=== PATIENT | female | born 1955 | race Caucasian/White ===

== ENCOUNTER 2017-05-21 13:19 | Emergency (ER) | payer MEDICARE, MEDICAID, SELFPAY ==
[2016-07-13 11:45] VITALS: BMI 31.4
[2017-05-21 13:20] VITALS: BP 102/60; PULSE 85; RESP 16; TEMP 36.7; O2SAT 98; BMI 26.9
[2017-05-21 13:26] LABS: Bedside Glucose 309 mg/dL (70-110)
[2017-05-21 13:58] LABS: Absolute Lymphocyte Count 1.42 X10^3/ul (0.83-4.51); Absolute Neutrophil Count 8.1 X10^3/uL (2.0-7.7); Basophil# 0.06 X10^3/uL; Basophil% 0.6 % (0-1); Eosinophil# 0.13 X10^3/uL; Eosinophils% 1.2 % (0-5); Hematocrit 39.8 % (37-47); Hemoglobin 13.2 g/dl (12.0-15.0); Lymphocyte # 1.42 X10^3/ul (4.0); Lymphocyte % 13.4 % (19-41); Mean Corp Hgb Conc 33.2 g/gl (32-36); Mean Corpuscular Hgb 29.7 pg (27.0-32.0); Mean Corpuscular Volume 89.4 fL (81-99); Mean Platelet Vol. 10.6 fl (6.2-12.0); Monocyte# 0.83 X10^3/uL; Monocyte% 7.8 % (0-10); Neutrophil # 8.12 X10^3/uL (2.7-7.7); Neutrophil % 76.6 % (47-70); POSITIVE COUNT NO; POSITIVE DIFFERENTIAL NO; POSITIVE MORPHOLOGY NO; Platelet Count 273 K/mm3 (150-450); RBC Distribution Width SD 41.9 fl (35.1-43.9); Red Blood Count 4.45 M/mm3 (4.2-5.4); White Blood Count 10.6 K/mm3 (4.4-11.0)
[2017-05-21 14:03] LABS: Anion Gap 9 (5-15); BUN 15 mg/dL (7-18); BUN/Creat Ratio 16.5 RATIO (10-20); Calcium,Total 9.6 mg/dL (8.5-10.1); Chloride 101 mmol/L (98-107); Creatinine, Serum 0.91 mg/dL (0.55-1.02); EST Glomerular Filtration Rate 67 mL/min (>60); Est Glom Filt Rate - Afr Amer 80 mL/min (>60); Estimated Creatinine Clearance 57.68 ml/min; Glucose 301 mg/dL (70-110); Potassium 3.4 mmol/L (3.5-5.1); Sodium Level 135 mmol/L (136-145)
[2017-05-21] MEDS: Ondansetron 4 MG/2 ML Vial IV (14:25)
[2017-05-21] MEDS: 0.9% Normal Saline 1,000 ML 1000 ML IV (14:25)
[2017-05-21] MEDS: Acetaminophen 325 MG Tablet 650 MG PO (15:38)
[2017-05-21 16:15] LABS: Bacteria 0 SEEN /hpf (None Seen); Mucous, Urine 0 SEEN /hpf (<or=2+); Red Blood Cells-Urine 0 SEEN /hpf (0-5); White Blood Cells 0 SEEN /hpf (0-5)
[2017-05-21 16:26] VITALS: BP 103/64; PULSE 60; RESP 16; O2SAT 99
[2017-05-21 16:34] LABS: Color, Urine Yellow (Yellow); Glucose, Dipstick Normal (Normal); Ketone-Dipstick 5 mg/dl (Negative); Leukocyte Esterase-Dipstick Negative /ul (Negative); Nitrite-Dipstick Negative (Negative); Occult Blood-Urine Negative /ul (Negative); Protein-Dipstick Negative (Negative); Urine Bilirubin Dipstick Negative (Negative); Urine Clarity Clear (Clear); Urine Urobilinogen Normal (Normal)
[2017-05-21 16:53] LABS: Squamous Epithelial Cells - UA 0-5 SEEN /hpf (5-10)
[2017-05-21 16:54] LABS: Amorphous Sediment 1+
--- NOTE | 2017-05-21 17:04 | ED.VISSUMM ---
- ER Visit Summary Date of Service: 05/21/17 Chief Complaint: [Abdominal pain] History of Present Illness: The patient is a 61 F [resents to the emergency department with complaint of abdominal pain, nausea and vomiting, and diarrhea. Patient states she was discharged from the hospital yesterday after being admitted for urinary tract infection. Patient try to take her medications today and she threw them up so she presented back to the emergency department for evaluation. Patient denies any fever at home. Patient denies any blood in her stool or black tarry stools. Past medical history significant for diabetes, MS, hypertension, CAD, CVA.] Physical Examination: [HEENT-PERRLA, EOMI. Cranial nerves II through XII grossly intact. TMs clear. Mucous membranes moist. No adenopathy. Cardiovascular-regular rate and rhythm without murmur or ectopy Lungs-clear to auscultation, chest wall stable without crepitus or subcu emphysema Abdomen-normoactive bowel sounds. Abdomen soft with some suprapubic tenderness on palpation. There is no rebound, rigidity, or peritoneal signs. Extremities-intact ?4, normal range of motion, normal pulses, atraumatic] Test Results: [CBC with differential obtained showed a white blood cell count 10.6, hemoglobin 13, hematocrit 40, platelets 273. Chemistries unremarkable other than a potassium of 3.4. Urinalysis was normal.] Emergency Department Course and Treatment: [Patient was medicated in the department with morphine and Zofran. Patient did feel improved. Patient had her imaging studies from her last visit evaluated as patient had a CT scan of the abdomen and pelvis was performed 3 days ago that was unremarkable. She also had an ultrasound of the kidneys and bladder that was also unremarkable. At this point I do not feel patient needs any further imaging or studies.] Treatment Plan: [Patient will be given a prescription for 12 Percocet for home. Patient has antiemetics at home. Patient to continue with her antibiotics at home.] Disposition: [Discharged home in stable condition. Patient advised to return if worsening pain, fever, persistent vomiting and diarrhea and dehydration. Patient to return if condition should worsen in any way.] Impression: [Abdominal pain Gastroenteritis] This note was generated with [employer] dictation software. It may contain incorrect words, spelling, and punctuation that were not noted in review of the chart prior to signing ED Disposition - Plan for ED Patient: Chief Complaint: Abd Pain Referrals: Matthew Noble Chi, MD [Primary Care Provider] -
--- NOTE | 2017-05-21 17:09 | ED.DCSUM_ITS ---
- ER Visit Summary Date of Service: 05/21/17 Chief Complaint: [Abdominal pain] History of Present Illness: The patient is a 61 F [resents to the emergency department with complaint of abdominal pain, nausea and vomiting, and diarrhea. Patient states she was discharged from the hospital yesterday after being admitted for urinary tract infection. Patient try to take her medications today and she threw them up so she presented back to the emergency department for evaluation. Patient denies any fever at home. Patient denies any blood in her stool or black tarry stools. Past medical history significant for diabetes , MS, hypertension, CAD, CVA.] Physical Examination: [HEENT-PERRLA, EOMI. Cranial nerves II through XII grossly intact. TMs clear. Mucous membranes moist. No adenopathy. Cardiovascular-regular rate and rhythm without murmur or ectopy Lungs-clear to auscultation, chest wall stable without crepitus or subcu emphysema Abdomen-normoactive bowel sounds. Abdomen soft with some suprapubic tenderness on palpation. There is no rebound, rigidity, or peritoneal signs. Extremities-intact ?4, normal range of motion, normal pulses, atraumatic] Test Results: [CBC with differential obtained showed a white blood cell count 10.6, hemoglobin 13, hematocrit 40, platelets 273. Chemistries unremarkable other than a potassium of 3.4. Urinalysis was normal.] Emergency Department Course and Treatment: [Patient was medicated in the department with morphine and Zofran. Patient did feel improved. Patient had her imaging studies from her last visit evaluated as patient had a CT scan of the abdomen and pelvis was performed 3 days ago that was unremarkable. She also had an ultrasound of the kidneys and bladder that was also unremarkable. At this point I do not feel patient needs any further imaging or studies.] Treatment Plan: [Patient will be given a prescription for 12 Percocet for home. Patient has antiemetics at home. Patient to continue with her antibiotics at home.] Disposition: [Discharged home in stable condition. Patient advised to return if worsening pain, fever, persistent vomiting and diarrhea and dehydration. Patient to return if condition should worsen in any way.] Impression: [Abdominal pain Gastroenteritis] This note was generated with [employer] dictation software. It may contain incorrect words, spelling, and punctuation that were not noted in review of the chart prior to signing ED Disposition - Plan for ED Patient: Chief Complaint: Abd Pain Referrals: Matthew Noble Chi, MD [Primary Care Provider] -
--- NOTE | 2017-05-21 17:09 | ED.DEP ---
ED Disposition - Plan for ED Patient: Chief Complaint: Abd Pain Instructions: ED Abdominal Pain Unkn Cause, ED Gastroenteritis Viral Prescriptions: Oxycodone HCl/Acetaminophen [Percocet 5/325] 1 tab PO Q6H PRN PRN #12 tab PRN Reason: Pain Referrals: Matthew Noble Chi, MD [Primary Care Provider] - 3-5 Days
== END 2017-05-21 17:30 | disposition home or self-care (01) ==
PROVIDERS: Emergency Provider Emergency Medicine; Family Provider Family Medicine Geriatric Medicine; PCP Family Medicine Geriatric Medicine
DX: K52.9 Noninfective gastroenteritis and colitis, unspecified (principal); I25.10 Atherosclerotic heart disease of native coronary artery without angina pectoris; G35 Multiple sclerosis; E11.9 Type 2 diabetes mellitus without complications; I10 Essential (primary) hypertension; I25.2 Old myocardial infarction; Z79.02 Long term (current) use of 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/antiplatelets; Z79.82 Long term (current) use of aspirin; Z79.4 Long term (current) use of insulin; Z79.899 Other long term (current) drug therapy; Z87.440 Personal history of urinary (tract) infections; Z86.73 Personal history of transient ischemic attack (TIA), and cerebral infarction without residual deficits; Z95.5 Presence of coronary angioplasty implant and graft
CPT/HCPCS: 80048; 81001; 82962; 85025; 96361; 96374; 99285; P9612; A4216; J2405

== ENCOUNTER 2017-05-26 16:58 | Emergency (ER) | payer MEDICARE, MEDICAID, SELFPAY ==
[2016-07-13 11:45] VITALS: BMI 31.4
[2017-05-26 17:04] VITALS: BP 90/54; PULSE 50; RESP 16; TEMP 36.4; O2SAT 98; BMI 29.5
[2017-05-26 17:08] VITALS: BP 85/47; PULSE 49; RESP 16; O2SAT 100
--- NOTE | 2017-05-26 17:13 | EKG12_ITS ---
Test Reason : Blood Pressure : / mmHG Vent. Rate : 052 BPM Atrial Rate : 052 BPM P-R Int : 170 ms QRS Dur : 116 ms QT Int : 498 ms P-R-T Axes : 057 -32 057 degrees QTc Int : 463 ms Sinus bradycardia Left axis deviation Low voltage QRS Inferior infarct , age undetermined Abnormal ECG Confirmed by ALLAN WITT, DORYS ([id number]), web content editor ANA MEDRANO ([id number]) on 06/02/2017 8:32:04 AM Referred By: TYREE Confirmed By:DORYS LEMUS MD
[2017-05-26] MEDS: 0.9% Normal Saline 1,000 ML 1000 ML IV (17:29)
--- NOTE | 2017-05-26 17:36 | ED.RN ---
DARELL KATZ RN, OBTAINED URINE VIA STRAIGHT CATH.
[2017-05-26 17:51] LABS: Bacteria 0 SEEN /hpf (None Seen)
[2017-05-26 18:04] LABS: Absolute Lymphocyte Count 1.21 X10^3/ul (0.83-4.51); Absolute Neutrophil Count 5.6 X10^3/uL (2.0-7.7); Basophil# 0.05 X10^3/uL; Basophil% 0.6 % (0-1); Eosinophil# 0.11 X10^3/uL; Eosinophils% 1.4 % (0-5); Hematocrit 31.4 % (37-47); Hemoglobin 10.2 g/dl (12.0-15.0); Lymphocyte # 1.21 X10^3/ul (4.0); Lymphocyte % 15.7 % (19-41); Mean Corp Hgb Conc 32.5 g/gl (32-36); Mean Corpuscular Hgb 29.8 pg (27.0-32.0); Mean Corpuscular Volume 91.8 fL (81-99); Monocyte# 0.68 X10^3/uL; Monocyte% 8.8 % (0-10); Neutrophil # 5.64 X10^3/uL (2.7-7.7); Neutrophil % 73.4 % (47-70); POSITIVE COUNT NO; POSITIVE DIFFERENTIAL NO; POSITIVE MORPHOLOGY NO; Platelet Count 220 K/mm3 (150-450); RBC Distribution Width CV 12.7 % (11.6-14.6); RBC Distribution Width SD 41.6 fl (35.1-43.9); Red Blood Count 3.42 M/mm3 (4.2-5.4); White Blood Count 7.7 K/mm3 (4.4-11.0)
[2017-05-26] MEDS: fentaNYL 100 MCG/2 ML Ampul 12.5 MCG IV (18:13)
[2017-05-26] MEDS: 0.9% Normal Saline 1,000 ML 150 ML IV (18:13)
[2017-05-26] MEDS: Ondansetron 4 MG/2 ML Vial IV (18:16)
[2017-05-26 18:17] VITALS: BP 102/74; PULSE 61; RESP 16; O2SAT 100
[2017-05-26 18:17] LABS: Color, Urine Yellow (Yellow); Glucose, Dipstick 250 mg/dl (Normal); Ketone-Dipstick Negative (Negative); Leukocyte Esterase-Dipstick 25 /ul (Negative); Nitrite-Dipstick Negative (Negative); Occult Blood-Urine Negative /ul (Negative); Protein-Dipstick 15 mg/dl (Negative); Urine Bilirubin Dipstick Negative (Negative); Urine Clarity Cloudy (Clear); Urine Urobilinogen 1 mg/dl (Normal)
[2017-05-26 18:23] LABS: Anion Gap 8 (5-15); BUN 28 mg/dL (7-18); BUN/Creat Ratio 35.4 RATIO (10-20); Calcium,Total 8.4 mg/dL (8.5-10.1); Chloride 104 mmol/L (98-107); Creatinine, Serum 0.79 mg/dL (0.55-1.02); EST Glomerular Filtration Rate 78 mL/min (>60); Est Glom Filt Rate - Afr Amer 94 mL/min (>60); Estimated Creatinine Clearance 66.44 ml/min; Glucose 312 mg/dL (70-110); Sodium Level 136 mmol/L (136-145)
[2017-05-26 18:33] LABS: Mucous, Urine 2+ /hpf (<or=2+)
[2017-05-26 18:35] LABS: White Blood Cells 0-5 SEEN /hpf (0-5)
[2017-05-26 18:39] LABS: Red Blood Cells-Urine 0-5 SEEN /hpf (0-5)
[2017-05-26 18:53] LABS: Renal Epithelial Cells 0 SEEN /hpf (0-5); Transitional Epithelial - Ur 5-10 SEEN /hpf (0-5)
--- NOTE | 2017-05-26 18:53 | ED.VISSUMM ---
- ER Visit Summary Date of Service: 05/26/17 Chief Complaint: Headache History of Present Illness: The patient is a 61 F who had a chronic ongoing headache for some time. Patient states she was seen at pain management today. She was given a prescription for Maxalt. She took her first dose around 330 this afternoon and then felt cold inside and lightheaded. EMS was called and transported her to the emergency room. She states the only other medication change recently has been dose of Aricept changed last week. She does state she was recently in physical therapy for some right-sided weakness. Patient reports a history of prior MS. She follows with Dr. Sher in [place]. Physical Examination: Blood pressure is 90/54, temperature 97.6, heart rate 50, respiratory rate 16, pulse ox 98% on room air. Patient is lying in bed with a wash rag over her eyes. She is in no acute distress. Heart is bradycardic and regular. Lung sounds are clear. Abdomen is soft nontender. Neuro exam reveals mild right upper extremity weakness. Normal strength is noted in the lower extremities. Sensation is normal throughout. Test Results: CBC was normal white count hemoglobin 10.2. On review of prior records her hemoglobin has ranged between 10 and 13 recently. Chemistry studies reveal BUN 28 glucose of 312. Troponin is less than 0.02. Lactic acid is normal at 1.0. EKG is sinus bradycardia at 52 bpm. No acute ischemia is noted. Emergency Department Course and Treatment: Patient is given IV fluids. Repeat systolic pressures are over 100. She is given a small dose of fentanyl and Zofran for her headache. On repeat evaluation she is resting comfortably. Blood pressure has maintained over 100 systolic. She is her headache is improved. This time she will be discharged to home. She is to call her pain management doctor tomorrow about the Maxalt that she started today. Treatment Plan: [] Disposition: Discharge Impression: 1. Cephalgia, improved 2. Hypotension, improved This note was generated with [employer] dictation software. It may contain incorrect words, spelling, and punctuation that were not noted in review of the chart prior to signing ED Disposition - Plan for ED Patient: Chief Complaint: Headache Referrals: Matthew Noble Chi, MD [Primary Care Provider] -
[2017-05-26 18:54] LABS: Squamous Epithelial Cells - UA 5-10 SEEN /hpf (5-10)
[2017-05-26 20:23] VITALS: BP 110/56; PULSE 56; RESP 16; O2SAT 98
--- NOTE | 2017-05-26 20:50 | ED.DEP ---
ED Disposition - Plan for ED Patient: Chief Complaint: Headache Instructions: ED Cephalgia Unspecified, ED Hypotension All Causes Referrals: Matthew Noble Chi, MD [Primary Care Provider] - 1-2 Days if not improving
[2017-05-26 21:18] VITALS: BP 124/69; PULSE 55; RESP 16; O2SAT 98
== END 2017-05-26 21:20 | disposition home or self-care (01) ==
PROVIDERS: Emergency Provider Emergency Medicine; Family Provider Family Medicine Geriatric Medicine; PCP Family Medicine Geriatric Medicine
DX: R51 Headache (principal); G89.29 Other chronic pain; I95.9 Hypotension, unspecified; G35 Multiple sclerosis; I51.81 Takotsubo syndrome; I10 Essential (primary) hypertension; R00.1 Bradycardia, unspecified; R53.1 Weakness; Z72.0 Tobacco use; I25.2 Old myocardial infarction; Z79.02 Long term (current) use of 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/antiplatelets; Z79.82 Long term (current) use of aspirin; Z79.4 Long term (current) use of insulin; Z79.899 Other long term (current) drug therapy
CPT/HCPCS: 80048; 81001; 83605; 84484; 85025; 93005; 96361; 96374; 96375; 99285; J7030; A4216; J2405

== ENCOUNTER 2017-05-27 12:00 | Outpatient (RCR) | payer MEDICARE, MEDICAID, SELFPAY ==
[2016-07-13 11:45] VITALS: BMI 31.4
--- NOTE | 2017-04-15 13:39 | HP.PTEVAL_ITS ---
Patient's Visit Information ELO HERNANDEZ is a 61 year old F referred to Physical Therapy by Matthew Noble with a diagnosis of MS AND FALLS. Date of Evaluation: 04/15/17 Physical Therapist: Irene Bear - Visit Plan Frequency: 2-3x /Week Duration: 4-6 Weeks Plan: GAIT AND BALANCE TRAINING. CORE AND INDIA LE ROM, STRETCHING AND STRENGTHEING TOLERATED TO HELP MEET SET GOALS. - Subjective Subjective: Disability: YES SINCE 2001 FOR MS. Present symptoms: INDIA CALF PAIN AND INDIA LEG WEAKNESS. RECENT FALL 02/16/17. Present since: JAN 2017. Pain Scale: WORST 9/10, LEAST 0/10. Currently: /10. Commenced as a result of: FALLS. Symptoms at onset: BOTH CALVES. Worse: GETTING UP AND DOWN, STANDING TOO LONG, PROLONGED WALKING. Better: SITTING DOWN AND PROPPING LEGS UP. Disturbed sleep: NO. Previous history/Previous treatment: HISTORY OF CALF PAIN SINCE 1982 WHEN SHE HAD 3 BACK SURGERIES. INCREASINGLY DEBILITATING. WORSE WITH RECENT FALLS. FELL 01/17/17 THEN MULTIPLE FALLS AFTER THAT. ADMITTED TO [facility] FOLLOWED BY ABOUT 7 WEEKS FOR REHAB AT A SKILLED NURSING WITH D/ C HOME 03/10/17. Coughing/sneezing/straining: NEGATIVE. Gait: CAME HOME FROM SKILLED NURSING IN A WHEEL CHAIR BUT TRANSITIONED TO A ROLLATOR. Difficulty initiating urinatin: NO. Accidents: MULTIPLE FALLS. FALL AT SKILLED NURSING RECENTLY WITH SPRAINING RIGHT ANKLE AND IN WALKING BOOT FOR 6 WEEKS. OUT OF ANKLE BRACE Thursday04/10/17 AND IT SEEMS FINE NOW. Unexplained weight loss: NO. Imaging: LEFT FOOT 5TH TOE FX ABOUT 2 WEEKS AGO ON X-RAY - PATIENT RAN OVER IT WITH THE W/C. PMH: SEE BELOW. MS. KIDNEY FAILURE. - Objective THIS PATIENT AMBULATES INDEP'LY INTO PT WITH A ROLLATOR X APPROX 300 FEET LEANING HEAVILY ON WALKER, WITH DECREASED CADANCE AND MILD SOB. SHE IS WEARING INDIA KNEE BRACES THAT SHE REPORTS SHE JUST Kixer YESTERDAY. SHE STATES THEY ARE HELPING. SHE IS UNABLE TO TRANSITION INDEP'LY FROM SIT TO STAND WITHOUT UE ASSIST. HER POSTURE IS POOR. FORWARD HEAD, ROUNDED SHOULDERS, INCREASED KYPHOSIS AND INCREASED TRUNK FLEXION. ACTIVE CORRECTION OF SITTING POSTURE INCREASES HER NECK PAIN. LUMBAR MVMT LOSS: FLEX - MOD, EXT - DIMITRI, INDIA SG - DIMITRI. CERVICAL MVMT LOSS: FLEX - NIL, PRO - NIL, EXT - DIMITRI, INDIA ROT - MOD TO DIMITRI, INDIA SB - DIMITRI. UNABLE TO SLS ON EITHER LEG WITHOUT UE ASSIST. INDIA LE STRENGHT: HIPS 4-/5, KNEE EXT 3-/5, KNEE FLEX 4-/5, ANKLE DORSIFLEXION 5/5. RIGHT ANKLE FEELS STRONG NOW AND PATIENT DOES NOT COMPLAIN OF INCREASED PAIN WITH TESTING. LEFT TOES NT. POOR CORE STRENGTH. - Goals Goal 1:: DECREASE C/O INDIA CALF PAIN Goal Time Frame: 4-6 Weeks Goal 2:: IMPROVE ADL, STANDING, RISING FROM SITTING AND WALKING FUNCTION Goal Time Frame: 4-6 Weeks Goal 3:: INDEP AND SAFE GAIT ON ALL SURFACES WITH LEAST AD Goal Time Frame: 4-6 Weeks Goal 4:: INDEP HEP Goal Time Frame: 4-6 Weeks - Rehabilitation Potential Rehabilitation Potential: Fair - Anticipated Interventions Patient/Client Instruction: Educate patient on: Condition, Plan of Care, Risk Factors, Benefits of Fitness Program For the Purpose of:: To improve self management Thank you for the opportunity to evaluate your patient. For Medicare and Medicare HMO plans, please review the plan of care and approve it. It will need to be FAXED BACK to us at [phone] for Medicare purposes. Please let me know if there are questions or concerns regarding this plan of care. Physician Signature: Date:
--- NOTE | 2017-05-18 15:57 | HP.PTREVAL_ITS ---
Matthew Joshi, It has been my pleasure to treat ELO HERNANDEZ over the last 8 visits for MS AND FALLS. Please see the progress note below for an update on the physical therapy plan of care! Subjective: PATIENT REPORTS HER WALKING AND COORDINATION IS GETTING BETTER WITH THERAPY AND SHE WOULD LIKE TO CONTINUE IF POSSIBLE. HAVING SOME LEFT LOW BACK PAIN NOW THAT STARTED THURSDAY FOR NO APPARENT REASON AND SHE THINKS IT MIGHT BE HER KIDNEY AND SHE WILL GO TO DR. JOSHI IF IT DOESN'T GET BETTER. SHE REPORTS HER LAST PT VISIT WENT GOOD AND SHE LIKED WORKING ON Interneer TO GET OUT OF THE CHAIR. Objective/Function: PATIENT IS MAKING SLOW PROGRESS TOWARD THE SET PT GOALS AND WOULD BE A GOOD CANDIDATE TO CONTINUE FORMAL PT AT THIS TIME. SHE IS TOLERATING A SLOW PROGRESSION OF STRENGTHEING. UPON EXAM: THIS PATIENT AMBULATES INDEP'LY INTO PT WITH A ROLLATOR X APPROX 300 FEET WITH LESS DEPENDENCE ON WALKER, BUT WITH DECREASED CADANCE AND MILD SOB. SHE IS UNABLE TO TRANSITION INDEP'LY FROM SIT TO STAND WITHOUT UE ASSIST. HER POSTURE IS POOR. FORWARD HEAD, ROUNDED SHOULDERS, INCREASED KYPHOSIS AND INCREASED TRUNK FLEXION. ACTIVE CORRECTION OF SITTING POSTURE INCREASES HER NECK PAIN. LUMBAR MVMT LOSS: FLEX - MOD, EXT - DIMITRI, INDIA SG - DIMITRI. CERVICAL MVMT LOSS: FLEX - NIL, PRO - NIL, EXT - DIMITRI, INDIA ROT - MOD TO DIMITRI, INDIA SB - DIMITRI. UNABLE TO SLS ON EITHER LEG WITHOUT UE ASSIST. INDIA LE STRENGHT: HIPS 4-/5, KNEE EXT 3-/5, KNEE FLEX 4-/5, ANKLE DORSIFLEXION 5/5. POOR CORE STRENGTH. Plan Plan: CONT PT 2-3 TIMES A WEEK X 10 VISITS FOR GAIT, BALANCE AND LE STRETNGTHEING TOLERATED. PATIENT IS AGREEABLE. Goals Goal 1:: DECREASE C/O INDIA CALF PAIN Goal Time Frame: 4-6 Weeks Goal Progress: Goal Met Goal 2:: IMPROVE ADL, STANDING, RISING FROM SITTING AND WALKING FUNCTION Goal Time Frame: 4-6 Weeks Goal Progress: Progressing Goal 3:: INDEP AND SAFE GAIT ON ALL SURFACES WITH LEAST AD Goal Time Frame: 4-6 Weeks Goal Progress: Progressing Goal 4:: INDEP HEP Goal Time Frame: 4-6 Weeks Goal Progress: Progressing Anticipated Interventions Patient/Client Instruction: Educate patient on: Condition, Plan of Care, Risk Factors, Benefits of Fitness Program For the Purpose of:: To improve self management Please do not hesitate to contact me at [phone] by phone or Fax: if you have questions or concerns regarding this new plan of care! Sincerely, Irene Bear
--- NOTE | 2017-05-27 14:07 | HP.OTEVAL_ITS ---
Patient's Visit Information ELO HERNANDEZ is a 61 year old F, referred to Occupational Therapy by Matthew Noble,, with a diagnosis of Bilateral UE weakness. Date of Evaluation: 05/27/17 Occupational Therapist: Fatuma Bello, OTR/L, CHT - Subjective Subjective: Pt reports she had had neck sx fussion of C3-C5Nov. 2015 and has had weakness of UB following sx-pt was on TCU for three weeks and returned around [employer]-but returned back to the hospital with kidney faliure and heart attack-. pt states she has had 3 back sx- and was told recently that she has a hurniated disc C6- pt reports UB weakness that is limiting her ind. with BADLS and IADLS- pt lives in mobile home with rails and 8 strairs 1-3-4- - ROM ROM Comments: PT demo all UB ROM WNL - Strength Shoulder: right 3+/5 left 3+/5 Elbow: right 3+/5 left 3+/5 Vice President Client Services: Right 37# left 22# Lateral Pinch: right unable left unable Tripod Pinch: right unable left unable - Sensation Thumb: right 3.84 left 3.61 Index: right 3.84 left 3.61 Middle: right 3.84 left 3.61 Ring: right 3.84 left 3.61 Little: right 3.84 left 3.61 - DASH-Disabilities of Arm, Shoulder& Hand DASH Sum: 88 - Goals Goal:: pt will demo a increase in lateral and tripod pinch to 3# or greater for pt to become ind. with opening containers ind. by D/c. pt will demo a increase in BUE strength to 1/2 MMT to increase pts ind. with BADls and IADLS Goal:: pt will demo understanding of ad. eq. 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 pt on ad. eq. for pt to perform BADLS and IADLS at a ERICA level. Rehabilitation Potential: Good - Anticipated Interventions Anticipated Interventions: Strengthening, Joint Protection/Energy Conservation - Visit Plan Frequency: 1-2x /Week Duration: 4 Weeks General Plan: initiate vegetable i farmworker and pinch strengthening and ed. pt on ad. eq for pt to cont to be MOD ind. with BADLS and IADLS TEXT: Thank you for the opportunity to evaluate your patient. For Medicare and Medicare HMO plans, please review the plan of care and approve it. It will need to be FAXED BACK to us at [phone] for Medicare purposes. Please let me know if there are questions or concerns regarding this plan of care. Physician Signature: Date:
--- NOTE | 2017-06-24 16:57 | HP.OT.NRP ---
HP - Discharge Summary - Patient Information ELO HERNANDEZ was seen in my office for initial evaluation on 05/27/17. The following Plan of Care was established for this patient: Initial Frequency: 1-2x /Week Initial Duration: 4 Weeks - Anticipated Interventions Anticipated Interventions: Strengthening, Joint Protection/Energy Conservation This patient was last seen in our office 05/27/17. Pertinent comments regarding their Occupational therapy will appear below: pt was scheduled 2 visits and cancelled due to illness- pt has not reschedule visits at this time and is D/C due to non attendance At this point I will be discontinuing this patient from occupational therapy. I would be happy to see this patient again in the future if found appropriate by the physician. Thank you! Fatuma Bello, OTR/L, CHT
== END 2017-05-27 12:30 | disposition home or self-care (01) ==
LOC: PT 12:00
PROVIDERS: Family Provider Family Medicine Geriatric Medicine; PCP Family Medicine Geriatric Medicine; Visit Provider Family Medicine Geriatric Medicine
DX: R29.6 Repeated falls (principal)
CPT/HCPCS: 97110; 97162; 97166; 97530

== ENCOUNTER 2017-06-02 10:57 | Observation (INO) | payer MEDICARE, MEDICAID, SELFPAY ==
[2016-07-13 11:45] VITALS: BMI 31.4
[2017-06-02] VITALS (9 sets, daily range): BP systolic 87–133; BP diastolic 44–66; PULSE 48–68; RESP 15–18; TEMP 36.3–36.7; O2SAT 97–100; BMI 28.6; BMI 27.1
--- NOTE | 2017-06-02 11:13 | RAD_ITS ---
STUDY: X-RAY CHEST REASON FOR EXAM: Female, 61 years old. Syncope. TECHNIQUE: Single AP portable view of the chest. COMPARISON: Comparison is made with prior study dated January 25, 2017. FINDINGS: EKG electrodes are seen. The lungs are clear and expanded. There is no demonstrated pleural abnormality. Normal size heart. Normal mediastinum and sara. Normal visualized pulmonary arteries. There is atherosclerotic tortuosity of the aortic arch and descending thoracic aorta. There are diffuse degenerative changes of the visualized thoracic spine. Levoscoliosis. Prior fusion in the lower cervical spine. There is no demonstrated abnormality of the visualized soft tissue structures of the upper abdomen. RAD/Chest 1 View (Portable) IMPRESSION: No acute abnormality is seen. Electronically Signed: Daljit Jordan MD at 12:21 EST Tel [phone], Service support ,
--- NOTE | 2017-06-02 11:13 | CT_ITS ---
STUDY: CT BRAIN WITHOUT CONTRAST REASON FOR EXAM: Female, 61 years old. Dizziness and syncope. RADIATION DOSAGE (If Supplied By Facility): CTDIvol = ( 44.99 ) mGy, DLP = ( 863.60 ) mGycm TECHNIQUE: Transaxial CT imaging of the brain was performed without administration of intravenous contrast material. Individualized dose optimization techniques were used for this CT. COMPARISON: Comparison is made with prior study dated March 29, 2017. FINDINGS: Normal soft tissue structures. Normal calvarium. There is mild cerebral atrophy with widening of the extra-axial spaces and ventricular dilatation. There are areas of decreased attenuation within the white matter tracts of the supratentorial brain, consistent with microvascular disease changes. Normal basal ganglia and thalami. Normal brainstem. Normal cerebellum. There is no intracranial hemorrhage. There are no findings of an acute ischemic infarction. Normal visualized paranasal sinuses. CT/Brain/Head without Contrast IMPRESSION: Chronic involutional changes of the brain. Electronically Signed: Daljit Jordan MD at 12:38 EST Tel [phone], Service support ,
--- NOTE | 2017-06-02 11:14 | EKG12_ITS ---
Test Reason : CP Blood Pressure : / mmHG Vent. Rate : 063 BPM Atrial Rate : 063 BPM P-R Int : 152 ms QRS Dur : 094 ms QT Int : 406 ms P-R-T Axes : 067 -71 078 degrees QTc Int : 415 ms Normal sinus rhythm Left axis deviation Low voltage QRS Anterolateral infarct, age undetermined, cannot be excluded Inferior infarct , age undetermined Abnormal ECG Confirmed by CATHERINE WITT, GRIS ([id number]), managing editor ANA MEDRANO ([id number]) on 06/05/2017 2:20:18 PM Referred By: Confirmed By:GRIS ALEXANDER MD
[2017-06-02 11:23] LABS: Absolute Lymphocyte Count 1.54 X10^3/ul (0.83-4.51); Absolute Neutrophil Count 6.1 X10^3/uL (2.0-7.7); Basophil# 0.05 X10^3/uL; Basophil% 0.6 % (0-1); Eosinophil# 0.11 X10^3/uL; Eosinophils% 1.3 % (0-5); Hematocrit 33.5 % (37-47); Hemoglobin 10.9 g/dl (12.0-15.0); Lymphocyte # 1.54 X10^3/ul (4.0); Lymphocyte % 18.2 % (19-41); Mean Corp Hgb Conc 32.5 g/gl (32-36); Mean Corpuscular Hgb 29.6 pg (27.0-32.0); Mean Platelet Vol. 10.3 fl (6.2-12.0); Monocyte# 0.57 X10^3/uL; Monocyte% 6.8 % (0-10); Neutrophil # 6.14 X10^3/uL (2.7-7.7); Neutrophil % 72.7 % (47-70); POSITIVE COUNT NO; POSITIVE DIFFERENTIAL NO; POSITIVE MORPHOLOGY NO; Platelet Count 256 K/mm3 (150-450); RBC Distribution Width SD 43.7 fl (35.1-43.9); Red Blood Count 3.68 M/mm3 (4.2-5.4); White Blood Count 8.4 K/mm3 (4.4-11.0)
[2017-06-02 11:38] LABS: Anion Gap 8 (5-15); BUN 30 mg/dL (7-18); BUN/Creat Ratio 31.2 RATIO (10-20); Calcium,Total 8.5 mg/dL (8.5-10.1); Chloride 102 mmol/L (98-107); Creatinine, Serum 0.96 mg/dL (0.55-1.02); EST Glomerular Filtration Rate 62 mL/min (>60); Est Glom Filt Rate - Afr Amer 75 mL/min (>60); Estimated Creatinine Clearance 54.67 ml/min; Glucose 258 mg/dL (74-106); Potassium 4.1 mmol/L (3.5-5.1); Sodium Level 132 mmol/L (136-145)
[2017-06-02 11:39] LABS: Bacteria 0 SEEN /hpf (None Seen); Mucous, Urine 0 SEEN /hpf (<or=2+); Red Blood Cells-Urine 0 SEEN /hpf (0-5)
[2017-06-02 11:41] LABS: Color, Urine Yellow (Yellow); Glucose, Dipstick Normal (Normal); Ketone-Dipstick Negative (Negative); Leukocyte Esterase-Dipstick 25 /ul (Negative); Nitrite-Dipstick Negative (Negative); Occult Blood-Urine Negative /ul (Negative); Protein-Dipstick Negative (Negative); Urine Bilirubin Dipstick Negative (Negative); Urine Clarity Sl. Cloudy (Clear); Urine Urobilinogen Normal (Normal)
[2017-06-02 11:46] LABS: White Blood Cells 0-5 SEEN /hpf (0-5)
[2017-06-02 11:47] LABS: Squamous Epithelial Cells - UA 0-5 SEEN /hpf (5-10)
[2017-06-02] MEDS: 0.9% Normal Saline 1,000 ML 150 ML IV (12:54)
[2017-06-02] MEDS: Ondansetron 4 MG/2 ML Vial IV (12:55)
--- NOTE | 2017-06-02 13:10 | ED.VISSUMM ---
- ER Visit Summary Date of Service: 06/02/17 Chief Complaint: [Syncope] History of Present Illness: The patient is a 61 F [presents to the emergency department with syncopal episodes ?3 this morning. Patient states that she woke up not feeling well and very lightheaded with standing. Patient states that she went to the restroom and thinks she may have passed out that she remembers waking up next to the toilet. Patient does not think she hit her head. Patient states that she had a couple more episodes where she passed I will try to get up from a seated position. Patient states that she feels wobbly and lightheaded with standing. Patient states that she was up urinating frequently last night about 7 or 8 times. Patient denies any fevers. She does describe headache and pain in her back which is chronic. Patient has a history of coronary artery disease, diabetes, hypertension, COPD, depression, anxiety, paroxysmal A. fib, MS.] Physical Examination: [HEENT-PERRLA, EOMI. Cranial nerves II through XII grossly intact. TMs clear. Mucous membranes dry. No adenopathy. Cardiovascular-regular rate and rhythm without murmur or ectopy Lungs-clear to auscultation, chest wall stable without crepitus or subcu emphysema Abdomen-normoactive bowel sounds, soft, nontender, no rebound or rigidity, no peritoneal signs. Back exam-patient has some mild diffuse tenderness throughout her lower back. Negative straight leg raises. Deep tendon reflexes are plus 2 out of 4 bilaterally at the patella and Achilles. Extremities-intact ?4, normal range of motion, normal pulses, atraumatic] Test Results: [EKG obtained on arrival shows sinus bradycardia with rate of [address] changes noted. When compared with prior EKG from May 26 no new changes are noted. CBC with differential showed a white blood cell count of 8.4, hemoglobin 10.9, hematocrit 33, platelets 256. Chemistries unremarkable. Troponin was less than 0.02. CT scan of the brain showed chronic changes otherwise nothing acute. Chest x-ray showed nothing acute.] Emergency Department Course and Treatment: [Patient was given 500 cc fluid bolus and also formal grams of morphine 4 mg Zofran for her pain.] Treatment Plan: [Patient will be admitted for further workup and treatment of her syncope.] Disposition: [Admit] Impression: [Syncope Hypotension Chronic back pain] This note was generated with [employer] dictation software. It may contain incorrect words, spelling, and punctuation that were not noted in review of the chart prior to signing ED Disposition - Plan for ED Patient: Chief Complaint: Syncope Referrals: Matthew Noble Chi, MD [Primary Care Provider] -
--- NOTE | 2017-06-02 15:02 | PCM.HP.STD ---
Problem List (1) History of cervical discectomy Status: Resolved (2) Lower limb amputation, great toe Status: Resolved (3) History of tubal ligation Status: Resolved (4) History of back surgery Status: Resolved (5) History of adenoidectomy Status: Resolved (6) History of carpal tunnel release of both wrists Status: Resolved (7) History of tonsillectomy Status: Resolved (8) History of coronary artery stent placement Status: Chronic (9) BRYAN (obstructive sleep apnea) Status: Chronic (10) Ischemic cardiomyopathy Status: Chronic (11) Frequent falls Status: Chronic (12) Diabetes mellitus type 2 in nonobese Status: Chronic (13) Apical mural thrombus with acute MO Status: Chronic (14) Multiple sclerosis, relapsing-remitting Status: Chronic (15) COPD (chronic obstructive pulmonary disease) Status: Chronic Qualifiers: (16) HTN (hypertension) Status: Chronic Qualifiers: (17) Hyperlipemia Status: Chronic Qualifiers: (18) Cervical spinal stenosis Status: Chronic (19) Depression Status: Chronic Qualifiers: (20) Irritable bowel syndrome with diarrhea Status: Chronic (21) Vitamin B12 deficiency Status: Chronic (22) Menopausal disorder Status: Chronic (23) Hypomagnesemia Status: Chronic (24) Restless leg syndrome Status: Chronic (25) CAD (coronary artery disease) Status: Chronic Qualifiers: (26) Anxiety Status: Chronic (27) Tobacco abuse Status: Chronic (28) Hypotension Status: Resolved (29) Iron deficiency Status: Chronic (30) PAF (paroxysmal atrial fibrillation) Status: Chronic (31) Dehydration Status: Resolved (32) Acute renal failure Status: Resolved (33) Hyponatremia Status: Resolved (34) Radiculitis, thoracic Status: Chronic Comment: improved with increase in the Gabapentin (35) Metabolic encephalopathy Status: Resolved Comment: due to acute renal failure and overmedication History of Present Illness Date of Admission: 06/02/17 Chief Complaint: Syncope, weakness. The patient is a 61 year old F who presents to the emergency due to syncopal episode while using the restroom this morning. Patient states she woke up not feeling well. She states she was dizzy and had a few episodes of loose stool. She states she went to use the restroom and states she woke up on the side of the bathtub, next to the toilet. She is not aware that she hit her head. Not aware of any other injuries from the episode. Patient states her legs felt weak and she had difficulty standing. She denies recent illness. Denies fever. Complains of chills. Patient was recently admitted 05/18/2017 due to UTI. Patient states she had frequent urination last night and this morning. She denies other associated urinary symptoms. Patient states she was recently set up with palliative care, however they have not yet come to the house. She states she recently had a falling out with her pain management doctor who she saw for chronic back pain. Patient states her primary care physician, Dr. Noble is prescribing her Percocet until she establishes with palliative care. Patient lives alone and has friends who check in on her. Patient has a past medical history of obstructive sleep apnea, type 2 diabetes mellitus, COPD, tobacco abuse, hypertension, hyperlipidemia, depression, chronic back pain, CAD status post PCI, cardiomyopathy, paroxysmal atrial fibrillation, iron deficiency anemia, and cognitive impairment/dementia, MS. Past Medical History Past Medical History (Chronic Problems): Chronic Problems (Last Reviewed 04/23/17 @ 11:15 by Sima Rocha) History of coronary artery stent placement (Chronic) BRYAN (obstructive sleep apnea) (Chronic) Ischemic cardiomyopathy (Chronic) Frequent falls (Chronic) Diabetes mellitus type 2 in nonobese (Chronic) Apical mural thrombus with acute MO (Chronic) Multiple sclerosis, relapsing-remitting (Chronic) COPD (chronic obstructive pulmonary disease) (Chronic) HTN (hypertension) (Chronic) Hyperlipemia (Chronic) Cervical spinal stenosis (Chronic) Depression (Chronic) Irritable bowel syndrome with diarrhea (Chronic) Vitamin B12 deficiency (Chronic) Menopausal disorder (Chronic) Hypomagnesemia (Chronic) Restless leg syndrome (Chronic) CAD (coronary artery disease) (Chronic) Anxiety (Chronic) Tobacco abuse (Chronic) Iron deficiency (Chronic) PAF (paroxysmal atrial fibrillation) (Chronic) Radiculitis, thoracic (Chronic) improved with increase in the Gabapentin Allergies indomethacin [From Indocin] Allergy (Verified 06/02/17 10:58) Hives indomethacin sodium [From Indocin] Allergy (Verified 06/02/17 10:58) Hives iodine Allergy (Verified 06/02/17 10:58) Hives propoxyphene napsylate [From Darvocet-N] Allergy (Verified 06/02/17 10:58) Out of control aspirin Adverse Reaction (Verified 06/02/17 10:58) Upset Stomach when taken in high doses clindamycin Adverse Reaction (Verified 06/02/17 10:58) Nausea sumatriptan [From Imitrex] Adverse Reaction (Verified 06/02/17 10:58) Vomiting Home Medications: Ambulatory Orders Medication Instructions Recorded Aspirin E.C. [Ecotrin] 81 mg PO DAILY@0800 10/21/16 Bupropion HCl [Wellbutrin Sr] 200 mg PO BID 10/21/16 Citalopram [Celexa] 30 mg PO DAILY 10/21/16 Eluxadoline [Viberzi] 75 mg PO BID 10/21/16 Estradiol [Estrace (G)] 1 mg PO DAILY 10/21/16 Glimepiride [Amaryl] 4 mg PO BID 10/21/16 Insulin Detemir [Levemir FlexPen] 10 units SC DAILY PRN PRN 10/21/16 Medroxyprogesterone Acetate 2.5 mg PO DAILY 10/21/16 [Provera] Potassium Chloride [K-Dur] 20 meq PO BID 10/21/16 Ropinirole HCl [Requip] 1 mg PO QHS PRN 11/16/16 Suvorexant [Belsomra] 20 mg PO QHS PRN 11/16/16 Donepezil HCl [Aricept] 20 mg PO DAILY 01/25/17 Albuterol Aerosols [Ventolin 2.5 mg INHALATION Q2H PRN PRN 01/28/17 Aerosols] modafinil 200 mg tablet 200 mg PO DAILY 15 Days #30 04/01/17 rosuvastatin 40 mg tablet 40 mg PO QHS 28 Days #28 04/01/17 Carvedilol [Coreg (Beta Marielle)] 3.125 mg PO BID 05/18/17 Clopidogrel Bisulfate [Plavix] 75 mg PO DAILY 05/18/17 Furosemide [Lasix] 40 mg PO QAM 05/18/17 lisinopril 2.5 mg tablet 2.5 mg PO DAILY #28 tab 05/26/17 Ibuprofen [Motrin] 800 mg PO TID PRN PRN 06/02/17 Isosorbide Mononitrate [Imdur] 30 mg PO DAILY 06/02/17 Teriflunomide [Aubagio] 7 mg PO DAILY 06/02/17 Tizanidine HCl [Zanaflex] 4 mg PO TID 06/02/17 Surgical History: adenoidectomy, tonsillectomy, - - L foot great toe ampuation, Back surgery x 3, L carpal tunnel surgery x 2, R carpal tunnel surgery x 1, R thumb reconstructive surgery. cervical spinal surgery february 27 at [facility]. Psychiatric History: Anxiety, Depression, - - Mild cognitive impairment [employer] History: - - Menopausal syndrome. Lives: Alone Smoking Status: Former smoker Tobacco Use: Cigarettes Alcohol: None Drugs: None - *Family History Maternal History Items: Cancer - mother pancreatic ca Paternal History Items: Cancer - father lung ca., - - Lung cancer Review of Systems Constitutional: Reports: Chills, Weakness, Fatigue. Denies: Anorexia, Fever HEENT: Denies: Head Aches, Sinus Congestion, Sinus Drainage Cardiovascular: Reports: Syncope. Denies: Chest Pain, Palpitations Respiratory: Denies: Cough, Shortness of breath at rest, Sputum production Gastrointestinal: Reports: Nausea, - - Loose stool.. Denies: Abdominal Pain, Constipation, Diarrhea, Vomiting Genitourinary: Reports: Frequency. Denies: Dysuria, Hematuria, Incontinence Musculoskeletal: Reports: Back Pain - Chronic, Neck Pain - Chronic Skin: Denies: Rash, Wounds Neurological: Denies: Numbness, Tingling, Focal weakness Psychiatric: Denies: Anxiety, Depression, Homicidal Ideations, Suicidal Ideations Hematologic/ Lymphatic: Denies: Easy Bruising, Easy Bleeding VTE Information - Inpt Only VTE Present on Admission: No VTE Mechan Device Prophylaxis: None VTE Pharm Prophylaxis ordered?: Yes - Physical Exam General: Alert, Oriented x3, Cooperative, No apparent distress HEENT: Atraumatic, PERRLA, EOMI, Normocephalic Neck: Supple, No JVD, Negative Carotid Bruits Lungs: Clear to auscultation, Normal air movement Cardiovascular: Regular Rhythm, Normal S1, Normal S2, No murmurs, Bradycardic Abdomen: Bowel Sounds Present, Soft, Non Tender, Non-Distended Extremities: No clubbing, No cyanosis, No edema, Capillary Refill Less than 3 Seconds Skin: No rashes, No breakdown Musculoskeletal: No Tenderness to Palpation of Joints or Extremities Neurological: Cranial nerves II-XII grossly intact, Neuro grossly intact Psych/Mental Status: Normal Affect, Appropriate Vital Signs Temp Pulse Resp BP Pulse Ox 97.4 F L 48 L 15 104/53 L 97 06/02/17 10:59 06/02/17 13:54 06/02/17 13:54 06/02/17 13:54 06/02/17 13:54 Assessment/Plan 1. Syncope suspected secondary to hypotension/bradycardia-patient with bradycardia and hypotension on admission. Received IV fluids. EKG showed sinus bradycardia with nonspecific ST changes. No changes noted from previous EKG in April 2017. Urinalysis unremarkable. Chest x-ray unremarkable. CT of brain normal. Blood pressure improved with IV fluids. Cycle enzymes. Monitor telemetry overnight. PT/OT. Echocardiogram 07/22/2016 showed an estimated ejection fraction of 40%, moderate segmental systolic dysfunction. Patient follows with Dr. Butler. Patient has a loop recorder which was interrogated in the ED. No repeat echo is necessary at this time. Hold home Lasix regimen. Check orthostatic vitals. 2. Weakness/frequent falls at home/general physical debility-underlying MS. [facility] PT/OT eval. Fall precautions. Consult case management for discharge planning. 3. Type 2 diabetes mellitus-hold home oral regimen. Accu-Cheks before meals at bedtime with sliding scale insulin. Hemoglobin A1c October 2016 8.7%. 4. COPD-no acute exacerbation. Albuterol and DuoNeb aerosols. 5. Obstructive sleep apnea 6. Hypertension-patient's blood pressure hypotensive on admission. Improved with IV fluids. Continue home metoprolol, Imdur, lisinopril regimen. Lasix on hold. 7. Hyperlipidemia- continue statin. 8. CAD status post PCI/cardiomyopathy-follows with Dr. Butler. Denies chest pain. Continue aspirin, Plavix, statin. 9. Paroxysmal atrial fibrillation-currently sinus bradycardia. Continue aspirin, beta-marielle. Not on anticoagulation. 10. Iron deficiency anemia-not on iron supplementation. Hemoglobin stable. 11. Chronic back pain-previously followed with pain management and had a falling out. Patient states she is to be set up with palliative care. 12. Cognitive impairment/dementia-continue home regimen. 13. Tobacco abuse-encourage smoking cessation. He continues to smoke a pack per day. Nicotine replacement patch if needed. DVT prophylaxis-heparin subcu. This patient was seen by JAYRO Mckeon under the supervision of Dr. Fisher.
--- NOTE | 2017-06-02 15:15 | PCM.PACRNU ---
Pacer Nurse Hospital Visit Notes: Implantable Loop Recorder Evaluation: Interrogation completed at bedside ER #6 per MD order. Interrogation shows 133 pauses, 24 rj episodes and no AT/AF episodes since 07/17/14. No episodes noted since 05/28/17 and stored e-grams show undersensing and no true pauses noted. Same with rj episodes no true bradycardia 30 bpm or lower noted. Presenting rhythm shows Sinus Bradycardia @ 48 bpm. Sensitivity 0.45mV. Battery Good. No parameter changes made. Counters cleared. Dr. Butler notified of above. Next remote f/u appt scheduled for in 3 mos. Jodi Castro RN - Pacer Check Procedure Procedures: 00418 PM Eval Single
[2017-06-02] MEDS: 0.9% Normal Saline 1,000 ML 100 ML IV (16:12)
[2017-06-02] MEDS: oxyCODONE 5 MG Tablet PO ×2 (16:21→20:34)
[2017-06-02 16:46] LABS: Bedside Glucose 167 mg/dL (70-110)
[2017-06-02] MEDS: Glimepiride 4 MG Tablet PO (17:08)
[2017-06-02] MEDS: Heparin Injection 5,000 UNITS/ML Syringe 5000 UNITS SC (22:03)
[2017-06-02] MEDS: Carvedilol 3.125 MG TABLET PO (22:03)
[2017-06-02] MEDS: Pramipexole Di-HCl 0.5 MG Tablet PO (22:13)
[2017-06-02 22:21] LABS: Bedside Glucose 210 mg/dL (70-110)
[2017-06-03] MEDS: oxyCODONE 5 MG Tablet PO ×3 (00:49→09:24)
[2017-06-03] MEDS: 0.9% Normal Saline 1,000 ML 100 ML IV (02:36)
[2017-06-03 03:07] VITALS: PULSE 56
[2017-06-03 03:56] VITALS: BP 111/59; PULSE 60; RESP 18; TEMP 36.6; O2SAT 96
[2017-06-03 03:57] VITALS: BP 111/59; BP 120/63; BP 128/68; PULSE 56; PULSE 60; PULSE 71
[2017-06-03] MEDS: Heparin Injection 5,000 UNITS/ML Syringe 5000 UNITS SC (05:16)
[2017-06-03 06:09] LABS: Anion Gap 6 (5-15); BUN 18 mg/dL (7-18); BUN/Creat Ratio 25.6 RATIO (10-20); Calcium,Total 8.3 mg/dL (8.5-10.1); Chloride 109 mmol/L (98-107); EST Glomerular Filtration Rate 90 mL/min (>60); Est Glom Filt Rate - Afr Amer 109 mL/min (>60); Estimated Creatinine Clearance 71.96 ml/min; Glucose 221 mg/dL (74-106); Sodium Level 138 mmol/L (136-145)
[2017-06-03 06:51] LABS: Bedside Glucose 216 mg/dL (70-110)
[2017-06-03 07:48] VITALS: PULSE 58
[2017-06-03] MEDS: Aspirin E.C. 81 MG Tablet PO (08:04)
[2017-06-03] MEDS: Glimepiride 4 MG Tablet PO (08:04)
[2017-06-03] MEDS: Estradiol 1 MG Tablet PO (08:04)
--- NOTE | 2017-06-03 09:01 | CASEMGMT ---
SW received referral regarding Palliative Care. PRAVIN called Palliative Care and spoke with Opal. She said they received the referral, but have not been out to see her yet. SW let her know patient is in the hospital observation for syncope. She said they probably won't get out to see her until next week. Rajwinder SANCHEZ MSW
--- NOTE | 2017-06-03 09:09 | CASEMGMT ---
PRAVIN called [facility] as patient is on Passport. PRAVIN let the coverage line know patient is here observation status for syncope. Patient's case management director is Dung Wolf ([phone]). She goes to [facility], , she has a medical alert button, she gets 7 [employer]'s Meals a week, and she has personal care through [facility] [employer] [facility] for 2 hours each time. Rajwinder SANCHEZ LUSTERER
[2017-06-03 09:25] VITALS: BP 113/63; PULSE 58; RESP 16; TEMP 36.9; O2SAT 99
[2017-06-03] MEDS: Citalopram 20 MG Tablet 30 MG PO (09:25)
[2017-06-03] MEDS: Clopidogrel Bisulfate 75 MG Tablet PO (09:25)
[2017-06-03] MEDS: Donepezil HCl 10 MG Tablet PO (09:25)
[2017-06-03] MEDS: Isosorbide Mononitrate 30 MG Tablet PO (09:25)
[2017-06-03] MEDS: Lisinopril 2.5 MG Tablet PO (09:25)
[2017-06-03] MEDS: Carvedilol 3.125 MG TABLET PO (09:27)
[2017-06-03] MEDS: Modafinil 200 MG Tablet PO (09:32)
--- NOTE | 2017-06-03 09:49 | DCINST_ITS ---
You will use the following diet at home:: Calorie/Carbohydrate Controlled ( specify 1200, 1400, etc) Discharge Activity: Return to Normal Activity Call your doctor if you observe: Fever of 101 or Higher, Shortness of breath, Dizziness, Fainting spells, Chest pain, Increased palpitations (irregular heartbeat) Allergies/Adverse Reactions: Allergies indomethacin [From Indocin] Allergy (Verified 06/02/17 10:58) Hives indomethacin sodium [From Indocin] Allergy (Verified 06/02/17 10:58) Hives iodine Allergy (Verified 06/02/17 10:58) Hives propoxyphene napsylate [From Darvocet-N] Allergy (Verified 06/02/17 10:58) Out of control aspirin Adverse Reaction (Verified 06/02/17 10:58) Upset Stomach when taken in high doses clindamycin Adverse Reaction (Verified 06/02/17 10:58) Nausea sumatriptan [From Imitrex] Adverse Reaction (Verified 06/02/17 10:58) Vomiting Medications to take at Discharge Aspirin E.C. [Ecotrin] 81 mg PO DAILY@0800 10/21/16 Bupropion HCl [Wellbutrin Sr] 200 mg PO BID 10/21/16 Citalopram [Celexa] 30 mg PO DAILY 10/21/16 Eluxadoline [Viberzi] 75 mg PO BID 10/21/16 Estradiol [Estrace (G)] 1 mg PO DAILY 10/21/16 Glimepiride [Amaryl] 4 mg PO BID 10/21/16 Insulin Detemir [Levemir FlexPen] 10 units SC DAILY PRN PRN 10/21/16 Medroxyprogesterone Acetate [Provera] 2.5 mg PO DAILY 10/21/16 Ropinirole HCl [Requip] 1 mg PO QHS PRN 11/16/16 Suvorexant [Belsomra] 20 mg PO QHS PRN 11/16/16 Donepezil HCl [Aricept] 20 mg PO DAILY 01/25/17 Albuterol Aerosols [Ventolin Aerosols] 2.5 mg INHALATION Q2H PRN PRN 01/28/17 modafinil 200 mg tablet 200 mg PO DAILY 15 Days #30 04/01/17 rosuvastatin 40 mg tablet 40 mg PO QHS 28 Days #28 04/01/17 Carvedilol [Coreg (Beta Marielle)] 3.125 mg PO BID 05/18/17 Clopidogrel Bisulfate [Plavix] 75 mg PO DAILY 05/18/17 lisinopril 2.5 mg tablet 2.5 mg PO DAILY #28 tab 05/26/17 Ibuprofen [Motrin] 800 mg PO TID PRN PRN 06/02/17 Isosorbide Mononitrate [Imdur] 30 mg PO DAILY 06/02/17 Teriflunomide [Aubagio] 7 mg PO DAILY 06/02/17 Tizanidine HCl [Zanaflex] 4 mg PO TID 06/02/17 Primary Care Physician: Matthew Noble Chi, MD [Primary Care Provider] - Please follow up with your Primary Care Physician in: 1 Week Please Follow Up With: Elias Butler MD When: As scheduled Proposed Discharge Date: 06/03/17
--- NOTE | 2017-06-03 09:52 | PCM.DC.SUM ---
Discharge Date and Diagnosis Date of Admission: 06/02/17 Date of Discharge: 06/03/17 - Primary Discharge Diagnosis 1. Syncope-etiology unclear. Suspect secondary to dehydration. - Secondary Discharge Diagnosis Chronic Problems (Last Reviewed 04/23/17 @ 11:15 by Sima Rocha) History of coronary artery stent placement (Chronic) BRYAN (obstructive sleep apnea) (Chronic) Ischemic cardiomyopathy (Chronic) Frequent falls (Chronic) Diabetes mellitus type 2 in nonobese (Chronic) Apical mural thrombus with acute HI (Chronic) Multiple sclerosis, relapsing-remitting (Chronic) COPD (chronic obstructive pulmonary disease) (Chronic) HTN (hypertension) (Chronic) Hyperlipemia (Chronic) Cervical spinal stenosis (Chronic) Depression (Chronic) Irritable bowel syndrome with diarrhea (Chronic) Vitamin B12 deficiency (Chronic) Menopausal disorder (Chronic) Hypomagnesemia (Chronic) Restless leg syndrome (Chronic) CAD (coronary artery disease) (Chronic) Anxiety (Chronic) Tobacco abuse (Chronic) Iron deficiency (Chronic) PAF (paroxysmal atrial fibrillation) (Chronic) Radiculitis, thoracic (Chronic) improved with increase in the Gabapentin Hospital Course and Treatment Imaging Results: Diagnostic Data Brain CT 06/02/17 11:13 IMPRESSION: Chronic involutional changes of the brain. Electronically Signed: Daljit Jordan MD at 12:38 EST Tel [phone], Service support , Chest X-Ray 06/02/17 11:13 IMPRESSION: No acute abnormality is seen. Electronically Signed: Daljit Jordan MD at 12:21 EST Tel [phone], Service support , Operations: None Procedures: None Summary of Care Provided: The patient is a 61 year old F admitted 06/02/17 due to syncope, weakness. Patient has a past medical history of obstructive sleep apnea, type 2 diabetes mellitus, COPD, tobacco abuse, hypertension, hyperlipidemia, depression, chronic back pain, CAD status post PCI, cardiomyopathy, paroxysmal atrial fibrillation, iron deficiency anemia, and cognitive impairment/dementia, MS. Patient states she was recently set up with palliative care, however they have not yet come to the house. She states she recently had a falling out with her pain management doctor who she saw for chronic back pain. Patient states her primary care physician, Dr. Noble is prescribing her Percocet until she establishes with palliative care. Patient has a rehabilitation case coordinator and has many resources including [employer], [employer], medical alert button, meal delivery, and home health care. Patient requesting further pain medication during admission. Patient had oxycodone prescription filled 05/29/[address] Noble for 20 tablets. Patient instructed that she will not receive any further pain medication at discharge. Syncope suspected secondary to hypotension and bradycardia as a result of dehydration. She received IV fluids and blood pressure improved. She will discontinue Lasix going forward. Patient follows with Dr. Butler she will continue outpatient follow-up with. EKG showed sinus bradycardia with nonspecific ST changes. No changes noted from previous EKG in April 2017. Urinalysis unremarkable. Chest x-ray unremarkable. CT of brain normal. Troponin negative. Echocardiogram 07/22/2016 showed an estimated ejection fraction of 40%, moderate segmental systolic dysfunction. Patient has a loop recorder which was interrogated in the ED. orthostatic vitals negative. Other chronic medical conditions as noted above are stable at this time. Patient is stable for discharge home with recommendations as noted above. General: Alert, Oriented x3, Cooperative, No apparent distress HEENT: Atraumatic, PERRLA, EOMI, Normocephalic Neck: Supple, No JVD, Negative Carotid Bruits Lungs: Clear to auscultation, Normal air movement Cardiovascular: Regular Rhythm, Normal S1, Normal S2, No murmurs, Bradycardic Abdomen: Bowel Sounds Present, Soft, Non Tender, Non-Distended Extremities: No clubbing, No cyanosis, No edema, Capillary Refill Less than 3 Seconds Skin: No rashes, No breakdown Musculoskeletal: No Tenderness to Palpation of Joints or Extremities Neurological: Cranial nerves II-XII grossly intact, Neuro grossly intact Psych/Mental Status: Normal Affect, Appropriate Patient seen and examined prior to discharge. Physical assessment as noted above This patient was seen by JAYRO Mckeon under the supervision of Dr. Mccrary. Discharge Diet: Low fat/ Low Cholesterol, Carb Control Diet Discharge Activity: Return to Normal Activity Call your doctor if you observe: Fever of 101 or Higher, Shortness of breath, Dizziness, Fainting spells, Chest pain, Increased palpitations (irregular heartbeat) Home Medications: Medications to take at Discharge Aspirin E.C. [Ecotrin] 81 mg PO DAILY@0800 10/21/16 Bupropion HCl [Wellbutrin Sr] 200 mg PO BID 10/21/16 Citalopram [Celexa] 30 mg PO DAILY 10/21/16 Eluxadoline [Viberzi] 75 mg PO BID 10/21/16 Estradiol [Estrace (G)] 1 mg PO DAILY 10/21/16 Glimepiride [Amaryl] 4 mg PO BID 10/21/16 Insulin Detemir [Levemir FlexPen] 10 units SC DAILY PRN PRN 10/21/16 Medroxyprogesterone Acetate [Provera] 2.5 mg PO DAILY 10/21/16 Ropinirole HCl [Requip] 1 mg PO QHS PRN 11/16/16 Suvorexant [Belsomra] 20 mg PO QHS PRN 11/16/16 Donepezil HCl [Aricept] 20 mg PO DAILY 01/25/17 Albuterol Aerosols [Ventolin Aerosols] 2.5 mg INHALATION Q2H PRN PRN 01/28/17 modafinil 200 mg tablet 200 mg PO DAILY 15 Days #30 04/01/17 rosuvastatin 40 mg tablet 40 mg PO QHS 28 Days #28 04/01/17 Carvedilol [Coreg (Beta Marielle)] 3.125 mg PO BID 05/18/17 Clopidogrel Bisulfate [Plavix] 75 mg PO DAILY 05/18/17 lisinopril 2.5 mg tablet 2.5 mg PO DAILY #28 tab 05/26/17 Ibuprofen [Motrin] 800 mg PO TID PRN PRN 06/02/17 Isosorbide Mononitrate [Imdur] 30 mg PO DAILY 06/02/17 Teriflunomide [Aubagio] 7 mg PO DAILY 06/02/17 Tizanidine HCl [Zanaflex] 4 mg PO TID 06/02/17 Primary Care Physician: Matthew Noble Chi, MD [Primary Care Provider] - Please follow up with your Primary Care Physician in: 1 Week Please Follow Up With: Elias Butler MD When: As scheduled Disposition: Home with Home Health Minutes spent on discharge:: 35 Patient Condition:: Stable Meaningful Use Info Meaningful Use Diagnoses (Choose all that apply): None applicable
--- NOTE | 2017-06-03 10:07 | DS.PCM_ITS ---
Discharge Date and Diagnosis Date of Admission: 06/02/17 Date of Discharge: 06/03/17 - Primary Discharge Diagnosis 1. Syncope-etiology unclear. Suspect secondary to dehydration. - Secondary Discharge Diagnosis Chronic Problems (Last Reviewed 04/23/17 @ 11:15 by Sima Rocha) History of coronary artery stent placement (Chronic) BRYAN (obstructive sleep apnea) (Chronic) Ischemic cardiomyopathy (Chronic) Frequent falls (Chronic) Diabetes mellitus type 2 in nonobese (Chronic) Apical mural thrombus with acute DE (Chronic) Multiple sclerosis, relapsing-remitting (Chronic) COPD (chronic obstructive pulmonary disease) (Chronic) HTN (hypertension) (Chronic) Hyperlipemia (Chronic) Cervical spinal stenosis (Chronic) Depression (Chronic) Irritable bowel syndrome with diarrhea (Chronic) Vitamin B12 deficiency (Chronic) Menopausal disorder (Chronic) Hypomagnesemia (Chronic) Restless leg syndrome (Chronic) CAD (coronary artery disease) (Chronic) Anxiety (Chronic) Tobacco abuse (Chronic) Iron deficiency (Chronic) PAF (paroxysmal atrial fibrillation) (Chronic) Radiculitis, thoracic (Chronic) improved with increase in the Gabapentin Hospital Course and Treatment Imaging Results: Diagnostic Data Brain CT 06/02/17 11:13 IMPRESSION: Chronic involutional changes of the brain. Electronically Signed: Daljit Jordan MD at 12:38 EST Tel [phone], Service support , Chest X-Ray 06/02/17 11:13 IMPRESSION: No acute abnormality is seen. Electronically Signed: Daljit Jordan MD at 12:21 EST Tel [phone], Service support , Operations: None Procedures: None Summary of Care Provided: The patient is a 61 year old F admitted 06/02/17 due to syncope, weakness. Patient has a past medical history of obstructive sleep apnea, type 2 diabetes mellitus, COPD, tobacco abuse, hypertension, hyperlipidemia, depression, chronic back pain, CAD status post PCI, cardiomyopathy, paroxysmal atrial fibrillation, iron deficiency anemia, and cognitive impairment/dementia, MS. Patient states she was recently set up with palliative care, however they have not yet come to the house. She states she recently had a falling out with her pain management doctor who she saw for chronic back pain. Patient states her primary care physician, Dr. Noble is prescribing her Percocet until she establishes with palliative care. 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 Patient requesting further pain medication during admission. Patient had oxycodone prescription filled 05/29/[address] Noble for 20 tablets. Patient instructed that she will not receive any further pain medication at discharge. Syncope suspected secondary to hypotension and bradycardia as a result of dehydration. She received IV fluids and blood pressure improved. She will discontinue Lasix going forward. Patient follows with Dr. Butler she will continue outpatient follow-up with. EKG showed sinus bradycardia with nonspecific ST changes. No changes noted from previous EKG in April 2017. Urinalysis unremarkable. Chest x-ray unremarkable. CT of brain normal. Troponin negative. Echocardiogram 07/22/2016 showed an estimated ejection fraction of 40%, moderate segmental systolic dysfunction. Patient has a loop recorder which was interrogated in the ED. orthostatic vitals negative. Other chronic medical conditions as noted above are stable at this time. Patient is stable for discharge home with recommendations as noted above. General: Alert, Oriented x3, Cooperative, No apparent distress HEENT: Atraumatic, PERRLA, EOMI, Normocephalic Neck: Supple, No JVD, Negative Carotid Bruits Lungs: Clear to auscultation, Normal air movement Cardiovascular: Regular Rhythm, Normal S1, Normal S2, No murmurs, Bradycardic Abdomen: Bowel Sounds Present, Soft, Non Tender, Non-Distended Extremities: No clubbing, No cyanosis, No edema, Capillary Refill Less than 3 Seconds Skin: No rashes, No breakdown Musculoskeletal: No Tenderness to Palpation of Joints or Extremities Neurological: Cranial nerves II-XII grossly intact, Neuro grossly intact Psych/Mental Status: Normal Affect, Appropriate Patient seen and examined prior to discharge. Physical assessment as noted above This patient was seen by JAYRO Mckeon under the supervision of Dr. Mccrary. Discharge Diet: Low fat/ Low Cholesterol, Carb Control Diet Discharge Activity: Return to Normal Activity Call your doctor if you observe: Fever of 101 or Higher, Shortness of breath, Dizziness, Fainting spells, Chest pain, Increased palpitations (irregular heartbeat) Home Medications: Medications to take at Discharge Aspirin E.C. [Ecotrin] 81 mg PO DAILY@0800 10/21/16 Bupropion HCl [Wellbutrin Sr] 200 mg PO BID 10/21/16 Citalopram [Celexa] 30 mg PO DAILY 10/21/16 Eluxadoline [Viberzi] 75 mg PO BID 10/21/16 Estradiol [Estrace (G)] 1 mg PO DAILY 10/21/16 Glimepiride [Amaryl] 4 mg PO BID 10/21/16 Insulin Detemir [Levemir FlexPen] 10 units SC DAILY PRN PRN 10/21/16 Medroxyprogesterone Acetate [Provera] 2.5 mg PO DAILY 10/21/16 Ropinirole HCl [Requip] 1 mg PO QHS PRN 11/16/16 Suvorexant [Belsomra] 20 mg PO QHS PRN 11/16/16 Donepezil HCl [Aricept] 20 mg PO DAILY 01/25/17 Albuterol Aerosols [Ventolin Aerosols] 2.5 mg INHALATION Q2H PRN PRN 01/28/17 modafinil 200 mg tablet 200 mg PO DAILY 15 Days #30 04/01/17 rosuvastatin 40 mg tablet 40 mg PO QHS 28 Days #28 04/01/17 Carvedilol [Coreg (Beta Marielle)] 3.125 mg PO BID 05/18/17 Clopidogrel Bisulfate [Plavix] 75 mg PO DAILY 05/18/17 lisinopril 2.5 mg tablet 2.5 mg PO DAILY #28 tab 05/26/17 Ibuprofen [Motrin] 800 mg PO TID PRN PRN 06/02/17 Isosorbide Mononitrate [Imdur] 30 mg PO DAILY 06/02/17 Teriflunomide [Aubagio] 7 mg PO DAILY 06/02/17 Tizanidine HCl [Zanaflex] 4 mg PO TID 06/02/17 Primary Care Physician: Matthew Noble Chi, MD [Primary Care Provider] - Please follow up with your Primary Care Physician in: 1 Week Please Follow Up With: Elias Butler MD When: As scheduled Disposition: Home with Home Health Minutes spent on discharge:: 35 Patient Condition:: Stable Meaningful Use Info Meaningful Use Diagnoses (Choose all that apply): None applicable
[2017-06-03 10:12] LABS: Hemoglobin A1c 9.7 % (4.2-6.3)
--- NOTE | 2017-06-03 10:35 | CASEMGMT ---
PRAVIN called [facility] and left a message for Renate on the coverage line letting her know patient is being d/c today. PRAVIN called Opal at [facility] and let her know patient is being d/c. PRAVIN also faxed over H&P as well as d/c instructions to [facility]. Rajwinder SANCHEZ MSW
[2017-06-03 11:07] VITALS: PULSE 59
--- NOTE | 2017-06-03 11:25 | CASEMGMT ---
Addendum entered by Rajwinder Benavidez 06/03/17 12:39: Fatuma from home health came to see patient. They are able to take patient. Plan: d/c home with resumption of Pass[employer] services, CCN, and now [facility], PT, and OT. Rajwinder LECHUGA Original Note: SW spoke with patient about home health and she said she would like this. She said she has had [facility] in the past and would like them again if possible. She would like penitentiary, PT, and OT. PRAVIN called Fatuma with [facility] and made the referral. She will call PRAVIN back. PRAVIN had physician sign Medicare Face to Face. Patient will be leaving at 1p today, Fatuma is aware. Rajwinder LECHUGA
[2017-06-03 11:47] LABS: Bedside Glucose 259 mg/dL (70-110)
== END 2017-06-03 13:06 | disposition home or self-care (01) ==
LOC: ED 11:27 → PCU 14:53
PROVIDERS: Admitting Provider Internal Medicine; Emergency Provider Emergency Medicine; Family Provider Family Medicine Geriatric Medicine; PCP Family Medicine Geriatric Medicine; Visit Provider Internal Medicine
DX: R55 Syncope and collapse (principal); I25.10 Atherosclerotic heart disease of native coronary artery without angina pectoris; E11.9 Type 2 diabetes mellitus without complications; I10 Essential (primary) hypertension; J44.9 Chronic obstructive pulmonary disease, unspecified; F41.9 Anxiety disorder, unspecified; F32.9 Major depressive disorder, single episode, unspecified; I48.0 Paroxysmal atrial fibrillation; G47.33 Obstructive sleep apnea (adult) (pediatric); G31.84 Mild cognitive impairment of uncertain or unknown etiology; I25.2 Old myocardial infarction; K58.0 Irritable bowel syndrome with diarrhea; G35 Multiple sclerosis; G89.29 Other chronic pain; D50.9 Iron deficiency anemia, unspecified; F17.210 Nicotine dependence, cigarettes, uncomplicated; I25.5 Ischemic cardiomyopathy; R07.89 Other chest pain; Z79.4 Long term (current) use of insulin; Z79.899 Other long term (current) drug therapy; Z79.82 Long term (current) use of aspirin; Z79.02 Long term (current) use of 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/antiplatelets; Z89.412 Acquired absence of left great toe; Z91.81 History of falling; E78.5 Hyperlipidemia, unspecified; G25.81 Restless legs syndrome; M48.02 Spinal stenosis, cervical region
CPT/HCPCS: 36415; 70450; 71045; 78452; 80048; 80061; 81001; 82962; 83036; 84484; 85025; 93005; 93017; 96361; 96372; 96374; 96375; 96376; 97116; 97162; 97165; 97166; 97530; 99218; 99285; 99406; A9500; J7030; J7040; A4216; G0378; J2405; J2785

== ENCOUNTER 2017-06-03 21:07 | Observation (INO) | payer MEDICARE, MEDICAID, SELFPAY ==
[2016-07-13 11:45] VITALS: BMI 31.4
--- NOTE | 2017-06-02 11:19 | EKG12_ITS ---
Test Reason : Blood Pressure : / mmHG Vent. Rate : 048 BPM Atrial Rate : 048 BPM P-R Int : 162 ms QRS Dur : 102 ms QT Int : 450 ms P-R-T Axes : 032 -38 047 degrees QTc Int : 402 ms Sinus bradycardia Left axis deviation Low voltage QRS Inferior infarct , age undetermined Abnormal ECG Confirmed by ALLAN WITT, DORYS ([id number]), photo editor ANA MEDRANO ([id number]) on 06/05/2017 2:03:25 PM Referred By: PRITI Confirmed By:DORYS LEMUS MD
[2017-06-02 15:18] VITALS: BMI 27.1
[2017-06-03] VITALS (11 sets, daily range): BP systolic 111–167; BP diastolic 59–91; PULSE 61–86; RESP 17–20; TEMP 36.7; O2SAT 95–99; BMI 28.4
--- NOTE | 2017-06-03 21:43 | EKG12_ITS ---
Test Reason : CP Blood Pressure : / mmHG Vent. Rate : 064 BPM Atrial Rate : 064 BPM P-R Int : 150 ms QRS Dur : 094 ms QT Int : 398 ms P-R-T Axes : 028 -54 055 degrees QTc Int : 410 ms Normal sinus rhythm Left axis deviation Low voltage QRS Inferior infarct , age undetermined Anterolateral infarct , age undetermined Abnormal ECG Confirmed by CATHERINE WITT, GRIS ([id number]), editorial specialist ANA MEDRANO ([id number]) on 06/05/2017 2:20:29 PM Referred By: Confirmed By:GRIS ALEXANDER MD
--- NOTE | 2017-06-03 21:50 | RAD_ITS ---
STUDY: X-RAY CHEST REASON FOR EXAM: Female, 61 years old. Chest pain TECHNIQUE: Frontal view of the chest COMPARISON: 06/02/2017 FINDINGS: The lungs are clear. There are no pleural effusions. There is no pneumothorax. The heart is normal in size. Again noted is fusion hardware in the cervical spine. RAD/Chest 1 View (Portable) IMPRESSION: No acute thoracic pathology. Electronically Signed: Juan Hamm, at 22:06 EST Tel , Service support ,
[2017-06-03 21:56] LABS: Absolute Lymphocyte Count 1.44 X10^3/ul (0.83-4.51); Absolute Neutrophil Count 4.8 X10^3/uL (2.0-7.7); Basophil# 0.07 X10^3/uL; Eosinophil# 0.13 X10^3/uL; Eosinophils% 1.9 % (0-5); Hematocrit 36.6 % (37-47); Hemoglobin 11.7 g/dl (12.0-15.0); Lymphocyte # 1.44 X10^3/ul (4.0); Lymphocyte % 20.6 % (19-41); Mean Corpuscular Volume 90.8 fL (81-99); Mean Platelet Vol. 10.8 fl (6.2-12.0); Monocyte# 0.52 X10^3/uL; Monocyte% 7.4 % (0-10); Neutrophil # 4.83 X10^3/uL (2.7-7.7); Platelet Count 265 K/mm3 (150-450); RBC Distribution Width SD 42.8 fl (35.1-43.9); Red Blood Count 4.03 M/mm3 (4.2-5.4)
[2017-06-03 21:59] LABS: POSITIVE COUNT NO; POSITIVE DIFFERENTIAL NO; POSITIVE MORPHOLOGY NO
[2017-06-03 22:17] LABS: Anion Gap 11 (5-15); BUN 15 mg/dL (7-18); BUN/Creat Ratio 20.1 RATIO (10-20); Calcium,Total 9.3 mg/dL (8.5-10.1); Chloride 107 mmol/L (98-107); Creatinine, Serum 0.75 mg/dL (0.55-1.02); EST Glomerular Filtration Rate 83 mL/min (>60); Est Glom Filt Rate - Afr Amer 101 mL/min (>60); Estimated Creatinine Clearance 69.98 ml/min; Glucose 225 mg/dL (74-106); Potassium 3.8 mmol/L (3.5-5.1); Sodium Level 139 mmol/L (136-145)
[2017-06-03] MEDS: Nitroglycerin Oint 1 INCH PACKET TRANSDERM. (23:05)
--- NOTE | 2017-06-03 23:17 | ED.VISSUMM ---
- ER Visit Summary Date of Service: 06/03/17 Chief Complaint: Chest pain History of Present Illness: The patient is a 61 F who woke up 2-1/2 hours prior to arrival/evaluation with central chest pressure radiating down her left upper extremity which is similar to when she had a prior [facility] and PCI/stent. She has been on baby aspirin and Plavix since then. She was just discharged from the hospital today because of orthostatic symptoms and feeling weak. She did not have the symptoms then. The discomfort is not pleuritic and she has had no pain or swelling in either one of her legs or calves lately. No history of DVT/PE. Pain improved with nitroglycerin in route by EMS. Has a history of multiple sclerosis, obstructive sleep apnea, paroxysmal atrial fibrillation, type 2 diabetes, hypertension, hyperlipidemia, coronary artery disease status post PCI, COPD, and had a remote atrial mural thrombus. Physical Examination: Tearful. Otherwise no distress. Other than mild hypertension her vital signs are normal. Chest nontender, heart regular without murmur. No tachycardia. Equal bilateral 2+/4 radial pulses. Lungs clear to auscultation throughout. No splinting on deep inspiration. Abdomen soft nontender nondistended. No calf tenderness or pedal edema. Diffuse scattered ecchymoses of various ages on all 4 extremities. Test Results: Labs reviewed, including negative troponin. EKG shows Q waves inferiorly and throughout the precordium, no acute changes compared to prior. EKG was repeated later, shows no significant changes. No acute injury patterns. Chest x-ray unremarkable. Emergency Department Course and Treatment: Improved with nitroglycerin, and given a dose of morphine. Given nitroglycerin paste. Blood pressure remained stable in the emergency department. Discussed with hospitalist for PCU admission for further evaluation and testing. Treatment Plan: Admit PCU/telemetry Disposition: Admit Impression: Chest pain, unspecified Coronary artery disease history This note was generated with [employer] dictation software. It may contain incorrect words, spelling, and punctuation that were not noted in review of the chart prior to signing ED Disposition - Plan for ED Patient: Disposition: Acute Care Hospital [facility] Chief Complaint: Chest Pain Referrals: Matthew Noble Chi, MD [Primary Care Provider] -
--- NOTE | 2017-06-03 23:21 | ED.DCSUM_ITS ---
- ER Visit Summary Date of Service: 06/03/17 Chief Complaint: Chest pain History of Present Illness: The patient is a 61 F who woke up 2-1/2 hours prior to arrival/evaluation with central chest pressure radiating down her left upper extremity which is similar to when she had a prior [place] and PCI/stent. She has been on baby aspirin and Plavix since then. She was just discharged from the hospital today because of orthostatic symptoms and feeling weak. She did not have the symptoms then. The discomfort is not pleuritic and she has had no pain or swelling in either one of her legs or calves lately. No history of DVT/ PE. Pain improved with nitroglycerin in route by EMS. Has a history of multiple sclerosis, obstructive sleep apnea, paroxysmal atrial fibrillation, type 2 diabetes, hypertension, hyperlipidemia, coronary artery disease status post PCI, COPD, and had a remote atrial mural thrombus. Physical Examination: Tearful. Otherwise no distress. Other than mild hypertension her vital signs are normal. Chest nontender, heart regular without murmur. No tachycardia. Equal bilateral 2+/4 radial pulses. Lungs clear to auscultation throughout. No splinting on deep inspiration. Abdomen soft nontender nondistended. No calf tenderness or pedal edema. Diffuse scattered ecchymoses of various ages on all 4 extremities. Test Results: Labs reviewed, including negative troponin. EKG shows Q waves inferiorly and throughout the precordium, no acute changes compared to prior. EKG was repeated later, shows no significant changes. No acute injury patterns. Chest x-ray unremarkable. Emergency Department Course and Treatment: Improved with nitroglycerin, and given a dose of morphine. Given nitroglycerin paste. Blood pressure remained stable in the emergency department. Discussed with hospitalist for PCU admission for further evaluation and testing. Treatment Plan: Admit PCU/telemetry Disposition: Admit Impression: Chest pain, unspecified Coronary artery disease history This note was generated with [employer] dictation software. It may contain incorrect words, spelling, and punctuation that were not noted in review of the chart prior to signing ED Disposition - Plan for ED Patient: Disposition: Acute Care Hospital [facility] Chief Complaint: Chest Pain Referrals: Matthew Noble Chi, MD [Primary Care Provider] -
[2017-06-04] VITALS (17 sets, daily range): BP systolic 112–166; BP diastolic 64–81; PULSE 55–67; RESP 16–18; TEMP 35.5–36.8; O2SAT 95–100; BMI 26.7
--- NOTE | 2017-06-04 00:05 | PCM.HP.STD ---
Problem List (1) Chest pain Status: Acute (2) BRYAN (obstructive sleep apnea) Status: Chronic (3) Ischemic cardiomyopathy Status: Chronic (4) Diabetes mellitus type 2 in nonobese Status: Chronic (5) Multiple sclerosis, relapsing-remitting Status: Chronic (6) COPD (chronic obstructive pulmonary disease) Status: Chronic Qualifiers: (7) HTN (hypertension) Status: Chronic Qualifiers: (8) Hyperlipemia Status: Chronic Qualifiers: (9) Cervical spinal stenosis Status: Chronic (10) Depression Status: Chronic Qualifiers: (11) Irritable bowel syndrome with diarrhea Status: Chronic (12) Vitamin B12 deficiency Status: Chronic (13) Restless leg syndrome Status: Chronic (14) CAD (coronary artery disease) Status: Chronic Qualifiers: (15) Anxiety Status: Chronic (16) Tobacco abuse Status: Chronic (17) PAF (paroxysmal atrial fibrillation) Status: Chronic (18) Radiculitis, thoracic Status: Chronic Comment: improved with increase in the Gabapentin History of Present Illness Date of Admission: 06/03/17 Chief Complaint: chest pain The patient is a 61 year old F was just discharged on the seventh with syncope. Syncope was felt to be related with hypotension and bradycardia and possibly dehydration. Patient was discharged to home and while at home patient awoke with left-sided chest pain radiating down her left arm. Similar to when she has had heart attacks before. Workup in the emergency room was unremarkable. In the emergency room, patient received morphine and, nitroglycerin sublingual and patch. Patient feels better but still is having chest pain. [] Past Medical History Past Medical History (Chronic Problems): Chronic Problems (Last Reviewed 04/23/17 @ 11:15 by Sima Rocha) History of coronary artery stent placement (Chronic) BRYAN (obstructive sleep apnea) (Chronic) Ischemic cardiomyopathy (Chronic) Frequent falls (Chronic) Diabetes mellitus type 2 in nonobese (Chronic) Apical mural thrombus with acute SD (Chronic) Multiple sclerosis, relapsing-remitting (Chronic) COPD (chronic obstructive pulmonary disease) (Chronic) HTN (hypertension) (Chronic) Hyperlipemia (Chronic) Cervical spinal stenosis (Chronic) Depression (Chronic) Irritable bowel syndrome with diarrhea (Chronic) Vitamin B12 deficiency (Chronic) Menopausal disorder (Chronic) Hypomagnesemia (Chronic) Restless leg syndrome (Chronic) CAD (coronary artery disease) (Chronic) Anxiety (Chronic) Tobacco abuse (Chronic) Iron deficiency (Chronic) PAF (paroxysmal atrial fibrillation) (Chronic) Radiculitis, thoracic (Chronic) improved with increase in the Gabapentin Allergies indomethacin [From Indocin] Allergy (Verified 06/03/17 21:13) Hives indomethacin sodium [From Indocin] Allergy (Verified 06/03/17 21:13) Hives iodine Allergy (Verified 06/03/17 21:13) Hives propoxyphene napsylate [From Darvocet-N] Allergy (Verified 06/03/17 21:13) Out of control aspirin Adverse Reaction (Verified 06/03/17 21:13) Upset Stomach when taken in high doses clindamycin Adverse Reaction (Verified 06/03/17 21:13) Nausea sumatriptan [From Imitrex] Adverse Reaction (Verified 06/03/17 21:13) Vomiting Home Medications: Ambulatory Orders Medication Instructions Recorded Aspirin E.C. [Ecotrin] 81 mg PO DAILY@0800 10/21/16 Bupropion HCl [Wellbutrin Sr] 200 mg PO BID 10/21/16 Citalopram [Celexa] 30 mg PO DAILY 10/21/16 Eluxadoline [Viberzi] 75 mg PO BID 10/21/16 Estradiol [Estrace (G)] 1 mg PO DAILY 10/21/16 Glimepiride [Amaryl] 4 mg PO BID 10/21/16 Insulin Detemir [Levemir FlexPen] 10 units SC DAILY PRN PRN 10/21/16 Medroxyprogesterone Acetate 2.5 mg PO DAILY 10/21/16 [Provera] Ropinirole HCl [Requip] 1 mg PO QHS PRN 11/16/16 Suvorexant [Belsomra] 20 mg PO QHS PRN 11/16/16 Donepezil HCl [Aricept] 20 mg PO DAILY 01/25/17 Albuterol Aerosols [Ventolin 2.5 mg INHALATION Q2H PRN PRN 01/28/17 Aerosols] modafinil 200 mg tablet 200 mg PO DAILY 15 Days #30 04/01/17 rosuvastatin 40 mg tablet 40 mg PO QHS 28 Days #28 04/01/17 Carvedilol [Coreg (Beta Marielle)] 3.125 mg PO BID 05/18/17 Clopidogrel Bisulfate [Plavix] 75 mg PO DAILY 05/18/17 lisinopril 2.5 mg tablet 2.5 mg PO DAILY #28 tab 05/26/17 Ibuprofen [Motrin] 800 mg PO TID PRN PRN 06/02/17 Isosorbide Mononitrate [Imdur] 30 mg PO DAILY 06/02/17 Teriflunomide [Aubagio] 7 mg PO DAILY 06/02/17 Tizanidine HCl [Zanaflex] 4 mg PO TID 06/02/17 Surgical History: adenoidectomy, tonsillectomy, - - L foot great toe ampuation, Back surgery x 3, L carpal tunnel surgery x 2, R carpal tunnel surgery x 1, R thumb reconstructive surgery. cervical spinal surgery february 27 at [facility]. Psychiatric History: Anxiety, Depression, - - Mild cognitive impairment [employer] History: - - Menopausal syndrome. Smoking Status: Former smoker - *Family History Maternal History Items: Cancer - mother pancreatic ca Paternal History Items: Cancer - father lung ca., - - Lung cancer Review of Systems Constitutional: Denies: Chills, Fever, Weight Change Eyes: Denies: Blurred vision, Double vision HEENT: Denies: Head Aches, Sinus Congestion, Sinus Drainage Cardiovascular: Reports: Chest Pain. Denies: Edema Respiratory: Denies: Cough, Shortness of breath at rest, Sputum production Gastrointestinal: Reports: Diarrhea - Chronic related with irritable bowel syndrome. Denies: Abdominal Pain, Nausea, Vomiting Genitourinary: Denies: Dysuria Musculoskeletal: Denies: Joint Pain, Joint Tenderness Skin: Reports: - - Bruising from falls Neurological: Reports: Balance problems. Denies: Blurred vision, Double vision Psychiatric: Denies: Anxiety, Depression Hematologic/ Lymphatic: Reports: Easy Bruising, Hx of blood clot - History of apical thrombus VTE Information - Inpt Only VTE Present on Admission: No VTE Pharm Prophylaxis ordered?: Yes Patient Problems: Active and Suspected Problems (Last Reviewed 04/23/17 @ 11:15 by Sima Rocha) Chest pain (Acute) - Physical Exam General: Alert, Cooperative, No apparent distress HEENT: Atraumatic, Normocephalic Neck: No Nodes, Thyroid Normal Size and Texture Lungs: Clear to auscultation, Normal air movement, No rhonchi, No wheeze Cardiovascular: Regular rate, Regular Rhythm, Normal S1, Normal S2, No murmurs Abdomen: Bowel Sounds Present, Soft, Non Tender, Non-Distended, No Hepato-splenomegaly, Passing Flatus Extremities: No edema, No Calf Tenderness Skin: No rashes, No breakdown Musculoskeletal: Cachexia, Muscle Wasting Psych/Mental Status: Normal Affect, Appropriate Vital Signs Temp Pulse Resp BP Pulse Ox 36.7 C 77 18 145/78 H 95 06/03/17 21:08 06/03/17 23:06 06/03/17 23:06 06/03/17 23:06 06/03/17 23:06 Oxygen Delivery Method Room Air Weight: 77.6 kg Body Mass Index (BMI) 28.4 Finger Stick Blood Glucose 309 Laboratory Tests Past 24 Hrs 06/03/17 06/03/17 21:10 21:10 WBC 7.0 RBC 4.03 L Hgb 11.7 L Hct 36.6 L MCV 90.8 MCH 29.0 MCHC 32.0 RDW 13.0 RDW Differential 42.8 Plt Count 265 MPV 10.8 Immature Gran % (Auto) 0.100 Neut % (Auto) 69.0 Lymph % (Auto) 20.6 [place] % (Auto) 7.4 Eos % (Auto) 1.9 Baso % (Auto) 1.0 Absolute Neuts (auto) 4.8 Absolute Lymphs (auto) 1.44 Total Counted Not Reportable Sodium 139 Potassium 3.8 Chloride 107 Carbon Dioxide 21.0 Anion Gap 11 BUN 15 Creatinine 0.75 Estim Creat Clear Calc 69.98 Est GFR (MDRD) Af Amer 101 Est GFR (MDRD) Non-Af 83 BUN/Creatinine Ratio 20.1 H Glucose 225 H Calcium 9.3 Troponin I < 0.02 EKG reviewed and showed normal sinus rhythm without any acute changes. Clinical Impression(s) from Imaging Studies Chest X-Ray 06/03/17 21:50 IMPRESSION: No acute thoracic pathology. Electronically Signed: Juan Hamm, at 22:06 EST Tel , Service support , Assessment/Plan Active and Suspected Problems (Last Reviewed 04/23/17 @ 11:15 by Sima Rocha) Chest pain (Acute) 1. Chest pain Patient with known coronary artery disease with stents dating back to March 2016. Continue with her home medications, which include aspirin and Plavix. Cycle troponins And check a chemical stress test. Patient's most recent stress test was from October of this year. I will discontinue the patient's hormone treatment as well. Though do not feel it is causing her chest pain certainly would be contraindicated anyways and coronary artery disease. 2. Syncope No new events from her discharge on the . Per the documentation of salt related with hypotension, bradycardia and dehydration. I would also be concerned about the polypharmacy as well and I discussed this with the patient and have recommended changes. Dropping her modafinil. 3. DVT prophylaxis with Lovenox 4. Multiple sclerosis, hypertension, generalized debility: All complicating the patient's overall care. This note was dictated on June 04 but the patient was seen and examined on June 03 and the billing will reflect the time of her evaluation. Code Visit OBSV E&M: 57469 Initial observation care L2
--- NOTE | 2017-06-04 00:15 | HP.PCM_ITS ---
Problem List (1) Chest pain Status: Acute (2) BRYAN (obstructive sleep apnea) Status: Chronic (3) Ischemic cardiomyopathy Status: Chronic (4) Diabetes mellitus type 2 in nonobese Status: Chronic (5) Multiple sclerosis, relapsing-remitting Status: Chronic (6) COPD (chronic obstructive pulmonary disease) Status: Chronic Qualifiers: (7) HTN (hypertension) Status: Chronic Qualifiers: (8) Hyperlipemia Status: Chronic Qualifiers: (9) Cervical spinal stenosis Status: Chronic (10) Depression Status: Chronic Qualifiers: (11) Irritable bowel syndrome with diarrhea Status: Chronic (12) Vitamin B12 deficiency Status: Chronic (13) Restless leg syndrome Status: Chronic (14) CAD (coronary artery disease) Status: Chronic Qualifiers: (15) Anxiety Status: Chronic (16) Tobacco abuse Status: Chronic (17) PAF (paroxysmal atrial fibrillation) Status: Chronic (18) Radiculitis, thoracic Status: Chronic Comment: improved with increase in the Gabapentin History of Present Illness Date of Admission: 06/03/17 Chief Complaint: chest pain The patient is a 61 year old F was just discharged on the seventh with syncope. Syncope was felt to be related with hypotension and bradycardia and possibly dehydration. Patient was discharged to home and while at home patient awoke with left-sided chest pain radiating down her left arm. Similar to when she has had heart attacks before. Workup in the emergency room was unremarkable. In the emergency room, patient received morphine and, nitroglycerin sublingual and patch. Patient feels better but still is having chest pain. [] Past Medical History Past Medical History (Chronic Problems): Chronic Problems (Last Reviewed 04/23/17 @ 11:15 by Sima Rocha) History of coronary artery stent placement (Chronic) BRYAN (obstructive sleep apnea) (Chronic) Ischemic cardiomyopathy (Chronic) Frequent falls (Chronic) Diabetes mellitus type 2 in nonobese (Chronic) Apical mural thrombus with acute [place] (Chronic) Multiple sclerosis, relapsing-remitting (Chronic) COPD (chronic obstructive pulmonary disease) (Chronic) HTN (hypertension) (Chronic) Hyperlipemia (Chronic) Cervical spinal stenosis (Chronic) Depression (Chronic) Irritable bowel syndrome with diarrhea (Chronic) Vitamin B12 deficiency (Chronic) Menopausal disorder (Chronic) Hypomagnesemia (Chronic) Restless leg syndrome (Chronic) CAD (coronary artery disease) (Chronic) Anxiety (Chronic) Tobacco abuse (Chronic) Iron deficiency (Chronic) PAF (paroxysmal atrial fibrillation) (Chronic) Radiculitis, thoracic (Chronic) improved with increase in the Gabapentin Allergies indomethacin [From Indocin] Allergy (Verified 06/03/17 21:13) Hives indomethacin sodium [From Indocin] Allergy (Verified 06/03/17 21:13) Hives iodine Allergy (Verified 06/03/17 21:13) Hives propoxyphene napsylate [From Darvocet-N] Allergy (Verified 06/03/17 21:13) Out of control aspirin Adverse Reaction (Verified 06/03/17 21:13) Upset Stomach when taken in high doses clindamycin Adverse Reaction (Verified 06/03/17 21:13) Nausea sumatriptan [From Imitrex] Adverse Reaction (Verified 06/03/17 21:13) Vomiting Home Medications: Ambulatory Orders Medication Instructions Recorded Aspirin E.C. [Ecotrin] 81 mg PO DAILY@0800 10/21/16 Bupropion HCl [Wellbutrin Sr] 200 mg PO BID 10/21/16 Citalopram [Celexa] 30 mg PO DAILY 10/21/16 Eluxadoline [Viberzi] 75 mg PO BID 10/21/16 Estradiol [Estrace (G)] 1 mg PO DAILY 10/21/16 Glimepiride [Amaryl] 4 mg PO BID 10/21/16 Insulin Detemir [Levemir FlexPen] 10 units SC DAILY PRN PRN 10/21/16 Medroxyprogesterone Acetate 2.5 mg PO DAILY 10/21/16 [Provera] Ropinirole HCl [Requip] 1 mg PO QHS PRN 11/16/16 Suvorexant [Belsomra] 20 mg PO QHS PRN 11/16/16 Donepezil HCl [Aricept] 20 mg PO DAILY 01/25/17 Albuterol Aerosols [Ventolin 2.5 mg INHALATION Q2H PRN PRN 01/28/17 Aerosols] modafinil 200 mg tablet 200 mg PO DAILY 15 Days #30 04/01/17 rosuvastatin 40 mg tablet 40 mg PO QHS 28 Days #28 04/01/17 Carvedilol [Coreg (Beta Marielle)] 3.125 mg PO BID 05/18/17 Clopidogrel Bisulfate [Plavix] 75 mg PO DAILY 05/18/17 lisinopril 2.5 mg tablet 2.5 mg PO DAILY #28 tab 05/26/17 Ibuprofen [Motrin] 800 mg PO TID PRN PRN 06/02/17 Isosorbide Mononitrate [Imdur] 30 mg PO DAILY 06/02/17 Teriflunomide [Aubagio] 7 mg PO DAILY 06/02/17 Tizanidine HCl [Zanaflex] 4 mg PO TID 06/02/17 Surgical History: adenoidectomy, tonsillectomy, - - L foot great toe ampuation, Back surgery x 3, L carpal tunnel surgery x 2, R carpal tunnel surgery x 1, R thumb reconstructive surgery. cervical spinal surgery february 27 at [facility]. 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 Smoking Status: Former smoker - *Family History Maternal History Items: Cancer - mother pancreatic ca Paternal History Items: Cancer - father lung ca., - - Lung cancer Review of Systems Constitutional: Denies: Chills, Fever, Weight Change Eyes: Denies: Blurred vision, Double vision HEENT: Denies: Head Aches, Sinus Congestion, Sinus Drainage Cardiovascular: Reports: Chest Pain. Denies: Edema Respiratory: Denies: Cough, Shortness of breath at rest, Sputum production Gastrointestinal: Reports: Diarrhea - Chronic related with irritable bowel syndrome. Denies: Abdominal Pain, Nausea, Vomiting Genitourinary: Denies: Dysuria Musculoskeletal: Denies: Joint Pain, Joint Tenderness Skin: Reports: - - Bruising from falls Neurological: Reports: Balance problems. Denies: Blurred vision, Double vision Psychiatric: Denies: Anxiety, Depression Hematologic/ Lymphatic: Reports: Easy Bruising, Hx of blood clot - History of apical thrombus VTE Information - Inpt Only VTE Present on Admission: No VTE Pharm Prophylaxis ordered?: Yes Patient Problems: Active and Suspected Problems (Last Reviewed 04/23/17 @ 11:15 by Sima Rocha ) Chest pain (Acute) - Physical Exam General: Alert, Cooperative, No apparent distress HEENT: Atraumatic, Normocephalic Neck: No Nodes, Thyroid Normal Size and Texture Lungs: Clear to auscultation, Normal air movement, No rhonchi, No wheeze Cardiovascular: Regular rate, Regular Rhythm, Normal S1, Normal S2, No murmurs Abdomen: Bowel Sounds Present, Soft, Non Tender, Non-Distended, No Hepato- splenomegaly, Passing Flatus Extremities: No edema, No Calf Tenderness Skin: No rashes, No breakdown Musculoskeletal: Cachexia, Muscle Wasting Psych/Mental Status: Normal Affect, Appropriate Vital Signs Temp Pulse Resp BP Pulse Ox 36.7 C 77 18 145/78 H 95 06/03/17 21:08 06/03/17 23:06 06/03/17 23:06 06/03/17 23:06 06/03/17 23:06 Oxygen Delivery Method Room Air Weight: 77.6 kg Body Mass Index (BMI) 28.4 Finger Stick Blood Glucose 309 Laboratory Tests Past 24 Hrs 06/03/17 06/03/17 21:10 21:10 WBC 7.0 RBC 4.03 L Hgb 11.7 L Hct 36.6 L MCV 90.8 MCH 29.0 MCHC 32.0 RDW 13.0 RDW Differential 42.8 Plt Count 265 MPV 10.8 Immature Gran % (Auto) 0.100 Neut % (Auto) 69.0 Lymph % (Auto) 20.6 [place] % (Auto) 7.4 Eos % (Auto) 1.9 Baso % (Auto) 1.0 Absolute Neuts (auto) 4.8 Absolute Lymphs (auto) 1.44 Total Counted Not Reportable Sodium 139 Potassium 3.8 Chloride 107 Carbon Dioxide 21.0 Anion Gap 11 BUN 15 Creatinine 0.75 Estim Creat Clear Calc 69.98 Est GFR (MDRD) Af Amer 101 Est GFR (MDRD) Non-Af 83 BUN/Creatinine Ratio 20.1 H Glucose 225 H Calcium 9.3 Troponin I < 0.02 EKG reviewed and showed normal sinus rhythm without any acute changes. Clinical Impression(s) from Imaging Studies Chest X-Ray 06/03/17 21:50 IMPRESSION: No acute thoracic pathology. Electronically Signed: Juan Hamm, at 22:06 EST Tel , Service support , Assessment/Plan Active and Suspected Problems (Last Reviewed 04/23/17 @ 11:15 by Sima Rocha ) Chest pain (Acute) 1. Chest pain * Patient with known coronary artery disease with stents dating back to March 2016. * Continue with her home medications, which include aspirin and Plavix. * Cycle troponins * And check a chemical stress test. Patient's most recent stress test was from October of this year. * I will discontinue the patient's hormone treatment as well. Though do not feel it is causing her chest pain certainly would be contraindicated anyways and coronary artery disease. 2. Syncope * No new events from her discharge on the . * Per the documentation of salt related with hypotension, bradycardia and dehydration. * I would also be concerned about the polypharmacy as well and I discussed this with the patient and have recommended changes. Dropping her modafinil. 3. DVT prophylaxis with Lovenox 4. Multiple sclerosis, hypertension, generalized debility: All complicating the patient's overall care. This note was dictated on June 04 but the patient was seen and examined on June 03 and the billing will reflect the time of her evaluation. Code Visit OBSV E&M: 31127 Initial observation care L2
--- NOTE | 2017-06-04 04:23 | EKG12_ITS ---
Test Reason : CP Blood Pressure : / mmHG Vent. Rate : 057 BPM Atrial Rate : 057 BPM P-R Int : 150 ms QRS Dur : 098 ms QT Int : 434 ms P-R-T Axes : 041 -57 076 degrees QTc Int : 422 ms Sinus bradycardia Low voltage QRS Left anterior fascicular block Inferior infarct , age undetermined Abnormal ECG When compared with ECG of 03-JUN-2017 21:47, MANUAL COMPARISON REQUIRED, DATA IS UNCONFIRMED Confirmed by ALLAN WITT, DORYS ([id number]), book or script editor ANA MEDRANO ([id number]) on 06/11/2017 1:10:18 PM Referred By: DR RUDOLPH Confirmed By:DORYS LEMUS MD
[2017-06-04 04:45] LABS: Cholesterol 116 mg/dL (200); High Density Lipoprotein 65 mg/dL; Triglycerides 109 mg/dL; Very Low Density Lipoprotein 22 mg/dL (5-40)
[2017-06-04] MEDS: Acetaminophen 325 MG Tablet 650 MG PO ×3 (05:10→17:24)
--- NOTE | 2017-06-04 05:23 | NURSING ---
Patient c/o of chest pain this shift. pain 8/10. 2 nitro given without releif, EKG done w/o changes, normal sinus rhythm. x3 Troponin negative. Dr. Moreland paged and updated on patient status, no new orders. Patient still painful and crying. This nurse sat at [facility]'s bedside and asked if there is anything going on that is upsetting patient, asked if things at home are okay? Patient c/o of chronic neck pain from a recent surgery and painful headaches that she has dealt with for a long time. Patient said she is unable to get pain medication from her pain management because of noncompliance at this time. This is very frustrating to patient. Patient stated the only time she can get pain medicine is when admitted to the hospital. Patient c/o of not being able to get around very well at home by herself and that she does not have any kind of support system at home. This nurse told patient that PT/OT would be consulted and that if she wanted Casemanagement would as well. Patient c/o of headache towards the end of the conversation and this nurse told patient she could only have tylenol. Patient became frustrated and started crying again. Patient accepted tylenol for pain and this nurse left the room.
[2017-06-04 07:22] LABS: Bedside Glucose 191 mg/dL (70-110)
[2017-06-04] MEDS: Lisinopril 2.5 MG Tablet PO ×2 (08:03→14:17)
[2017-06-04] MEDS: oxyCODONE 5 MG Tablet PO ×3 (08:40→20:33)
--- NOTE | 2017-06-04 11:21 | NURSING ---
off unit 0900 for stress test, returned to unit 1100
[2017-06-04] MEDS: tiZANidine HCl 2 MG Tablet 4 MG PO (11:39)
[2017-06-04] MEDS: Carvedilol 3.125 MG TABLET PO (11:40)
[2017-06-04] MEDS: Donepezil HCl 10 MG Tablet 20 MG PO (11:40)
[2017-06-04] MEDS: Isosorbide Mononitrate 30 MG Tablet PO (11:40)
[2017-06-04] MEDS: Citalopram 10 MG Tablet 30 MG PO (11:40)
[2017-06-04] MEDS: Glimepiride 4 MG Tablet PO ×2 (11:40→16:12)
[2017-06-04 11:56] LABS: Bedside Glucose 210 mg/dL (70-110)
--- NOTE | 2017-06-04 12:47 | STRESSREP ---
Stress Test Report Date: 06/04/2017 Procedure: Pharmacologic stress nuclear imaging study Indications: Chest pain status post PCI Consent: Per the patient The patient underwent pharmacologic (Regadenoson) evaluation with a peak heart rate of 133 bpm (84% predicted maximal heart rate) with a peak blood pressure 160/80 mmHg. The baseline ECG demonstrated underlying sinus bradycardia with poor R-wave progression with anterolateral IL pattern of indeterminate age cannot be excluded with nonspecific ST and T-wave abnormality. The peak pharmacologic ECG demonstrated no obvious ECG changes. There were no cardiac dysrhythmias pretest, during pharmacologic infusion, or recovery. There was no report of chest discomfort during pharmacologic infusion or recovery. The examination was discontinued secondary to completion of protocol. Impression: 1. Pharmacologic (Regadenoson) evaluation 2. Peak pharmacologic ECG with no obvious ECG changes compared to baseline 3. Nuclear images pending Myocardial perfusion imaging study: Technique: The patient was injected with 12.0 mCi of technetium 99m Cardiolite and subsequently rest SPECT cardio light nuclear imaging was obtained in the horizontal long, vertical long, and short axis views. The patient underwent pharmacologic (Regadenoson) evaluation with a peak heart rate of 133 bpm (84% predicted maximal heart rate) with a peak blood pressure 160/80 mmHg patient was injected with 31.4 mCi of technetium 99m Cardiolite and subsequently stress SPECT Cardiolite nuclear imaging was obtained in the horizontal long, vertical long, and short axis views. A gated Cardiolite study at peak stress was obtained. Interpretation: Rest and stress SPECT Cardiolite nuclear imaging status post realignment, normalization, and attenuation correction, demonstrates the appearance of diminished absence of myocardial perfusion/tracer uptake in portions of the distal anterior, distal lateral, distal inferior, distal septal segments, as well as the apical segments. There are similar type findings on the resting and stress polar map images. There is diminished end systolic thickening and brightening in the aforementioned areas and the gated Cardiolite study demonstrates diminished myocardial thickening and inward wall motion in the aforementioned areas. The reported LVEF is 54%. Impression: 1. Rest and stress SPECT Cardiolite nuclear imaging demonstrate myocardial perfusion changes appearing compatible with an area of previous myocardial injury/infarction involving portions of the distal anterior, distal lateral, distal inferior, and distal septal segments as well as the apical segments. 2. There are no myocardial perfusion changes consider diagnostic for associated stress-induced myocardial ischemia. 3. The gated Cardiolite study reports an LVEF of 54%. This note was generated with [employer] software. It may contain incorrect words, spelling, and punctuation that were not noted in checking the note before signing.
--- NOTE | 2017-06-04 12:57 | STRESSREP_ITS ---
Stress Test Report Date: 06/04/2017 Procedure: Pharmacologic stress nuclear imaging study Indications: Chest pain status post PCI Consent: Per the patient The patient underwent pharmacologic (Regadenoson) evaluation with a peak heart rate of 133 bpm (84% predicted maximal heart rate) with a peak blood pressure 160/80 mmHg. The baseline ECG demonstrated underlying sinus bradycardia with poor R-wave progression with anterolateral AL pattern of indeterminate age cannot be excluded with nonspecific ST and T-wave abnormality. The peak pharmacologic ECG demonstrated no obvious ECG changes. There were no cardiac dysrhythmias pretest, during pharmacologic infusion, or recovery. There was no report of chest discomfort during pharmacologic infusion or recovery. The examination was discontinued secondary to completion of protocol. Impression: 1. Pharmacologic (Regadenoson) evaluation 2. Peak pharmacologic ECG with no obvious ECG changes compared to baseline 3. Nuclear images pending Myocardial perfusion imaging study: Technique: The patient was injected with 12.0 mCi of technetium 99m Cardiolite and subsequently rest SPECT cardio light nuclear imaging was obtained in the horizontal long, vertical long, and short axis views. The patient underwent pharmacologic (Regadenoson) evaluation with a peak heart rate of 133 bpm (84% predicted maximal heart rate) with a peak blood pressure 160/80 mmHg patient was injected with 31.4 mCi of technetium 99m Cardiolite and subsequently stress SPECT Cardiolite nuclear imaging was obtained in the horizontal long, vertical long, and short axis views. A gated Cardiolite study at peak stress was obtained. Interpretation: Rest and stress SPECT Cardiolite nuclear imaging status post realignment, normalization, and attenuation correction, demonstrates the appearance of diminished absence of myocardial perfusion/tracer uptake in portions of the distal anterior, distal lateral, distal inferior, distal septal segments, as well as the apical segments. There are similar type findings on the resting and stress polar map images. There is diminished end systolic thickening and brightening in the aforementioned areas and the gated Cardiolite study demonstrates diminished myocardial thickening and inward wall motion in the aforementioned areas. The reported LVEF is 54%. Impression: 1. Rest and stress SPECT Cardiolite nuclear imaging demonstrate myocardial perfusion changes appearing compatible with an area of previous myocardial injury/infarction involving portions of the distal anterior, distal lateral, distal inferior, and distal septal segments as well as the apical segments. 2. There are no myocardial perfusion changes consider diagnostic for associated stress-induced myocardial ischemia. 3. The gated Cardiolite study reports an LVEF of 54%. This note was generated with [employer] software. It may contain incorrect words, spelling, and punctuation that were not noted in checking the note before signing.
--- NOTE | 2017-06-04 13:23 | PN_ITS ---
<Edenilson Fields - Last Filed: 06/04/17 13:14> Patient Problems: Active and Suspected Problems (Last Reviewed 04/23/17 @ 11:15 by Sima Rocha ) Chest pain (Acute) Syncope (Acute) Debility (Acute) Subjective: No further CP this AM, . Had some nausea this AM during the stress test however feeling better now. Only complaint currently is left sided behind the eye headache. - Physical Exam General: Alert, Oriented x3, Cooperative HEENT: Atraumatic, PERRLA, EOMI, Normocephalic Neck: Supple, No JVD, Negative Carotid Bruits Lungs: Clear to auscultation, Normal air movement Cardiovascular: Regular rate, No murmurs Abdomen: Bowel Sounds Present, Soft, Non Tender Extremities: No edema, Capillary Refill Less than 3 Seconds Skin: No rashes, No breakdown Musculoskeletal: No Tenderness to Palpation of Joints or Extremities Neurological: Cranial nerves II-XII grossly intact Psych/Mental Status: Normal Affect, Appropriate, Alert and oriented to time, place, person, mood and affect Vital Signs Temp Pulse Resp BP Pulse Ox 97.9 F 63 16 166/78 H 100 06/04/17 08:22 06/04/17 08:22 06/04/17 08:22 06/04/17 08:22 06/04/17 08:22 Oxygen Delivery Method Room Air Weight: 72.9 kg Body Mass Index (BMI) 26.7 Laboratory Tests Past 24 Hrs 06/04/17 06/04/17 01:40 04:10 Troponin I 0.02 < 0.02 Triglycerides 109 Cholesterol 116 LDL Cholesterol 29 VLDL Cholesterol 22 HDL Cholesterol 65 POC Glucose 06/04/17 06/04/17 11:31 07:14 POC Glucose 210 H 191 H Assessment/Plan Active and Suspected Problems (Last Reviewed 04/23/17 @ 11:15 by Sima Rocha ) Chest pain (Acute) Syncope (Acute) Debility (Acute) 1. Chest pain - negative stress. Negative troponin x 3. No further CP. She does have a history of CAD, stents, continue aspirin, Lipitor, Coreg, Plavix, lisinopril, and/or 2. Recent syncope - was attributed to hypotension, bradycardia, dehydration. Modafanil was discontinued. 3. HTN - recent medication changes, at this time I will slightly increase her lisinopril and trend. 4. Generalized debility - complicated by MS. pt is doing poorly at home and interested in placement, which we are arranging. PTOT. 5. Hx MS 6. Type 2 diabetes-continue current regimen 7. COPD-no pulmonary complaints. 8. Anxiety/depression on citalopram, bupropion - at home also on viberzi, belsomra DVT ppx: lovenox DC planning: Placement. This patient was seen by Edenilson Fields PA-C under the supervision of Doctor Mccrary. <Michelle Mccrary - Last Filed: 06/04/17 14:06> - Physical Exam Vital Signs Temp Pulse Resp BP Pulse Ox 97.6 F L 67 16 140/72 H 97 06/04/17 12:00 06/04/17 12:00 06/04/17 12:00 06/04/17 12:00 06/04/17 12:00 Oxygen Delivery Method Room Air Weight: 72.9 kg Body Mass Index (BMI) 26.7 Laboratory Tests Past 24 Hrs 06/04/17 06/04/17 01:40 04:10 Troponin I 0.02 < 0.02 Triglycerides 109 Cholesterol 116 LDL Cholesterol 29 VLDL Cholesterol 22 HDL Cholesterol 65 POC Glucose 06/04/17 06/04/17 11:31 07:14 POC Glucose 210 H 191 H Assessment/Plan This patient was seen in conjunction with JOHN Donald. I have independently interviewed and examined the patient and reviewed pertinent historical, laboratory, and other data. Please refer to his note for details of this patient's presentation, findings, and recommendations. I have reviewed his note and concur with documentation as above. This patient was admitted and discharged yesterday with syncope and bradycardia which seemed to have resolved. Orthostatic vitals before discharge with negative, patient was walked by the nursing staff and physical therapy. Patient was no longer bradycardic- heart rate remained in the 60s. Medication changes were made by the admitting doctor. Patient's is been very insistent on pain medication, suspect readmission is related to pain medication as she is yet to establish with pain medications. Given this patient's recurrent admissions at least once every month, it sounds to me that patient is unable to take care of herself at home, the syncope episodes are not witnessed by reported by the patient, suspect patient's readmissions may be related to pain medications, will discuss with care managers and social workers on getting patient to go into short-term rehab and may be finally into assisted living facility where she could get help when she needs. The chest pain that she had complained of this morning had no change in the EKG , troponins ?3 have been negative, stress tests has also been negative. Code Visit Inpatient E&M: 46580 Subs Hosp L2
--- NOTE | 2017-06-04 13:23 | PCM.TXEXTCAR ---
- Diet 06/04/17 00:02 Diet: Cardiac/Low Cholesterol Food consistency:: Regular Liquid Consistency:: Regular/Thin - Routine Orders/Code Status Suppository Type: Dulcolax 10mg Suppository Frequency: Daily PRN Routine Lab Work: CBC - 3 days, BMP - 3 days Code Status: Full Code - Wound(s) left lower leg Wound Type: Scabbed area - Therapies Physical Therapy: Eval and Treat Occupational Therapy: Eval and Treat - Problem/Diagnosis (1) Chest pain Status: Acute Current Visit: Yes (2) Syncope Status: Acute Current Visit: Yes (3) BRYAN (obstructive sleep apnea) Status: Chronic Current Visit: No (4) Diabetes mellitus type 2 in nonobese Status: Chronic Current Visit: No (5) Multiple sclerosis, relapsing-remitting Status: Chronic Current Visit: No (6) COPD (chronic obstructive pulmonary disease) Status: Chronic Current Visit: No (7) HTN (hypertension) Status: Chronic Current Visit: No (8) Hyperlipemia Status: Chronic Current Visit: No (9) Depression Status: Chronic Current Visit: No (10) Restless leg syndrome Status: Chronic Current Visit: No (11) CAD (coronary artery disease) Status: Chronic Current Visit: No (12) Anxiety Status: Chronic Current Visit: No (13) Debility Status: Acute Current Visit: Yes - Allergies/Procedures Done in Hospital Allergies/Adverse Reactions: Allergies indomethacin [From Indocin] Allergy (Verified 06/03/17 21:13) Hives indomethacin sodium [From Indocin] Allergy (Verified 06/03/17 21:13) Hives iodine Allergy (Verified 06/03/17 21:13) Hives propoxyphene napsylate [From Darvocet-N] Allergy (Verified 06/03/17 21:13) Out of control aspirin Adverse Reaction (Verified 06/03/17 21:13) Upset Stomach when taken in high doses clindamycin Adverse Reaction (Verified 06/03/17 21:13) Nausea sumatriptan [From Imitrex] Adverse Reaction (Verified 06/03/17 21:13) Vomiting Procedures: Stress Test - Type of Care/Length of Stay Estimated LOS: Convalescent Care Less Than 30 days Type of Care Needed: Skilled Rehab Potential: Fair Prognosis: Fair - Additional Orders/Day of Discharge Day of Discharge: 06/05/17 - Follow Up Care Primary Care Physician: Matthew Noble Chi, MD [Primary Care Provider] - Please follow up with your Primary Care Physician in: 2 weeks Please Follow Up With: Elias Butler MD When: 2 weeks
--- NOTE | 2017-06-04 13:33 | CASEMGMT ---
Addendum entered by Beverly Chaparro 06/04/17 14:09: W called, they cannot take pt. SW spoke w/Renate at [facility], they are reviewing the referral now and will let this SW know if they can take pt. LUPILLO Osorio, PARCEL POST OFFICER Original Note: SW received referral from physician for group home placement for pt. Pt was just here yesterday and discharged home. SW met w/pt in room, confirmed pt's current services at home of 2 hours/day on M,W,F from [facility], and goes to [facility] 2 days per week. Pt has 7 Mom's Meals per week and has a rollator and walker at home. Pt lives in mobile home w/8 steps in. Pt's Passport prospect manager is Dayne Wolf([phone]). SW spoke w/pt about discharge plan. Pt states that she is more wobbly and would like to go to rehab, but would have a tough time getting there. SW asked pt about going somewhere for rehab to stay. Pt states she is interested in going to a SNF, states she has been to [facility] in the past and was interested in [facility] on a prior admission but did not end up going for some reason. Pt has been to [place], but did not like it there. Pt states would go to [facility] or [facility]. SW explained will make referrals and see who may be able to take her. Pt states understanding. SW called [facility], message left. SW called [facility], message left and referral faxed. SW will continue to follow, waiting for call back from [facility]. SW did also call Dayne at [facility] and left a message, called the covering case finishing machine adjuster, Lui at [facility] know as well that pt is back in the hospital. LUPILLO Osorio, PARCEL POST OFFICER
[2017-06-04] MEDS: Clopidogrel Bisulfate 75 MG Tablet PO (14:17)
[2017-06-04] MEDS: Aspirin E.C. 81 MG Tablet PO (14:17)
[2017-06-04] MEDS: Enoxaparin 40 MG/0.4 ML Syringe SC (14:17)
--- NOTE | 2017-06-04 15:05 | CASEMGMT ---
Pt was accepted at [facility], will be in a shared room. SW spoke w/pt, let her know that [facility] can take her, she will be in a shared room. SW also let her know that [facility] does not have any beds. Pt states understanding, is agreeable. SW completed PAS/RR, faxed it along with all needed information to [facility] to attain a level of care. Once level of care is received, SW will let physician know and if medically ready pt will be able to be discharged to [facility]. LUPILLO Osorio, HOMICIDE SQUAD SERGEANT
--- NOTE | 2017-06-04 15:28 | CHAPLAIN ---
Type of Pastoral Visit _x__ Initial Visit ___ Follow-up Visit ___ On-call Visit ___ General Patient Visit ___ Spiritual Assessment ___ Family Conference ___ Bereavement ___ Rapid Response ___ Code Blue ___ Other (describe below) Pastoral Care Referral From _x__ Patient ___ Family ___ Nurse ___ Physician ___ Log Driver ___ Acquisitions Assistant ___ Other (describe below) Sacrament/Intervention _x__ Active listening ___ Anointing ___ Pentecostalism ___ Bereavement ___ Communion ___ Connie exploration ___ ___ Life review _x__ Prayer ___ Reconciliation ___ Sacrament of Sick ___ Supportive presence ___ Wedding ___ Other (describe below) Pastoral Comments
[2017-06-04] MEDS: 0.9% NaCl Peripheral Flush Adult/Peds IV (16:15)
[2017-06-04] MEDS: Pramipexole Di-HCl 0.5 MG Tablet PO (22:11)
[2017-06-04] MEDS: Atorvastatin Calcium 80 MG Tablet PO (22:11)
[2017-06-04] MEDS: SUVOREXANT 20 MG TABLET PO (22:11)
[2017-06-05 02:01] VITALS: PULSE 61
[2017-06-05] MEDS: Acetaminophen 325 MG Tablet 650 MG PO ×2 (02:51→12:57)
[2017-06-05 02:52] VITALS: BP 143/70; PULSE 55; RESP 18; TEMP 36.2; O2SAT 99
[2017-06-05 02:58] VITALS: PULSE 55
[2017-06-05] MEDS: oxyCODONE 5 MG Tablet PO ×2 (06:58→12:58)
[2017-06-05 07:25] VITALS: PULSE 57
[2017-06-05 07:25] LABS: Bedside Glucose 167 mg/dL (70-110)
[2017-06-05 08:00] VITALS: BP 118/74; PULSE 56; RESP 16; TEMP 36.7; O2SAT 99
[2017-06-05] MEDS: Enoxaparin 40 MG/0.4 ML Syringe SC (08:29)
[2017-06-05] MEDS: Glimepiride 4 MG Tablet PO (08:30)
[2017-06-05] MEDS: tiZANidine HCl 2 MG Tablet 4 MG PO (08:30)
[2017-06-05] MEDS: Donepezil HCl 10 MG Tablet 20 MG PO (08:30)
[2017-06-05] MEDS: Aspirin E.C. 81 MG Tablet PO (08:30)
[2017-06-05] MEDS: Clopidogrel Bisulfate 75 MG Tablet PO (08:31)
[2017-06-05] MEDS: Carvedilol 3.125 MG TABLET PO (08:31)
[2017-06-05] MEDS: Citalopram 10 MG Tablet 30 MG PO (08:31)
[2017-06-05] MEDS: Isosorbide Mononitrate 30 MG Tablet PO (08:31)
[2017-06-05] MEDS: Lisinopril 5 MG Tablet PO (08:36)
--- NOTE | 2017-06-05 13:12 | CASEMGMT ---
SW redid PAS/RR as MS needed to be on the PAS/RR as per [facility]. SW received the level of care. PRAVIN faxed all needed discharge information to [facility], schedule II script to [facility]. PRAVIN set up a 2:30pm ambulette w/[facility]. SW let pt, RN here, and Renate at [facility] know the time. Pt also asked SW to call [facility] to let them know pt is going to SNF, SW called [facility] and let Opal know. No further needs are anticipated. LUPILLO Osorio, LINE REPAIRER TOWER
--- NOTE | 2017-06-05 13:38 | PCM.DC.SUM ---
Discharge Date and Diagnosis - Problem List Patient Problems: Active and Suspected Problems (Last Reviewed 04/23/17 @ 11:15 by Sima Rocha) Chest pain (Acute) Syncope (Acute) Debility (Acute) Date of Admission: 06/03/17 Date of Discharge: 06/05/17 - Primary Discharge Diagnosis Active and Suspected Problems (Last Reviewed 04/23/17 @ 11:15 by Sima Rocha) Chest pain (Acute) - musculoskeletal Syncope (Acute) Debility (Acute) HTN Dementia Hx MS T2DM COPD Anxiety/depression IBS RLS Tobacco abuse - Secondary Discharge Diagnosis Chronic Problems (Last Reviewed 04/23/17 @ 11:15 by Sima Rocha) History of coronary artery stent placement (Chronic) BRYAN (obstructive sleep apnea) (Chronic) Ischemic cardiomyopathy (Chronic) Frequent falls (Chronic) Diabetes mellitus type 2 in nonobese (Chronic) Apical mural thrombus with acute DE (Chronic) Multiple sclerosis, relapsing-remitting (Chronic) COPD (chronic obstructive pulmonary disease) (Chronic) HTN (hypertension) (Chronic) Hyperlipemia (Chronic) Cervical spinal stenosis (Chronic) Depression (Chronic) Irritable bowel syndrome with diarrhea (Chronic) Vitamin B12 deficiency (Chronic) Menopausal disorder (Chronic) Hypomagnesemia (Chronic) Restless leg syndrome (Chronic) CAD (coronary artery disease) (Chronic) Anxiety (Chronic) Tobacco abuse (Chronic) Iron deficiency (Chronic) PAF (paroxysmal atrial fibrillation) (Chronic) Radiculitis, thoracic (Chronic) improved with increase in the Gabapentin Hospital Course and Treatment Imaging Results: RAD/Chest 1 View (Portable) IMPRESSION: No acute thoracic pathology. Operations: None Procedures: Stress test Summary of Care Provided: Physical exam on day of discharge: General: Resting comfortably NAD Psych: A/Ox3 normal affect HEENT: PEARRLA AT NC Neck: Supple NT CV: RRR no m/t/r/g/h Resp: CTA Abd: [id number] Soft NT no guarding or rigidity Ext: DP2+= no edema Skin: W/D normal turgor Lymph/Heme: No active bleeding or adenopathy Neuro: CN2-12 intact Hospital Course: The patient is a 61 year old F who was recently admitted to the hospital with syncope and was treated for hypotension, bradycardia, and dehydration. She came back to the ER the next day complaining of chest pain described as a midsternal heaviness. Troponin and EKG negative. The patient was admitted Modafinil was discontinued. Troponin was cycled. Pt underwent a stress test the following morning which was negative. The patient was experiencing great difficulty functioning at home and PTOT was ordered and patient desired placement. This was arranged for her and she was discharged to longterm in stable condition. She will need follow up with her medical historian and PCP in 2 weeks. This patient was seen by Edenilson Fields PA-C under the supervision of Doctor Demetra. [] Discharge Diet: Low fat/ Low Cholesterol, 1800 Calorie Control Diet, 4000 mg Sodium Diet Discharge Activity: Return to Normal Activity Home Medications: Medications to take at Discharge Aspirin E.C. [Ecotrin] 81 mg PO DAILY@0800 10/21/16 Bupropion HCl [Wellbutrin Sr] 200 mg PO BID 10/21/16 Citalopram [Celexa] 30 mg PO DAILY 10/21/16 Eluxadoline [Viberzi] 75 mg PO BID 10/21/16 Estradiol [Estrace (G)] 1 mg PO DAILY 10/21/16 Glimepiride [Amaryl] 4 mg PO BID 10/21/16 Insulin Detemir [Levemir FlexPen] 10 units SC DAILY PRN PRN 10/21/16 Medroxyprogesterone Acetate [Provera] 2.5 mg PO DAILY 10/21/16 Ropinirole HCl [Requip] 1 mg PO QHS PRN 11/16/16 Suvorexant [Belsomra] 20 mg PO QHS PRN 11/16/16 Donepezil HCl [Aricept] 20 mg PO DAILY 01/25/17 Albuterol Aerosols [Ventolin Aerosols] 2.5 mg INHALATION Q2H PRN PRN 01/28/17 rosuvastatin 40 mg tablet 40 mg PO QHS 28 Days #28 04/01/17 Carvedilol [Coreg (Beta Marielle)] 3.125 mg PO BID 05/18/17 Clopidogrel Bisulfate [Plavix] 75 mg PO DAILY 05/18/17 lisinopril 2.5 mg tablet 2.5 mg PO DAILY #28 tab 05/26/17 Isosorbide Mononitrate [Imdur] 30 mg PO DAILY 06/02/17 Teriflunomide [Aubagio] 7 mg PO DAILY 06/02/17 Tizanidine HCl [Zanaflex] 4 mg PO TID 06/02/17 Acetaminophen [Tylenol Tablet] 650 mg PO Q6H PRN PRN tablet 06/05/17 Nicotine [Nicoderm Cq (PBKC)] 21 mg TRANSDERM. DAILY PRN #30 patch 06/05/17 Oxycodone [Oxyir] 5 mg PO Q4H PRN PRN #12 tab 06/05/17 Following Prescrptions Were Given to Patient: Nicotine [Nicoderm Cq (PBKC)] 21 mg TRANSDERM. DAILY PRN #30 patch PRN Reason: Nicotine Craving Oxycodone [Oxyir] 5 mg PO Q4H PRN PRN #12 tab PRN Reason: Severe Pain (-02/03) Primary Care Physician: Matthew Noble Chi, MD [Primary Care Provider] - Please follow up with your Primary Care Physician in: 2 weeks Please Follow Up With: Elias Butler MD When: 2 weeks Disposition: Snf facility Minutes spent on discharge:: 35 Patient Condition:: Stable Meaningful Use Info Meaningful Use Diagnoses (Choose all that apply): None applicable
--- NOTE | 2017-06-05 13:48 | DS.PCM_ITS ---
Discharge Date and Diagnosis - Problem List Patient Problems: Active and Suspected Problems (Last Reviewed 04/23/17 @ 11:15 by Sima Rocha ) Chest pain (Acute) Syncope (Acute) Debility (Acute) Date of Admission: 06/03/17 Date of Discharge: 06/05/17 - Primary Discharge Diagnosis Active and Suspected Problems (Last Reviewed 04/23/17 @ 11:15 by Sima Rocha ) Chest pain (Acute) - musculoskeletal Syncope (Acute) Debility (Acute) HTN Dementia Hx MS T2DM COPD Anxiety/depression IBS RLS Tobacco abuse - Secondary Discharge Diagnosis Chronic Problems (Last Reviewed 04/23/17 @ 11:15 by Sima Rocha) History of coronary artery stent placement (Chronic) BRYAN (obstructive sleep apnea) (Chronic) Ischemic cardiomyopathy (Chronic) Frequent falls (Chronic) Diabetes mellitus type 2 in nonobese (Chronic) Apical mural thrombus with acute MD (Chronic) Multiple sclerosis, relapsing-remitting (Chronic) COPD (chronic obstructive pulmonary disease) (Chronic) HTN (hypertension) (Chronic) Hyperlipemia (Chronic) Cervical spinal stenosis (Chronic) Depression (Chronic) Irritable bowel syndrome with diarrhea (Chronic) Vitamin B12 deficiency (Chronic) Menopausal disorder (Chronic) Hypomagnesemia (Chronic) Restless leg syndrome (Chronic) CAD (coronary artery disease) (Chronic) Anxiety (Chronic) Tobacco abuse (Chronic) Iron deficiency (Chronic) PAF (paroxysmal atrial fibrillation) (Chronic) Radiculitis, thoracic (Chronic) improved with increase in the Gabapentin Hospital Course and Treatment Imaging Results: RAD/Chest 1 View (Portable) IMPRESSION: No acute thoracic pathology. Operations: None Procedures: Stress test Summary of Care Provided: Physical exam on day of discharge: General: Resting comfortably NAD Psych: A/Ox3 normal affect HEENT: PEARRLA AT NC Neck: Supple NT CV: RRR no m/t/r/g/h Resp: CTA Abd: [id number] Soft NT no guarding or rigidity Ext: DP2+= no edema Skin: W/D normal turgor Lymph/Heme: No active bleeding or adenopathy Neuro: CN2-12 intact Hospital Course: The patient is a 61 year old F who was recently admitted to the hospital with syncope and was treated for hypotension, bradycardia, and dehydration. She came back to the ER the next day complaining of chest pain described as a midsternal heaviness. Troponin and EKG negative. The patient was admitted Modafinil was discontinued. Troponin was cycled. Pt underwent a stress test the following morning which was negative. The patient was experiencing great difficulty functioning at home and PTOT was ordered and patient desired placement. This was arranged for her and [facility]. She will need follow up with her agent telegrapher and PCP in 2 weeks. This patient was seen by Edenilson Fields PA-C under the supervision of Doctor Demetra. [] Discharge Diet: Low fat/ Low Cholesterol, 1800 Calorie Control Diet, 4000 mg Sodium Diet Discharge Activity: Return to Normal Activity Home Medications: Medications to take at Discharge Aspirin E.C. [Ecotrin] 81 mg PO DAILY@0800 10/21/16 Bupropion HCl [Wellbutrin Sr] 200 mg PO BID 10/21/16 Citalopram [Celexa] 30 mg PO DAILY 10/21/16 Eluxadoline [Viberzi] 75 mg PO BID 10/21/16 Estradiol [Estrace (G)] 1 mg PO DAILY 10/21/16 Glimepiride [Amaryl] 4 mg PO BID 10/21/16 Insulin Detemir [Levemir FlexPen] 10 units SC DAILY PRN PRN 10/21/16 Medroxyprogesterone Acetate [Provera] 2.5 mg PO DAILY 10/21/16 Ropinirole HCl [Requip] 1 mg PO QHS PRN 11/16/16 Suvorexant [Belsomra] 20 mg PO QHS PRN 11/16/16 Donepezil HCl [Aricept] 20 mg PO DAILY 01/25/17 Albuterol Aerosols [Ventolin Aerosols] 2.5 mg INHALATION Q2H PRN PRN 01/28/17 rosuvastatin 40 mg tablet 40 mg PO QHS 28 Days #28 04/01/17 Carvedilol [Coreg (Beta Marielle)] 3.125 mg PO BID 05/18/17 Clopidogrel Bisulfate [Plavix] 75 mg PO DAILY 05/18/17 lisinopril 2.5 mg tablet 2.5 mg PO DAILY #28 tab 05/26/17 Isosorbide Mononitrate [Imdur] 30 mg PO DAILY 06/02/17 Teriflunomide [Aubagio] 7 mg PO DAILY 06/02/17 Tizanidine HCl [Zanaflex] 4 mg PO TID 06/02/17 Acetaminophen [Tylenol Tablet] 650 mg PO Q6H PRN PRN tablet 06/05/17 Nicotine [Nicoderm Cq (PBKC)] 21 mg TRANSDERM. DAILY PRN #30 patch 06/05/17 Oxycodone [Oxyir] 5 mg PO Q4H PRN PRN #12 tab 06/05/17 Following Prescrptions Were Given to Patient: Nicotine [Nicoderm Cq (PBKC)] 21 mg TRANSDERM. DAILY PRN #30 patch PRN Reason: Nicotine Craving Oxycodone [Oxyir] 5 mg PO Q4H PRN PRN #12 tab PRN Reason: Severe Pain (-02/03) Primary Care Physician: Matthew Noble Chi, MD [Primary Care Provider] - Please follow up with your Primary Care Physician in: 2 weeks Please Follow Up With: Elias Butler MD When: 2 weeks Disposition: Prison facility Minutes spent on discharge:: 35 Patient Condition:: Stable Meaningful Use Info Meaningful Use Diagnoses (Choose all that apply): None applicable
[2017-06-05 14:10] VITALS: O2SAT 99
== END 2017-06-05 14:08 | disposition skilled nursing facility (03) ==
LOC: ED 23:18 → PCU 06-04 00:06 → MS2 06-04 00:12
PROVIDERS: Emergency Provider Emergency Medicine; Family Provider Family Medicine Geriatric Medicine; PCP Family Medicine Geriatric Medicine; Visit Provider Internal Medicine
DX: R07.89 Other chest pain (principal); R55 Syncope and collapse; I25.2 Old myocardial infarction; G35 Multiple sclerosis; I48.0 Paroxysmal atrial fibrillation; E78.5 Hyperlipidemia, unspecified; I25.10 Atherosclerotic heart disease of native coronary artery without angina pectoris; J44.9 Chronic obstructive pulmonary disease, unspecified; G47.33 Obstructive sleep apnea (adult) (pediatric); I10 Essential (primary) hypertension; I25.5 Ischemic cardiomyopathy; E11.9 Type 2 diabetes mellitus without complications; K58.0 Irritable bowel syndrome with diarrhea; G25.81 Restless legs syndrome; M48.02 Spinal stenosis, cervical region; F32.9 Major depressive disorder, single episode, unspecified; Z95.5 Presence of coronary angioplasty implant and graft; Z79.899 Other long term (current) drug therapy; Z79.4 Long term (current) use of insulin; Z79.02 Long term (current) use of 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/antiplatelets; Z79.82 Long term (current) use of aspirin; G31.84 Mild cognitive impairment of uncertain or unknown etiology; Z87.891 Personal history of nicotine dependence
CPT/HCPCS: 36415; 71045; 80048; 84484; 85025; 93005; A4216

== ENCOUNTER 2017-06-28 19:17 | Emergency (ER) | payer MEDICARE, MEDICAID, SELFPAY ==
[2016-07-13 11:45] VITALS: BMI 31.4
[2017-06-28 19:18] VITALS: BP 130/90; PULSE 73; RESP 13; O2SAT 99
[2017-06-28 19:20] VITALS: BP 148/89; PULSE 79; RESP 12; TEMP 37.4; O2SAT 99; BMI 26.9
--- NOTE | 2017-06-28 19:24 | EKG12_ITS ---
Test Reason : CHEST PAIN Blood Pressure : / mmHG Vent. Rate : 071 BPM Atrial Rate : 071 BPM P-R Int : 158 ms QRS Dur : 090 ms QT Int : 410 ms P-R-T Axes : 045 -55 049 degrees QTc Int : 445 ms Normal sinus rhythm Left axis deviation Inferior infarct , age undetermined Anteroseptal infarct , age undetermined Abnormal ECG Confirmed by ALLAN WITT, DORYS ([id number]), city editor ANA MEDRANO ([id number]) on 06/30/2017 4:06:52 PM Referred By: ELIAS Confirmed By:DORYS LEMUS MD
[2017-06-28 19:31] LABS: Bedside Glucose 212 mg/dL (70-110)
[2017-06-28 19:38] LABS: Absolute Lymphocyte Count 1.28 X10^3/ul (0.83-4.51); Absolute Neutrophil Count 4.3 X10^3/uL (2.0-7.7); Basophil# 0.05 X10^3/uL; Basophil% 0.8 % (0-1); Eosinophil# 0.11 X10^3/uL; Eosinophils% 1.7 % (0-5); Hemoglobin 12.8 g/dl (12.0-15.0); Lymphocyte # 1.28 X10^3/ul (4.0); Lymphocyte % 20.1 % (19-41); Mean Corpuscular Hgb 28.5 pg (27.0-32.0); Mean Corpuscular Volume 89.1 fL (81-99); Mean Platelet Vol. 10.4 fl (6.2-12.0); Monocyte# 0.63 X10^3/uL; Monocyte% 9.9 % (0-10); Neutrophil # 4.28 X10^3/uL (2.7-7.7); Neutrophil % 67.3 % (47-70); Platelet Count 230 K/mm3 (150-450); RBC Distribution Width CV 12.9 % (11.6-14.6); RBC Distribution Width SD 41.8 fl (35.1-43.9); Red Blood Count 4.49 M/mm3 (4.2-5.4); White Blood Count 6.4 K/mm3 (4.4-11.0)
[2017-06-28 19:40] LABS: POSITIVE COUNT NO; POSITIVE DIFFERENTIAL NO; POSITIVE MORPHOLOGY NO
[2017-06-28 19:49] LABS: AST(SGOT) 23 U/L (15-37); Alanine Aminotransfer ALT/SGPT 25 U/L (13-56); Albumin, Serum 3.1 g/dL (3.2-5.0); Alcohol, Blood (Medical)-Serum < 3.0 mg/dL; Alkaline Phosphatase 105 U/L (45-117); Anion Gap 9 (5-15); BUN 9 mg/dL (7-18); BUN/Creat Ratio 10.9 RATIO (10-20); Chloride 109 mmol/L (98-107); Creatinine, Serum 0.82 mg/dL (0.55-1.02); EST Glomerular Filtration Rate 75 mL/min (>60); Est Glom Filt Rate - Afr Amer 90 mL/min (>60); Estimated Creatinine Clearance 66.59 ml/min; Globulin 3.2 g/dL (2.2-4.2); Glucose 187 mg/dL (74-106); Lipase 183 U/L (73-393); Potassium 3.6 mmol/L (3.5-5.1); Protein, Total 6.3 g/dL (6.4-8.2); Sodium Level 141 mmol/L (136-145)
[2017-06-28 19:56] LABS: Bacteria 0 SEEN /hpf (None Seen); Mucous, Urine 0 SEEN /hpf (<or=2+); Red Blood Cells-Urine 0 SEEN /hpf (0-5); White Blood Cells 0 SEEN /hpf (0-5)
[2017-06-28 19:57] LABS: Color, Urine Yellow (Yellow); Glucose, Dipstick Normal (Normal); Ketone-Dipstick Negative (Negative); Leukocyte Esterase-Dipstick Negative /ul (Negative); Nitrite-Dipstick Negative (Negative); Occult Blood-Urine Negative /ul (Negative); Protein-Dipstick Negative (Negative); Urine Bilirubin Dipstick Negative (Negative); Urine Clarity Clear (Clear); Urine Urobilinogen Normal (Normal)
[2017-06-28 20:08] LABS: Lactic Acid 0.9 mmol/L (0.4-2.0)
[2017-06-28 20:30] LABS: Amphetamine Urine VISTA NEGATIVE (<1000 ng/mL); Barbiturate Urine VISTA NEGATIVE (< 200 ng/mL); Benzodiazepine Urine VISTA NEGATIVE (< 200 ng/mL); Cocaine Urine VISTA NEGATIVE (< 300 ng/mL); Ecstacy Urine VISTA POSITIVE (< 500 ng/mL); Methadone Urine VISTA NEGATIVE (< 300 ng/mL); PCP Urine VISTA NEGATIVE (< 25 ng/mL); THC Urine VISTA NEGATIVE (< 50 ng/mL); Vista UDS pH Range 7
[2017-06-28 20:32] LABS: Squamous Epithelial Cells - UA 0-5 SEEN /hpf (5-10)
[2017-06-28 20:40] VITALS: BP 140/65; PULSE 60; RESP 16; O2SAT 97
[2017-06-28 21:01] VITALS: BP 135/69; PULSE 59; RESP 15; O2SAT 99
[2017-06-28 22:01] VITALS: BP 129/79; PULSE 62; RESP 18; O2SAT 99
--- NOTE | 2017-06-28 22:15 | ED.VISSUMM ---
- ER Visit Summary Date of Service: 06/28/17 Chief Complaint: Unresponsive History of Present Illness: The patient is a 61 F who was found unresponsive at her house. She was breathing on her own. Patient was recently discharged from a half-way back to her place of residence. There are 2 packs of a sleeping medication found next to her. They were all empty. She states that she was trying to sleep she took the medications. She is now responsive and answering questions properly. She denies being suicidal or homicidal at this time. Physical Examination: Vital signs reviewed. HEENT exam unremarkable. Heart is regular rate and rhythm without murmurs. Lungs are clear to auscultation. Abdomen is soft and nontender. Extremities reveal no edema. Skin exam normal. Neurologic exam normal. The patient is arousable and answers questions Test Results: EKG is normal sinus rhythm with rate of 71. Nonspecific ST-T wave changes. Labs are normal except for glucose 187. She does have positive methamphetamines and her tox screen Emergency Department Course and Treatment: Patient was observed in the ER. Her mental status was normal. Somebody is going to come and pick her up. I feel this is an accidental medication overdose of Belsomra. Patient will not be given this to go home with. She will need to follow-up with her primary care physician. Treatment Plan: [] Disposition: Discharge Impression: Accidental medication overdose This note was generated with [employer] dictation software. It may contain incorrect words, spelling, and punctuation that were not noted in review of the chart prior to signing ED Disposition - Plan for ED Patient: Chief Complaint: Overdose Referrals: Matthew Noble Chi, MD [Primary Care Provider] -
--- NOTE | 2017-06-28 22:18 | ED.DCSUM_ITS ---
- ER Visit Summary Date of Service: 06/28/17 Chief Complaint: Unresponsive History of Present Illness: The patient is a 61 F who was found unresponsive at her house. She was breathing on her own. Patient was recently discharged from a [facility] back to her place of residence. There are 2 packs of a sleeping medication found next to her. They were all empty. She states that she was trying to sleep she took the medications. She is now responsive and answering questions properly. She denies being suicidal or homicidal at this time. Physical Examination: Vital signs reviewed. HEENT exam unremarkable. Heart is regular rate and rhythm without murmurs. Lungs are clear to auscultation. Abdomen is soft and nontender. Extremities reveal no edema. Skin exam normal. Neurologic exam normal. The patient is arousable and answers questions Test Results: EKG is normal sinus rhythm with rate of 71. Nonspecific ST-T wave changes. Labs are normal except for glucose 187. She does have positive methamphetamines and her tox screen Emergency Department Course and Treatment: Patient was observed in the ER. Her mental status was normal. Somebody is going to come and pick her up. I feel this is an accidental medication overdose of Belsomra. Patient will not be given this to go home with. She will need to follow-up with her primary care physician. Treatment Plan: [] Disposition: Discharge Impression: Accidental medication overdose This note was generated with [employer] dictation software. It may contain incorrect words, spelling, and punctuation that were not noted in review of the chart prior to signing ED Disposition - Plan for ED Patient: Chief Complaint: Overdose Referrals: Matthew Noble Chi, MD [Primary Care Provider] -
--- NOTE | 2017-06-28 22:18 | ED.DEP ---
ED Disposition - Plan for ED Patient: Disposition: Home or Assisted Living Chief Complaint: Overdose Instructions: ED Overdose Accidental Referrals: Matthew Noble Chi, MD [Primary Care Provider] -
[2017-06-28 22:34] VITALS: BP 129/79; RESP 62; TEMP -7.7; TEMP 18; O2SAT 99
== END 2017-06-28 22:35 | disposition home or self-care (01) ==
PROVIDERS: Emergency Provider Emergency Medicine; Family Provider Family Medicine Geriatric Medicine; PCP Family Medicine Geriatric Medicine
DX: T42.6X1A Poisoning by other antiepileptic and sedative-hypnotic drugs, accidental (unintentional), initial encounter (principal); Y92.9 Unspecified place or not applicable; J44.9 Chronic obstructive pulmonary disease, unspecified; I25.10 Atherosclerotic heart disease of native coronary artery without angina pectoris; I48.91 Unspecified atrial fibrillation; E11.9 Type 2 diabetes mellitus without complications; I10 Essential (primary) hypertension; K58.9 Irritable bowel syndrome, unspecified; F32.9 Major depressive disorder, single episode, unspecified; Z79.899 Other long term (current) drug therapy
CPT/HCPCS: 80053; 80307; 80320; 81001; 82962; 83605; 83690; 85025; 93005; 99285; J7030; A4216; G0480

== ENCOUNTER → 2017-06-29 11:15 | Outpatient (CLI) | payer MEDICARE, MEDICAID, SELFPAY ==
[2016-07-13 11:45] VITALS: BMI 31.4
[2017-06-29 13:05] LABS: Absolute Lymphocyte Count 1.35 X10^3/ul (0.83-4.51); Basophil# 0.07 X10^3/uL; Basophil% 0.7 % (0-1); Eosinophil# 0.14 X10^3/uL; Eosinophils% 1.5 % (0-5); Hematocrit 41.7 % (37-47); Hemoglobin 13.5 g/dl (12.0-15.0); Lymphocyte # 1.35 X10^3/ul (4.0); Lymphocyte % 14.2 % (19-41); Mean Corp Hgb Conc 32.4 g/gl (32-36); Mean Corpuscular Hgb 29.3 pg (27.0-32.0); Mean Corpuscular Volume 90.5 fL (81-99); Mean Platelet Vol. 11.2 fl (6.2-12.0); Monocyte# 0.96 X10^3/uL; Monocyte% 10.1 % (0-10); Neutrophil # 6.99 X10^3/uL (2.7-7.7); Neutrophil % 73.3 % (47-70); Platelet Count 254 K/mm3 (150-450); RBC Distribution Width CV 12.9 % (11.6-14.6); RBC Distribution Width SD 42.1 fl (35.1-43.9); Red Blood Count 4.61 M/mm3 (4.2-5.4); White Blood Count 9.5 K/mm3 (4.4-11.0)
[2017-06-29 13:07] LABS: POSITIVE COUNT NO; POSITIVE DIFFERENTIAL NO; POSITIVE MORPHOLOGY NO
[2017-06-29 13:33] LABS: Vitamin D,25 Hydroxy 26.2 ng/mL (29.95-100.01)
[2017-06-29 13:39] LABS: ALB/GLOB Ratio 0.9 RATIO (0.9-2.4); AST(SGOT) 23 U/L (15-37); Alanine Aminotransfer ALT/SGPT 29 U/L (13-56); Albumin, Serum 3.3 g/dL (3.2-5.0); Alkaline Phosphatase 109 U/L (45-117); Anion Gap 7 (5-15); BUN 10 mg/dL (7-18); BUN/Creat Ratio 11.1 RATIO (10-20); Calcium,Total 9.1 mg/dL (8.5-10.1); Chloride 107 mmol/L (98-107); EST Glomerular Filtration Rate 67 mL/min (>60); Est Glom Filt Rate - Afr Amer 81 mL/min (>60); Globulin 3.5 g/dL (2.2-4.2); Glucose 192 mg/dL (74-106); Protein, Total 6.8 g/dL (6.4-8.2); Sodium Level 136 mmol/L (136-145); Thyroid Stim Hormone (TSH) 0.73 uIU/mL (0.358-3.74)
== END ==
PROVIDERS: Family Provider Family Medicine Geriatric Medicine; PCP Family Medicine Geriatric Medicine; Visit Provider Family Medicine Geriatric Medicine
DX: E11.9 Type 2 diabetes mellitus without complications (principal); I10 Essential (primary) hypertension; E55.9 Vitamin D deficiency, unspecified
CPT/HCPCS: 36415; 80053; 82306; 84443; 85025

== ENCOUNTER 2017-07-02 15:20 | Emergency (ER) | payer MEDICARE, MEDICAID, SELFPAY ==
[2016-07-13 11:45] VITALS: BMI 31.4
[2017-07-02] VITALS (11 sets, daily range): BP systolic 118–141; BP diastolic 58–78; PULSE 70–86; RESP 14–16; TEMP 36.2–36.4; O2SAT 98–100; BMI 27.0
--- NOTE | 2017-07-02 15:39 | EKG12_ITS ---
Test Reason : Blood Pressure : / mmHG Vent. Rate : 077 BPM Atrial Rate : 077 BPM P-R Int : 158 ms QRS Dur : 090 ms QT Int : 384 ms P-R-T Axes : 031 -58 047 degrees QTc Int : 434 ms Normal sinus rhythm Left axis deviation Inferior infarct , age undetermined Anterolateral infarct , age undetermined Abnormal ECG Confirmed by JURGEN AARON ([id number]), social media editor ANA MEDRANO ([id number]) on 07/06/2017 1:42:23 PM Referred By: VANCE Confirmed By:JURGEN AARON
--- NOTE | 2017-07-02 15:49 | ED.DCSUM_ITS ---
- ER Visit Summary Date of Service: 07/02/17 Chief Complaint: Suicidal History of Present Illness: The patient is a 61 F with suicidal ideation. This was triggered by thinking about her who several years ago. She was seen here earlier this week after an overdose. She was at crisis today and was sent here for an evaluation for suicidality. She has no current plan or attempt. Physical Examination: Vital signs unremarkable. Afebrile. Alert and oriented. No focal or lateralizing neurologic abnormalities. Heart regular. Lungs clear. Abdomen soft. Skin appears normal. Test Results: EKG, labs, urinalysis, tox screen, and alcohol testing pending. Emergency Department Course and Treatment: She was placed under suicide precautions. Workup was fairly unremarkable. She had evidence of UTI. Her tox screen was positive for amphetamines. She will be treated with Keflex for her UTI. Counselor is speaking with the patient at the time of this dictation. She will need transferred for inpatient care. Treatment Plan: As above Disposition: Transfer Impression: 1. Suicidal ideation 2. UTI--cystitis This note was generated with [employer] dictation software. It may contain incorrect words, spelling, and punctuation that were not noted in review of the chart prior to signing ED Disposition - Plan for ED Patient: Chief Complaint: Suicidal Referrals: Matthew Noble Chi, MD [Primary Care Provider] -
[2017-07-02 16:14] LABS: Absolute Lymphocyte Count 1.57 X10^3/ul (0.83-4.51); Absolute Neutrophil Count 6.1 X10^3/uL (2.0-7.7); Basophil# 0.04 X10^3/uL; Basophil% 0.5 % (0-1); Eosinophil# 0.15 X10^3/uL; Eosinophils% 1.7 % (0-5); Hematocrit 38.2 % (37-47); Hemoglobin 12.4 g/dl (12.0-15.0); Lymphocyte # 1.57 X10^3/ul (4.0); Mean Corp Hgb Conc 32.5 g/gl (32-36); Mean Corpuscular Hgb 28.9 pg (27.0-32.0); Mean Platelet Vol. 10.3 fl (6.2-12.0); Monocyte# 0.85 X10^3/uL; Monocyte% 9.7 % (0-10); Neutrophil # 6.09 X10^3/uL (2.7-7.7); Neutrophil % 69.9 % (47-70); Platelet Count 234 K/mm3 (150-450); RBC Distribution Width CV 13.1 % (11.6-14.6); RBC Distribution Width SD 42.2 fl (35.1-43.9); Red Blood Count 4.29 M/mm3 (4.2-5.4); White Blood Count 8.7 K/mm3 (4.4-11.0)
[2017-07-02 16:15] LABS: Anion Gap 7 (5-15); BUN 18 mg/dL (7-18); BUN/Creat Ratio 21.3 RATIO (10-20); Calcium,Total 9.4 mg/dL (8.5-10.1); Chloride 110 mmol/L (98-107); Creatinine, Serum 0.84 mg/dL (0.55-1.02); EST Glomerular Filtration Rate 73 mL/min (>60); Est Glom Filt Rate - Afr Amer 88 mL/min (>60); Estimated Creatinine Clearance 62.49 ml/min; Glucose 161 mg/dL (74-106); POSITIVE COUNT NO; POSITIVE DIFFERENTIAL NO; POSITIVE MORPHOLOGY NO; Potassium 3.5 mmol/L (3.5-5.1); Sodium Level 137 mmol/L (136-145)
--- NOTE | 2017-07-02 16:34 | ED.RN ---
[facility] WILL BE HERE IN A HALF HOUR TO SEE THE PT
[2017-07-02 16:38] LABS: Mucous, Urine 0 SEEN /hpf (<or=2+); Red Blood Cells-Urine 0 SEEN /hpf (0-5)
[2017-07-02 16:44] LABS: Alcohol, Blood (Medical)-Serum < 3.0 mg/dL
[2017-07-02 17:15] LABS: Amphetamine Urine VISTA POSITIVE (<1000 ng/mL); Barbiturate Urine VISTA NEGATIVE (< 200 ng/mL); Benzodiazepine Urine VISTA NEGATIVE (< 200 ng/mL); Cocaine Urine VISTA NEGATIVE (< 300 ng/mL); Ecstacy Urine VISTA POSITIVE (< 500 ng/mL); Methadone Urine VISTA NEGATIVE (< 300 ng/mL); PCP Urine VISTA NEGATIVE (< 25 ng/mL); THC Urine VISTA NEGATIVE (< 50 ng/mL); Vista UDS pH Range 5
[2017-07-02 17:18] LABS: Color, Urine Yellow (Yellow); Glucose, Dipstick Normal (Normal); Ketone-Dipstick 5 mg/dl (Negative); Leukocyte Esterase-Dipstick 500 /ul (Negative); Nitrite-Dipstick Positive (Negative); Occult Blood-Urine 10 /ul (Negative); Protein-Dipstick 100 mg/dl (Negative); Specific Gravity, Urine 1.025 (1.002-1.030); Urine Bilirubin Dipstick Negative (Negative); Urine Clarity Cloudy (Clear); Urine Urobilinogen 1 mg/dl (Normal)
[2017-07-02 17:33] LABS: Bacteria 3+ /hpf (None Seen); Squamous Epithelial Cells - UA 25-50 SEEN /hpf (5-10); White Blood Cells 25-50 SEEN /hpf (0-5)
--- NOTE | 2017-07-02 17:57 | ED.RN ---
ANNA WITH [facility] IS HERE.
--- NOTE | 2017-07-02 17:58 | ED.DEP ---
ED Disposition - Plan for ED Patient: Chief Complaint: Suicidal Prescriptions: Cephalexin [Keflex] 500 mg PO Q6 7 Days #28 cap Referrals: Matthew Noble Chi, MD [Primary Care Provider] -
[2017-07-02] MEDS: Cephalexin 250 MG Capsule 500 MG PO (19:31)
[2017-07-02] MEDS: Acetaminophen 325 MG Tablet 650 MG PO (19:44)
--- NOTE | 2017-07-02 19:54 | ED.RN ---
Ice pack for itching and pain. New bandage for right wrist as requested.
[2017-07-02] MEDS: Pramipexole Di-HCl 0.5 MG Tablet PO (22:51)
--- NOTE | 2017-07-02 23:59 | ED.RN ---
REPORT TO [facility]. ALL PT BELONGINGS GIVEN TO [facility] FOR TRANSPORT. PT SKIN P/W/D, RESP EVEN AND UNLABORED, PT A&O X 3, NO DISTRESS NOTED. PT OUT OF ED WITH [facility] FOR TRANSPORT TO [facility].
== END 2017-07-03 00:01 ==
PROVIDERS: Emergency Provider Emergency Medicine; Family Provider Family Medicine Geriatric Medicine; PCP Family Medicine Geriatric Medicine
DX: R45.851 Suicidal ideations (principal); N30.90 Cystitis, unspecified without hematuria; G35 Multiple sclerosis; I48.91 Unspecified atrial fibrillation; E11.9 Type 2 diabetes mellitus without complications; I10 Essential (primary) hypertension; I25.2 Old myocardial infarction; Z72.0 Tobacco use; Z79.02 Long term (current) use of 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/antiplatelets; Z79.82 Long term (current) use of aspirin; Z79.4 Long term (current) use of insulin; Z79.899 Other long term (current) drug therapy
CPT/HCPCS: 80048; 80307; 80320; 81001; 85025; 93005; 99284; G0480

== ENCOUNTER → 2017-08-26 16:56 | Outpatient (CLI) | payer MEDICARE, MEDICAID, SELFPAY ==
[2016-07-13 11:45] VITALS: BMI 31.4
[2017-08-26 17:24] LABS: Absolute Lymphocyte Count 1.65 X10^3/ul (0.83-4.51); Absolute Neutrophil Count 5.6 X10^3/uL (2.0-7.7); Basophil# 0.06 X10^3/uL; Basophil% 0.7 % (0-1); Eosinophils% 1.2 % (0-5); Hematocrit 37.7 % (37-47); Hemoglobin 12.2 g/dl (12.0-15.0); Lymphocyte # 1.65 X10^3/ul (4.0); Lymphocyte % 20.6 % (19-41); Mean Corp Hgb Conc 32.4 g/gl (32-36); Mean Corpuscular Hgb 28.8 pg (27.0-32.0); Mean Corpuscular Volume 88.9 fL (81-99); Mean Platelet Vol. 10.5 fl (6.2-12.0); Monocyte# 0.57 X10^3/uL; Monocyte% 7.1 % (0-10); Neutrophil # 5.62 X10^3/uL (2.7-7.7); Neutrophil % 70.3 % (47-70); POSITIVE COUNT NO; POSITIVE DIFFERENTIAL NO; POSITIVE MORPHOLOGY NO; Platelet Count 287 K/mm3 (150-450); RBC Distribution Width CV 14.1 % (11.6-14.6); RBC Distribution Width SD 45.7 fl (35.1-43.9); Red Blood Count 4.24 M/mm3 (4.2-5.4)
[2017-08-26 18:14] LABS: AST(SGOT) 28 U/L (15-37); Alanine Aminotransfer ALT/SGPT 27 U/L (13-56); Albumin, Serum 3.4 g/dL (3.2-5.0); Alkaline Phosphatase 152 U/L (45-117); Anion Gap 7 (5-15); BUN 16 mg/dL (7-18); BUN/Creat Ratio 20.7 RATIO (10-20); Calcium,Total 9.4 mg/dL (8.5-10.1); Chloride 104 mmol/L (98-107); Creatinine, Serum 0.77 mg/dL (0.55-1.02); EST Glomerular Filtration Rate 80 mL/min (>60); Est Glom Filt Rate - Afr Amer 97 mL/min (>60); Globulin 3.4 g/dL (2.2-4.2); Glucose 54 mg/dL (74-106); Potassium 3.1 mmol/L (3.5-5.1); Protein, Total 6.8 g/dL (6.4-8.2); Sodium Level 137 mmol/L (136-145); Thyroid Stim Hormone (TSH) 0.34 uIU/mL (0.358-3.74); Vitamin D,25 Hydroxy 40.1 ng/mL (29.95-100.01)
== END ==
PROVIDERS: Family Provider Family Medicine Geriatric Medicine; PCP Family Medicine Geriatric Medicine; Visit Provider Family Medicine Geriatric Medicine
DX: E11.9 Type 2 diabetes mellitus without complications (principal); I50.9 Heart failure, unspecified; E55.9 Vitamin D deficiency, unspecified
CPT/HCPCS: 36415; 80053; 82306; 84443; 85025

== ENCOUNTER → 2017-09-03 14:01 | Outpatient (CLI) | payer MEDICARE, MEDICAID, SELFPAY ==
[2016-07-13 11:45] VITALS: BMI 31.4
[2017-09-03 17:39] LABS: Anion Gap 7 (5-15); BUN 18 mg/dL (7-18); BUN/Creat Ratio 21.9 RATIO (10-20); Calcium,Total 9.1 mg/dL (8.5-10.1); Chloride 109 mmol/L (98-107); Creatinine, Serum 0.82 mg/dL (0.55-1.02); EST Glomerular Filtration Rate 75 mL/min (>60); Est Glom Filt Rate - Afr Amer 90 mL/min (>60); Glucose 168 mg/dL (74-106); Potassium 3.6 mmol/L (3.5-5.1); Sodium Level 137 mmol/L (136-145)
== END ==
PROVIDERS: Family Provider Family Medicine Geriatric Medicine; PCP Family Medicine Geriatric Medicine; Visit Provider Family Medicine Geriatric Medicine
DX: E87.6 Hypokalemia (principal)
CPT/HCPCS: 36415; 80048

== ENCOUNTER 2017-10-02 15:35 | Emergency (ER) | payer MEDICARE, MEDICAID, SELFPAY ==
[2016-07-13 11:45] VITALS: BMI 31.4
--- NOTE | 2017-10-02 15:35 | DT_ITS ---
This patient was seen during an EMR downtime September 28, 2017 - October 05, 2017. This patient may have a combination of paper and electronic documentation or all paper documentation. All documentation is viewable within the e-chart portion of [facility] for each patient visit.
--- NOTE | 2017-10-02 16:20 | CT_ITS ---
STUDY: CT ABDOMEN AND PELVIS WITHOUT CONTRAST REASON FOR EXAM: Female, 61 years old. Right flank pain RADIATION DOSAGE (If Supplied By Facility): CTDIvol = ( 16.99 ) mGy, DLP = ( 759.68 ) mGycm TECHNIQUE: Transaxial images were obtained from the dome of the diaphragm to the symphysis pubis without oral contrast, and without intravenous contrast. Sagittal and coronal images were reconstructed. Individualized dose optimization techniques were used for this CT. COMPARISON: None. FINDINGS: The visualized lung bases are unremarkable. The visualized portions of the heart are within normal limits. There is hepatomegaly with diffuse hepatic enlargement. Normal gallbladder and extrahepatic biliary system. Normal spleen. Normal pancreas. Normal bilateral adrenal glands. Normal right kidney. Normal left kidney. Normal visualized stomach. Normal small intestine. Significant fecal retention within the ascending and transverse colon compatible with constipation. The appendix is visualized and appears normal. Normal abdominal aorta. Normal inferior vena cava. Normal retroperitoneum. Normal urinary bladder. There is atrophy of the uterus. Normal abdominal wall. There are diffuse degenerative changes of the visualized lumbar spine. CT/Abdomen/Pelvis without Cont IMPRESSION: No evidence of lithiasis or renal obstruction. Moderate fecal retention compatible with constipation. Electronically Signed: Juan Montenegro DO at 17:12 EDT Tel , Service support ,
[2017-10-05 10:44] LABS: Hemoglobin 11.3 g/dl (12.0-15.0); Red Blood Count 3.97 M/mm3 (4.2-5.4); White Blood Count 17.2 K/mm3 (4.4-11.0)
[2017-10-05 10:45] LABS: Absolute Lymphocyte Count 0.87 X10^3/ul (0.83-4.51); Absolute Neutrophil Count 15.2 X10^3/uL (2.0-7.7); Basophil# 0.01 X10^3/uL; Basophil% 0.1 % (0-1); Hematocrit 33.9 % (37-47); Lymphocyte # 0.87 X10^3/ul (4.0); Mean Corp Hgb Conc 33.3 g/gl (32-36); Mean Corpuscular Hgb 28.5 pg (27.0-32.0); Mean Corpuscular Volume 85.4 fL (81-99); Mean Platelet Vol. 11.4 fl (6.2-12.0); Monocyte# 1.11 X10^3/uL; Monocyte% 6.4 % (0-10); Neutrophil # 15.15 X10^3/uL (2.7-7.7); POSITIVE COUNT NO; POSITIVE DIFFERENTIAL NO; POSITIVE MORPHOLOGY NO; Platelet Count 279 K/mm3 (150-450); RBC Distribution Width CV 13.8 % (11.6-14.6); RBC Distribution Width SD 42.4 fl (35.1-43.9)
[2017-10-05 10:46] LABS: Partial Thromboplast Time 23.4 Seconds (24.1-36.2); Prothrombin Time (Protime)PT. 13.6 SECONDS (11.7-14.9)
[2017-10-05 21:50] LABS: Anion Gap 8 (5-15); BUN 30 mg/dL (7-18); BUN/Creat Ratio 33.7 RATIO (10-20); Calcium,Total 8.9 mg/dL (8.5-10.1); Chloride 104 mmol/L (98-107); Creatinine, Serum 0.89 mg/dL (0.55-1.02); EST Glomerular Filtration Rate 68 mL/min (>60); Est Glom Filt Rate - Afr Amer 82 mL/min (>60); Glucose 291 mg/dL (74-106); Potassium 4.1 mmol/L (3.5-5.1); Sodium Level 134 mmol/L (136-145)
== END 2017-10-02 18:25 | disposition home or self-care (01) ==
LOC: ED 10-03 10:52
PROVIDERS: Emergency Provider Emergency Medicine; Family Provider Family Medicine Geriatric Medicine; PCP Family Medicine Geriatric Medicine
DX: R10.9 Unspecified abdominal pain (principal)
CPT/HCPCS: 74176; 80048; 85025; 85610; 85730; J2405

== ENCOUNTER 2017-10-04 11:15 | Inpatient (IN) | payer MEDICARE, MEDICAID, SELFPAY ==
[2016-07-13 11:45] VITALS: BMI 31.4
--- NOTE | 2017-10-04 14:37 | RAD_ITS ---
STUDY: X-RAY CHEST REASON FOR EXAM: Female, 61 years old. Shortness of breath TECHNIQUE: A single frontal view of the chest was obtained. COMPARISON: None. FINDINGS: The lungs are underaerated. There are no focal airspace opacities. There is no demonstrated pleural abnormality. The cardiac silhouette is normal in size. The mediastinum and hilar regions are unremarkable. Normal visualized pulmonary arteries. There is atherosclerotic calcification of the thoracic aorta. There are diffuse degenerative changes of the visualized spine. There are surgical changes in the cervical spine. The visualized ribs, clavicles, and shoulders are unremarkable. There is no demonstrated abnormality of the visualized upper abdomen. RAD/Chest 1 View (Portable) IMPRESSION: No acute cardiopulmonary abnormalities. Electronically Signed: Amy Martinez MD at 15:17 EDT Tel Direct: [phone], Service support ,
--- NOTE | 2017-10-04 17:40 | DT_ITS ---
This patient was seen during an EMR downtime September 28, 2017 - October 05, 2017. This patient may have a combination of paper and electronic documentation or all paper documentation. All documentation is viewable within the e-chart portion of [facility] for each patient visit.
[2017-10-05] MEDS: Morphine 2 MG/ML Syringe IV ×4 (04:28→20:17)
[2017-10-05] MEDS: Ibuprofen 200 MG Tablet 400 MG PO (06:15)
[2017-10-05 07:00] LABS: Hematocrit 25.4 % (37-47); Hemoglobin 8.4 g/dl (12.0-15.0); Mean Corp Hgb Conc 33.1 g/gl (32-36); Mean Corpuscular Hgb 28.7 pg (27.0-32.0); Mean Corpuscular Volume 86.7 fL (81-99); Mean Platelet Vol. 10.6 fl (6.2-12.0); Platelet Count 191 K/mm3 (150-450); RBC Distribution Width SD 42.8 fl (35.1-43.9); Red Blood Count 2.93 M/mm3 (4.2-5.4); White Blood Count 7.8 K/mm3 (4.4-11.0)
[2017-10-05 07:08] LABS: Scan Indicated on CBC? Y/N NO
[2017-10-05 07:25] LABS: Anion Gap 7 (5-15); BUN 19 mg/dL (7-18); BUN/Creat Ratio 43.1 RATIO (10-20); Calcium,Total 6.8 mg/dL (8.5-10.1); Chloride 114 mmol/L (98-107); Creatinine, Serum 0.44 mg/dL (0.55-1.02); EST Glomerular Filtration Rate 153 mL/min (>60); Est Glom Filt Rate - Afr Amer 185 mL/min (>60); Glucose 231 mg/dL (74-106); Magnesium 2.1 mg/dL (1.6-2.6); Potassium 3.1 mmol/L (3.5-5.1); Sodium Level 142 mmol/L (136-145)
[2017-10-05] MEDS: Insulin Lispro 100 UNIT/ML INSULN.PEN SC ×3 (08:00→21:46)
[2017-10-05 09:08] LABS: Bacteria 0 SEEN /hpf (None Seen); Mucous, Urine 0 SEEN /hpf (<or=2+)
[2017-10-05] MEDS: Carvedilol 3.125 MG TABLET PO ×2 (09:10→21:48)
--- NOTE | 2017-10-05 09:13 | RAD_ITS ---
STUDY: X-RAY - ABDOMEN/PELVIS REASON FOR EXAM: Female, 61 years old. Diffuse abdominal pain x2 days TECHNIQUE: AP supine and upright views of the abdomen and pelvis. 4 total views obtained COMPARISON: None. FINDINGS: Normal visualized lung bases. Bowel gas pattern shows multiple nondistended air-fluid levels within small bowel loops consistent with ileus. This is likely due to retained stool throughout the colon. There is no demonstrated free abdominal air. The visualized liver, spleen and kidneys are grossly normal in size and morphology. Normal soft tissue structures. There are diffuse degenerative changes of the visualized lumbar spine. RAD/Abd Inc Decub and/or Erect IMPRESSION: Small bowel ileus, likely due to retained stool in the colon Electronically Signed: Cliff Moreau MD at 14:11 EDT , Service support ,
[2017-10-05 09:17] LABS: Color, Urine Yellow (Yellow); Glucose, Dipstick NEGATIVE (Normal); Ketone-Dipstick Negative (Negative); Leukocyte Esterase-Dipstick 100 /ul (Negative); Nitrite-Dipstick Negative (Negative); Occult Blood-Urine 10 /ul (Negative); Protein-Dipstick 30 mg/dl (Negative); Red Blood Cells-Urine 0-5 SEEN /hpf (0-5); Squamous Epithelial Cells - UA 0-5 SEEN /hpf (5-10); Urine Bilirubin Dipstick Negative (Negative); Urine Clarity Sl Cldy (Clear); Urine Urobilinogen Normal (Normal); White Blood Cells 5-10 SEEN /hpf (0-5)
[2017-10-05] MEDS: Estradiol 0.5 MG Tablet PO (10:39)
[2017-10-05] MEDS: DULoxetine Hcl 60 MG Capsule PO (10:39)
[2017-10-05] MEDS: Isosorbide Mononitrate 30 MG Tablet PO (10:39)
[2017-10-05] MEDS: Lisinopril 2.5 MG Tablet PO (10:40)
[2017-10-05] MEDS: Clopidogrel Bisulfate 75 MG Tablet PO (10:40)
[2017-10-05] MEDS: Aspirin 81 MG TAB.CHEW PO (10:42)
[2017-10-05] MEDS: NON-FORMULARY PO (10:43)
[2017-10-05] MEDS: Famotidine 20 MG Tablet PO ×2 (10:48→21:52)
[2017-10-05] MEDS: oxyCODONE 5 MG Tablet 7.5 MG PO ×2 (11:31→18:28)
[2017-10-05] MEDS: Modafinil 200 MG Tablet 100 MG PO (11:43)
[2017-10-05 12:01] LABS: Bedside Glucose 340 mg/dL (70-110)
[2017-10-05 12:30] LABS: Hematocrit 33.5 % (37-47); Hemoglobin 10.9 g/dl (12.0-15.0)
--- NOTE | 2017-10-05 12:55 | CASEMGMT ---
Addendum entered by Valerie Nichols 10/05/17 15:37: Pt had asked this worker earlier if she could have a copy of Living Will/POA paperwork that she completed with Rajwinder on Thursday. This worker looked in pt's chart and no Living Will/POA paperwork is in chart. SW placed a call to Rajwinder SANCHEZ and per Rajwinder she didn't complete Living Will/POA paperwork with pt. SW back to update pt but pt soundly sleeping. SW will check back with pt as time allows. Plan: Pt to return home at discharge and continue resumption of Home Health Care through [facility], [facility] services, [facility] and counseling services through [facility]. Valerie Nichols BUSINESS ASSOCIATE, TAPEMAN Original Note: Addendum entered by Valerie Nichols 10/05/17 14:50: SW placed a call to pt's Passport CM Dung Wolf to update her that pt should be discharged today. Original Note: Social Work Assessment Referral Date: 10/05/2017 Date of Assessment: 10/05/2017 Reason for consult: Psych History Informant: Dr. Mccrary Personal Status: SW met with pt to complete assessment. SW introduced self and role at [facility]. Pt is alert and orientated x4. Pt states that she lives with a roommate named Jeff who is also pt's POA. Pt states that Jeff works a lot so she is often left at home alone. Pt states that before coming into the hospital she was previously independent with ADLs. DME include grab bars, wheelchair, and walker. Pt states that her nephew is good support for her and also lives with her and her roommate. Pt states that she has [facility] through [employer]. Pt states that she gets retirement services. Pt states that she placed a call to [facility] to inform them that she should be discharging home today. Pt states that she also receives [facility] and her Biology Teacher is Dung Wolf. Pt states that she also receives services through [facility]. Pt states that she was recently discharged from [facility] on August 14. Pt states that she would like to return home at discharge and resume Home Health Care. Substance Abuse Hx: Pt states that she currently smokes cigarettes and smokes about 6 cigarettes a day. Pt denied additional substance abuse hx. Mental Health Hx: Pt states that she has a history of depression and bipolar. Pt states that in May she attempted suicide. Pt states that her attempt ended her in the Hospital and then she was admitted into [facility]. Pt states that going to [facility] was the best thing that could've happened to her. Pt states that she was able to decrease the amount of medication she takes and she feels better than she has in months. Pt currently denied any suicidal/homicidal thoughts/plans/ideations and denied any current depressive and/or bipolar symptoms. Pt states that she currently receives counseling services through [facility] twice a month and see's a psychiatrist once every three months. Pt denied additional counseling resources. Pt denied additional needs or concerns at this time. Pt states that she will need transportation once she is discharged. PRAVIN updated leather grader Angelica of this. Scale Tester Angelica states understanding. This PRAVIN updated JEAN MARIE Cormier that pt has home health care through [facility] [place]. JEAN MARIE Cormier states understanding. Plan: Pt to return home at discharge and continue resumption of Home Health Care through [facility], [facility] services, [facility] and counseling services through [facility]. Valerie Nichols BUSINESS ASSOCIATE, TAPEMAN
[2017-10-05 16:00] VITALS: BP 113/62; PULSE 60; RESP 16; TEMP 36.9; O2SAT 100
--- NOTE | 2017-10-05 16:06 | CASEMGMT ---
Addendum entered by Valerie Nichols 10/05/17 16:41: Social work in to update pt that this worker was unable to find Living Will/POA paperwork in pt's chart. Pt states that it should be available as she completed it years ago. This SW explained that this worker can look online in pt's chart again to see if this worker is able to locate document. Pt denied stating that her sister has a copy of it and she will get it from her. Original Note: Social Work Note SW back to check with pt. Pt still soundly sleeping. SW provided pt with Living Will/POA form with pt in the event that she wishes to look it over and/or complete it if she discharges this evening. Plan: Discharge home with resumption of Home Health Care through [facility], [facility] services, [facility], and counseling services through [facility]. Valerie Nichols BUDGET RECORD CLERK, ALUMINUM BOATS ASSEMBLER
[2017-10-05 18:26] LABS: Bedside Glucose 282 mg/dL (70-110)
[2017-10-05 18:44] VITALS: PULSE 115
[2017-10-05 20:26] VITALS: BP 122/76; PULSE 62; RESP 16; TEMP 36.8; O2SAT 100
[2017-10-05] MEDS: Methadone 10 MG Tablet PO (21:45)
[2017-10-05] MEDS: Pramipexole Di-HCl 0.5 MG Tablet PO (21:47)
[2017-10-05] MEDS: Atorvastatin Calcium 80 MG Tablet PO (21:47)
[2017-10-05] MEDS: Donepezil HCl 10 MG Tablet 20 MG PO (21:48)
[2017-10-05] MEDS: Mirtazapine 15 MG Tablet PO (21:49)
[2017-10-05 22:16] LABS: Bedside Glucose 235 mg/dL (70-110)
[2017-10-06] MEDS: Morphine 2 MG/ML Syringe IV ×3 (00:22→11:35)
[2017-10-06 02:17] VITALS: BP 140/76; PULSE 53; RESP 18; TEMP 36.6; O2SAT 100
[2017-10-06] MEDS: oxyCODONE 5 MG Tablet 7.5 MG PO ×2 (04:16→09:31)
[2017-10-06 06:12] LABS: Anion Gap 7 (5-15); BUN 16 mg/dL (7-18); BUN/Creat Ratio 24.4 RATIO (10-20); Calcium,Total 8.4 mg/dL (8.5-10.1); Chloride 104 mmol/L (98-107); Creatinine, Serum 0.66 mg/dL (0.55-1.02); EST Glomerular Filtration Rate 97 mL/min (>60); Est Glom Filt Rate - Afr Amer 117 mL/min (>60); Glucose 341 mg/dL (74-106); Potassium 4.2 mmol/L (3.5-5.1); Sodium Level 137 mmol/L (136-145)
--- NOTE | 2017-10-06 06:56 | PCM.PN.HOSP ---
Subjective: Patient was seen and examined. She feels much better. Has had multiple bowel movements. 2 times today. Stools small and firm. Eyes any nausea or vomiting. He is able to complete her breakfast this morning. Abdominal x-ray yesterday showed ileus with stool retention. He says he admits symmetric is no right, she is on prednisone and some permethrin creams as well as diclofenac from her primary care doctor's office prior to discharge. Medication reconciliation will be done. Vitals/I&O's: Vital Signs Temp Pulse Resp BP Pulse Ox 97.8 F 53 L 18 140/76 H 100 10/06/17 02:17 10/06/17 02:17 10/06/17 02:17 10/06/17 02:17 10/06/17 02:17 Oxygen Delivery Method Room Air Intake and Output for Last 24 Hours 10/04/17 10/05/17 10/06/17 23:59 23:59 23:59 Intake Total 500 / 500 Balance 500 / 500 General: Alert, Oriented x3, Cooperative, No apparent distress HEENT: Atraumatic, PERRLA, EOMI, Normocephalic Oral: Moist Mucosa Neck: Supple Lungs: Clear to auscultation, Normal air movement Cardiovascular: Regular rate, Regular Rhythm, Normal S1, Normal S2, No murmurs Abdomen: Bowel Sounds Present, Soft, Non Tender, Non-Distended, No Hepato-splenomegaly, Obese Extremities: No edema Skin: No rashes, No breakdown Musculoskeletal: No Tenderness to Palpation of Joints or Extremities Neurological: Cranial nerves II-XII grossly intact, Neuro grossly intact Psych/Mental Status: Normal Affect, Appropriate Laboratory Results 10/05/17 06:10: WBC 7.8, RBC 2.93 L, Hgb 8.4 L, Hct 25.4 L, MCV 86.7, MCH 28.7, MCHC 33.1, RDW 14.0, RDW Differential 42.8, Plt Count 191, MPV 10.6 10/05/17 06:10: Sodium 142, Potassium 3.1 L, Chloride 114 H, Carbon Dioxide 21.0, Anion Gap 7, BUN 19 H, Creatinine 0.44 L, Est GFR (MDRD) Af Amer 185, Est GFR (MDRD) Non-Af 153, BUN/Creatinine Ratio 43.1 H, Glucose 231 H, Calcium 6.8 L, Magnesium 2.1 10/05/17 11:56: POC Glucose 340 H 10/05/17 12:05: Hgb 10.9 L, Hct 33.5 L 10/05/17 18:18: POC Glucose 282 H 10/05/17 21:45: POC Glucose 235 H 10/06/17 05:05: Sodium 137, Potassium 4.2, Chloride 104, Carbon Dioxide 26.0, Anion Gap 7, BUN 16, Creatinine 0.66, Est GFR (MDRD) Af Amer 117, Est GFR (MDRD) Non-Af 97, BUN/Creatinine Ratio 24.4 H, Glucose 341 H, Calcium 8.4 L Current Medications Acetaminophen (Tylenol) 650 mg PO Q4H PRN PRN PRN Reason: PAIN/FEVER Al Hydroxide/Mg Hydroxide (Mylanta Ii) 30 ml PO Q6H PRN PRN PRN Reason: Dyspepsia Albuterol Sulfate (Ventolin Aerosols) 2.5 mg INHALATION Q2H PRN PRN PRN Reason: DYSPNEA/WHEEZING Aspirin (Aspirin, Baby) 81 mg PO DAILY@0800 [facility] Last Admin: 10/05/17 10:42 Dose: 81 mg Atorvastatin Calcium (Lipitor) 80 mg PO QHS [facility] Last Admin: 10/05/17 21:47 Dose: 80 mg Carvedilol (Coreg) 3.125 mg PO BID [facility] Last Admin: 10/05/17 21:48 Dose: 3.125 mg Clopidogrel Bisulfate (Plavix) 75 mg PO DAILY [facility] Last Admin: 10/05/17 10:40 Dose: 75 mg Dextrose (D50w Syringe) 0 gm IV X1 PRN; Protocol PRN Reason: Hypoglycemia Donepezil HCl (Aricept) 20 mg PO QHS [facility] Last Admin: 10/05/17 21:48 Dose: 20 mg Duloxetine HCl (Cymbalta) 60 mg PO DAILY [facility] Last Admin: 10/05/17 10:39 Dose: 60 mg Estradiol (Estradiol) 0.5 mg PO DAILY [facility] Last Admin: 10/05/17 10:39 Dose: 0.5 mg Famotidine (Pepcid) 20 mg PO BID [facility] Last Admin: 10/05/17 21:52 Dose: 20 mg Glucagon () 1 mg IM .X1 PRN PRN Reason: Hypoglycemia Ibuprofen (Motrin) 400 mg PO Q6H PRN PRN Reason: PAIN Last Admin: 10/05/17 06:15 Dose: 400 mg Insulin Glargine (Lantus (Bk)) 18 units SC QAM [facility] Last Admin: 10/05/17 11:58 Dose: Not Given Insulin Human Lispro (Humalog Kwikpen ([facility])) 0 unit SC ACHS [facility] PRN Reason: Protocol Last Admin: 10/05/17 21:46 Dose: 3 units Isosorbide Mononitrate (Imdur) 30 mg PO DAILY [facility] Last Admin: 10/05/17 10:39 Dose: 30 mg Lisinopril (Zestril) 2.5 mg PO DAILY [facility] Last Admin: 10/05/17 10:40 Dose: 2.5 mg Methadone HCl () 10 mg PO QHS [facility] Last Admin: 10/05/17 21:45 Dose: 10 mg Mirtazapine (Remeron) 15 mg PO QHS [facility] Last Admin: 10/05/17 21:49 Dose: 15 mg Modafinil (Provigil) 100 mg PO DAILY [facility] Last Admin: 10/05/17 11:43 Dose: 100 mg Morphine Sulfate () 1 - 2 mg IV Q4H PRN PRN PRN Reason: SEVERE PAIN (6-10/10) Last Admin: 10/06/17 05:29 Dose: 2 mg Nitroglycerin (Nitrostat) 0.4 mg SUBLINGUAL Q5M PRN PRN Reason: CARDIAC/CHEST PAIN Non-Formulary Medication (Non-Formulary) 0 PO DAILY [facility] Last Admin: 10/05/17 10:43 Dose: 1 Ondansetron HCl (Zofran) 4 mg IV Q6H PRN PRN PRN Reason: NAUSEA/VOMITING Oxycodone HCl (Oxyir) 7.5 mg PO Q4H PRN PRN Reason: PAIN Last Admin: 10/06/17 04:16 Dose: 7.5 mg Potassium Chloride (K-Dur) 20 meq PO DAILY [facility] Last Admin: 10/05/17 10:53 Dose: 20 meq Pramipexole Dihydrochloride (Mirapex) 0.5 mg PO QHS [facility] Last Admin: 10/05/17 21:47 Dose: 0.5 mg Pramipexole Dihydrochloride (Mirapex) 0.5 mg PO 1400 PRN Medical Necessity - Tobacco Use Smoking Status: Current every day smoker Assessment/Plan All Active Problems (Last Updated 08/05/17 @ 16:13 by Delia Kim) Shortness of breath (Acute) Chest pain (Acute) Syncope (Acute) Debility (Acute) History of cervical discectomy (Resolved) Lower limb amputation, great toe (Resolved) History of tubal ligation (Resolved) History of back surgery (Resolved) History of adenoidectomy (Resolved) History of carpal tunnel release of both wrists (Resolved) History of tonsillectomy (Resolved) Hypotension (Resolved) Dehydration (Resolved) Acute renal failure (Resolved) Hyponatremia (Resolved) Metabolic encephalopathy (Resolved) Chest pain (Resolved) STEMI (ST elevation myocardial infarction) (Resolved) Takotsubo cardiomyopathy (Resolved) Takotsubo cardiomyopathy (Resolved) 61-year-old female with multiple past medical history admitted with abdominal pain. Admitting CT scan of the abdomen showed fecal retention. History of irritable bowel syndrome on Viberzi. 1. Abdominal pain secondary to obstipation, resolving, will continue on stool softeners. 2. Hypokalemia, replace, resolved 3. Hyponatremia, resolved 4. Hypertension, controlled 5. Multiple sclerosis, continue on home medication 6. Type II DM, blood sugars are controlled, on insulin and Amaryl 7. Paroxysmal atrial fibrillation, in normal sinus rhythm 8. Tobacco use disorder, advised to quit 9. DVT prophylaxis with early ambulation/SCDs 10. Disposition: DC home today after medication reconciliation are done. Code Visit Inpatient E&M: 07230 Subs Hosp L2
[2017-10-06 08:19] VITALS: BP 130/61; PULSE 62; RESP 18; TEMP 36.7; O2SAT 95
[2017-10-06] MEDS: Insulin Lispro 100 UNIT/ML INSULN.PEN SC ×2 (08:24→11:42)
[2017-10-06] MEDS: Carvedilol 3.125 MG TABLET PO (08:25)
[2017-10-06] MEDS: DULoxetine Hcl 60 MG Capsule PO (08:26)
[2017-10-06] MEDS: NON-FORMULARY PO (08:26)
[2017-10-06] MEDS: Estradiol 0.5 MG Tablet PO (08:26)
[2017-10-06] MEDS: Isosorbide Mononitrate 30 MG Tablet PO (08:28)
[2017-10-06 08:45] LABS: ALB/GLOB Ratio 0.9 RATIO (0.9-2.4); AST(SGOT) 21 U/L (15-37); Alanine Aminotransfer ALT/SGPT 29 U/L (13-56); Albumin, Serum 2.6 g/dL (3.2-5.0); Alkaline Phosphatase 157 U/L (45-117); BUN 30 mg/dL (7-18); BUN/Creat Ratio 35.7 RATIO (10-20); Calcium,Total 8.5 mg/dL (8.5-10.1); Creatinine, Serum 0.84 mg/dL (0.55-1.02); EST Glomerular Filtration Rate 73 mL/min (>60); Est Glom Filt Rate - Afr Amer 88 mL/min (>60); Glucose 314 mg/dL (74-106); Lipase 288 U/L (73-393); Protein, Total 5.6 g/dL (6.4-8.2)
[2017-10-06 08:48] LABS: Chloride 101 mmol/L (98-107); Potassium 3.8 mmol/L (3.5-5.1); Sodium Level 130 mmol/L (136-145)
[2017-10-06 08:49] LABS: Anion Gap 7 (5-15)
--- NOTE | 2017-10-06 09:30 | PCM.DC ---
- Discharge Diagnoses Reason(s) for Visit for Discharge Instructions: Obstipation You will use the following diet at home:: Calorie/Carbohydrate Controlled (specify 1200, 1400, etc), Cardiac Your food should be the consistency of: Regular Your liquids should be the consistency of: Regular/Thin Discharge Activity: Return to Normal Activity Additional Instructions: Continue to take your medications as prescribed. You will being discharged on a short term prednisone use. Discuss with your primary care doctor about the use of Viberzi. Take a stool softner everyday until you have regular bowel movements daily and then take it as needed. Please do not take the diclofenac and baclofen you have at home. Ok to use the permetrin cream at home for itching. You need to follow-up with all your previous doctors as already scheduled. Allergies/Adverse Reactions: Allergies indomethacin [From Indocin] Allergy (Verified 07/02/17 15:21) Hives indomethacin sodium [From Indocin] Allergy (Verified 07/02/17 15:21) Hives iodine Allergy (Verified 07/02/17 15:21) Hives propoxyphene napsylate [From Darvocet-N] Allergy (Verified 07/02/17 15:21) Out of control aspirin Adverse Reaction (Verified 07/02/17 15:21) Upset Stomach when taken in high doses clindamycin Adverse Reaction (Verified 07/02/17 15:21) Nausea sumatriptan [From Imitrex] Adverse Reaction (Verified 07/02/17 15:21) Vomiting Medications to take at Discharge Aspirin E.C. [Ecotrin] 81 mg PO DAILY@0800 10/21/16 Estradiol [Estrace (G)] 0.5 mg PO DAILY 10/21/16 Glimepiride [Amaryl] 4 mg PO BID 10/21/16 Donepezil HCl [Aricept] 20 mg PO QHS 01/25/17 rosuvastatin 40 mg tablet 40 mg PO QHS 28 Days #28 04/01/17 Carvedilol [Coreg (Beta Marielle)] 3.125 mg PO BID 05/18/17 Clopidogrel Bisulfate [Plavix] 75 mg PO DAILY 05/18/17 lisinopril 2.5 mg tablet 2.5 mg PO DAILY #28 tab 05/26/17 Teriflunomide [Aubagio] 7 mg PO DAILY 06/02/17 ropinirole 0.5 mg tablet 1 mg PO QHS tab 06/22/17 Docusate Sodium [Colace] 100 mg PO DAILY PRN #30 cap 10/06/17 Duloxetine Hcl [Cymbalta] 60 mg PO DAILY #0 10/06/17 Ergocalciferol [Vitamin D] 50,000 unit PO WE 10/06/17 Ibuprofen 400 mg PO Q6H PRN PRN 10/06/17 Insulin Glargine,Hum.rec.anlog [Lantus Solostar] 18 unit SQ DAILY PRN PRN 10/06/17 Isosorbide Mononitrate [Isosorbide Mononitrate ER] 30 mg PO DAILY 10/06/17 Loperamide [Imodium] 2 mg PO Q6H PRN PRN 10/06/17 Mirtazapine [Remeron] 15 mg PO QHS 10/06/17 Oxycodone HCl/Acetaminophen [Percocet 7.5-325 mg Tablet] 1 - 2 tab PO Q4H PRN PRN 10/06/17 Potassium Chloride [K-Dur] 20 meq PO DAILY 10/06/17 Prednisone 40 mg PO DAILY 5 Days #10 tab 10/06/17 Senna [Senokot] 1 tab PO BID #60 tab 10/06/17 The following prescriptions were given: Docusate Sodium [Colace] 100 mg PO DAILY PRN #30 cap PRN Reason: Constipation Prednisone 40 mg PO DAILY 5 Days #10 tab Senna [Senokot] 1 tab PO BID #60 tab Primary Care Physician: Matthew Noble Chi, MD [Primary Care Provider] - Please follow up with your Primary Care Physician in: in 1-2 weeks Proposed Discharge Date: 10/06/17
[2017-10-06] MEDS: Clopidogrel Bisulfate 75 MG Tablet PO (09:32)
[2017-10-06] MEDS: Famotidine 20 MG Tablet PO (09:32)
[2017-10-06] MEDS: Aspirin 81 MG TAB.CHEW PO (09:32)
[2017-10-06 11:23] LABS: Absolute Neutrophil Count 20.5 X10^3/uL (2.0-7.7); Hematocrit 38.1 % (37-47); Hemoglobin 12.8 g/dl (12.0-15.0); Lymphocyte # 0.65 X10^3/ul (4.0); Mean Corp Hgb Conc 33.6 g/gl (32-36); Mean Corpuscular Hgb 28.2 pg (27.0-32.0); Mean Corpuscular Volume 83.9 fL (81-99); Mean Platelet Vol. 10.5 fl (6.2-12.0); Monocyte% 1.4 % (0-10); Neutrophil # 20.52 X10^3/uL (2.7-7.7); Neutrophil % 95.5 % (47-70); POSITIVE COUNT NO; POSITIVE MORPHOLOGY NO; Platelet Count 308 K/mm3 (150-450); RBC Distribution Width CV 14.1 % (11.6-14.6); RBC Distribution Width SD 43.1 fl (35.1-43.9); Red Blood Count 4.54 M/mm3 (4.2-5.4); White Blood Count 21.5 K/mm3 (4.4-11.0)
[2017-10-06 11:24] LABS: Absolute Lymphocyte Count 0.65 X10^3/ul (0.83-4.51); Differential Comment SCANNED; Differential Indicated SCAN CRITERIA MET; Monocyte# 0.31 X10^3/uL; POSITIVE DIFFERENTIAL YES
[2017-10-06] MEDS: Lisinopril 2.5 MG Tablet PO (11:35)
--- NOTE | 2017-10-06 11:46 | PCM.DC.SUM ---
Discharge Date and Diagnosis Date of Admission: 10/04/17 Date of Discharge: 10/06/17 - Primary Discharge Diagnosis Abdominal pain Obstipation Hypokalemia - Secondary Discharge Diagnosis Chronic Problems (Last Updated 08/05/17 @ 16:13 by Delia Kim) Takotsubo syndrome (Chronic) Non-rheumatic tricuspid valve insufficiency (Chronic) Dilated cardiomyopathy (Chronic) Atherosclerotic heart disease of [place] coronary artery without angina pectoris (Chronic) Typical atrial flutter (Chronic) Status post placement of implantable loop recorder (Chronic) Implant 07/09 Paroxysmal atrial fibrillation (Chronic) Left ventricular hypertrophy (Chronic) Nicotine abuse (Chronic) Chronic systolic (congestive) heart failure (Chronic) History of coronary artery stent placement (Chronic) LHC w/PCI, aspiration thrombectomy and FEROZ to mid LAD 04/08/16 BRYAN (obstructive sleep apnea) (Chronic) Ischemic cardiomyopathy (Chronic) Frequent falls (Chronic) Diabetes mellitus type 2 in nonobese (Chronic) Apical mural thrombus with acute AK (Chronic) Multiple sclerosis, relapsing-remitting (Chronic) COPD (chronic obstructive pulmonary disease) (Chronic) HTN (hypertension) (Chronic) Hyperlipemia (Chronic) Cervical spinal stenosis (Chronic) Depression (Chronic) Irritable bowel syndrome with diarrhea (Chronic) Vitamin B12 deficiency (Chronic) Menopausal disorder (Chronic) Hypomagnesemia (Chronic) Restless leg syndrome (Chronic) CAD (coronary artery disease) (Chronic) Anxiety (Chronic) Tobacco abuse (Chronic) Iron deficiency (Chronic) PAF (paroxysmal atrial fibrillation) (Chronic) Radiculitis, thoracic (Chronic) improved with increase in the [place] Hospital Course and Treatment Imaging Results: Clinical Impression(s) from Imaging Studies Chest X-Ray 10/04/17 14:37 IMPRESSION: No acute cardiopulmonary abnormalities. Electronically Signed: Amy Martinez MD at 15:17 EDT Tel Direct: [phone], Service support , Abdomen X-Ray 10/05/17 09:13 IMPRESSION: Small bowel ileus, likely due to retained stool in the colon Electronically Signed: Cliff Moreau MD at 14:11 EDT , Service support , None Operations: None Procedures: None Summary of Care Provided: The patient is a 61 year old F with multiple medical comorbidities, recently discharged from [facility], history of irritable bowel syndrome on Viberzi complains of abdominal pain. Admitting CT scan of the abdomen and pelvis showed fecal impaction. Patient was admitted to the floor had an a bowel regiment with sepsis. Repeat abdominal KUB still showed retained stools. Patient continued to improve, was discharged home on stool softeners. Every visit was put on hold. She was found to be hypokalemic and that was replaced in the hospital stay. Vitals remained stable. Patient will follow up with her primary care doctor in 2 weeks. She was previously on permethrin cream as well as prednisone for itching secondary to wood mites. She was discharged on a short course of steroids. Discharge Diet: Low fat/ Low Cholesterol, 2000 Calorie Control Diet, 2000 mg Sodium Diet Discharge Activity: Return to Normal Activity Home Medications: Medications to take at Discharge Aspirin E.C. [Ecotrin] 81 mg PO DAILY@0800 10/21/16 Estradiol [Estrace (G)] 0.5 mg PO DAILY 10/21/16 Glimepiride [Amaryl] 4 mg PO BID 10/21/16 Donepezil HCl [Aricept] 20 mg PO QHS 01/25/17 rosuvastatin 40 mg tablet 40 mg PO QHS 28 Days #28 04/01/17 Carvedilol [Coreg (Beta Marielle)] 3.125 mg PO BID 05/18/17 Clopidogrel Bisulfate [Plavix] 75 mg PO DAILY 05/18/17 lisinopril 2.5 mg tablet 2.5 mg PO DAILY #28 tab 05/26/17 Teriflunomide [Aubagio] 7 mg PO DAILY 06/02/17 ropinirole 0.5 mg tablet 1 mg PO QHS tab 06/22/17 Docusate Sodium [Colace] 100 mg PO DAILY PRN #30 cap 10/06/17 Duloxetine Hcl [Cymbalta] 60 mg PO DAILY #0 10/06/17 Ergocalciferol [Vitamin D] 50,000 unit PO WE 10/06/17 Ibuprofen 400 mg PO Q6H PRN PRN 10/06/17 Insulin Glargine,Hum.rec.anlog [Lantus Solostar] 18 unit SQ DAILY PRN PRN 10/06/17 Isosorbide Mononitrate [Isosorbide Mononitrate ER] 30 mg PO DAILY 10/06/17 Loperamide [Imodium] 2 mg PO Q6H PRN PRN 10/06/17 Mirtazapine [Remeron] 15 mg PO QHS 10/06/17 Oxycodone HCl/Acetaminophen [Percocet 7.5-325 mg Tablet] 1 - 2 tab PO Q4H PRN PRN 10/06/17 Potassium Chloride [K-Dur] 20 meq PO DAILY 10/06/17 Prednisone 40 mg PO DAILY 5 Days #10 tab 10/06/17 Senna [Senokot] 1 tab PO BID #60 tab 10/06/17 Following Prescrptions Were Given to Patient: Docusate Sodium [Colace] 100 mg PO DAILY PRN #30 cap PRN Reason: Constipation Prednisone 40 mg PO DAILY 5 Days #10 tab Senna [Senokot] 1 tab PO BID #60 tab Primary Care Physician: Matthew Noble Chi, MD [Primary Care Provider] - Please follow up with your Primary Care Physician in: in 1-2 weeks Disposition: Home with Home Health Minutes spent on discharge:: 40 Patient Condition:: Stable Medical Necessity - Tobacco Use Smoking Status: Current every day smoker Meaningful Use Info Meaningful Use Diagnoses (Choose all that apply): None applicable Code Visit Inpatient E&M: 24345 Disch Hosp
[2017-10-06 12:05] LABS: Mucous, Urine 0 SEEN /hpf (<or=2+); Red Blood Cells-Urine 0 SEEN /hpf (0-5)
[2017-10-06] MEDS: Modafinil 200 MG Tablet 100 MG PO (12:13)
[2017-10-06 13:00] VITALS: BP 121/67; PULSE 58; RESP 18; TEMP 36.4; O2SAT 100
[2017-10-06 13:15] LABS: Bacteria RARE /hpf (None Seen); Color, Urine Yellow (Yellow); Glucose, Dipstick 50 mg/dl (Normal); Ketone-Dipstick 5 mg/dl (Negative); Leukocyte Esterase-Dipstick 25 /ul (Negative); Nitrite-Dipstick Negative (Negative); Occult Blood-Urine 10 /ul (Negative); Protein-Dipstick 15 mg/dl (Negative); Squamous Epithelial Cells - UA 0-5 SEEN /hpf (5-10); Urine Bilirubin Dipstick Negative (Negative); Urine Clarity Clear (Clear); Urine Urobilinogen Normal (Normal); Urine pH 6.5 (5.0 - 8.0); White Blood Cells 0-5 SEEN /hpf (0-5)
[2017-10-06 13:25] VITALS: BP 121/67; PULSE 58; RESP 18; TEMP 36.4; O2SAT 100
--- NOTE | 2017-10-06 13:25 | CASEMGMT ---
Social Work Note Pt is being discharged today. This worker placed a call to pt's [employer] Executive Meeting Manager Dung Wolf and left her a message updating her that pt will be discharging today. SW and JEAN MARIE RANDHAWA was informed that pt wanted to speak with case management. This worker and JEAN MARIE Cormier in to speak with pt. Pt denied additional needs or concerns. RN SYDNEE Cormier updated pt's Home Health Care, [facility] that pt will be discharged tonight. As noted above, this worker placed a call to [employer] CM Dung Wolf and left a message for her updating her that pt will be discharged today. PRAVIN updated pt of this. Plan: Discharge home with resumption of Home Health Care through [facility], [employer] and continued counseling services through [facility]. Valerie Nichols LUMBER CHECKER, DIRECTOR TRAFFIC AND PLANNING
[2017-10-07 17:41] LABS: Bedside Glucose 250 mg/dL (70-110)
[2017-10-08 14:50] LABS: Bedside Glucose 286 mg/dL (70-110)
[2017-10-08 14:52] LABS: Bedside Glucose 248 mg/dL (70-110)
[2017-10-08 15:31] LABS: Bedside Glucose 316 mg/dL (70-110)
== END 2017-10-06 13:30 | disposition home or self-care (01) | DRG 389 ==
LOC: ED 18:14 → MS3 10-05 08:28
PROVIDERS: Admitting Provider Internal Medicine; Emergency Provider Emergency Medicine; Family Provider Family Medicine Geriatric Medicine; PCP Family Medicine Geriatric Medicine; Visit Provider Internal Medicine
DX: K56.41 Fecal impaction (principal); E87.1 Hypo-osmolality and hyponatremia; R10.9 Unspecified abdominal pain; G35 Multiple sclerosis; E87.6 Hypokalemia; I95.9 Hypotension, unspecified; K58.1 Irritable bowel syndrome with constipation; I48.0 Paroxysmal atrial fibrillation; D64.9 Anemia, unspecified; E11.9 Type 2 diabetes mellitus without complications; F17.200 Nicotine dependence, unspecified, uncomplicated
CPT/HCPCS: 36415; 71045; 74019; 74176; 80048; 80053; 81001; 82962; 83690; 83735; 85014; 85018; 85025; 85027; 85610; 85730; 96361; 96365; 96375; 97161; 97165; 99284; J7030; A4216; J2405

== ENCOUNTER 2017-10-08 12:21 | Emergency (ER) | payer MEDICARE, MEDICAID, SELFPAY ==
[2016-07-13 11:45] VITALS: BMI 31.4
[2017-10-08 12:22] VITALS: BP 171/71; PULSE 78; RESP 17; TEMP 36.7; O2SAT 100; BMI 26.9
--- NOTE | 2017-10-08 12:38 | RAD_ITS ---
STUDY: X-RAY - ACUTE ABDOMINAL SERIES REASON FOR EXAM: Female, 61 years old. Abdominal pain and constipation. TECHNIQUE: Single view of the chest. Supine and upright, 2 view(s) of the abdomen were obtained. COMPARISON: Prior chest radiograph of June 03, 2017 and abdominal radiographs of October 05, 2017. FINDINGS: Implantable loop recorder projects over the medial left upper quadrant. The lungs are clear and expanded. Normal size heart. Normal mediastinum and sara. Normal visualized pulmonary arteries. There is atherosclerotic calcification of the aortic arch with tortuosity. Cervical spine fusion hardware partly included in the [id number]. The stomach is nondistended. Mild nonspecific increased small bowel gas without small bowel distention. Few scattered air-fluid levels. There is scattered gas present throughout the colon without moderate visualized stool. Negative for free air. Status post lower lumbar laminectomy. Dextroscoliosis and degenerative changes of the lumbar spine. RAD/Acute Abdomen Inc Chest IMPRESSION: No acute cardiopulmonary findings or changes. Moderate stool present throughout the colon. Mild nonspecific increase in small bowel gas without small bowel distention. Implantable loop recorder present. Electronically Signed: Gabriela Howard MD at 17:01 EDT , Service support ,
--- NOTE | 2017-10-08 12:39 | ED.VISSUMM ---
- ER Visit Summary Date of Service: 10/08/17 Chief Complaint: Abdominal pain History of Present Illness: The patient is a 61 F who presents with abdominal pain and cramping that became worse again today. Patient was recently admitted to the hospital here and discharged 2 days ago. Patient was being treated for constipation. Patient describes her pain as cramping. Patient denies any nausea or vomiting. Patient denies any melena or hematochezia. Patient denies any urinary complaints. Patient denies any fevers or chills. Patient denies any chest pain or shortness of breath. Physical Examination: Vital signs are stable. Patient is afebrile. Patient is in no acute distress. Heart was regular rate and rhythm. Lungs are clear and equal bilaterally. Abdomen is soft. There is mild diffuse tenderness. There is no rebound or guarding noted. Cranial nerves II through XII are intact. There are no focal motor or sensory deficits noted. The remaining physical exam is within normal limits. Test Results: CBC showed leukocytosis of 19.3. This was also elevated on her last admission. Comprehensive metabolic profile showed a slightly low sodium of 132, elevated glucose of 384, slightly elevated BUN of 25, slightly elevated alk phos of 145, and slightly elevated lipase of 420. Acute abdominal x-rays were obtained. There is no evidence of bowel obstruction or perforation. Emergency Department Course and Treatment: Patient was given Bentyl initially. Patient had minimal relief with this. Patient was given a dose of [place] here. Patient was instructed to continue with her laxatives at home. Patient was instructed to follow-up with her primary care physician in 3-5 days. Patient understood and was agreeable with the plan. All questions were answered. Disposition: Discharged home Impression: Abdominal pain, constipation This note was generated with Near[employer]k dictation software. It may contain incorrect words, spelling, and punctuation that were not noted in review of the chart prior to signing ED Disposition - Plan for ED Patient: Disposition: Home or Assisted Living Chief Complaint: Abd Pain Diagnosis: Abdominal pain in female patient, Constipation Instructions: ED Constipation Referrals: Matthew Noble Chi, MD [Primary Care Provider] -
[2017-10-08 13:02] LABS: Absolute Lymphocyte Count 0.54 X10^3/ul (0.83-4.51); Absolute Neutrophil Count 18.5 X10^3/uL (2.0-7.7); Eosinophil# 0.01 X10^3/uL; Eosinophils% 0.1 % (0-5); Hematocrit 36.8 % (37-47); Lymphocyte # 0.54 X10^3/ul (4.0); Lymphocyte % 2.8 % (19-41); Mean Corp Hgb Conc 32.6 g/gl (32-36); Mean Platelet Vol. 9.8 fl (6.2-12.0); Monocyte# 0.22 X10^3/uL; Monocyte% 1.1 % (0-10); Neutrophil # 18.49 X10^3/uL (2.7-7.7); Neutrophil % 95.8 % (47-70); Platelet Count 288 K/mm3 (150-450); RBC Distribution Width CV 14.4 % (11.6-14.6); RBC Distribution Width SD 45.2 fl (35.1-43.9); Red Blood Count 4.28 M/mm3 (4.2-5.4); White Blood Count 19.3 K/mm3 (4.4-11.0)
[2017-10-08 13:04] LABS: Differential Indicated SCAN CRITERIA MET; POSITIVE COUNT NO; POSITIVE DIFFERENTIAL YES; POSITIVE MORPHOLOGY NO
[2017-10-08 13:18] LABS: AST(SGOT) 19 U/L (15-37); Alanine Aminotransfer ALT/SGPT 31 U/L (13-56); Albumin, Serum 2.9 g/dL (3.2-5.0); Alkaline Phosphatase 145 U/L (45-117); Anion Gap 9 (5-15); BUN 25 mg/dL (7-18); BUN/Creat Ratio 28.3 RATIO (10-20); Calcium,Total 8.6 mg/dL (8.5-10.1); Chloride 98 mmol/L (98-107); Creatinine, Serum 0.88 mg/dL (0.55-1.02); EST Glomerular Filtration Rate 69 mL/min (>60); Est Glom Filt Rate - Afr Amer 83 mL/min (>60); Estimated Creatinine Clearance 66.87 ml/min; Glucose 384 mg/dL (74-106); Lipase 420 U/L (73-393); Potassium 4.1 mmol/L (3.5-5.1); Protein, Total 5.9 g/dL (6.4-8.2); Sodium Level 132 mmol/L (136-145)
[2017-10-08 13:26] LABS: Differential Comment SCANNED
[2017-10-08] MEDS: Dicyclomine 20 MG/2 ML Vial IM (13:56)
--- NOTE | 2017-10-08 14:46 | CASEMGMT ---
Social Work Note Referral from shake backboard notcher, Eusebia. Pt was just discharged from the hospital and has had several ED visits this year. Review chart and pt has had 10 ED visits in 2018, 5 of which did not result in admissions. Face to face with the pt and she is tearful and curled up in her bed. Introduced self and role at [facility]. The pt reports that she is in severe pain and states she is not here for pain meds. She confirms she is linked with palliative care services for pain management, and claims that she called [facility], to tell her about the pain she was having and they could not fill the script any sooner than tomorrow, 10/09. Claims that she took the last of her prescription last evening at midnight. Her aides through [facility] and her CM - Dung - were out to her home yesterday to assess. She claims that she has all of her necessary DME in the home to manage once she returns. [facility] also came out yesterday and managed her med box. States that all resources needed at discharge have followed up with her and her only issue is the pain. Educate to the importance of taking pain medications as prescribed. Pt states that the pain she is having is new and not what she is prescribed pain meds for. Claims that palliative care prescribes them for her headaches, and she is now having abdominal pain she has not had in the past. Refer to her chart and indicate the dates she has presented with abdominal pain. Pt acknowledges, but states it has not been this bad. Emotional support provided. Pt denies needs at this time. Encourage to follow up with counseling services and to touch base with Kathy at [facility] tomorrow to check in with her pain. Understanding expressed. Will notify palliative care and case management rn of ED visit. Malini Mccarthy, RIBBING MACHINE OPERATOR, TAKER OFF [employer]IL[employer]
[2017-10-08] MEDS: HYDROcodone Bitartrate/Apap 5/325 Tablet PO (15:43)
[2017-10-08 16:12] VITALS: BP 104/63; PULSE 79; RESP 16; O2SAT 99
--- NOTE | 2017-10-08 16:14 | ED.RN ---
PT REQUESTING PRESCRIPTION FOR PAIN MEDICATION. DR. YANES AWARE AND STATES SHE MUST FOLLOW UP WITH PALLIATIVE CARE FOR THAT. PT MADE AWARE. REVIEWED D/C INSTRUCTIONS, FOLLOW UP CARE, AND S/S THAT WOULD WARRANT A RETURN TO THE ED WITH PT. PT VERBALIZED AN UNDERSTANDING AND DENIES FURTHER QUESTIONS FOR THIS RN. PT SKIN P/W/D, RESP EVEN AND UNLABORED, PT A7o X 3, NO DISTRESS NOTED. PT AMBULATED OUT OF ED, GAIT STEADY.
== END 2017-10-08 16:16 | disposition home or self-care (01) ==
PROVIDERS: Emergency Provider Emergency Medicine; Family Provider Family Medicine Geriatric Medicine; PCP Family Medicine Geriatric Medicine
DX: R10.9 Unspecified abdominal pain (principal); K59.00 Constipation, unspecified; E87.1 Hypo-osmolality and hyponatremia; R74.8 Abnormal levels of other serum enzymes; E11.9 Type 2 diabetes mellitus without complications; I10 Essential (primary) hypertension; I48.91 Unspecified atrial fibrillation; Z72.0 Tobacco use; Z79.82 Long term (current) use of aspirin; Z79.84 Long term (current) use of oral hypoglycemic drugs; Z79.02 Long term (current) use of 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/antiplatelets; Z79.899 Other long term (current) drug therapy; Z89.412 Acquired absence of left great toe
CPT/HCPCS: 74022; 80053; 83690; 85025; 96372; 99285; A4216

== ENCOUNTER → 2017-10-12 14:27 | Outpatient (CLI) | payer MEDICARE, MEDICAID, SELFPAY ==
[2016-07-13 11:45] VITALS: BMI 31.4
--- NOTE | 2017-10-12 14:30 | RAD_ITS ---
STUDY: X-RAY - ABDOMEN/PELVIS REASON FOR EXAM: Female, 61 years old. Constipation. One-week history of abdominal pain. TECHNIQUE: AP supine and upright views of the abdomen and pelvis. COMPARISON: None. FINDINGS: Normal visualized lung bases. There is an abundance of fecal material throughout the colon. There is no demonstrated free abdominal air. The visualized liver, spleen and kidneys are grossly normal in size and morphology. Normal soft tissue structures. There are diffuse degenerative changes of the visualized lumbar spine. Dextroscoliosis. Prior laminectomy in the lower lumbar spine. RAD/Abd Inc Decub and/or Erect IMPRESSION: Large amount of fecal material is seen in the colon. Electronically Signed: Daljit Jordan MD at 15:16 EDT Tel [phone], Service support ,
[2017-10-12 17:28] LABS: Absolute Neutrophil Count 7.6 X10^3/uL (2.0-7.7); Basophil# 0.02 X10^3/uL; Basophil% 0.2 % (0-1); Eosinophil# 0.09 X10^3/uL; Hematocrit 31.8 % (37-47); Hemoglobin 10.5 g/dl (12.0-15.0); Lymphocyte % 10.6 % (19-41); Mean Corpuscular Hgb 28.6 pg (27.0-32.0); Mean Corpuscular Volume 86.6 fL (81-99); Mean Platelet Vol. 10.4 fl (6.2-12.0); Monocyte# 0.73 X10^3/uL; Monocyte% 7.7 % (0-10); Neutrophil # 7.56 X10^3/uL (2.7-7.7); Neutrophil % 80.1 % (47-70); Platelet Count 279 K/mm3 (150-450); RBC Distribution Width CV 14.1 % (11.6-14.6); RBC Distribution Width SD 43.2 fl (35.1-43.9); Red Blood Count 3.67 M/mm3 (4.2-5.4); White Blood Count 9.4 K/mm3 (4.4-11.0)
[2017-10-12 17:31] LABS: POSITIVE COUNT NO; POSITIVE DIFFERENTIAL NO; POSITIVE MORPHOLOGY NO
[2017-10-12 17:40] LABS: ALB/GLOB Ratio 0.8 RATIO (0.9-2.4); AST(SGOT) 29 U/L (15-37); Alanine Aminotransfer ALT/SGPT 33 U/L (13-56); Albumin, Serum 2.6 g/dL (3.2-5.0); Alkaline Phosphatase 118 U/L (45-117); Amylase 36 U/L (25-115); Anion Gap 7 (5-15); BUN 22 mg/dL (7-18); BUN/Creat Ratio 22.4 RATIO (10-20); Calcium,Total 8.8 mg/dL (8.5-10.1); Chloride 101 mmol/L (98-107); Creatinine, Serum 0.98 mg/dL (0.55-1.02); EST Glomerular Filtration Rate 61 mL/min (>60); Est Glom Filt Rate - Afr Amer 73 mL/min (>60); Globulin 3.3 g/dL (2.2-4.2); Glucose 298 mg/dL (74-106); Lipase 217 U/L (73-393); Potassium 3.6 mmol/L (3.5-5.1); Protein, Total 5.9 g/dL (6.4-8.2); Sodium Level 131 mmol/L (136-145)
== END ==
PROVIDERS: Family Provider Family Medicine Geriatric Medicine; PCP Family Medicine Geriatric Medicine; Visit Provider Family Medicine Geriatric Medicine
DX: K59.00 Constipation, unspecified (principal); N39.0 Urinary tract infection, site not specified; R10.9 Unspecified abdominal pain; R53.1 Weakness
CPT/HCPCS: 36415; 74019; 80053; 82150; 83690; 85025; 87086; 87088

== ENCOUNTER 2017-10-13 01:24 | Emergency (ER) | payer MEDICARE, MEDICAID, SELFPAY ==
[2016-07-13 11:45] VITALS: BMI 31.4
[2017-10-13 01:25] VITALS: BP 110/79; PULSE 76; RESP 18; TEMP 36.9; O2SAT 99; BMI 26.9
--- NOTE | 2017-10-13 02:12 | ED.DCSUM_ITS ---
- ER Visit Summary Date of Service: 10/13/17 Chief Complaint: GI bleeding History of Present Illness: The patient is a 61 F with suspected GI bleeding. The patient has been dealing with constipation. She was started on GoLYTELY and this evening she passed a black thick stool. She was concerned for bleeding. She did not see bright red blood. She has no history of this. She also reports diffuse abdominal cramping since taking the GoLYTELY. Physical Examination: Afebrile and vital signs unremarkable. The patient is alert and oriented. No acute distress. Heart regular. Lungs clear. Abdomen soft and nontender. Skin appears normal without pallor or jaundice. Test Results: We will check labs, urinalysis, coags, and fecal occult blood test. Emergency Department Course and Treatment: Patient received fluids, morphine, and Zofran while awaiting results. Patient had a bowel movement here. It was not black or tarry. No blood was noted. She did test Hemoccult positive however. Hemoccult stable at 10.9. CMP, lipase, coags largely unremarkable except for glucose of 396. She did have fluids here. Urinalysis shows contamination. Patient has no urinary symptoms. Repeat exam shows that the patient has no new or worsening issues. Abdomen is soft and nontender. No change in her bowel movements. I spoke with her PCP who will follow up with her in the morning. Treatment Plan: Pepcid twice daily Disposition: Discharged Impression: 1. Hemoccult-positive stool This note was generated with Polyplus-transfection dictation software. It may contain incorrect words, spelling, and punctuation that were not noted in review of the chart prior to signing ED Disposition - Plan for ED Patient: Chief Complaint: GI Bleed Referrals: Matthew Noble Chi, MD [Primary Care Provider] -
[2017-10-13 02:31] LABS: Absolute Lymphocyte Count 0.35 X10^3/ul (0.83-4.51); Absolute Neutrophil Count 9.1 X10^3/uL (2.0-7.7); Basophil# 0.01 X10^3/uL; Basophil% 0.1 % (0-1); Hematocrit 32.8 % (37-47); Hemoglobin 10.9 g/dl (12.0-15.0); Lymphocyte # 0.35 X10^3/ul (4.0); Lymphocyte % 3.6 % (19-41); Mean Corp Hgb Conc 33.2 g/gl (32-36); Mean Corpuscular Volume 87.2 fL (81-99); Mean Platelet Vol. 10.2 fl (6.2-12.0); Monocyte# 0.15 X10^3/uL; Monocyte% 1.6 % (0-10); Neutrophil # 9.11 X10^3/uL (2.7-7.7); Neutrophil % 94.4 % (47-70); Platelet Count 265 K/mm3 (150-450); RBC Distribution Width CV 14.5 % (11.6-14.6); RBC Distribution Width SD 44.3 fl (35.1-43.9); Red Blood Count 3.76 M/mm3 (4.2-5.4); White Blood Count 9.7 K/mm3 (4.4-11.0)
[2017-10-13 02:32] LABS: Differential Indicated SCAN CRITERIA MET; POSITIVE COUNT NO; POSITIVE DIFFERENTIAL YES; POSITIVE MORPHOLOGY NO
[2017-10-13 02:40] LABS: ALB/GLOB Ratio 0.7 RATIO (0.9-2.4); AST(SGOT) 41 U/L (15-37); Alanine Aminotransfer ALT/SGPT 35 U/L (13-56); Albumin, Serum 2.5 g/dL (3.2-5.0); Alkaline Phosphatase 126 U/L (45-117); Anion Gap 6 (5-15); BUN 20 mg/dL (7-18); BUN/Creat Ratio 21.8 RATIO (10-20); Calcium,Total 8.4 mg/dL (8.5-10.1); Chloride 102 mmol/L (98-107); Creatinine, Serum 0.92 mg/dL (0.55-1.02); EST Glomerular Filtration Rate 66 mL/min (>60); Est Glom Filt Rate - Afr Amer 80 mL/min (>60); Estimated Creatinine Clearance 57.05 ml/min; Globulin 3.6 g/dL (2.2-4.2); Glucose 396 mg/dL (74-106); Lipase 212 U/L (73-393); Potassium 4.4 mmol/L (3.5-5.1); Protein, Total 6.1 g/dL (6.4-8.2); Sodium Level 131 mmol/L (136-145)
[2017-10-13 02:40] LABS: Bacteria 0 SEEN /hpf (None Seen); Mucous, Urine 0 SEEN /hpf (<or=2+)
[2017-10-13] MEDS: 0.9% Normal Saline 1,000 ML 1000 ML IV (02:40)
[2017-10-13 02:41] LABS: Color, Urine Yellow (Yellow); Glucose, Dipstick 1000 mg/dl (Normal); Ketone-Dipstick 15 mg/dl (Negative); Leukocyte Esterase-Dipstick 500 /ul (Negative); Nitrite-Dipstick Negative (Negative); Occult Blood-Urine 10 /ul (Negative); Protein-Dipstick 15 mg/dl (Negative); Specific Gravity, Urine 1.015 (1.002-1.030); Urine Bilirubin Dipstick Negative (Negative); Urine Clarity Sl. Cloudy (Clear); Urine Urobilinogen Normal (Normal); Urine pH 6.5 (5.0 - 8.0)
[2017-10-13] MEDS: Ondansetron 4 MG/2 ML Vial IV (02:41)
[2017-10-13] MEDS: Morphine 4 MG/ML Syringe IV (02:41)
[2017-10-13 02:48] LABS: Red Blood Cells-Urine 0-5 SEEN /hpf (0-5); Squamous Epithelial Cells - UA 10-25 SEEN /hpf (5-10)
[2017-10-13 02:49] LABS: White Blood Cells 10-25 SEEN /hpf (0-5)
[2017-10-13 02:57] LABS: Prothrombin Time (Protime)PT. 12.8 SECONDS (11.7-14.9)
[2017-10-13 02:58] LABS: Partial Thromboplast Time 24.2 Seconds (24.1-36.2)
--- NOTE | 2017-10-13 04:43 | ED.DEP ---
ED Disposition - Plan for ED Patient: Chief Complaint: GI Bleed Instructions: When You Have Gastrointestinal (GI) Bleeding Prescriptions: Famotidine [Pepcid] 20 mg PO BID #28 tab Referrals: Matthew Noble Chi, MD [Primary Care Provider] -
[2017-10-13 05:29] VITALS: BP 187/84; PULSE 71; RESP 16; O2SAT 99
== END 2017-10-13 05:37 | disposition home or self-care (01) ==
LOC: ED 02:32
PROVIDERS: Emergency Provider Emergency Medicine; Family Provider Family Medicine Geriatric Medicine; PCP Family Medicine Geriatric Medicine
DX: R19.5 Other fecal abnormalities (principal); K59.00 Constipation, unspecified; E11.9 Type 2 diabetes mellitus without complications; I10 Essential (primary) hypertension; I48.91 Unspecified atrial fibrillation; F32.9 Major depressive disorder, single episode, unspecified; F41.9 Anxiety disorder, unspecified; Z72.0 Tobacco use; Z79.02 Long term (current) use of 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/antiplatelets; Z79.82 Long term (current) use of aspirin; Z79.4 Long term (current) use of insulin; Z79.899 Other long term (current) drug therapy; Z86.73 Personal history of transient ischemic attack (TIA), and cerebral infarction without residual deficits
CPT/HCPCS: 80053; 81001; 82274; 83690; 85025; 85610; 85730; 96361; 96374; 96375; 99285; J7030; A4216; J2405

== ENCOUNTER 2017-10-16 17:19 | Emergency (ER) | payer MEDICARE, MEDICAID, SELFPAY ==
[2016-07-13 11:45] VITALS: BMI 31.4
[2017-10-16 17:20] VITALS: BP 150/74; PULSE 77; RESP 13; TEMP 36.8; O2SAT 99; BMI 29.2
--- NOTE | 2017-10-16 18:28 | EKG12_ITS ---
Test Reason : SYNCOPE Blood Pressure : / mmHG Vent. Rate : 083 BPM Atrial Rate : 083 BPM P-R Int : 152 ms QRS Dur : 098 ms QT Int : 404 ms P-R-T Axes : 098 -45 062 degrees QTc Int : 474 ms Normal sinus rhythm Left axis deviation Inferior infarct (cited on or before 21-OCT-2016) Anterior infarct (cited on or before 21-OCT-2016) Abnormal ECG Confirmed by ALLAN WITT, DORYS ([id number]), content editor JB DOVE ([id number]) on 10/20/2017 10:47:49 AM Referred By: Matthew Noble Confirmed By:DORYS LEMUS MD
--- NOTE | 2017-10-16 18:28 | CT_ITS ---
STUDY: CT ABDOMEN AND PELVIS WITHOUT CONTRAST REASON FOR EXAM: Female, 61 years old. Abdominal pain RADIATION DOSAGE (If Supplied By Facility): CTDIvol = ( ) mGy, DLP = ( ) mGycm TECHNIQUE: Transaxial images were obtained from the dome of the diaphragm to the symphysis pubis without oral contrast, and without intravenous contrast. Sagittal and coronal images were reconstructed. Individualized dose optimization techniques were used for this CT. COMPARISON: CT scan abdomen and pelvis October 02, 2017 FINDINGS: The visualized lung bases are unremarkable. Are coronary calcifications Normal liver. Normal gallbladder and extrahepatic biliary system. Normal spleen. Normal pancreas. Normal bilateral adrenal glands. Normal right kidney. Normal left kidney. Normal visualized stomach. There mildly distended loops of small bowel. There is a thickened appearance of the wall of the duodenum measuring up to 9.4 mm. There is mildly distended appearance of the second and first part of the duodenum. There is a high riding appearance of the ascending colon. There is a equal or slightly greater caliber stool filled colon. Normal colon. There is non-visualization of the appendix. The aorta is partially calcified. There is calcification of the takeoff of the bilateral renal arteries Normal inferior vena cava. Normal retroperitoneum. Normal urinary bladder. There is atrophy of the uterus. Normal abdominal wall. There is multilevel degenerative change of the thoracolumbar spine. Significant at the level of L1-L2 where there is severe disc space narrowing severe neural foramina narrowing severe central stenosis. At the level of L3-L4 there is vacuum phenomena and severe neural foraminal narrowing severe central stenosis facet arthropathy. At L4-L5 there is been prior laminectomy and fusion. There is moderate to severe left neural foramina narrowing minimal central stenosis. At L5-S1 there is facet arthropathy and minimal neural foraminal narrowing and no significant central stenosis. CT/Abdomen/Pel W ORAL Cont Only IMPRESSION: Findings are suspicious for ileus. There are multiple distended loops of small bowel present without a clear-cut transition point. There is moderate stool in the colon. There is a thick walled appearance of the duodenum which is similar to the prior study see image #63 axial view. Findings are suspicious for duodenitis. Consider follow-up endoscopy. Advanced degenerative change of the thoracolumbar spine. Electronically Signed: Kelley Feliciano MD at 20:45 EDT Tel , Service support ,
[2017-10-16] MEDS: LORazepam 2 MG/ML Syringe 1 MG IV (19:02)
[2017-10-16 19:12] LABS: Absolute Neutrophil Count 9.2 X10^3/uL (2.0-7.7); Basophil# 0.03 X10^3/uL; Basophil% 0.3 % (0-1); Eosinophil# 0.13 X10^3/uL; Eosinophils% 1.1 % (0-5); Hematocrit 36.7 % (37-47); Hemoglobin 12.3 g/dl (12.0-15.0); Mean Corp Hgb Conc 33.5 g/gl (32-36); Mean Corpuscular Hgb 29.1 pg (27.0-32.0); Mean Corpuscular Volume 86.8 fL (81-99); Mean Platelet Vol. 9.3 fl (6.2-12.0); Monocyte# 0.92 X10^3/uL; Monocyte% 7.9 % (0-10); Neutrophil # 9.18 X10^3/uL (2.7-7.7); Neutrophil % 78.5 % (47-70); POSITIVE COUNT NO; POSITIVE DIFFERENTIAL NO; POSITIVE MORPHOLOGY NO; Platelet Count 326 K/mm3 (150-450); RBC Distribution Width CV 14.3 % (11.6-14.6); RBC Distribution Width SD 44.4 fl (35.1-43.9); Red Blood Count 4.23 M/mm3 (4.2-5.4); White Blood Count 11.7 K/mm3 (4.4-11.0)
[2017-10-16 19:27] LABS: ALB/GLOB Ratio 0.7 RATIO (0.9-2.4); AST(SGOT) 20 U/L (15-37); Alanine Aminotransfer ALT/SGPT 37 U/L (13-56); Albumin, Serum 2.8 g/dL (3.2-5.0); Alkaline Phosphatase 132 U/L (45-117); Anion Gap 7 (5-15); BUN 11 mg/dL (7-18); BUN/Creat Ratio 13.6 RATIO (10-20); Calcium,Total 9.1 mg/dL (8.5-10.1); Chloride 97 mmol/L (98-107); Creatinine, Serum 0.81 mg/dL (0.55-1.02); EST Glomerular Filtration Rate 76 mL/min (>60); Est Glom Filt Rate - Afr Amer 92 mL/min (>60); Globulin 3.8 g/dL (2.2-4.2); Glucose 172 mg/dL (74-106); Lipase 305 U/L (73-393); Magnesium 2.1 mg/dL (1.6-2.6); Protein, Total 6.6 g/dL (6.4-8.2); Sodium Level 135 mmol/L (136-145)
[2017-10-16 20:14] LABS: Bacteria 0 SEEN /hpf (None Seen); Mucous, Urine 0 SEEN /hpf (<or=2+); Red Blood Cells-Urine 0 SEEN /hpf (0-5); White Blood Cells 0 SEEN /hpf (0-5)
[2017-10-16 20:21] LABS: Color, Urine Straw (Yellow); Glucose, Dipstick Normal (Normal); Ketone-Dipstick Negative (Negative); Leukocyte Esterase-Dipstick Negative /ul (Negative); Nitrite-Dipstick Negative (Negative); Occult Blood-Urine Negative /ul (Negative); Protein-Dipstick Negative (Negative); Urine Bilirubin Dipstick Negative (Negative); Urine Clarity Clear (Clear); Urine Urobilinogen Normal (Normal)
[2017-10-16 20:33] LABS: Squamous Epithelial Cells - UA 5-10 SEEN /hpf (5-10)
[2017-10-16 20:45] VITALS: BP 112/64; PULSE 80; RESP 23; O2SAT 97
--- NOTE | 2017-10-16 21:16 | ED.VISSUMM ---
- ER Visit Summary Date of Service: 10/16/17 Chief Complaint: Abdominal pain History of Present Illness: The patient is a 61 F who states that for the past several weeks she has had worsening burning in her epigastrium and periumbilical area. She states that she has been in the hospital been to the ER numerous times her primary care doctor to the [facility] and has an appointment on Thursday with gastroenterology (Dr. Jiménez). She states she has a history of GERD and takes Pepcid. She states that she has been feeling constipated and she did GoLYTELY on Thursday. She states that she had not had a bowel movement until arrival here in the department. She has not been able to urinate since around 10:00 this morning but right before the bowel movement she was able to urinate and then she had a bowel movement. The patient states she has been in the emergency room and has had some stable lower GI bleeding. The patient states that she has had some vomiting but not of the past several days. Patient is a poor historian and gives circular stories Physical Examination: Afebrile vital signs are stable Gen: Well-nourished well-developed Head: Normocephalic atraumatic Eyes: Perrl EOMI ENT: TMs clear no rhinorrhea moist mucous membranes Neck: Supple no lymphadenopathy no JVD nontender CVS: Regular rate rhythm no murmurs normal S1-S2 Respiratory: No distress clear to auscultation bilaterally chest nontender Abdomen: Soft tender palpation of the epigastrium nondistended normal bowel sounds no masses Back: Nontender Extremity: Nontender no edema Skin: Normal color no rash Neuro: alert orientated ?3 CN II-XII intact normal strength sensation reflexes gait cerebellar Psych: Very dramatic affect Test Results: Bedside ultrasound reveals about 400 cc on bladder scan. Patient urinated about 300 cc and had bowel movement. White count 11.7 stable hemoglobin. Troponin 0 0.017. EKG sinus at a rate of 83. Magnesium 2.1 (patient has a history of hypomagnesemia). Lipase 305 liver enzymes showed alk phos of 132. CT the abdomen pelvis demonstrates some evidence of duodenitis. Possibility of an ileus however the patient is not having any vomiting and she is moving her bowels. Emergency Department Course and Treatment: Patient will be given Carafate to take in addition with her twice daily Pepcid. She has an appointment on Thursday with gastroenterology and I recommend that she speak to them about her symptoms. I think the patient could not urinate due to the large amount of stool she had in the lower: Based upon the amount that she excreted here in the department. Impression: 1. Duodenitis 2. Acute urinary retention (resolved) secondary to fecal impaction This note was generated with Animating Touch dictation software. It may contain incorrect words, spelling, and punctuation that were not noted in review of the chart prior to signing ED Disposition - Plan for ED Patient: Disposition: Home or Assisted Living Chief Complaint: Abd Pain Instructions: Duodenitis Prescriptions: Sucralfate [Carafate] 1 gm PO 4X/DAY #28 tab Referrals: Matthew Noble Chi, MD [Primary Care Provider] - As soon as possible Aureliano Jiménez MD [STAFF PHYSICIAN] - Keep Antonio appointment
--- NOTE | 2017-10-16 21:19 | ED.DCSUM_ITS ---
- ER Visit Summary Date of Service: 10/16/17 Chief Complaint: Abdominal pain History of Present Illness: The patient is a 61 F who states that for the past several weeks she has had worsening burning in her epigastrium and periumbilical area. She states that she has been in the hospital been to the ER numerous times her primary care doctor to the [facility] and has an appointment on Thursday with gastroenterology (Dr. Jiménez). She states she has a history of GERD and takes Pepcid. She states that she has been feeling constipated and she did GoLYTELY on Thursday. She states that she had not had a bowel movement until arrival here in the department. She has not been able to urinate since around 10:00 this morning but right before the bowel movement she was able to urinate and then she had a bowel movement. The patient states she has been in the emergency room and has had some stable lower GI bleeding. The patient states that she has had some vomiting but not of the past several days. Patient is a poor historian and gives circular stories Physical Examination: Afebrile vital signs are stable Gen: Well-nourished well-developed Head: Normocephalic atraumatic Eyes: Perrl EOMI ENT: TMs clear no rhinorrhea moist mucous membranes Neck: Supple no lymphadenopathy no JVD nontender CVS: Regular rate rhythm no murmurs normal S1-S2 Respiratory: No distress clear to auscultation bilaterally chest nontender Abdomen: Soft tender palpation of the epigastrium nondistended normal bowel sounds no masses Back: Nontender Extremity: Nontender no edema Skin: Normal color no rash Neuro: alert orientated ?3 CN II-XII intact normal strength sensation reflexes gait cerebellar Psych: Very dramatic affect Test Results: Bedside ultrasound reveals about 400 cc on bladder scan. Patient urinated about 300 cc and had bowel movement. White count 11.7 stable hemoglobin. Troponin 0 0.017. EKG sinus at a rate of 83. Magnesium 2.1 ( patient has a history of hypomagnesemia). Lipase 305 liver enzymes showed alk phos of 132. CT the abdomen pelvis demonstrates some evidence of duodenitis. Possibility of an ileus however the patient is not having any vomiting and she is moving her bowels. Emergency Department Course and Treatment: Patient will be given Carafate to take in addition with her twice daily Pepcid. She has an appointment on Thursday with gastroenterology and I recommend that she speak to them about her symptoms. I think the patient could not urinate due to the large amount of stool she had in the lower: Based upon the amount that she excreted here in the department. Impression: 1. Duodenitis 2. Acute urinary retention (resolved) secondary to fecal impaction This note was generated with OluKai dictation software. It may contain incorrect words, spelling, and punctuation that were not noted in review of the chart prior to signing ED Disposition - Plan for ED Patient: Disposition: Home or Assisted Living Chief Complaint: Abd Pain Instructions: Duodenitis Prescriptions: Sucralfate [Carafate] 1 gm PO 4X/DAY #28 tab Referrals: Matthew Noble Chi, MD [Primary Care Provider] - As soon as possible Aureliano Jiménez MD [STAFF PHYSICIAN] - Keep Antonio appointment
[2017-10-16] MEDS: Sucralfate 1 GM Tablet PO (21:42)
[2017-10-16 21:43] VITALS: BP 112/64; PULSE 73; RESP 18; O2SAT 97
== END 2017-10-16 21:43 | disposition home or self-care (01) ==
PROVIDERS: Emergency Provider Emergency Medicine; Family Provider Family Medicine Geriatric Medicine; PCP Family Medicine Geriatric Medicine
DX: K29.80 Duodenitis without bleeding (principal); R33.9 Retention of urine, unspecified; K56.41 Fecal impaction; K21.9 Gastro-esophageal reflux disease without esophagitis; Z79.899 Other long term (current) drug therapy; Z79.02 Long term (current) use of 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/antiplatelets; Z79.82 Long term (current) use of aspirin; Z79.4 Long term (current) use of insulin
CPT/HCPCS: 74176; 80053; 81001; 83690; 83735; 84484; 85025; 93005; 96374; 99285; A4216

== ENCOUNTER 2017-10-17 21:21 | Emergency (ER) | payer MEDICARE, MEDICAID, SELFPAY ==
[2016-07-13 11:45] VITALS: BMI 31.4
[2017-10-17 21:22] VITALS: BP 122/69; PULSE 82; RESP 16; TEMP 36.9; O2SAT 97; BMI 27.9
[2017-10-17] MEDS: 0.9% Normal Saline 1,000 ML 250 ML IV (22:05)
[2017-10-17] MEDS: Ondansetron 4 MG/2 ML Vial IV (22:05)
[2017-10-17 22:15] LABS: Absolute Lymphocyte Count 1.04 X10^3/ul (0.83-4.51); Absolute Neutrophil Count 7.7 X10^3/uL (2.0-7.7); Basophil# 0.02 X10^3/uL; Basophil% 0.2 % (0-1); Eosinophil# 0.12 X10^3/uL; Eosinophils% 1.3 % (0-5); Hematocrit 36.3 % (37-47); Hemoglobin 12.5 g/dl (12.0-15.0); Lymphocyte # 1.04 X10^3/ul (4.0); Lymphocyte % 10.9 % (19-41); Mean Corp Hgb Conc 34.4 g/gl (32-36); Mean Corpuscular Hgb 29.3 pg (27.0-32.0); Mean Platelet Vol. 9.1 fl (6.2-12.0); Monocyte# 0.71 X10^3/uL; Monocyte% 7.4 % (0-10); Neutrophil # 7.65 X10^3/uL (2.7-7.7); POSITIVE COUNT NO; POSITIVE DIFFERENTIAL NO; POSITIVE MORPHOLOGY NO; Platelet Count 327 K/mm3 (150-450); RBC Distribution Width SD 42.8 fl (35.1-43.9); Red Blood Count 4.27 M/mm3 (4.2-5.4); White Blood Count 9.6 K/mm3 (4.4-11.0)
[2017-10-17 22:30] LABS: Anion Gap 10 (5-15); BUN 12 mg/dL (7-18); BUN/Creat Ratio 13.6 RATIO (10-20); Calcium,Total 8.8 mg/dL (8.5-10.1); Chloride 96 mmol/L (98-107); Creatinine, Serum 0.88 mg/dL (0.55-1.02); EST Glomerular Filtration Rate 69 mL/min (>60); Est Glom Filt Rate - Afr Amer 83 mL/min (>60); Estimated Creatinine Clearance 59.64 ml/min; Glucose 312 mg/dL (74-106); Potassium 2.8 mmol/L (3.5-5.1); Sodium Level 133 mmol/L (136-145)
--- NOTE | 2017-10-17 22:54 | ED.VISSUMM ---
- ER Visit Summary Date of Service: 10/17/17 Chief Complaint: Right upper quadrant abdominal pain since October 01 History of Present Illness: The patient is a 61 F who presents for the 7 times since October 01. She has had x-rays, CAT scan blood work etc. with no determine etiology of her pain. She complains of abdominal pain with nausea vomiting when questioned every time she is vomited last 24 hours she responded once. She has had one loose stool. It was not watery. There is no blood or mucus. She denies decreased urine output, dysuria, frequency, urgency or hematuria. She denies cough, shortness of breath or difficulty breathing. She denies chest pain. She denies flank pain. There is no history of trauma. Denies any skin lesions. She denies any food intolerance. Patient does have significant past medical history which includes coronary disease status post ST elevation [place], CHF, dilated cardia myopathy, COPD, type 2 diabetes, hypertension and hypercholesterolemia. There is also history of paroxysmal atrial fibrillation. Review of medicine does not indicate any anticoagulant. Physical Examination: As I entered the room patient is bent over her legs. When I introduced myself she looked up and she was weeping. She has a depressed affect. She is not well groomed. Head is atraumatic normocephalic. Pupils are equal round reactive. Extraocular muscles are intact. TMs are pearly white with landmarks noted. Nares patent with no drainage. Posterior pharynx without erythema or exudate. Uvula is midline. There is no dysphonia or dysphasia. Trachea is midline. There is no stridor with auscultation of the neck. Heart is regular without murmur, gallop or rub. S1 and S2 are normal. Lungs are clear to auscultation with good movement of air bilaterally. Patient has pain out of proportion to tactile stimuli right upper quadrant. Bowel sounds are present normal. There is no guarding or rebound tenderness. There is no CVA tenderness noted. There is no skin lesions or evidence of trauma to the abdomen or back. Neuro exam is nonfocal. Test Results: CBC and BMP are unremarkable. Emergency Department Course and Treatment: IV was established. She was treated with IV Zofran. Blood work was obtained. Since her blood work is unremarkable and her blood sugar was elevated at 313. She received 20 mg of Bentyl p.o. and 8 mg of regular insulin subcu. Treatment Plan: Patient states she is still having pain. She demands pain medicine. She informed me that Percocet does not work. She does not understand why no one can find anything wrong with her. I warned her that 50% of patients who have chronic pain and no causes found is related to her affective disorder and or depression. She states she sees a psychiatrist. She was admitted to a psychiatric facility for 10 days recently because of suicide attempt. As she was telling me that she was pounding her fist against the cot. Today I informed her that she would not receive any opiate analgesia. She informed me if I will not give her any opiate analgesia she will go home. I informed her she should speak with her physician Dr. Noble and her therapist and her psychiatrist to help manage her pain better. Disposition: Discharged to home Impression: 1. Right upper quadrant abdominal pain unknown etiology 2. Depression 3. History of diabetes 4. History hypertension 5. History of dyslipidemia 6. History of coronary disease This note was generated with [employer] dictation software. It may contain incorrect words, spelling, and punctuation that were not noted in review of the chart prior to signing ED Disposition - Plan for ED Patient: Disposition: Home or Assisted Living Chief Complaint: Abd Pain Instructions: ED Abdominal Pain Unkn Cause, Depression Affects Your Mind and Body Referrals: Matthew Noble Chi, MD [Primary Care Provider] - Keep Antonio appointment
[2017-10-18 00:10] VITALS: BP 155/81; PULSE 88; RESP 16; O2SAT 97
[2017-10-18] MEDS: Insulin Lispro 100 UNIT/ML INSULN.PEN 8 UNIT SC (00:11)
== END 2017-10-18 00:13 | disposition home or self-care (01) ==
PROVIDERS: Emergency Provider Emergency Medicine; Family Provider Family Medicine Geriatric Medicine; PCP Family Medicine Geriatric Medicine
DX: R10.11 Right upper quadrant pain (principal); G89.29 Other chronic pain; R11.2 Nausea with vomiting, unspecified; R19.7 Diarrhea, unspecified; R35.0 Frequency of micturition; I25.10 Atherosclerotic heart disease of native coronary artery without angina pectoris; I48.0 Paroxysmal atrial fibrillation; J44.9 Chronic obstructive pulmonary disease, unspecified; I11.0 Hypertensive heart disease with heart failure; I50.9 Heart failure, unspecified; I42.0 Dilated cardiomyopathy; E11.65 Type 2 diabetes mellitus with hyperglycemia; E78.00 Pure hypercholesterolemia, unspecified; F32.9 Major depressive disorder, single episode, unspecified; I25.2 Old myocardial infarction; Z72.0 Tobacco use; Z79.02 Long term (current) use of 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/antiplatelets; Z79.82 Long term (current) use of aspirin; Z79.4 Long term (current) use of insulin; Z79.899 Other long term (current) drug therapy
CPT/HCPCS: 80048; 85025; 96361; 96374; 99285; J7030; J2405

== ENCOUNTER → 2017-10-19 12:45 | Outpatient (CLI) | payer MEDICARE, MEDICAID, SELFPAY ==
[2016-07-13 11:45] VITALS: BMI 31.4
[2017-10-19] MEDS: 0.9% Normal Saline 1,000 ML 999 ML IV ×2 (12:50→14:01)
[2017-10-19 13:03] VITALS: BP 178/110; PULSE 76; RESP 16; TEMP 37.1; O2SAT 100; BMI 26.4
[2017-10-19 14:25] VITALS: BP 137/58; PULSE 77; BMI 26.4
== END ==
PROVIDERS: Family Provider Family Medicine Geriatric Medicine; PCP Family Medicine Geriatric Medicine; Visit Provider Family Medicine Geriatric Medicine
DX: E86.0 Dehydration (principal)
CPT/HCPCS: 96360; J7030; A4216

== ENCOUNTER 2017-10-19 17:58 | Emergency (ER) | payer MEDICARE, MEDICAID, SELFPAY ==
[2016-07-13 11:45] VITALS: BMI 31.4
[2017-10-19 17:59] VITALS: BP 110/48; PULSE 81; RESP 16; TEMP 37.3; O2SAT 98; BMI 28.3
--- NOTE | 2017-10-19 18:23 | ED.VISSUMM ---
- ER Visit Summary Date of Service: 10/19/17 Chief Complaint: abdominal pain History of Present Illness: The patient is a 61 F who presents with diffuse abdominal pain. This is chronic and recurrent she has had multiple times. She is well-known to this emergency department. No new changes. No fever or chills. No nausea, she does have chronic diarrhea. This has not changed. Physical Examination: [] Not appear in acute distress. Moist mucous membranes, no obvious facial deformity No C-spine tenderness supple neck. Regular rate and rhythm without any obvious murmurs Clear lungs bilaterally speaking in full sentences without any obvious respiratory distress Abdomen soft with diffuse tenderness without any guarding or rebound Moves all extremities without any difficulty or pain. Skin does not show any obvious rashes or lesions, no trauma. Alert oriented ?3 with no gross focal deficit Emergency Department Course and Treatment: Patient appears well she is not in distress her vitals are unremarkable. She had hypokalemia on blood work, this was treated and will be treated at home, She will be discharged after Bentyl. Her pain did improve significantly even prior to arriving to the emergency department. She is currently asymptomatic. Disposition: Discharged in stable condition Impression: Recurrent abdominal pain hypokalemia This note was generated with [employer] dictation software. It may contain incorrect words, spelling, and punctuation that were not noted in review of the chart prior to signing ED Disposition - Plan for ED Patient: Disposition: [facility] - [facility] Chief Complaint: Abd Pain Diagnosis: Hypokalemia Instructions: Discharge Instructions for Hypokalemia Prescriptions: Potassium Chloride [K-Dur] 20 meq PO DAILY 10 Days #10 tablet Potassium Chloride [K-Dur] 20 meq PO DAILY #10 tab Referrals: Matthew Noble Chi, MD [Primary Care Provider] - 2 Days
[2017-10-19] MEDS: Dicyclomine 20 MG/2 ML Vial IM (18:34)
[2017-10-19 18:45] LABS: Color, Urine Yellow (Yellow); Glucose, Dipstick Normal (Normal); Ketone-Dipstick Negative (Negative); Leukocyte Esterase-Dipstick Negative /ul (Negative); Nitrite-Dipstick Negative (Negative); Occult Blood-Urine Negative /ul (Negative); Protein-Dipstick Negative (Negative); Specific Gravity, Urine 1.005 (1.002-1.030); Urine Bilirubin Dipstick Negative (Negative); Urine Clarity Clear (Clear); Urine Urobilinogen Normal (Normal)
[2017-10-19 19:00] VITALS: TEMP 37.3
[2017-10-19 19:28] LABS: Absolute Lymphocyte Count 0.98 X10^3/ul (0.83-4.51); Absolute Neutrophil Count 5.2 X10^3/uL (2.0-7.7); Basophil# 0.02 X10^3/uL; Basophil% 0.3 % (0-1); Eosinophil# 0.06 X10^3/uL; Eosinophils% 0.9 % (0-5); Hemoglobin 10.8 g/dl (12.0-15.0); Lymphocyte # 0.98 X10^3/ul (4.0); Lymphocyte % 14.1 % (19-41); Mean Corp Hgb Conc 32.7 g/gl (32-36); Mean Corpuscular Hgb 28.1 pg (27.0-32.0); Mean Corpuscular Volume 85.7 fL (81-99); Mean Platelet Vol. 8.9 fl (6.2-12.0); Monocyte# 0.69 X10^3/uL; Monocyte% 9.9 % (0-10); Neutrophil % 74.7 % (47-70); Platelet Count 249 K/mm3 (150-450); RBC Distribution Width SD 43.8 fl (35.1-43.9); Red Blood Count 3.85 M/mm3 (4.2-5.4)
[2017-10-19 19:30] LABS: POSITIVE COUNT NO; POSITIVE DIFFERENTIAL NO; POSITIVE MORPHOLOGY NO
[2017-10-19 20:15] LABS: ALB/GLOB Ratio 0.8 RATIO (0.9-2.4); AST(SGOT) 13 U/L (15-37); Alanine Aminotransfer ALT/SGPT 25 U/L (13-56); Albumin, Serum 2.6 g/dL (3.2-5.0); Alkaline Phosphatase 117 U/L (45-117); Anion Gap 7 (5-15); BUN 8 mg/dL (7-18); BUN/Creat Ratio 10.9 RATIO (10-20); Calcium,Total 9.1 mg/dL (8.5-10.1); Chloride 101 mmol/L (98-107); Creatinine, Serum 0.73 mg/dL (0.55-1.02); EST Glomerular Filtration Rate 85 mL/min (>60); Est Glom Filt Rate - Afr Amer 103 mL/min (>60); Globulin 3.2 g/dL (2.2-4.2); Glucose 173 mg/dL (74-106); Potassium 2.6 mmol/L (3.5-5.1); Protein, Total 5.8 g/dL (6.4-8.2); Sodium Level 135 mmol/L (136-145)
[2017-10-19 21:01] VITALS: PULSE 65; RESP 16; O2SAT 98
== END 2017-10-19 21:02 | disposition home or self-care (01) ==
PROVIDERS: Emergency Provider Emergency Medicine; Family Provider Family Medicine Geriatric Medicine; PCP Family Medicine Geriatric Medicine
DX: R10.84 Generalized abdominal pain (principal); G89.29 Other chronic pain; E87.6 Hypokalemia; E86.0 Dehydration; K52.9 Noninfective gastroenteritis and colitis, unspecified; Z79.02 Long term (current) use of 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/antiplatelets; Z79.82 Long term (current) use of aspirin; Z79.4 Long term (current) use of insulin; Z79.899 Other long term (current) drug therapy
CPT/HCPCS: 96360; 36415; 80053; 81002; 85025; 96372; 99284; J7030; A4216

== ENCOUNTER 2017-10-23 20:31 | Emergency (ER) | payer MEDICARE, MEDICAID, SELFPAY ==
[2016-07-13 11:45] VITALS: BMI 31.4
[2017-10-23 20:35] VITALS: BP 129/59; PULSE 74; RESP 18; TEMP 37.3; O2SAT 98; BMI 26.6
[2017-10-23 20:51] LABS: Bedside Glucose 313 mg/dL (70-110)
--- NOTE | 2017-10-23 20:57 | CT_ITS ---
STUDY: CT BRAIN WITHOUT CONTRAST REASON FOR EXAM: Female, 61 years old. Extremity weakness RADIATION DOSAGE (If Supplied By Facility): CTDIvol = ( 44.99 ) mGy, DLP = ( 846.73 ) mGycm TECHNIQUE: Transaxial CT imaging of the brain was performed without administration of intravenous contrast material. Individualized dose optimization techniques were used for this CT. COMPARISON: None. FINDINGS: Normal soft tissue structures. Normal calvarium. Calcification of cavernous carotids Moderate atrophy and periventricular white matter ischemic changes.. Normal basal ganglia and thalami. Normal brainstem. Normal cerebellum. Partial empty sella deformity likely of no significance. There is no intracranial hemorrhage. There are no findings of an acute ischemic infarction. Normal visualized paranasal sinuses. CT/Brain/Head without Contrast IMPRESSION: Moderate atrophy and periventricular white matter ischemic changes without evidence for acute bleed. If concern for acute infarct MRI recommended Electronically Signed: Brant Albarran MD at 21:53 EDT , Service support ,
--- NOTE | 2017-10-23 20:57 | EKG12_ITS ---
Test Reason : [facility] Blood Pressure : / mmHG Vent. Rate : 069 BPM Atrial Rate : 069 BPM P-R Int : 160 ms QRS Dur : 102 ms QT Int : 420 ms P-R-T Axes : 052 -41 058 degrees QTc Int : 450 ms Normal sinus rhythm Left axis deviation Anterior infarct , age undetermined Abnormal ECG Confirmed by ALLAN WITT, DORYS ([id number]), online content editor ANA MEDRANO ([id number]) on 10/29/2017 3:34:15 PM Referred By: Matthew Nolbe Confirmed By:DORYS LEMUS MD
[2017-10-23] MEDS: 0.9% Normal Saline 1,000 ML 150 ML IV (21:00)
[2017-10-23 21:19] LABS: Bacteria 0 SEEN /hpf (None Seen); Mucous, Urine 0 SEEN /hpf (<or=2+); Red Blood Cells-Urine 0 SEEN /hpf (0-5)
[2017-10-23 21:39] LABS: Absolute Lymphocyte Count 1.07 X10^3/ul (0.83-4.51); Absolute Neutrophil Count 5.5 X10^3/uL (2.0-7.7); Basophil# 0.03 X10^3/uL; Basophil% 0.4 % (0-1); Eosinophil# 0.04 X10^3/uL; Eosinophils% 0.6 % (0-5); Hematocrit 32.7 % (37-47); Hemoglobin 10.6 g/dl (12.0-15.0); Lymphocyte # 1.07 X10^3/ul (4.0); Lymphocyte % 14.8 % (19-41); Mean Corp Hgb Conc 32.4 g/gl (32-36); Mean Corpuscular Hgb 27.9 pg (27.0-32.0); Mean Corpuscular Volume 86.1 fL (81-99); Monocyte# 0.62 X10^3/uL; Monocyte% 8.6 % (0-10); Neutrophil # 5.46 X10^3/uL (2.7-7.7); Neutrophil % 75.3 % (47-70); POSITIVE COUNT NO; POSITIVE DIFFERENTIAL NO; POSITIVE MORPHOLOGY NO; Platelet Count 305 K/mm3 (150-450); RBC Distribution Width SD 43.8 fl (35.1-43.9); White Blood Count 7.2 K/mm3 (4.4-11.0)
[2017-10-23 21:44] VITALS: BP 136/73; PULSE 69; RESP 15; O2SAT 98
[2017-10-23 21:45] LABS: Color, Urine Yellow (Yellow); Glucose, Dipstick 250 mg/dl (Normal); Ketone-Dipstick Negative (Negative); Leukocyte Esterase-Dipstick 25 /ul (Negative); Nitrite-Dipstick Negative (Negative); Occult Blood-Urine Negative /ul (Negative); Protein-Dipstick Negative (Negative); Urine Bilirubin Dipstick Negative (Negative); Urine Clarity Clear (Clear); Urine Urobilinogen Normal (Normal)
[2017-10-23 21:53] LABS: Anion Gap 10 (5-15); BUN 13 mg/dL (7-18); BUN/Creat Ratio 16.7 RATIO (10-20); Calcium,Total 9.1 mg/dL (8.5-10.1); Chloride 103 mmol/L (98-107); Creatinine, Serum 0.78 mg/dL (0.55-1.02); EST Glomerular Filtration Rate 79 mL/min (>60); Est Glom Filt Rate - Afr Amer 96 mL/min (>60); Estimated Creatinine Clearance 67.29 ml/min; Glucose 238 mg/dL (74-106); Potassium 2.6 mmol/L (3.5-5.1); Sodium Level 136 mmol/L (136-145)
[2017-10-23 21:55] LABS: Squamous Epithelial Cells - UA 0-5 SEEN /hpf (5-10); White Blood Cells 0-5 SEEN /hpf (0-5)
--- NOTE | 2017-10-23 21:58 | ED.RN ---
DR FALCON NOTIFIED OF K+ RESULTS
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
[2017-10-23 22:19] LABS: Alcohol, Blood (Medical)-Serum < 3.0 mg/dL
--- NOTE | 2017-10-23 22:21 | ED.DEP ---
ED Disposition - Plan for ED Patient: Chief Complaint: General Illness Instructions: ED Cephalgia Unspecified, ED Weakness UKO, ED Potassium Deficiency Referrals: Matthew Noble Chi, MD [Primary Care Provider] - 3-5 Days
[2017-10-23] MEDS: Ondansetron 4 MG/2 ML Vial IV (22:22)
[2017-10-23] MEDS: Morphine 4 MG/ML Syringe IV (22:23)
[2017-10-23 22:25] VITALS: BP 142/75; PULSE 68; RESP 15; O2SAT 99
[2017-10-23 22:56] VITALS: BP 133/70; PULSE 78; RESP 15; O2SAT 100
--- NOTE | 2017-10-23 23:09 | ED.RN ---
CALLED [facility] PER PT'S REQUEST. PT ESCORTED OUTSIDE. PT DENIES FURTHER NEEDS.
== END 2017-10-23 23:15 | disposition home or self-care (01) ==
LOC: ED 21:24
PROVIDERS: Emergency Provider Emergency Medicine; Family Provider Family Medicine Geriatric Medicine; PCP Family Medicine Geriatric Medicine
DX: R51 Headache (principal); G89.29 Other chronic pain; E87.6 Hypokalemia; G35 Multiple sclerosis; I25.10 Atherosclerotic heart disease of native coronary artery without angina pectoris; I11.0 Hypertensive heart disease with heart failure; I50.9 Heart failure, unspecified; I48.92 Unspecified atrial flutter; J44.9 Chronic obstructive pulmonary disease, unspecified; E11.9 Type 2 diabetes mellitus without complications; Z72.0 Tobacco use; I25.2 Old myocardial infarction; Z79.02 Long term (current) use of 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/antiplatelets; Z79.82 Long term (current) use of aspirin; Z79.4 Long term (current) use of insulin; Z79.899 Other long term (current) drug therapy
CPT/HCPCS: 70450; 80048; 80320; 81001; 82962; 83735; 84484; 85025; 93005; 96361; 96374; 96375; 99285; J7030; A4216; G0480; J2405

== ENCOUNTER 2017-10-26 14:11 | Emergency (ER) | payer MEDICARE, SELFPAY ==
[2016-07-13 11:45] VITALS: BMI 31.4
[2017-10-26 14:12] VITALS: BP 129/77; PULSE 115; RESP 16; TEMP 35.6; O2SAT 99; BMI 26.4
--- NOTE | 2017-10-26 15:34 | ED.VISSUMM ---
- ER Visit Summary Date of Service: 10/26/17 Chief Complaint: Abdominal pain, nausea and vomiting History of Present Illness: The patient is a 61 F is been seen here many times for abdominal pain, nausea vomiting who presents again today for abdominal pain nausea and vomiting. She states that she has been vomiting she cannot keep her Percocet down. She has burning pain in her epigastric area. She has had nausea with vomiting. She also admits to diarrhea. 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 She is also been taking Carafate at home. She has a history of A. fib on Plavix. Physical Examination: Vital signs reviewed. HEENT exam unremarkable. Heart is regular rate and rhythm without murmurs. Lungs are clear to auscultation. Abdomen is soft with tenderness in the epigastric area. Extremities reveal no edema. Skin exam normal. Neurologic exam normal. Test Results: Hemoglobin is 10.2 which is baseline. Potassium 3.4. Glucose 327 Emergency Department Course and Treatment: Patient was given Bentyl and Phenergan. She feels much better and would like to go home. She will follow-up on for her endoscopy Treatment Plan: [] Disposition: Discharge Impression: Chronic abdominal pain and vomiting This note was generated with [employer] dictation software. It may contain incorrect words, spelling, and punctuation that were not noted in review of the chart prior to signing ED Disposition - Plan for ED Patient: Chief Complaint: GI Bleed Referrals: Matthew Noble Chi, MD [Primary Care Provider] -
[2017-10-26] MEDS: proMETHazine 25 MG/ML Syringe 12.5 MG IV (16:00)
[2017-10-26] MEDS: Dicyclomine 20 MG/2 ML Vial IM (16:01)
[2017-10-26 16:07] LABS: Absolute Lymphocyte Count 0.67 X10^3/ul (0.83-4.51); Basophil# 0.03 X10^3/uL; Basophil% 0.7 % (0-1); Eosinophil# 0.03 X10^3/uL; Eosinophils% 0.7 % (0-5); Hematocrit 32.1 % (37-47); Hemoglobin 10.2 g/dl (12.0-15.0); Lymphocyte # 0.67 X10^3/ul (4.0); Lymphocyte % 15.3 % (19-41); Mean Corp Hgb Conc 31.8 g/gl (32-36); Mean Corpuscular Hgb 27.5 pg (27.0-32.0); Mean Corpuscular Volume 86.5 fL (81-99); Monocyte% 13.7 % (0-10); Neutrophil # 3.04 X10^3/uL (2.7-7.7); Neutrophil % 69.4 % (47-70); Platelet Count 326 K/mm3 (150-450); RBC Distribution Width CV 14.3 % (11.6-14.6); Red Blood Count 3.71 M/mm3 (4.2-5.4); White Blood Count 4.4 K/mm3 (4.4-11.0)
[2017-10-26 16:13] LABS: POSITIVE COUNT NO; POSITIVE DIFFERENTIAL NO; POSITIVE MORPHOLOGY NO
[2017-10-26 16:30] LABS: Anion Gap 6 (5-15); BUN 17 mg/dL (7-18); BUN/Creat Ratio 21.7 RATIO (10-20); Calcium,Total 8.9 mg/dL (8.5-10.1); Chloride 102 mmol/L (98-107); Creatinine, Serum 0.78 mg/dL (0.55-1.02); EST Glomerular Filtration Rate 79 mL/min (>60); Est Glom Filt Rate - Afr Amer 96 mL/min (>60); Estimated Creatinine Clearance 67.29 ml/min; Glucose 327 mg/dL (74-106); Potassium 3.4 mmol/L (3.5-5.1); Sodium Level 134 mmol/L (136-145)
--- NOTE | 2017-10-26 16:43 | ED.DEP ---
ED Disposition - Plan for ED Patient: Disposition: Home or Assisted Living Chief Complaint: GI Bleed Instructions: ED Epigastric Pain UKO Referrals: Matthew Noble Chi, MD [Primary Care Provider] -
[2017-10-26 16:47] VITALS: BP 128/76; PULSE 98; RESP 16; O2SAT 97
== END 2017-10-26 16:54 | disposition home or self-care (01) ==
PROVIDERS: Emergency Provider Emergency Medicine; Family Provider Family Medicine Geriatric Medicine; PCP Family Medicine Geriatric Medicine
DX: R10.13 Epigastric pain (principal); G89.29 Other chronic pain; R11.2 Nausea with vomiting, unspecified; R19.7 Diarrhea, unspecified; G35 Multiple sclerosis; I48.91 Unspecified atrial fibrillation; E11.9 Type 2 diabetes mellitus without complications; I10 Essential (primary) hypertension; Z79.84 Long term (current) use of oral hypoglycemic drugs; Z79.02 Long term (current) use of 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/antiplatelets; Z79.82 Long term (current) use of aspirin; Z79.4 Long term (current) use of insulin; Z79.899 Other long term (current) drug therapy; Z72.0 Tobacco use
CPT/HCPCS: 80048; 85025; 96372; 96374; 99284; A4216

== ENCOUNTER 2017-10-28 12:27 | Emergency (ER) | payer MEDICARE, SELFPAY ==
[2016-07-13 11:45] VITALS: BMI 31.4
[2017-10-28 12:29] VITALS: BP 122/88; PULSE 118; RESP 17; TEMP 35.9; O2SAT 99; BMI 26.5
[2017-10-28] MEDS: 0.9% Normal Saline 1,000 ML 1000 ML IV ×2 (13:09→13:58)
[2017-10-28] MEDS: oxyCODONE 5 MG Tablet 10 MG PO (13:09)
[2017-10-28 13:17] LABS: Absolute Lymphocyte Count 1.21 X10^3/ul (0.83-4.51); Absolute Neutrophil Count 5.4 X10^3/uL (2.0-7.7); Basophil# 0.03 X10^3/uL; Basophil% 0.4 % (0-1); Eosinophil# 0.05 X10^3/uL; Eosinophils% 0.7 % (0-5); Hemoglobin 10.7 g/dl (12.0-15.0); Lymphocyte # 1.21 X10^3/ul (4.0); Lymphocyte % 16.8 % (19-41); Mean Corp Hgb Conc 33.4 g/gl (32-36); Mean Corpuscular Hgb 29.2 pg (27.0-32.0); Mean Corpuscular Volume 87.4 fL (81-99); Monocyte% 6.9 % (0-10); Neutrophil % 75.1 % (47-70); Platelet Count 352 K/mm3 (150-450); RBC Distribution Width CV 13.9 % (11.6-14.6); RBC Distribution Width SD 43.2 fl (35.1-43.9); Red Blood Count 3.66 M/mm3 (4.2-5.4); White Blood Count 7.2 K/mm3 (4.4-11.0)
[2017-10-28 13:18] LABS: POSITIVE COUNT NO; POSITIVE DIFFERENTIAL NO; POSITIVE MORPHOLOGY NO
[2017-10-28 13:36] LABS: Anion Gap 6 (5-15); BUN 15 mg/dL (7-18); BUN/Creat Ratio 14.9 RATIO (10-20); Calcium,Total 8.4 mg/dL (8.5-10.1); Chloride 102 mmol/L (98-107); Creatinine, Serum 1.01 mg/dL (0.55-1.02); EST Glomerular Filtration Rate 59 mL/min (>60); Est Glom Filt Rate - Afr Amer 71 mL/min (>60); Estimated Creatinine Clearance 51.97 ml/min; Glucose 198 mg/dL (74-106); Potassium 2.7 mmol/L (3.5-5.1); Sodium Level 135 mmol/L (136-145)
[2017-10-28 13:39] LABS: Mucous, Urine 0 SEEN /hpf (<or=2+); Red Blood Cells-Urine 0 SEEN /hpf (0-5)
[2017-10-28 13:42] LABS: Color, Urine Yellow (Yellow); Glucose, Dipstick Normal (Normal); Ketone-Dipstick Negative (Negative); Leukocyte Esterase-Dipstick 500 /ul (Negative); Nitrite-Dipstick Negative (Negative); Occult Blood-Urine Negative /ul (Negative); Protein-Dipstick Negative (Negative); Specific Gravity, Urine 1.005 (1.002-1.030); Urine Bilirubin Dipstick Negative (Negative); Urine Clarity Clear (Clear); Urine Urobilinogen Normal (Normal); Urine pH 6.5 (5.0 - 8.0)
[2017-10-28 13:56] LABS: Bacteria 1+ /hpf (None Seen); Hyaline Cast 0-5 SEEN /lpf (0-5); Squamous Epithelial Cells - UA 0-5 SEEN /hpf (5-10); White Blood Cells 5-10 SEEN /hpf (0-5)
--- NOTE | 2017-10-28 14:42 | ED.DCSUM_ITS ---
- ER Visit Summary Date of Service: 10/28/17 Chief Complaint: Nausea vomiting diarrhea History of Present Illness: The patient is a 61 F presenting for evaluation secondary to nausea vomiting diarrhea. Patient has an underlying history of chronic pain, sees palliative care. Patient reports that since yesterday at about midnight she had a sudden onset of significant nausea vomiting diarrhea. Patient reports that she has had multiple episodes of nonbloody nonbilious emesis as well as multiple episodes of loose watery nonbloody non-mucousy diarrhea. Patient reports that she cannot really keep her pain medications down. She was able to keep a rectal Phenergan in, had a minimal amount of improvement of her vomiting but feels that she is dehydrated. She also states that she is feeling like she has decreased urination. She endorses that she is having some subjective fevers associated with this. She denies any new pain outside of her typical abdominal pain. Physical Examination: Vital signs notable for heart rate of 118. Well- nourished female no acute distress. Moist mucous members. No JVD. Heart was tachycardic and regular. Lung sounds clear. Abdomen was soft and nontender. Extremities were nontender. Skin was normal color no rash. Remainder physical otherwise unremarkable. Test Results: CBC chemistry urinalysis were remarkable only for potassium of 2.7 for which the patient has chronic hypokalemia and takes potassium at home Emergency Department Course and Treatment: Patient presented for evaluation secondary nausea vomiting. She has a benign abdominal exam. She was treated with oral pain medication as well as a liter normal saline. Patient's laboratory workup shows hypokalemia which was treated with p.o. potassium and will continue to be treated at home with her p.o. potassium. Patient had some dramatic improvement on repeat evaluation. At this point I believe she safely can be discharged. She will follow-up with primary care. Disposition: Discharge Impression: 1. Gastroenteritis 2. Chronic hypokalemia This note was generated with [employer] dictation software. It may contain incorrect words, spelling, and punctuation that were not noted in review of the chart prior to signing ED Disposition - Plan for ED Patient: Disposition: Home or Assisted Living Chief Complaint: Nausea/Vomiting/Diarrhea Diagnosis: Gastroenteritis Instructions: ED Gastroenteritis Viral Referrals: Matthew Noble Chi, MD [Primary Care Provider] - As Needed
[2017-10-28 15:08] VITALS: PULSE 104; RESP 15; O2SAT 98
== END 2017-10-28 15:09 | disposition home or self-care (01) ==
PROVIDERS: Emergency Provider Emergency Medicine; Family Provider Family Medicine Geriatric Medicine; PCP Family Medicine Geriatric Medicine
DX: K52.9 Noninfective gastroenteritis and colitis, unspecified (principal); E87.6 Hypokalemia; R10.9 Unspecified abdominal pain; G89.29 Other chronic pain; R00.0 Tachycardia, unspecified; Z79.02 Long term (current) use of 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/antiplatelets; Z79.82 Long term (current) use of aspirin; Z79.4 Long term (current) use of insulin; Z79.899 Other long term (current) drug therapy
CPT/HCPCS: 80048; 81001; 85025; 96360; 96361; 99284; J7030

== ENCOUNTER 2017-11-20 17:02 | Emergency (ER) | payer MEDICARE, SELFPAY ==
[2016-07-13 11:45] VITALS: BMI 31.4
[2017-11-20 17:03] VITALS: BP 125/65; PULSE 86; RESP 16; TEMP 36.9; O2SAT 100; BMI 26.8
--- NOTE | 2017-11-20 17:45 | CT_ITS ---
STUDY: CT ABDOMEN AND PELVIS WITHOUT CONTRAST REASON FOR EXAM: Female, 61 years old. Abdominal pain, bladder spams, dx UTI 2 days ago and started antibiotics. Hx hypertension, diabetes. RADIATION DOSAGE (If Supplied By Facility): CTDIvol = ( 7.75 ) mGy, DLP = ( 379.44 ) mGycm TECHNIQUE: Transaxial images were obtained from the dome of the diaphragm to the symphysis pubis without oral contrast, and without intravenous contrast. Sagittal and coronal images were reconstructed. Individualized dose optimization techniques were used for this CT. COMPARISON: None. FINDINGS: The visualized lung bases are unremarkable. The visualized portions of the heart are within normal limits. Normal liver. Normal gallbladder and extrahepatic biliary system. Normal spleen. Normal pancreas. Normal bilateral adrenal glands. Normal right kidney. Normal left kidney. Normal visualized stomach. Normal small intestine. Normal colon. The appendix is visualized and appears normal. Normal abdominal aorta. Normal inferior vena cava. Normal retroperitoneum. Normal urinary bladder. There is atrophy of the uterus and ovaries. Normal abdominal wall. There are diffuse degenerative changes of the visualized lumbar spine. CT/Abdomen/Pelvis without Cont IMPRESSION: No evidence of hydronephrosis. No kidney stones. Electronically Signed: Ramin Fatima MD at 19:14 EDT Tel , Service support ,
--- NOTE | 2017-11-20 17:46 | ED.VISSUMM ---
- ER Visit Summary Date of Service: 11/20/17 Chief Complaint: UTI/fall History of Present Illness: The patient is a 61 F who developed UTI symptoms 5 days ago. She was seen by Dr. Jessica 2 days ago and started on Keflex for UTI. Patient states she called her doctor yesterday due to increased pain and spasms. They called in Pyridium but was not covered on her insurance that she was given cranberry tabs instead. Patient complains of worsened pain. She had blood in her urine today. When she called the doctor she was encouraged to come the emergency room. Patient does describe falling and hitting her head while rushing to the bathroom today. She denies loss of consciousness. She does not have headache. Medication list is reviewed and includes Plavix and aspirin. Physical Examination: Vital signs are unremarkable. Patient's lying in bed no acute distress. She is nontoxic appearing. Head neck examination unremarkable. Heart is regular rate and rhythm. Lung sounds are clear. Abdomen is soft with suprapubic tenderness. There is no guarding or rebound. She does have right CVA tenderness. Test Results: Urinalysis shows greater than 100 white cells and 2+ bacteria. CT flank shows no evidence of hydronephrosis or kidney stones. Emergency Department Course and Treatment: Patient was given a dose of Pyridium here. Upon completion of her test results I did speak with the patient's urologist. We will send a new urine culture and switch her to Bactrim. Treatment Plan: [] Disposition: Discharge Impression: Cystitis This note was generated with [employer] dictation software. It may contain incorrect words, spelling, and punctuation that were not noted in review of the chart prior to signing ED Disposition - Plan for ED Patient: Chief Complaint: Complaint Referrals: Matthew Noble Chi, MD [Primary Care Provider] -
[2017-11-20] MEDS: Phenazopyridine 95 MG Tablet 190 MG PO (18:01)
[2017-11-20 18:43] LABS: Mucous, Urine 0 SEEN /hpf (<or=2+)
[2017-11-20 18:48] LABS: Color, Urine Yellow (Yellow); Glucose, Dipstick Normal (Normal); Ketone-Dipstick Negative (Negative); Leukocyte Esterase-Dipstick 500 /ul (Negative); Nitrite-Dipstick Negative (Negative); Occult Blood-Urine 10 /ul (Negative); Protein-Dipstick 15 mg/dl (Negative); Urine Bilirubin Dipstick Negative (Negative); Urine Clarity Sl. Cloudy (Clear); Urine Urobilinogen Normal (Normal)
[2017-11-20 18:56] LABS: Bacteria 2+ /hpf (None Seen); Red Blood Cells-Urine 5-10 SEEN /hpf (0-5); Squamous Epithelial Cells - UA 0-5 SEEN /hpf (5-10); White Blood Cells >100 SEEN /hpf (0-5)
[2017-11-20 19:26] VITALS: BP 118/52; PULSE 75; RESP 16; O2SAT 98
--- NOTE | 2017-11-20 19:35 | ED.DEP ---
ED Disposition - Plan for ED Patient: Disposition: Home or Assisted Living Chief Complaint: Complaint Instructions: ED UTI Cystitis Female Prescriptions: Smz/Tmp Ds [Bactrim Ds] 1 tablet PO BID #6 tablet Referrals: Matthew Noble Chi, MD [Primary Care Provider] - Madiha Jessica MD [STAFF PHYSICIAN] - 1 Week
[2017-11-20] MEDS: Smz/Tmp Ds Tablet 1 TABLET PO (19:44)
[2017-11-20 19:46] VITALS: BP 139/71; PULSE 83; RESP 22; O2SAT 97
== END 2017-11-20 19:47 | disposition home or self-care (01) ==
PROVIDERS: Emergency Provider Emergency Medicine; Family Provider Family Medicine Geriatric Medicine; PCP Family Medicine Geriatric Medicine
DX: N30.91 Cystitis, unspecified with hematuria (principal); J44.9 Chronic obstructive pulmonary disease, unspecified; G35 Multiple sclerosis; I48.91 Unspecified atrial fibrillation; E11.9 Type 2 diabetes mellitus without complications; I10 Essential (primary) hypertension; Z72.0 Tobacco use; Z79.84 Long term (current) use of oral hypoglycemic drugs; Z79.02 Long term (current) use of 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/antiplatelets; Z79.82 Long term (current) use of aspirin; Z79.4 Long term (current) use of insulin; Z79.899 Other long term (current) drug therapy; Z91.81 History of falling; I25.2 Old myocardial infarction; Z95.5 Presence of coronary angioplasty implant and graft
CPT/HCPCS: 74176; 81001; 87077; 87086; 87088; 87186; 99285

== ENCOUNTER 2017-11-22 16:53 | Emergency (ER) | payer MEDICARE, SELFPAY ==
[2016-07-13 11:45] VITALS: BMI 31.4
[2017-11-22 16:54] VITALS: BP 123/63; PULSE 89; RESP 16; TEMP 36.3; O2SAT 99; BMI 26.8
--- NOTE | 2017-11-22 17:22 | EKG12_ITS ---
Test Reason : [facility] Blood Pressure : / mmHG Vent. Rate : 080 BPM Atrial Rate : 080 BPM P-R Int : 158 ms QRS Dur : 100 ms QT Int : 392 ms P-R-T Axes : 061 -44 079 degrees QTc Int : 452 ms Normal sinus rhythm Left axis deviation Low voltage QRS Septal infarct , age undetermined Inferior infarct , age undetermined Abnormal ECG Confirmed by CATHERINE WITT, GRIS ([id number]), editor city ANA MEDRANO ([id number]) on 11/26/2017 9:57:50 AM Referred By: RADHA Confirmed By:GRIS ALEXANDER MD
[2017-11-22 17:37] LABS: Absolute Lymphocyte Count 0.99 X10^3/ul (0.83-4.51); Absolute Neutrophil Count 8.5 X10^3/uL (2.0-7.7); Basophil# 0.06 X10^3/uL; Basophil% 0.6 % (0-1); Eosinophil# 0.13 X10^3/uL; Eosinophils% 1.2 % (0-5); Hematocrit 37.9 % (37-47); Hemoglobin 12.5 g/dl (12.0-15.0); Lymphocyte # 0.99 X10^3/ul (4.0); Lymphocyte % 9.5 % (19-41); Mean Corpuscular Hgb 27.2 pg (27.0-32.0); Mean Corpuscular Volume 82.4 fL (81-99); Mean Platelet Vol. 9.6 fl (6.2-12.0); Monocyte# 0.76 X10^3/uL; Monocyte% 7.3 % (0-10); Neutrophil # 8.47 X10^3/uL (2.7-7.7); Platelet Count 302 K/mm3 (150-450); RBC Distribution Width CV 13.7 % (11.6-14.6); RBC Distribution Width SD 41.8 fl (35.1-43.9); White Blood Count 10.5 K/mm3 (4.4-11.0)
[2017-11-22 17:38] LABS: POSITIVE COUNT NO; POSITIVE DIFFERENTIAL NO; POSITIVE MORPHOLOGY NO
--- NOTE | 2017-11-22 17:48 | ED.DCSUM_ITS ---
- ER Visit Summary Date of Service: 11/22/17 Chief Complaint: Suicidal ideation History of Present Illness: The patient is a 61 F presenting with suicidal ideation. She states that she has been feeling out of control over the past couple of weeks. She states that her highs are very high and her lows are very low. She states that she has been sleeping a lot over the last 3 days. She currently lives with a roommate but the roommate is going out of town soon. She is concerned that she may overdose on pills while her roommate is gone. She is currently on Bactrim for UTI. She is a smoker. She denies other complaints. Physical Examination: Vitals are stable. Patient is afebrile. Alert no acute distress. HEENT exam is unremarkable. Neck is supple. Lungs are clear and equal bilaterally. Heart is regular rate and rhythm. Abdomen is soft nontender nondistended. Extremities are unremarkable. Skin is warm and dry. No focal neurologic deficit. Depressed affect Remainder of exam is unremarkable. Emergency Department Course and Treatment: CBC is unremarkable. Chemistries show sodium 129, potassium 2.8, glucose 333, BUN 26, creatinine 1.39. Urinalysis shows 25-50 white blood cells contaminated with 10-25 epithelial cells. Tox positive for methadone. Alcohol negative. She is given potassium oral replacement as well as IV fluids. She is given insulin subcutaneously. Discussed with the counseling center for evaluation. Disposition: Per counseling center Impression: Suicidal ideation, hypokalemia This note was generated with [employer] dictation software. It may contain incorrect words, spelling, and punctuation that were not noted in review of the chart prior to signing ED Disposition - Plan for ED Patient: Chief Complaint: Suicidal Referrals: Matthew Noble Chi, MD [Primary Care Provider] -
[2017-11-22 18:05] LABS: ALB/GLOB Ratio 0.9 RATIO (0.9-2.4); AST(SGOT) 18 U/L (15-37); Alanine Aminotransfer ALT/SGPT 25 U/L (13-56); Albumin, Serum 3.5 g/dL (3.2-5.0); Alkaline Phosphatase 139 U/L (45-117); Anion Gap 9 (5-15); BUN 26 mg/dL (7-18); BUN/Creat Ratio 18.7 RATIO (10-20); Calcium,Total 9.9 mg/dL (8.5-10.1); Chloride 97 mmol/L (98-107); Creatinine, Serum 1.39 mg/dL (0.55-1.02); EST Glomerular Filtration Rate 41 mL/min (>60); Est Glom Filt Rate - Afr Amer 49 mL/min (>60); Estimated Creatinine Clearance 37.76 ml/min; Globulin 3.7 g/dL (2.2-4.2); Glucose 333 mg/dL (74-106); Potassium 2.8 mmol/L (3.5-5.1); Protein, Total 7.2 g/dL (6.4-8.2); Sodium Level 129 mmol/L (136-145)
[2017-11-22 18:06] VITALS: RESP 16
[2017-11-22 18:08] LABS: Mucous, Urine 0 SEEN /hpf (<or=2+); Red Blood Cells-Urine 0 SEEN /hpf (0-5)
[2017-11-22 18:10] LABS: Color, Urine Yellow (Yellow); Glucose, Dipstick Normal (Normal); Ketone-Dipstick Negative (Negative); Leukocyte Esterase-Dipstick 500 /ul (Negative); Nitrite-Dipstick Negative (Negative); Occult Blood-Urine 10 /ul (Negative); Protein-Dipstick 30 mg/dl (Negative); Specific Gravity, Urine 1.015 (1.002-1.030); Urine Bilirubin Dipstick Negative (Negative); Urine Clarity Sl. Cloudy (Clear); Urine Urobilinogen Normal (Normal)
[2017-11-22 18:12] LABS: Alcohol, Blood (Medical)-Serum < 3.0 mg/dL
[2017-11-22 18:20] LABS: Squamous Epithelial Cells - UA 10-25 SEEN /hpf (5-10); White Blood Cells 25-50 SEEN /hpf (0-5)
[2017-11-22 18:21] LABS: Bacteria RARE /hpf (None Seen); Hyaline Cast 0-5 SEEN /lpf (0-5); Transitional Epithelial - Ur 0-5 SEEN /hpf (0-5)
[2017-11-22 18:29] LABS: Amphetamine Urine VISTA NEGATIVE (<1000 ng/mL); Barbiturate Urine VISTA NEGATIVE (< 200 ng/mL); Benzodiazepine Urine VISTA NEGATIVE (< 200 ng/mL); Cocaine Urine VISTA NEGATIVE (< 300 ng/mL); Ecstacy Urine VISTA NEGATIVE (< 500 ng/mL); Methadone Urine VISTA POSITIVE (< 300 ng/mL); PCP Urine VISTA NEGATIVE (< 25 ng/mL); THC Urine VISTA NEGATIVE (< 50 ng/mL); Vista UDS pH Range 6
[2017-11-22 19:41] VITALS: BP 169/80; PULSE 87; RESP 15; O2SAT 100
[2017-11-22 23:39] VITALS: RESP 12
[2017-11-23] VITALS (7 sets, daily range): BP systolic 97–115; BP diastolic 61–67; PULSE 60–79; RESP 15–18; O2SAT 97–98
[2017-11-23 01:45] LABS: Bedside Glucose 76 mg/dL (70-110)
[2017-11-23] MEDS: Ibuprofen 600 MG Tablet PO (03:06)
[2017-11-23] MEDS: Sucralfate 1 GM Tablet PO ×2 (07:45→16:04)
[2017-11-23] MEDS: Acetaminophen 325 MG Tablet 650 MG PO (09:03)
--- NOTE | 2017-11-23 09:03 | NURSING ---
CALLED [facility] ABOUT PATIENT. ALL [facility] [place] ARE FULL. ANNA Paredes IS WORKING ON BED PLACEMENT.
--- NOTE | 2017-11-23 09:08 | ED.RN ---
THIS RN IN TO GIVE PT TYLENOL FOR COMPLAINTS OF A HEADACHE. PT STATES I TAKE PERCOCET EVERYDAY AT HOME. THIS RN LOOKED AT PT PRESCRIPTION HX. PT LAST HAD FILLED IN MAY. DR AWARE. NO FURTHER ORDERS
--- NOTE | 2017-11-23 09:10 | ED.RN ---
[facility] REFUSED PT. IMERES AWARE. ATTEMPTING OTHER FACILITIES
[2017-11-23] MEDS: oxyCODONE 5 MG Tablet PO ×2 (10:52→16:03)
[2017-11-23 11:11] LABS: Bedside Glucose 394 mg/dL (70-110)
--- NOTE | 2017-11-23 12:00 | NURSING ---
AUBREE, MARY, CALLED. TALKING TO RN ABOUT LABS NEEDED FOR ACCEPTANCE
[2017-11-23] MEDS: Modafinil 200 MG Tablet PO (12:54)
[2017-11-23] MEDS: Clopidogrel Bisulfate 75 MG Tablet PO (13:18)
[2017-11-23] MEDS: Pantoprazole Sodium 40 MG Tablet PO (13:18)
[2017-11-23] MEDS: Glimepiride 4 MG Tablet PO (13:18)
[2017-11-23] MEDS: DULoxetine Hcl 60 MG Capsule PO (13:19)
[2017-11-23] MEDS: Carvedilol 3.125 MG TABLET PO (13:19)
[2017-11-23] MEDS: Furosemide 40 MG Tablet PO (13:19)
--- NOTE | 2017-11-23 13:32 | ED.RN ---
PT IS RESTING COMFORTABLY IN HER BED. PT WAS GIVEN HER LUNCH TRAY AND MEDICATIONS. PT TOOK MEDICATIONS WITHOUT ANY COMPLICATIONS. PT COMPLIANT AND COOPERATIVE AT THIS TIME. PT UPDATED ON WAIT STATUS FOR PLACEMENT AT A PSYCH FACILITY. PT IS AWARE AND OKAY WITH PLAN.
[2017-11-23] MEDS: Isosorbide Mononitrate 30 MG Tablet PO (14:16)
[2017-11-23 14:34] LABS: Potassium 3.4 mmol/L (3.5-5.1); Sodium Level 132 mmol/L (136-145)
[2017-11-23] MEDS: proMETHazine 25 MG Tablet 12.5 MG PO (16:03)
--- NOTE | 2017-11-23 17:10 | NURSING ---
CALLED MARIANNA TONG AT [facility]. HE WILL CHECK ON PROGRESS AND CALL BACK
--- NOTE | 2017-11-23 17:41 | ED.RN ---
PT IS RESTING COMFORTABLY IN BED. PT IS AWARE OF ACCEPTANCE TO [facility], AWAITING FINAL ACCEPTANCE. PT IS A/O TIMES 4. PT MEAL TRAY ORDERED FOR DINNER. PT ATE DINNER. PT IS CALM AND COOPERATIVE AT THIS TIME.
--- NOTE | 2017-11-23 17:42 | ED.RN ---
TALKED WITH MARIANNA FROM [facility]. FOLLOWING UP WITH [facility] INTAKE NURSE ON FAXED LAB RESULTS. MARIANNA TO CALL BACK WITH UPDATE ON PT.
[2017-11-23] MEDS: Pramipexole Di-HCl 0.25 MG Tablet PO (19:53)
--- NOTE | 2017-11-23 21:45 | NURSING ---
pt transported via [facility]
== END 2017-11-23 21:46 ==
LOC: ED 18:15
PROVIDERS: Emergency Medicine; Emergency Provider Emergency Medicine; Family Provider Family Medicine Geriatric Medicine; PCP Family Medicine Geriatric Medicine
DX: R45.851 Suicidal ideations (principal); N39.0 Urinary tract infection, site not specified; E87.6 Hypokalemia; G35 Multiple sclerosis; E11.9 Type 2 diabetes mellitus without complications; I10 Essential (primary) hypertension; F32.9 Major depressive disorder, single episode, unspecified; F41.9 Anxiety disorder, unspecified; F17.200 Nicotine dependence, unspecified, uncomplicated; Z79.02 Long term (current) use of 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/antiplatelets; Z79.82 Long term (current) use of aspirin; Z79.4 Long term (current) use of insulin; Z79.899 Other long term (current) drug therapy
CPT/HCPCS: 80053; 80307; 80320; 81001; 82962; 84132; 84295; 85025; 93005; 96360; 99285; J7030; J7040; A4216; G0480

== ENCOUNTER 2017-11-29 09:02 | Emergency (ER) | payer MEDICARE, SELFPAY ==
[2016-07-13 11:45] VITALS: BMI 31.4
[2017-11-29] VITALS (7 sets, daily range): BP systolic 88–121; BP diastolic 42–68; PULSE 63–74; RESP 13–20; TEMP 36.9–37.2; O2SAT 98–100; BMI 25.7
--- NOTE | 2017-11-29 09:05 | EKG12_ITS ---
Test Reason : CP Blood Pressure : / mmHG Vent. Rate : 070 BPM Atrial Rate : 070 BPM P-R Int : 168 ms QRS Dur : 086 ms QT Int : 396 ms P-R-T Axes : 037 -37 059 degrees QTc Int : 427 ms Normal sinus rhythm Left axis deviation Low voltage QRS Inferior infarct , age undetermined Anterior PA, age undetermined, cannot be excluded Abnormal ECG Confirmed by CATHERINE WITT, GRIS ([id number]), editor in chief ANA MEDRANO ([id number]) on 12/02/2017 10:42:47 AM Referred By: Confirmed By:GRIS ALEXANDER MD
[2017-11-29 09:25] LABS: Absolute Lymphocyte Count 0.91 X10^3/ul (0.83-4.51); Absolute Neutrophil Count 5.9 X10^3/uL (2.0-7.7); Basophil# 0.06 X10^3/uL; Basophil% 0.8 % (0-1); Eosinophil# 0.28 X10^3/uL; Eosinophils% 3.6 % (0-5); Hematocrit 34.5 % (37-47); Hemoglobin 10.8 g/dl (12.0-15.0); Lymphocyte # 0.91 X10^3/ul (4.0); Lymphocyte % 11.7 % (19-41); Mean Corp Hgb Conc 31.3 g/gl (32-36); Mean Corpuscular Hgb 26.9 pg (27.0-32.0); Mean Platelet Vol. 9.5 fl (6.2-12.0); Monocyte# 0.63 X10^3/uL; Monocyte% 8.1 % (0-10); Neutrophil # 5.88 X10^3/uL (2.7-7.7); Neutrophil % 75.8 % (47-70); Platelet Count 260 K/mm3 (150-450); RBC Distribution Width CV 14.8 % (11.6-14.6); RBC Distribution Width SD 46.8 fl (35.1-43.9); Red Blood Count 4.01 M/mm3 (4.2-5.4); White Blood Count 7.8 K/mm3 (4.4-11.0)
[2017-11-29 09:26] LABS: POSITIVE COUNT NO; POSITIVE DIFFERENTIAL NO; POSITIVE MORPHOLOGY NO
--- NOTE | 2017-11-29 09:26 | ED.DCSUM_ITS ---
- ER Visit Summary Date of Service: 11/29/17 Chief Complaint: [] Chest pain suicidal ideation and history of anxiety depression just discharged from psychiatric facility History of Present Illness: The patient is a 61 F [] the patient has history of cardiac stent chest pain reported RI in 2016 her cardiovascular status has been stable, she indicates [facility] and depression while she was there she feels her medication remission manage she was discharged from there yesterday she is back on her home medications, she reports at 7:00 today she began having chest pressure typical of her angina. She also reports that when she was discharged in the hospital she had persistent suicidal ideation and the staff there would not address and she indicates she is actively suicidal, she is indicating she would prefer to be admitted to the [facility] for mental health disorder not the facility where she was Physical Examination: [] Vital signs are within normal range initially she was in a fib now she is in sinus rhythm on the monitor her vital signs otherwise unremarkable head neck chest unremarkable lungs sound clear the heart tones sound regular the abdomen soft nontender is moving all 4 extremities she had scattered chronic skin changes she is awake and alert there is no psychomotor agitation no delirium no confusion Test Results: [] Emergency Department Course and Treatment: [] I had a long conversation with the patient she has 2 chief complaints one is that she is having chest pain that began at 7 AM, the other complaint is that she is remains actively suicidal and she feels she was not appropriately managed at this facility, at this time we will proceed with cardiovascular medicine evaluation of asked the mental health services Treatment Plan: [] His EKG shows nothing acute, see those reports, all of her labs are generally unremarkable as well see those reports. I will back to reassess her she indicates the chest pain is improved but not gone she has been seen by mental health services they discussed all of her options related to her depression and ongoing anxiety and ongoing chronic intermittent suicidal ideation, they have discussed with her that basically if she is medically clear that they feel it is more appropriate that she be seen at the outpatient acute care center as she does not appear to would benefit from admission for being suicidal she has agreed to that however given her ongoing chest pain history of cardiac stents RI in 2016, I have asked the hospital see her for further management and admission Hospitalist service saw the patient had a long conversation with her the patient has had recurrent chest pain long-standing per their reports and there are evaluation of her history and records she has had multiple prior negative cardiac stress tests. Hospitalist service discussed management with the patient the patient decided she would prefer to go home if second troponin was negative, she further agreed to follow-up with the outpatient psychiatric center as above, The patient's remained asymptomatic her second troponin was negative and she will be discharged home with follow-up as discussed with the hospitalist and mental health services Disposition: [] Home for outpatient management Impression: [] Chest pain history of cardiac stents, history of chronic anxiety depression suicidal ideation recently discharged from psychiatric facility This note was generated with [employer] dictation software. It may contain incorrect words, spelling, and punctuation that were not noted in review of the chart prior to signing ED Disposition - Plan for ED Patient: Chief Complaint: Chest Pain Referrals: Matthew Noble Chi, MD [Primary Care Provider] -
--- NOTE | 2017-11-29 09:33 | ED.RN ---
[facility] TO SEE [facility]IENT
[2017-11-29 09:39] LABS: Anion Gap 8 (5-15); BUN 27 mg/dL (7-18); BUN/Creat Ratio 27.5 RATIO (10-20); Calcium,Total 8.9 mg/dL (8.5-10.1); Chloride 102 mmol/L (98-107); Creatinine, Serum 0.98 mg/dL (0.55-1.02); EST Glomerular Filtration Rate 61 mL/min (>60); Est Glom Filt Rate - Afr Amer 74 mL/min (>60); Estimated Creatinine Clearance 53.56 ml/min; Glucose 359 mg/dL (74-106); Potassium 4.2 mmol/L (3.5-5.1); Sodium Level 137 mmol/L (136-145)
--- NOTE | 2017-11-29 09:39 | RAD_ITS ---
STUDY: X-RAY CHEST REASON FOR EXAM: Female, 61 years old. Chest pain TECHNIQUE: Single AP portable view of the chest. COMPARISON: June 03, 2017. FINDINGS: There are monitoring devices. The lungs are clear and expanded. There is no demonstrated pleural abnormality. Normal size heart. Normal mediastinum and sara. Normal visualized pulmonary arteries. Normal visualized aortic arch and descending thoracic aorta. There is a levoscoliosis of the thoracic spine. Postoperative changes of the cervical spine. Normal visualized ribs, clavicles, and shoulders. There is no demonstrated abnormality of the visualized soft tissue structures of the upper abdomen. RAD/Chest 1 View (Portable) IMPRESSION: Degenerative changes, as described above. No demonstrated acute cardiopulmonary process. Electronically Signed: Yuval Joy MD at 9:47 EDT , Service support ,
[2017-11-29 10:22] LABS: Amphetamine Urine VISTA NEGATIVE (<1000 ng/mL); Barbiturate Urine VISTA NEGATIVE (< 200 ng/mL); Benzodiazepine Urine VISTA NEGATIVE (< 200 ng/mL); Cocaine Urine VISTA NEGATIVE (< 300 ng/mL); Ecstacy Urine VISTA NEGATIVE (< 500 ng/mL); Methadone Urine VISTA NEGATIVE (< 300 ng/mL); PCP Urine VISTA NEGATIVE (< 25 ng/mL); THC Urine VISTA NEGATIVE (< 50 ng/mL); Vista UDS pH Range 5
[2017-11-29] MEDS: 0.9% Normal Saline 1,000 ML 1000 ML IV (10:51)
[2017-11-29] MEDS: Ondansetron 4 MG/2 ML Vial IV (10:51)
[2017-11-29] MEDS: morphine 8 MG/ML Syringe IV (10:51)
[2017-11-29] MEDS: Acetaminophen 500 MG Tablet PO (11:42)
--- NOTE | 2017-11-29 12:54 | PCM.CONS.GEN ---
Problem List (1) Chest pain Status: Acute (2) Suicidal ideation Status: Acute Reason for Consult Date of Consultation: 11/29/17 Reason for Consultation: chest pain. History of Present Illness: The patient is a 61 year old F awoke with chest pain roughly 7:30 AM. Presented to the emergency room and underwent a workup that was thus far unremarkable. In the midst of that workup, patient stated that she had suicidal thoughts. Crisis saw the patient and did not feel the patient required an inpatient stay for her suicidal thoughts as this is some the patient, encounters. Of note, patient was just released from inpatient psychiatric unit yesterday. Patient states that she feels dizzy when she stands up as well. [] Past Medical History Past Medical History (Chronic Problems): Chronic Problems (Last Updated 10/12/17 @ 12:33 by Fatuma Quintana) Takotsubo syndrome (Chronic) Non-rheumatic tricuspid valve insufficiency (Chronic) Dilated cardiomyopathy (Chronic) Atherosclerotic heart disease of [place] coronary artery without angina pectoris (Chronic) Typical atrial flutter (Chronic) Status post placement of implantable loop recorder (Chronic) Implant 07/09 Paroxysmal atrial fibrillation (Chronic) Left ventricular hypertrophy (Chronic) Nicotine abuse (Chronic) Chronic systolic (congestive) heart failure (Chronic) History of coronary artery stent placement (Chronic) [facility] w/PCI, aspiration thrombectomy and FEROZ to mid LAD 04/08/16 Ischemic cardiomyopathy (Chronic) Diabetes mellitus type 2 in nonobese (Chronic) Apical mural thrombus with acute IN (Chronic) COPD (chronic obstructive pulmonary disease) (Chronic) HTN (hypertension) (Chronic) Hyperlipemia (Chronic) Medical History: Medical History (Last Reviewed 11/29/17 @ 12:56 by Yg Moreland DO) Ischemic cardiomyopathy (Chronic) I25.5 Apical mural thrombus with acute IN (Chronic) I21.29 COPD (chronic obstructive pulmonary disease) (Chronic) J44.9 Anxiety F41.9 Depression F32.9 Frequent falls R29.6 IBS (irritable bowel syndrome) K58.9 RLS (restless legs syndrome) G25.81 Cervical spinal stenosis M48.02 Multiple sclerosis G35 BRYAN (obstructive sleep apnea) G47.33 Radiculitis, thoracic M54.14 Lower limb amputation, great toe Z89.419 Acute renal failure (Inactive) Dehydration (Inactive) E86.0 Hypomagnesemia (Inactive) E83.42 Hyponatremia (Inactive) E87.1 Iron deficiency (Inactive) E61.1 Irritable bowel syndrome with diarrhea (Inactive) K58.0 Menopausal disorder (Inactive) N95.9 Metabolic encephalopathy (Inactive) G93.41 due to acute renal failure and overmedication Vitamin B12 deficiency (Inactive) E53.8 Allergies indomethacin [From Indocin] Allergy (Verified 11/29/17 09:05) Hives indomethacin sodium [From Indocin] Allergy (Verified 11/29/17 09:05) Hives iodine Allergy (Verified 11/29/17 09:05) Hives propoxyphene napsylate [From Darvocet-N] Allergy (Verified 11/29/17 09:05) Out of control aspirin Adverse Reaction (Verified 11/29/17 09:05) Upset Stomach when taken in high doses clindamycin Adverse Reaction (Verified 11/29/17 09:05) Nausea sumatriptan [From Imitrex] Adverse Reaction (Verified 11/29/17 09:05) Vomiting Home Medications: Ambulatory Orders Medication Instructions Recorded Aspirin E.C. [Ecotrin] 81 mg PO DAILY@0800 10/21/16 Glimepiride [Amaryl] 4 mg PO BID 10/21/16 Clopidogrel Bisulfate [Plavix] 75 mg PO DAILY 05/18/17 lisinopril 2.5 mg tablet 2.5 mg PO DAILY #28 tab 05/26/17 Teriflunomide [Aubagio] 14 mg PO DAILY 06/02/17 ropinirole 0.5 mg tablet 2 mg PO QHS tab 06/22/17 Docusate Sodium [Colace] 100 mg PO DAILY PRN #30 cap 10/06/17 Insulin Glargine,Hum.rec.anlog 18 unit SQ DAILY 10/06/17 [Lantus Solostar] Isosorbide Mononitrate [Isosorbide 30 mg PO DAILY 10/06/17 Mononitrate ER] Mirtazapine [Remeron] 30 mg PO QHS 10/06/17 Potassium Chloride [K-Dur] 20 meq PO DAILY 10/06/17 Furosemide [Lasix] 40 mg PO DAILY 10/19/17 Methadone HCl 5 mg PO QHS 10/19/17 Promethazine HCl 25 mg PO 4X/DAY PRN 10/19/17 Sucralfate [Carafate] 1 gm PO 4X/DAY 10/19/17 Albuterol Inhaler [Ventolin Hfa 2 puff INHALATION Q6H PRN PRN 10/23/17 (SP)] Carvedilol [Coreg] 3.125 mg PO BID 10/23/17 Cholecalciferol (Vitamin D3) 2,000 unit PO DAILY 10/23/17 [Vitamin D3] Duloxetine Hcl [Cymbalta] 60 mg PO DAILY 10/23/17 Rosuvastatin Calcium 40 mg PO QHS 10/23/17 Senna [Senokot] 1 tablet PO DAILY 10/23/17 Hydroxyzine HCl [Hydroxyzine HCl] 50 mg PO TID PRN PRN 10/26/17 Modafinil [Provigil] 200 mg PO DAILY 10/26/17 Oxycodone HCl/Acetaminophen 1 - 2 tab PO Q4H PRN PRN 10/26/17 [Oxycodone-Acetaminophen 10-325] Permethrin 5% [Permethrin] 1 applic TOPICAL X1 10/26/17 proMETHazine suppository 1 supp RECTALLY Q8H PRN PRN 10/26/17 [Phenergan Suppository] Smz/Tmp Ds [Bactrim Ds] 1 tablet PO BID #6 tablet 11/20/17 Pantoprazole Sodium [Protonix] 40 mg PO DAILY 11/23/17 Surgical History: Surgical History (Last Reviewed 11/29/17 @ 12:56 by Yg Moreland DO) History of back surgery Z98.890 History of carpal tunnel release of both wrists Z98.890 History of cervical discectomy Z98.890 History of tonsillectomy and adenoidectomy Z98.890 History of tubal ligation Z98.51 Surgical History: adenoidectomy, tonsillectomy, - - L foot great toe ampuation, Back surgery x 3, L carpal tunnel surgery x 2, R carpal tunnel surgery x 1, R thumb reconstructive surgery. cervical spinal surgery february 27 at [facility]. 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 Smoking Status: Current every day smoker Tobacco Use: Cigarettes - *Family History Maternal Family History: Family History (Last Reviewed 11/29/17 @ 12:56 by Yg Moreland DO) Father Cancer Mother Cancer History Items: Cancer - mother pancreatic ca Paternal Family History: Family History (Last Reviewed 11/29/17 @ 12:56 by Yg Moreland DO) Father Cancer Mother Cancer History Items: Cancer - father lung ca., - - Lung cancer Review of Systems Constitutional: Denies: Anorexia, Chills, Fever Eyes: Denies: Blurred vision, Double vision HEENT: Denies: Head Aches, Sinus Congestion, Sinus Drainage Cardiovascular: Reports: Chest Pain, Edema Respiratory: Denies: Cough, Shortness of breath at rest, Sputum production Gastrointestinal: Denies: Abdominal Pain, Nausea, Vomiting Genitourinary: Denies: Dysuria Musculoskeletal: Denies: Joint Pain, Joint Tenderness Skin: Denies: Rash, Wounds Neurological: Denies: Numbness, Tingling, Focal weakness Psychiatric: Reports: Anxiety, Depression Hematologic/ Lymphatic: Denies: Easy Bruising, Easy Bleeding, Hx of blood clot Comment: All review of systems are negative except as mentioned in the history of present illness and the other review of systems. Patient Problems: Active and Suspected Problems (Last Updated 10/12/17 @ 12:33 by Fatuma Quintana) Chest pain (Acute) Suicidal ideation (Acute) - Physical Exam General: Alert, Cooperative, No apparent distress HEENT: Atraumatic, Normocephalic Oral: Moist Mucosa, - - Edentulous Neck: No Nodes, Thyroid Normal Size and Texture Lungs: Clear to auscultation, Normal air movement Cardiovascular: Regular rate, No murmurs Abdomen: Bowel Sounds Present, Soft, Non Tender, Non-Distended Extremities: No Calf Tenderness, Edema - +1 in lower extremities Skin: No rashes, No breakdown Musculoskeletal: No Tenderness to Palpation of Joints or Extremities, No Muscle Wasting, - - Reproducible right sided anterior chest wall tenderness to very mild palpation. Psych/Mental Status: Appropriate, Flat Affect Vital Signs Temp Pulse Resp BP Pulse Ox 37.2 C 67 16 121/68 H 99 11/29/17 11:16 11/29/17 12:52 11/29/17 12:52 11/29/17 12:52 11/29/17 12:52 Oxygen Flow Rate (L/min) 2 Oxygen Delivery Method Room Air Weight: 70.307 kg Body Mass Index (BMI) 25.7 Finger Stick Blood Glucose 394 Laboratory Tests Past 24 Hrs 11/29/17 11/29/17 11/29/17 09:08 09:08 09:08 WBC 7.8 RBC 4.01 L Hgb 10.8 L Hct 34.5 L MCV 86.0 MCH 26.9 L MCHC 31.3 L RDW 14.8 H RDW Differential 46.8 H Plt Count 260 MPV 9.5 Immature Gran % (Auto) 0.000 Neut % (Auto) 75.8 H Lymph % (Auto) 11.7 L Morrill % (Auto) 8.1 Eos % (Auto) 3.6 Baso % (Auto) 0.8 Absolute Neuts (auto) 5.9 Absolute Lymphs (auto) 0.91 Total Counted Not Reportable Sodium 137 Potassium 4.2 Chloride 102 Carbon Dioxide 27.0 Anion Gap 8 BUN 27 H Creatinine 0.98 Estim Creat Clear Calc 53.56 Est GFR (MDRD) Af Amer 74 Est GFR (MDRD) Non-Af 61 BUN/Creatinine Ratio 27.5 H Glucose 359 H Calcium 8.9 Troponin I < 0.015 Urine Opiates Screen Urine Methadone Screen Ur Barbiturates Screen Ur Phencyclidine Scrn Ur Amphetamines Screen U Methamphetamin-MDMA U Benzodiazepines Scrn Urine Cocaine Screen U Cannabinoids Screen Ur Drug Screen Comment Ethyl Alcohol 4.0 11/29/17 11/29/17 09:50 12:23 WBC RBC Hgb Hct MCV MCH MCHC RDW RDW Differential Plt Count MPV Immature Gran % (Auto) Neut % (Auto) Lymph % (Auto) Morrill % (Auto) Eos % (Auto) Baso % (Auto) Absolute Neuts (auto) Absolute Lymphs (auto) Total Counted Sodium Potassium Chloride Carbon Dioxide Anion Gap BUN Creatinine Estim Creat Clear Calc Est GFR (MDRD) Af Amer Est GFR (MDRD) Non-Af BUN/Creatinine Ratio Glucose Calcium Troponin I < 0.015 Urine Opiates Screen NEGATIVE Urine Methadone Screen NEGATIVE Ur Barbiturates Screen NEGATIVE Ur Phencyclidine Scrn NEGATIVE Ur Amphetamines Screen NEGATIVE U Methamphetamin-MDMA NEGATIVE U Benzodiazepines Scrn NEGATIVE Urine Cocaine Screen NEGATIVE U Cannabinoids Screen NEGATIVE Ur Drug Screen Comment Ethyl Alcohol Clinical Impression(s) from Imaging Studies Chest X-Ray 11/29/17 09:39 IMPRESSION: Degenerative changes, as described above. No demonstrated acute cardiopulmonary process. Electronically Signed: Yuval Joy MD at 9:47 EDT , Service support , EKG reviewed and showed normal sinus rhythm with no acute changes. Assessment/Plan All Active Problems (Last Updated 10/12/17 @ 12:33 by Fatuma Quintana) Chest pain (Acute) Suicidal ideation (Acute) Acute ST segment elevation IN (Acute) Shortness of breath (Acute) Syncope (Acute) Chest pain (Resolved) STEMI (ST elevation myocardial infarction) (Resolved) Takotsubo cardiomyopathy (Resolved) Takotsubo cardiomyopathy (Resolved) 1. Chest pain Right sided, reproducible. Troponins ?2 were negative Patient had stress test back in October 2016 as well as May 2017 which were both negative. Given the atypical features of her chest pain and previous negative workup and currently I do not feel the patient requires hospitalization for chest pain evaluation. Reassurance was provided to the patient 2. Suicidal ideation No formal plan Seen by crisis who does not feel the patient mandates going to an inpatient facility at this time. Crisis has provided the patient information to do an outpatient program to which patient can do as early as this week. Code Visit Office Visits / Consults: [id number] OP Consult L4
--- NOTE | 2017-11-29 13:00 | CON.PCM_ITS ---
Problem List (1) Chest pain Status: Acute (2) Suicidal ideation Status: Acute Reason for Consult Date of Consultation: 11/29/17 Reason for Consultation: chest pain. History of Present Illness: The patient is a 61 year old F awoke with chest pain roughly 7:30 AM. Presented to the emergency room and underwent a workup that was thus far unremarkable. In the midst of that workup, patient stated that she had suicidal thoughts. Crisis saw the patient and did not feel the patient required an inpatient stay for her suicidal thoughts as this is some the patient , encounters. Of note, patient was just released from inpatient psychiatric unit yesterday. Patient states that she feels dizzy when she stands up as well. [] Past Medical History Past Medical History (Chronic Problems): Chronic Problems (Last Updated 10/12/17 @ 12:33 by Fatuma Quintana) Takotsubo syndrome (Chronic) Non-rheumatic tricuspid valve insufficiency (Chronic) Dilated cardiomyopathy (Chronic) Atherosclerotic heart disease of [place] coronary artery without angina pectoris (Chronic) Typical atrial flutter (Chronic) Status post placement of implantable loop recorder (Chronic) Implant 07/09 Paroxysmal atrial fibrillation (Chronic) Left ventricular hypertrophy (Chronic) Nicotine abuse (Chronic) Chronic systolic (congestive) heart failure (Chronic) History of coronary artery stent placement (Chronic) [facility] w/PCI, aspiration thrombectomy and FEROZ to mid LAD 04/08/16 Ischemic cardiomyopathy (Chronic) Diabetes mellitus type 2 in nonobese (Chronic) Apical mural thrombus with acute CO (Chronic) COPD (chronic obstructive pulmonary disease) (Chronic) HTN (hypertension) (Chronic) Hyperlipemia (Chronic) Medical History: Medical History (Last Reviewed 11/29/17 @ 12:56 by Yg Moreland DO) Ischemic cardiomyopathy (Chronic) I25.5 Apical mural thrombus with acute CO (Chronic) I21.29 COPD (chronic obstructive pulmonary disease) (Chronic) J44.9 Anxiety F41.9 Depression F32.9 Frequent falls R29.6 IBS (irritable bowel syndrome) K58.9 RLS (restless legs syndrome) G25.81 Cervical spinal stenosis M48.02 Multiple sclerosis G35 BRYAN (obstructive sleep apnea) G47.33 Radiculitis, thoracic M54.14 Lower limb amputation, great toe Z89.419 Acute renal failure (Inactive) Dehydration (Inactive) E86.0 Hypomagnesemia (Inactive) E83.42 Hyponatremia (Inactive) E87.1 Iron deficiency (Inactive) E61.1 Irritable bowel syndrome with diarrhea (Inactive) K58.0 Menopausal disorder (Inactive) N95.9 Metabolic encephalopathy (Inactive) G93.41 due to acute renal failure and overmedication Vitamin B12 deficiency (Inactive) E53.8 Allergies indomethacin [From Indocin] Allergy (Verified 11/29/17 09:05) Hives indomethacin sodium [From Indocin] Allergy (Verified 11/29/17 09:05) Hives iodine Allergy (Verified 11/29/17 09:05) Hives propoxyphene napsylate [From Darvocet-N] Allergy (Verified 11/29/17 09:05) Out of control aspirin Adverse Reaction (Verified 11/29/17 09:05) Upset Stomach when taken in high doses clindamycin Adverse Reaction (Verified 11/29/17 09:05) Nausea sumatriptan [From Imitrex] Adverse Reaction (Verified 11/29/17 09:05) Vomiting Home Medications: Ambulatory Orders Medication Instructions Recorded Aspirin E.C. [Ecotrin] 81 mg PO DAILY@0800 10/21/16 Glimepiride [Amaryl] 4 mg PO BID 10/21/16 Clopidogrel Bisulfate [Plavix] 75 mg PO DAILY 05/18/17 lisinopril 2.5 mg tablet 2.5 mg PO DAILY #28 tab 05/26/17 Teriflunomide [Aubagio] 14 mg PO DAILY 06/02/17 ropinirole 0.5 mg tablet 2 mg PO QHS tab 06/22/17 Docusate Sodium [Colace] 100 mg PO DAILY PRN #30 cap 10/06/17 Insulin Glargine,Hum.rec.anlog 18 unit SQ DAILY 10/06/17 [Lantus Solostar] Isosorbide Mononitrate [Isosorbide 30 mg PO DAILY 10/06/17 Mononitrate ER] Mirtazapine [Remeron] 30 mg PO QHS 10/06/17 Potassium Chloride [K-Dur] 20 meq PO DAILY 10/06/17 Furosemide [Lasix] 40 mg PO DAILY 10/19/17 Methadone HCl 5 mg PO QHS 10/19/17 Promethazine HCl 25 mg PO 4X/DAY PRN 10/19/17 Sucralfate [Carafate] 1 gm PO 4X/DAY 10/19/17 Albuterol Inhaler [Ventolin Hfa 2 puff INHALATION Q6H PRN PRN 10/23/17 (SP)] Carvedilol [Coreg] 3.125 mg PO BID 10/23/17 Cholecalciferol (Vitamin D3) 2,000 unit PO DAILY 10/23/17 [Vitamin D3] Duloxetine Hcl [Cymbalta] 60 mg PO DAILY 10/23/17 Rosuvastatin Calcium 40 mg PO QHS 10/23/17 Senna [Senokot] 1 tablet PO DAILY 10/23/17 Hydroxyzine HCl [Hydroxyzine HCl] 50 mg PO TID PRN PRN 10/26/17 Modafinil [Provigil] 200 mg PO DAILY 10/26/17 Oxycodone HCl/Acetaminophen 1 - 2 tab PO Q4H PRN PRN 10/26/17 [Oxycodone-Acetaminophen 10-325] Permethrin 5% [Permethrin] 1 applic TOPICAL X1 10/26/17 proMETHazine suppository 1 supp RECTALLY Q8H PRN PRN 10/26/17 [Phenergan Suppository] Smz/Tmp Ds [Bactrim Ds] 1 tablet PO BID #6 tablet 11/20/17 Pantoprazole Sodium [Protonix] 40 mg PO DAILY 11/23/17 Surgical History: Surgical History (Last Reviewed 11/29/17 @ 12:56 by Yg Moreland DO) History of back surgery Z98.890 History of carpal tunnel release of both wrists Z98.890 History of cervical discectomy Z98.890 History of tonsillectomy and adenoidectomy Z98.890 History of tubal ligation Z98.51 Surgical History: adenoidectomy, tonsillectomy, - - L foot great toe ampuation, Back surgery x 3, L carpal tunnel surgery x 2, R carpal tunnel surgery x 1, R thumb reconstructive surgery. cervical spinal surgery february 27 at [facility]. 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 Smoking Status: Current every day smoker Tobacco Use: Cigarettes - *Family History Maternal Family History: Family History (Last Reviewed 11/29/17 @ 12:56 by Yg Moreland DO) Father Cancer Mother Cancer History Items: Cancer - mother pancreatic ca Paternal Family History: Family History (Last Reviewed 11/29/17 @ 12:56 by Yg Moreland DO) Father Cancer Mother Cancer History Items: Cancer - father lung ca., - - Lung cancer Review of Systems Constitutional: Denies: Anorexia, Chills, Fever Eyes: Denies: Blurred vision, Double vision HEENT: Denies: Head Aches, Sinus Congestion, Sinus Drainage Cardiovascular: Reports: Chest Pain, Edema Respiratory: Denies: Cough, Shortness of breath at rest, Sputum production Gastrointestinal: Denies: Abdominal Pain, Nausea, Vomiting Genitourinary: Denies: Dysuria Musculoskeletal: Denies: Joint Pain, Joint Tenderness Skin: Denies: Rash, Wounds Neurological: Denies: Numbness, Tingling, Focal weakness Psychiatric: Reports: Anxiety, Depression Hematologic/ Lymphatic: Denies: Easy Bruising, Easy Bleeding, Hx of blood clot Comment: All review of systems are negative except as mentioned in the history of present illness and the other review of systems. Patient Problems: Active and Suspected Problems (Last Updated 10/12/17 @ 12:33 by Fatuma Quintana ) Chest pain (Acute) Suicidal ideation (Acute) - Physical Exam General: Alert, Cooperative, No apparent distress HEENT: Atraumatic, Normocephalic Oral: Moist Mucosa, - - Edentulous Neck: No Nodes, Thyroid Normal Size and Texture Lungs: Clear to auscultation, Normal air movement Cardiovascular: Regular rate, No murmurs Abdomen: Bowel Sounds Present, Soft, Non Tender, Non-Distended Extremities: No Calf Tenderness, Edema - +1 in lower extremities Skin: No rashes, No breakdown Musculoskeletal: No Tenderness to Palpation of Joints or Extremities, No Muscle Wasting, - - Reproducible right sided anterior chest wall tenderness to very mild palpation. Psych/Mental Status: Appropriate, Flat Affect Vital Signs Temp Pulse Resp BP Pulse Ox 37.2 C 67 16 121/68 H 99 11/29/17 11:16 11/29/17 12:52 11/29/17 12:52 11/29/17 12:52 11/29/17 12:52 Oxygen Flow Rate (L/min) 2 Oxygen Delivery Method Room Air Weight: 70.307 kg Body Mass Index (BMI) 25.7 Finger Stick Blood Glucose 394 Laboratory Tests Past 24 Hrs 11/29/17 11/29/17 11/29/17 09:08 09:08 09:08 WBC 7.8 RBC 4.01 L Hgb 10.8 L Hct 34.5 L MCV 86.0 MCH 26.9 L MCHC 31.3 L RDW 14.8 H RDW Differential 46.8 H Plt Count 260 MPV 9.5 Immature Gran % (Auto) 0.000 Neut % (Auto) 75.8 H Lymph % (Auto) 11.7 L Ramsey % (Auto) 8.1 Eos % (Auto) 3.6 Baso % (Auto) 0.8 Absolute Neuts (auto) 5.9 Absolute Lymphs (auto) 0.91 Total Counted Not Reportable Sodium 137 Potassium 4.2 Chloride 102 Carbon Dioxide 27.0 Anion Gap 8 BUN 27 H Creatinine 0.98 Estim Creat Clear Calc 53.56 Est GFR (MDRD) Af Amer 74 Est GFR (MDRD) Non-Af 61 BUN/Creatinine Ratio 27.5 H Glucose 359 H Calcium 8.9 Troponin I < 0.015 Urine Opiates Screen Urine Methadone Screen Ur Barbiturates Screen Ur Phencyclidine Scrn Ur Amphetamines Screen U Methamphetamin-MDMA U Benzodiazepines Scrn Urine Cocaine Screen U Cannabinoids Screen Ur Drug Screen Comment Ethyl Alcohol 4.0 11/29/17 11/29/17 09:50 12:23 WBC RBC Hgb Hct MCV MCH MCHC RDW RDW Differential Plt Count MPV Immature Gran % (Auto) Neut % (Auto) Lymph % (Auto) Ramsey % (Auto) Eos % (Auto) Baso % (Auto) Absolute Neuts (auto) Absolute Lymphs (auto) Total Counted Sodium Potassium Chloride Carbon Dioxide Anion Gap BUN Creatinine Estim Creat Clear Calc Est GFR (MDRD) Af Amer Est GFR (MDRD) Non-Af BUN/Creatinine Ratio Glucose Calcium Troponin I < 0.015 Urine Opiates Screen NEGATIVE Urine Methadone Screen NEGATIVE Ur Barbiturates Screen NEGATIVE Ur Phencyclidine Scrn NEGATIVE Ur Amphetamines Screen NEGATIVE U Methamphetamin-MDMA NEGATIVE U Benzodiazepines Scrn NEGATIVE Urine Cocaine Screen NEGATIVE U Cannabinoids Screen NEGATIVE Ur Drug Screen Comment Ethyl Alcohol Clinical Impression(s) from Imaging Studies Chest X-Ray 11/29/17 09:39 IMPRESSION: Degenerative changes, as described above. No demonstrated acute cardiopulmonary process. Electronically Signed: Yuval Joy MD at 9:47 EDT , Service support , EKG reviewed and showed normal sinus rhythm with no acute changes. Assessment/Plan All Active Problems (Last Updated 10/12/17 @ 12:33 by Fatuma Quintana) Chest pain (Acute) Suicidal ideation (Acute) Acute ST segment elevation CO (Acute) Shortness of breath (Acute) Syncope (Acute) Chest pain (Resolved) STEMI (ST elevation myocardial infarction) (Resolved) Takotsubo cardiomyopathy (Resolved) Takotsubo cardiomyopathy (Resolved) 1. Chest pain * Right sided, reproducible. * Troponins ?2 were negative * Patient had stress test back in October 2016 as well as May 2017 which were both negative. * Given the atypical features of her chest pain and previous negative workup and currently I do not feel the patient requires hospitalization for chest pain evaluation. * Reassurance was provided to the patient 2. Suicidal ideation * No formal plan * Seen by crisis who does not feel the patient mandates going to an inpatient facility at this time. * Crisis has provided the patient information to do an outpatient program to which patient can do as early as this week. Code Visit Office Visits / Consults: [id number] OP Consult L4
--- NOTE | 2017-11-29 14:35 | ED.DEP ---
ED Disposition - Plan for ED Patient: Chief Complaint: Chest Pain Instructions: ED Chest Pain Atypical Unkn Cause, ED Depression, ED Contract, No Harm Referrals: Matthew Noble Chi, MD [Primary Care Provider] -
== END 2017-11-29 15:06 | disposition home or self-care (01) ==
PROVIDERS: Emergency Provider Emergency Medicine; Family Provider Family Medicine Geriatric Medicine; PCP Family Medicine Geriatric Medicine
DX: R07.9 Chest pain, unspecified (principal); R45.851 Suicidal ideations; F32.9 Major depressive disorder, single episode, unspecified; F41.9 Anxiety disorder, unspecified; I11.0 Hypertensive heart disease with heart failure; I50.22 Chronic systolic (congestive) heart failure; I42.0 Dilated cardiomyopathy; I48.0 Paroxysmal atrial fibrillation; I48.3 Typical atrial flutter; I25.10 Atherosclerotic heart disease of native coronary artery without angina pectoris; I25.5 Ischemic cardiomyopathy; E11.9 Type 2 diabetes mellitus without complications; G35 Multiple sclerosis; J44.9 Chronic obstructive pulmonary disease, unspecified; E78.5 Hyperlipidemia, unspecified; K58.9 Irritable bowel syndrome, unspecified; G25.81 Restless legs syndrome; M48.02 Spinal stenosis, cervical region; G47.33 Obstructive sleep apnea (adult) (pediatric); M54.14 Radiculopathy, thoracic region; I25.2 Old myocardial infarction; Z72.0 Tobacco use; Z79.02 Long term (current) use of 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/antiplatelets; Z79.82 Long term (current) use of aspirin; Z79.4 Long term (current) use of insulin; Z79.891 Long term (current) use of opiate analgesic; Z79.899 Other long term (current) drug therapy; Z95.5 Presence of coronary angioplasty implant and graft; Z89.419 Acquired absence of unspecified great toe
CPT/HCPCS: 71045; 80048; 80307; 80320; 84484; 85025; 93005; 96374; 96375; 99285; J7030; J7040; A4216; G0480; J2405

== ENCOUNTER 2017-12-01 12:36 | Emergency (ER) | payer MEDICARE, SELFPAY ==
[2016-07-13 11:45] VITALS: BMI 31.4
[2017-12-01] VITALS (8 sets, daily range): BP systolic 94–136; BP diastolic 54–86; PULSE 67–83; RESP 12–18; TEMP 36.4; O2SAT 97–100; BMI 28.0
--- NOTE | 2017-12-01 13:30 | RAD_ITS ---
STUDY: X-RAY CHEST REASON FOR EXAM: Female, 61 years old. Chest pain TECHNIQUE: PA and lateral chest COMPARISON: 11/29/2017 FINDINGS: Multilevel cervical mahendra and screw fixation. Implantable athletic monitor. Clear lungs. Normal cardiomediastinal silhouette, sara and pleural margins. Kyphosis. RAD/Chest PA and Lateral IMPRESSION: No acute cardiopulmonary process. Electronically Signed: Armando Varela, at 15:44 EDT Tel , Service support ,
[2017-12-01 13:46] LABS: Absolute Lymphocyte Count 1.34 X10^3/ul (0.83-4.51); Absolute Neutrophil Count 5.7 X10^3/uL (2.0-7.7); Basophil# 0.08 X10^3/uL; Eosinophil# 0.22 X10^3/uL; Eosinophils% 2.7 % (0-5); Hematocrit 35.4 % (37-47); Hemoglobin 11.1 g/dl (12.0-15.0); Lymphocyte # 1.34 X10^3/ul (4.0); Lymphocyte % 16.5 % (19-41); Mean Corp Hgb Conc 31.4 g/gl (32-36); Mean Corpuscular Hgb 26.8 pg (27.0-32.0); Mean Corpuscular Volume 85.5 fL (81-99); Mean Platelet Vol. 9.8 fl (6.2-12.0); Monocyte# 0.75 X10^3/uL; Monocyte% 9.2 % (0-10); Neutrophil # 5.73 X10^3/uL (2.7-7.7); Neutrophil % 70.4 % (47-70); Platelet Count 272 K/mm3 (150-450); RBC Distribution Width CV 15.1 % (11.6-14.6); RBC Distribution Width SD 47.5 fl (35.1-43.9); Red Blood Count 4.14 M/mm3 (4.2-5.4); White Blood Count 8.1 K/mm3 (4.4-11.0)
[2017-12-01 13:48] LABS: POSITIVE COUNT NO; POSITIVE DIFFERENTIAL NO; POSITIVE MORPHOLOGY NO
--- NOTE | 2017-12-01 13:52 | NURSING ---
ANNA, CRISIS, IN ROOM WITH PATIENT
[2017-12-01 13:57] LABS: Anion Gap 4 (5-15); BUN 16 mg/dL (7-18); BUN/Creat Ratio 17.1 RATIO (10-20); Calcium,Total 9.8 mg/dL (8.5-10.1); Chloride 99 mmol/L (98-107); Creatinine, Serum 0.93 mg/dL (0.55-1.02); EST Glomerular Filtration Rate 65 mL/min (>60); Est Glom Filt Rate - Afr Amer 78 mL/min (>60); Estimated Creatinine Clearance 56.44 ml/min; Glucose 211 mg/dL (74-106); Potassium 3.9 mmol/L (3.5-5.1); Sodium Level 133 mmol/L (136-145)
[2017-12-01] MEDS: Aspirin 81 MG TAB.CHEW 324 MG PO (14:06)
[2017-12-01 14:21] LABS: Bacteria 0 SEEN /hpf (None Seen); Mucous, Urine 0 SEEN /hpf (<or=2+); Red Blood Cells-Urine 0 SEEN /hpf (0-5); White Blood Cells 0 SEEN /hpf (0-5)
[2017-12-01 14:35] LABS: Amphetamine Urine VISTA NEGATIVE (<1000 ng/mL); Barbiturate Urine VISTA NEGATIVE (< 200 ng/mL); Benzodiazepine Urine VISTA NEGATIVE (< 200 ng/mL); Cocaine Urine VISTA NEGATIVE (< 300 ng/mL); Ecstacy Urine VISTA NEGATIVE (< 500 ng/mL); Methadone Urine VISTA NEGATIVE (< 300 ng/mL); PCP Urine VISTA NEGATIVE (< 25 ng/mL); THC Urine VISTA NEGATIVE (< 50 ng/mL); Vista UDS pH Range 7
[2017-12-01 14:47] LABS: Color, Urine Yellow (Yellow); Glucose, Dipstick Normal (Normal); Ketone-Dipstick Negative (Negative); Leukocyte Esterase-Dipstick Negative /ul (Negative); Nitrite-Dipstick Negative (Negative); Occult Blood-Urine Negative /ul (Negative); Protein-Dipstick Negative (Negative); Urine Bilirubin Dipstick Negative (Negative); Urine Clarity Sl. Cloudy (Clear); Urine Urobilinogen Normal (Normal)
[2017-12-01 14:51] LABS: Squamous Epithelial Cells - UA 0-5 SEEN /hpf (5-10)
--- NOTE | 2017-12-01 14:54 | ED.VISSUMM ---
- ER Visit Summary Date of Service: 12/01/17 Chief Complaint: Chest pain and suicidal ideation History of Present Illness: The patient is a 61 F who presents with suicidal ideation that has been off and on for the past 3 weeks. Patient states she is feeling depressed and worthless. Patient states she has thought of overdosing on her medications. Patient states she went to see the counselor today who referred her to the emergency department for medical clearance. Patient states she was having chest pain earlier this week and was seen here for that. Patient states her workup at that time was normal and she was discharged. Patient states she is still having pain in her chest. Patient denies any shortness of breath. Patient denies any nausea or vomiting. Physical Examination: Vital signs are stable. Patient is afebrile. Patient is in no acute distress. Oral mucosa is pink and moist. Neck is supple. Trachea is midline. Is no JVD noted. Heart was regular rate and rhythm. Lungs are clear and equal bilateral. Abdomen is soft. Bowel sounds are normal. Cranial nerves II through XII are intact. There are no focal motor or sensory deficits noted. Patient does have a flat affect and depressed mood. Patient has suicidal thoughts with thoughts of overdosing on medications. The remaining physical exam is within normal limits. Test Results: Chest x-ray does not show any acute cardiopulmonary process. EKG showed normal sinus rhythm with a rate of 82. There are no acute ST or T-wave changes noted. CBC shows a mild anemia with a hemoglobin of 11.1 and hematocrit 35.4. Glucose was slightly elevated to 11. Troponin was normal. Urinalysis was normal. Urine tox screen was negative. Emergency Department Course and Treatment: Case was discussed with the counseling center. He was in to evaluate the patient and agrees that the patient needs to be admitted. He will arrange for admission. Patient understands and is agreeable with the plan. All questions were answered. Disposition: Transfer Impression: Depression with suicidal ideation This note was generated with [employer] dictation software. It may contain incorrect words, spelling, and punctuation that were not noted in review of the chart prior to signing ED Disposition - Plan for ED Patient: Chief Complaint: Suicidal Diagnosis: Depression with suicidal ideation, Chest pain Referrals: Matthew Noble Chi, MD [Primary Care Provider] -
--- NOTE | 2017-12-01 15:46 | ED.RN ---
pt likely will be transferred to [facility].. [facility]. kevin monahan states pt most likely will be accepted there but waiting on an official acceptance thru [facility]
[2017-12-01] MEDS: oxyCODONE 5 MG Tablet 10 MG PO (18:54)
[2017-12-01 20:06] LABS: Bedside Glucose 254 mg/dL (70-110)
--- NOTE | 2017-12-01 20:58 | ED.RN ---
MATA INFORMED OF PT DEPARTURE VIA [facility] TO [place].
== END 2017-12-01 20:06 ==
PROVIDERS: Emergency Provider Emergency Medicine; Family Provider Family Medicine Geriatric Medicine; PCP Family Medicine Geriatric Medicine
DX: F32.9 Major depressive disorder, single episode, unspecified (principal); R45.851 Suicidal ideations; G35 Multiple sclerosis; E11.9 Type 2 diabetes mellitus without complications; I48.91 Unspecified atrial fibrillation; I10 Essential (primary) hypertension; D64.9 Anemia, unspecified; R73.02 Impaired glucose tolerance (oral); F41.9 Anxiety disorder, unspecified; Z72.0 Tobacco use; Z79.02 Long term (current) use of 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/antiplatelets; Z79.82 Long term (current) use of aspirin; Z79.4 Long term (current) use of insulin; Z79.899 Other long term (current) drug therapy; Z87.11 Personal history of peptic ulcer disease
CPT/HCPCS: 71046; 80048; 80307; 80320; 81001; 82962; 84484; 85025; 93005; 99285; A4216; G0480

== ENCOUNTER → 2017-12-14 15:09 | Outpatient (CLI) | payer MEDICARE, SELFPAY ==
[2016-07-13 11:45] VITALS: BMI 31.4
[2017-12-14 17:47] LABS: Absolute Lymphocyte Count 1.64 X10^3/ul (0.83-4.51); Absolute Neutrophil Count 4.9 X10^3/uL (2.0-7.7); Basophil# 0.11 X10^3/uL; Basophil% 1.4 % (0-1); Eosinophil# 0.37 X10^3/uL; Eosinophils% 4.7 % (0-5); Hematocrit 35.7 % (37-47); Lymphocyte # 1.64 X10^3/ul (4.0); Lymphocyte % 20.8 % (19-41); Mean Corp Hgb Conc 30.8 g/gl (32-36); Mean Corpuscular Volume 87.5 fL (81-99); Mean Platelet Vol. 9.9 fl (6.2-12.0); Monocyte# 0.83 X10^3/uL; Monocyte% 10.5 % (0-10); Neutrophil # 4.92 X10^3/uL (2.7-7.7); Neutrophil % 62.5 % (47-70); POSITIVE COUNT NO; POSITIVE DIFFERENTIAL NO; POSITIVE MORPHOLOGY NO; Platelet Count 303 K/mm3 (150-450); RBC Distribution Width CV 15.7 % (11.6-14.6); RBC Distribution Width SD 50.7 fl (35.1-43.9); Red Blood Count 4.08 M/mm3 (4.2-5.4); White Blood Count 7.9 K/mm3 (4.4-11.0)
[2017-12-14 18:00] LABS: Vitamin D,25 Hydroxy 48.6 ng/mL (29.95-100.01)
[2017-12-14 18:50] LABS: ALB/GLOB Ratio 0.9 RATIO (0.9-2.4); AST(SGOT) 15 U/L (15-37); Alanine Aminotransfer ALT/SGPT 27 U/L (13-56); Albumin, Serum 3.2 g/dL (3.2-5.0); Alkaline Phosphatase 140 U/L (45-117); Anion Gap 13 (5-15); BUN 20 mg/dL (7-18); BUN/Creat Ratio 21.9 RATIO (10-20); Calcium,Total 9.4 mg/dL (8.5-10.1); Chloride 105 mmol/L (98-107); Creatinine, Serum 0.92 mg/dL (0.55-1.02); EST Glomerular Filtration Rate 66 mL/min (>60); Est Glom Filt Rate - Afr Amer 80 mL/min (>60); Globulin 3.5 g/dL (2.2-4.2); Glucose 184 mg/dL (74-106); Potassium 4.5 mmol/L (3.5-5.1); Protein, Total 6.7 g/dL (6.4-8.2); Sodium Level 138 mmol/L (136-145); Thyroid Stim Hormone (TSH) 0.57 uIU/mL (0.358-3.74)
== END ==
PROVIDERS: Family Provider Family Medicine Geriatric Medicine; PCP Family Medicine Geriatric Medicine; Visit Provider Family Medicine Geriatric Medicine
DX: E11.9 Type 2 diabetes mellitus without complications (principal); I10 Essential (primary) hypertension; E55.9 Vitamin D deficiency, unspecified
CPT/HCPCS: 36415; 80053; 82306; 84443; 85025

== ENCOUNTER 2017-12-18 16:44 | Emergency (ER) | payer MEDICARE, SELFPAY ==
[2016-07-13 11:45] VITALS: BMI 31.4
[2017-12-18] VITALS (8 sets, daily range): BP systolic 91–177; BP diastolic 58–80; PULSE 67–92; RESP 10–18; TEMP 36.7; O2SAT 94–99; BMI 26.2
[2017-12-18 17:16] LABS: Absolute Lymphocyte Count 1.65 X10^3/ul (0.83-4.51); Absolute Neutrophil Count 4.9 X10^3/uL (2.0-7.7); Basophil# 0.09 X10^3/uL; Basophil% 1.1 % (0-1); Eosinophil# 0.37 X10^3/uL; Eosinophils% 4.7 % (0-5); Hematocrit 39.5 % (37-47); Hemoglobin 12.3 g/dl (12.0-15.0); Lymphocyte # 1.65 X10^3/ul (4.0); Lymphocyte % 21.1 % (19-41); Mean Corp Hgb Conc 31.1 g/gl (32-36); Mean Corpuscular Hgb 26.5 pg (27.0-32.0); Mean Corpuscular Volume 85.1 fL (81-99); Mean Platelet Vol. 9.3 fl (6.2-12.0); Monocyte# 0.82 X10^3/uL; Monocyte% 10.5 % (0-10); Neutrophil # 4.88 X10^3/uL (2.7-7.7); Neutrophil % 62.3 % (47-70); Platelet Count 288 K/mm3 (150-450); RBC Distribution Width CV 15.7 % (11.6-14.6); RBC Distribution Width SD 48.4 fl (35.1-43.9); Red Blood Count 4.64 M/mm3 (4.2-5.4); White Blood Count 7.8 K/mm3 (4.4-11.0)
[2017-12-18 17:17] LABS: POSITIVE COUNT NO; POSITIVE DIFFERENTIAL NO; POSITIVE MORPHOLOGY NO
[2017-12-18] MEDS: Acetaminophen 500 MG Tablet 1000 MG PO (17:27)
[2017-12-18] MEDS: 0.9% Normal Saline 1,000 ML 150 ML IV (17:27)
[2017-12-18 17:39] LABS: AST(SGOT) 19 U/L (15-37); Alanine Aminotransfer ALT/SGPT 28 U/L (13-56); Albumin, Serum 3.8 g/dL (3.2-5.0); Alkaline Phosphatase 151 U/L (45-117); Anion Gap 12 (5-15); BUN 19 mg/dL (7-18); BUN/Creat Ratio 18.3 RATIO (10-20); Calcium,Total 9.6 mg/dL (8.5-10.1); Chloride 104 mmol/L (98-107); Creatinine, Serum 1.04 mg/dL (0.55-1.02); EST Glomerular Filtration Rate 57 mL/min (>60); Est Glom Filt Rate - Afr Amer 69 mL/min (>60); Estimated Creatinine Clearance 49.82 ml/min; Globulin 3.7 g/dL (2.2-4.2); Glucose 146 mg/dL (74-106); Potassium 3.7 mmol/L (3.5-5.1); Protein, Total 7.5 g/dL (6.4-8.2); Sodium Level 138 mmol/L (136-145)
[2017-12-18 17:46] LABS: Acetaminophen (Tylenol) Level < 2.0 ug/mL (10.0-30.0); Salicylate 5.7 mg/dL (2.8-20.0)
[2017-12-18 17:47] LABS: Amphetamine Urine VISTA NEGATIVE (<1000 ng/mL); Barbiturate Urine VISTA NEGATIVE (< 200 ng/mL); Benzodiazepine Urine VISTA NEGATIVE (< 200 ng/mL); Cocaine Urine VISTA NEGATIVE (< 300 ng/mL); Ecstacy Urine VISTA NEGATIVE (< 500 ng/mL); Methadone Urine VISTA NEGATIVE (< 300 ng/mL); PCP Urine VISTA NEGATIVE (< 25 ng/mL); THC Urine VISTA NEGATIVE (< 50 ng/mL); Vista UDS pH Range 5
--- NOTE | 2017-12-18 17:57 | ED.DCSUM_ITS ---
- ER Visit Summary Date of Service: 12/18/17 Chief Complaint: Overdose History of Present Illness: The patient is a [address] Noble in the counseling center. She reports that she was at [facility] 2 -3 weeks ago and was doing okay. However, she reports that today the bank called and she became very upset. She tried to call the counseling center and was not able to speak with someone. Because of this she took 6 mirtazapine, for hydroxyzine, a handful of ibuprofen, and her usual dose of Aricept in an attempt to kill herself. Physical Examination: Vitals: Stable. Afebrile. General: Well-nourished and well-developed. Head: Normocephalic atraumatic. Neck: Supple, no lymphadenopathy. No JVD. Nontender. Cardiovascular: Regular rate and rhythm. No murmurs. Respiratory: No respiratory distress. Clear to auscultation bilaterally. Abdominal: Soft, nontender, nondistended, normal bowel sounds. No guarding, rebound, or peritoneal signs. Back: Nontender. Extremities: Nontender, no edema. Skin: Normal color, no rash. Neurologic: Alert and oriented ?3. Cranial nerves II through XII are intact. Normal strength and sensation. Mental status exam: Patient appears their stated age. Good posture and grooming. Good eye contact. Normal rate, volume, and latency of speech. No homicidal ideation. No auditory or visual hallucinations. Flow of thought is logical. Insight and judgment is fair. Test Results: EKG is sinus at 73 with no acute changes. Is unchanged from earlier this month. CBC is more for monocytes of 11. Chem-7 is more for BUN of 19, creatinine 1.04, glucose 146. LFTs marked for an alk phos 151. Salicylate level is 5.7. Tylenol level is less than 2. Tox screen and alcohol are negative. Emergency Department Course and Treatment: Patient was treated with Tylenol and is resting comfortably. Treatment Plan: Patient was seen by the counseling center in the emergency department. She is medically cleared and they are in the process of getting her placed in a psychiatric facility. Disposition: Pending. Impression: 1. Suicide attempt. This note was generated with [employer] dictation software. It may contain incorrect words, spelling, and punctuation that were not noted in review of the chart prior to signing ED Disposition - Plan for ED Patient: Chief Complaint: Overdose Referrals: Matthew Noble Chi, MD [Primary Care Provider] -
--- NOTE | 2017-12-18 17:57 | NURSING ---
CALLED [facility]. ASHA IS BUSY , SHE WILL BE HERE NEXT
[2017-12-19] VITALS (8 sets, daily range): BP systolic 121; BP diastolic 63; PULSE 64; RESP 14–18; O2SAT 98
--- NOTE | 2017-12-19 01:07 | ED.RN ---
patient pending placement to [facility]
[2017-12-19] MEDS: Acetaminophen 500 MG Tablet 1000 MG PO (07:28)
== END 2017-12-19 07:36 ==
PROVIDERS: Emergency Provider Emergency Medicine; Family Provider Family Medicine Geriatric Medicine; PCP Family Medicine Geriatric Medicine
DX: T43.022A Poisoning by tetracyclic antidepressants, intentional self-harm, initial encounter (principal); T43.592A Poisoning by other antipsychotics and neuroleptics, intentional self-harm, initial encounter; T39.312A Poisoning by propionic acid derivatives, intentional self-harm, initial encounter; T44.1X2A Poisoning by other parasympathomimetics [cholinergics], intentional self-harm, initial encounter; R51 Headache; Y92.9 Unspecified place or not applicable; G35 Multiple sclerosis; I48.91 Unspecified atrial fibrillation; E11.9 Type 2 diabetes mellitus without complications; I10 Essential (primary) hypertension; I11.0 Hypertensive heart disease with heart failure; I50.9 Heart failure, unspecified; F32.9 Major depressive disorder, single episode, unspecified; F41.9 Anxiety disorder, unspecified; Z72.0 Tobacco use; Z79.84 Long term (current) use of oral hypoglycemic drugs; Z79.02 Long term (current) use of 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/antiplatelets; Z79.82 Long term (current) use of aspirin; Z79.891 Long term (current) use of opiate analgesic; Z79.899 Other long term (current) drug therapy
CPT/HCPCS: 80053; 80307; 80320; 80329; 85025; 93005; 99285; G0480

== ENCOUNTER 2018-01-04 14:16 | Emergency (ER) | payer MEDICARE, SELFPAY ==
[2016-07-13 11:45] VITALS: BMI 31.4
[2018-01-04 14:25] VITALS: BP 111/67; PULSE 77; RESP 17; TEMP 36.9; O2SAT 95; BMI 26.8
--- NOTE | 2018-01-04 14:30 | CT_ITS ---
STUDY: CT BRAIN WITHOUT CONTRAST REASON FOR EXAM: Female, 62 years old. Head injury due to a fall. No loss of consciousness. RADIATION DOSAGE (If Supplied By Facility): CTDIvol = ( 44.99 ) mGy, DLP = ( 812.98 ) mGycm TECHNIQUE: Transaxial CT imaging of the brain was performed without administration of intravenous contrast material. Individualized dose optimization techniques were used for this CT. COMPARISON: Comparison is made with prior study dated October 23, 2017. FINDINGS: Normal soft tissue structures. Normal calvarium. There is mild cerebral atrophy with widening of the extra-axial spaces and ventricular dilatation. There are areas of decreased attenuation within the white matter tracts of the supratentorial brain, consistent with microvascular disease changes. Normal basal ganglia and thalami. Normal brainstem. Normal cerebellum. There is no intracranial hemorrhage. There are no findings of an acute ischemic infarction. Atherosclerotic calcification of the cavernous portions of the internal carotid arteries bilaterally. Normal visualized paranasal sinuses. CT/Brain/Head without Contrast IMPRESSION: Normal unenhanced CT scan of the brain. Electronically Signed: Daljit Jordan MD at 15:12 EDT Tel [phone], Service support ,
--- NOTE | 2018-01-04 14:45 | RAD_ITS ---
STUDY: X-RAY - RIGHT HAND REASON FOR EXAM: Female, 62 years old. Pain in the region of the thumb. TECHNIQUE: 3 view(s) of the hand. COMPARISON: None. FINDINGS: Normal radiocarpal articulation. Normal distal radioulnar joint. There is a chondrocalcinosis of the triangular fibrocartilage. Normal visualized carpal bones. Normal carpal articulations There is degenerative arthrosis of the carpometacarpal articulation of the thumb with lateral subluxation of the first metacarpus. Cystic changes at the base of the first metacarpal. Normal second through fifth carpometacarpal joints. Normal metacarpi. Normal metacarpophalangeal joint of the thumb. Normal interphalangeal joint of the thumb. Normal proximal and distal phalanges of the thumb. Normal metacarpophalangeal joints of the second through fifth fingers. Normal proximal and distal interphalangeal joints of the second through fifth fingers. Normal phalanges of the second through fifth fingers. The soft tissue structures are unremarkable. RAD/Hand Min 3 Views IMPRESSION: Degenerative joint disease of the hand, as described above. Electronically Signed: Daljit Jordan MD at 15:15 EDT Tel [phone], Service support ,
[2018-01-04] MEDS: Acetaminophen 325 MG Tablet 650 MG PO (15:04)
--- NOTE | 2018-01-04 15:29 | ED.VISSUMM ---
- ER Visit Summary Date of Service: 01/04/18 Chief Complaint: [Fall] History of Present Illness: The patient is a 62 F [that presents with injury to the back of her head and the right thumb after a mechanical fall when she tripped on a chair walking into her home. No loss of consciousness. She does not take any anticoagulants other than Plavix. She denies any other recent falls or injury. She describes a dull aching pain to her right thumb and a mild headache. She overall appears well and nontoxic. Normal neurological examination. No other complaints.] Physical Examination: [General: The patient appears well and in no apparent distress. Patient is resting comfortably on cart. Skin: Warm, dry, no pallor noted. No rash. Head: Normocephalic, contusion posterior occipital scalp, no laceration Neck: Supple, nontender. FROM. Eye: PERRLA, EOMI ENT: Moist mucus membranes, pharynx within normal limits. Cardiovascular: Regular Rate and Rhythm, no gallups or rubs Respiratory: Patient is in no distress, no accessory muscle use, lungs are clear to auscultation, no wheezing, rales or rhonchi Musculoskeletal: normal ROM, no deformity, mild dorsal R 1st digit tenderness, no swelling. 2+ radial and DP pulses symmetric. FROM all digit. All soft compartments. No snuff box tenderness. GI: No tenderness to palpation, no masses appreciated. No rebound, guarding, or rigidity noted. Neurological: A&O, normal strength and sensation. GCS 15. Psychiatric: Cooperative] Test Results: [CT of the head shows no acute process. X-ray of the right hand shows no acute process.] Emergency Department Course and Treatment: [Given Tylenol for pain. CT imaging of the head and x-ray of the right hand show no acute process. Patient will be advised of signs and symptoms of head injury to return with and she was instructed to ice and elevate her right hand. Follow-up with her primary provider and return with any new or worsening symptoms. Patient understands and is agreeable with this plan of care. Patient was discharged home in stable condition. ] Treatment Plan: [see above] Disposition: [discharge home, stable condition] Impression: [Head injury without concussion, right first digit contusion] This note was generated with [employer] software. It may contain incorrect words, spelling, and punctuation that were not noted in review of the chart prior to signing ED Disposition - Plan for ED Patient: Disposition: Home or Assisted Living Chief Complaint: Fall Instructions: ED Mechanical Fall, ED Head Injury Closed Referrals: Matthew Noble Chi, MD [Primary Care Provider] -
[2018-01-04 15:53] VITALS: PULSE 76; RESP 17; O2SAT 96
== END 2018-01-04 15:54 | disposition home or self-care (01) ==
PROVIDERS: Emergency Provider Emergency Medicine; Family Provider Family Medicine Geriatric Medicine; PCP Family Medicine Geriatric Medicine
DX: S09.90XA Unspecified injury of head, initial encounter (principal); S60.011A Contusion of right thumb without damage to nail, initial encounter; W18.09XA Striking against other object with subsequent fall, initial encounter; Y93.01 Activity, walking, marching and hiking; Y92.009 Unspecified place in unspecified non-institutional (private) residence as the place of occurrence of the external cause; Y99.9 Unspecified external cause status; I48.91 Unspecified atrial fibrillation; I11.0 Hypertensive heart disease with heart failure; I50.9 Heart failure, unspecified; E11.9 Type 2 diabetes mellitus without complications; Z79.02 Long term (current) use of 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/antiplatelets; Z79.82 Long term (current) use of aspirin; Z79.4 Long term (current) use of insulin; Z79.891 Long term (current) use of opiate analgesic; Z79.899 Other long term (current) drug therapy
CPT/HCPCS: 70450; 73130; 99284

== ENCOUNTER 2018-01-06 13:19 | Emergency (ER) | payer MEDICARE, SELFPAY ==
[2016-07-13 11:45] VITALS: BMI 31.4
[2018-01-06 13:20] VITALS: BP 146/85; PULSE 103; RESP 18; TEMP 36.4; O2SAT 95; BMI 25.7
--- NOTE | 2018-01-06 13:35 | EKG12_ITS ---
Test Reason : SUICIDAL Blood Pressure : / mmHG Vent. Rate : 087 BPM Atrial Rate : 087 BPM P-R Int : 150 ms QRS Dur : 086 ms QT Int : 380 ms P-R-T Axes : 056 -59 083 degrees QTc Int : 457 ms Normal sinus rhythm Left axis deviation Inferior infarct , age undetermined Anteroseptal infarct , age undetermined Abnormal ECG Confirmed by DORYS LEMUS MD ([id number]), make up editor ANA MEDRANO ([id number]) on 01/08/2018 1:24:46 PM Referred By: LORETTA Confirmed By:DORYS LEMUS MD
--- NOTE | 2018-01-06 13:37 | ED.DCSUM_ITS ---
- ER Visit Summary Date of Service: 01/06/18 Chief Complaint: Suicidal ideation History of Present Illness: The patient is a [address] Noble and Dr. Rosenbaum. She reports that she has suicidal ideation and began approximately 2 hours ago. She reports that I do not feel like my meds are helping. States that she has a plan to overdose. Physical Examination: Vitals: Stable. Afebrile. General: Well-nourished and well-developed. Head: Normocephalic atraumatic. Neck: Supple, no lymphadenopathy. No JVD. Nontender. Cardiovascular: Regular rate and rhythm. No murmurs. Respiratory: No respiratory distress. Clear to auscultation bilaterally. Abdominal: Soft, nontender, nondistended, normal bowel sounds. No guarding, rebound, or peritoneal signs. Back: Nontender. Extremities: Nontender, no edema. Skin: Normal color, no rash. Neurologic: Alert and oriented ?3. Cranial nerves II through XII are intact. Normal strength and sensation. Mental status exam: Patient appears their stated age. Good posture and grooming. Good eye contact. Normal rate, volume, and latency of speech. No homicidal ideation. No auditory or visual hallucinations. Flow of thought is logical. Insight and judgment is fair. Test Results: EKG is sinus at 87 with Q waves in leads V2 to V4 and inferiorly. However, this is unchanged from last month. CBC is more for white count 11.1 with 77 segmented neutrophils and 14 lymphocytes. Chem-7 is more for potassium 3.4, BUN 19, glucose 138, and calcium of 10.2. Tox screen is negative. Alcohol is negative. Emergency Department Course and Treatment: Patient is resting comfortably without complaint. Patient has had 2 recent admissions to psychiatric facilities. Treatment Plan: Patient was seen by the counseling center in the emergency department. At this point she denies any suicidal ideation is able to contract for safety. She will be discharged instructed to follow the counseling center soon as possible. Return to the emergency department for any thoughts of harming herself.. Disposition: To home in improved and stable condition. Impression: 1. Depression. This note was generated with [employer] dictation software. It may contain incorrect words, spelling, and punctuation that were not noted in review of the chart prior to signing ED Disposition - Plan for ED Patient: Chief Complaint: Suicidal Instructions: ED Depression Referrals: Counseling,Center [GROUP OF PHYSICIANS] - As soon as possible
[2018-01-06 14:04] LABS: Absolute Lymphocyte Count 1.51 X10^3/ul (0.83-4.51); Absolute Neutrophil Count 8.5 X10^3/uL (2.0-7.7); Basophil# 0.07 X10^3/uL; Basophil% 0.6 % (0-1); Eosinophil# 0.17 X10^3/uL; Eosinophils% 1.5 % (0-5); Hematocrit 38.3 % (37-47); Lymphocyte # 1.51 X10^3/ul (4.0); Lymphocyte % 13.6 % (19-41); Mean Corp Hgb Conc 31.3 g/gl (32-36); Mean Corpuscular Hgb 27.1 pg (27.0-32.0); Mean Corpuscular Volume 86.5 fL (81-99); Mean Platelet Vol. 8.9 fl (6.2-12.0); Monocyte# 0.77 X10^3/uL; Neutrophil # 8.53 X10^3/uL (2.7-7.7); Neutrophil % 77.1 % (47-70); POSITIVE COUNT NO; POSITIVE DIFFERENTIAL NO; POSITIVE MORPHOLOGY NO; Platelet Count 294 K/mm3 (150-450); RBC Distribution Width CV 15.3 % (11.6-14.6); RBC Distribution Width SD 48.1 fl (35.1-43.9); Red Blood Count 4.43 M/mm3 (4.2-5.4); White Blood Count 11.1 K/mm3 (4.4-11.0)
[2018-01-06 14:16] LABS: Anion Gap 11 (5-15); BUN 19 mg/dL (7-18); BUN/Creat Ratio 21.3 RATIO (10-20); Calcium,Total 10.2 mg/dL (8.5-10.1); Chloride 103 mmol/L (98-107); Creatinine, Serum 0.89 mg/dL (0.55-1.02); EST Glomerular Filtration Rate 68 mL/min (>60); Est Glom Filt Rate - Afr Amer 82 mL/min (>60); Estimated Creatinine Clearance 58.22 ml/min; Glucose 138 mg/dL (74-106); Potassium 3.4 mmol/L (3.5-5.1); Sodium Level 137 mmol/L (136-145)
[2018-01-06 15:00] VITALS: BP 131/78; PULSE 81; RESP 18; O2SAT 96
[2018-01-06 16:28] LABS: Amphetamine Urine VISTA NEGATIVE (<1000 ng/mL); Barbiturate Urine VISTA NEGATIVE (< 200 ng/mL); Benzodiazepine Urine VISTA NEGATIVE (< 200 ng/mL); Cocaine Urine VISTA NEGATIVE (< 300 ng/mL); Ecstacy Urine VISTA NEGATIVE (< 500 ng/mL); Methadone Urine VISTA NEGATIVE (< 300 ng/mL); PCP Urine VISTA NEGATIVE (< 25 ng/mL); THC Urine VISTA NEGATIVE (< 50 ng/mL); Vista UDS pH Range 5
[2018-01-06 17:00] VITALS: BP 127/72; PULSE 78; RESP 16; O2SAT 97
[2018-01-06 17:34] VITALS: BP 119/77; PULSE 61; RESP 17; O2SAT 98
== END 2018-01-06 17:35 | disposition home or self-care (01) ==
PROVIDERS: Emergency Provider Emergency Medicine; Family Provider Family Medicine Geriatric Medicine; PCP Family Medicine Geriatric Medicine
DX: F32.9 Major depressive disorder, single episode, unspecified (principal); R19.7 Diarrhea, unspecified; I11.0 Hypertensive heart disease with heart failure; I50.9 Heart failure, unspecified; I48.0 Paroxysmal atrial fibrillation; E11.9 Type 2 diabetes mellitus without complications; G35 Multiple sclerosis; F03.90 Unspecified dementia, unspecified severity, without behavioral disturbance, psychotic disturbance, mood disturbance, and anxiety; Z72.0 Tobacco use; Z79.84 Long term (current) use of oral hypoglycemic drugs; Z79.02 Long term (current) use of 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/antiplatelets; Z79.82 Long term (current) use of aspirin; Z79.891 Long term (current) use of opiate analgesic; Z79.899 Other long term (current) drug therapy
CPT/HCPCS: 36415; 80048; 80307; 80320; 85025; 93005; 99283; G0480

== ENCOUNTER 2018-01-07 14:15 | Emergency (ER) | payer MEDICARE, SELFPAY ==
[2016-07-13 11:45] VITALS: BMI 31.4
[2018-01-07 14:20] VITALS: BP 127/77; PULSE 114; RESP 16; TEMP 36.8; O2SAT 98; BMI 26.1
--- NOTE | 2018-01-07 15:15 | NURSING ---
UTILITY ASSEMBLER AT BEDSIDE DRAWING BLOOD. CLOTH TRIMMER HAND AT BEDSIDE SITTER. PT IS CURRENTLY BEING COOPERATIVE.
[2018-01-07 15:26] LABS: Absolute Neutrophil Count 14.9 X10^3/uL (2.0-7.7); Basophil# 0.07 X10^3/uL; Basophil% 0.4 % (0-1); Eosinophil# 0.19 X10^3/uL; Eosinophils% 1.1 % (0-5); Hematocrit 40.8 % (37-47); Lymphocyte % 7.9 % (19-41); Mean Corp Hgb Conc 31.9 g/gl (32-36); Mean Corpuscular Volume 84.8 fL (81-99); Mean Platelet Vol. 8.7 fl (6.2-12.0); Monocyte# 1.07 X10^3/uL; Monocyte% 6.1 % (0-10); Neutrophil # 14.92 X10^3/uL (2.7-7.7); Neutrophil % 84.3 % (47-70); Platelet Count 291 K/mm3 (150-450); RBC Distribution Width CV 15.4 % (11.6-14.6); RBC Distribution Width SD 47.5 fl (35.1-43.9); Red Blood Count 4.81 M/mm3 (4.2-5.4); White Blood Count 17.7 K/mm3 (4.4-11.0)
[2018-01-07 15:36] LABS: Anion Gap 10 (5-15); BUN 24 mg/dL (7-18); BUN/Creat Ratio 25.9 RATIO (10-20); Calcium,Total 10.2 mg/dL (8.5-10.1); Chloride 106 mmol/L (98-107); Creatinine, Serum 0.93 mg/dL (0.55-1.02); EST Glomerular Filtration Rate 65 mL/min (>60); Est Glom Filt Rate - Afr Amer 79 mL/min (>60); Estimated Creatinine Clearance 55.71 ml/min; Glucose 193 mg/dL (74-106); Potassium 3.5 mmol/L (3.5-5.1); Sodium Level 139 mmol/L (136-145)
[2018-01-07 15:42] LABS: POSITIVE COUNT NO; POSITIVE DIFFERENTIAL NO; POSITIVE MORPHOLOGY NO
--- NOTE | 2018-01-07 16:11 | ED.DCSUM_ITS ---
- ER Visit Summary Date of Service: 01/07/18 Chief Complaint: Suicidal ideation History of Present Illness: The patient is a 62 F with history of depression. Patient reports increasing suicidal ideation for the past 6 days. She was seen in the ER last night. She had signed a safety agreement but states after getting home she took 4 tabs of Remeron. She states that she feels worthless and she did not care whether she woke up or not. She did go to her appointment at the counseling center today and was brought to the emergency room. Physical Examination: Vital signs significant for heart rate of 114, otherwise unremarkable. Head neck examination unremarkable. Heart is regular rate and rhythm. Lung sounds are clear. Abdomen is soft and nontender. Skin examination reveals no rash or lesions Psychiatric evaluation reveals depressed affect with continued suicidal thoughts. Test Results: CBC was a white count 17.7 with 84% neutrophils. Chemistry studies significant for glucose of 193. Tox screen is unremarkable. EtOH is negative. Urinalysis shows 10-25 white cells with 5-10 epithelials. Rare bacteria is noted. Emergency Department Course and Treatment: Patient is uncooperative throughout her ED stay. Her white count is elevated compared to yesterday's with a left shift. We will treat her with Keflex and send a urine culture. She will require transfer to a psychiatric facility for treatment. Treatment Plan: [] Disposition: Transfer Impression: 1. Suicidal ideation 2. Intentional drug ingestion 3. Cystitis This note was generated with [employer] (acquired by [employer] in 2014) dictation software. It may contain incorrect words, spelling, and punctuation that were not noted in review of the chart prior to signing ED Disposition - Plan for ED Patient: Chief Complaint: Suicidal Referrals: Matthew Noble Chi, MD [Primary Care Provider] -
[2018-01-07 16:16] LABS: Mucous, Urine 0 SEEN /hpf (<or=2+); Red Blood Cells-Urine 0 SEEN /hpf (0-5)
[2018-01-07] MEDS: LORazepam 0.5 MG Tablet PO (16:23)
[2018-01-07 16:25] LABS: Color, Urine Yellow (Yellow); Glucose, Dipstick Normal (Normal); Ketone-Dipstick Negative (Negative); Leukocyte Esterase-Dipstick 500 /ul (Negative); Nitrite-Dipstick Negative (Negative); Occult Blood-Urine Negative /ul (Negative); Protein-Dipstick Negative (Negative); Urine Bilirubin Dipstick Negative (Negative); Urine Clarity Sl. Cloudy (Clear); Urine Urobilinogen Normal (Normal)
[2018-01-07 16:28] LABS: Amphetamine Urine VISTA NEGATIVE (<1000 ng/mL); Barbiturate Urine VISTA NEGATIVE (< 200 ng/mL); Benzodiazepine Urine VISTA NEGATIVE (< 200 ng/mL); Cocaine Urine VISTA NEGATIVE (< 300 ng/mL); Ecstacy Urine VISTA NEGATIVE (< 500 ng/mL); Methadone Urine VISTA NEGATIVE (< 300 ng/mL); PCP Urine VISTA NEGATIVE (< 25 ng/mL); THC Urine VISTA NEGATIVE (< 50 ng/mL); Vista UDS pH Range 6
[2018-01-07 16:34] LABS: Amorphous Sediment 1+ URATE; Bacteria RARE /hpf (None Seen); Squamous Epithelial Cells - UA 5-10 SEEN /hpf (5-10); White Blood Cells 10-25 SEEN /hpf (0-5)
[2018-01-07] MEDS: Cephalexin 250 MG Capsule 500 MG PO (16:55)
[2018-01-07 17:47] VITALS: BP 132/80; PULSE 72; RESP 17; O2SAT 100
[2018-01-07 20:44] VITALS: BP 110/49; PULSE 89; RESP 18; O2SAT 96
[2018-01-07 21:09] VITALS: RESP 16
[2018-01-07 22:17] VITALS: RESP 16
--- NOTE | 2018-01-07 23:01 | ED.RN ---
[facility] called and has accepted patient at this time
--- NOTE | 2018-01-07 23:13 | ED.RN ---
CALLED [facility] TO TRANSPORT PATIENT TO [facility]. DISPATCHER STATED THAT THEY CANNOT DO THE TRANSFER UNTIL FIRST THING IN THE MORNING. [facility] AND DISPATCHER STATED THEY CANNOT DO THE TRANSFER UNTIL THE MORNING.
[2018-01-07 23:54] VITALS: RESP 16
[2018-01-08] VITALS (8 sets, daily range): BP systolic 120–137; BP diastolic 66–85; PULSE 76–91; RESP 14–18; O2SAT 98–99
[2018-01-08] MEDS: Pramipexole Di-HCl 1 MG Tablet PO (01:02)
[2018-01-08] MEDS: Donepezil HCl 10 MG Tablet 20 MG PO (01:02)
[2018-01-08] MEDS: Atorvastatin Calcium 80 MG Tablet PO (01:02)
--- NOTE | 2018-01-08 03:00 | ED.RN ---
bedside sitter present for one on one observation of patient
[2018-01-08] MEDS: Acetaminophen 500 MG Tablet 1000 MG PO (03:49)
--- NOTE | 2018-01-08 07:06 | NURSING ---
CALLED [facility], ETA IS 45 MIN
[2018-01-08] MEDS: Furosemide 40 MG Tablet PO (07:26)
[2018-01-08] MEDS: Aspirin 81 MG TAB.CHEW PO (07:26)
[2018-01-08] MEDS: Clopidogrel Bisulfate 75 MG Tablet PO (07:26)
[2018-01-08] MEDS: Modafinil 200 MG Tablet PO (07:26)
[2018-01-08] MEDS: Glimepiride 4 MG Tablet PO (07:27)
[2018-01-08] MEDS: Carvedilol 3.125 MG TABLET PO (07:27)
[2018-01-08] MEDS: Ferrous Sulfate 325 MG Tablet PO (07:27)
[2018-01-08] MEDS: DULoxetine Hcl 60 MG Capsule PO (07:27)
[2018-01-08] MEDS: ARIPiprazole 5 MG Tablet PO (07:27)
[2018-01-08] MEDS: Isosorbide Mononitrate 30 MG Tablet PO (07:27)
[2018-01-08] MEDS: Lisinopril 2.5 MG Tablet PO (07:28)
[2018-01-08] MEDS: Sucralfate 1 GM Tablet PO (07:28)
[2018-01-08 07:42] LABS: Bedside Glucose 173 mg/dL (70-110)
== END 2018-01-08 07:59 ==
LOC: ED 15:12
PROVIDERS: Emergency Provider Emergency Medicine; Family Provider Family Medicine Geriatric Medicine; PCP Family Medicine Geriatric Medicine
DX: T43.022A Poisoning by tetracyclic antidepressants, intentional self-harm, initial encounter (principal); Y92.9 Unspecified place or not applicable; N30.90 Cystitis, unspecified without hematuria; I11.0 Hypertensive heart disease with heart failure; I50.9 Heart failure, unspecified; I48.0 Paroxysmal atrial fibrillation; G35 Multiple sclerosis; E11.9 Type 2 diabetes mellitus without complications; I48.92 Unspecified atrial flutter; I42.0 Dilated cardiomyopathy; Z79.899 Other long term (current) drug therapy; Z72.0 Tobacco use; I25.2 Old myocardial infarction; Z86.73 Personal history of transient ischemic attack (TIA), and cerebral infarction without residual deficits
CPT/HCPCS: 36415; 80048; 80307; 80320; 81001; 82962; 85025; 87086; 87088; 99285; G0480

== ENCOUNTER 2018-02-23 19:31 | Emergency (ER) | payer MEDICARE, SELFPAY ==
[2016-07-13 11:45] VITALS: BMI 31.4
[2018-02-23 19:32] VITALS: BP 117/87; PULSE 56; RESP 14; TEMP 36.9; O2SAT 98; BMI 27.2
--- NOTE | 2018-02-23 19:38 | ED.RN ---
RN CALLED FOR EKG, PULLED OLD EKGS FOR
[2018-02-23 19:39] VITALS: PULSE 56; RESP 17; O2SAT 98
--- NOTE | 2018-02-23 19:45 | ED.RN ---
SUICIDAL PRECAUTIONS INITIATED PER PT RESPONSES TO SUICIDE SCREENING. THIS RN IN ROOM WITH PT UNTIL 1:1 SITTER ASSIGNED.
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
--- NOTE | 2018-02-23 20:02 | ED.RN ---
[facility] AWARE THIS PT IS HERE AND WILL NEED TO BE SEEN
--- NOTE | 2018-02-23 20:09 | EKG12_ITS ---
Test Reason : CHEST PAIN Blood Pressure : / mmHG Vent. Rate : 054 BPM Atrial Rate : 054 BPM P-R Int : 126 ms QRS Dur : 100 ms QT Int : 480 ms P-R-T Axes : 014 -39 036 degrees QTc Int : 455 ms Sinus bradycardia Left axis deviation Cannot rule out Inferior infarct , age undetermined Cannot rule out Anterior infarct , age undetermined Abnormal ECG Confirmed by ALLAN WITT, DORYS ([id number]), editor magazine ANA MEDRANO ([id number]) on 03/03/2018 1:44:25 PM Referred By: VANCE Confirmed By:DORYS LEMUS MD
--- NOTE | 2018-02-23 20:09 | RAD_ITS ---
STUDY: X-RAY - CERVICAL SPINE REASON FOR EXAM: Female, 62 years old. Fall TECHNIQUE: 4 view(s) of the cervical spine were obtained. COMPARISON: None FINDINGS: Normal anterior atlantoaxial articulation. Normal odontoid process. Normal cervical lordosis. Surgical fusion of C4-C6 with laminectomies. Normal vertebral bodies. Mild spurring at C5-6 endplates. Slightly narrowed C5-6 disc space. The soft tissue structures are unremarkable. RAD/Cerv Spine 2 or 3 Views IMPRESSION: Postsurgical and mild degenerative changes of the visualized cervical spine. Electronically Signed: Vijay Jain DO at 21:04 EDT Tel [phone], Service support ,
--- NOTE | 2018-02-23 20:09 | RAD_ITS ---
STUDY: X-RAY - LUMBAR SPINE REASON FOR EXAM: Female, 62 years old. Posttraumatic pain TECHNIQUE: 3 view(s) of the lumbar spine were obtained. COMPARISON: May 09, 2013 FINDINGS: Exaggerated lumbar lordosis. There is mild dextroscoliosis of the upper lumbar spine and compensatory levoscoliosis of the lumbar spine. There are postsurgical changes status post laminectomy at L5-S1 and L4-5 No evidence for acute fracture or subluxation Multilevel disc space narrowing and osteophytic spurring.. There also appears to be spinal stenosis at L3-4, L4-5 and L5-S1 secondary to combination of facet arthropathy and mild shortening of the pedicles Vascular calcification of the aorta without evidence for aneurysm RAD/Lumbar Spine 2 or 3 Views IMPRESSION: Scoliosis and degenerative changes as well as postsurgical changes but no evidence for acute fracture. Electronically Signed: Brant Albarran MD at 21:02 EDT , Service support ,
[2018-02-23] MEDS: Aspirin 81 MG TAB.CHEW 324 MG PO (20:21)
[2018-02-23] MEDS: Morphine 4 MG/ML Syringe IV (20:22)
[2018-02-23 20:24] LABS: Absolute Lymphocyte Count 1.53 X10^3/ul (0.83-4.51); Absolute Neutrophil Count 2.7 X10^3/uL (2.0-7.7); Basophil# 0.09 X10^3/uL; Basophil% 1.7 % (0-1); Eosinophil# 0.35 X10^3/uL; Eosinophils% 6.4 % (0-5); Hematocrit 38.8 % (37-47); Hemoglobin 12.9 g/dl (12.0-15.0); Lymphocyte # 1.53 X10^3/ul (4.0); Lymphocyte % 28.2 % (19-41); Mean Corp Hgb Conc 33.2 g/gl (32-36); Mean Corpuscular Hgb 28.4 pg (27.0-32.0); Mean Corpuscular Volume 85.5 fL (81-99); Monocyte# 0.76 X10^3/uL; Neutrophil # 2.69 X10^3/uL (2.7-7.7); Neutrophil % 49.5 % (47-70); Platelet Count 244 K/mm3 (150-450); RBC Distribution Width CV 14.2 % (11.6-14.6); RBC Distribution Width SD 43.4 fl (35.1-43.9); Red Blood Count 4.54 M/mm3 (4.2-5.4); White Blood Count 5.4 K/mm3 (4.4-11.0)
[2018-02-23 20:26] LABS: POSITIVE COUNT NO; POSITIVE DIFFERENTIAL NO; POSITIVE MORPHOLOGY NO
--- NOTE | 2018-02-23 20:27 | ED.RN ---
PT DENIES SUICIDAL IDEATION TO MD. PER MD SUICIDAL PRECAUTIONS DISCONTINUED. 1:1 SITTER HAD BEEN INITIATED AND IN ROOM SINCE ARRIVAL.
[2018-02-23 20:31] VITALS: BP 168/65; PULSE 77; RESP 16; O2SAT 98
--- NOTE | 2018-02-23 20:35 | RAD_ITS ---
STUDY: X-RAY CHEST REASON FOR EXAM: Female, 62 years old. Fall TECHNIQUE: Single frontal view COMPARISON: December 01, 2017 FINDINGS: The lungs are clear and expanded. There is no demonstrated pleural abnormality. Normal size heart. Normal mediastinum and sara. Normal visualized pulmonary arteries. Normal visualized aortic arch and descending thoracic aorta. Degenerative changes of the thoracic spine. Status post surgical fusion of the cervical column. Normal visualized ribs, clavicles, and shoulders. There is no demonstrated abnormality of the visualized soft tissue structures of the upper abdomen. RAD/Chest 1 View (Portable) IMPRESSION: Normal x-ray examination of the chest. Electronically Signed: Vijay Jain DO at 21:02 EDT Tel [phone], Service support ,
[2018-02-23 20:42] LABS: Anion Gap 9 (5-15); BUN 20 mg/dL (7-18); BUN/Creat Ratio 24.9 RATIO (10-20); Calcium,Total 9.4 mg/dL (8.5-10.1); Chloride 101 mmol/L (98-107); EST Glomerular Filtration Rate 77 mL/min (>60); Est Glom Filt Rate - Afr Amer 93 mL/min (>60); Estimated Creatinine Clearance 64.77 ml/min; Glucose 87 mg/dL (74-106); Sodium Level 137 mmol/L (136-145)
[2018-02-23 21:00] VITALS: BP 115/65; PULSE 50; RESP 12; O2SAT 97
[2018-02-23 22:00] VITALS: BP 116/58; PULSE 50; RESP 14; O2SAT 97
--- NOTE | 2018-02-23 22:36 | ED.VISSUMM ---
- ER Visit Summary Date of Service: 02/23/18 Chief Complaint: Chest pain History of Present Illness: The patient is a 62 F with substernal chest pain. It radiates down her left arm. It has been going on for about 2 hours. The patient reports earlier today that she fell. She hurt her neck and back, but did not lose consciousness. Denies head pain. Denies weakness or numbness. Denies vision changes or facial droop. Denies speech changes. Denies shortness of breath or respiratory symptoms. Denies any lightheadedness or dizziness. Denies any nausea or vomiting. No abdominal pain, GI symptoms, or symptoms. Patient did tell nursing that she is suicidal and is planning to overdose. Physical Examination: Patient is afebrile and vital signs are unremarkable. Head and neck are atraumatic, but cervical spine is diffusely tender to palpation with light touch. Heart regular rhythm, bradycardic. Lungs clear. Abdomen soft and nontender. Back is diffusely tender to palpation in the lumbar region. Straight leg raise is negative. Good strength and sensation. Extremities are atraumatic. No edema. Test Results: EKG showed sinus rhythm at a rate of 54. No sign of acute ischemia or infarction pattern. CBC normal. Potassium 3.0. BUN 20. Troponin normal. Chest x-ray shows chronic changes only. X-rays of the lumbar and cervical spine show chronic changes only. Emergency Department Course and Treatment: Patient was seen on arrival. She had an EKG and was placed on the monitor I had a lengthy discussion with the patient. She has many visits for chest pain and suicidal ideation. She does have a history of coronary disease. She has had multiple evaluations for this. Most recently her stress test was done in May that showed no signs of ischemic change. I asked the patient what has been going on to cause all these visits. She tells me that she is tired of having pain. She told me that she thinks if she tells nursing that she is suicidal, she will get admitted. She thinks that this will help her get admitted so they can find out what is causing her chronic pain. I advised her that I did not feel a psychiatric admission would help explain why she has chronic pain. She became tearful and said that she did not want to be admitted to a psychiatric facility. She says that she is not suicidal and does not have an active plan. She only said that to try to get admitted. She is looking forward to an upcoming vacation is not suicidal. I did check labs and a troponin. She was hypokalemic and treated with potassium. Patient has no other new or acute findings. I have low suspicion for ACS, PE, dissection. Nothing to suggest infection or lung disease. Her cervical spine and lumbar spine x-rays are unremarkable. There is no objective visible evidence of trauma. Patient treated for pain. She was advised that she will follow-up with her outpatient doctor. Treatment Plan: As above Disposition: Discharge Impression: 1. Chest pain unclear etiology 2. Back pain 3. Hypokalemia This note was generated with [employer] dictation software. It may contain incorrect words, spelling, and punctuation that were not noted in review of the chart prior to signing ED Disposition - Plan for ED Patient: Chief Complaint: Chest Pain Referrals: Matthew Noble Chi, MD [Primary Care Provider] -
--- NOTE | 2018-02-23 22:41 | ED.DCSUM_ITS ---
- ER Visit Summary Date of Service: 02/23/18 Chief Complaint: Chest pain History of Present Illness: The patient is a 62 F with substernal chest pain. It radiates down her left arm. It has been going on for about 2 hours. The patient reports earlier today that she fell. She hurt her neck and back, but d id not lose consciousness. Denies head pain. Denies weakness or numbness. Denies vision changes or facial droop. Denies speech changes. Denies shortness of breath or respiratory symptoms. Denies any lightheadedness or dizziness. Denies any nausea or vomiting. No abdominal pain, GI symptoms, or symptoms. Patient did tell nursing that she is suicidal and is planning to overdose. Physical Examination: Patient is afebrile and vital signs are unremarkable. Head and neck are atraumatic, but cervical spine is diffusely tender to palpation with light touch. Heart regular rhythm, bradycardic. Lungs clear. Abdomen soft and nontender. Back is diffusely tender to palpation in the lumbar region. Straight leg raise is negative. Good strength and sensation. Extre mities are atraumatic. No edema. Test Results: EKG showed sinus rhythm at a rate of 54. No sign of acute ischemia or infarction pattern. CBC normal. Potassium 3.0. BUN 20. Troponin normal. Chest x-ray shows chronic changes only. X-rays of the lumbar and cervical spine show chronic changes only. Emergency Department Course and Treatment: Patient was seen on arrival. She had an EKG and was placed on the monitor I had a lengthy discussion with the patient. She has many visits for chest pain and suicidal ideation. She does have a history of coronary disease. She has had multiple evaluations for this. Most recently her stress test was done in May that showed no signs of ischemic change. I asked the patient what has been going on to cause all these visits. She tells me that she is tired of having pain. She told me that she thinks if she tells nursing that she is suicidal, she will get admitted. She thinks that this will help her get admitted so they can find out what is causing her chronic pain. I advised her that I did not feel a psychiatric admission would help explain why she has chronic pain. She became tearful and said that she did not want to be admitted to a psychiatric facility. She says that she is not suicidal and does not have an active plan. She only said that to try to get admitted. She is looking forward to an upcoming vacation is not suicidal. I did check labs and a troponin. She was hypokalemic and treated with potassium. Patient has no other new or acute findings. I have low suspicion for ACS, PE, dissection. Nothing to suggest infection or lung disease. Her cervical spine and lumbar spine x-rays are unremarkable. There is no objective visible evidence of trauma. Patient treated for pain. She was advised that she will follow-up with her outpatient doctor. Treatment Plan: As above Disposition: Discharge Impression: 1. Chest pain unclear etiology 2. Back pain 3. Hypokalemia This note was generated with [employer] dictation software. It may contain incorrect words, spelling, and punctuation that were not noted in review of the chart prior to signing ED Disposition - Plan for ED Patient: Chief Complaint: Chest Pain Referrals: Matthew Noble Chi, MD [Primary Care Provider] -
--- NOTE | 2018-02-23 22:43 | ED.DEP ---
ED Disposition - Plan for ED Patient: Chief Complaint: Chest Pain Instructions: ED Chest Pain Atypical Unkn Cause Referrals: Matthew Noble Chi, MD [Primary Care Provider] -
[2018-02-23 22:47] VITALS: BP 130/73; PULSE 67; RESP 20; O2SAT 97
== END 2018-02-23 23:07 | disposition home or self-care (01) ==
PROVIDERS: Emergency Provider Emergency Medicine; Family Provider Family Medicine Geriatric Medicine; PCP Family Medicine Geriatric Medicine
DX: R07.9 Chest pain, unspecified (principal); M54.9 Dorsalgia, unspecified; G89.29 Other chronic pain; E87.6 Hypokalemia; I25.10 Atherosclerotic heart disease of native coronary artery without angina pectoris; I11.0 Hypertensive heart disease with heart failure; I50.9 Heart failure, unspecified; E11.9 Type 2 diabetes mellitus without complications; I48.91 Unspecified atrial fibrillation; J44.9 Chronic obstructive pulmonary disease, unspecified; Z72.0 Tobacco use; I25.2 Old myocardial infarction; Z79.02 Long term (current) use of 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/antiplatelets; Z79.82 Long term (current) use of aspirin; Z79.4 Long term (current) use of insulin; Z79.899 Other long term (current) drug therapy
CPT/HCPCS: 71045; 72040; 72100; 80048; 84484; 85025; 93005; 96374; 99285; A4216

== ENCOUNTER 2018-03-03 13:41 | Emergency (ER) | payer MEDICARE, SELFPAY ==
[2016-07-13 11:45] VITALS: BMI 31.4
[2018-03-03 13:42] VITALS: BP 112/84; PULSE 81; RESP 20; TEMP 36.8; O2SAT 97; BMI 26.8
--- NOTE | 2018-03-03 13:47 | EKG12_ITS ---
Test Reason : SUICIDAL Blood Pressure : / mmHG Vent. Rate : 075 BPM Atrial Rate : 075 BPM P-R Int : 168 ms QRS Dur : 092 ms QT Int : 420 ms P-R-T Axes : 033 -71 056 degrees QTc Int : 469 ms Normal sinus rhythm Possible Left atrial enlargement Left axis deviation Low voltage QRS Inferior infarct , age undetermined Cannot rule out Anteroseptal infarct , age undetermined Abnormal ECG Confirmed by JURGEN AARON ([id number]), magazine editor ANA MEDRANO ([id number]) on 03/08/2018 2:32:52 PM Referred By: RADHA Confirmed By:JURGEN AARON
--- NOTE | 2018-03-03 14:20 | RAD_ITS ---
STUDY: X-RAY CHEST REASON FOR EXAM: Female, 62 years old. Tachycardia. Shortness of breath and dyspnea. TECHNIQUE: Single AP portable view of the chest. COMPARISON: Comparison is made with prior study dated February 23, 2018. FINDINGS: The lungs are clear and expanded. There is no demonstrated pleural abnormality. Normal size heart. Normal mediastinum and sara. Normal visualized pulmonary arteries. Normal visualized aortic arch and descending thoracic aorta. Normal visualized thoracic spine. Prior laminectomy and fusion in the lower cervical spine. There is no demonstrated abnormality of the visualized soft tissue structures of the upper abdomen. RAD/Chest 1 View (Portable) IMPRESSION: No acute abnormality is seen. Electronically Signed: Daljit Jordan MD at 15:03 EST Tel [phone], Service support ,
[2018-03-03 14:34] LABS: Absolute Lymphocyte Count 1.27 X10^3/ul (0.83-4.51); Absolute Neutrophil Count 6.2 X10^3/uL (2.0-7.7); Basophil# 0.05 X10^3/uL; Basophil% 0.6 % (0-1); Eosinophils% 1.2 % (0-5); Hematocrit 39.9 % (37-47); Hemoglobin 13.2 g/dl (12.0-15.0); Lymphocyte # 1.27 X10^3/ul (4.0); Lymphocyte % 15.1 % (19-41); Mean Corp Hgb Conc 33.1 g/gl (32-36); Mean Corpuscular Hgb 27.7 pg (27.0-32.0); Mean Corpuscular Volume 83.6 fL (81-99); Mean Platelet Vol. 9.9 fl (6.2-12.0); Monocyte# 0.78 X10^3/uL; Monocyte% 9.3 % (0-10); Neutrophil # 6.18 X10^3/uL (2.7-7.7); Neutrophil % 73.7 % (47-70); Platelet Count 244 K/mm3 (150-450); RBC Distribution Width CV 13.4 % (11.6-14.6); RBC Distribution Width SD 40.9 fl (35.1-43.9); Red Blood Count 4.77 M/mm3 (4.2-5.4); White Blood Count 8.4 K/mm3 (4.4-11.0)
[2018-03-03 14:35] LABS: POSITIVE COUNT NO; POSITIVE DIFFERENTIAL NO; POSITIVE MORPHOLOGY NO
[2018-03-03 14:42] VITALS: BP 122/83; PULSE 89; RESP 21; O2SAT 98
[2018-03-03 14:42] LABS: ALB/GLOB Ratio 0.9 RATIO (0.9-2.4); AST(SGOT) 22 U/L (15-37); Alanine Aminotransfer ALT/SGPT 26 U/L (13-56); Albumin, Serum 3.2 g/dL (3.2-5.0); Alkaline Phosphatase 118 U/L (45-117); Anion Gap 10 (5-15); BUN 18 mg/dL (7-18); BUN/Creat Ratio 20.4 RATIO (10-20); Calcium,Total 8.9 mg/dL (8.5-10.1); Chloride 95 mmol/L (98-107); Creatinine, Serum 0.88 mg/dL (0.55-1.02); EST Glomerular Filtration Rate 69 mL/min (>60); Est Glom Filt Rate - Afr Amer 83 mL/min (>60); Estimated Creatinine Clearance 58.88 ml/min; Globulin 3.6 g/dL (2.2-4.2); Glucose 280 mg/dL (74-106); Potassium 2.8 mmol/L (3.5-5.1); Protein, Total 6.8 g/dL (6.4-8.2); Sodium Level 130 mmol/L (136-145)
[2018-03-03 14:48] LABS: Alcohol, Blood (Medical)-Serum < 3.0 mg/dL
[2018-03-03 14:59] LABS: Amphetamine Urine VISTA NEGATIVE (<1000 ng/mL); Barbiturate Urine VISTA NEGATIVE (< 200 ng/mL); Benzodiazepine Urine VISTA NEGATIVE (< 200 ng/mL); Cocaine Urine VISTA NEGATIVE (< 300 ng/mL); Ecstacy Urine VISTA NEGATIVE (< 500 ng/mL); Methadone Urine VISTA NEGATIVE (< 300 ng/mL); PCP Urine VISTA NEGATIVE (< 25 ng/mL); THC Urine VISTA NEGATIVE (< 50 ng/mL); Vista UDS pH Range 7
[2018-03-03 15:08] VITALS: PULSE 90; RESP 20; O2SAT 98
--- NOTE | 2018-03-03 15:46 | ED.DCSUM_ITS ---
- ER Visit Summary Date of Service: 03/03/18 Chief Complaint: Suicidal thoughts History of Present Illness: The patient is a 62 F who has a long history of depression. Patient called squad today after developing shortness of breath. She states she was having a panic attack. She has appoint with her psychiatrist and just over an hour. The patient states that she feels like she just does not want to be here. By this she means that she wishes to . She states that she has a lot of stress about finances and with her social situations. No specific plan for suicide. Physical Examination: Afebrile vital signs are stable Gen: Well-nourished well-developed Head: Normocephalic atraumatic Eyes: Perrl EOMI ENT: TMs clear no rhinorrhea moist mucous membranes Neck: Supple no lymphadenopathy no JVD nontender CVS: Regular rate rhythm no murmurs normal S1-S2 Respiratory: No distress clear to auscultation bilaterally chest nontender Abdomen: Soft nontender nondistended normal bowel sounds no masses Back: Nontender Extremity: Nontender no edema Skin: Normal color no rash Neuro: alert orientated ?3 CN II-XII intact normal strength sensation reflexes gait cerebellar Psych: Anxious and depressed. Patient admits to suicidality Test Results: She was medically cleared for crisis evaluation. Emergency Department Course and Treatment: Crisis has been consulted and appropriate disposition will be made after there evaluation. Impression: 1. Suicidal ideation 2. Panic attack This note was generated with [employer] dictation software. It may contain incorrect words, spelling, and punctuation that were not noted in review of the chart prior to signing ED Disposition - Plan for ED Patient: Disposition: Psychiatric Hospital or Unit Chief Complaint: Mental Health Referrals: Matthew Noble Chi, MD [Primary Care Provider] -
--- NOTE | 2018-03-03 15:53 | NURSING ---
CALLED [facility], TALKED TO NOA. SHE WILL PASS ON TO [facility]
[2018-03-03 16:06] VITALS: PULSE 85; RESP 16; O2SAT 95
--- NOTE | 2018-03-03 16:57 | NURSING ---
[facility], [facility], HERE
[2018-03-03] MEDS: Acetaminophen 325 MG Tablet 650 MG PO (19:51)
[2018-03-03 21:36] LABS: AST(SGOT) 22 U/L (15-37); Alanine Aminotransfer ALT/SGPT 28 U/L (13-56); Albumin, Serum 3.3 g/dL (3.2-5.0); Alkaline Phosphatase 116 U/L (45-117); Bilirubin, Direct 0.12 mg/dL (0.00-0.30); Globulin 3.4 g/dL (2.2-4.2); Protein, Total 6.7 g/dL (6.4-8.2)
[2018-03-03 22:15] LABS: Bacteria 0 SEEN /hpf (None Seen); Internal QC Validated? YES +Cl - CLEAR BKGD; Mucous, Urine 0 SEEN /hpf (<or=2+); Pregnancy, Urine Negative Negative; Red Blood Cells-Urine 0 SEEN /hpf (0-5); White Blood Cells 0 SEEN /hpf (0-5)
[2018-03-03 22:19] LABS: Glucose, Dipstick 50 mg/dl (Normal); Ketone-Dipstick Negative (Negative); Leukocyte Esterase-Dipstick Negative /ul (Negative); Nitrite-Dipstick Negative (Negative); Occult Blood-Urine Negative /ul (Negative); Protein-Dipstick Negative (Negative); Urine Bilirubin Dipstick Negative (Negative); Urine Urobilinogen Normal (Normal)
[2018-03-03 22:47] LABS: Color, Urine Yellow (Yellow); Squamous Epithelial Cells - UA 0-5 SEEN /hpf (5-10); Urine Clarity Sl Cldy (Clear)
--- NOTE | 2018-03-03 22:58 | ED.RN ---
PER DR ECHEVERRIA PT IS MEDICALLY CLEARED FOR PSYCHIATRIC PLACEMENT
[2018-03-04] MEDS: Modafinil 200 MG Tablet PO (06:23)
[2018-03-04] MEDS: Ferrous Sulfate 325 MG Tablet PO (06:24)
[2018-03-04] MEDS: Carvedilol 3.125 MG TABLET PO (06:24)
[2018-03-04] MEDS: Isosorbide Mononitrate 30 MG Tablet PO (06:24)
[2018-03-04] MEDS: Lisinopril 2.5 MG Tablet PO (06:25)
[2018-03-04] MEDS: Furosemide 40 MG Tablet PO (06:26)
[2018-03-04] MEDS: Aspirin 81 MG TAB.CHEW PO (06:26)
[2018-03-04] MEDS: Clopidogrel Bisulfate 75 MG Tablet PO (06:26)
[2018-03-04 06:31] VITALS: BP 127/68; PULSE 57; RESP 16; O2SAT 98
[2018-03-04] MEDS: oxyCODONE 5 MG Tablet PO (07:01)
[2018-03-04] MEDS: Glimepiride 4 MG Tablet PO (07:02)
[2018-03-04 07:16] LABS: Bedside Glucose 151 mg/dL (70-110)
[2018-03-04 07:52] VITALS: BP 113/64; PULSE 66; RESP 16; TEMP 36.8; O2SAT 94
[2018-03-04 08:36] VITALS: BP 113/64; PULSE 66; RESP 16; O2SAT 93
== END 2018-03-04 08:37 ==
LOC: ED 14:20
PROVIDERS: Emergency Medicine; Emergency Provider Emergency Medicine; Family Provider Family Medicine Geriatric Medicine; PCP Family Medicine Geriatric Medicine
DX: R45.851 Suicidal ideations (principal); F41.0 Panic disorder [episodic paroxysmal anxiety]; E87.6 Hypokalemia; J44.9 Chronic obstructive pulmonary disease, unspecified; E11.9 Type 2 diabetes mellitus without complications; I10 Essential (primary) hypertension; F32.9 Major depressive disorder, single episode, unspecified; Z72.0 Tobacco use; Z79.02 Long term (current) use of 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/antiplatelets; Z79.82 Long term (current) use of aspirin; Z79.4 Long term (current) use of insulin; Z79.899 Other long term (current) drug therapy
CPT/HCPCS: 71045; 80053; 80076; 80307; 80320; 81001; 81025; 82962; 84484; 85025; 93005; 99285; G0480

== ENCOUNTER → 2018-03-30 10:58 | Outpatient (CLI) | payer MEDICARE, SELFPAY ==
[2016-07-13 11:45] VITALS: BMI 31.4
[2018-03-30 10:58] VITALS: BMI 28.4
[2018-03-30 12:29] LABS: Absolute Lymphocyte Count 1.02 X10^3/ul (0.83-4.51); Absolute Neutrophil Count 9.1 X10^3/uL (2.0-7.7); Basophil# 0.05 X10^3/uL; Basophil% 0.5 % (0-1); Eosinophil# 0.12 X10^3/uL; Eosinophils% 1.1 % (0-5); Hematocrit 42.8 % (37-47); Lymphocyte # 1.02 X10^3/ul (4.0); Lymphocyte % 9.3 % (19-41); Mean Corp Hgb Conc 32.7 g/gl (32-36); Mean Corpuscular Hgb 28.3 pg (27.0-32.0); Mean Corpuscular Volume 86.6 fL (81-99); Monocyte# 0.64 X10^3/uL; Monocyte% 5.8 % (0-10); Neutrophil # 9.11 X10^3/uL (2.7-7.7); Neutrophil % 83.2 % (47-70); Platelet Count 313 K/mm3 (150-450); RBC Distribution Width CV 14.4 % (11.6-14.6); RBC Distribution Width SD 44.8 fl (35.1-43.9); Red Blood Count 4.94 M/mm3 (4.2-5.4)
[2018-03-30 12:32] LABS: POSITIVE COUNT NO; POSITIVE DIFFERENTIAL NO; POSITIVE MORPHOLOGY NO
[2018-03-30 12:52] LABS: Vitamin D,25 Hydroxy 45.7 ng/mL (29.95-100.01)
[2018-03-30 12:58] LABS: ALB/GLOB Ratio 0.8 RATIO (0.9-2.4); AST(SGOT) 26 U/L (15-37); Alanine Aminotransfer ALT/SGPT 24 U/L (13-56); Albumin, Serum 3.1 g/dL (3.2-5.0); Alkaline Phosphatase 115 U/L (45-117); Anion Gap 13 (5-15); BUN 12 mg/dL (7-18); BUN/Creat Ratio 12.3 RATIO (10-20); Calcium,Total 9.4 mg/dL (8.5-10.1); Chloride 97 mmol/L (98-107); Creatinine, Serum 0.98 mg/dL (0.55-1.02); EST Glomerular Filtration Rate 61 mL/min (>60); Est Glom Filt Rate - Afr Amer 74 mL/min (>60); Globulin 3.8 g/dL (2.2-4.2); Glucose 318 mg/dL (74-106); Potassium 3.3 mmol/L (3.5-5.1); Protein, Total 6.9 g/dL (6.4-8.2); Sodium Level 133 mmol/L (136-145); Thyroid Stim Hormone (TSH) 0.33 uIU/mL (0.358-3.74)
== END ==
PROVIDERS: Family Provider Family Medicine Geriatric Medicine; PCP Family Medicine Geriatric Medicine; Visit Provider Family Medicine Geriatric Medicine
DX: E11.9 Type 2 diabetes mellitus without complications (principal); I10 Essential (primary) hypertension; E55.9 Vitamin D deficiency, unspecified
CPT/HCPCS: 36415; 80053; 82306; 84443; 85025

== ENCOUNTER 2018-04-14 14:20 | Emergency (ER) | payer MEDICARE, SELFPAY ==
[2016-07-13 11:45] VITALS: BMI 31.4
[2018-03-30 10:58] VITALS: BMI 28.4
[2018-04-14] VITALS (8 sets, daily range): BP systolic 132–141; BP diastolic 70–89; PULSE 99–133; RESP 16–18; TEMP 36.3; O2SAT 98; BMI 25.0
--- NOTE | 2018-04-14 14:39 | ED.VISSUMM ---
- ER Visit Summary Date of Service: 04/14/18 Chief Complaint: Depressed and suicidal History of Present Illness: The patient is a 62 F history of depression, CAD, [place], cardiac stent, insulin-dependent diabetes. Patient has multiple ER visits and evaluations for depression suicidal ideation. She states that she is been pretty depressed left past 2 weeks and is contemplating overdosing on her medications. She was admitted to a psychiatric facility about 2 months ago. She denies any attempt at this time. Patient was brought in by police department and pink slipped by them. Physical Examination: Older female no acute distress. Vital signs are stable and afebrile. HEENT exam unremarkable. Neck nontender no lymphadenopathy. Lungs clear to auscultation bilaterally. Heart regular rhythm no murmur. Chest wall nontender. Abdomen soft nontender. Patient is moving all 4 extremities. They are neurovascularly intact. She has normal egg separator strength. Dorsi and plantar flexion. 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 Neurologically she is awake and alert. She answers questions and follows commands. No signs of a toxidrome. Test Results: ED mental health screening labs. CBC normal white count of 9. Hemoglobin 15. Her electrolytes came back with sodium of 128 typically she runs between 130 and 135. Potassium is low at 2.4. Normal BUN and creatinine. Normal gap. Patient was given p.o. K-Dur. Also IV KCl and a liter of normal saline. Emergency Department Course and Treatment: Patient is medically cleared for psychiatric evaluation. Treatment Plan: Crisis evaluation and discussion with them prior to disposition. Patient be checked out to the afternoon physician to discuss with crisis prior to any final disposition Disposition: [] Impression: Acute on chronic depression Acute suicidal ideation Acute on chronic hyponatremia and hypokalemia History of insulin-dependent diabetes, CAD, prior [place]. This note was generated with [employer] software. It may contain incorrect words, spelling, and punctuation that were not noted in review of the chart prior to signing ED Disposition - Plan for ED Patient: Chief Complaint: Suicidal Referrals: Matthew Noble Chi, MD [Primary Care Provider] -
--- NOTE | 2018-04-14 14:42 | ED.DCSUM_ITS ---
- ER Visit Summary Date of Service: 04/14/18 Chief Complaint: Depressed and suicidal History of Present Illness: The patient is a 62 F history of depression, CAD, [place], cardiac stent, insulin-dependent diabetes. Patient has multiple ER visits and evaluations for depression suicidal ideation. She states that she is been pretty depressed left past 2 weeks and is contemplating overdosing on her medications. She was admitted to a psychiatric facility about 2 months ago. She denies any attempt at this time. Patient was brought in by police department and pink slipped by them. Physical Examination: Older female no acute distress. Vital signs are stable and afebrile. HEENT exam unremarkable. Neck nontender no lymphadenopathy. Lungs clear to auscultation bilaterally. Heart regular rhythm no murmur. Chest wall nontender. Abdomen soft nontender. Patient is moving all 4 extremities. They are neurovascularly intact. She has normal material cutter strength. Dorsi and plantar flexion. 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 Neurologically she is awake and alert. She answers questions and follows commands. No signs of a toxidrome. Test Results: ED mental health screening labs. CBC normal white count of 9. Hemoglobin 15. Her electrolytes came back with sodium of 128 typically she runs between 130 and 135. Potassium is low at 2.4. Normal BUN and creatinine. Normal gap. Patient was given p.o. K-Dur. Also IV KCl and a liter of normal saline. Emergency Department Course and Treatment: Patient is medically cleared for psychiatric evaluation. Treatment Plan: Crisis evaluation and discussion with them prior to disposition. Patient be checked out to the afternoon physician to discuss with crisis prior to any final disposition Disposition: [] Impression: Acute on chronic depression Acute suicidal ideation Acute on chronic hyponatremia and hypokalemia History of insulin-dependent diabetes, CAD, prior [place]. This note was generated with [employer] software. It may contain incorrect words, spelling, and punctuation that were not noted in review of the chart prior to signing ED Disposition - Plan for ED Patient: Chief Complaint: Suicidal Referrals: Matthew Noble Chi, MD [Primary Care Provider] -
[2018-04-14 15:07] LABS: Absolute Lymphocyte Count 1.67 X10^3/ul (0.83-4.51); Absolute Neutrophil Count 6.6 X10^3/uL (2.0-7.7); Basophil# 0.04 X10^3/uL; Basophil% 0.4 % (0-1); Eosinophil# 0.09 X10^3/uL; Hematocrit 42.5 % (37-47); Hemoglobin 15.2 g/dl (12.0-15.0); Lymphocyte # 1.67 X10^3/ul (4.0); Lymphocyte % 17.7 % (19-41); Mean Corp Hgb Conc 35.8 g/gl (32-36); Mean Corpuscular Hgb 29.2 pg (27.0-32.0); Mean Corpuscular Volume 81.6 fL (81-99); Mean Platelet Vol. 10.1 fl (6.2-12.0); Monocyte% 10.6 % (0-10); Neutrophil # 6.61 X10^3/uL (2.7-7.7); Neutrophil % 70.1 % (47-70); POSITIVE COUNT NO; POSITIVE DIFFERENTIAL NO; POSITIVE MORPHOLOGY NO; Platelet Count 252 K/mm3 (150-450); RBC Distribution Width CV 13.2 % (11.6-14.6); RBC Distribution Width SD 39.7 fl (35.1-43.9); Red Blood Count 5.21 M/mm3 (4.2-5.4); White Blood Count 9.4 K/mm3 (4.4-11.0)
[2018-04-14 15:15] LABS: Anion Gap 13 (5-15); BUN 7 mg/dL (7-18); BUN/Creat Ratio 8.1 RATIO (10-20); Calcium,Total 9.4 mg/dL (8.5-10.1); Chloride 92 mmol/L (98-107); Creatinine, Serum 0.87 mg/dL (0.55-1.02); EST Glomerular Filtration Rate 70 mL/min (>60); Est Glom Filt Rate - Afr Amer 85 mL/min (>60); Estimated Creatinine Clearance 59.56 ml/min; Glucose 203 mg/dL (74-106); Potassium 2.4 mmol/L (3.5-5.1); Sodium Level 128 mmol/L (136-145)
[2018-04-14 16:58] LABS: Amphetamine Urine VISTA NEGATIVE (<1000 ng/mL); Barbiturate Urine VISTA NEGATIVE (< 200 ng/mL); Benzodiazepine Urine VISTA NEGATIVE (< 200 ng/mL); Cocaine Urine VISTA NEGATIVE (< 300 ng/mL); Ecstacy Urine VISTA NEGATIVE (< 500 ng/mL); Methadone Urine VISTA NEGATIVE (< 300 ng/mL); PCP Urine VISTA NEGATIVE (< 25 ng/mL); THC Urine VISTA NEGATIVE (< 50 ng/mL); Vista UDS pH Range 7
[2018-04-14] MEDS: 0.9% Normal Saline 1,000 ML 500 ML IV ×2 (17:34→19:20)
--- NOTE | 2018-04-14 22:00 | ED.RN ---
SPOKE WITH [facility]. THEY NEED A POTASSIUM, MAGNESIUM,SODIUM, AND PHOSPHORUS LEVEL BEFORE ACCEPTANCE.
[2018-04-14 22:52] LABS: Anion Gap 10 (5-15); BUN 10 mg/dL (7-18); BUN/Creat Ratio 9.9 RATIO (10-20); Calcium,Total 9.2 mg/dL (8.5-10.1); Chloride 99 mmol/L (98-107); Creatinine, Serum 1.01 mg/dL (0.55-1.02); EST Glomerular Filtration Rate 59 mL/min (>60); Est Glom Filt Rate - Afr Amer 71 mL/min (>60); Glucose 241 mg/dL (74-106); Magnesium 2.7 mg/dL (1.6-2.6); Potassium 3.3 mmol/L (3.5-5.1); Sodium Level 134 mmol/L (136-145)
[2018-04-14 23:09] LABS: Phosphorus 2.2 mg/dL (2.5-4.9)
[2018-04-15] VITALS (10 sets, daily range): BP systolic 105–112; BP diastolic 50–66; PULSE 71–83; RESP 14–18; O2SAT 96–100
--- NOTE | 2018-04-15 00:17 | ED.RN ---
PATIENTS IV NO LONGER WORKING. IV REMOVED. NOTIFIED DR. S[facility]. PARKER WITH NO IV.
[2018-04-15 04:14] LABS: Potassium 3.5 mmol/L (3.5-5.1)
== END 2018-04-15 07:29 ==
PROVIDERS: Emergency Medicine; Emergency Provider Emergency Medicine; Family Provider Family Medicine Geriatric Medicine; PCP Family Medicine Geriatric Medicine
DX: F32.9 Major depressive disorder, single episode, unspecified (principal); R45.851 Suicidal ideations; E11.9 Type 2 diabetes mellitus without complications; E87.6 Hypokalemia; E87.1 Hypo-osmolality and hyponatremia; I25.10 Atherosclerotic heart disease of native coronary artery without angina pectoris; I25.2 Old myocardial infarction; Z79.4 Long term (current) use of insulin; Z79.02 Long term (current) use of 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/antiplatelets; Z79.82 Long term (current) use of aspirin; Z79.899 Other long term (current) drug therapy; Z95.5 Presence of coronary angioplasty implant and graft; Z89.412 Acquired absence of left great toe
CPT/HCPCS: 36415; 80048; 80307; 80320; 83735; 84100; 84132; 85025; 96361; 96365; 96366; 96367; 99285; J7030; A4216; G0480

== ENCOUNTER 2018-05-29 10:08 | Inpatient (IN) | payer MEDICARE, SELFPAY ==
[2016-07-13 11:45] VITALS: BMI 31.4
[2018-04-14 14:21] VITALS: BMI 25.0
[2018-05-29] VITALS (39 sets, daily range): BP systolic 68–132; BP diastolic 41–89; PULSE 55–68; RESP 12–23; TEMP 34.7–37.3; O2SAT 98–100; BMI 23.4; BMI 23.2; BMI 23.5
--- NOTE | 2018-05-29 10:42 | EKG12_ITS ---
Test Reason : SUICIDAL Blood Pressure : / mmHG Vent. Rate : 056 BPM Atrial Rate : 056 BPM P-R Int : 162 ms QRS Dur : 090 ms QT Int : 492 ms P-R-T Axes : 045 -11 054 degrees QTc Int : 474 ms Sinus bradycardia Low voltage QRS Abnormal ECG Confirmed by ALLAN WITT, DORYS ([id number]), manager editorial ANA MEDRANO ([id number]) on 06/02/2018 1:31:00 PM Referred By: CHARLIE Confirmed By:DORYS LEMUS MD
--- NOTE | 2018-05-29 10:47 | ED.VISSUMM ---
- ER Visit Summary Date of Service: 05/29/18 Chief Complaint: Vomiting, diarrhea History of Present Illness: The patient is a 62 F presenting with suicidal ideation. When EMS arrived she was sitting covered in stool and vomit. She states she has had vomiting and diarrhea for the past couple of weeks. She was covered in stool and emesis. She had pill fragments in her hair from her morning medications. She states she has had thoughts of overdosing but has not overdosed. She denies chest pain or shortness of breath. Denies abdominal pain. Physical Examination: Blood pressure 69/41. Temperature 94.5. Alert no acute distress. HEENT exam dry mucous membranes Neck is supple. Lungs are clear and equal bilaterally. Heart is regular rate and rhythm. Abdomen is soft nontender nondistended. : erythema and diffuse excoriated skin Extremities are unremarkable. Skin is warm and dry. No focal neurologic deficit. Alert and oriented x2 Remainder of exam is unremarkable. Emergency Department Course and Treatment: She was given IV fluids. EKG is sinus bradycardia rate of 56. Chest x-ray shows no acute process. CBC shows white count 11.3. Chemistries show sodium 130, potassium 3.0, glucose 173, BUN 35, creatinine 3.48. This is elevated from previous of 1.01. INR 1.0. Lactic acid is normal. Troponin is negative. Influenza negative. Blood cultures were sent. Tylenol and salicylate levels were negative. Urine drugs of abuse and alcohol are negative. Stool studies were sent. After 2.5 L, BP 86/40, MAP 69. She is now alert and oriented x3. She is feeling improved. Patient refused central line placement. She states she has had central lines in the past and refuses placement today. Her temperature is up to 97.1. She was hypothermic but otherwise did not meet Sirs criteria. Discussed with the hospitalist for admission. Disposition: Admission Impression: ELBA, vomiting and diarrhea, suicidal ideation This note was generated with [employer] dictation software. It may contain incorrect words, spelling, and punctuation that were not noted in review of the chart prior to signing ED Disposition - Plan for ED Patient: Referrals: Matthew Noble Chi, MD [Primary Care Provider] -
[2018-05-29] MEDS: 0.9% Normal Saline 1,000 ML 999 ML IV ×4 (10:54→20:27)
--- NOTE | 2018-05-29 11:00 | RAD_ITS ---
STUDY: X-RAY CHEST REASON FOR EXAM: Female, 62 years old. Cough TECHNIQUE: AP COMPARISON: 03/03/2018 FINDINGS: EKG leads project over the chest. The lungs are clear and expanded. There is no demonstrated pleural abnormality. Normal size heart. Normal mediastinum and sara. Normal visualized pulmonary arteries. There is atherosclerotic tortuosity of the aortic arch and descending thoracic aorta. Fusion hardware of the lower cervical spine. There is no demonstrated abnormality of the visualized soft tissue structures of the upper abdomen. RAD/Chest 1 View (Portable) IMPRESSION: 1. No airspace consolidation or pleural effusion Electronically Signed: Conrad Schwartz MD at 11:16 EST , Service support ,
[2018-05-29 11:14] LABS: Absolute Lymphocyte Count 0.66 X10^3/ul (0.83-4.51); Absolute Neutrophil Count 9.6 X10^3/uL (2.0-7.7); Basophil# 0.01 X10^3/uL; Basophil% 0.1 % (0-1); Eosinophil# 0.04 X10^3/uL; Eosinophils% 0.4 % (0-5); Hematocrit 39.4 % (37-47); Hemoglobin 13.7 g/dl (12.0-15.0); Lymphocyte # 0.66 X10^3/ul (4.0); Lymphocyte % 5.8 % (19-41); Mean Corp Hgb Conc 34.8 g/gl (32-36); Mean Corpuscular Hgb 29.7 pg (27.0-32.0); Mean Corpuscular Volume 85.5 fL (81-99); Mean Platelet Vol. 9.4 fl (6.2-12.0); Monocyte# 0.97 X10^3/uL; Monocyte% 8.6 % (0-10); Neutrophil # 9.62 X10^3/uL (2.7-7.7); Neutrophil % 84.8 % (47-70); Platelet Count 221 K/mm3 (150-450); RBC Distribution Width CV 15.9 % (11.6-14.6); RBC Distribution Width SD 49.2 fl (35.1-43.9); Red Blood Count 4.61 M/mm3 (4.2-5.4); White Blood Count 11.3 K/mm3 (4.4-11.0)
[2018-05-29 11:18] LABS: POSITIVE COUNT NO; POSITIVE DIFFERENTIAL NO; POSITIVE MORPHOLOGY NO
[2018-05-29 11:23] LABS: Prothrombin Time (Protime)PT. 13.3 SECONDS (11.7-14.9)
[2018-05-29 11:24] LABS: Partial Thromboplast Time 23.7 Seconds (24.1-36.2)
[2018-05-29 11:34] LABS: ALB/GLOB Ratio 0.7 RATIO (0.9-2.4); AST(SGOT) 47 U/L (15-37); Alanine Aminotransfer ALT/SGPT 26 U/L (13-56); Albumin, Serum 2.6 g/dL (3.2-5.0); Alkaline Phosphatase 105 U/L (45-117); Anion Gap 14 (5-15); BUN 35 mg/dL (7-18); BUN/Creat Ratio 10.1 RATIO (10-20); Calcium,Total 9.3 mg/dL (8.5-10.1); Chloride 94 mmol/L (98-107); Creatinine, Serum 3.48 mg/dL (0.55-1.02); EST Glomerular Filtration Rate 14 mL/min (>60); Est Glom Filt Rate - Afr Amer 17 mL/min (>60); Estimated Creatinine Clearance 14.89 ml/min; Globulin 3.7 g/dL (2.2-4.2); Glucose 173 mg/dL (74-106); Protein, Total 6.3 g/dL (6.4-8.2); Sodium Level 130 mmol/L (136-145)
[2018-05-29 11:38] LABS: Lactic Acid 1.4 mmol/L (0.4-2.0)
--- NOTE | 2018-05-29 11:47 | ED.RN ---
PER DR CHARLIE REA DC'Ayb
[2018-05-29 11:52] LABS: Acetaminophen (Tylenol) Level < 2.0 ug/mL (10.0-30.0); Salicylate 14.6 mg/dL (2.8-20.0)
[2018-05-29 12:05] LABS: Amphetamine Urine VISTA NEGATIVE (<1000 ng/mL); Barbiturate Urine VISTA NEGATIVE (< 200 ng/mL); Benzodiazepine Urine VISTA NEGATIVE (< 200 ng/mL); Cocaine Urine VISTA NEGATIVE (< 300 ng/mL); Ecstacy Urine VISTA NEGATIVE (< 500 ng/mL); Methadone Urine VISTA NEGATIVE (< 300 ng/mL); PCP Urine VISTA NEGATIVE (< 25 ng/mL); THC Urine VISTA NEGATIVE (< 50 ng/mL); Vista UDS pH Range 5
--- NOTE | 2018-05-29 14:32 | HP.PCM_ITS ---
Problem List (1) Hypovolemic shock Status: Acute (2) Hypokalemia Status: Acute (3) Hypothermia Status: Acute (4) Suicidal ideation Status: Acute (5) Takotsubo syndrome Status: Chronic (6) Non-rheumatic tricuspid valve insufficiency Status: Chronic (7) Dilated cardiomyopathy Status: Chronic (8) Atherosclerotic heart disease of [place] coronary artery without angina pectoris Status: Chronic Qualifiers: [place] vs. transplanted heart: [place] heart Qualified Code(s): I25.10 - Atherosclerotic heart disease of [place] coronary artery without angina pectoris (9) Typical atrial flutter Status: Chronic (10) Status post placement of implantable loop recorder Status: Chronic Comment: Implant 07/09 (11) Paroxysmal atrial fibrillation Status: Chronic (12) Left ventricular hypertrophy Status: Chronic (13) Nicotine abuse Status: Chronic (14) Chronic systolic (congestive) heart failure Status: Chronic (15) History of coronary artery stent placement Status: Chronic Comment: LHC w/PCI, aspiration thrombectomy and FEROZ to mid LAD 04/08/16 (16) Ischemic cardiomyopathy Status: Chronic (17) Diabetes mellitus type 2 in nonobese Status: Chronic (18) Apical mural thrombus with acute AL Status: Chronic (19) COPD (chronic obstructive pulmonary disease) Status: Chronic Qualifiers: (20) HTN (hypertension) Status: Chronic Qualifiers: Hypertension type: essential hypertension Qualified Code(s): I10 - Essential (primary) hypertension (21) Hyperlipemia Status: Chronic Qualifiers: Hyperlipidemia type: pure hypercholesterolemia Qualified Code(s): E78.00 - Pure hypercholesterolemia, unspecified; E78.0 - Pure hypercholesterolemia History of Present Illness Date of Admission: 05/29/18 Chief Complaint: Suicidal ideation The patient is a 62 year old F 62-year-old lady with multiple comorbidities including CAD with previous AL, hypertension, multiple sclerosis, diabetes mellitus type 2, who called the squad complaining of suicidal ideation. The squad upon arrival found patient covered in feces and urine. Patient apparently did tell the squad about having had diarrhea for 3 continuous days. She was subsequently transferred to the emergency department where patient was found to be hypothermic with temperature of 94. Patient was hypotensive with blood pressure in the 60s. She was also found to be hypokalemic with acute kidney injury IV fluid resuscitation patient admitted to the intensive care unit for subsequent evaluation. Past Medical History Past Medical History (Chronic Problems): Chronic Problems (Last Reviewed 05/29/18 @ 14:51 by Lui Paul MD) Takotsubo syndrome (Chronic) Non-rheumatic tricuspid valve insufficiency (Chronic) Dilated cardiomyopathy (Chronic) Atherosclerotic heart disease of [place] coronary artery without angina pectoris (Chronic) Typical atrial flutter (Chronic) Status post placement of implantable loop recorder (Chronic) Implant 07/09 Paroxysmal atrial fibrillation (Chronic) Left ventricular hypertrophy (Chronic) Nicotine abuse (Chronic) Chronic systolic (congestive) heart failure (Chronic) History of coronary artery stent placement (Chronic) [facility] w/PCI, aspiration thrombectomy and FEROZ to mid LAD 04/08/16 Ischemic cardiomyopathy (Chronic) Diabetes mellitus type 2 in nonobese (Chronic) Apical mural thrombus with acute AL (Chronic) COPD (chronic obstructive pulmonary disease) (Chronic) HTN (hypertension) (Chronic) Hyperlipemia (Chronic) Medical History: Medical History (Last Reviewed 05/29/18 @ 14:51 by Lui Paul MD) Ischemic cardiomyopathy (Chronic) I25.5 Apical mural thrombus with acute AL (Chronic) I21.29 COPD (chronic obstructive pulmonary disease) (Chronic) J44.9 Anxiety F41.9 Depression F32.9 Frequent falls R29.6 IBS (irritable bowel syndrome) K58.9 RLS (restless legs syndrome) G25.81 Cervical spinal stenosis M48.02 Multiple sclerosis G35 BRYAN (obstructive sleep apnea) G47.33 Radiculitis, thoracic M54.14 Lower limb amputation, great toe Z89.419 Acute renal failure (Inactive) Dehydration (Inactive) E86.0 Hypomagnesemia (Inactive) E83.42 Hyponatremia (Inactive) E87.1 Iron deficiency (Inactive) E61.1 Irritable bowel syndrome with diarrhea (Inactive) K58.0 Menopausal disorder (Inactive) N95.9 Metabolic encephalopathy (Inactive) G93.41 due to acute renal failure and overmedication Vitamin B12 deficiency (Inactive) E53.8 Allergies indomethacin [From Indocin] Allergy (Verified 05/29/18 11:47) Hives indomethacin sodium [From Indocin] Allergy (Verified 05/29/18 11:47) Hives iodine Allergy (Verified 05/29/18 11:47) Hives propoxyphene napsylate [From Darvocet-N] Allergy (Verified 05/29/18 11:47) Out of control aripiprazole [From Abilify] Adverse Reaction (Verified 05/29/18 11:47) Other aspirin Adverse Reaction (Verified 05/29/18 11:47) Upset Stomach when taken in high doses clindamycin Adverse Reaction (Verified 05/29/18 11:47) Nausea metformin Adverse Reaction (Verified 05/29/18 11:47) Other IT CAUSES MY KIDNEYS TO DO WEIRD THINGS sumatriptan [From Imitrex] Adverse Reaction (Verified 05/29/18 11:47) Vomiting Home Medications: Ambulatory Orders Medication Instructions Recorded Aspirin E.C. [Ecotrin] 81 mg PO DAILY@0800 10/21/16 Glimepiride [Amaryl] 4 mg PO BID 10/21/16 Clopidogrel Bisulfate [Plavix] 75 mg PO DAILY 05/18/17 lisinopril 2.5 mg tablet 2.5 mg PO DAILY #28 tab 05/26/17 Teriflunomide [Aubagio] 14 mg PO DAILY 06/02/17 ropinirole 0.5 mg tablet 2 mg PO QHS tab 06/22/17 Isosorbide Mononitrate [Isosorbide 30 mg PO DAILY 10/06/17 Mononitrate ER] Potassium Chloride [K-Dur] 20 meq PO DAILY 10/06/17 Furosemide [Lasix] 40 mg PO DAILY 10/19/17 Methadone HCl 5 mg PO QHS 10/19/17 Promethazine HCl 25 mg PO 4X/DAY PRN 10/19/17 Sucralfate [Carafate] 1 gm PO 4X/DAY 10/19/17 Albuterol Inhaler [Ventolin Hfa 2 puff INHALATION Q6H PRN PRN 10/23/17 (SP)] Carvedilol [Coreg] 3.125 mg PO BID 10/23/17 Cholecalciferol (Vitamin D3) 2,000 unit PO DAILY 10/23/17 [Vitamin D3] Hydroxyzine HCl 50 mg PO TID PRN PRN 10/26/17 Modafinil [Provigil] 200 mg PO DAILY 10/26/17 Oxycodone HCl/Acetaminophen 1 - 2 tab PO Q4H PRN PRN 10/26/17 [Oxycodone-Acetaminophen 10-325] Pantoprazole Sodium [Protonix] 40 mg PO QHS 11/23/17 Donepezil HCl [Aricept] 20 mg PO QHS 12/18/17 ferrous sulfate 325 mg (65 mg 325 mg PO DAILY tab 12/18/17 iron) tablet insulin glargine (U-100) 100 18 unit SC DAILY ml 12/18/17 unit/mL (3 mL) subcutaneous pen Rosuvastatin Calcium [Crestor] 40 mg PO QHS 01/06/18 Risperidone 1 mg PO QHS 02/23/18 Surgical History: Surgical History (Last Reviewed 05/29/18 @ 14:51 by Lui Paul MD) History of amputation of left great toe Z89.412 staph infection History of back surgery Z98.890 History of carpal tunnel release of both wrists Z98.890 History of cervical discectomy Z98.890 History of left knee surgery Z98.890 torn meniscus repair x 2 History of tonsillectomy and adenoidectomy Z98.890 History of tubal ligation Z98.51 Surgical History: adenoidectomy, tonsillectomy, - - L foot great toe ampuation, Back surgery x 3, L carpal tunnel surgery x 2, R carpal tunnel surgery x 1, R thumb reconstructive surgery. cervical spinal surgery february [address] [facility]. Psychiatric History: Anxiety, Depression, - - Mild cognitive impairment [employer] History: - - Menopausal syndrome. Smoking Status: Current every day smoker - *Family History Maternal Family History: Family History (Last Reviewed 05/29/18 @ 14:51 by Lui Paul MD) Father Cancer Mother Cancer History Items: Cancer - mother pancreatic ca Paternal Family History: Family History (Last Reviewed 05/29/18 @ 14:51 by Lui Palu MD) Father Cancer Mother Cancer History Items: Cancer - father lung ca., - - Lung cancer Review of Systems Constitutional: Reports: Chills, Weakness, Fatigue HEENT: Denies: Head Aches, Sinus Congestion, Sinus Drainage Cardiovascular: Denies: Chest Pain, Orthopnea, Palpitations, Paroxysmal Noc. Dyspnea Respiratory: Denies: Cough, Shortness of breath at rest, Shortness of breath upon exertion, Sputum production Gastrointestinal: Reports: Diarrhea Genitourinary: Denies: Dysuria, Frequency, Hematuria, Urgency Musculoskeletal: Denies: Joint Pain, Joint Tenderness Skin: Reports: Dryness Psychiatric: Reports: Suicidal Ideations Hematologic/ Lymphatic: Denies: Easy Bruising, Easy Bleeding VTE Information - Inpt Only VTE Present on Admission: No VTE Mechan Device Prophylaxis: Knee High BRIT Hose VTE Pharm Prophylaxis ordered?: Yes Patient Problems: Active and Suspected Problems (Last Reviewed 05/29/18 @ 14:51 by Lui Paul MD) Hypothermia (Acute) Hypokalemia (Acute) Hypovolemic shock (Acute) Objective: GENERAL: Frail looking HEENT: Atraumatic; dry oral mucosa EYES; Anicteric, Normal Conjunctiva NECK; supple, normal thyroid, RESPIRATORY: Diminished to auscultation bilaterally, CARDIOVASCULAR: Regular S1 S2, no audible murmurs GI: soft, non-tender, normoactive bowel sounds, : Excoriations in the perineum EXTREMITIES: Contractures involving both lower extremities MUSCULOSKELETAL: muscle waisting NEURO: Awake; no lateralizing signs. SKIN: No Rash PSYCH; flat affect - Physical Exam Vital Signs Temp Pulse Resp BP Pulse Ox 97.1 F L 59 L 16 84/59 L 98 05/29/18 14:00 05/29/18 14:00 05/29/18 14:00 05/29/18 14:00 05/29/18 14:00 Oxygen Delivery Method Room Air Weight: 63.957 kg Body Mass Index (BMI) 23.4 Finger Stick Blood Glucose 151 Microbiology Past 72 Hours 05/29/18 11:25 Influenza Types A,B Direct FA (ANTONIA) - Final Mucosa - Nasopharyngeal Laboratory Tests Past 24 Hrs 05/29/18 05/29/18 05/29/18 10:45 10:45 10:45 WBC 11.3 H RBC 4.61 Hgb 13.7 Hct 39.4 MCV 85.5 MCH 29.7 MCHC 34.8 RDW 15.9 H RDW Differential 49.2 H Plt Count 221 MPV 9.4 Immature Gran % (Auto) 0.300 Neut % (Auto) 84.8 H Lymph % (Auto) 5.8 L Moody % (Auto) 8.6 Eos % (Auto) 0.4 Baso % (Auto) 0.1 Absolute Neuts (auto) 9.6 H Absolute Lymphs (auto) 0.66 L Total Counted Not Reportable PT 13.3 INR 1.0 APTT 23.7 L Sodium Potassium Chloride Carbon Dioxide Anion Gap BUN Creatinine Estim Creat Clear Calc Est GFR (MDRD) Af Amer Est GFR (MDRD) Non-Af BUN/Creatinine Ratio Glucose Lactic Acid Calcium Total Bilirubin AST ALT Alkaline Phosphatase Troponin I Total Protein Albumin Globulin Albumin/Globulin Ratio Salicylates Urine Opiates Screen Urine Methadone Screen Acetaminophen Ur Barbiturates Screen Ur Phencyclidine Scrn Ur Amphetamines Screen U Methamphetamin-MDMA U Benzodiazepines Scrn Urine Cocaine Screen U Cannabinoids Screen Ur Drug Screen Comment Ethyl Alcohol 8.0 05/29/18 05/29/18 05/29/18 10:45 10:45 10:45 WBC RBC Hgb Hct MCV MCH MCHC RDW RDW Differential Plt Count MPV Immature Gran % (Auto) Neut % (Auto) Lymph % (Auto) Moody % (Auto) Eos % (Auto) Baso % (Auto) Absolute Neuts (auto) Absolute Lymphs (auto) Total Counted PT INR APTT Sodium 130 L Potassium 3.0 L Chloride 94 L Carbon Dioxide 22.0 Anion Gap 14 BUN 35 H Creatinine 3.48 H Estim Creat Clear Calc 14.89 Est GFR (MDRD) Af Amer 17 L Est GFR (MDRD) Non-Af 14 L BUN/Creatinine Ratio 10.1 Glucose 173 H Lactic Acid 1.4 Calcium 9.3 Total Bilirubin 0.50 AST 47 H ALT 26 Alkaline Phosphatase 105 Troponin I < 0.015 Total Protein 6.3 L Albumin 2.6 L Globulin 3.7 Albumin/Globulin Ratio 0.7 L Salicylates 14.6 Urine Opiates Screen Urine Methadone Screen Acetaminophen < 2.0 L Ur Barbiturates Screen Ur Phencyclidine Scrn Ur Amphetamines Screen U Methamphetamin-MDMA U Benzodiazepines Scrn Urine Cocaine Screen U Cannabinoids Screen Ur Drug Screen Comment Ethyl Alcohol 05/29/18 11:26 WBC RBC Hgb Hct MCV MCH MCHC RDW RDW Differential Plt Count MPV Immature Gran % (Auto) Neut % (Auto) Lymph % (Auto) Moody % (Auto) Eos % (Auto) Baso % (Auto) Absolute Neuts (auto) Absolute Lymphs (auto) Total Counted PT INR APTT Sodium Potassium Chloride Carbon Dioxide Anion Gap BUN Creatinine Estim Creat Clear Calc Est GFR (MDRD) Af Amer Est GFR (MDRD) Non-Af BUN/Creatinine Ratio Glucose Lactic Acid Calcium Total Bilirubin AST ALT Alkaline Phosphatase Troponin I Total Protein Albumin Globulin Albumin/Globulin Ratio Salicylates Urine Opiates Screen NEGATIVE Urine Methadone Screen NEGATIVE Acetaminophen Ur Barbiturates Screen NEGATIVE Ur Phencyclidine Scrn NEGATIVE Ur Amphetamines Screen NEGATIVE U Methamphetamin-MDMA NEGATIVE U Benzodiazepines Scrn NEGATIVE Urine Cocaine Screen NEGATIVE U Cannabinoids Screen NEGATIVE Ur Drug Screen Comment Ethyl Alcohol Assessment/Plan All Active Problems (Last Reviewed 05/29/18 @ 14:51 by Lui Paul MD) Hypothermia (Acute) Hypokalemia (Acute) Hypovolemic shock (Acute) Chest pain (Acute) Suicidal ideation (Acute) Acute ST segment elevation AL (Resolved) Shortness of breath (Resolved) Syncope (Resolved) Chest pain (Resolved) STEMI (ST elevation myocardial infarction) (Resolved) Takotsubo cardiomyopathy (Resolved) Tak[place]ubo cardiomyopathy (Resolved) Patient is a 62-year-old lady with multiple comorbidities who called the squad complaining of suicidal ideation patient was found to be unkempt. Transferred to the emergency department where patient was found to be hypotensive and hypothermic with electrolyte abnormalities including acute kidney injury and hypokalemia 1. Hypovolemic shock secondary to severe dehydration from patient's diarrhea. Patient has been admitted to the intensive care unit currently being resuscitated with IV fluids with plans to initiate vasopressors if patient does not respond to the initial IV fluid resuscitation 2. Hypothermia patient did receive warm saline in the ED with core temperature increasing from 94 on admission to 97 at the time of admission 3. Acute kidney injury secondary to severe dehydration from diarrhea being resuscitated with IV fluid 4. Hypokalemia corrected per protocol 5. Hyponatremia secondary to hypovolemic hyponatremia patient is currently being resuscitated with IV fluids with monitoring of electrolyte 6. Severe depression with suicidal ideation. Plan is to obtain consultation from the crisis center once patient condition has stabilized 7. History of coronary artery disease with history of LHC w/PCI, aspiration thrombectomy and FEROZ to mid LAD 04/08/16 8. Multiple sclerosis without acute exacerbation. Continue with home meds 9. Hypertension: Patient blood pressure medications held in view of patient presented with low blood pressure 10. History of A. fib/flutter was previously a systemic anticoagulation currently on none 11. Diabetes mellitus type II ; Home regimen continued also added long acting insulin as well as Accu-Cheks before meals and at bedtime and covered with sliding scale insulin 12. Dyslipidemia-patient is on statin therapy, continued at home dose 13. History of Takotsubo syndrome 14. COPD currently not in exacerbation 15. DVT prophylaxis?Lovenox Code Visit Inpatient E&M: 64766 Init Hosp L3
--- NOTE | 2018-05-29 15:33 | RAD_ITS ---
STUDY: X-RAY CHEST REASON FOR EXAM: Female, 62 years old. Central line placement TECHNIQUE: Single AP portable view of the chest. COMPARISON: Prior study of earlier this date 10:53 AM FINDINGS: A left-sided central venous line is seen with the tip overlying the distal SVC. The lungs are clear and expanded. There is no demonstrated pleural abnormality. Normal size heart. Normal mediastinum and sara. Normal visualized pulmonary arteries. There are calcified plaques of the aortic arch. Normal visualized thoracic spine. Normal visualized ribs, clavicles, and shoulders. There are posterior spinal fusion changes with rods and interpeduncular screws in the visualized lower cervical region. There is no demonstrated abnormality of the visualized soft tissue structures of the upper abdomen. RAD/CXR for Line Placement IMPRESSION: Left-sided central venous line present with tip superimposed on the distal SVC. There is no pneumothorax. No acute cardiopulmonary disease process is seen. Electronically Signed: Jesús Copeland MD at 16:35 EST , Service support ,
[2018-05-29 16:26] LABS: CPK Total, Creatine Kinase 649 U/L (26-192)
[2018-05-29 16:31] LABS: Magnesium 2.3 mg/dL (1.6-2.6); Thyroid Stim Hormone (TSH) 0.49 uIU/mL (0.358-3.74)
[2018-05-29 17:27] LABS: Mucous, Urine 0 SEEN /hpf (<or=2+); Red Blood Cells-Urine 0 SEEN /hpf (0-5)
[2018-05-29 17:33] LABS: Color, Urine Yellow (Yellow); Glucose, Dipstick Normal (Normal); Ketone-Dipstick 5 mg/dl (Negative); Leukocyte Esterase-Dipstick 500 /ul (Negative); Nitrite-Dipstick Negative (Negative); Occult Blood-Urine 50 /ul (Negative); Protein-Dipstick 30 mg/dl (Negative); Specific Gravity, Urine 1.015 (1.002-1.030); Urine Bilirubin Dipstick 3 mg/dL (Negative); Urine Clarity Cloudy (Clear); Urine Urobilinogen 4 mg/dl (Normal)
[2018-05-29 17:46] LABS: Bacteria 3+ /hpf (None Seen); Squamous Epithelial Cells - UA 5-10 SEEN /hpf (5-10); White Blood Cells 5-10 SEEN /hpf (0-5)
[2018-05-29] MEDS: Insulin Lispro 100 UNIT/ML INSULN.PEN SQ ×2 (18:03→21:26)
[2018-05-29] MEDS: Sucralfate 1 GM Tablet PO (18:06)
--- NOTE | 2018-05-29 18:16 | NURSING ---
Per Dr. Costello in ED pt did not require sitter while in ED . Did clarify with Dr. Paul who also stated pt did not require suicide sitter at this time in ICU .
--- NOTE | 2018-05-29 18:59 | ED.RN ---
JEAN MARIE BARRON ATTEMPTED TO CALL RAVEN STODDARD AT [phone] NO ANSWER.
--- NOTE | 2018-05-29 20:30 | NURSING ---
Called and left a message for wagner Willis's roommate to call back.
--- NOTE | 2018-05-29 21:16 | NURSING ---
Talked with roommate Lazaro and notified him that pt. is here in the hospital. Asked him to bring in Teriflunomide in original pill bottle tomorrow as we do not carry this medication. Lazaro said that he would. Made aware that visiting hours are 9a-9p.
[2018-05-29 21:31] LABS: Bedside Glucose 179 mg/dL (70-110)
[2018-05-29] MEDS: Menthol/Lanolin/Calamine/Znox 113 GM Tube 1 APPLIC TOPICAL (22:49)
[2018-05-30] VITALS (48 sets, daily range): BP systolic 90–136; BP diastolic 43–69; PULSE 53–77; RESP 12–23; TEMP 37.1–38.5; O2SAT 96–100
[2018-05-30 05:30] LABS: Hematocrit 33.6 % (37-47); Hemoglobin 11.5 g/dl (12.0-15.0); Mean Corp Hgb Conc 34.2 g/gl (32-36); Mean Corpuscular Hgb 29.5 pg (27.0-32.0); Mean Corpuscular Volume 86.2 fL (81-99); Mean Platelet Vol. 8.7 fl (6.2-12.0); Platelet Count 190 K/mm3 (150-450); RBC Distribution Width CV 15.8 % (11.6-14.6); RBC Distribution Width SD 49.9 fl (35.1-43.9)
[2018-05-30 05:32] LABS: Scan Indicated on CBC? Y/N NO
[2018-05-30] MEDS: Menthol/Lanolin/Calamine/Znox 113 GM Tube 1 APPLIC TOPICAL ×3 (05:43→20:53)
[2018-05-30] MEDS: CHLORHEXIDINE GLUC 2% CLOTH 1 EACH TOWELETTE TOPICAL (05:56)
[2018-05-30] MEDS: Sucralfate 1 GM Tablet PO ×4 (06:09→20:38)
[2018-05-30 06:10] LABS: Anion Gap 10 (5-15); BUN 24 mg/dL (7-18); BUN/Creat Ratio 16.2 RATIO (10-20); Calcium,Total 7.9 mg/dL (8.5-10.1); Chloride 112 mmol/L (98-107); Creatinine, Serum 1.48 mg/dL (0.55-1.02); EST Glomerular Filtration Rate 38 mL/min (>60); Est Glom Filt Rate - Afr Amer 46 mL/min (>60); Estimated Creatinine Clearance 35.01 ml/min; Glucose 99 mg/dL (74-106); Potassium 3.1 mmol/L (3.5-5.1); Sodium Level 138 mmol/L (136-145)
--- NOTE | 2018-05-30 07:02 | PCM.CON.CC ---
Reason for Consult Date of Consultation: 05/30/18 Reason for Consultation: Septic shock History of Present Illness: The patient is a 62-year-old female, with a history as outlined below, who presented to the emergency department on May 29 after reportedly contacting EMS with suicidal ideations. The patient also reportedly had a history of 2 weeks of diarrhea and was documented to be found by EMS covered in stool and vomit. The patient is rather indifferent this morning and provides very little detail of the weeks leading up to her hospitalization. She currently denies any abdominal pain. The patient did have one loose bowel movement noted on arrival to the ICU, without further episodes noted overnight. It does appear that the patient was pink slipped by the [employer] department. On presentation to the emergency department, the patient was noted to be hypothermic with a temperature of 34.7 ?C. She was hypotensive with a blood pressure of 69/41 mmHg. She was, nevertheless, maintaining appropriate oxygen saturations on room air. There was one documented respiratory rate of 23 breaths/min. Laboratory evaluation revealed elevated white blood cell count 11,000. Chemistry profile revealed a sodium of 130, potassium of 3.0, chloride of 94 and acute kidney injury with creatinine of 3.48. CK was elevated to 649. Lactate was within normal limits at 1.4. Troponin x3 were negative. Urinalysis completed on May 29 was clearly suggestive of infection. The patient received supplemental IV fluid hydration. According to documentation from the emergency department provider, because the patient did not technically meet SIRS criteria, antibiotics were never initiated. The patient was subsequently transferred to the medical intensive care unit. On arrival to the ICU, the patient received additional supplemental IV fluid hydration. However, she did eventually require the initiation of levophed to maintain hemodynamic stability. The patient is currently documented to be overall net +3.3 L for the admission. I was notified by the nursing staff this morning that the overnight hospitalist was contacted to obtain an order for vasopressor support, it which time, she was again notified of the patient's urinalysis results. Despite this, antibiotics were again never started. Past Medical History Past Medical History (Chronic Problems): Chronic Problems (Last Reviewed 05/29/18 @ 14:51 by Lui Paul MD) Takotsubo syndrome (Chronic) Non-rheumatic tricuspid valve insufficiency (Chronic) Dilated cardiomyopathy (Chronic) Atherosclerotic heart disease of [place] coronary artery without angina pectoris (Chronic) Typical atrial flutter (Chronic) Status post placement of implantable loop recorder (Chronic) Implant 07/09 Paroxysmal atrial fibrillation (Chronic) Left ventricular hypertrophy (Chronic) Nicotine abuse (Chronic) Chronic systolic (congestive) heart failure (Chronic) History of coronary artery stent placement (Chronic) C w/PCI, aspiration thrombectomy and FEROZ to mid LAD 04/08/16 Ischemic cardiomyopathy (Chronic) Diabetes mellitus type 2 in nonobese (Chronic) Apical mural thrombus with acute [place] (Chronic) COPD (chronic obstructive pulmonary disease) (Chronic) HTN (hypertension) (Chronic) Hyperlipemia (Chronic) Medical History: Medical History (Last Reviewed 05/29/18 @ 14:51 by Lui Paul MD) Ischemic cardiomyopathy (Chronic) I25.5 Apical mural thrombus with acute [place] (Chronic) I21.29 COPD (chronic obstructive pulmonary disease) (Chronic) J44.9 Anxiety F41.9 Depression F32.9 Frequent falls R29.6 IBS (irritable bowel syndrome) K58.9 RLS (restless legs syndrome) G25.81 Cervical spinal stenosis M48.02 Multiple sclerosis G35 BRYAN (obstructive sleep apnea) G47.33 Radiculitis, thoracic M54.14 Lower limb amputation, great toe Z89.419 Acute renal failure (Inactive) Dehydration (Inactive) E86.0 Hypomagnesemia (Inactive) E83.42 Hyponatremia (Inactive) E87.1 Iron deficiency (Inactive) E61.1 Irritable bowel syndrome with diarrhea (Inactive) K58.0 Menopausal disorder (Inactive) N95.9 Metabolic encephalopathy (Inactive) G93.41 due to acute renal failure and overmedication Vitamin B12 deficiency (Inactive) E53.8 Allergies indomethacin [From Indocin] Allergy (Verified 05/29/18 11:47) Hives indomethacin sodium [From Indocin] Allergy (Verified 05/29/18 11:47) Hives iodine Allergy (Verified 05/29/18 11:47) Hives propoxyphene napsylate [From Darvocet-N] Allergy (Verified 05/29/18 11:47) Out of control aripiprazole [From Abilify] Adverse Reaction (Verified 05/29/18 11:47) Other aspirin Adverse Reaction (Verified 05/29/18 11:47) Upset Stomach when taken in high doses clindamycin Adverse Reaction (Verified 05/29/18 11:47) Nausea metformin Adverse Reaction (Verified 05/29/18 11:47) Other IT CAUSES MY KIDNEYS TO DO WEIRD THINGS sumatriptan [From Imitrex] Adverse Reaction (Verified 05/29/18 11:47) Vomiting Home Medications: Ambulatory Orders Medication Instructions Recorded Aspirin E.C. [Ecotrin] 81 mg PO DAILY@0800 10/21/16 Glimepiride [Amaryl] 4 mg PO BID 10/21/16 Clopidogrel Bisulfate [Plavix] 75 mg PO DAILY 05/18/17 lisinopril 2.5 mg tablet 2.5 mg PO DAILY #28 tab 05/26/17 Teriflunomide [Aubagio] 14 mg PO DAILY 06/02/17 ropinirole 0.5 mg tablet 2 mg PO QHS tab 06/22/17 Isosorbide Mononitrate [Isosorbide 30 mg PO DAILY 10/06/17 Mononitrate ER] Potassium Chloride [K-Dur] 20 meq PO DAILY 10/06/17 Furosemide [Lasix] 40 mg PO DAILY 10/19/17 Methadone HCl 5 mg PO QHS 10/19/17 Promethazine HCl 25 mg PO 4X/DAY PRN 10/19/17 Sucralfate [Carafate] 1 gm PO 4X/DAY 10/19/17 Albuterol Inhaler [Ventolin Hfa 2 puff INHALATION Q6H PRN PRN 10/23/17 (SP)] Carvedilol [Coreg] 3.125 mg PO BID 10/23/17 Cholecalciferol (Vitamin D3) 2,000 unit PO DAILY 10/23/17 [Vitamin D3] Hydroxyzine HCl 50 mg PO TID PRN PRN 10/26/17 Modafinil [Provigil] 200 mg PO DAILY 10/26/17 Oxycodone HCl/Acetaminophen 1 - 2 tab PO Q4H PRN PRN 10/26/17 [Oxycodone-Acetaminophen 10-325] Pantoprazole Sodium [Protonix] 40 mg PO QHS 11/23/17 Donepezil HCl [Aricept] 20 mg PO QHS 12/18/17 ferrous sulfate 325 mg (65 mg 325 mg PO DAILY tab 12/18/17 iron) tablet insulin glargine (U-100) 100 18 unit SC DAILY ml 12/18/17 unit/mL (3 mL) subcutaneous pen Rosuvastatin Calcium [Crestor] 40 mg PO QHS 01/06/18 Risperidone 1 mg PO QHS 02/23/18 Surgical History: Surgical History (Last Reviewed 05/29/18 @ 14:51 by Lui Paul MD) History of amputation of left great toe Z89.412 staph infection History of back surgery Z98.890 History of carpal tunnel release of both wrists Z98.890 History of cervical discectomy Z98.890 History of left knee surgery Z98.890 torn meniscus repair x 2 History of tonsillectomy and adenoidectomy Z98.890 History of tubal ligation Z98.51 Surgical History: adenoidectomy, tonsillectomy, - - L foot great toe ampuation, Back surgery x 3, L carpal tunnel surgery x 2, R carpal tunnel surgery x 1, R thumb reconstructive surgery. cervical spinal surgery february 27 at [facility]. Psychiatric History: Anxiety, Depression, - - Mild cognitive impairment [employer] History: - - Menopausal syndrome. Smoking Status: Current every day smoker - *Family History Maternal Family History: Family History (Last Reviewed 05/29/18 @ 14:51 by Lui Paul MD) Father Cancer Mother Cancer History Items: Cancer - mother pancreatic ca Paternal Family History: Family History (Last Reviewed 05/29/18 @ 14:51 by Lui Paul MD) Father Cancer Mother Cancer History Items: Cancer - father lung ca., - - Lung cancer Review of Systems Constitutional: Reports: Malaise, Fatigue Eyes: Denies: Blurred vision, Double vision HEENT: Denies: Head Aches, Sinus Congestion, Sinus Drainage Cardiovascular: Denies: Chest Pain, Palpitations Respiratory: Denies: Shortness of Breath, Sputum production Gastrointestinal: Reports: Diarrhea, Nausea. Denies: Abdominal Pain Genitourinary: Denies: Dysuria Musculoskeletal: Denies: Joint Pain, Joint Tenderness Skin: Denies: Rash, Wounds Neurological: Reports: Confusion Psychiatric: Denies: Anxiety, Depression, Homicidal Ideations, Suicidal Ideations Hematologic/ Lymphatic: Denies: Easy Bruising, Easy Bleeding Patient Problems: Active and Suspected Problems (Last Reviewed 05/29/18 @ 14:51 by Lui Paul MD) Hypothermia (Acute) Hypokalemia (Acute) Hypovolemic shock (Acute) Objective: The patient's most recent lab work, culture data and imaging studies have all been personally reviewed. C. difficile is negative. Blood and urine cultures are pending. Enteric bacteriology is pending. - Physical Exam General: Alert, No apparent distress, - - A bit unkempt in appearance HEENT: Atraumatic, PERRLA, Normocephalic Oral: Dry Mucosa, - - Edentulous Neck: Supple, No Nodes, Trachea Midline, - - Left subclavian triple lumen catheter in place Lungs: No rhonchi, No wheeze, No rales, Diminished Cardiovascular: Regular rate, Normal S1, Normal S2, No murmurs Abdomen: Soft, Non Tender, Hyperactive Bowel Sounds Extremities: No clubbing, No cyanosis, No edema, - - Great toe amputation noted Skin: No breakdown Musculoskeletal: Muscle Wasting Lymphatic: No Cervical, Supraclavicular, or Inguinal Adenopathy Neurological: Neuro grossly intact Psych/Mental Status: Flat Affect, Depressed Vital Signs Temp Pulse Resp BP Pulse Ox 37.2 C 53 L 12 104/48 L 100 05/30/18 06:00 05/30/18 06:00 05/30/18 06:00 05/30/18 06:30 05/30/18 06:00 Oxygen Delivery Method Room Air Weight: 149 lb 11.102 oz Body Mass Index (BMI) 23.2 Finger Stick Blood Glucose 151 Intake and Output for Last 24 Hours 05/28/18 05/29/18 05/30/18 23:59 23:59 23:59 Intake Total 2697.3 / 2697.3 1747.5 / 1747.5 Output Total 800 / 800 300 / 300 Balance 1897.3 / 1897.3 1447.5 / 1447.5 Microbiology Past 72 Hours 05/29/18 10:45 C. difficile DNA Amplification - Final Stool 05/29/18 11:25 Influenza Types A,B Direct FA (ANTONIA) - Final Mucosa - Nasopharyngeal Laboratory Tests Past 24 Hrs 05/29/18 05/29/18 05/29/18 10:45 10:45 10:45 WBC 11.3 H RBC 4.61 Hgb 13.7 Hct 39.4 MCV 85.5 MCH 29.7 MCHC 34.8 RDW 15.9 H RDW Differential 49.2 H Plt Count 221 MPV 9.4 Immature Gran % (Auto) 0.300 Neut % (Auto) 84.8 H Lymph % (Auto) 5.8 L Morris % (Auto) 8.6 Eos % (Auto) 0.4 Baso % (Auto) 0.1 Absolute Neuts (auto) 9.6 H Absolute Lymphs (auto) 0.66 L Total Counted Not Reportable PT 13.3 INR 1.0 APTT 23.7 L Sodium Potassium Chloride Carbon Dioxide Anion Gap BUN Creatinine Estim Creat Clear Calc Est GFR (MDRD) Af Amer Est GFR (MDRD) Non-Af BUN/Creatinine Ratio Glucose Lactic Acid Calcium Magnesium Total Bilirubin AST ALT Alkaline Phosphatase Total Creatine Kinase Troponin I Total Protein Albumin Globulin Albumin/Globulin Ratio TSH Urine Color Urine Clarity Urine pH Ur Specific [place] Urine Protein Urine Glucose (UA) Urine Ketones Urine Occult Blood Urine Nitrite Urine Bilirubin Urine Urobilinogen Ur Leukocyte Esterase Urine RBC Urine WBC Ur Squamous Epith Cells Urine Bacteria Urine Mucus Salicylates Urine Opiates Screen Urine Methadone Screen Acetaminophen Ur Barbiturates Screen Ur Phencyclidine Scrn Ur Amphetamines Screen U Methamphetamin-MDMA U Benzodiazepines Scrn Urine Cocaine Screen U Cannabinoids Screen Ur Drug Screen Comment Ethyl Alcohol 8.0 05/29/18 05/29/18 05/29/18 10:45 10:45 10:45 WBC RBC Hgb Hct MCV MCH MCHC RDW RDW Differential Plt Count MPV Immature Gran % (Auto) Neut % (Auto) Lymph % (Auto) Morris % (Auto) Eos % (Auto) Baso % (Auto) Absolute Neuts (auto) Absolute Lymphs (auto) Total Counted PT INR APTT Sodium 130 L Potassium 3.0 L Chloride 94 L Carbon Dioxide 22.0 Anion Gap 14 BUN 35 H Creatinine 3.48 H Estim Creat Clear Calc 14.89 Est GFR (MDRD) Af Amer 17 L Est GFR (MDRD) Non-Af 14 L BUN/Creatinine Ratio 10.1 Glucose 173 H Lactic Acid 1.4 Calcium 9.3 Magnesium Total Bilirubin 0.50 AST 47 H ALT 26 Alkaline Phosphatase 105 Total Creatine Kinase Troponin I < 0.015 Total Protein 6.3 L Albumin 2.6 L Globulin 3.7 Albumin/Globulin Ratio 0.7 L TSH Urine Color Urine Clarity Urine pH Ur Specific [place] Urine Protein Urine Glucose (UA) Urine Ketones Urine Occult Blood Urine Nitrite Urine Bilirubin Urine Urobilinogen Ur Leukocyte Esterase Urine RBC Urine WBC Ur Squamous Epith Cells Urine Bacteria Urine Mucus Salicylates 14.6 Urine Opiates Screen Urine Methadone Screen Acetaminophen < 2.0 L Ur Barbiturates Screen Ur Phencyclidine Scrn Ur Amphetamines Screen U Methamphetamin-MDMA U Benzodiazepines Scrn Urine Cocaine Screen U Cannabinoids Screen Ur Drug Screen Comment Ethyl Alcohol 05/29/18 05/29/18 05/29/18 10:50 10:50 11:26 WBC RBC Hgb Hct MCV MCH MCHC RDW RDW Differential Plt Count MPV Immature Gran % (Auto) Neut % (Auto) Lymph % (Auto) Morris % (Auto) Eos % (Auto) Baso % (Auto) Absolute Neuts (auto) Absolute Lymphs (auto) Total Counted PT INR APTT Sodium Potassium Chloride Carbon Dioxide Anion Gap BUN Creatinine Estim Creat Clear Calc Est GFR (MDRD) Af Amer Est GFR (MDRD) Non-Af BUN/Creatinine Ratio Glucose Lactic Acid Calcium Magnesium 2.3 Total Bilirubin AST ALT Alkaline Phosphatase Total Creatine Kinase 649 H Troponin I Total Protein Albumin Globulin Albumin/Globulin Ratio TSH 0.49 Urine Color Urine Clarity Urine pH Ur Specific [place] Urine Protein Urine Glucose (UA) Urine Ketones Urine Occult Blood Urine Nitrite Urine Bilirubin Urine Urobilinogen Ur Leukocyte Esterase Urine RBC Urine WBC Ur Squamous Epith Cells Urine Bacteria Urine Mucus Salicylates Urine Opiates Screen NEGATIVE Urine Methadone Screen NEGATIVE Acetaminophen Ur Barbiturates Screen NEGATIVE Ur Phencyclidine Scrn NEGATIVE Ur Amphetamines Screen NEGATIVE U Methamphetamin-MDMA NEGATIVE U Benzodiazepines Scrn NEGATIVE Urine Cocaine Screen NEGATIVE U Cannabinoids Screen NEGATIVE Ur Drug Screen Comment Ethyl Alcohol 05/29/18 05/29/18 05/29/18 11:26 19:55 22:40 WBC RBC Hgb Hct MCV MCH MCHC RDW RDW Differential Plt Count MPV Immature Gran % (Auto) Neut % (Auto) Lymph % (Auto) [place] % (Auto) Eos % (Auto) Baso % (Auto) Absolute Neuts (auto) Absolute Lymphs (auto) Total Counted PT INR APTT Sodium Potassium Chloride Carbon Dioxide Anion Gap BUN Creatinine Estim Creat Clear Calc Est GFR (MDRD) Af Amer Est GFR (MDRD) Non-Af BUN/Creatinine Ratio Glucose Lactic Acid Calcium Magnesium Total Bilirubin AST ALT Alkaline Phosphatase Total Creatine Kinase Troponin I 0.027 0.024 Total Protein Albumin Globulin Albumin/Globulin Ratio TSH Urine Color Yellow Urine Clarity Cloudy Urine pH 5.0 Ur Specific [place] 1.015 Urine Protein 30 H Urine Glucose (UA) Normal Urine Ketones 5 H Urine Occult Blood 50 H Urine Nitrite Negative Urine Bilirubin 3 H Urine Urobilinogen 4 H Ur Leukocyte Esterase 500 H Urine RBC 0 SEEN Urine WBC 5-10 SEEN Ur Squamous Epith Cells 5-10 SEEN Urine Bacteria 3+ Urine Mucus 0 SEEN Salicylates Urine Opiates Screen Urine Methadone Screen Acetaminophen Ur Barbiturates Screen Ur Phencyclidine Scrn Ur Amphetamines Screen U Methamphetamin-MDMA U Benzodiazepines Scrn Urine Cocaine Screen U Cannabinoids Screen Ur Drug Screen Comment Ethyl Alcohol 05/30/18 05/30/18 05/30/18 01:35 05:20 05:20 WBC 8.0 RBC 3.90 L Hgb 11.5 L Hct 33.6 L MCV 86.2 MCH 29.5 MCHC 34.2 RDW 15.8 H RDW Differential 49.9 H Plt Count 190 MPV 8.7 Immature Gran % (Auto) Neut % (Auto) Lymph % (Auto) [place] % (Auto) Eos % (Auto) Baso % (Auto) Absolute Neuts (auto) Absolute Lymphs (auto) Total Counted PT INR APTT Sodium 138 Potassium 3.1 L Chloride 112 H Carbon Dioxide 16.0 L Anion Gap 10 BUN 24 H Creatinine 1.48 H Estim Creat Clear Calc 35.01 Est GFR (MDRD) Af Amer 46 L Est GFR (MDRD) Non-Af 38 L BUN/Creatinine Ratio 16.2 Glucose 99 Lactic Acid Calcium 7.9 L Magnesium 2.0 Total Bilirubin AST ALT Alkaline Phosphatase Total Creatine Kinase Troponin I 0.025 Total Protein Albumin Globulin Albumin/Globulin Ratio TSH Urine Color Urine Clarity Urine pH Ur Specific [place] Urine Protein Urine Glucose (UA) Urine Ketones Urine Occult Blood Urine Nitrite Urine Bilirubin Urine Urobilinogen Ur Leukocyte Esterase Urine RBC Urine WBC Ur Squamous Epith Cells Urine Bacteria Urine Mucus Salicylates Urine Opiates Screen Urine Methadone Screen Acetaminophen Ur Barbiturates Screen Ur Phencyclidine Scrn Ur Amphetamines Screen U Methamphetamin-MDMA U Benzodiazepines Scrn Urine Cocaine Screen U Cannabinoids Screen Ur Drug Screen Comment Ethyl Alcohol POC Glucose 05/29/18 21:23 POC Glucose 179 H Clinical Impression(s) from Imaging Studies Chest X-Ray 05/29/18 11:00 IMPRESSION: 1. No airspace consolidation or pleural effusion Electronically Signed: Conrad Schwartz MD at 11:16 EST , Service support , Chest X-Ray 05/29/18 15:33 IMPRESSION: Left-sided central venous line present with tip superimposed on the distal SVC. There is no pneumothorax. No acute cardiopulmonary disease process is seen. Electronically Signed: Jesús Copeland MD at 16:35 EST , Service support , Assessment/Plan Active and Suspected Problems (Last Reviewed 05/29/18 @ 14:51 by Lui Paul MD) Hypothermia (Acute) Hypokalemia (Acute) Hypovolemic shock (Acute) RECOMMENDATIONS: 1. Discontinue normal saline, given rising chloride and transition to LR replacement fluids with potassium supplementation. 2. Start antibiotics, Zosyn, as ordered. 3. Provide additional potassium supplementation. 4. Continue Lovenox for DVT prophylaxis 5. Crisis evaluation once medically stabilized IMPRESSIONS: 1. Septic shock While the patient was initially admitted to the hospital under the pretenses that she had hypovolemic shock, the patient did not responded avidly from a hemodynamic perspective to volume expansion. She did have to be placed on vasopressor support to maintain hemodynamic stability. It does appear to me that she clearly had a urinalysis, which was concerning for infection on May 29. However, antibiotics were never initiated. While the ED physician noted that the patient did not meet SIRS criteria, there is a documented respiratory rate of 23 in the ED documentation, along with a systolic blood pressure less than 100 mmHg, which would technically give the patient a qSOFA of 2, indicating that the patient would be at high risk to go on to develop sepsis. Regardless of whether the patient technically met criteria for sepsis, she was noted to be incontinent of stool and had laboratory findings concerning for a urinary tract infection. At this time, the patient has been adequately volume resuscitated and will be maintained on levophed to maintain a mean arterial pressure at or above 65 mmHg. In addition, the patient was started on Zosyn this morning, pending culture results. 2. Acute kidney injury/NAGMA Likely prerenal in etiology and related to a combination of hypovolemic and septic shock. Creatinine has improved with volume expansion. Continue vasopressor support to maintain hemodynamic stability. Urine output is appropriate at this time. There is no indication for renal replacement therapy. The patient supplemental IV fluid hydration has been transition from normal saline to lactated Ringer's. 3. Hypokalemia Aggressive electrolyte repletion is currently underway. Recheck levels in the morning. 4. Suicidal ideations/history of severe depression The patient reportedly had suicidal ideations upon contact with EMS. She is currently pink slipped. Recommend crisis evaluation, once medically stabilized. 5. Obstructive sleep apnea The patient completed a sleep study in 2017, for which it was recommended that she be placed on CPAP with a pressure support of 14 cm of water. Recommend that this be continued empirically while inpatient. 6. Chronic systolic dysfunction/history of coronary artery disease/history of atrial fibrillation/flutter Continue current medical management, with the exception of antihypertensive medications. Recommend judicious use of supplemental IV fluids. 7. Personal history of MS/hypertension/diabetes/hyperlipidemia/chronic pain syndrome Complicates care, management, recovery and prognosis. Continue to hold home antihypertensives. TIME: 40 minutes of critical care time, independent of procedures, was spent addressing the patient's septic shock, acute kidney injury, electrolyte disturbances, suicidal ideations, review of all data and collaboration with the care team. ([id number]) Code Visit 9xxxx: [id number] Critical care first hour
[2018-05-30 07:06] LABS: Bedside Glucose 105 mg/dL (70-110)
[2018-05-30] MEDS: Piperacil/Tazobactam 3.375 GM/50 ML ML IV ×3 (07:25→21:32)
[2018-05-30] MEDS: Aspirin E.C. 81 MG Tablet PO (08:28)
[2018-05-30] MEDS: Enoxaparin 30 MG/0.3 ML Syringe SC (08:30)
[2018-05-30] MEDS: Clopidogrel Bisulfate 75 MG Tablet PO (08:32)
[2018-05-30] MEDS: Modafinil 200 MG Tablet PO (08:37)
--- NOTE | 2018-05-30 08:41 | PCM.PN.HOSP ---
Patient Problems: Active and Suspected Problems (Last Reviewed 05/29/18 @ 14:51 by Lui Paul MD) Hypothermia (Acute) Hypokalemia (Acute) Hypovolemic shock (Acute) Subjective: Patient is a 62-year-old lady with multiple comorbidities who called the squad complaining of suicidal ideation patient was found to be unkempt. Transferred to the emergency department where patient was found to be hypotensive and hypothermic with electrolyte abnormalities including acute kidney injury and hypokalemia. Patient was started on aggressive IV fluid resuscitation and admitted to the intensive care unit. Patient was found to have turbid urine following insertion of Rodney catheter urinalysis was subsequently ordered an assessment of septic shock was made following receipt of patient urinalysis since it became evident that patient had a source of infection. Patient had to be started on Levophed since she still remained hypotensive following fluid resuscitation Objective: GENERAL: Frail looking HEENT: Atraumatic; dry oral mucosa EYES; Anicteric, Normal Conjunctiva NECK; supple, normal thyroid, RESPIRATORY: Diminished to auscultation bilaterally, CARDIOVASCULAR: Regular S1 S2, no audible murmurs GI: soft, non-tender, normoactive bowel sounds, : Excoriations in the perineum EXTREMITIES: Contractures involving both lower extremities MUSCULOSKELETAL: muscle waisting NEURO: Awake; no lateralizing signs. SKIN: No Rash PSYCH; flat affect Vitals/I&O's: Vital Signs Temp Pulse Resp BP Pulse Ox 99 F 55 L 19 H 136/59 H 100 05/30/18 07:53 05/30/18 07:53 05/30/18 07:53 05/30/18 07:53 05/30/18 07:53 Oxygen Delivery Method Room Air Weight: 67.9 kg Body Mass Index (BMI) 23.2 Finger Stick Blood Glucose 151 Intake and Output for Last 24 Hours 05/28/18 05/29/18 05/30/18 23:59 23:59 23:59 Intake Total 2697.3 / 2697.3 1747.5 / 1747.5 Output Total 800 / 800 300 / 300 Balance 1897.3 / 1897.3 1447.5 / 1447.5 Microbiology Past 72 Hours 05/29/18 10:45 Stool C. difficile DNA Amplification - Final 05/29/18 11:25 Mucosa - Nasopharyngeal Influenza Types A,B Direct FA (ANTONIA) - Final Laboratory Results 05/29/18 10:45: WBC 11.3 H, RBC 4.61, Hgb 13.7, Hct 39.4, MCV 85.5, MCH 29.7, MCHC 34.8, RDW 15.9 H, RDW Differential 49.2 H, Plt Count 221, MPV 9.4, Immature Gran % (Auto) 0.300, Neut % (Auto) 84.8 H, Lymph % (Auto) 5.8 L, [place] % (Auto) 8.6, Eos % (Auto) 0.4, Baso % (Auto) 0.1, Absolute Neuts (auto) 9.6 H, Absolute Lymphs (auto) 0.66 L, Total Counted Not Reportable 05/29/18 10:45: Ethyl Alcohol 8.0 05/29/18 10:45: PT 13.3, INR 1.0, APTT 23.7 L 05/29/18 10:45: Sodium 130 L, Potassium 3.0 L, Chloride 94 L, Carbon Dioxide 22.0, Anion Gap 14, BUN 35 H, Creatinine 3.48 H, Estim Creat Clear Calc 14.89, Est GFR (MDRD) Af Amer 17 L, Est GFR (MDRD) Non-Af 14 L, BUN/Creatinine Ratio 10.1, Glucose 173 H, Calcium 9.3, Total Bilirubin 0.50, AST 47 H, ALT 26, Alkaline Phosphatase 105, Troponin I < 0.015, Total Protein 6.3 L, Albumin 2.6 L, Globulin 3.7, Albumin/Globulin Ratio 0.7 L 05/29/18 10:45: Lactic Acid 1.4 05/29/18 10:45: Salicylates 14.6, Acetaminophen < 2.0 L 05/29/18 10:50: Magnesium 2.3, TSH 0.49 05/29/18 10:50: Total Creatine Kinase 649 H 05/29/18 11:26: Urine Opiates Screen NEGATIVE, Urine Methadone Screen NEGATIVE, Ur Barbiturates Screen NEGATIVE, Ur Phencyclidine Scrn NEGATIVE, Ur Amphetamines Screen NEGATIVE, U Methamphetamin-MDMA NEGATIVE, U Benzodiazepines Scrn NEGATIVE, Urine Cocaine Screen NEGATIVE, U Cannabinoids Screen NEGATIVE, Ur Drug Screen Comment 05/29/18 11:26: Urine Color Yellow, Urine Clarity Cloudy, Urine pH 5.0, Ur Specific [place] 1.015, Urine Protein 30 H, Urine Glucose (UA) Normal, Urine Ketones 5 H, Urine Occult Blood 50 H, Urine Nitrite Negative, Urine Bilirubin 3 H, Urine Urobilinogen 4 H, Ur Leukocyte Esterase 500 H, Urine RBC 0 SEEN, Urine WBC 5-10 SEEN, Ur Squamous Epith Cells 5-10 SEEN, Urine Bacteria 3+, Urine Mucus 0 SEEN 05/29/18 19:55: Troponin I 0.027 05/29/18 21:23: POC Glucose 179 H 05/29/18 22:40: Troponin I 0.024 05/30/18 01:35: Troponin I 0.025 05/30/18 05:20: Sodium 138, Potassium 3.1 L, Chloride 112 H, Carbon Dioxide 16.0 L, Anion Gap 10, BUN 24 H, Creatinine 1.48 H, Estim Creat Clear Calc 35.01, Est GFR (MDRD) Af Amer 46 L, Est GFR (MDRD) Non-Af 38 L, BUN/Creatinine Ratio 16.2, Glucose 99, Calcium 7.9 L, Magnesium 2.0 05/30/18 05:20: WBC 8.0, RBC 3.90 L, Hgb 11.5 L, Hct 33.6 L, MCV 86.2, MCH 29.5, MCHC 34.2, RDW 15.8 H, RDW Differential 49.9 H, Plt Count 190, MPV 8.7 05/30/18 06:49: POC Glucose 105 05/30/18 08:20: MRSA (PCR) Pending Current Medications Acetaminophen (Tylenol) 650 mg PO Q6H PRN PRN PRN Reason: Mild Pain (1-3)/Temp > 100.7 F Al Hydroxide/Mg Hydroxide (Mylanta Ii) 30 ml PO Q6H PRN PRN PRN Reason: Gastric burning Albuterol Sulfate (Ventolin Aerosols) 2.5 mg INHALATION Q4H PRN PRN Reason: SOB &/OR WHEEZING Aspirin (Ecotrin) 81 mg PO DAILY@0800 [facility]I Last Admin: 05/30/18 08:28 Dose: 81 mg Bisacodyl (Dulcolax) 5 mg PO DAILY PRN PRN PRN Reason: Constipation Calamine/Phenol (Calmoseptine Ointment) 1 applic TOPICAL TID [facility]; Protocol Last Admin: 05/30/18 05:43 Dose: 1 applicatio Chlorhexidine Gluconate () 1 each TOPICAL DAILY [facility] Last Admin: 05/30/18 05:56 Dose: 1 each Cholecalciferol (Vitamin D) 2,000 unit PO DAILYCM [facility] Last Admin: 05/30/18 08:28 Dose: 2,000 unit Clopidogrel Bisulfate (Plavix) 75 mg PO DAILY [facility] Last Admin: 05/30/18 08:32 Dose: 75 mg Dextrose (D50w Syringe) 0 gm IV X1 PRN; Protocol PRN Reason: Hypoglycemia Donepezil HCl (Aricept) 20 mg PO QHS [facility] Last Admin: 05/29/18 21:48 Dose: Not Given Enoxaparin Sodium (Lovenox) 30 mg SC DAILY@1000 [facility] Last Admin: 05/30/18 08:30 Dose: 30 mg Glucagon () 1 mg IM .X1 PRN PRN Reason: Hypoglycemia Hydroxyzine Pamoate (Vistaril Pamoate Capsule) 50 mg PO TID PRN PRN PRN Reason: ITCHING Piperacillin Sod/Tazobactam Sod (Zosyn) 3.375 gm in 50 mls @ 12.5 mls/hr IV Q8 [facility] Last Admin: 05/30/18 07:25 Dose: 12.5 mls/hr Potassium Chloride 20 meq/ (Lactated Ringer's) 1,010 mls @ 100 mls/hr IV .Q10H6M [facility] Last Admin: 05/30/18 07:25 Dose: 100 mls/hr Norepinephrine Bitartrate 8 mg (/ Dextrose) 258 mls @ 9.68 mls/hr IV .[id number] [facility]; Protocol Last Admin: 05/30/18 07:28 Dose: Not Given Insulin Glargine (Lantus (Bkc)) 18 units SC DAILY [facility] Last Admin: 05/30/18 08:29 Dose: 18 u Insulin Human Lispro (Humalog Kwikpen (Bkc)) 0 unit SQ ACHS [facility]; Protocol Last Admin: 05/30/18 07:28 Dose: Not Given Magnesium Hydroxide (Milk Of Magnesia) 30 ml PO DAILY PRN PRN Reason: Constipation Methadone HCl () 5 mg PO QHS [facility] Last Admin: 05/29/18 21:48 Dose: Not Given Modafinil (Provigil) 200 mg PO DAILY [facility] Last Admin: 05/30/18 08:37 Dose: 200 mg Nicotine (Nicoderm Cq (Pbkc)) 21 mg TRANSDERM. DAILY [facility] Last Admin: 05/30/18 08:31 Dose: 21 mg Non-Formulary Medication (Teriflunomide) 14 mg PO DAILY [facility] Oxycodone HCl (Oxyir) 5 - 10 mg PO Q4H PRN PRN PRN Reason: MOD-SEVERE PAIN (4-10/10) Pantoprazole Sodium (Protonix) 40 mg PO QHS [facility] Last Admin: 05/29/18 21:48 Dose: Not Given Potassium Chlor[facility] (K-Dur) [facility]q [facility] Last Admin: 05/30/18 08:28 Dose: 20 meq Pramipexole Dihydrochloride (Mirapex) 0.5 mg PO DAILY@2100 [facility] Last Admin: 05/29/18 21:48 Dose: Not Given Promethazine HCl (Phenergan Tablet) 25 mg PO 4X/DAY PRN PRN Reason: NAUSEA/VOMITING Risperidone (Risperdal) 1 mg PO QHS [facility] Last Admin: 05/29/18 21:48 Dose: Not Given Sodium Chloride () 5 - 15 ml IV UD PRN PRN Reason: SALINE FLUSH Sodium Chloride () 10 - 40 ml IV UD PRN PRN Reason: MULTILUMEN/HICMAN CATH FLUSH Last Admin: 05/30/18 05:43 Dose: 10 ml Sucralfate (Carafate) 1 gm PO 1HR_ACHS [facility] Last Admin: 05/30/18 06:09 Dose: 1 gm Medical Necessity - Tobacco Use Smoking Status: Current every day smoker Assessment/Plan All Active Problems (Last Reviewed 05/29/18 @ 14:51 by Lui Paul MD) Hypothermia (Acute) Hypokalemia (Acute) Hypovolemic shock (Acute) Chest pain (Acute) Suicidal ideation (Acute) Acute ST segment elevation [place] (Resolved) Shortness of breath (Resolved) Syncope (Resolved) Chest pain (Resolved) STEMI (ST elevation myocardial infarction) (Resolved) Takotsubo cardiomyopathy (Resolved) Takotsubo cardiomyopathy (Resolved) Patient is a 62-year-old lady with multiple comorbidities who called the squad complaining of suicidal ideation patient was found to be unkempt. Transferred to the emergency department where patient was found to be hypotensive and hypothermic with electrolyte abnormalities including acute kidney injury and hypokalemia 1. Shock to combination of hypovolemic shock from severe dehydration as well as septic shock from acute cystitis vision managing ICU with aggressive IV fluid resuscitation as well as pressors with consultation placed to the operator engineer. Patient has been seen by Dr. Lopez he is noted recommendations reviewed Case discussed with him as well 2. Hypovolemic shock secondary to severe dehydration from patient's diarrhea. Patient admitted to the intensive care unit currently being resuscitated with IV fluids and later vasopressors this patient did not respond appropriately to IV fluid resuscitation 3. Septic shock from acute cystitis patient is on Zosyn in addition to IV fluids cultures sent plan is to adjust antibiotic therapy based on results of cultures) blood and urine) 4. Hypothermia patient did receive warm saline in the ED with core temperature increasing from 94 on admission to 97 at the time of admission 5. Acute kidney injury secondary to severe dehydration from diarrhea being resuscitated with IV fluid function improving 6. Hypokalemia corrected per protocol 7. Hyponatremia secondary to hypovolemic hyponatremia patient is currently being resuscitated with IV fluids with monitoring of electrolyte 8. Severe depression with suicidal ideation. Plan is to obtain consultation from the crisis center once patient condition has stabilized 9. History of coronary artery disease with history of LHC w/PCI, aspiration thrombectomy and FEROZ to mid LAD 04/08/16 10. Multiple sclerosis without acute exacerbation. Continue with home meds 11. Hypertension: Patient blood pressure medications held in view of patient presented with low blood pressure 12. History of A. fib/flutter was previously a systemic anticoagulation currently on none 13. Diabetes mellitus type II ; Home regimen continued also added long acting insulin as well as Accu-Cheks before meals and at bedtime and covered with sliding scale insulin 14. Dyslipidemia-patient is on statin therapy, continued at home dose 15. History of Takotsubo syndrome 16. COPD currently not in exacerbation 17. DVT prophylaxis?Lovenox Microbiology 05/29/18 10:45 Stool C. difficile DNA Amplification - Final 05/29/18 11:25 Mucosa - Nasopharyngeal Influenza Types A,B Direct FA (ANTONIA) - Final Clinical Impression(s) from Imaging Studies Chest X-Ray 05/29/18 11:00 IMPRESSION: 1. No airspace consolidation or pleural effusion Electronically Signed: Conrad Schwartz MD at 11:16 EST , Service support , Chest X-Ray 05/29/18 15:33 IMPRESSION: Left-sided central venous line present with tip superimposed on the distal SVC. There is no pneumothorax. No acute cardiopulmonary disease process is seen. Electronically Signed: Jesús Copeland MD at 16:35 EST , Service support , Code Visit Inpatient E&M: 88155 Subs Hosp L3
--- NOTE | 2018-05-30 08:46 | PN_ITS ---
Patient Problems: Active and Suspected Problems (Last Reviewed 05/29/18 @ 14:51 by Liu Paul MD) Hypothermia (Acute) Hypokalemia (Acute) Hypovolemic shock (Acute) Subjective: Patient is a 62-year-old lady with multiple comorbidities who called the squad complaining of suicidal ideation patient was found to be unkempt. Transferred to the emergency department where patient was found to be hypotensive and hypothermic with electrolyte abnormalities including acute kidney injury and hypokalemia. Patient was started on aggressive IV fluid resuscitation and admitted to the intensive care unit. Patient was found to have turbid urine following insertion of Rodney catheter urinalysis was subsequently ordered an assessment of septic shock was made following receipt of patient urinalysis since it became evident that patient had a source of infection. Patient had to be started on Levophed since she still remained hypotensive following fluid resuscitation Objective: GENERAL: Frail looking HEENT: Atraumatic; dry oral mucosa EYES; Anicteric, Normal Conjunctiva NECK; supple, normal thyroid, RESPIRATORY: Diminished to auscultation bilaterally, CARDIOVASCULAR: Regular S1 S2, no audible murmurs GI: soft, non-tender, normoactive bowel sounds, : Excoriations in the perineum EXTREMITIES: Contractures involving both lower extremities MUSCULOSKELETAL: muscle waisting NEURO: Awake; no lateralizing signs. SKIN: No Rash PSYCH; flat affect Vitals/I&O's: Vital Signs Temp Pulse Resp BP Pulse Ox 99 F 55 L 19 H 136/59 H 100 05/30/18 07:53 05/30/18 07:53 05/30/18 07:53 05/30/18 07:53 05/30/18 07:53 Oxygen Delivery Method Room Air Weight: 67.9 kg Body Mass Index (BMI) 23.2 Finger Stick Blood Glucose 151 Intake and Output for Last 24 Hours 05/28/18 05/29/18 05/30/18 23:59 23:59 23:59 Intake Total 2697.3 / 2697.3 1747.5 / 1747.5 Output Total 800 / 800 300 / 300 Balance 1897.3 / 1897.3 1447.5 / 1447.5 Microbiology Past 72 Hours 05/29/18 10:45 Stool C. difficile DNA Amplification - Final 05/29/18 11:25 Mucosa - Nasopharyngeal Influenza Types A,B Direct FA (ANTONIA) - Final Laboratory Results 05/29/18 10:45: WBC 11.3 H, RBC 4.61, Hgb 13.7, Hct 39.4, MCV 85.5, MCH 29.7, MCHC 34.8, RDW 15.9 H, RDW Differential 49.2 H, Plt Count 221, MPV 9.4, Immature Gran % (Auto) 0.300, Neut % (Auto) 84.8 H, Lymph % (Auto) 5.8 L, [place] % (Auto) 8.6, Eos % (Auto) 0.4, Baso % (Auto) 0.1, Absolute Neuts (auto) 9.6 H, Absolute Lymphs (auto) 0.66 L, Total Counted Not Reportable 05/29/18 10:45: Ethyl Alcohol 8.0 05/29/18 10:45: PT 13.3, INR 1.0, APTT 23.7 L 05/29/18 10:45: Sodium 130 L, Potassium 3.0 L, Chloride 94 L, Carbon Dioxide 22.0, Anion Gap 14, BUN 35 H, Creatinine 3.48 H, Estim Creat Clear Calc 14.89, Est GFR (MDRD) Af Amer 17 L, Est GFR (MDRD) Non-Af 14 L, BUN/Creatinine Ratio 10.1, Glucose 173 H, Calcium 9.3, Total Bilirubin 0.50, AST 47 H, ALT 26, Alkaline Phosphatase 105, Troponin I < 0.015, Total Protein 6.3 L, Albumin 2.6 L , Globulin 3.7, Albumin/Globulin Ratio 0.7 L 05/29/18 10:45: Lactic Acid 1.4 05/29/18 10:45: Salicylates 14.6, Acetaminophen < 2.0 L 05/29/18 10:50: Magnesium 2.3, TSH 0.49 05/29/18 10:50: Total Creatine Kinase 649 H 05/29/18 11:26: Urine Opiates Screen NEGATIVE, Urine Methadone Screen NEGATIVE, Ur Barbiturates Screen NEGATIVE, Ur Phencyclidine Scrn NEGATIVE, Ur Amphetamines Screen NEGATIVE, U Methamphetamin-MDMA NEGATIVE, U Benzodiazepines Scrn NEGATIVE, Urine Cocaine Screen NEGATIVE, U Cannabinoids Screen NEGATIVE, Ur Drug Screen Comment 05/29/18 11:26: Urine Color Yellow, Urine Clarity Cloudy, Urine pH 5.0, Ur Specific [place] 1.015, Urine Protein 30 H, Urine Glucose (UA) Normal, Urine Ketones 5 H, Urine Occult Blood 50 H, Urine Nitrite Negative, Urine Bilirubin 3 H, Urine Urobilinogen 4 H, Ur Leukocyte Esterase 500 H, Urine RBC 0 SEEN, Urine WBC 5-10 SEEN, Ur Squamous Epith Cells 5-10 SEEN, Urine Bacteria 3+, Urine Mucus 0 SEEN 05/29/18 19:55: Troponin I 0.027 05/29/18 21:23: POC Glucose 179 H 05/29/18 22:40: Troponin I 0.024 05/30/18 01:35: Troponin I 0.025 05/30/18 05:20: Sodium 138, Potassium 3.1 L, Chloride 112 H, Carbon Dioxide 16.0 L, Anion Gap 10, BUN 24 H, Creatinine 1.48 H, Estim Creat Clear Calc 35.01, Est GFR (MDRD) Af Amer 46 L, Est GFR (MDRD) Non-Af 38 L, BUN/Creatinine Ratio 16.2, Glucose 99, Calcium 7.9 L, Magnesium 2.0 05/30/18 05:20: WBC 8.0, RBC 3.90 L, Hgb 11.5 L, Hct 33.6 L, MCV 86.2, MCH 29.5, MCHC 34.2, RDW 15.8 H, RDW Differential 49.9 H, Plt Count 190, MPV 8.7 05/30/18 06:49: POC Glucose 105 05/30/18 08:20: MRSA (PCR) Pending Current Medications Acetaminophen (Tylenol) 650 mg PO Q6H PRN PRN PRN Reason: Mild Pain (1-3)/Temp > 100.7 F Al Hydroxide/Mg Hydroxide (Mylanta Ii) 30 ml PO Q6H PRN PRN PRN Reason: Gastric burning Albuterol Sulfate (Ventolin Aerosols) 2.5 mg INHALATION Q4H PRN PRN Reason: SOB &/OR WHEEZING Aspirin (Ecotrin) 81 mg PO DAILY@0800 [facility] Last Admin: 05/30/18 08:28 Dose: 81 mg Bisacodyl (Dulcolax) 5 mg PO DAILY PRN PRN PRN Reason: Constipation Calamine/Phenol (Calmoseptine Ointment) 1 applic TOPICAL TID [facility]; Protocol Last Admin: 05/30/18 05:43 Dose: 1 applicatio Chlorhexidine Gluconate () 1 each TOPICAL DAILY [facility] Last Admin: 05/30/18 05:56 Dose: 1 each Cholecalciferol (Vitamin D) 2,000 unit PO DAILYCM [facility] Last Admin: 05/30/18 08:28 Dose: 2,000 unit Clopidogrel Bisulfate (Plavix) 75 mg PO DAILY [facility] Last Admin: 05/30/18 08:32 Dose: 75 mg Dextrose (D50w Syringe) 0 gm IV X1 PRN; Protocol PRN Reason: Hypoglycemia Donepezil HCl (Aricept) 20 mg PO QHS [facility] Last Admin: 05/29/18 21:48 Dose: Not Given Enoxaparin Sodium (Lovenox) 30 mg SC DAILY@1000 [facility] Last Admin: 05/30/18 08:30 Dose: 30 mg Glucagon () 1 mg IM .X1 PRN PRN Reason: Hypoglycemia Hydroxyzine Pamoate (Vistaril Pamoate Capsule) 50 mg PO TID PRN PRN PRN Reason: ITCHING Piperacillin Sod/Tazobactam Sod (Zosyn) 3.375 gm in 50 mls @ 12.5 mls/hr IV Q8 [facility] Last Admin: 05/30/18 07:25 Dose: 12.5 mls/hr Potassium Chloride 20 meq/ (Lactated Ringer's) 1,010 mls @ 100 mls/hr IV .Q10H6M [facility] Last Admin: 05/30/18 07:25 Dose: 100 mls/hr Norepinephrine Bitartrate 8 mg (/ Dextrose) 258 mls @ 9.68 mls/hr IV .[id number] [facility]; Protocol Last Admin: 05/30/18 07:28 Dose: Not Given Insulin Glargine (Lantus (Bkc)) 18 units SC DAILY [facility] Last Admin: 05/30/18 08:29 Dose: 18 u Insulin Human Lispro (Humalog Kwikpen (Bkc)) 0 unit SQ ACHS [facility]; Protocol Last Admin: 05/30/18 07:28 Dose: Not Given Magnesium Hydroxide (Milk Of Magnesia) 30 ml PO DAILY PRN PRN Reason: Constipation Methadone HCl () 5 mg PO QHS [facility] Last Admin: 05/29/18 21:48 Dose: Not Given Modafinil (Provigil) 200 mg PO DAILY [facility] Last Admin: 05/30/18 08:37 Dose: 200 mg Nicotine (Nicoderm Cq (Pbkc)) 21 mg TRANSDERM. DAILY [facility] Last Admin: 05/30/18 08:31 Dose: 21 mg Non-Formulary Medication (Teriflunomide) 14 mg PO DAILY [facility] Oxycodone HCl (Oxyir) 5 - 10 mg PO Q4H PRN PRN PRN Reason: MOD-SEVERE PAIN (4-10/10) Pantoprazole Sodium (Protonix) 40 mg PO QHS [facility] Last Admin: 05/29/18 21:48 Dose: Not Given Potassium Ch[facility] ([facility]) [facility] Last Admin: 05/30/18 08:28 Dose: 20 meq Pramipexole Dihydrochloride (Mirapex) 0.5 mg PO DAILY@2100 [facility] Last Admin: 05/29/18 21:48 Dose: Not Given Promethazine HCl (Phenergan Tablet) 25 mg PO 4X/DAY PRN PRN Reason: NAUSEA/VOMITING Risperidone (Risperdal) 1 mg PO QHS [facility] Last Admin: 05/29/18 21:48 Dose: Not Given Sodium Chloride () 5 - 15 ml IV UD PRN PRN Reason: SALINE FLUSH Sodium Chloride () 10 - 40 ml IV UD PRN PRN Reason: MULTILUMEN/HICMAN CATH FLUSH Last Admin: 05/30/18 05:43 Dose: 10 ml Sucralfate (Carafate) 1 gm PO 1HR_ACHS [facility] Last Admin: 05/30/18 06:09 Dose: 1 gm Medical Necessity - Tobacco Use Smoking Status: Current every day smoker Assessment/Plan All Active Problems (Last Reviewed 05/29/18 @ 14:51 by Lui Paul MD) Hypothermia (Acute) Hypokalemia (Acute) Hypovolemic shock (Acute) Chest pain (Acute) Suicidal ideation (Acute) Acute ST segment elevation [place] (Resolved) Shortness of breath (Resolved) Syncope (Resolved) Chest pain (Resolved) STEMI (ST elevation myocardial infarction) (Resolved) Takotsubo cardiomyopathy (Resolved) Takotsubo cardiomyopathy (Resolved) Patient is a 62-year-old lady with multiple comorbidities who called the squad complaining of suicidal ideation patient was found to be unkempt. Transferred to the emergency department where patient was found to be hypotensive and hypothermic with electrolyte abnormalities including acute kidney injury and hypokalemia 1. Shock to combination of hypovolemic shock from severe dehydration as well as septic shock from acute cystitis vision managing ICU with aggressive IV fluid resuscitation as well as pressors with consultation placed to the ad operations specialist. Patient has been seen by Dr. Lopez he is noted recommendations reviewed Case discussed with him as well 2. Hypovolemic shock secondary to severe dehydration from patient's diarrhea. Patient admitted to the intensive care unit currently being resuscitated with IV fluids and later vasopressors this patient did not respond appropriately to IV fluid resuscitation 3. Septic shock from acute cystitis patient is on Zosyn in addition to IV fluids cultures sent plan is to adjust antibiotic therapy based on results of cultures) blood and urine) 4. Hypothermia patient did receive warm saline in the ED with core temperature increasing from 94 on admission to 97 at the time of admission 5. Acute kidney injury secondary to severe dehydration from diarrhea being resuscitated with IV fluid function improving 6. Hypokalemia corrected per protocol 7. Hyponatremia secondary to hypovolemic hyponatremia patient is currently being resuscitated with IV fluids with monitoring of electrolyte 8. Severe depression with suicidal ideation. Plan is to obtain consultation from the crisis center once patient condition has stabilized 9. History of coronary artery disease with history of LHC w/PCI, aspiration thrombectomy and FEROZ to mid LAD 04/08/16 10. Multiple sclerosis without acute exacerbation. Continue with home meds 11. Hypertension: Patient blood pressure medications held in view of patient presented with low blood pressure 12. History of A. fib/flutter was previously a systemic anticoagulation currently on none 13. Diabetes mellitus type II ; Home regimen continued also added long acting insulin as well as Accu-Cheks before meals and at bedtime and covered with sliding scale insulin 14. Dyslipidemia-patient is on statin therapy, continued at home dose 15. History of Takotsubo syndrome 16. COPD currently not in exacerbation 17. DVT prophylaxis?Lovenox Microbiology 05/29/18 10:45 Stool C. difficile DNA Amplification - Final 05/29/18 11:25 Mucosa - Nasopharyngeal Influenza Types A,B Direct FA ([facility]) - Final Clinical Impression(s) from Imaging Studies Chest X-Ray 05/29/18 11:00 IMPRESSION: 1. No airspace consolidation or pleural effusion Electronically Signed: Conrad Schwartz MD at 11:16 EST , Service support , Chest X-Ray 05/29/18 15:33 IMPRESSION: Left-sided central venous line present with tip superimposed on the distal SVC. There is no pneumothorax. No acute cardiopulmonary disease process is seen. Electronically Signed: Jesús Copeland MD at 16:35 EST , Service support , Code Visit Inpatient E&M: 18051 Subs Hosp L3
[2018-05-30 09:25] LABS: M R Staph aureus DNA By PCR POSITIVE (Negative); Probe Check PASS
[2018-05-30 11:31] LABS: Bedside Glucose 184 mg/dL (70-110)
[2018-05-30] MEDS: Insulin Lispro 100 UNIT/ML INSULN.PEN SQ ×2 (12:33→17:08)
[2018-05-30] MEDS: TERIFLUNOMIDE 14 MG PO (14:16)
[2018-05-30 16:46] LABS: Bedside Glucose 198 mg/dL (70-110)
[2018-05-30] MEDS: Acetaminophen 325 MG Tablet 650 MG PO (17:07)
[2018-05-30] MEDS: Donepezil HCl 10 MG Tablet 20 MG PO (20:38)
[2018-05-30] MEDS: Pantoprazole Sodium 40 MG Tablet PO (20:38)
[2018-05-30] MEDS: Pramipexole Di-HCl 0.5 MG Tablet PO (20:38)
[2018-05-30] MEDS: RisperiDONE 1 MG Tablet PO (20:38)
[2018-05-30 21:11] LABS: Bedside Glucose 88 mg/dL (70-110)
[2018-05-31] VITALS (54 sets, daily range): BP systolic 91–158; BP diastolic 46–78; PULSE 50–104; RESP 15–24; TEMP 36.6–37.6; O2SAT 94–100
[2018-05-31] MEDS: CHLORHEXIDINE GLUC 2% CLOTH 1 EACH TOWELETTE TOPICAL (04:57)
[2018-05-31] MEDS: Menthol/Lanolin/Calamine/Znox 113 GM Tube 1 APPLIC TOPICAL ×3 (04:58→21:07)
[2018-05-31 05:14] LABS: Hemoglobin 11.1 g/dl (12.0-15.0); Mean Corp Hgb Conc 33.6 g/gl (32-36); Mean Corpuscular Hgb 29.2 pg (27.0-32.0); Mean Corpuscular Volume 86.8 fL (81-99); Mean Platelet Vol. 8.9 fl (6.2-12.0); Platelet Count 183 K/mm3 (150-450); RBC Distribution Width CV 16.2 % (11.6-14.6); RBC Distribution Width SD 51.6 fl (35.1-43.9); White Blood Count 7.4 K/mm3 (4.4-11.0)
[2018-05-31 05:17] LABS: Scan Indicated on CBC? Y/N NO
[2018-05-31 05:22] LABS: Anion Gap 10 (5-15); BUN 16 mg/dL (7-18); BUN/Creat Ratio 16.6 RATIO (10-20); Calcium,Total 8.5 mg/dL (8.5-10.1); Chloride 113 mmol/L (98-107); Creatinine, Serum 0.96 mg/dL (0.55-1.02); EST Glomerular Filtration Rate 62 mL/min (>60); Est Glom Filt Rate - Afr Amer 75 mL/min (>60); Estimated Creatinine Clearance 53.97 ml/min; Glucose 103 mg/dL (74-106); Potassium 3.1 mmol/L (3.5-5.1); Sodium Level 139 mmol/L (136-145)
[2018-05-31] MEDS: Piperacil/Tazobactam 3.375 GM/50 ML ML IV (05:22)
[2018-05-31] MEDS: Sucralfate 1 GM Tablet PO ×4 (06:08→21:07)
--- NOTE | 2018-05-31 07:02 | PCM.PN.INT ---
Subjective: Patient did okay overnight. Patient reports subjective improvement in overall condition. Patient has remained on room air and fever curve appears to be improving. Nursing is reporting improved urine output with decreased clouding. Patient has remained on Levophed to maintain adequate blood pressures. No significant ectopy was noted overnight. General: Alert, Cooperative, No apparent distress, - - Appears older than stated age. Speaking in full sentences. HEENT: Atraumatic, PERRLA, EOMI, Normocephalic, - - Slight scleral injection without icterus Oral: Moist Mucosa, No Gingival or Mucosal Lesions/ Ulcerations Neck: Supple, No Nodes, Trachea Midline, - - Left IJ is clean, dry and intact. Lungs: No rhonchi, No wheeze, No rales, Diminished, - - Fair effort. Symmetric expansion. Cardiovascular: Normal S1, Normal S2, No murmurs, Bradycardic, No rub noted, No Gallop Abdomen: Bowel Sounds Present, Soft, Non Tender, Non-Distended Extremities: No clubbing, No cyanosis, No edema, - - Great toe amputation noted Skin: No rashes, No breakdown Musculoskeletal: No Tenderness to Palpation of Joints or Extremities Lymphatic: No Cervical, Supraclavicular, or Inguinal Adenopathy Neurological: Cranial nerves II-XII grossly intact, Neuro grossly intact Psych/Mental Status: Flat Affect, Depressed Vital Signs Temp Pulse Resp BP Pulse Ox 36.7 C 52 L 17 110/61 98 05/31/18 06:00 05/31/18 06:00 05/31/18 06:00 05/31/18 06:00 05/31/18 06:00 Oxygen Delivery Method Room Air Weight: 70.9 kg Body Mass Index (BMI) 23.2 Finger Stick Blood Glucose 151 Intake and Output for Last 24 Hours 05/29/18 05/30/18 05/31/18 23:59 23:59 23:59 Intake Total 2697.3 / 2697.3 5038.8 / 5038.8 1064.4 / 1064.4 Output Total 800 / 800 1500 / 1500 550 / 550 Balance 1897.3 / 1897.3 3538.8 / 3538.8 514.4 / 514.4 Labs (Last 48 Hours) 05/29/18 05/29/18 05/29/18 10:45 10:45 10:45 WBC 11.3 H RBC 4.61 Hgb 13.7 Hct 39.4 MCV 85.5 MCH 29.7 MCHC 34.8 RDW 15.9 H RDW Differential 49.2 H Plt Count 221 MPV 9.4 Immature Gran % (Auto) 0.300 Neut % (Auto) 84.8 H Lymph % (Auto) 5.8 L Dodge % (Auto) 8.6 Eos % (Auto) 0.4 Baso % (Auto) 0.1 Absolute Neuts (auto) 9.6 H Absolute Lymphs (auto) 0.66 L Total Counted Not Reportable PT 13.3 INR 1.0 APTT 23.7 L Sodium Potassium Chloride Carbon Dioxide Anion Gap BUN Creatinine Estim Creat Clear Calc Est GFR (MDRD) Af Amer Est GFR (MDRD) Non-Af BUN/Creatinine Ratio Glucose Lactic Acid Calcium Magnesium Total Bilirubin AST ALT Alkaline Phosphatase Total Creatine Kinase Troponin I Total Protein Albumin Globulin Albumin/Globulin Ratio TSH Urine Color Urine Clarity Urine pH Ur Specific [place] Urine Protein Urine Glucose (UA) Urine Ketones Urine Occult Blood Urine Nitrite Urine Bilirubin Urine Urobilinogen Ur Leukocyte Esterase Urine RBC Urine WBC Ur Squamous Epith Cells Urine Bacteria Urine Mucus Salicylates Urine Opiates Screen Urine Methadone Screen Acetaminophen Ur Barbiturates Screen Ur Phencyclidine Scrn Ur Amphetamines Screen U Methamphetamin-MDMA U Benzodiazepines Scrn Urine Cocaine Screen U Cannabinoids Screen Ur Drug Screen Comment Ethyl Alcohol 8.0 MRSA (PCR) POC Glucose 05/29/18 05/29/18 05/29/18 10:45 10:45 10:45 WBC RBC Hgb Hct MCV MCH MCHC RDW RDW Differential Plt Count MPV Immature Gran % (Auto) Neut % (Auto) Lymph % (Auto) Dodge % (Auto) Eos % (Auto) Baso % (Auto) Absolute Neuts (auto) Absolute Lymphs (auto) Total Counted PT INR APTT Sodium 130 L Potassium 3.0 L Chloride 94 L Carbon Dioxide 22.0 Anion Gap 14 BUN 35 H Creatinine 3.48 H Estim Creat Clear Calc 14.89 Est GFR (MDRD) Af Amer 17 L Est GFR (MDRD) Non-Af 14 L BUN/Creatinine Ratio 10.1 Glucose 173 H Lactic Acid 1.4 Calcium 9.3 Magnesium Total Bilirubin 0.50 AST 47 H ALT 26 Alkaline Phosphatase 105 Total Creatine Kinase Troponin I < 0.015 Total Protein 6.3 L Albumin 2.6 L Globulin 3.7 Albumin/Globulin Ratio 0.7 L TSH Urine Color Urine Clarity Urine pH Ur Specific [place] Urine Protein Urine Glucose (UA) Urine Ketones Urine Occult Blood Urine Nitrite Urine Bilirubin Urine Urobilinogen Ur Leukocyte Esterase Urine RBC Urine WBC Ur Squamous Epith Cells Urine Bacteria Urine Mucus Salicylates 14.6 Urine Opiates Screen Urine Methadone Screen Acetaminophen < 2.0 L Ur Barbiturates Screen Ur Phencyclidine Scrn Ur Amphetamines Screen U Methamphetamin-MDMA U Benzodiazepines Scrn Urine Cocaine Screen U Cannabinoids Screen Ur Drug Screen Comment Ethyl Alcohol MRSA (PCR) POC Glucose 05/29/18 05/29/18 05/29/18 10:50 10:50 11:26 WBC RBC Hgb Hct MCV MCH MCHC RDW RDW Differential Plt Count MPV Immature Gran % (Auto) Neut % (Auto) Lymph % (Auto) Dodge % (Auto) Eos % (Auto) Baso % (Auto) Absolute Neuts (auto) Absolute Lymphs (auto) Total Counted PT INR APTT Sodium Potassium Chloride Carbon Dioxide Anion Gap BUN Creatinine Estim Creat Clear Calc Est GFR (MDRD) Af Amer Est GFR (MDRD) Non-Af BUN/Creatinine Ratio Glucose Lactic Acid Calcium Magnesium 2.3 Total Bilirubin AST ALT Alkaline Phosphatase Total Creatine Kinase 649 H Troponin I Total Protein Albumin Globulin Albumin/Globulin Ratio TSH 0.49 Urine Color Urine Clarity Urine pH Ur Specific [place] Urine Protein Urine Glucose (UA) Urine Ketones Urine Occult Blood Urine Nitrite Urine Bilirubin Urine Urobilinogen Ur Leukocyte Esterase Urine RBC Urine WBC Ur Squamous Epith Cells Urine Bacteria Urine Mucus Salicylates Urine Opiates Screen NEGATIVE Urine Methadone Screen NEGATIVE Acetaminophen Ur Barbiturates Screen NEGATIVE Ur Phencyclidine Scrn NEGATIVE Ur Amphetamines Screen NEGATIVE U Methamphetamin-MDMA NEGATIVE U Benzodiazepines Scrn NEGATIVE Urine Cocaine Screen NEGATIVE U Cannabinoids Screen NEGATIVE Ur Drug Screen Comment Ethyl Alcohol MRSA (PCR) POC Glucose 05/29/18 05/29/18 05/29/18 11:26 19:55 21:23 WBC RBC Hgb Hct MCV MCH MCHC RDW RDW Differential Plt Count MPV Immature Gran % (Auto) Neut % (Auto) Lymph % (Auto) Dodge % (Auto) Eos % (Auto) Baso % (Auto) Absolute Neuts (auto) Absolute Lymphs (auto) Total Counted PT INR APTT Sodium Potassium Chloride Carbon Dioxide Anion Gap BUN Creatinine Estim Creat Clear Calc Est GFR (MDRD) Af Amer Est GFR (MDRD) Non-Af BUN/Creatinine Ratio Glucose Lactic Acid Calcium Magnesium Total Bilirubin AST ALT Alkaline Phosphatase Total Creatine Kinase Troponin I 0.027 Total Protein Albumin Globulin Albumin/Globulin Ratio TSH Urine Color Yellow Urine Clarity Cloudy Urine pH 5.0 Ur Specific [place] 1.015 Urine Protein 30 H Urine Glucose (UA) Normal Urine Ketones 5 H Urine Occult Blood 50 H Urine Nitrite Negative Urine Bilirubin 3 H Urine Urobilinogen 4 H Ur Leukocyte Esterase 500 H Urine RBC 0 SEEN Urine WBC 5-10 SEEN Ur Squamous Epith Cells 5-10 SEEN Urine Bacteria 3+ Urine Mucus 0 SEEN Salicylates Urine Opiates Screen Urine Methadone Screen Acetaminophen Ur Barbiturates Screen Ur Phencyclidine Scrn Ur Amphetamines Screen U Methamphetamin-MDMA U Benzodiazepines Scrn Urine Cocaine Screen U Cannabinoids Screen Ur Drug Screen Comment Ethyl Alcohol MRSA (PCR) POC Glucose 179 H 05/29/18 05/30/18 05/30/18 22:40 01:35 05:20 WBC RBC Hgb Hct MCV MCH MCHC RDW RDW Differential Plt Count MPV Immature Gran % (Auto) Neut % (Auto) Lymph % (Auto) Dodge % (Auto) Eos % (Auto) Baso % (Auto) Absolute Neuts (auto) Absolute Lymphs (auto) Total Counted PT INR APTT Sodium 138 Potassium 3.1 L Chloride 112 H Carbon Dioxide 16.0 L Anion Gap 10 BUN 24 H Creatinine 1.48 H Estim Creat Clear Calc 35.01 Est GFR (MDRD) Af Amer 46 L Est GFR (MDRD) Non-Af 38 L BUN/Creatinine Ratio 16.2 Glucose 99 Lactic Acid Calcium 7.9 L Magnesium 2.0 Total Bilirubin AST ALT Alkaline Phosphatase Total Creatine Kinase Troponin I 0.024 0.025 Total Protein Albumin Globulin Albumin/Globulin Ratio TSH Urine Color Urine Clarity Urine pH Ur Specific [place] Urine Protein Urine Glucose (UA) Urine Ketones Urine Occult Blood Urine Nitrite Urine Bilirubin Urine Urobilinogen Ur Leukocyte Esterase Urine RBC Urine WBC Ur Squamous Epith Cells Urine Bacteria Urine Mucus Salicylates Urine Opiates Screen Urine Methadone Screen Acetaminophen Ur Barbiturates Screen Ur Phencyclidine Scrn Ur Amphetamines Screen U Methamphetamin-MDMA U Benzodiazepines Scrn Urine Cocaine Screen U Cannabinoids Screen Ur Drug Screen Comment Ethyl Alcohol MRSA (PCR) POC Glucose 02/03/19 02/03/19 02/03/19 05:20 06:49 08:20 WBC 8.0 RBC 3.90 L Hgb 11.5 L Hct 33.6 L MCV 86.2 MCH 29.5 MCHC 34.2 RDW 15.8 H RDW Differential 49.9 H Plt Count 190 MPV 8.7 Immature Gran % (Auto) Neut % (Auto) Lymph % (Auto) Dodge % (Auto) Eos % (Auto) Baso % (Auto) Absolute Neuts (auto) Absolute Lymphs (auto) Total Counted PT INR APTT Sodium Potassium Chloride Carbon Dioxide Anion Gap BUN Creatinine Estim Creat Clear Calc Est GFR (MDRD) Af Amer Est GFR (MDRD) Non-Af BUN/Creatinine Ratio Glucose Lactic Acid Calcium Magnesium Total Bilirubin AST ALT Alkaline Phosphatase Total Creatine Kinase Troponin I Total Protein Albumin Globulin Albumin/Globulin Ratio TSH Urine Color Urine Clarity Urine pH Ur Specific [place] Urine Protein Urine Glucose (UA) Urine Ketones Urine Occult Blood Urine Nitrite Urine Bilirubin Urine Urobilinogen Ur Leukocyte Esterase Urine RBC Urine WBC Ur Squamous Epith Cells Urine Bacteria Urine Mucus Salicylates Urine Opiates Screen Urine Methadone Screen Acetaminophen Ur Barbiturates Screen Ur Phencyclidine Scrn Ur Amphetamines Screen U Methamphetamin-MDMA U Benzodiazepines Scrn Urine Cocaine Screen U Cannabinoids Screen Ur Drug Screen Comment Ethyl Alcohol MRSA (PCR) POSITIVE H POC Glucose 105 05/30/18 05/30/18 05/30/18 11:16 16:38 21:01 WBC RBC Hgb Hct MCV MCH MCHC RDW RDW Differential Plt Count MPV Immature Gran % (Auto) Neut % (Auto) Lymph % (Auto) Dodge % (Auto) Eos % (Auto) Baso % (Auto) Absolute Neuts (auto) Absolute Lymphs (auto) Total Counted PT INR APTT Sodium Potassium Chloride Carbon Dioxide Anion Gap BUN Creatinine Estim Creat Clear Calc Est GFR (MDRD) Af Amer Est GFR (MDRD) Non-Af BUN/Creatinine Ratio Glucose Lactic Acid Calcium Magnesium Total Bilirubin AST ALT Alkaline Phosphatase Total Creatine Kinase Troponin I Total Protein Albumin Globulin Albumin/Globulin Ratio TSH Urine Color Urine Clarity Urine pH Ur Specific [place] Urine Protein Urine Glucose (UA) Urine Ketones Urine Occult Blood Urine Nitrite Urine Bilirubin Urine Urobilinogen Ur Leukocyte Esterase Urine RBC Urine WBC Ur Squamous Epith Cells Urine Bacteria Urine Mucus Salicylates Urine Opiates Screen Urine Methadone Screen Acetaminophen Ur Barbiturates Screen Ur Phencyclidine Scrn Ur Amphetamines Screen U Methamphetamin-MDMA U Benzodiazepines Scrn Urine Cocaine Screen U Cannabinoids Screen Ur Drug Screen Comment Ethyl Alcohol MRSA (PCR) POC Glucose 184 H 198 H 88 05/31/18 05/31/18 04:55 04:55 WBC 7.4 RBC 3.80 L Hgb 11.1 L Hct 33.0 L MCV 86.8 MCH 29.2 MCHC 33.6 RDW 16.2 H RDW Differential 51.6 H Plt Count 183 MPV 8.9 Immature Gran % (Auto) Neut % (Auto) Lymph % (Auto) Dodge % (Auto) Eos % (Auto) Baso % (Auto) Absolute Neuts (auto) Absolute Lymphs (auto) Total Counted PT INR APTT Sodium 139 Potassium 3.1 L Chloride 113 H Carbon Dioxide 16.0 L Anion Gap 10 BUN 16 Creatinine 0.96 Estim Creat Clear Calc 53.97 Est GFR (MDRD) Af Amer 75 Est GFR (MDRD) Non-Af 62 BUN/Creatinine Ratio 16.6 Glucose 103 Lactic Acid Calcium 8.5 Magnesium Total Bilirubin AST ALT Alkaline Phosphatase Total Creatine Kinase Troponin I Total Protein Albumin Globulin Albumin/Globulin Ratio TSH Urine Color Urine Clarity Urine pH Ur Specific [place] Urine Protein Urine Glucose (UA) Urine Ketones Urine Occult Blood Urine Nitrite Urine Bilirubin Urine Urobilinogen Ur Leukocyte Esterase Urine RBC Urine WBC Ur Squamous Epith Cells Urine Bacteria Urine Mucus Salicylates Urine Opiates Screen Urine Methadone Screen Acetaminophen Ur Barbiturates Screen Ur Phencyclidine Scrn Ur Amphetamines Screen U Methamphetamin-MDMA U Benzodiazepines Scrn Urine Cocaine Screen U Cannabinoids Screen Ur Drug Screen Comment Ethyl Alcohol MRSA (PCR) POC Glucose Microbiology 05/29/18 11:26 Urine Catheter - Rodney Urine Culture - Preliminary Presumptive E. coli 05/29/18 10:54 Stool Enteric Bacteriology - Final 05/29/18 10:45 Stool C. difficile DNA Amplification - Final 05/29/18 11:25 Mucosa - Nasopharyngeal Influenza Types A,B Direct FA (ANTONIA) - Final Medical Necessity - Tobacco Use Smoking Status: Current every day smoker Assessment/Plan All Active Problems (Last Reviewed 05/29/18 @ 14:51 by Lui Paul MD) Hypothermia (Acute) Hypokalemia (Acute) Hypovolemic shock (Acute) Chest pain (Acute) Suicidal ideation (Acute) Acute ST segment elevation NC (Resolved) Shortness of breath (Resolved) Syncope (Resolved) Chest pain (Resolved) STEMI (ST elevation myocardial infarction) (Resolved) Takotsubo cardiomyopathy (Resolved) Takotsubo cardiomyopathy (Resolved) RECOMMENDATIONS: 1. Continue LR replacement fluids with potassium supplementation. 2. Continue current antibiotics until sensitivities are known 3. Provide additional potassium supplementation. 4. Continue Lovenox for DVT prophylaxis 5. Crisis evaluation once medically stabilized IMPRESSIONS: 1. Septic shock secondary to E. coli UTI Patient is currently growing E. coli in the urine. This clinical picture. Patient was initiated on Zosyn therapy yesterday. Await sensitivities, but may be able to narrow spectrum later today. Continue to wean Levophed as tolerated. Patient does have a central line in place. Patient has had significant stooling, but C. difficile was negative. 2. Acute kidney injury/NAGMA RESOLVED > likely secondary to septic shock and hypovolemia. Patient has responded well to fluid resuscitation. 3. Hypokalemia Aggressive electrolyte repletion is currently underway. Recheck levels in the morning. 4. Suicidal ideations/history of severe depression The patient reportedly had suicidal ideations upon contact with EMS. She is currently pink slipped. Recommend crisis evaluation, once medically stabilized. 5. Obstructive sleep apnea Patient has not tolerated noninvasive therapy during this hospitalization. The patient completed a sleep study in 2017, for which it was recommended that she be placed on CPAP with a pressure support of 14 cm of water. 6. Chronic systolic dysfunction/history of coronary artery disease/history of atrial fibrillation/flutter Continue current medical management, with the exception of antihypertensive medications. Recommend judicious use of supplemental IV fluids. 7. Personal history of MS/hypertension/diabetes/hyperlipidemia/chronic pain syndrome Complicates care, management, recovery and prognosis. Continue to hold home antihypertensives. TIME: 35 minutes of critical care time, independent of procedures, was spent addressing the patient's septic shock, electrolyte disturbances, suicidal ideations, review of all data and collaboration with the care team. (5:55 AM to 7 AM) Code Visit [id number]: [id number] Critical care first hour
[2018-05-31] MEDS: Aspirin E.C. 81 MG Tablet PO (08:33)
[2018-05-31 08:36] LABS: Bedside Glucose 78 mg/dL (70-110)
--- NOTE | 2018-05-31 09:52 | PCM.PN.HOSP ---
Patient Problems: Active and Suspected Problems (Last Reviewed 05/29/18 @ 14:51 by Lui Paul MD) Hypothermia (Acute) Hypokalemia (Acute) Hypovolemic shock (Acute) Subjective: Doing well today feels better, still on levo fed, asked if she had thoughts of hurting herself and she said yes. Vitals/I&O's: Vital Signs Temp Pulse Resp BP Pulse Ox 98.7 F 76 24 H 126/61 H 98 05/31/18 08:00 05/31/18 08:00 05/31/18 08:00 05/31/18 08:00 05/31/18 09:23 Oxygen Delivery Method Room Air Weight: 156 lb 4.924 oz Body Mass Index (BMI) 23.2 Finger Stick Blood Glucose 151 Intake and Output for Last 24 Hours 05/29/18 05/30/18 05/31/18 23:59 23:59 23:59 Intake Total 2697.3 / 2697.3 5038.8 / 5038.8 1064.4 / 1064.4 Output Total 800 / 800 1500 / 1500 550 / 550 Balance 1897.3 / 1897.3 3538.8 / 3538.8 514.4 / 514.4 General: Alert, Oriented x3, Cooperative, No apparent distress HEENT: Atraumatic, EOMI, Normocephalic Neck: Supple, No JVD, Trachea Midline Lungs: Clear to auscultation, Normal air movement, No rhonchi, No wheeze, No rales, Diminished Cardiovascular: Regular rate, Regular Rhythm, Normal S1, Normal S2, No murmurs Abdomen: Soft, Non Tender, Non-Distended, No Hepato-splenomegaly Extremities: No edema, Capillary Refill Less than 3 Seconds Skin: No rashes, No breakdown Neurological: Neuro grossly intact, Sensory exam intact to light touch and pain Psych/Mental Status: Flat Affect, Suicidal Microbiology Past 72 Hours 05/29/18 11:26 Urine Catheter - Rodney Urine Culture - Final Presumptive E. coli 05/29/18 10:54 Stool Enteric Bacteriology - Final 05/29/18 10:45 Stool C. difficile DNA Amplification - Final 05/29/18 11:25 Mucosa - Nasopharyngeal Influenza Types A,B Direct FA (ANTONIA) - Final Laboratory Results 05/30/18 11:16: POC Glucose 184 H 05/30/18 16:38: POC Glucose 198 H 05/30/18 21:01: POC Glucose 88 05/31/18 04:55: Sodium 139, Potassium 3.1 L, Chloride 113 H, Carbon Dioxide 16.0 L, Anion Gap 10, BUN 16, Creatinine 0.96, Estim Creat Clear Calc 53.97, Est GFR (MDRD) Af Amer 75, Est GFR (MDRD) Non-Af 62, BUN/Creatinine Ratio 16.6, Glucose 103, Calcium 8.5 05/31/18 04:55: WBC 7.4, RBC 3.80 L, Hgb 11.1 L, Hct 33.0 L, MCV 86.8, MCH 29.2, MCHC 33.6, RDW 16.2 H, RDW Differential 51.6 H, Plt Count 183, MPV 8.9 05/31/18 08:27: POC Glucose 78 Current Medications Acetaminophen (Tylenol) 650 mg PO Q6H PRN PRN PRN Reason: Mild Pain (1-3)/Temp > 100.7 F Last Admin: 05/30/18 17:07 Dose: 650 mg Al Hydroxide/Mg Hydroxide (Mylanta Ii) 30 ml PO Q6H PRN PRN PRN Reason: Gastric burning Albuterol Sulfate (Ventolin Aerosols) 2.5 mg INHALATION Q4H PRN PRN Reason: SOB &/OR WHEEZING Aspirin (Ecotrin) 81 mg PO DAILY@0800 [facility] Last Admin: 05/31/18 08:33 Dose: 81 mg Bisacodyl (Dulcolax) 5 mg PO DAILY PRN PRN PRN Reason: Constipation Calamine/Phenol (Calmoseptine Ointment) 1 applic TOPICAL TID [facility]; Protocol Last Admin: 05/31/18 04:58 Dose: 1 applicatio Chlorhexidine Gluconate () 1 each TOPICAL DAILY [facility] Last Admin: 05/31/18 04:57 Dose: 1 each Cholecalciferol (Vitamin D) 2,000 unit PO DAILYCM [facility] Last Admin: 05/31/18 08:37 Dose: 2,000 unit Clopidogrel Bisulfate (Plavix) 75 mg PO DAILY [facility] Last Admin: 05/30/18 08:32 Dose: 75 mg Dextrose (D50w Syringe) 0 gm IV X1 PRN; Protocol PRN Reason: Hypoglycemia Donepezil HCl (Aricept) 20 mg PO QHS [facility] Last Admin: 05/30/18 20:38 Dose: 20 mg Enoxaparin Sodium (Lovenox) 30 mg SC DAILY@1000 [facility] Last Admin: 05/30/18 08:30 Dose: 30 mg Glucagon () 1 mg IM .X1 PRN PRN Reason: Hypoglycemia Hydroxyzine Pamoate (Vistaril Pamoate Capsule) 50 mg PO TID PRN PRN PRN Reason: ITCHING Potassium Chloride 20 meq/ (Lactated Ringer's) 1,010 mls @ 100 mls/hr IV .Q10H6M [facility] Last Admin: 05/31/18 04:57 Dose: 100 mls/hr Norepinephrine Bitartrate 8 mg (/ Dextrose) 258 mls @ 9.68 mls/hr IV .[id number] [facility]; Protocol Last Admin: 05/30/18 20:40 Dose: 9.68 mls/hr Ceftriaxone Sodium (Rocephin) 1 gm in 50 mls @ 100 mls/hr IV Q24 [facility] Insulin Glargine (Lantus (Bkc)) 18 units SC DAILY [facility] Last Admin: 05/30/18 08:29 Dose: 18 u Insulin Human Lispro (Humalog Kwikpen (Bkc)) 0 unit SQ ACHS [facility]; Protocol Last Admin: 05/31/18 08:32 Dose: Not Given Magnesium Hydroxide (Milk Of Magnesia) 30 ml PO DAILY PRN PRN Reason: Constipation Methadone HCl () 5 mg PO QHS [facility] Last Admin: 05/30/18 20:40 Dose: 5 mg Modafinil (Provigil) 200 mg PO DAILY [facility] Last Admin: 05/30/18 08:37 Dose: 200 mg Nicotine (Nicoderm Cq (Pbkc)) 21 mg TRANSDERM. DAILY [facility] Last Admin: 05/30/18 08:31 Dose: 21 mg Oxycodone HCl (Oxyir) 5 - 10 mg PO Q4H PRN PRN PRN Reason: MOD-SEVERE PAIN (4-10/10) Pantoprazole Sodium (Protonix) 40 mg PO QHS [facility] Last Admin: 05/30/18 20:38 Dose: 40 mg Potassium [facility] Last Admin: 05/31/18 08:33 Dose: 20 meq Potassium Chloride (K-Dur) 40 meq PO X1 ONE Stop: 05/31/18 12:01 Pramipexole Dihydrochloride (Mirapex) 0.5 mg PO DAILY@2100 [facility] Last Admin: 05/30/18 20:38 Dose: 0.5 mg Promethazine HCl (Phenergan Tablet) 25 mg PO 4X/DAY PRN PRN Reason: NAUSEA/VOMITING Risperidone (Risperdal) 1 mg PO QHS [facility] Last Admin: 05/30/18 20:38 Dose: 1 mg Sodium Chloride () 5 - 15 ml IV UD PRN PRN Reason: SALINE FLUSH Sodium Chloride () 10 - 40 ml IV UD PRN PRN Reason: MULTILUMEN/HICMAN CATH FLUSH Last Admin: 05/31/18 05:09 Dose: 20 ml Sucralfate (Carafate) 1 gm PO 1HR_ACHS [facility] Last Admin: 05/31/18 06:08 Dose: 1 gm Medical Necessity - Tobacco Use Smoking Status: Current every day smoker Assessment/Plan All Active Problems (Last Reviewed 05/29/18 @ 14:51 by Lui Paul MD) Hypothermia (Acute) Hypokalemia (Acute) Hypovolemic shock (Acute) Chest pain (Acute) Suicidal ideation (Acute) Acute ST segment elevation ID (Resolved) Shortness of breath (Resolved) Syncope (Resolved) Chest pain (Resolved) STEMI (ST elevation myocardial infarction) (Resolved) Takotsubo cardiomyopathy (Resolved) Takotsubo cardiomyopathy (Resolved) 1. Septic shock secondary to UTI from E. coli/AK I -She does appear to be improving, still on levo fed though that is being weaned -She was started on Zosyn our sensitivities have come back and was switched to Rocephin -Continue with IV fluids -Her acute kidney injury has resolved with improvement in her sepsis and IV fluids 2. Depression with suicidal ideation -She is on risperidone at home -Once she is medically stable and out of the ICU will consult crisis 3. Coronary artery disease status post stent/A. fib/hypertension/chronic systolic CHF/HLD -We will continue to hold her blood pressure medication given the fact that she is still necessitating levo fed -She had been on systemic anticoagulation though she is not currently on any for her A. fib -Continue with aspirin/Plavix -Hold her Lasix given her necessity for IV fluid resuscitation and Levophed 4. MS without acute exacerbation/RLS/chronic pain -Continue with Aubagio and Aricept -Continue with Mirapex -Continue with methadone 5. DM 2 -Tinea with her home insulin regimen of Lantus 18 units daily as well as a sliding scale insulin -Hold glimepiride 6. BRYAN/COPD -She does not have a CPAP though she had a sleep study in 2017 that supported its use -With Provigil DVT: Lovenox Code Visit Inpatient E&M: [id number] Subs Hosp L2
[2018-05-31] MEDS: TERIFLUNOMIDE 14 MG PO (10:12)
[2018-05-31] MEDS: Enoxaparin 30 MG/0.3 ML Syringe SC (10:13)
[2018-05-31] MEDS: Clopidogrel Bisulfate 75 MG Tablet PO (10:14)
--- NOTE | 2018-05-31 10:15 | PN_ITS ---
Patient Problems: Active and Suspected Problems (Last Reviewed 05/29/18 @ 14:51 by Lui Paul MD) Hypothermia (Acute) Hypokalemia (Acute) Hypovolemic shock (Acute) Subjective: Doing well today feels better, still on levo fed, asked if she had thoughts of hurting herself and she said yes. Vitals/I&O's: Vital Signs Temp Pulse Resp BP Pulse Ox 98.7 F 76 24 H 126/61 H 98 05/31/18 08:00 05/31/18 08:00 05/31/18 08:00 05/31/18 08:00 05/31/18 09:23 Oxygen Delivery Method Room Air Weight: 156 lb 4.924 oz Body Mass Index (BMI) 23.2 Finger Stick Blood Glucose 151 Intake and Output for Last 24 Hours 05/29/18 05/30/18 05/31/18 23:59 23:59 23:59 Intake Total 2697.3 / 2697.3 5038.8 / 5038.8 1064.4 / 1064.4 Output Total 800 / 800 1500 / 1500 550 / 550 Balance 1897.3 / 1897.3 3538.8 / 3538.8 514.4 / 514.4 General: Alert, Oriented x3, Cooperative, No apparent distress HEENT: Atraumatic, EOMI, Normocephalic Neck: Supple, No JVD, Trachea Midline Lungs: Clear to auscultation, Normal air movement, No rhonchi, No wheeze, No rales, Diminished Cardiovascular: Regular rate, Regular Rhythm, Normal S1, Normal S2, No murmurs Abdomen: Soft, Non Tender, Non-Distended, No Hepato-splenomegaly Extremities: No edema, Capillary Refill Less than 3 Seconds Skin: No rashes, No breakdown Neurological: Neuro grossly intact, Sensory exam intact to light touch and pain Psych/Mental Status: Flat Affect, Suicidal Microbiology Past 72 Hours 05/29/18 11:26 Urine Catheter - Rodney Urine Culture - Final Presumptive E. coli 05/29/18 10:54 Stool Enteric Bacteriology - Final 05/29/18 10:45 Stool C. difficile DNA Amplification - Final 05/29/18 11:25 Mucosa - Nasopharyngeal Influenza Types A,B Direct FA (ANTONIA) - Final Laboratory Results 05/30/18 11:16: POC Glucose 184 H 05/30/18 16:38: POC Glucose 198 H 05/30/18 21:01: POC Glucose 88 05/31/18 04:55: Sodium 139, Potassium 3.1 L, Chloride 113 H, Carbon Dioxide 16.0 L, Anion Gap 10, BUN 16, Creatinine 0.96, Estim Creat Clear Calc 53.97, Est GFR (MDRD) Af Amer 75, Est GFR (MDRD) Non-Af 62, BUN/Creatinine Ratio 16.6, Glucose 103, Calcium 8.5 05/31/18 04:55: WBC 7.4, RBC 3.80 L, Hgb 11.1 L, Hct 33.0 L, MCV 86.8, MCH 29.2, MCHC 33.6, RDW 16.2 H, RDW Differential 51.6 H, Plt Count 183, MPV 8.9 05/31/18 08:27: POC Glucose 78 Current Medications Acetaminophen (Tylenol) 650 mg PO Q6H PRN PRN PRN Reason: Mild Pain (1-3)/Temp > 100.7 F Last Admin: 05/30/18 17:07 Dose: 650 mg Al Hydroxide/Mg Hydroxide (Mylanta Ii) 30 ml PO Q6H PRN PRN PRN Reason: Gastric burning Albuterol Sulfate (Ventolin Aerosols) 2.5 mg INHALATION Q4H PRN PRN Reason: SOB &/OR WHEEZING Aspirin (Ecotrin) 81 mg PO DAILY@0800 [facility] Last Admin: 05/31/18 08:33 Dose: 81 mg Bisacodyl (Dulcolax) 5 mg PO DAILY PRN PRN PRN Reason: Constipation Calamine/Phenol (Calmoseptine Ointment) 1 applic TOPICAL TID [facility]; Protocol Last Admin: 05/31/18 04:58 Dose: 1 applicatio Chlorhexidine Gluconate () 1 each TOPICAL DAILY [facility] Last Admin: 05/31/18 04:57 Dose: 1 each Cholecalciferol (Vitamin D) 2,000 unit PO DAILYCM [facility] Last Admin: 05/31/18 08:37 Dose: 2,000 unit Clopidogrel Bisulfate (Plavix) 75 mg PO DAILY [facility] Last Admin: 05/30/18 08:32 Dose: 75 mg Dextrose (D50w Syringe) 0 gm IV X1 PRN; Protocol PRN Reason: Hypoglycemia Donepezil HCl (Aricept) 20 mg PO QHS [facility] Last Admin: 05/30/18 20:38 Dose: 20 mg Enoxaparin Sodium (Lovenox) 30 mg SC DAILY@1000 [facility] Last Admin: 05/30/18 08:30 Dose: 30 mg Glucagon () 1 mg IM .X1 PRN PRN Reason: Hypoglycemia Hydroxyzine Pamoate (Vistaril Pamoate Capsule) 50 mg PO TID PRN PRN PRN Reason: ITCHING Potassium Chloride 20 meq/ (Lactated Ringer's) 1,010 mls @ 100 mls/hr IV .Q10H6M [facility] Last Admin: 05/31/18 04:57 Dose: 100 mls/hr Norepinephrine Bitartrate 8 mg (/ Dextrose) 258 mls @ 9.68 mls/hr IV .[id number] [facility]; Protocol Last Admin: 05/30/18 20:40 Dose: 9.68 mls/hr Ceftriaxone Sodium (Rocephin) 1 gm in 50 mls @ 100 mls/hr IV Q24 [facility] Insulin Glargine (Lantus (Bkc)) 18 units SC DAILY [facility] Last Admin: 05/30/18 08:29 Dose: 18 u Insulin Human Lispro (Humalog Kwikpen (Bkc)) 0 unit SQ ACHS [facility]; Protocol Last Admin: 05/31/18 08:32 Dose: Not Given Magnesium Hydroxide (Milk Of Magnesia) 30 ml PO DAILY PRN PRN Reason: Constipation Methadone HCl () 5 mg PO QHS [facility] Last Admin: 05/30/18 20:40 Dose: 5 mg Modafinil (Provigil) 200 mg PO DAILY [facility] Last Admin: 05/30/18 08:37 Dose: 200 mg Nicotine (Nicoderm Cq (Pbkc)) 21 mg TRANSDERM. DAILY [facility] Last Admin: 05/30/18 08:31 Dose: 21 mg Oxycodone HCl (Oxyir) 5 - 10 mg PO Q4H PRN PRN PRN Reason: MOD-SEVERE PAIN (4-10/10) Pantoprazole Sodium (Protonix) 40 mg PO QHS [facility] Last Admin: 05/30/18 20:38 Dose: 40 mg Potassium [facility]) [facility] Last Admin: 05/31/18 08:33 Dose: 20 meq Potassium Chloride (K-Dur) 40 meq PO X1 ONE Stop: 05/31/18 12:01 Pramipexole Dihydrochloride (Mirapex) 0.5 mg PO DAILY@2100 [facility] Last Admin: 05/30/18 20:38 Dose: 0.5 mg Promethazine HCl (Phenergan Tablet) 25 mg PO 4X/DAY PRN PRN Reason: NAUSEA/VOMITING Risperidone (Risperdal) 1 mg PO QHS [facility] Last Admin: 05/30/18 20:38 Dose: 1 mg Sodium Chloride () 5 - 15 ml IV UD PRN PRN Reason: SALINE FLUSH Sodium Chloride () 10 - 40 ml IV UD PRN PRN Reason: MULTILUMEN/HICMAN CATH FLUSH Last Admin: 05/31/18 05:09 Dose: 20 ml Sucralfate (Carafate) 1 gm PO 1HR_ACHS [facility] Last Admin: 05/31/18 06:08 Dose: 1 gm Medical Necessity - Tobacco Use Smoking Status: Current every day smoker Assessment/Plan All Active Problems (Last Reviewed 05/29/18 @ 14:51 by Lui Paul MD) Hypothermia (Acute) Hypokalemia (Acute) Hypovolemic shock (Acute) Chest pain (Acute) Suicidal ideation (Acute) Acute ST segment elevation [place] (Resolved) Shortness of breath (Resolved) Syncope (Resolved) Chest pain (Resolved) STEMI (ST elevation myocardial infarction) (Resolved) Takotsubo cardiomyopathy (Resolved) Takotsubo cardiomyopathy (Resolved) 1. Septic shock secondary to UTI from E. coli/AK I -She does appear to be improving, still on levo fed though that is being weaned -She was started on Zosyn our sensitivities have come back and was switched to Rocephin -Continue with IV fluids -Her acute kidney injury has resolved with improvement in her sepsis and IV fluids 2. Depression with suicidal ideation -She is on risperidone at home -Once she is medically stable and out of the ICU will consult crisis 3. Coronary artery disease status post stent/A. fib/hypertension/chronic systolic CHF/HLD -We will continue to hold her blood pressure medication given the fact that she is still necessitating levo fed -She had been on systemic anticoagulation though she is not currently on any for her A. fib -Continue with aspirin/Plavix -Hold her Lasix given her necessity for IV fluid resuscitation and Levophed 4. MS without acute exacerbation/RLS/chronic pain -Continue with Aubagio and Aricept -Continue with Mirapex -Continue with methadone 5. DM 2 -Tinea with her home insulin regimen of Lantus 18 units daily as well as a sliding scale insulin -Hold glimepiride 6. BRYAN/COPD -She does not have a CPAP though she had a sleep study in 2017 that supported its use -With Provigil DVT: Lovenox Code Visit Inpatient E&M: 83963 Subs Hosp L2
[2018-05-31] MEDS: Ceftriaxone 1 GM/50 ML BAG IV (10:20)
[2018-05-31] MEDS: Modafinil 200 MG Tablet PO (10:20)
[2018-05-31] MEDS: Insulin Lispro 100 UNIT/ML INSULN.PEN SQ ×2 (11:58→17:20)
[2018-05-31 12:16] LABS: Bedside Glucose 182 mg/dL (70-110)
--- NOTE | 2018-05-31 13:12 | CASEMGMT ---
JEAN MARIE RANDHAWA Note/Chart Review. Presentation: pt called EMS complaining of suicidal ideation, reportedly covered in stool and emesis. pink slip on chart. Hypothermic, hypotensive. IV Fluid Resuscitation, admitted to ICU. On Norepi. PCP: Dr. Noble [facility]: [facility] Pres[facility] Coverage: yes SW Consult: yes. Elo COSTELLO notified of pt's presentation, possible Waiver or [employer] services and pink slip. Physician documentation for Depression with suicidal ideation and Limited support for dc planning. DC Plan: JEAN MARIE feng continue to follow/ SW for dc planning. Yancy BARAJAS RN [facility]
--- NOTE | 2018-05-31 14:35 | CASEMGMT ---
Patient has a Healthcare POA and Healthcare LW. Both are on file at [facility]. Her Healthcare POA is her sister, Robina Burns. Rajwinder SANCHEZ MSW
--- NOTE | 2018-05-31 14:53 | CASEMGMT ---
PRAVIN met with patient, introduced self and role at [facility]. Patient had a sitter due to being suicidal. Sesarter stepped out while PRAVIN spoke with patient. Patient was open to talking with PRAVIN. She is still active with [employer] and her outpatient case manager is Gabriella Miller. Patient said she has home health aides from [facility] 3 times a week and [employer]. She is no longer active with [facility]. She goes to [facility]. She sees Charlene Medina for counseling. She sees her weekly. She also sees Dr Renteria for Psychiatry. She just saw her a couple of weeks ago. SW talked with patient about how she feels things have been going at home. She said they have been fine. SW attempted to engage patient in conversation regarding her mental health, mainly her numerous ED visits. She would answer yes or no. She said she doesn't think her meds are working. She said she let Dr Renteria know this information. Crisis to see patient when medically cleared. RN let indy know SW is done and indy went back into room. Rajwinder SANCHEZ MSW
[2018-05-31 19:16] LABS: Bedside Glucose 154 mg/dL (70-110)
[2018-05-31] MEDS: Pramipexole Di-HCl 0.5 MG Tablet PO (21:07)
[2018-05-31] MEDS: RisperiDONE 1 MG Tablet PO (21:07)
[2018-05-31] MEDS: Pantoprazole Sodium 40 MG Tablet PO (21:07)
[2018-05-31] MEDS: Donepezil HCl 10 MG Tablet 20 MG PO (21:07)
[2018-05-31 21:16] LABS: Bedside Glucose 97 mg/dL (70-110)
[2018-06-01] VITALS (19 sets, daily range): BP systolic 91–134; BP diastolic 49–71; PULSE 64–84; RESP 12–23; TEMP 36.2–37.4; O2SAT 96–100
--- NOTE | 2018-06-01 01:50 | NURSING ---
sitter called this RN into room for dried blood noted on right arm. This RN observed site, cleansed with NS and patted dry, skin tear with scab noted to right forearm measuring 1.7cm x 0.3cm, dressing applied to site. Patient is complaining of suicidal thoughts and has been observed picking at skin. Education provided to patient in regards to not scratch/pick at skin, will continue to monitor, sitter remains at bedside.
[2018-06-01 04:33] LABS: Anion Gap 8 (5-15); BUN 10 mg/dL (7-18); BUN/Creat Ratio 17.4 RATIO (10-20); Calcium,Total 8.4 mg/dL (8.5-10.1); Chloride 112 mmol/L (98-107); Creatinine, Serum 0.57 mg/dL (0.55-1.02); EST Glomerular Filtration Rate 113 mL/min (>60); Est Glom Filt Rate - Afr Amer 137 mL/min (>60); Glucose 42 mg/dL (74-106); Potassium 4.1 mmol/L (3.5-5.1); Sodium Level 139 mmol/L (136-145)
--- NOTE | 2018-06-01 04:35 | NURSING ---
notified from lab patient's blood glucose 42 on BMP, finger stick checked with result of blood glucose 38, 4 oz of orange juice given and peanut butter and mya crackers, will recheck in 15 minutes.
[2018-06-01 04:47] LABS: Bedside Glucose 38 mg/dL (70-110)
[2018-06-01] MEDS: Menthol/Lanolin/Calamine/Znox 113 GM Tube 1 APPLIC TOPICAL ×3 (05:01→21:53)
[2018-06-01] MEDS: CHLORHEXIDINE GLUC 2% CLOTH 1 EACH TOWELETTE TOPICAL (05:02)
[2018-06-01] MEDS: 0.9% NaCl Peripheral Flush Adult/Peds IV (05:02)
[2018-06-01 05:16] LABS: Bedside Glucose 83 mg/dL (70-110)
[2018-06-01 06:06] LABS: Bedside Glucose 88 mg/dL (70-110)
[2018-06-01 07:11] LABS: Bedside Glucose 105 mg/dL (70-110)
--- NOTE | 2018-06-01 07:41 | PCM.PN.INT ---
Subjective: Patient did well overnight. Patient is off of Levophed therapy. Patient with no complaints this morning. Nursing did report hypoglycemia on BMP. Patient was able to be corrected using p.o. measures. Patient denies any symptoms at that time. General: Alert, Cooperative, No apparent distress, - - Flat affect. Hirsutism noted. HEENT: Atraumatic, PERRLA, EOMI, Normocephalic, - - No scleral icterus or injection noted. Oral: Moist Mucosa, No Gingival or Mucosal Lesions/ Ulcerations Neck: Supple, No JVD, No Nodes, Trachea Midline Lungs: Clear to auscultation, Normal air movement, No rhonchi, No wheeze, No rales Cardiovascular: Regular rate, Regular Rhythm, Normal S1, Normal S2, No murmurs, No rub noted, No Gallop Abdomen: Bowel Sounds Present, Soft, Non Tender, Non-Distended Extremities: No clubbing, No cyanosis, No edema Skin: - - No significant change compared to previous Musculoskeletal: No Tenderness to Palpation of Joints or Extremities Lymphatic: No Cervical, Supraclavicular, or Inguinal Adenopathy Neurological: Cranial nerves II-XII grossly intact, Neuro grossly intact, Motor Exam 5/5 strength throughout Psych/Mental Status: Flat Affect Vital Signs Temp Pulse Resp BP Pulse Ox 36.8 C 66 18 94/53 L 99 06/01/18 07:00 06/01/18 07:15 06/01/18 07:00 06/01/18 07:00 06/01/18 07:00 Oxygen Delivery Method Room Air Weight: 71.4 kg Body Mass Index (BMI) 23.2 Finger Stick Blood Glucose 151 Intake and Output for Last 24 Hours 05/30/18 05/31/18 06/01/18 23:59 23:59 23:59 Intake Total 5038.8 / 5038.8 3829.4 / 3829.4 881 / 881 Output Total 1500 / 1500 2024 / 2024 425 / 425 Balance 3538.8 / 3538.8 1804.4 / 1804.4 456 / 456 Labs (Last 48 Hours) 05/30/18 05/30/18 05/30/18 08:20 11:16 16:38 WBC RBC Hgb Hct MCV MCH MCHC RDW RDW Differential Plt Count MPV Sodium Potassium Chloride Carbon Dioxide Anion Gap BUN Creatinine Estim Creat Clear Calc Est GFR (MDRD) Af Amer Est GFR (MDRD) Non-Af BUN/Creatinine Ratio Glucose Calcium MRSA (PCR) POSITIVE H POC Glucose 184 H 198 H 05/30/18 05/31/18 05/31/18 21:01 04:55 04:55 WBC 7.4 RBC 3.80 L Hgb 11.1 L Hct 33.0 L MCV 86.8 MCH 29.2 MCHC 33.6 RDW 16.2 H RDW Differential 51.6 H Plt Count 183 MPV 8.9 Sodium 139 Potassium 3.1 L Chloride 113 H Carbon Dioxide 16.0 L Anion Gap 10 BUN 16 Creatinine 0.96 Estim Creat Clear Calc 53.97 Est GFR (MDRD) Af Amer 75 Est GFR (MDRD) Non-Af 62 BUN/Creatinine Ratio 16.6 Glucose 103 Calcium 8.5 MRSA (PCR) POC Glucose 88 05/31/18 05/31/18 05/31/18 08:27 11:56 17:06 WBC RBC Hgb Hct MCV MCH MCHC RDW RDW Differential Plt Count MPV Sodium Potassium Chloride Carbon Dioxide Anion Gap BUN Creatinine Estim Creat Clear Calc Est GFR (MDRD) Af Amer Est GFR (MDRD) Non-Af BUN/Creatinine Ratio Glucose Calcium MRSA (PCR) POC Glucose 78 182 H 154 H 05/31/18 06/01/18 06/01/18 21:05 04:10 04:35 WBC RBC Hgb Hct MCV MCH MCHC RDW RDW Differential Plt Count MPV Sodium 139 Potassium 4.1 Chloride 112 H Carbon Dioxide 19.0 L Anion Gap 8 BUN 10 Creatinine 0.57 Estim Creat Clear Calc 90.90 Est GFR (MDRD) Af Amer 137 Est GFR (MDRD) Non-Af 113 BUN/Creatinine Ratio 17.4 Glucose 42 L* Calcium 8.4 L MRSA (PCR) POC Glucose 97 38 L* 06/01/18 06/01/18 06/01/18 04:56 06:03 07:05 WBC RBC Hgb Hct MCV MCH MCHC RDW RDW Differential Plt Count MPV Sodium Potassium Chloride Carbon Dioxide Anion Gap BUN Creatinine Estim Creat Clear Calc Est GFR (MDRD) Af Amer Est GFR (MDRD) Non-Af BUN/Creatinine Ratio Glucose Calcium MRSA (PCR) POC Glucose 83 88 105 Microbiology 05/29/18 10:50 Blood Culture (Wb) - Right Hand Blood Culture - Preliminary No growth in 48 hours. 05/29/18 10:45 Blood Culture (Wb) - Right Forearm Blood Culture - Preliminary No growth in 48 hours. 05/29/18 11:26 Urine Catheter - Rodney Urine Culture - Final Presumptive E. coli 05/29/18 10:54 Stool Enteric Bacteriology - Final Medical Necessity - Tobacco Use Smoking Status: Current every day smoker Assessment/Plan All Active Problems (Last Reviewed 05/29/18 @ 14:51 by Lui Paul MD) Hypothermia (Acute) Hypokalemia (Acute) Hypovolemic shock (Acute) Chest pain (Acute) Suicidal ideation (Acute) Acute ST segment elevation [place] (Resolved) Shortness of breath (Resolved) Syncope (Resolved) Chest pain (Resolved) STEMI (ST elevation myocardial infarction) (Resolved) Takotsubo cardiomyopathy (Resolved) Takotsubo cardiomyopathy (Resolved) RECOMMENDATIONS: 1. Discontinue IV fluids 2. Possibly transition to p.o. Levaquin 3. Monitor blood sugars through the day 4. Hemodynamically stable on room air. 5. Okay to leave the intensive care unit from my perspective IMPRESSIONS: 1. Septic shock secondary to E. coli UTI Patient is currently growing E. coli in the urine. Patient transitioned to ceftriaxone yesterday. Patient appears to be tolerating this well. Patient possibly can be transition to p.o. medications to complete antibiotic course. 2. Acute kidney injury/NAGMA RESOLVED > likely secondary to septic shock and hypovolemia. Patient has responded well to fluid resuscitation. 3. Hypokalemia Aggressive electrolyte repletion is currently underway. Recheck levels in the morning. 4. Suicidal ideations/history of severe depression The patient reportedly had suicidal ideations upon contact with EMS. She is currently pink slipped. Recommend crisis evaluation, once medically stabilized. 5. Obstructive sleep apnea Patient has not tolerated noninvasive therapy during this hospitalization. The patient completed a sleep study in 2017, for which it was recommended that she be placed on CPAP with a pressure support of 14 cm of water. 6. Chronic systolic dysfunction/history of coronary artery disease/history of atrial fibrillation/flutter Continue current medical management, with the exception of antihypertensive medications. Recommend judicious use of supplemental IV fluids. 7. Personal history of MS/hypertension/diabetes/hyperlipidemia/chronic pain syndrome Complicates care, management, recovery and prognosis. Continue to hold home antihypertensives. Code Visit Inpatient E&M: 15004 Subs Hosp L3
[2018-06-01] MEDS: Sucralfate 1 GM Tablet PO ×4 (08:38→21:53)
[2018-06-01] MEDS: Aspirin E.C. 81 MG Tablet PO (08:39)
--- NOTE | 2018-06-01 08:49 | PCM.PN.HOSP ---
Patient Problems: Active and Suspected Problems (Last Reviewed 05/29/18 @ 14:51 by Lui Paul MD) Hypothermia (Acute) Hypokalemia (Acute) Hypovolemic shock (Acute) Subjective: Did well overnight. She has been off of her levo fed since 3 PM yesterday. Vitals/I&O's: Vital Signs Temp Pulse Resp BP Pulse Ox 98.3 F 72 18 103/58 L 99 06/01/18 08:00 06/01/18 08:00 06/01/18 08:00 06/01/18 08:00 06/01/18 08:00 Oxygen Delivery Method Room Air Weight: 157 lb 6.561 oz Body Mass Index (BMI) 23.2 Finger Stick Blood Glucose 151 Intake and Output for Last 24 Hours 05/30/18 05/31/18 06/01/18 23:59 23:59 23:59 Intake Total 5038.8 / 5038.8 3829.4 / 3829.4 881 / 881 Output Total 1500 / 1500 2024 / 2024 425 / 425 Balance 3538.8 / 3538.8 1804.4 / 1804.4 456 / 456 General: Alert, Oriented x3, Cooperative, No apparent distress HEENT: Atraumatic, EOMI, Normocephalic Neck: Supple, No JVD, Trachea Midline Lungs: Clear to auscultation, Normal air movement, No rhonchi, No wheeze, No rales, Diminished Cardiovascular: Regular rate, Regular Rhythm, Normal S1, Normal S2, No murmurs Abdomen: Soft, Non Tender, Non-Distended, No Hepato-splenomegaly Extremities: No edema, Capillary Refill Less than 3 Seconds Skin: No rashes, No breakdown Neurological: Neuro grossly intact, Sensory exam intact to light touch and pain Psych/Mental Status: Flat Affect, Suicidal Microbiology Past 72 Hours 05/29/18 10:50 Blood Culture (Wb) - Right Hand Blood Culture - Preliminary No growth in 48 hours. 05/29/18 10:45 Blood Culture (Wb) - Right Forearm Blood Culture - Preliminary No growth in 48 hours. 05/29/18 11:26 Urine Catheter - Rodney Urine Culture - Final Presumptive E. coli 05/29/18 10:54 Stool Enteric Bacteriology - Final 05/29/18 10:45 Stool C. difficile DNA Amplification - Final 05/29/18 11:25 Mucosa - Nasopharyngeal Influenza Types A,B Direct FA (ANTONIA) - Final Laboratory Results 05/31/18 11:56: POC Glucose 182 H 05/31/18 17:06: POC Glucose 154 H 05/31/18 21:05: POC Glucose 97 06/01/18 04:10: Sodium 139, Potassium 4.1, Chloride 112 H, Carbon Dioxide 19.0 L, Anion Gap 8, BUN 10, Creatinine 0.57, Estim Creat Clear Calc 90.90, Est GFR (MDRD) Af Amer 137, Est GFR (MDRD) Non-Af 113, BUN/Creatinine Ratio 17.4, Glucose 42 L*, Calcium 8.4 L 06/01/18 04:35: POC Glucose 38 L* 06/01/18 04:56: POC Glucose 83 06/01/18 06:03: POC Glucose 88 06/01/18 07:05: POC Glucose 105 Current Medications Acetaminophen (Tylenol) 650 mg PO Q6H PRN PRN PRN Reason: Mild Pain (1-3)/Temp > 100.7 F Last Admin: 05/30/18 17:07 Dose: 650 mg Al Hydroxide/Mg Hydroxide (Mylanta Ii) 30 ml PO Q6H PRN PRN PRN Reason: Gastric burning Albuterol Sulfate (Ventolin Aerosols) 2.5 mg INHALATION Q4H PRN PRN Reason: SOB &/OR WHEEZING Aspirin (Ecotrin) 81 mg PO DAILY@0800 [facility] Last Admin: 06/01/18 08:39 Dose: 81 mg Bisacodyl (Dulcolax) 5 mg PO DAILY PRN PRN PRN Reason: Constipation Calamine/Phenol (Calmoseptine Ointment) 1 applic TOPICAL TID [facility]; Protocol Last Admin: 06/01/18 05:01 Dose: 1 applicatio Chlorhexidine Gluconate () 1 each TOPICAL DAILY [facility] Last Admin: 06/01/18 05:02 Dose: 1 each Cholecalciferol (Vitamin D) 2,000 unit PO DAILYCM [facility] Last Admin: 06/01/18 08:38 Dose: 2,000 unit Clopidogrel Bisulfate (Plavix) 75 mg PO DAILY [facility] Last Admin: 05/31/18 10:14 Dose: 75 mg Dextrose (D50w Syringe) 0 gm IV X1 PRN; Protocol PRN Reason: Hypoglycemia Donepezil HCl (Aricept) 20 mg PO QHS [facility] Last Admin: 05/31/18 21:07 Dose: 20 mg Enoxaparin Sodium (Lovenox) 30 mg SC DAILY@1000 [facility] Last Admin: 05/31/18 10:13 Dose: 30 mg Glucagon () 1 mg IM .X1 PRN PRN Reason: Hypoglycemia Hydroxyzine Pamoate (Vistaril Pamoate Capsule) 50 mg PO TID PRN PRN PRN Reason: ITCHING Ceftriaxone Sodium (Rocephin) 1 gm in 50 mls @ 100 mls/hr IV Q24 [facility] Last Admin: 05/31/18 10:20 Dose: 100 mls/hr Insulin Glargine (Lantus (Bk)) 18 units SC DAILY [facility] Last Admin: 05/31/18 10:13 Dose: Not Given Insulin Human Lispro (Humalog Kwikpen (Bk)) 0 unit SQ ACHS [facility]; Protocol Last Admin: 06/01/18 07:35 Dose: Not Given Magnesium Hydroxide (Milk Of Magnesia) 30 ml PO DAILY PRN PRN Reason: Constipation Methadone HCl () 5 mg PO QHS [facility] Last Admin: 05/31/18 21:07 Dose: 5 mg Modafinil (Provigil) 200 mg PO DAILY [facility] Last Admin: 05/31/18 10:20 Dose: 200 mg Nicotine (Nicoderm Cq (Pbkc)) 21 mg TRANSDERM. DAILY [facility] Last Admin: 05/31/18 10:13 Dose: 21 mg Oxycodone HCl (Oxyir) 5 - 10 mg PO Q4H PRN PRN PRN Reason: MOD-SEVERE PAIN (4-10/10) Pantoprazole Sodium (Protonix) 40 mg PO QHS [facility] Last Admin: 05/31/18 21:07 Dose: 40 mg Potassium Chlor[facility] ([facility]-Dur) [facility] Last Admin: 06/01/18 08:39 Dose: 20 meq Pramipexole Dihydrochloride (Mirapex) 0.5 mg PO DAILY@2100 [facility] Last Admin: 05/31/18 21:07 Dose: 0.5 mg Promethazine HCl (Phenergan Tablet) 25 mg PO 4X/DAY PRN PRN Reason: NAUSEA/VOMITING Risperidone (Risperdal) 1 mg PO QHS [facility] Last Admin: 05/31/18 21:07 Dose: 1 mg Sodium Chloride () 5 - 15 ml IV UD PRN PRN Reason: SALINE FLUSH Last Admin: 06/01/18 05:02 Dose: 15 ml Sodium Chloride () 10 - 40 ml IV UD PRN PRN Reason: MULTILUMEN/HICMAN CATH FLUSH Last Admin: 05/31/18 05:09 Dose: 20 ml Sucralfate (Carafate) 1 gm PO 1HR_ACHS [facility] Last Admin: 06/01/18 08:38 Dose: 1 gm Medical Necessity - Tobacco Use Smoking Status: Current every day smoker Assessment/Plan All Active Problems (Last Reviewed 05/29/18 @ 14:51 by Lui Paul MD) Hypothermia (Acute) Hypokalemia (Acute) Hypovolemic shock (Acute) Chest pain (Acute) Suicidal ideation (Acute) Acute ST segment elevation [place] (Resolved) Shortness of breath (Resolved) Syncope (Resolved) Chest pain (Resolved) STEMI (ST elevation myocardial infarction) (Resolved) Takotsubo cardiomyopathy (Resolved) Takotsubo cardiomyopathy (Resolved) 1. Septic shock secondary to UTI from E. coli/AK I -She does appear to be improving, and has done well off levo fed -Currently on Duricef thousand milligrams twice daily -Her acute kidney injury has resolved with improvement in her sepsis and IV fluids 2. Depression with suicidal ideation -She is on risperidone at home -Is currently stable to be evaluated by crisis 3. Coronary artery disease status post stent/A. fib/hypertension/chronic systolic CHF/HLD -We will restart on discharge -She had been on systemic anticoagulation though she is not currently on any for her A. fib -Continue with aspirin/Plavix -Hold her Lasix given her necessity for IV fluid resuscitation 4. MS without acute exacerbation/RLS/chronic pain -Continue with Aubagio and Aricept -Continue with Mirapex -Continue with methadone 5. DM 2 -Continue with her home insulin regimen of Lantus 18 units daily as well as a sliding scale insulin -Hold glimepiride 6. BRYAN/COPD -She does not have a CPAP though she had a sleep study in 2017 that supported its use -Continue with Provigil DVT: Lovenox Code Visit Inpatient E&M: 58580 Subs Hosp L2
[2018-06-01] MEDS: TERIFLUNOMIDE 14 MG PO (10:58)
[2018-06-01] MEDS: Cefadroxil 500 MG CAPSULE 1000 MG PO ×2 (10:58→21:51)
[2018-06-01] MEDS: Enoxaparin 30 MG/0.3 ML Syringe SC (10:59)
[2018-06-01] MEDS: Clopidogrel Bisulfate 75 MG Tablet PO (11:01)
[2018-06-01] MEDS: Modafinil 200 MG Tablet PO (11:05)
[2018-06-01 11:16] LABS: Bedside Glucose 136 mg/dL (70-110)
--- NOTE | 2018-06-01 13:06 | NURSING ---
Crisis counselor present with patient in room
[2018-06-01] MEDS: Insulin Lispro 100 UNIT/ML INSULN.PEN SQ ×2 (15:44→21:53)
[2018-06-01 15:56] LABS: Bedside Glucose 150 mg/dL (70-110)
[2018-06-01] MEDS: Pantoprazole Sodium 40 MG Tablet PO (21:52)
[2018-06-01] MEDS: Pramipexole Di-HCl 0.5 MG Tablet PO (21:52)
[2018-06-01] MEDS: Donepezil HCl 10 MG Tablet 20 MG PO (21:52)
[2018-06-01] MEDS: RisperiDONE 1 MG Tablet PO (21:54)
--- NOTE | 2018-06-01 23:47 | DCINST_ITS ---
- Discharge Diagnoses Current Active Problems: Current Active and Chronic Problems (Last Reviewed 05/29/18 @ 14:51 by Lui Paul MD) Hypothermia (Acute) Hypokalemia (Acute) Hypovolemic shock (Acute) Reason(s) for Visit for Discharge Instructions: suicidal ideation Discharge Activity: Return to Normal Activity Allergies/Adverse Reactions: Allergies indomethacin [From Indocin] Allergy (Verified 05/29/18 11:47) Hives indomethacin sodium [From Indocin] Allergy (Verified 05/29/18 11:47) Hives iodine Allergy (Verified 05/29/18 11:47) Hives propoxyphene napsylate [From Darvocet-N] Allergy (Verified 05/29/18 11:47) Out of control aripiprazole [From Abilify] Adverse Reaction (Verified 05/29/18 11:47) Other aspirin Adverse Reaction (Verified 05/29/18 11:47) Upset Stomach when taken in high doses clindamycin Adverse Reaction (Verified 05/29/18 11:47) Nausea metformin Adverse Reaction (Verified 05/29/18 11:47) Other IT CAUSES MY KIDNEYS TO DO WEIRD THINGS sumatriptan [From Imitrex] Adverse Reaction (Verified 05/29/18 11:47) Vomiting Medications to take at Discharge Aspirin E.C. [Ecotrin] 81 mg PO DAILY@0800 10/21/16 Glimepiride [Amaryl] 4 mg PO BID 10/21/16 Clopidogrel Bisulfate [Plavix] 75 mg PO DAILY 05/18/17 lisinopril 2.5 mg tablet 2.5 mg PO DAILY #28 tab 05/26/17 Teriflunomide [Aubagio] 14 mg PO DAILY 06/02/17 ropinirole 0.5 mg tablet 2 mg PO QHS tab 06/22/17 Isosorbide Mononitrate [Isosorbide Mononitrate ER] 30 mg PO DAILY 10/06/17 Potassium Chloride [K-Dur] 20 meq PO DAILY 10/06/17 Furosemide [Lasix] 40 mg PO DAILY 10/19/17 Methadone HCl 5 mg PO QHS 10/19/17 Promethazine HCl 25 mg PO 4X/DAY PRN 10/19/17 Sucralfate [Carafate] 1 gm PO 4X/DAY 10/19/17 Albuterol Inhaler [Ventolin Hfa (SP)] 2 puff INHALATION Q6H PRN PRN 10/23/17 Carvedilol [Coreg] 3.125 mg PO BID 10/23/17 Cholecalciferol (Vitamin D3) [Vitamin D3] 2,000 unit PO DAILY 10/23/17 Hydroxyzine HCl 50 mg PO TID PRN PRN 10/26/17 Modafinil [Provigil] 200 mg PO DAILY 10/26/17 Oxycodone HCl/Acetaminophen [Oxycodone-Acetaminophen 10-325] 1 - 2 tab PO Q4H PRN PRN 10/26/17 Pantoprazole Sodium [Protonix] 40 mg PO QHS 11/23/17 Donepezil HCl [Aricept] 20 mg PO QHS 12/18/17 ferrous sulfate 325 mg (65 mg iron) tablet 325 mg PO DAILY tab 12/18/17 insulin glargine (U-100) 100 unit/mL (3 mL) subcutaneous pen 18 unit SC DAILY ml 12/18/17 Rosuvastatin Calcium [Crestor] 40 mg PO QHS 01/06/18 Risperidone 1 mg PO QHS 02/23/18 Primary Care Physician: Matthew Noble Chi, MD [Primary Care Provider] - Test Results: Test results from this visit will be discussed in further detail at your follow- up appointment, if applicable. Proposed Discharge Date: 06/01/18
[2018-06-02 02:51] LABS: Bedside Glucose 211 mg/dL (70-110)
--- NOTE | 2018-06-02 12:51 | DS.PCM_ITS ---
Discharge Date and Diagnosis Date of Admission: 05/29/18 Date of Discharge: 06/02/18 - Secondary Discharge Diagnosis Chronic Problems (Last Reviewed 05/29/18 @ 14:51 by Lui Paul MD) Takotsubo syndrome (Chronic) Non-rheumatic tricuspid valve insufficiency (Chronic) Dilated cardiomyopathy (Chronic) Atherosclerotic heart disease of [place] coronary artery without angina pectoris (Chronic) Typical atrial flutter (Chronic) Status post placement of implantable loop recorder (Chronic) Implant 07/09 Paroxysmal atrial fibrillation (Chronic) Left ventricular hypertrophy (Chronic) Nicotine abuse (Chronic) Chronic systolic (congestive) heart failure (Chronic) History of coronary artery stent placement (Chronic) LHC w/PCI, aspiration thrombectomy and FEROZ to mid LAD 04/08/16 Ischemic cardiomyopathy (Chronic) Diabetes mellitus type 2 in nonobese (Chronic) Apical mural thrombus with acute [place] (Chronic) COPD (chronic obstructive pulmonary disease) (Chronic) HTN (hypertension) (Chronic) Hyperlipemia (Chronic) Multiple sclerosis Hospital Course and Treatment Imaging Results: CXR: IMPRESSION: 1. No airspace consolidation or pleural effusion Consultations 06/01/18 11:39 Consult: Mental Health/Crisis Routine Reason for consult?: Suicidal ideation Date Notified:: 06/01/18 Time notified:: 11:45 ICU Operations: None Procedures: Central line placement Summary of Care Provided: Per HPI: The patient is a 62 year old F 62-year-old lady with multiple comorbidities including CAD with previous MN, hypertension, multiple sclerosis, diabetes mellitus type 2, who called the squad complaining of suicidal ideation. The squad upon arrival found patient covered in feces and urine. Fabian garcia apparently did tell the squad about having had diarrhea for 3 continuous days. She was subsequently transferred to the emergency department where patient was found to be hypothermic with temperature of 94. Patient was hypotensive with blood pressure in the 60s. She was also found to be hypokalemic with acute kidney injury IV fluid resuscitation patient admitted to the intensive care unit for subsequent evaluation. Hospital Course: 1. Septic shock secondary to UTI from E. coli/AK I-on admission she had to have a central line placed as well as be started on levofed to maintain her mean arterial pressure above 65 which was discontinued after 2 days. She was also started on antibiotics and was transitioned to Duricef 1000 mg p.o. twice daily when her urine culture came back with sensitivities. She would need 5 more days of oral antibiotics. Also on admission her creatinine was elevated to 3.4 and on the day of discharge it had decreased back to her baseline of 0.57. 2. Depression with suicidal ideation-she acknowledges the fact that she was suicidal and had plan to take an overdose of her medications, therefore crisis was consulted to evaluate when she was medically stable and she was discharged to an inpatient mental health facility. 3. Her other medical diagnoses were evaluated and her home medications were continued where appropriate - Physical Exam Vital Signs Temp Pulse Resp BP Pulse Ox 97.9 F 84 20 H 134/71 H 97 06/01/18 23:49 06/01/18 23:49 06/01/18 23:49 06/01/18 23:49 06/01/18 23:49 Oxygen Delivery Method Room Air Weight: 157 lb 6.561 oz Body Mass Index (BMI) 23.2 Finger Stick Blood Glucose 151 Intake and Output for Last 24 Hours 05/31/18 06/01/18 06/02/18 23:59 23:59 23:59 Intake Total 3829.4 / 3829.4 1141 / 1141 Output Total 2024 / 2024 875 / 875 Balance 1804.4 / 1804.4 266 / 266 Microbiology Past 72 Hours 05/29/18 10:50 Blood Culture - Preliminary Blood Culture (Wb) - Right Hand No growth in 48 hours. 05/29/18 10:45 Blood Culture - Preliminary Blood Culture (Wb) - Right Forearm No growth in 48 hours. 05/29/18 11:26 Urine Culture - Final Urine Catheter - Rodney Presumptive E. coli 05/29/18 10:54 Enteric Bacteriology - Final Stool POC Glucose 06/01/18 06/01/18 21:46 15:34 POC Glucose 211 H 150 H Discharge Activity: Return to Normal Activity Home Medications: Medications to take at Discharge Aspirin E.C. [Ecotrin] 81 mg PO DAILY@0800 10/21/16 Glimepiride [Amaryl] 4 mg PO BID 10/21/16 Clopidogrel Bisulfate [Plavix] 75 mg PO DAILY 05/18/17 lisinopril 2.5 mg tablet 2.5 mg PO DAILY #28 tab 05/26/17 Teriflunomide [Aubagio] 14 mg PO DAILY 06/02/17 ropinirole 0.5 mg tablet 2 mg PO QHS tab 06/22/17 Isosorbide Mononitrate [Isosorbide Mononitrate ER] 30 mg PO DAILY 10/06/17 Potassium Chloride [K-Dur] 20 meq PO DAILY 10/06/17 Furosemide [Lasix] 40 mg PO DAILY 10/19/17 Methadone HCl 5 mg PO QHS 10/19/17 Promethazine HCl 25 mg PO 4X/DAY PRN 10/19/17 Sucralfate [Carafate] 1 gm PO 4X/DAY 10/19/17 Albuterol Inhaler [Ventolin Hfa (SP)] 2 puff INHALATION Q6H PRN PRN 10/23/17 Carvedilol [Coreg] 3.125 mg PO BID 10/23/17 Cholecalciferol (Vitamin D3) [Vitamin D3] 2,000 unit PO DAILY 10/23/17 Hydroxyzine HCl 50 mg PO TID PRN PRN 10/26/17 Modafinil [Provigil] 200 mg PO DAILY 10/26/17 Oxycodone HCl/Acetaminophen [Oxycodone-Acetaminophen 10-325] 1 - 2 tab PO Q4H PRN PRN 10/26/17 Pantoprazole Sodium [Protonix] 40 mg PO QHS 11/23/17 Donepezil HCl [Aricept] 20 mg PO QHS 12/18/17 ferrous sulfate 325 mg (65 mg iron) tablet 325 mg PO DAILY tab 12/18/17 insulin glargine (U-100) 100 unit/mL (3 mL) subcutaneous pen 18 unit SC DAILY ml 12/18/17 Rosuvastatin Calcium [Crestor] 40 mg PO QHS 01/06/18 Risperidone 1 mg PO QHS 02/23/18 Primary Care Physician: Matthew Noble Chi, MD [Primary Care Provider] - Please follow up with your Primary Care Physician in: 3-5 days Disposition: Psych Hospital or Unit Minutes spent on discharge:: 35 Patient Condition:: Stable Medical Necessity - Tobacco Use Smoking Status: Current every day smoker Meaningful Use Info Meaningful Use Diagnoses (Choose all that apply): None applicable Code Visit Inpatient E&M: 81449 Disch Hosp
== END 2018-06-01 23:50 | DRG 871 ==
LOC: ED 12:15 → PCU 14:38 → ICU 18:24
PROVIDERS: Internal Medicine Critical Care Medicine; Admitting Provider Internal Medicine; Emergency Provider Emergency Medicine; Family Provider Family Medicine Geriatric Medicine; PCP Family Medicine Geriatric Medicine; Visit Provider Family Medicine
DX: A41.9 Sepsis, unspecified organism (principal); R65.21 Severe sepsis with septic shock; R57.1 Hypovolemic shock; N17.9 Acute kidney failure, unspecified; R45.851 Suicidal ideations; E87.1 Hypo-osmolality and hyponatremia; N30.00 Acute cystitis without hematuria; I50.22 Chronic systolic (congestive) heart failure; G35 Multiple sclerosis; E11.9 Type 2 diabetes mellitus without complications; I25.10 Atherosclerotic heart disease of native coronary artery without angina pectoris; E87.6 Hypokalemia; E86.0 Dehydration; E78.5 Hyperlipidemia, unspecified; J44.9 Chronic obstructive pulmonary disease, unspecified; B96.20 Unspecified Escherichia coli [E. coli] as the cause of diseases classified elsewhere; F32.9 Major depressive disorder, single episode, unspecified; G47.33 Obstructive sleep apnea (adult) (pediatric); I25.2 Old myocardial infarction; Z79.4 Long term (current) use of insulin; Z95.5 Presence of coronary angioplasty implant and graft; I36.1 Nonrheumatic tricuspid (valve) insufficiency; F17.200 Nicotine dependence, unspecified, uncomplicated; I11.0 Hypertensive heart disease with heart failure; R68.0 Hypothermia, not associated with low environmental temperature
CPT/HCPCS: 51702; 71045; 80048; 80053; 80307; 80320; 80329; 81001; 82550; 82962; 83605; 83735; 84443; 84484; 85025; 85027; 85610; 85730; 87040; 87086; 87088; 87186; 87493; 87506; 87641; 87804; 93005; 97162; 97166; 97530; 97535; 97802; 99251; 99285; 99406; J7030; J7120; A4216; C1751; G0463; G0480

== ENCOUNTER → 2018-06-30 13:01 | Outpatient (CLI) | payer MEDICARE, SELFPAY ==
[2016-07-13 11:45] VITALS: BMI 31.4
[2018-06-30 13:01] VITALS: BMI 23.4
[2018-06-30 15:08] LABS: Absolute Lymphocyte Count 1.25 X10^3/ul (0.83-4.51); Absolute Neutrophil Count 7.4 X10^3/uL (2.0-7.7); Basophil# 0.08 X10^3/uL; Basophil% 0.8 % (0-1); Eosinophil# 0.17 X10^3/uL; Eosinophils% 1.7 % (0-5); Hematocrit 43.9 % (37-47); Hemoglobin 14.4 g/dl (12.0-15.0); Lymphocyte # 1.25 X10^3/ul (4.0); Lymphocyte % 12.5 % (19-41); Mean Corp Hgb Conc 32.8 g/gl (32-36); Mean Corpuscular Hgb 30.4 pg (27.0-32.0); Mean Corpuscular Volume 92.8 fL (81-99); Mean Platelet Vol. 9.8 fl (6.2-12.0); Monocyte# 1.07 X10^3/uL; Monocyte% 10.7 % (0-10); Neutrophil # 7.39 X10^3/uL (2.7-7.7); Platelet Count 340 K/mm3 (150-450); RBC Distribution Width SD 54.8 fl (35.1-43.9); Red Blood Count 4.73 M/mm3 (4.2-5.4)
[2018-06-30 15:14] LABS: POSITIVE COUNT NO; POSITIVE DIFFERENTIAL NO; POSITIVE MORPHOLOGY NO
[2018-06-30 15:18] LABS: Vitamin D,25 Hydroxy 34.3 ng/mL (29.95-100.01)
[2018-06-30 15:25] LABS: ALB/GLOB Ratio 0.9 RATIO (0.9-2.4); AST(SGOT) 12 U/L (15-37); Alanine Aminotransfer ALT/SGPT 17 U/L (13-56); Albumin, Serum 3.2 g/dL (3.2-5.0); Alkaline Phosphatase 129 U/L (45-117); Anion Gap 12 (5-15); BUN 9 mg/dL (7-18); BUN/Creat Ratio 11.2 RATIO (10-20); Calcium,Total 9.3 mg/dL (8.5-10.1); Chloride 97 mmol/L (98-107); EST Glomerular Filtration Rate 77 mL/min (>60); Est Glom Filt Rate - Afr Amer 93 mL/min (>60); Globulin 3.6 g/dL (2.2-4.2); Glucose 231 mg/dL (74-106); Potassium 2.8 mmol/L (3.5-5.1); Protein, Total 6.8 g/dL (6.4-8.2); Sodium Level 134 mmol/L (136-145); Thyroid Stim Hormone (TSH) 0.39 uIU/mL (0.358-3.74)
== END ==
PROVIDERS: Family Provider Family Medicine Geriatric Medicine; PCP Family Medicine Geriatric Medicine; Visit Provider Family Medicine Geriatric Medicine
DX: E11.9 Type 2 diabetes mellitus without complications (principal); I10 Essential (primary) hypertension; E55.9 Vitamin D deficiency, unspecified
CPT/HCPCS: 36415; 80053; 82306; 84443; 85025

== ENCOUNTER 2018-07-18 15:22 | Emergency (ER) | payer MEDICARE, SELFPAY ==
[2016-07-13 11:45] VITALS: BMI 31.4
[2018-06-30 13:01] VITALS: BMI 23.4
[2018-07-18] VITALS (8 sets, daily range): BP systolic 103–111; BP diastolic 55–67; PULSE 75–88; RESP 16–18; TEMP 36.9; O2SAT 97–98; BMI 24.1
--- NOTE | 2018-07-18 16:15 | CM.ED ---
Social Work Assessment Reason for Consult: SI Informant: Cuauhtemoc Boateng RN Information obtained from: Medical record and patient. Pt is alert and oriented x3 and able to participate in assessment. Pt presents with flat affect as evidenced by no change in expression or tone of voice throughout conversation. Pt does respond appropriately to inquiries and engages in appropriate social etiquette. Reports that she contacted [facility] today and was brought in for SI. Acetaldehyde Converter Operator pink slipped the pt to [facility] ED for evaluation. Living Arrangements: Pt reports to live with a roommate, Lazaro, who she identifies as a good support. Claims that they recently had their electricity turned off as they are struggling to pay that utility. Supports: Pt identifies Lazaro as a support. Stressors: Electricity turned off. Mental Health Hx: Hx of depression. Pt is a client of [facility] and sees Dr. Renteria (last seen in May) as well as Charlene Rm for counseling. She saw Charlene Thursday and her next appointment is on 07/30/18. Pt was hospitalized 8 times for psychiatric symptoms in 2017 and once in May of this year at [facility] on 06/01. She was released from [facility] on 06/10/18 and has been at home since. Today she reports suicidal ideation with a plan to take her medications on her table. Estimates that she has between 50-75 pills. Reports that she has had attempts int he past, but cannot provide dates. Claims that Lazaro has interrupted her attempts in the past. Pt denies having anything to live for and states I don't want to be here anymore. Pt does not feel that she can confirm her safety. Discuss with pt that crisis will evaluate for placement in psychiatric hospital. Substance Abuse Hx: No substance abuse hx reported. ASSESSMENT: Pt is able to participate in assessment and remains calm and cooperative throughout assessment. Pt presents with flat affect and is depressed. Confirms SI and plan to take large amount of pills to overdose. Pt has a hx of this attempt and has been psychiatrically hospitalized in the past for it. At this time do feel that pt would benefit from psychiatric hospitalization for stabilization and additional care. Crisis to be consulted for psychiatric hospitalization. Updated nursing. Pt placed in suicidal precautions. Intervention(s): Face to face evaluations and pt's suicide risk is too great to return home at this time. Crisis to evaluate for psychiatric hospitalization. ED staff updated. Pt placed in suicide precautions per policy. PLAN: Crisis to evaluate for psychiatric hospitalization. Malini Mccarthy MSW, SQL SERVER CONSULTANT
[2018-07-18 16:26] LABS: Absolute Lymphocyte Count 1.71 X10^3/ul (0.83-4.51); Absolute Neutrophil Count 7.7 X10^3/uL (2.0-7.7); Basophil# 0.06 X10^3/uL; Basophil% 0.6 % (0-1); Eosinophil# 0.24 X10^3/uL; Eosinophils% 2.2 % (0-5); Hemoglobin 14.1 g/dl (12.0-15.0); Lymphocyte # 1.71 X10^3/ul (4.0); Mean Corp Hgb Conc 35.3 g/gl (32-36); Mean Corpuscular Hgb 31.1 pg (27.0-32.0); Mean Corpuscular Volume 88.3 fL (81-99); Mean Platelet Vol. 9.3 fl (6.2-12.0); Monocyte# 1.02 X10^3/uL; Monocyte% 9.5 % (0-10); Neutrophil # 7.66 X10^3/uL (2.7-7.7); Neutrophil % 71.5 % (47-70); Platelet Count 277 K/mm3 (150-450); RBC Distribution Width CV 13.9 % (11.6-14.6); Red Blood Count 4.53 M/mm3 (4.2-5.4); White Blood Count 10.7 K/mm3 (4.4-11.0)
[2018-07-18 16:29] LABS: Red Blood Cells-Urine 0 SEEN /hpf (0-5)
[2018-07-18 16:30] LABS: Mucous, Urine 0 SEEN /hpf (<or=2+)
[2018-07-18 16:32] LABS: POSITIVE COUNT NO; POSITIVE DIFFERENTIAL NO; POSITIVE MORPHOLOGY NO
[2018-07-18 16:54] LABS: Color, Urine Straw (Yellow); Glucose, Dipstick Normal (Normal); Ketone-Dipstick Negative (Negative); Leukocyte Esterase-Dipstick 100 /ul (Negative); Nitrite-Dipstick Negative (Negative); Occult Blood-Urine Negative /ul (Negative); Protein-Dipstick Negative (Negative); Specific Gravity, Urine 1.005 (1.002-1.030); Urine Bilirubin Dipstick Negative (Negative); Urine Clarity Clear (Clear); Urine Urobilinogen Normal (Normal)
[2018-07-18 16:56] LABS: Alcohol, Blood (Medical)-Serum < 3.0 mg/dL
[2018-07-18 16:58] LABS: Anion Gap 8 (5-15); BUN 12 mg/dL (7-18); BUN/Creat Ratio 15.8 RATIO (10-20); Calcium,Total 9.4 mg/dL (8.5-10.1); Chloride 98 mmol/L (98-107); Creatinine, Serum 0.76 mg/dL (0.55-1.02); EST Glomerular Filtration Rate 82 mL/min (>60); Est Glom Filt Rate - Afr Amer 99 mL/min (>60); Estimated Creatinine Clearance 68.18 ml/min; Glucose 204 mg/dL (74-106); Potassium 3.3 mmol/L (3.5-5.1); Sodium Level 133 mmol/L (136-145); Thyroid Stim Hormone (TSH) 0.75 uIU/mL (0.358-3.74)
[2018-07-18 17:00] LABS: Amphetamine Urine VISTA NEGATIVE (<1000 ng/mL); Barbiturate Urine VISTA NEGATIVE (< 200 ng/mL); Benzodiazepine Urine VISTA NEGATIVE (< 200 ng/mL); Cocaine Urine VISTA NEGATIVE (< 300 ng/mL); Ecstacy Urine VISTA NEGATIVE (< 500 ng/mL); Methadone Urine VISTA NEGATIVE (< 300 ng/mL); PCP Urine VISTA NEGATIVE (< 25 ng/mL); THC Urine VISTA NEGATIVE (< 50 ng/mL); Vista UDS pH Range 7
[2018-07-18 17:06] LABS: Bacteria RARE /hpf (None Seen); Squamous Epithelial Cells - UA 0-5 SEEN /hpf (5-10); White Blood Cells 5-10 SEEN /hpf (0-5)
--- NOTE | 2018-07-18 19:06 | ED.RN ---
TALKED TO ASHA FROM CRISIS AND NOTIFIED HER THAT THIS PT IS HERE AND NEEDS TO BE EVALUATED BY CRISIS. SHE STATED SHE WILL BE HERE SOON SHE CAN TO SEE THIS PT.
[2018-07-18] MEDS: Nitrofurantoin Macrocrystals 100 MG Capsule PO (19:49)
--- NOTE | 2018-07-18 21:43 | ED.RN ---
ASHA FROM CRISIS IS HERE TO SEE THIS PT NOW.
--- NOTE | 2018-07-18 21:54 | ED.DCSUM_ITS ---
History of Present Illness Chief Complaint: Suicidal Informant: Patient Onset: Yesterday Context: Gradual Onset Timing: Continuous Current Severity: Severe Maximum Severity: Severe Associated Symptoms: Recent nonproductive cough and congestion. No shortness of breath. Narrative: Patient has a long-standing history of depression and suicidality, seen at this facility many times in the past for similar complaints. She states she is suicidal since yesterday with a plan to take every medication in my house. She states there is no specific cause for her to feel worse recently. She denies any self-inflicted wounds or taking any of these medications. Feels like she has had a cold lately. No shortness of breath or fevers. - Past Medical History (1) Major depression Status: Chronic (2) Apical mural thrombus with acute [place] Status: Chronic (3) Atherosclerotic heart disease of [place] coronary artery without angina pectoris Status: Chronic (4) COPD (chronic obstructive pulmonary disease) Status: Chronic (5) Chronic systolic (congestive) heart failure Status: Chronic (6) Diabetes mellitus type 2 in nonobese Status: Chronic (7) HTN (hypertension) Status: Chronic (8) Hyperlipemia Status: Chronic (9) Ischemic cardiomyopathy Status: Chronic (10) Non-rheumatic tricuspid valve insufficiency Status: Chronic Past Medical History - Allergies and Home Meds Allergies/Adverse Reactions: Allergies indomethacin [From Indocin] Allergy (Verified 07/18/18 15:26) Hives indomethacin sodium [From Indocin] Allergy (Verified 07/18/18 15:26) Hives iodine Allergy (Verified 07/18/18 15:26) Hives propoxyphene napsylate [From Darvocet-N] Allergy (Verified 07/18/18 15:26) Out of control aripiprazole [From Abilify] Adverse Reaction (Verified 07/18/18 15:26) Other aspirin Adverse Reaction (Verified 07/18/18 15:26) Upset Stomach when taken in high doses clindamycin Adverse Reaction (Verified 07/18/18 15:26) Nausea metformin Adverse Reaction (Verified 07/18/18 15:26) Other IT CAUSES MY KIDNEYS TO DO WEIRD THINGS sumatriptan [From Imitrex] Adverse Reaction (Verified 07/18/18 15:26) Vomiting Primary Care Physician: Matthew Noble Chi, MD [Primary Care Provider] - Surgical History: adenoidectomy, angioplasty - Cardiac stent, tonsillectomy, - - L foot great toe ampuation, Back surgery x 3, L carpal tunnel surgery x 2, R carpal tunnel surgery x 1, R thumb reconstructive surgery. cervical spinal surgery february [address] [facility]. Smoking Status: Current every day smoker Drugs: None - Family History Maternal Family History: Family History (Last Reviewed 05/29/18 @ 14:51 by Lui Paul MD) Father Cancer Mother Cancer Family History: Reports: Cancer - mother pancreatic ca Paternal Family History: Family History (Last Reviewed 05/29/18 @ 14:51 by Lui Paul MD) Father Cancer Mother Cancer Family History: Reports: Cancer - father lung ca., - - Lung cancer Review of Systems General: Denies: Chills, Fever, Sweats Eyes: Denies: Visual changes - bilaterally, Diplopia ENT: Reports: Rhinorrhea. Denies: Bilateral ear pain, Sore throat Cardiovascular: Denies: Chest pain, Palpitations Respiratory: Reports: Cough. Denies: Dyspnea, Sputum Gastrointestinal: Denies: Abdominal pain, Nausea, Vomiting, Diarrhea, Melena, Hematochezia Genitourinary: Denies: Dysuria, Hematuria, Frequency Musculoskeletal: Denies: Back pain, Extremity Pain Skin: Denies: Rash, Wounds Neurological: Denies: Headache, Weakness, Numbness Psych: Reports: Depression, Suicidal thoughts, Suicidal ideations. Denies: Anxiety Physical Exam Vital Signs/Narrative: Vital Signs Pulse Resp BP Pulse Ox 07/18/18 20:26 16 07/18/18 19:52 82 16 103/55 L 97 07/18/18 18:00 16 Inital Vital Signs reviewed: Yes General: Well nourished, Well developed, No Acute Distress Head: Normocephalic, Atraumatic Eyes: Perrl, EOMI ENT: Moist mucous membranes, No rhinorrhea, - - Edentulous. Posterior oropharynx clear. Neck: Supple, Nontender, No lymphadenopathy, No JVD Cardiovascular: Regular rate, Regular rhythm, No murmurs Respiratory: No distress, CTA bilaterally, Chest nontender Abdomen: Soft, Nontender, Nondistended, Normal bowel sounds Back: Nontender, Normal Inspection Extremities: Nontender, No edema Skin: Normal color, No rash Neurological: Alert, Oriented x3, Cranial nerves II-XII grossly intact, Normal Strength, Normal Sensation Psychological: Depressed - Paucity of speech. Poor eye contact. Admits to being suicidal at this time. No active hallucinations or delusions or homicidality. Diagnostic/Tx/Re-eval Laboratory Results 07/18/18 07/18/18 07/18/18 16:17 16:17 16:17 WBC 10.7 RBC 4.53 Hgb 14.1 Hct 40.0 MCV 88.3 MCH 31.1 MCHC 35.3 RDW 13.9 RDW Differential 45.0 H Plt Count 277 MPV 9.3 Immature Gran % (Auto) 0.200 Neut % (Auto) 71.5 H Lymph % (Auto) 16.0 L [place] % (Auto) 9.5 Eos % (Auto) 2.2 Baso % (Auto) 0.6 Absolute Neuts (auto) 7.7 Absolute Lymphs (auto) 1.71 Total Counted Not Reportable Sodium 133 L Potassium 3.3 L Chloride 98 Carbon Dioxide 27.0 Anion Gap 8 BUN 12 Creatinine 0.76 Estim Creat Clear Calc 68.18 Est GFR (MDRD) Af Amer 99 Est GFR (MDRD) Non-Af 82 BUN/Creatinine Ratio 15.8 Glucose 204 H Calcium 9.4 TSH 0.75 Urine Color Urine Clarity Urine pH Ur Specific [place] Urine Protein Urine Glucose (UA) Urine Ketones Urine Occult Blood Urine Nitrite Urine Bilirubin Urine Urobilinogen Ur Leukocyte Esterase Urine RBC Urine WBC Ur Squamous Epith Cells Urine Bacteria Urine Mucus Urine Opiates Screen Urine Methadone Screen Ur Barbiturates Screen Ur Phencyclidine Scrn Ur Amphetamines Screen U Methamphetamin-MDMA U Benzodiazepines Scrn Urine Cocaine Screen U Cannabinoids Screen Ur Drug Screen Comment Ethyl Alcohol < 3.0 07/18/18 07/18/18 16:25 16:25 WBC RBC Hgb Hct MCV MCH MCHC RDW RDW Differential Plt Count MPV Immature Gran % (Auto) Neut % (Auto) Lymph % (Auto) [place] % (Auto) Eos % (Auto) Baso % (Auto) Absolute Neuts (auto) Absolute Lymphs (auto) Total Counted Sodium Potassium Chloride Carbon Dioxide Anion Gap BUN Creatinine Estim Creat Clear Calc Est GFR (MDRD) Af Amer Est GFR (MDRD) Non-Af BUN/Creatinine Ratio Glucose Calcium TSH Urine Color Straw Urine Clarity Clear Urine pH 7.0 Ur Specific [place] 1.005 Urine Protein Negative Urine Glucose (UA) Normal Urine Ketones Negative Urine Occult Blood Negative Urine Nitrite Negative Urine Bilirubin Negative Urine Urobilinogen Normal Ur Leukocyte Esterase 100 H Urine RBC 0 SEEN Urine WBC 5-10 SEEN Ur Squamous Epith Cells 0-5 SEEN Urine Bacteria RARE Urine Mucus 0 SEEN Urine Opiates Screen NEGATIVE Urine Methadone Screen NEGATIVE Ur Barbiturates Screen NEGATIVE Ur Phencyclidine Scrn NEGATIVE Ur Amphetamines Screen NEGATIVE U Methamphetamin-MDMA NEGATIVE U Benzodiazepines Scrn NEGATIVE Urine Cocaine Screen NEGATIVE U Cannabinoids Screen NEGATIVE Ur Drug Screen Comment Ethyl Alcohol - Medical Decision Making Labs show 100 leukocyte esterase in her urine with 5-10 white blood cells, possibly indicating urine infection. I do not think this is causing her psychiatric complaints; it is cultured and treated with an initial Macrobid, I would treat with 100 mg twice daily times 5 days if culture returns positive. Her potassium is slightly low, this may be due to shift from acute respiratory alkalosis if she was hyperventilating prior to arrival, however she does not appear tachypneic at this time, we gave her a dose of potassium. Other than this, her workup was unremarkable including drug screen and alcohol. She is medically cleared, awaiting crisis/psychiatric evaluation. Anticipate transfer to psychiatric facility. Will be checked out to oncoming emergency physician for final disposition. ED Disposition - Plan for ED Patient: Disposition: Psychiatric Hospital or Unit Diagnosis: Suicidal ideation Referrals: Matthew Noble Chi, MD [Primary Care Provider] -
[2018-07-18] MEDS: Albuterol 2.5 MG/3 ML VIAL.NEB. INHALATION (22:20)
[2018-07-18] MEDS: Donepezil HCl 10 MG Tablet 20 MG PO (22:54)
[2018-07-18] MEDS: Carvedilol 3.125 MG TABLET PO (22:55)
[2018-07-18] MEDS: Sucralfate 1 GM Tablet PO (22:55)
[2018-07-18] MEDS: Glimepiride 4 MG Tablet PO (22:55)
[2018-07-18] MEDS: RisperiDONE 1 MG Tablet PO (22:56)
[2018-07-18] MEDS: Pramipexole Di-HCl 1 MG Tablet PO (22:56)
[2018-07-19] VITALS (9 sets, daily range): BP systolic 92–134; BP diastolic 56–69; PULSE 62–72; RESP 15–16; O2SAT 96
== END 2018-07-19 08:34 ==
PROVIDERS: Emergency Provider Emergency Medicine; Family Provider Family Medicine Geriatric Medicine; PCP Family Medicine Geriatric Medicine
DX: F32.9 Major depressive disorder, single episode, unspecified (principal); R45.851 Suicidal ideations; E87.6 Hypokalemia; I11.0 Hypertensive heart disease with heart failure; I50.22 Chronic systolic (congestive) heart failure; I25.10 Atherosclerotic heart disease of native coronary artery without angina pectoris; I25.5 Ischemic cardiomyopathy; I36.1 Nonrheumatic tricuspid (valve) insufficiency; J44.9 Chronic obstructive pulmonary disease, unspecified; E11.9 Type 2 diabetes mellitus without complications; E78.5 Hyperlipidemia, unspecified; F17.200 Nicotine dependence, unspecified, uncomplicated; Z79.84 Long term (current) use of oral hypoglycemic drugs; Z79.02 Long term (current) use of 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/antiplatelets; Z79.82 Long term (current) use of aspirin; Z79.899 Other long term (current) drug therapy
CPT/HCPCS: 36415; 80048; 80307; 80320; 81001; 84443; 85025; 87086; 87088; 94640; 99285; G0480

== ENCOUNTER 2018-08-03 13:24 | Emergency (ER) | payer MEDICARE, SELFPAY ==
[2016-07-13 11:45] VITALS: BMI 31.4
[2018-07-18 15:23] VITALS: BMI 24.1
[2018-08-03 13:25] VITALS: BP 150/70; PULSE 73; RESP 18; TEMP 36.1; O2SAT 97; BMI 23.3
--- NOTE | 2018-08-03 13:46 | EKG12_ITS ---
Test Reason : MEDICAL CLEARANCE Blood Pressure : / mmHG Vent. Rate : 065 BPM Atrial Rate : 065 BPM P-R Int : 156 ms QRS Dur : 104 ms QT Int : 464 ms P-R-T Axes : 036 -49 053 degrees QTc Int : 482 ms Normal sinus rhythm Left axis deviation Inferior infarct , age undetermined Anterior infarct , age undetermined Abnormal ECG Confirmed by ALLAN WITT, DORYS ([id number]), rewrite editor ANA MEDRANO ([id number] on 08/09/2018 4:21:33 PM Referred By: SEMAJ Confirmed By:DORYS LEMUS MD
--- NOTE | 2018-08-03 13:48 | ED.VISSUMM ---
- ER Visit Summary Date of Service: 08/03/18 Chief Complaint: Depression History of Present Illness: The patient is a 62 F who is quite depressed. She has had this multiple times in the past she feels the same way, she has not done anything but wants to take her pills to . She denies any systemic complaints. Physical Examination: Not appear in acute distress. She is comfortable. She is quite unkept and has a strong body odor. Moist mucous membranes, no obvious facial deformity Conjunctiva are not pale. No C-spine tenderness supple neck. Regular rate and rhythm without any obvious murmurs Clear lungs bilaterally speaking in full sentences without any obvious respiratory distress Abdomen soft and nontender no guarding or rebound Moves all extremities without any difficulty or pain. Skin does not show any obvious rashes or lesions, no trauma. She has a flat indifferent affect Alert oriented ?3 with no gross focal deficit Emergency Department Course and Treatment: Patient is found to have a urinary tract infection otherwise she is medically cleared. She will be seeing crisis, Bactrim was given in the emergency department and will be continued. Disposition will be pending crisis evaluation, this patient will be overturned to the next emergency physician Impression depression with suicidal ideation Urinary tract infection This note was generated with [employer] dictation software. It may contain incorrect words, spelling, and punctuation that were not noted in review of the chart prior to signing ED Disposition - Plan for ED Patient: Disposition: Home or Assisted Living Prescriptions: Smz/Tmp Ds [Bactrim Ds] 1 tab PO BID #19 tab Referrals: Matthew Noble Chi, MD [Primary Care Provider] -
--- NOTE | 2018-08-03 13:51 | ED.DCSUM_ITS ---
- ER Visit Summary Date of Service: 08/03/18 Chief Complaint: Depression History of Present Illness: The patient is a 62 F who is quite depressed. She has had this multiple times in the past she feels the same way, she has not done anything but wants to take her pills to . She denies any systemic comp laints. Physical Examination: Not appear in acute distress. She is comfortable. She is quite unkept and has a strong body odor. Moist mucous membranes, no obvious facial deformity Conjunctiva are not pale. No C-spine tenderness supple neck. Regular rate and rhythm without any obvious murmurs Clear lungs bilaterally speaking in full sentences without any obvious respiratory distress Abdomen soft and nontender no guarding or rebound Moves all extremities without any difficulty or pain. Skin does not show any obvious rashes or lesions, no trauma. She has a flat indifferent affect Alert oriented ?3 with no gross focal deficit Emergency Department Course and Treatment: Patient is found to have a urinary tract infection otherwise she is medically cleared. She will be seeing crisis, Bactrim was given in the emergency department and will be continued. Disposition will be pending crisis evaluation, this patient will be overturned to the next emergency physician Impression depression with suicidal ideation Urinary tract infection This note was generated with [employer] dictation software. It may contain incorrect words, spelling, and punctuation that were not noted in review of the chart prior to signing ED Disposition - Plan for ED Patient: Disposition: Home or Assisted Living Prescriptions: Smz/Tmp Ds [Bactrim Ds] 1 tab PO BID #19 tab Referrals: Matthew Noble Chi, MD [Primary Care Provider] -
[2018-08-03 14:18] LABS: Color, Urine Yellow (Yellow); Glucose, Dipstick Normal (Normal); Ketone-Dipstick Negative (Negative); Leukocyte Esterase-Dipstick 500 /ul (Negative); Mucous, Urine 0 SEEN /hpf (<or=2+); Nitrite-Dipstick Positive (Negative); Occult Blood-Urine 25 /ul (Negative); Protein-Dipstick 15 mg/dl (Negative); Red Blood Cells-Urine 0 SEEN /hpf (0-5); Urine Bilirubin Dipstick Negative (Negative); Urine Clarity Cloudy (Clear); Urine Urobilinogen Normal (Normal); Urine pH 6.5 (5.0 - 8.0)
[2018-08-03 14:27] LABS: White Blood Cells >100 SEEN /hpf (0-5)
[2018-08-03 14:28] LABS: Bacteria 4+ /hpf (None Seen); Squamous Epithelial Cells - UA 0-5 SEEN /hpf (5-10)
[2018-08-03 14:31] LABS: Absolute Lymphocyte Count 1.61 X10^3/ul (0.83-4.51); Absolute Neutrophil Count 7.6 X10^3/uL (2.0-7.7); Basophil# 0.07 X10^3/uL; Basophil% 0.7 % (0-1); Eosinophil# 0.25 X10^3/uL; Eosinophils% 2.4 % (0-5); Hematocrit 38.6 % (37-47); Hemoglobin 13.3 g/dl (12.0-15.0); Lymphocyte # 1.61 X10^3/ul (4.0); Lymphocyte % 15.5 % (19-41); Mean Corp Hgb Conc 34.5 g/gl (32-36); Mean Corpuscular Hgb 30.6 pg (27.0-32.0); Mean Corpuscular Volume 88.9 fL (81-99); Mean Platelet Vol. 9.6 fl (6.2-12.0); Monocyte# 0.81 X10^3/uL; Monocyte% 7.8 % (0-10); Neutrophil # 7.62 X10^3/uL (2.7-7.7); Neutrophil % 73.4 % (47-70); Platelet Count 263 K/mm3 (150-450); RBC Distribution Width CV 13.8 % (11.6-14.6); RBC Distribution Width SD 44.2 fl (35.1-43.9); Red Blood Count 4.34 M/mm3 (4.2-5.4); White Blood Count 10.4 K/mm3 (4.4-11.0)
[2018-08-03 14:32] LABS: Differential Indicated SCAN CRITERIA MET; POSITIVE COUNT NO; POSITIVE DIFFERENTIAL NO; POSITIVE MORPHOLOGY YES
[2018-08-03 14:37] LABS: ALB/GLOB Ratio 0.9 RATIO (0.9-2.4); AST(SGOT) 13 U/L (15-37); Alanine Aminotransfer ALT/SGPT 15 U/L (13-56); Albumin, Serum 2.7 g/dL (3.2-5.0); Alkaline Phosphatase 123 U/L (45-117); Anion Gap 9 (5-15); BUN 10 mg/dL (7-18); BUN/Creat Ratio 14.9 RATIO (10-20); Calcium,Total 8.9 mg/dL (8.5-10.1); Chloride 108 mmol/L (98-107); Creatinine, Serum 0.67 mg/dL (0.55-1.02); EST Glomerular Filtration Rate 94 mL/min (>60); Est Glom Filt Rate - Afr Amer 114 mL/min (>60); Estimated Creatinine Clearance 77.34 ml/min; Globulin 3.1 g/dL (2.2-4.2); Glucose 183 mg/dL (74-106); Potassium 3.2 mmol/L (3.5-5.1); Protein, Total 5.8 g/dL (6.4-8.2); Sodium Level 138 mmol/L (136-145)
[2018-08-03 14:40] LABS: Amphetamine Urine VISTA NEGATIVE (<1000 ng/mL); Barbiturate Urine VISTA NEGATIVE (< 200 ng/mL); Benzodiazepine Urine VISTA NEGATIVE (< 200 ng/mL); Cocaine Urine VISTA NEGATIVE (< 300 ng/mL); Ecstacy Urine VISTA NEGATIVE (< 500 ng/mL); Methadone Urine VISTA NEGATIVE (< 300 ng/mL); PCP Urine VISTA NEGATIVE (< 25 ng/mL); THC Urine VISTA NEGATIVE (< 50 ng/mL); Vista UDS pH Range 6
[2018-08-03] MEDS: Smz/Tmp Ds Tablet 1 TABLET PO (15:14)
[2018-08-03 16:11] VITALS: RESP 18
[2018-08-03 17:02] VITALS: RESP 18
--- NOTE | 2018-08-03 19:51 | NURSING ---
ACCEPTED TO [facility] BY DR. GR [phone] REPORT
[2018-08-03 20:43] VITALS: BP 104/64; PULSE 70; RESP 16; O2SAT 96
[2018-08-03 21:23] VITALS: RESP 16
== END 2018-08-03 21:33 ==
PROVIDERS: Emergency Provider Emergency Medicine; Family Provider Family Medicine Geriatric Medicine; PCP Family Medicine Geriatric Medicine
DX: F32.9 Major depressive disorder, single episode, unspecified (principal); R45.851 Suicidal ideations; N39.0 Urinary tract infection, site not specified; Z79.02 Long term (current) use of 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/antiplatelets; Z79.82 Long term (current) use of aspirin; Z79.4 Long term (current) use of insulin; Z79.899 Other long term (current) drug therapy
CPT/HCPCS: 80053; 80307; 81001; 84484; 85025; 93005; 99285; A4216

== ENCOUNTER → 2018-11-15 14:21 | Outpatient (CLI) | payer MEDICARE, SELFPAY ==
[2016-07-13 11:45] VITALS: BMI 31.4
[2018-11-15 17:41] LABS: Absolute Lymphocyte Count 2.05 X10^3/uL (0.83-4.51); Absolute Neutrophil Count 3.5 X10^3/uL (2.0-7.7); Basophil# 0.14 X10^3/uL; Basophil% 2.1 % (0-1); Eosinophil# 0.24 X10^3/uL; Eosinophils% 3.6 % (0-5); Hematocrit 45.3 % (37-47); Hemoglobin 14.8 g/dL (12.0-15.0); Lymphocyte # 2.05 X10^3/ul (4.0); Mean Corp Hgb Conc 32.7 g/dL (32-36); Mean Corpuscular Hgb 28.1 pg (27.0-32.0); Mean Platelet Vol. 10.2 fl (6.2-12.0); Monocyte# 0.62 X10^3/uL; Monocyte% 9.4 % (0-10); NRBC Flagged by Analyzer 0 % (0-5); Neutrophil # 3.54 X10^3/uL (2.7-7.7); Neutrophil % 53.6 % (47-70); Platelet Count 236 K/mm3 (150-450); RBC Distribution Width CV 12.9 % (11.6-14.6); RBC Distribution Width SD 40.2 fl (35.1-43.9); Red Blood Count 5.27 M/mm3 (4.2-5.4); White Blood Count 6.6 K/mm3 (4.4-11.0)
[2018-11-15 18:07] LABS: Vitamin D,25 Hydroxy 41.9 ng/mL (29.95-100.01)
[2018-11-15 18:13] LABS: AST(SGOT) 36 U/L (15-37); Alanine Aminotransfer ALT/SGPT 85 U/L (13-56); Albumin, Serum 3.3 g/dL (3.2-5.0); Alkaline Phosphatase 149 U/L (45-117); Anion Gap 11 (5-15); BUN 16 mg/dL (7-18); BUN/Creat Ratio 20.9 RATIO (10-20); Calcium,Total 9.3 mg/dL (8.5-10.1); Chloride 106 mmol/L (98-107); Creatinine, Serum 0.77 mg/dL (0.55-1.02); EST Glomerular Filtration Rate 81 mL/min (>60); Est Glom Filt Rate - Afr Amer 98 mL/min (>60); Globulin 3.3 g/dL (2.2-4.2); Glucose 96 mg/dL (74-106); Potassium 3.7 mmol/L (3.5-5.1); Protein, Total 6.6 g/dL (6.4-8.2); Sodium Level 140 mmol/L (136-145); Thyroid Stim Hormone (TSH) 1.33 uIU/mL (0.358-3.74)
== END ==
PROVIDERS: Family Provider Family Medicine Geriatric Medicine; PCP Family Medicine Geriatric Medicine; Visit Provider Family Medicine Geriatric Medicine
DX: E11.9 Type 2 diabetes mellitus without complications (principal); I10 Essential (primary) hypertension; E55.9 Vitamin D deficiency, unspecified
CPT/HCPCS: 36415; 80053; 82306; 84443; 85025

== ENCOUNTER → 2019-04-05 13:24 | Outpatient (CLI) | payer MEDICARE, SELFPAY ==
[2016-07-13 11:45] VITALS: BMI 31.4
[2019-04-05 17:19] LABS: Absolute Lymphocyte Count 1.44 X10^3/uL (0.83-4.51); Absolute Neutrophil Count 3.6 X10^3/uL (2.0-7.7); Basophil# 0.11 X10^3/uL; Basophil% 1.9 % (0-1); Eosinophils% 3.4 % (0-5); Hematocrit 42.1 % (37-47); Hemoglobin 13.4 g/dL (12.0-15.0); Lymphocyte # 1.44 X10^3/ul (4.0); Lymphocyte % 24.6 % (19-41); Mean Corp Hgb Conc 31.8 g/dL (32-36); Mean Corpuscular Volume 87.9 fL (81-99); Mean Platelet Vol. 10.6 fl (6.2-12.0); Monocyte# 0.51 X10^3/uL; Monocyte% 8.7 % (0-10); NRBC Flagged by Analyzer 0 % (0-5); Neutrophil # 3.57 X10^3/uL (2.7-7.7); Neutrophil % 61.1 % (47-70); Platelet Count 246 K/mm3 (150-450); RBC Distribution Width CV 14.4 % (11.6-14.6); RBC Distribution Width SD 46.2 fl (35.1-43.9); Red Blood Count 4.79 M/mm3 (4.2-5.4); White Blood Count 5.9 K/mm3 (4.4-11.0)
[2019-04-05 17:31] LABS: Vitamin D,25 Hydroxy 33.1 ng/mL (29.95-100.01)
[2019-04-05 17:41] LABS: AST(SGOT) 36 U/L (15-37); Alanine Aminotransfer ALT/SGPT 49 U/L (13-56); Albumin, Serum 3.3 g/dL (3.2-5.0); Alkaline Phosphatase 134 U/L (45-117); Anion Gap 7 (5-15); BUN 15 mg/dL (7-18); BUN/Creat Ratio 19.5 RATIO (10-20); Calcium,Total 8.8 mg/dL (8.5-10.1); Chloride 108 mmol/L (98-107); Creatinine, Serum 0.77 mg/dL (0.55-1.02); EST Glomerular Filtration Rate 80 mL/min (>60); Est Glom Filt Rate - Afr Amer 97 mL/min (>60); Globulin 3.2 g/dL (2.2-4.2); Glucose 158 mg/dL (74-106); Potassium 3.7 mmol/L (3.5-5.1); Protein, Total 6.5 g/dL (6.4-8.2); Sodium Level 138 mmol/L (136-145)
== END ==
PROVIDERS: Family Provider Family Medicine Geriatric Medicine; PCP Family Medicine Geriatric Medicine; Visit Provider Family Medicine Geriatric Medicine
DX: E11.9 Type 2 diabetes mellitus without complications (principal); E55.9 Vitamin D deficiency, unspecified; I10 Essential (primary) hypertension
CPT/HCPCS: 36415; 80053; 82306; 84443; 85025

== ENCOUNTER 2019-09-20 11:05 | Observation (INO) | payer MEDICARE, MEDICAID, SELFPAY ==
[2016-07-13 11:45] VITALS: BMI 31.4
[2019-08-23 09:14] VITALS: BMI 22.4
[2019-09-20] VITALS (9 sets, daily range): BP systolic 85–112; BP diastolic 51–67; PULSE 72–98; RESP 14–19; TEMP 36.4–36.7; O2SAT 95–98; BMI 22.6
--- NOTE | 2019-09-20 11:21 | RAD_ITS ---
STUDY: X-RAY CHEST REASON FOR EXAM: Female, 63 years old. CHEST PAIN TECHNIQUE: Single AP portable view of the chest. COMPARISON: Comparison is made with prior examination dated March 03, 2018. FINDINGS: EKG electrodes are seen. The lungs are clear and expanded. There is no demonstrated pleural abnormality. Normal size heart. Normal mediastinum and sara. Normal visualized pulmonary arteries. Normal visualized aortic arch and descending thoracic aorta. There are diffuse degenerative changes of the visualized thoracic spine. Levoscoliosis. Presents of prior laminectomy and fusion of the lower cervical spine. There is no demonstrated abnormality of the visualized soft tissue structures of the upper abdomen. RAD/Chest 1 View (Portable) IMPRESSION: No acute abnormality is seen. Electronically Signed: Daljit Jordan, at 12:37 EDT , Service support ,
--- NOTE | 2019-09-20 11:21 | EKG12_ITS ---
Test Reason : CP Blood Pressure : / mmHG Vent. Rate : 100 BPM Atrial Rate : 100 BPM P-R Int : 164 ms QRS Dur : 090 ms QT Int : 334 ms P-R-T Axes : 040 -75 069 degrees QTc Int : 430 ms Normal sinus rhythm Left axis deviation Inferior infarct , age undetermined Anterolateral infarct , age undetermined Abnormal ECG Confirmed by JURGEN AARON ([id number]), map editor ANA MEDRANO ([id number]) on 09/22/2019 2:33:14 PM Referred By: Confirmed By:JURGEN AARON
[2019-09-20 11:39] LABS: Absolute Lymphocyte Count 2.31 X10^3/uL (0.83-4.51); Absolute Neutrophil Count 6.3 X10^3/uL (2.0-7.7); Basophil# 0.17 X10^3/uL; Basophil% 1.7 % (0-1); Eosinophil# 0.48 X10^3/uL; Eosinophils% 4.7 % (0-5); Hematocrit 48.4 % (37-47); Hemoglobin 15.5 g/dL (12.0-15.0); Lymphocyte # 2.31 X10^3/ul (4.0); Lymphocyte % 22.8 % (19-41); Mean Corpuscular Hgb 27.9 pg (27.0-32.0); Mean Corpuscular Volume 87.1 fL (81-99); Mean Platelet Vol. 9.4 fl (6.2-12.0); Monocyte# 0.84 X10^3/uL; Monocyte% 8.3 % (0-10); NRBC Flagged by Analyzer 0 % (0-5); Neutrophil # 6.28 X10^3/uL (2.7-7.7); Neutrophil % 62.2 % (47-70); Platelet Count 275 K/mm3 (150-450); RBC Distribution Width CV 13.8 % (11.6-14.6); RBC Distribution Width SD 44.1 fl (35.1-43.9); Red Blood Count 5.56 M/mm3 (4.2-5.4); White Blood Count 10.1 K/mm3 (4.4-11.0)
[2019-09-20 11:56] LABS: Anion Gap 7 (5-15); BUN 15 mg/dL (7-18); Calcium,Total 9.8 mg/dL (8.5-10.1); Chloride 99 mmol/L (98-107); Creatinine, Serum 0.83 mg/dL (0.55-1.02); EST Glomerular Filtration Rate 73 mL/min (>60); Est Glom Filt Rate - Afr Amer 89 mL/min (>60); Estimated Creatinine Clearance 61.62 ml/min; Glucose 315 mg/dL (74-106); Potassium 4.2 mmol/L (3.5-5.1); Sodium Level 131 mmol/L (136-145)
[2019-09-20] MEDS: fentaNYL 100 MCG/2 ML Ampul 50 MCG IV (12:14)
--- NOTE | 2019-09-20 12:39 | ED.VISSUMM ---
- ER Visit Summary Date of Service: 09/20/19 Chief Complaint: Chest pain History of Present Illness: The patient is a 63 F with chest pain for 1.5 hours. It is retrosternal. Associated with cold sweats. Patient has a history of coronary disease. She has a stent to her LAD laced in 2015. She had an unremarkable stress test that showed old changes and ejection fraction of 54% in early 2018. She takes aspirin and Plavix among her other medications. She is not on other blood thinners. She had A. fib on her EMS EKG at a rate of 150 approximately. Physical Examination: Afebrile and vital signs unremarkable. Heart rate 98. Heart regular. Lungs clear. Abdomen soft. Extremities nontender. Skin unremarkable. Test Results: EKG shows sinus rhythm at a rate of 100 with nonspecific changes. Hemoglobin 15.5, sodium 131, glucose 315, troponin normal, chest x-ray normal. Emergency Department Course and Treatment: Patient had aspirin and nitroglycerin per EMS. Her rate is now controlled without any intervention. She received fentanyl for pain. She was discussed with Dr. salinas. Patient will need stress testing. She may undergo stress testing if her work-up remains unremarkable. If there are any abnormalities or changes, or abnormal findings on her stress test, she may need cardiac catheterization. Hospitalist was contacted. Treatment Plan: As above Disposition: PCU observation Impression: Chest pain, atrial fib on EMS EKG This note was generated with [employer] dictation software. It may contain incorrect words, spelling, and punctuation that were not noted in review of the chart prior to signing ED Disposition - Plan for ED Patient: Referrals: Matthew Noble Chi, MD [Primary Care Provider] -
--- NOTE | 2019-09-20 13:25 | EKG12_ITS ---
Test Reason : CP ADMISSION Blood Pressure : / mmHG Vent. Rate : 079 BPM Atrial Rate : 079 BPM P-R Int : 156 ms QRS Dur : 090 ms QT Int : 376 ms P-R-T Axes : 062 -77 076 degrees QTc Int : 431 ms Normal sinus rhythm Left axis deviation Inferior infarct ,age undetermined Anteroseptal infarct (cited on or before 03-AUG-2018), age undetermined Abnormal ECG Confirmed by CATHERINE WITT, GRIS ([id number]), order editor ANA MEDRANO ([id number] on 09/22/2019 2:59:25 PM Referred By: JUAN PABLO Confirmed By:GRIS ALEXANDER MD
--- NOTE | 2019-09-20 15:55 | PCM.HP.STD ---
<Malini Bhat - Last Filed: 09/20/19 16:30> Problem List (1) Major depression Status: Chronic (2) Atherosclerotic heart disease of the [place] coronary artery without angina pectoris Status: Chronic Qualifiers: [place] vs. transplanted heart: [place] heart Qualified Code(s): I25.10 - Atherosclerotic heart disease of [place] coronary artery without angina pectoris (3) History of ST elevation myocardial infarction (STEMI) Status: Resolved (4) Old anterior wall myocardial infarction Status: Chronic (5) History of coronary artery stent placement Status: Chronic Comment: PCI-aspiration qxhebhoqvyww-WLC-mig LAD 3.0 mm x 18 mm Resolute Stent and POBA-Mid D2 04/08/16 (6) Ischemic cardiomyopathy Status: Chronic (7) Chronic systolic (congestive) heart failure Status: Chronic (8) Essential (primary) hypertension Status: Chronic (9) Typical atrial flutter Status: Chronic (10) Paroxysmal atrial fibrillation Status: Chronic (11) Nicotine abuse Status: Chronic (12) Hyperlipemia Status: Chronic Qualifiers: Hyperlipidemia type: pure hypercholesterolemia Qualified Code(s): E78.00 - Pure hypercholesterolemia, unspecified; E78.0 - Pure hypercholesterolemia History of Present Illness Date of Admission: 09/20/19 Chief Complaint: Chest pain. The patient is a 63 year old F who presents emergency room due to chest pain. Patient reports chest pain began around 930 this morning and woke her up from her sleep. She describes a crushing/pressure type of pain with associated cold sweats. She took a baby aspirin and 1 nitro without improvement in symptoms and called the squad. She reports the squad gave her additional aspirin and nitro and her pain was still not relieved. She reports she was given fentanyl in the emergency room and her pain is now resolved. She denies associated shortness of breath, palpitations. She has a past medical history of CAD with history of PCI, cardiomyopathy, history of ventricular thrombus, paroxysmal atrial fibrillation with implantable loop recorder placement, BRYAN, type 2 diabetes mellitus, chronic COPD, hypertension, hyperlipidemia, iron deficiency anemia, history of severe depression with history of suicidal ideations, tobacco dependence. Past Medical History Past Medical History (Chronic Problems): Chronic Problems (Last Reviewed 08/23/19 @ 11:[address] Elias Butler MD) Major depression (Chronic) Atherosclerotic heart disease of [place] coronary artery without angina pectoris (Chronic) Old anterior wall myocardial infarction (Chronic 04/08/16) History of coronary artery stent placement (Chronic 04/08/16) PCI-aspiration yuhmwpcefhvn-MMO-qng LAD 3.0 mm x 18 mm Resolute Stent and POBA-Mid D2 04/08/16 Ischemic cardiomyopathy (Chronic) Chronic systolic (congestive) heart failure (Chronic) Essential (primary) hypertension (Chronic) Typical atrial flutter (Chronic) Paroxysmal atrial fibrillation (Chronic) Nicotine abuse (Chronic) Hyperlipemia (Chronic) Medical History: Medical History (Last Reviewed 08/23/19 @ 11:[address] Elias Butler MD) Major depression (Chronic) F32.9 Atherosclerotic heart disease of [place] coronary artery without angina pectoris (Chronic) I25.[address] elevation myocardial infarction (STEMI) (Resolved) I25.2 Old anterior wall myocardial infarction (Chronic) Onset Date: 04/08/16 I25.2 Ischemic cardiomyopathy (Chronic) I25.5 Chronic systolic (congestive) heart failure (Chronic) I50.22 Essential (primary) hypertension (Chronic) I10 Typical atrial flutter (Chronic) I48.3 Paroxysmal atrial fibrillation (Chronic) I48.0 Nicotine abuse (Chronic) Z72.0 Anxiety F41.9 COPD (chronic obstructive pulmonary disease) J44.9 Cervical spinal stenosis M48.02 Diabetes mellitus type 2 in nonobese E11.9 Frequent falls R29.6 Hypokalemia E87.6 IBS (irritable bowel syndrome) K58.9 Left ventricular hypertrophy I51.7 Multiple sclerosis G35 BRYAN (obstructive sleep apnea) G47.33 RLS (restless legs syndrome) G25.81 Radiculitis, thoracic M54.14 Suicidal ideation R45.851 Apical mural thrombus with acute LA I21.29 Hypothermia T68.XXXA Hypovolemic shock R57.1 Non-rheumatic tricuspid valve insufficiency (Resolved) I36.1 Syncope R55 Takotsubo syndrome I51.81 Acute renal failure (Inactive) Dehydration (Inactive) E86.0 Hypomagnesemia (Inactive) E83.42 Hyponatremia (Inactive) E87.1 Iron deficiency (Inactive) E61.1 Irritable bowel syndrome with diarrhea (Inactive) K58.0 Menopausal disorder (Inactive) N95.9 Metabolic encephalopathy (Inactive) G93.41 due to acute renal failure and overmedication Vitamin B12 deficiency (Inactive) E53.8 Allergies indomethacin [From Indocin] Allergy (Verified 08/23/19 09:15) Hives indomethacin sodium [From Indocin] Allergy (Verified 08/23/19 09:15) Hives iodine Allergy (Verified 08/23/19 09:15) Hives propoxyphene napsylate [From Darvocet-N] Allergy (Verified 08/23/19 09:15) Out of control aripiprazole [From Abilify] Adverse Reaction (Verified 09/20/19 13:08) Other drool uncontrollably aspirin Adverse Reaction (Verified 08/23/19 09:15) Upset Stomach when taken in high doses clindamycin Adverse Reaction (Verified 08/23/19 09:15) Nausea metformin Adverse Reaction (Verified 08/23/19 09:15) Other IT CAUSES MY KIDNEYS TO DO WEIRD THINGS sumatriptan [From Imitrex] Adverse Reaction (Verified 08/23/19 09:15) Vomiting Home Medications: Ambulatory Orders Medication Instructions Recorded Aspirin E.C. [Ecotrin] 81 mg PO DAILY@0800 10/21/16 Glimepiride [Amaryl] 4 mg PO BID 10/21/16 Clopidogrel Bisulfate [Plavix] 75 mg PO DAILY 05/18/17 Potassium Chloride [K-Dur] 20 meq PO DAILY 10/06/17 Sucralfate [Carafate] 1 gm PO 4X/DAY 10/19/17 Albuterol Inhaler [Ventolin Hfa 2 puff INHALATION Q6H PRN PRN 10/23/17 (SP)] Cholecalciferol (Vitamin D3) 2,000 unit PO DAILY 10/23/17 [Vitamin D3] Pantoprazole Sodium [Protonix] 40 mg PO QHS 11/23/17 ferrous sulfate 325 mg (65 mg 325 mg PO DAILY tab 12/18/17 iron) tablet Rosuvastatin Calcium [Crestor] 40 mg PO QHS 01/06/18 carvedilol 3.125 mg tablet 3.125 mg PO BID #60 tab 11/10/18 lisinopril 2.5 mg tablet 2.5 mg PO DAILY #30 tab 08/16/19 isosorbide mononitrate 30 mg 30 mg PO DAILY #30 tab 04/22/20 tablet,extended release 24 hr hydroxyzine HCl 50 mg tablet 50 mg PO TID tab 08/21/19 ropinirole 0.5 mg tablet 1 mg PO QHS tab 08/21/19 nitroglycerin 0.4 mg sublingual 0.4 mg SUBLINGUAL ONCE #25 tab 08/23/19 tablet Doxepin HCl [Sinequan] 20 mg PO DAILY 09/20/19 Estrogen,Con/M-Progest Acet 1 tab PO DAILY 09/20/19 [Prempro 0.625-2.5 MG Tablet] Magnesium Oxide [Mag-Ox 400] 400 mg PO DAILY 09/20/19 Promethazine HCl 25 mg PO Q6H PRN PRN 09/20/19 Teriflunomide [Aubagio] 14 mg PO DAILY 09/20/19 Venlafaxine HCl [Venlafaxine HCl 37.5 mg PO DAILY 09/20/19 ER] Surgical History: Surgical History (Last Reviewed 08/23/19 @ 11:[address] Elias Butler MD) History of coronary artery stent placement (Chronic) Onset Date: 04/08/16 Z95.5 PCI-aspiration prvkprxrdild-JEQ-ubz LAD 3.0 mm x 18 mm Resolute Stent and POBA-Mid D2 04/08/16 History of loop recorder Onset Date: 06/2014 Z98.890 History of amputation of left great toe Z89.412 staph infection History of back surgery Z98.890 History of carpal tunnel release of both wrists Z98.890 History of cervical discectomy Z98.890 History of left knee surgery Z98.890 torn meniscus repair x 2 History of tonsillectomy and adenoidectomy Z98.890 History of tubal ligation Z98.51 Lower limb amputation, great toe Z89.419 Surgical History: adenoidectomy, angioplasty - Cardiac stent, tonsillectomy, - - L foot great toe ampuation, Back surgery x 3, L carpal tunnel surgery x 2, R carpal tunnel surgery x 1, R thumb reconstructive surgery[facility] 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 Lives: Alone Smoking Status: Current every day smoker Alcohol: None Drugs: None - *Family History Maternal Family History: Family History (Last Reviewed 09/20/19 @ 16:14 by JAYRO Mckeon) Father Cancer Mother Cancer History Items: Cancer - mother pancreatic ca Paternal Family History: Family History (Last Reviewed 09/20/19 @ 16:14 by JAYRO Mckeon) Father Cancer Mother Cancer History Items: Cancer - father lung ca., - - Lung cancer Review of Systems Constitutional: Denies: Chills, Fever, Weight Change HEENT: Denies: Head Aches, Sinus Congestion, Sinus Drainage Cardiovascular: Reports: Chest Pain. Denies: Light Headedness, Syncope Respiratory: Denies: Cough, Shortness of breath at rest, Sputum production Gastrointestinal: Denies: Abdominal Pain, Nausea, Vomiting Genitourinary: Denies: Dysuria Musculoskeletal: Denies: Joint Pain, Joint Tenderness Skin: Denies: Rash, Wounds Neurological: Denies: Numbness, Tingling, Focal weakness Psychiatric: Denies: Anxiety, Depression, Homicidal Ideations, Suicidal Ideations Hematologic/ Lymphatic: Denies: Easy Bruising, Easy Bleeding VTE Information - Inpt Only VTE Present on Admission: No VTE Mechan Device Prophylaxis: None VTE Pharm Prophylaxis ordered?: Yes - Physical Exam Vitals/I&O's: Vital Signs Temp Pulse Resp BP Pulse Ox 97.8 F 79 18 85/58 L 96 09/20/19 15:00 09/20/19 15:03 09/20/19 15:00 09/20/19 15:00 09/20/19 15:00 Oxygen Delivery Method Room Air Weight: 136 lb 3.931 oz Body Mass Index (BMI) 22.6 Finger Stick Blood Glucose 151 General: Alert, Oriented x3, Cooperative HEENT: Atraumatic, PERRLA, EOMI, Normocephalic Neck: Supple, No JVD, Negative Carotid Bruits Lungs: Clear to auscultation, Normal air movement Cardiovascular: Regular rate, Regular Rhythm, Normal S1, Normal S2, No murmurs Abdomen: Bowel Sounds Present, Soft, Non Tender, Non-Distended Extremities: No clubbing, No cyanosis, No edema, Capillary Refill Less than 3 Seconds Skin: No rashes, No breakdown Musculoskeletal: No Tenderness to Palpation of Joints or Extremities Neurological: Cranial nerves II-XII grossly intact, Neuro grossly intact Psych/Mental Status: Normal Affect, Appropriate Laboratory Results 09/20/19 11:32: WBC 10.1, RBC 5.56 H, Hgb 15.5 H, Hct 48.4 H, MCV 87.1, MCH 27.9, MCHC 32.0, RDW Std Deviation 44.1 H, RDW Coeff of [place] 13.8, Plt Count 275, MPV 9.4, Immature Gran % (Auto) 0.300, Neut % (Auto) 62.2, Lymph % (Auto) 22.8, [place] % (Auto) 8.3, Eos % (Auto) 4.7, Baso % (Auto) 1.7 H, Absolute Neuts (auto) 6.3, Absolute Lymphs (auto) 2.31, Nucleated RBC % 0 09/20/19 11:32: Sodium 131 L, Potassium 4.2, Chloride 99, Carbon Dioxide 25.0, Anion Gap 7, BUN 15, Creatinine 0.83, Estim Creat Clear Calc 61.62, Est GFR (MDRD) Af Amer 89, Est GFR (MDRD) Non-Af 73, BUN/Creatinine Ratio 18.0, Glucose 315 H, Calcium 9.8, Troponin I < 0.015 09/20/19 14:34: Troponin I 0.033 Current Medications Acetaminophen (Tylenol) 650 mg PO Q6H PRN PRN PRN Reason: Pain Score 1-10/Temp > 100.7 F Dextrose (D50w Syringe) 0 gm IV X1 PRN; Protocol PRN Reason: Hypoglycemia Glucagon () 1 mg IM .X1 PRN PRN Reason: Hypoglycemia Sodium Chloride () 250 mls @ 15 mls/hr IV .[id number] PRN PRN Reason: Saline Flush Sodium Chloride () 250 mls @ 15 mls/hr IV .[id number] PRN PRN Reason: Additional IVPB Infusion Insulin Human Lispro (Humalog Kwikpen (Bkc)) 0 unit SC ACHS [facility]I; Protocol Melatonin (Melatonin) 3 mg PO QHS PRN PRN PRN Reason: INSOMNIA Nitroglycerin (Nitrostat) 0.4 mg SUBLINGUAL Q5M PRN PRN Reason: CARDIAC/CHEST PAIN Nutritional Formula (Lactose Free) (Glucerna Shake) 120 ml PO TIDCM [facility] Ondansetron HCl (Zofran) 4 mg IV Q8H PRN PRN PRN Reason: NAUSEA/VOMITING Sodium Chloride () 10 - 40 ml IV UD PRN PRN Reason: SALINE FLUSH Assessment/Plan All Active Problems (Last Reviewed 08/23/19 @ 11:[address] Elias Butler MD) History of ST elevation myocardial infarction (STEMI) (Resolved) Acute ST segment elevation LA (Resolved) Chest pain (Resolved) Chest pain (Resolved) Non-rheumatic tricuspid valve insufficiency (Resolved) STEMI (ST elevation myocardial infarction) (Resolved) Shortness of breath (Resolved) Takotsubo cardiomyopathy (Resolved) Takotsubo cardiomyopathy (Resolved) 1. Chest pain, rule out ACS-EKG without evidence of acute ischemia. Initial troponin negative. Trend enzymes. Plan for stress test in a.m. 2. CAD with history of PCI/cardiomyopathy/history of ventricular thrombus- Follows with Dr. Butler. Continue aspirin, Plavix, carvedilol, statin, lisinopril, isosorbide. 3. Paroxysmal atrial fibrillation-implantable loop recorder in place. No significant abnormalities noted on recent office visit. 4. BRYAN-noncompliant with CPAP. 5. Type 2 diabetes eybkxphx-Hmvh-Oawno with sliding scale insulin. 6. Chronic COPD-no exacerbation. As needed albuterol aerosol. 7. Hypertension-stable, continue carvedilol, isosorbide, lisinopril. 8. Hyperlipidemia-continue statin. 9. Iron deficiency anemia-continue iron supplementation. 10. History of severe depression/suicidal ideations-currently stable. 11. Tobacco dependence- encouraged cessation. DVT prophylaxis- Lovenox sc This patient was seen by JAYRO Mckeon under the supervision of Dr. Lin. <Filiebrto Lin F - Last Filed: 09/20/19 17:53> History of Present Illness The patient is a 63 year old F [] Past Medical History Medical History: Medical History (Last Reviewed 08/23/19 @ 11:[address] Elias Butler MD) Major depression (Chronic) F32.9 Atherosclerotic heart disease of [place] coronary artery without angina pectoris (Chronic) I25.[address] elevation myocardial infarction (STEMI) (Resolved) I25.2 Old anterior wall myocardial infarction (Chronic) Onset Date: 04/08/16 I25.2 Ischemic cardiomyopathy (Chronic) I25.5 Chronic systolic (congestive) heart failure (Chronic) I50.22 Essential (primary) hypertension (Chronic) I10 Typical atrial flutter (Chronic) I48.3 Paroxysmal atrial fibrillation (Chronic) I48.0 Nicotine abuse (Chronic) Z72.0 Anxiety F41.9 COPD (chronic obstructive pulmonary disease) J44.9 Cervical spinal stenosis M48.02 Diabetes mellitus type 2 in nonobese E11.9 Frequent falls R29.6 Hypokalemia E87.6 IBS (irritable bowel syndrome) K58.9 Left ventricular hypertrophy I51.7 Multiple sclerosis G35 BRYAN (obstructive sleep apnea) G47.33 RLS (restless legs syndrome) G25.81 Radiculitis, thoracic M54.14 Suicidal ideation R45.851 Apical mural thrombus with acute LA I21.29 Hypothermia T68.XXXA Hypovolemic shock R57.1 Non-rheumatic tricuspid valve insufficiency (Resolved) I36.1 Syncope R55 Takotsubo syndrome I51.81 Acute renal failure (Inactive) Dehydration (Inactive) E86.0 Hypomagnesemia (Inactive) E83.42 Hyponatremia (Inactive) E87.1 Iron deficiency (Inactive) E61.1 Irritable bowel syndrome with diarrhea (Inactive) K58.0 Menopausal disorder (Inactive) N95.9 Metabolic encephalopathy (Inactive) G93.41 due to acute renal failure and overmedication Vitamin B12 deficiency (Inactive) E53.8 Allergies indomethacin [From Indocin] Allergy (Verified 08/23/19 09:15) Hives indomethacin sodium [From Indocin] Allergy (Verified 08/23/19 09:15) Hives iodine Allergy (Verified 08/23/19 09:15) Hives propoxyphene napsylate [From Darvocet-N] Allergy (Verified 08/23/19 09:15) Out of control aripiprazole [From Abilify] Adverse Reaction (Verified 09/20/19 13:08) Other drool uncontrollably aspirin Adverse Reaction (Verified 08/23/19 09:15) Upset Stomach when taken in high doses clindamycin Adverse Reaction (Verified 08/23/19 09:15) Nausea metformin Adverse Reaction (Verified 08/23/19 09:15) Other IT CAUSES MY KIDNEYS TO DO WEIRD THINGS sumatriptan [From Imitrex] Adverse Reaction (Verified 08/23/19 09:15) Vomiting Surgical History: Surgical History (Last Reviewed 08/23/19 @ 11:[address] Elias Butler MD) History of coronary artery stent placement (Chronic) Onset Date: 04/08/16 Z95.5 PCI-aspiration dcdwvunkbqcu-FLO-bzv LAD 3.0 mm x 18 mm Resolute Stent and POBA-Mid D2 04/08/16 History of loop recorder Onset Date: 06/2014 Z98.890 History of amputation of left great toe Z89.412 staph infection History of back surgery Z98.890 History of carpal tunnel release of both wrists Z98.890 History of cervical discectomy Z98.890 History of left knee surgery Z98.890 torn meniscus repair x 2 History of tonsillectomy and adenoidectomy Z98.890 History of tubal ligation Z98.51 Lower limb amputation, great toe Z89.419 - *Family History Maternal Family History: Family History (Last Reviewed 09/20/19 @ 16:14 by JAYRO Mckeon) Father Cancer Mother Cancer Paternal Family History: Family History (Last Reviewed 09/20/19 @ 16:14 by JAYRO Mckeon) Father Cancer Mother Cancer - Physical Exam Vitals/I&O's: Vital Signs Temp Pulse Resp BP Pulse Ox 97.5 F L 75 16 103/65 95 09/20/19 16:45 09/20/19 16:45 09/20/19 16:45 09/20/19 16:45 09/20/19 16:45 Oxygen Delivery Method Room Air Weight: 136 lb 3.931 oz Body Mass Index (BMI) 22.6 Finger Stick Blood Glucose 151 Laboratory Results 09/20/19 11:32: WBC 10.1, RBC 5.56 H, Hgb 15.5 H, Hct 48.4 H, MCV 87.1, MCH 27.9, MCHC 32.0, RDW Std Deviation 44.1 H, RDW Coeff of Ye[place] 13.8, Plt Count 275, MPV 9.4, Immature Gran % (Auto) 0.300, Neut % (Auto) 62.2, Lymph % (Auto) 22.8, [place] % (Auto) 8.3, Eos % (Auto) 4.7, Baso % (Auto) 1.7 H, Absolute Neuts (auto) 6.3, Absolute Lymphs (auto) 2.31, Nucleated RBC % 0 09/20/19 11:32: Sodium 131 L, Potassium 4.2, Chloride 99, Carbon Dioxide 25.0, Anion Gap 7, BUN 15, Creatinine 0.83, Estim Creat Clear Calc 61.62, Est GFR (MDRD) Af Amer 89, Est GFR (MDRD) Non-Af 73, BUN/Creatinine Ratio 18.0, Glucose 315 H, Calcium 9.8, Troponin I < 0.015 09/20/19 14:34: Troponin I 0.033 09/20/19 16:02: POC Glucose 221 H Current Medications Acetaminophen (Tylenol) 650 mg PO Q6H PRN PRN PRN Reason: Pain Score 1-10/Temp > 100.7 F Aspirin (Ecotrin) 81 mg PO DAILY@0800 [facility] Atorvastatin Calcium (Lipitor) 80 mg PO QHS [facility] Carvedilol (Coreg) 3.125 mg PO BID [facility] Cholecalciferol (Vitamin D (25mcg)) [facility] Clopidogrel Bisulfate (Plavix) 75 mg PO DAILY [facility] Dextrose (D50w Syringe) 0 gm IV X1 PRN; Protocol PRN Reason: Hypoglycemia Doxepin HCl (Sinequan) 20 mg PO DAILY [facility] Ferrous Sulfate (Ferrous Sulfate) [facility] Glimepiride (Amaryl) [facility] Last Admin: 09/20/19 17:22 Dose: 4 mg Documented by: Glucagon () 1 mg IM .X1 PRN PRN Reason: Hypoglycemia Hydroxyzine Pamoate (Vistaril Pamoate Capsule) 50 mg PO TID [facility] Sodium Chloride () 250 mls @ 15 mls/hr IV .[id number] PRN PRN Reason: Saline Flush Sodium Chloride () 250 mls @ 15 mls/hr IV .[id number] PRN PRN Reason: Additional IVPB Infusion Insulin Human Lispro (Humalog Kwikpen (Bkc)) [address] [facility]; Protocol Last Admin: 09/20/19 16:03 Dose: 2 u Documented by: Isosorbide Mononitrate (Imdur) 30 mg PO DAILY [facility] Lisinopril (Zestril) 2.5 mg PO DAILY [facility] Magnesium Oxide (Mag-Ox 400) 400 mg PO DAILYCM [facility] Melatonin (Melatonin) 3 mg PO QHS PRN PRN PRN Reason: INSOMNIA Nitroglycerin (Nitrostat) 0.4 mg SUBLINGUAL Q5M PRN PRN Reason: CARDIAC/CHEST PAIN Non-Formulary Medication (Ropinirole Hcl) 1 mg PO QHS [facility] Non-Formulary Medication (Teriflunomide) 14 mg PO DAILY [facility] Nutritional Formula (Lactose Free) (Glucerna Shake) 120 ml PO TIDCM [facility] Last Admin: 09/20/19 16:05 Dose: 120 ml Documented by: Ondansetron HCl (Zofran) 4 mg IV Q8H PRN PRN PRN Reason: NAUSEA/VOMITING Pantoprazole Sodium (Protonix) 40 mg PO QHS [facility] Potassium Chloride (K-Dur) 20 meq PO DAILYCM [facility] Sodium Chloride () 10 - 40 ml IV UD PRN PRN Reason: SALINE FLUSH Sucralfate (Carafate) 1 gm PO 1HR_ACHS [facility] Venlafaxine HCl (Effexor Xr) 37.5 mg PO DAILY [facility] Addendum: Dr. Lin I personally examined the patient and reviewed the chart. I agree with the above. 63-year-old female with a history of previous LA and stents placed in 2016 presents with chest pain that she describes as more like a significant chest pressure bandlike across her chest with no radiation. This started at 945 and woke her up from sleep. She says the last time she had any pain this bad was with her previous heart attack. Chest x-ray was unremarkable and EKG was nonischemic. Initial troponin was normal. She was continued on all of her home meds, and she states that at this time the chest pain has resolved. Will obtain a chemical stress test in the morning and once her troponin comes back positive which point we will consult cardiology. OBSV E&M: [id number] Initial observation care L3
--- NOTE | 2019-09-20 16:00 | CASEMGMT ---
Social Work [place] N[place] inquiring if pt was current with palliative medicine. Phone call placed to [facility] and spoke with Charlene who reports pt was d/c from palliative medicine on 04/21/18 for concerns of diversion. [place] Nayak notified. WILLIAN Hardy
[2019-09-20] MEDS: Insulin Lispro 100 UNIT/ML INSULN.PEN SC ×2 (16:03→21:29)
[2019-09-20] MEDS: Glucerna Shake 120 ML LIQUID PO (16:05)
[2019-09-20 16:26] LABS: Bedside Glucose 221 mg/dL (70-110)
[2019-09-20] MEDS: Glimepiride 4 MG Tablet PO (17:22)
[2019-09-20] MEDS: Sucralfate 1 GM Tablet PO (21:25)
[2019-09-20] MEDS: Carvedilol 3.125 MG TABLET PO (21:25)
[2019-09-20] MEDS: hydrOXYzine PAM 25 MG Capsule 50 MG PO (21:26)
[2019-09-20] MEDS: Atorvastatin Calcium 80 MG Tablet PO (21:26)
[2019-09-20] MEDS: Pramipexole Di-HCl 0.5 MG Tablet PO (21:26)
[2019-09-20] MEDS: Pantoprazole Sodium 40 MG Tablet PO (21:26)
[2019-09-20 21:50] LABS: Bedside Glucose 243 mg/dL (70-110)
[2019-09-21 03:00] VITALS: PULSE 60
[2019-09-21 03:20] VITALS: BP 119/55; PULSE 61; RESP 14; TEMP 36.6; O2SAT 97
[2019-09-21 04:14] LABS: Absolute Lymphocyte Count 2.64 X10^3/uL (0.83-4.51); Absolute Neutrophil Count 4.6 X10^3/uL (2.0-7.7); Basophil# 0.11 X10^3/uL; Basophil% 1.3 % (0-1); Eosinophil# 0.39 X10^3/uL; Eosinophils% 4.5 % (0-5); Hematocrit 41.1 % (37-47); Hemoglobin 13.2 g/dL (12.0-15.0); Lymphocyte # 2.64 X10^3/ul (4.0); Lymphocyte % 30.7 % (19-41); Mean Corp Hgb Conc 32.1 g/dL (32-36); Mean Corpuscular Hgb 27.6 pg (27.0-32.0); Mean Platelet Vol. 9.1 fl (6.2-12.0); Monocyte# 0.88 X10^3/uL; Monocyte% 10.2 % (0-10); NRBC Flagged by Analyzer 0 % (0-5); Neutrophil # 4.57 X10^3/uL (2.7-7.7); Neutrophil % 53.1 % (47-70); Platelet Count 203 K/mm3 (150-450); RBC Distribution Width CV 13.5 % (11.6-14.6); RBC Distribution Width SD 42.5 fl (35.1-43.9); Red Blood Count 4.78 M/mm3 (4.2-5.4); White Blood Count 8.6 K/mm3 (4.4-11.0)
[2019-09-21 05:02] LABS: Anion Gap 6 (5-15); BUN 12 mg/dL (7-18); BUN/Creat Ratio 22.4 RATIO (10-20); Chloride 105 mmol/L (98-107); Cholesterol 81 mg/dL (200); Creatinine, Serum 0.54 mg/dL (0.55-1.02); EST Glomerular Filtration Rate 122 mL/min (>60); Est Glom Filt Rate - Afr Amer 147 mL/min (>60); Estimated Creatinine Clearance 94.71 ml/min; Glucose 115 mg/dL (74-106); High Density Lipoprotein 58 mg/dL; Potassium 3.5 mmol/L (3.5-5.1); Sodium Level 135 mmol/L (136-145); Triglycerides 66 mg/dL; Very Low Density Lipoprotein 13 mg/dL (5-40)
--- NOTE | 2019-09-21 05:55 | EKG12_ITS ---
Test Reason : AM EKG Blood Pressure : / mmHG Vent. Rate : 065 BPM Atrial Rate : 065 BPM P-R Int : 170 ms QRS Dur : 096 ms QT Int : 366 ms P-R-T Axes : 095 -53 117 degrees QTc Int : 380 ms Normal sinus rhythm Left axis deviation Septal infarct , age undetermined Inferior infarct , age undetermined Abnormal ECG When compared with ECG of 20-SEP-2019 13:18, MANUAL COMPARISON REQUIRED, DATA IS UNCONFIRMED Confirmed by JACQUELINE WITT, KASSANDRA ([id number]), editor index ANA MEDRANO ([id number]) on 09/26/2019 11:47:44 AM Referred By: JUAN PABLO Confirmed By:LILLY PHILLIPS MD
[2019-09-21 06:35] VITALS: BP 114/60; PULSE 70; RESP 14; TEMP 36.6; O2SAT 98
[2019-09-21] MEDS: hydrOXYzine PAM 25 MG Capsule 50 MG PO ×2 (06:38→12:39)
[2019-09-21] MEDS: Sucralfate 1 GM Tablet PO ×2 (06:39→10:32)
[2019-09-21] MEDS: Lisinopril 2.5 MG Tablet PO (06:40)
[2019-09-21] MEDS: Aspirin E.C. 81 MG Tablet PO (06:40)
[2019-09-21] MEDS: Clopidogrel Bisulfate 75 MG Tablet PO (06:40)
[2019-09-21] MEDS: 0.9% Saline Lock 10 ML Syringe IV ×2 (06:42→12:40)
[2019-09-21 06:47] VITALS: PULSE 63
[2019-09-21 06:56] LABS: Bedside Glucose 122 mg/dL (70-110)
--- NOTE | 2019-09-21 07:27 | STEWCON_ITS ---
Reason For Study: CHEST PAIN Stress Results Protocol: Dobutamine Stress Echo With Definity Maximum Predicted HR: 156 bpm Target HR: 133 bpm % Maximum Predicted HR: 85 % DurationHeart Rate Stage (mm:ss) (bpm) BP Dose Comment BASELINE 71 102/60 7CC DEFINITY TOTAL STAGE 1 3:46 76 122/5210.00 STAGE 2 3:00 85 122/4020.00 STAGE 3 3:00 100 102/4030.00 STAGE 4 2:54 133 102/4840.000.25 MG ATROPINE, MID CHEST PAIN RECOVERY 96 92/50 500CC BOLUS OF NORMAL SALINE GIVEN, FEELING BETTER Stress Duration: 12:40 mm:ss Maximum Stress HR: 133 bpm Baseline Echocardiogram Findings The estimated ejection fraction is 55 %. Stress Echo Wall motion Data Resting WM Intermediate WM Stress WM Resting Wall Motion Wall Motion Stress Basal anteroseptal: Mildly No regional wall motion hypokinetic. abnormalities noted. Mid-Anterior : Mildly hypokinetic. EKG Data The baseline ECG displays normal sinus rhythm. The patient was titrated from 10 mcg to a maximum of 40 mcg of dobutamine during the stress. The maximum heart rate attained was 133 beats per minute. This was 85% of maximum predicted heart rate. During dobutamine infusion, there were no ST or T wave changes noted to suggest ischemia. No arrhythmias noted. Interpretation Summary The estimated ejection fraction is 55 %. Basal anteroseptal: Mildly hypokinetic Mid-Anterior : Mildly hypokinetic Normal, adequate, dobutamine echocardiogram. Negative for ischemia by EKG and echocardiographic criteria. Patient had baseline anteroseptal hypokinesis which appeared remained the same during infusion. Patient had good contractility of all other [place]. Test terminated with attainment of target heart rate and chest discomfort. Final LVEF of 65%. Decrease sensitivity due to poor echo windows requiring Definity agent. Patient tolerated procedure well. The study was technically difficult. Contrast injection was performed. Ordering Physician: Filiberto Lin Referring Physician: FILIBERTO LIN Performed By: Kimberley Solis, MIKE, RVT
[2019-09-21 10:23] VITALS: BP 128/61; PULSE 86; RESP 16; TEMP 36.7; O2SAT 95
[2019-09-21] MEDS: Isosorbide Mononitrate 30 MG Tablet PO (10:32)
[2019-09-21] MEDS: Glimepiride 4 MG Tablet PO (10:32)
[2019-09-21] MEDS: Carvedilol 3.125 MG TABLET PO (10:32)
[2019-09-21] MEDS: Ferrous Sulfate 325 MG Tablet PO (10:32)
[2019-09-21] MEDS: Insulin Lispro 100 UNIT/ML INSULN.PEN SC (10:33)
[2019-09-21] MEDS: Venlafaxine XR 37.5 MG Capsule PO (10:33)
[2019-09-21] MEDS: Magnesium Oxide 400 MG Tablet PO (10:33)
[2019-09-21] MEDS: Acetaminophen 325 MG Tablet 650 MG PO (10:40)
[2019-09-21 10:51] LABS: Bedside Glucose 172 mg/dL (70-110)
--- NOTE | 2019-09-21 11:16 | NURSING ---
This RN called the pt's son, Lazaro and left him a voicemail with number to call back if he would like an update on his mom.
--- NOTE | 2019-09-21 11:19 | CASEMGMT ---
Social Work Pt does have a living will and health care POA on file and it names her sister Robina Burns. PRAVIN met with pt and confirmed this. Pt stating she would like to change her HCPOA and name her son Lazaro Mclean and first HCPOA and sister Robina Burns as alternate HCPOA. SW assisted pt in completing new HCPOA and Living Will naming pt son Lazaro. Copy placed on chart and original given to pt. WILLIAN Hardy
--- NOTE | 2019-09-21 11:23 | CASEMGMT ---
Social Work SW met with pt in room and introduced self and role of SW. Pt confirms that she does have passport services and Gabriella Miller is her CM. Pt receives aid services through [employer] 4 days a week for 2 hours, M,T,W,F. She receives moms meals 14 per week and has a med alert and medication dispenser. Pt also has a RN from [place] once a week to fill med dispenser. Pt does utilize the [facility] and sees Dr. Renteria and Charlene Medina regularly. Pt also goes to [facility] about once a month. Pt plans to return home and has no concerns at this time. Phone call to Passport CM Gabriella and notified of pt admission to hospital. Plan: D/C home with [facility] services and skilled RN WILLIAN Hardy
--- NOTE | 2019-09-21 12:18 | CON.PCM_ITS ---
Problem List (1) Atherosclerotic heart disease of [place] coronary artery without angina pectoris Status: Chronic Qualifiers: [place] vs. transplanted heart: [place] heart Qualified Code(s): I25.10 - Atherosclerotic heart disease of [place] coronary artery without angina pectoris (2) History of ST elevation myocardial infarction (STEMI) Status: Resolved (3) Old anterior wall myocardial infarction Status: Chronic (4) History of coronary artery stent placement Status: Chronic Comment: PCI-aspiration [id number] LAD 3.0 mm x 18 mm Resolute Stent and POBA-Mid D2 04/08/16 (5) Ischemic cardiomyopathy Status: Chronic (6) Chronic systolic (congestive) heart failure Status: Chronic (7) Essential (primary) hypertension Status: Chronic (8) Paroxysmal atrial fibrillation Status: Chronic (9) Nicotine abuse Status: Chronic (10) Hyperlipemia Status: Chronic Qualifiers: Hyperlipidemia type: pure hypercholesterolemia Qualified Code(s): E78.00 - Pure hypercholesterolemia, unspecified; E78.0 - Pure hypercholesterolemia Reason for Consult Date of Consultation: 09/21/19 Reason for Consultation: Coronary artery disease, chest pain, indeterminate troponin, supraventricular tachycardia, hypertension, ischemic cardiomyopathy, tobacco abuse History of Present Illness: The patient is a 63 year old F, with multiple medical problems including anxiety, history of suicidal attempt, hypertension, ischemic cardiomyopathy status post acute anterior apical/inferior myocardial infarction in March 2016 requiring emergent thrombectomy and stenting of her mid LAD. Subsequent to that she had an LV apical thrombus, which was subsequently found to be resolved with subsequent echocardiograms. Patient in addition has multiple sclerosis, and has limited mobility. She was in normal health up until around 9:45 PM yesterday, when she developed midsternal chest pain and diaphoresis. She reported this was similar to her previous anginal symptoms. Initial EKG in the field showed what appeared to be a supraventricular tachycardia at a rate of 150 with old anteroseptal and apical as well as inferior myocardial infarction. No dynamic EKG changes were noted. Patient was admitted and I will with troponins x3 which were initially 0.06, 0.08, and 0.10. Her subsequent EKG showed normal sinus rhythm with old anteroseptal and inferior myocardial infarction. She underwent a dobutamine echocardiogram which showed old anterior septal wall hypokinesis and all other mcfarland contract normally. I reviewed her catheterization film which showed smooth coronary arteries of her left circumflex and right coronary artery. Unfortunate the patient continues to smoke. [] Past Medical History Allergies/Adverse Reactions: Allergies indomethacin [From Indocin] Allergy (Verified 08/23/19 09:15) Hives indomethacin sodium [From Indocin] Allergy (Verified 08/23/19 09:15) Hives iodine Allergy (Verified 08/23/19 09:15) Hives propoxyphene napsylate [From Darvocet-N] Allergy (Verified 08/23/19 09:15) Out of control aripiprazole [From Abilify] Adverse Reaction (Verified 09/20/19 13:08) Other drool uncontrollably aspirin Adverse Reaction (Verified 08/23/19 09:15) Upset Stomach when taken in high doses clindamycin Adverse Reaction (Verified 08/23/19 09:15) Nausea metformin Adverse Reaction (Verified 08/23/19 09:15) Other IT CAUSES MY KIDNEYS TO DO WEIRD THINGS sumatriptan [From Imitrex] Adverse Reaction (Verified 08/23/19 09:15) Vomiting Home Medications: Ambulatory Orders Medication Instructions Recorded Aspirin E.C. [Ecotrin] 81 mg PO DAILY@0800 10/21/16 Glimepiride [Amaryl] 4 mg PO BID 10/21/16 Clopidogrel Bisulfate [Plavix] 75 mg PO DAILY 05/18/17 Potassium Chloride [K-Dur] 20 meq PO DAILY 10/06/17 Sucralfate [Carafate] 1 gm PO 4X/DAY 10/19/17 Albuterol Inhaler [Ventolin Hfa 2 puff INHALATION Q6H PRN PRN 10/23/17 (SP)] Cholecalciferol (Vitamin D3) 2,000 unit PO DAILY 10/23/17 [Vitamin D3] Pantoprazole Sodium [Protonix] 40 mg PO QHS 11/23/17 ferrous sulfate 325 mg (65 mg 325 mg PO DAILY tab 12/18/17 iron) tablet Rosuvastatin Calcium [Crestor] 40 mg PO QHS 01/06/18 carvedilol 3.125 mg tablet 3.125 mg PO BID #60 tab 11/10/18 lisinopril 2.5 mg tablet 2.5 mg PO DAILY #30 tab 08/16/19 isosorbide mononitrate 30 mg 30 mg PO DAILY #30 tab 08/17/19 tablet,extended release 24 hr hydroxyzine HCl 50 mg tablet 50 mg PO TID tab 08/21/19 ropinirole 0.5 mg tablet 1 mg PO QHS tab 08/21/19 nitroglycerin 0.4 mg sublingual 0.4 mg SUBLINGUAL ONCE #25 tab 08/23/19 tablet Doxepin HCl [Sinequan] 20 mg PO DAILY 09/20/19 Estrogen,Con/M-Progest Acet 1 tab PO DAILY 09/20/19 [Prempro 0.625-2.5 MG Tablet] Magnesium Oxide [Mag-Ox 400] 400 mg PO DAILY 09/20/19 Promethazine HCl 25 mg PO Q6H PRN PRN 09/20/19 Teriflunomide [Aubagio] 14 mg PO DAILY 09/20/19 Venlafaxine HCl [Venlafaxine HCl 37.5 mg PO DAILY 09/20/19 ER] Past Medical History (Chronic Problems): Chronic Problems (Last Reviewed 08/23/19 @ 11:[address] Elias Butler MD) Major depression (Chronic) Atherosclerotic heart disease of [place] coronary artery without angina pectoris (Chronic) Old anterior wall myocardial infarction (Chronic 04/08/16) History of coronary artery stent placement (Chronic 04/08/16) PCI-aspiration [id number] LAD 3.0 mm x 18 mm Resolute Stent and POBA-Mid D2 04/08/16 Ischemic cardiomyopathy (Chronic) Chronic systolic (congestive) heart failure (Chronic) Essential (primary) hypertension (Chronic) Typical atrial flutter (Chronic) Paroxysmal atrial fibrillation (Chronic) Nicotine abuse (Chronic) Hyperlipemia (Chronic) Surgical History: adenoidectomy, angioplasty - Cardiac stent, tonsillectomy, - - L foot great toe ampuation, Back surgery x 3, L carpal tunnel surgery x 2, R carpal tunnel surgery x 1, R thumb reconstructive surgery. cervical spinal surgery february 27 at [facility]. Psychiatric History: Anxiety, Depression, - - Mild cognitive impairment RN TRAINING History: - - Menopausal syndrome. - *Family History Maternal Family History: Family History (Last Reviewed 09/20/19 @ 16:14 by JAYRO Mckeon) Father Cancer Mother Cancer History Items: Cancer - mother pancreatic ca Paternal Family History: Family History (Last Reviewed 09/20/19 @ 16:14 by JAYRO Mckeon) Father Cancer Mother Cancer History Items: Cancer - father lung ca., - - Lung cancer Lives: Alone Smoking Status: Current every day smoker Alcohol: None Drugs: None Review of Systems - Review of Systems General: Denies: Fever, Night Sweats, Fatigue Cardiovascular: Reports: Chest Discomfort, Chest Discomfort at Rest. Denies: Shortness of Breath, Orthopnea, PND, Peripheral Edema, Palpitations, Lightheadedness, Dizziness, Near Syncope, Syncope Respiratory: Denies: Cough, Sputum Production, Hemoptysis Gastrointestinal: Denies: Hematemesis, Hematochezia, Melena Genitourinary: Denies: Dysuria, Hematuria Skin: Denies: Rash Subjectve: Patient laying in bed, no acute distress. Objective: Vital Signs Temp Pulse Resp BP Pulse Ox 98.1 F 86 16 128/61 H 95 09/21/19 10:23 09/21/19 10:23 09/21/19 10:23 09/21/19 10:23 09/21/19 10:23 Oxygen Delivery Method Room Air Weight: 136 lb 3.931 oz Body Mass Index (BMI) 22.6 Finger Stick Blood Glucose 151 Intake and Output for Last 24 Hours 09/19/19 09/20/19 09/21/19 23:59 23:59 23:59 Intake Total 240 / 240 220 / 220 Balance 240 / 240 220 / 220 General: Awake, Alert, Oriented x 3 HEENT: PERRL, EOMI, Sclera Non Icteric Neck: Supple, Good ROM, No Lymph Node Enlargement Lungs: Clear to auscultation Cardiovascular: Regular Rhythm, Normal S1, Normal S2, No Murmurs, No Rubs, No Gallops 09/20/19 14:34: Troponin I 0.033 09/20/19 17:57: Troponin I 0.063 H 09/20/19 20:47: Troponin I 0.088 H 09/21/19 00:10: Troponin I 0.104 H 09/21/19 03:50: WBC 8.6, RBC 4.78, Hgb 13.2, Hct 41.1, MCV 86.0, MCH 27.6, MCHC 32.1, Plt Count 203, MPV 9.1, Immature Gran % (Auto) 0.200, Neut % (Auto) 53.1, Lymph % (Auto) 30.7, [place] % (Auto) 10.2 H, Eos % (Auto) 4.5, Baso % (Auto) 1.3 H , Absolute Neuts (auto) 4.6, Nucleated RBC % 0 09/21/19 03:50: Sodium 135 L, Potassium 3.5, Chloride 105, Carbon Dioxide 24.0, Anion Gap 6, BUN 12, Creatinine 0.54 L, Est GFR (MDRD) Af Amer 147, Est GFR (MDRD) Non-Af 122, BUN/Creatinine Ratio 22.4 H, Glucose 115 H, Calcium 9.0, Triglycerides 66, Cholesterol 81, LDL Cholesterol 10, VLDL Cholesterol 13, HDL Cholesterol 58 09/21/19 03:50: Troponin I 0.106 H Rhythm: EKG: ECHO: Stress Test: Cardiac Cath: PCI: CT Surgery: Holter monitor: EPS: PPM: CXR: Chest CT Scan: Assessment/Plan 1. New onset chest pain. The patient had atypical, nonexertional substernal chest pain last evening which may have been caused by supraventricular tachycardia. The patient does have a loop recorder and is seen by Giana. This was documented by EKG which subsequently transferred to normal sinus rhythm. The patient had indeterminate troponins, and previously no chest pain whatsoever over the last several months. She underwent a dobutamine echocardiogram which demonstrated baseline anteroseptal hypokinesis, but no other abnormalities in other mcfarland. At this point I would keep the patient on baby aspirin and Plavix given her history of coronary disease and LV apical thrombus. I would not recommend repeat catheterization at this time. I would however increase her Coreg to 6.25 mg p.o. twice daily in an attempt to prevent recurrent supraventricular tachycardia. 2. Tobacco abuse: I strongly recommend the patient discontinue all tobacco products. 3. Hyperlipidemia: We will defer with primary meter attendant. 4. Patient will be discharged home and follow-up with Dr. Butler. Thank you very much for the opportunity to participate in cardiac care of your patient. Consultation time took place between 1145AM and 12:25 PM. Inpatient E&M: 11998 Init Hosp L2
[2019-09-21] MEDS: Ketorolac 15 MG/ML Vial IV (12:39)
--- NOTE | 2019-09-21 12:51 | PCM.DC ---
You will use the following diet at home:: Cardiac Discharge Activity: Return to Normal Activity Call your doctor if you observe: Shortness of breath, Dizziness, Fainting spells, Chest pain Allergies/Adverse Reactions: Allergies indomethacin [From Indocin] Allergy (Verified 08/23/19 09:15) Hives indomethacin sodium [From Indocin] Allergy (Verified 08/23/19 09:15) Hives iodine Allergy (Verified 08/23/19 09:15) Hives propoxyphene napsylate [From Darvocet-N] Allergy (Verified 08/23/19 09:15) Out of control aripiprazole [From Abilify] Adverse Reaction (Verified 09/20/19 13:08) Other drool uncontrollably aspirin Adverse Reaction (Verified 08/23/19 09:15) Upset Stomach when taken in high doses clindamycin Adverse Reaction (Verified 08/23/19 09:15) Nausea metformin Adverse Reaction (Verified 08/23/19 09:15) Other IT CAUSES MY KIDNEYS TO DO WEIRD THINGS sumatriptan [From Imitrex] Adverse Reaction (Verified 08/23/19 09:15) Vomiting Medications to take at Discharge Aspirin E.C. [Ecotrin] 81 mg PO DAILY@0800 10/21/16 Glimepiride [Amaryl] 4 mg PO BID 10/21/16 Clopidogrel Bisulfate [Plavix] 75 mg PO DAILY 05/18/17 Potassium Chloride [K-Dur] 20 meq PO DAILY 10/06/17 Sucralfate [Carafate] 1 gm PO 4X/DAY 10/19/17 Albuterol Inhaler [Ventolin Hfa] 2 puff INHALATION Q6H PRN PRN 10/23/17 Cholecalciferol (Vitamin D3) [Vitamin D3] 2,000 unit PO DAILY 10/23/17 Pantoprazole Sodium [Protonix] 40 mg PO QHS 11/23/17 ferrous sulfate 325 mg (65 mg iron) tablet 325 mg PO DAILY tab 12/18/17 Rosuvastatin Calcium [Crestor] 40 mg PO QHS 01/06/18 carvedilol 3.125 mg tablet 3.125 mg PO BID #60 tab 11/10/18 lisinopril 2.5 mg tablet 2.5 mg PO DAILY #30 tab 08/16/19 isosorbide mononitrate 30 mg tablet,extended release 24 hr 30 mg PO DAILY #30 tab 08/17/19 hydroxyzine HCl 50 mg tablet 50 mg PO TID tab 08/21/19 ropinirole 0.5 mg tablet 1 mg PO QHS tab 08/21/19 nitroglycerin 0.4 mg sublingual tablet 0.4 mg SUBLINGUAL ONCE #25 tab 08/23/19 Doxepin HCl [Sinequan] 20 mg PO DAILY 09/20/19 Estrogen,Con/M-Progest Acet [Prempro 0.625-2.5 MG Tablet] 1 tab PO DAILY 09/20/19 Magnesium Oxide [Mag-Ox 400] 400 mg PO DAILY 09/20/19 Promethazine HCl 25 mg PO Q6H PRN PRN 09/20/19 Teriflunomide [Aubagio] 14 mg PO DAILY 09/20/19 Venlafaxine HCl [Venlafaxine HCl ER] 37.5 mg PO DAILY 09/20/19 Carvedilol [Coreg (Beta Marielle)] 6.25 mg PO BID #60 tab 09/21/19 The following prescriptions were given: Carvedilol [Coreg (Beta Marielle)] 6.25 mg PO BID #60 tab Transmission Status: Pending to [facility] - [place] - [id number] Primary Care Physician: Matthew Noble Chi, MD [Primary Care Provider] - Please follow up with your Primary Care Physician in: 1 Week Test Results: Test results from this visit will be discussed in further detail at your follow-up appointment, if applicable. Please Follow Up With: Fatuma Antoine PA When: 1 Week Proposed Discharge Date: 09/21/19
--- NOTE | 2019-09-21 12:52 | PCM.DC.SUM ---
<Malini Bhat - Last Filed: 09/21/19 13:00> Discharge Date and Diagnosis Date of Admission: 09/20/19 Date of Discharge: 09/21/19 - Primary Discharge Diagnosis Acute Problems: 1. Chest pain, abnormal troponin- ACS ruled out 2. CAD with history of PCI/cardiomyopathy/history of ventricular thrombus 3. Paroxysmal atrial fibrillation 4. BRYAN 5. Type 2 diabetes mellitus 6. Chronic COPD 7. Hypertension 8. Hyperlipidemia 9. Iron deficiency anemia 10. History of severe depression/suicidal ideations 11. Tobacco dependence - Secondary Discharge Diagnosis Chronic Problems: Chronic Problems (Last Reviewed 08/23/19 @ 11:[address] Elias Butler MD) Major depression (Chronic) Atherosclerotic heart disease of [place] coronary artery without angina pectoris (Chronic) Old anterior wall myocardial infarction (Chronic 04/08/16) History of coronary artery stent placement (Chronic 04/08/16) PCI-aspiration [id number] LAD 3.0 mm x 18 mm Resolute Stent and POBA-Mid D2 04/08/16 Ischemic cardiomyopathy (Chronic) Chronic systolic (congestive) heart failure (Chronic) Essential (primary) hypertension (Chronic) Typical atrial flutter (Chronic) Paroxysmal atrial fibrillation (Chronic) Nicotine abuse (Chronic) Hyperlipemia (Chronic) Hospital Course and Treatment Imaging Results: Diagnostic Data Chest X-Ray 09/20/19 11:21 IMPRESSION: No acute abnormality is seen. Electronically Signed: Daljit Jordan, at 12:37 EDT , Service support , Dr. mak- cardio Operations: None Procedures: Stress test Summary of Care Provided: The patient is a 63 year old F admitted 09/20/2019 due to chest pain. 1. Chest pain, abnormal troponin-ACS ruled out. EKG without evidence of acute ischemia. Cardiology consulted during admission. Suspects atypical chest pain may have been caused by supraventricular tachycardia. Stress echocardiogram demonstrated an EF of 55%, negative for ischemia. Carvedilol increased to 6.25 mg twice daily. Follow-up with cardiology in 1 week. 2. CAD with history of PCI/cardiomyopathy/history of ventricular thrombus- Follows with Dr. Butler. Continue aspirin, Plavix, carvedilol, statin, lisinopril, isosorbide. 3. Paroxysmal atrial fibrillation-implantable loop recorder in place. No significant abnormalities noted on recent office visit. 4. BRYAN-noncompliant with CPAP. 5. Type 2 diabetes mellitus-continue home oral regimen. 6. Chronic COPD-no exacerbation. As needed albuterol aerosol. 7. Hypertension-stable, continue carvedilol, isosorbide, lisinopril. 8. Hyperlipidemia-continue statin. 9. Iron deficiency anemia-continue iron supplementation. 10. History of severe depression/suicidal ideations-currently stable. 11. Tobacco dependence- encouraged cessation. General: Alert, Oriented x3, Cooperative HEENT: Atraumatic, PERRLA, EOMI, Normocephalic Neck: Supple, No JVD, Negative Carotid Bruits Lungs: Clear to auscultation, Normal air movement Cardiovascular: Regular rate, Regular Rhythm, Normal S1, Normal S2, No murmurs Abdomen: Bowel Sounds Present, Soft, Non Tender, Non-Distended Extremities: No clubbing, No cyanosis, No edema, Capillary Refill Less than 3 Seconds Skin: No rashes, No breakdown-multiple facial scabs of various stages due to picking Musculoskeletal: No Tenderness to Palpation of Joints or Extremities Neurological: Cranial nerves II-XII grossly intact, Neuro grossly intact Psych/Mental Status: Normal Affect, Appropriate Patient seen and examined prior to discharge. Physical assessment as noted above. Patient is stable for discharge with follow up recommendations as noted above. This patient was seen by JAYRO Mckeon under the supervision of Dr. Lin. - Physical Exam Vitals/I&O's: Vital Signs Temp Pulse Resp BP Pulse Ox 98.1 F 86 16 128/61 H 95 09/21/19 10:23 09/21/19 10:23 09/21/19 10:23 09/21/19 10:23 09/21/19 10:23 Oxygen Delivery Method Room Air Weight: 136 lb 3.931 oz Body Mass Index (BMI) 22.6 Finger Stick Blood Glucose 151 Intake and Output for Last 24 Hours 09/19/19 09/20/19 09/21/19 23:59 23:59 23:59 Intake Total 240 / 240 220 / 220 Balance 240 / 240 220 / 220 Laboratory Results 09/20/19 14:34: Troponin I 0.033 09/20/19 16:02: POC Glucose 221 H 09/20/19 17:57: Troponin I 0.063 H 09/20/19 20:47: Troponin I 0.088 H 09/20/19 21:28: POC Glucose 243 H 09/21/19 00:10: Troponin I 0.104 H 09/21/19 03:50: WBC 8.6, RBC 4.78, Hgb 13.2, Hct 41.1, MCV 86.0, MCH 27.6, MCHC 32.1, RDW Std Deviation 42.5, RDW Coeff of Yeimi 13.5, Plt Count 203, MPV 9.1, Immature Gran % (Auto) 0.200, Neut % (Auto) 53.1, Lymph % (Auto) 30.7, [place] % (Auto) 10.2 H, Eos % (Auto) 4.5, Baso % (Auto) 1.3 H, Absolute Neuts (auto) 4.6, Absolute Lymphs (auto) 2.64, Nucleated RBC % 0 09/21/19 03:50: Sodium 135 L, Potassium 3.5, Chloride 105, Carbon Dioxide 24.0, Anion Gap 6, BUN 12, Creatinine 0.54 L, Estim Creat Clear Calc 94.71, Est GFR (MDRD) Af Amer 147, Est GFR (MDRD) Non-Af 122, BUN/Creatinine Ratio 22.4 H, Glucose 115 H, Calcium 9.0, Triglycerides 66, Cholesterol 81, LDL Cholesterol 10, VLDL Cholesterol 13, HDL Cholesterol 58 09/21/19 03:50: Troponin I 0.106 H 09/21/19 06:37: POC Glucose 122 H 09/21/19 10:29: POC Glucose 172 H Current Medications Acetaminophen (Tylenol) 650 mg PO Q6H PRN PRN PRN Reason: Pain Score 1-10/Temp > 100.7 F Last Admin: 09/21/19 10:40 Dose: 650 mg Documented by: Aspirin (Ecotrin) 81 mg PO DAILY@0800 [facility] Last Admin: 09/21/19 06:40 Dose: 81 mg Documented by: Atorvastatin Calcium (Lipitor) 80 mg PO QHS [facility] Last Admin: 09/20/19 21:26 Dose: 80 mg Documented by: Carvedilol (Coreg) 6.25 mg PO BID [facility] Cholecalciferol (Vitamin D (25mcg)) [facility] Last Admin: 09/21/19 10:34 Dose: 2,000 unit Documented by: Clopidogrel Bisulfate (Plavix) 75 mg PO DAILY [facility] Last Admin: 09/21/19 06:40 Dose: 75 mg Documented by: Dextrose (D50w Syringe) 0 gm IV X1 PRN; Protocol PRN Reason: Hypoglycemia Doxepin HCl (Sinequan) 20 mg PO QHS [facility] Ferrous Sulfate (Ferrous Sulfate) [facility] Last Admin: 09/21/19 10:32 Dose: 325 mg Documented by: Glimepiride (Amaryl) [facility] [address] [facility] Last Admin: 09/21/19 10:32 Dose: 4 mg Documented by: Glucagon () 1 mg IM .X1 PRN PRN Reason: Hypoglycemia Hydroxyzine Pamoate (Vistaril Pamoate Capsule) 50 mg PO TID [facility] Last Admin: 09/21/19 12:39 Dose: 50 mg Documented by: Sodium Chloride () 250 mls @ 15 mls/hr IV .[id number] PRN PRN Reason: Saline Flush Sodium Chloride () 250 mls @ 15 mls/hr IV .[id number] PRN PRN Reason: Additional IVPB Infusion Insulin Human Lispro (Humalog Kwikpen (Bkc)) 0 unit SC [facility]; Protocol Last Admin: 09/21/19 10:33 Dose: 1 u Documented by: Isosorbide Mononitrate (Imdur) 30 mg PO DAILY [facility] Last Admin: 09/21/19 10:32 Dose: 30 mg Documented by: Lisinopril (Zestril) 2.5 mg PO DAILY [facility] Last Admin: 09/21/19 06:40 Dose: 2.5 mg Documented by: Magnesium Oxide (Mag-Ox 400) [facility] Last Admin: 09/21/19 10:33 Dose: 400 mg Documented by: Melatonin (Melatonin) 3 mg PO QHS PRN PRN PRN Reason: INSOMNIA Nitroglycerin (Nitrostat) 0.4 mg SUBLINGUAL Q5M PRN PRN Reason: CARDIAC/CHEST PAIN Nutritional Formula (Lactose Free) (Glucerna Shake) 120 ml PO TIDCM [facility] Last Admin: 09/21/19 10:40 Dose: Not Given Documented by: Ondansetron HCl (Zofran) 4 mg IV Q8H PRN PRN PRN Reason: NAUSEA/VOMITING Pantoprazole Sodium (Protonix) 40 mg PO QHS [facility] Last Admin: 09/20/19 21:26 Dose: 40 mg Documented by: Potassium Chloride (K-Dur) 20 meq PO DAILYCM [facility] Last Admin: 09/21/19 10:33 Dose: 20 meq Documented by: Pramipexole Dihydrochloride (Mirapex) 0.5 mg PO QHS [facility] Last Admin: 09/20/19 21:26 Dose: 0.5 mg Documented by: Pramipexole Dihydrochloride (Mirapex) 0.25 mg PO DAILY@1400 PRN PRN Reason: RESTLESS LEGS Sodium Chloride () 10 - 40 ml IV UD PRN PRN Reason: SALINE FLUSH Last Admin: 09/21/19 12:40 Dose: 10 ml Documented by: Sucralfate (Carafate) 1 gm PO 1HR_ACHS [facility] Last Admin: 09/21/19 10:32 Dose: 1 gm Documented by: Venlafaxine HCl (Effexor Xr) 37.5 mg PO DAILY [facility] Last Admin: 09/21/19 10:33 Dose: 37.5 mg Documented by: Discharge Diet: Low fat/ Low Cholesterol Discharge Activity: Return to Normal Activity Call your doctor if you observe: Shortness of breath, Dizziness, Fainting spells, Chest pain Home Medications: Medications to take at Discharge Aspirin E.C. [Ecotrin] 81 mg PO DAILY@0800 10/21/16 Glimepiride [Amaryl] 4 mg PO BID 10/21/16 Clopidogrel Bisulfate [Plavix] 75 mg PO DAILY 05/18/17 Potassium Chloride [K-Dur] 20 meq PO DAILY 10/06/17 Sucralfate [Carafate] 1 gm PO 4X/DAY 10/19/17 Albuterol Inhaler [Ventolin Hfa] 2 puff INHALATION Q6H PRN PRN 10/23/17 Cholecalciferol (Vitamin D3) [Vitamin D3] 2,000 unit PO DAILY 10/23/17 Pantoprazole Sodium [Protonix] 40 mg PO QHS 11/23/17 ferrous sulfate 325 mg (65 mg iron) tablet 325 mg PO DAILY tab 12/18/17 Rosuvastatin Calcium [Crestor] 40 mg PO QHS 01/06/18 carvedilol 3.125 mg tablet 3.125 mg PO BID #60 tab 11/10/18 lisinopril 2.5 mg tablet 2.5 mg PO DAILY #30 tab 08/16/19 isosorbide mononitrate 30 mg tablet,extended release 24 hr 30 mg PO DAILY #30 tab 08/17/19 hydroxyzine HCl 50 mg tablet 50 mg PO TID tab 08/21/19 ropinirole 0.5 mg tablet 1 mg PO QHS tab 08/21/19 nitroglycerin 0.4 mg sublingual tablet 0.4 mg SUBLINGUAL ONCE #25 tab 08/23/19 Doxepin HCl [Sinequan] 20 mg PO DAILY 09/20/19 Estrogen,Con/M-Progest Acet [Prempro 0.625-2.5 MG Tablet] 1 tab PO DAILY 09/20/19 Magnesium Oxide [Mag-Ox 400] 400 mg PO DAILY 09/20/19 Promethazine HCl 25 mg PO Q6H PRN PRN 09/20/19 Teriflunomide [Aubagio] 14 mg PO DAILY 09/20/19 Venlafaxine HCl [Venlafaxine HCl ER] 37.5 mg PO DAILY 09/20/19 Carvedilol [Coreg (Beta Marielle)] 6.25 mg PO BID #60 tab 09/21/19 Following Prescrptions Were Given to Patient: Carvedilol [Coreg (Beta Marielle)] 6.25 mg PO BID #60 tab Transmission Status: Received by [facility] [id number] Primary Care Physician: Matthew Noble Chi, MD [Primary Care Provider] - Please follow up with your Primary Care Physician in: 1 Week Please Follow Up With: Fatuma Antoine PA When: 1 Week Disposition: Home Minutes spent on discharge:: 35 Patient Condition:: Stable Medical Necessity - Tobacco Use Smoking Status: Current every day smoker Meaningful Use Info Meaningful Use Diagnoses (Choose all that apply): None applicable <Filiberto Lin - Last Filed: 09/21/19 13:34> Discharge Date and Diagnosis - Secondary Discharge Diagnosis Chronic Problems: Chronic Problems (Last Reviewed 08/23/19 @ 11:[address] Elias Butler MD) Major depression (Chronic) Atherosclerotic heart disease of [place] coronary artery without angina pectoris (Chronic) Old anterior wall myocardial infarction (Chronic 04/08/16) History of coronary artery stent placement (Chronic 04/08/16) PCI-aspiration [id number] LAD 3.0 mm x 18 mm Resolute Stent and POBA-Mid D2 04/08/16 Ischemic cardiomyopathy (Chronic) Chronic systolic (congestive) heart failure (Chronic) Essential (primary) hypertension (Chronic) Typical atrial flutter (Chronic) Paroxysmal atrial fibrillation (Chronic) Nicotine abuse (Chronic) Hyperlipemia (Chronic) Hospital Course and Treatment Imaging Results: 09/21/19 07:27 Stress Test Echo W/Contrast [ECHO] Routine Summary of Care Provided: The patient is a 63 year old F [] - Physical Exam Vitals/I&O's: Vital Signs Temp Pulse Resp BP Pulse Ox 98.1 F 86 16 128/61 H 95 09/21/19 10:23 09/21/19 10:23 09/21/19 10:23 09/21/19 10:23 09/21/19 10:23 Oxygen Delivery Method Room Air Weight: 136 lb 3.931 oz Body Mass Index (BMI) 22.6 Finger Stick Blood Glucose 151 Intake and Output for Last 24 Hours 09/19/19 09/20/19 09/21/19 23:59 23:59 23:59 Intake Total 240 / 240 220 / 220 Balance 240 / 240 220 / 220 Laboratory Results 09/20/19 14:34: Troponin I 0.033 09/20/19 16:02: POC Glucose 221 H 09/20/19 17:57: Troponin I 0.063 H 09/20/19 20:47: Troponin I 0.088 H 09/20/19 21:28: POC Glucose 243 H 09/21/19 00:10: Troponin I 0.104 H 09/21/19 03:50: WBC 8.6, RBC 4.78, Hgb 13.2, Hct 41.1, MCV 86.0, MCH 27.6, MCHC 32.1, RDW Std Deviation 42.5, RDW Coeff of Yeimi 13.5, Plt Count 203, MPV 9.1, Immature Gran % (Auto) 0.200, Neut % (Auto) 53.1, Lymph % (Auto) 30.7, [place] % (Auto) 10.2 H, Eos % (Auto) 4.5, Baso % (Auto) 1.3 H, Absolute Neuts (auto) 4.6, Absolute Lymphs (auto) 2.64, Nucleated RBC % 0 09/21/19 03:50: Sodium 135 L, Potassium 3.5, Chloride 105, Carbon Dioxide 24.0, Anion Gap 6, BUN 12, Creatinine 0.54 L, Estim Creat Clear Calc 94.71, Est GFR (MDRD) Af Amer 147, Est GFR (MDRD) Non-Af 122, BUN/Creatinine Ratio 22.4 H, Glucose 115 H, Calcium 9.0, Triglycerides 66, Cholesterol 81, LDL Cholesterol 10, VLDL Cholesterol 13, HDL Cholesterol 58 09/21/19 03:50: Troponin I 0.106 H 09/21/19 06:37: POC Glucose 122 H 09/21/19 10:29: POC Glucose 172 H Current Medications Acetaminophen (Tylenol) 650 mg PO Q6H PRN PRN PRN Reason: Pain Score 1-10/Temp > 100.7 F Last Admin: 09/21/19 10:40 Dose: 650 mg Documented by: Aspirin (Ecotrin) 81 mg PO DAILY@0800 [facility] Last Admin: 09/21/19 06:40 Dose: 81 mg Documented by: Atorvastatin Calcium (Lipitor) 80 mg PO QHS [facility] Last Admin: 09/20/19 21:26 Dose: 80 mg Documented by: Carvedilol (Coreg) 6.25 mg PO BID [facility] Cholecalciferol (Vitamin D (25mcg)) [facility] Last Admin: 09/21/19 10:34 Dose: 2,000 unit Documented by: Clopidogrel Bisulfate (Plavix) 75 mg PO DAILY [facility] Last Admin: 09/21/19 06:40 Dose: 75 mg Documented by: Dextrose (D50w Syringe) 0 gm IV X1 PRN; Protocol PRN Reason: Hypoglycemia Doxepin HCl (Sinequan) 20 mg PO QHS [facility] Ferrous Sulfate (Ferrous Sulfate) [facility] Last Admin: 09/21/19 10:32 Dose: 325 mg Documented by: Glimepiride (Amaryl) [facility] Last Admin: 05/27/20 10:32 Dose: 4 mg Documented by: Glucagon () 1 mg IM .X1 PRN PRN Reason: Hypoglycemia Hydroxyzine Pamoate (Vistaril Pamoate Capsule) 50 mg PO TID [facility] Last Admin: 09/21/19 12:39 Dose: 50 mg Documented by: Sodium Chloride () 250 mls @ 15 mls/hr IV .[id number] PRN PRN Reason: Saline Flush Sodium Chloride () 250 mls @ 15 mls/hr IV .[id number] PRN PRN Reason: Additional IVPB Infusion Insulin Human Lispro (Humalog Kwikpen (Bkc)) 0 unit SC ACHS [facility]; Protocol Last Admin: 09/21/19 10:33 Dose: 1 u Documented by: Isosorbide Mononitrate (Imdur) 30 mg PO DAILY [facility] Last Admin: 09/21/19 10:32 Dose: 30 mg Documented by: Lisinopril (Zestril) 2.5 mg PO DAILY [facility] Last Admin: 09/21/19 06:40 Dose: 2.5 mg Documented by: Magnesium Oxide (Mag-Ox 400) [facility] Last Admin: 09/21/19 10:33 Dose: 400 mg Documented by: Melatonin (Melatonin) 3 mg PO QHS PRN PRN PRN Reason: INSOMNIA Nitroglycerin (Nitrostat) 0.4 mg SUBLINGUAL Q5M PRN PRN Reason: CARDIAC/CHEST PAIN Nutritional Formula (Lactose Free) (Glucerna Shake) 120 ml PO TIDCM [facility] Last Admin: 09/21/19 10:40 Dose: Not Given Documented by: Ondansetron HCl (Zofran) 4 mg IV Q8H PRN PRN PRN Reason: NAUSEA/VOMITING Pantoprazole Sodium (Protonix) 40 mg PO QHS [facility] Last Admin: 09/20/19 21:26 Dose: 40 mg Documented by: Potassium Chloride (K-Dur) [facility] Last Admin: 09/21/19 10:33 Dose: 20 meq Documented by: Pramipexole Dihydrochloride (Mirapex) 0.5 mg PO QHS [facility] Last Admin: 09/20/19 21:26 Dose: 0.5 mg Documented by: Pramipexole Dihydrochloride (Mirapex) 0.25 mg PO DAILY@1400 PRN PRN Reason: RESTLESS LEGS Sodium Chloride () 10 - 40 ml IV UD PRN PRN Reason: SALINE FLUSH Last Admin: 09/21/19 12:40 Dose: 10 ml Documented by: Sucralfate (Carafate) 1 gm PO 1HR_ACHS [facility] Last Admin: 09/21/19 10:32 Dose: 1 gm Documented by: Venlafaxine HCl (Effexor Xr) 37.5 mg PO DAILY [facility] Last Admin: 09/21/19 10:33 Dose: 37.5 mg Documented by: Addendum: Dr. Lin I personally examined the patient and reviewed the chart. I agree with the above. 63-year-old female with a history of previous MT and stents placed in 2016 presents with chest pain that she describes as more like a significant chest pressure bandlike across her chest with no radiation. This started at 945 and woke her up from sleep. She says the last time she had any pain this bad was with her previous heart attack. Chest x-ray was unremarkable and EKG was nonischemic. Initial troponin was normal. She was continued on all of her home meds, and she states that at this time the chest pain has resolved. Overnight her troponins did continue to climb to a peak of 0.106. This was discussed with cardiology who saw the patient in consult and recommended a dobutamine stress echo. This was unremarkable and it is felt that her troponin was secondary to an SVT, primarily A. fib with RVR since the EMS EKG demonstrated tachycardia. She continues to be chest pain-free, so her Coreg was increased from 3.125 mg to 6.25 mg and she will need outpatient follow-up with both her primary care doctor as well as cardiology. OBSV E&M: [id number] Observation care discharge
--- NOTE | 2019-09-21 13:09 | CASEMGMT ---
Social Work Pt ready for discharge at this time. VM left with Everett Whyte CM and notified if d/c. Discharge instructions faxed. WILLIAN Hardy
--- NOTE | 2019-09-21 13:14 | CASEMGMT ---
Pt is active with a nurse and aides through [facility] and call to Jahaira at [facility] to notify of Observation status and that pt to be discharged today, voices understanding. Jahaira voices no further questions/concerns at this time. Darrin AJ CM
--- NOTE | 2019-09-21 14:19 | PHA.DC.MC ---
Pharmacy Service has performed discharge medication reconciliation and counseling for this patient. The patient's discharge medication list was reviewed for discrepancies and discrepancies were resolved. The patient was counseled on the following discharge medications and changes in medications for homegoing were reviewed. 1. CORE.25MG PO BID The Reason for Use, instructions for use, and potential side effects were reviewed for all new medications. The patient's questions regarding all of their medications were answered. The patient was able to verbally demonstrate an understanding of their discharge medications. Home Medications Aspirin E.C. [Ecotrin] 81 mg PO DAILY@0800 10/21/16 Glimepiride [Amaryl] 4 mg PO BID 10/21/16 Clopidogrel Bisulfate [Plavix] 75 mg PO DAILY 05/18/17 Potassium Chloride [K-Dur] 20 meq PO DAILY 10/06/17 Sucralfate [Carafate] 1 gm PO 4X/DAY 10/19/17 Albuterol Inhaler [Ventolin Hfa] 2 puff INHALATION Q6H PRN PRN 10/23/17 Cholecalciferol (Vitamin D3) [Vitamin D3] 2,000 unit PO DAILY 10/23/17 Pantoprazole Sodium [Protonix] 40 mg PO QHS 11/23/17 ferrous sulfate 325 mg (65 mg iron) tablet 325 mg PO DAILY tab 12/18/17 Rosuvastatin Calcium [Crestor] 40 mg PO QHS 01/06/18 lisinopril 2.5 mg tablet 2.5 mg PO DAILY #30 tab 08/16/19 isosorbide mononitrate 30 mg tablet,extended release 24 hr 30 mg PO DAILY #30 tab 08/17/19 hydroxyzine HCl 50 mg tablet 50 mg PO TID tab 08/21/19 ropinirole 0.5 mg tablet 1 mg PO QHS tab 08/21/19 nitroglycerin 0.4 mg sublingual tablet 0.4 mg SUBLINGUAL ONCE #25 tab 08/23/19 Doxepin HCl [Sinequan] 20 mg PO DAILY 09/20/19 Estrogen,Con/M-Progest Acet [Prempro 0.625-2.5 MG Tablet] 1 tab PO DAILY 09/20/19 Magnesium Oxide [Mag-Ox 400] 400 mg PO DAILY 09/20/19 Promethazine HCl 25 mg PO Q6H PRN PRN 09/20/19 Teriflunomide [Aubagio] 14 mg PO DAILY 09/20/19 Venlafaxine HCl [Venlafaxine HCl ER] 37.5 mg PO DAILY 09/20/19 Carvedilol [Coreg (Beta Marielle)] 6.25 mg PO BID #60 tab 09/21/19
== END 2019-09-21 12:51 | disposition home health service (06) ==
LOC: ED 12:48 → PCU 12:55
PROVIDERS: Admitting Provider Family Medicine; Emergency Provider Emergency Medicine; PCP Family Medicine Geriatric Medicine; Visit Provider Family Medicine
DX: R07.89 Other chest pain (principal); I25.10 Atherosclerotic heart disease of native coronary artery without angina pectoris; I48.0 Paroxysmal atrial fibrillation; G47.33 Obstructive sleep apnea (adult) (pediatric); E11.9 Type 2 diabetes mellitus without complications; J44.9 Chronic obstructive pulmonary disease, unspecified; E78.5 Hyperlipidemia, unspecified; D50.9 Iron deficiency anemia, unspecified; I25.2 Old myocardial infarction; F32.9 Major depressive disorder, single episode, unspecified; I25.5 Ischemic cardiomyopathy; I11.0 Hypertensive heart disease with heart failure; I50.22 Chronic systolic (congestive) heart failure; Z79.899 Other long term (current) drug therapy; Z79.82 Long term (current) use of aspirin; Z79.02 Long term (current) use of 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/antiplatelets; Z79.84 Long term (current) use of oral hypoglycemic drugs; I48.20 Chronic atrial fibrillation, unspecified; K58.9 Irritable bowel syndrome, unspecified; F41.9 Anxiety disorder, unspecified; G35 Multiple sclerosis; F17.210 Nicotine dependence, cigarettes, uncomplicated
CPT/HCPCS: 36415; 71045; 80048; 80061; 82962; 84484; 85025; 93005; 93017; 93350; 96374; 96375; 99218; 99285; 99406; J7040; Q9957; A4216; C8928; G0378

== ENCOUNTER 2019-12-12 12:30 | Emergency (ER) | payer MEDICARE, MEDICAID, SELFPAY ==
[2016-07-13 11:45] VITALS: BMI 31.4
[2019-09-20 13:01] VITALS: BMI 22.6
[2019-12-12 12:31] VITALS: BP 131/89; PULSE 78; RESP 18; TEMP 36.8; O2SAT 98; BMI 24.9
--- NOTE | 2019-12-12 12:48 | ED.VISSUMM ---
- ER Visit Summary Date of Service: 12/12/19 Chief Complaint: Suprapubic abdominal pain. I think I have a bladder infection History of Present Illness: The patient is a 63 F history of non-insulin diabetes, CAD, hypertension and MS. Patient denies any prior abdominal surgeries has had multiple back surgeries. States for last several days she has had urinary frequency and cloudy urine. No fever or chills. She is also had some nausea and vomiting and diarrhea. Denies any upper abdominal pain. Denies any history of diverticulitis. No prior abdominal surgeries. Physical Examination: Older female no acute distress vital signs stable afebrile. H EENT exam unremarkable. Neck nontender no lymphadenopathy. Lungs clear to auscultation bilaterally. Heart regular rhythm no murmur. Chest wall nontender. Abdomen soft. Suprapubic tenderness. No rebound, guarding or rigidity. Nondistended. No signs of obstruction. Soft positive bowel sounds. Both upper quadrants are nontender. No hernia or mass. No pulsatile mass. Patient is moving all 4 extremities. Calves nontender without edema. Neurologically she is awake alert with no focal motor deficits. Test Results: CBC shows a white count 8. Hemoglobin 13. No bands. Chemistry shows sodium 130 patient's had low sodium before. Normal gap normal creatinine. Liver enzymes unremarkable. UA positive for infection with positive nitrites, 25-50 white blood cells and 4+ bacteria. Culture was sent. This will be treated. Emergency Department Course and Treatment: Patient with suprapubic abdominal pain. Could be secondary to UTI versus other etiologies. At this time I do not think she needs imaging unless the urine does not show signs of infection. She will be treated with IV morphine and Zofran. Labs are pending. Repeat exam patient is doing well at 2:15 PM. Given a dose of p.o. Keflex. Discharged home. Culture pending. Treatment Plan: Fluids and rest. Keflex 4 times a day for 7 days. Follow-up with your doctor. Return if worse. Disposition: Discharge Impression: Acute suprapubic abdominal pain Acute UTI (cystitis) Chronic hyponatremia This note was generated with [employer] software. It may contain incorrect words, spelling, and punctuation that were not noted in review of the chart prior to signing ED Disposition - Plan for ED Patient: Referrals: Matthew Noble Chi, MD [Primary Care Provider] -
[2019-12-12] MEDS: Morphine 4 MG/ML Syringe IV (12:57)
[2019-12-12] MEDS: Ondansetron 4 MG/2 ML Vial IV (12:57)
[2019-12-12 13:04] LABS: Mucous, Urine 0 SEEN /hpf (<or=2+); Red Blood Cells-Urine 0 SEEN /hpf (0-5); Squamous Epithelial Cells - UA 0 SEEN /hpf (5-10)
[2019-12-12 13:07] LABS: Absolute Lymphocyte Count 1.48 X10^3/uL (0.83-4.51); Absolute Neutrophil Count 5.7 X10^3/uL (2.0-7.7); Basophil# 0.11 X10^3/uL; Basophil% 1.3 % (0-1); Eosinophil# 0.31 X10^3/uL; Eosinophils% 3.8 % (0-5); Hematocrit 42.5 % (37-47); Hemoglobin 13.6 g/dL (12.0-15.0); Lymphocyte # 1.48 X10^3/ul (4.0); Mean Corpuscular Hgb 27.4 pg (27.0-32.0); Mean Corpuscular Volume 85.7 fL (81-99); Mean Platelet Vol. 9.9 fl (6.2-12.0); Monocyte# 0.59 X10^3/uL; Monocyte% 7.2 % (0-10); NRBC Flagged by Analyzer 0 % (0-5); Neutrophil # 5.68 X10^3/uL (2.7-7.7); Neutrophil % 69.3 % (47-70); Platelet Count 221 K/mm3 (150-450); RBC Distribution Width CV 14.5 % (11.6-14.6); RBC Distribution Width SD 45.3 fl (35.1-43.9); Red Blood Count 4.96 M/mm3 (4.2-5.4); White Blood Count 8.2 K/mm3 (4.4-11.0)
[2019-12-12 13:17] LABS: Color, Urine Yellow (Yellow); Glucose, Dipstick 1000 mg/dl (Normal); Ketone-Dipstick Negative (Negative); Leukocyte Esterase-Dipstick 100 /ul (Negative); Nitrite-Dipstick Positive (Negative); Occult Blood-Urine Negative /ul (Negative); Protein-Dipstick Negative (Negative); Specific Gravity, Urine 1.015 (1.002-1.030); Urine Bilirubin Dipstick Negative (Negative); Urine Clarity Cloudy (Clear); Urine Urobilinogen Normal (Normal)
[2019-12-12 13:22] LABS: White Blood Cells 25-50 SEEN /hpf (0-5)
[2019-12-12 13:23] LABS: Bacteria 4+ /hpf (None Seen)
[2019-12-12 13:23] LABS: ALB/GLOB Ratio 0.9 RATIO (0.9-2.4); AST(SGOT) 15 U/L (15-37); Alanine Aminotransfer ALT/SGPT 18 U/L (13-56); Albumin, Serum 3.2 g/dL (3.2-5.0); Alkaline Phosphatase 143 U/L (45-117); Anion Gap 6 (5-15); BUN 18 mg/dL (7-18); BUN/Creat Ratio 21.6 RATIO (10-20); Calcium,Total 9.3 mg/dL (8.5-10.1); Chloride 102 mmol/L (98-107); Creatinine, Serum 0.83 mg/dL (0.55-1.02); EST Glomerular Filtration Rate 73 mL/min (>60); Est Glom Filt Rate - Afr Amer 88 mL/min (>60); Estimated Creatinine Clearance 61.62 ml/min; Globulin 3.4 g/dL (2.2-4.2); Glucose 341 mg/dL (74-106); Potassium 4.4 mmol/L (3.5-5.1); Protein, Total 6.6 g/dL (6.4-8.2); Sodium Level 130 mmol/L (136-145)
--- NOTE | 2019-12-12 14:17 | ED.DEP ---
ED Disposition - Plan for ED Patient: Disposition: Home or Assisted Living Instructions: ED CYSTITIS Female Adult Prescriptions: Cephalexin [Keflex] 500 mg PO Q6 #30 cap Prescription Printed Referrals: Matthew Noble Chi, MD [Primary Care Provider] - 3-5 Days Additional Instructions: Fluids and rest. Follow-up with your doctor to ensure you are improving. Keflex 4 times a day till gone. We did do a urine culture that should tell us exactly what bacteria is causing your urinary tract infection and make sure that the antibiotic we chose which was Keflex is treating that.
[2019-12-12 14:20] VITALS: BP 130/70; PULSE 51; RESP 18
[2019-12-12] MEDS: Cephalexin 250 MG Capsule 500 MG PO (14:25)
== END 2019-12-12 14:37 | disposition home or self-care (01) ==
PROVIDERS: Emergency Provider Emergency Medicine; PCP Family Medicine Geriatric Medicine
DX: R10.9 Unspecified abdominal pain (principal); N39.0 Urinary tract infection, site not specified; E87.1 Hypo-osmolality and hyponatremia; I25.10 Atherosclerotic heart disease of native coronary artery without angina pectoris; I10 Essential (primary) hypertension; E11.9 Type 2 diabetes mellitus without complications; Z79.82 Long term (current) use of aspirin; Z79.84 Long term (current) use of oral hypoglycemic drugs
CPT/HCPCS: 80053; 81001; 85025; 87077; 87086; 87088; 87186; 96374; 96375; 99285; A4216; J2405

== ENCOUNTER → 2019-12-21 10:07 | Outpatient (CLI) | payer MEDICARE, MEDICAID, SELFPAY ==
[2016-07-13 11:45] VITALS: BMI 31.4
[2019-12-12 12:31] VITALS: BMI 24.9
[2019-12-21 10:57] LABS: Absolute Neutrophil Count 5.6 X10^3/uL (2.0-7.7); Basophil% 1.2 % (0-1); Eosinophil# 0.39 X10^3/uL; Eosinophils% 4.6 % (0-5); Hematocrit 43.7 % (37-47); Hemoglobin 13.6 g/dL (12.0-15.0); Mean Corp Hgb Conc 31.1 g/dL (32-36); Mean Corpuscular Hgb 27.3 pg (27.0-32.0); Mean Corpuscular Volume 87.6 fL (81-99); Mean Platelet Vol. 10.1 fl (6.2-12.0); Monocyte# 0.73 X10^3/uL; Monocyte% 8.6 % (0-10); NRBC Flagged by Analyzer 0 % (0-5); Neutrophil # 5.58 X10^3/uL (2.7-7.7); Neutrophil % 65.4 % (47-70); Platelet Count 250 K/mm3 (150-450); RBC Distribution Width CV 14.5 % (11.6-14.6); RBC Distribution Width SD 45.6 fl (35.1-43.9); Red Blood Count 4.99 M/mm3 (4.2-5.4); White Blood Count 8.5 K/mm3 (4.4-11.0)
[2019-12-21 11:17] LABS: Hemoglobin A1c 9.3 % (3.8-5.6)
[2019-12-21 11:41] LABS: Vitamin D,25 Hydroxy 43.7 ng/mL
[2019-12-21 11:55] LABS: ALB/GLOB Ratio 0.9 RATIO (0.9-2.4); AST(SGOT) 19 U/L (15-37); Alanine Aminotransfer ALT/SGPT 27 U/L (13-56); Albumin, Serum 3.1 g/dL (3.2-5.0); Alkaline Phosphatase 145 U/L (45-117); Anion Gap 4 (5-15); BUN 20 mg/dL (7-18); BUN/Creat Ratio 29.8 RATIO (10-20); Calcium,Total 8.7 mg/dL (8.5-10.1); Chloride 107 mmol/L (98-107); Creatinine, Serum 0.67 mg/dL (0.55-1.02); EST Glomerular Filtration Rate 94 mL/min (>60); Est Glom Filt Rate - Afr Amer 113 mL/min (>60); Globulin 3.4 g/dL (2.2-4.2); Glucose 190 mg/dL (74-106); Potassium 3.8 mmol/L (3.5-5.1); Protein, Total 6.5 g/dL (6.4-8.2); Sodium Level 137 mmol/L (136-145); Thyroid Stim Hormone (TSH) 1.92 uIU/mL (0.358-3.74)
== END ==
PROVIDERS: PCP Family Medicine Geriatric Medicine; Visit Provider Family Medicine Geriatric Medicine
DX: E11.9 Type 2 diabetes mellitus without complications (principal); E55.9 Vitamin D deficiency, unspecified; I10 Essential (primary) hypertension
CPT/HCPCS: 36415; 80053; 82306; 83036; 84443; 85025

== ENCOUNTER 2019-12-25 23:16 | Inpatient (IN) | payer MEDICARE, MEDICAID, SELFPAY ==
[2016-07-13 11:45] VITALS: BMI 31.4
[2019-12-25 23:17] VITALS: BP 116/66; PULSE 65; RESP 16; TEMP 36.8; O2SAT 98; BMI 25.7
--- NOTE | 2019-12-25 23:37 | CT_ITS ---
STUDY: CT ABDOMEN AND PELVIS WITHOUT CONTRAST REASON FOR EXAM: Female, 64 years old. RIGHT FLANK PAIN, DIARRHEA RADIATION DOSAGE (If Supplied By Facility): CTDIvol = ( 8.11 ) mGy, DLP = ( 364.57 ) mGycm TECHNIQUE: Transaxial images were obtained from the dome of the diaphragm to the symphysis pubis without oral contrast, and without intravenous contrast. Sagittal and coronal images were reconstructed. Individualized dose optimization techniques were used for this CT. COMPARISON: 11/20/2017 FINDINGS: The visualized lung bases are unremarkable. The visualized portions of the heart are within normal limits. Normal liver. Dilated gallbladder is present with no evidence of pericholecystic fluid. Normal spleen. Normal pancreas. There is symmetric enlargement of the adrenal glands suggesting adrenal hyperplasia. Normal right kidney. Normal left kidney. Normal visualized stomach. Mild areas of small bowel dilatation and air-fluid levels are present with no evidence of definitive obstruction. Normal colon. The appendix is visualized and appears normal. Normal abdominal aorta. Normal inferior vena cava. Normal retroperitoneum. Normal urinary bladder. Normal visualized uterus. Small fundal calcified fibroid is present. Normal abdominal wall. There are diffuse degenerative changes of the visualized lumbar spine. CT/Abdomen/Pelvis without Cont IMPRESSION: 1. No evidence of nephrolithiasis or ureteral stone. Mild areas of small bowel dilatation and air-fluid levels concerning for underlying ileus without evidence of definitive obstruction. Otherwise no evidence of acute intra-abdominal process or focal inflammation. Electronically Signed: Bala Starkey DO at 0:37 EDT , Service support ,
--- NOTE | 2019-12-25 23:40 | ED.VIS.GEN ---
History of Present Illness Chief Complaint: Flank Pain Informant: Patient Onset: Today Current Severity: Moderate Maximum Severity: Moderate Narrative: Patient presents with right flank pain started around 3 PM this afternoon. She does report having some diarrhea. She does states she was recently treated for UTI with Keflex. At that time she was having frequency. She states she continues to have frequency now. She denies fever or chills. No vomiting. - Past Medical History (1) Chronic systolic (congestive) heart failure Status: Chronic (2) Essential (primary) hypertension Status: Chronic (3) History of coronary artery stent placement Status: Chronic Comment: PCI-aspiration [id number] LAD 3.0 mm x 18 mm Resolute Stent and POBA-Mid D2 04/08/16 (4) Hyperlipemia Status: Chronic (5) Ischemic cardiomyopathy Status: Chronic (6) Major depression Status: Chronic (7) Old anterior wall myocardial infarction Status: Chronic (8) Paroxysmal atrial fibrillation Status: Chronic (9) Typical atrial flutter Status: Chronic (10) History of ST elevation myocardial infarction (STEMI) Status: Resolved Past Medical History - Allergies and Home Meds Allergies/Adverse Reactions: Allergies indomethacin [From Indocin] Allergy (Verified 12/25/19 23:20) Hives indomethacin sodium [From Indocin] Allergy (Verified 12/25/19 23:20) Hives iodine Allergy (Verified 12/25/19 23:20) Hives propoxyphene napsylate [From Darvocet-N] Allergy (Verified 12/25/19 23:20) Out of control aripiprazole [From Abilify] Adverse Reaction (Verified 12/25/19 23:20) Other drool uncontrollably aspirin Adverse Reaction (Verified 12/25/19 23:20) Upset Stomach when taken in high doses clindamycin Adverse Reaction (Verified 12/25/19 23:20) Nausea metformin Adverse Reaction (Verified 12/25/19 23:20) Other IT CAUSES MY KIDNEYS TO DO WEIRD THINGS sumatriptan [From Imitrex] Adverse Reaction (Verified 12/25/19 23:20) Vomiting Primary Care Physician: Matthew Noble Chi, MD [Primary Care Provider] - Prior records reviewed: Yes Surgical History: adenoidectomy, angioplasty - Cardiac stent, tonsillectomy, - - L foot great toe ampuation, Back surgery x 3, L carpal tunnel surgery x 2, R carpal tunnel surgery x 1, R thumb reconstructive surgery. cervical spinal surgery february 27 at [facility]. Smoking Status: Current every day smoker - Family History Maternal Family History: Family History (Last Reviewed 09/20/19 @ 16:14 by JAYRO Mckeon) Father Cancer Mother Cancer Family History: Reports: Cancer - mother pancreatic ca Paternal Family History: Family History (Last Reviewed 09/20/19 @ 16:14 by JAYRO Mckeon) Father Cancer Mother Cancer Family History: Reports: Cancer - father lung ca., - - Lung cancer Review of Systems General: Denies: Chills, Fever Eyes: Denies: Visual changes - bilaterally ENT: Denies: Bilateral ear pain Cardiovascular: Denies: Chest pain Respiratory: Denies: Dyspnea, Cough Gastrointestinal: Reports: Abdominal pain, Diarrhea. Denies: Nausea, Vomiting Genitourinary: Denies: Dysuria Musculoskeletal: Denies: Swelling, Extremity Pain Skin: Denies: Rash Hematologic: Denies: Easy bruising, Easy bleeding Allergy: Denies: Uticaria Physical Exam Vital Signs/Narrative: Vital Signs Temp Pulse Resp BP Pulse Ox 12/25/19 23:17 98.3 F 65 16 116/66 98 Inital Vital Signs reviewed: Yes General: Well nourished, Well developed Head: Normocephalic ENT: Moist mucous membranes Neck: Supple Cardiovascular: Regular rate, Regular rhythm Respiratory: No distress, CTA bilaterally Abdomen: Soft, Normal bowel sounds, Tender - Right lateral abdominal wall tenderness.. Negative for: Guarding, Rebound tenderness Back: Nontender. Negative for: CVA tenderness Extremities: Nontender Skin: Normal color Neurological: Alert, Oriented x3, Normal Strength, Normal Sensation Psychological: Normal affect Diagnostic/Tx/Re-eval Impressions Abdomen/Pelvis CT 12/25/19 23:37 IMPRESSION: 1. No evidence of nephrolithiasis or ureteral stone. Mild areas of small bowel dilatation and air-fluid levels concerning for underlying ileus without evidence of definitive obstruction. Otherwise no evidence of acute intra-abdominal process or focal inflammation. Electronically Signed: Bala Starkey DO at 0:37 EDT , Service support , 12/25/19 23:37 Abdomen/Pelvis without Cont [CT] Stat Laboratory Results 12/25/19 12/25/19 23:30 23:30 WBC 7.7 RBC 4.77 Hgb 13.2 Hct 40.7 MCV 85.3 MCH 27.7 MCHC 32.4 RDW Std Deviation 43.5 RDW Coeff of Yeimi 13.9 Plt Count 211 MPV 10.1 Immature Gran % (Auto) 0.300 Neut % (Auto) 56.7 Lymph % (Auto) 27.8 [place] % (Auto) 9.9 Eos % (Auto) 4.0 Baso % (Auto) 1.3 H Absolute Neuts (auto) 4.4 Absolute Lymphs (auto) 2.15 Nucleated RBC % 0 Sodium 139 Potassium 4.7 Chloride 110 H Carbon Dioxide 22.0 Anion Gap 7 BUN 22 H Creatinine 0.78 Estim Creat Clear Calc 64.70 Est GFR (MDRD) Af Amer 95 Est GFR (MDRD) Non-Af 79 BUN/Creatinine Ratio 28.2 H Glucose 203 H Calcium 9.0 Total Bilirubin 0.30 Direct Bilirubin 0.12 AST 20 ALT 24 Alkaline Phosphatase 112 Total Protein 6.2 L Albumin 2.9 L Globulin 3.3 Lipase 1240 H - Medical Decision Making Patient was given morphine and Zofran. After returning from CT she states her pain was actually worse. She was given a small dose of Dilaudid and Phenergan. Lab results do indicate pancreatitis. She states that she had pancreatitis one time in the distant past. She denies history of gallstones but states that several years ago she had a infection in her gallbladder. The remainder of her LFTs are not significantly elevated. CT scan also indicates possible early ileus. Patient has had diarrhea throughout the day. At this time she will be kept n.p.o. and given IV fluids. I will speak with hospitalist regarding admission. ED Disposition - Plan for ED Patient: Disposition: Acute Care Hospital [facility] Diagnosis: Pancreatitis Referrals: Matthew Noble Chi, MD [Primary Care Provider] -
[2019-12-25] MEDS: 0.9% Normal Saline 1,000 ML 150 ML IV (23:47)
[2019-12-25] MEDS: Morphine 4 MG/ML Syringe IV (23:47)
[2019-12-25] MEDS: Ondansetron 4 MG/2 ML Vial IV (23:47)
[2019-12-25 23:55] LABS: Absolute Lymphocyte Count 2.15 X10^3/uL (0.83-4.51); Absolute Neutrophil Count 4.4 X10^3/uL (2.0-7.7); Basophil% 1.3 % (0-1); Eosinophil# 0.31 X10^3/uL; Hematocrit 40.7 % (37-47); Hemoglobin 13.2 g/dL (12.0-15.0); Lymphocyte # 2.15 X10^3/ul (4.0); Lymphocyte % 27.8 % (19-41); Mean Corp Hgb Conc 32.4 g/dL (32-36); Mean Corpuscular Hgb 27.7 pg (27.0-32.0); Mean Corpuscular Volume 85.3 fL (81-99); Mean Platelet Vol. 10.1 fl (6.2-12.0); Monocyte# 0.77 X10^3/uL; Monocyte% 9.9 % (0-10); NRBC Flagged by Analyzer 0 % (0-5); Neutrophil # 4.39 X10^3/uL (2.7-7.7); Neutrophil % 56.7 % (47-70); Platelet Count 211 K/mm3 (150-450); RBC Distribution Width CV 13.9 % (11.6-14.6); RBC Distribution Width SD 43.5 fl (35.1-43.9); Red Blood Count 4.77 M/mm3 (4.2-5.4); White Blood Count 7.7 K/mm3 (4.4-11.0)
[2019-12-26] VITALS (8 sets, daily range): BP systolic 104–165; BP diastolic 50–82; PULSE 53–66; RESP 16–18; TEMP 36.5–36.9; O2SAT 94–99; BMI 25.2; BMI 25.3
[2019-12-26] LABS: AST(SGOT) 20 U/L (15-37); Alanine Aminotransfer ALT/SGPT 24 U/L (13-56); Albumin, Serum 2.9 g/dL (3.2-5.0); Alkaline Phosphatase 112 U/L (45-117); Anion Gap 7 (5-15); BUN 22 mg/dL (7-18); BUN/Creat Ratio 28.2 RATIO (10-20); Bilirubin, Direct 0.12 mg/dL (0.00-0.30); Chloride 110 mmol/L (98-107); Creatinine, Serum 0.78 mg/dL (0.55-1.02); EST Glomerular Filtration Rate 79 mL/min (>60); Est Glom Filt Rate - Afr Amer 95 mL/min (>60); Globulin 3.3 g/dL (2.2-4.2); Glucose 203 mg/dL (74-106); Lipase 1240 U/L (73-393); Potassium 4.7 mmol/L (3.5-5.1); Protein, Total 6.2 g/dL (6.4-8.2); Sodium Level 139 mmol/L (136-145)
[2019-12-26] MEDS: HYDROmorphone 0.5 MG/0.5 ML SYRINGE IV ×6 (00:45→22:00)
[2019-12-26] MEDS: proMETHazine 25 MG/ML Syringe 12.5 MG IV (00:45)
[2019-12-26 00:53] LABS: Bacteria 0 SEEN /hpf (None Seen); Mucous, Urine 0 SEEN /hpf (<or=2+); Red Blood Cells-Urine 0 SEEN /hpf (0-5)
[2019-12-26 01:04] LABS: Color, Urine Yellow (Yellow); Glucose, Dipstick Normal (Normal); Ketone-Dipstick Negative (Negative); Leukocyte Esterase-Dipstick 25 /ul (Negative); Nitrite-Dipstick Negative (Negative); Occult Blood-Urine Negative /ul (Negative); Protein-Dipstick 30 mg/dl (Negative); Urine Bilirubin Dipstick Negative (Negative); Urine Clarity Clear (Clear); Urine Urobilinogen Normal (Normal)
--- NOTE | 2019-12-26 01:04 | HP.PCM_ITS ---
Problem List (1) Pancreatitis Status: Acute (2) Major depression Status: Chronic (3) Atherosclerotic heart disease of [place] coronary artery without angina pectoris Status: Chronic Qualifiers: [place] vs. transplanted heart: [place] heart Qualified Code(s): I25.10 - Atherosclerotic heart disease of [place] coronary artery without angina pectoris (4) History of ST elevation myocardial infarction (STEMI) Status: Resolved (5) Old anterior wall myocardial infarction Status: Chronic (6) History of coronary artery stent placement Status: Chronic Comment: PCI-aspiration [id number] LAD 3.0 mm x 18 mm Resolute Stent and POBA-Mid D2 04/08/16 (7) Ischemic cardiomyopathy Status: Chronic (8) Chronic systolic (congestive) heart failure Status: Chronic (9) Essential (primary) hypertension Status: Chronic (10) Typical atrial flutter Status: Chronic (11) Paroxysmal atrial fibrillation Status: Chronic (12) Nicotine abuse Status: Chronic (13) Hyperlipemia Status: Chronic Qualifiers: Hyperlipidemia type: pure hypercholesterolemia Qualified Code(s): E78.00 - Pure hypercholesterolemia, unspecified; E78.0 - Pure hypercholesterolemia History of Present Illness Date of Admission: 12/26/19 Chief Complaint: Abdominal pain and diarrhea for 1 day The patient is a 64 year old F with multiple comorbidities as mentioned above came to ED with abdominal pain and diarrhea for 1 day. She describes abdominal pain as initially started in epigastric/right upper quadrant region and then moved to right lateral abdomen, 8-10/10 intensity, constant without aggravating, relieving or precipitating factor. This is associated with nausea and one-time vomiting of gastric content. She also had diarrhea about 4-5 times, large- volume watery. She completed 7 days of antibiotics, Keflex given for acute cystitis. Patient denies burning micturition but he still has increased frequency and urgency and incomplete emptying of the bladder. Denies fever, chills or flulike illness or recent contact or exposure to COVID-19 person. [In ED, triage vitals are normal. Significant abnormal labs are serum lipase 1240, glucose 203, albumin 2.9 but normal transaminases and total bilirubin. No leukocytosis. CT abdomen shows no evidence of nephrolithiasis or ureteral stone but mild small bowel dilatation and air-fluid levels concerning for underlying ileus without definitive evidence of obstruction. Dilated gallbladd er with no evidence of pericholecystic fluid, normal spleen and pancreas. Past Medical History Past Medical History (Chronic Problems): Chronic Problems (Last Reviewed 08/23/19 @ 11:[address] Elias Méndez MD) Major depression (Chronic) Atherosclerotic heart disease of [place] coronary artery without angina pectoris (Chronic) Old anterior wall myocardial infarction (Chronic 04/08/16) History of coronary artery stent placement (Chronic 04/08/16) PCI-aspiration [id number] LAD 3.0 mm x 18 mm Resolute Stent and POBA-Mid D2 04/08/16 Ischemic cardiomyopathy (Chronic) Chronic systolic (congestive) heart failure (Chronic) Essential (primary) hypertension (Chronic) Typical atrial flutter (Chronic) Paroxysmal atrial fibrillation (Chronic) Nicotine abuse (Chronic) Hyperlipemia (Chronic) Medical History: Medical History (Last Reviewed 08/23/19 @ 11:[address] Elias Méndez MD) Major depression (Chronic) F32.9 Atherosclerotic heart disease of [place] coronary artery without angina pectoris (Chronic) I25.[address] elevation myocardial infarction (STEMI) (Resolved) I25.2 Old anterior wall myocardial infarction (Chronic) Onset Date: 04/08/16 I25.2 Ischemic cardiomyopathy (Chronic) I25.5 Chronic systolic (congestive) heart failure (Chronic) I50.22 Essential (primary) hypertension (Chronic) I10 Typical atrial flutter (Chronic) I48.3 Paroxysmal atrial fibrillation (Chronic) I48.0 Nicotine abuse (Chronic) Z72.0 Anxiety F41.9 COPD (chronic obstructive pulmonary disease) J44.9 Cervical spinal stenosis M48.02 Diabetes mellitus type 2 in nonobese E11.9 Frequent falls R29.6 Hypokalemia E87.6 IBS (irritable bowel syndrome) K58.9 Left ventricular hypertrophy I51.7 Multiple sclerosis G35 BRYAN (obstructive sleep apnea) G47.33 RLS (restless legs syndrome) G25.81 Radiculitis, thoracic M54.14 Suicidal ideation R45.851 Apical mural thrombus with acute MO I21.29 Hypothermia T68.XXXA Hypovolemic shock R57.1 Non-rheumatic tricuspid valve insufficiency (Resolved) I36.1 Syncope R55 Takotsubo syndrome I51.81 Acute renal failure (Inactive) Dehydration (Inactive) E86.0 Hypomagnesemia (Inactive) E83.42 Hyponatremia (Inactive) E87.1 Iron deficiency (Inactive) E61.1 Irritable bowel syndrome with diarrhea (Inactive) K58.0 Menopausal disorder (Inactive) N95.9 Metabolic encephalopathy (Inactive) G93.41 due to acute renal failure and overmedication Vitamin B12 deficiency (Inactive) E53.8 Allergies indomethacin [From Indocin] Allergy (Verified 12/25/19 23:20) Hives indomethacin sodium [From Indocin] Allergy (Verified 12/25/19 23:20) Hives iodine Allergy (Verified 12/25/19 23:20) Hives propoxyphene napsylate [From Darvocet-N] Allergy (Verified 12/25/19 23:20) Out of control aripiprazole [From Abilify] Adverse Reaction (Verified 12/25/19 23:20) Other drool uncontrollably aspirin Adverse Reaction (Verified 12/25/19 23:20) Upset Stomach when taken in high doses clindamycin Adverse Reaction (Verified 12/25/19 23:20) Nausea metformin Adverse Reaction (Verified 12/25/19 23:20) Other IT CAUSES MY KIDNEYS TO DO WEIRD THINGS sumatriptan [From Imitrex] Adverse Reaction (Verified 12/25/19 23:20) Vomiting Home Medications: Ambulatory Orders Medication Instructions Recorded Aspirin E.C. [Ecotrin] 81 mg PO DAILY@0800 10/21/16 Glimepiride [Amaryl] 4 mg PO BID 10/21/16 Clopidogrel Bisulfate [Plavix] 75 mg PO DAILY 05/18/17 Potassium Chloride [K-Dur] 20 meq PO DAILY 10/06/17 Albuterol Inhaler [Ventolin Hfa] 2 puff INHALATION Q6H PRN PRN 10/23/17 Rosuvastatin Calcium [Crestor] 40 mg PO QHS 01/06/18 lisinopril 2.5 mg tablet 2.5 mg PO DAILY #30 tab 08/16/19 isosorbide mononitrate 30 mg 30 mg PO DAILY #30 tab 08/17/19 tablet,extended release 24 hr ropinirole 0.5 mg tablet 2 mg PO QHS tab 08/21/19 nitroglycerin 0.4 mg sublingual 0.4 mg SUBLINGUAL ONCE #25 tab 08/23/19 tablet Estrogen,Con/M-Progest Acet 1 tab PO DAILY 09/20/19 [Prempro 0.625-2.5 MG Tablet] Teriflunomide [Aubagio] 14 mg PO DAILY 09/20/19 Venlafaxine HCl [Venlafaxine HCl 37.5 mg PO DAILY 09/20/19 ER] Carvedilol [Coreg (Beta Marielle)] 6.25 mg PO BID #60 tab 09/21/19 Modafinil [Provigil] 200 mg PO DAILY 12/12/19 Pioglitazone HCl 30 mg PO DAILY 12/25/19 Ropinirole HCl 1 mg PO LUNCH 12/25/19 Surgical History: Surgical History (Last Reviewed 08/23/19 @ 11:[address] Elias Méndez MD) History of coronary artery stent placement (Chronic) Onset Date: 04/08/16 Z95.5 PCI-aspiration qmzhftsxmhdk-JOP-qrh LAD 3.0 mm x 18 mm Resolute Stent and POBA-Mid D2 04/08/16 History of loop recorder Onset Date: 06/2014 Z98.890 History of amputation of left great toe Z89.412 staph infection History of back surgery Z98.890 History of carpal tunnel release of both wrists Z98.890 History of cervical discectomy Z98.890 History of left knee surgery Z98.890 torn meniscus repair x 2 History of tonsillectomy and adenoidectomy Z98.890 History of tubal ligation Z98.51 Lower limb amputation, great toe Z89.419 Surgical History: adenoidectomy, angioplasty - Cardiac stent, tonsillectomy, - - L foot great toe ampuation, Back surgery x 3, L carpal tunnel surgery x 2, R carpal tunnel surgery x 1, R thumb reconstructive surgery. cervical spinal surgery february 27 at [facility]. 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 Smoking Status: Current every day smoker - *Family History Maternal Family History: Family History (Last Reviewed 09/20/19 @ 16:14 by JAYRO Mckeon) Father Cancer Mother Cancer History Items: Cancer - mother pancreatic ca Paternal Family History: Family History (Last Reviewed 09/20/19 @ 16:14 by Malini Home, COMMERCIAL LEASING AGENT-C) Father Cancer Mother Cancer History Items: Cancer - father lung ca., - - Lung cancer Review of Systems Constitutional: Denies: Chills, Fever, Weight Change HEENT: Denies: Head Aches, Sinus Congestion, Sinus Drainage Cardiovascular: Denies: Chest Pain, Palpitations Respiratory: Denies: Cough, Shortness of breath at rest, Sputum production Gastrointestinal: Reports: Abdominal Pain, Diarrhea, Nausea, Vomiting. Denies: Hematemesis, Hematochezia, Melena Genitourinary: Reports: Frequency, Retention, Urgency. Denies: Dysuria Musculoskeletal: Reports: Back Pain, Joint Pain. Denies: Joint Tenderness Skin: Denies: Rash, Wounds Neurological: Reports: Balance problems. Denies: Focal weakness, Numbness, Tingling Psychiatric: Reports: Anxiety, Depression. Denies: Homicidal Ideations, Suicidal Ideations Hematologic/ Lymphatic: Denies: Easy Bruising, Easy Bleeding VTE Information - Inpt Only VTE Present on Admission: No VTE Mechan Device Prophylaxis: None VTE Pharm Prophylaxis ordered?: Yes Patient Problems: Active and Suspected Problems (Last Reviewed 08/23/19 @ 11:[address] Elias Méndez MD) Pancreatitis (Acute) - Physical Exam Vitals/I&O's: Vital Signs Temp Pulse Resp BP Pulse Ox 98.3 F 65 16 116/66 98 12/25/19 23:17 12/25/19 23:17 12/25/19 23:17 12/25/19 23:17 12/25/19 23:17 Oxygen Delivery Method Room Air Weight: 154 lb 8.705 oz Body Mass Index (BMI) 25.7 Finger Stick Blood Glucose 151 General: Alert, Oriented x3, Cooperative HEENT: Atraumatic, PERRLA, EOMI, Normocephalic Neck: Supple, No JVD, Negative Carotid Bruits Lungs: Clear to auscultation, No rhonchi, No wheeze, No rales, Diminished - Air entry diminished bilaterally Cardiovascular: Regular rate, Regular Rhythm, Normal S1, Normal S2, No murmurs Abdomen: Bowel Sounds Present, Soft, Tender - Tenderness present over epigastric and right abdominal. Bowel sounds sluggish. No palpable mass. No abdominal distention. Extremities: No edema, Capillary Refill Less than 3 Seconds Skin: No rashes, No breakdown Musculoskeletal: No Tenderness to Palpation of Joints or Extremities, Arthritic Changes Neurological: Cranial nerves II-XII grossly intact, Deep Tendon Reflexes 2+/4 and Symmetrical, Neuro grossly intact Psych/Mental Status: Normal Affect, Appropriate Laboratory Results 12/25/19 23:30: WBC 7.7, RBC 4.77, Hgb 13.2, Hct 40.7, MCV 85.3, MCH 27.7, MCHC 32.4, RDW Std Deviation 43.5, RDW Coeff of Yeimi 13.9, Plt Count 211, MPV 10.1, Immature Gran % (Auto) 0.300, Neut % (Auto) 56.7, Lymph % (Auto) 27.8, [place] % (Auto) 9.9, Eos % (Auto) 4.0, Baso % (Auto) 1.3 H, Absolute Neuts (auto) 4.4, Absolute Lymphs (auto) 2.15, Nucleated RBC % 0 12/25/19 23:30: Sodium 139, Potassium 4.7, Chloride 110 H, Carbon Dioxide 22.0, Anion Gap 7, BUN 22 H, Creatinine 0.78, Estim Creat Clear Calc 64.70, Est GFR (MDRD) Af Amer 95, Est GFR (MDRD) Non-Af 79, BUN/Creatinine Ratio 28.2 H, Glucose 203 H, Calcium 9.0, Total Bilirubin 0.30, Direct Bilirubin 0.12, AST 20, ALT 24, Alkaline Phosphatase 112, Total Protein 6.2 L, Albumin 2.9 L, Globulin 3.3, Lipase 1240 H 12/26/19 00:45: Urine Color Pending, Urine Clarity Pending, Urine pH Pending, Ur Specific [place] Pending, Urine Protein Pending, Urine Glucose (UA) Pending, Urine Ketones Pending, Urine Occult Blood Pending, Urine Nitrite Pending, Urine Bilirubin Pending, Urine Urobilinogen Pending, Ur Leukocyte Esterase Pending, Urine RBC Pending, Urine WBC Pending, Ur Squamous Epith Cells Pending, Urine Bacteria Pending, Urine Mucus Pending Current Medications Sodium Chloride () 1,000 mls @ 150 mls/hr IV .Q6H40M [facility] Last Admin: 12/25/19 23:47 Dose: 150 mls/hr Documented by: Assessment/Plan All Active Problems (Last Reviewed 08/23/19 @ 11:[address] Elias Méndez MD) Pancreatitis (Acute) History of ST elevation myocardial infarction (STEMI) (Resolved) Acute ST segment elevation MO (Resolved) Chest pain (Resolved) Chest pain (Resolved) Non-rheumatic tricuspid valve insufficiency (Resolved) STEMI (ST elevation myocardial infarction) (Resolved) Shortness of breath (Resolved) Takotsubo cardiomyopathy (Resolved) Takotsubo cardiomyopathy (Resolved) The patient is a 64 year old F with multiple comorbidities as mentioned above came to ED with abdominal pain and diarrhea for 1 day with recent antibiotic intake for 7 days and lab and imaging findings consistent with acute pancreatitis and small bowel ileus. 1. Acute pancreatitis, exact etiology unclear: Patient denies drinking alcohol. Has history of gallbladder infection about 40 years ago but denies cholelithiasis or obstructive jaundice. Liver enzymes are normal except low albumin which is chronic. Patient is being admitted as MedSurg status in PCU. IV fluid normal saline at 50 mils per hour. Keep the patient n.p.o. Intake and output monitoring. If pain persist, will do right upper quadrant sonogram and surgical consult. 2. Acute small bowel ileus most probably secondary to acute pancreatitis or possible gastroenterocolitis: As the history is short and patient on 7 days of antibiotic, Keflex which she completed today, will order stool for C. difficile along with enteric bacteriology panel, stool for leukocytes and occult blood. Conservative management. 3. Coronary artery disease with history of MO/NSTEMI status post stents/history of ventricular thrombus: Patient follows Dr. méndez. Hold oral medications. 4. Paroxysmal atrial fibrillation-currently patient is in sinus rhythm. EKG shows normal sinus rhythm with LAD and old anteroseptal and inferior infarct. Patient was last admitted on 09/20/2023 chest pain and A. fib with RVR and a stress test was negative for acute ischemia. 5. BRYAN-noncompliant with CPAP. 6. Type 2 diabetes [id number] every 6 hourly and cover with Humalog sliding scale. With sliding scale insulin. 7. Chronic COPD-no exacerbation. Patient had PFT in April 2017 and reported grossly within normal limit but significant response to bronchodilator suggestive of possible entity like asthma/reversible airway disease. As needed albuterol aerosol. 8. Hypertension-blood pressure slightly elevated 165/82. On IV hydralazine as needed 9. Hyperlipidemia-hold 10. Chronic iron deficiency anemia-hold iron supplementation. 11. History of severe depression/suicidal ideations-currently stable. 12. Tobacco dependence-patient is still smokes 1 pack/day. Encouraged cessation. DVT prophylaxis- Lovenox sc Living will/advanced directive/end of life care: Patient does have living will or advanced directive. His son Mr. Lazaro Mclean is power of ip technology transactions attorney for health. After discussion of procedures involved with full code, DNR CC arrest and DNR CC, the patient opted for full code for short time for reversible causes but does not want to be on artificial life support for prolonged days. Patient does want artificial life support including intubation, tube feed, ventilator and/chest compression, central venous catheter, vasopressor and DC shock if needed for temporary and reversible causes of Full code. Total time spent in [id number] encounter in discussion of advanced directive 16 minutes. Clinical Impression(s) from Imaging Studies Abdomen/Pelvis CT 12/25/19 23:37 IMPRESSION: 1. No evidence of nephrolithiasis or ureteral stone. Mild areas of small bowel dilatation and air-fluid levels concerning for underlying ileus without evidence of definitive obstruction. Otherwise no evidence of acute intra-abdominal process or focal inflammation. Inpatient E&M: 79653 Init Hosp L3 Procedures: 10523 Advncd Care Plan 30 Min
[2019-12-26 01:10] LABS: Squamous Epithelial Cells - UA 0-5 SEEN /hpf (5-10); White Blood Cells 0-5 SEEN /hpf (0-5)
[2019-12-26] MEDS: 0.9% Normal Saline 1,000 ML 150 ML IV ×3 (02:38→17:17)
[2019-12-26 02:39] LABS: Magnesium 1.8 mg/dL (1.6-2.6)
[2019-12-26] MEDS: Ondansetron 4 MG/2 ML Vial IV ×2 (06:39→16:02)
[2019-12-26] MEDS: Morphine 2 MG/ML Syringe IV ×2 (08:10→10:21)
[2019-12-26] MEDS: proCHLORPERazine 10 MG/2 ML Vial 5 MG IV ×2 (10:21→22:00)
--- NOTE | 2019-12-26 11:23 | US_ITS ---
STUDY: ABDOMINAL ULTRASOUND - RIGHT UPPER QUADRANT REASON FOR VISIT: Female, 64 years old RUQ PAIN, N/V X 1 DAY TECHNIQUE: Ultrasound evaluation of the right upper quadrant was performed with real-time and static goins-scale imaging. TECHNICAL QUALITY: Limited. Examination limited by bowel gas. COMPARISON: Comparison is made with prior CT scan of the abdomen done earlier today. FINDINGS: Liver: The liver measures 15.9 cm. There is normal echogenicity of the liver. The bile ducts are within normal limits. There is hepatic color flow. The direction of portal flow is hepatopetal. There is no demonstrated mass lesion. Gallbladder: Normal distended gallbladder. The gallbladder wall measures 2.0 mm. There is a negative sonographic Pool''s sign. There is no pericholecystic fluid. There are no gallstones. Common Bile Duct (C.B.D.): The common bile duct measures 11 mm. Pancreas: There is nonvisualization of the pancreas. Right Kidney: Normal size of the right kidney. The right kidney measures 10.5 cm x 4.1 cm x 4.2 cm. Normal renal cortex. The right cortex measures 1.0 cm. There is no demonstrated renal mass or cyst. There is no right hydronephrosis. US/Gallbladder IMPRESSION: No acute abnormality is seen. Electronically Signed: Daljit Jordan, at 13:16 EDT , Service support ,
[2019-12-26] MEDS: 0.9% Saline Lock 10 ML Syringe IV ×2 (11:43→16:02)
--- NOTE | 2019-12-26 12:09 | PN_ITS ---
<Malini Bhat - Last Filed: 12/26/19 12:26> Patient Problems: Active and Suspected Problems (Last Updated 12/26/19 @ 13:[address] Brittnee Turner MD) Pancreatitis (Acute) Subjective: Patient seen and examined. Reports 10 out of 10 abdominal pain. Complains of dry heaving, denies emesis. Denies fever, chills. Denies diarrhea. - Physical Exam Vitals/I&O's: Vital Signs Temp Pulse Resp BP Pulse Ox 98.5 F 62 16 104/50 L 97 12/26/19 09:35 12/26/19 09:35 12/26/19 09:35 12/26/19 09:35 12/26/19 09:35 Oxygen Delivery Method Room Air Weight: 153 lb 7.068 oz Body Mass Index (BMI) 25.2 Finger Stick Blood Glucose 151 Intake and Output for Last 24 Hours 12/24/19 12/25/19 12/26/19 23:59 23:59 23:59 Intake Total 1742.5 / 1742.5 Balance 1742.5 / 1742.5 General: Alert, Oriented x3, Cooperative HEENT: Atraumatic, PERRLA, EOMI, Normocephalic Oral: Dry Mucosa Neck: Supple, No JVD, Negative Carotid Bruits Laboratory Results 12/25/19 23:30: WBC 7.7, RBC 4.77, Hgb 13.2, Hct 40.7, MCV 85.3, MCH 27.7, MCHC 32.4, RDW Std Deviation 43.5, RDW Coeff of Yeimi 13.9, Plt Count 211, MPV 10.1, Immature Gran % (Auto) 0.300, Neut % (Auto) 56.7, Lymph % (Auto) 27.8, Keith % (Auto) 9.9, Eos % (Auto) 4.0, Baso % (Auto) 1.3 H, Absolute Neuts (auto) 4.4, Absolute Lymphs (auto) 2.15, Nucleated RBC % 0 12/25/19 23:30: Sodium 139, Potassium 4.7, Chloride 110 H, Carbon Dioxide 22.0, Anion Gap 7, BUN 22 H, Creatinine 0.78, Estim Creat Clear Calc 64.70, Est GFR (MDRD) Af Amer 95, Est GFR (MDRD) Non-Af 79, BUN/Creatinine Ratio 28.2 H, Glucose 203 H, Calcium 9.0, Total Bilirubin 0.30, Direct Bilirubin 0.12, AST 20, ALT 24, Alkaline Phosphatase 112, Total Protein 6.2 L, Albumin 2.9 L, Globulin 3.3, Lipase 1240 H 12/25/19 23:30: Magnesium 1.8 12/26/19 00:45: Urine Color Yellow, Urine Clarity Clear, Urine pH 5.0, Ur Specific [place] 1.020, Urine Protein 30 H, Urine Glucose (UA) Normal, Urine Ketones Negative, Urine Occult Blood Negative, Urine Nitrite Negative, Urine Bilirubin Negative, Urine Urobilinogen Normal, Ur Leukocyte Esterase 25 H, Urine RBC 0 SEEN, Urine WBC 0-5 SEEN, Ur Squamous Epith Cells 0-5 SEEN, Urine Bacteria 0 SEEN, Urine Mucus 0 SEEN Current Medications Acetaminophen (Tylenol) 650 mg RECTAL Q4H PRN PRN PRN Reason: Pain Score 1-10/Temp > 100.7 F Albuterol Sulfate (Ventolin Aerosols) 2.5 mg INHALATION Q2H PRN PRN PRN Reason: Shortness of Breath/Wheezing Hydromorphone HCl (Dilaudid Inj) 0.5 mg IV Q4H PRN PRN PRN Reason: Pain Score 6-10/10 Last Admin: 12/26/19 11:40 Dose: 0.5 mg Documented by: Sodium Chloride () 1,000 mls @ 150 mls/hr IV .[id number] [facility], 1928–1983 Last Infusion: 12/26/19 11:43 Dose: 0 mls/hr Documented by: Sodium Chloride () 250 mls @ 15 mls/hr IV .[id number] PRN PRN Reason: Saline Flush Sodium Chloride () 250 mls @ 15 mls/hr IV .[id number] PRN PRN Reason: Additional IVPB Infusion Pantoprazole Sodium 40 mg/ (Sodium Chloride) 110 mls @ 330 mls/hr IV Q12 RANDI Morphine Sulfate () 2 - 4 mg IV Q3H PRN PRN PRN Reason: Pain Score 4-5/10 Last Admin: 12/26/19 10:21 Dose: 2 mg Documented by: Ondansetron HCl (Zofran) 4 mg IV Q8H PRN PRN PRN Reason: NAUSEA/VOMITING Last Admin: 12/26/19 06:39 Dose: 4 mg Documented by: Prochlorperazine Edisylate (Compazine Iv) 5 mg IV Q4H PRN PRN PRN Reason: Breakthrough nausea/vomiting Last Admin: 12/26/19 10:21 Dose: 5 mg Documented by: Sodium Chloride () 10 - 40 ml IV UD PRN PRN Reason: SALINE FLUSH Last Admin: 12/26/19 11:43 Dose: 10 ml Documented by: Trazodone HCl (Desyrel) 50 mg PO QHS PRN PRN PRN Reason: insomnia/anxiety Medical Necessity - Tobacco Use Smoking Status: Current every day smoker Assessment/Plan All Active Problems (Last Updated 12/26/19 @ 13:[address] Brittnee Turner MD) Pancreatitis (Acute) 1. Acute abdominal pain-acute pancreatitis versus ileus versus gallbladder etiology. CT of abdomen pelvis shows a dilated gallbladder with no evidence of pauline-cholecystic fluid. Mild areas of small bowel dilatation and air-fluid levels concerning for underlying ileus. No evidence of obstruction. No other evidence of acute intra-abdominal process or focal inflammation. Obtain gallbladder ultrasound. Lipase 1240. LFTs and bilirubin normal. N.p.o. PRN pain regimen. IV fluids. IV PPI. 2. CAD with history of PCI/cardiomyopathy/history of ventricular thrombus- Follows with Dr. Butler. Continue aspirin, Plavix, carvedilol, statin, lisinopril, isosorbide. 3. Paroxysmal atrial fibrillation-implantable loop recorder in place. Currently sinus rhythm. Continue carvedilol. Not on anticoagulation. 4. BRYAN-noncompliant with CPAP. 5. Type 2 diabetes [id number] with sliding scale insulin. 6. Chronic COPD-no exacerbation. As needed albuterol aerosol. 7. Hypertension-stable, continue carvedilol, isosorbide, lisinopril. 8. Hyperlipidemia-continue statin. 9. Iron deficiency anemia-continue iron supplementation. 10. History of severe depression/suicidal ideations-currently stable. 11. Tobacco dependence- encouraged cessation. DVT prophylaxis- Lovenox sc This patient was seen by JAYRO Mckeon under the supervision of Dr. Turner. <Brittnee Turner E - Last Filed: 12/26/19 13:43> - Physical Exam Vitals/I&O's: Vital Signs Temp Pulse Resp BP Pulse Ox 98.5 F 62 16 104/50 L 97 12/26/19 09:35 12/26/19 09:35 12/26/19 09:35 12/26/19 09:35 12/26/19 09:35 Oxygen Delivery Method Room Air Weight: 153 lb 7.068 oz Body Mass Index (BMI) 25.2 Finger Stick Blood Glucose 151 Intake and Output for Last 24 Hours 12/24/19 12/25/19 12/26/19 23:59 23:59 23:59 Intake Total 1742.5 / 1742.5 Balance 1742.5 / 1742.5 Laboratory Results 12/25/19 23:30: WBC 7.7, RBC 4.77, Hgb 13.2, Hct 40.7, MCV 85.3, MCH 27.7, MCHC 32.4, RDW Std Deviation 43.5, RDW Coeff of Yeimi 13.9, Plt Count 211, MPV 10.1, Immature Gran % (Auto) 0.300, Neut % (Auto) 56.7, Lymph % (Auto) 27.8, Keith % (Auto) 9.9, Eos % (Auto) 4.0, Baso % (Auto) 1.3 H, Absolute Neuts (auto) 4.4, Absolute Lymphs (auto) 2.15, Nucleated RBC % 0 12/25/19 23:30: Sodium 139, Potassium 4.7, Chloride 110 H, Carbon Dioxide 22.0, Anion Gap 7, BUN 22 H, Creatinine 0.78, Estim Creat Clear Calc 64.70, Est GFR (MDRD) Af Amer 95, Est GFR (MDRD) Non-Af 79, BUN/Creatinine Ratio 28.2 H, Glucose 203 H, Calcium 9.0, Total Bilirubin 0.30, Direct Bilirubin 0.12, AST 20, ALT 24, Alkaline Phosphatase 112, Total Protein 6.2 L, Albumin 2.9 L, Globulin 3.3, Lipase 1240 H 12/25/19 23:30: Magnesium 1.8 12/26/19 00:45: Urine Color Yellow, Urine Clarity Clear, Urine pH 5.0, Ur Specific [place] 1.020, Urine Protein 30 H, Urine Glucose (UA) Normal, Urine Ketones Negative, Urine Occult Blood Negative, Urine Nitrite Negative, Urine Bilirubin Negative, Urine Urobilinogen Normal, Ur Leukocyte Esterase 25 H, Urine RBC 0 SEEN, Urine WBC 0-5 SEEN, Ur Squamous Epith Cells 0-5 SEEN, Urine Bacteria 0 SEEN, Urine Mucus 0 SEEN Current Medications Acetaminophen (Tylenol) 650 mg RECTAL Q4H PRN PRN PRN Reason: Pain Score 1-10/Temp > 100.7 F Albuterol Sulfate (Ventolin Aerosols) 2.5 mg INHALATION Q2H PRN PRN PRN Reason: Shortness of Breath/Wheezing Hydromorphone HCl (Dilaudid Inj) 0.5 mg IV Q4H PRN PRN PRN Reason: Pain Score 6-10/10 Last Admin: 12/26/19 11:40 Dose: 0.5 mg Documented by: Sodium Chloride () 1,000 mls @ 150 mls/hr IV .[id number] RANDI Last Infusion: 12/26/19 12:10 Dose: 150 mls/hr Documented by: Sodium Chloride () 250 mls @ 15 mls/hr IV .[id number] PRN PRN Reason: Saline Flush Sodium Chloride () 250 mls @ 15 mls/hr IV .[id number] PRN PRN Reason: Additional IVPB Infusion Pantoprazole Sodium 40 mg/ (Sodium Chloride) 110 mls @ 330 mls/hr IV Q12 RANDI Morphine Sulfate () 2 - 4 mg IV Q3H PRN PRN PRN Reason: Pain Score 4-5/10 Last Admin: 12/26/19 10:21 Dose: 2 mg Documented by: Ondansetron HCl (Zofran) 4 mg IV Q8H PRN PRN PRN Reason: NAUSEA/VOMITING Last Admin: 12/26/19 06:39 Dose: 4 mg Documented by: Prochlorperazine Edisylate (Compazine Iv) 5 mg IV Q4H PRN PRN PRN Reason: Breakthrough nausea/vomiting Last Admin: 12/26/19 10:21 Dose: 5 mg Documented by: Sodium Chloride () 10 - 40 ml IV UD PRN PRN Reason: SALINE FLUSH Last Admin: 12/26/19 11:43 Dose: 10 ml Documented by: Trazodone HCl (Desyrel) 50 mg PO QHS PRN PRN PRN Reason: insomnia/anxiety Assessment/Plan Hospitalist note: I am seeing this patient in conjunction with Malini Bhat. I independently seen and examined the patient. Progress note above, laboratory data and imaging studies reviewed and I concur with above treatment plan. Today, patient still complaining of abdominal pain. To me, she said that pain is getting better though. She complains of nausea and dry heaving, denied vomiting. Denied fever chills. Her vital signs are stable. - Physical Exam General: Alert, Oriented x3, Cooperative, No apparent distress. HEENT: Atraumatic, PERRLA, EOMI. Neck: Supple, No JVD, Negative Carotid Bruits, Trachea Midline, Thyroid Normal. Lungs: Clear to auscultation, Normal air movement, No rhonchi, No wheeze, No rales. Cardiovascular: Regular rate, Regular Rhythm, Normal S1, Normal S2, PMI Normal. Abdomen: Soft, minimal right upper quadrant tenderness, Non-Distended, No Hepato-splenomegaly. Extremities: No clubbing, No cyanosis, No edema Skin: No rashes, No breakdown Neurological: Cranial nerves are intact, neuro grossly intact Vital Signs are stable. Assessment and plan: #1 mild acute pancreatitis: Unclear etiology. Pancreatic lipase was elevated. LFT was unremarkable. Patient is on n.p.o. and IV fluids as well as IV morphine PRN for pain. CT scan abdomen and pelvis without contrast revealed normal pancreas, no evidence of nephrolithiasis or ureteral stones, small bowel ileus without obstruction. Serum electrolytes are within normal limits. Urinalysis showed no evidence of infection. Plan: Ultrasound gallbladder, repeat CBC, CMP and lipase tomorrow morning. #2 other chronic medical problems: Stable, continue current medications as above. This note was generated with [employer] software. It may contain incorrect words, spelling, and punctuation that were not noted in checking the note before signing.
--- NOTE | 2019-12-26 12:52 | CASEMGMT ---
JEAN MARIE RANDHAWA assessment: Face to Face with patient for initial transition planning/care coordination assessment. JEAN MARIE RANDHAWA introduced self and role at [facility], pt voices understanding and consents to assessment at this time. Pt is lying in bed in no distress at this time. Pt is A/Ox4 at this time and answers all questions appropriately at this time. Care providers, pharmacy, and demographics verified at this time. Presentation: Pt states right sided flank pain/diarrhea Admitting dx: Acute pancreatitis w/ SB ileus PCP: [facility] Specialists: Carrie, cardio; Kayla, chief librarian branch; MS valerie Curran Preferred Pharmacy: [facility] Insurance: [facility] dual Prescription Benefit: [facility] dual Living Will/HPOA: Pt states has LW/HPOA and is aware that they are on file at [facility] at this time. Pt states that her son, Lazaro Mclean, is HPOA. LNOK: Lazaro Mclean, son/HPOA; Robina Burns, sister Living Arrangements: Pt states lives with son in mobile home and states no concerns at home at this time. Pt states is independent with ADL's. Transportation: Pt states son drives and states no transportation concerns at this time. DME/HHC: Pt states has the following DME: cane, walker, w/c, grab bars, and shower chair. Pt states no need for any further DME at this time. [facility] and has been to [facility]. Pt states no concerns with going home at time of discharge. Pt is on disability. Pt states smokes 1/2 pk cigarettes daily but does not drink ETOH. Pt voices no further concerns/needs at this time. CM to follow for any further discharge planning/needs. Advised pt to ask for CM if any further questions/concerns/needs arise, voices understanding. Pt Goal: Home Plan[place] JEAN MARIE RANDHAWA
--- NOTE | 2019-12-26 15:24 | CASEMGMT ---
Patient has a Healthcare Power of Warehouse Guard and a Healthcare Living Will on file at [facility]. Her son, Lazaro is her Healthcare POA. Rajwinder SANCHEZ MSW
[2019-12-27] MEDS: 0.9% Normal Saline 1,000 ML 150 ML IV ×2 (00:13→06:48)
[2019-12-27 02:00] VITALS: BP 117/52; PULSE 52; RESP 14; TEMP 36.9; O2SAT 100
[2019-12-27] MEDS: 0.9% Saline Lock 10 ML Syringe IV (03:04)
[2019-12-27] MEDS: Ondansetron 4 MG/2 ML Vial IV (03:04)
[2019-12-27] MEDS: HYDROmorphone 0.5 MG/0.5 ML SYRINGE IV (03:05)
[2019-12-27 06:29] LABS: Absolute Lymphocyte Count 1.61 X10^3/uL (0.83-4.51); Absolute Neutrophil Count 2.2 X10^3/uL (2.0-7.7); Basophil# 0.08 X10^3/uL; Basophil% 1.7 % (0-1); Eosinophil# 0.18 X10^3/uL; Eosinophils% 3.9 % (0-5); Hematocrit 37.6 % (37-47); Hemoglobin 11.5 g/dL (12.0-15.0); Lymphocyte # 1.61 X10^3/ul (4.0); Lymphocyte % 34.8 % (19-41); Mean Corp Hgb Conc 30.6 g/dL (32-36); Mean Corpuscular Hgb 27.3 pg (27.0-32.0); Mean Corpuscular Volume 89.3 fL (81-99); Mean Platelet Vol. 9.8 fl (6.2-12.0); Monocyte# 0.52 X10^3/uL; Monocyte% 11.2 % (0-10); NRBC Flagged by Analyzer 0 % (0-5); Neutrophil # 2.23 X10^3/uL (2.7-7.7); Neutrophil % 48.2 % (47-70); Platelet Count 166 K/mm3 (150-450); RBC Distribution Width CV 14.3 % (11.6-14.6); RBC Distribution Width SD 46.7 fl (35.1-43.9); Red Blood Count 4.21 M/mm3 (4.2-5.4); White Blood Count 4.6 K/mm3 (4.4-11.0)
[2019-12-27 06:55] LABS: ALB/GLOB Ratio 0.9 RATIO (0.9-2.4); AST(SGOT) 15 U/L (15-37); Alanine Aminotransfer ALT/SGPT 18 U/L (13-56); Albumin, Serum 2.4 g/dL (3.2-5.0); Alkaline Phosphatase 87 U/L (45-117); Anion Gap 4 (5-15); BUN 12 mg/dL (7-18); BUN/Creat Ratio 23.6 RATIO (10-20); Calcium,Total 8.3 mg/dL (8.5-10.1); Chloride 118 mmol/L (98-107); Creatinine, Serum 0.51 mg/dL (0.55-1.02); EST Glomerular Filtration Rate 129 mL/min (>60); Est Glom Filt Rate - Afr Amer 156 mL/min (>60); Estimated Creatinine Clearance 98.96 ml/min; Globulin 2.7 g/dL (2.2-4.2); Glucose 63 mg/dL (74-106); Lipase 102 U/L (73-393); Potassium 3.7 mmol/L (3.5-5.1); Protein, Total 5.1 g/dL (6.4-8.2); Sodium Level 143 mmol/L (136-145)
[2019-12-27 08:00] VITALS: O2SAT 99
[2019-12-27 08:06] VITALS: BP 111/34; PULSE 50; RESP 16; TEMP 36.7; O2SAT 99
--- NOTE | 2019-12-27 11:49 | PCM.DC ---
- Discharge Diagnoses Current Active Problems: Current Active and Chronic Problems (Last Updated 12/26/19 @ 13:[address] Brittnee Turner MD) Pancreatitis (Acute) You will use the following diet at home:: Other - Light diet, advance as tolerated Discharge Activity: Return to Normal Activity Call your doctor if you observe: Shortness of breath, Dizziness, Fainting spells, Chest pain Allergies/Adverse Reactions: Allergies indomethacin [From Indocin] Allergy (Verified 12/25/19 23:20) Hives indomethacin sodium [From Indocin] Allergy (Verified 12/25/19 23:20) Hives iodine Allergy (Verified 12/25/19 23:20) Hives propoxyphene napsylate [From Darvocet-N] Allergy (Verified 12/25/19 23:20) Out of control aripiprazole [From Abilify] Adverse Reaction (Verified 12/25/19 23:20) Other drool uncontrollably aspirin Adverse Reaction (Verified 12/25/19 23:20) Upset Stomach when taken in high doses clindamycin Adverse Reaction (Verified 12/25/19 23:20) Nausea metformin Adverse Reaction (Verified 12/25/19 23:20) Other IT CAUSES MY KIDNEYS TO DO WEIRD THINGS sumatriptan [From Imitrex] Adverse Reaction (Verified 12/25/19 23:20) Vomiting Medications to take at Discharge Aspirin E.C. [Ecotrin] 81 mg PO DAILY@0800 10/21/16 Glimepiride [Amaryl] 4 mg PO BID 10/21/16 Clopidogrel Bisulfate [Plavix] 75 mg PO DAILY 05/18/17 Potassium Chloride [K-Dur] 20 meq PO DAILY 10/06/17 Albuterol Inhaler [Ventolin Hfa] 2 puff INHALATION Q6H PRN PRN 10/23/17 Rosuvastatin Calcium [Crestor] 40 mg PO QHS 01/06/18 lisinopril 2.5 mg tablet 2.5 mg PO DAILY #30 tab 08/16/19 isosorbide mononitrate 30 mg tablet,extended release 24 hr 30 mg PO DAILY #30 tab 08/17/19 ropinirole 0.5 mg tablet 2 mg PO QHS tab 08/21/19 nitroglycerin 0.4 mg sublingual tablet 0.4 mg SUBLINGUAL ONCE #25 tab 08/23/19 Estrogen,Con/M-Progest Acet [Prempro 0.625-2.5 MG Tablet] 1 tab PO DAILY 09/20/19 Teriflunomide [Aubagio] 14 mg PO DAILY 09/20/19 Venlafaxine HCl [Venlafaxine HCl ER] 37.5 mg PO DAILY 09/20/19 Carvedilol [Coreg (Beta Marielle)] 6.25 mg PO BID #60 tab 09/21/19 Modafinil [Provigil] 200 mg PO DAILY 12/12/19 Pioglitazone HCl 30 mg PO DAILY 12/25/19 Ropinirole HCl 1 mg PO LUNCH 12/25/19 Hydroxyzine HCl 50 mg PO 4X/DAY 12/26/19 Pantoprazole Sodium [Protonix] 40 mg PO DAILY #30 tab 12/27/19 traMADol [Ultram] 50 mg PO Q6H PRN PRN #10 tablet 12/27/19 The following prescriptions were given: Pantoprazole Sodium [Protonix] 40 mg PO DAILY #30 tab Transmission Status: Pending to [place] [id number] traMADol [Ultram] 50 mg PO Q6H PRN PRN #10 tablet PRN Reason: Pain Score 6-10/10 Transmission Status: Sent to [place] [address] Primary Care Physician: Matthew Noble Chi, MD [Primary Care Provider] - Please follow up with your Primary Care Physician in: 1 Week Test Results: Test results from this visit will be discussed in further detail at your follow-up appointment, if applicable. Proposed Discharge Date: 12/27/19
--- NOTE | 2019-12-27 12:12 | DS.PCM_ITS ---
<Malini Bhat - Last Filed: 12/27/19 12:16> Discharge Date and Diagnosis Date of Admission: 12/26/19 Date of Discharge: 12/27/19 - Primary Discharge Diagnosis Acute Problems: Active Problems (Last Updated 12/26/19 @ 13:[address] Brittnee Turner MD) 1. Mild acute pancreatitis 2. CAD with history of PCI/cardiomyopathy/history of ventricular thrombus 3. Paroxysmal atrial fibrillation 4. BRYAN 5. Type 2 diabetes mellitus 6. Chronic COPD 7. Hypertension 8. Hyperlipidemia 9. Iron deficiency anemia 10. History of severe depression/suicidal ideations 11. Tobacco dependence - Secondary Discharge Diagnosis Chronic Problems: Chronic Problems (Last Updated 12/26/19 @ 13:[address] Brittnee Turner MD) Hyperlipemia (Chronic) Major depression (Chronic) Atherosclerotic heart disease of [place] coronary artery without angina pectoris (Chronic) History of ST elevation myocardial infarction (STEMI) (Chronic) Old anterior wall myocardial infarction (Chronic 04/08/16) History of coronary artery stent placement (Chronic 04/08/16) PCI-aspiration fbsgaaxrrhcl-LPY-wig LAD 3.0 mm x 18 mm Resolute Stent and POBA-Mid D2 04/08/16 Ischemic cardiomyopathy (Chronic) Chronic systolic (congestive) heart failure (Chronic) Essential (primary) hypertension (Chronic) Typical atrial flutter (Chronic) Paroxysmal atrial fibrillation (Chronic) Nicotine abuse (Chronic) Hospital Course and Treatment Imaging Results: Diagnostic Data Abdomen/Pelvis CT 12/25/19 23:37 IMPRESSION: 1. No evidence of nephrolithiasis or ureteral stone. Mild areas of small bowel dilatation and air-fluid levels concerning for underlying ileus without evidence of definitive obstruction. Otherwise no evidence of acute intra-abdominal process or focal inflammation. Electronically Signed: Bala Starkey DO at 0:37 EDT , Service support , Gallbladder Ultrasound 12/26/19 11:23 IMPRESSION: No acute abnormality is seen. Electronically Signed: Daljit Jordan, at 13:16 EDT , Service support , Operations: None Procedures: None Summary of Care Provided: The patient is a 64 year old F admitted 12/26/2019 due to abdominal pain. 1. Mild pancreatitis- CT of abdomen pelvis shows a dilated gallbladder with no evidence of pauline-cholecystic fluid. Mild areas of small bowel dilatation and air-fluid levels concerning for underlying ileus. No evidence of obstruction. No other evidence of acute intra-abdominal process or focal inflammation. Gallbladder ultrasound unremarkable. Lipase 1240. Repeat normal. LFTs and dania irubin normal. Continue PPI at discharge. Follow-up with primary care physician in 1 week. 2. CAD with history of PCI/cardiomyopathy/history of ventricular thrombus- Follows with Dr. Butler. Continue aspirin, Plavix, carvedilol, statin, lisinopril, isosorbide. 3. Paroxysmal atrial fibrillation-implantable loop recorder in place. Currently sinus rhythm. Continue carvedilol. Not on anticoagulation. 4. BRYAN-noncompliant with CPAP. 5. Type 2 diabetes [id number] with sliding scale insulin. 6. Chronic COPD-no exacerbation. As needed albuterol aerosol. 7. Hypertension-stable, continue carvedilol, isosorbide, lisinopril. 8. Hyperlipidemia-continue statin. 9. Iron deficiency anemia-continue iron supplementation. 10. History of severe depression/suicidal ideations-currently stable. 11. Tobacco dependence- encouraged cessation. Patient seen and examined prior to discharge. Physical assessment as noted below. Patient is stable for discharge with follow up recommendations as noted above. This patient was seen by JAYRO Mckeon under the supervision of Dr. Turner. - Physical Exam Vitals/I&O's: Vital Signs Temp Pulse Resp BP Pulse Ox 98.1 F 50 L 16 111/34 L 99 12/27/19 08:06 12/27/19 08:06 12/27/19 08:06 12/27/19 08:06 12/27/19 08:06 Oxygen Delivery Method Room Air Weight: 156 lb 8.451 oz Body Mass Index (BMI) 25.2 Finger Stick Blood Glucose 151 Intake and Output for Last 24 Hours 12/25/19 12/26/19 12/27/19 23:59 23:59 23:59 Intake Total 2537.5 / 2537.5 2730 / 2730 Balance 2537.5 / 2537.5 2730 / 2730 General: Alert, Oriented x3, Cooperative HEENT: Atraumatic, PERRLA, EOMI, Normocephalic Neck: Supple, No JVD, Negative Carotid Bruits Lungs: Clear to auscultation, Normal air movement Cardiovascular: Regular rate, No murmurs Abdomen: Bowel Sounds Present, Soft, Non Tender, Non-Distended Extremities: No clubbing, No cyanosis, No edema, Capillary Refill Less than 3 Seconds Skin: No rashes, No breakdown Musculoskeletal: No Tenderness to Palpation of Joints or Extremities Neurological: Cranial nerves II-XII grossly intact, Neuro grossly intact Psych/Mental Status: Normal Affect, Appropriate Laboratory Results 12/27/19 06:20: WBC 4.6, RBC 4.21, Hgb 11.5 L, Hct 37.6, MCV 89.3, MCH 27.3, MCHC 30.6 L D, RDW Std Deviation 46.7 H, RDW Coeff of Yeimi 14.3, Plt Count 166, MPV 9.8, Immature Gran % (Auto) 0.200, Neut % (Auto) 48.2, Lymph % (Auto) 34.8, [place] % (Auto) 11.2 H, Eos % (Auto) 3.9, Baso % (Auto) 1.7 H, Absolute Neuts (auto) 2.2, Absolute Lymphs (auto) 1.61, Nucleated RBC % 0 12/27/19 06:20: Sodium 143, Potassium 3.7, Chloride 118 H, Carbon Dioxide 21.0, Anion Gap 4 L, BUN 12, Creatinine 0.51 L, Estim Creat Clear Calc 98.96, Est GFR (MDRD) Af Amer 156, Est GFR (MDRD) Non-Af 129, BUN/Creatinine Ratio 23.6 H, Glucose 63 L, Calcium 8.3 L, Total Bilirubin 0.30, AST 15, ALT 18, Alkaline Phosphatase 87, Total Protein 5.1 L, Albumin 2.4 L, Globulin 2.7, Albumin/Globulin Ratio 0.9, Lipase 102 Current Medications Acetaminophen (Tylenol) 650 mg RECTAL Q4H PRN PRN PRN Reason: Pain Score 1-10/Temp > 100.7 F Albuterol Sulfate (Ventolin Aerosols) 2.5 mg INHALATION Q2H PRN PRN PRN Reason: Shortness of Breath/Wheezing Hydromorphone HCl (Dilaudid Inj) 0.5 mg IV Q4H PRN PRN PRN Reason: Pain Score 6-10/10 Last Admin: 12/27/19 03:05 Dose: 0.5 mg Documented by: Sodium Chloride () 1,000 mls @ 150 mls/hr IV .Q6H40M COUNT INCLUDES THE [facility] Last Infusion: 12/27/19 11:16 Dose: 150 mls/hr Documented by: Sodium Chloride () 250 mls @ 15 mls/hr IV .[id number] PRN PRN Reason: Saline Flush Sodium Chloride () 250 mls @ 15 mls/hr IV .[id number] PRN PRN Reason: Additional IVPB Infusion Pantoprazole Sodium 40 mg/ (Sodium Chloride) 110 mls @ 330 mls/hr IV Q12 COUNT INCLUDES THE [facility] Last Infusion: 12/27/19 11:16 Dose: Infused Documented by: Morphine Sulfate () 2 - 4 mg IV Q3H PRN PRN PRN Reason: Pain Score 4-5/10 Last Admin: 12/26/19 10:21 Dose: 2 mg Documented by: Ondansetron HCl (Zofran) 4 mg IV Q8H PRN PRN PRN Reason: NAUSEA/VOMITING Last Admin: 12/27/19 03:04 Dose: 4 mg Documented by: Prochlorperazine Edisylate (Compazine Iv) 5 mg IV Q4H PRN PRN PRN Reason: Breakthrough nausea/vomiting Last Admin: 12/26/19 22:00 Dose: 5 mg Documented by: Sodium Chloride () 10 - 40 ml IV UD PRN PRN Reason: SALINE FLUSH Last Admin: 12/27/19 03:04 Dose: 20 ml Documented by: Trazodone HCl (Desyrel) 50 mg PO QHS PRN PRN PRN Reason: insomnia/anxiety Discharge Diet: Light diet - advance as tolerated Discharge Activity: Return to Normal Activity Call your doctor if you observe: Shortness of breath, Dizziness, Fainting spells, Chest pain Home Medications: Medications to take at Discharge Aspirin E.C. [Ecotrin] 81 mg PO DAILY@0800 10/21/16 Glimepiride [Amaryl] 4 mg PO BID 10/21/16 Clopidogrel Bisulfate [Plavix] 75 mg PO DAILY 05/18/17 Potassium Chloride [K-Dur] 20 meq PO DAILY 10/06/17 Albuterol Inhaler [Ventolin Hfa] 2 puff INHALATION Q6H PRN PRN 10/23/17 Rosuvastatin Calcium [Crestor] 40 mg PO QHS 01/06/18 lisinopril 2.5 mg tablet 2.5 mg PO DAILY #30 tab 08/16/19 isosorbide mononitrate 30 mg tablet,extended release 24 hr 30 mg PO DAILY #30 tab 08/17/19 ropinirole 0.5 mg tablet 2 mg PO QHS tab 08/21/19 nitroglycerin 0.4 mg sublingual tablet 0.4 mg SUBLINGUAL ONCE #25 tab 08/23/19 Estrogen,Con/M-Progest Acet [Prempro 0.625-2.5 MG Tablet] 1 tab PO DAILY 09/20/19 Teriflunomide [Aubagio] 14 mg PO DAILY 09/20/19 Venlafaxine HCl [Venlafaxine HCl ER] 37.5 mg PO DAILY 09/20/19 Carvedilol [Coreg (Beta Marielle)] 6.25 mg PO BID #60 tab 09/21/19 Modafinil [Provigil] 200 mg PO DAILY 12/12/19 Pioglitazone HCl 30 mg PO DAILY 12/25/19 Ropinirole HCl 1 mg PO LUNCH 12/25/19 Hydroxyzine HCl 50 mg PO 4X/DAY 12/26/19 Pantoprazole Sodium [Protonix] 40 mg PO DAILY #30 tab 12/27/19 traMADol [Ultram] 50 mg PO Q6H PRN PRN #10 tab 12/27/19 Following Prescriptions Were Given to Patient: Pantoprazole Sodium [Protonix] 40 mg PO DAILY #30 tab Transmission Status: Received by [facility] [id number] traMADol [Ultram] 50 mg PO Q6H PRN PRN #10 tab PRN Reason: Pain Score 6-10/10 Transmission Status: Received by [facility] [id number] Primary Care Physician: Matthew Noble Chi, MD [Primary Care Provider] - Please follow up with your Primary Care Physician in: 1 Week Disposition: Home Minutes spent on discharge:: 35 Patient Condition:: Stable Medical Necessity - Tobacco Use Smoking Status: Current every day smoker Meaningful Use Info Meaningful Use Diagnoses (Choose all that apply): None applicable <Brittnee Turner - Last Filed: 12/27/19 12:41> Discharge Date and Diagnosis - Secondary Discharge Diagnosis Chronic Problems: Chronic Problems (Last Updated 12/26/19 @ 13:[address] Brittnee Turner MD) Hyperlipemia (Chronic) Major depression (Chronic) Atherosclerotic heart disease of [place] coronary artery without angina pectoris (Chronic) History of ST elevation myocardial infarction (STEMI) (Chronic) Old anterior wall myocardial infarction (Chronic 04/08/16) History of coronary artery stent placement (Chronic 04/08/16) PCI-aspiration [id number]-[id number] LAD 3.0 mm x 18 mm Resolute Stent and POBA-Mid D2 04/08/16 Ischemic cardiomyopathy (Chronic) Chronic systolic (congestive) heart failure (Chronic) Essential (primary) hypertension (Chronic) Typical atrial flutter (Chronic) Paroxysmal atrial fibrillation (Chronic) Nicotine abuse (Chronic) Hospital Course and Treatment Summary of Care Provided: Hospitalist note: Discharge summary above reviewed and I concur with above discharge treatment plan. Patient presented to the emergency room because of abdominal pain around right flank and right upper quadrant region. She was found to have mild acute pancreatitis. On admission, CT scan abdomen and pelvis without contrast revealed normal liver, dilated gallbladder without evidence of pericholecystic fluid, normal spleen and pancreas, revealed mild areas of small bowel ileus. Her routine blood work was unremarkable. LFT was normal. On admission, lipase was 1240. Urinalysis revealed no evidence of acute infection. Patient was treated with IV fluids, kept on clear liquids and also treated with PPI and IV antiemetics. She had ultrasound gallbladder done that showed no evidence of acute cholecystitis, was unremarkable. Apparently, patient was taken off PPI and Carafate recently. With treatment mentioned above, patient symptoms improved and her lipase returned back to normal. LFT remained stable. Patient tolerated full liquid diet. Patient discharged home in a stable medical condition, started back on Protonix, started on tramadol as needed for pain, continued on her previous home medications without any changes, recommended follow-up with PCP in 1 week. - Physical Exam General: Alert, Oriented x3, Cooperative, No apparent distress. HEENT: Atraumatic, PERRLA, EOMI. Neck: Supple, No JVD, Negative Carotid Bruits, Trachea Midline, Thyroid Normal. Lungs: Clear to auscultation, Normal air movement, No rhonchi, No wheeze, No rales. Cardiovascular: Regular rate, Regular Rhythm, Normal S1, Normal S2, PMI Normal. Abdomen: Soft, nontender, non-Distended, No Hepato-splenomegaly. Extremities: No clubbing, No cyanosis, No edema Skin: No rashes, No breakdown Neurological: Cranial nerves are intact, neuro grossly intact Vital Signs are stable. This note was generated with [employer] dictation software. It may contain incorrect words, spelling, and punctuation that were not noted in checking the note before signing. - Physical Exam Vitals/I&O's: Vital Signs Temp Pulse Resp BP Pulse Ox 98.1 F 50 L 16 111/34 L 99 12/27/19 08:06 12/27/19 08:06 12/27/19 08:06 12/27/19 08:06 12/27/19 08:06 Oxygen Delivery Method Room Air Weight: 156 lb 8.451 oz Body Mass Index (BMI) 25.2 Finger Stick Blood Glucose 151 Intake and Output for Last 24 Hours 12/25/19 12/26/19 12/27/19 23:59 23:59 23:59 Intake Total 2537.5 / 2537.5 2730 / 2730 Balance 2537.5 / 2537.5 2730 / 2730 Laboratory Results 12/27/19 06:20: WBC 4.6, RBC 4.21, Hgb 11.5 L, Hct 37.6, MCV 89.3, MCH 27.3, MCHC 30.6 L D, RDW Std Deviation 46.7 H, RDW Coeff of Yeimi 14.3, Plt Count 166, MPV 9.8, Immature Gran % (Auto) 0.200, Neut % (Auto) 48.2, Lymph % (Auto) 34.8, [place] % (Auto) 11.2 H, Eos % (Auto) 3.9, Baso % (Auto) 1.7 H, Absolute Neuts (auto) 2.2, Absolute Lymphs (auto) 1.61, Nucleated RBC % 0 12/27/19 06:20: Sodium 143, Potassium 3.7, Chloride 118 H, Carbon Dioxide 21.0, Anion Gap 4 L, BUN 12, Creatinine 0.51 L, Estim Creat Clear Calc 98.96, Est GFR (MDRD) Af Amer 156, Est GFR (MDRD) Non-Af 129, BUN/Creatinine Ratio 23.6 H, Glucose 63 L, Calcium 8.3 L, Total Bilirubin 0.30, AST 15, ALT 18, Alkaline Phosphatase 87, Total Protein 5.1 L, Albumin 2.4 L, Globulin 2.7, Albumin/Globulin Ratio 0.9, Lipase 102 Current Medications Acetaminophen (Tylenol) 650 mg RECTAL Q4H PRN PRN PRN Reason: Pain Score 1-10/Temp > 100.7 F Albuterol Sulfate (Ventolin Aerosols) 2.5 mg INHALATION Q2H PRN PRN PRN Reason: Shortness of Breath/Wheezing Hydromorphone HCl (Dilaudid Inj) 0.5 mg IV Q4H PRN PRN PRN Reason: Pain Score 6-10/10 Last Admin: 12/27/19 03:05 Dose: 0.5 mg Documented by: Sodium Chloride () 1,000 mls @ 150 mls/hr IV .Q6H40M COUNT INCLUDES THE [facility] Last Infusion: 12/27/19 11:16 Dose: 150 mls/hr Documented by: Sodium Chloride () 250 mls @ 15 mls/hr IV .[id number] PRN PRN Reason: Saline Flush Sodium Chloride () 250 mls @ 15 mls/hr IV .[id number] PRN PRN Reason: Additional IVPB Infusion Pantoprazole Sodium 40 mg/ (Sodium Chloride) 110 mls @ 330 mls/hr IV Q12 COUNT INCLUDES THE [facility] Last Infusion: 12/27/19 11:16 Dose: Infused Documented by: Morphine Sulfate () 2 - 4 mg IV Q3H PRN PRN PRN Reason: Pain Score 4-5/10 Last Admin: 12/26/19 10:21 Dose: 2 mg Documented by: Ondansetron HCl (Zofran) 4 mg IV Q8H PRN PRN PRN Reason: NAUSEA/VOMITING Last Admin: 12/27/19 03:04 Dose: 4 mg Documented by: Prochlorperazine Edisylate (Compazine Iv) 5 mg IV Q4H PRN PRN PRN Reason: Breakthrough nausea/vomiting Last Admin: 12/26/19 22:00 Dose: 5 mg Documented by: Sodium Chloride () 10 - 40 ml IV UD PRN PRN Reason: SALINE FLUSH Last Admin: 12/27/19 03:04 Dose: 20 ml Documented by: Trazodone HCl (Desyrel) 50 mg PO QHS PRN PRN PRN Reason: insomnia/anxiety Disposition: Home Minutes spent on discharge:: 29 Patient Condition:: Stable Meaningful Use Info Meaningful Use Diagnoses (Choose all that apply): None applicable Inpatient E&M: [id number] [facility]
[2019-12-27] MEDS: traMADol 50 MG Tablet PO (13:02)
--- NOTE | 2019-12-28 15:36 | CASEMGMT ---
Addendum entered by Valerie Romero 12/28/19 15:40: Call back from pt at this time. Pt states has been doing 'ok' since discharge. Pt states no questions regarding discharge instructions/medications at this time. Pt states she scheduled her f/u appt with Dr. Noble. Pt states no suggestions for [facility] at this time. Pt states 'I thought you guys were all great.' Pt states no further questions/concerns/needs at this time. Darrin AJ CM Original Note: JEAN MARIE RANDHAWA Discharge F/U Phone Call Lace: 10 Strata: 3 Discharge date: 12/27/2019 Call date: 12/28/2019 Call time: [id number] Attempted to reach pt without success at this time, message left for pt to call this JEAN MARIE RANDHAWA back if/when able. Darrin AJ CM Admission dx: Acute pancreatitis w/ SB ileus
== END 2019-12-27 14:25 | disposition home or self-care (01) | DRG 439 ==
LOC: ED 12-26 01:10 → PCU 12-26 01:34
PROVIDERS: Admitting Provider Internal Medicine; Emergency Provider Emergency Medicine; PCP Family Medicine Geriatric Medicine; Visit Provider Hospitalist
DX: K85.90 Acute pancreatitis without necrosis or infection, unspecified (principal); I50.22 Chronic systolic (congestive) heart failure; I48.3 Typical atrial flutter; K56.7 Ileus, unspecified; I11.0 Hypertensive heart disease with heart failure; I25.10 Atherosclerotic heart disease of native coronary artery without angina pectoris; I25.5 Ischemic cardiomyopathy; I48.0 Paroxysmal atrial fibrillation; I25.2 Old myocardial infarction; G47.33 Obstructive sleep apnea (adult) (pediatric); E11.9 Type 2 diabetes mellitus without complications; J44.9 Chronic obstructive pulmonary disease, unspecified; D50.9 Iron deficiency anemia, unspecified; F32.9 Major depressive disorder, single episode, unspecified; E78.00 Pure hypercholesterolemia, unspecified; G25.81 Restless legs syndrome; G35 Multiple sclerosis; F17.200 Nicotine dependence, unspecified, uncomplicated; Z95.5 Presence of coronary angioplasty implant and graft; Z79.82 Long term (current) use of aspirin; Z79.84 Long term (current) use of oral hypoglycemic drugs; Z79.02 Long term (current) use of 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/antiplatelets; Z79.899 Other long term (current) drug therapy; Z91.19 Patient's noncompliance with other medical treatment and regimen
CPT/HCPCS: 36415; 74176; 76705; 80048; 80053; 80076; 81001; 83690; 83735; 85025; 99285; 99406; J7030; A4216; J2405

== ENCOUNTER 2020-01-02 14:33 | Emergency (ER) | payer MEDICARE, MEDICAID, SELFPAY ==
[2016-07-13 11:45] VITALS: BMI 31.4
[2019-12-26 01:56] VITALS: BMI 25.2
[2020-01-02 14:34] VITALS: BP 156/83; PULSE 55; RESP 16; TEMP 36.8; O2SAT 95; BMI 27.6
--- NOTE | 2020-01-02 14:53 | RAD_ITS ---
STUDY: X-RAY - LEFT ANKLE REASON FOR EXAM: Female, 64 years old. Trauma TECHNIQUE: 3 view(s) of the ankle. COMPARISON: None. FINDINGS: There is an oblique fracture of the distal fibula with overlying soft tissue swelling. The remainder of the visualized osseous structures are intact. There is no dislocation. There are no radiodense foreign bodies. RAD/Ankle min 3 Views IMPRESSION: Oblique fracture of the distal fibula with overlying soft tissue swelling. Electronically Signed: Juan Hamm, at 15:56 EDT Tel , Service support ,
--- NOTE | 2020-01-02 14:53 | RAD_ITS ---
STUDY: X-RAY - LEFT FOOT CLINICAL: Female, 64 years old. Trauma TECHNIQUE: 3 view(s) of the foot. COMPARISON: None. FINDINGS: Please see the ankle radiographs for additional details. There is no acute fracture or dislocation in the left foot. The patient is status post amputation of the left first toe. There are no radiodense foreign bodies. RAD/Foot min 3 Views IMPRESSION: Status post amputation of the left first toe. No fracture or dislocation in the left foot. Please see the left ankle radiographs for additional details. Electronically Signed: Juan Hamm, at 15:57 EDT Tel , Service support ,
--- NOTE | 2020-01-02 14:54 | ED.DCSUM_ITS ---
- ER Visit Summary Date of Service: 01/02/20 Chief Complaint: Left foot and ankle pain History of Present Illness: The patient is a 64 F who presents with left foot and ankle pain that began today. Patient states she tripped over her cat and twisted her left foot and ankle. Patient states she was unable to bear weight after the fall. Patient states her pain is sharp and throbbing. Patient states the pain is worse with movement. Patient denies any paresthesias or weakness. Patient denies any head injury or loss of consciousness. Patient denies any other injuries. Physical Examination: Vital signs are stable. Patient is afebrile. Patient is in no acute distress. Musculoskeletal exam reveals tenderness with mild edema and ecchymosis over the lateral aspect of the left ankle and foot. There is some mild tenderness over the fifth metatarsal. There is mild tenderness over the medial malleolus. There is very minimal tenderness at the proximal fibula. Range of motion was limited in all motions of the left foot and ankle secondary to pain. Sensation was intact light touch in all digits. There is a good pedal pulse noted. Test Results: X-rays of the left foot and left ankle were obtained. There is a nondisplaced spiral oblique fracture of the distal fibula. This was interpreted by the radiologist and reviewed by myself. Emergency Department Course and Treatment: Patient was given a dose of [place] initially. Patient had minimal relief with this. Patient was given an injection of morphine. A well-padded custom made Ortho-Glass posterior and sugar tong splint was applied to the left lower extremity. Patient tolerated the procedure well. Neurovascular exam was intact after application of the splint. Patient was instructed to ice and elevate the left ankle. Patient was given a prescription for [place]. Patient states she sees Dr. Street for podiatry. Patient states she has a walker and a wheelchair at home. Patient is was instructed to use these to help get around. Patient was instructed to follow-up with her in 3 to 5 days. Patient understood and was agreeable with the plan. All questions were answered. Disposition: Discharge home Impression: 1. Acute fracture left distal fibula This note was generated with [employer].ation software. It may contain incorrect words, spelling, and punctuation that were not noted in review of the chart prior to signing ED Disposition - Plan for ED Patient: Disposition: Home or Assisted Living Diagnosis: Fracture of fibula, distal, left, closed Instructions: ED Ankle Fracture Prescriptions: Hydrocodone Bitart/Apap 5-325 [[place] 5MG-325MG] 1 tab PO Q6H PRN PRN 3 Days #10 tab PRN Reason: Pain Prescription Printed Referrals: Matthew Noble Chi, MD [Primary Care Provider] - 5-7 Days Denise Garza DPM [STAFF PHYSICIAN] - Keep Antonio appointment
[2020-01-02] MEDS: HYDROcodone Bitartrate/Apap 5/325 Tablet PO (15:03)
[2020-01-02] MEDS: Morphine 4 MG/ML Syringe IM (15:54)
== END 2020-01-02 16:44 | disposition home or self-care (01) ==
PROVIDERS: Emergency Provider Emergency Medicine; PCP Family Medicine Geriatric Medicine
DX: S82.832A Other fracture of upper and lower end of left fibula, initial encounter for closed fracture (principal); W01.0XXA Fall on same level from slipping, tripping and stumbling without subsequent striking against object, initial encounter; X50.1XXA Overexertion from prolonged static or awkward postures, initial encounter; Y93.9 Activity, unspecified; Y92.9 Unspecified place or not applicable; I48.91 Unspecified atrial fibrillation; G35 Multiple sclerosis; Z79.82 Long term (current) use of aspirin; Z79.02 Long term (current) use of 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/antiplatelets; Z79.899 Other long term (current) drug therapy; Z72.0 Tobacco use
CPT/HCPCS: 29515; 73610; 73630; 96372; 99284

== ENCOUNTER → 2020-02-13 14:00 | Outpatient (CLI) | payer MEDICARE, SELFPAY ==
[2016-07-13 11:45] VITALS: BMI 31.4
[2020-02-13 13:43] VITALS: BMI 26.2
[2020-02-13 15:35] LABS: Absolute Lymphocyte Count 0.91 X10^3/uL (0.83-4.51); Absolute Neutrophil Count 1.6 X10^3/uL (2.0-7.7); Basophil# 0.04 X10^3/uL; Basophil% 1.2 % (0-1); Eosinophil# 0.05 X10^3/uL; Eosinophils% 1.5 % (0-5); Hematocrit 37.4 % (37-47); Hemoglobin 11.7 g/dL (12.0-15.0); Lymphocyte # 0.91 X10^3/ul (4.0); Lymphocyte % 27.9 % (19-41); Mean Corp Hgb Conc 31.3 g/dL (32-36); Mean Corpuscular Hgb 27.3 pg (27.0-32.0); Mean Corpuscular Volume 87.2 fL (81-99); Mean Platelet Vol. 10.6 fl (6.2-12.0); Monocyte# 0.62 X10^3/uL; NRBC Flagged by Analyzer 0 % (0-5); Neutrophil # 1.63 X10^3/uL (2.7-7.7); Neutrophil % 50.1 % (47-70); Platelet Count 176 K/mm3 (150-450); RBC Distribution Width CV 14.3 % (11.6-14.6); RBC Distribution Width SD 45.8 fl (35.1-43.9); Red Blood Count 4.29 M/mm3 (4.2-5.4); White Blood Count 3.3 K/mm3 (4.4-11.0)
[2020-02-13 15:53] LABS: ALB/GLOB Ratio 0.8 RATIO (0.9-2.4); AST(SGOT) 26 U/L (15-37); Alanine Aminotransfer ALT/SGPT 21 U/L (13-56); Albumin, Serum 2.8 g/dL (3.2-5.0); Alkaline Phosphatase 109 U/L (45-117); Anion Gap 8 (5-15); BUN 25 mg/dL (7-18); BUN/Creat Ratio 32.7 RATIO (10-20); Calcium,Total 8.9 mg/dL (8.5-10.1); Chloride 104 mmol/L (98-107); Creatinine, Serum 0.76 mg/dL (0.55-1.02); EST Glomerular Filtration Rate 81 mL/min (>60); Est Glom Filt Rate - Afr Amer 98 mL/min (>60); Globulin 3.3 g/dL (2.2-4.2); Glucose 102 mg/dL (74-106); Potassium 3.8 mmol/L (3.5-5.1); Protein, Total 6.1 g/dL (6.4-8.2); Sodium Level 135 mmol/L (136-145)
== END ==
PROVIDERS: PCP Internal Medicine; Visit Provider Internal Medicine
DX: K58.0 Irritable bowel syndrome with diarrhea (principal)
CPT/HCPCS: 36415; 80053; 85025

== ENCOUNTER 2020-02-17 12:49 | Emergency (ER) | payer MEDICARE, MEDICAID, SELFPAY ==
[2016-07-13 11:45] VITALS: BMI 31.4
[2020-02-13 13:43] VITALS: BMI 26.2
--- NOTE | 2020-02-17 12:53 | EKG12_ITS ---
Test Reason : WEAK/DIZZY Blood Pressure : / mmHG Vent. Rate : 060 BPM Atrial Rate : 060 BPM P-R Int : 152 ms QRS Dur : 094 ms QT Int : 430 ms P-R-T Axes : 041 -63 104 degrees QTc Int : 430 ms Normal sinus rhythm Left axis deviation Inferior infarct , age undetermined Anteroseptal infarct , age undetermined Abnormal ECG Confirmed by CATHERINE WITT, GRIS ([id number]), editor managing newspaper YUNG MUNGUIA ([id number]) on 02/20/2020 11:32:16 AM Referred By: OZZIE YANES Confirmed By:GRIS ALEXANDER MD
[2020-02-17 12:55] VITALS: BP 94/53; PULSE 64; RESP 18; TEMP 36.6; O2SAT 98; BMI 28.9
--- NOTE | 2020-02-17 13:00 | ED.VIS.GEN ---
History of Present Illness Chief Complaint: Weakness Informant: Patient Narrative: 64-year-old female with past medical history of hypertension, coronary artery disease, paroxysmal A. fib presents with concern for weakness. States that she went to the store today when she became profoundly weak and had to sit down on the ground. Was describing dizziness. Describes this as a presyncopal feeling. Denies any chest pain, shortness of breath, nausea, vomiting, diaphoresis. States that she just finished having 2 days of diarrhea. Denies any hematochezia or melena. Past Medical History - Allergies and Home Meds Allergies/Adverse Reactions: Allergies indomethacin [From Indocin] Allergy (Verified 02/17/20 13:02) Hives indomethacin sodium [From Indocin] Allergy (Verified 02/17/20 13:02) Hives iodine Allergy (Verified 02/17/20 13:02) Hives propoxyphene napsylate [From Darvocet-N] Allergy (Verified 02/17/20 13:02) Out of control aripiprazole [From Abilify] Adverse Reaction (Verified 02/17/20 13:02) Other drool uncontrollably aspirin Adverse Reaction (Verified 02/17/20 13:02) Upset Stomach when taken in high doses clindamycin Adverse Reaction (Verified 02/17/20 13:02) Nausea metformin Adverse Reaction (Verified 02/17/20 13:02) Other IT CAUSES MY KIDNEYS TO DO WEIRD THINGS sumatriptan [From Imitrex] Adverse Reaction (Verified 02/17/20 13:02) Vomiting Primary Care Physician: Tom Sherman MD [Primary Care Provider] - Prior records reviewed: Yes Past Medical History: - - HTN, CAD, PAF Surgical History: adenoidectomy, angioplasty - Cardiac stent, tonsillectomy, - - L foot great toe ampuation, Back surgery x 3, L carpal tunnel surgery x 2, R carpal tunnel surgery x 1, R thumb reconstructive surgery. cervical spinal surgery february 27 at [facility]. Lives: Alone Smoking Status: Current every day smoker Alcohol: None Drugs: None - Family History Maternal Family History: Family History (Last Reviewed 09/20/19 @ 16:14 by Malini Bhat NP, LITHOGRAPHIC PLATE MAKER-C) Father Cancer Mother Cancer Family History: Reports: Cancer - mother pancreatic ca Paternal Family History: Family History (Last Reviewed 09/20/19 @ 16:14 by Malini Bhat NP, LITHOGRAPHIC PLATE MAKER-C) Father Cancer Mother Cancer Family History: Reports: Cancer - father lung ca., - - Lung cancer Review of Systems General: Denies: Chills, Fever, Sweats Eyes: Denies: Visual changes - bilaterally, Diplopia ENT: Denies: Rhinorrhea, Sore throat Cardiovascular: Denies: Chest pain, Palpitations Respiratory: Denies: Dyspnea, Cough, Dyspnea on exertion Gastrointestinal: Denies: Abdominal pain, Nausea, Vomiting, Diarrhea, Melena, Hematochezia Genitourinary: Denies: Dysuria, Hematuria, Frequency Musculoskeletal: Denies: Back pain, Extremity Pain Skin: Denies: Rash, Wounds Neurological: Reports: Weakness. Denies: Headache, Numbness Physical Exam Vital Signs/Narrative: Vital Signs Temp Pulse Resp BP Pulse Ox 02/17/20 12:55 98 F 64 18 94/53 L 98 Inital Vital Signs reviewed: Yes General: Well nourished, Well developed, No Acute Distress Head: Normocephalic, Atraumatic Eyes: Perrl, EOMI ENT: Moist mucous membranes, No rhinorrhea Neck: Supple, Nontender Cardiovascular: Regular rate, Regular rhythm, No murmurs Respiratory: No distress, CTA bilaterally, Chest nontender Abdomen: Soft, Nontender, Nondistended, Normal bowel sounds Back: Nontender, Normal Inspection Extremities: Nontender, No edema Skin: Normal color, No rash Neurological: Alert, Oriented x3, Cranial nerves II-XII grossly intact, Normal Strength, Normal Sensation Psychological: Normal affect, Normal Mood Diagnostic/Tx/Re-eval Chest X-Ray - ED: 1 View, Normal Clinical Impression(s) from Imaging Studies Chest X-Ray 02/17/20 13:10 IMPRESSION: No acute abnormality is seen. Electronically Signed: Daljit Jordan, at 13:50 EDT , Service support , Laboratory Data 02/17/20 02/17/20 02/17/20 12:35 12:35 12:35 WBC 3.2 L RBC 3.96 L Hgb 11.0 L Hct 34.5 L MCV 87.1 MCH 27.8 MCHC 31.9 L RDW Std Deviation 45.1 H RDW Coeff of [place] 14.1 Plt Count 151 MPV 9.9 Immature Gran % (Auto) 0.600 Neut % (Auto) 59.7 Lymph % (Auto) 22.4 [place] % (Auto) 13.6 H Eos % (Auto) 2.8 Baso % (Auto) 0.9 Absolute Neuts (auto) 1.9 L Absolute Lymphs (auto) 0.71 L Nucleated RBC % 0 D-Dimer Quant (PE/DVT) 0.47 Sodium 137 Potassium 3.7 Chloride 109 H Carbon Dioxide 21.0 Anion Gap 7 BUN 20 H Creatinine 0.88 Estim Creat Clear Calc 57.35 Est GFR (MDRD) Af Amer 83 Est GFR (MDRD) Non-Af 69 BUN/Creatinine Ratio 22.7 H Glucose 171 H Calcium 8.2 L Total Bilirubin 0.30 AST 24 ALT 20 Alkaline Phosphatase 107 Troponin I < 0.015 Total Protein 5.9 L Albumin 2.7 L Globulin 3.2 Albumin/Globulin Ratio 0.8 L Urine Color Urine Clarity Urine pH Ur Specific [place] Urine Protein Urine Glucose (UA) Urine Ketones Urine Occult Blood Urine Nitrite Urine Bilirubin Urine Urobilinogen Ur Leukocyte Esterase Urine RBC Urine WBC Ur Squamous Epith Cells Urine Bacteria Hyaline Casts Urine Mucus 02/17/20 13:25 WBC RBC Hgb Hct MCV MCH MCHC RDW Std Deviation RDW Coeff of [place] Plt Count MPV Immature Gran % (Auto) Neut % (Auto) Lymph % (Auto) [place] % (Auto) Eos % (Auto) Baso % (Auto) Absolute Neuts (auto) Absolute Lymphs (auto) Nucleated RBC % D-Dimer Quant (PE/DVT) Sodium Potassium Chloride Carbon Dioxide Anion Gap BUN Creatinine Estim Creat Clear Calc Est GFR (MDRD) Af Amer Est GFR (MDRD) Non-Af BUN/Creatinine Ratio Glucose Calcium Total Bilirubin AST ALT Alkaline Phosphatase Troponin I Total Protein Albumin Globulin Albumin/Globulin Ratio Urine Color Yellow Urine Clarity Clear Urine pH 6.0 Ur Specific [place] 1.020 Urine Protein 15 H Urine Glucose (UA) Normal Urine Ketones Negative Urine Occult Blood Negative Urine Nitrite Negative Urine Bilirubin 1 H Urine Urobilinogen 1 H Ur Leukocyte Esterase 25 H Urine RBC 0 SEEN Urine WBC 5-10 SEEN Ur Squamous Epith Cells 5-10 SEEN Urine Bacteria 1+ Hyaline Casts 0-5 SEEN Urine Mucus 2+ - Rhythm Strip Rhythm Strip: Sinus Rhythm Rate: 60 Ectopy: None - EKG Initial EKG Interpretation: Sinus Rhythm - Sinus rhythm at 60 bpm. IA interval 152 ms. QTC of 430 ms. No evidence of acute ischemia. - Medical Decision Making Appears well nontoxic. Orthostatic negative. Patient did have one blood pressure of 95 systolic. Was given 1 L of normal saline. Lab work within normal limits. Chest x-ray negative. EKG nonischemic. Patient feeling improved and able to ambulate through the department. Will be discharged home in stable condition. Impression: 1. Weakness 2. Dizziness 3. Transient hypotension ED Disposition - Plan for ED Patient: Disposition: Home or Assisted Living Instructions: ED Weakness [facility] Referrals: Tom Sherman MD [Primary Care Provider] - 2 Days
--- NOTE | 2020-02-17 13:10 | RAD_ITS ---
STUDY: X-RAY CHEST REASON FOR EXAM: Female, 64 years old. Weakness, chest pain TECHNIQUE: Single AP portable view of the chest. COMPARISON: Comparison is made with prior study dated 09/20/2019. FINDINGS: EKG electrodes are seen. The lungs are clear and expanded. There is no demonstrated pleural abnormality. Normal size heart. Normal mediastinum and sara. Normal visualized pulmonary arteries. Normal visualized aortic arch and descending thoracic aorta. There are degenerative changes of the visualized thoracic spine. Mild levoscoliosis. There is evidence of prior laminectomy and fusion of the cervical spine. There is no demonstrated abnormality of the visualized soft tissue structures of the upper abdomen. RAD/Chest 1 View (Portable) IMPRESSION: No acute abnormality is seen. Electronically Signed: Daljit Jordan, at 13:50 EDT , Service support ,
[2020-02-17 13:13] LABS: Absolute Lymphocyte Count 0.71 X10^3/uL (0.83-4.51); Absolute Neutrophil Count 1.9 X10^3/uL (2.0-7.7); Basophil# 0.03 X10^3/uL; Basophil% 0.9 % (0-1); Eosinophil# 0.09 X10^3/uL; Eosinophils% 2.8 % (0-5); Hematocrit 34.5 % (37-47); Lymphocyte # 0.71 X10^3/ul (4.0); Lymphocyte % 22.4 % (19-41); Mean Corp Hgb Conc 31.9 g/dL (32-36); Mean Corpuscular Hgb 27.8 pg (27.0-32.0); Mean Corpuscular Volume 87.1 fL (81-99); Mean Platelet Vol. 9.9 fl (6.2-12.0); Monocyte# 0.43 X10^3/uL; Monocyte% 13.6 % (0-10); NRBC Flagged by Analyzer 0 % (0-5); Neutrophil # 1.89 X10^3/uL (2.7-7.7); Neutrophil % 59.7 % (47-70); Platelet Count 151 K/mm3 (150-450); RBC Distribution Width CV 14.1 % (11.6-14.6); RBC Distribution Width SD 45.1 fl (35.1-43.9); Red Blood Count 3.96 M/mm3 (4.2-5.4); White Blood Count 3.2 K/mm3 (4.4-11.0)
[2020-02-17 13:22] LABS: D-Dimer Quantitative (DVT/PE) 0.47 FEU/ug/m (0.27-0.49)
[2020-02-17 13:30] LABS: ALB/GLOB Ratio 0.8 RATIO (0.9-2.4); AST(SGOT) 24 U/L (15-37); Alanine Aminotransfer ALT/SGPT 20 U/L (13-56); Albumin, Serum 2.7 g/dL (3.2-5.0); Alkaline Phosphatase 107 U/L (45-117); Anion Gap 7 (5-15); BUN 20 mg/dL (7-18); BUN/Creat Ratio 22.7 RATIO (10-20); Calcium,Total 8.2 mg/dL (8.5-10.1); Chloride 109 mmol/L (98-107); Creatinine, Serum 0.88 mg/dL (0.55-1.02); EST Glomerular Filtration Rate 69 mL/min (>60); Est Glom Filt Rate - Afr Amer 83 mL/min (>60); Estimated Creatinine Clearance 57.35 ml/min; Globulin 3.2 g/dL (2.2-4.2); Glucose 171 mg/dL (74-106); Potassium 3.7 mmol/L (3.5-5.1); Protein, Total 5.9 g/dL (6.4-8.2); Sodium Level 137 mmol/L (136-145)
[2020-02-17 13:39] LABS: Color, Urine Yellow (Yellow); Glucose, Dipstick Normal (Normal); Ketone-Dipstick Negative (Negative); Leukocyte Esterase-Dipstick 25 /ul (Negative); Nitrite-Dipstick Negative (Negative); Occult Blood-Urine Negative /ul (Negative); Protein-Dipstick 15 mg/dl (Negative); Urine Clarity Clear (Clear); Urine Urobilinogen 1 mg/dl (Normal)
[2020-02-17 13:40] LABS: Urine Bilirubin Dipstick 1 mg/dL (Negative)
[2020-02-17 13:55] LABS: Bacteria 1+ /hpf (None Seen); Red Blood Cells-Urine 0 SEEN /hpf (0-5); Squamous Epithelial Cells - UA 5-10 SEEN /hpf (5-10); White Blood Cells 5-10 SEEN /hpf (0-5)
[2020-02-17 13:56] LABS: Hyaline Cast 0-5 SEEN /lpf (0-5); Mucous, Urine 2+ /hpf (<or=2+)
[2020-02-17 14:53] VITALS: BP 105/60; BP 107/53; BP 131/68; PULSE 62; PULSE 65
[2020-02-17 15:56] VITALS: BP 105/65; PULSE 66; RESP 16; O2SAT 95
== END 2020-02-17 15:57 | disposition home or self-care (01) ==
PROVIDERS: Emergency Provider Emergency Medicine; PCP Internal Medicine
DX: R53.1 Weakness (principal); R42 Dizziness and giddiness; I95.89 Other hypotension; I25.10 Atherosclerotic heart disease of native coronary artery without angina pectoris; I48.0 Paroxysmal atrial fibrillation; I10 Essential (primary) hypertension; F17.200 Nicotine dependence, unspecified, uncomplicated; Z95.5 Presence of coronary angioplasty implant and graft; Z79.82 Long term (current) use of aspirin; Z79.02 Long term (current) use of 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/antiplatelets; Z79.899 Other long term (current) drug therapy
CPT/HCPCS: 71045; 80053; 81001; 84484; 85025; 85379; 93005; 99285; P9612

== ENCOUNTER 2020-04-05 18:53 | Emergency (ER) | payer MEDICARE, MEDICAID, SELFPAY ==
[2016-07-13 11:45] VITALS: BMI 31.4
[2020-04-05 18:54] VITALS: BP 131/62; PULSE 64; RESP 19; TEMP 36.6; O2SAT 100; BMI 25.7
--- NOTE | 2020-04-05 18:58 | EKG12_ITS ---
Test Reason : REPEAT CP Blood Pressure : / mmHG Vent. Rate : 059 BPM Atrial Rate : 059 BPM P-R Int : 118 ms QRS Dur : 086 ms QT Int : 452 ms P-R-T Axes : 030 -34 099 degrees QTc Int : 447 ms Sinus bradycardia Left axis deviation Low voltage QRS Septal infarct , age undetermined Inferior infarct , age undetermined Abnormal ECG Confirmed by DORYS LEMUS MD ([id number]), manager editorial YUNG MUNGUIA ([id number]) on 04/06/2020 2:15:24 PM Referred By: WAYLON Confirmed By:DORYS LEMUS MD
--- NOTE | 2020-04-05 18:58 | ED.VIS.GEN ---
History of Present Illness Chief Complaint: Chest Pain Informant: Patient Narrative: 4-year-old female presenting with left-sided chest pain which she states is stabbing-like pain. She states this started earlier today. She tried to take her nitro at home and this did not help. Patient also complains of headache and nausea x2 days. She is not had a fever, chills, cough, shortness of breath. - Past Medical History (1) Pancreatitis Status: Chronic (2) Atherosclerotic heart disease of [place] coronary artery without angina pectoris Status: Chronic (3) Chronic systolic (congestive) heart failure Status: Chronic (4) Essential (primary) hypertension Status: Chronic (5) History of ST elevation myocardial infarction (STEMI) Status: Chronic (6) Hyperlipemia Status: Chronic Past Medical History - Allergies and Home Meds Allergies/Adverse Reactions: Allergies indomethacin [From Indocin] Allergy (Verified 02/17/20 13:02) Hives indomethacin sodium [From Indocin] Allergy (Verified 02/17/20 13:02) Hives iodine Allergy (Verified 02/17/20 13:02) Hives propoxyphene napsylate [From Darvocet-N] Allergy (Verified 02/17/20 13:02) Out of control aripiprazole [From Abilify] Adverse Reaction (Verified 02/17/20 13:02) Other drool uncontrollably aspirin Adverse Reaction (Verified 02/17/20 13:02) Upset Stomach when taken in high doses clindamycin Adverse Reaction (Verified 02/17/20 13:02) Nausea metformin Adverse Reaction (Verified 02/17/20 13:02) Other IT CAUSES MY KIDNEYS TO DO WEIRD THINGS sumatriptan [From Imitrex] Adverse Reaction (Verified 02/17/20 13:02) Vomiting Primary Care Physician: Tom Sherman MD [Primary Care Provider] - Prior records reviewed: Yes Past Medical History: - - Reviewed in problem list Surgical History: adenoidectomy, angioplasty - Cardiac stent, tonsillectomy, - - L foot great toe ampuation, Back surgery x 3, L carpal tunnel surgery x 2, R carpal tunnel surgery x 1, R thumb reconstructive surgery. cervical spinal surgery february 27 at [facility]. Smoking Status: Current every day smoker - Family History Maternal Family History: Family History (Last Reviewed 09/20/19 @ 16:14 by Malini Bhat MIXER WHIPPED TOPPING, MIXER WHIPPED TOPPING-C) Father Cancer Mother Cancer Family History: Reports: Cancer - mother pancreatic ca Paternal Family History: Family History (Last Reviewed 09/20/19 @ 16:14 by Malini Bhat NP, MIXER WHIPPED TOPPING-C) Father Cancer Mother Cancer Family History: Reports: Cancer - father lung ca., - - Lung cancer Review of Systems General: Denies: Chills, Fever Eyes: Reports: Visual changes - left ENT: Denies: Rhinorrhea, Sore throat Cardiovascular: Reports: Chest pain Respiratory: Denies: Dyspnea, Cough, Dyspnea on exertion Gastrointestinal: Reports: Nausea. Denies: Abdominal pain Genitourinary: Reports: Dysuria. Denies: Hematuria Musculoskeletal: Denies: Myalgias, Arthralgias Skin: Denies: Rash, Abscess Neurological: Reports: Headache. Denies: Parasthesia, Numbness Physical Exam Vital Signs/Narrative: Vital Signs Temp Pulse Resp BP Pulse Ox 04/05/20 18:54 97.8 F 64 19 H 131/62 H 100 Inital Vital Signs reviewed: Yes General: Obese, No Acute Distress Head: Normocephalic, Atraumatic Eyes: Perrl, EOMI ENT: Moist mucous membranes, No rhinorrhea Cardiovascular: Regular rate, Regular rhythm Respiratory: No distress, CTA bilaterally Extremities: Nontender, No edema Skin: Normal color, No rash Neurological: Alert, Oriented x3 Psychological: Normal affect, Normal Mood Diagnostic/Tx/Re-eval Chest X-Ray - ED: 1 View Clinical Impression(s) from Imaging Studies Chest X-Ray 04/05/20 19:20 IMPRESSION: No definite acute or significant abnormality seen. Electronically Signed: Jayesh Bee MD at 19:45 EST , Service support , Laboratory Data 04/05/20 04/05/20 04/05/20 18:58 18:58 18:58 WBC 5.6 RBC 4.01 L Hgb 11.0 L Hct 35.9 L MCV 89.5 MCH 27.4 MCHC 30.6 L RDW Std Deviation 48.2 H RDW Coeff of Yeimi 14.6 Plt Count 229 MPV 10.3 Immature Gran % (Auto) 0.200 Neut % (Auto) 48.8 Lymph % (Auto) 31.4 [place] % (Auto) 11.4 H Eos % (Auto) 6.4 H Baso % (Auto) 1.8 H Absolute Neuts (auto) 2.8 Absolute Lymphs (auto) 1.77 Nucleated RBC % 0 D-Dimer Quant (PE/DVT) 0.37 Sodium 136 Potassium 4.1 Chloride 106 Carbon Dioxide 25.0 Anion Gap 5 BUN 21 H Creatinine 0.79 Estim Creat Clear Calc 63.88 Est GFR (MDRD) Af Amer 94 Est GFR (MDRD) Non-Af 78 BUN/Creatinine Ratio 26.7 H Glucose 197 H Calcium 8.7 Magnesium 1.9 Troponin I 0.018 Urine Color Urine Clarity Urine pH Ur Specific [place] Urine Protein Urine Glucose (UA) Urine Ketones Urine Occult Blood Urine Nitrite Urine Bilirubin Urine Urobilinogen Ur Leukocyte Esterase Urine RBC Urine WBC Ur Squamous Epith Cells Urine Bacteria Urine Mucus 04/05/20 04/05/20 19:42 22:05 WBC RBC Hgb Hct MCV MCH MCHC RDW Std Deviation RDW Coeff of Yeimi Plt Count MPV Immature Gran % (Auto) Neut % (Auto) Lymph % (Auto) [place] % (Auto) Eos % (Auto) Baso % (Auto) Absolute Neuts (auto) Absolute Lymphs (auto) Nucleated RBC % D-Dimer Quant (PE/DVT) Sodium Potassium Chloride Carbon Dioxide Anion Gap BUN Creatinine Estim Creat Clear Calc Est GFR (MDRD) Af Amer Est GFR (MDRD) Non-Af BUN/Creatinine Ratio Glucose Calcium Magnesium Troponin I < 0.015 Urine Color Yellow Urine Clarity Clear Urine pH 6.0 Ur Specific [place] 1.015 Urine Protein 15 H Urine Glucose (UA) Normal Urine Ketones Negative Urine Occult Blood Negative Urine Nitrite Negative Urine Bilirubin Negative Urine Urobilinogen 1 H Ur Leukocyte Esterase 100 H Urine RBC 0 SEEN Urine WBC 5-10 SEEN Ur Squamous Epith Cells 10-25 SEEN Urine Bacteria 1+ Urine Mucus 0 SEEN - Rhythm Strip Rhythm Strip: Sinus Rhythm Rate: 63 - EKG Initial EKG Interpretation: Sinus Rhythm, No Acute Injury Pattern Follow-up EKG Interpretation: Sinus Rhythm, No Acute Injury Pattern - Medical Decision Making 64-year-old female presenting with headache, nausea, atypical chest pain which feels like it sharp. She had EKG done on arrival which shows a sinus rhythm at 63 bpm without acute ischemic changes as interpreted by myself. Chest x-ray is negative as interpreted by myself and the radiologist. Initial troponin is negative. Blood work shows slight dehydration. Blood work shows no leukocytosis. Urinalysis is negative and appears contaminated. Patient had delta troponin which was also negative. Patient was treated with morphine and Zofran in the ED. She states she feels much improved. Although the patient has cardiac risk factors I do not believe her story sounds cardiac in nature. Her headache is resolved and she feels well. She has 2 - troponins. Negative D-dimer. I feel she is safe to go home at this time. She was given return precautions. Pression: 1. Headache 2. Nausea 3. Atypical chest pain ED Disposition - Plan for ED Patient: Disposition: Home or Assisted Living Instructions: ED Chest Pain, Uncertain Cause Referrals: Tom Sherman MD [Primary Care Provider] -
--- NOTE | 2020-04-05 19:20 | RAD_ITS ---
STUDY: X-RAY CHEST REASON FOR EXAM: Female, 64 years old. chest pain with radiation to left arm since today. headache x2 days, nausea x2 days TECHNIQUE: Single AP portable view of the chest. COMPARISON: 03/03/2018 FINDINGS: The lungs are clear and expanded. There is no demonstrated pleural abnormality. Normal size heart. Normal mediastinum and sara. Normal visualized pulmonary arteries. There is atherosclerotic tortuosity of the aortic arch and descending thoracic aorta. Normal visualized thoracic spine. Stable previous cervical spine surgery. Normal visualized ribs, clavicles, and shoulders. There is no demonstrated abnormality of the visualized soft tissue structures of the upper abdomen. RAD/Chest 1 View (Portable) IMPRESSION: No definite acute or significant abnormality seen. Electronically Signed: Jayesh Bee MD at 19:45 EST , Service support ,
[2020-04-05 19:23] LABS: Absolute Lymphocyte Count 1.77 X10^3/uL (0.83-4.51); Absolute Neutrophil Count 2.8 X10^3/uL (2.0-7.7); Basophil% 1.8 % (0-1); Eosinophil# 0.36 X10^3/uL; Eosinophils% 6.4 % (0-5); Hematocrit 35.9 % (37-47); Lymphocyte # 1.77 X10^3/ul (4.0); Lymphocyte % 31.4 % (19-41); Mean Corp Hgb Conc 30.6 g/dL (32-36); Mean Corpuscular Hgb 27.4 pg (27.0-32.0); Mean Corpuscular Volume 89.5 fL (81-99); Mean Platelet Vol. 10.3 fl (6.2-12.0); Monocyte# 0.64 X10^3/uL; Monocyte% 11.4 % (0-10); NRBC Flagged by Analyzer 0 % (0-5); Neutrophil # 2.75 X10^3/uL (2.7-7.7); Neutrophil % 48.8 % (47-70); Platelet Count 229 K/mm3 (150-450); RBC Distribution Width CV 14.6 % (11.6-14.6); RBC Distribution Width SD 48.2 fl (35.1-43.9); Red Blood Count 4.01 M/mm3 (4.2-5.4); White Blood Count 5.6 K/mm3 (4.4-11.0)
[2020-04-05] MEDS: Ondansetron 4 MG/2 ML Vial IV (19:34)
[2020-04-05] MEDS: Morphine 4 MG/ML Syringe IV ×2 (19:35→22:06)
[2020-04-05 19:43] LABS: D-Dimer Quantitative (DVT/PE) 0.37 FEU/ug/m (0.27-0.49)
[2020-04-05 19:44] VITALS: BP 135/66; PULSE 67; RESP 18; TEMP 36.6; O2SAT 96
[2020-04-05 19:44] LABS: Anion Gap 5 (5-15); BUN 21 mg/dL (7-18); BUN/Creat Ratio 26.7 RATIO (10-20); Calcium,Total 8.7 mg/dL (8.5-10.1); Chloride 106 mmol/L (98-107); Creatinine, Serum 0.79 mg/dL (0.55-1.02); EST Glomerular Filtration Rate 78 mL/min (>60); Est Glom Filt Rate - Afr Amer 94 mL/min (>60); Estimated Creatinine Clearance 63.88 ml/min; Glucose 197 mg/dL (74-106); Magnesium 1.9 mg/dL (1.6-2.6); Potassium 4.1 mmol/L (3.5-5.1); Sodium Level 136 mmol/L (136-145)
[2020-04-05 19:48] LABS: Mucous, Urine 0 SEEN /hpf (<or=2+); Red Blood Cells-Urine 0 SEEN /hpf (0-5)
[2020-04-05 19:51] LABS: Color, Urine Yellow (Yellow); Glucose, Dipstick Normal (Normal); Ketone-Dipstick Negative (Negative); Leukocyte Esterase-Dipstick 100 /ul (Negative); Nitrite-Dipstick Negative (Negative); Occult Blood-Urine Negative /ul (Negative); Protein-Dipstick 15 mg/dl (Negative); Specific Gravity, Urine 1.015 (1.002-1.030); Urine Bilirubin Dipstick Negative (Negative); Urine Clarity Clear (Clear); Urine Urobilinogen 1 mg/dl (Normal)
[2020-04-05 20:09] LABS: Bacteria 1+ /hpf (None Seen); Squamous Epithelial Cells - UA 10-25 SEEN /hpf (5-10); White Blood Cells 5-10 SEEN /hpf (0-5)
[2020-04-05 20:32] VITALS: BP 129/71; PULSE 64; RESP 18; TEMP 36.6; O2SAT 99
[2020-04-05 21:30] VITALS: BP 137/72; PULSE 62; RESP 18; TEMP 36.6; O2SAT 98
--- NOTE | 2020-04-05 21:58 | EKG12_ITS ---
Test Reason : CP Blood Pressure : / mmHG Vent. Rate : 063 BPM Atrial Rate : 063 BPM P-R Int : 158 ms QRS Dur : 090 ms QT Int : 484 ms P-R-T Axes : 033 -40 097 degrees QTc Int : 495 ms Normal sinus rhythm Left axis deviation Septal infarct , age undetermined Possible Lateral infarct , age undetermined Inferior infarct , age undetermined Abnormal ECG Confirmed by DORYS LEMUS MD ([id number]), legal editor YUNG MUNGUIA ([id number]) on 04/06/2020 2:16:26 PM Referred By: SAM Confirmed By:DORYS LEMUS MD
[2020-04-05 22:04] VITALS: BP 142/67; PULSE 67; RESP 15; TEMP 36.6; O2SAT 97; O2SAT 98
[2020-04-05 22:58] VITALS: PULSE 67
== END 2020-04-05 23:15 | disposition home or self-care (01) ==
PROVIDERS: Emergency Provider Student in an Organized Health Care Education/Training Program; PCP Internal Medicine
DX: R07.89 Other chest pain (principal); R51.9 Headache, unspecified; R11.0 Nausea; I25.10 Atherosclerotic heart disease of native coronary artery without angina pectoris; I11.0 Hypertensive heart disease with heart failure; I50.22 Chronic systolic (congestive) heart failure; I25.2 Old myocardial infarction; E78.5 Hyperlipidemia, unspecified; F17.200 Nicotine dependence, unspecified, uncomplicated; Z88.6 Allergy status to analgesic agent; Z95.5 Presence of coronary angioplasty implant and graft
CPT/HCPCS: 71045; 80048; 81001; 83735; 84484; 85025; 85379; 93005; 96361; 96374; 96375; 96376; 99285; J7040; A4216; J2405

== ENCOUNTER → 2020-04-20 19:13 | Emergency (ER) | payer MEDICARE, MEDICAID, SELFPAY ==
[2016-07-13 11:45] VITALS: BMI 31.4
[2020-04-16 13:09] VITALS: BMI 25.2
[2020-04-20 19:15] VITALS: BP 145/69; PULSE 87; RESP 18; TEMP 36.5; O2SAT 100; BMI 29.3
--- NOTE | 2020-04-20 19:45 | CT_ITS ---
STUDY: CT ABDOMEN AND PELVIS WITHOUT CONTRAST REASON FOR EXAM: Female, 64 years old. FLANK PAIN RADIATION DOSAGE (If Supplied By Facility): CTDIvol = ( 11.92 ) mGy, DLP = ( 553.86 ) mGycm TECHNIQUE: Transaxial images were obtained from the dome of the diaphragm to the symphysis pubis without oral contrast, and without intravenous contrast. Sagittal and coronal images were reconstructed. Individualized dose optimization techniques were used for this CT. COMPARISON: None. FINDINGS: The visualized lung bases are unremarkable. The visualized portions of the heart are within normal limits. Normal liver. Normal gallbladder and extrahepatic biliary system. Normal spleen. Normal pancreas. Normal bilateral adrenal glands. Normal right kidney. Normal left kidney. Normal visualized stomach. No frankly dilated loops of small bowel or transition point. There are multiple colonic diverticula consistent with diverticulosis. There is non-visualization of the appendix. There is diffuse atherosclerotic calcification of the abdominal aorta, without a demonstrated aneurysm. Normal inferior vena cava. Normal retroperitoneum. Normal urinary bladder. There are injection granulomata of the bilateral gluteal subcutaneous fat. Degenerative changes of the lumbar spine with laminectomy changes at L4-L5. CT/Abdomen/Pelvis without Cont IMPRESSION: No hydronephrosis or urinary tract calcifications. Electronically Signed: Conrad Schwartz MD (Brooks) at 21:11 EST , Service support ,
--- NOTE | 2020-04-20 19:46 | ED.VIS.GEN ---
History of Present Illness Chief Complaint: General Illness Informant: Patient Onset: Today Current Severity: Mild Maximum Severity: Moderate Narrative: Patient presents with right lateral abdominal pain that is been off and on all day. She states that she did vomit after eating tonight. She then went to the bathroom and noted some hematuria. She denies dysuria. She does report feeling urgency and frequency. - Past Medical History (1) Atherosclerotic heart disease of [place] coronary artery without angina pectoris Status: Chronic (2) Chronic systolic (congestive) heart failure Status: Chronic (3) Essential (primary) hypertension Status: Chronic (4) History of ST elevation myocardial infarction (STEMI) Status: Chronic (5) History of coronary artery stent placement Status: Chronic Comment: PCI-aspiration [id number] LAD 3.0 mm x 18 mm Resolute Stent and POBA-Mid D2 04/08/16 (6) Hyperlipemia Status: Chronic (7) Irritable bowel syndrome with diarrhea Status: Chronic (8) Ischemic cardiomyopathy Status: Chronic (9) Paroxysmal atrial fibrillation Status: Chronic Past Medical History - Allergies and Home Meds Allergies/Adverse Reactions: Allergies indomethacin [From Indocin] Allergy (Verified 04/20/20 19:21) Hives indomethacin sodium [From Indocin] Allergy (Verified 04/20/20 19:21) Hives iodine Allergy (Verified 04/20/20 19:21) Hives propoxyphene napsylate [From Darvocet-N] Allergy (Verified 04/20/20 19:21) Out of control aripiprazole [From Abilify] Adverse Reaction (Verified 04/20/20 19:21) Other drool uncontrollably aspirin Adverse Reaction (Verified 04/20/20 19:21) Upset Stomach when taken in high doses clindamycin Adverse Reaction (Verified 04/20/20 19:21) Nausea metformin Adverse Reaction (Verified 04/20/20 19:21) Other IT CAUSES MY KIDNEYS TO DO WEIRD THINGS sumatriptan [From Imitrex] Adverse Reaction (Verified 04/20/20 19:21) Vomiting Primary Care Physician: Tom Sherman MD [Primary Care Provider] - Prior records reviewed: Yes Surgical History: adenoidectomy, angioplasty - Cardiac stent, tonsillectomy, - - L foot great toe ampuation, Back surgery x 3, L carpal tunnel surgery x 2, R carpal tunnel surgery x 1, R thumb reconstructive surgery. cervical spinal surgery february 27 at [facility]. Smoking Status: Current every day smoker - Family History Maternal Family History: Family History (Last Reviewed 04/16/20 @ 16:02 by Fatuma LOPEZ, PA) Father Cancer Mother Cancer Family History: Reports: Cancer - mother pancreatic ca Paternal Family History: Family History (Last Reviewed 04/16/20 @ 16:02 by Fatuma LOPEZ, PA) Father Cancer Mother Cancer Family History: Reports: Cancer - father lung ca., - - Lung cancer Review of Systems General: Denies: Chills, Fever Eyes: Denies: Visual changes - bilaterally ENT: Denies: Bilateral ear pain Cardiovascular: Denies: Chest pain Respiratory: Denies: Dyspnea, Cough Gastrointestinal: Reports: Abdominal pain, Nausea, Vomiting Genitourinary: Reports: Hematuria, Frequency Musculoskeletal: Denies: Swelling, Extremity Pain Skin: Denies: Rash Hematologic: Denies: Easy bruising, Easy bleeding Allergy: Denies: Uticaria Physical Exam Vital Signs/Narrative: Vital Signs Temp Pulse Resp BP Pulse Ox 04/20/20 19:15 97.7 F L 87 18 145/69 H 100 Inital Vital Signs reviewed: Yes General: Well nourished, Well developed Head: Normocephalic ENT: Moist mucous membranes Neck: Supple Cardiovascular: Regular rate, Regular rhythm Respiratory: No distress, CTA bilaterally Abdomen: Soft, Nontender Back: CVA tenderness Skin: Normal color Neurological: Alert, Oriented x3 Psychological: Normal affect Diagnostic/Tx/Re-eval Impressions Abdomen/Pelvis CT 04/20/20 19:45 IMPRESSION: No hydronephrosis or urinary tract calcifications. Electronically Signed: Conrad Schwartz MD (Brooks) at 21:11 EST , Service support , 04/20/20 19:45 Abdomen/Pelvis without Cont [CT] Stat Laboratory Results 04/20/20 04/20/20 04/20/20 19:27 20:08 20:08 WBC 6.8 RBC 3.73 L Hgb 10.5 L Hct 33.7 L MCV 90.3 MCH 28.2 MCHC 31.2 L RDW Std Deviation 51.0 H RDW Coeff of Yeimi 15.3 H Plt Count 179 MPV 9.8 Immature Gran % (Auto) 0.300 Neut % (Auto) 64.2 Lymph % (Auto) 19.3 [place] % (Auto) 9.9 Eos % (Auto) 5.0 Baso % (Auto) 1.3 H Absolute Neuts (auto) 4.4 Absolute Lymphs (auto) 1.32 Nucleated RBC % 0 Sodium 140 Potassium 4.3 Chloride 112 H Carbon Dioxide 23.0 Anion Gap 5 BUN 27 H Creatinine 0.73 Estim Creat Clear Calc 69.14 Est GFR (MDRD) Af Amer 102 Est GFR (MDRD) Non-Af 85 BUN/Creatinine Ratio 36.8 H Glucose 97 Calcium 8.4 L Total Bilirubin 0.20 Direct Bilirubin 0.12 AST 18 ALT 18 Alkaline Phosphatase 101 Total Protein 5.8 L Albumin 2.8 L Globulin 3.0 Urine Color Yellow Urine Clarity Clear Urine pH 6.0 Ur Specific [place] 1.015 Urine Protein 30 H Urine Glucose (UA) Normal Urine Ketones Negative Urine Occult Blood Negative Urine Nitrite Negative Urine Bilirubin Negative Urine Urobilinogen Normal Ur Leukocyte Esterase Negative Urine RBC 0 SEEN Urine WBC 0 SEEN Ur Squamous Epith Cells 0-5 SEEN Urine Bacteria 1+ Urine Mucus 0 SEEN - Medical Decision Making Patient was given morphine, Toradol, Zofran, and IV fluids. Urinalysis is unremarkable. Blood work and CT are also unremarkable at this time. Patient may have passed a small kidney stone earlier when she did pass blood, but no evidence of significant hydroureter at this time. Patient will be given 10 tabs of Irvona to help with pain to the weekend and will follow with her PCP on Thursday. ED Disposition - Plan for ED Patient: Disposition: Home or Assisted Living Diagnosis: Right flank pain Instructions: ED Flank Pain, Uncertain Cause Prescriptions: Hydrocodone Bitart/Apap 5-325 [Irvona 5MG-325MG] 1 tablet PO Q6H PRN PRN 3 Days #10 tablet PRN Reason: Pain Transmission Status: Sent to [facility] Referrals: Tom Sherman MD [Primary Care Provider] - 3-5 Days if not improving
[2020-04-20 20:04] LABS: Color, Urine Yellow (Yellow); Glucose, Dipstick Normal (Normal); Ketone-Dipstick Negative (Negative); Leukocyte Esterase-Dipstick Negative /ul (Negative); Mucous, Urine 0 SEEN /hpf (<or=2+); Nitrite-Dipstick Negative (Negative); Occult Blood-Urine Negative /ul (Negative); Protein-Dipstick 30 mg/dl (Negative); Red Blood Cells-Urine 0 SEEN /hpf (0-5); Specific Gravity, Urine 1.015 (1.002-1.030); Urine Bilirubin Dipstick Negative (Negative); Urine Clarity Clear (Clear); Urine Urobilinogen Normal (Normal); White Blood Cells 0 SEEN /hpf (0-5)
[2020-04-20 20:11] LABS: Bacteria 1+ /hpf (None Seen); Squamous Epithelial Cells - UA 0-5 SEEN /hpf (5-10)
[2020-04-20] MEDS: 0.9% Normal Saline 1,000 ML 150 ML IV (20:14)
[2020-04-20] MEDS: Ketorolac 30 MG/ML Syringe IV (20:14)
[2020-04-20] MEDS: Morphine 4 MG/ML Syringe IV (20:14)
[2020-04-20] MEDS: Ondansetron 4 MG/2 ML Vial IV (20:14)
[2020-04-20 20:20] LABS: Absolute Lymphocyte Count 1.32 X10^3/uL (0.83-4.51); Absolute Neutrophil Count 4.4 X10^3/uL (2.0-7.7); Basophil# 0.09 X10^3/uL; Basophil% 1.3 % (0-1); Eosinophil# 0.34 X10^3/uL; Hematocrit 33.7 % (37-47); Hemoglobin 10.5 g/dL (12.0-15.0); Lymphocyte # 1.32 X10^3/ul (4.0); Lymphocyte % 19.3 % (19-41); Mean Corp Hgb Conc 31.2 g/dL (32-36); Mean Corpuscular Hgb 28.2 pg (27.0-32.0); Mean Corpuscular Volume 90.3 fL (81-99); Mean Platelet Vol. 9.8 fl (6.2-12.0); Monocyte# 0.68 X10^3/uL; Monocyte% 9.9 % (0-10); NRBC Flagged by Analyzer 0 % (0-5); Neutrophil # 4.39 X10^3/uL (2.7-7.7); Neutrophil % 64.2 % (47-70); Platelet Count 179 K/mm3 (150-450); RBC Distribution Width CV 15.3 % (11.6-14.6); Red Blood Count 3.73 M/mm3 (4.2-5.4); White Blood Count 6.8 K/mm3 (4.4-11.0)
[2020-04-20 20:34] LABS: AST(SGOT) 18 U/L (15-37); Alanine Aminotransfer ALT/SGPT 18 U/L (13-56); Albumin, Serum 2.8 g/dL (3.2-5.0); Alkaline Phosphatase 101 U/L (45-117); Anion Gap 5 (5-15); BUN 27 mg/dL (7-18); BUN/Creat Ratio 36.8 RATIO (10-20); Bilirubin, Direct 0.12 mg/dL (0.00-0.30); Calcium,Total 8.4 mg/dL (8.5-10.1); Chloride 112 mmol/L (98-107); Creatinine, Serum 0.73 mg/dL (0.55-1.02); EST Glomerular Filtration Rate 85 mL/min (>60); Est Glom Filt Rate - Afr Amer 102 mL/min (>60); Estimated Creatinine Clearance 69.14 ml/min; Glucose 97 mg/dL (74-106); Potassium 4.3 mmol/L (3.5-5.1); Protein, Total 5.8 g/dL (6.4-8.2); Sodium Level 140 mmol/L (136-145)
[2020-04-20] MEDS: HYDROcodone Bitartrate/Apap 5/325 Tablet PO (21:37)
[2020-04-20 21:41] VITALS: BP 145/82; PULSE 71; RESP 18; O2SAT 98
== END | disposition home or self-care (01) ==
PROVIDERS: Emergency Provider Emergency Medicine; PCP Internal Medicine
DX: R10.9 Unspecified abdominal pain (principal); R31.9 Hematuria, unspecified; I25.10 Atherosclerotic heart disease of native coronary artery without angina pectoris; I11.0 Hypertensive heart disease with heart failure; I50.22 Chronic systolic (congestive) heart failure; I25.5 Ischemic cardiomyopathy; I48.0 Paroxysmal atrial fibrillation; I25.2 Old myocardial infarction; E78.5 Hyperlipidemia, unspecified; K58.9 Irritable bowel syndrome, unspecified; F17.200 Nicotine dependence, unspecified, uncomplicated; Z95.5 Presence of coronary angioplasty implant and graft; Z79.899 Other long term (current) drug therapy
CPT/HCPCS: 74176; 80048; 80076; 81001; 85025; 96361; 96374; 96375; 99285; J7030; J2405

== ENCOUNTER → 2020-05-11 | Outpatient (CLI) | payer MEDICARE, MEDICAID, SELFPAY ==
[2016-07-13 11:45] VITALS: BMI 31.4
[2020-05-11 13:13] VITALS: BMI 28.8
[2020-05-11 14:07] LABS: Mucous, Urine 0 SEEN /hpf (<or=2+); Red Blood Cells-Urine 0 SEEN /hpf (0-5); Squamous Epithelial Cells - UA 0 SEEN /hpf (5-10); White Blood Cells 0 SEEN /hpf (0-5)
[2020-05-11 15:11] LABS: Color, Urine Yellow (Yellow); Glucose, Dipstick 250 mg/dl (Normal); Ketone-Dipstick Negative (Negative); Leukocyte Esterase-Dipstick 25 /ul (Negative); Nitrite-Dipstick Negative (Negative); Occult Blood-Urine Negative /ul (Negative); Protein-Dipstick Negative (Negative); Urine Bilirubin Dipstick Negative (Negative); Urine Clarity Clear (Clear); Urine Urobilinogen Normal (Normal)
[2020-05-11 15:23] LABS: Bacteria 3+ /hpf (None Seen)
== END | disposition home or self-care (01) ==
LOC: LABSPEC 14:06
PROVIDERS: PCP Internal Medicine; Referring Provider Internal Medicine; Visit Provider Internal Medicine
DX: N39.0 Urinary tract infection, site not specified (principal)
CPT/HCPCS: 81001; 87077; 87086; 87088; 87186

== ENCOUNTER 2020-06-21 09:56 | Emergency (ER) | payer MEDICARE, MEDICAID, SELFPAY ==
[2016-07-13 11:45] VITALS: BMI 31.4
[2020-05-11 13:13] VITALS: BMI 28.8
[2020-06-21 10:00] VITALS: BP 153/73; PULSE 73; RESP 16; TEMP 36.8; O2SAT 99; BMI 30.4
[2020-06-21 10:09] VITALS: BP 153/73; PULSE 73; RESP 16; TEMP 36.8; O2SAT 99
--- NOTE | 2020-06-21 10:22 | ED.DCSUM_ITS ---
- ER Visit Summary Date of Service: 06/21/20 Chief Complaint: Abdominal pain History of Present Illness: The patient is a 64 F who presents with abdominal pain and bladder spasms that began yesterday. Patient states the pain is over the right flank area. Patient describes the pain is sharp. Patient states nothing makes it better and nothing makes it worse. Patient admits to nausea but denies any vomiting. Patient admits to some hematuria but denies any dysuria. Patient denies any fevers or chills. Patient does have a history of multiple sclerosis and atrial fibrillation. Patient is a smoker. Physical Examination: Vital signs are stable. Patient is afebrile. Patient is in no acute distress. Oral mucosa is pink and moist. Neck is supple. Trachea is midline. There is no JVD noted. Heart was regular rate and rhythm. Lungs are clear and equal bilaterally. Abdomen is soft. Bowel sounds are normal. There is mild right upper quadrant and right CVA tenderness. There is no rebound or guarding noted. Skin is warm dry. Cranial nerves II through XII are intact. There are no focal motor or sensory deficits noted. Extremities are intact. There is no calf tenderness or edema. Test Results: CBC showed a mild anemia with a hemoglobin of 9.5 and hematocrit of 30.9. Comprehensive metabolic profile was essentially within normal limits. Lipase was normal. Urinalysis does not show evidence of urinary tract infection. CT scan of the abdomen pelvis was obtained. There is no acute process noted. This was interpreted by the radiologist and reviewed by myself. Emergency Department Course and Treatment: Patient was given morphine and Zofran here. Patient was feeling better on reevaluation. Patient was instructed to follow-up with her primary care physician in 5 to 7 days. Patient understood and was agreeable with the plan. All questions were answered. Disposition: Discharge home Impression: Abdominal pain This note was generated with [employer] dictation software. It may contain incorrect words, spelling, and punctuation that were not noted in review of the chart prior to signing ED Disposition - Plan for ED Patient: Disposition: Home or Assisted Living Diagnosis: Abdominal pain Instructions: ED Abdominal Pain Unkn Cause Fem Prescriptions: Hydrocodone Bitart/Apap 5-325 [[place] 5MG-325MG] 1 tab PO Q6H PRN PRN 3 Days #10 tab PRN Reason: Pain Prescription Printed Ondansetron [Zofran Odt] 4 mg PO Q8H PRN PRN #10 tab PRN Reason: Nausea Prescription Printed Referrals: Tom Sherman MD [Primary Care Provider] - 3-5 Days
[2020-06-21 10:34] LABS: Absolute Neutrophil Count 3.5 X10^3/uL (2.0-7.7); Basophil% 1.7 % (0-1); Eosinophil# 0.29 X10^3/uL; Eosinophils% 4.9 % (0-5); Hematocrit 30.9 % (37-47); Hemoglobin 9.5 g/dL (12.0-15.0); Lymphocyte % 23.8 % (19-41); Mean Corp Hgb Conc 30.7 g/dL (32-36); Mean Corpuscular Hgb 27.8 pg (27.0-32.0); Mean Corpuscular Volume 90.4 fL (81-99); Mean Platelet Vol. 9.6 fl (6.2-12.0); Monocyte# 0.61 X10^3/uL; Monocyte% 10.4 % (0-10); NRBC Flagged by Analyzer 0 % (0-5); Neutrophil # 3.47 X10^3/uL (2.7-7.7); Platelet Count 194 K/mm3 (150-450); RBC Distribution Width CV 13.9 % (11.6-14.6); RBC Distribution Width SD 45.9 fl (35.1-43.9); Red Blood Count 3.42 M/mm3 (4.2-5.4); White Blood Count 5.9 K/mm3 (4.4-11.0)
[2020-06-21 10:51] LABS: ALB/GLOB Ratio 0.9 RATIO (0.9-2.4); AST(SGOT) 15 U/L (15-37); Alanine Aminotransfer ALT/SGPT 13 U/L (13-56); Albumin, Serum 2.6 g/dL (3.2-5.0); Alkaline Phosphatase 94 U/L (45-117); Anion Gap 6 (5-15); BUN 27 mg/dL (7-18); BUN/Creat Ratio 36.1 RATIO (10-20); Calcium,Total 8.7 mg/dL (8.5-10.1); Chloride 107 mmol/L (98-107); Creatinine, Serum 0.75 mg/dL (0.55-1.02); EST Glomerular Filtration Rate 83 mL/min (>60); Est Glom Filt Rate - Afr Amer 100 mL/min (>60); Estimated Creatinine Clearance 67.29 ml/min; Globulin 2.9 g/dL (2.2-4.2); Glucose 167 mg/dL (74-106); Lipase 154 U/L (73-393); Potassium 4.3 mmol/L (3.5-5.1); Protein, Total 5.5 g/dL (6.4-8.2); Sodium Level 135 mmol/L (136-145)
[2020-06-21] MEDS: Morphine 4 MG/ML Syringe IV (11:15)
[2020-06-21] MEDS: Ondansetron 4 MG/2 ML Vial IV (11:15)
--- NOTE | 2020-06-21 11:45 | CT_ITS ---
STUDY: CT ABDOMEN AND PELVIS WITHOUT CONTRAST REASON FOR EXAM: Female, 64 years old. Pain RADIATION DOSAGE (If Supplied By Facility): CTDIvol = ( 11.77 ) mGy, DLP = ( 567.53 ) mGycm TECHNIQUE: Transaxial images were obtained from the dome of the diaphragm to the symphysis pubis without oral contrast, and without intravenous contrast. Sagittal and coronal images were reconstructed. Individualized dose optimization techniques were used for this CT. COMPARISON: Comparison is made with prior study dated 11/20/2017. FINDINGS: The visualized lung bases are unremarkable. Coronary artery calcification. Normal liver. Normal gallbladder and extrahepatic biliary system. Normal spleen. Normal pancreas. Normal bilateral adrenal glands. Normal right kidney. Normal left kidney. Normal visualized stomach. Normal small intestine. Normal colon. There is non-visualization of the appendix. There is diffuse atherosclerotic calcification of the abdominal aorta, without a demonstrated aneurysm. Normal inferior vena cava. There is borderline retroperitoneal lymphadenopathy with enlarged nodes no greater than 10mm in the short axis diameter. Normal urinary bladder. There is evidence of a bilateral calcified injection granulomas in both buttocks. There are diffuse degenerative changes of the visualized lumbar spine. Prior laminectomy at L4-L5 level with disc space narrowing. Dextroscoliosis. CT/Abdomen/Pelvis without Cont IMPRESSION: No acute abnormality is seen. Electronically Signed: Daljit Jordan MD at 12:20 EST , Service support ,
[2020-06-21 11:49] LABS: Mucous, Urine 0 SEEN /hpf (<or=2+); Red Blood Cells-Urine 0 SEEN /hpf (0-5); White Blood Cells 0 SEEN /hpf (0-5)
[2020-06-21 11:52] LABS: Color, Urine Yellow (Yellow); Glucose, Dipstick Normal (Normal); Ketone-Dipstick Negative (Negative); Leukocyte Esterase-Dipstick 25 /ul (Negative); Nitrite-Dipstick Negative (Negative); Occult Blood-Urine 10 /ul (Negative); Protein-Dipstick Negative (Negative); Specific Gravity, Urine 1.015 (1.002-1.030); Urine Bilirubin Dipstick Negative (Negative); Urine Clarity Clear (Clear); Urine Urobilinogen Normal (Normal)
[2020-06-21 11:59] LABS: Squamous Epithelial Cells - UA 0-5 SEEN /hpf (5-10)
[2020-06-21 12:01] LABS: Bacteria RARE /hpf (None Seen)
[2020-06-21 13:30] VITALS: BP 141/77; PULSE 57; RESP 18; TEMP 36.6
== END 2020-06-21 13:58 | disposition home or self-care (01) ==
PROVIDERS: Emergency Provider Emergency Medicine; PCP Internal Medicine
DX: R10.9 Unspecified abdominal pain (principal); I48.91 Unspecified atrial fibrillation; G35 Multiple sclerosis; F17.200 Nicotine dependence, unspecified, uncomplicated; Z79.82 Long term (current) use of aspirin; Z79.02 Long term (current) use of 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/antiplatelets; Z79.899 Other long term (current) drug therapy
CPT/HCPCS: 74176; 80053; 81001; 83690; 85025; 96374; 96375; 99285; A4216; J2405

== ENCOUNTER 2020-07-05 13:38 | Emergency (ER) | payer MEDICARE, MEDICAID, SELFPAY ==
[2016-07-13 11:45] VITALS: BMI 31.4
[2020-07-05 13:38] VITALS: BMI 28.8
[2020-07-05 13:40] VITALS: BP 123/65; PULSE 64; RESP 16; TEMP 36.4; O2SAT 96; BMI 30.5
[2020-07-05 14:42] LABS: Absolute Lymphocyte Count 1.51 X10^3/uL (0.83-4.51); Absolute Neutrophil Count 3.7 X10^3/uL (2.0-7.7); Basophil# 0.09 X10^3/uL; Basophil% 1.4 % (0-1); Eosinophil# 0.34 X10^3/uL; Eosinophils% 5.5 % (0-5); Hematocrit 30.5 % (37-47); Hemoglobin 9.5 g/dL (12.0-15.0); Lymphocyte # 1.51 X10^3/ul (4.0); Lymphocyte % 24.2 % (19-41); Mean Corp Hgb Conc 31.1 g/dL (32-36); Mean Corpuscular Hgb 27.9 pg (27.0-32.0); Mean Corpuscular Volume 89.4 fL (81-99); Mean Platelet Vol. 10.2 fl (6.2-12.0); Monocyte% 9.6 % (0-10); NRBC Flagged by Analyzer 0 % (0-5); Neutrophil # 3.67 X10^3/uL (2.7-7.7); Platelet Count 230 K/mm3 (150-450); RBC Distribution Width CV 14.2 % (11.6-14.6); RBC Distribution Width SD 45.5 fl (35.1-43.9); Red Blood Count 3.41 M/mm3 (4.2-5.4); White Blood Count 6.2 K/mm3 (4.4-11.0)
[2020-07-05] MEDS: DiphenhydrAMINE 50 MG/ML Syringe 25 MG IV (14:44)
[2020-07-05] MEDS: 0.9% Normal Saline 1,000 ML 1000 ML IV (14:45)
[2020-07-05] MEDS: Metoclopramide 10 MG/2 ML Vial IV (14:47)
--- NOTE | 2020-07-05 14:53 | ED.VISSUMM ---
- ER Visit Summary Date of Service: 07/05/20 Chief Complaint: Nausea, vomiting, diarrhea History of Present Illness: The patient is a 64 F with nausea, vomiting, diarrhea. Symptoms started yesterday. Nonbloody. Associate with a headache. Denies fever or chills. Her blood sugar was also reading high. It was 190 for EMS. No recent antibiotics or hospitalizations. No abdominal pain. No other associated symptoms. Physical Examination: Afebrile and vital signs unremarkable. Alert and oriented. No acute distress. Nontoxic. Heart regular. Lungs clear. Abdomen soft. Skin appears normal. Test Results: Results pending at this time. Emergency Department Course and Treatment: Patient was treatment fluids, Benadryl, Reglan for nausea and headache. She does not need imaging at this time based on her history and symptoms and exam. We will check some labs and reassess. Hemoglobin 9.5, stable. Glucose 183. Otherwise labs all fairly unremarkable. On reevaluation, symptoms have improved. Vitals are stable. No further vomiting. Patient will be discharged with a course of Zofran as needed. Follow-up with primary care or return if worse. Treatment Plan: As above Disposition: Discharge Impression: Nausea, vomiting, diarrhea This note was generated with [employer] dictation software. It may contain incorrect words, spelling, and punctuation that were not noted in review of the chart prior to signing ED Disposition - Plan for ED Patient: Referrals: Tom Sherman MD [Primary Care Provider] -
[2020-07-05 14:57] LABS: Albumin, Serum 2.6 g/dL (3.2-5.0); BUN 22 mg/dL (7-18); BUN/Creat Ratio 25.6 RATIO (10-20); Creatinine, Serum 0.86 mg/dL (0.55-1.02); EST Glomerular Filtration Rate 70 mL/min (>60); Est Glom Filt Rate - Afr Amer 85 mL/min (>60); Estimated Creatinine Clearance 58.68 ml/min; Globulin 2.9 g/dL (2.2-4.2); Glucose 183 mg/dL (74-106); Protein, Total 5.5 g/dL (6.4-8.2)
[2020-07-05 14:58] LABS: ALB/GLOB Ratio 0.9 RATIO (0.9-2.4); AST(SGOT) 21 U/L (15-37); Alanine Aminotransfer ALT/SGPT 19 U/L (13-56); Alkaline Phosphatase 86 U/L (45-117); Anion Gap 7 (5-15); Calcium,Total 8.9 mg/dL (8.5-10.1); Chloride 104 mmol/L (98-107); Lipase 102 U/L (73-393); Potassium 4.6 mmol/L (3.5-5.1); Sodium Level 133 mmol/L (136-145)
--- NOTE | 2020-07-05 15:10 | ED.DEP ---
ED Disposition - Plan for ED Patient: Instructions: ED Diet for Vomiting or Diarrhea Adult Prescriptions: Ondansetron [Zofran Odt] 4 mg PO Q8H PRN PRN #10 tab PRN Reason: Nausea Prescription Printed Referrals: Tom Sherman MD [Primary Care Provider] -
[2020-07-05 15:57] VITALS: BP 125/73; PULSE 68; RESP 18; O2SAT 96
== END 2020-07-05 16:00 | disposition home or self-care (01) ==
LOC: ED 14:59
PROVIDERS: Emergency Provider Emergency Medicine; PCP Internal Medicine
DX: R11.2 Nausea with vomiting, unspecified (principal); R19.7 Diarrhea, unspecified; F17.200 Nicotine dependence, unspecified, uncomplicated; I25.10 Atherosclerotic heart disease of native coronary artery without angina pectoris; E78.00 Pure hypercholesterolemia, unspecified; I11.0 Hypertensive heart disease with heart failure; I50.9 Heart failure, unspecified; Z79.82 Long term (current) use of aspirin
CPT/HCPCS: 80053; 83690; 85025; 96374; 96375; 99285; J7030; A4216

== ENCOUNTER 2020-07-20 17:52 | Observation (INO) | payer MEDICARE, MEDICAID, SELFPAY ==
[2016-07-13 11:45] VITALS: BMI 31.4
[2020-07-20] VITALS (8 sets, daily range): BP systolic 111–155; BP diastolic 59–70; PULSE 67–78; RESP 12–20; TEMP 36–36.7; O2SAT 95–98; BMI 30.9; BMI 29.7; BMI 29.8
--- NOTE | 2020-07-20 18:11 | EKG12_ITS ---
Test Reason : Blood Pressure : / mmHG Vent. Rate : 067 BPM Atrial Rate : 067 BPM P-R Int : 146 ms QRS Dur : 092 ms QT Int : 428 ms P-R-T Axes : 027 -46 061 degrees QTc Int : 452 ms Normal sinus rhythm Left axis deviation Inferior infarct , age undetermined Anterolateral infarct , age undetermined Abnormal ECG Confirmed by ALLAN WITT, DORYS ([id number]), restaurant expeditor YUNG MUNGUIA ([id number]) on 07/23/2020 1:49:39 PM Referred By: PRITI Confirmed By:DORYS LEMUS MD
--- NOTE | 2020-07-20 18:13 | CT_ITS ---
STUDY: CT ABDOMEN AND PELVIS WITHOUT CONTRAST REASON FOR EXAM: Female, 64 years old. Right flank pain for 2 hours. History of renal disease, atrial fibrillation, coronary artery disease and CHF. RADIATION DOSAGE (If Supplied By Facility): CTDIvol = ( 15.14 ) mGy, DLP = ( 729.77 ) mGycm TECHNIQUE: Transaxial images were obtained from the dome of the diaphragm to the symphysis pubis without oral contrast, and without intravenous contrast. Sagittal and coronal images were reconstructed. Individualized dose optimization techniques were used for this CT. COMPARISON: 06/21/2020. FINDINGS: The visualized lung bases are unremarkable. The visualized portions of the heart are within normal limits. Normal liver. Normal gallbladder and extrahepatic biliary system. Normal spleen. Normal pancreas. Normal bilateral adrenal glands. Normal right kidney. Normal left kidney. Normal visualized ureters. Normal visualized stomach. Normal small intestine. Normal colon. The appendix is visualized and appears normal. There is diffuse atherosclerotic calcification of the abdominal aorta, without a demonstrated aneurysm. Normal inferior vena cava. Normal retroperitoneum. Normal urinary bladder. Normal uterus. There is no adnexal mass. There is no pelvic lymphadenopathy. No free air or free fluid is seen within the peritoneal cavity. Normal abdominal wall. There are diffuse degenerative changes of the visualized lumbar spine. CT/Abdomen/Pelvis without Cont IMPRESSION: 1. No evidence for acute abdominal or pelvic process. 2. Atherosclerotic changes of the abdominal aorta without aneurysm. 3. Degenerative changes of the lumbar spine. Electronically Signed: Casey Dominguez DO at 19:45 EDT Tel [phone], Service support ,
[2020-07-20 18:22] LABS: Absolute Lymphocyte Count 1.98 X10^3/uL (0.83-4.51); Absolute Neutrophil Count 3.5 X10^3/uL (2.0-7.7); Basophil# 0.08 X10^3/uL; Basophil% 1.2 % (0-1); Eosinophil# 0.36 X10^3/uL; Eosinophils% 5.3 % (0-5); Hematocrit 31.6 % (37-47); Hemoglobin 9.8 g/dL (12.0-15.0); Lymphocyte # 1.98 X10^3/ul (4.0); Lymphocyte % 29.4 % (19-41); Mean Corpuscular Hgb 28.2 pg (27.0-32.0); Mean Corpuscular Volume 91.1 fL (81-99); Mean Platelet Vol. 10.5 fl (6.2-12.0); Monocyte# 0.78 X10^3/uL; Monocyte% 11.6 % (0-10); NRBC Flagged by Analyzer 0 % (0-5); Neutrophil # 3.52 X10^3/uL (2.7-7.7); Neutrophil % 52.2 % (47-70); Platelet Count 281 K/mm3 (150-450); RBC Distribution Width SD 52.4 fl (35.1-43.9); Red Blood Count 3.47 M/mm3 (4.2-5.4); White Blood Count 6.7 K/mm3 (4.4-11.0)
[2020-07-20 18:36] LABS: Anion Gap 8 (5-15); BUN 21 mg/dL (7-18); BUN/Creat Ratio 25.9 RATIO (10-20); Calcium,Total 9.2 mg/dL (8.5-10.1); Chloride 106 mmol/L (98-107); Creatinine, Serum 0.81 mg/dL (0.55-1.02); EST Glomerular Filtration Rate 75 mL/min (>60); Est Glom Filt Rate - Afr Amer 91 mL/min (>60); Estimated Creatinine Clearance 62.31 ml/min; Glucose 140 mg/dL (74-106); Potassium 4.5 mmol/L (3.5-5.1); Sodium Level 137 mmol/L (136-145)
[2020-07-20 18:40] LABS: D-Dimer Quantitative (DVT/PE) 0.42 FEU/ug/m (0.27-0.49)
[2020-07-20] MEDS: Morphine 4 MG/ML Syringe IV (18:55)
[2020-07-20] MEDS: Ondansetron 4 MG/2 ML Vial IV ×2 (18:55→22:37)
[2020-07-20] MEDS: 0.9% Normal Saline 1,000 ML 150 ML IV (18:55)
--- NOTE | 2020-07-20 18:55 | RAD_ITS ---
STUDY: X-RAY CHEST REASON FOR EXAM: Female, 64 years old. Chest pain. TECHNIQUE: Single AP portable view of the chest. COMPARISON: 03/03/2018. FINDINGS: The lungs are clear and expanded. There is no demonstrated pleural abnormality. Normal size heart. Normal mediastinum and sara. Normal visualized pulmonary arteries. Normal visualized aortic arch and descending thoracic aorta. There are diffuse degenerative changes of the visualized thoracic spine. Again seen is surgical fusion of the cervical spine. Normal visualized ribs, clavicles, and shoulders. There is no demonstrated abnormality of the visualized soft tissue structures of the upper abdomen. RAD/Chest 1 View (Portable) IMPRESSION: No acute cardiopulmonary disease or major interval change. Electronically Signed: Casey Dominguez DO at 19:43 EDT Tel [phone], Service support ,
--- NOTE | 2020-07-20 19:59 | ED.DCSUM_ITS ---
- ER Visit Summary Date of Service: 07/20/20 Chief Complaint: [Right flank pain and chest pain] History of Present Illness: The patient is a 64 F [presents to the emergency department with complaint of chest pain that started after waking up from a nap around 3:30 PM. Patient described a tightness across her chest. Before that about an hour and a half prior to her chest pain she had developed right-sided flank pain that radiates to the front of the abdomen slightly. Patient also states that she vomited several times. Currently her chest pain is resolved but she states that has been intermittent and lasting several minutes at a time. She denies recent travel or surgery. She rates the pain in her flank as an 8 out of 10. Patient has history of coronary artery disease, hypertension, pancreatitis, history of ischemic cardiomyopathy and history of A. fib. Patient has cardiac stent.] Physical Examination: [HEENT-PERRLA, EOMI. Cranial nerves II through XII grossly intact. TMs clear. Mucous membranes moist. No adenopathy. Cardiovascular-regular rate and rhythm without murmur or ectopy Lungs-clear to auscultation, chest wall stable without crepitus or subcu emphysema Abdomen-normoactive bowel sounds, soft, with some mild tenderness to the right lower quadrant. No rebound or rigidity, no peritoneal signs. Patient does have CVA tenderness on the right. Extremities-intact ?4, normal range of motion, normal pulses, atraumatic] Test Results: [EKG obtained arrival shows sinus rhythm with a ventricular rate of 67 bpm with old anterior infarct noted. CBC with differential showing a 6.7, hemoglobin 9.8, hematocrit 31, placed 281. Chemistries unremarkable. Troponin less than 0.015. D-dimer was 0.42. Chest x-ray 1 view obtained interpreted by myself as no acute disease process and radiology in agreement. CT scan of the abdomen pelvis without contrast showed no evidence of urolithiasis or anything acute otherwise.] Urinalysis ordered and pending. Emergency Department Course and Treatment: [IV line established on arrival. Patient already on Plavix and had taken it therefore no aspirin was given as she has allergy to some NSAIDs. Patient was given 4 mg of morphine and 4 mg of Zo melodie IV.] Treatment Plan: [Admit for further work-up and evaluation of her chest pain.] Disposition: [Admit] Impression: [Chest pain-rule out acute coronary syndrome Back pain] This note was generated with [employer] dictation software. It may contain incorrect words, spelling, and punctuation that were not noted in review of the chart prior to signing ED Disposition - Plan for ED Patient: Referrals: Tom Sherman MD [Primary Care Provider] -
--- NOTE | 2020-07-20 20:14 | PCM.HP.STD ---
Problem List (1) Chest pain Status: Acute Qualifiers: Chest pain type: unspecified Qualified Code(s): R07.9 - Chest pain, unspecified (2) Flank pain Status: Acute (3) Irritable bowel syndrome with diarrhea Status: Chronic (4) Hyperlipemia Status: Chronic Qualifiers: Hyperlipidemia type: pure hypercholesterolemia Qualified Code(s): E78.00 - Pure hypercholesterolemia, unspecified; E78.0 - Pure hypercholesterolemia (5) Major depression Status: Chronic Qualifiers: Major depression recurrence: unspecified whether recurrent Active/Remission status: remission status unspecified Qualified Code(s): F32.9 - Major depressive disorder, single episode, unspecified (6) Atherosclerotic heart disease of [place] coronary artery without angina pectoris Status: Chronic Qualifiers: [place] vs. transplanted heart: [place] heart Qualified Code(s): I25.10 - Atherosclerotic heart disease of [place] coronary artery without angina pectoris (7) History of coronary artery stent placement Status: Chronic Comment: PCI-aspiration [id number] LAD 3.0 mm x 18 mm Resolute Stent and POBA-Mid D2 04/08/16 (8) Ischemic cardiomyopathy Status: Chronic (9) Chronic systolic (congestive) heart failure Status: Chronic (10) Essential (primary) hypertension Status: Chronic (11) Paroxysmal atrial fibrillation Status: Chronic (12) Nicotine abuse Status: Chronic History of Present Illness Date of Admission: 07/20/20 Chief Complaint: Chest pain The patient is a 64 y/o F w/ PMHx: Chronic normocytic anemia, Obesity, Chronic COPD, HTN, HLD, Hx mural thrombus w/ Acute PA STEMI/CAD, Takotsubo syndrome/Ischemic Cardiomyopathy, IBS with diarrhea, Diabetes mellitus type II, Anxiety and Depression, Multiple Sclerosis, BRYAN, PAF, RLS, Chronic back pain/DDD who presents to the [facility] ED on 07/20/20 with history of onset at ~ 2 pm onset R sided flank pain described as sharp and severe with near sudden onset midday rated 8 out of 10 in severity prompting her to return to take a nap to see if it would improve however upon awakening she had onset of diffuse chest discomfort across her chest left to right described as a tightness like a belt around her thorax rated at its worst a 8 out of 10 in severity with associated nausea and emesis but no dyspnea or diaphoresis prompting eventual ED presentation for evaluation. Per report patient with EMS administered 4 baby aspirin and 1 nitroglycerin sublingual tablet prior to ED arrival with improvement however it was recurrent while in the ED. Patient upon evaluation per hospitalist physician rated her flank discomfort 6.5 out of 10 and her chest discomfort improved to 5 out of 10. She had no further nausea and was eating without issue. Work-up in the ED included T 98.1, heart 69, BP 117/60, respiratory rate 18, 97% on room air, CBC with WBC 6.7, hemoglobin 9.8, platelet 281 without marked shift, D-dimer 0.42, BMP with glucose 140 otherwise not marked appearing, BUN/creatinine 21/0.81, troponin less than 0.015, chest x-ray with no acute cardiopulmonary findings, CT abdomen and pelvis with no acute intra-abdominal findings with degenerative changes of the lumbar spine and atherosclerotic changes of the abdominal aorta without any aneurysm evident, EKG with sinus rhythm with evidence prior anterior infarct with no acute evidence of ischemia. In the ED patient ministered Zofran 4 mg IV x1, morphine 4 mg IV x1, normal saline. UA pending per ED. Past Medical History Past Medical History (Chronic Problems): Chronic Problems (Last Reviewed 05/11/20 @ 13:11 by Anahi Young) Irritable bowel syndrome with diarrhea (Chronic) Hyperlipemia (Chronic) Pancreatitis (Chronic) Major depression (Chronic) Atherosclerotic heart disease of [place] coronary artery without angina pectoris (Chronic) History of ST elevation myocardial infarction (STEMI) (Chronic) Old anterior wall myocardial infarction (Chronic 04/08/16) History of coronary artery stent placement (Chronic 04/08/16) PCI-aspiration [id number]-[id number] LAD 3.0 mm x 18 mm Resolute Stent and POBA-Mid D2 04/08/16 Ischemic cardiomyopathy (Chronic) Chronic systolic (congestive) heart failure (Chronic) Essential (primary) hypertension (Chronic) Typical atrial flutter (Chronic) Paroxysmal atrial fibrillation (Chronic) Nicotine abuse (Chronic) Medical History: Medical History (Last Reviewed 05/11/20 @ 13:11 by Anahi Young) Major depression (Chronic) F32.9 Atherosclerotic heart disease of [place] coronary artery without angina pectoris (Chronic) I25.[address] elevation myocardial infarction (STEMI) (Chronic) I25.2 Ischemic cardiomyopathy (Chronic) I25.5 Chronic systolic (congestive) heart failure (Chronic) I50.22 Essential (primary) hypertension (Chronic) I10 Paroxysmal atrial fibrillation (Chronic) I48.0 Nicotine abuse (Chronic) Z72.0 Anxiety F41.9 COPD (chronic obstructive pulmonary disease) J44.9 Cervical spinal stenosis M48.02 Diabetes mellitus type 2 in nonobese E11.9 IBS (irritable bowel syndrome) K58.9 Left ventricular hypertrophy I51.7 Multiple sclerosis G35 BRYAN (obstructive sleep apnea) G47.33 RLS (restless legs syndrome) G25.81 Suicidal ideation R45.851 Apical mural thrombus with acute PA I21.29 Takotsubo syndrome I51.81 Irritable bowel syndrome with diarrhea (Inactive) K58.0 Vitamin B12 deficiency (Inactive) E53.8 Allergies indomethacin [From Indocin] Allergy (Verified 07/20/20 17:52) Hives indomethacin sodium [From Indocin] Allergy (Verified 07/20/20 17:52) Hives iodine Allergy (Verified 07/20/20 17:52) Hives propoxyphene napsylate [From Darvocet-N] Allergy (Verified 07/20/20 17:52) Out of control aripiprazole [From Abilify] Adverse Reaction (Verified 07/20/20 17:52) Other drool uncontrollably aspirin Adverse Reaction (Verified 07/20/20 17:52) Upset Stomach when taken in high doses clindamycin Adverse Reaction (Verified 07/20/20 17:52) Nausea metformin Adverse Reaction (Verified 07/20/20 17:52) Other IT CAUSES MY KIDNEYS TO DO WEIRD THINGS sumatriptan [From Imitrex] Adverse Reaction (Verified 07/20/20 17:52) Vomiting Home Medications: Ambulatory Orders Medication Instructions Recorded Aspirin E.C. [Ecotrin] 81 mg PO DAILY@0800 10/21/16 Glimepiride [Amaryl] 4 mg PO BID 10/21/16 Potassium Chloride Oral Tablet 20 meq PO DAILY 10/06/17 [K-Dur] Albuterol Inhaler [Ventolin Hfa] 2 puff INHALATION Q6H PRN PRN 10/23/17 lisinopril 2.5 mg tablet 2.5 mg PO DAILY #30 tab 08/16/19 isosorbide mononitrate 30 mg 30 mg PO DAILY #30 tab 08/17/19 tablet,extended release 24 hr ropinirole 0.5 mg tablet 2 mg PO QHS tab 08/21/19 nitroglycerin 0.4 mg sublingual 0.4 mg SUBLINGUAL ONCE #25 tab 08/23/19 tablet Estrogen,Con/M-Progest Acet 1 tab PO DAILY 09/20/19 [Prempro 0.625-2.5 MG Tablet] Teriflunomide [Aubagio] 14 mg PO DAILY 09/20/19 Carvedilol [Coreg (Beta Marielle)] 6.25 mg PO BID #60 tab 09/21/19 Modafinil [Provigil] 200 mg PO DAILY 12/12/19 Pioglitazone HCl 30 mg PO DAILY 12/25/19 Ropinirole HCl 1 mg PO LUNCH 12/25/19 Hydroxyzine HCl 50 mg PO 4X/DAY 12/26/19 Pantoprazole Sodium [Protonix] 40 mg PO DAILY #30 tab 12/27/19 Handicap Placard See Rx Instructions .ROUTE 03/15/20 .MEDSUPPLY #1 ea dicyclomine 20 mg tablet 20 mg PO BID PRN #180 tab 03/15/20 rosuvastatin 20 mg tablet 20 mg PO QHS #30 tab 04/16/20 duloxetine 30 mg capsule,delayed 30 mg PO BID #60 cap 05/11/20 release mirabegron 25 mg tablet,extended 25 mg PO Q24H #60 tab 05/11/20 release 24 hr clopidogrel 75 mg tablet 75 mg PO DAILY #90 tab 05/14/20 Ondansetron [Zofran Odt] 4 mg PO Q8H PRN PRN #10 tab 06/21/20 trazodone 50 mg tablet 50 mg PO QHS PRN #30 tab 06/26/20 Ondansetron [Zofran Odt] 4 mg PO Q8H PRN PRN #10 tab 07/05/20 Surgical History: Surgical History (Last Reviewed 05/11/20 @ 13:11 by Anahi Young) History of coronary artery stent placement (Chronic) Onset Date: 04/08/16 Z95.5 PCI-aspiration [id number]-IWT-[id number] LAD 3.0 mm x 18 mm Resolute Stent and POBA-Mid D2 04/08/16 History of loop recorder Onset Date: 06/2014 Z98.890 History of amputation of left great toe Z89.412 staph infection History of back surgery Z98.890 History of cervical discectomy Z98.890 History of left knee surgery Z98.890 torn meniscus repair x 2 History of tonsillectomy and adenoidectomy Z98.890 Surgical History: adenoidectomy, angioplasty - Cardiac stent, tonsillectomy, - - L foot great toe ampuation, Back surgery x 3, L carpal tunnel surgery x 2, R carpal tunnel surgery x 1, R thumb reconstructive surgery. cervical spinal surgery february 27 at [facility]. Psychiatric History: Anxiety, Depression, - - Mild cognitive impairment [employer] History: - - Menopausal syndrome. Lives: With Family - Patient notes that her son currently lives with her. Smoking Status: Current every day smoker Tobacco Use: Cigarettes - Patient smokes 1/2 pack/day cigarette/cigar tobacco use., Cigars Alcohol: None Drugs: None - *Family History Maternal Family History: Family History (Last Reviewed 05/11/20 @ 13:11 by Anahi Young) Father Cancer Mother Cancer History Items: Cancer - mother pancreatic ca Paternal Family History: Family History (Last Reviewed 05/11/20 @ 13:11 by Anahi Young) Father Cancer Mother Cancer History Items: Cancer - father lung ca., - - Lung cancer Review of Systems Constitutional: Reports: Malaise, Weakness, Fatigue. Denies: Chills, Fever, Weight Change HEENT: Denies: Head Aches, Sinus Congestion, Sinus Drainage Cardiovascular: Reports: Chest Pain, Chest Tightness, Light Headedness. Denies: Orthopnea, Palpitations, Syncope Respiratory: Denies: Cough, Shortness of Breath, Shortness of breath at rest, Shortness of breath upon exertion, Sputum production Gastrointestinal: Reports: Nausea, Vomiting, - - R flank pain. Denies: Abdominal Pain Genitourinary: Denies: Dysuria Musculoskeletal: Reports: Back Pain, Joint Pain. Denies: Joint Tenderness Skin: Denies: Rash, Wounds Neurological: Denies: Numbness, Tingling, Focal weakness Psychiatric: Reports: Anxiety, Depression. Denies: Homicidal Ideations, Suicidal Ideations Hematologic/ Lymphatic: Reports: Anemia. Denies: Easy Bruising, Easy Bleeding VTE Information - Inpt Only VTE Present on Admission: No VTE Mechan Device Prophylaxis: SCD's VTE Pharm Prophylaxis ordered?: Yes Subjective: Patient seated upright in ED bed, eating food, no obvious distress however upon evaluation does still report chest discomfort and flank pain, chest pain rated 5 out of 10 and flank pain 6.5 out of 10. Objective: Physical Examination: General: awake, alert, oriented x 3 and cooperative, seated upright in the ED bed, no obvious distress, eating, does still report chest discomfort and flank pain however. Skin: normal color, turgor, no icterus, cyanosis except occasional scab and picked region appearance. HEENT: AT/NC, EOMI, PERRLA, mildly dry MM, no carotid bruits or JVD noted. Lungs: Diminished breath sounds, greater bases, moderate effort, no rales, ronchi or wheezing. Heart: Regular rate and rhythm; no gallop, rub audible. Abdomen: soft, NTTP, ND, normal BS, no HSM, significant right flank discomfort with palpation. Extremities: no cyanosis, clubbing, or edema. Neurological: patient awake, alert, oriented as noted; cognitive function intact; pupils equally reactive to light and accomodation; cranial nerves II-XII grossly normal, moving all 4 extremities, no focal deficits, strength mildly to moderately global decrease given acute complaints. Psychiatric: affect appears normal, no acute evidence of depressive or anxiety feelings. - Physical Exam Vitals/I&O's: Vital Signs Temp Pulse Resp BP Pulse Ox 98.1 F 71 18 119/59 L 95 07/20/20 17:55 07/20/20 20:00 07/20/20 20:00 07/20/20 20:00 07/20/20 20:00 Oxygen Delivery Method Room Air Weight: 185 lb 10.067 oz Body Mass Index (BMI) 30.9 Finger Stick Blood Glucose 151 Laboratory Results 07/20/20 17:35: WBC 6.7, RBC 3.47 L, Hgb 9.8 L, Hct 31.6 L, MCV 91.1, MCH 28.2, MCHC 31.0 L, RDW Std Deviation 52.4 H, RDW Coeff of [place] 16.0 H, Plt Count 281, MPV 10.5, Immature Gran % (Auto) 0.300, Neut % (Auto) 52.2, Lymph % (Auto) 29.4, [place] % (Auto) 11.6 H, Eos % (Auto) 5.3 H, Baso % (Auto) 1.2 H, Absolute Neuts (auto) 3.5, Absolute Lymphs (auto) 1.98, Nucleated RBC % 0 07/20/20 17:35: Sodium 137, Potassium 4.5, Chloride 106, Carbon Dioxide 23.0, Anion Gap 8, BUN 21 H, Creatinine 0.81, Estim Creat Clear Calc 62.31, Est GFR (MDRD) Af Amer 91, Est GFR (MDRD) Non-Af 75, BUN/Creatinine Ratio 25.9 H, Glucose 140 H, Calcium 9.2, Troponin I < 0.015 07/20/20 17:35: D-Dimer Quant (PE/DVT) 0.42 Current Medications Sodium Chloride () 1,000 mls @ 150 mls/hr IV .Q6H40M RANDI Last Admin: 07/20/20 18:55 Dose: 150 mls/hr Documented by: Assessment/Plan All Active Problems (Last Reviewed 05/11/20 @ 13:11 by Anahi Young) Chest pain (Acute) Flank pain (Acute) The patient is a 64 y/o F w/ PMHx: Chronic normocytic anemia, Obesity, Chronic COPD, HTN, HLD, Hx mural thrombus w/ Acute PA STEMI/CAD, Takotsubo syndrome/Ischemic Cardiomyopathy, IBS with diarrhea, Diabetes mellitus type II, Anxiety and Depression, Multiple Sclerosis, BRYAN, PAF, RLS, Chronic back pain/DDD who presents to the [facility] ED on 07/20/20 with history of onset at ~ 2 pm onset R sided flank pain described as sharp and severe with near sudden onset midday rated 8 out of 10 in severity prompting her to return to take a nap to see if it would improve however upon awakening she had onset of diffuse chest discomfort across her chest left to right described as a tightness like a belt around her thorax. 1. Chest Pain: EKG in ED sinus rhythm with evidence prior anterior infarct with no acute evidence of ischemia, CXR w/ no acute cardiopulmonary findings, initial trop normal x1. Will admit to PCU, place on a monitored bed to assure no acute myocardial infarction with serial cardiac enzymes and EKGs. Of note 09/01/2019 cardiac stress echo noted to be normal, adequate dobutamine echocardiogram negative for ischemia by EKG and echocardiographic criteria baseline anteroseptal hypokinesis which is unchanged with final LVEF 65%. If repeat cardiac enzymes and EKGs remain unremarkable given timeline of last stress test would obtain repeat. Magnesium level requested. FLP in AM. ASA, NG, morphine. 2. Right flank discomfort, unclear etiology, possible UTI: CT abdomen pelvis with no obvious evidence of renal calculi, awaiting urinalysis, CBC with no marked WC elevation or left shift and afebrile but again notable right flank discomfort with tenderness palpation upon evaluation, add ABX if appropriate. 3. CAD, history of mural thrombus with history of STEMI: Status post prior STEMI, continue aspirin, Plavix, Coreg, lisinopril, statin therapy, no longer on any anticoagulant therapy per current list. 4. Hypertension: Continue home regimen including Coreg, isosorbide, lisinopril with hold parameters as needed, PRN hydralazine. 5. Hyperlipidemia: Continue home statin regimen. AM FLP. 6. Takotsubo syndrome/ischemic cardiomyopathy/Chronic Systolic CHF: We will continue aspirin, Plavix, Coreg, isosorbide, lisinopril, statin home regimen. 7. Diabetes mellitus type II: Hold oral home regimen, ADA diet until n.p.o. status, accu checks w/ ISS. 8. Chronic normocytic anemia: Admission hemoglobin 9.8, baseline 9-11 most recently, stable, continue to trend. 9. Anxiety and depression: We will continue patient home duloxetine as well as trazodone nightly regimen. 10. Obesity: Weight loss and lifestyle changes encouraged. 11. Restless leg syndrome: We will continue patient home Requip regimen. 12. Chronic COPD: Patient not on chronic oxygen nor on chronic inhalers, will have as needed albuterol, encourage head of bed and I-S. 13. IBS with chronic diarrhea: We will continue patient home as needed Bentyl regimen. 14. GERD: We will continue patient home PPI. 15. BRYAN: We will continue home BiPAP nightly. 16. Multiple Sclerosis: Will continue patient home teriflunomide regimen, fall precautions, 17. DVT prophylaxis: SCDs, Lovenox. 18. CODE status: Patient ARSH is her son Lazaro Mclean and living will is currently in place. Discussed CODE status at length including difference between FULL code, DNR-CCA and DNR-CC status. Following discussions about the differences in these status, requested Full Code status. Advanced Care Planning Face to Face Time: 16 minutes. OBSV E&M: 28834 Initial observation care L3 Procedures: 00588 Advncd Care Plan 30 Min
[2020-07-20 20:19] LABS: Bacteria 0 SEEN /hpf (None Seen); Mucous, Urine 0 SEEN /hpf (<or=2+); Red Blood Cells-Urine 0 SEEN /hpf (0-5)
[2020-07-20 20:20] LABS: Color, Urine Yellow (Yellow); Glucose, Dipstick Normal (Normal); Ketone-Dipstick Negative (Negative); Leukocyte Esterase-Dipstick 25 /ul (Negative); Nitrite-Dipstick Negative (Negative); Occult Blood-Urine Negative /ul (Negative); Protein-Dipstick Negative (Negative); Urine Bilirubin Dipstick Negative (Negative); Urine Clarity Clear (Clear); Urine Urobilinogen Normal (Normal)
[2020-07-20 20:26] LABS: Squamous Epithelial Cells - UA 0-5 SEEN /hpf (5-10); White Blood Cells 0 SEEN /hpf (0-5)
--- NOTE | 2020-07-20 21:19 | EKG12_ITS ---
Test Reason : ROUTINE Blood Pressure : / mmHG Vent. Rate : 068 BPM Atrial Rate : 068 BPM P-R Int : 148 ms QRS Dur : 102 ms QT Int : 434 ms P-R-T Axes : 056 -34 087 degrees QTc Int : 461 ms Normal sinus rhythm Left axis deviation Low voltage QRS Inferior infarct , age undetermined Abnormal ECG When compared with ECG of 20-JUL-2020 21:37, MANUAL COMPARISON REQUIRED, DATA IS UNCONFIRMED Confirmed by ALLAN WITT, DORYS ([id number]), editor dictionary YUNG MUNGUIA ([id number]) on 07/24/2020 10:51:02 AM Referred By: Confirmed By:DORYS LEMUS MD
[2020-07-20 22:07] LABS: Magnesium 1.7 mg/dL (1.6-2.6)
[2020-07-20] MEDS: Acetaminophen 325 MG Tablet 650 MG PO (22:36)
[2020-07-20] MEDS: oxyCODONE 5 MG Tablet PO (22:36)
[2020-07-20] MEDS: traZODone 50 MG Tablet PO (22:36)
[2020-07-20] MEDS: 0.9% Saline Lock 10 ML Syringe IV (22:37)
[2020-07-20 22:40] LABS: Bedside Glucose 182 mg/dL (70-110)
[2020-07-20] MEDS: Insulin Lispro 100 UNIT/ML INSULN.PEN SC (22:48)
[2020-07-20] MEDS: DULoxetine Hcl 30 MG Capsule PO (22:50)
[2020-07-20] MEDS: hydrOXYzine PAM 25 MG Capsule 50 MG PO (22:50)
[2020-07-20] MEDS: Carvedilol 6.25 MG Tablet PO (22:50)
[2020-07-21 03:00] VITALS: PULSE 71
[2020-07-21 03:30] VITALS: BP 113/56; PULSE 68; RESP 18; TEMP 36.2; O2SAT 96
[2020-07-21 03:32] LABS: Absolute Lymphocyte Count 1.64 X10^3/uL (0.83-4.51); Absolute Neutrophil Count 3.2 X10^3/uL (2.0-7.7); Basophil# 0.09 X10^3/uL; Basophil% 1.5 % (0-1); Eosinophil# 0.35 X10^3/uL; Eosinophils% 5.9 % (0-5); Hematocrit 27.3 % (37-47); Hemoglobin 8.6 g/dL (12.0-15.0); Lymphocyte # 1.64 X10^3/ul (4.0); Lymphocyte % 27.7 % (19-41); Mean Corp Hgb Conc 31.5 g/dL (32-36); Mean Corpuscular Hgb 28.2 pg (27.0-32.0); Mean Corpuscular Volume 89.5 fL (81-99); Mean Platelet Vol. 9.1 fl (6.2-12.0); Monocyte# 0.64 X10^3/uL; Monocyte% 10.8 % (0-10); NRBC Flagged by Analyzer 0 % (0-5); Neutrophil # 3.19 X10^3/uL (2.7-7.7); Neutrophil % 53.9 % (47-70); Platelet Count 209 K/mm3 (150-450); RBC Distribution Width CV 15.8 % (11.6-14.6); RBC Distribution Width SD 51.3 fl (35.1-43.9); Red Blood Count 3.05 M/mm3 (4.2-5.4); White Blood Count 5.9 K/mm3 (4.4-11.0)
[2020-07-21 04:23] LABS: AST(SGOT) 12 U/L (15-37); Alanine Aminotransfer ALT/SGPT 16 U/L (13-56); Albumin, Serum 2.6 g/dL (3.2-5.0); Alkaline Phosphatase 92 U/L (45-117); Anion Gap 6 (5-15); BUN 22 mg/dL (7-18); BUN/Creat Ratio 29.7 RATIO (10-20); Calcium,Total 8.7 mg/dL (8.5-10.1); Chloride 109 mmol/L (98-107); Cholesterol 92 mg/dL (200); Creatinine, Serum 0.74 mg/dL (0.55-1.02); EST Glomerular Filtration Rate 83 mL/min (>60); Est Glom Filt Rate - Afr Amer 101 mL/min (>60); Globulin 2.7 g/dL (2.2-4.2); Glucose 184 mg/dL (74-106); High Density Lipoprotein 54 mg/dL; Potassium 3.7 mmol/L (3.5-5.1); Protein, Total 5.3 g/dL (6.4-8.2); Sodium Level 137 mmol/L (136-145); Triglycerides 124 mg/dL; Very Low Density Lipoprotein 25 mg/dL (5-40)
[2020-07-21 05:51] VITALS: BP 151/65; PULSE 87; RESP 20; TEMP 36.6; O2SAT 97
[2020-07-21] MEDS: Aspirin E.C. 81 MG Tablet PO (05:53)
[2020-07-21] MEDS: Clopidogrel Bisulfate 75 MG Tablet PO (05:53)
[2020-07-21] MEDS: Lisinopril 2.5 MG Tablet PO (05:53)
[2020-07-21] MEDS: Acetaminophen 325 MG Tablet 650 MG PO ×2 (05:53→11:57)
[2020-07-21] MEDS: 0.9% Saline Lock 10 ML Syringe IV (05:54)
[2020-07-21] MEDS: oxyCODONE 5 MG Tablet PO (05:55)
--- NOTE | 2020-07-21 05:55 | EKG12_ITS ---
Test Reason : CHEST PAIN Blood Pressure : / mmHG Vent. Rate : 070 BPM Atrial Rate : 070 BPM P-R Int : 112 ms QRS Dur : 088 ms QT Int : 420 ms P-R-T Axes : 034 -50 084 degrees QTc Int : 453 ms Normal sinus rhythm Left axis deviation Inferior infarct , age undetermined Anterior infarct , age undetermined Abnormal ECG Confirmed by ALLAN WITT, DORYS ([id number]), graphics editor YUNG MUNGUIA ([id number]) on 07/24/2020 10:57:05 AM Referred By: Confirmed By:DORYS LEMUS MD
[2020-07-21 06:41] LABS: Bedside Glucose 123 mg/dL (70-110)
[2020-07-21 07:02] VITALS: PULSE 71
[2020-07-21 08:18] VITALS: O2SAT 92
[2020-07-21] MEDS: Enoxaparin 40 MG/0.4 ML Syringe SC (10:39)
[2020-07-21] MEDS: Modafinil 200 MG Tablet PO (10:39)
[2020-07-21] MEDS: DULoxetine Hcl 30 MG Capsule PO (10:40)
[2020-07-21] MEDS: Carvedilol 6.25 MG Tablet PO (10:40)
[2020-07-21] MEDS: Isosorbide Mononitrate 30 MG Tablet PO (10:40)
[2020-07-21] MEDS: Potassium Chloride Oral Tablet 20 MEQ PO (10:41)
[2020-07-21] MEDS: Pantoprazole Sodium 40 MG Tablet PO (10:42)
[2020-07-21] MEDS: Mirabegron 25 MG TAB.ER.24H PO (10:42)
[2020-07-21] MEDS: hydrOXYzine PAM 25 MG Capsule 50 MG PO (10:43)
--- NOTE | 2020-07-21 10:44 | DCINST_ITS ---
- Discharge Diagnoses Current Active Problems: Current Active and Chronic Problems (Last Reviewed 05/11/20 @ 13:11 by Anahi Young) Chest pain (Acute) Flank pain (Acute) Irritable bowel syndrome with diarrhea (Chronic) Hyperlipemia (Chronic) Major depression (Chronic) Atherosclerotic heart disease of [place] coronary artery without angina pectoris (Chronic) History of coronary artery stent placement (Chronic 04/08/16) PCI-aspiration [id number]-FHW-bqg LAD 3.0 mm x 18 mm Resolute Stent and POBA-Mid D2 04/08/16 Ischemic cardiomyopathy (Chronic) Chronic systolic (congestive) heart failure (Chronic) Essential (primary) hypertension (Chronic) Paroxysmal atrial fibrillation (Chronic) Nicotine abuse (Chronic) You will use the following diet at home:: Calorie/Carbohydrate Controlled (specify 1200, 1400, etc) - 1800 barry Your food should be the consistency of: Regular Your liquids should be the consistency of: Regular/Thin Discharge Activity: Return to Normal Activity Weight Bearing Status: Full weight bearing Allergies/Adverse Reactions: Allergies indomethacin [From Indocin] Allergy (Verified 07/20/20 17:52) Hives indomethacin sodium [From Indocin] Allergy (Verified 07/20/20 17:52) Hives iodine Allergy (Verified 07/20/20 17:52) Hives propoxyphene napsylate [From Darvocet-N] Allergy (Verified 07/20/20 17:52) Out of control aripiprazole [From Abilify] Adverse Reaction (Verified 07/20/20 17:52) Other drool uncontrollably aspirin Adverse Reaction (Verified 07/20/20 17:52) Upset Stomach when taken in high doses clindamycin Adverse Reaction (Verified 07/20/20 17:52) Nausea metformin Adverse Reaction (Verified 07/20/20 17:52) Other IT CAUSES MY KIDNEYS TO DO WEIRD THINGS sumatriptan [From Imitrex] Adverse Reaction (Verified 07/20/20 17:52) Vomiting Medications to take at Discharge Aspirin E.C. [Ecotrin] 81 mg PO DAILY@0800 10/21/16 Glimepiride [Amaryl] 4 mg PO BID 10/21/16 Potassium Chloride Oral Tablet [K-Dur] 20 meq PO DAILY 10/06/17 Albuterol Inhaler [Ventolin Hfa] 2 puff INHALATION Q6H PRN PRN 10/23/17 lisinopril 2.5 mg tablet 2.5 mg PO DAILY #30 tab 08/16/19 isosorbide mononitrate 30 mg tablet,extended release 24 hr 30 mg PO DAILY #30 tab 08/17/19 ropinirole 0.5 mg tablet 10 mg PO QHS tab 08/21/19 nitroglycerin 0.4 mg sublingual tablet 0.4 mg SUBLINGUAL ONCE #25 tab 08/23/19 Estrogen,Con/M-Progest Acet [Prempro 0.625-2.5 MG Tablet] 1 tab PO DAILY 09/20/19 Teriflunomide [Aubagio] 14 mg PO DAILY 09/20/19 Carvedilol [Coreg (Beta Marielle)] 6.25 mg PO BID #60 tab 09/21/19 Modafinil [Provigil] 200 mg PO DAILY 12/12/19 Pioglitazone HCl 30 mg PO DAILY 12/25/19 Ropinirole HCl 5 mg PO LUNCH 12/25/19 Hydroxyzine HCl 50 mg PO 4X/DAY 12/26/19 Pantoprazole Sodium [Protonix] 40 mg PO DAILY #30 tab 12/27/19 Handicap Placard See Rx Instructions .ROUTE .MEDSUPPLY #1 ea 03/15/20 dicyclomine 20 mg tablet 20 mg PO BID PRN #180 tab 03/15/20 rosuvastatin 20 mg tablet 20 mg PO QHS #30 tab 04/16/20 duloxetine 30 mg capsule,delayed release 30 mg PO BID #60 cap 05/11/20 mirabegron 25 mg tablet,extended release 24 hr 25 mg PO Q24H #60 tab 05/11/20 clopidogrel 75 mg tablet 75 mg PO DAILY #90 tab 05/14/20 Ondansetron [Zofran Odt] 4 mg PO Q8H PRN PRN #10 tab 06/21/20 trazodone 50 mg tablet 50 mg PO QHS PRN #30 tab 06/26/20 Ondansetron [Zofran Odt] 4 mg PO Q8H PRN PRN #10 tab 07/05/20 Primary Care Physician: Tom Sherman MD [Primary Care Provider] - Please follow up with your Primary Care Physician in: in 1-2 weeks Test Results: Test results from this visit will be discussed in further detail at your follow- up appointment, if applicable. Please Follow Up With: Elias Butler MD When: as instructed
[2020-07-21 12:07] VITALS: BP 99/54; PULSE 71; RESP 16; TEMP 36.7; O2SAT 97
[2020-07-21] MEDS: Pramipexole Di-HCl 0.5 MG Tablet PO (12:10)
[2020-07-21] MEDS: Insulin Lispro 100 UNIT/ML INSULN.PEN SC (12:10)
[2020-07-21 12:20] LABS: Bedside Glucose 190 mg/dL (70-110)
--- NOTE | 2020-07-21 13:42 | DS.PCM_ITS ---
Discharge Date and Diagnosis - Problem List Patient Problems: Active and Suspected Problems (Last Reviewed 05/11/20 @ 13:11 by Anahi Young) Chest pain (Acute) Flank pain (Acute) Date of Admission: 07/20/20 Date of Discharge: 07/21/20 - Primary Discharge Diagnosis Acute Problems: Active Problems (Last Reviewed 05/11/20 @ 13:11 by Anahi Young) #1 musculoskeletal chest pain #2 coronary artery disease #3 multiple sclerosis - Secondary Discharge Diagnosis Chronic Problems: Chronic Problems (Last Reviewed 05/11/20 @ 13:11 by Anahi Young) Irritable bowel syndrome with diarrhea (Chronic) Hyperlipemia (Chronic) Pancreatitis (Chronic) Major depression (Chronic) Atherosclerotic heart disease of [place] coronary artery without angina pectoris (Chronic) History of ST elevation myocardial infarction (STEMI) (Chronic) Old anterior wall myocardial infarction (Chronic 04/08/16) History of coronary artery stent placement (Chronic 04/08/16) PCI-aspiration [id number] LAD 3.0 mm x 18 mm Resolute Stent and POBA-Mid D2 04/08/16 Ischemic cardiomyopathy (Chronic) Chronic systolic (congestive) heart failure (Chronic) Essential (primary) hypertension (Chronic) Typical atrial flutter (Chronic) Paroxysmal atrial fibrillation (Chronic) Nicotine abuse (Chronic) Hospital Course and Treatment Operations: None Procedures: None Summary of Care Provided: The patient is a 64 year old F who was seen in the emergency room at [facility] with a chief complaint of chest pain that she described as a tightness across her chest. Patient stated that she also developed some right- sided flank pain that radiated into the front of her abdomen. Work-up in the emergency room included an EKG without evidence of acute ischemic changes, CBC was remarkable for hemoglobin of 9.8, chemistries were unremarkable. Troponin was normal. Chest x-ray showed no acute disease. CT scan of the abdomen pelvis without contrast showed no evidence of urolithiasis or acute pathology. Urinalysis was unremarkable. Patient was placed in observation status on PCU, cardiac enzymes were cycled and these remain normal. It was felt that the patient's complaints were not due to coronary artery disease but probably musculoskeletal in nature. Stress test was not performed. Her last stress test was performed in 2019 and was negative for reversible ischemia. On 07/21/2020, patient was seen and examined: On examination she appeared in good health and spirits. Vital signs as documented. Skin warm and dry and without overt rashes. Neck without JVD, neck was supple, trachea midline, thyroid was normal. Lungs clear bilaterally, normal air movement was noted. Heart exam notable for regular rhythm, normal sounds and absence of murmurs, rubs or gallops. Abdomen unremarkable and without evidence of organomegaly, masses, or abdominal aortic enlargement. Bowel sounds are present, abdomen is not distended. Extremities nonedematous, no cyanosis was noted, no clubbing was noted. Neuro: Cranial nerves II through XII are grossly intact, no focal motor deficits were noted, sensation to light touch and pinprick intact, motor exam 5/5 throughout. Psych: Patient is alert and oriented x3, she does not appear anxious or depressed, she does not appear agitated. Patient was discharged home in stable condition on 07/21/2020. Patient Problems: Active and Suspected Problems (Last Reviewed 05/11/20 @ 13:11 by Anahi Young) Chest pain (Acute) Flank pain (Acute) - Physical Exam Vitals/I&O's: Vital Signs Temp Pulse Resp BP Pulse Ox 98.0 F 71 16 99/54 L 97 07/21/20 12:07 07/21/20 12:07 07/21/20 12:07 07/21/20 12:07 07/21/20 12:07 Oxygen Delivery Method Room Air Weight: 81.1 kg Body Mass Index (BMI) 29.7 Finger Stick Blood Glucose 151 Intake and Output for Last 24 Hours 07/19/20 07/20/20 07/21/20 23:59 23:59 23:59 Intake Total 387.5 / 687.5 704 / 704 Balance 387.5 / 687.5 704 / 704 Laboratory Results 07/20/20 17:35: WBC 6.7, RBC 3.47 L, Hgb 9.8 L, Hct 31.6 L, MCV 91.1, MCH 28.2, MCHC 31.0 L, RDW Std Deviation 52.4 H, RDW Coeff of Yeimi 16.0 H, Plt Count 281, MPV 10.5, Immature Gran % (Auto) 0.300, Neut % (Auto) 52.2, Lymph % (Auto) 29.4, [place] % (Auto) 11.6 H, Eos % (Auto) 5.3 H, Baso % (Auto) 1.2 H, Absolute Neuts (auto) 3.5, Absolute Lymphs (auto) 1.98, Nucleated RBC % 0 07/20/20 17:35: Sodium 137, Potassium 4.5, Chloride 106, Carbon Dioxide 23.0, Anion Gap 8, BUN 21 H, Creatinine 0.81, Estim Creat Clear Calc 62.31, Est GFR (MDRD) Af Amer 91, Est GFR (MDRD) Non-Af 75, BUN/Creatinine Ratio 25.9 H, Glucose 140 H, Calcium 9.2, Troponin I < 0.015 07/20/20 17:35: D-Dimer Quant (PE/DVT) 0.42 07/20/20 20:15: Urine Color Yellow, Urine Clarity Clear, Urine pH 6.0, Ur Specific [place] 1.010, Urine Protein Negative, Urine Glucose (UA) Normal, Urine Ketones Negative, Urine Occult Blood Negative, Urine Nitrite Negative, Urine Bilirubin Negative, Urine Urobilinogen Normal, Ur Leukocyte Esterase 25 H, Urine RBC 0 SEEN, Urine WBC 0 SEEN, Ur Squamous Epith Cells 0-5 SEEN, Urine Bacteria 0 SEEN, Urine Mucus 0 SEEN 07/20/20 21:43: Magnesium 1.7, Troponin I < 0.015 07/20/20 22:35: POC Glucose 182 H 07/21/20 00:28: Troponin I < 0.015 07/21/20 03:25: WBC 5.9, RBC 3.05 L, Hgb 8.6 L, Hct 27.3 L, MCV 89.5, MCH 28.2, MCHC 31.5 L, RDW Std Deviation 51.3 H, RDW Coeff of Yeimi 15.8 H, Plt Count 209, M PV 9.1, Immature Gran % (Auto) 0.200, Neut % (Auto) 53.9, Lymph % (Auto) 27.7, [place] % (Auto) 10.8 H, Eos % (Auto) 5.9 H, Baso % (Auto) 1.5 H, Absolute Neuts (auto) 3.2, Absolute Lymphs (auto) 1.64, Nucleated RBC % 0 07/21/20 03:25: Sodium 137, Potassium 3.7, Chloride 109 H, Carbon Dioxide 22.0, Anion Gap 6, BUN 22 H, Creatinine 0.74, Estim Creat Clear Calc 68.20, Est GFR (MDRD) Af Amer 101, Est GFR (MDRD) Non-Af 83, BUN/Creatinine Ratio 29.7 H, Glucose 184 H, Calcium 8.7, Total Bilirubin 0.20, AST 12 L, ALT 16, Alkaline Phosphatase 92, Total Protein 5.3 L, Albumin 2.6 L, Globulin 2.7, Albumin/Globulin Ratio 1.0, Triglycerides 124, Cholesterol 92, LDL Cholesterol 13, VLDL Cholesterol 25, HDL Cholesterol 54 07/21/20 03:25: Troponin I < 0.015 07/21/20 06:24: POC Glucose 123 H 07/21/20 11:55: POC Glucose 190 H Current Medications Acetaminophen (Acetaminophen 325 Mg Tablet) 650 mg PO Q6H PRN PRN PRN Reason: Pain Score 1-10/Temp > 100.7 F Last Admin: 07/21/20 11:57 Dose: 650 mg Documented by: Al Hydroxide/Mg Hydroxide (Mag Hydrox/Al Hydrox/Simeth 30 Ml Udc) 30 ml PO Q6H PRN PRN PRN Reason: Gastric Burning Albuterol Sulfate (Albuterol 2.5 Mg/3 Ml Vial.Neb.) 2.5 mg INHALATION Q2H PRN PRN PRN Reason: Dyspnea, wheezing Aspirin (Aspirin E.C. 81 Mg Tablet) 81 mg PO DAILY@0800 [facility] Last Admin: 07/21/20 05:53 Dose: 81 mg Documented by: Atorvastatin Calcium (Atorvastatin Calcium 40 Mg Tablet) 40 mg PO QHS [facility] Carvedilol (Carvedilol 6.25 Mg Tablet) 6.25 mg PO BID [facility] Last Admin: 07/21/20 10:40 Dose: 6.25 mg Documented by: Clopidogrel Bisulfate (Clopidogrel Bisulfate 75 Mg Tablet) 75 mg PO DAILY [facility] Last Admin: 07/21/20 05:53 Dose: 75 mg Documented by: Dicyclomine HCl (Dicyclomine 10 Mg Capsule) 20 mg PO BID PRN PRN PRN Reason: abdominal discomfort Duloxetine HCl (Duloxetine Hcl 30 Mg Capsule) 30 mg PO BID [facility] Last Admin: 07/21/20 10:40 Dose: 30 mg Documented by: Enoxaparin Sodium (Enoxaparin 40 Mg/0.4 Ml Syringe) 40 mg SC DAILY [facility] Last Admin: 07/21/20 10:39 Dose: 40 mg Documented by: Guaifenesin (Guaifenesin 10 Ml Udc (200mg/10ml)) 20 ml PO Q4H PRN PRN PRN Reason: COUGH Hydralazine HCl (Hydralazine 20 Mg/Ml Vial) 10 mg IV Q4H PRN PRN PRN Reason: SBP > 160 Hydroxyzine Pamoate (Hydroxyzine [place] 25 Mg Capsule) 50 mg PO 4X/DAY [facility] Last Admin: 07/21/20 10:43 Dose: 50 mg Documented by: Insulin Human Lispro (Insulin Lispro 100 Unit/Ml Insuln.Pen) 0 unit SC [facility]; Protocol Last Admin: 07/21/20 12:10 Dose: 1 units Documented by: Isosorbide Mononitrate (Isosorbide Mononitrate 30 Mg Tablet) 30 mg PO DAILY [facility] Last Admin: 07/21/20 10:40 Dose: 30 mg Documented by: Lisinopril (Lisinopril 2.5 Mg Tablet) 2.5 mg PO DAILY [facility] Last Admin: 07/21/20 05:53 Dose: 2.5 mg Documented by: Magnesium Hydroxide (Magnesium Hydroxide 30 Ml Udc) 30 ml PO DAILY PRN PRN PRN Reason: Constipation Mirabegron (Mirabegron 25 Mg Tab.Er.24h) 25 mg PO DAILY [facility] Last Admin: 07/21/20 10:42 Dose: 25 mg Documented by: Modafinil (Modafinil 200 Mg Tablet) 200 mg PO DAILY [facility] Last Admin: 07/21/20 10:39 Dose: 200 mg Documented by: Morphine Sulfate (Morphine 4 Mg/Ml Syringe) 4 mg IV Q3H PRN PRN PRN Reason: Pain Score 6-10 Nitroglycerin (Nitroglycerin (Inpatient Use) 0.4 Mg Tab.Subl) 0.4 mg SL Q5M PRN PRN Reason: CARDIAC/CHEST PAIN Ondansetron HCl (Ondansetron 4 Mg/2 Ml Vial) 4 mg IV Q8H PRN PRN PRN Reason: NAUSEA/VOMITING Last Admin: 07/20/20 22:37 Dose: 4 mg Documented by: Oxycodone HCl (Oxycodone 5 Mg Tablet) 5 mg PO Q4H PRN PRN PRN Reason: Pain Score 4-5 Last Admin: 07/21/20 05:55 Dose: 5 mg Documented by: Pantoprazole Sodium (Pantoprazole Sodium 40 Mg Tablet) 40 mg PO DAILY [facility] Last Admin: 07/21/20 10:42 Dose: 40 mg Documented by: Potassium Chloride (Potassium Chloride Oral Tablet 20 Meq) 20 meq PO DAILY [facility] Last Admin: 07/21/20 10:41 Dose: 20 meq Documented by: Pramipexole Dihydrochloride (Pramipexole Di-Hcl 0.5 Mg Tablet) 0.5 mg PO LUNCH [facility] Last Admin: 07/21/20 12:10 Dose: 0.5 mg Documented by: Pramipexole Dihydrochloride (Pramipexole Di-Hcl 1 Mg Tablet) 1 mg PO QHS [facility] Prochlorperazine Edisylate (Prochlorperazine 10 Mg/2 Ml Vial) 5 mg IV Q4H PRN PRN PRN Reason: Breakthrough Nausea/Vomiting Psyllium Hydrophilic Mucilloid (Psyllium 1 Packet) 1 packet PO DAILY PRN PRN PRN Reason: Constipation Senna/Docusate Sodium (Senna/Docusate Sodium 1 Tablet) 2 tablet PO BID PRN PRN PRN Reason: Constipation Sodium Chloride (0.9% Saline Lock 10 Ml Syringe) 10 - 40 ml IV UD PRN PRN Reason: SALINE FLUSH Last Admin: 07/21/20 05:54 Dose: 20 ml Documented by: Throat Lozenges (Benzocaine/Menthol 1 Lozenge) 1 lozenge MUCOUS MEM Q2H PRN PRN PRN Reason: SORE THROAT Trazodone HCl (Trazodone 50 Mg Tablet) 50 mg PO QHS PRN PRN PRN Reason: insomnia Last Admin: 07/20/20 22:36 Dose: 50 mg Documented by: Discharge Activity: Return to Normal Activity Weight Bearing Status: Full weight bearing Home Medications: Medications to take at Discharge Aspirin E.C. [Ecotrin] 81 mg PO DAILY@0800 10/21/16 Glimepiride [Amaryl] 4 mg PO BID 10/21/16 Potassium Chloride Oral Tablet [K-Dur] 20 meq PO DAILY 10/06/17 Albuterol Inhaler [Ventolin Hfa] 2 puff INHALATION Q6H PRN PRN 10/23/17 lisinopril 2.5 mg tablet 2.5 mg PO DAILY #30 tab 08/16/19 isosorbide mononitrate 30 mg tablet,extended release 24 hr 30 mg PO DAILY #30 tab 08/17/19 ropinirole 0.5 mg tablet 10 mg PO QHS tab 08/21/19 nitroglycerin 0.4 mg sublingual tablet 0.4 mg SUBLINGUAL ONCE #25 tab 08/23/19 Estrogen,Con/M-Progest Acet [Prempro 0.625-2.5 MG Tablet] 1 tab PO DAILY 09/20/19 Teriflunomide [Aubagio] 14 mg PO DAILY 09/20/19 Carvedilol [Coreg (Beta Marielle)] 6.25 mg PO BID #60 tab 09/21/19 Modafinil [Provigil] 200 mg PO DAILY 12/12/19 Pioglitazone HCl 30 mg PO DAILY 12/25/19 Ropinirole HCl 5 mg PO LUNCH 12/25/19 Hydroxyzine HCl 50 mg PO 4X/DAY 12/26/19 Pantoprazole Sodium [Protonix] 40 mg PO DAILY #30 tab 12/27/19 Handicap Placard See Rx Instructions .ROUTE .MEDSUPPLY #1 ea 03/15/20 dicyclomine 20 mg tablet 20 mg PO BID PRN #180 tab 03/15/20 rosuvastatin 20 mg tablet 20 mg PO QHS #30 tab 04/16/20 duloxetine 30 mg capsule,delayed release 30 mg PO BID #60 cap 05/11/20 mirabegron 25 mg tablet,extended release 24 hr 25 mg PO Q24H #60 tab 05/11/20 clopidogrel 75 mg tablet 75 mg PO DAILY #90 tab 05/14/20 Ondansetron [Zofran Odt] 4 mg PO Q8H PRN PRN #10 tab 06/21/20 trazodone 50 mg tablet 50 mg PO QHS PRN #30 tab 06/26/20 Ondansetron [Zofran Odt] 4 mg PO Q8H PRN PRN #10 tab 07/05/20 Primary Care Physician: Tom Sherman MD [Primary Care Provider] - Please follow up with your Primary Care Physician in: in 1-2 weeks Please Follow Up With: Elias Butler MD When: as instructed Please Follow Up With: Tom Sherman MD Disposition: Home Minutes spent on discharge:: 30 Patient Condition:: Stable Medical Necessity - Tobacco Use Smoking Status: Current every day smoker Tobacco Use: Cigarettes, Cigars Meaningful Use Info Meaningful Use Diagnoses (Choose all that apply): None applicable OBSV E&M: 13317 Observation care discharge
--- NOTE | 2020-07-21 14:15 | NURSING ---
all nursing care, medication administration, and documentation completed by SN Stanton, on 07/21/20, done under the supervision of this RN.
== END 2020-07-21 10:46 | disposition home or self-care (01) ==
LOC: ED 20:22 → PCU 21:35
PROVIDERS: Admitting Provider Family Medicine; Emergency Provider Emergency Medicine; PCP Internal Medicine; Visit Provider Internal Medicine
DX: R07.89 Other chest pain (principal); R10.9 Unspecified abdominal pain; K58.0 Irritable bowel syndrome with diarrhea; G35 Multiple sclerosis; I25.10 Atherosclerotic heart disease of native coronary artery without angina pectoris; I25.5 Ischemic cardiomyopathy; I48.0 Paroxysmal atrial fibrillation; E78.5 Hyperlipidemia, unspecified; F32.9 Major depressive disorder, single episode, unspecified; E66.9 Obesity, unspecified; J44.9 Chronic obstructive pulmonary disease, unspecified; I25.2 Old myocardial infarction; D64.9 Anemia, unspecified; I50.22 Chronic systolic (congestive) heart failure; I11.0 Hypertensive heart disease with heart failure; F41.9 Anxiety disorder, unspecified; R11.2 Nausea with vomiting, unspecified; G47.33 Obstructive sleep apnea (adult) (pediatric); G25.81 Restless legs syndrome; K21.9 Gastro-esophageal reflux disease without esophagitis; F17.210 Nicotine dependence, cigarettes, uncomplicated; Z87.19 Personal history of other diseases of the digestive system; Z95.5 Presence of coronary angioplasty implant and graft; Z79.899 Other long term (current) drug therapy; Z79.84 Long term (current) use of oral hypoglycemic drugs; Z79.82 Long term (current) use of aspirin; Z79.02 Long term (current) use of 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/antiplatelets; Z68.30 Body mass index [BMI] 30.0-30.9, adult
CPT/HCPCS: 36415; 71045; 74176; 80048; 80053; 80061; 81001; 82962; 83735; 84484; 85025; 85379; 93005; 96361; 96372; 96374; 96375; 96376; 99218; 99285; 99406; A4216; G0378; J2405

== ENCOUNTER 2020-07-28 21:40 | Observation (INO) | payer MEDICARE, MEDICAID, SELFPAY ==
[2016-07-13 11:45] VITALS: BMI 31.4
[2020-07-20 21:24] VITALS: BMI 29.7
[2020-07-28 21:42] VITALS: BP 111/80; BP 152/69; PULSE 76; PULSE 79; RESP 20; RESP 24; TEMP 36; O2SAT 100; BMI 30.4
--- NOTE | 2020-07-28 22:17 | EKG12_ITS ---
Test Reason : CP Blood Pressure : / mmHG Vent. Rate : 075 BPM Atrial Rate : 075 BPM P-R Int : 158 ms QRS Dur : 094 ms QT Int : 404 ms P-R-T Axes : 065 206 110 degrees QTc Int : 451 ms Normal sinus rhythm Low voltage QRS Incomplete right bundle branch block Possible Anterolateral infarct , age undetermined Abnormal ECG Confirmed by ALLAN WITT, DORYS ([id number]), editor department ANA MEDRANO ([id number]) on 08/01/2020 7:48:30 AM Referred By: CARINA Confirmed By:DORYS LEMUS MD
--- NOTE | 2020-07-28 22:19 | ED.VIS.GEN ---
History of Present Illness Chief Complaint: Chest Pain Informant: Patient Onset: Today Context: - - Woke from sleep at 8:30 PM with pain Timing: Continuous Current Severity: Moderate Maximum Severity: Moderate Narrative: Patient presents secondary to chest pain. She states she was awoken from sleep at 8:30 PM with heavy tight sensation across her chest. She did take 1 nitro without improvement. Squad gave her aspirin but she then developed vomiting. She states she believes she vomited her evening medications also. Patient does have history of cardiac disease with prior STEMI and cardiac stent. Patient was admitted here in late June with chest pain. At that time she had cycling of cardiac enzymes but no stress test was performed. Last stress test was in August 2019 and unremarkable at that time. Patient also complains of rash to her right breast area. She states she just noticed this today. - Past Medical History (1) Atherosclerotic heart disease of [place] coronary artery without angina pectoris Status: Chronic (2) Chronic systolic (congestive) heart failure Status: Chronic (3) Essential (primary) hypertension Status: Chronic (4) History of ST elevation myocardial infarction (STEMI) Status: Chronic (5) History of coronary artery stent placement Status: Chronic Comment: PCI-aspiration [id number] LAD 3.0 mm x 18 mm Resolute Stent and POBA-Mid D2 04/08/16 (6) Hyperlipemia Status: Chronic (7) Ischemic cardiomyopathy Status: Chronic (8) Major depression Status: Chronic (9) Paroxysmal atrial fibrillation Status: Chronic Past Medical History - Allergies and Home Meds Allergies/Adverse Reactions: Allergies indomethacin [From Indocin] Allergy (Verified 07/28/20 21:41) Hives indomethacin sodium [From Indocin] Allergy (Verified 07/28/20 21:41) Hives iodine Allergy (Verified 07/28/20 21:41) Hives propoxyphene napsylate [From Darvocet-N] Allergy (Verified 07/28/20 21:41) Out of control aripiprazole [From Abilify] Adverse Reaction (Verified 07/28/20 21:41) Other drool uncontrollably aspirin Adverse Reaction (Verified 07/28/20 21:41) Upset Stomach when taken in high doses clindamycin Adverse Reaction (Verified 07/28/20 21:41) Nausea metformin Adverse Reaction (Verified 07/28/20 21:41) Other IT CAUSES MY KIDNEYS TO DO WEIRD THINGS sumatriptan [From Imitrex] Adverse Reaction (Verified 07/28/20 21:41) Vomiting Primary Care Physician: Tom Sherman MD [Primary Care Provider] - Prior records reviewed: Yes Surgical History: adenoidectomy, angioplasty - Cardiac stent, tonsillectomy, - - L foot great toe ampuation, Back surgery x 3, L carpal tunnel surgery x 2, R carpal tunnel surgery x 1, R thumb reconstructive surgery. cervical spinal surgery february 27 at [facility]. Smoking Status: Current every day smoker - Family History Maternal Family History: Family History (Last Reviewed 05/11/20 @ 13:11 by Anahi Young) Father Cancer Mother Cancer Family History: Reports: Cancer - mother pancreatic ca Paternal Family History: Family History (Last Reviewed 05/11/20 @ 13:11 by Anahi Young) Father Cancer Mother Cancer Family History: Reports: Cancer - father lung ca., - - Lung cancer Review of Systems General: Denies: Chills, Fever Eyes: Denies: Visual changes - bilaterally ENT: Denies: Bilateral ear pain Cardiovascular: Reports: Chest pain Respiratory: Denies: Dyspnea, Cough Gastrointestinal: Reports: Nausea, Vomiting. Denies: Abdominal pain Genitourinary: Denies: Dysuria Musculoskeletal: Denies: Swelling, Extremity Pain Skin: Reports: Rash Neurological: Reports: Headache Hematologic: Denies: Easy bruising, Easy bleeding Allergy: Denies: Uticaria Physical Exam Vital Signs/Narrative: Vital Signs Temp Pulse Resp BP Pulse Ox 07/28/20 21:42 96.8 F L 79 20 H 111/80 100 Inital Vital Signs reviewed: Yes General: Well nourished, Well developed Head: Normocephalic ENT: Moist mucous membranes Neck: Supple Cardiovascular: Regular rate, Regular rhythm Respiratory: No distress, CTA bilaterally Abdomen: Soft, Nontender, Hypoactive bowel sounds Extremities: Nontender Skin: - - Skin rash beneath right breast consistant with yeast skin infection. Neurological: Alert, Oriented x3, Normal Strength, Normal Sensation Psychological: Normal affect Diagnostic/Tx/Re-eval Chest X-Ray - ED: 1 View, Read by ED Physician, Normal, Heart, Lungs, Mediastinum Impressions Chest X-Ray 07/28/20 22:52 IMPRESSION: No acute radiographic abnormalities. Electronically Signed: Leland Ferraro MD at 23:05 EDT Tel , Service support , 07/28/20 22:52 Chest 1 View (Portable) [RAD] Stat Laboratory Results 07/28/20 07/28/20 22:35 22:35 WBC 7.2 RBC 3.43 L Hgb 9.4 L Hct 31.4 L MCV 91.5 MCH 27.4 MCHC 29.9 L RDW Std Deviation 53.1 H RDW Coeff of Yeimi 15.9 H Plt Count 230 MPV 9.3 Immature Gran % (Auto) 0.100 Neut % (Auto) 59.4 Lymph % (Auto) 25.3 [place] % (Auto) 10.8 H Eos % (Auto) 3.2 Baso % (Auto) 1.2 H Absolute Neuts (auto) 4.3 Absolute Lymphs (auto) 1.83 Nucleated RBC % 0 Sodium 136 Potassium 3.9 Chloride 107 Carbon Dioxide 24.0 Anion Gap 5 BUN 21 H Creatinine 0.84 Estim Creat Clear Calc 60.08 Est GFR (MDRD) Af Amer 88 Est GFR (MDRD) Non-Af 72 BUN/Creatinine Ratio 25.0 H Glucose 120 H Calcium 8.9 Troponin I < 0.015 - EKG Initial EKG Interpretation: Sinus Rhythm - Sinus at 75. No acute ST change. - Medical Decision Making Patient was given morphine and Zofran for pain and nausea. Rash under right breast was treated with nystatin ointment. Portable chest x-ray per my interpretation shows no focal acute findings. EKG reveals no acute ST change. Blood work at this time is unremarkable. Patient does have known history of cardiac disease with a stent. This is a second episode of chest pain that she has been seen for the last 2 weeks. She did not undergo a stress test at her last admission. I do feel she should be observed for cycling of enzymes and probable stress test at this visit given it is her second visit in a short time period. I will discuss with the hospitalist for admission. ED Disposition - Plan for ED Patient: Disposition: Acute Care Hospital [facility] Diagnosis: Chest pain Referrals: Tom Sherman MD [Primary Care Provider] -
[2020-07-28 22:34] VITALS: O2SAT 98
[2020-07-28] MEDS: Ondansetron 4 MG/2 ML Vial IV (22:42)
[2020-07-28] MEDS: Morphine 4 MG/ML Syringe IV ×2 (22:42→23:59)
[2020-07-28] MEDS: Nystatin/Triamcin Cream Tube 1 APPLIC TOPICAL (22:43)
[2020-07-28 22:45] LABS: Absolute Lymphocyte Count 1.83 X10^3/uL (0.83-4.51); Absolute Neutrophil Count 4.3 X10^3/uL (2.0-7.7); Basophil# 0.09 X10^3/uL; Basophil% 1.2 % (0-1); Eosinophil# 0.23 X10^3/uL; Eosinophils% 3.2 % (0-5); Hematocrit 31.4 % (37-47); Hemoglobin 9.4 g/dL (12.0-15.0); Lymphocyte # 1.83 X10^3/ul (4.0); Lymphocyte % 25.3 % (19-41); Mean Corp Hgb Conc 29.9 g/dL (32-36); Mean Corpuscular Hgb 27.4 pg (27.0-32.0); Mean Corpuscular Volume 91.5 fL (81-99); Mean Platelet Vol. 9.3 fl (6.2-12.0); Monocyte# 0.78 X10^3/uL; Monocyte% 10.8 % (0-10); NRBC Flagged by Analyzer 0 % (0-5); Neutrophil # 4.29 X10^3/uL (2.7-7.7); Neutrophil % 59.4 % (47-70); Platelet Count 230 K/mm3 (150-450); RBC Distribution Width CV 15.9 % (11.6-14.6); RBC Distribution Width SD 53.1 fl (35.1-43.9); Red Blood Count 3.43 M/mm3 (4.2-5.4); White Blood Count 7.2 K/mm3 (4.4-11.0)
[2020-07-28 22:51] VITALS: BP 118/85; PULSE 66; RESP 15; O2SAT 98
--- NOTE | 2020-07-28 22:52 | RAD_ITS ---
INDICATION: chest pain EXAMINATION/TECHNIQUE: X-RAY - XR Chest 1 View COMPARISON: 07/20/2020. FINDINGS: The lungs are clear. The cardiomediastinal silhouette is unremarkable. No pleural effusion or pneumothorax. No acute osseous abnormalities. RAD/Chest 1 View (Portable) IMPRESSION: No acute radiographic abnormalities. Electronically Signed: Leland Ferraro MD at 23:05 EDT Tel , Service support ,
[2020-07-28 23:03] LABS: Anion Gap 5 (5-15); BUN 21 mg/dL (7-18); Calcium,Total 8.9 mg/dL (8.5-10.1); Chloride 107 mmol/L (98-107); Creatinine, Serum 0.84 mg/dL (0.55-1.02); EST Glomerular Filtration Rate 72 mL/min (>60); Est Glom Filt Rate - Afr Amer 88 mL/min (>60); Estimated Creatinine Clearance 60.08 ml/min; Glucose 120 mg/dL (74-106); Potassium 3.9 mmol/L (3.5-5.1); Sodium Level 136 mmol/L (136-145)
--- NOTE | 2020-07-28 23:58 | HP.PCM_ITS ---
Problem List (1) Chest pain Status: Acute Qualifiers: Chest pain type: unspecified Qualified Code(s): R07.9 - Chest pain, unspecified (2) Irritable bowel syndrome with diarrhea Status: Chronic (3) Hyperlipemia Status: Chronic Qualifiers: Hyperlipidemia type: pure hypercholesterolemia Qualified Code(s): E78.00 - Pure hypercholesterolemia, unspecified; E78.0 - Pure hypercholesterolemia (4) Pancreatitis Status: Chronic (5) Major depression Status: Chronic Qualifiers: Major depression recurrence: unspecified whether recurrent Active/Remission status: remission status unspecified Qualified Code(s): F32.9 - Major depressive disorder, single episode, unspecified (6) Atherosclerotic heart disease of [place] coronary artery without angina pectoris Status: Chronic Qualifiers: [place] vs. transplanted heart: [place] heart Qualified Code(s): I25.10 - Atherosclerotic heart disease of [place] coronary artery without angina pectoris (7) History of ST elevation myocardial infarction (STEMI) Status: Chronic (8) Old anterior wall myocardial infarction Status: Chronic (9) History of coronary artery stent placement Status: Chronic Comment: PCI-aspiration [id number] LAD 3.0 mm x 18 mm Resolute Stent and POBA-Mid D2 04/08/16 (10) Ischemic cardiomyopathy Status: Chronic (11) Chronic systolic (congestive) heart failure Status: Chronic (12) Essential (primary) hypertension Status: Chronic (13) Typical atrial flutter Status: Chronic (14) Paroxysmal atrial fibrillation Status: Chronic (15) Nicotine abuse Status: Chronic History of Present Illness Date of Admission: 07/28/20 Chief Complaint: chest pain The patient is a 64 year old F with a significant history of ischemic cardiomyopathy status post acute anterior apical/inferior myocardial infarction in March 2016 requiring emergent thrombectomy and stenting of her mid LAD; LV apical thrombus; Takotsubo syndrome; multiple sclerosis; suicidal attempt,major depression; anxiety disorder; irritable bowel syndrome; diabetes mellitus; essential hypertension/COPD who presents emergency department with excruciating substernal chest pain that woke her up from her sleep. Symptoms started few hours before presentation. She describes her chest pain as sharp and stabbing. The chest pain radiates to under her bilateral breast in a bandlike pattern. She denies any shortness of breath or sweating with her chest pain. She took nitroglycerin at home that did not help with her chest pain. She was given morphine sulfate and that temporarily helped with her chest pain at the ED. Paramedics gave patient aspirin. However patient had nausea and vomiting after receiving aspirin from paramedics. Also patient reports of a rash under her right breast. Of note patient was at our hospital on 07/20/2020 and discharged on 07/21/2020 for musculoskeletal chest pain. Past Medical History Past Medical History (Chronic Problems): Chronic Problems (Last Reviewed 05/11/20 @ 13:11 by Anahi Young) Irritable bowel syndrome with diarrhea (Chronic) Hyperlipemia (Chronic) Pancreatitis (Chronic) Major depression (Chronic) Atherosclerotic heart disease of [place] coronary artery without angina pectoris (Chronic) History of ST elevation myocardial infarction (STEMI) (Chronic) Old anterior wall myocardial infarction (Chronic 04/08/16) History of coronary artery stent placement (Chronic 04/08/16) PCI-aspiration [id number] LAD 3.0 mm x 18 mm Resolute Stent and POBA-Mid D2 04/08/16 Ischemic cardiomyopathy (Chronic) Chronic systolic (congestive) heart failure (Chronic) Essential (primary) hypertension (Chronic) Typical atrial flutter (Chronic) Paroxysmal atrial fibrillation (Chronic) Nicotine abuse (Chronic) Medical History: Medical History (Last Reviewed 07/29/20 @ 00:[address] Apolinar Zavala MD) Major depression (Chronic) F32.9 Atherosclerotic heart disease of [place] coronary artery without angina pectoris (Chronic) I25.[address] elevation myocardial infarction (STEMI) (Chronic) I25.2 Ischemic cardiomyopathy (Chronic) I25.5 Chronic systolic (congestive) heart failure (Chronic) I50.22 Essential (primary) hypertension (Chronic) I10 Paroxysmal atrial fibrillation (Chronic) I48.0 Nicotine abuse (Chronic) Z72.0 Anxiety F41.9 COPD (chronic obstructive pulmonary disease) J44.9 Cervical spinal stenosis M48.02 Diabetes mellitus type 2 in nonobese E11.9 IBS (irritable bowel syndrome) K58.9 Left ventricular hypertrophy I51.7 Multiple sclerosis G35 BRYAN (obstructive sleep apnea) G47.33 RLS (restless legs syndrome) G25.81 Suicidal ideation R45.851 Apical mural thrombus with acute UT I21.29 Takotsubo syndrome I51.81 Irritable bowel syndrome with diarrhea (Inactive) K58.0 Vitamin B12 deficiency (Inactive) E53.8 Allergies indomethacin [From Indocin] Allergy (Verified 07/28/20 21:41) Hives indomethacin sodium [From Indocin] Allergy (Verified 07/28/20 21:41) Hives iodine Allergy (Verified 07/28/20 21:41) Hives propoxyphene napsylate [From Darvocet-N] Allergy (Verified 07/28/20 21:41) Out of control aripiprazole [From Abilify] Adverse Reaction (Verified 07/28/20 21:41) Other drool uncontrollably aspirin Adverse Reaction (Verified 07/28/20 21:41) Upset Stomach when taken in high doses clindamycin Adverse Reaction (Verified 07/28/20 21:41) Nausea metformin Adverse Reaction (Verified 07/28/20 21:41) Other IT CAUSES MY KIDNEYS TO DO WEIRD THINGS sumatriptan [From Imitrex] Adverse Reaction (Verified 07/28/20 21:41) Vomiting Home Medications: Ambulatory Orders Medication Instructions Recorded Aspirin E.C. [Ecotrin] 81 mg PO DAILY@0800 10/21/16 Glimepiride [Amaryl] 4 mg PO BID 10/21/16 Potassium Chloride Oral Tablet 20 meq PO DAILY 10/06/17 [K-Dur] Albuterol Inhaler [Ventolin Hfa] 2 puff INHALATION Q6H PRN PRN 10/23/17 lisinopril 2.5 mg tablet 2.5 mg PO DAILY #30 tab 08/16/19 ropinirole 0.5 mg tablet 10 mg PO QHS tab 08/21/19 nitroglycerin 0.4 mg sublingual 0.4 mg SUBLINGUAL ONCE #25 tab 08/23/19 tablet Estrogen,Con/M-Progest Acet 1 tab PO DAILY 09/20/19 [Prempro 0.625-2.5 MG Tablet] Teriflunomide [Aubagio] 14 mg PO DAILY 09/20/19 Carvedilol [Coreg (Beta Marielle)] 6.25 mg PO BID #60 tab 09/21/19 Modafinil [Provigil] 200 mg PO DAILY 12/12/19 Pioglitazone HCl 30 mg PO DAILY 12/25/19 Ropinirole HCl 10 mg PO LUNCH 12/25/19 Hydroxyzine HCl 50 mg PO 4X/DAY 12/26/19 Handicap Placard See Rx Instructions .ROUTE 03/15/20 .MEDSUPPLY #1 ea dicyclomine 20 mg tablet 20 mg PO BID PRN #180 tab 03/15/20 rosuvastatin 20 mg tablet 20 mg PO QHS #30 tab 04/16/20 duloxetine 30 mg capsule,delayed 30 mg PO BID #60 cap 05/11/20 release mirabegron 25 mg tablet,extended 25 mg PO Q24H #60 tab 05/11/20 release 24 hr clopidogrel 75 mg tablet 75 mg PO DAILY #90 tab 05/14/20 trazodone 50 mg tablet 50 mg PO QHS PRN #30 tab 06/26/20 pantoprazole 40 mg tablet,delayed 40 mg PO DAILY #30 tablet 07/25/20 release Surgical History: Surgical History (Last Reviewed 07/29/20 @ 00:[address] Apolinar Zavala MD) History of coronary artery stent placement (Chronic) Onset Date: 04/08/16 Z95.5 PCI-aspiration [id number] LAD 3.0 mm x 18 mm Resolute Stent and POBA-Mid D2 04/08/16 History of loop recorder Onset Date: 06/2014 Z98.890 History of amputation of left great toe Z89.412 staph infection History of back surgery Z98.890 History of cervical discectomy Z98.890 History of left knee surgery Z98.890 torn meniscus repair x 2 History of tonsillectomy and adenoidectomy Z98.890 Surgical History: adenoidectomy, angioplasty - Cardiac stent, tonsillectomy, - - L foot great toe ampuation, Back surgery x 3, L carpal tunnel surgery x 2, R carpal tunnel surgery x 1, R thumb reconstructive surgery. cervical spinal surgery february 27 at [facility]. Psychiatric History: Anxiety, Depression, - - Mild cognitive impairment [employer] History: - - Menopausal syndrome. Smoking Status: Current every day smoker - *Family History Maternal Family History: Family History (Last Reviewed 07/29/20 @ 00:[address] Apolinar Zavala MD) Father Cancer Mother Cancer History Items: Cancer - mother pancreatic ca Paternal Family History: Family History (Last Reviewed 07/29/20 @ 00:[address] Apolinar Zavala MD) Father Cancer Mother Cancer History Items: Cancer - father lung ca., - - Lung cancer Review of Systems Constitutional: Denies: Chills, Fever, Weight Change HEENT: Denies: Head Aches, Sinus Congestion, Sinus Drainage Cardiovascular: Reports: Chest Pain. Denies: Palpitations Respiratory: Denies: Cough, Shortness of breath at rest, Sputum production Gastrointestinal: Denies: Abdominal Pain, Nausea, Vomiting Genitourinary: Denies: Dysuria Musculoskeletal: Denies: Joint Pain, Joint Tenderness Skin: Reports: Rash - under right beast. Denies: Wounds Neurological: Denies: Numbness, Tingling, Focal weakness Psychiatric: Denies: Anxiety, Depression, Homicidal Ideations, Suicidal Ideations Hematologic/ Lymphatic: Denies: Easy Bruising, Easy Bleeding VTE Information - Inpt Only VTE Present on Admission: No VTE Mechan Device Prophylaxis: None VTE Pharm Prophylaxis ordered?: Yes Patient Problems: Active and Suspected Problems (Last Reviewed 05/11/20 @ 13:11 by Anahi Young) Chest pain (Acute) - Physical Exam Vitals/I&O's: Vital Signs Temp Pulse Resp BP Pulse Ox 96.8 F L 66 15 118/85 H 98 07/28/20 21:42 07/28/20 22:51 07/28/20 22:51 07/28/20 22:51 07/28/20 22:51 Oxygen Flow Rate (L/min) 2 Oxygen Delivery Method Nasal Cannula Weight: 82.9 kg Body Mass Index (BMI) 30.4 Finger Stick Blood Glucose 151 General: Alert, Oriented x3, Cooperative HEENT: Atraumatic, PERRLA, EOMI, Normocephalic Neck: Supple, No JVD, Negative Carotid Bruits Lungs: Clear to auscultation, Normal air movement, - Cardiovascular: Regular rate, No murmurs Abdomen: Bowel Sounds Present, Soft, Non Tender Extremities: No edema, Capillary Refill Less than 3 Seconds, - - Amputation of left hallucis. Skin: - - Maculopapular rash with erythema under right breast Musculoskeletal: Tenderness - Chest Neurological: Cranial nerves II-XII grossly intact Psych/Mental Status: Normal Affect, Appropriate Laboratory Results 07/28/20 22:35: WBC 7.2, RBC 3.43 L, Hgb 9.4 L, Hct 31.4 L, MCV 91.5, MCH 27.4, MCHC 29.9 L, RDW Std Deviation 53.1 H, RDW Coeff of [place] 15.9 H, Plt Count 230, MPV 9.3, Immature Gran % (Auto) 0.100, Neut % (Auto) 59.4, Lymph % (Auto) 25.3, [place] % (Auto) 10.8 H, Eos % (Auto) 3.2, Baso % (Auto) 1.2 H, Absolute Neuts (auto) 4.3, Absolute Lymphs (auto) 1.83, Nucleated RBC % 0 07/28/20 22:35: Sodium 136, Potassium 3.9, Chloride 107, Carbon Dioxide 24.0, Anion Gap 5, BUN 21 H, Creatinine 0.84, Estim Creat Clear Calc 60.08, Est GFR (MDRD) Af Amer 88, Est GFR (MDRD) Non-Af 72, BUN/Creatinine Ratio 25.0 H, Glucose 120 H, Calcium 8.9, Troponin I < 0.015 Assessment/Plan All Active Problems (Last Reviewed 05/11/20 @ 13:11 by Anahi Young) Chest pain (Acute) The patient is a 64 year old F with a significant history of ischemic cardiomyopathy status post acute anterior apical/inferior myocardial infarction in March 2016 requiring emergent thrombectomy and stenting of her mid LAD; LV apical thrombus; Takotsubo syndrome; multiple sclerosis; suicidal attempt,major depression; anxiety disorder; irritable bowel syndrome; diabetes mellitus; essential hypertension/COPD who presents emergency department with excruciating substernal chest pain that woke her up from her sleep. Chest pain Place on a monitored bed at PCU Radiologist impression of chest x-ray: No acute radiographic abnormalities. Actual chest x-ray was independently interpreted. I agree with radiologist interpretation. Actual EKG tracing was independently visualized. EKG tracing was unchanged from EKG tracing on July 21, 2020. No ST or T wave abnormalities noted. ASA 81 mg p.o. daily and Plavix 75 mg daily continued. SL NTG 0.4 mg prn as needed for chest pain ordered Morphine as needed for pain ordered Lipid panel on 07/21/2020 was reviewed.Her LDL cholesterol was 13. HDL was 54. Triglycerides was 124. Cholesterol was 92. Serial cardiac enzymes ordered Stat EKG as needed for chest pain And had tenderness of the chest upon palpation. However because of patient's was at a hospital about 2 weeks ago with chest pain consider stress test. Review of record showed dobutamine stress test on 09/21/2019: Stress test showed estimated ejection fraction of 55% (?65%) with basal anteroseptal mild hypokinesis and mild hypokinesis of the mid anterior. Echocardiogram on 12/17/2011 showed estimated ejection fraction of 60%. Yeast infection of inframammillary fold Received Mycolog on the right breast at emergency department; continued. Diabetes mellitus Patient with mild hyperglycemia on presentation Glimepiride and pioglitazone continued. When n.p.o. consider holding glimepiride. Blood glucose is only mildly elevated. No Accu-Cheks for now. Hypertension Blood pressure is not within goal Lisinopril and carvedilol continued. Trend blood pressure and adjust blood pressure medications. Tobacco abuse Counselled History of ischemic cardiomyopathy Stable Lisinopril and carvedilol continued Depression/insomnia Trazodone continued Cymbalta continued DVT prophylaxis Subcutaneous Lovenox ordered OBSV E&M: [id number] Initial observation care L3
[2020-07-29] VITALS (11 sets, daily range): BP systolic 118–143; BP diastolic 54–70; PULSE 61–73; RESP 18; TEMP 36.4–36.7; O2SAT 94–100; BMI 29.6
--- NOTE | 2020-07-29 00:24 | EKG12_ITS ---
Test Reason : CP ADMIT Blood Pressure : / mmHG Vent. Rate : 065 BPM Atrial Rate : 065 BPM P-R Int : 154 ms QRS Dur : 096 ms QT Int : 428 ms P-R-T Axes : 034 -27 076 degrees QTc Int : 445 ms Normal sinus rhythm Inferior infarct (cited on or before 03-AUG-2018) Anterior infarct , age undetermined Abnormal ECG When compared with ECG of 21-JUL-2020 04:29, Nonspecific T wave abnormality, improved in Lateral leads Confirmed by ALLAN WITT, DORYS ([id number]), market editor JUDY MORIN ([id number]) on 08/03/2020 3:11:34 PM Referred By: DR PERALTA Confirmed By:DORYS LEMUS MD
[2020-07-29] MEDS: Ondansetron 4 MG/2 ML Vial IV ×2 (04:10→13:23)
--- NOTE | 2020-07-29 04:19 | NURSING ---
Pt nauseous and in pain. This RN offered pt Tylenol for pain. Pt stated that she would not be able to keep Tylenol down and to see if there was something else ordered for pain; pt refused tylenol. RN gave prn IV morphine for pain 8 out of 10.
[2020-07-29] MEDS: 0.9% Saline Lock 10 ML Syringe IV ×3 (04:21→13:24)
[2020-07-29] MEDS: Morphine 2 MG/ML Syringe IV ×3 (04:21→13:23)
[2020-07-29] MEDS: hydrOXYzine PAM 25 MG Capsule 50 MG PO ×2 (08:43→13:23)
[2020-07-29] MEDS: Carvedilol 6.25 MG Tablet PO (08:44)
[2020-07-29] MEDS: Mirabegron 25 MG TAB.ER.24H PO (08:44)
[2020-07-29] MEDS: Pantoprazole Sodium 40 MG Tablet PO (08:44)
[2020-07-29] MEDS: Pioglitazone Hydrochloride 30 MG Tablet PO (08:44)
[2020-07-29] MEDS: Glimepiride 4 MG Tablet PO (08:44)
[2020-07-29] MEDS: Aspirin E.C. 81 MG Tablet PO (08:44)
[2020-07-29] MEDS: Clopidogrel Bisulfate 75 MG Tablet PO (08:44)
[2020-07-29] MEDS: DULoxetine Hcl 30 MG Capsule PO (08:44)
[2020-07-29] MEDS: Potassium Chloride Oral Tablet 20 MEQ PO (08:45)
[2020-07-29] MEDS: Lisinopril 2.5 MG Tablet PO (08:45)
[2020-07-29] MEDS: Enoxaparin 40 MG/0.4 ML Syringe SC (08:46)
--- NOTE | 2020-07-29 09:46 | RAD_ITS ---
STUDY: X-RAY - THORACIC SPINE REASON FOR EXAM: Female, 64 years old. Back pain TECHNIQUE: 3 view(s) of the thoracic spine were obtained. COMPARISON: None. FINDINGS: There is an increase in the normal thoracic kyphosis. There is mild levoscoliosis. No evidence of acute compression fracture deformity. Endplate spondylosis at multiple levels. There is multilevel disc space narrowing of the thoracic spine. The soft tissue structures are unremarkable. RAD/Thoracic Spine 3 Views IMPRESSION: Degenerative changes of the thoracic spine as described above. Electronically Signed: Paco Dumont MD at 12:05 EDT Tel , Service support ,
[2020-07-29] MEDS: Dicyclomine 10 MG Capsule 20 MG PO (10:36)
--- NOTE | 2020-07-29 11:57 | PCM.PN.HOSP ---
Patient Problems: Active and Suspected Problems (Last Reviewed 07/29/20 @ 00:[address] Apolinar Zavala MD) Chest pain (Acute) Subjective: Feeling better. Developed chest pain abruptly at 2030 on 07/28. Afterwards vomited then pain felt better. Still with chest pain, worse with deep respirations. Also with back pain. Fell on her buttocks ~2 months ago, but did not have pain at that time. This pain is similar to pain she experienced 2 weeks and was deemed to be musculoskeletal at that time. Vitals/I&O's: Vital Signs Temp Pulse Resp BP Pulse Ox 36.7 C 67 18 127/54 H 100 07/29/20 08:35 07/29/20 11:00 07/29/20 08:35 07/29/20 08:35 07/29/20 08:35 Oxygen Flow Rate (L/min) 2 Oxygen Delivery Method Room Air Weight: 80.8 kg Body Mass Index (BMI) 29.6 Finger Stick Blood Glucose 151 Intake and Output for Last 24 Hours 07/27/20 07/28/20 07/29/20 23:59 23:59 23:59 Intake Total 460 / 460 Balance 460 / 460 General: Alert, No apparent distress HEENT: Atraumatic, Normocephalic Oral: Moist Mucosa, No Gingival or Mucosal Lesions/ Ulcerations Neck: No Nodes, Thyroid Normal Size and Texture Lungs: Clear to auscultation, Normal air movement, No rhonchi, No wheeze, No rales Cardiovascular: Regular rate, Regular Rhythm, Normal S1, Normal S2, No murmurs Abdomen: Bowel Sounds Present, Soft, Non Tender, Non-Distended, No Hepato-splenomegaly Extremities: No edema, No Calf Tenderness Musculoskeletal: - - reproducible midsternal chest pain with reciprocal back pain in the thoracic region. Psych/Mental Status: Normal Affect, Appropriate Laboratory Results 07/28/20 22:35: WBC 7.2, RBC 3.43 L, Hgb 9.4 L, Hct 31.4 L, MCV 91.5, MCH 27.4, MCHC 29.9 L, RDW Std Deviation 53.1 H, RDW Coeff of [place] 15.9 H, Plt Count 230, MPV 9.3, Immature Gran % (Auto) 0.100, Neut % (Auto) 59.4, Lymph % (Auto) 25.3, [place] % (Auto) 10.8 H, Eos % (Auto) 3.2, Baso % (Auto) 1.2 H, Absolute Neuts (auto) 4.3, Absolute Lymphs (auto) 1.83, Nucleated RBC % 0 07/28/20 22:35: Sodium 136, Potassium 3.9, Chloride 107, Carbon Dioxide 24.0, Anion Gap 5, BUN 21 H, Creatinine 0.84, Estim Creat Clear Calc 60.08, Est GFR (MDRD) Af Amer 88, Est GFR (MDRD) Non-Af 72, BUN/Creatinine Ratio 25.0 H, Glucose 120 H, Calcium 8.9, Troponin I < 0.015 07/29/20 01:35: Troponin I 0.018 07/29/20 04:35: Troponin I 0.024 Current Medications Acetaminophen (Acetaminophen 325 Mg Tablet) 650 mg PO Q6H PRN PRN PRN Reason: Pain Score 1-10/Temp > 100.7 F Aspirin (Aspirin E.C. 81 Mg Tablet) 81 mg PO DAILY@0800 [facility] Last Admin: 07/29/20 08:44 Dose: 81 mg Documented by: Atorvastatin Calcium (Atorvastatin Calcium 40 Mg Tablet) 40 mg PO QHS [facility] Carvedilol (Carvedilol 6.25 Mg Tablet) 6.25 mg PO BIDCM [facility] Last Admin: 07/29/20 08:44 Dose: 6.25 mg Documented by: Clopidogrel Bisulfate (Clopidogrel Bisulfate 75 Mg Tablet) 75 mg PO DAILY [facility] Last Admin: 07/29/20 08:44 Dose: 75 mg Documented by: Dicyclomine HCl (Dicyclomine 10 Mg Capsule) 20 mg PO BID PRN PRN PRN Reason: abdominal discomfort Last Admin: 07/29/20 10:36 Dose: 20 mg Documented by: Duloxetine HCl (Duloxetine Hcl 30 Mg Capsule) 30 mg PO BID [facility] Last Admin: 07/29/20 08:44 Dose: 30 mg Documented by: Enoxaparin Sodium (Enoxaparin 40 Mg/0.4 Ml Syringe) 40 mg SC DAILY [facility] Last Admin: 07/29/20 08:46 Dose: 40 mg Documented by: Estrogens Conj/Medroxyprogest Acet (Estrogen,Con/M-Progest Acet 1 Tab Tablet) 1 tab PO DAILY [facility] Glimepiride (Glimepiride 4 Mg Tablet) 4 mg PO BIDCM [facility] Last Admin: 07/29/20 08:44 Dose: 4 mg Documented by: Hydroxyzine Pamoate (Hydroxyzine [place] 25 Mg Capsule) 50 mg PO 4X/DAY [facility] Last Admin: 07/29/20 08:43 Dose: 50 mg Documented by: Sodium Chloride () 250 mls @ 15 mls/hr IV .[id number] PRN PRN Reason: Saline Flush Sodium Chloride () 250 mls @ 15 mls/hr IV .[id number] PRN PRN Reason: Additional IVPB Infusion Lisinopril (Lisinopril 2.5 Mg Tablet) 2.5 mg PO DAILY [facility] Last Admin: 07/29/20 08:45 Dose: 2.5 mg Documented by: Mirabegron (Mirabegron 25 Mg Tab.Er.24h) 25 mg PO DAILY [facility] Last Admin: 07/29/20 08:44 Dose: 25 mg Documented by: Modafinil (Modafinil 200 Mg Tablet) 200 mg PO DAILY [facility] Last Admin: 07/29/20 08:53 Dose: Not Given Documented by: Morphine Sulfate (Morphine 2 Mg/Ml Syringe) 2 mg IV Q3H PRN PRN PRN Reason: Pain Score 6-10 Last Admin: 07/29/20 08:40 Dose: 2 mg Documented by: Nitroglycerin (Nitroglycerin (Inpatient Use) 0.4 Mg Tab.Subl) 0.4 mg SL Q5M PRN PRN Reason: CARDIAC/CHEST PAIN Non-Formulary Medication (Teriflunomide) 14 mg PO DAILY [facility] Nystatin/Triamcinolone Acetonide (Nystatin/Triamcin Cream Tube) 1 applic TOPICAL BID [facility]; Protocol Last Admin: 07/29/20 08:52 Dose: Not Given Documented by: Ondansetron HCl (Ondansetron 4 Mg/2 Ml Vial) 4 mg IV Q8H PRN PRN PRN Reason: NAUSEA/VOMITING Last Admin: 07/29/20 04:10 Dose: 4 mg Documented by: Pantoprazole Sodium (Pantoprazole Sodium 40 Mg Tablet) 40 mg PO DAILY [facility] Last Admin: 07/29/20 08:44 Dose: 40 mg Documented by: Pioglitazone HCl (Pioglitazone Hydrochloride 30 Mg Tablet) 30 mg PO DAILY [facility] Last Admin: 07/29/20 08:44 Dose: 30 mg Documented by: Potassium Chloride (Potassium Chloride Oral Tablet 20 Meq) 20 meq PO DAILYCM [facility] Last Admin: 07/29/20 08:45 Dose: 20 meq Documented by: Pramipexole Dihydrochloride (Pramipexole Di-Hcl 0.5 Mg Tablet) 0.5 mg PO QHS RANDI Pramipexole Dihydrochloride (Pramipexole Di-Hcl 0.5 Mg Tablet) 0.5 mg PO LUNCH [facility] Senna/Docusate Sodium (Senna/Docusate Sodium 1 Tablet) 2 tablet PO BID PRN PRN PRN Reason: Constipation Sodium Chloride (0.9% Saline Lock 10 Ml Syringe) 10 - 40 ml IV UD PRN PRN Reason: SALINE FLUSH Last Admin: 07/29/20 08:39 Dose: 20 ml Documented by: Trazodone HCl (Trazodone 50 Mg Tablet) 50 mg PO QHS PRN PRN Reason: insomnia STROKE Vital Signs/Narrative: Vital Signs Temp Pulse Resp BP Pulse Ox 07/29/20 11:00 67 07/29/20 08:35 36.7 C 73 18 127/54 H 100 Medical Necessity - Tobacco Use Smoking Status: Current every day smoker Assessment/Plan All Active Problems (Last Reviewed 07/29/20 @ 00:[address] Apolinar Zavala MD) Chest pain (Acute) 64 yo female presents with midsternal chest pain. 2nd presentation in 2 weeks for similiar complaints. CW musculoskeletal chest pain. 1. chest pain musculoskeletal EKG and troponins negative plan no additional cardiac work up T spine xray showed no compression fracture, but progression of kyphosis acetaminophen and ibuprofen 2. Vomiting unclear etiology so far tolerating PO PRN Zofran 3. Right breast marilyn interigo nystatin. This is not Zoster. Patient informed. 4. Estrogen/progesterone usage Increase risk for VTE follow up with prescriber for other alternatives (if used for osteoporosis prevention) or discontinuation 5. Polypharmacy on 22 medications at home high risk for medical interactions and morbidity medications for concern: modafinil, ropinirole, trazodone pt informed she would receive any narcotics upon discharge
--- NOTE | 2020-07-29 12:19 | DCINST_ITS ---
- Discharge Diagnoses Current Active Problems: Current Active and Chronic Problems (Last Reviewed 07/29/20 @ 00:[address] Apolinar Zavala MD) Chest pain (Acute) Irritable bowel syndrome with diarrhea (Chronic) Hyperlipemia (Chronic) Pancreatitis (Chronic) Major depression (Chronic) Atherosclerotic heart disease of [place] coronary artery without angina pectoris (Chronic) History of ST elevation myocardial infarction (STEMI) (Chronic) Old anterior wall myocardial infarction (Chronic 04/08/16) History of coronary artery stent placement (Chronic 04/08/16) PCI-aspiration [id number] LAD 3.0 mm x 18 mm Resolute Stent and POBA-Mid D2 04/08/16 Ischemic cardiomyopathy (Chronic) Chronic systolic (congestive) heart failure (Chronic) Essential (primary) hypertension (Chronic) Typical atrial flutter (Chronic) Paroxysmal atrial fibrillation (Chronic) Nicotine abuse (Chronic) You will use the following diet at home:: Calorie/Carbohydrate Controlled (specify 1200, 1400, etc) - 1800 Your food should be the consistency of: Regular Your liquids should be the consistency of: Regular/Thin Discharge Activity: Return to Normal Activity Call your doctor if you observe: - - intractable nausea and vomiting. Allergies/Adverse Reactions: Allergies indomethacin [From Indocin] Allergy (Verified 07/29/20 00:37) Hives indomethacin sodium [From Indocin] Allergy (Verified 07/29/20 00:37) Hives iodine Allergy (Verified 07/29/20 00:37) Hives propoxyphene napsylate [From Darvocet-N] Allergy (Verified 07/29/20 00:37) Out of control aripiprazole [From Abilify] Adverse Reaction (Verified 07/29/20 00:37) Other drool uncontrollably aspirin Adverse Reaction (Verified 07/29/20 00:37) Upset Stomach when taken in high doses clindamycin Adverse Reaction (Verified 07/29/20 00:37) Nausea metformin Adverse Reaction (Verified 07/29/20 00:37) Other IT CAUSES MY KIDNEYS TO DO WEIRD THINGS sumatriptan [From Imitrex] Adverse Reaction (Verified 07/29/20 00:37) Vomiting Medications to take at Discharge Aspirin E.C. [Ecotrin] 81 mg PO DAILY@0800 10/21/16 Glimepiride [Amaryl] 4 mg PO BID 10/21/16 Potassium Chloride Oral Tablet [K-Dur] 20 meq PO DAILY 10/06/17 Albuterol Inhaler [Ventolin Hfa] 2 puff INHALATION Q6H PRN PRN 10/23/17 lisinopril 2.5 mg tablet 2.5 mg PO DAILY #30 tab 08/16/19 ropinirole 0.5 mg tablet 1 mg PO QHS tab 08/21/19 nitroglycerin 0.4 mg sublingual tablet 0.4 mg SUBLINGUAL ONCE #25 tab 08/23/19 Estrogen,Con/M-Progest Acet [Prempro 0.625-2.5 MG Tablet] 1 tab PO DAILY 09/20/19 Teriflunomide [Aubagio] 14 mg PO DAILY 09/20/19 Carvedilol [Coreg (Beta Marielle)] 6.25 mg PO BID #60 tab 09/21/19 Modafinil [Provigil] 200 mg PO DAILY 12/12/19 Pioglitazone HCl 30 mg PO DAILY 12/25/19 Ropinirole HCl 1 mg PO LUNCH 12/25/19 Hydroxyzine HCl 50 mg PO 4X/DAY 12/26/19 Handicap Placard See Rx Instructions .ROUTE .MEDSUPPLY #1 ea 03/15/20 dicyclomine 20 mg tablet 20 mg PO BID PRN #180 tab 03/15/20 rosuvastatin 20 mg tablet 20 mg PO QHS #30 tab 04/16/20 duloxetine 30 mg capsule,delayed release 30 mg PO BID #60 cap 05/11/20 mirabegron 25 mg tablet,extended release 24 hr 25 mg PO Q24H #60 tab 05/11/20 clopidogrel 75 mg tablet 75 mg PO DAILY #90 tab 05/14/20 trazodone 50 mg tablet 50 mg PO QHS PRN #30 tab 06/26/20 pantoprazole 40 mg tablet,delayed release 40 mg PO DAILY #30 tablet 07/25/20 Acetaminophen 1,000 mg PO TID PRN #1 tablet 07/29/20 Ibuprofen 600 mg PO 4X/DAY PRN #1 tablet 07/29/20 Ondansetron [Zofran] 8 mg PO Q8H PRN PRN #20 tab 07/29/20 Sucralfate [Carafate] 1 gm PO 4X/DAY 07/29/20 The following prescriptions were given: Acetaminophen 1,000 mg PO TID PRN #1 tablet PRN Reason: pain 1-02/03 Ibuprofen 600 mg PO 4X/DAY PRN #1 tablet PRN Reason: y Ondansetron [Zofran] 8 mg PO Q8H PRN PRN #20 tab PRN Reason: Nausea/Vomiting Transmission Status: Pending to [facility] #30 Primary Care Physician: Tom Sherman MD [Primary Care Provider] - Within 2 Weeks Test Results: Test results from this visit will be discussed in further detail at your follow- up appointment, if applicable. Please Follow Up With: Elias Butler MD When: 01/03/2021, already scheduled Proposed Discharge Date: 07/29/20
--- NOTE | 2020-07-29 12:20 | PCM.DC.SUM ---
Discharge Date and Diagnosis - Problem List Patient Problems: Active and Suspected Problems (Last Reviewed 07/29/20 @ 00:[address] Apolinar Zavala MD) Chest pain (Acute) Date of Admission: 07/28/20 Date of Discharge: 07/29/20 - Primary Discharge Diagnosis Acute Problems: Active Problems (Last Reviewed 07/29/20 @ 00:[address] Apolinar Zavala MD) Chest pain (Acute) - Secondary Discharge Diagnosis Chronic Problems: Chronic Problems (Last Reviewed 07/29/20 @ 00:[address] Apolinar Zavala MD) Irritable bowel syndrome with diarrhea (Chronic) Hyperlipemia (Chronic) Pancreatitis (Chronic) Major depression (Chronic) Atherosclerotic heart disease of [place] coronary artery without angina pectoris (Chronic) History of ST elevation myocardial infarction (STEMI) (Chronic) Old anterior wall myocardial infarction (Chronic 04/08/16) History of coronary artery stent placement (Chronic 04/08/16) PCI-aspiration [id number] LAD 3.0 mm x 18 mm Resolute Stent and POBA-Mid D2 04/08/16 Ischemic cardiomyopathy (Chronic) Chronic systolic (congestive) heart failure (Chronic) Essential (primary) hypertension (Chronic) Typical atrial flutter (Chronic) Paroxysmal atrial fibrillation (Chronic) Nicotine abuse (Chronic) Hospital Course and Treatment Imaging Results: 07/29/20 09:46 Xray Thoracic [Thoracic Spine 3 Views] [RAD] Urgent Clinical Impression(s) from Imaging Studies Chest X-Ray 07/28/20 22:52 IMPRESSION: No acute radiographic abnormalities. Electronically Signed: Leland Ferraro MD at 23:05 EDT Tel , Service support , Thoracic Spine X-Ray 07/29/20 09:46 IMPRESSION: Degenerative changes of the thoracic spine as described above. Electronically Signed: Paco Dumont MD at 12:05 EDT Tel , Service support , Operations: None Procedures: None Summary of Care Provided: The patient is a 64 year old F presents with chest pain. 1. chest pain musculoskeletal EKG and troponins negative plan no additional cardiac work up T spine xray showed no compression fracture, but progression of kyphosis acetaminophen and ibuprofen 2. Vomiting unclear etiology so far tolerating PO PRN Zofran 3. Right breast marilyn interigo nystatin. This is not Zoster. Patient informed. 4. Estrogen/progesterone usage Increase risk for VTE follow up with prescriber for other alternatives (if used for osteoporosis prevention) or discontinuation 5. Polypharmacy on 22 medications at home high risk for medical interactions and morbidity medications for concern: modafinil, ropinirole, trazodone pt informed she would receive any narcotics upon discharge [] Patient Problems: Active and Suspected Problems (Last Reviewed 07/29/20 @ 00:[address] Apolinar Zavala MD) Chest pain (Acute) - Physical Exam Vitals/I&O's: Vital Signs Temp Pulse Resp BP Pulse Ox 36.7 C 67 18 127/54 H 100 07/29/20 08:35 07/29/20 11:00 07/29/20 08:35 07/29/20 08:35 07/29/20 08:35 Oxygen Flow Rate (L/min) 2 Oxygen Delivery Method Room Air Weight: 80.8 kg Body Mass Index (BMI) 29.6 Finger Stick Blood Glucose 151 Intake and Output for Last 24 Hours 07/27/20 07/28/20 07/29/20 23:59 23:59 23:59 Intake Total 460 / 460 Balance 460 / 460 Laboratory Results 07/28/20 22:35: WBC 7.2, RBC 3.43 L, Hgb 9.4 L, Hct 31.4 L, MCV 91.5, MCH 27.4, MCHC 29.9 L, RDW Std Deviation 53.1 H, RDW Coeff of Yeimi 15.9 H, Plt Count 230, MPV 9.3, Immature Gran % (Auto) 0.100, Neut % (Auto) 59.4, Lymph % (Auto) 25.3, [place] % (Auto) 10.8 H, Eos % (Auto) 3.2, Baso % (Auto) 1.2 H, Absolute Neuts (auto) 4.3, Absolute Lymphs (auto) 1.83, Nucleated RBC % 0 07/28/20 22:35: Sodium 136, Potassium 3.9, Chloride 107, Carbon Dioxide 24.0, Anion Gap 5, BUN 21 H, Creatinine 0.84, Estim Creat Clear Calc 60.08, Est GFR (MDRD) Af Amer 88, Est GFR (MDRD) Non-Af 72, BUN/Creatinine Ratio 25.0 H, Glucose 120 H, Calcium 8.9, Troponin I < 0.015 07/29/20 01:35: Troponin I 0.018 07/29/20 04:35: Troponin I 0.024 Current Medications Acetaminophen (Acetaminophen 325 Mg Tablet) 650 mg PO Q6H PRN PRN PRN Reason: Pain Score 1-10/Temp > 100.7 F Aspirin (Aspirin E.C. 81 Mg Tablet) 81 mg PO DAILY@0800 [facility] Last Admin: 07/29/20 08:44 Dose: 81 mg Documented by: Atorvastatin Calcium (Atorvastatin Calcium 40 Mg Tablet) 40 mg PO QHS [facility] Carvedilol ([facility] 6.25 Mg Tablet) [facility] Last Admin: 07/29/20 08:44 Dose: 6.25 mg Documented by: Clopidogrel Bisulfate (Clopidogrel Bisulfate 75 Mg Tablet) 75 mg PO DAILY [facility] Last Admin: 07/29/20 08:44 Dose: 75 mg Documented by: Dicyclomine HCl (Dicyclomine 10 Mg Capsule) 20 mg PO BID PRN PRN PRN Reason: abdominal discomfort Last Admin: 07/29/20 10:36 Dose: 20 mg Documented by: Duloxetine HCl (Duloxetine Hcl 30 Mg Capsule) 30 mg PO BID [facility] Last Admin: 07/29/20 08:44 Dose: 30 mg Documented by: Enoxaparin Sodium (Enoxaparin 40 Mg/0.4 Ml Syringe) 40 mg SC DAILY [facility] Last Admin: 07/29/20 08:46 Dose: 40 mg Documented by: Estrogens Conj/Medroxyprogest Acet (Estrogen,Con/M-Progest Acet 1 Tab Tablet) 1 tab PO DAILY [facility] Glimepiride (Glimepiride 4 Mg Tablet) [facility] Last Admin: 07/29/20 08:44 Dose: 4 mg Documented by: Hydroxyzine Pamoate (Hydroxyzine [place] 25 Mg Capsule) 50 mg PO 4X/DAY [facility] Last Admin: 07/29/20 08:43 Dose: 50 mg Documented by: Sodium Chloride () 250 mls @ 15 mls/hr IV .[id number] PRN PRN Reason: Saline Flush Sodium Chloride () 250 mls @ 15 mls/hr IV .[id number] PRN PRN Reason: Additional IVPB Infusion Lisinopril (Lisinopril 2.5 Mg Tablet) 2.5 mg PO DAILY [facility] Last Admin: 07/29/20 08:45 Dose: 2.5 mg Documented by: Mirabegron (Mirabegron 25 Mg Tab.Er.24h) 25 mg PO DAILY [facility] Last Admin: 07/29/20 08:44 Dose: 25 mg Documented by: Modafinil (Modafinil 200 Mg Tablet) 200 mg PO DAILY [facility] Last Admin: 07/29/20 08:53 Dose: Not Given Documented by: Morphine Sulfate (Morphine 2 Mg/Ml Syringe) 2 mg IV Q3H PRN PRN PRN Reason: Pain Score 6-10 Last Admin: 07/29/20 08:40 Dose: 2 mg Documented by: Nitroglycerin (Nitroglycerin (Inpatient Use) 0.4 Mg Tab.Subl) 0.4 mg SL Q5M PRN PRN Reason: CARDIAC/CHEST PAIN Non-Formulary Medication (Teriflunomide) 14 mg PO DAILY [facility] Nystatin/Triamcinolone Acetonide (Nystatin/Triamcin Cream Tube) 1 applic TOPICAL BID [facility]; Protocol Last Admin: 07/29/20 08:52 Dose: Not Given Documented by: Ondansetron HCl (Ondansetron 4 Mg/2 Ml Vial) 4 mg IV Q8H PRN PRN PRN Reason: NAUSEA/VOMITING Last Admin: 07/29/20 04:10 Dose: 4 mg Documented by: Pantoprazole Sodium (Pantoprazole Sodium 40 Mg Tablet) 40 mg PO DAILY [facility] Last Admin: 07/29/20 08:44 Dose: 40 mg Documented by: Pioglitazone HCl (Pioglitazone Hydrochloride 30 Mg Tablet) 30 mg PO DAILY [facility] Last Admin: 07/29/20 08:44 Dose: 30 mg Documented by: Potassium Chloride (Potassium Chloride Oral Tablet 20 Meq) [facility] Last Admin: 07/29/20 08:45 Dose: 20 meq Documented by: Pramipexole Dihydrochloride (Pramipexole Di-Hcl 0.5 Mg Tablet) 0.5 mg PO QHS RANDI Pramipexole Dihydrochloride (Pramipexole Di-Hcl 0.5 Mg Tablet) 0.5 mg PO LUNCH RANDI Senna/Docusate Sodium (Senna/Docusate Sodium 1 Tablet) 2 tablet PO BID PRN PRN PRN Reason: Constipation Sodium Chloride (0.9% Saline Lock 10 Ml Syringe) 10 - 40 ml IV UD PRN PRN Reason: SALINE FLUSH Last Admin: 07/29/20 08:39 Dose: 20 ml Documented by: Trazodone HCl (Trazodone 50 Mg Tablet) 50 mg PO QHS PRN PRN Reason: insomnia Discharge Diet: 1800 Calorie Control Diet Discharge Activity: Return to Normal Activity Call your doctor if you observe: - - intractable nausea and vomiting. Home Medications: Medications to take at Discharge Aspirin E.C. [Ecotrin] 81 mg PO DAILY@0800 10/21/16 Glimepiride [Amaryl] 4 mg PO BID 10/21/16 Potassium Chloride Oral Tablet [K-Dur] 20 meq PO DAILY 10/06/17 Albuterol Inhaler [Ventolin Hfa] 2 puff INHALATION Q6H PRN PRN 10/23/17 lisinopril 2.5 mg tablet 2.5 mg PO DAILY #30 tab 08/16/19 ropinirole 0.5 mg tablet 1 mg PO QHS tab 08/21/19 nitroglycerin 0.4 mg sublingual tablet 0.4 mg SUBLINGUAL ONCE #25 tab 08/23/19 Estrogen,Con/M-Progest Acet [Prempro 0.625-2.5 MG Tablet] 1 tab PO DAILY 09/20/19 Teriflunomide [Aubagio] 14 mg PO DAILY 09/20/19 Carvedilol [Coreg (Beta Marielle)] 6.25 mg PO BID #60 tab 09/21/19 Modafinil [Provigil] 200 mg PO DAILY 12/12/19 Pioglitazone HCl 30 mg PO DAILY 12/25/19 Ropinirole HCl 1 mg PO LUNCH 12/25/19 Hydroxyzine HCl 50 mg PO 4X/DAY 12/26/19 Handicap Placard See Rx Instructions .ROUTE .MEDSUPPLY #1 ea 03/15/20 dicyclomine 20 mg tablet 20 mg PO BID PRN #180 tab 03/15/20 rosuvastatin 20 mg tablet 20 mg PO QHS #30 tab 04/16/20 duloxetine 30 mg capsule,delayed release 30 mg PO BID #60 cap 05/11/20 mirabegron 25 mg tablet,extended release 24 hr 25 mg PO Q24H #60 tab 05/11/20 clopidogrel 75 mg tablet 75 mg PO DAILY #90 tab 05/14/20 trazodone 50 mg tablet 50 mg PO QHS PRN #30 tab 06/26/20 pantoprazole 40 mg tablet,delayed release 40 mg PO DAILY #30 tablet 07/25/20 Acetaminophen 1,000 mg PO TID PRN #1 tablet 07/29/20 Ibuprofen 600 mg PO 4X/DAY PRN #1 tablet 07/29/20 Ondansetron [Zofran] 8 mg PO Q8H PRN PRN #20 tab 07/29/20 Sucralfate [Carafate] 1 gm PO 4X/DAY 07/29/20 Following Prescriptions Were Given to Patient: Acetaminophen 1,000 mg PO TID PRN #1 tablet PRN Reason: pain 1-02/03 Ibuprofen 600 mg PO 4X/DAY PRN #1 tablet PRN Reason: y Ondansetron [Zofran] 8 mg PO Q8H PRN PRN #20 tab PRN Reason: Nausea/Vomiting Transmission Status: Pending to [facility] #30 Primary Care Physician: Tom Sherman MD [Primary Care Provider] - Within 2 Weeks Please Follow Up With: Elias Butler MD When: 01/03/2021, already scheduled Medical Necessity - Tobacco Use Smoking Status: Current every day smoker Meaningful Use Info Meaningful Use Diagnoses (Choose all that apply): None applicable OBSV E&M: 30031 Observation care discharge
== END 2020-07-29 12:20 | disposition home or self-care (01) ==
LOC: ED 23:20 → PCU 23:38
PROVIDERS: Admitting Provider Hospitalist; Emergency Provider Emergency Medicine; PCP Internal Medicine
DX: R07.89 Other chest pain (principal); I48.0 Paroxysmal atrial fibrillation; E78.5 Hyperlipidemia, unspecified; I11.0 Hypertensive heart disease with heart failure; I25.2 Old myocardial infarction; I50.22 Chronic systolic (congestive) heart failure; I25.10 Atherosclerotic heart disease of native coronary artery without angina pectoris; G47.33 Obstructive sleep apnea (adult) (pediatric); F32.9 Major depressive disorder, single episode, unspecified; F41.9 Anxiety disorder, unspecified; I25.5 Ischemic cardiomyopathy; F17.200 Nicotine dependence, unspecified, uncomplicated; E11.65 Type 2 diabetes mellitus with hyperglycemia; B37.9 Candidiasis, unspecified; K58.0 Irritable bowel syndrome with diarrhea; I48.3 Typical atrial flutter; G35 Multiple sclerosis; J44.9 Chronic obstructive pulmonary disease, unspecified; Z79.899 Other long term (current) drug therapy; Z79.82 Long term (current) use of aspirin; Z79.02 Long term (current) use of 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/antiplatelets; Z79.84 Long term (current) use of oral hypoglycemic drugs; Z95.5 Presence of coronary angioplasty implant and graft
CPT/HCPCS: 36415; 71045; 72072; 80048; 84484; 85025; 93005; 96372; 96374; 96375; 96376; 99218; 99285; A4216; G0378; J2405

== ENCOUNTER 2020-08-04 04:56 | Emergency (ER) | payer MEDICARE, MEDICAID, SELFPAY ==
[2016-07-13 11:45] VITALS: BMI 31.4
[2020-07-29 00:27] VITALS: BMI 29.6
[2020-08-04 04:56] VITALS: BP 146/81; PULSE 84; RESP 16; TEMP 36.7; O2SAT 98; BMI 30.2
[2020-08-04 05:00] VITALS: BP 146/81; PULSE 84; RESP 16; TEMP 36.7; O2SAT 98
--- NOTE | 2020-08-04 05:15 | CT_ITS ---
STUDY: CT ABDOMEN AND PELVIS WITHOUT CONTRAST REASON FOR EXAM: Female, 64 years old. Kidney Stone RADIATION DOSAGE (If Supplied By Facility): CTDIvol = ( 11.51 ) mGy, DLP = ( 554.90 ) mGycm TECHNIQUE: Transaxial images were obtained from the dome of the diaphragm to the symphysis pubis without oral contrast, and without intravenous contrast. Sagittal and coronal images were reconstructed. Individualized dose optimization techniques were used for this CT. COMPARISON: 07/20/2020 FINDINGS: The visualized lung bases are unremarkable. The visualized portions of the heart are within normal limits. Normal liver. Normal gallbladder and extrahepatic biliary system. Normal spleen. Normal pancreas. Normal bilateral adrenal glands. Normal right kidney. Normal left kidney. Normal visualized stomach. Normal small intestine. Normal colon. The appendix is visualized and appears normal. Normal abdominal aorta. Normal inferior vena cava. Normal retroperitoneum. Normal urinary bladder. Normal visualized uterus. Normal abdominal wall. There are diffuse degenerative changes of the visualized lumbar spine. CT/Abdomen/Pelvis without Cont IMPRESSION: No acute findings. No evidence of urolithiasis. Unremarkable appendix. Electronically Signed: Juan Montenegro DO at 6:11 EDT Tel , Service support ,
[2020-08-04 05:25] LABS: Absolute Lymphocyte Count 1.57 X10^3/uL (0.83-4.51); Absolute Neutrophil Count 4.2 X10^3/uL (2.0-7.7); Basophil# 0.07 X10^3/uL; Basophil% 1.1 % (0-1); Hematocrit 33.2 % (37-47); Hemoglobin 10.1 g/dL (12.0-15.0); Lymphocyte # 1.57 X10^3/ul (4.0); Lymphocyte % 23.6 % (19-41); Mean Corp Hgb Conc 30.4 g/dL (32-36); Mean Corpuscular Hgb 27.8 pg (27.0-32.0); Mean Corpuscular Volume 91.5 fL (81-99); Mean Platelet Vol. 9.7 fl (6.2-12.0); NRBC Flagged by Analyzer 0 % (0-5); Platelet Count 296 K/mm3 (150-450); RBC Distribution Width CV 15.5 % (11.6-14.6); RBC Distribution Width SD 52.2 fl (35.1-43.9); Red Blood Count 3.63 M/mm3 (4.2-5.4); White Blood Count 6.7 K/mm3 (4.4-11.0)
[2020-08-04 05:35] LABS: Anion Gap 9 (5-15); BUN 20 mg/dL (7-18); BUN/Creat Ratio 20.9 RATIO (10-20); Calcium,Total 9.1 mg/dL (8.5-10.1); Chloride 103 mmol/L (98-107); Creatinine, Serum 0.96 mg/dL (0.55-1.02); EST Glomerular Filtration Rate 62 mL/min (>60); Est Glom Filt Rate - Afr Amer 75 mL/min (>60); Estimated Creatinine Clearance 52.57 ml/min; Glucose 171 mg/dL (74-106); Potassium 3.8 mmol/L (3.5-5.1); Sodium Level 130 mmol/L (136-145)
[2020-08-04] MEDS: 0.9% Normal Saline 1,000 ML 250 ML IV (05:45)
[2020-08-04] MEDS: Ketorolac 30 MG/ML Syringe IV (05:45)
[2020-08-04 05:51] LABS: Mucous, Urine 0 SEEN /hpf (<or=2+); Red Blood Cells-Urine 0 SEEN /hpf (0-5)
--- NOTE | 2020-08-04 05:52 | ED.DCSUM_ITS ---
History of Present Illness Chief Complaint: Flank Pain Informant: Patient Onset: Yesterday Narrative: Patient presents by EMS from home reported vomiting since 9 PM last evening, at 10:30 PM reported dysuria. Reported right flank pain at the same time. History of kidney infection and kidney stones in the past. Denies fever. Denies diarrhea. Denies abdominal or chest pain. She is followed by Dr. Jessica. Last kidney stone a month ago per patient with no intervention. She has not needed intervention in the past. States she has received Toradol in the past denies any kidney injury or gastric ulcers. Prior similar symptoms: Yes Past Medical History - Allergies and Home Meds Allergies/Adverse Reactions: Allergies indomethacin [From Indocin] Allergy (Verified 08/04/20 05:05) Hives indomethacin sodium [From Indocin] Allergy (Verified 08/04/20 05:05) Hives iodine Allergy (Verified 08/04/20 05:05) Hives propoxyphene napsylate [From Darvocet-N] Allergy (Verified 08/04/20 05:05) Out of control aripiprazole [From Abilify] Adverse Reaction (Verified 08/04/20 05:05) Other drool uncontrollably aspirin Adverse Reaction (Verified 08/04/20 05:05) Upset Stomach when taken in high doses clindamycin Adverse Reaction (Verified 08/04/20 05:05) Nausea metformin Adverse Reaction (Verified 08/04/20 05:05) Other IT CAUSES MY KIDNEYS TO DO WEIRD THINGS sumatriptan [From Imitrex] Adverse Reaction (Verified 08/04/20 05:05) Vomiting Primary Care Physician: Tom Sherman MD [Primary Care Provider] - Past Medical History: - - Hypertension, hyperlipidemia, coronary disease, paroxysmal A. fib, kidney stones. Surgical History: adenoidectomy, angioplasty - Cardiac stent, tonsillectomy, - - L foot great toe ampuation, Back surgery x 3, L carpal tunnel surgery x 2, R carpal tunnel surgery x 1, R thumb reconstructive surgery. cervical spinal surgery february 27 at [facility]. Smoking Status: Current every day smoker - Family History Maternal Family History: Family History (Last Reviewed 07/29/20 @ 00:[address] Apolinar Zavala MD) Father Cancer Mother Cancer Family History: Reports: Cancer - mother pancreatic ca Paternal Family History: Family History (Last Reviewed 07/29/20 @ 00:[address] Apolinar Zavala MD) Father Cancer Mother Cancer Family History: Reports: Cancer - father lung ca., - - Lung cancer Review of Systems General: Denies: Chills, Fever, Sweats Eyes: Denies: Visual changes - bilaterally, Diplopia ENT: Denies: Rhinorrhea, Sore throat Cardiovascular: Denies: Chest pain, Palpitations Respiratory: Denies: Dyspnea, Cough, Dyspnea on exertion Gastrointestinal: Reports: Nausea, Vomiting. Denies: Abdominal pain, Diarrhea, Melena, Hematochezia Genitourinary: Reports: Dysuria. Denies: Hematuria, Frequency Musculoskeletal: Reports: Back pain. Denies: Extremity Pain Skin: Denies: Rash, Wounds Neurological: Denies: Headache, Weakness, Numbness Physical Exam Vital Signs/Narrative: Vital Signs Temp Pulse Resp BP Pulse Ox 08/04/20 05:00 98.1 F 84 16 146/81 H 98 08/04/20 04:56 98.1 F 84 16 146/81 H 98 Inital Vital Signs reviewed: Yes General: Well nourished, Well developed, No Acute Distress Head: Normocephalic, Atraumatic Eyes: Perrl, EOMI ENT: Moist mucous membranes, No rhinorrhea Neck: Supple, Nontender Cardiovascular: Regular rate, Regular rhythm, No murmurs Respiratory: No distress, CTA bilaterally, Chest nontender Abdomen: Soft, Nontender, Nondistended, Normal bowel sounds Back: Nontender, Normal Inspection, CVA tenderness, - - right CVA TTP, no ecchymosis or rash Extremities: Nontender, No edema Skin: Normal color, No rash Neurological: Alert, Oriented x3, Cranial nerves II-XII grossly intact, Normal Strength, Normal Sensation Psychological: Normal affect, Normal Mood Diagnostic/Tx/Re-eval Clinical Impression(s) from Imaging Studies Abdomen/Pelvis CT 08/04/20 05:15 IMPRESSION: No acute findings. No evidence of urolithiasis. Unremarkable appendix. Electronically Signed: Juan Montenegro DO at 6:11 EDT Tel , Service support , Abnormal Lab Results 08/04/20 08/04/20 08/04/20 05:11 05:14 05:14 WBC 6.7 RBC 3.63 L Hgb 10.1 L Hct 33.2 L MCV 91.5 MCH 27.8 MCHC 30.4 L RDW Std Deviation 52.2 H RDW Coeff of Yeimi 15.5 H Plt Count 296 MPV 9.7 Immature Gran % (Auto) 0.300 Neut % (Auto) 63.0 Lymph % (Auto) 23.6 [place] % (Auto) 9.0 Eos % (Auto) 3.0 Baso % (Auto) 1.1 H Absolute Neuts (auto) 4.2 Absolute Lymphs (auto) 1.57 Nucleated RBC % 0 Sodium 130 L Potassium 3.8 Chloride 103 Carbon Dioxide 18.0 L Anion Gap 9 BUN 20 H Creatinine 0.96 Estim Creat Clear Calc 52.57 Est GFR (MDRD) Af Amer 75 Est GFR (MDRD) Non-Af 62 BUN/Creatinine Ratio 20.9 H Glucose 171 H Calcium 9.1 Urine Color Yellow Urine Clarity Clear Urine pH 6.0 Ur Specific [place] 1.015 Urine Protein 30 H Urine Glucose (UA) Normal Urine Ketones Negative Urine Occult Blood Negative Urine Nitrite Negative Urine Bilirubin Negative Urine Urobilinogen 1 H Ur Leukocyte Esterase 25 H Urine RBC 0 SEEN Urine WBC 5-10 SEEN Ur Squamous Epith Cells 0-5 SEEN Amorphous Sediment 1+ Urine Bacteria 1+ Hyaline Casts 0-5 SEEN Urine Mucus 0 SEEN - Medical Decision Making Patient nontoxic vital signs stable. Renal stone protocol initiated. Is given fluids Zofran Toradol. CT scan negative labs are stable normal creatinine. White count normal. Urine noted mild leukocytes and WBCs. Urine culture sent. She is given dose of Rocephin, with her pain in her flank region, will treat as a complicated UTI. Given dose of oxycodone along with prescription for Keflex and Percocet for which she is tolerated. Outpatient follow-up with signs and symptoms to return. All questions were answered. ED Disposition - Plan for ED Patient: Disposition: Home or Assisted Living Diagnosis: Right flank pain, Complicated UTI (urinary tract infection) Instructions: ED Pyelonephritis, Female (Adult), ED Flank Pain, Uncertain Cause Prescriptions: Docusate Sodium [Colace] 100 mg PO DAILY #20 capsule Cephalexin [Keflex] 500 mg PO Q8H #30 capsule Oxycodone HCl/Acetaminophen [Percocet 5/325] 1 tablet PO Q6H PRN PRN 3 Days #12 tablet PRN Reason: Pain Ondansetron [Zofran Odt] 4 mg PO Q8H PRN PRN #10 tablet PRN Reason: Nausea Referrals: Tom Sherman MD [Primary Care Provider] - 3-5 Days
[2020-08-04 05:54] LABS: Color, Urine Yellow (Yellow); Glucose, Dipstick Normal (Normal); Ketone-Dipstick Negative (Negative); Leukocyte Esterase-Dipstick 25 /ul (Negative); Nitrite-Dipstick Negative (Negative); Occult Blood-Urine Negative /ul (Negative); Protein-Dipstick 30 mg/dl (Negative); Specific Gravity, Urine 1.015 (1.002-1.030); Urine Bilirubin Dipstick Negative (Negative); Urine Clarity Clear (Clear); Urine Urobilinogen 1 mg/dl (Normal)
[2020-08-04 06:26] LABS: Squamous Epithelial Cells - UA 0-5 SEEN /hpf (5-10); White Blood Cells 5-10 SEEN /hpf (0-5)
[2020-08-04 06:27] LABS: Bacteria 1+ /hpf (None Seen); Hyaline Cast 0-5 SEEN /lpf (0-5)
[2020-08-04 06:28] LABS: Amorphous Sediment 1+
[2020-08-04 06:49] VITALS: BP 134/60; PULSE 72; RESP 18; TEMP 37; O2SAT 98
[2020-08-04] MEDS: Ceftriaxone 1 GM/50 ML BAG IV (06:57)
[2020-08-04] MEDS: Ondansetron 4 MG/2 ML Vial IV (07:15)
[2020-08-04] MEDS: oxyCODONE 5 MG Tablet PO (07:22)
[2020-08-04 07:58] VITALS: BP 157/72; PULSE 66; RESP 15; O2SAT 97
== END 2020-08-04 08:00 | disposition home or self-care (01) ==
PROVIDERS: Emergency Provider Emergency Medicine; PCP Internal Medicine
DX: N39.0 Urinary tract infection, site not specified (principal); R10.9 Unspecified abdominal pain; I10 Essential (primary) hypertension; E78.5 Hyperlipidemia, unspecified; Z87.442 Personal history of urinary calculi; Z79.899 Other long term (current) drug therapy; F17.200 Nicotine dependence, unspecified, uncomplicated
CPT/HCPCS: 74176; 80048; 81001; 85025; 87086; 87088; 96361; 96365; 96375; 99285; J7030; A4216; J2405

== ENCOUNTER → 2020-08-07 13:56 | Outpatient (CLI) | payer MEDICARE, SELFPAY ==
[2016-07-13 11:45] VITALS: BMI 31.4
[2020-08-07 13:05] VITALS: BMI 30.1
[2020-08-07 15:15] LABS: Color, Urine Yellow (Yellow); Glucose, Dipstick Normal (Normal); Ketone-Dipstick Negative (Negative); Leukocyte Esterase-Dipstick 25 /ul (Negative); Nitrite-Dipstick Negative (Negative); Occult Blood-Urine 10 /ul (Negative); Protein-Dipstick 15 mg/dl (Negative); Specific Gravity, Urine 1.015 (1.002-1.030); Urine Bilirubin Dipstick Negative (Negative); Urine Clarity Cloudy (Clear); Urine Urobilinogen Normal (Normal)
[2020-08-07 15:33] LABS: Absolute Lymphocyte Count 1.17 X10^3/uL (0.83-4.51); Absolute Neutrophil Count 4.1 X10^3/uL (2.0-7.7); Basophil# 0.07 X10^3/uL; Basophil% 1.2 % (0-1); Eosinophil# 0.21 X10^3/uL; Eosinophils% 3.5 % (0-5); Hematocrit 27.7 % (37-47); Hemoglobin 8.4 g/dL (12.0-15.0); Lymphocyte # 1.17 X10^3/ul (4.0); Lymphocyte % 19.3 % (19-41); Mean Corp Hgb Conc 30.3 g/dL (32-36); Mean Corpuscular Hgb 27.6 pg (27.0-32.0); Mean Corpuscular Volume 91.1 fL (81-99); Mean Platelet Vol. 10.1 fl (6.2-12.0); Monocyte# 0.52 X10^3/uL; Monocyte% 8.6 % (0-10); NRBC Flagged by Analyzer 0 % (0-5); Neutrophil # 4.08 X10^3/uL (2.7-7.7); Neutrophil % 67.1 % (47-70); Platelet Count 283 K/mm3 (150-450); RBC Distribution Width CV 16.3 % (11.6-14.6); RBC Distribution Width SD 53.2 fl (35.1-43.9); Red Blood Count 3.04 M/mm3 (4.2-5.4); White Blood Count 6.1 K/mm3 (4.4-11.0)
== END ==
PROVIDERS: PCP Internal Medicine; Referring Provider Nurse Practitioner Family; Visit Provider Nurse Practitioner Family
DX: R07.9 Chest pain, unspecified (principal); I10 Essential (primary) hypertension; R10.9 Unspecified abdominal pain
CPT/HCPCS: 36415; 81002; 85025; 87086; 87088

== ENCOUNTER 2020-08-08 12:32 | Emergency (ER) | payer MEDICARE, SELFPAY ==
[2016-07-13 11:45] VITALS: BMI 31.4
[2020-08-07 13:05] VITALS: BMI 30.1
[2020-08-08 12:36] VITALS: BP 118/80; PULSE 90; RESP 18; TEMP 37; O2SAT 99; BMI 30.7
[2020-08-08 12:38] VITALS: BP 118/80; PULSE 93; RESP 18; TEMP 37; O2SAT 98
--- NOTE | 2020-08-08 13:27 | ED.VIS.GEN ---
History of Present Illness Informant: Patient Narrative: 64-year-old female states that she was seen here on Thursday and diagnosed with a kidney infection. The culture showed mixed skin organisms. she states that she went to see her doctor yesterday with continued symptoms of lower abdominal pain, dysuria, new diarrhea, nausea and flank pain. She states that they changed her antibiotic to cefepime. She states that they ordered Pyridium but is unavailable. She does not have any nausea medication at home as she ran out. She is worried that she is getting dehydrated. She describes the diarrhea as brown pudding. No reported fever. <Cheko Ortiz - Last Filed: 08/08/20 15:01> <Henry Lovell - Last Filed: 08/08/20 16:13> Chief Complaint: Abd Pain - Past Medical History (1) Atherosclerotic heart disease of [place] coronary artery without angina pectoris Status: Chronic (2) Chronic systolic (congestive) heart failure Status: Chronic (3) Hyperlipemia Status: Chronic (4) Irritable bowel syndrome with diarrhea Status: Chronic (5) Ischemic cardiomyopathy Status: Chronic (6) Major depression Status: Chronic (7) Pancreatitis Status: Chronic (8) Paroxysmal atrial fibrillation Status: Chronic <Cheko Ortiz - Last Filed: 08/08/20 15:01> Past Medical History Surgical History: adenoidectomy, angioplasty - Cardiac stent, tonsillectomy, - - L foot great toe ampuation, Back surgery x 3, L carpal tunnel surgery x 2, R carpal tunnel surgery x 1, R thumb reconstructive surgery. [facility] Smoking Status: Current every day smoker Drugs: None - Family History Maternal Family History: Family History (Last Reviewed 08/07/20 @ 13:05 by Anahi Young) Father Cancer Mother Cancer Family History: Reports: Cancer - mother pancreatic ca Paternal Family History: Family History (Last Reviewed 08/07/20 @ 13:05 by Anahi Young) Father Cancer Mother Cancer Family History: Reports: Cancer - father lung ca., - - Lung cancer <Cheko Ortiz - Last Filed: 08/08/20 15:01> - Family History Maternal Family History: Family History (Last Reviewed 08/07/20 @ 13:05 by Anahi Young) Father Cancer Mother Cancer Paternal Family History: Family History (Last Reviewed 08/07/20 @ 13:05 by Anahi Young) Father Cancer Mother Cancer <Henry Lovell - Last Filed: 08/08/20 16:13> - Allergies and Home Meds Allergies/Adverse Reactions: Allergies indomethacin [From Indocin] Allergy (Verified 08/08/20 12:40) Hives indomethacin sodium [From Indocin] Allergy (Verified 08/08/20 12:40) Hives iodine Allergy (Verified 08/08/20 12:40) Hives propoxyphene napsylate [From Darvocet-N] Allergy (Verified 08/08/20 12:40) Out of control aripiprazole [From Abilify] Adverse Reaction (Verified 08/08/20 12:40) Other drool uncontrollably aspirin Adverse Reaction (Verified 08/08/20 12:40) Upset Stomach when taken in high doses clindamycin Adverse Reaction (Verified 08/08/20 12:40) Nausea metformin Adverse Reaction (Verified 08/08/20 12:40) Other IT CAUSES MY KIDNEYS TO DO WEIRD THINGS sumatriptan [From Imitrex] Adverse Reaction (Verified 08/08/20 12:40) Vomiting Primary Care Physician: Tom Sherman MD [Primary Care Provider] - Review of Systems General: Reports: Malaise. Denies: Chills, Fever, Sweats Eyes: Denies: Visual changes - bilaterally, Diplopia ENT: Denies: Rhinorrhea, Sore throat Cardiovascular: Denies: Chest pain, Palpitations Respiratory: Denies: Dyspnea, Cough, Dyspnea on exertion Gastrointestinal: Reports: Abdominal pain, Nausea, Diarrhea. Denies: Vomiting, Melena, Hematochezia Genitourinary: Reports: Dysuria. Denies: Hematuria, Frequency Musculoskeletal: Reports: Back pain. Denies: Extremity Pain Skin: Denies: Rash, Wounds Neurological: Denies: Headache, Weakness, Numbness <Cheko Ortiz - Last Filed: 08/08/20 15:01> Physical Exam Vital Signs/Narrative: Vital Signs Temp Pulse Resp BP Pulse Ox 08/08/20 12:38 98.6 F 93 18 118/80 98 08/08/20 12:36 98.6 F 90 18 118/80 99 Inital Vital Signs reviewed: Yes General: Well nourished, Well developed, No Acute Distress Head: Normocephalic, Atraumatic Eyes: Perrl, EOMI ENT: Moist mucous membranes, No rhinorrhea Neck: Supple, Nontender Cardiovascular: Regular rate, Regular rhythm, No murmurs Respiratory: No distress, CTA bilaterally, Chest nontender Abdomen: Soft, Nondistended, Normal bowel sounds, Tender - Mild suprapubic tenderness to palpation Back: Nontender, Normal Inspection Extremities: Nontender, No edema Skin: Normal color, No rash Neurological: Alert, Oriented x3, Cranial nerves II-XII grossly intact, Normal Strength, Normal Sensation Psychological: Normal affect, Normal Mood <Cheko Ortiz - Last Filed: 08/08/20 15:01> Vital Signs/Narrative: Vital Signs Temp Pulse Resp BP Pulse Ox 08/08/20 16:08 85 18 107/54 L 98 08/08/20 12:38 98.6 F 93 18 118/80 98 08/08/20 12:36 98.6 F 90 18 118/80 99 <Henry Lovell - Last Filed: 08/08/20 16:13> Diagnostic/Tx/Re-eval Laboratory Last Values Urine Color Yellow (Yellow) 08/08/20 13:30 Urine Clarity Sl. Cloudy (Clear) 08/08/20 13:30 Urine pH 6.0 (5.0 - 8.0) 08/08/20 13:30 Ur Specific [place] 1.015 (1.002-1.030) 08/08/20 13:30 Urine Protein 15 mg/dl (Negative) H 08/08/20 13:30 Urine Glucose (UA) Normal mg/dl (Normal) 08/08/20 13:30 Urine Ketones Negative mg/dl (Negative) 08/08/20 13:30 Urine Occult Blood Negative /ul (Negative) 08/08/20 13:30 Urine Nitrite Negative (Negative) 08/08/20 13:30 Urine Bilirubin Negative mg/dL (Negative) 08/08/20 13:30 Urine Urobilinogen Normal mg/dl (Normal) 08/08/20 13:30 Ur Leukocyte Esterase 25 /ul (Negative) H 08/08/20 13:30 Urine RBC 0 SEEN /hpf (0-5) 08/08/20 13:30 Urine WBC 0-5 SEEN /hpf (0-5) 08/08/20 13:30 Ur Squamous Epith Cells 0-5 SEEN /hpf (5-10) 08/08/20 13:30 Urine Bacteria 0 SEEN /hpf (None Seen) 08/08/20 13:30 Urine Mucus 0 SEEN /hpf (<or=2+) 08/08/20 13:30 <Cheko Ortiz - Last Filed: 08/08/20 15:01> Clinical Impression(s) from Imaging Studies Abdomen/Pelvis CT 08/08/20 14:56 IMPRESSION: Stable examination. No acute abnormality is seen. Electronically Signed: Daljit Jordan MD at 15:50 EDT , Service support , Laboratory Data 08/08/20 08/08/20 08/08/20 13:30 14:50 14:50 WBC 6.6 RBC 3.09 L Hgb 8.5 L Hct 27.1 L MCV 87.7 MCH 27.5 MCHC 31.4 L RDW Std Deviation 51.8 H RDW Coeff of Yeimi 16.3 H Plt Count 266 MPV 9.0 Immature Gran % (Auto) 0.200 Neut % (Auto) 66.4 Lymph % (Auto) 20.3 [place]oll[place] % (Auto) 8.8 Eos % (Auto) 3.5 Baso % (Auto) 0.8 Absolute Neuts (auto) 4.4 Absolute Lymphs (auto) 1.33 Nucleated RBC % 0 Sodium 132 L Potassium 4.2 Chloride 108 H Carbon Dioxide 21.0 Anion Gap 3 L BUN 15 Creatinine 0.94 Estim Creat Clear Calc 53.69 Est GFR (MDRD) Af Amer 77 Est GFR (MDRD) Non-Af 64 BUN/Creatinine Ratio 16.0 Glucose 126 H Calcium 8.4 L Total Bilirubin 0.30 AST 39 H ALT 22 Alkaline Phosphatase 87 Total Protein 5.6 L Albumin 2.4 L Globulin 3.2 Albumin/Globulin Ratio 0.8 L Lipase 49 L Urine Color Yellow Urine Clarity Sl. Cloudy Urine pH 6.0 Ur Specific [place] 1.015 Urine Protein 15 H Urine Glucose (UA) Normal Urine Ketones Negative Urine Occult Blood Negative Urine Nitrite Negative Urine Bilirubin Negative Urine Urobilinogen Normal Ur Leukocyte Esterase 25 H Urine RBC 0 SEEN Urine WBC 0-5 SEEN Ur Squamous Epith Cells 0-5 SEEN Urine Bacteria 0 SEEN Urine Mucus 0 SEEN - Medical Decision Making Patient appears well and nontoxic. Signed out to me by previous ED physician. On reevaluation at 1600 patient is feeling improved. Benign abdominal exam. Lab work shows chronic changes without acute abnormalities. CT of the abdomen pelvis shows no acute process. Patient has Bentyl, Zofran, Tylenol, antibiotics for home already. 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 Jiménez. Stable at time of discharge. Impression: 1. Abdominal pain 2. Nausea and vomiting 3. Diarrhea <Henry Lovell - Last Filed: 08/08/20 16:13> ED Disposition <Cheko Ortiz - Last Filed: 08/08/20 15:01> <Henry Lovell - Last Filed: 08/08/20 16:13> - Plan for ED Patient: Disposition: Home or Assisted Living Instructions: ED Abdominal Pain Unkn Cause Fem Prescriptions: proMETHazine tablet [Phenergan] 25 mg PO Q6H PRN PRN #10 tab PRN Reason: Nausea Prescription Printed Referrals: Tom Sherman MD [Primary Care Provider] - 2 Days Aureliano Jiménez MD [NON-STAFF] - 5-7 Days
[2020-08-08 13:52] LABS: Bacteria 0 SEEN /hpf (None Seen); Mucous, Urine 0 SEEN /hpf (<or=2+); Red Blood Cells-Urine 0 SEEN /hpf (0-5)
[2020-08-08 13:56] LABS: Color, Urine Yellow (Yellow); Glucose, Dipstick Normal (Normal); Ketone-Dipstick Negative (Negative); Leukocyte Esterase-Dipstick 25 /ul (Negative); Nitrite-Dipstick Negative (Negative); Occult Blood-Urine Negative /ul (Negative); Protein-Dipstick 15 mg/dl (Negative); Specific Gravity, Urine 1.015 (1.002-1.030); Urine Bilirubin Dipstick Negative (Negative); Urine Clarity Sl. Cloudy (Clear); Urine Urobilinogen Normal (Normal)
[2020-08-08 14:09] LABS: Squamous Epithelial Cells - UA 0-5 SEEN /hpf (5-10); White Blood Cells 0-5 SEEN /hpf (0-5)
[2020-08-08] MEDS: Morphine 4 MG/ML Syringe IV (14:56)
[2020-08-08] MEDS: 0.9% Normal Saline 1,000 ML 1000 ML IV (14:56)
[2020-08-08] MEDS: Ondansetron 4 MG/2 ML Vial IV (14:56)
--- NOTE | 2020-08-08 14:56 | CT_ITS ---
STUDY: CT ABDOMEN AND PELVIS WITHOUT CONTRAST REASON FOR EXAM: Female, 64 years old. Abdominal pain and diarrhea. RADIATION DOSAGE (If Supplied By Facility): CTDIvol = ( 12.00 ) mGy, DLP = ( 557.42 ) mGycm TECHNIQUE: Transaxial images were obtained from the dome of the diaphragm to the symphysis pubis without oral contrast, and without intravenous contrast. Sagittal and coronal images were reconstructed. Individualized dose optimization techniques were used for this CT. COMPARISON: Comparison is made with prior study 08/04/2020. FINDINGS: The visualized lung bases are unremarkable. Coronary artery calcification. Normal liver. Normal gallbladder and extrahepatic biliary system. Normal spleen. Normal pancreas. Normal bilateral adrenal glands. Normal right kidney. Normal left kidney. Normal visualized stomach. Normal small intestine. Normal colon. The appendix is visualized and appears normal. There is diffuse atherosclerotic calcification of the abdominal aorta, without a demonstrated aneurysm. Normal inferior vena cava. Normal retroperitoneum. Normal urinary bladder. Normal abdominal wall. There are diffuse degenerative changes of the visualized lumbar spine. CT/Abdomen/Pelvis without Cont IMPRESSION: Stable examination. No acute abnormality is seen. Electronically Signed: Daljit Jordan MD at 15:50 EDT , Service support ,
[2020-08-08 15:00] LABS: Absolute Lymphocyte Count 1.33 X10^3/uL (0.83-4.51); Absolute Neutrophil Count 4.4 X10^3/uL (2.0-7.7); Basophil# 0.05 X10^3/uL; Basophil% 0.8 % (0-1); Eosinophil# 0.23 X10^3/uL; Eosinophils% 3.5 % (0-5); Hematocrit 27.1 % (37-47); Hemoglobin 8.5 g/dL (12.0-15.0); Lymphocyte # 1.33 X10^3/ul (0.83-4.51); Lymphocyte % 20.3 % (19-41); Mean Corp Hgb Conc 31.4 g/dL (32-36); Mean Corpuscular Hgb 27.5 pg (27.0-32.0); Mean Corpuscular Volume 87.7 fL (81-99); Monocyte# 0.58 X10^3/uL; Monocyte% 8.8 % (0-10); NRBC Flagged by Analyzer 0 % (0-5); Neutrophil # 4.36 X10^3/uL (2.7-7.7); Neutrophil % 66.4 % (47-70); Platelet Count 266 K/mm3 (150-450); RBC Distribution Width CV 16.3 % (11.6-14.6); RBC Distribution Width SD 51.8 fl (35.1-43.9); Red Blood Count 3.09 M/mm3 (4.2-5.4); White Blood Count 6.6 K/mm3 (4.4-11.0)
[2020-08-08 15:15] LABS: ALB/GLOB Ratio 0.8 RATIO (0.9-2.4); AST(SGOT) 39 U/L (15-37); Alanine Aminotransfer ALT/SGPT 22 U/L (13-56); Albumin, Serum 2.4 g/dL (3.2-5.0); Alkaline Phosphatase 87 U/L (45-117); Anion Gap 3 (5-15); BUN 15 mg/dL (7-18); Calcium,Total 8.4 mg/dL (8.5-10.1); Chloride 108 mmol/L (98-107); Creatinine, Serum 0.94 mg/dL (0.55-1.02); EST Glomerular Filtration Rate 64 mL/min (>60); Est Glom Filt Rate - Afr Amer 77 mL/min (>60); Estimated Creatinine Clearance 53.69 ml/min; Globulin 3.2 g/dL (2.2-4.2); Glucose 126 mg/dL (74-106); Lipase 49 U/L (73-393); Potassium 4.2 mmol/L (3.5-5.1); Protein, Total 5.6 g/dL (6.4-8.2); Sodium Level 132 mmol/L (136-145)
[2020-08-08 16:08] VITALS: BP 107/54; PULSE 85; RESP 18; O2SAT 98
[2020-08-08 16:23] VITALS: BP 139/74; PULSE 82; RESP 15; TEMP 36.1; O2SAT 97
== END 2020-08-08 16:24 | disposition home or self-care (01) ==
PROVIDERS: Emergency Provider Emergency Medicine; PCP Internal Medicine
DX: R10.30 Lower abdominal pain, unspecified (principal); R11.2 Nausea with vomiting, unspecified; I25.10 Atherosclerotic heart disease of native coronary artery without angina pectoris; I50.22 Chronic systolic (congestive) heart failure; I48.0 Paroxysmal atrial fibrillation; I25.5 Ischemic cardiomyopathy; E78.5 Hyperlipidemia, unspecified; K58.9 Irritable bowel syndrome, unspecified; F17.200 Nicotine dependence, unspecified, uncomplicated; Z79.82 Long term (current) use of aspirin; Z79.02 Long term (current) use of 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/antiplatelets; Z79.899 Other long term (current) drug therapy
CPT/HCPCS: 74176; 80053; 81001; 83690; 85025; 96361; 96374; 96375; 99285; J7030; A4216; J2405

== ENCOUNTER 2020-08-14 18:14 | Observation (INO) | payer MEDICARE, MEDICAID, SELFPAY ==
[2016-07-13 11:45] VITALS: BMI 31.4
[2020-08-14] VITALS (7 sets, daily range): BP systolic 108–151; BP diastolic 66–76; PULSE 95–104; RESP 10–20; TEMP 35.6–37; O2SAT 95–99; BMI 29.4; BMI 30.7; BMI 28.0
--- NOTE | 2020-08-14 18:21 | EKG12_ITS ---
Test Reason : CP Blood Pressure : / mmHG Vent. Rate : 096 BPM Atrial Rate : 096 BPM P-R Int : 168 ms QRS Dur : 090 ms QT Int : 362 ms P-R-T Axes : 089 -45 084 degrees QTc Int : 457 ms Normal sinus rhythm Left axis deviation Low voltage QRS Inferior infarct , age undetermined Abnormal ECG Confirmed by JACQUELINE WITT, KASSANDRA ([id number]), food expeditor YUNG MUNGUIA ([id number]) on 08/17/2020 8:07:58 AM Referred By: SONG Confirmed By:LILLY PHILLIPS MD
--- NOTE | 2020-08-14 18:22 | ED.DCSUM_ITS ---
History of Present Illness Chief Complaint: Chest Pain Informant: Patient Onset: Today, Hours - Awakened from sleep at 1700 with retrosternal chest tightness throbbing associated with diaphoresis, shortness of breath and radiation down her left upper extremity. Activity at onset: Sleep Timing: Continuous Quality: Heaviness, Pressure, - - And throbbing Location: Substernal Current Severity: Moderate Maximum Severity: Severe Worsened By: Nothing Relieved By: Nothing Associated Symptoms: Nausea, Diaphoresis, Dyspnea, - - Radiation left upper extremity. Negative for: Vomiting, Cough, Fever, Lightheadedness, Acid Reflux, Palpitations Narrative: Patient is a 64-year-old woman with multiple medical problems who presents with retrosternal chest discomfort with diaphoresis and dyspnea the rate on her left arm and awoke her from sleep at 1700. She took a nitro at home with no relief. She states that tablet did not burn under her tongue. She was seen by Fatuma Butler's nurse practitioner and scheduled for an outpatient stress test. She denies fever, chills night sweats. She denies headache, visual, ocular auditory symptoms. She denies rhinorrhea, congestion or postnasal drainage. Denies sore throat. She denies cough. She denies orthopnea or PND. She denies hematemesis, melena medic easier. She recently was treated for pyelonephritis. She still complains of slight frequency. She also was recently admitted for atrial fibrillation with RVR. There is no history of trauma. She denies history of hiatal hernia, peptic ulcer disease or reflux. She denies intolerance to greasy or fried foods. There is no known history of abdominal aortic aneurysm. Prior Similar Symptoms: Yes Recent Illness/Hospitalization: Yes - Was seen by cardiology this morning CVD Risk Factors: Hypertension, Diabetes, Hypercholesterolemia, Smoking PE Risk Factors: Negative for: Recent Travel/Surgery, Recenet Immobilization, Prior DVT or PE, Cancer, OCP + Smoking + >/=35 TAD Risk Factors: Hypertension, Family History. Negative for: Marfan's Syndrome - Past Medical History (1) Atherosclerotic heart disease of [place] coronary artery without angina pectoris Status: Chronic (2) Chronic systolic (congestive) heart failure Status: Chronic (3) Essential (primary) hypertension Status: Chronic (4) History of ST elevation myocardial infarction (STEMI) Status: Chronic (5) Hyperlipemia Status: Chronic (6) Irritable bowel syndrome with diarrhea Status: Chronic (7) Ischemic cardiomyopathy Status: Chronic (8) Major depression Status: Chronic (9) Nicotine abuse Status: Chronic (10) Pancreatitis Status: Chronic (11) Paroxysmal atrial fibrillation Status: Chronic Past Medical History - Allergies and Home Meds Allergies/Adverse Reactions: Allergies indomethacin [From Indocin] Allergy (Verified 08/14/20 09:05) Hives indomethacin sodium [From Indocin] Allergy (Verified 08/14/20 09:05) Hives iodine Allergy (Verified 08/14/20 09:05) Hives propoxyphene napsylate [From Darvocet-N] Allergy (Verified 08/14/20 09:05) Out of control aripiprazole [From Abilify] Adverse Reaction (Verified 08/14/20 09:05) Other drool uncontrollably aspirin Adverse Reaction (Verified 08/14/20 09:05) Upset Stomach when taken in high doses clindamycin Adverse Reaction (Verified 08/14/20 09:05) Nausea metformin Adverse Reaction (Verified 08/14/20 09:05) Other IT CAUSES MY KIDNEYS TO DO WEIRD THINGS sumatriptan [From Imitrex] Adverse Reaction (Verified 08/14/20 09:05) Vomiting Primary Care Physician: Tom Sherman MD [Primary Care Provider] - Prior records reviewed: Yes Surgical History: adenoidectomy, angioplasty - Cardiac stent, tonsillectomy, - - L foot great toe ampuation, Back surgery x 3, L carpal tunnel surgery x 2, R carpal tunnel surgery x 1, R thumb reconstructive surgery. cervical spinal surgery february 27 at [facility]. Lives: Alone Smoking Status: Current every day smoker Alcohol: None Drugs: None - Family History Maternal Family History: Family History (Last Reviewed 08/14/20 @ 09:30 by Fatuma LOPEZ, PA) Father Cancer Mother Cancer Family History: Reports: Cancer - mother pancreatic ca Paternal Family History: Family History (Last Reviewed 08/14/20 @ 09:30 by Fatuma LOPEZ, PA) Father Cancer Mother Cancer Family History: Reports: Cancer - father lung ca., - - Lung cancer Review of Systems General: Denies: Chills, Fever, Malaise, Subjective, Sweats Eyes: Denies: Visual changes - bilaterally, Blurred Vision - bilaterally ENT: Denies: Bilateral ear pain, Rhinorrhea, Sore throat Cardiovascular: Reports: Chest pain. Denies: Palpitations, Heart racing, -, - Respiratory: Reports: Dyspnea. Denies: Cough, Sputum, Dyspnea on exertion, Orthopnea, Paroxysmal nocturnal dyspnea, -, - Gastrointestinal: Denies: Abdominal pain, Nausea, Vomiting, Diarrhea, Melena, Hematochezia Genitourinary: Reports: Frequency. Denies: Dysuria, Hematuria, -, - Musculoskeletal: Reports: Extremity Pain - Left upper extremity. Denies: Back pain, Swelling Skin: Denies: Rash, Wounds Neurological: Denies: Headache, Weakness Endocrine: Denies: Polyuria, Polydipsia Hematologic: Denies: Easy bruising, Easy bleeding Physical Exam Vital Signs/Narrative: Vital Signs Temp Pulse Resp BP Pulse Ox 08/14/20 18:14 96.1 F L 101 H 20 H 146/76 H 96 Inital Vital Signs reviewed: Yes General: Well nourished, Well developed, No Acute Distress, Acute Distress Head: Normocephalic, Atraumatic Eyes: Perrl, EOMI. Negative for: Pale conjunctiva, Scleral icterus ENT: Moist mucous membranes, No rhinorrhea Neck: Supple, Nontender, No lymphadenopathy, No JVD Cardiovascular: Regular rate, Regular rhythm, No murmurs, Normal S1, Normal S2 Respiratory: No distress, Chest nontender, Rales - Bilaterally at the bases Abdomen: Soft, Nontender, Nondistended, Normal bowel sounds. Negative for: Hepatomegaly, Splenomegaly, Mass, Pulsatile mass Rectal: Deferred Back: Nontender, Normal Inspection Extremities: Nontender Skin: Normal color, No rash, No Trauma. Negative for: Cyanosis, Diaphoresis, Jaundice, Pallor Neurological: Alert, Oriented x3, Cranial nerves II-XII grossly intact, Normal Strength, Normal Sensation Psychological: Depressed Diagnostic/Tx/Re-eval Impressions Chest X-Ray 08/14/20 18:56 IMPRESSION: No acute cardiopulmonary pathology Electronically Signed: Brant Albarran MD at 19:33 EDT , Service support , 08/14/20 18:56 Chest 1 View (Portable) [RAD] Stat Laboratory Results 08/14/20 08/14/20 19:00 19:00 WBC 6.5 RBC 3.26 L Hgb 9.3 L Hct 29.7 L MCV 91.1 MCH 28.5 MCHC 31.3 L RDW Std Deviation 58.6 H RDW Coeff of Yeimi 18.0 H Plt Count 307 MPV 8.5 Immature Gran % (Auto) 0.300 Neut % (Auto) 64.6 Lymph % (Auto) 21.1 [place] % (Auto) 11.2 H Eos % (Auto) 1.9 Baso % (Auto) 0.9 Absolute Neuts (auto) 4.2 Absolute Lymphs (auto) 1.36 Nucleated RBC % 0 Sodium 138 Potassium 3.6 Chloride 107 Carbon Dioxide 23.0 Anion Gap 8 BUN 16 Creatinine 0.79 Estim Creat Clear Calc 63.88 Est GFR (MDRD) Af Amer 93 Est GFR (MDRD) Non-Af 77 BUN/Creatinine Ratio 20.2 H Glucose 60 L Calcium 9.2 Troponin I < 0.015 Hemoglobin is 9.3 with normal indices. Basic metabolic panel is unremarkable. First troponin is normal. - EKG Initial EKG Interpretation: Sinus Rhythm - This rhythm with ventricular 96. MI intervals 160 ms. QS duration 90 ms. QT duration 362 ms. Sanders to the left. There is evidence of low voltage. Decreased anterior forces noted as well. Treatment: Aspirin - Event prehospital, NTG SL LOVE Risk: Age >/= 65, H/O CAD, ASA within 7 days Score: 3 - Medical Decision Making Patient presents with chest discomfort similar to prior anginal event/IA. Will obtain EKG, chest x-ray appropriate blood work. This may represent cardiac versus noncardiac etiology. In light of her past history and the fact that her hydraulic and plumbing installer was scheduling an outpatient stress test would recommend assignment to PCU. ED Disposition - Plan for ED Patient: Disposition: Acute Care Hospital [facility] Diagnosis: Anemia, Chest pain Referrals: Tom Sherman MD [Primary Care Provider] -
--- NOTE | 2020-08-14 18:56 | RAD_ITS ---
STUDY: X-RAY CHEST REASON FOR EXAM: Female, 64 years old. chest pain TECHNIQUE: AP portable COMPARISON: 07/28/2020 FINDINGS: The lungs are clear and expanded. There is no demonstrated pleural abnormality. Normal size heart. Normal mediastinum and sara. Normal visualized pulmonary arteries. Normal visualized aortic arch and descending thoracic aorta. Dorsal spine and shoulders demonstrate degenerative change Normal visualized ribs, clavicles, and shoulders. Postsurgical changes of the cervical spine There is no demonstrated abnormality of the visualized soft tissue structures of the upper abdomen. RAD/Chest 1 View (Portable) IMPRESSION: No acute cardiopulmonary pathology Electronically Signed: Brant Albarran MD at 19:33 EDT , Service support ,
[2020-08-14 19:10] LABS: Absolute Lymphocyte Count 1.36 X10^3/uL (0.83-4.51); Absolute Neutrophil Count 4.2 X10^3/uL (2.0-7.7); Basophil# 0.06 X10^3/uL; Basophil% 0.9 % (0-1); Eosinophil# 0.12 X10^3/uL; Eosinophils% 1.9 % (0-5); Hematocrit 29.7 % (37-47); Hemoglobin 9.3 g/dL (12.0-15.0); Lymphocyte # 1.36 X10^3/ul (0.83-4.51); Lymphocyte % 21.1 % (19-41); Mean Corp Hgb Conc 31.3 g/dL (32-36); Mean Corpuscular Hgb 28.5 pg (27.0-32.0); Mean Corpuscular Volume 91.1 fL (81-99); Mean Platelet Vol. 8.5 fl (6.2-12.0); Monocyte# 0.72 X10^3/uL; Monocyte% 11.2 % (0-10); NRBC Flagged by Analyzer 0 % (0-5); Neutrophil # 4.17 X10^3/uL (2.7-7.7); Neutrophil % 64.6 % (47-70); Platelet Count 307 K/mm3 (150-450); RBC Distribution Width SD 58.6 fl (35.1-43.9); Red Blood Count 3.26 M/mm3 (4.2-5.4); White Blood Count 6.5 K/mm3 (4.4-11.0)
[2020-08-14] MEDS: Ondansetron 4 MG/2 ML Vial IV ×2 (19:15→23:56)
[2020-08-14 19:29] LABS: Anion Gap 8 (5-15); BUN 16 mg/dL (7-18); BUN/Creat Ratio 20.2 RATIO (10-20); Calcium,Total 9.2 mg/dL (8.5-10.1); Chloride 107 mmol/L (98-107); Creatinine, Serum 0.79 mg/dL (0.55-1.02); EST Glomerular Filtration Rate 77 mL/min (>60); Est Glom Filt Rate - Afr Amer 93 mL/min (>60); Estimated Creatinine Clearance 63.88 ml/min; Glucose 60 mg/dL (74-106); Potassium 3.6 mmol/L (3.5-5.1); Sodium Level 138 mmol/L (136-145)
--- NOTE | 2020-08-14 19:53 | PCM.HP.STD ---
Problem List (1) Chest pain Status: Acute Qualifiers: Chest pain type: unspecified Qualified Code(s): R07.9 - Chest pain, unspecified (2) Anemia Status: Chronic Qualifiers: Anemia type: unspecified type Qualified Code(s): D64.9 - Anemia, unspecified (3) Hyperlipemia Status: Chronic Qualifiers: Hyperlipidemia type: pure hypercholesterolemia Qualified Code(s): E78.00 - Pure hypercholesterolemia, unspecified; E78.0 - Pure hypercholesterolemia (4) Major depression Status: Chronic Qualifiers: Major depression recurrence: unspecified whether recurrent Active/Remission status: remission status unspecified Qualified Code(s): F32.9 - Major depressive disorder, single episode, unspecified (5) Atherosclerotic heart disease of [place] coronary artery without angina pectoris Status: Chronic Qualifiers: [place] vs. transplanted heart: [place] heart Qualified Code(s): I25.10 - Atherosclerotic heart disease of [place] coronary artery without angina pectoris (6) History of coronary artery stent placement Status: Chronic Comment: PCI-aspiration [id number]-LSI-[id number] LAD 3.0 mm x 18 mm Resolute Stent and POBA-Mid D2 04/08/16 (7) Ischemic cardiomyopathy Status: Chronic (8) Chronic systolic (congestive) heart failure Status: Chronic (9) Essential (primary) hypertension Status: Chronic (10) Paroxysmal atrial fibrillation Status: Chronic (11) Nicotine abuse Status: Chronic History of Present Illness Date of Admission: 08/14/20 Chief Complaint: Chest pain The patient is a 64 y/o F w/ PMHx: Chronic normocytic anemia, Obesity, Chronic COPD, HTN, HLD, Hx mural thrombus w/ Acute UT STEMI/CAD, Takotsubo syndrome/Ischemic Cardiomyopathy, IBS with diarrhea, Diabetes mellitus type II, Anxiety and Depression, Multiple Sclerosis, BRYAN, PAF, RLS, Chronic back pain/DDD who presents to the [facility] ED on 08/14/20 with history of being suddenly awoken at approximately 1700 on day of ED presentation from a nap with significant retrosternal chest discomfort described as a heaviness/pressure with associated shortness of breath as well as nausea with radiation to left upper extremity and shoulder rated 9 out of 10 in severity at that time to ED evaluation. Patient had on day prior to ED presentation been evaluated in the cardiology office with planned outpatient stress testing at that time as she had been inpatient for similar presentation but did not want to remain for a stress test as it was the weekend. ED evaluation with chest discomfort currently resolved to 0 out of 10. Work-up in the ED included T 96.1, heart rate 101, BP 146/76, respiratory rate 20, 96% on room air, CBC with WC 6.5, hemoglobin 9.3, platelet 3 7 without marked shift, BMP with glucose 60, troponin less than 0.015, chest x-ray with no acute cardiopulmonary finding, EKG was sinus rhythm with no acute evidence of ischemia. In the ED patient ministered normal saline, Zofran, nitroglycerin, morphine. Past Medical History Past Medical History (Chronic Problems): Chronic Problems (Last Reviewed 08/14/20 @ 09:30 by Fatuma LOPEZ, PA) Anemia (Chronic) Irritable bowel syndrome with diarrhea (Chronic) Hyperlipemia (Chronic) Pancreatitis (Chronic) Major depression (Chronic) Atherosclerotic heart disease of [place] coronary artery without angina pectoris (Chronic) History of ST elevation myocardial infarction (STEMI) (Chronic) Old anterior wall myocardial infarction (Chronic 04/08/16) History of coronary artery stent placement (Chronic 04/08/16) PCI-aspiration [id number] LAD 3.0 mm x 18 mm Resolute Stent and POBA-Mid D2 04/08/16 Ischemic cardiomyopathy (Chronic) Chronic systolic (congestive) heart failure (Chronic) Essential (primary) hypertension (Chronic) Typical atrial flutter (Chronic) Paroxysmal atrial fibrillation (Chronic) Nicotine abuse (Chronic) Medical History: Medical History (Last Reviewed 08/14/20 @ 09:30 by Fatuma LOPEZ, PA) Major depression (Chronic) F32.9 Atherosclerotic heart disease of [place] coronary artery without angina pectoris (Chronic) I25.[address] elevation myocardial infarction (STEMI) (Chronic) I25.2 Ischemic cardiomyopathy (Chronic) I25.5 Chronic systolic (congestive) heart failure (Chronic) I50.22 Essential (primary) hypertension (Chronic) I10 Paroxysmal atrial fibrillation (Chronic) I48.0 Nicotine abuse (Chronic) Z72.0 Anxiety F41.9 COPD (chronic obstructive pulmonary disease) J44.9 Cervical spinal stenosis M48.02 Diabetes mellitus type 2 in nonobese E11.9 IBS (irritable bowel syndrome) K58.9 Left ventricular hypertrophy I51.7 Multiple sclerosis G35 BRYAN (obstructive sleep apnea) G47.33 RLS (restless legs syndrome) G25.81 Suicidal ideation R45.851 Apical mural thrombus with acute UT I21.29 Takotsubo syndrome I51.81 Irritable bowel syndrome with diarrhea (Inactive) K58.0 Vitamin B12 deficiency (Inactive) E53.8 Allergies indomethacin [From Indocin] Allergy (Verified 08/14/20 09:05) Hives indomethacin sodium [From Indocin] Allergy (Verified 08/14/20 09:05) Hives iodine Allergy (Verified 08/14/20 09:05) Hives propoxyphene napsylate [From Darvocet-N] Allergy (Verified 08/14/20 09:05) Out of control aripiprazole [From Abilify] Adverse Reaction (Verified 08/14/20 09:05) Other drool uncontrollably aspirin Adverse Reaction (Verified 08/14/20 09:05) Upset Stomach when taken in high doses clindamycin Adverse Reaction (Verified 08/14/20 09:05) Nausea metformin Adverse Reaction (Verified 08/14/20 09:05) Other IT CAUSES MY KIDNEYS TO DO WEIRD THINGS sumatriptan [From Imitrex] Adverse Reaction (Verified 08/14/20 09:05) Vomiting Home Medications: Ambulatory Orders Medication Instructions Recorded Aspirin E.C. [Ecotrin] 81 mg PO DAILY@0800 10/21/16 Glimepiride [Amaryl] 4 mg PO BID 10/21/16 Potassium Chloride Oral Tablet 20 meq PO DAILY 10/06/17 [K-Dur] Albuterol Inhaler [Ventolin Hfa] 2 puff INHALATION Q6H PRN PRN 10/23/17 lisinopril 2.5 mg tablet 2.5 mg PO DAILY #30 tablet 08/16/19 ropinirole 0.5 mg tablet 1 mg PO QHS tablet 08/21/19 nitroglycerin 0.4 mg sublingual 0.4 mg SL ONCE #25 tablet 08/23/19 tablet Estrogen,Con/M-Progest Acet 1 tablet PO DAILY 09/20/19 [Prempro 0.625-2.5 MG Tablet] Teriflunomide [Aubagio] 14 mg PO DAILY 09/20/19 Modafinil [Provigil] 200 mg PO DAILY 12/12/19 Pioglitazone HCl 30 mg PO DAILY 12/25/19 Ropinirole HCl 1 mg PO LUNCH 12/25/19 Hydroxyzine HCl 50 mg PO 4X/DAY 12/26/19 dicyclomine 20 mg tablet 20 mg PO BID PRN #180 tablet 03/15/20 rosuvastatin 20 mg tablet 20 mg PO QHS #30 tablet 04/16/20 mirabegron 25 mg tablet,extended 25 mg PO Q24H #60 tablet 05/11/20 release 24 hr clopidogrel 75 mg tablet 75 mg PO DAILY #90 tablet 05/14/20 trazodone 50 mg tablet 50 mg PO QHS PRN #30 tablet 06/26/20 pantoprazole 40 mg tablet,delayed 40 mg PO DAILY #30 tablet 07/25/20 release Acetaminophen 1,000 mg PO TID PRN #1 tablet 07/29/20 Ibuprofen 600 mg PO 4X/DAY PRN #1 tablet 07/29/20 duloxetine 30 mg capsule,delayed 30 mg PO BID #60 cap 08/02/20 release Ondansetron [Zofran Odt] 4 mg PO Q8H PRN PRN #10 tablet 08/04/20 isosorbide mononitrate 30 mg 30 mg PO DAILY #30 tablet 08/06/20 tablet,extended release 24 hr cefixime 400 mg capsule 400 mg PO DAILY 14 Days #14 cap 08/07/20 phenazopyridine 100 mg tablet 100 mg PO TID PRN 0 Days #6 tablet 08/07/20 sucralfate 1 gram tablet 1 gm PO 4X/DAY #120 tablet 08/07/20 proMETHazine tablet [Phenergan] 25 mg PO Q6H PRN PRN #10 tab 08/08/20 blood sugar diagnostic See Rx Instructions .ROUTE 08/10/20 .MEDSUPPLY #100 each blood-glucose meter See Rx Instructions .ROUTE 08/10/20 .MEDSUPPLY #1 each ondansetron HCl 8 mg tablet 8 mg PO Q8H PRN PRN #20 tab 08/10/20 Carvedilol [Coreg (Beta Marielle)] 6.25 mg PO BID 08/14/20 Surgical History: Surgical History (Last Reviewed 08/14/20 @ 09:30 by Fatuma LOPEZ, PA) History of coronary artery stent placement (Chronic) Onset Date: 04/08/16 Z95.5 PCI-aspiration [id number]-[id number] LAD 3.0 mm x 18 mm Resolute Stent and POBA-Mid D2 04/08/16 History of loop recorder Onset Date: 06/2014 Z98.890 History of amputation of left great toe Z89.412 staph infection History of back surgery Z98.890 History of cervical discectomy Z98.890 History of left knee surgery Z98.890 torn meniscus repair x 2 History of tonsillectomy and adenoidectomy Z98.890 Surgical History: adenoidectomy, angioplasty - Cardiac stent, tonsillectomy, - - L foot great toe ampuation, Back surgery x 3, L carpal tunnel surgery x 2, R carpal tunnel surgery x 1, R thumb reconstructive surgery. cervical spinal surgery february 27 at [facility]. 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 Lives: Alone Smoking Status: Current every day smoker - Patient with ongoing 1/2 ppd cigarette tobacco usage/cigar tobacco use. Tobacco Use: Cigarettes, Cigars Alcohol: None Drugs: None - *Family History Maternal Family History: Family History (Last Reviewed 08/14/20 @ 09:30 by Fatuma LOPEZ, PA) Father Cancer Mother Cancer History Items: Cancer - Pancreatic cancer. Paternal Family History: Family History (Last Reviewed 08/14/20 @ 09:30 by Fatuma LOPEZ, PA) Father Cancer Mother Cancer History Items: Cancer - Lung cancer. Review of Systems Constitutional: Reports: Weakness, Fatigue. Denies: Anorexia, Chills, Fever, Malaise, Weight Change HEENT: Denies: Head Aches, Sinus Congestion, Sinus Drainage Cardiovascular: Reports: Chest Pain, Chest Pressure, Heaviness. Denies: Chest Tightness, Light Headedness, Orthopnea, Palpitations, Syncope Respiratory: Reports: Shortness of Breath. Denies: Cough, Shortness of breath at rest, Shortness of breath upon exertion, Sputum production Gastrointestinal: Reports: Nausea. Denies: Abdominal Pain, Vomiting Genitourinary: Denies: Dysuria Musculoskeletal: Reports: Back Pain, Joint Pain. Denies: Joint Tenderness Skin: Denies: Rash, Wounds Neurological: Denies: Numbness, Tingling, Focal weakness Psychiatric: Reports: Anxiety, Depression. Denies: Homicidal Ideations, Suicidal Ideations Hematologic/ Lymphatic: Reports: Anemia, Easy Bruising, Easy Bleeding VTE Information - Inpt Only VTE Present on Admission: No VTE Mechan Device Prophylaxis: SCD's VTE Pharm Prophylaxis ordered?: Yes Patient Problems: Active and Suspected Problems (Last Reviewed 08/14/20 @ 09:30 by Fatuma Antoine PA, PA) Chest pain (Acute) Subjective: Patient seated upright in the ED bed, eating, notes chest pain resolved currently. Objective: Physical Examination: General: awake, alert, oriented x 3 and cooperative, seated upright in ED bed, no acute distress, eating, notes chest pain current resolved. Skin: normal color, turgor, no icterus, cyanosis except occasional picked region or abrasion. HEENT: AT/NC, EOMI, PERRLA, MMM, no carotid bruits or JVD noted. Lungs: Diminished breath sounds, greater bases, appropriate effort, no evidence of any distress, no rales, ronchi or wheezing. Heart: Regular rate and rhythm; no gallop, rub audible. Abdomen: soft, NTTP, ND, normal BS, no HSM. Extremities: no cyanosis, clubbing, or edema. Neurological: patient awake, alert, oriented as noted; cognitive function intact; pupils equally reactive to light and accomodation; cranial nerves II-XII grossly normal, moving all 4 extremities, no focal deficits, strength moderately global decrease secondary to acute presentation complaints. Psychiatric: affect appears mildly fatigued otherwise normal, no acute evidence of depressive or anxiety feelings. - Physical Exam Vitals/I&O's: Vital Signs Temp Pulse Resp BP Pulse Ox 96.1 F L 95 10 L 147/67 H 95 08/14/20 18:14 08/14/20 19:34 08/14/20 19:34 08/14/20 19:34 08/14/20 19:34 Oxygen Delivery Method Room Air Weight: 184 lb 15.485 oz Body Mass Index (BMI) 30.7 Finger Stick Blood Glucose 151 Laboratory Results 08/14/20 19:00: WBC 6.5, RBC 3.26 L, Hgb 9.3 L, Hct 29.7 L, MCV 91.1, MCH 28.5, MCHC 31.3 L, RDW Std Deviation 58.6 H, RDW Coeff of [place] 18.0 H, Plt Count 307, MPV 8.5, Immature Gran % (Auto) 0.300, Neut % (Auto) 64.6, Lymph % (Auto) 21.1, [place] % (Auto) 11.2 H, Eos % (Auto) 1.9, Baso % (Auto) 0.9, Absolute Neuts (auto) 4.2, Absolute Lymphs (auto) 1.36, Nucleated RBC % 0 08/14/20 19:00: Sodium 138, Potassium 3.6, Chloride 107, Carbon Dioxide 23.0, Anion Gap 8, BUN 16, Creatinine 0.79, Estim Creat Clear Calc 63.88, Est GFR (MDRD) Af Amer 93, Est GFR (MDRD) Non-Af 77, BUN/Creatinine Ratio 20.2 H, Glucose 60 L, Calcium 9.2, Troponin I < 0.015 Current Medications Nitroglycerin (Nitroglycerin Sl (Ed/Img/Cath) 0.4 Mg Tablet) 0.4 mg SL Q5M PRN PRN Reason: Chest pain Assessment/Plan All Active Problems (Last Reviewed 08/14/20 @ 09:30 by Fatuma LOPEZ, PA) Chest pain (Acute) The patient is a 64 y/o F w/ PMHx: Chronic normocytic anemia, Obesity, Chronic COPD, HTN, HLD, Hx mural thrombus w/ Acute [place] STEMI/CAD, Takotsubo syndrome/Ischemic Cardiomyopathy, IBS with diarrhea, Diabetes mellitus type II, Anxiety and Depression, Multiple Sclerosis, BRYAN, PAF, RLS, Chronic back pain/DDD who presents to the [facility] ED on 08/14/20 with history of being suddenly awoken at approximately 1700 on day of ED presentation from a nap with significant retrosternal chest discomfort described as a heaviness/pressure with associated shortness of breath as well as nausea with radiation to LUE. 1. Chest Pain: EKG in ED sinus rhythm with sinus rhythm with no acute evidence of ischemia, CXR w/ no acute cardiopulmonary findings, initial trop normal x1. Will admit to PCU, place on a monitored bed to assure no acute myocardial infarction with serial cardiac enzymes and EKGs. If repeat cardiac enzymes and EKGs remain unremarkable will pursue a.m. cardiac stress testing especially given recent cardiology evaluation and planned outpatient study however if enzymes alter or EKGs change would consult cardiology directly. Magnesium level requested. FLP in AM. ASA, NG, morphine. 2. CAD, history of mural thrombus with history of STEMI: Status post prior STEMI, continue aspirin, Plavix, Coreg, lisinopril, statin therapy, no longer on any anticoagulant therapy per current list. 3. Hypertension: Continue home regimen including Coreg, isosorbide, lisinopril with hold parameters as needed, PRN hydralazine. 4. Hyperlipidemia: Continue home statin regimen. AM FLP. 5. Takotsubo syndrome/ischemic cardiomyopathy/Chronic Systolic CHF: We will continue aspirin, Plavix, Coreg, isosorbide, lisinopril, statin home regimen. 6. Diabetes mellitus type II: Hold oral home regimen, ADA diet until n.p.o. status, accu checks w/ ISS. 7. Chronic normocytic anemia: Admission hemoglobin 9.3, baseline appears most recently 8-9, prior to this 10-11, given trend downward will obtain iron panel, ferritin, vitamin B12 and folic acid as well as guaiac. 8. Anxiety and depression: We will continue patient home duloxetine as well as trazodone nightly regimen. 9. Obesity: Weight loss and lifestyle changes encouraged. 10. Restless leg syndrome: We will continue patient home Requip regimen. 11. Chronic COPD: Patient not on chronic oxygen nor on chronic inhalers, will have as needed albuterol, encourage head of bed and I-S. 12. IBS with chronic diarrhea: We will continue patient home as needed Bentyl regimen. 13. GERD: We will continue patient home PPI. 14. BRYAN: We will continue home BiPAP nightly. 15. Multiple Sclerosis: Will continue patient home teriflunomide regimen, fall precautions, 16. DVT prophylaxis: SCDs, Lovenox. 17. CODE status: Full Code status. OBSV E&M: 24723 Initial observation care L3
[2020-08-14] MEDS: Morphine 2 MG/ML Syringe IV (20:18)
--- NOTE | 2020-08-14 21:40 | EKG12_ITS ---
Test Reason : CP Blood Pressure : / mmHG Vent. Rate : 074 BPM Atrial Rate : 074 BPM P-R Int : 144 ms QRS Dur : 096 ms QT Int : 384 ms P-R-T Axes : 065 007 112 degrees QTc Int : 426 ms Normal sinus rhythm Low voltage QRS Borderline ECG When compared with ECG of 16-AUG-2020 05:47, MANUAL COMPARISON REQUIRED, DATA IS UNCONFIRMED Confirmed by JACQUELINE WITT, KASSANDRA ([id number]), furniture upholsterer apprentice YUNG MUNGUIA ([id number]) on 08/17/2020 8:27:30 AM Referred By: RILEY Confirmed By:LILLY PHILLIPS MD
[2020-08-14 23:05] LABS: Magnesium 1.9 mg/dL (1.6-2.6)
[2020-08-14] MEDS: 0.9% Saline Lock 10 ML Syringe IV (23:56)
[2020-08-15] VITALS (14 sets, daily range): BP systolic 91–161; BP diastolic 48–71; PULSE 80–112; RESP 16–20; TEMP 36.1–37.1; O2SAT 91–98
[2020-08-15 00:07] LABS: Bedside Glucose 84 mg/dL (70-110)
[2020-08-15] MEDS: Morphine 2 MG/ML Syringe IV ×3 (00:11→12:16)
[2020-08-15] MEDS: Sucralfate 1 GM Tablet PO ×5 (00:35→22:13)
[2020-08-15] MEDS: Carvedilol 6.25 MG Tablet PO ×2 (00:36→09:27)
[2020-08-15] MEDS: Atorvastatin Calcium 40 MG Tablet PO ×2 (00:37→22:14)
[2020-08-15] MEDS: hydrOXYzine PAM 25 MG Capsule 50 MG PO ×4 (00:38→18:05)
[2020-08-15] MEDS: Pramipexole Di-HCl 0.5 MG Tablet PO ×3 (00:38→22:14)
[2020-08-15] MEDS: traZODone 50 MG Tablet PO (01:29)
--- NOTE | 2020-08-15 02:19 | CPS ---
Patient refused BiPAP for tonight.
[2020-08-15 02:31] LABS: Absolute Lymphocyte Count 1.64 X10^3/uL (0.83-4.51); Absolute Neutrophil Count 3.9 X10^3/uL (2.0-7.7); Basophil# 0.07 X10^3/uL; Basophil% 1.1 % (0-1); Eosinophil# 0.16 X10^3/uL; Eosinophils% 2.4 % (0-5); Hematocrit 25.5 % (37-47); Lymphocyte # 1.64 X10^3/ul (0.83-4.51); Lymphocyte % 24.8 % (19-41); Mean Corp Hgb Conc 31.4 g/dL (32-36); Mean Corpuscular Hgb 28.2 pg (27.0-32.0); Mean Corpuscular Volume 89.8 fL (81-99); Mean Platelet Vol. 8.7 fl (6.2-12.0); Monocyte# 0.79 X10^3/uL; Monocyte% 11.9 % (0-10); NRBC Flagged by Analyzer 0 % (0-5); Neutrophil # 3.94 X10^3/uL (2.7-7.7); Neutrophil % 59.5 % (47-70); Platelet Count 276 K/mm3 (150-450); RBC Distribution Width CV 17.9 % (11.6-14.6); RBC Distribution Width SD 57.4 fl (35.1-43.9); Red Blood Count 2.84 M/mm3 (4.2-5.4); White Blood Count 6.6 K/mm3 (4.4-11.0)
[2020-08-15 02:57] LABS: Vitamin B12 824 pg/mL (211-911)
[2020-08-15 03:08] LABS: ALB/GLOB Ratio 0.9 RATIO (0.9-2.4); AST(SGOT) 14 U/L (15-37); Alanine Aminotransfer ALT/SGPT 16 U/L (13-56); Albumin, Serum 2.1 g/dL (3.2-5.0); Alkaline Phosphatase 80 U/L (45-117); Anion Gap 9 (5-15); BUN 17 mg/dL (7-18); BUN/Creat Ratio 21.9 RATIO (10-20); Calcium,Total 8.4 mg/dL (8.5-10.1); Chloride 110 mmol/L (98-107); Cholesterol 78 mg/dL (200); Creatinine, Serum 0.78 mg/dL (0.55-1.02); EST Glomerular Filtration Rate 79 mL/min (>60); Est Glom Filt Rate - Afr Amer 95 mL/min (>60); Estimated Creatinine Clearance 62.09 ml/min; Globulin 2.4 g/dL (2.2-4.2); Glucose 99 mg/dL (74-106); High Density Lipoprotein 55 mg/dL; Iron 43 ug/dL (50-170); Iron Binding Capacity,Total 342 ug/dL (250-450); Potassium 3.3 mmol/L (3.5-5.1); Protein, Total 4.5 g/dL (6.4-8.2); Sodium Level 138 mmol/L (136-145); Triglycerides 71 mg/dL; Very Low Density Lipoprotein 14 mg/dL (5-40)
[2020-08-15 03:09] LABS: Ferritin 19 ng/mL (8-252); PERCENT IRON SATURATION 12.6 % (15.0-55.0)
[2020-08-15] MEDS: 0.9% Saline Lock 10 ML Syringe IV ×3 (04:27→16:09)
--- NOTE | 2020-08-15 05:55 | EKG12_ITS ---
Test Reason : AM EKG Blood Pressure : / mmHG Vent. Rate : 090 BPM Atrial Rate : 090 BPM P-R Int : 118 ms QRS Dur : 098 ms QT Int : 364 ms P-R-T Axes : -05 -35 130 degrees QTc Int : 445 ms Normal sinus rhythm Left axis deviation Low voltage QRS Inferior infarct , age undetermined Abnormal ECG When compared with ECG of 14-AUG-2020 21:50, MANUAL COMPARISON REQUIRED, DATA IS UNCONFIRMED Confirmed by JACQUELINE WITT, KASSANDRA ([id number]), editor greeting card YUNG MUNGUIA ([id number]) on 08/17/2020 8:28:54 AM Referred By: RILEY Confirmed By:LILLY PHILLIPS MD
[2020-08-15] MEDS: proCHLORPERazine 10 MG/2 ML Vial 5 MG IV ×2 (06:09→16:06)
[2020-08-15] MEDS: Potassium Chloride Oral Tablet 20 MEQ PO (06:11)
[2020-08-15] MEDS: Lisinopril 2.5 MG Tablet PO (06:11)
[2020-08-15] MEDS: Aspirin E.C. 81 MG Tablet PO (06:11)
[2020-08-15] MEDS: Clopidogrel Bisulfate 75 MG Tablet PO (06:11)
[2020-08-15] MEDS: Glucose Oral Gel 15 GM Tube (06:51)
[2020-08-15] MEDS: Glucose Oral Gel 15 GM Tube PO (06:54)
[2020-08-15] MEDS: Dextrose 50%-Water 25 GM/50 ML DISP.SYRIN IV (07:14)
[2020-08-15 07:32] LABS: Glucose 126 mg/dL (74-106)
[2020-08-15 07:56] LABS: Bedside Glucose 45 mg/dL (70-110)
[2020-08-15 07:56] LABS: Bedside Glucose 37 mg/dL (70-110)
[2020-08-15 08:00] LABS: Bedside Glucose 37 mg/dL (70-110)
[2020-08-15 08:00] LABS: Bedside Glucose 132 mg/dL (70-110)
[2020-08-15] MEDS: oxyCODONE 5 MG Tablet PO ×3 (09:15→22:12)
[2020-08-15] MEDS: DULoxetine Hcl 30 MG Capsule PO ×2 (09:27→22:13)
[2020-08-15] MEDS: Pantoprazole Sodium 40 MG Tablet PO (09:27)
[2020-08-15] MEDS: Mirabegron 25 MG TAB.ER.24H PO (09:27)
[2020-08-15] MEDS: Isosorbide Mononitrate 30 MG Tablet PO (09:27)
[2020-08-15] MEDS: Modafinil 200 MG Tablet PO (09:28)
[2020-08-15] MEDS: Enoxaparin 40 MG/0.4 ML Syringe SC (09:28)
[2020-08-15] MEDS: Potassium Chloride Oral Tablet 20 MEQ 40 MEQ PO (09:32)
--- NOTE | 2020-08-15 10:39 | NURSING ---
Missing two home medications for patient: Suprax and Aubagio. Patient did not bring to hospital. Spoke to pharmacist Rikki Valadez and hospital does not supply these two medications. Reported to bedside nurse Kandy AJ.
[2020-08-15] MEDS: Dicyclomine 10 MG Capsule 20 MG PO (11:34)
[2020-08-15] MEDS: Acetaminophen 325 MG Tablet 650 MG PO ×2 (11:38→20:25)
[2020-08-15] MEDS: Insulin Lispro 100 UNIT/ML INSULN.PEN SC ×2 (12:17→18:05)
[2020-08-15 12:25] LABS: Bedside Glucose 200 mg/dL (70-110)
--- NOTE | 2020-08-15 14:29 | CASEMGMT ---
RN SYDNEE NOTE: Intro role of CM to patient and [facility] form explained re: Observation status for treatment of chest pain. Explained hospitalization will be paid per insurance policy for Outpatient billing and condition will continue to be evaluated for Inpt necessity. Also let pt know that [facility] sends paper in the billing packet with their phone number if questions arise. Discussed Pharmacy section of [facility] form and self administered medication guideline. Pt verbalizes understanding and does not have further questions. Form signed, copy made and placed in chart, and original given to pt. Pt asked to speak with a SW for SNF placement, stating she went to one a couple of years ago when she was feeling crappy like this and it was helpful. SW, Rajwinder, made aware. Arjun BARAJAS RN CM
--- NOTE | 2020-08-15 14:29 | PCM.PN.HOSP ---
<Martell Cardenas - Last Filed: 08/15/20 14:29> Patient Problems: Active and Suspected Problems (Last Reviewed 08/14/20 @ 09:30 by Fatuma LOPEZ PA) Chest pain (Acute) Subjective: Patient is a 64-year-old female comfortably resting in bed and eating breakfast, alert and oriented x3. Patient reports mild chest pain, however reports this is under control on her current Nitrostat prescription. Denies shortness of breath, palpitations, fever, chills, N/V/D. Objective: Clinical Impression(s) from Imaging Studies Chest X-Ray 08/14/20 18:56 IMPRESSION: No acute cardiopulmonary pathology Electronically Signed: Brant Albarran MD at 19:33 EDT , Service support , Vitals/I&O's: Vital Signs Temp Pulse Resp BP Pulse Ox 98.1 F 95 16 94/53 L 98 08/15/20 13:37 08/15/20 13:37 08/15/20 13:37 08/15/20 13:37 08/15/20 13:37 Oxygen Delivery Method Room Air Weight: 169 lb 5.04 oz Body Mass Index (BMI) 28.0 Finger Stick Blood Glucose 151 Intake and Output for Last 24 Hours 08/13/20 08/14/20 08/15/20 23:59 23:59 23:59 Intake Total 45 / 45 Output Total 0 / 0 Balance 45 / 45 General: Alert, Oriented x3, Cooperative HEENT: Atraumatic, PERRLA, EOMI, Normocephalic Neck: Supple, No JVD, Negative Carotid Bruits Lungs: Clear to auscultation, Normal air movement Cardiovascular: Regular rate, No murmurs Abdomen: Bowel Sounds Present, Soft, Non Tender Extremities: No edema, Capillary Refill Less than 3 Seconds Skin: No rashes, No breakdown Musculoskeletal: No Tenderness to Palpation of Joints or Extremities Neurological: Cranial nerves II-XII grossly intact Psych/Mental Status: Normal Affect, Appropriate Laboratory Results 08/14/20 19:00: WBC 6.5, RBC 3.26 L, Hgb 9.3 L, Hct 29.7 L, MCV 91.1, MCH 28.5, MCHC 31.3 L, RDW Std Deviation 58.6 H, RDW Coeff of Yeimi 18.0 H, Plt Count 307, MPV 8.5, Immature Gran % (Auto) 0.300, Neut % (Auto) 64.6, Lymph % (Auto) 21.1, Twiggs % (Auto) 11.2 H, Eos % (Auto) 1.9, Baso % (Auto) 0.9, Absolute Neuts (auto) 4.2, Absolute Lymphs (auto) 1.36, Nucleated RBC % 0 08/14/20 19:00: Sodium 138, Potassium 3.6, Chloride 107, Carbon Dioxide 23.0, Anion Gap 8, BUN 16, Creatinine 0.79, Estim Creat Clear Calc 63.88, Est GFR (MDRD) Af Amer 93, Est GFR (MDRD) Non-Af 77, BUN/Creatinine Ratio 20.2 H, Glucose 60 L, Calcium 9.2, Troponin I < 0.015 08/14/20 22:13: Troponin I < 0.015 08/14/20 22:13: Magnesium 1.9 08/14/20 23:55: POC Glucose 84 08/15/20 02:20: Troponin I < 0.015 08/15/20 02:20: WBC 6.6, RBC 2.84 L, Hgb 8.0 L, Hct 25.5 L, MCV 89.8, MCH 28.2, MCHC 31.4 L, RDW Std Deviation 57.4 H, RDW Coeff of Yeimi 17.9 H, Plt Count 276, MPV 8.7, Immature Gran % (Auto) 0.300, Neut % (Auto) 59.5, Lymph % (Auto) 24.8, Twiggs % (Auto) 11.9 H, Eos % (Auto) 2.4, Baso % (Auto) 1.1 H, Absolute Neuts (auto) 3.9, Absolute Lymphs (auto) 1.64, Nucleated RBC % 0 08/15/20 02:20: Sodium 138, Potassium 3.3 L, Chloride 110 H, Carbon Dioxide 19.0 L, Anion Gap 9, BUN 17, Creatinine 0.78, Estim Creat Clear Calc 62.09, Est GFR (MDRD) Af Amer 95, Est GFR (MDRD) Non-Af 79, BUN/Creatinine Ratio 21.9 H, Glucose 99, Calcium 8.4 L, Iron 43 L, TIBC 342, Iron Saturation 12.6 L, Ferritin 19, Total Bilirubin 0.20, AST 14 L, ALT 16, Alkaline Phosphatase 80, Total Protein 4.5 L, Albumin 2.1 L, Globulin 2.4, Albumin/Globulin Ratio 0.9, Triglycerides 71, Cholesterol 78, LDL Cholesterol 9, VLDL Cholesterol 14, HDL Cholesterol 55, Folate 13.50 08/15/20 02:20: Vitamin B12 824 08/15/20 06:12: POC Glucose 45 L 08/15/20 06:51: POC Glucose 37 L* 08/15/20 07:07: POC Glucose 37 L* 08/15/20 07:16: Glucose 126 H 08/15/20 07:53: POC Glucose 132 H 08/15/20 12:12: POC Glucose 200 H Current Medications Acetaminophen (Acetaminophen 325 Mg Tablet) 650 mg PO Q6H PRN PRN PRN Reason: Pain Score 1-10/Temp > 100.7 F Last Admin: 08/15/20 11:38 Dose: 650 mg Documented by: Al Hydroxide/Mg Hydroxide (Mag Hydrox/Al Hydrox/Simeth 30 Ml Udc) 30 ml PO Q6H PRN PRN PRN Reason: Gastric Burning Albuterol Sulfate (Albuterol 2.5 Mg/3 Ml Vial.Neb.) 2.5 mg INHALATION Q2H PRN PRN PRN Reason: Dyspnea, wheezing Aspirin (Aspirin E.C. 81 Mg Tablet) 81 mg PO DAILY@0800 [facility] Last Admin: 08/15/20 06:11 Dose: 81 mg Documented by: Atorvastatin Calcium (Atorvastatin Calcium 40 Mg Tablet) 40 mg PO QHS [facility] Last Admin: 08/15/20 00:37 Dose: 40 mg Documented by: Carvedilol (Carvedilol 6.25 Mg Tablet) 6.25 mg PO BID [facility] Last Admin: 08/15/20 09:27 Dose: 6.25 mg Documented by: Cefixime (Cefixime 400 Mg Capsule) 400 mg PO DAILY [facility] Last Admin: 08/15/20 10:38 Dose: Not Given Documented by: Clopidogrel Bisulfate (Clopidogrel Bisulfate 75 Mg Tablet) 75 mg PO DAILY [facility] Last Admin: 08/15/20 06:11 Dose: 75 mg Documented by: Dextrose (Dextrose 50%-Water 25 Gm/50 Ml Disp.Syrin) 0 gm IV X1 PRN; Protocol PRN Reason: Hypoglycemia Dicyclomine HCl (Dicyclomine 10 Mg Capsule) 20 mg PO BID PRN PRN PRN Reason: abdominal discomfort Last Admin: 08/15/20 11:34 Dose: 20 mg Documented by: Duloxetine HCl (Duloxetine Hcl 30 Mg Capsule) 30 mg PO BID [facility] Last Admin: 08/15/20 09:27 Dose: 30 mg Documented by: Enoxaparin Sodium (Enoxaparin 40 Mg/0.4 Ml Syringe) 40 mg SC DAILY [facility] Last Admin: 08/15/20 09:28 Dose: 40 mg Documented by: Estrogens Conj/Medroxyprogest Acet (Estrogen,Con/M-Progest Acet 1 Tab Tablet) tab PO DAILY [facility] Glucagon (Glucagon 1 Mg/Ml Syringe) 1 mg IM .X1 PRN PRN Reason: Hypoglycemia Guaifenesin (Guaifenesin 10 Ml Udc (200mg/10ml)) 20 ml PO Q4H PRN PRN PRN Reason: COUGH Hydralazine HCl (Hydralazine 20 Mg/Ml Vial) 10 mg IV Q4H PRN PRN PRN Reason: SBP > 160 Hydroxyzine Pamoate (Hydroxyzine Asia 25 Mg Capsule) 50 mg PO 4X/DAY [facility] Last Admin: 08/15/20 13:55 Dose: 50 mg Documented by: Ferric Sodium Gluconate Complex 250 mg/ Sodium Chloride 270 mls @ 135 mls/hr IV X1 ONE Stop: 08/15/20 14:59 Last Admin: 08/15/20 13:54 Dose: 135 mls/hr Documented by: Insulin Human Lispro (Insulin Lispro 100 Unit/Ml Insuln.Pen) 0 unit SC ACHS [facility]; Protocol Last Admin: 08/15/20 12:17 Dose: 2 u Documented by: Isosorbide Mononitrate (Isosorbide Mononitrate 30 Mg Tablet) 30 mg PO DAILY [facility] Last Admin: 08/15/20 09:27 Dose: 30 mg Documented by: Lisinopril (Lisinopril 2.5 Mg Tablet) 2.5 mg PO DAILY [facility] Last Admin: 08/15/20 06:11 Dose: 2.5 mg Documented by: Magnesium Hydroxide (Magnesium Hydroxide 30 Ml Udc) 30 ml PO DAILY PRN PRN PRN Reason: Constipation Mirabegron (Mirabegron 25 Mg Tab.Er.24h) 25 mg PO DAILY [facility] Last Admin: 08/15/20 09:27 Dose: 25 mg Documented by: Modafinil (Modafinil 200 Mg Tablet) 200 mg PO DAILY [facility] Last Admin: 08/15/20 09:28 Dose: 200 mg Documented by: Morphine Sulfate (Morphine 2 Mg/Ml Syringe) 2 mg IV Q3H PRN PRN PRN Reason: Pain Score 6-10 Last Admin: 08/15/20 12:16 Dose: 2 mg Documented by: Nitroglycerin (Nitroglycerin (Inpatient Use) 0.4 Mg Tab.Subl) 0.4 mg SL Q5M PRN PRN Reason: CARDIAC/CHEST PAIN Ondansetron HCl (Ondansetron 4 Mg/2 Ml Vial) 4 mg IV Q8H PRN PRN PRN Reason: NAUSEA/VOMITING Last Admin: 08/14/20 23:56 Dose: 4 mg Documented by: Oxycodone HCl (Oxycodone 5 Mg Tablet) 5 mg PO Q4H PRN PRN PRN Reason: Pain Score 4-5 Last Admin: 08/15/20 09:15 Dose: 5 mg Documented by: Pantoprazole Sodium (Pantoprazole Sodium 40 Mg Tablet) 40 mg PO DAILY [facility] Last Admin: 08/15/20 09:27 Dose: 40 mg Documented by: Potassium Chloride (Potassium Chloride Oral Tablet 20 Meq) [facility] Pramipexole Dihydrochloride (Pramipexole Di-Hcl 0.5 Mg Tablet) 0.5 mg PO LUNCH [facility] Last Admin: 08/15/20 11:30 Dose: 0.5 mg Documented by: Pramipexole Dihydrochloride (Pramipexole Di-Hcl 0.5 Mg Tablet) 0.5 mg PO QHS [facility] Last Admin: 08/15/20 00:38 Dose: 0.5 mg Documented by: Prochlorperazine Edisylate (Prochlorperazine 10 Mg/2 Ml Vial) 5 mg IV Q4H PRN PRN PRN Reason: Breakthrough Nausea/Vomiting Last Admin: 08/15/20 06:09 Dose: 5 mg Documented by: Psyllium Hydrophilic Mucilloid (Psyllium 1 Packet) 1 packet PO DAILY PRN PRN PRN Reason: Constipation Senna/Docusate Sodium (Senna/Docusate Sodium 1 Tablet) 2 tablet PO BID PRN PRN PRN Reason: Constipation Sodium Chloride (0.9% Saline Lock 10 Ml Syringe) 10 - 40 ml IV UD PRN PRN Reason: SALINE FLUSH Last Admin: 08/15/20 06:10 Dose: 10 ml Documented by: Sucralfate (Sucralfate 1 Gm Tablet) 1 gm PO 1HR_ACHS RANDI Last Admin: 08/15/20 11:30 Dose: 1 gm Documented by: Throat Lozenges (Benzocaine/Menthol 1 Lozenge) 1 lozenge MUCOUS MEM Q2H PRN PRN PRN Reason: SORE THROAT Trazodone HCl (Trazodone 50 Mg Tablet) 50 mg PO QHS PRN PRN Reason: insomnia Last Admin: 08/15/20 01:29 Dose: 50 mg Documented by: STROKE Vital Signs/Narrative: Vital Signs Temp Pulse Resp BP Pulse Ox 08/15/20 13:37 98.1 F 95 16 94/53 L 98 08/15/20 12:53 102 H Medical Necessity - Tobacco Use Smoking Status: Current every day smoker Tobacco Use: Cigarettes, Cigars Assessment/Plan All Active Problems (Last Reviewed 08/14/20 @ 09:30 by Fatuma LOPEZ, PA) Chest pain (Acute) Patient is a 64-year-old female who presented to the ED on 08/14/2020 with a chief complaint of chest pain. Today patient endorses mild chest pain, however reports this is controlled on her current nitroglycerin regimen. Patient was supposed to undergo cardiac stress test this morning to evaluate her chest pain, however mini shifter has delayed procedure due to patient's low potassium and iron. Procedure has been scheduled for tomorrow and potassium and iron have been replaced via supplementation. 1) Chest pain EKG obtained in the emergency department revealed normal sinus rhythm with no evidence of acute ischemia. X-ray demonstrates no acute cardiopulmonary findings. Troponins not elevated throughout cycle. Plan; continue nitroglycerin as needed, cardiac stretch scheduled for 08/16/2020. 2) Hypokalemia Potassium 3.3, magnesium within normal limits. Plan; K-Dur for 40 mEq p.o. daily. 3) CAD Plan; continue aspirin, Plavix, Coreg, lisinopril, statin. 4) Hypertension Plan; continue Coreg, isosorbide, lisinopril with hold parameters as needed, as needed hydralazine 5) Takotsubo syndrome/ischemic cardiomyopathy/Chronic Systolic CHF Plan; continue aspirin, Plavix, Coreg, isosorbide, lisinopril, home statin regimen. 6) DM2 Plan; ADA diet until n.p.o. status continue Accu-Cheks with sliding scale insulin. 7) Chronic normocytic anemia. Stable, 8.0. Iron 43. Plan; continue to monitor, ferric sodium gluconate complex administered. 8) Anxiety and depression Plan; continue home duloxetine and trazodone. 9) Obesity Plan; weight loss and lifestyle modifications encouraged. 10) RLS Plan; continue home Requip regimen. 11) chronic COPD Plan; continue albuterol as needed, encourage head above bed 12) IBS with chronic diarrhea Plan; continue Bentyl regimen. 13) GERD Plan; Continue PPI 14) BRYAN Plan; continue home BiPAP 15) multiple sclerosis Plan; continue home teriflunomide regimen. DVT prophylaxis -Lovenox SD Patient seen by Martell Cardenas PA-C, under the supervision of Dr. Aquino. <Mikhail Aquino - Last Filed: 08/15/20 19:12> Reason for Visit: Low for chest pain and anemia Objective: Patient has history of shortness of breath on exertion for last 1 to 2 months. Denies any chest pressure on exertion. Started to have a chest pain yesterday with radiation to left shoulder and left arm, sharp in quality yesterday. Currently chest pain-free. Physical exam General: Alert, Oriented x3, Cooperative HEENT: Atraumatic, PERRLA, EOMI, Normocephalic Oral: No Gingival or Mucosal Lesions/ Ulcerations Neck: Supple, No JVD, Negative Carotid Bruits Lungs: Air entry diminished in bilateral lung bases. No crepitation/rhonchi Cardiovascular: Regular rate, Regular Rhythm, Normal S1, Normal S2, No murmurs Abdomen: Bowel Sounds Present, Soft, Non Tender, Non-Distended : No renal angle tenderness. No suprapubic tenderness. Extremities: No edema, Capillary Refill Less than 3 Seconds Skin: No rashes, No breakdown Musculoskeletal: No Tenderness to Palpation of Joints or Extremities Neurological: Cranial nerves II-XII grossly intact, Deep Tendon Reflexes 2+/4 and Symmetrical, Neuro grossly intact Psych/Mental Status: Normal Affect, Appropriate. Vitals/I&O's: Vital Signs Temp Pulse Resp BP Pulse Ox 97 F L 85 16 99/48 L 98 08/15/20 16:04 08/15/20 16:35 08/15/20 16:04 08/15/20 16:04 08/15/20 16:04 Oxygen Delivery Method Room Air Weight: 169 lb 5.04 oz Body Mass Index (BMI) 28.0 Finger Stick Blood Glucose 151 Intake and Output for Last 24 Hours 08/13/20 08/14/20 08/15/20 23:59 23:59 23:59 Intake Total 1854.5 / 1854.5 Output Total 0 / 0 Balance 1854.5 / 1854.5 Laboratory Results 08/14/20 19:00: WBC 6.5, RBC 3.26 L, Hgb 9.3 L, Hct 29.7 L, MCV 91.1, MCH 28.5, MCHC 31.3 L, RDW Std Deviation 58.6 H, RDW Coeff of Yeimi 18.0 H, Plt Count 307, MPV 8.5, Immature Gran % (Auto) 0.300, Neut % (Auto) 64.6, Lymph % (Auto) 21.1, Twiggs % (Auto) 11.2 H, Eos % (Auto) 1.9, Baso % (Auto) 0.9, Absolute Neuts (auto) 4.2, Absolute Lymphs (auto) 1.36, Nucleated RBC % 0 08/14/20 19:00: Sodium 138, Potassium 3.6, Chloride 107, Carbon Dioxide 23.0, Anion Gap 8, BUN 16, Creatinine 0.79, Estim Creat Clear Calc 63.88, Est GFR (MDRD) Af Amer 93, Est GFR (MDRD) Non-Af 77, BUN/Creatinine Ratio 20.2 H, Glucose 60 L, Calcium 9.2, Troponin I < 0.015 08/14/20 22:13: Troponin I < 0.015 08/14/20 22:13: Magnesium 1.9 08/14/20 23:55: POC Glucose 84 08/15/20 02:20: Troponin I < 0.015 08/15/20 02:20: WBC 6.6, RBC 2.84 L, Hgb 8.0 L, Hct 25.5 L, MCV 89.8, MCH 28.2, MCHC 31.4 L, RDW Std Deviation 57.4 H, RDW Coeff of Yeimi 17.9 H, Plt Count 276, MPV 8.7, Immature Gran % (Auto) 0.300, Neut % (Auto) 59.5, Lymph % (Auto) 24.8, Twiggs % (Auto) 11.9 H, Eos % (Auto) 2.4, Baso % (Auto) 1.1 H, Absolute Neuts (auto) 3.9, Absolute Lymphs (auto) 1.64, Nucleated RBC % 0 08/15/20 02:20: Sodium 138, Potassium 3.3 L, Chloride 110 H, Carbon Dioxide 19.0 L, Anion Gap 9, BUN 17, Creatinine 0.78, Estim Creat Clear Calc 62.09, Est GFR (MDRD) Af Amer 95, Est GFR (MDRD) Non-Af 79, BUN/Creatinine Ratio 21.9 H, Glucose 99, Calcium 8.4 L, Iron 43 L, TIBC 342, Iron Saturation 12.6 L, Ferritin 19, Total Bilirubin 0.20, AST 14 L, ALT 16, Alkaline Phosphatase 80, Total Protein 4.5 L, Albumin 2.1 L, Globulin 2.4, Albumin/Globulin Ratio 0.9, Triglycerides 71, Cholesterol 78, LDL Cholesterol 9, VLDL Cholesterol 14, HDL Cholesterol 55, Folate 13.50 08/15/20 02:20: Vitamin B12 824 08/15/20 06:12: POC Glucose 45 L 08/15/20 06:51: POC Glucose 37 L* 08/15/20 07:07: POC Glucose 37 L* 08/15/20 07:16: Glucose 126 H 08/15/20 07:53: POC Glucose 132 H 08/15/20 12:12: POC Glucose 200 H 08/15/20 16:44: POC Glucose 163 H Current Medications Acetaminophen (Acetaminophen 325 Mg Tablet) 650 mg PO Q6H PRN PRN PRN Reason: Pain Score 1-10/Temp > 100.7 F Last Admin: 08/15/20 11:38 Dose: 650 mg Documented by: Al Hydroxide/Mg Hydroxide (Mag Hydrox/Al Hydrox/Simeth 30 Ml Udc) 30 ml PO Q6H PRN PRN PRN Reason: Gastric Burning Albuterol Sulfate (Albuterol 2.5 Mg/3 Ml Vial.Neb.) 2.5 mg INHALATION Q2H PRN PRN PRN Reason: Dyspnea, wheezing Aspirin (Aspirin E.C. 81 Mg Tablet) 81 mg PO DAILY@0800 [facility] Last Admin: 08/15/20 06:11 Dose: 81 mg Documented by: Atorvastatin Calcium (Atorvastatin Calcium 40 Mg Tablet) 40 mg PO QHS [facility] Last Admin: 08/15/20 00:37 Dose: 40 mg Documented by: Carvedilol (Carvedilol 6.25 Mg Tablet) 6.25 mg PO BID [facility] Last Admin: 08/15/20 09:27 Dose: 6.25 mg Documented by: Cefixime (Cefixime 400 Mg Capsule) 400 mg PO DAILY [facility] Last Admin: 08/15/20 10:38 Dose: Not Given Documented by: Clopidogrel Bisulfate (Clopidogrel Bisulfate 75 Mg Tablet) 75 mg PO DAILY [facility] Last Admin: 08/15/20 06:11 Dose: 75 mg Documented by: Dextrose (Dextrose 50%-Water 25 Gm/50 Ml Disp.Syrin) 0 gm IV X1 PRN; Protocol PRN Reason: Hypoglycemia Dicyclomine HCl (Dicyclomine 10 Mg Capsule) 20 mg PO BID PRN PRN PRN Reason: abdominal discomfort Last Admin: 08/15/20 11:34 Dose: 20 mg Documented by: Duloxetine HCl (Duloxetine Hcl 30 Mg Capsule) 30 mg PO BID [facility] Last Admin: 08/15/20 09:27 Dose: 30 mg Documented by: Enoxaparin Sodium (Enoxaparin 40 Mg/0.4 Ml Syringe) 40 mg SC DAILY [facility] Last Admin: 08/15/20 09:28 Dose: 40 mg Documented by: Estrogens Conj/Medroxyprogest Acet (Estrogen,Con/M-Progest Acet 1 Tab Tablet) tab PO DAILY [facility] Glucagon (Glucagon 1 Mg/Ml Syringe) 1 mg IM .X1 PRN PRN Reason: Hypoglycemia Guaifenesin (Guaifenesin 10 Ml Udc (200mg/10ml)) 20 ml PO Q4H PRN PRN PRN Reason: COUGH Hydralazine HCl (Hydralazine 20 Mg/Ml Vial) 10 mg IV Q4H PRN PRN PRN Reason: SBP > 160 Hydroxyzine Pamoate (Hydroxyzine Asia 25 Mg Capsule) 50 mg PO 4X/DAY [facility] Last Admin: 08/15/20 18:05 Dose: 50 mg Documented by: Insulin Human Lispro (Insulin Lispro 100 Unit/Ml Insuln.Pen) 0 unit SC [facility]; Protocol Last Admin: 08/15/20 18:05 Dose: 1 u Documented by: Isosorbide Mononitrate (Isosorbide Mononitrate 30 Mg Tablet) 30 mg PO DAILY [facility] Last Admin: 08/15/20 09:27 Dose: 30 mg Documented by: Lisinopril (Lisinopril 2.5 Mg Tablet) 2.5 mg PO DAILY [facility] Last Admin: 08/15/20 06:11 Dose: 2.5 mg Documented by: Magnesium Hydroxide (Magnesium Hydroxide 30 Ml Udc) 30 ml PO DAILY PRN PRN PRN Reason: Constipation Mirabegron (Mirabegron 25 Mg Tab.Er.24h) 25 mg PO DAILY [facility] Last Admin: 08/15/20 09:27 Dose: 25 mg Documented by: Modafinil (Modafinil 200 Mg Tablet) 200 mg PO DAILY [facility] Last Admin: 08/15/20 09:28 Dose: 200 mg Documented by: Morphine Sulfate (Morphine 2 Mg/Ml Syringe) 2 mg IV Q3H PRN PRN PRN Reason: Pain Score 6-10 Last Admin: 08/15/20 12:16 Dose: 2 mg Documented by: Nitroglycerin (Nitroglycerin (Inpatient Use) 0.4 Mg Tab.Subl) 0.4 mg SL Q5M PRN PRN Reason: CARDIAC/CHEST PAIN Ondansetron HCl (Ondansetron 4 Mg/2 Ml Vial) 4 mg IV Q8H PRN PRN PRN Reason: NAUSEA/VOMITING Last Admin: 08/14/20 23:56 Dose: 4 mg Documented by: Oxycodone HCl (Oxycodone 5 Mg Tablet) 5 mg PO Q4H PRN PRN PRN Reason: Pain Score 4-5 Last Admin: 08/15/20 18:04 Dose: 5 mg Documented by: Pantoprazole Sodium (Pantoprazole Sodium 40 Mg Tablet) 40 mg PO DAILY [facility] Last Admin: 08/15/20 09:27 Dose: 40 mg Documented by: Potassium Chloride (Potassium Chloride Oral Tablet 20 Meq) [facility] Pramipexole Dihydrochloride (Pramipexole Di-Hcl 0.5 Mg Tablet) 0.5 mg PO LUNCH [facility] Last Admin: 08/15/20 11:30 Dose: 0.5 mg Documented by: Pramipexole Dihydrochloride (Pramipexole Di-Hcl 0.5 Mg Tablet) 0.5 mg PO QHS [facility] Last Admin: 08/15/20 00:38 Dose: 0.5 mg Documented by: Prochlorperazine Edisylate (Prochlorperazine 10 Mg/2 Ml Vial) 5 mg IV Q4H PRN PRN PRN Reason: Breakthrough Nausea/Vomiting Last Admin: 08/15/20 16:06 Dose: 5 mg Documented by: Psyllium Hydrophilic Mucilloid (Psyllium 1 Packet) 1 packet PO DAILY PRN PRN PRN Reason: Constipation Senna/Docusate Sodium (Senna/Docusate Sodium 1 Tablet) 2 tablet PO BID PRN PRN PRN Reason: Constipation Sodium Chloride (0.9% Saline Lock 10 Ml Syringe) 10 - 40 ml IV UD PRN PRN Reason: SALINE FLUSH Last Admin: 08/15/20 16:09 Dose: 10 ml Documented by: Sucralfate (Sucralfate 1 Gm Tablet) 1 gm PO 1HR_ACHS [facility] Last Admin: 08/15/20 16:45 Dose: 1 gm Documented by: Throat Lozenges (Benzocaine/Menthol 1 Lozenge) 1 lozenge MUCOUS MEM Q2H PRN PRN PRN Reason: SORE THROAT Trazodone HCl (Trazodone 50 Mg Tablet) 50 mg PO QHS PRN PRN Reason: insomnia Last Admin: 08/15/20 01:29 Dose: 50 mg Documented by: STROKE Vital Signs/Narrative: Vital Signs Temp Pulse Resp BP Pulse Ox 08/15/20 16:35 85 08/15/20 16:04 97 F L 80 16 99/48 L 98 Assessment/Plan This patient was seen in conjunction with JOHN Hood. I have independently interviewed and examined the patient and reviewed pertinent history, examination findings, laboratory and plan of management. I have reviewed the note and agree with the documented findings with the few additional points. In brief, patient is admitted for atypical chest pain yesterday with radiation to left arm along with history of dyspnea on exertion for 1 to 2 months. Patient serial troponin enzymes are negative. Blood pressure was elevated when she came in but was decreased to 108/52 and 94/53. Calcium was low 3.3 and replaced. H&H 8.0/25 and given 200 mg of IV iron sucrose. Atypical chest pain with history of coronary artery disease and PCI in the past: A stress test for tomorrow a.m. Chronic normocytic normochromic anemia: Patient denies any GI bleed history. Work-up for anemia ordered including for hemolytic anemia as patient is on multiple medications. Hypertension: Currently blood pressure is on lower side. Patient is hypotension due to Vistaril large dose 50 mg every 6 hourly which is a stopped. Patient on other antihypertensive medication, dose adjusted eluding Coreg and lisinopril. Diabetes mellitus type 2: Patient had hypoglycemic episode in the morning and was corrected with D50. Other comorbidities include multiple sclerosis and is on modafinil and teriflunomide. I have discussed my assessment with JOHN Hood and orders have been reviewed. OBSV E&M: 72078 Subsequent observation care L2
--- NOTE | 2020-08-15 14:48 | CASEMGMT ---
RN SYDNEE said patient is asking for SW for placement. SW met with patient in room. Introduced self and role at [facility]. SW attempted to give patient a list of SNF's and she said she wants to go to [facility] in [place]. She has been there before and it was a great place. SW told her therapy will need to see her and we will see what they recommend. SW told her SW will follow up with her tomorrow. Rajwinder SANCHEZ
[2020-08-15 17:45] LABS: Bedside Glucose 163 mg/dL (70-110)
[2020-08-15 20:03] LABS: Magnesium 1.8 mg/dL (1.6-2.6); Potassium 3.4 mmol/L (3.5-5.1)
[2020-08-15] MEDS: Folic Acid 1 MG Tablet PO (20:22)
[2020-08-15] MEDS: Carvedilol 3.125 MG TABLET PO (22:14)
[2020-08-15 22:21] LABS: Bedside Glucose 169 mg/dL (70-110)
[2020-08-16] VITALS (12 sets, daily range): BP systolic 100–138; BP diastolic 40–69; PULSE 75–87; RESP 16–18; TEMP 36.5–36.9; O2SAT 94–98
[2020-08-16] MEDS: Morphine 2 MG/ML Syringe IV ×4 (02:15→21:29)
[2020-08-16] MEDS: proCHLORPERazine 10 MG/2 ML Vial 5 MG IV ×3 (02:15→18:06)
[2020-08-16] MEDS: 0.9% Saline Lock 10 ML Syringe IV ×4 (02:16→16:01)
--- NOTE | 2020-08-16 05:55 | EKG12_ITS ---
Test Reason : AM EKG Blood Pressure : / mmHG Vent. Rate : 074 BPM Atrial Rate : 074 BPM P-R Int : 150 ms QRS Dur : 098 ms QT Int : 408 ms P-R-T Axes : 052 -37 100 degrees QTc Int : 452 ms Normal sinus rhythm Left axis deviation Low voltage QRS Inferior infarct , age undetermined Abnormal ECG When compared with ECG of 15-AUG-2020 05:24, MANUAL COMPARISON REQUIRED, DATA IS UNCONFIRMED Confirmed by JACQUELINE WITT, KASSANDRA ([id number]), desk editor YUNG MUNGUIA ([id number]) on 08/17/2020 8:26:33 AM Referred By: ANGEL Confirmed By:LILLY PHILLIPS MD
[2020-08-16] MEDS: Lisinopril 2.5 MG Tablet PO (06:18)
[2020-08-16] MEDS: Clopidogrel Bisulfate 75 MG Tablet PO (06:18)
[2020-08-16] MEDS: Aspirin E.C. 81 MG Tablet PO (06:18)
[2020-08-16 06:25] LABS: Bedside Glucose 144 mg/dL (70-110)
[2020-08-16 07:26] LABS: Absolute Lymphocyte Count 1.53 X10^3/uL (0.83-4.51); Absolute Neutrophil Count 4.8 X10^3/uL (2.0-7.7); Basophil# 0.07 X10^3/uL; Basophil% 0.9 % (0-1); Eosinophil# 0.26 X10^3/uL; Eosinophils% 3.4 % (0-5); Hematocrit 28.8 % (37-47); Hemoglobin 8.9 g/dL (12.0-15.0); Lymphocyte # 1.53 X10^3/ul (0.83-4.51); Lymphocyte % 20.2 % (19-41); Mean Corp Hgb Conc 30.9 g/dL (32-36); Mean Corpuscular Hgb 28.4 pg (27.0-32.0); Monocyte# 0.92 X10^3/uL; Monocyte% 12.1 % (0-10); NRBC Flagged by Analyzer 0 % (0-5); Neutrophil # 4.78 X10^3/uL (2.7-7.7); Platelet Count 291 K/mm3 (150-450); RBC Distribution Width CV 18.3 % (11.6-14.6); RBC Distribution Width SD 60.9 fl (35.1-43.9); RET-HE 31.9 pg (30-35); Red Blood Count 3.13 M/mm3 (4.2-5.4); White Blood Count 7.6 K/mm3 (4.4-11.0)
[2020-08-16 08:04] LABS: Anion Gap 5 (5-15); BUN 19 mg/dL (7-18); BUN/Creat Ratio 24.7 RATIO (10-20); Calcium,Total 9.3 mg/dL (8.5-10.1); Chloride 108 mmol/L (98-107); Creatinine, Serum 0.77 mg/dL (0.55-1.02); EST Glomerular Filtration Rate 80 mL/min (>60); Est Glom Filt Rate - Afr Amer 97 mL/min (>60); Glucose 135 mg/dL (74-106); LDH 234 U/L (84-246); Sodium Level 136 mmol/L (136-145)
[2020-08-16 08:55] LABS: Vitamin B12 597 pg/mL (211-911)
--- NOTE | 2020-08-16 09:20 | CASEMGMT ---
PRAVIN called [facility] and spoke with Laura in admissions regrading referral. PRAVIN also faxed referral. Await their response. Rajwinder Benavidez WE[employer] GRAPHIC DESIGNER DANIEL
--- NOTE | 2020-08-16 10:40 | CASEMGMT ---
Addendum entered by Rajwinder Benavidez 08/16/20 11:26: PRAVIN received a call from Delia at [facility] and they can take patient. She will start the pre-cert. SW notified patient. Plan: d/c to Jessica at [facility] pending patient being medically ready and pre-cert. Rajwinder Benavidez CONTACT [employer] BLOCKER AND CUTTERStewart SANCHEZ Original Note: SW received a call from Laura at [facility] and they are not in network with patient's insurance as she has [facility]. She told SW to tell patient they are so very sorry. SW notified patient and she requested a list of local SNF's. SW provided a list of SNF providers including quality and resource use data and consistent with the patient?s preferred geographic region, medical needs, and insurance network. She chose [facility]. PRAVIN told her SW will work on this. SW called and left a message for Delia at [facility] regarding referral. SW also faxed referral. Await response. Rajwinder Benavidez CONTACT [employer] BLOCK[employer] AND CUTTERStewart SANCHEZ
[2020-08-16] MEDS: Potassium Chloride Oral Tablet 20 MEQ 40 MEQ PO (12:18)
[2020-08-16] MEDS: Folic Acid 1 MG Tablet PO ×2 (12:18→17:03)
[2020-08-16] MEDS: Pantoprazole Sodium 40 MG Tablet PO (12:19)
[2020-08-16] MEDS: Carvedilol 3.125 MG TABLET PO ×2 (12:19→21:18)
[2020-08-16] MEDS: DULoxetine Hcl 30 MG Capsule PO ×2 (12:19→21:19)
[2020-08-16] MEDS: Enoxaparin 40 MG/0.4 ML Syringe SC (12:19)
[2020-08-16] MEDS: Mirabegron 25 MG TAB.ER.24H PO (12:19)
[2020-08-16] MEDS: Sucralfate 1 GM Tablet PO ×3 (12:19→21:18)
[2020-08-16] MEDS: Pramipexole Di-HCl 0.5 MG Tablet PO ×2 (12:22→21:19)
--- NOTE | 2020-08-16 12:24 | EKG12_ITS ---
Test Reason : CP ADMISSION Blood Pressure : / mmHG Vent. Rate : 102 BPM Atrial Rate : 102 BPM P-R Int : 114 ms QRS Dur : 080 ms QT Int : 350 ms P-R-T Axes : -12 -28 087 degrees QTc Int : 456 ms Sinus tachycardia Septal infarct (cited on or before 03-AUG-2018) Inferior infarct (cited on or before 03-AUG-2018) Abnormal ECG When compared with ECG of 29-JUL-2020 00:48, Vent. rate has increased BY 37 BPM Nonspecific T wave abnormality has replaced inverted T waves in Anterior leads Confirmed by JACQUELINE WITT, KASSANDRA ([id number]), technical writer and editor YUNG MUNGUIA ([id number]) on 08/17/2020 8:30:45 AM Referred By: RILEY Confirmed By:LILLY PHILLIPS MD
[2020-08-16] MEDS: Acetaminophen 325 MG Tablet 650 MG PO (12:56)
[2020-08-16] MEDS: oxyCODONE 5 MG Tablet PO (12:56)
[2020-08-16 13:06] LABS: Bedside Glucose 109 mg/dL (70-110)
[2020-08-16] MEDS: Modafinil 200 MG Tablet PO (13:22)
[2020-08-16] MEDS: Insulin Lispro 100 UNIT/ML INSULN.PEN SC ×2 (17:03→21:23)
[2020-08-16 17:25] LABS: Bedside Glucose 184 mg/dL (70-110)
--- NOTE | 2020-08-16 17:30 | PCM.PN.HOSP ---
Patient Problems: Active and Suspected Problems (Last Reviewed 08/14/20 @ 09:30 by Fatuma Antoine PA, PA) Chest pain (Acute) Objective: Did not have chest pain. Unfortunately her stress test was canceled because of unavailability of radionuclide isotope Patient had hypotension, blood pressure 91/53 and recovered. General: Alert, Oriented x3, Cooperative HEENT: Atraumatic, PERRLA, EOMI, Normocephalic Oral: No Gingival or Mucosal Lesions/ Ulcerations Neck: Supple, No JVD, Negative Carotid Bruits Lungs: Air entry diminished in bilateral lung bases. No crepitation/rhonchi Cardiovascular: Regular rate, Regular Rhythm, Normal S1, Normal S2, No murmurs Abdomen: Bowel Sounds Present, Soft, Non Tender, Non-Distended : No renal angle tenderness. No suprapubic tenderness. Extremities: No edema, Capillary Refill Less than 3 Seconds Skin: No rashes, No breakdown Musculoskeletal: No Tenderness to Palpation of Joints or Extremities Neurological: Cranial nerves II-XII grossly intact, mild weakness in both lower legs present since admission Psych/Mental Status: Normal Affect, Appropriate. Vitals/I&O's: Vital Signs Temp Pulse Resp BP Pulse Ox 97.7 F L 80 18 118/51 L 96 08/16/20 17:05 08/16/20 17:05 08/16/20 17:05 08/16/20 17:05 08/16/20 17:05 Oxygen Delivery Method Room Air Weight: 173 lb 4.533 oz Body Mass Index (BMI) 28.0 Finger Stick Blood Glucose 151 Intake and Output for Last 24 Hours 08/14/20 08/15/20 08/16/20 23:59 23:59 23:59 Intake Total 1854.5 / 1854.5 Output Total 0 / 0 200 / 200 Balance 1854.5 / 1854.5 -200 / -200 Laboratory Results 08/15/20 07:16: Potassium 3.4 L, Magnesium 1.8 08/15/20 16:44: POC Glucose 163 H 08/15/20 22:12: POC Glucose 169 H 08/16/20 06:15: POC Glucose 144 H 08/16/20 07:15: WBC 7.6, RBC 3.13 L, Hgb 8.9 L, Hct 28.8 L, MCV 92.0, MCH 28.4, MCHC 30.9 L, RDW Std Deviation 60.9 H, RDW Coeff of Yeimi 18.3 H, Plt Count 291, MPV 9.0, Immature Gran % (Auto) 0.400, Neut % (Auto) 63.0, Lymph % (Auto) 20.2, [place] % (Auto) 12.1 H, Eos % (Auto) 3.4, Baso % (Auto) 0.9, Absolute Neuts (auto) 4.8, Absolute Lymphs (auto) 1.53, Nucleated RBC % 0, Retic Count 3.10 H, Immature Retic Fraction 25.00 H, Retic Hgb Equivalent 31.9 08/16/20 07:15: Sodium 136, Potassium 4.0, Chloride 108 H, Carbon Dioxide 23.0, Anion Gap 5, BUN 19 H, Creatinine 0.77, Estim Creat Clear Calc 62.90, Est GFR (MDRD) Af Amer 97, Est GFR (MDRD) Non-Af 80, BUN/Creatinine Ratio 24.7 H, Glucose 135 H, Calcium 9.3, Lactate Dehydrogenase 234, Folate 15.60 08/16/20 07:15: Vitamin B12 597 08/16/20 07:15: Haptoglobin Pending 08/16/20 12:14: POC Glucose 109 08/16/20 17:01: POC Glucose 184 H Current Medications Acetaminophen (Acetaminophen 325 Mg Tablet) 650 mg PO Q6H PRN PRN PRN Reason: Pain Score 1-10/Temp > 100.7 F Last Admin: 08/16/20 12:56 Dose: 650 mg Documented by: Al Hydroxide/Mg Hydroxide (Mag Hydrox/Al Hydrox/Simeth 30 Ml Udc) 30 ml PO Q6H PRN PRN PRN Reason: Gastric Burning Albuterol Sulfate (Albuterol 2.5 Mg/3 Ml Vial.Neb.) 2.5 mg INHALATION Q2H PRN PRN PRN Reason: Dyspnea, wheezing Aspirin (Aspirin E.C. 81 Mg Tablet) 81 mg PO DAILY@0800 [facility] Last Admin: 08/16/20 06:18 Dose: 81 mg Documented by: Atorvastatin Calcium (Atorvastatin Calcium 40 Mg Tablet) 40 mg PO QHS [facility] Last Admin: 08/15/20 22:14 Dose: 40 mg Documented by: Carvedilol (Carvedilol 3.125 Mg Tablet) 3.125 mg PO BID [facility] Last Admin: 08/16/20 12:19 Dose: 3.125 mg Documented by: Cefixime (Cefixime 400 Mg Capsule) 400 mg PO DAILY [facility] Last Admin: 08/16/20 12:18 Dose: Not Given Documented by: Clopidogrel Bisulfate (Clopidogrel Bisulfate 75 Mg Tablet) 75 mg PO DAILY [facility] Last Admin: 08/16/20 06:18 Dose: 75 mg Documented by: Dextrose (Dextrose 50%-Water 25 Gm/50 Ml Disp.Syrin) 0 gm IV X1 PRN; Protocol PRN Reason: Hypoglycemia Dicyclomine HCl (Dicyclomine 10 Mg Capsule) 20 mg PO BID PRN PRN PRN Reason: abdominal discomfort Last Admin: 08/15/20 11:34 Dose: 20 mg Documented by: Duloxetine HCl (Duloxetine Hcl 30 Mg Capsule) 30 mg PO BID [facility] Last Admin: 08/16/20 12:19 Dose: 30 mg Documented by: Enoxaparin Sodium (Enoxaparin 40 Mg/0.4 Ml Syringe) 40 mg SC DAILY [facility] Last Admin: 08/16/20 12:19 Dose: 40 mg Documented by: Estrogens Conj/Medroxyprogest Acet (Estrogen,Con/M-Progest Acet 1 Tab Tablet) tab PO DAILY [facility] Folic Acid (Folic Acid 1 Mg Tablet) 1 mg PO BIDCM [facility] Last Admin: 08/16/20 17:03 Dose: 1 mg Documented by: Glucagon (Glucagon 1 Mg/Ml Syringe) 1 mg IM .X1 PRN PRN Reason: Hypoglycemia Guaifenesin (Guaifenesin 10 Ml Udc (200mg/10ml)) 20 ml PO Q4H PRN PRN PRN Reason: COUGH Hydralazine HCl (Hydralazine 20 Mg/Ml Vial) 10 mg IV Q4H PRN PRN PRN Reason: SBP > 160 Insulin Human Lispro (Insulin Lispro 100 Unit/Ml Insuln.Pen) 0 unit SC [facility]; Protocol Last Admin: 08/16/20 17:03 Dose: 1 u Documented by: Isosorbide Mononitrate (Isosorbide Mononitrate 30 Mg Tablet) 30 mg PO DAILY [facility] Last Admin: 08/16/20 12:16 Dose: Not Given Documented by: Lisinopril (Lisinopril 2.5 Mg Tablet) 2.5 mg PO DAILY [facility] Last Admin: 08/16/20 06:18 Dose: 2.5 mg Documented by: Mirabegron (Mirabegron 25 Mg Tab.Er.24h) 25 mg PO DAILY [facility] Last Admin: 08/16/20 12:19 Dose: 25 mg Documented by: Modafinil (Modafinil 200 Mg Tablet) 200 mg PO DAILY [facility] Last Admin: 08/16/20 13:22 Dose: 200 mg Documented by: Morphine Sulfate (Morphine 2 Mg/Ml Syringe) 2 mg IV Q3H PRN PRN PRN Reason: Pain Score 6-10 Last Admin: 08/16/20 16:01 Dose: 2 mg Documented by: Nitroglycerin (Nitroglycerin (Inpatient Use) 0.4 Mg Tab.Subl) 0.4 mg SL Q5M PRN PRN Reason: CARDIAC/CHEST PAIN Oxycodone HCl (Oxycodone 5 Mg Tablet) 5 mg PO Q4H PRN PRN PRN Reason: Pain Score 4-5 Last Admin: 08/16/20 12:56 Dose: 5 mg Documented by: Pantoprazole Sodium (Pantoprazole Sodium 40 Mg Tablet) 40 mg PO DAILY [facility] Last Admin: 08/16/20 12:19 Dose: 40 mg Documented by: Potassium Chloride (Potassium Chloride Oral Tablet 20 Meq) 40 meq PO DAILYCM [facility] Last Admin: 08/16/20 12:18 Dose: 40 meq Documented by: Pramipexole Dihydrochloride (Pramipexole Di-Hcl 0.5 Mg Tablet) 0.5 mg PO LUNCH [facility] Last Admin: 08/16/20 12:22 Dose: 0.5 mg Documented by: Pramipexole Dihydrochloride (Pramipexole Di-Hcl 0.5 Mg Tablet) 0.5 mg PO QHS [facility] Last Admin: 08/15/20 22:14 Dose: 0.5 mg Documented by: Prochlorperazine Edisylate (Prochlorperazine 10 Mg/2 Ml Vial) 5 mg IV Q4H PRN PRN PRN Reason: Breakthrough Nausea/Vomiting Last Admin: 08/16/20 08:12 Dose: 5 mg Documented by: Psyllium Hydrophilic Mucilloid (Psyllium 1 Packet) 1 packet PO DAILY PRN PRN PRN Reason: Constipation Senna/Docusate Sodium (Senna/Docusate Sodium 1 Tablet) 2 tablet PO BID PRN PRN PRN Reason: Constipation Sodium Chloride (0.9% Saline Lock 10 Ml Syringe) 10 - 40 ml IV UD PRN PRN Reason: SALINE FLUSH Last Admin: 08/16/20 16:01 Dose: 10 ml Documented by: Sucralfate (Sucralfate 1 Gm Tablet) 1 gm PO 1HR_ACHS RANDI Last Admin: 08/16/20 16:05 Dose: 1 gm Documented by: Throat Lozenges (Benzocaine/Menthol 1 Lozenge) 1 lozenge MUCOUS MEM Q2H PRN PRN PRN Reason: SORE THROAT Trazodone HCl (Trazodone 50 Mg Tablet) 25 mg PO QHS PRN PRN Reason: insomnia STROKE Vital Signs/Narrative: Vital Signs Temp Pulse Resp BP BP Pulse Ox 08/16/20 17:05 97.7 F L 80 18 118/51 L 96 08/16/20 15:54 109/40 L 08/16/20 15:00 82 Medical Necessity - Tobacco Use Smoking Status: Current every day smoker Tobacco Use: Cigarettes, Cigars Assessment/Plan All Active Problems (Last Reviewed 08/14/20 @ 09:30 by Fatuma LOPEZ, PA) Chest pain (Acute) patient is admitted for atypical chest pain yesterday with radiation to left arm along with history of dyspnea on exertion for 1 to 2 months. Patient serial troponin enzymes are negative. Blood pressure was elevated when she came in but was decreased to 108/52 and 94/53. K was low 3.3 and replaced. H&H 8.0/25 and given 200 mg of IV iron sucrose. Atypical chest pain with history of coronary artery disease and PCI in the past: Stress test, Lexiscan rescheduled for tomorrow a.m. Hypokalemia: Potassium corrected. Magnesium 1.8. Chronic normocytic normochromic anemia: Patient denies any GI bleed history. Iron work-up was done and B12 folic acid normal level. Iron work-up is suggestive of iron deficiency anemia with iron saturation 12.6%, ferritin 19, low iron 43. Anemia work-up negative for hemolytic anemia. Patient had iron sucrose IV. Hypertension: Patient mainly due to medications. Patient was on Vistaril large dose 50 mg every 6 hourly which was stopped. Patient on other antihypertensive medication, dose adjusted eluding Coreg and lisinopril. Diabetes mellitus type 2: Patient had hypoglycemic episode in the morning and was corrected with D50. Other comorbidities include multiple sclerosis and is on modafinil and teriflunomide. Patient has chronic systolic heart failure, Takotsubo syndrome, ischemic cardiomyopathy. Anxiety and depression, restless leg syndrome, COPD, IBS with chronic diarrhea, GERD and BRYAN OBSV E&M: [id number] Subsequent observation care L2
[2020-08-16] MEDS: Atorvastatin Calcium 40 MG Tablet PO (21:19)
[2020-08-16 22:36] LABS: Bedside Glucose 166 mg/dL (70-110)
[2020-08-16] MEDS: traZODone 50 MG Tablet 25 MG PO (23:11)
[2020-08-17] VITALS (11 sets, daily range): BP systolic 106–147; BP diastolic 48–69; PULSE 72–101; RESP 15–16; TEMP 36.6–37.2; O2SAT 92–99
--- NOTE | 2020-08-17 00:16 | NURSING ---
PT IS NPO FOR STRESS TEST
[2020-08-17] MEDS: Morphine 2 MG/ML Syringe IV ×3 (04:27→15:44)
[2020-08-17] MEDS: 0.9% Saline Lock 10 ML Syringe IV ×3 (04:28→15:45)
--- NOTE | 2020-08-17 05:55 | EKG12_ITS ---
Test Reason : AM EKG Blood Pressure : / mmHG Vent. Rate : 074 BPM Atrial Rate : 074 BPM P-R Int : 148 ms QRS Dur : 094 ms QT Int : 400 ms P-R-T Axes : 041 -30 096 degrees QTc Int : 444 ms Sinus rhythm with Premature atrial complexes Left axis deviation Low voltage QRS Septal infarct , age undetermined Inferior infarct , age undetermined Abnormal ECG When compared with ECG of 16-AUG-2020 12:37, MANUAL COMPARISON REQUIRED, DATA IS UNCONFIRMED Confirmed by JACQUELINE WITT, KASSANDRA ([id number]), technical writer and editor YUNG MUNGUIA ([id number]) on 08/20/2020 10:06:23 A M Referred By: DR LIN Confirmed By:LILLY PHILLIPS MD
[2020-08-17] MEDS: Aspirin E.C. 81 MG Tablet PO (06:17)
[2020-08-17 06:46] LABS: Bedside Glucose 127 mg/dL (70-110)
[2020-08-17] MEDS: proCHLORPERazine 10 MG/2 ML Vial 5 MG IV (09:05)
--- NOTE | 2020-08-17 09:23 | US_ITS ---
STUDY: RENAL ULTRASOUND - COMPLETE REASON FOR EXAM: Female, 64 years old. Right renal angle pain -- recent UTI/PYELONEPHRITIS? TECHNIQUE: Ultrasound evaluation of the kidneys was performed with real-time and static barger-scale imaging. COMPARISON: None. FINDINGS: RIGHT KIDNEY: Normal location of the right kidney, which is normal in size. The right kidney measures 10.1 cm x 4.9 cm x 4.8 cm. There is a normal cortex of the right kidney. The renal cortex measures 2.3 cm. There is no right renal mass or cyst. There are no right renal calculi. There is no right hydronephrosis. DISTAL RIGHT URETER: There is non-visualization of the distal right ureter. There is no demonstrated right ureterovesical junction calculus. There is a visualized right ureteral jet. LEFT KIDNEY: Normal location of the left kidney, which is normal in size. The left kidney measures 11.7 cm x 5.9 cm x 6.9 cm. There is a normal cortex of the left kidney. The renal cortex measures 1.6 cm. There is no left renal mass or cyst. There are no left renal calculi. There is no left hydronephrosis. DISTAL LEFT URETER: There is non-visualization of the distal left ureter. There is no demonstrated left ureterovesical junction calculus. There is a visualized left ureteral jet. BLADDER: The distended urinary bladder has a volume of 110 ml. There is a normal wall thickness of the distended urinary bladder. There is no demonstrated mass within the urinary bladder. There are no demonstrated bladder calculi. US/Kidney and Bladder IMPRESSION: Normal ultrasound of the kidneys and urinary bladder. Electronically Signed: Daljit Jordan MD at 13:16 EDT , Service support ,
[2020-08-17 09:28] LABS: Haptoglobin 222 mg/dL (37-355)
[2020-08-17 10:02] LABS: Absolute Lymphocyte Count 0.91 X10^3/uL (0.83-4.51); Absolute Neutrophil Count 6.7 X10^3/uL (2.0-7.7); Basophil# 0.06 X10^3/uL; Basophil% 0.7 % (0-1); Eosinophil# 0.14 X10^3/uL; Eosinophils% 1.6 % (0-5); Hemoglobin 8.3 g/dL (12.0-15.0); Lymphocyte # 0.91 X10^3/ul (0.83-4.51); Lymphocyte % 10.4 % (19-41); Mean Corp Hgb Conc 31.9 g/dL (32-36); Mean Corpuscular Hgb 28.4 pg (27.0-32.0); Mean Platelet Vol. 9.1 fl (6.2-12.0); Monocyte# 0.91 X10^3/uL; Monocyte% 10.4 % (0-10); NRBC Flagged by Analyzer 0 % (0-5); Neutrophil # 6.65 X10^3/uL (2.7-7.7); Neutrophil % 76.4 % (47-70); Platelet Count 254 K/mm3 (150-450); RBC Distribution Width CV 17.7 % (11.6-14.6); RBC Distribution Width SD 57.3 fl (35.1-43.9); Red Blood Count 2.92 M/mm3 (4.2-5.4); White Blood Count 8.7 K/mm3 (4.4-11.0)
[2020-08-17 10:27] LABS: Anion Gap 5 (5-15); BUN 15 mg/dL (7-18); BUN/Creat Ratio 19.7 RATIO (10-20); Calcium,Total 9.4 mg/dL (8.5-10.1); Chloride 104 mmol/L (98-107); Creatinine, Serum 0.76 mg/dL (0.55-1.02); EST Glomerular Filtration Rate 81 mL/min (>60); Est Glom Filt Rate - Afr Amer 98 mL/min (>60); Estimated Creatinine Clearance 63.73 ml/min; Glucose 205 mg/dL (74-106); Magnesium 1.7 mg/dL (1.6-2.6); Potassium 4.2 mmol/L (3.5-5.1); Sodium Level 131 mmol/L (136-145)
--- NOTE | 2020-08-17 10:51 | DCINST_ITS ---
- Discharge Diagnoses Current Active Problems: Current Active and Chronic Problems (Last Reviewed 08/14/20 @ 09:30 by Fatuma LOPEZ, PA) Chest pain (Acute) Anemia (Chronic) Irritable bowel syndrome with diarrhea (Chronic) Hyperlipemia (Chronic) Pancreatitis (Chronic) Major depression (Chronic) Atherosclerotic heart disease of [place] coronary artery without angina pectoris (Chronic) History of ST elevation myocardial infarction (STEMI) (Chronic) History of coronary artery stent placement (Chronic 04/08/16) PCI-aspiration [id number] LAD 3.0 mm x 18 mm Resolute Stent and POBA-Mid D2 04/08/16 Ischemic cardiomyopathy (Chronic) Chronic systolic (congestive) heart failure (Chronic) Essential (primary) hypertension (Chronic) Paroxysmal atrial fibrillation (Chronic) Nicotine abuse (Chronic) You will use the following diet at home:: Calorie/Carbohydrate Controlled (specify 1200, 1400, etc), Cardiac Discharge Activity: May Not Drive Weight Bearing Status: Weight bearing as tolerated Call your doctor if you observe: Fever of 101 or Higher, Numbness or Tingling, Change in Color, Inability to urinate, Inability to have a bowel movement, Using more than one pad per hour, Shortness of breath, Dizziness, Fainting spells, Swelling in the ankles, Chest pain, Prolonged hiccoughing, Increased palpitations (irregular heartbeat), Calf discomfort, Uncontrolled pain Allergies/Adverse Reactions: Allergies indomethacin [From Indocin] Allergy (Verified 08/14/20 09:05) Hives indomethacin sodium [From Indocin] Allergy (Verified 08/14/20 09:05) Hives iodine Allergy (Verified 08/14/20 09:05) Hives propoxyphene napsylate [From Darvocet-N] Allergy (Verified 08/14/20 09:05) Out of control aripiprazole [From Abilify] Adverse Reaction (Verified 08/14/20 09:05) Other drool uncontrollably aspirin Adverse Reaction (Verified 08/14/20 09:05) Upset Stomach when taken in high doses clindamycin Adverse Reaction (Verified 08/14/20 09:05) Nausea metformin Adverse Reaction (Verified 08/14/20 09:05) Other IT CAUSES MY KIDNEYS TO DO WEIRD THINGS sumatriptan [From Imitrex] Adverse Reaction (Verified 08/14/20 09:05) Vomiting Medications to take at Discharge Aspirin E.C. [Ecotrin] 81 mg PO DAILY@0800 10/21/16 Potassium Chloride Oral Tablet [K-Dur] 20 meq PO DAILY 10/06/17 Albuterol Inhaler [Ventolin Hfa] 2 puff INHALATION Q6H PRN PRN 10/23/17 ropinirole 0.5 mg tablet 1 mg PO QHS tablet 08/21/19 nitroglycerin 0.4 mg sublingual tablet 0.4 mg SL ONCE #25 tablet 08/23/19 Estrogen,Con/M-Progest Acet [Prempro 0.625-2.5 MG Tablet] 1 tablet PO DAILY 09/20/19 Teriflunomide [Aubagio] 14 mg PO DAILY 09/20/19 Modafinil [Provigil] 200 mg PO DAILY 12/12/19 Pioglitazone HCl 30 mg PO DAILY 12/25/19 Ropinirole HCl 1 mg PO LUNCH 12/25/19 dicyclomine 20 mg tablet 20 mg PO BID PRN #180 tablet 03/15/20 rosuvastatin 20 mg tablet 20 mg PO QHS #30 tablet 04/16/20 mirabegron 25 mg tablet,extended release 24 hr 25 mg PO Q24H #60 tablet 05/11/20 clopidogrel 75 mg tablet 75 mg PO DAILY #90 tablet 05/14/20 trazodone 50 mg tablet 50 mg PO QHS PRN #30 tablet 06/26/20 pantoprazole 40 mg tablet,delayed release 40 mg PO DAILY #30 tablet 07/25/20 Acetaminophen 1,000 mg PO TID PRN #1 tablet 07/29/20 duloxetine 30 mg capsule,delayed release 30 mg PO BID #60 cap 08/02/20 Ondansetron [Zofran Odt] 4 mg PO Q8H PRN PRN #10 tablet 08/04/20 isosorbide mononitrate 30 mg tablet,extended release 24 hr 30 mg PO DAILY #30 tablet 08/06/20 cefixime 400 mg capsule 400 mg PO DAILY 14 Days #14 cap 08/07/20 sucralfate 1 gram tablet 1 gm PO 4X/DAY #120 tablet 08/07/20 proMETHazine tablet [Phenergan tablet] 25 mg PO Q6H PRN PRN #10 tab 08/08/20 blood sugar diagnostic See Rx Instructions .ROUTE .MEDSUPPLY #100 each 08/10/20 blood-glucose meter See Rx Instructions .ROUTE .MEDSUPPLY #1 each 08/10/20 ondansetron HCl 8 mg tablet 8 mg PO Q8H PRN PRN #20 tab 08/10/20 Carvedilol [Coreg (Beta Marielle)] 6.25 mg PO BID 08/14/20 Ascorbic Acid [Fruit C-500] 500 mg PO DAILY #30 tab.chew 08/17/20 Ferrous Sulfate 325 mg PO DAILY #30 tablet 08/17/20 Glimepiride [Amaryl] 4 mg PO BID #0 08/17/20 Lisinopril 5 mg PO DAILY #30 tablet 08/17/20 The following prescriptions were given: Ferrous Sulfate 325 mg PO DAILY #30 tablet Transmission Status: Received by [place] [id number] Ascorbic Acid [Fruit C-500] 500 mg PO DAILY #30 tab.chew Transmission Status: Received by [place] [id number] Primary Care Physician: Tom Sherman MD [Primary Care Provider] - Please follow up with your Primary Care Physician in: IN 2 WEEKS Test Results: Test results from this visit will be discussed in further detail at your follow- up appointment, if applicable. Please Follow Up With: Elias Butler MD When: as scheduled Please Follow Up With: Gautam Elias MD When: for MS
[2020-08-17] MEDS: Pantoprazole Sodium 40 MG Tablet PO (10:56)
[2020-08-17] MEDS: Sucralfate 1 GM Tablet PO ×3 (10:56→20:30)
[2020-08-17] MEDS: Lisinopril 2.5 MG Tablet PO (10:56)
[2020-08-17] MEDS: Potassium Chloride Oral Tablet 20 MEQ 40 MEQ PO (10:57)
[2020-08-17] MEDS: DULoxetine Hcl 30 MG Capsule PO ×2 (10:57→20:32)
[2020-08-17] MEDS: Isosorbide Mononitrate 30 MG Tablet PO (10:57)
[2020-08-17] MEDS: Carvedilol 3.125 MG TABLET PO ×2 (10:57→20:31)
[2020-08-17] MEDS: Mirabegron 25 MG TAB.ER.24H PO (10:57)
[2020-08-17] MEDS: Folic Acid 1 MG Tablet PO ×2 (10:58→17:43)
[2020-08-17] MEDS: TERIFLUNOMIDE 14 MG PO (10:58)
--- NOTE | 2020-08-17 11:11 | PCM.TXEXTCAR ---
- Diet 08/17/20 08:59 Diet: Clear Liquid Is pt able to select menu?: Yes - Routine Orders/Code Status Suppository Type: Dulcolax 10mg Suppository Frequency: Daily PRN Code Status: Full Code - Wound(s) face Wound Type: Scabs - Therapies Weight Bearing: Weight bearing as tolerated Extremity Affected:: Bilateral Lower Physical Therapy: Eval and Treat Occupational Therapy: Eval and Treat Speech Therapy: Eval and Treat - Allergies/Procedures Done in Hospital Allergies/Adverse Reactions: Allergies indomethacin [From Indocin] Allergy (Verified 08/14/20 09:05) Hives indomethacin sodium [From Indocin] Allergy (Verified 08/14/20 09:05) Hives iodine Allergy (Verified 08/14/20 09:05) Hives propoxyphene napsylate [From Darvocet-N] Allergy (Verified 08/14/20 09:05) Out of control aripiprazole [From Abilify] Adverse Reaction (Verified 08/14/20 09:05) Other drool uncontrollably aspirin Adverse Reaction (Verified 08/14/20 09:05) Upset Stomach when taken in high doses clindamycin Adverse Reaction (Verified 08/14/20 09:05) Nausea metformin Adverse Reaction (Verified 08/14/20 09:05) Other IT CAUSES MY KIDNEYS TO DO WEIRD THINGS sumatriptan [From Imitrex] Adverse Reaction (Verified 08/14/20 09:05) Vomiting - Type of Care/Length of Stay Estimated LOS: Convalescent Care Less Than 30 days Type of Care Needed: Skilled Rehab Potential: Good Prognosis: Good - Additional Orders/Day of Discharge Day of Discharge: 08/17/20 - Follow Up Care Primary Care Physician: Tom Sherman MD [Primary Care Provider] - Please follow up with your Primary Care Physician in: IN 2 WEEKS Please Follow Up With: Elias Butler MD When: as scheduled Please Follow Up With: Gautam Elias MD When: for MS
--- NOTE | 2020-08-17 11:12 | DS.PCM_ITS ---
Discharge Date and Diagnosis - Problem List Patient Problems: Active and Suspected Problems (Last Reviewed 08/14/20 @ 09:30 by Fatuma LOPEZ PA) Chest pain (Acute) Date of Admission: 08/14/20 Date of Discharge: 08/17/20 - Primary Discharge Diagnosis Acute Problems: Active Problems (Last Reviewed 08/14/20 @ 09:30 by Fatuma LOPEZ PA) Chest pain (Acute) - Secondary Discharge Diagnosis Chronic Problems: Chronic Problems (Last Reviewed 08/14/20 @ 09:30 by Fatuma LOPEZ PA) Anemia (Chronic) Irritable bowel syndrome with diarrhea (Chronic) Hyperlipemia (Chronic) Pancreatitis (Chronic) Major depression (Chronic) Atherosclerotic heart disease of [place] coronary artery without angina pectoris (Chronic) History of ST elevation myocardial infarction (STEMI) (Chronic) Old anterior wall myocardial infarction (Chronic 04/08/16) History of coronary artery stent placement (Chronic 04/08/16) PCI-aspiration [id number] LAD 3.0 mm x 18 mm Resolute Stent and POBA-Mid D2 04/08/16 Ischemic cardiomyopathy (Chronic) Chronic systolic (congestive) heart failure (Chronic) Essential (primary) hypertension (Chronic) Typical atrial flutter (Chronic) Paroxysmal atrial fibrillation (Chronic) Nicotine abuse (Chronic) Hospital Course and Treatment Imaging Results: 08/17/20 06:15 Nuclear Stress Test - Chemical [NM] Urgent 08/17/20 09:23 Kidney and Bladder [US] Urgent Operations: None Summary of Care Provided: The patient is a 64 year old F admitted for atypical chest pain yesterday with radiation to left arm along with history of dyspnea on exertion for 1 to 2 months. Patient serial troponin enzymes are negative. Blood pressure was elevated when she came in but was decreased to 108/52 and 94/53. K was low 3.3 and replaced. H&H 8.0/25 and given 200 mg of IV iron sucrose. Atypical chest pain with history of coronary artery disease and PCI in the past: Stress test, Lexiscan nuclear stress test reported no significant acute ischemia Hypokalemia: Potassium corrected. Magnesium 1.8. Chronic normocytic normochromic anemia: Patient denies any GI bleed history. Iron work-up was done and B12 folic acid normal level. Iron work-up is suggestive of iron deficiency anemia with iron saturation 12.6%, ferritin 19, l ow iron 43. Anemia work-up negative for hemolytic anemia. Patient had iron sucrose IV. UTI/pyelonephritis ruled out: Patient does not have a UTI. She already had 12 days of antibiotic including Keflex and Suprax prior to admission. Her previous 2 urine culture shows mixed organism contamination. UA shows WBC 5-10, squamous cell 0?5, LE 25 nitrite negative. Her previous UA were similar 5-10 WBC. Renal bladder ultrasound was done as patient complained of right renal angle pain and reported normal. Patient does not need to take antibiotic further therefore Suprax discontinued. Hypertension: Patient mainly due to medications. Patient was on Vistaril large dose 50 mg every 6 hourly which was stopped. Patient on other antihypertensive medication, dose adjusted eluding Coreg and lisinopril. Diabetes mellitus type 2: Patient had hypoglycemic episode in the morning and was corrected with D50. Other comorbidities include multiple sclerosis and is on modafinil and teriflunomide. Patient has increased loss of equilibrium, postural instability and fall due to MS. I did peer to peer and accepted for alf. Patient has chronic systolic heart failure, Takotsubo syndrome, ischemic cardiomyopathy. Anxiety and depression, restless leg syndrome, COPD, IBS with chronic diarrhea, GERD and BRYAN Discharge medication reconciliation done. Discharge follow-up instructions completed. Discharge process discussed with the patient and all questions were answered to patient's satisfaction. Patient is discharged to SNF Total time spent, exact 35 minutes on discharge meds reconciliation, examination, coordination of care with nurses and ancillary staff, review of imaging and blood test and discussion with the patient on follow-up instructions Clinical Impression(s) from Imaging Studies Chest X-Ray 08/14/20 18:56 IMPRESSION: No acute cardiopulmonary pathology Renal Ultrasound 08/17/20 09:23 IMPRESSION: Normal ultrasound of the kidneys and urinary bladder. Patient Problems: Active and Suspected Problems (Last Reviewed 08/14/20 @ 09:30 by Fatuma LOPEZ, PA) Chest pain (Acute) Objective: Patient complain of increased frequency and urgency. Denies burning micturition. Had recurrent ER visit on 08/04 for flank pain where CT abdomen was done which did not show any new nephritis and reported normal right and left kidney. Patient states he has history of pyelonephritis and was given a dose of Rocephin and discharged on Keflex. Patient again came to ER on 08/08 for similar problem and will advised to follow with PCP who changed antibiotic to Suprax. General: Alert, Oriented x3, Cooperative HEENT: Atraumatic, PERRLA, EOMI, Normocephalic Oral: No Gingival or Mucosal Lesions/ Ulcerations Neck: Supple, No JVD, Negative Carotid Bruits Lungs: Air entry diminished in bilateral lung bases. No crepitation/rhonchi Cardiovascular: Regular rate, Regular Rhythm, Normal S1, Normal S2, No murmurs Abdomen: Bowel Sounds Present, Soft, Non Tender, Non-Distended : No renal angle tenderness. No suprapubic tenderness. No dysuria but increased frequency and urgency Extremities: No edema, Capillary Refill Less than 3 Seconds Skin: No rashes, No breakdown Musculoskeletal: No Tenderness to Palpation of Joints or Extremities Neurological: Cranial nerves II-XII grossly intact, mild weakness in both lower legs present since admission Psych/Mental Status: Normal Affect, Appropriate. - Physical Exam Vitals/I&O's: Vital Signs Temp Pulse Resp BP Pulse Ox 98.6 F 87 15 147/69 H 94 08/17/20 06:15 08/17/20 09:23 08/17/20 06:15 08/17/20 09:13 08/17/20 06:15 Oxygen Delivery Method Room Air Weight: 173 lb 11.588 oz Body Mass Index (BMI) 28.0 Finger Stick Blood Glucose 151 Intake and Output for Last 24 Hours 08/15/20 08/16/20 08/17/20 23:59 23:59 23:59 Intake Total 1854.5 / 1854.5 760 / 760 Output Total 0 / 0 300 / 300 Balance 1854.5 / 1854.5 460 / 460 Laboratory Results 08/16/20 07:15: Haptoglobin 222 08/16/20 12:14: POC Glucose 109 08/16/20 17:01: POC Glucose 184 H 08/16/20 21:22: POC Glucose 166 H 08/17/20 06:19: POC Glucose 127 H 08/17/20 09:17: WBC 8.7, RBC 2.92 L, Hgb 8.3 L, Hct 26.0 L, MCV 89.0, MCH 28.4, MCHC 31.9 L, RDW Std Deviation 57.3 H, RDW Coeff of Yeimi 17.7 H, Plt Count 254, MPV 9.1, Immature Gran % (Auto) 0.500, Neut % (Auto) 76.4 H, Lymph % (Auto) 10.4 L, Reynolds % (Auto) 10.4 H, Eos % (Auto) 1.6, Baso % (Auto) 0.7, Absolute Neuts (auto) 6.7, Absolute Lymphs (auto) 0.91, Nucleated RBC % 0 08/17/20 09:17: Sodium 131 L, Potassium 4.2, Chloride 104, Carbon Dioxide 22.0, Anion Gap 5, BUN 15, Creatinine 0.76, Estim Creat Clear Calc 63.73, Est GFR (MDRD) Af Amer 98, Est GFR (MDRD) Non-Af 81, BUN/Creatinine Ratio 19.7, Glucose 205 H, Calcium 9.4, Magnesium 1.7 Current Medications Acetaminophen (Acetaminophen 325 Mg Tablet) 650 mg PO Q6H PRN PRN PRN Reason: Pain Score 1-10/Temp > 100.7 F Last Admin: 08/16/20 12:56 Dose: 650 mg Documented by: Al Hydroxide/Mg Hydroxide (Mag Hydrox/Al Hydrox/Simeth 30 Ml Udc) 30 ml PO Q6H PRN PRN PRN Reason: Gastric Burning Albuterol Sulfate (Albuterol 2.5 Mg/3 Ml Vial.Neb.) 2.5 mg INHALATION Q2H PRN PRN PRN Reason: Dyspnea, wheezing Aspirin (Aspirin E.C. 81 Mg Tablet) 81 mg PO DAILY@0800 [facility] Last Admin: 08/17/20 06:17 Dose: 81 mg Documented by: Atorvastatin Calcium (Atorvastatin Calcium 40 Mg Tablet) 40 mg PO QHS [facility] Last Admin: 08/16/20 21:19 Dose: 40 mg Documented by: Carvedilol (Carvedilol 3.125 Mg Tablet) 3.125 mg PO BID [facility] Last Admin: 08/16/20 21:18 Dose: 3.125 mg Documented by: Cefixime (Cefixime 400 Mg Capsule) 400 mg PO DAILY [facility] Last Admin: 08/16/20 12:18 Dose: Not Given Documented by: Clopidogrel Bisulfate (Clopidogrel Bisulfate 75 Mg Tablet) 75 mg PO DAILY [facility] Last Admin: 08/16/20 06:18 Dose: 75 mg Documented by: Dextrose (Dextrose 50%-Water 25 Gm/50 Ml Disp.Syrin) 0 gm IV X1 PRN; Protocol PRN Reason: Hypoglycemia Dicyclomine HCl (Dicyclomine 10 Mg Capsule) 20 mg PO BID PRN PRN PRN Reason: abdominal discomfort Last Admin: 08/15/20 11:34 Dose: 20 mg Documented by: Duloxetine HCl (Duloxetine Hcl 30 Mg Capsule) 30 mg PO BID [facility] Last Admin: 08/16/20 21:19 Dose: 30 mg Documented by: Enoxaparin Sodium (Enoxaparin 40 Mg/0.4 Ml Syringe) 40 mg SC DAILY [facility] Last Admin: 08/16/20 12:19 Dose: 40 mg Documented by: Estrogens Conjugated (Estrogens,Conj. 0.625 Mg Tablet) 0.625 mg PO DAILY [facility] Folic Acid (Folic Acid 1 Mg Tablet) 1 mg PO BIDCM [facility] Last Admin: 08/16/20 17:03 Dose: 1 mg Documented by: Glucagon (Glucagon 1 Mg/Ml Syringe) 1 mg IM .X1 PRN PRN Reason: Hypoglycemia Guaifenesin (Guaifenesin 10 Ml Udc (200mg/10ml)) 20 ml PO Q4H PRN PRN PRN Reason: COUGH Hydralazine HCl (Hydralazine 20 Mg/Ml Vial) 10 mg IV Q4H PRN PRN PRN Reason: SBP > 160 Insulin Human Lispro (Insulin Lispro 100 Unit/Ml Insuln.Pen) 0 unit SC ACHS [facility]; Protocol Last Admin: 08/17/20 06:19 Dose: Not Given Documented by: Isosorbide Mononitrate (Isosorbide Mononitrate 30 Mg Tablet) 30 mg PO DAILY [facility] Last Admin: 08/16/20 12:16 Dose: Not Given Documented by: Lisinopril (Lisinopril 2.5 Mg Tablet) 2.5 mg PO DAILY [facility] Last Admin: 08/16/20 06:18 Dose: 2.5 mg Documented by: Medroxyprogesterone Acetate (Medroxyprogesterone 2.5 Mg Tablet) 2.5 mg PO DAILY [facility] Mirabegron (Mirabegron 25 Mg Tab.Er.24h) 25 mg PO DAILY [facility] Last Admin: 08/16/20 12:19 Dose: 25 mg Documented by: Modafinil (Modafinil 200 Mg Tablet) 200 mg PO DAILY [facility] Last Admin: 08/16/20 13:22 Dose: 200 mg Documented by: Morphine Sulfate (Morphine 2 Mg/Ml Syringe) 2 mg IV Q3H PRN PRN PRN Reason: Pain Score 6-10 Last Admin: 08/17/20 09:06 Dose: 2 mg Documented by: Nitroglycerin (Nitroglycerin (Inpatient Use) 0.4 Mg Tab.Subl) 0.4 mg SL Q5M PRN PRN Reason: CARDIAC/CHEST PAIN Oxycodone HCl (Oxycodone 5 Mg Tablet) 5 mg PO Q4H PRN PRN PRN Reason: Pain Score 4-5 Last Admin: 08/16/20 12:56 Dose: 5 mg Documented by: Pantoprazole Sodium (Pantoprazole Sodium 40 Mg Tablet) 40 mg PO DAILY [facility] Last Admin: 08/16/20 12:19 Dose: 40 mg Documented by: Potassium Chloride (Potassium Chloride Oral Tablet 20 Meq) 40 meq PO DAILYCM [facility] Last Admin: 08/16/20 12:18 Dose: 40 meq Documented by: Pramipexole Dihydrochloride (Pramipexole Di-Hcl 0.5 Mg Tablet) 0.5 mg PO LUNCH [facility] Last Admin: 08/16/20 12:22 Dose: 0.5 mg Documented by: Pramipexole Dihydrochloride (Pramipexole Di-Hcl 0.5 Mg Tablet) 0.5 mg PO QHS [facility] Last Admin: 08/16/20 21:19 Dose: 0.5 mg Documented by: Prochlorperazine Edisylate (Prochlorperazine 10 Mg/2 Ml Vial) 5 mg IV Q4H PRN PRN PRN Reason: Breakthrough Nausea/Vomiting Last Admin: 08/17/20 09:05 Dose: 5 mg Documented by: Psyllium Hydrophilic Mucilloid (Psyllium 1 Packet) 1 packet PO DAILY PRN PRN PRN Reason: Constipation Senna/Docusate Sodium (Senna/Docusate Sodium 1 Tablet) 2 tablet PO BID PRN PRN PRN Reason: Constipation Sodium Chloride (0.9% Saline Lock 10 Ml Syringe) 10 - 40 ml IV UD PRN PRN Reason: SALINE FLUSH Last Admin: 08/17/20 09:07 Dose: 10 ml Documented by: Sucralfate (Sucralfate 1 Gm Tablet) 1 gm PO 1HR_ACHS RANDI Last Admin: 08/17/20 06:17 Dose: Not Given Documented by: Throat Lozenges (Benzocaine/Menthol 1 Lozenge) 1 lozenge MUCOUS MEM Q2H PRN PRN PRN Reason: SORE THROAT Trazodone HCl (Trazodone 50 Mg Tablet) 25 mg PO QHS PRN PRN Reason: insomnia Last Admin: 08/16/20 23:11 Dose: 25 mg Documented by: Discharge Activity: May Not Drive Weight Bearing Status: Weight bearing as tolerated Call your doctor if you observe: Fever of 101 or Higher, Numbness or Tingling, Change in Color, Inability to urinate, Inability to have a bowel movement, Using more than one pad per hour, Shortness of breath, Dizziness, Fainting spells, Swelling in the ankles, Chest pain, Prolonged hiccoughing, Increased palpitations (irregular heartbeat), Calf discomfort, Uncontrolled pain Home Medications: Medications to take at Discharge Aspirin E.C. [Ecotrin] 81 mg PO DAILY@0800 10/21/16 Albuterol Inhaler [Ventolin Hfa] 2 puff INHALATION Q6H PRN PRN 10/23/17 ropinirole 0.5 mg tablet 1 mg PO QHS tablet 08/21/19 nitroglycerin 0.4 mg sublingual tablet 0.4 mg SL ONCE #25 tablet 08/23/19 Estrogen,Con/M-Progest Acet [Prempro 0.625-2.5 MG Tablet] 1 tablet PO DAILY 09/20/19 Teriflunomide [Aubagio] 14 mg PO DAILY 09/20/19 Modafinil [Provigil] 200 mg PO DAILY 12/12/19 Pioglitazone HCl 30 mg PO DAILY 12/25/19 Ropinirole HCl 1 mg PO LUNCH 12/25/19 dicyclomine 20 mg tablet 20 mg PO BID PRN #180 tablet 03/15/20 rosuvastatin 20 mg tablet 20 mg PO QHS #30 tablet 04/16/20 mirabegron 25 mg tablet,extended release 24 hr 25 mg PO Q24H #60 tablet 05/11/20 clopidogrel 75 mg tablet 75 mg PO DAILY #90 tablet 05/14/20 trazodone 50 mg tablet 50 mg PO QHS PRN #30 tablet 06/26/20 pantoprazole 40 mg tablet,delayed release 40 mg PO DAILY #30 tablet 07/25/20 Acetaminophen 1,000 mg PO TID PRN #1 tablet 07/29/20 duloxetine 30 mg capsule,delayed release 30 mg PO BID #60 cap 08/02/20 Ondansetron [Zofran Odt] 4 mg PO Q8H PRN PRN #10 tablet 08/04/20 isosorbide mononitrate 30 mg tablet,extended release 24 hr 30 mg PO DAILY #30 tablet 08/06/20 sucralfate 1 gram tablet 1 gm PO 4X/DAY #120 tablet 08/07/20 proMETHazine tablet [Phenergan tablet] 25 mg PO Q6H PRN PRN #10 tab 08/08/20 blood sugar diagnostic See Rx Instructions .ROUTE .MEDSUPPLY #100 each 08/10/20 blood-glucose meter See Rx Instructions .ROUTE .MEDSUPPLY #1 each 08/10/20 ondansetron HCl 8 mg tablet 8 mg PO Q8H PRN PRN #20 tab 08/10/20 Carvedilol [Coreg (Beta Marielle)] 6.25 mg PO BID 08/14/20 Ascorbic Acid [Fruit C-500] 500 mg PO DAILY #30 tab.chew 08/17/20 Ferrous Sulfate 325 mg PO DAILY #30 tablet 08/17/20 Glimepiride [Amaryl] 4 mg PO BID #0 08/17/20 Lisinopril 5 mg PO DAILY #30 tablet 08/17/20 Following Prescriptions Were Given to Patient: Ferrous Sulfate 325 mg PO DAILY #30 tablet Transmission Status: Received by [facility] [id number] Ascorbic Acid [Fruit C-500] 500 mg PO DAILY #30 tab.chew Transmission Status: Received by [facility] [id number] Primary Care Physician: Tom Sherman MD [Primary Care Provider] - Please follow up with your Primary Care Physician in: IN 2 WEEKS Please Follow Up With: Elias Butler MD When: as scheduled Please Follow Up With: Gautam Elias MD When: for MS Medical Necessity - Tobacco Use Smoking Status: Current every day smoker Tobacco Use: Cigarettes, Cigars Meaningful Use Info Meaningful Use Diagnoses (Choose all that apply): None applicable Inpatient E&M: 80905 Disch Hosp
--- NOTE | 2020-08-17 11:22 | PHA.DC.MR ---
Pharmacy Service has performed discharge medication reconciliation for this patient. The patient's discharge medication list was reviewed for discrepancies and discrepancies were resolved. Home Medications Aspirin E.C. [Ecotrin] 81 mg PO DAILY@0800 10/21/16 Potassium Chloride Oral Tablet [K-Dur] 20 meq PO DAILY 10/06/17 Albuterol Inhaler [Ventolin Hfa] 2 puff INHALATION Q6H PRN PRN 10/23/17 ropinirole 0.5 mg tablet 1 mg PO QHS tablet 08/21/19 nitroglycerin 0.4 mg sublingual tablet 0.4 mg SL ONCE #25 tablet 08/23/19 Estrogen,Con/M-Progest Acet [Prempro 0.625-2.5 MG Tablet] 1 tablet PO DAILY 09/20/19 Teriflunomide [Aubagio] 14 mg PO DAILY 09/20/19 Modafinil [Provigil] 200 mg PO DAILY 12/12/19 Pioglitazone HCl 30 mg PO DAILY 12/25/19 Ropinirole HCl 1 mg PO LUNCH 12/25/19 dicyclomine 20 mg tablet 20 mg PO BID PRN #180 tablet 03/15/20 rosuvastatin 20 mg tablet 20 mg PO QHS #30 tablet 04/16/20 mirabegron 25 mg tablet,extended release 24 hr 25 mg PO Q24H #60 tablet 05/11/20 clopidogrel 75 mg tablet 75 mg PO DAILY #90 tablet 05/14/20 trazodone 50 mg tablet 50 mg PO QHS PRN #30 tablet 06/26/20 pantoprazole 40 mg tablet,delayed release 40 mg PO DAILY #30 tablet 07/25/20 Acetaminophen 1,000 mg PO TID PRN #1 tablet 07/29/20 duloxetine 30 mg capsule,delayed release 30 mg PO BID #60 cap 08/02/20 Ondansetron [Zofran Odt] 4 mg PO Q8H PRN PRN #10 tablet 08/04/20 isosorbide mononitrate 30 mg tablet,extended release 24 hr 30 mg PO DAILY #30 tablet 08/06/20 cefixime 400 mg capsule 400 mg PO DAILY 14 Days #14 cap 08/07/20 sucralfate 1 gram tablet 1 gm PO 4X/DAY #120 tablet 08/07/20 proMETHazine tablet [Phenergan tablet] 25 mg PO Q6H PRN PRN #10 tab 08/08/20 blood sugar diagnostic See Rx Instructions .ROUTE .MEDSUPPLY #100 each 08/10/20 blood-glucose meter See Rx Instructions .ROUTE .MEDSUPPLY #1 each 08/10/20 ondansetron HCl 8 mg tablet 8 mg PO Q8H PRN PRN #20 tab 08/10/20 Carvedilol [Coreg (Beta Marielle)] 6.25 mg PO BID 08/14/20 Ascorbic Acid [Fruit C-500] 500 mg PO DAILY #30 tab.chew 08/17/20 Ferrous Sulfate 325 mg PO DAILY #30 tablet 08/17/20 Glimepiride [Amaryl] 4 mg PO BID #0 08/17/20 Lisinopril 5 mg PO DAILY #30 tablet 08/17/20
--- NOTE | 2020-08-17 11:30 | STRESSREP ---
Stress Test Report Date: 08/17/2020 Procedure: Pharmacologic stress nuclear imaging study Indications: [Chest pain] Consent: Per the patient Procedure: The patient underwent pharmacologic (Regadenoson) evaluation with a peak heart rate of 120 beats per minute (77%predicted maximal heart rate) and a peak blood pressure of 160/90 mmHg. The baseline ECG demonstrated normal sinus rhythm, prior anterior MS. EKG during lexiscan infusion revealed no significant ischemic changes. EKG post infusion revealed no significant ischemic changes [There were no cardiac dysrhythmias pretest, during pharmacologic infusion, or recovery]. [There was no complaint of chest discomfort during pharmacologic infusion or recovery]. The examination was discontinued secondary to completion of protocol. Impression: 1. Lexiscan stress test test is negative for Lexiscan infusion induced EKG changes of ischemia. 2. Lexiscan stress test test is negative for Lexiscan infusion induced chest pain. 3. Results of the nuclear portion of the test is as below Myocardial perfusion imaging study: Technique: The patient was injected with [] millicuries of technetium 99m Cardiolite and subsequently rest SPECT Cardiolite nuclear imaging was obtained in the horizontal long, vertical long, and short axis views. The patient underwent pharmacologic [Regadenoson 0.4mg] evaluation. Please see above for details. The patient was injected with [] millicuries of technetium 99m Cardiolite and subsequently stress SPECT Cardiolite nuclear imaging was obtained in the horizontal long, vertical long, and short axis views. A gated Cardiolite study at peak stress was obtained. Interpretation: Rest and stress SPECT Cardiolite nuclear imaging status post realignment, normalization, and attenuation correction demonstrate absent radioisotope uptake in the distal anterior wall and apex on both the rest and stress images. There is no significant reversibility. Gated images reveal apical hypokinesis. The reported LVEF is 59%. Impression: 1. There is evidence of prior anterior and apical MS. There is no evidence of significant ischemia. 2. Estimated ejection fraction is 59%. This note was generated with [employer] software. It may contain incorrect words, spelling, and punctuation that were not noted in checking the note before signing.
[2020-08-17] MEDS: Modafinil 200 MG Tablet PO (11:42)
[2020-08-17 13:06] LABS: Bedside Glucose 232 mg/dL (70-110)
--- NOTE | 2020-08-17 13:50 | CASEMGMT ---
PRAVIN received a phone call from Delia at [facility] and she said patient's insurance would like to do a peer to peer for SNF. PRAVIN took down the information and spoke with physician. Delia said if she still gets denied after peer to peer patient can come on her Medicaid portion of insurance. This would not require another pre-cert. PRAVIN spoke with physician and he will attempt a peer to peer. Rajwinder Benavidez MSW DANIEL
[2020-08-17 14:05] LABS: Bacteria 0 SEEN /hpf (None Seen); Color, Urine Straw (Yellow); Glucose, Dipstick Normal (Normal); Ketone-Dipstick Negative (Negative); Leukocyte Esterase-Dipstick Negative /ul (Negative); Mucous, Urine 0 SEEN /hpf (<or=2+); Nitrite-Dipstick Negative (Negative); Occult Blood-Urine Negative /ul (Negative); Protein-Dipstick Negative (Negative); Red Blood Cells-Urine 0 SEEN /hpf (0-5); Specific Gravity, Urine 1.005 (1.002-1.030); Urine Bilirubin Dipstick Negative (Negative); Urine Clarity Clear (Clear); Urine Urobilinogen Normal (Normal); Urine pH 6.5 (5.0 - 8.0); White Blood Cells 0 SEEN /hpf (0-5)
[2020-08-17 14:18] LABS: Squamous Epithelial Cells - UA 0-5 SEEN /hpf (5-10)
--- NOTE | 2020-08-17 14:31 | CASEMGMT ---
Patient was approved after peer to peer. SW completed PASRR. SW will have to call [facility] to arrange transport as patient has [facility] insurance and can go by wheelchair. Rajwinder SANCHEZ
[2020-08-17] MEDS: Pramipexole Di-HCl 0.5 MG Tablet PO ×2 (14:44→20:30)
[2020-08-17] MEDS: Insulin Lispro 100 UNIT/ML INSULN.PEN SC ×2 (14:45→20:35)
[2020-08-17 14:46] LABS: Bedside Glucose 208 mg/dL (70-110)
--- NOTE | 2020-08-17 15:17 | CASEMGMT ---
PRAVIN spoke with Delia at [facility] and she said they did get authorization. Patient will need a COVID test. PRAVIN faxed orders to [facility]. Rajwinder SANCHEZ
[2020-08-17] MEDS: Enoxaparin 40 MG/0.4 ML Syringe SC (15:42)
[2020-08-17] MEDS: Estrogens,Conj. 0.625 MG Tablet PO (15:44)
[2020-08-17] MEDS: Clopidogrel Bisulfate 75 MG Tablet PO (15:44)
--- NOTE | 2020-08-17 16:22 | CASEMGMT ---
PRAVIN called [facility] and spoke with Delia requesting a 630p excelsior picker[place] [id number]. The phone number for [facility] is . PRAVIN notified RN and patient. PASRR was completed as patient is observation status. Plan: d/c to [facility] under skilled level of care on a PASRR as she is observation status. [facility] was requested still waiting on the official approval. Rajwinder SANCHEZ
[2020-08-17 17:55] LABS: Bedside Glucose 140 mg/dL (70-110)
--- NOTE | 2020-08-17 18:19 | NURSING ---
This RN reviewed and agree with [facility] documentation.
--- NOTE | 2020-08-17 19:04 | NURSING ---
Attempted to call report to [facility] at [phone], no answer was on hold for 7 minutes.
--- NOTE | 2020-08-17 19:39 | NURSING ---
Called to give Jahaira De La Torre LPN [facility] report at [phone].
[2020-08-17] MEDS: oxyCODONE 5 MG Tablet PO (20:29)
[2020-08-17] MEDS: Atorvastatin Calcium 40 MG Tablet PO (20:32)
[2020-08-17] MEDS: Acetaminophen 325 MG Tablet 650 MG PO (20:42)
--- NOTE | 2020-08-17 20:44 | NURSING ---
HS medications given early due to impending discharge. Pt states she wants to be ready to go to bed once she gets there.
[2020-08-17 21:05] LABS: Bedside Glucose 201 mg/dL (70-110)
--- NOTE | 2020-08-17 22:15 | NURSING ---
PT WAS DISCHARGED AT THIS TIME WITH BELONGINGS.
== END 2020-08-17 22:15 | disposition skilled nursing facility (03) ==
LOC: ED 20:17 → PCU 22:00
PROVIDERS: Physician Assistant; Admitting Provider Family Medicine; Emergency Provider Emergency Medicine; PCP Internal Medicine; Visit Provider Internal Medicine
DX: R07.89 Other chest pain (principal); I48.0 Paroxysmal atrial fibrillation; E87.6 Hypokalemia; K58.0 Irritable bowel syndrome with diarrhea; E78.5 Hyperlipidemia, unspecified; R06.00 Dyspnea, unspecified; I50.22 Chronic systolic (congestive) heart failure; I11.0 Hypertensive heart disease with heart failure; I25.2 Old myocardial infarction; I25.10 Atherosclerotic heart disease of native coronary artery without angina pectoris; I25.5 Ischemic cardiomyopathy; F17.210 Nicotine dependence, cigarettes, uncomplicated; F32.9 Major depressive disorder, single episode, unspecified; F41.9 Anxiety disorder, unspecified; G89.29 Other chronic pain; D64.9 Anemia, unspecified; E11.9 Type 2 diabetes mellitus without complications; G25.81 Restless legs syndrome; G47.33 Obstructive sleep apnea (adult) (pediatric); G35 Multiple sclerosis; J44.9 Chronic obstructive pulmonary disease, unspecified; E66.9 Obesity, unspecified; K21.9 Gastro-esophageal reflux disease without esophagitis; Z95.5 Presence of coronary angioplasty implant and graft; Z79.899 Other long term (current) drug therapy; Z79.82 Long term (current) use of aspirin; Z79.84 Long term (current) use of oral hypoglycemic drugs; Z79.02 Long term (current) use of 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/antiplatelets; Z68.30 Body mass index [BMI] 30.0-30.9, adult
CPT/HCPCS: 36415; 71045; 76770; 78452; 80048; 80053; 80061; 81001; 82274; 82607; 82728; 82746; 82947; 82962; 83010; 83540; 83550; 83615; 83735; 84132; 84484; 85025; 85045; 87086; 87088; 87426; 93005; 93017; 96365; 96366; 96372; 96375; 96376; 97116; 97162; 97166; 97530; 97535; 99218; 99251; 99285; 99406; A9500; J7050; A4216; G0378; G0463; J2405; J2785; J2916

== ENCOUNTER 2020-08-30 20:32 | Emergency (ER) | payer MEDICARE, MEDICAID, SELFPAY ==
[2016-07-13 11:45] VITALS: BMI 31.4
[2020-08-28 15:03] VITALS: BMI 28.0
[2020-08-30 20:34] VITALS: BP 124/70; PULSE 111; RESP 18; TEMP 35.7; O2SAT 97; BMI 28.3
[2020-08-30 20:36] VITALS: BP 124/70; PULSE 106; RESP 18; TEMP 35.7; O2SAT 97
[2020-08-30 20:48] VITALS: O2SAT 98
--- NOTE | 2020-08-30 20:48 | EKG12_ITS ---
Test Reason : CP Blood Pressure : / mmHG Vent. Rate : 107 BPM Atrial Rate : 102 BPM P-R Int : 000 ms QRS Dur : 086 ms QT Int : 342 ms P-R-T Axes : 000 -32 085 degrees QTc Int : 456 ms Sinus tachycardia Left axis deviation Low voltage QRS Inferior infarct , age undetermined Cannot rule out Anteroseptal infarct , age undetermined Abnormal ECG Confirmed by ALLAN WITT, DORYS ([id number]), material expeditor YUNG MUNGUIA ([id number]) on 09/03/2020 12:44:05 PM Referred By: LORETTA Confirmed By:DORYS LEMUS MD
[2020-08-30] MEDS: 0.9% Normal Saline 1,000 ML 250 ML IV (21:23)
[2020-08-30] MEDS: Ondansetron 4 MG/2 ML Vial IV (21:23)
[2020-08-30] MEDS: Morphine 4 MG/ML Syringe IV (21:26)
[2020-08-30 21:41] LABS: Hematocrit 29.7 % (37-47); Hemoglobin 8.9 g/dL (12.0-15.0); Mean Corpuscular Hgb 28.8 pg (27.0-32.0); Mean Corpuscular Volume 96.1 fL (81-99); Mean Platelet Vol. 10.3 fl (6.2-12.0); Neutrophil % 58.4 % (47-70); Platelet Count 307 K/mm3 (150-450); RBC Distribution Width CV 18.1 % (11.6-14.6); RBC Distribution Width SD 63.4 fl (35.1-43.9); Red Blood Count 3.09 M/mm3 (4.2-5.4); White Blood Count 7.1 K/mm3 (4.4-11.0)
[2020-08-30 21:42] LABS: Absolute Lymphocyte Count 1.83 X10^3/uL (0.83-4.51); Absolute Neutrophil Count 4.1 X10^3/uL (2.0-7.7); Basophil# 0.08 X10^3/uL; Basophil% 1.1 % (0-1); Eosinophil# 0.16 X10^3/uL; Eosinophils% 2.3 % (0-5); Lymphocyte # 1.83 X10^3/ul (0.83-4.51); Lymphocyte % 25.8 % (19-41); Monocyte# 0.86 X10^3/uL; Monocyte% 12.1 % (0-10); NRBC Flagged by Analyzer 0 % (0-5); Neutrophil # 4.13 X10^3/uL (2.7-7.7)
[2020-08-30 22:00] LABS: Anion Gap 8 (5-15); BUN 15 mg/dL (7-18); BUN/Creat Ratio 19.8 RATIO (10-20); Calcium,Total 8.8 mg/dL (8.5-10.1); Chloride 107 mmol/L (98-107); Creatinine, Serum 0.76 mg/dL (0.55-1.02); EST Glomerular Filtration Rate 81 mL/min (>60); Est Glom Filt Rate - Afr Amer 98 mL/min (>60); Estimated Creatinine Clearance 66.41 ml/min; Glucose 142 mg/dL (74-106); Potassium 3.7 mmol/L (3.5-5.1); Sodium Level 140 mmol/L (136-145)
--- NOTE | 2020-08-30 22:20 | RAD_ITS ---
INDICATION: chest pain EXAMINATION/TECHNIQUE: X-RAY - XR Chest 1 View COMPARISON: 08/14/2020. FINDINGS: The lungs are clear. Tortuous thoracic aorta. The heart is not enlarged. No pleural effusion or pneumothorax. No acute osseous abnormalities. Postsurgical changes of the cervical spine. RAD/Chest 1 View (Portable) IMPRESSION: No acute radiographic abnormalities. Electronically Signed: Leland Ferraro MD at 22:43 EDT Tel , Service support ,
--- NOTE | 2020-08-30 22:32 | EKG12_ITS ---
Test Reason : REPEAT Blood Pressure : / mmHG Vent. Rate : 102 BPM Atrial Rate : 102 BPM P-R Int : 128 ms QRS Dur : 090 ms QT Int : 342 ms P-R-T Axes : 089 -41 092 degrees QTc Int : 445 ms Sinus tachycardia Left axis deviation Low voltage QRS Inferior infarct , age undetermined Cannot rule out Anteroseptal infarct , age undetermined Abnormal ECG Confirmed by DORYS LEMUS MD ([id number]), newspaper managing editor YUNG MUNGUIA ([id number]) on 09/03/2020 12:44:22 PM Referred By: LORETTA Confirmed By:DORYS LEMUS MD
[2020-08-30 23:14] VITALS: BP 125/61; PULSE 104; RESP 24; O2SAT 97
--- NOTE | 2020-08-31 00:19 | ED.VIS.CHEST ---
HPI History of Present Illness Chief Complaint: Chest Pain Narrative Narrative: 64-year-old female patient who reports that she has chest pain that began 11:00 this morning while she was at rest. That episode last approximately an hour and a half. She describes it as a sharp, tightness. It was 7 out of 10 in severity at worst. She reports the pain seemed to be worsened by breathing. It was relieved by nothing. She reports there was nausea and shortness of breath associated with this. Denies any vomiting or diaphoresis. Patient reports that she has pain that began again an hour and a half ago that woke her from sleep that is the same. States that she has a headache after nitroglycerin. She denies any other complaints. 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 Cervical spinal stenosis Chronic systolic (congestive) heart failure COPD (chronic obstructive pulmonary disease) Diabetes mellitus type 2 in nonobese Essential (primary) hypertension History of ST elevation myocardial infarction (STEMI) IBS (irritable bowel syndrome) Irritable bowel syndrome with diarrhea Ischemic cardiomyopathy Left ventricular hypertrophy Major depression Multiple sclerosis Nicotine abuse BRYAN (obstructive sleep apnea) Paroxysmal atrial fibrillation RLS (restless legs syndrome) Suicidal ideation Tachycardia Takotsubo syndrome Vitamin B12 deficiency Home Medications aspirin 81 mg PO DAILY@0800 10/21/16 [History Last Taken 08/14/20 09:00] albuterol sulfate 2 puff INHALATION Q6H PRN PRN 10/23/17 [History Last Taken 06/08/19] ropinirole 0.5 mg tablet 1 mg PO QHS tablet 08/21/19 [History Last Taken 08/13/20] nitroglycerin 0.4 mg sublingual tablet 0.4 mg SL ONCE #25 tablet 08/23/19 [Rx Last Taken 12/25/19 12:00] conj estrog-medroxyprogest raquel 1 tablet PO DAILY 09/20/19 [History Last Taken 08/14/20 09:00] teriflunomide 14 mg PO DAILY 09/20/19 [History Last Taken 08/14/20 09:00] modafinil 200 mg PO DAILY 12/12/19 [History Last Taken 08/14/20 09:00] pioglitazone 30 mg PO DAILY 12/25/19 [History Last Taken 12/25/19 21:00] ropinirole 1 mg PO LUNCH 12/25/19 [History Last Taken 08/14/20 13:00] dicyclomine 20 mg tablet 20 mg PO BID PRN #180 tablet 03/15/20 [Rx Last Taken 08/14/20 13:00] mirabegron 25 mg tablet,extended release 24 hr 25 mg PO Q24H #60 tablet 05/11/20 [Rx Last Taken 08/14/20 09:00] clopidogrel 75 mg tablet 75 mg PO DAILY #90 tablet 05/14/20 [Rx Last Taken 08/14/20 09:00] trazodone 50 mg tablet 50 mg PO QHS PRN #30 tablet 06/26/20 [Rx Last Taken 08/13/20] pantoprazole 40 mg tablet,delayed release 40 mg PO DAILY #30 tablet 07/25/20 [Rx Last Taken 08/14/20 09:00] acetaminophen 1,000 mg PO TID PRN #1 tablet 07/29/20 [Rx Last Taken Unknown] duloxetine 30 mg capsule,delayed release 30 mg PO BID #60 cap 08/02/20 [Rx Last Taken 08/14/20 17:00] ondansetron 4 mg PO Q8H PRN PRN #10 tablet 08/04/20 [Rx Last Taken 08/14/20 12:00] isosorbide mononitrate 30 mg tablet,extended release 24 hr 30 mg PO DAILY #30 tablet 08/06/20 [Rx Last Taken 08/14/20 09:00] sucralfate 1 gram tablet 1 gm PO 4X/DAY #120 tablet 08/07/20 [Rx Last Taken 08/14/20 17:00] promethazine 25 mg PO Q6H PRN PRN #10 tab 08/08/20 [Rx Last Taken Unknown] blood sugar diagnostic #100 each 08/10/20 [Rx Last Taken Unknown] blood-glucose meter #1 each 08/10/20 [Rx Last Taken Unknown] ondansetron HCl 8 mg tablet 8 mg PO Q8H PRN PRN #20 tab 08/10/20 [Rx Last Taken Unknown] ascorbic acid (vitamin C) 500 mg PO DAILY #30 tab.chew 08/17/20 [Rx Last Taken Unknown] ferrous sulfate 325 mg PO DAILY #30 tablet 08/17/20 [Rx Last Taken Unknown] glimepiride 4 mg PO BID #0 08/17/20 [Rx Last Taken 08/14/20 09:00] lisinopril 5 mg PO DAILY #30 tablet 08/17/20 [Rx Last Taken 08/14/20 09:00] atorvastatin 40 mg tablet 40 mg PO DAILY 08/28/20 [History Last Taken Unknown] bisacodyl 10 mg rectal suppository 10 mg PA DAILY PRN 08/28/20 [History Last Taken Unknown] carvedilol 6.25 mg tablet 12.5 mg PO BID tab 08/28/20 [History Last Taken Unknown] Allergy/AdvReac Type Severity Reaction Status Date / Time indomethacin [From Indocin] Allergy Hives Verified 08/28/20 14:55 indomethacin sodium Allergy Hives Verified 08/28/20 14:55 [From Indocin] iodine Allergy Hives Verified 08/28/20 14:55 propoxyphene napsylate Allergy Out of Verified 08/28/20 14:55 [From Darvocet-N] control aripiprazole [From Abilify] AdvReac Other Verified 08/28/20 14:55 aspirin AdvReac Upset Verified 08/28/20 14:55 Stomach clindamycin AdvReac Nausea Verified 08/28/20 14:55 metformin AdvReac Other Verified 08/28/20 14:55 sumatriptan [From Imitrex] AdvReac Vomiting Verified 08/28/20 14:55 Family History Father Cancer Lung cancer Mother Cancer Pancreatic cancer Surgical History History of amputation of left great toe History of back surgery History of cervical discectomy History of coronary artery stent placement (04/08/16) History of left knee surgery History of loop recorder (06/2014) History of tonsillectomy and adenoidectomy Social History Smoking Status: Current every day smoker tobacco type: cigarettes alcohol intake: never substance use type: does not use caffeine: Yes Type: coffee Number of servings: 1 what type of physical activity do you participate in: none and other details: Physical Therapy ROS ROS ED Constitutional Constitutional ED: Denies chills, fever(s) or sweats Eyes Eyes: Denies change in vision ENT ENT ED: Denies sore throat Cardiovascular Cardiovascular: Reports chest pain Respiratory/Chest Respiratory/Chest: Denies cough, dyspnea or dyspnea on exertion Gastrointestinal Gastrointestinal: Reports nausea; Denies abdominal pain, diarrhea, melena or vomiting Genitourinary Genitourinary ED: Denies dysuria or urinary frequency Musculoskeletal Musculoskeletal: Denies myalgias Integumentary Denies rash Neurologic Neurologic: Denies headache(s), paresthesias or weakness EXAM Physical Exam Const Vital Signs: 08/30/20 20:34 08/30/20 20:36 08/30/20 20:48 Temperature 96.3 F L 96.3 F L Temperature Source Temporal Temporal Pulse Rate 111 H 106 H Respiratory Rate 18 18 Blood Pressure 124/70 H 124/70 H Blood Pressure Mean 88 88 Pulse Ox 97 97 98 Oxygen Delivery Method Room Air Room Air Room Air 08/30/20 23:14 Temperature Temperature Source Pulse Rate 104 H Respiratory Rate 24 H Blood Pressure 125/61 H Blood Pressure Mean 82 Pulse Ox 97 Oxygen Delivery Method Room Air Positive well nourished and well developed General Appearance ED: well developed HEENT Reports normocephalic and head/scalp atraumatic Eyes PERRL Neck no lymphadenopathy, supple and no JVD General: Negative for tenderness Resp normal respiratory effort and clear to auscultation bilaterally Cardio regular rate, regular rhythm and no murmurs GI normal to inspection, nondistended, normoactive bowel sounds and non-tender GI Narrative: No guarding, rebound, or peritoneal signs. Palpation: soft Back/Spine Back/Spine Narrative: Nontender. Extremity General Extremety ED: Negative for edema or tenderness General Extremity: Negative for edema Neuro oriented x3, CN's II-XII intact bilaterally and no sensory deficits noted Sensorium / Orientation: alert Motor Exam: strength 5/5 throughout Psych mental status grossly normal Skin no rashes or lesions noted Heart Score History: Slightly/Non-Suspicious ECG: Nonspecific Repolarization Age: >/= 65 years Risk Factors: >/= 3 Risk Factors or History of CAD Troponin: </= Normal Limit Score: 5 MDM MDM Lab Data Labs: Laboratory Results - last 24 hr 08/30/20 08/30/20 08/30/20 20:38 20:38 23:32 WBC 7.1 RBC 3.09 L Hgb 8.9 L Hct 29.7 L MCV 96.1 MCH 28.8 MCHC 30.0 L RDW Std Deviation 63.4 H RDW Coeff of [place] 18.1 H Plt Count 307 MPV 10.3 Immature Gran % (Auto) 0.300 Neut % (Auto) 58.4 Lymph % (Auto) 25.8 [place] % (Auto) 12.1 H Eos % (Auto) 2.3 Baso % (Auto) 1.1 H Absolute Neuts (auto) 4.1 Absolute Lymphs (auto) 1.83 Nucleated RBC % 0 Sodium 140 Potassium 3.7 Chloride 107 Carbon Dioxide 25.0 Anion Gap 8 BUN 15 Creatinine 0.76 Estim Creat Clear Calc 66.41 Est GFR (MDRD) Af Amer 98 Est GFR (MDRD) Non-Af 81 BUN/Creatinine Ratio 19.8 Glucose 142 H Calcium 8.8 Troponin I < 0.015 < 0.015 Radiography Chest X-Ray - ED: Read by ED Physician Diagnostic Testing: Radiology Impression Chest X-Ray 08/30/20 22:20 IMPRESSION: No acute radiographic abnormalities. Electronically Signed: Leland Ferraro MD at 22:43 EDT Tel , Service support , 1 view chest x-ray shows no acute disease on my read. EKG Initial EKG: Attestation: I personally reviewed and interpreted this EKG as follows: Interpretation: Sinus Tachycardia and Non-Specific ST Changes Comments: EKG is sinus tach at 107. Nonspecific ST changes. Unchanged from August 17. Prior: Unchanged Follow-up EKG: Attestation: I personally reviewed and interpreted this EKG as follows: Interpretation: Sinus Tachycardia and Non-Specific ST Changes Prior: Unchanged Treatment and Re-Evaluation Comments:: Emergency department course: Patient had an IV placed. She was given dose of morphine and Zofran IV. She is resting comfortably. She had an EKG that was unchanged from prior. She had a troponin and a 3-hour troponin that are negative. She had a stress test 2 weeks ago that was negative. Given the patient's symptoms I do not think that she needs to be admitted for a heart catheterization and there would be no point in doing another stress test. Treatment plan: Patient be discharged instructions to follow Dr. Butler as soon as possible. Return to the emergency department for any worsening symptoms. Disposition: To home in improved and stable condition. Discharge Plan Triage Chief Complaint: Chest Pain ED Provider: Elvin Blanchard Dx/Rx/DC Orders Clinical Impression: Chest pain Instructions: ED Chest Pain, Uncertain Cause Prescriptions: No Action ropinirole [Requip] 0.5 mg tablet 1 mg PO QHS RF: 0 nitroglycerin 0.4 mg tablet, sublingual 0.4 mg SL ONCE Qty: 25 RF: 3 dicyclomine 20 mg tablet 20 mg PO BID PRN (Reason: abdominal discomfort) Qty: 180 RF: 2 Myrbetriq 25 mg tablet extended release 24 hr 25 mg PO Q24H Qty: 60 RF: 1 trazodone 50 mg tablet 50 mg PO QHS PRN (Reason: insomnia) Qty: 30 RF: 1 sucralfate 1 gram tablet 1 gm PO 4X/DAY Qty: 120 RF: 1 atorvastatin 40 mg tablet 40 mg PO DAILY RF: 0 bisacodyl [Dulcolax (bisacodyl)] 10 mg suppository 10 mg PA DAILY PRNRF: 0 carvedilol 6.25 mg tablet 12.5 mg PO BID RF: 0 aspirin 81 MG tablet 81 mg PO DAILY@0800 RF: 0 albuterol sulfate 1 INHALER inhaler 2 puff INHALATION Q6H PRN PRN (Reason: Sob &/Or Wheezing) RF: 0 conj estrog-medroxyprogest raquel 1 TAB tablet 1 tablet PO DAILY RF: 0 teriflunomide 14 mg tablet 14 mg PO DAILY RF: 0 modafinil 200 MG tablet 200 mg PO DAILY RF: 0 ropinirole 1 MG tablet 1 mg PO LUNCH RF: 0 pioglitazone 30 MG tablet 30 mg PO DAILY RF: 0 acetaminophen 500 MG tablet 1,000 mg PO TID PRN (Reason: pain 1-02/03) Qty: 1 RF: 0 ondansetron 4 MG tablet 4 mg PO Q8H PRN PRN (Reason: Nausea) Qty: 10 RF: 0 promethazine 25 MG tablet 25 mg PO Q6H PRN PRN (Reason: Nausea) Qty: 10 RF: 0 ferrous sulfate 325 MG tablet 325 mg PO DAILY Qty: 30 RF: 2 ascorbic acid (vitamin C) 500 MG tablet,chewable 500 mg PO DAILY Qty: 30 RF: 0 glimepiride 4 MG tablet 4 mg PO BID Qty: 0 RF: 0 lisinopril 2.5 mg tablet 5 mg PO DAILY Qty: 30 RF: 11 clopidogrel 75 mg tablet 75 mg PO DAILY Qty: 90 RF: 3 pantoprazole 40 mg tablet,delayed release (DR/EC) 40 mg PO DAILY Qty: 30 RF: 0 duloxetine 30 mg capsule,delayed release(DR/EC) 30 mg PO BID Qty: 60 RF: 2 isosorbide mononitrate 30 mg tablet extended release 24 hr 30 mg PO DAILY Qty: 30 RF: 11 (DME) blood-glucose meter [Accu-Chek Ada Plus Meter] Misc See Rx Instructions .ROUTE .MEDSUPPLY Qty: 1 RF: 0 ondansetron HCl 8 mg tablet 8 mg PO Q8H PRN PRN (Reason: Nausea/Vomiting) Qty: 20 RF: 0 (DME) Accu-Chek Ada Plus test strp Strip See Rx Instructions .ROUTE .MEDSUPPLY Qty: 100 RF: 3 Primary Care Provider: Tom Sherman Referrals: Elias Butler MD [STAFF PHYSICIAN] - As soon as possible Tom Sherman MD [Primary Care Provider] - As soon as possible
[2020-08-31 02:37] VITALS: BP 125/61; PULSE 104; RESP 24; O2SAT 97
== END 2020-08-31 02:39 | disposition skilled nursing facility (03) ==
PROVIDERS: Emergency Provider Emergency Medicine; PCP Internal Medicine
DX: R07.9 Chest pain, unspecified (principal); I25.10 Atherosclerotic heart disease of native coronary artery without angina pectoris; I11.0 Hypertensive heart disease with heart failure; I50.22 Chronic systolic (congestive) heart failure; J44.9 Chronic obstructive pulmonary disease, unspecified; E11.9 Type 2 diabetes mellitus without complications; I25.2 Old myocardial infarction; I25.5 Ischemic cardiomyopathy; I48.0 Paroxysmal atrial fibrillation; G35 Multiple sclerosis; G25.81 Restless legs syndrome; F17.210 Nicotine dependence, cigarettes, uncomplicated; Z79.82 Long term (current) use of aspirin; Z79.84 Long term (current) use of oral hypoglycemic drugs; Z79.02 Long term (current) use of 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/antiplatelets; Z79.899 Other long term (current) drug therapy
CPT/HCPCS: 36415; 71045; 80048; 84484; 85025; 93005; 96361; 96374; 96375; 99285; J7030; A4216; J2405

== ENCOUNTER → 2020-09-03 | Outpatient (CLI) | payer MEDICARE, MEDICAID, SELFPAY ==
[2016-07-13 11:45] VITALS: BMI 31.4
[2020-08-30 20:34] VITALS: BMI 28.3
--- NOTE | 2020-09-03 | CYSPIN_PTH ---
PATIENT: ELO HERNANDEZ LOC: [facility] U#:[id number] AGE/SX: 64/F ROOM: RE09/03/[address]: Dr. Madiha Jessica MD : 1955 BED: DIS: 09/03/2020 SPEC #: [id number] RECD: 09/04/20 08:07 STATUS: IAM REQ #: [id number] ADI: 09/03/20 00:[address]: Madiha Jessica DEPT: CYTOLOGY RECD BY: Marilynn Salazar ENTERED: 09/04/20 08:09 SP TYPE: CYSPIN FL OTHR DR: Dr. Tom Sherman MD Tissues: Urine Procedures: Pap Stain (control) Special Stain Group II Cytospin Fluid HEADER OPERATION: Not noted PRE-OP DIAGNOSIS: Gross hematuria, dysuria TISSUE SUBMITTED: Urine for cytology DIAGNOSIS CYTOLOGY Urine for cytology (cytospin): Negative for malignant cells. Marked acute inflammation. See comment. BEN:miladys 09/04/2020 COMMENT Numerous organisms consistent with bacteria are also noted. Clinical correlation and appropriate follow up are necessary. CYTOLOGY STUDY Slides are reviewed. CYTOLOGY GROSS Received is 30 ml of dark yellow cloudy fluid labeled with the patient's name and and designated per the requisition as urine. Submitted for cytology preparation. / miladys 09/03/20 TC:2 CPT: 44876
[2020-09-03 16:19] LABS: Cytology, Body Fluid / CSF SEE PATHOLOGY REPORT
== END | disposition home or self-care (01) ==
LOC: LABSPEC 15:43
PROVIDERS: PCP Internal Medicine; Referring Provider Urology; Visit Provider Urology
DX: R31.0 Gross hematuria (principal); R30.0 Dysuria
CPT/HCPCS: 88108; 88313

== ENCOUNTER 2020-09-23 14:57 | Observation (INO) | payer MEDICARE, MEDICAID, SELFPAY ==
[2016-07-13 11:45] VITALS: BMI 31.4
[2020-09-18 08:25] VITALS: BMI 28.3
[2020-09-23] VITALS (11 sets, daily range): BP systolic 110–129; BP diastolic 53–79; PULSE 64–100; RESP 13–20; TEMP 36.6–36.8; O2SAT 96–99; BMI 27.6
--- NOTE | 2020-09-23 15:20 | EKG12_ITS ---
Test Reason : REPEAT Blood Pressure : / mmHG Vent. Rate : 069 BPM Atrial Rate : 069 BPM P-R Int : 136 ms QRS Dur : 092 ms QT Int : 402 ms P-R-T Axes : 044 -49 100 degrees QTc Int : 430 ms Normal sinus rhythm Left axis deviation Septal infarct , age undetermined Inferior infarct , age undetermined Abnormal ECG Confirmed by CATHERINE WITT, GRIS ([id number]), field map editor YUNG MUNGUIA ([id number]) on 09/26/2020 12:48:10 PM Referred By: RAN Confirmed By:GRIS ALEXANDER MD
[2020-09-23 15:30] LABS: Absolute Lymphocyte Count 1.36 X10^3/uL (0.83-4.51); Absolute Neutrophil Count 5.5 X10^3/uL (2.0-7.7); Basophil% 1.3 % (0-1); Eosinophil# 0.32 X10^3/uL; Hematocrit 35.6 % (37-47); Hemoglobin 10.8 g/dL (12.0-15.0); Lymphocyte # 1.36 X10^3/ul (0.83-4.51); Lymphocyte % 17.1 % (19-41); Mean Corp Hgb Conc 30.3 g/dL (32-36); Mean Corpuscular Hgb 29.5 pg (27.0-32.0); Mean Corpuscular Volume 97.3 fL (81-99); Mean Platelet Vol. 10.7 fl (6.2-12.0); Monocyte# 0.63 X10^3/uL; Monocyte% 7.9 % (0-10); NRBC Flagged by Analyzer 0 % (0-5); Neutrophil # 5.51 X10^3/uL (2.7-7.7); Neutrophil % 69.4 % (47-70); Platelet Count 275 K/mm3 (150-450); RBC Distribution Width SD 53.8 fl (35.1-43.9); Red Blood Count 3.66 M/mm3 (4.2-5.4); White Blood Count 7.9 K/mm3 (4.4-11.0)
--- NOTE | 2020-09-23 15:32 | EDS_ITS ---
HPI History of Present Illness Chief Complaint: Chest Pain Narrative Narrative: 64-year-old female with history of MA, CHF, paroxysmal A. fib, cardiac stents presenting with chest pain. She states it feels like it is achy and heavy in nature. It radiates to the left arm. She has associated symptoms of nausea. She does not have shortness of breath and she states she has not been diaphoretic. Patient states the onset of this was at 1330. She tried to nitroglycerin which did not help her pain. She was given baby aspirin by squad. She states she continues to have pain. Denies history of DVT/PE, but she does state that her MA was due to intracardiac thrombus. Patient had a recent stress test last month which showed no ischemia. 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 Cervical spinal stenosis Chronic systolic (congestive) heart failure COPD (chronic obstructive pulmonary disease) Diabetes mellitus type 2 in nonobese Essential (primary) hypertension History of ST elevation myocardial infarction (STEMI) IBS (irritable bowel syndrome) Irritable bowel syndrome with diarrhea Ischemic cardiomyopathy Left ventricular hypertrophy Major depression Multiple sclerosis Nicotine abuse BRYAN (obstructive sleep apnea) Paroxysmal atrial fibrillation RLS (restless legs syndrome) Suicidal ideation Tachycardia Takotsubo syndrome Vitamin B12 deficiency Home Medications aspirin 81 mg PO DAILY 10/21/16 [History Last Taken 08/14/20 09:00] albuterol sulfate 2 puff INHALATION Q6H PRN PRN 10/23/17 [History Last Taken 06/08/19] ropinirole 0.5 mg tablet 1 mg PO QHS tablet 08/21/19 [History Last Taken 08/13/20] conj estrog-medroxyprogest raquel 1 tablet PO DAILY 09/20/19 [History Last Taken 08/14/20 09:00] teriflunomide 14 mg PO DAILY 09/20/19 [History Last Taken 08/14/20 09:00] modafinil 200 mg PO DAILY 12/12/19 [History Last Taken 08/14/20 09:00] pioglitazone 30 mg PO DAILY 12/25/19 [History Last Taken 12/25/19 21:00] ropinirole 1 mg PO LUNCH 12/25/19 [History Last Taken 08/14/20 13:00] dicyclomine 20 mg tablet 20 mg PO BID PRN #180 tablet 03/15/20 [Rx Last Taken 08/14/20 13:00] clopidogrel 75 mg tablet 75 mg PO DAILY #90 tablet 05/14/20 [Rx Last Taken 08/14/20 09:00] acetaminophen 1,000 mg PO TID PRN #1 tablet 07/29/20 [Rx Last Taken Unknown] isosorbide mononitrate 30 mg tablet,extended release 24 hr 30 mg PO DAILY #30 tablet 08/06/20 [Rx Last Taken 08/14/20 09:00] blood sugar diagnostic #100 each 08/10/20 [Rx Last Taken Unknown] blood-glucose meter #1 each 08/10/20 [Rx Last Taken Unknown] ondansetron HCl 8 mg tablet 8 mg PO Q8H PRN PRN #20 tab 08/10/20 [Rx Last Taken Unknown] ascorbic acid (vitamin C) 500 mg PO DAILY #30 tab.chew 08/17/20 [Rx Last Taken Unknown] ferrous sulfate 325 mg PO DAILY #30 tablet 08/17/20 [Rx Last Taken Unknown] glimepiride 4 mg PO BID #0 08/17/20 [Rx Last Taken 08/14/20 09:00] atorvastatin 40 mg tablet 40 mg PO DAILY #30 tab 09/18/20 [Rx Last Taken Unknown] carvedilol 6.25 mg tablet 12.5 mg PO BID #60 tab 09/18/20 [Rx Last Taken Unknown] cholecalciferol (vitamin D3) 25 mcg (1,000 unit) capsule 50 mcg PO DAILY cap 09/18/20 [History Last Taken Unknown] hydroxyzine HCl 50 mg tablet 50 mg PO TID 09/18/20 [History Last Taken Unknown] lisinopril 2.5 mg tablet 5 mg PO DAILY #30 tablet 09/18/20 [Rx Last Taken Unknown] mirabegron 25 mg tablet,extended release 24 hr 100 mg PO Q24H tab 09/18/20 [History Last Taken Unknown] nitroglycerin 0.4 mg sublingual tablet 0.4 mg SL ONCE #25 tablet 09/18/20 [Rx Last Taken Unknown] ondansetron 4 mg disintegrating tablet 4 mg PO Q8H PRN PRN #30 tab 09/18/20 [Rx Last Taken Unknown] pantoprazole 40 mg tablet,delayed release 40 mg PO DAILY #30 tablet 09/18/20 [Rx Last Taken Unknown] potassium chloride 20 mEq tablet,extended release 20 meq PO DAILY 09/18/20 [History Last Taken Unknown] sucralfate 1 gram tablet 1 g PO 4X/DAY #120 tablet 09/18/20 [Rx Last Taken Unknown] trazodone 50 mg tablet 50 mg PO QHS PRN #30 tablet 09/18/20 [Rx Last Taken Unknown] acidophilus-pectin, citrus [Acidophilus Probiotic] 10 cap PO DAILY 09/23/20 [History Last Taken Unknown] donepezil [Aricept] 20 mg PO DAILY 09/23/20 [History Last Taken Unknown] duloxetine [Cymbalta] 30 mg PO BID 09/23/20 [History Last Taken Unknown] Allergy/AdvReac Type Severity Reaction Status Date / Time indomethacin [From Indocin] Allergy Hives Verified 09/23/20 15:04 indomethacin sodium Allergy Hives Verified 09/23/20 15:04 [From Indocin] iodine Allergy Hives Verified 09/23/20 15:04 propoxyphene napsylate Allergy Out of Verified 09/23/20 15:04 [From Darvocet-N] control aripiprazole [From Abilify] AdvReac Other Verified 09/23/20 15:04 aspirin AdvReac Upset Verified 09/23/20 15:04 Stomach clindamycin AdvReac Nausea Verified 09/23/20 15:04 metformin AdvReac Other Verified 09/23/20 15:04 sumatriptan [From Imitrex] AdvReac Vomiting Verified 09/23/20 15:04 Family History Father Cancer Lung cancer Mother Cancer Pancreatic cancer Surgical History History of amputation of left great toe History of back surgery History of cervical discectomy History of coronary artery stent placement (04/08/16) History of left knee surgery History of loop recorder (06/2014) History of tonsillectomy and adenoidectomy Social History (Updated 09/23/20 @ 19:[address] Shannan Cameron MD) household members: none Smoking Status: Current every day smoker tobacco type: cigarettes Smoking packs per day: 0.5 Smoking cigarettes per day: 10.0 alcohol intake: never substance use type: does not use caffeine: Yes Type: coffee Number of servings: 1 what type of physical activity do you participate in: none and other details: Physical Therapy ROS ROS ED Constitutional Constitutional ED: Denies chills, fever(s), subjective or sweats Eyes Eyes: Denies blurry vision or change in vision ENT ENT ED: Denies ear pain or rhinorrhea Cardiovascular Cardiovascular: Reports chest pain; Denies racing heartbeat Respiratory/Chest Respiratory/Chest: Denies cough or dyspnea Gastrointestinal Gastrointestinal: Reports nausea; Denies abdominal pain or vomiting Genitourinary Genitourinary ED: Denies dysuria or hematuria Musculoskeletal Musculoskeletal: Denies arthralgias or myalgias Integumentary Denies abscess or rash Neurologic Neurologic: Denies headache(s) or weakness Psychiatric Psychiatric: Denies anxiety or depression Endocrine Endocrinology: Denies polydipsia or polyuria EXAM Physical Exam Const Vital Signs: 09/23/20 14:58 09/23/20 15:04 09/23/20 16:07 Temperature 97.8 F Temperature Source Oral Pulse Rate 82 74 Respiratory Rate 14 15 Respiratory Effort Normal Non-Labored Blood Pressure 118/66 129/68 H Blood Pressure Mean 83 88 Pulse Ox 98 99 Oxygen Delivery Method Room Air Room Air 09/23/20 16:08 09/23/20 17:02 09/23/20 18:16 Temperature Temperature Source Pulse Rate 64 69 Respiratory Rate 19 H 19 H Respiratory Effort Blood Pressure 114/67 Blood Pressure Mean 82 Pulse Ox 98 98 98 Oxygen Delivery Method Room Air Room Air Room Air Positive well nourished General Appearance ED: NAD HEENT normocephalic and atraumatic Eyes PERRL and EOMs intact bilaterally Resp normal respiratory effort Effort and Inspection: respiratory distress Cardio regular rate and regular rhythm Extremity normal to inspection General Extremety ED: Negative for edema or tenderness General Extremity: Negative for edema Neuro oriented x3 Sensorium / Orientation: awake and alert Psych mental status grossly normal Attitude: No agitated Mood & Affect: Negative for anxious Skin no rashes or lesions noted and no wounds Heart Score History: Moderately Suspicious ECG: Nonspecific Repolarization Age: >/= 65 years Risk Factors: >/= 3 Risk Factors or History of CAD Score: 6 MDM MDM MDM Narrative Medical decision making narrative: Patient presenting with chest pain which has been fairly constant since 1330. EKG performed on arrival shows a sinus rhythm at 77 bpm as interpreted by myself. There is a subtle change in V6 with some T wave inversion/depression which is new from previous EKG 30 Aug 2020. Patient's lab work-up shows a white blood cell count 7.9, hemoglobin 10.8, platelets 275 electrolytes and renal function are unremarkable. Troponin is initially negative. D-dimer is 0.55 and age-adjusted is within normal limits. Chest x- ray is interpreted by myself shows no acute cardiopulmonary process. Patient has delta EKG which shows the same subtle irregularity and lead V6 but a ventricular 69/min without other new changes. Delta troponin is negative. Heart score is 6. Patient had recent stress test last month which she states was good. I was able to review this. Patient does state that her nitroglycerin did not help her chest pain x2. She was given morphine which did help her chest pain but on reevaluation she states her pain had come back. This was just prior to her delta EKG and troponin. This was discussed with Dr. Tariq who recommended the patient be admitted for observation. Patient amenable to this plan. She was given aspirin by EMS prior to arrival. She is stable on transfer to the medical floor. Impression: 1. Chest pain Lab Data Attestation: I reviewed the patient's lab results. Labs: Laboratory Results - last 24 hr 09/23/20 09/23/20 09/23/20 14:47 14:47 14:47 WBC 7.9 RBC 3.66 L Hgb 10.8 L Hct 35.6 L MCV 97.3 MCH 29.5 MCHC 30.3 L RDW Std Deviation 53.8 H RDW Coeff of Yeimi 15.0 H Plt Count 275 MPV 10.7 Immature Gran % (Auto) 0.300 Neut % (Auto) 69.4 Lymph % (Auto) 17.1 L George % (Auto) 7.9 Eos % (Auto) 4.0 Baso % (Auto) 1.3 H Absolute Neuts (auto) 5.5 Absolute Lymphs (auto) 1.36 Nucleated RBC % 0 D-Dimer Quant (PE/DVT) Cancelled Sodium 133 L Potassium 4.9 Chloride 103 Carbon Dioxide 23.0 Anion Gap 7 BUN 22 H Creatinine 0.89 Estim Creat Clear Calc 56.71 Est GFR (MDRD) Af Amer 82 Est GFR (MDRD) Non-Af 68 BUN/Creatinine Ratio 24.7 H Glucose 218 H Calcium 9.0 Magnesium Troponin I < 0.015 09/23/20 09/23/20 09/23/20 15:40 18:40 18:40 WBC RBC Hgb Hct MCV MCH MCHC RDW Std Deviation RDW Coeff of Yeimi Plt Count MPV Immature Gran % (Auto) Neut % (Auto) Lymph % (Auto) George % (Auto) Eos % (Auto) Baso % (Auto) Absolute Neuts (auto) Absolute Lymphs (auto) Nucleated RBC % D-Dimer Quant (PE/DVT) 0.55 H* Sodium Potassium Chloride Carbon Dioxide Anion Gap BUN Creatinine Estim Creat Clear Calc Est GFR (MDRD) Af Amer Est GFR (MDRD) Non-Af BUN/Creatinine Ratio Glucose Calcium Magnesium 2.0 Troponin I < 0.015 Radiography Diagnostic Testing: Radiology Impression Chest X-Ray 09/23/20 16:06 IMPRESSION: No airspace consolidation or pleural effusion. Electronically Signed: Conrad Schwartz MD ([place]) at 16:17 EDT , Service support , Discharge Plan Disposition Disposition: Acute Care Hospital [facility] Discharge Date/Time: 09/23/20 19:36
[2020-09-23 15:42] LABS: Anion Gap 7 (5-15); BUN 22 mg/dL (7-18); BUN/Creat Ratio 24.7 RATIO (10-20); Chloride 103 mmol/L (98-107); Creatinine, Serum 0.89 mg/dL (0.55-1.02); EST Glomerular Filtration Rate 68 mL/min (>60); Est Glom Filt Rate - Afr Amer 82 mL/min (>60); Estimated Creatinine Clearance 56.71 ml/min; Glucose 218 mg/dL (74-106); Potassium 4.9 mmol/L (3.5-5.1); Sodium Level 133 mmol/L (136-145)
[2020-09-23] MEDS: Ondansetron 4 MG/2 ML Vial IV (15:58)
[2020-09-23] MEDS: Morphine 4 MG/ML Syringe IV ×2 (15:58→18:14)
--- NOTE | 2020-09-23 16:06 | RAD_ITS ---
STUDY: X-RAY CHEST REASON FOR EXAM: Female, 64 years old. chest pain TECHNIQUE: AP COMPARISON: 08/30/2020 FINDINGS: Fusion hardware of the cervical spine. EKG leads project over the chest. The lungs are clear and expanded. There is no demonstrated pleural abnormality. Normal size heart. Normal mediastinum and sara. Normal visualized pulmonary arteries. There is atherosclerotic tortuosity of the aortic arch and descending thoracic aorta. No acute bony process. There is no demonstrated abnormality of the visualized soft tissue structures of the upper abdomen. RAD/Chest 1 View (Portable) IMPRESSION: No airspace consolidation or pleural effusion. Electronically Signed: Conrad Schwartz MD ([place]) at 16:17 EDT , Service support ,
[2020-09-23 16:15] LABS: D-Dimer Quantitative (DVT/PE) 0.55 FEU/ug/m (0.27-0.49)
--- NOTE | 2020-09-23 18:20 | EKG12_ITS ---
Test Reason : CP Blood Pressure : / mmHG Vent. Rate : 077 BPM Atrial Rate : 077 BPM P-R Int : 144 ms QRS Dur : 080 ms QT Int : 388 ms P-R-T Axes : 031 -42 088 degrees QTc Int : 439 ms Normal sinus rhythm Left axis deviation Inferior infarct , age undetermined Anteroseptal infarct , age undetermined Abnormal ECG Confirmed by CATHERINE WITT, GRIS ([id number]), editor publications YUNG MUNGUIA ([id number]) on 09/26/2020 12:48:37 PM Referred By: RAN Confirmed By:GRIS ALEXANDER MD
--- NOTE | 2020-09-23 18:43 | PCM.HP.STD ---
HPI - General General Date of Service: 09/23/20 Chief Complaint: Chest pain HPI Narrative The patient is a 64 y/o F w/ PMHx: Hx VTE, Chronic normocytic anemia, Obesity, Chronic COPD w/ ongoing tobacco use, HTN, HLD, Hx mural thrombus w/ Acute CA STEMI/CAD, Takotsubo syndrome/Ischemic Cardiomyopathy, IBS with diarrhea, Diabetes mellitus type II, Anxiety and Depression, Multiple Sclerosis, BRYAN, PAF, RLS, Chronic back pain/DDD recently admitted 08/14/20 secondary to onset chest pain with unremarkable stress testing at that time and discharge with early cardiac follow-up with noted agreement of atypical discomfort and alterations to her regimen who now re-presents to the [facility] ED on 09/23/20 with history of onset chest discomfort, midsternal with radiation to the left upper extremity described as an achy and heaviness in nature with associated nausea with no specific dyspnea or diaphoresis associated starting at approximately 1330 following PT at ~ noon with self administration of nitroglycerin as well as aspirin therapy per EMS with continued discomfort despite these interventions. She rated the discomfort 7/10 and noted the onset when she was seated and had just eaten a banana. She currently reports the pain is completely resolved after morphine. Work-up in the ED included T 97.8, heart rate 82, BP 118/66, respiratory rate 14, 98% on room air, CBC with WBC 7.9, hemoglobin 10.8, platelet 275 without marked shift, BMP with sodium 133, BUN/creatinine 22/0.89, glucose 218, troponin less than 0.015, D-dimer 0.55, chest x-ray without acute cardiopulmonary findings, EKG with SR without acute evidence of ischemia. ED discussed case with Cardiology who recommended admission and evaluation. [facility] Medical History Anxiety Apical mural thrombus with acute CA Atherosclerotic heart disease of [place] coronary artery without angina pectoris Cervical spinal stenosis Chronic systolic (congestive) heart failure COPD (chronic obstructive pulmonary disease) Diabetes mellitus type 2 in nonobese Essential (primary) hypertension History of ST elevation myocardial infarction (STEMI) IBS (irritable bowel syndrome) Irritable bowel syndrome with diarrhea Ischemic cardiomyopathy Left ventricular hypertrophy Major depression Multiple sclerosis Nicotine abuse BRYAN (obstructive sleep apnea) Paroxysmal atrial fibrillation RLS (restless legs syndrome) Suicidal ideation Tachycardia Takotsubo syndrome Vitamin B12 deficiency Home Medications aspirin 81 mg PO DAILY 10/21/16 [History Last Taken 08/14/20 09:00] albuterol sulfate 2 puff INHALATION Q6H PRN PRN 10/23/17 [History Last Taken 06/08/19] ropinirole 0.5 mg tablet 1 mg PO QHS tablet 08/21/19 [History Last Taken 08/13/20] conj estrog-medroxyprogest raquel 1 tablet PO DAILY 09/20/19 [History Last Taken 08/14/20 09:00] teriflunomide 14 mg PO DAILY 09/20/19 [History Last Taken 08/14/20 09:00] modafinil 200 mg PO DAILY 12/12/19 [History Last Taken 08/14/20 09:00] pioglitazone 30 mg PO DAILY 12/25/19 [History Last Taken 12/25/19 21:00] ropinirole 1 mg PO LUNCH 12/25/19 [History Last Taken 08/14/20 13:00] dicyclomine 20 mg tablet 20 mg PO BID PRN #180 tablet 03/15/20 [Rx Last Taken 08/14/20 13:00] clopidogrel 75 mg tablet 75 mg PO DAILY #90 tablet 05/14/20 [Rx Last Taken 08/14/20 09:00] acetaminophen 1,000 mg PO TID PRN #1 tablet 07/29/20 [Rx Last Taken Unknown] isosorbide mononitrate 30 mg tablet,extended release 24 hr 30 mg PO DAILY #30 tablet 08/06/20 [Rx Last Taken 08/14/20 09:00] blood sugar diagnostic #100 each 08/10/20 [Rx Last Taken Unknown] blood-glucose meter #1 each 08/10/20 [Rx Last Taken Unknown] ondansetron HCl 8 mg tablet 8 mg PO Q8H PRN PRN #20 tab 08/10/20 [Rx Last Taken Unknown] ascorbic acid (vitamin C) 500 mg PO DAILY #30 tab.chew 08/17/20 [Rx Last Taken Unknown] ferrous sulfate 325 mg PO DAILY #30 tablet 08/17/20 [Rx Last Taken Unknown] glimepiride 4 mg PO BID #0 08/17/20 [Rx Last Taken 08/14/20 09:00] atorvastatin 40 mg tablet 40 mg PO DAILY #30 tab 09/18/20 [Rx Last Taken Unknown] carvedilol 6.25 mg tablet 12.5 mg PO BID #60 tab 09/18/20 [Rx Last Taken Unknown] cholecalciferol (vitamin D3) 25 mcg (1,000 unit) capsule 50 mcg PO DAILY cap 09/18/20 [History Last Taken Unknown] hydroxyzine HCl 50 mg tablet 50 mg PO TID 09/18/20 [History Last Taken Unknown] lisinopril 2.5 mg tablet 5 mg PO DAILY #30 tablet 09/18/20 [Rx Last Taken Unknown] mirabegron 25 mg tablet,extended release 24 hr 100 mg PO Q24H tab 09/18/20 [History Last Taken Unknown] nitroglycerin 0.4 mg sublingual tablet 0.4 mg SL ONCE #25 tablet 09/18/20 [Rx Last Taken Unknown] ondansetron 4 mg disintegrating tablet 4 mg PO Q8H PRN PRN #30 tab 09/18/20 [Rx Last Taken Unknown] pantoprazole 40 mg tablet,delayed release 40 mg PO DAILY #30 tablet 09/18/20 [Rx Last Taken Unknown] potassium chloride 20 mEq tablet,extended release 20 meq PO DAILY 09/18/20 [History Last Taken Unknown] sucralfate 1 gram tablet 1 g PO 4X/DAY #120 tablet 09/18/20 [Rx Last Taken Unknown] trazodone 50 mg tablet 50 mg PO QHS PRN #30 tablet 09/18/20 [Rx Last Taken Unknown] acidophilus-pectin, citrus [Acidophilus Probiotic] 10 cap PO DAILY 09/23/20 [History Last Taken Unknown] donepezil [Aricept] 20 mg PO DAILY 09/23/20 [History Last Taken Unknown] duloxetine [Cymbalta] 30 mg PO BID 09/23/20 [History Last Taken Unknown] Allergy/AdvReac Type Severity Reaction Status Date / Time indomethacin [From Indocin] Allergy Hives Verified 09/23/20 15:04 indomethacin sodium Allergy Hives Verified 09/23/20 15:04 [From Indocin] iodine Allergy Hives Verified 09/23/20 15:04 propoxyphene napsylate Allergy Out of Verified 09/23/20 15:04 [From Darharjeetcet-N] control aripiprazole [From Abilify] AdvReac Other Verified 09/23/20 15:04 aspirin AdvReac Upset Verified 09/23/20 15:04 Stomach clindamycin AdvReac Nausea Verified 09/23/20 15:04 metformin AdvReac Other Verified 09/23/20 15:04 sumatriptan [From Imitrex] AdvReac Vomiting Verified 09/23/20 15:04 Family History Father Cancer Lung cancer Mother Cancer Pancreatic cancer Surgical History History of amputation of left great toe History of back surgery History of cervical discectomy History of coronary artery stent placement (04/08/16) History of left knee surgery History of loop recorder (06/2014) History of tonsillectomy and adenoidectomy Social History (Updated 09/23/20 @ 19:[address] Shannan Cameron MD) household members: none Smoking Status: Current every day smoker tobacco type: cigarettes Smoking packs per day: 0.5 Smoking cigarettes per day: 10.0 alcohol intake: never substance use type: does not use caffeine: Yes Type: coffee Number of servings: 1 what type of physical activity do you participate in: none and other details: Physical Therapy ROS ROS Narrative Admission Review of Systems: CONSTITUTIONAL: No weight loss, fever, chills, + weakness or fatigue. HEENT: Eyes: No visual loss, blurred vision, double vision or yellow sclerae. Ears, Nose, Throat: No hearing loss, sneezing, congestion, runny nose or sore throat. SKIN: No rash or itching, lesions, wounds. CARDIOVASCULAR: + chest pain, chest pressure or chest discomfort, No palpitations, edema, orthopnea, syncopal events. RESPIRATORY: No shortness of breath, cough or sputum, wheezing, hemoptysis. GASTROINTESTINAL: No anorexia, nausea, vomiting or diarrhea, abdominal pain, melena, BRBPR. GENITOURINARY: No dysuria, frequency, urgency or retention. NEUROLOGICAL: No headache, dizziness, syncope, paralysis, ataxia, numbness or tingling in the extremities, focal weakness, change in bowel or bladder control, seizure. MUSCULOSKELETAL:+ muscle, back pain, joint pain or stiffness. HEMATOLOGIC: anemia, bleeding or bruising. LYMPHATICS: No enlarged nodes. No history of splenectomy. PSYCHIATRIC:+ history of depression or anxiety. ENDOCRINOLOGIC: No reports of sweating, cold or heat intolerance. No polyuria or polydipsia. ALLERGIES: No history of asthma, hives, eczema or rhinitis. Vital Signs Vital Signs Vital Signs: 09/23/20 14:58 09/23/20 15:04 09/23/20 16:07 Temperature 97.8 F Temperature Source Oral Pulse Rate 82 74 Respiratory Rate 14 15 Respiratory Effort Normal Non-Labored Blood Pressure 118/66 129/68 H Blood Pressure Mean 83 88 Pulse Ox 98 99 Oxygen Delivery Method Room Air Room Air 09/23/20 16:08 09/23/20 17:02 09/23/20 18:16 Temperature Temperature Source Pulse Rate 64 69 Respiratory Rate 19 H 19 H Respiratory Effort Blood Pressure 114/67 Blood Pressure Mean 82 Pulse Ox 98 98 98 Oxygen Delivery Method Room Air Room Air Room Air Weight Weight: 180 lb 12.465 oz Body Mass Index (BMI) 30.0 Physical Exam Narrative Physical Examination: General: awake, alert, oriented x 3 and cooperative, seated upright in the ED bed in no apparent distress, notes chest pain resolved. Skin: normal color, normal turgor, no icterus, no cyanosis. HEENT: AT/NC, EOMI, PERRLA, MMM, no carotid bruits or JVD noted. Lungs: Diminished, > bases, moderate effort, no rales, ronchi or wheezing. Heart: Regular rate and rhythm; no gallop, rub audible. Abdomen: soft, obese, NTTP, ND, normal BS, no HSM. Extremities: no cyanosis, clubbing, or edema. Neurological: patient awake, alert, oriented as noted, cognitive function intact; pupils equally reactive to light and accommodation, cranial nerves II-XII grossly normal, moving all 4 extremities, no focal deficits, strength mildly globally decreased secondary to acute presentation. She notes she has improved her strength with recent PT following SNF stay, now home. Psychiatric: affect appears normal, eating, no acute evidence of depressive or anxiety feelings. Lab / Micro Data Result Diagrams: 09/23/20 14:47 09/23/20 14:47 Labs: Laboratory Results - last 24 hr 09/23/20 09/23/20 09/23/20 14:47 14:47 14:47 WBC 7.9 RBC 3.66 L Hgb 10.8 L Hct 35.6 L MCV 97.3 MCH 29.5 MCHC 30.3 L RDW Std Deviation 53.8 H RDW Coeff of Yeimi 15.0 H Plt Count 275 MPV 10.7 Immature Gran % (Auto) 0.300 Neut % (Auto) 69.4 Lymph % (Auto) 17.1 L [place] % (Auto) 7.9 Eos % (Auto) 4.0 Baso % (Auto) 1.3 H Absolute Neuts (auto) 5.5 Absolute Lymphs (auto) 1.36 Nucleated RBC % 0 D-Dimer Quant (PE/DVT) Cancelled Sodium 133 L Potassium 4.9 Chloride 103 Carbon Dioxide 23.0 Anion Gap 7 BUN 22 H Creatinine 0.89 Estim Creat Clear Calc 56.71 Est GFR (MDRD) Af Amer 82 Est GFR (MDRD) Non-Af 68 BUN/Creatinine Ratio 24.7 H Glucose 218 H Calcium 9.0 Troponin I < 0.015 09/23/20 15:40 WBC RBC Hgb Hct MCV MCH MCHC RDW Std Deviation RDW Coeff of Yeimi Plt Count MPV Immature Gran % (Auto) Neut % (Auto) Lymph % (Auto) [place] % (Auto) Eos % (Auto) Baso % (Auto) Absolute Neuts (auto) Absolute Lymphs (auto) Nucleated RBC % D-Dimer Quant (PE/DVT) 0.55 H* Sodium Potassium Chloride Carbon Dioxide Anion Gap BUN Creatinine Estim Creat Clear Calc Est GFR (MDRD) Af Amer Est GFR (MDRD) Non-Af BUN/Creatinine Ratio Glucose Calcium Troponin I Radiology Impression Chest X-Ray 09/23/20 16:06 IMPRESSION: No airspace consolidation or pleural effusion. Electronically Signed: Conrad Schwartz MD (Brooks) at 16:17 EDT , Service support , Assessment & Plan Assessment/Plan (1) Chest pain: QUALIFIERS: Chest pain type: unspecified Qualified Code(s): R07.9 - Chest pain, unspecified PLAN: The patient is a 64 y/o F w/ PMHx: Hx VTE, Chronic normocytic anemia, Obesity, Chronic COPD w/ ongoing tobacco use, HTN, HLD, Hx mural thrombus w/ Acute CA STEMI/CAD, Takotsubo syndrome/Ischemic Cardiomyopathy, IBS with diarrhea, Diabetes mellitus type II, Anxiety and Depression, Multiple Sclerosis, BRYAN, PAF, RLS, Chronic back pain/DDD recently admitted 08/14/20 secondary to onset chest pain with unremarkable stress testing at that time and discharge with early cardiac follow-up with noted agreement of atypical discomfort and alterations to her regimen who now re-presents to the [facility] ED on 09/23/20 with history of onset chest discomfort. 1. Chest Pain: EKG in ED sinus rhythm with sinus rhythm with no acute evidence of ischemia, CXR w/ no acute cardiopulmonary findings, initial trop normal x1, dimer mildly elevated but normal age adjusted. Will admit to PCU, place on a monitored bed to assure no acute myocardial infarction with serial cardiac enzymes and EKGs. Given recent admission with negative stress testing will request Cardiology evaluation for consideration further evaluation including cardiac catheterization. Magnesium level requested. ASA, NG, morphine. 2. CAD, history of mural thrombus with history of STEMI w/ PCI: Status post prior STEMI, continue aspirin, Plavix, Coreg, lisinopril, statin therapy. 3. PAF: EKG with SR without acute evidence of ischemia, continued antiplt therapies, not anticoagulated, maintain on coreg regimen. 4. Hypertension: Continue home regimen including Coreg, isosorbide, lisinopril with hold parameters as needed, PRN hydralazine. 5. Hyperlipidemia: Continue home statin regimen. FLP recently performed thus will not repeat. 6. Takotsubo syndrome/ischemic cardiomyopathy/Chronic Systolic CHF: Continue aspirin, Plavix, Coreg, isosorbide, lisinopril, statin home regimen. 7. Diabetes mellitus type II: Hold oral home regimen, ADA diet until n.p.o. status, accu checks w/ ISS. 8. Chronic normocytic anemia/Fe deficiency anemia: Admission hemoglobin 10.8, baseline appears more recently 8-9, prior to this 10-11, continue to trend, continue Fe supplementation. 9. Anxiety and depression: Continue home duloxetine as well as trazodone nightly regimen. 10. Obesity: Weight loss and lifestyle changes encouraged. 11. Restless leg syndrome: Continue patient home Requip regimen. 12. Chronic COPD w/ ongoing tobacco use: Patient not on chronic oxygen nor on chronic inhalers, will have as needed albuterol, encourage head of bed and I-S, encourage tobacco cessation with NR if needed and RT consultation. 13. IBS with chronic diarrhea: Continue home as needed Bentyl regimen. 14. Hx VTE: Patient with history of VTE following CA with intracardiac thrombus, not chronically anticoagulated. 15. GERD: Continue home PPI. 16. BRYAN: BiPAP nightly. 17. Multiple Sclerosis w/ mild cognitive impairment: Continue patient home teriflunomide as well as donepezil regimen, fall precautions, 18. DVT prophylaxis: SCDs, Lovenox. Visit Charges OBSV E&M: 32351 Initial observation care L3
--- NOTE | 2020-09-23 21:01 | EKG12_ITS ---
Test Reason : CP ADMIT Blood Pressure : / mmHG Vent. Rate : 076 BPM Atrial Rate : 076 BPM P-R Int : 148 ms QRS Dur : 080 ms QT Int : 388 ms P-R-T Axes : 042 -28 077 degrees QTc Int : 436 ms Normal sinus rhythm Inferior infarct , age undetermined Anteroseptal infarct , age undetermined Abnormal ECG Confirmed by CATHERINE WITT, GRIS ([id number]), fashion editor YUNG MUNGUIA ([id number]) on 09/26/2020 1:07:34 PM Referred By: RILEY Confirmed By:GRIS ALEXANDER MD
--- NOTE | 2020-09-23 22:26 | EKG12_ITS ---
Test Reason : AM Blood Pressure : / mmHG Vent. Rate : 058 BPM Atrial Rate : 058 BPM P-R Int : 170 ms QRS Dur : 096 ms QT Int : 458 ms P-R-T Axes : 050 -35 098 degrees QTc Int : 449 ms Sinus bradycardia Left axis deviation Low voltage QRS Septal infarct , age undetermined Inferior infarct , age undetermined T wave abnormality, consider anterior ischemia Abnormal ECG Confirmed by CATHERINE WITT, GRIS ([id number]), rewrite editor YUNG MUNGUIA ([id number]) on 09/26/2020 1:23:33 PM Referred By: RILEY Confirmed By:GRIS ALEXANDER MD
--- NOTE | 2020-09-23 22:37 | CPS ---
talked to pt about bipap-does not have one at home and does not want to wear hospital one
[2020-09-23] MEDS: 0.9% Normal Saline 1,000 ML 100 ML IV (22:42)
[2020-09-23] MEDS: traZODone 50 MG Tablet PO (22:42)
[2020-09-23] MEDS: oxyCODONE 5 MG Tablet PO (22:43)
[2020-09-23] MEDS: hydrOXYzine PAM 25 MG Capsule 50 MG PO (22:47)
[2020-09-23] MEDS: Atorvastatin Calcium 40 MG Tablet PO (22:47)
[2020-09-23] MEDS: DULoxetine Hcl 30 MG Capsule PO (22:47)
[2020-09-23] MEDS: Pramipexole Di-HCl 0.5 MG Tablet PO (22:48)
[2020-09-23] MEDS: Sucralfate 1 GM Tablet PO (22:48)
[2020-09-23] MEDS: Carvedilol 12.5 MG Tablet PO (22:48)
[2020-09-23] MEDS: Insulin Lispro 100 UNIT/ML INSULN.PEN SC (22:54)
[2020-09-24] VITALS (12 sets, daily range): BP systolic 92–142; BP diastolic 30–72; PULSE 56–106; RESP 16–18; TEMP 36.4–36.9; O2SAT 92–98
[2020-09-24 00:01] LABS: Bedside Glucose 194 mg/dL (70-110)
--- NOTE | 2020-09-24 00:11 | NURSING ---
Addendum entered by Renetta Aguila 09/24/20 00:14: Note should have been entered for 2240 Original Note: Pt c/o chest pain rated at 8/10, EKG and VS obtained , Rachel AJ sent text with ekg result to Dr Bryant. States NO STEMI, Pt was medicated with oxycodone per c/o pain per her request.
--- NOTE | 2020-09-24 05:55 | EKG12_ITS ---
Test Reason : CP Blood Pressure : / mmHG Vent. Rate : 077 BPM Atrial Rate : 077 BPM P-R Int : 170 ms QRS Dur : 076 ms QT Int : 388 ms P-R-T Axes : 049 -26 079 degrees QTc Int : 439 ms Normal sinus rhythm Inferior infarct , age undetermined Anteroseptal infarct , age undetermined Abnormal ECG Confirmed by CATHERINE WITT, GRIS ([id number]), editorial specialist YUNG MUNGUIA ([id number]) on 09/26/2020 1:23:59 PM Referred By: RILEY Confirmed By:GRIS ALEXANDER MD
[2020-09-24 06:16] LABS: Absolute Lymphocyte Count 1.99 X10^3/uL (0.83-4.51); Absolute Neutrophil Count 4.2 X10^3/uL (2.0-7.7); Basophil# 0.08 X10^3/uL; Basophil% 1.1 % (0-1); Eosinophil# 0.32 X10^3/uL; Eosinophils% 4.4 % (0-5); Hematocrit 33.3 % (37-47); Hemoglobin 10.1 g/dL (12.0-15.0); Lymphocyte # 1.99 X10^3/ul (0.83-4.51); Lymphocyte % 27.3 % (19-41); Mean Corp Hgb Conc 30.3 g/dL (32-36); Mean Corpuscular Hgb 29.3 pg (27.0-32.0); Mean Corpuscular Volume 96.5 fL (81-99); Mean Platelet Vol. 10.3 fl (6.2-12.0); Monocyte# 0.71 X10^3/uL; Monocyte% 9.7 % (0-10); NRBC Flagged by Analyzer 0 % (0-5); Neutrophil # 4.17 X10^3/uL (2.7-7.7); Neutrophil % 57.2 % (47-70); Platelet Count 256 K/mm3 (150-450); RBC Distribution Width CV 14.9 % (11.6-14.6); RBC Distribution Width SD 53.2 fl (35.1-43.9); Red Blood Count 3.45 M/mm3 (4.2-5.4); White Blood Count 7.3 K/mm3 (4.4-11.0)
[2020-09-24 06:45] LABS: ALB/GLOB Ratio 0.9 RATIO (0.9-2.4); AST(SGOT) 18 U/L (15-37); Alanine Aminotransfer ALT/SGPT 15 U/L (13-56); Albumin, Serum 2.8 g/dL (3.2-5.0); Alkaline Phosphatase 89 U/L (45-117); Anion Gap 6 (5-15); BUN 26 mg/dL (7-18); BUN/Creat Ratio 30.2 RATIO (10-20); Chloride 107 mmol/L (98-107); Creatinine, Serum 0.86 mg/dL (0.55-1.02); EST Glomerular Filtration Rate 70 mL/min (>60); Est Glom Filt Rate - Afr Amer 85 mL/min (>60); Estimated Creatinine Clearance 58.68 ml/min; Glucose 151 mg/dL (74-106); Potassium 3.9 mmol/L (3.5-5.1); Protein, Total 5.8 g/dL (6.4-8.2); Sodium Level 136 mmol/L (136-145)
[2020-09-24] MEDS: oxyCODONE 5 MG Tablet PO (06:47)
[2020-09-24] MEDS: Aspirin E.C. 81 MG Tablet PO (06:48)
[2020-09-24] MEDS: hydrOXYzine PAM 25 MG Capsule 50 MG PO ×3 (06:48→21:23)
[2020-09-24] MEDS: Lisinopril 5 MG Tablet PO (06:49)
[2020-09-24] MEDS: Clopidogrel Bisulfate 75 MG Tablet PO (06:49)
[2020-09-24] MEDS: Sucralfate 1 GM Tablet PO ×4 (06:49→21:22)
[2020-09-24 07:06] LABS: Bedside Glucose 165 mg/dL (70-110)
[2020-09-24] MEDS: Ondansetron 4 MG/2 ML Vial IV ×2 (08:21→17:10)
[2020-09-24] MEDS: 0.9% Normal Saline 1,000 ML 100 ML IV (08:29)
[2020-09-24] MEDS: Dicyclomine 10 MG Capsule 20 MG PO (08:29)
[2020-09-24] MEDS: Morphine 2 MG/ML Syringe IV ×3 (09:55→22:39)
--- NOTE | 2020-09-24 10:33 | PN.HOSP_ITS ---
Subjective Subjective Patient seen and examined. She was admitted with a complaint of chest pain. She still complains of chest pain this morning. It does appear to reproducible with palpation. She says the pain improved with Percocet. Review of systems otherwise negative. She has remained hemodynamically stable. Objective Data Objective Data Vital Signs: Vital Signs Temp Pulse Resp BP Pulse Ox 97.8 F 64 18 142/58 H 94 09/24/20 06:55 09/24/20 07:00 09/24/20 06:55 09/24/20 06:55 09/24/20 07:43 Oxygen Delivery Method Room Air Weight: 166 lb 3.657 oz Body Mass Index (BMI) 27.6 Intake & Output: Intake and Output for Last 24 Hours 09/22/20 09/23/20 09/24/20 23:59 23:59 23:59 Intake Total 1618.33 / 1618.33 Balance 1618.33 / 1618.33 Lab / Micro Data Result Diagrams: 09/24/20 05:37 09/24/20 05:37 Labs: Laboratory Results - last 24 hr 09/23/20 09/23/20 09/23/20 14:47 14:47 14:47 WBC 7.9 RBC 3.66 L Hgb 10.8 L Hct 35.6 L MCV 97.3 MCH 29.5 MCHC 30.3 L RDW Std Deviation 53.8 H RDW Coeff of Yeimi 15.0 H Plt Count 275 MPV 10.7 Immature Gran % (Auto) 0.300 Neut % (Auto) 69.4 Lymph % (Auto) 17.1 L [place] % (Auto) 7.9 Eos % (Auto) 4.0 Baso % (Auto) 1.3 H Absolute Neuts (auto) 5.5 Absolute Lymphs (auto) 1.36 Nucleated RBC % 0 D-Dimer Quant (PE/DVT) Cancelled Sodium 133 L Potassium 4.9 Chloride 103 Carbon Dioxide 23.0 Anion Gap 7 BUN 22 H Creatinine 0.89 Estim Creat Clear Calc 56.71 Est GFR (MDRD) Af Amer 82 Est GFR (MDRD) Non-Af 68 BUN/Creatinine Ratio 24.7 H Glucose 218 H Calcium 9.0 Magnesium Total Bilirubin AST ALT Alkaline Phosphatase Troponin I < 0.015 Total Protein Albumin Globulin Albumin/Globulin Ratio POC Glucose 09/23/20 09/23/20 09/23/20 15:40 18:40 18:40 WBC RBC Hgb Hct MCV MCH MCHC RDW Std Deviation RDW Coeff of Yeimi Plt Count MPV Immature Gran % (Auto) Neut % (Auto) Lymph % (Auto) [place] % (Auto) Eos % (Auto) Baso % (Auto) Absolute Neuts (auto) Absolute Lymphs (auto) Nucleated RBC % D-Dimer Quant (PE/DVT) 0.55 H* Sodium Potassium Chloride Carbon Dioxide Anion Gap BUN Creatinine Estim Creat Clear Calc Est GFR (MDRD) Af Amer Est GFR (MDRD) Non-Af BUN/Creatinine Ratio Glucose Calcium Magnesium 2.0 Total Bilirubin AST ALT Alkaline Phosphatase Troponin I < 0.015 Total Protein Albumin Globulin Albumin/Globulin Ratio POC Glucose 09/23/20 09/24/20 09/24/20 20:57 05:37 05:37 WBC 7.3 RBC 3.45 L Hgb 10.1 L Hct 33.3 L MCV 96.5 MCH 29.3 MCHC 30.3 L RDW Std Deviation 53.2 H RDW Coeff of Yeimi 14.9 H Plt Count 256 MPV 10.3 Immature Gran % (Auto) 0.300 Neut % (Auto) 57.2 Lymph % (Auto) 27.3 [place] % (Auto) 9.7 Eos % (Auto) 4.4 Baso % (Auto) 1.1 H Absolute Neuts (auto) 4.2 Absolute Lymphs (auto) 1.99 Nucleated RBC % 0 D-Dimer Quant (PE/DVT) Sodium 136 Potassium 3.9 Chloride 107 Carbon Dioxide 23.0 Anion Gap 6 BUN 26 H Creatinine 0.86 Estim Creat Clear Calc 58.68 Est GFR (MDRD) Af Amer 85 Est GFR (MDRD) Non-Af 70 BUN/Creatinine Ratio 30.2 H Glucose 151 H Calcium 9.0 Magnesium Total Bilirubin 0.40 AST 18 ALT 15 Alkaline Phosphatase 89 Troponin I Total Protein 5.8 L Albumin 2.8 L Globulin 3.0 Albumin/Globulin Ratio 0.9 POC Glucose 194 H 09/24/20 06:52 WBC RBC Hgb Hct MCV MCH MCHC RDW Std Deviation RDW Coeff of Yeimi Plt Count MPV Immature Gran % (Auto) Neut % (Auto) Lymph % (Auto) [place] % (Auto) Eos % (Auto) Baso % (Auto) Absolute Neuts (auto) Absolute Lymphs (auto) Nucleated RBC % D-Dimer Quant (PE/DVT) Sodium Potassium Chloride Carbon Dioxide Anion Gap BUN Creatinine Estim Creat Clear Calc Est GFR (MDRD) Af Amer Est GFR (MDRD) Non-Af BUN/Creatinine Ratio Glucose Calcium Magnesium Total Bilirubin AST ALT Alkaline Phosphatase Troponin I Total Protein Albumin Globulin Albumin/Globulin Ratio POC Glucose 165 H Radiography Diagnostic Testing: Radiology Impression Chest X-Ray 09/23/20 16:06 IMPRESSION: No airspace consolidation or pleural effusion. Electronically Signed: Conrad Schwartz MD (Brooks) at 16:17 EDT , Service support , Physical Exam Const alert, oriented x3 and no apparent distress Exam Limitations: no limitations HEENT head/scalp atraumatic Head and Scalp: normocephalic Eyes PERRL, EOMs intact bilaterally and conjunctivae normal Neck no lymphadenopathy, supple and no JVD Resp normal respiratory effort, no retractions and no use of accessory muscles Cardio regular rate, regular rhythm, S1 normal heart sound, S2 normal heart sound and no murmurs GI normal to inspection, nondistended, normoactive bowel sounds, soft to palpation, non-tender and non-distended Extremity normal to inspection, full ROM and no clubbing, cyanosis or edema Peripheral Pulses: Yes pulses 2+ throughout Skin no rashes or lesions noted Neuro CN's II-XII intact bilaterally and moves all extremities Sensorium / Orientation: awake Psych affect normal Assessment & Plan Assessment/Plan (1) Chest pain: QUALIFIERS: Chest pain type: unspecified Qualified Code(s): R07.9 - Chest pain, unspecified PLAN: #Chest pain * Troponins x3 were negative. * She did have a negative stress test in July 2019. Cardiology therefore consulted. * Sublingual nitroglycerin as needed. P.o. aspirin 81 mg daily. * D-dimer was also normal limits when adjusted for age. * await cardiology rec's. * #CAD: S/p stents. On aspirin and Plavix as well as Coreg, lisinopril and statins. #Hypertension: On carvedilol and Imdur as well as lisinopril. IV hydralazine as needed. #Paroxysmal A. fib: Currently in sinus rhythm. Not anticoagulated. On Coreg. #Hyperlipidemia: on statin. #HFrEF: not in exacerbation. has a history of takotsubo's cardiomyopathy. Stable #COPD: not in exacerbation. breathing treatment with bronchodilators. Give oxygen as needed for shortness of breath. #History of IBS with chronic diarrhea: on bentyl prn. #GERD: on PPI #BRYAN: on BIPAP qhs #History of multiple sclerosis: On teriflunomide as well as donepezil. DVT prophylaxis: Lovenox Visit Charges OBSV E&M: 66641 Subsequent observation care L2
[2020-09-24] MEDS: Pantoprazole Sodium 40 MG Tablet PO (11:34)
[2020-09-24] MEDS: Pramipexole Di-HCl 0.5 MG Tablet PO ×2 (11:34→21:23)
[2020-09-24] MEDS: DULoxetine Hcl 30 MG Capsule PO ×2 (11:34→21:24)
[2020-09-24] MEDS: Ferrous Sulfate 325 MG Tablet PO (11:34)
[2020-09-24] MEDS: Donepezil HCl 10 MG Tablet 20 MG PO (11:35)
[2020-09-24] MEDS: Isosorbide Mononitrate 30 MG Tablet PO (11:35)
[2020-09-24] MEDS: Potassium Chloride Oral Tablet 20 MEQ PO (11:35)
[2020-09-24] MEDS: Enoxaparin 40 MG/0.4 ML Syringe SC (11:40)
[2020-09-24] MEDS: Insulin Lispro 100 UNIT/ML INSULN.PEN SC ×3 (11:44→21:30)
[2020-09-24 12:40] LABS: Bedside Glucose 158 mg/dL (70-110)
--- NOTE | 2020-09-24 13:24 | CON.PCM.CA_ITS ---
Assessment & Plan Assessment/Plan (1) Chest pain: QUALIFIERS: Chest pain type: unspecified Qualified Code(s): R07.9 - Chest pain, unspecified PLAN: She does have evidence of chest discomfort which is somewhat atypical. However she continues to have these episodes and has presented to the office numerous times. She underwent a stress test in July 2020 with no evidence of ischemia. At this juncture due to her previous history of coronary artery disease and stent placement it may be prudent to assess her coronary anatomy with a left heart catheterization. I did discuss the above with her and she agrees. Depending on the findings further recommendations will be made. Arrangements will be made for the procedure to be undertaken in a.m. The risks benefits and alternatives have been discussed with the patient she understands and agrees to proceed. (2) History of coronary artery stent placement: PLAN: She is status post previous angioplasty and stenting of the diagonal vessel in 2015. This will be reevaluated with the impending left heart catheterization. (3) Ischemic cardiomyopathy: PLAN: She did have evidence of Takotsubo cardiomyopathy, this has resolved and will be reevaluated with the left heart catheterization. (4) Essential (primary) hypertension: PLAN: Her blood pressure appears to be in under good control particular time. I would not make any changes to her medications. She will remain on the carvedilol and the low-dose lisinopril. Thank you for allowing me to participate in the care of your patient. Please don't hesitate to call if any issues arise. HPI Consult Data Date of Consult: 09/24/20 HPI Narrative Reason for Consultation: Chest discomfort HPI Narrative: ELO HERNANDEZ, is a 64 F who presents to the emergency room with chest discomfort. She says that she started experiencing chest heaviness as well as shortness in her chest. There was no radiation of the discomfort and it occurred without any activity. She has been having this discomfort on and off and actually mentioned this during her last office visit. She was admitted through the emergency room to the telemetry care unit and she ruled out for myocardial infarction. She has a history of coronary artery disease with stenting to her LAD and angioplasty of her second diagonal in March [address] elevation myocardial infarction. She was noted to have a left ventricle apical thrombus and cardiomyopathy with an ejection fraction of 25-30%. This was repeated in June 2016 and the ejection fraction had improved to 40% with no evidence of ventricular thrombus. With stress echo done in August of 2019 this improved to 55%. With no evidence of ischemia. You also do remember that she underwent a stress test in July of this year without any evidence of ischemia. Pt denies symptoms of CHF, palpitations, lightheadedness, dizziness, near syncopal or syncopal episodes. Pt denies edema or claudication issues. Pt. denies orthopnea, PND, fever, chills, blood in urine, blood in stool, or myalgi a. [facility] Medical History Anxiety Apical mural thrombus with acute [place] Atherosclerotic heart disease of [place] coronary artery without angina pectoris Cervical spinal stenosis Chronic systolic (congestive) heart failure COPD (chronic obstructive pulmonary disease) Diabetes mellitus type 2 in nonobese Essential (primary) hypertension History of ST elevation myocardial infarction (STEMI) IBS (irritable bowel syndrome) Irritable bowel syndrome with diarrhea Ischemic cardiomyopathy Left ventricular hypertrophy Major depression Multiple sclerosis Nicotine abuse BRYAN (obstructive sleep apnea) Paroxysmal atrial fibrillation RLS (restless legs syndrome) Suicidal ideation Tachycardia Takotsubo syndrome Vitamin B12 deficiency Home Medications aspirin 81 mg PO DAILY 10/21/16 [History Last Taken 08/14/20 09:00] albuterol sulfate 2 puff INHALATION Q6H PRN PRN 10/23/17 [History Last Taken 06/08/19] ropinirole 0.5 mg tablet 1 mg PO QHS tablet 08/21/19 [History Last Taken 08/13/20] conj estrog-medroxyprogest raquel 1 tablet PO DAILY 09/20/19 [History Last Taken 08/14/20 09:00] teriflunomide 14 mg PO DAILY 09/20/19 [History Last Taken 08/14/20 09:00] modafinil 200 mg PO DAILY 12/12/19 [History Last Taken 08/14/20 09:00] pioglitazone 30 mg PO DAILY 12/25/19 [History Last Taken 12/25/19 21:00] ropinirole 1 mg PO LUNCH 12/25/19 [History Last Taken 08/14/20 13:00] dicyclomine 20 mg tablet 20 mg PO BID PRN #180 tablet 03/15/20 [Rx Last Taken 08/14/20 13:00] clopidogrel 75 mg tablet 75 mg PO DAILY #90 tablet 05/14/20 [Rx Last Taken 08/14/20 09:00] acetaminophen 1,000 mg PO TID PRN #1 tablet 07/29/20 [Rx Last Taken Unknown] isosorbide mononitrate 30 mg tablet,extended release 24 hr 30 mg PO DAILY #30 tablet 08/06/20 [Rx Last Taken 08/14/20 09:00] blood sugar diagnostic #100 each 08/10/20 [Rx Last Taken Unknown] blood-glucose meter #1 each 08/10/20 [Rx Last Taken Unknown] ondansetron HCl 8 mg tablet 8 mg PO Q8H PRN PRN #20 tab 08/10/20 [Rx Last Taken Unknown] ascorbic acid (vitamin C) 500 mg PO DAILY #30 tab.chew 08/17/20 [Rx Last Taken Unknown] ferrous sulfate 325 mg PO DAILY #30 tablet 08/17/20 [Rx Last Taken Unknown] glimepiride 4 mg PO BID #0 08/17/20 [Rx Last Taken 08/14/20 09:00] atorvastatin 40 mg tablet 40 mg PO DAILY #30 tab 09/18/20 [Rx Last Taken Unknown] carvedilol 6.25 mg tablet 12.5 mg PO BID #60 tab 09/18/20 [Rx Last Taken Unknown] cholecalciferol (vitamin D3) 25 mcg (1,000 unit) capsule 50 mcg PO DAILY cap 09/18/20 [History Last Taken Unknown] hydroxyzine HCl 50 mg tablet 50 mg PO TID 09/18/20 [History Last Taken Unknown] lisinopril 2.5 mg tablet 5 mg PO DAILY #30 tablet 09/18/20 [Rx Last Taken Unknown] mirabegron 25 mg tablet,extended release 24 hr 100 mg PO Q24H tab 09/18/20 [History Last Taken Unknown] nitroglycerin 0.4 mg sublingual tablet 0.4 mg SL ONCE #25 tablet 09/18/20 [Rx Last Taken Unknown] ondansetron 4 mg disintegrating tablet 4 mg PO Q8H PRN PRN #30 tab 09/18/20 [Rx Last Taken Unknown] pantoprazole 40 mg tablet,delayed release 40 mg PO DAILY #30 tablet 09/18/20 [Rx Last Taken Unknown] potassium chloride 20 mEq tablet,extended release 20 meq PO DAILY 09/18/20 [History Last Taken Unknown] sucralfate 1 gram tablet 1 g PO 4X/DAY #120 tablet 09/18/20 [Rx Last Taken Unknown] trazodone 50 mg tablet 50 mg PO QHS PRN #30 tablet 09/18/20 [Rx Last Taken Unknown] acidophilus-pectin, citrus [Acidophilus Probiotic] 1 cap PO DAILY 09/23/20 [History Last Taken Unknown] donepezil [Aricept] 20 mg PO DAILY 09/23/20 [History Last Taken Unknown] duloxetine [Cymbalta] 30 mg PO BID 09/23/20 [History Last Taken Unknown] Allergy/AdvReac Type Severity Reaction Status Date / Time indomethacin [From Indocin] Allergy Hives Verified 09/23/20 15:04 indomethacin sodium Allergy Hives Verified 09/23/20 15:04 [From Indocin] iodine Allergy Hives Verified 09/23/20 15:04 propoxyphene napsylate Allergy Out of Verified 09/23/20 15:04 [From Darvocet-N] control aripiprazole [From Abilify] AdvReac Other Verified 09/23/20 15:04 aspirin AdvReac Upset Verified 09/23/20 15:04 Stomach clindamycin AdvReac Nausea Verified 09/23/20 15:04 metformin AdvReac Other Verified 09/23/20 15:04 sumatriptan [From Imitrex] AdvReac Vomiting Verified 09/23/20 15:04 Family History Father Cancer Lung cancer Mother Cancer Pancreatic cancer Surgical History History of amputation of left great toe History of back surgery History of cervical discectomy History of coronary artery stent placement (04/08/16) History of left knee surgery History of loop recorder (06/2014) History of tonsillectomy and adenoidectomy Social History household members: none Smoking Status: Current every day smoker tobacco type: cigarettes Smoking packs per day: 0.5 Smoking cigarettes per day: 10.0 alcohol intake: never substance use type: does not use caffeine: Yes Type: coffee Number of servings: 1 what type of physical activity do you participate in: none and other details: Physical Therapy ROS Constitutional Constitutional: Denies fever(s) or weight loss Eyes Eyes: Reports as per HPI ENT HEENT: Reports as per HPI Cardiovascular Cardiovascular: Reports chest pain, chest pain at rest and chest pain with activity Respiratory/Chest Respiratory/Chest: Reports dyspnea Gastrointestinal Gastrointestinal: Denies change in bowel habits, nausea, vomiting or weight changes Genitourinary Genitourinary: Denies difficulty urinating Musculoskeletal Musculoskeletal: Denies joint stiffness or muscle weakness Integumentary Integumentary: Denies lesions Neurologic Neurologic: Denies dizziness or syncope Psychiatric Psychiatric: Denies anxiety Endocrine Endocrinology: Denies excessive sweating or fatigue Hematologic/Lymphatic Hematologic/Lymphatic: Denies anemia Allergic/Immunologic Allergic/Immunologic: Denies seasonal rhinorrhea Physical Exam Const oriented x3 and healthy appearing Orientation / Consciousness: awake HEENT normocephalic Eyes PERRL and conjunctivae normal Neck supple, no JVD and no carotid bruits Chest inspection of chest normal Resp normal respiratory effort and clear to auscultation bilaterally Cardio Palpation: normal PMI Rate: regular rate Rhythm: regular rhythm Heart Sounds: S1 normal and S2 normal Peripheral Pulses: pulses 2+ throughout GI normal to inspection, nondistended, normoactive bowel sounds Extremity normal to inspection and no clubbing, cyanosis or edema Psych mental status grossly normal Objective Data Vital Signs: Vital Signs Temp Pulse Resp BP Pulse Ox 97.6 F L 66 18 92/30 L 97 09/24/20 11:25 09/24/20 11:25 09/24/20 11:25 09/24/20 11:25 09/24/20 11:25 Oxygen Delivery Method Room Air Weight: 166 lb 3.657 oz Body Mass Index (BMI) 27.6 Intake & Output: Intake and Output for Last 24 Hours 09/22/20 09/23/20 09/24/20 23:59 23:59 23:59 Intake Total 1738.33 / 1738.33 Balance 1738.33 / 1738.33 Lab / Micro Data Result Diagrams: 09/24/20 05:37 09/24/20 05:37 Labs: Laboratory Results - last 24 hr 09/23/20 09/23/20 09/23/20 14:47 14:47 14:47 WBC 7.9 RBC 3.66 L Hgb 10.8 L Hct 35.6 L MCV 97.3 MCH 29.5 MCHC 30.3 L RDW Std Deviation 53.8 H RDW Coeff of Yeimi 15.0 H Plt Count 275 MPV 10.7 Immature Gran % (Auto) 0.300 Neut % (Auto) 69.4 Lymph % (Auto) 17.1 L [place] % (Auto) 7.9 Eos % (Auto) 4.0 Baso % (Auto) 1.3 H Absolute Neuts (auto) 5.5 Absolute Lymphs (auto) 1.36 Nucleated RBC % 0 D-Dimer Quant (PE/DVT) Cancelled Sodium 133 L Potassium 4.9 Chloride 103 Carbon Dioxide 23.0 Anion Gap 7 BUN 22 H Creatinine 0.89 Estim Creat Clear Calc 56.71 Est GFR (MDRD) Af Amer 82 Est GFR (MDRD) Non-Af 68 BUN/Creatinine Ratio 24.7 H Glucose 218 H Calcium 9.0 Magnesium Total Bilirubin AST ALT Alkaline Phosphatase Troponin I < 0.015 Total Protein Albumin Globulin Albumin/Globulin Ratio POC Glucose 09/23/20 09/23/20 09/23/20 15:40 18:40 18:40 WBC RBC Hgb Hct MCV MCH MCHC RDW Std Deviation RDW Coeff of Yeimi Plt Count MPV Immature Gran % (Auto) Neut % (Auto) Lymph % (Auto) [place] % (Auto) Eos % (Auto) Baso % (Auto) Absolute Neuts (auto) Absolute Lymphs (auto) Nucleated RBC % D-Dimer Quant (PE/DVT) 0.55 H* Sodium Potassium Chloride Carbon Dioxide Anion Gap BUN Creatinine Estim Creat Clear Calc Est GFR (MDRD) Af Amer Est GFR (MDRD) Non-Af BUN/Creatinine Ratio Glucose Calcium Magnesium 2.0 Total Bilirubin AST ALT Alkaline Phosphatase Troponin I < 0.015 Total Protein Albumin Globulin Albumin/Globulin Ratio POC Glucose 09/23/20 09/24/20 09/24/20 20:57 05:37 05:37 WBC 7.3 RBC 3.45 L Hgb 10.1 L Hct 33.3 L MCV 96.5 MCH 29.3 MCHC 30.3 L RDW Std Deviation 53.2 H RDW Coeff of Yeimi 14.9 H Plt Count 256 MPV 10.3 Immature Gran % (Auto) 0.300 Neut % (Auto) 57.2 Lymph % (Auto) 27.3 [place] % (Auto) 9.7 Eos % (Auto) 4.4 Baso % (Auto) 1.1 H Absolute Neuts (auto) 4.2 Absolute Lymphs (auto) 1.99 Nucleated RBC % 0 D-Dimer Quant (PE/DVT) Sodium 136 Potassium 3.9 Chloride 107 Carbon Dioxide 23.0 Anion Gap 6 BUN 26 H Creatinine 0.86 Estim Creat Clear Calc 58.68 Est GFR (MDRD) Af Amer 85 Est GFR (MDRD) Non-Af 70 BUN/Creatinine Ratio 30.2 H Glucose 151 H Calcium 9.0 Magnesium Total Bilirubin 0.40 AST 18 ALT 15 Alkaline Phosphatase 89 Troponin I Total Protein 5.8 L Albumin 2.8 L Globulin 3.0 Albumin/Globulin Ratio 0.9 POC Glucose 194 H 09/24/20 09/24/20 06:52 11:42 WBC RBC Hgb Hct MCV MCH MCHC RDW Std Deviation RDW Coeff of Ye[place] Plt Count MPV Immature Gran % (Auto) Neut % (Auto) Lymph % (Auto) [place] % (Auto) Eos % (Auto) Baso % (Auto) Absolute Neuts (auto) Absolute Lymphs (auto) Nucleated RBC % D-Dimer Quant (PE/DVT) Sodium Potassium Chloride Carbon Dioxide Anion Gap BUN Creatinine Estim Creat Clear Calc Est GFR (MDRD) Af Amer Est GFR (MDRD) Non-Af BUN/Creatinine Ratio Glucose Calcium Magnesium Total Bilirubin AST ALT Alkaline Phosphatase Troponin I Total Protein Albumin Globulin Albumin/Globulin Ratio POC Glucose 165 H 158 H Cardiology Labs/Tests 09/23/20 14:47: WBC 7.9, RBC 3.66 L, Hgb 10.8 L, Hct 35.6 L, MCV 97.3, MCH 29.5, MCHC 30.3 L, Plt Count 275, MPV 10.7, Immature Gran % (Auto) 0.300, Neut % (Auto) 69.4, Lymph % (Auto) 17.1 L, [place] % (Auto) 7.9, Eos % (Auto) 4.0, Baso % (Auto) 1.3 H, Absolute Neuts (auto) 5.5, Nucleated RBC % 0 09/23/20 14:47: D-Dimer Quant (PE/DVT) Cancelled 09/23/20 14:47: Sodium 133 L, Potassium 4.9, Chloride 103, Carbon Dioxide 23.0, Anion Gap 7, BUN 22 H, Creatinine 0.89, Est GFR (MDRD) Af Amer 82, Est GFR (MDRD) Non-Af 68, BUN/Creatinine Ratio 24.7 H, Glucose 218 H, Calcium 9.0, Troponin I < 0.015 09/23/20 15:40: D-Dimer Quant (PE/DVT) 0.55 H* 09/23/20 18:40: Troponin I < 0.015 09/23/20 18:40: Magnesium 2.0 09/24/20 05:37: WBC 7.3, RBC 3.45 L, Hgb 10.1 L, Hct 33.3 L, MCV 96.5, MCH 29.3, MCHC 30.3 L, Plt Count 256, MPV 10.3, Immature Gran % (Auto) 0.300, Neut % (Auto) 57.2, Lymph % (Auto) 27.3, [place] % (Auto) 9.7, Eos % (Auto) 4.4, Baso % (Auto) 1.1 H, Absolute Neuts (auto) 4.2, Nucleated RBC % 0 09/24/20 05:37: Sodium 136, Potassium 3.9, Chloride 107, Carbon Dioxide 23.0, Anion Gap 6, BUN 26 H, Creatinine 0.86, Est GFR (MDRD) Af Amer 85, Est GFR (MDRD) Non-Af 70, BUN/Creatinine Ratio 30.2 H, Glucose 151 H, Calcium 9.0, Total Bilirubin 0.40 Rhythm: EKG: Normal sinus rhythm with no acute changes ECHO: Stress Test: Cardiac Cath: PCI: CT Surgery: Holter monitor: EPS: PPM: CXR: Chest CT Scan: Radiography Diagnostic Testing: Radiology Impression Chest X-Ray 09/23/20 16:06 IMPRESSION: No airspace consolidation or pleural effusion. Electronically Signed: Conrad Schwartz MD ([place]) at 16:17 EDT , Service support ,
[2020-09-24] MEDS: Mirabegron 50 MG TAB.ER.24H PO (15:56)
[2020-09-24] MEDS: 0.9% Saline Lock 10 ML Syringe IV ×2 (15:59→17:10)
[2020-09-24 16:26] LABS: Bedside Glucose 177 mg/dL (70-110)
[2020-09-24] MEDS: Atorvastatin Calcium 40 MG Tablet PO (21:22)
[2020-09-24] MEDS: Carvedilol 12.5 MG Tablet PO (21:24)
[2020-09-24 21:35] LABS: Bedside Glucose 167 mg/dL (70-110)
[2020-09-25] VITALS (12 sets, daily range): BP systolic 96–136; BP diastolic 50–80; PULSE 56–70; RESP 16–18; TEMP 36.4–37; O2SAT 94–100
[2020-09-25] MEDS: Lisinopril 5 MG Tablet PO (06:39)
[2020-09-25] MEDS: Clopidogrel Bisulfate 75 MG Tablet PO (06:39)
[2020-09-25] MEDS: Aspirin E.C. 81 MG Tablet PO (06:39)
[2020-09-25] MEDS: Carvedilol 12.5 MG Tablet PO (06:39)
[2020-09-25] MEDS: Isosorbide Mononitrate 30 MG Tablet PO (06:40)
[2020-09-25] MEDS: Morphine 2 MG/ML Syringe IV (06:43)
[2020-09-25] MEDS: Ondansetron 4 MG/2 ML Vial IV (06:49)
[2020-09-25 07:06] LABS: Anion Gap 6 (5-15); BUN 17 mg/dL (7-18); BUN/Creat Ratio 24.7 RATIO (10-20); Calcium,Total 9.1 mg/dL (8.5-10.1); Chloride 108 mmol/L (98-107); Creatinine, Serum 0.69 mg/dL (0.55-1.02); EST Glomerular Filtration Rate 91 mL/min (>60); Est Glom Filt Rate - Afr Amer 110 mL/min (>60); Estimated Creatinine Clearance 73.14 ml/min; Glucose 170 mg/dL (74-106); Potassium 4.2 mmol/L (3.5-5.1); Sodium Level 137 mmol/L (136-145)
--- NOTE | 2020-09-25 08:44 | PN.CARD_ITS ---
Subjective Subjective Patient seen and evaluated. Objective Data Vital Signs: Vital Signs Temp Pulse Resp BP Pulse Ox 98.4 F 66 16 136/57 H 100 09/25/20 04:00 09/25/20 04:00 09/25/20 04:00 09/25/20 04:00 09/25/20 04:00 Oxygen Delivery Method Room Air Weight: 172 lb 2.896 oz Body Mass Index (BMI) 27.6 Intake & Output: Intake and Output for Last 24 Hours 09/23/20 09/24/20 09/25/20 23:59 23:59 23:59 Intake Total Balance Lab / Micro Data Result Diagrams: 09/24/20 05:37 09/25/20 06:20 Labs: Laboratory Results - last 24 hr 09/24/20 09/24/20 09/24/20 11:42 16:03 21:28 Sodium Potassium Chloride Carbon Dioxide Anion Gap BUN Creatinine Estim Creat Clear Calc Est GFR (MDRD) Af Amer Est GFR (MDRD) Non-Af BUN/Creatinine Ratio Glucose Calcium POC Glucose 158 H 177 H 167 H 09/25/20 06:20 Sodium 137 Potassium 4.2 Chloride 108 H Carbon Dioxide 23.0 Anion Gap 6 BUN 17 Creatinine 0.69 Estim Creat Clear Calc 73.14 Est GFR (MDRD) Af Amer 110 Est GFR (MDRD) Non-Af 91 BUN/Creatinine Ratio 24.7 H Glucose 170 H Calcium 9.1 POC Glucose Cardiology Labs/Tests 09/25/20 06:20: Sodium 137, Potassium 4.2, Chloride 108 H, Carbon Dioxide 23.0, Anion Gap 6, BUN 17, Creatinine 0.69, Est GFR (MDRD) Af Amer 110, Est GFR (MDRD) Non-Af 91, BUN/Creatinine Ratio 24.7 H, Glucose 170 H, Calcium 9.1 Rhythm: EKG: ECHO: Stress Test: Cardiac Cath: PCI: CT Surgery: Holter monitor: EPS: PPM: CXR: Chest CT Scan: Physical Exam Const oriented x3 and healthy appearing Orientation / Consciousness: awake HEENT normocephalic Eyes PERRL and conjunctivae normal Neck supple, no JVD and no carotid bruits Chest inspection of chest normal Resp normal respiratory effort and clear to auscultation bilaterally Cardio Palpation: normal PMI Rate: regular rate Rhythm: regular rhythm Heart Sounds: S1 normal and S2 normal Peripheral Pulses: pulses 2+ throughout GI normal to inspection, nondistended, normoactive bowel sounds Extremity normal to inspection and no clubbing, cyanosis or edema Psych mental status grossly normal Assessment & Plan Assessment/Plan (1) Chest pain: QUALIFIERS: Chest pain type: unspecified Qualified Code(s): R07.9 - Chest pain, unspecified PLAN: She does have evidence of chest discomfort which is somewhat atypical. However she continues to have these episodes and has presented to the office numerous times. * Cardiac catheterization today demonstrated patency of the left anterior descending artery stent and no obstructive coronary disease. Left ventricular systolic dysfunction is noted. * She will be discharged for medical therapy (2) History of coronary artery stent placement: PLAN: She is status post previous angioplasty and stenting of the LAD vessel in 2016. The cardiac catheterization demonstrated patency of this vessel. No significant angiographically lesions are noted. (3) Ischemic cardiomyopathy: PLAN: She did have evidence of Takotsubo cardiomyopathy, and this was confirmed with today's catheterization. It appears that there is a previous anterior apical infarct noted. The estimated ejection fraction is about 40%. (4) Essential (primary) hypertension: PLAN: Her blood pressure appears to be in under good control particular time. I would not make any changes to her medications. She will remain on the carvedilol and the lisinopril. She can be discharged for outpatient follow-up. Thank you for allowing me to participate in the care of your patient. Please don't hesitate to call if any issues arise.
--- NOTE | 2020-09-25 08:52 | CL.D_ITS ---
Patient Name: ELO HERNANDEZ Study Date: 09/25/2020 Performing: Elias Butler MD Ht: 64.96 inches 165 cm : 1955 Wt: 171.96 lbs 78 kg Age: 64 Gender: female BSA: 1.85 PROCEDURE(S) PERFORMED OF00-UDI/COR/LV CLINICAL PROFILE AND INDICATIONS Indications: Suspected CAD Heart Failure: None Stress/Imaging Date: 08/15/20 CAD Presentations: Stable angina. CONCLUSIONS Cardiomyopathy: Dilated ischemic Previously placed stent in the LAD is patent. There is significant hypokinesis noted of the anterior wall apex consistent with a prior infarct. RECOMMENDATIONS Medical therapy DESCRIPTION OF PROCEDURE The patient arrived to the procedure lab. The risks and benefits of the procedure as well as a full d escription of our services here and current unavailability of surgical backup were fully explained to the patient and/or their significant other prior to the catheterization. The Timeout was completed, verifying the correct patient and procedure. The patient's procedural site was prepped and draped in the usual fashion. Local anesthetic was given subcutaneously to right groin region with Lidocaine 2% by Dr. Zapata. Using a modified Seldinger technique, arterial access was obtained via the right fe moral artery, with Micropuncture set by Jodi Morton Left Coronary Artery selective angiography was performed in multiple views using a 5 Fr. JL4 catheter. Right Coronary Artery selective angiography was then performed in multiple views using a 5 Fr. 3DRC (Zach) catheter. Left Ventriculography wa s performed in [place] projection using a 5 Fr. Pigtail catheter. LV to AO pullback pressures were then recorded.The arterial sheath was pulled and manual compression applied until hemostasis is achieved. CORONARY ANGIOGRAPHY DOMINANCE: Co- Dominant LEFT HEART ASSESSMENT Left Ventricular Ejection Fraction: by LV Gram 37 % Anterior Hypokinesis - Severe. Apical Akinesis Depressed Left Ventricular systolic function LEFT MAIN: Mild luminal irregularities LEFT ANTERIOR DESCENDING ARTERY: MID LAD: Previously placed stent is patent CIRCUMFLEX ARTERY: Mild luminal irregularities RIGHT CORONARY ARTERY: Mild luminal irregularities COMPLICATIONS No Complications PROCEDURE MEDICATIONS Versed 1 mg IV Fentanyl 50 mcg IV Oxygen: 2 L/min via nasal cannula Benadryl 25 mg IV @ 09/25/2020 08:17:10 Solu-cortef 100 mg IV 09/25/2020 08:16:57 SUMMARY OF HEMODYNAMIC DATA Time AIR REST ECG 08:12:56 AO 141/55 (85) SA 08:31:48 LV 142/1, 17 08:38:19 LV 149/5, 21 08:38:27 LV 136/3, 19 08:39:16 LVp 140/2, 20 08:39:21 AOp 146/61 (94) 08:39:26 AO 160/60 (95) 08:40:52 Signed By Elias Butler MD On 09/25/2020 8:52:09 AM Elias Butler MD
--- NOTE | 2020-09-25 09:22 | CASEMGMT ---
According to the [facility] website, the following are in-network tertiary facilities: [facility], [facility], [facility], [facility], and . Darrin AJ CM
[2020-09-25] MEDS: Pantoprazole Sodium 40 MG Tablet PO (09:45)
[2020-09-25] MEDS: Donepezil HCl 10 MG Tablet 20 MG PO (09:45)
[2020-09-25] MEDS: DULoxetine Hcl 30 MG Capsule PO (09:45)
[2020-09-25] MEDS: Potassium Chloride Oral Tablet 20 MEQ PO (09:45)
[2020-09-25] MEDS: Mirabegron 50 MG TAB.ER.24H PO (09:45)
[2020-09-25] MEDS: hydrOXYzine PAM 25 MG Capsule 50 MG PO ×2 (09:46→13:25)
--- NOTE | 2020-09-25 11:09 | CASEMGMT ---
This RN CM to room with SADLER form, explanation done-pt voices understanding, and signs SADLER form. Pt states has a copy of the MCR IP vs OBS booklet. Original SADLER to chart and copy to pt. Pt states no further concerns/needs. S[place]en JEAN MARIE CM
[2020-09-25] MEDS: Pramipexole Di-HCl 0.5 MG Tablet PO (11:27)
[2020-09-25] MEDS: Ferrous Sulfate 325 MG Tablet PO (11:27)
[2020-09-25] MEDS: Insulin Lispro 100 UNIT/ML INSULN.PEN SC (11:27)
[2020-09-25] MEDS: Sucralfate 1 GM Tablet PO ×2 (11:27→16:02)
[2020-09-25 11:38] LABS: Bedside Glucose 168 mg/dL (70-110)
[2020-09-25 11:39] LABS: Bedside Glucose 183 mg/dL (70-110)
[2020-09-25 11:55] LABS: Bedside Glucose 318 mg/dL (70-110)
--- NOTE | 2020-09-25 13:24 | DS.PCM_ITS ---
Providers Date of Admission: 09/23/20 Primary Care Physician: Dr. Tom Sherman MD Consultations 09/23/20 19:59 Consult: Cardiology Routine Consulting Provider: Kimani Tariq Reason for Consult: Chest pain, recent negative stress EMERGENT Consult: No MD Notified: Yes Date Notified:: 09/23/20 Time Notified: 18:52 Method of Notification: called per ED Reason For Visit: chest pain Diagnosis Discharge Diagnosis (1) Chest pain: Status: Acute Code(s): R07.9 - Chest pain, unspecified Qualifiers: Chest pain type: unspecified Qualified Code(s): R07.9 - Chest pain, unspecified (2) History of coronary artery stent placement: Status: Chronic Code(s): Z95.5 - Presence of coronary angioplasty implant and graft (3) Ischemic cardiomyopathy: Status: Chronic Code(s): I25.5 - Ischemic cardiomyopathy (4) Essential (primary) hypertension: Status: Chronic Code(s): I10 - Essential (primary) hypertension Medications at Discharge Home Medications aspirin 81 mg PO DAILY 10/21/16 albuterol sulfate 2 puff INHALATION Q6H PRN PRN 10/23/17 ropinirole 0.5 mg tablet 1 mg PO QHS tablet 08/21/19 conj estrog-medroxyprogest raquel 1 tablet PO DAILY 09/20/19 teriflunomide 14 mg PO DAILY 09/20/19 modafinil 200 mg PO DAILY 12/12/19 pioglitazone 30 mg PO DAILY 12/25/19 ropinirole 1 mg PO LUNCH 12/25/19 dicyclomine 20 mg tablet 20 mg PO BID PRN #180 tablet 03/15/20 clopidogrel 75 mg tablet 75 mg PO DAILY #90 tablet 05/14/20 acetaminophen 1,000 mg PO TID PRN #1 tablet 07/29/20 isosorbide mononitrate 30 mg tablet,extended release 24 hr 30 mg PO DAILY #30 tablet 08/06/20 blood sugar diagnostic #100 each 08/10/20 blood-glucose meter #1 each 08/10/20 ondansetron HCl 8 mg tablet 8 mg PO Q8H PRN PRN #20 tab 08/10/20 ascorbic acid (vitamin C) 500 mg PO DAILY #30 tab.chew 08/17/20 ferrous sulfate 325 mg PO DAILY #30 tablet 08/17/20 glimepiride 4 mg PO BID #0 08/17/20 atorvastatin 40 mg tablet 40 mg PO DAILY #30 tab 09/18/20 carvedilol 6.25 mg tablet 12.5 mg PO BID #60 tab 09/18/20 cholecalciferol (vitamin D3) 25 mcg (1,000 unit) capsule 50 mcg PO DAILY cap 09/18/20 hydroxyzine HCl 50 mg tablet 50 mg PO TID 09/18/20 lisinopril 2.5 mg tablet 5 mg PO DAILY #30 tablet 09/18/20 mirabegron 25 mg tablet,extended release 24 hr 100 mg PO Q24H tab 09/18/20 nitroglycerin 0.4 mg sublingual tablet 0.4 mg SL ONCE #25 tablet 09/18/20 ondansetron 4 mg disintegrating tablet 4 mg PO Q8H PRN PRN #30 tab 09/18/20 pantoprazole 40 mg tablet,delayed release 40 mg PO DAILY #30 tablet 09/18/20 potassium chloride 20 mEq tablet,extended release 20 meq PO DAILY 09/18/20 sucralfate 1 gram tablet 1 g PO 4X/DAY #120 tablet 09/18/20 trazodone 50 mg tablet 50 mg PO QHS PRN #30 tablet 09/18/20 acidophilus-pectin, citrus 1 cap PO DAILY 09/23/20 donepezil [Aricept] 20 mg PO DAILY 09/23/20 duloxetine [Cymbalta] 30 mg PO BID 09/23/20 Hospital Course Operations None Procedures Cardiac catheterization Summary of Care Provided Minutes Spent on Discharge: 45 Hospital Course: Patient is a 64 y/o female with a PMH as outlined who was adm itted via the ED on 09/23/2020 with a complaint of chest pain. Patient had similar chest pain in July 2020 and had a negative stress test in July 2020. Chest pain this time was retrosternal, radiated to the left upper extremity, with no aggravating or relieving factors. Troponins x 3 were negative . CXR showed no acute cardiopulmonary process, and EKG showed no acute ST changes. She was admitted and managed for chest pain, to r/o ACS. cardiology was consulted. He had cardiac cath on 09/25/2020 which showed a dilated ischemic cardiomyopathy, with the previously placed stent in the LAD being patent, with significant hypokinesis of the anterior wall apex consistent with a prior infarct. EF was 3 7%. Patient remained stable after cardiac cath, and was discharged home on 09/25/2020. 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 Patient was seen and examined prior to discharge. She had no complaints. Review of systems is otherwise negative. Labs and vitals reviewed, home meds reviewed and reconciled. Physical Exam Const alert, oriented x3 and no apparent distress Exam Limitations: no limitations HEENT head/scalp atraumatic Eyes PERRL, EOMs intact bilaterally and conjunctivae normal Neck no lymphadenopathy, supple and no JVD Resp normal respiratory effort, no retractions and no use of accessory muscles Cardio regular rate, regular rhythm, S1 normal heart sound, S2 normal heart sound and no murmurs GI normal to inspection, nondistended, normoactive bowel sounds, soft to palpation, non-tender and non-distended Extremity normal to inspection, full ROM and no clubbing, cyanosis or edema Skin no rashes or lesions noted Neuro CN's II-XII intact bilaterally and moves all extremities Sensorium / Orientation: awake Psych affect normal ABG / Lab / Microbiology Data Result Diagrams: 09/24/20 05:37 09/25/20 06:20 Laboratory: Laboratory Results - last 24 hr 09/24/20 09/24/20 09/25/20 16:03 21:28 06:20 Sodium 137 Potassium 4.2 Chloride 108 H Carbon Dioxide 23.0 Anion Gap 6 BUN 17 Creatinine 0.69 Estim Creat Clear Calc 73.14 Est GFR (MDRD) Af Amer 110 Est GFR (MDRD) Non-Af 91 BUN/Creatinine Ratio 24.7 H Glucose 170 H Calcium 9.1 POC Glucose 177 H 167 H 09/25/20 09/25/20 09/25/20 06:50 09:52 11:25 Sodium Potassium Chloride Carbon Dioxide Anion Gap BUN Creatinine Estim Creat Clear Calc Est GFR (MDRD) Af Amer Est GFR (MDRD) Non-Af BUN/Creatinine Ratio Glucose Calcium POC Glucose 168 H 183 H 318 H D/C Instructions Discharge Diet: 2000 mg Sodium Diet Discharge Activity: Return to Normal Activity Weight Bearing Status: Weight bearing as tolerated Call your doctor if you observe: Fever of 101 or Higher, Shortness of breath, Swelling in the ankles, Chest pain and Increased palpitations (irregular heartbeat) Meaningful Use Info Meaningful Use Diagnoses (Choose all that apply): None applicable Discharge Plan Admission Admit Date/Time: 09/23/20 18:53 Attending Provider: Agata Mai Primary Care Provider: Tom Sherman Consulting Providers: Kimani Tariq Instructions Patient Instructions: ED Chest Pain, Noncardiac, ED Chest Pain, Uncertain Cause Discharge Orders/Prescriptions Prescriptions: Continued ropinirole [Requip] 0.5 mg tablet 1 mg PO QHS RF: 0 dicyclomine 20 mg tablet 20 mg PO BID PRN (Reason: abdominal discomfort) Qty: 180 RF: 2 hydroxyzine HCl 50 mg tablet 50 mg PO TID RF: 0 potassium chloride 20 mEq tablet extended release 20 meq PO DAILY RF: 0 Myrbetriq 25 mg tablet extended release 24 hr 100 mg PO Q24H RF: 0 cholecalciferol (vitamin D3) 25 mcg (1,000 unit) capsule 50 mcg PO DAILY RF: 0 trazodone 50 mg tablet 50 mg PO QHS PRN (Reason: insomnia) Qty: 30 RF: 1 nitroglycerin 0.4 mg tablet, sublingual 0.4 mg SL ONCE Qty: 25 RF: 3 aspirin 81 MG tablet 81 mg PO DAILY RF: 0 albuterol sulfate 1 INHALER inhaler 2 puff INHALATION Q6H PRN PRN (Reason: Sob &/Or Wheezing) RF: 0 conj estrog-medroxyprogest raquel 1 TAB tablet 1 tablet PO DAILY RF: 0 teriflunomide 14 mg tablet 14 mg PO DAILY RF: 0 modafinil 200 MG tablet 200 mg PO DAILY RF: 0 ropinirole 1 MG tablet 1 mg PO LUNCH RF: 0 pioglitazone 30 MG tablet 30 mg PO DAILY RF: 0 acetaminophen 500 MG tablet 1,000 mg PO TID PRN (Reason: pain -02/03) Qty: 1 RF: 0 ferrous sulfate 325 MG tablet 325 mg PO DAILY Qty: 30 RF: 2 ascorbic acid (vitamin C) 500 MG tablet,chewable 500 mg PO DAILY Qty: 30 RF: 0 glimepiride 4 MG tablet 4 mg PO BID Qty: 0 RF: 0 donepezil [Aricept] 10 mg tablet 20 mg PO DAILY RF: 0 duloxetine [Cymbalta] 30 mg capsule,delayed release(DR/EC) 30 mg PO BID RF: 0 acidophilus-pectin, citrus 100 million cell-10 mg Capsule 1 cap PO DAILY RF: 0 clopidogrel 75 mg tablet 75 mg PO DAILY Qty: 90 RF: 3 isosorbide mononitrate 30 mg tablet extended release 24 hr 30 mg PO DAILY Qty: 30 RF: 11 (DME) blood-glucose meter [Accu-Chek Ada Plus Meter] Misc See Rx Instructions .ROUTE .MEDSUPPLY Qty: 1 RF: 0 ondansetron HCl 8 mg tablet 8 mg PO Q8H PRN PRN (Reason: Nausea/Vomiting) Qty: 20 RF: 0 (DME) Accu-Chek Ada Plus test strp Strip See Rx Instructions .ROUTE .MEDSUPPLY Qty: 100 RF: 3 lisinopril 2.5 mg tablet 5 mg PO DAILY Qty: 30 RF: 11 pantoprazole 40 mg tablet,delayed release (DR/EC) 40 mg PO DAILY Qty: 30 RF: 11 atorvastatin 40 mg tablet 40 mg PO DAILY Qty: 30 RF: 11 carvedilol 6.25 mg tablet 12.5 mg PO BID Qty: 60 RF: 0 sucralfate 1 gram tablet 1 g PO 4X/DAY Qty: 120 RF: 1 ondansetron 4 mg tablet,disintegrating 4 mg PO Q8H PRN PRN (Reason: Nausea) Qty: 30 RF: 3 Referrals / Follow Up: Elias Butler MD [STAFF PHYSICIAN] - Within 1 Month Tom Sherman MD [Primary Care Provider] - Within 2 Weeks Disposition Discharge Orders: Discharge Patient (Routine); Ordered 09/25/20 Ordered By: Dr. Elias Butler Visit Charges OBSV E&M: 74285 Observation care discharge
--- NOTE | 2020-09-25 15:29 | PHA.DC.MR ---
Pharmacy Service has performed discharge medication reconciliation for this patient. The patient's discharge medication list was reviewed for discrepancies and discrepancies were resolved. Home Medications aspirin 81 mg PO DAILY 10/21/16 albuterol sulfate 2 puff INHALATION Q6H PRN PRN 10/23/17 ropinirole 0.5 mg tablet 1 mg PO QHS tablet 08/21/19 conj estrog-medroxyprogest raquel 1 tablet PO DAILY 09/20/19 teriflunomide 14 mg PO DAILY 09/20/19 modafinil 200 mg PO DAILY 12/12/19 pioglitazone 30 mg PO DAILY 12/25/19 ropinirole 1 mg PO LUNCH 12/25/19 dicyclomine 20 mg tablet 20 mg PO BID PRN #180 tablet 03/15/20 clopidogrel 75 mg tablet 75 mg PO DAILY #90 tablet 05/14/20 acetaminophen 1,000 mg PO TID PRN #1 tablet 07/29/20 isosorbide mononitrate 30 mg tablet,extended release 24 hr 30 mg PO DAILY #30 tablet 08/06/20 blood sugar diagnostic #100 each 08/10/20 blood-glucose meter #1 each 08/10/20 ondansetron HCl 8 mg tablet 8 mg PO Q8H PRN PRN #20 tab 08/10/20 ascorbic acid (vitamin C) 500 mg PO DAILY #30 tab.chew 08/17/20 ferrous sulfate 325 mg PO DAILY #30 tablet 08/17/20 glimepiride 4 mg PO BID #0 08/17/20 atorvastatin 40 mg tablet 40 mg PO DAILY #30 tab 09/18/20 carvedilol 6.25 mg tablet 12.5 mg PO BID #60 tab 09/18/20 cholecalciferol (vitamin D3) 25 mcg (1,000 unit) capsule 50 mcg PO DAILY cap 09/18/20 hydroxyzine HCl 50 mg tablet 50 mg PO TID 09/18/20 lisinopril 2.5 mg tablet 5 mg PO DAILY #30 tablet 09/18/20 mirabegron 25 mg tablet,extended release 24 hr 100 mg PO Q24H tab 09/18/20 nitroglycerin 0.4 mg sublingual tablet 0.4 mg SL ONCE #25 tablet 09/18/20 ondansetron 4 mg disintegrating tablet 4 mg PO Q8H PRN PRN #30 tab 09/18/20 pantoprazole 40 mg tablet,delayed release 40 mg PO DAILY #30 tablet 09/18/20 potassium chloride 20 mEq tablet,extended release 20 meq PO DAILY 09/18/20 sucralfate 1 gram tablet 1 g PO 4X/DAY #120 tablet 09/18/20 trazodone 50 mg tablet 50 mg PO QHS PRN #30 tablet 09/18/20 acidophilus-pectin, citrus 1 cap PO DAILY 09/23/20 donepezil [Aricept] 20 mg PO DAILY 09/23/20 duloxetine [Cymbalta] 30 mg PO BID 09/23/20
[2020-09-25] MEDS: Acetaminophen 325 MG Tablet 650 MG PO (16:02)
== END 2020-09-25 15:26 ==
LOC: ED 18:45 → PCU 19:12
PROVIDERS: Admitting Provider Family Medicine; Emergency Provider Student in an Organized Health Care Education/Training Program; PCP Internal Medicine; Visit Provider Student in an Organized Health Care Education/Training Program
DX: R07.89 Other chest pain (principal); I48.0 Paroxysmal atrial fibrillation; I25.2 Old myocardial infarction; I25.10 Atherosclerotic heart disease of native coronary artery without angina pectoris; J44.9 Chronic obstructive pulmonary disease, unspecified; I11.0 Hypertensive heart disease with heart failure; I50.22 Chronic systolic (congestive) heart failure; F41.9 Anxiety disorder, unspecified; K58.0 Irritable bowel syndrome with diarrhea; M48.02 Spinal stenosis, cervical region; D50.9 Iron deficiency anemia, unspecified; E78.5 Hyperlipidemia, unspecified; G89.29 Other chronic pain; E11.9 Type 2 diabetes mellitus without complications; G47.33 Obstructive sleep apnea (adult) (pediatric); G35 Multiple sclerosis; I25.5 Ischemic cardiomyopathy; F17.210 Nicotine dependence, cigarettes, uncomplicated; F32.9 Major depressive disorder, single episode, unspecified; G25.81 Restless legs syndrome; K21.9 Gastro-esophageal reflux disease without esophagitis; G31.84 Mild cognitive impairment of uncertain or unknown etiology; Z79.899 Other long term (current) drug therapy; Z79.82 Long term (current) use of aspirin; Z79.02 Long term (current) use of 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/antiplatelets; Z79.84 Long term (current) use of oral hypoglycemic drugs; Z95.5 Presence of coronary angioplasty implant and graft
CPT/HCPCS: 36415; 71045; 80048; 80053; 82962; 83735; 84484; 85025; 85379; 93005; 93458; 96361; 96372; 96374; 96375; 96376; 97161; 97166; 99152; 99153; 99218; 99251; 99285; J7030; A4216; C1769; C1894; G0378; G0463; J2405; Q9967

== ENCOUNTER 2020-09-30 12:49 | Emergency (ER) | payer MEDICARE, MEDICAID, SELFPAY ==
[2016-07-13 11:45] VITALS: BMI 31.4
[2020-09-23 19:45] VITALS: BMI 27.6
[2020-09-30 12:49] VITALS: BP 123/62; PULSE 63; RESP 16; TEMP 36.5; O2SAT 98; BMI 28.9
--- NOTE | 2020-09-30 12:59 | EKG12_ITS ---
Test Reason : CP Blood Pressure : / mmHG Vent. Rate : 057 BPM Atrial Rate : 057 BPM P-R Int : 152 ms QRS Dur : 098 ms QT Int : 456 ms P-R-T Axes : 035 -43 109 degrees QTc Int : 443 ms Sinus bradycardia Left axis deviation Inferior infarct , age undetermined Anterolateral infarct , age undetermined Abnormal ECG Confirmed by CATHERINE WITT, GRIS ([id number]), editor sound YUNG MUNGUIA ([id number]) on 10/02/2020 9:55:22 AM Referred By: JUWAN/MYRNA Confirmed By:GRIS ALEXANDER MD
--- NOTE | 2020-09-30 12:59 | RAD_ITS ---
STUDY: X-RAY CHEST REASON FOR EXAM: Female, 64 years old. chest pain TECHNIQUE: Single AP portable view of the chest. COMPARISON: 09/23/2020 FINDINGS: The lungs are clear and expanded. There is no demonstrated pleural abnormality. Normal size heart. Normal mediastinum and sara. Normal visualized pulmonary arteries. Normal visualized aortic arch and descending thoracic aorta. Normal visualized thoracic spine. Normal visualized ribs, clavicles, and shoulders. There is no demonstrated abnormality of the visualized soft tissue structures of the upper abdomen. RAD/Chest 1 View (Portable) IMPRESSION: Normal x-ray examination of the chest. Electronically Signed: Armando Taylor MD at 13:30 EDT Tel , Service support ,
--- NOTE | 2020-09-30 12:59 | ED.VIS.CHEST ---
HPI History of Present Illness Chief Complaint: Chest Pain Informant: patient and EMS Onset/Context/Timing Onset: Yesterday Activity at onset: rest Timing: Continuous Quality: Positive for Heaviness Location: Left Parasternal Current Severity: Moderate Maximum Severity: Moderate Worsened By: Nothing; Not Worsened By Breathing Relieved By: Nothing; Not Relieved By NTG Associated Symptoms: Positive for Nausea; Negative for Vomiting, Diaphoresis, Dyspnea, Cough, Lightheadedness and Palpitations Narrative Narrative: Patient presented with chest discomfort that started last night, kept her up most of the night, persisted all morning. She has a history of an IL and Takotsubo cardiomyopathy, she actually had a heart catheterization 5 days ago because of recurrent chest discomfort; she states this discomfort is the same as those recurring episodes. She was given nitroglycerin by EMS, it did nothing for her discomfort today. She has not tried any other treatments. No recent illness, has not had Covid, no history of cough, fevers, chills, loss of taste or smell recently. 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 Cervical spinal stenosis Chronic systolic (congestive) heart failure COPD (chronic obstructive pulmonary disease) Diabetes mellitus type 2 in nonobese Essential (primary) hypertension History of ST elevation myocardial infarction (STEMI) IBS (irritable bowel syndrome) Irritable bowel syndrome with diarrhea Ischemic cardiomyopathy Left ventricular hypertrophy Major depression Multiple sclerosis Nicotine abuse BRYAN (obstructive sleep apnea) Paroxysmal atrial fibrillation RLS (restless legs syndrome) Suicidal ideation Tachycardia Takotsubo syndrome Vitamin B12 deficiency Home Medications aspirin 81 mg PO DAILY 10/21/16 [History Last Taken 08/14/20 09:00] albuterol sulfate 2 puff INHALATION Q6H PRN PRN 10/23/17 [History Last Taken 06/08/19] ropinirole 0.5 mg tablet 1 mg PO QHS tablet 08/21/19 [History Last Taken 08/13/20] conj estrog-medroxyprogest raquel 1 tablet PO DAILY 09/20/19 [History Last Taken 08/14/20 09:00] teriflunomide 14 mg PO DAILY 09/20/19 [History Last Taken 08/14/20 09:00] modafinil 200 mg PO DAILY 12/12/19 [History Last Taken 08/14/20 09:00] pioglitazone 30 mg PO DAILY 12/25/19 [History Last Taken 12/25/19 21:00] ropinirole 1 mg PO LUNCH 12/25/19 [History Last Taken 08/14/20 13:00] dicyclomine 20 mg tablet 20 mg PO BID PRN #180 tablet 03/15/20 [Rx Last Taken 08/14/20 13:00] clopidogrel 75 mg tablet 75 mg PO DAILY #90 tablet 05/14/20 [Rx Last Taken 08/14/20 09:00] acetaminophen 1,000 mg PO TID PRN #1 tablet 07/29/20 [Rx Last Taken Unknown] isosorbide mononitrate 30 mg tablet,extended release 24 hr 30 mg PO DAILY #30 tablet 08/06/20 [Rx Last Taken 08/14/20 09:00] blood sugar diagnostic #100 each 08/10/20 [Rx Last Taken Unknown] blood-glucose meter #1 each 08/10/20 [Rx Last Taken Unknown] ondansetron HCl 8 mg tablet 8 mg PO Q8H PRN PRN #20 tab 08/10/20 [Rx Last Taken Unknown] ascorbic acid (vitamin C) 500 mg PO DAILY #30 tab.chew 08/17/20 [Rx Last Taken Unknown] ferrous sulfate 325 mg PO DAILY #30 tablet 08/17/20 [Rx Last Taken Unknown] glimepiride 4 mg PO BID #0 08/17/20 [Rx Last Taken 08/14/20 09:00] atorvastatin 40 mg tablet 40 mg PO DAILY #30 tab 09/18/20 [Rx Last Taken Unknown] carvedilol 6.25 mg tablet 12.5 mg PO BID #60 tab 09/18/20 [Rx Last Taken Unknown] cholecalciferol (vitamin D3) 25 mcg (1,000 unit) capsule 50 mcg PO DAILY cap 09/18/20 [History Last Taken Unknown] hydroxyzine HCl 50 mg tablet 50 mg PO TID 09/18/20 [History Last Taken Unknown] lisinopril 2.5 mg tablet 5 mg PO DAILY #30 tablet 09/18/20 [Rx Last Taken Unknown] mirabegron 25 mg tablet,extended release 24 hr 100 mg PO Q24H tab 09/18/20 [History Last Taken Unknown] nitroglycerin 0.4 mg sublingual tablet 0.4 mg SL ONCE #25 tablet 09/18/20 [Rx Last Taken Unknown] ondansetron 4 mg disintegrating tablet 4 mg PO Q8H PRN PRN #30 tab 09/18/20 [Rx Last Taken Unknown] pantoprazole 40 mg tablet,delayed release 40 mg PO DAILY #30 tablet 09/18/20 [Rx Last Taken Unknown] potassium chloride 20 mEq tablet,extended release 20 meq PO DAILY 09/18/20 [History Last Taken Unknown] sucralfate 1 gram tablet 1 g PO 4X/DAY #120 tablet 09/18/20 [Rx Last Taken Unknown] trazodone 50 mg tablet 50 mg PO QHS PRN #30 tablet 09/18/20 [Rx Last Taken Unknown] acidophilus-pectin, citrus 1 cap PO DAILY 09/23/20 [History Last Taken Unknown] donepezil [Aricept] 20 mg PO DAILY 09/23/20 [History Last Taken Unknown] duloxetine [Cymbalta] 30 mg PO BID 09/23/20 [History Last Taken Unknown] Allergy/AdvReac Type Severity Reaction Status Date / Time indomethacin [From Indocin] Allergy Hives Verified 09/23/20 15:04 indomethacin sodium Allergy Hives Verified 09/23/20 15:04 [From Indocin] iodine Allergy Hives Verified 09/23/20 15:04 propoxyphene napsylate Allergy Out of Verified 09/23/20 15:04 [From Darvocet-N] control aripiprazole [From Abilify] AdvReac Other Verified 09/23/20 15:04 aspirin AdvReac Upset Verified 09/23/20 15:04 Stomach clindamycin AdvReac Nausea Verified 09/23/20 15:04 metformin AdvReac Other Verified 09/23/20 15:04 sumatriptan [From Imitrex] AdvReac Vomiting Verified 09/23/20 15:04 Family History Father Cancer Lung cancer Mother Cancer Pancreatic cancer Surgical History History of amputation of left great toe History of back surgery History of cervical discectomy History of coronary artery stent placement (04/08/16) History of left heart catheterization (09/25/20) History of left knee surgery History of loop recorder (06/2014) History of tonsillectomy and adenoidectomy Social History household members: none Smoking Status: Current every day smoker tobacco type: cigarettes alcohol intake: never substance use type: does not use caffeine: Yes Type: coffee Number of servings: 1 what type of physical activity do you participate in: none and other details: Physical Therapy ROS ROS ED Constitutional Constitutional ED: Denies chills or fever(s) Eyes Eyes: Denies change in vision or diplopia ENT ENT ED: Denies rhinorrhea or sore throat Cardiovascular Cardiovascular: Reports as per HPI, chest pain and nausea; Denies palpitations Respiratory/Chest Respiratory/Chest: Reports other Details: Chronic nonproductive cough unchanged ; Denies dyspnea Gastrointestinal Gastrointestinal: Denies abdominal pain, diarrhea or vomiting Genitourinary Genitourinary ED: Denies dysuria or hematuria Musculoskeletal Musculoskeletal: Denies back pain or neck pain Integumentary Denies abscess or rash Neurologic Neurologic: Denies headache(s), paresthesias or weakness Psychiatric Psychiatric: Denies anxiety or suicidal thoughts EXAM Physical Exam Const Vital Signs: 09/30/20 12:49 09/30/20 13:23 Temperature 97.7 F L Temperature Source Oral Pulse Rate 63 Respiratory Rate 16 Respiratory Effort Normal Non-Labored Respiratory Pattern Normal Blood Pressure 123/62 H Blood Pressure Mean 82 Pulse Ox 98 Oxygen Delivery Method Room Air Positive well nourished and well developed General Appearance ED: well developed and NAD HEENT Reports moist mucous membranes normocephalic and atraumatic Eyes PERRL and EOMs intact bilaterally Neck full ROM and supple Resp normal respiratory effort and clear to auscultation bilaterally Cardio regular rate and regular rhythm Cardio Narrative: Symmetric 2+/4 radial pulses bilaterally GI non-tender and non-distended Auscultation: normoactive bowel sounds Palpation: soft Back/Spine no CVA tenderness General Back: other FROM Extremity normal to inspection and no calf tenderness General Extremety ED: Negative for edema, pulses abnormal or tenderness General Extremity: Negative for edema or pulses abnormal Neuro oriented x3, CN's II-XII intact bilaterally and no sensory deficits noted Sensorium / Orientation: awake and alert Motor Exam: strength 5/5 throughout Skin no rashes or lesions noted and no wounds Heart Score History: Moderately Suspicious ECG: Normal Age: >/= 65 years Risk Factors: >/= 3 Risk Factors or History of CAD Troponin: </= Normal Limit Score: 5 MDM MDM MDM Narrative Medical decision making narrative: Patient's history is somewhat atypical, similar to her prior episodes. Her cardiac work-up is negative, she has had continuous discomfort for over 12 hours and I do not think she needs further work-up given that she had a negative heart catheterization 5 days ago. She was given a GI cocktail given all of that, and the likelihood that this is noncardiac pain, it did not help her discomfort. She will be given a dicyclomine and tramadol prior to discharge home. She is scheduled to follow-up with Martell Licea in cardiology in a week or 2. Lab Data Attestation: I reviewed the patient's lab results. Labs: Laboratory Results - last 24 hr 09/30/20 09/30/20 13:10 13:10 WBC 7.9 RBC 3.78 L Hgb 11.2 L Hct 35.7 L MCV 94.4 MCH 29.6 MCHC 31.4 L RDW Std Deviation 49.6 H RDW Coeff of Ye[place] 14.3 Plt Count 286 MPV 9.5 Immature Gran % (Auto) 0.300 Neut % (Auto) 68.1 Lymph % (Auto) 17.0 L [place] % (Auto) 8.6 Eos % (Auto) 4.9 Baso % (Auto) 1.1 H Absolute Neuts (auto) 5.4 Absolute Lymphs (auto) 1.34 Nucleated RBC % 0 Sodium 133 L Potassium 4.5 Chloride 102 Carbon Dioxide 25.0 Anion Gap 6 BUN 19 H Creatinine 0.96 Estim Creat Clear Calc 52.57 Est GFR (MDRD) Af Amer 75 Est GFR (MDRD) Non-Af 62 BUN/Creatinine Ratio 19.8 Glucose 225 H Calcium 9.2 Troponin I < 0.015 Radiography Chest X-Ray - ED: 1 View, Read by ED Physician and No Acute Disease Diagnostic Testing: Radiology Impression Chest X-Ray 09/30/20 12:59 IMPRESSION: Normal x-ray examination of the chest. Electronically Signed: Armando Taylor MD at 13:30 EDT Tel , Service support , EKG Initial EKG: Attestation: I personally reviewed and interpreted this EKG as follows: Interpretation: Sinus Rhythm, No Acute Injury Pattern and LAFB Comments: Old anterior septal and inferior IL Prior EKG tracings: available for review Prior: Unchanged Discharge Plan Triage Chief Complaint: Chest Pain ED Provider: Yuval Luciano Dx/Rx/DC Orders Clinical Impression: Chest pain Instructions: ED Chest Pain, Uncertain Cause Prescriptions: No Action ropinirole [Requip] 0.5 mg tablet 1 mg PO QHS RF: 0 dicyclomine 20 mg tablet 20 mg PO BID PRN (Reason: abdominal discomfort) Qty: 180 RF: 2 hydroxyzine HCl 50 mg tablet 50 mg PO TID RF: 0 potassium chloride 20 mEq tablet extended release 20 meq PO DAILY RF: 0 Myrbetriq 25 mg tablet extended release 24 hr 100 mg PO Q24H RF: 0 cholecalciferol (vitamin D3) 25 mcg (1,000 unit) capsule 50 mcg PO DAILY RF: 0 trazodone 50 mg tablet 50 mg PO QHS PRN (Reason: insomnia) Qty: 30 RF: 1 nitroglycerin 0.4 mg tablet, sublingual 0.4 mg SL ONCE Qty: 25 RF: 3 aspirin 81 MG tablet 81 mg PO DAILY RF: 0 albuterol sulfate 1 INHALER inhaler 2 puff INHALATION Q6H PRN PRN (Reason: Sob &/Or Wheezing) RF: 0 conj estrog-medroxyprogest raquel 1 TAB tablet 1 tablet PO DAILY RF: 0 teriflunomide 14 mg tablet 14 mg PO DAILY RF: 0 modafinil 200 MG tablet 200 mg PO DAILY RF: 0 ropinirole 1 MG tablet 1 mg PO LUNCH RF: 0 pioglitazone 30 MG tablet 30 mg PO DAILY RF: 0 acetaminophen 500 MG tablet 1,000 mg PO TID PRN (Reason: pain -02/03) Qty: 1 RF: 0 ferrous sulfate 325 MG tablet 325 mg PO DAILY Qty: 30 RF: 2 ascorbic acid (vitamin C) 500 MG tablet,chewable 500 mg PO DAILY Qty: 30 RF: 0 glimepiride 4 MG tablet 4 mg PO BID Qty: 0 RF: 0 donepezil [Aricept] 10 mg tablet 20 mg PO DAILY RF: 0 duloxetine [Cymbalta] 30 mg capsule,delayed release(DR/EC) 30 mg PO BID RF: 0 acidophilus-pectin, citrus 100 million cell-10 mg Capsule 1 cap PO DAILY RF: 0 clopidogrel 75 mg tablet 75 mg PO DAILY Qty: 90 RF: 3 isosorbide mononitrate 30 mg tablet extended release 24 hr 30 mg PO DAILY Qty: 30 RF: 11 (DME) blood-glucose meter [Accu-Chek Ada Plus Meter] Misc See Rx Instructions .ROUTE .MEDSUPPLY Qty: 1 RF: 0 ondansetron HCl 8 mg tablet 8 mg PO Q8H PRN PRN (Reason: Nausea/Vomiting) Qty: 20 RF: 0 (DME) Accu-Chek Ada Plus test strp Strip See Rx Instructions .ROUTE .MEDSUPPLY Qty: 100 RF: 3 lisinopril 2.5 mg tablet 5 mg PO DAILY Qty: 30 RF: 11 pantoprazole 40 mg tablet,delayed release (DR/EC) 40 mg PO DAILY Qty: 30 RF: 11 atorvastatin 40 mg tablet 40 mg PO DAILY Qty: 30 RF: 11 carvedilol 6.25 mg tablet 12.5 mg PO BID Qty: 60 RF: 0 sucralfate 1 gram tablet 1 g PO 4X/DAY Qty: 120 RF: 1 ondansetron 4 mg tablet,disintegrating 4 mg PO Q8H PRN PRN (Reason: Nausea) Qty: 30 RF: 3 Primary Care Provider: Tom Sherman Referrals: Tom Sherman MD [Primary Care Provider] - (And Martell Cross in cardiology as scheduled) Disposition Disposition: Home, self care
[2020-09-30 13:13] LABS: Absolute Lymphocyte Count 1.34 X10^3/uL (0.83-4.51); Absolute Neutrophil Count 5.4 X10^3/uL (2.0-7.7); Basophil# 0.09 X10^3/uL; Basophil% 1.1 % (0-1); Eosinophil# 0.39 X10^3/uL; Eosinophils% 4.9 % (0-5); Hematocrit 35.7 % (37-47); Hemoglobin 11.2 g/dL (12.0-15.0); Lymphocyte # 1.34 X10^3/ul (0.83-4.51); Mean Corp Hgb Conc 31.4 g/dL (32-36); Mean Corpuscular Hgb 29.6 pg (27.0-32.0); Mean Corpuscular Volume 94.4 fL (81-99); Mean Platelet Vol. 9.5 fl (6.2-12.0); Monocyte# 0.68 X10^3/uL; Monocyte% 8.6 % (0-10); NRBC Flagged by Analyzer 0 % (0-5); Neutrophil # 5.37 X10^3/uL (2.7-7.7); Neutrophil % 68.1 % (47-70); Platelet Count 286 K/mm3 (150-450); RBC Distribution Width CV 14.3 % (11.6-14.6); RBC Distribution Width SD 49.6 fl (35.1-43.9); Red Blood Count 3.78 M/mm3 (4.2-5.4); White Blood Count 7.9 K/mm3 (4.4-11.0)
[2020-09-30] MEDS: Mag Hydrox/Al Hydrox/Simeth 30 ML UDC PO (13:15)
[2020-09-30] MEDS: Ondansetron 4 MG/2 ML Vial IV (13:15)
[2020-09-30 13:31] LABS: Anion Gap 6 (5-15); BUN 19 mg/dL (7-18); BUN/Creat Ratio 19.8 RATIO (10-20); Calcium,Total 9.2 mg/dL (8.5-10.1); Chloride 102 mmol/L (98-107); Creatinine, Serum 0.96 mg/dL (0.55-1.02); EST Glomerular Filtration Rate 62 mL/min (>60); Est Glom Filt Rate - Afr Amer 75 mL/min (>60); Estimated Creatinine Clearance 52.57 ml/min; Glucose 225 mg/dL (74-106); Potassium 4.5 mmol/L (3.5-5.1); Sodium Level 133 mmol/L (136-145)
[2020-09-30] MEDS: traMADol 50 MG Tablet PO (14:53)
[2020-09-30] MEDS: Dicyclomine 10 MG Capsule 20 MG PO (14:53)
[2020-09-30 15:03] VITALS: BP 139/65; PULSE 56; RESP 19; O2SAT 98
== END 2020-09-30 15:04 | disposition home or self-care (01) ==
PROVIDERS: Emergency Provider Emergency Medicine; PCP Internal Medicine
DX: R07.9 Chest pain, unspecified (principal); F17.210 Nicotine dependence, cigarettes, uncomplicated
CPT/HCPCS: 71045; 80048; 84484; 85025; 93005; 96374; 99285; A4216; J2405

== ENCOUNTER → 2020-10-02 10:52 | Outpatient (CLI) | payer MEDICARE, MEDICAID, SELFPAY ==
[2016-07-13 11:45] VITALS: BMI 31.4
[2020-10-02 09:52] VITALS: BMI 28.9
--- NOTE | 2020-10-02 10:57 | VDLE_ITS ---
Reason For Study: pain RIGHT GSV is normal. CFV is compressible, spontaneous, phasic, competent and demonstrates normal augmentation. FV is compressible, spontaneous, phasic, competent and demonstrates normal augmentation. POP V is compressible, spontaneous, phasic, competent and demonstrates normal augmentation. T/P Trunk is compressible. PTV is compressible. RT PerV is compressible. Procedure This is a venous duplex using B-mode, color flow and spectral Doppler. Exam performed in department. The exam was abbreviated due to the COVID 19 protocol. The exam was diagnostic. A preliminary report was called and/or faxed to Carlton Rocha. VL/Venous Duplex US, Unilateral Interpretation Summary Deep veins of the right lower extremity are patent and compressible segmentally . There is no evidence of right lower extremity deep vein thrombosis. Valvular competence janice ears intact within the proximal deep venous system on the right . The right great saphenous vein a ppears patent and compressible segmentally. Ordering Physician: Carlton Rocha Performed By: Nolan Jimenez RVT
== END ==
PROVIDERS: PCP Internal Medicine; Referring Provider Nurse Practitioner Family; Visit Provider Nurse Practitioner Family
DX: M79.89 Other specified soft tissue disorders (principal)
CPT/HCPCS: 93971

== ENCOUNTER 2020-10-05 15:56 | Emergency (ER) | payer MEDICARE, MEDICAID, SELFPAY ==
[2016-07-13 11:45] VITALS: BMI 31.4
[2020-10-02 09:52] VITALS: BMI 28.9
[2020-10-05 15:56] VITALS: BP 119/67; PULSE 71; RESP 16; TEMP 36.3; O2SAT 98; BMI 28.9
--- NOTE | 2020-10-05 16:39 | EKG12_ITS ---
Test Reason : CP Blood Pressure : / mmHG Vent. Rate : 064 BPM Atrial Rate : 064 BPM P-R Int : 150 ms QRS Dur : 090 ms QT Int : 418 ms P-R-T Axes : 041 -43 081 degrees QTc Int : 431 ms Normal sinus rhythm Left axis deviation Septal infarct , age undetermined Inferior infarct , age undetermined T wave abnormality, consider anterior ischemia Abnormal ECG Confirmed by ALLAN WITT, DORYS ([id number]), editor in chief YUNG MUNGUIA ([id number]) on 10/08/2020 1:33:33 PM Referred By: EMMETT Confirmed By:DORYS LEMUS MD
--- NOTE | 2020-10-05 16:39 | EDS_ITS ---
HPI History of Present Illness Chief Complaint: Chest Pain Informant: patient Narrative Narrative: 64-year-old female with a history of prior stenting to the LAD states that she took a nap when she woke up around 1:00 she had pain a pressure-like sensation from the center of her chest to her left armpit. She states that her chest is very tender to palpation. She took her blood pressure and it was 178/73. She states she took some nitroglycerin with no relief. She also took 4 baby aspirin's. She was feel nauseous earlier today so she also took some Zofran. She took her pulse ox was 89% per her so she called her doctor and they recommended that she come to emergency so she called EMS. Prehospital EKG was reviewed and did not show any concerning symptoms of ACS. Patient just had cardiac catheterization on September 25 and was found to have minimal luminal irregularities and a patent LAD stent. 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 Cervical spinal stenosis Chronic systolic (congestive) heart failure COPD (chronic obstructive pulmonary disease) Diabetes mellitus type 2 in nonobese Essential (primary) hypertension History of ST elevation myocardial infarction (STEMI) IBS (irritable bowel syndrome) Irritable bowel syndrome with diarrhea Ischemic cardiomyopathy Left ventricular hypertrophy Major depression Multiple sclerosis Nicotine abuse BRYAN (obstructive sleep apnea) Pain of right lower extremity Paroxysmal atrial fibrillation RLS (restless legs syndrome) Suicidal ideation Tachycardia Takotsubo syndrome Vitamin B12 deficiency Home Medications aspirin 81 mg PO DAILY 10/21/16 [History Last Taken 08/14/20 09:00] albuterol sulfate 2 puff INHALATION Q6H PRN PRN 10/23/17 [History Last Taken 06/08/19] ropinirole 0.5 mg tablet 1 mg PO QHS tablet 08/21/19 [History Last Taken 08/13/20] conj estrog-medroxyprogest raquel 1 tablet PO DAILY 09/20/19 [History Last Taken 08/14/20 09:00] teriflunomide 14 mg PO DAILY 09/20/19 [History Last Taken 08/14/20 09:00] modafinil 200 mg PO DAILY 12/12/19 [History Last Taken 08/14/20 09:00] pioglitazone 30 mg PO DAILY 12/25/19 [History Last Taken 12/25/19 21:00] ropinirole 1 mg PO LUNCH 12/25/19 [History Last Taken 08/14/20 13:00] dicyclomine 20 mg tablet 20 mg PO BID PRN #180 tablet 03/15/20 [Rx Last Taken 08/14/20 13:00] clopidogrel 75 mg tablet 75 mg PO DAILY #90 tablet 05/14/20 [Rx Last Taken 08/14/20 09:00] acetaminophen 1,000 mg PO TID PRN #1 tablet 07/29/20 [Rx Last Taken Unknown] isosorbide mononitrate 30 mg tablet,extended release 24 hr 30 mg PO DAILY #30 tablet 08/06/20 [Rx Last Taken 08/14/20 09:00] blood sugar diagnostic #100 each 08/10/20 [Rx Last Taken Unknown] blood-glucose meter #1 each 08/10/20 [Rx Last Taken Unknown] ascorbic acid (vitamin C) 500 mg PO DAILY #30 tab.chew 08/17/20 [Rx Last Taken Unknown] ferrous sulfate 325 mg PO DAILY #30 tablet 08/17/20 [Rx Last Taken Unknown] glimepiride 4 mg PO BID #0 08/17/20 [Rx Last Taken 08/14/20 09:00] atorvastatin 40 mg tablet 40 mg PO DAILY #30 tab 09/18/20 [Rx Last Taken Unknown] carvedilol 6.25 mg tablet 12.5 mg PO BID #60 tab 09/18/20 [Rx Last Taken Unknown] cholecalciferol (vitamin D3) 25 mcg (1,000 unit) capsule 50 mcg PO DAILY cap 09/18/20 [History Last Taken Unknown] hydroxyzine HCl 50 mg tablet 50 mg PO TID 09/18/20 [History Last Taken Unknown] lisinopril 2.5 mg tablet 5 mg PO DAILY #30 tablet 09/18/20 [Rx Last Taken Unkno wn] mirabegron 25 mg tablet,extended release 24 hr 100 mg PO Q24H tab 09/18/20 [History Last Taken Unknown] nitroglycerin 0.4 mg sublingual tablet 0.4 mg SL ONCE #25 tablet 09/18/20 [Rx Last Taken Unknown] ondansetron 4 mg disintegrating tablet 4 mg PO Q8H PRN PRN #30 tab 09/18/20 [Rx Last Taken Unknown] pantoprazole 40 mg tablet,delayed release 40 mg PO DAILY #30 tablet 09/18/20 [Rx Last Taken Unknown] potassium chloride 20 mEq tablet,extended release 20 meq PO DAILY 09/18/20 [History Last Taken Unknown] sucralfate 1 gram tablet 1 g PO 4X/DAY #120 tablet 09/18/20 [Rx Last Taken Unknown] trazodone 50 mg tablet 50 mg PO QHS PRN #30 tablet 09/18/20 [Rx Last Taken Unknown] acidophilus-pectin, citrus 1 cap PO DAILY 09/23/20 [History Last Taken Unknown] duloxetine [Cymbalta] 30 mg PO BID 09/23/20 [History Last Taken Unknown] donepezil 10 mg tablet 20 mg PO DAILY #180 tab 10/02/20 [Rx Last Taken Unknown] Allergy/AdvReac Type Severity Reaction Status Date / Time indomethacin [From Indocin] Allergy Hives Verified 10/05/20 15:58 indomethacin sodium Allergy Hives Verified 10/05/20 15:58 [From Indocin] iodine Allergy Hives Verified 10/05/20 15:58 propoxyphene napsylate Allergy Out of Verified 10/05/20 15:58 [From Darvocet-N] control aripiprazole [From Abilify] AdvReac Other Verified 10/05/20 15:58 aspirin AdvReac Upset Verified 10/05/20 15:58 Stomach clindamycin AdvReac Nausea Verified 10/05/20 15:58 metformin AdvReac Other Verified 10/05/20 15:58 sumatriptan [From Imitrex] AdvReac Vomiting Verified 10/05/20 15:58 Family History Father Cancer Lung cancer Mother Cancer Pancreatic cancer Surgical History History of amputation of left great toe History of back surgery History of cervical discectomy History of coronary artery stent placement (04/08/16) History of left heart catheterization (09/25/20) History of left knee surgery History of loop recorder (06/2014) History of tonsillectomy and adenoidectomy Social History household members: none Smoking Status: Current every day smoker tobacco type: cigarettes alcohol intake: never substance use type: does not use caffeine: Yes Type: coffee Number of servings: 1 what type of physical activity do you participate in: none and other details: Physical Therapy ROS ROS ED Constitutional Constitutional ED: Denies chills or weight loss Eyes Eyes: Denies change in vision or diplopia ENT ENT ED: Denies ear pain, rhinorrhea or sore throat Cardiovascular Cardiovascular: Reports chest pain; Denies orthopnea, palpitations or racing heartbeat Respiratory/Chest Respiratory/Chest: Denies cough, dyspnea or orthopnea Gastrointestinal Gastrointestinal: Reports nausea; Denies abdominal pain, diarrhea or vomiting Genitourinary Genitourinary ED: Denies dysuria, hematuria or urinary frequency Musculoskeletal Musculoskeletal: Denies arthralgias or myalgias Integumentary Denies abscess or rash Neurologic Neurologic: Denies headache(s) or weakness Psychiatric Psychiatric: Denies anxiety, depression, suicidal ideation or suicidal thoughts Endocrine Endocrinology: Denies polydipsia, polyphagia or polyuria Allergic/Immunologic Allergic/Immunologic ED: Denies mouth swelling, tongue swelling or urticaria EXAM Physical Exam Const Vital Signs: 10/05/20 15:56 10/05/20 16:53 10/05/20 17:09 Temperature 97.4 F L Temperature Source Temporal Pulse Rate 71 62 Respiratory Rate 16 21 H Respiratory Effort Normal Non-Labored Blood Pressure 119/67 Blood Pressure Mean 84 Pulse Ox 98 98 Oxygen Delivery Method Room Air Room Air Positive well nourished and well developed General Appearance ED: well developed HEENT Reports normocephalic, head/scalp atraumatic and moist mucous membranes Eyes PERRL and EOMs intact bilaterally Neck no lymphadenopathy, supple and no JVD Chest Wall Negative for palpation of chest normal Chest Narrative: Patient noted exquisite tenderness to palpation when I touch the left costochondral border. Resp normal respiratory effort and clear to auscultation bilaterally Cardio regular rate, regular rhythm and no murmurs GI normal to inspection, nondistended, normoactive bowel sounds and non-tender Palpation: soft Back/Spine no CVA tenderness and normal ROM Extremity normal to inspection General Extremety ED: Negative for edema General Extremity: Negative for edema Neuro oriented x3 and CN's II-XII intact bilaterally Sensorium / Orientation: alert Motor Exam: strength 5/5 throughout Psych mental status grossly normal Mood & Affect: Negative for depressed or tearful Skin no rashes or lesions noted and no wounds Heart Score History: Slightly/Non-Suspicious ECG: Normal Age: >/= 65 years Risk Factors: >/= 3 Risk Factors or History of CAD Troponin: </= Normal Limit Score: 4 MDM MDM MDM Narrative Medical decision making narrative: My interpretation of the plain film of the chest x-ray is no acute process. Troponin is negative. EKG is normal. Her pain is reproducible. I suspect that this is musculoskeletal in nature. Home care discussed with patient. Lab Data Attestation: I reviewed the patient's lab results. Labs: Laboratory Results - last 24 hr 10/05/20 10/05/20 17:00 17:00 WBC 6.0 RBC 3.80 L Hgb 11.0 L Hct 35.4 L MCV 93.2 MCH 28.9 MCHC 31.1 L RDW Std Deviation 47.6 H RDW Coeff of Yeimi 14.0 Plt Count 265 MPV 9.6 Immature Gran % (Auto) 0.200 Neut % (Auto) 53.4 Lymph % (Auto) 27.2 Bollinger % (Auto) 12.1 H Eos % (Auto) 5.8 H Baso % (Auto) 1.3 H Absolute Neuts (auto) 3.2 Absolute Lymphs (auto) 1.64 Nucleated RBC % 0 Sodium 134 L Potassium 4.5 Chloride 104 Carbon Dioxide 27.0 Anion Gap 3 L BUN 23 H Creatinine 0.98 Estim Creat Clear Calc 51.50 Est GFR (MDRD) Af Amer 73 Est GFR (MDRD) Non-Af 60 BUN/Creatinine Ratio 23.4 H Glucose 193 H Calcium 9.6 Troponin I < 0.015 EKG Initial EKG: Attestation: I personally reviewed and interpreted this EKG as follows: Comments: EKG demonstrates a normal sinus rhythm at a rate of 64. No concerning features of ACS or ectopy noted. Discharge Plan Triage Chief Complaint: Chest Pain ED Provider: Cheko Ortiz Dx/Rx/DC Orders Clinical Impression: Acute chest pain Instructions: ED Chest Wall Pain, Costochondritis Prescriptions: No Action ropinirole [Requip] 0.5 mg tablet 1 mg PO QHS RF: 0 dicyclomine 20 mg tablet 20 mg PO BID PRN (Reason: abdominal discomfort) Qty: 180 RF: 2 hydroxyzine HCl 50 mg tablet 50 mg PO TID RF: 0 potassium chloride 20 mEq tablet extended release 20 meq PO DAILY RF: 0 Myrbetriq 25 mg tablet extended release 24 hr 100 mg PO Q24H RF: 0 cholecalciferol (vitamin D3) 25 mcg (1,000 unit) capsule 50 mcg PO DAILY RF: 0 trazodone 50 mg tablet 50 mg PO QHS PRN (Reason: insomnia) Qty: 30 RF: 1 nitroglycerin 0.4 mg tablet, sublingual 0.4 mg SL ONCE Qty: 25 RF: 3 donepezil [Aricept] 10 mg tablet 20 mg PO DAILY Qty: 180 RF: 1 aspirin 81 MG tablet 81 mg PO DAILY RF: 0 albuterol sulfate 1 INHALER inhaler 2 puff INHALATION Q6H PRN PRN (Reason: Sob &/Or Wheezing) RF: 0 conj estrog-medroxyprogest raquel 1 TAB tablet 1 tablet PO DAILY RF: 0 teriflunomide 14 mg tablet 14 mg PO DAILY RF: 0 modafinil 200 MG tablet 200 mg PO DAILY RF: 0 ropinirole 1 MG tablet 1 mg PO LUNCH RF: 0 pioglitazone 30 MG tablet 30 mg PO DAILY RF: 0 acetaminophen 500 MG tablet 1,000 mg PO TID PRN (Reason: pain ) Qty: 1 RF: 0 ferrous sulfate 325 MG tablet 325 mg PO DAILY Qty: 30 RF: 2 ascorbic acid (vitamin C) 500 MG tablet,chewable 500 mg PO DAILY Qty: 30 RF: 0 glimepiride 4 MG tablet 4 mg PO BID Qty: 0 RF: 0 duloxetine [Cymbalta] 30 mg capsule,delayed release(DR/EC) 30 mg PO BID RF: 0 acidophilus-pectin, citrus 100 million cell-10 mg Capsule 1 cap PO DAILY RF: 0 clopidogrel 75 mg tablet 75 mg PO DAILY Qty: 90 RF: 3 isosorbide mononitrate 30 mg tablet extended release 24 hr 30 mg PO DAILY Qty: 30 RF: 11 (DME) blood-glucose meter [Accu-Chek Ada Plus Meter] Misc See Rx Instructions .ROUTE .MEDSUPPLY Qty: 1 RF: 0 (DME) Accu-Chek Ada Plus test strp Strip See Rx Instructions .ROUTE .MEDSUPPLY Qty: 100 RF: 3 lisinopril 2.5 mg tablet 5 mg PO DAILY Qty: 30 RF: 11 pantoprazole 40 mg tablet,delayed release (DR/EC) 40 mg PO DAILY Qty: 30 RF: 11 atorvastatin 40 mg tablet 40 mg PO DAILY Qty: 30 RF: 11 carvedilol 6.25 mg tablet 12.5 mg PO BID Qty: 60 RF: 0 sucralfate 1 gram tablet 1 g PO 4X/DAY Qty: 120 RF: 1 ondansetron 4 mg tablet,disintegrating 4 mg PO Q8H PRN PRN (Reason: Nausea) Qty: 30 RF: 3 Primary Care Provider: Tom Sherman Referrals: Tom Sherman MD [Primary Care Provider] - As Needed Disposition Disposition: Home, self care
[2020-10-05] MEDS: Ondansetron 4 MG/2 ML Vial IV (17:06)
[2020-10-05] MEDS: Morphine 4 MG/ML Syringe IV (17:06)
[2020-10-05 17:09] VITALS: PULSE 62; RESP 21; O2SAT 98
[2020-10-05 17:17] LABS: Absolute Lymphocyte Count 1.64 X10^3/uL (0.83-4.51); Absolute Neutrophil Count 3.2 X10^3/uL (2.0-7.7); Basophil# 0.08 X10^3/uL; Basophil% 1.3 % (0-1); Eosinophil# 0.35 X10^3/uL; Eosinophils% 5.8 % (0-5); Hematocrit 35.4 % (37-47); Lymphocyte # 1.64 X10^3/ul (0.83-4.51); Lymphocyte % 27.2 % (19-41); Mean Corp Hgb Conc 31.1 g/dL (32-36); Mean Corpuscular Hgb 28.9 pg (27.0-32.0); Mean Corpuscular Volume 93.2 fL (81-99); Mean Platelet Vol. 9.6 fl (6.2-12.0); Monocyte# 0.73 X10^3/uL; Monocyte% 12.1 % (0-10); NRBC Flagged by Analyzer 0 % (0-5); Neutrophil # 3.23 X10^3/uL (2.7-7.7); Neutrophil % 53.4 % (47-70); Platelet Count 265 K/mm3 (150-450); RBC Distribution Width SD 47.6 fl (35.1-43.9)
--- NOTE | 2020-10-05 17:20 | RAD_ITS ---
STUDY: X-RAY CHEST REASON FOR EXAM: Female, 64 years old. Chest pain TECHNIQUE: 1 view COMPARISON: 09/30/2020 FINDINGS: Cardiomediastinal silhouette is unremarkable. Costophrenic angles are sharp. Lungs are clear. The trachea is midline. There is no pneumothorax. Fusion hardware is noted in the lower cervical spine. RAD/Chest 1 View (Portable) IMPRESSION: No acute cardiopulmonary process. Electronically Signed: Alberto Segal MD at 18:17 EDT Tel , Service support ,
[2020-10-05 17:31] LABS: Anion Gap 3 (5-15); BUN 23 mg/dL (7-18); BUN/Creat Ratio 23.4 RATIO (10-20); Calcium,Total 9.6 mg/dL (8.5-10.1); Chloride 104 mmol/L (98-107); Creatinine, Serum 0.98 mg/dL (0.55-1.02); EST Glomerular Filtration Rate 60 mL/min (>60); Est Glom Filt Rate - Afr Amer 73 mL/min (>60); Glucose 193 mg/dL (74-106); Potassium 4.5 mmol/L (3.5-5.1); Sodium Level 134 mmol/L (136-145)
== END 2020-10-05 18:14 | disposition home or self-care (01) ==
PROVIDERS: Emergency Provider Emergency Medicine; PCP Internal Medicine
DX: R07.9 Chest pain, unspecified (principal); F17.210 Nicotine dependence, cigarettes, uncomplicated; I25.10 Atherosclerotic heart disease of native coronary artery without angina pectoris; Z95.5 Presence of coronary angioplasty implant and graft
CPT/HCPCS: 71045; 80048; 84484; 85025; 93005; 96374; 96375; 99285; A4216; J2405

== ENCOUNTER 2020-11-04 09:22 | Emergency (ER) | payer MEDICARE, MEDICAID, SELFPAY ==
[2016-07-13 11:45] VITALS: BMI 31.4
[2020-10-08 14:38] VITALS: BMI 28.9
[2020-11-04 09:23] VITALS: BP 157/69; PULSE 68; RESP 14; TEMP 36.9; O2SAT 97; BMI 29.1
--- NOTE | 2020-11-04 09:54 | ED.VIS.CHEST ---
HPI History of Present Illness Chief Complaint: Chest Pain Informant: patient Onset/Context/Timing Onset: Today Activity at onset: sudden Timing: Continuous Quality: Positive for Sharp Location: Left Chest Worsened By: Breathing Relieved By: Nothing Associated Symptoms: Positive for Nausea; Negative for Vomiting, Diaphoresis, Dyspnea, Cough, Fever, Lightheadedness, Acid Reflux and Palpitations Narrative Narrative: Patient presents with chest pain that began today. Patient states the pain woke her up this morning. Patient states the pain is sharp. Patient states pain is over the left chest. Patient states her pain is worse with deep breathing. Patient states nothing seems to help. Patient states EMS administered sublingual nitroglycerin which gave her headache but did not change her chest pain. Patient admits to nausea but denies any vomiting. Patient states she has been having some diarrhea over the past few days. CVD Risk Factors: Positive for Hypertension, Diabetes, Hypercholesterolemia and Smoking; Negative for Family History 1' </=55 PE Risk Factors: Positive for Prior DVT or PE; Negative for Recent Travel/Surgery, Recent Immobilization and Cancer [facility] Medical History Anxiety Apical mural thrombus with acute [place] Atherosclerotic heart disease of [place] coronary artery without angina pectoris Cervical spinal stenosis Chronic systolic (congestive) heart failure COPD (chronic obstructive pulmonary disease) Diabetes mellitus type 2 in nonobese Essential (primary) hypertension History of ST elevation myocardial infarction (STEMI) IBS (irritable bowel syndrome) Irritable bowel syndrome with diarrhea Ischemic cardiomyopathy Left ventricular hypertrophy Major depression Multiple sclerosis Nicotine abuse BRYAN (obstructive sleep apnea) Pain of right lower extremity Paroxysmal atrial fibrillation RLS (restless legs syndrome) Suicidal ideation Tachycardia Takotsubo syndrome Vitamin B12 deficiency Home Medications aspirin 81 mg PO DAILY 10/21/16 [History Last Taken 08/14/20 09:00] albuterol sulfate 2 puff INHALATION Q6H PRN PRN 10/23/17 [History Last Taken 06/08/19] ropinirole 0.5 mg tablet 1 mg PO QHS tablet 08/21/19 [History Last Taken 08/13/20] conj estrog-medroxyprogest raquel 1 tablet PO DAILY 09/20/19 [History Last Taken 08/14/20 09:00] teriflunomide 14 mg PO DAILY 09/20/19 [History Last Taken 08/14/20 09:00] modafinil 200 mg PO DAILY 12/12/19 [History Last Taken 08/14/20 09:00] pioglitazone 30 mg PO DAILY 12/25/19 [History Last Taken 12/25/19 21:00] ropinirole 1 mg PO LUNCH 12/25/19 [History Last Taken 08/14/20 13:00] dicyclomine 20 mg tablet 20 mg PO BID PRN #180 tablet 03/15/20 [Rx Last Taken 08/14/20 13:00] clopidogrel 75 mg tablet 75 mg PO DAILY #90 tablet 05/14/20 [Rx Last Taken 08/14/20 09:00] acetaminophen 1,000 mg PO TID PRN #1 tablet 07/29/20 [Rx Last Taken Unknown] blood sugar diagnostic #100 each 08/10/20 [Rx Last Taken Unknown] blood-glucose meter #1 each 08/10/20 [Rx Last Taken Unknown] ascorbic acid (vitamin C) 500 mg PO DAILY #30 tab.chew 08/17/20 [Rx Last Taken Unknown] ferrous sulfate 325 mg PO DAILY #30 tablet 08/17/20 [Rx Last Taken Unknown] glimepiride 4 mg PO BID #0 08/17/20 [Rx Last Taken 08/14/20 09:00] atorvastatin 40 mg tablet 40 mg PO DAILY #30 tab 09/18/20 [Rx Last Taken Unknown] carvedilol 6.25 mg tablet 12.5 mg PO BID #60 tab 09/18/20 [Rx Last Taken Unknown] cholecalciferol (vitamin D3) 25 mcg (1,000 unit) capsule 50 mcg PO DAILY cap 09/18/20 [History Last Taken Unknown] lisinopril 2.5 mg tablet 5 mg PO DAILY #30 tablet 09/18/20 [Rx Last Taken Unknown] mirabegron 25 mg tablet,extended release 24 hr 100 mg PO Q24H tab 09/18/20 [History Last Taken Unknown] nitroglycerin 0.4 mg sublingual tablet 0.4 mg SL ONCE #25 tablet 09/18/20 [Rx Last Taken Unknown] ondansetron 4 mg disintegrating tablet 4 mg PO Q8H PRN PRN #30 tab 09/18/20 [Rx Last Taken Unknown] pantoprazole 40 mg tablet,delayed release 40 mg PO DAILY #30 tablet 09/18/20 [Rx Last Taken Unknown] potassium chloride 20 mEq tablet,extended release 20 meq PO DAILY 09/18/20 [History Last Taken Unknown] sucralfate 1 gram tablet 1 g PO 4X/DAY #120 tablet 09/18/20 [Rx Last Taken Unknown] trazodone 50 mg tablet 50 mg PO QHS PRN #30 tablet 09/18/20 [Rx Last Taken Unknown] acidophilus-pectin, citrus 1 cap PO DAILY 09/23/20 [History Last Taken Unknown] duloxetine [Cymbalta] 30 mg PO BID 09/23/20 [History Last Taken Unknown] donepezil 10 mg tablet 20 mg PO DAILY #180 tab 10/02/20 [Rx Last Taken Unknown] isosorbide mononitrate 30 mg tablet,extended release 24 hr 30 mg PO BID #60 tab 10/08/20 [Rx Last Taken Unknown] hydroxyzine HCl 50 mg tablet 50 mg PO TID #90 tab 10/19/20 [Rx Last Taken Unknown] Allergy/AdvReac Type Severity Reaction Status Date / Time indomethacin [From Indocin] Allergy Hives Verified 11/04/20 09:28 indomethacin sodium Allergy Hives Verified 11/04/20 09:28 [From Indocin] iodine Allergy Hives Verified 11/04/20 09:28 propoxyphene napsylate Allergy Out of Verified 11/04/20 09:28 [From Darvocet-N] control aripiprazole [From Abilify] AdvReac Other Verified 11/04/20 09:28 aspirin AdvReac Upset Verified 11/04/20 09:28 Stomach clindamycin AdvReac Nausea Verified 11/04/20 09:28 metformin AdvReac Other Verified 11/04/20 09:28 sumatriptan [From Imitrex] AdvReac Vomiting Verified 11/04/20 09:28 Family History Father Cancer Lung cancer Mother Cancer Pancreatic cancer Surgical History History of amputation of left great toe History of back surgery History of cervical discectomy History of coronary artery stent placement (04/08/16) History of left heart catheterization (09/25/20) History of left knee surgery History of loop recorder (06/2014) History of tonsillectomy and adenoidectomy Social History household members: none Smoking Status: Current every day smoker tobacco type: cigarettes alcohol intake: never substance use type: does not use caffeine: Yes Type: coffee Number of servings: 1 what type of physical activity do you participate in: none and other details: Physical Therapy ROS ROS ED Constitutional Constitutional ED: Denies chills or fever(s) Eyes Eyes: Denies blurry vision or change in vision ENT ENT ED: Denies rhinorrhea or sore throat Cardiovascular Cardiovascular: Reports chest pain; Denies palpitations Respiratory/Chest Respiratory/Chest: Denies cough or dyspnea Gastrointestinal Gastrointestinal: Reports diarrhea and nausea; Denies abdominal pain or vomiting Genitourinary Genitourinary ED: Denies dysuria or hematuria Musculoskeletal Musculoskeletal: Denies back pain or neck pain Integumentary Denies abscess or rash Neurologic Neurologic: Reports headache(s); Denies weakness Allergic/Immunologic Allergic/Immunologic ED: Denies mouth swelling or urticaria EXAM Physical Exam Const Vital Signs: 11/04/20 09:23 11/04/20 11:19 11/04/20 11:21 Temperature 98.5 F Temperature Source Oral Pulse Rate 68 59 L Respiratory Rate 14 12 Respiratory Effort Normal Blood Pressure 157/69 H 136/64 H Blood Pressure Mean 98 88 Pulse Ox 97 95 Oxygen Delivery Method Room Air Room Air 11/04/20 12:08 Temperature Temperature Source Pulse Rate 54 L Respiratory Rate 16 Respiratory Effort Blood Pressure 129/54 H Blood Pressure Mean 79 Pulse Ox 96 Oxygen Delivery Method Room Air Positive well nourished and well developed General Appearance ED: well developed HEENT normocephalic and atraumatic Eyes PERRL and EOMs intact bilaterally Neck supple and no JVD Chest Wall palpation of chest normal Resp normal respiratory effort and clear to auscultation bilaterally Effort and Inspection: Negative for respiratory distress Cardio regular rate, regular rhythm and no murmurs GI normal to inspection, nondistended, normoactive bowel sounds, soft to palpation, non-tender and non-distended Extremity normal to inspection General Extremety ED: Negative for edema or tenderness General Extremity: Negative for edema Neuro oriented x3, CN's II-XII intact bilaterally and no sensory deficits noted Sensorium / Orientation: awake and alert Motor Exam: strength 5/5 throughout Psych mental status grossly normal Heart Score History: Slightly/Non-Suspicious ECG: Nonspecific Repolarization Age: >/= 65 years Risk Factors: >/= 3 Risk Factors or History of CAD Troponin: </= Normal Limit Score: 5 MDM MDM MDM Narrative Medical decision making narrative: Patient was given morphine and Zofran. EKG shows a normal sinus rhythm with a rate of 67. On my interpretation, there are nonspecific ST-T wave changes noted. There are no acute changes noted. There is left axis deviation at -51. This was unchanged compared to previous EKG dated 10/05/2020. Portable 1 view chest x-ray was obtained. On my interpretation, lung jeffery are clear. There is normal cardiac silhouette. Bony thorax is normal. There is no acute process noted. Radiologist also interpreted the x-ray and agrees. CBC and basic metabolic profile were obtained and were within normal limits. High-sensitivity troponin was 12.0. A 2-hour delta high-sensitivity troponin was obtained and was 11.3. Patient was advised of her findings. Since her troponin has decreased in the past 2 hours, I do not feel this is cardiac in nature. Feel patient is safe to be discharged home. Patient will be instructed to follow-up with her primary care physician in 3 to 5 days. Patient understood and was agreeable with the plan. All questions were answered. Lab Data Attestation: I reviewed the patient's lab results. Labs: Laboratory Results - last 24 hr 11/04/20 11/04/20 11/04/20 09:40 09:40 11:37 WBC 8.4 RBC 4.11 L Hgb 11.5 L Hct 37.5 MCV 91.2 MCH 28.0 MCHC 30.7 L RDW Std Deviation 46.5 H RDW Coeff of Yeimi 13.8 Plt Count 262 MPV 10.0 Immature Gran % (Auto) 0.600 Neut % (Auto) 69.2 Lymph % (Auto) 14.4 L Harlan % (Auto) 10.1 H Eos % (Auto) 4.9 Baso % (Auto) 0.8 Absolute Neuts (auto) 5.8 Absolute Lymphs (auto) 1.21 Nucleated RBC % 0 Sodium 134 L Potassium 4.2 Chloride 104 Carbon Dioxide 21.0 Anion Gap 9 BUN 19 H Creatinine 0.86 Estim Creat Clear Calc 58.68 Est GFR (MDRD) Af Amer 85 Est GFR (MDRD) Non-Af 70 BUN/Creatinine Ratio 22.0 H Glucose 184 H Calcium 8.9 Troponin I High Sens 12.0 11.3 Radiography Diagnostic Testing: Radiology Impression Chest X-Ray 11/04/20 10:31 IMPRESSION: Normal x-ray examination of the chest. Electronically Signed: Armando Taylor MD at 11:03 EDT Tel , Service support , EKG Initial EKG: Attestation: I personally reviewed and interpreted this EKG as follows: Interpretation: Sinus Rhythm (87) and No Acute Injury Pattern Comments: Left axis deviation, low voltage Prior EKG tracings: available for review Prior: Unchanged (10/05/2020) Discharge Plan Triage Chief Complaint: Chest Pain ED Provider: Yg Rojas Dx/Rx/DC Orders Clinical Impression: Chest pain Instructions: ED Chest Pain, Uncertain Cause Prescriptions: No Action ropinirole [Requip] 0.5 mg tablet 1 mg PO QHS RF: 0 dicyclomine 20 mg tablet 20 mg PO BID PRN (Reason: abdominal discomfort) Qty: 180 RF: 2 potassium chloride 20 mEq tablet extended release 20 meq PO DAILY RF: 0 Myrbetriq 25 mg tablet extended release 24 hr 100 mg PO Q24H RF: 0 cholecalciferol (vitamin D3) 25 mcg (1,000 unit) capsule 50 mcg PO DAILY RF: 0 trazodone 50 mg tablet 50 mg PO QHS PRN (Reason: insomnia) Qty: 30 RF: 1 nitroglycerin 0.4 mg tablet, sublingual 0.4 mg SL ONCE Qty: 25 RF: 3 isosorbide mononitrate 30 mg tablet extended release 24 hr 30 mg PO BID Qty: 60 RF: 11 donepezil [Aricept] 10 mg tablet 20 mg PO DAILY Qty: 180 RF: 1 aspirin 81 MG tablet 81 mg PO DAILY RF: 0 albuterol sulfate 1 INHALER inhaler 2 puff INHALATION Q6H PRN PRN (Reason: Sob &/Or Wheezing) RF: 0 conj estrog-medroxyprogest raquel 1 TAB tablet 1 tablet PO DAILY RF: 0 teriflunomide 14 mg tablet 14 mg PO DAILY RF: 0 modafinil 200 MG tablet 200 mg PO DAILY RF: 0 ropinirole 1 MG tablet 1 mg PO LUNCH RF: 0 pioglitazone 30 MG tablet 30 mg PO DAILY RF: 0 acetaminophen 500 MG tablet 1,000 mg PO TID PRN (Reason: pain -02/03) Qty: 1 RF: 0 ferrous sulfate 325 MG tablet 325 mg PO DAILY Qty: 30 RF: 2 ascorbic acid (vitamin C) 500 MG tablet,chewable 500 mg PO DAILY Qty: 30 RF: 0 glimepiride 4 MG tablet 4 mg PO BID Qty: 0 RF: 0 duloxetine [Cymbalta] 30 mg capsule,delayed release(DR/EC) 30 mg PO BID RF: 0 acidophilus-pectin, citrus 100 million cell-10 mg Capsule 1 cap PO DAILY RF: 0 clopidogrel 75 mg tablet 75 mg PO DAILY Qty: 90 RF: 3 (DME) blood-glucose meter [Accu-Chek Ada Plus Meter] Misc See Rx Instructions .ROUTE .MEDSUPPLY Qty: 1 RF: 0 (DME) Accu-Chek Ada Plus test strp Strip See Rx Instructions .ROUTE .MEDSUPPLY Qty: 100 RF: 3 lisinopril 2.5 mg tablet 5 mg PO DAILY Qty: 30 RF: 11 pantoprazole 40 mg tablet,delayed release (DR/EC) 40 mg PO DAILY Qty: 30 RF: 11 atorvastatin 40 mg tablet 40 mg PO DAILY Qty: 30 RF: 11 carvedilol 6.25 mg tablet 12.5 mg PO BID Qty: 60 RF: 0 sucralfate 1 gram tablet 1 g PO 4X/DAY Qty: 120 RF: 1 ondansetron 4 mg tablet,disintegrating 4 mg PO Q8H PRN PRN (Reason: Nausea) Qty: 30 RF: 3 hydroxyzine HCl 50 mg tablet 50 mg PO TID Qty: 90 RF: 0 Primary Care Provider: oTm Sherman Referrals: Tom Sherman MD [Primary Care Provider] - 3-5 Days Disposition Disposition: Home, Self Care
--- NOTE | 2020-11-04 10:31 | RAD_ITS ---
STUDY: X-RAY CHEST REASON FOR EXAM: Female, 64 years old. chest pain TECHNIQUE: Single AP portable view of the chest. COMPARISON: 10/05/2020 FINDINGS: The lungs are clear and expanded. There is no demonstrated pleural abnormality. Normal size heart. Normal mediastinum and sara. Normal visualized pulmonary arteries. Normal visualized aortic arch and descending thoracic aorta. Normal visualized thoracic spine. Normal visualized ribs, clavicles, and shoulders. There is no demonstrated abnormality of the visualized soft tissue structures of the upper abdomen. RAD/Chest 1 View (Portable) IMPRESSION: Normal x-ray examination of the chest. Electronically Signed: Armando Taylor MD at 11:03 EDT Tel , Service support ,
--- NOTE | 2020-11-04 10:31 | EKG12_ITS ---
Test Reason : CP Blood Pressure : / mmHG Vent. Rate : 067 BPM Atrial Rate : 067 BPM P-R Int : 164 ms QRS Dur : 094 ms QT Int : 426 ms P-R-T Axes : 034 -51 084 degrees QTc Int : 450 ms Normal sinus rhythm Left axis deviation Low voltage QRS Septal infarct , age undetermined Possible Lateral infarct , age undetermined Inferior infarct , age undetermined Abnormal ECG Confirmed by CATHERINE WITT, GRIS ([id number]), editor house organ YUNG MUNGUIA ([id number]) on 11/07/2020 9:18:57 AM Referred By: FARZANA Confirmed By:GRIS ALEXANDER MD
[2020-11-04 10:44] LABS: Absolute Lymphocyte Count 1.21 X10^3/uL (0.83-4.51); Absolute Neutrophil Count 5.8 X10^3/uL (2.0-7.7); Basophil# 0.07 X10^3/uL; Basophil% 0.8 % (0-1); Eosinophil# 0.41 X10^3/uL; Eosinophils% 4.9 % (0-5); Hematocrit 37.5 % (37-47); Hemoglobin 11.5 g/dL (12.0-15.0); Lymphocyte # 1.21 X10^3/ul (0.83-4.51); Lymphocyte % 14.4 % (19-41); Mean Corp Hgb Conc 30.7 g/dL (32-36); Mean Corpuscular Volume 91.2 fL (81-99); Monocyte# 0.85 X10^3/uL; Monocyte% 10.1 % (0-10); NRBC Flagged by Analyzer 0 % (0-5); Neutrophil # 5.84 X10^3/uL (2.7-7.7); Neutrophil % 69.2 % (47-70); Platelet Count 262 K/mm3 (150-450); RBC Distribution Width CV 13.8 % (11.6-14.6); RBC Distribution Width SD 46.5 fl (35.1-43.9); Red Blood Count 4.11 M/mm3 (4.2-5.4); White Blood Count 8.4 K/mm3 (4.4-11.0)
[2020-11-04] MEDS: Morphine 4 MG/ML Syringe IV (10:46)
[2020-11-04] MEDS: Ondansetron 4 MG/2 ML Vial IV (10:46)
[2020-11-04 10:55] LABS: Anion Gap 9 (5-15); BUN 19 mg/dL (7-18); Calcium,Total 8.9 mg/dL (8.5-10.1); Chloride 104 mmol/L (98-107); Creatinine, Serum 0.86 mg/dL (0.55-1.02); EST Glomerular Filtration Rate 70 mL/min (>60); Est Glom Filt Rate - Afr Amer 85 mL/min (>60); Estimated Creatinine Clearance 58.68 ml/min; Glucose 184 mg/dL (74-106); Potassium 4.2 mmol/L (3.5-5.1); Sodium Level 134 mmol/L (136-145)
[2020-11-04 11:19] VITALS: BP 136/64; PULSE 59; RESP 12; O2SAT 95
[2020-11-04 11:58] LABS: Troponin-I HS 11.3 pg/mL (3.0-53.7)
[2020-11-04 12:08] VITALS: BP 129/54; PULSE 54; RESP 16; O2SAT 96
[2020-11-04 12:25] VITALS: BP 129/54; PULSE 62; RESP 16; O2SAT 96
== END 2020-11-04 12:35 | disposition home or self-care (01) ==
PROVIDERS: Emergency Provider Emergency Medicine; PCP Internal Medicine
DX: R07.9 Chest pain, unspecified (principal); F17.210 Nicotine dependence, cigarettes, uncomplicated; I25.2 Old myocardial infarction; E11.9 Type 2 diabetes mellitus without complications; E78.00 Pure hypercholesterolemia, unspecified; I11.0 Hypertensive heart disease with heart failure; I50.22 Chronic systolic (congestive) heart failure; I25.10 Atherosclerotic heart disease of native coronary artery without angina pectoris; J44.9 Chronic obstructive pulmonary disease, unspecified; Z79.84 Long term (current) use of oral hypoglycemic drugs; Z79.899 Other long term (current) drug therapy
CPT/HCPCS: 36415; 71045; 80048; 84484; 85025; 93005; 96374; 96375; 99285; A4216; J2405

== ENCOUNTER 2020-11-07 15:23 | Emergency (ER) | payer MEDICARE, MEDICAID, SELFPAY ==
[2016-07-13 11:45] VITALS: BMI 31.4
[2020-11-07 15:25] VITALS: BP 187/91; PULSE 89; RESP 16; TEMP 36; O2SAT 96; BMI 29.9
--- NOTE | 2020-11-07 16:03 | EDS_ITS ---
HPI HPI - GI History of Present Illness Chief Complaint: GI Bleed Informant: patient Abdominal Pain/Flank Pain Onset: Weeks (2 or so) Context: Gradual Onset Quality: Aching Location: Epigastric Current Severity: Moderate Maximum Severity: Moderate Worsened by: Nothing Relieved by: - (Temporary relief with Tylenol, ibuprofen, Bentyl but not today) Nausea/Vomiting/Emesis GI Symptom: Positive for Nausea and Vomiting Onset: Today Quality: Positive for Hematemesis Episodes: 2 Diarrhea/Melena/Hematochezia GI Symptom: Positive for Diarrhea; Negative for Melena and Hematochezia Onset: Weeks (2) Associated Symptoms Associated Symptoms: Positive for - (Parmer urine upon urinating here in the emergency department); Negative for Dysuria, Frequency and Urgency Narrative Narrative: Patient presents with upper abdominal pain has been worsening over the past couple weeks, today she was nauseated and vomited blood up twice. She states she vomited into the toilet, and it was enough to color the water red. She has had no melena or bright red blood per rectum. She is on aspirin clopidogrel, no anticoagulants. She takes pantoprazole and sucralfate, she has been on them chronically and continuing to do so for peptic ulcer disease. She follows with Dr. Jiménez with GI. She denies any chest pain today although she has had recurrent episodes of it within the last couple weeks, denies any syncope or presyncope or significant generalized weakness. 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 Cervical spinal stenosis Chronic systolic (congestive) heart failure COPD (chronic obstructive pulmonary disease) Diabetes mellitus type 2 in nonobese Essential (primary) hypertension History of ST elevation myocardial infarction (STEMI) IBS (irritable bowel syndrome) Irritable bowel syndrome with diarrhea Ischemic cardiomyopathy Left ventricular hypertrophy Major depression Multiple sclerosis Nicotine abuse BRYAN (obstructive sleep apnea) Pain of right lower extremity Paroxysmal atrial fibrillation RLS (restless legs syndrome) Suicidal ideation Tachycardia Takotsubo syndrome Vitamin B12 deficiency Home Medications albuterol sulfate 2 puff INHALATION Q6H PRN PRN 10/23/17 [History Last Taken 06/08/19] ropinirole 0.5 mg tablet 1 mg PO QHS tablet 08/21/19 [History Last Taken 08/13/20] conj estrog-medroxyprogest raquel 1 tablet PO DAILY 09/20/19 [History Last Taken 08/14/20 09:00] teriflunomide 14 mg PO DAILY 09/20/19 [History Last Taken 08/14/20 09:00] modafinil 200 mg PO DAILY 12/12/19 [History Last Taken 08/14/20 09:00] pioglitazone 30 mg PO DAILY 12/25/19 [History Last Taken 12/25/19 21:00] ropinirole 1 mg PO LUNCH 12/25/19 [History Last Taken 08/14/20 13:00] dicyclomine 20 mg tablet 20 mg PO BID PRN #180 tablet 03/15/20 [Rx Last Taken 08/14/20 13:00] acetaminophen 1,000 mg PO TID PRN #1 tablet 07/29/20 [Rx Last Taken Unknown] blood sugar diagnostic #100 each 08/10/20 [Rx Last Taken Unknown] blood-glucose meter #1 each 08/10/20 [Rx Last Taken Unknown] ascorbic acid (vitamin C) 500 mg PO DAILY #30 tab.chew 08/17/20 [Rx Last Taken Unknown] ferrous sulfate 325 mg PO DAILY #30 tablet 08/17/20 [Rx Last Taken Unknown] glimepiride 4 mg PO BID #0 08/17/20 [Rx Last Taken 08/14/20 09:00] atorvastatin 40 mg tablet 40 mg PO DAILY #30 tab 09/18/20 [Rx Last Taken Unknown] cholecalciferol (vitamin D3) 25 mcg (1,000 unit) capsule 50 mcg PO DAILY cap 09/18/20 [History Last Taken Unknown] lisinopril 2.5 mg tablet 5 mg PO DAILY #30 tablet 09/18/20 [Rx Last Taken Unknown] mirabegron 25 mg tablet,extended release 24 hr 100 mg PO Q24H tab 09/18/20 [History Last Taken Unknown] nitroglycerin 0.4 mg sublingual tablet 0.4 mg SL ONCE #25 tablet 09/18/20 [Rx Last Taken Unknown] ondansetron 4 mg disintegrating tablet 4 mg PO Q8H PRN PRN #30 tab 09/18/20 [Rx Last Taken Unknown] pantoprazole 40 mg tablet,delayed release 40 mg PO DAILY #30 tablet 09/18/20 [Rx Last Taken Unknown] potassium chloride 20 mEq tablet,extended release 20 meq PO DAILY 09/18/20 [History Last Taken Unknown] sucralfate 1 gram tablet 1 g PO 4X/DAY #120 tablet 09/18/20 [Rx Last Taken Unknown] trazodone 50 mg tablet 50 mg PO QHS PRN #30 tablet 09/18/20 [Rx Last Taken Unknown] acidophilus-pectin, citrus 1 cap PO DAILY 09/23/20 [History Last Taken Unknown] duloxetine [Cymbalta] 30 mg PO BID 09/23/20 [History Last Taken Unknown] donepezil 10 mg tablet 20 mg PO DAILY #180 tab 10/02/20 [Rx Last Taken Unknown] isosorbide mononitrate 30 mg tablet,extended release 24 hr 30 mg PO BID #60 tab 10/08/20 [Rx Last Taken Unknown] hydroxyzine HCl 50 mg tablet 50 mg PO TID #90 tab 10/19/20 [Rx Last Taken Unknown] carvedilol 12.5 mg tablet 12.5 mg PO BID #60 tab 11/07/20 [Rx Last Taken Unknown] promethazine 25 mg PO Q6H PRN PRN #10 tablet 11/07/20 [Rx Last Taken Unknown] Allergy/AdvReac Type Severity Reaction Status Date / Time indomethacin [From Indocin] Allergy Hives Verified 11/04/20 09:28 indomethacin sodium Allergy Hives Verified 11/04/20 09:28 [From Indocin] iodine Allergy Hives Verified 11/04/20 09:28 propoxyphene napsylate Allergy Out of Verified 11/04/20 09:28 [From Darvocet-N] control aripiprazole [From Abilify] AdvReac Other Verified 11/04/20 09:28 aspirin AdvReac Upset Verified 11/04/20 09:28 Stomach clindamycin AdvReac Nausea Verified 11/04/20 09:28 metformin AdvReac Other Verified 11/04/20 09:28 sumatriptan [From Imitrex] AdvReac Vomiting Verified 11/04/20 09:28 Family History Father Cancer Lung cancer Mother Cancer Pancreatic cancer Surgical History History of amputation of left great toe History of back surgery History of cervical discectomy History of coronary artery stent placement (04/08/16) History of left heart catheterization (09/25/20) History of left knee surgery History of loop recorder (06/2014) History of tonsillectomy and adenoidectomy Social History household members: none Smoking Status: Current every day smoker tobacco type: cigarettes alcohol intake: never substance use type: does not use caffeine: Yes Type: coffee Number of servings: 1 what type of physical activity do you participate in: none and other details: Physical Therapy ROS ROS ED Constitutional Constitutional ED: Denies chills or fever(s) Eyes Eyes: Denies change in vision or diplopia ENT ENT ED: Denies rhinorrhea or sore throat Cardiovascular Cardiovascular: Denies chest pain or palpitations Respiratory/Chest Respiratory/Chest: Denies cough or dyspnea Gastrointestinal Gastrointestinal: Reports as per HPI, abdominal pain, diarrhea, hematemesis, nausea and vomiting; Denies hematochezia or melena Genitourinary Genitourinary ED: Reports as per HPI; Denies dysuria or hematuria Musculoskeletal Musculoskeletal: Denies back pain or neck pain Integumentary Denies abscess or rash Neurologic Neurologic: Denies headache(s), paresthesias or weakness Psychiatric Psychiatric: Denies anxiety or suicidal thoughts EXAM Physical Exam Const Vital Signs: 11/07/20 15:25 11/07/20 16:29 Temperature 96.8 F L Temperature Source Oral Pulse Rate 89 65 Respiratory Rate 16 18 Blood Pressure 187/91 H 157/64 H Blood Pressure Mean 123 95 Pulse Ox 96 96 Oxygen Delivery Method Room Air Room Air Positive well nourished and well developed Constitutional Narrative: Well-appearing, ambulatory, conversive in full sentences in no distress General Appearance ED: well developed and NAD HEENT Reports moist mucous membranes normocephalic and atraumatic Eyes PERRL and EOMs intact bilaterally Neck full ROM and supple Resp normal respiratory effort and clear to auscultation bilaterally Cardio regular rate, regular rhythm and no murmurs Rate: Negative for tachycardic GI non-tender and non-distended Auscultation: normoactive bowel sounds Palpation: soft Back/Spine no CVA tenderness General Back: other FROM Extremity normal to inspection General Extremety ED: Negative for edema, pulses abnormal or tenderness General Extremity: Negative for edema or pulses abnormal Neuro oriented x3, CN's II-XII intact bilaterally and no sensory deficits noted Sensorium / Orientation: awake and alert Motor Exam: strength 5/5 throughout Skin no rashes or lesions noted and no wounds MDM MDM MDM Narrative Medical decision making narrative: Patient's hemoglobin is stable and actually higher than her previous interpretation at 11.7. Her bicarb is a little low at 18, I suspect this is a nonanion gap metabolic acidosis due to her diarrhea. She was treated here with IV fluids, Zofran, GI cocktail. Her nausea is better, it did not help the pain however. She was given a dose of morphine. She appears very comfortable. I discussed with Dr. So for your brick yard hand, he agrees that since she has had a stent that was last placed several years ago and recently had a heart cath that showed no acute findings, that it would be reasonable to discontinue her clopidogrel for good at this time. I discussed with her rn support services Dr. Jiménez who advised also discontinuing her aspirin for the next 5 days, and suggested that she may have a small Albertina- Velasco tear and agrees with her being discharged home and continuing her other GI medications as she has. She will follow-up with him. We discussed reasons to return. Also of note, her urine is orange for unknown reasons but she has had no urinary symptoms. It showed positive nitrite but I suspect this might be a false positive due to the orange discoloration. She states she recently took an Azo at home with cranberry which may be artificially discoloring her urine. It was sent for culture and if positive, then she can be started on antibiotic but I do not think she needs one now since she is asymptomatic. Lab Data Attestation: I reviewed the patient's lab results. Labs: Laboratory Results - last 24 hr 11/07/20 11/07/20 11/07/20 15:28 15:28 16:00 WBC 7.4 RBC 4.19 L Hgb 11.7 L Hct 37.9 MCV 90.5 MCH 27.9 MCHC 30.9 L RDW Std Deviation 45.8 H RDW Coeff of [place] 13.9 Plt Count 269 MPV 9.5 Immature Gran % (Auto) 0.800 Neut % (Auto) 69.6 Lymph % (Auto) 17.1 L Angelina % (Auto) 7.8 Eos % (Auto) 3.5 Baso % (Auto) 1.2 H Absolute Neuts (auto) 5.2 Absolute Lymphs (auto) 1.27 Nucleated RBC % 0 Sodium 134 L Potassium 4.2 Chloride 109 H Carbon Dioxide 18.0 L Anion Gap 7 BUN 21 H Creatinine 0.76 Estim Creat Clear Calc 66.41 Est GFR (MDRD) Af Amer 98 Est GFR (MDRD) Non-Af 81 BUN/Creatinine Ratio 27.7 H Glucose 179 H Calcium 9.0 Total Bilirubin 0.30 AST 16 ALT 17 Alkaline Phosphatase 95 Total Protein 6.3 L Albumin 2.9 L Globulin 3.4 Albumin/Globulin Ratio 0.9 Lipase 158 Urine Color Yellow Urine Clarity Clear Urine pH 6.0 Ur Specific [place] 1.010 Urine Protein 15 H Urine Glucose (UA) Normal Urine Ketones Negative Urine Occult Blood Negative Urine Nitrite Positive H Urine Bilirubin 3 H Urine Urobilinogen 4 H Ur Leukocyte Esterase 25 H Discharge Plan Triage Chief Complaint: GI Bleed ED Provider: Yuval Luciano Dx/Rx/DC Orders Clinical Impression: Hematemesis, History of peptic ulcer disease, Upper abdominal pain Instructions: ED Upper GI Bleeding (Stable) Prescriptions: New promethazine [promethazine] 25 MG tablet 25 mg PO Q6H PRN PRN (Reason: Nausea) Qty: 10 RF: 0 Continued ropinirole [Requip] 0.5 mg tablet 1 mg PO QHS RF: 0 dicyclomine 20 mg tablet 20 mg PO BID PRN (Reason: abdominal discomfort) Qty: 180 RF: 2 potassium chloride 20 mEq tablet extended release 20 meq PO DAILY RF: 0 Myrbetriq 25 mg tablet extended release 24 hr 100 mg PO Q24H RF: 0 cholecalciferol (vitamin D3) 25 mcg (1,000 unit) capsule 50 mcg PO DAILY RF: 0 trazodone 50 mg tablet 50 mg PO QHS PRN (Reason: insomnia) Qty: 30 RF: 1 nitroglycerin 0.4 mg tablet, sublingual 0.4 mg SL ONCE Qty: 25 RF: 3 isosorbide mononitrate 30 mg tablet extended release 24 hr 30 mg PO BID Qty: 60 RF: 11 donepezil [Aricept] 10 mg tablet 20 mg PO DAILY Qty: 180 RF: 1 albuterol sulfate 1 INHALER inhaler 2 puff INHALATION Q6H PRN PRN (Reason: Sob &/Or Wheezing) RF: 0 conj estrog-medroxyprogest raquel 1 TAB tablet 1 tablet PO DAILY RF: 0 teriflunomide 14 mg tablet 14 mg PO DAILY RF: 0 modafinil 200 MG tablet 200 mg PO DAILY RF: 0 ropinirole 1 MG tablet 1 mg PO LUNCH RF: 0 pioglitazone 30 MG tablet 30 mg PO DAILY RF: 0 acetaminophen 500 MG tablet 1,000 mg PO TID PRN (Reason: pain -02/03) Qty: 1 RF: 0 ferrous sulfate 325 MG tablet 325 mg PO DAILY Qty: 30 RF: 2 ascorbic acid (vitamin C) 500 MG tablet,chewable 500 mg PO DAILY Qty: 30 RF: 0 glimepiride 4 MG tablet 4 mg PO BID Qty: 0 RF: 0 duloxetine [Cymbalta] 30 mg capsule,delayed release(DR/EC) 30 mg PO BID RF: 0 acidophilus-pectin, citrus 100 million cell-10 mg Capsule 1 cap PO DAILY RF: 0 (DME) blood-glucose meter [Accu-Chek Ada Plus Meter] Misc See Rx Instructions .ROUTE .MEDSUPPLY Qty: 1 RF: 0 (DME) Accu-Chek Ada Plus test strp Strip See Rx Instructions .ROUTE .MEDSUPPLY Qty: 100 RF: 3 lisinopril 2.5 mg tablet 5 mg PO DAILY Qty: 30 RF: 11 pantoprazole 40 mg tablet,delayed release (DR/EC) 40 mg PO DAILY Qty: 30 RF: 11 atorvastatin 40 mg tablet 40 mg PO DAILY Qty: 30 RF: 11 sucralfate 1 gram tablet 1 g PO 4X/DAY Qty: 120 RF: 1 ondansetron 4 mg tablet,disintegrating 4 mg PO Q8H PRN PRN (Reason: Nausea) Qty: 30 RF: 3 hydroxyzine HCl 50 mg tablet 50 mg PO TID Qty: 90 RF: 0 carvedilol 12.5 mg tablet 12.5 mg PO BID Qty: 60 RF: 1 Discontinued aspirin 81 MG tablet 81 mg PO DAILY RF: 0 clopidogrel 75 mg tablet 75 mg PO DAILY Qty: 90 RF: 3 Primary Care Provider: Tom Sherman Referrals: Tom Sherman MD [Primary Care Provider] - Aureliano Jiménez MD [NON-STAFF] - (within next week; call for appt) Activity Restrictions/Additional Instructions: You may resume your baby aspirin next Thursday, November 13. You are stopping your clopidogrel for good at this time per your brick yard hand. Disposition Disposition: Home, Self Care
[2020-11-07 16:18] LABS: Absolute Lymphocyte Count 1.27 X10^3/uL (0.83-4.51); Absolute Neutrophil Count 5.2 X10^3/uL (2.0-7.7); Basophil# 0.09 X10^3/uL; Basophil% 1.2 % (0-1); Eosinophil# 0.26 X10^3/uL; Eosinophils% 3.5 % (0-5); Hematocrit 37.9 % (37-47); Hemoglobin 11.7 g/dL (12.0-15.0); Lymphocyte # 1.27 X10^3/ul (0.83-4.51); Lymphocyte % 17.1 % (19-41); Mean Corp Hgb Conc 30.9 g/dL (32-36); Mean Corpuscular Hgb 27.9 pg (27.0-32.0); Mean Corpuscular Volume 90.5 fL (81-99); Mean Platelet Vol. 9.5 fl (6.2-12.0); Monocyte# 0.58 X10^3/uL; Monocyte% 7.8 % (0-10); NRBC Flagged by Analyzer 0 % (0-5); Neutrophil # 5.17 X10^3/uL (2.7-7.7); Neutrophil % 69.6 % (47-70); Platelet Count 269 K/mm3 (150-450); RBC Distribution Width CV 13.9 % (11.6-14.6); RBC Distribution Width SD 45.8 fl (35.1-43.9); Red Blood Count 4.19 M/mm3 (4.2-5.4); White Blood Count 7.4 K/mm3 (4.4-11.0)
[2020-11-07 16:24] LABS: ALB/GLOB Ratio 0.9 RATIO (0.9-2.4); AST(SGOT) 16 U/L (15-37); Alanine Aminotransfer ALT/SGPT 17 U/L (13-56); Albumin, Serum 2.9 g/dL (3.2-5.0); Alkaline Phosphatase 95 U/L (45-117); Anion Gap 7 (5-15); BUN 21 mg/dL (7-18); BUN/Creat Ratio 27.7 RATIO (10-20); Chloride 109 mmol/L (98-107); Creatinine, Serum 0.76 mg/dL (0.55-1.02); EST Glomerular Filtration Rate 81 mL/min (>60); Est Glom Filt Rate - Afr Amer 98 mL/min (>60); Estimated Creatinine Clearance 66.41 ml/min; Globulin 3.4 g/dL (2.2-4.2); Glucose 179 mg/dL (74-106); Lipase 158 U/L (73-393); Potassium 4.2 mmol/L (3.5-5.1); Protein, Total 6.3 g/dL (6.4-8.2); Sodium Level 134 mmol/L (136-145)
[2020-11-07] MEDS: Mag Hydrox/Al Hydrox/Simeth 30 ML UDC PO (16:27)
[2020-11-07] MEDS: Ondansetron 4 MG/2 ML Vial IV (16:28)
[2020-11-07 16:29] VITALS: BP 157/64; PULSE 65; RESP 18; O2SAT 96
[2020-11-07 16:35] LABS: Mucous, Urine 0 SEEN /hpf (<or=2+); Red Blood Cells-Urine 0 SEEN /hpf (0-5)
[2020-11-07 16:45] LABS: Color, Urine Yellow (Yellow); Glucose, Dipstick Normal (Normal); Ketone-Dipstick Negative (Negative); Leukocyte Esterase-Dipstick 25 /ul (Negative); Nitrite-Dipstick Positive (Negative); Occult Blood-Urine Negative /ul (Negative); Protein-Dipstick 15 mg/dl (Negative); Urine Clarity Clear (Clear); Urine Urobilinogen 4 mg/dl (Normal)
[2020-11-07 16:49] LABS: Urine Bilirubin Dipstick 3 mg/dL (Negative)
[2020-11-07 17:09] LABS: Bacteria 1+ /hpf (None Seen); Squamous Epithelial Cells - UA 0-5 SEEN /hpf (5-10); White Blood Cells 0-5 SEEN /hpf (0-5)
[2020-11-07] MEDS: Morphine 4 MG/ML Syringe IV (17:13)
[2020-11-07 17:17] VITALS: BP 131/77; PULSE 76; RESP 15; O2SAT 96
== END 2020-11-07 17:18 | disposition home or self-care (01) ==
PROVIDERS: Emergency Provider Emergency Medicine; PCP Internal Medicine
DX: K92.0 Hematemesis (principal); I25.10 Atherosclerotic heart disease of native coronary artery without angina pectoris; I11.0 Hypertensive heart disease with heart failure; I50.22 Chronic systolic (congestive) heart failure; I48.0 Paroxysmal atrial fibrillation; I25.5 Ischemic cardiomyopathy; I25.2 Old myocardial infarction; J44.9 Chronic obstructive pulmonary disease, unspecified; E11.9 Type 2 diabetes mellitus without complications; E53.8 Deficiency of other specified B group vitamins; K58.0 Irritable bowel syndrome with diarrhea; G35 Multiple sclerosis; G25.81 Restless legs syndrome; F32.9 Major depressive disorder, single episode, unspecified; F41.9 Anxiety disorder, unspecified; F17.210 Nicotine dependence, cigarettes, uncomplicated; Z79.84 Long term (current) use of oral hypoglycemic drugs; Z79.82 Long term (current) use of aspirin; Z79.02 Long term (current) use of 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/antiplatelets; Z79.899 Other long term (current) drug therapy; Z87.11 Personal history of peptic ulcer disease
CPT/HCPCS: 80053; 81001; 83690; 85025; 87086; 87088; 96374; 96375; 99285; J7040; A4216; J2405

== ENCOUNTER 2020-11-12 08:21 | Emergency (ER) | payer MEDICARE, MEDICAID, SELFPAY ==
[2016-07-13 11:45] VITALS: BMI 31.4
[2020-11-12 08:22] VITALS: BP 141/68; PULSE 71; RESP 16; TEMP 36.4; O2SAT 97; BMI 29.7
[2020-11-12 08:25] VITALS: BP 141/68; PULSE 70; RESP 16; TEMP 36.4; O2SAT 98
--- NOTE | 2020-11-12 09:20 | EDS_ITS ---
HPI History of Present Illness Chief Complaint: General Illness Narrative Narrative: Patient presenting secondary to abdominal pain nausea vomiting diarrhea. Patient states that for a prolonged period of time, but worse in the last 2 weeks she has been dealing with nausea vomiting and diarrhea. She reports that it is loose and watery nonbloody nonmucousy. States that she saw GI about 2 weeks ago was started on medication to help decrease the diarrhea and it actually made it worse. Patient also states that she has been dealing with a couple episodes per day of nonbloody nonbilious emesis. She states that she will get crampy abdominal pain associated with this. No fevers, no sick contacts. No recent travel or surgery. Patient is currently on Keflex for urinary tract infection, but the diarrhea preceded this. No sick contacts. Review of systems otherwise negative. 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 Cervical spinal stenosis Chronic systolic (congestive) heart failure COPD (chronic obstructive pulmonary disease) Diabetes mellitus type 2 in nonobese Essential (primary) hypertension History of ST elevation myocardial infarction (STEMI) IBS (irritable bowel syndrome) Irritable bowel syndrome with diarrhea Ischemic cardiomyopathy Left ventricular hypertrophy Major depression Multiple sclerosis Nicotine abuse BRYAN (obstructive sleep apnea) Pain of right lower extremity Paroxysmal atrial fibrillation RLS (restless legs syndrome) Suicidal ideation Tachycardia Takotsubo syndrome Vitamin B12 deficiency Home Medications albuterol sulfate 2 puff INHALATION Q6H PRN PRN 10/23/17 [History Last Taken 06/08/19] ropinirole 0.5 mg tablet 1 mg PO QHS tablet 08/21/19 [History Last Taken 08/13/20] conj estrog-medroxyprogest raquel 1 tablet PO DAILY 09/20/19 [History Last Taken 08/14/20 09:00] teriflunomide 14 mg PO DAILY 09/20/19 [History Last Taken 08/14/20 09:00] modafinil 200 mg PO DAILY 12/12/19 [History Last Taken 08/14/20 09:00] pioglitazone 30 mg PO DAILY 12/25/19 [History Last Taken 12/25/19 21:00] ropinirole 1 mg PO LUNCH 12/25/19 [History Last Taken 08/14/20 13:00] dicyclomine 20 mg tablet 20 mg PO BID PRN #180 tablet 03/15/20 [Rx Last Taken 08/14/20 13:00] acetaminophen 1,000 mg PO TID PRN #1 tablet 07/29/20 [Rx Last Taken Unknown] blood sugar diagnostic #100 each 08/10/20 [Rx Last Taken Unknown] blood-glucose meter #1 each 08/10/20 [Rx Last Taken Unknown] ascorbic acid (vitamin C) 500 mg PO DAILY #30 tab.chew 08/17/20 [Rx Last Taken Unknown] ferrous sulfate 325 mg PO DAILY #30 tablet 08/17/20 [Rx Last Taken Unknown] glimepiride 4 mg PO BID #0 08/17/20 [Rx Last Taken 08/14/20 09:00] atorvastatin 40 mg tablet 40 mg PO DAILY #30 tab 09/18/20 [Rx Last Taken Unknown] cholecalciferol (vitamin D3) 25 mcg (1,000 unit) capsule 50 mcg PO DAILY cap 09/18/20 [History Last Taken Unknown] lisinopril 2.5 mg tablet 5 mg PO DAILY #30 tablet 09/18/20 [Rx Last Taken Unknown] mirabegron 25 mg tablet,extended release 24 hr 100 mg PO Q24H tab 09/18/20 [History Last Taken Unknown] nitroglycerin 0.4 mg sublingual tablet 0.4 mg SL ONCE #25 tablet 09/18/20 [Rx Last Taken Unknown] ondansetron 4 mg disintegrating tablet 4 mg PO Q8H PRN PRN #30 tab 09/18/20 [Rx Last Taken Unknown] pantoprazole 40 mg tablet,delayed release 40 mg PO DAILY #30 tablet 09/18/20 [Rx Last Taken Unknown] potassium chloride 20 mEq tablet,extended release 20 meq PO DAILY 09/18/20 [History Last Taken Unknown] sucralfate 1 gram tablet 1 g PO 4X/DAY #120 tablet 09/18/20 [Rx Last Taken Unknown] trazodone 50 mg tablet 50 mg PO QHS PRN #30 tablet 09/18/20 [Rx Last Taken Unknown] acidophilus-pectin, citrus 1 cap PO DAILY 09/23/20 [History Last Taken Unknown] duloxetine [Cymbalta] 30 mg PO BID 09/23/20 [History Last Taken Unknown] donepezil 10 mg tablet 20 mg PO DAILY #180 tab 10/02/20 [Rx Last Taken Unknown] isosorbide mononitrate 30 mg tablet,extended release 24 hr 30 mg PO BID #60 tab 10/08/20 [Rx Last Taken Unknown] hydroxyzine HCl 50 mg tablet 50 mg PO TID #90 tab 10/19/20 [Rx Last Taken Unknown] promethazine 25 mg PO Q6H PRN PRN #10 tablet 11/07/20 [Rx Last Taken Unknown] carvedilol 12.5 mg tablet 12.5 mg PO BID #60 tab 11/08/20 [Rx Last Taken Unknown] diclofenac potassium 50 mg PO BID #20 tab 11/12/20 [Rx Last Taken Unknown] ondansetron 8 mg PO Q8H PRN PRN #20 tab 11/12/20 [Rx Last Taken Unknown] Allergy/AdvReac Type Severity Reaction Status Date / Time indomethacin [From Indocin] Allergy Hives Verified 11/12/20 08:30 indomethacin sodium Allergy Hives Verified 11/12/20 08:30 [From Indocin] iodine Allergy Hives Verified 11/12/20 08:30 propoxyphene napsylate Allergy Out of Verified 11/12/20 08:30 [From Darvocet-N] control aripiprazole [From Abilify] AdvReac Other Verified 11/12/20 08:30 aspirin AdvReac Upset Verified 11/12/20 08:30 Stomach clindamycin AdvReac Nausea Verified 11/12/20 08:30 metformin AdvReac Other Verified 11/12/20 08:30 sumatriptan [From Imitrex] AdvReac Vomiting Verified 11/12/20 08:30 Family History Father Cancer Lung cancer Mother Cancer Pancreatic cancer Surgical History History of amputation of left great toe History of back surgery History of cervical discectomy History of coronary artery stent placement (04/08/16) History of left heart catheterization (09/25/20) History of left knee surgery History of loop recorder (06/2014) History of tonsillectomy and adenoidectomy Social History household members: none Smoking Status: Current every day smoker tobacco type: cigarettes alcohol intake: never substance use type: does not use caffeine: Yes Type: coffee Number of servings: 1 what type of physical activity do you participate in: none and other details: Physical Therapy ROS ROS ED Constitutional Constitutional ED: Denies chills or fever(s) ENT ENT ED: Denies rhinorrhea Cardiovascular Cardiovascular: Denies chest pain Respiratory/Chest Respiratory/Chest: Denies cough or dyspnea Gastrointestinal Gastrointestinal: Reports abdominal pain, diarrhea, nausea and vomiting Genitourinary Genitourinary ED: Denies dysuria or hematuria Musculoskeletal Musculoskeletal: Denies back pain Integumentary Denies rash Neurologic Neurologic: Denies paresthesias or weakness Psychiatric Psychiatric: Denies depression Endocrine Endocrinology: Denies fatigue Allergic/Immunologic Allergic/Immunologic ED: Denies urticaria EXAM Physical Exam Const Vital Signs: 11/12/20 08:22 11/12/20 08:25 11/12/20 08:28 Temperature 97.6 F L 97.6 F L Temperature Source Temporal Temporal Pulse Rate 71 70 Respiratory Rate 16 16 Respiratory Effort Normal Respiratory Pattern Normal Blood Pressure 141/68 H 141/68 H Blood Pressure Mean 92 92 Pulse Ox 97 98 Oxygen Delivery Method Room Air Room Air Positive well nourished and well developed General Appearance ED: well developed and NAD HEENT Reports moist mucous membranes Negative for trauma or tenderness Eyes EOMs intact bilaterally Neck no lymphadenopathy, supple and no JVD Chest Wall inspection of chest normal Resp normal respiratory effort and clear to auscultation bilaterally Cardio regular rate, regular rhythm, no murmurs and peripheral pulses 2+ throughout GI normal to inspection, nondistended, normoactive bowel sounds and no masses GI Narrative: Patient complains of abdominal tenderness but when palpated with the stethoscope she has no reproducible tenderness on palpation Palpation: soft Back/Spine normal to inspection Extremity normal to inspection General Extremety ED: Negative for tenderness Neuro oriented x3 and no sensory deficits noted Sensorium / Orientation: alert Motor Exam: strength 5/5 throughout Psych mental status grossly normal Skin no rashes or lesions noted MDM MDM MDM Narrative Medical decision making narrative: Patient presents with complaints of chronic vomiting and diarrhea that was worsened over the course of the last 2 weeks. Clinically the patient does not really seem dehydrated, she is not tachycardic toxic appearing or have significantly dry mucous membranes. I initially did order an IV with some fluids and IV medications but IV was difficult to obtain so the patient was given oral Zofran and IM Toradol. Laboratory work-up shows a normal white blood cell count, no evidence of acute kidney injury or electrolyte derangements with a normal hepatic panel. This would seem unlikely for the patient to have C. difficile with normal labs and normal chemistries. Repeat evaluation at 1055 the patient has some symptomatic improvement. I did order a stool sample on the patient she was unable to provide us with that, I believe that she safely can be discharged. She will be sent home with a course of Zofran and Toradol for symptom control she will follow-up with GI. Lab Data Labs: Laboratory Results - last 24 hr 11/12/20 11/12/20 10:14 10:14 WBC 9.8 RBC 4.29 Hgb 11.9 L Hct 38.6 MCV 90.0 MCH 27.7 MCHC 30.8 L RDW Std Deviation 46.8 H RDW Coeff of [place] 14.4 Plt Count 309 MPV 9.1 Immature Gran % (Auto) 0.300 Neut % (Auto) 71.4 H Lymph % (Auto) 15.9 L [place] % (Auto) 8.1 Eos % (Auto) 3.2 Baso % (Auto) 1.1 H Absolute Neuts (auto) 7.0 Absolute Lymphs (auto) 1.56 Nucleated RBC % 0 Sodium 133 L Potassium 4.0 Chloride 105 Carbon Dioxide 24.0 Anion Gap 4 L BUN 16 Creatinine 0.87 Estim Creat Clear Calc 58.01 Est GFR (MDRD) Af Amer 84 Est GFR (MDRD) Non-Af 70 BUN/Creatinine Ratio 18.5 Glucose 155 H Calcium 9.6 Total Bilirubin 0.40 AST 13 L ALT 14 Alkaline Phosphatase 103 Total Protein 6.4 Albumin 2.8 L Globulin 3.6 Albumin/Globulin Ratio 0.8 L Discharge Plan Triage Chief Complaint: General Illness ED Provider: Navdeep Martinez Dx/Rx/DC Orders Clinical Impression: Nausea vomiting and diarrhea Instructions: ED Diet for Vomiting or ... Prescriptions: New ondansetron 4 mg tablet,disintegrating 8 mg PO Q8H PRN PRN (Reason: Nausea) Qty: 20 RF: 0 diclofenac potassium 50 mg tablet 50 mg PO BID Qty: 20 RF: 0 No Action ropinirole [Requip] 0.5 mg tablet 1 mg PO QHS RF: 0 dicyclomine 20 mg tablet 20 mg PO BID PRN (Reason: abdominal discomfort) Qty: 180 RF: 2 potassium chloride 20 mEq tablet extended release 20 meq PO DAILY RF: 0 Myrbetriq 25 mg tablet extended release 24 hr 100 mg PO Q24H RF: 0 cholecalciferol (vitamin D3) 25 mcg (1,000 unit) capsule 50 mcg PO DAILY RF: 0 trazodone 50 mg tablet 50 mg PO QHS PRN (Reason: insomnia) Qty: 30 RF: 1 nitroglycerin 0.4 mg tablet, sublingual 0.4 mg SL ONCE Qty: 25 RF: 3 isosorbide mononitrate 30 mg tablet extended release 24 hr 30 mg PO BID Qty: 60 RF: 11 donepezil [Aricept] 10 mg tablet 20 mg PO DAILY Qty: 180 RF: 1 albuterol sulfate 1 INHALER inhaler 2 puff INHALATION Q6H PRN PRN (Reason: Sob &/Or Wheezing) RF: 0 conj estrog-medroxyprogest raquel 1 TAB tablet 1 tablet PO DAILY RF: 0 teriflunomide 14 mg tablet 14 mg PO DAILY RF: 0 modafinil 200 MG tablet 200 mg PO DAILY RF: 0 ropinirole 1 MG tablet 1 mg PO LUNCH RF: 0 pioglitazone 30 MG tablet 30 mg PO DAILY RF: 0 acetaminophen 500 MG tablet 1,000 mg PO TID PRN (Reason: pain -02/03) Qty: 1 RF: 0 ferrous sulfate 325 MG tablet 325 mg PO DAILY Qty: 30 RF: 2 ascorbic acid (vitamin C) 500 MG tablet,chewable 500 mg PO DAILY Qty: 30 RF: 0 glimepiride 4 MG tablet 4 mg PO BID Qty: 0 RF: 0 duloxetine [Cymbalta] 30 mg capsule,delayed release(DR/EC) 30 mg PO BID RF: 0 acidophilus-pectin, citrus 100 million cell-10 mg Capsule 1 cap PO DAILY RF: 0 promethazine [promethazine] 25 MG tablet 25 mg PO Q6H PRN PRN (Reason: Nausea) Qty: 10 RF: 0 (DME) blood-glucose meter [Accu-Chek Ada Plus Meter] Misc See Rx Instructions .ROUTE .MEDSUPPLY Qty: 1 RF: 0 (DME) Accu-Chek Ada Plus test strp Strip See Rx Instructions .ROUTE .MEDSUPPLY Qty: 100 RF: 3 lisinopril 2.5 mg tablet 5 mg PO DAILY Qty: 30 RF: 11 pantoprazole 40 mg tablet,delayed release (DR/EC) 40 mg PO DAILY Qty: 30 RF: 11 atorvastatin 40 mg tablet 40 mg PO DAILY Qty: 30 RF: 11 sucralfate 1 gram tablet 1 g PO 4X/DAY Qty: 120 RF: 1 ondansetron 4 mg tablet,disintegrating 4 mg PO Q8H PRN PRN (Reason: Nausea) Qty: 30 RF: 3 hydroxyzine HCl 50 mg tablet 50 mg PO TID Qty: 90 RF: 0 carvedilol 12.5 mg tablet 12.5 mg PO BID Qty: 60 RF: 1 Primary Care Provider: Tom Sherman Referrals: Tom Sherman MD [Primary Care Provider] - 3-5 Days Disposition Disposition: Home, Self Care
[2020-11-12] MEDS: Ketorolac 30 MG/ML Syringe IM (10:17)
[2020-11-12] MEDS: Ondansetron ODT 4 MG Tablet PO (10:17)
[2020-11-12 10:32] LABS: Absolute Lymphocyte Count 1.56 X10^3/uL (0.83-4.51); Basophil# 0.11 X10^3/uL; Basophil% 1.1 % (0-1); Eosinophil# 0.31 X10^3/uL; Eosinophils% 3.2 % (0-5); Hematocrit 38.6 % (37-47); Hemoglobin 11.9 g/dL (12.0-15.0); Lymphocyte # 1.56 X10^3/ul (0.83-4.51); Lymphocyte % 15.9 % (19-41); Mean Corp Hgb Conc 30.8 g/dL (32-36); Mean Corpuscular Hgb 27.7 pg (27.0-32.0); Mean Platelet Vol. 9.1 fl (6.2-12.0); Monocyte# 0.79 X10^3/uL; Monocyte% 8.1 % (0-10); NRBC Flagged by Analyzer 0 % (0-5); Neutrophil # 7.01 X10^3/uL (2.7-7.7); Neutrophil % 71.4 % (47-70); Platelet Count 309 K/mm3 (150-450); RBC Distribution Width CV 14.4 % (11.6-14.6); RBC Distribution Width SD 46.8 fl (35.1-43.9); Red Blood Count 4.29 M/mm3 (4.2-5.4); White Blood Count 9.8 K/mm3 (4.4-11.0)
--- NOTE | 2020-11-12 10:34 | ED.RN ---
THIS RN ATTEMPTED 2 IV INSERTIONS. ANOTHER RN ALSO ATTEMPTED 3. DR HOUSTON NOTIFIED AT THIS TIME. LAB TO OBTAIN BLOOD DRAW AND MEDICATIONS CHANGED.
[2020-11-12 10:46] LABS: ALB/GLOB Ratio 0.8 RATIO (0.9-2.4); AST(SGOT) 13 U/L (15-37); Alanine Aminotransfer ALT/SGPT 14 U/L (13-56); Albumin, Serum 2.8 g/dL (3.2-5.0); Alkaline Phosphatase 103 U/L (45-117); Anion Gap 4 (5-15); BUN 16 mg/dL (7-18); BUN/Creat Ratio 18.5 RATIO (10-20); Calcium,Total 9.6 mg/dL (8.5-10.1); Chloride 105 mmol/L (98-107); Creatinine, Serum 0.87 mg/dL (0.55-1.02); EST Glomerular Filtration Rate 70 mL/min (>60); Est Glom Filt Rate - Afr Amer 84 mL/min (>60); Estimated Creatinine Clearance 58.01 ml/min; Globulin 3.6 g/dL (2.2-4.2); Glucose 155 mg/dL (74-106); Protein, Total 6.4 g/dL (6.4-8.2); Sodium Level 133 mmol/L (136-145)
[2020-11-12 11:09] VITALS: BP 113/51; PULSE 67; RESP 14; O2SAT 97
== END 2020-11-12 11:09 | disposition home or self-care (01) ==
PROVIDERS: Emergency Provider Emergency Medicine; PCP Internal Medicine
DX: R11.2 Nausea with vomiting, unspecified (principal); R19.7 Diarrhea, unspecified; N39.0 Urinary tract infection, site not specified; I25.10 Atherosclerotic heart disease of native coronary artery without angina pectoris; I11.0 Hypertensive heart disease with heart failure; I50.22 Chronic systolic (congestive) heart failure; I25.2 Old myocardial infarction; J44.9 Chronic obstructive pulmonary disease, unspecified; E11.9 Type 2 diabetes mellitus without complications; I25.5 Ischemic cardiomyopathy; I48.0 Paroxysmal atrial fibrillation; E53.8 Deficiency of other specified B group vitamins; G35 Multiple sclerosis; K58.0 Irritable bowel syndrome with diarrhea; F32.9 Major depressive disorder, single episode, unspecified; F41.9 Anxiety disorder, unspecified; F17.210 Nicotine dependence, cigarettes, uncomplicated; Z79.82 Long term (current) use of aspirin; Z79.84 Long term (current) use of oral hypoglycemic drugs; Z79.899 Other long term (current) drug therapy
CPT/HCPCS: 80053; 85025; 96372; 99284

== ENCOUNTER 2020-11-17 09:52 | Emergency (ER) | payer MEDICARE, MEDICAID, SELFPAY ==
[2016-07-13 11:45] VITALS: BMI 31.4
[2020-11-17 09:52] VITALS: BP 155/89; PULSE 20; RESP 16; TEMP 36.5; O2SAT 95; BMI 27.7
--- NOTE | 2020-11-17 10:00 | CT_ITS ---
STUDY: CT ABDOMEN AND PELVIS WITHOUT CONTRAST REASON FOR EXAM: Female, 64 years old. Pain R flank RADIATION DOSAGE (If Supplied By Facility): CTDIvol = ( 11.36 ) mGy, DLP = ( 573.07 ) mGycm TECHNIQUE: Transaxial images were obtained from the dome of the diaphragm to the symphysis pubis without oral contrast, and without intravenous contrast. Sagittal and coronal images were reconstructed. Individualized dose optimization techniques were used for this CT. COMPARISON: None. FINDINGS: The visualized lung bases are unremarkable. The visualized portions of the heart are within normal limits. Normal liver. Normal gallbladder and extrahepatic biliary system. Normal spleen. Normal pancreas. Normal bilateral adrenal glands. Normal right kidney. Normal left kidney. Normal visualized stomach. Normal small intestine. Normal colon. The appendix is visualized and appears normal. There is diffuse atherosclerotic calcification of the abdominal aorta, without a demonstrated aneurysm. Normal inferior vena cava. Normal retroperitoneum. Normal urinary bladder. Normal abdominal wall. Normal osseous structures. CT/Abdomen/Pelvis without Cont IMPRESSION: No evidence of acute intra-abdominal process or focal inflammation. No evidence of nephrolithiasis or hydronephrosis. Electronically Signed: Bala Starkey DO at 10:42 EDT , Service support ,
--- NOTE | 2020-11-17 10:02 | EKG12_ITS ---
Test Reason : CP Blood Pressure : / mmHG Vent. Rate : 082 BPM Atrial Rate : 082 BPM P-R Int : 156 ms QRS Dur : 082 ms QT Int : 356 ms P-R-T Axes : 029 -52 075 degrees QTc Int : 415 ms Sinus rhythm with occasional Premature ventricular complexes Left axis deviation Inferior infarct , age undetermined Anterolateral infarct , age undetermined Abnormal ECG Confirmed by CATHERINE WITT, GRIS ([id number]), editorial clerk YUNG MUNGUIA ([id number]) on 11/20/2020 10:29:36 AM Referred By: JUWAN Confirmed By:GRIS ALEXANDER MD
--- NOTE | 2020-11-17 10:03 | RAD_ITS ---
STUDY: X-RAY CHEST REASON FOR EXAM: Female, 64 years old. chest pain TECHNIQUE: Single AP portable view of the chest. COMPARISON: 11/04/2020 FINDINGS: The lungs are clear and expanded. There is no demonstrated pleural abnormality. Normal size heart. Normal mediastinum and sara. Normal visualized pulmonary arteries. Normal visualized aortic arch and descending thoracic aorta. Normal visualized thoracic spine. Normal visualized ribs, clavicles, and shoulders. There is no demonstrated abnormality of the visualized soft tissue structures of the upper abdomen. RAD/Chest 1 View (Portable) IMPRESSION: No evidence of acute cardiopulmonary process. Electronically Signed: Bala Starkey DO at 10:43 EDT , Service support ,
--- NOTE | 2020-11-17 10:06 | ED.VIS.CHEST ---
HPI History of Present Illness Chief Complaint: Chest Pain Informant: patient and EMS Onset/Context/Timing Onset: Hours (5) Activity at onset: sudden, onset and sleep Timing: Continuous Quality: Positive for Aching and Sharp Location: Substernal (And abdomen) Current Severity: Moderate Maximum Severity: Moderate Worsened By: Nothing Relieved By: Nothing Associated Symptoms: Positive for Nausea; Negative for Vomiting, Diaphoresis, Dyspnea, Cough, Fever, Lightheadedness and Palpitations Narrative Narrative: This patient frequently seen in our emergency department presents waking up around 5 hours ago with epigastric discomfort that gradually became pain into her right flank and low back, up the middle of her chest that feels sharp and nonpleuritic, as well as urinary frequency and sharp burning dysuria. She states she feels like she has a UTI, she has urinated 5 times this morning since awakening with the symptoms, she denies hematuria, and she admits to a history of kidney stones in the past. She does have a history of coronary disease with a stent, as well as CHF, COPD, and A. fib/a flutter. [facility] Medical History Anxiety Apical mural thrombus with acute [place] Atherosclerotic heart disease of [place] coronary artery without angina pectoris Cervical spinal stenosis Chronic systolic (congestive) heart failure COPD (chronic obstructive pulmonary disease) Diabetes mellitus type 2 in nonobese Essential (primary) hypertension History of ST elevation myocardial infarction (STEMI) IBS (irritable bowel syndrome) Irritable bowel syndrome with diarrhea Ischemic cardiomyopathy Left ventricular hypertrophy Major depression Multiple sclerosis Nicotine abuse BRYAN (obstructive sleep apnea) Pain of right lower extremity Paroxysmal atrial fibrillation RLS (restless legs syndrome) Suicidal ideation Tachycardia Takotsubo syndrome Vitamin B12 deficiency Home Medications albuterol sulfate 2 puff INHALATION Q6H PRN PRN 10/23/17 [History Last Taken 06/08/19] ropinirole 0.5 mg tablet 1 mg PO QHS tablet 08/21/19 [History Last Taken 08/13/20] conj estrog-medroxyprogest raquel 1 tablet PO DAILY 09/20/19 [History Last Taken 08/14/20 09:00] teriflunomide 14 mg PO DAILY 09/20/19 [History Last Taken 08/14/20 09:00] modafinil 200 mg PO DAILY 12/12/19 [History Last Taken 08/14/20 09:00] pioglitazone 30 mg PO DAILY 12/25/19 [History Last Taken 12/25/19 21:00] ropinirole 1 mg PO LUNCH 12/25/19 [History Last Taken 08/14/20 13:00] dicyclomine 20 mg tablet 20 mg PO BID PRN #180 tablet 03/15/20 [Rx Last Taken 08/14/20 13:00] acetaminophen 1,000 mg PO TID PRN #1 tablet 07/29/20 [Rx Last Taken Unknown] blood sugar diagnostic #100 each 08/10/20 [Rx Last Taken Unknown] blood-glucose meter #1 each 08/10/20 [Rx Last Taken Unknown] ascorbic acid (vitamin C) 500 mg PO DAILY #30 tab.chew 08/17/20 [Rx Last Taken Unknown] ferrous sulfate 325 mg PO DAILY #30 tablet 08/17/20 [Rx Last Taken Unknown] glimepiride 4 mg PO BID #0 08/17/20 [Rx Last Taken 08/14/20 09:00] atorvastatin 40 mg tablet 40 mg PO DAILY #30 tab 09/18/20 [Rx Last Taken Unknown] cholecalciferol (vitamin D3) 25 mcg (1,000 unit) capsule 50 mcg PO DAILY cap 09/18/20 [History Last Taken Unknown] lisinopril 2.5 mg tablet 5 mg PO DAILY #30 tablet 09/18/20 [Rx Last Taken Unknown] mirabegron 25 mg tablet,extended release 24 hr 100 mg PO Q24H tab 09/18/20 [History Last Taken Unknown] nitroglycerin 0.4 mg sublingual tablet 0.4 mg SL ONCE #25 tablet 09/18/20 [Rx Last Taken Unknown] ondansetron 4 mg disintegrating tablet 4 mg PO Q8H PRN PRN #30 tab 09/18/20 [Rx Last Taken Unknown] pantoprazole 40 mg tablet,delayed release 40 mg PO DAILY #30 tablet 09/18/20 [Rx Last Taken Unknown] potassium chloride 20 mEq tablet,extended release 20 meq PO DAILY 09/18/20 [History Last Taken Unknown] sucralfate 1 gram tablet 1 g PO 4X/DAY #120 tablet 09/18/20 [Rx Last Taken Unknown] trazodone 50 mg tablet 50 mg PO QHS PRN #30 tablet 09/18/20 [Rx Last Taken Unknown] acidophilus-pectin, citrus 1 cap PO DAILY 09/23/20 [History Last Taken Unknown] duloxetine [Cymbalta] 30 mg PO BID 09/23/20 [History Last Taken Unknown] donepezil 10 mg tablet 20 mg PO DAILY #180 tab 10/02/20 [Rx Last Taken Unknown] isosorbide mononitrate 30 mg tablet,extended release 24 hr 30 mg PO BID #60 tab 10/08/20 [Rx Last Taken Unknown] hydroxyzine HCl 50 mg tablet 50 mg PO TID #90 tab 10/19/20 [Rx Last Taken Unknown] promethazine 25 mg PO Q6H PRN PRN #10 tablet 11/07/20 [Rx Last Taken Unknown] carvedilol 12.5 mg tablet 12.5 mg PO BID #60 tab 11/08/20 [Rx Last Taken Unknown] diclofenac potassium 50 mg PO BID #20 tab 11/12/20 [Rx Last Taken Unknown] ondansetron 8 mg PO Q8H PRN PRN #20 tab 11/12/20 [Rx Last Taken Unknown] dicyclomine 20 mg PO Q4H PRN PRN #20 capsule 11/17/20 [Rx Last Taken Unknown] ondansetron 8 mg PO Q8H PRN PRN #20 tab 11/17/20 [Rx Last Taken Unknown] Allergy/AdvReac Type Severity Reaction Status Date / Time indomethacin [From Indocin] Allergy Hives Verified 11/17/20 10:00 indomethacin sodium Allergy Hives Verified 11/17/20 10:00 [From Indocin] iodine Allergy Hives Verified 11/17/20 10:00 propoxyphene napsylate Allergy Out of Verified 11/17/20 10:00 [From Darvocet-N] control aripiprazole [From Abilify] AdvReac Other Verified 11/17/20 10:00 aspirin AdvReac Upset Verified 11/17/20 10:00 Stomach clindamycin AdvReac Nausea Verified 11/17/20 10:00 metformin AdvReac Other Verified 11/17/20 10:00 sumatriptan [From Imitrex] AdvReac Vomiting Verified 11/17/20 10:00 Family History Father Cancer Lung cancer Mother Cancer Pancreatic cancer Surgical History History of amputation of left great toe History of back surgery History of cervical discectomy History of coronary artery stent placement (04/08/16) History of left heart catheterization (09/25/20) History of left knee surgery History of loop recorder (06/2014) History of tonsillectomy and adenoidectomy Social History household members: none Smoking Status: Current every day smoker tobacco type: cigarettes alcohol intake: never substance use type: does not use caffeine: Yes Type: coffee Number of servings: 1 what type of physical activity do you participate in: none and other details: Physical Therapy ROS ROS ED Constitutional Constitutional ED: Denies chills or fever(s) Eyes Eyes: Denies change in vision or diplopia ENT ENT ED: Denies rhinorrhea or sore throat Cardiovascular Cardiovascular: Reports chest pain; Denies palpitations Respiratory/Chest Respiratory/Chest: Denies cough or dyspnea Gastrointestinal Gastrointestinal: Reports abdominal pain and nausea; Denies diarrhea, hematochezia, melena or vomiting Genitourinary Genitourinary ED: Denies dysuria or hematuria Musculoskeletal Musculoskeletal: Denies back pain or neck pain Integumentary Denies abscess or rash Neurologic Neurologic: Denies headache(s), paresthesias or weakness Psychiatric Psychiatric: Denies anxiety or suicidal thoughts EXAM Physical Exam Const Vital Signs: 11/17/20 09:52 11/17/20 10:39 Temperature 97.7 F L Temperature Source Temporal Pulse Rate 20 L 84 Respiratory Rate 16 21 H Blood Pressure 155/89 H 142/74 H Blood Pressure Mean 111 96 Pulse Ox 95 96 Oxygen Delivery Method Room Air Room Air Positive well nourished and well developed General Appearance ED: well developed and NAD HEENT Reports moist mucous membranes normocephalic and atraumatic Eyes PERRL and EOMs intact bilaterally Neck full ROM and supple Resp normal respiratory effort and clear to auscultation bilaterally Cardio regular rate, regular rhythm and no murmurs GI non-distended Auscultation: normoactive bowel sounds Palpation: soft and tender other (diffusely/everywhere); Negative for rebound tenderness present Back/Spine General Back: CVA tenderness right and other FROM w/o apparent discomfort Extremity normal to inspection General Extremety ED: Negative for edema, pulses abnormal or tenderness General Extremity: Negative for edema or pulses abnormal Neuro oriented x3, CN's II-XII intact bilaterally and no sensory deficits noted Sensorium / Orientation: awake and alert Motor Exam: strength 5/5 throughout Skin no rashes or lesions noted and no wounds MDM MDM MDM Narrative Medical decision making narrative: EKG is unchanged and stable for her, her main complaint is abdominal discomfort not chest. I did a troponin anyway since she has had discomfort for 5+ hours, it was negative ruling out acute coronary syndrome in this scenario where the patient has chronically recurring abdominal issues as well. She has been diagnosed with irritable bowel syndrome in the past. I did a CT given her urinary complaints, it was normal. Urine does not show any infection but given her complaints I sent her for a culture anyway, but I do not think she needs antibiotics at this time. She felt better after doses of Zofran and morphine, and after dose of Bentyl she felt better still. I reassured her. I do not think she needs admitted or any other emergent testing. She only has 1 Zofran left at home, she has an appointment with Dr. Jiménez with GI this coming month. Will prescribe her Zofran and dicyclomine to use at home as needed until she follows up, she is comfortable with that plan. Lab Data Attestation: I reviewed the patient's lab results. Labs: Laboratory Results - last 24 hr 11/17/20 11/17/20 11/17/20 10:06 10:06 10:35 WBC 7.6 RBC 4.08 L Hgb 11.1 L Hct 36.7 L MCV 90.0 MCH 27.2 MCHC 30.2 L RDW Std Deviation 49.1 H RDW Coeff of Yeimi 14.9 H Plt Count 310 MPV 9.8 Immature Gran % (Auto) 0.300 Neut % (Auto) 69.5 Lymph % (Auto) 16.[address] % (Auto) 8.1 Eos % (Auto) 5.0 Baso % (Auto) 1.1 H Absolute Neuts (auto) 5.3 Absolute Lymphs (auto) 1.21 Nucleated RBC % 0 Sodium 134 L Potassium 4.1 Chloride 105 Carbon Dioxide 20.0 L Anion Gap 9 BUN 19 H Creatinine 0.75 Estim Creat Clear Calc 75.44 Est GFR (MDRD) Af Amer 100 Est GFR (MDRD) Non-Af 82 BUN/Creatinine Ratio 25.4 H Glucose 150 H Calcium 8.8 Total Bilirubin 0.30 AST 17 ALT 15 Alkaline Phosphatase 86 Troponin I High Sens 10.7 Total Protein 6.2 L Albumin 2.5 L Globulin 3.7 Albumin/Globulin Ratio 0.7 L Lipase 125 Urine Color Yellow Urine Clarity Clear Urine pH 6.0 Ur Specific [place] 1.010 Urine Protein Negative Urine Glucose (UA) Normal Urine Ketones Negative Urine Occult Blood Negative Urine Nitrite Negative Urine Bilirubin Negative Urine Urobilinogen Normal Ur Leukocyte Esterase 100 H Urine RBC 0 SEEN Urine WBC 0-5 SEEN Ur Squamous Epith Cells 0-5 SEEN Urine Bacteria 0 SEEN Urine Mucus 0 SEEN Radiography Chest X-Ray - ED: 1 View, Read by ED Physician and No Acute Disease Diagnostic Testing: Radiology Impression Abdomen/Pelvis CT 11/17/20 10:00 IMPRESSION: No evidence of acute intra-abdominal process or focal inflammation. No evidence of nephrolithiasis or hydronephrosis. Electronically Signed: Bala Starkey DO at 10:42 EDT , Service support , Chest X-Ray 11/17/20 10:03 IMPRESSION: No evidence of acute cardiopulmonary process. Electronically Signed: Bala Starkey DO at 10:43 EDT , Service support , EKG Initial EKG: Attestation: I personally reviewed and interpreted this EKG as follows: Interpretation: Sinus Rhythm, No Acute Injury Pattern and LAFB Comments: Q waves anterior septal with poor R wave progression Prior EKG tracings: available for review Prior: Unchanged Discharge Plan Triage Chief Complaint: Chest Pain ED Provider: Yuval Luciano Dx/Rx/DC Orders Clinical Impression: Abdominal pain, diffuse, Chest pain, non-cardiac Instructions: Abdominal Pain, IBS Diet Lifestyle Prescriptions: New dicyclomine 10 MG capsule 20 mg PO Q4H PRN PRN (Reason: abdominal discomfort) Qty: 20 RF: 0 ondansetron [ondansetron] 4 MG tablet 8 mg PO Q8H PRN PRN (Reason: Nausea) Qty: 20 RF: 0 No Action ropinirole [Requip] 0.5 mg tablet 1 mg PO QHS RF: 0 dicyclomine 20 mg tablet 20 mg PO BID PRN (Reason: abdominal discomfort) Qty: 180 RF: 2 potassium chloride 20 mEq tablet extended release 20 meq PO DAILY RF: 0 Myrbetriq 25 mg tablet extended release 24 hr 100 mg PO Q24H RF: 0 cholecalciferol (vitamin D3) 25 mcg (1,000 unit) capsule 50 mcg PO DAILY RF: 0 trazodone 50 mg tablet 50 mg PO QHS PRN (Reason: insomnia) Qty: 30 RF: 1 nitroglycerin 0.4 mg tablet, sublingual 0.4 mg SL ONCE Qty: 25 RF: 3 isosorbide mononitrate 30 mg tablet extended release 24 hr 30 mg PO BID Qty: 60 RF: 11 donepezil [Aricept] 10 mg tablet 20 mg PO DAILY Qty: 180 RF: 1 albuterol sulfate 1 INHALER inhaler 2 puff INHALATION Q6H PRN PRN (Reason: Sob &/Or Wheezing) RF: 0 conj estrog-medroxyprogest raquel 1 TAB tablet 1 tablet PO DAILY RF: 0 teriflunomide 14 mg tablet 14 mg PO DAILY RF: 0 modafinil 200 MG tablet 200 mg PO DAILY RF: 0 ropinirole 1 MG tablet 1 mg PO LUNCH RF: 0 pioglitazone 30 MG tablet 30 mg PO DAILY RF: 0 acetaminophen 500 MG tablet 1,000 mg PO TID PRN (Reason: pain -02/03) Qty: 1 RF: 0 ferrous sulfate 325 MG tablet 325 mg PO DAILY Qty: 30 RF: 2 ascorbic acid (vitamin C) 500 MG tablet,chewable 500 mg PO DAILY Qty: 30 RF: 0 glimepiride 4 MG tablet 4 mg PO BID Qty: 0 RF: 0 duloxetine [Cymbalta] 30 mg capsule,delayed release(DR/EC) 30 mg PO BID RF: 0 acidophilus-pectin, citrus 100 million cell-10 mg Capsule 1 cap PO DAILY RF: 0 promethazine [promethazine] 25 MG tablet 25 mg PO Q6H PRN PRN (Reason: Nausea) Qty: 10 RF: 0 ondansetron 4 mg tablet,disintegrating 8 mg PO Q8H PRN PRN (Reason: Nausea) Qty: 20 RF: 0 diclofenac potassium 50 mg tablet 50 mg PO BID Qty: 20 RF: 0 (DME) blood-glucose meter [Accu-Chek Ada Plus Meter] Misc See Rx Instructions .ROUTE .MEDSUPPLY Qty: 1 RF: 0 (DME) Accu-Chek Ada Plus test strp Strip See Rx Instructions .ROUTE .MEDSUPPLY Qty: 100 RF: 3 lisinopril 2.5 mg tablet 5 mg PO DAILY Qty: 30 RF: 11 pantoprazole 40 mg tablet,delayed release (DR/EC) 40 mg PO DAILY Qty: 30 RF: 11 atorvastatin 40 mg tablet 40 mg PO DAILY Qty: 30 RF: 11 sucralfate 1 gram tablet 1 g PO 4X/DAY Qty: 120 RF: 1 ondansetron 4 mg tablet,disintegrating 4 mg PO Q8H PRN PRN (Reason: Nausea) Qty: 30 RF: 3 hydroxyzine HCl 50 mg tablet 50 mg PO TID Qty: 90 RF: 0 carvedilol 12.5 mg tablet 12.5 mg PO BID Qty: 60 RF: 1 Primary Care Provider: Tom Sherman Referrals: Tom Sherman MD [Primary Care Provider] - 1 Week if not improving Disposition Disposition: Home, Self Care
[2020-11-17] MEDS: Morphine 4 MG/ML Syringe IV (10:08)
[2020-11-17] MEDS: Ondansetron 4 MG/2 ML Vial IV (10:09)
[2020-11-17 10:32] LABS: Absolute Lymphocyte Count 1.21 X10^3/uL (0.83-4.51); Absolute Neutrophil Count 5.3 X10^3/uL (2.0-7.7); Basophil# 0.08 X10^3/uL; Basophil% 1.1 % (0-1); Eosinophil# 0.38 X10^3/uL; Hematocrit 36.7 % (37-47); Hemoglobin 11.1 g/dL (12.0-15.0); Lymphocyte # 1.21 X10^3/ul (0.83-4.51); Mean Corp Hgb Conc 30.2 g/dL (32-36); Mean Corpuscular Hgb 27.2 pg (27.0-32.0); Mean Platelet Vol. 9.8 fl (6.2-12.0); Monocyte# 0.61 X10^3/uL; Monocyte% 8.1 % (0-10); NRBC Flagged by Analyzer 0 % (0-5); Neutrophil # 5.27 X10^3/uL (2.7-7.7); Neutrophil % 69.5 % (47-70); Platelet Count 310 K/mm3 (150-450); RBC Distribution Width CV 14.9 % (11.6-14.6); RBC Distribution Width SD 49.1 fl (35.1-43.9); Red Blood Count 4.08 M/mm3 (4.2-5.4); White Blood Count 7.6 K/mm3 (4.4-11.0)
[2020-11-17 10:39] VITALS: BP 142/74; PULSE 84; RESP 21; O2SAT 96
[2020-11-17 10:42] LABS: Bacteria 0 SEEN /hpf (None Seen); Mucous, Urine 0 SEEN /hpf (<or=2+); Red Blood Cells-Urine 0 SEEN /hpf (0-5)
[2020-11-17 10:44] LABS: Color, Urine Yellow (Yellow); Glucose, Dipstick Normal (Normal); Ketone-Dipstick Negative (Negative); Leukocyte Esterase-Dipstick 100 /ul (Negative); Nitrite-Dipstick Negative (Negative); Occult Blood-Urine Negative /ul (Negative); Protein-Dipstick Negative (Negative); Urine Bilirubin Dipstick Negative (Negative); Urine Clarity Clear (Clear); Urine Urobilinogen Normal (Normal)
[2020-11-17 10:49] LABS: Squamous Epithelial Cells - UA 0-5 SEEN /hpf (5-10)
[2020-11-17 10:50] LABS: White Blood Cells 0-5 SEEN /hpf (0-5)
[2020-11-17 10:58] LABS: ALB/GLOB Ratio 0.7 RATIO (0.9-2.4); AST(SGOT) 17 U/L (15-37); Alanine Aminotransfer ALT/SGPT 15 U/L (13-56); Albumin, Serum 2.5 g/dL (3.2-5.0); Alkaline Phosphatase 86 U/L (45-117); Anion Gap 9 (5-15); BUN 19 mg/dL (7-18); BUN/Creat Ratio 25.4 RATIO (10-20); Calcium,Total 8.8 mg/dL (8.5-10.1); Chloride 105 mmol/L (98-107); Creatinine, Serum 0.75 mg/dL (0.55-1.02); EST Glomerular Filtration Rate 82 mL/min (>60); Est Glom Filt Rate - Afr Amer 100 mL/min (>60); Estimated Creatinine Clearance 75.44 ml/min; Globulin 3.7 g/dL (2.2-4.2); Glucose 150 mg/dL (74-106); Lipase 125 U/L (73-393); Potassium 4.1 mmol/L (3.5-5.1); Protein, Total 6.2 g/dL (6.4-8.2); Sodium Level 134 mmol/L (136-145); Troponin-I HS 10.7 pg/mL (3.0-53.7)
[2020-11-17] MEDS: Dicyclomine 20 MG/2 ML Vial IM (11:30)
[2020-11-17 12:04] VITALS: BP 162/76; PULSE 80; RESP 16
== END 2020-11-17 12:05 | disposition home or self-care (01) ==
PROVIDERS: Emergency Provider Emergency Medicine; PCP Internal Medicine
DX: R07.89 Other chest pain (principal); R10.9 Unspecified abdominal pain; I25.10 Atherosclerotic heart disease of native coronary artery without angina pectoris; I11.0 Hypertensive heart disease with heart failure; I50.22 Chronic systolic (congestive) heart failure; I48.0 Paroxysmal atrial fibrillation; I25.5 Ischemic cardiomyopathy; I25.2 Old myocardial infarction; E11.9 Type 2 diabetes mellitus without complications; J44.9 Chronic obstructive pulmonary disease, unspecified; F17.210 Nicotine dependence, cigarettes, uncomplicated; Z95.5 Presence of coronary angioplasty implant and graft; Z79.82 Long term (current) use of aspirin; Z79.84 Long term (current) use of oral hypoglycemic drugs; Z79.899 Other long term (current) drug therapy
CPT/HCPCS: 36415; 71045; 74176; 80053; 81001; 83690; 84484; 85025; 87086; 87088; 93005; 96372; 96374; 96375; 99284; A4216; J2405

== ENCOUNTER 2020-11-19 12:36 | Emergency (ER) | payer MEDICARE, MEDICAID, SELFPAY ==
[2016-07-13 11:45] VITALS: BMI 31.4
[2020-11-19 12:37] VITALS: BP 107/79; PULSE 66; RESP 15; TEMP 36.8; O2SAT 98; BMI 28.8
--- NOTE | 2020-11-19 12:50 | RAD_ITS ---
STUDY: X-RAY - RIGHT ANKLE REASON FOR EXAM: Right ankle pain, right ankle injury from a fall. TECHNIQUE: 3 view(s) of the ankle. COMPARISON: Radiographs 01/27/2016. FINDINGS: There is a suspected nondisplaced fracture of the lateral aspect of the distal tibia. There are corticated ossicles of the distal aspect of the lateral malleolus without interval change suggestive of remote injury. There is an osteophyte of the anterior aspect of the distal tibia with preservation of tibiotalar joint space. There is a posterior calcaneal enthesophyte. The visualized subtalar, talonavicular, calcaneocuboid and tarsal articulations are normal. There are multiple intra-articular bodies in the tibiotalar joint as on the prior study. There is mild soft tissue swelling. RAD/Ankle min 3 Views IMPRESSION: Suspected nondisplaced fracture of the lateral aspect of the distal tibia. Tibiotalar intra-articular bodies. Posterior calcaneal enthesophyte. Electronically Signed: Malcom Hernandez MD at 13:15 EDT Tel , Service support ,
[2020-11-19] MEDS: Acetaminophen 500 MG Tablet 1000 MG PO (13:28)
[2020-11-19 13:46] VITALS: BP 115/54; PULSE 72; RESP 16; O2SAT 96
--- NOTE | 2020-11-19 14:30 | EDS_ITS ---
HPI History of Present Illness HPI Narrative: Patient presents with right ankle injury that occurred today. Patient states she tripped and twisted her right ankle. Patient states her pain is worse with weightbearing. Patient describes her pain as sharp and aching. Patient denies any paresthesias or weakness. Patient denies any head injury or loss of consciousness. Patient denies any pain over the fifth metatarsal or proximal fibula. Patient denies any other injuries. 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 Cervical spinal stenosis Chronic systolic (congestive) heart failure COPD (chronic obstructive pulmonary disease) Diabetes mellitus type 2 in nonobese Essential (primary) hypertension History of ST elevation myocardial infarction (STEMI) IBS (irritable bowel syndrome) Irritable bowel syndrome with diarrhea Ischemic cardiomyopathy Left ventricular hypertrophy Major depression Multiple sclerosis Nicotine abuse BRYAN (obstructive sleep apnea) Pain of right lower extremity Paroxysmal atrial fibrillation RLS (restless legs syndrome) Suicidal ideation Tachycardia Takotsubo syndrome Vitamin B12 deficiency Home Medications albuterol sulfate 2 puff INHALATION Q6H PRN PRN 10/23/17 [History Last Taken 06/08/19] ropinirole 0.5 mg tablet 1 mg PO QHS tablet 08/21/19 [History Last Taken 08/13/20] conj estrog-medroxyprogest raquel 1 tablet PO DAILY 09/20/19 [History Last Taken 08/14/20 09:00] teriflunomide 14 mg PO DAILY 09/20/19 [History Last Taken 08/14/20 09:00] modafinil 200 mg PO DAILY 12/12/19 [History Last Taken 08/14/20 09:00] pioglitazone 30 mg PO DAILY 12/25/19 [History Last Taken 12/25/19 21:00] ropinirole 1 mg PO LUNCH 12/25/19 [History Last Taken 08/14/20 13:00] dicyclomine 20 mg tablet 20 mg PO BID PRN #180 tablet 03/15/20 [Rx Last Taken 08/14/20 13:00] acetaminophen 1,000 mg PO TID PRN #1 tablet 07/29/20 [Rx Last Taken Unknown] blood sugar diagnostic #100 each 08/10/20 [Rx Last Taken Unknown] blood-glucose meter #1 each 08/10/20 [Rx Last Taken Unknown] ascorbic acid (vitamin C) 500 mg PO DAILY #30 tab.chew 08/17/20 [Rx Last Taken Unknown] ferrous sulfate 325 mg PO DAILY #30 tablet 08/17/20 [Rx Last Taken Unknown] glimepiride 4 mg PO BID #0 08/17/20 [Rx Last Taken 08/14/20 09:00] atorvastatin 40 mg tablet 40 mg PO DAILY #30 tab 09/18/20 [Rx Last Taken Unknown] cholecalciferol (vitamin D3) 25 mcg (1,000 unit) capsule 50 mcg PO DAILY cap 09/18/20 [History Last Taken Unknown] lisinopril 2.5 mg tablet 5 mg PO DAILY #30 tablet 09/18/20 [Rx Last Taken Unknown] mirabegron 25 mg tablet,extended release 24 hr 100 mg PO Q24H tab 09/18/20 [History Last Taken Unknown] nitroglycerin 0.4 mg sublingual tablet 0.4 mg SL ONCE #25 tablet 09/18/20 [Rx Last Taken Unknown] ondansetron 4 mg disintegrating tablet 4 mg PO Q8H PRN PRN #30 tab 09/18/20 [Rx Last Taken Unknown] pantoprazole 40 mg tablet,delayed release 40 mg PO DAILY #30 tablet 09/18/20 [Rx Last Taken Unknown] potassium chloride 20 mEq tablet,extended release 20 meq PO DAILY 09/18/20 [History Last Taken Unknown] sucralfate 1 gram tablet 1 g PO 4X/DAY #120 tablet 09/18/20 [Rx Last Taken Unknown] trazodone 50 mg tablet 50 mg PO QHS PRN #30 tablet 09/18/20 [Rx Last Taken Unknown] acidophilus-pectin, citrus 1 cap PO DAILY 09/23/20 [History Last Taken Unknown] duloxetine [Cymbalta] 30 mg PO BID 09/23/20 [History Last Taken Unknown] donepezil 10 mg tablet 20 mg PO DAILY #180 tab 10/02/20 [Rx Last Taken Unknown] isosorbide mononitrate 30 mg tablet,extended release 24 hr 30 mg PO BID #60 tab 10/08/20 [Rx Last Taken Unknown] hydroxyzine HCl 50 mg tablet 50 mg PO TID #90 tab 10/19/20 [Rx Last Taken Unknown] promethazine 25 mg PO Q6H PRN PRN #10 tablet 11/07/20 [Rx Last Taken Unknown] carvedilol 12.5 mg tablet 12.5 mg PO BID #60 tab 11/08/20 [Rx Last Taken Unknown] diclofenac potassium 50 mg PO BID #20 tab 11/12/20 [Rx Last Taken Unknown] ondansetron 8 mg PO Q8H PRN PRN #20 tab 11/12/20 [Rx Last Taken Unknown] dicyclomine 20 mg PO Q4H PRN PRN #20 capsule 11/17/20 [Rx Last Taken Unknown] ondansetron 8 mg PO Q8H PRN PRN #20 tab 11/17/20 [Rx Last Taken Unknown] Allergy/AdvReac Type Severity Reaction Status Date / Time indomethacin [From Indocin] Allergy Hives Verified 11/17/20 10:00 indomethacin sodium Allergy Hives Verified 11/17/20 10:00 [From Indocin] iodine Allergy Hives Verified 11/17/20 10:00 propoxyphene napsylate Allergy Out of Verified 11/17/20 10:00 [From Darvocet-N] control aripiprazole [From Abilify] AdvReac Other Verified 11/17/20 10:00 aspirin AdvReac Upset Verified 11/17/20 10:00 Stomach clindamycin AdvReac Nausea Verified 11/17/20 10:00 metformin AdvReac Other Verified 11/17/20 10:00 sumatriptan [From Imitrex] AdvReac Vomiting Verified 11/17/20 10:00 Family History Father Cancer Lung cancer Mother Cancer Pancreatic cancer Surgical History History of amputation of left great toe History of back surgery History of cervical discectomy History of coronary artery stent placement (04/08/16) History of left heart catheterization (09/25/20) History of left knee surgery History of loop recorder (06/2014) History of tonsillectomy and adenoidectomy Social History household members: none Smoking Status: Current every day smoker tobacco type: cigarettes alcohol intake: never substance use type: does not use caffeine: Yes Type: coffee Number of servings: 1 what type of physical activity do you participate in: none and other details: Physical Therapy ROS ROS ED Constitutional Constitutional ED: Denies chills or fever(s) Eyes Eyes: Denies blurry vision or change in vision ENT ENT ED: Denies rhinorrhea or sore throat Cardiovascular Cardiovascular: Denies chest pain or palpitations Respiratory/Chest Respiratory/Chest: Denies cough or dyspnea Gastrointestinal Gastrointestinal: Denies nausea or vomiting Genitourinary Genitourinary ED: Denies dysuria or hematuria Musculoskeletal Musculoskeletal: Reports back pain; Denies neck pain Integumentary Denies abscess or rash Neurologic Neurologic: Denies headache(s) or weakness Allergic/Immunologic Allergic/Immunologic ED: Denies mouth swelling or urticaria EXAM Physical Exam Const Vital Signs: 11/19/20 12:37 11/19/20 13:46 Temperature 98.3 F Temperature Source Oral Pulse Rate 66 72 Respiratory Rate 15 16 Blood Pressure 107/79 115/54 L Blood Pressure Mean 88 Pulse Ox 98 96 Oxygen Delivery Method Room Air Positive well nourished and well developed General Appearance ED: well developed HEENT Reports moist mucous membranes Neck full ROM and supple Extremity Extremity Narrative: There is tenderness over the right ankle. There is minimal edema. There is no ecchymosis. There is no deformity noted. Range of motion was limited in all motions of the right ankle secondary to pain. Sensation was intact to light touch in all digits. Pedal pulses are equal bilaterally. There is no fifth metatarsal tenderness. There is no proximal fibula tenderness. Neuro oriented x3, CN's II-XII intact bilaterally, moves all extremities and no sensory deficits noted Sensorium / Orientation: alert Motor Exam: strength 5/5 throughout Psych mental status grossly normal MDM MDM MDM Narrative Medical decision making narrative: X-rays of the right ankle were obtained. There are 3 views. On my interpretation, there is a questionable nondisplaced fracture of the posterior lateral aspect of the distal tibia. There are some degenerative changes noted. There is no fibular fracture. Radiologist also interpreted the x-ray and agrees. Patient was placed in a well-padded custom made sugar tong splint using 4 inch Ortho-Glass. Patient was given a dose of Tylenol here. Patient was instructed to ice and elevate the right ankle. Patient was instructed to follow-up with her primary care physician in 5 to 7 days. Patient was also given referral for podiatry. Patient was instructed to use her walker as needed. Patient understood and was agreeable with the plan. All questions were answered. Radiography Diagnostic Testing: Radiology Impression Ankle X-Ray 11/19/20 12:50 IMPRESSION: Suspected nondisplaced fracture of the lateral aspect of the distal tibia. Tibiotalar intra-articular bodies. Posterior calcaneal enthesophyte. Electronically Signed: Malcom Hernandez MD at 13:15 EDT Tel , Service support , Procedures Lower Extremity Splints Lower Extremity Splint: Orthoglass and Stirrup Splint Fabrication: Fabricated Location: Right Discharge Plan Triage Chief Complaint: Lower Extremity Injury ED Provider: Yg Rojas Dx/Rx/DC Orders Clinical Impression: Fracture of distal end of right tibia Instructions: ED Ankle Fracture Prescriptions: No Action ropinirole [Requip] 0.5 mg tablet 1 mg PO QHS RF: 0 dicyclomine 20 mg tablet 20 mg PO BID PRN (Reason: abdominal discomfort) Qty: 180 RF: 2 potassium chloride 20 mEq tablet extended release 20 meq PO DAILY RF: 0 Myrbetriq 25 mg tablet extended release 24 hr 100 mg PO Q24H RF: 0 cholecalciferol (vitamin D3) 25 mcg (1,000 unit) capsule 50 mcg PO DAILY RF: 0 trazodone 50 mg tablet 50 mg PO QHS PRN (Reason: insomnia) Qty: 30 RF: 1 nitroglycerin 0.4 mg tablet, sublingual 0.4 mg SL ONCE Qty: 25 RF: 3 isosorbide mononitrate 30 mg tablet extended release 24 hr 30 mg PO BID Qty: 60 RF: 11 donepezil [Aricept] 10 mg tablet 20 mg PO DAILY Qty: 180 RF: 1 albuterol sulfate 1 INHALER inhaler 2 puff INHALATION Q6H PRN PRN (Reason: Sob &/Or Wheezing) RF: 0 conj estrog-medroxyprogest raquel 1 TAB tablet 1 tablet PO DAILY RF: 0 teriflunomide 14 mg tablet 14 mg PO DAILY RF: 0 modafinil 200 MG tablet 200 mg PO DAILY RF: 0 ropinirole 1 MG tablet 1 mg PO LUNCH RF: 0 pioglitazone 30 MG tablet 30 mg PO DAILY RF: 0 acetaminophen 500 MG tablet 1,000 mg PO TID PRN (Reason: pain -02/03) Qty: 1 RF: 0 ferrous sulfate 325 MG tablet 325 mg PO DAILY Qty: 30 RF: 2 ascorbic acid (vitamin C) 500 MG tablet,chewable 500 mg PO DAILY Qty: 30 RF: 0 glimepiride 4 MG tablet 4 mg PO BID Qty: 0 RF: 0 duloxetine [Cymbalta] 30 mg capsule,delayed release(DR/EC) 30 mg PO BID RF: 0 acidophilus-pectin, citrus 100 million cell-10 mg Capsule 1 cap PO DAILY RF: 0 promethazine [promethazine] 25 MG tablet 25 mg PO Q6H PRN PRN (Reason: Nausea) Qty: 10 RF: 0 ondansetron 4 mg tablet,disintegrating 8 mg PO Q8H PRN PRN (Reason: Nausea) Qty: 20 RF: 0 diclofenac potassium 50 mg tablet 50 mg PO BID Qty: 20 RF: 0 dicyclomine 10 MG capsule 20 mg PO Q4H PRN PRN (Reason: abdominal discomfort) Qty: 20 RF: 0 ondansetron [ondansetron] 4 MG tablet 8 mg PO Q8H PRN PRN (Reason: Nausea) Qty: 20 RF: 0 (DME) blood-glucose meter [Accu-Chek Ada Plus Meter] Misc See Rx Instructions .ROUTE .MEDSUPPLY Qty: 1 RF: 0 (DME) Accu-Chek Ada Plus test strp Strip See Rx Instructions .ROUTE .MEDSUPPLY Qty: 100 RF: 3 lisinopril 2.5 mg tablet 5 mg PO DAILY Qty: 30 RF: 11 pantoprazole 40 mg tablet,delayed release (DR/EC) 40 mg PO DAILY Qty: 30 RF: 11 atorvastatin 40 mg tablet 40 mg PO DAILY Qty: 30 RF: 11 sucralfate 1 gram tablet 1 g PO 4X/DAY Qty: 120 RF: 1 ondansetron 4 mg tablet,disintegrating 4 mg PO Q8H PRN PRN (Reason: Nausea) Qty: 30 RF: 3 hydroxyzine HCl 50 mg tablet 50 mg PO TID Qty: 90 RF: 0 carvedilol 12.5 mg tablet 12.5 mg PO BID Qty: 60 RF: 1 Primary Care Provider: Tom Sherman Referrals: Tom Sherman MD [Primary Care Provider] - 5-7 Days Gabby Ponce DPM [STAFF PHYSICIAN] - 3-5 Days Disposition Disposition: Home, Self Care
== END 2020-11-19 14:47 | disposition home or self-care (01) ==
PROVIDERS: Emergency Provider Emergency Medicine; PCP Internal Medicine
DX: S82.301A Unspecified fracture of lower end of right tibia, initial encounter for closed fracture (principal); W18.40XA Slipping, tripping and stumbling without falling, unspecified, initial encounter; Y93.9 Activity, unspecified; Y92.9 Unspecified place or not applicable; Y99.9 Unspecified external cause status; I25.10 Atherosclerotic heart disease of native coronary artery without angina pectoris; I48.0 Paroxysmal atrial fibrillation; I10 Essential (primary) hypertension; I25.2 Old myocardial infarction; E11.9 Type 2 diabetes mellitus without complications; J44.9 Chronic obstructive pulmonary disease, unspecified; G35 Multiple sclerosis; F17.210 Nicotine dependence, cigarettes, uncomplicated; Z79.82 Long term (current) use of aspirin; Z79.84 Long term (current) use of oral hypoglycemic drugs; Z79.899 Other long term (current) drug therapy
CPT/HCPCS: 29515; 73610; 99284

== ENCOUNTER → 2020-11-27 11:39 | Outpatient (CLI) | payer MEDICARE, MEDICAID, SELFPAY ==
[2016-07-13 11:45] VITALS: BMI 31.4
[2020-11-27 11:12] VITALS: BMI 27.2
[2020-11-27 15:22] LABS: Vitamin D,25 Hydroxy 51.8 ng/mL
[2020-11-27 15:34] LABS: T4 Free Direct 1.19 ng/dL (0.76-1.46); Thyroid Stim Hormone (TSH) 1.63 uIU/mL (0.358-3.74)
== END ==
PROVIDERS: Nurse Practitioner Family; PCP Internal Medicine; Referring Provider Nurse Practitioner Family; Visit Provider Nurse Practitioner Family
DX: E78.00 Pure hypercholesterolemia, unspecified (principal); E55.9 Vitamin D deficiency, unspecified; R00.0 Tachycardia, unspecified
CPT/HCPCS: 36415; 82306; 84439; 84443

== ENCOUNTER → 2020-12-06 08:20 | Outpatient (CLI) | payer MEDICARE, MEDICAID, SELFPAY ==
[2016-07-13 11:45] VITALS: BMI 31.4
[2020-11-27 11:12] VITALS: BMI 27.2
--- NOTE | 2020-12-06 08:25 | BD_ITS ---
STUDY: DUAL ENERGY X-RAY ABSORPTIOMETRY / DXA REASON FOR EXAM: Female, 64 years old. Screening. Patient is postmenopausal. TECHNIQUE: Bone Mineral Density (BMD) measurements of lumbar spine and bilateral hips were obtained. COMPARISON: None. FINDINGS: Lumbar Spine (L1-L4): g/cm2 (1.095) / T-score (0.4) / Z-score (2.3) Findings are suggestive of normal bone density with a low fracture risk. Left Femur Total: g/cm2 (0.659) / T-score (-2.3) / Z-score (-1.0) Left Femoral Neck: g/cm2 (0.642) / T-score (-1.9) / Z-score (-0.3) Right Femur Total: g/cm2 (0.702) / T-score (-2.0) / Z-score (-0.7) Right Femoral Neck: g/cm2 (0.539) / T-score (-2.8) / Z-score (-1.2) BD/Dexa Bone Density Study IMPRESSION: The patient is considered osteoporotic as outlined below according to World [employer]ave[employer] Organization (WHO) criteria with a high fracture risk. Reference Information: The T-score is the number of standard deviations above or below the standard which is normal for young adults at their peak bone mineral density. The World Health Organization (WHO) interprets the T-scores as follows: Above -1 Normal bone density Between -1 and -2.5 Osteopenia Equal to / or below -2.5 Osteoporosis As a practical clinical guideline, osteopenia may be graded as follows: Mild -1 through -1.5 Moderate -1.6 through -2.0 Severe -2.1 through -2.4 The Z-score is the number of standard deviations above or below age-matched controls. A Z-score of less than -1.5 would be considered abnormal. References: 1. NIH Osteoporosis and Related Bone Diseases www osteo.org 2. International Society for Clinical Densitometry www iscd.org 3. National Osteoporosis Foundation www nof.org Electronically Signed: Daljit Jordan MD at 12:23 EDT , Service support ,
== END ==
PROVIDERS: PCP Internal Medicine; Referring Provider Nurse Practitioner Family; Visit Provider Nurse Practitioner Family
DX: M81.0 Age-related osteoporosis without current pathological fracture (principal); Z78.0 Asymptomatic menopausal state
CPT/HCPCS: 77080

== ENCOUNTER 2020-12-11 14:02 | Emergency (ER) | payer MEDICARE, MEDICAID, SELFPAY ==
[2016-07-13 11:45] VITALS: BMI 31.4
[2020-11-27 11:12] VITALS: BMI 27.2
[2020-12-11 14:03] VITALS: BP 173/97; PULSE 102; RESP 18; TEMP 36.6; BMI 31.6
[2020-12-11 14:07] VITALS: BP 173/97; PULSE 102; RESP 18; TEMP 36.6
--- NOTE | 2020-12-11 14:33 | RAD_ITS ---
STUDY: X-RAY CHEST REASON FOR EXAM: Female, 64 years old. Chest pain TECHNIQUE: Single AP portable view of the chest. COMPARISON: Comparison is made with prior study dated 11/17/2020. FINDINGS: EKG electrodes are seen. The lungs are clear and expanded. There is no demonstrated pleural abnormality. Normal size heart. A loop recorder is seen overlying the left medial upper abdomen. Normal mediastinum and sara. Normal visualized pulmonary arteries. There is atherosclerotic tortuosity of the aortic arch and descending thoracic aorta. There are diffuse degenerative changes of the visualized thoracic spine. There is evidence of prior fusion of the lower cervical spine. There is no demonstrated abnormality of the visualized soft tissue structures of the upper abdomen. RAD/Chest 1 View (Portable) IMPRESSION: No acute abnormality is seen. Stable examination. Electronically Signed: Daljit Jordan MD at 15:29 EDT , Service support ,
--- NOTE | 2020-12-11 14:33 | EKG12_ITS ---
Test Reason : Blood Pressure : / mmHG Vent. Rate : 079 BPM Atrial Rate : 079 BPM P-R Int : 150 ms QRS Dur : 086 ms QT Int : 396 ms P-R-T Axes : 046 -49 096 degrees QTc Int : 454 ms Normal sinus rhythm Left axis deviation Inferior infarct , age undetermined Anterolateral infarct , age undetermined Abnormal ECG Confirmed by ALLAN WITT, DORYS ([id number]), city editor YUNG MUNGUIA ([id number]) on 12/12/2020 1:37:58 PM Referred By: JUWAN Confirmed By:DORYS LEMUS MD
--- NOTE | 2020-12-11 14:35 | EDS_ITS ---
HPI History of Present Illness Chief Complaint: Chest Pain Informant: patient Onset/Context/Timing Onset: Today (After eating lunch at around 1230-1 PM) Activity at onset: gradual Timing: Continuous Quality: Positive for Sharp Location: Substernal (Lower, in addition to left lateral chest and left shoulder) Current Severity: Moderate Maximum Severity: Severe Worsened By: - (Lying supine); Not Worsened By Breathing Relieved By: Nothing Associated Symptoms: Positive for Nausea (Better after taking Zofran); Negative for Vomiting, Diaphoresis, Dyspnea, Cough, Lightheadedness and Palpitations Narrative Narrative: Patient states had chest discomfort after eating lunch initially felt like indigestion, then she lie down and the symptoms became worse. No other associated symptoms except for some nausea which she successfully treated herself with Zofran. When she lie down it felt worse she checked her blood pressure and it was somewhere in the 210/110 range which is why she called EMS. She denies any recent health flareup such as her COPD which has been stable. No recent fevers or chills. No leg pain or swelling. No presyncope or palpitations with this. 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 Cervical spinal stenosis Chronic back pain Chronic systolic (congestive) heart failure Closed right tibial fracture COPD (chronic obstructive pulmonary disease) Diabetes mellitus type 2 in nonobese Essential (primary) hypertension History of ST elevation myocardial infarction (STEMI) IBS (irritable bowel syndrome) Irritable bowel syndrome with diarrhea Ischemic cardiomyopathy Left ventricular hypertrophy Major depression Multiple sclerosis Nicotine abuse BRYAN (obstructive sleep apnea) Pain of right lower extremity Paroxysmal atrial fibrillation RLS (restless legs syndrome) Suicidal ideation Tachycardia Takotsubo syndrome Vitamin B12 deficiency Home Medications albuterol sulfate 2 puff INHALATION Q6H PRN PRN 10/23/17 [History Last Taken 06/08/19] ropinirole 0.5 mg tablet 1 mg PO QHS tablet 08/21/19 [History Last Taken 08/13/20] conj estrog-medroxyprogest raquel 1 tablet PO DAILY 09/20/19 [History Last Taken 08/14/20 09:00] teriflunomide 14 mg PO DAILY 09/20/19 [History Last Taken 08/14/20 09:00] modafinil 200 mg PO DAILY 12/12/19 [History Last Taken 08/14/20 09:00] pioglitazone 30 mg PO DAILY 12/25/19 [History Last Taken 12/25/19 21:00] ropinirole 1 mg PO LUNCH 12/25/19 [History Last Taken 08/14/20 13:00] dicyclomine 20 mg tablet 20 mg PO BID PRN #180 tablet 03/15/20 [Rx Last Taken 08/14/20 13:00] acetaminophen 1,000 mg PO TID PRN #1 tablet 07/29/20 [Rx Last Taken Unknown] blood sugar diagnostic #100 each 08/10/20 [Rx Last Taken Unknown] blood-glucose meter #1 each 08/10/20 [Rx Last Taken Unknown] ascorbic acid (vitamin C) 500 mg PO DAILY #30 tab.chew 08/17/20 [Rx Last Taken Unknown] ferrous sulfate 325 mg PO DAILY #30 tablet 08/17/20 [Rx Last Taken Unknown] glimepiride 4 mg PO BID #0 08/17/20 [Rx Last Taken 08/14/20 09:00] atorvastatin 40 mg tablet 40 mg PO DAILY #30 tab 09/18/20 [Rx Last Taken Unknown] cholecalciferol (vitamin D3) 25 mcg (1,000 unit) capsule 50 mcg PO DAILY cap 09/18/20 [History Last Taken Unknown] lisinopril 2.5 mg tablet 5 mg PO DAILY #30 tablet 09/18/20 [Rx Last Taken Unknown] mirabegron 25 mg tablet,extended release 24 hr 100 mg PO Q24H tab 09/18/20 [History Last Taken Unknown] nitroglycerin 0.4 mg sublingual tablet 0.4 mg SL ONCE #25 tablet 09/18/20 [Rx Last Taken Unknown] ondansetron 4 mg disintegrating tablet 4 mg PO Q8H PRN PRN #30 tab 09/18/20 [Rx Last Taken Unknown] pantoprazole 40 mg tablet,delayed release 40 mg PO DAILY #30 tablet 09/18/20 [Rx Last Taken Unknown] potassium chloride 20 mEq tablet,extended release 20 meq PO DAILY 09/18/20 [History Last Taken Unknown] sucralfate 1 gram tablet 1 g PO 4X/DAY #120 tablet 09/18/20 [Rx Last Taken Unknown] trazodone 50 mg tablet 50 mg PO QHS PRN #30 tablet 09/18/20 [Rx Last Taken Unknown] acidophilus-pectin, citrus 1 cap PO DAILY 09/23/20 [History Last Taken Unknown] donepezil 10 mg tablet 20 mg PO DAILY #180 tab 10/02/20 [Rx Last Taken Unknown] isosorbide mononitrate 30 mg tablet,extended release 24 hr 30 mg PO BID #60 tab 10/08/20 [Rx Last Taken Unknown] promethazine 25 mg PO Q6H PRN PRN #10 tablet 11/07/20 [Rx Last Taken Unknown] diclofenac potassium 50 mg PO BID #20 tab 11/12/20 [Rx Last Taken Unknown] ondansetron 8 mg PO Q8H PRN PRN #20 tab 11/12/20 [Rx Last Taken Unknown] dicyclomine 20 mg PO Q4H PRN PRN #20 capsule 11/17/20 [Rx Last Taken Unknown] ondansetron 8 mg PO Q8H PRN PRN #20 tab 11/17/20 [Rx Last Taken Unknown] hydroxyzine HCl 50 mg tablet 50 mg PO TID #90 tab 11/21/20 [Rx Last Taken Unknown] oxycodone-acetaminophen 1 tab PO Q8H PRN 7 Days #20 tab 11/27/20 [Rx Last Taken Unknown] carvedilol 12.5 mg tablet 12.5 mg PO BID #60 tab 11/30/20 [Rx Last Taken Unknown] duloxetine 30 mg capsule,delayed release 30 mg PO BID #60 cap 12/05/20 [Rx Last Taken Unknown] oxycodone-acetaminophen 1 tab PO Q8H PRN 5 Days #14 tab 12/07/20 [Rx Last Taken Unknown] Allergy/AdvReac Type Severity Reaction Status Date / Time indomethacin [From Indocin] Allergy Hives Verified 12/11/20 14:07 indomethacin sodium Allergy Hives Verified 12/11/20 14:07 [From Indocin] iodine Allergy Hives Verified 12/11/20 14:07 propoxyphene napsylate Allergy Out of Verified 12/11/20 14:07 [From Darvocet-N] control aripiprazole [From Abilify] AdvReac Other Verified 12/11/20 14:07 aspirin AdvReac Upset Verified 12/11/20 14:07 Stomach clindamycin AdvReac Nausea Verified 12/11/20 14:07 metformin AdvReac Other Verified 12/11/20 14:07 sumatriptan [From Imitrex] AdvReac Vomiting Verified 12/11/20 14:07 Family History Father Cancer Lung cancer Mother Cancer Pancreatic cancer Surgical History History of amputation of left great toe History of back surgery History of cervical discectomy History of coronary artery stent placement (04/08/16) History of left heart catheterization (09/25/20) History of left knee surgery History of loop recorder (06/2014) History of tonsillectomy and adenoidectomy Social History household members: none Smoking Status: Current every day smoker tobacco type: cigarettes alcohol intake: never substance use type: does not use caffeine: Yes Type: coffee Number of servings: 1 what type of physical activity do you participate in: none and other details: Physical Therapy ROS ROS ED Constitutional Constitutional ED: Denies chills or fever(s) Eyes Eyes: Denies change in vision or diplopia ENT ENT ED: Denies rhinorrhea or sore throat Cardiovascular Cardiovascular: Reports as per HPI and chest pain; Denies palpitations Respiratory/Chest Respiratory/Chest: Denies cough or dyspnea Gastrointestinal Gastrointestinal: Reports nausea; Denies abdominal pain, diarrhea or vomiting Genitourinary Genitourinary ED: Denies dysuria or hematuria Musculoskeletal Musculoskeletal: Denies back pain or neck pain Integumentary Denies abscess or rash Neurologic Neurologic: Denies headache(s), paresthesias or weakness Psychiatric Psychiatric: Denies anxiety or suicidal thoughts EXAM Physical Exam Const Vital Signs: 12/11/20 14:03 12/11/20 14:07 12/11/20 14:44 Temperature 97.9 F 97.9 F Temperature Source Temporal Temporal Pulse Rate 102 H 102 H Respiratory Rate 18 18 Blood Pressure 173/97 H 173/97 H Blood Pressure Mean 122 122 Pulse Ox Oxygen Delivery Method Room Air Room Air 12/11/20 16:02 12/11/20 17:05 Temperature Temperature Source Pulse Rate 78 76 Respiratory Rate 20 H 16 Blood Pressure 117/53 L 147/76 H Blood Pressure Mean 74 99 Pulse Ox 98 Oxygen Delivery Method Room Air Positive well nourished, well developed, unkempt, alert and oriented x3 Constitutional Narrative: Well-appearing in no distress conversive in full sentences General Appearance ED: unkempt, well developed and NAD HEENT Reports moist mucous membranes normocephalic and atraumatic Eyes PERRL and EOMs intact bilaterally Neck full ROM and supple Resp normal respiratory effort, no use of accessory muscles and clear to auscultation bilaterally Resp Narrative: Diffusely diminished, symmetric Cardio regular rate, regular rhythm and no murmurs GI non-tender and non-distended Auscultation: normoactive bowel sounds Palpation: soft Back/Spine no CVA tenderness General Back: other FROM Extremity normal to inspection General Extremety ED: Negative for edema, pulses abnormal or tenderness General Extremity: Negative for edema or pulses abnormal Neuro oriented x3, CN's II-XII intact bilaterally and no sensory deficits noted Sensorium / Orientation: awake and alert Motor Exam: strength 5/5 throughout Psych Appearance: unkempt Skin no rashes or lesions noted and no wounds Heart Score History: Slightly/Non-Suspicious ECG: Nonspecific Repolarization Age: >/= 65 years Risk Factors: >/= 3 Risk Factors or History of CAD Troponin: </= Normal Limit Score: 5 MDM MDM MDM Narrative Medical decision making narrative: Given the fact that the patient's symptoms are atypical for cardiac etiology and her blood pressure currently is 150 systolic and she is still having chest discomfort, folic indigestion, and worse with lying down, she was agreeable to trying a GI cocktail first for her discomfort, in case this is esophageal/acid-related discomfort. She stated afterwards that this made her discomfort worse. She was given a dose of morphine while we awaited a delta troponin measurement, which was done and negative. Patient meets criteria for safe discharge home and close outpatient follow-up. We watched her blood pressure here, subsequent measurements without treatment were 117/53, 147/76. I am comfortable letting her go home with these numbers and have a repeat evaluation as an outpatient. Regardless I do not think her chest discomfort sounded like unstable angina, and she has 2 negative troponins and an unchanged EKG. She was asking for food while waiting for her second troponin to result. Lab Data Attestation: I reviewed the patient's lab results. Labs: Laboratory Results - last 24 hr 12/11/20 12/11/20 12/11/20 14:00 14:00 16:05 WBC 8.1 RBC 4.55 Hgb 12.6 Hct 40.9 MCV 89.9 MCH 27.7 MCHC 30.8 L RDW Std Deviation 55.6 H RDW Coeff of [place] 16.7 H Plt Count 307 MPV 9.8 Immature Gran % (Auto) 0.400 Neut % (Auto) 76.2 H Lymph % (Auto) 13.1 L [place] % (Auto) 8.1 Eos % (Auto) 1.5 Baso % (Auto) 0.7 Absolute Neuts (auto) 6.2 Absolute Lymphs (auto) 1.06 Nucleated RBC % 0 Sodium 136 Potassium 4.6 Chloride 103 Carbon Dioxide 27.0 Anion Gap 6 BUN 17 Creatinine 0.90 Estim Creat Clear Calc 56.08 Est GFR (MDRD) Af Amer 80 Est GFR (MDRD) Non-Af 66 BUN/Creatinine Ratio 18.8 Glucose 301 H Calcium 10.1 Troponin I High Sens 11.8 16.8 Radiography Chest X-Ray - ED: 1 View, Read by ED Physician, No Acute Disease and Chronic Changes Diagnostic Testing: Radiology Impression Chest X-Ray 12/11/20 14:33 IMPRESSION: No acute abnormality is seen. Stable examination. Electronically Signed: Daljit Jordan MD at 15:29 EDT , Service support , EKG Initial EKG: Attestation: I personally reviewed and interpreted this EKG as follows: Interpretation: Sinus Rhythm, No Acute Injury Pattern, LAFB and Non- Specific ST Changes Prior EKG tracings: available for review Prior: Unchanged Discharge Plan Triage Chief Complaint: Chest Pain ED Provider: Yuval Luciano Dx/Rx/DC Orders Clinical Impression: Chest pain, unspecified, Episode of hypertension, Hyperglycemia due to type 2 diabetes mellitus Instructions: Hypertension Dc, ED Chest Pain, Uncertain Cause Prescriptions: No Action ropinirole [Requip] 0.5 mg tablet 1 mg PO QHS RF: 0 dicyclomine 20 mg tablet 20 mg PO BID PRN (Reason: abdominal discomfort) Qty: 180 RF: 2 potassium chloride 20 mEq tablet extended release 20 meq PO DAILY RF: 0 Myrbetriq 25 mg tablet extended release 24 hr 100 mg PO Q24H RF: 0 cholecalciferol (vitamin D3) 25 mcg (1,000 unit) capsule 50 mcg PO DAILY RF: 0 trazodone 50 mg tablet 50 mg PO QHS PRN (Reason: insomnia) Qty: 30 RF: 1 nitroglycerin 0.4 mg tablet, sublingual 0.4 mg SL ONCE Qty: 25 RF: 3 isosorbide mononitrate 30 mg tablet extended release 24 hr 30 mg PO BID Qty: 60 RF: 11 donepezil [Aricept] 10 mg tablet 20 mg PO DAILY Qty: 180 RF: 1 albuterol sulfate 1 INHALER inhaler 2 puff INHALATION Q6H PRN PRN (Reason: Sob &/Or Wheezing) RF: 0 conj estrog-medroxyprogest raquel 1 TAB tablet 1 tablet PO DAILY RF: 0 teriflunomide 14 mg tablet 14 mg PO DAILY RF: 0 modafinil 200 MG tablet 200 mg PO DAILY RF: 0 ropinirole 1 MG tablet 1 mg PO LUNCH RF: 0 pioglitazone 30 MG tablet 30 mg PO DAILY RF: 0 acetaminophen 500 MG tablet 1,000 mg PO TID PRN (Reason: pain -02/03) Qty: 1 RF: 0 ferrous sulfate 325 MG tablet 325 mg PO DAILY Qty: 30 RF: 2 ascorbic acid (vitamin C) 500 MG tablet,chewable 500 mg PO DAILY Qty: 30 RF: 0 glimepiride 4 MG tablet 4 mg PO BID Qty: 0 RF: 0 acidophilus-pectin, citrus 100 million cell-10 mg Capsule 1 cap PO DAILY RF: 0 promethazine [promethazine] 25 MG tablet 25 mg PO Q6H PRN PRN (Reason: Nausea) Qty: 10 RF: 0 ondansetron 4 mg tablet,disintegrating 8 mg PO Q8H PRN PRN (Reason: Nausea) Qty: 20 RF: 0 diclofenac potassium 50 mg tablet 50 mg PO BID Qty: 20 RF: 0 dicyclomine 10 MG capsule 20 mg PO Q4H PRN PRN (Reason: abdominal discomfort) Qty: 20 RF: 0 ondansetron [ondansetron] 4 MG tablet 8 mg PO Q8H PRN PRN (Reason: Nausea) Qty: 20 RF: 0 oxycodone-acetaminophen 5-325 mg tablet 1 tab PO Q8H PRN (Reason: pain) 5 Days Qty: 14 RF: 0 oxycodone-acetaminophen 5-325 mg tablet 1 tab PO Q8H PRN (Reason: pain) 7 Days Qty: 20 RF: 0 (DME) blood-glucose meter [Accu-Chek Ada Plus Meter] Misc See Rx Instructions .ROUTE .MEDSUPPLY Qty: 1 RF: 0 (DME) Accu-Chek Ada Plus test strp Strip See Rx Instructions .ROUTE .MEDSUPPLY Qty: 100 RF: 3 lisinopril 2.5 mg tablet 5 mg PO DAILY Qty: 30 RF: 11 pantoprazole 40 mg tablet,delayed release (DR/EC) 40 mg PO DAILY Qty: 30 RF: 11 atorvastatin 40 mg tablet 40 mg PO DAILY Qty: 30 RF: 11 sucralfate 1 gram tablet 1 g PO 4X/DAY Qty: 120 RF: 1 ondansetron 4 mg tablet,disintegrating 4 mg PO Q8H PRN PRN (Reason: Nausea) Qty: 30 RF: 3 hydroxyzine HCl 50 mg tablet 50 mg PO TID Qty: 90 RF: 0 carvedilol 12.5 mg tablet 12.5 mg PO BID Qty: 60 RF: 11 duloxetine [Cymbalta] 30 mg capsule,delayed release(DR/EC) 30 mg PO BID Qty: 60 RF: 2 Primary Care Provider: Tom Sherman Referrals: Tom Sherman MD [Primary Care Provider] - 1-2 Days if not improving Disposition Disposition: Home, Self Care
[2020-12-11 14:47] LABS: Absolute Lymphocyte Count 1.06 X10^3/uL (0.83-4.51); Absolute Neutrophil Count 6.2 X10^3/uL (2.0-7.7); Basophil# 0.06 X10^3/uL; Basophil% 0.7 % (0-1); Eosinophil# 0.12 X10^3/uL; Eosinophils% 1.5 % (0-5); Hematocrit 40.9 % (37-47); Hemoglobin 12.6 g/dL (12.0-15.0); Lymphocyte # 1.06 X10^3/ul (0.83-4.51); Lymphocyte % 13.1 % (19-41); Mean Corp Hgb Conc 30.8 g/dL (32-36); Mean Corpuscular Hgb 27.7 pg (27.0-32.0); Mean Corpuscular Volume 89.9 fL (81-99); Mean Platelet Vol. 9.8 fl (6.2-12.0); Monocyte# 0.65 X10^3/uL; Monocyte% 8.1 % (0-10); NRBC Flagged by Analyzer 0 % (0-5); Neutrophil # 6.15 X10^3/uL (2.7-7.7); Neutrophil % 76.2 % (47-70); Platelet Count 307 K/mm3 (150-450); RBC Distribution Width CV 16.7 % (11.6-14.6); RBC Distribution Width SD 55.6 fl (35.1-43.9); Red Blood Count 4.55 M/mm3 (4.2-5.4); White Blood Count 8.1 K/mm3 (4.4-11.0)
[2020-12-11] MEDS: Mag Hydrox/Al Hydrox/Simeth 30 ML UDC PO (14:57)
[2020-12-11 15:02] LABS: Anion Gap 6 (5-15); BUN 17 mg/dL (7-18); BUN/Creat Ratio 18.8 RATIO (10-20); Calcium,Total 10.1 mg/dL (8.5-10.1); Chloride 103 mmol/L (98-107); EST Glomerular Filtration Rate 66 mL/min (>60); Est Glom Filt Rate - Afr Amer 80 mL/min (>60); Estimated Creatinine Clearance 56.08 ml/min; Glucose 301 mg/dL (74-106); Potassium 4.6 mmol/L (3.5-5.1); Sodium Level 136 mmol/L (136-145); Troponin-I HS 11.8 pg/mL (3.0-53.7)
[2020-12-11 16:02] VITALS: BP 117/53; PULSE 78; RESP 20
[2020-12-11] MEDS: Morphine 4 MG/ML Syringe IV (16:05)
[2020-12-11 16:37] LABS: Troponin-I HS 16.8 pg/mL (3.0-53.7)
[2020-12-11 17:05] VITALS: BP 147/76; PULSE 76; RESP 16; O2SAT 98
[2020-12-11 18:10] VITALS: BP 147/87; PULSE 89; RESP 16
[2020-12-11] MEDS: COVID-19 VAC,AD26(JANSSEN)/PF 0.5 ML SYRINGE IM (18:20)
== END 2020-12-11 18:41 | disposition home or self-care (01) ==
PROVIDERS: Emergency Provider Emergency Medicine; PCP Internal Medicine
DX: R07.9 Chest pain, unspecified (principal); E11.65 Type 2 diabetes mellitus with hyperglycemia; I25.10 Atherosclerotic heart disease of native coronary artery without angina pectoris; I11.0 Hypertensive heart disease with heart failure; I50.22 Chronic systolic (congestive) heart failure; J44.9 Chronic obstructive pulmonary disease, unspecified; I48.0 Paroxysmal atrial fibrillation; I25.5 Ischemic cardiomyopathy; I25.2 Old myocardial infarction; G35 Multiple sclerosis; F32.9 Major depressive disorder, single episode, unspecified; F41.9 Anxiety disorder, unspecified; F17.210 Nicotine dependence, cigarettes, uncomplicated; Z95.5 Presence of coronary angioplasty implant and graft; Z79.84 Long term (current) use of oral hypoglycemic drugs; Z79.82 Long term (current) use of aspirin; Z79.899 Other long term (current) drug therapy; Z23 Encounter for immunization
CPT/HCPCS: 71045; 80048; 84484; 85025; 91303; 93005; 96374; 99285; A4216

== ENCOUNTER 2021-01-06 09:11 | Emergency (ER) | payer MEDICARE, MEDICAID, SELFPAY ==
[2016-07-13 11:45] VITALS: BMI 31.4
[2021-01-06 09:12] VITALS: BP 141/91; PULSE 72; RESP 16; TEMP 36.7; O2SAT 97; BMI 30.9
[2021-01-06 09:14] VITALS: BP 141/91; PULSE 70; RESP 16; TEMP 36.7; O2SAT 97
--- NOTE | 2021-01-06 09:21 | EX.ED.DYSGE1 ---
HPI History of Present Illness Chief Complaint: Complaint Informant: patient Onset/Context/Timing Onset: Yesterday Context: Sudden Onset Timing: Continuous Quality: Pain Location: Flanks bilaterally Current Severity: Mild Maximum Severity: Moderate Worsened by: CVA tenderness Relieved by: Nothing Associated Symptoms Associated Symptoms: Frequency Narrative Narrative: Patient is a 65-year-old woman with multiple medical problems who presents with frequency that started last evening. She reports bilateral flank pain. He does report nausea without vomiting or diarrhea. She denies fever or chills. She denies headache. She denies visual, ocular auditory symptoms. She denies upper respiratory symptoms. She denies vaginal bleeding. She states her last urinary tract infection was 2 to 3 months ago. 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 Cervical spinal stenosis Chronic back pain Chronic systolic (congestive) heart failure Closed right tibial fracture COPD (chronic obstructive pulmonary disease) Diabetes mellitus type 2 in nonobese Essential (primary) hypertension History of ST elevation myocardial infarction (STEMI) IBS (irritable bowel syndrome) Irritable bowel syndrome with diarrhea Ischemic cardiomyopathy Left ventricular hypertrophy Major depression Multiple sclerosis Nicotine abuse BRYAN (obstructive sleep apnea) Osteoporosis Pain of right lower extremity Paroxysmal atrial fibrillation RLS (restless legs syndrome) Suicidal ideation Tachycardia Takotsubo syndrome Vitamin B12 deficiency Home Medications albuterol sulfate 2 puff INHALATION Q6H PRN PRN 10/23/17 [History Last Taken 06/08/19] conj estrog-medroxyprogest raquel 1 tablet PO DAILY 09/20/19 [History Last Taken 08/14/20 09:00] teriflunomide 14 mg PO DAILY 09/20/19 [History Last Taken 08/14/20 09:00] modafinil 200 mg PO DAILY 12/12/19 [History Last Taken 08/14/20 09:00] pioglitazone 30 mg PO DAILY 12/25/19 [History Last Taken 12/25/19 21:00] dicyclomine 20 mg tablet 20 mg PO BID PRN #180 tablet 03/15/20 [Rx Last Taken 08/14/20 13:00] acetaminophen 1,000 mg PO TID PRN #1 tablet 07/29/20 [Rx Last Taken Unknown] blood sugar diagnostic #100 each 08/10/20 [Rx Last Taken Unknown] blood-glucose meter #1 each 08/10/20 [Rx Last Taken Unknown] ascorbic acid (vitamin C) 500 mg PO DAILY #30 tab.chew 08/17/20 [Rx Last Taken Unknown] ferrous sulfate 325 mg PO DAILY #30 tablet 08/17/20 [Rx Last Taken Unknown] glimepiride 4 mg PO BID #0 08/17/20 [Rx Last Taken 08/14/20 09:00] atorvastatin 40 mg tablet 40 mg PO DAILY #30 tab 09/18/20 [Rx Last Taken Unknown] cholecalciferol (vitamin D3) 25 mcg (1,000 unit) capsule 50 mcg PO DAILY cap 09/18/20 [History Last Taken Unknown] mirabegron 25 mg tablet,extended release 24 hr 100 mg PO Q24H tab 09/18/20 [History Last Taken Unknown] nitroglycerin 0.4 mg sublingual tablet 0.4 mg SL ONCE #25 tablet 09/18/20 [Rx Last Taken Unknown] pantoprazole 40 mg tablet,delayed release 40 mg PO DAILY #30 tablet 09/18/20 [Rx Last Taken Unknown] potassium chloride 20 mEq tablet,extended release 20 meq PO DAILY 09/18/20 [History Last Taken Unknown] acidophilus-pectin, citrus 1 cap PO DAILY 09/23/20 [History Last Taken Unknown] donepezil 10 mg tablet 20 mg PO DAILY #180 tab 10/02/20 [Rx Last Taken Unknown] isosorbide mononitrate 30 mg tablet,extended release 24 hr 30 mg PO BID #60 tab 10/08/20 [Rx Last Taken Unknown] diclofenac potassium 50 mg PO BID #20 tab 11/12/20 [Rx Last Taken Unknown] carvedilol 12.5 mg tablet 12.5 mg PO BID #60 tab 11/30/20 [Rx Last Taken Unknown] duloxetine 30 mg capsule,delayed release 30 mg PO BID #60 cap 12/05/20 [Rx Last Taken Unknown] hydroxyzine HCl 50 mg tablet 50 mg PO TID #90 tab 12/20/20 [Rx Last Taken Unknown] calcium carbonate 600 mg calcium (1,500 mg) tablet 600 mg PO BID #180 tab 12/25/20 [Rx Last Taken Unknown] denosumab 60 mg/mL subcutaneous syringe 60 mg SUBCUT [id number] #1 ml 12/25/20 [Rx Last Taken Unknown] lisinopril 10 mg tablet 10 mg PO DAILY #90 tab 12/25/20 [Rx Last Taken Unknown] ondansetron 8 mg disintegrating tablet 8 mg PO Q12H PRN #30 tab 12/25/20 [Rx Last Taken Unknown] tizanidine 2 mg tablet 2 mg PO QHS PRN #30 tab 12/25/20 [Rx Last Taken Unknown] sucralfate 1 gram tablet 1 g PO 4X/DAY #120 tablet 12/28/20 [Rx Last Taken Unknown] cephalexin 500 mg PO Q6 #40 capsule 01/06/21 [Rx Last Taken Unknown] ropinirole 1 mg PO BID 01/06/21 [History Last Taken Unknown] Allergy/AdvReac Type Severity Reaction Status Date / Time indomethacin [From Indocin] Allergy Hives Verified 01/06/21 09:16 indomethacin sodium Allergy Hives Verified 01/06/21 09:16 [From Indocin] iodine Allergy Hives Verified 01/06/21 09:16 propoxyphene napsylate Allergy Out of Verified 01/06/21 09:16 [From Darvocet-N] control aripiprazole [From Abilify] AdvReac Other Verified 01/06/21 09:16 aspirin AdvReac Upset Verified 01/06/21 09:16 Stomach clindamycin AdvReac Nausea Verified 01/06/21 09:16 metformin AdvReac Other Verified 01/06/21 09:16 sumatriptan [From Imitrex] AdvReac Vomiting Verified 01/06/21 09:16 Family History Father Cancer Lung cancer Mother Cancer Pancreatic cancer Surgical History History of amputation of left great toe History of back surgery History of cervical discectomy History of coronary artery stent placement (04/08/16) History of left heart catheterization (09/25/20) History of left knee surgery History of loop recorder (06/2014) History of tonsillectomy and adenoidectomy Social History household members: none Smoking Status: Current every day smoker tobacco type: cigarettes alcohol intake: never substance use type: does not use caffeine: Yes Type: coffee Number of servings: 1 what type of physical activity do you participate in: none and other details: Physical Therapy ROS ROS ED Constitutional Constitutional ED: Denies chills, fever(s), subjective or sweats Eyes Eyes: Denies blurry vision, change in vision or diplopia ENT ENT ED: Denies ear pain, rhinorrhea or sore throat Cardiovascular Cardiovascular: Denies chest pain, orthopnea, palpitations or paroxysmal nocturnal dyspnea Respiratory/Chest Respiratory/Chest: Reports cough; Denies dyspnea, dyspnea on exertion, orthopnea, paroxysmal nocturnal dyspnea or sputum Gastrointestinal Gastrointestinal: Reports nausea; Denies abdominal pain, constipation, diarrhea or vomiting Genitourinary Genitourinary ED: Reports hematuria and urinary frequency; Denies dysuria Musculoskeletal Musculoskeletal: Reports back pain; Denies arthralgias, myalgias or neck pain Integumentary Denies rash Neurologic Neurologic: Reports weakness; Denies headache(s) Endocrine Endocrinology: Denies polydipsia, polyphagia or polyuria Allergic/Immunologic Allergic/Immunologic ED: Denies urticaria EXAM Physical Exam Const Vital Signs: 01/06/21 09:12 01/06/21 09:14 Temperature 98.0 F 98.0 F Temperature Source Oral Oral Pulse Rate 72 70 Respiratory Rate 16 16 Blood Pressure 141/91 H 141/91 H Blood Pressure Mean 107 107 Pulse Ox 97 97 Oxygen Delivery Method Room Air Room Air Positive well nourished, well developed and unkempt General Appearance ED: unkempt, well developed and NAD HEENT Reports TM's clear and moist mucous membranes HEENT Narrative: Nares patent. Ears normal. Head atraumatic normocephalic. Tympanic Membrane ED: Yes TM's clear Eyes PERRL and EOMs intact bilaterally General Eye ED: Negative for pale conjunctiva or scleral icterus Neck no lymphadenopathy, supple and no JVD Chest Wall palpation of chest normal Resp normal respiratory effort and clear to auscultation bilaterally Cardio regular rate, regular rhythm, S1 normal heart sound, S2 normal heart sound and no murmurs GI normal to inspection, nondistended, normoactive bowel sounds, non-distended and no masses; Negative for non-tender Inspection: Negative for abdominal distention Auscultation: hypoactive bowel sounds; Negative for normoactive bowel sounds Palpation: soft and tender other (Suprapubic) Back/Spine General Back: CVA tenderness bilateral Cervical Spine: Negative for cervical spine tenderness Thoracic Spine / Upper Back: Negative for thoracic spinal tenderness or paraspinal muscle tenderness Extremity normal to inspection General Extremety ED: Negative for edema or tenderness General Extremity: Negative for edema Neuro oriented x3 and CN's II-XII intact bilaterally Sensorium / Orientation: alert Motor Exam: strength 5/5 throughout Psych mental status grossly normal Appearance: unkempt and other Affect is flat Skin no rashes or lesions noted MDM MDM MDM Narrative Medical decision making narrative: Suspect patient has urinary tract infection. Be unlikely that she has pyelonephritis bilaterally. She does report hematuria. Review of her meds indicates she is not on an anticoagulant at the present time. CBC was obtained to obtain white count and H&H. Electrolyte panel to assess glucose and she is diabetic and renal function. Patient was treated with Zofran for her nausea and morphine for her pain. Lab Data Attestation: I reviewed the patient's lab results. Labs: Laboratory Results - last 24 hr 01/06/21 01/06/21 01/06/21 10:05 10:05 10:05 WBC 7.4 RBC 4.63 Hgb 12.5 Hct 41.6 MCV 89.8 MCH 27.0 MCHC 30.0 L RDW Std Deviation 50.7 H RDW Coeff of [place] 15.5 H Plt Count 237 MPV 9.6 Immature Gran % (Auto) 0.300 Neut % (Auto) 65.0 Lymph % (Auto) 19.9 Lamb % (Auto) 9.1 Eos % (Auto) 4.5 Baso % (Auto) 1.2 H Absolute Neuts (auto) 4.8 Absolute Lymphs (auto) 1.46 Nucleated RBC % 0 Sodium 135 L Potassium 4.1 Chloride 103 Carbon Dioxide 25.0 Anion Gap 7 BUN 15 Creatinine 0.72 Estim Creat Clear Calc 49.80 Est GFR (MDRD) Af Amer 104 Est GFR (MDRD) Non-Af 86 BUN/Creatinine Ratio 20.7 H Glucose 205 H Calcium 9.3 Urine Color Yellow Urine Clarity Clear Urine pH 5.0 Ur Specific [place] 1.015 Urine Protein 30 H Urine Glucose (UA) Normal Urine Ketones Negative Urine Occult Blood Negative Urine Nitrite Negative Urine Bilirubin Negative Urine Urobilinogen Normal Ur Leukocyte Esterase 25 H Urine RBC 0 SEEN Urine WBC 0-5 SEEN Ur Squamous Epith Cells 5-10 SEEN Urine Bacteria 2+ Urine Mucus 0 SEEN White count is normal. Electrolyte panel is normal. Urine is suggestive/consistent with infection. Culture was sent. She was treated with ciprofloxacin. Discharge Plan Triage Chief Complaint: Complaint ED Provider: Michael Alford Dx/Rx/DC Orders Clinical Impression: Acute pyelonephritis Instructions: ED Pyelonephritis, Female (Adult) Prescriptions: New cephalexin 500 mg capsule 500 mg PO Q6 Qty: 40 RF: 0 No Action dicyclomine 20 mg tablet 20 mg PO BID PRN (Reason: abdominal discomfort) Qty: 180 RF: 2 potassium chloride 20 mEq tablet extended release 20 meq PO DAILY RF: 0 Myrbetriq 25 mg tablet extended release 24 hr 100 mg PO Q24H RF: 0 cholecalciferol (vitamin D3) 25 mcg (1,000 unit) capsule 50 mcg PO DAILY RF: 0 nitroglycerin 0.4 mg tablet, sublingual 0.4 mg SL ONCE Qty: 25 RF: 3 isosorbide mononitrate 30 mg tablet extended release 24 hr 30 mg PO BID Qty: 60 RF: 11 donepezil [Aricept] 10 mg tablet 20 mg PO DAILY Qty: 180 RF: 1 lisinopril 10 mg tablet 10 mg PO DAILY Qty: 90 RF: 3 calcium carbonate 600 mg calcium (1,500 mg) tablet 600 mg PO BID Qty: 180 RF: 1 Prolia 60 mg/mL syringe 60 mg subcut [id number] Qty: 1 RF: 1 ondansetron 8 mg tablet,disintegrating 8 mg PO Q12H PRN (Reason: nausea and vomiting) Qty: 30 RF: 1 tizanidine 2 mg tablet 2 mg PO QHS PRN (Reason: muscle spasticity) Qty: 30 RF: 0 albuterol sulfate 1 INHALER inhaler 2 puff INHALATION Q6H PRN PRN (Reason: Sob &/Or Wheezing) RF: 0 conj estrog-medroxyprogest raquel 1 TAB tablet 1 tablet PO DAILY RF: 0 teriflunomide 14 mg tablet 14 mg PO DAILY RF: 0 modafinil 200 MG tablet 200 mg PO DAILY RF: 0 pioglitazone 30 MG tablet 30 mg PO DAILY RF: 0 acetaminophen 500 MG tablet 1,000 mg PO TID PRN (Reason: pain -02/03) Qty: 1 RF: 0 ferrous sulfate 325 MG tablet 325 mg PO DAILY Qty: 30 RF: 2 ascorbic acid (vitamin C) 500 MG tablet,chewable 500 mg PO DAILY Qty: 30 RF: 0 glimepiride 4 MG tablet 4 mg PO BID Qty: 0 RF: 0 acidophilus-pectin, citrus 100 million cell-10 mg Capsule 1 cap PO DAILY RF: 0 diclofenac potassium 50 mg tablet 50 mg PO BID Qty: 20 RF: 0 ropinirole 1 mg tablet 1 mg PO BID RF: 0 (DME) blood-glucose meter [Accu-Chek Ada Plus Meter] Misc See Rx Instructions .ROUTE .MEDSUPPLY Qty: 1 RF: 0 (DME) Accu-Chek Ada Plus test strp Strip See Rx Instructions .ROUTE .MEDSUPPLY Qty: 100 RF: 3 pantoprazole 40 mg tablet,delayed release (DR/EC) 40 mg PO DAILY Qty: 30 RF: 11 atorvastatin 40 mg tablet 40 mg PO DAILY Qty: 30 RF: 11 carvedilol 12.5 mg tablet 12.5 mg PO BID Qty: 60 RF: 11 duloxetine [Cymbalta] 30 mg capsule,delayed release(DR/EC) 30 mg PO BID Qty: 60 RF: 2 hydroxyzine HCl 50 mg tablet 50 mg PO TID Qty: 90 RF: 2 sucralfate 1 gram tablet 1 g PO 4X/DAY Qty: 120 RF: 1 Primary Care Provider: Tom Sherman Referrals: Tom Sherman MD [Primary Care Provider] - 3-5 Days Disposition Disposition: Home, Self Care
[2021-01-06] MEDS: Ondansetron 4 MG/2 ML Vial IV (10:11)
[2021-01-06] MEDS: 0.9% Normal Saline 1,000 ML 1000 ML IV (10:11)
[2021-01-06] MEDS: Morphine 4 MG/ML Syringe IV (10:11)
[2021-01-06 10:13] LABS: Mucous, Urine 0 SEEN /hpf (<or=2+); Red Blood Cells-Urine 0 SEEN /hpf (0-5)
[2021-01-06 10:19] LABS: Absolute Lymphocyte Count 1.46 X10^3/uL (0.83-4.51); Absolute Neutrophil Count 4.8 X10^3/uL (2.0-7.7); Basophil# 0.09 X10^3/uL; Basophil% 1.2 % (0-1); Eosinophil# 0.33 X10^3/uL; Eosinophils% 4.5 % (0-5); Hematocrit 41.6 % (37-47); Hemoglobin 12.5 g/dL (12.0-15.0); Lymphocyte # 1.46 X10^3/ul (0.83-4.51); Lymphocyte % 19.9 % (19-41); Mean Corpuscular Volume 89.8 fL (81-99); Mean Platelet Vol. 9.6 fl (6.2-12.0); Monocyte# 0.67 X10^3/uL; Monocyte% 9.1 % (0-10); NRBC Flagged by Analyzer 0 % (0-5); Neutrophil # 4.78 X10^3/uL (2.7-7.7); Platelet Count 237 K/mm3 (150-450); RBC Distribution Width CV 15.5 % (11.6-14.6); RBC Distribution Width SD 50.7 fl (35.1-43.9); Red Blood Count 4.63 M/mm3 (4.2-5.4); White Blood Count 7.4 K/mm3 (4.4-11.0)
[2021-01-06 10:26] LABS: Color, Urine Yellow (Yellow); Glucose, Dipstick Normal (Normal); Ketone-Dipstick Negative (Negative); Leukocyte Esterase-Dipstick 25 /ul (Negative); Nitrite-Dipstick Negative (Negative); Occult Blood-Urine Negative /ul (Negative); Protein-Dipstick 30 mg/dl (Negative); Specific Gravity, Urine 1.015 (1.002-1.030); Urine Bilirubin Dipstick Negative (Negative); Urine Clarity Clear (Clear); Urine Urobilinogen Normal (Normal)
[2021-01-06 10:27] LABS: Anion Gap 7 (5-15); BUN 15 mg/dL (7-18); BUN/Creat Ratio 20.7 RATIO (10-20); Calcium,Total 9.3 mg/dL (8.5-10.1); Chloride 103 mmol/L (98-107); Creatinine, Serum 0.72 mg/dL (0.55-1.02); EST Glomerular Filtration Rate 86 mL/min (>60); Est Glom Filt Rate - Afr Amer 104 mL/min (>60); Glucose 205 mg/dL (74-106); Potassium 4.1 mmol/L (3.5-5.1); Sodium Level 135 mmol/L (136-145)
[2021-01-06 10:46] LABS: Bacteria 2+ /hpf (None Seen); Squamous Epithelial Cells - UA 5-10 SEEN /hpf (5-10); White Blood Cells 0-5 SEEN /hpf (0-5)
[2021-01-06] MEDS: Cephalexin 250 MG Capsule 500 MG PO (12:02)
[2021-01-06] MEDS: Ciprofloxacin 500 MG Tablet PO (12:02)
[2021-01-06 12:10] VITALS: BP 137/74; PULSE 85; RESP 16; O2SAT 97
== END 2021-01-06 12:10 | disposition home or self-care (01) ==
PROVIDERS: Emergency Provider Emergency Medicine; PCP Internal Medicine
DX: N10 Acute pyelonephritis (principal); I25.10 Atherosclerotic heart disease of native coronary artery without angina pectoris; I25.5 Ischemic cardiomyopathy; I11.0 Hypertensive heart disease with heart failure; I50.22 Chronic systolic (congestive) heart failure; I25.2 Old myocardial infarction; J44.9 Chronic obstructive pulmonary disease, unspecified; I48.0 Paroxysmal atrial fibrillation; G35 Multiple sclerosis; E11.9 Type 2 diabetes mellitus without complications; M81.0 Age-related osteoporosis without current pathological fracture; F32.9 Major depressive disorder, single episode, unspecified; F41.9 Anxiety disorder, unspecified; F17.210 Nicotine dependence, cigarettes, uncomplicated; Z79.82 Long term (current) use of aspirin; Z79.84 Long term (current) use of oral hypoglycemic drugs; Z79.899 Other long term (current) drug therapy; Z87.440 Personal history of urinary (tract) infections
CPT/HCPCS: 80048; 81001; 85025; 96361; 96374; 96375; 99285; J7030; A4216; J2405

== ENCOUNTER 2021-01-10 14:05 | Emergency (ER) | payer MEDICARE, MEDICAID, SELFPAY ==
[2016-07-13 11:45] VITALS: BMI 31.4
[2021-01-10] VITALS (8 sets, daily range): BP systolic 87–130; BP diastolic 45–74; PULSE 58–78; RESP 14–18; TEMP 36.2; O2SAT 97–98; BMI 28.6
--- NOTE | 2021-01-10 15:00 | EKG12_ITS ---
Test Reason : CHEST PAIN Blood Pressure : / mmHG Vent. Rate : 062 BPM Atrial Rate : 062 BPM P-R Int : 134 ms QRS Dur : 082 ms QT Int : 434 ms P-R-T Axes : 028 -50 096 degrees QTc Int : 440 ms Normal sinus rhythm Left axis deviation Low voltage QRS Septal infarct , age undetermined Inferior infarct , age undetermined ST & T wave abnormality, consider anterior ischemia Abnormal ECG Confirmed by ALLAN WITT, DORYS ([id number]), development editor YUNG MUNGUIA ([id number]) on 01/14/2021 10:10:21 AM Referred By: THEODORE Confirmed By:DORYS LEMUS MD
[2021-01-10 15:38] LABS: Absolute Lymphocyte Count 1.52 X10^3/uL (0.83-4.51); Absolute Neutrophil Count 3.6 X10^3/uL (2.0-7.7); Basophil# 0.08 X10^3/uL; Basophil% 1.3 % (0-1); Eosinophil# 0.27 X10^3/uL; Eosinophils% 4.5 % (0-5); Hematocrit 40.4 % (37-47); Hemoglobin 12.5 g/dL (12.0-15.0); Lymphocyte # 1.52 X10^3/ul (0.83-4.51); Lymphocyte % 25.2 % (19-41); Mean Corp Hgb Conc 30.9 g/dL (32-36); Mean Corpuscular Hgb 27.4 pg (27.0-32.0); Mean Corpuscular Volume 88.4 fL (81-99); Monocyte# 0.55 X10^3/uL; Monocyte% 9.1 % (0-10); NRBC Flagged by Analyzer 0 % (0-5); Neutrophil % 59.7 % (47-70); Platelet Count 244 K/mm3 (150-450); RBC Distribution Width CV 15.9 % (11.6-14.6); Red Blood Count 4.57 M/mm3 (4.2-5.4)
[2021-01-10 15:52] LABS: ALB/GLOB Ratio 0.8 RATIO (0.9-2.4); AST(SGOT) 16 U/L (15-37); Alanine Aminotransfer ALT/SGPT 19 U/L (13-56); Albumin, Serum 2.8 g/dL (3.2-5.0); Alkaline Phosphatase 98 U/L (45-117); Anion Gap 6 (5-15); BUN 17 mg/dL (7-18); BUN/Creat Ratio 22.3 RATIO (10-20); Calcium,Total 9.1 mg/dL (8.5-10.1); Chloride 105 mmol/L (98-107); Creatinine, Serum 0.76 mg/dL (0.55-1.02); EST Glomerular Filtration Rate 81 mL/min (>60); Est Glom Filt Rate - Afr Amer 98 mL/min (>60); Estimated Creatinine Clearance 47.79 ml/min; Globulin 3.4 g/dL (2.2-4.2); Glucose 242 mg/dL (74-106); Potassium 4.2 mmol/L (3.5-5.1); Protein, Total 6.2 g/dL (6.4-8.2); Sodium Level 136 mmol/L (136-145); Troponin-I HS 16 pg/mL (3.0-54.0)
--- NOTE | 2021-01-10 16:27 | CT_ITS ---
STUDY: CTA CHEST REASON FOR EXAM: Female, 65 years old. Chest pain. Shortness of breath. RADIATION DOSAGE (If Supplied By Facility): CTDIvol = ( 16.70 ) mGy, DLP = ( 1519.51 ) mGycm TECHNIQUE: The examination was performed with the intravenous administration of IV 100mL Isovue-370. Post-processing of the angiographic images was performed, with multiplanar reformation and 3D reconstruction. Individualized dose optimization techniques were used for this CT. COMPARISON: Chest, 01/10/2021. FINDINGS: Normal enhancement of the main pulmonary artery and right and left pulmonary arteries. Normal enhancement of the bilateral peripheral pulmonary arteries. There is no demonstrated pulmonary embolism. Atherosclerotic tortuosity of thoracic aorta without aneurysm. There is no demonstrated aortic dissection. Normal heart and pericardium. Normal mediastinum. Normal hilar regions. Normal visualized trachea and bronchi. The lungs are well expanded. Normal pulmonary parenchyma. Normal pleura. Normal chest wall structures. There is an implantable device in the soft tissues overlying the left heart. There are degenerative changes of thoracic spine. Normal visualized upper abdomen. CT/CTA Chest W/WO Contrast IMPRESSION: Normal CTA chest examination, without a demonstrated pulmonary embolism or arterial dissection. Electronically Signed: Casey Dominguez DO at 19:43 EDT Tel [phone], Service support ,
--- NOTE | 2021-01-10 16:29 | CT_ITS ---
STUDY: CT ABDOMEN AND PELVIS WITH CONTRAST REASON FOR EXAM: Female, 65 years old. Right flank pain. RADIATION DOSAGE (If Supplied By Facility): CTDIvol = ( 16.70 ) mGy, DLP = ( 1519.51 ) mGycm TECHNIQUE: Transaxial images were obtained from the dome of the diaphragm to the symphysis pubis without oral contrast. IV 100mL Isovue-370 was administered. Sagittal and coronal images were reconstructed. Individualized dose optimization techniques were used for this CT. COMPARISON: 11/17/2020. FINDINGS: The visualized lung bases are unremarkable. The visualized portions of the heart are within normal limits. Normal liver. Mild intra and extrahepatic biliary ductal dilatation without filling defect. Normal gallbladder. Normal spleen. Normal pancreas. Normal bilateral adrenal glands. Normal right kidney. Normal left kidney. Normal visualized stomach. Mildly distended fluid-filled small bowel loops without mass or obstruction. Feces is seen throughout the colon without mass or obstruction. There are scattered sigmoid diverticuli. The appendix is visualized and appears normal. There is diffuse atherosclerotic calcification of the abdominal aorta, without a demonstrated aneurysm. Normal inferior vena cava. Normal retroperitoneum. Normal urinary bladder. Is a small calcified fibroid along the anterior aspect of the uterine fundus. Normal adnexa. There is no pelvic lymphadenopathy. No free air or free fluid seen within the peritoneal cavity. Normal abdominal wall. There are diffuse degenerative changes of the visualized lumbar spine. CT/Abdomen/Pelvis W IV Cont ONLY IMPRESSION: 1. No evidence of renal, ureteral or urinary bladder abnormality. 2. Increased colonic feces suggesting constipation. 3. No major interval change from prior study Electronically Signed: Casey Dominguez DO at 19:47 EDT Tel [phone], Service support ,
--- NOTE | 2021-01-10 16:32 | RAD_ITS ---
STUDY: X-RAY CHEST REASON FOR EXAM: Female, 65 years old. CP TECHNIQUE: Single AP portable view of the chest. COMPARISON: 12/11/2020 FINDINGS: The lungs are clear and expanded. There is no demonstrated pleural abnormality. Normal size heart. Normal mediastinum and sara. Normal visualized pulmonary arteries. Normal visualized aortic arch and descending thoracic aorta. Levoscoliosis of lower thoracic spine. Normal visualized ribs, clavicles, and shoulders. There is no demonstrated abnormality of the visualized soft tissue structures of the upper abdomen. RAD/Chest 1 View IMPRESSION: Normal x-ray examination of the chest. Electronically Signed: Armando Taylor MD at 16:46 EDT Tel , Service support ,
[2021-01-10 16:54] LABS: AST(SGOT) 18 U/L (15-37); Alanine Aminotransfer ALT/SGPT 19 U/L (13-56); Albumin, Serum 2.8 g/dL (3.2-5.0); Alkaline Phosphatase 98 U/L (45-117); Globulin 3.4 g/dL (2.2-4.2); Protein, Total 6.2 g/dL (6.4-8.2)
[2021-01-10] MEDS: Ondansetron 4 MG/2 ML Vial IV (16:58)
[2021-01-10] MEDS: Morphine 4 MG/ML Syringe IV ×2 (16:58→19:43)
[2021-01-10] MEDS: DiphenhydrAMINE 50 MG/ML Syringe IV (16:58)
[2021-01-10 19:46] LABS: Bacteria 0 SEEN /hpf (None Seen); Mucous, Urine 0 SEEN /hpf (<or=2+); Red Blood Cells-Urine 0 SEEN /hpf (0-5); Squamous Epithelial Cells - UA 0 SEEN /hpf (5-10); White Blood Cells 0 SEEN /hpf (0-5)
[2021-01-10 19:51] LABS: Color, Urine Yellow (Yellow); Glucose, Dipstick Normal (Normal); Ketone-Dipstick Negative (Negative); Leukocyte Esterase-Dipstick Negative /ul (Negative); Nitrite-Dipstick Negative (Negative); Occult Blood-Urine Negative /ul (Negative); Protein-Dipstick Negative (Negative); Specific Gravity, Urine 1.015 (1.002-1.030); Urine Bilirubin Dipstick Negative (Negative); Urine Clarity Clear (Clear); Urine Urobilinogen Normal (Normal)
--- NOTE | 2021-01-10 21:17 | ED.VIS.CHEST ---
HPI History of Present Illness Chief Complaint: Chest Pain Informant: patient Narrative Narrative: Patient is a 65-year-old female presenting with right-sided flank pain as well as chest pain. Patient states this morning she noticed that her right side was killing her and she was having chest pain. She called EMS and her blood pressure was 170/110. At that time she did not want to come to the ER so she stayed home and declined transport. She took a nap and when she woke up she was continued pain and noticed that she was urinating blood. She had increased pain in her right flank and her chest so she called EMS again and came to the emergency room. She denies any shortness of breath, dyspnea on exertion, cough or fever. She was seen in the ER 4 days ago and diagnosed with pyelonephritis. She started on antibiotics. Patient dates she does have a history of a blood clot. She is not currently on any anticoagulation. No other complaints at this time. 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 Cervical spinal stenosis Chronic back pain Chronic systolic (congestive) heart failure Closed right tibial fracture COPD (chronic obstructive pulmonary disease) Diabetes mellitus type 2 in nonobese Essential (primary) hypertension History of ST elevation myocardial infarction (STEMI) IBS (irritable bowel syndrome) Irritable bowel syndrome with diarrhea Ischemic cardiomyopathy Left ventricular hypertrophy Major depression Multiple sclerosis Nicotine abuse BRYAN (obstructive sleep apnea) Osteoporosis Pain of right lower extremity Paroxysmal atrial fibrillation RLS (restless legs syndrome) Suicidal ideation Tachycardia Takotsubo syndrome Vitamin B12 deficiency Home Medications albuterol sulfate 2 puff INHALATION Q6H PRN PRN 10/23/17 [History Last Taken 06/08/19] teriflunomide 14 mg PO DAILY 09/20/19 [History Last Taken 08/14/20 09:00] modafinil 200 mg PO DAILY 12/12/19 [History Last Taken 08/14/20 09:00] dicyclomine 20 mg tablet 20 mg PO BID PRN #180 tablet 03/15/20 [Rx Last Taken 08/14/20 13:00] acetaminophen 1,000 mg PO TID PRN #1 tablet 07/29/20 [Rx Last Taken Unknown] blood sugar diagnostic #100 each 08/10/20 [Rx Last Taken Unknown] blood-glucose meter #1 each 08/10/20 [Rx Last Taken Unknown] ascorbic acid (vitamin C) 500 mg PO DAILY #30 tab.chew 08/17/20 [Rx Last Taken Unknown] ferrous sulfate 325 mg PO DAILY #30 tablet 08/17/20 [Rx Last Taken Unknown] glimepiride 4 mg PO BID #0 08/17/20 [Rx Last Taken 08/14/20 09:00] atorvastatin 40 mg tablet 40 mg PO DAILY #30 tab 09/18/20 [Rx Last Taken Unknown] cholecalciferol (vitamin D3) 25 mcg (1,000 unit) capsule 50 mcg PO DAILY cap 09/18/20 [History Last Taken Unknown] mirabegron 25 mg tablet,extended release 24 hr 100 mg PO Q24H tab 09/18/20 [History Last Taken Unknown] nitroglycerin 0.4 mg sublingual tablet 0.4 mg SL ONCE #25 tablet 09/18/20 [Rx Last Taken Unknown] pantoprazole 40 mg tablet,delayed release 40 mg PO DAILY #30 tablet 09/18/20 [Rx Last Taken Unknown] acidophilus-pectin, citrus 1 cap PO DAILY 09/23/20 [History Last Taken Unknown] donepezil 10 mg tablet 20 mg PO DAILY #180 tab 10/02/20 [Rx Last Taken Unknown] isosorbide mononitrate 30 mg tablet,extended release 24 hr 30 mg PO BID #60 tab 10/08/20 [Rx Last Taken Unknown] diclofenac potassium 50 mg PO BID #20 tab 11/12/20 [Rx Last Taken Unknown] carvedilol 12.5 mg tablet 12.5 mg PO BID #60 tab 11/30/20 [Rx Last Taken Unknown] duloxetine 30 mg capsule,delayed release 30 mg PO BID #60 cap 12/05/20 [Rx Last Taken Unknown] hydroxyzine HCl 50 mg tablet 50 mg PO TID #90 tab 12/20/20 [Rx Last Taken Unknown] calcium carbonate 600 mg calcium (1,500 mg) tablet 600 mg PO BID #180 tab 12/25/20 [Rx Last Taken Unknown] denosumab 60 mg/mL subcutaneous syringe 60 mg SUBCUT D6OIQUEC #1 ml 12/25/20 [Rx Last Taken Unknown] lisinopril 10 mg tablet 10 mg PO DAILY #90 tab 12/25/20 [Rx Last Taken Unknown] ondansetron 8 mg disintegrating tablet 8 mg PO Q12H PRN #30 tab 12/25/20 [Rx Last Taken Unknown] tizanidine 2 mg tablet 2 mg PO QHS PRN #30 tab 12/25/20 [Rx Last Taken Unknown] sucralfate 1 gram tablet 1 g PO 4X/DAY #120 tablet 12/28/20 [Rx Last Taken Unknown] cephalexin 500 mg PO Q6 #40 capsule 01/06/21 [Rx Last Taken Unknown] ropinirole 1 mg PO BID 01/06/21 [History Last Taken Unknown] conj estrogen-medroxyprogesterone 0.625 mg-2.5 mg tablet 1 tab PO DAILY #28 tab 01/09/21 [Rx Last Taken Unknown] pioglitazone 30 mg tablet 30 mg PO DAILY #90 tab 01/09/21 [Rx Last Taken Unknown] potassium chloride 20 mEq tablet,extended release 20 meq PO DAILY #90 tab 01/09/21 [Rx Last Taken Unknown] Allergy/AdvReac Type Severity Reaction Status Date / Time indomethacin [From Indocin] Allergy Hives Verified 01/10/21 14:08 indomethacin sodium Allergy Hives Verified 01/10/21 14:08 [From Indocin] iodine Allergy Hives Verified 01/10/21 14:08 propoxyphene napsylate Allergy Out of Verified 01/10/21 14:08 [From Darvocet-N] control aripiprazole [From Abilify] AdvReac Other Verified 01/10/21 14:08 aspirin AdvReac Upset Verified 01/10/21 14:08 Stomach clindamycin AdvReac Nausea Verified 01/10/21 14:08 metformin AdvReac Other Verified 01/10/21 14:08 sumatriptan [From Imitrex] AdvReac Vomiting Verified 01/10/21 14:08 Family History Father Cancer Lung cancer Mother Cancer Pancreatic cancer Surgical History History of amputation of left great toe History of back surgery History of cervical discectomy History of coronary artery stent placement (04/08/16) History of left heart catheterization (09/25/20) History of left knee surgery History of loop recorder (06/2014) History of tonsillectomy and adenoidectomy Social History household members: none Smoking Status: Current every day smoker tobacco type: cigarettes alcohol intake: never substance use type: does not use caffeine: Yes Type: coffee Number of servings: 1 what type of physical activity do you participate in: none and other details: Physical Therapy ROS ROS ED Constitutional Constitutional ED: Denies chills or fever(s) Eyes Eyes: Reports none ENT ENT ED: Denies ear pain, rhinorrhea or sore throat Cardiovascular Cardiovascular: Reports chest pain; Denies palpitations Respiratory/Chest Respiratory/Chest: Denies cough, dyspnea or dyspnea on exertion Gastrointestinal Gastrointestinal: Denies abdominal pain, constipation, diarrhea, nausea or vomiting Genitourinary Genitourinary ED: Reports hematuria; Denies dysuria Musculoskeletal Musculoskeletal: Reports other Details: right flank pain ; Denies arthralgias or myalgias Integumentary Denies rash Neurologic Neurologic: Denies headache(s) or weakness EXAM Physical Exam Const Vital Signs: 01/10/21 14:05 01/10/21 16:00 01/10/21 16:45 Temperature 97.1 F L Temperature Source Temporal Pulse Rate 68 60 60 Respiratory Rate 16 14 16 Blood Pressure 124/59 H 87/45 L 130/74 H Blood Pressure Mean 80 59 92 Pulse Ox 98 98 98 Oxygen Delivery Method Room Air Room Air Room Air 01/10/21 17:02 01/10/21 17:07 01/10/21 18:59 Temperature Temperature Source Pulse Rate 58 L 63 62 Respiratory Rate 16 14 16 Blood Pressure 130/74 H 128/74 H 118/67 Blood Pressure Mean 92 92 84 Pulse Ox 98 97 97 Oxygen Delivery Method Room Air Room Air Room Air 01/10/21 20:18 01/10/21 21:28 Temperature Temperature Source Pulse Rate 65 78 Respiratory Rate 18 18 Blood Pressure 118/67 111/58 L Blood Pressure Mean 84 Pulse Ox 97 97 Oxygen Delivery Method Room Air Positive well nourished and well developed General Appearance ED: well developed HEENT Reports moist mucous membranes normocephalic and atraumatic Eyes PERRL and EOMs intact bilaterally Neck no lymphadenopathy and supple Chest Wall inspection of chest normal and palpation of chest normal Resp normal respiratory effort Effort and Inspection: respiratory distress Cardio regular rate, regular rhythm and no murmurs GI normal to inspection, nondistended, normoactive bowel sounds Back/Spine General Back: CVA tenderness bilateral (right worse than left ) Extremity normal to inspection Extremity Narrative: right foot in a boot from prior ankle injury General Extremety ED: Negative for edema General Extremity: Negative for edema Neuro oriented x3 Sensorium / Orientation: awake and alert Psych mental status grossly normal Skin no rashes or lesions noted and no wounds MDM MDM MDM Narrative Medical decision making narrative: Patient evaluated for right-sided flank pain can no chest pain. Her chest pain seems to be more muscle skeletal/is pleuritic. She does have a history of DVT and I am concerned she could have a PE as a cause of her pain. EKG does not show any acute ischemic changes. Lab work-up is largely unremarkable. She does not have a leukocytosis or anemia. CMP is unremarkable. Urinalysis is not consistent with infection. Her high sensitive troponin is normal. I do not think this is ACS as a cause of her pain. CT of the chest does not show any acute process. CT of the abdomen pelvis IV contrast does not show any type of renal infarct, pyelonephritis or obstructing stone/hydronephritis. She does have some mild consistent with constipation. Patient is counseled that the exact cause of her pain is not clear however as she can be discharged home. She is instructed take MiraLAX. She is counseled to continue antibiotic she is previously prescribed. Patient is counseled on return precautions. She verbalizes agreement understand this plan. Discharged home in stable condition. Lab Data Attestation: I reviewed the patient's lab results. Labs: Laboratory Results - last 24 hr 01/10/21 01/10/21 01/10/21 15:20 15:20 15:20 WBC 6.0 RBC 4.57 Hgb 12.5 Hct 40.4 MCV 88.4 MCH 27.4 MCHC 30.9 L RDW Std Deviation 52.0 H RDW Coeff of [place] 15.9 H Plt Count 244 MPV 10.0 Immature Gran % (Auto) 0.200 Neut % (Auto) 59.7 Lymph % (Auto) 25.2 [place] % (Auto) 9.1 Eos % (Auto) 4.5 Baso % (Auto) 1.3 H Absolute Neuts (auto) 3.6 Absolute Lymphs (auto) 1.52 Nucleated RBC % 0 Sodium 136 Potassium 4.2 Chloride 105 Carbon Dioxide 25.0 Anion Gap 6 BUN 17 Creatinine 0.76 Estim Creat Clear Calc 47.79 Est GFR (MDRD) Af Amer 98 Est GFR (MDRD) Non-Af 81 BUN/Creatinine Ratio 22.3 H Glucose 242 H Calcium 9.1 Total Bilirubin 0.20 0.20 Direct Bilirubin 0.10 AST 16 18 ALT 19 19 Alkaline Phosphatase 98 98 Troponin I High Sens 16 Total Protein 6.2 L 6.2 L Albumin 2.8 L 2.8 L Globulin 3.4 3.4 Albumin/Globulin Ratio 0.8 L Urine Color Urine Clarity Urine pH Ur Specific [place] Urine Protein Urine Glucose (UA) Urine Ketones Urine Occult Blood Urine Nitrite Urine Bilirubin Urine Urobilinogen Ur Leukocyte Esterase Urine RBC Urine WBC Ur Squamous Epith Cells Urine Bacteria Urine Mucus 01/10/21 19:36 WBC RBC Hgb Hct MCV MCH MCHC RDW Std Deviation RDW Coeff of [place] Plt Count MPV Immature Gran % (Auto) Neut % (Auto) Lymph % (Auto) [place] % (Auto) Eos % (Auto) Baso % (Auto) Absolute Neuts (auto) Absolute Lymphs (auto) Nucleated RBC % Sodium Potassium Chloride Carbon Dioxide Anion Gap BUN Creatinine Estim Creat Clear Calc Est GFR (MDRD) Af Amer Est GFR (MDRD) Non-Af BUN/Creatinine Ratio Glucose Calcium Total Bilirubin Direct Bilirubin AST ALT Alkaline Phosphatase Troponin I High Sens Total Protein Albumin Globulin Albumin/Globulin Ratio Urine Color Yellow Urine Clarity Clear Urine pH 6.0 Ur Specific [place] 1.015 Urine Protein Negative Urine Glucose (UA) Normal Urine Ketones Negative Urine Occult Blood Negative Urine Nitrite Negative Urine Bilirubin Negative Urine Urobilinogen Normal Ur Leukocyte Esterase Negative Urine RBC 0 SEEN Urine WBC 0 SEEN Ur Squamous Epith Cells 0 SEEN Urine Bacteria 0 SEEN Urine Mucus 0 SEEN Radiography Diagnostic Testing: Radiology Impression Chest CTA 01/10/21 16:27 IMPRESSION: Normal CTA chest examination, without a demonstrated pulmonary embolism or arterial dissection. Electronically Signed: Casey Dominguez DO at 19:43 EDT Tel [phone], Service support , Abdomen/Pelvis CT 01/10/21 16:29 IMPRESSION: 1. No evidence of renal, ureteral or urinary bladder abnormality. 2. Increased colonic feces suggesting constipation. 3. No major interval change from prior study Electronically Signed: Casey Dominguez DO at 19:47 EDT Tel [phone], Service support , Chest X-Ray 01/10/21 16:32 IMPRESSION: Normal x-ray examination of the chest. Electronically Signed: Armando Taylor MD at 16:46 EDT Tel , Service support , Rhythm Strip Rhythm Strip: Sinus Rhythm Rate: 62 Ectopy: None EKG Initial EKG: Attestation: I personally reviewed and interpreted this EKG as follows: Interpretation: Sinus Rhythm Comments: Normal sinus rhythm rate of 62 Left axis deviation Low voltage QRS T wave inversion in V2 through V4 with no reciprocal changes Normal ST segments Discharge Plan Triage Chief Complaint: Chest Pain ED Provider: Gin Carballo Dx/Rx/DC Orders Clinical Impression: Acute right flank pain, Chest pain of uncertain etiology Instructions: ED Chest Pain, Uncertain Cause, ED Flank Pain, Uncertain Cause Prescriptions: No Action dicyclomine 20 mg tablet 20 mg PO BID PRN (Reason: abdominal discomfort) Qty: 180 RF: 2 Myrbetriq 25 mg tablet extended release 24 hr 100 mg PO Q24H RF: 0 cholecalciferol (vitamin D3) 25 mcg (1,000 unit) capsule 50 mcg PO DAILY RF: 0 nitroglycerin 0.4 mg tablet, sublingual 0.4 mg SL ONCE Qty: 25 RF: 3 isosorbide mononitrate 30 mg tablet extended release 24 hr 30 mg PO BID Qty: 60 RF: 11 donepezil [Aricept] 10 mg tablet 20 mg PO DAILY Qty: 180 RF: 1 lisinopril 10 mg tablet 10 mg PO DAILY Qty: 90 RF: 3 calcium carbonate 600 mg calcium (1,500 mg) tablet 600 mg PO BID Qty: 180 RF: 1 Prolia 60 mg/mL syringe 60 mg subcut [id number] Qty: 1 RF: 1 ondansetron 8 mg tablet,disintegrating 8 mg PO Q12H PRN (Reason: nausea and vomiting) Qty: 30 RF: 1 tizanidine 2 mg tablet 2 mg PO QHS PRN (Reason: muscle spasticity) Qty: 30 RF: 0 albuterol sulfate 1 INHALER inhaler 2 puff INHALATION Q6H PRN PRN (Reason: Sob &/Or Wheezing) RF: 0 teriflunomide 14 mg tablet 14 mg PO DAILY RF: 0 modafinil 200 MG tablet 200 mg PO DAILY RF: 0 acetaminophen 500 MG tablet 1,000 mg PO TID PRN (Reason: pain -02/03) Qty: 1 RF: 0 ferrous sulfate 325 MG tablet 325 mg PO DAILY Qty: 30 RF: 2 ascorbic acid (vitamin C) 500 MG tablet,chewable 500 mg PO DAILY Qty: 30 RF: 0 glimepiride 4 MG tablet 4 mg PO BID Qty: 0 RF: 0 acidophilus-pectin, citrus 100 million cell-10 mg Capsule 1 cap PO DAILY RF: 0 diclofenac potassium 50 mg tablet 50 mg PO BID Qty: 20 RF: 0 ropinirole 1 mg tablet 1 mg PO BID RF: 0 cephalexin 500 mg capsule 500 mg PO Q6 Qty: 40 RF: 0 (DME) blood-glucose meter [Accu-Chek Ada Plus Meter] Misc See Rx Instructions .ROUTE .MEDSUPPLY Qty: 1 RF: 0 (DME) Accu-Chek Ada Plus test strp Strip See Rx Instructions .ROUTE .MEDSUPPLY Qty: 100 RF: 3 pantoprazole 40 mg tablet,delayed release (DR/EC) 40 mg PO DAILY Qty: 30 RF: 11 atorvastatin 40 mg tablet 40 mg PO DAILY Qty: 30 RF: 11 carvedilol 12.5 mg tablet 12.5 mg PO BID Qty: 60 RF: 11 duloxetine [Cymbalta] 30 mg capsule,delayed release(DR/EC) 30 mg PO BID Qty: 60 RF: 2 hydroxyzine HCl 50 mg tablet 50 mg PO TID Qty: 90 RF: 2 sucralfate 1 gram tablet 1 g PO 4X/DAY Qty: 120 RF: 1 pioglitazone 30 mg tablet 30 mg PO DAILY Qty: 90 RF: 0 potassium chloride 20 mEq tablet extended release 20 meq PO DAILY Qty: 90 RF: 0 conj estrog-medroxyprogest raquel 0.625-2.5 mg tablet 1 tab PO DAILY Qty: 28 RF: 0 Primary Care Provider: Tom Sherman Referrals: Tom Sherman MD [Primary Care Provider] - Activity Restrictions/Additional Instructions: Your CT showed some constipation but no other acute process. Please start taking [id number] MiraLAX to help with this. The exact cause of your pain is not clear however I think you are safe to follow-up with your primary care doctor. Continue taking antibiotics prescribed. Disposition Disposition: Home, Self Care Discharge Date/Time: 01/10/21 21:28
== END 2021-01-10 21:28 | disposition home or self-care (01) ==
PROVIDERS: Emergency Provider Emergency Medicine; PCP Internal Medicine
DX: R07.9 Chest pain, unspecified (principal); R10.9 Unspecified abdominal pain; I25.10 Atherosclerotic heart disease of native coronary artery without angina pectoris; E11.9 Type 2 diabetes mellitus without complications; J44.9 Chronic obstructive pulmonary disease, unspecified; I11.0 Hypertensive heart disease with heart failure; I50.22 Chronic systolic (congestive) heart failure; I25.5 Ischemic cardiomyopathy; I48.0 Paroxysmal atrial fibrillation; I25.2 Old myocardial infarction; G25.81 Restless legs syndrome; G35 Multiple sclerosis; M81.0 Age-related osteoporosis without current pathological fracture; F32.9 Major depressive disorder, single episode, unspecified; F41.9 Anxiety disorder, unspecified; F17.210 Nicotine dependence, cigarettes, uncomplicated; Z79.82 Long term (current) use of aspirin; Z79.84 Long term (current) use of oral hypoglycemic drugs; Z79.899 Other long term (current) drug therapy; Z86.718 Personal history of other venous thrombosis and embolism
CPT/HCPCS: 71045; 71275; 74177; 80053; 80076; 81001; 84484; 85025; 87077; 87086; 87088; 87186; 87426; 93005; 96374; 96375; 96376; 99285; Q9967; A4216; J2405

== ENCOUNTER 2021-01-20 07:55 | Emergency (ER) | payer MEDICARE, MEDICAID, SELFPAY ==
[2016-07-13 11:45] VITALS: BMI 31.4
[2021-01-20 07:57] VITALS: PULSE 77; RESP 25; TEMP 36.1; O2SAT 96; BMI 32.0
--- NOTE | 2021-01-20 07:59 | EKG12_ITS ---
Test Reason : CP Blood Pressure : / mmHG Vent. Rate : 074 BPM Atrial Rate : 074 BPM P-R Int : 150 ms QRS Dur : 094 ms QT Int : 414 ms P-R-T Axes : 033 -60 082 degrees QTc Int : 459 ms Normal sinus rhythm Left axis deviation Septal infarct , age undetermined Inferior infarct , age undetermined Abnormal ECG Confirmed by ALLAN WITT, DORYS ([id number]), newspaper editor managing YUNG MUNGUIA ([id number]) on 01/23/2021 9:55:40 AM Referred By: FELIX Confirmed By:DORYS LEMUS MD
--- NOTE | 2021-01-20 08:08 | RAD_ITS ---
STUDY: X-RAY CHEST REASON FOR EXAM: Female, 65 years old. chest pain TECHNIQUE: Single AP portable view of the chest. COMPARISON: 01/10/2021 FINDINGS: The lungs are clear and expanded. There is no demonstrated pleural abnormality. Normal size heart. Normal mediastinum and sara. Normal visualized pulmonary arteries. Normal visualized aortic arch and descending thoracic aorta. Normal visualized thoracic spine. Normal visualized ribs, clavicles, and shoulders. There is no demonstrated abnormality of the visualized soft tissue structures of the upper abdomen. RAD/Chest 1 View (Portable) IMPRESSION: Normal x-ray examination of the chest. Electronically Signed: Armando Taylor MD at 9:23 EDT Tel , Service support ,
--- NOTE | 2021-01-20 08:10 | EDS_ITS ---
HPI History of Present Illness Chief Complaint: Chest Pain Narrative Narrative: Patient states that she awoke around 530 this morning with pain in her mid upper abdomen and lower chest. She states she has a history of a gastric ulcer but also of previous heart attack. She states she was concerned this could be cardiac in nature and therefore took 4 baby aspirin and 2 nitro. She states the pain did not improve with this and therefore she called EMS to bring her in for evaluation. The patient states that there was no vomiting diaphoresis or shortness of breath associated with PFSH [facility] Medical History Anxiety Apical mural thrombus with acute FL Atherosclerotic heart disease of [place] coronary artery without angina pectoris Cervical spinal stenosis Chronic back pain Chronic systolic (congestive) heart failure Closed right tibial fracture COPD (chronic obstructive pulmonary disease) Diabetes mellitus type 2 in nonobese Essential (primary) hypertension History of ST elevation myocardial infarction (STEMI) IBS (irritable bowel syndrome) Irritable bowel syndrome with diarrhea Ischemic cardiomyopathy Left ventricular hypertrophy Major depression Multiple sclerosis Nicotine abuse BRYAN (obstructive sleep apnea) Osteoporosis Pain of right lower extremity Paroxysmal atrial fibrillation RLS (restless legs syndrome) Suicidal ideation Tachycardia Takotsubo syndrome Vitamin B12 deficiency Home Medications albuterol sulfate 2 puff INHALATION Q6H PRN PRN 10/23/17 [History Last Taken 06/08/19] teriflunomide 14 mg PO DAILY 09/20/19 [History Last Taken 08/14/20 09:00] modafinil 200 mg PO DAILY 12/12/19 [History Last Taken 08/14/20 09:00] dicyclomine 20 mg tablet 20 mg PO BID PRN #180 tablet 03/15/20 [Rx Last Taken 08/14/20 13:00] acetaminophen 1,000 mg PO TID PRN #1 tablet 07/29/20 [Rx Last Taken Unknown] blood sugar diagnostic #100 each 08/10/20 [Rx Last Taken Unknown] blood-glucose meter #1 each 08/10/20 [Rx Last Taken Unknown] ascorbic acid (vitamin C) 500 mg PO DAILY #30 tab.chew 08/17/20 [Rx Last Taken Unknown] ferrous sulfate 325 mg PO DAILY #30 tablet 08/17/20 [Rx Last Taken Unknown] glimepiride 4 mg PO BID #0 08/17/20 [Rx Last Taken 08/14/20 09:00] atorvastatin 40 mg tablet 40 mg PO DAILY #30 tab 09/18/20 [Rx Last Taken Unknown] cholecalciferol (vitamin D3) 25 mcg (1,000 unit) capsule 50 mcg PO DAILY cap 09/18/20 [History Last Taken Unknown] mirabegron 25 mg tablet,extended release 24 hr 100 mg PO Q24H tab 09/18/20 [History Last Taken Unknown] nitroglycerin 0.4 mg sublingual tablet 0.4 mg SL ONCE #25 tablet 09/18/20 [Rx Last Taken Unknown] pantoprazole 40 mg tablet,delayed release 40 mg PO DAILY #30 tablet 09/18/20 [Rx Last Taken Unknown] acidophilus-pectin, citrus 1 cap PO DAILY 09/23/20 [History Last Taken Unknown] donepezil 10 mg tablet 20 mg PO DAILY #180 tab 10/02/20 [Rx Last Taken Unknown] isosorbide mononitrate 30 mg tablet,extended release 24 hr 30 mg PO BID #60 tab 10/08/20 [Rx Last Taken Unknown] diclofenac potassium 50 mg PO BID #20 tab 11/12/20 [Rx Last Taken Unknown] carvedilol 12.5 mg tablet 12.5 mg PO BID #60 tab 11/30/20 [Rx Last Taken Unknow n] duloxetine 30 mg capsule,delayed release 30 mg PO BID #60 cap 12/05/20 [Rx Last Taken Unknown] hydroxyzine HCl 50 mg tablet 50 mg PO TID #90 tab 12/20/20 [Rx Last Taken Unknown] calcium carbonate 600 mg calcium (1,500 mg) tablet 600 mg PO BID #180 tab 12/25/20 [Rx Last Taken Unknown] denosumab 60 mg/mL subcutaneous syringe 60 mg SUBCUT A8BUALTO #1 ml 12/25/20 [Rx Last Taken Unknown] lisinopril 10 mg tablet 10 mg PO DAILY #90 tab 12/25/20 [Rx Last Taken Unknown] ondansetron 8 mg disintegrating tablet 8 mg PO Q12H PRN #30 tab 12/25/20 [Rx Last Taken Unknown] tizanidine 2 mg tablet 2 mg PO QHS PRN #30 tab 12/25/20 [Rx Last Taken Unknown] sucralfate 1 gram tablet 1 g PO 4X/DAY #120 tablet 12/28/20 [Rx Last Taken Unknown] cephalexin 500 mg PO Q6 #40 capsule 01/06/21 [Rx Last Taken Unknown] ropinirole 1 mg PO BID 01/06/21 [History Last Taken Unknown] conj estrogen-medroxyprogesterone 0.625 mg-2.5 mg tablet 1 tab PO DAILY #28 tab 01/11/21 [Rx Last Taken Unknown] pioglitazone 30 mg tablet 30 mg PO DAILY #90 tab 01/15/21 [Rx Last Taken Unknown] potassium chloride 20 mEq tablet,extended release 20 meq PO DAILY #90 tab 01/15/21 [Rx Last Taken Unknown] Allergy/AdvReac Type Severity Reaction Status Date / Time indomethacin [From Indocin] Allergy Hives Verified 01/20/21 07:56 indomethacin sodium Allergy Hives Verified 01/20/21 07:56 [From Indocin] iodine Allergy Hives Verified 01/20/21 07:56 propoxyphene napsylate Allergy Out of Verified 01/20/21 07:56 [From Darvocet-N] control aripiprazole [From Abilify] AdvReac Other Verified 01/20/21 07:56 aspirin AdvReac Upset Verified 01/20/21 07:56 Stomach clindamycin AdvReac Nausea Verified 01/20/21 07:56 metformin AdvReac Other Verified 01/20/21 07:56 sumatriptan [From Imitrex] AdvReac Vomiting Verified 01/20/21 07:56 Family History Father Cancer Lung cancer Mother Cancer Pancreatic cancer Surgical History History of amputation of left great toe History of back surgery History of cervical discectomy History of coronary artery stent placement (04/08/16) History of left heart catheterization (09/25/20) History of left knee surgery History of loop recorder (06/2014) History of tonsillectomy and adenoidectomy Social History household members: none Smoking Status: Current every day smoker tobacco type: cigarettes alcohol intake: never substance use type: does not use caffeine: Yes Type: coffee Number of servings: 1 what type of physical activity do you participate in: none and other details: Physical Therapy ROS ROS ED Constitutional Constitutional ED: Denies chills or fever(s) ENT ENT ED: Denies sore throat Cardiovascular Cardiovascular: Reports chest pain; Denies palpitations or racing heartbeat Respiratory/Chest Respiratory/Chest: Denies cough or dyspnea Gastrointestinal Gastrointestinal: Reports abdominal pain and nausea; Denies diarrhea or vomiting Genitourinary Genitourinary ED: Denies dysuria Musculoskeletal Musculoskeletal: Denies myalgias Integumentary Denies rash Neurologic Neurologic: Denies headache(s) Hematologic/Lymphatic Hematologic/Lymphatic: Denies easy bleeding or easy bruising EXAM Physical Exam Const Vital Signs: 01/20/21 07:57 01/20/21 08:01 01/20/21 09:08 Temperature 96.9 F L Temperature Source Temporal Pulse Rate 77 66 Respiratory Rate 25 H 18 Respiratory Effort Normal Non-Labored Blood Pressure 142/57 H Blood Pressure Mean 85 Pulse Ox 96 96 Oxygen Delivery Method Room Air Room Air 01/20/21 10:06 Temperature Temperature Source Pulse Rate 66 Respiratory Rate 14 Respiratory Effort Blood Pressure 129/109 H Blood Pressure Mean 115 Pulse Ox 95 Oxygen Delivery Method Room Air Positive well nourished and well developed General Appearance ED: well developed HEENT Reports moist mucous membranes Eyes PERRL and EOMs intact bilaterally Neck supple Chest Wall Chest Narrative: Patient has reproducible midsternal to left anterior chest wall pain on palpation without bony deformity or crepitance Resp normal respiratory effort Resp Narrative: Patient's breath sounds are diminished throughout with faint expiratory wheeze consistent with history of smoking Cardio regular rate and regular rhythm Rate: other Other Details: Radial pulses are plus 2 out of 4 bilaterally are equal and symmetric GI non-distended GI Narrative: There is tenderness to palpation in the midepigastric region but no voluntary guarding or rigidity no pulsatile mass Auscultation: normoactive bowel sounds Palpation: soft Extremity normal to inspection Extremity Narrative: Patient has a walking boot in place to the right lower leg with report of previous ankle fracture. Otherwise no asymmetric edema no pitting edema negative Homans' sign bilaterally Neuro oriented x3 and CN's II-XII intact bilaterally Sensorium / Orientation: alert Motor Exam: strength 5/5 throughout Psych mental status grossly normal Skin no rashes or lesions noted MDM MDM MDM Narrative Medical decision making narrative: Patient presented to the ER with stable vitals and in no acute distress. Her report of pain was not classic cardiac in nature but she does have a known history of coronary artery disease so elected to perform a cardiac work-up. Initial and delta troponin were within normal limits with no true or clinically significant variation. Chest x-ray was clear and EKG was sinus rhythm. On reevaluation she reported resolution of her pain. Therefore at this time with overall negative work-up I have low concern this is active cardiac disease and she is safe for discharge Please note patient does have a heart score of 3 Lab Data Attestation: I reviewed the patient's lab results. Labs: Laboratory Results - last 24 hr 01/20/21 01/20/21 01/20/21 08:25 08:25 10:20 WBC 7.6 RBC 4.07 L Hgb 11.1 L Hct 36.2 L MCV 88.9 MCH 27.3 MCHC 30.7 L RDW Std Deviation 52.7 H RDW Coeff of [place] 16.0 H Plt Count 227 MPV 9.4 Immature Gran % (Auto) 0.300 Neut % (Auto) 68.7 Lymph % (Auto) 15.9 L [place] % (Auto) 10.1 H Eos % (Auto) 4.1 Baso % (Auto) 0.9 Absolute Neuts (auto) 5.2 Absolute Lymphs (auto) 1.21 Nucleated RBC % 0 Sodium 139 Potassium 3.6 Chloride 109 H Carbon Dioxide 23.0 Anion Gap 7 BUN 17 Creatinine 0.64 Estim Creat Clear Calc 47.79 Est GFR (MDRD) Af Amer 119 Est GFR (MDRD) Non-Af 98 BUN/Creatinine Ratio 26.4 H Glucose 190 H Calcium 8.7 Total Bilirubin 0.10 L Direct Bilirubin < 0.05 AST 14 L ALT 14 Alkaline Phosphatase 87 Troponin I High Sens 14 16 Total Protein 5.7 L Albumin 2.5 L Globulin 3.2 Lipase 116 Radiography Chest X-Ray - ED: 1 View, Read by Radiologist and Normal Diagnostic Testing: Radiology Impression Chest X-Ray 01/20/21 08:08 IMPRESSION: Normal x-ray examination of the chest. Electronically Signed: Armando Taylor MD at 9:23 EDT Tel , Service support , Discharge Plan Triage Chief Complaint: Chest Pain ED Provider: Terry Bennett Dx/Rx/DC Orders Clinical Impression: Nonspecific chest pain Instructions: ED Chest Pain, Uncertain Cause Prescriptions: No Action dicyclomine 20 mg tablet 20 mg PO BID PRN (Reason: abdominal discomfort) Qty: 180 RF: 2 Myrbetriq 25 mg tablet extended release 24 hr 100 mg PO Q24H RF: 0 cholecalciferol (vitamin D3) 25 mcg (1,000 unit) capsule 50 mcg PO DAILY RF: 0 nitroglycerin 0.4 mg tablet, sublingual 0.4 mg SL ONCE Qty: 25 RF: 3 isosorbide mononitrate 30 mg tablet extended release 24 hr 30 mg PO BID Qty: 60 RF: 11 donepezil [Aricept] 10 mg tablet 20 mg PO DAILY Qty: 180 RF: 1 lisinopril 10 mg tablet 10 mg PO DAILY Qty: 90 RF: 3 calcium carbonate 600 mg calcium (1,500 mg) tablet 600 mg PO BID Qty: 180 RF: 1 Prolia 60 mg/mL syringe 60 mg subcut [id number] Qty: 1 RF: 1 ondansetron 8 mg tablet,disintegrating 8 mg PO Q12H PRN (Reason: nausea and vomiting) Qty: 30 RF: 1 tizanidine 2 mg tablet 2 mg PO QHS PRN (Reason: muscle spasticity) Qty: 30 RF: 0 albuterol sulfate 1 INHALER inhaler 2 puff INHALATION Q6H PRN PRN (Reason: Sob &/Or Wheezing) RF: 0 teriflunomide 14 mg tablet 14 mg PO DAILY RF: 0 modafinil 200 MG tablet 200 mg PO DAILY RF: 0 acetaminophen 500 MG tablet 1,000 mg PO TID PRN (Reason: pain 1-02/03) Qty: 1 RF: 0 ferrous sulfate 325 MG tablet 325 mg PO DAILY Qty: 30 RF: 2 ascorbic acid (vitamin C) 500 MG tablet,chewable 500 mg PO DAILY Qty: 30 RF: 0 glimepiride 4 MG tablet 4 mg PO BID Qty: 0 RF: 0 acidophilus-pectin, citrus 100 million cell-10 mg Capsule 1 cap PO DAILY RF: 0 diclofenac potassium 50 mg tablet 50 mg PO BID Qty: 20 RF: 0 ropinirole 1 mg tablet 1 mg PO BID RF: 0 cephalexin 500 mg capsule 500 mg PO Q6 Qty: 40 RF: 0 (DME) blood-glucose meter [Accu-Chek Ada Plus Meter] Misc See Rx Instructions .ROUTE .MEDSUPPLY Qty: 1 RF: 0 (DME) Accu-Chek Ada Plus test strp Strip See Rx Instructions .ROUTE .MEDSUPPLY Qty: 100 RF: 3 pantoprazole 40 mg tablet,delayed release (DR/EC) 40 mg PO DAILY Qty: 30 RF: 11 atorvastatin 40 mg tablet 40 mg PO DAILY Qty: 30 RF: 11 carvedilol 12.5 mg tablet 12.5 mg PO BID Qty: 60 RF: 11 duloxetine [Cymbalta] 30 mg capsule,delayed release(DR/EC) 30 mg PO BID Qty: 60 RF: 2 hydroxyzine HCl 50 mg tablet 50 mg PO TID Qty: 90 RF: 2 sucralfate 1 gram tablet 1 g PO 4X/DAY Qty: 120 RF: 1 conj estrog-medroxyprogest rqauel 0.625-2.5 mg tablet 1 tab PO DAILY Qty: 28 RF: 0 pioglitazone 30 mg tablet 30 mg PO DAILY Qty: 90 RF: 0 potassium chloride 20 mEq tablet extended release 20 meq PO DAILY Qty: 90 RF: 0 Primary Care Provider: Tom Sherman Referrals: Tom Sherman MD [Primary Care Provider] - Disposition Disposition: Home, Self Care
[2021-01-20] MEDS: Mag Hydrox/Al Hydrox/Simeth 30 ML UDC PO (08:31)
[2021-01-20] MEDS: Morphine 4 MG/ML Syringe IV (08:32)
[2021-01-20] MEDS: Ondansetron 4 MG/2 ML Vial IV (08:32)
[2021-01-20] MEDS: Orphenadrine 60 MG/2 ML Ampul IV (08:33)
[2021-01-20 08:35] LABS: Absolute Lymphocyte Count 1.21 X10^3/uL (0.83-4.51); Absolute Neutrophil Count 5.2 X10^3/uL (2.0-7.7); Basophil# 0.07 X10^3/uL; Basophil% 0.9 % (0-1); Eosinophil# 0.31 X10^3/uL; Eosinophils% 4.1 % (0-5); Hematocrit 36.2 % (37-47); Hemoglobin 11.1 g/dL (12.0-15.0); Lymphocyte # 1.21 X10^3/ul (0.83-4.51); Lymphocyte % 15.9 % (19-41); Mean Corp Hgb Conc 30.7 g/dL (32-36); Mean Corpuscular Hgb 27.3 pg (27.0-32.0); Mean Corpuscular Volume 88.9 fL (81-99); Mean Platelet Vol. 9.4 fl (6.2-12.0); Monocyte# 0.77 X10^3/uL; Monocyte% 10.1 % (0-10); NRBC Flagged by Analyzer 0 % (0-5); Neutrophil # 5.22 X10^3/uL (2.7-7.7); Neutrophil % 68.7 % (47-70); Platelet Count 227 K/mm3 (150-450); RBC Distribution Width SD 52.7 fl (35.1-43.9); Red Blood Count 4.07 M/mm3 (4.2-5.4); White Blood Count 7.6 K/mm3 (4.4-11.0)
[2021-01-20 08:53] LABS: AST(SGOT) 14 U/L (15-37); Alanine Aminotransfer ALT/SGPT 14 U/L (13-56); Albumin, Serum 2.5 g/dL (3.2-5.0); Alkaline Phosphatase 87 U/L (45-117); Anion Gap 7 (5-15); BUN 17 mg/dL (7-18); BUN/Creat Ratio 26.4 RATIO (10-20); Bilirubin, Direct < 0.05 mg/dL (0.00-0.30); Calcium,Total 8.7 mg/dL (8.5-10.1); Chloride 109 mmol/L (98-107); Creatinine, Serum 0.64 mg/dL (0.55-1.02); EST Glomerular Filtration Rate 98 mL/min (>60); Est Glom Filt Rate - Afr Amer 119 mL/min (>60); Estimated Creatinine Clearance 47.79 ml/min; Globulin 3.2 g/dL (2.2-4.2); Glucose 190 mg/dL (74-106); Lipase 116 U/L (73-393); Potassium 3.6 mmol/L (3.5-5.1); Protein, Total 5.7 g/dL (6.4-8.2); Sodium Level 139 mmol/L (136-145); Troponin-I HS 14 pg/mL (3.0-54.0)
[2021-01-20 09:08] VITALS: BP 142/57; PULSE 66; RESP 18; O2SAT 96
[2021-01-20 10:06] VITALS: BP 129/109; PULSE 66; RESP 14; O2SAT 95
[2021-01-20 10:48] LABS: Troponin-I HS 16 pg/mL (3.0-54.0)
[2021-01-20 11:11] VITALS: PULSE 66; RESP 16; O2SAT 98
== END 2021-01-20 11:11 | disposition home or self-care (01) ==
PROVIDERS: Emergency Provider Emergency Medicine; PCP Internal Medicine
DX: R07.9 Chest pain, unspecified (principal); I25.10 Atherosclerotic heart disease of native coronary artery without angina pectoris; I11.0 Hypertensive heart disease with heart failure; I50.22 Chronic systolic (congestive) heart failure; I25.5 Ischemic cardiomyopathy; I48.0 Paroxysmal atrial fibrillation; I25.2 Old myocardial infarction; E11.9 Type 2 diabetes mellitus without complications; J44.9 Chronic obstructive pulmonary disease, unspecified; M81.0 Age-related osteoporosis without current pathological fracture; G35 Multiple sclerosis; F32.9 Major depressive disorder, single episode, unspecified; F41.9 Anxiety disorder, unspecified; F17.210 Nicotine dependence, cigarettes, uncomplicated; Z79.82 Long term (current) use of aspirin; Z79.84 Long term (current) use of oral hypoglycemic drugs; Z79.899 Other long term (current) drug therapy
CPT/HCPCS: 71045; 80048; 80076; 83690; 84484; 85025; 93005; 96374; 96375; 99284; A4216; J2405

== ENCOUNTER 2021-01-22 13:35 | Emergency (ER) | payer MEDICARE, MEDICAID, SELFPAY ==
[2016-07-13 11:45] VITALS: BMI 31.4
[2021-01-22 14:03] VITALS: BP 131/80; PULSE 79; RESP 18; TEMP 37; O2SAT 96; BMI 28.3
--- NOTE | 2021-01-22 14:51 | EKG12_ITS ---
Test Reason : GI BLEED/CP Blood Pressure : / mmHG Vent. Rate : 063 BPM Atrial Rate : 063 BPM P-R Int : 144 ms QRS Dur : 090 ms QT Int : 436 ms P-R-T Axes : 028 -56 090 degrees QTc Int : 446 ms Normal sinus rhythm Left axis deviation Septal infarct , age undetermined Inferior infarct , age undetermined T wave abnormality, consider anterior ischemia Abnormal ECG Confirmed by CATHERINE WITT, GRIS ([id number]), desk editor YUNG MUNGUIA ([id number]) on 01/24/2021 8:45:41 AM Referred By: SONG Confirmed By:GRIS ALEXANDER MD
[2021-01-22 14:56] LABS: Mucous, Urine 0 SEEN /hpf (<or=2+); Red Blood Cells-Urine 0 SEEN /hpf (0-5); White Blood Cells 0 SEEN /hpf (0-5)
[2021-01-22 14:56] LABS: Absolute Lymphocyte Count 1.52 X10^3/uL (0.83-4.51); Absolute Neutrophil Count 4.4 X10^3/uL (2.0-7.7); Basophil# 0.07 X10^3/uL; Eosinophils% 2.9 % (0-5); Hematocrit 38.9 % (37-47); Hemoglobin 12.3 g/dL (12.0-15.0); Lymphocyte # 1.52 X10^3/ul (0.83-4.51); Lymphocyte % 22.2 % (19-41); Mean Corp Hgb Conc 31.6 g/dL (32-36); Mean Corpuscular Hgb 27.3 pg (27.0-32.0); Mean Corpuscular Volume 86.4 fL (81-99); Mean Platelet Vol. 9.5 fl (6.2-12.0); Monocyte# 0.65 X10^3/uL; Monocyte% 9.5 % (0-10); NRBC Flagged by Analyzer 0 % (0-5); Neutrophil % 64.1 % (47-70); Platelet Count 240 K/mm3 (150-450); RBC Distribution Width CV 15.9 % (11.6-14.6); RBC Distribution Width SD 50.7 fl (35.1-43.9); White Blood Count 6.9 K/mm3 (4.4-11.0)
[2021-01-22 14:59] LABS: Color, Urine Yellow (Yellow); Glucose, Dipstick Normal (Normal); Ketone-Dipstick Negative (Negative); Leukocyte Esterase-Dipstick Negative /ul (Negative); Nitrite-Dipstick Negative (Negative); Occult Blood-Urine Negative /ul (Negative); Protein-Dipstick Negative (Negative); Specific Gravity, Urine 1.005 (1.002-1.030); Urine Bilirubin Dipstick Negative (Negative); Urine Clarity Clear (Clear); Urine Urobilinogen Normal (Normal)
[2021-01-22 15:21] LABS: Anion Gap 8 (5-15); BUN 12 mg/dL (7-18); BUN/Creat Ratio 17.5 RATIO (10-20); Calcium,Total 9.3 mg/dL (8.5-10.1); Chloride 103 mmol/L (98-107); Creatinine, Serum 0.68 mg/dL (0.55-1.02); EST Glomerular Filtration Rate 91 mL/min (>60); Est Glom Filt Rate - Afr Amer 110 mL/min (>60); Glucose 181 mg/dL (74-106); Potassium 4.2 mmol/L (3.5-5.1); Sodium Level 138 mmol/L (136-145)
[2021-01-22 15:40] LABS: Bacteria RARE /hpf (None Seen); Squamous Epithelial Cells - UA 0-5 SEEN /hpf (5-10)
--- NOTE | 2021-01-22 15:54 | EDS_ITS ---
HPI History of Present Illness Chief Complaint: GI Bleed Detail of Chief Complaint: Hematemesis x2 and chest pain Informant: patient Onset/Context/Timing Onset: Today Context: Sudden Onset Timing: Intermittent Quality: Hematemesis x2 and chest ache with dyspnea Location: GI and mid chest Current Severity: Gone Maximum Severity: Moderate Worsened by: Chest pain at rest Relieved by: Scheduled for outpatient EGD by Dr. Jiménez Associated Symptoms Associated Symptoms: Per HPI Narrative Narrative: Patient 65-year-old woman who is scheduled for EGD by Dr. Villarreal as an outpatient for evaluation of ulcers. She reports hematemesis x2 today. She also reported chest pain that is in the middle of her chest. The chest pain started at 0600 lasted an hour or 2. The hematemesis first noted at 0730. She denies black or maroon-colored stool. She is not on an NSAID or aspirin. She denies any epigastric pain. She denies orthostatic symptoms. She denies fever, chills night sweats. She denies cough or shortness of breath presently. She denies orthopnea or PND. She denies diarrhea. She denies dysuria, frequency, urgency or hematuria. She denies leg pain, swelling discoloration. There is no history of VTE. Prior similar symptoms: Yes Recent Illness/Hospitalization: Yes [facility] Medical History Anxiety Apical mural thrombus with acute [place] Atherosclerotic heart disease of craig coronary artery without angina pectoris Cervical spinal stenosis Chronic back pain Chronic systolic (congestive) heart failure Closed right tibial fracture COPD (chronic obstructive pulmonary disease) Diabetes mellitus type 2 in nonobese Essential (primary) hypertension History of ST elevation myocardial infarction (STEMI) IBS (irritable bowel syndrome) Irritable bowel syndrome with diarrhea Ischemic cardiomyopathy Left ventricular hypertrophy Major depression Multiple sclerosis Nicotine abuse BRYAN (obstructive sleep apnea) Osteoporosis Pain of right lower extremity Paroxysmal atrial fibrillation RLS (restless legs syndrome) Suicidal ideation Tachycardia Takotsubo syndrome Vitamin B12 deficiency Home Medications albuterol sulfate 2 puff INHALATION Q6H PRN PRN 10/23/17 [History Last Taken 06/08/19] teriflunomide 14 mg PO DAILY 09/20/19 [History Last Taken 08/14/20 09:00] modafinil 200 mg PO DAILY 08/17/20 [History Last Taken 08/14/20 09:00] dicyclomine 20 mg tablet 20 mg PO BID PRN #180 tablet 03/15/20 [Rx Last Taken 08/14/20 13:00] acetaminophen 1,000 mg PO TID PRN #1 tablet 07/29/20 [Rx Last Taken Unknown] blood sugar diagnostic #100 each 08/10/20 [Rx Last Taken Unknown] blood-glucose meter #1 each 08/10/20 [Rx Last Taken Unknown] ascorbic acid (vitamin C) 500 mg PO DAILY #30 tab.chew 08/17/20 [Rx Last Taken Unknown] ferrous sulfate 325 mg PO DAILY #30 tablet 08/17/20 [Rx Last Taken Unknown] glimepiride 4 mg PO BID #0 08/17/20 [Rx Last Taken 08/14/20 09:00] atorvastatin 40 mg tablet 40 mg PO DAILY #30 tab 09/18/20 [Rx Last Taken Unknown] cholecalciferol (vitamin D3) 25 mcg (1,000 unit) capsule 50 mcg PO DAILY cap 09/18/20 [History Last Taken Unknown] mirabegron 25 mg tablet,extended release 24 hr 100 mg PO Q24H tab 09/18/20 [History Last Taken Unknown] nitroglycerin 0.4 mg sublingual tablet 0.4 mg SL ONCE #25 tablet 09/18/20 [Rx Last Taken Unknown] pantoprazole 40 mg tablet,delayed release 40 mg PO DAILY #30 tablet 09/18/20 [Rx Last Taken Unknown] acidophilus-pectin, citrus 1 cap PO DAILY 09/23/20 [History Last Taken Unknown] donepezil 10 mg tablet 20 mg PO DAILY #180 tab 10/02/20 [Rx Last Taken Unknown] isosorbide mononitrate 30 mg tablet,extended release 24 hr 30 mg PO BID #60 tab 10/08/20 [Rx Last Taken Unknown] diclofenac potassium 50 mg PO BID #20 tab 11/12/20 [Rx Last Taken Unknown] carvedilol 12.5 mg tablet 12.5 mg PO BID #60 tab 11/30/20 [Rx Last Taken Unknown] duloxetine 30 mg capsule,delayed release 30 mg PO BID #60 cap 12/05/20 [Rx Last Taken Unknown] hydroxyzine HCl 50 mg tablet 50 mg PO TID #90 tab 12/20/20 [Rx Last Taken Unknown] calcium carbonate 600 mg calcium (1,500 mg) tablet 600 mg PO BID #180 tab 12/25/20 [Rx Last Taken Unknown] denosumab 60 mg/mL subcutaneous syringe 60 mg SUBCUT [id number] #1 ml 12/25/20 [Rx Last Taken Unknown] lisinopril 10 mg tablet 10 mg PO DAILY #90 tab 12/25/20 [Rx Last Taken Unknown] ondansetron 8 mg disintegrating tablet 8 mg PO Q12H PRN #30 tab 12/25/20 [Rx Last Taken Unknown] tizanidine 2 mg tablet 2 mg PO QHS PRN #30 tab 12/25/20 [Rx Last Taken Unknown] sucralfate 1 gram tablet 1 g PO 4X/DAY #120 tablet 12/28/20 [Rx Last Taken U nknown] cephalexin 500 mg PO Q6 #40 capsule 01/06/21 [Rx Last Taken Unknown] ropinirole 1 mg PO BID 01/06/21 [History Last Taken Unknown] conj estrogen-medroxyprogesterone 0.625 mg-2.5 mg tablet 1 tab PO DAILY #28 tab 01/11/21 [Rx Last Taken Unknown] pioglitazone 30 mg tablet 30 mg PO DAILY #90 tab 01/15/21 [Rx Last Taken Unknown] potassium chloride 20 mEq tablet,extended release 20 meq PO DAILY #90 tab 01/15/21 [Rx Last Taken Unknown] Allergy/AdvReac Type Severity Reaction Status Date / Time indomethacin [From Indocin] Allergy Hives Verified 01/20/21 07:56 indomethacin sodium Allergy Hives Verified 01/20/21 07:56 [From Indocin] iodine Allergy Hives Verified 01/20/21 07:56 propoxyphene napsylate Allergy Out of Verified 01/20/21 07:56 [From Darvocet-N] control aripiprazole [From Abilify] AdvReac Other Verified 01/20/21 07:56 aspirin AdvReac Upset Verified 01/20/21 07:56 Stomach clindamycin AdvReac Nausea Verified 01/20/21 07:56 metformin AdvReac Other Verified 01/20/21 07:56 sumatriptan [From Imitrex] AdvReac Vomiting Verified 01/20/21 07:56 Family History Father Cancer Lung cancer Mother Cancer Pancreatic cancer Surgical History History of amputation of left great toe History of back surgery History of cervical discectomy History of coronary artery stent placement (04/08/16) History of left heart catheterization (09/25/20) History of left knee surgery History of loop recorder (06/2014) History of tonsillectomy and adenoidectomy Social History household members: none Smoking Status: Current every day smoker tobacco type: cigarettes alcohol intake: never substance use type: does not use caffeine: Yes Type: coffee Number of servings: 1 what type of physical activity do you participate in: none and other details: Physical Therapy ROS ROS ED Constitutional Constitutional ED: Denies chills, fever(s), subjective or sweats Eyes Eyes: Denies blurry vision, change in vision or diplopia ENT ENT ED: Denies ear pain, rhinorrhea or sore throat Cardiovascular Cardiovascular: Reports chest pain; Denies orthopnea, palpitations, paroxysmal nocturnal dyspnea or racing heartbeat Respiratory/Chest Respiratory/Chest: Reports dyspnea; Denies cough, dyspnea on exertion, orthopnea, paroxysmal nocturnal dyspnea or sputum Gastrointestinal Gastrointestinal: Reports nausea and vomiting; Denies abdominal pain, constipation, diarrhea or melena Genitourinary Genitourinary ED: Denies dysuria, hematuria or urinary frequency Musculoskeletal Musculoskeletal: Denies arthralgias, back pain, myalgias or neck pain Integumentary Denies rash Neurologic Neurologic: Reports weakness; Denies headache(s) or paresthesias Psychiatric Psychiatric: Reports depression Endocrine Endocrinology: Denies polydipsia, polyphagia or polyuria Allergic/Immunologic Allergic/Immunologic ED: Denies urticaria EXAM Physical Exam Const Vital Signs: 01/22/21 14:03 Temperature 98.6 F Temperature Source Temporal Pulse Rate 79 Respiratory Rate 18 Blood Pressure 131/80 H Blood Pressure Mean 97 Pulse Ox 96 Oxygen Delivery Method Room Air Positive well nourished and well developed General Appearance ED: well developed and NAD HEENT Reports TM's clear and moist mucous membranes HEENT Narrative: Head is atraumatic normocephalic. Ears are normal. Nares patent. Tympanic Membrane ED: Yes TM's clear Eyes PERRL and EOMs intact bilaterally General Eye ED: Negative for pale conjunctiva or scleral icterus Neck no lymphadenopathy, supple and no JVD Resp normal respiratory effort and clear to auscultation bilaterally Cardio regular rate, regular rhythm, S1 normal heart sound, S2 normal heart sound and no murmurs GI normal to inspection, nondistended, normoactive bowel sounds and non-tender Palpation: soft Back/Spine no CVA tenderness Cervical Spine: Negative for cervical spine tenderness Thoracic Spine / Upper Back: Negative for thoracic spinal tenderness or paraspinal muscle tenderness Lumbar Spine / Lower Back: Negative for lumbar spinal tenderness Extremity normal to inspection General Extremety ED: Negative for edema or tenderness General Extremity: Negative for edema Neuro oriented x3, CN's II-XII intact bilaterally and no sensory deficits noted Sensorium / Orientation: alert Motor Exam: strength 5/5 throughout Psych Mood & Affect: depressed Skin no rashes or lesions noted General Skin Exam: other 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 MDM MDM MDM Narrative Medical decision making narrative: With history of peptic ulcer disease and outpatient EGD scheduled to be performed this coming week will obtain appropriate blood work. NG was placed to see if patient still actively bleeding. EKG and appropriate lab work to evaluate her chest pain. Aspirin was not given since there is concern she is a upper GI bleed. Positive for bright red blood even after irrigation. Will call hospitalist for admission. This most likely is due to a gastric or duodenal ulcer since she has history of peptic ulcer disease and was scheduled for an outpatient endoscopy. I was informed by nurse that the blood was felt to be traumatic. Once she was irrigated there was no blood noted. Suspect this to be traumatic. Therefore with a negative delta troponin and no active bleeding will have patient discharged home to follow-up with Dr. Jiménez for scheduled EGD. Lab Data Attestation: I reviewed the patient's lab results. Labs: Laboratory Results - last 24 hr 01/22/21 01/22/21 01/22/21 14:50 14:50 14:50 WBC 6.9 RBC 4.50 Hgb 12.3 Hct 38.9 MCV 86.4 MCH 27.3 MCHC 31.6 L RDW Std Deviation 50.7 H RDW Coeff of Yeimi 15.9 H Plt Count 240 MPV 9.5 Immature Gran % (Auto) 0.300 Neut % (Auto) 64.1 Lymph % (Auto) 22.2 [place] % (Auto) 9.5 Eos % (Auto) 2.9 Baso % (Auto) 1.0 Absolute Neuts (auto) 4.4 Absolute Lymphs (auto) 1.52 Nucleated RBC % 0 Sodium 138 Potassium 4.2 Chloride 103 Carbon Dioxide 27.0 Anion Gap 8 BUN 12 Creatinine 0.68 Estim Creat Clear Calc 49.80 Est GFR (MDRD) Af Amer 110 Est GFR (MDRD) Non-Af 91 BUN/Creatinine Ratio 17.5 Glucose 181 H Calcium 9.3 Troponin I High Sens 19 Urine Color Urine Clarity Urine pH Ur Specific [place] Urine Protein Urine Glucose (UA) Urine Ketones Urine Occult Blood Urine Nitrite Urine Bilirubin Urine Urobilinogen Ur Leukocyte Esterase Urine RBC Urine WBC Ur Squamous Epith Cells Urine Bacteria Urine Mucus 01/22/21 01/22/21 18:05 Unknown WBC RBC Hgb Hct MCV MCH MCHC RDW Std Deviation RDW Coeff of Yeimi Plt Count MPV Immature Gran % (Auto) Neut % (Auto) Lymph % (Auto) [place] % (Auto) Eos % (Auto) Baso % (Auto) Absolute Neuts (auto) Absolute Lymphs (auto) Nucleated RBC % Sodium Potassium Chloride Carbon Dioxide Anion Gap BUN Creatinine Estim Creat Clear Calc Est GFR (MDRD) Af Amer Est GFR (MDRD) Non-Af BUN/Creatinine Ratio Glucose Calcium Troponin I High Sens 19 Urine Color Yellow Urine Clarity Clear Urine pH 7.0 Ur Specific [place] 1.005 Urine Protein Negative Urine Glucose (UA) Normal Urine Ketones Negative Urine Occult Blood Negative Urine Nitrite Negative Urine Bilirubin Negative Urine Urobilinogen Normal Ur Leukocyte Esterase Negative Urine RBC 0 SEEN Urine WBC 0 SEEN Ur Squamous Epith Cells 0-5 SEEN Urine Bacteria RARE Urine Mucus 0 SEEN 2-hour delta troponin is 0. Radiography Chest X-Ray - ED: 1 View, Read by ED Physician, No Acute Disease and Chronic Changes Diagnostic Testing: Radiology Impression Chest X-Ray 01/22/21 16:00 IMPRESSION: No airspace consolidation or pleural effusion. Electronically Signed: Conrad Schwartz MD ([place]) at 16:15 EDT , Service support , KUB X-Ray 01/22/21 17:10 IMPRESSION: Feeding tube extends to the gastroesophageal junction and should be adjusted. Electronically Signed: Yuval Joy MD at 17:31 EDT , Service support , EKG Initial EKG: Attestation: I personally reviewed and interpreted this EKG as follows: Interpretation: Sinus Rhythm (Normal sinus rhythm ventricular rate 63. NE interval 244 ms. Cures duration 90 ms. QT duration 4 to 36 ms. [place] to the left. There is decreased anterior force noted. There is nonspecific ST-T wave changes. 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, Discussing w/Consultants and Arranging Admission or Transfer Discharge Plan Triage Chief Complaint: GI Bleed ED Provider: Michael Alford Dx/Rx/DC Orders Clinical Impression: Diabetes mellitus type 2 in nonobese, Atypical chest pain, History of coronary artery disease, Hematemesis, Albertina-Velasco tear Instructions: Albertina-Velasco Tear, ED Chest Pain, Noncardiac Prescriptions: No Action dicyclomine 20 mg tablet 20 mg PO BID PRN (Reason: abdominal discomfort) Qty: 180 RF: 2 Myrbetriq 25 mg tablet extended release 24 hr 100 mg PO Q24H RF: 0 cholecalciferol (vitamin D3) 25 mcg (1,000 unit) capsule 50 mcg PO DAILY RF: 0 nitroglycerin 0.4 mg tablet, sublingual 0.4 mg SL ONCE Qty: 25 RF: 3 isosorbide mononitrate 30 mg tablet extended release 24 hr 30 mg PO BID Qty: 60 RF: 11 donepezil [Aricept] 10 mg tablet 20 mg PO DAILY Qty: 180 RF: 1 lisinopril 10 mg tablet 10 mg PO DAILY Qty: 90 RF: 3 calcium carbonate 600 mg calcium (1,500 mg) tablet 600 mg PO BID Qty: 180 RF: 1 Prolia 60 mg/mL syringe 60 mg subcut [id number] Qty: 1 RF: 1 ondansetron 8 mg tablet,disintegrating 8 mg PO Q12H PRN (Reason: nausea and vomiting) Qty: 30 RF: 1 tizanidine 2 mg tablet 2 mg PO QHS PRN (Reason: muscle spasticity) Qty: 30 RF: 0 albuterol sulfate 1 INHALER inhaler 2 puff INHALATION Q6H PRN PRN (Reason: Sob &/Or Wheezing) RF: 0 teriflunomide 14 mg tablet 14 mg PO DAILY RF: 0 modafinil 200 MG tablet 200 mg PO DAILY RF: 0 acetaminophen 500 MG tablet 1,000 mg PO TID PRN (Reason: pain -02/03) Qty: 1 RF: 0 ferrous sulfate 325 MG tablet 325 mg PO DAILY Qty: 30 RF: 2 ascorbic acid (vitamin C) 500 MG tablet,chewable 500 mg PO DAILY Qty: 30 RF: 0 glimepiride 4 MG tablet 4 mg PO BID Qty: 0 RF: 0 acidophilus-pectin, citrus 100 million cell-10 mg Capsule 1 cap PO DAILY RF: 0 diclofenac potassium 50 mg tablet 50 mg PO BID Qty: 20 RF: 0 ropinirole 1 mg tablet 1 mg PO BID RF: 0 cephalexin 500 mg capsule 500 mg PO Q6 Qty: 40 RF: 0 (DME) blood-glucose meter [Accu-Chek Ada Plus Meter] Misc See Rx Instructions .ROUTE .MEDSUPPLY Qty: 1 RF: 0 (DME) Accu-Chek Ada Plus test strp Strip See Rx Instructions .ROUTE .MEDSUPPLY Qty: 100 RF: 3 pantoprazole 40 mg tablet,delayed release (DR/EC) 40 mg PO DAILY Qty: 30 RF: 11 atorvastatin 40 mg tablet 40 mg PO DAILY Qty: 30 RF: 11 carvedilol 12.5 mg tablet 12.5 mg PO BID Qty: 60 RF: 11 duloxetine [Cymbalta] 30 mg capsule,delayed release(DR/EC) 30 mg PO BID Qty: 60 RF: 2 hydroxyzine HCl 50 mg tablet 50 mg PO TID Qty: 90 RF: 2 sucralfate 1 gram tablet 1 g PO 4X/DAY Qty: 120 RF: 1 conj estrog-medroxyprogest raquel 0.625-2.5 mg tablet 1 tab PO DAILY Qty: 28 RF: 0 pioglitazone 30 mg tablet 30 mg PO DAILY Qty: 90 RF: 0 potassium chloride 20 mEq tablet extended release 20 meq PO DAILY Qty: 90 RF: 0 Primary Care Provider: Tom Sherman Referrals: Tom Sherman MD [Primary Care Provider] - 3-5 Days Activity Restrictions/Additional Instructions: Keep your scheduled appointment with Dr. Jiménez for EGD. Disposition Disposition: Home, Self Care
--- NOTE | 2021-01-22 16:00 | RAD_ITS ---
STUDY: X-RAY CHEST REASON FOR EXAM: Female, 65 years old. cp TECHNIQUE: AP COMPARISON: None. FINDINGS: A Reveal insertable property assessment monitor projects over the left chest. The lungs are clear and expanded. There is no demonstrated pleural abnormality. Normal size heart. Normal mediastinum and sara. Normal visualized pulmonary arteries. There is atherosclerotic tortuosity of the aortic arch and descending thoracic aorta. Normal visualized thoracic spine. Fusion hardware of the lower cervical spine. There is no demonstrated abnormality of the visualized soft tissue structures of the upper abdomen. RAD/Chest 1 View (Portable) IMPRESSION: No airspace consolidation or pleural effusion. Electronically Signed: Conrad Schwartz MD ([place]) at 16:15 EDT , Service support ,
[2021-01-22 16:19] LABS: Troponin-I HS 19 pg/mL (3.0-54.0)
[2021-01-22] MEDS: Ondansetron 4 MG/2 ML Vial IV (16:23)
[2021-01-22] MEDS: Morphine 4 MG/ML Syringe IV (16:23)
--- NOTE | 2021-01-22 17:10 | RAD_ITS ---
STUDY: X-RAY - ABDOMEN/PELVIS REASON FOR EXAM: Female, 65 years old. NG Insertion TECHNIQUE: Single AP view of the abdomen / pelvis. COMPARISON: None. FINDINGS: Feeding tube extends to the gastroesophageal junction. There is implantable loop recorder Normal visualized lung bases. There is an unremarkable bowel gas pattern. There is no demonstrated free abdominal air. There is scoliosis and degenerative change of the spine. RAD/Abdomen Single View (Portable) IMPRESSION: Feeding tube extends to the gastroesophageal junction and should be adjusted. Electronically Signed: Yuval Joy MD at 17:31 EDT , Service support ,
[2021-01-22 18:32] LABS: Troponin-I HS 19 pg/mL (3.0-54.0)
== END 2021-01-22 20:17 | disposition home or self-care (01) ==
PROVIDERS: Emergency Provider Emergency Medicine; PCP Internal Medicine
DX: K22.6 Gastro-esophageal laceration-hemorrhage syndrome (principal); I25.10 Atherosclerotic heart disease of native coronary artery without angina pectoris; E11.9 Type 2 diabetes mellitus without complications; R07.89 Other chest pain; I11.0 Hypertensive heart disease with heart failure; I50.22 Chronic systolic (congestive) heart failure; I48.0 Paroxysmal atrial fibrillation; I25.5 Ischemic cardiomyopathy; I25.2 Old myocardial infarction; J44.9 Chronic obstructive pulmonary disease, unspecified; G35 Multiple sclerosis; M81.0 Age-related osteoporosis without current pathological fracture; F32.9 Major depressive disorder, single episode, unspecified; F41.9 Anxiety disorder, unspecified; F17.210 Nicotine dependence, cigarettes, uncomplicated; Z79.84 Long term (current) use of oral hypoglycemic drugs; Z79.899 Other long term (current) drug therapy
CPT/HCPCS: 36415; 71045; 74018; 80048; 81001; 84484; 85025; 93005; 96374; 96375; 99285; A4216; J2405

== ENCOUNTER 2021-01-28 09:52 | Emergency (ER) | payer MEDICARE, MEDICAID, SELFPAY ==
[2016-07-13 11:45] VITALS: BMI 31.4
[2021-01-28 09:53] VITALS: BP 147/104; PULSE 65; RESP 18; TEMP 36.9; O2SAT 96; BMI 30.8
--- NOTE | 2021-01-28 10:49 | EKG12_ITS ---
Test Reason : CP Blood Pressure : / mmHG Vent. Rate : 061 BPM Atrial Rate : 061 BPM P-R Int : 148 ms QRS Dur : 088 ms QT Int : 452 ms P-R-T Axes : 035 -47 117 degrees QTc Int : 455 ms Normal sinus rhythm Left axis deviation Inferior infarct , age undetermined Anteroseptal infarct , age undetermined Abnormal ECG Confirmed by ALLAN WITT, DORYS ([id number]), associate entertainment editor YUNG MUNGUIA ([id number]) on 01/29/2021 7:40:50 AM Referred By: WAYLON Confirmed By:DORYS LEMUS MD
--- NOTE | 2021-01-28 10:50 | RAD_ITS ---
STUDY: X-RAY CHEST REASON FOR EXAM: Female, 65 years old. chest pain TECHNIQUE: AP COMPARISON: None. FINDINGS: Fusion hardware of the cervical spine partially visualized. The lungs are clear and expanded. There is no demonstrated pleural abnormality. Normal size heart. Normal mediastinum and sara. Normal visualized pulmonary arteries. There is atherosclerotic tortuosity of the aortic arch and descending thoracic aorta. No acute bony process. There is no demonstrated abnormality of the visualized soft tissue structures of the upper abdomen. RAD/Chest 1 View (Portable) IMPRESSION: 1. No airspace consolidation or pleural effusion. Electronically Signed: Conrad Schwartz MD ([place]) at 12:56 EDT , Service support ,
[2021-01-28 10:54] VITALS: O2SAT 96
[2021-01-28 11:00] LABS: Absolute Lymphocyte Count 1.03 X10^3/uL (0.83-4.51); Absolute Neutrophil Count 3.9 X10^3/uL (2.0-7.7); Basophil# 0.07 X10^3/uL; Basophil% 1.2 % (0-1); Eosinophil# 0.21 X10^3/uL; Eosinophils% 3.6 % (0-5); Hematocrit 38.4 % (37-47); Hemoglobin 11.9 g/dL (12.0-15.0); Lymphocyte # 1.03 X10^3/ul (0.83-4.51); Lymphocyte % 17.6 % (19-41); Mean Corpuscular Hgb 27.5 pg (27.0-32.0); Mean Corpuscular Volume 88.9 fL (81-99); Mean Platelet Vol. 10.8 fl (6.2-12.0); Monocyte# 0.62 X10^3/uL; Monocyte% 10.6 % (0-10); NRBC Flagged by Analyzer 0 % (0-5); Neutrophil # 3.91 X10^3/uL (2.7-7.7); Neutrophil % 66.8 % (47-70); Platelet Count 222 K/mm3 (150-450); RBC Distribution Width CV 15.9 % (11.6-14.6); RBC Distribution Width SD 52.3 fl (35.1-43.9); Red Blood Count 4.32 M/mm3 (4.2-5.4); White Blood Count 5.9 K/mm3 (4.4-11.0)
[2021-01-28 11:13] LABS: Anion Gap 5 (5-15); BUN 18 mg/dL (7-18); BUN/Creat Ratio 26.5 RATIO (10-20); Chloride 109 mmol/L (98-107); Creatinine, Serum 0.68 mg/dL (0.55-1.02); EST Glomerular Filtration Rate 92 mL/min (>60); Est Glom Filt Rate - Afr Amer 112 mL/min (>60); Glucose 196 mg/dL (74-106); Potassium 4.4 mmol/L (3.5-5.1); Sodium Level 138 mmol/L (136-145); Troponin-I HS 12 pg/mL (3.0-54.0)
--- NOTE | 2021-01-28 11:19 | CT_ITS ---
EXAM: CT ABDOMEN AND PELVIS WITHOUT INTRAVENOUS CONTRAST CLINICAL INDICATION: right flank pain TECHNIQUE: Helically acquired images were obtained of the abdomen and pelvis without intravenous contrast. This CT exam was performed using one or more of the following dose reduction techniques: automated exposure control, adjustment of the mA and/or kV according to patient size, and/or use of iterative reconstruction technique. This report was created using [employer] report generation technology. COMPARISON: 01/10/2021 FINDINGS: LOWER THORAX: Unremarkable. Lung bases are clear. No cardiomegaly. No significant pericardial effusion. ABDOMEN: LIVER: Unremarkable. Homogeneous. GALLBLADDER AND BILE DUCTS: Unremarkable. No calcified gallstones. No gallbladder distention or wall edema. No intra- or extrahepatic biliary ductal dilation. PANCREAS: Unremarkable. No focal cystic mass. SPLEEN: Unremarkable. Normal size without focal cystic or solid mass. ADRENALS: Unremarkable. No nodules. KIDNEYS AND URETERS: Unremarkable. Normal renal size and position. No hydronephrosis. STOMACH AND BOWEL: Unremarkable. No stomach or bowel distention. No focal inflammatory change. PELVIS: APPENDIX: No evidence of acute appendicitis. BLADDER: Unremarkable. REPRODUCTIVE: Small calcified uterine fibroid. ABDOMEN and PELVIS: INTRAPERITONEAL SPACE: Unremarkable. No ascites or other fluid collection. No free air. BONES/JOINTS: Degenerative and operative changes of the lumbar spine. No suspicious lytic or blastic abnormality. SOFT TISSUES: Operative changes of the anterior abdominal wall. Injection granulomata in the bilateral gluteal subcutaneous fat. No discrete abdominal or pelvic wall hernia. VASCULATURE: Atherosclerosis of the abdominal aorta and iliac arteries. Abdominal aorta is non-dilated. LYMPH NODES: Unremarkable. No enlarged lymph nodes. CT/Abdomen/Pelvis without Cont IMPRESSION: No hydronephrosis or urinary tract calcifications. Electronically Signed: Conrad Schwartz MD ([place]) at 12:06 EDT , Service support ,
--- NOTE | 2021-01-28 11:21 | EX.ED.DYSGE1 ---
HPI History of Present Illness Chief Complaint: Chest Pain Narrative Narrative: Patient presenting with right flank pain, bladder spasms, concern for UTI. She states she was at Dr. Jessica's office earlier out of concern for UTI. She does not know what her urinalysis showed. She states he has a history of kidney stones and states that her right flank has been hurting her for a couple of days. She describes this as sharp. Patient states she does have associated nausea but has not vomited. Patient is also complaining of left-sided chest pain which radiates to the left shoulder. She states this has been ongoing since 730 this a.m. She does not have lightheadedness, diaphoresis, shortness of breath. She is not had a fever or chills. No coughing. [facility] Medical History Anxiety Apical mural thrombus with acute [place] Atherosclerotic heart disease of [place] coronary artery without angina pectoris Cervical spinal stenosis Chronic back pain Chronic systolic (congestive) heart failure Closed right tibial fracture COPD (chronic obstructive pulmonary disease) Diabetes mellitus type 2 in nonobese Essential (primary) hypertension History of ST elevation myocardial infarction (STEMI) IBS (irritable bowel syndrome) Irritable bowel syndrome with diarrhea Ischemic cardiomyopathy Left ventricular hypertrophy Major depression Multiple sclerosis Nicotine abuse BRYAN (obstructive sleep apnea) Osteoporosis Pain of right lower extremity Paroxysmal atrial fibrillation RLS (restless legs syndrome) Suicidal ideation Tachycardia Takotsubo syndrome Vitamin B12 deficiency Home Medications albuterol sulfate 2 puff INHALATION Q6H PRN PRN 10/23/17 [History Last Taken 06/08/19] teriflunomide 14 mg PO DAILY 09/20/19 [History Last Taken 08/14/20 09:00] modafinil 200 mg PO DAILY 12/12/19 [History Last Taken 08/14/20 09:00] dicyclomine 20 mg tablet 20 mg PO BID PRN #180 tablet 03/15/20 [Rx Last Taken 08/14/20 13:00] acetaminophen 1,000 mg PO TID PRN #1 tablet 07/29/20 [Rx Last Taken Unknown] blood sugar diagnostic #100 each 08/10/20 [Rx Last Taken Unknown] blood-glucose meter #1 each 08/10/20 [Rx Last Taken Unknown] ascorbic acid (vitamin C) 500 mg PO DAILY #30 tab.chew 08/17/20 [Rx Last Taken Unknown] ferrous sulfate 325 mg PO DAILY #30 tablet 08/17/20 [Rx Last Taken Unknown] glimepiride 4 mg PO BID #0 08/17/20 [Rx Last Taken 08/14/20 09:00] atorvastatin 40 mg tablet 40 mg PO DAILY #30 tab 09/18/20 [Rx Last Taken Unknown] cholecalciferol (vitamin D3) 25 mcg (1,000 unit) capsule 50 mcg PO DAILY cap 09/18/20 [History Last Taken Unknown] mirabegron 25 mg tablet,extended release 24 hr 100 mg PO Q24H tab 09/18/20 [History Last Taken Unknown] nitroglycerin 0.4 mg sublingual tablet 0.4 mg SL ONCE #25 tablet 09/18/20 [Rx Last Taken Unknown] pantoprazole 40 mg tablet,delayed release 40 mg PO DAILY #30 tablet 09/18/20 [Rx Last Taken Unknown] acidophilus-pectin, citrus 1 cap PO DAILY 09/23/20 [History Last Taken Unknown] donepezil 10 mg tablet 20 mg PO DAILY #180 tab 10/02/20 [Rx Last Taken Unknown] isosorbide mononitrate 30 mg tablet,extended release 24 hr 30 mg PO BID #60 tab 10/08/20 [Rx Last Taken Unknown] diclofenac potassium 50 mg PO BID #20 tab 11/12/20 [Rx Last Taken Unknown] carvedilol 12.5 mg tablet 12.5 mg PO BID #60 tab 11/30/20 [Rx Last Taken Unknown] duloxetine 30 mg capsule,delayed release 30 mg PO BID #60 cap 12/05/20 [Rx Last Taken Unknown] hydroxyzine HCl 50 mg tablet 50 mg PO TID #90 tab 12/20/20 [Rx Last Taken Unknown] calcium carbonate 600 mg calcium (1,500 mg) tablet 600 mg PO BID #180 tab 12/25/20 [Rx Last Taken Unknown] denosumab 60 mg/mL subcutaneous syringe 60 mg SUBCUT [id number] #1 ml 12/25/20 [Rx Last Taken Unknown] lisinopril 10 mg tablet 10 mg PO DAILY #90 tab 12/25/20 [Rx Last Taken Unknown] ondansetron 8 mg disintegrating tablet 8 mg PO Q12H PRN #30 tab 12/25/20 [Rx Last Taken Unknown] tizanidine 2 mg tablet 2 mg PO QHS PRN #30 tab 12/25/20 [Rx Last Taken Unknown] sucralfate 1 gram tablet 1 g PO 4X/DAY #120 tablet 12/28/20 [Rx Last Taken Unknown] cephalexin 500 mg PO Q6 #40 capsule 01/06/21 [Rx Last Taken Unknown] ropinirole 1 mg PO BID 01/06/21 [History Last Taken Unknown] conj estrogen-medroxyprogesterone 0.625 mg-2.5 mg tablet 1 tab PO DAILY #28 tab 01/11/21 [Rx Last Taken Unknown] pioglitazone 30 mg tablet 30 mg PO DAILY #90 tab 01/15/21 [Rx Last Taken Unknown] potassium chloride 20 mEq tablet,extended release 20 meq PO DAILY #90 tab 01/15/21 [Rx Last Taken Unknown] Allergy/AdvReac Type Severity Reaction Status Date / Time indomethacin [From Indocin] Allergy Hives Verified 01/20/21 07:56 indomethacin sodium Allergy Hives Verified 01/20/21 07:56 [From Indocin] iodine Allergy Hives Verified 01/20/21 07:56 propoxyphene napsylate Allergy Out of Verified 01/20/21 07:56 [From Darvocet-N] control aripiprazole [From Abilify] AdvReac Other Verified 01/20/21 07:56 aspirin AdvReac Upset Verified 01/20/21 07:56 Stomach clindamycin AdvReac Nausea Verified 01/20/21 07:56 metformin AdvReac Other Verified 01/20/21 07:56 sumatriptan [From Imitrex] AdvReac Vomiting Verified 01/20/21 07:56 Family History Father Cancer Lung cancer Mother Cancer Pancreatic cancer Surgical History History of amputation of left great toe History of back surgery History of cervical discectomy History of coronary artery stent placement (04/08/16) History of left heart catheterization (09/25/20) History of left knee surgery History of loop recorder (06/2014) History of tonsillectomy and adenoidectomy Social History household members: none Smoking Status: Current every day smoker tobacco type: cigarettes alcohol intake: never substance use type: does not use caffeine: Yes Type: coffee Number of servings: 1 what type of physical activity do you participate in: none and other details: Physical Therapy ROS ROS ED Constitutional Constitutional ED: Denies chills or fever(s) Eyes Eyes: Denies blurry vision or diplopia ENT ENT ED: Denies rhinorrhea or sore throat Cardiovascular Cardiovascular: Reports chest pain; Denies palpitations or racing heartbeat Respiratory/Chest Respiratory/Chest: Denies cough, dyspnea or sputum Gastrointestinal Gastrointestinal: Reports nausea and other Details: Right flank pain ; Denies constipation, diarrhea or vomiting Genitourinary Genitourinary ED: Denies dysuria or hematuria Musculoskeletal Musculoskeletal: Denies neck pain Integumentary Denies Abrasions or rash Neurologic Neurologic: Denies headache(s) or paresthesias EXAM Physical Exam Const Vital Signs: 01/28/21 09:53 01/28/21 10:54 01/28/21 11:27 Temperature 98.5 F Temperature Source Oral Pulse Rate 65 82 Respiratory Rate 18 16 Blood Pressure 147/104 H Blood Pressure Mean 118 Pulse Ox 96 96 96 Oxygen Delivery Method Room Air Room Air 01/28/21 12:14 01/28/21 13:07 01/28/21 14:25 Temperature Temperature Source Pulse Rate 88 58 L 90 Respiratory Rate 14 16 20 H Blood Pressure 169/60 H 165/77 H 183/81 H Blood Pressure Mean 96 106 Pulse Ox 95 96 96 Oxygen Delivery Method Room Air Room Air Positive well nourished General Appearance ED: NAD; Negative for pallor HEENT Reports moist mucous membranes Negative for trauma Eyes PERRL and EOMs intact bilaterally Chest Wall inspection of chest normal and palpation of chest normal Resp normal respiratory effort and clear to auscultation bilaterally Cardio regular rate and regular rhythm GI normal to inspection, nondistended, normoactive bowel sounds Back/Spine no CVA tenderness Neuro oriented x3 and CN's II-XII intact bilaterally Sensorium / Orientation: alert Psych mental status grossly normal Skin no rashes or lesions noted General Skin Exam: Negative for jaundice or pallor MDM MDM MDM Narrative Medical decision making narrative: Patient presenting with right flank pain and left-sided chest pain. From a cardiac standpoint she had an EKG performed which shows a sinus rhythm at 61 bpm without sign of ischemic change on my interpretation. Her troponins have been negative x2. Chest x-ray on my interpretation shows no acute cardiopulmonary process and the radiologist does agree. Patient's heart rate is 65, respirations 18, O2 sats 96% I have little suspicion for PE. She is not describing pleuritic chest pain. CBC is within normal limits. Renal function and electrolytes are normal. Urinalysis is negative for infection. CT of the abdomen pelvis without contrast shows no kidney stone, hydronephrosis, perinephric stranding. Given this I feel the patient has had thorough work-up and she is safe to be discharged home. She did request tramadol for home and I counseled her that I have no objective findings to give her narcotics for her. She was amenable. She will be discharged home in stable condition. Impression: 1. Chest pain noncardiac 2. Right flank pain unknown cause. 3. Dysuria of unknown cause. Lab Data Labs: Laboratory Results - last 24 hr 01/28/21 01/28/21 01/28/21 10:00 10:00 12:15 WBC 5.9 RBC 4.32 Hgb 11.9 L Hct 38.4 MCV 88.9 MCH 27.5 MCHC 31.0 L RDW Std Deviation 52.3 H RDW Coeff of [place] 15.9 H Plt Count 222 MPV 10.8 Immature Gran % (Auto) 0.200 Neut % (Auto) 66.8 Lymph % (Auto) 17.6 L [place] % (Auto) 10.6 H Eos % (Auto) 3.6 Baso % (Auto) 1.2 H Absolute Neuts (auto) 3.9 Absolute Lymphs (auto) 1.03 Nucleated RBC % 0 Sodium 138 Potassium 4.4 Chloride 109 H Carbon Dioxide 24.0 Anion Gap 5 BUN 18 Creatinine 0.68 Estim Creat Clear Calc 49.80 Est GFR (MDRD) Af Amer 112 Est GFR (MDRD) Non-Af 92 BUN/Creatinine Ratio 26.5 H Glucose 196 H Calcium 9.0 Troponin I High Sens 12 Urine Color Yellow Urine Clarity Sl. Cloudy Urine pH 6.0 Ur Specific [place] 1.015 Urine Protein 15 H Urine Glucose (UA) Normal Urine Ketones Negative Urine Occult Blood Negative Urine Nitrite Negative Urine Bilirubin Negative Urine Urobilinogen Normal Ur Leukocyte Esterase 100 H Urine RBC 0 SEEN Urine WBC 10-25 SEEN Ur Squamous Epith Cells 0-5 SEEN Urine Bacteria 1+ Urine Mucus 0 SEEN 01/28/21 12:30 WBC RBC Hgb Hct MCV MCH MCHC RDW Std Deviation RDW Coeff of [place] Plt Count MPV Immature Gran % (Auto) Neut % (Auto) Lymph % (Auto) [place] % (Auto) Eos % (Auto) Baso % (Auto) Absolute Neuts (auto) Absolute Lymphs (auto) Nucleated RBC % Sodium Potassium Chloride Carbon Dioxide Anion Gap BUN Creatinine Estim Creat Clear Calc Est GFR (MDRD) Af Amer Est GFR (MDRD) Non-Af BUN/Creatinine Ratio Glucose Calcium Troponin I High Sens 15 Urine Color Urine Clarity Urine pH Ur Specific [place] Urine Protein Urine Glucose (UA) Urine Ketones Urine Occult Blood Urine Nitrite Urine Bilirubin Urine Urobilinogen Ur Leukocyte Esterase Urine RBC Urine WBC Ur Squamous Epith Cells Urine Bacteria Urine Mucus Radiography Diagnostic Testing: Radiology Impression Chest X-Ray 01/28/21 10:50 IMPRESSION: 1. No airspace consolidation or pleural effusion. Electronically Signed: Conrad Schwartz MD ([place]) at 12:56 EDT , Service support , Abdomen/Pelvis CT 01/28/21 11:19 IMPRESSION: No hydronephrosis or urinary tract calcifications. Electronically Signed: Conrad Schwartz MD ([place]) at 12:06 EDT , Service support , Discharge Plan Triage Chief Complaint: Chest Pain ED Provider: Yosef Lugo Dx/Rx/DC Orders Instructions: ED Chest Pain, Noncardiac, ED Dysuria, Uncertain Cause (Adult), ED Flank Pain, Uncertain Cause Prescriptions: No Action dicyclomine 20 mg tablet 20 mg PO BID PRN (Reason: abdominal discomfort) Qty: 180 RF: 2 Myrbetriq 25 mg tablet extended release 24 hr 100 mg PO Q24H RF: 0 cholecalciferol (vitamin D3) 25 mcg (1,000 unit) capsule 50 mcg PO DAILY RF: 0 nitroglycerin 0.4 mg tablet, sublingual 0.4 mg SL ONCE Qty: 25 RF: 3 isosorbide mononitrate 30 mg tablet extended release 24 hr 30 mg PO BID Qty: 60 RF: 11 donepezil [Aricept] 10 mg tablet 20 mg PO DAILY Qty: 180 RF: 1 lisinopril 10 mg tablet 10 mg PO DAILY Qty: 90 RF: 3 calcium carbonate 600 mg calcium (1,500 mg) tablet 600 mg PO BID Qty: 180 RF: 1 Prolia 60 mg/mL syringe 60 mg subcut [id number] Qty: 1 RF: 1 ondansetron 8 mg tablet,disintegrating 8 mg PO Q12H PRN (Reason: nausea and vomiting) Qty: 30 RF: 1 tizanidine 2 mg tablet 2 mg PO QHS PRN (Reason: muscle spasticity) Qty: 30 RF: 0 albuterol sulfate 1 INHALER inhaler 2 puff INHALATION Q6H PRN PRN (Reason: Sob &/Or Wheezing) RF: 0 teriflunomide 14 mg tablet 14 mg PO DAILY RF: 0 modafinil 200 MG tablet 200 mg PO DAILY RF: 0 acetaminophen 500 MG tablet 1,000 mg PO TID PRN (Reason: pain -02/03) Qty: 1 RF: 0 ferrous sulfate 325 MG tablet 325 mg PO DAILY Qty: 30 RF: 2 ascorbic acid (vitamin C) 500 MG tablet,chewable 500 mg PO DAILY Qty: 30 RF: 0 glimepiride 4 MG tablet 4 mg PO BID Qty: 0 RF: 0 acidophilus-pectin, citrus 100 million cell-10 mg Capsule 1 cap PO DAILY RF: 0 diclofenac potassium 50 mg tablet 50 mg PO BID Qty: 20 RF: 0 ropinirole 1 mg tablet 1 mg PO BID RF: 0 cephalexin 500 mg capsule 500 mg PO Q6 Qty: 40 RF: 0 (DME) blood-glucose meter [Accu-Chek Ada Plus Meter] Misc See Rx Instructions .ROUTE .MEDSUPPLY Qty: 1 RF: 0 (DME) Accu-Chek Ada Plus test strp Strip See Rx Instructions .ROUTE .MEDSUPPLY Qty: 100 RF: 3 pantoprazole 40 mg tablet,delayed release (DR/EC) 40 mg PO DAILY Qty: 30 RF: 11 atorvastatin 40 mg tablet 40 mg PO DAILY Qty: 30 RF: 11 carvedilol 12.5 mg tablet 12.5 mg PO BID Qty: 60 RF: 11 duloxetine [Cymbalta] 30 mg capsule,delayed release(DR/EC) 30 mg PO BID Qty: 60 RF: 2 hydroxyzine HCl 50 mg tablet 50 mg PO TID Qty: 90 RF: 2 sucralfate 1 gram tablet 1 g PO 4X/DAY Qty: 120 RF: 1 conj estrog-medroxyprogest raquel 0.625-2.5 mg tablet 1 tab PO DAILY Qty: 28 RF: 0 pioglitazone 30 mg tablet 30 mg PO DAILY Qty: 90 RF: 0 potassium chloride 20 mEq tablet extended release 20 meq PO DAILY Qty: 90 RF: 0 Primary Care Provider: Tom Sherman Referrals: Tom Sherman MD [Primary Care Provider] - Disposition Disposition: Home, Self Care Discharge Date/Time: 01/28/21 14:43
[2021-01-28] MEDS: Morphine 4 MG/ML Syringe IV ×2 (11:26→12:57)
[2021-01-28] MEDS: Ondansetron 4 MG/2 ML Vial IV (11:26)
[2021-01-28 11:27] VITALS: PULSE 82; RESP 16; O2SAT 96
[2021-01-28 12:14] VITALS: BP 169/60; PULSE 88; RESP 14; O2SAT 95
[2021-01-28 12:19] LABS: Mucous, Urine 0 SEEN /hpf (<or=2+); Red Blood Cells-Urine 0 SEEN /hpf (0-5)
[2021-01-28 12:22] LABS: Color, Urine Yellow (Yellow); Glucose, Dipstick Normal (Normal); Ketone-Dipstick Negative (Negative); Leukocyte Esterase-Dipstick 100 /ul (Negative); Nitrite-Dipstick Negative (Negative); Occult Blood-Urine Negative /ul (Negative); Protein-Dipstick 15 mg/dl (Negative); Specific Gravity, Urine 1.015 (1.002-1.030); Urine Bilirubin Dipstick Negative (Negative); Urine Clarity Sl. Cloudy (Clear); Urine Urobilinogen Normal (Normal)
[2021-01-28 12:29] LABS: Bacteria 1+ /hpf (None Seen); Squamous Epithelial Cells - UA 0-5 SEEN /hpf (5-10); White Blood Cells 10-25 SEEN /hpf (0-5)
[2021-01-28 13:05] LABS: Troponin-I HS 15 pg/mL (3.0-54.0)
[2021-01-28 13:07] VITALS: BP 165/77; PULSE 58; RESP 16; O2SAT 96
[2021-01-28 14:25] VITALS: BP 183/81; PULSE 90; RESP 20; O2SAT 96
== END 2021-01-28 14:43 | disposition home or self-care (01) ==
PROVIDERS: Emergency Provider Student in an Organized Health Care Education/Training Program; PCP Internal Medicine
DX: R07.89 Other chest pain (principal); R10.9 Unspecified abdominal pain; R30.0 Dysuria; I25.10 Atherosclerotic heart disease of native coronary artery without angina pectoris; I25.2 Old myocardial infarction; E11.9 Type 2 diabetes mellitus without complications; I11.0 Hypertensive heart disease with heart failure; I25.5 Ischemic cardiomyopathy; I50.22 Chronic systolic (congestive) heart failure; F17.210 Nicotine dependence, cigarettes, uncomplicated; I48.0 Paroxysmal atrial fibrillation; J44.9 Chronic obstructive pulmonary disease, unspecified; Z79.84 Long term (current) use of oral hypoglycemic drugs; Z87.442 Personal history of urinary calculi; Z79.899 Other long term (current) drug therapy
CPT/HCPCS: 36415; 71045; 74176; 80048; 81001; 84484; 85025; 93005; 96374; 96375; 96376; 99284; A4216; J2405

== ENCOUNTER 2021-01-30 18:05 | Emergency (ER) | payer MEDICARE, MEDICAID, SELFPAY ==
[2016-07-13 11:45] VITALS: BMI 31.4
[2021-01-30 18:06] VITALS: BP 147/71; PULSE 61; RESP 16; TEMP 36.1; O2SAT 98; BMI 28.9
--- NOTE | 2021-01-30 18:43 | EKG12_ITS ---
Test Reason : HYPERTENSION Blood Pressure : / mmHG Vent. Rate : 058 BPM Atrial Rate : 058 BPM P-R Int : 152 ms QRS Dur : 096 ms QT Int : 448 ms P-R-T Axes : 041 -41 103 degrees QTc Int : 439 ms Sinus bradycardia Left axis deviation Low voltage QRS Inferior infarct , age undetermined Abnormal ECG Confirmed by JACQUELINE WITT, KASSANDRA ([id number]), publication editor YUNG MUNGUIA ([id number]) on 02/04/2021 10:47:53 AM Referred By: CISCO Confirmed By:LILLY PHILLIPS MD
--- NOTE | 2021-01-30 18:43 | RAD_ITS ---
STUDY: X-RAY CHEST REASON FOR EXAM: Female, 65 years old. Chest pain. TECHNIQUE: Single AP portable view of the chest. COMPARISON: 01/28/2021. FINDINGS: The lungs are clear and expanded. There is no demonstrated pleural abnormality. Normal size heart. Normal mediastinum and sara. Normal visualized pulmonary arteries. Normal visualized aortic arch and descending thoracic aorta. There are no osseous changes. There is no demonstrated abnormality of the visualized soft tissue structures of the upper abdomen. RAD/Chest 1 View (Portable) IMPRESSION: No acute cardiopulmonary disease or interval change. Electronically Signed: Casey Dominguez DO at 19:21 EDT Tel [phone], Service support ,
--- NOTE | 2021-01-30 18:45 | EDS_ITS ---
HPI History of Present Illness Chief Complaint: Hypertension Informant: patient Narrative Narrative: Presents by EMS from home for sudden onset of chest pain starting at 530 after waking up from a nap. Also states her blood pressure systolic 205 at home. She reports she saw her PCP office today noted blood pressure systolic 146 note was reviewed and confirmed this. Her lisinopril was increased to 20 mg she did take extra 10 mg dose when she got home. History of coronary stents in [address] Butler. She states she was cathed this year. There is no stenting placed. History of gastric ulcers. Denies cough. Patient was seen 2 days from the ED stating she was sent from her urology office due to high blood pressure. Work-up was negative. Today reporting urine frequency and nausea. Reviewing records she is seeing cardiology recently and records she had a noted heart cath September of this year noting patent stent of the LAD and second diagonal. Prior similar symptoms: Yes PFSH PFSH Medical History Anxiety Apical mural thrombus with acute TN Atherosclerotic heart disease of redding coronary artery without angina pectoris Cervical spinal stenosis Chronic back pain Chronic systolic (congestive) heart failure Closed right tibial fracture COPD (chronic obstructive pulmonary disease) Diabetes mellitus type 2 in nonobese Essential (primary) hypertension Hiatal hernia History of ST elevation myocardial infarction (STEMI) HTN (hypertension) IBS (irritable bowel syndrome) Irritable bowel syndrome with diarrhea Ischemic cardiomyopathy Left ventricular hypertrophy Major depression Multiple sclerosis Nicotine abuse BRYAN (obstructive sleep apnea) Osteoporosis Pain of right lower extremity Paroxysmal atrial fibrillation RLS (restless legs syndrome) Suicidal ideation Tachycardia Takotsubo syndrome Vitamin B12 deficiency Home Medications albuterol sulfate 2 puff INHALATION Q6H PRN PRN 10/23/17 [History Last Taken 06/08/19] teriflunomide 14 mg PO DAILY 09/20/19 [History Last Taken 08/14/20 09:00] modafinil 200 mg PO DAILY 12/12/19 [History Last Taken 08/14/20 09:00] dicyclomine 20 mg tablet 20 mg PO BID PRN #180 tablet 03/15/20 [Rx Last Taken 08/14/20 13:00] acetaminophen 1,000 mg PO TID PRN #1 tablet 07/29/20 [Rx Last Taken Unknown] blood sugar diagnostic #100 each 08/10/20 [Rx Last Taken Unknown] blood-glucose meter #1 each 08/10/20 [Rx Last Taken Unknown] ascorbic acid (vitamin C) 500 mg PO DAILY #30 tab.chew 08/17/20 [Rx Last Taken Unknown] glimepiride 4 mg PO BID #0 08/17/20 [Rx Last Taken 08/14/20 09:00] atorvastatin 40 mg tablet 40 mg PO DAILY #30 tab 09/18/20 [Rx Last Taken Unknown] cholecalciferol (vitamin D3) 25 mcg (1,000 unit) capsule 50 mcg PO DAILY cap 09/18/20 [History Last Taken Unknown] mirabegron 25 mg tablet,extended release 24 hr 100 mg PO Q24H tab 09/18/20 [History Last Taken Unknown] nitroglycerin 0.4 mg sublingual tablet 0.4 mg SL ONCE #25 tablet 09/18/20 [Rx Last Taken Unknown] pantoprazole 40 mg tablet,delayed release 40 mg PO DAILY #30 tablet 09/18/20 [Rx Last Taken Unknown] acidophilus-pectin, citrus 1 cap PO DAILY 09/23/20 [History Last Taken Unknown] donepezil 10 mg tablet 20 mg PO DAILY #180 tab 10/02/20 [Rx Last Taken Unknown] isosorbide mononitrate 30 mg tablet,extended release 24 hr 30 mg PO BID #60 tab 10/08/20 [Rx Last Taken Unknown] diclofenac potassium 50 mg PO BID #20 tab 11/12/20 [Rx Last Taken Unknown] carvedilol 12.5 mg tablet 12.5 mg PO BID #60 tab 11/30/20 [Rx Last Taken Unknown] duloxetine 30 mg capsule,delayed release 30 mg PO BID #60 cap 12/05/20 [Rx Last Taken Unknown] hydroxyzine HCl 50 mg tablet 50 mg PO TID #90 tab 12/20/20 [Rx Last Taken Unknown] calcium carbonate 600 mg calcium (1,500 mg) tablet 600 mg PO BID #180 tab 12/25/20 [Rx Last Taken Unknown] denosumab 60 mg/mL subcutaneous syringe 60 mg SUBCUT [id number] #1 ml 12/25/20 [Rx Last Taken Unknown] ondansetron 8 mg disintegrating tablet 8 mg PO Q12H PRN #30 tab 12/25/20 [Rx Last Taken Unknown] tizanidine 2 mg tablet 2 mg PO QHS PRN #30 tab 12/25/20 [Rx Last Taken Unknown] sucralfate 1 gram tablet 1 g PO 4X/DAY #120 tablet 12/28/20 [Rx Last Taken Unknown] cephalexin 500 mg PO Q6 #40 capsule 01/06/21 [Rx Last Taken Unknown] conj estrogen-medroxyprogesterone 0.625 mg-2.5 mg tablet 1 tab PO DAILY #28 tab 01/11/21 [Rx Last Taken Unknown] pioglitazone 30 mg tablet 30 mg PO DAILY #90 tab 01/15/21 [Rx Last Taken Unknown] potassium chloride 20 mEq tablet,extended release 20 meq PO DAILY #90 tab [Rx Last Taken Unknown] lisinopril 20 mg tablet 20 mg PO DAILY #90 tab 01/30/21 [Rx Last Taken Unknown] ropinirole 1 mg tablet 1 mg PO BID #180 tab 01/30/21 [Rx Last Taken Unknown] Allergy/AdvReac Type Severity Reaction Status Date / Time indomethacin [From Indocin] Allergy Hives Verified 01/30/21 18:09 indomethacin sodium Allergy Hives Verified 01/30/21 18:09 [From Indocin] iodine Allergy Hives Verified 01/30/21 18:09 propoxyphene napsylate Allergy Out of Verified 01/30/21 18:09 [From Darvocet-N] control aripiprazole [From Abilify] AdvReac Other Verified 01/30/21 18:09 aspirin AdvReac Upset Verified 01/30/21 18:09 Stomach clindamycin AdvReac Nausea Verified 01/30/21 18:09 metformin AdvReac Other Verified 01/30/21 18:09 sumatriptan [From Imitrex] AdvReac Vomiting Verified 01/30/21 18:09 Family History Father Cancer Lung cancer Mother Cancer Pancreatic cancer Surgical History History of amputation of left great toe History of back surgery History of cervical discectomy History of coronary artery stent placement (04/08/16) History of endoscopy History of left heart catheterization (09/25/20) History of left knee surgery History of loop recorder (06/2014) History of tonsillectomy and adenoidectomy Social History household members: none Smoking Status: Current every day smoker tobacco type: cigarettes alcohol intake: never substance use type: does not use caffeine: Yes Type: coffee Number of servings: 1 what type of physical activity do you participate in: none and other details: Physical Therapy ROS ROS ED Constitutional Constitutional ED: Denies chills, fever(s) or sweats Eyes Eyes: Denies change in vision ENT ENT ED: Denies dysphagia or sore throat Cardiovascular Cardiovascular: Reports chest pain; Denies leg edema, palpitations or racing heartbeat Respiratory/Chest Respiratory/Chest: Denies cough, dyspnea or dyspnea on exertion Gastrointestinal Gastrointestinal: Reports nausea; Denies abdominal pain, diarrhea or vomiting Genitourinary Genitourinary ED: Reports urinary frequency; Denies dysuria or hematuria Musculoskeletal Musculoskeletal: Denies back pain, extremity pain or neck pain Integumentary Denies rash or wounds Neurologic Neurologic: Denies headache(s), paresthesias or weakness EXAM Physical Exam Const Vital Signs: 01/30/21 18:06 01/30/21 19:49 01/30/21 20:03 Temperature 97.0 F L Temperature Source Temporal Pulse Rate 61 61 Respiratory Rate 16 16 Respiratory Pattern Normal Blood Pressure 147/71 H 165/72 H Blood Pressure Mean 96 103 Pulse Ox 98 98 Oxygen Delivery Method Room Air Room Air Room Air 01/30/21 22:03 Temperature Temperature Source Pulse Rate 65 Respiratory Rate 18 Respiratory Pattern Blood Pressure 156/64 H Blood Pressure Mean Pulse Ox 100 Oxygen Delivery Method Positive well nourished and well developed General Appearance ED: well developed and NAD HEENT Reports moist mucous membranes normocephalic and atraumatic Eyes PERRL, EOMs intact bilaterally and conjunctivae normal General Eye ED: Yes normal appearance of both eyes Neck no lymphadenopathy and supple General: Negative for tenderness Chest Wall Chest: Negative for tenderness Resp normal respiratory effort and normal air movement Effort and Inspection: symmetric chest movement; Negative for respiratory distress Cardio regular rate, regular rhythm and no murmurs Peripheral Pulses: pulses 2+ throughout GI normal to inspection, nondistended, normoactive bowel sounds and non-tender Palpation: Negative for guarding or rebound tenderness present Back/Spine no CVA tenderness and no thoracic nor lumbar tenderness Extremity normal to inspection General Extremety ED: Negative for edema or tenderness General Extremity: Negative for edema Neuro oriented x3 and no sensory deficits noted Sensorium / Orientation: awake and alert Skin no rashes or lesions noted and no wounds MDM MDM MDM Narrative Medical decision making narrative: Patient blood pressure arrival systolic 140s. Similar to her office numbers. This is being managed as an outpatient with medication adjustments. However she reports chest pains, she had a heart cath 4 months ago with patent vessels and patent stents. Low suspicion for cardiac disease with this. She has had multiple visits for chest pains. EKG shows T wave flattening lateral leads. Troponin x2 were negative. Her chest x-ray is negative. She reported headache pain for which Tylenol was given with improvement. Urine with frequency noted leukocytes that were minimal. Multiple reevaluation she is stable. She will follow-up with her PCP for blood pressure control. 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 All questions were answered. Lab Data Attestation: I reviewed the patient's lab results. Labs: Laboratory Results - last 24 hr 01/30/21 01/30/21 01/30/21 19:10 19:15 19:15 WBC 5.3 RBC 4.05 L Hgb 11.0 L Hct 36.4 L MCV 89.9 MCH 27.2 MCHC 30.2 L RDW Std Deviation 52.1 H RDW Coeff of [place] 15.7 H Plt Count 178 MPV 10.1 Immature Gran % (Auto) 0.400 Neut % (Auto) 55.8 Lymph % (Auto) 24.8 [place] % (Auto) 13.4 H Eos % (Auto) 4.5 Baso % (Auto) 1.1 H Absolute Neuts (auto) 3.0 Absolute Lymphs (auto) 1.31 Nucleated RBC % 0 Sodium 138 Potassium 4.1 Chloride 107 Carbon Dioxide 26.0 Anion Gap 5 BUN 20 H Creatinine 0.72 Estim Creat Clear Calc 49.80 Est GFR (MDRD) Af Amer 104 Est GFR (MDRD) Non-Af 86 BUN/Creatinine Ratio 27.7 H Glucose 166 H Calcium 9.5 Troponin I High Sens 12 Urine Color Yellow Urine Clarity Clear Urine pH 6.0 Ur Specific [place] 1.015 Urine Protein Negative Urine Glucose (UA) Normal Urine Ketones Negative Urine Occult Blood Negative Urine Nitrite Negative Urine Bilirubin Negative Urine Urobilinogen Normal Ur Leukocyte Esterase 25 H Urine RBC 0 SEEN Urine WBC 0 SEEN Ur Squamous Epith Cells 0-5 SEEN Urine Bacteria 0 SEEN Urine Mucus 0 SEEN 01/30/21 21:15 WBC RBC Hgb Hct MCV MCH MCHC RDW Std Deviation RDW Coeff of [place] Plt Count MPV Immature Gran % (Auto) Neut % (Auto) Lymph % (Auto) [place] % (Auto) Eos % (Auto) Baso % (Auto) Absolute Neuts (auto) Absolute Lymphs (auto) Nucleated RBC % Sodium Potassium Chloride Carbon Dioxide Anion Gap BUN Creatinine Estim Creat Clear Calc Est GFR (MDRD) Af Amer Est GFR (MDRD) Non-Af BUN/Creatinine Ratio Glucose Calcium Troponin I High Sens 13 Urine Color Urine Clarity Urine pH Ur Specific [place] Urine Protein Urine Glucose (UA) Urine Ketones Urine Occult Blood Urine Nitrite Urine Bilirubin Urine Urobilinogen Ur Leukocyte Esterase Urine RBC Urine WBC Ur Squamous Epith Cells Urine Bacteria Urine Mucus Radiography Chest X-Ray - ED: 1 View, Read by ED Physician, Read by Radiologist and No Acute Disease Diagnostic Testing: Clinical Impression(s) from Imaging Studies Chest X-Ray 01/30/21 18:43 IMPRESSION: No acute cardiopulmonary disease or interval change. Electronically Signed: Casey Dominguez DO at 19:21 EDT Tel [phone], Service support , EKG Initial EKG: Attestation: I personally reviewed and interpreted this EKG as follows: Comments: Sinus rate of 58, no ST changes. T wave flattening lateral leads. Discharge Plan Triage Chief Complaint: Hypertension ED Provider: Darron Carmona Dx/Rx/DC Orders Clinical Impression: Chest pain, Elevated blood pressure reading in office with diagnosis of hypertension Instructions: ED Chest Pain, Noncardiac, ED Hypertension, Established Prescriptions: No Action dicyclomine 20 mg tablet 20 mg PO BID PRN (Reason: abdominal discomfort) Qty: 180 RF: 2 Myrbetriq 25 mg tablet extended release 24 hr 100 mg PO Q24H RF: 0 cholecalciferol (vitamin D3) 25 mcg (1,000 unit) capsule 50 mcg PO DAILY RF: 0 nitroglycerin 0.4 mg tablet, sublingual 0.4 mg SL ONCE Qty: 25 RF: 3 isosorbide mononitrate 30 mg tablet extended release 24 hr 30 mg PO BID Qty: 60 RF: 11 donepezil [Aricept] 10 mg tablet 20 mg PO DAILY Qty: 180 RF: 1 calcium carbonate 600 mg calcium (1,500 mg) tablet 600 mg PO BID Qty: 180 RF: 1 Prolia 60 mg/mL syringe 60 mg subcut [id number] Qty: 1 RF: 1 ondansetron 8 mg tablet,disintegrating 8 mg PO Q12H PRN (Reason: nausea and vomiting) Qty: 30 RF: 1 tizanidine 2 mg tablet 2 mg PO QHS PRN (Reason: muscle spasticity) Qty: 30 RF: 0 lisinopril 20 mg tablet 20 mg PO DAILY Qty: 90 RF: 3 ropinirole 1 mg tablet 1 mg PO BID Qty: 180 RF: 1 albuterol sulfate 1 INHALER inhaler 2 puff INHALATION Q6H PRN PRN (Reason: Sob &/Or Wheezing) RF: 0 teriflunomide 14 mg tablet 14 mg PO DAILY RF: 0 modafinil 200 MG tablet 200 mg PO DAILY RF: 0 acetaminophen 500 MG tablet 1,000 mg PO TID PRN (Reason: pain -02/03) Qty: 1 RF: 0 ascorbic acid (vitamin C) 500 MG tablet,chewable 500 mg PO DAILY Qty: 30 RF: 0 glimepiride 4 MG tablet 4 mg PO BID Qty: 0 RF: 0 acidophilus-pectin, citrus 100 million cell-10 mg Capsule 1 cap PO DAILY RF: 0 diclofenac potassium 50 mg tablet 50 mg PO BID Qty: 20 RF: 0 cephalexin 500 mg capsule 500 mg PO Q6 Qty: 40 RF: 0 (DME) blood-glucose meter [Accu-Chek Ada Plus Meter] Misc See Rx Instructions .ROUTE .MEDSUPPLY Qty: 1 RF: 0 (DME) Accu-Chek Ada Plus test strp Strip See Rx Instructions .ROUTE .MEDSUPPLY Qty: 100 RF: 3 pantoprazole 40 mg tablet,delayed release (DR/EC) 40 mg PO DAILY Qty: 30 RF: 11 atorvastatin 40 mg tablet 40 mg PO DAILY Qty: 30 RF: 11 carvedilol 12.5 mg tablet 12.5 mg PO BID Qty: 60 RF: 11 duloxetine [Cymbalta] 30 mg capsule,delayed release(DR/EC) 30 mg PO BID Qty: 60 RF: 2 hydroxyzine HCl 50 mg tablet 50 mg PO TID Qty: 90 RF: 2 sucralfate 1 gram tablet 1 g PO 4X/DAY Qty: 120 RF: 1 conj estrog-medroxyprogest raquel 0.625-2.5 mg tablet 1 tab PO DAILY Qty: 28 RF: 0 pioglitazone 30 mg tablet 30 mg PO DAILY Qty: 90 RF: 0 potassium chloride 20 mEq tablet extended release 20 meq PO DAILY Qty: 90 RF: 0 Primary Care Provider: Tom Sherman Referrals: Elias Butler MD [STAFF PHYSICIAN] - 3-5 Days Tom Sherman MD [Primary Care Provider] - Activity Restrictions/Additional Instructions: Follow medication adjustments per your PCP for your blood pressure. Recheck blood pressure in 1 week. Follow-up with Dr. Butler for your chest pain symptoms. Disposition Disposition: Home, Self Care Discharge Date/Time: 01/30/21 22:04
[2021-01-30 19:17] LABS: Bacteria 0 SEEN /hpf (None Seen); Mucous, Urine 0 SEEN /hpf (<or=2+); Red Blood Cells-Urine 0 SEEN /hpf (0-5); White Blood Cells 0 SEEN /hpf (0-5)
[2021-01-30 19:18] LABS: Color, Urine Yellow (Yellow); Glucose, Dipstick Normal (Normal); Ketone-Dipstick Negative (Negative); Leukocyte Esterase-Dipstick 25 /ul (Negative); Nitrite-Dipstick Negative (Negative); Occult Blood-Urine Negative /ul (Negative); Protein-Dipstick Negative (Negative); Specific Gravity, Urine 1.015 (1.002-1.030); Urine Bilirubin Dipstick Negative (Negative); Urine Clarity Clear (Clear); Urine Urobilinogen Normal (Normal)
[2021-01-30 19:22] LABS: Absolute Lymphocyte Count 1.31 X10^3/uL (0.83-4.51); Basophil# 0.06 X10^3/uL; Basophil% 1.1 % (0-1); Eosinophil# 0.24 X10^3/uL; Eosinophils% 4.5 % (0-5); Hematocrit 36.4 % (37-47); Lymphocyte # 1.31 X10^3/ul (0.83-4.51); Lymphocyte % 24.8 % (19-41); Mean Corp Hgb Conc 30.2 g/dL (32-36); Mean Corpuscular Hgb 27.2 pg (27.0-32.0); Mean Corpuscular Volume 89.9 fL (81-99); Mean Platelet Vol. 10.1 fl (6.2-12.0); Monocyte# 0.71 X10^3/uL; Monocyte% 13.4 % (0-10); NRBC Flagged by Analyzer 0 % (0-5); Neutrophil # 2.95 X10^3/uL (2.7-7.7); Neutrophil % 55.8 % (47-70); Platelet Count 178 K/mm3 (150-450); RBC Distribution Width CV 15.7 % (11.6-14.6); RBC Distribution Width SD 52.1 fl (35.1-43.9); Red Blood Count 4.05 M/mm3 (4.2-5.4); White Blood Count 5.3 K/mm3 (4.4-11.0)
[2021-01-30 19:52] LABS: Anion Gap 5 (5-15); BUN 20 mg/dL (7-18); BUN/Creat Ratio 27.7 RATIO (10-20); Calcium,Total 9.5 mg/dL (8.5-10.1); Chloride 107 mmol/L (98-107); Creatinine, Serum 0.72 mg/dL (0.55-1.02); EST Glomerular Filtration Rate 86 mL/min (>60); Est Glom Filt Rate - Afr Amer 104 mL/min (>60); Glucose 166 mg/dL (74-106); Potassium 4.1 mmol/L (3.5-5.1); Sodium Level 138 mmol/L (136-145); Troponin-I HS 12 pg/mL (3.0-54.0)
[2021-01-30 19:59] LABS: Squamous Epithelial Cells - UA 0-5 SEEN /hpf (5-10)
[2021-01-30] MEDS: Ondansetron 4 MG/2 ML Vial IV (20:01)
[2021-01-30 20:03] VITALS: BP 165/72; PULSE 61; RESP 16; O2SAT 98
[2021-01-30] MEDS: Acetaminophen 500 MG Tablet 1000 MG PO (20:50)
[2021-01-30 21:42] LABS: Troponin-I HS 13 pg/mL (3.0-54.0)
[2021-01-30 22:03] VITALS: BP 156/64; PULSE 65; RESP 18; O2SAT 100
== END 2021-01-30 22:04 | disposition home or self-care (01) ==
PROVIDERS: Emergency Provider Emergency Medicine; PCP Internal Medicine
DX: R07.9 Chest pain, unspecified (principal); I11.0 Hypertensive heart disease with heart failure; I50.22 Chronic systolic (congestive) heart failure; I25.10 Atherosclerotic heart disease of native coronary artery without angina pectoris; I48.0 Paroxysmal atrial fibrillation; I25.5 Ischemic cardiomyopathy; I25.2 Old myocardial infarction; E11.9 Type 2 diabetes mellitus without complications; J44.9 Chronic obstructive pulmonary disease, unspecified; G25.81 Restless legs syndrome; G35 Multiple sclerosis; M81.0 Age-related osteoporosis without current pathological fracture; F32.9 Major depressive disorder, single episode, unspecified; F41.9 Anxiety disorder, unspecified; F17.210 Nicotine dependence, cigarettes, uncomplicated; Z95.5 Presence of coronary angioplasty implant and graft; Z79.84 Long term (current) use of oral hypoglycemic drugs; Z79.899 Other long term (current) drug therapy
CPT/HCPCS: 71045; 80048; 81001; 84484; 85025; 93005; 96374; 99285; A4216; J2405

== ENCOUNTER 2021-02-14 07:05 | Emergency (ER) | payer MEDICARE, MEDICAID, SELFPAY ==
[2016-07-13 11:45] VITALS: BMI 31.4
[2021-02-14 07:06] VITALS: BP 161/79; PULSE 71; RESP 18; TEMP 36.8; O2SAT 97; BMI 32.3
--- NOTE | 2021-02-14 08:24 | EDS_ITS ---
HPI History of Present Illness Chief Complaint: Abd Pain Informant: patient and EMS Narrative Narrative: 65-year-old female presents the emergency room with abdominal pain. Patient states she recently had an ER she also notes a hiatal hernia. She is taking Carafate and pantoprazole. She states that she woke during the night with a burning stabbing pain on the left side of her abdomen that moves to the right side of her abdomen. She notes one episode of emesis. She states that she cannot take pain anymore. She notes that she has had pancreatitis in the past and wonders if this is similar. Patient is a super user of the emergency department. [facility] Medical History Anxiety Apical mural thrombus with acute CT Atherosclerotic heart disease of [place] coronary artery without angina pectoris Cervical spinal stenosis Chronic back pain Chronic systolic (congestive) heart failure Closed right tibial fracture COPD (chronic obstructive pulmonary disease) Diabetes mellitus type 2 in nonobese Essential (primary) hypertension Flank pain Fracture of distal end of right tibia Hematemesis Hiatal hernia History of peptic ulcer disease History of ST elevation myocardial infarction (STEMI) Hyperglycemia due to type 2 diabetes mellitus IBS (irritable bowel syndrome) Irritable bowel syndrome with diarrhea Ischemic cardiomyopathy Left ventricular hypertrophy Major depression Multiple sclerosis Nicotine abuse Nondisplaced pilon fracture of right tibia, initial encounter for closed fracture BRYAN (obstructive sleep apnea) Osteoporosis Pain of right lower extremity Paroxysmal atrial fibrillation RLS (restless legs syndrome) Suicidal ideation Tachycardia Takotsubo syndrome Vitamin B12 deficiency Home Medications albuterol sulfate 2 puff INHALATION Q6H PRN PRN 10/23/17 [History Last Taken 06/08/19] teriflunomide 14 mg PO DAILY 09/20/19 [History Last Taken 08/14/20 09:00] modafinil 200 mg PO DAILY 12/12/19 [History Last Taken 08/14/20 09:00] dicyclomine 20 mg tablet 20 mg PO BID PRN #180 tablet 03/15/20 [Rx Last Taken 08/14/20 13:00] acetaminophen 1,000 mg PO TID PRN #1 tablet 07/29/20 [Rx Last Taken Unknown] blood sugar diagnostic #100 each 08/10/20 [Rx Last Taken Unknown] ascorbic acid (vitamin C) 500 mg PO DAILY #30 tab.chew 08/17/20 [Rx Last Taken Unknown] atorvastatin 40 mg tablet 40 mg PO DAILY #30 tab 09/18/20 [Rx Last Taken Unknown] cholecalciferol (vitamin D3) 25 mcg (1,000 unit) capsule 50 mcg PO DAILY cap 09/18/20 [History Last Taken Unknown] mirabegron 25 mg tablet,extended release 24 hr 100 mg PO Q24H tab 09/18/20 [History Last Taken Unknown] nitroglycerin 0.4 mg sublingual tablet 0.4 mg SL ONCE #25 tablet 09/18/20 [Rx Last Taken Unknown] pantoprazole 40 mg tablet,delayed release 40 mg PO DAILY #30 tablet 09/18/20 [Rx Last Taken Unknown] acidophilus-pectin, citrus 1 cap PO DAILY 09/23/20 [History Last Taken Unknown] donepezil 10 mg tablet 20 mg PO DAILY #180 tab 10/02/20 [Rx Last Taken Unknown] isosorbide mononitrate 30 mg tablet,extended release 24 hr 30 mg PO BID #60 tab 10/08/20 [Rx Last Taken Unknown] diclofenac potassium 50 mg PO BID #20 tab 11/12/20 [Rx Last Taken Unknown] hydroxyzine HCl 50 mg tablet 50 mg PO TID #90 tab 12/20/20 [Rx Last Taken Unknown] calcium carbonate 600 mg calcium (1,500 mg) tablet 600 mg PO BID #180 tab 12/25/20 [Rx Last Taken Unknown] denosumab 60 mg/mL subcutaneous syringe 60 mg SUBCUT [id number] #1 ml 12/25/20 [Rx Last Taken Unknown] ondansetron 8 mg disintegrating tablet 8 mg PO Q12H PRN #30 tab 12/25/20 [Rx Last Taken Unknown] tizanidine 2 mg tablet 2 mg PO QHS PRN #30 tab 12/25/20 [Rx Last Taken Unknown] sucralfate 1 gram tablet 1 g PO 4X/DAY #120 tablet 12/28/20 [Rx Last Taken Unknown] conj estrogen-medroxyprogesterone 0.625 mg-2.5 mg tablet 1 tab PO DAILY #28 tab 01/11/21 [Rx Last Taken Unknown] pioglitazone 30 mg tablet 30 mg PO DAILY #90 tab 01/15/21 [Rx Last Taken Unknown] potassium chloride 20 mEq tablet,extended release 20 meq PO DAILY #90 tab 01/15/21 [Rx Last Taken Unknown] lisinopril 20 mg tablet 20 mg PO DAILY #90 tab 01/30/21 [Rx Last Taken Unknown] ropinirole 1 mg tablet 1 mg PO BID #180 tab 01/30/21 [Rx Last Taken Unknown] carvedilol 25 mg tablet 25 mg PO BID #180 tab 02/05/21 [Rx Last Taken Unknown] tramadol 50 mg tablet 50 mg PO Q12H PRN #14 tab 02/05/21 [Rx Last Taken Unknown] duloxetine 30 mg capsule,delayed release 30 mg PO BID #60 cap 02/11/21 [Rx Last Taken Unknown] glimepiride 4 mg tablet 4 mg PO BID #60 tab 02/11/21 [Rx Last Taken Unknown] Allergy/AdvReac Type Severity Reaction Status Date / Time indomethacin [From Indocin] Allergy Hives Verified 02/01/21 13:04 indomethacin sodium Allergy Hives Verified 02/01/21 13:04 [From Indocin] iodine Allergy Hives Verified 02/01/21 13:04 propoxyphene napsylate Allergy Out of Verified 02/01/21 13:04 [From Darvocet-N] control aripiprazole [From Abilify] AdvReac Other Verified 02/01/21 13:04 aspirin AdvReac Upset Verified 02/01/21 13:04 Stomach clindamycin AdvReac Nausea Verified 02/01/21 13:04 metformin AdvReac Other Verified 02/01/21 13:04 sumatriptan [From Imitrex] AdvReac Vomiting Verified 02/01/21 13:04 Family History Father Cancer Lung cancer Mother Cancer Pancreatic cancer Surgical History History of amputation of left great toe History of back surgery History of cervical discectomy History of coronary artery stent placement (04/08/16) History of endoscopy History of left heart catheterization (09/25/20) History of left knee surgery History of loop recorder (06/2014) History of tonsillectomy and adenoidectomy Social History household members: none Smoking Status: Current every day smoker tobacco type: cigarettes alcohol intake: never substance use type: does not use caffeine: Yes Type: coffee Number of servings: 1 what type of physical activity do you participate in: none and other details: Physical Therapy ROS ROS ED Constitutional Constitutional ED: Denies chills or weight loss Eyes Eyes: Denies change in vision or diplopia ENT ENT ED: Denies ear pain, rhinorrhea or sore throat Cardiovascular Cardiovascular: Denies chest pain, orthopnea, palpitations or racing heartbeat Respiratory/Chest Respiratory/Chest: Denies cough, dyspnea or orthopnea Gastrointestinal Gastrointestinal: Reports abdominal pain, nausea and vomiting; Denies diarrhea Genitourinary Genitourinary ED: Denies dysuria, hematuria or urinary frequency Musculoskeletal Musculoskeletal: Denies arthralgias or myalgias Integumentary Denies abscess or rash Neurologic Neurologic: Denies headache(s) or weakness Psychiatric Psychiatric: Denies anxiety, depression, suicidal ideation or suicidal thoughts Endocrine Endocrinology: Denies polydipsia, polyphagia or polyuria Allergic/Immunologic Allergic/Immunologic ED: Denies mouth swelling, tongue swelling or urticaria EXAM Physical Exam Const Vital Signs: 02/14/21 07:06 02/14/21 09:10 Temperature 98.2 F Temperature Source Oral Pulse Rate 71 82 Respiratory Rate 18 16 Blood Pressure 161/79 H 117/63 Blood Pressure Mean 106 81 Pulse Ox 97 97 Oxygen Delivery Method Room Air Room Air Positive well nourished and well developed General Appearance ED: well developed HEENT Reports normocephalic, head/scalp atraumatic and moist mucous membranes Eyes PERRL and EOMs intact bilaterally Neck no lymphadenopathy, supple and no JVD Resp normal respiratory effort and clear to auscultation bilaterally Cardio regular rate, regular rhythm and no murmurs GI non-tender Auscultation: normoactive bowel sounds Palpation: soft and tender epigastric and LUQ Back/Spine no CVA tenderness and normal ROM Extremity normal to inspection General Extremety ED: Negative for edema General Extremity: Negative for edema Neuro oriented x3 and CN's II-XII intact bilaterally Sensorium / Orientation: alert Motor Exam: strength 5/5 throughout Psych mental status grossly normal Mood & Affect: Negative for depressed or tearful Skin no rashes or lesions noted and no wounds MDM MDM MDM Narrative Medical decision making narrative: White blood cell count is 4.4 hemoglobin 12.1. The patient's glucose 264. Lipase 327. Liver enzymes normal. Her abdomen is nonsurgical. GI cocktail did not relieve her symptoms. I will give her a dose of Bentyl. Patient will be discharged home. I am going to refer her for social work to discuss a care plan. Lab Data Attestation: I reviewed the patient's lab results. Labs: Laboratory Results - last 24 hr 02/14/21 02/14/21 08:33 08:33 WBC 4.4 RBC 4.41 Hgb 12.1 Hct 38.2 MCV 86.6 MCH 27.4 MCHC 31.7 L RDW Std Deviation 46.1 H RDW Coeff of [place] 14.5 Plt Count 123 L MPV 10.6 Immature Gran % (Auto) 0.700 Neut % (Auto) 75.2 H Lymph % (Auto) 12.3 L [place] % (Auto) 9.1 Eos % (Auto) 1.8 Baso % (Auto) 0.9 Absolute Neuts (auto) 3.3 Absolute Lymphs (auto) 0.54 L Nucleated RBC % 0 Sodium 132 L Potassium 3.9 Chloride 104 Carbon Dioxide 20.0 L Anion Gap 8 BUN 21 H Creatinine 0.95 Estim Creat Clear Calc 52.42 Est GFR (MDRD) Af Amer 76 Est GFR (MDRD) Non-Af 63 BUN/Creatinine Ratio 22.2 H Glucose 264 H Calcium 9.1 Total Bilirubin 0.20 AST 32 ALT 27 Alkaline Phosphatase 92 Total Protein 6.0 L Albumin 2.6 L Globulin 3.4 Albumin/Globulin Ratio 0.8 L Lipase 327 Discharge Plan Triage Chief Complaint: Abd Pain ED Provider: Cheko Ortiz Dx/Rx/DC Orders Clinical Impression: Abdominal pain Instructions: ED Abdominal Pain Unkn Cause Fem Prescriptions: No Action dicyclomine 20 mg tablet 20 mg PO BID PRN (Reason: abdominal discomfort) Qty: 180 RF: 2 Myrbetriq 25 mg tablet extended release 24 hr 100 mg PO Q24H RF: 0 cholecalciferol (vitamin D3) 25 mcg (1,000 unit) capsule 50 mcg PO DAILY RF: 0 nitroglycerin 0.4 mg tablet, sublingual 0.4 mg SL ONCE Qty: 25 RF: 3 isosorbide mononitrate 30 mg tablet extended release 24 hr 30 mg PO BID Qty: 60 RF: 11 donepezil [Aricept] 10 mg tablet 20 mg PO DAILY Qty: 180 RF: 1 calcium carbonate 600 mg calcium (1,500 mg) tablet 600 mg PO BID Qty: 180 RF: 1 Prolia 60 mg/mL syringe 60 mg subcut [id number] Qty: 1 RF: 1 ondansetron 8 mg tablet,disintegrating 8 mg PO Q12H PRN (Reason: nausea and vomiting) Qty: 30 RF: 1 tizanidine 2 mg tablet 2 mg PO QHS PRN (Reason: muscle spasticity) Qty: 30 RF: 0 lisinopril 20 mg tablet 20 mg PO DAILY Qty: 90 RF: 3 ropinirole 1 mg tablet 1 mg PO BID Qty: 180 RF: 1 albuterol sulfate 1 INHALER inhaler 2 puff INHALATION Q6H PRN PRN (Reason: Sob &/Or Wheezing) RF: 0 teriflunomide 14 mg tablet 14 mg PO DAILY RF: 0 modafinil 200 MG tablet 200 mg PO DAILY RF: 0 acetaminophen 500 MG tablet 1,000 mg PO TID PRN (Reason: pain -02/03) Qty: 1 RF: 0 ascorbic acid (vitamin C) 500 MG tablet,chewable 500 mg PO DAILY Qty: 30 RF: 0 acidophilus-pectin, citrus 100 million cell-10 mg Capsule 1 cap PO DAILY RF: 0 diclofenac potassium 50 mg tablet 50 mg PO BID Qty: 20 RF: 0 (DME) Accu-Chek Ada Plus test strp Strip See Rx Instructions .ROUTE .MEDSUPPLY Qty: 100 RF: 3 pantoprazole 40 mg tablet,delayed release (DR/EC) 40 mg PO DAILY Qty: 30 RF: 11 atorvastatin 40 mg tablet 40 mg PO DAILY Qty: 30 RF: 11 hydroxyzine HCl 50 mg tablet 50 mg PO TID Qty: 90 RF: 2 sucralfate 1 gram tablet 1 g PO 4X/DAY Qty: 120 RF: 1 conj estrog-medroxyprogest raquel 0.625-2.5 mg tablet 1 tab PO DAILY Qty: 28 RF: 0 pioglitazone 30 mg tablet 30 mg PO DAILY Qty: 90 RF: 0 potassium chloride 20 mEq tablet extended release 20 meq PO DAILY Qty: 90 RF: 0 tramadol 50 mg tablet 50 mg PO Q12H PRN (Reason: pain) Qty: 14 RF: 0 carvedilol 25 mg tablet 25 mg PO BID Qty: 180 RF: 3 glimepiride 4 mg tablet 4 mg PO BID Qty: 60 RF: 1 duloxetine [Cymbalta] 30 mg capsule,delayed release(DR/EC) 30 mg PO BID Qty: 60 RF: 2 Primary Care Provider: Tom Sherman Referrals: Tom Sherman MD [Primary Care Provider] - [facility] appointment Disposition Disposition: Home, Self Care
[2021-02-14] MEDS: Mag Hydrox/Al Hydrox/Simeth 30 ML UDC PO (08:40)
[2021-02-14] MEDS: Ondansetron 4 MG/2 ML Vial IV (08:40)
[2021-02-14 08:45] LABS: Absolute Lymphocyte Count 0.54 X10^3/uL (0.83-4.51); Absolute Neutrophil Count 3.3 X10^3/uL (2.0-7.7); Basophil# 0.04 X10^3/uL; Basophil% 0.9 % (0-1); Eosinophil# 0.08 X10^3/uL; Eosinophils% 1.8 % (0-5); Hematocrit 38.2 % (37-47); Hemoglobin 12.1 g/dL (12.0-15.0); Lymphocyte # 0.54 X10^3/ul (0.83-4.51); Lymphocyte % 12.3 % (19-41); Mean Corp Hgb Conc 31.7 g/dL (32-36); Mean Corpuscular Hgb 27.4 pg (27.0-32.0); Mean Corpuscular Volume 86.6 fL (81-99); Mean Platelet Vol. 10.6 fl (6.2-12.0); Monocyte% 9.1 % (0-10); NRBC Flagged by Analyzer 0 % (0-5); Neutrophil % 75.2 % (47-70); POSITIVE DIFFERENTIAL YES; Platelet Count 123 K/mm3 (150-450); RBC Distribution Width CV 14.5 % (11.6-14.6); RBC Distribution Width SD 46.1 fl (35.1-43.9); Red Blood Count 4.41 M/mm3 (4.2-5.4); White Blood Count 4.4 K/mm3 (4.4-11.0)
[2021-02-14 08:47] LABS: Differential Indicated SCAN CRITERIA MET
[2021-02-14 09:06] LABS: ALB/GLOB Ratio 0.8 RATIO (0.9-2.4); AST(SGOT) 32 U/L (15-37); Alanine Aminotransfer ALT/SGPT 27 U/L (13-56); Albumin, Serum 2.6 g/dL (3.2-5.0); Alkaline Phosphatase 92 U/L (45-117); Anion Gap 8 (5-15); BUN 21 mg/dL (7-18); BUN/Creat Ratio 22.2 RATIO (10-20); Calcium,Total 9.1 mg/dL (8.5-10.1); Chloride 104 mmol/L (98-107); Creatinine, Serum 0.95 mg/dL (0.55-1.02); EST Glomerular Filtration Rate 63 mL/min (>60); Est Glom Filt Rate - Afr Amer 76 mL/min (>60); Estimated Creatinine Clearance 52.42 ml/min; Globulin 3.4 g/dL (2.2-4.2); Glucose 264 mg/dL (74-106); Lipase 327 U/L (73-393); Potassium 3.9 mmol/L (3.5-5.1); Sodium Level 132 mmol/L (136-145)
[2021-02-14 09:10] VITALS: BP 117/63; PULSE 82; RESP 16; O2SAT 97
[2021-02-14] MEDS: Dicyclomine 20 MG/2 ML Vial IM (09:46)
[2021-02-14 10:37] VITALS: PULSE 89; RESP 16; O2SAT 98
== END 2021-02-14 10:38 | disposition home or self-care (01) ==
PROVIDERS: Emergency Provider Emergency Medicine; PCP Internal Medicine
DX: R10.13 Epigastric pain (principal); R10.12 Left upper quadrant pain; I25.10 Atherosclerotic heart disease of native coronary artery without angina pectoris; I11.0 Hypertensive heart disease with heart failure; I50.22 Chronic systolic (congestive) heart failure; I25.5 Ischemic cardiomyopathy; I25.2 Old myocardial infarction; I48.0 Paroxysmal atrial fibrillation; E11.9 Type 2 diabetes mellitus without complications; M81.0 Age-related osteoporosis without current pathological fracture; G25.81 Restless legs syndrome; G35 Multiple sclerosis; F32.9 Major depressive disorder, single episode, unspecified; F41.9 Anxiety disorder, unspecified; J44.9 Chronic obstructive pulmonary disease, unspecified; F17.210 Nicotine dependence, cigarettes, uncomplicated; Z79.84 Long term (current) use of oral hypoglycemic drugs; Z79.899 Other long term (current) drug therapy
CPT/HCPCS: 80053; 83690; 85025; 96372; 96374; 99285; A4216; J2405

== ENCOUNTER 2021-03-05 16:15 | Emergency (ER) | payer MEDICARE, MEDICAID, SELFPAY ==
[2016-07-13 11:45] VITALS: BMI 31.4
[2021-03-05 16:16] VITALS: BP 126/69; PULSE 64; RESP 16; TEMP 36.6; O2SAT 98; BMI 61.9
[2021-03-05 18:00] LABS: Bacteria 0 SEEN /hpf (None Seen); Mucous, Urine 0 SEEN /hpf (<or=2+); Red Blood Cells-Urine 0 SEEN /hpf (0-5); Squamous Epithelial Cells - UA 0 SEEN /hpf (5-10); White Blood Cells 0 SEEN /hpf (0-5)
[2021-03-05 18:04] LABS: Color, Urine Yellow (Yellow); Glucose, Dipstick Normal (Normal); Ketone-Dipstick Negative (Negative); Leukocyte Esterase-Dipstick Negative /ul (Negative); Nitrite-Dipstick Negative (Negative); Occult Blood-Urine Negative /ul (Negative); Protein-Dipstick Negative (Negative); Specific Gravity, Urine 1.015 (1.002-1.030); Urine Bilirubin Dipstick Negative (Negative); Urine Clarity Clear (Clear); Urine Urobilinogen Normal (Normal)
--- NOTE | 2021-03-05 19:45 | CT_ITS ---
STUDY: CT Abdomen And Pelvis W/O Contrast Injection 03/05/2021 8:38 PM REASON FOR EXAM: Female, 65 years old. ABDOMINAL PAIN Flank pain TECHNIQUE: Transaxial images were obtained without oral contrast, and without intravenous contrast. Individualized dose optimization techniques were used for this CT. COMPARISON: 01.28.21. FINDINGS: There are atherosclerotic calcifications of visualized coronary arteries. The visualized portions of the heart are within normal limits. Normal liver. Normal gallbladder and extrahepatic biliary system. Normal spleen. Normal pancreas. Normal bilateral adrenal glands. No acute findings of the right kidney. No acute findings of the left kidney. Normal visualized stomach. Normal small intestine. Stool throughout the colon. There is non-visualization of the appendix. There are calcifications of the abdominal aorta. This is consistent for atherosclerotic disease. There is no abdominal aortic aneurysm. Normal inferior vena cava. Subcentimeter mesenteric lymph nodes. Normal urinary bladder. The uterus is lobulated in contour. There are multiple partially calcified masses in the uterus. This is consistent for a fibroid/ myomatous uterus. Normal abdominal wall. There are diffuse degenerative changes of the visualized lumbar spine. There is bilateral neural foraminal stenosis at L4-5 and L5-S1. IMPRESSION: (NOT LISTED IN ORDER OF SIGNIFICANCE) Constipation There are no renal stones. There is no hydronephrosis. There is bilateral neural foraminal stenosis at L4-5 and L5-S1. Other findings as above. Electronically Signed: Efren Lockhart MD at 20:39 EST , Service support , CT/Abdomen/Pelvis without Cont
--- NOTE | 2021-03-05 19:45 | EDS_ITS ---
HPI HPI - Female History of Present Illness Chief Complaint: Complaint Narrative Narrative: 65-year-old female presents with right flank pain and dysuria. She denies hematuria. She states she has a history of kidney stones. She states easily pass spontaneously. Her symptoms started this morning and she has had episodes of nausea and vomiting as well. She denies fever. She states that her urologist is Dr. Jessica. [facility] Medical History Anxiety Apical mural thrombus with acute [place] Atherosclerotic heart disease of [place] coronary artery without angina pectoris Cervical spinal stenosis Chronic back pain Chronic systolic (congestive) heart failure Closed right tibial fracture COPD (chronic obstructive pulmonary disease) Diabetes mellitus type 2 in nonobese Essential (primary) hypertension Flank pain Fracture of distal end of right tibia Hematemesis Hiatal hernia History of peptic ulcer disease History of ST elevation myocardial infarction (STEMI) HTN (hypertension) Hyperglycemia due to type 2 diabetes mellitus IBS (irritable bowel syndrome) Irritable bowel syndrome with diarrhea Ischemic cardiomyopathy Left ventricular hypertrophy Major depression Multiple sclerosis Nicotine abuse Nondisplaced pilon fracture of right tibia, initial encounter for closed fracture BRYAN (obstructive sleep apnea) Osteoporosis Pain of right lower extremity Paroxysmal atrial fibrillation RLS (restless legs syndrome) Suicidal ideation Tachycardia Takotsubo syndrome Vitamin B12 deficiency Home Medications albuterol sulfate 2 puff INHALATION Q6H PRN PRN 10/23/17 [History Last Taken 06/08/19] teriflunomide 14 mg PO DAILY 09/20/19 [History Last Taken 08/14/20 09:00] modafinil 200 mg PO DAILY 12/12/19 [History Last Taken 08/14/20 09:00] dicyclomine 20 mg tablet 20 mg PO BID PRN #180 tablet 03/15/20 [Rx Last Taken 08/14/20 13:00] acetaminophen 1,000 mg PO TID PRN #1 tablet 07/29/20 [Rx Last Taken Unknown] blood sugar diagnostic #100 each 08/10/20 [Rx Last Taken Unknown] ascorbic acid (vitamin C) 500 mg PO DAILY #30 tab.chew 08/17/20 [Rx Last Taken Unknown] atorvastatin 40 mg tablet 40 mg PO DAILY #30 tab 09/18/20 [Rx Last Taken Unknown] cholecalciferol (vitamin D3) 25 mcg (1,000 unit) capsule 50 mcg PO DAILY cap 09/18/20 [History Last Taken Unknown] nitroglycerin 0.4 mg sublingual tablet 0.4 mg SL ONCE #25 tablet 09/18/20 [Rx Last Taken Unknown] pantoprazole 40 mg tablet,delayed release 40 mg PO DAILY #30 tablet 09/18/20 [Rx Last Taken Unknown] acidophilus-pectin, citrus 1 cap PO DAILY 09/23/20 [History Last Taken Unknown] donepezil 10 mg tablet 20 mg PO DAILY #180 tab 10/02/20 [Rx Last Taken Unknown] isosorbide mononitrate 30 mg tablet,extended release 24 hr 30 mg PO BID #60 tab 10/08/20 [Rx Last Taken Unknown] diclofenac potassium 50 mg PO BID #20 tab 11/12/20 [Rx Last Taken Unknown] hydroxyzine HCl 50 mg tablet 50 mg PO TID #90 tab 12/20/20 [Rx Last Taken Unknown] calcium carbonate 600 mg calcium (1,500 mg) tablet 600 mg PO BID #180 tab 12/25/20 [Rx Last Taken Unknown] denosumab 60 mg/mL subcutaneous syringe 60 mg SUBCUT [id number] #1 ml 12/25/20 [Rx Last Taken Unknown] conj estrogen-medroxyprogesterone 0.625 mg-2.5 mg tablet 1 tab PO DAILY #28 tab 01/11/21 [Rx Last Taken Unknown] pioglitazone 30 mg tablet 30 mg PO DAILY #90 tab 01/15/21 [Rx Last Taken Unknown] potassium chloride 20 mEq tablet,extended release 20 meq PO DAILY #90 tab 01/15/21 [Rx Last Taken Unknown] ropinirole 1 mg tablet 1 mg PO BID #180 tab 01/30/21 [Rx Last Taken Unknown] carvedilol 25 mg tablet 25 mg PO BID #180 tab 02/05/21 [Rx Last Taken Unknown] duloxetine 30 mg capsule,delayed release 30 mg PO BID #60 cap 02/11/21 [Rx Last Taken Unknown] glimepiride 4 mg tablet 4 mg PO BID #60 tab 02/11/21 [Rx Last Taken Unknown] lisinopril 20 mg tablet 20 mg PO BID #180 tab 02/20/21 [Rx Last Taken Unknown] sucralfate 1 gram tablet 1 g PO 4X/DAY #120 tablet 02/20/21 [Rx Last Taken Unknown] tizanidine 2 mg tablet 2 mg PO QHS PRN #30 tab 02/20/21 [Rx Last Taken Unknown] tramadol 50 mg tablet 50 mg PO Q12H PRN #14 tab 02/20/21 [Rx Last Taken Unknown] ondansetron 8 mg disintegrating tablet 8 mg PO Q12H PRN #30 tab 02/28/21 [Rx Last Taken Unknown] ondansetron 8 mg PO Q8H PRN PRN #20 tab 03/05/21 [Rx Last Taken Unknown] Allergy/AdvReac Type Severity Reaction Status Date / Time indomethacin [From Indocin] Allergy Hives Verified 03/05/21 16:18 indomethacin sodium Allergy Hives Verified 03/05/21 16:18 [From Indocin] iodine Allergy Hives Verified 03/05/21 16:18 propoxyphene napsylate Allergy Out of Verified 03/05/21 16:18 [From Darvocet-N] control aripiprazole [From Abilify] AdvReac Other Verified 03/05/21 16:18 aspirin AdvReac Upset Verified 03/05/21 16:18 Stomach clindamycin AdvReac Nausea Verified 03/05/21 16:18 metformin AdvReac Other Verified 03/05/21 16:18 sumatriptan [From Imitrex] AdvReac Vomiting Verified 03/05/21 16:18 Family History Father Cancer Lung cancer Mother Cancer Pancreatic cancer Surgical History History of amputation of left great toe History of back surgery History of cervical discectomy History of coronary artery stent placement (04/08/16) History of endoscopy History of left heart catheterization (09/25/20) History of left knee surgery History of loop recorder (06/2014) History of tonsillectomy and adenoidectomy Social History household members: none Smoking Status: Current every day smoker tobacco type: cigarettes alcohol intake: never substance use type: does not use caffeine: Yes Type: coffee Number of servings: 1 what type of physical activity do you participate in: none and other details: Physical Therapy ROS ROS ED Constitutional Constitutional ED: Denies fever(s) or sweats Eyes Eyes: Denies blurry vision or change in vision ENT ENT ED: Denies rhinorrhea or sore throat Cardiovascular Cardiovascular: Denies chest pain or palpitations Respiratory/Chest Respiratory/Chest: Denies cough or dyspnea Gastrointestinal Gastrointestinal: Reports nausea and vomiting; Denies abdominal pain Genitourinary Genitourinary ED: Reports dysuria and urinary frequency Musculoskeletal Musculoskeletal: Denies arthralgias or myalgias Integumentary Denies rash Neurologic Neurologic: Denies headache(s) EXAM Physical Exam Const Vital Signs: 03/05/21 16:16 Temperature 97.9 F Temperature Source Oral Pulse Rate 64 Respiratory Rate 16 Blood Pressure 126/69 H Blood Pressure Mean 88 Pulse Ox 98 Oxygen Delivery Method Room Air Positive well nourished General Appearance ED: NAD; Negative for pallor HEENT Reports moist mucous membranes Negative for trauma Eyes PERRL and EOMs intact bilaterally Resp normal respiratory effort and clear to auscultation bilaterally Cardio regular rate and regular rhythm Back/Spine General Back: CVA tenderness right Neuro oriented x3 Sensorium / Orientation: alert Psych mental status grossly normal Skin General Skin Exam: Negative for jaundice or pallor MDM MDM MDM Narrative Medical decision making narrative: Patient presented with right flank pain. I did check a urinalysis which has no blood or infection in it. Patient says she has right flank pain and she does have some mild right CVA tenderness on exam. Her CBC and BMP are unremarkable. CT of the abdomen pelvis without contrast does not identify any calculi or other acute intra-abdominal process. Patient was treated morphine and Zofran for improvement of pain. I will discharge home with prescription for Zofran. She is to alternate Tylenol and ibuprofen at home. Patient discharged stable condition. Impression: 1. Right flank pain unknown cause 2. Dysuria unknown cause Lab Data Attestation: I reviewed the patient's lab results. Labs: Laboratory Results - last 24 hr 03/05/21 03/05/21 03/05/21 17:50 20:10 20:10 WBC 6.1 RBC 4.39 Hgb 11.9 L Hct 37.8 MCV 86.1 MCH 27.1 MCHC 31.5 L RDW Std Deviation 47.7 H RDW Coeff of [place] 15.0 H Plt Count 200 MPV 9.4 Immature Gran % (Auto) 0.200 Neut % (Auto) 56.7 Lymph % (Auto) 27.8 [place] % (Auto) 10.3 H Eos % (Auto) 3.9 Baso % (Auto) 1.1 H Absolute Neuts (auto) 3.5 Absolute Lymphs (auto) 1.70 Nucleated RBC % 0 Sodium 133 L Potassium 4.4 Chloride 107 Carbon Dioxide 23.0 Anion Gap 3 L BUN 23 H Creatinine 0.87 Estim Creat Clear Calc 57.24 Est GFR (MDRD) Af Amer 83 Est GFR (MDRD) Non-Af 69 BUN/Creatinine Ratio 26.3 H Glucose 132 H Calcium 9.9 Urine Color Yellow Urine Clarity Clear Urine pH 6.0 Ur Specific [place] 1.015 Urine Protein Negative Urine Glucose (UA) Normal Urine Ketones Negative Urine Occult Blood Negative Urine Nitrite Negative Urine Bilirubin Negative Urine Urobilinogen Normal Ur Leukocyte Esterase Negative Urine RBC 0 SEEN Urine WBC 0 SEEN Ur Squamous Epith Cells 0 SEEN Urine Bacteria 0 SEEN Urine Mucus 0 SEEN Radiography Diagnostic Testing: Clinical Impression(s) from Imaging Studies Abdomen/Pelvis CT 03/05/21 19:45 Discharge Plan Triage Chief Complaint: Complaint ED Provider: Yosef Lugo Dx/Rx/DC Orders Instructions: ED Flank Pain, Uncertain Cause Prescriptions: New ondansetron 4 mg tablet,disintegrating 8 mg PO Q8H PRN PRN (Reason: Nausea) Qty: 20 RF: 0 No Action dicyclomine 20 mg tablet 20 mg PO BID PRN (Reason: abdominal discomfort) Qty: 180 RF: 2 cholecalciferol (vitamin D3) 25 mcg (1,000 unit) capsule 50 mcg PO DAILY RF: 0 nitroglycerin 0.4 mg tablet, sublingual 0.4 mg SL ONCE Qty: 25 RF: 3 isosorbide mononitrate 30 mg tablet extended release 24 hr 30 mg PO BID Qty: 60 RF: 11 donepezil [Aricept] 10 mg tablet 20 mg PO DAILY Qty: 180 RF: 1 calcium carbonate 600 mg calcium (1,500 mg) tablet 600 mg PO BID Qty: 180 RF: 1 Prolia 60 mg/mL syringe 60 mg subcut [id number] Qty: 1 RF: 1 ropinirole 1 mg tablet 1 mg PO BID Qty: 180 RF: 1 lisinopril 20 mg tablet 20 mg PO BID Qty: 180 RF: 3 sucralfate 1 gram tablet 1 g PO 4X/DAY Qty: 120 RF: 1 tizanidine 2 mg tablet 2 mg PO QHS PRN (Reason: muscle spasticity) Qty: 30 RF: 0 tramadol 50 mg tablet 50 mg PO Q12H PRN (Reason: pain) Qty: 14 RF: 0 albuterol sulfate 1 INHALER inhaler 2 puff INHALATION Q6H PRN PRN (Reason: Sob &/Or Wheezing) RF: 0 teriflunomide 14 mg tablet 14 mg PO DAILY RF: 0 modafinil 200 MG tablet 200 mg PO DAILY RF: 0 acetaminophen 500 MG tablet 1,000 mg PO TID PRN (Reason: pain -02/03) Qty: 1 RF: 0 ascorbic acid (vitamin C) 500 MG tablet,chewable 500 mg PO DAILY Qty: 30 RF: 0 acidophilus-pectin, citrus 100 million cell-10 mg Capsule 1 cap PO DAILY RF: 0 diclofenac potassium 50 mg tablet 50 mg PO BID Qty: 20 RF: 0 (DME) Accu-Chek Ada Plus test strp Strip See Rx Instructions .ROUTE .MEDSUPPLY Qty: 100 RF: 3 pantoprazole 40 mg tablet,delayed release (DR/EC) 40 mg PO DAILY Qty: 30 RF: 11 atorvastatin 40 mg tablet 40 mg PO DAILY Qty: 30 RF: 11 hydroxyzine HCl 50 mg tablet 50 mg PO TID Qty: 90 RF: 2 conj estrog-medroxyprogest raquel 0.625-2.5 mg tablet 1 tab PO DAILY Qty: 28 RF: 0 pioglitazone 30 mg tablet 30 mg PO DAILY Qty: 90 RF: 0 potassium chloride 20 mEq tablet extended release 20 meq PO DAILY Qty: 90 RF: 0 carvedilol 25 mg tablet 25 mg PO BID Qty: 180 RF: 3 glimepiride 4 mg tablet 4 mg PO BID Qty: 60 RF: 1 duloxetine [Cymbalta] 30 mg capsule,delayed release(DR/EC) 30 mg PO BID Qty: 60 RF: 2 ondansetron 8 mg tablet,disintegrating 8 mg PO Q12H PRN (Reason: nausea and vomiting) Qty: 30 RF: 1 Primary Care Provider: Tom Sherman Referrals: Tom Sherman MD [Primary Care Provider] - Disposition Disposition: Home, Self Care
[2021-03-05 20:15] LABS: Absolute Neutrophil Count 3.5 X10^3/uL (2.0-7.7); Basophil# 0.07 X10^3/uL; Basophil% 1.1 % (0-1); Eosinophil# 0.24 X10^3/uL; Eosinophils% 3.9 % (0-5); Hematocrit 37.8 % (37-47); Hemoglobin 11.9 g/dL (12.0-15.0); Lymphocyte % 27.8 % (19-41); Mean Corp Hgb Conc 31.5 g/dL (32-36); Mean Corpuscular Hgb 27.1 pg (27.0-32.0); Mean Corpuscular Volume 86.1 fL (81-99); Mean Platelet Vol. 9.4 fl (6.2-12.0); Monocyte# 0.63 X10^3/uL; Monocyte% 10.3 % (0-10); NRBC Flagged by Analyzer 0 % (0-5); Neutrophil # 3.47 X10^3/uL (2.7-7.7); Neutrophil % 56.7 % (47-70); Platelet Count 200 K/mm3 (150-450); RBC Distribution Width SD 47.7 fl (35.1-43.9); Red Blood Count 4.39 M/mm3 (4.2-5.4); White Blood Count 6.1 K/mm3 (4.4-11.0)
[2021-03-05] MEDS: Morphine 4 MG/ML Syringe IV (20:15)
[2021-03-05] MEDS: Ondansetron 4 MG/2 ML Vial IV (20:15)
[2021-03-05 20:29] LABS: Anion Gap 3 (5-15); BUN 23 mg/dL (7-18); BUN/Creat Ratio 26.3 RATIO (10-20); Calcium,Total 9.9 mg/dL (8.5-10.1); Chloride 107 mmol/L (98-107); Creatinine, Serum 0.87 mg/dL (0.55-1.02); EST Glomerular Filtration Rate 69 mL/min (>60); Est Glom Filt Rate - Afr Amer 83 mL/min (>60); Estimated Creatinine Clearance 57.24 ml/min; Glucose 132 mg/dL (74-106); Potassium 4.4 mmol/L (3.5-5.1); Sodium Level 133 mmol/L (136-145)
[2021-03-05 21:19] VITALS: BP 129/59; PULSE 64; RESP 16; O2SAT 94
--- NOTE | 2021-03-05 21:24 | CM.ED ---
PRAVIN Note SW noted patient was in the ED with multiple ED visits. Patient said that she has a PCP. SW discussed patient's presentation to the ED and she said that she thought she had an UTI. PRAVIN provided her with handout When to GO and Where. Mary REYES
--- NOTE | 2021-03-05 21:25 | ED.RN ---
social work talked with pt prior to dc
== END 2021-03-05 21:26 | disposition home or self-care (01) ==
PROVIDERS: Emergency Provider Student in an Organized Health Care Education/Training Program; PCP Internal Medicine
DX: R30.0 Dysuria (principal); R10.9 Unspecified abdominal pain; I25.10 Atherosclerotic heart disease of native coronary artery without angina pectoris; I11.0 Hypertensive heart disease with heart failure; I50.22 Chronic systolic (congestive) heart failure; I25.5 Ischemic cardiomyopathy; I48.0 Paroxysmal atrial fibrillation; I25.2 Old myocardial infarction; J44.9 Chronic obstructive pulmonary disease, unspecified; M81.0 Age-related osteoporosis without current pathological fracture; G35 Multiple sclerosis; G25.81 Restless legs syndrome; F32.9 Major depressive disorder, single episode, unspecified; F41.9 Anxiety disorder, unspecified; F17.210 Nicotine dependence, cigarettes, uncomplicated; Z79.84 Long term (current) use of oral hypoglycemic drugs; Z79.899 Other long term (current) drug therapy; Z87.442 Personal history of urinary calculi
CPT/HCPCS: 74176; 80048; 81001; 85025; 96374; 96375; 99285; A4216; J2405

== ENCOUNTER → 2021-03-12 14:29 | Outpatient (CLI) | payer MEDICARE, MEDICAID, SELFPAY ==
[2016-07-13 11:45] VITALS: BMI 31.4
--- NOTE | 2021-03-12 14:35 | RAD_ITS ---
STUDY: X-RAY - CERVICAL SPINE REASON FOR EXAM: Female, 65 years old. CERVICAL POST LAMINECTOMY SYNDROME/NECK PAIN TECHNIQUE: 3 view(s) of the cervical spine were obtained. COMPARISON: Comparison is made with prior examination dated 02/23/2018. FINDINGS: There are degenerative changes of the anterior atlantoaxial articulation. Normal odontoid process. There is straightening of the normal cervical lordosis. The patient is status post laminectomy with interpedicular screw and mahendra fixation at the C4-C5, C5-C6 levels. There is multi-level degenerative disc disease with multilevel disc space narrowing. Normal visualized intervertebral neuroforamina. The soft tissue structures are unremarkable. RAD/Cerv Spine 2 or 3 Views IMPRESSION: Status post posterior fusion at the C4-C5 and C5-C6 levels. Disc space narrowing. Stable examination. Electronically Signed: Daljit Jordan MD at 15:28 EST , Service support ,
== END ==
PROVIDERS: PCP Internal Medicine; Referring Provider Nurse Practitioner Family; Visit Provider Nurse Practitioner Family
DX: M96.1 Postlaminectomy syndrome, not elsewhere classified (principal); M54.2 Cervicalgia
CPT/HCPCS: 72040

== ENCOUNTER 2021-04-07 05:15 | Emergency (ER) | payer MEDICARE, MEDICAID, SELFPAY ==
[2016-07-13 11:45] VITALS: BMI 31.4
[2021-04-07 05:16] VITALS: BP 157/68; PULSE 64; RESP 16; TEMP 36.4; O2SAT 98
[2021-04-07 05:19] VITALS: BP 157/68; PULSE 68; RESP 16; TEMP 36.4; O2SAT 97
--- NOTE | 2021-04-07 05:31 | ED.VIS.GI ---
HPI HPI - GI History of Present Illness Chief Complaint: Abd Pain Informant: patient Narrative Narrative: Awaken midnight epigastric pain nausea vomiting diarrhea. 3 episodes of each. No hematemesis or bloody stools. No fevers. No recent antibiotics. She reports similar symptoms back in July when she diagnosed pancreatitis. Denies alcohol history. Dysuria since noon also. With frequency. No fevers. No chills. History of AK in the past had paroxysmal atrial fibrillation. She reports over Thanksgiving was in [place], found to have a left ventricular thrombus currently on Eliquis twice a day with no missed doses. She is followed by Dr. Butler. 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 Cervical spinal stenosis Chronic anticoagulation Chronic back pain Chronic systolic (congestive) heart failure Closed right tibial fracture COPD (chronic obstructive pulmonary disease) Diabetes mellitus type 2 in nonobese Essential (primary) hypertension Flank pain Fracture of distal end of right tibia Hematemesis Hiatal hernia History of peptic ulcer disease History of ST elevation myocardial infarction (STEMI) HTN (hypertension) Hyperglycemia due to type 2 diabetes mellitus IBS (irritable bowel syndrome) Irritable bowel syndrome with diarrhea Ischemic cardiomyopathy Left ventricular hypertrophy Major depression Multiple sclerosis Nicotine abuse Nondisplaced pilon fracture of right tibia, initial encounter for closed fracture BRYAN (obstructive sleep apnea) Osteoporosis Pain of right lower extremity Paroxysmal atrial fibrillation RLS (restless legs syndrome) Suicidal ideation Tachycardia Takotsubo syndrome Vitamin B12 deficiency Home Medications albuterol sulfate 2 puff INHALATION Q6H PRN PRN 10/23/17 [History Last Taken 06/08/19] teriflunomide 14 mg PO DAILY 09/20/19 [History Last Taken 08/14/20 09:00] modafinil 200 mg PO DAILY 12/12/19 [History Last Taken 08/14/20 09:00] dicyclomine 20 mg tablet 20 mg PO BID PRN #180 tablet 03/15/20 [Rx Last Taken 08/14/20 13:00] acetaminophen 1,000 mg PO TID PRN #1 tablet 07/29/20 [Rx Last Taken Unknown] blood sugar diagnostic #100 each 08/10/20 [Rx Last Taken Unknown] ascorbic acid (vitamin C) 500 mg PO DAILY #30 tab.chew 08/17/20 [Rx Last Taken Unknown] atorvastatin 40 mg tablet 40 mg PO DAILY #30 tab 09/18/20 [Rx Last Taken Unknown] cholecalciferol (vitamin D3) 25 mcg (1,000 unit) capsule 50 mcg PO DAILY cap 09/18/20 [History Last Taken Unknown] nitroglycerin 0.4 mg sublingual tablet 0.4 mg SL ONCE #25 tablet 09/18/20 [Rx Last Taken Unknown] pantoprazole 40 mg tablet,delayed release 40 mg PO DAILY #30 tablet 09/18/20 [Rx Last Taken Unknown] acidophilus-pectin, citrus 1 cap PO DAILY 09/23/20 [History Last Taken Unknown] donepezil 10 mg tablet 20 mg PO DAILY #180 tab 10/02/20 [Rx Last Taken Unknown] isosorbide mononitrate 30 mg tablet,extended release 24 hr 30 mg PO BID #60 tab 10/08/20 [Rx Last Taken Unknown] diclofenac potassium 50 mg PO BID #20 tab 11/12/20 [Rx Last Taken Unknown] calcium carbonate 600 mg calcium (1,500 mg) tablet 600 mg PO BID #180 tab 12/25/20 [Rx Last Taken Unknown] denosumab 60 mg/mL subcutaneous syringe 60 mg SUBCUT [id number] #1 ml 12/25/20 [Rx Last Taken Unknown] conj estrogen-medroxyprogesterone 0.625 mg-2.5 mg tablet 1 tab PO DAILY #28 tab 01/11/21 [Rx Last Taken Unknown] pioglitazone 30 mg tablet 30 mg PO DAILY #90 tab 01/15/21 [Rx Last Taken Unknown] potassium chloride 20 mEq tablet,extended release 20 meq PO DAILY #90 tab 01/15/21 [Rx Last Taken Unknown] ropinirole 1 mg tablet 1 mg PO BID #180 tab 01/30/21 [Rx Last Taken Unknown] carvedilol 25 mg tablet 25 mg PO BID #180 tab 02/05/21 [Rx Last Taken Unknown] duloxetine 30 mg capsule,delayed release 30 mg PO BID #60 cap 02/11/21 [Rx Last Taken Unknown] glimepiride 4 mg tablet 4 mg PO BID #60 tab 02/11/21 [Rx Last Taken Unknown] sucralfate 1 gram tablet 1 g PO 4X/DAY #120 tablet 02/20/21 [Rx Last Taken Unknown] ondansetron 8 mg disintegrating tablet 8 mg PO Q12H PRN #30 tab 02/28/21 [Rx Last Taken Unknown] hydroxyzine HCl 50 mg tablet 50 mg PO TID #90 tab 03/12/21 [Rx Last Taken Unknown] lisinopril 20 mg tablet 20 mg PO BID #180 tab 04/02/21 [Rx Last Taken Unknown] apixaban 5 mg tablet 5 mg PO BID 04/04/21 [History Last Taken Unknown] tizanidine 2 mg tablet 2 mg PO QHS PRN #30 tab 04/04/21 [Rx Last Taken Unknown] tramadol 50 mg tablet 50 mg PO Q12H PRN #14 tab 04/04/21 [Rx Last Taken Unknown] nitrofurantoin monohyd/m-cryst [Macrobid] 100 mg PO Q12H 5 Days #10 cap 04/07/21 [Rx Last Taken Unknown] ondansetron 4 mg PO Q6H PRN #10 tab 04/07/21 [Rx Last Taken Unknown] phenazopyridine [Pyridium] 200 mg PO TID #6 tab 04/07/21 [Rx Last Taken Unknown] Allergy/AdvReac Type Severity Reaction Status Date / Time indomethacin [From Indocin] Allergy Hives Verified 04/07/21 05:17 indomethacin sodium Allergy Hives Verified 04/07/21 05:17 [From Indocin] iodine Allergy Hives Verified 04/07/21 05:17 propoxyphene napsylate Allergy Out of Verified 04/07/21 05:17 [From Darvocet-N] control aripiprazole [From Abilify] AdvReac Other Verified 04/07/21 05:17 aspirin AdvReac Upset Verified 04/07/21 05:17 Stomach clindamycin AdvReac Nausea Verified 04/07/21 05:17 metformin AdvReac Other Verified 04/07/21 05:17 sumatriptan [From Imitrex] AdvReac Vomiting Verified 04/07/21 05:17 Family History Father Cancer Lung cancer Mother Cancer Pancreatic cancer Surgical History History of amputation of left great toe History of back surgery History of cervical discectomy History of coronary artery stent placement (04/08/16) History of endoscopy History of left heart catheterization (09/25/20) History of left knee surgery History of loop recorder (06/2014) History of tonsillectomy and adenoidectomy Social History household members: none Smoking Status: Current every day smoker tobacco type: cigarettes alcohol intake: never substance use type: does not use caffeine: Yes Type: coffee Number of servings: 1 what type of physical activity do you participate in: none and other details: Physical Therapy ROS ROS ED Constitutional Constitutional ED: Denies chills, fever(s) or sweats Eyes Eyes: Denies change in vision ENT ENT ED: Denies dysphagia or sore throat Cardiovascular Cardiovascular: Denies chest pain, leg edema, palpitations or racing heartbeat Respiratory/Chest Respiratory/Chest: Denies cough, dyspnea or dyspnea on exertion Gastrointestinal Gastrointestinal: Reports abdominal pain, diarrhea, nausea and vomiting Genitourinary Genitourinary ED: Reports dysuria and urinary frequency; Denies hematuria Musculoskeletal Musculoskeletal: Denies back pain, extremity pain or neck pain Integumentary Denies rash or wounds Neurologic Neurologic: Denies headache(s), paresthesias or weakness EXAM Physical Exam Const Vital Signs: 04/07/21 05:16 04/07/21 05:19 Temperature 97.6 F L 97.6 F L Temperature Source Temporal Temporal Pulse Rate 64 68 Respiratory Rate 16 16 Blood Pressure 157/68 H 157/68 H Blood Pressure Mean 97 97 Pulse Ox 98 97 Oxygen Delivery Method Room Air Room Air Positive well nourished and well developed General Appearance ED: well developed and NAD HEENT Reports moist mucous membranes normocephalic and atraumatic Eyes PERRL, EOMs intact bilaterally and conjunctivae normal General Eye ED: Yes normal appearance of both eyes Neck no lymphadenopathy and supple General: Negative for tenderness Chest Wall Chest: Negative for tenderness Resp normal respiratory effort and normal air movement Effort and Inspection: symmetric chest movement; Negative for respiratory distress Cardio regular rate, regular rhythm and no murmurs Peripheral Pulses: pulses 2+ throughout GI normal to inspection, nondistended, normoactive bowel sounds GI Narrative: Mild epigastric tenderness. Negative Pool's or McBurney's tenderness. Palpation: Negative for guarding or rebound tenderness present Back/Spine no CVA tenderness and no thoracic nor lumbar tenderness Extremity normal to inspection General Extremety ED: Negative for edema or tenderness General Extremity: Negative for edema Neuro oriented x3 and no sensory deficits noted Sensorium / Orientation: awake and alert Skin no rashes or lesions noted and no wounds MDM MDM MDM Narrative Medical decision making narrative: Patient with a nonsurgical abdomen on exam. Reports similar presentation with pancreatitis in the past. Denies alcohol history. Abdominal labs were all normal glucose 198. Lipase 260. She was given fluids Zofran Pepcid along 1 dose of morphine. Clinically improved symptoms. Urine noted leukocytes WBCs also noted slight epithelials. Culture sent. She is clinically symptomatic with dysuria. She is tolerating p.o. intake. She started on Macrobid and Pyridium. Prescription also Zofran use for nausea control. Abdomen benign on reevaluation. She will follow-up with her PCP. All questions were answered. Patient is being discharged under pandemic conditions under declared global, national and state disaster activation, with limited medical resources. Patient and community understands this. Results discussed in layman's terms to the patient satisfaction. All questions answered in layman's terms. Patient understands importance of follow-up care as directed. Patient has been instructed to return to the ED immediately if new symptoms, problems, or questions occur. We mutually agree with the plan of disposition. The patient understand that they may call or return with any questions or concerns at any time. Lab Data Attestation: I reviewed the patient's lab results. Labs: Laboratory Results - last 24 hr 04/07/21 04/07/21 04/07/21 05:28 05:28 06:35 WBC 6.0 RBC 4.03 L Hgb 11.1 L Hct 36.0 L MCV 89.3 MCH 27.5 MCHC 30.8 L RDW Std Deviation 57.9 H RDW Coeff of Ye[place] 17.6 H Plt Count 220 MPV 9.8 Immature Gran % (Auto) 0.200 Neut % (Auto) 56.0 Lymph % (Auto) 25.7 [place] % (Auto) 11.4 H Eos % (Auto) 5.5 H Baso % (Auto) 1.2 H Absolute Neuts (auto) 3.4 Absolute Lymphs (auto) 1.55 Nucleated RBC % 0 Sodium 135 L Potassium 4.4 Chloride 100 Carbon Dioxide 27.0 Anion Gap 8 BUN 18 Creatinine 0.91 Estim Creat Clear Calc 54.72 Est GFR (MDRD) Af Amer 80 Est GFR (MDRD) Non-Af 66 BUN/Creatinine Ratio 19.9 Glucose 198 H Calcium 9.7 Total Bilirubin 0.30 Direct Bilirubin 0.09 AST 16 ALT 24 Alkaline Phosphatase 75 Total Protein 6.1 L Albumin 2.9 L Globulin 3.2 Lipase 260 Urine Color Yellow Urine Clarity Clear Urine pH 5.0 Ur Specific [place] 1.015 Urine Protein 15 H Urine Glucose (UA) Normal Urine Ketones Negative Urine Occult Blood Negative Urine Nitrite Negative Urine Bilirubin Negative Urine Urobilinogen Normal Ur Leukocyte Esterase 100 H Urine RBC 0 SEEN Urine WBC 5-10 SEEN Ur Squamous Epith Cells 5-10 SEEN Urine Bacteria 2+ Hyaline Casts 0-5 SEEN Urine Mucus 0 SEEN Discharge Plan Triage Chief Complaint: Abd Pain ED Provider: Darron Carmona Dx/Rx/DC Orders Clinical Impression: Nausea vomiting and diarrhea, Acute UTI Instructions: Urinary Tract Infections in Women, ED Diet for Vomiting or ... Prescriptions: New phenazopyridine [Pyridium] 200 MG tablet 200 mg PO TID Qty: 6 RF: 0 ondansetron 4 mg tablet,disintegrating 4 mg PO Q6H PRN (Reason: nausea and vomiting) Qty: 10 RF: 0 nitrofurantoin monohyd/m-cryst [Macrobid] 100 mg capsule 100 mg PO Q12H 5 Days Qty: 10 RF: 0 No Action dicyclomine 20 mg tablet 20 mg PO BID PRN (Reason: abdominal discomfort) Qty: 180 RF: 2 cholecalciferol (vitamin D3) 25 mcg (1,000 unit) capsule 50 mcg PO DAILY RF: 0 nitroglycerin 0.4 mg tablet, sublingual 0.4 mg SL ONCE Qty: 25 RF: 3 isosorbide mononitrate 30 mg tablet extended release 24 hr 30 mg PO BID Qty: 60 RF: 11 donepezil [Aricept] 10 mg tablet 20 mg PO DAILY Qty: 180 RF: 1 calcium carbonate 600 mg calcium (1,500 mg) tablet 600 mg PO BID Qty: 180 RF: 1 Prolia 60 mg/mL syringe 60 mg subcut [id number] Qty: 1 RF: 1 ropinirole 1 mg tablet 1 mg PO BID Qty: 180 RF: 1 sucralfate 1 gram tablet 1 g PO 4X/DAY Qty: 120 RF: 1 Eliquis 5 mg tablet 5 mg PO BID RF: 0 tramadol 50 mg tablet 50 mg PO Q12H PRN (Reason: pain) Qty: 14 RF: 0 tizanidine 2 mg tablet 2 mg PO QHS PRN (Reason: muscle spasticity) Qty: 30 RF: 0 albuterol sulfate 1 INHALER inhaler 2 puff INHALATION Q6H PRN PRN (Reason: Sob &/Or Wheezing) RF: 0 teriflunomide 14 mg tablet 14 mg PO DAILY RF: 0 modafinil 200 MG tablet 200 mg PO DAILY RF: 0 acetaminophen 500 MG tablet 1,000 mg PO TID PRN (Reason: pain -02/03) Qty: 1 RF: 0 ascorbic acid (vitamin C) 500 MG tablet,chewable 500 mg PO DAILY Qty: 30 RF: 0 acidophilus-pectin, citrus 100 million cell-10 mg Capsule 1 cap PO DAILY RF: 0 diclofenac potassium 50 mg tablet 50 mg PO BID Qty: 20 RF: 0 (DME) Accu-Chek Ada Plus test strp Strip See Rx Instructions .ROUTE .MEDSUPPLY Qty: 100 RF: 3 pantoprazole 40 mg tablet,delayed release (DR/EC) 40 mg PO DAILY Qty: 30 RF: 11 atorvastatin 40 mg tablet 40 mg PO DAILY Qty: 30 RF: 11 conj estrog-medroxyprogest raquel 0.625-2.5 mg tablet 1 tab PO DAILY Qty: 28 RF: 0 pioglitazone 30 mg tablet 30 mg PO DAILY Qty: 90 RF: 0 potassium chloride 20 mEq tablet extended release 20 meq PO DAILY Qty: 90 RF: 0 carvedilol 25 mg tablet 25 mg PO BID Qty: 180 RF: 3 glimepiride 4 mg tablet 4 mg PO BID Qty: 60 RF: 1 duloxetine [Cymbalta] 30 mg capsule,delayed release(DR/EC) 30 mg PO BID Qty: 60 RF: 2 ondansetron 8 mg tablet,disintegrating 8 mg PO Q12H PRN (Reason: nausea and vomiting) Qty: 30 RF: 1 hydroxyzine HCl 50 mg tablet 50 mg PO TID Qty: 90 RF: 0 lisinopril 20 mg tablet 20 mg PO BID Qty: 180 RF: 3 Primary Care Provider: Tom Sherman Referrals: Tom Sherman MD [Primary Care Provider] - 3-5 Days Disposition Disposition: Home, Self Care
[2021-04-07 05:37] LABS: Absolute Lymphocyte Count 1.55 X10^3/uL (0.83-4.51); Absolute Neutrophil Count 3.4 X10^3/uL (2.0-7.7); Basophil# 0.07 X10^3/uL; Basophil% 1.2 % (0-1); Eosinophil# 0.33 X10^3/uL; Eosinophils% 5.5 % (0-5); Hemoglobin 11.1 g/dL (12.0-15.0); Lymphocyte # 1.55 X10^3/ul (0.83-4.51); Lymphocyte % 25.7 % (19-41); Mean Corp Hgb Conc 30.8 g/dL (32-36); Mean Corpuscular Hgb 27.5 pg (27.0-32.0); Mean Corpuscular Volume 89.3 fL (81-99); Mean Platelet Vol. 9.8 fl (6.2-12.0); Monocyte# 0.69 X10^3/uL; Monocyte% 11.4 % (0-10); NRBC Flagged by Analyzer 0 % (0-5); Neutrophil # 3.39 X10^3/uL (2.7-7.7); Platelet Count 220 K/mm3 (150-450); RBC Distribution Width CV 17.6 % (11.6-14.6); RBC Distribution Width SD 57.9 fl (35.1-43.9); Red Blood Count 4.03 M/mm3 (4.2-5.4)
[2021-04-07] MEDS: Ondansetron 4 MG/2 ML Vial IV (05:47)
[2021-04-07] MEDS: Famotidine 200 MG/20 ML MDV 20 MG in 0.9% Normal Saline (Pres. free 8 ML 300 MG IV (05:48)
[2021-04-07] MEDS: Morphine 4 MG/ML Syringe IV (05:48)
[2021-04-07 05:53] LABS: AST(SGOT) 16 U/L (15-37); Alanine Aminotransfer ALT/SGPT 24 U/L (13-56); Albumin, Serum 2.9 g/dL (3.2-5.0); Alkaline Phosphatase 75 U/L (45-117); Anion Gap 8 (5-15); BUN 18 mg/dL (7-18); BUN/Creat Ratio 19.9 RATIO (10-20); Bilirubin, Direct 0.09 mg/dL (0.00-0.30); Calcium,Total 9.7 mg/dL (8.5-10.1); Chloride 100 mmol/L (98-107); Creatinine, Serum 0.91 mg/dL (0.55-1.02); EST Glomerular Filtration Rate 66 mL/min (>60); Est Glom Filt Rate - Afr Amer 80 mL/min (>60); Estimated Creatinine Clearance 54.72 ml/min; Globulin 3.2 g/dL (2.2-4.2); Glucose 198 mg/dL (74-106); Lipase 260 U/L (73-393); Potassium 4.4 mmol/L (3.5-5.1); Protein, Total 6.1 g/dL (6.4-8.2); Sodium Level 135 mmol/L (136-145)
[2021-04-07 06:42] LABS: Mucous, Urine 0 SEEN /hpf (<or=2+); Red Blood Cells-Urine 0 SEEN /hpf (0-5)
[2021-04-07 06:43] LABS: Color, Urine Yellow (Yellow); Glucose, Dipstick Normal (Normal); Ketone-Dipstick Negative (Negative); Leukocyte Esterase-Dipstick 100 /ul (Negative); Nitrite-Dipstick Negative (Negative); Occult Blood-Urine Negative /ul (Negative); Protein-Dipstick 15 mg/dl (Negative); Specific Gravity, Urine 1.015 (1.002-1.030); Urine Bilirubin Dipstick Negative (Negative); Urine Clarity Clear (Clear); Urine Urobilinogen Normal (Normal)
[2021-04-07 06:57] LABS: Bacteria 2+ /hpf (None Seen); Hyaline Cast 0-5 SEEN /lpf (0-5); Squamous Epithelial Cells - UA 5-10 SEEN /hpf (5-10); White Blood Cells 5-10 SEEN /hpf (0-5)
[2021-04-07] MEDS: Nitrofurantoin Macrocrystals 100 MG Capsule PO (07:27)
[2021-04-07] MEDS: Phenazopyridine 95 MG Tablet 190 MG PO (07:27)
[2021-04-07 07:28] VITALS: BP 117/60; PULSE 78; RESP 16; O2SAT 96
--- NOTE | 2021-04-17 21:22 | CM.ED ---
SOCIAL WORK ED Care Plan reviewed and approved. Copy of ED Care Plan along with resources mailed to patient via certified mail. Tracking number [id number]. Copy of ED Care Plan faxed to Dr. Sherman's office. Aime Garvey, FIELD MARKETING ASSOCIATE, FLUX CORE WELDER
--- NOTE | 2021-04-18 15:43 | CASEMGMT ---
PRAVIN Note SW called patient's MD office, [facility], and advised staff member, Cele, that patient has a care plan. SW called patient and left voice mail. SW received voice mail from patient. SW called patient back and spoke to patient. Advised patient that care plan has been developed for patient due to high number of ED visits. SW also advised that pain meds would only be given for acute and verifiable pain per MD discretion. Patient said but you don't give me meds when I leave the hospital. SW reviewed chart and noted that patient has received morphine numerous times while in the ED and reported that to patient. Patient voiced no more issues or concerns. Plan: KAVON REYES
== END 2021-04-07 07:31 | disposition home or self-care (01) ==
PROVIDERS: Emergency Provider Emergency Medicine; PCP Internal Medicine
DX: N39.0 Urinary tract infection, site not specified (principal); R11.2 Nausea with vomiting, unspecified; R19.7 Diarrhea, unspecified; I25.5 Ischemic cardiomyopathy; I11.0 Hypertensive heart disease with heart failure; I50.22 Chronic systolic (congestive) heart failure; I25.10 Atherosclerotic heart disease of native coronary artery without angina pectoris; I48.0 Paroxysmal atrial fibrillation; I25.2 Old myocardial infarction; J44.9 Chronic obstructive pulmonary disease, unspecified; M81.0 Age-related osteoporosis without current pathological fracture; G35 Multiple sclerosis; F32.9 Major depressive disorder, single episode, unspecified; F41.9 Anxiety disorder, unspecified; F17.210 Nicotine dependence, cigarettes, uncomplicated; Z95.5 Presence of coronary angioplasty implant and graft; Z79.01 Long term (current) use of anticoagulants; Z79.84 Long term (current) use of oral hypoglycemic drugs; Z79.899 Other long term (current) drug therapy; Z87.19 Personal history of other diseases of the digestive system
CPT/HCPCS: 80048; 80076; 81001; 83690; 85025; 87086; 87088; 96361; 96374; 96375; 99285; J7040; A4216; J2405; J3490

== ENCOUNTER 2021-04-19 07:53 | Emergency (ER) | payer MEDICARE, MEDICAID, SELFPAY ==
[2016-07-13 11:45] VITALS: BMI 31.4
[2021-04-19 07:54] VITALS: BP 168/91; PULSE 68; RESP 18; TEMP 36.6; O2SAT 99
--- NOTE | 2021-04-19 08:09 | EKG12_ITS ---
Test Reason : Blood Pressure : / mmHG Vent. Rate : 062 BPM Atrial Rate : 062 BPM P-R Int : 162 ms QRS Dur : 088 ms QT Int : 390 ms P-R-T Axes : 026 -54 116 degrees QTc Int : 395 ms Normal sinus rhythm Left axis deviation Septal infarct , age undetermined Inferior infarct , age undetermined T wave abnormality, consider lateral ischemia Abnormal ECG Confirmed by ALLAN WITT, DORYS ([id number]), medical editor YUNG MUNGUIA ([id number]) on 04/23/2021 9:36:05 AM Referred By: PRAVIN Confirmed By:DORYS LEMUS MD
--- NOTE | 2021-04-19 08:21 | EDS_ITS ---
HPI History of Present Illness Chief Complaint: Chest Pain Informant: patient Narrative Narrative: Patient has 2 complaints today. She was planning to see her doctor about some dysuria. This has been going on for about 2 or 3 days. She did not think she could get in today as it is [place]. She is urinating a little more frequently than normal with some dysuria. No odor. No fevers or chills. She did deny any nausea vomiting or difficulty eating to me. She has had UTIs before and this seems like the start of 1. She has no anterior abdominal pain. She has no flank pain. Nothing specifically makes this better or worse other than urinating causes dysuria. Patient also has had some chest pain this morning. It started about midnight. Her blood pressure has been up in the 170-210 range. She states normally when her blood pressure goes up she gets chest pain. She has not yet had her meds for high blood pressure. She has had prior NH. However, she also had a heart catheterization in September that showed no acute disease. She gets chest pain like this very typically when her blood pressure is up. She is also on Eliquis now. She has a history of intermittent atrial fibrillation and atrial flutter. She was out in the [facility] area and found to have what sounds like a intra-atrial clot on the left. She is taking her Eliquis. Her chest pain is worse with her blood pressure up. When her blood pressure is down it is better. It is not exertional. She denied dyspnea nausea vomiting or diaphoresis. [facility] Medical History Anxiety Apical mural thrombus with acute NH Atherosclerotic heart disease of [place] coronary artery without angina pectoris Cervical spinal stenosis Chronic anticoagulation Chronic back pain Chronic systolic (congestive) heart failure Closed right tibial fracture COPD (chronic obstructive pulmonary disease) Diabetes mellitus type 2 in nonobese Essential (primary) hypertension Flank pain Fracture of distal end of right tibia Hematemesis Hiatal hernia History of peptic ulcer disease History of ST elevation myocardial infarction (STEMI) HTN (hypertension) Hyperglycemia due to type 2 diabetes mellitus IBS (irritable bowel syndrome) Irritable bowel syndrome with diarrhea Ischemic cardiomyopathy Left ventricular hypertrophy Major depression Multiple sclerosis Nicotine abuse Nondisplaced pilon fracture of right tibia, initial encounter for closed fracture BRYAN (obstructive sleep apnea) Osteoporosis Pain of right lower extremity Paroxysmal atrial fibrillation RLS (restless legs syndrome) Suicidal ideation Tachycardia Takotsubo syndrome Vitamin B12 deficiency Home Medications albuterol sulfate 2 puff INHALATION Q6H PRN PRN 10/23/17 [History Last Taken 06/08/19] teriflunomide 14 mg PO DAILY 09/20/19 [History Last Taken 08/14/20 09:00] modafinil 200 mg PO DAILY 12/12/19 [History Last Taken 08/14/20 09:00] acetaminophen 1,000 mg PO TID PRN #1 tablet 07/29/20 [Rx Last Taken Unknown] blood sugar diagnostic #100 each 08/10/20 [Rx Last Taken Unknown] ascorbic acid (vitamin C) 500 mg PO DAILY #30 tab.chew 08/17/20 [Rx Last Taken Unknown] atorvastatin 40 mg tablet 40 mg PO DAILY #30 tab 09/18/20 [Rx Last Taken Unknown] cholecalciferol (vitamin D3) 25 mcg (1,000 unit) capsule 50 mcg PO DAILY cap 09/18/20 [History Last Taken Unknown] pantoprazole 40 mg tablet,delayed release 40 mg PO DAILY #30 tablet 09/18/20 [Rx Last Taken Unknown] acidophilus-pectin, citrus 1 cap PO DAILY 09/23/20 [History Last Taken Unknown] donepezil 10 mg tablet 20 mg PO DAILY #180 tab 10/02/20 [Rx Last Taken Unknown] isosorbide mononitrate 30 mg tablet,extended release 24 hr 30 mg PO BID #60 tab 10/08/20 [Rx Last Taken Unknown] diclofenac potassium 50 mg PO BID #20 tab 11/12/20 [Rx Last Taken Unknown] calcium carbonate 600 mg calcium (1,500 mg) tablet 600 mg PO BID #180 tab 12/25/20 [Rx Last Taken Unknown] denosumab 60 mg/mL subcutaneous syringe 60 mg SUBCUT [id number] #1 ml 12/25/20 [Rx Last Taken Unknown] conj estrogen-medroxyprogesterone 0.625 mg-2.5 mg tablet 1 tab PO DAILY #28 tab 01/11/21 [Rx Last Taken Unknown] pioglitazone 30 mg tablet 30 mg PO DAILY #90 tab 01/15/21 [Rx Last Taken Unknown] potassium chloride 20 mEq tablet,extended release 20 meq PO DAILY #90 tab 09/21/21 [Rx Last Taken Unknown] ropinirole 1 mg tablet 1 mg PO BID #180 tab 01/30/21 [Rx Last Taken Unknown] carvedilol 25 mg tablet 25 mg PO BID #180 tab 02/05/21 [Rx Last Taken Unknown] duloxetine 30 mg capsule,delayed release 30 mg PO BID #60 cap 02/11/21 [Rx Last Taken Unknown] glimepiride 4 mg tablet 4 mg PO BID #60 tab 02/11/21 [Rx Last Taken Unknown] sucralfate 1 gram tablet 1 g PO 4X/DAY #120 tablet 02/20/21 [Rx Last Taken Unkno wn] ondansetron 8 mg disintegrating tablet 8 mg PO Q12H PRN #30 tab 02/28/21 [Rx Last Taken Unknown] hydroxyzine HCl 50 mg tablet 50 mg PO TID #90 tab 03/12/21 [Rx Last Taken Unknown] lisinopril 20 mg tablet 20 mg PO BID #180 tab 04/02/21 [Rx Last Taken Unknown] tizanidine 2 mg tablet 2 mg PO QHS PRN #30 tab 04/04/21 [Rx Last Taken Unknown] tramadol 50 mg tablet 50 mg PO Q12H PRN #14 tab 04/04/21 [Rx Last Taken Unknown] nitrofurantoin monohyd/m-cryst [Macrobid] 100 mg PO Q12H 5 Days #10 cap 04/07/21 [Rx Last Taken Unknown] phenazopyridine [Pyridium] 200 mg PO TID #6 tab 04/07/21 [Rx Last Taken Unknown] apixaban 5 mg tablet 5 mg PO BID #180 tab 04/10/21 [Rx Last Taken Unknown] nitroglycerin 0.4 mg sublingual tablet 0.4 mg SL Q5-15M #25 tab 04/10/21 [Rx Last Taken Unknown] dicyclomine 20 mg tablet 20 mg PO BID PRN #180 tablet 04/15/21 [Rx Last Taken Unknown] ondansetron 4 mg disintegrating tablet 4 mg PO Q6H PRN #10 tab 04/15/21 [Rx Last Taken Unknown] Allergy/AdvReac Type Severity Reaction Status Date / Time indomethacin [From Indocin] Allergy Hives Verified 04/19/21 07:58 indomethacin sodium Allergy Hives Verified 04/19/21 07:58 [From Indocin] iodine Allergy Hives Verified 04/19/21 07:58 propoxyphene napsylate Allergy Out of Verified 04/19/21 07:58 [From Darvocet-N] control aripiprazole [From Abilify] AdvReac Other Verified 04/19/21 07:58 aspirin AdvReac Upset Verified 04/19/21 07:58 Stomach clindamycin AdvReac Nausea Verified 04/19/21 07:58 metformin AdvReac Other Verified 04/19/21 07:58 sumatriptan [From Imitrex] AdvReac Vomiting Verified 04/19/21 07:58 Family History Father Cancer Lung cancer Mother Cancer Pancreatic cancer Surgical History History of amputation of left great toe History of back surgery History of cervical discectomy History of coronary artery stent placement (04/08/16) History of endoscopy History of left heart catheterization (09/25/20) History of left knee surgery History of loop recorder (06/2014) History of tonsillectomy and adenoidectomy Social History household members: none Smoking Status: Current every day smoker tobacco type: cigarettes alcohol intake: never substance use type: does not use caffeine: Yes Type: coffee Number of servings: 1 what type of physical activity do you participate in: none and other details: Physical Therapy ROS ROS ED Constitutional Constitutional ED: Denies chills or fever(s) Eyes Eyes: Denies change in vision ENT ENT ED: Denies rhinorrhea or sore throat Cardiovascular Cardiovascular: Reports as per HPI; Denies palpitations or racing heartbeat Respiratory/Chest Respiratory/Chest: Denies dyspnea Gastrointestinal Gastrointestinal: Denies abdominal pain, diarrhea, nausea or vomiting Genitourinary Genitourinary ED: Reports dysuria and urinary frequency; Denies hematuria Musculoskeletal Musculoskeletal: Denies myalgias Integumentary Denies rash Neurologic Neurologic: Denies headache(s), paresthesias or weakness Endocrine Endocrinology: Denies polydipsia or polyuria Hematologic/Lymphatic Hematologic/Lymphatic: Reports easy bleeding and easy bruising Allergic/Immunologic Allergic/Immunologic ED: Denies mouth swelling or urticaria EXAM Physical Exam Const Vital Signs: 04/19/21 07:54 04/19/21 08:41 Temperature 97.8 F Temperature Source Temporal Pulse Rate 68 Respiratory Rate 18 Blood Pressure 168/91 H Blood Pressure Mean 116 Pulse Ox 99 Oxygen Delivery Method Room Air Room Air Positive well nourished and well developed General Appearance ED: well developed and NAD HEENT Reports moist mucous membranes Eyes General Eye ED: Negative for pale conjunctiva Neck no JVD Chest Wall palpation of chest normal Resp normal respiratory effort and clear to auscultation bilaterally Resp Narrative: No pain with a deep breath or with palpation. Effort and Inspection: Negative for respiratory distress Auscultation: Negative for rales, rhonchi or wheezes Cardio regular rate, regular rhythm and no murmurs Rate: other Other Details: Patient has a history of atrial fibrillation/flutter but she sounds regular and appears to be in normal sinus rhythm on the monitor. GI normal to inspection, nondistended, normoactive bowel sounds, soft to palpation and non-tender Back/Spine no CVA tenderness Extremity normal to inspection General Extremety ED: Negative for tenderness Neuro oriented x3 Sensorium / Orientation: awake and alert Psych mental status grossly normal Skin no rashes or lesions noted and no wounds MDM MDM MDM Narrative Medical decision making narrative: Patient had denied any nausea. She did ask for something for nausea though. I asked her why she states that if she gets pain meds she oftentimes gets nauseated so she wants this to prevent nausea. I will also get her her morning blood pressure medicine which she is due for. Currently, her blood pressure is 168/91. She does feel better as her blood pressure is coming down. I also reviewed her heart catheterization from September of this year. There were no significant areas of stenosis. Stent was patent. Patient CBC shows no acute abnormality. Electrolytes show a very slight rising creatinine. Troponin is negative despite having discomfort for approximately 8 hours. Urine shows no sign of infection. Patient states she frequently has these urinary symptoms. I do not think her u rinalysis justifies antibiotics. Patient also has chest pain all the time when her blood pressure goes up. She does have known heart disease but she also has a heart catheterization in this September. She has negative enzymes with 8 hours of symptoms. We did give patient pain meds here. We have then found out she does have a care plan regarding narcotic use. She will be able to get home today. I do not think she requires admission at this time. Lab Data Attestation: I reviewed the patient's lab results. Labs: Laboratory Results - last 24 hr 04/19/21 04/19/21 04/19/21 08:30 08:30 09:00 WBC 9.6 RBC 4.41 Hgb 12.5 Hct 39.3 MCV 89.1 MCH 28.3 MCHC 31.8 L RDW Std Deviation 57.1 H RDW Coeff of [place] 17.4 H Plt Count 274 MPV 10.0 Immature Gran % (Auto) 0.500 Neut % (Auto) 64.6 Lymph % (Auto) 18.6 L [place] % (Auto) 9.0 Eos % (Auto) 6.0 H Baso % (Auto) 1.3 H Absolute Neuts (auto) 6.2 Absolute Lymphs (auto) 1.78 Nucleated RBC % 0 Sodium Cancelled 132 L Potassium Cancelled 5.1 Chloride Cancelled 103 Carbon Dioxide Cancelled 25.0 Anion Gap Cancelled 4 L BUN Cancelled 21 H Creatinine Cancelled 1.06 H Estim Creat Clear Calc Cancelled 45.08 Est GFR (MDRD) Af Amer Cancelled 67 Est GFR (MDRD) Non-Af Cancelled 55 L BUN/Creatinine Ratio Cancelled 19.8 Glucose Cancelled 205 H Calcium Cancelled 10.0 Troponin I High Sens Cancelled 10 Urine Color Urine Clarity Urine pH Ur Specific [place] Urine Protein Urine Glucose (UA) Urine Ketones Urine Occult Blood Urine Nitrite Urine Bilirubin Urine Urobilinogen Ur Leukocyte Esterase Urine RBC Urine WBC Ur Squamous Epith Cells Urine Bacteria Urine Mucus 04/19/21 09:04 WBC RBC Hgb Hct MCV MCH MCHC RDW Std Deviation RDW Coeff of [place] Plt Count MPV Immature Gran % (Auto) Neut % (Auto) Lymph % (Auto) [place] % (Auto) Eos % (Auto) Baso % (Auto) Absolute Neuts (auto) Absolute Lymphs (auto) Nucleated RBC % Sodium Potassium Chloride Carbon Dioxide Anion Gap BUN Creatinine Estim Creat Clear Calc Est GFR (MDRD) Af Amer Est GFR (MDRD) Non-Af BUN/Creatinine Ratio Glucose Calcium Troponin I High Sens Urine Color Yellow Urine Clarity Clear Urine pH 5.0 Ur Specific [place] 1.015 Urine Protein 15 H Urine Glucose (UA) Normal Urine Ketones Negative Urine Occult Blood Negative Urine Nitrite Negative Urine Bilirubin Negative Urine Urobilinogen Normal Ur Leukocyte Esterase 100 H Urine RBC 0 SEEN Urine WBC 0-5 SEEN Ur Squamous Epith Cells 0-5 SEEN Urine Bacteria 0 SEEN Urine Mucus 0 SEEN Radiography Diagnostic Testing: Clinical Impression(s) from Imaging Studies Chest X-Ray 04/19/21 08:30 IMPRESSION: Normal x-ray examination of the chest. Electronically Signed: Armando Taylor MD at 8:42 EST Tel , Service support , EKG Initial EKG: Comments: EKG done for chest pain read by me shows a normal sinus rhythm with overall rate of 62. Old septal changes that were seen before. No acute ST elevation or depression. No ventricular ectopy. PA interval, QRS duration and QTc are normal. The EKG is similar to a prior from March 19, 2021. Discharge Plan Triage Chief Complaint: Chest Pain ED Provider: Fawad Awad Dx/Rx/DC Orders Clinical Impression: Recurrent chest pain, Dysuria Instructions: Dysuria, ED Chest Pain, Uncertain Cause Prescriptions: No Action cholecalciferol (vitamin D3) 25 mcg (1,000 unit) capsule 50 mcg PO DAILY RF: 0 isosorbide mononitrate 30 mg tablet extended release 24 hr 30 mg PO BID Qty: 60 RF: 11 donepezil [Aricept] 10 mg tablet 20 mg PO DAILY Qty: 180 RF: 1 calcium carbonate 600 mg calcium (1,500 mg) tablet 600 mg PO BID Qty: 180 RF: 1 Prolia 60 mg/mL syringe 60 mg subcut [id number] Qty: 1 RF: 1 ropinirole 1 mg tablet 1 mg PO BID Qty: 180 RF: 1 sucralfate 1 gram tablet 1 g PO 4X/DAY Qty: 120 RF: 1 tramadol 50 mg tablet 50 mg PO Q12H PRN (Reason: pain) Qty: 14 RF: 0 tizanidine 2 mg tablet 2 mg PO QHS PRN (Reason: muscle spasticity) Qty: 30 RF: 0 Eliquis 5 mg tablet 5 mg PO BID Qty: 180 RF: 3 nitroglycerin 0.4 mg tablet, sublingual 0.4 mg SL Q5-15M Qty: 25 RF: 3 albuterol sulfate 1 INHALER inhaler 2 puff INHALATION Q6H PRN PRN (Reason: Sob &/Or Wheezing) RF: 0 teriflunomide 14 mg tablet 14 mg PO DAILY RF: 0 modafinil 200 MG tablet 200 mg PO DAILY RF: 0 acetaminophen 500 MG tablet 1,000 mg PO TID PRN (Reason: pain -02/03) Qty: 1 RF: 0 ascorbic acid (vitamin C) 500 MG tablet,chewable 500 mg PO DAILY Qty: 30 RF: 0 acidophilus-pectin, citrus 100 million cell-10 mg Capsule 1 cap PO DAILY RF: 0 diclofenac potassium 50 mg tablet 50 mg PO BID Qty: 20 RF: 0 phenazopyridine [Pyridium] 200 MG tablet 200 mg PO TID Qty: 6 RF: 0 nitrofurantoin monohyd/m-cryst [Macrobid] 100 mg capsule 100 mg PO Q12H 5 Days Qty: 10 RF: 0 (DME) Accu-Chek Ada Plus test strp Strip See Rx Instructions .ROUTE .MEDSUPPLY Qty: 100 RF: 3 pantoprazole 40 mg tablet,delayed release (DR/EC) 40 mg PO DAILY Qty: 30 RF: 11 atorvastatin 40 mg tablet 40 mg PO DAILY Qty: 30 RF: 11 conj estrog-medroxyprogest raqule 0.625-2.5 mg tablet 1 tab PO DAILY Qty: 28 RF: 0 pioglitazone 30 mg tablet 30 mg PO DAILY Qty: 90 RF: 0 potassium chloride 20 mEq tablet extended release 20 meq PO DAILY Qty: 90 RF: 0 carvedilol 25 mg tablet 25 mg PO BID Qty: 180 RF: 3 glimepiride 4 mg tablet 4 mg PO BID Qty: 60 RF: 1 duloxetine [Cymbalta] 30 mg capsule,delayed release(DR/EC) 30 mg PO BID Qty: 60 RF: 2 ondansetron 8 mg tablet,disintegrating 8 mg PO Q12H PRN (Reason: nausea and vomiting) Qty: 30 RF: 1 hydroxyzine HCl 50 mg tablet 50 mg PO TID Qty: 90 RF: 0 lisinopril 20 mg tablet 20 mg PO BID Qty: 180 RF: 3 ondansetron 4 mg tablet,disintegrating 4 mg PO Q6H PRN (Reason: nausea and vomiting) Qty: 10 RF: 0 dicyclomine 20 mg tablet 20 mg PO BID PRN (Reason: abdominal discomfort) Qty: 180 RF: 2 Primary Care Provider: Tom Sherman Referrals: Tom Sherman MD [Primary Care Provider] - 3-5 Days Disposition Disposition: Home, Self Care
[2021-04-19] MEDS: Morphine 2 MG/ML Syringe IV (08:29)
[2021-04-19] MEDS: Ondansetron 4 MG/2 ML Vial IV (08:29)
--- NOTE | 2021-04-19 08:30 | RAD_ITS ---
STUDY: X-RAY CHEST REASON FOR EXAM: Female, 65 years old. chest pain TECHNIQUE: Single AP portable view of the chest. COMPARISON: 01/28/2021 FINDINGS: The lungs are clear and expanded. There is no demonstrated pleural abnormality. Normal size heart. Normal mediastinum and sara. Normal visualized pulmonary arteries. Normal visualized aortic arch and descending thoracic aorta. Normal visualized thoracic spine. Normal visualized ribs, clavicles, and shoulders. There is no demonstrated abnormality of the visualized soft tissue structures of the upper abdomen. RAD/Chest 1 View (Portable) IMPRESSION: Normal x-ray examination of the chest. Electronically Signed: Armando Taylor MD at 8:42 EST Tel , Service support ,
[2021-04-19 08:41] LABS: Absolute Lymphocyte Count 1.78 X10^3/uL (0.83-4.51); Absolute Neutrophil Count 6.2 X10^3/uL (2.0-7.7); Basophil# 0.12 X10^3/uL; Basophil% 1.3 % (0-1); Eosinophil# 0.57 X10^3/uL; Hematocrit 39.3 % (37-47); Hemoglobin 12.5 g/dL (12.0-15.0); Lymphocyte # 1.78 X10^3/ul (0.83-4.51); Lymphocyte % 18.6 % (19-41); Mean Corp Hgb Conc 31.8 g/dL (32-36); Mean Corpuscular Hgb 28.3 pg (27.0-32.0); Mean Corpuscular Volume 89.1 fL (81-99); Monocyte# 0.86 X10^3/uL; NRBC Flagged by Analyzer 0 % (0-5); Neutrophil # 6.17 X10^3/uL (2.7-7.7); Neutrophil % 64.6 % (47-70); Platelet Count 274 K/mm3 (150-450); RBC Distribution Width CV 17.4 % (11.6-14.6); RBC Distribution Width SD 57.1 fl (35.1-43.9); Red Blood Count 4.41 M/mm3 (4.2-5.4); White Blood Count 9.6 K/mm3 (4.4-11.0)
[2021-04-19] MEDS: Lisinopril 20 MG Tablet PO (08:42)
[2021-04-19 09:11] LABS: Bacteria 0 SEEN /hpf (None Seen); Mucous, Urine 0 SEEN /hpf (<or=2+); Red Blood Cells-Urine 0 SEEN /hpf (0-5)
[2021-04-19 09:24] LABS: Color, Urine Yellow (Yellow); Glucose, Dipstick Normal (Normal); Ketone-Dipstick Negative (Negative); Leukocyte Esterase-Dipstick 100 /ul (Negative); Nitrite-Dipstick Negative (Negative); Occult Blood-Urine Negative /ul (Negative); Protein-Dipstick 15 mg/dl (Negative); Specific Gravity, Urine 1.015 (1.002-1.030); Urine Bilirubin Dipstick Negative (Negative); Urine Clarity Clear (Clear); Urine Urobilinogen Normal (Normal)
[2021-04-19 09:31] LABS: Anion Gap 4 (5-15); BUN 21 mg/dL (7-18); BUN/Creat Ratio 19.8 RATIO (10-20); Chloride 103 mmol/L (98-107); Creatinine, Serum 1.06 mg/dL (0.55-1.02); EST Glomerular Filtration Rate 55 mL/min (>60); Est Glom Filt Rate - Afr Amer 67 mL/min (>60); Estimated Creatinine Clearance 45.08 ml/min; Glucose 205 mg/dL (74-106); Potassium 5.1 mmol/L (3.5-5.1); Sodium Level 132 mmol/L (136-145); Troponin-I HS 10 pg/mL (3.0-54.0)
[2021-04-19 09:35] LABS: Squamous Epithelial Cells - UA 0-5 SEEN /hpf (5-10); White Blood Cells 0-5 SEEN /hpf (0-5)
[2021-04-19] MEDS: Morphine 4 MG/ML Syringe IV (09:45)
[2021-04-19 10:29] VITALS: BP 132/78; RESP 16; O2SAT 97
--- NOTE | 2021-04-19 10:37 | ED.RN ---
THIS RN HAD A CONVERSATION WITH PT REGARDING POSSIBILITY OF HAVING A CARE PLAN. PT STATES OH HEATHER FROM HERE CALLED YESTERDAY AND INSINUATED I HAD A PROBLEM WITH NARCOTICS, BUT THEY NEVER SAID CARE PLAN. THIS RN CONTACTED HEATHER IN CASE MANAGEMENT WHO STATES SHE CALLED PT YESTERDAY AND TOLD HER SHE WAS BEING PLACED ON A CARE PLAN AND THAT THEY HAD NOTIFIED HER PRIMARY PHYSICIAN. INFORMED PT THAT THE COPY WOULD BE SENT TO HER
== END 2021-04-19 10:30 | disposition home or self-care (01) ==
PROVIDERS: Emergency Provider Emergency Medicine; PCP Internal Medicine
DX: R07.9 Chest pain, unspecified (principal); R30.0 Dysuria; I25.10 Atherosclerotic heart disease of native coronary artery without angina pectoris; I11.0 Hypertensive heart disease with heart failure; I50.22 Chronic systolic (congestive) heart failure; I48.0 Paroxysmal atrial fibrillation; I25.5 Ischemic cardiomyopathy; I25.2 Old myocardial infarction; E11.65 Type 2 diabetes mellitus with hyperglycemia; J44.9 Chronic obstructive pulmonary disease, unspecified; F32.9 Major depressive disorder, single episode, unspecified; F41.9 Anxiety disorder, unspecified; G35 Multiple sclerosis; F17.210 Nicotine dependence, cigarettes, uncomplicated; Z79.01 Long term (current) use of anticoagulants; Z79.84 Long term (current) use of oral hypoglycemic drugs; Z79.899 Other long term (current) drug therapy; Z87.440 Personal history of urinary (tract) infections
CPT/HCPCS: 71045; 80048; 81001; 84484; 85025; 93005; 96374; 96375; 96376; 99285; A4216; J2405

== ENCOUNTER 2021-04-24 08:48 | Emergency (ER) | payer MEDICARE, MEDICAID, SELFPAY ==
[2016-07-13 11:45] VITALS: BMI 31.4
[2021-04-24 08:51] VITALS: BP 126/60; PULSE 82; RESP 18; TEMP 36.6; O2SAT 96; BMI 30.9
--- NOTE | 2021-04-24 09:08 | EDS_ITS ---
HPI History of Present Illness Chief Complaint: Hypertension Informant: patient Narrative Narrative: Patient complains ofBlood pressure. She had high blood pressure last night at approximately 170. She has taken nitroglycerin for her blood pressure. Although this patient has chest pain frequently she was not having chest pain with these symptoms. She then took her morning medicines. She took these on an empty stomach. She states she feels slightly nauseated from them but this is common for her. She has not vomited. She is not having dyspnea, chest pain abdominal pain. She actually is denying urinary symptoms today 2. She was concerned because she states when her blood pressure goes up she will oftentimes get sick but she feels a little better now. [facility] Medical History Anxiety Apical mural thrombus with acute [place] Atherosclerotic heart disease of [place] coronary artery without angina pectoris Cervical spinal stenosis Chronic anticoagulation Chronic back pain Chronic systolic (congestive) heart failure Closed right tibial fracture COPD (chronic obstructive pulmonary disease) Diabetes mellitus type 2 in nonobese Essential (primary) hypertension Flank pain Fracture of distal end of right tibia Hematemesis Hiatal hernia History of peptic ulcer disease History of ST elevation myocardial infarction (STEMI) HTN (hypertension) Hyperglycemia due to type 2 diabetes mellitus IBS (irritable bowel syndrome) Irritable bowel syndrome with diarrhea Ischemic cardiomyopathy Left ventricular hypertrophy Major depression Multiple sclerosis Nicotine abuse Nondisplaced pilon fracture of right tibia, initial encounter for closed fracture BRYAN (obstructive sleep apnea) Osteoporosis Pain of right lower extremity Paroxysmal atrial fibrillation RLS (restless legs syndrome) Suicidal ideation Tachycardia Takotsubo syndrome Vitamin B12 deficiency Home Medications albuterol sulfate 2 puff INHALATION Q6H PRN PRN 10/23/17 [History Last Taken 06/08/19] teriflunomide 14 mg PO DAILY 09/20/19 [History Last Taken 08/14/20 09:00] modafinil 200 mg PO DAILY 12/12/19 [History Last Taken 08/14/20 09:00] acetaminophen 1,000 mg PO TID PRN #1 tablet 07/29/20 [Rx Last Taken Unknown] blood sugar diagnostic #100 each 08/10/20 [Rx Last Taken Unknown] ascorbic acid (vitamin C) 500 mg PO DAILY #30 tab.chew 08/17/20 [Rx Last Taken Unknown] atorvastatin 40 mg tablet 40 mg PO DAILY #30 tab 09/18/20 [Rx Last Taken Unknown] cholecalciferol (vitamin D3) 25 mcg (1,000 unit) capsule 50 mcg PO DAILY cap 09/18/20 [History Last Taken Unknown] acidophilus-pectin, citrus 1 cap PO DAILY 09/23/20 [History Last Taken Unknown] donepezil 10 mg tablet 20 mg PO DAILY #180 tab 10/02/20 [Rx Last Taken Unknown] isosorbide mononitrate 30 mg tablet,extended release 24 hr 30 mg PO BID #60 tab 10/08/20 [Rx Last Taken Unknown] diclofenac potassium 50 mg PO BID #20 tab 11/12/20 [Rx Last Taken Unknown] calcium carbonate 600 mg calcium (1,500 mg) tablet 600 mg PO BID #180 tab 12/25/20 [Rx Last Taken Unknown] denosumab 60 mg/mL subcutaneous syringe 60 mg SUBCUT [id number] #1 ml 12/25/20 [Rx Last Taken Unknown] conj estrogen-medroxyprogesterone 0.625 mg-2.5 mg tablet 1 tab PO DAILY #28 tab 01/11/21 [Rx Last Taken Unknown] potassium chloride 20 mEq tablet,extended release 20 meq PO DAILY #90 tab 01/15/21 [Rx Last Taken Unknown] ropinirole 1 mg tablet 1 mg PO BID #180 tab 01/30/21 [Rx Last Taken Unknown] carvedilol 25 mg tablet 25 mg PO BID #180 tab 02/05/21 [Rx Last Taken Unknown] duloxetine 30 mg capsule,delayed release 30 mg PO BID #60 cap 02/11/21 [Rx Last Taken Unknown] sucralfate 1 gram tablet 1 g PO 4X/DAY #120 tablet 02/20/21 [Rx Last Taken Unknown] ondansetron 8 mg disintegrating tablet 8 mg PO Q12H PRN #30 tab 02/28/21 [Rx Last Taken Unknown] lisinopril 20 mg tablet 20 mg PO BID #180 tab 04/02/21 [Rx Last Taken Unknown] tizanidine 2 mg tablet 2 mg PO QHS PRN #30 tab 04/04/21 [Rx Last Taken Unknown] tramadol 50 mg tablet 50 mg PO Q12H PRN #14 tab 04/04/21 [Rx Last Taken Unknown] nitrofurantoin monohyd/m-cryst [Macrobid] 100 mg PO Q12H 5 Days #10 cap 04/07/21 [Rx Last Taken Unknown] phenazopyridine [Pyridium] 200 mg PO TID #6 tab 04/07/21 [Rx Last Taken Unknown] nitroglycerin 0.4 mg sublingual tablet 0.4 mg SL Q5-15M #25 tab 04/10/21 [Rx Last Taken Unknown] dicyclomine 20 mg tablet 20 mg PO BID PRN #180 tablet 04/15/21 [Rx Last Taken Unknown] ondansetron 4 mg disintegrating tablet 4 mg PO Q6H PRN #10 tab 04/15/21 [Rx Last Taken Unknown] amlodipine 2.5 mg tablet 2.5 mg PO DAILY #90 tab 04/22/21 [Rx Last Taken Unknown] apixaban 5 mg tablet 5 mg PO BID #180 tab 04/22/21 [Rx Last Taken Unknown] glimepiride 4 mg tablet 4 mg PO BID #60 tab 04/23/21 [Rx Last Taken Unknown] hydroxyzine HCl 50 mg tablet 50 mg PO TID #90 tab 04/23/21 [Rx Last Taken Unknown] pantoprazole 40 mg tablet,delayed release 40 mg PO DAILY #30 tablet 04/23/21 [Rx Last Taken Unknown] pioglitazone 30 mg tablet 30 mg PO DAILY #30 tab 04/23/21 [Rx Last Taken Unknown] Allergy/AdvReac Type Severity Reaction Status Date / Time indomethacin [From Indocin] Allergy Hives Verified 04/19/21 07:58 indomethacin sodium Allergy Hives Verified 04/19/21 07:58 [From Indocin] iodine Allergy Hives Verified 04/19/21 07:58 propoxyphene napsylate Allergy Out of Verified 04/19/21 07:58 [From Darvocet-N] control aripiprazole [From Abilify] AdvReac Other Verified 04/19/21 07:58 aspirin AdvReac Upset Verified 04/19/21 07:58 Stomach clindamycin AdvReac Nausea Verified 04/19/21 07:58 metformin AdvReac Other Verified 04/19/21 07:58 sumatriptan [From Imitrex] AdvReac Vomiting Verified 04/19/21 07:58 Family History Father Cancer Lung cancer Mother Cancer Pancreatic cancer Surgical History History of amputation of left great toe History of back surgery History of cervical discectomy History of coronary artery stent placement (04/08/16) History of endoscopy History of left heart catheterization (09/25/20) History of left knee surgery History of loop recorder (06/2014) History of tonsillectomy and adenoidectomy Social History household members: none Smoking Status: Current every day smoker tobacco type: cigarettes alcohol intake: never substance use type: does not use caffeine: Yes Type: coffee Number of servings: 1 what type of physical activity do you participate in: none and other details: Physical Therapy ROS ROS ED Constitutional Constitutional ED: Denies chills or fever(s) Eyes Eyes: Denies blurry vision ENT ENT ED: Denies rhinorrhea or sore throat Cardiovascular Cardiovascular: Denies chest pain, palpitations or racing heartbeat Respiratory/Chest Respiratory/Chest: Denies cough, dyspnea or sputum Gastrointestinal Gastrointestinal: Reports nausea; Denies abdominal pain, diarrhea or vomiting Genitourinary Genitourinary ED: Denies dysuria Musculoskeletal Musculoskeletal: Denies myalgias Integumentary Denies rash Neurologic Neurologic: Reports headache(s) Psychiatric Psychiatric: Denies depression Endocrine Endocrinology: Denies polydipsia or polyuria Allergic/Immunologic Allergic/Immunologic ED: Denies mouth swelling or urticaria EXAM Physical Exam Const Vital Signs: 04/24/21 08:51 04/24/21 08:54 Temperature 98 F Temperature Source Oral Pulse Rate 82 Respiratory Rate 18 Respiratory Pattern Normal Blood Pressure 126/60 H Blood Pressure Mean 82 Pulse Ox 96 Oxygen Delivery Method Room Air Positive well nourished and well developed General Appearance ED: well developed and NAD HEENT Reports moist mucous membranes; Denies dry mucous membranes Mouth ED: No dry mucous membranes Mouth: No dry mucous membranes Eyes General Eye ED: Yes pale conjunctiva Neck supple Chest Wall palpation of chest normal Resp normal respiratory effort and clear to auscultation bilaterally Cardio regular rate and regular rhythm GI normal to inspection, nondistended, normoactive bowel sounds and non-tender Palpation: soft Back/Spine no CVA tenderness Extremity normal to inspection General Extremety ED: Negative for tenderness Neuro oriented x3 Sensorium / Orientation: alert Psych mental status grossly normal Skin no rashes or lesions noted MDM MDM MDM Narrative Medical decision making narrative: This patient presents with high blood pressure last night that is now resolved with her medications. She is not having symptoms other than nausea. She did not have chest pain or dyspnea. She has a long history of high blood pressure. Her blood pressure is controlled at this time. I do not think this requires a repeat work-up. She has been evaluated many times for many symptoms. She is really not having symptoms now. She has a history of blood pressure this resolved. I think she is okay to go home. I will give her something for nausea as this is a recurrent problem for her. When I was leaving the room she asked if she could have something for pain for her headache from the nitro. I explained that we are not going to use narcotics for the pain but I am happy to give her Tylenol. We discussed reasons that would prompt her to return. We discussed blood pressure levels that would prompt return. Discharge Plan Triage Chief Complaint: Hypertension ED Provider: Fawad Awad Dx/Rx/DC Orders Clinical Impression: History of high blood pressure, Nausea Instructions: ED High Blood Pressure Hypertension Prescriptions: No Action cholecalciferol (vitamin D3) 25 mcg (1,000 unit) capsule 50 mcg PO DAILY RF: 0 isosorbide mononitrate 30 mg tablet extended release 24 hr 30 mg PO BID Qty: 60 RF: 11 donepezil [Aricept] 10 mg tablet 20 mg PO DAILY Qty: 180 RF: 1 calcium carbonate 600 mg calcium (1,500 mg) tablet 600 mg PO BID Qty: 180 RF: 1 Prolia 60 mg/mL syringe 60 mg subcut [id number] Qty: 1 RF: 1 ropinirole 1 mg tablet 1 mg PO BID Qty: 180 RF: 1 sucralfate 1 gram tablet 1 g PO 4X/DAY Qty: 120 RF: 1 tramadol 50 mg tablet 50 mg PO Q12H PRN (Reason: pain) Qty: 14 RF: 0 tizanidine 2 mg tablet 2 mg PO QHS PRN (Reason: muscle spasticity) Qty: 30 RF: 0 nitroglycerin 0.4 mg tablet, sublingual 0.4 mg SL Q5-15M Qty: 25 RF: 3 albuterol sulfate 1 INHALER inhaler 2 puff INHALATION Q6H PRN PRN (Reason: Sob &/Or Wheezing) RF: 0 teriflunomide 14 mg tablet 14 mg PO DAILY RF: 0 modafinil 200 MG tablet 200 mg PO DAILY RF: 0 acetaminophen 500 MG tablet 1,000 mg PO TID PRN (Reason: pain -02/03) Qty: 1 RF: 0 ascorbic acid (vitamin C) 500 MG tablet,chewable 500 mg PO DAILY Qty: 30 RF: 0 acidophilus-pectin, citrus 100 million cell-10 mg Capsule 1 cap PO DAILY RF: 0 diclofenac potassium 50 mg tablet 50 mg PO BID Qty: 20 RF: 0 phenazopyridine [Pyridium] 200 MG tablet 200 mg PO TID Qty: 6 RF: 0 nitrofurantoin monohyd/m-cryst [Macrobid] 100 mg capsule 100 mg PO Q12H 5 Days Qty: 10 RF: 0 (DME) Accu-Chek Ada Plus test strp Strip See Rx Instructions .ROUTE .MEDSUPPLY Qty: 100 RF: 3 atorvastatin 40 mg tablet 40 mg PO DAILY Qty: 30 RF: 11 conj estrog-medroxyprogest raquel 0.625-2.5 mg tablet 1 tab PO DAILY Qty: 28 RF: 0 potassium chloride 20 mEq tablet extended release 20 meq PO DAILY Qty: 90 RF: 0 carvedilol 25 mg tablet 25 mg PO BID Qty: 180 RF: 3 duloxetine [Cymbalta] 30 mg capsule,delayed release(DR/EC) 30 mg PO BID Qty: 60 RF: 2 ondansetron 8 mg tablet,disintegrating 8 mg PO Q12H PRN (Reason: nausea and vomiting) Qty: 30 RF: 1 lisinopril 20 mg tablet 20 mg PO BID Qty: 180 RF: 3 ondansetron 4 mg tablet,disintegrating 4 mg PO Q6H PRN (Reason: nausea and vomiting) Qty: 10 RF: 0 dicyclomine 20 mg tablet 20 mg PO BID PRN (Reason: abdominal discomfort) Qty: 180 RF: 2 amlodipine [Norvasc] 2.5 mg tablet 2.5 mg PO DAILY Qty: 90 RF: 3 Eliquis 5 mg tablet 5 mg PO BID Qty: 180 RF: 3 pioglitazone 30 mg tablet 30 mg PO DAILY Qty: 30 RF: 3 glimepiride 4 mg tablet 4 mg PO BID Qty: 60 RF: 3 hydroxyzine HCl 50 mg tablet 50 mg PO TID Qty: 90 RF: 1 pantoprazole 40 mg tablet,delayed release (DR/EC) 40 mg PO DAILY Qty: 30 RF: 3 Primary Care Provider: Tom Sherman Referrals: Tom Sherman MD [Primary Care Provider] - As Needed Disposition Disposition: Home, Self Care
[2021-04-24] MEDS: Acetaminophen 325 MG Tablet 650 MG PO (09:39)
[2021-04-24] MEDS: Ondansetron ODT 4 MG Tablet PO (09:39)
--- NOTE | 2021-04-24 09:52 | ED.RN ---
THIS RN IN TO DISCHARGE PT. PT BECOMES VERY VERBAL STATINGI'M NOT LEAVING UNTIL I GET A CT SCAN OF THE HEAD. PT STATES HIT HEAD THIS AM. THIS RN REMINDED PT THAT SHE DID NOT INFORM THIS RN OF HITTING HER HEAD, ONLY RIBS. PT STATES I DON'T UNDERSTAND THIS CARE PLAN THING EITHER, NO ONE EVER EXPLAINED IT. THIS RN VERBALLY GOES OVER CARE PLAN WITH PT. PLAN TO HAVE CASE MANAGEMENT IN TO SEE PT AND EXPLAIN OR PROVIDE COPY
--- NOTE | 2021-04-24 10:02 | CT_ITS ---
INDICATION: headache EXAMINATION: CT BRAIN - CT Head or Brain W/O Contrast Injection TECHNIQUE: Multiple axial images were obtained of the head without intravenous contrast. A radiation dose optimization technique was used for this scan. IV Contrast dosage and agent: None. COMPARISON: None FINDINGS: No evidence of parenchymal hemorrhages or contusions. No evidence of intra or extra-axial hemorrhage is seen. Subtle area of increased attenuation visualized in the anterior aspect of the inferior right frontal lobe seen on axial series 2 image 22 is most likely artifactual due to the beam hardening artifact. Scattered areas of low attenuation are visualized in the periventricular and subcortical white matter suggestive of chronic microvascular disease, no evidence of acute territorial infarct is seen. Mild prominence of the ventricles and sulci suggestive of mild chronic atrophic brain changes unremarkable for the patient''s age. Basal cisterns are patent. CALVARIUM, SKULL BASE, PARANASAL SINUSES AND MASTOID AIR CELLS: Clear. No discrete lytic or blastic abnormalities. ORBITS: Both globes, extraocular muscles, optic nerves and retrobulbar fat appear unremarkable. ASPECTS Score for Acute Strokes: 10 CT/Brain/Head without Contrast IMPRESSION: Chronic atrophic brain changes and chronic microvascular disease, no evidence of acute intracranial pathology is seen. Electronically Signed: Jeremias Lu MD at 10:20 EST Tel , Service support ,
--- NOTE | 2021-04-24 11:14 | ED.RN ---
THIS RN AND HEATHER CASE MANAGEMENT IN TO DISCUSS CARE PLAN WITH PT. PT REQUESTING [facility]IC[facility] FOR HOME. RECENT SCRIPT FOR [facility]SON ON 04/15/21
[2021-04-24 11:18] VITALS: BP 113/73; PULSE 70; RESP 20; O2SAT 96
--- NOTE | 2021-04-24 11:43 | CM.ED ---
SW Note SW was advised by JEAN MARIE webbert patient was asking about her care plan. PRAVIN and JEAN MARIE Plaza reviewed care plan with patient and a copy was provided to her. Patient was advised that care plan notes that pain medication will only be provided with acute and verifiable pain. SW encouraged patient to call her PCP today and schedule appointment. SW also inquired if patient is linked with [facility] and patient said that she has passport services. SW offered referral to Valeri at [facility]. SW made referral to [facility] Valeri Dykes regarding patient. No other SW needs at this time. Plan: Home with [facility]. Review of Care Plan Mary REYES
== END 2021-04-24 11:28 | disposition home or self-care (01) ==
LOC: ED 10:42
PROVIDERS: Emergency Provider Emergency Medicine; PCP Internal Medicine
DX: I11.0 Hypertensive heart disease with heart failure (principal); F17.210 Nicotine dependence, cigarettes, uncomplicated; I25.2 Old myocardial infarction; I25.10 Atherosclerotic heart disease of native coronary artery without angina pectoris; I48.0 Paroxysmal atrial fibrillation; I50.22 Chronic systolic (congestive) heart failure; J44.9 Chronic obstructive pulmonary disease, unspecified; G47.33 Obstructive sleep apnea (adult) (pediatric); G35 Multiple sclerosis; K58.0 Irritable bowel syndrome with diarrhea; Z79.899 Other long term (current) drug therapy; Z79.84 Long term (current) use of oral hypoglycemic drugs; R11.0 Nausea; W19.XXXA Unspecified fall, initial encounter; Y93.9 Activity, unspecified; Y92.239 Unspecified place in hospital as the place of occurrence of the external cause; Y99.9 Unspecified external cause status; R51.9 Headache, unspecified
CPT/HCPCS: 70450; 99285

== ENCOUNTER 2021-05-07 16:33 | Observation (INO) | payer MEDICARE, MEDICAID, SELFPAY ==
[2016-07-13 11:45] VITALS: BMI 31.4
[2021-05-07] VITALS (7 sets, daily range): BP systolic 96–189; BP diastolic 42–95; PULSE 64–89; RESP 16–18; TEMP 36.1–37.2; O2SAT 95–98; BMI 28.7
--- NOTE | 2021-05-07 16:34 | CM.ED ---
MINA Note On 05/02/2020 Mina received message from Annabel Orosco at [facility] [employer]. Ms. Orosco is patient's catalytic case operator from [facility]. Ms. orosco requested a copy of the care plan for patient and tox screen for patient. Ms. Orosco's phone number is [phone]. Her confidential fax number is [phone]. MINA called Annabel on this date and advised that if she wanted the care plan she needed to go to medical records. Annabel said that she has the fax number for [facility] medical records. Mary REYES
--- NOTE | 2021-05-07 16:45 | EKG12_ITS ---
Test Reason : CP Blood Pressure : / mmHG Vent. Rate : 081 BPM Atrial Rate : 081 BPM P-R Int : 158 ms QRS Dur : 080 ms QT Int : 382 ms P-R-T Axes : 035 -44 062 degrees QTc Int : 443 ms Normal sinus rhythm Left axis deviation Inferior infarct , age undetermined Anteroseptal infarct , age undetermined Abnormal ECG Confirmed by CATHERINE WITT, GRIS ([id number]), makeup editor YUNG MUNGUIA ([id number]) on 05/08/2021 11:51:28 AM Referred By: EZEKIEL/ARAM Confirmed By:GRIS ALEXANDER MD
--- NOTE | 2021-05-07 16:46 | EDS_ITS ---
HPI History of Present Illness Chief Complaint: Chest Pain Detail of Chief Complaint: Chest pain that started approximately 2:45 PM Informant: patient Narrative Narrative: Patient presents to the emergency department chief complaint of retro sternal heaviness and pain that started about 2:45 PM while at rest. Patient also complains of pain across her mid back. She took a nitro because of elevated blood pressure and a pulse of 123 which seemed to ease her discomfort a little bit and apparently she had taken a second nitro then. She has had pain similar in the past. Patient currently states that she has been treated for a blood clot in her heart and is on Eliquis. She had prior AL. Patient's had multiple visits to the emergency department for similar complaint of chest pain. She has history of diabetes, hypertension, depression, paroxysmal A. fib, and chronic back pain. 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 Cervical spinal stenosis Chronic anticoagulation Chronic back pain Chronic systolic (congestive) heart failure Closed right tibial fracture COPD (chronic obstructive pulmonary disease) Diabetes mellitus type 2 in nonobese Essential (primary) hypertension Flank pain Fracture of distal end of right tibia Hematemesis Hiatal hernia History of peptic ulcer disease History of ST elevation myocardial infarction (STEMI) HTN (hypertension) Hyperglycemia due to type 2 diabetes mellitus IBS (irritable bowel syndrome) Irritable bowel syndrome with diarrhea Ischemic cardiomyopathy Left ventricular hypertrophy Major depression Multiple sclerosis Nicotine abuse Nondisplaced pilon fracture of right tibia, initial encounter for closed fracture BRYAN (obstructive sleep apnea) Osteoporosis Pain of right lower extremity Paroxysmal atrial fibrillation RLS (restless legs syndrome) Suicidal ideation Tachycardia Takotsubo syndrome Vitamin B12 deficiency Home Medications albuterol sulfate 2 puff INHALATION Q6H PRN PRN 10/23/17 [History Last Taken 06/08/19] teriflunomide 14 mg PO DAILY 09/20/19 [History Last Taken 08/14/20 09:00] modafinil 200 mg PO DAILY 12/12/19 [History Last Taken 08/14/20 09:00] acetaminophen 1,000 mg PO TID PRN #1 tablet 07/29/20 [Rx Last Taken Unknown] blood sugar diagnostic #100 each 08/10/20 [Rx Last Taken Unknown] ascorbic acid (vitamin C) 500 mg PO DAILY #30 tab.chew 08/17/20 [Rx Last Taken Unknown] atorvastatin 40 mg tablet 40 mg PO DAILY #30 tab 09/18/20 [Rx Last Taken Unknown] cholecalciferol (vitamin D3) 25 mcg (1,000 unit) capsule 50 mcg PO DAILY cap 09/18/20 [History Last Taken Unknown] acidophilus-pectin, citrus 1 cap PO DAILY 09/23/20 [History Last Taken Unknown] donepezil 10 mg tablet 20 mg PO DAILY #180 tab 10/02/20 [Rx Last Taken Unknown] isosorbide mononitrate 30 mg tablet,extended release 24 hr 30 mg PO BID #60 tab 10/08/20 [Rx Last Taken Unknown] diclofenac potassium 50 mg PO BID #20 tab 11/12/20 [Rx Last Taken Unknown] calcium carbonate 600 mg calcium (1,500 mg) tablet 600 mg PO BID #180 tab 12/25/20 [Rx Last Taken Unknown] denosumab 60 mg/mL subcutaneous syringe 60 mg SUBCUT [id number] #1 ml 12/25/20 [Rx Last Taken Unknown] conj estrogen-medroxyprogesterone 0.625 mg-2.5 mg tablet 1 tab PO DAILY #28 tab 01/11/21 [Rx Last Taken Unknown] potassium chloride 20 mEq tablet,extended release 20 meq PO DAILY #90 tab 01/15/21 [Rx Last Taken Unknown] ropinirole 1 mg tablet 1 mg PO BID #180 tab 01/30/21 [Rx Last Taken Unknown] carvedilol 25 mg tablet 25 mg PO BID #180 tab 02/05/21 [Rx Last Taken Unknown] duloxetine 30 mg capsule,delayed release 30 mg PO BID #60 cap 02/11/21 [Rx Last Taken Unknown] ondansetron 8 mg disintegrating tablet 8 mg PO Q12H PRN #30 tab 02/28/21 [Rx Last Taken Unknown] lisinopril 20 mg tablet 20 mg PO BID #180 tab 04/02/21 [Rx Last Taken Unknown] tizanidine 2 mg tablet 2 mg PO QHS PRN #30 tab 04/04/21 [Rx Last Taken Unknown] tramadol 50 mg tablet 50 mg PO Q12H PRN #14 tab 04/04/21 [Rx Last Taken Unknown] nitrofurantoin monohyd/m-cryst [Macrobid] 100 mg PO Q12H 5 Days #10 cap 04/07/21 [Rx Last Taken Unknown] phenazopyridine [Pyridium] 200 mg PO TID #6 tab 04/07/21 [Rx Last Taken Unknown] nitroglycerin 0.4 mg sublingual tablet 0.4 mg SL Q5-15M #25 tab 04/10/21 [Rx Last Taken Unknown] dicyclomine 20 mg tablet 20 mg PO BID PRN #180 tablet 04/15/21 [Rx Last Taken Unknown] amlodipine 2.5 mg tablet 2.5 mg PO DAILY #90 tab 04/22/21 [Rx Last Taken Unknown] apixaban 5 mg tablet 5 mg PO BID #180 tab 04/22/21 [Rx Last Taken Unknown] glimepiride 4 mg tablet 4 mg PO BID #60 tab 04/23/21 [Rx Last Taken Unknown] hydroxyzine HCl 50 mg tablet 50 mg PO TID #90 tab 04/23/21 [Rx Last Taken Unknown] pantoprazole 40 mg tablet,delayed release 40 mg PO DAILY #30 tablet 04/23/21 [Rx Last Taken Unknown] pioglitazone 30 mg tablet 30 mg PO DAILY #30 tab 04/23/21 [Rx Last Taken Unknown] ondansetron 4 mg PO Q8H PRN #10 tab 04/24/21 [Rx Last Taken Unknown] sucralfate 1 gram tablet 1 g PO 4X/DAY #120 tablet 04/30/21 [Rx Last Taken Unknown] Allergy/AdvReac Type Severity Reaction Status Date / Time indomethacin [From Indocin] Allergy Hives Verified 04/19/21 07:58 indomethacin sodium Allergy Hives Verified 04/19/21 07:58 [From Indocin] iodine Allergy Hives Verified 04/19/21 07:58 propoxyphene napsylate Allergy Out of Verified 04/19/21 07:58 [From Darvocet-N] control aripiprazole [From Abilify] AdvReac Other Verified 04/19/21 07:58 aspirin AdvReac Upset Verified 04/19/21 07:58 Stomach clindamycin AdvReac Nausea Verified 04/19/21 07:58 metformin AdvReac Other Verified 04/19/21 07:58 sumatriptan [From Imitrex] AdvReac Vomiting Verified 04/19/21 07:58 Family History Father Cancer Lung cancer Mother Cancer Pancreatic cancer Surgical History History of amputation of left great toe History of back surgery History of cervical discectomy History of coronary artery stent placement (04/08/16) History of endoscopy History of left heart catheterization (09/25/20) History of left knee surgery History of loop recorder (06/2014) History of tonsillectomy and adenoidectomy Social History household members: none Smoking Status: Current every day smoker tobacco type: cigarettes alcohol intake: never substance use type: does not use caffeine: Yes Type: coffee Number of servings: 1 what type of physical activity do you participate in: none and other details: Physical Therapy ROS ROS ED Review of Systems ROS Unobtainable: other Constitutional Constitutional ED: Reports lethargy; Denies chills, fever(s), sweats or weight loss Eyes Eyes: Denies blurry vision, change in vision or diplopia ENT ENT ED: Denies rhinorrhea or sore throat Cardiovascular Cardiovascular: Reports racing heartbeat; Denies orthopnea Respiratory/Chest Respiratory/Chest: Reports dyspnea and dyspnea on exertion; Denies cough, orthopnea or sputum Gastrointestinal Gastrointestinal: Reports abdominal pain; Denies diarrhea, nausea or vomiting Genitourinary Genitourinary ED: Denies dysuria, hematuria or urinary frequency Musculoskeletal Musculoskeletal: Denies arthralgias, back pain, myalgias or neck pain Integumentary Denies abscess, Abrasions or rash Neurologic Neurologic: Denies headache(s) or weakness Psychiatric Psychiatric: Denies anxiety, depression or suicidal thoughts Endocrine Endocrinology: Denies polydipsia, polyphagia or polyuria Hematologic/Lymphatic Hematologic/Lymphatic: Denies easy bleeding, easy bruising or lymphadenopathy Allergic/Immunologic Allergic/Immunologic ED: Denies mouth swelling, tongue swelling or urticaria EXAM Physical Exam Const Vital Signs: 05/07/21 16:34 05/07/21 16:53 05/07/21 16:57 Temperature 98.9 F Temperature Source Oral Pulse Rate 82 81 Respiratory Rate 16 Blood Pressure 173/95 H 189/75 H Blood Pressure Mean 121 Pulse Ox 98 98 Oxygen Delivery Method Room Air Room Air 05/07/21 17:43 05/07/21 19:44 05/07/21 21:12 Temperature Temperature Source Pulse Rate 64 89 77 Respiratory Rate 17 18 18 Blood Pressure 149/77 H 149/75 H 96/42 L Blood Pressure Mean 101 99 60 Pulse Ox 98 95 96 Oxygen Delivery Method Room Air Room Air Room Air Positive well nourished and well developed General Appearance ED: well developed and NAD HEENT Reports TM's clear and moist mucous membranes normocephalic and atraumatic; Negative for trauma or tenderness Tympanic Membrane ED: Yes TM's clear Eyes PERRL and EOMs intact bilaterally General Eye ED: Negative for pale conjunctiva or scleral icterus Neck no lymphadenopathy, supple and no JVD General: Negative for tenderness Chest Wall inspection of chest normal and palpation of chest normal Chest: Negative for tenderness Resp normal respiratory effort and clear to auscultation bilaterally Effort and Inspection: Negative for respiratory distress or pain with movement Auscultation: Negative for rhonchi, wheezes or diminished lung sounds Cardio regular rate, regular rhythm, S1 normal heart sound, S2 normal heart sound and no murmurs Peripheral Pulses: pulses 2+ throughout GI non-distended and no masses GI Narrative: Patient has diffuse tenderness palpation over the right upper quadrant and epigastric region. There is no rebound, rigidity, or peritoneal signs. Back/Spine no CVA tenderness and no thoracic nor lumbar tenderness Extremity normal to inspection General Extremety ED: Negative for edema General Extremity: Negative for edema Neuro oriented x3, CN's II-XII intact bilaterally, no sensory deficits noted and gait normal Sensorium / Orientation: awake, alert, oriented to person, oriented to place and oriented to time Motor Exam: strength 5/5 throughout and strength abnormal Psych mental status grossly normal Skin no rashes or lesions noted and no wounds Heart Score History: Moderately Suspicious ECG: Nonspecific Repolarization Age: >/= 65 years Risk Factors: >/= 3 Risk Factors or History of CAD Troponin: </= Normal Limit Score: 6 MDM MDM MDM Narrative Medical decision making narrative: IV line established on arrival. Patient had an inch of Nitropaste placed to the anterior chest wall. Patient has had multiple visits for chest pain and has a care plan for no narcotics therefore none were given. Her initial troponin was normal and her second troponin was normal but the high-sensitivity troponin did go up by more than 7 units from - . Patient was given tramadol for her chronic back pain. Case discussed with hospitalist and supervisor boat outfitting on-call. Patient will be admitted for cardiac rule out. She did have a heart catheterization in September 2020 that showed patent stents. Lab Data Attestation: I reviewed the patient's lab results. Labs: Laboratory Results - last 24 hr 05/07/21 05/07/21 05/07/21 17:00 17:00 17:00 WBC 7.0 RBC 4.07 L Hgb 11.8 L Hct 37.1 MCV 91.2 MCH 29.0 MCHC 31.8 L RDW Std Deviation 55.7 H RDW Coeff of Yeimi 16.6 H Plt Count 256 MPV 9.2 Immature Gran % (Auto) 0.400 Neut % (Auto) 62.5 Lymph % (Auto) 21.3 Wilkinson % (Auto) 9.9 Eos % (Auto) 4.5 Baso % (Auto) 1.4 H Absolute Neuts (auto) 4.4 Absolute Lymphs (auto) 1.50 Nucleated RBC % 0 Sodium 134 L Potassium 5.5 H Chloride 104 Carbon Dioxide 25.0 Anion Gap 5 BUN 22 H Creatinine 0.83 Estim Creat Clear Calc 59.99 Est GFR (MDRD) Af Amer 89 Est GFR (MDRD) Non-Af 73 BUN/Creatinine Ratio 26.5 H Glucose 259 H Calcium 10.1 Total Bilirubin 0.30 Direct Bilirubin 0.07 AST 31 ALT 17 Alkaline Phosphatase 97 Troponin I High Sens 11 Total Protein 6.6 Albumin 3.1 L Globulin 3.5 Lipase 104 05/07/21 19:40 WBC RBC Hgb Hct MCV MCH MCHC RDW Std Deviation RDW Coeff of Yeimi Plt Count MPV Immature Gran % (Auto) Neut % (Auto) Lymph % (Auto) Wilkinson % (Auto) Eos % (Auto) Baso % (Auto) Absolute Neuts (auto) Absolute Lymphs (auto) Nucleated RBC % Sodium Potassium Chloride Carbon Dioxide Anion Gap BUN Creatinine Estim Creat Clear Calc Est GFR (MDRD) Af Amer Est GFR (MDRD) Non-Af BUN/Creatinine Ratio Glucose Calcium Total Bilirubin Direct Bilirubin AST ALT Alkaline Phosphatase Troponin I High Sens 19 Total Protein Albumin Globulin Lipase Radiography Chest X-Ray - ED: 1 View Diagnostic Testing: Clinical Impression(s) from Imaging Studies Chest X-Ray 05/07/21 17:10 IMPRESSION: Normal x-ray examination of the chest. Electronically Signed: Armando Taylor MD at 17:19 EST Tel , Service support , 1 view chest x-ray obtained interpreted by myself as no acute disease process. EKG Initial EKG: Attestation: I personally reviewed and interpreted this EKG as follows: Comments: Sinus rhythm with a ventricular rate of 81 bpm with old inferior infarct and old anterior septal infarct Prior EKG tracings: available for review Prior: Unchanged Discharge Plan Triage Chief Complaint: Chest Pain ED Provider: Artemio Leal Dx/Rx/DC Orders Clinical Impression: Chest pain Prescriptions: No Action cholecalciferol (vitamin D3) 25 mcg (1,000 unit) capsule 50 mcg PO DAILY RF: 0 isosorbide mononitrate 30 mg tablet extended release 24 hr 30 mg PO BID Qty: 60 RF: 11 donepezil [Aricept] 10 mg tablet 20 mg PO DAILY Qty: 180 RF: 1 calcium carbonate 600 mg calcium (1,500 mg) tablet 600 mg PO BID Qty: 180 RF: 1 Prolia 60 mg/mL syringe 60 mg subcut [id number] Qty: 1 RF: 1 ropinirole 1 mg tablet 1 mg PO BID Qty: 180 RF: 1 tramadol 50 mg tablet 50 mg PO Q12H PRN (Reason: pain) Qty: 14 RF: 0 tizanidine 2 mg tablet 2 mg PO QHS PRN (Reason: muscle spasticity) Qty: 30 RF: 0 nitroglycerin 0.4 mg tablet, sublingual 0.4 mg SL Q5-15M Qty: 25 RF: 3 albuterol sulfate 1 INHALER inhaler 2 puff INHALATION Q6H PRN PRN (Reason: Sob &/Or Wheezing) RF: 0 teriflunomide 14 mg tablet 14 mg PO DAILY RF: 0 modafinil 200 MG tablet 200 mg PO DAILY RF: 0 acetaminophen 500 MG tablet 1,000 mg PO TID PRN (Reason: pain -02/03) Qty: 1 RF: 0 ascorbic acid (vitamin C) 500 MG tablet,chewable 500 mg PO DAILY Qty: 30 RF: 0 acidophilus-pectin, citrus 100 million cell-10 mg Capsule 1 cap PO DAILY RF: 0 diclofenac potassium 50 mg tablet 50 mg PO BID Qty: 20 RF: 0 phenazopyridine [Pyridium] 200 MG tablet 200 mg PO TID Qty: 6 RF: 0 nitrofurantoin monohyd/m-cryst [Macrobid] 100 mg capsule 100 mg PO Q12H 5 Days Qty: 10 RF: 0 ondansetron 4 mg tablet,disintegrating 4 mg PO Q8H PRN (Reason: nausea and vomiting) Qty: 10 RF: 0 (DME) Accu-Chek Ada Plus test strp Strip See Rx Instructions .ROUTE .MEDSUPPLY Qty: 100 RF: 3 atorvastatin 40 mg tablet 40 mg PO DAILY Qty: 30 RF: 11 conj estrog-medroxyprogest raquel 0.625-2.5 mg tablet 1 tab PO DAILY Qty: 28 RF: 0 potassium chloride 20 mEq tablet extended release 20 meq PO DAILY Qty: 90 RF: 0 carvedilol 25 mg tablet 25 mg PO BID Qty: 180 RF: 3 duloxetine [Cymbalta] 30 mg capsule,delayed release(DR/EC) 30 mg PO BID Qty: 60 RF: 2 ondansetron 8 mg tablet,disintegrating 8 mg PO Q12H PRN (Reason: nausea and vomiting) Qty: 30 RF: 1 lisinopril 20 mg tablet 20 mg PO BID Qty: 180 RF: 3 dicyclomine 20 mg tablet 20 mg PO BID PRN (Reason: abdominal discomfort) Qty: 180 RF: 2 amlodipine [Norvasc] 2.5 mg tablet 2.5 mg PO DAILY Qty: 90 RF: 3 Eliquis 5 mg tablet 5 mg PO BID Qty: 180 RF: 3 pioglitazone 30 mg tablet 30 mg PO DAILY Qty: 30 RF: 3 glimepiride 4 mg tablet 4 mg PO BID Qty: 60 RF: 3 hydroxyzine HCl 50 mg tablet 50 mg PO TID Qty: 90 RF: 1 pantoprazole 40 mg tablet,delayed release (DR/EC) 40 mg PO DAILY Qty: 30 RF: 3 sucralfate 1 gram tablet 1 g PO 4X/DAY Qty: 120 RF: 1 Primary Care Provider: Tom Sherman Referrals: Tom Sherman MD [Primary Care Provider] - Disposition Disposition: Acute Care Hospital [facility]
--- NOTE | 2021-05-07 16:46 | CM.ED ---
PRAVIN Note Referral Reason: Care Plan Referral Source: Case Find SW updated MD that patient has a care plan. Mary REYES
[2021-05-07] MEDS: Nitroglycerin Oint 1 INCH PACKET TD (16:57)
[2021-05-07] MEDS: 0.9% Normal Saline 1,000 ML 150 ML IV (17:02)
--- NOTE | 2021-05-07 17:09 | CM.ED ---
SW Note Referral Source: Case Find Referral Reason: Care Plan SW and ED CM Stephanie met with patient. Patient said I called my doctor before I came in. Patient reports that she has been having chest pain beginning at 2:30pm. Patient stated that if I wanted drugs I would go to [facility]. Patient said who came up with the care plan? and psychiatric social worker supervisor explained the process. Patient said that the Senior outreach provider came to her house but did not stay long as she was in a hurry but plans to call patient. SW asked about in home services. Patient said that her nurse had allegations against her and now the home health RN and supervisor product inspection must come to her house. Patient said that her home health aide gave 30 day notice. SW asked if there would be anything to help patient and she said nitro. SW asked what patient needs in the house and patient said new nurse and RN. Patient said if this doesn't work will the MD give me pain medicine. SW noted that pain medication can only be given for verifiable and acute pain. Mary REYES
--- NOTE | 2021-05-07 17:10 | RAD_ITS ---
STUDY: X-RAY CHEST REASON FOR EXAM: Female, 65 years old. chest pain TECHNIQUE: Single AP portable view of the chest. COMPARISON: 04/19/2021 FINDINGS: The lungs are clear and expanded. There is no demonstrated pleural abnormality. Normal size heart. Normal mediastinum and sara. Normal visualized pulmonary arteries. Normal visualized aortic arch and descending thoracic aorta. Normal visualized thoracic spine. Normal visualized ribs, clavicles, and shoulders. There is no demonstrated abnormality of the visualized soft tissue structures of the upper abdomen. RAD/Chest 1 View (Portable) IMPRESSION: Normal x-ray examination of the chest. Electronically Signed: Armando Taylor MD at 17:19 EST Tel , Service support ,
[2021-05-07 17:14] LABS: Absolute Neutrophil Count 4.4 X10^3/uL (2.0-7.7); Basophil% 1.4 % (0-1); Eosinophil# 0.32 X10^3/uL; Eosinophils% 4.5 % (0-5); Hematocrit 37.1 % (37-47); Hemoglobin 11.8 g/dL (12.0-15.0); Lymphocyte % 21.3 % (19-41); Mean Corp Hgb Conc 31.8 g/dL (32-36); Mean Corpuscular Volume 91.2 fL (81-99); Mean Platelet Vol. 9.2 fl (6.2-12.0); Monocyte% 9.9 % (0-10); NRBC Flagged by Analyzer 0 % (0-5); Neutrophil # 4.39 X10^3/uL (2.7-7.7); Neutrophil % 62.5 % (47-70); Platelet Count 256 K/mm3 (150-450); RBC Distribution Width CV 16.6 % (11.6-14.6); RBC Distribution Width SD 55.7 fl (35.1-43.9); Red Blood Count 4.07 M/mm3 (4.2-5.4)
[2021-05-07] MEDS: Ondansetron 4 MG/2 ML Vial IV (17:41)
[2021-05-07 17:52] LABS: AST(SGOT) 31 U/L (15-37); Alanine Aminotransfer ALT/SGPT 17 U/L (13-56); Albumin, Serum 3.1 g/dL (3.2-5.0); Alkaline Phosphatase 97 U/L (45-117); Anion Gap 5 (5-15); BUN 22 mg/dL (7-18); BUN/Creat Ratio 26.5 RATIO (10-20); Bilirubin, Direct 0.07 mg/dL (0.00-0.30); Calcium,Total 10.1 mg/dL (8.5-10.1); Chloride 104 mmol/L (98-107); Creatinine, Serum 0.83 mg/dL (0.55-1.02); EST Glomerular Filtration Rate 73 mL/min (>60); Est Glom Filt Rate - Afr Amer 89 mL/min (>60); Estimated Creatinine Clearance 59.99 ml/min; Globulin 3.5 g/dL (2.2-4.2); Glucose 259 mg/dL (74-106); Lipase 104 U/L (73-393); Potassium 5.5 mmol/L (3.5-5.1); Protein, Total 6.6 g/dL (6.4-8.2); Sodium Level 134 mmol/L (136-145); Troponin-I HS 11 pg/mL (3.0-54.0)
[2021-05-07] MEDS: Acetaminophen 500 MG Tablet 1000 MG PO (18:01)
[2021-05-07 20:13] LABS: Troponin-I HS 19 pg/mL (3.0-54.0)
--- NOTE | 2021-05-07 21:38 | PCM.HP.STD ---
HPI - General General Date of Admission: 05/07/21 Date of Service: 05/07/21 Chief Complaint: Chest pain HPI Narrative The patient is a 65 y/o F w/ PMHx: Hx VTE, Chronic normocytic anemia, Obesity, Chronic COPD w/ ongoing tobacco use, HTN, HLD, Hx mural thrombus w/ Acute OH STEMI/CAD, Takotsubo syndrome/Ischemic Cardiomyopathy, IBS with diarrhea, Diabetes mellitus type II, Anxiety and Depression, Multiple Sclerosis, BRYAN, PAF, RLS, Chronic back pain/DDD, most recent stress test 08/2020 negative and follow-up 09/2020 catheterization with patent stents secondary to ongoing chest pain with chronic chest pain ongoing and documented in recent cardiology notes who now re-presents to the [facility] ED on 05/07/2021 with recurrent similar chest pain, midsternal with radiation to the left upper extremity described as an achiness with mild nausea with no dyspnea or diaphoresis starting prior to ED presentation rated approximately 6 out of 10 in severity at initial onset, currently resolved upon evaluation with NG paste applied per ED physician. She was recently out of town in [place] visiting her sister for 2 weeks. Work-up in the ED included T98.9, heart rate 82, BP initially 173/95 however following nitroglycerin paste placement BP did drop to 96/42, respiratory rate 16, 98% on room air, CBC with WC 7, hemoglobin 11.8, platelet 256 without marked shift, BMP with sodium 134, potassium 5.5 however is moderately hemolyzed, BUN/creatinine 22/0.3, glucose 259, high-sensitivity cardiac troponin initially 11 with repeat 19, EKG was sinus rhythm with nonspecific changes similar to prior with no acute evidence of ischemia, chest x-ray with no acute cardiopulmonary findings. In the ED patient ministered tramadol, Zofran, Tylenol, normal saline and nitroglycerin 1 inch ointment placed. [facility] Medical History Anxiety Apical mural thrombus with acute OH Atherosclerotic heart disease of [place] coronary artery without angina pectoris Cervical spinal stenosis Chronic anticoagulation Chronic back pain Chronic systolic (congestive) heart failure Closed right tibial fracture COPD (chronic obstructive pulmonary disease) Diabetes mellitus type 2 in nonobese Essential (primary) hypertension Flank pain Fracture of distal end of right tibia Hematemesis Hiatal hernia History of peptic ulcer disease History of ST elevation myocardial infarction (STEMI) HTN (hypertension) Hyperglycemia due to type 2 diabetes mellitus IBS (irritable bowel syndrome) Irritable bowel syndrome with diarrhea Ischemic cardiomyopathy Left ventricular hypertrophy Major depression Multiple sclerosis Nicotine abuse Nondisplaced pilon fracture of right tibia, initial encounter for closed fracture BRYAN (obstructive sleep apnea) Osteoporosis Pain of right lower extremity Paroxysmal atrial fibrillation RLS (restless legs syndrome) Suicidal ideation Tachycardia Takotsubo syndrome Vitamin B12 deficiency Home Medications albuterol sulfate 2 puff INHALATION Q6H PRN PRN 10/23/17 [History Last Taken 06/08/19] teriflunomide 14 mg PO DAILY 09/20/19 [History Last Taken 08/14/20 09:00] modafinil 200 mg PO DAILY 12/12/19 [History Last Taken 08/14/20 09:00] acetaminophen 1,000 mg PO TID PRN #1 tablet 07/29/20 [Rx Last Taken Unknown] blood sugar diagnostic #100 each 08/10/20 [Rx Last Taken Unknown] ascorbic acid (vitamin C) 500 mg PO DAILY #30 tab.chew 08/17/20 [Rx Last Taken Unknown] atorvastatin 40 mg tablet 40 mg PO DAILY #30 tab 09/18/20 [Rx Last Taken Unknown] cholecalciferol (vitamin D3) 25 mcg (1,000 unit) capsule 50 mcg PO DAILY cap 09/18/20 [History Last Taken Unknown] acidophilus-pectin, citrus 1 cap PO DAILY 09/23/20 [History Last Taken Unknown] donepezil 10 mg tablet 20 mg PO DAILY #180 tab 10/02/20 [Rx Last Taken Unknown] isosorbide mononitrate 30 mg tablet,extended release 24 hr 30 mg PO BID #60 tab 10/08/20 [Rx Last Taken Unknown] diclofenac potassium 50 mg PO BID #20 tab 11/12/20 [Rx Last Taken Unknown] calcium carbonate 600 mg calcium (1,500 mg) tablet 600 mg PO BID #180 tab 12/25/20 [Rx Last Taken Unknown] denosumab 60 mg/mL subcutaneous syringe 60 mg SUBCUT [id number] #1 ml 12/25/20 [Rx Last Taken Unknown] conj estrogen-medroxyprogesterone 0.625 mg-2.5 mg tablet 1 tab PO DAILY #28 tab 01/11/21 [Rx Last Taken Unknown] potassium chloride 20 mEq tablet,extended release 20 meq PO DAILY #90 tab 01/15/21 [Rx Last Taken Unknown] ropinirole 1 mg tablet 1 mg PO BID #180 tab 01/30/21 [Rx Last Taken Unknown] carvedilol 25 mg tablet 25 mg PO BID #180 tab 02/05/21 [Rx Last Taken Unknown] duloxetine 30 mg capsule,delayed release 30 mg PO BID #60 cap 02/11/21 [Rx Last Taken Unknown] ondansetron 8 mg disintegrating tablet 8 mg PO Q12H PRN #30 tab 02/28/21 [Rx Last Taken Unknown] lisinopril 20 mg tablet 20 mg PO BID #180 tab 04/02/21 [Rx Last Taken Unknown] tizanidine 2 mg tablet 2 mg PO QHS PRN #30 tab 04/04/21 [Rx Last Taken Unknown] tramadol 50 mg tablet 50 mg PO Q12H PRN #14 tab 04/04/21 [Rx Last Taken Unknown] nitrofurantoin monohyd/m-cryst [Macrobid] 100 mg PO Q12H 5 Days #10 cap 04/07/21 [Rx Last Taken Unknown] phenazopyridine [Pyridium] 200 mg PO TID #6 tab 04/07/21 [Rx Last Taken Unknown] nitroglycerin 0.4 mg sublingual tablet 0.4 mg SL Q5-15M #25 tab 04/10/21 [Rx Last Taken Unknown] dicyclomine 20 mg tablet 20 mg PO BID PRN #180 tablet 04/15/21 [Rx Last Taken Unknown] amlodipine 2.5 mg tablet 2.5 mg PO DAILY #90 tab 04/22/21 [Rx Last Taken Unknown] apixaban 5 mg tablet 5 mg PO BID #180 tab 04/22/21 [Rx Last Taken Unknown] glimepiride 4 mg tablet 4 mg PO BID #60 tab 04/23/21 [Rx Last Taken Unknown] hydroxyzine HCl 50 mg tablet 50 mg PO TID #90 tab 04/23/21 [Rx Last Taken Unknown] pantoprazole 40 mg tablet,delayed release 40 mg PO DAILY #30 tablet 04/23/21 [Rx Last Taken Unknown] pioglitazone 30 mg tablet 30 mg PO DAILY #30 tab 04/23/21 [Rx Last Taken Unknown] ondansetron 4 mg PO Q8H PRN #10 tab 04/24/21 [Rx Last Taken Unknown] sucralfate 1 gram tablet 1 g PO 4X/DAY #120 tablet 04/30/21 [Rx Last Taken Unknown] Allergy/AdvReac Type Severity Reaction Status Date / Time indomethacin [From Indocin] Allergy Hives Verified 04/19/21 07:58 indomethacin sodium Allergy Hives Verified 04/19/21 07:58 [From Indocin] iodine Allergy Hives Verified 04/19/21 07:58 propoxyphene napsylate Allergy Out of Verified 04/19/21 07:58 [From Darvocet-N] control aripiprazole [From Abilify] AdvReac Other Verified 04/19/21 07:58 aspirin AdvReac Upset Verified 04/19/21 07:58 Stomach clindamycin AdvReac Nausea Verified 04/19/21 07:58 metformin AdvReac Other Verified 04/19/21 07:58 sumatriptan [From Imitrex] AdvReac Vomiting Verified 04/19/21 07:58 Family History Father Cancer Lung cancer Mother Cancer Pancreatic cancer Surgical History History of amputation of left great toe History of back surgery History of cervical discectomy History of coronary artery stent placement (04/08/16) History of endoscopy History of left heart catheterization (09/25/20) History of left knee surgery History of loop recorder (06/2014) History of tonsillectomy and adenoidectomy Social History household members: none Smoking Status: Current every day smoker tobacco type: cigarettes alcohol intake: never substance use type: does not use caffeine: Yes Type: coffee Number of servings: 1 what type of physical activity do you participate in: none and other details: Physical Therapy ROS ROS Narrative Admission Review of Systems: CONSTITUTIONAL: No weight loss, fever, chills, + weakness or fatigue. HEENT: Eyes: No visual loss, blurred vision, double vision or yellow sclerae. Ears, Nose, Throat: No hearing loss, sneezing, congestion, runny nose or sore throat. SKIN: + chronic picking with facial picked regions. CARDIOVASCULAR: + chest pain, chest pressure or chest discomfort, No palpitations, edema, orthopnea, syncopal events. RESPIRATORY: No shortness of breath, cough or sputum, wheezing, hemoptysis. GASTROINTESTINAL: + Nausea, No vomiting or diarrhea, abdominal pain, melena, BRBPR. GENITOURINARY: No dysuria, frequency, urgency or retention. NEUROLOGICAL: No headache, dizziness, syncope, paralysis, ataxia, numbness or tingling in the extremities, focal weakness, change in bowel or bladder control, seizure. MUSCULOSKELETAL:+ muscle, back pain, joint pain or stiffness. HEMATOLOGIC: anemia, bleeding or bruising. LYMPHATICS: No enlarged nodes. No history of splenectomy. PSYCHIATRIC:+ history of depression or anxiety. ENDOCRINOLOGIC: No reports of sweating, cold or heat intolerance. No polyuria or polydipsia. ALLERGIES: No history of asthma, hives, eczema or rhinitis. Vital Signs Vital Signs Vital Signs: 05/07/21 16:34 05/07/21 16:53 05/07/21 16:57 Temperature 98.9 F Temperature Source Oral Pulse Rate 82 81 Respiratory Rate 16 Blood Pressure 173/95 H 189/75 H Blood Pressure Mean 121 Pulse Ox 98 98 Oxygen Delivery Method Room Air Room Air 05/07/21 17:43 05/07/21 19:44 05/07/21 21:12 Temperature Temperature Source Pulse Rate 64 89 77 Respiratory Rate 17 18 18 Blood Pressure 149/77 H 149/75 H 96/42 L Blood Pressure Mean 101 99 60 Pulse Ox 98 95 96 Oxygen Delivery Method Room Air Room Air Room Air Weight Weight: 172 lb 9.951 oz Body Mass Index (BMI) 28.7 Physical Exam Narrative Physical Examination: General: awake, alert, oriented x 3 and cooperative, seated upright in the ED bed in no apparent distress, chest pain resolved. Skin: normal color, normal turgor, no icterus, no cyanosis. HEENT: AT/NC, EOMI, PERRLA, MMM, no carotid bruits or JVD noted. Lungs: Diminished, greater bases, moderate effort, no rales, ronchi or wheezing. Heart: Regular rate and rhythm; no gallop, rub audible. Abdomen: soft, obese, NTTP, ND, distant normal BS, no obvious evidence of HSM. Extremities: no cyanosis, clubbing, or edema. Neurological: patient awake, alert, oriented as noted, cognitive function intact; pupils equally reactive to light and accommodation, cranial nerves II-XII grossly normal, moving all 4 extremities, no focal deficits, strength mildly globally decreased secondary to acute presentation. Psychiatric: affect appears mildly fatigued otherwise normal, chest pain resolved, no acute evidence of depressive or anxiety feelings. Results Lab / Micro Data Result Diagrams: 05/07/21 17:00 05/07/21 17:00 Labs: Laboratory Results - last 24 hr 05/07/21 17:00: Total Bilirubin 0.30, Direct Bilirubin 0.07, AST 31, ALT 17, Alkaline Phosphatase 97, Total Protein 6.6, Albumin 3.1 L, Globulin 3.5 05/07/21 17:00: WBC 7.0, RBC 4.07 L, Hgb 11.8 L, Hct 37.1, MCV 91.2, MCH 29.0, MCHC 31.8 L, RDW Std Deviation 55.7 H, RDW Coeff of [place] 16.6 H, Plt Count 256, MPV 9.2, Immature Gran % (Auto) 0.400, Neut % (Auto) 62.5, Lymph % (Auto) 21.3, [place] % (Auto) 9.9, Eos % (Auto) 4.5, Baso % (Auto) 1.4 H, Absolute Neuts (auto) 4.4, Absolute Lymphs (auto) 1.50, Nucleated RBC % 0 05/07/21 17:00: Sodium 134 L, Potassium 5.5 H, Chloride 104, Carbon Dioxide 25.0, Anion Gap 5, BUN 22 H, Creatinine 0.83, Estim Creat Clear Calc 59.99, Est GFR (MDRD) Af Amer 89, Est GFR (MDRD) Non-Af 73, BUN/Creatinine Ratio 26.5 H, Glucose 259 H, Calcium 10.1, Troponin I High Sens 11, Lipase 104 05/07/21 19:40: Troponin I High Sens 19 Radiology Impression Chest X-Ray 05/07/21 17:10 IMPRESSION: Normal x-ray examination of the chest. Electronically Signed: Armando Taylor MD at 17:19 EST Tel , Service support , Assessment & Plan Assessment/Plan (1) Chest pain: QUALIFIERS: Chest pain type: unspecified Qualified Code(s): R07.9 - Chest pain, unspecified PLAN: The patient is a 65 y/o F w/ PMHx: Hx VTE, Chronic normocytic anemia, Obesity, Chronic COPD w/ ongoing tobacco use, HTN, HLD, Hx mural thrombus w/ Acute [place] STEMI/CAD, Takotsubo syndrome/Ischemic Cardiomyopathy, IBS with diarrhea, Diabetes mellitus type II, Anxiety and Depression, Multiple Sclerosis, BRYAN, PAF, RLS, Chronic back pain/DDD, most recent stress test 08/2020 negative and follow-up 09/2020 catheterization with patent stents secondary to ongoing chest pain with chronic chest pain ongoing and documented in recent cardiology notes who now re-presents to the [facility] ED on 05/07/2021 with recurrent similar chest pain, midsternal with radiation to the left upper extremity described as an achiness with mild nausea. #1. Chest Pain: EKG in ED sinus rhythm with sinus rhythm with nonspecific changes similar to prior no acute evidence of ischemia, CXR w/ no acute cardiopulmonary findings, initial trop event with repeat delta 19 which patient has been similar to prior. Will admit to PCU, place on a monitored bed to assure no acute myocardial infarction with serial cardiac enzymes and EKGs. Per cardiology recommendation we will continue enzyme trending if no concerning changes we will plan a.m. cardiac stress testing. Magnesium level requested. ASA, NG, morphine. #2. Recent Acute Apical Mural Thrombus, Recurrent: Patient with history of prior mural thrombus with VTE history, recent visit with family with ED visit for chest discomfort with CTA at that time demonstrating a left apical filling defect concerning for thrombus with follow-up echocardiogram demonstrating EF 54% with severe hypokinesis of the LV apex with evidence of a small mural thrombus with cardiology consultation at that time and initiation of apixaban. We will continue patient apixaban regimen #3. CAD, history of mural thrombus with history of STEMI w/ PCI: Status post prior STEMI, continue aspirin, Plavix, Coreg, lisinopril, statin therapy. #4. PAF: EKG with SR without acute evidence of ischemia, continue coreg, continue eliquis. #5. Hypertension: Continue home regimen including Coreg, isosorbide, lisinopril with hold parameters as needed, PRN hydralazine. #6. Hyperlipidemia: Continue home statin regimen. #7. Takotsubo syndrome/ischemic cardiomyopathy/Chronic Systolic CHF: Continue aspirin, eliquis, Coreg, isosorbide, lisinopril, statin home regimen. #8. Diabetes mellitus type II: Hold oral home regimen, ADA diet until n.p.o. status, accu checks w/ ISS. #9. Chronic normocytic anemia/Fe deficiency anemia: Admission hemoglobin 11.8, baseline appears more recently -, continue to trend, continue Fe supplementation. #10. Anxiety and depression: Continue home duloxetine as well as trazodone nightly regimen. #11. Overweight: Weight loss and lifestyle changes encouraged. #12. Restless leg syndrome: Continue patient home Requip regimen. #13. Chronic COPD w/ ongoing tobacco use: Patient not on chronic oxygen nor on chronic inhalers, will have as needed albuterol, encourage head of bed and I-S, encourage tobacco cessation with NR if needed and RT consultation. #14. IBS with chronic diarrhea: Continue home as needed Bentyl regimen. #15. Hx VTE: Patient with history of VTE following OH with intracardiac thrombus, recently restarted on Eliquis therapy secondary to #2 with recurrent apical mural thrombus. #16. GERD: Continue home PPI. #17. BRYAN: BiPAP nightly. #18. Multiple Sclerosis w/ mild cognitive impairment: Continue patient home teriflunomide as well as donepezil regimen, fall precautions, #19. DVT prophylaxis: SCDs, continue home Eliquis regimen. Charges/Coding Visit Charges OBSV E&M: 41545 Initial observation care L3
[2021-05-07] MEDS: traMADol 50 MG Tablet PO (21:39)
[2021-05-07 22:30] LABS: Magnesium 1.8 mg/dL (1.6-2.6)
[2021-05-08 00:09] VITALS: BP 152/74; PULSE 91; RESP 16; O2SAT 96
[2021-05-08] MEDS: Haloperidol Lactate 5 MG/ML Vial IV (00:10)
[2021-05-08 00:51] VITALS: BMI 28.3
--- NOTE | 2021-05-08 00:51 | EKG12_ITS ---
Test Reason : CP ADMIT Blood Pressure : / mmHG Vent. Rate : 072 BPM Atrial Rate : 072 BPM P-R Int : 148 ms QRS Dur : 098 ms QT Int : 396 ms P-R-T Axes : 037 -38 100 degrees QTc Int : 433 ms Normal sinus rhythm Left axis deviation Septal infarct , age undetermined Inferior infarct , age undetermined T wave abnormality, consider anterior ischemia Abnormal ECG When compared with ECG of 07-MAY-2021 16:38, MANUAL COMPARISON REQUIRED, DATA IS UNCONFIRMED Confirmed by JACQUELINE WITT, KASSANDRA ([id number]), film or videotape editor YUNG MUNGUIA ([id number]) on 05/10/2021 8:11:08 AM Referred By: DR LIN Confirmed By:LILLY PHILLIPS MD
[2021-05-08 01:05] VITALS: BP 134/62; PULSE 77; RESP 16; TEMP 36.6; O2SAT 97
[2021-05-08 01:07] VITALS: PULSE 75
[2021-05-08] MEDS: 0.9% Normal Saline 1,000 ML 100 ML IV (01:32)
[2021-05-08 01:46] LABS: Bedside Glucose 137 mg/dL (70-110)
[2021-05-08 02:01] LABS: Troponin-I HS 16 pg/mL (3.0-54.0)
[2021-05-08] MEDS: Pramipexole Di-HCl 0.5 MG Tablet PO ×2 (02:32→08:58)
[2021-05-08] MEDS: Sucralfate 1 GM Tablet PO ×2 (02:32→10:54)
[2021-05-08] MEDS: APIXABAN 5 MG TABLET PO ×2 (02:32→12:30)
[2021-05-08] MEDS: Carvedilol 25 MG Tablet PO ×2 (02:32→08:58)
[2021-05-08] MEDS: Lisinopril 20 MG Tablet PO ×2 (02:32→08:58)
[2021-05-08] MEDS: DULoxetine Hcl 30 MG Capsule PO ×2 (02:32→08:58)
[2021-05-08] MEDS: Isosorbide Mononitrate 30 MG Tablet PO ×2 (02:33→08:58)
[2021-05-08] MEDS: hydrOXYzine PAM 25 MG Capsule 50 MG PO ×2 (02:33→12:31)
--- NOTE | 2021-05-08 03:24 | PCM.RX.CS ---
Consult Pharmacy has been consulted to manage selected antiobiotic: Vancomycin Type of Consult: New start Suspected Infection: Other Prior Doses of Antibiotics Received/Current Regimen: Medications Vancomycin HCl (Vancomycin) 1,000 mg in 200 mls @ 200 mls/hr IV Q12H RANDI Vancomycin HCl 2,000 mg/ (Sodium Chloride) 540 mls @ 250 mls/hr IV X1 ONE Stop: 05/08/21 04:09 Last Admin: 05/08/21 03:08 Dose: 250 mls/hr Documented by: Labs: Sodium 134 mmol/L (136-145) L 05/07/21 17:00 Potassium 5.5 mmol/L (3.5-5.1) H 05/07/21 17:00 Chloride 104 mmol/L (98-107) 05/07/21 17:00 Carbon Dioxide 25.0 mmol/L (21.0-32.0) 05/07/21 17:00 Anion Gap 5 (5-15) 05/07/21 17:00 BUN 22 mg/dL (7-18) H 05/07/21 17:00 Creatinine 0.83 mg/dL (0.55-1.02) 05/07/21 17:00 Est GFR (MDRD) Af Amer 89 mL/min (>60) 05/07/21 17:00 Est GFR (MDRD) Non-Af 73 mL/min (>60) 05/07/21 17:00 BUN/Creatinine Ratio 26.5 RATIO (10-20) H 05/07/21 17:00 Glucose 259 mg/dL (74-106) H 05/07/21 17:00 Weight used for dosin.2 kg Estimated Creatinine Clearance: 60 Goal Trough: 15-20 mcg/mL Pharmacy Plan for Drug Dosing: Pharmacy Service will continue to monitor and adjust dosing as required. Follow-Up Labs: Trough Vancomycin Labs to be done on [date and time ordered]: 05/09/21 @1430
--- NOTE | 2021-05-08 03:25 | PCM.HOSP.N ---
Hospitalist Note Vancomycin ordered in error. Notified nursing staff and it was discontinued. Had just been hung x 60 seconds.
[2021-05-08 03:57] LABS: Absolute Lymphocyte Count 2.07 X10^3/uL (0.83-4.51); Basophil# 0.07 X10^3/uL; Eosinophils% 4.2 % (0-5); Hematocrit 34.6 % (37-47); Hemoglobin 10.6 g/dL (12.0-15.0); Lymphocyte # 2.07 X10^3/ul (0.83-4.51); Lymphocyte % 29.1 % (19-41); Mean Corp Hgb Conc 30.6 g/dL (32-36); Mean Corpuscular Hgb 28.3 pg (27.0-32.0); Mean Corpuscular Volume 92.5 fL (81-99); Mean Platelet Vol. 9.6 fl (6.2-12.0); Monocyte# 0.62 X10^3/uL; Monocyte% 8.7 % (0-10); NRBC Flagged by Analyzer 0 % (0-5); Neutrophil # 4.04 X10^3/uL (2.7-7.7); Neutrophil % 56.7 % (47-70); Platelet Count 223 K/mm3 (150-450); RBC Distribution Width CV 16.6 % (11.6-14.6); RBC Distribution Width SD 56.6 fl (35.1-43.9); Red Blood Count 3.74 M/mm3 (4.2-5.4); White Blood Count 7.1 K/mm3 (4.4-11.0)
[2021-05-08 04:21] LABS: Troponin-I HS 18 pg/mL (3.0-54.0)
--- NOTE | 2021-05-08 05:26 | PCS.PANDOC ---
PANDEMIC DOCUMENTATION INITIATED: Date: 12/10/2020 Time: 190
[2021-05-08 05:34] LABS: Mucous, Urine 0 SEEN /hpf (<or=2+)
[2021-05-08 05:38] LABS: Color, Urine Yellow (Yellow); Glucose, Dipstick Normal (Normal); Ketone-Dipstick Negative (Negative); Leukocyte Esterase-Dipstick 100 /ul (Negative); Nitrite-Dipstick Negative (Negative); Occult Blood-Urine Negative /ul (Negative); Protein-Dipstick 15 mg/dl (Negative); Urine Bilirubin Dipstick Negative (Negative); Urine Clarity Sl. Cloudy (Clear); Urine Urobilinogen Normal (Normal)
[2021-05-08] MEDS: Aspirin E.C. 81 MG Tablet PO (05:45)
[2021-05-08 05:59] LABS: Bacteria 3+ /hpf (None Seen); Red Blood Cells-Urine 0-5 SEEN /hpf (0-5); Squamous Epithelial Cells - UA 0-5 SEEN /hpf (5-10); White Blood Cells 10-25 SEEN /hpf (0-5)
[2021-05-08 06:23] LABS: Amorphous Sediment 1+
[2021-05-08 06:31] LABS: Bedside Glucose 143 mg/dL (70-110)
[2021-05-08 06:39] VITALS: PULSE 68
--- NOTE | 2021-05-08 07:53 | STRESSREP ---
Stress Test Report Date: 05-08-2021 Procedure: Pharmacologic stress nuclear imaging study Indications: Chest pain; CAD; PCI Consent: Per the patient Procedure: The patient underwent pharmacologic (Regadenoson 0.4mg ) evaluation with a peak heart rate of 98 beats per minute (63%predicted maximal heart rate) and a peak blood pressure of 128/64 mmHg. The baseline ECG demonstrated concern of limb lead misplacement with probable normal sinus rhythm. The peak pharmacologic ECG demonstrated no obvious ECG changes. There were no cardiac dysrhythmias pretest, during pharmacologic infusion, or recovery. There was no complaint of chest discomfort during pharmacologic infusion or recovery. The examination was discontinued secondary to completion of protocol. Impression: 1. Pharmacologic (Regadenoson) evaluation 2. Peak pharmacologic ECG with concern of limb lead misplacement with no obvious ECG changes. 3. There were no cardiac dysrhythmias pretest, during pharmacologic infusion, or recovery. 4. Nuclear images pending Myocardial perfusion imaging study: Technique: The patient was injected with 11.3 millicuries of technetium 99m Cardiolite and subsequently rest SPECT Cardiolite nuclear imaging was obtained in the horizontal long, vertical long, and short axis views. The patient underwent pharmacologic (Regadenoson) evaluation with a peak heart rate of 98 beats per minute (63% percent predicted maximal heart rate) and a peak blood pressure of 128/64 mmHg. The patient was injected with 33.6 millicuries of technetium 99m Cardiolite and subsequently stress SPECT Cardiolite nuclear imaging was obtained in the horizontal long, vertical long, and short axis views. A gated Cardiolite study at peak stress was obtained. Interpretation: Rest and stress SPECT Cardiolite nuclear imaging status post realignment, normalization, and attenuation correction demonstrate myocardial perfusion changes compatible with diminished myocardial perfusion/tracer uptake in portions of the mid to distal anterior, distal anteroseptal, and apical segments with post stress myocardial perfusion changes appearing somewhat more prominent in the distal anterior/anteroseptal segments. There is diminished end-systolic thickening and brightening in the aforementioned areas. The gated Cardiolite study demonstrates myocardial thickening and inward wall motion. The reported LVEF is 48%. Impression: 1. Rest and stress SPECT currently nuclear imaging demonstrate myocardial perfusion changes appearing compatible with the effects of a previous myocardial injury/infarction involving portions of the mid to distal anterior, distal anteroseptal, and apical segments with post-rest myocardial perfusion changes appearing compatible with mild pauline-infarct related myocardial ischemia. 2. The gated Cardiolite study reports an LVEF of 48%. This note was generated with [employer] software. It may contain incorrect words, spelling, and punctuation that were not noted in checking the note before signing.
[2021-05-08 08:56] VITALS: BP 119/63; PULSE 74; RESP 18; TEMP 37; O2SAT 94
[2021-05-08] MEDS: Acetaminophen 325 MG Tablet 650 MG PO (08:57)
[2021-05-08] MEDS: Ondansetron 4 MG/2 ML Vial IV (08:58)
[2021-05-08] MEDS: traMADol 50 MG Tablet PO (08:58)
[2021-05-08] MEDS: Donepezil HCl 10 MG Tablet 20 MG PO (08:59)
[2021-05-08] MEDS: Pantoprazole Sodium 40 MG Tablet PO (08:59)
[2021-05-08 09:00] VITALS: O2SAT 94
[2021-05-08] MEDS: Modafinil 200 MG Tablet PO (09:11)
[2021-05-08 09:48] LABS: ALB/GLOB Ratio 0.9 RATIO (0.9-2.4); AST(SGOT) 13 U/L (15-37); Alanine Aminotransfer ALT/SGPT 14 U/L (13-56); Albumin, Serum 2.7 g/dL (3.2-5.0); Alkaline Phosphatase 71 U/L (45-117); Anion Gap 6 (5-15); BUN 17 mg/dL (7-18); BUN/Creat Ratio 29.1 RATIO (10-20); Calcium,Total 8.6 mg/dL (8.5-10.1); Chloride 105 mmol/L (98-107); Cholesterol 110 mg/dL (200); Creatinine, Serum 0.58 mg/dL (0.55-1.02); EST Glomerular Filtration Rate 109 mL/min (>60); Est Glom Filt Rate - Afr Amer 132 mL/min (>60); Globulin 2.9 g/dL (2.2-4.2); Glucose 257 mg/dL (74-106); High Density Lipoprotein 60 mg/dL; Potassium 3.6 mmol/L (3.5-5.1); Protein, Total 5.6 g/dL (6.4-8.2); Sodium Level 136 mmol/L (136-145); Triglycerides 128 mg/dL; Troponin-I HS 15 pg/mL (3.0-54.0); Very Low Density Lipoprotein 26 mg/dL (5-40)
--- NOTE | 2021-05-08 10:48 | PCM.DC ---
Discharge Instructions Diet Discharge Diet: 1800 Calorie Control Diet Activity Discharge Activity: Return to Normal Activity Weight Bearing Status: Full weight bearing Follow Up Care Test Results: Test results from this visit will be discussed in further detail at your follow-up appointment, if applicable. Discharge Plan Admission Admit Date/Time: 05/07/21 21:55 Primary Reason for Your Visit: chest pain Attending Provider: Carlton Fisher Primary Care Provider: Tom Sherman Discharge Orders/Prescriptions Prescriptions: New isosorbide mononitrate 30 mg Tablet Extended Release 24 Hr 60 mg PO BID Qty: 120 RF: 0 tramadol 50 mg Tablet 50 mg PO 4X/DAY PRN PRN (Reason: pain 1-10) Qty: 35 RF: 0 Continued cholecalciferol (vitamin D3) 25 mcg (1,000 unit) capsule 50 mcg PO DAILY RF: 0 donepezil [Aricept] 10 mg tablet 20 mg PO DAILY Qty: 180 RF: 1 calcium carbonate 600 mg calcium (1,500 mg) tablet 600 mg PO BID Qty: 180 RF: 1 Prolia 60 mg/mL syringe 60 mg subcut [id number] Qty: 1 RF: 1 ropinirole 1 mg tablet 1 mg PO BID Qty: 180 RF: 1 tramadol 50 mg tablet 50 mg PO Q12H PRN (Reason: pain) Qty: 14 RF: 0 tizanidine 2 mg tablet 2 mg PO QHS PRN (Reason: muscle spasticity) Qty: 30 RF: 0 nitroglycerin 0.4 mg tablet, sublingual 0.4 mg SL Q5-15M Qty: 25 RF: 3 albuterol sulfate 1 INHALER inhaler 2 puff INHALATION Q6H PRN PRN (Reason: Sob &/Or Wheezing) RF: 0 teriflunomide 14 mg tablet 14 mg PO DAILY RF: 0 modafinil 200 MG tablet 200 mg PO DAILY RF: 0 acetaminophen 500 MG tablet 1,000 mg PO TID PRN (Reason: pain -02/03) Qty: 1 RF: 0 ascorbic acid (vitamin C) 500 MG tablet,chewable 500 mg PO DAILY Qty: 30 RF: 0 acidophilus-pectin, citrus 100 million cell-10 mg Capsule 1 cap PO DAILY RF: 0 diclofenac potassium 50 mg tablet 50 mg PO BID Qty: 20 RF: 0 ondansetron 4 mg tablet,disintegrating 4 mg PO Q8H PRN (Reason: nausea and vomiting) Qty: 10 RF: 0 (DME) Accu-Chek Ada Plus test strp Strip See Rx Instructions .ROUTE .MEDSUPPLY Qty: 100 RF: 3 atorvastatin 40 mg tablet 40 mg PO DAILY Qty: 30 RF: 11 potassium chloride 20 mEq tablet extended release 20 meq PO DAILY Qty: 90 RF: 0 carvedilol 25 mg tablet 25 mg PO BID Qty: 180 RF: 3 lisinopril 20 mg tablet 20 mg PO BID Qty: 180 RF: 3 dicyclomine 20 mg tablet 20 mg PO BID PRN (Reason: abdominal discomfort) Qty: 180 RF: 2 amlodipine [Norvasc] 2.5 mg tablet 2.5 mg PO DAILY Qty: 90 RF: 3 Eliquis 5 mg tablet 5 mg PO BID Qty: 180 RF: 3 pioglitazone 30 mg tablet 30 mg PO DAILY Qty: 30 RF: 3 glimepiride 4 mg tablet 4 mg PO BID Qty: 60 RF: 3 hydroxyzine HCl 50 mg tablet 50 mg PO TID Qty: 90 RF: 1 pantoprazole 40 mg tablet,delayed release (DR/EC) 40 mg PO DAILY Qty: 30 RF: 3 sucralfate 1 gram tablet 1 g PO 4X/DAY Qty: 120 RF: 1 Discontinued isosorbide mononitrate 30 mg tablet extended release 24 hr 30 mg PO BID Qty: 60 RF: 11 No Action duloxetine [Cymbalta] 30 mg capsule,delayed release(DR/EC) 30 mg PO BID Qty: 60 RF: 2 Referrals / Follow Up: Tom Sherman MD [Primary Care Provider] - Elias Butler MD [STAFF PHYSICIAN] - See Referral Note (at the next visit) Disposition Disposition (needs filled in before D/C Order can be placed): Home, Self Care
[2021-05-08] MEDS: Insulin Lispro 100 UNIT/ML INSULN.PEN SC (10:53)
[2021-05-08 11:31] LABS: Bedside Glucose 263 mg/dL (70-110)
--- NOTE | 2021-05-08 12:07 | PHA.DC.MR ---
Addendum entered and electronically signed by Lexie Rocha 05/08/21 12:10: This [facility] spoke to Dr. Fisher regarding duplicate tramadol orders. TORB to D/C old tramadol order. Original Note: Pharmacy Service has performed discharge medication reconciliation for this patient. The patient's discharge medication list was reviewed for discrepancies and discrepancies were resolved. Home Medications albuterol sulfate 2 puff INHALATION Q6H PRN PRN 10/23/17 teriflunomide 14 mg PO DAILY 09/20/19 modafinil 200 mg PO DAILY 12/12/19 acetaminophen 1,000 mg PO TID PRN #1 tablet 07/29/20 blood sugar diagnostic #100 each 08/10/20 ascorbic acid (vitamin C) 500 mg PO DAILY #30 tab.chew 08/17/20 atorvastatin 40 mg tablet 40 mg PO DAILY #30 tab 09/18/20 cholecalciferol (vitamin D3) 25 mcg (1,000 unit) capsule 50 mcg PO DAILY cap 09/18/20 acidophilus-pectin, citrus 1 cap PO DAILY 09/23/20 donepezil 10 mg tablet 20 mg PO DAILY #180 tab 10/02/20 diclofenac potassium 50 mg PO BID #20 tab 11/12/20 calcium carbonate 600 mg calcium (1,500 mg) tablet 600 mg PO BID #180 tab 12/25/20 denosumab 60 mg/mL subcutaneous syringe 60 mg SUBCUT [id number] #1 ml 12/25/20 potassium chloride 20 mEq tablet,extended release 20 meq PO DAILY #90 tab 01/15/21 ropinirole 1 mg tablet 1 mg PO BID #180 tab 01/30/21 carvedilol 25 mg tablet 25 mg PO BID #180 tab 02/05/21 duloxetine 30 mg capsule,delayed release 30 mg PO BID #60 cap 02/11/21 lisinopril 20 mg tablet 20 mg PO BID #180 tab 04/02/21 tizanidine 2 mg tablet 2 mg PO QHS PRN #30 tab 04/04/21 nitroglycerin 0.4 mg sublingual tablet 0.4 mg SL Q5-15M #25 tab 04/10/21 dicyclomine 20 mg tablet 20 mg PO BID PRN #180 tablet 04/15/21 amlodipine 2.5 mg tablet 2.5 mg PO DAILY #90 tab 04/22/21 apixaban 5 mg tablet 5 mg PO BID #180 tab 04/22/21 glimepiride 4 mg tablet 4 mg PO BID #60 tab 04/23/21 hydroxyzine HCl 50 mg tablet 50 mg PO TID #90 tab 04/23/21 pantoprazole 40 mg tablet,delayed release 40 mg PO DAILY #30 tablet 04/23/21 pioglitazone 30 mg tablet 30 mg PO DAILY #30 tab 04/23/21 ondansetron 4 mg PO Q8H PRN #10 tab 04/24/21 sucralfate 1 gram tablet 1 g PO 4X/DAY #120 tablet 04/30/21 isosorbide mononitrate 60 mg PO BID #120 tab 05/08/21 tramadol 50 mg PO 4X/DAY PRN PRN #35 tab 05/08/21
--- NOTE | 2021-05-08 15:21 | PCM.DC.SUM ---
Providers Date of Admission: 05/07/21 Date of Discharge: 05/08/21 Primary Care Physician: Dr. Tom Sherman MD Reason For Visit: chest pain Diagnosis Discharge Diagnosis (1) Chest pain: Status: Acute Code(s): R07.9 - Chest pain, unspecified Qualifiers: Chest pain type: unspecified Qualified Code(s): R07.9 - Chest pain, unspecified Plan: 1. Musculoskeletal chest pain #2 coronary artery disease #3 paroxysmal atrial fibrillation #4 essential hypertension #5 hyperlipidemia #6 type 2 diabetes Medications at Discharge Home Medications albuterol sulfate 2 puff INHALATION Q6H PRN PRN 10/23/17 teriflunomide 14 mg PO DAILY 09/20/19 modafinil 200 mg PO DAILY 12/12/19 acetaminophen 1,000 mg PO TID PRN #1 tablet 07/29/20 blood sugar diagnostic #100 each 08/10/20 ascorbic acid (vitamin C) 500 mg PO DAILY #30 tab.chew 08/17/20 atorvastatin 40 mg tablet 40 mg PO DAILY #30 tab 09/18/20 cholecalciferol (vitamin D3) 25 mcg (1,000 unit) capsule 50 mcg PO DAILY cap 09/18/20 acidophilus-pectin, citrus 1 cap PO DAILY 09/23/20 donepezil 10 mg tablet 20 mg PO DAILY #180 tab 10/02/20 diclofenac potassium 50 mg PO BID #20 tab 11/12/20 calcium carbonate 600 mg calcium (1,500 mg) tablet 600 mg PO BID #180 tab 12/25/20 denosumab 60 mg/mL subcutaneous syringe 60 mg SUBCUT [id number] #1 ml 12/25/20 potassium chloride 20 mEq tablet,extended release 20 meq PO DAILY #90 tab 01/15/21 ropinirole 1 mg tablet 1 mg PO BID #180 tab 01/30/21 carvedilol 25 mg tablet 25 mg PO BID #180 tab 02/05/21 duloxetine 30 mg capsule,delayed release 30 mg PO BID #60 cap 02/11/21 lisinopril 20 mg tablet 20 mg PO BID #180 tab 04/02/21 tizanidine 2 mg tablet 2 mg PO QHS PRN #30 tab 04/04/21 nitroglycerin 0.4 mg sublingual tablet 0.4 mg SL Q5-15M #25 tab 04/10/21 dicyclomine 20 mg tablet 20 mg PO BID PRN #180 tablet 04/15/21 amlodipine 2.5 mg tablet 2.5 mg PO DAILY #90 tab 04/22/21 apixaban 5 mg tablet 5 mg PO BID #180 tab 04/22/21 glimepiride 4 mg tablet 4 mg PO BID #60 tab 04/23/21 hydroxyzine HCl 50 mg tablet 50 mg PO TID #90 tab 04/23/21 pantoprazole 40 mg tablet,delayed release 40 mg PO DAILY #30 tablet 04/23/21 pioglitazone 30 mg tablet 30 mg PO DAILY #30 tab 04/23/21 ondansetron 4 mg PO Q8H PRN #10 tab 04/24/21 sucralfate 1 gram tablet 1 g PO 4X/DAY #120 tablet 04/30/21 isosorbide mononitrate 60 mg PO BID #120 tab 05/08/21 tramadol 50 mg PO 4X/DAY PRN PRN #35 tab 05/08/21 ondansetron 4 mg PO Q6H PRN PRN #15 tab 05/11/21 Hospital Course Operations None Procedures Stress test Summary of Care Provided Minutes Spent on Discharge: 30 Hospital Course: This 65-year-old white female was seen in the emergency room at [facility] with a chief complaint of retrosternal heaviness and pain, patient also complained of pain across her mid back area. She took a nitroglycerin at home which seemed to help with the discomfort. Work-up in the emergency room included labs which showed 2 normal high sensitive troponin readings. Patient's EKG showed no evidence of acute ischemic changes, patient was placed in observation status on PCU and she underwent a pharmacological nuclear stress test that was negative for reversible ischemia. On 05/08/2021, patient was seen and examined: On examination she appeared in good health and spirits, she does not appear to be in any distress. Vital signs as documented. Skin warm and dry and without overt rashes. Neck without JVD, thyroid appears normal, trachea is midline, neck is supple. Lungs clear, normal air movement was noted. Heart exam notable for regular rhythm, normal sounds and absence of murmurs, rubs or gallops. Abdomen unremarkable and without evidence of organomegaly, masses, or abdominal aortic enlargement, bowel sounds are present in all 4 quadrants, no abdominal tenderness was noted. Extremities nonedematous, no cyanosis was noted, no clubbing was noted. Neuro: Cranial nerves II through XII are grossly intact, no focal motor deficits were noted, sensation to light touch and pinprick is intact, motor exam 5/5 throughout. Psych: Patient is alert and oriented x3, she does not appear anxious or depressed, she does not appear agitated. On 05/08/2021, patient was discharged home in stable condition Weight / BMI Weight Weight: 77.2 kg Body Mass Index (BMI) 28.3 ABG / Lab / Microbiology Data Result Diagrams: 05/08/21 03:27 05/08/21 09:15 D/C Instructions Discharge Diet: 1800 Calorie Control Diet Weight Bearing Status: Full weight bearing Meaningful Use Info Meaningful Use Diagnoses (Choose all that apply): None applicable Discharge Plan Admission Admit Date/Time: 05/07/21 21:55 Primary Reason for Your Visit: chest pain Attending Provider: Carlton Fisher Primary Care Provider: Tom Sherman Discharge Orders/Prescriptions Prescriptions: New isosorbide mononitrate 30 mg Tablet Extended Release 24 Hr 60 mg PO BID Qty: 120 RF: 0 tramadol 50 mg Tablet 50 mg PO 4X/DAY PRN PRN (Reason: pain 1-10) Qty: 35 RF: 0 Continued cholecalciferol (vitamin D3) 25 mcg (1,000 unit) capsule 50 mcg PO DAILY RF: 0 donepezil [Aricept] 10 mg tablet 20 mg PO DAILY Qty: 180 RF: 1 calcium carbonate 600 mg calcium (1,500 mg) tablet 600 mg PO BID Qty: 180 RF: 1 Prolia 60 mg/mL syringe 60 mg subcut [id number] Qty: 1 RF: 1 ropinirole 1 mg tablet 1 mg PO BID Qty: 180 RF: 1 tizanidine 2 mg tablet 2 mg PO QHS PRN (Reason: muscle spasticity) Qty: 30 RF: 0 nitroglycerin 0.4 mg tablet, sublingual 0.4 mg SL Q5-15M Qty: 25 RF: 3 albuterol sulfate 1 INHALER inhaler 2 puff INHALATION Q6H PRN PRN (Reason: Sob &/Or Wheezing) RF: 0 teriflunomide 14 mg tablet 14 mg PO DAILY RF: 0 modafinil 200 MG tablet 200 mg PO DAILY RF: 0 acetaminophen 500 MG tablet 1,000 mg PO TID PRN (Reason: pain -02/03) Qty: 1 RF: 0 ascorbic acid (vitamin C) 500 MG tablet,chewable 500 mg PO DAILY Qty: 30 RF: 0 acidophilus-pectin, citrus 100 million cell-10 mg Capsule 1 cap PO DAILY RF: 0 diclofenac potassium 50 mg tablet 50 mg PO BID Qty: 20 RF: 0 ondansetron 4 mg tablet,disintegrating 4 mg PO Q8H PRN (Reason: nausea and vomiting) Qty: 10 RF: 0 (DME) Accu-Chek Ada Plus test strp Strip See Rx Instructions .ROUTE .MEDSUPPLY Qty: 100 RF: 3 atorvastatin 40 mg tablet 40 mg PO DAILY Qty: 30 RF: 11 potassium chloride 20 mEq tablet extended release 20 meq PO DAILY Qty: 90 RF: 0 carvedilol 25 mg tablet 25 mg PO BID Qty: 180 RF: 3 lisinopril 20 mg tablet 20 mg PO BID Qty: 180 RF: 3 dicyclomine 20 mg tablet 20 mg PO BID PRN (Reason: abdominal discomfort) Qty: 180 RF: 2 amlodipine [Norvasc] 2.5 mg tablet 2.5 mg PO DAILY Qty: 90 RF: 3 Eliquis 5 mg tablet 5 mg PO BID Qty: 180 RF: 3 pioglitazone 30 mg tablet 30 mg PO DAILY Qty: 30 RF: 3 glimepiride 4 mg tablet 4 mg PO BID Qty: 60 RF: 3 hydroxyzine HCl 50 mg tablet 50 mg PO TID Qty: 90 RF: 1 pantoprazole 40 mg tablet,delayed release (DR/EC) 40 mg PO DAILY Qty: 30 RF: 3 sucralfate 1 gram tablet 1 g PO 4X/DAY Qty: 120 RF: 1 Discontinued isosorbide mononitrate 30 mg tablet extended release 24 hr 30 mg PO BID Qty: 60 RF: 11 tramadol 50 mg tablet 50 mg PO Q12H PRN (Reason: pain) Qty: 14 RF: 0 No Action ondansetron [ondansetron] 4 MG tablet 4 mg PO Q6H PRN PRN (Reason: Nausea) Qty: 15 RF: 0 duloxetine [Cymbalta] 30 mg capsule,delayed release(DR/EC) 30 mg PO BID Qty: 60 RF: 2 Referrals / Follow Up: Elias Butler MD [STAFF PHYSICIAN] - See Referral Note (at the next visit) Tom Sherman MD [Primary Care Provider] - Disposition Disposition (needs filled in before D/C Order can be placed): Home, Self Care Charges/Coding Visit Charges OBSV E&M: 90481 Observation care discharge
--- NOTE | 2021-05-08 16:23 | CASEMGMT ---
Social Work Pt's patient case coordinator from [facility], Gloria Gudino, left a message to ask about pt. SW called her back and let her know pt was discharged home today. She was already aware, pt had called her. LUPILLO Osorio
== END 2021-05-08 11:19 | disposition home or self-care (01) ==
LOC: ED 21:48 → PCU 22:03
PROVIDERS: Admitting Provider Family Medicine; Emergency Provider Emergency Medicine; PCP Internal Medicine; Visit Provider Internal Medicine
DX: R07.89 Other chest pain (principal); J44.9 Chronic obstructive pulmonary disease, unspecified; I11.0 Hypertensive heart disease with heart failure; I50.22 Chronic systolic (congestive) heart failure; I48.0 Paroxysmal atrial fibrillation; E11.9 Type 2 diabetes mellitus without complications; F32.A Depression, unspecified; F41.9 Anxiety disorder, unspecified; I25.10 Atherosclerotic heart disease of native coronary artery without angina pectoris; G47.33 Obstructive sleep apnea (adult) (pediatric); I25.5 Ischemic cardiomyopathy; G89.29 Other chronic pain; E78.5 Hyperlipidemia, unspecified; Z79.82 Long term (current) use of aspirin; K58.0 Irritable bowel syndrome with diarrhea; Z79.01 Long term (current) use of anticoagulants; Z79.899 Other long term (current) drug therapy; Z79.84 Long term (current) use of oral hypoglycemic drugs; F17.210 Nicotine dependence, cigarettes, uncomplicated
CPT/HCPCS: 36415; 71045; 78452; 80048; 80053; 80061; 80076; 81001; 82962; 83690; 83735; 84484; 85025; 93005; 93017; 96361; 96374; 96375; 96376; 99218; 99251; 99285; 99406; A9500; J7030; J7040; A4216; G0378; G0463; J2405; J2785

== ENCOUNTER 2021-05-11 14:05 | Emergency (ER) | payer MEDICARE, MEDICAID, SELFPAY ==
[2016-07-13 11:45] VITALS: BMI 31.4
[2021-05-11 14:06] VITALS: BP 161/83; PULSE 71; RESP 15; TEMP 36.6; O2SAT 97; BMI 28.3
--- NOTE | 2021-05-11 14:35 | EKG12_ITS ---
Test Reason : CP Blood Pressure : / mmHG Vent. Rate : 068 BPM Atrial Rate : 068 BPM P-R Int : 116 ms QRS Dur : 086 ms QT Int : 428 ms P-R-T Axes : 025 -46 079 degrees QTc Int : 455 ms Normal sinus rhythm Left axis deviation Low voltage QRS Inferior infarct , age undetermined Anterior-Septal AZ, age undetermined, cannot be excluded Abnormal ECG Confirmed by CATHERINE WITT, GRIS ([id number]), material expeditor YUNG MUNGUIA ([id number]) on 05/13/2021 10:50:27 AM Referred By: Confirmed By:GRIS ALEXANDER MD
--- NOTE | 2021-05-11 14:35 | RAD_ITS ---
STUDY: X-RAY CHEST REASON FOR EXAM: Female, 65 years old. chest pain TECHNIQUE: AP COMPARISON: 05/07/2021 FINDINGS: EKG leads project over the chest. The lungs are clear and expanded. There is no demonstrated pleural abnormality. Normal size heart. Normal mediastinum and sara. Normal visualized pulmonary arteries. There is atherosclerotic tortuosity of the aortic arch and descending thoracic aorta. Fusion hardware of the cervical spine. Normal visualized ribs, clavicles, and shoulders. There is no demonstrated abnormality of the visualized soft tissue structures of the upper abdomen. RAD/Chest 1 View (Portable) IMPRESSION: Nonacute portable x-ray examination of the chest. Electronically Signed: Conrad Schwartz MD (Brooks) at 15:24 EST , Service support ,
--- NOTE | 2021-05-11 14:36 | ED.VIS.CHEST ---
HPI History of Present Illness Chief Complaint: Chest Pain Informant: patient Narrative Narrative: 65-year-old female arrives to the emergency department with 6 hours of constant chest pain. Patient states that her blood pressures have been higher than normal at home. Some pressures have been greater than 210/130 she notes a central chest pain that radiates to the left shoulder. Patient had a stress test approximately 3 days ago. She notes a history of CHF, coronary artery disease, diabetes, COPD, hypertension and chronic anticoagulation on apixaban. Patient notes nausea and did have some vomiting today. [facility] Medical History Anxiety Apical mural thrombus with acute CA Atherosclerotic heart disease of [place] coronary artery without angina pectoris Cervical spinal stenosis Chronic anticoagulation Chronic back pain Chronic systolic (congestive) heart failure Closed right tibial fracture COPD (chronic obstructive pulmonary disease) Diabetes mellitus type 2 in nonobese Essential (primary) hypertension Flank pain Fracture of distal end of right tibia Hematemesis Hiatal hernia History of peptic ulcer disease History of ST elevation myocardial infarction (STEMI) HTN (hypertension) Hyperglycemia due to type 2 diabetes mellitus IBS (irritable bowel syndrome) Irritable bowel syndrome with diarrhea Ischemic cardiomyopathy Left ventricular hypertrophy Major depression Multiple sclerosis Nicotine abuse Nondisplaced pilon fracture of right tibia, initial encounter for closed fracture BRYAN (obstructive sleep apnea) Osteoporosis Pain of right lower extremity Paroxysmal atrial fibrillation RLS (restless legs syndrome) Suicidal ideation Tachycardia Takotsubo syndrome Vitamin B12 deficiency Home Medications albuterol sulfate 2 puff INHALATION Q6H PRN PRN 10/23/17 [History Last Taken 06/08/19] teriflunomide 14 mg PO DAILY 09/20/19 [History Last Taken 08/14/20 09:00] modafinil 200 mg PO DAILY 12/12/19 [History Last Taken 08/14/20 09:00] acetaminophen 1,000 mg PO TID PRN #1 tablet 07/29/20 [Rx Last Taken Unknown] blood sugar diagnostic #100 each 08/10/20 [Rx Last Taken Unknown] ascorbic acid (vitamin C) 500 mg PO DAILY #30 tab.chew 08/17/20 [Rx Last Taken Unknown] atorvastatin 40 mg tablet 40 mg PO DAILY #30 tab 09/18/20 [Rx Last Taken Unknown] cholecalciferol (vitamin D3) 25 mcg (1,000 unit) capsule 50 mcg PO DAILY cap 09/18/20 [History Last Taken Unknown] acidophilus-pectin, citrus 1 cap PO DAILY 09/23/20 [History Last Taken Unknown] donepezil 10 mg tablet 20 mg PO DAILY #180 tab 10/02/20 [Rx Last Taken Unknown] diclofenac potassium 50 mg PO BID #20 tab 11/12/20 [Rx Last Taken Unknown] calcium carbonate 600 mg calcium (1,500 mg) tablet 600 mg PO BID #180 tab 12/25/20 [Rx Last Taken Unknown] denosumab 60 mg/mL subcutaneous syringe 60 mg SUBCUT [id number] #1 ml 12/25/20 [Rx Last Taken Unknown] potassium chloride 20 mEq tablet,extended release 20 meq PO DAILY #90 tab 01/15/21 [Rx Last Taken Unknown] ropinirole 1 mg tablet 1 mg PO BID #180 tab 01/30/21 [Rx Last Taken Unknown] carvedilol 25 mg tablet 25 mg PO BID #180 tab 02/05/21 [Rx Last Taken Unknown] duloxetine 30 mg capsule,delayed release 30 mg PO BID #60 cap 02/11/21 [Rx Last Taken Unknown] lisinopril 20 mg tablet 20 mg PO BID #180 tab 04/02/21 [Rx Last Taken Unknown] tizanidine 2 mg tablet 2 mg PO QHS PRN #30 tab 04/04/21 [Rx Last Taken Unknown] nitroglycerin 0.4 mg sublingual tablet 0.4 mg SL Q5-15M #25 tab 04/10/21 [Rx Last Taken Unknown] dicyclomine 20 mg tablet 20 mg PO BID PRN #180 tablet 04/15/21 [Rx Last Taken Unknown] amlodipine 2.5 mg tablet 2.5 mg PO DAILY #90 tab 04/22/21 [Rx Last Taken Unknown] apixaban 5 mg tablet 5 mg PO BID #180 tab 04/22/21 [Rx Last Taken Unknown] glimepiride 4 mg tablet 4 mg PO BID #60 tab 04/23/21 [Rx Last Taken Unknown] hydroxyzine HCl 50 mg tablet 50 mg PO TID #90 tab 04/23/21 [Rx Last Taken Unknown] pantoprazole 40 mg tablet,delayed release 40 mg PO DAILY #30 tablet 04/23/21 [Rx Last Taken Unknown] pioglitazone 30 mg tablet 30 mg PO DAILY #30 tab 04/23/21 [Rx Last Taken Unknown] ondansetron 4 mg PO Q8H PRN #10 tab 04/24/21 [Rx Last Taken Unknown] sucralfate 1 gram tablet 1 g PO 4X/DAY #120 tablet 04/30/21 [Rx Last Taken Unknown] isosorbide mononitrate 60 mg PO BID #120 tab 05/08/21 [Rx Last Taken Unknown] tramadol 50 mg PO 4X/DAY PRN PRN #35 tab 05/08/21 [Rx Last Taken Unknown] ondansetron 4 mg PO Q6H PRN PRN #15 tab 05/11/21 [Rx Last Taken Unknown] Allergy/AdvReac Type Severity Reaction Status Date / Time indomethacin [From Indocin] Allergy Hives Verified 04/19/21 07:58 indomethacin sodium Allergy Hives Verified 04/19/21 07:58 [From Indocin] iodine Allergy Hives Verified 04/19/21 07:58 propoxyphene napsylate Allergy Out of Verified 04/19/21 07:58 [From Darvocet-N] control aripiprazole [From Abilify] AdvReac Other Verified 04/19/21 07:58 aspirin AdvReac Upset Verified 04/19/21 07:58 Stomach clindamycin AdvReac Nausea Verified 04/19/21 07:58 metformin AdvReac Other Verified 04/19/21 07:58 sumatriptan [From Imitrex] AdvReac Vomiting Verified 04/19/21 07:58 Family History Father Cancer Lung cancer Mother Cancer Pancreatic cancer Surgical History History of amputation of left great toe History of back surgery History of cervical discectomy History of coronary artery stent placement (04/08/16) History of endoscopy History of left heart catheterization (09/25/20) History of left knee surgery History of loop recorder (06/2014) History of tonsillectomy and adenoidectomy Social History household members: none Smoking Status: Current every day smoker tobacco type: cigarettes alcohol intake: never substance use type: does not use caffeine: Yes Type: coffee Number of servings: 1 what type of physical activity do you participate in: none and other details: Physical Therapy EXAM Physical Exam Const Vital Signs: 05/11/21 14:06 05/11/21 14:28 Temperature 97.9 F Temperature Source Temporal Pulse Rate 71 Respiratory Rate 15 Respiratory Effort Normal Blood Pressure 161/83 H Blood Pressure Mean 109 Pulse Ox 97 Oxygen Delivery Method Room Air Positive well nourished and well developed General Appearance ED: well developed HEENT Reports TM's clear normocephalic and atraumatic Tympanic Membrane ED: Yes TM's clear Eyes PERRL and EOMs intact bilaterally Neck no lymphadenopathy and supple Chest Wall inspection of chest normal Resp normal respiratory effort Cardio regular rate, regular rhythm and no murmurs GI normal to inspection, nondistended, normoactive bowel sounds and non-tender Palpation: soft Back/Spine no CVA tenderness and normal ROM Extremity normal to inspection General Extremety ED: Negative for edema General Extremity: Negative for edema Neuro oriented x3 and CN's II-XII intact bilaterally Sensorium / Orientation: alert Motor Exam: strength 5/5 throughout Psych mental status grossly normal Mood & Affect: Negative for depressed or tearful Skin no rashes or lesions noted and no wounds Heart Score History: Slightly/Non-Suspicious ECG: Normal Age: >/= 65 years Risk Factors: >/= 3 Risk Factors or History of CAD Troponin: </= Normal Limit Score: 4 MDM MDM MDM Narrative Medical decision making narrative: My interpretation of the chest x-ray is no acute process. Her troponin level is at 12 and this does represent greater than 6 hours of constant symptoms. Patient's blood pressure has not been significantly elevated since she has been here. She has been resting comfortably. In light that she was just admitted he had a negative stress test and has early follow-up in 2 days with her doctor I think is reasonable to be discharged home. I do not think we need to pursue a PE as she has been on her apixaban without missing doses. Lab Data Attestation: I reviewed the patient's lab results. Labs: Laboratory Results - last 24 hr 05/11/21 05/11/21 15:00 15:00 WBC 5.7 RBC 3.69 L Hgb 10.8 L Hct 33.8 L MCV 91.6 MCH 29.3 MCHC 32.0 RDW Std Deviation 54.2 H RDW Coeff of Yeimi 16.2 H Plt Count 198 MPV 10.9 Immature Gran % (Auto) 0.200 Neut % (Auto) 59.7 Lymph % (Auto) 23.6 Johnston % (Auto) 10.0 Eos % (Auto) 5.3 H Baso % (Auto) 1.2 H Absolute Neuts (auto) 3.4 Absolute Lymphs (auto) 1.35 Nucleated RBC % 0 Sodium 133 L Potassium 5.0 Chloride 103 Carbon Dioxide 26.0 Anion Gap 4 L BUN 19 H Creatinine 0.72 Estim Creat Clear Calc 49.80 Est GFR (MDRD) Af Amer 104 Est GFR (MDRD) Non-Af 86 BUN/Creatinine Ratio 26.4 H Glucose 219 H Calcium 9.2 Troponin I High Sens 12 Radiography Diagnostic Testing: Clinical Impression(s) from Imaging Studies Chest X-Ray 05/11/21 14:35 IMPRESSION: Nonacute portable x-ray examination of the chest. Electronically Signed: Conrad Schwartz MD (Brooks) at 15:24 EST , Service support , EKG Initial EKG: Attestation: I personally reviewed and interpreted this EKG as follows: Comments: Normal sinus rhythm with a ventricular rate of 68 bpm Discharge Plan Triage Chief Complaint: Chest Pain ED Provider: Cheko Ortiz Dx/Rx/DC Orders Clinical Impression: Chest pain, Hypertension, Chronic anticoagulation Instructions: ED Chest Pain, Uncertain Cause Prescriptions: New ondansetron [ondansetron] 4 MG tablet 4 mg PO Q6H PRN PRN (Reason: Nausea) Qty: 15 RF: 0 No Action cholecalciferol (vitamin D3) 25 mcg (1,000 unit) capsule 50 mcg PO DAILY RF: 0 donepezil [Aricept] 10 mg tablet 20 mg PO DAILY Qty: 180 RF: 1 calcium carbonate 600 mg calcium (1,500 mg) tablet 600 mg PO BID Qty: 180 RF: 1 Prolia 60 mg/mL syringe 60 mg subcut [id number] Qty: 1 RF: 1 ropinirole 1 mg tablet 1 mg PO BID Qty: 180 RF: 1 tizanidine 2 mg tablet 2 mg PO QHS PRN (Reason: muscle spasticity) Qty: 30 RF: 0 nitroglycerin 0.4 mg tablet, sublingual 0.4 mg SL Q5-15M Qty: 25 RF: 3 albuterol sulfate 1 INHALER inhaler 2 puff INHALATION Q6H PRN PRN (Reason: Sob &/Or Wheezing) RF: 0 teriflunomide 14 mg tablet 14 mg PO DAILY RF: 0 modafinil 200 MG tablet 200 mg PO DAILY RF: 0 acetaminophen 500 MG tablet 1,000 mg PO TID PRN (Reason: pain 1-10) Qty: 1 RF: 0 ascorbic acid (vitamin C) 500 MG tablet,chewable 500 mg PO DAILY Qty: 30 RF: 0 acidophilus-pectin, citrus 100 million cell-10 mg Capsule 1 cap PO DAILY RF: 0 diclofenac potassium 50 mg tablet 50 mg PO BID Qty: 20 RF: 0 ondansetron 4 mg tablet,disintegrating 4 mg PO Q8H PRN (Reason: nausea and vomiting) Qty: 10 RF: 0 isosorbide mononitrate 30 mg Tablet Extended Release 24 Hr 60 mg PO BID Qty: 120 RF: 0 tramadol 50 mg Tablet 50 mg PO 4X/DAY PRN PRN (Reason: pain 1-10) Qty: 35 RF: 0 (DME) Accu-Chek Ada Plus test strp Strip See Rx Instructions .ROUTE .MEDSUPPLY Qty: 100 RF: 3 atorvastatin 40 mg tablet 40 mg PO DAILY Qty: 30 RF: 11 potassium chloride 20 mEq tablet extended release 20 meq PO DAILY Qty: 90 RF: 0 carvedilol 25 mg tablet 25 mg PO BID Qty: 180 RF: 3 duloxetine [Cymbalta] 30 mg capsule,delayed release(DR/EC) 30 mg PO BID Qty: 60 RF: 2 lisinopril 20 mg tablet 20 mg PO BID Qty: 180 RF: 3 dicyclomine 20 mg tablet 20 mg PO BID PRN (Reason: abdominal discomfort) Qty: 180 RF: 2 amlodipine [Norvasc] 2.5 mg tablet 2.5 mg PO DAILY Qty: 90 RF: 3 Eliquis 5 mg tablet 5 mg PO BID Qty: 180 RF: 3 pioglitazone 30 mg tablet 30 mg PO DAILY Qty: 30 RF: 3 glimepiride 4 mg tablet 4 mg PO BID Qty: 60 RF: 3 hydroxyzine HCl 50 mg tablet 50 mg PO TID Qty: 90 RF: 1 pantoprazole 40 mg tablet,delayed release (DR/EC) 40 mg PO DAILY Qty: 30 RF: 3 sucralfate 1 gram tablet 1 g PO 4X/DAY Qty: 120 RF: 1 Primary Care Provider: Tom Sherman Referrals: Tom Sherman MD [Primary Care Provider] - [facility] appointment Disposition Disposition: Home, Self Care
[2021-05-11 15:07] LABS: Absolute Lymphocyte Count 1.35 X10^3/uL (0.83-4.51); Absolute Neutrophil Count 3.4 X10^3/uL (2.0-7.7); Basophil# 0.07 X10^3/uL; Basophil% 1.2 % (0-1); Eosinophils% 5.3 % (0-5); Hematocrit 33.8 % (37-47); Hemoglobin 10.8 g/dL (12.0-15.0); Lymphocyte # 1.35 X10^3/ul (0.83-4.51); Lymphocyte % 23.6 % (19-41); Mean Corpuscular Hgb 29.3 pg (27.0-32.0); Mean Corpuscular Volume 91.6 fL (81-99); Mean Platelet Vol. 10.9 fl (6.2-12.0); Monocyte# 0.57 X10^3/uL; NRBC Flagged by Analyzer 0 % (0-5); Neutrophil # 3.41 X10^3/uL (2.7-7.7); Neutrophil % 59.7 % (47-70); Platelet Count 198 K/mm3 (150-450); RBC Distribution Width CV 16.2 % (11.6-14.6); RBC Distribution Width SD 54.2 fl (35.1-43.9); Red Blood Count 3.69 M/mm3 (4.2-5.4); White Blood Count 5.7 K/mm3 (4.4-11.0)
[2021-05-11] MEDS: Ondansetron 4 MG/2 ML Vial IV (15:07)
[2021-05-11 15:26] LABS: Anion Gap 4 (5-15); BUN 19 mg/dL (7-18); BUN/Creat Ratio 26.4 RATIO (10-20); Calcium,Total 9.2 mg/dL (8.5-10.1); Chloride 103 mmol/L (98-107); Creatinine, Serum 0.72 mg/dL (0.55-1.02); EST Glomerular Filtration Rate 86 mL/min (>60); Est Glom Filt Rate - Afr Amer 104 mL/min (>60); Glucose 219 mg/dL (74-106); Sodium Level 133 mmol/L (136-145); Troponin-I HS 12 pg/mL (3.0-54.0)
[2021-05-11 16:12] VITALS: BP 137/65; PULSE 60; RESP 16; O2SAT 97
== END 2021-05-11 16:13 | disposition home or self-care (01) ==
PROVIDERS: Emergency Provider Emergency Medicine; PCP Internal Medicine; Visit Provider Emergency Medicine
DX: R07.9 Chest pain, unspecified (principal); G35 Multiple sclerosis; J44.9 Chronic obstructive pulmonary disease, unspecified; I11.0 Hypertensive heart disease with heart failure; I50.22 Chronic systolic (congestive) heart failure; I48.0 Paroxysmal atrial fibrillation; E11.9 Type 2 diabetes mellitus without complications; I25.10 Atherosclerotic heart disease of native coronary artery without angina pectoris; I25.5 Ischemic cardiomyopathy; M81.0 Age-related osteoporosis without current pathological fracture; I25.2 Old myocardial infarction; F17.210 Nicotine dependence, cigarettes, uncomplicated; Z79.01 Long term (current) use of anticoagulants; Z79.899 Other long term (current) drug therapy; Z79.84 Long term (current) use of oral hypoglycemic drugs
CPT/HCPCS: 71045; 80048; 84484; 85025; 93005; 96374; 99285; A4216; J2405

== ENCOUNTER 2021-05-16 09:52 | Emergency (ER) | payer MEDICARE, MEDICAID, SELFPAY ==
[2016-07-13 11:45] VITALS: BMI 31.4
[2021-05-16 09:53] VITALS: BP 132/62; PULSE 77; RESP 16; TEMP 36.9; O2SAT 96; BMI 29.9
--- NOTE | 2021-05-16 10:04 | RAD_ITS ---
STUDY: X-RAY CHEST REASON FOR EXAM: Female, 65 years old. Chest pain TECHNIQUE: Single AP portable view of the chest. COMPARISON: Comparison is made with prior study dated 05/11/2021. FINDINGS: EKG electrodes are seen. The lungs are clear and expanded. There is no demonstrated pleural abnormality. Normal size heart. Normal mediastinum and sara. Normal visualized pulmonary arteries. There is atherosclerotic tortuosity of the aortic arch and descending thoracic aorta. Normal visualized thoracic spine. The patient is status post fusion in the lower cervical spine. There is no demonstrated abnormality of the visualized soft tissue structures of the upper abdomen. RAD/Chest 1 View (Portable) IMPRESSION: No acute abnormality is seen. Electronically Signed: Daljit Jordan MD at 10:58 EST , Service support ,
--- NOTE | 2021-05-16 10:04 | EKG12_ITS ---
Test Reason : CP\BACK PAIN Blood Pressure : / mmHG Vent. Rate : 066 BPM Atrial Rate : 066 BPM P-R Int : 150 ms QRS Dur : 092 ms QT Int : 388 ms P-R-T Axes : 027 -42 100 degrees QTc Int : 406 ms Normal sinus rhythm Left axis deviation Septal infarct , age undetermined Inferior infarct , age undetermined T wave abnormality, consider anterolateral ischemia Abnormal ECG Confirmed by CATHERINE WITT, GRIS ([id number]), map editor YUNG MUNGUIA ([id number]) on 05/17/2021 9:35:28 AM Referred By: EZEKIEL/RAN Confirmed By:GRIS ALEXANDER MD
[2021-05-16 10:11] LABS: Absolute Lymphocyte Count 1.37 X10^3/uL (0.83-4.51); Absolute Neutrophil Count 4.3 X10^3/uL (2.0-7.7); Basophil# 0.06 X10^3/uL; Basophil% 0.9 % (0-1); Eosinophil# 0.25 X10^3/uL; Eosinophils% 3.8 % (0-5); Hematocrit 36.7 % (37-47); Hemoglobin 11.3 g/dL (12.0-15.0); Lymphocyte # 1.37 X10^3/ul (0.83-4.51); Lymphocyte % 20.6 % (19-41); Mean Corp Hgb Conc 30.8 g/dL (32-36); Mean Corpuscular Hgb 28.5 pg (27.0-32.0); Mean Corpuscular Volume 92.4 fL (81-99); Mean Platelet Vol. 9.5 fl (6.2-12.0); NRBC Flagged by Analyzer 0 % (0-5); Neutrophil # 4.34 X10^3/uL (2.7-7.7); Neutrophil % 65.4 % (47-70); Platelet Count 236 K/mm3 (150-450); RBC Distribution Width CV 15.8 % (11.6-14.6); RBC Distribution Width SD 53.1 fl (35.1-43.9); Red Blood Count 3.97 M/mm3 (4.2-5.4); White Blood Count 6.6 K/mm3 (4.4-11.0)
[2021-05-16 10:24] LABS: Anion Gap 6 (5-15); BUN 23 mg/dL (7-18); BUN/Creat Ratio 24.7 RATIO (10-20); Calcium,Total 9.9 mg/dL (8.5-10.1); Chloride 102 mmol/L (98-107); Creatinine, Serum 0.93 mg/dL (0.55-1.02); EST Glomerular Filtration Rate 64 mL/min (>60); Est Glom Filt Rate - Afr Amer 77 mL/min (>60); Estimated Creatinine Clearance 53.54 ml/min; Glucose 284 mg/dL (74-106); Potassium 4.4 mmol/L (3.5-5.1); Sodium Level 134 mmol/L (136-145); Troponin-I HS 12 pg/mL (3.0-54.0)
--- NOTE | 2021-05-16 10:32 | EDS_ITS ---
HPI History of Present Illness Chief Complaint: Chest Pain Narrative Narrative: 65-year-old female with history of CAD, OK, cardiac stents, ischemic cardiomyopathy, congestive heart failure, A. fib, PE presenting with chest pain. She states it started at 5 AM. She states it is sharp and crushing. She states she took 5 nitros over the course of the morning. She states that when she takes a nitroglycerin her chest pain gets better but then eventually comes back. Patient had a stress test and a cardiac catheterization mid 2020. This was due to continued chest pain. She has multiple ER visits for similar chest pain. Patient states that she is anticoagulated on Eliquis has not been missing any doses. Patient has not had fever, chills, cough. She does report that she has dysuria and her bilateral flanks are burning. She states she has history of UTI. [facility] Medical History Anxiety Apical mural thrombus with acute OK Atherosclerotic heart disease of [place] coronary artery without angina pectoris Cervical spinal stenosis Chronic anticoagulation Chronic back pain Chronic systolic (congestive) heart failure Closed right tibial fracture COPD (chronic obstructive pulmonary disease) Diabetes mellitus type 2 in nonobese Essential (primary) hypertension Flank pain Fracture of distal end of right tibia Hematemesis Hiatal hernia History of peptic ulcer disease History of ST elevation myocardial infarction (STEMI) HTN (hypertension) Hyperglycemia due to type 2 diabetes mellitus IBS (irritable bowel syndrome) Irritable bowel syndrome with diarrhea Ischemic cardiomyopathy Left ventricular hypertrophy Major depression Multiple sclerosis Nicotine abuse Nondisplaced pilon fracture of right tibia, initial encounter for closed fracture BRYAN (obstructive sleep apnea) Osteoporosis Pain of right lower extremity Paroxysmal atrial fibrillation RLS (restless legs syndrome) Suicidal ideation Tachycardia Takotsubo syndrome Vitamin B12 deficiency Home Medications albuterol sulfate 2 puff INHALATION Q6H PRN PRN 10/23/17 [History Last Taken 06/08/19] teriflunomide 14 mg PO DAILY 09/20/19 [History Last Taken 08/14/20 09:00] modafinil 200 mg PO DAILY 12/12/19 [History Last Taken 08/14/20 09:00] acetaminophen 1,000 mg PO TID PRN #1 tablet 07/29/20 [Rx Last Taken Unknown] blood sugar diagnostic #100 each 08/10/20 [Rx Last Taken Unknown] ascorbic acid (vitamin C) 500 mg PO DAILY #30 tab.chew 08/17/20 [Rx Last Taken Unknown] atorvastatin 40 mg tablet 40 mg PO DAILY #30 tab 09/18/20 [Rx Last Taken Unknown] cholecalciferol (vitamin D3) 25 mcg (1,000 unit) capsule 50 mcg PO DAILY cap 09/18/20 [History Last Taken Unknown] acidophilus-pectin, citrus 1 cap PO DAILY 09/23/20 [History Last Taken Unknown] donepezil 10 mg tablet 20 mg PO DAILY #180 tab 10/02/20 [Rx Last Taken Unknown] diclofenac potassium 50 mg PO BID #20 tab 11/12/20 [Rx Last Taken Unknown] calcium carbonate 600 mg calcium (1,500 mg) tablet 600 mg PO BID #180 tab 12/25/20 [Rx Last Taken Unknown] denosumab 60 mg/mL subcutaneous syringe 60 mg SUBCUT [id number] #1 ml 12/25/20 [Rx Last Taken Unknown] potassium chloride 20 mEq tablet,extended release 20 meq PO DAILY #90 tab 01/15/21 [Rx Last Taken Unknown] ropinirole 1 mg tablet 1 mg PO BID #180 tab 01/30/21 [Rx Last Taken Unknown] carvedilol 25 mg tablet 25 mg PO BID #180 tab 02/05/21 [Rx Last Taken Unknown] duloxetine 30 mg capsule,delayed release 30 mg PO BID #60 cap 02/11/21 [Rx Last Taken Unknown] lisinopril 20 mg tablet 20 mg PO BID #180 tab 04/02/21 [Rx Last Taken Unknown] tizanidine 2 mg tablet 2 mg PO QHS PRN #30 tab 04/04/21 [Rx Last Taken Unknown] nitroglycerin 0.4 mg sublingual tablet 0.4 mg SL Q5-15M #25 tab 04/10/21 [Rx Last Taken Unknown] dicyclomine 20 mg tablet 20 mg PO BID PRN #180 tablet 04/15/21 [Rx Last Taken Unknown] amlodipine 2.5 mg tablet 2.5 mg PO DAILY #90 tab 04/22/21 [Rx Last Taken Unknown] apixaban 5 mg tablet 5 mg PO BID #180 tab 04/22/21 [Rx Last Taken Unknown] glimepiride 4 mg tablet 4 mg PO BID #60 tab 04/23/21 [Rx Last Taken Unknown] hydroxyzine HCl 50 mg tablet 50 mg PO TID #90 tab 04/23/21 [Rx Last Taken Unknown] pantoprazole 40 mg tablet,delayed release 40 mg PO DAILY #30 tablet 04/23/21 [Rx Last Taken Unknown] pioglitazone 30 mg tablet 30 mg PO DAILY #30 tab 04/23/21 [Rx Last Taken Unknown] ondansetron 4 mg PO Q8H PRN #10 tab 04/24/21 [Rx Last Taken Unknown] sucralfate 1 gram tablet 1 g PO 4X/DAY #120 tablet 04/30/21 [Rx Last Taken Unknown] isosorbide mononitrate 60 mg PO BID #120 tab 05/08/21 [Rx Last Taken Unknown] tramadol 50 mg PO 4X/DAY PRN PRN #35 tab 05/08/21 [Rx Last Taken Unknown] Allergy/AdvReac Type Severity Reaction Status Date / Time indomethacin [From Indocin] Allergy Hives Verified 05/16/21 09:59 indomethacin sodium Allergy Hives Verified 05/16/21 09:59 [From Indocin] iodine Allergy Hives Verified 05/16/21 09:59 propoxyphene napsylate Allergy Out of Verified 05/16/21 09:59 [From Darvocet-N] control aripiprazole [From Abilify] AdvReac Other Verified 05/16/21 09:59 aspirin AdvReac Upset Verified 05/16/21 09:59 Stomach clindamycin AdvReac Nausea Verified 05/16/21 09:59 metformin AdvReac Other Verified 05/16/21 09:59 sumatriptan [From Imitrex] AdvReac Vomiting Verified 05/16/21 09:59 Family History Father Cancer Lung cancer Mother Cancer Pancreatic cancer Surgical History History of amputation of left great toe History of back surgery History of cervical discectomy History of coronary artery stent placement (04/08/16) History of endoscopy History of left heart catheterization (09/25/20) History of left knee surgery History of loop recorder (06/2014) History of tonsillectomy and adenoidectomy Social History household members: none Smoking Status: Current every day smoker tobacco type: cigarettes alcohol intake: never substance use type: does not use caffeine: Yes Type: coffee Number of servings: 1 what type of physical activity do you participate in: none and other details: Physical Therapy ROS ROS ED Constitutional Constitutional ED: Denies chills or fever(s) Eyes Eyes: Denies blurry vision or change in vision ENT ENT ED: Denies rhinorrhea or sore throat Cardiovascular Cardiovascular: Reports as per HPI Respiratory/Chest Respiratory/Chest: Denies cough or dyspnea Gastrointestinal Gastrointestinal: Reports nausea; Denies abdominal pain, diarrhea or vomiting Genitourinary Genitourinary ED: Reports dysuria Musculoskeletal Musculoskeletal: Reports back pain; Denies myalgias Integumentary Denies rash Neurologic Neurologic: Reports paresthesias; Denies headache(s) EXAM Physical Exam Const Vital Signs: 05/16/21 09:53 05/16/21 10:07 05/16/21 10:41 Temperature 98.4 F Temperature Source Oral Pulse Rate 77 Respiratory Rate 16 Respiratory Effort Normal Non-Labored Respiratory Pattern Normal Blood Pressure 132/62 H Blood Pressure Mean 85 Pulse Ox 96 97 Oxygen Delivery Method Room Air Room Air 05/16/21 13:07 Temperature Temperature Source Pulse Rate 80 Respiratory Rate 16 Respiratory Effort Respiratory Pattern Blood Pressure 139/72 H Blood Pressure Mean 94 Pulse Ox 96 Oxygen Delivery Method Room Air Positive well developed General Appearance ED: well developed and NAD; Negative for pallor HEENT normocephalic and atraumatic Eyes PERRL and EOMs intact bilaterally Neck no lymphadenopathy and supple Chest Wall inspection of chest normal and palpation of chest normal Resp normal respiratory effort and clear to auscultation bilaterally Cardio regular rate and regular rhythm GI normal to inspection, nondistended, normoactive bowel sounds Back/Spine General Back: CVA tenderness bilateral Extremity normal to inspection Neuro oriented x3 Sensorium / Orientation: awake and alert Psych mental status grossly normal Skin General Skin Exam: Negative for jaundice or pallor Heart Score History: Slightly/Non-Suspicious ECG: Normal Age: >/= 65 years Risk Factors: >/= 3 Risk Factors or History of CAD Score: 4 MDM MDM MDM Narrative Medical decision making narrative: Patient presenting with chest pain since 5 AM and states it has been constant since that time. EKG obtained on my interpretation shows normal sinus rhythm with ventricular rate of 66 bpm without significant change from her previous EKG 11 May 2021. Patient was given morphine and Zofran. I will obtain a urinalysis due to her complaint of UTI. CBC is unremarkable. Renal function electrolytes are normal. High-sensitivity troponin was 12 initially and the delta troponin is also 12. A full dose rule out ACS. Patient anticoagulated and I have low suspicion for PE or dissection. Urinalysis is negative but it was sent for culture. Chest x-ray on my interpr etation shows no acute cardiopulmonary process and radiologist agree. Patient was given Ultram here which she takes at home. She has a care plan so I did not give her any narcotic pain medication. She did request a prescription for Ultram for home and I referred her to a primary care. She has a follow-up visit coming up. She states she will call the office for prescription she states she usually can do this. Impression: 1. Chest pain noncardiac 2. Dysuria unknown cause Lab Data Labs: Laboratory Results - last 24 hr 05/16/21 05/16/21 05/16/21 09:55 09:55 10:40 WBC 6.6 RBC 3.97 L Hgb 11.3 L Hct 36.7 L MCV 92.4 MCH 28.5 MCHC 30.8 L RDW Std Deviation 53.1 H RDW Coeff of Yeimi 15.8 H Plt Count 236 MPV 9.5 Immature Gran % (Auto) 0.300 Neut % (Auto) 65.4 Lymph % (Auto) 20.6 Walker % (Auto) 9.0 Eos % (Auto) 3.8 Baso % (Auto) 0.9 Absolute Neuts (auto) 4.3 Absolute Lymphs (auto) 1.37 Nucleated RBC % 0 Sodium 134 L Potassium 4.4 Chloride 102 Carbon Dioxide 26.0 Anion Gap 6 BUN 23 H Creatinine 0.93 Estim Creat Clear Calc 53.54 Est GFR (MDRD) Af Amer 77 Est GFR (MDRD) Non-Af 64 BUN/Creatinine Ratio 24.7 H Glucose 284 H Calcium 9.9 Troponin I High Sens 12 Urine Color Yellow Urine Clarity Sl. Cloudy Urine pH 6.0 Ur Specific [place] 1.020 Urine Protein 15 H Urine Glucose (UA) 100 H Urine Ketones Negative Urine Occult Blood Negative Urine Nitrite Negative Urine Bilirubin Negative Urine Urobilinogen Normal Ur Leukocyte Esterase 25 H Urine RBC 0 SEEN Urine WBC 0-5 SEEN Ur Squamous Epith Cells 0-5 SEEN Urine Bacteria 1+ Urine Mucus 0 SEEN 05/16/21 12:19 WBC RBC Hgb Hct MCV MCH MCHC RDW Std Deviation RDW Coeff of [place] Plt Count MPV Immature Gran % (Auto) Neut % (Auto) Lymph % (Auto) Walker % (Auto) Eos % (Auto) Baso % (Auto) Absolute Neuts (auto) Absolute Lymphs (auto) Nucleated RBC % Sodium Potassium Chloride Carbon Dioxide Anion Gap BUN Creatinine Estim Creat Clear Calc Est GFR (MDRD) Af Amer Est GFR (MDRD) Non-Af BUN/Creatinine Ratio Glucose Calcium Troponin I High Sens 12 Urine Color Urine Clarity Urine pH Ur Specific [place] Urine Protein Urine Glucose (UA) Urine Ketones Urine Occult Blood Urine Nitrite Urine Bilirubin Urine Urobilinogen Ur Leukocyte Esterase Urine RBC Urine WBC Ur Squamous Epith Cells Urine Bacteria Urine Mucus Radiography Diagnostic Testing: Clinical Impression(s) from Imaging Studies Chest X-Ray 05/16/21 10:04 IMPRESSION: No acute abnormality is seen. Electronically Signed: Daljit Jordan MD at 10:58 EST , Service support , Discharge Plan Triage Chief Complaint: Chest Pain ED Provider: Yosef Lugo Dx/Rx/DC Orders Instructions: ED Chest Pain, Noncardiac, ED Dysuria, Uncertain Cause (Adult) Prescriptions: No Action cholecalciferol (vitamin D3) 25 mcg (1,000 unit) capsule 50 mcg PO DAILY RF: 0 donepezil [Aricept] 10 mg tablet 20 mg PO DAILY Qty: 180 RF: 1 calcium carbonate 600 mg calcium (1,500 mg) tablet 600 mg PO BID Qty: 180 RF: 1 Prolia 60 mg/mL syringe 60 mg subcut [id number] Qty: 1 RF: 1 ropinirole 1 mg tablet 1 mg PO BID Qty: 180 RF: 1 tizanidine 2 mg tablet 2 mg PO QHS PRN (Reason: muscle spasticity) Qty: 30 RF: 0 nitroglycerin 0.4 mg tablet, sublingual 0.4 mg SL Q5-15M Qty: 25 RF: 3 albuterol sulfate 1 INHALER inhaler 2 puff INHALATION Q6H PRN PRN (Reason: Sob &/Or Wheezing) RF: 0 teriflunomide 14 mg tablet 14 mg PO DAILY RF: 0 modafinil 200 MG tablet 200 mg PO DAILY RF: 0 acetaminophen 500 MG tablet 1,000 mg PO TID PRN (Reason: pain 1-02/03) Qty: 1 RF: 0 ascorbic acid (vitamin C) 500 MG tablet,chewable 500 mg PO DAILY Qty: 30 RF: 0 acidophilus-pectin, citrus 100 million cell-10 mg Capsule 1 cap PO DAILY RF: 0 diclofenac potassium 50 mg tablet 50 mg PO BID Qty: 20 RF: 0 ondansetron 4 mg tablet,disintegrating 4 mg PO Q8H PRN (Reason: nausea and vomiting) Qty: 10 RF: 0 isosorbide mononitrate 30 mg Tablet Extended Release 24 Hr 60 mg PO BID Qty: 120 RF: 0 tramadol 50 mg Tablet 50 mg PO 4X/DAY PRN PRN (Reason: pain 1-10) Qty: 35 RF: 0 (DME) Accu-Chek Ada Plus test strp Strip See Rx Instructions .ROUTE .MEDSUPPLY Qty: 100 RF: 3 atorvastatin 40 mg tablet 40 mg PO DAILY Qty: 30 RF: 11 potassium chloride 20 mEq tablet extended release 20 meq PO DAILY Qty: 90 RF: 0 carvedilol 25 mg tablet 25 mg PO BID Qty: 180 RF: 3 duloxetine [Cymbalta] 30 mg capsule,delayed release(DR/EC) 30 mg PO BID Qty: 60 RF: 2 lisinopril 20 mg tablet 20 mg PO BID Qty: 180 RF: 3 dicyclomine 20 mg tablet 20 mg PO BID PRN (Reason: abdominal discomfort) Qty: 180 RF: 2 amlodipine [Norvasc] 2.5 mg tablet 2.5 mg PO DAILY Qty: 90 RF: 3 Eliquis 5 mg tablet 5 mg PO BID Qty: 180 RF: 3 pioglitazone 30 mg tablet 30 mg PO DAILY Qty: 30 RF: 3 glimepiride 4 mg tablet 4 mg PO BID Qty: 60 RF: 3 hydroxyzine HCl 50 mg tablet 50 mg PO TID Qty: 90 RF: 1 pantoprazole 40 mg tablet,delayed release (DR/EC) 40 mg PO DAILY Qty: 30 RF: 3 sucralfate 1 gram tablet 1 g PO 4X/DAY Qty: 120 RF: 1 Primary Care Provider: Tom Sherman Referrals: Tom Sherman MD [Primary Care Provider] - Disposition Disposition: Home, Self Care
[2021-05-16 10:41] VITALS: O2SAT 97
[2021-05-16] MEDS: Ondansetron 4 MG/2 ML Vial IV (10:44)
[2021-05-16 10:52] LABS: Color, Urine Yellow (Yellow); Glucose, Dipstick 100 mg/dl (Normal); Ketone-Dipstick Negative (Negative); Leukocyte Esterase-Dipstick 25 /ul (Negative); Mucous, Urine 0 SEEN /hpf (<or=2+); Nitrite-Dipstick Negative (Negative); Occult Blood-Urine Negative /ul (Negative); Protein-Dipstick 15 mg/dl (Negative); Red Blood Cells-Urine 0 SEEN /hpf (0-5); Urine Bilirubin Dipstick Negative (Negative); Urine Clarity Sl. Cloudy (Clear); Urine Urobilinogen Normal (Normal)
[2021-05-16 10:59] LABS: Bacteria 1+ /hpf (None Seen); Squamous Epithelial Cells - UA 0-5 SEEN /hpf (5-10); White Blood Cells 0-5 SEEN /hpf (0-5)
[2021-05-16] MEDS: traMADol 50 MG Tablet PO (11:07)
--- NOTE | 2021-05-16 11:27 | CM.ED ---
Addendum entered by Mary Griggs 05/20/21 14:49: PRAVIN advised patient that she was here on Thursday and patient said no I wasn't. SW stated that yes, patient was here on Thursday. Patient then stated she had been to the ED. Mary Indu ANKUSH REYES Original Note: PRAVIN Note Referral Source: Care Plan Referral Reason: Care Plan SW met with patient. The first thing she said to me is what is verifiable pain?. SW explained that care plan is for verifiable and acute pain. No chronic pain. Patient asked if a UTI is a verifiable pain and Sw said that through urine screens the UTI could be verified. Patient said that she [facility] and [facility] Manager Fixed Income. SW asked patient if there are any patterns that she notices for the chest pain as some people have chest pain related to anxiety and panic attacks. Patient said that the chest pain wakes her up. Patient said I am in a catch 22... do I call the squad or do i stay at home and have a heart attack. SW stated that if patient has chest pains she needs to come to the ED. SW said that since she has a care plan patient will not get morphine or narcotics. Patient said I didn't ask for them.. he ordered them. Patient said that she has not heard from the [employer] staff member since she came to the house that one time as she had the wrong phone number . Patient said that her son resides with her. Patient said that her son is working first shift and works in Construction in [place]. SW remains available if needs arise. oracle business intelligence developer Pepper had advised that patient also had asked her if a UTI is verifiable pain. Plan: Patient continues to remain on a care plan.
[2021-05-16 12:51] LABS: Troponin-I HS 12 pg/mL (3.0-54.0)
[2021-05-16 13:07] VITALS: BP 139/72; PULSE 80; RESP 16; O2SAT 96
== END 2021-05-16 13:48 | disposition home or self-care (01) ==
PROVIDERS: Emergency Provider Student in an Organized Health Care Education/Training Program; PCP Internal Medicine; Visit Provider Student in an Organized Health Care Education/Training Program
DX: R07.89 Other chest pain (principal); J44.9 Chronic obstructive pulmonary disease, unspecified; I11.0 Hypertensive heart disease with heart failure; I50.22 Chronic systolic (congestive) heart failure; I48.0 Paroxysmal atrial fibrillation; E11.9 Type 2 diabetes mellitus without complications; R30.0 Dysuria; I25.10 Atherosclerotic heart disease of native coronary artery without angina pectoris; I25.5 Ischemic cardiomyopathy; F17.210 Nicotine dependence, cigarettes, uncomplicated; G47.33 Obstructive sleep apnea (adult) (pediatric); I25.2 Old myocardial infarction; Z95.5 Presence of coronary angioplasty implant and graft; Z79.84 Long term (current) use of oral hypoglycemic drugs; Z79.899 Other long term (current) drug therapy
CPT/HCPCS: 71045; 80048; 81001; 84484; 85025; 87086; 87088; 93005; 96374; 96375; 99285; A4216; J2405

== ENCOUNTER 2021-06-22 11:40 | Emergency (ER) | payer MEDICARE, MEDICAID, SELFPAY ==
[2016-07-13 11:45] VITALS: BMI 31.4
[2021-06-22 11:40] VITALS: BP 145/118
[2021-06-22 11:41] VITALS: PULSE 64; RESP 24; TEMP 36.6; O2SAT 99; BMI 30.5
--- NOTE | 2021-06-22 12:20 | CT_ITS ---
STUDY: CT BRAIN WITHOUT CONTRAST REASON FOR EXAM: Female, 65 years old. Headache RADIATION DOSAGE (If Supplied By Facility): CTDIvol = ( 44.99 ) mGy, DLP = ( 846.73 ) mGycm TECHNIQUE: Transaxial CT imaging of the brain was performed without administration of intravenous contrast material. Individualized dose optimization techniques were used for this CT. COMPARISON: 04/24/2021 FINDINGS: Normal soft tissue structures. Normal calvarium. There is moderate cerebral atrophy with widening of the extra-axial spaces and ventricular dilatation. There are areas of decreased attenuation within the white matter tracts of the supratentorial brain, consistent with microvascular disease changes. Normal basal ganglia and thalami. Normal brainstem. Normal cerebellum. There is no intracranial hemorrhage. There are no findings of an acute ischemic infarction. Normal visualized paranasal sinuses. CT/Brain/Head without Contrast IMPRESSION: Chronic involutional changes of the brain. Electronically Signed: Armando Taylor MD at 13:31 EST ,
--- NOTE | 2021-06-22 12:21 | EKG12_ITS ---
Test Reason : CP Blood Pressure : / mmHG Vent. Rate : 062 BPM Atrial Rate : 062 BPM P-R Int : 166 ms QRS Dur : 086 ms QT Int : 420 ms P-R-T Axes : 019 -37 112 degrees QTc Int : 426 ms Normal sinus rhythm Left axis deviation Inferior infarct , age undetermined Anteroseptal infarct , age undetermined T wave abnormality, consider lateral ischemia Abnormal ECG Confirmed by ALLAN WITT, DORYS ([id number]), makeup editor YUNG MUNGUIA ([id number]) on 06/24/2021 12:20:07 PM Referred By: ACE Confirmed By:DORYS LEMUS MD
--- NOTE | 2021-06-22 12:23 | EDS_ITS ---
HPI History of Present Illness Chief Complaint: Chest Pain Narrative Narrative: Patient with multiple medical problems including coronary artery disease with 2 stents, presents with multiple complaints. She states that she has right side pain and thinks she has a UTI. She denies any fevers or chills. She states that she awoke this morning at 4 AM with chest pain that feels tight and crushing. Additionally, she has a frontal headache. She denies any exacerbating or alleviating factors. She is nauseated but has not vomited. States on occasion she feels short of breath. She denies any diaphoresis. She presents via EMS with mainly the side pain, chest pain, and headache. She also states that she has a rash under her breasts. [facility] Medical History Anxiety Apical mural thrombus with acute DC Atherosclerotic heart disease of [place] coronary artery without angina pectoris Cervical spinal stenosis Chronic anticoagulation Chronic back pain Chronic systolic (congestive) heart failure Closed right tibial fracture COPD (chronic obstructive pulmonary disease) Diabetes mellitus type 2 in nonobese Essential (primary) hypertension Flank pain Fracture of distal end of right tibia Hematemesis Hiatal hernia History of peptic ulcer disease History of ST elevation myocardial infarction (STEMI) Hyperglycemia due to type 2 diabetes mellitus IBS (irritable bowel syndrome) Irritable bowel syndrome with diarrhea Ischemic cardiomyopathy Left ventricular hypertrophy Major depression Multiple sclerosis Nicotine abuse Nondisplaced pilon fracture of right tibia, initial encounter for closed fracture BRYAN (obstructive sleep apnea) Osteoporosis Pain of right lower extremity Paroxysmal atrial fibrillation RLS (restless legs syndrome) Suicidal ideation Tachycardia Takotsubo syndrome Vitamin B12 deficiency Home Medications albuterol sulfate 2 puff INHALATION Q6H PRN PRN 10/23/17 [History Last Taken 06/08/19] teriflunomide 14 mg PO DAILY 09/20/19 [History Last Taken 08/14/20 09:00] modafinil 200 mg PO DAILY 12/12/19 [History Last Taken 08/14/20 09:00] acetaminophen 1,000 mg PO TID PRN #1 tablet 07/29/20 [Rx Last Taken Unknown] blood sugar diagnostic #100 each 08/10/20 [Rx Last Taken Unknown] ascorbic acid (vitamin C) 500 mg PO DAILY #30 tab.chew 08/17/20 [Rx Last Taken Unknown] atorvastatin 40 mg tablet 40 mg PO DAILY #30 tab 09/18/20 [Rx Last Taken Unknown] cholecalciferol (vitamin D3) 25 mcg (1,000 unit) capsule 50 mcg PO DAILY cap 09/18/20 [History Last Taken Unknown] acidophilus-pectin, citrus 1 cap PO DAILY 09/23/20 [History Last Taken Unknown] diclofenac potassium 50 mg PO BID #20 tab 11/12/20 [Rx Last Taken Unknown] denosumab 60 mg/mL subcutaneous syringe 60 mg SUBCUT [id number] #1 ml 12/25/20 [Rx Last Taken Unknown] potassium chloride 20 mEq tablet,extended release 20 meq PO DAILY #90 tab 01/15/21 [Rx Last Taken Unknown] ropinirole 1 mg tablet 1 mg PO BID #180 tab 01/30/21 [Rx Last Taken Unknown] tizanidine 2 mg tablet 2 mg PO QHS PRN #30 tab 04/04/21 [Rx Last Taken Unknown] nitroglycerin 0.4 mg sublingual tablet 0.4 mg SL Q5-15M #25 tab 04/10/21 [Rx Last Taken Unknown] dicyclomine 20 mg tablet 20 mg PO BID PRN #180 tablet 04/15/21 [Rx Last Taken Unknown] amlodipine 2.5 mg tablet 2.5 mg PO DAILY #90 tab 04/22/21 [Rx Last Taken Unknown] apixaban 5 mg tablet 5 mg PO BID #180 tab 04/22/21 [Rx Last Taken Unknown] glimepiride 4 mg tablet 4 mg PO BID #60 tab 04/23/21 [Rx Last Taken Unknown] hydroxyzine HCl 50 mg tablet 50 mg PO TID #90 tab 04/23/21 [Rx Last Taken Unkn own] pantoprazole 40 mg tablet,delayed release 40 mg PO DAILY #30 tablet 04/23/21 [Rx Last Taken Unknown] pioglitazone 30 mg tablet 30 mg PO DAILY #30 tab 04/23/21 [Rx Last Taken Unknown] ondansetron 4 mg PO Q8H PRN #10 tab 04/24/21 [Rx Last Taken Unknown] sucralfate 1 gram tablet 1 g PO 4X/DAY #120 tablet 04/30/21 [Rx Last Taken Unknown] isosorbide mononitrate 60 mg PO BID #120 tab 05/08/21 [Rx Last Taken Unknown] tramadol 50 mg PO 4X/DAY PRN PRN #35 tab 05/08/21 [Rx Last Taken Unknown] carvedilol 25 mg tablet 25 mg PO BID #180 tab 05/21/21 [Rx Last Taken Unknown] donepezil 10 mg tablet 20 mg PO DAILY #180 tab 05/28/21 [Rx Last Taken Unknown] calcium carbonate 600 mg calcium (1,500 mg) tablet 600 mg PO BID #180 tab 06/18/21 [Rx Last Taken Unknown] duloxetine 30 mg capsule,delayed release 30 mg PO BID #180 cap 06/21/21 [Rx Last Taken Unknown] lisinopril 40 mg PO BID 06/22/21 [History Last Taken Unknown] Allergy/AdvReac Type Severity Reaction Status Date / Time indomethacin [From Indocin] Allergy Hives Verified 06/22/21 11:49 indomethacin sodium Allergy Hives Verified 06/22/21 11:49 [From Indocin] iodine Allergy Hives Verified 06/22/21 11:49 propoxyphene napsylate Allergy Out of Verified 06/22/21 11:49 [From Darvocet-N] control aripiprazole [From Abilify] AdvReac Other Verified 06/22/21 11:49 aspirin AdvReac Upset Verified 06/22/21 11:49 Stomach clindamycin AdvReac Nausea Verified 06/22/21 11:49 metformin AdvReac Other Verified 06/22/21 11:49 sumatriptan [From Imitrex] AdvReac Vomiting Verified 06/22/21 11:49 Family History Father Cancer Lung cancer Mother Cancer Pancreatic cancer Surgical History History of amputation of left great toe History of back surgery History of cervical discectomy History of coronary artery stent placement (04/08/16) History of endoscopy History of left heart catheterization (09/25/20) History of left knee surgery History of loop recorder (06/2014) History of tonsillectomy and adenoidectomy Social History household members: none Smoking Status: Current every day smoker tobacco type: cigarettes alcohol intake: never substance use type: does not use caffeine: Yes Type: coffee Number of servings: 1 what type of physical activity do you participate in: none and other details: Physical Therapy ROS ROS ED ROS Narrative Constitutional: No fever, no chills. HEENT: No sore throat. No neck pain. No loss of vision. No rhinorrhea. Cardiovascular: Positive chest pain. No palpitations. No pedal edema. Respiratory: No cough, no shortness of breath. Abdominal: Right side/flank abdominal pain. Mild nausea. No vomiting. Genitourinary: No dysuria. No hematuria. Musculoskeletal: No myalgias. No arthralgias. Neurologic: Positive headaches. No dizziness. No lightheadedness. Skin: Positive rash under breasts. No change in color. Psychiatric: No depression. No anxiety. EXAM Physical Exam Narrative Exam Narrative: Afebrile. Vital signs noted. HEENT: Normocephalic. Atraumatic. PERRL, EOMI. Neck soft and supple. No point tenderness or step off. Cardiovascular: Regular rate and rhythm. No murmurs, rubs, or gallops appreciated. Respiratory: No tachypnea. Lungs clear to auscultation bilaterally. Gastrointestinal: Abdomen soft, nontender, with normoactive bowel sounds. No rebound or guarding. Neurological: Awake. Alert. Nonfocal, nonlateralizing. Skin: No rash. Normal color. No pallor. Musculoskeletal: No pedal edema. Full range of motion extremities. Const Vital Signs: 06/22/21 11:40 06/22/21 11:41 06/22/21 11:50 Temperature 97.8 F Temperature Source Temporal Pulse Rate 64 Respiratory Rate 24 H Respiratory Pattern Tachypnea Blood Pressure 145/118 H Blood Pressure Mean 127 Pulse Ox 99 Oxygen Delivery Method Room Air 06/22/21 12:36 06/22/21 13:40 06/22/21 15:00 Temperature Temperature Source Pulse Rate 88 68 Respiratory Rate 16 16 Respiratory Pattern Blood Pressure 99/57 L 117/78 Blood Pressure Mean 71 91 Pulse Ox 98 96 Oxygen Delivery Method Room Air Room Air Room Air MDM MDM MDM Narrative Medical decision making narrative: Comprehensive work-up was pursued. Patient asked for an Ultram and for Zofran for her chronic pain and nausea. Her EKG demonstrates normal sinus rhythm at 62 bpm without ectopy or acute ST changes. She has normal white count of 6.0, hemoglobin 9.8. Electrolyte panel shows slightly low sodium of 131, BUN of 26 with a creatinine of 1.04. Initial high- sensitivity troponin negative at 10, repeat normal at 9. Lipase normal at 131. Urinalysis shows no evidence of infection. Chest x-ray shows no acute process. At this point in time, I do feel that she can be discharged safely home. She was able to ambulate to the bathroom here in the emergency department. Return instructions were reviewed. Disposition is discharged home in stable condition. Lab Data Attestation: I reviewed the patient's lab results. Labs: Laboratory Results - last 24 hr 06/22/21 06/22/21 06/22/21 12:30 12:30 14:10 WBC 6.0 RBC 3.35 L Hgb 9.8 L Hct 29.7 L MCV 88.7 MCH 29.3 MCHC 33.0 RDW Std Deviation 44.5 H RDW Coeff of Yeimi 13.7 Plt Count 210 MPV 9.7 Immature Gran % (Auto) 0.300 Neut % (Auto) 62.0 Lymph % (Auto) 21.1 [place] % (Auto) 11.1 H Eos % (Auto) 4.3 Baso % (Auto) 1.2 H Absolute Neuts (auto) 3.7 Absolute Lymphs (auto) 1.27 Nucleated RBC % 0 Sodium 131 L Potassium 4.1 Chloride 102 Carbon Dioxide 24.0 Anion Gap 5 BUN 26 H Creatinine 1.04 H Estim Creat Clear Calc 47.88 Est GFR (MDRD) Af Amer 68 Est GFR (MDRD) Non-Af 56 L BUN/Creatinine Ratio 25.0 H Glucose 378 H Calcium 9.1 Troponin I High Sens 10 9 Lipase 131 Urine Color Urine Clarity Urine pH Ur Specific Roberta Urine Protein Urine Glucose (UA) Urine Ketones Urine Occult Blood Urine Nitrite Urine Bilirubin Urine Urobilinogen Ur Leukocyte Esterase Urine RBC Urine WBC Ur Squamous Epith Cells Urine Bacteria Urine Mucus 06/22/21 14:47 WBC RBC Hgb Hct MCV MCH MCHC RDW Std Deviation RDW Coeff of [place] Plt Count MPV Immature Gran % (Auto) Neut % (Auto) Lymph % (Auto) [place] % (Auto) Eos % (Auto) Baso % (Auto) Absolute Neuts (auto) Absolute Lymphs (auto) Nucleated RBC % Sodium Potassium Chloride Carbon Dioxide Anion Gap BUN Creatinine Estim Creat Clear Calc Est GFR (MDRD) Af Amer Est GFR (MDRD) Non-Af BUN/Creatinine Ratio Glucose Calcium Troponin I High Sens Lipase Urine Color Yellow Urine Clarity Sl. Cloudy Urine pH 6.5 Ur Specific Roberta 1.015 Urine Protein Negative Urine Glucose (UA) 250 H Urine Ketones Negative Urine Occult Blood Negative Urine Nitrite Negative Urine Bilirubin Negative Urine Urobilinogen Normal Ur Leukocyte Esterase 100 H Urine RBC 0 SEEN Urine WBC 0-5 SEEN Ur Squamous Epith Cells 0-5 SEEN Urine Bacteria 0 SEEN Urine Mucus 0 SEEN Radiography Diagnostic Testing: Clinical Impression(s) from Imaging Studies Brain CT 06/22/21 12:20 IMPRESSION: Chronic involutional changes of the brain. Electronically Signed: Armando Taylor MD at 13:31 EST Reading Location ID and State: [employer] / [employer] Tel , Service support , Chest X-Ray 06/22/21 12:35 IMPRESSION: Normal x-ray examination of the chest. Electronically Signed: Armando Taylor MD at 13:12 EST Reading Location ID and State: [id number] / [employer] Tel , Service support , Discharge Plan Triage Chief Complaint: Chest Pain Other Complaint: Back Headache ED Provider: Bonifacio Vidal Dx/Rx/DC Orders Clinical Impression: Chest pain, Flank pain, Headache, Chronic back pain Instructions: ED Chest Pain, Uncertain Cause, ED Flank Pain, Uncertain Cause, ED Headache Unspecified Prescriptions: No Action cholecalciferol (vitamin D3) 25 mcg (1,000 unit) capsule 50 mcg PO DAILY RF: 0 Prolia 60 mg/mL syringe 60 mg subcut [id number] Qty: 1 RF: 1 ropinirole 1 mg tablet 1 mg PO BID Qty: 180 RF: 1 tizanidine 2 mg tablet 2 mg PO QHS PRN (Reason: muscle spasticity) Qty: 30 RF: 0 nitroglycerin 0.4 mg tablet, sublingual 0.4 mg SL Q5-15M Qty: 25 RF: 3 albuterol sulfate 1 INHALER inhaler 2 puff INHALATION Q6H PRN PRN (Reason: Sob &/Or Wheezing) RF: 0 teriflunomide 14 mg tablet 14 mg PO DAILY RF: 0 modafinil 200 MG tablet 200 mg PO DAILY RF: 0 acetaminophen 500 MG tablet 1,000 mg PO TID PRN (Reason: pain 1-02/03) Qty: 1 RF: 0 ascorbic acid (vitamin C) 500 MG tablet,chewable 500 mg PO DAILY Qty: 30 RF: 0 acidophilus-pectin, citrus 100 million cell-10 mg Capsule 1 cap PO DAILY RF: 0 diclofenac potassium 50 mg tablet 50 mg PO BID Qty: 20 RF: 0 ondansetron 4 mg tablet,disintegrating 4 mg PO Q8H PRN (Reason: nausea and vomiting) Qty: 10 RF: 0 isosorbide mononitrate 30 mg Tablet Extended Release 24 Hr 60 mg PO BID Qty: 120 RF: 0 tramadol 50 mg Tablet 50 mg PO 4X/DAY PRN PRN (Reason: pain 1-10) Qty: 35 RF: 0 lisinopril 20 mg tablet 40 mg PO BID RF: 0 (DME) Accu-Chek Ada Plus test strp Strip See Rx Instructions .ROUTE .MEDSUPPLY Qty: 100 RF: 3 atorvastatin 40 mg tablet 40 mg PO DAILY Qty: 30 RF: 11 potassium chloride 20 mEq tablet extended release 20 meq PO DAILY Qty: 90 RF: 0 dicyclomine 20 mg tablet 20 mg PO BID PRN (Reason: abdominal discomfort) Qty: 180 RF: 2 amlodipine [Norvasc] 2.5 mg tablet 2.5 mg PO DAILY Qty: 90 RF: 3 Eliquis 5 mg tablet 5 mg PO BID Qty: 180 RF: 3 pioglitazone 30 mg tablet 30 mg PO DAILY Qty: 30 RF: 3 glimepiride 4 mg tablet 4 mg PO BID Qty: 60 RF: 3 hydroxyzine HCl 50 mg tablet 50 mg PO TID Qty: 90 RF: 1 pantoprazole 40 mg tablet,delayed release (DR/EC) 40 mg PO DAILY Qty: 30 RF: 3 sucralfate 1 gram tablet 1 g PO 4X/DAY Qty: 120 RF: 1 carvedilol 25 mg tablet 25 mg PO BID Qty: 180 RF: 3 donepezil [Aricept] 10 mg tablet 20 mg PO DAILY Qty: 180 RF: 1 calcium carbonate 600 mg calcium (1,500 mg) tablet 600 mg PO BID Qty: 180 RF: 1 duloxetine [Cymbalta] 30 mg capsule,delayed release(DR/EC) 30 mg PO BID Qty: 180 RF: 2 Primary Care Provider: Tom Sherman Referrals: Tom Sherman MD [Primary Care Provider] - 3-5 Days if not improving Disposition Disposition: Home, Self Care
[2021-06-22] MEDS: Ondansetron 4 MG/2 ML Vial IV (12:34)
[2021-06-22] MEDS: traMADol 50 MG Tablet PO (12:34)
--- NOTE | 2021-06-22 12:35 | RAD_ITS ---
STUDY: X-RAY CHEST REASON FOR EXAM: Female, 65 years old. chest pain TECHNIQUE: Single AP portable view of the chest. COMPARISON: 05/16/2021 FINDINGS: The lungs are clear and expanded. There is no demonstrated pleural abnormality. Normal size heart. Normal mediastinum and sara. Normal visualized pulmonary arteries. Normal visualized aortic arch and descending thoracic aorta. Normal visualized thoracic spine. Normal visualized ribs, clavicles, and shoulders. There is no demonstrated abnormality of the visualized soft tissue structures of the upper abdomen. RAD/Chest 1 View (Portable) IMPRESSION: Normal x-ray examination of the chest. Electronically Signed: Armando Taylor MD at 13:12 EST ,
[2021-06-22 12:43] LABS: Absolute Lymphocyte Count 1.27 X10^3/uL (0.83-4.51); Absolute Neutrophil Count 3.7 X10^3/uL (2.0-7.7); Basophil# 0.07 X10^3/uL; Basophil% 1.2 % (0-1); Eosinophil# 0.26 X10^3/uL; Eosinophils% 4.3 % (0-5); Hematocrit 29.7 % (37-47); Hemoglobin 9.8 g/dL (12.0-15.0); Lymphocyte # 1.27 X10^3/ul (0.83-4.51); Lymphocyte % 21.1 % (19-41); Mean Corpuscular Hgb 29.3 pg (27.0-32.0); Mean Corpuscular Volume 88.7 fL (81-99); Mean Platelet Vol. 9.7 fl (6.2-12.0); Monocyte# 0.67 X10^3/uL; Monocyte% 11.1 % (0-10); NRBC Flagged by Analyzer 0 % (0-5); Neutrophil # 3.74 X10^3/uL (2.7-7.7); Platelet Count 210 K/mm3 (150-450); RBC Distribution Width CV 13.7 % (11.6-14.6); RBC Distribution Width SD 44.5 fl (35.1-43.9); Red Blood Count 3.35 M/mm3 (4.2-5.4)
[2021-06-22 12:57] LABS: Anion Gap 5 (5-15); BUN 26 mg/dL (7-18); Calcium,Total 9.1 mg/dL (8.5-10.1); Chloride 102 mmol/L (98-107); Creatinine, Serum 1.04 mg/dL (0.55-1.02); EST Glomerular Filtration Rate 56 mL/min (>60); Est Glom Filt Rate - Afr Amer 68 mL/min (>60); Estimated Creatinine Clearance 47.88 ml/min; Glucose 378 mg/dL (74-106); Lipase 131 U/L (73-393); Potassium 4.1 mmol/L (3.5-5.1); Sodium Level 131 mmol/L (136-145); Troponin-I HS 10 pg/mL (3.0-54.0)
[2021-06-22 13:40] VITALS: BP 99/57; PULSE 88; RESP 16; O2SAT 98
[2021-06-22 14:36] LABS: Troponin-I HS 9 pg/mL (3.0-54.0)
[2021-06-22 14:53] LABS: Bacteria 0 SEEN /hpf (None Seen); Mucous, Urine 0 SEEN /hpf (<or=2+); Red Blood Cells-Urine 0 SEEN /hpf (0-5)
[2021-06-22 14:54] LABS: Color, Urine Yellow (Yellow); Glucose, Dipstick 250 mg/dl (Normal); Ketone-Dipstick Negative (Negative); Leukocyte Esterase-Dipstick 100 /ul (Negative); Nitrite-Dipstick Negative (Negative); Occult Blood-Urine Negative /ul (Negative); Protein-Dipstick Negative (Negative); Specific Gravity, Urine 1.015 (1.002-1.030); Urine Bilirubin Dipstick Negative (Negative); Urine Clarity Sl. Cloudy (Clear); Urine Urobilinogen Normal (Normal); Urine pH 6.5 (5.0 - 8.0)
[2021-06-22 15:00] VITALS: BP 117/78; PULSE 68; RESP 16; O2SAT 96
[2021-06-22 15:00] LABS: Squamous Epithelial Cells - UA 0-5 SEEN /hpf (5-10); White Blood Cells 0-5 SEEN /hpf (0-5)
[2021-06-22 15:33] VITALS: BP 120/59; PULSE 78; RESP 18; O2SAT 96
== END 2021-06-22 15:42 | disposition home or self-care (01) ==
PROVIDERS: Emergency Provider Emergency Medicine; PCP Internal Medicine; Visit Provider Emergency Medicine
DX: R07.9 Chest pain, unspecified (principal); G35 Multiple sclerosis; J44.9 Chronic obstructive pulmonary disease, unspecified; I11.0 Hypertensive heart disease with heart failure; I50.22 Chronic systolic (congestive) heart failure; I48.0 Paroxysmal atrial fibrillation; E11.9 Type 2 diabetes mellitus without complications; R51.9 Headache, unspecified; M54.9 Dorsalgia, unspecified; R10.9 Unspecified abdominal pain; G89.29 Other chronic pain; F17.210 Nicotine dependence, cigarettes, uncomplicated; Z95.5 Presence of coronary angioplasty implant and graft; I25.10 Atherosclerotic heart disease of native coronary artery without angina pectoris; I25.2 Old myocardial infarction; G25.81 Restless legs syndrome; F32.A Depression, unspecified; F41.9 Anxiety disorder, unspecified; M81.0 Age-related osteoporosis without current pathological fracture; Z79.84 Long term (current) use of oral hypoglycemic drugs; Z79.899 Other long term (current) drug therapy
CPT/HCPCS: 70450; 71045; 80048; 81001; 83690; 84484; 85025; 93005; 96374; 99285; A4216; J2405

== ENCOUNTER 2021-06-25 13:39 | Outpatient (CLI) | payer MEDICARE, MEDICAID, SELFPAY ==
[2016-07-13 11:45] VITALS: BMI 31.4
[2021-06-25 15:47] LABS: Vitamin B12 272 pg/mL (211-911)
[2021-06-25 16:04] LABS: Anion Gap 6 (5-15); BUN 28 mg/dL (7-18); BUN/Creat Ratio 29.3 RATIO (10-20); Calcium,Total 9.4 mg/dL (8.5-10.1); Chloride 103 mmol/L (98-107); Creatinine, Serum 0.96 mg/dL (0.55-1.02); EST Glomerular Filtration Rate 62 mL/min (>60); Est Glom Filt Rate - Afr Amer 75 mL/min (>60); Ferritin 12 ng/mL (8-252); Glucose 289 mg/dL (74-106); Iron 57 ug/dL (50-170); Iron Binding Capacity,Total 501 ug/dL (250-450); PERCENT IRON SATURATION 11.4 % (15.0-55.0); Potassium 5.2 mmol/L (3.5-5.1); Sodium Level 133 mmol/L (136-145); Thyroid Stim Hormone (TSH) 0.52 uIU/mL (0.358-3.74)
== END 2021-06-25 23:59 | disposition home or self-care (01) ==
LOC: BIMLAB 13:40
PROVIDERS: PCP Internal Medicine; Referring Provider Nurse Practitioner Family; Visit Provider Nurse Practitioner Family
DX: I10 Essential (primary) hypertension (principal); E11.9 Type 2 diabetes mellitus without complications; D64.9 Anemia, unspecified; E78.00 Pure hypercholesterolemia, unspecified
CPT/HCPCS: 36415; 80048; 82607; 82728; 82746; 83540; 83550; 84443

== ENCOUNTER 2021-07-03 11:01 | Outpatient (CLI) | payer MEDICARE, SELFPAY ==
[2016-07-13 11:45] VITALS: BMI 31.4
[2021-07-03 12:35] LABS: Anion Gap 7 (5-15); BUN 24 mg/dL (7-18); BUN/Creat Ratio 21.2 RATIO (10-20); Chloride 103 mmol/L (98-107); Creatinine, Serum 1.13 mg/dL (0.55-1.02); EST Glomerular Filtration Rate 51 mL/min (>60); Est Glom Filt Rate - Afr Amer 62 mL/min (>60); Glucose 289 mg/dL (74-106); Sodium Level 134 mmol/L (136-145)
== END 2021-07-03 23:59 | disposition home or self-care (01) ==
LOC: BIMLAB 11:03
PROVIDERS: PCP Internal Medicine; Referring Provider Internal Medicine; Visit Provider Internal Medicine
DX: I10 Essential (primary) hypertension (principal)
CPT/HCPCS: 36415; 80048

== ENCOUNTER 2021-07-30 20:00 | Outpatient (CLI) | payer MEDICARE, MEDICAID, SELFPAY ==
[2016-07-13 11:45] VITALS: BMI 31.4
--- NOTE | 2021-07-30 22:40 | CPS ---
Tristan given at 0. Unable to acknowledge med and document in JUN. Pharmacy called and pharmacist was unsure of the issue, tried to put med order in again but still wouldn't work.
== END 2021-07-30 23:59 | disposition home or self-care (01) ==
PROVIDERS: PCP Internal Medicine; Referring Provider Internal Medicine; Visit Provider Internal Medicine
DX: G47.33 Obstructive sleep apnea (adult) (pediatric) (principal)
CPT/HCPCS: 95811

== ENCOUNTER 2021-07-31 12:52 | Outpatient (CLI) | payer MEDICARE, MEDICAID, SELFPAY ==
[2016-07-13 11:45] VITALS: BMI 31.4
--- NOTE | 2021-07-31 12:58 | ECHOD_ITS ---
Reason For Study: LV THROMBUS Procedure This was a 2D Doppler, Color Flow transthoracic echocardiogram. Contrast injection was performed. Exam performed in department. Left Ventricle Normal LV size. Left ventricular systolic function is lower limits of normal. The estimated ejection fraction is 50 %. Mild segmental systolic dysfunction (see wall motion). [place] : Hypokinetic. Right Ventricle Normal RV size. Normal systolic function. [place]ria Normal left atrium. Normal right atrium. Mitral Valve Normal mitral valve. Tricuspid Valve Normal tricuspid valve. Mild to moderate (1-2+) tricuspid valve insufficiency. Pulmonary artery systolic pressure is 44 mmHg. Aortic Valve Trisinus/trileaflet aortic valve. Pulmonic Valve The pulmonic valve is not well visualized. Great Vessels Normal aortic root. The pulmonary artery is normal size. Normal inferior vena cava. Pericardium/Pleural No pericardial effusion. MMode/2D Measurements & Calculations LVIDd: 5.9 cm IVSd: 1.2 cm Ao root diam: 3.5 cm LVIDs: 3.9 cm LVPWd: 1.2 cm RVDd: 3.1 cm FS: 33.2 % LAV(MOD-bp): 74.1 ml LA A4 area: 18.8 cm2 LA dimension(2D): 5.3 cm LAV(MOD-bp) Indexed: 40.5 ml/m2 LAV(MOD-sp2): 82.0 ml LAV(MOD-sp4): 60.5 ml RA A4 area: 12.1 cm2 Time Measurements MV dec time: 0.22 sec Doppler Measurements & Calculations MV E max arturo: 54.0 cm/sec Lat Peak E' Arturo: 8.0 cm/sec Med Peak E' Arturo: 6.1 cm/sec MV A max arturo: 74.2 cm/sec E/E' lat: 6.8 E/E' med: 8.8 MV E/A: 0.73 Ao V2 max: 112.2 cm/sec LV V1 max: 95.2 cm/sec PA V2 max: 89.3 cm/sec Ao max P.0 mmHg LV V1 max P.6 mmHg TR max arturo: 313.3 cm/sec TR max P.3 mmHg ECHO/Echo Complete W/ Contrast Interpretation Summary Normal LV size. Left ventricular systolic function is lower limits of normal. The estimated ejection fraction is 50 %. Mild segmental systolic dysfunction (see wall motion). [place] : Hypokinetic. Pulmonary artery systolic pressure is 44 mmHg. Contrast injection was performed. Ordering Physician: Fatuma Antoine Referring Physician: Tom Sherman Performed By: Jyoti Gomez RDCS, RVT
== END 2021-07-31 23:59 | disposition home or self-care (01) ==
LOC: CVS 12:57
PROVIDERS: PCP Internal Medicine; Referring Provider Physician Assistant Medical; Visit Provider Physician Assistant Medical
DX: I25.5 Ischemic cardiomyopathy (principal)
CPT/HCPCS: 93306; Q9957; A4216; C8929

== ENCOUNTER 2021-08-21 18:32 | Emergency (ER) | payer MEDICARE, MEDICAID, SELFPAY ==
[2016-07-13 11:45] VITALS: BMI 31.4
[2021-08-21 18:33] VITALS: BP 122/56; PULSE 73; RESP 18; TEMP 36.5; O2SAT 96; BMI 29.0
--- NOTE | 2021-08-21 19:02 | CT_ITS ---
STUDY: CT Abdomen And Pelvis W/O Contrast Injection 08/21/2021 7:54 PM REASON FOR EXAM: Female, 65 years old. ABDOMINAL PAIN Pain: Right flank pain history of kidney stone. HEMATURIA HX:DIABETES,HTN,RENAL FAILURE,KIDNEY STONES,AFIB,CHF,COPD SURGERY:HEART STENTS,LOOP RECORDER,BACK TECHNIQUE: Transaxial images were obtained without oral contrast, and without intravenous contrast. Individualized dose optimization techniques were used for this CT. COMPARISON: 11.20.17. FINDINGS: There are atherosclerotic calcifications of visualized coronary arteries. The visualized portions of the heart are within normal limits. Normal liver. Normal gallbladder and extrahepatic biliary system. Normal spleen. Normal pancreas. Normal bilateral adrenal glands. No acute findings of the right kidney. No acute findings of the left kidney. Normal visualized stomach. Normal small intestine. Stool throughout the colon. The appendix is visualized and appears normal. There are calcifications of the abdominal aorta. This is consistent for atherosclerotic disease. There is no abdominal aortic aneurysm. Normal inferior vena cava. Subcentimeter mesenteric lymph nodes. Normal urinary bladder. The uterus is lobulated in contour. There are multiple partially calcified masses in the uterus. This is consistent for a fibroid/ myomatous uterus. Normal abdominal wall. There are diffuse degenerative changes of the visualized lumbar spine. There is scoliosis of the lumbar spine. There is bilateral neural foraminal stenosis at L4-5 and L5-S1. Calcified subcutaneous gluteal calcifications. Lumbar laminectomy changes. CT/Abdomen/Pelvis without Cont IMPRESSION: (NOT LISTED IN ORDER OF SIGNIFICANCE) There are no renal stones. There is no hydronephrosis. Mild constipation. Other findings as above. Electronically Signed: Efren Lockhart MD at 19:57 EDT ,
--- NOTE | 2021-08-21 19:03 | EX.ED.DYSGE1 ---
HPI History of Present Illness Chief Complaint: General Illness Informant: patient Onset/Context/Timing Onset: Today and Hours Context: Gradual Onset Timing: Continuous Current Severity: Moderate Maximum Severity: Moderate Narrative Narrative: 65-year-old female history of NM, CAD, CHF. Also COPD, diabetes, A. fib and hypertension. Currently on no blood thinner. She previously was on Eliquis was taken off of it 2 weeks ago. States today she has had right flank pain. Denies any falls or trauma. Had some gross hematuria when urinating. She has had a prior kidney stone in the past never needed surgery to have those removed. Nausea no vomiting took Zofran at home which improved it but the nausea has returned. She has had dysuria in the last 1 to 2 days. No fever or chills. 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 Cervical spinal stenosis Chronic anticoagulation Chronic back pain Chronic neck pain with history of cervical spinal surgery Chronic systolic (congestive) heart failure Closed right tibial fracture COPD (chronic obstructive pulmonary disease) Diabetes mellitus type 2 in nonobese Essential (primary) hypertension Flank pain Fracture of distal end of right tibia Hematemesis Hiatal hernia History of peptic ulcer disease History of ST elevation myocardial infarction (STEMI) Hyperglycemia due to type 2 diabetes mellitus Hyperkalemia IBS (irritable bowel syndrome) Irritable bowel syndrome with diarrhea Ischemic cardiomyopathy Left ventricular hypertrophy Major depression Multiple sclerosis Nicotine abuse Nondisplaced pilon fracture of right tibia, initial encounter for closed fracture BRYAN (obstructive sleep apnea) Osteoporosis Pain of right lower extremity Paroxysmal atrial fibrillation RLS (restless legs syndrome) Suicidal ideation Tachycardia Takotsubo syndrome Type 2 diabetes mellitus Vitamin B12 deficiency Home Medications albuterol sulfate 2 puff INHALATION Q6H PRN PRN 10/23/17 [History Last Taken 06/08/19] teriflunomide 14 mg PO DAILY 09/20/19 [History Last Taken 08/14/20 09:00] modafinil 200 mg PO DAILY 12/12/19 [History Last Taken 08/14/20 09:00] acetaminophen 1,000 mg PO TID PRN #1 tablet 07/29/20 [Rx Last Taken Unknown] blood sugar diagnostic #100 each 08/10/20 [Rx Last Taken Unknown] ascorbic acid (vitamin C) 500 mg PO DAILY #30 tab.chew 08/17/20 [Rx Last Taken Unknown] atorvastatin 40 mg tablet 40 mg PO DAILY #30 tab 09/18/20 [Rx Last Taken Unknown] cholecalciferol (vitamin D3) 25 mcg (1,000 unit) capsule 50 mcg PO DAILY cap 09/18/20 [History Last Taken Unknown] acidophilus-pectin, citrus 1 cap PO DAILY 09/23/20 [History Last Taken Unknown] diclofenac potassium 50 mg PO BID #20 tab 11/12/20 [Rx Last Taken Unknown] denosumab 60 mg/mL subcutaneous syringe 60 mg SUBCUT [id number] #1 ml 12/25/20 [Rx Last Taken Unknown] dicyclomine 20 mg tablet 20 mg PO BID PRN #180 tablet 04/15/21 [Rx Last Taken Unknown] amlodipine 2.5 mg tablet 2.5 mg PO DAILY #90 tab 04/22/21 [Rx Last Taken Unknown] glimepiride 4 mg tablet 4 mg PO BID #60 tab 04/23/21 [Rx Last Taken Unknown] pioglitazone 30 mg tablet 30 mg PO DAILY #30 tab 04/23/21 [Rx Last Taken Unknown] carvedilol 25 mg tablet 25 mg PO BID #180 tab 05/21/21 [Rx Last Taken Unknown] donepezil 10 mg tablet 20 mg PO DAILY #180 tab 05/28/21 [Rx Last Taken Unknown] calcium carbonate 600 mg calcium (1,500 mg) tablet 600 mg PO BID #180 tab 06/18/21 [Rx Last Taken Unknown] duloxetine 30 mg capsule,delayed release 30 mg PO BID #180 cap 06/21/21 [Rx Last Taken Unknown] ondansetron 4 mg disintegrating tablet 4 mg PO Q8H PRN #30 tab 06/25/21 [Rx Last Taken Unknown] tizanidine 2 mg tablet 2 mg PO QHS PRN #30 tab 06/25/21 [Rx Last Taken Unknown] ferrous sulfate 325 mg (65 mg iron) tablet 325 mg PO DAILY #90 tab 06/26/21 [Rx Last Taken Unknown] eluxadoline 100 mg tablet 100 mg PO BID tab 07/03/21 [History Last Taken Unknown] lisinopril 20 mg tablet 20 mg PO BID tab 07/03/21 [History Last Taken Unknown] sitagliptin 100 mg tablet 100 mg PO DAILY #30 tab 07/03/21 [Rx Last Taken Unknown] vibegron 75 mg tablet 75 mg PO DAILY tab 07/03/21 [History Last Taken Unknown] hydroxyzine HCl 50 mg tablet 50 mg PO TID #90 tab 07/08/21 [Rx Last Taken Unknown] sucralfate 1 gram tablet 1 g PO 4X/DAY #120 tablet 07/08/21 [Rx Last Taken Unknown] isosorbide mononitrate 30 mg tablet,extended release 24 hr 60 mg PO BID #360 tab 07/09/21 [Rx Last Taken Unknown] potassium chloride 20 mEq tablet,extended release 20 meq PO DAILY #90 tab 07/16/21 [Rx Last Taken Unknown] nitroglycerin 0.4 mg sublingual tablet 0.4 mg SL Q5-15M #25 tab 08/06/21 [Rx Last Taken Unknown] ropinirole 1 mg tablet 1 mg PO DAILY #90 tab 08/08/21 [Rx Last Taken Unknown] ropinirole 2 mg tablet 2 mg PO QHS #90 tab 08/08/21 [Rx Last Taken Unknown] Allergy/AdvReac Type Severity Reaction Status Date / Time indomethacin [From Indocin] Allergy Hives Verified 08/21/21 18:38 indomethacin sodium Allergy Hives Verified 08/21/21 18:38 [From Indocin] iodine Allergy Hives Verified 08/21/21 18:38 propoxyphene napsylate Allergy Out of Verified 08/21/21 18:38 [From Darvocet-N] control aripiprazole [From Abilify] AdvReac Other Verified 08/21/21 18:38 aspirin AdvReac Upset Verified 08/21/21 18:38 Stomach clindamycin AdvReac Nausea Verified 08/21/21 18:38 metformin AdvReac Other Verified 08/21/21 18:38 sumatriptan [From Imitrex] AdvReac Vomiting Verified 08/21/21 18:38 Family History Father Cancer Lung cancer Mother Cancer Pancreatic cancer Surgical History History of amputation of left great toe History of back surgery History of cervical discectomy History of coronary artery stent placement (04/08/16) History of endoscopy History of left heart catheterization (09/25/20) History of left knee surgery History of loop recorder (06/2014) History of tonsillectomy and adenoidectomy Social History household members: none Smoking Status: Current every day smoker tobacco type: cigarettes alcohol intake: never substance use type: does not use caffeine: Yes Type: coffee Number of servings: 1 what type of physical activity do you participate in: none and other details: Physical Therapy ROS ROS ED ROS Narrative Nausea. Right flank pain. Review of Systems ROS Unobtainable: Denies due to encephalopathy Constitutional Constitutional ED: Denies chills or fever(s) Eyes Eyes: Denies change in vision ENT ENT ED: Denies ear pain Cardiovascular Cardiovascular: Denies chest pain Respiratory/Chest Respiratory/Chest: Denies cough, dyspnea or sputum Gastrointestinal Gastrointestinal: Reports abdominal pain and nausea; Denies constipation, diarrhea, melena or vomiting Genitourinary Genitourinary ED: Reports dysuria and hematuria Musculoskeletal Musculoskeletal: Denies myalgias Integumentary Denies rash Neurologic Neurologic: Denies headache(s) Psychiatric Psychiatric: Denies depression Endocrine Endocrinology: Denies polyuria Allergic/Immunologic Allergic/Immunologic ED: Denies urticaria EXAM Physical Exam Narrative Exam Narrative: 65-year-old female vital signs stable afebrile. H EENT exam unremarkable except left ear obstructed with cerumen. Posterior pharynx normal. Neck nontender. Lungs are clear. Heart regular rate and rhythm rate about 70 no murmur. Abdomen soft nontender normal bowel sounds no peritoneal signs. No pulsatile mass. Patient moving all 4 extremities. Calves are nontender without edema. She has right CVA tenderness. Neurologically she is awake and alert. Const Vital Signs: 08/21/21 18:33 Temperature 97.7 F L Temperature Source Temporal Pulse Rate 73 Respiratory Rate 18 Blood Pressure 122/56 H Blood Pressure Mean 78 Pulse Ox 96 Oxygen Delivery Method Room Air MDM MDM MDM Narrative Medical decision making narrative: 65-year-old with right flank pain. CAT scan labs pending. She be treated with morphine and Zofran for pain and nausea. Repeat exam at 8:34 PM patient doing well. She and I went over her test results. She will be discharged to home. Lab Data Attestation: I reviewed the patient's lab results. Lab results narrative: CBC normal white count of 4 H&H 11.6 and 36. Platelets 211. Electrolytes show a gap of 5 normal BUN and creatinine. Normal liver enzymes. Glucose 136. UA 5-10 whites 5-10 epithelial saucers contaminated. No RBCs. No nitrites. And rare bacteria. This is a contaminated specimen I do not think a UTI. CAT scan shows constipation but no stones. No hydronephrosis. Read by the radiologist and reviewed by me. Labs: Laboratory Results - last 24 hr 08/21/21 08/21/21 08/21/21 19:10 19:15 19:15 WBC 4.6 RBC 4.08 L Hgb 11.6 L Hct 36.2 L MCV 88.7 MCH 28.4 MCHC 32.0 RDW Std Deviation 52.4 H RDW Coeff of Yeimi 16.0 H Plt Count 211 MPV 9.7 Immature Gran % (Auto) 0.200 Neut % (Auto) 45.0 L Lymph % (Auto) 35.1 [place] % (Auto) 13.4 H Eos % (Auto) 4.6 Baso % (Auto) 1.7 H Absolute Neuts (auto) 2.1 Absolute Lymphs (auto) 1.62 Nucleated RBC % 0 Sodium 138 Potassium 3.9 Chloride 107 Carbon Dioxide 26.0 Anion Gap 5 BUN 14 Creatinine 0.80 Estim Creat Clear Calc 62.24 Est GFR (MDRD) Af Amer 93 Est GFR (MDRD) Non-Af 76 BUN/Creatinine Ratio 17.6 Glucose 136 H Calcium 9.9 Total Bilirubin 0.20 AST 13 L ALT 16 Alkaline Phosphatase 76 Total Protein 6.3 L Albumin 3.1 L Globulin 3.2 Albumin/Globulin Ratio 1.0 Urine Color Yellow Urine Clarity Sl. Cloudy Urine pH 6.0 Ur Specific [place] 1.010 Urine Protein Negative Urine Glucose (UA) Normal Urine Ketones Negative Urine Occult Blood 10 H Urine Nitrite Negative Urine Bilirubin Negative Urine Urobilinogen Normal Ur Leukocyte Esterase 500 H Urine RBC 0 SEEN Urine WBC 5-10 SEEN Ur Squamous Epith Cells 5-10 SEEN Urine Bacteria RARE Urine Mucus 0 SEEN Radiography Diagnostic Testing: Clinical Impression(s) from Imaging Studies Abdomen/Pelvis CT 08/21/21 19:02 IMPRESSION: (NOT LISTED IN ORDER OF SIGNIFICANCE) There are no renal stones. There is no hydronephrosis. Mild constipation. Other findings as above. Electronically Signed: Efren Lockhart MD at 19:57 EDT , Discharge Plan Triage Chief Complaint: General Illness ED Provider: Mark Anthony Blackburn Dx/Rx/DC Orders Clinical Impression: Flank pain, acute, History of kidney stones, History of diabetes mellitus, History of atrial fibrillation, Constipation Instructions: ED Constipation (Adult), ED Flank Pain, Uncertain Cause Prescriptions: No Action cholecalciferol (vitamin D3) 25 mcg (1,000 unit) capsule 50 mcg PO DAILY RF: 0 Prolia 60 mg/mL syringe 60 mg subcut [id number] Qty: 1 RF: 1 nitroglycerin 0.4 mg tablet, sublingual 0.4 mg SL Q5-15M Qty: 25 RF: 3 Viberzi 100 mg tablet 100 mg PO BID RF: 0 Gemtesa 75 mg tablet 75 mg PO DAILY RF: 0 lisinopril 20 mg tablet 20 mg PO BID RF: 0 sitagliptin 100 mg tablet 100 mg PO DAILY Qty: 30 RF: 1 ondansetron 4 mg tablet,disintegrating 4 mg PO Q8H PRN (Reason: nausea and vomiting) Qty: 30 RF: 1 tizanidine 2 mg tablet 2 mg PO QHS PRN (Reason: muscle spasticity) Qty: 30 RF: 0 ropinirole 1 mg tablet 1 mg PO DAILY Qty: 90 RF: 2 ropinirole 2 mg tablet 2 mg PO QHS Qty: 90 RF: 1 albuterol sulfate 1 INHALER inhaler 2 puff INHALATION Q6H PRN PRN (Reason: Sob &/Or Wheezing) RF: 0 teriflunomide 14 mg tablet 14 mg PO DAILY RF: 0 modafinil 200 MG tablet 200 mg PO DAILY RF: 0 acetaminophen 500 MG tablet 1,000 mg PO TID PRN (Reason: pain 1-02/03) Qty: 1 RF: 0 ascorbic acid (vitamin C) 500 MG tablet,chewable 500 mg PO DAILY Qty: 30 RF: 0 acidophilus-pectin, citrus 100 million cell-10 mg Capsule 1 cap PO DAILY RF: 0 diclofenac potassium 50 mg tablet 50 mg PO BID Qty: 20 RF: 0 (DME) Accu-Chek Ada Plus test strp Strip See Rx Instructions .ROUTE .MEDSUPPLY Qty: 100 RF: 3 atorvastatin 40 mg tablet 40 mg PO DAILY Qty: 30 RF: 11 dicyclomine 20 mg tablet 20 mg PO BID PRN (Reason: abdominal discomfort) Qty: 180 RF: 2 amlodipine [Norvasc] 2.5 mg tablet 2.5 mg PO DAILY Qty: 90 RF: 3 pioglitazone 30 mg tablet 30 mg PO DAILY Qty: 30 RF: 3 glimepiride 4 mg tablet 4 mg PO BID Qty: 60 RF: 3 carvedilol 25 mg tablet 25 mg PO BID Qty: 180 RF: 3 donepezil [Aricept] 10 mg tablet 20 mg PO DAILY Qty: 180 RF: 1 calcium carbonate 600 mg calcium (1,500 mg) tablet 600 mg PO BID Qty: 180 RF: 1 duloxetine [Cymbalta] 30 mg capsule,delayed release(DR/EC) 30 mg PO BID Qty: 180 RF: 2 ferrous sulfate 325 mg (65 mg iron) tablet 325 mg PO DAILY Qty: 90 RF: 3 sucralfate 1 gram tablet 1 g PO 4X/DAY Qty: 120 RF: 1 hydroxyzine HCl 50 mg tablet 50 mg PO TID Qty: 90 RF: 1 isosorbide mononitrate 30 mg tablet extended release 24 hr 60 mg PO BID Qty: 360 RF: 3 potassium chloride 20 mEq tablet extended release 20 meq PO DAILY Qty: 90 RF: 0 Primary Care Provider: Tom Sherman Referrals: Tom Sherman MD [Primary Care Provider] - 3-5 Days if not improving Activity Restrictions/Additional Instructions: Your labs and CAT scan are unremarkable other than you are constipated. There is no acute kidney stone. There is no urinary tract infection. For the constipation make sure you are drinking plenty of fluids and taking in plenty of fiber including apples, fruits, vegetables and prune juice. Follow-up with your doctor as needed. Disposition Disposition: Home, Self Care
[2021-08-21] MEDS: Ondansetron 4 MG/2 ML Vial IV (19:16)
[2021-08-21] MEDS: Morphine 4 MG/ML Syringe 6 MG IV (19:16)
[2021-08-21 19:25] LABS: Mucous, Urine 0 SEEN /hpf (<or=2+); Red Blood Cells-Urine 0 SEEN /hpf (0-5)
[2021-08-21 19:27] LABS: Absolute Lymphocyte Count 1.62 X10^3/uL (0.83-4.51); Absolute Neutrophil Count 2.1 X10^3/uL (2.0-7.7); Basophil# 0.08 X10^3/uL; Basophil% 1.7 % (0-1); Eosinophil# 0.21 X10^3/uL; Eosinophils% 4.6 % (0-5); Hematocrit 36.2 % (37-47); Hemoglobin 11.6 g/dL (12.0-15.0); Lymphocyte # 1.62 X10^3/ul (0.83-4.51); Lymphocyte % 35.1 % (19-41); Mean Corpuscular Hgb 28.4 pg (27.0-32.0); Mean Corpuscular Volume 88.7 fL (81-99); Mean Platelet Vol. 9.7 fl (6.2-12.0); Monocyte# 0.62 X10^3/uL; Monocyte% 13.4 % (0-10); NRBC Flagged by Analyzer 0 % (0-5); Neutrophil # 2.07 X10^3/uL (2.7-7.7); Platelet Count 211 K/mm3 (150-450); RBC Distribution Width SD 52.4 fl (35.1-43.9); Red Blood Count 4.08 M/mm3 (4.2-5.4); White Blood Count 4.6 K/mm3 (4.4-11.0)
[2021-08-21 19:34] LABS: Color, Urine Yellow (Yellow); Glucose, Dipstick Normal (Normal); Ketone-Dipstick Negative (Negative); Leukocyte Esterase-Dipstick 500 /ul (Negative); Nitrite-Dipstick Negative (Negative); Occult Blood-Urine 10 /ul (Negative); Protein-Dipstick Negative (Negative); Urine Bilirubin Dipstick Negative (Negative); Urine Clarity Sl. Cloudy (Clear); Urine Urobilinogen Normal (Normal)
[2021-08-21 19:41] LABS: Squamous Epithelial Cells - UA 5-10 SEEN /hpf (5-10); White Blood Cells 5-10 SEEN /hpf (0-5)
[2021-08-21 19:42] LABS: Bacteria RARE /hpf (None Seen)
[2021-08-21 19:47] LABS: AST(SGOT) 13 U/L (15-37); Alanine Aminotransfer ALT/SGPT 16 U/L (13-56); Albumin, Serum 3.1 g/dL (3.2-5.0); Alkaline Phosphatase 76 U/L (45-117); Anion Gap 5 (5-15); BUN 14 mg/dL (7-18); BUN/Creat Ratio 17.6 RATIO (10-20); Calcium,Total 9.9 mg/dL (8.5-10.1); Chloride 107 mmol/L (98-107); EST Glomerular Filtration Rate 76 mL/min (>60); Est Glom Filt Rate - Afr Amer 93 mL/min (>60); Estimated Creatinine Clearance 62.24 ml/min; Globulin 3.2 g/dL (2.2-4.2); Glucose 136 mg/dL (74-106); Potassium 3.9 mmol/L (3.5-5.1); Protein, Total 6.3 g/dL (6.4-8.2); Sodium Level 138 mmol/L (136-145)
[2021-08-21 20:42] VITALS: BP 124/76; PULSE 81; RESP 14; O2SAT 98
== END 2021-08-21 20:42 | disposition home or self-care (01) ==
PROVIDERS: Emergency Provider Emergency Medicine; PCP Internal Medicine; Visit Provider Emergency Medicine
DX: K59.00 Constipation, unspecified (principal); J44.9 Chronic obstructive pulmonary disease, unspecified; I11.0 Hypertensive heart disease with heart failure; I50.22 Chronic systolic (congestive) heart failure; I48.91 Unspecified atrial fibrillation; E11.9 Type 2 diabetes mellitus without complications; I25.10 Atherosclerotic heart disease of native coronary artery without angina pectoris; I25.5 Ischemic cardiomyopathy; I25.2 Old myocardial infarction; G25.81 Restless legs syndrome; M81.0 Age-related osteoporosis without current pathological fracture; F32.9 Major depressive disorder, single episode, unspecified; F41.9 Anxiety disorder, unspecified; F17.210 Nicotine dependence, cigarettes, uncomplicated; Z79.84 Long term (current) use of oral hypoglycemic drugs; Z79.899 Other long term (current) drug therapy; Z87.442 Personal history of urinary calculi
CPT/HCPCS: 74176; 80053; 81001; 85025; 96374; 96375; 99284; A4216; J2405

== ENCOUNTER 2021-10-07 17:44 | Emergency (ER) | payer MEDICARE, MEDICAID, SELFPAY ==
[2016-07-13 11:45] VITALS: BMI 31.4
[2021-10-07 17:45] VITALS: BP 114/60; PULSE 75; RESP 14; TEMP 36.6; O2SAT 97; BMI 32.3
--- NOTE | 2021-10-07 19:38 | EDS_ITS ---
HPI History of Present Illness Chief Complaint: Dizziness Detail of Chief Complaint: Vertigo Informant: patient Onset/Context/Timing Onset: Today and Hours Context: Sudden Onset Timing: Intermittent (30 to 60 seconds) Quality: Head swimming and spinning Current Severity: Gone (Vertigo) Maximum Severity: Severe Worsened by: Change in Relieved by: Remaining still and closing her eyes Associated Symptoms Associated Symptoms: Nausea Narrative Narrative: Patient is an elderly woman with history of type 2 diabetes, coronary disease, hyperlipidemia, on blood pressure medicine, COPD and history of neural thrombus who presents with transient vertigo that is related to change in position. She denies double vision or blurred vision. Denies ringing or ears or decreased hearing. Denies trouble with speech or swallowing. She denies cardiac respiratory symptoms. Her only GI symptom is nausea. She denies urologic symptoms. She denies motor weakness or loss of sensation. Prior similar symptoms: No Recent Illness/Hospitalization: No [facility] Medical History Anemia Anemia Anxiety Apical mural thrombus with acute [place] Atherosclerotic heart disease of [place] coronary artery without angina pectoris Cervical spinal stenosis Chronic anticoagulation Chronic back pain Chronic neck pain with history of cervical spinal surgery Chronic systolic (congestive) heart failure Closed right tibial fracture COPD (chronic obstructive pulmonary disease) Diabetes mellitus type 2 in nonobese Essential (primary) hypertension Flank pain Fracture of distal end of right tibia Hematemesis Hiatal hernia History of peptic ulcer disease History of ST elevation myocardial infarction (STEMI) Hyperglycemia due to type 2 diabetes mellitus Hyperkalemia IBS (irritable bowel syndrome) Irritable bowel syndrome with diarrhea Ischemic cardiomyopathy Left ventricular hypertrophy Major depression Multiple sclerosis Nicotine abuse Nondisplaced pilon fracture of right tibia, initial encounter for closed fracture BRYAN (obstructive sleep apnea) Osteoporosis Pain of right lower extremity Paroxysmal atrial fibrillation RLS (restless legs syndrome) Suicidal ideation Tachycardia Takotsubo syndrome Type 2 diabetes mellitus Vitamin B12 deficiency Home Medications teriflunomide 14 mg PO DAILY 09/20/19 [History Last Taken 08/14/20 09:00] modafinil 200 mg PO DAILY 12/12/19 [History Last Taken 08/14/20 09:00] acetaminophen 1,000 mg PO TID PRN #1 tablet 07/29/20 [Rx Last Taken Unknown] blood sugar diagnostic #100 each 08/10/20 [Rx Last Taken Unknown] atorvastatin 40 mg tablet 40 mg PO DAILY #30 tab 09/18/20 [Rx Last Taken Unknown] cholecalciferol (vitamin D3) 25 mcg (1,000 unit) capsule 50 mcg PO DAILY cap 09/18/20 [History Last Taken Unknown] diclofenac potassium 50 mg PO BID #20 tab 11/12/20 [Rx Last Taken Unknown] denosumab 60 mg/mL subcutaneous syringe 60 mg SUBCUT [id number] #1 ml 12/25/20 [Rx Last Taken Unknown] dicyclomine 20 mg tablet 20 mg PO BID PRN #180 tablet 04/15/21 [Rx Last Taken Unknown] amlodipine 2.5 mg tablet 2.5 mg PO DAILY #90 tab 04/22/21 [Rx Last Taken Unknown] carvedilol 25 mg tablet 25 mg PO BID #180 tab 05/21/21 [Rx Last Taken Unknown] calcium carbonate 600 mg calcium (1,500 mg) tablet 600 mg PO BID #180 tab 06/18/21 [Rx Last Taken Unknown] ondansetron 4 mg disintegrating tablet 4 mg PO Q8H PRN #30 tab 06/25/21 [Rx Last Taken Unknown] tizanidine 2 mg tablet 2 mg PO QHS PRN #30 tab 06/25/21 [Rx Last Taken Unknown] ferrous sulfate 325 mg (65 mg iron) tablet 325 mg PO DAILY #90 tab 06/26/21 [Rx Last Taken Unknown] lisinopril 20 mg tablet 20 mg PO BID tab 07/03/21 [History Last Taken Unknown] vibegron 75 mg tablet 75 mg PO DAILY tab 07/03/21 [History Last Taken Unknown] isosorbide mononitrate 30 mg tablet,extended release 24 hr 60 mg PO BID #360 tab 07/09/21 [Rx Last Taken Unknown] potassium chloride 20 mEq tablet,extended release 20 meq PO DAILY #90 tab 07/16/21 [Rx Last Taken Unknown] nitroglycerin 0.4 mg sublingual tablet 0.4 mg SL Q5-15M #25 tab 08/06/21 [Rx Last Taken Unknown] ropinirole 1 mg tablet 1 mg PO DAILY #90 tab 08/08/21 [Rx Last Taken Unknown] ropinirole 2 mg tablet 2 mg PO QHS #90 tab 08/08/21 [Rx Last Taken Unknown] donepezil 10 mg tablet 20 mg PO DAILY #180 tab 09/05/21 [Rx Last Taken Unknown] hydroxyzine HCl 50 mg tablet 50 mg PO TID #90 tab 09/05/21 [Rx Last Taken Unknown] pioglitazone 30 mg tablet 30 mg PO DAILY #90 tab 09/05/21 [Rx Last Taken Unknown] sitagliptin 100 mg tablet 100 mg PO DAILY #30 tab 09/05/21 [Rx Last Taken Unknown] sucralfate 1 gram tablet 1 g PO 4X/DAY #120 tablet 09/05/21 [Rx Last Taken Unknown] ascorbic acid (vitamin C) 500 mg chewable tablet 500 mg PO DAILY #30 tab.chew 09/12/21 [Rx Last Taken Unknown] glimepiride 4 mg tablet 4 mg PO BID #60 tab 09/12/21 [Rx Last Taken Unknown] acidophilus 100 million cell-pectin, citrus 10 mg capsule 1 cap PO DAILY #90 cap 09/20/21 [Rx Last Taken Unknown] albuterol sulfate 90 mcg/actuation aerosol inhaler 2 puff INHALATION Q6H PRN PRN #8.5 g 09/20/21 [Rx Last Taken Unknown] duloxetine 30 mg capsule,delayed release 30 mg PO BID #180 cap 09/20/21 [Rx Last Taken Unknown] eluxadoline 100 mg tablet 100 mg PO BID #60 tab 09/20/21 [Rx Last Taken Unknown] ondansetron 4 mg PO Q8H PRN PRN #10 tab 10/07/21 [Rx Last Taken Unknown] Allergy/AdvReac Type Severity Reaction Status Date / Time indomethacin [From Indocin] Allergy Hives Verified 09/20/21 10:08 indomethacin sodium Allergy Hives Verified 09/20/21 10:08 [From Indocin] iodine Allergy Hives Verified 09/20/21 10:08 propoxyphene napsylate Allergy Out of Verified 09/20/21 10:08 [From Darvocet-N] control aripiprazole [From Abilify] AdvReac Other Verified 09/20/21 10:08 aspirin AdvReac Upset Verified 09/20/21 10:08 Stomach clindamycin AdvReac Nausea Verified 09/20/21 10:08 metformin AdvReac Other Verified 09/20/21 10:08 sumatriptan [From Imitrex] AdvReac Vomiting Verified 09/20/21 10:08 Family History Father Cancer Lung cancer Mother Cancer Pancreatic cancer Surgical History History of amputation of left great toe History of back surgery History of cervical discectomy History of coronary artery stent placement (04/08/16) History of endoscopy History of left heart catheterization (09/25/20) History of left knee surgery History of loop recorder (06/2014) History of tonsillectomy and adenoidectomy Social History household members: none Smoking Status: Current every day smoker tobacco type: cigarettes alcohol intake: never substance use type: does not use caffeine: Yes Type: coffee Number of servings: 1 what type of physical activity do you participate in: none and other details: Physical Therapy ROS ROS ED Constitutional Constitutional ED: Denies chills, fever(s), subjective, sweats or weight loss Eyes Eyes: Denies blurry vision, change in vision or diplopia ENT ENT ED: Denies ear pain, rhinorrhea or sore throat Cardiovascular Cardiovascular: Denies chest pain, orthopnea, palpitations, paroxysmal nocturnal dyspnea or racing heartbeat Respiratory/Chest Respiratory/Chest: Denies cough, dyspnea, dyspnea on exertion, orthopnea or paroxysmal nocturnal dyspnea Gastrointestinal Gastrointestinal: Reports nausea; Denies abdominal pain, constipation, diarrhea, melena or vomiting Genitourinary Genitourinary ED: Denies dysuria, hematuria or urinary frequency Musculoskeletal Musculoskeletal: Denies arthralgias, back pain, myalgias or neck pain Integumentary Denies rash Neurologic Neurologic: Reports other Details: Vertigo that is positional ; Denies headache(s), paresthesias or weakness Endocrine Endocrinology: Denies polydipsia, polyphagia or polyuria Allergic/Immunologic Allergic/Immunologic ED: Denies mouth swelling, tongue swelling or urticaria EXAM Physical Exam Const Vital Signs: 10/07/21 17:45 10/07/21 17:57 Temperature 97.8 F Temperature Source Temporal Pulse Rate 75 Respiratory Rate 14 Respiratory Effort Normal Respiratory Pattern Normal Blood Pressure 114/60 Blood Pressure Mean 78 Pulse Ox 97 Oxygen Delivery Method Room Air Positive well nourished, well developed and obese General Appearance ED: well developed and NAD; Negative for cyanotic, diaphoretic or pallor Nutritional Appearance: obese HEENT Reports TM's clear and moist mucous membranes HEENT Narrative: Patient has multiple scabs on her face. Nares patent. Uvula midline. There is no erythema or exudate of posterior pharynx. There is no angioedema. Negative for trauma or tenderness Tympanic Membrane ED: Yes TM's clear Eyes PERRL and EOMs intact bilaterally General Eye ED: Negative for pale conjunctiva or scleral icterus Neck no lymphadenopathy, supple and no JVD Resp normal respiratory effort and clear to auscultation bilaterally Cardio regular rate, regular rhythm, S1 normal heart sound, S2 normal heart sound and no murmurs GI normal to inspection, nondistended, normoactive bowel sounds, non-tender and non-distended Palpation: soft Back/Spine no CVA tenderness Cervical Spine: Negative for cervical spine tenderness Thoracic Spine / Upper Back: Negative for thoracic spinal tenderness or paraspinal muscle tenderness Extremity normal to inspection General Extremety ED: Negative for edema or tenderness General Extremity: Negative for edema Neuro oriented x3, CN's II-XII intact bilaterally and no sensory deficits noted Neuro Narrative: There is no dysmetria. DTRs are 2+ at the bicep, brachialis, tricep, patella and ankle. There is no clonus or Babinski sign. The eye askew test was negative. The hint test was negative. Linden-Hallpike maneuver was positive. Symptoms are worse when patient's head was to the right. Sensorium / Orientation: alert Motor Exam: strength 5/5 throughout Psych mental status grossly normal Skin no rashes or lesions noted, No no wounds and skin turgor normal General Skin Exam: Negative for jaundice or pallor MDM MDM MDM Narrative Medical decision making narrative: She has history and physical is consistent with paroxysmal benign positional vertigo. Will perform Jose maneuver once the apartment acuity decreases and there is a 10 to 20-minute opportunity for me to perform. Jose maneuver was performed. Patient had resolution of her symptoms. Will reassess in 5 to 10 minutes. If symptoms do not recur will discharge to home Discharge Plan Triage Chief Complaint: Dizziness ED Provider: Michael Alford Dx/Rx/DC Orders Clinical Impression: Benign paroxysmal positional vertigo due to bilateral vestibular disorder Instructions: ED BPV Vertigo Prescriptions: New ondansetron [ondansetron] 4 MG tablet 4 mg PO Q8H PRN PRN (Reason: Nausea) Qty: 10 RF: 0 No Action cholecalciferol (vitamin D3) 25 mcg (1,000 unit) capsule 50 mcg PO DAILY RF: 0 Prolia 60 mg/mL syringe 60 mg subcut [id number] Qty: 1 RF: 1 nitroglycerin 0.4 mg tablet, sublingual 0.4 mg SL Q5-15M Qty: 25 RF: 3 Gemtesa 75 mg tablet 75 mg PO DAILY RF: 0 lisinopril 20 mg tablet 20 mg PO BID RF: 0 ondansetron 4 mg tablet,disintegrating 4 mg PO Q8H PRN (Reason: nausea and vomiting) Qty: 30 RF: 1 tizanidine 2 mg tablet 2 mg PO QHS PRN (Reason: muscle spasticity) Qty: 30 RF: 0 ropinirole 1 mg tablet 1 mg PO DAILY Qty: 90 RF: 2 ropinirole 2 mg tablet 2 mg PO QHS Qty: 90 RF: 1 eluxadoline 100 mg tablet 100 mg PO BID Qty: 60 RF: 0 albuterol sulfate 90 mcg/actuation HFA aerosol inhaler 2 puff INHALATION Q6H PRN PRN (Reason: Sob &/Or Wheezing) Qty: 8.5 RF: 2 duloxetine [Cymbalta] 30 mg capsule,delayed release(DR/EC) 30 mg PO BID Qty: 180 RF: 2 acidophilus-pectin, citrus 100 million cell-10 mg capsule 1 cap PO DAILY Qty: 90 RF: 3 teriflunomide 14 mg tablet 14 mg PO DAILY RF: 0 modafinil 200 MG tablet 200 mg PO DAILY RF: 0 acetaminophen 500 MG tablet 1,000 mg PO TID PRN (Reason: pain 1-02/03) Qty: 1 RF: 0 diclofenac potassium 50 mg tablet 50 mg PO BID Qty: 20 RF: 0 (DME) Accu-Chek Ada Plus test strp Strip See Rx Instructions .ROUTE .MEDSUPPLY Qty: 100 RF: 3 atorvastatin 40 mg tablet 40 mg PO DAILY Qty: 30 RF: 11 dicyclomine 20 mg tablet 20 mg PO BID PRN (Reason: abdominal discomfort) Qty: 180 RF: 2 amlodipine [Norvasc] 2.5 mg tablet 2.5 mg PO DAILY Qty: 90 RF: 3 carvedilol 25 mg tablet 25 mg PO BID Qty: 180 RF: 3 calcium carbonate 600 mg calcium (1,500 mg) tablet 600 mg PO BID Qty: 180 RF: 1 ferrous sulfate 325 mg (65 mg iron) tablet 325 mg PO DAILY Qty: 90 RF: 3 isosorbide mononitrate 30 mg tablet extended release 24 hr 60 mg PO BID Qty: 360 RF: 3 potassium chloride 20 mEq tablet extended release 20 meq PO DAILY Qty: 90 RF: 0 sitagliptin 100 mg tablet 100 mg PO DAILY Qty: 30 RF: 1 sucralfate 1 gram tablet 1 g PO 4X/DAY Qty: 120 RF: 2 pioglitazone 30 mg tablet 30 mg PO DAILY Qty: 90 RF: 1 donepezil [Aricept] 10 mg tablet 20 mg PO DAILY Qty: 180 RF: 1 hydroxyzine HCl 50 mg tablet 50 mg PO TID Qty: 90 RF: 2 glimepiride 4 mg tablet 4 mg PO BID Qty: 60 RF: 3 ascorbic acid (vitamin C) 500 mg tablet,chewable 500 mg PO DAILY Qty: 30 RF: 0 Primary Care Provider: Tom Sherman Referrals: Tom Sherman MD [Primary Care Provider] - As Needed Disposition Disposition: Home, Self Care
[2021-10-07] MEDS: Ondansetron ODT 4 MG Tablet PO (20:00)
[2021-10-07 20:08] VITALS: BP 108/60; PULSE 82; RESP 16; O2SAT 95
== END 2021-10-07 20:08 | disposition home or self-care (01) ==
PROVIDERS: Emergency Provider Emergency Medicine; PCP Internal Medicine; Visit Provider Emergency Medicine
DX: H81.13 Benign paroxysmal vertigo, bilateral (principal); G35 Multiple sclerosis; J44.9 Chronic obstructive pulmonary disease, unspecified; I11.0 Hypertensive heart disease with heart failure; I50.22 Chronic systolic (congestive) heart failure; I48.0 Paroxysmal atrial fibrillation; E11.9 Type 2 diabetes mellitus without complications; I25.10 Atherosclerotic heart disease of native coronary artery without angina pectoris; I25.5 Ischemic cardiomyopathy; I25.2 Old myocardial infarction; E78.5 Hyperlipidemia, unspecified; E66.9 Obesity, unspecified; G25.81 Restless legs syndrome; D64.9 Anemia, unspecified; F17.210 Nicotine dependence, cigarettes, uncomplicated; Z68.32 Body mass index [BMI] 32.0-32.9, adult; Z95.5 Presence of coronary angioplasty implant and graft; Z79.84 Long term (current) use of oral hypoglycemic drugs; Z79.899 Other long term (current) drug therapy
CPT/HCPCS: 99284; A4216

== ENCOUNTER 2021-11-16 18:55 | Observation (INO) | payer MEDICARE, MEDICAID, SELFPAY ==
[2016-07-13 11:45] VITALS: BMI 31.4
[2021-11-16] VITALS (7 sets, daily range): BP systolic 81–112; BP diastolic 37–78; PULSE 64–80; RESP 12–18; TEMP 36.3–37.1; O2SAT 97–98; BMI 30.1; BMI 29.2
--- NOTE | 2021-11-16 19:28 | EKG12_ITS ---
Test Reason : cp Blood Pressure : / mmHG Vent. Rate : 076 BPM Atrial Rate : 076 BPM P-R Int : 158 ms QRS Dur : 086 ms QT Int : 392 ms P-R-T Axes : 026 -49 076 degrees QTc Int : 441 ms Normal sinus rhythm Left axis deviation Inferior infarct , age undetermined Anterolateral infarct , age undetermined Abnormal ECG Confirmed by ALLAN WITT, DORYS ([id number]), deputy editor in chief YUNG MUNGUIA ([id number]) on 11/19/2021 9:08:02 AM Referred By: Confirmed By:DORYS LEMUS MD
--- NOTE | 2021-11-16 19:29 | EX.ED.DYSGE1 ---
HPI History of Present Illness Chief Complaint: Chest Pain Informant: patient and EMS Narrative Narrative: 65-year-old female brought to the emergency room by EMS following an episode of weakness while shopping at the local [employer] store. Patient states that recently she was admitted at [facility] for several days following an episode of hypotension. She returned home but then was admitted for about 12 days at [facility]. She was discharged home and yesterday was diagnosed with a UTI. She is currently on Keflex. She states that beginning yesterday she has had vomiting and diarrhea that has continued on today. She had 1 episode of vomiting today and 2 episodes of diarrhea. No fevers. She states she was tested for COVID yesterday. Patient notes generalized pain (this is chronic condition) and the patient has a care plan with the hospital. Today she was walking through [employer] shopping pushing a cart when her knees got weak and she went to the floor. She was assisted to a chair. She notes that she is having left-sided chest pain into her arm (this is also a very common complaint for her which comes and goes). She states that she is drinking fluids appropriately. 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 Cervical spinal stenosis Chronic anticoagulation Chronic back pain Chronic neck pain with history of cervical spinal surgery Chronic systolic (congestive) heart failure Closed right tibial fracture COPD (chronic obstructive pulmonary disease) Diabetes mellitus type 2 in nonobese Essential (primary) hypertension Flank pain Fracture of distal end of right tibia Hematemesis Hiatal hernia History of peptic ulcer disease History of ST elevation myocardial infarction (STEMI) Hyperglycemia due to type 2 diabetes mellitus Hyperkalemia IBS (irritable bowel syndrome) Irritable bowel syndrome with diarrhea Ischemic cardiomyopathy Left ventricular hypertrophy Major depression Multiple sclerosis Nicotine abuse Nondisplaced pilon fracture of right tibia, initial encounter for closed fracture BRYAN (obstructive sleep apnea) Osteoporosis Pain of right lower extremity Paroxysmal atrial fibrillation RLS (restless legs syndrome) Suicidal ideation Tachycardia Takotsubo syndrome Type 2 diabetes mellitus Vitamin B12 deficiency Home Medications modafinil 200 mg tablet 200 mg PO DAILY to stay awake 12/12/19 [History Last Taken 08/14/20 09:00] acetaminophen 500 mg tablet 1,000 mg PO TID PRN pain 1-02/03 #1 TAB 07/29/20 [Rx Last Taken Unknown] blood sugar diagnostic (Accu-Chek Ada Plus test strips) #100 ea 08/10/20 [Rx Last Taken Unknown] denosumab 60 mg/mL subcutaneous syringe (Prolia) 60 mg subcut [id number] #1 mL 12/25/20 [Rx Last Taken Unknown] vibegron 75 mg tablet 75 mg PO DAILY 07/03/21 [History Last Taken Unknown] nitroglycerin 0.4 mg sublingual tablet 0.4 mg sublingual Q5-15M chest pain #25 tabs 08/06/21 [Rx Last Taken Unknown] ropinirole 1 mg tablet 1 mg PO DAILY restless legs #90 tabs 08/08/21 [Rx Last Taken Unknown] ropinirole 2 mg tablet 2 mg PO QHS #90 tabs 08/08/21 [Rx Last Taken Unknown] donepezil 10 mg tablet (Aricept) 20 mg PO DAILY memory #180 tabs 09/05/21 [Rx Last Taken Unknown] pioglitazone 30 mg tablet 30 mg PO DAILY diabetes #90 tabs 09/05/21 [Rx Last Taken Unknown] sitagliptin 100 mg tablet 100 mg PO DAILY #30 tabs 09/05/21 [Rx Last Taken Unknown] sucralfate 1 gram tablet 1 g PO 4X/DAY reflux #120 tabs 09/05/21 [Rx Last Taken Unknown] ascorbic acid (vitamin C) 500 mg chewable tablet 500 mg PO DAILY ##30 09/12/21 [Rx Last Taken Unknown] glimepiride 4 mg tablet 4 mg PO BID BLOOD SUGAR #60 tabs 09/12/21 [Rx Last Taken Unknown] acidophilus 100 million cell-pectin, citrus 10 mg capsule 1 cap PO DAILY supplement #90 caps 09/20/21 [Rx Last Taken Unknown] albuterol sulfate 90 mcg/actuation aerosol inhaler 2 puff inhalation Q6H PRN PRN Sob &/Or Wheezing #8.5 grams 09/20/21 [Rx Last Taken Unknown] duloxetine 30 mg capsule,delayed release (Cymbalta) 30 mg PO BID mental health #180 caps 09/20/21 [Rx Last Taken Unknown] ondansetron 4 mg disintegrating tablet 4 mg PO Q8H PRN PRN Nausea #10 tabs 10/07/21 [Rx Last Taken Unknown] dicyclomine 20 mg tablet 20 mg PO BID PRN abdominal discomfort #180 tabs 10/10/21 [Rx Last Taken Unknown] hydroxyzine HCl 50 mg tablet 50 mg PO .QID mental health #120 tabs 10/17/21 [Rx Last Taken Unknown] ondansetron 4 mg disintegrating tablet 4 mg PO Q8H PRN nausea and vomiting #30 tabs 10/22/21 [Rx Last Taken Unknown] atorvastatin 40 mg tablet 40 mg PO DAILY #30 tabs 10/30/21 [Rx Last Taken Unknown] apixaban 5 mg tablet (Eliquis) 5 mg PO ONCE 11/05/21 [History Last Taken Unknown] calcium carbonate 600 mg calcium (1,500 mg) tablet 600 mg PO DAILY 11/05/21 [History Last Taken Unknown] cholecalciferol (vitamin D3) 125 mcg (5,000 unit) capsule 125 mcg PO DAILY 11/05/21 [History Last Taken Unknown] eluxadoline 100 mg tablet 100 mg PO ONCE 11/05/21 [History Last Taken Unknown] ferrous sulfate 325 mg (65 mg iron) tablet 325 mg PO Q OTHER DAY 11/05/21 [History Last Taken Unknown] hydrocodone-acetaminophen 5-325mg 5mg-325mg 1 tab PO Q8H PRN 11/05/21 [History Last Taken Unknown] isosorbide mononitrate 30 mg tablet,extended release 24 hr 30 mg PO DAILY 11/05/21 [History Last Taken Unknown] lisinopril 20 mg tablet 20 mg PO BID BLOOD PRESSURE #180 tabs 11/05/21 [Rx Last Taken Unknown] ofatumumab 20 mg/0.4 mL subcutaneous pen injector (Kesimpta Pen) 20 mg subcut QMONTH 11/05/21 [History Last Taken Unknown] pantoprazole 40 mg granules delayed-release for susp in packet 40 mg PO DAILY 11/05/21 [History Last Taken Unknown] teriflunomide 14 mg tablet (Aubagio) 14 mg PO DAILY 11/05/21 [History Last Taken Unknown] yaa (Ultra-Light Rollator misc) #1 ea 11/06/21 [Rx Last Taken Unknown] carvedilol 6.25 mg tablet 6.25 mg PO BID dose reduced while in [facility] #60 tabs 11/08/21 [Rx Last Taken Unknown] Allergy/AdvReac Type Severity Reaction Status Date / Time indomethacin [From Indocin] Allergy Hives Verified 11/16/21 19:03 indomethacin sodium Allergy Hives Verified 11/16/21 19:03 [From Indocin] iodine Allergy Hives Verified 11/16/21 19:03 propoxyphene napsylate Allergy Out of Verified 11/16/21 19:03 [From Darvocet-N] control aripiprazole [From Abilify] AdvReac Other Verified 11/16/21 19:03 aspirin AdvReac Upset Verified 11/16/21 19:03 Stomach clindamycin AdvReac Nausea Verified 11/16/21 19:03 metformin AdvReac Other Verified 11/16/21 19:03 sumatriptan [From Imitrex] AdvReac Vomiting Verified 11/16/21 19:03 Family History Father Cancer Lung cancer Mother Cancer Pancreatic cancer Surgical History History of amputation of left great toe History of back surgery History of cervical discectomy History of coronary artery stent placement (04/08/16) History of endoscopy History of left heart catheterization (09/25/20) History of left knee surgery History of loop recorder (06/2014) History of tonsillectomy and adenoidectomy Social History household members: none Smoking Status: Current every day smoker tobacco type: cigarettes alcohol intake: never substance use type: does not use caffeine: Yes Type: coffee Number of servings: 1 what type of physical activity do you participate in: none and other details: Physical Therapy ROS ROS ED Constitutional Constitutional ED: Denies chills, fever(s) or weight loss Eyes Eyes: Denies change in vision or diplopia ENT ENT ED: Denies ear pain, rhinorrhea or sore throat Cardiovascular Cardiovascular: Reports chest pain; Denies orthopnea, palpitations or racing heartbeat Respiratory/Chest Respiratory/Chest: Denies cough, dyspnea or orthopnea Gastrointestinal Gastrointestinal: Reports diarrhea, nausea and vomiting; Denies abdominal pain Genitourinary Genitourinary ED: Reports dysuria and urinary frequency; Denies hematuria Musculoskeletal Musculoskeletal: Reports back pain and neck pain; Denies arthralgias or myalgias Integumentary Denies abscess or rash Neurologic Neurologic: Reports headache(s); Denies weakness Psychiatric Psychiatric: Denies anxiety, depression, suicidal ideation or suicidal thoughts Endocrine Endocrinology: Denies polydipsia, polyphagia or polyuria Allergic/Immunologic Allergic/Immunologic ED: Denies mouth swelling, tongue swelling or urticaria EXAM Physical Exam Const Vital Signs: 11/16/21 18:57 11/16/21 18:56 11/16/21 19:04 Temperature 97.4 F L Temperature Source Temporal Pulse Rate 75 Respiratory Rate 12 Respiratory Effort Normal Non-Labored Blood Pressure 81/48 L Blood Pressure Mean 59 Pulse Ox 97 Oxygen Delivery Method Room Air 11/16/21 19:54 11/16/21 20:02 11/16/21 21:24 Temperature Temperature Source Pulse Rate 73 Respiratory Rate 18 17 15 Respiratory Effort Blood Pressure 112/74 Blood Pressure Mean 86 Pulse Ox 98 Oxygen Delivery Method Room Air Positive well nourished and well developed General Appearance ED: well developed HEENT Reports normocephalic, head/scalp atraumatic and moist mucous membranes Eyes PERRL and EOMs intact bilaterally Neck no lymphadenopathy, supple and no JVD Resp normal respiratory effort and clear to auscultation bilaterally Cardio regular rate, regular rhythm and no murmurs GI normal to inspection, nondistended, normoactive bowel sounds and non-tender Palpation: soft Back/Spine no CVA tenderness and normal ROM Extremity normal to inspection General Extremety ED: Negative for edema General Extremity: Negative for edema Neuro oriented x3 and CN's II-XII intact bilaterally Sensorium / Orientation: alert Motor Exam: strength 5/5 throughout Psych mental status grossly normal Mood & Affect: Negative for depressed or tearful Skin no wounds Skin Narrative: Patient has multiple areas of excoriation with scabs on her body. MDM MDM MDM Narrative Medical decision making narrative: Patient's white count is elevated 11.2. Lactic acid is elevated at 2.5. BUN of 22 with a creatinine 1.32. Glucose of 160. Urinalysis shows greater than 100 white cells positive leukocyte Estrace no bacteria but the patient has been on antibiotics. My interpretation of the chest x-ray is no acute process. Patient received IV fluids. Despite her initial hypotensive readings a manual blood pressure was performed which is normal at 112/74 which is more in line with the patient's clinical exam. Therefore I do not think the cough that was taking her pressure was accurate. Patient received Rocephin. Patient continues to note generalized pain particularly chest had abdomen. She does had extensive abdominal work-up at [facility]. Patient does have a history of chronic pain and is a care plan patient here. I gave her Toradol x2. She does not feel well enough to go home. She states that she is worried she is going to pass out. I will speak with the hospitalist regarding admission. Lab Data Attestation: I reviewed the patient's lab results. Labs: Laboratory Results - last 24 hr 11/16/21 11/16/21 11/16/21 19:40 19:40 19:40 WBC 11.2 H RBC 4.06 L Hgb 11.5 L Hct 36.4 L MCV 89.7 MCH 28.3 MCHC 31.6 L RDW Std Deviation 64.3 H RDW Coeff of Yeimi 19.7 H Plt Count 266 MPV 9.6 Immature Gran % (Auto) 0.400 Neut % (Auto) 74.9 H Lymph % (Auto) 15.2 L [place] % (Auto) 7.0 Eos % (Auto) 1.7 Baso % (Auto) 0.8 Absolute Neuts (auto) 8.4 H Absolute Lymphs (auto) 1.70 Nucleated RBC % 0 Sodium 133 L Potassium 5.0 Chloride 104 Carbon Dioxide 21.0 Anion Gap 8 BUN 22 H Creatinine 1.32 H Estim Creat Clear Calc 31.64 Est GFR (MDRD) Af Amer 52 L Est GFR (MDRD) Non-Af 43 L BUN/Creatinine Ratio 16.7 Glucose 166 H Lactic Acid 2.5 H* Calcium 9.8 Total Bilirubin 0.50 AST 24 ALT 20 Alkaline Phosphatase 88 Troponin I High Sens 9 Total Protein 6.8 Albumin 3.4 Globulin 3.4 Albumin/Globulin Ratio 1.0 Urine Color Urine Clarity Urine pH Ur Specific [place] Urine Protein Urine Glucose (UA) Urine Ketones Urine Occult Blood Urine Nitrite Urine Bilirubin Urine Urobilinogen Ur Leukocyte Esterase Urine RBC Urine WBC Ur Squamous Epith Cells Urine Bacteria Urine Mucus 11/16/21 19:45 WBC RBC Hgb Hct MCV MCH MCHC RDW Std Deviation RDW Coeff of Yeimi Plt Count MPV Immature Gran % (Auto) Neut % (Auto) Lymph % (Auto) [place] % (Auto) Eos % (Auto) Baso % (Auto) Absolute Neuts (auto) Absolute Lymphs (auto) Nucleated RBC % Sodium Potassium Chloride Carbon Dioxide Anion Gap BUN Creatinine Estim Creat Clear Calc Est GFR (MDRD) Af Amer Est GFR (MDRD) Non-Af BUN/Creatinine Ratio Glucose Lactic Acid Calcium Total Bilirubin AST ALT Alkaline Phosphatase Troponin I High Sens Total Protein Albumin Globulin Albumin/Globulin Ratio Urine Color Yellow Urine Clarity Cloudy Urine pH 5.0 Ur Specific [place] 1.020 Urine Protein 30 H Urine Glucose (UA) Normal Urine Ketones 5 H Urine Occult Blood 150 H Urine Nitrite Negative Urine Bilirubin Negative Urine Urobilinogen Normal Ur Leukocyte Esterase 500 H Urine RBC 0 SEEN Urine WBC >100 SEEN Ur Squamous Epith Cells 0-5 SEEN Urine Bacteria 0 SEEN Urine Mucus 0 SEEN Radiography Diagnostic Testing: Clinical Impression(s) from Imaging Studies Chest X-Ray 11/16/21 19:37 IMPRESSION: Nonacute portable x-ray examination of the chest. Electronically Signed: Conrad Schwartz MD (Brooks) at 20:01 EDT Reading Location ID and State: [facility] / [place] , Service support , EKG Initial EKG: Attestation: I personally reviewed and interpreted this EKG as follows: Comments: Normal sinus rhythm with a ventricular rate of 76 bpm. Prior: Unchanged Discharge Plan Dx/Rx/DC Orders Clinical Impression: Acute UTI, Sepsis, Near syncope Disposition Disposition: Acute Care Hospital [facility]
--- NOTE | 2021-11-16 19:37 | RAD_ITS ---
STUDY: X-RAY CHEST REASON FOR EXAM: Female, 65 years old. chest pain TECHNIQUE: Single AP portable view of the chest. COMPARISON: 03/03/2018 FINDINGS: Fusion hardware of the lower cervical spine. EKG leads project over the chest. The lungs are clear but under expanded. There is no demonstrated pleural abnormality. Normal size heart. Normal mediastinum and sara. Normal visualized pulmonary arteries. Normal visualized aortic arch and descending thoracic aorta. No acute bony process. There is no demonstrated abnormality of the visualized soft tissue structures of the upper abdomen. RAD/Chest 1 View (Portable) IMPRESSION: Nonacute portable x-ray examination of the chest. Electronically Signed: Conrad Schwartz MD (Brooks) at 20:01 EDT ,
[2021-11-16 19:51] LABS: Bacteria 0 SEEN /hpf (None Seen); Mucous, Urine 0 SEEN /hpf (<or=2+); Red Blood Cells-Urine 0 SEEN /hpf (0-5)
[2021-11-16 19:55] LABS: Absolute Neutrophil Count 8.4 X10^3/uL (2.0-7.7); Basophil# 0.09 X10^3/uL; Basophil% 0.8 % (0-1); Eosinophil# 0.19 X10^3/uL; Eosinophils% 1.7 % (0-5); Hematocrit 36.4 % (37-47); Hemoglobin 11.5 g/dL (12.0-15.0); Lymphocyte % 15.2 % (19-41); Mean Corp Hgb Conc 31.6 g/dL (32-36); Mean Corpuscular Hgb 28.3 pg (27.0-32.0); Mean Corpuscular Volume 89.7 fL (81-99); Mean Platelet Vol. 9.6 fl (6.2-12.0); Monocyte# 0.79 X10^3/uL; NRBC Flagged by Analyzer 0 % (0-5); Neutrophil % 74.9 % (47-70); Platelet Count 266 K/mm3 (150-450); RBC Distribution Width CV 19.7 % (11.6-14.6); RBC Distribution Width SD 64.3 fl (35.1-43.9); Red Blood Count 4.06 M/mm3 (4.2-5.4); White Blood Count 11.2 K/mm3 (4.4-11.0)
[2021-11-16] MEDS: Ondansetron 4 MG/2 ML Vial IV (19:59)
[2021-11-16] MEDS: Ketorolac 15 MG/ML Vial IV ×2 (19:59→21:50)
[2021-11-16] MEDS: 0.9% Normal Saline 1,000 ML 999 ML IV ×2 (20:00→20:40)
[2021-11-16 20:11] LABS: Color, Urine Yellow (Yellow); Glucose, Dipstick Normal (Normal); Ketone-Dipstick 5 mg/dl (Negative); Leukocyte Esterase-Dipstick 500 /ul (Negative); Nitrite-Dipstick Negative (Negative); Occult Blood-Urine 150 /ul (Negative); Protein-Dipstick 30 mg/dl (Negative); Urine Bilirubin Dipstick Negative (Negative); Urine Clarity Cloudy (Clear); Urine Urobilinogen Normal (Normal)
[2021-11-16 20:11] LABS: AST(SGOT) 24 U/L (15-37); Alanine Aminotransfer ALT/SGPT 20 U/L (13-56); Albumin, Serum 3.4 g/dL (3.2-5.0); Alkaline Phosphatase 88 U/L (45-117); Anion Gap 8 (5-15); BUN 22 mg/dL (7-18); BUN/Creat Ratio 16.7 RATIO (10-20); Calcium,Total 9.8 mg/dL (8.5-10.1); Chloride 104 mmol/L (98-107); Creatinine, Serum 1.32 mg/dL (0.55-1.02); EST Glomerular Filtration Rate 43 mL/min (>60); Est Glom Filt Rate - Afr Amer 52 mL/min (>60); Estimated Creatinine Clearance 31.64 ml/min; Globulin 3.4 g/dL (2.2-4.2); Glucose 166 mg/dL (74-106); Protein, Total 6.8 g/dL (6.4-8.2); Sodium Level 133 mmol/L (136-145); Troponin-I HS 9 pg/mL (3.0-54.0)
[2021-11-16 20:12] LABS: Squamous Epithelial Cells - UA 0-5 SEEN /hpf (5-10); White Blood Cells >100 SEEN /hpf (0-5)
[2021-11-16 20:25] LABS: Lactic Acid 2.5 mmol/L (0.4-1.9)
[2021-11-16] MEDS: Ceftriaxone 1 GM/50 ML BAG IV (20:41)
--- NOTE | 2021-11-16 20:49 | CM.ED ---
SW Note SW updated MD that patient has a care plan. SW met with patient. SW is very familiar with patient. Patient said that in September she went to her [facility] neurologist and blood pressure was low so she was sent to [facility]. Patient said that she went home and then in October she went to [facility] as they are a [facility]. Patient said that she had chest pain last night and went to [facility] and was diagnosed with UTI. Patient said today she went to [facility] and her legs gave out. Patient said that her home insurance agent got her home retirement and PT. Patient said that he caseworker intake also is getting her a carrie red rollator. Patient said that she had been feeling good for awhile and even cooked me some meals. Reports her son is doing well. Patient said Am I still on the no pain meds thing and SW confirmed that patient continues to be on a care plan . Patient said I just had to ask. No other issues or concerns voiced. RN and MD updated Plan: ED Care Plan continues Mary REYES
--- NOTE | 2021-11-16 22:18 | PCM.HP.STD ---
[facility] - [facility] Date of Admission: 11/16/21 Date of Service: 11/16/21 Chief Complaint: Presyncope HPI Narrative ELO HERNANDEZ, is a 65 F who presents with presyncope. She was at a local [employer] when she felt unwell; had presyncope and fell. She was brought to the ED by paramedics. She reported some chest pain at the ED; and chronic neck pain. At the ED blood pressure with automatic cuff was low. Manual blood pressure was normal. Her lactic acid was 2.5. Because patient reported that as she still felt unwell a decision was be made for patient to stay at the hospital. Of notes patient reported day before presentation she visit a friend and she felt unwell. She went to the local hospital at her friend's place and she was diagnosed with UTI; chest pain; elevated blood pressure and dehydration. He was discharged home on p.o. antibiotics. Of not patient has a care plan at [facility] ED with no narcotic except glaring pain [facility] Medical History Anemia Anemia Anxiety Apical mural thrombus with acute ME Atherosclerotic heart disease of [place] coronary artery without angina pectoris Cervical spinal stenosis Chronic anticoagulation Chronic back pain Chronic neck pain with history of cervical spinal surgery Chronic systolic (congestive) heart failure Closed right tibial fracture COPD (chronic obstructive pulmonary disease) Diabetes mellitus type 2 in nonobese Essential (primary) hypertension Flank pain Fracture of distal end of right tibia Hematemesis Hiatal hernia History of peptic ulcer disease History of ST elevation myocardial infarction (STEMI) Hyperglycemia due to type 2 diabetes mellitus Hyperkalemia IBS (irritable bowel syndrome) Irritable bowel syndrome with diarrhea Ischemic cardiomyopathy Left ventricular hypertrophy Major depression Multiple sclerosis Nicotine abuse Nondisplaced pilon fracture of right tibia, initial encounter for closed fracture BRYAN (obstructive sleep apnea) Osteoporosis Pain of right lower extremity Paroxysmal atrial fibrillation RLS (restless legs syndrome) Suicidal ideation Tachycardia Takotsubo syndrome Type 2 diabetes mellitus Vitamin B12 deficiency Home Medications modafinil 200 mg tablet 200 mg PO DAILY to stay awake 12/12/19 [History Last Taken 08/14/20 09:00] acetaminophen 500 mg tablet 1,000 mg PO TID PRN pain 1-02/03 #1 TAB 07/29/20 [Rx Last Taken Unknown] blood sugar diagnostic (Accu-Chek Ada Plus test strips) #100 ea 08/10/20 [Rx Last Taken Unknown] denosumab 60 mg/mL subcutaneous syringe (Prolia) 60 mg subcut [id number] #1 mL 12/25/20 [Rx Last Taken Unknown] vibegron 75 mg tablet 75 mg PO DAILY 07/03/21 [History Last Taken Unknown] nitroglycerin 0.4 mg sublingual tablet 0.4 mg sublingual Q5-15M chest pain #25 tabs 08/06/21 [Rx Last Taken Unknown] ropinirole 1 mg tablet 1 mg PO DAILY restless legs #90 tabs 08/08/21 [Rx Last Taken Unknown] ropinirole 2 mg tablet 2 mg PO QHS #90 tabs 08/08/21 [Rx Last Taken Unknown] pioglitazone 30 mg tablet 30 mg PO DAILY diabetes #90 tabs 09/05/21 [Rx Last Taken Unknown] sitagliptin 100 mg tablet 100 mg PO DAILY #30 tabs 09/05/21 [Rx Last Taken Unknown] sucralfate 1 gram tablet 1 g PO 4X/DAY reflux #120 tabs 09/05/21 [Rx Last Taken Unknown] ascorbic acid (vitamin C) 500 mg chewable tablet 500 mg PO DAILY ##30 09/12/21 [Rx Last Taken Unknown] glimepiride 4 mg tablet 4 mg PO BID BLOOD SUGAR #60 tabs 09/12/21 [Rx Last Taken Unknown] acidophilus 100 million cell-pectin, citrus 10 mg capsule 1 cap PO DAILY supplement #90 caps 09/20/21 [Rx Last Taken Unknown] albuterol sulfate 90 mcg/actuation aerosol inhaler 2 puff inhalation Q6H PRN PRN Sob &/Or Wheezing #8.5 grams 09/20/21 [Rx Last Taken Unknown] duloxetine 30 mg capsule,delayed release (Cymbalta) 30 mg PO BID mental health #180 caps 09/20/21 [Rx Last Taken Unknown] ondansetron 4 mg disintegrating tablet 4 mg PO Q8H PRN PRN Nausea #10 tabs 10/07/21 [Rx Last Taken Unknown] dicyclomine 20 mg tablet 20 mg PO BID PRN abdominal discomfort #180 tabs 10/10/21 [Rx Last Taken Unknown] hydroxyzine HCl 50 mg tablet 50 mg PO .QID mental health #120 tabs 10/17/21 [Rx Last Taken Unknown] atorvastatin 40 mg tablet 40 mg PO DAILY #30 tabs 10/30/21 [Rx Last Taken Unknown] calcium carbonate 600 mg calcium (1,500 mg) tablet 600 mg PO DAILY 11/05/21 [History Last Taken Unknown] cholecalciferol (vitamin D3) 125 mcg (5,000 unit) capsule 125 mcg PO DAILY 11/05/21 [History Last Taken Unknown] eluxadoline 100 mg tablet 100 mg PO DAILY 11/05/21 [History Last Taken Unknown] ferrous sulfate 325 mg (65 mg iron) tablet 325 mg PO Q OTHER DAY 11/05/21 [History Last Taken Unknown] hydrocodone-acetaminophen 5-325mg 5mg-325mg 1 tab PO Q8H PRN Pain 11/05/21 [History Last Taken Unknown] isosorbide mononitrate 30 mg tablet,extended release 24 hr 30 mg PO DAILY 11/05/21 [History Last Taken Unknown] lisinopril 20 mg tablet 20 mg PO BID BLOOD PRESSURE #180 tabs 11/05/21 [Rx Last Taken Unknown] pantoprazole 40 mg granules delayed-release for susp in packet 40 mg PO DAILY 11/05/21 [History Last Taken Unknown] walker (Ultra-Light Rollator misc) #1 ea 11/06/21 [Rx Last Taken Unknown] carvedilol 6.25 mg tablet 6.25 mg PO BID dose reduced while in [facility] #60 tabs 11/08/21 [Rx Last Taken Unknown] aspirin 81 mg chewable tablet 1 tab PO DAILY 11/16/21 [History Last Taken Unknown] donepezil 10 mg tablet (Aricept) 2 tab PO DAILY 11/17/21 [History Last Taken Unknown] Allergy/AdvReac Type Severity Reaction Status Date / Time indomethacin [From Indocin] Allergy Hives Verified 11/16/21 19:03 indomethacin sodium Allergy Hives Verified 11/16/21 19:03 [From Indocin] iodine Allergy Hives Verified 11/16/21 19:03 propoxyphene napsylate Allergy Out of Verified 11/16/21 19:03 [From Darvocet-N] control aripiprazole [From Abilify] AdvReac Other Verified 11/16/21 19:03 aspirin AdvReac Upset Verified 11/16/21 19:03 Stomach clindamycin AdvReac Nausea Verified 11/16/21 19:03 metformin AdvReac Other Verified 11/16/21 19:03 sumatriptan [From Imitrex] AdvReac Vomiting Verified 11/16/21 19:03 Family History Father Cancer Lung cancer Mother Cancer Pancreatic cancer Surgical History History of amputation of left great toe History of back surgery History of cervical discectomy History of coronary artery stent placement (04/08/16) History of endoscopy History of left heart catheterization (09/25/20) History of left knee surgery History of loop recorder (06/2014) History of tonsillectomy and adenoidectomy Social History household members: none Smoking Status: Current every day smoker tobacco type: cigarettes alcohol intake: never substance use type: does not use caffeine: Yes Type: coffee Number of servings: 1 what type of physical activity do you participate in: none and other details: Physical Therapy ROS ROS Narrative Pertinent positives and pertinent negatives as noted in HPI. All other systems were reviewed and are negative. Vital Signs Vital Signs Vital Signs: 11/16/21 18:57 11/16/21 18:56 11/16/21 19:04 Temperature 97.4 F L Temperature Source Temporal Pulse Rate 75 Respiratory Rate 12 Respiratory Effort Normal Non-Labored Blood Pressure 81/48 L Blood Pressure Mean 59 Pulse Ox 97 Oxygen Delivery Method Room Air 11/16/21 19:54 11/16/21 20:02 11/16/21 21:24 Temperature Temperature Source Pulse Rate 73 Respiratory Rate 18 17 15 Respiratory Effort Blood Pressure 112/74 Blood Pressure Mean 86 Pulse Ox 98 Oxygen Delivery Method Room Air Weight Weight: 74.253 kg Body Mass Index (BMI) 30.1 Physical Exam Narrative Physical exam: General: Well-nourished, well-developed. Head: Normocephalic, atraumatic, no tenderness Eyes: Vision is grossly intact. EOMI ENT, edentulous; no rhinorrhea Neck: Nontender, full range of motion. CVS: Regular rate and rhythm. S1-S2 present. No murmur, gallop or rub. Respiratory : clear to auscultation bilaterally, chest wall nontender, no wheezing Abdomen: Soft, nontender, nondistended, normal bowel sounds, no masses : Deferred Back: Nontender, no CVA tenderness, no midline spinal tenderness, deformities, step-offs Extremities: Nontender full range of motion, no trauma Skin: Normal color, multiple excoriations on the skin (attributes to scratching) Neuro: Alert, oriented, cranial nerves II through XII grossly intact. Psychiatry: Normal mood. Normal affect. Not depressed. Not anxious. Results Medical Records Data Attestation: I reviewed the patient's medical records Lab / Micro Data Attestation: I reviewed the patient's lab results. Result Diagrams: 11/17/21 05:20 11/17/21 05:20 Labs: Laboratory Results - last 24 hr 11/16/21 19:40: WBC 11.2 H, RBC 4.06 L, Hgb 11.5 L, Hct 36.4 L, MCV 89.7, MCH 28.3, MCHC 31.6 L, RDW Std Deviation 64.3 H, RDW Coeff of Yeimi 19.7 H, Plt Count 266, MPV 9.6, Immature Gran % (Auto) 0.400, Neut % (Auto) 74.9 H, Lymph % (Auto) 15.2 L, [place] % (Auto) 7.0, Eos % (Auto) 1.7, Baso % (Auto) 0.8, Absolute Neuts (auto) 8.4 H, Absolute Lymphs (auto) 1.70, Nucleated RBC % 0 11/16/21 19:40: Sodium 133 L, Potassium 5.0, Chloride 104, Carbon Dioxide 21.0, Anion Gap 8, BUN 22 H, Creatinine 1.32 H, Estim Creat Clear Calc 31.64, Est GFR (MDRD) Af Amer 52 L, Est GFR (MDRD) Non-Af 43 L, BUN/Creatinine Ratio 16.7, Glucose 166 H, Calcium 9.8, Total Bilirubin 0.50, AST 24, ALT 20, Alkaline Phosphatase 88, Troponin I High Sens 9, Total Protein 6.8, Albumin 3.4, Globulin 3.4, Albumin/Globulin Ratio 1.0 11/16/21 19:40: Lactic Acid 2.5 H* 11/16/21 19:45: Urine Color Yellow, Urine Clarity Cloudy, Urine pH 5.0, Ur Specific [place] 1.020, Urine Protein 30 H, Urine Glucose (UA) Normal, Urine Ketones 5 H, Urine Occult Blood 150 H, Urine Nitrite Negative, Urine Bilirubin Negative, Urine Urobilinogen Normal, Ur Leukocyte Esterase 500 H, Urine RBC 0 SEEN, Urine WBC >100 SEEN, Ur Squamous Epith Cells 0-5 SEEN, Urine Bacteria 0 SEEN, Urine Mucus 0 SEEN Rhythm Strip Rhythm Strip: Sinus Rhythm Radiology Impression Chest X-Ray 11/16/21 19:37 IMPRESSION: Nonacute portable x-ray examination of the chest. Electronically Signed: Conrad Schwartz MD (Brooks) at 20:01 EDT Reading Location ID and State: [facility] / [place] , Service support , Assessment & Plan Assessment/Plan (1) Near syncope: PLAN: Plan Syncope EKG independently reviewed showed sinus rhythm with multiple Q waves. Impression of chest x-ray by radiologist: Nonacute portable x-ray examination of the chest. Actual chest x-ray image was visualized and independently interpreted. I agree with radiologist interpretation. Outside records were reviewed. Of note the patient was admitted at [facility] on 10/27/2021 and discharged on 10/31/2021. Patient was admitted for hypertensive emergency and right-sided abdominal pain. Per discharge summary patient had elevated troponins; T wave inversions. Echocardiogram done showed EF of 48+5% with grade 1 left ventricular diastolic dysfunction. Left ventricular apical transmural thrombus could not be ruled out. Patient underwent cardiac catheterization on 11/04/21. Cardiac catheterization was normal and patient was discharged home. Orthostatic vitals per protocol Hypotension With hypotension while at the guo normal saline bolus ordered. After bolus continue normal saline maintenance infusion previously ordered. Hold all home blood pressure medications. Drug-seeking behavior. Reported patiently is on a care plan at the emergency department for no narcotics except with glaring pain. Review of discharge summary (admit date 10/27/2021 discharge date 10/31/2021 admit date 10/27/2021, discharge date 10/31/2021. From outside hospital ([facility] stated that patient had requested morphine in addition to home Fleming multiple times and was advised to follow-up with pain management. Diabetes mellitus Patient with hyperglycemia on presentation Glimepiride continued continued. Monitor Accu-Cheks Correction scale insulin ordered. Recent UTI CBC reviewed showed white count of 14.1. Trend. Urinalysis is abnormal. Was on Keflex at home. Placed on ceftriaxone at the emergency department on this presentation and continued. DVT Prophylaxis Lovenox ordered Charges/Coding Visit Charges Inpatient E&M: 94438 Init Hosp L3 OBSV E&M: 92100 Initial observation care L3
--- NOTE | 2021-11-16 22:55 | ED.RN ---
yamilka hager called on the floor at time patient leaving dept. Returned patient to room in ED, at this time.
[2021-11-16] MEDS: 0.9% Normal Saline 1,000 ML 100 ML IV (23:45)
[2021-11-16 23:49] LABS: Reflex Lactate? Y
[2021-11-17] VITALS (14 sets, daily range): BP systolic 77–129; BP diastolic 34–69; PULSE 64–88; RESP 16–20; TEMP 36.2–36.8; O2SAT 96–100
[2021-11-17 00:46] LABS: Bedside Glucose 160 mg/dL (74-106)
[2021-11-17] MEDS: Pramipexole Di-HCl 1 MG Tablet PO ×2 (01:03→23:06)
[2021-11-17] MEDS: hydrOXYzine PAM 25 MG Capsule 50 MG PO ×5 (01:04→22:44)
[2021-11-17] MEDS: MELATONIN 3 MG TABLET PO ×2 (01:04→22:30)
[2021-11-17] MEDS: Insulin Lispro 100 UNIT/ML INSULN.PEN SC ×3 (01:04→11:24)
[2021-11-17] MEDS: DULoxetine Hcl 30 MG Capsule PO ×3 (01:04→22:36)
[2021-11-17] MEDS: 0.9% Saline Lock 10 ML Syringe IV (01:05)
[2021-11-17 05:39] LABS: Absolute Lymphocyte Count 1.46 X10^3/uL (0.83-4.51); Absolute Neutrophil Count 11.4 X10^3/uL (2.0-7.7); Basophil# 0.08 X10^3/uL; Basophil% 0.6 % (0-1); Eosinophil# 0.19 X10^3/uL; Eosinophils% 1.4 % (0-5); Hematocrit 29.7 % (37-47); Hemoglobin 9.1 g/dL (12.0-15.0); Lymphocyte # 1.46 X10^3/ul (0.83-4.51); Lymphocyte % 10.4 % (19-41); Mean Corp Hgb Conc 30.6 g/dL (32-36); Mean Corpuscular Volume 91.4 fL (81-99); Mean Platelet Vol. 9.5 fl (6.2-12.0); Monocyte# 0.87 X10^3/uL; Monocyte% 6.2 % (0-10); NRBC Flagged by Analyzer 0 % (0-5); Neutrophil # 11.37 X10^3/uL (2.7-7.7); Neutrophil % 80.8 % (47-70); POSITIVE MORPHOLOGY YES; Platelet Count 213 K/mm3 (150-450); RBC Distribution Width CV 19.6 % (11.6-14.6); RBC Distribution Width SD 65.8 fl (35.1-43.9); Red Blood Count 3.25 M/mm3 (4.2-5.4); White Blood Count 14.1 K/mm3 (4.4-11.0)
[2021-11-17 05:59] LABS: Differential Indicated SCAN CRITERIA MET
[2021-11-17 06:05] LABS: Anion Gap 6 (5-15); BUN 27 mg/dL (7-18); BUN/Creat Ratio 22.3 RATIO (10-20); Calcium,Total 8.5 mg/dL (8.5-10.1); Chloride 110 mmol/L (98-107); Creatinine, Serum 1.21 mg/dL (0.55-1.02); EST Glomerular Filtration Rate 47 mL/min (>60); Est Glom Filt Rate - Afr Amer 57 mL/min (>60); Estimated Creatinine Clearance 36.17 ml/min; Glucose 168 mg/dL (74-106); Potassium 3.8 mmol/L (3.5-5.1); Sodium Level 138 mmol/L (136-145)
[2021-11-17 06:26] LABS: Anisocytosis 1+; Differential Comment SCANNED; Macrocytosis RARE; Microcytosis RARE
[2021-11-17] MEDS: Sucralfate 1 GM Tablet PO ×4 (06:29→22:36)
[2021-11-17] MEDS: 0.9% Normal Saline 1,000 ML 999 ML IV (06:30)
[2021-11-17 07:00] LABS: Bedside Glucose 194 mg/dL (74-106)
[2021-11-17] MEDS: Enoxaparin 40 MG/0.4 ML Syringe SC (09:56)
[2021-11-17] MEDS: 0.9% Normal Saline 1,000 ML 100 ML IV ×2 (09:56→16:53)
[2021-11-17] MEDS: Cholecalciferol (Vit D3) 125 MCG CAPSULE (5,000 UNITS) PO (09:56)
[2021-11-17] MEDS: Pioglitazone Hydrochloride 30 MG Tablet PO (09:57)
[2021-11-17] MEDS: Pantoprazole Sodium 40 MG Tablet PO (09:57)
[2021-11-17] MEDS: LINAGLIPTIN 5 MG TABLET PO (09:57)
[2021-11-17] MEDS: Calcium Carbonate 500 MG Tablet PO (09:57)
[2021-11-17] MEDS: Glimepiride 4 MG Tablet PO ×2 (09:57→15:54)
[2021-11-17] MEDS: Ascorbic Acid 500 MG Tablet PO (09:57)
[2021-11-17] MEDS: Modafinil 200 MG Tablet PO (09:58)
[2021-11-17] MEDS: Aspirin 81 MG TAB.CHEW PO (09:58)
[2021-11-17] MEDS: Donepezil HCl 10 MG Tablet 20 MG PO (11:24)
[2021-11-17] MEDS: Ferrous Sulfate 325 MG Tablet PO (11:24)
[2021-11-17] MEDS: Pramipexole Di-HCl 0.5 MG Tablet PO (11:24)
[2021-11-17 11:55] LABS: Bedside Glucose 176 mg/dL (74-106)
--- NOTE | 2021-11-17 12:22 | PN.HOSP_ITS ---
Subjective Subjective Follow-up on hypotension/presyncope/UTI: Patient was seen and examined. She admits to having frequent bowel movements. She also complains of chest discomfort. EKG is unchanged. Patient had a recent cardiac catheterization done on 11/04/2021 that showed clean coronaries. Stool for C. difficile has been negative. Orthostatic vitals are negative. Objective Data Objective Data Vital Signs: Vital Signs Temp Pulse Resp BP Pulse Ox O2 Del Method O2 Flow Rate 97.7 F L 69 20 H 98/38 L 98 Room Air 2 11/17/21 09:40 11/17/21 09:40 11/17/21 09:40 11/17/21 09:40 11/17/21 09:40 11/17/21 09:40 11/17/21 07:22 Oxygen Flow Rate (L/min) 2 Oxygen Delivery Method Room Air Weight: 72.5 kg Body Mass Index (BMI) 29.2 Intake & Output: Intake and Output for Last 24 Hours 11/15/21 11/16/21 11/17/21 23:59 23:59 23:59 Intake Total 1716 / 1716 2406.67 / 2406.67 Balance 1716 / 1716 2406.67 / 2406.67 Lab / Micro Data Result Diagrams: 11/17/21 05:20 11/17/21 05:20 Labs: Laboratory Results - last 24 hr 11/16/21 19:40: WBC 11.2 H, RBC 4.06 L, Hgb 11.5 L, Hct 36.4 L, MCV 89.7, MCH 28.3, MCHC 31.6 L, RDW Std Deviation 64.3 H, RDW Coeff of Yeimi 19.7 H, Plt Count 266, MPV 9.6, Immature Gran % (Auto) 0.400, Neut % (Auto) 74.9 H, Lymph % (Auto) 15.2 L, [place] % (Auto) 7.0, Eos % (Auto) 1.7, Baso % (Auto) 0.8, Absolute Neuts (auto) 8.4 H, Absolute Lymphs (auto) 1.70, Nucleated RBC % 0 11/16/21 19:40: Sodium 133 L, Potassium 5.0, Chloride 104, Carbon Dioxide 21.0, Anion Gap 8, BUN 22 H, Creatinine 1.32 H, Estim Creat Clear Calc 31.64, Est GFR (MDRD) Af Amer 52 L, Est GFR (MDRD) Non-Af 43 L, BUN/Creatinine Ratio 16.7, Glucose 166 H, Calcium 9.8, Total Bilirubin 0.50, AST 24, ALT 20, Alkaline Phosphatase 88, Troponin I High Sens 9, Total Protein 6.8, Albumin 3.4, Globulin 3.4, Albumin/Globulin Ratio 1.0 11/16/21 19:40: Lactic Acid 2.5 H* 11/16/21 19:45: Urine Color Yellow, Urine Clarity Cloudy, Urine pH 5.0, Ur Specific [place] 1.020, Urine Protein 30 H, Urine Glucose (UA) Normal, Urine Ket ones 5 H, Urine Occult Blood 150 H, Urine Nitrite Negative, Urine Bilirubin Negative, Urine Urobilinogen Normal, Ur Leukocyte Esterase 500 H, Urine RBC 0 SEEN, Urine WBC >100 SEEN, Ur Squamous Epith Cells 0-5 SEEN, Urine Bacteria 0 SEEN, Urine Mucus 0 SEEN 11/16/21 23:47: POC Glucose 160 H 11/17/21 00:25: Lactic Acid 1.0 11/17/21 05:20: WBC 14.1 H, RBC 3.25 L, Hgb 9.1 L, Hct 29.7 L, MCV 91.4, MCH 28.0, MCHC 30.6 L, RDW Std Deviation 65.8 H, RDW Coeff of [place]i 19.6 H, Plt Count 213, MPV 9.5, Immature Gran % (Auto) 0.600, Neut % (Auto) 80.8 H, Lymph % (Auto) 10.4 L, [place] % (Auto) 6.2, Eos % (Auto) 1.4, Baso % (Auto) 0.6, Absolute Neuts (auto) 11.4 H, Absolute Lymphs (auto) 1.46, Nucleated RBC % 0, Differential Comment SCANNED, Anisocytosis 1+, Microcytosis RARE, Macrocytosis RARE 11/17/21 05:20: Sodium 138, Potassium 3.8, Chloride 110 H, Carbon Dioxide 22.0, Anion Gap 6, BUN 27 H, Creatinine 1.21 H, Estim Creat Clear Calc 36.17, Est GFR (MDRD) Af Amer 57 L, Est GFR (MDRD) Non-Af 47 L, BUN/Creatinine Ratio 22.3 H, Glucose 168 H, Calcium 8.5 11/17/21 06:28: POC Glucose 194 H 11/17/21 11:21: POC Glucose 176 H Micro: Microbiology 11/17/21 08:25 Stool C. difficile DNA Amplification - Final 11/17/21 08:25 Stool Enteric Bacteriology - Final 11/16/21 20:45 Urine, Clean Catch Urine Culture - Preliminary Gram negative mahendra Radiography Diagnostic Testing: Radiology Impression Chest X-Ray 11/16/21 19:37 IMPRESSION: Nonacute portable x-ray examination of the chest. Electronically Signed: Conrad Schwartz MD (Brooks) at 20:01 EDT , Rhythm Strip Rhythm Strip: Sinus Rhythm Physical Exam Narrative Physical exam: General: Alert, oriented x3, cooperative, appears chronically unwell, unkempt, HEENT: Atraumatic Oral: Moist Mucosa Neck: Supple Lungs: Diminished to auscultation Cardiovascular: HS I+II, regular, no murmurs Abdomen: Bowel Sounds Present, Soft, Non Tender Extremities: No edema Skin: Open areas on skin, stages of healing from picking of skin Neurological: Grossly intact Psych/Mental Status: Appropriate Assessment & Plan Assessment/Plan (1) Acute UTI: (2) Near syncope: PLAN: Plan 1. Syncope/presyncope secondary to hypotension, Blood pressures are improved, repeat orthostatic vitals are negative Continue on IV fluids 2. Acute diarrhea, likely antibiotic related, acute C. difficile ruled out Continue with Imodium as needed 3. Acute gram-negative mahendra UTI, patient recently diagnosed with acute UTI in [facility] Discharged on Keflex, started on ceftriaxone here, urine cultures are pending Continue on IV ceftriaxone, follow-up on urine cultures, obtain medical records from [facility] 4. Acute chest pain, musculoskeletal, will start on Lidoderm as needed 5. Type II DM, blood sugars are fairly controlled, continue on Tradjenta, glimepiride, insulin sliding scale 6. DVT PPx?Lovenox subcu Charges/Coding Visit Charges Inpatient E&M: 11135 Subs Hosp L2
[2021-11-17] MEDS: Acetaminophen 500 MG Tablet 1000 MG PO ×2 (13:00→22:30)
[2021-11-17] MEDS: Loperamide 2 MG Capsule PO (13:01)
[2021-11-17] MEDS: Ondansetron 4 MG/2 ML Vial IV ×2 (13:01→22:45)
--- NOTE | 2021-11-17 13:28 | EKG12_ITS ---
Test Reason : cp Blood Pressure : / mmHG Vent. Rate : 071 BPM Atrial Rate : 071 BPM P-R Int : 156 ms QRS Dur : 100 ms QT Int : 398 ms P-R-T Axes : 043 -15 074 degrees QTc Int : 432 ms Normal sinus rhythm Low voltage QRS Possible Inferior infarct , age undetermined Cannot rule out Anterior infarct , age undetermined Abnormal ECG When compared with ECG of 16-NOV-2021 18:56, MANUAL COMPARISON REQUIRED, DATA IS UNCONFIRMED Confirmed by ALLAN WITT, DORYS ([id number]), non linear editor YUNG MUNGUIA ([id number]) on 11/20/2021 12:50:40 PM Referred By: Lucas Confirmed By:DORYS LEMUS MD
--- NOTE | 2021-11-17 13:35 | NURSING ---
Pt c.o of chest pain when nurse Annia goes into room. Annia calls this nurse, and I go into room to assess pt. Pt is laying on side, watching tv, holding chest and states please don't be mad at me. This nurse listens to heart and observes heart monitor and it shows NSR with regular heart sounds. Pt states pain radiates to left shoulder and starts in middle of chest. When this nurse places stethoscope on chest she flinches. Pt states pain when palpating chest and collar area. This nurse explains that usually that indicates muskuloskeletal pain and not cardiac, but stated we will still get an EKG. EKG shows NSR.
--- NOTE | 2021-11-17 14:04 | NURSING ---
Upon walking into pt room, this nurse finds pt asleep. This nurse wakes up pt to take probiotic and offers Nitro tab. This nurse explains that pt already had tylenol a bit ago and has nothing else ordered for her headache if one develops from the nitro. This nurse tells pt that a lidoderm patch can be placed on chest when pharmacy sends it up. Pt states she will wait for patch and does not want nitro at this time. This nurse explains that pt heart cath report from the showed a clear heart cath and it isn't likely that her arteries are clogged within 13 days. Pt states she understands. Will continue to monitor. Pt is resting in bed, remains on supervisor wood room in NSR
[2021-11-17] MEDS: Lidocaine 5% Patch 2 PATCH TOPICAL (14:38)
[2021-11-17 16:15] LABS: Bedside Glucose 154 mg/dL (74-106)
[2021-11-17] MEDS: Dicyclomine 10 MG Capsule 20 MG PO (22:30)
[2021-11-17] MEDS: Atorvastatin Calcium 40 MG Tablet PO (22:37)
[2021-11-17] MEDS: Ceftriaxone 1 GM/50 ML BAG IV (22:58)
[2021-11-18] VITALS (10 sets, daily range): BP systolic 94–140; BP diastolic 47–69; PULSE 73–87; RESP 16; TEMP 36.2–37; O2SAT 94–100
[2021-11-18 01:30] LABS: Bedside Glucose 100 mg/dL (74-106)
[2021-11-18] MEDS: 0.9% Normal Saline 1,000 ML 100 ML IV ×3 (02:33→21:24)
[2021-11-18] MEDS: Sucralfate 1 GM Tablet PO ×3 (06:10→17:05)
[2021-11-18 07:10] LABS: Bedside Glucose 61 mg/dL (74-106)
[2021-11-18 07:10] LABS: Bedside Glucose 75 mg/dL (74-106)
[2021-11-18] MEDS: LINAGLIPTIN 5 MG TABLET PO (09:02)
[2021-11-18] MEDS: DULoxetine Hcl 30 MG Capsule PO ×2 (09:02→21:18)
[2021-11-18] MEDS: Ascorbic Acid 500 MG Tablet PO (09:02)
[2021-11-18] MEDS: Calcium Carbonate 500 MG Tablet PO (09:02)
[2021-11-18] MEDS: Donepezil HCl 10 MG Tablet 20 MG PO (09:02)
[2021-11-18] MEDS: hydrOXYzine PAM 25 MG Capsule 50 MG PO ×3 (09:02→17:05)
[2021-11-18] MEDS: Cholecalciferol (Vit D3) 125 MCG CAPSULE (5,000 UNITS) PO (09:02)
[2021-11-18] MEDS: Pioglitazone Hydrochloride 30 MG Tablet PO (09:02)
[2021-11-18] MEDS: Pantoprazole Sodium 40 MG Tablet PO (09:02)
[2021-11-18] MEDS: Aspirin 81 MG TAB.CHEW PO (09:03)
[2021-11-18] MEDS: Enoxaparin 40 MG/0.4 ML Syringe SC (09:05)
[2021-11-18] MEDS: Lidocaine 5% Patch 2 PATCH TOPICAL (09:05)
[2021-11-18] MEDS: Acetaminophen 500 MG Tablet 1000 MG PO ×3 (09:13→21:28)
[2021-11-18] MEDS: Loperamide 2 MG Capsule PO ×3 (09:13→19:59)
[2021-11-18] MEDS: Modafinil 200 MG Tablet PO (09:18)
--- NOTE | 2021-11-18 10:00 | CASEMGMT ---
This RN CM to room with SADLER form, explanation done-pt voices understanding, and pt signs SADLER form. Original to chart and copy to pt. Pt states has CM thru [employer], Gabriella Miller and now states she needs to go for rehab at discharge. Pt states she would like [facility] or [facility]. Pt advised that SW will be updated and list of in-network facilities to be provided, voices understanding. SStaten JEAN MARIE CM
--- NOTE | 2021-11-18 11:01 | CASEMGMT ---
Per physician patient wants to go to a senior living at discharge. SW will print a list of in network SNF's for patient. Rajwinder SANCHEZ
[2021-11-18] MEDS: Insulin Lispro 100 UNIT/ML INSULN.PEN SC (11:09)
[2021-11-18] MEDS: Pramipexole Di-HCl 0.5 MG Tablet PO (11:09)
--- NOTE | 2021-11-18 11:29 | CASEMGMT ---
Addendum entered by Roula Antoine 11/18/21 11:45: Discharge Housekeeping Room Attendant Roula cancelled referral at [facility] as [facility] is not in network with patient insurance. Sent a facesheet to [facility] to look at to see if facility can take her insurance. Will follow up. Roula Antoine Discharge Housekeeping Room Attendant Original Note: Discharge Housekeeping Room Attendant Roula d/c equal opportunity assistant sent over a referral to Brittany at [facility]. Will follow up. Plan: [facility], Waiting acceptance. Roula Antoine Discharge Housekeeping Room Attendant
--- NOTE | 2021-11-18 11:42 | CASEMGMT ---
RN SYDNEE said patient's SNF choices are [facility] and [facility] in [place]. SW reviewed patient's insurance website for in network SNFs. [facility] is not in network nor is [facility]. SW met with patient, introduced self and role at [facility]. SW let patient know [facility] nor [facility] are in network with her insurance. Patient told SW she spoke with her family caseworker and because she has [employer] she can go there. SW provided a list of SNF providers including quality and resource use data and consistent with the patient?s preferred geographic region, medical needs, and insurance network. SW told patient the facilities highlighted in pink are the ones that take her insurance. SW told patient SW will check with [facility]. PRAVIN called [facility] and spoke with Leandra. She said if patient is on the waiver program it would be different. Leandra asked SW to fax patient's face sheet so they can verify patient is on waiver program. Roula de jesus/caitlyn planning management it specialist faxed face sheet to [place]. Await response. Rajwinder Benavidez SOFTWARE ENGINEERING SUPERVISOR DANIEL
[2021-11-18 12:05] LABS: Bedside Glucose 198 mg/dL (74-106)
[2021-11-18] MEDS: Ondansetron 4 MG/2 ML Vial IV (12:48)
[2021-11-18] MEDS: Dicyclomine 10 MG Capsule 20 MG PO ×2 (12:50→21:24)
--- NOTE | 2021-11-18 13:47 | CASEMGMT ---
PRAVIN called Laura at [facility]. Laura said she did not get the fax. PRAVIN then realized PRAVIN had the fax number wrong. The correct fax number is [phone]. PRAVIN re-faxed face sheet and insurance card. Await response. Rajwinder Benavidez EXECUTIVE VICE PRESIDENT DANIEL
--- NOTE | 2021-11-18 14:36 | CASEMGMT ---
PRAVIN received a return call from Laura at [facility] and they cannot accept patient due to insurance. Bong Perera is still reviewing patient's referral. PRAVIN met with patient and let her know about [facility] and [facility]. PRAVIN did ask for another choice in case [facility] does not work out. Patient reviewed list and chose [facility]. PRAVIN notified Roula d/c material planning analyst and she will make a referral. Rajwinder Benavidez EMBROIDERY PATTERNMAKER DANIEL
--- NOTE | 2021-11-18 14:39 | CASEMGMT ---
Discharge Armature Rewinder Roula Badillo/caitlyn Security Consultant faxed over referral on patient to Christopher at [facility]. Will follow up. Plan: [facility] vs [facility], Waiting acceptance. Roula Antoine Discharge Armature Rewinder
--- NOTE | 2021-11-18 15:59 | CASEMGMT ---
[facility] has declined patient. SW let patient know this information. Patient said if [facility] cannot take her then [facility] is her next choice. Await response from [facility]. Rajwinder Benavidez AIR TRAFFIC CONTROL SUPERVISOR DANIEL
[2021-11-18] MEDS: Glimepiride 4 MG Tablet PO (17:05)
[2021-11-18 17:40] LABS: Bedside Glucose 130 mg/dL (74-106)
--- NOTE | 2021-11-18 19:18 | PCM.PN.HOSP ---
Subjective Subjective Seen and examined today, she still states she is having diarrhea, she also now wants to go to a snf facility because she is too weak to go home. I have reviewed the patient's medications, she is on extensive numbers of medications, I have stopped several of these medications while she is in the hospital, I have increased her Bentyl and made it programmed. Objective Data Objective Data Vital Signs: Vital Signs Temp Pulse Resp BP Pulse Ox O2 Del Method O2 Flow Rate 97.7 F L 80 16 140/69 H 97 Room Air 2 11/18/21 14:58 11/18/21 16:16 11/18/21 14:58 11/18/21 14:58 11/18/21 14:58 11/18/21 15:06 11/17/21 07: Oxygen Flow Rate (L/min) 2 Oxygen Delivery Method Room Air Weight: 72.5 kg Body Mass Index (BMI) 29.2 Intake & Output: Intake and Output for Last 24 Hours 11/16/21 11/17/21 11/18/21 23:59 23:59 23:59 Intake Total 1716 / 1716 3651.67 / 3651.67 2966.67 / 2966.67 Output Total 800 / 800 Balance 1716 / 1716 3651.67 / 3651.67 2166.67 / 2166.67 Lab / Micro Data Result Diagrams: 11/17/21 05:20 11/17/21 05:20 Labs: Laboratory Results - last 24 hr 11/17/21 22:34: POC Glucose 100 11/18/21 06:13: POC Glucose 61 L 11/18/21 06:44: POC Glucose 75 11/18/21 11:06: POC Glucose 198 H 11/18/21 17:01: POC Glucose 130 H Micro: Microbiology 11/16/21 20:45 Urine, Clean Catch Urine Culture - Final Gram negative mahendra GPC Poss Enterococcus sp 11/17/21 08:25 Stool C. difficile DNA Amplification - Final 11/17/21 08:25 Stool Enteric Bacteriology - Final Rhythm Strip Rhythm Strip: Sinus Rhythm Physical Exam Const alert, oriented x3, no apparent distress and average body habitus General Appearance: cooperative, well kempt and well developed Orientation / Consciousness: awake, oriented to person, oriented to place and oriented to time HEENT normocephalic and moist oral mucous membranes Eyes PERRL, EOMs intact bilaterally and conjunctivae normal Neck supple, no JVD and thyroid normal General: trachea midline Resp normal respiratory effort, no retractions, no use of accessory muscles and clear to auscultation bilaterally Auscultation: Negative for rales, rhonchi or wheezes Cardio regular rate, regular rhythm, S1 normal heart sound, S2 normal heart sound, no murmurs, no rub and no gallops GI normal to inspection, nondistended, normoactive bowel sounds, soft to palpation, non-tender and non-distended Extremity no clubbing, cyanosis or edema Skin no rashes or lesions noted General Skin Exam: no breakdown Neuro oriented x3, CN's II-XII intact bilaterally, no focal motor deficits and no sensory deficits noted Sensorium / Orientation: awake and alert Speech: speech normal Psych affect normal Assessment & Plan Assessment/Plan (1) Acute UTI: PLAN: Plan 1. Presyncope secondary to hypotension-continue to monitor the patient, she has not symptomatic today #2 acute diarrhea-etiology unclear, I have placed the patient on program Bentyl, I will stop several of her medications which may be related to the diarrhea. #3 acute cystitis-patient was discharged recently from [facility] in [place] on Keflex, patient is now on ceftriaxone here, await urine culture #4 type 2 diabetes-patient will remain on her current medications, sliding scale insulin is being given #5 acute debility-PT and OT are going to be seeing the patient, we will try for placement in a snf facility #6 essential hypertension-patient's blood pressure will be monitored at this time, her lisinopril is being held at this time #7 paroxysmal atrial fibrillation-patient's carvedilol is being held currently, patient is not on any anticoagulants at time- I will need to verify if she is on any anticoagulants Charges/Coding Visit Charges OBSV E&M: 91272 Subsequent observation care L2
[2021-11-18] MEDS: Pramipexole Di-HCl 1 MG Tablet PO (21:19)
[2021-11-18] MEDS: Atorvastatin Calcium 40 MG Tablet PO (21:19)
[2021-11-18] MEDS: Ceftriaxone 1 GM/50 ML BAG IV (21:24)
[2021-11-18] MEDS: MELATONIN 3 MG TABLET PO (21:29)
[2021-11-18 21:41] LABS: Bedside Glucose 85 mg/dL (74-106)
[2021-11-19] VITALS (10 sets, daily range): BP systolic 121–142; BP diastolic 55–66; PULSE 71–85; RESP 16–20; TEMP 36.6–36.8; O2SAT 97–100
[2021-11-19] MEDS: Acetaminophen 500 MG Tablet 1000 MG PO (06:40)
[2021-11-19] MEDS: Dicyclomine 10 MG Capsule 20 MG PO ×3 (06:41→20:53)
[2021-11-19 07:00] LABS: Bedside Glucose 127 mg/dL (74-106)
--- NOTE | 2021-11-19 08:03 | CASEMGMT ---
Discharge Sweep Molder Roula Badillo/caitlyn butcher's assistant reached out to Christopher at [facility]. Referral is being reviewed by RACHEL. Will follow up. Plan: [facility], Waiting Acceptance. Roula Antoine Discharge Sweep Molder
--- NOTE | 2021-11-19 08:55 | CASEMGMT ---
Discharge Brushing Operator Christopher from [facility] called Roula d/c . Patient has been accepted at [facility]. Pre-cert has been started today. PRAVIN Purdy has been notified. Plan: [facility], Waiting pre-cert. Roula Antoine Discharge Brushing Operator
[2021-11-19] MEDS: Pantoprazole Sodium 40 MG Tablet PO (09:06)
[2021-11-19] MEDS: LINAGLIPTIN 5 MG TABLET PO (09:06)
[2021-11-19] MEDS: Cholecalciferol (Vit D3) 125 MCG CAPSULE (5,000 UNITS) PO (09:06)
[2021-11-19] MEDS: Pioglitazone Hydrochloride 30 MG Tablet PO (09:06)
[2021-11-19] MEDS: DULoxetine Hcl 30 MG Capsule PO ×2 (09:06→20:56)
[2021-11-19] MEDS: Enoxaparin 40 MG/0.4 ML Syringe SC (09:07)
[2021-11-19] MEDS: Lidocaine 5% Patch 2 PATCH TOPICAL (09:07)
[2021-11-19] MEDS: Aspirin 81 MG TAB.CHEW PO (09:07)
[2021-11-19] MEDS: Ondansetron 4 MG/2 ML Vial IV (09:13)
[2021-11-19] MEDS: Modafinil 200 MG Tablet PO (09:15)
[2021-11-19] MEDS: 0.9% Normal Saline 1,000 ML 100 ML IV (09:18)
--- NOTE | 2021-11-19 09:19 | CASEMGMT ---
PRAVIN notified patient that [facility] has accepted her and she will be at [facility] until her insurance approves her. Patient verbalized understanding. Plan: d/c to [facility] pending insurance approval. Rajwinder SANCHEZ
[2021-11-19] MEDS: Insulin Lispro 100 UNIT/ML INSULN.PEN SC ×3 (11:16→21:03)
[2021-11-19] MEDS: Pramipexole Di-HCl 0.5 MG Tablet PO (11:18)
[2021-11-19] MEDS: Ferrous Sulfate 325 MG Tablet PO (11:18)
[2021-11-19 11:45] LABS: Bedside Glucose 230 mg/dL (74-106)
[2021-11-19] MEDS: HYDROcodone Bitartrate/Apap 5/325 Tablet PO ×2 (14:03→20:57)
[2021-11-19] MEDS: Phenazopyridine 95 MG Tablet PO ×2 (14:56→20:54)
[2021-11-19] MEDS: Glimepiride 4 MG Tablet PO (16:04)
[2021-11-19 16:25] LABS: Bedside Glucose 158 mg/dL (74-106)
--- NOTE | 2021-11-19 17:57 | PCM.PN.HOSP ---
Subjective Subjective Patient was seen and examined today, she states that when she fell she struck her neck and wondered about getting neck x-rays, I told her that I did not feel at this time that she needed neck x-rays performed unless she had severe weakness in her arms, patient then tried to convince me that she had severe weakness in her arms but this was not evident on examination and not passed on by nursing to this examiner. On examination of the back of the patient's neck area where she complained of pain, there is no bruising or swelling of the area at all. Patient has good range of motion in her neck to flexion and rotation. Patient requested some pain meds to take for her neck, she takes Lonsdale at home, I have agreed to administer Lonsdale for chronic pain while she is in the hospital. Patient requested Pyridium for urinary discomfort, I have elected to place her on 95 mg 3 times a day for now. Patient's urine culture grew out small numbers of bacteria, I stopped her Rocephin today and stopped her fluid administration because her IV came out and they were unable to find a suitable IV site, I do not think the patient currently needs IV fluids or IV antibiotics. Objective Data Objective Data Vital Signs: Vital Signs Temp Pulse Resp BP Pulse Ox O2 Del Method O2 Flow Rate 98.1 F 72 16 139/65 H 100 Room Air 2 11/19/21 15:01 11/19/21 15:01 11/19/21 15:01 11/19/21 15:01 11/19/21 15:01 11/19/21 15:01 11/17/21 07:22 Oxygen Flow Rate (L/min) 2 Oxygen Delivery Method Room Air Weight: 72.5 kg Body Mass Index (BMI) 29.2 Intake & Output: Intake and Output for Last 24 Hours 11/17/21 11/18/21 11/19/21 23:59 23:59 23:59 Intake Total 3651.67 / 3651.67 3876.67 / 4076.67 2100 / 2100 Output Total 800 / 800 400 / 400 Balance 3651.67 / 3651.67 3076.67 / 3276.67 1700 / 1700 Lab / Micro Data Result Diagrams: 11/17/21 05:20 11/17/21 05:20 Labs: Laboratory Results - last 24 hr 11/18/21 21:15: POC Glucose 85 11/19/21 06:31: POC Glucose 127 H 11/19/21 11:14: POC Glucose 230 H 11/19/21 16:02: POC Glucose 158 H Micro: Microbiology 11/16/21 20:25 Blood Culture (Wb) - Anticubital Right Blood Culture - Preliminary No growth in 48 hours. 11/16/21 19:40 Blood Culture (Wb) - Right Wrist Blood Culture - Preliminary No growth in 48 hours. 11/16/21 20:45 Urine, Clean Catch Urine Culture - Final Gram negative mahendra GPC Poss Enterococcus sp 11/17/21 08:25 Stool C. difficile DNA Amplification - Final 11/17/21 08:25 Stool Enteric Bacteriology - Final Rhythm Strip Rhythm Strip: Sinus Rhythm Physical Exam Const alert, oriented x3, no apparent distress and average body habitus General Appearance: cooperative, well kempt and well developed Orientation / Consciousness: awake, oriented to person, oriented to place and oriented to time HEENT normocephalic and moist oral mucous membranes Eyes PERRL, EOMs intact bilaterally and conjunctivae normal Neck supple, no JVD and thyroid normal General: trachea midline Resp normal respiratory effort, no retractions, no use of accessory muscles and clear to auscultation bilaterally Auscultation: Negative for rales, rhonchi or wheezes Cardio regular rate, regular rhythm, S1 normal heart sound, S2 normal heart sound, no murmurs, no rub and no gallops GI normal to inspection, nondistended, normoactive bowel sounds, soft to palpation, non-tender and non-distended Extremity no clubbing, cyanosis or edema Skin no rashes or lesions noted General Skin Exam: no breakdown Neuro oriented x3, CN's II-XII intact bilaterally, no focal motor deficits and no sensory deficits noted Sensorium / Orientation: awake and alert Speech: speech normal Psych affect normal Assessment & Plan Assessment/Plan (1) Acute UTI: PLAN: Plan 1. Presyncope secondary to hypotension-continue to monitor the patient, she has not symptomatic today #2 acute diarrhea-etiology unclear, patient states her symptoms are much improved since I changed her medication, I will keep her on the present medication #3 Bacteriuria-I do not think this is significant at this time, I have taken the patient off Rocephin #4 type 2 diabetes-patient will remain on her current medications, sliding scale insulin is being given #5 acute debility-PT and OT are going to be seeing the patient, we will try for placement in a correction facility #6 essential hypertension-patient's blood pressure will be monitored at this time, her lisinopril is being held at this time #7 paroxysmal atrial fibrillation-patient's carvedilol is being held currently #8 chronic use of oral anticoagulants-patient states that she is on Eliquis at home, I have restarted her Eliquis at this time in the hospital Charges/Coding Visit Charges OBSV E&M: 53749 Subsequent observation care L3
[2021-11-19] MEDS: Donepezil HCl 10 MG Tablet PO (20:52)
[2021-11-19] MEDS: APIXABAN 5 MG TABLET PO (20:54)
[2021-11-19] MEDS: Pramipexole Di-HCl 1 MG Tablet PO (20:56)
[2021-11-19] MEDS: Atorvastatin Calcium 40 MG Tablet PO (20:56)
[2021-11-19] MEDS: MELATONIN 3 MG TABLET PO (20:57)
[2021-11-19 22:01] LABS: Bedside Glucose 158 mg/dL (74-106)
[2021-11-20 03:00] VITALS: BP 159/72; PULSE 73; PULSE 76; RESP 18; TEMP 36.6; O2SAT 100
[2021-11-20] MEDS: Ondansetron 8 MG Tablet PO (03:06)
[2021-11-20] MEDS: HYDROcodone Bitartrate/Apap 5/325 Tablet PO ×2 (03:06→11:01)
[2021-11-20] MEDS: Insulin Lispro 100 UNIT/ML INSULN.PEN SC ×2 (06:11→11:08)
[2021-11-20] MEDS: Dicyclomine 10 MG Capsule 20 MG PO ×2 (06:13→13:17)
[2021-11-20] MEDS: Phenazopyridine 95 MG Tablet PO ×2 (06:14→13:17)
[2021-11-20 06:45] LABS: Bedside Glucose 195 mg/dL (74-106)
[2021-11-20 07:30] VITALS: PULSE 68
[2021-11-20] MEDS: Glimepiride 4 MG Tablet PO (07:52)
[2021-11-20] MEDS: Aspirin 81 MG TAB.CHEW PO (07:53)
[2021-11-20] MEDS: Pioglitazone Hydrochloride 30 MG Tablet PO (07:53)
[2021-11-20] MEDS: APIXABAN 5 MG TABLET PO (07:53)
[2021-11-20] MEDS: LINAGLIPTIN 5 MG TABLET PO (07:54)
[2021-11-20] MEDS: Cholecalciferol (Vit D3) 125 MCG CAPSULE (5,000 UNITS) PO (07:54)
[2021-11-20] MEDS: Pantoprazole Sodium 40 MG Tablet PO (07:54)
[2021-11-20] MEDS: DULoxetine Hcl 30 MG Capsule PO (07:54)
[2021-11-20 07:55] VITALS: BP 150/68; PULSE 65; RESP 16; TEMP 36.9; O2SAT 100
[2021-11-20] MEDS: Lidocaine 5% Patch 2 PATCH TOPICAL (07:55)
[2021-11-20] MEDS: Modafinil 200 MG Tablet PO (07:58)
--- NOTE | 2021-11-20 08:08 | CASEMGMT ---
Discharge Chief Information Security Officer Christopher reached out from [facility]. [facility] has received pre-cert. PRAVIN Purdy notified. Plan: [facility]. Roula Antoine Discharge Chief Information Security Officer
--- NOTE | 2021-11-20 10:33 | CASEMGMT ---
Pt is active with [facility] for SN, PT and they are aware of pt discharge to [facility] today. Darrin AJ CM
[2021-11-20] MEDS: Pramipexole Di-HCl 0.5 MG Tablet PO (11:02)
[2021-11-20 11:30] VITALS: PULSE 75
[2021-11-20 11:30] LABS: Bedside Glucose 191 mg/dL (74-106)
--- NOTE | 2021-11-20 11:38 | CASEMGMT ---
SW notified patient that her insurance approved her to go to [facility] and she will go today. SW told patient it will not be until later today. SW will notify physician. PRAVIN also asked RN to obtain a COVID test. Await orders and COVID test. PRAVIN will have to call [facility] to set up transport. Rajwinder Benavidez MOTOR ANALYST DANIEL
--- NOTE | 2021-11-20 13:46 | CASEMGMT ---
SW called [facility] to set up transport. SW requested knot picker cloth of 5p. SW also said patient will need a wheelchair and [facility] preferred provider is [facility]. SW was told that she will make a note regarding these requests, but she cannot guarantee either. SW requested a 5p knot picker cloth. [place] [id number]. [phone]. Await orders. Rajwinder SANCHEZ
--- NOTE | 2021-11-20 13:50 | TREXTCAR_ITS ---
Diet Diet Order/Speech Therapy: 11/16/21 23:24 Diet: Cardiac: Calorie-Controlled Food consistency:: Regular Liquid Consistency:: Regular/Thin How many daily calories?: 1800 calorie Routine Orders/Code Status Code Status: Full Code Wound(s) BUE: Wound Type: Skin Tear Therapies Weight Bearing: Full weight bearing Physical Therapy: Eval and Treat Occupational Therapy: Eval and Treat Problem/Diagnosis (1) Chronic neck pain with history of cervical spinal surgery: Status: Chronic Code(s): M54.2 - Cervicalgia; G89.28 - Other chronic postprocedural pain; Z98.890 - Other specified postprocedural states Plan 1. Presyncope secondary to hypotension-continue to monitor the patient, she has not symptomatic today #2 acute diarrhea-etiology unclear, patient states her symptoms are much improved since I changed her medication, I will keep her on the present medication #3 Bacteriuria-I do not think this is significant at this time, I have taken the patient off Rocephin #4 type 2 diabetes-patient will remain on her current medications, sliding scale insulin is being given #5 acute debility-PT and OT are going to be seeing the patient, we will try for placement in a care home facility #6 essential hypertension-patient's blood pressure will be monitored at this time, her lisinopril is being held at this time #7 paroxysmal atrial fibrillation #8 chronic use of oral anticoagulants-patient states that she is on Eliquis at home, I have restarted her Eliquis at this time in the hospital #9 history of MS per patient-patient states she was placed on Aricept for this by her MS physician #10 chronic pain syndrome secondary to degenerative disc disease of the cervical spine #11 medicine seeking behavior-patient has been known to request medications and testing frequently Allergies/Procedures Done in Hospital Allergies indomethacin [From Indocin] Allergy (Verified 11/16/21 19:03) Hives indomethacin sodium [From Indocin] Allergy (Verified 11/16/21 19:03) Hives iodine Allergy (Verified 11/16/21 19:03) Hives propoxyphene napsylate [From Darvocet-N] Allergy (Verified 11/16/21 19:03) Out of control aripiprazole [From Abilify] Adverse Reaction (Verified 11/16/21 19:03) Other drool uncontrollably aspirin Adverse Reaction (Verified 11/16/21 19:03) Upset Stomach when taken in high doses clindamycin Adverse Reaction (Verified 11/16/21 19:03) Nausea metformin Adverse Reaction (Verified 11/16/21 19:03) Other IT CAUSES MY KIDNEYS TO DO WEIRD THINGS sumatriptan [From Imitrex] Adverse Reaction (Verified 11/16/21 19:03) Vomiting Procedures: None Type of Care/Length of Stay Estimated LOS: Convalescent Care Less Than 30 days Type of Care Needed: Skilled Rehab Potential: Good Prognosis: Good Additional Orders/Day of Discharge H&P will serve as current which was dated: 11/16/21 Day of Discharge: 11/20/21 Discharge Plan Admission Admit Date/Time: 11/16/21 22:03 Primary Reason for Your Visit: Acute debility, presyncope Attending Provider: Carlton Fisher Primary Care Provider: Tom Sherman Consulting Providers: Apolinar Zavala ; Michelle Sawyer Instructions Additional Instructions / Restrictions: Fingerstick blood sugars AC nightly, coverage with sliding scale Humalog subcu: 200?250: 5 units, 251?300: 8 units, 301?350: 12 units Discharge Orders/Prescriptions Prescriptions: New albuterol sulfate 2.5 mg /3 mL (0.083 %) Solution For Nebulization 2.5 mg inhalation Q2H PRN PRN (Reason: SOB/Wheezing) Qty: 0 0RF pantoprazole 40 mg Tablet,Delayed Release (Dr/Ec) 40 mg PO DAILY Qty: 0 0RF Continued Prolia 60 mg/mL syringe 60 mg subcut [id number] Qty: 1 1RF vibegron 75 mg tablet 75 mg PO DAILY ropinirole 1 mg tablet 1 mg PO DAILY Qty: 90 2RF Rx Instructions: 1 mg PO Lunch ropinirole 2 mg tablet 2 mg PO QHS Qty: 90 1RF Rx Instructions: administer 1-3 hours before bedtime duloxetine [Cymbalta] 30 mg capsule,delayed release(DR/EC) 30 mg PO BID Qty: 180 2RF acidophilus-pectin, citrus 100 million cell-10 mg capsule 1 cap PO DAILY Qty: 90 3RF dicyclomine 20 mg tablet 20 mg PO BID PRN (Reason: abdominal discomfort) Qty: 180 2RF isosorbide mononitrate 30 mg tablet extended release 24 hr 30 mg PO DAILY cholecalciferol (vitamin D3) 125 mcg (5,000 unit) capsule 125 mcg PO DAILY ferrous sulfate 325 mg (65 mg iron) tablet 325 mg PO Q OTHER DAY eluxadoline 100 mg tablet 100 mg PO DAILY lisinopril 20 mg tablet 20 mg PO BID Qty: 180 2RF Rx Instructions: Hold for SBP less than 120 mmHg modafinil 200 MG tablet 200 mg PO DAILY acetaminophen 500 MG tablet 1,000 mg PO TID PRN (Reason: pain -02/03) Qty: 1 0RF Rx Instructions: alternate with ibuprofen ondansetron 4 MG tablet 4 mg PO Q8H PRN PRN (Reason: Nausea) Qty: 10 0RF aspirin 81 mg Tablet,Chewable 1 tab PO DAILY donepezil [Aricept] 10 mg tablet 2 tab PO DAILY Label Comments: TAKE 2 TABLETS BY MOUTH DAILY Eliquis 5 mg tablet 5 mg PO BID Label Comments: TAKE 1 TABLET BY MOUTH TWICE DAILY hydrocodone-acetaminophen 5-325 mg tablet 1 tab PO Q8H PRN (Reason: Pain) 7 Days Qty: 10 0RF sitagliptin 100 mg tablet 100 mg PO DAILY Qty: 30 1RF pioglitazone 30 mg tablet 30 mg PO DAILY Qty: 90 1RF glimepiride 4 mg tablet 4 mg PO BID Qty: 60 3RF Label Comments: diabetes; 2100. Rx Instructions: Hold if glucose less than 130 mg/dl ascorbic acid (vitamin C) 500 mg tablet,chewable 500 mg PO DAILY Qty: 30 0RF atorvastatin 40 mg tablet 40 mg PO DAILY Qty: 30 11RF carvedilol 6.25 mg tablet 6.25 mg PO BID Qty: 60 11RF Rx Instructions: must administer with a meal/food Discontinued nitroglycerin 0.4 mg tablet, sublingual 0.4 mg SL Q5-15M Qty: 25 3RF Rx Instructions: one tablet under the tongue for chest pain not to exceed 3 tablets, 5-15 minutes apart albuterol sulfate 90 mcg/actuation HFA aerosol inhaler 2 puff INHALATION Q6H PRN PRN (Reason: Sob &/Or Wheezing) Qty: 8.5 2RF calcium carbonate 600 mg calcium (1,500 mg) tablet 600 mg PO DAILY pantoprazole [address] for susp in packet 40 mg PO DAILY (DME) Accu-Chek Ada Plus test strp Strip See Rx Instructions .ROUTE .MEDSUPPLY Qty: 100 3RF Rx Instructions: As directed, check daily for type 2 DM sucralfate 1 gram tablet 1 g PO 4X/DAY Qty: 120 2RF hydroxyzine HCl 50 mg tablet 50 mg PO .QID Qty: 120 2RF (DME) Ultra-Light Rollator Misc See Rx Instructions .Route Qty: 1 0RF Rx Instructions: As directed Referrals / Follow Up: Tom Sherman MD [Primary Care Provider] - Disposition Disposition (needs filled in before D/C Order can be placed): Intermediate Facility
[2021-11-20 14:30] VITALS: BP 137/65; PULSE 76; RESP 18; TEMP 36.8; O2SAT 100
--- NOTE | 2021-11-20 14:57 | PHA.DC.MR ---
Pharmacy Service has performed discharge medication reconciliation for this patient. The patient's discharge medication list was reviewed for discrepancies and discrepancies were resolved. Home Medications modafinil 200 mg tablet 200 mg PO DAILY to stay awake 12/12/19 acetaminophen 500 mg tablet 1,000 mg PO TID PRN pain 1-02/03 #1 TAB 07/29/20 denosumab 60 mg/mL subcutaneous syringe (Prolia) 60 mg subcut [id number] #1 mL 12/25/20 vibegron 75 mg tablet 75 mg PO DAILY 07/03/21 ropinirole 1 mg tablet 1 mg PO DAILY restless legs #90 tabs 08/08/21 ropinirole 2 mg tablet 2 mg PO QHS #90 tabs 08/08/21 pioglitazone 30 mg tablet 30 mg PO DAILY diabetes #90 tabs 09/05/21 sitagliptin 100 mg tablet 100 mg PO DAILY #30 tabs 09/05/21 ascorbic acid (vitamin C) 500 mg chewable tablet 500 mg PO DAILY ##30 09/12/21 glimepiride 4 mg tablet 4 mg PO BID BLOOD SUGAR #60 tabs 09/12/21 acidophilus 100 million cell-pectin, citrus 10 mg capsule 1 cap PO DAILY supplement #90 caps 09/20/21 duloxetine 30 mg capsule,delayed release (Cymbalta) 30 mg PO BID mental health #180 caps 09/20/21 ondansetron 4 mg disintegrating tablet 4 mg PO Q8H PRN PRN Nausea #10 tabs 10/07/21 dicyclomine 20 mg tablet 20 mg PO BID PRN abdominal discomfort #180 tabs 10/10/21 atorvastatin 40 mg tablet 40 mg PO DAILY #30 tabs 10/30/21 cholecalciferol (vitamin D3) 125 mcg (5,000 unit) capsule 125 mcg PO DAILY 11/05/21 eluxadoline 100 mg tablet 100 mg PO DAILY 11/05/21 ferrous sulfate 325 mg (65 mg iron) tablet 325 mg PO Q OTHER DAY 11/05/21 isosorbide mononitrate 30 mg tablet,extended release 24 hr 30 mg PO DAILY 11/05/21 lisinopril 20 mg tablet 20 mg PO BID BLOOD PRESSURE #180 tabs 11/05/21 carvedilol 6.25 mg tablet 6.25 mg PO BID dose reduced while in [facility] #60 tabs 11/08/21 aspirin 81 mg chewable tablet 1 tab PO DAILY 11/16/21 donepezil 10 mg tablet (Aricept) 2 tab PO DAILY 11/17/21 apixaban 5 mg tablet (Eliquis) 5 mg PO BID 11/19/21 albuterol sulfate 2.5 mg/3 mL (0.083 %) solution for nebulization 2.5 mg (3 mL) inhalation Q2H PRN PRN SOB/Wheezing #0 mL 11/20/21 hydrocodone-acetaminophen 5-325mg 5mg-325mg 1 tab PO Q8H PRN Pain 7 days #10 tabs 11/20/21 pantoprazole 40 mg tablet,delayed release 40 mg PO DAILY #0 tabs 11/20/21
--- NOTE | 2021-11-20 15:36 | CASEMGMT ---
[facility]AV[facility] called [facility] and [facility]. PRAVIN then checked [facility] online schedule and [employer] picket labor [employer] is listed. PRAVIN notified RN, legal secretary receptionist, and patient. PRAVIN also called and notified Milvia at [facility]. PRAVIN faxed orders to [facility]. SW completed a PASRR as patient is observation status. Plan: d/c to [facility] under skilled level of care on a PASRR. [facility] patient via [facility] van. Transport was arranged through [employer] as required by patient's insurance. Rajwinder Benavidez SYSTEMS COORDINATOR DANIEL
--- NOTE | 2021-11-20 15:57 | NURSING ---
report called to JEAN MARIE Velazquez at [facility] for discharge.
--- NOTE | 2021-11-20 19:50 | DS.PCM_ITS ---
Providers Date of Admission: 11/16/21 Date of Discharge: 11/20/21 Primary Care Physician: Dr. Tom Sherman MD Reason For Visit: PRESYNCOPE Diagnosis Discharge Diagnosis (1) Chronic neck pain with history of cervical spinal surgery: Status: Chronic Code(s): M54.2 - Cervicalgia; G89.28 - Other chronic postprocedural pain; Z98.890 - Other specified postprocedural states Plan 1. Presyncope secondary to hypotension-continue to monitor the patient, she has not symptomatic today #2 acute diarrhea-etiology unclear, patient states her symptoms are much improved since I changed her medication, I will keep her on the present medication #3 Bacteriuria-I do not think this is significant at this time, I have taken the patient off Rocephin #4 type 2 diabetes-patient will remain on her current medications, sliding scale insulin is being given #5 acute debility-PT and OT are going to be seeing the patient, we will try for placement in a longterm facility #6 essential hypertension-patient's blood pressure will be monitored at this time, her lisinopril is being held at this time #7 paroxysmal atrial fibrillation #8 chronic use of oral anticoagulants-patient states that she is on Eliquis at home, I have restarted her Eliquis at this time in the hospital #9 history of MS per patient-patient states she was placed on Aricept for this by her MS physician #10 chronic pain syndrome secondary to degenerative disc disease of the cervical spine #11 medicine seeking behavior-patient has been known to request medications and testing frequently Urinary tract infection was ruled out Medications at Discharge Home Medications modafinil 200 mg tablet 200 mg PO DAILY to stay awake 12/12/19 acetaminophen 500 mg tablet 1,000 mg PO TID PRN pain 1-02/03 #1 TAB 07/29/20 denosumab 60 mg/mL subcutaneous syringe (Prolia) 60 mg subcut [id number] #1 mL 12/25/20 vibegron 75 mg tablet 75 mg PO DAILY 07/03/21 ropinirole 1 mg tablet 1 mg PO DAILY restless legs #90 tabs 08/08/21 ropinirole 2 mg tablet 2 mg PO QHS #90 tabs 08/08/21 pioglitazone 30 mg tablet 30 mg PO DAILY diabetes #90 tabs 09/05/21 sitagliptin 100 mg tablet 100 mg PO DAILY #30 tabs 09/05/21 ascorbic acid (vitamin C) 500 mg chewable tablet 500 mg PO DAILY ##30 09/12/21 glimepiride 4 mg tablet 4 mg PO BID BLOOD SUGAR #60 tabs 09/12/21 acidophilus 100 million cell-pectin, citrus 10 mg capsule 1 cap PO DAILY supplement #90 caps 09/20/21 duloxetine 30 mg capsule,delayed release (Cymbalta) 30 mg PO BID mental health #180 caps 09/20/21 ondansetron 4 mg disintegrating tablet 4 mg PO Q8H PRN PRN Nausea #10 tabs 10/07/21 dicyclomine 20 mg tablet 20 mg PO BID PRN abdominal discomfort #180 tabs 10/10/21 atorvastatin 40 mg tablet 40 mg PO DAILY #30 tabs 10/30/21 cholecalciferol (vitamin D3) 125 mcg (5,000 unit) capsule 125 mcg PO DAILY 11/05/21 eluxadoline 100 mg tablet 100 mg PO DAILY 11/05/21 ferrous sulfate 325 mg (65 mg iron) tablet 325 mg PO Q OTHER DAY 11/05/21 isosorbide mononitrate 30 mg tablet,extended release 24 hr 30 mg PO DAILY 0 11/05/21 lisinopril 20 mg tablet 20 mg PO BID BLOOD PRESSURE #180 tabs 11/05/21 carvedilol 6.25 mg tablet 6.25 mg PO BID dose reduced while in [facility] #60 tabs 11/08/21 aspirin 81 mg chewable tablet 1 tab PO DAILY 11/16/21 donepezil 10 mg tablet (Aricept) 2 tab PO DAILY 11/17/21 apixaban 5 mg tablet (Eliquis) 5 mg PO BID 11/19/21 albuterol sulfate 2.5 mg/3 mL (0.083 %) solution for nebulization 2.5 mg (3 mL) inhalation Q2H PRN PRN SOB/Wheezing #0 mL 11/20/21 hydrocodone-acetaminophen 5-325mg 5mg-325mg 1 tab PO Q8H PRN Pain 7 days #10 tabs 11/20/21 pantoprazole 40 mg tablet,delayed release 40 mg PO DAILY #0 tabs 11/20/21 Hospital Course Operations None Procedures None Summary of Care Provided Minutes Spent on Discharge: 30 Hospital Course: This 65-year-old white female was seen in the emergency room at [facility] after being brought in by squad following an episode of weakness while shopping at a local [employer] store. Patient gave a history of being recently admitted to the main campus at [facility] for several days following episode of hypotension. She then said she returned home but was then admitted for about 12 days it [facility]. She had been discharged home yesterday and was diagnosed with a urinary tract infection and was currently taking Keflex. She stated she was at the [employer] store pushing a cart when her knees got weak and she went to the floor. Work-up in the ER showed an elevated white blood cell count at 11.2, lactic acid was elevated at 2.5, BUN was 22 and creatinine was 1.32. Urinalysis showed greater than 100 white cells and positive leukocyte esterase but no bacteria. Chest x-ray showed no acute process, patient was initially hypotensive in the ER and a manual blood pressure was performed which was normal at 112/74. Patient was given IV Rocephin and she was placed in observation status on PCU. Patient was noted to be on a very long medication list when she was admitted to the hospital, I went through these medications and attempted to discontinue Soma which I thought were not of benefit to the patient. Patient stated the next day that she could not go home because she felt too weak and requested placement in a longterm facility, she was seen by PT and OT and it was felt she would benefit from inpatient rehab services at a longterm facility. Patient complained of chronic pain during her stay in the hospital, she complained of weakness in her arms but had no visible weakness during my examination or weakness that was noted by nursing. Patient has a history of cervical fusion according to her and history of MS. This examiner felt that the patient had a behavior of seeking medication and/or testing. On 11/20/2021, patient was seen and examined: On examination she appeared older than her stated age, she does not appear to be in any distress. Vital signs as documented. Skin warm and dry and without overt rashes. Neck without JVD, thyroid appears normal, trachea is midline, neck is supple. Lungs clear, normal air movement was noted. Heart exam notable for regular rhythm, normal sounds and absence of murmurs, rubs or gallops. Abdomen unremarkable and without evidence of organomegaly, masses, or abdominal aortic enlargement, bowel sounds are present in all 4 quadrants, no abdominal tenderness was noted. Extremities nonedematous, no cyanosis was noted, no clubbing was noted. Neuro: Cranial nerves II through XII are grossly intact, no focal motor deficits were noted, sensation to light touch and pinprick is intact, motor exam 5/5 throughout. Psych: Patient is alert and oriented x3, she does not appear anxious or depressed, she does not appear agitated. Patient was discharged in stable condition on 11/20/2021. Weight / BMI Weight Weight: 72.5 kg Body Mass Index (BMI) 29.2 ABG / Lab / Microbiology Data Result Diagrams: 11/17/21 05:20 11/17/21 05:20 Laboratory: Laboratory Results - last 24 hr 11/19/21 21:02: POC Glucose 158 H 11/20/21 06:10: POC Glucose 195 H 11/20/21 11:07: POC Glucose 191 H Microbiology: Microbiology 11/20/21 12:03 Nasal Secretion SARS-CoV-2 Antigen (Rapid) - Final 11/16/21 20:25 Blood Culture (Wb) - Anticubital Right Blood Culture - Preliminary No growth in 48 hours. 11/16/21 19:40 Blood Culture (Wb) - Right Wrist Blood Culture - Preliminary No growth in 48 hours. 11/16/21 20:45 Urine, Clean Catch Urine Culture - Final Gram negative mahendra [facility]PC Poss Enterococcus sp 11/17/21 08:25 Stool C. difficile DNA Amplification - Final 11/17/21 08:25 Stool Enteric Bacteriology - Final Meaningful Use Info Meaningful Use Diagnoses (Choose all that apply): None applicable Discharge Plan Admission Admit Date/Time: 11/16/21 22:03 Primary Reason for Your Visit: Acute debility, presyncope Attending Provider: Carlton Fisher Primary Care Provider: Tom Sherman Consulting Providers: Apolinar Zavala ; Michelle Sawyer Instructions Additional Instructions / Restrictions: Fingerstick blood sugars AC nightly, coverage with sliding scale Humalog subcu: 200?250: 5 units, 251?300: 8 units, 301?350: 12 units Discharge Orders/Prescriptions Prescriptions: New albuterol sulfate 2.5 mg /3 mL (0.083 %) Solution For Nebulization 2.5 mg inhalation Q2H PRN PRN (Reason: SOB/Wheezing) Qty: 0 0RF pantoprazole 40 mg Tablet,Delayed Release (Dr/Ec) 40 mg PO DAILY Qty: 0 0RF Continued Prolia 60 mg/mL syringe 60 mg subcut [id number] Qty: 1 1RF vibegron 75 mg tablet 75 mg PO DAILY ropinirole 1 mg tablet 1 mg PO DAILY Qty: 90 2RF Rx Instructions: 1 mg PO Lunch ropinirole 2 mg tablet 2 mg PO QHS Qty: 90 1RF Rx Instructions: administer 1-3 hours before bedtime duloxetine [Cymbalta] 30 mg capsule,delayed release(DR/EC) 30 mg PO BID Qty: 180 2RF acidophilus-pectin, citrus 100 million cell-10 mg capsule 1 cap PO DAILY Qty: 90 3RF dicyclomine 20 mg tablet 20 mg PO BID PRN (Reason: abdominal discomfort) Qty: 180 2RF isosorbide mononitrate 30 mg tablet extended release 24 hr 30 mg PO DAILY cholecalciferol (vitamin D3) 125 mcg (5,000 unit) capsule 125 mcg PO DAILY ferrous sulfate 325 mg (65 mg iron) tablet 325 mg PO Q OTHER DAY eluxadoline 100 mg tablet 100 mg PO DAILY lisinopril 20 mg tablet 20 mg PO BID Qty: 180 2RF Rx Instructions: Hold for SBP less than 120 mmHg modafinil 200 MG tablet 200 mg PO DAILY acetaminophen 500 MG tablet 1,000 mg PO TID PRN (Reason: pain -02/03) Qty: 1 0RF Rx Instructions: alternate with ibuprofen ondansetron 4 MG tablet 4 mg PO Q8H PRN PRN (Reason: Nausea) Qty: 10 0RF aspirin 81 mg Tablet,Chewable 1 tab PO DAILY donepezil [Aricept] 10 mg tablet 2 tab PO DAILY Label Comments: TAKE 2 TABLETS BY MOUTH DAILY Eliquis 5 mg tablet 5 mg PO BID Label Comments: TAKE 1 TABLET BY MOUTH TWICE DAILY hydrocodone-acetaminophen 5-325 mg tablet 1 tab PO Q8H PRN (Reason: Pain) 7 Days Qty: 10 0RF sitagliptin 100 mg tablet 100 mg PO DAILY Qty: 30 1RF pioglitazone 30 mg tablet 30 mg PO DAILY Qty: 90 1RF glimepiride 4 mg tablet 4 mg PO BID Qty: 60 3RF Label Comments: diabetes; 2100. Rx Instructions: Hold if glucose less than 130 mg/dl ascorbic acid (vitamin C) 500 mg tablet,chewable 500 mg PO DAILY Qty: 30 0RF atorvastatin 40 mg tablet 40 mg PO DAILY Qty: 30 11RF carvedilol 6.25 mg tablet 6.25 mg PO BID Qty: 60 11RF Rx Instructions: must administer with a meal/food Discontinued nitroglycerin 0.4 mg tablet, sublingual 0.4 mg SL Q5-15M Qty: 25 3RF Rx Instructions: one tablet under the tongue for chest pain not to exceed 3 tablets, 5-15 minutes apart albuterol sulfate 90 mcg/actuation HFA aerosol inhaler 2 puff INHALATION Q6H PRN PRN (Reason: Sob &/Or Wheezing) Qty: 8.5 2RF calcium carbonate 600 mg calcium (1,500 mg) tablet 600 mg PO DAILY pantoprazole [address] for susp in packet 40 mg PO DAILY (DME) Accu-Chek Ada Plus test strp Strip See Rx Instructions .ROUTE .MEDSUPPLY Qty: 100 3RF Rx Instructions: As directed, check daily for type 2 DM sucralfate 1 gram tablet 1 g PO 4X/DAY Qty: 120 2RF hydroxyzine HCl 50 mg tablet 50 mg PO .QID Qty: 120 2RF (DME) Ultra-Light Rollator Misc See Rx Instructions .Route Qty: 1 0RF Rx Instructions: As directed Referrals / Follow Up: Tom Sherman MD [Primary Care Provider] - Disposition Disposition (needs filled in before D/C Order can be placed): Long Term Facility Charges/Coding Visit Charges OBSV E&M: 07942 Observation care discharge
== END 2021-11-20 14:33 | disposition skilled nursing facility (03) ==
LOC: ED 22:10 → PCU 22:25
PROVIDERS: Internal Medicine; Admitting Provider Hospitalist; Emergency Provider Emergency Medicine; PCP Internal Medicine; Visit Provider Internal Medicine
DX: R55 Syncope and collapse (principal); G35 Multiple sclerosis; J44.9 Chronic obstructive pulmonary disease, unspecified; I11.0 Hypertensive heart disease with heart failure; I50.22 Chronic systolic (congestive) heart failure; E11.65 Type 2 diabetes mellitus with hyperglycemia; I48.0 Paroxysmal atrial fibrillation; I25.5 Ischemic cardiomyopathy; Z79.84 Long term (current) use of oral hypoglycemic drugs; R53.81 Other malaise; I25.10 Atherosclerotic heart disease of native coronary artery without angina pectoris; G89.4 Chronic pain syndrome; Z79.82 Long term (current) use of aspirin; Z79.899 Other long term (current) drug therapy; Z79.01 Long term (current) use of anticoagulants; R07.9 Chest pain, unspecified; I25.2 Old myocardial infarction; G47.33 Obstructive sleep apnea (adult) (pediatric); F17.210 Nicotine dependence, cigarettes, uncomplicated; Z87.440 Personal history of urinary (tract) infections; Z76.5 Malingerer [conscious simulation]; R19.7 Diarrhea, unspecified
CPT/HCPCS: 36415; 71045; 80048; 80053; 81001; 82962; 83605; 84484; 85025; 87040; 87086; 87088; 87426; 87493; 87506; 93005; 96361; 96365; 96366; 96372; 96375; 96376; 97110; 97116; 97162; 97166; 97535; 99218; 99285; 99406; J7030; A4216; G0378; J2405

== ENCOUNTER 2022-02-07 14:20 | Emergency (ER) | payer MEDICARE, MEDICAID, SELFPAY ==
[2016-07-13 11:45] VITALS: BMI 31.4
[2022-02-07 14:22] VITALS: BP 99/71; PULSE 70; RESP 18; TEMP 36.8; O2SAT 98; BMI 30.5
--- NOTE | 2022-02-07 14:39 | CT_ITS ---
STUDY: CT BRAIN WITHOUT CONTRAST REASON FOR EXAM: Female, 66 years old. Confusion. RADIATION DOSAGE (If Supplied By Facility): CTDIvol = ( 44.99 ) mGy, DLP = ( 829.85 ) mGycm TECHNIQUE: Transaxial CT imaging of the brain was performed without administration of intravenous contrast material. Individualized dose optimization techniques were used for this CT. COMPARISON: 06/22/2021. FINDINGS: Normal soft tissue structures. Normal calvarium. There is mild cerebral atrophy with widening of the extra-axial spaces and ventricular dilatation. 2 Normal basal ganglia and thalami. Normal brainstem. Normal cerebellum. There is no intracranial hemorrhage. There are no findings of an acute ischemic infarction. Normal visualized paranasal sinuses. CT/Brain/Head without Contrast IMPRESSION: Chronic involutional changes without evidence of acute intracranial or calvarial abnormality. No major interval change. Electronically Signed: Casey Dominguez DO at 16:49 EDT Reading Location ID and State: [facility] Tel [phone], Service support ,
--- NOTE | 2022-02-07 14:40 | EKG12_ITS ---
Test Reason : DIZZY Blood Pressure : / mmHG Vent. Rate : 062 BPM Atrial Rate : 062 BPM P-R Int : 166 ms QRS Dur : 088 ms QT Int : 378 ms P-R-T Axes : 026 -37 099 degrees QTc Int : 383 ms Normal sinus rhythm Left axis deviation Inferior infarct , age undetermined Anteroseptal infarct , age undetermined Abnormal ECG Confirmed by JACQUELINE WITT, KASSANDRA ([id number]), editor index YUNG MUNGUIA ([id number]) on 02/10/2022 9:57:42 A M Referred By: Confirmed By:LILLY PHILLIPS MD
--- NOTE | 2022-02-07 14:52 | EX.ED.DYSGE1 ---
HPI <JOHN Orourke - Last Filed: 02/07/22 18:07> History of Present Illness Chief Complaint: Weakness Narrative Narrative: 66-year-old female with PMH of HTN, HLD, CAD, DM2, A. fib, multiple sclerosis not currently on therapy presents with lightheadedness. She states last 2 days she has had urinary urgency with a small volume output. This morning she woke up around 815 2 receive a delivery. She felt fine but took Tylenol for her chronic neck pain. She went back to sleep for an hour and woke up around 10:30 AM and when ambulating with her walker to the bathroom felt off balance and lightheaded. She denies a spinning sensation. She states her vision felt blurry but she did not have her glasses on and now has no visual complaints. She had no focal motor or sensory changes. She spoke with her insurance provider who sent a nurse to the home and they recommended she come to the ED. PFSH <JOHN Orourke - Last Filed: 02/07/22 18:07> [facility] Medical History (Updated 02/07/22 @ 22:[address] Darron Carmona DO) Anemia Anemia Anxiety Apical mural thrombus with acute RI Atherosclerotic heart disease of [place] coronary artery without angina pectoris Cataracts, both eyes Cervical spinal stenosis Chronic anticoagulation Chronic back pain Chronic neck pain with history of cervical spinal surgery Chronic systolic (congestive) heart failure Closed right tibial fracture COPD (chronic obstructive pulmonary disease) Diabetes mellitus type 2 in nonobese Essential (primary) hypertension Flank pain Fracture of distal end of right tibia Hematemesis Hiatal hernia History of peptic ulcer disease History of ST elevation myocardial infarction (STEMI) Hyperglycemia due to type 2 diabetes mellitus Hyperkalemia IBS (irritable bowel syndrome) Irritable bowel syndrome with diarrhea Ischemic cardiomyopathy Left ventricular hypertrophy Major depression Multiple sclerosis Nicotine abuse Nondisplaced pilon fracture of right tibia, initial encounter for closed fracture BRYAN (obstructive sleep apnea) Osteoporosis Osteoporosis Pain of right lower extremity Paroxysmal atrial fibrillation RLS (restless legs syndrome) Suicidal ideation Tachycardia Takotsubo syndrome Type 2 diabetes mellitus Vitamin B12 deficiency Home Medications modafinil 200 mg tablet 200 mg PO DAILY to stay awake 12/12/19 [History Last Taken 08/14/20 09:00] acetaminophen 500 mg tablet 1,000 mg PO TID PRN pain 1-10/10 #1 TAB 07/29/20 [Rx Last Taken Unknown] denosumab 60 mg/mL subcutaneous syringe (Prolia) 60 mg subcut [id number] #1 mL 12/25/20 [Rx Last Taken Unknown] vibegron 75 mg tablet 75 mg PO DAILY 07/03/21 [History Last Taken Unknown] ropinirole 1 mg tablet 1 mg PO DAILY restless legs #90 tabs 08/08/21 [Rx Last Taken Unknown] ropinirole 2 mg tablet 2 mg PO QHS #90 tabs 08/08/21 [Rx Last Taken Unknown] pioglitazone 30 mg tablet 30 mg PO DAILY diabetes #90 tabs 09/05/21 [Rx Last Taken Unknown] ascorbic acid (vitamin C) 500 mg chewable tablet 500 mg PO DAILY ##30 09/12/21 [Rx Last Taken Unknown] glimepiride 4 mg tablet 4 mg PO BID BLOOD SUGAR #60 tabs 09/12/21 [Rx Last Taken Unknown] acidophilus 100 million cell-pectin, citrus 10 mg capsule 1 cap PO DAILY supplement #90 caps 09/20/21 [Rx Last Taken Unknown] duloxetine 30 mg capsule,delayed release (Cymbalta) 30 mg PO BID mental health #180 caps 09/20/21 [Rx Last Taken Unknown] ondansetron 4 mg disintegrating tablet 4 mg PO Q8H PRN PRN Nausea #10 tabs 10/07/21 [Rx Last Taken Unknown] dicyclomine 20 mg tablet 20 mg PO BID PRN abdominal discomfort #180 tabs 10/10/21 [Rx Last Taken Unknown] atorvastatin 40 mg tablet 40 mg PO DAILY #30 tabs 10/30/21 [Rx Last Taken Unknown] cholecalciferol (vitamin D3) 125 mcg (5,000 unit) capsule 125 mcg PO DAILY 11/05/21 [History Last Taken Unknown] eluxadoline 100 mg tablet 100 mg PO DAILY 11/05/21 [History Last Taken Unknown] ferrous sulfate 325 mg (65 mg iron) tablet 325 mg PO Q OTHER DAY 11/05/21 [History Last Taken Unknown] albuterol sulfate 2.5 mg/3 mL (0.083 %) solution for nebulization 2.5 mg (3 mL) inhalation Q2H PRN PRN SOB/Wheezing #0 mL 11/20/21 [Rx Last Taken Unknown] hydrocodone-acetaminophen 5-325mg 5mg-325mg 1 tab PO Q8H PRN Pain 7 days #10 tabs 11/20/21 [Rx Last Taken Unknown] pantoprazole 40 mg tablet,delayed release 40 mg PO DAILY #0 tabs 11/20/21 [Rx Last Taken Unknown] furosemide 20 mg tablet 20 mg PO QAM PRN edema #90 tabs 12/24/21 [Rx Last Taken Unknown] loperamide 2 mg tablet (Anti-Diarrheal (loperamide)) 2 mg PO Q6H PRN 12/24/21 [History Last Taken Unknown] melatonin 3 mg capsule 3 mg PO HS PRN 12/24/21 [History Last Taken Unknown] potassium chloride 20 mEq tablet,extended release 20 meq PO DAILY PRN take with lasix #90 tabs 12/24/21 [Rx Last Taken Unknown] sitagliptin 100 mg tablet 100 mg PO DAILY #90 tabs 12/24/21 [Rx Last Taken Unknown] apixaban 5 mg tablet (Eliquis) 5 mg PO DAILY #180 tabs 01/14/22 [Rx Last Taken Unknown] carvedilol 6.25 mg tablet 6.25 mg PO DAILY dose reduced while in [facility] 01/14/22 [History Last Taken Unknown] insulin lispro 100 unit/mL subcutaneous solution (Humalog U-100 Insulin) 1 sliding scale dose subcut USEASDIRECTD 01/14/22 [History Last Taken Unknown] isosorbide mononitrate 30 mg tablet,extended release 24 hr 30 mg PO BID 01/14/22 [History Last Taken Unknown] lisinopril 20 mg tablet 20 mg PO DAILY #180 tabs 01/14/22 [Rx Last Taken Unknown] donepezil 10 mg tablet (Aricept) 20 mg PO DAILY #60 tabs 01/20/22 [Rx Last Taken Unknown] sucralfate 100 mg/mL oral suspension 10 ml PO QAC #1,000 mL 01/20/22 [Rx Last Taken Unknown] hydroxyzine HCl 50 mg tablet 50 mg PO BID PRN Itching #60 tabs 01/27/22 [Rx Last Taken Unknown] cephalexin 500 mg capsule 500 mg PO BID 7 days #14 caps 02/07/22 [Rx Last Taken Unknown] Allergy/AdvReac Type Severity Reaction Status Date / Time indomethacin [From Indocin] Allergy Hives Verified 02/07/22 14:22 indomethacin sodium Allergy Hives Verified 02/07/22 14:22 [From Indocin] iodine Allergy Hives Verified 02/07/22 14:22 propoxyphene napsylate Allergy Out of Verified 02/07/22 14:22 [From Darvocet-N] control aripiprazole [From Abilify] AdvReac Other Verified 02/07/22 14:22 aspirin AdvReac Upset Verified 02/07/22 14:22 Stomach clindamycin AdvReac Nausea Verified 02/07/22 14:22 metformin AdvReac Other Verified 02/07/22 14:22 sumatriptan [From Imitrex] AdvReac Vomiting Verified 02/07/22 14:22 Family History Father Cancer Lung cancer Mother Cancer Pancreatic cancer Surgical History History of amputation of left great toe History of back surgery History of cervical discectomy History of coronary artery stent placement (04/08/16) History of endoscopy History of left heart catheterization (09/25/20) History of left knee surgery History of loop recorder (06/2014) History of tonsillectomy and adenoidectomy Social History household members: none Smoking Status: Current every day smoker tobacco type: cigarettes alcohol intake: never substance use type: does not use caffeine: Yes Type: coffee Number of servings: 1 what type of physical activity do you participate in: none and other details: Physical Therapy ROS <JOHN Orourke - Last Filed: 02/07/22 18:07> ROS ED ROS Narrative Constitutional: Negative for fever, chills, malaise. Eyes: Negative for visual change. ENT: Negative for sore throat, ear pain, rhinorrhea. CVS: Negative for palpitations, chest pain, syncope. Respiratory: Negative for shortness of breath, cough, orthopnea. GI: Negative for abdominal pain, nausea, vomiting, diarrhea, constipation, melena, hematochezia. : Positive for frequency. Negative for hematuria. Neuro: Negative for headache, motor/sensory dysfunction. Skin: Negative for rash, abscess, or wound. Musc: Negative for joint pain, swelling, trauma. Heme: Negative for easy bruising, bleeding, lymphadenopathy. EXAM <JOHN Orourke - Last Filed: 02/07/22 18:07> Physical Exam Narrative Exam Narrative: CONST: Patient sitting in no acute distress. EYES: Normal inspection. PERRLA, EOMI, visual jeffery intact. ENT: Normal inspection, moist mucous membranes. NECK: Normal inspection. RESP: No respiratory distress, CTAB. CVS: Regular rate and rhythm, no murmur, no gallop. ABD: Soft and nontender, no guarding or rebound, nondistended. Back: Normal inspection, no CVA tenderness. SKIN: Color normal, no rash, warm, dry, intact. EXTREMITIES: Normal appearance, no pedal edema. NEURO: Oriented x4. 5/5 strength in upper and lower extremities, no drift. Normal [id number] bilaterally. PSYCH: Normal affect. Const Vital Signs: 02/07/22 14:22 02/07/22 14:30 02/07/22 18:05 Temperature 98.3 F Temperature Source Oral Pulse Rate 70 Respiratory Rate 18 17 Respiratory Effort Normal Non-Labored Respiratory Pattern Normal Blood Pressure 99/71 Blood Pressure Mean 80 Pulse Ox 98 98 Oxygen Delivery Method Room Air Room Air 02/07/22 18:09 Temperature 98.5 F Temperature Source Pulse Rate 78 Respiratory Rate Respiratory Effort Respiratory Pattern Blood Pressure 102/74 Blood Pressure Mean Pulse Ox Oxygen Delivery Method <Dr. Darron Carmona DO - Last Filed: 02/07/22 22:45> Physical Exam Const Vital Signs: 02/07/22 14:22 02/07/22 14:30 02/07/22 18:05 Temperature 98.3 F Temperature Source Oral Pulse Rate 70 Respiratory Rate 18 17 Respiratory Effort Normal Non-Labored Respiratory Pattern Normal Blood Pressure 99/71 Blood Pressure Mean 80 Pulse Ox 98 98 Oxygen Delivery Method Room Air Room Air 02/07/22 18:09 Temperature 98.5 F Temperature Source Pulse Rate 78 Respiratory Rate Respiratory Effort Respiratory Pattern Blood Pressure 102/74 Blood Pressure Mean Pulse Ox Oxygen Delivery Method MDM <JOHN Orourke - Last Filed: 02/07/22 18:07> MDM MDM Narrative Medical decision making narrative: Patient presents with lightheadedness and feeling off balance as well as urinary frequency for several days. She appears well and nontoxic. BP is on the lower end of normal at 99/71 with otherwise normal vital signs. Her medical exam is unremarkable. She is neurologically intact and was able to ambulate at bedside with normal gait and no lightheaded symptoms. Work-up shows a UTI with a normal white count and renal function. CT brain and CXR were also obtained with her lightheadedness and show no acute findings. Patient was given IV fluid bolus and Rocephin and is feeling improved. She is comfortable going home on Keflex for UTI. She was instructed to return if symptoms worsen was discharged in stable condition. Lab Data Attestation: I reviewed the patient's lab results. Labs: Laboratory Results - last 24 hr 02/07/22 02/07/22 02/07/22 15:15 15:15 16:40 WBC 6.2 RBC 3.88 L Hgb 11.6 L Hct 36.4 L MCV 93.8 MCH 29.9 MCHC 31.9 L RDW Std Deviation 53.2 H RDW Coeff of [place] 15.3 H Plt Count 223 MPV 9.1 Immature Gran % (Auto) 0.300 Neut % (Auto) 52.6 Lymph % (Auto) 28.9 [place] % (Auto) 11.0 H Eos % (Auto) 5.7 H Baso % (Auto) 1.5 H Absolute Neuts (auto) 3.2 Absolute Lymphs (auto) 1.78 Nucleated RBC % 0 Sodium 138 Potassium 4.1 Chloride 109 H Carbon Dioxide 23.0 Anion Gap 6 BUN 21 H Creatinine 1.02 Estim Creat Clear Calc 42.33 Est GFR (MDRD) Af Amer 70 Est GFR (MDRD) Non-Af 57 L BUN/Creatinine Ratio 20.6 H Glucose 156 H Calcium 9.2 Total Bilirubin 0.20 AST 12 L ALT 17 Alkaline Phosphatase 89 Troponin I High Sens 7 Total Protein 6.2 L Albumin 3.1 L Globulin 3.1 Albumin/Globulin Ratio 1.0 Urine Color Yellow Urine Clarity Clear Urine pH 5.0 Ur Specific [place] 1.020 Urine Protein 15 H Urine Glucose (UA) Normal Urine Ketones Negative Urine Occult Blood Negative Urine Nitrite Negative Urine Bilirubin Negative Urine Urobilinogen Normal Ur Leukocyte Esterase 500 H Urine RBC 0 SEEN Urine WBC 10-25 SEEN Ur Squamous Epith Cells 0-5 SEEN Urine Bacteria 3+ Urine Mucus 0 SEEN Radiography Diagnostic Testing: Clinical Impression(s) from Imaging Studies Brain CT 02/07/22 14:39 IMPRESSION: Chronic involutional changes without evidence of acute intracranial or calvarial abnormality. No major interval change. Electronically Signed: Casey Dominguez DO at 16:49 EDT Reading Location ID and State: [address] [place] [address] Tel [phone], Service support , Chest X-Ray 02/07/22 15:55 IMPRESSION: No acute cardiopulmonary disease or interval change. Electronically Signed: Casey Dominguez at 16:08 EDT Reading Location ID and State: [address] [place] [address] Tel [phone], Service support , ED attending interpretation shows normal heart size, no acute infiltrate, edema, or effusion. EKG Initial EKG: Attestation: I personally reviewed and interpreted this EKG as follows: Interpretation: Sinus Rhythm and No Acute Injury Pattern Comments: Normal sinus rhythm at 62 bpm, left axis deviation, no acute ischemia <Dr. Darron Carmona, DO - Last Filed: 02/07/22 22:45> [facility] MDM Narrative Medical decision making narrative: Patient presents with lightheadedness and feeling off balance as well as urinary frequency for several days. She appears well and nontoxic. BP is on the lower end of normal at 99/71 with otherwise normal vital signs. Her medical exam is unremarkable. She is neurologically intact and was able to ambulate at bedside with normal gait and no lightheaded symptoms. Work-up shows a UTI with a normal white count and renal function. CT brain and CXR were also obtained with her lightheadedness and show no acute findings. Patient was given IV fluid bolus and Rocephin and is feeling improved. She is comfortable going home on Keflex for UTI. She was instructed to return if symptoms worsen was discharged in stable condition. Attending note: Patient seen and evaluated with engine oiler. I perform my own [id number] evaluation. I agree with the plan of work-up. Urine frequency urgency the past few days. No fevers or abdominal pain. No cough. Reports weakness. History of MS. Reported confusion. Exam alert and orient x3. Lungs are clear abdomen soft. Work-up initiated labs stable urine no signs of infection urine culture sent. Chest x-ray reviewed by myself and read by radiology shows no acute process. CT brain negative. Patient able to eat in the room. She is able to ambulate. Started on antibiotics with outpatient follow-up. Return precautions. Lab Data Labs: Laboratory Results - last 24 hr 02/07/22 02/07/22 02/07/22 15:15 15:15 16:40 WBC 6.2 RBC 3.88 L Hgb 11.6 L Hct 36.4 L MCV 93.8 MCH 29.9 MCHC 31.9 L RDW Std Deviation 53.2 H RDW Coeff of [place] 15.3 H Plt Count 223 MPV 9.1 Immature Gran % (Auto) 0.300 Neut % (Auto) 52.6 Lymph % (Auto) 28.9 [place] % (Auto) 11.0 H Eos % (Auto) 5.7 H Baso % (Auto) 1.5 H Absolute Neuts (auto) 3.2 Absolute Lymphs (auto) 1.78 Nucleated RBC % 0 Sodium 138 Potassium 4.1 Chloride 109 H Carbon Dioxide 23.0 Anion Gap 6 BUN 21 H Creatinine 1.02 Estim Creat Clear Calc 42.33 Est GFR (MDRD) Af Amer 70 Est GFR (MDRD) Non-Af 57 L BUN/Creatinine Ratio 20.6 H Glucose 156 H Calcium 9.2 Total Bilirubin 0.20 AST 12 L ALT 17 Alkaline Phosphatase 89 Troponin I High Sens 7 Total Protein 6.2 L Albumin 3.1 L Globulin 3.1 Albumin/Globulin Ratio 1.0 Urine Color Yellow Urine Clarity Clear Urine pH 5.0 Ur Specific [place] 1.020 Urine Protein 15 H Urine Glucose (UA) Normal Urine Ketones Negative Urine Occult Blood Negative Urine Nitrite Negative Urine Bilirubin Negative Urine Urobilinogen Normal Ur Leukocyte Esterase 500 H Urine RBC 0 SEEN Urine WBC 10-25 SEEN Ur Squamous Epith Cells 0-5 SEEN Urine Bacteria 3+ Urine Mucus 0 SEEN Radiography Diagnostic Testing: Clinical Impression(s) from Imaging Studies Brain CT 02/07/22 14:39 IMPRESSION: Chronic involutional changes without evidence of acute intracranial or calvarial abnormality. No major interval change. Electronically Signed: Casey Dominguez DO at 16:49 EDT Reading Location ID and State: [facility] / [place] Tel [phone], Service support , Chest X-Ray 02/07/22 15:55 IMPRESSION: No acute cardiopulmonary disease or interval change. Electronically Signed: Casey DominguezDO at 16:08 EDT Reading Location ID and State: [address] [place] [address] Tel [phone], Service support , Discharge Plan Triage Chief Complaint: Weakness Other Complaint: Dizziness Vision Prob ED Midlevel Provider: Selene Gatica ED Provider: Darron Carmona Dx/Rx/DC Orders Clinical Impression: Acute UTI, Intermittent lightheadedness, Type 2 diabetes mellitus, Hx of multiple sclerosis Instructions: ED Cystitis Female Adult Prescriptions: New cephalexin 500 mg capsule 500 mg PO BID 7 Days Qty: 14 0RF No Action Prolia 60 mg/mL syringe 60 mg subcut [id number] Qty: 1 1RF vibegron 75 mg tablet 75 mg PO DAILY ropinirole 1 mg tablet 1 mg PO DAILY Qty: 90 2RF Rx Instructions: 1 mg PO Lunch ropinirole 2 mg tablet 2 mg PO QHS Qty: 90 1RF Rx Instructions: administer 1-3 hours before bedtime duloxetine [Cymbalta] 30 mg capsule,delayed release(DR/EC) 30 mg PO BID Qty: 180 2RF acidophilus-pectin, citrus 100 million cell-10 mg capsule 1 cap PO DAILY Qty: 90 3RF dicyclomine 20 mg tablet 20 mg PO BID PRN (Reason: abdominal discomfort) Qty: 180 2RF cholecalciferol (vitamin D3) 125 mcg (5,000 unit) capsule 125 mcg PO DAILY ferrous sulfate 325 mg (65 mg iron) tablet 325 mg PO Q OTHER DAY eluxadoline 100 mg tablet 100 mg PO DAILY isosorbide mononitrate 30 mg tablet extended release 24 hr 30 mg PO BID loperamide [Anti-Diarrheal (loperamide)] 2 mg tablet 2 mg PO Q6H PRN melatonin 3 mg capsule 3 mg PO HS PRN furosemide 20 mg tablet 20 mg PO QAM PRN (Reason: edema) Qty: 90 1RF potassium chloride 20 mEq tablet extended release 20 meq PO DAILY PRN (Reason: take with lasix) Qty: 90 1RF sitagliptin 100 mg tablet 100 mg PO DAILY Qty: 90 3RF carvedilol 6.25 mg tablet 6.25 mg PO DAILY Rx Instructions: must administer with a meal/food insulin lispro [Humalog U-100 Insulin] 100 unit/mL solution 1 sliding scale dose subcut USEASDIRECTD Rx Instructions: 180-200=2u, 201-250=3u, 251-300=4u, 301-350=5u, 351-400=6u, 401-450=7u, >450 notify PCP lisinopril 20 mg tablet 20 mg PO DAILY Qty: 180 2RF Eliquis 5 mg tablet 5 mg PO DAILY Qty: 180 3RF modafinil 200 MG tablet 200 mg PO DAILY acetaminophen 500 MG tablet 1,000 mg PO TID PRN (Reason: pain -02/03) Qty: 1 0RF Rx Instructions: alternate with ibuprofen ondansetron 4 MG tablet 4 mg PO Q8H PRN PRN (Reason: Nausea) Qty: 10 0RF albuterol sulfate 2.5 mg /3 mL (0.083 %) Solution For Nebulization 2.5 mg inhalation Q2H PRN PRN (Reason: SOB/Wheezing) Qty: 0 0RF pantoprazole 40 mg Tablet,Delayed Release (Dr/Ec) 40 mg PO DAILY Qty: 0 0RF hydrocodone-acetaminophen 5-325 mg tablet 1 tab PO Q8H PRN (Reason: Pain) 7 Days Qty: 10 0RF pioglitazone 30 mg tablet 30 mg PO DAILY Qty: 90 1RF glimepiride 4 mg tablet 4 mg PO BID Qty: 60 3RF Label Comments: diabetes; 2100. Rx Instructions: Hold if glucose less than 130 mg/dl ascorbic acid (vitamin C) 500 mg tablet,chewable 500 mg PO DAILY Qty: 30 0RF atorvastatin 40 mg tablet 40 mg PO DAILY Qty: 30 11RF donepezil [Aricept] 10 mg tablet 20 mg PO DAILY Qty: 60 2RF sucralfate 100 mg/mL suspension 10 ml PO QAC Qty: 1000 0RF hydroxyzine HCl 50 mg tablet 50 mg PO BID PRN (Reason: Itching) Qty: 60 2RF Primary Care Provider: Tom Sherman Referrals: Tom Sherman MD [Primary Care Provider] - Activity Restrictions/Additional Instructions: You have a UTI. Take the antibiotics and follow up with your doctor next week. If symptoms worsen return to the emergency room. Disposition Disposition: Home, Self Care Discharge Date/Time: 02/07/22 18:39
[2022-02-07 15:22] LABS: Absolute Lymphocyte Count 1.78 X10^3/uL (0.83-4.51); Absolute Neutrophil Count 3.2 X10^3/uL (2.0-7.7); Basophil# 0.09 X10^3/uL; Basophil% 1.5 % (0-1); Eosinophil# 0.35 X10^3/uL; Eosinophils% 5.7 % (0-5); Hematocrit 36.4 % (37-47); Hemoglobin 11.6 g/dL (12.0-15.0); Lymphocyte # 1.78 X10^3/ul (0.83-4.51); Lymphocyte % 28.9 % (19-41); Mean Corp Hgb Conc 31.9 g/dL (32-36); Mean Corpuscular Hgb 29.9 pg (27.0-32.0); Mean Corpuscular Volume 93.8 fL (81-99); Mean Platelet Vol. 9.1 fl (6.2-12.0); Monocyte# 0.68 X10^3/uL; NRBC Flagged by Analyzer 0 % (0-5); Neutrophil # 3.24 X10^3/uL (2.7-7.7); Neutrophil % 52.6 % (47-70); Platelet Count 223 K/mm3 (150-450); RBC Distribution Width CV 15.3 % (11.6-14.6); RBC Distribution Width SD 53.2 fl (35.1-43.9); Red Blood Count 3.88 M/mm3 (4.2-5.4); White Blood Count 6.2 K/mm3 (4.4-11.0)
[2022-02-07 15:39] LABS: AST(SGOT) 12 U/L (15-37); Alanine Aminotransfer ALT/SGPT 17 U/L (13-56); Albumin, Serum 3.1 g/dL (3.2-5.0); Alkaline Phosphatase 89 U/L (45-117); Anion Gap 6 (5-15); BUN 21 mg/dL (7-18); BUN/Creat Ratio 20.6 RATIO (10-20); Calcium,Total 9.2 mg/dL (8.5-10.1); Chloride 109 mmol/L (98-107); Creatinine, Serum 1.02 mg/dL (0.55-1.02); EST Glomerular Filtration Rate 57 mL/min (>60); Est Glom Filt Rate - Afr Amer 70 mL/min (>60); Estimated Creatinine Clearance 42.33 ml/min; Globulin 3.1 g/dL (2.2-4.2); Glucose 156 mg/dL (74-106); Potassium 4.1 mmol/L (3.5-5.1); Protein, Total 6.2 g/dL (6.4-8.2); Sodium Level 138 mmol/L (136-145); Troponin-I HS 7 pg/mL (3.0-54.0)
--- NOTE | 2022-02-07 15:55 | RAD_ITS ---
STUDY: X-RAY CHEST REASON FOR EXAM: Female, 66 years old. Weakness, dizziness, confusion and visual changes at 0815 this morning. Question flare up of MS. TECHNIQUE: Single AP portable view of the chest. COMPARISON: 03/03/2018. FINDINGS: The lungs are clear and expanded. There is no demonstrated pleural abnormality. Normal size heart. Normal mediastinum and sara. Normal visualized pulmonary arteries. Normal visualized aortic arch and descending thoracic aorta. The thoracic spine is obscured by the mediastinum. There is evidence of mild levoscoliosis. Stable fusion of the cervical spine. Normal visualized ribs, clavicles, and shoulders. There is no demonstrated abnormality of the visualized soft tissue structures of the upper abdomen. RAD/Chest 1 View (Portable) IMPRESSION: No acute cardiopulmonary disease or interval change. Electronically Signed: Casey Dominguez DO at 16:08 EDT ,
--- NOTE | 2022-02-07 16:12 | CM.ED ---
SW Note SW advised MD that patient has a care plan. Mary REYES
[2022-02-07 16:46] LABS: Mucous, Urine 0 SEEN /hpf (<or=2+); Red Blood Cells-Urine 0 SEEN /hpf (0-5)
[2022-02-07 16:56] LABS: Color, Urine Yellow (Yellow); Glucose, Dipstick Normal (Normal); Ketone-Dipstick Negative (Negative); Leukocyte Esterase-Dipstick 500 /ul (Negative); Nitrite-Dipstick Negative (Negative); Occult Blood-Urine Negative /ul (Negative); Protein-Dipstick 15 mg/dl (Negative); Urine Bilirubin Dipstick Negative (Negative); Urine Clarity Clear (Clear); Urine Urobilinogen Normal (Normal)
[2022-02-07 17:15] LABS: Bacteria 3+ /hpf (None Seen); Squamous Epithelial Cells - UA 0-5 SEEN /hpf (5-10); White Blood Cells 10-25 SEEN /hpf (0-5)
[2022-02-07] MEDS: Ceftriaxone 1 GM/50 ML BAG IV (18:04)
[2022-02-07 18:05] VITALS: RESP 17; O2SAT 98
[2022-02-07 18:09] VITALS: BP 102/74; PULSE 78; TEMP 36.9
== END 2022-02-07 18:39 | disposition home or self-care (01) ==
PROVIDERS: Physician Assistant; Emergency Provider Emergency Medicine; PCP Internal Medicine; Visit Provider Emergency Medicine
DX: N39.0 Urinary tract infection, site not specified (principal); G35 Multiple sclerosis; J44.9 Chronic obstructive pulmonary disease, unspecified; I11.0 Hypertensive heart disease with heart failure; I50.22 Chronic systolic (congestive) heart failure; E11.9 Type 2 diabetes mellitus without complications; Z79.4 Long term (current) use of insulin; I25.10 Atherosclerotic heart disease of native coronary artery without angina pectoris; E78.5 Hyperlipidemia, unspecified; I25.5 Ischemic cardiomyopathy; I25.2 Old myocardial infarction; R42 Dizziness and giddiness; F17.210 Nicotine dependence, cigarettes, uncomplicated; Z95.5 Presence of coronary angioplasty implant and graft; Z79.84 Long term (current) use of oral hypoglycemic drugs; Z79.899 Other long term (current) drug therapy
CPT/HCPCS: 70450; 71045; 80053; 81001; 84484; 85025; 87077; 87086; 87088; 87186; 87811; 93005; 96365; 99285; J7040; A4216

== ENCOUNTER 2022-04-02 20:22 | Emergency (ER) | payer MEDICARE, MEDICAID, SELFPAY ==
[2016-07-13 11:45] VITALS: BMI 31.4
[2022-04-02 20:22] VITALS: BP 153/59; PULSE 62; RESP 20; TEMP 36.6; O2SAT 99; BMI 31.4
--- NOTE | 2022-04-02 20:42 | EKG12_ITS ---
Test Reason : CP Blood Pressure : / mmHG Vent. Rate : 059 BPM Atrial Rate : 059 BPM P-R Int : 146 ms QRS Dur : 096 ms QT Int : 454 ms P-R-T Axes : 039 -50 077 degrees QTc Int : 449 ms Sinus bradycardia Left axis deviation Septal infarct , age undetermined Inferior infarct , age undetermined Abnormal ECG Confirmed by JACQUELINE WITT, KASSANDRA ([id number]), editor farm journal YUNG MUNGUIA ([id number]) on 04/08/2022 10:32:19 AM Referred By: MYRNA Confirmed By:LILLY PHILLIPS MD
--- NOTE | 2022-04-02 21:02 | RAD_ITS ---
STUDY: X-RAY CHEST REASON FOR EXAM: Female, 66 years old. Chest pain TECHNIQUE: Portable, upright, AP COMPARISON: 03/03/2018 FINDINGS: The lungs are clear and expanded. There is no demonstrated pleural abnormality. Normal size heart. Loop recorder. Normal mediastinum and sara. Normal visualized pulmonary arteries. Normal visualized aortic arch and descending thoracic aorta. There is no demonstrated abnormality of the visualized soft tissue structures of the upper abdomen. RAD/Chest 1 View (Portable) IMPRESSION: No acute abnormal cardiopulmonary finding. Electronically Signed: Nikita Arellano MD at 21:28 EST ,
[2022-04-02 21:12] LABS: Absolute Lymphocyte Count 1.16 X10^3/uL (0.83-4.51); Absolute Neutrophil Count 3.9 X10^3/uL (2.0-7.7); Basophil# 0.04 X10^3/uL; Basophil% 0.7 % (0-1); Eosinophil# 0.23 X10^3/uL; Eosinophils% 3.9 % (0-5); Hematocrit 37.6 % (37-47); Hemoglobin 12.1 g/dL (12.0-15.0); Lymphocyte # 1.16 X10^3/ul (0.83-4.51); Lymphocyte % 19.7 % (19-41); Mean Corp Hgb Conc 32.2 g/dL (32-36); Mean Corpuscular Hgb 30.3 pg (27.0-32.0); Mean Corpuscular Volume 94.2 fL (81-99); Monocyte# 0.58 X10^3/uL; Monocyte% 9.8 % (0-10); NRBC Flagged by Analyzer 0 % (0-5); Neutrophil # 3.85 X10^3/uL (2.7-7.7); Neutrophil % 65.4 % (47-70); Platelet Count 216 K/mm3 (150-450); RBC Distribution Width CV 16.6 % (11.6-14.6); RBC Distribution Width SD 58.1 fl (35.1-43.9); Red Blood Count 3.99 M/mm3 (4.2-5.4); White Blood Count 5.9 K/mm3 (4.4-11.0)
[2022-04-02 21:30] LABS: Anion Gap 5 (5-15); BUN 22 mg/dL (7-18); BUN/Creat Ratio 24.5 RATIO (10-20); Calcium,Total 9.5 mg/dL (8.5-10.1); Chloride 106 mmol/L (98-107); EST Glomerular Filtration Rate 66 mL/min (>60); Est Glom Filt Rate - Afr Amer 80 mL/min (>60); Estimated Creatinine Clearance 47.97 ml/min; Glucose 240 mg/dL (74-106); Potassium 4.2 mmol/L (3.5-5.1); Sodium Level 136 mmol/L (136-145); Troponin-I HS 7 pg/mL (3.0-54.0)
--- NOTE | 2022-04-02 21:43 | ED.VIS.CHEST ---
HPI History of Present Illness Chief Complaint: Chest Pain Informant: patient Onset/Context/Timing Onset: Today and Hours Activity at onset: sudden Timing: Continuous Quality: Positive for Aching and Dull Location: Left Chest Current Severity: Mild Maximum Severity: Mild Worsened By: Nothing Relieved By: Nothing Associated Symptoms: Positive for Nausea; Negative for Vomiting, Dyspnea, Cough, Fever, Lightheadedness, Acid Reflux or Palpitations Narrative Narrative: C6-year[age]old female history of CAD, MD, atrial flutter with 1 cardiac stent placed 2016 on Eliquis. Also history of chronic kidney disease, diabetes and hypertension. Last heart cath was October of this year 5 to 6 months ago in which she had a procedure done to relieve a coronary blockage but did not have another stent placed. This was done at [facility] in [place], [place]. Patient states she was asleep tonight awoke with chest discomfort around 6 PM. Said it radiated to her left shoulder. Describes it as dull and aching. Associated with nausea. She denies any recent exertional chest pain or exertional dyspnea. Prior Similar Symptoms: Yes Recent Illness/Hospitalization: No CVD Risk Factors: Positive for Hypertension and Diabetes PE Risk Factors: Negative for Recent Travel/Surgery, Recent Immobilization, Prior DVT or PE, Cancer or OCP + Smoking + >/=35 TAD Risk Factors: Negative for Marfan's Syndrome [facility] Medical History Anemia Anemia Anxiety Anxiety and depression Apical mural thrombus with acute MD Atherosclerotic heart disease of [place] coronary artery without angina pectoris Cataracts, both eyes Cervical spinal stenosis Chronic anticoagulation Chronic back pain Chronic neck pain with history of cervical spinal surgery Chronic systolic (congestive) heart failure CKD (chronic kidney disease) stage 3, GFR 30-59 ml/min Closed right tibial fracture COPD (chronic obstructive pulmonary disease) Diabetes mellitus type 2 in nonobese Essential (primary) hypertension Flank pain Fracture of distal end of right tibia Hematemesis Hiatal hernia History of peptic ulcer disease History of ST elevation myocardial infarction (STEMI) Hyperglycemia due to type 2 diabetes mellitus Hyperkalemia IBS (irritable bowel syndrome) Irritable bowel syndrome with diarrhea Ischemic cardiomyopathy Left ventricular hypertrophy Major depression Multiple sclerosis Nicotine abuse Nondisplaced pilon fracture of right tibia, initial encounter for closed fracture BRYAN (obstructive sleep apnea) Osteoporosis Osteoporosis Pain of right lower extremity Paroxysmal atrial fibrillation RLS (restless legs syndrome) Suicidal ideation Tachycardia Takotsubo syndrome Type 2 diabetes mellitus Vitamin B12 deficiency Home Medications modafinil 200 mg tablet 200 mg PO DAILY to stay awake 12/12/19 [History Last Taken 08/14/20 09:00] acetaminophen 500 mg tablet 1,000 mg PO TID PRN pain -02/03 #1 TAB 07/29/20 [Rx Last Taken Unknown] denosumab 60 mg/mL subcutaneous syringe (Prolia) 60 mg subcut Q3ADLPJO #1 mL 12/25/20 [Rx Last Taken Unknown] vibegron 75 mg tablet 75 mg PO DAILY 07/03/21 [History Last Taken Unknown] ropinirole 1 mg tablet 1 mg PO DAILY restless legs #90 tabs 08/08/21 [Rx Last Taken Unknown] pioglitazone 30 mg tablet 30 mg PO DAILY diabetes #90 tabs 09/05/21 [Rx Last Taken Unknown] ascorbic acid (vitamin C) 500 mg chewable tablet 500 mg PO DAILY ##30 09/12/21 [Rx Last Taken Unknown] duloxetine 30 mg capsule,delayed release (Cymbalta) 30 mg PO BID mental health #180 caps 09/20/21 [Rx Last Taken Unknown] ondansetron 4 mg disintegrating tablet 4 mg PO Q8H PRN PRN Nausea #10 tabs 10/07/21 [Rx Last Taken Unknown] dicyclomine 20 mg tablet 20 mg PO BID PRN abdominal discomfort #180 tabs 10/10/21 [Rx Last Taken Unknown] atorvastatin 40 mg tablet 40 mg PO DAILY #30 tabs 10/30/21 [Rx Last Taken Unknown] cholecalciferol (vitamin D3) 125 mcg (5,000 unit) capsule 125 mcg PO DAILY 11/05/21 [History Last Taken Unknown] ferrous sulfate 325 mg (65 mg iron) tablet 325 mg PO Q OTHER DAY 11/05/21 [History Last Taken Unknown] albuterol sulfate 2.5 mg/3 mL (0.083 %) solution for nebulization 2.5 mg (3 mL) inhalation Q2H PRN PRN SOB/Wheezing #0 mL 11/20/21 [Rx Last Taken Unknown] hydrocodone-acetaminophen 5-325mg 5mg-325mg 1 tab PO Q8H PRN Pain 7 days #10 tabs 11/20/21 [Rx Last Taken Unknown] furosemide 20 mg tablet 20 mg PO QAM PRN edema #90 tabs 12/24/21 [Rx Last Taken Unknown] loperamide 2 mg tablet (Anti-Diarrheal (loperamide)) 2 mg PO Q6H PRN 12/24/21 [History Last Taken Unknown] melatonin 3 mg capsule 3 mg PO HS PRN 12/24/21 [History Last Taken Unknown] potassium chloride 20 mEq tablet,extended release 20 meq PO DAILY PRN take with lasix #90 tabs 12/24/21 [Rx Last Taken Unknown] apixaban 5 mg tablet (Eliquis) 5 mg PO DAILY #180 tabs 01/14/22 [Rx Last Taken Unknown] carvedilol 6.25 mg tablet 6.25 mg PO DAILY dose reduced while in [facility] [place] [facility] 01/14/22 [History Last Taken Unknown] isosorbide mononitrate 30 mg tablet,extended release 24 hr 30 mg PO BID 01/14/22 [History Last Taken Unknown] lisinopril 20 mg tablet 20 mg PO DAILY #180 tabs 01/14/22 [Rx Last Taken Unknown] donepezil 10 mg tablet (Aricept) 20 mg PO DAILY #60 tabs 01/20/22 [Rx Last Taken Unknown] hydroxyzine HCl 50 mg tablet 50 mg PO BID PRN Itching #60 tabs 02/13/22 [Rx Last Taken Unknown] ropinirole 2 mg tablet 2 mg PO QHS #90 tabs 02/27/22 [Rx Last Taken Unknown] glimepiride 4 mg tablet 4 mg PO DAILY BLOOD SUGAR #60 tabs 03/04/22 [Rx Last Taken Unknown] acidophilus 100 million cell-pectin, citrus 10 mg capsule 1 cap PO DAILY supplement #90 caps 04/01/22 [Rx Last Taken Unknown] aspirin 81 mg tablet,delayed release (Adult Aspirin Regimen) 81 mg PO DAILY 04/01/22 [History Last Taken Unknown] dapagliflozin 10 mg tablet (Farxiga) 10 mg PO QAM #90 tabs 04/01/22 [Rx Last Taken Unknown] eluxadoline 100 mg tablet 100 mg PO BID 04/01/22 [History Last Taken Unknown] ofatumumab 20 mg/0.4 mL subcutaneous pen injector (Kesimpta Pen) 20 mg subcut QMONTH 04/01/22 [History Last Taken Unknown] pantoprazole 40 mg tablet,delayed release 40 mg PO DAILY #90 tabs 04/01/22 [Rx Last Taken Unknown] sitagliptin phosphate 100 mg tablet 100 mg PO DAILY 04/01/22 [History Last Taken Unknown] sucralfate 1 gram tablet (Carafate) 1 g PO QAC #90 tabs 04/01/22 [Rx Last Taken Unknown] Allergy/AdvReac Type Severity Reaction Status Date / Time indomethacin [From Indocin] Allergy Hives Verified 04/02/22 20:24 indomethacin sodium Allergy Hives Verified 04/02/22 20:24 [From Indocin] iodine Allergy Hives Verified 04/02/22 20:24 propoxyphene napsylate Allergy Out of Verified 04/02/22 20:24 [From Darvocet-N] control aripiprazole [From Abilify] AdvReac Other Verified 04/02/22 20:24 aspirin AdvReac Upset Verified 04/02/22 20:24 Stomach clindamycin AdvReac Nausea Verified 04/02/22 20:24 metformin AdvReac Other Verified 04/02/22 20:24 sumatriptan [From Imitrex] AdvReac Vomiting Verified 04/02/22 20:24 Family History Father Cancer Lung cancer Mother Cancer Pancreatic cancer Surgical History History of amputation of left great toe History of back surgery History of cervical discectomy History of coronary artery stent placement (04/08/16) History of endoscopy History of left heart catheterization (09/25/20) History of left knee surgery History of loop recorder (06/2014) History of tonsillectomy and adenoidectomy Social History household members: none Smoking Status: Current every day smoker tobacco type: cigarettes alcohol intake: never substance use type: does not use caffeine: Yes Type: coffee Number of servings: 1 what type of physical activity do you participate in: none and other details: Physical Therapy ROS ROS ED ROS Narrative Chest discomfort. Review of Systems ROS Unobtainable: Denies due to encephalopathy Constitutional Constitutional ED: Denies chills or fever(s) Eyes Eyes: Reports none ENT ENT ED: Denies ear pain or rhinorrhea Cardiovascular Cardiovascular: Reports as per HPI and chest pain; Denies palpitations or racing heartbeat Respiratory/Chest Respiratory/Chest: Denies cough or dyspnea Gastrointestinal Gastrointestinal: Reports nausea; Denies abdominal pain, constipation, diarrhea, melena or vomiting Genitourinary Genitourinary ED: Reports urinary frequency; Denies dysuria or hematuria Musculoskeletal Musculoskeletal: Denies arthralgias or back pain Integumentary Denies abscess Neurologic Neurologic: Denies headache(s) Psychiatric Psychiatric: Denies anxiety Endocrine Endocrinology: Denies cold intolerance Hematologic/Lymphatic Hematologic/Lymphatic: Denies easy bleeding Allergic/Immunologic Allergic/Immunologic ED: Denies mouth swelling or tongue swelling EXAM Physical Exam Narrative Exam Narrative: 66-year-old female vital signs stable afebrile. Pulse ox 99% on room air no signs hypoxia. No distress. H EENT exam unremarkable. Moist Riis membranes. Neck nontender no JVD. Lungs clear to auscultation bilaterally. Heart regular rhythm rate about 62 no murmur. Chest wall does have some reproducible tenderness. Abdomen soft nontender normal bowel sounds no peritoneal signs. Moving all 4 extremities. Calves are nontender without edema. Equal symmetrical radial pulses. Back nontender. Neurologically she is awake and alert with no focal motor deficits. Const Vital Signs: 04/02/22 20:22 04/02/22 20:26 04/02/22 20:43 Temperature 98 F Temperature Source Temporal Pulse Rate 62 Respiratory Rate 20 H Respiratory Effort Normal Non-Labored Blood Pressure 153/59 H Blood Pressure Mean 90 Pulse Ox 99 Oxygen Delivery Method Room Air Room Air 04/02/22 21:52 04/02/22 22:00 Temperature Temperature Source Pulse Rate 61 58 L Respiratory Rate 16 13 Respiratory Effort Blood Pressure 148/78 H 117/52 L Blood Pressure Mean 101 73 Pulse Ox 97 96 Oxygen Delivery Method Room Air Room Air Positive well nourished, well developed and obese; Negative for cachectic, contractures or unkempt General Appearance ED: well developed and NAD; Negative for unkempt, cachectic, contractures or pallor Nutritional Appearance: obese; Negative for cachectic HEENT Reports moist mucous membranes; Denies dry mucous membranes normocephalic and atraumatic; Negative for trauma or tenderness Mouth ED: No dry mucous membranes Mouth: No dry mucous membranes Eyes PERRL and EOMs intact bilaterally General Eye ED: Negative for pale conjunctiva or scleral icterus Neck no lymphadenopathy, supple and no JVD General: Negative for tenderness Chest Wall inspection of chest normal; Negative for palpation of chest normal Chest Narrative: Tender chest wall. Chest: tenderness Resp normal respiratory effort and clear to auscultation bilaterally Effort and Inspection: Negative for respiratory distress Auscultation: Negative for rales, rhonchi or wheezes Cardio regular rate, regular rhythm, S1 normal heart sound, S2 normal heart sound and no murmurs Rate: Negative for bradycardia Rhythm: Negative for abnormal rhythm Peripheral Pulses: pulses 2+ throughout GI normal to inspection, nondistended, normoactive bowel sounds, soft to palpation, non-tender, non-distended and no masses Auscultation: Negative for hyperactive bowel sounds Back/Spine no CVA tenderness and no thoracic nor lumbar tenderness Cervical Spine: Negative for cervical spine tenderness Extremity normal to inspection General Extremety ED: Negative for edema or pulses abnormal General Extremity: Negative for edema or pulses abnormal Neuro oriented x3 and CN's II-XII intact bilaterally Sensorium / Orientation: awake, alert, oriented to person, oriented to place and oriented to time; Negative for confused, lethargic or stuporous Motor Exam: strength 5/5 throughout Psych mental status grossly normal Appearance: Negative for unkempt Attitude: No agitated Mood & Affect: Negative for depressed, anxious or tearful Skin no rashes or lesions noted and no wounds General Skin Exam: Negative for jaundice or pallor Rashes: No rashes noted Trauma: Negative for abrasion or laceration Heart Score History: Slightly/Non-Suspicious ECG: Normal Age: >/= 65 years Risk Factors: >/= 3 Risk Factors or History of CAD Troponin: </= Normal Limit Score: 4 MDM MDM MDM Narrative Medical decision making narrative: 66-year-old with chest pain that awoke her from sleep. Has a significant cardiac history. She undergo cardiac work-up. Second troponin. She requested something for pain she will be given given morphine and Zofran IV. She has a history of pancreatitis and would like her lipase checked. She has been having urinary frequency her urine sample grossly looks unremarkable but UA will also be obtained. Repeat exam at 11:33 PM patient doing well. Pain-free. Exam benign and unchanged. She and I went over all of her test results. Clinically this did not sound like cardiac chest pain. Negative EKG and 2 negative troponins. Along with her other test. I feel comfortable she can be discharged home safely. Follow-up with her primary care physician Dr. Sherman. Patient is comfortable with the plan. Lab Data Attestation: I reviewed the patient's lab results. Lab results narrative: CBC shows a white count of 5.9. H&H 12.1 and 37. Platelets 216. Electrolytes unremarkable gap of 5 BUN of 22 creatinine 0.9. Glucose 240 she is diabetic. First troponin 7. Chest x-ray unremarkable. Urinalysis negative. 2-hour troponin benign. Lipase normal at 120. Labs: Laboratory Results - last 24 hr 04/02/22 04/02/22 04/02/22 20:40 20:40 21:45 WBC 5.9 RBC 3.99 L Hgb 12.1 Hct 37.6 MCV 94.2 MCH 30.3 MCHC 32.2 RDW Std Deviation 58.1 H RDW Coeff of Yeimi 16.6 H Plt Count 216 MPV 10.0 Immature Gran % (Auto) 0.500 Neut % (Auto) 65.4 Lymph % (Auto) 19.7 [place] % (Auto) 9.8 Eos % (Auto) 3.9 Baso % (Auto) 0.7 Absolute Neuts (auto) 3.9 Absolute Lymphs (auto) 1.16 Nucleated RBC % 0 Sodium 136 Potassium 4.2 Chloride 106 Carbon Dioxide 25.0 Anion Gap 5 BUN 22 H Creatinine 0.90 Estim Creat Clear Calc 47.97 Est GFR (MDRD) Af Amer 80 Est GFR (MDRD) Non-Af 66 BUN/Creatinine Ratio 24.5 H Glucose 240 H Calcium 9.5 Troponin I High Sens 7 Lipase Urine Color Yellow Urine Clarity Clear Urine pH 7.0 Ur Specific [place] 1.010 Urine Protein Negative Urine Glucose (UA) Normal Urine Ketones Negative Urine Occult Blood Negative Urine Nitrite Negative Urine Bilirubin Negative Urine Urobilinogen Normal Ur Leukocyte Esterase 25 H Urine RBC 0 SEEN Urine WBC 0 SEEN Ur Squamous Epith Cells 0 SEEN Urine Bacteria 0 SEEN Urine Mucus 0 SEEN 04/02/22 04/02/22 22:45 22:45 WBC RBC Hgb Hct MCV MCH MCHC RDW Std Deviation RDW Coeff of Yeimi Plt Count MPV Immature Gran % (Auto) Neut % (Auto) Lymph % (Auto) [place] % (Auto) Eos % (Auto) Baso % (Auto) Absolute Neuts (auto) Absolute Lymphs (auto) Nucleated RBC % Sodium Potassium Chloride Carbon Dioxide Anion Gap BUN Creatinine Estim Creat Clear Calc Est GFR (MDRD) Af Amer Est GFR (MDRD) Non-Af BUN/Creatinine Ratio Glucose Calcium Troponin I High Sens 9 Lipase 120 Urine Color Urine Clarity Urine pH Ur Specific [place] Urine Protein Urine Glucose (UA) Urine Ketones Urine Occult Blood Urine Nitrite Urine Bilirubin Urine Urobilinogen Ur Leukocyte Esterase Urine RBC Urine WBC Ur Squamous Epith Cells Urine Bacteria Urine Mucus Radiography Chest X-Ray - ED: 1 View, Read by ED Physician, Read by Radiologist, Heart, Lungs, Mediastinum, Bony Structures, No Acute Disease and Chronic Changes Diagnostic Testing: Clinical Impression(s) from Imaging Studies Chest X-Ray 04/02/22 21:02 IMPRESSION: No acute abnormal cardiopulmonary finding. Electronically Signed: Nikita Arellano MD at 21:28 EST , Chest x-ray, portable, single view interpreted by myself and radiologist shows no acute abnormality. Normal cardiac silhouette. Normal mediastinum. Normal lung jeffery. Prior cervical metallic rods. Rhythm Strip Rhythm Strip: Sinus Rhythm Rate: 59 Ectopy: None EKG Initial EKG: Attestation: I personally reviewed and interpreted this EKG as follows: Interpretation: Sinus Rhythm, No Acute Injury Pattern and Sinus Bradycardia Comments: Sinus bradycardia rate of 59 no acute signs of MD or ischemia. Old septal and inferior infarct. Unchanged from prior EKG from January of this year Discharge Plan Triage Chief Complaint: Chest Pain ED Provider: Mark Anthony Blackburn Dx/Rx/DC Orders Clinical Impression: Chest pain, History of ST elevation myocardial infarction (STEMI), Essential (primary) hypertension, Chronic anticoagulation, Type 2 diabetes mellitus Instructions: ED Chest Pain, Uncertain Cause Prescriptions: No Action Prolia 60 mg/mL syringe 60 mg subcut [id number] Qty: 1 1RF vibegron 75 mg tablet 75 mg PO DAILY ropinirole 1 mg tablet 1 mg PO DAILY Qty: 90 2RF Rx Instructions: 1 mg PO Lunch duloxetine [Cymbalta] 30 mg capsule,delayed release(DR/EC) 30 mg PO BID Qty: 180 2RF dicyclomine 20 mg tablet 20 mg PO BID PRN (Reason: abdominal discomfort) Qty: 180 2RF cholecalciferol (vitamin D3) 125 mcg (5,000 unit) capsule 125 mcg PO DAILY ferrous sulfate 325 mg (65 mg iron) tablet 325 mg PO Q OTHER DAY isosorbide mononitrate 30 mg tablet extended release 24 hr 30 mg PO BID eluxadoline 100 mg tablet 100 mg PO BID loperamide [Anti-Diarrheal (loperamide)] 2 mg tablet 2 mg PO Q6H PRN melatonin 3 mg capsule 3 mg PO HS PRN furosemide 20 mg tablet 20 mg PO QAM PRN (Reason: edema) Qty: 90 1RF potassium chloride 20 mEq tablet extended release 20 meq PO DAILY PRN (Reason: take with lasix) Qty: 90 1RF carvedilol 6.25 mg tablet 6.25 mg PO DAILY Rx Instructions: must administer with a meal/food lisinopril 20 mg tablet 20 mg PO DAILY Qty: 180 2RF Eliquis 5 mg tablet 5 mg PO DAILY Qty: 180 3RF aspirin [Adult Aspirin Regimen] 81 mg tablet,delayed release (DR/EC) 81 mg PO DAILY sitagliptin phosphate 100 mg tablet 100 mg PO DAILY Kesimpta Pen 20 mg/0.4 mL pen injector 20 mg subcut QMONTH Rx Instructions: begin at Week 4 of therapy acidophilus-pectin, citrus 100 million cell-10 mg capsule 1 cap PO DAILY Qty: 90 3RF sucralfate [Carafate] 1 gram tablet 1 g PO QAC Qty: 90 1RF pantoprazole 40 mg tablet,delayed release (DR/EC) 40 mg PO DAILY Qty: 90 0RF Farxiga 10 mg tablet 10 mg PO QAM Qty: 90 1RF modafinil 200 MG tablet 200 mg PO DAILY acetaminophen 500 MG tablet 1,000 mg PO TID PRN (Reason: pain -02/03) Qty: 1 0RF Rx Instructions: alternate with ibuprofen ondansetron 4 MG tablet 4 mg PO Q8H PRN PRN (Reason: Nausea) Qty: 10 0RF albuterol sulfate 2.5 mg /3 mL (0.083 %) Solution For Nebulization 2.5 mg inhalation Q2H PRN PRN (Reason: SOB/Wheezing) Qty: 0 0RF hydrocodone-acetaminophen 5-325 mg tablet 1 tab PO Q8H PRN (Reason: Pain) 7 Days Qty: 10 0RF pioglitazone 30 mg tablet 30 mg PO DAILY Qty: 90 1RF ascorbic acid (vitamin C) 500 mg tablet,chewable 500 mg PO DAILY Qty: 30 0RF atorvastatin 40 mg tablet 40 mg PO DAILY Qty: 30 11RF donepezil [Aricept] 10 mg tablet 20 mg PO DAILY Qty: 60 2RF hydroxyzine HCl 50 mg tablet 50 mg PO BID PRN (Reason: Itching) Qty: 60 2RF ropinirole 2 mg tablet 2 mg PO QHS Qty: 90 1RF Rx Instructions: administer 1-3 hours before bedtime glimepiride 4 mg tablet 4 mg PO DAILY Qty: 60 3RF Label Comments: diabetes; 2100. Rx Instructions: Hold if glucose less than 130 mg/dl Primary Care Provider: Tom Sherman Referrals: Tom Sherman MD [Primary Care Provider] - As soon as possible Activity Restrictions/Additional Instructions: Your test tonight were unremarkable. Do not have a specific cause for your pain. Call and follow-up with your primary care physician. Return if worse. Disposition Disposition: Home, Self Care
[2022-04-02 21:52] VITALS: BP 148/78; PULSE 61; RESP 16; O2SAT 97
[2022-04-02 21:56] LABS: Bacteria 0 SEEN /hpf (None Seen); Mucous, Urine 0 SEEN /hpf (<or=2+); Red Blood Cells-Urine 0 SEEN /hpf (0-5); Squamous Epithelial Cells - UA 0 SEEN /hpf (5-10); White Blood Cells 0 SEEN /hpf (0-5)
[2022-04-02] MEDS: Ondansetron 4 MG/2 ML Vial IV (21:56)
[2022-04-02 21:58] LABS: Color, Urine Yellow (Yellow); Glucose, Dipstick Normal (Normal); Ketone-Dipstick Negative (Negative); Leukocyte Esterase-Dipstick 25 /ul (Negative); Nitrite-Dipstick Negative (Negative); Occult Blood-Urine Negative /ul (Negative); Protein-Dipstick Negative (Negative); Urine Bilirubin Dipstick Negative (Negative); Urine Clarity Clear (Clear); Urine Urobilinogen Normal (Normal)
[2022-04-02 22:00] VITALS: BP 117/52; PULSE 58; RESP 13; O2SAT 96
[2022-04-02] MEDS: Morphine 4 MG/ML Syringe IV (22:06)
[2022-04-02 23:08] LABS: Lipase 120 U/L (73-393)
[2022-04-02 23:12] LABS: Troponin-I HS 9 pg/mL (3.0-54.0)
[2022-04-02 23:57] VITALS: BP 138/74; PULSE 63; RESP 16; O2SAT 97
== END 2022-04-02 23:58 | disposition home or self-care (01) ==
PROVIDERS: Emergency Provider Emergency Medicine; PCP Internal Medicine; Visit Provider Emergency Medicine
DX: R07.9 Chest pain, unspecified (principal); J44.9 Chronic obstructive pulmonary disease, unspecified; I50.22 Chronic systolic (congestive) heart failure; I13.0 Hypertensive heart and chronic kidney disease with heart failure and stage 1 through stage 4 chronic kidney disease, or unspecified chronic kidney disease; E11.22 Type 2 diabetes mellitus with diabetic chronic kidney disease; N18.30 Chronic kidney disease, stage 3 unspecified; I25.10 Atherosclerotic heart disease of native coronary artery without angina pectoris; Z79.82 Long term (current) use of aspirin; R35.0 Frequency of micturition; E66.9 Obesity, unspecified; I25.2 Old myocardial infarction
CPT/HCPCS: 71045; 80048; 81001; 83690; 84484; 85025; 93005; 96374; 96375; 99285; A4216; J2405

== ENCOUNTER → 2022-04-04 | Outpatient (CLI) | payer MEDICARE, MEDICAID, SELFPAY ==
[2016-07-13 11:45] VITALS: BMI 31.4
== END | disposition home or self-care (01) ==
LOC: LABSPEC 16:08
PROVIDERS: PCP Internal Medicine
DX: N39.0 Urinary tract infection, site not specified (principal)

== ENCOUNTER 2022-04-28 18:11 | Emergency (ER) | payer MEDICARE, MEDICAID, SELFPAY ==
[2016-07-13 11:45] VITALS: BMI 31.4
[2022-04-28 18:16] VITALS: PULSE 57; RESP 18; TEMP 36.9; O2SAT 98; BMI 31.1
[2022-04-28 18:18] VITALS: BP 104/47
--- NOTE | 2022-04-28 18:21 | EKG12_ITS ---
Test Reason : CP Blood Pressure : / mmHG Vent. Rate : 057 BPM Atrial Rate : 057 BPM P-R Int : 146 ms QRS Dur : 102 ms QT Int : 440 ms P-R-T Axes : 037 -49 088 degrees QTc Int : 428 ms Sinus bradycardia Left axis deviation Inferior infarct , age undetermined Anterolateral infarct , age undetermined Abnormal ECG Confirmed by CATHERINE WITT, GRIS ([id number]), video tape editor YUNG MUNGUIA ([id number]) on 04/30/2022 9:31:26 AM Referred By: KENDALL Confirmed By:GRIS ALEXANDER MD
[2022-04-28] MEDS: 0.9% Normal Saline 1,000 ML 999 ML IV (18:58)
[2022-04-28] MEDS: Ondansetron 4 MG/2 ML Vial IV (18:59)
[2022-04-28] MEDS: Morphine 4 MG/ML Syringe IV (18:59)
--- NOTE | 2022-04-28 19:05 | RAD_ITS ---
STUDY: X-RAY CHEST REASON FOR EXAM: Female, 66 years old. chest pain TECHNIQUE: XR Chest 2 Views COMPARISON: 12.7 FINDINGS: There is atherosclerotic calcification of the aortic arch with tortuosity. There are diffuse degenerative changes of the visualized thoracic spine. There is degenerative osteoarthritis of the bilateral shoulders. There is no demonstrated pleural abnormality. Normal size heart. Normal mediastinum and sara. Normal visualized pulmonary arteries. There is no demonstrated abnormality of the visualized soft tissue structures of the upper abdomen. RAD/Chest PA and Lateral IMPRESSION: There are no acute findings. Electronically Signed: Efren Lockhart MD at 19:39 EST ,
--- NOTE | 2022-04-28 19:09 | EDS_ITS ---
HPI History of Present Illness Chief Complaint: Chest Pain Informant: patient Narrative Narrative: Patient is a 66-year-old female with complex medical history including coronary artery disease, ischemic cardiomyopathy, chronic anticoagulation on Eliquis, type 2 diabetes mellitus, anxiety, depression, pancreatitis and CKD 3 presenting with chest pain. Patient states around 430 today she developed epigastric and left-sided chest pain that radiate down her left arm. She has associated nausea with it. She also notes that since yesterday it hurts when she pees. She started taking [id number] azole. She has appointment to see her doctor tomorrow. Patient notes that Thursday, 3 days ago she had about 12 hours of pretty severe vomiting that has since resolved. She does not routinely drink alcohol but did have a drink on (1 week ago). She notes the pain in her chest does radiate to her back. She states it does feel like when she had pancreatitis before. Received nitroglycerin in route with improvement of her symptoms. No other complaints at this time. [facility] Medical History Anemia Anemia Anxiety Anxiety and depression Apical mural thrombus with acute DC Atherosclerotic heart disease of [place] coronary artery without angina pectoris Cataracts, both eyes Cervical spinal stenosis Chronic anticoagulation Chronic back pain Chronic neck pain with history of cervical spinal surgery Chronic systolic (congestive) heart failure CKD (chronic kidney disease) stage 3, GFR 30-59 ml/min Closed right tibial fracture COPD (chronic obstructive pulmonary disease) Diabetes mellitus type 2 in nonobese Essential (primary) hypertension Flank pain Fracture of distal end of right tibia Hematemesis Hiatal hernia History of peptic ulcer disease History of ST elevation myocardial infarction (STEMI) Hyperglycemia due to type 2 diabetes mellitus Hyperkalemia IBS (irritable bowel syndrome) Irritable bowel syndrome with diarrhea Ischemic cardiomyopathy Left ventricular hypertrophy Major depression Multiple sclerosis Nicotine abuse Nondisplaced pilon fracture of right tibia, initial encounter for closed fracture BRYAN (obstructive sleep apnea) Osteoporosis Osteoporosis Pain of right lower extremity Paroxysmal atrial fibrillation RLS (restless legs syndrome) Suicidal ideation Tachycardia Takotsubo syndrome Type 2 diabetes mellitus Vitamin B12 deficiency Home Medications modafinil 200 mg tablet 200 mg PO DAILY to stay awake 12/12/19 [History Last Taken 08/14/20 09:00] acetaminophen 500 mg tablet 1,000 mg PO TID PRN pain 1-10/10 #1 TAB 07/29/20 [Rx Last Taken Unknown] denosumab 60 mg/mL subcutaneous syringe (Prolia) 60 mg subcut [id number] #1 mL 12/25/20 [Rx Last Taken Unknown] vibegron 75 mg tablet 75 mg PO DAILY 07/03/21 [History Last Taken Unknown] ropinirole 1 mg tablet 1 mg PO DAILY restless legs #90 tabs 08/08/21 [Rx Last Taken Unknown] pioglitazone 30 mg tablet 30 mg PO DAILY diabetes #90 tabs 09/05/21 [Rx Last Taken Unknown] ascorbic acid (vitamin C) 500 mg chewable tablet 500 mg PO DAILY ##30 09/12/21 [Rx Last Taken Unknown] duloxetine 30 mg capsule,delayed release (Cymbalta) 30 mg PO BID mental health #180 caps 09/20/21 [Rx Last Taken Unknown] ondansetron 4 mg disintegrating tablet 4 mg PO Q8H PRN PRN Nausea #10 tabs 10/07/21 [Rx Last Taken Unknown] dicyclomine 20 mg tablet 20 mg PO BID PRN abdominal discomfort #180 tabs 10/10/21 [Rx Last Taken Unknown] atorvastatin 40 mg tablet 40 mg PO DAILY #30 tabs 10/30/21 [Rx Last Taken U nknown] cholecalciferol (vitamin D3) 125 mcg (5,000 unit) capsule 125 mcg PO DAILY 11/05/21 [History Last Taken Unknown] ferrous sulfate 325 mg (65 mg iron) tablet 325 mg PO Q OTHER DAY 11/05/21 [Hist ory Last Taken Unknown] albuterol sulfate 2.5 mg/3 mL (0.083 %) solution for nebulization 2.5 mg (3 mL) inhalation Q2H PRN PRN SOB/Wheezing #0 mL 11/20/21 [Rx Last Taken Unknown] hydrocodone-acetaminophen 5-325mg 5mg-325mg 1 tab PO Q8H PRN Pain 7 days #10 tabs 11/20/21 [Rx Last Taken Unknown] furosemide 20 mg tablet 20 mg PO QAM PRN edema #90 tabs 12/24/21 [Rx Last Taken Unknown] loperamide 2 mg tablet (Anti-Diarrheal (loperamide)) 2 mg PO Q6H PRN 12/24/21 [History Last Taken Unknown] melatonin 3 mg capsule 3 mg PO HS PRN 12/24/21 [History Last Taken Unknown] potassium chloride 20 mEq tablet,extended release 20 meq PO DAILY PRN take with lasix #90 tabs 12/24/21 [Rx Last Taken Unknown] apixaban 5 mg tablet (Eliquis) 5 mg PO DAILY #180 tabs 01/14/22 [Rx Last Taken Unknown] carvedilol 6.25 mg tablet 6.25 mg PO DAILY dose reduced while in [facility] 01/14/22 [History Last Taken Unknown] isosorbide mononitrate 30 mg tablet,extended release 24 hr 30 mg PO BID 01/14/22 [History Last Taken Unknown] lisinopril 20 mg tablet 20 mg PO DAILY #180 tabs 01/14/22 [Rx Last Taken Unknown] donepezil 10 mg tablet (Aricept) 20 mg PO DAILY #60 tabs 01/20/22 [Rx Last Taken Unknown] hydroxyzine HCl 50 mg tablet 50 mg PO BID PRN Itching #60 tabs 02/13/22 [Rx Last Taken Unknown] ropinirole 2 mg tablet 2 mg PO QHS #90 tabs 02/27/22 [Rx Last Taken Unknown] glimepiride 4 mg tablet 4 mg PO DAILY BLOOD SUGAR #60 tabs 03/04/22 [Rx Last Taken Unknown] acidophilus 100 million cell-pectin, citrus 10 mg capsule 1 cap PO DAILY supplement #90 caps 04/01/22 [Rx Last Taken Unknown] aspirin 81 mg tablet,delayed release (Adult Aspirin Regimen) 81 mg PO DAILY 04/01/22 [History Last Taken Unknown] dapagliflozin 10 mg tablet (Farxiga) 10 mg PO QAM #90 tabs 04/01/22 [Rx Last Taken Unknown] eluxadoline 100 mg tablet 100 mg PO BID 04/01/22 [History Last Taken Unknown] ofatumumab 20 mg/0.4 mL subcutaneous pen injector (Kesimpta Pen) 20 mg subcut QMONTH 04/01/22 [History Last Taken Unknown] pantoprazole 40 mg tablet,delayed release 40 mg PO DAILY #90 tabs 04/01/22 [Rx Last Taken Unknown] sitagliptin phosphate 100 mg tablet 100 mg PO DAILY 04/01/22 [History Last Taken Unknown] sucralfate 1 gram tablet (Carafate) 1 g PO QAC #90 tabs 04/01/22 [Rx Last Taken Unknown] sulfamethoxazole 800 mg-trimethoprim 160 mg tablet (Bactrim DS) 1 tab PO BID 5 days #10 tabs 04/28/22 [Rx Last Taken Unknown] Allergy/AdvReac Type Severity Reaction Status Date / Time indomethacin [From Indocin] Allergy Hives Verified 04/28/22 18:17 indomethacin sodium Allergy Hives Verified 04/28/22 18:17 [From Indocin] iodine Allergy Hives Verified 04/28/22 18:17 propoxyphene napsylate Allergy Out of Verified 04/28/22 18:17 [From Darvocet-N] control aripiprazole [From Abilify] AdvReac Other Verified 04/28/22 18:17 aspirin AdvReac Upset Verified 04/28/22 18:17 Stomach clindamycin AdvReac Nausea Verified 04/28/22 18:17 metformin AdvReac Other Verified 04/28/22 18:17 sumatriptan [From Imitrex] AdvReac Vomiting Verified 04/28/22 18:17 Family History Father Cancer Lung cancer Mother Cancer Pancreatic cancer Surgical History History of amputation of left great toe History of back surgery History of cervical discectomy History of coronary artery stent placement (04/08/16) History of endoscopy History of left heart catheterization (09/25/20) History of left knee surgery History of loop recorder (06/2014) History of tonsillectomy and adenoidectomy Social History household members: none Smoking Status: Current every day smoker tobacco type: cigarettes alcohol intake: never substance use type: does not use caffeine: Yes Type: coffee Number of servings: 1 what type of physical activity do you participate in: none and other details: Physical Therapy ROS ROS ED Constitutional Constitutional ED: Denies chills or fever(s) ENT ENT ED: Reports other Details: Dry mouth ; Denies rhinorrhea or sore throat Cardiovascular Cardiovascular: Reports chest pain Respiratory/Chest Respiratory/Chest: Denies cough or dyspnea Gastrointestinal Gastrointestinal: Reports abdominal pain, nausea and vomiting; Denies constipation or diarrhea Genitourinary Genitourinary ED: Reports dysuria; Denies hematuria Musculoskeletal Musculoskeletal: Reports back pain; Denies arthralgias or myalgias Integumentary Denies rash Neurologic Neurologic: Reports headache(s) and weakness Psychiatric Psychiatric: Denies anxiety Hematologic/Lymphatic Hematologic/Lymphatic: Reports easy bleeding and easy bruising EXAM Physical Exam Const Vital Signs: 04/28/22 18:16 04/28/22 18:18 04/28/22 18:19 Temperature 98.4 F Temperature Source Oral Pulse Rate 57 L Respiratory Rate 18 Respiratory Effort Short of Breath Blood Pressure 104/47 L Blood Pressure Mean 66 Pulse Ox 98 Oxygen Delivery Method Room Air 04/28/22 18:25 04/28/22 19:26 04/28/22 20:33 Temperature Temperature Source Pulse Rate 58 L 66 Respiratory Rate 18 16 Respiratory Effort Blood Pressure 155/54 H 102/59 L Blood Pressure Mean 87 73 Pulse Ox 97 97 Oxygen Delivery Method Room Air Room Air Room Air 04/28/22 20:27 Temperature Temperature Source Pulse Rate 60 Respiratory Rate Respiratory Effort Blood Pressure 119/66 Blood Pressure Mean Pulse Ox Oxygen Delivery Method Positive well developed Constitutional Narrative: Unkempt General Appearance ED: well developed and NAD HEENT Reports dry mucous membranes normocephalic and atraumatic Mouth ED: Yes dry mucous membranes Mouth: dry mucous membranes Eyes PERRL and EOMs intact bilaterally Neck supple and no JVD Chest Wall inspection of chest normal and palpation of chest normal Resp normal respiratory effort Cardio regular rate, regular rhythm and no murmurs GI normal to inspection, nondistended, normoactive bowel sounds and soft to palpation GI Narrative: No rigidity or guarding Extremity normal to inspection General Extremety ED: Negative for edema General Extremity: Negative for edema Neuro oriented x3 Sensorium / Orientation: awake and alert Motor Exam: general weakness Psych mental status grossly normal Skin no rashes or lesions noted and no wounds MDM MDM MDM Narrative Medical decision making narrative: Patient is evaluated for chest pain that started at 430 this afternoon. She does have a history of heart disease however chart review shows that patient had a normal cardiac catheterization at [facility] in October 27, 2021 and an echocardiogram with EF of 40% and grade 1 diastolic dysfunction per cardiology note. Patient's EKG does not due to ischemic changes and does not show any change compared to prior EKG. Her high sensitive troponin is normal at 9 and 9. She does have improvement of her pain with nitroglycerin however given her normal cardiac work-up and normal cardiac catheterization 6 months ago I have a lower suspicion for ACS. Patient's lipase is normal and I do not think this is acute pancreatitis. Her urinalysis does show positive nitrates but is otherwise normal. Given her symptoms and history of culture positive Pseudomonas UTI I will cover her with Bactrim. She is given first dose in the ER. Patient is now requesting a sandwich. Patient tolerates this well. She is given IV fluid bolus as she does appear dehydrated on initial exam. A repeat evaluation she is feeling better. Will be discharged home with a course of antibiotics and encouragement to follow-up with cardiology. Given that she is on chronic anticoagulation therapy with her Eliquis have a low suspicion for pulmonary emboli. Lab Data Attestation: I reviewed the patient's lab results. Labs: Laboratory Results - last 24 hr 04/28/22 04/28/22 04/28/22 18:50 18:50 19:20 WBC Cancelled Corrected WBC Cancelled RBC Cancelled Hgb Cancelled Hct Cancelled MCV Cancelled MCH Cancelled MCHC Cancelled RDW Std Deviation Cancelled RDW Coeff of Yeimi Cancelled Plt Count Cancelled MPV Cancelled Immature Gran % (Auto) Cancelled Neut % (Auto) Cancelled Lymph % (Auto) Cancelled [place] % (Auto) Cancelled Eos % (Auto) Cancelled Baso % (Auto) Cancelled Absolute Neuts (auto) Cancelled Absolute Lymphs (auto) Cancelled Total Counted Cancelled Neutrophils % (Manual) Cancelled Band Neutrophils % Cancelled Lymphocytes % (Manual) Cancelled Monocytes % (Manual) Cancelled Eosinophils % (Manual) Cancelled Basophils % (Manual) Cancelled Metamyelocytes % Cancelled Myelocytes % Cancelled Promyelocytes % Cancelled Blast Cells % Cancelled Plasma Cell % (Manual) Cancelled Other Cells % Cancelled Nucleated RBC % Cancelled Nucleated RBCs/100 WBC Cancelled Differential Comment Cancelled Diff Path Review Cancelled Hypersegmented Neuts Cancelled Atypical Lymphocytes Cancelled Reactive Lymphocytes Cancelled Smudge Cells Cancelled Toxic Granulation Cancelled Toxic Vacuolation Cancelled Dohle Bodies Cancelled Lorena Rods Cancelled Platelet Estimate Cancelled Plt Morphology Comment Cancelled RBC Morphology Cancelled Polychromasia Cancelled Hypochromasia Cancelled Poikilocytosis Cancelled Basophilic Stippling Cancelled Anisocytosis Cancelled Microcytosis Cancelled Macrocytosis Cancelled Spherocytes Cancelled Sickle Cells Cancelled Target Cells Cancelled Tear Drop Cells Cancelled Ovalocytes Cancelled Stomatocytes Cancelled [place] Bodies Cancelled [place] Cells Cancelled Bite Cells Cancelled Crenated Cell Cancelled Acanthocytes (Spur) Cancelled Rouleaux Cancelled Schistocytes Cancelled Sodium 136 Potassium 4.4 Chloride 107 Carbon Dioxide 24.0 Anion Gap 5 BUN 34 H Creatinine 1.32 H Estim Creat Clear Calc 32.71 Est GFR (MDRD) Af Amer 52 L Est GFR (MDRD) Non-Af 43 L BUN/Creatinine Ratio 25.8 H Glucose 175 H Calcium 8.3 L Magnesium 2.0 Total Bilirubin 0.30 AST 15 ALT 21 Alkaline Phosphatase 85 Troponin I High Sens 9 Total Protein 6.3 L Albumin 3.3 Globulin 3.0 Albumin/Globulin Ratio 1.1 Lipase 195 Urine Color [place] Urine Clarity Clear Urine pH 7.0 Ur Specific [place] 1.010 Urine Protein 15 H Urine Glucose (UA) 1000 H Urine Ketones Negative Urine Occult Blood Negative Urine Nitrite Positive H Urine Bilirubin 1 H Urine Urobilinogen 4 H Ur Leukocyte Esterase Negative Urine RBC 0 SEEN Urine WBC 0 SEEN Ur Squamous Epith Cells 0-5 SEEN Urine Bacteria RARE Urine Mucus 0 SEEN 04/28/22 04/28/22 20:30 21:33 WBC 6.1 Corrected WBC RBC 3.66 L Hgb 11.4 L Hct 35.9 L MCV 98.1 MCH 31.1 MCHC 31.8 L RDW Std Deviation 54.0 H RDW Coeff of Yeimi 14.8 H Plt Count 163 MPV 10.3 Immature Gran % (Auto) 0.300 Neut % (Auto) 63.8 Lymph % (Auto) 21.9 [place] % (Auto) 8.9 Eos % (Auto) 4.3 Baso % (Auto) 0.8 Absolute Neuts (auto) 3.9 Absolute Lymphs (auto) 1.33 Total Counted Neutrophils % (Manual) Band Neutrophils % Lymphocytes % (Manual) Monocytes % (Manual) Eosinophils % (Manual) Basophils % (Manual) Metamyelocytes % Myelocytes % Promyelocytes % Blast Cells % Plasma Cell % (Manual) Other Cells % Nucleated RBC % 0 Nucleated RBCs/100 WBC Differential Comment Diff Path Review Hypersegmented Neuts Atypical Lymphocytes Reactive Lymphocytes Smudge Cells Toxic Granulation Toxic Vacuolation Dohle Bodies Lorena Rods Platelet Estimate Plt Morphology Comment RBC Morphology Polychromasia Hypochromasia Poikilocytosis Basophilic Stippling Anisocytosis Microcytosis Macrocytosis Spherocytes Sickle Cells Target Cells Tear Drop Cells Ovalocytes Stomatocytes [place] Bodies [place] Cells Bite Cells Crenated Cell Acanthocytes (Spur) Rouleaux Schistocytes Sodium Potassium Chloride Carbon Dioxide Anion Gap BUN Creatinine Estim Creat Clear Calc Est GFR (MDRD) Af Amer Est GFR (MDRD) Non-Af BUN/Creatinine Ratio Glucose Calcium Magnesium Total Bilirubin AST ALT Alkaline Phosphatase Troponin I High Sens 9 Total Protein Albumin Globulin Albumin/Globulin Ratio Lipase Urine Color Urine Clarity Urine pH Ur Specific [place] Urine Protein Urine Glucose (UA) Urine Ketones Urine Occult Blood Urine Nitrite Urine Bilirubin Urine Urobilinogen Ur Leukocyte Esterase Urine RBC Urine WBC Ur Squamous Epith Cells Urine Bacteria Urine Mucus Radiography Chest X-Ray - ED: 2 View, Read by ED Physician, Read by Radiologist and No Acute Disease Diagnostic Testing: Clinical Impression(s) from Imaging Studies Chest X-Ray 04/28/22 19:05 IMPRESSION: There are no acute findings. Electronically Signed: Efren Lockhart MD at 19:39 EST Reading Location ID and State: [facility] / [place] , Service support , Rhythm Strip Rhythm Strip: Sinus bradycardia Rate: 57 Ectopy: None EKG Initial EKG: Attestation: I personally reviewed and interpreted this EKG as follows: Interpretation: Sinus Bradycardia Comments: Sinus bradycardia at a rate of 57 bpm Left axis deviation Normal ST segments No change from the prior EKG on 04/02/2022 Discharge Plan Triage Chief Complaint: Chest Pain ED Provider: Gin Carballo Dx/Rx/DC Orders Clinical Impression: Chest pain of uncertain etiology, UTI (urinary tract infection) Instructions: ED Chest Pain, Uncertain Cause, ED Cystitis Female Adult Prescriptions: New sulfamethoxazole-trimethoprim [Bactrim DS] 800-160 mg tablet 1 tab PO BID 5 Days Qty: 10 0RF No Action Prolia 60 mg/mL syringe 60 mg subcut [id number] Qty: 1 1RF vibegron 75 mg tablet 75 mg PO DAILY ropinirole 1 mg tablet 1 mg PO DAILY Qty: 90 2RF Rx Instructions: 1 mg PO Lunch duloxetine [Cymbalta] 30 mg capsule,delayed release(DR/EC) 30 mg PO BID Qty: 180 2RF dicyclomine 20 mg tablet 20 mg PO BID PRN (Reason: abdominal discomfort) Qty: 180 2RF cholecalciferol (vitamin D3) 125 mcg (5,000 unit) capsule 125 mcg PO DAILY ferrous sulfate 325 mg (65 mg iron) tablet 325 mg PO Q OTHER DAY isosorbide mononitrate 30 mg tablet extended release 24 hr 30 mg PO BID eluxadoline 100 mg tablet 100 mg PO BID loperamide [Anti-Diarrheal (loperamide)] 2 mg tablet 2 mg PO Q6H PRN melatonin 3 mg capsule 3 mg PO HS PRN furosemide 20 mg tablet 20 mg PO QAM PRN (Reason: edema) Qty: 90 1RF potassium chloride 20 mEq tablet extended release 20 meq PO DAILY PRN (Reason: take with lasix) Qty: 90 1RF carvedilol 6.25 mg tablet 6.25 mg PO DAILY Rx Instructions: must administer with a meal/food lisinopril 20 mg tablet 20 mg PO DAILY Qty: 180 2RF Eliquis 5 mg tablet 5 mg PO DAILY Qty: 180 3RF aspirin [Adult Aspirin Regimen] 81 mg tablet,delayed release (DR/EC) 81 mg PO DAILY sitagliptin phosphate 100 mg tablet 100 mg PO DAILY Kesimpta Pen 20 mg/0.4 mL pen injector 20 mg subcut QMONTH Rx Instructions: begin at Week 4 of therapy acidophilus-pectin, citrus 100 million cell-10 mg capsule 1 cap PO DAILY Qty: 90 3RF sucralfate [Carafate] 1 gram tablet 1 g PO QAC Qty: 90 1RF pantoprazole 40 mg tablet,delayed release (DR/EC) 40 mg PO DAILY Qty: 90 0RF Farxiga 10 mg tablet 10 mg PO QAM Qty: 90 1RF modafinil 200 MG tablet 200 mg PO DAILY acetaminophen 500 MG tablet 1,000 mg PO TID PRN (Reason: pain -02/03) Qty: 1 0RF Rx Instructions: alternate with ibuprofen ondansetron 4 MG tablet 4 mg PO Q8H PRN PRN (Reason: Nausea) Qty: 10 0RF albuterol sulfate 2.5 mg /3 mL (0.083 %) Solution For Nebulization 2.5 mg inhalation Q2H PRN PRN (Reason: SOB/Wheezing) Qty: 0 0RF hydrocodone-acetaminophen 5-325 mg tablet 1 tab PO Q8H PRN (Reason: Pain) 7 Days Qty: 10 0RF pioglitazone 30 mg tablet 30 mg PO DAILY Qty: 90 1RF ascorbic acid (vitamin C) 500 mg tablet,chewable 500 mg PO DAILY Qty: 30 0RF atorvastatin 40 mg tablet 40 mg PO DAILY Qty: 30 11RF donepezil [Aricept] 10 mg tablet 20 mg PO DAILY Qty: 60 2RF hydroxyzine HCl 50 mg tablet 50 mg PO BID PRN (Reason: Itching) Qty: 60 2RF ropinirole 2 mg tablet 2 mg PO QHS Qty: 90 1RF Rx Instructions: administer 1-3 hours before bedtime glimepiride 4 mg tablet 4 mg PO DAILY Qty: 60 3RF Label Comments: diabetes; 2100. Rx Instructions: Hold if glucose less than 130 mg/dl Primary Care Provider: Carlton Rocha NP Referrals: Martell Cross NP, BUSINESS OBJECTS REPORT DEVELOPER-C [Med Staff - [facility] Practice Prof] - As soon as possible Carlton Rocha NP, BUSINESS OBJECTS REPORT DEVELOPER-C [Primary Care Provider] - Disposition Disposition: Home, Self Care
[2022-04-28 19:23] LABS: ALB/GLOB Ratio 1.1 RATIO (0.9-2.4); AST(SGOT) 15 U/L (15-37); Alanine Aminotransfer ALT/SGPT 21 U/L (13-56); Albumin, Serum 3.3 g/dL (3.2-5.0); Alkaline Phosphatase 85 U/L (45-117); Anion Gap 5 (5-15); BUN 34 mg/dL (7-18); BUN/Creat Ratio 25.8 RATIO (10-20); Calcium,Total 8.3 mg/dL (8.5-10.1); Chloride 107 mmol/L (98-107); Creatinine, Serum 1.32 mg/dL (0.55-1.02); EST Glomerular Filtration Rate 43 mL/min (>60); Est Glom Filt Rate - Afr Amer 52 mL/min (>60); Estimated Creatinine Clearance 32.71 ml/min; Glucose 175 mg/dL (74-106); Lipase 195 U/L (73-393); Potassium 4.4 mmol/L (3.5-5.1); Protein, Total 6.3 g/dL (6.4-8.2); Sodium Level 136 mmol/L (136-145); Troponin-I HS (w/2H Reflex) 9 pg/mL (3.0-54.0)
[2022-04-28 19:26] VITALS: BP 155/54; PULSE 58; RESP 18; O2SAT 97
[2022-04-28 19:34] LABS: Mucous, Urine 0 SEEN /hpf (<or=2+); Red Blood Cells-Urine 0 SEEN /hpf (0-5); White Blood Cells 0 SEEN /hpf (0-5)
[2022-04-28 19:35] LABS: Color, Urine Amber (Yellow); Glucose, Dipstick 1000 mg/dl (Normal); Ketone-Dipstick Negative (Negative); Leukocyte Esterase-Dipstick Negative /ul (Negative); Nitrite-Dipstick Positive (Negative); Occult Blood-Urine Negative /ul (Negative); Protein-Dipstick 15 mg/dl (Negative); Urine Clarity Clear (Clear); Urine Urobilinogen 4 mg/dl (Normal)
[2022-04-28 19:40] LABS: Urine Bilirubin Dipstick 1 mg/dL (Negative)
[2022-04-28 19:43] LABS: Bacteria RARE /hpf (None Seen); Squamous Epithelial Cells - UA 0-5 SEEN /hpf (5-10)
[2022-04-28 20:27] VITALS: BP 119/66; PULSE 60
[2022-04-28] MEDS: Nitroglycerin SL (ED/IMG/CATH) 0.4 MG TABLET SL (20:27)
[2022-04-28 20:33] VITALS: BP 102/59; PULSE 66; RESP 16; O2SAT 97
[2022-04-28 20:50] LABS: Absolute Lymphocyte Count 1.33 X10^3/uL (0.83-4.51); Absolute Neutrophil Count 3.9 X10^3/uL (2.0-7.7); Basophil# 0.05 X10^3/uL; Basophil% 0.8 % (0-1); Eosinophil# 0.26 X10^3/uL; Eosinophils% 4.3 % (0-5); Hematocrit 35.9 % (37-47); Hemoglobin 11.4 g/dL (12.0-15.0); Lymphocyte # 1.33 X10^3/ul (0.83-4.51); Lymphocyte % 21.9 % (19-41); Mean Corp Hgb Conc 31.8 g/dL (32-36); Mean Corpuscular Hgb 31.1 pg (27.0-32.0); Mean Corpuscular Volume 98.1 fL (81-99); Mean Platelet Vol. 10.3 fl (6.2-12.0); Monocyte# 0.54 X10^3/uL; Monocyte% 8.9 % (0-10); NRBC Flagged by Analyzer 0 % (0-5); Neutrophil # 3.87 X10^3/uL (2.7-7.7); Neutrophil % 63.8 % (47-70); Platelet Count 163 K/mm3 (150-450); RBC Distribution Width CV 14.8 % (11.6-14.6); Red Blood Count 3.66 M/mm3 (4.2-5.4); White Blood Count 6.1 K/mm3 (4.4-11.0)
[2022-04-28 20:55] LABS: Reflex Troponin-HS? (from REC) Y
[2022-04-28 22:00] LABS: Troponin-I HS 9 pg/mL (3.0-54.0)
[2022-04-28] MEDS: Smz/Tmp Ds Tablet 1 TABLET PO (23:46)
== END 2022-04-28 23:48 | disposition home or self-care (01) ==
PROVIDERS: Emergency Provider Emergency Medicine; PCP Nurse Practitioner Family; Visit Provider Emergency Medicine
DX: R07.9 Chest pain, unspecified (principal); N18.30 Chronic kidney disease, stage 3 unspecified; N39.0 Urinary tract infection, site not specified; I25.10 Atherosclerotic heart disease of native coronary artery without angina pectoris; I25.2 Old myocardial infarction; G47.33 Obstructive sleep apnea (adult) (pediatric); Z95.5 Presence of coronary angioplasty implant and graft
CPT/HCPCS: 71046; 80053; 81001; 83690; 83735; 84484; 85025; 87086; 87088; 93005; 96361; 96374; 96375; 99285; J7030; A4216; J2405

== ENCOUNTER 2022-04-30 13:22 | Emergency (ER) | payer MEDICARE, MEDICAID, SELFPAY ==
[2016-07-13 11:45] VITALS: BMI 31.4
[2022-04-30 13:23] VITALS: BP 117/58; PULSE 61; RESP 16; TEMP 36.2; O2SAT 96; BMI 30.2
--- NOTE | 2022-04-30 16:54 | EX.ED.DYSGE1 ---
HPI <JOHN Galicia - Last Filed: 04/30/22 22:37> History of Present Illness Chief Complaint: General Illness Narrative Narrative: Patient presents today with intermittent epigastric pain, vomiting, and concerns because she did not urinate for several hours earlier today. She states that the epigastric abdominal pain began on Thursday and the vomiting began today. She is also complaining of right-sided flank pain that started Thursday and dysuria. She states heat does seem to help with her abdominal and flank pain. Patient has a PMH of coronary artery disease, ischemic cardiomyopathy, chronic anticoagulation on Eliquis, type 2 diabetes mellitus, anxiety, depression, pancreatitis and CKD 3. She denies chest pain, shortness of breath, fever, hematemesis, melena, hematochezia, diarrhea, dysuria, and hematuria. PFSH <JOHN Galicia - Last Filed: 04/30/22 22:37> PFSH Medical History Anemia Anemia Anxiety Anxiety and depression Apical mural thrombus with acute IN Atherosclerotic heart disease of [place] coronary artery without angina pectoris Cataracts, both eyes Cervical spinal stenosis Chronic anticoagulation Chronic back pain Chronic neck pain with history of cervical spinal surgery Chronic systolic (congestive) heart failure CKD (chronic kidney disease) stage 3, GFR 30-59 ml/min Closed right tibial fracture COPD (chronic obstructive pulmonary disease) Diabetes mellitus type 2 in nonobese Essential (primary) hypertension Flank pain Fracture of distal end of right tibia Hematemesis Hiatal hernia History of peptic ulcer disease History of ST elevation myocardial infarction (STEMI) Hyperglycemia due to type 2 diabetes mellitus Hyperkalemia IBS (irritable bowel syndrome) Irritable bowel syndrome with diarrhea Ischemic cardiomyopathy Left ventricular hypertrophy Major depression Multiple sclerosis Nicotine abuse Nondisplaced pilon fracture of right tibia, initial encounter for closed fracture BRYAN (obstructive sleep apnea) Osteoporosis Osteoporosis Pain of right lower extremity Paroxysmal atrial fibrillation RLS (restless legs syndrome) Suicidal ideation Tachycardia Takotsubo syndrome Type 2 diabetes mellitus Vitamin B12 deficiency Home Medications modafinil 200 mg tablet 200 mg PO DAILY to stay awake 12/12/19 [History Last Taken 08/14/20 09:00] acetaminophen 500 mg tablet 1,000 mg PO TID PRN pain 1-02/03 #1 TAB 07/29/20 [Rx Last Taken Unknown] denosumab 60 mg/mL subcutaneous syringe (Prolia) 60 mg subcut [id number] #1 mL 12/25/20 [Rx Last Taken Unknown] vibegron 75 mg tablet 75 mg PO DAILY 07/03/21 [History Last Taken Unknown] ropinirole 1 mg tablet 1 mg PO DAILY restless legs #90 tabs 08/08/21 [Rx Last Taken Unknown] pioglitazone 30 mg tablet 30 mg PO DAILY diabetes #90 tabs 09/05/21 [Rx Last Taken Unknown] ascorbic acid (vitamin C) 500 mg chewable tablet 500 mg PO DAILY ##30 09/12/21 [Rx Last Taken Unknown] duloxetine 30 mg capsule,delayed release (Cymbalta) 30 mg PO BID mental health #180 caps 09/20/21 [Rx Last Taken Unknown] ondansetron 4 mg disintegrating tablet 4 mg PO Q8H PRN PRN Nausea #10 tabs 10/07/21 [Rx Last Taken Unknown] dicyclomine 20 mg tablet 20 mg PO BID PRN abdominal discomfort #180 tabs 10/10/21 [Rx Last Taken Unknown] atorvastatin 40 mg tablet 40 mg PO DAILY #30 tabs 10/30/21 [Rx Last Taken Unknown] cholecalciferol (vitamin D3) 125 mcg (5,000 unit) capsule 125 mcg PO DAILY 11/05/21 [History Last Taken Unknown] ferrous sulfate 325 mg (65 mg iron) tablet 325 mg PO Q OTHER DAY 11/05/21 [History Last Taken Unknown] albuterol sulfate 2.5 mg/3 mL (0.083 %) solution for nebulization 2.5 mg (3 mL) inhalation Q2H PRN PRN SOB/Wheezing #0 mL 11/20/21 [Rx Last Taken Unknown] hydrocodone-acetaminophen 5-325mg 5mg-325mg 1 tab PO Q8H PRN Pain 7 days #10 tabs 11/20/21 [Rx Last Taken Unknown] furosemide 20 mg tablet 20 mg PO QAM PRN edema #90 tabs 12/24/21 [Rx Last Taken Unknown] loperamide 2 mg tablet (Anti-Diarrheal (loperamide)) 2 mg PO Q6H PRN 12/24/21 [History Last Taken Unknown] melatonin 3 mg capsule 3 mg PO HS PRN 12/24/21 [History Last Taken Unknown] potassium chloride 20 mEq tablet,extended release 20 meq PO DAILY PRN take with lasix #90 tabs 12/24/21 [Rx Last Taken Unknown] apixaban 5 mg tablet (Eliquis) 5 mg PO DAILY #180 tabs 01/14/22 [Rx Last Taken Unknown] carvedilol 6.25 mg tablet 6.25 mg PO DAILY dose reduced while in [facility] 01/14/22 [History Last Taken Unknown] isosorbide mononitrate 30 mg tablet,extended release 24 hr 30 mg PO BID 01/14/22 [History Last Taken Unknown] lisinopril 20 mg tablet 20 mg PO DAILY #180 tabs 01/14/22 [Rx Last Taken Unknown] donepezil 10 mg tablet (Aricept) 20 mg PO DAILY #60 tabs 01/20/22 [Rx Last Taken Unknown] hydroxyzine HCl 50 mg tablet 50 mg PO BID PRN Itching #60 tabs 02/13/22 [Rx Last Taken Unknown] ropinirole 2 mg tablet 2 mg PO QHS #90 tabs 02/27/22 [Rx Last Taken Unknown] glimepiride 4 mg tablet 4 mg PO DAILY BLOOD SUGAR #60 tabs 03/04/22 [Rx Last Taken Unknown] acidophilus 100 million cell-pectin, citrus 10 mg capsule 1 cap PO DAILY supplement #90 caps 04/01/22 [Rx Last Taken Unknown] aspirin 81 mg tablet,delayed release (Adult Aspirin Regimen) 81 mg PO DAILY 04/01/22 [History Last Taken Unknown] dapagliflozin 10 mg tablet (Farxiga) 10 mg PO QAM #90 tabs 04/01/22 [Rx Last Taken Unknown] eluxadoline 100 mg tablet 100 mg PO BID 04/01/22 [History Last Taken Unknown] ofatumumab 20 mg/0.4 mL subcutaneous pen injector (Kesimpta Pen) 20 mg subcut QMONTH 04/01/22 [History Last Taken Unknown] pantoprazole 40 mg tablet,delayed release 40 mg PO DAILY #90 tabs 04/01/22 [Rx Last Taken Unknown] sitagliptin phosphate 100 mg tablet 100 mg PO DAILY 04/01/22 [History Last Taken Unknown] sucralfate 1 gram tablet (Carafate) 1 g PO QAC #90 tabs 04/01/22 [Rx Last Taken Unknown] sulfamethoxazole 800 mg-trimethoprim 160 mg tablet (Bactrim DS) 1 tab PO BID 5 days #10 tabs 04/28/22 [Rx Last Taken Unknown] ondansetron 4 mg disintegrating tablet 4 mg PO Q8H PRN nausea and vomiting #10 tabs 04/30/22 [Rx Last Taken Unknown] Allergy/AdvReac Type Severity Reaction Status Date / Time indomethacin [From Indocin] Allergy Hives Verified 04/30/22 13:23 indomethacin sodium Allergy Hives Verified 04/30/22 13:23 [From Indocin] iodine Allergy Hives Verified 04/30/22 13:23 propoxyphene napsylate Allergy Out of Verified 04/30/22 13:23 [From Darvocet-N] control aripiprazole [From Abilify] AdvReac Other Verified 04/30/22 13:23 aspirin AdvReac Upset Verified 04/30/22 13:23 Stomach clindamycin AdvReac Nausea Verified 04/30/22 13:23 metformin AdvReac Other Verified 04/30/22 13:23 sumatriptan [From Imitrex] AdvReac Vomiting Verified 04/30/22 13:23 Family History Father Cancer Lung cancer Mother Cancer Pancreatic cancer Surgical History History of amputation of left great toe History of back surgery History of cervical discectomy History of coronary artery stent placement (04/08/16) History of endoscopy History of left heart catheterization (09/25/20) History of left knee surgery History of loop recorder (06/2014) History of tonsillectomy and adenoidectomy Social History household members: none Smoking Status: Current every day smoker tobacco type: cigarettes alcohol intake: never substance use type: does not use caffeine: Yes Type: coffee Number of servings: 1 what type of physical activity do you participate in: none and other details: Physical Therapy ROS <JOHN Galicia - Last Filed: 04/30/22 22:37> ROS ED Constitutional Constitutional ED: Denies chills, fever(s) or sweats Eyes Eyes: Denies blurry vision or change in vision ENT ENT ED: Denies rhinorrhea or sore throat Cardiovascular Cardiovascular: Denies chest pain, palpitations or racing heartbeat Respiratory/Chest Respiratory/Chest: Denies cough, dyspnea or dyspnea on exertion Gastrointestinal Gastrointestinal: Reports abdominal pain, nausea and vomiting; Denies constipation, diarrhea or melena Genitourinary Genitourinary ED: Reports decreased urination; Denies dysuria, hematuria or urinary frequency Musculoskeletal Musculoskeletal: Denies back pain, myalgias or neck pain Integumentary Denies abscess, Abrasions or rash Neurologic Neurologic: Denies headache(s), paresthesias or weakness Psychiatric Psychiatric: Denies anxiety, depression or suicidal ideation EXAM <JOHN Galicia - Last Filed: 04/30/22 22:37> Physical Exam Const Vital Signs: 04/30/22 13:23 04/30/22 17:06 04/30/22 18:22 Temperature 97.1 F L Temperature Source Temporal Pulse Rate 61 54 L Respiratory Rate 16 15 Respiratory Effort Normal Respiratory Pattern Normal Blood Pressure 117/58 L 113/62 Blood Pressure Mean 77 79 Pulse Ox 96 98 Oxygen Delivery Method Room Air Room Air 04/30/22 18:53 Temperature Temperature Source Pulse Rate 73 Respiratory Rate 15 Respiratory Effort Respiratory Pattern Blood Pressure 164/78 H Blood Pressure Mean Pulse Ox 98 Oxygen Delivery Method Positive well nourished and well developed General Appearance ED: well developed and NAD HEENT Reports moist mucous membranes Eyes PERRL and EOMs intact bilaterally Neck no lymphadenopathy and supple Chest Wall inspection of chest normal Resp normal respiratory effort and clear to auscultation bilaterally Cardio regular rate, regular rhythm and no murmurs GI non-distended and no masses; Negative for hepatosplenomegaly GI Narrative: Some tenderness to palpation in the epigastric region. Negative Pool sign, negative McBurney's point tenderness. Auscultation: normoactive bowel sounds Palpation: soft; Negative for guarding or rebound tenderness present Back/Spine General Back: CVA tenderness right Extremity normal to inspection Neuro oriented x3, CN's II-XII intact bilaterally and no sensory deficits noted Sensorium / Orientation: alert Motor Exam: strength 5/5 throughout Psych mental status grossly normal Skin no rashes or lesions noted, no wounds and skin turgor normal <Dr. Yosef Lugo DO - Last Filed: 04/30/22 23:50> Physical Exam Const Vital Signs: 04/30/22 13:23 04/30/22 17:06 04/30/22 18:22 Temperature 97.1 F L Temperature Source Temporal Pulse Rate 61 54 L Respiratory Rate 16 15 Respiratory Effort Normal Respiratory Pattern Normal Blood Pressure 117/58 L 113/62 Blood Pressure Mean 77 79 Pulse Ox 96 98 Oxygen Delivery Method Room Air Room Air 04/30/22 18:53 Temperature Temperature Source Pulse Rate 73 Respiratory Rate 15 Respiratory Effort Respiratory Pattern Blood Pressure 164/78 H Blood Pressure Mean Pulse Ox 98 Oxygen Delivery Method [facility] <JOHN Galicia - Last Filed: 04/30/22 22:37> [facility] Narrative Medical decision making narrative: Patient presents today with epigastric pain and right-sided flank pain that she has had since Thursday. She is in no acute distress and is nontoxic-appearing. She is lying comfortably in the examination room. She was evaluated in the emergency department on Thursday for epigastric pain and chest pain. She did have acute cystitis at that time and was started on an antibiotic. UA today does not show any signs of infection. She does have a history of pancreatitis however, lipase is 125 today. Due to her right-sided flank pain and dysuria a CT of the abdomen and pelvis has been obtained. This did not show a kidney stone. Patient was given an IV fluid bolus, Tylenol, and Zofran. After these medications patient stated she felt a lot better and thinks she can be discharged home. She states she feels hungry and requested a sandwich before leaving. She has been given a prescription for Zofran. I am comfortable with patient discharging home in stable condition and patient is comfortable with plan. Lab Data Attestation: I reviewed the patient's lab results. Lab results narrative: CBC unremarkable, BUN 21, sodium 133, no acute cystitis. Lipase 125. Hematuria. Urine glucose elevated. Labs: Laboratory Results - last 24 hr 04/30/22 04/30/22 04/30/22 17:02 17:02 17:03 WBC 6.4 RBC 4.19 L Hgb 13.0 Hct 42.4 MCV 101.2 H MCH 31.0 MCHC 30.7 L RDW Std Deviation 54.6 H RDW Coeff of Ye[place] 14.6 Plt Count TNP MPV 10.6 Immature Gran % (Auto) 0.500 Neut % (Auto) 65.7 Lymph % (Auto) 19.6 Ball[place] % (Auto) 8.6 Eos % (Auto) 3.9 Baso % (Auto) 1.7 H Absolute Neuts (auto) 4.2 Absolute Lymphs (auto) 1.26 Nucleated RBC % 0 Platelet Estimate ADEQUATE Plt Morphology Comment LARGE RBC Morphology N CHROM Anisocytosis 1+ Macrocytosis 1+ Sodium 133 L Potassium 4.9 Chloride 109 H Carbon Dioxide 19.0 L Anion Gap 5 BUN 21 H Creatinine 0.89 Estim Creat Clear Calc 48.51 Est GFR (MDRD) Af Amer 82 Est GFR (MDRD) Non-Af 67 BUN/Creatinine Ratio 23.6 H Glucose 196 H Calcium 8.8 Lipase 125 Urine Color Yellow Urine Clarity Clear Urine pH 6.5 Ur Specific [place] 1.010 Urine Protein Negative Urine Glucose (UA) 1000 H Urine Ketones Negative Urine Occult Blood 10 H Urine Nitrite Negative Urine Bilirubin Negative Urine Urobilinogen Normal Ur Leukocyte Esterase 25 H Urine RBC 0 SEEN Urine WBC 0 SEEN Ur Squamous Epith Cells 0 SEEN Urine Bacteria RARE Urine Mucus 0 SEEN Radiography Diagnostic Testing: Clinical Impression(s) from Imaging Studies Abdomen/Pelvis CT 04/30/22 17:42 IMPRESSION: (NOT LISTED IN ORDER OF SIGNIFICANCE) There are no renal stones. There is no hydronephrosis. Mild constipation. Other findings as above. Electronically Signed: Efren Lockhart MD at 18:32 EST Reading Location ID and State: [address] [place] [address] , Service support , <Dr. Yosef Lugo, DO - Last Filed: 04/30/22 23:50> [facility] MDM Narrative Medical decision making narrative: This patient was seen with a PA/TURF SALES PERSON Individually assessed they patient including history and physical. I have reviewed everything on the chart that is available and agree with the documentation provided by the PA/TURF SALES PERSON including discussion about the assessment, treatment plan, discussion, and return precautions. Patient presents today with epigastric pain and right-sided flank pain that she has had since Thursday. She is in no acute distress and is nontoxic-appearing. She is lying comfortably in the examination room. She was evaluated in the emergency department on Thursday for epigastric pain and chest pain. She did have acute cystitis at that time and was started on an antibiotic. UA today does not show any signs of infection. She does have a history of pancreatitis however, lipase is 125 today. Due to her right-sided flank pain and dysuria a CT of the abdomen and pelvis has been obtained. This did not show a kidney stone. Patient was given an IV fluid bolus, Tylenol, and Zofran. After these medications patient stated she felt a lot better and thinks she can be discharged home. She states she feels hungry and requested a sandwich before leaving. She has been given a prescription for Zofran. I am comfortable with patient discharging home in stable condition and patient is comfortable with plan. Lab Data Labs: Laboratory Results - last 24 hr 04/30/22 04/30/22 04/30/22 17:02 17:02 17:03 WBC 6.4 RBC 4.19 L Hgb 13.0 Hct 42.4 MCV 101.2 H MCH 31.0 MCHC 30.7 L RDW Std Deviation 54.6 H RDW Coeff of [place]imi 14.6 Plt Count TNP MPV 10.6 Immature Gran % (Auto) 0.500 Neut % (Auto) 65.7 Lymph % (Auto) 19.6 [place] % (Auto) 8.6 Eos % (Auto) 3.9 Baso % (Auto) 1.7 H Absolute Neuts (auto) 4.2 Absolute Lymphs (auto) 1.26 Nucleated RBC % 0 Platelet Estimate ADEQUATE Plt Morphology Comment LARGE RBC Morphology N CHROM Anisocytosis 1+ Macrocytosis 1+ Sodium 133 L Potassium 4.9 Chloride 109 H Carbon Dioxide 19.0 L Anion Gap 5 BUN 21 H Creatinine 0.89 Estim Creat Clear Calc 48.51 Est GFR (MDRD) Af Amer 82 Est GFR (MDRD) Non-Af 67 BUN/Creatinine Ratio 23.6 H Glucose 196 H Calcium 8.8 Lipase 125 Urine Color Yellow Urine Clarity Clear Urine pH 6.5 Ur Specific [place] 1.010 Urine Protein Negative Urine Glucose (UA) 1000 H Urine Ketones Negative Urine Occult Blood 10 H Urine Nitrite Negative Urine Bilirubin Negative Urine Urobilinogen Normal Ur Leukocyte Esterase 25 H Urine RBC 0 SEEN Urine WBC 0 SEEN Ur Squamous Epith Cells 0 SEEN Urine Bacteria RARE Urine Mucus 0 SEEN Radiography Diagnostic Testing: Clinical Impression(s) from Imaging Studies Abdomen/Pelvis CT 04/30/22 17:42 IMPRESSION: (NOT LISTED IN ORDER OF SIGNIFICANCE) There are no renal stones. There is no hydronephrosis. Mild constipation. Other findings as above. Electronically Signed: Efren Lockhart MD at 18:32 EST Reading Location ID and State: [facility] / [place] , Service support , Discharge Plan Triage Chief Complaint: General Illness ED Midlevel Provider: Carine Santiago ED Provider: Yosef Lugo Dx/Rx/DC Orders Clinical Impression: Abdominal pain, Nausea & vomiting, Right flank pain Instructions: Abdominal Pain, ED Vomiting (Adult) Prescriptions: New ondansetron 4 mg tablet,disintegrating 4 mg PO Q8H PRN (Reason: nausea and vomiting) Qty: 10 0RF No Action Prolia 60 mg/mL syringe 60 mg subcut [id number] Qty: 1 1RF vibegron 75 mg tablet 75 mg PO DAILY ropinirole 1 mg tablet 1 mg PO DAILY Qty: 90 2RF Rx Instructions: 1 mg PO Lunch duloxetine [Cymbalta] 30 mg capsule,delayed release(DR/EC) 30 mg PO BID Qty: 180 2RF dicyclomine 20 mg tablet 20 mg PO BID PRN (Reason: abdominal discomfort) Qty: 180 2RF cholecalciferol (vitamin D3) 125 mcg (5,000 unit) capsule 125 mcg PO DAILY ferrous sulfate 325 mg (65 mg iron) tablet 325 mg PO Q OTHER DAY isosorbide mononitrate 30 mg tablet extended release 24 hr 30 mg PO BID eluxadoline 100 mg tablet 100 mg PO BID loperamide [Anti-Diarrheal (loperamide)] 2 mg tablet 2 mg PO Q6H PRN melatonin 3 mg capsule 3 mg PO HS PRN furosemide 20 mg tablet 20 mg PO QAM PRN (Reason: edema) Qty: 90 1RF potassium chloride 20 mEq tablet extended release 20 meq PO DAILY PRN (Reason: take with lasix) Qty: 90 1RF carvedilol 6.25 mg tablet 6.25 mg PO DAILY Rx Instructions: must administer with a meal/food lisinopril 20 mg tablet 20 mg PO DAILY Qty: 180 2RF Eliquis 5 mg tablet 5 mg PO DAILY Qty: 180 3RF aspirin [Adult Aspirin Regimen] 81 mg tablet,delayed release (DR/EC) 81 mg PO DAILY sitagliptin phosphate 100 mg tablet 100 mg PO DAILY Kesimpta Pen 20 mg/0.4 mL pen injector 20 mg subcut QMONTH Rx Instructions: begin at Week 4 of therapy acidophilus-pectin, citrus 100 million cell-10 mg capsule 1 cap PO DAILY Qty: 90 3RF sucralfate [Carafate] 1 gram tablet 1 g PO QAC Qty: 90 1RF pantoprazole 40 mg tablet,delayed release (DR/EC) 40 mg PO DAILY Qty: 90 0RF Farxiga 10 mg tablet 10 mg PO QAM Qty: 90 1RF modafinil 200 MG tablet 200 mg PO DAILY acetaminophen 500 MG tablet 1,000 mg PO TID PRN (Reason: pain -02/03) Qty: 1 0RF Rx Instructions: alternate with ibuprofen ondansetron 4 MG tablet 4 mg PO Q8H PRN PRN (Reason: Nausea) Qty: 10 0RF albuterol sulfate 2.5 mg /3 mL (0.083 %) Solution For Nebulization 2.5 mg inhalation Q2H PRN PRN (Reason: SOB/Wheezing) Qty: 0 0RF hydrocodone-acetaminophen 5-325 mg tablet 1 tab PO Q8H PRN (Reason: Pain) 7 Days Qty: 10 0RF sulfamethoxazole-trimethoprim [Bactrim DS] 800-160 mg tablet 1 tab PO BID 5 Days Qty: 10 0RF pioglitazone 30 mg tablet 30 mg PO DAILY Qty: 90 1RF ascorbic acid (vitamin C) 500 mg tablet,chewable 500 mg PO DAILY Qty: 30 0RF atorvastatin 40 mg tablet 40 mg PO DAILY Qty: 30 11RF donepezil [Aricept] 10 mg tablet 20 mg PO DAILY Qty: 60 2RF hydroxyzine HCl 50 mg tablet 50 mg PO BID PRN (Reason: Itching) Qty: 60 2RF ropinirole 2 mg tablet 2 mg PO QHS Qty: 90 1RF Rx Instructions: administer 1-3 hours before bedtime glimepiride 4 mg tablet 4 mg PO DAILY Qty: 60 3RF Label Comments: diabetes; 2100. Rx Instructions: Hold if glucose less than 130 mg/dl Primary Care Provider: Carlton Rocha NP Referrals: Rocha,Carlton TURF SALES PERSON, TURF SALES PERSON-C [Primary Care Provider] - 3-5 Days Activity Restrictions/Additional Instructions: Please follow-up with PCP. Stay well-hydrated, return if symptoms worsen. Disposition Disposition: Home, Self Care Discharge Date/Time: 04/30/22 19:01
[2022-04-30 17:10] LABS: Mucous, Urine 0 SEEN /hpf (<or=2+); Red Blood Cells-Urine 0 SEEN /hpf (0-5); Squamous Epithelial Cells - UA 0 SEEN /hpf (5-10); White Blood Cells 0 SEEN /hpf (0-5)
[2022-04-30 17:13] LABS: Color, Urine Yellow (Yellow); Glucose, Dipstick 1000 mg/dl (Normal); Ketone-Dipstick Negative (Negative); Leukocyte Esterase-Dipstick 25 /ul (Negative); Nitrite-Dipstick Negative (Negative); Occult Blood-Urine 10 /ul (Negative); Protein-Dipstick Negative (Negative); Urine Bilirubin Dipstick Negative (Negative); Urine Clarity Clear (Clear); Urine Urobilinogen Normal (Normal); Urine pH 6.5 (5.0 - 8.0)
[2022-04-30 17:15] LABS: Absolute Lymphocyte Count 1.26 X10^3/uL (0.83-4.51); Absolute Neutrophil Count 4.2 X10^3/uL (2.0-7.7); Basophil# 0.11 X10^3/uL; Basophil% 1.7 % (0-1); Eosinophil# 0.25 X10^3/uL; Eosinophils% 3.9 % (0-5); Hematocrit 42.4 % (37-47); Lymphocyte # 1.26 X10^3/ul (0.83-4.51); Lymphocyte % 19.6 % (19-41); Mean Corp Hgb Conc 30.7 g/dL (32-36); Mean Corpuscular Volume 101.2 fL (81-99); Mean Platelet Vol. 10.6 fl (6.2-12.0); Monocyte# 0.55 X10^3/uL; Monocyte% 8.6 % (0-10); NRBC Flagged by Analyzer 0 % (0-5); Neutrophil # 4.22 X10^3/uL (2.7-7.7); Neutrophil % 65.7 % (47-70); POSITIVE COUNT YES; RBC Distribution Width CV 14.6 % (11.6-14.6); RBC Distribution Width SD 54.6 fl (35.1-43.9); Red Blood Count 4.19 M/mm3 (4.2-5.4); White Blood Count 6.4 K/mm3 (4.4-11.0)
[2022-04-30 17:21] LABS: Bacteria RARE /hpf (None Seen)
[2022-04-30 17:31] LABS: Differential Indicated SCAN CRITERIA MET
[2022-04-30] MEDS: 0.9% Normal Saline 1,000 ML 999 ML IV (17:37)
[2022-04-30] MEDS: Ondansetron 4 MG/2 ML Vial IV (17:37)
--- NOTE | 2022-04-30 17:42 | CT_ITS ---
STUDY: CT Abdomen And Pelvis W/O Contrast Injection 04/30/2022 6:28 PM REASON FOR EXAM: Female, 66 years old. Abdominal pain R flank pain x3 days, dysuria Individualized dose optimization techniques were used for this CT. COMPARISON: 11.20.17. TECHNIQUE: CT Abdomen And Pelvis W/O Contrast Injection FINDINGS: There are atherosclerotic calcifications of visualized coronary arteries. The visualized portions of the heart are within normal limits. Normal liver. Normal gallbladder and extrahepatic biliary system. Normal spleen. Normal pancreas. Normal bilateral adrenal glands. No acute findings of the right kidney. No acute findings of the left kidney. Normal visualized stomach. Normal small intestine. Stool throughout the colon. The appendix is visualized and appears normal. There are calcifications of the abdominal aorta. This is consistent for atherosclerotic disease. There is no abdominal aortic aneurysm. Normal inferior vena cava. Subcentimeter mesenteric lymph nodes. Normal urinary bladder. The uterus is lobulated in contour. There are multiple partially calcified masses in the uterus. This is consistent for a fibroid/ myomatous uterus. There is an umbilical hernia containing fat. There are diffuse degenerative changes of the visualized lumbar spine. There is scoliosis of the lumbar spine. There is bilateral neural foraminal stenosis at L4-5 and L5-S1. Calcified subcutaneous gluteal calcifications. Lumbar laminectomy changes. CT/Abdomen/Pelvis without Cont IMPRESSION: (NOT LISTED IN ORDER OF SIGNIFICANCE) There are no renal stones. There is no hydronephrosis. Mild constipation. Other findings as above. Electronically Signed: Efren Lockhart MD at 18:32 EST ,
[2022-04-30 17:49] LABS: Anion Gap 5 (5-15); BUN 21 mg/dL (7-18); BUN/Creat Ratio 23.6 RATIO (10-20); Calcium,Total 8.8 mg/dL (8.5-10.1); Chloride 109 mmol/L (98-107); Creatinine, Serum 0.89 mg/dL (0.55-1.02); EST Glomerular Filtration Rate 67 mL/min (>60); Est Glom Filt Rate - Afr Amer 82 mL/min (>60); Estimated Creatinine Clearance 48.51 ml/min; Glucose 196 mg/dL (74-106); Lipase 125 U/L (73-393); Potassium 4.9 mmol/L (3.5-5.1); Sodium Level 133 mmol/L (136-145)
[2022-04-30 17:50] LABS: Anisocytosis 1+; Macrocytosis 1+; Platelet Estimate ADEQUATE (ADEQ); Platelet Morphology LARGE; Red Cell Morphology N CHROM NORMAL (NORM C&C)
[2022-04-30] MEDS: Acetaminophen 325 MG Tablet 650 MG PO (18:14)
[2022-04-30 18:22] VITALS: BP 113/62; PULSE 54; RESP 15; O2SAT 98
[2022-04-30 18:53] VITALS: BP 164/78; PULSE 73; RESP 15; O2SAT 98
== END 2022-04-30 19:01 | disposition home or self-care (01) ==
PROVIDERS: Physician Assistant; Emergency Provider Student in an Organized Health Care Education/Training Program; PCP Nurse Practitioner Family; Visit Provider Student in an Organized Health Care Education/Training Program
DX: R10.13 Epigastric pain (principal); J44.9 Chronic obstructive pulmonary disease, unspecified; I13.0 Hypertensive heart and chronic kidney disease with heart failure and stage 1 through stage 4 chronic kidney disease, or unspecified chronic kidney disease; I50.22 Chronic systolic (congestive) heart failure; E11.22 Type 2 diabetes mellitus with diabetic chronic kidney disease; N18.30 Chronic kidney disease, stage 3 unspecified; R11.2 Nausea with vomiting, unspecified; I25.10 Atherosclerotic heart disease of native coronary artery without angina pectoris; R07.9 Chest pain, unspecified; F41.9 Anxiety disorder, unspecified; F32.A Depression, unspecified
CPT/HCPCS: 74176; 80048; 81001; 83690; 85025; 96361; 96374; 99285; J7030; A4216; J2405

== ENCOUNTER → 2022-05-06 | Outpatient (CLI) | payer MEDICARE, MEDICAID, SELFPAY ==
[2016-07-13 11:45] VITALS: BMI 31.4
== END | disposition home or self-care (01) ==
LOC: LABSPEC 09:57
PROVIDERS: PCP Nurse Practitioner Family; Referring Provider Nurse Practitioner Family; Visit Provider Nurse Practitioner Family
DX: R09.81 Nasal congestion (principal)
CPT/HCPCS: 87635; U0003; U0005

== ENCOUNTER 2022-05-25 07:16 | Emergency (ER) | payer MEDICARE, MEDICAID, SELFPAY ==
[2016-07-13 11:45] VITALS: BMI 31.4
[2022-05-25 07:18] VITALS: BP 133/64; PULSE 82; RESP 18; TEMP 36.6; O2SAT 93; BMI 30.9
--- NOTE | 2022-05-25 07:33 | EKG12_ITS ---
Test Reason : DIZZINESS Blood Pressure : / mmHG Vent. Rate : 076 BPM Atrial Rate : 076 BPM P-R Int : 152 ms QRS Dur : 100 ms QT Int : 404 ms P-R-T Axes : 059 -77 079 degrees QTc Int : 454 ms Normal sinus rhythm Left axis deviation Incomplete right bundle branch block Septal infarct , age undetermined Inferior infarct , age undetermined Abnormal ECG Confirmed by ALLAN WITT, DORYS ([id number]), production editor YUNG MUNGUIA ([id number]) on 05/26/2022 10:05:59 AM Referred By: Confirmed By:DORYS LEMUS MD
--- NOTE | 2022-05-25 07:34 | EDS_ITS ---
HPI History of Present Illness Chief Complaint: Dizziness Detail of Chief Complaint: Fall with right rib cage pain. Informant: patient Onset/Context/Timing Onset: Today and Hours Context: Sudden Onset Timing: Intermittent Current Severity: Mild Maximum Severity: Mild Narrative Narrative: 66-year-old female with extensive past medical history including anemia, MO, CAD, CKD, COPD, diabetes, hypertension, A. fib on the blood thinner Eliquis. States she was at home today. She was seated in chair. She went to get up became dizzy lost her balance and fell as she went down she had a rib cage on her walker and grazed her forehead. She denies any LOC. No headache. She says this is happened before. Complaining of some right lower rib cage pain. No abdominal pain. No recent vomiting or diarrhea. No recent hospitalization but she has had recent emergency department visits. Recently had a new medication added Seroquel. Prior similar symptoms: Yes Recent Illness/Hospitalization: No PFSH PFSH Medical History Anemia Anemia Anxiety Anxiety and depression Apical mural thrombus with acute MO Atherosclerotic heart disease of [place] coronary artery without angina pectoris Cataracts, both eyes Cervical spinal stenosis Chronic anticoagulation Chronic back pain Chronic neck pain with history of cervical spinal surgery Chronic systolic (congestive) heart failure CKD (chronic kidney disease) stage 3, GFR 30-59 ml/min Closed right tibial fracture COPD (chronic obstructive pulmonary disease) Diabetes mellitus type 2 in nonobese Essential (primary) hypertension Flank pain Fracture of distal end of right tibia Hematemesis Hiatal hernia History of peptic ulcer disease History of ST elevation myocardial infarction (STEMI) Hyperglycemia due to type 2 diabetes mellitus Hyperkalemia IBS (irritable bowel syndrome) Insomnia Irritable bowel syndrome with diarrhea Ischemic cardiomyopathy Left ventricular hypertrophy Major depression Multiple sclerosis Nicotine abuse Nondisplaced pilon fracture of right tibia, initial encounter for closed fracture BRYAN (obstructive sleep apnea) Osteoporosis Osteoporosis Pain of right lower extremity Paroxysmal atrial fibrillation RLS (restless legs syndrome) Suicidal ideation Tachycardia Takotsubo syndrome Type 2 diabetes mellitus URI (upper respiratory infection) Vitamin B12 deficiency Home Medications modafinil 200 mg tablet 200 mg PO DAILY to stay awake 12/12/19 [History Last Taken 08/14/20 09:00] acetaminophen 500 mg tablet 1,000 mg PO TID PRN pain 1-10/10 #1 TAB 07/29/20 [Rx Last Taken Unknown] denosumab 60 mg/mL subcutaneous syringe (Prolia) 60 mg subcut [id number] #1 mL 12/25/20 [Rx Last Taken Unknown] vibegron 75 mg tablet 75 mg PO DAILY 07/03/21 [History Last Taken Unknown] ropinirole 1 mg tablet 1 mg PO DAILY restless legs #90 tabs 08/08/21 [Rx Last Taken Unknown] ascorbic acid (vitamin C) 500 mg chewable tablet 500 mg PO DAILY ##30 09/12/21 [Rx Last Taken Unknown] duloxetine 30 mg capsule,delayed release (Cymbalta) 30 mg PO BID mental health #180 caps 09/20/21 [Rx Last Taken Unknown] ondansetron 4 mg disintegrating tablet 4 mg PO Q8H PRN PRN Nausea #10 tabs 10/07/21 [Rx Last Taken Unknown] dicyclomine 20 mg tablet 20 mg PO BID PRN abdominal discomfort #180 tabs 10/10/21 [Rx Last Taken Unknown] atorvastatin 40 mg tablet 40 mg PO DAILY #30 tabs 10/30/21 [Rx Last Taken Unknown] cholecalciferol (vitamin D3) 125 mcg (5,000 unit) capsule 125 mcg PO DAILY 11/05/21 [History Last Taken Unknown] ferrous sulfate 325 mg (65 mg iron) tablet 325 mg PO Q OTHER DAY 11/05/21 [History Last Taken Unknown] albuterol sulfate 2.5 mg/3 mL (0.083 %) solution for nebulization 2.5 mg (3 mL) inhalation Q2H PRN PRN SOB/Wheezing #0 mL 11/20/21 [Rx Last Taken Unknown] hydrocodone-acetaminophen 5-325mg 5mg-325mg 1 tab PO Q8H PRN Pain 7 days #10 tabs 11/20/21 [Rx Last Taken Unknown] furosemide 20 mg tablet 20 mg PO QAM PRN edema #90 tabs 12/24/21 [Rx Last Taken Unknown] loperamide 2 mg tablet (Anti-Diarrheal (loperamide)) 2 mg PO Q6H PRN 12/24/21 [History Last Taken Unknown] melatonin 3 mg capsule 3 mg PO HS PRN 12/24/21 [History Last Taken Unknown] potassium chloride 20 mEq tablet,extended release 20 meq PO DAILY PRN take with lasix #90 tabs 12/24/21 [Rx Last Taken Unknown] apixaban 5 mg tablet (Eliquis) 5 mg PO DAILY #180 tabs 01/14/22 [Rx Last Taken Unknown] carvedilol 6.25 mg tablet 6.25 mg PO DAILY dose reduced while in [facility] 01/14/22 [History Last Taken Unknown] isosorbide mononitrate 30 mg tablet,extended release 24 hr 30 mg PO BID 01/14/22 [History Last Taken Unknown] lisinopril 20 mg tablet 20 mg PO DAILY #180 tabs 01/14/22 [Rx Last Taken Unknown] hydroxyzine HCl 50 mg tablet 50 mg PO BID PRN Itching #60 tabs 02/13/22 [Rx Last Taken Unknown] ropinirole 2 mg tablet 2 mg PO QHS #90 tabs 02/27/22 [Rx Last Taken Unknown] glimepiride 4 mg tablet 4 mg PO DAILY BLOOD SUGAR #60 tabs 03/04/22 [Rx Last Taken Unknown] acidophilus 100 million cell-pectin, citrus 10 mg capsule 1 cap PO DAILY supplement #90 caps 04/01/22 [Rx Last Taken Unknown] aspirin 81 mg tablet,delayed release (Adult Aspirin Regimen) 81 mg PO DAILY 04/01/22 [History Last Taken Unknown] dapagliflozin 10 mg tablet (Farxiga) 10 mg PO QAM #90 tabs 04/01/22 [Rx Last Taken Unknown] eluxadoline 100 mg tablet 100 mg PO BID 04/01/22 [History Last Taken Unknown] ofatumumab 20 mg/0.4 mL subcutaneous pen injector (Kesimpta Pen) 20 mg subcut QMONTH 04/01/22 [History Last Taken Unknown] pantoprazole 40 mg tablet,delayed release 40 mg PO DAILY #90 tabs 04/01/22 [Rx Last Taken Unknown] sitagliptin phosphate 100 mg tablet 100 mg PO DAILY 04/01/22 [History Last Taken Unknown] sucralfate 1 gram tablet (Carafate) 1 g PO QAC #90 tabs 04/01/22 [Rx Last Taken Unknown] ondansetron 4 mg disintegrating tablet 4 mg PO Q8H PRN nausea and vomiting #10 tabs 04/30/22 [Rx Last Taken Unknown] donepezil 10 mg tablet (Aricept) 20 mg PO DAILY #60 tabs 05/05/22 [Rx Last Taken Unknown] pioglitazone 30 mg tablet 30 mg PO DAILY diabetes #90 tabs 05/05/22 [Rx Last Taken Unknown] quetiapine 25 mg tablet (Seroquel) 25 mg PO QHS #30 tabs 05/12/22 [Rx Last Taken Unknown] Allergy/AdvReac Type Severity Reaction Status Date / Time indomethacin [From Indocin] Allergy Hives Verified 05/25/22 07:26 indomethacin sodium Allergy Hives Verified 05/25/22 07:26 [From Indocin] iodine Allergy Hives Verified 05/25/22 07:26 propoxyphene napsylate Allergy Out of Verified 05/25/22 07:26 [From Darvocet-N] control aripiprazole [From Abilify] AdvReac Other Verified 05/25/22 07:26 aspirin AdvReac Upset Verified 05/25/22 07:26 Stomach clindamycin AdvReac Nausea Verified 05/25/22 07:26 metformin AdvReac Other Verified 05/25/22 07:26 sumatriptan [From Imitrex] AdvReac Vomiting Verified 05/25/22 07:26 Family History Father Cancer Lung cancer Mother Cancer Pancreatic cancer Surgical History History of amputation of left great toe History of back surgery History of cervical discectomy History of coronary artery stent placement (04/08/16) History of endoscopy History of left heart catheterization (09/25/20) History of left knee surgery History of loop recorder (06/2014) History of tonsillectomy and adenoidectomy Social History household members: none Smoking Status: Current every day smoker tobacco type: cigarettes alcohol intake: never substance use type: does not use caffeine: Yes Type: coffee Number of servings: 1 what type of physical activity do you participate in: none and other details: Physical Therapy ROS ROS ED Review of Systems ROS Unobtainable: Denies due to encephalopathy Constitutional Constitutional ED: Denies chills or fever(s) Eyes Eyes: Denies blurry vision ENT ENT ED: Denies ear pain Cardiovascular Cardiovascular: Denies chest pain Respiratory/Chest Respiratory/Chest: Denies cough or dyspnea Gastrointestinal Gastrointestinal: Denies abdominal pain Genitourinary Genitourinary ED: Denies dysuria or hematuria Musculoskeletal Musculoskeletal: Denies arthralgias Integumentary Denies abscess Neurologic Neurologic: Denies headache(s) Psychiatric Psychiatric: Denies anxiety Endocrine Endocrinology: Denies cold intolerance Hematologic/Lymphatic Hematologic/Lymphatic: Reports none Allergic/Immunologic Allergic/Immunologic ED: Denies mouth swelling or tongue swelling EXAM Physical Exam Narrative Exam Narrative: 66-year-old female. No acute distress. Vital signs stable afebrile. Pulse ox 93% on room air no hypoxia. H EENT exam unremarkable atraumatic. Moist mucous membranes. There is no areas of tenderness hematoma to her scalp. No lacerations. C-spine nontender. Back nontender. Kyphotic. She does have right posterior lateral rib cage tenderness. There is no crepitance or subcu air. There is no signs of bruising or trauma. Lungs are clear to auscultation bilaterally. Heart regular rhythm rate about 80 no murmur. Anterior chest wall nontender. Abdomen soft nontender. Pelvic girdle intact. Moving all 4 extremities. 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 Dorsi plantarflexion intact. Normal range of motion both upper and lower extremities. No deformity. Neurologically she is awake and alert with no focal motor deficits. Const Vital Signs: 05/25/22 07:18 05/25/22 07:26 05/25/22 08:03 Temperature 98 F Temperature Source Oral Pulse Rate 82 Pulse Rate [Lying] 77 Pulse Rate [Sitting (for 1 minute prior to obtaining)] 88 Pulse Rate [Standing (for 1 minute prior to obtaining)] 91 Respiratory Rate 18 Respiratory Pattern Normal Blood Pressure 133/64 H Blood Pressure [Lying] 146/68 H Blood Pressure [Sitting (for 1 minute prior to obtaining)] 141/76 H Blood Pressure [Standing (for 1 minute prior to obtaining)] 135/86 H Blood Pressure Mean 87 Blood Pressure Mean [Lying] 94 Blood Pressure Mean [Sitting (for 1 minute prior to obtaining)] 97 Blood Pressure Mean [Standing (for 1 minute prior to obtaining)] 102 Pulse Ox 93 Oxygen Delivery Method Room Air Positive well nourished, well developed and obese; Negative for cachectic, contractures or unkempt General Appearance ED: well developed and NAD; Negative for unkempt, cachectic, contractures, cyanotic, diaphoretic or pallor Nutritional Appearance: obese; Negative for cachectic HEENT Reports moist mucous membranes; Denies dry mucous membranes Negative for trauma or tenderness Mouth ED: No dry mucous membranes Mouth: No dry mucous membranes Eyes EOMs intact bilaterally General Eye ED: Negative for pale conjunctiva or scleral icterus Neck no lymphadenopathy, supple and no JVD General: Negative for tenderness Chest Wall inspection of chest normal and palpation of chest normal Chest: Negative for other Resp normal respiratory effort and clear to auscultation bilaterally Effort and Inspection: Negative for retractions Auscultation: Negative for rales, rhonchi or wheezes Cardio regular rate, regular rhythm, S1 normal heart sound, S2 normal heart sound and no murmurs Palpation: Negative for palpable S3 Rate: Negative for bradycardia Rhythm: Negative for abnormal rhythm GI normal to inspection, nondistended, normoactive bowel sounds, non-tender, non- distended and no masses Inspection: Negative for abdominal distention Auscultation: normoactive bowel sounds Palpation: soft; Negative for tender or guarding Back/Spine no CVA tenderness Back/Spine Narrative: Right posterior lateral lower rib cage tenderness. No crepitance. General Back: Negative for CVA tenderness Cervical Spine: Negative for cervical spine tenderness Thoracic Spine / Upper Back: Negative for thoracic spinal tenderness Lumbar Spine / Lower Back: Negative for lumbar spinal tenderness Extremity normal to inspection General Extremety ED: Negative for edema or tenderness General Extremity: Negative for edema Neuro oriented x3 and CN's II-XII intact bilaterally Sensorium / Orientation: alert; Negative for orientation impaired, lethargic or stuporous Motor Exam: strength 5/5 throughout Psych mental status grossly normal Appearance: Negative for unkempt Attitude: No agitated Mood & Affect: Negative for depressed, anxious or tearful Skin no rashes or lesions noted, no wounds and skin turgor normal General Skin Exam: elasticity normal; Negative for jaundice or pallor Lesions: No lesion noted Rashes: No rashes noted Trauma: Negative for abrasion Wounds: Negative for wounds noted MDM MDM MDM Narrative Medical decision making narrative: 66-year-old female 1 from a sitting to a standing position became dizzy she was standing lost her balance and fell. No significant injuries on exam. Will check screening labs to make sure she does not have worsening anemia because she is chronically anemic. Make sure she is not dehydrated. EKG for any type of dysrhythmia but currently she is a heart rate in the 80s. Chest x-ray to rule out any obvious rib fracture. She had no significant head injury. I do not think she needs imaging there. She has no signs of stroke. Exam is pretty benign. We will do orthostatic vital signs also. Repeat exam at 9:06 AM patient is doing well. Unchanged. Her orthostatic vital signs per nursing were unremarkable. She requested some cough syrup. Patient does not need to be admitted. She will be discharged home. She will be given a single dose of Robitussin here. Follow-up with her primary care physician. Return if worse. Lab Data Attestation: I reviewed the patient's lab results. Lab results narrative: CBC is unremarkable white count 5.6. H&H of 13.8 and 44. Platelets slightly low at 140,000. Electrolytes show a gap of 7 normal BUN of 16 and creatinine 0.7. Glucose elevated 268. Patient is a known diabetic. Urinalysis shows no white or red cells no bacteria no nitrates. Labs: Laboratory Results - last 24 hr 05/25/22 05/25/22 05/25/22 07:45 07:52 07:52 WBC 5.6 RBC 4.51 Hgb 13.8 Hct 44.0 MCV 97.6 MCH 30.6 MCHC 31.4 L RDW Std Deviation 51.6 H RDW Coeff of Yeimi 14.2 Plt Count 148 L MPV 9.6 Immature Gran % (Auto) 0.400 Neut % (Auto) 67.7 Lymph % (Auto) 12.9 L Peach % (Auto) 15.6 H Eos % (Auto) 2.3 Baso % (Auto) 1.1 H Absolute Neuts (auto) 3.8 Absolute Lymphs (auto) 0.72 L Nucleated RBC % 0 Sodium 136 Potassium 3.8 Chloride 102 Carbon Dioxide 27.0 Anion Gap 7 BUN 16 Creatinine 0.73 Estim Creat Clear Calc 43.18 Est GFR (MDRD) Af Amer 102 Est GFR (MDRD) Non-Af 84 BUN/Creatinine Ratio 21.8 H Glucose 268 H Calcium 10.1 Urine Color Yellow Urine Clarity Clear Urine pH 7.0 Ur Specific Irma 1.010 Urine Protein Negative Urine Glucose (UA) 1000 H Urine Ketones Negative Urine Occult Blood 10 H Urine Nitrite Negative Urine Bilirubin Negative Urine Urobilinogen 1 H Ur Leukocyte Esterase Negative Urine RBC 0 SEEN Urine WBC 0 SEEN Ur Squamous Epith Cells 0-5 SEEN Urine Bacteria 0 SEEN Urine Mucus 0 SEEN Radiography Chest X-Ray - ED: 1 View, Read by ED Physician, Read by Radiologist, Heart, Lungs, Mediastinum, Bony Structures, No Acute Disease and Chronic Changes Diagnostic Testing: Clinical Impression(s) from Imaging Studies Chest X-Ray 05/25/22 08:00 IMPRESSION: No acute findings in the chest and unchanged when compared to 04/28/2022. Electronically Signed: Bonifacio Henao MD at 8:12 EST , Chest x-ray, portable, single view interpreted both by myself and radiologist shows no acute abnormality. No significant change from prior. No obvious rib fracture. No pneumothorax. No pneumonia. Rhythm Strip Rhythm Strip: Sinus Rhythm Rate: 76 Ectopy: None EKG Initial EKG: Attestation: I personally reviewed and interpreted this EKG as follows: Interpretation: Sinus Rhythm and No Acute Injury Pattern Comments: Normal sinus rhythm rate of 76 no acute signs of MO or ischemia. Old infarct. EKG change from from April 28, 2022. Prior EKG tracings: available for review Prior: Unchanged Discharge Plan Triage Chief Complaint: Dizziness ED Provider: Mark Anthony Blackburn Dx/Rx/DC Orders Clinical Impression: Fall, History of ST elevation myocardial infarction (STEMI), Type 2 diabetes mellitus Instructions: ED Fall with Uncertain Cause Prescriptions: No Action Prolia 60 mg/mL syringe 60 mg subcut [id number] Qty: 1 1RF vibegron 75 mg tablet 75 mg PO DAILY ropinirole 1 mg tablet 1 mg PO DAILY Qty: 90 2RF Rx Instructions: 1 mg PO Lunch duloxetine [Cymbalta] 30 mg capsule,delayed release(DR/EC) 30 mg PO BID Qty: 180 2RF dicyclomine 20 mg tablet 20 mg PO BID PRN (Reason: abdominal discomfort) Qty: 180 2RF cholecalciferol (vitamin D3) 125 mcg (5,000 unit) capsule 125 mcg PO DAILY ferrous sulfate 325 mg (65 mg iron) tablet 325 mg PO Q OTHER DAY isosorbide mononitrate 30 mg tablet extended release 24 hr 30 mg PO BID eluxadoline 100 mg tablet 100 mg PO BID loperamide [Anti-Diarrheal (loperamide)] 2 mg tablet 2 mg PO Q6H PRN melatonin 3 mg capsule 3 mg PO HS PRN furosemide 20 mg tablet 20 mg PO QAM PRN (Reason: edema) Qty: 90 1RF potassium chloride 20 mEq tablet extended release 20 meq PO DAILY PRN (Reason: take with lasix) Qty: 90 1RF carvedilol 6.25 mg tablet 6.25 mg PO DAILY Rx Instructions: must administer with a meal/food lisinopril 20 mg tablet 20 mg PO DAILY Qty: 180 2RF Eliquis 5 mg tablet 5 mg PO DAILY Qty: 180 3RF aspirin [Adult Aspirin Regimen] 81 mg tablet,delayed release (DR/EC) 81 mg PO DAILY sitagliptin phosphate 100 mg tablet 100 mg PO DAILY Kesimpta Pen 20 mg/0.4 mL pen injector 20 mg subcut QMONTH Rx Instructions: begin at Week 4 of therapy acidophilus-pectin, citrus 100 million cell-10 mg capsule 1 cap PO DAILY Qty: 90 3RF sucralfate [Carafate] 1 gram tablet 1 g PO QAC Qty: 90 1RF pantoprazole 40 mg tablet,delayed release (DR/EC) 40 mg PO DAILY Qty: 90 0RF Farxiga 10 mg tablet 10 mg PO QAM Qty: 90 1RF quetiapine [Seroquel] 25 mg tablet 25 mg PO QHS Qty: 30 2RF modafinil 200 MG tablet 200 mg PO DAILY acetaminophen 500 MG tablet 1,000 mg PO TID PRN (Reason: pain 1-02/03) Qty: 1 0RF Rx Instructions: alternate with ibuprofen ondansetron 4 MG tablet 4 mg PO Q8H PRN PRN (Reason: Nausea) Qty: 10 0RF albuterol sulfate 2.5 mg /3 mL (0.083 %) Solution For Nebulization 2.5 mg inhalation Q2H PRN PRN (Reason: SOB/Wheezing) Qty: 0 0RF hydrocodone-acetaminophen 5-325 mg tablet 1 tab PO Q8H PRN (Reason: Pain) 7 Days Qty: 10 0RF ondansetron 4 mg tablet,disintegrating 4 mg PO Q8H PRN (Reason: nausea and vomiting) Qty: 10 0RF ascorbic acid (vitamin C) 500 mg tablet,chewable 500 mg PO DAILY Qty: 30 0RF atorvastatin 40 mg tablet 40 mg PO DAILY Qty: 30 11RF hydroxyzine HCl 50 mg tablet 50 mg PO BID PRN (Reason: Itching) Qty: 60 2RF ropinirole 2 mg tablet 2 mg PO QHS Qty: 90 1RF Rx Instructions: administer 1-3 hours before bedtime glimepiride 4 mg tablet 4 mg PO DAILY Qty: 60 3RF Label Comments: diabetes; 2100. Rx Instructions: Hold if glucose less than 130 mg/dl donepezil [Aricept] 10 mg tablet 20 mg PO DAILY Qty: 60 2RF pioglitazone 30 mg tablet 30 mg PO DAILY Qty: 90 1RF Primary Care Provider: Carlton Rocha NP Referrals: Carlton Rocha NP, [facility] [Primary Care Provider] - 1 Week Activity Restrictions/Additional Instructions: Follow-up with your primary care provider. Your labs today were basically unremarkable. Tylenol for pain. Disposition Disposition: Home, Self Care
[2022-05-25 07:51] LABS: Bacteria 0 SEEN /hpf (None Seen); Mucous, Urine 0 SEEN /hpf (<or=2+); Red Blood Cells-Urine 0 SEEN /hpf (0-5); White Blood Cells 0 SEEN /hpf (0-5)
[2022-05-25 07:52] LABS: Color, Urine Yellow (Yellow); Glucose, Dipstick 1000 mg/dl (Normal); Ketone-Dipstick Negative (Negative); Leukocyte Esterase-Dipstick Negative /ul (Negative); Nitrite-Dipstick Negative (Negative); Occult Blood-Urine 10 /ul (Negative); Protein-Dipstick Negative (Negative); Urine Bilirubin Dipstick Negative (Negative); Urine Clarity Clear (Clear); Urine Urobilinogen 1 mg/dl (Normal)
[2022-05-25 07:59] LABS: Absolute Lymphocyte Count 0.72 X10^3/uL (0.83-4.51); Absolute Neutrophil Count 3.8 X10^3/uL (2.0-7.7); Basophil# 0.06 X10^3/uL; Basophil% 1.1 % (0-1); Eosinophil# 0.13 X10^3/uL; Eosinophils% 2.3 % (0-5); Hemoglobin 13.8 g/dL (12.0-15.0); Lymphocyte # 0.72 X10^3/ul (0.83-4.51); Lymphocyte % 12.9 % (19-41); Mean Corp Hgb Conc 31.4 g/dL (32-36); Mean Corpuscular Hgb 30.6 pg (27.0-32.0); Mean Corpuscular Volume 97.6 fL (81-99); Mean Platelet Vol. 9.6 fl (6.2-12.0); Monocyte# 0.87 X10^3/uL; Monocyte% 15.6 % (0-10); NRBC Flagged by Analyzer 0 % (0-5); Neutrophil # 3.79 X10^3/uL (2.7-7.7); Neutrophil % 67.7 % (47-70); Platelet Count 148 K/mm3 (150-450); RBC Distribution Width CV 14.2 % (11.6-14.6); RBC Distribution Width SD 51.6 fl (35.1-43.9); Red Blood Count 4.51 M/mm3 (4.2-5.4); White Blood Count 5.6 K/mm3 (4.4-11.0)
--- NOTE | 2022-05-25 08:00 | RAD_ITS ---
EXAM: XR CHEST, 1 VIEW CLINICAL INDICATION: Fall injury and right rib pain. TECHNIQUE: Frontal view of the chest. This report was created using fruux report generation technology. COMPARISON: 04/28/2022. FINDINGS: LUNGS AND PLEURAL SPACES: Unremarkable. No consolidation or edema. No pneumothorax. No effusion. HEART: Unremarkable. Cardiac silhouette not enlarged. MEDIASTINUM: Central airways and mediastinal contour are unremarkable. BONES/JOINTS: Reverse S-shaped scoliosis of the thoracic lumbar spine. SOFT TISSUES: Unremarkable. TUBES, LINES AND DEVICES: Implantable loop recorder device in the left side of the upper abdomen. RAD/Chest 1 View (Portable) IMPRESSION: No acute findings in the chest and unchanged when compared to 04/28/2022. Electronically Signed: Bonifacio Henao MD at 8:12 EST ,
[2022-05-25 08:03] VITALS: BP 135/86; BP 141/76; BP 146/68; PULSE 77; PULSE 88; PULSE 91
[2022-05-25 08:04] LABS: Squamous Epithelial Cells - UA 0-5 SEEN /hpf (5-10)
[2022-05-25] MEDS: Acetaminophen 325 MG Tablet 650 MG PO (08:09)
[2022-05-25 08:13] LABS: Anion Gap 7 (5-15); BUN 16 mg/dL (7-18); BUN/Creat Ratio 21.8 RATIO (10-20); Calcium,Total 10.1 mg/dL (8.5-10.1); Chloride 102 mmol/L (98-107); Creatinine, Serum 0.73 mg/dL (0.55-1.02); EST Glomerular Filtration Rate 84 mL/min (>60); Est Glom Filt Rate - Afr Amer 102 mL/min (>60); Estimated Creatinine Clearance 43.18 ml/min; Glucose 268 mg/dL (74-106); Potassium 3.8 mmol/L (3.5-5.1); Sodium Level 136 mmol/L (136-145)
[2022-05-25] MEDS: guaiFENesin 10 ML UDC (200MG/10ML) PO (09:13)
[2022-05-25 09:14] VITALS: BP 157/76; O2SAT 94
== END 2022-05-25 09:31 | disposition home or self-care (01) ==
PROVIDERS: Emergency Provider Emergency Medicine; PCP Nurse Practitioner Family; Visit Provider Emergency Medicine
DX: I25.2 Old myocardial infarction (principal); G35 Multiple sclerosis; I50.22 Chronic systolic (congestive) heart failure; E11.22 Type 2 diabetes mellitus with diabetic chronic kidney disease; N18.30 Chronic kidney disease, stage 3 unspecified; I25.10 Atherosclerotic heart disease of native coronary artery without angina pectoris; G47.33 Obstructive sleep apnea (adult) (pediatric); F17.210 Nicotine dependence, cigarettes, uncomplicated; E66.9 Obesity, unspecified; Z95.5 Presence of coronary angioplasty implant and graft; Z79.01 Long term (current) use of anticoagulants; W19.XXXA Unspecified fall, initial encounter
CPT/HCPCS: 71045; 80048; 81001; 85025; 93005; 99285; A4216

== ENCOUNTER 2022-05-27 15:22 | Emergency (ER) | payer MEDICARE, MEDICAID, SELFPAY ==
[2016-07-13 11:45] VITALS: BMI 31.4
[2022-05-27 15:23] VITALS: BP 129/72; PULSE 90; RESP 14; TEMP 36.6; O2SAT 94; BMI 28.0
[2022-05-27 17:27] VITALS: BP 113/61; PULSE 78; RESP 20; O2SAT 94
--- NOTE | 2022-05-27 17:37 | EKG12_ITS ---
Test Reason : CP Blood Pressure : / mmHG Vent. Rate : 073 BPM Atrial Rate : 073 BPM P-R Int : 152 ms QRS Dur : 092 ms QT Int : 404 ms P-R-T Axes : 056 -74 081 degrees QTc Int : 445 ms Normal sinus rhythm Left axis deviation Low voltage QRS Inferior infarct (cited on or before 17-AUG-2020) Cannot rule out Anteroseptal infarct (cited on or before 17-AUG-2020) Abnormal ECG Confirmed by DORYS LEMUS MD ([id number]), assistant editor ARABELLA CHRISTIANSON ([id number]) on 05/28/2022 2:05:13 PM Referred By: EDIE Confirmed By:DORYS LEMUS MD
--- NOTE | 2022-05-27 17:47 | EKG12_ITS ---
Test Reason : CP Blood Pressure : / mmHG Vent. Rate : 065 BPM Atrial Rate : 065 BPM P-R Int : 148 ms QRS Dur : 090 ms QT Int : 408 ms P-R-T Axes : 059 -73 080 degrees QTc Int : 424 ms Normal sinus rhythm Possible Left atrial enlargement Left axis deviation Low voltage QRS Septal infarct , age undetermined Inferior infarct , age undetermined Abnormal ECG Confirmed by ALLAN WITT, DORYS ([id number]), technical writer and editor YUNG MUNGUIA ([id number]) on 05/29/2022 10:26:16 AM Referred By: Confirmed By:DORYS LEMUS MD
--- NOTE | 2022-05-27 17:50 | RAD_ITS ---
STUDY: X-RAY CHEST REASON FOR EXAM: Female, 66 years old. chest pain TECHNIQUE: AP portable COMPARISON: May 25, 2022 7:59 AM FINDINGS: The lungs are clear and expanded. There is no demonstrated pleural abnormality. Normal size heart. Normal mediastinum and sara. Normal visualized pulmonary arteries. Tortuous mildly calcified aortic arch and descending thoracic aorta. Dorsal spine demonstrates mild scoliosis and degenerative change. Normal visualized ribs, clavicles, and shoulders. Postop change status post multilevel cervical fusion There is no demonstrated abnormality of the visualized soft tissue structures of the upper abdomen. RAD/Chest 1 View (Portable) IMPRESSION: No acute cardiopulmonary pathology. Electronically Signed: Brant Albarran MD at 18:11 EST ,
[2022-05-27 17:57] LABS: Absolute Lymphocyte Count 1.71 X10^3/uL (0.83-4.51); Absolute Neutrophil Count 2.4 X10^3/uL (2.0-7.7); Basophil# 0.05 X10^3/uL; Hematocrit 46.1 % (37-47); Hemoglobin 14.6 g/dL (12.0-15.0); Lymphocyte # 1.71 X10^3/ul (0.83-4.51); Lymphocyte % 33.9 % (19-41); Mean Corp Hgb Conc 31.7 g/dL (32-36); Mean Corpuscular Hgb 30.6 pg (27.0-32.0); Mean Corpuscular Volume 96.6 fL (81-99); Mean Platelet Vol. 9.6 fl (6.2-12.0); Monocyte# 0.71 X10^3/uL; Monocyte% 14.1 % (0-10); NRBC Flagged by Analyzer 0 % (0-5); Neutrophil # 2.35 X10^3/uL (2.7-7.7); Neutrophil % 46.4 % (47-70); Platelet Count 203 K/mm3 (150-450); RBC Distribution Width CV 13.8 % (11.6-14.6); RBC Distribution Width SD 49.2 fl (35.1-43.9); Red Blood Count 4.77 M/mm3 (4.2-5.4); White Blood Count 5.1 K/mm3 (4.4-11.0)
[2022-05-27 18:05] LABS: Anion Gap 9 (5-15); BUN 17 mg/dL (7-18); BUN/Creat Ratio 25.8 RATIO (10-20); Calcium,Total 10.9 mg/dL (8.5-10.1); Chloride 105 mmol/L (98-107); Creatinine, Serum 0.66 mg/dL (0.55-1.02); EST Glomerular Filtration Rate 95 mL/min (>60); Est Glom Filt Rate - Afr Amer 115 mL/min (>60); Estimated Creatinine Clearance 43.18 ml/min; Glucose 190 mg/dL (74-106); Potassium 3.7 mmol/L (3.5-5.1); Sodium Level 139 mmol/L (136-145); Troponin-I HS 13 pg/mL (3.0-54.0)
--- NOTE | 2022-05-27 18:13 | ED.VIS.CHEST ---
HPI History of Present Illness Chief Complaint: Chest Pain Narrative Narrative: 66-year-old female presenting with episodes of near syncope and chest pain. She states she is currently been ill since Thursday. She has not had a fever at home but does report a cough and yellow production of sputum. She states she was seen here in the emergency room on Thursday. She was ultimately discharged back home. She followed up with her primary care physician who told her to come back to the emergency room today. [facility] Medical History Anemia Anemia Anxiety Anxiety and depression Apical mural thrombus with acute CT Atherosclerotic heart disease of [place] coronary artery without angina pectoris Cataracts, both eyes Cervical spinal stenosis Chronic anticoagulation Chronic back pain Chronic neck pain with history of cervical spinal surgery Chronic systolic (congestive) heart failure CKD (chronic kidney disease) stage 3, GFR 30-59 ml/min Closed right tibial fracture COPD (chronic obstructive pulmonary disease) Diabetes mellitus type 2 in nonobese Essential (primary) hypertension Flank pain Fracture of distal end of right tibia Hematemesis Hiatal hernia History of peptic ulcer disease History of ST elevation myocardial infarction (STEMI) Hyperglycemia due to type 2 diabetes mellitus Hyperkalemia IBS (irritable bowel syndrome) Insomnia Irritable bowel syndrome with diarrhea Ischemic cardiomyopathy Left ventricular hypertrophy Major depression Multiple sclerosis Nicotine abuse Nondisplaced pilon fracture of right tibia, initial encounter for closed fracture BRYAN (obstructive sleep apnea) Osteoporosis Osteoporosis Pain of right lower extremity Paroxysmal atrial fibrillation RLS (restless legs syndrome) Suicidal ideation Tachycardia Takotsubo syndrome Type 2 diabetes mellitus URI (upper respiratory infection) Vitamin B12 deficiency Home Medications modafinil 200 mg tablet 200 mg PO DAILY to stay awake 12/12/19 [History Last Taken 08/14/20 09:00] acetaminophen 500 mg tablet 1,000 mg PO TID PRN pain -02/03 #1 TAB 07/29/20 [Rx Last Taken Unknown] denosumab 60 mg/mL subcutaneous syringe (Prolia) 60 mg subcut [id number] #1 mL 12/25/20 [Rx Last Taken Unknown] vibegron 75 mg tablet 75 mg PO DAILY 07/03/21 [History Last Taken Unknown] ropinirole 1 mg tablet 1 mg PO DAILY restless legs #90 tabs 08/08/21 [Rx Last Taken Unknown] ascorbic acid (vitamin C) 500 mg chewable tablet 500 mg PO DAILY ##30 09/12/21 [Rx Last Taken Unknown] duloxetine 30 mg capsule,delayed release (Cymbalta) 30 mg PO BID mental health #180 caps 09/20/21 [Rx Last Taken Unknown] dicyclomine 20 mg tablet 20 mg PO BID PRN abdominal discomfort #180 tabs 10/10/21 [Rx Last Taken Unknown] atorvastatin 40 mg tablet 40 mg PO DAILY #30 tabs 10/30/21 [Rx Last Taken Unknown] cholecalciferol (vitamin D3) 125 mcg (5,000 unit) capsule 125 mcg PO DAILY 11/05/21 [History Last Taken Unknown] ferrous sulfate 325 mg (65 mg iron) tablet 325 mg PO Q OTHER DAY 11/05/21 [History Last Taken Unknown] albuterol sulfate 2.5 mg/3 mL (0.083 %) solution for nebulization 2.5 mg (3 mL) inhalation Q2H PRN PRN SOB/Wheezing #0 mL 11/20/21 [Rx Last Taken Unknown] hydrocodone-acetaminophen 5-325mg 5mg-325mg 1 tab PO Q8H PRN Pain 7 days #10 tabs 11/20/21 [Rx Last Taken Unknown] furosemide 20 mg tablet 20 mg PO QAM PRN edema #90 tabs 12/24/21 [Rx Last Taken Unknown] loperamide 2 mg tablet (Anti-Diarrheal (loperamide)) 2 mg PO Q6H PRN 12/24/21 [History Last Taken Unknown] potassium chloride 20 mEq tablet,extended release 20 meq PO DAILY PRN take with lasix #90 tabs 12/24/21 [Rx Last Taken Unknown] apixaban 5 mg tablet (Eliquis) 5 mg PO DAILY #180 tabs 01/14/22 [Rx Last Taken Unknown] carvedilol 6.25 mg tablet 6.25 mg PO DAILY dose reduced while in [facility] 01/14/22 [History Last Taken Unknown] isosorbide mononitrate 30 mg tablet,extended release 24 hr 30 mg PO BID 01/14/22 [History Last Taken Unknown] lisinopril 20 mg tablet 20 mg PO DAILY #180 tabs 01/14/22 [Rx Last Taken Unknown] hydroxyzine HCl 50 mg tablet 50 mg PO BID PRN Itching #60 tabs 02/13/22 [Rx Last Taken Unknown] ropinirole 2 mg tablet 2 mg PO QHS #90 tabs 02/27/22 [Rx Last Taken Unknown] glimepiride 4 mg tablet 4 mg PO DAILY BLOOD SUGAR #60 tabs 03/04/22 [Rx Last Taken Unknown] acidophilus 100 million cell-pectin, citrus 10 mg capsule 1 cap PO DAILY supplement #90 caps 04/01/22 [Rx Last Taken Unknown] aspirin 81 mg tablet,delayed release (Adult Aspirin Regimen) 81 mg PO DAILY 04/01/22 [History Last Taken Unknown] dapagliflozin 10 mg tablet (Farxiga) 10 mg PO QAM #90 tabs 04/01/22 [Rx Last Taken Unknown] eluxadoline 100 mg tablet 100 mg PO BID 04/01/22 [History Last Taken Unknown] ofatumumab 20 mg/0.4 mL subcutaneous pen injector (Kesimpta Pen) 20 mg subcut QMONTH 04/01/22 [History Last Taken Unknown] pantoprazole 40 mg tablet,delayed release 40 mg PO DAILY #90 tabs 04/01/22 [Rx Last Taken Unknown] sucralfate 1 gram tablet (Carafate) 1 g PO QAC #90 tabs 04/01/22 [Rx Last Taken Unknown] donepezil 10 mg tablet (Aricept) 20 mg PO DAILY #60 tabs 05/05/22 [Rx Last Taken Unknown] pioglitazone 30 mg tablet 30 mg PO DAILY diabetes #90 tabs 05/05/22 [Rx Last Taken Unknown] quetiapine 25 mg tablet (Seroquel) 25 mg PO QHS #30 tabs 05/12/22 [Rx Last Taken Unknown] ondansetron 4 mg disintegrating tablet 4 mg PO Q8H PRN nausea and vomiting #10 tabs 05/27/22 [Rx Last Taken Unknown] Allergy/AdvReac Type Severity Reaction Status Date / Time indomethacin [From Indocin] Allergy Hives Verified 05/27/22 15:23 indomethacin sodium Allergy Hives Verified 05/27/22 15:23 [From Indocin] iodine Allergy Hives Verified 05/27/22 15:23 propoxyphene napsylate Allergy Out of Verified 05/27/22 15:23 [From Darvocet-N] control aripiprazole [From Abilify] AdvReac Other Verified 05/27/22 15:23 aspirin AdvReac Upset Verified 05/27/22 15:23 Stomach clindamycin AdvReac Nausea Verified 05/27/22 15:23 metformin AdvReac Other Verified 05/27/22 15:23 sumatriptan [From Imitrex] AdvReac Vomiting Verified 05/27/22 15:23 Family History Father Cancer Lung cancer Mother Cancer Pancreatic cancer Surgical History History of amputation of left great toe History of back surgery History of cervical discectomy History of coronary artery stent placement (04/08/16) History of endoscopy History of left heart catheterization (09/25/20) History of left knee surgery History of loop recorder (06/2014) History of tonsillectomy and adenoidectomy Social History household members: none Smoking Status: Current every day smoker tobacco type: cigarettes alcohol intake: never substance use type: does not use caffeine: Yes Type: coffee Number of servings: 1 what type of physical activity do you participate in: none and other details: Physical Therapy ROS ROS ED Review of Systems ROS Unobtainable: Denies due to encephalopathy Constitutional Constitutional ED: Denies chills or fever(s) Eyes Eyes: Denies blurry vision or change in vision ENT ENT ED: Denies rhinorrhea or sore throat Cardiovascular Cardiovascular: Reports as per HPI Gastrointestinal Gastrointestinal: Reports nausea; Denies abdominal pain or vomiting Genitourinary Genitourinary ED: Denies dysuria or hematuria Musculoskeletal Musculoskeletal: Denies arthralgias Integumentary Denies abscess Neurologic Neurologic: Denies headache(s) or paresthesias Psychiatric Psychiatric: Denies anxiety or depression EXAM Physical Exam Const Vital Signs: 05/27/22 15:23 05/27/22 17:27 05/27/22 17:44 Temperature 98 F Temperature Source Temporal Pulse Rate 90 78 Respiratory Rate 14 20 H Blood Pressure 129/72 H 113/61 Blood Pressure Mean 91 78 Pulse Ox 94 94 Oxygen Delivery Method Room Air Room Air Room Air Positive well nourished General Appearance ED: NAD; Negative for pallor HEENT Reports moist mucous membranes normocephalic and atraumatic Eyes PERRL and EOMs intact bilaterally Cardio regular rate GI normal to inspection, nondistended, normoactive bowel sounds and no masses Psych mental status grossly normal Skin General Skin Exam: Negative for jaundice or pallor Heart Score History: Slightly/Non-Suspicious ECG: Normal Age: >/= 65 years Score: 2 MDM MDM MDM Narrative Medical decision making narrative: Patient presenting with chest pain and states she had several episodes of syncope. She is well-appearing. Her vital signs are normal. No signs of trauma. No focal neurologic deficits or lateralizing signs or symptoms. I did obtain an EKG which on my interpretation shows a normal sinus rhythm with a ventricular rate of 73 bpm. Ischemic change or dysrhythmia. Chest x-ray was obtained and shows no acute cardiopulmonary process on my interpretation. Radiologist interprets this and agrees. CBC obtained to evaluate for anemia, white blood cell count, differential. This is essentially normal. BMP to assess for renal function and electrolytes and this is also fairly unremarkable. Her glucose slightly elevated 190 without anion gap. High-sensitivity troponin is 13. She was given Zofran for her nausea. I do not believe she is narcotic pain medication. Patient states that she no longer wants to stay and left the emergency room. I was going to check orthostatic vital signs however the patient is ambulating throughout the ER without any difficulty whatsoever using her walker. I did give her return precautions. Impression: 1. Chest pain 2. Syncope Lab Data Attestation: I reviewed the patient's lab results. Labs: Laboratory Results - last 24 hr 05/27/22 05/27/22 17:30 17:30 WBC 5.1 RBC 4.77 Hgb 14.6 Hct 46.1 MCV 96.6 MCH 30.6 MCHC 31.7 L RDW Std Deviation 49.2 H RDW Coeff of Yeimi 13.8 Plt Count 203 MPV 9.6 Immature Gran % (Auto) 0.600 Neut % (Auto) 46.4 L Lymph % (Auto) 33.9 Rich % (Auto) 14.1 H Eos % (Auto) 4.0 Baso % (Auto) 1.0 Absolute Neuts (auto) 2.4 Absolute Lymphs (auto) 1.71 Nucleated RBC % 0 Sodium 139 Potassium 3.7 Chloride 105 Carbon Dioxide 25.0 Anion Gap 9 BUN 17 Creatinine 0.66 Estim Creat Clear Calc 43.18 Est GFR (MDRD) Af Amer 115 Est GFR (MDRD) Non-Af 95 BUN/Creatinine Ratio 25.8 H Glucose 190 H Calcium 10.9 H Troponin I High Sens 13 Radiography Diagnostic Testing: Clinical Impression(s) from Imaging Studies Chest X-Ray 05/27/22 17:50 IMPRESSION: No acute cardiopulmonary pathology. Electronically Signed: Brant Albarran MD at 18:11 EST , Discharge Plan Triage Chief Complaint: Chest Pain ED Provider: Yosef Lugo Dx/Rx/DC Orders Instructions: ED Chest Pain, Uncertain Cause Prescriptions: No Action Prolia 60 mg/mL syringe 60 mg subcut [id number] Qty: 1 1RF vibegron 75 mg tablet 75 mg PO DAILY ropinirole 1 mg tablet 1 mg PO DAILY Qty: 90 2RF Rx Instructions: 1 mg PO Lunch duloxetine [Cymbalta] 30 mg capsule,delayed release(DR/EC) 30 mg PO BID Qty: 180 2RF dicyclomine 20 mg tablet 20 mg PO BID PRN (Reason: abdominal discomfort) Qty: 180 2RF cholecalciferol (vitamin D3) 125 mcg (5,000 unit) capsule 125 mcg PO DAILY ferrous sulfate 325 mg (65 mg iron) tablet 325 mg PO Q OTHER DAY isosorbide mononitrate 30 mg tablet extended release 24 hr 30 mg PO BID eluxadoline 100 mg tablet 100 mg PO BID loperamide [Anti-Diarrheal (loperamide)] 2 mg tablet 2 mg PO Q6H PRN furosemide 20 mg tablet 20 mg PO QAM PRN (Reason: edema) Qty: 90 1RF potassium chloride 20 mEq tablet extended release 20 meq PO DAILY PRN (Reason: take with lasix) Qty: 90 1RF carvedilol 6.25 mg tablet 6.25 mg PO DAILY Rx Instructions: must administer with a meal/food lisinopril 20 mg tablet 20 mg PO DAILY Qty: 180 2RF Eliquis 5 mg tablet 5 mg PO DAILY Qty: 180 3RF aspirin [Adult Aspirin Regimen] 81 mg tablet,delayed release (DR/EC) 81 mg PO DAILY Kesimpta Pen 20 mg/0.4 mL pen injector 20 mg subcut QMONTH Rx Instructions: begin at Week 4 of therapy acidophilus-pectin, citrus 100 million cell-10 mg capsule 1 cap PO DAILY Qty: 90 3RF sucralfate [Carafate] 1 gram tablet 1 g PO QAC Qty: 90 1RF pantoprazole 40 mg tablet,delayed release (DR/EC) 40 mg PO DAILY Qty: 90 0RF Farxiga 10 mg tablet 10 mg PO QAM Qty: 90 1RF quetiapine [Seroquel] 25 mg tablet 25 mg PO QHS Qty: 30 2RF modafinil 200 MG tablet 200 mg PO DAILY acetaminophen 500 MG tablet 1,000 mg PO TID PRN (Reason: pain -02/03) Qty: 1 0RF Rx Instructions: alternate with ibuprofen albuterol sulfate 2.5 mg /3 mL (0.083 %) Solution For Nebulization 2.5 mg inhalation Q2H PRN PRN (Reason: SOB/Wheezing) Qty: 0 0RF hydrocodone-acetaminophen 5-325 mg tablet 1 tab PO Q8H PRN (Reason: Pain) 7 Days Qty: 10 0RF ascorbic acid (vitamin C) 500 mg tablet,chewable 500 mg PO DAILY Qty: 30 0RF atorvastatin 40 mg tablet 40 mg PO DAILY Qty: 30 11RF hydroxyzine HCl 50 mg tablet 50 mg PO BID PRN (Reason: Itching) Qty: 60 2RF ropinirole 2 mg tablet 2 mg PO QHS Qty: 90 1RF Rx Instructions: administer 1-3 hours before bedtime glimepiride 4 mg tablet 4 mg PO DAILY Qty: 60 3RF Label Comments: diabetes; 2100. Rx Instructions: Hold if glucose less than 130 mg/dl donepezil [Aricept] 10 mg tablet 20 mg PO DAILY Qty: 60 2RF pioglitazone 30 mg tablet 30 mg PO DAILY Qty: 90 1RF ondansetron 4 mg tablet,disintegrating 4 mg PO Q8H PRN (Reason: nausea and vomiting) Qty: 10 0RF Primary Care Provider: Carlton Rocha NP Referrals: Carlton Rocha NP, [facility] [Primary Care Provider] - Disposition Disposition: Home, Self Care Discharge Date/Time: 05/27/22 21:13
[2022-05-27] MEDS: Ondansetron 4 MG/2 ML Vial IV (18:25)
--- NOTE | 2022-05-27 21:11 | ED.RN ---
Pt. requesting to leave without paperwork. Dr. Lugo notified that pt. notified that she would not be receiving any sort of phone call with her results but that she could follow up with her primary care DrEvin or call medical records for her results. PIV removed.
== END 2022-05-27 21:13 | disposition home or self-care (01) ==
PROVIDERS: Emergency Provider Student in an Organized Health Care Education/Training Program; PCP Nurse Practitioner Family; Visit Provider Student in an Organized Health Care Education/Training Program
DX: R07.9 Chest pain, unspecified (principal); J44.9 Chronic obstructive pulmonary disease, unspecified; I50.22 Chronic systolic (congestive) heart failure; I13.0 Hypertensive heart and chronic kidney disease with heart failure and stage 1 through stage 4 chronic kidney disease, or unspecified chronic kidney disease; E11.22 Type 2 diabetes mellitus with diabetic chronic kidney disease; E11.65 Type 2 diabetes mellitus with hyperglycemia; R55 Syncope and collapse; I25.10 Atherosclerotic heart disease of native coronary artery without angina pectoris; I25.2 Old myocardial infarction; F17.210 Nicotine dependence, cigarettes, uncomplicated; Z95.5 Presence of coronary angioplasty implant and graft; Z79.82 Long term (current) use of aspirin; Z79.84 Long term (current) use of oral hypoglycemic drugs; Z79.899 Other long term (current) drug therapy
CPT/HCPCS: 71045; 80048; 84484; 85025; 93005; 96374; 99284; A4216; J2405

== ENCOUNTER 2022-06-06 11:52 | Observation (INO) | payer MEDICARE, MEDICAID, SELFPAY ==
[2016-07-13 11:45] VITALS: BMI 31.4
[2022-06-06 11:53] VITALS: BP 155/74; PULSE 58; RESP 18; TEMP 36.6; O2SAT 98; BMI 28.6
--- NOTE | 2022-06-06 12:20 | RAD_ITS ---
STUDY: X-RAY CHEST REASON FOR EXAM: Female, 66 years old. Cough TECHNIQUE: PA and lateral views of the chest. COMPARISON: Comparison is made with prior study dated 05/27/2022. FINDINGS: EKG electrode are seen. Stable elevation of the right hemidiaphragm. There is no demonstrated pleural abnormality. Normal size heart. A loop recording device is seen overlying the medial left hemithorax Normal mediastinum and sara. Normal visualized pulmonary arteries. There is atherosclerotic tortuosity of the aortic arch and descending thoracic aorta. There are diffuse degenerative changes of the visualized thoracic spine. Increased kyphosis. Loss of height of lower dorsal vertebrae. Levoscoliosis. Prior laminectomy and fusion of the lower cervical spine. There is no demonstrated abnormality of the visualized soft tissue structures of the upper abdomen. RAD/Chest PA and Lateral IMPRESSION: Stable elevation of the right hemidiaphragm. No acute abnormality is seen. Electronically Signed: Daljit Jordan MD at 12:55 EST ,
--- NOTE | 2022-06-06 12:20 | CT_ITS ---
STUDY: CT BRAIN WITHOUT CONTRAST REASON FOR EXAM: Female, 66 years old. Head injury RADIATION DOSAGE (If Supplied By Facility): CTDIvol = ( 44.99 ) mGy, DLP = ( 829.85 ) mGycm TECHNIQUE: Transaxial CT imaging of the brain was performed without administration of intravenous contrast material. Individualized dose optimization techniques were used for this CT. COMPARISON: Comparison is made with prior examination dated 02/07/2022. FINDINGS: Normal soft tissue structures. Normal calvarium. There is mild cerebral atrophy with widening of the extra-axial spaces and ventricular dilatation. There are areas of decreased attenuation within the white matter tracts of the supratentorial brain, consistent with microvascular disease changes. Normal basal ganglia and thalami. Normal brainstem. Normal cerebellum. There is no intracranial hemorrhage. There are no findings of an acute ischemic infarction. Atherosclerotic calcification of the cavernous portions of the internal carotid arteries bilaterally. Normal visualized paranasal sinuses. CT/Brain/Head without Contrast IMPRESSION: Chronic involutional changes of the brain. Electronically Signed: Daljit Jordan MD at 13:11 EST ,
--- NOTE | 2022-06-06 12:20 | CT_ITS ---
STUDY: CT CERVICAL SPINE WITHOUT CONTRAST REASON FOR EXAM: Female, 66 years old. Polytrauma RADIATION DOSAGE (If Supplied By Facility): CTDIvol = ( 21.38 ) mGy, DLP = ( 417.76 ) mGycm TECHNIQUE: High resolution transaxial imaging was performed without contrast material. Sagittal and coronal images were reconstructed. Individualized dose optimization techniques were used for this CT. COMPARISON: Comparison is made with prior examination dated 01/17/2017. FINDINGS: Normal craniovertebral junction. There are degenerative changes of the anterior atlantoaxial articulation. Normal odontoid process. Normal cervical lordosis. The patient is status post laminectomy and fusion at the C4-C5, C5-6 and C6-C7 levels. C2-3: Normal endplates. Normal disc height and morphology. Normal central canal and intervertebral neuroforamina. C3-4: Normal endplates. Normal disc height and morphology. Normal central canal and intervertebral neuroforamina. C4-5: The patient is status post laminectomy with screw and mahendra fixation. C5-6: Marked degree of disc space narrowing and spondylosis. Bilateral laminectomy and interpeduncular screw and mahendra fixation. Uncovertebral arthrosis. Mild degree of bilateral neural foraminal stenosis is worse on the right side. C6-7: Marked degree of disc space narrowing. Spondylosis. Uncovertebral arthrosis. Mild degree of bilateral neural foraminal stenosis. C7-T1: Normal endplates. Normal disc height and morphology. Normal central canal and intervertebral neuroforamina. Mucosal thickening of the sphenoid sinus. CT/Spine Cervical without Contras IMPRESSION: Multilevel degenerative changes, as described above. Status post laminectomy and fusion at the C4-C5 and C5-C6 level. Electronically Signed: Daljit Jordan MD at 13:15 EST ,
--- NOTE | 2022-06-06 12:22 | CM.ED ---
Addendum entered by Mary Griggs 06/06/22 15:07: PRAVIN called Priya at [facility]. Priya said that patient's PCP will not sign the MD orders and her health information administrator has even called him and stated that they need the orders and he won't do the orders. Priya said that the PASSR is done. They will need precert for patient. Priya said that if she gets PT/OT today she can start precert today and hopefully have it back on Thursday. PRAVIN spoke to Carlton Rocha and he said that he is willing to do the orders for SNF but had thought that needs to be done by the hospital staff. ordered PT/OT for evaluation of patient. Mary REYES Original Note: PRAVIN called [facility] and left message for Jeremias who called back and voiced she is not there anymore and then PRAVIN left voice mail for admission staff at [facility]. PRAVIN met with patient. Patient said that she has been falling this week. Patient said that it is all set up to go to [facility] they just needed Carlton Rocha's office to sign off on it and he had not done it yet, per patient. Patient said that she has fallen this week multiple times. Patient has been going to [employer] and reports she enjoys that alot. PRAVIN will continue to follow. Mary REYES
--- NOTE | 2022-06-06 12:47 | ED.VIS.FALL ---
HPI HPI - Fall History of Present Illness Chief Complaint: Fall Informant: patient and EMS Narrative Narrative: Brought in by EMS for a mechanical fall and head injury. Patient on Eliquis for history of thrombus in her heart. She is followed by Dr. Butler. She states she ambulates baseline with a walker she has history of MS with monthly infusions. She has had multiple falls recently. She has been trying to get into [facility] rehab has been in communication with them was told she needs medical clearance. She lives by herself. She denies neck back chest abdominal pain or any extremity pain with her falls. now reports headache. No nausea or vomiting. [facility] Medical History Anemia Anemia Anxiety Anxiety and depression Apical mural thrombus with acute NE Atherosclerotic heart disease of [place] coronary artery without angina pectoris Cataracts, both eyes Cervical spinal stenosis Chronic anticoagulation Chronic back pain Chronic neck pain with history of cervical spinal surgery Chronic systolic (congestive) heart failure CKD (chronic kidney disease) stage 3, GFR 30-59 ml/min Closed right tibial fracture COPD (chronic obstructive pulmonary disease) Diabetes mellitus type 2 in nonobese Essential (primary) hypertension Flank pain Fracture of distal end of right tibia Hematemesis Hiatal hernia History of peptic ulcer disease History of ST elevation myocardial infarction (STEMI) Hyperglycemia due to type 2 diabetes mellitus Hyperkalemia IBS (irritable bowel syndrome) Insomnia Irritable bowel syndrome with diarrhea Ischemic cardiomyopathy Left ventricular hypertrophy Major depression Multiple sclerosis Nicotine abuse Nondisplaced pilon fracture of right tibia, initial encounter for closed fracture BRYAN (obstructive sleep apnea) Osteoporosis Osteoporosis Pain of right lower extremity Paroxysmal atrial fibrillation RLS (restless legs syndrome) Suicidal ideation Tachycardia Takotsubo syndrome Type 2 diabetes mellitus URI (upper respiratory infection) Vitamin B12 deficiency Home Medications modafinil 200 mg tablet 200 mg PO DAILY to stay awake 12/12/19 [History Last Taken 06/06/22] acetaminophen 500 mg tablet 1,000 mg PO TID PRN pain -02/03 #1 TAB 07/29/20 [Rx Last Taken 06/06/22] vibegron 75 mg tablet 75 mg PO QHS bladder 07/03/21 [History Last Taken 06/05/22] ropinirole 1 mg tablet 1 mg PO DAILY restless legs #90 tabs 08/08/21 [Rx Last Taken 06/06/22] duloxetine 30 mg capsule,delayed release (Cymbalta) 30 mg PO BID mental health #180 caps 09/20/21 [Rx Last Taken 06/06/22] dicyclomine 20 mg tablet 20 mg PO BID PRN abdominal discomfort #180 tabs 10/10/21 [Rx Last Taken 3 Days Ago ~06/03/22] cholecalciferol (vitamin D3) 125 mcg (5,000 unit) capsule 125 mcg PO DAILY supplement 11/05/21 [History Last Taken 06/06/22] ferrous sulfate 325 mg (65 mg iron) tablet 325 mg PO DAILY supplement 11/05/21 [History Last Taken 06/05/22] hydrocodone-acetaminophen 5-325mg 5mg-325mg 1 tab PO Q8H PRN Pain 7 days #10 tabs 11/20/21 [Rx Last Taken 06/06/22] furosemide 20 mg tablet 20 mg PO QAM PRN edema #90 tabs 12/24/21 [Rx Last Taken Unknown] loperamide 2 mg tablet (Anti-Diarrheal (loperamide)) 2 mg PO Q6H PRN Diarrhea 12/24/21 [History Last Taken Unknown] potassium chloride 20 mEq tablet,extended release 20 meq PO DAILY PRN take with lasix #90 tabs 12/24/21 [Rx Last Taken Unknown] carvedilol 6.25 mg tablet 6.25 mg PO BID dose reduced while in [facility] 01/14/22 [History Last Taken 06/06/22] isosorbide mononitrate 30 mg tablet,extended release 24 hr 30 mg PO BID heart 01/14/22 [History Last Taken 06/06/22] glimepiride 4 mg tablet 4 mg PO DAILY BLOOD SUGAR #60 tabs 03/04/22 [Rx Last Taken 06/05/22] acidophilus 100 million cell-pectin, citrus 10 mg capsule 1 cap PO DAILY supplement #90 caps 04/01/22 [Rx Last Taken 06/06/22] aspirin 81 mg tablet,delayed release (Adult Aspirin Regimen) 81 mg PO DAILY heart health 04/01/22 [History Last Taken 06/06/22] eluxadoline 100 mg tablet 100 mg PO BID IBS 04/01/22 [History Last Taken 06/06/22] ofatumumab 20 mg/0.4 mL subcutaneous pen injector (Kesimpta Pen) 20 mg subcut QMONTH MS 04/01/22 [History Last Taken 05/06/22] pioglitazone 30 mg tablet 30 mg PO DAILY diabetes #90 tabs 05/05/22 [Rx Last Taken 06/05/22] benzonatate 100 mg capsule 100 mg PO TID PRN cough #30 caps 05/28/22 [Rx Last Taken 06/05/22] albuterol sulfate 2.5 mg/3 mL (0.083 %) solution for nebulization 2.5 mg (3 mL) inhalation Q6H PRN SOB/Wheezing #180 mL 05/29/22 [Rx Last Taken 06/06/22] hydroxyzine HCl 50 mg tablet 50 mg PO BID PRN Itching #60 tabs 05/29/22 [Rx Last Taken 06/06/22] nebulizers #1 ea 05/29/22 [Rx Last Taken Unknown] ondansetron 4 mg disintegrating tablet 4 mg PO Q8H PRN nausea and vomiting #15 tabs 06/02/22 [Rx Last Taken 06/06/22] apixaban 5 mg tablet (Eliquis) 5 mg PO DAILY blood thinner 06/06/22 [History Last Taken 06/06/22] ascorbic acid (vitamin C) 500 mg chewable tablet 500 mg PO DAILY supplement 06/06/22 [History Last Taken 06/06/22] atorvastatin 40 mg tablet 40 mg PO QHS cholesterol 06/06/22 [History Last Taken 06/05/22] dapagliflozin 10 mg tablet (Farxiga) 10 mg PO QAM DM 06/06/22 [History Last Taken 06/06/22] denosumab 60 mg/mL subcutaneous syringe (Prolia) 60 mg subcut [id number] bone health 06/06/22 [History Last Taken Unknown] donepezil 10 mg tablet (Aricept) 20 mg PO DAILY dementia 06/06/22 [History Last Taken 06/06/22] lisinopril 20 mg tablet 20 mg PO BID bp 06/06/22 [History Last Taken 06/06/22] pantoprazole 40 mg tablet,delayed release 40 mg PO DAILY gerd 06/06/22 [History Last Taken 06/06/22] quetiapine 25 mg tablet (Seroquel) 25 mg PO QHS mood 06/06/22 [History Last Taken 06/05/22] ropinirole 2 mg tablet 2 mg PO QHS restless leg 06/06/22 [History Last Taken 06/05/22] sucralfate 1 gram tablet (Carafate) 1 g PO QAC bowel 06/06/22 [History Last Taken 06/06/22] Allergy/AdvReac Type Severity Reaction Status Date / Time indomethacin [From Indocin] Allergy Hives Verified 05/27/22 15:23 indomethacin sodium Allergy Hives Verified 05/27/22 15:23 [From Indocin] iodine Allergy Hives Verified 05/27/22 15:23 propoxyphene napsylate Allergy Out of Verified 05/27/22 15:23 [From Darvocet-N] control aripiprazole [From Abilify] AdvReac Other Verified 05/27/22 15:23 aspirin AdvReac Upset Verified 05/27/22 15:23 Stomach clindamycin AdvReac Nausea Verified 05/27/22 15:23 metformin AdvReac Other Verified 05/27/22 15:23 sumatriptan [From Imitrex] AdvReac Vomiting Verified 05/27/22 15:23 Family History Father Cancer Lung cancer Mother Cancer Pancreatic cancer Surgical History History of amputation of left great toe History of back surgery History of cervical discectomy History of coronary artery stent placement (04/08/16) History of endoscopy History of left heart catheterization (09/25/20) History of left knee surgery History of loop recorder (06/2014) History of tonsillectomy and adenoidectomy Social History household members: none Smoking Status: Current every day smoker tobacco type: cigarettes alcohol intake: never substance use type: does not use caffeine: Yes Type: coffee Number of servings: 1 what type of physical activity do you participate in: none and other details: Physical Therapy ROS ROS ED Constitutional Constitutional ED: Denies chills, fever(s) or sweats Eyes Eyes: Denies change in vision ENT ENT ED: Denies dysphagia or sore throat Cardiovascular Cardiovascular: Denies chest pain, leg edema, palpitations or racing heartbeat Respiratory/Chest Respiratory/Chest: Denies cough, dyspnea or dyspnea on exertion Gastrointestinal Gastrointestinal: Denies abdominal pain, diarrhea, nausea or vomiting Genitourinary Genitourinary ED: Denies dysuria, hematuria or urinary frequency Musculoskeletal Musculoskeletal: Denies back pain, extremity pain or neck pain Integumentary Denies rash or wounds Neurologic Neurologic: Reports headache(s); Denies paresthesias or weakness EXAM Physical Exam Const Vital Signs: 06/06/22 11:53 06/06/22 12:09 Temperature 97.9 F Temperature Source Temporal Pulse Rate 58 L Respiratory Rate 18 Respiratory Effort Normal Blood Pressure 155/74 H Blood Pressure Mean 101 Pulse Ox 98 Oxygen Delivery Method Room Air Room Air Positive well nourished and well developed Constitutional Narrative: GCS 15 General Appearance ED: well developed and NAD HEENT Reports TM's clear and moist mucous membranes HEENT Narrative: Tender palpation right parietal scalp, no laceration no hematoma no depressions normocephalic and atraumatic Tympanic Membrane ED: Yes TM's clear Eyes PERRL, EOMs intact bilaterally and conjunctivae normal General Eye ED: Yes normal appearance of both eyes Neck full ROM, no lymphadenopathy and supple Neck Narrative: No step-offs. General: Negative for tenderness Chest Wall inspection of chest normal and palpation of chest normal Chest: Negative for tenderness Resp normal respiratory effort and normal air movement Effort and Inspection: symmetric chest movement; Negative for respiratory distress Cardio regular rate, regular rhythm and no murmurs Peripheral Pulses: pulses 2+ throughout GI normal to inspection, nondistended, normoactive bowel sounds and non-tender Palpation: Negative for guarding or rebound tenderness present Back/Spine no CVA tenderness and no thoracic nor lumbar tenderness Back/Spine Narrative: Note resting or lumbar tenderness no step-offs. Extremity normal to inspection Extremity Narrative: Negative logroll bilateral lower extremities. Full range of motion x4. General Extremety ED: Negative for edema or tenderness General Extremity: Negative for edema Neuro oriented x3, CN's II-XII intact bilaterally and no sensory deficits noted Sensorium / Orientation: awake and alert Skin no rashes or lesions noted and no wounds MDM MDM MDM Narrative Medical decision making narrative: Interventions / MDM: Differential diagnosis: Head injury, concussion, intracranial hemorrhage, pneumonia Diagnosis considered but do not suspect: N/A My EKG interpretation: N/A Imaging independently reviewed and interpreted by myself: CT head and cervical spine no acute process also read by radiology. 2 view chest x-ray negative for pneumonia. External documents reviewed: N/A Test considered but not ordered:N/A ED course: Patient mechanical fall head injury. Trauma scans head and neck negative. She treated with Tylenol. With her cough is chronic two-view chest obtained negative. Patient with multiple falls, she has been working with [facility], they were waiting for medical clearance from her primary care physician. I had case management involved, who evaluated the patient. She spoke with the facility. They are waiting for concrete clearance by her PCP. She needed physical therapy evaluation. I did have this ordered. I spoke with her PCP Dr. Rocha who agrees she does need extended care facility with her medical history of MS and multiple falls. She lives alone. He is unaware that this potentially can be done as an outpatient. However upon physical therapy evaluation they recommended long term placement due to her multiple falls. Per case management with the recommendations, she should not be sent home as she is high risk for recurrent falls. I did order baseline labs, history of CKD. We discussed with hospitalist service for admission. Discussed with Dr. Cameron for admission. Re-evaluation: stable Disposition discussed with patient/family/significant other: Patient, PCP, Dr. Rocha Case discussed with consulting clinician: hospitalist, Dr. Cameron Lab Data Attestation: I reviewed the patient's lab results. Labs: Laboratory Results - last 24 hr 06/06/22 06/06/22 15:30 15:30 WBC 6.4 RBC 4.11 L Hgb 12.9 Hct 39.8 MCV 96.8 MCH 31.4 MCHC 32.4 RDW Std Deviation 47.9 H RDW Coeff of Yeimi 13.5 Plt Count 248 MPV 9.6 Immature Gran % (Auto) 0.500 Neut % (Auto) 63.9 Lymph % (Auto) 21.3 Burke % (Auto) 8.0 Eos % (Auto) 5.0 Baso % (Auto) 1.3 H Absolute Neuts (auto) 4.1 Absolute Lymphs (auto) 1.36 Nucleated RBC % 0 Sodium 140 Potassium 4.0 Chloride 110 H Carbon Dioxide 23.0 Anion Gap 7 BUN 18 Creatinine 0.84 Estim Creat Clear Calc 58.48 Est GFR (MDRD) Af Amer 87 Est GFR (MDRD) Non-Af 72 BUN/Creatinine Ratio 21.5 H Glucose 244 H Calcium 9.2 Radiography Diagnostic Testing: Clinical Impression(s) from Imaging Studies Brain CT 06/06/22 12:20 IMPRESSION: Chronic involutional changes of the brain. Electronically Signed: Daljit Jordan MD at 13:11 EST , ADDENDUM: 06/06/22 1319 IMPRESSION: undefined Cervical Spine CT 06/06/22 12:20 IMPRESSION: Multilevel degenerative changes, as described above. Status post laminectomy and fusion at the C4-C5 and C5-C6 level. Electronically Signed: Daljit Jordan MD at 13:15 EST , Chest X-Ray 06/06/22 12:20 IMPRESSION: Stable elevation of the right hemidiaphragm. No acute abnormality is seen. 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
[2022-06-06] MEDS: Acetaminophen 500 MG Tablet 1000 MG PO (13:39)
--- NOTE | 2022-06-06 15:26 | CM.ED ---
Addendum entered by Mary Griggs 06/06/22 18:11: Patient declined list of other SNF as she had planned to go to [facility], as she had been there in the past. Mary REYES Addendum entered by Mary Griggs 06/06/22 15:47: Patient came to the ED with plans to go to [facility]. SW provided patient with [facility] List however it only listed [facility] as patient is working on placement at [facility]. SW made referral to [facility] via [facility]. PRAVIN updated MD Rocha that the plan is to admit patient. PRAVIN spoke to Priya at [facility]. She will open [facility] referral. Patient needs precert as patient wants to go SNF with plan to return home. Priya said that she will do referral today for precert and hoping it comes back on Thursday or Thursday. [facility] Per [facility] PASSR is done Mary REYES Original Note: Abhay Knott RN PT is recommending SNF for patient. Plan is to admit patient. Mary REYES
--- NOTE | 2022-06-06 15:47 | PCM.HP.STD ---
HPI - General General Date of Admission: 06/06/22 Date of Service: 06/06/22 Chief Complaint: FTT, Falls HPI Narrative The patient is a 66 y/o F w/ PMHx: Hx VTE, Chronic normocytic anemia, Obesity, Chronic COPD w/ ongoing tobacco use, HTN, HLD, Hx mural thrombus w/ Acute [place] STEMI/CAD w/ stress test 08/2020 negative and follow-up 09/2020 catheterization with patent stents, Takotsubo syndrome/Ischemic Cardiomyopathy, IBS with diarrhea, Diabetes mellitus type II, Anxiety and Depression, Multiple Sclerosis, BRYAN, PAF, RLS, Chronic back pain/DDD who presents to the [facility] ED on 06/06/22 with history of mechanical fall unfortunately hitting her head with no LOC at that time with reportedly several recent falls normal using her walker with history of MS with monthly injections but seems to be worsening with outpatient attempts to transition to [facility] rehab but unfortunately she has been unable to transition as they noted she needed medical clearance prompting transition to the ED for evaluation. Patient lives by herself. She denies any acute pain from her recent fall aside from global headache. Patient does also report recent increased cough with mild yellow sputum production with no recent fevers or chills. Work-up in the ED included T97.9, heart rate 58, BP 155/74, respiratory rate 18, 98% on room air, chest x-ray with stable elevation of the right hemidiaphragm with no acute cardiopulmonary findings, CT brain with mucosal thickening of the sphenoid sinus otherwise only noted chronic involutional changes, CT cervical spine with multilevel degenerative changes with status post laminectomy and fusion noted C4-C5 and C5-C6 level, CBC with WC 6.4, hemoglobin 12.9, platelet 248. In the ED patient ministered Tylenol 1000 mg p.o. x1. Unfortunately, the ED patient was unable to be placed and required admission for physical therapy and Occupational Therapy evaluation for transition to skilled. [facility] Medical History (Updated 06/06/22 @ 18:[address] Shannan Cameron MD) Anemia Anxiety and depression Apical mural thrombus with acute [place] Atherosclerotic heart disease of [place] coronary artery without angina pectoris Cataracts, both eyes Cervical spinal stenosis Chronic neck pain with history of cervical spinal surgery Chronic systolic (congestive) heart failure CKD (chronic kidney disease) stage 3, GFR 30-59 ml/min COPD (chronic obstructive pulmonary disease) Diabetes mellitus type 2 in nonobese Essential (primary) hypertension Hiatal hernia History of peptic ulcer disease History of ST elevation myocardial infarction (STEMI) IBS (irritable bowel syndrome) Insomnia Irritable bowel syndrome with diarrhea Ischemic cardiomyopathy Left ventricular hypertrophy Multiple sclerosis Nicotine abuse BRYAN (obstructive sleep apnea) Osteoporosis Paroxysmal atrial fibrillation RLS (restless legs syndrome) Takotsubo syndrome Type 2 diabetes mellitus Vitamin B12 deficiency Home Medications modafinil 200 mg tablet 200 mg PO DAILY to stay awake 12/12/19 [History Last Taken 06/06/22] acetaminophen 500 mg tablet 1,000 mg PO TID PRN pain -02/03 #1 TAB 07/29/20 [Rx Last Taken 06/06/22] vibegron 75 mg tablet 75 mg PO QHS bladder 07/03/21 [History Last Taken 06/05/22] ropinirole 1 mg tablet 1 mg PO DAILY restless legs #90 tabs 08/08/21 [Rx Last Taken 06/06/22] duloxetine 30 mg capsule,delayed release (Cymbalta) 30 mg PO BID mental health #180 caps 09/20/21 [Rx Last Taken 06/06/22] dicyclomine 20 mg tablet 20 mg PO BID PRN abdominal discomfort #180 tabs 10/10/21 [Rx Last Taken 3 Days Ago ~06/03/22] cholecalciferol (vitamin D3) 125 mcg (5,000 unit) capsule 125 mcg PO DAILY supplement 11/05/21 [History Last Taken 06/06/22] ferrous sulfate 325 mg (65 mg iron) tablet 325 mg PO DAILY supplement 11/05/21 [History Last Taken 06/05/22] hydrocodone-acetaminophen 5-325mg 5mg-325mg 1 tab PO Q8H PRN Pain 7 days #10 tabs 11/20/21 [Rx Last Taken 06/06/22] furosemide 20 mg tablet 20 mg PO QAM PRN edema #90 tabs 12/24/21 [Rx Last Taken Unknown] loperamide 2 mg tablet (Anti-Diarrheal (loperamide)) 2 mg PO Q6H PRN Diarrhea 12/24/21 [History Last Taken Unknown] potassium chloride 20 mEq tablet,extended release 20 meq PO DAILY PRN take with lasix #90 tabs 12/24/21 [Rx Last Taken Unknown] carvedilol 6.25 mg tablet 6.25 mg PO BID dose reduced while in [facility] 01/14/22 [History Last Taken 06/06/22] isosorbide mononitrate 30 mg tablet,extended release 24 hr 30 mg PO BID heart 01/14/22 [History Last Taken 06/06/22] glimepiride 4 mg tablet 4 mg PO DAILY BLOOD SUGAR #60 tabs 03/04/22 [Rx Last Taken 06/05/22] acidophilus 100 million cell-pectin, citrus 10 mg capsule 1 cap PO DAILY supplement #90 caps 04/01/22 [Rx Last Taken 06/06/22] aspirin 81 mg tablet,delayed release (Adult Aspirin Regimen) 81 mg PO DAILY heart health 04/01/22 [History Last Taken 06/06/22] eluxadoline 100 mg tablet 100 mg PO BID IBS 04/01/22 [History Last Taken 06/06/22] ofatumumab 20 mg/0.4 mL subcutaneous pen injector (Kesimpta Pen) 20 mg subcut QMONTH MS 04/01/22 [History Last Taken 05/06/22] pioglitazone 30 mg tablet 30 mg PO DAILY diabetes #90 tabs 05/05/22 [Rx Last Taken 06/05/22] benzonatate 100 mg capsule 100 mg PO TID PRN cough #30 caps 05/28/22 [Rx Last Taken 06/05/22] albuterol sulfate 2.5 mg/3 mL (0.083 %) solution for nebulization 2.5 mg (3 mL) inhalation Q6H PRN SOB/Wheezing #180 mL 05/29/22 [Rx Last Taken 06/06/22] hydroxyzine HCl 50 mg tablet 50 mg PO BID PRN Itching #60 tabs 05/29/22 [Rx Last Taken 06/06/22] nebulizers #1 ea 05/29/22 [Rx Last Taken Unknown] ondansetron 4 mg disintegrating tablet 4 mg PO Q8H PRN nausea and vomiting #15 tabs 06/02/22 [Rx Last Taken 06/06/22] apixaban 5 mg tablet (Eliquis) 5 mg PO DAILY blood thinner 06/06/22 [History Last Taken 06/06/22] ascorbic acid (vitamin C) 500 mg chewable tablet 500 mg PO DAILY supplement 06/06/22 [History Last Taken 06/06/22] atorvastatin 40 mg tablet 40 mg PO QHS cholesterol 06/06/22 [History Last Taken 06/05/22] dapagliflozin 10 mg tablet (Farxiga) 10 mg PO QAM DM 06/06/22 [History Last Taken 06/06/22] denosumab 60 mg/mL subcutaneous syringe (Prolia) 60 mg subcut [id number] bone health 06/06/22 [History Last Taken Unknown] donepezil 10 mg tablet (Aricept) 20 mg PO DAILY dementia 06/06/22 [History Last Taken 06/06/22] lisinopril 20 mg tablet 20 mg PO BID bp 06/06/22 [History Last Taken 06/06/22] pantoprazole 40 mg tablet,delayed release 40 mg PO DAILY gerd 06/06/22 [History Last Taken 06/06/22] quetiapine 25 mg tablet (Seroquel) 25 mg PO QHS mood 06/06/22 [History Last Taken 06/05/22] ropinirole 2 mg tablet 2 mg PO QHS restless leg 06/06/22 [History Last Taken 06/05/22] sucralfate 1 gram tablet (Carafate) 1 g PO QAC bowel 06/06/22 [History Last Taken 06/06/22] Allergy/AdvReac Type Severity Reaction Status Date / Time indomethacin [From Indocin] Allergy Hives Verified 05/27/22 15:23 indomethacin sodium Allergy Hives Verified 05/27/22 15:23 [From Indocin] iodine Allergy Hives Verified 05/27/22 15:23 propoxyphene napsylate Allergy Out of Verified 05/27/22 15:23 [From Darvocet-N] control aripiprazole [From Abilify] AdvReac Other Verified 05/27/22 15:23 aspirin AdvReac Upset Verified 05/27/22 15:23 Stomach clindamycin AdvReac Nausea Verified 05/27/22 15:23 metformin AdvReac Other Verified 05/27/22 15:23 sumatriptan [From Imitrex] AdvReac Vomiting Verified 05/27/22 15:23 Family History Father Cancer Lung cancer Mother Cancer Pancreatic cancer Surgical History History of amputation of left great toe History of back surgery History of cervical discectomy History of coronary artery stent placement (04/08/16) History of endoscopy History of left heart catheterization (09/25/20) History of left knee surgery History of loop recorder (06/2014) History of tonsillectomy and adenoidectomy Social History household members: none Smoking Status: Current every day smoker tobacco type: cigarettes alcohol intake: never substance use type: does not use caffeine: Yes Type: coffee Number of servings: 1 what type of physical activity do you participate in: none and other details: Physical Therapy ROS ROS Narrative Admission Review of Systems: CONSTITUTIONAL: No weight loss, fever, chills, + weakness or fatigue. HEENT: + Headache. Eyes: No visual loss, blurred vision, double vision or yellow sclerae. Ears, Nose, Throat: No hearing loss, sneezing, congestion, runny nose or sore throat. SKIN: + chronic picking with facial picked regions/staged ecchymoses given recent falls. CARDIOVASCULAR: + Chronic chest pain with no complaints upon current presentation, No palpitations, edema, orthopnea, syncopal events. RESPIRATORY: + Occasional shortness of breath, cough with increased yellow productive sputum, occasional wheezing, No hemoptysis. GASTROINTESTINAL: + No nausea, emesis, diarrhea, abdominal pain, melena, BRBPR. GENITOURINARY: No dysuria, frequency, urgency or retention. NEUROLOGICAL: + Significant debility/weakness with underlying multiple sclerosis, headache. No dizziness, syncope, paralysis, ataxia, numbness or tingling in the extremities, change in bowel or bladder control, seizure. MUSCULOSKELETAL:+ muscle, back pain, joint pain or stiffness. HEMATOLOGIC: + easy bleeding or bruising. LYMPHATICS: No enlarged nodes. No history of splenectomy. PSYCHIATRIC:+ history of depression or anxiety. ENDOCRINOLOGIC: No reports of sweating, cold or heat intolerance. No polyuria or polydipsia. ALLERGIES: history of hives. Vital Signs Vital Signs Vital Signs: 06/06/22 11:53 06/06/22 12:09 Temperature 97.9 F Temperature Source Temporal Pulse Rate 58 L Respiratory Rate 18 Respiratory Effort Normal Blood Pressure 155/74 H Blood Pressure Mean 101 Pulse Ox 98 Oxygen Delivery Method Room Air Room Air Weight Weight: 171 lb 15.369 oz Body Mass Index (BMI) 28.6 Physical Exam Narrative Physical Examination: General: awake, alert, oriented x 3 and cooperative, seated upright in the ED bed in no apparent distress, fatigued appearing, recent serial falls. Skin: normal color, normal turgor, no icterus, no cyanosis except for various pink regions especially on the face and upper extremities,. HEENT: AT/NC, EOMI, PERRLA, my dry eye MM, no carotid bruits or JVD noted. Lungs: Diminished, greater bases, moderate effort, no rales, ronchi or wheezing. Heart: Regular rate and rhythm; no gallop, rub audible. Abdomen: soft, obese, NTTP, ND, distant normal BS, no obvious evidence of HSM. Extremities: no cyanosis, clubbing, or edema. Neurological: patient awake, alert, oriented as noted, cognitive function intact; pupils equally reactive to light and accommodation, cranial nerves II-XII grossly normal, moving all 4 extremities, no focal deficits, strength moderately to severely globally decreased with recent serial falls. Psychiatric: affect appears mildly fatigued otherwise normal, no acute evidence of depressive or anxiety feelings. Results Lab / Micro Data Result Diagrams: 06/06/22 15:30 06/06/22 15:[address] 06/06/22 12:20 IMPRESSION: Chronic involutional changes of the brain. Electronically Signed: Daljit Jordan MD at 13:11 EST , ADDENDUM: 06/06/22 1319 IMPRESSION: undefined Cervical Spine CT 06/06/22 12:20 IMPRESSION: Multilevel degenerative changes, as described above. Status post laminectomy and fusion at the C4-C5 and C5-C6 level. Electronically Signed: Daljit Jordan MD at 13:15 EST , Chest X-Ray 06/06/22 12:20 IMPRESSION: Stable elevation of the right hemidiaphragm. No acute abnormality is seen. Electronically Signed: Daljit Jordan MD at 12:55 EST , Assessment & Plan Assessment/Plan (1) Multiple falls: (2) Debility: PLAN: Plan The patient is a 66 y/o F w/ PMHx: Hx VTE, Chronic normocytic anemia, Obesity, Chronic COPD w/ ongoing tobacco use, HTN, HLD, Hx mural thrombus w/ Acute [place] STEMI/CAD w/ stress test 08/2020 negative and follow-up 09/2020 catheterization with patent stents, Takotsubo syndrome/Ischemic Cardiomyopathy, IBS with diarrhea, Diabetes mellitus type II, Anxiety and Depression, Multiple Sclerosis, BRYAN, PAF, RLS, Chronic back pain/DDD who presents to the [facility] ED on 06/06/22 with history of mechanical fall unfortunately hitting her head with no LOC at that time with reportedly several recent falls normal using her walker with history of MS with monthly injections but seems to be worsening with outpatient attempts to [facility] but unfortunately she has been unable to transition as they noted she needed medical clearance prompting transition to the ED for evaluation. #1. Adult FTT with serial Mechanical falls with significant underlying comorbidities complicated by multiple sclerosis with mild cognitive impairment: We will admit to medical surgical floor, maintain on fall and aspiration precautions, request PT and OT assessments as well as case management for discharge planning with patient preference to [facility], will need to could potentially reassess usage of chronic anticoagulant therapy if she does return home given her serial fall history however this is difficult given her recurrent VTE history as well as recurrent apical mural thrombi history as well. #2. Chronic COPD w/ ongoing tobacco use with complaint of recent mildly productive cough: Given symptom complaint will maintain on ATC DuoNeb therapy as well as as needed albuterol, will request sputum culture and induction as well as obtain respiratory viral panel and obtain procalcitonin, encourage head of bed and I-S, encourage tobacco cessation with NR if needed and RT consultation. If any concern for bacterial etiology certainly could add antibiotics at that time. #3. CAD, history of mural thrombus with history of STEMI w/ PCI: Status post prior STEMI, stress test 08/2020 negative and follow-up 09/2020 catheterization with patent stents, continue aspirin, Plavix, Coreg, lisinopril, statin therapy. #4. PAF: EKG with SR without acute evidence of ischemia, continue coreg, continue eliquis. #5. Hypertension: Continue home regimen including Coreg, isosorbide, lisinopril with hold parameters as needed, PRN hydralazine. #6. Hyperlipidemia: Continue home statin regimen. #7. Takotsubo syndrome/ischemic cardiomyopathy/Chronic Systolic CHF: Continue aspirin, eliquis, Coreg, isosorbide, lisinopril, statin home regimen. #8. Diabetes mellitus type II: Hold oral home regimen, ADA diet until n.p.o. status, accu checks w/ ISS. #9. Chronic normocytic anemia/Fe deficiency anemia: Admission hemoglobin 12.9, baseline appears more recently 03-08, continue to trend, continue Fe supplementation. #10. Anxiety and depression: Continue home duloxetine as well as trazodone nightly regimen. #11. Overweight: Weight loss and lifestyle changes encouraged. #12. Restless leg syndrome: Continue patient home Requip regimen. #13. Hx Apical Mural Thrombus, Recurrent: Patient with history of prior mural thrombus with VTE history x 2, continue home eliquis regimen. #14. IBS with chronic diarrhea: Continue home as needed Bentyl regimen. #15. Hx VTE: Patient with history of VTE following [place] with intracardiac thrombus, also as noted concurrent apical mural thrombus, continue home eliquis regimen. #16. GERD: Continue home PPI. #17. BRYAN: BiPAP nightly. #18. Multiple Sclerosis w/ mild cognitive impairment: Continue patient home teriflunomide as well as donepezil regimen, fall precautions, #19. DVT prophylaxis: SCDs, continue home Eliquis regimen. #20. CODE status: Patient ARSH is her son Lazaro and her Sister Robina. Living will is also in place. Discussed CODE status at length including difference between FULL code, DNR-CCA and DNR-CC status. Following discussions about the differences in these status, requested Full Code status. Advanced Care Planning Face to Face Time: 17 minutes. Admission Evaluation Time spent evaluating chart, patient history, patient evaluation, care planning and discussion with specialists: 60 minutes. Charges/Coding Visit Charges Inpatient E&M: 28324 Init Hosp L2 Procedures Hospitalists Procedures: 31678 Advncd Care Plan 30 Min
[2022-06-06 15:48] LABS: Absolute Lymphocyte Count 1.36 X10^3/uL (0.83-4.51); Absolute Neutrophil Count 4.1 X10^3/uL (2.0-7.7); Basophil# 0.08 X10^3/uL; Basophil% 1.3 % (0-1); Eosinophil# 0.32 X10^3/uL; Hematocrit 39.8 % (37-47); Hemoglobin 12.9 g/dL (12.0-15.0); Lymphocyte # 1.36 X10^3/ul (0.83-4.51); Lymphocyte % 21.3 % (19-41); Mean Corp Hgb Conc 32.4 g/dL (32-36); Mean Corpuscular Hgb 31.4 pg (27.0-32.0); Mean Corpuscular Volume 96.8 fL (81-99); Mean Platelet Vol. 9.6 fl (6.2-12.0); Monocyte# 0.51 X10^3/uL; NRBC Flagged by Analyzer 0 % (0-5); Neutrophil % 63.9 % (47-70); Platelet Count 248 K/mm3 (150-450); RBC Distribution Width CV 13.5 % (11.6-14.6); RBC Distribution Width SD 47.9 fl (35.1-43.9); Red Blood Count 4.11 M/mm3 (4.2-5.4); White Blood Count 6.4 K/mm3 (4.4-11.0)
[2022-06-06 16:17] LABS: Anion Gap 7 (5-15); BUN 18 mg/dL (7-18); BUN/Creat Ratio 21.5 RATIO (10-20); Calcium,Total 9.2 mg/dL (8.5-10.1); Chloride 110 mmol/L (98-107); Creatinine, Serum 0.84 mg/dL (0.55-1.02); EST Glomerular Filtration Rate 72 mL/min (>60); Est Glom Filt Rate - Afr Amer 87 mL/min (>60); Estimated Creatinine Clearance 58.48 ml/min; Glucose 244 mg/dL (74-106); Sodium Level 140 mmol/L (136-145)
[2022-06-06 16:20] VITALS: BMI 30.9
[2022-06-06 16:22] VITALS: BP 144/116; PULSE 63; RESP 16; TEMP 37.2; O2SAT 93
[2022-06-06] MEDS: HYDROcodone Bitartrate/Apap 5/325 Tablet PO (17:50)
[2022-06-06 18:07] LABS: Procalcitonin 0.05 ng/mL (0.00-0.09)
[2022-06-06] MEDS: Ipratropium/Albuterol Sulfate 3 ML AMPUL.NEB INHALATION (19:31)
[2022-06-06 19:32] VITALS: PULSE 58; RESP 16; O2SAT 95
[2022-06-06 20:41] VITALS: BP 124/70; PULSE 56; RESP 20; TEMP 37.1; O2SAT 95
[2022-06-06] MEDS: Pramipexole Di-HCl 1 MG Tablet PO (20:48)
[2022-06-06] MEDS: QUEtiapine 25 MG Tablet PO (20:48)
[2022-06-06] MEDS: DULoxetine Hcl 30 MG Capsule PO (20:48)
[2022-06-06] MEDS: Atorvastatin Calcium 40 MG Tablet PO (20:48)
[2022-06-06] MEDS: guaiFENesin 1,200 MG Tablet 1200 MG PO (20:49)
[2022-06-06] MEDS: Isosorbide Mononitrate 30 MG Tablet PO (20:49)
[2022-06-06] MEDS: 0.9% Saline Lock 10 ML Syringe IV (20:50)
[2022-06-06] MEDS: Menthol/Lanolin/Calamine/Znox 113 GM Tube 1 APPLIC TOPICAL (20:53)
[2022-06-06] MEDS: Insulin Lispro 100 UNIT/ML INSULN.PEN SC (20:59)
[2022-06-06 22:06] LABS: Bedside Glucose 236 mg/dL (74-106)
[2022-06-07] VITALS (8 sets, daily range): BP systolic 129–159; BP diastolic 47–82; PULSE 61–78; RESP 17–20; TEMP 36.6–36.9; O2SAT 95–98
[2022-06-07] MEDS: Benzonatate 100 MG Capsule PO ×2 (01:04→09:44)
[2022-06-07] MEDS: Acetaminophen 325 MG Tablet 650 MG PO (01:04)
[2022-06-07] MEDS: Insulin Lispro 100 UNIT/ML INSULN.PEN SC ×4 (06:46→21:24)
[2022-06-07] MEDS: Sucralfate 1 GM Tablet PO ×3 (06:47→16:26)
[2022-06-07] MEDS: HYDROcodone Bitartrate/Apap 5/325 Tablet PO ×3 (06:50→21:24)
[2022-06-07] MEDS: Ipratropium/Albuterol Sulfate 3 ML AMPUL.NEB INHALATION ×3 (07:03→19:35)
[2022-06-07 07:25] LABS: Bedside Glucose 245 mg/dL (74-106)
[2022-06-07] MEDS: guaiFENesin 1,200 MG Tablet 1200 MG PO ×2 (09:43→21:23)
[2022-06-07] MEDS: APIXABAN 5 MG TABLET PO (09:43)
[2022-06-07] MEDS: Pramipexole Di-HCl 0.5 MG Tablet PO (09:44)
[2022-06-07] MEDS: Aspirin E.C. 81 MG Tablet PO (09:44)
[2022-06-07] MEDS: Carvedilol 6.25 MG Tablet PO ×2 (09:44→21:23)
[2022-06-07] MEDS: Pantoprazole Sodium 40 MG Tablet PO (09:44)
[2022-06-07] MEDS: Isosorbide Mononitrate 30 MG Tablet PO ×2 (09:44→21:23)
[2022-06-07] MEDS: Donepezil HCl 10 MG Tablet 20 MG PO (09:44)
[2022-06-07] MEDS: Ferrous Sulfate 325 MG Tablet PO (09:44)
[2022-06-07] MEDS: Lisinopril 20 MG Tablet PO (09:44)
[2022-06-07] MEDS: DULoxetine Hcl 30 MG Capsule PO ×2 (09:44→21:23)
[2022-06-07] MEDS: Menthol/Lanolin/Calamine/Znox 113 GM Tube 1 APPLIC TOPICAL ×3 (09:45→21:24)
[2022-06-07] MEDS: Modafinil 200 MG Tablet PO (09:48)
[2022-06-07 11:40] LABS: Bedside Glucose 192 mg/dL (74-106)
--- NOTE | 2022-06-07 14:17 | CASEMGMT ---
JEAN MARIE RANDHAWA in to complete SADLER form with patient. JEAN MARIE RANDHAWA explained SADLER form with patient, patient voiced understanding. Patient signed SADLER Form and filed in chart. Patient provided with copy of signed SADLER form. Patient had no further questions or concerns at this time.
--- NOTE | 2022-06-07 15:36 | CASEMGMT ---
Late Entr: on 06/06/22 PRAVIN asked Director Silas Pierre to ensure that this feature writer had done careport referral appropriately. Gabby advised it lookedd complete. Mary REYES
[2022-06-07] MEDS: guaiFENesin/Codeine 5 ML UDC 10 ML PO ×2 (16:26→22:45)
--- NOTE | 2022-06-07 16:42 | PN.HOSP_ITS ---
Reason for Visit Reason for Visit: Diagnoses Repeated falls (06/06/22) Other malaise (06/06/22) Subjective Subjective Patient was seen and examined today, she has complaints of cough but otherwise has no complaints to this examiner. Objective Data Objective Data Vital Signs: Vital Signs Temp Pulse Resp BP Pulse Ox O2 Del Method 98.3 F 61 18 131/59 H 97 Room Air 06/07/22 14:25 06/07/22 14:25 06/07/22 14:25 06/07/22 14:25 06/07/22 14:25 06/07/22 14:25 Oxygen Delivery Method Room Air Weight: 76.2 kg Body Mass Index (BMI) 30.9 Intake & Output: Intake and Output for Last 24 Hours 06/05/22 06/06/22 06/07/22 23:59 23:59 23:59 Intake Total 200 / 200 Balance 200 / 200 Lab / Micro Data Result Diagrams: 06/06/22 15:30 06/06/22 15:30 Labs: Laboratory Results - last 24 hr 06/06/22 16:54: Procalcitonin 0.05 06/06/22 20:55: POC Glucose 236 H 06/07/22 06:44: POC Glucose 245 H 06/07/22 11:17: POC Glucose 192 H Micro: Microbiology 06/06/22 20:25 Sputum, Expectorated/Coughed Gram Stain - Final 06/06/22 19:45 Interface Orders Respiratory Panel (PCR) - Final Physical Exam Narrative Patient appears older than her stated age Const alert, oriented x3 and no apparent distress HEENT head/scalp atraumatic Eyes PERRL and conjunctivae normal Neck supple and no JVD Resp normal respiratory effort, no retractions, no use of accessory muscles and clear to auscultation bilaterally Cardio regular rate, regular rhythm, S1 normal heart sound and S2 normal heart sound GI normal to inspection, nondistended, normoactive bowel sounds, soft to palpation and non-tender Extremity no clubbing, cyanosis or edema Neuro oriented x3 and CN's II-XII intact bilaterally Sensorium / Orientation: awake, alert, oriented to person and oriented to place Psych Psych Narrative: Patient has flat affect Assessment & Plan Assessment/Plan (1) Debility: PLAN: Plan 1. Acute on chronic debility due to multiple medical problems-continue PT and OT, patient will need placement in a residential facility for short-term rehab services #2 COPD-patient will remain on her present medications #3 coronary artery disease-patient will remain on her current medications #4 paroxysmal atrial fibrillation-patient is on rate limiting medication and anticoagulants #5 hypercoagulable state secondary to paroxysmal atrial fib-patient is on Eliquis #6 essential hypertension-patient will continue on home medications #7 multiple sclerosis-continue home medications #8 obstructive sleep apnea-patient uses BiPAP at night #9 type 2 diabetes-patient's blood sugars will be monitored, sliding scale insulin will be used as needed #10 possible dementia-patient's Aricept will be reduced to 10 mg daily. I am not absolutely sure on this diagnosis, Total clinical time spent by myself addressing the patient's medical problems, reviewing all of her data, and collaborating with patient's care team: 38 minutes I have elected to go through the patient's medications and try to remove the medications which I do not feel the patient needs. Charges/Coding Visit Charges Inpatient E&M: 07377 Subs Hosp L2
[2022-06-07 16:50] LABS: Bedside Glucose 229 mg/dL (74-106)
[2022-06-07] MEDS: Pramipexole Di-HCl 1 MG Tablet PO (21:23)
[2022-06-07] MEDS: QUEtiapine 25 MG Tablet PO (21:23)
[2022-06-07] MEDS: Atorvastatin Calcium 40 MG Tablet PO (21:23)
[2022-06-07 21:41] LABS: Bedside Glucose 268 mg/dL (74-106)
[2022-06-08] VITALS (8 sets, daily range): BP systolic 101–153; BP diastolic 47–70; PULSE 58–83; RESP 16–20; TEMP 36.6–37.3; O2SAT 93–98
[2022-06-08] MEDS: Ipratropium/Albuterol Sulfate 3 ML AMPUL.NEB INHALATION ×4 (01:25→19:21)
[2022-06-08] MEDS: HYDROcodone Bitartrate/Apap 5/325 Tablet PO ×4 (03:23→21:54)
[2022-06-08] MEDS: guaiFENesin/Codeine 5 ML UDC 10 ML PO ×4 (04:38→23:00)
[2022-06-08] MEDS: Insulin Lispro 100 UNIT/ML INSULN.PEN SC ×3 (06:56→21:51)
[2022-06-08 07:15] LABS: Bedside Glucose 231 mg/dL (74-106)
[2022-06-08] MEDS: Pramipexole Di-HCl 0.5 MG Tablet PO (09:26)
[2022-06-08] MEDS: Pantoprazole Sodium 40 MG Tablet PO (09:26)
[2022-06-08] MEDS: guaiFENesin 1,200 MG Tablet 1200 MG PO ×2 (09:26→21:46)
[2022-06-08] MEDS: Lisinopril 20 MG Tablet PO (09:26)
[2022-06-08] MEDS: APIXABAN 5 MG TABLET PO (09:27)
[2022-06-08] MEDS: Donepezil HCl 10 MG Tablet PO (09:27)
[2022-06-08] MEDS: Aspirin E.C. 81 MG Tablet PO (09:27)
[2022-06-08] MEDS: Isosorbide Mononitrate 30 MG Tablet PO ×2 (09:27→21:49)
[2022-06-08] MEDS: Carvedilol 6.25 MG Tablet PO ×2 (09:27→21:47)
[2022-06-08] MEDS: DULoxetine Hcl 30 MG Capsule PO ×2 (09:27→21:48)
[2022-06-08] MEDS: Modafinil 200 MG Tablet PO (09:30)
--- NOTE | 2022-06-08 11:35 | PN.HOSP_ITS ---
Reason for Visit Reason for Visit: Diagnoses Repeated falls (06/06/22) Other malaise (06/06/22) Subjective Subjective Patient was seen and examined today, I talked with her briefly about her medical problems, she requested to be placed on medication for overactive bladder, the medication she takes at home is not available at the hospital and she cannot get her home med, she states she has taken Ditropan before, I added this medication onto her meds here. She also states that she takes medicine for irritable bowel with diarrhea, I decided to place her on Bentyl, she is getting narcotics at this time and I am afraid to place her on a higher dose of Bentyl due to constipation issues. Medicine she takes at home is not available here. Mara gallego, patient states that she has memory issues resulting from her MS, she does not have dementia, she was placed on Aricept for the memory issues. Objective Data Objective Data Vital Signs: Vital Signs Temp Pulse Resp BP Pulse Ox O2 Del Method 98.6 F 71 20 H 115/47 L 94 Room Air 06/08/22 09:16 06/08/22 09:16 06/08/22 09:16 06/08/22 09:16 06/08/22 09:16 06/08/22 09:16 Oxygen Delivery Method Room Air Weight: 77.111 kg Body Mass Index (BMI) 30.9 Intake & Output: Intake and Output for Last 24 Hours 06/06/22 06/07/22 06/08/22 23:59 23:59 23:59 Intake Total 950 / 950 400 / 400 Balance 950 / 950 400 / 400 Lab / Micro Data Result Diagrams: 06/06/22 15:30 06/06/22 15:30 Labs: Laboratory Results - last 24 hr 06/07/22 11:17: POC Glucose 192 H 06/07/22 16:25: POC Glucose 229 H 06/07/22 21:04: POC Glucose 268 H 06/08/22 06:54: POC Glucose 231 H Micro: Microbiology 06/06/22 20:25 Sputum, Expectorated/Coughed Gram Stain - Final 06/06/22 20:25 Sputum, Expectorated/Coughed Respiratory Culture - Preliminary Appears to be normal respiratory scott. Further studies to follow. 06/06/22 19:45 Interface Orders Respiratory Panel (PCR) - Final Physical Exam Narrative Patient appears older than her stated age Const alert, oriented x3 and no apparent distress HEENT head/scalp atraumatic Eyes PERRL and conjunctivae normal Neck supple and no JVD Resp normal respiratory effort, no retractions, no use of accessory muscles and clear to auscultation bilaterally Cardio regular rate, regular rhythm, S1 normal heart sound and S2 normal heart sound GI normal to inspection, nondistended, normoactive bowel sounds, soft to palpation and non-tender Extremity no clubbing, cyanosis or edema Neuro oriented x3 and CN's II-XII intact bilaterally Sensorium / Orientation: awake, alert, oriented to person and oriented to place and time Psych Psych Narrative: Patient's affect is appropriate Assessment & Plan Assessment/Plan (1) Debility: PLAN: Plan 1. Acute on chronic debility due to multiple medical problems-continue PT and OT, patient will need placement in a nursing home facility for short-term rehab services #2 COPD-patient will remain on her present medications #3 coronary artery disease-patient will remain on her current medications #4 paroxysmal atrial fibrillation-patient is on rate limiting medication and anticoagulants #5 hypercoagulable state secondary to paroxysmal atrial fib-patient is on Eliquis #6 essential hypertension-patient will continue on home medications #7 multiple sclerosis-continue home medications #8 obstructive sleep apnea-patient uses BiPAP at night #9 type 2 diabetes-patient's blood sugars will be monitored, sliding scale insulin will be used as needed #10 Chronic memory impairment secondary to MS-patient will remain on Aricept at this time Total clinical time spent by myself addressing the patient's medical problems, reviewing all of her data, and collaborating with patient's care team: 37 minutes Charges/Coding Visit Charges Inpatient E&M: 26660 Subs Hosp L2
[2022-06-08] MEDS: Ondansetron 4 MG/2 ML Vial IV (11:52)
[2022-06-08] MEDS: 0.9% Saline Lock 10 ML Syringe IV (11:52)
[2022-06-08 12:15] LABS: Bedside Glucose 235 mg/dL (74-106)
[2022-06-08] MEDS: Dicyclomine 10 MG Capsule PO (14:51)
[2022-06-08] MEDS: Oxybutynin 5 MG Tablet PO ×2 (14:51→21:49)
[2022-06-08] MEDS: Menthol/Lanolin/Calamine/Znox 113 GM Tube 1 APPLIC TOPICAL (21:45)
[2022-06-08] MEDS: Pramipexole Di-HCl 1 MG Tablet PO (21:50)
[2022-06-08] MEDS: Atorvastatin Calcium 40 MG Tablet PO (21:50)
[2022-06-08] MEDS: QUEtiapine 25 MG Tablet PO (21:54)
[2022-06-08 22:06] LABS: Bedside Glucose 282 mg/dL (74-106)
[2022-06-09] VITALS (11 sets, daily range): BP systolic 109–123; BP diastolic 41–56; PULSE 66–76; RESP 17–21; TEMP 36.2–36.8; O2SAT 91–95
[2022-06-09] MEDS: Ondansetron 4 MG/2 ML Vial IV (03:59)
[2022-06-09] MEDS: 0.9% Saline Lock 10 ML Syringe IV (03:59)
[2022-06-09] MEDS: HYDROcodone Bitartrate/Apap 5/325 Tablet PO ×4 (04:00→21:57)
[2022-06-09] MEDS: guaiFENesin/Codeine 5 ML UDC 10 ML PO ×4 (04:51→23:11)
[2022-06-09] MEDS: Insulin Lispro 100 UNIT/ML INSULN.PEN SC ×4 (06:20→20:26)
[2022-06-09] MEDS: Dicyclomine 10 MG Capsule PO ×3 (06:21→15:54)
[2022-06-09 06:45] LABS: Bedside Glucose 255 mg/dL (74-106)
[2022-06-09] MEDS: Ipratropium/Albuterol Sulfate 3 ML AMPUL.NEB INHALATION ×3 (07:30→19:28)
--- NOTE | 2022-06-09 08:13 | CASEMGMT ---
Social Work SW sent PT/OT evals to [facility]. Precert to be started. PLAN: WILLIAN Berry
[2022-06-09] MEDS: Carvedilol 6.25 MG Tablet PO ×2 (10:22→20:20)
[2022-06-09] MEDS: Lisinopril 20 MG Tablet PO (10:22)
[2022-06-09] MEDS: Pantoprazole Sodium 40 MG Tablet PO (10:23)
[2022-06-09] MEDS: APIXABAN 5 MG TABLET PO (10:23)
[2022-06-09] MEDS: DULoxetine Hcl 30 MG Capsule PO ×2 (10:23→20:20)
[2022-06-09] MEDS: Isosorbide Mononitrate 30 MG Tablet PO ×2 (10:23→20:20)
[2022-06-09] MEDS: Oxybutynin 5 MG Tablet PO ×2 (10:23→20:20)
[2022-06-09] MEDS: Ferrous Sulfate 325 MG Tablet PO (10:23)
[2022-06-09] MEDS: Aspirin E.C. 81 MG Tablet PO (10:24)
[2022-06-09] MEDS: Donepezil HCl 10 MG Tablet PO (10:24)
[2022-06-09] MEDS: Pramipexole Di-HCl 0.5 MG Tablet PO (10:25)
[2022-06-09] MEDS: guaiFENesin 1,200 MG Tablet 1200 MG PO ×2 (10:25→20:20)
[2022-06-09] MEDS: Modafinil 200 MG Tablet PO (10:31)
[2022-06-09] MEDS: Menthol/Lanolin/Calamine/Znox 113 GM Tube 1 APPLIC TOPICAL ×2 (10:31→20:21)
[2022-06-09 12:41] LABS: Bedside Glucose 241 mg/dL (74-106)
--- NOTE | 2022-06-09 15:31 | CASEMGMT ---
Social Work SW in to meet with pt and give update that insurance auth is still pending. Pt voiced understanding. SW and pt discussed home life and pt reports going to [employer]. SW inquired if pt has DHCM based on this info. Pt confirmed DHCM is Gabriella Miller. SW called Gabriella to inform pt is admitted to hospital. Left voicemail. Pt did informed goes to [place] 2 times a week. Gets 10 meals per week from [employer] and had aides and long-term services but these staff quit and pt no longer gets this service, until new staff can be hired. Upon checking [facility] reports pending auth number as [id number], but explained pt does not yet have precert. PLAN: [facility], pending precert WILLIAN Bui
[2022-06-09 17:40] LABS: Bedside Glucose 333 mg/dL (74-106)
--- NOTE | 2022-06-09 18:02 | PCM.PN.HOSP ---
Reason for Visit Reason for Visit: Diagnoses Repeated falls (06/06/22) Other malaise (06/06/22) Subjective Subjective Patient was seen and examined today, she is concerned about a raised area on the bridge of her nose, it looks like a small sebaceous cyst, the area does not look infected and it is nontender and movable. We are currently awaiting for pre-CERT for her to go to an extended care facility. Objective Data Objective Data Vital Signs: Vital Signs Temp Pulse Resp BP Pulse Ox O2 Del Method 97.2 F L 71 18 109/41 L 95 Room Air 06/09/22 15:51 06/09/22 15:51 06/09/22 15:51 06/09/22 15:51 06/09/22 15:51 06/09/22 15:51 Oxygen Delivery Method Room Air Weight: 77.5 kg Body Mass Index (BMI) 30.9 Intake & Output: Intake and Output for Last 24 Hours 06/07/22 06/08/22 06/09/22 23:59 23:59 23:59 Intake Total 950 / 950 700 / 700 850 / 850 Balance 950 / 950 700 / 700 850 / 850 Lab / Micro Data Result Diagrams: 06/06/22 15:30 06/06/22 15:30 Labs: Laboratory Results - last 24 hr 06/08/22 21:44: POC Glucose 282 H 06/09/22 06:16: POC Glucose 255 H 06/09/22 12:17: POC Glucose 241 H 06/09/22 17:06: POC Glucose 333 H Micro: Microbiology 06/06/22 20:25 Sputum, Expectorated/Coughed Gram Stain - Final 06/06/22 20:25 Sputum, Expectorated/Coughed Respiratory Culture - Final 06/06/22 19:45 Interface Orders Respiratory Panel (PCR) - Final Physical Exam Const alert, oriented x3, no apparent distress and healthy appearing General Appearance: cooperative, well kempt and well developed Orientation / Consciousness: awake, oriented to person, oriented to place and oriented to time HEENT normocephalic and moist oral mucous membranes Eyes PERRL, EOMs intact bilaterally and conjunctivae normal Neck supple, no JVD and thyroid normal General: trachea midline Resp normal respiratory effort, no retractions, no use of accessory muscles and clear to auscultation bilaterally Auscultation: Negative for rales, rhonchi or wheezes Cardio regular rate, regular rhythm, no murmurs, no rub and no gallops GI normal to inspection, nondistended, normoactive bowel sounds, soft to palpation, non-tender and non-distended Extremity no clubbing, cyanosis or edema Skin no rashes or lesions noted General Skin Exam: no breakdown Neuro oriented x3, CN's II-XII intact bilaterally, moves all extremities, no focal motor deficits and no sensory deficits noted Sensorium / Orientation: awake and alert Speech: speech normal Psych affect normal Assessment & Plan Assessment/Plan (1) Debility: PLAN: Plan 1. Acute on chronic debility due to multiple medical problems-continue PT and OT, patient will need placement in a halfway facility for short-term rehab services, we are currently awaiting pre-CERT #2 COPD-patient will remain on her present medications #3 coronary artery disease-patient will remain on her current medications #4 paroxysmal atrial fibrillation-patient is on rate limiting medication and anticoagulants #5 hypercoagulable state secondary to paroxysmal atrial fib-patient is on Eliquis #6 essential hypertension-patient will continue on home medications #7 multiple sclerosis-continue home medications #8 obstructive sleep apnea-patient uses BiPAP at night #9 type 2 diabetes-patient's blood sugars will be monitored, sliding scale insulin will be used as needed #10 Chronic memory impairment secondary to MS-patient will remain on Aricept at this time Total clinical time spent by myself addressing the patient's medical problems, reviewing all of her data, and collaborating with patient's care team: 35 minutes Charges/Coding Visit Charges Inpatient E&M: 31945 Subs Hosp L2
[2022-06-09] MEDS: QUEtiapine 25 MG Tablet PO (20:19)
[2022-06-09] MEDS: Atorvastatin Calcium 40 MG Tablet PO (20:20)
[2022-06-09] MEDS: Pramipexole Di-HCl 1 MG Tablet PO (20:20)
[2022-06-09 20:45] LABS: Bedside Glucose 216 mg/dL (74-106)
[2022-06-10] VITALS (9 sets, daily range): BP systolic 106–133; BP diastolic 44–67; PULSE 62–86; RESP 16–18; TEMP 36.6; O2SAT 94–96
[2022-06-10] MEDS: HYDROcodone Bitartrate/Apap 5/325 Tablet PO ×4 (03:58→22:15)
--- NOTE | 2022-06-10 04:01 | NURSING ---
Pt requesting norco and robitussin on the exact time it is do. Informed pt we need to try Tylenol the next time. Pt said well i am getting my codiene in 1 hr. Inform pt this sends red flags to staff and md when pt always are to the correct time when it is do. Informed pt we dont want you to develop a drug problem. Pt expressed understanding
[2022-06-10] MEDS: guaiFENesin/Codeine 5 ML UDC 10 ML PO ×4 (05:39→23:28)
[2022-06-10] MEDS: Dicyclomine 10 MG Capsule PO ×3 (06:27→16:05)
[2022-06-10] MEDS: Insulin Lispro 100 UNIT/ML INSULN.PEN SC ×4 (06:29→22:26)
[2022-06-10 06:55] LABS: Bedside Glucose 233 mg/dL (74-106)
[2022-06-10] MEDS: Ipratropium/Albuterol Sulfate 3 ML AMPUL.NEB INHALATION ×3 (07:20→18:57)
[2022-06-10] MEDS: DULoxetine Hcl 30 MG Capsule PO ×2 (07:57→22:21)
[2022-06-10] MEDS: Carvedilol 6.25 MG Tablet PO ×2 (07:59→22:20)
[2022-06-10] MEDS: Pramipexole Di-HCl 0.5 MG Tablet PO (07:59)
[2022-06-10] MEDS: Donepezil HCl 10 MG Tablet PO (07:59)
[2022-06-10] MEDS: Oxybutynin 5 MG Tablet PO ×2 (07:59→22:20)
[2022-06-10] MEDS: Aspirin E.C. 81 MG Tablet PO (07:59)
[2022-06-10] MEDS: guaiFENesin 1,200 MG Tablet 1200 MG PO ×2 (07:59→22:20)
[2022-06-10] MEDS: Menthol/Lanolin/Calamine/Znox 113 GM Tube 1 APPLIC TOPICAL ×3 (07:59→22:18)
[2022-06-10] MEDS: Pantoprazole Sodium 40 MG Tablet PO (07:59)
[2022-06-10] MEDS: Isosorbide Mononitrate 30 MG Tablet PO ×2 (08:00→22:20)
[2022-06-10] MEDS: APIXABAN 5 MG TABLET PO (08:00)
--- NOTE | 2022-06-10 08:54 | CASEMGMT ---
Social Work [facility] reached out. Precert has been obtained. SW informed MD Fisher. Intent is to discharge pt today. SW informed pt of news. Pt voiced understanding, declined this SW to call others to inform of d/c plan. Pt stated would do this for self. Pt inquired about transport stopping at pt home to grab suitcase because it is on the way to [facility] and SW encouraged pt to ask [facility] if this was something that can be done, as hospital cannot make this decision. Pt voiced understanding. PLAN: WILLIAN Berry
[2022-06-10] MEDS: Modafinil 200 MG Tablet PO (09:26)
[2022-06-10] MEDS: Ondansetron 4 MG/2 ML Vial IV (09:31)
[2022-06-10] MEDS: 0.9% Saline Lock 10 ML Syringe IV (09:33)
[2022-06-10] MEDS: Lisinopril 20 MG Tablet PO (12:09)
[2022-06-10 12:25] LABS: Bedside Glucose 273 mg/dL (74-106)
--- NOTE | 2022-06-10 13:15 | CT_ITS ---
STUDY: CT CHEST WITHOUT CONTRAST REASON FOR EXAM: Female, 66 years old. Cough, dyspnea RADIATION DOSAGE (If Supplied By Facility): CTDIvol = ( 14.15 ) mGy, DLP = ( 463.25 ) mGycm TECHNIQUE: Transaxial imaging was performed without the administration of intravenous contrast material. Multiplanar coronal and sagittal images were reformatted. Individualized dose optimization techniques were used for this CT. COMPARISON: No relevant priors. FINDINGS: CHEST The lungs are normal. There is no demonstrated pleural abnormality. There are calcifications of the coronary arteries. Normal mediastinum. Normal hilar regions. Normal unenhanced pulmonary arteries. There is atherosclerotic calcification of the aortic arch with tortuosity and elongation of the aortic arch and descending thoracic aorta. There are multi-level degenerative changes of the thoracic spine. Increased kyphosis. There is no demonstrated abnormality of the visualized upper abdomen. CT/Chest without Contrast IMPRESSION: No acute abnormality is seen. Electronically Signed: Daljit Jordan MD at 14:29 EST ,
--- NOTE | 2022-06-10 16:06 | PCM.TXEXTCAR ---
Diet Diet Order/Speech Therapy: 06/06/22 17:27 Diet: Consistent Carb - Calorie Controlled Food consistency:: Regular Liquid Consistency:: Regular/Thin How many daily calories?: 1800 calorie Routine Orders/Code Status Routine Lab Work: - (Fingerstick blood sugars AC nightly, Humalog subcu per sliding scale: 200-250: 5 units, 251-300: 8 units, 301-350: 12 units, 351-400: 15 units) Code Status: Full Code Wound(s) dania heels: Wound Type: cracks to skin from dryness BUE, chin: Wound Type: scabs Therapies Weight Bearing: Full weight bearing Problem/Diagnosis (1) Debility: Status: Acute Code(s): R53.81 - Other malaise (2) Chronic neck pain with history of cervical spinal surgery: Status: Chronic Code(s): M54.2 - Cervicalgia; G89.28 - Other chronic postprocedural pain; Z98.890 - Other specified postprocedural states Plan 1. Acute on chronic debility due to multiple medical problems-continue PT and OT, patient will need placement in a fpc facility for short-term rehab services, we are currently awaiting pre-CERT #2 COPD-patient will remain on her present medications #3 coronary artery disease-patient will remain on her current medications #4 paroxysmal atrial fibrillation-patient is on rate limiting medication and anticoagulants #5 hypercoagulable state secondary to paroxysmal atrial fib-patient is on Eliquis #6 essential hypertension-patient will continue on home medications #7 multiple sclerosis-continue home medications #8 obstructive sleep apnea-patient uses BiPAP at night #9 type 2 diabetes-patient's blood sugars will be monitored, sliding scale insulin will be used as needed #10 Chronic memory impairment secondary to MS-patient will remain on Aricept at this time #11 chronic pain syndrome-secondary to degenerative joint disease of the cervical spine-patient is on chronic [facility] #12 chronic cough-probably secondary to lisinopril usage, at the time of discharge, patient will be changed to Diovan 320 daily Total clinical time spent by myself addressing the patient's medical problems, reviewing all of her data, and collaborating with patient's care team: 35 minutes Allergies/Procedures Done in Hospital Allergies indomethacin [From Indocin] Allergy (Verified 05/27/22 15:23) Hives indomethacin sodium [From Indocin] Allergy (Verified 05/27/22 15:23) Hives iodine Allergy (Verified 05/27/22 15:23) Hives propoxyphene napsylate [From Darvocet-N] Allergy (Verified 05/27/22 15:23) Out of control aripiprazole [From Abilify] Adverse Reaction (Verified 05/27/22 15:23) Other drool uncontrollably aspirin Adverse Reaction (Verified 05/27/22 15:23) Upset Stomach when taken in high doses clindamycin Adverse Reaction (Verified 05/27/22 15:23) Nausea metformin Adverse Reaction (Verified 05/27/22 15:23) Other IT CAUSES MY KIDNEYS TO DO WEIRD THINGS sumatriptan [From Imitrex] Adverse Reaction (Verified 05/27/22 15:23) Vomiting Procedures: None Type of Care/Length of Stay Estimated LOS: Convalescent Care Less Than 30 days Type of Care Needed: Skilled Rehab Potential: Fair Prognosis: Fair Additional Orders/Day of Discharge H&P will serve as current which was dated: 06/06/22 Day of Discharge: 06/10/22 Discharge Plan Admission Admit Date/Time: 06/06/22 16:00 Primary Reason for Your Visit: Generalized debility Attending Provider: Carlton Fisher Primary Care Provider: Carlton Rocha SLUDGE CONTROL ATTENDANT Consulting Providers: Shannan Cameron Discharge Orders/Prescriptions Prescriptions: New ipratropium-albuterol 0.5 mg-3 mg(2.5 mg base)/3 mL Solution For Nebulization 3 ml inhalation Q6HWA.RT Qty: 0 0RF hydrocodone-acetaminophen 5-325 mg Tablet 1 tab PO Q6H PRN PRN (Reason: Pain Score 1-10) 2 Days Qty: 10 0RF codeine-guaifenesin [Guaiatussin AC] 10-100 mg/5 mL Liquid 10 ml PO Q6H PRN PRN (Reason: COUGH) Qty: 60 0RF Eliquis 5 mg Tablet 5 mg PO BID Qty: 0 0RF quetiapine 25 mg Tablet 25 mg PO QHS Qty: 0 0RF acetaminophen [Tylenol] 325 mg Tablet 650 mg PO Q6H PRN (Reason: Pain (Scale Score 4-6)) Qty: 0 0RF albuterol sulfate 2.5 mg /3 mL (0.083 %) Solution For Nebulization 2.5 mg inhalation Q2H PRN PRN (Reason: Dyspnea, wheezing) Qty: 0 0RF donepezil 10 mg Tablet 10 mg PO QAM Qty: 0 0RF pramipexole 0.5 mg Tablet 0.5 mg PO DAILY Qty: 0 0RF Mucus Relief ER 1,200 mg Tablet Extended Release 12hr 1,200 mg PO BID Qty: 0 0RF valsartan [Diovan] 320 mg tablet 320 mg PO DAILY Qty: 1 0RF Continued vibegron 75 mg tablet 75 mg PO QHS duloxetine [Cymbalta] 30 mg capsule,delayed release(DR/EC) 30 mg PO BID Qty: 180 2RF cholecalciferol (vitamin D3) 125 mcg (5,000 unit) capsule 125 mcg PO DAILY ferrous sulfate 325 mg (65 mg iron) tablet 325 mg PO DAILY isosorbide mononitrate 30 mg tablet extended release 24 hr 30 mg PO BID eluxadoline 100 mg tablet 100 mg PO BID loperamide [Anti-Diarrheal (loperamide)] 2 mg tablet 2 mg PO Q6H PRN (Reason: Diarrhea) carvedilol 6.25 mg tablet 6.25 mg PO BID Rx Instructions: must administer with a meal/food aspirin [Adult Aspirin Regimen] 81 mg tablet,delayed release (DR/EC) 81 mg PO DAILY Kesimpta Pen 20 mg/0.4 mL pen injector 20 mg subcut QMONTH Rx Instructions: begin at Week 4 of therapy acidophilus-pectin, citrus 100 million cell-10 mg capsule 1 cap PO DAILY Qty: 90 3RF modafinil 200 MG tablet 200 mg PO DAILY acetaminophen 500 MG tablet 1,000 mg PO TID PRN (Reason: pain -02/03) Qty: 1 0RF Rx Instructions: alternate with ibuprofen quetiapine [Seroquel] 25 mg tablet 25 mg PO QHS atorvastatin 40 mg tablet 40 mg PO QHS ropinirole 2 mg tablet 2 mg PO QHS Rx Instructions: administer 1-3 hours before bedtime pantoprazole 40 mg tablet,delayed release (DR/EC) 40 mg PO DAILY ascorbic acid (vitamin C) 500 mg tablet,chewable 500 mg PO DAILY Prolia 60 mg/mL syringe 60 mg subcut [id number] Farxiga 10 mg tablet 10 mg PO QAM glimepiride 4 mg tablet 4 mg PO DAILY Qty: 60 3RF Label Comments: diabetes; 2100. Rx Instructions: Hold if glucose less than 130 mg/dl pioglitazone 30 mg tablet 30 mg PO DAILY Qty: 90 1RF hydroxyzine HCl 50 mg tablet 50 mg PO BID PRN (Reason: Itching) Qty: 60 2RF ondansetron 4 mg tablet,disintegrating 4 mg PO Q8H PRN (Reason: nausea and vomiting) Qty: 15 0RF Changed benzonatate 100 mg capsule 200 mg PO TID PRN (Reason: cough) Qty: 30 0RF Discontinued dicyclomine 20 mg tablet 20 mg PO BID PRN (Reason: abdominal discomfort) Qty: 180 2RF furosemide 20 mg tablet 20 mg PO QAM PRN (Reason: edema) Qty: 90 1RF hydrocodone-acetaminophen 5-325 mg tablet 1 tab PO Q8H PRN (Reason: Pain) 7 Days Qty: 10 0RF donepezil [Aricept] 10 mg tablet 20 mg PO DAILY sucralfate [Carafate] 1 gram tablet 1 g PO QAC lisinopril 20 mg tablet 20 mg PO BID Eliquis 5 mg tablet 5 mg PO DAILY albuterol sulfate 2.5 mg /3 mL (0.083 %) solution for nebulization 2.5 mg inhalation Q6H PRN (Reason: SOB/Wheezing) Qty: 180 1RF (DME) nebulizers Misc See Rx Instructions .Route Qty: 1 0RF Rx Instructions: Nebulizer with compressor No Action ropinirole 1 mg tablet 1 mg PO DAILY Qty: 90 2RF Rx Instructions: 1 mg PO Lunch potassium chloride 20 mEq tablet extended release 20 meq PO DAILY PRN (Reason: take with lasix) Qty: 90 1RF Referrals / Follow Up: Carlton Rocha SLUDGE CONTROL ATTENDANT, SLUDGE CONTROL ATTENDANT-C [Primary Care Provider] - Disposition Disposition (needs filled in before D/C Order can be placed): Intermediate Facility
--- NOTE | 2022-06-10 16:25 | DS.PCM_ITS ---
Providers Date of Admission: 06/06/22 Date of Discharge: 06/10/22 Primary Care Physician: JAYRO Gonzalez Reason For Visit: FTT ADULT, FALLS Diagnosis Discharge Diagnosis (1) Debility: Status: Acute Code(s): R53.81 - Other malaise (2) Chronic neck pain with history of cervical spinal surgery: Status: Chronic Code(s): M54.2 - Cervicalgia; G89.28 - Other chronic postprocedural pain; Z98.890 - Other specified postprocedural states Plan 1. Acute on chronic debility due to multiple medical problems-continue PT and O T, patient will need placement in a senior living facility for short-term rehab services, we are currently awaiting pre-CERT #2 COPD-patient will remain on her present medications #3 coronary artery disease-patient will remain on her current medications #4 paroxysmal atrial fibrillation-patient is on rate limiting medication and anticoagulants #5 hypercoagulable state secondary to paroxysmal atrial fib-patient is on Eliquis #6 essential hypertension-patient will continue on home medications #7 multiple sclerosis-continue home medications #8 obstructive sleep apnea-patient uses BiPAP at night #9 type 2 diabetes-patient's blood sugars will be monitored, sliding scale insulin will be used as needed #10 Chronic memory impairment secondary to MS-patient will remain on Aricept at this time #11 chronic pain syndrome-secondary to degenerative joint disease of the cervical spine-patient is on chronic Alexander #12 chronic cough-probably secondary to lisinopril usage, at the time of adilia varghese, patient will be changed to Diovan 320 daily Total clinical time spent by myself addressing the patient's medical problems, reviewing all of her data, and collaborating with patient's care team: 35 minutes Medications at Discharge Home Medications modafinil 200 mg tablet 200 mg PO DAILY to stay awake 12/12/19 acetaminophen 500 mg tablet 1,000 mg PO TID PRN pain -02/03 #1 TAB 07/29/20 vibegron 75 mg tablet 75 mg PO QHS bladder 07/03/21 duloxetine 30 mg capsule,delayed release (Cymbalta) 30 mg PO BID mental health #180 caps 09/20/21 cholecalciferol (vitamin D3) 125 mcg (5,000 unit) capsule 125 mcg PO DAILY supplement 11/05/21 ferrous sulfate 325 mg (65 mg iron) tablet 325 mg PO DAILY supplement 11/05/21 loperamide 2 mg tablet (Anti-Diarrheal (loperamide)) 2 mg PO Q6H PRN Diarrhea 12/24/21 potassium chloride 20 mEq tablet,extended release 20 meq PO DAILY PRN take with lasix #90 tabs 12/24/21 carvedilol 6.25 mg tablet 6.25 mg PO BID dose reduced while in [facility] 01/14/22 isosorbide mononitrate 30 mg tablet,extended release 24 hr 30 mg PO BID heart 01/14/22 glimepiride 4 mg tablet 4 mg PO DAILY BLOOD SUGAR #60 tabs 03/04/22 acidophilus 100 million cell-pectin, citrus 10 mg capsule 1 cap PO DAILY supplement #90 caps 04/01/22 aspirin 81 mg tablet,delayed release (Adult Aspirin Regimen) 81 mg PO DAILY heart health 04/01/22 eluxadoline 100 mg tablet 100 mg PO BID IBS 04/01/22 ofatumumab 20 mg/0.4 mL subcutaneous pen injector (Kesimpta Pen) 20 mg subcut QMONTH MS 04/01/22 pioglitazone 30 mg tablet 30 mg PO DAILY diabetes #90 tabs 05/05/22 hydroxyzine HCl 50 mg tablet 50 mg PO BID PRN Itching #60 tabs 05/29/22 ondansetron 4 mg disintegrating tablet 4 mg PO Q8H PRN nausea and vomiting #15 tabs 06/02/22 ascorbic acid (vitamin C) 500 mg chewable tablet 500 mg PO DAILY supplement 06/06/22 atorvastatin 40 mg tablet 40 mg PO QHS cholesterol 06/06/22 dapagliflozin 10 mg tablet (Farxiga) 10 mg PO QAM DM 06/06/22 denosumab 60 mg/mL subcutaneous syringe (Prolia) 60 mg subcut [id number] bone health 06/06/22 pantoprazole 40 mg tablet,delayed release 40 mg PO DAILY gerd 06/06/22 quetiapine 25 mg tablet (Seroquel) 25 mg PO QHS mood 06/06/22 ropinirole 2 mg tablet 2 mg PO QHS restless leg 06/06/22 acetaminophen 325 mg tablet (Tylenol) 650 mg PO Q6H PRN Pain (Scale Score 4-6) #0 tabs 06/10/22 albuterol sulfate 2.5 mg/3 mL (0.083 %) solution for nebulization 2.5 mg (3 mL) inhalation Q2H PRN PRN Dyspnea, wheezing #0 mL 06/10/22 apixaban 5 mg tablet (Eliquis) 5 mg PO BID #0 tabs 06/10/22 benzonatate 100 mg capsule 200 mg PO TID PRN cough #30 caps 06/10/22 codeine 10 mg-guaifenesin 100 mg/5 mL oral liquid (Guaiatussin AC) 10 ml PO Q6H PRN PRN COUGH #60 mL 06/10/22 donepezil 10 mg tablet 10 mg PO QAM #0 tabs 06/10/22 guaifenesin 1,200 mg tablet, extended release 12 hr (Mucus Relief ER) 1,200 mg PO BID #0 tabs 06/10/22 hydrocodone-acetaminophen 5-325mg 5mg-325mg 1 tab PO Q6H PRN PRN Pain Score 1-10 2 days #10 tabs 06/10/22 ipratropium 0.5 mg-albuterol 3 mg (2.5 mg base)/3 mL nebulization soln 3 ml inhalation Q6HWA.RT #0 mL 06/10/22 pramipexole 0.5 mg tablet 0.5 mg PO DAILY #0 tabs 06/10/22 quetiapine 25 mg tablet 25 mg PO QHS #0 tabs 06/10/22 insulin lispro 100 unit/mL subcutaneous pen (Humalog KwikPen (U-100) Insulin) 1 sliding scale dose subcut USEASDIRECTD 06/13/22 losartan 100 mg tablet 50 mg PO DAILY 06/13/22 Hospital Course Operations None Procedures None Summary of Care Provided Minutes Spent on Discharge: 32 Hospital Course: 66-year-old white female was seen in the emergency room at [facility] after suffering a mechanical fall and head injury, patient was on Eliquis due to to history of thrombus in her heart. Patient has MS and walks with a walker at home. Patient admitted to recent multiple falls at home. She had been on a list to try to get into [facility] but was told she needed medical clearance. Patient would by her self, examination the emergency room revealed the patient to be tender to palpation of the right parietal area there is no laceration or hematoma and no depressions noted. Trauma scans of the head and neck were negative, patient was placed in observation status on [facility] 3 and she was seen by PT and OT, we obtained approval from the patient's insurance carrier for transfer to senior living facility for further care. Underwent a CT of her chest due to complaints of chronic cough, this examiner felt that her chronic cough was probably secondary to lisinopril usage as an outpatient. On discharge to the extended care facility, she was changed over to valsartan. On 06/10/2022, patient was seen and examined: On examination she appeared older than her stated age, she does not appear to be in any distress. Vital signs as documented. Skin warm and dry and without overt rashes. Neck without JVD, thy roid appears normal, trachea is midline, neck is supple. Lungs clear, normal air movement was noted. Heart exam notable for regular rhythm, normal sounds and absence of murmurs, rubs or gallops. Abdomen unremarkable and without evidence of organomegaly, masses, or abdominal aortic enlargement, bowel sounds are present in all 4 quadrants, no abdominal tenderness was noted. Extremities nonedematous, no cyanosis was noted, no clubbing was noted. Neuro: Cranial nerves II through XII are grossly intact, no focal motor deficits were noted, sensation to light touch and pinprick is intact, motor exam 5/5 throughout. Psych: Patient is alert and oriented x3, she does not appear anxious or depressed, she does not appear agitated. On 06/10/2022, patient seen and examined and felt to be in stable condition for transfer to a senior living facility. Weight / BMI Weight Weight: 79.6 kg Body Mass Index (BMI) 30.9 ABG / Lab / Microbiology Data Result Diagrams: 06/06/22 15:30 06/06/22 15:30 Laboratory: Laboratory Results - last 24 hr 06/09/22 17:06: POC Glucose 333 H 06/09/22 20:26: POC Glucose 216 H 06/10/22 06:28: POC Glucose 233 H 06/10/22 11:49: POC Glucose 273 H Microbiology: Microbiology 06/10/22 09:30 Nasal Secretion SARS-CoV-2 Antigen (Rapid) - Final 06/06/22 20:25 Sputum, Expectorated/Coughed Gram Stain - Final 06/06/22 20:25 Sputum, Expectorated/Coughed Respiratory Culture - Final 06/06/22 19:45 Interface Orders Respiratory Panel (PCR) - Final Radiography Diagnostic Testing: Radiology Impression Chest CT 06/10/22 13:15 IMPRESSION: No acute abnormality is seen. Electronically Signed: Daljit Jordan MD at 14:29 EST , Meaningful Use Info Meaningful Use Diagnoses (Choose all that apply): None applicable Discharge Plan Admission Admit Date/Time: 06/06/22 16:00 Primary Reason for Your Visit: Generalized debility Attending Provider: Carlton Fisher Primary Care Provider: Carlton Rocha BOX BENDER Consulting Providers: Shannan Cameron Discharge Orders/Prescriptions Prescriptions: New ipratropium-albuterol 0.5 mg-3 mg(2.5 mg base)/3 mL Solution For Nebulization 3 ml inhalation Q6HWA.RT Qty: 0 0RF hydrocodone-acetaminophen 5-325 mg Tablet 1 tab PO Q6H PRN PRN (Reason: Pain Score 1-10) 2 Days Qty: 10 0RF codeine-guaifenesin [Guaiatussin AC] 10-100 mg/5 mL Liquid 10 ml PO Q6H PRN PRN (Reason: COUGH) Qty: 60 0RF Eliquis 5 mg Tablet 5 mg PO BID Qty: 0 0RF quetiapine 25 mg Tablet 25 mg PO QHS Qty: 0 0RF acetaminophen [Tylenol] 325 mg Tablet 650 mg PO Q6H PRN (Reason: Pain (Scale Score 4-6)) Qty: 0 0RF albuterol sulfate 2.5 mg /3 mL (0.083 %) Solution For Nebulization 2.5 mg inhalation Q2H PRN PRN (Reason: Dyspnea, wheezing) Qty: 0 0RF donepezil 10 mg Tablet 10 mg PO QAM Qty: 0 0RF pramipexole 0.5 mg Tablet 0.5 mg PO DAILY Qty: 0 0RF Mucus Relief ER 1,200 mg Tablet Extended Release 12hr 1,200 mg PO BID Qty: 0 0RF Continued vibegron 75 mg tablet 75 mg PO QHS duloxetine [Cymbalta] 30 mg capsule,delayed release(DR/EC) 30 mg PO BID Qty: 180 2RF cholecalciferol (vitamin D3) 125 mcg (5,000 unit) capsule 125 mcg PO DAILY ferrous sulfate 325 mg (65 mg iron) tablet 325 mg PO DAILY isosorbide mononitrate 30 mg tablet extended release 24 hr 30 mg PO BID eluxadoline 100 mg tablet 100 mg PO BID loperamide [Anti-Diarrheal (loperamide)] 2 mg tablet 2 mg PO Q6H PRN (Reason: Diarrhea) carvedilol 6.25 mg tablet 6.25 mg PO BID Rx Instructions: must administer with a meal/food aspirin [Adult Aspirin Regimen] 81 mg tablet,delayed release (DR/EC) 81 mg PO DAILY Kesimpta Pen 20 mg/0.4 mL pen injector 20 mg subcut QMONTH Rx Instructions: begin at Week 4 of therapy acidophilus-pectin, citrus 100 million cell-10 mg capsule 1 cap PO DAILY Qty: 90 3RF modafinil 200 MG tablet 200 mg PO DAILY acetaminophen 500 MG tablet 1,000 mg PO TID PRN (Reason: pain -02/03) Qty: 1 0RF Rx Instructions: alternate with ibuprofen quetiapine [Seroquel] 25 mg tablet 25 mg PO QHS atorvastatin 40 mg tablet 40 mg PO QHS ropinirole 2 mg tablet 2 mg PO QHS Rx Instructions: administer 1-3 hours before bedtime pantoprazole 40 mg tablet,delayed release (DR/EC) 40 mg PO DAILY ascorbic acid (vitamin C) 500 mg tablet,chewable 500 mg PO DAILY Prolia 60 mg/mL syringe 60 mg subcut [id number] Farxiga 10 mg tablet 10 mg PO QAM glimepiride 4 mg tablet 4 mg PO DAILY Qty: 60 3RF Label Comments: diabetes; 2100. Rx Instructions: Hold if glucose less than 130 mg/dl pioglitazone 30 mg tablet 30 mg PO DAILY Qty: 90 1RF hydroxyzine HCl 50 mg tablet 50 mg PO BID PRN (Reason: Itching) Qty: 60 2RF ondansetron 4 mg tablet,disintegrating 4 mg PO Q8H PRN (Reason: nausea and vomiting) Qty: 15 0RF Changed benzonatate 100 mg capsule 200 mg PO TID PRN (Reason: cough) Qty: 30 0RF Discontinued dicyclomine 20 mg tablet 20 mg PO BID PRN (Reason: abdominal discomfort) Qty: 180 2RF furosemide 20 mg tablet 20 mg PO QAM PRN (Reason: edema) Qty: 90 1RF hydrocodone-acetaminophen 5-325 mg tablet 1 tab PO Q8H PRN (Reason: Pain) 7 Days Qty: 10 0RF donepezil [Aricept] 10 mg tablet 20 mg PO DAILY sucralfate [Carafate] 1 gram tablet 1 g PO QAC lisinopril 20 mg tablet 20 mg PO BID Eliquis 5 mg tablet 5 mg PO DAILY albuterol sulfate 2.5 mg /3 mL (0.083 %) solution for nebulization 2.5 mg inhalation Q6H PRN (Reason: SOB/Wheezing) Qty: 180 1RF (DME) nebulizers Misc See Rx Instructions .Route Qty: 1 0RF Rx Instructions: Nebulizer with compressor No Action potassium chloride 20 mEq tablet extended release 20 meq PO DAILY PRN (Reason: take with lasix) Qty: 90 1RF insulin lispro [Humalog KwikPen Insulin] 100 unit/mL insulin pen 1 sliding scale dose subcut USEASDIRECTD losartan 100 mg tablet 50 mg PO DAILY Referrals / Follow Up: Carlton Rocha [facility]ENDER, [facility]C [Primary Care Provider] - Disposition Disposition (needs filled in before D/C Order can be placed): Care Home Facility Charges/Coding Visit Charges Inpatient E&M: 39263 Disch Hosp >30min
[2022-06-10 16:30] LABS: Bedside Glucose 242 mg/dL (74-106)
--- NOTE | 2022-06-10 18:10 | CASEMGMT ---
SW Note 3030 completed, copy provided to nurse staff community health. Plan: Dm LECHUGA, DANIEL
--- NOTE | 2022-06-10 18:14 | NURSING ---
Report called to Opal at [facility]. We are still attempting to set up transport and Opal is aware of that. Will call back once transport is set up and let [facility] know a time.
--- NOTE | 2022-06-10 18:56 | NURSING ---
per [facility] - they did not have any wheel chairs available to pick pt up tonight. and her insurance does not cover ambulance. transport was set up for 10am 06/11/22. Dr. Natalia flores.
--- NOTE | 2022-06-10 18:59 | NURSING ---
Patient and Opal from [facility] made aware that patient will be transported 06/11 at 10 am. Charge nurse to update physician.
[2022-06-10] MEDS: Pramipexole Di-HCl 1 MG Tablet PO (22:20)
[2022-06-10] MEDS: Atorvastatin Calcium 40 MG Tablet PO (22:20)
[2022-06-10] MEDS: QUEtiapine 25 MG Tablet PO (22:20)
[2022-06-10 23:50] LABS: Bedside Glucose 299 mg/dL (74-106)
[2022-06-11 04:14] VITALS: BP 107/59; PULSE 62; RESP 16; TEMP 36.6; O2SAT 98
[2022-06-11] MEDS: HYDROcodone Bitartrate/Apap 5/325 Tablet PO ×2 (04:20→10:22)
[2022-06-11 07:03] VITALS: BP 107/43; PULSE 74; RESP 18; TEMP 36.4; O2SAT 92
[2022-06-11] MEDS: Insulin Lispro 100 UNIT/ML INSULN.PEN SC ×2 (07:06→11:02)
[2022-06-11] MEDS: Dicyclomine 10 MG Capsule PO ×2 (07:07→11:02)
[2022-06-11 07:29] VITALS: PULSE 78; RESP 16
[2022-06-11] MEDS: Ipratropium/Albuterol Sulfate 3 ML AMPUL.NEB INHALATION (07:29)
[2022-06-11 07:45] VITALS: PULSE 63; RESP 16
[2022-06-11 07:50] LABS: Bedside Glucose 252 mg/dL (74-106)
[2022-06-11 08:05] VITALS: BP 110/61; PULSE 63; RESP 16; TEMP 36.4; O2SAT 98
[2022-06-11] MEDS: Lisinopril 20 MG Tablet PO (08:25)
[2022-06-11] MEDS: Carvedilol 6.25 MG Tablet PO (08:26)
[2022-06-11] MEDS: Ferrous Sulfate 325 MG Tablet PO (08:26)
[2022-06-11] MEDS: guaiFENesin 1,200 MG Tablet 1200 MG PO (08:26)
[2022-06-11] MEDS: Donepezil HCl 10 MG Tablet PO (08:26)
[2022-06-11] MEDS: Pantoprazole Sodium 40 MG Tablet PO (08:26)
[2022-06-11] MEDS: Pramipexole Di-HCl 0.5 MG Tablet PO (08:26)
[2022-06-11] MEDS: APIXABAN 5 MG TABLET PO (08:27)
[2022-06-11] MEDS: DULoxetine Hcl 30 MG Capsule PO (08:27)
[2022-06-11] MEDS: Oxybutynin 5 MG Tablet PO (08:27)
[2022-06-11] MEDS: Aspirin E.C. 81 MG Tablet PO (08:27)
[2022-06-11] MEDS: Isosorbide Mononitrate 30 MG Tablet PO (08:27)
[2022-06-11] MEDS: Modafinil 200 MG Tablet PO (08:34)
--- NOTE | 2022-06-11 09:03 | NURSING ---
Report called to Laura the receiving nurse at [facility].
[2022-06-11] MEDS: guaiFENesin/Codeine 5 ML UDC 10 ML PO (09:23)
--- NOTE | 2022-06-11 10:41 | CASEMGMT ---
Social Work Per Charge nurse Sharmin, transport was set through [facility] last night for this AM at 10. [facility] has not yet arrived for pt. SW in to pt room to explain issues with transport. SW informed pt will call again to set things up. SW returned to desk and began working on phone call to Physicians. [employer] SPECIALIST came to and informed pt had called [facility] and [facility] will come pick pt up with wheelchair in 25 minutes. SW will pause setting up transport to determine if [facility] arrives and is able to transport pt. Dispo: [facility], skilled, convalescent level of care WILLIAN Bui
[2022-06-11 11:07] VITALS: BP 137/66; PULSE 62; RESP 18; TEMP 36.6; O2SAT 97
[2022-06-11 11:25] LABS: Bedside Glucose 270 mg/dL (74-106)
== END 2022-06-11 11:21 | disposition skilled nursing facility (03) ==
LOC: ED 15:37 → MS3 16:14
PROVIDERS: Admitting Provider Family Medicine; Emergency Provider Emergency Medicine; PCP Nurse Practitioner Family; Visit Provider Internal Medicine
DX: R53.81 Other malaise (principal); G35 Multiple sclerosis; J44.9 Chronic obstructive pulmonary disease, unspecified; I13.0 Hypertensive heart and chronic kidney disease with heart failure and stage 1 through stage 4 chronic kidney disease, or unspecified chronic kidney disease; I50.22 Chronic systolic (congestive) heart failure; E11.22 Type 2 diabetes mellitus with diabetic chronic kidney disease; I48.0 Paroxysmal atrial fibrillation; N18.30 Chronic kidney disease, stage 3 unspecified; F32.A Depression, unspecified; W19.XXXA Unspecified fall, initial encounter; E78.5 Hyperlipidemia, unspecified; K58.0 Irritable bowel syndrome with diarrhea; N32.81 Overactive bladder; S09.90XA Unspecified injury of head, initial encounter; I25.5 Ischemic cardiomyopathy; Z79.82 Long term (current) use of aspirin; F41.9 Anxiety disorder, unspecified; Z79.01 Long term (current) use of anticoagulants; G47.33 Obstructive sleep apnea (adult) (pediatric); I25.10 Atherosclerotic heart disease of native coronary artery without angina pectoris; Z79.84 Long term (current) use of oral hypoglycemic drugs; Z79.899 Other long term (current) drug therapy; I25.2 Old myocardial infarction; R62.7 Adult failure to thrive; G31.84 Mild cognitive impairment of uncertain or unknown etiology; D50.9 Iron deficiency anemia, unspecified; L72.3 Sebaceous cyst
CPT/HCPCS: 70450; 71046; 71250; 72125; 80048; 82962; 84145; 85025; 87070; 87205; 87426; 87633; 94640; 94668; 96374; 96376; 97110; 97116; 97162; 97164; 97166; 97168; 97530; 97535; 99221; 99252; 99285; A4216; G0378; G0463; J2405

== ENCOUNTER → 2022-09-12 | Outpatient (CLI) | payer MEDICARE, MEDICAID, SELFPAY ==
[2016-07-13 11:45] VITALS: BMI 31.4
[2022-09-12 12:29] LABS: Absolute Neutrophil Count 4.4 X10^3/uL (2.0-7.7); Basophil# 0.07 X10^3/uL; Eosinophil# 0.22 X10^3/uL; Eosinophils% 3.2 % (0-5); Hematocrit 47.1 % (37-47); Hemoglobin 14.7 g/dL (12.0-15.0); Mean Corp Hgb Conc 31.2 g/dL (32-36); Mean Corpuscular Hgb 30.8 pg (27.0-32.0); Mean Corpuscular Volume 98.5 fL (81-99); Mean Platelet Vol. 10.4 fl (6.2-12.0); Monocyte# 0.65 X10^3/uL; Monocyte% 9.5 % (0-10); NRBC Flagged by Analyzer 0 % (0-5); Neutrophil # 4.36 X10^3/uL (2.7-7.7); Neutrophil % 63.9 % (47-70); Platelet Count 206 K/mm3 (150-450); RBC Distribution Width CV 13.3 % (11.6-14.6); RBC Distribution Width SD 49.1 fl (35.1-43.9); Red Blood Count 4.78 M/mm3 (4.2-5.4); White Blood Count 6.8 K/mm3 (4.4-11.0)
[2022-09-12 12:46] LABS: Vitamin B12 364 pg/mL (211-911); Vitamin D,25 Hydroxy 52.3 ng/mL
[2022-09-12 12:54] LABS: ALB/GLOB Ratio 1.2 RATIO (0.9-2.4); AST(SGOT) 13 U/L (15-37); Alanine Aminotransfer ALT/SGPT 20 U/L (13-56); Albumin, Serum 3.5 g/dL (3.2-5.0); Alkaline Phosphatase 70 U/L (45-117); Anion Gap 4 (5-15); BUN 19 mg/dL (7-18); BUN/Creat Ratio 20.2 RATIO (10-20); Calcium,Total 9.9 mg/dL (8.5-10.1); Chloride 108 mmol/L (98-107); Creatinine, Serum 0.94 mg/dL (0.55-1.02); EST Glomerular Filtration Rate 63 mL/min (>60); Est Glom Filt Rate - Afr Amer 76 mL/min (>60); Globulin 2.9 g/dL (2.2-4.2); Glucose 261 mg/dL (74-106); Potassium 4.8 mmol/L (3.5-5.1); Protein, Total 6.4 g/dL (6.4-8.2); Sodium Level 138 mmol/L (136-145); Thyroid Stim Hormone (TSH) 0.84 uIU/mL (0.358-3.74)
== END | disposition home or self-care (01) ==
LOC: BIMLAB 08:05
PROVIDERS: PCP Nurse Practitioner Family; Referring Provider Nurse Practitioner Family; Visit Provider Nurse Practitioner Family
DX: F32.9 Major depressive disorder, single episode, unspecified (principal); E56.9 Vitamin deficiency, unspecified; R53.83 Other fatigue; M81.0 Age-related osteoporosis without current pathological fracture
CPT/HCPCS: 36415; 80053; 82306; 82607; 84443; 85025

== ENCOUNTER 2022-09-23 11:46 | Emergency (ER) | payer MEDICARE, MEDICAID, SELFPAY ==
[2016-07-13 11:45] VITALS: BMI 31.4
[2022-09-23 11:48] VITALS: BP 117/82; PULSE 58; RESP 16; TEMP 36.3; O2SAT 97; BMI 29.3
--- NOTE | 2022-09-23 11:57 | CT_ITS ---
EXAM: CT ABDOMEN AND PELVIS WITHOUT INTRAVENOUS CONTRAST CLINICAL INDICATION: abdominal pain TECHNIQUE: Helically acquired images were obtained of the abdomen and pelvis without intravenous contrast. This CT exam was performed using one or more of the following dose reduction techniques: automated exposure control, adjustment of the mA and/or kV according to patient size, and/or use of iterative reconstruction technique. COMPARISON: CT Abdomen Pelvis dated 11/20/2017 and 10/16/2017 FINDINGS: LOWER THORAX: Mild centrilobular pulmonary emphysema. ABDOMEN: LIVER: Normal. Homogeneous. PANCREAS: Small foci of pancreatic calcification and mild prominence of the pancreatic duct likely related to changes of chronic pancreatitis. No evidence of a pancreatic mass. No focal cystic mass. SPLEEN: Normal. Normal size without focal cystic or solid mass. ADRENALS: Normal. No nodules. KIDNEYS AND URETERS: Normal. No hydronephrosis. STOMACH AND BOWEL: Mild diffuse distention of the small bowel suggestive of ileus. PELVIS: APPENDIX: Appendix is visualized and normal in appearance. BLADDER: Normal. REPRODUCTIVE: Unremarkable as visualized. No mass. ABDOMEN and PELVIS: INTRAPERITONEAL SPACE: Normal. No ascites or other fluid collection. No free air. BONES/JOINTS: Prominent degenerative changes are noted within the spine. The L4-L5 laminectomy again seen. SOFT TISSUES: Normal. No discrete abdominal or pelvic wall hernia. VASCULATURE: Normal. Abdominal aorta is non-dilated. LYMPH NODES: Normal. No enlarged lymph nodes. CT/Abdomen/Pelvis without Cont IMPRESSION: 1. Mild generalized small bowel ileus. 2. Changes of chronic pancreatitis. Electronically Signed: Marquise Mohamud MD at 13:33 EDT ,
--- NOTE | 2022-09-23 11:58 | ED.VIS.GI ---
HPI HPI - GI History of Present Illness Chief Complaint: Abd Pain Detail of Chief Complaint: Abdominal pain Informant: patient Abdominal Pain/Flank Pain Current Severity: 12/04 Narrative Narrative: Patient presents with abdominal pain that started 5 days ago. Patient states pains been intermittent. Patient states pain made worse by eating. She has had nausea. She denies any diarrhea. She has had dry heaves. Patient complained of dysuria. Patient states she had similar pain in the past when she had a UTI or kidney stone or pancreatitis. Patient with no prior abdominal surgeries. [facility] Medical History (Updated 09/23/22 @ 14:[address] Artemio Leal, DO) Anemia Anxiety and depression Apical mural thrombus with acute LA Atherosclerotic heart disease of [place] coronary artery without angina pectoris Cataracts, both eyes Cervical spinal stenosis Chronic neck pain with history of cervical spinal surgery Chronic systolic (congestive) heart failure CKD (chronic kidney disease) stage 3, GFR 30-59 ml/min Closed injury of head COPD (chronic obstructive pulmonary disease) Dermatitis Diabetes mellitus type 2 in nonobese Essential (primary) hypertension Fatigue Headache Hiatal hernia History of peptic ulcer disease History of ST elevation myocardial infarction (STEMI) IBS (irritable bowel syndrome) Insomnia Irritable bowel syndrome with diarrhea Ischemic cardiomyopathy Left ventricular hypertrophy Multiple sclerosis Mural thrombus of heart Nicotine abuse BRYAN (obstructive sleep apnea) Osteoporosis Paroxysmal atrial fibrillation RLS (restless legs syndrome) Takotsubo syndrome Type 2 diabetes mellitus Vitamin B12 deficiency Vitamin deficiency Home Medications modafinil 200 mg tablet 200 mg PO DAILY to stay awake 12/12/19 [History Last Taken 06/06/22] acetaminophen 500 mg tablet 1,000 mg PO TID PRN pain -02/03 #1 TAB 07/29/20 [Rx Last Taken 06/06/22] duloxetine 30 mg capsule,delayed release (Cymbalta) 30 mg PO BID mental health #180 caps 09/20/21 [Rx Last Taken 06/06/22] cholecalciferol (vitamin D3) 125 mcg (5,000 unit) capsule 125 mcg PO DAILY supplement 11/05/21 [History Last Taken 06/06/22] ferrous sulfate 325 mg (65 mg iron) tablet 325 mg PO DAILY supplement 11/05/21 [History Last Taken 06/05/22] potassium chloride 20 mEq tablet,extended release 20 meq PO DAILY PRN take with lasix #90 tabs 12/24/21 [Rx Last Taken Unknown] carvedilol 6.25 mg tablet 6.25 mg PO BID dose reduced while in [facility] 01/14/22 [History Last Taken 06/06/22] isosorbide mononitrate 30 mg tablet,extended release 24 hr 30 mg PO BID heart 01/14/22 [History Last Taken 06/06/22] acidophilus 100 million cell-pectin, citrus 10 mg capsule 1 cap PO DAILY supplement #90 caps 04/01/22 [Rx Last Taken 06/06/22] aspirin 81 mg tablet,delayed release (Adult Aspirin Regimen) 81 mg PO DAILY heart health 04/01/22 [History Last Taken 06/06/22] eluxadoline 100 mg tablet 100 mg PO BID IBS 04/01/22 [History Last Taken 06/06/22] ofatumumab 20 mg/0.4 mL subcutaneous pen injector (Kesimpta Pen) 20 mg subcut QMONTH MS 04/01/22 [History Last Taken 05/06/22] ascorbic acid (vitamin C) 500 mg chewable tablet 500 mg PO DAILY supplement 06/06/22 [History Last Taken 06/06/22] atorvastatin 40 mg tablet 40 mg PO QHS cholesterol 06/06/22 [History Last Taken 06/05/22] dapagliflozin propanediol 10 mg tablet (Farxiga) 10 mg PO QAM DM 06/06/22 [History Last Taken 06/06/22] denosumab 60 mg/mL subcutaneous syringe (Prolia) 60 mg subcut [id number] bone health 06/06/22 [History Last Taken Unknown] acetaminophen 325 mg tablet (Tylenol) 650 mg PO Q6H PRN Pain (Scale Score 4-6) #0 tabs 06/10/22 [Rx Last Taken Unknown] hydrocodone-acetaminophen 5-325mg 5mg-325mg 1 tab PO Q6H PRN PRN Pain Score 1-10 2 days #10 tabs 06/10/22 [Rx Last Taken Unknown] albuterol sulfate 2.5 mg/3 mL (0.083 %) solution for nebulization 2.5 mg (3 mL) inhalation Q8H PRN Dyspnea, wheezing #180 mL 07/21/22 [Rx Last Taken Unknown] benzonatate 200 mg capsule 200 mg PO BID PRN cough #60 caps 07/21/22 [Rx Last Taken Unknown] losartan 50 mg tablet 50 mg PO DAILY #90 tabs 07/24/22 [Rx Last Taken Unknown] blood sugar diagnostic (Accu-Chek Ada Plus test strips) #100 ea 07/29/22 [Rx Last Taken Unknown] semaglutide 0.25 mg or 0.5 mg (2 mg/3 mL) subcutaneous pen injector (Ozempic) 0.5 mg (0.8 mL) subcut QWEEK #3 mL 08/07/22 [Rx Last Taken Unknown] quetiapine 50 mg tablet 50 mg PO QHS mood #30 tabs 08/18/22 [Rx Last Taken Unknown] hydroxyzine HCl 50 mg tablet 50 mg PO BID PRN Itching #60 tabs 09/02/22 [Rx Last Taken Unknown] ondansetron 4 mg disintegrating tablet 4 mg PO Q8H PRN nausea and vomiting #30 tabs 09/02/22 [Rx Last Taken Unknown] pantoprazole 40 mg tablet,delayed release 40 mg PO DAILY gerd #90 tabs 09/04/22 [Rx Last Taken Unknown] apixaban 5 mg tablet (Eliquis) 5 mg PO BID #180 tabs 09/11/22 [Rx Last Taken Unknown] calcium carbonate 600 mg calcium (1,500 mg) tablet (Calcium) 600 mg PO DAILY 09/11/22 [History Last Taken Unknown] dicyclomine 20 mg tablet 20 mg PO BID PRN abdominal pain 09/11/22 [History Last Taken Unknown] donepezil 10 mg tablet 20 mg PO .QLunch 09/11/22 [History Last Taken Unknown] furosemide 20 mg tablet (Lasix) 20 mg PO DAILY PRN edema 09/11/22 [History Last Taken Unknown] insulin lispro 100 unit/mL subcutaneous pen 1 sliding scale dose subcut QAC 09/11/22 [History Last Taken Unknown] multivitamin 1 tab PO DAILY 09/11/22 [History Last Taken Unknown] nitroglycerin 0.4 mg sublingual tablet 0.4 mg sublingual Q5-15M #25 tabs 09/11/22 [Rx Last Taken Unknown] pioglitazone 30 mg tablet 30 mg PO DAILY diabetes 09/11/22 [History Last Taken Unknown] hydrocortisone 2.5 % topical cream 1 applic topical BID PRN skin irritation #454 grams 09/12/22 [Rx Last Taken Unknown] ofatumumab 20 mg/0.4 mL subcutaneous pen injector (Kesimpta Pen) 20 mg subcut QMONTH 09/12/22 [History Last Taken Unknown] ropinirole 2 mg tablet 2 mg PO QHS restless leg 09/12/22 [History Last Taken Unknown] sucralfate 1 gram tablet 1 g PO 4X/DAY PRN reflux #180 tabs 09/12/22 [Rx Last Taken Unknown] phenazopyridine 200 mg tablet (Pyridium) 200 mg PO TID #10 tabs 09/23/22 [Rx Last Taken Unknown] sulfamethoxazole 800 mg-trimethoprim 160 mg tablet 1 tab PO BID #14 TABLETS 09/23/22 [Rx Last Taken Unknown] Allergy/AdvReac Type Severity Reaction Status Date / Time indomethacin [From Indocin] Allergy Hives Verified 09/23/22 11:47 indomethacin sodium Allergy Hives Verified 09/23/22 11:47 [From Indocin] iodine Allergy Hives Verified 09/23/22 11:47 propoxyphene napsylate Allergy Out of Verified 09/23/22 11:47 [From Darvocet-N] control trazodone AdvReac Intermediate Other Verified 09/23/22 11:47 aripiprazole [From Abilify] AdvReac Other Verified 09/23/22 11:47 aspirin AdvReac Upset Verified 09/23/22 11:47 Stomach clindamycin AdvReac Nausea Verified 09/23/22 11:47 metformin AdvReac Other Verified 09/23/22 11:47 sumatriptan [From Imitrex] AdvReac Vomiting Verified 09/23/22 11:47 Family History Father Cancer Lung cancer Mother Cancer Pancreatic cancer Surgical History History of amputation of left great toe History of back surgery History of cervical discectomy History of coronary artery stent placement (04/08/16) History of endoscopy History of left heart catheterization (09/25/20) History of left knee surgery History of loop recorder (06/2014) History of tonsillectomy and adenoidectomy Hx of bilateral cataract extraction (~03/2022) Social History household members: none Smoking Status: Current every day smoker tobacco type: cigarettes alcohol intake: never substance use type: does not use caffeine: Yes Type: coffee Number of servings: 1 what type of physical activity do you participate in: none and other details: Physical Therapy ROS ROS ED Review of Systems ROS Unobtainable: other Constitutional Constitutional ED: Reports lethargy; Denies chills, fever(s), sweats or weight loss Eyes Eyes: Denies blurry vision, change in vision or diplopia ENT ENT ED: Denies rhinorrhea or sore throat Cardiovascular Cardiovascular: Denies chest pain, orthopnea or racing heartbeat Respiratory/Chest Respiratory/Chest: Denies cough, dyspnea, dyspnea on exertion, orthopnea or sputum Gastrointestinal Gastrointestinal: Reports abdominal pain; Denies diarrhea, nausea or vomiting Genitourinary Genitourinary ED: Reports dysuria and urinary frequency; Denies hematuria Musculoskeletal Musculoskeletal: Denies arthralgias, back pain, myalgias or neck pain Integumentary Denies abscess, Abrasions or rash Neurologic Neurologic: Denies headache(s) or weakness Psychiatric Psychiatric: Denies anxiety, depression or suicidal thoughts Endocrine Endocrinology: Denies polydipsia, polyphagia or polyuria Hematologic/Lymphatic Hematologic/Lymphatic: Denies easy bleeding, easy bruising or lymphadenopathy Allergic/Immunologic Allergic/Immunologic ED: Denies mouth swelling, tongue swelling or urticaria EXAM Physical Exam Const Vital Signs: 09/23/22 11:48 Temperature 97.4 F L Temperature Source Temporal Pulse Rate 58 L Respiratory Rate 16 Blood Pressure 117/82 H Blood Pressure Mean 93 Pulse Ox 97 Oxygen Delivery Method Room Air Positive well nourished and well developed General Appearance ED: well developed and NAD HEENT Reports TM's clear and moist mucous membranes normocephalic and atraumatic; Negative for trauma or tenderness Tympanic Membrane ED: Yes TM's clear Eyes PERRL and EOMs intact bilaterally General Eye ED: Negative for pale conjunctiva or scleral icterus Neck no lymphadenopathy, supple and no JVD General: Negative for tenderness Chest Wall inspection of chest normal and palpation of chest normal Chest: Negative for tenderness Resp normal respiratory effort and clear to auscultation bilaterally Effort and Inspection: Negative for respiratory distress or pain with movement Auscultation: Negative for rhonchi, wheezes or diminished lung sounds Cardio regular rate, regular rhythm, S1 normal heart sound, S2 normal heart sound and no murmurs Peripheral Pulses: pulses 2+ throughout GI normal to inspection, nondistended, normoactive bowel sounds, soft to palpation, non-distended and no masses GI Narrative: Patient with diffuse tenderness on exam. There are some mild guarding. There is no rebound, rigidity, or pedal signs. No mass palpated. Back/Spine no CVA tenderness and no thoracic nor lumbar tenderness Extremity normal to inspection General Extremety ED: Negative for edema General Extremity: Negative for edema Neuro oriented x3, CN's II-XII intact bilaterally, no sensory deficits noted and gait normal Sensorium / Orientation: awake, alert, oriented to person, oriented to place and oriented to time Motor Exam: strength 5/5 throughout and strength abnormal Psych mental status grossly normal Skin no rashes or lesions noted and no wounds MDM MDM MDM Narrative Medical decision making narrative: Presents with abdominal pain x5 days. She is got a history of pancreatitis and history of kidney stones and UTIs. Patient has not been febrile. IV line established on arrival. CBC with differential obtained showed a white count of 7.2 with a hemoglobin of 15.8 and platelet count of 169. Chemistries unremarkable lactate normal. LFTs normal. Lipase was normal at 36. Urinalysis positive for 500 leukocyte Estrace as well as +2 bacteria but only 5-10 WBCs. Urine culture was sent. Because the patient is symptomatic I will go ahead and treat her with Bactrim and Azo. CT scan of the abdomen pelvis showed sequela of chronic pancreatitis and nonspecific ileus otherwise no acute process. Patient was medicated with morphine and Zofran in the department and she felt improved. At this point she will be discharged to home with diagnosis of abdominal pain and UTI. Patient given a prescription for Azo as well as Bactrim. She has Zofran at home. Patient advised to follow-up with her primary care physician within next 3 to 5 days. Patient advised to return if worsening pain, fever, vomiting, dehydration, or condition should worsen anyway. Lab Data Attestation: I reviewed the patient's lab results. Labs: Laboratory Results - last 24 hr 09/23/22 09/23/22 09/23/22 11:55 11:55 12:05 WBC 7.2 RBC 5.14 Hgb 15.8 H Hct 48.6 H MCV 94.6 MCH 30.7 MCHC 32.5 RDW Std Deviation 46.5 H RDW Coeff of Yeimi 13.3 Plt Count 169 MPV 10.0 Immature Gran % (Auto) 0.700 Neut % (Auto) 60.9 Lymph % (Auto) 25.7 [place] % (Auto) 8.6 Eos % (Auto) 3.1 Baso % (Auto) 1.0 Absolute Neuts (auto) 4.4 Absolute Lymphs (auto) 1.85 Nucleated RBC % 0 Sodium Cancelled Potassium Cancelled Chloride Cancelled Carbon Dioxide Cancelled Anion Gap Cancelled BUN Cancelled Creatinine Cancelled Estim Creat Clear Calc Cancelled Est GFR (MDRD) Af Amer Cancelled Est GFR (MDRD) Non-Af Cancelled BUN/Creatinine Ratio Cancelled Glucose Cancelled Lactic Acid Cancelled Calcium Cancelled Total Bilirubin Cancelled AST Cancelled ALT Cancelled Alkaline Phosphatase Cancelled Troponin I High Sens Cancelled Total Protein Cancelled Albumin Cancelled Globulin Cancelled Albumin/Globulin Ratio Cancelled Lipase Cancelled Urine Color Urine Clarity Urine pH Ur Specific [place] Urine Protein Urine Glucose (UA) Urine Ketones Urine Occult Blood Urine Nitrite Urine Bilirubin Urine Urobilinogen Ur Leukocyte Esterase Urine RBC Urine WBC Ur Squamous Epith Cells Urine Bacteria Urine Mucus 09/23/22 09/23/22 09/23/22 12:15 12:53 12:53 WBC RBC Hgb Hct MCV MCH MCHC RDW Std Deviation RDW Coeff of [place] Plt Count MPV Immature Gran % (Auto) Neut % (Auto) Lymph % (Auto) [place] % (Auto) Eos % (Auto) Baso % (Auto) Absolute Neuts (auto) Absolute Lymphs (auto) Nucleated RBC % Sodium 136 Potassium 3.8 Chloride 107 Carbon Dioxide 21.0 Anion Gap 8 BUN 13 Creatinine 0.66 Estim Creat Clear Calc 43.18 Est GFR (MDRD) Af Amer 114 Est GFR (MDRD) Non-Af 95 BUN/Creatinine Ratio 19.7 Glucose 164 H Lactic Acid 1.1 Calcium 9.2 Total Bilirubin 0.40 AST 19 ALT 16 Alkaline Phosphatase 64 Troponin I High Sens 11 Total Protein 6.3 L Albumin 3.3 Globulin 3.0 Albumin/Globulin Ratio 1.1 Lipase 36 Urine Color Yellow Urine Clarity Clear Urine pH 6.5 Ur Specific [place] 1.010 Urine Protein 15 H Urine Glucose (UA) 1000 H Urine Ketones Negative Urine Occult Blood 10 H Urine Nitrite Negative Urine Bilirubin Negative Urine Urobilinogen Normal Ur Leukocyte Esterase 500 H Urine RBC 0-5 SEEN Urine WBC 5-10 SEEN Ur Squamous Epith Cells 0-5 SEEN Urine Bacteria 2+ Urine Mucus 1+ Radiography Diagnostic Testing: Clinical Impression(s) from Imaging Studies Abdomen/Pelvis CT 09/23/22 11:57 IMPRESSION: 1. Mild generalized small bowel ileus. 2. Changes of chronic pancreatitis. Electronically Signed: Marquise Mohamud MD at 13:33 EDT , EKG Initial EKG: Attestation: I personally reviewed and interpreted this EKG as follows: Comments: Sinus rhythm with a rate of [address] changes Discharge Plan Triage Chief Complaint: Abd Pain ED Provider: Artemio Leal Dx/Rx/DC Orders Clinical Impression: Abdominal pain, Acute UTI Instructions: ED Abdominal Pain Unkn Cause Fem, ED Cystitis Female Adult Prescriptions: New phenazopyridine [Pyridium] 200 mg tablet 200 mg PO TID Qty: 10 0RF sulfamethoxazole-trimethoprim [sulfamethoxazole-trimethoprim] 800-160 mg tablet 1 tab PO BID Qty: 14 0RF No Action duloxetine [Cymbalta] 30 mg capsule,delayed release(DR/EC) 30 mg PO BID Qty: 180 2RF cholecalciferol (vitamin D3) 125 mcg (5,000 unit) capsule 125 mcg PO DAILY ferrous sulfate 325 mg (65 mg iron) tablet 325 mg PO DAILY isosorbide mononitrate 30 mg tablet extended release 24 hr 30 mg PO BID eluxadoline 100 mg tablet 100 mg PO BID potassium chloride 20 mEq tablet extended release 20 meq PO DAILY PRN (Reason: take with lasix) Qty: 90 1RF carvedilol 6.25 mg tablet 6.25 mg PO BID Rx Instructions: must administer with a meal/food aspirin [Adult Aspirin Regimen] 81 mg tablet,delayed release (DR/EC) 81 mg PO DAILY Kesimpta Pen 20 mg/0.4 mL pen injector 20 mg subcut QMONTH Rx Instructions: begin at Week 4 of therapy acidophilus-pectin, citrus 100 million cell-10 mg capsule 1 cap PO DAILY Qty: 90 3RF donepezil 10 mg tablet 20 mg PO .QLunch pioglitazone 30 mg tablet 30 mg PO DAILY insulin lispro 100 unit/mL insulin pen 1 sliding scale dose subcut QA Label Comments: Use with meals based on PRE meal blood sugar SLIDING SCALE as needed #1 (1 unit for every 50 over 150) Max 20 units daily. multivitamin Tablet 1 tab PO DAILY calcium carbonate [Calcium 600] 600 mg calcium (1,500 mg) tablet 600 mg PO DAILY furosemide [Lasix] 20 mg tablet 20 mg PO DAILY PRN (Reason: edema) dicyclomine 20 mg tablet 20 mg PO BID PRN (Reason: abdominal pain) Label Comments: TAKE 1 TABLET BY MOUTH TWICE DAILY NEEDED FOR ABDOMINAL DISCOMFORT Eliquis 5 mg tablet 5 mg PO BID Qty: 180 3RF nitroglycerin 0.4 mg tablet, sublingual 0.4 mg sublingual Q5-15M Qty: 25 3RF quetiapine 50 mg tablet 50 mg PO QHS Qty: 30 2RF albuterol sulfate 2.5 mg /3 mL (0.083 %) solution for nebulization 2.5 mg inhalation Q8H PRN (Reason: Dyspnea, wheezing) Qty: 180 0RF benzonatate 200 mg capsule 200 mg PO BID PRN (Reason: cough) Qty: 60 0RF Kesimpta Pen 20 mg/0.4 mL pen injector 20 mg subcut QMONTH Rx Instructions: begin at Week 4 of therapy hydrocortisone 2.5 % cream 1 applic topical BID PRN (Reason: skin irritation) Qty: 454 1RF sucralfate 1 gram tablet 1 g PO 4X/DAY PRN (Reason: reflux) Qty: 180 1RF modafinil 200 MG tablet 200 mg PO DAILY acetaminophen 500 MG tablet 1,000 mg PO TID PRN (Reason: pain 1-10/10) Qty: 1 0RF Rx Instructions: alternate with ibuprofen atorvastatin 40 mg tablet 40 mg PO QHS ascorbic acid (vitamin C) 500 mg tablet,chewable 500 mg PO DAILY Prolia 60 mg/mL syringe 60 mg subcut [id number] Farxiga 10 mg tablet 10 mg PO QAM hydrocodone-acetaminophen 5-325 mg Tablet 1 tab PO Q6H PRN PRN (Reason: Pain Score 1-10) 2 Days Qty: 10 0RF acetaminophen [Tylenol] 325 mg Tablet 650 mg PO Q6H PRN (Reason: Pain (Scale Score 4-6)) Qty: 0 0RF ropinirole 2 mg tablet 2 mg PO QHS Label Comments: 1mg in afternoon, 2mg at night Rx Instructions: administer 1-3 hours before bedtime losartan 50 mg tablet 50 mg PO DAILY Qty: 90 3RF (DME) Accu-Chek Ada Plus test strp Strip See Rx Instructions .Route Qty: 100 6RF Rx Instructions: As directed Ozempic 0.25 mg or 0.5 mg (2 mg/3 mL) pen injector 0.5 mg subcut QWEEK Qty: 3 1RF Rx Instructions: for 4 weeks, then .5 mg weekly hydroxyzine HCl 50 mg tablet 50 mg PO BID PRN (Reason: Itching) Qty: 60 2RF ondansetron 4 mg tablet,disintegrating 4 mg PO Q8H PRN (Reason: nausea and vomiting) Qty: 30 1RF pantoprazole 40 mg tablet,delayed release (DR/EC) 40 mg PO DAILY Qty: 90 1RF Primary Care Provider: Carlton Rocha NP Referrals: Carlton Rocha NP, [employer] [Primary Care Provider] - 3-5 Days Disposition Disposition: Home, Self Care
--- NOTE | 2022-09-23 11:58 | CM.ED ---
Social Work Referral Source: case find Referral Reason: care plan SW reviewed patient's chart and provided a copy of patient's care plan to MD Leal to review possible obstacles and solutions regarding care for patient. MD reports understanding and will consult with SW if needs arise. Montserrat Celeste MSW, DANIEL
[2022-09-23 12:11] LABS: Absolute Lymphocyte Count 1.85 X10^3/uL (0.83-4.51); Absolute Neutrophil Count 4.4 X10^3/uL (2.0-7.7); Basophil# 0.07 X10^3/uL; Eosinophil# 0.22 X10^3/uL; Eosinophils% 3.1 % (0-5); Hematocrit 48.6 % (37-47); Hemoglobin 15.8 g/dL (12.0-15.0); Lymphocyte # 1.85 X10^3/ul (0.83-4.51); Lymphocyte % 25.7 % (19-41); Mean Corp Hgb Conc 32.5 g/dL (32-36); Mean Corpuscular Hgb 30.7 pg (27.0-32.0); Mean Corpuscular Volume 94.6 fL (81-99); Monocyte# 0.62 X10^3/uL; Monocyte% 8.6 % (0-10); NRBC Flagged by Analyzer 0 % (0-5); Neutrophil # 4.38 X10^3/uL (2.7-7.7); Neutrophil % 60.9 % (47-70); Platelet Count 169 K/mm3 (150-450); RBC Distribution Width CV 13.3 % (11.6-14.6); RBC Distribution Width SD 46.5 fl (35.1-43.9); Red Blood Count 5.14 M/mm3 (4.2-5.4); White Blood Count 7.2 K/mm3 (4.4-11.0)
[2022-09-23] MEDS: Ondansetron 4 MG/2 ML Vial IV (12:12)
[2022-09-23] MEDS: Morphine 4 MG/ML Syringe IV (12:12)
[2022-09-23] MEDS: 0.9% Normal Saline 1,000 ML 125 ML IV (12:13)
--- NOTE | 2022-09-23 12:20 | ED.RN ---
pt crying in bed. states her care plan is [address] flores. pt offered medication
[2022-09-23 12:43] LABS: Color, Urine Yellow (Yellow); Glucose, Dipstick 1000 mg/dl (Normal); Ketone-Dipstick Negative (Negative); Leukocyte Esterase-Dipstick 500 /ul (Negative); Nitrite-Dipstick Negative (Negative); Occult Blood-Urine 10 /ul (Negative); Protein-Dipstick 15 mg/dl (Negative); Urine Bilirubin Dipstick Negative (Negative); Urine Clarity Clear (Clear); Urine Urobilinogen Normal (Normal); Urine pH 6.5 (5.0 - 8.0)
[2022-09-23 12:53] LABS: Bacteria 2+ /hpf (None Seen); Mucous, Urine 1+ /hpf (<or=2+); Red Blood Cells-Urine 0-5 SEEN /hpf (0-5); Squamous Epithelial Cells - UA 0-5 SEEN /hpf (5-10); White Blood Cells 5-10 SEEN /hpf (0-5)
[2022-09-23] MEDS: hydrOXYzine 50 MG/ML Vial 25 MG IM (13:28)
[2022-09-23 13:30] LABS: ALB/GLOB Ratio 1.1 RATIO (0.9-2.4); AST(SGOT) 19 U/L (15-37); Alanine Aminotransfer ALT/SGPT 16 U/L (13-56); Albumin, Serum 3.3 g/dL (3.2-5.0); Alkaline Phosphatase 64 U/L (45-117); Anion Gap 8 (5-15); BUN 13 mg/dL (7-18); BUN/Creat Ratio 19.7 RATIO (10-20); Calcium,Total 9.2 mg/dL (8.5-10.1); Chloride 107 mmol/L (98-107); Creatinine, Serum 0.66 mg/dL (0.55-1.02); EST Glomerular Filtration Rate 95 mL/min (>60); Est Glom Filt Rate - Afr Amer 114 mL/min (>60); Estimated Creatinine Clearance 43.18 ml/min; Glucose 164 mg/dL (74-106); Lactic Acid 1.1 mmol/L (0.4-1.9); Lipase 36 U/L (13-75); Potassium 3.8 mmol/L (3.5-5.1); Protein, Total 6.3 g/dL (6.4-8.2); Sodium Level 136 mmol/L (136-145); Troponin-I HS 11 pg/mL (3.0-54.0)
[2022-09-23] MEDS: Smz/Tmp Ds Tablet 1 TABLET PO (14:28)
[2022-09-23] MEDS: Phenazopyridine 95 MG Tablet 190 MG PO (14:28)
[2022-09-23 14:45] VITALS: BP 113/86
== END 2022-09-23 14:48 | disposition home or self-care (01) ==
PROVIDERS: Emergency Provider Emergency Medicine; PCP Nurse Practitioner Family; Visit Provider Emergency Medicine
DX: N39.0 Urinary tract infection, site not specified (principal); J44.9 Chronic obstructive pulmonary disease, unspecified; I50.22 Chronic systolic (congestive) heart failure; I13.0 Hypertensive heart and chronic kidney disease with heart failure and stage 1 through stage 4 chronic kidney disease, or unspecified chronic kidney disease; E11.22 Type 2 diabetes mellitus with diabetic chronic kidney disease; Z79.4 Long term (current) use of insulin; N18.30 Chronic kidney disease, stage 3 unspecified; I25.10 Atherosclerotic heart disease of native coronary artery without angina pectoris; I25.2 Old myocardial infarction; F17.210 Nicotine dependence, cigarettes, uncomplicated; Z95.5 Presence of coronary angioplasty implant and graft; Z79.82 Long term (current) use of aspirin; Z79.84 Long term (current) use of oral hypoglycemic drugs; Z79.85 Long-term (current) use of injectable non-insulin antidiabetic drugs; Z79.899 Other long term (current) drug therapy
CPT/HCPCS: 74176; 80053; 81001; 83605; 83690; 84484; 85025; 87086; 87088; 93005; 96361; 96372; 96374; 96375; 99285; J7030; A4216; J2405

== ENCOUNTER → 2022-10-03 | Outpatient (CLI) | payer MEDICARE, MEDICAID, SELFPAY ==
[2016-07-13 11:45] VITALS: BMI 31.4
[2022-10-03 09:12] LABS: Bacteria 0 SEEN /hpf (None Seen); Mucous, Urine 0 SEEN /hpf (<or=2+); White Blood Cells 0 SEEN /hpf (0-5)
[2022-10-03 12:34] LABS: Color, Urine Yellow (Yellow); Glucose, Dipstick 1000 mg/dl (Normal); Ketone-Dipstick Negative (Negative); Leukocyte Esterase-Dipstick Negative /ul (Negative); Nitrite-Dipstick Negative (Negative); Occult Blood-Urine 10 /ul (Negative); Protein-Dipstick Negative (Negative); Specific Gravity, Urine 1.015 (1.002-1.030); Urine Bilirubin Dipstick Negative (Negative); Urine Clarity Sl. Cloudy (Clear); Urine Urobilinogen Normal (Normal)
[2022-10-03 12:42] LABS: Red Blood Cells-Urine 0-5 SEEN /hpf (0-5); Squamous Epithelial Cells - UA 0-5 SEEN /hpf (5-10)
== END | disposition home or self-care (01) ==
LOC: LABSPEC 09:02
PROVIDERS: PCP Nurse Practitioner Family; Visit Provider Nurse Practitioner Family
DX: R30.0 Dysuria (principal)
CPT/HCPCS: 81001; 87086; 87088

== ENCOUNTER 2022-10-06 13:46 | Emergency (ER) | payer MEDICARE, MEDICAID, SELFPAY ==
[2016-07-13 11:45] VITALS: BMI 31.4
[2022-10-06 13:47] VITALS: BP 136/60; PULSE 63; RESP 16; TEMP 35.8; O2SAT 99
[2022-10-06 14:52] VITALS: BMI 30.2
[2022-10-06 15:06] LABS: Absolute Lymphocyte Count 1.46 X10^3/uL (0.83-4.51); Absolute Neutrophil Count 7.4 X10^3/uL (2.0-7.7); Eosinophil# 0.19 X10^3/uL; Eosinophils% 1.9 % (0-5); Hematocrit 44.2 % (37-47); Hemoglobin 14.5 g/dL (12.0-15.0); Lymphocyte # 1.46 X10^3/ul (0.83-4.51); Lymphocyte % 14.5 % (19-41); Mean Corp Hgb Conc 32.8 g/dL (32-36); Mean Corpuscular Hgb 31.4 pg (27.0-32.0); Mean Corpuscular Volume 95.7 fL (81-99); Mean Platelet Vol. 9.3 fl (6.2-12.0); Monocyte# 0.82 X10^3/uL; Monocyte% 8.2 % (0-10); NRBC Flagged by Analyzer 0 % (0-5); Neutrophil # 7.43 X10^3/uL (2.7-7.7); Platelet Count 178 K/mm3 (150-450); RBC Distribution Width CV 13.4 % (11.6-14.6); RBC Distribution Width SD 47.8 fl (35.1-43.9); Red Blood Count 4.62 M/mm3 (4.2-5.4)
[2022-10-06 15:15] VITALS: BP 127/61; PULSE 62; RESP 22; TEMP 36.9; O2SAT 96
[2022-10-06 15:26] LABS: ALB/GLOB Ratio 1.2 RATIO (0.9-2.4); AST(SGOT) 11 U/L (15-37); Alanine Aminotransfer ALT/SGPT 18 U/L (13-56); Albumin, Serum 3.3 g/dL (3.2-5.0); Alkaline Phosphatase 75 U/L (45-117); Anion Gap 4 (5-15); BUN 24 mg/dL (7-18); BUN/Creat Ratio 29.9 RATIO (10-20); Calcium,Total 9.1 mg/dL (8.5-10.1); Chloride 113 mmol/L (98-107); EST Glomerular Filtration Rate 75 mL/min (>60); Est Glom Filt Rate - Afr Amer 91 mL/min (>60); Estimated Creatinine Clearance 53.97 ml/min; Globulin 2.8 g/dL (2.2-4.2); Glucose 187 mg/dL (74-106); Potassium 3.8 mmol/L (3.5-5.1); Protein, Total 6.1 g/dL (6.4-8.2); Sodium Level 139 mmol/L (136-145); Troponin-I HS 9 pg/mL (3.0-54.0)
[2022-10-06 15:26] LABS: Bedside Glucose 200 mg/dL (74-106)
--- NOTE | 2022-10-06 15:32 | EDS_ITS ---
HPI History of Present Illness Chief Complaint: Hypoglycemia Narrative Narrative: 66-year-old female presenting with hypoglycemic episodes as well as some nausea. She states she was recently treated for UTI from [facility] emergency room. She states he was put on Bactrim Pyridium. She followed up with Carlton Rocha Thursday for repeat urinalysis but only had a urine culture performed. She states that she called the office today and they do not have the result of her culture. She states she still has urinary symptoms and still feels nauseous. She is concerned for having a UTI. Her blood sugars have been dropping today and if she eats her blood sugar still drops. [facility] Medical History Anemia Anxiety and depression Apical mural thrombus with acute PA Atherosclerotic heart disease of [place] coronary artery without angina pectoris Cataracts, both eyes Cervical spinal stenosis Chronic neck pain with history of cervical spinal surgery Chronic systolic (congestive) heart failure CKD (chronic kidney disease) stage 3, GFR 30-59 ml/min Closed injury of head COPD (chronic obstructive pulmonary disease) Dermatitis Diabetes mellitus type 2 in nonobese Essential (primary) hypertension Fatigue Headache Hiatal hernia History of peptic ulcer disease History of ST elevation myocardial infarction (STEMI) IBS (irritable bowel syndrome) Insomnia Irritable bowel syndrome with diarrhea Ischemic cardiomyopathy Left ventricular hypertrophy Multiple sclerosis Mural thrombus of heart Nicotine abuse BRYAN (obstructive sleep apnea) Osteoporosis Paroxysmal atrial fibrillation RLS (restless legs syndrome) Takotsubo syndrome Type 2 diabetes mellitus Vitamin B12 deficiency Vitamin deficiency Home Medications modafinil 200 mg tablet 200 mg PO DAILY to stay awake 12/12/19 [History Last Taken 06/06/22] acetaminophen 500 mg tablet 1,000 mg PO TID PRN pain -02/03 #1 TAB 07/29/20 [Rx Last Taken 06/06/22] cholecalciferol (vitamin D3) 125 mcg (5,000 unit) capsule 125 mcg PO DAILY supplement 11/05/21 [History Last Taken 06/06/22] ferrous sulfate 325 mg (65 mg iron) tablet 325 mg PO DAILY supplement 11/05/21 [History Last Taken 06/05/22] potassium chloride 20 mEq tablet,extended release 20 meq PO DAILY PRN take with lasix #90 tabs 12/24/21 [Rx Last Taken Unknown] carvedilol 6.25 mg tablet 6.25 mg PO BID dose reduced while in [facility] 01/14/22 [History Last Taken 06/06/22] isosorbide mononitrate 30 mg tablet,extended release 24 hr 30 mg PO BID heart 01/14/22 [History Last Taken 06/06/22] acidophilus 100 million cell-pectin, citrus 10 mg capsule 1 cap PO DAILY supplement #90 caps 04/01/22 [Rx Last Taken 06/06/22] aspirin 81 mg tablet,delayed release (Adult Aspirin Regimen) 81 mg PO DAILY heart health 04/01/22 [History Last Taken 06/06/22] eluxadoline 100 mg tablet 100 mg PO BID IBS 04/01/22 [History Last Taken 06/06/22] ofatumumab 20 mg/0.4 mL subcutaneous pen injector (Kesimpta Pen) 20 mg subcut QMONTH MS 04/01/22 [History Last Taken 05/06/22] ascorbic acid (vitamin C) 500 mg chewable tablet 500 mg PO DAILY supplement 06/06/22 [History Last Taken 06/06/22] atorvastatin 40 mg tablet 40 mg PO QHS cholesterol 06/06/22 [History Last Taken 06/05/22] dapagliflozin propanediol 10 mg tablet (Farxiga) 10 mg PO QAM DM 06/06/22 [History Last Taken 06/06/22] denosumab 60 mg/mL subcutaneous syringe (Prolia) 60 mg subcut [id number] bone health 06/06/22 [History Last Taken Unknown] acetaminophen 325 mg tablet (Tylenol) 650 mg PO Q6H PRN Pain (Scale Score 4-6) #0 tabs 06/10/22 [Rx Last Taken Unknown] hydrocodone-acetaminophen 5-325mg 5mg-325mg 1 tab PO Q6H PRN PRN Pain Score 1-10 2 days #10 tabs 06/10/22 [Rx Last Taken Unknown] albuterol sulfate 2.5 mg/3 mL (0.083 %) solution for nebulization 2.5 mg (3 mL) inhalation Q8H PRN Dyspnea, wheezing #180 mL 07/21/22 [Rx Last Taken Unknown] benzonatate 200 mg capsule 200 mg PO BID PRN cough #60 caps 07/21/22 [Rx Last Taken Unknown] losartan 50 mg tablet 50 mg PO DAILY #90 tabs 07/24/22 [Rx Last Taken Unknown] blood sugar diagnostic (Accu-Chek Ada Plus test strips) #100 ea 07/29/22 [Rx Last Taken Unknown] semaglutide 0.25 mg or 0.5 mg (2 mg/3 mL) subcutaneous pen injector (Ozempic) 0.5 mg (0.8 mL) subcut QWEEK #3 mL 08/07/22 [Rx Last Taken Unknown] quetiapine 50 mg tablet 50 mg PO QHS mood #30 tabs 08/18/22 [Rx Last Taken Unknown] hydroxyzine HCl 50 mg tablet 50 mg PO BID PRN Itching #60 tabs 09/02/22 [Rx Last Taken Unknown] ondansetron 4 mg disintegrating tablet 4 mg PO Q8H PRN nausea and vomiting #30 t abs 09/02/22 [Rx Last Taken Unknown] pantoprazole 40 mg tablet,delayed release 40 mg PO DAILY gerd #90 tabs 09/04/22 [Rx Last Taken Unknown] apixaban 5 mg tablet (Eliquis) 5 mg PO BID #180 tabs 09/11/22 [Rx Last Taken Unknown] calcium carbonate 600 mg calcium (1,500 mg) tablet (Calcium) 600 mg PO DAILY 09/11/22 [History Last Taken Unknown] dicyclomine 20 mg tablet 20 mg PO BID PRN abdominal pain 09/11/22 [History Last Taken Unknown] donepezil 10 mg tablet 20 mg PO .QLunch 09/11/22 [History Last Taken Unknown] furosemide 20 mg tablet (Lasix) 20 mg PO DAILY PRN edema 09/11/22 [History Last Taken Unknown] insulin lispro 100 unit/mL subcutaneous pen 1 sliding scale dose subcut QAC 09/11/22 [History Last Taken Unknown] multivitamin 1 tab PO DAILY 09/11/22 [History Last Taken Unknown] nitroglycerin 0.4 mg sublingual tablet 0.4 mg sublingual Q5-15M #25 tabs 09/11/22 [Rx Last Taken Unknown] pioglitazone 30 mg tablet 30 mg PO DAILY diabetes 09/11/22 [History Last Taken Unknown] hydrocortisone 2.5 % topical cream 1 applic topical BID PRN skin irritation #454 grams 09/12/22 [Rx Last Taken Unknown] ofatumumab 20 mg/0.4 mL subcutaneous pen injector (Kesimpta Pen) 20 mg subcut QMONTH 09/12/22 [History Last Taken Unknown] ropinirole 2 mg tablet 2 mg PO QHS restless leg 09/12/22 [History Last Taken Unknown] phenazopyridine 200 mg tablet (Pyridium) 200 mg PO TID #10 tabs 09/23/22 [Rx Last Taken Unknown] sulfamethoxazole 800 mg-trimethoprim 160 mg tablet 1 tab PO BID #14 TABLETS 09/23/22 [Rx Last Taken Unknown] duloxetine 30 mg capsule,delayed release (Cymbalta) 30 mg PO BID mental health #180 caps 09/30/22 [Rx Last Taken Unknown] sucralfate 1 gram tablet 1 g PO 4X/DAY PRN reflux #180 tabs 10/02/22 [Rx Last Taken Unknown] phenazopyridine 100 mg tablet (Pyridium) 100 mg PO TID PRN pain 6 doses #6 tabs 10/03/22 [Rx Last Taken Unknown] ondansetron 4 mg disintegrating tablet 4 mg PO Q8H PRN PRN Nausea #14 tabs 10/06/22 [Rx Last Taken Unknown] Allergy/AdvReac Type Severity Reaction Status Date / Time indomethacin [From Indocin] Allergy Hives Verified 10/06/22 14:52 indomethacin sodium Allergy Hives Verified 10/06/22 14:52 [From Indocin] iodine Allergy Hives Verified 10/06/22 14:52 propoxyphene napsylate Allergy Out of Verified 10/06/22 14:52 [From Darvocet-N] control trazodone AdvReac Intermediate Other Verified 10/06/22 14:52 aripiprazole [From Abilify] AdvReac Other Verified 10/06/22 14:52 aspirin AdvReac Upset Verified 10/06/22 14:52 Stomach clindamycin AdvReac Nausea Verified 10/06/22 14:52 metformin AdvReac Other Verified 10/06/22 14:52 sumatriptan [From Imitrex] AdvReac Vomiting Verified 10/06/22 14:52 Family History Father Cancer Lung cancer Mother Cancer Pancreatic cancer Surgical History History of amputation of left great toe History of back surgery History of cervical discectomy History of coronary artery stent placement (04/08/16) History of endoscopy History of left heart catheterization (09/25/20) History of left knee surgery History of loop recorder (06/2014) History of tonsillectomy and adenoidectomy Hx of bilateral cataract extraction (~03/2022) Social History household members: none Smoking Status: Current every day smoker tobacco type: cigarettes alcohol intake: never substance use type: does not use caffeine: Yes Type: coffee Number of servings: 1 what type of physical activity do you participate in: none and other details: Physical Therapy ROS ROS ED Constitutional Constitutional ED: Denies chills, fever(s) or sweats Eyes Eyes: Denies blurry vision or change in vision ENT ENT ED: Denies ear pain or sore throat Cardiovascular Cardiovascular: Denies chest pain, palpitations or racing heartbeat Respiratory/Chest Respiratory/Chest: Denies cough, dyspnea or sputum Gastrointestinal Gastrointestinal: Denies abdominal pain, constipation, diarrhea, nausea or vomiting Genitourinary Genitourinary ED: Reports dysuria and hematuria; Denies urinary frequency Musculoskeletal Musculoskeletal: Denies arthralgias, myalgias or neck pain Integumentary Denies abscess, Abrasions or rash Neurologic Neurologic: Denies headache(s), paresthesias or weakness Psychiatric Psychiatric: Denies anxiety, depression, suicidal ideation or suicidal thoughts Endocrine Endocrinology: Denies polydipsia or polyuria EXAM Physical Exam Const Vital Signs: 10/06/22 13:47 10/06/22 14:53 10/06/22 15:15 Temperature 96.5 F L 98.5 F Temperature Source Temporal Oral Pulse Rate 63 62 Respiratory Rate 16 22 H Respiratory Effort Normal Non-Labored Respiratory Pattern Normal Blood Pressure 136/60 H 127/61 H Blood Pressure Mean 85 83 Pulse Ox 99 96 Oxygen Delivery Method Room Air Room Air 10/06/22 16:05 10/06/22 17:03 Temperature 98.7 F 98.7 F Temperature Source Oral Oral Pulse Rate 59 L 69 Respiratory Rate 18 16 Respiratory Effort Respiratory Pattern Blood Pressure 138/70 H 131/58 H Blood Pressure Mean 92 82 Pulse Ox 97 98 Oxygen Delivery Method Room Air Room Air MDM MDM MDM Narrative Medical decision making narrative: Presenting with hypoglycemia. Patient states he had some nausea associated with it. She is on sliding scale insulin, Ozempic weekly, pioglitazone daily, Farxiga daily. Blood sugar. CBC was obtained to assess white blood cell count and hemoglobin has appears to be normal. CMP to assess liver function, renal function, glucose, anion gap. Anion gap is normal. Blood sugars, up to 187. Electrolytes unremarkable. LFTs are normal. Patient is feeling improved. I spoke with the on-call for her physician Dr. Rocha who recommend her calling the office tomorrow to go over her medications. She states she would prefer to call her schedule manager in the morning. I think this is reasonable. She was given a prescription for Zofran at her request. She is discharged home in stable condition. Impression: 1. Nausea 2. Hypoglycemia Lab Data Labs: Laboratory Results - last 24 hr 10/06/22 10/06/22 10/06/22 14:53 14:53 15:08 WBC 10.0 RBC 4.62 Hgb 14.5 Hct 44.2 MCV 95.7 MCH 31.4 MCHC 32.8 RDW Std Deviation 47.8 H RDW Coeff of [place] 13.4 Plt Count 178 MPV 9.3 Immature Gran % (Auto) 0.400 Neut % (Auto) 74.0 H Lymph % (Auto) 14.5 L [place] % (Auto) 8.2 Eos % (Auto) 1.9 Baso % (Auto) 1.0 Absolute Neuts (auto) 7.4 Absolute Lymphs (auto) 1.46 Nucleated RBC % 0 Sodium 139 Potassium 3.8 Chloride 113 H Carbon Dioxide 22.0 Anion Gap 4 L BUN 24 H Creatinine 0.80 Estim Creat Clear Calc 53.97 Est GFR (MDRD) Af Amer 91 Est GFR (MDRD) Non-Af 75 BUN/Creatinine Ratio 29.9 H Glucose 187 H Calcium 9.1 Total Bilirubin 0.40 AST 11 L ALT 18 Alkaline Phosphatase 75 Troponin I High Sens 9 Total Protein 6.1 L Albumin 3.3 Globulin 2.8 Albumin/Globulin Ratio 1.2 Urine Color Urine Clarity Urine pH Ur Specific Crary Urine Protein Urine Glucose (UA) Urine Ketones Urine Occult Blood Urine Nitrite Urine Bilirubin Urine Urobilinogen Ur Leukocyte Esterase Urine RBC Urine WBC Ur Squamous Epith Cells Urine Bacteria Urine Mucus POC Glucose 200 H 10/06/22 15:40 WBC RBC Hgb Hct MCV MCH MCHC RDW Std Deviation RDW Coeff of Yeimi Plt Count MPV Immature Gran % (Auto) Neut % (Auto) Lymph % (Auto) [place] % (Auto) Eos % (Auto) Baso % (Auto) Absolute Neuts (auto) Absolute Lymphs (auto) Nucleated RBC % Sodium Potassium Chloride Carbon Dioxide Anion Gap BUN Creatinine Estim Creat Clear Calc Est GFR (MDRD) Af Amer Est GFR (MDRD) Non-Af BUN/Creatinine Ratio Glucose Calcium Total Bilirubin AST ALT Alkaline Phosphatase Troponin I High Sens Total Protein Albumin Globulin Albumin/Globulin Ratio Urine Color Yellow Urine Clarity Clear Urine pH 6.0 Ur Specific Crary 1.015 Urine Protein Negative Urine Glucose (UA) 1000 H Urine Ketones Negative Urine Occult Blood Negative Urine Nitrite Negative Urine Bilirubin Negative Urine Urobilinogen 1 H Ur Leukocyte Esterase 25 H Urine RBC 0 SEEN Urine WBC 0-5 SEEN Ur Squamous Epith Cells 0-5 SEEN Urine Bacteria RARE Urine Mucus 0 SEEN POC Glucose Discharge Plan Triage Chief Complaint: Hypoglycemia ED Provider: Yosef Lugo Dx/Rx/DC Orders Instructions: ED Diabetic Insulin Reaction Prescriptions: New ondansetron 4 mg tablet,disintegrating 4 mg PO Q8H PRN PRN (Reason: Nausea) Qty: 14 0RF No Action cholecalciferol (vitamin D3) 125 mcg (5,000 unit) capsule 125 mcg PO DAILY ferrous sulfate 325 mg (65 mg iron) tablet 325 mg PO DAILY isosorbide mononitrate 30 mg tablet extended release 24 hr 30 mg PO BID eluxadoline 100 mg tablet 100 mg PO BID potassium chloride 20 mEq tablet extended release 20 meq PO DAILY PRN (Reason: take with lasix) Qty: 90 1RF carvedilol 6.25 mg tablet 6.25 mg PO BID Rx Instructions: must administer with a meal/food aspirin [Adult Aspirin Regimen] 81 mg tablet,delayed release (DR/EC) 81 mg PO DAILY Kesimpta Pen 20 mg/0.4 mL pen injector 20 mg subcut QMONTH Rx Instructions: begin at Week 4 of therapy acidophilus-pectin, citrus 100 million cell-10 mg capsule 1 cap PO DAILY Qty: 90 3RF donepezil 10 mg tablet 20 mg PO .QLunch pioglitazone 30 mg tablet 30 mg PO DAILY insulin lispro 100 unit/mL insulin pen 1 sliding scale dose subcut QAC Label Comments: Use with meals based on PRE meal blood sugar SLIDING SCALE as needed #1 (1 unit for every 50 over 150) Max 20 units daily. multivitamin Tablet 1 tab PO DAILY calcium carbonate [Calcium 600] 600 mg calcium (1,500 mg) tablet 600 mg PO DAILY furosemide [Lasix] 20 mg tablet 20 mg PO DAILY PRN (Reason: edema) dicyclomine 20 mg tablet 20 mg PO BID PRN (Reason: abdominal pain) Label Comments: TAKE 1 TABLET BY MOUTH TWICE DAILY NEEDED FOR ABDOMINAL DISCOMFORT Eliquis 5 mg tablet 5 mg PO BID Qty: 180 3RF nitroglycerin 0.4 mg tablet, sublingual 0.4 mg sublingual Q5-15M Qty: 25 3RF quetiapine 50 mg tablet 50 mg PO QHS Qty: 30 2RF albuterol sulfate 2.5 mg /3 mL (0.083 %) solution for nebulization 2.5 mg inhalation Q8H PRN (Reason: Dyspnea, wheezing) Qty: 180 0RF benzonatate 200 mg capsule 200 mg PO BID PRN (Reason: cough) Qty: 60 0RF Kesimpta Pen 20 mg/0.4 mL pen injector 20 mg subcut QMONTH Rx Instructions: begin at Week 4 of therapy hydrocortisone 2.5 % cream 1 applic topical BID PRN (Reason: skin irritation) Qty: 454 1RF modafinil 200 MG tablet 200 mg PO DAILY acetaminophen 500 MG tablet 1,000 mg PO TID PRN (Reason: pain 1-10/10) Qty: 1 0RF Rx Instructions: alternate with ibuprofen atorvastatin 40 mg tablet 40 mg PO QHS ascorbic acid (vitamin C) 500 mg tablet,chewable 500 mg PO DAILY Prolia 60 mg/mL syringe 60 mg subcut [id number] Farxiga 10 mg tablet 10 mg PO QAM hydrocodone-acetaminophen 5-325 mg Tablet 1 tab PO Q6H PRN PRN (Reason: Pain Score 1-10) 2 Days Qty: 10 0RF acetaminophen [Tylenol] 325 mg Tablet 650 mg PO Q6H PRN (Reason: Pain (Scale Score 4-6)) Qty: 0 0RF ropinirole 2 mg tablet 2 mg PO QHS Label Comments: 1mg in afternoon, 2mg at night Rx Instructions: administer 1-3 hours before bedtime phenazopyridine [Pyridium] 200 mg tablet 200 mg PO TID Qty: 10 0RF sulfamethoxazole-trimethoprim [sulfamethoxazole-trimethoprim] 800-160 mg tablet 1 tab PO BID Qty: 14 0RF losartan 50 mg tablet 50 mg PO DAILY Qty: 90 3RF (DME) Accu-Chek Ada Plus test strp Strip See Rx Instructions .Route Qty: 100 6RF Rx Instructions: As directed Ozempic 0.25 mg or 0.5 mg (2 mg/3 mL) pen injector 0.5 mg subcut QWEEK Qty: 3 1RF Rx Instructions: for 4 weeks, then .5 mg weekly hydroxyzine HCl 50 mg tablet 50 mg PO BID PRN (Reason: Itching) Qty: 60 2RF ondansetron 4 mg tablet,disintegrating 4 mg PO Q8H PRN (Reason: nausea and vomiting) Qty: 30 1RF pantoprazole 40 mg tablet,delayed release (DR/EC) 40 mg PO DAILY Qty: 90 1RF duloxetine [Cymbalta] 30 mg capsule,delayed release(DR/EC) 30 mg PO BID Qty: 180 2RF sucralfate 1 gram tablet 1 g PO 4X/DAY PRN (Reason: reflux) Qty: 180 1RF phenazopyridine [Pyridium] 100 mg tablet 100 mg PO TID PRN (Reason: pain) Qty: 6 0RF Primary Care Provider: Carlton Rocha NP Referrals: Carlton Rocha NP, [employer] [Primary Care Provider] - Disposition Disposition: Home, Self Care
[2022-10-06 15:49] LABS: Mucous, Urine 0 SEEN /hpf (<or=2+); Red Blood Cells-Urine 0 SEEN /hpf (0-5)
[2022-10-06 15:53] LABS: Color, Urine Yellow (Yellow); Glucose, Dipstick 1000 mg/dl (Normal); Ketone-Dipstick Negative (Negative); Leukocyte Esterase-Dipstick 25 /ul (Negative); Nitrite-Dipstick Negative (Negative); Occult Blood-Urine Negative /ul (Negative); Protein-Dipstick Negative (Negative); Specific Gravity, Urine 1.015 (1.002-1.030); Urine Bilirubin Dipstick Negative (Negative); Urine Clarity Clear (Clear); Urine Urobilinogen 1 mg/dl (Normal)
[2022-10-06 16:05] VITALS: BP 138/70; PULSE 59; RESP 18; TEMP 37.1; O2SAT 97
[2022-10-06 16:05] LABS: Bacteria RARE /hpf (None Seen); Squamous Epithelial Cells - UA 0-5 SEEN /hpf (5-10); White Blood Cells 0-5 SEEN /hpf (0-5)
[2022-10-06] MEDS: 0.9% Normal Saline 1,000 ML 999 ML IV (16:08)
[2022-10-06] MEDS: Ondansetron 4 MG/2 ML Vial IV (16:08)
[2022-10-06 17:03] VITALS: BP 131/58; PULSE 69; RESP 16; TEMP 37.1; O2SAT 98
[2022-10-06 17:11] VITALS: BP 131/58; PULSE 62; RESP 15; O2SAT 98
== END 2022-10-06 17:15 | disposition home or self-care (01) ==
PROVIDERS: Emergency Provider Student in an Organized Health Care Education/Training Program; PCP Nurse Practitioner Family; Visit Provider Student in an Organized Health Care Education/Training Program
DX: E11.649 Type 2 diabetes mellitus with hypoglycemia without coma (principal); G35 Multiple sclerosis; J44.9 Chronic obstructive pulmonary disease, unspecified; I13.0 Hypertensive heart and chronic kidney disease with heart failure and stage 1 through stage 4 chronic kidney disease, or unspecified chronic kidney disease; I50.22 Chronic systolic (congestive) heart failure; E11.22 Type 2 diabetes mellitus with diabetic chronic kidney disease; I48.0 Paroxysmal atrial fibrillation; Z79.4 Long term (current) use of insulin; N18.30 Chronic kidney disease, stage 3 unspecified; I25.10 Atherosclerotic heart disease of native coronary artery without angina pectoris; I25.2 Old myocardial infarction; F17.210 Nicotine dependence, cigarettes, uncomplicated; Z95.5 Presence of coronary angioplasty implant and graft; Z79.84 Long term (current) use of oral hypoglycemic drugs; Z79.899 Other long term (current) drug therapy
CPT/HCPCS: 80053; 81001; 82962; 84484; 85025; 96361; 96374; 99284; J2405

== ENCOUNTER 2022-11-24 10:17 | Emergency (ER) | payer MEDICARE, MEDICAID, SELFPAY ==
[2016-07-13 11:45] VITALS: BMI 31.4
[2022-11-24 10:20] VITALS: BP 188/63; PULSE 69; RESP 17; TEMP 36.3; O2SAT 93; BMI 28.3
--- NOTE | 2022-11-24 11:11 | EX.ED.DYSGE1 ---
HPI History of Present Illness Chief Complaint: Weakness Narrative Narrative: Patient presenting with generalized weakness. She states that she has been being treated for MS with steroids for the last week and a half. Since she started the steroid she started having diarrhea. She states that very liquidy. She states she does not have any nausea really but does not want to eat because every time she eats she gets some abdominal discomfort starts having diarrhea. She has not had a fever. She is making urine. Patient states that she has had some associated visual changes in the left eye due to the MS flare which was known to the neurologist when she was seen and she states it is getting worse. In addition to the diarrhea she states that her blood sugars have been in the 250 range and she has been on the steroids. Patient is on Eliquis but she denies any head injury. She states she does have decreased sensation in the left side of her face and in her left arm for about a week. She states she feels her speech is a little bit slurred. [facility] Medical History Anemia Anxiety and depression Apical mural thrombus with acute SC Atherosclerotic heart disease of [place] coronary artery without angina pectoris Cataracts, both eyes Cervical spinal stenosis Chronic neck pain with history of cervical spinal surgery Chronic systolic (congestive) heart failure CKD (chronic kidney disease) stage 3, GFR 30-59 ml/min Closed injury of head COPD (chronic obstructive pulmonary disease) Dermatitis Diabetes mellitus type 2 in nonobese Essential (primary) hypertension Fatigue Headache Hiatal hernia History of peptic ulcer disease History of ST elevation myocardial infarction (STEMI) IBS (irritable bowel syndrome) Insomnia Irritable bowel syndrome with diarrhea Ischemic cardiomyopathy Left ventricular hypertrophy Multiple sclerosis Mural thrombus of heart Nicotine abuse BRYAN (obstructive sleep apnea) Osteoporosis Paroxysmal atrial fibrillation RLS (restless legs syndrome) Takotsubo syndrome Type 2 diabetes mellitus Vitamin B12 deficiency Vitamin deficiency Home Medications modafinil 200 mg tablet 200 mg PO DAILY to stay awake 12/12/19 [History Last Taken 06/06/22] acetaminophen 500 mg tablet 1,000 mg (2 x 500 mg) PO TID PRN pain -02/03 #1 TAB 07/29/20 [Rx Last Taken 06/06/22] cholecalciferol (vitamin D3) 125 mcg (5,000 unit) capsule 125 mcg PO DAILY supplement 11/05/21 [History Last Taken 06/06/22] ferrous sulfate 325 mg (65 mg iron) tablet 325 mg PO DAILY supplement 11/05/21 [History Last Taken 06/05/22] potassium chloride 20 mEq tablet,extended release 20 meq PO DAILY PRN take with lasix #90 tabs 12/24/21 [Rx Last Taken Unknown] carvedilol 6.25 mg tablet 6.25 mg PO BID dose reduced while in [facility] 01/14/22 [History Last Taken 06/06/22] isosorbide mononitrate 30 mg tablet,extended release 24 hr 30 mg PO BID heart 01/14/22 [History Last Taken 06/06/22] aspirin 81 mg tablet,delayed release (Adult Aspirin Regimen) 81 mg PO DAILY heart health 04/01/22 [History Last Taken 06/06/22] eluxadoline 100 mg tablet 100 mg PO BID IBS 04/01/22 [History Last Taken 06/06/22] ofatumumab 20 mg/0.4 mL subcutaneous pen injector (Kesimpta Pen) 20 mg subcut QMONTH MS 04/01/22 [History Last Taken 05/06/22] ascorbic acid (vitamin C) 500 mg chewable tablet 500 mg PO DAILY supplement 06/06/22 [History Last Taken 06/06/22] atorvastatin 40 mg tablet 40 mg PO QHS cholesterol 06/06/22 [History Last Taken 06/05/22] dapagliflozin propanediol 10 mg tablet (Farxiga) 10 mg PO QAM DM 06/06/22 [History Last Taken 06/06/22] denosumab 60 mg/mL subcutaneous syringe (Prolia) 60 mg subcut [id number] bone health 06/06/22 [History Last Taken Unknown] acetaminophen 325 mg tablet (Tylenol) 650 mg (2 x 325 mg) PO Q6H PRN Pain (Scale Score 4-6) #0 tabs 06/10/22 [Rx Last Taken Unknown] hydrocodone-acetaminophen 5-325mg 5mg-325mg 1 tab PO Q6H PRN PRN Pain Score 1-10 2 days #10 tabs 06/10/22 [Rx Last Taken Unknown] albuterol sulfate 2.5 mg/3 mL (0.083 %) solution for nebulization 2.5 mg (3 mL) inhalation Q8H PRN Dyspnea, wheezing #180 mL 07/21/22 [Rx Last Taken Unknown] benzonatate 200 mg capsule 200 mg PO BID PRN cough #60 caps 07/21/22 [Rx Last Taken Unknown] losartan 50 mg tablet 50 mg PO DAILY #90 tabs 07/24/22 [Rx Last Taken Unknown] blood sugar diagnostic (Accu-Chek Ada Plus test strips) #100 ea 07/29/22 [Rx Last Taken Unknown] semaglutide 0.25 mg or 0.5 mg (2 mg/3 mL) subcutaneous pen injector (Ozempic) 0.5 mg (0.736 mL) subcut QWEEK #3 mL 08/07/22 [Rx Last Taken Unknown] ondansetron 4 mg disintegrating tablet 4 mg PO Q8H PRN nausea and vomiting #30 tabs 09/02/22 [Rx Last Taken Unknown] pantoprazole 40 mg tablet,delayed release 40 mg PO DAILY gerd #90 tabs 09/04/22 [Rx Last Taken Unknown] apixaban 5 mg tablet (Eliquis) 5 mg PO BID #180 tabs 09/11/22 [Rx Last Taken Unknown] calcium carbonate 600 mg calcium (1,500 mg) tablet (Calcium) 600 mg PO DAILY 09/11/22 [History Last Taken Unknown] dicyclomine 20 mg tablet 20 mg PO BID PRN abdominal pain 09/11/22 [History Last Taken Unknown] donepezil 10 mg tablet 20 mg PO .QLunch 09/11/22 [History Last Taken Unknown] furosemide 20 mg tablet (Lasix) 20 mg PO DAILY PRN edema 09/11/22 [History Last Taken Unknown] insulin lispro 100 unit/mL subcutaneous pen 1 sliding scale dose subcut QAC 09/11/22 [History Last Taken Unknown] multivitamin 1 tab PO DAILY 09/11/22 [History Last Taken Unknown] nitroglycerin 0.4 mg sublingual tablet 0.4 mg sublingual Q5-15M #25 tabs 09/11/22 [Rx Last Taken Unknown] hydrocortisone 2.5 % topical cream 1 applic topical BID PRN skin irritation #454 grams 09/12/22 [Rx Last Taken Unknown] ofatumumab 20 mg/0.4 mL subcutaneous pen injector (Kesimpta Pen) 20 mg subcut QMONTH 09/12/22 [History Last Taken Unknown] phenazopyridine 200 mg tablet (Pyridium) 200 mg PO TID #10 tabs 09/23/22 [Rx Last Taken Unknown] sulfamethoxazole 800 mg-trimethoprim 160 mg tablet 1 tab PO BID #14 TABLETS 09/23/22 [Rx Last Taken Unknown] duloxetine 30 mg capsule,delayed release (Cymbalta) 30 mg PO BID mental health #180 caps 09/30/22 [Rx Last Taken Unknown] sucralfate 1 gram tablet 1 g PO 4X/DAY PRN reflux #180 tabs 10/02/22 [Rx Last Taken Unknown] phenazopyridine 100 mg tablet (Pyridium) 100 mg PO TID PRN pain 6 doses #6 tabs 10/03/22 [Rx Last Taken Unknown] ondansetron 4 mg disintegrating tablet 4 mg PO Q8H PRN PRN Nausea #14 tabs 10/06/22 [Rx Last Taken Unknown] ropinirole 2 mg tablet 2 mg PO QHS restless leg #30 tabs 10/21/22 [Rx Last Taken Unknown] albuterol sulfate 90 mcg/actuation aerosol inhaler 2 puff inhalation Q6H PRN shortness of breath or wheezing #8.5 grams 10/29/22 [Rx Last Taken Unknown] quetiapine 100 mg tablet 100 mg PO QHS mood #30 tabs 11/05/22 [Rx Last Taken Unknown] acidophilus 100 million cell-pectin, citrus 10 mg capsule 1 cap PO DAILY supplement #90 caps 11/17/22 [Rx Last Taken Unknown] pioglitazone 30 mg tablet 30 mg PO DAILY diabetes #30 tabs 11/17/22 [Rx Last Taken Unknown] hydroxyzine HCl 50 mg tablet See Rx Instructions .Route .COMPLEX #60 tabs 11/21/22 [Rx Last Taken Unknown] dicyclomine 10 mg capsule 10 mg PO BID PRN abdominal pain #30 caps 11/24/22 [Rx Last Taken Unknown] ondansetron 4 mg disintegrating tablet 4 mg PO Q8H PRN PRN Nausea #20 tabs 11/24/22 [Rx Last Taken Unknown] Allergy/AdvReac Type Severity Reaction Status Date / Time indomethacin [From Indocin] Allergy Hives Verified 11/24/22 10:20 indomethacin sodium Allergy Hives Verified 11/24/22 10:20 [From Indocin] iodine Allergy Hives Verified 11/24/22 10:20 propoxyphene napsylate Allergy Out of Verified 11/24/22 10:20 [From Darvocet-N] control trazodone AdvReac Intermediate Other Verified 11/24/22 10:20 aripiprazole [From Abilify] AdvReac Other Verified 11/24/22 10:20 aspirin AdvReac Upset Verified 11/24/22 10:20 Stomach clindamycin AdvReac Nausea Verified 11/24/22 10:20 metformin AdvReac Other Verified 11/24/22 10:20 sumatriptan [From Imitrex] AdvReac Vomiting Verified 11/24/22 10:20 Family History Father Cancer Lung cancer Mother Cancer Pancreatic cancer Surgical History History of amputation of left great toe History of back surgery History of cervical discectomy History of coronary artery stent placement (04/08/16) History of endoscopy History of left heart catheterization (09/25/20) History of left knee surgery History of loop recorder (06/2014) History of tonsillectomy and adenoidectomy Hx of bilateral cataract extraction (~03/2022) Social History household members: none Smoking Status: Current every day smoker tobacco type: cigarettes alcohol intake: never substance use type: does not use caffeine: Yes Type: coffee Number of servings: 1 what type of physical activity do you participate in: none and other details: Physical Therapy ROS ROS ED Constitutional Constitutional ED: Denies chills or fever(s) Eyes Eyes: Reports blurry vision left ENT ENT ED: Denies rhinorrhea or sore throat Cardiovascular Cardiovascular: Denies chest pain or palpitations Respiratory/Chest Respiratory/Chest: Denies cough or dyspnea Gastrointestinal Gastrointestinal: Reports diarrhea; Denies abdominal pain, nausea or vomiting Genitourinary Genitourinary ED: Denies dysuria or hematuria Musculoskeletal Musculoskeletal: Denies arthralgias or back pain Integumentary Denies abscess or Abrasions Neurologic Neurologic: Reports headache(s), paresthesias LUE and other Details: Left side of face Psychiatric Psychiatric: Denies anxiety EXAM Physical Exam Const Vital Signs: 11/24/22 10:20 11/24/22 10:25 Temperature 97.3 F L Temperature Source Temporal Pulse Rate 69 Respiratory Rate 17 Respiratory Pattern Normal Blood Pressure 188/63 H Blood Pressure Mean 104 Pulse Ox 93 Oxygen Delivery Method Room Air General Appearance ED: NAD HEOSCAR Reports moist mucous membranes Eyes PERRL and EOMs intact bilaterally General Eye ED: Negative for pale conjunctiva or scleral icterus Chest Wall inspection of chest normal Resp normal respiratory effort and clear to auscultation bilaterally Auscultation: Negative for rales, rhonchi or wheezes Cardio regular rate and regular rhythm GI normal to inspection, nondistended, normoactive bowel sounds MDM MDM MDM Narrative Medical decision making narrative: Patient presenting mainly for diarrhea. She has a little bit of nausea sporadically. She did initially want to be treated for nausea or diarrhea. She states that she has already been evaluated for her eye pain and is on prednisone for an MS flare from her neurologist. She believes that the steroids are giving her diarrhea. No fevers or chills. I obtained a CBC to assess count, hemoglobin, platelets, differential. CMP to assess liver function, renal function, electrolytes. Urinalysis was elevated. I will obtain a CT brain because she is having pain behind her left eye and is on Eliquis with nausea and vomiting. Lipase to assess for pancreatitis. CBC shows a slight leukocytosis of 12.2. Hemoglobin hematocrit are stable. Platelets are normal. Sodium slightly low at 134. Potassium normal. Anion gap normal. BUN/creatinine 23/0.88 and the patient was given a liter of IV fluids. Her LFTs are normal. Lipase is negative. Urinalysis negative. Obtain a CT brain which is negative for intracranial bleed or other acute findings. On reevaluation she states she is a little bit nauseous and she had an episode of diarrhea. She was requesting Zofran and Bentyl which was provided. I counseled her that her work-up is ultimately pretty normal she requested Bentyl and Zofran for home. She states she will follow-up with her neurologist for her MS symptoms. Return precautions were discussed. Impression: 1. History of MS flare 2. Nausea/vomiting 3. Diarrhea 4. Dehydration Lab Data Labs: Laboratory Results - last 24 hr 11/24/22 11/24/22 10:25 12:15 WBC 12.2 H RBC 4.97 Hgb 16.1 H Hct 48.9 H MCV 98.4 MCH 32.4 H MCHC 32.9 RDW Std Deviation 52.6 H RDW Coeff of [place] 14.4 Plt Count 241 MPV 11.2 Immature Gran % (Auto) 0.500 Neut % (Auto) 82.4 H Lymph % (Auto) 8.3 L [place] % (Auto) 7.9 Eos % (Auto) 0.6 Baso % (Auto) 0.3 Absolute Neuts (auto) 10.1 H Absolute Lymphs (auto) 1.02 Nucleated RBC % 0 Sodium 134 L Potassium 3.7 Chloride 100 Carbon Dioxide 27.0 Anion Gap 7 BUN 23 H Creatinine 0.88 Estim Creat Clear Calc 49.06 Est GFR (MDRD) Af Amer 82 Est GFR (MDRD) Non-Af 68 BUN/Creatinine Ratio 26.2 H Glucose 215 H Calcium 10.4 H Total Bilirubin 0.60 AST 9 L ALT 16 Alkaline Phosphatase 73 Total Protein 7.2 Albumin 3.7 Globulin 3.5 Albumin/Globulin Ratio 1.1 Lipase 18 Urine Color Yellow Urine Clarity Clear Urine pH 6.0 Ur Specific [place] 1.010 Urine Protein Negative Urine Glucose (UA) 1000 H Urine Ketones Negative Urine Occult Blood Negative Urine Nitrite Negative Urine Bilirubin Negative Urine Urobilinogen Normal Ur Leukocyte Esterase 100 H Urine RBC 0 SEEN Urine WBC 5-10 SEEN Ur Squamous Epith Cells 5-10 SEEN Urine Bacteria 1+ Urine Mucus 0 SEEN Radiography Diagnostic Testing: Clinical Impression(s) from Imaging Studies Brain CT 11/24/22 11:52 IMPRESSION: Chronic involutional changes of the brain. Electronically Signed: Daljit Jordan MD at 12:08 EDT , Discharge Plan Triage Chief Complaint: Weakness ED Provider: Yosef Lugo Dx/Rx/DC Orders Instructions: ED Diarrhea, Unknown Cause, ED Vomiting (Adult) Prescriptions: New dicyclomine 10 mg capsule 10 mg PO BID PRN (Reason: abdominal pain) Qty: 30 0RF ondansetron 4 mg tablet,disintegrating 4 mg PO Q8H PRN PRN (Reason: Nausea) Qty: 20 0RF No Action cholecalciferol (vitamin D3) 125 mcg (5,000 unit) capsule 125 mcg PO DAILY ferrous sulfate 325 mg (65 mg iron) tablet 325 mg PO DAILY isosorbide mononitrate 30 mg tablet extended release 24 hr 30 mg PO BID eluxadoline 100 mg tablet 100 mg PO BID potassium chloride 20 mEq tablet extended release 20 meq PO DAILY PRN (Reason: take with lasix) Qty: 90 1RF carvedilol 6.25 mg tablet 6.25 mg PO BID Rx Instructions: must administer with a meal/food aspirin [Adult Aspirin Regimen] 81 mg tablet,delayed release (DR/EC) 81 mg PO DAILY Kesimpta Pen 20 mg/0.4 mL pen injector 20 mg subcut QMONTH Rx Instructions: begin at Week 4 of therapy donepezil 10 mg tablet 20 mg PO .QLunch insulin lispro 100 unit/mL insulin pen 1 sliding scale dose subcut QAC Patient Comments: Use with meals based on PRE meal blood sugar SLIDING SCALE as needed #1 (1 unit for every 50 over 150) Max 20 units daily. multivitamin Tablet 1 tab PO DAILY calcium carbonate [Calcium 600] 600 mg calcium (1,500 mg) tablet 600 mg PO DAILY furosemide [Lasix] 20 mg tablet 20 mg PO DAILY PRN (Reason: edema) dicyclomine 20 mg tablet 20 mg PO BID PRN (Reason: abdominal pain) Patient Comments: TAKE 1 TABLET BY MOUTH TWICE DAILY NEEDED FOR ABDOMINAL DISCOMFORT Eliquis 5 mg tablet 5 mg PO BID Qty: 180 3RF nitroglycerin 0.4 mg tablet, sublingual 0.4 mg sublingual Q5-15M Qty: 25 3RF albuterol sulfate 2.5 mg /3 mL (0.083 %) solution for nebulization 2.5 mg inhalation Q8H PRN (Reason: Dyspnea, wheezing) Qty: 180 0RF benzonatate 200 mg capsule 200 mg PO BID PRN (Reason: cough) Qty: 60 0RF quetiapine 100 mg tablet 100 mg PO QHS Qty: 30 2RF Kesimpta Pen 20 mg/0.4 mL pen injector 20 mg subcut QMONTH Rx Instructions: begin at Week 4 of therapy hydrocortisone 2.5 % cream 1 applic topical BID PRN (Reason: skin irritation) Qty: 454 1RF modafinil 200 MG tablet 200 mg PO DAILY acetaminophen 500 MG tablet 1,000 mg PO TID PRN (Reason: pain 1-02/03) Qty: 1 0RF Rx Instructions: alternate with ibuprofen atorvastatin 40 mg tablet 40 mg PO QHS ascorbic acid (vitamin C) 500 mg tablet,chewable 500 mg PO DAILY Prolia 60 mg/mL syringe 60 mg subcut [id number] Farxiga 10 mg tablet 10 mg PO QAM hydrocodone-acetaminophen 5-325 mg Tablet 1 tab PO Q6H PRN PRN (Reason: Pain Score 1-10) 2 Days Qty: 10 0RF acetaminophen [Tylenol] 325 mg Tablet 650 mg PO Q6H PRN (Reason: Pain (Scale Score 4-6)) Qty: 0 0RF phenazopyridine [Pyridium] 200 mg tablet 200 mg PO TID Qty: 10 0RF sulfamethoxazole-trimethoprim [sulfamethoxazole-trimethoprim] 800-160 mg tablet 1 tab PO BID Qty: 14 0RF ondansetron 4 mg tablet,disintegrating 4 mg PO Q8H PRN PRN (Reason: Nausea) Qty: 14 0RF losartan 50 mg tablet 50 mg PO DAILY Qty: 90 3RF (DME) Accu-Chek Ada Plus test strp Strip See Rx Instructions .Route Qty: 100 6RF Rx Instructions: As directed Ozempic 0.25 mg or 0.5 mg (2 mg/3 mL) pen injector 0.5 mg subcut QWEEK Qty: 3 1RF Rx Instructions: for 4 weeks, then .5 mg weekly ondansetron 4 mg tablet,disintegrating 4 mg PO Q8H PRN (Reason: nausea and vomiting) Qty: 30 1RF pantoprazole 40 mg tablet,delayed release (DR/EC) 40 mg PO DAILY Qty: 90 1RF duloxetine [Cymbalta] 30 mg capsule,delayed release(DR/EC) 30 mg PO BID Qty: 180 2RF sucralfate 1 gram tablet 1 g PO 4X/DAY PRN (Reason: reflux) Qty: 180 1RF phenazopyridine [Pyridium] 100 mg tablet 100 mg PO TID PRN (Reason: pain) Qty: 6 0RF ropinirole 2 mg tablet 2 mg PO QHS Qty: 30 1RF Rx Instructions: administer 1-3 hours before bedtime albuterol sulfate 90 mcg/actuation HFA aerosol inhaler 2 puff inhalation Q6H PRN (Reason: shortness of breath or wheezing) Qty: 8.5 2RF acidophilus-pectin, citrus 100 million cell-10 mg capsule 1 cap PO DAILY Qty: 90 0RF pioglitazone 30 mg tablet 30 mg PO DAILY Qty: 30 0RF hydroxyzine HCl 50 mg tablet See Rx Instructions .ROUTE .COMPLEX Qty: 60 0RF Dose Instruction: TAKE 1 TABLET BY MOUTH TWICE DAILY NEEDED for itching Rx Instructions: TAKE 1 TABLET BY MOUTH TWICE DAILY NEEDED for itching Primary Care Provider: Carlton Rocha NP Referrals: Carlton Rocha NP, [facility] [employer] [Primary Care Provider] - Disposition Disposition: Home, Self Care
[2022-11-24 11:16] LABS: Absolute Lymphocyte Count 1.02 X10^3/uL (0.83-4.51); Absolute Neutrophil Count 10.1 X10^3/uL (2.0-7.7); Basophil# 0.04 X10^3/uL; Basophil% 0.3 % (0-1); Eosinophil# 0.07 X10^3/uL; Eosinophils% 0.6 % (0-5); Hematocrit 48.9 % (37-47); Hemoglobin 16.1 g/dL (12.0-15.0); Lymphocyte # 1.02 X10^3/ul (0.83-4.51); Lymphocyte % 8.3 % (19-41); Mean Corp Hgb Conc 32.9 g/dL (32-36); Mean Corpuscular Hgb 32.4 pg (27.0-32.0); Mean Corpuscular Volume 98.4 fL (81-99); Mean Platelet Vol. 11.2 fl (6.2-12.0); Monocyte# 0.97 X10^3/uL; Monocyte% 7.9 % (0-10); NRBC Flagged by Analyzer 0 % (0-5); Neutrophil # 10.06 X10^3/uL (2.7-7.7); Neutrophil % 82.4 % (47-70); Platelet Count 241 K/mm3 (150-450); RBC Distribution Width CV 14.4 % (11.6-14.6); RBC Distribution Width SD 52.6 fl (35.1-43.9); Red Blood Count 4.97 M/mm3 (4.2-5.4); White Blood Count 12.2 K/mm3 (4.4-11.0)
[2022-11-24] MEDS: 0.9% Normal Saline 1,000 ML 1000 ML IV (11:26)
[2022-11-24 11:32] LABS: ALB/GLOB Ratio 1.1 RATIO (0.9-2.4); AST(SGOT) 9 U/L (15-37); Alanine Aminotransfer ALT/SGPT 16 U/L (13-56); Albumin, Serum 3.7 g/dL (3.2-5.0); Alkaline Phosphatase 73 U/L (45-117); Anion Gap 7 (5-15); BUN 23 mg/dL (7-18); BUN/Creat Ratio 26.2 RATIO (10-20); Calcium,Total 10.4 mg/dL (8.5-10.1); Chloride 100 mmol/L (98-107); Creatinine, Serum 0.88 mg/dL (0.55-1.02); EST Glomerular Filtration Rate 68 mL/min (>60); Est Glom Filt Rate - Afr Amer 82 mL/min (>60); Estimated Creatinine Clearance 49.06 ml/min; Globulin 3.5 g/dL (2.2-4.2); Glucose 215 mg/dL (74-106); Lipase 18 U/L (13-75); Potassium 3.7 mmol/L (3.5-5.1); Protein, Total 7.2 g/dL (6.4-8.2); Sodium Level 134 mmol/L (136-145)
--- NOTE | 2022-11-24 11:52 | CT_ITS ---
STUDY: CT BRAIN WITHOUT CONTRAST REASON FOR EXAM: Female, 66 years old. Headache RADIATION DOSAGE (If Supplied By Facility): CTDIvol = ( 44.99 ) mGy, DLP = ( 863.60 ) mGycm TECHNIQUE: Transaxial CT imaging of the brain was performed without administration of intravenous contrast material. Individualized dose optimization techniques were used for this CT. COMPARISON: Comparison is made with prior study of June 06, 2022. FINDINGS: Normal soft tissue structures. Normal calvarium. There is mild cerebral atrophy with widening of the extra-axial spaces and ventricular dilatation. There are areas of decreased attenuation within the white matter tracts of the supratentorial brain, consistent with microvascular disease changes. Normal basal ganglia and thalami. Normal brainstem. Normal cerebellum. There is no intracranial hemorrhage. There are no findings of an acute ischemic infarction. Atherosclerotic calcification of the cavernous portions of the internal carotid arteries bilaterally. Normal visualized paranasal sinuses. CT/Brain/Head without Contrast IMPRESSION: Chronic involutional changes of the brain. Electronically Signed: Daljit Jordan MD at 12:08 EDT ,
[2022-11-24 12:23] LABS: Mucous, Urine 0 SEEN /hpf (<or=2+); Red Blood Cells-Urine 0 SEEN /hpf (0-5)
[2022-11-24 12:28] LABS: Color, Urine Yellow (Yellow); Glucose, Dipstick 1000 mg/dl (Normal); Ketone-Dipstick Negative (Negative); Leukocyte Esterase-Dipstick 100 /ul (Negative); Nitrite-Dipstick Negative (Negative); Occult Blood-Urine Negative /ul (Negative); Protein-Dipstick Negative (Negative); Urine Bilirubin Dipstick Negative (Negative); Urine Clarity Clear (Clear); Urine Urobilinogen Normal (Normal)
[2022-11-24 12:48] LABS: Bacteria 1+ /hpf (None Seen); Squamous Epithelial Cells - UA 5-10 SEEN /hpf (5-10); White Blood Cells 5-10 SEEN /hpf (0-5)
[2022-11-24] MEDS: Ondansetron ODT 4 MG Tablet PO (15:27)
[2022-11-24] MEDS: Dicyclomine 10 MG Capsule 20 MG PO (15:27)
== END 2022-11-24 15:42 | disposition home or self-care (01) ==
PROVIDERS: Emergency Provider Student in an Organized Health Care Education/Training Program; PCP Nurse Practitioner Family; Visit Provider Student in an Organized Health Care Education/Training Program
DX: E86.0 Dehydration (principal); G35 Multiple sclerosis; J44.9 Chronic obstructive pulmonary disease, unspecified; I50.22 Chronic systolic (congestive) heart failure; I13.0 Hypertensive heart and chronic kidney disease with heart failure and stage 1 through stage 4 chronic kidney disease, or unspecified chronic kidney disease; E11.22 Type 2 diabetes mellitus with diabetic chronic kidney disease; I48.0 Paroxysmal atrial fibrillation; Z79.4 Long term (current) use of insulin; N18.30 Chronic kidney disease, stage 3 unspecified; R19.7 Diarrhea, unspecified; R11.2 Nausea with vomiting, unspecified; I25.10 Atherosclerotic heart disease of native coronary artery without angina pectoris; I25.2 Old myocardial infarction; F17.210 Nicotine dependence, cigarettes, uncomplicated; Z95.5 Presence of coronary angioplasty implant and graft; Z79.01 Long term (current) use of anticoagulants; Z79.82 Long term (current) use of aspirin; Z79.84 Long term (current) use of oral hypoglycemic drugs; Z79.899 Other long term (current) drug therapy
CPT/HCPCS: 70450; 80053; 81001; 83690; 85025; 96360; 96361; 99284; J7030; A4216

== ENCOUNTER 2022-12-25 11:24 | Emergency (ER) | payer MEDICARE, MEDICAID, SELFPAY ==
[2016-07-13 11:45] VITALS: BMI 31.4
[2022-12-25 11:26] VITALS: BP 133/66; PULSE 58; RESP 16; TEMP 36.2; O2SAT 99; BMI 29.0
--- NOTE | 2022-12-25 11:38 | EDS_ITS ---
<Statement entered by Amy Sánchez MD - 12/25/22 15:23> I have personally performed a face to face assessment of the patient and have reviewed the DAJUAN Note. Patient presents via EMS secondary to right flank pain with urinary frequency and urgency. She states she does not have pain when she urinates. No fever or chills. Patient lying in bed no acute distress. Head and neck examination reveals multiple scabbed lesions to her skin. No sign of secondary infection. Heart is regular rate and rhythm. Lung sounds are clear. Abdomen is soft with mild tenderness to the right abdomen. Patient has mild tenderness to the right lumbar paraspinal muscles. CBC and chemistry studies are largely unremarkable. Urinalysis reveals no evidence of infection. She does have 1000 of glucose noted in her urine. CT flank reveals no acute findings. It does appear that she has constipation on reviewing her images. She will be treated with magnesium citrate. We discussed controlling her blood sugars to help with her glucosurea and her urinary symptoms. HPI History of Present Illness Chief Complaint: Complaint Narrative Narrative: Patient is a 67-year-old female with history of multiple sclerosis, diabetes, on Eliquis for atrial fibrillation, history of pulmonary embolus, anxiety, depression, kidney disease who presents to the emergency department for 2 days of feeling fatigued, some blood in her urine as well as some intermittent right flank pain. [facility] a [facility] center today, when she was going to the bathroom continuously, had some regular chills. Denies any nausea or vomiting. She was brought in by EMS. [facility] Medical History Anemia Anxiety and depression Apical mural thrombus with acute [place] Atherosclerotic heart disease of [place] coronary artery without angina pectoris Cataracts, both eyes Cervical spinal stenosis Chronic neck pain with history of cervical spinal surgery Chronic systolic (congestive) heart failure CKD (chronic kidney disease) stage 3, GFR 30-59 ml/min Closed injury of head COPD (chronic obstructive pulmonary disease) Dermatitis Diabetes mellitus type 2 in nonobese Essential (primary) hypertension Fatigue Headache Hiatal hernia History of peptic ulcer disease History of ST elevation myocardial infarction (STEMI) IBS (irritable bowel syndrome) Insomnia Irritable bowel syndrome with diarrhea Ischemic cardiomyopathy Left ventricular hypertrophy Multiple sclerosis Mural thrombus of heart Nicotine abuse BRYAN (obstructive sleep apnea) Osteoporosis Paroxysmal atrial fibrillation RLS (restless legs syndrome) Takotsubo syndrome Type 2 diabetes mellitus Vitamin B12 deficiency Vitamin deficiency Home Medications modafinil 200 mg tablet 200 mg PO DAILY to stay awake 12/12/19 [History Last Taken 06/06/22] acetaminophen 500 mg tablet 1,000 mg (2 x 500 mg) PO TID PRN pain -02/03 #1 TAB 07/29/20 [Rx Last Taken 06/06/22] cholecalciferol (vitamin D3) 125 mcg (5,000 unit) capsule 125 mcg PO DAILY supplement 11/05/21 [History Last Taken 06/06/22] ferrous sulfate 325 mg (65 mg iron) tablet 325 mg PO DAILY supplement 11/05/21 [ History Last Taken 06/05/22] potassium chloride 20 mEq tablet,extended release 20 meq PO DAILY PRN take with lasix #90 tabs 12/24/21 [Rx Last Taken Unknown] isosorbide mononitrate 30 mg tablet,extended release 24 hr 30 mg PO BID heart 01/14/22 [History Last Taken 06/06/22] aspirin 81 mg tablet,delayed release (Adult Aspirin Regimen) 81 mg PO DAILY heart health 04/01/22 [History Last Taken 06/06/22] eluxadoline 100 mg tablet 100 mg PO BID IBS 04/01/22 [History Last Taken 06/06/22] ofatumumab 20 mg/0.4 mL subcutaneous pen injector (Kesimpta Pen) 20 mg subcut QMONTH MS 04/01/22 [History Last Taken 05/06/22] ascorbic acid (vitamin C) 500 mg chewable tablet 500 mg PO DAILY supplement 06/06/22 [History Last Taken 06/06/22] atorvastatin 40 mg tablet 40 mg PO QHS cholesterol 06/06/22 [History Last Taken 06/05/22] dapagliflozin propanediol 10 mg tablet (Farxiga) 10 mg PO QAM DM 06/06/22 [History Last Taken 06/06/22] denosumab 60 mg/mL subcutaneous syringe (Prolia) 60 mg subcut [id number] bone hea lth 06/06/22 [History Last Taken Unknown] acetaminophen 325 mg tablet (Tylenol) 650 mg (2 x 325 mg) PO Q6H PRN Pain (Scale Score 4-6) #0 tabs 06/10/22 [Rx Last Taken Unknown] hydrocodone-acetaminophen 5-325mg 5mg-325mg 1 tab PO Q6H PRN PRN Pain Score 1-10 2 days #10 tabs 06/10/22 [Rx Last Taken Unknown] albuterol sulfate 2.5 mg/3 mL (0.083 %) solution for nebulization 2.5 mg (3 mL) inhalation Q8H PRN Dyspnea, wheezing #180 mL 07/21/22 [Rx Last Taken Unknown] benzonatate 200 mg capsule 200 mg PO BID PRN cough #60 caps 07/21/22 [Rx Last Taken Unknown] losartan 50 mg tablet 50 mg PO DAILY #90 tabs 07/24/22 [Rx Last Taken Unknown] blood sugar diagnostic (Accu-Chek Ada Plus test strips) #100 ea 07/29/22 [Rx Last Taken Unknown] semaglutide 0.25 mg or 0.5 mg (2 mg/3 mL) subcutaneous pen injector (Ozempic) 0.5 mg (0.736 mL) subcut QWEEK #3 mL 08/07/22 [Rx Last Taken Unknown] ondansetron 4 mg disintegrating tablet 4 mg PO Q8H PRN nausea and vomiting #30 tabs 09/02/22 [Rx Last Taken Unknown] pantoprazole 40 mg tablet,delayed release 40 mg PO DAILY gerd #90 tabs 09/04/22 [Rx Last Taken Unknown] apixaban 5 mg tablet (Eliquis) 5 mg PO BID #180 tabs 09/11/22 [Rx Last Taken
--- NOTE | 2022-12-25 11:38 | EX.ED.DYSGE1 ---
HPI History of Present Illness Chief Complaint: Complaint Narrative Narrative: Patient is a 67-year-old female with history of multiple sclerosis, diabetes, on Eliquis for atrial fibrillation, history of pulmonary embolus, anxiety, depression, kidney disease who presents to the emergency department for 2 days of feeling fatigued, some blood in her urine as well as some intermittent right flank pain. She was at a senior center today, when she was going to the bathroom continuously, had some regular chills. Denies any nausea or vomiting. She was brought in by EMS. [facility] Medical History Anemia Anxiety and depression Apical mural thrombus with acute MS Atherosclerotic heart disease of [place] coronary artery without angina pectoris Cataracts, both eyes Cervical spinal stenosis Chronic neck pain with history of cervical spinal surgery Chronic systolic (congestive) heart failure CKD (chronic kidney disease) stage 3, GFR 30-59 ml/min Closed injury of head COPD (chronic obstructive pulmonary disease) Dermatitis Diabetes mellitus type 2 in nonobese Essential (primary) hypertension Fatigue Headache Hiatal hernia History of peptic ulcer disease History of ST elevation myocardial infarction (STEMI) IBS (irritable bowel syndrome) Insomnia Irritable bowel syndrome with diarrhea Ischemic cardiomyopathy Left ventricular hypertrophy Multiple sclerosis Mural thrombus of heart Nicotine abuse BRYAN (obstructive sleep apnea) Osteoporosis Paroxysmal atrial fibrillation RLS (restless legs syndrome) Takotsubo syndrome Type 2 diabetes mellitus Vitamin B12 deficiency Vitamin deficiency Home Medications modafinil 200 mg tablet 200 mg PO DAILY to stay awake 12/12/19 [History Last Taken 06/06/22] acetaminophen 500 mg tablet 1,000 mg (2 x 500 mg) PO TID PRN pain -02/03 #1 TAB 07/29/20 [Rx Last Taken 06/06/22] cholecalciferol (vitamin D3) 125 mcg (5,000 unit) capsule 125 mcg PO DAILY supplement 11/05/21 [History Last Taken 06/06/22] ferrous sulfate 325 mg (65 mg iron) tablet 325 mg PO DAILY supplement 11/05/21 [History Last Taken 06/05/22] potassium chloride 20 mEq tablet,extended release 20 meq PO DAILY PRN take with lasix #90 tabs 12/24/21 [Rx Last Taken Unknown] isosorbide mononitrate 30 mg tablet,extended release 24 hr 30 mg PO BID heart 01/14/22 [History Last Taken 06/06/22] aspirin 81 mg tablet,delayed release (Adult Aspirin Regimen) 81 mg PO DAILY heart health 04/01/22 [History Last Taken 06/06/22] eluxadoline 100 mg tablet 100 mg PO BID IBS 04/01/22 [History Last Taken 06/06/22] ofatumumab 20 mg/0.4 mL subcutaneous pen injector (Kesimpta Pen) 20 mg subcut QMONTH MS 04/01/22 [History Last Taken 05/06/22] ascorbic acid (vitamin C) 500 mg chewable tablet 500 mg PO DAILY supplement 06/06/22 [History Last Taken 06/06/22] atorvastatin 40 mg tablet 40 mg PO QHS cholesterol 06/06/22 [History Last Taken 06/05/22] dapagliflozin propanediol 10 mg tablet (Farxiga) 10 mg PO QAM DM 06/06/22 [History Last Taken 06/06/22] denosumab 60 mg/mL subcutaneous syringe (Prolia) 60 mg subcut [id number] bone health 06/06/22 [History Last Taken Unknown] acetaminophen 325 mg tablet (Tylenol) 650 mg (2 x 325 mg) PO Q6H PRN Pain (Scale Score 4-6) #0 tabs 06/10/22 [Rx Last Taken Unknown] hydrocodone-acetaminophen 5-325mg 5mg-325mg 1 tab PO Q6H PRN PRN Pain Score 1-10 2 days #10 tabs 06/10/22 [Rx Last Taken Unknown] albuterol sulfate 2.5 mg/3 mL (0.083 %) solution for nebulization 2.5 mg (3 mL) inhalation Q8H PRN Dyspnea, wheezing #180 mL 07/21/22 [Rx Last Taken Unknown] benzonatate 200 mg capsule 200 mg PO BID PRN cough #60 caps 07/21/22 [Rx Last Taken Unknown] losartan 50 mg tablet 50 mg PO DAILY #90 tabs 07/24/22 [Rx Last Taken Unknown] blood sugar diagnostic (Accu-Chek Ada Plus test strips) #100 ea 07/29/22 [Rx Last Taken Unknown] semaglutide 0.25 mg or 0.5 mg (2 mg/3 mL) subcutaneous pen injector (Ozempic) 0.5 mg (0.736 mL) subcut QWEEK #3 mL 08/07/22 [Rx Last Taken Unknown] ondansetron 4 mg disintegrating tablet 4 mg PO Q8H PRN nausea and vomiting #30 tabs 09/02/22 [Rx Last Taken Unknown] pantoprazole 40 mg tablet,delayed release 40 mg PO DAILY gerd #90 tabs 09/04/22 [Rx Last Taken Unknown] apixaban 5 mg tablet (Eliquis) 5 mg PO BID #180 tabs 09/11/22 [Rx Last Taken Unknown] calcium carbonate 600 mg calcium (1,500 mg) tablet (Calcium) 600 mg PO DAILY 09/11/22 [History Last Taken Unknown] dicyclomine 20 mg tablet 20 mg PO BID PRN abdominal pain 09/11/22 [History Last Taken Unknown] donepezil 10 mg tablet 20 mg PO .QLunch 09/11/22 [History Last Taken Unknown] furosemide 20 mg tablet (Lasix) 20 mg PO DAILY PRN edema 09/11/22 [History Last Taken Unknown] insulin lispro 100 unit/mL subcutaneous pen 1 sliding scale dose subcut QAC 09/11/22 [History Last Taken Unknown] multivitamin 1 tab PO DAILY 09/11/22 [History Last Taken Unknown] nitroglycerin 0.4 mg sublingual tablet 0.4 mg sublingual Q5-15M #25 tabs 09/11/22 [Rx Last Taken Unknown] hydrocortisone 2.5 % topical cream 1 applic topical BID PRN skin irritation #454 grams 09/12/22 [Rx Last Taken Unknown] ofatumumab 20 mg/0.4 mL subcutaneous pen injector (Kesimpta Pen) 20 mg subcut QMONTH 09/12/22 [History Last Taken Unknown] phenazopyridine 200 mg tablet (Pyridium) 200 mg PO TID #10 tabs 09/23/22 [Rx Last Taken Unknown] sulfamethoxazole 800 mg-trimethoprim 160 mg tablet 1 tab PO BID #14 TABLETS 09/23/22 [Rx Last Taken Unknown] duloxetine 30 mg capsule,delayed release (Cymbalta) 30 mg PO BID mental health #180 caps 09/30/22 [Rx Last Taken Unknown] sucralfate 1 gram tablet 1 g PO 4X/DAY PRN reflux #180 tabs 10/02/22 [Rx Last Taken Unknown] phenazopyridine 100 mg tablet (Pyridium) 100 mg PO TID PRN pain 6 doses #6 tabs 10/03/22 [Rx Last Taken Unknown] ondansetron 4 mg disintegrating tablet 4 mg PO Q8H PRN PRN Nausea #14 tabs 10/06/22 [Rx Last Taken Unknown] ropinirole 2 mg tablet 2 mg PO QHS restless leg #30 tabs 10/21/22 [Rx Last Taken Unknown] albuterol sulfate 90 mcg/actuation aerosol inhaler 2 puff inhalation Q6H PRN shortness of breath or wheezing #8.5 grams 10/29/22 [Rx Last Taken Unknown] quetiapine 100 mg tablet 100 mg PO QHS mood #30 tabs 11/05/22 [Rx Last Taken Unknown] acidophilus 100 million cell-pectin, citrus 10 mg capsule 1 cap PO DAILY supplement #90 caps 11/17/22 [Rx Last Taken Unknown] pioglitazone 30 mg tablet 30 mg PO DAILY diabetes #30 tabs 11/17/22 [Rx Last Taken Unknown] hydroxyzine HCl 50 mg tablet See Rx Instructions .Route .COMPLEX #60 tabs 11/21/22 [Rx Last Taken Unknown] dicyclomine 10 mg capsule 10 mg PO BID PRN abdominal pain #30 caps 11/24/22 [Rx Last Taken Unknown] ondansetron 4 mg disintegrating tablet 4 mg PO Q8H PRN PRN Nausea #20 tabs 11/24/22 [Rx Last Taken Unknown] carvedilol 12.5 mg tablet 12.5 mg PO BID this is a dose increase #180 tabs 12/23/22 [Rx Last Taken Unknown] magnesium citrate 300 ml PO X1 #1 BOTTLE 12/25/22 [Rx Last Taken Unknown] Allergy/AdvReac Type Severity Reaction Status Date / Time indomethacin [From Indocin] Allergy Hives Verified 12/25/22 11:26 indomethacin sodium Allergy Hives Verified 12/25/22 11:26 [From Indocin] iodine Allergy Hives Verified 12/25/22 11:26 propoxyphene napsylate Allergy Out of Verified 12/25/22 11:26 [From Darvocet-N] control trazodone AdvReac Intermediate Other Verified 12/25/22 11:26 aripiprazole [From Abilify] AdvReac Other Verified 12/25/22 11:26 aspirin AdvReac Upset Verified 12/25/22 11:26 Stomach clindamycin AdvReac Nausea Verified 12/25/22 11:26 metformin AdvReac Other Verified 12/25/22 11:26 sumatriptan [From Imitrex] AdvReac Vomiting Verified 12/25/22 11:26 Family History Father Cancer Lung cancer Mother Cancer Pancreatic cancer Surgical History History of amputation of left great toe History of back surgery History of cervical discectomy History of coronary artery stent placement (04/08/16) History of endoscopy History of left heart catheterization (09/25/20) History of left knee surgery History of loop recorder (06/2014) History of tonsillectomy and adenoidectomy Hx of bilateral cataract extraction (~03/2022) Social History household members: none Smoking Status: Current every day smoker tobacco type: cigarettes alcohol intake: never substance use type: does not use caffeine: Yes Type: coffee Number of servings: 1 what type of physical activity do you participate in: none and other details: Physical Therapy ROS ROS ED ROS Narrative Constitutional: Negative for fever, chills, weight loss, weakness Eyes: Negative for vision loss, vision change, double vision ENT: Negative for any sore throat, ear pain, congestion Cardiovascular: Negative for any chest pain, tightness, palpitations Respiratory: Negative for any cough, sputum production, hemoptysis, dyspnea, dyspnea on exertion, orthopnea Gastrointestinal: Negative for any abdominal pain, nausea, vomiting, diarrhea, constipation, blood in stool, blood in vomit : Negative for any urinary dysuria, retention. Positive for frequency, hematuria Muscle skeletal: Negative for any muscle joint pain, stiffness, myalgias, arthralgias, neck pain, back pain Neurological: Negative for any headache, syncope, numbness or tingling, dizziness Skin: Negative for any rashes, lumps, itching, abrasions, lacerations Psychiatric: Negative for any depression, anxiety, stress, suicidal ideation, homicidal ideation Hematologic: Negative for any easy bruising, excessive bruising, easy bleeding Allergies: Negative for any eczema, hives, rash EXAM Physical Exam Narrative Exam Narrative: Vital signs reviewed. Patient appears generally well is in no distress. HEET: Head normocephalic atraumatic, TMs clear bilaterally. Posterior pharynx is clear, moist mucous membranes. Nares clear bilaterally. Neck: Supple with no lymphadenopathy or tenderness. No signs of meningismus, negative jolt sign. Cardiac: Regular rate and rhythm no murmurs gallops or rubs, equal peripheral pulses bilaterally. Respiratory: Lungs clear to auscultation bilaterally. No chest tenderness. Abdomen: Soft, nontender, nondistended. No abdominal bruit or pulsatile masses. No hepatosplenomegaly Extremities: No peripheral edema, no signs of gross trauma or deformity. Active full range of motion of all extremities. Neuro: Cranial nerves II through XII intact, no focal neurological deficits. Skin: Clean dry and intact with no rash, purpura, petechiae, vesicles or pustules. Patient does have multiple scabs on her face from picking secondary to medication. Backs/flank: No CVA tenderness, no midline spinal tenderness, no deformity. Psych: Normal mood and affect. No SI, HI or acute psychosis. Const Vital Signs: 12/25/22 11:26 12/25/22 11:31 Temperature 97.1 F L Temperature Source Temporal Pulse Rate 58 L Respiratory Rate 16 Respiratory Effort Normal Non-Labored Respiratory Pattern Normal Blood Pressure 133/66 H Blood Pressure Mean 88 Pulse Ox 99 Oxygen Delivery Method Room Air [facility] Lab Data Labs: Laboratory Results - last 24 hr 12/25/22 12/25/22 11:50 12:45 WBC 6.5 RBC 4.72 Hgb 15.3 H Hct 47.7 H MCV 101.1 H MCH 32.4 H MCHC 32.1 RDW Std Deviation 52.5 H RDW Coeff of [place] 14.0 Plt Count 218 MPV 10.0 Immature Gran % (Auto) 0.600 Neut % (Auto) 63.2 Lymph % (Auto) 22.7 [place] % (Auto) 9.8 Eos % (Auto) 2.5 Baso % (Auto) 1.2 H Absolute Neuts (auto) 4.1 Absolute Lymphs (auto) 1.48 Nucleated RBC % 0 Sodium 134 L Potassium 4.0 Chloride 102 Carbon Dioxide 28.0 Anion Gap 4 L BUN 17 Creatinine 0.74 Estim Creat Clear Calc 42.59 Est GFR (MDRD) Af Amer 100 Est GFR (MDRD) Non-Af 83 BUN/Creatinine Ratio 22.9 H Glucose 180 H Calcium 10.2 H Urine Color Yellow Urine Clarity Sl. Cloudy Urine pH 7.0 Ur Specific [place] 1.010 Urine Protein Negative Urine Glucose (UA) 1000 H Urine Ketones Negative Urine Occult Blood Negative Urine Nitrite Negative Urine Bilirubin Negative Urine Urobilinogen Normal Ur Leukocyte Esterase Negative Urine RBC 0 SEEN Urine WBC 0 SEEN Ur Squamous Epith Cells 0-5 SEEN Urine Bacteria 0 SEEN Urine Mucus 0 SEEN Radiography Diagnostic Testing: Clinical Impression(s) from Imaging Studies Abdomen/Pelvis CT 12/25/22 12:22 IMPRESSION: Stable focal pancreatic calcification abutting the pancreas. No obstructive uropathy is seen. Hypertrophy of the left adrenal gland. Electronically Signed: Daljit Jordan MD at 13:07 EDT , Treatment and Re-Evaluation :: Patient appears to be in no distress. Patient does have multiple chronic illnesses however appears nontoxic. Patient presents to the emergency department with right-sided flank pain, dysuria, some blood in her urine. Patient will receive some basic laboratory values, concern for any leukocytosis, kidney function. Patient will also receive a CT scan of the abdomen pelvis without contrast, this is concerning for obstructing uropathy, mass. Straight cath urine will be obtained concerning for any infection. Patient laboratory values show a normal CBC, patient's chemistries were unremarkable. Patient did receive a CT scan of the abdomen pelvis without contrast concerning for mass, obstructive uropathy. This showed significant amount of stool in the colon, stable focal pancreatic calcification abutting the pancreas. No obstructive uropathy. Hypertrophy of the left adrenal gland. At this time, patient given tramadol for pain. Patient's urinalysis showed 1000 glucose however no signs of infection. Patient will be treated for constipation that was found on the CT scan. Patient is agreeable to plan. She is going to make sure her sugars are within normal limits, and maintain hydration. At this time, patient stable for discharge, All questions answered. questions answered. Discharge Plan Triage Chief Complaint: Complaint Other Complaint: Hypertension ED Midlevel Provider: Nikita Grier ED Provider: Amy Sánchez Dx/Rx/DC Orders Clinical Impression: Acute flank pain, Dysuria, Constipation Instructions: Dysuria, ED Constipation (Adult) Prescriptions: New magnesium citrate Solution 300 ml PO X1 Qty: 1 0RF No Action cholecalciferol (vitamin D3) 125 mcg (5,000 unit) capsule 125 mcg PO DAILY ferrous sulfate 325 mg (65 mg iron) tablet 325 mg PO DAILY isosorbide mononitrate 30 mg tablet extended release 24 hr 30 mg PO BID eluxadoline 100 mg tablet 100 mg PO BID potassium chloride 20 mEq tablet extended release 20 meq PO DAILY PRN (Reason: take with lasix) Qty: 90 1RF aspirin [Adult Aspirin Regimen] 81 mg tablet,delayed release (DR/EC) 81 mg PO DAILY Kesimpta Pen 20 mg/0.4 mL pen injector 20 mg subcut QMONTH Rx Instructions: begin at Week 4 of therapy donepezil 10 mg tablet 20 mg PO .QLunch insulin lispro 100 unit/mL insulin pen 1 sliding scale dose subcut QAC Patient Comments: Use with meals based on PRE meal blood sugar SLIDING SCALE as needed #1 (1 unit for every 50 over 150) Max 20 units daily. multivitamin Tablet 1 tab PO DAILY calcium carbonate [Calcium 600] 600 mg calcium (1,500 mg) tablet 600 mg PO DAILY furosemide [Lasix] 20 mg tablet 20 mg PO DAILY PRN (Reason: edema) dicyclomine 20 mg tablet 20 mg PO BID PRN (Reason: abdominal pain) Patient Comments: TAKE 1 TABLET BY MOUTH TWICE DAILY NEEDED FOR ABDOMINAL DISCOMFORT Eliquis 5 mg tablet 5 mg PO BID Qty: 180 3RF nitroglycerin 0.4 mg tablet, sublingual 0.4 mg sublingual Q5-15M Qty: 25 3RF albuterol sulfate 2.5 mg /3 mL (0.083 %) solution for nebulization 2.5 mg inhalation Q8H PRN (Reason: Dyspnea, wheezing) Qty: 180 0RF benzonatate 200 mg capsule 200 mg PO BID PRN (Reason: cough) Qty: 60 0RF quetiapine 100 mg tablet 100 mg PO QHS Qty: 30 2RF Kesimpta Pen 20 mg/0.4 mL pen injector 20 mg subcut QMONTH Rx Instructions: begin at Week 4 of therapy hydrocortisone 2.5 % cream 1 applic topical BID PRN (Reason: skin irritation) Qty: 454 1RF modafinil 200 MG tablet 200 mg PO DAILY acetaminophen 500 MG tablet 1,000 mg PO TID PRN (Reason: pain 1-10/10) Qty: 1 0RF Rx Instructions: alternate with ibuprofen atorvastatin 40 mg tablet 40 mg PO QHS ascorbic acid (vitamin C) 500 mg tablet,chewable 500 mg PO DAILY Prolia 60 mg/mL syringe 60 mg subcut [id number] Farxiga 10 mg tablet 10 mg PO QAM hydrocodone-acetaminophen 5-325 mg Tablet 1 tab PO Q6H PRN PRN (Reason: Pain Score 1-10) 2 Days Qty: 10 0RF acetaminophen [Tylenol] 325 mg Tablet 650 mg PO Q6H PRN (Reason: Pain (Scale Score 4-6)) Qty: 0 0RF phenazopyridine [Pyridium] 200 mg tablet 200 mg PO TID Qty: 10 0RF sulfamethoxazole-trimethoprim [sulfamethoxazole-trimethoprim] 800-160 mg tablet 1 tab PO BID Qty: 14 0RF ondansetron 4 mg tablet,disintegrating 4 mg PO Q8H PRN PRN (Reason: Nausea) Qty: 14 0RF dicyclomine 10 mg capsule 10 mg PO BID PRN (Reason: abdominal pain) Qty: 30 0RF ondansetron 4 mg tablet,disintegrating 4 mg PO Q8H PRN PRN (Reason: Nausea) Qty: 20 0RF losartan 50 mg tablet 50 mg PO DAILY Qty: 90 3RF (DME) Accu-Chek Ada Plus test strp Strip See Rx Instructions .Route Qty: 100 6RF Rx Instructions: As directed Ozempic 0.25 mg or 0.5 mg (2 mg/3 mL) pen injector 0.5 mg subcut QWEEK Qty: 3 1RF Rx Instructions: for 4 weeks, then .5 mg weekly ondansetron 4 mg tablet,disintegrating 4 mg PO Q8H PRN (Reason: nausea and vomiting) Qty: 30 1RF pantoprazole 40 mg tablet,delayed release (DR/EC) 40 mg PO DAILY Qty: 90 1RF duloxetine [Cymbalta] 30 mg capsule,delayed release(DR/EC) 30 mg PO BID Qty: 180 2RF sucralfate 1 gram tablet 1 g PO 4X/DAY PRN (Reason: reflux) Qty: 180 1RF phenazopyridine [Pyridium] 100 mg tablet 100 mg PO TID PRN (Reason: pain) Qty: 6 0RF ropinirole 2 mg tablet 2 mg PO QHS Qty: 30 1RF Rx Instructions: administer 1-3 hours before bedtime albuterol sulfate 90 mcg/actuation HFA aerosol inhaler 2 puff inhalation Q6H PRN (Reason: shortness of breath or wheezing) Qty: 8.5 2RF acidophilus-pectin, citrus 100 million cell-10 mg capsule 1 cap PO DAILY Qty: 90 0RF pioglitazone 30 mg tablet 30 mg PO DAILY Qty: 30 0RF hydroxyzine HCl 50 mg tablet See Rx Instructions .ROUTE .COMPLEX Qty: 60 0RF Dose Instruction: TAKE 1 TABLET BY MOUTH TWICE DAILY NEEDED for itching Rx Instructions: TAKE 1 TABLET BY MOUTH TWICE DAILY NEEDED for itching carvedilol 12.5 mg tablet 12.5 mg PO BID Qty: 180 3RF Rx Instructions: must administer with a meal/food Primary Care Provider: Carlton Rocha [facility] Referrals: Tom Sherman MD [Med Staff - Active Staff] - Disposition Disposition: Home, Self Care
[2022-12-25 12:03] LABS: Absolute Lymphocyte Count 1.48 X10^3/uL (0.83-4.51); Absolute Neutrophil Count 4.1 X10^3/uL (2.0-7.7); Basophil# 0.08 X10^3/uL; Basophil% 1.2 % (0-1); Eosinophil# 0.16 X10^3/uL; Eosinophils% 2.5 % (0-5); Hematocrit 47.7 % (37-47); Hemoglobin 15.3 g/dL (12.0-15.0); Lymphocyte # 1.48 X10^3/ul (0.83-4.51); Lymphocyte % 22.7 % (19-41); Mean Corp Hgb Conc 32.1 g/dL (32-36); Mean Corpuscular Hgb 32.4 pg (27.0-32.0); Mean Corpuscular Volume 101.1 fL (81-99); Monocyte# 0.64 X10^3/uL; Monocyte% 9.8 % (0-10); NRBC Flagged by Analyzer 0 % (0-5); Neutrophil # 4.13 X10^3/uL (2.7-7.7); Neutrophil % 63.2 % (47-70); Platelet Count 218 K/mm3 (150-450); RBC Distribution Width SD 52.5 fl (35.1-43.9); Red Blood Count 4.72 M/mm3 (4.2-5.4); White Blood Count 6.5 K/mm3 (4.4-11.0)
[2022-12-25] MEDS: 0.9% Normal Saline 1,000 ML 1000 ML IV (12:05)
[2022-12-25 12:11] LABS: Anion Gap 4 (5-15); BUN 17 mg/dL (7-18); BUN/Creat Ratio 22.9 RATIO (10-20); Calcium,Total 10.2 mg/dL (8.5-10.1); Chloride 102 mmol/L (98-107); Creatinine, Serum 0.74 mg/dL (0.55-1.02); EST Glomerular Filtration Rate 83 mL/min (>60); Est Glom Filt Rate - Afr Amer 100 mL/min (>60); Estimated Creatinine Clearance 42.59 ml/min; Glucose 180 mg/dL (74-106); Sodium Level 134 mmol/L (136-145)
--- NOTE | 2022-12-25 12:22 | CT_ITS ---
STUDY: CT ABDOMEN AND PELVIS WITHOUT CONTRAST REASON FOR EXAM: Female, 67 years old. Flank pain RADIATION DOSAGE (If Supplied By Facility): CTDIvol = ( 8.05 ) mGy, DLP = ( 402.09 ) mGycm TECHNIQUE: Transaxial images were obtained from the dome of the diaphragm to the symphysis pubis without oral contrast, and without intravenous contrast. Sagittal and coronal images were reconstructed. Individualized dose optimization techniques were used for this CT. COMPARISON: Comparison is made with prior study dated September 23, 2022. FINDINGS: The visualized lung bases are unremarkable. Coronary artery calcification. Normal liver. Normal gallbladder and extrahepatic biliary system. Normal spleen. Stable focal pancreatic calcification in the body of the pancreas. Stable enlargement of the left adrenal gland suggestive of hyperplasia. Normal right kidney. Normal left kidney. Normal visualized stomach. Normal small intestine. Moderate amount of fecal material is seen in the colon. The appendix is visualized and appears normal. There is diffuse atherosclerotic calcification of the abdominal aorta and its major visceral branches, without a demonstrated aneurysm. Normal inferior vena cava. Normal retroperitoneum. Normal urinary bladder. Calcified bilateral injection granulomas in the buttocks. There are diffuse degenerative changes of the visualized lumbar spine. Dextroscoliosis CT/Abdomen/Pelvis without Cont IMPRESSION: Stable focal pancreatic calcification abutting the pancreas. No obstructive uropathy is seen. Hypertrophy of the left adrenal gland. Electronically Signed: Daljit Jordan MD at 13:07 EDT ,
[2022-12-25 12:54] LABS: Bacteria 0 SEEN /hpf (None Seen); Mucous, Urine 0 SEEN /hpf (<or=2+); Red Blood Cells-Urine 0 SEEN /hpf (0-5); White Blood Cells 0 SEEN /hpf (0-5)
[2022-12-25 12:56] LABS: Color, Urine Yellow (Yellow); Glucose, Dipstick 1000 mg/dl (Normal); Ketone-Dipstick Negative (Negative); Leukocyte Esterase-Dipstick Negative /ul (Negative); Nitrite-Dipstick Negative (Negative); Occult Blood-Urine Negative /ul (Negative); Protein-Dipstick Negative (Negative); Urine Bilirubin Dipstick Negative (Negative); Urine Clarity Sl. Cloudy (Clear); Urine Urobilinogen Normal (Normal)
[2022-12-25 13:13] LABS: Squamous Epithelial Cells - UA 0-5 SEEN /hpf (5-10)
[2022-12-25] MEDS: traMADol 50 MG Tablet PO (13:40)
[2022-12-25 13:55] VITALS: BP 171/84; PULSE 64; RESP 16; O2SAT 98; O2SAT 99
== END 2022-12-25 14:00 | disposition home or self-care (01) ==
PROVIDERS: Nurse Practitioner; Emergency Provider Emergency Medicine; PCP Nurse Practitioner Family; Visit Provider Emergency Medicine
DX: R10.9 Unspecified abdominal pain (principal); I13.0 Hypertensive heart and chronic kidney disease with heart failure and stage 1 through stage 4 chronic kidney disease, or unspecified chronic kidney disease; I50.22 Chronic systolic (congestive) heart failure; N18.30 Chronic kidney disease, stage 3 unspecified; R30.0 Dysuria; K59.00 Constipation, unspecified; I25.10 Atherosclerotic heart disease of native coronary artery without angina pectoris; I25.2 Old myocardial infarction; G47.33 Obstructive sleep apnea (adult) (pediatric); F17.210 Nicotine dependence, cigarettes, uncomplicated; Z79.01 Long term (current) use of anticoagulants; Z86.711 Personal history of pulmonary embolism; Z95.5 Presence of coronary angioplasty implant and graft
CPT/HCPCS: 74176; 80048; 81001; 85025; 96360; 96361; 99285; J7030; A4216

== ENCOUNTER → 2023-01-30 | Outpatient (CLI) | payer MEDICARE, MEDICAID, SELFPAY ==
[2016-07-13 11:45] VITALS: BMI 31.4
--- NOTE | 2023-01-30 10:15 | BI_ITS ---
MAMMOGRAPHY - BILATERAL SCREENING REASON FOR EXAM: Female, 67 years old. Routine annual screening examination. PERTINENT HISTORY: Remote right excisional breast biopsies. TECHNIQUE: Digital bilateral breast melanie (3D mammographic acquisition) in the CC and MLO projections. 2-D mediolateral oblique (MLO) and craniocaudad (CC) views of both breasts were obtained. CAD: Full Field Digital Mammography with Computer Added Detection was performed. COMPARISON: Comparison is made with prior study dated generally 2015 and July 23, 2015. FINDINGS: Breast Composition: The breasts are almost entirely fatty. There are no dominant masses or suspicious calcifications. A loop recorder device is seen overlying the inferior medial aspect of the left breast. No other significant abnormalities are identified. There has been no significant change since the prior study. BI/SCRN MAMM (CAD)W/MELANIE BILAT IMPRESSION: Stable bilateral screening mammogram. Yearly follow-up mammogram recommended. (A) ASSESSMENT CATEGORY: BIRADS Category 2: Benign. A letter regarding these results will be sent to the patient by the facility within 30 days. Approximately 10% of breast cancers are not detected by mammography. A normal mammogram should not delay biopsy of a clinically suspicious abnormality. [id number] Electronically Signed: Daljit Jordan MD at 11:22 EDT ,
== END | disposition home or self-care (01) ==
LOC: OPBI 10:14
PROVIDERS: PCP Nurse Practitioner Family; Referring Provider Nurse Practitioner Family; Visit Provider Nurse Practitioner Family
DX: Z12.31 Encounter for screening mammogram for malignant neoplasm of breast (principal)
CPT/HCPCS: 77063; 77067

== ENCOUNTER → 2023-02-02 | Outpatient (CLI) | payer MEDICARE, MEDICAID, SELFPAY ==
[2016-07-13 11:45] VITALS: BMI 31.4
== END | disposition home or self-care (01) ==
LOC: SL 20:26
PROVIDERS: PCP Nurse Practitioner Family; Referring Provider Psychiatry & Neurology Sleep Medicine; Visit Provider Psychiatry & Neurology Sleep Medicine
DX: G47.33 Obstructive sleep apnea (adult) (pediatric) (principal); G47.00 Insomnia, unspecified; G25.81 Restless legs syndrome
CPT/HCPCS: 95810

== ENCOUNTER → 2023-06-22 | Outpatient (CLI) | payer MEDICARE, MEDICAID, SELFPAY ==
[2016-07-13 11:45] VITALS: BMI 31.4
--- NOTE | 2023-06-22 09:30 | CT_ITS ---
STUDY: CT BRAIN WITHOUT CONTRAST REASON FOR EXAM: Female, 67 years old. Recent head trauma. Patient is on anticoagulants. RADIATION DOSAGE (If Supplied By Facility): CTDIvol = ( 44.99 ) mGy, DLP = ( 897.35 ) mGycm TECHNIQUE: Transaxial CT imaging of the brain was performed without administration of intravenous contrast material. Individualized dose optimization techniques were used for this CT. COMPARISON: Comparison is made with prior study dated November 24, 2022. FINDINGS: Normal soft tissue structures. Normal calvarium. There is mild cerebral atrophy with widening of the extra-axial spaces and ventricular dilatation. There are areas of decreased attenuation within the white matter tracts of the supratentorial brain, consistent with microvascular disease changes. Normal basal ganglia and thalami. Normal brainstem. Normal cerebellum. There is no intracranial hemorrhage. There are no findings of an acute ischemic infarction. Atherosclerotic calcification of the cavernous portions of the internal carotid arteries bilaterally. Normal visualized paranasal sinuses. Nasal septal deviation towards the left side of midline. CT/Brain/Head without Contrast IMPRESSION: Chronic involutional changes of the brain. Electronically Signed: Daljit Jordan MD at 9:48 EST ,
[2023-06-22 10:51] LABS: ALB/GLOB Ratio 1.1 RATIO (0.9-2.4); AST(SGOT) 25 U/L (15-37); Alanine Aminotransfer ALT/SGPT 22 U/L (13-56); Albumin, Serum 3.8 g/dL (3.2-5.0); Alkaline Phosphatase 80 U/L (45-117); Anion Gap 6 (5-15); BUN 21 mg/dL (7-18); Calcium,Total 9.9 mg/dL (8.5-10.1); Chloride 105 mmol/L (98-107); Cholesterol 145 mg/dL (200); Creatinine, Serum 0.88 mg/dL (0.55-1.02); EST Glomerular Filtration Rate 68 mL/min (>60); Est Glom Filt Rate - Afr Amer 83 mL/min (>60); Globulin 3.4 g/dL (2.2-4.2); Glucose 157 mg/dL (74-106); High Density Lipoprotein 82 mg/dL; Protein, Total 7.2 g/dL (6.4-8.2); Sodium Level 136 mmol/L (136-145); Triglycerides 123 mg/dL; Very Low Density Lipoprotein 25 mg/dL (5-40)
== END | disposition home or self-care (01) ==
PROVIDERS: PCP Nurse Practitioner Family; Referring Provider Physician Assistant Medical; Visit Provider Physician Assistant Medical
DX: S09.90XA Unspecified injury of head, initial encounter (principal); X58.XXXA Exposure to other specified factors, initial encounter; I25.10 Atherosclerotic heart disease of native coronary artery without angina pectoris; E78.5 Hyperlipidemia, unspecified
CPT/HCPCS: 36415; 70450; 80053; 80061

== ENCOUNTER → 2023-08-20 | Outpatient (CLI) | payer MEDICARE, MEDICAID, SELFPAY ==
[2016-07-13 11:45] VITALS: BMI 31.4
--- NOTE | 2023-08-20 15:50 | RAD_ITS ---
INDICATION: ACUTE BRONCHITIS EXAMINATION/TECHNIQUE: X-RAY - XR Chest 2 Views COMPARISON: FINDINGS: LINES/DEVICES: None. LUNGS: No consolidation, edema or effusion. No pneumothorax. MEDIASTINUM AND CARDIOVASCULAR STRUCTURES: Cardiac silhouette not enlarged. Central airways and mediastinal contour are unremarkable. BONES AND SOFT TISSUES: Exaggerated thoracolumbar kyphosis. RAD/Chest PA and Lateral IMPRESSION: No radiographic evidence of acute cardiopulmonary disease. Electronically Signed: Vijay Jain DO at 16:23 EDT ,
[2023-08-20 16:24] LABS: Absolute Lymphocyte Count 1.63 X10^3/uL (0.83-4.51); Absolute Neutrophil Count 4.2 X10^3/uL (2.0-7.7); Basophil# 0.07 X10^3/uL; Eosinophil# 0.22 X10^3/uL; Eosinophils% 3.2 % (0-5); Hematocrit 43.6 % (37-47); Hemoglobin 14.1 g/dL (12.0-15.0); Lymphocyte # 1.63 X10^3/ul (0.83-4.51); Lymphocyte % 24.1 % (19-41); Mean Corp Hgb Conc 32.3 g/dL (32-36); Mean Corpuscular Hgb 30.8 pg (27.0-32.0); Mean Corpuscular Volume 95.2 fL (81-99); Mean Platelet Vol. 10.1 fl (6.2-12.0); Monocyte# 0.59 X10^3/uL; Monocyte% 8.7 % (0-10); NRBC Flagged by Analyzer 0 % (0-5); Neutrophil # 4.23 X10^3/uL (2.7-7.7); Neutrophil % 62.6 % (47-70); Platelet Count 188 K/mm3 (150-450); RBC Distribution Width CV 13.9 % (11.6-14.6); RBC Distribution Width SD 48.5 fl (35.1-43.9); Red Blood Count 4.58 M/mm3 (4.2-5.4); White Blood Count 6.8 K/mm3 (4.4-11.0)
[2023-08-20 16:57] LABS: Anion Gap 6 (5-15); BUN 23 mg/dL (7-18); BUN/Creat Ratio 30.5 RATIO (10-20); Calcium,Total 9.6 mg/dL (8.5-10.1); Chloride 109 mmol/L (98-107); Creatinine, Serum 0.76 mg/dL (0.55-1.02); EST Glomerular Filtration Rate 81 mL/min (>60); Est Glom Filt Rate - Afr Amer 98 mL/min (>60); Glucose 142 mg/dL (74-106); Potassium 4.1 mmol/L (3.5-5.1); Sodium Level 140 mmol/L (136-145)
== END | disposition home or self-care (01) ==
LOC: LAB 15:18
PROVIDERS: PCP Nurse Practitioner Family; Referring Provider Nurse Practitioner Family; Visit Provider Nurse Practitioner Family
DX: J20.9 Acute bronchitis, unspecified (principal)
CPT/HCPCS: 36415; 71046; 80048; 85025

== ENCOUNTER → 2023-10-15 | Outpatient (CLI) | payer MEDICARE, MEDICAID, SELFPAY ==
[2016-07-13 11:45] VITALS: BMI 31.4
[2023-10-15 14:19] LABS: Color, Urine Yellow (Yellow); Glucose, Dipstick 1000 mg/dl (Normal); Ketone-Dipstick Negative (Negative); Leukocyte Esterase-Dipstick 25 /ul (Negative); Nitrite-Dipstick Negative (Negative); Occult Blood-Urine 10 /ul (Negative); Protein-Dipstick Negative (Negative); Urine Bilirubin Dipstick Negative (Negative); Urine Clarity Clear (Clear); Urine Urobilinogen Normal (Normal)
== END | disposition home or self-care (01) ==
LOC: LABSPEC 13:06
PROVIDERS: PCP Nurse Practitioner Family; Visit Provider Nurse Practitioner Family
DX: R30.0 Dysuria (principal)
CPT/HCPCS: 81002; 87086; 87088; 87186

== ENCOUNTER 2023-10-22 11:13 | Emergency (ER) | payer MEDICARE, MEDICAID, SELFPAY ==
[2016-07-13 11:45] VITALS: BMI 31.4
[2023-10-22 11:14] VITALS: BP 126/56; PULSE 53; RESP 12; TEMP 36.2; O2SAT 100; BMI 29.4
--- NOTE | 2023-10-22 11:34 | EKG12_ITS ---
Test Reason : CHEST PAIN Blood Pressure : / mmHG Vent. Rate : 051 BPM Atrial Rate : 051 BPM P-R Int : 164 ms QRS Dur : 098 ms QT Int : 466 ms P-R-T Axes : 034 -51 084 degrees QTc Int : 429 ms Sinus bradycardia Left axis deviation Low voltage QRS Septal infarct , age undetermined Cannot rule out Inferior infarct , age undetermined Abnormal ECG Confirmed by Navdeep Rashid ([id number]), subeditor YUNG MUNGUIA ([id number]) on 10/24/2023 7:41:01 AM Referred By: Confirmed By:Navdeep Rashid
--- NOTE | 2023-10-22 11:35 | EX.ED.DYSGE1 ---
HPI <JAYRO Villa - Last Filed: 10/22/23 12:47> History of Present Illness Chief Complaint: Chest Pain Narrative Narrative: Patient is a 67-year-old female with history of COPD, history of MS, depression, a flutter on Eliquis, diabetes, ST elevation AZ in 2016 who presents to the emergency department for chest pain. Patient states that she started having some left-sided chest discomfort to her left shoulder that began yesterday while she was watching TV. Today, she was at a senior center doing activities when she started having more sharp pains to her left chest and they referred her to the emergency department. Patient also states that she has been diagnosed with an E. coli UTI however is not taking any of her Keflex at because she could not get it. She denies any fever chills nausea or vomiting. Patient states that the pain is constant, she states every now and then it feels hard to breathe. She still smokes 1/2 pack/day. Denies any fever or chills. PFSH <JAYRO Villa - Last Filed: 10/22/23 12:47> [facility] Medical History Dermatitis Vitamin deficiency Fatigue Headache Closed injury of head Insomnia CKD (chronic kidney disease) stage 3, GFR 30-59 ml/min Anxiety and depression Cataracts, both eyes Osteoporosis Type 2 diabetes mellitus Chronic neck pain with history of cervical spinal surgery Anemia Mural thrombus of heart Hiatal hernia History of peptic ulcer disease Essential (primary) hypertension History of ST elevation myocardial infarction (STEMI) BRYAN (obstructive sleep apnea) Multiple sclerosis Cervical spinal stenosis IBS (irritable bowel syndrome) RLS (restless legs syndrome) Takotsubo syndrome Atherosclerotic heart disease of [place] coronary artery without angina pectoris Paroxysmal atrial fibrillation Left ventricular hypertrophy Nicotine abuse Chronic systolic (congestive) heart failure Ischemic cardiomyopathy Diabetes mellitus type 2 in nonobese Apical mural thrombus with acute [place] Vitamin B12 deficiency Irritable bowel syndrome with diarrhea COPD (chronic obstructive pulmonary disease) Home Medications ?Medication ?Instructions ?Recorded ?Last Taken ?Type modafinil 200 mg tablet 200 mg PO DAILY to stay awake 12/12/19 06/06/22 History acetaminophen 500 mg tablet 1,000 mg (2 x 500 mg) PO TID PRN 07/29/20 06/06/22 Rx pain -02/03 #1 TAB cholecalciferol (vitamin D3) 125 125 mcg PO DAILY supplement 11/05/21 06/06/22 History mcg (5,000 unit) capsule ferrous sulfate 325 mg (65 mg 325 mg PO DAILY supplement 11/05/21 06/05/22 History iron) tablet aspirin 81 mg tablet,delayed 81 mg PO DAILY heart health 04/01/22 06/06/22 History release (Adult Aspirin Regimen) ascorbic acid (vitamin C) 500 mg 500 mg PO DAILY supplement 06/06/22 06/06/22 History chewable tablet atorvastatin 40 mg tablet 40 mg PO QHS cholesterol 06/06/22 06/05/22 History dapagliflozin propanediol 10 mg 10 mg PO QAM DM 06/06/22 06/06/22 History tablet (Farxiga) denosumab 60 mg/mL subcutaneous 60 mg subcut [id number] bone health 06/06/22 Unknown History syringe (Prolia) albuterol sulfate 2.5 mg/3 mL 2.5 mg (3 mL) inhalation Q8H PRN 07/21/22 Unknown Rx (0.083 %) solution for nebulization Dyspnea, wheezing #180 mL blood sugar diagnostic (Accu-Chek #100 ea 07/29/22 Unknown Rx Ada Plus test strips) ondansetron 4 mg disintegrating 4 mg PO Q8H PRN nausea and 09/02/22 Unknown Rx tablet vomiting #30 tabs pantoprazole 40 mg tablet,delayed 40 mg PO DAILY gerd #90 tabs 09/04/22 Unknown Rx release calcium carbonate (Calcium 600) 600 mg PO DAILY 09/11/22 Unknown History dicyclomine 20 mg tablet 20 mg PO BID PRN abdominal pain 09/11/22 Unknown History donepezil 10 mg tablet 20 mg PO .QLunch 09/11/22 Unknown History insulin lispro 100 unit/mL 1 sliding scale dose subcut QAC 09/11/22 Unknown History subcutaneous pen nitroglycerin 0.4 mg sublingual 0.4 mg sublingual Q5-15M #25 tabs 09/11/22 Unknown Rx tablet hydrocortisone 2.5 % topical cream 1 applic topical BID PRN skin 09/12/22 Unknown Rx irritation #454 grams sucralfate 1 gram tablet 1 g PO 4X/DAY PRN reflux #180 tabs 10/02/22 Unknown Rx ropinirole 2 mg tablet 2 mg PO QHS restless leg #30 tabs 10/21/22 Unknown Rx albuterol sulfate 90 mcg/actuation 2 puff inhalation Q6H PRN 10/29/22 Unknown Rx aerosol inhaler shortness of breath or wheezing #8.5 grams pioglitazone 30 mg tablet 30 mg PO DAILY diabetes #30 tabs 11/17/22 Unknown Rx hydroxyzine HCl 50 mg tablet See Rx Instructions .Route 11/21/22 Unknown Rx .COMPLEX #60 tabs carvedilol 12.5 mg tablet 12.5 mg PO BID this is a dose 12/23/22 Unknown Rx increase #180 tabs losartan 50 mg tablet 50 mg PO BID this is a dose 01/06/23 Unknown Rx increase #180 tabs vibegron 75 mg tablet (Gemtesa) 75 mg PO DAILY 01/30/23 Unknown History cyclobenzaprine 5 mg tablet mg PO 02/11/23 Unknown History doxycycline monohydrate 100 mg mg PO 04/14/23 Unknown History capsule tirzepatide 5 mg/0.5 mL mg subcut 04/14/23 Unknown History subcutaneous pen injector (Mounjaro) isosorbide mononitrate 30 mg 30 mg PO BID heart #180 tabs 06/22/23 Unknown Rx tablet,extended release 24 hr lidocaine 5 % topical patch 1 patch topical DAILY 06/22/23 Unknown History (Lidoderm) oxycodone 5 mg capsule 5 mg PO DAILY PRN 06/22/23 Unknown History ramelteon 8 mg tablet 8 mg PO QHS PRN sleep #90 tabs 07/14/23 Unknown Rx apixaban 5 mg tablet (Eliquis) 5 mg PO BID #180 tabs 10/02/23 Unknown Rx duloxetine 30 mg capsule,delayed 30 mg PO BID mental health #180 10/13/23 Unknown Rx release (Cymbalta) caps quetiapine 100 mg tablet See Rx Instructions .Route 10/13/23 Unknown Rx .COMPLEX #90 tabs quetiapine 25 mg tablet 25 mg PO QHS #90 tabs 10/13/23 Unknown Rx Allergy/AdvReac Type Severity Reaction Status Date / Time indomethacin (From Indocin) Allergy Hives Verified 10/22/23 11:48 indomethacin sodium (From Allergy Hives Verified 10/22/23 11:48 Indocin) iodine Allergy Hives Verified 10/22/23 11:48 propoxyphene napsylate (From Allergy Out of Verified 10/22/23 11:48 Darvocet-N) control trazodone AdvReac Intermediate Other Verified 10/22/23 11:48 aripiprazole (From Abilify) AdvReac Other Verified 10/22/23 11:48 aspirin AdvReac Upset Verified 10/22/23 11:48 Stomach clindamycin AdvReac Nausea Verified 10/22/23 11:48 metformin AdvReac Other Verified 10/22/23 11:48 sumatriptan (From Imitrex) AdvReac Vomiting Verified 10/22/23 11:48 Family History Father Cancer Lung cancer Mother Cancer Pancreatic cancer Surgical History Hx of bilateral cataract extraction (~03/2022) History of endoscopy History of left heart catheterization (09/25/20) History of loop recorder (06/2014) History of amputation of left great toe History of left knee surgery History of tonsillectomy and adenoidectomy History of back surgery History of cervical discectomy History of coronary artery stent placement (04/08/16) Social History household members: none Smoking Status: Current every day smoker tobacco type: cigarettes alcohol intake: never substance use type: does not use caffeine: Yes Type: coffee Number of servings: 1 what type of physical activity do you participate in: none and other details: Physical Therapy ROS <JAYRO Villa - Last Filed: 10/22/23 12:47> ROS ED ROS Narrative Constitutional: Negative for fever, chills, weight loss, weakness Eyes: Negative for vision loss, vision change, double vision ENT: Negative for any sore throat, ear pain, congestion Cardiovascular: Negative for any tightness, palpitations. Positive for chest pain Respiratory: Negative for any cough, sputum production, hemoptysis, dyspnea, dyspnea on exertion, orthopnea Gastrointestinal: Negative for any abdominal pain, nausea, vomiting, diarrhea, constipation, blood in stool, blood in vomit : Negative for any urinary frequency, dysuria, retention, blood in urine Muscle skeletal: Negative for any neck pain, back pain Neurological: Negative for any headache, syncope, dizziness Skin: Negative for any rashes, itching, abrasions, lacerations Psychiatric: Negative for any depression, anxiety, stress, suicidal ideation, homicidal ideation Hematologic: Negative for any excessive bruising, easy bleeding EXAM <JAYRO Villa - Last Filed: 10/22/23 12:47> Physical Exam Narrative Exam Narrative: Vital signs reviewed. HEET: Head normocephalic atraumatic, TMs clear bilaterally. Posterior pharynx is clear, moist mucous membranes. Nares clear bilaterally. 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 Neck: Supple with no lymphadenopathy or tenderness. No signs of meningismus. Cardiac: Bradycardia no murmurs gallops or rubs, equal peripheral pulses bilaterally. Respiratory: Lungs clear to auscultation bilaterally. No chest tenderness. Abdomen: Soft, nontender, nondistended. No abdominal bruit or pulsatile masses. No hepatosplenomegaly Extremities: No peripheral edema, no signs of gross trauma or deformity. Active full range of motion of all extremities. Neuro: Cranial nerves II through XII intact, no focal neurological deficits. Skin: Clean dry and intact with no rash, purpura, petechiae, vesicles or pustules. Backs/flank: No CVA tenderness, no midline spinal tenderness, no deformity. Psych: Normal mood and affect. No SI, HI or acute psychosis. Const Vital Signs: 10/22/23 11:14 10/22/23 11:50 Temperature 97.1 F L Temperature Source Temporal Pulse Rate 53 L Respiratory Rate 12 Respiratory Pattern Normal Blood Pressure 126/56 H Blood Pressure Mean 79 Pulse Ox 100 Oxygen Delivery Method Room Air <Dr. Yuval Luciano MD - Last Filed: 10/22/23 12:39> Physical Exam Const Vital Signs: 10/22/23 11:14 10/22/23 11:50 Temperature 97.1 F L Temperature Source Temporal Pulse Rate 53 L Respiratory Rate 12 Respiratory Pattern Normal Blood Pressure 126/56 H Blood Pressure Mean 79 Pulse Ox 100 Oxygen Delivery Method Room Air MDM <JAYRO Villa - Last Filed: 10/22/23 12:47> [facility] Lab Data Labs: Laboratory Results - last 24 hr 10/22/23 11:44 WBC 7.8 RBC 4.94 Hgb 15.2 H Hct 47.9 H MCV 97.0 MCH 30.8 MCHC 31.7 L RDW Std Deviation 49.8 H RDW Coeff of Yeimi 14.0 Plt Count 186 MPV 10.0 Immature Gran % (Auto) 0.400 Neut % (Auto) 63.8 Lymph % (Auto) 22.2 Caroline % (Auto) 8.7 Eos % (Auto) 3.6 Baso % (Auto) 1.3 H Absolute Neuts (auto) 5.0 Absolute Lymphs (auto) 1.73 Nucleated RBC % 0 PT 14.1 INR 1.1 Sodium 140 Potassium 4.8 Chloride 109 H Carbon Dioxide 29.0 Anion Gap 2 L BUN 25 H Creatinine 0.75 Estim Creat Clear Calc 62.94 Est GFR (MDRD) Af Amer 98 Est GFR (MDRD) Non-Af 81 BUN/Creatinine Ratio 33.2 H Glucose 101 Calcium 9.6 Troponin I High Sens 6 B-Natriuretic Peptide 171.5 H Radiography Diagnostic Testing: Clinical Impression(s) from Imaging Studies Chest X-Ray 10/22/23 12:00 IMPRESSION: No acute abnormality is seen. Electronically Signed: Daljit Jordan MD at 12:14 EDT , EKG Sinus bradycardia, rate of 51 bpm, : Attestation: I personally reviewed and interpreted this EKG as follows: Comments: Sinus bradycardia, rate of 51 bpm, KS interval 164 ms, QRS duration 98 ms, no acute ST elevation, no acute infarct noted. Treatment and Re-Evaluation :: Differential diagnosis includes however is not limited to: ACS, [place], pneumonia, muscle skeletal chest pain, pleural effusion, NSTEMI patient appears to be in no obvious distress, patient's vital signs are stable. Presenting to the emergency department complaints of chest pain. Patient received a cardiac workup including 1 troponin secondary to the chest pain being continuous since last evening. Patient has been unable to get her Keflex filled for UTI, patient be given the Keflex here. Patient has no back pain, no fever chills nausea or vomiting. Patient received a chest x-ray to rule out a pneumonia, effusion. Patient will be reevaluated. On reevaluation, the patient was resting comfortably. Patient's chest x-ray showed no acute abnormality seen. Patient's laboratory values show a normal CBC, slightly hemoconcentrated with a hemoglobin of 15.2 over the seems to be baseline for the patient. Patient's PT and INR was within normal limits, patient's chemistries show normal kidney function, patient's BNP was only slightly elevated 171, patient's troponin was 6 which is negative. EKG was unremarkable showing only bradycardia. There is no evidence of any ACS, [place], no cardiopulmonary pathology. Patient was given Tylenol, patient was also given GI medication. She will start the Keflex that was prescribed to her later tonight, she was given her first dose this morning. She verbally understands how important it is. She instructed return for any worsening symptoms. Patient stable for discharge. <Dr. Yuval Luciano MD - Last Filed: 10/22/23 12:39> [facility] Narrative Medical decision making narrative: I have personally performed a face to face assessment of the patient and have reviewed the DAJUAN Note. I performed a substantive portion of the visit including all aspects of the following. My [place] findings include: History is left-sided chest pain that has been bothersome not severe nonpleuritic since last night, presents around 11 AM with persistent discomfort overnight. Not necessarily worse with lying down. Not worse with movement or walking. Has COPD, symptoms have been stable no dyspnea or cough/fever. No edema in her legs. On Eliquis denies any bleeding recently. A little nausea no vomiting. Exam is comfortable and NAD. No calf tenderness or pedal edema. Heart regular no murmurs no tachycardia, lungs clear to auscultation throughout diminished symmetrically, conversive in full sentences no JVD. Medical Decison Making cardiac workup reviewed and troponin is in the single digits, well within normal limits after more than 12 hours of continuous discomfort ruling out acute coronary syndrome with an unchanged, noninjurious EKG. 2 view chest x-ray my interpretation is showing chronic COPD-related changes but nothing acute. I reviewed EKG as well it is unchanged. Patient reassured she want something for nausea and pain, she is not in severe discomfort and well-appearing. My suspicion is that this could be GI-related under the circumstances and history and ancillaries. We are giving her Zofran in addition to Mylanta and Pepcid to go along with the pantoprazole she already takes. Recently diagnosed with UTI were given her a dose of her cephalexin since she has not received the prescription yet. Other additions or changes: [None] Lab Data Labs: Laboratory Results - last 24 hr 10/22/23 11:44 WBC 7.8 RBC 4.94 Hgb 15.2 H Hct 47.9 H MCV 97.0 MCH 30.8 MCHC 31.7 L RDW Std Deviation 49.8 H RDW Coeff of Yeimi 14.0 Plt Count 186 MPV 10.0 Immature Gran % (Auto) 0.400 Neut % (Auto) 63.8 Lymph % (Auto) 22.2 Caroline % (Auto) 8.7 Eos % (Auto) 3.6 Baso % (Auto) 1.3 H Absolute Neuts (auto) 5.0 Absolute Lymphs (auto) 1.73 Nucleated RBC % 0 PT 14.1 INR 1.1 Sodium 140 Potassium 4.8 Chloride 109 H Carbon Dioxide 29.0 Anion Gap 2 L BUN 25 H Creatinine 0.75 Estim Creat Clear Calc 62.94 Est GFR (MDRD) Af Amer 98 Est GFR (MDRD) Non-Af 81 BUN/Creatinine Ratio 33.2 H Glucose 101 Calcium 9.6 Troponin I High Sens 6 B-Natriuretic Peptide 171.5 H Radiography Diagnostic Testing: Clinical Impression(s) from Imaging Studies Chest X-Ray 10/22/23 12:00 IMPRESSION: No acute abnormality is seen. Electronically Signed: Daljit Jordan MD at 12:14 EDT , Discharge Plan Triage Chief Complaint: Chest Pain ED Midlevel Provider: Nikita Grier ED Provider: Yuval Luciano Dx/Rx/DC Orders Clinical Impression: Chest pain Instructions: ED Chest Pain, Noncardiac Prescriptions: No Action cholecalciferol (vitamin D3) 125 mcg (5,000 unit) capsule 125 mcg PO DAILY ferrous sulfate 325 mg (65 mg iron) tablet 325 mg PO DAILY aspirin [Adult Aspirin Regimen] 81 mg tablet,delayed release (DR/EC) 81 mg PO DAILY donepezil 10 mg tablet 20 mg PO .QLunch insulin lispro 100 unit/mL insulin pen 1 sliding scale dose subcut [facility] Patient Comments: Use with meals based on PRE meal blood sugar SLIDING SCALE as needed #1 (1 unit for every 50 over 150) Max 20 units daily. calcium carbonate [Calcium 600] 600 mg calcium (1,500 mg) tablet 600 mg PO DAILY dicyclomine 20 mg tablet 20 mg PO BID PRN (Reason: abdominal pain) Patient Comments: TAKE 1 TABLET BY MOUTH TWICE DAILY NEEDED FOR ABDOMINAL DISCOMFORT nitroglycerin 0.4 mg tablet, sublingual 0.4 mg sublingual Q5-15M Qty: 25 3RF albuterol sulfate 2.5 mg /3 mL (0.083 %) solution for nebulization 2.5 mg inhalation Q8H PRN (Reason: Dyspnea, wheezing) Qty: 180 0RF hydrocortisone 2.5 % cream 1 applic topical BID PRN (Reason: skin irritation) Qty: 454 1RF cyclobenzaprine 5 mg tablet PO Patient Comments: Take 1 tablet by mouth twice daily as needed for muscle spasm. Gemtesa 75 mg tablet 75 mg PO DAILY doxycycline monohydrate 100 mg capsule PO Patient Comments: TAKE 1 CAPSULE BY MOUTH TWICE DAILY NEEDED for a flareup Mounjaro 5 mg/0.5 mL pen injector subcut Patient Comments: INJECT 5MG SUBCUTANEOUSLY EVERY WEEK oxycodone 5 mg capsule 5 mg PO DAILY PRN lidocaine [Lidoderm] 5 % adhesive patch,medicated 1 patch topical DAILY Rx Instructions: leave on most painful area for up to 12 hrs isosorbide mononitrate 30 mg tablet extended release 24 hr 30 mg PO BID Qty: 180 3RF ramelteon 8 mg tablet 8 mg PO QHS PRN (Reason: sleep) Qty: 90 1RF quetiapine 25 mg tablet 25 mg PO QHS Qty: 90 0RF Rx Instructions: To be taken with 100 mg tablet at bedtime for nightly dose of 125 mg qHS duloxetine [Cymbalta] 30 mg capsule,delayed release(DR/EC) 30 mg PO BID Qty: 180 2RF quetiapine 100 mg tablet See Rx Instructions .ROUTE .COMPLEX Qty: 90 1RF Dose Instruction: TAKE 1 TABLET BY MOUTH EVERY NIGHT AT BEDTIME for mood Rx Instructions: TAKE 1 TABLET BY MOUTH EVERY NIGHT AT BEDTIME for mood modafinil 200 MG tablet 200 mg PO DAILY acetaminophen 500 MG tablet 1,000 mg PO TID PRN (Reason: pain -02/03) Qty: 1 0RF Rx Instructions: alternate with ibuprofen atorvastatin 40 mg tablet 40 mg PO QHS ascorbic acid (vitamin C) 500 mg tablet,chewable 500 mg PO DAILY Prolia 60 mg/mL syringe 60 mg subcut [id number] Farxiga 10 mg tablet 10 mg PO QAM (DME) Accu-Chek Ada Plus test strp Strip See Rx Instructions .Route Qty: 100 6RF Rx Instructions: As directed ondansetron 4 mg tablet,disintegrating 4 mg PO Q8H PRN (Reason: nausea and vomiting) Qty: 30 1RF pantoprazole 40 mg tablet,delayed release (DR/EC) 40 mg PO DAILY Qty: 90 1RF sucralfate 1 gram tablet 1 g PO 4X/DAY PRN (Reason: reflux) Qty: 180 1RF ropinirole 2 mg tablet 2 mg PO QHS Qty: 30 1RF Rx Instructions: administer 1-3 hours before bedtime albuterol sulfate 90 mcg/actuation HFA aerosol inhaler 2 puff inhalation Q6H PRN (Reason: shortness of breath or wheezing) Qty: 8.5 2RF pioglitazone 30 mg tablet 30 mg PO DAILY Qty: 30 0RF hydroxyzine HCl 50 mg tablet See Rx Instructions .ROUTE .COMPLEX Qty: 60 0RF Dose Instruction: TAKE 1 TABLET BY MOUTH TWICE DAILY NEEDED for itching Rx Instructions: TAKE 1 TABLET BY MOUTH TWICE DAILY NEEDED for itching carvedilol 12.5 mg tablet 12.5 mg PO BID Qty: 180 3RF Rx Instructions: must administer with a meal/food losartan 50 mg tablet 50 mg PO BID Qty: 180 3RF Eliquis 5 mg tablet 5 mg PO BID Qty: 180 3RF Primary Care Provider: Carlton Rocha Referrals: Carlton Rocha, PAI GOW MANAGER-C [Primary Care Provider] - Activity Restrictions/Additional Instructions: Please follow-up outpatient. Take your Keflex as soon as you get it. Return for any worsening symptoms Print Language: Spanish Disposition Disposition: Home, Self Care
[2023-10-22 11:57] LABS: Absolute Lymphocyte Count 1.73 X10^3/uL (0.83-4.51); Basophil% 1.3 % (0-1); Eosinophil# 0.28 X10^3/uL; Eosinophils% 3.6 % (0-5); Hematocrit 47.9 % (37-47); Hemoglobin 15.2 g/dL (12.0-15.0); Lymphocyte # 1.73 X10^3/ul (0.83-4.51); Lymphocyte % 22.2 % (19-41); Mean Corp Hgb Conc 31.7 g/dL (32-36); Mean Corpuscular Hgb 30.8 pg (27.0-32.0); Monocyte# 0.68 X10^3/uL; Monocyte% 8.7 % (0-10); NRBC Flagged by Analyzer 0 % (0-5); Neutrophil # 4.99 X10^3/uL (2.7-7.7); Neutrophil % 63.8 % (47-70); Platelet Count 186 K/mm3 (150-450); RBC Distribution Width SD 49.8 fl (35.1-43.9); Red Blood Count 4.94 M/mm3 (4.2-5.4); White Blood Count 7.8 K/mm3 (4.4-11.0)
--- NOTE | 2023-10-22 12:00 | RAD_ITS ---
STUDY: X-RAY CHEST REASON FOR EXAM: Female, 67 years old. Chest pain TECHNIQUE: PA and lateral views of the chest. COMPARISON: Comparison is made with prior study dated August 20, 2023. FINDINGS: EKG electrodes are seen. Mild linear scarring at the lung bases. There is no demonstrated pleural abnormality. Normal size heart. Normal mediastinum and sara. Normal visualized pulmonary arteries. There is atherosclerotic tortuosity of the aortic arch and descending thoracic aorta. There are diffuse degenerative changes of the visualized thoracic spine. Normal visualized ribs, clavicles, and shoulders. Hiatal hernia. RAD/Chest PA and Lateral IMPRESSION: No acute abnormality is seen. Electronically Signed: Daljit Jordan MD at 12:14 EDT ,
[2023-10-22 12:22] LABS: BNP,B-Type NATRIURETIC PEPTIDE 171.5 pg/mL (0-100)
[2023-10-22 12:23] LABS: International Normalized Ratio 1.1; Prothrombin Time (Protime)PT. 14.1 SECONDS (11.7-14.9)
[2023-10-22 12:25] LABS: Anion Gap 2 (5-15); BUN 25 mg/dL (7-18); BUN/Creat Ratio 33.2 RATIO (10-20); Calcium,Total 9.6 mg/dL (8.5-10.1); Chloride 109 mmol/L (98-107); Creatinine, Serum 0.75 mg/dL (0.55-1.02); EST Glomerular Filtration Rate 81 mL/min (>60); Est Glom Filt Rate - Afr Amer 98 mL/min (>60); Estimated Creatinine Clearance 62.94 ml/min; Glucose 101 mg/dL (74-106); Potassium 4.8 mmol/L (3.5-5.1); Sodium Level 140 mmol/L (136-145); Troponin-I HS (w/2H Reflex) 6 pg/mL (3.0-54.0)
[2023-10-22] MEDS: Cephalexin 250 MG Capsule 500 MG PO (12:27)
[2023-10-22] MEDS: Acetaminophen 500 MG Tablet 1000 MG PO (12:55)
[2023-10-22] MEDS: Ondansetron 4 MG/2 ML Vial IV (12:55)
[2023-10-22] MEDS: Mag Hydrox/Al Hydrox/Simeth 30 ML UDC PO (12:55)
[2023-10-22] MEDS: Famotidine 20 MG Tablet 40 MG PO (12:55)
[2023-10-22 12:57] VITALS: BP 126/53; PULSE 56; RESP 15; TEMP 36.2; O2SAT 99
[2023-10-22 13:47] LABS: Reflex Troponin-HS? (from REC) Y
== END 2023-10-22 13:15 | disposition home or self-care (01) ==
PROVIDERS: Nurse Practitioner; Emergency Provider Emergency Medicine; PCP Nurse Practitioner Family; Visit Provider Emergency Medicine
DX: R07.9 Chest pain, unspecified (principal); I50.22 Chronic systolic (congestive) heart failure; I13.0 Hypertensive heart and chronic kidney disease with heart failure and stage 1 through stage 4 chronic kidney disease, or unspecified chronic kidney disease; J44.9 Chronic obstructive pulmonary disease, unspecified; I48.0 Paroxysmal atrial fibrillation; E11.22 Type 2 diabetes mellitus with diabetic chronic kidney disease; Z79.4 Long term (current) use of insulin; I25.10 Atherosclerotic heart disease of native coronary artery without angina pectoris; Z79.01 Long term (current) use of anticoagulants; I25.2 Old myocardial infarction; Z79.82 Long term (current) use of aspirin; Z79.899 Other long term (current) drug therapy; G25.81 Restless legs syndrome; F41.8 Other specified anxiety disorders; Z95.5 Presence of coronary angioplasty implant and graft; Z98.41 Cataract extraction status, right eye; Z98.42 Cataract extraction status, left eye; F17.210 Nicotine dependence, cigarettes, uncomplicated
CPT/HCPCS: 71046; 80048; 83880; 84484; 85025; 85610; 93005; 96374; 99285; A4216; J2405

== ENCOUNTER → 2024-06-21 | Outpatient (CLI) | payer MEDICARE, MEDICAID, SELFPAY ==
[2016-07-13 11:45] VITALS: BMI 31.4
[2024-06-21 13:17] LABS: Color, Urine Yellow (Yellow); Glucose, Dipstick Normal (Normal); Ketone-Dipstick Negative (Negative); Leukocyte Esterase-Dipstick 25 /ul (Negative); Nitrite-Dipstick Negative (Negative); Occult Blood-Urine Negative /ul (Negative); Protein-Dipstick 15 mg/dl (Negative); Urine Bilirubin Dipstick Negative (Negative); Urine Clarity Clear (Clear); Urine Urobilinogen 1 mg/dl (Normal)
== END | disposition home or self-care (01) ==
LOC: LABSPEC 10:07
PROVIDERS: PCP Nurse Practitioner Family
DX: R30.0 Dysuria (principal)
CPT/HCPCS: 81002; 87086; 87088; 87186

== ENCOUNTER 2024-06-25 15:27 | Emergency (ER) | payer MEDICARE, MEDICAID, SELFPAY ==
[2016-07-13 11:45] VITALS: BMI 31.4
[2024-06-25 15:27] VITALS: BP 144/62; PULSE 64; RESP 21; TEMP 36.6; O2SAT 99; BMI 29.9
--- NOTE | 2024-06-25 15:51 | EKG12_ITS ---
Test Reason : cp Blood Pressure : */* mmHG Vent. Rate : 62 BPM Atrial Rate : 62 BPM P-R Int : 158 ms QRS Dur : 98 ms QT Int : 390 ms P-R-T Axes : 26 -43 60 degrees QTcB Int : 395 ms Normal sinus rhythm Left axis deviation Low voltage QRS Septal infarct (cited on or before 21-Oct-2016) Abnormal ECG Confirmed by Navdeep Rashid ([id number]), non linear editor ARABELLA CHRISTIANSON ([id number]) on 06/27/2024 7:05:05 AM Referred By: Yash/flako Confirmed By: Navdeep Rashid
--- NOTE | 2024-06-25 16:00 | RAD_ITS ---
PROCEDURE: CHEST PA AND LATERAL REASON FOR EXAM: Chest pain TECHNIQUE: Frontal and lateral views of the chest. COMPARISON: None. 10/22/2023 FINDINGS: The heart size is normal. The mediastinal contour is unremarkable. Pulmonary vasculature is congested. The bones are unremarkable. RAD/Chest PA and Lateral IMPRESSION: Mild pulmonary vascular congestion Reading Location: [facility]
[2024-06-25 16:08] LABS: Absolute Lymphocyte Count 1.19 X10^3/uL (0.83-4.51); Absolute Neutrophil Count 3.5 X10^3/uL (2.0-7.7); Basophil# 0.06 X10^3/uL; Basophil% 1.1 % (0-1); Eosinophil# 0.21 X10^3/uL; Eosinophils% 3.8 % (0-5); Hematocrit 38.4 % (37-47); Hemoglobin 12.4 g/dL (12.0-15.0); Lymphocyte # 1.19 X10^3/ul (0.83-4.51); Lymphocyte % 21.4 % (19-41); Mean Corp Hgb Conc 32.3 g/dL (32-36); Mean Corpuscular Hgb 29.2 pg (27.0-32.0); Mean Corpuscular Volume 90.4 fL (81-99); Mean Platelet Vol. 10.1 fl (6.2-12.0); Monocyte# 0.53 X10^3/uL; Monocyte% 9.5 % (0-10); NRBC Flagged by Analyzer 0 % (0-5); Neutrophil # 3.54 X10^3/uL (2.7-7.7); Neutrophil % 63.8 % (47-70); Platelet Count 303 K/mm3 (150-450); RBC Distribution Width CV 14.6 % (11.6-14.6); RBC Distribution Width SD 48.2 fl (35.1-43.9); Red Blood Count 4.25 M/mm3 (4.2-5.4); White Blood Count 5.6 K/mm3 (4.4-11.0)
[2024-06-25 16:27] VITALS: BP 129/66; PULSE 61; RESP 18; O2SAT 96
[2024-06-25 16:35] LABS: Anion Gap 10 (5-15); BUN 20 mg/dL (4-19); BUN/Creat Ratio 31.6 RATIO (10-20); Carbon Dioxide 24.4 mmol/L (22.0-29.0); Chloride 101 mmol/L (96-108); Creatinine, Serum 0.63 mg/dL (0.70-1.20); EST Glomerular Filtration Rate 96 (>60); Estimated Creatinine Clearance 60.98 ml/min (50-250); Glucose 159 mg/dL (70-99); Pro- Brain NATRIURETIC PEPTIDE 347 pg/mL (<=900); Sodium Level 136 mmol/L (133-145); Troponin T High Sensitivity 12 ng/L (<=14)
--- NOTE | 2024-06-25 16:42 | ED.VIS.CHEST ---
HPI History of Present Illness Chief Complaint: Chest Pain Informant: patient Narrative Narrative: Patient is a 68 year old female with extensive medical history including chronic pain, MS, long-term anticoagulation with Eliquis, COPD, type 2 diabetes mellitus, proximal atrial fibrillation, ischemic cardiomyopathy, coronary artery status post tenting, BRYAN IBS and recent urinary tract infection (currently on Augmentin for culture) presenting with chest pain. Patient states lately she has been more tired but this morning when she got up she had left-sided chest pressure. States it feels like there is something on her chest. She is the discomfort radiates to her left shoulder and then down her arm. She is concerned that she could be dehydrated when she checked the tenting of her skin. She denies any difficulty breathing. Does not report any swelling of her legs. Denies any GI symptoms. No she has had some mild right flank pain and attributes that to her UTI. Denies any fever. [facility] Medical History Dermatitis Vitamin deficiency Fatigue Headache Closed injury of head Insomnia CKD (chronic kidney disease) stage 3, GFR 30-59 ml/min Anxiety and depression Cataracts, both eyes Osteoporosis Type 2 diabetes mellitus Chronic neck pain with history of cervical spinal surgery Anemia Mural thrombus of heart Hiatal hernia History of peptic ulcer disease Essential (primary) hypertension History of ST elevation myocardial infarction (STEMI) BRYAN (obstructive sleep apnea) Multiple sclerosis Cervical spinal stenosis IBS (irritable bowel syndrome) RLS (restless legs syndrome) Takotsubo syndrome Atherosclerotic heart disease of [place] coronary artery without angina pectoris Paroxysmal atrial fibrillation Left ventricular hypertrophy Nicotine abuse Chronic systolic (congestive) heart failure Ischemic cardiomyopathy Diabetes mellitus type 2 in nonobese Apical mural thrombus with acute [place] Vitamin B12 deficiency Irritable bowel syndrome with diarrhea COPD (chronic obstructive pulmonary disease) Home Medications ?Medication ?Instructions ?Recorded ?Last Taken ?Type modafinil 200 mg tablet 200 mg PO DAILY to stay awake 12/12/19 06/06/22 History acetaminophen 500 mg tablet 1,000 mg (2 x 500 mg) PO TID PRN 07/29/20 06/06/22 Rx pain -02/03 #1 TAB cholecalciferol (vitamin D3) 125 125 mcg PO DAILY supplement 11/05/21 06/06/22 History mcg (5,000 unit) capsule ferrous sulfate 325 mg (65 mg 325 mg PO DAILY supplement 11/05/21 06/05/22 History iron) tablet aspirin 81 mg tablet,delayed 81 mg PO DAILY heart health 04/01/22 06/06/22 History release (Adult Aspirin Regimen) ascorbic acid (vitamin C) 500 mg 500 mg PO DAILY supplement 06/06/22 06/06/22 History chewable tablet atorvastatin 40 mg tablet 40 mg PO QHS cholesterol 06/06/22 06/05/22 History dapagliflozin propanediol 10 mg 10 mg PO QAM DM 06/06/22 06/06/22 History tablet (Farxiga) denosumab 60 mg/mL subcutaneous 60 mg subcut [id number] bone health 06/06/22 Unknown History syringe (Prolia) albuterol sulfate 2.5 mg/3 mL 2.5 mg (3 mL) inhalation Q8H PRN 07/21/22 Unknown Rx (0.083 %) solution for nebulization Dyspnea, wheezing #180 mL blood sugar diagnostic (Accu-Chek #100 ea 07/29/22 Unknown Rx Ada Plus test strips) ondansetron 4 mg disintegrating 4 mg PO Q8H PRN nausea and 09/02/22 Unknown Rx tablet vomiting #30 tabs pantoprazole 40 mg tablet,delayed 40 mg PO DAILY gerd #90 tabs 09/04/22 Unknown Rx release donepezil 10 mg tablet 20 mg PO .QLunch 09/11/22 Unknown History insulin lispro 100 unit/mL 1 sliding scale dose subcut QAC 09/11/22 Unknown History subcutaneous pen nitroglycerin 0.4 mg sublingual 0.4 mg sublingual Q5-15M #25 tabs 09/11/22 Unknown Rx tablet hydrocortisone 2.5 % topical cream 1 applic topical BID PRN skin 09/12/22 Unknown Rx irritation #454 grams albuterol sulfate 90 mcg/actuation 2 puff inhalation Q6H PRN 10/29/22 Unknown Rx aerosol inhaler shortness of breath or wheezing #8.5 grams pioglitazone 30 mg tablet 30 mg PO DAILY diabetes #30 tabs 11/17/22 Unknown Rx hydroxyzine HCl 50 mg tablet See Rx Instructions .Route 11/21/22 Unknown Rx .COMPLEX #60 tabs vibegron 75 mg tablet (Gemtesa) 75 mg PO DAILY 01/30/23 Unknown History isosorbide mononitrate 30 mg 30 mg PO BID heart #180 tabs 06/22/23 Unknown Rx tablet,extended release 24 hr lidocaine 5 % topical patch 1 patch topical DAILY 06/22/23 Unknown History (Lidoderm) oxycodone 5 mg capsule 5 mg PO DAILY PRN 06/22/23 Unknown History apixaban 5 mg tablet (Eliquis) 5 mg PO BID #180 tabs 10/02/23 Unknown Rx carvedilol 12.5 mg tablet 12.5 mg PO BID this is a dose 11/23/23 Unknown Rx increase #180 tabs losartan 50 mg tablet 50 mg PO BID #180 tabs 12/14/23 Unknown Rx ropinirole 2 mg tablet 2 mg PO QHS restless leg 03/01/24 Unknown History sucralfate 1 gram tablet 1 g PO 4X/DAY reflux 03/01/24 Unknown History duloxetine 30 mg capsule,delayed 30 mg PO BID mental health #180 05/03/24 Unknown Rx release (Cymbalta) caps quetiapine 100 mg tablet See Rx Instructions .Route 05/03/24 Unknown Rx .COMPLEX #90 tabs quetiapine 25 mg tablet 25 mg PO QHS #90 tabs 05/03/24 Unknown Rx ramelteon 8 mg tablet 8 mg PO QHS PRN sleep #90 tabs 05/03/24 Unknown Rx ropinirole 1 mg tablet 1 mg PO QDAY 05/03/24 Unknown History tirzepatide 5 mg/0.5 mL 10 mg subcut 05/03/24 Unknown History subcutaneous pen injector (Mounjaro) cephalexin 500 mg capsule 500 mg PO Q12 #10 CAPSULES 06/25/24 Unknown Rx Allergy/AdvReac Type Severity Reaction Status Date / Time vancomycin Allergy Severe Anaphylaxis Verified 06/25/24 15:28 indomethacin (From Indocin) Allergy Hives Verified 06/25/24 15:28 indomethacin sodium (From Allergy Hives Verified 06/25/24 15:28 Indocin) iodine Allergy Hives Verified 06/25/24 15:28 propoxyphene napsylate (From Allergy Out of Verified 06/25/24 15:28 Darvocet-N) control trazodone AdvReac Intermediate Other Verified 06/25/24 15:28 aripiprazole (From Abilify) AdvReac Other Verified 06/25/24 15:28 aspirin AdvReac Upset Verified 06/25/24 15:28 Stomach clindamycin AdvReac Nausea Verified 06/25/24 15:28 metformin AdvReac Other Verified 06/25/24 15:28 sumatriptan (From Imitrex) AdvReac Vomiting Verified 06/25/24 15:28 Family History Father Cancer Lung cancer Mother Cancer Pancreatic cancer Surgical History Hx of lumbosacral spine surgery Hx of bilateral cataract extraction (~03/2022) History of endoscopy History of left heart catheterization (09/25/20) History of loop recorder (06/2014) History of amputation of left great toe History of left knee surgery History of tonsillectomy and adenoidectomy History of back surgery History of cervical discectomy History of coronary artery stent placement (04/08/16) Social History household members: none Smoking Status: Current every day smoker tobacco type: cigarettes alcohol intake: never substance use type: does not use caffeine: Yes Type: coffee Number of servings: 1 what type of physical activity do you participate in: none and other details: Physical Therapy ROS ROS ED Constitutional Constitutional ED: Denies chills or fever(s) Cardiovascular Cardiovascular: Reports as per HPI and chest pain; Denies palpitations Respiratory/Chest Respiratory/Chest: Denies cough or dyspnea Gastrointestinal Gastrointestinal: Denies abdominal pain, nausea or vomiting Musculoskeletal Musculoskeletal: Reports back pain; Denies myalgias Neurologic Neurologic: Reports weakness; Denies paresthesias Hematologic/Lymphatic Hematologic/Lymphatic: Reports easy bleeding, easy bruising and other Details: On Eliquis EXAM Physical Exam Const Vital Signs: 06/25/24 15:27 06/25/24 15:27 06/25/24 15:51 Temperature 97.9 F Temperature Source Temporal Pulse Rate 64 Respiratory Rate 21 H Respiratory Effort Normal Non-Labored Blood Pressure 144/62 H Blood Pressure Mean 89 Pulse Ox 99 Oxygen Delivery Method Room Air Room Air 06/25/24 16:27 06/25/24 17:00 06/25/24 18:00 Temperature Temperature Source Pulse Rate 61 56 L 57 L Respiratory Rate 18 12 9 L Respiratory Effort Blood Pressure 129/66 H 147/64 H 151/55 H Blood Pressure Mean 87 91 87 Pulse Ox 96 97 95 Oxygen Delivery Method Room Air Room Air Positive well nourished and well developed General Appearance ED: well developed and NAD HEENT Reports dry mucous membranes Mouth ED: Yes dry mucous membranes Mouth: dry mucous membranes Eyes PERRL Neck supple and no JVD Chest Wall inspection of chest normal Resp normal respiratory effort and clear to auscultation bilaterally Cardio regular rate, regular rhythm and no murmurs Peripheral Pulses: pulses 2+ throughout GI normal to inspection, nondistended, normoactive bowel sounds, soft to palpation and non-tender Back/Spine no CVA tenderness Extremity normal to inspection General Extremety ED: Negative for edema General Extremity: Negative for edema Neuro oriented x3 Sensorium / Orientation: awake and alert Motor Exam: Negative for general weakness Psych mental status grossly normal Skin no rashes or lesions noted and no wounds Heart Score History: Slightly/Non-Suspicious ECG: Nonspecific Repolarization Age: >45 - <65 years Risk Factors: >/= 3 Risk Factors or History of CAD Troponin: </= Normal Limit Score: 4 MDM MDM MDM Narrative Medical decision making narrative: Patient is evaluated for chest pressure of the left side of her chest that rates down her left arm. She started this morning. Patient does have significant cardiac risk factors including prior coronary disease. Differential includes ACS, pleurisy, pleural effusion, pneumonia and chest wall pain. Suspicion for PE as patient is chronically anticoagulated on Eliquis. She states has been compliant with this. Cardiac workup including CBC, BMP, delta high-sensitivity troponin, proBNP and chest x-ray as well as EKG is obtained. Workup largely normal. Patient is given 1 dose of Percocet (she takes it at baseline at home) for pain in the emergency room. She is not given aspirin because she has reported intolerance to it. Urine culture from 06/21/2024 reviewed which showed presumptive E. coli 11-25,000 CFU's per mL with indeterminant sensitivity to Unasyn and resistance to ampicillin. Will switch the patient to Keflex. Given workup largely normal with heart score of 4 will be discharged home with outpatient follow-up. Patient given return precautions. Discharged home in stable condition. Lab Data Attestation: I reviewed the patient's lab results. Labs: Laboratory Results - last 24 hr 06/25/24 06/25/24 15:36 18:23 WBC 5.6 RBC 4.25 Hgb 12.4 Hct 38.4 MCV 90.4 MCH 29.2 MCHC 32.3 RDW Std Deviation 48.2 H RDW Coeff of Yeimi 14.6 Plt Count 303 MPV 10.1 Immature Gran % (Auto) 0.400 Neut % (Auto) 63.8 Lymph % (Auto) 21.4 [place] % (Auto) 9.5 Eos % (Auto) 3.8 Baso % (Auto) 1.1 H Absolute Neuts (auto) 3.5 Absolute Lymphs (auto) 1.19 Nucleated RBC % 0 Sodium 136 Potassium 4.0 Chloride Direct 101 Carbon Dioxide 24.4 Anion Gap 10 BUN 20 H Creatinine 0.63 L Estim Creat Clear Calc 60.98 Est GFR (MDRD) Non-Af 96 BUN/Creatinine Ratio 31.6 H Glucose 159 H Calcium 10.0 Troponin T High Sens 12 Troponin T Hi Sens 2 Hr 11 Troponin T Hi Sens 2Hr Delta 0 NT pro BNP II 347 Radiography Chest X-Ray - ED: 2 View, Read by ED Physician, Read by Radiologist and No Acute Disease Diagnostic Testing: Clinical Impression(s) from Imaging Studies Chest X-Ray 06/25/24 16:00 IMPRESSION: Mild pulmonary vascular congestion [facility] Rhythm Strip Rhythm Strip: Sinus Rhythm Rate: 62 Ectopy: None EKG Initial EKG: Attestation: I personally reviewed and interpreted this EKG as follows: Interpretation: Sinus Rhythm Comments: Normal sinus rhythm at a rate of 62 bpm Left axis deviation Low voltage QRS Nonspecific T wave changes with normal ST segments Prior EKG tracings: available for review Prior: Unchanged Discharge Plan Triage Chief Complaint: Chest Pain ED Provider: Gin Carballo Dx/Rx/DC Orders Clinical Impression: Chest pain Instructions: ED Chest Pain, Noncardiac Prescriptions: New cephalexin 500 mg capsule 500 mg PO Q12 Qty: 10 0RF No Action cholecalciferol (vitamin D3) 125 mcg (5,000 unit) capsule 125 mcg PO DAILY ferrous sulfate 325 mg (65 mg iron) tablet 325 mg PO DAILY aspirin [Adult Aspirin Regimen] 81 mg tablet,delayed release (DR/EC) 81 mg PO DAILY donepezil 10 mg tablet 20 mg PO .QLunch insulin lispro 100 unit/mL insulin pen 1 sliding scale dose subcut QA Patient Comments: Use with meals based on PRE meal blood sugar SLIDING SCALE as needed #1 (1 unit for every 50 over 150) Max 20 units daily. nitroglycerin 0.4 mg tablet, sublingual 0.4 mg sublingual Q5-15M Qty: 25 3RF albuterol sulfate 2.5 mg /3 mL (0.083 %) solution for nebulization 2.5 mg inhalation Q8H PRN (Reason: Dyspnea, wheezing) Qty: 180 0RF hydrocortisone 2.5 % cream 1 applic topical BID PRN (Reason: skin irritation) Qty: 454 1RF Gemtesa 75 mg tablet 75 mg PO DAILY Mounjaro 5 mg/0.5 mL pen injector 10 mg subcut Patient Comments: INJECT 5MG SUBCUTANEOUSLY EVERY WEEK oxycodone 5 mg capsule 5 mg PO DAILY PRN lidocaine [Lidoderm] 5 % adhesive patch,medicated 1 patch topical DAILY Rx Instructions: leave on most painful area for up to 12 hrs isosorbide mononitrate 30 mg tablet extended release 24 hr 30 mg PO BID Qty: 180 3RF ropinirole 1 mg tablet 1 mg PO QDAY duloxetine [Cymbalta] 30 mg capsule,delayed release(DR/EC) 30 mg PO BID Qty: 180 2RF quetiapine 100 mg tablet See Rx Instructions .ROUTE .COMPLEX Qty: 90 1RF Dose Instruction: TAKE 1 TABLET BY MOUTH EVERY NIGHT AT BEDTIME for mood Rx Instructions: TAKE 1 TABLET BY MOUTH EVERY NIGHT AT BEDTIME for mood quetiapine 25 mg tablet 25 mg PO QHS Qty: 90 0RF Rx Instructions: To be taken with 100 mg tablet at bedtime for nightly dose of 125 mg qHS ramelteon 8 mg tablet 8 mg PO QHS PRN (Reason: sleep) Qty: 90 1RF ropinirole 2 mg tablet 2 mg PO QHS Rx Instructions: 1mg at lunch and 2mg at HS sucralfate 1 gram tablet 1 g PO 4X/DAY modafinil 200 MG tablet 200 mg PO DAILY acetaminophen 500 MG tablet 1,000 mg PO TID PRN (Reason: pain 1-1010) Qty: 1 0RF Rx Instructions: alternate with ibuprofen atorvastatin 40 mg tablet 40 mg PO QHS ascorbic acid (vitamin C) 500 mg tablet,chewable 500 mg PO DAILY Prolia 60 mg/mL syringe 60 mg subcut [id number] Farxiga 10 mg tablet 10 mg PO QAM (DME) Accu-Chek Ada Plus test strp Strip See Rx Instructions .Route Qty: 100 6RF Rx Instructions: As directed ondansetron 4 mg tablet,disintegrating 4 mg PO Q8H PRN (Reason: nausea and vomiting) Qty: 30 1RF pantoprazole 40 mg tablet,delayed release (DR/EC) 40 mg PO DAILY Qty: 90 1RF albuterol sulfate 90 mcg/actuation HFA aerosol inhaler 2 puff inhalation Q6H PRN (Reason: shortness of breath or wheezing) Qty: 8.5 2RF pioglitazone 30 mg tablet 30 mg PO DAILY Qty: 30 0RF hydroxyzine HCl 50 mg tablet See Rx Instructions .ROUTE .COMPLEX Qty: 60 0RF Dose Instruction: TAKE 1 TABLET BY MOUTH TWICE DAILY NEEDED for itching Rx Instructions: TAKE 1 TABLET BY MOUTH TWICE DAILY NEEDED for itching Eliquis 5 mg tablet 5 mg PO BID Qty: 180 3RF carvedilol 12.5 mg tablet 12.5 mg PO BID Qty: 180 3RF Rx Instructions: must administer with a meal/food losartan 50 mg tablet 50 mg PO BID Qty: 180 3RF Primary Care Provider: Carlton Rocha Referrals: Carlton Rocha, [employer] [Primary Care Provider] - Activity Restrictions/Additional Instructions: Your cardiac workup was largely normal today. The exact cause of your chest pain is not clear at this time I think it safe for you to follow-up outpatient with your primary care doctor. I did review urine culture from 06/21 which showed indeterminant sensitivity to Cipro and Augmentin. We will switch her antibiotic to cephalexin today. He was given first dose in the emergency room. You can stop taking your current antibiotic and take the new 1 prescribed. Print Language: Turkmen Disposition Disposition: Home, Self Care
[2024-06-25] MEDS: oxyCODONE 5 MG Tablet PO (16:46)
[2024-06-25] MEDS: 0.9% Normal Saline (1000mL) 1,000 ML 999 ML IV (16:49)
[2024-06-25 17:00] VITALS: BP 147/64; PULSE 56; RESP 12; O2SAT 97
[2024-06-25 18:00] VITALS: BP 151/55; PULSE 57; RESP 9; O2SAT 95
[2024-06-25 18:55] LABS: TROPONIN VARIANCE 2 HR 0; Troponin T High Sens 2 HR 11 ng/L (<=14)
[2024-06-25 19:00] VITALS: BP 148/69; PULSE 66; RESP 17; O2SAT 97
[2024-06-25] MEDS: Cephalexin 250 MG Capsule 500 MG PO (19:18)
[2024-06-25 19:23] VITALS: BP 150/70; PULSE 66; RESP 18; TEMP 36.9; O2SAT 99
== END 2024-06-25 19:24 | disposition home or self-care (01) ==
PROVIDERS: Emergency Provider Emergency Medicine; PCP Nurse Practitioner Family; Visit Provider Emergency Medicine
DX: R07.89 Other chest pain (principal); G35 Multiple sclerosis; I13.0 Hypertensive heart and chronic kidney disease with heart failure and stage 1 through stage 4 chronic kidney disease, or unspecified chronic kidney disease; I50.22 Chronic systolic (congestive) heart failure; J44.9 Chronic obstructive pulmonary disease, unspecified; I48.0 Paroxysmal atrial fibrillation; E11.22 Type 2 diabetes mellitus with diabetic chronic kidney disease; Z79.4 Long term (current) use of insulin; N18.30 Chronic kidney disease, stage 3 unspecified; N39.0 Urinary tract infection, site not specified; B96.20 Unspecified Escherichia coli [E. coli] as the cause of diseases classified elsewhere; I25.10 Atherosclerotic heart disease of native coronary artery without angina pectoris; I25.2 Old myocardial infarction; F17.210 Nicotine dependence, cigarettes, uncomplicated; Z95.5 Presence of coronary angioplasty implant and graft; Z79.01 Long term (current) use of anticoagulants; Z79.82 Long term (current) use of aspirin; Z79.85 Long-term (current) use of injectable non-insulin antidiabetic drugs; Z79.899 Other long term (current) drug therapy
CPT/HCPCS: 71046; 80048; 83880; 84484; 85025; 93005; 96360; 96361; 99285; A4216

== ENCOUNTER 2024-07-10 13:38 | Emergency (ER) | payer MEDICARE, MEDICAID, SELFPAY ==
[2016-07-13 11:45] VITALS: BMI 31.4
[2024-07-10 13:41] VITALS: BP 132/60; PULSE 61; RESP 18; TEMP 36.6; O2SAT 97; BMI 29.7
--- NOTE | 2024-07-10 14:29 | CT_ITS ---
PROCEDURE: ABDOMEN/PELVIS W IV CONT ONLY REASON FOR EXAM: ABDOMINAL PAIN TECHNIQUE: CT imaging of the abdomen and pelvis with intravenous contrast with coronal and sagittal reformatted images IV CONTRAST: 99 cc [id number] COMPARISON: 12/25/2022 FINDINGS: Trace bilateral pleural fluid. Mild atelectasis left base. Coronary calcification noted. Symmetric nephrograms without hydronephrosis or perinephric stranding. The gallbladder, adrenal glands and spleen appear within limits. The pancreatic duct is dilated at 6 mm within the head and 6 mm at the proximal body for example coronal 56 and 47. There is also prominent appearance of the common bile duct at 7 mm with appearance of intrahepatic biliary ductal dilation. Concerning for obstructive process and is not appreciated on the previous limited noncontrast CT in 2022. An obvious pancreatic mass or calcified stone is not identified. Recommend correlation with LFTs and alkaline phosphatase, lipase and GI consult. The pancreas and liver otherwise appear within limits. Aortoiliac atherosclerotic calcification. No abdominal aortic aneurysm. No bowel dilation or free air. Normal caliber appendix without secondary signs. No free fluid. The bladder appears within limits. Thoracolumbar curvature with multilevel spondylosis/discogenic change, previous multilevel laminectomies, L4-[address]/Abdomen/Pelvis W IV Cont ONLY IMPRESSION: The pancreatic duct is dilated at 6 mm within the head and 6 mm at the proximal body for example coronal 56 and 47. There is also prominent appearance of the common bile duct at 7 mm with appearance of intrahe patic biliary ductal dilation. Concerning for obstructive process and is not appreciated on the previous limited noncontrast CT in 2022. An obvious pancreatic mass or calcified stone is not identified. Recommend correlation with LFTs and alkalin e phosphatase, lipase and GI consult. The pancreas and liver otherwise appear within limits. One or more dose reduction techniques were used (e.g., Automated exposure contr ol, adjustment of the mA and/or kV according to patient size, use of iterative reconstruction technique). Reading Location: [id number]
--- NOTE | 2024-07-10 14:31 | EDS_ITS ---
HPI <JAYRO Villa - Last Filed: 07/10/24 17:50> History of Present Illness Chief Complaint: Nausea/Vomiting/Diarrhea Narrative Narrative: Patient is a 68-year-old female with a long medical history of MS, chronic kidney disease, anxiety, depression, atrial fibrillation on Eliquis, diabetes, hypertension who presents to the emergency department for multiple complaints. Patient states that she was recently has been having difficulty getting rid of a UTI, patient has been on 3 separate antibiotics over the last several weeks. Patient did see her urologist a couple days ago, urine was taken and a culture was sent. Pay states he is now developed some diarrhea, she also has pain to her upper epigastric area and feels nauseous. Patient is concerned that she might have something wrong with her gallbladder, or that the antibiotics messed up her stomach. She is here for evaluation. [facility] <JAYRO Villa - Last Filed: 07/10/24 17:50> [facility] Medical History Dermatitis Vitamin deficiency Fatigue Headache Closed injury of head Insomnia CKD (chronic kidney disease) stage 3, GFR 30-59 ml/min Anxiety and depression Cataracts, both eyes Osteoporosis Type 2 diabetes mellitus Chronic neck pain with history of cervical spinal surgery Anemia Mural thrombus of heart Hiatal hernia History of peptic ulcer disease Essential (primary) hypertension History of ST elevation myocardial infarction (STEMI) BRYAN (obstructive sleep apnea) Multiple sclerosis Cervical spinal stenosis IBS (irritable bowel syndrome) RLS (restless legs syndrome) Takotsubo syndrome Atherosclerotic heart disease of [place] coronary artery without angina pectoris Paroxysmal atrial fibrillation Left ventricular hypertrophy Nicotine abuse Chronic systolic (congestive) heart failure Ischemic cardiomyopathy Diabetes mellitus type 2 in nonobese Apical mural thrombus with acute VA Vitamin B12 deficiency Irritable bowel syndrome with diarrhea COPD (chronic obstructive pulmonary disease) Home Medications ?Medication ?Instructions ?Recorded ?Last Taken ?Type modafinil 200 mg tablet 200 mg PO DAILY to stay awak e 12/12/19 06/06/22 History acetaminophen 500 mg tablet 1,000 mg (2 x 500 mg) PO T ID PRN 07/29/20 06/06/22 Rx pain -02/03 #1 TAB cholecalciferol (vitamin D3) 125 125 mcg PO DAILY supp lement 11/05/21 06/06/22 History mcg (5,000 unit) capsule ferrous sulfate 325 mg (65 mg 325 mg PO DAILY suppleme nt 11/05/21 06/05/22 History iron) tablet aspirin 81 mg tablet,delayed 81 mg PO DAILY heart heal th 04/01/22 06/06/22 History release (Adult Aspirin Regimen) ascorbic acid (vitamin C) 500 mg 500 mg PO DAILY suppl ement 06/06/22 06/06/22 History chewable tablet atorvastatin 40 mg tablet 40 mg PO QHS cholesterol 02/1606/05/22 History denosumab 60 mg/mL subcutaneous 60 mg subcut [id number] bone health 06/06/22 Unknown History syringe (Prolia) albuterol sulfate 2.5 mg/3 mL 2.5 mg (3 mL) inhalation Q8H PRN 07/21/22 Unknown Rx (0.083 %) solution for nebulization Dyspnea, wheezing #180 mL blood sugar diagnostic (Accu-Chek #100 ea 07/29/22 Unk nown Rx Ada Plus test strips) ondansetron 4 mg disintegrating 4 mg PO Q8H PRN nausea and 09/02/22 Unknown Rx tablet vomiting #30 tabs pantoprazole 40 mg tablet,delayed 40 mg PO DAILY gerd #90 tabs 09/04/22 Unknown Rx release donepezil 10 mg tablet 20 mg PO .QLunch 09/11/22 Un known History insulin lispro 100 unit/mL 1 sliding scale dose subcut QAC 09/11/22 Unknown History subcutaneous pen nitroglycerin 0.4 mg sublingual 0.4 mg sublingual Q5-1 5M #25 tabs 09/11/22 Unknown Rx tablet hydrocortisone 2.5 % topical cream 1 applic topical BI D PRN skin 09/12/22 Unknown Rx irritation #454 grams albuterol sulfate 90 mcg/actuation 2 puff inhalation Q 6H PRN 10/29/22 Unknown Rx aerosol inhaler shortness of breath or wheez ing #8.5 grams hydroxyzine HCl 50 mg tablet See Rx Instructions .Rout e 11/21/22 Unknown Rx .COMPLEX #60 tabs vibegron 75 mg tablet (Gemtesa) 75 mg PO DAILY 3 Unknown History isosorbide mononitrate 30 mg 30 mg PO BID heart #180 t abs 06/22/23 Unknown Rx tablet,extended release 24 hr lidocaine 5 % topical patch 1 patch topical DAILY 05/29 10/18 Unknown History (Lidoderm) oxycodone 5 mg capsule 5 mg PO DAILY PRN pain 06/22 Unknown History apixaban 5 mg tablet (Eliquis) 5 mg PO BID #180 tabs 0 10/02/23 Unknown Rx carvedilol 12.5 mg tablet 12.5 mg PO BID this is a dos e 11/23/23 Unknown Rx increase #180 tabs losartan 50 mg tablet 50 mg PO BID #180 tabs 12/13 Unknown Rx ropinirole 2 mg tablet 2 mg PO QHS restless leg 09/17 Unknown History sucralfate 1 gram tablet 1 g PO 4X/DAY reflux 4 Unknown History duloxetine 30 mg capsule,delayed 30 mg PO BID mental h ealth #180 05/03/24 Unknown Rx release (Cymbalta) caps quetiapine 100 mg tablet See Rx Instructions .Route 0 05/03/24 Unknown Rx .COMPLEX #90 tabs quetiapine 25 mg tablet 25 mg PO QHS #90 tabs Unknown Rx ramelteon 8 mg tablet 8 mg PO QHS PRN sleep #90 ta bs 05/03/24 Unknown Rx ropinirole 1 mg tablet 1 mg PO QDAY 05/03/24 Unknow n History tirzepatide 5 mg/0.5 mL 10 mg subcut .weekly 5 Unknown History subcutaneous pen injector (Mounjaro) dicyclomine 20 mg tablet 20 mg PO BID 07/10/24 Unknow n History fluorometholone 0.1 % eye 1 drp ophthalmic (eye) BID 0 07/10/24 Unknown History drops,suspension ondansetron HCl 4 mg tablet 4 mg PO Q8H PRN PRN nausea and 07/10/24 Unknown History vomiting Allergy/AdvReac Type Severity Reaction Status Date / Time vancomycin Allergy Severe Anaphylaxis Verified 07/10/24 13:40 indomethacin (From Indocin) Allergy Hives Verified 07/10/24 13:40 indomethacin sodium (From Allergy Hives Verified 07/10/24 13:40 Indocin) iodine Allergy Hives Verified 07/10/24 13:40 propoxyphene napsylate (From Allergy Out of Verified 07/10/24 13:40 Darvocet-N) control trazodone AdvReac Intermediate Other Verified 07/10/24 13:40 aripiprazole (From Abilify) AdvReac Other Verified 07/10/24 13:40 aspirin AdvReac Upset Verified 07/10/24 13:40 Stomach clindamycin AdvReac Nausea Verified 07/10/24 13:40 metformin AdvReac Other Verified 07/10/24 13:40 sumatriptan (From Imitrex) AdvReac Vomiting Verified 07/10/24 13:40 Family History Father Cancer Lung cancer Mother Cancer Pancreatic cancer Surgical History Hx of lumbosacral spine surgery Hx of bilateral cataract extraction (~03/2022) History of endoscopy History of left heart catheterization (09/25/20) History of loop recorder (06/2014) History of amputation of left great toe History of left knee surgery History of tonsillectomy and adenoidectomy History of back surgery History of cervical discectomy History of coronary artery stent placement (04/08/16) Social History household members: none Smoking Status: Current every day smoker tobacco type: cigarettes alcohol intake: never substance use type: does not use caffeine: Yes Type: coffee Number of servings: 1 what type of physical activity do you participate in: none and other details: Physical Therapy ROS <JAYRO Villa - Last Filed: 07/10/24 17:50> ROS ED ROS Narrative Constitutional: Negative for fever, chills, weight loss. positive for weakness Eyes: Negative for vision loss, vision change, double vision ENT: Negative for any sore throat, ear pain, congestion Cardiovascular: Negative for any chest pain, tightness, palpitations Respiratory: Negative for any cough, sputum production, hemoptysis, dyspnea, dyspnea on exertion, orthopnea Gastrointestinal: Negative for any constipation, blood in stool, blood in vomit. Positive for abdominal pain, nausea vomiting diarrhea : Negative for any urinary frequency, dysuria, retention, blood in urine Muscle skeletal: Negative for any neck pain, back pain Neurological: Negative for any headache, syncope, dizziness Skin: Negative for any rashes, itching, abrasions, lacerations Psychiatric: Negative for any depression, anxiety, stress, suicidal ideation, homicidal ideation Hematologic: Negative for any excessive bruising, easy bleeding EXAM <JAYRO Villa - Last Filed: 07/10/24 17:50> Physical Exam Narrative Exam Narrative: Vital signs reviewed. HEET: Head normocephalic atraumatic, TMs clear bilaterally. Posterior pharynx is clear, dry mucous membranes. Nares clear bilaterally. Neck: Supple with no lymphadenopathy or tenderness. No signs of meningismus. Cardiac: Regular rate and rhythm no murmurs gallops or rubs, equal peripheral pulses bilaterally. Respiratory: Lungs clear to auscultation bilaterally. No chest tenderness. Abdomen: Soft, tenderness to the epigastric, right upper abdomen, active bowel sounds in all quadrants. No abdominal bruit or pulsatile masses. No hepatosplenomegaly Extremities: No peripheral edema, no signs of gross trauma or deformity. Active full range of motion of all extremities. Neuro: Cranial nerves II through XII intact, no focal neurological deficits. Skin: Clean dry and intact with no rash, purpura, petechiae, vesicles or pustules. Backs/flank: No CVA tenderness, no midline spinal tenderness, no deformity. Psych: Normal mood and affect. No SI, HI or acute psychosis. Const Vital Signs: 07/10/24 13:41 07/10/24 15:00 07/10/24 17:00 Temperature 97.9 F Temperature Source Oral Pulse Rate 61 Respiratory Rate 18 Blood Pressure 132/60 H 124/55 H 129/57 H Blood Pressure Mean 84 75 77 Pulse Ox 97 96 95 Oxygen Delivery Method Room Air 07/10/24 17:30 Temperature Temperature Source Pulse Rate Respiratory Rate Blood Pressure 139/62 H Blood Pressure Mean 86 Pulse Ox 95 Oxygen Delivery Method <Dr. Jacinto Hendrickson DO - Last Filed: 07/10/24 21:58> Physical Exam Const Vital Signs: 07/10/24 13:41 07/10/24 15:00 07/10/24 17:00 Temperature 97.9 F Temperature Source Oral Pulse Rate 61 Respiratory Rate 18 Blood Pressure 132/60 H 124/55 H 129/57 H Blood Pressure Mean 84 75 77 Pulse Ox 97 96 95 Oxygen Delivery Method Room Air 07/10/24 17:30 Temperature Temperature Source Pulse Rate Respiratory Rate Blood Pressure 139/62 H Blood Pressure Mean 86 Pulse Ox 95 Oxygen Delivery Method MDM <JAYRO Villa - Last Filed: 07/10/24 17:50> [facility] Lab Data Labs: Laboratory Results - last 24 hr 07/10/24 07/10/24 14:34 14:55 WBC 6.4 RBC 3.93 L Hgb 11.5 L Hct 35.3 L MCV 89.8 MCH 29.3 MCHC 32.6 RDW Std Deviation 51.0 H RDW Coeff of [place] 15.5 H Plt Count 187 MPV 9.5
--- NOTE | 2024-07-10 14:31 | EX.ED.DYSGE1 ---
HPI <JAYRO Villa - Last Filed: 07/10/24 17:50> History of Present Illness Chief Complaint: Nausea/Vomiting/Diarrhea Narrative Narrative: Patient is a 68-year-old female with a long medical history of MS, chronic kidney disease, anxiety, depression, atrial fibrillation on Eliquis, diabetes, hypertension who presents to the emergency department for multiple complaints. Patient states that she was recently has been having difficulty getting rid of a UTI, patient has been on 3 separate antibiotics over the last several weeks. Patient did see her urologist a couple days ago, urine was taken and a culture was sent. Pay states he is now developed some diarrhea, she also has pain to her upper epigastric area and feels nauseous. Patient is concerned that she might have something wrong with her gallbladder, or that the antibiotics messed up her stomach. She is here for evaluation. PENDING SALE TO [facility] <JAYRO Villa - Last Filed: 07/10/24 17:50> PENDING SALE TO [facility] Medical History Dermatitis Vitamin deficiency Fatigue Headache Closed injury of head Insomnia CKD (chronic kidney disease) stage 3, GFR 30-59 ml/min Anxiety and depression Cataracts, both eyes Osteoporosis Type 2 diabetes mellitus Chronic neck pain with history of cervical spinal surgery Anemia Mural thrombus of heart Hiatal hernia History of peptic ulcer disease Essential (primary) hypertension History of ST elevation myocardial infarction (STEMI) BRYAN (obstructive sleep apnea) Multiple sclerosis Cervical spinal stenosis IBS (irritable bowel syndrome) RLS (restless legs syndrome) Takotsubo syndrome Atherosclerotic heart disease of [place] coronary artery without angina pectoris Paroxysmal atrial fibrillation Left ventricular hypertrophy Nicotine abuse Chronic systolic (congestive) heart failure Ischemic cardiomyopathy Diabetes mellitus type 2 in nonobese Apical mural thrombus with acute NV Vitamin B12 deficiency Irritable bowel syndrome with diarrhea COPD (chronic obstructive pulmonary disease) Home Medications ?Medication ?Instructions ?Recorded ?Last Taken ?Type modafinil 200 mg tablet 200 mg PO DAILY to stay awake 12/12/19 06/06/22 History acetaminophen 500 mg tablet 1,000 mg (2 x 500 mg) PO TID PRN 07/29/20 06/06/22 Rx pain -02/03 #1 TAB cholecalciferol (vitamin D3) 125 125 mcg PO DAILY supplement 11/05/21 06/06/22 History mcg (5,000 unit) capsule ferrous sulfate 325 mg (65 mg 325 mg PO DAILY supplement 11/05/21 06/05/22 History iron) tablet aspirin 81 mg tablet,delayed 81 mg PO DAILY heart health 04/01/22 06/06/22 History release (Adult Aspirin Regimen) ascorbic acid (vitamin C) 500 mg 500 mg PO DAILY supplement 06/06/22 06/06/22 History chewable tablet atorvastatin 40 mg tablet 40 mg PO QHS cholesterol 06/06/22 06/05/22 History denosumab 60 mg/mL subcutaneous 60 mg subcut [id number] bone health 06/06/22 Unknown History syringe (Prolia) albuterol sulfate 2.5 mg/3 mL 2.5 mg (3 mL) inhalation Q8H PRN 07/21/22 Unknown Rx (0.083 %) solution for nebulization Dyspnea, wheezing #180 mL blood sugar diagnostic (Accu-Chek #100 ea 07/29/22 Unknown Rx Ada Plus test strips) ondansetron 4 mg disintegrating 4 mg PO Q8H PRN nausea and 09/02/22 Unknown Rx tablet vomiting #30 tabs pantoprazole 40 mg tablet,delayed 40 mg PO DAILY gerd #90 tabs 09/04/22 Unknown Rx release donepezil 10 mg tablet 20 mg PO .QLunch 09/11/22 Unknown History insulin lispro 100 unit/mL 1 sliding scale dose subcut QAC 09/11/22 Unknown History subcutaneous pen nitroglycerin 0.4 mg sublingual 0.4 mg sublingual Q5-15M #25 tabs 09/11/22 Unknown Rx tablet hydrocortisone 2.5 % topical cream 1 applic topical BID PRN skin 09/12/22 Unknown Rx irritation #454 grams albuterol sulfate 90 mcg/actuation 2 puff inhalation Q6H PRN 10/29/22 Unknown Rx aerosol inhaler shortness of breath or wheezing #8.5 grams hydroxyzine HCl 50 mg tablet See Rx Instructions .Route 11/21/22 Unknown Rx .COMPLEX #60 tabs vibegron 75 mg tablet (Gemtesa) 75 mg PO DAILY 01/30/23 Unknown History isosorbide mononitrate 30 mg 30 mg PO BID heart #180 tabs 06/22/23 Unknown Rx tablet,extended release 24 hr lidocaine 5 % topical patch 1 patch topical DAILY 06/22/23 Unknown History (Lidoderm) oxycodone 5 mg capsule 5 mg PO DAILY PRN pain 06/22/23 Unknown History apixaban 5 mg tablet (Eliquis) 5 mg PO BID #180 tabs 10/02/23 Unknown Rx carvedilol 12.5 mg tablet 12.5 mg PO BID this is a dose 11/23/23 Unknown Rx increase #180 tabs losartan 50 mg tablet 50 mg PO BID #180 tabs 12/14/23 Unknown Rx ropinirole 2 mg tablet 2 mg PO QHS restless leg 03/01/24 Unknown History sucralfate 1 gram tablet 1 g PO 4X/DAY reflux 03/01/24 Unknown History duloxetine 30 mg capsule,delayed 30 mg PO BID mental health #180 05/03/24 Unknown Rx release (Cymbalta) caps quetiapine 100 mg tablet See Rx Instructions .Route 05/03/24 Unknown Rx .COMPLEX #90 tabs quetiapine 25 mg tablet 25 mg PO QHS #90 tabs 05/03/24 Unknown Rx ramelteon 8 mg tablet 8 mg PO QHS PRN sleep #90 tabs 05/03/24 Unknown Rx ropinirole 1 mg tablet 1 mg PO QDAY 05/03/24 Unknown History tirzepatide 5 mg/0.5 mL 10 mg subcut .weekly 05/03/24 Unknown History subcutaneous pen injector (Mounjaro) dicyclomine 20 mg tablet 20 mg PO BID 07/10/24 Unknown History fluorometholone 0.1 % eye 1 drp ophthalmic (eye) BID 07/10/24 Unknown History drops,suspension ondansetron HCl 4 mg tablet 4 mg PO Q8H PRN PRN nausea and 07/10/24 Unknown History vomiting Allergy/AdvReac Type Severity Reaction Status Date / Time vancomycin Allergy Severe Anaphylaxis Verified 07/10/24 13:40 indomethacin (From Indocin) Allergy Hives Verified 07/10/24 13:40 indomethacin sodium (From Allergy Hives Verified 07/10/24 13:40 Indocin) iodine Allergy Hives Verified 07/10/24 13:40 propoxyphene napsylate (From Allergy Out of Verified 07/10/24 13:40 Darvocet-N) control trazodone AdvReac Intermediate Other Verified 07/10/24 13:40 aripiprazole (From Abilify) AdvReac Other Verified 07/10/24 13:40 aspirin AdvReac Upset Verified 07/10/24 13:40 Stomach clindamycin AdvReac Nausea Verified 07/10/24 13:40 metformin AdvReac Other Verified 07/10/24 13:40 sumatriptan (From Imitrex) AdvReac Vomiting Verified 07/10/24 13:40 Family History Father Cancer Lung cancer Mother Cancer Pancreatic cancer Surgical History Hx of lumbosacral spine surgery Hx of bilateral cataract extraction (~03/2022) History of endoscopy History of left heart catheterization (09/25/20) History of loop recorder (06/2014) History of amputation of left great toe History of left knee surgery History of tonsillectomy and adenoidectomy History of back surgery History of cervical discectomy History of coronary artery stent placement (04/08/16) Social History household members: none Smoking Status: Current every day smoker tobacco type: cigarettes alcohol intake: never substance use type: does not use caffeine: Yes Type: coffee Number of servings: 1 what type of physical activity do you participate in: none and other details: Physical Therapy ROS <JAYRO Vilal - Last Filed: 07/10/24 17:50> ROS ED ROS Narrative Constitutional: Negative for fever, chills, weight loss. positive for weakness Eyes: Negative for vision loss, vision change, double vision ENT: Negative for any sore throat, ear pain, congestion Cardiovascular: Negative for any chest pain, tightness, palpitations Respiratory: Negative for any cough, sputum production, hemoptysis, dyspnea, dyspnea on exertion, orthopnea Gastrointestinal: Negative for any constipation, blood in stool, blood in vomit. Positive for abdominal pain, nausea vomiting diarrhea : Negative for any urinary frequency, dysuria, retention, blood in urine Muscle skeletal: Negative for any neck pain, back pain Neurological: Negative for any headache, syncope, dizziness Skin: Negative for any rashes, itching, abrasions, lacerations Psychiatric: Negative for any depression, anxiety, stress, suicidal ideation, homicidal ideation Hematologic: Negative for any excessive bruising, easy bleeding EXAM <JAYRO Villa - Last Filed: 07/10/24 17:50> Physical Exam Narrative Exam Narrative: Vital signs reviewed. HEET: Head normocephalic atraumatic, TMs clear bilaterally. Posterior pharynx is clear, dry mucous membranes. Nares clear bilaterally. Neck: Supple with no lymphadenopathy or tenderness. No signs of meningismus. Cardiac: Regular rate and rhythm no murmurs gallops or rubs, equal peripheral pulses bilaterally. Respiratory: Lungs clear to auscultation bilaterally. No chest tenderness. Abdomen: Soft, tenderness to the epigastric, right upper abdomen, active bowel sounds in all quadrants. No abdominal bruit or pulsatile masses. No hepatosplenomegaly Extremities: No peripheral edema, no signs of gross trauma or deformity. Active full range of motion of all extremities. Neuro: Cranial nerves II through XII intact, no focal neurological deficits. Skin: Clean dry and intact with no rash, purpura, petechiae, vesicles or pustules. Backs/flank: No CVA tenderness, no midline spinal tenderness, no deformity. Psych: Normal mood and affect. No SI, HI or acute psychosis. Const Vital Signs: 07/10/24 13:41 07/10/24 15:00 07/10/24 17:00 Temperature 97.9 F Temperature Source Oral Pulse Rate 61 Respiratory Rate 18 Blood Pressure 132/60 H 124/55 H 129/57 H Blood Pressure Mean 84 75 77 Pulse Ox 97 96 95 Oxygen Delivery Method Room Air 07/10/24 17:30 Temperature Temperature Source Pulse Rate Respiratory Rate Blood Pressure 139/62 H Blood Pressure Mean 86 Pulse Ox 95 Oxygen Delivery Method <Dr. Jacinto Hendrickson DO - Last Filed: 07/10/24 21:58> Physical Exam Const Vital Signs: 07/10/24 13:41 07/10/24 15:00 07/10/24 17:00 Temperature 97.9 F Temperature Source Oral Pulse Rate 61 Respiratory Rate 18 Blood Pressure 132/60 H 124/55 H 129/57 H Blood Pressure Mean 84 75 77 Pulse Ox 97 96 95 Oxygen Delivery Method Room Air 07/10/24 17:30 Temperature Temperature Source Pulse Rate Respiratory Rate Blood Pressure 139/62 H Blood Pressure Mean 86 Pulse Ox 95 Oxygen Delivery Method [facility] <Nikita Grier NPEmi - Last Filed: 07/10/24 17:50> [facility] Lab Data Labs: Laboratory Results - last 24 hr 07/10/24 07/10/24 14:34 14:55 WBC 6.4 RBC 3.93 L Hgb 11.5 L Hct 35.3 L MCV 89.8 MCH 29.3 MCHC 32.6 RDW Std Deviation 51.0 H RDW Coeff of Yeimi 15.5 H Plt Count 187 MPV 9.5 Immature Gran % (Auto) 0.300 Neut % (Auto) 60.6 Lymph % (Auto) 26.1 [place] % (Auto) 9.7 Eos % (Auto) 2.4 Baso % (Auto) 0.9 Absolute Neuts (auto) 3.9 Absolute Lymphs (auto) 1.66 Nucleated RBC % 0 Sodium 137 Potassium 3.1 L Chloride 102 Carbon Dioxide 24.6 Anion Gap 11 BUN 10 Creatinine 0.85 Estim Creat Clear Calc 58.75 Est GFR (MDRD) Non-Af 74 BUN/Creatinine Ratio 12.2 Glucose 134 H Lactic Acid < 1.0 Calcium 10.2 Total Bilirubin 0.35 AST 14 ALT 8 Alkaline Phosphatase 90 Total Protein 5.7 L Albumin 3.4 Globulin 2.3 Albumin/Globulin Ratio 1.5 Lipase 34 Urine Color Yellow Urine Clarity Clear Urine pH 6.0 Ur Specific [place] 1.020 Urine Protein 15 H Urine Glucose (UA) Normal Urine Ketones Negative Urine Occult Blood 10 H Urine Nitrite Negative Urine Bilirubin Negative Urine Urobilinogen Normal Ur Leukocyte Esterase 25 H Urine RBC 0-5 SEEN Urine WBC 0-5 SEEN Ur Squamous Epith Cells 0-5 SEEN Urine Bacteria 0 SEEN Urine Mucus 0 SEEN Radiography Diagnostic Testing: Clinical Impression(s) from Imaging Studies Abdomen/Pelvis CT 07/10/24 14:29 IMPRESSION: The pancreatic duct is dilated at 6 mm within the head and 6 mm at the proximal body for example coronal 56 and 47. There is also prominent appearance of the common bile duct at 7 mm with appearance of intrahepatic biliary ductal dilation. Concerning for obstructive process and is not appreciated on the previous limited noncontrast CT in 2022. An obvious pancreatic mass or calcified stone is not identified. Recommend correlation with LFTs and alkaline phosphatase, lipase and GI consult. The pancreas and liver otherwise appear within limits. One or more dose reduction techniques were used (e.g., Automated exposure control, adjustment of the mA and/or kV according to patient size, use of iterative reconstruction technique). Reading Location: [facility] Treatment and Re-Evaluation :: Differential diagnosis includes however is not limited to: C. difficile, acute cholecystitis, bowel obstruction, reticulitis, obstructing uropathy, ongoing UTI, electrolyte abnormality MDM presenting to the emergency department for multiple complaints. Patient will receive basic laboratory values, CT scan of the abdomen pelvis IV contrast. Patient will be premedicated. IV fluids, Zofran and morphine. All radiologic examinations were read, reviewed by the emergency department attending. From these reads, a plan of care will be put in place. Patient's laboratory values showed no leukocytosis, stable anemia, patient's chemistry showed potassium 3.1 this was replaced orally. Remainder of the vital signs are stable, no transaminitis. No lactic acidosis. Urinalysis negative for any infection. Patient was able to provide a stool sample here. Patient's abdominal CT showed pancreatic duct that is dilated 6 mm within the head and 6 mm of the proximal body. There is also prominent appearance of the common bile duct at 7 mm with appearance of intrahepatic biliary ductal dilatation. Concerning for obstructive process and is not appreciated on the previous limited noncontrast CT in 2022. No obvious pancreatic mass or stone. Correlate with LFTs. On reevaluation, the patient was feeling much better. Patient is able to pass a p.o. challenge. Patient is laboratory values will well-appearing. At this time, patient be discharged home. She is instructed to follow-up outpatient. She will follow-up closely with her PCP regarding her CT results. All questions answered, patient stable for discharge. <Dr. Jacinto Hendrickson, DO - Last Filed: 07/10/24 21:58> [facility] Narrative Medical decision making narrative: Supervisory Physician Note Patient was seen and examined with the Advanced Practice Provider. Nursing notes and vital signs have been reviewed. Pertinent old records have been reviewed. I agree with the essential elements of the DAJUNA's history, physical exam, assessment, and plan. The differential diagnosis and management options were discussed with the DAJUAN. I participated in determining and agree with the management, procedures, final impression and disposition as documented. See changes noted by me. Please see addendum or separate note for any additional details. 68-year-old female atrial fibrillation on Eliquis, DM, HTN, CKD presents for evaluation of of nausea, vomiting, diarrhea. Patient recently diagnosed with recurrent UTIs on multiple antibiotics. On Thursday, developed nausea, vomiting, diarrhea. Emesis and diarrhea nonbloody. She endorses some epigastric discomfort. Denies any fever, chills, shortness of breath, chest pain. Gen: A&O x3, NAD Head: Normocephalic, atraumatic Eyes: No sclera icterus, conjunctiva clear ENT: Mildly dry mucous membranes Neck: Trachea midline, No JVD CV: RRR, no murmurs, no peripheral edema Resp: Lungs CTA BL, no w/r/c GI: Abd soft, non-distended, mild tenderness to palpation in the epigastrium, no r/r/g : No CVA tenderness Musc: Full ROM, no deformity Skin: Warm, dry Neuro: Alert, oriented, grossly intact, sensation intact Psych: Cooperative, appropriate mood and affect Patient's symptoms treated. CBC without leukocytosis. Patient has anemia of 11.5. Previous hemoglobin earlier this month was 12.4. Patient states her diarrhea is nonbloody. No dark stools. On chart review, she has had anemia in the past. CMP unremarkable except for mild hypokalemia. P.o. potassium ordered. No ELBA. No transaminitis or hyperbilirubinemia. Lactic acid unremarkable. Lipase unremarkable. UA negative for UTI. CT abdomen pelvis and C. difficile was pending and patient was signed out to oncoming physician Dr. Blackburn with final disposition pending results. Lab Data Labs: Laboratory Results - last 24 hr 07/10/24 07/10/24 14:34 14:55 WBC 6.4 RBC 3.93 L Hgb 11.5 L Hct 35.3 L MCV 89.8 MCH 29.3 MCHC 32.6 RDW Std Deviation 51.0 H RDW Coeff of [place]imi 15.5 H Plt Count 187 MPV 9.5 Immature Gran % (Auto) 0.300 Neut % (Auto) 60.6 Lymph % (Auto) 26.1 [place] % (Auto) 9.7 Eos % (Auto) 2.4 Baso % (Auto) 0.9 Absolute Neuts (auto) 3.9 Absolute Lymphs (auto) 1.66 Nucleated RBC % 0 Sodium 137 Potassium 3.1 L Chloride 102 Carbon Dioxide 24.6 Anion Gap 11 BUN 10 Creatinine 0.85 Estim Creat Clear Calc 58.75 Est GFR (MDRD) Non-Af 74 BUN/Creatinine Ratio 12.2 Glucose 134 H Lactic Acid < 1.0 Calcium 10.2 Total Bilirubin 0.35 AST 14 ALT 8 Alkaline Phosphatase 90 Total Protein 5.7 L Albumin 3.4 Globulin 2.3 Albumin/Globulin Ratio 1.5 Lipase 34 Urine Color Yellow Urine Clarity Clear Urine pH 6.0 Ur Specific [place] 1.020 Urine Protein 15 H Urine Glucose (UA) Normal Urine Ketones Negative Urine Occult Blood 10 H Urine Nitrite Negative Urine Bilirubin Negative Urine Urobilinogen Normal Ur Leukocyte Esterase 25 H Urine RBC 0-5 SEEN Urine WBC 0-5 SEEN Ur Squamous Epith Cells 0-5 SEEN Urine Bacteria 0 SEEN Urine Mucus 0 SEEN Radiography Diagnostic Testing: Clinical Impression(s) from Imaging Studies Abdomen/Pelvis CT 07/10/24 14:29 IMPRESSION: The pancreatic duct is dilated at 6 mm within the head and 6 mm at the proximal body for example coronal 56 and 47. There is also prominent appearance of the common bile duct at 7 mm with appearance of intrahepatic biliary ductal dilation. Concerning for obstructive process and is not appreciated on the previous limited noncontrast CT in 2022. An obvious pancreatic mass or calcified stone is not identified. Recommend correlation with LFTs and alkaline phosphatase, lipase and GI consult. The pancreas and liver otherwise appear within limits. One or more dose reduction techniques were used (e.g., Automated exposure control, adjustment of the mA and/or kV according to patient size, use of iterative reconstruction technique). Reading Location: [facility] Discharge Plan Triage Chief Complaint: Nausea/Vomiting/Diarrhea ED Midlevel Provider: Nikita Grier ED Provider: Jacinto Hendrickson Dx/Rx/DC Orders Clinical Impression: Abdominal pain, Gastroenteritis Instructions: Abdominal Pain, ED Gastritis (Adult) Prescriptions: No Action cholecalciferol (vitamin D3) 125 mcg (5,000 unit) capsule 125 mcg PO DAILY ferrous sulfate 325 mg (65 mg iron) tablet 325 mg PO DAILY aspirin [Adult Aspirin Regimen] 81 mg tablet,delayed release (DR/EC) 81 mg PO DAILY donepezil 10 mg tablet 20 mg PO .QLunch insulin lispro 100 unit/mL insulin pen 1 sliding scale dose subcut QA Patient Comments: Use with meals based on PRE meal blood sugar SLIDING SCALE as needed #1 (1 unit for every 50 over 150) Max 20 units daily. nitroglycerin 0.4 mg tablet, sublingual 0.4 mg sublingual Q5-15M Qty: 25 3RF albuterol sulfate 2.5 mg /3 mL (0.083 %) solution for nebulization 2.5 mg inhalation Q8H PRN (Reason: Dyspnea, wheezing) Qty: 180 0RF hydrocortisone 2.5 % cream 1 applic topical BID PRN (Reason: skin irritation) Qty: 454 1RF Gemtesa 75 mg tablet 75 mg PO DAILY Mounjaro 5 mg/0.5 mL pen injector 10 mg subcut .weekly Patient Comments: INJECT 5MG SUBCUTANEOUSLY EVERY WEEK oxycodone 5 mg capsule 5 mg PO DAILY PRN (Reason: pain) lidocaine [Lidoderm] 5 % adhesive patch,medicated 1 patch topical DAILY Rx Instructions: leave on most painful area for up to 12 hrs isosorbide mononitrate 30 mg tablet extended release 24 hr 30 mg PO BID Qty: 180 3RF ropinirole 1 mg tablet 1 mg PO QDAY duloxetine [Cymbalta] 30 mg capsule,delayed release(DR/EC) 30 mg PO BID Qty: 180 2RF quetiapine 100 mg tablet See Rx Instructions .ROUTE .COMPLEX Qty: 90 1RF Dose Instruction: TAKE 1 TABLET BY MOUTH EVERY NIGHT AT BEDTIME for mood Rx Instructions: TAKE 1 TABLET BY MOUTH EVERY NIGHT AT BEDTIME for mood quetiapine 25 mg tablet 25 mg PO QHS Qty: 90 0RF Rx Instructions: To be taken with 100 mg tablet at bedtime for nightly dose of 125 mg qHS ramelteon 8 mg tablet 8 mg PO QHS PRN (Reason: sleep) Qty: 90 1RF ropinirole 2 mg tablet 2 mg PO QHS Rx Instructions: 1mg at lunch and 2mg at HS sucralfate 1 gram tablet 1 g PO 4X/DAY modafinil 200 MG tablet 200 mg PO DAILY acetaminophen 500 MG tablet 1,000 mg PO TID PRN (Reason: pain 1-10/10) Qty: 1 0RF Rx Instructions: alternate with ibuprofen atorvastatin 40 mg tablet 40 mg PO QHS ascorbic acid (vitamin C) 500 mg tablet,chewable 500 mg PO DAILY Prolia 60 mg/mL syringe 60 mg subcut [id number] ondansetron HCl 4 mg tablet 4 mg PO Q8H PRN PRN (Reason: nausea and vomiting) dicyclomine 20 mg tablet 20 mg PO BID fluorometholone 0.1 % drops,suspension 1 drp ophthalmic (eye) BID (DME) Accu-Chek Ada Plus test strp Strip See Rx Instructions .Route Qty: 100 6RF Rx Instructions: As directed ondansetron 4 mg tablet,disintegrating 4 mg PO Q8H PRN (Reason: nausea and vomiting) Qty: 30 1RF pantoprazole 40 mg tablet,delayed release (DR/EC) 40 mg PO DAILY Qty: 90 1RF albuterol sulfate 90 mcg/actuation HFA aerosol inhaler 2 puff inhalation Q6H PRN (Reason: shortness of breath or wheezing) Qty: 8.5 2RF hydroxyzine HCl 50 mg tablet See Rx Instructions .ROUTE .COMPLEX Qty: 60 0RF Dose Instruction: TAKE 1 TABLET BY MOUTH TWICE DAILY NEEDED for itching Rx Instructions: TAKE 1 TABLET BY MOUTH TWICE DAILY NEEDED for itching Eliquis 5 mg tablet 5 mg PO BID Qty: 180 3RF carvedilol 12.5 mg tablet 12.5 mg PO BID Qty: 180 3RF Rx Instructions: must administer with a meal/food losartan 50 mg tablet 50 mg PO BID Qty: 180 3RF Primary Care Provider: Carlton Rocha Referrals: Carlton Rocha, [employer] [Primary Care Provider] - Activity Restrictions/Additional Instructions: Please follow-up outpatient. Print Language: Thai Disposition Disposition: Home, Self Care Discharge Date/Time: 07/10/24 18:05
[2024-07-10 14:44] LABS: Absolute Lymphocyte Count 1.66 X10^3/uL (0.83-4.51); Absolute Neutrophil Count 3.9 X10^3/uL (2.0-7.7); Basophil# 0.06 X10^3/uL; Basophil% 0.9 % (0-1); Eosinophil# 0.15 X10^3/uL; Eosinophils% 2.4 % (0-5); Hematocrit 35.3 % (37-47); Hemoglobin 11.5 g/dL (12.0-15.0); Lymphocyte # 1.66 X10^3/ul (0.83-4.51); Lymphocyte % 26.1 % (19-41); Mean Corp Hgb Conc 32.6 g/dL (32-36); Mean Corpuscular Hgb 29.3 pg (27.0-32.0); Mean Corpuscular Volume 89.8 fL (81-99); Mean Platelet Vol. 9.5 fl (6.2-12.0); Monocyte# 0.62 X10^3/uL; Monocyte% 9.7 % (0-10); NRBC Flagged by Analyzer 0 % (0-5); Neutrophil # 3.85 X10^3/uL (2.7-7.7); Neutrophil % 60.6 % (47-70); Platelet Count 187 K/mm3 (150-450); RBC Distribution Width CV 15.5 % (11.6-14.6); Red Blood Count 3.93 M/mm3 (4.2-5.4); White Blood Count 6.4 K/mm3 (4.4-11.0)
[2024-07-10 14:58] LABS: Bacteria 0 SEEN /hpf (None Seen); Mucous, Urine 0 SEEN /hpf (<or=2+)
[2024-07-10 15:00] VITALS: BP 124/55; O2SAT 96
[2024-07-10] MEDS: 0.9% Normal Saline (1000mL) 1,000 ML 999 ML IV (15:01)
[2024-07-10] MEDS: Morphine 4 MG/ML Syringe IV (15:01)
[2024-07-10] MEDS: DiphenhydrAMINE 50 MG/ML Syringe IV (15:01)
[2024-07-10] MEDS: Ondansetron 4 MG/2 ML Vial IV (15:01)
[2024-07-10] MEDS: MethylPREDNISolone 125 MG/2 ML Vial IV (15:01)
[2024-07-10 15:04] LABS: Color, Urine Yellow (Yellow); Glucose, Dipstick Normal (Normal); Ketone-Dipstick Negative (Negative); Leukocyte Esterase-Dipstick 25 /ul (Negative); Nitrite-Dipstick Negative (Negative); Occult Blood-Urine 10 /ul (Negative); Protein-Dipstick 15 mg/dl (Negative); Urine Bilirubin Dipstick Negative (Negative); Urine Clarity Clear (Clear); Urine Urobilinogen Normal (Normal)
[2024-07-10 15:17] LABS: Red Blood Cells-Urine 0-5 SEEN /hpf (0-5); Squamous Epithelial Cells - UA 0-5 SEEN /hpf (5-10); White Blood Cells 0-5 SEEN /hpf (0-5)
[2024-07-10 15:17] LABS: ALB/GLOB Ratio 1.5 RATIO (0.9-2.4); AST(SGOT) 14 U/L (<=31); Alanine Aminotransfer ALT/SGPT 8 U/L (<=34); Albumin, Serum 3.4 g/dL (3.4-4.8); Alkaline Phosphatase 90 U/L (35-104); Anion Gap 11 (5-15); BUN 10 mg/dL (4-19); BUN/Creat Ratio 12.2 RATIO (10-20); Calcium,Total 10.2 mg/dL (7.6-11.0); Carbon Dioxide 24.6 mmol/L (21.0-32.0); Chloride 102 mmol/L (98-108); Creatinine, Serum 0.85 mg/dL (0.70-1.20); EST Glomerular Filtration Rate 74 (>60); Estimated Creatinine Clearance 58.75 ml/min (50-250); Globulin 2.3 g/dL (2.2-4.2); Glucose 134 mg/dL (70-99); Lipase 34 U/L (13-75); Potassium 3.1 mmol/L (3.3-5.1); Protein, Total 5.7 g/dL (5.9-8.4); Sodium Level 137 mmol/L (133-145); Total Bilirubin 0.35 mg/dL (0.00-1.30)
[2024-07-10 15:30] LABS: Lactic Acid < 1.0 mmol/L (0.0-2.0)
[2024-07-10] MEDS: Potassium Chloride Oral Tablet 20 MEQ 40 MEQ PO (15:47)
[2024-07-10 17:00] VITALS: BP 129/57; O2SAT 95
[2024-07-10 17:30] VITALS: BP 139/62; O2SAT 95
== END 2024-07-10 18:05 | disposition home or self-care (01) ==
PROVIDERS: Nurse Practitioner; Emergency Provider Surgery; PCP Nurse Practitioner Family; Visit Provider Surgery
DX: R11.2 Nausea with vomiting, unspecified (principal); I13.0 Hypertensive heart and chronic kidney disease with heart failure and stage 1 through stage 4 chronic kidney disease, or unspecified chronic kidney disease; I50.22 Chronic systolic (congestive) heart failure; J44.9 Chronic obstructive pulmonary disease, unspecified; I48.0 Paroxysmal atrial fibrillation; E11.22 Type 2 diabetes mellitus with diabetic chronic kidney disease; Z79.4 Long term (current) use of insulin; N18.30 Chronic kidney disease, stage 3 unspecified; F17.210 Nicotine dependence, cigarettes, uncomplicated; I25.10 Atherosclerotic heart disease of native coronary artery without angina pectoris; K52.9 Noninfective gastroenteritis and colitis, unspecified; Z79.01 Long term (current) use of anticoagulants; Z79.899 Other long term (current) drug therapy; Z79.82 Long term (current) use of aspirin; G25.81 Restless legs syndrome; F41.8 Other specified anxiety disorders; Z98.41 Cataract extraction status, right eye; Z98.42 Cataract extraction status, left eye; Z95.5 Presence of coronary angioplasty implant and graft; R10.13 Epigastric pain
CPT/HCPCS: 74177; 80053; 81001; 83605; 83690; 85025; 96361; 96374; 96375; 99285; P9612; Q9967; J2405

== ENCOUNTER → 2024-07-13 | Outpatient (CLI) | payer MEDICARE, MEDICAID, SELFPAY ==
[2016-07-13 11:45] VITALS: BMI 31.4
[2024-07-13 18:06] LABS: Anion Gap 12 (5-15); BUN 16 mg/dL (4-19); BUN/Creat Ratio 20.9 RATIO (10-20); Calcium,Total 9.8 mg/dL (7.6-11.0); Carbon Dioxide 20.7 mmol/L (21.0-32.0); Chloride 102 mmol/L (98-108); Creatinine, Serum 0.77 mg/dL (0.70-1.20); EST Glomerular Filtration Rate 83 (>60); Glucose 168 mg/dL (70-99); Potassium 3.5 mmol/L (3.3-5.1); Sodium Level 135 mmol/L (133-145)
== END | disposition home or self-care (01) ==
LOC: VSLAB 14:19
PROVIDERS: PCP Nurse Practitioner Family
DX: E87.6 Hypokalemia (principal)
CPT/HCPCS: 36415; 80048

== ENCOUNTER 2024-07-18 13:06 | Inpatient (IN) | payer MEDICARE, MEDICAID, SELFPAY ==
[2016-07-13 11:45] VITALS: BMI 31.4
[2024-07-18] VITALS (8 sets, daily range): BP systolic 124–162; BP diastolic 62–78; PULSE 57–80; RESP 16–19; TEMP 36.6–37.2; O2SAT 92–100; BMI 30.2
[2024-07-18 13:51] LABS: Absolute Lymphocyte Count 1.72 X10^3/uL (0.83-4.51); Absolute Neutrophil Count 4.9 X10^3/uL (2.0-7.7); Basophil# 0.07 X10^3/uL; Basophil% 0.9 % (0-1); Eosinophil# 0.33 X10^3/uL; Eosinophils% 4.3 % (0-5); Hematocrit 35.7 % (37-47); Hemoglobin 11.6 g/dL (12.0-15.0); Lymphocyte # 1.72 X10^3/ul (0.83-4.51); Lymphocyte % 22.2 % (19-41); Mean Corp Hgb Conc 32.5 g/dL (32-36); Mean Corpuscular Hgb 29.8 pg (27.0-32.0); Mean Corpuscular Volume 91.8 fL (81-99); Mean Platelet Vol. 10.1 fl (6.2-12.0); Monocyte# 0.73 X10^3/uL; Monocyte% 9.4 % (0-10); NRBC Flagged by Analyzer 0 % (0-5); Neutrophil # 4.85 X10^3/uL (2.7-7.7); Neutrophil % 62.7 % (47-70); Platelet Count 236 K/mm3 (150-450); RBC Distribution Width CV 15.8 % (11.6-14.6); RBC Distribution Width SD 53.1 fl (35.1-43.9); Red Blood Count 3.89 M/mm3 (4.2-5.4); White Blood Count 7.7 K/mm3 (4.4-11.0)
[2024-07-18 14:48] LABS: Lipase 31 U/L (13-75)
[2024-07-18 14:54] LABS: ALB/GLOB Ratio 1.5 RATIO (0.9-2.4); AST(SGOT) 16 U/L (<=31); Alanine Aminotransfer ALT/SGPT 11 U/L (<=34); Albumin, Serum 3.7 g/dL (3.4-4.8); Alkaline Phosphatase 137 U/L (35-104); Anion Gap 8 (5-15); BUN 18 mg/dL (4-19); BUN/Creat Ratio 23.1 RATIO (10-20); Calcium,Total 10.2 mg/dL (7.6-11.0); Carbon Dioxide 25.3 mmol/L (21.0-32.0); Chloride 100 mmol/L (98-108); Creatinine, Serum 0.77 mg/dL (0.70-1.20); EST Glomerular Filtration Rate 84 (>60); Globulin 2.5 g/dL (2.2-4.2); Glucose 149 mg/dL (70-99); Potassium 4.2 mmol/L (3.3-5.1); Protein, Total 6.2 g/dL (5.9-8.4); Sodium Level 134 mmol/L (133-145); Total Bilirubin 0.29 mg/dL (0.00-1.30)
--- NOTE | 2024-07-18 15:10 | US_ITS ---
EXAM: US Abdomen Limited, Right Upper Quadrant CLINICAL INDICATION: RIGHT UPPER QUADRANT PAIN TECHNIQUE: Real-time ultrasound of the right upper quadrant with image documentation. COMPARISON: No relevant prior studies available. FINDINGS: LIVER: Liver measures 15.5 cm. Sided coarsened echotexture, concerning for cirrhosis. Clinical correlation is recommended. No intrahepatic bile duct dilation. GALLBLADDER: Negative Pool's sign was reported by the manager music. No gallstones. COMMON BILE DUCT: Common bile duct is prominent measuring 0.9 cm in diameter. No common bile duct stone is seen. PANCREAS: Unremarkable as visualized. RIGHT KIDNEY: Unremarkable. No stones. No hydronephrosis. The right kidney measures 11.4 x 5.3 x 4.1 cm. US/Abdomen Limited IMPRESSION: 1. Sided coarsened echotexture, concerning for cirrhosis. Clinical correlatio n is recommended. 2. Common bile duct is prominent measuring 0.9 cm in diameter. No common bile duct stone is seen. Reading Location: [facility]
[2024-07-18] MEDS: 0.9% Normal Saline (1000mL) 1,000 ML 1000 ML IV (15:43)
[2024-07-18] MEDS: Ondansetron 4 MG/2 ML Vial IV ×2 (15:44→21:20)
[2024-07-18] MEDS: Morphine 4 MG/ML Syringe IV (15:44)
--- NOTE | 2024-07-18 16:28 | EX.ED.DYSGE1 ---
HPI History of Present Illness Chief Complaint: General Illness Detail of Chief Complaint: Triage as generalized weakness. Patient reports upper abdominal pain predo Informant: patient Onset/Context/Timing Onset: Days Context: Sudden Onset Timing: Intermittent and Waxes and wanes Quality: Pain made worse with food Location: right upper quadrant epigastric Current Severity: Mild Maximum Severity: Moderate Worsened by: Food and palpation Relieved by: Presently nothing Associated Symptoms Associated Symptoms: Nausea without vomiting or diarrhea Narrative Narrative: Patient is a 68-year-old woman. She was seen on July 10. Her workup at that time included blood work, UA, CAT scan. CAT scan revealed pancreatic duct to be dilated to 6 mm within the head and 6 mm the proximal body noted on coronal images 56 and 47. There is also prominent appearance of the common bile duct that measures 3 mm. There is evidence of intrahepatic biliary ductal dilatation concerning for obstructive process. This was not noted on CAT scan that was obtained in 2022. There is no obvious pancreatic mass noted or calcific stones. Patient presents because of worsening pain. She complains of nausea. She is thirsty dry mouth. She had decreased solid and liquid intake. She does endorse decreased urine output. She denies dysuria, frequency, urgency or hematuria. She denies cardiac or respiratory symptoms. She states her gallbladder, appendix and uterus have not been removed. Prior similar symptoms: Yes Recent Illness/Hospitalization: Yes [facility] Medical History Dermatitis Vitamin deficiency Fatigue Headache Closed injury of head Insomnia CKD (chronic kidney disease) stage 3, GFR 30-59 ml/min Anxiety and depression Cataracts, both eyes Osteoporosis Type 2 diabetes mellitus Chronic neck pain with history of cervical spinal surgery Anemia Mural thrombus of heart Hiatal hernia History of peptic ulcer disease Essential (primary) hypertension History of ST elevation myocardial infarction (STEMI) BRYAN (obstructive sleep apnea) Multiple sclerosis Cervical spinal stenosis IBS (irritable bowel syndrome) RLS (restless legs syndrome) Takotsubo syndrome Atherosclerotic heart disease of [place] coronary artery without angina pectoris Paroxysmal atrial fibrillation Left ventricular hypertrophy Nicotine abuse Chronic systolic (congestive) heart failure Ischemic cardiomyopathy Diabetes mellitus type 2 in nonobese Apical mural thrombus with acute AL Vitamin B12 deficiency Irritable bowel syndrome with diarrhea COPD (chronic obstructive pulmonary disease) Home Medications ?Medication ?Instructions ?Recorded ?Last Taken ?Type modafinil 200 mg tablet 200 mg PO DAILY to stay awake 12/12/19 06/06/22 History acetaminophen 500 mg tablet 1,000 mg (2 x 500 mg) PO TID PRN 07/29/20 06/06/22 Rx pain -02/03 #1 TAB cholecalciferol (vitamin D3) 125 125 mcg PO DAILY supplement 11/05/21 06/06/22 History mcg (5,000 unit) capsule ferrous sulfate 325 mg (65 mg 325 mg PO DAILY supplement 11/05/21 06/05/22 History iron) tablet aspirin 81 mg tablet,delayed 81 mg PO DAILY heart health 04/01/22 06/06/22 History release (Adult Aspirin Regimen) ascorbic acid (vitamin C) 500 mg 500 mg PO DAILY supplement 06/06/22 06/06/22 History chewable tablet atorvastatin 40 mg tablet 40 mg PO QHS cholesterol 06/06/22 06/05/22 History denosumab 60 mg/mL subcutaneous 60 mg subcut [id number] bone health 06/06/22 Unknown History syringe (Prolia) albuterol sulfate 2.5 mg/3 mL 2.5 mg (3 mL) inhalation Q8H PRN 07/21/22 Unknown Rx (0.083 %) solution for nebulization Dyspnea, wheezing #180 mL blood sugar diagnostic (Accu-Chek #100 ea 07/29/22 Unknown Rx Ada Plus test strips) ondansetron 4 mg disintegrating 4 mg PO Q8H PRN nausea and 09/02/22 Unknown Rx tablet vomiting #30 tabs pantoprazole 40 mg tablet,delayed 40 mg PO DAILY gerd #90 tabs 09/04/22 Unknown Rx release donepezil 10 mg tablet 20 mg PO .QLunch 09/11/22 Unknown History insulin lispro 100 unit/mL 1 sliding scale dose subcut QAC 09/11/22 Unknown History subcutaneous pen nitroglycerin 0.4 mg sublingual 0.4 mg sublingual Q5-15M #25 tabs 09/11/22 Unknown Rx tablet hydrocortisone 2.5 % topical cream 1 applic topical BID PRN skin 09/12/22 Unknown Rx irritation #454 grams albuterol sulfate 90 mcg/actuation 2 puff inhalation Q6H PRN 10/29/22 Unknown Rx aerosol inhaler shortness of breath or wheezing #8.5 grams hydroxyzine HCl 50 mg tablet See Rx Instructions .Route 11/21/22 Unknown Rx .COMPLEX #60 tabs vibegron 75 mg tablet (Gemtesa) 75 mg PO DAILY 01/30/23 Unknown History isosorbide mononitrate 30 mg 30 mg PO BID heart #180 tabs 06/22/23 Unknown Rx tablet,extended release 24 hr lidocaine 5 % topical patch 1 patch topical DAILY 06/22/23 Unknown History (Lidoderm) oxycodone 5 mg capsule 5 mg PO DAILY PRN pain 06/22/23 Unknown History apixaban 5 mg tablet (Eliquis) 5 mg PO BID #180 tabs 10/02/23 Unknown Rx carvedilol 12.5 mg tablet 12.5 mg PO BID this is a dose 11/23/23 Unknown Rx increase #180 tabs losartan 50 mg tablet 50 mg PO BID #180 tabs 12/14/23 Unknown Rx ropinirole 2 mg tablet 2 mg PO QHS restless leg 03/01/24 Unknown History sucralfate 1 gram tablet 1 g PO 4X/DAY reflux 03/01/24 Unknown History duloxetine 30 mg capsule,delayed 30 mg PO BID mental health #180 05/03/24 Unknown Rx release (Cymbalta) caps ramelteon 8 mg tablet 8 mg PO QHS PRN sleep #90 tabs 05/03/24 Unknown Rx ropinirole 1 mg tablet 1 mg PO QDAY 05/03/24 Unknown History dicyclomine 20 mg tablet 20 mg PO BID 07/10/24 Unknown History fluorometholone 0.1 % eye 1 drp ophthalmic (eye) BID 07/10/24 Unknown History drops,suspension ondansetron HCl 4 mg tablet 4 mg PO Q8H PRN PRN nausea and 07/10/24 Unknown History vomiting quetiapine 100 mg tablet See Rx Instructions .Route 07/12/24 Unknown Rx .COMPLEX #90 tabs quetiapine 25 mg tablet 25 mg PO QHS #90 tabs 07/12/24 Unknown Rx clotrimazole-betamethasone 1 applic topical BID 07/18/24 Unknown History %-0.05 % topical cream nitrofurantoin 1 cap PO BID 07/18/24 Unknown History monohydrate/macrocrystals 100 mg capsule nystatin 100,000 unit/gram topical topical 07/18/24 Unknown History powder (Nystop) pioglitazone 30 mg tablet 30 mg PO DAILY 07/18/24 Unknown History tirzepatide 10 mg/0.5 mL 10 mg subcut QWEEK 07/18/24 Unknown History subcutaneous pen injector (Adarshungaelro) tizanidine 2 mg tablet mg PO 07/18/24 Unknown History Allergy/AdvReac Type Severity Reaction Status Date / Time vancomycin Allergy Severe Anaphylaxis Verified 07/18/24 13:09 indomethacin (From Indocin) Allergy Hives Verified 07/18/24 13:09 indomethacin sodium (From Allergy Hives Verified 07/18/24 13:09 Indocin) iodine Allergy Hives Verified 07/18/24 13:09 propoxyphene napsylate (From Allergy Out of Verified 07/18/24 13:09 Darvocet-N) control trazodone AdvReac Intermediate Other Verified 07/18/24 13:09 aripiprazole (From Abilify) AdvReac Other Verified 07/18/24 13:09 aspirin AdvReac Upset Verified 07/18/24 13:09 Stomach clindamycin AdvReac Nausea Verified 07/18/24 13:09 metformin AdvReac Other Verified 07/18/24 13:09 sumatriptan (From Imitrex) AdvReac Vomiting Verified 07/18/24 13:09 Family History Father Cancer Lung cancer Mother Cancer Pancreatic cancer Surgical History Hx of lumbosacral spine surgery Hx of bilateral cataract extraction (~03/2022) History of endoscopy History of left heart catheterization (09/25/20) History of loop recorder (06/2014) History of amputation of left great toe History of left knee surgery History of tonsillectomy and adenoidectomy History of back surgery History of cervical discectomy History of coronary artery stent placement (04/08/16) Social History household members: none housing: house Smoking Status: Current every day smoker tobacco type: cigarettes alcohol intake: never substance use type: does not use caffeine: Yes Type: coffee Number of servings: 1 what type of physical activity do you participate in: none and other details: Physical Therapy ROS ROS ED Constitutional Constitutional ED: Denies chills, fever(s), subjective or sweats Eyes Eyes: Denies blurry vision or change in vision ENT ENT ED: Denies ear pain, rhinorrhea or sore throat Cardiovascular Cardiovascular: Denies chest pain, orthopnea, palpitations, paroxysmal nocturnal dyspnea or racing heartbeat Respiratory/Chest Respiratory/Chest: Denies cough, dyspnea, dyspnea on exertion, orthopnea or paroxysmal nocturnal dyspnea Gastrointestinal Gastrointestinal: Reports abdominal pain, nausea and other Details: Patient reports 1-2 stools that are mushy to watery for some time. ; Denies constipation, diarrhea, melena or vomiting Genitourinary Genitourinary ED: Denies dysuria, hematuria or urinary frequency Musculoskeletal Musculoskeletal: Denies arthralgias or myalgias Integumentary Denies rash Neurologic Neurologic: Reports weakness; Denies headache(s) or paresthesias Psychiatric Psychiatric: Reports depression Endocrine Endocrinology: Denies cold intolerance or heat intolerance Hematologic/Lymphatic Hematologic/Lymphatic: Reports systems reviewed and no addt'l complaints, except as documented EXAM Physical Exam Const Vital Signs: 07/18/24 13:09 07/18/24 13:14 07/18/24 14:35 Temperature 98.5 F 98.5 F 98.3 F Temperature Source Oral Oral Oral Pulse Rate 66 66 78 Respiratory Rate 18 18 19 H Respiratory Effort Respiratory Pattern Blood Pressure 149/71 H 149/71 H 140/78 H Blood Pressure Mean 97 97 98 Pulse Ox 100 100 92 Oxygen Delivery Method Room Air Room Air 07/18/24 14:35 07/18/24 15:00 Temperature 98.9 F Temperature Source Oral Pulse Rate 57 L Respiratory Rate 18 Respiratory Effort Normal Non-Labored Respiratory Pattern Normal Blood Pressure 140/73 H Blood Pressure Mean 95 Pulse Ox 97 Oxygen Delivery Method Positive well nourished and well developed General Appearance ED: well developed; Negative for cyanotic, diaphoretic, NAD or pallor HEENT Reports dry mucous membranes HEENT Narrative: Head is atraumatic no cephalic. Ears normal. Nares patent. Posterior pharynx is normal. Mouth ED: Yes dry mucous membranes Mouth: dry mucous membranes Eyes PERRL and EOMs intact bilaterally General Eye ED: Negative for pale conjunctiva or scleral icterus Neck no lymphadenopathy, supple and no JVD Chest Wall inspection of chest normal and palpation of chest normal Resp normal respiratory effort and clear to auscultation bilaterally Cardio regular rate, regular rhythm, S1 normal heart sound, S2 normal heart sound and no murmurs GI no masses; Negative for normal to inspection, nondistended, normoactive bowel sounds, non-tender, non-distended or hepatosplenomegaly Inspection: abdominal distention Auscultation: hypoactive bowel sounds Palpation: soft, tender epigastric and RUQ and guarding RUQ; Negative for splenomegaly, mass or rebound tenderness present Back/Spine no CVA tenderness Extremity normal to inspection Neuro oriented x3 and CN's II-XII intact bilaterally Sensorium / Orientation: alert Psych mental status grossly normal Skin no rashes or lesions noted, no wounds and No skin turgor normal General Skin Exam: Negative for jaundice or pallor MDM MDM MDM Narrative Medical decision making narrative: Differential diagnosis is choledocholithiasis, cancer, benign obstructing mass, will obtain appropriate blood work. Ultrasound was ordered in light of the CAT scan results from July 10. History & Record Review Additional record(s) reviewed:: Prior outpatient record, Prior ED visit and Prior labs Lab Data Attestation: I reviewed the patient's lab results. Lab results narrative: White count is remarkable for mild anemia with normal indices. Transaminases are unremarkable. Alkaline phosphatase slightly elevated 137. Glucose is 149 with normal CO2 anion gap. BUN to creatinine ratio is 23:1. Labs: Laboratory Results - last 24 hr 07/18/24 13:41 WBC 7.7 RBC 3.89 L Hgb 11.6 L Hct 35.7 L MCV 91.8 MCH 29.8 MCHC 32.5 RDW Std Deviation 53.1 H RDW Coeff of [place] 15.8 H Plt Count 236 MPV 10.1 Immature Gran % (Auto) 0.500 Neut % (Auto) 62.7 Lymph % (Auto) 22.2 [place] % (Auto) 9.4 Eos % (Auto) 4.3 Baso % (Auto) 0.9 Absolute Neuts (auto) 4.9 Absolute Lymphs (auto) 1.72 Nucleated RBC % 0 Sodium 134 Potassium 4.2 Chloride 100 Carbon Dioxide 25.3 Anion Gap 8 BUN 18 Creatinine 0.77 Est GFR (MDRD) Non-Af 84 BUN/Creatinine Ratio 23.1 H Glucose 149 H Calcium 10.2 Total Bilirubin 0.29 AST 16 ALT 11 Alkaline Phosphatase 137 H Total Protein 6.2 Albumin 3.7 Globulin 2.5 Albumin/Globulin Ratio 1.5 Lipase 31 Radiography Diagnostic Testing: Clinical Impression(s) from Imaging Studies Abdomen Ultrasound 07/18/24 15:10 IMPRESSION: 1. Sided coarsened echotexture, concerning for cirrhosis. Clinical correlation is recommended. 2. Common bile duct is prominent measuring 0.9 cm in diameter. No common bile duct stone is seen. Reading Location: [facility] Management Discussion w/another healthcare provider: Hospitalist (Spoke with Dr. Renae Santos. Patient to be observation status [facility] unit. She was informed of Dr. Kc's recommendations.) and Janitor Caretaker (In light of patient's history, physical findings, CT images from July 10 and ultrasound imaging results from today Dr. Stephanie kc was contacted. He is recommending admission with MRCP. Hospitalist has been paged.) Discharge Plan Triage Chief Complaint: General Illness ED Provider: Alford,Michael Dx/Rx/DC Orders Clinical Impression: Acute upper abdominal pain, Essential (primary) hypertension, Type 2 diabetes mellitus, Hyperlipemia, BRYAN (obstructive sleep apnea), Common bile duct dilatation, Dilation of pancreatic duct Prescriptions: No Action cholecalciferol (vitamin D3) 125 mcg (5,000 unit) capsule 125 mcg PO DAILY ferrous sulfate 325 mg (65 mg iron) tablet 325 mg PO DAILY aspirin [Adult Aspirin Regimen] 81 mg tablet,delayed release (DR/EC) 81 mg PO DAILY donepezil 10 mg tablet 20 mg PO .QLunch insulin lispro 100 unit/mL insulin pen 1 sliding scale dose subcut QAC Patient Comments: Use with meals based on PRE meal blood sugar SLIDING SCALE as needed #1 (1 unit for every 50 over 150) Max 20 units daily. nitroglycerin 0.4 mg tablet, sublingual 0.4 mg sublingual Q5-15M Qty: 25 3RF albuterol sulfate 2.5 mg /3 mL (0.083 %) solution for nebulization 2.5 mg inhalation Q8H PRN (Reason: Dyspnea, wheezing) Qty: 180 0RF hydrocortisone 2.5 % cream 1 applic topical BID PRN (Reason: skin irritation) Qty: 454 1RF Gemtesa 75 mg tablet 75 mg PO DAILY Mounjaro 5 mg/0.5 mL pen injector 10 mg subcut .weekly Patient Comments: INJECT 5MG SUBCUTANEOUSLY EVERY WEEK oxycodone 5 mg capsule 5 mg PO DAILY PRN (Reason: pain) lidocaine [Lidoderm] 5 % adhesive patch,medicated 1 patch topical DAILY Rx Instructions: leave on most painful area for up to 12 hrs isosorbide mononitrate 30 mg tablet extended release 24 hr 30 mg PO BID Qty: 180 3RF ropinirole 1 mg tablet 1 mg PO QDAY duloxetine [Cymbalta] 30 mg capsule,delayed release(DR/EC) 30 mg PO BID Qty: 180 2RF ramelteon 8 mg tablet 8 mg PO QHS PRN (Reason: sleep) Qty: 90 1RF ropinirole 2 mg tablet 2 mg PO QHS Rx Instructions: 1mg at lunch and 2mg at HS sucralfate 1 gram tablet 1 g PO 4X/DAY modafinil 200 MG tablet 200 mg PO DAILY acetaminophen 500 MG tablet 1,000 mg PO TID PRN (Reason: pain -02/03) Qty: 1 0RF Rx Instructions: alternate with ibuprofen atorvastatin 40 mg tablet 40 mg PO QHS ascorbic acid (vitamin C) 500 mg tablet,chewable 500 mg PO DAILY Prolia 60 mg/mL syringe 60 mg subcut [id number] ondansetron HCl 4 mg tablet 4 mg PO Q8H PRN PRN (Reason: nausea and vomiting) dicyclomine 20 mg tablet 20 mg PO BID fluorometholone 0.1 % drops,suspension 1 drp ophthalmic (eye) BID (DME) Accu-Chek Ada Plus test strp Strip See Rx Instructions .Route Qty: 100 6RF Rx Instructions: As directed ondansetron 4 mg tablet,disintegrating 4 mg PO Q8H PRN (Reason: nausea and vomiting) Qty: 30 1RF pantoprazole 40 mg tablet,delayed release (DR/EC) 40 mg PO DAILY Qty: 90 1RF albuterol sulfate 90 mcg/actuation HFA aerosol inhaler 2 puff inhalation Q6H PRN (Reason: shortness of breath or wheezing) Qty: 8.5 2RF hydroxyzine HCl 50 mg tablet See Rx Instructions .ROUTE .COMPLEX Qty: 60 0RF Dose Instruction: TAKE 1 TABLET BY MOUTH TWICE DAILY NEEDED for itching Rx Instructions: TAKE 1 TABLET BY MOUTH TWICE DAILY NEEDED for itching Eliquis 5 mg tablet 5 mg PO BID Qty: 180 3RF carvedilol 12.5 mg tablet 12.5 mg PO BID Qty: 180 3RF Rx Instructions: must administer with a meal/food losartan 50 mg tablet 50 mg PO BID Qty: 180 3RF quetiapine 100 mg tablet See Rx Instructions .ROUTE .COMPLEX Qty: 90 1RF Dose Instruction: TAKE 1 TABLET BY MOUTH EVERY NIGHT AT BEDTIME for mood Rx Instructions: TAKE 1 TABLET BY MOUTH EVERY NIGHT AT BEDTIME for mood quetiapine 25 mg tablet 25 mg PO QHS Qty: 90 0RF Rx Instructions: To be taken with 100 mg tablet at bedtime for nightly dose of 125 mg qHS Primary Care Provider: Carlton Rocha Referrals: Carlton Rocha, RESPIRATORY THERAPY INSTRUCTOR-C [Primary Care Provider] - Print Language: Polish Disposition Disposition: Acute Care Hospital [facility]
--- NOTE | 2024-07-18 17:35 | EX.PCM.CON.G ---
HPI Consult Data Date of Consult: 07/18/24 HPI Narrative Reason for Consultation: Abnormal imaging HPI Narrative: ELO HERNANDEZ, is a 68 F who [id number] year old female with extensive medical history including chronic pain, MS, long-term anticoagulation with Eliquis, COPD, type 2 diabetes mellitus, proximal atrial fibrillation, ischemic cardiomyopathy, coronary artery status post tenting, BRYAN IBS and recent urinary tract infection (currently on Augmentin for culture) presenting with abdominal pain. Patient states that she was recently has been having difficulty getting rid of a UTI, patient has been on 3 separate antibiotics over the last several weeks. Patient did see her urologist a couple days ago, urine was taken and a culture was sent. Pay states he is now developed some diarrhea, she also has pain to her upper epigastric area and feels nauseous. Patient is concerned that she might have something wrong with her gallbladder, or that the antibiotics messed up her stomach. She is here for evaluation. Ultrasound of the right upper quadrant : FINDINGS: LIVER: Liver measures 15.5 cm. Sided coarsened echotexture, concerning for cirrhosis. Clinical correlation is recommended. No intrahepatic bile duct dilation. GALLBLADDER: Negative Pool's sign was reported by the warehouse worker 2nd shift. No gallstones. COMMON BILE DUCT: Common bile duct is prominent measuring 0.9 cm in diameter. No common bile duct stone is seen. PANCREAS: Unremarkable as visualized. RIGHT KIDNEY: Unremarkable. No stones. No hydronephrosis. The right kidney measures 11.4 x 5.3 x 4.1 cm. US/Abdomen Limited IMPRESSION: 1. Sided coarsened echotexture, concerning for cirrhosis. Clinical correlation is recommended. 2. Common bile duct is prominent measuring 0.9 cm in diameter. No common bile duct stone is seen. CT scan abdomen pelvis : IMPRESSION: The pancreatic duct is dilated at 6 mm within the head and 6 mm at the proximal body for example coronal 56 and 47. There is also prominent appearance of the common bile duct at 7 mm with appearance of intrahepatic biliary ductal dilation. Concerning for obstructive process and is not appreciated on the previous limited noncontrast CT in 2022. An obvious pancreatic mass or calcified stone is not identified. Recommend correlation with LFTs and alkaline phosphatase, lipase and GI consult. The pancreas and liver otherwise appear within limits. Her LFTs are within normal limits. She also has been having diarrhea. She is followed by Dr. Aureliano Jiménez as an outpatient. She underwent an upper endoscopy. It was discovered to have peptic ulcer disease. She has been on Carafate and PPI therapy. Her other concern is that she started developing worsening diarrhea after being on 4 different antibiotics for recurrent urinary tract infection. Currently she has 2 more days of Macrobid. She does have a history of C. difficile colitis. [facility] Medical History Dermatitis Vitamin deficiency Fatigue Headache Closed injury of head Insomnia CKD (chronic kidney disease) stage 3, GFR 30-59 ml/min Anxiety and depression Cataracts, both eyes Osteoporosis Type 2 diabetes mellitus Chronic neck pain with history of cervical spinal surgery Anemia Mural thrombus of heart Hiatal hernia History of peptic ulcer disease Essential (primary) hypertension History of ST elevation myocardial infarction (STEMI) BRYAN (obstructive sleep apnea) Multiple sclerosis Cervical spinal stenosis IBS (irritable bowel syndrome) RLS (restless legs syndrome) Takotsubo syndrome Atherosclerotic heart disease of [place] coronary artery without angina pectoris Paroxysmal atrial fibrillation Left ventricular hypertrophy Nicotine abuse Chronic systolic (congestive) heart failure Ischemic cardiomyopathy Diabetes mellitus type 2 in nonobese Apical mural thrombus with acute [place] Vitamin B12 deficiency Irritable bowel syndrome with diarrhea COPD (chronic obstructive pulmonary disease) Home Medications ?Medication ?Instructions ?Recorded ?Last Taken ?Type modafinil 200 mg tablet 200 mg PO DAILY to stay awake 12/12/19 07/18/24 History acetaminophen 500 mg tablet 1,000 mg (2 x 500 mg) PO TID PRN 07/29/20 07/18/24 Rx pain -02/03 #1 TAB cholecalciferol (vitamin D3) 125 125 mcg PO DAILY supplement 11/05/21 07/18/24 History mcg (5,000 unit) capsule ferrous sulfate 325 mg (65 mg 325 mg PO DAILY supplement 11/05/21 07/18/24 History iron) tablet aspirin 81 mg tablet,delayed 81 mg PO DAILY heart health 04/01/22 07/18/24 History release (Adult Aspirin Regimen) ascorbic acid (vitamin C) 500 mg 500 mg PO DAILY supplement 06/06/22 07/17/24 History chewable tablet atorvastatin 40 mg tablet 40 mg PO QHS cholesterol 06/06/22 07/17/24 History denosumab 60 mg/mL subcutaneous 60 mg subcut [id number] bone health 06/06/22 01/22/24 History syringe (Prolia) albuterol sulfate 2.5 mg/3 mL 2.5 mg (3 mL) inhalation Q8H PRN 07/21/22 Unknown Rx (0.083 %) solution for nebulization Dyspnea, wheezing #180 mL blood sugar diagnostic (Accu-Chek #100 ea 07/29/22 Unknown Rx Ada Plus test strips) pantoprazole 40 mg tablet,delayed 40 mg PO DAILY gerd #90 tabs 09/04/22 07/18/24 Rx release donepezil 10 mg tablet 20 mg PO DAILY 09/11/22 07/18/24 History insulin lispro 100 unit/mL 1 sliding scale dose subcut QAC 09/11/22 07/12/24 History subcutaneous pen nitroglycerin 0.4 mg sublingual 0.4 mg sublingual Q5-15M #25 tabs 09/11/22 Unknown Rx tablet hydrocortisone 2.5 % topical cream 1 applic topical BID PRN skin 09/12/22 Unknown Rx irritation #454 grams albuterol sulfate 90 mcg/actuation 2 puff inhalation Q6H PRN 10/29/22 07/18/24 Rx aerosol inhaler shortness of breath or wheezing #8.5 grams hydroxyzine HCl 50 mg tablet See Rx Instructions .Route 11/21/22 07/18/24 Rx .COMPLEX #60 tabs vibegron 75 mg tablet (Gemtesa) 75 mg PO DAILY 01/30/23 07/17/24 History isosorbide mononitrate 30 mg 30 mg PO BID heart #180 tabs 06/22/23 07/18/24 Rx tablet,extended release 24 hr lidocaine 5 % topical patch 1 patch topical DAILY 06/22/23 07/15/24 History (Lidoderm) oxycodone 5 mg capsule 5 mg PO DAILY PRN pain 06/22/23 Unknown History apixaban 5 mg tablet (Eliquis) 5 mg PO BID #180 tabs 10/02/23 07/18/24 Rx carvedilol 12.5 mg tablet 12.5 mg PO BID this is a dose 11/23/23 07/18/24 Rx increase #180 tabs losartan 50 mg tablet 50 mg PO BID #180 tabs 12/14/23 07/17/24 Rx ropinirole 2 mg tablet 2 mg PO QHS restless leg 03/01/24 07/17/24 History sucralfate 1 gram tablet 1 g PO 4X/DAY reflux 03/01/24 07/18/24 History duloxetine 30 mg capsule,delayed 30 mg PO BID mental health #180 05/03/24 07/18/24 Rx release (Cymbalta) caps ramelteon 8 mg tablet 8 mg PO QHS PRN sleep #90 tabs 05/03/24 07/17/24 Rx ropinirole 1 mg tablet 1 mg PO QDAY 05/03/24 07/18/24 History dicyclomine 20 mg tablet 20 mg PO BID 07/10/24 07/18/24 History fluorometholone 0.1 % eye 1 drp ophthalmic (eye) BID 07/10/24 07/18/24 History drops,suspension ondansetron HCl 4 mg tablet 4 mg PO Q8H PRN nausea and vomiting 07/10/24 07/18/24 History quetiapine 25 mg tablet 25 mg PO QHS #90 tabs 07/12/24 07/17/24 Rx clotrimazole-betamethasone 1 1 applic topical BID 07/18/24 07/17/24 History %-0.05 % topical cream nitrofurantoin 1 cap PO BID 07/18/24 07/18/24 History monohydrate/macrocrystals 100 mg capsule nystatin 100,000 unit/gram topical 1 applic topical BID 07/18/24 07/18/24 History powder (Nystop) quetiapine 100 mg tablet See Rx Instructions .Route .COMPLEX 07/18/24 07/17/24 History tirzepatide 10 mg/0.5 mL 10 mg subcut QWEEK 07/18/24 07/12/24 History subcutaneous pen injector (Mounjaro) tizanidine 2 mg tablet 2 - 4 mg PO QHS PRN pain 07/18/24 07/17/24 History tizanidine 2 mg tablet 2 mg PO DAILY PRN pain 07/18/24 07/18/24 History Allergy/AdvReac Type Severity Reaction Status Date / Time vancomycin Allergy Severe Anaphylaxis Verified 07/18/24 13:09 indomethacin (From Indocin) Allergy Hives Verified 07/18/24 13:09 indomethacin sodium (From Allergy Hives Verified 07/18/24 13:09 Indocin) iodine Allergy Hives Verified 07/18/24 13:09 propoxyphene napsylate (From Allergy Out of Verified 07/18/24 13:09 Darvocet-N) control trazodone AdvReac Intermediate Other Verified 07/18/24 13:09 aripiprazole (From Abilify) AdvReac Other Verified 07/18/24 13:09 aspirin AdvReac Upset Verified 07/18/24 13:09 Stomach clindamycin AdvReac Nausea Verified 07/18/24 13:09 metformin AdvReac Other Verified 07/18/24 13:09 sumatriptan (From Imitrex) AdvReac Vomiting Verified 07/18/24 13:09 Family History Father Cancer Lung cancer Mother Cancer Pancreatic cancer Surgical History Hx of lumbosacral spine surgery Hx of bilateral cataract extraction (~03/2022) History of endoscopy History of left heart catheterization (09/25/20) History of loop recorder (06/2014) History of amputation of left great toe History of left knee surgery History of tonsillectomy and adenoidectomy History of back surgery History of cervical discectomy History of coronary artery stent placement (04/08/16) Social History household members: none housing: house Smoking Status: Current every day smoker tobacco type: cigarettes alcohol intake: never substance use type: does not use caffeine: Yes Type: coffee Number of servings: 1 what type of physical activity do you participate in: none and other details: Physical Therapy ROS ROS Narrative Admission Review of Systems: CONSTITUTIONAL: No weight loss, fever, chills, + weakness or fatigue. HEENT: + Headache. Eyes: No visual loss, blurred vision, double vision or yellow sclerae. Ears, Nose, Throat: No hearing loss, sneezing, congestion, runny nose or sore throat. SKIN: + chronic picking with facial picked regions/staged ecchymoses given recent falls. CARDIOVASCULAR: + Chronic chest pain with no complaints upon current presentation, No palpitations, edema, orthopnea, syncopal events. RESPIRATORY: + Occasional shortness of breath, cough with increased yellow productive sputum, occasional wheezing, No hemoptysis. GASTROINTESTINAL: + No nausea, emesis, diarrhea, abdominal pain, melena, BRBPR. GENITOURINARY: No dysuria, frequency, urgency or retention. NEUROLOGICAL: + Significant debility/weakness with underlying multiple sclerosis, headache. No dizziness, syncope, paralysis, ataxia, numbness or tingling in the extremities, change in bowel or bladder control, seizure. MUSCULOSKELETAL:+ muscle, back pain, joint pain or stiffness. HEMATOLOGIC: + easy bleeding or bruising. LYMPHATICS: No enlarged nodes. No history of splenectomy. PSYCHIATRIC:+ history of depression or anxiety. ENDOCRINOLOGIC: No reports of sweating, cold or heat intolerance. No polyuria or polydipsia. ALLERGIES: history of hives. Physical Exam Const alert, oriented x3, no apparent distress and healthy appearing General Appearance: cooperative, well kempt and well developed Orientation / Consciousness: awake, oriented to person, oriented to place and oriented to time HEENT normocephalic and moist oral mucous membranes Eyes PERRL, EOMs intact bilaterally and conjunctivae normal Neck supple, no JVD and thyroid normal General: trachea midline Resp normal respiratory effort, no retractions, no use of accessory muscles and clear to auscultation bilaterally Auscultation: Negative for rales, rhonchi or wheezes Cardio regular rate, regular rhythm, no murmurs, no rub and no gallops GI normal to inspection, nondistended, normoactive bowel sounds, soft to palpation, non-tender and non-distended Extremity no clubbing, cyanosis or edema Skin no rashes or lesions noted General Skin Exam: no breakdown Neuro oriented x3, CN's II-XII intact bilaterally, moves all extremities, no focal motor deficits and no sensory deficits noted Sensorium / Orientation: awake and alert Speech: speech normal Psych affect normal Lab / Micro Data 07/18/24 13:41 07/18/24 13:41 Labs: Laboratory Results - last 24 hr 07/18/24 13:41: WBC 7.7, RBC 3.89 L, Hgb 11.6 L, Hct 35.7 L, MCV 91.8, MCH 29.8, MCHC 32.5, RDW Std Deviation 53.1 H, RDW Coeff of [place] 15.8 H, Plt Count 236, MPV 10.1, Immature Gran % (Auto) 0.500, Neut % (Auto) 62.7, Lymph % (Auto) 22.2, [place] % (Auto) 9.4, Eos % (Auto) 4.3, Baso % (Auto) 0.9, Absolute Neuts (auto) 4.9, Absolute Lymphs (auto) 1.72, Nucleated RBC % 0, Sodium 134, Potassium 4.2, Chloride 100, Carbon Dioxide 25.3, Anion Gap 8, BUN 18, Creatinine 0.77, Est GFR (MDRD) Non-Af 84, BUN/Creatinine Ratio 23.1 H, Glucose 149 H, Calcium 10.2, Total Bilirubin 0.29, AST 16, ALT 11, Alkaline Phosphatase 137 H, Total Protein 6.2, Albumin 3.7, Globulin 2.5, Albumin/Globulin Ratio 1.5, Lipase 31 Imaging Radiology Impression Abdomen Ultrasound 07/18/24 15:10 IMPRESSION: 1. Sided coarsened echotexture, concerning for cirrhosis. Clinical correlation is recommended. 2. Common bile duct is prominent measuring 0.9 cm in diameter. No common bile duct stone is seen. Reading Location: [facility] Assessment & Plan Assessment/Plan (1) Dilation of pancreatic duct: (2) Common bile duct dilatation: (3) Acute upper abdominal pain: PLAN: 68-year-old with history of possible multiple sclerosis. She also has a history of coronary artery disease with stenting to her LAD and angioplasty of her second diagonal in March [address] elevation myocardial infarction.? She was noted to have a left ventricle apical thrombus and cardiomyopathy with an ejection fraction of 25-30%.? This was repeated in June 2016 and the ejection fraction had improved to 40% with no evidence of ventricular thrombus.? She had a stress echo done in August of 2019 this improved to 55%.? Because of continued chest discomfort, She did have a stress test in August 2020 which was negative for ischemia.? She then did continue to complain of chest discomfort she did undergo a diagnostic heart catheterization in September 2020 which demonstrated patent stents. She has unfortunately had multiple visits to the emergency room for chest discomfort as well as elevated blood pressure. She also complained of abdominal discomfort hematemesis and had a GI evaluation. I do not have any records of her GI evaluation at that time. On October 27, 2021 she was admitted to [facility] for hypertensive emergency, right-sided abdominal pain. Patient did have a mildly elevated troponin. Echocardiogram demonstrated an ejection fraction of 48%, grade 1 diastolic dysfunction, small LV apical transmural thrombus noted. Left atrial cavity is moderately dilated. Right atrial cavity dilated. No significant valvular abnormalities noted. Stress test was found to be abnormal. Patient underwent a diagnostic heart catheterization and this was noted to be normal. She has been to our institution 2 times this month. On previous imaging there was possible pancreatic calcifications indicating she may have chronic pancreatitis. She denies any history of alcohol abuse. She does have diarrhea which could be secondary to pancreatic insufficiency. The differential diagnosis for abdominal pain with dilated common bile duct and pancreatic duct would be an ampullary lesion, ampullary stricture, malignancy, complications of chronic pancreatitis. She should undergo MRCP and ERCP for evaluation of her ampulla and distal common bile duct along with pancreatic duct. (4) Diarrhea: PLAN: Differential diagnosis for her diarrhea does include infectious colitis, IBS with diarrhea, pancreatic insufficiency. Recommend stool studies for enteric pathogens, C. difficile, white blood cells, lactoferrin and fecal elastase. Charges/Coding Visit Charges Inpatient E&M: 26958 Init Hosp L3
--- NOTE | 2024-07-18 18:33 | PCM.HP.STD ---
HPI - General General Date of Admission: 07/18/24 Date of Service: 07/18/24 Chief Complaint: Upper abdominal pain HPI Narrative ELO HERNANDEZ, is a 68-year-old female with a history of coronary artery disease with stenting, hypertension, type 2 diabetes, COPD, CHF, P A-fib, BR[facility] presented [facility] ED 07/18/2024 due to upper abdominal pain and generalized weakness as well as nausea. She was seen on July 10 and had a pancreatic duct dilated at 6 mm w/ prominence of common bile duct 3 mm with evidence of intrahepatic biliary ductal dilation that was not seen in 2022 but no obvious stones. Patient was discharged home in stable condition but came back due to worsening pain, nausea, poor p.o. intake with decreased urine output. Given recent imaging findings she had abdominal ultrasound which shows common bile duct of 0.9 cm in diameter with no stone seen. Dr. Jean was contacted who recommended admission with MRCP and he will see in consult. In the ED patient vitally stable with no elevation white blood cell count and AST and ALT within normal limits with only slight elevation of alk phos at 137. Patient evaluated at bedside and has multiple complaints. Reports she has pain in her upper abdomen and also feels she has been confused for the past week. She endorses multiple rounds of antibiotics for urinary tract infections and was recently changed to Macrobid and took a dose this morning, she has been nauseated, reports urinary frequency still, denies changes in bowel. When asking specific ROS patient had difficulty at times but primarily notes nausea and upper abdominal pain, denies any fever at home [facility] Medical History Dermatitis Vitamin deficiency Fatigue Headache Closed injury of head Insomnia CKD (chronic kidney disease) stage 3, GFR 30-59 ml/min Anxiety and depression Cataracts, both eyes Osteoporosis Type 2 diabetes mellitus Chronic neck pain with history of cervical spinal surgery Anemia Mural thrombus of heart Hiatal hernia History of peptic ulcer disease Essential (primary) hypertension History of ST elevation myocardial infarction (STEMI) BRYAN (obstructive sleep apnea) Multiple sclerosis Cervical spinal stenosis IBS (irritable bowel syndrome) RLS (restless legs syndrome) Takotsubo syndrome Atherosclerotic heart disease of [place] coronary artery without angina pectoris Paroxysmal atrial fibrillation Left ventricular hypertrophy Nicotine abuse Chronic systolic (congestive) heart failure Ischemic cardiomyopathy Diabetes mellitus type 2 in nonobese Apical mural thrombus with acute [place] Vitamin B12 deficiency Irritable bowel syndrome with diarrhea COPD (chronic obstructive pulmonary disease) Home Medications ?Medication ?Instructions ?Recorded ?Last Taken ?Type modafinil 200 mg tablet 200 mg PO DAILY to stay awake 12/12/19 07/18/24 History acetaminophen 500 mg tablet 1,000 mg (2 x 500 mg) PO TID PRN 07/29/20 07/18/24 Rx pain #1 TAB cholecalciferol (vitamin D3) 125 125 mcg PO DAILY supplement 11/05/21 07/18/24 History mcg (5,000 unit) capsule ferrous sulfate 325 mg (65 mg 325 mg PO DAILY supplement 11/05/21 07/18/24 History iron) tablet aspirin 81 mg tablet,delayed 81 mg PO DAILY heart health 04/01/22 07/18/24 History release (Adult Aspirin Regimen) ascorbic acid (vitamin C) 500 mg 500 mg PO DAILY supplement 06/06/22 07/17/24 History chewable tablet atorvastatin 40 mg tablet 40 mg PO QHS cholesterol 06/06/22 07/17/24 History denosumab 60 mg/mL subcutaneous 60 mg subcut [id number] bone health 06/06/22 01/22/24 History syringe (Prolia) albuterol sulfate 2.5 mg/3 mL 2.5 mg (3 mL) inhalation Q8H PRN 07/21/22 Unknown Rx (0.083 %) solution for nebulization Dyspnea, wheezing #180 mL blood sugar diagnostic (Accu-Chek #100 ea 07/29/22 Unknown Rx Ada Plus test strips) pantoprazole 40 mg tablet,delayed 40 mg PO DAILY gerd #90 tabs 09/04/22 07/18/24 Rx release donepezil 10 mg tablet 20 mg PO DAILY 09/11/22 07/18/24 History insulin lispro 100 unit/mL 1 sliding scale dose subcut QAC 09/11/22 07/12/24 History subcutaneous pen nitroglycerin 0.4 mg sublingual 0.4 mg sublingual Q5-15M #25 tabs 09/11/22 Unknown Rx tablet hydrocortisone 2.5 % topical cream 1 applic topical BID PRN skin 09/12/22 Unknown Rx irritation #454 grams albuterol sulfate 90 mcg/actuation 2 puff inhalation Q6H PRN 10/29/22 07/18/24 Rx aerosol inhaler shortness of breath or wheezing #8.5 grams hydroxyzine HCl 50 mg tablet See Rx Instructions .Route 11/21/22 07/18/24 Rx .COMPLEX #60 tabs vibegron 75 mg tablet (Gemtesa) 75 mg PO DAILY 01/30/23 07/17/24 History isosorbide mononitrate 30 mg 30 mg PO BID heart #180 tabs 06/22/23 07/18/24 Rx tablet,extended release 24 hr lidocaine 5 % topical patch 1 patch topical DAILY 06/22/23 07/15/24 History (Lidoderm) oxycodone 5 mg capsule 5 mg PO DAILY PRN pain 06/22/23 Unknown History apixaban 5 mg tablet (Eliquis) 5 mg PO BID #180 tabs 10/02/23 07/18/24 Rx carvedilol 12.5 mg tablet 12.5 mg PO BID this is a dose 11/23/23 07/18/24 Rx increase #180 tabs losartan 50 mg tablet 50 mg PO BID #180 tabs 12/14/23 07/17/24 Rx ropinirole 2 mg tablet 2 mg PO QHS restless leg 03/01/24 07/17/24 History sucralfate 1 gram tablet 1 g PO 4X/DAY reflux 03/01/24 07/18/24 History duloxetine 30 mg capsule,delayed 30 mg PO BID mental health #180 05/03/24 07/18/24 Rx release (Cymbalta) caps ramelteon 8 mg tablet 8 mg PO QHS PRN sleep #90 tabs 05/03/24 07/17/24 Rx ropinirole 1 mg tablet 1 mg PO QDAY 05/03/24 07/18/24 History dicyclomine 20 mg tablet 20 mg PO BID 07/10/24 07/18/24 History fluorometholone 0.1 % eye 1 drp ophthalmic (eye) BID 07/10/24 07/18/24 History drops,suspension ondansetron HCl 4 mg tablet 4 mg PO Q8H PRN nausea and vomiting 07/10/24 07/18/24 History quetiapine 25 mg tablet 25 mg PO QHS #90 tabs 07/12/24 07/17/24 Rx clotrimazole-betamethasone 1 1 applic topical BID 07/18/24 07/17/24 History %-0.05 % topical cream nitrofurantoin 1 cap PO BID 07/18/24 07/18/24 History monohydrate/macrocrystals 100 mg capsule nystatin 100,000 unit/gram topical 1 applic topical BID 07/18/24 07/18/24 History powder (Nystop) quetiapine 100 mg tablet See Rx Instructions .Route .COMPLEX 07/18/24 07/17/24 History tirzepatide 10 mg/0.5 mL 10 mg subcut QWEEK 07/18/24 07/12/24 History subcutaneous pen injector (Aston) tizanidine 2 mg tablet 2 - 4 mg PO QHS PRN pain 07/18/24 07/17/24 History tizanidine 2 mg tablet 2 mg PO DAILY PRN pain 07/18/24 07/18/24 History Allergy/AdvReac Type Severity Reaction Status Date / Time vancomycin Allergy Severe Anaphylaxis Verified 07/18/24 13:09 indomethacin (From Indocin) Allergy Hives Verified 07/18/24 13:09 indomethacin sodium (From Allergy Hives Verified 07/18/24 13:09 Indocin) iodine Allergy Hives Verified 07/18/24 13:09 propoxyphene napsylate (From Allergy Out of Verified 07/18/24 13:09 Darvocet-N) control trazodone AdvReac Intermediate Other Verified 07/18/24 13:09 aripiprazole (From Abilify) AdvReac Other Verified 07/18/24 13:09 aspirin AdvReac Upset Verified 07/18/24 13:09 Stomach clindamycin AdvReac Nausea Verified 07/18/24 13:09 metformin AdvReac Other Verified 07/18/24 13:09 sumatriptan (From Imitrex) AdvReac Vomiting Verified 07/18/24 13:09 Family History Father Cancer Lung cancer Mother Cancer Pancreatic cancer Surgical History Hx of lumbosacral spine surgery Hx of bilateral cataract extraction (~03/2022) History of endoscopy History of left heart catheterization (09/25/20) History of loop recorder (06/2014) History of amputation of left great toe History of left knee surgery History of tonsillectomy and adenoidectomy History of back surgery History of cervical discectomy History of coronary artery stent placement (04/08/16) Social History household members: none housing: house Smoking Status: Current every day smoker tobacco type: cigarettes alcohol intake: never substance use type: does not use caffeine: Yes Type: coffee Number of servings: 1 what type of physical activity do you participate in: none and other details: Physical Therapy ROS ROS Narrative Patient poor historian with a somewhat inconsistent history, does consistently report upper abdominal discomfort and nausea with some urinary frequency and some confusion over the past week Vital Signs Vital Signs Vital Signs: 07/18/24 13:09 07/18/24 13:14 07/18/24 14:35 Temperature 98.5 F 98.5 F 98.3 F Temperature Source Oral Oral Oral Pulse Rate 66 66 78 Respiratory Rate 18 18 19 H Respiratory Effort Respiratory Pattern Blood Pressure 149/71 H 149/71 H 140/78 H Blood Pressure Mean 97 97 98 Pulse Ox 100 100 92 Oxygen Delivery Method Room Air Room Air 07/18/24 14:35 07/18/24 15:00 07/18/24 16:00 Temperature 98.9 F 98.3 F Temperature Source Oral Oral Pulse Rate 57 L 78 Respiratory Rate 18 16 Respiratory Effort Normal Non-Labored Respiratory Pattern Normal Blood Pressure 140/73 H 162/69 H Blood Pressure Mean 95 100 Pulse Ox 97 98 Oxygen Delivery Method 07/18/24 17:00 07/18/24 17:00 07/18/24 18:00 Temperature 98.6 F 98.6 F 98.6 F Temperature Source Oral Oral Pulse Rate 80 80 78 Respiratory Rate 16 16 16 Respiratory Effort Respiratory Pattern Blood Pressure 160/70 H 160/70 H 124/62 H Blood Pressure Mean 100 100 82 Pulse Ox 98 98 98 Oxygen Delivery Method Physical Exam Narrative General: Patient alert, answers most questions appropriately but sometimes has difficulty in the middle of her sentence remembering what she was going to say HEENT: Atraumatic Eyes: Anicteric, normal conjunctiva, extraocular movements grossly intact Neck: Supple Respiratory: Clear to auscultation bilaterally, normal respiratory effort Cardiovascular: Regular rate GI: Soft, some tenderness in epigastric region Extremities: No edema Musculoskeletal: Moving all extremities Neuro: No overt focal neurological deficits Skin: Patient with some scattered scabs on her face Psych: Attempts to be cooperative Results Lab / Micro Data 07/18/24 13:41 07/18/24 13:41 Labs: Laboratory Results - last 24 hr 07/18/24 13:41: WBC 7.7, RBC 3.89 L, Hgb 11.6 L, Hct 35.7 L, MCV 91.8, MCH 29.8, MCHC 32.5, RDW Std Deviation 53.1 H, RDW Coeff of Yeimi 15.8 H, Plt Count 236, MPV 10.1, Immature Gran % (Auto) 0.500, Neut % (Auto) 62.7, Lymph % (Auto) 22.2, [place] % (Auto) 9.4, Eos % (Auto) 4.3, Baso % (Auto) 0.9, Absolute Neuts (auto) 4.9, Absolute Lymphs (auto) 1.72, Nucleated RBC % 0, Sodium 134, Potassium 4.2, Chloride 100, Carbon Dioxide 25.3, Anion Gap 8, BUN 18, Creatinine 0.77, Est GFR (MDRD) Non-Af 84, BUN/Creatinine Ratio 23.1 H, Glucose 149 H, Calcium 10.2, Total Bilirubin 0.29, AST 16, ALT 11, Alkaline Phosphatase 137 H, Total Protein 6.2, Albumin 3.7, Globulin 2.5, Albumin/Globulin Ratio 1.5, Lipase 31 Imaging Radiology Impression Abdomen Ultrasound 07/18/24 15:10 IMPRESSION: 1. Sided coarsened echotexture, concerning for cirrhosis. Clinical correlation is recommended. 2. Common bile duct is prominent measuring 0.9 cm in diameter. No common bile duct stone is seen. Reading Location: REPLACED BY [facility] Assessment & Plan Assessment/Plan (1) Acute upper abdominal pain: (2) Common bile duct dilatation: PLAN: Plan # Common bile duct dilation -No stone seen but it was noted to be prominent at 0.9 cm in diameter on ultrasound -MRCP -GI consult -Pain control/supportive care -Will hold Eliquis in the event patient will need any further testing or intervention -Lipase on LFTs within normal limits, minimal elevation in alk phos # Recurrent urinary tract infections -Patient reports multiple rounds of antibiotics but still having symptoms -Follows with Dr. Jessica -Reports she was placed on Macrobid, will continue and repeat UA and urine culture # Intermittent confusion -Patient reports some intermittent confusion over the past week which she attributes to her UTIs -Will check UA and urine culture, continue Macrobid in the interim, also check UDS and TSH -Given multiple medications on JUN if all else ruled out patient may be having these problems due to polypharmacy #?hx MS -Patient reports following on an outpatient basis for history of MS but does not appear to be on any medications for this -Reported following with a Dr. Roxy Gonzalez in [place] # History of coronary artery disease with stenting -On home aspirin and beta-amarilis -Continue statin -Heart healthy diet #GERD -Continue PPI #Depression/anxiety -Continue home medications # Restless leg syndrome -continue patient's home medication regimen #Hypertension -Continue carvedilol and Imdur -Query medication compliance, can resume home losartan if blood pressure continues to tolerate #Type 2 diabetes mellitus -Glucose checks and sliding scale insulin # History of BRYAN -Patient lost weight and was reevaluated and no longer requires CPAP # History of COPD -Continue inhalers -Incentive spirometer # History of chronic heart failure -Daily weights, I's and O's -Will be very careful with hydration and monitor respiratory and volume status # Paroxysmal atrial fibrillation -Patient on carvedilol and Eliquis -Will hold Eliquis in the event patient will need any further testing or intervention # Component of chronic memory impairment -Supportive care -Hold home donepezil in the short-term given patient's multiple medical problems, can be restarted at discharge, short-term holding will likely not impact long-term outcomes #DVT ppx: SCDs Florence Santos MD Charges/Coding Visit Charges Inpatient E&M: 78848 Init Hosp L2
[2024-07-18] MEDS: Nystatin Powder 15gm Bottle 1 APPLIC TOPICAL (21:19)
[2024-07-18] MEDS: 0.9% Saline Lock 10 ML Syringe IV (21:19)
[2024-07-18] MEDS: Morphine 2 MG/ML Syringe IV (21:19)
[2024-07-18] MEDS: QUEtiapine 25 MG Tablet PO (21:20)
[2024-07-18] MEDS: Pramipexole Di-HCl 1 MG Tablet PO (21:20)
[2024-07-18] MEDS: Isosorbide Mononitrate 30 MG Tablet PO (21:20)
[2024-07-18] MEDS: Sucralfate 1 GM Tablet PO (21:20)
[2024-07-18] MEDS: Atorvastatin Calcium 40 MG Tablet PO (21:20)
[2024-07-18] MEDS: Dicyclomine 10 MG Capsule 20 MG PO (21:20)
[2024-07-18] MEDS: QUEtiapine 100 MG Tablet PO (21:20)
[2024-07-18] MEDS: 0.9% Normal Saline (1000mL) 1,000 ML 50 ML IV (21:21)
[2024-07-18] MEDS: DULoxetine Hcl 30 MG Capsule PO (21:21)
[2024-07-18 21:54] LABS: Bedside Glucose 110 mg/dL (74-106)
--- NOTE | 2024-07-18 22:13 | CASEMGMT ---
Care Management Face to Face with patient for initial transition planning/care coordination assessment in the ED.? This technical proposal writer introduced self and role at [facility]. Patient alert and oriented. Patient willing to participate in assessment and is able to answer all questions appropriately.? Care providers, pharmacy, and demographics verified. Admitting Diagnosis:? Upper abdominal pain Other diagnosis history: ?COPD, diabetes, afib, heart disease, RLS, IBS, anemia, osteoporosis PCP: Josefina Specialists: [facility] neurology, [facility] psychiatry, [facility] cardiology, pain management, endocrinology, Preferred Pharmacy: [facility] Insurance: ?[facility]? Prescription Benefit: yes Living Will/HPOA: ?on file LNOK: sister Living Arrangements: lives by herself in a mobile home.? States she has a lift to enter.? Has been mostly independent with ADLs and IADLs Transportation: uses friends and [place] DME: ?rollator, cane, raised toilet, grab bars, shower chair, hospital bed, lift chair, blood pressure cuff, pulse ox HHC: ?[facility] Nurse 1 x week, PT 2 x week, ST 1 x week SNF/Rehab: [facility] Community Resources: ?[facility], [facility] , [place], [employer], [facility] supervisor customer records division Behavioral Health History: Patient goals: Patient wishes to discharge home if able. ?Disposition Plan: admission to acute; RN CM/SW to follow for discharge planning needs that may arise. Alexa Bird, HIGH SCHO[employer] TEACHER, MANAGER OF PHOTOGRAPHY
[2024-07-19 00:12] LABS: Amphetamine Urine NEGATIVE (<1000 ng/mL); Barbiturate Urine NEGATIVE (< 200 ng/mL); Benzodiazepine Urine NEGATIVE (< 200 ng/mL); Buprenorphine Urine NEGATIVE (< 200 ng/mL); Cocaine Urine NEGATIVE (< 300 ng/mL); Fentanyl, Urine NEGATIVE; Methadone Urine NEGATIVE (< 300 ng/mL); Opiates Urine PRESUMPTIVE POSITIVE (< 300 ng/mL); Oxycodone, Urine NEGATIVE (< 100 ng/mL); PCP Urine NEGATIVE (< 25 ng/mL); THC Urine NEGATIVE (< 50 ng/mL)
[2024-07-19 00:39] LABS: Bacteria 0 SEEN /hpf (None Seen); Mucous, Urine 0 SEEN /hpf (<or=2+)
[2024-07-19 00:43] LABS: Color, Urine Yellow (Yellow); Glucose, Dipstick Normal (Normal); Ketone-Dipstick Negative (Negative); Leukocyte Esterase-Dipstick 25 /ul (Negative); Nitrite-Dipstick Negative (Negative); Occult Blood-Urine 25 /ul (Negative); Protein-Dipstick 15 mg/dl (Negative); Urine Bilirubin Dipstick Negative (Negative); Urine Clarity Clear (Clear); Urine Urobilinogen Normal (Normal)
[2024-07-19 01:28] LABS: Red Blood Cells-Urine 0 SEEN /hpf (0-5); Squamous Epithelial Cells - UA 0-5 SEEN /hpf (5-10); White Blood Cells 0-5 SEEN /hpf (0-5)
[2024-07-19 02:59] VITALS: BP 117/62; PULSE 62; RESP 18; TEMP 36.4; O2SAT 99
[2024-07-19] MEDS: Morphine 2 MG/ML Syringe IV ×4 (03:11→21:18)
[2024-07-19 06:50] LABS: Absolute Lymphocyte Count 1.71 X10^3/uL (0.83-4.51); Basophil# 0.07 X10^3/uL; Eosinophils% 4.2 % (0-5); Hematocrit 34.2 % (37-47); Hemoglobin 10.9 g/dL (12.0-15.0); Lymphocyte # 1.71 X10^3/ul (0.83-4.51); Lymphocyte % 24.1 % (19-41); Mean Corp Hgb Conc 31.9 g/dL (32-36); Mean Corpuscular Hgb 29.7 pg (27.0-32.0); Mean Corpuscular Volume 93.2 fL (81-99); Mean Platelet Vol. 9.8 fl (6.2-12.0); Monocyte# 0.98 X10^3/uL; Monocyte% 13.8 % (0-10); NRBC Flagged by Analyzer 0 % (0-5); Neutrophil # 3.98 X10^3/uL (2.7-7.7); Neutrophil % 56.2 % (47-70); Platelet Count 209 K/mm3 (150-450); RBC Distribution Width CV 15.7 % (11.6-14.6); RBC Distribution Width SD 53.6 fl (35.1-43.9); Red Blood Count 3.67 M/mm3 (4.2-5.4); White Blood Count 7.1 K/mm3 (4.4-11.0)
[2024-07-19] MEDS: Insulin Lispro 100 UNIT/ML INSULN.PEN SC (06:58)
--- NOTE | 2024-07-19 07:12 | NURSING ---
MRI unsure of time of MRCP this am- will call when they know time
[2024-07-19 07:18] LABS: Bedside Glucose 170 mg/dL (74-106)
[2024-07-19 07:19] LABS: ALB/GLOB Ratio 1.4 RATIO (0.9-2.4); AST(SGOT) 13 U/L (<=31); Alanine Aminotransfer ALT/SGPT 8 U/L (<=34); Albumin, Serum 3.2 g/dL (3.4-4.8); Alkaline Phosphatase 108 U/L (35-104); Anion Gap 8 (5-15); BUN 16 mg/dL (4-19); BUN/Creat Ratio 21.4 RATIO (10-20); Carbon Dioxide 23.6 mmol/L (21.0-32.0); Chloride 104 mmol/L (98-108); Creatinine, Serum 0.74 mg/dL (0.70-1.20); EST Glomerular Filtration Rate 88 (>60); Estimated Creatinine Clearance 62.89 ml/min (50-250); Globulin 2.3 g/dL (2.2-4.2); Glucose 165 mg/dL (70-99); Potassium 3.9 mmol/L (3.3-5.1); Protein, Total 5.5 g/dL (5.9-8.4); Sodium Level 136 mmol/L (133-145); Total Bilirubin 0.27 mg/dL (0.00-1.30)
--- NOTE | 2024-07-19 07:21 | PCM.PN.HOSP ---
Reason for Visit Reason for Visit: Diagnoses Other specified diseases of biliary tract (07/18/24) Other specified diseases of pancreas (07/18/24) Upper abdominal pain, unspecified (07/18/24) Diarrhea, unspecified (07/18/24) Subjective Subjective Still with abdominal pain. Has had periods where she slurs her words and cannot think of the words to say, but at present. Objective Data Objective Data Vital Signs: Vital Signs Temp Pulse Resp BP Pulse Ox O2 Del Method 36.4 C L 62 18 117/62 99 Room Air 07/19/24 02:59 07/19/24 02:59 07/19/24 02:59 07/19/24 02:59 07/19/24 02:59 07/19/24 03:13 Oxygen Delivery Method Room Air Weight: 74.9 kg Body Mass Index (BMI) 30.2 Intake & Output: Intake and Output for Last 24 Hours 07/17/24 07/18/24 07/19/24 23:59 23:59 23:59 Intake Total 1000 / 1000 300 / 300 Output Total 200 / 200 Balance 1000 / 1000 100 / 100 Lab / Micro Data 07/19/24 06:17 07/19/24 06:17 Labs: Laboratory Results - last 24 hr 07/18/24 13:41: WBC 7.7, RBC 3.89 L, Hgb 11.6 L, Hct 35.7 L, MCV 91.8, MCH 29.8, MCHC 32.5, RDW Std Deviation 53.1 H, RDW Coeff of Yeimi 15.8 H, Plt Count 236, MPV 10.1, Immature Gran % (Auto) 0.500, Neut % (Auto) 62.7, Lymph % (Auto) 22.2, Cottle % (Auto) 9.4, Eos % (Auto) 4.3, Baso % (Auto) 0.9, Absolute Neuts (auto) 4.9, Absolute Lymphs (auto) 1.72, Nucleated RBC % 0, Sodium 134, Potassium 4.2, Chloride 100, Carbon Dioxide 25.3, Anion Gap 8, BUN 18, Creatinine 0.77, Est GFR (MDRD) Non-Af 84, BUN/Creatinine Ratio 23.1 H, Glucose 149 H, Calcium 10.2, Total Bilirubin 0.29, AST 16, ALT 11, Alkaline Phosphatase 137 H, Total Protein 6.2, Albumin 3.7, Globulin 2.5, Albumin/Globulin Ratio 1.5, Lipase 31 07/18/24 19:05: Stool Pancreat Elastase Cancelled 07/18/24 21:18: POC Glucose 110 H 07/18/24 22:28: Urine Color Yellow, Urine Clarity Clear, Urine pH 6.0, Ur Specific [place] 1.010, Urine Protein 15 H, Urine Glucose (UA) Normal, Urine Ketones Negative, Urine Occult Blood 25 H, Urine Nitrite Negative, Urine Bilirubin Negative, Urine Urobilinogen Normal, Ur Leukocyte Esterase 25 H, Urine RBC 0 SEEN, Urine WBC 0-5 SEEN, Ur Squamous Epith Cells 0-5 SEEN, Urine Bacteria 0 SEEN, Urine Mucus 0 SEEN, Urine Opiates Screen PRESUMPTIVE POSITIVE, U Buprenorphine Qual NEGATIVE, Ur Oxycodone Screen NEGATIVE, Urine Methadone Screen NEGATIVE, Urine Fentanyl Screen NEGATIVE, Ur Barbiturates Screen NEGATIVE, Ur Phencyclidine Scrn NEGATIVE, Ur Amphetamines Screen NEGATIVE, U Benzodiazepines Scrn NEGATIVE, Urine Cocaine Screen NEGATIVE, U Cannabinoids Screen NEGATIVE 07/19/24 06:17: WBC 7.1, RBC 3.67 L, Hgb 10.9 L, Hct 34.2 L, MCV 93.2, MCH 29.7, MCHC 31.9 L, RDW Std Deviation 53.6 H, RDW Coeff of Yeimi 15.7 H, Plt Count 209, MPV 9.8, Immature Gran % (Auto) 0.700, Neut % (Auto) 56.2, Lymph % (Auto) 24.1, Cottle % (Auto) 13.8 H, Eos % (Auto) 4.2, Baso % (Auto) 1.0, Absolute Neuts (auto) 4.0, Absolute Lymphs (auto) 1.71, Nucleated RBC % 0, Sodium 136, Potassium 3.9, Chloride 104, Carbon Dioxide 23.6, Anion Gap 8, BUN 16, Creatinine 0.74, Estim Creat Clear Calc 62.89, Est GFR (MDRD) Non-Af 88, BUN/Creatinine Ratio 21.4 H, Glucose 165 H, Calcium 10.0, Total Bilirubin 0.27, AST 13, ALT 8, Alkaline Phosphatase 108 H, Total Protein 5.5 L, Albumin 3.2 L, Globulin 2.3, Albumin/Globulin Ratio 1.4, TSH 1.440, VIJAY-1 Antibody TNP, SS-A/Ro IgG Antibody TNP, SS-B/La IgG Antibody TNP, Sm (Cano) Antibody TNP, H[employer]ER Antibody TNP, Antichromatin Antibodies TNP, Centromere B Antibody TNP 07/19/24 06:57: POC Glucose 170 H Radiography Diagnostic Testing: Radiology Impression Abdomen Ultrasound 07/18/24 15:10 IMPRESSION: 1. Sided coarsened echotexture, concerning for cirrhosis. Clinical correlation is recommended. 2. Common bile duct is prominent measuring 0.9 cm in diameter. No common bile duct stone is seen. Reading Location: [facility] Physical Exam Const alert and no apparent distress HEENT head/scalp atraumatic and moist oral mucous membranes Neck no lymphadenopathy Resp normal respiratory effort and no retractions Cardio regular rate and regular rhythm GI normal to inspection, nondistended, normoactive bowel sounds, soft to palpation, non-tender and non-distended Extremity normal to inspection and full ROM Neuro Sensorium / Orientation: awake and alert Assessment & Plan Assessment/Plan (1) Common bile duct dilatation: PLAN: 7mm on CT, 9mm on US. No choledocholithiasis noted GI consulted. MRCP ordered. May need ERCP (2) Dilation of pancreatic duct: PLAN: 6mm on CT No mass noted on CT. MRCP and ERCP. PLAN: Plan Chronic conditions: frequent UTIs. UA here was negative for infection. Previously on nitrofurantoin. Follow up with Dr. Jessica as outpt MCI: on donepezil, currently on hold. reported h/o confusion: may be multifactorial given dementia/MCI plus medications. Currently no issues as pt is appropriate. Depression/anxiety: quetiapine RLS: Mirapex. CAD: on ASA and statin. VTE prophylaxis: SCDs. Charges/Coding Visit Charges Inpatient E&M: 70544 Subs Hosp L2
[2024-07-19 08:50] VITALS: BP 164/72; PULSE 65; RESP 16; TEMP 36.2; O2SAT 99
[2024-07-19] MEDS: Ondansetron 4 MG/2 ML Vial IV ×2 (09:07→17:09)
[2024-07-19] MEDS: 0.9% Saline Lock 10 ML Syringe IV (09:07)
--- NOTE | 2024-07-19 10:00 | MRI_ITS ---
EXAM: MRCP ABDOMEN WITHOUT CONTRAST CLINICAL HISTORY: DILATED PANCREATIC AND CBD WITH RUQ PAIN COMPARISON: 07/10/2024; 07/18/2024 TECHNIQUE: MRI of the abdomen was performed with and without gadolinium FINDINGS: Lung bases: Trace bilateral pleural effusions are present.. Liver: Unremarkable. Gallbladder and bile ducts: Mild intra and extrahepatic biliary dilatation is present with the common bile duct measuring 9.5 mm. No obstructing lesion or choledocholithiasis is identified. The gallbladder is unremarkable. Spleen: Unremarkable. Pancreas: The main pancreatic duct is dilated measuring 6 mm in diameter at the pancreatic head, as seen on the previous exam. No obstructing lesion or filling defect is identified. Adrenals: Unremarkable. Kidneys and ureters: Unremarkable. Bowel: Unremarkable. Lymph nodes: Unremarkable. Peritoneum: Unremarkable. Vessels: Unremarkable. Retroperitoneum: Unremarkable. Abdominal wall: Unremarkable. Bones: Moderate multilevel degenerative changes are present with a S shaped scoliosis in the thoracolumbar spine.. MRI/MRCP Abdomen without Contrast IMPRESSION: 1. Mild intra and extrahepatic biliary dilatation as well as mild pancreatic du ctal dilatation. No obstructing etiology is identified. Correlation with laboratory values is recommended. ERCP can be co nsidered if clinically appropriate. 2. Trace bilateral pleural effusions. Reading Location: [facility]
[2024-07-19] MEDS: Fluorometholone 0.1% Susp 1 DRP DROPS OPHTHALMIC ×3 (10:08→21:07)
[2024-07-19 11:45] LABS: Bedside Glucose 113 mg/dL (74-106)
[2024-07-19 14:56] VITALS: BP 165/81; PULSE 65; RESP 16; TEMP 36.6; O2SAT 99
[2024-07-19] MEDS: Nystatin Powder 15gm Bottle 1 APPLIC TOPICAL ×2 (14:58→21:05)
--- NOTE | 2024-07-19 15:21 | CASEMGMT ---
JEAN MARIE CM in to discuss SADLER form with patient. RN CM explained SADLER form, patient voiced understanding. Pt signed form and filed in chart. Pt provided with a copy of signed SADLER form. Patient had no further questions or concerns at this time.
--- NOTE | 2024-07-19 15:22 | CASEMGMT ---
Discussed dc planning with pt, pt does want to return home with [facility]. Pt denies need need for a list of other options. Pt asks if there is mental health in the hospital. Asked pt if she meant as an inpatient and pt states she already sees Dr. Sultana. Pt asks if she can speak to someone for mental health. Pt doesn't report any crisis. She is aware that a SW would be available to speak with her. Pt would like this, updated SW.
[2024-07-19 16:45] LABS: Bedside Glucose 101 mg/dL (74-106)
[2024-07-19] MEDS: Dicyclomine 10 MG Capsule 20 MG PO (17:09)
[2024-07-19] MEDS: DULoxetine Hcl 30 MG Capsule PO (18:02)
[2024-07-19] MEDS: Carvedilol 12.5 MG Tablet PO (18:03)
[2024-07-19] MEDS: Isosorbide Mononitrate 30 MG Tablet PO (18:03)
[2024-07-19] MEDS: Vibegron 75 MG TABLET PO (18:03)
--- NOTE | 2024-07-19 18:03 | PN_ITS ---
Physical Exam Const alert and no apparent distress HEENT head/scalp atraumatic and moist oral mucous membranes Neck no lymphadenopathy Resp normal respiratory effort and no retractions Cardio regular rate and regular rhythm GI normal to inspection, nondistended, normoactive bowel sounds, soft to palpation, non-tender and non-distended Extremity normal to inspection and full ROM Neuro Sensorium / Orientation: awake and alert Assessment & Plan Assessment/Plan (1) Dilation of pancreatic duct: (2) Common bile duct dilatation: PLAN: She underwent MRCP : FINDINGS: Lung bases: Trace bilateral pleural effusions are present.. Liver: Unremarkable. Gallbladder and bile ducts: Mild intra and extrahepatic biliary dilatation is present with the common bile duct measuring 9.5 mm. No obstructing lesion or choledocholithiasis is identified. The gallbladder is unremarkable. Spleen: Unremarkable. Pancreas: The main pancreatic duct is dilated measuring 6 mm in diameter at the pancreatic head, as seen on the previous exam. No obstructing lesion or filling defect is identified. Adrenals: Unremarkable. Kidneys and ureters: Unremarkable. Bowel: Unremarkable. Lymph nodes: Unremarkable. Peritoneum: Unremarkable. Vessels: Unremarkable. Retroperitoneum: Unremarkable. Abdominal wall: Unremarkable. Bones: Moderate multilevel degenerative changes are present with a S shaped scoliosis in the thoracolumbar spine.. MRI/MRCP Abdomen without Contrast IMPRESSION: 1. Mild intra and extrahepatic biliary dilatation as well as mild pancreatic ductal dilatation. No obstructing etiology is identified. Correlation with laboratory values is recommended. ERCP can be considered if clinically appropriate. 2. Trace bilateral pleural effusions. Differential diagnosis for this abnormality would be an ampullary lesion, biliary stricture, stricture involving the pancreatic head secondary to chronic pancreatitis. She will undergo ERCP with evaluation of the distal common bile duct and ampulla. We will do this on 07/21/2024. N.p.o. past midnight on 07/20/2024 (3) Acute upper abdominal pain: PLAN: 68-year-old with history of possible multiple sclerosis. She also has a history of coronary artery disease with stenting to her LAD and angioplasty of h er second diagonal in March [address] elevation myocardial infarction.? She was noted to have a left ventricle apical thrombus and cardiomyopathy with an ejection fraction of 25-30%.? This was repeated in June 2016 and the ejection fraction had improved to 40% with no evidence of ventricular thrombus.? She had a stress echo done in August of 2019 this improved to 55%.? Because of continued chest discomfort, She did have a stress test in August 2020 which was negative for ischemia.? She then did continue to complain of chest discomfort she did undergo a diagnostic heart catheterization in September 2020 which demonstrated patent stents. She has unfortunately had multiple visits to the emergency room for chest discomfort as well as elevated blood pressure. She also complained of abdominal discomfort hematemesis and had a GI evaluation. I do not have any records of her GI evaluation at that time. On October 27, 2021 she was admitted to [facility] for hypertensive emergency, right-sided abdominal pain. Patient did have a mildly elevated troponin. Echocardiogram demonstrated an ejection fraction of 48%, grade 1 diastolic dysfunction, small LV apical transmural thrombus noted. Left atrial cavity is moderately dilated. Right atrial cavity dilated. No significant valvular abnormalities noted. Stress test was found to be abnormal. Patient underwent a diagnostic heart catheterization and this was noted to be normal. She has been to our institution 2 times this month. On previous imaging there was possible pancreatic calcifications indicating she may have chronic pancreatitis. She denies any history of alcohol abuse. She does have diarrhea which could be secondary to pancreatic insufficiency. The differential diagnosis for abdominal pain with dilated common bile duct and pancreatic duct would be an ampullary lesion, ampullary stricture, malignancy, complications of chronic pancreatitis. She should undergo MRCP and ERCP for evaluation of her ampulla and distal common bile duct along with pancreatic duct. (4) Diarrhea: PLAN: Differential diagnosis for her diarrhea does include infectious colitis, IBS with diarrhea, pancreatic insufficiency. Recommend stool studies for enteric pathogens, C. difficile, white blood cells, lactoferrin and fecal elastase. Visit Charges Inpatient E&M: 99950 Subs Hosp L3
[2024-07-19] MEDS: Nitrofurantoin Macrocrystals 100 MG Capsule PO (18:04)
[2024-07-19] MEDS: Ferrous Sulfate 325 MG Tablet PO (18:04)
[2024-07-19] MEDS: Pantoprazole Sodium 40 MG Tablet PO (18:05)
[2024-07-19] MEDS: Aspirin E.C. 81 MG Tablet PO (18:05)
[2024-07-19] MEDS: Pramipexole Di-HCl 0.5 MG Tablet PO (18:05)
[2024-07-19] MEDS: Acetaminophen 325 MG Tablet 650 MG PO (18:09)
[2024-07-19] MEDS: oxyCODONE 5 MG Tablet PO (18:10)
[2024-07-19 20:57] VITALS: BP 117/57; PULSE 58; RESP 16; TEMP 36.4; O2SAT 97
[2024-07-19] MEDS: QUEtiapine 25 MG Tablet PO (21:05)
[2024-07-19] MEDS: Atorvastatin Calcium 40 MG Tablet PO (21:05)
[2024-07-19] MEDS: QUEtiapine 100 MG Tablet PO (21:05)
[2024-07-19] MEDS: Pramipexole Di-HCl 1 MG Tablet PO (21:07)
[2024-07-19] MEDS: Sucralfate 1 GM Tablet PO (21:07)
[2024-07-19] MEDS: MELATONIN 3 MG TABLET PO (21:18)
[2024-07-19 21:43] LABS: Bedside Glucose 99 mg/dL (74-106)
[2024-07-20 04:20] VITALS: BP 178/73; PULSE 65; RESP 18; TEMP 36.3; O2SAT 100
[2024-07-20 04:23] LABS: Absolute Lymphocyte Count 1.69 X10^3/uL (0.83-4.51); Absolute Neutrophil Count 3.5 X10^3/uL (2.0-7.7); Basophil# 0.06 X10^3/uL; Basophil% 0.9 % (0-1); Eosinophil# 0.25 X10^3/uL; Eosinophils% 3.9 % (0-5); Hematocrit 35.9 % (37-47); Hemoglobin 11.6 g/dL (12.0-15.0); Lymphocyte # 1.69 X10^3/ul (0.83-4.51); Lymphocyte % 26.2 % (19-41); Mean Corp Hgb Conc 32.3 g/dL (32-36); Mean Corpuscular Hgb 29.7 pg (27.0-32.0); Mean Corpuscular Volume 92.1 fL (81-99); Mean Platelet Vol. 9.5 fl (6.2-12.0); Monocyte# 0.95 X10^3/uL; Monocyte% 14.8 % (0-10); NRBC Flagged by Analyzer 0 % (0-5); Neutrophil # 3.45 X10^3/uL (2.7-7.7); Neutrophil % 53.6 % (47-70); Platelet Count 181 K/mm3 (150-450); RBC Distribution Width CV 15.6 % (11.6-14.6); RBC Distribution Width SD 52.9 fl (35.1-43.9); White Blood Count 6.4 K/mm3 (4.4-11.0)
[2024-07-20] MEDS: Morphine 2 MG/ML Syringe IV ×3 (04:24→22:25)
[2024-07-20 04:57] LABS: ALB/GLOB Ratio 1.5 RATIO (0.9-2.4); AST(SGOT) 13 U/L (<=31); Alanine Aminotransfer ALT/SGPT 8 U/L (<=34); Albumin, Serum 3.5 g/dL (3.4-4.8); Alkaline Phosphatase 126 U/L (35-104); Anion Gap 9 (5-15); BUN 14 mg/dL (4-19); BUN/Creat Ratio 16.6 RATIO (10-20); Calcium,Total 10.4 mg/dL (7.6-11.0); Carbon Dioxide 25.1 mmol/L (21.0-32.0); Chloride 101 mmol/L (98-108); Creatinine, Serum 0.86 mg/dL (0.70-1.20); EST Glomerular Filtration Rate 73 (>60); Globulin 2.4 g/dL (2.2-4.2); Glucose 138 mg/dL (70-99); Potassium 4.3 mmol/L (3.3-5.1); Protein, Total 5.9 g/dL (5.9-8.4); Sodium Level 135 mmol/L (133-145)
[2024-07-20] MEDS: Sucralfate 1 GM Tablet PO ×4 (06:30→20:47)
[2024-07-20] MEDS: Insulin Lispro 100 UNIT/ML INSULN.PEN SC ×2 (06:33→16:36)
[2024-07-20 07:03] LABS: Bedside Glucose 182 mg/dL (74-106)
[2024-07-20 07:52] VITALS: BP 145/75; PULSE 62; RESP 16; TEMP 35.9
[2024-07-20 07:56] VITALS: O2SAT 100
--- NOTE | 2024-07-20 08:23 | PCM.PN.HOSP ---
Reason for Visit Reason for Visit: Diagnoses Other specified diseases of biliary tract (07/18/24) Other specified diseases of pancreas (07/18/24) Upper abdominal pain, unspecified (07/18/24) Diarrhea, unspecified (07/18/24) Subjective Subjective Still with abdominal pain. Objective Data Objective Data Vital Signs: Vital Signs Temp Pulse Resp BP Pulse Ox O2 Del Method 35.9 C L 62 16 145/75 H 100 Room Air 07/20/24 07:52 07/20/24 07:52 07/20/24 07:52 07/20/24 07:52 07/20/24 07:56 07/20/24 07:56 Oxygen Delivery Method Room Air Weight: 74.9 kg Body Mass Index (BMI) 30.2 Intake & Output: Intake and Output for Last 24 Hours 07/18/24 07/19/24 07/20/24 23:59 23:59 23:59 Intake Total 1000 / 1000 1599.17 / 1599.17 Output Total 200 / 200 Balance 1000 / 1000 1399.17 / 1399.17 Lab / Micro Data 07/20/24 04:04 07/20/24 04:04 Labs: Laboratory Results - last 24 hr 07/19/24 11:26: POC Glucose 113 H 07/19/24 16:27: POC Glucose 101 07/19/24 21:03: POC Glucose 99 07/20/24 04:04: WBC 6.4, RBC 3.90 L, Hgb 11.6 L, Hct 35.9 L, MCV 92.1, MCH 29.7, MCHC 32.3, RDW Std Deviation 52.9 H, RDW Coeff of Yeimi 15.6 H, Plt Count 181, MPV 9.5, Immature Gran % (Auto) 0.600, Neut % (Auto) 53.6, Lymph % (Auto) 26.2, [place] % (Auto) 14.8 H, Eos % (Auto) 3.9, Baso % (Auto) 0.9, Absolute Neuts (auto) 3.5, Absolute Lymphs (auto) 1.69, Nucleated RBC % 0, Sodium 135, Potassium 4.3, Chloride 101, Carbon Dioxide 25.1, Anion Gap 9, BUN 14, Creatinine 0.86, Estim Creat Clear Calc 58.50, Est GFR (MDRD) Non-Af 73, BUN/Creatinine Ratio 16.6, Glucose 138 H, Calcium 10.4, Total Bilirubin 0.20, AST 13, ALT 8, Alkaline Phosphatase 126 H, Total Protein 5.9, Albumin 3.5, Globulin 2.4, Albumin/Globulin Ratio 1.5 07/20/24 06:32: POC Glucose 182 H Radiography Diagnostic Testing: Radiology Impression MRCP 07/19/24 10:00 IMPRESSION: 1. Mild intra and extrahepatic biliary dilatation as well as mild pancreatic ductal dilatation. No obstructing etiology is identified. Correlation with laboratory values is recommended. ERCP can be considered if clinically appropriate. 2. Trace bilateral pleural effusions. Reading Location: [facility] Physical Exam Const alert and no apparent distress HEENT head/scalp atraumatic and moist oral mucous membranes HEENT Narrative: edentulous GI normal to inspection, nondistended, normoactive bowel sounds, soft to palpation, non-tender and non-distended Extremity normal to inspection and no clubbing, cyanosis or edema Neuro Sensorium / Orientation: awake and alert Assessment & Plan Assessment/Plan (1) Common bile duct dilatation: PLAN: 7mm on CT, 9mm on US. No choledocholithiasis noted GI consulted. MRCP mild intra and extrahepatic biliary dilation as well as mild pancreatic ductal dilation. GI following ERCP for 07/21 (2) Dilation of pancreatic duct: PLAN: as above. PLAN: Plan Chronic conditions: frequent UTIs. UA here was negative for infection. Previously on nitrofurantoin. Follow up with Dr. Jessica as outpt MCI: on donepezil, currently on hold. reported h/o confusion: may be multifactorial given dementia/MCI plus medications. Currently no issues as pt is appropriate. Depression/anxiety: quetiapine RLS: Mirapex. CAD: on ASA and statin. VTE prophylaxis: SCDs. Charges/Coding Visit Charges Inpatient E&M: 71879 Subs Hosp L2
[2024-07-20] MEDS: Carvedilol 12.5 MG Tablet PO ×2 (09:24→16:37)
[2024-07-20] MEDS: Nitrofurantoin Macrocrystals 100 MG Capsule PO ×2 (09:25→16:37)
[2024-07-20] MEDS: Dicyclomine 10 MG Capsule 20 MG PO ×2 (09:25→20:46)
[2024-07-20] MEDS: Fluorometholone 0.1% Susp 1 DRP DROPS OPHTHALMIC ×2 (09:26→16:38)
[2024-07-20] MEDS: DULoxetine Hcl 30 MG Capsule PO ×2 (09:26→20:47)
[2024-07-20] MEDS: Isosorbide Mononitrate 30 MG Tablet PO ×2 (09:26→20:48)
[2024-07-20] MEDS: Pramipexole Di-HCl 0.5 MG Tablet PO (09:30)
[2024-07-20] MEDS: Nystatin Powder 15gm Bottle 1 APPLIC TOPICAL ×2 (09:30→20:50)
[2024-07-20] MEDS: Pantoprazole Sodium 40 MG Tablet PO (09:30)
[2024-07-20] MEDS: Aspirin E.C. 81 MG Tablet PO (09:30)
[2024-07-20] MEDS: Ondansetron 4 MG/2 ML Vial IV ×2 (10:48→20:46)
[2024-07-20] MEDS: Modafinil 200 MG Tablet PO (10:50)
[2024-07-20] MEDS: Vibegron 75 MG TABLET PO (10:50)
[2024-07-20] MEDS: Lidocaine 5% Patch 1 PATCH TOPICAL (10:54)
[2024-07-20] MEDS: hydrOXYzine PAM 25 MG Capsule 50 MG PO ×2 (10:54→20:59)
[2024-07-20] MEDS: 0.9% Saline Lock 10 ML Syringe IV (10:55)
[2024-07-20 11:52] LABS: Bedside Glucose 154 mg/dL (74-106)
[2024-07-20 13:00] VITALS: RESP 18
[2024-07-20 13:08] LABS: Anti-Centromere B Ab <0.2 AI (0.0-0.9); Anti-Chromatin <0.2 AI (0.0-0.9); Anti-Jo <0.2 AI (0.0-0.9); Anti-Scleroderma-70 AB <0.2 AI (0.0-0.9); Anti-dsDNA Ab <1 IU/mL (0-9); RNP Ab <0.2 AI (0.0-0.9); SJOGREN'S Anti-SS-A test < 0.2 AI (0.0-0.9); SJOGREN'S Anti-SS-B test < 0.2 AI (0.0-0.9); Smith Ab <0.2 AI (0.0-0.9)
[2024-07-20 14:00] VITALS: BP 128/66; PULSE 66; RESP 16; TEMP 36.4; O2SAT 100
--- NOTE | 2024-07-20 14:39 | CASEMGMT ---
Discharge Planning HOMERO referral sent to [facility]. Francisca Ortiz DC Planning Asst.
--- NOTE | 2024-07-20 15:15 | CASEMGMT ---
Social Work SW called [facility] and informed of pt's hospital admission. Pt's geriatric case manager is Gabriella Miller ([phone]). Pt receives 8 hours of home health aids a week, goes to [facility] adult day 2 days a week, receives 10 home delivered meals a week and has a life alert and medication management system. Gabriella to be notified at time of discharge. WILLIAN Hardy
[2024-07-20] MEDS: oxyCODONE 5 MG Tablet PO ×2 (15:20→20:46)
[2024-07-20] MEDS: Donepezil HCl 10 MG Tablet 20 MG PO (15:23)
[2024-07-20] MEDS: Ferrous Sulfate 325 MG Tablet PO (15:23)
--- NOTE | 2024-07-20 16:25 | NURSING ---
All documentation by clinical nursing professor Aisha Gonzalez reviewed by nursing education consultant Amy AGEEN, RN.
[2024-07-20] MEDS: Acetaminophen 325 MG Tablet 650 MG PO (16:38)
[2024-07-20 17:01] LABS: Bedside Glucose 165 mg/dL (74-106)
--- NOTE | 2024-07-20 17:43 | PCM.PN.BLA ---
Progress Note Patient is tolerating her diet and rates her pain at a 5-6 out of 10. She complains of mild bloating. She also complains of mild nausea. Physical Exam Const alert and no apparent distress HEENT head/scalp atraumatic and moist oral mucous membranes HEENT Narrative: edentulous GI normal to inspection, nondistended, normoactive bowel sounds, soft to palpation, non-tender and non-distended Extremity normal to inspection and no clubbing, cyanosis or edema Neuro Sensorium / Orientation: awake and alert Assessment & Plan Assessment/Plan (1) Dilation of pancreatic duct: (2) Common bile duct dilatation: PLAN: She underwent MRCP : FINDINGS: Lung bases: Trace bilateral pleural effusions are present.. Liver: Unremarkable. Gallbladder and bile ducts: Mild intra and extrahepatic biliary dilatation is present with the common bile duct measuring 9.5 mm. No obstructing lesion or choledocholithiasis is identified. The gallbladder is unremarkable. Spleen: Unremarkable. Pancreas: The main pancreatic duct is dilated measuring 6 mm in diameter at the pancreatic head, as seen on the previous exam. No obstructing lesion or filling defect is identified. Adrenals: Unremarkable. Kidneys and ureters: Unremarkable. Bowel: Unremarkable. Lymph nodes: Unremarkable. Peritoneum: Unremarkable. Vessels: Unremarkable. Retroperitoneum: Unremarkable. Abdominal wall: Unremarkable. Bones: Moderate multilevel degenerative changes are present with a S shaped scoliosis in the thoracolumbar spine.. MRI/MRCP Abdomen without Contrast IMPRESSION: 1. Mild intra and extrahepatic biliary dilatation as well as mild pancreatic ductal dilatation. No obstructing etiology is identified. Correlation with laboratory values is recommended. ERCP can be considered if clinically appropriate. 2. Trace bilateral pleural effusions. Differential diagnosis for this abnormality would be an ampullary lesion, biliary stricture, stricture involving the pancreatic head secondary to chronic pancreatitis. She will undergo ERCP with evaluation of the distal common bile duct and ampulla. We will do this on 07/21/2024. N.p.o. past midnight on 07/20/2024 (3) Acute upper abdominal pain: PLAN: 68-year-old with history of possible multiple sclerosis. She also has a history of coronary artery disease with stenting to her LAD and angioplasty of her second diagonal in March [address] elevation myocardial infarction.? She was noted to have a left ventricle apical thrombus and cardiomyopathy with an ejection fraction of 25-30%.? This was repeated in June 2016 and the ejection fraction had improved to 40% with no evidence of ventricular thrombus.? She had a stress echo done in August of 2019 this improved to 55%.? Because of continued chest discomfort, She did have a stress test in August 2020 which was negative for ischemia.? She then did continue to complain of chest discomfort she did undergo a diagnostic heart catheterization in September 2020 which demonstrated patent stents. She has unfortunately had multiple visits to the emergency room for chest discomfort as well as elevated blood pressure. She also complained of abdominal discomfort hematemesis and had a GI evaluation. I do not have any records of her GI evaluation at that time. On October 27, 2021 she was admitted to [facility] for hypertensive emergency, right-sided abdominal pain. Patient did have a mildly elevated troponin. Echocardiogram demonstrated an ejection fraction of 48%, grade 1 diastolic dysfunction, small LV apical transmural thrombus noted. Left atrial cavity is moderately dilated. Right atrial cavity dilated. No significant valvular abnormalities noted. Stress test was found to be abnormal. Patient underwent a diagnostic heart catheterization and this was noted to be normal. She has been to our institution 2 times this month. On previous imaging there was possible pancreatic calcifications indicating she may have chronic pancreatitis. She denies any history of alcohol abuse. She does have diarrhea which could be secondary to pancreatic insufficiency. The differential diagnosis for abdominal pain with dilated common bile duct and pancreatic duct would be an ampullary lesion, ampullary stricture, malignancy, complications of chronic pancreatitis. She should undergo MRCP and ERCP for evaluation of her ampulla and distal common bile duct along with pancreatic duct. (4) Diarrhea: PLAN: Differential diagnosis for her diarrhea does include infectious colitis, IBS with diarrhea, pancreatic insufficiency. Recommend stool studies for enteric pathogens, C. difficile, white blood cells, lactoferrin and fecal elastase. PLAN: Plan 07/20/2024-patient's autoimmune labs are pending. She is for ERCP tomorrow. N.p.o. past midnight. Visit Charges Inpatient E&M: 91562 [facility] Hosp L3
[2024-07-20 20:40] VITALS: BP 165/75; PULSE 61; RESP 18; TEMP 36.6; O2SAT 96
[2024-07-20] MEDS: Atorvastatin Calcium 40 MG Tablet PO (20:48)
[2024-07-20] MEDS: Losartan Potassium 50 MG Tablet PO (20:48)
[2024-07-20] MEDS: MELATONIN 3 MG TABLET PO (20:49)
[2024-07-20] MEDS: QUEtiapine 25 MG Tablet PO (20:49)
[2024-07-20] MEDS: QUEtiapine 100 MG Tablet PO (20:50)
[2024-07-20] MEDS: Pramipexole Di-HCl 1 MG Tablet PO (20:50)
[2024-07-20 22:22] LABS: Bedside Glucose 149 mg/dL (74-106)
[2024-07-21] VITALS (12 sets, daily range): BP systolic 122–181; BP diastolic 51–89; PULSE 57–99; RESP 16–18; TEMP 36.4–36.7; O2SAT 92–98; BMI 30.4
[2024-07-21 04:12] LABS: Absolute Lymphocyte Count 1.64 X10^3/uL (0.83-4.51); Absolute Neutrophil Count 4.8 X10^3/uL (2.0-7.7); Basophil# 0.06 X10^3/uL; Basophil% 0.8 % (0-1); Eosinophil# 0.24 X10^3/uL; Eosinophils% 3.1 % (0-5); Hemoglobin 11.6 g/dL (12.0-15.0); Lymphocyte # 1.64 X10^3/ul (0.83-4.51); Lymphocyte % 21.2 % (19-41); Mean Corp Hgb Conc 32.2 g/dL (32-36); Mean Corpuscular Hgb 29.4 pg (27.0-32.0); Mean Corpuscular Volume 91.1 fL (81-99); Mean Platelet Vol. 9.4 fl (6.2-12.0); Monocyte# 0.98 X10^3/uL; Monocyte% 12.7 % (0-10); NRBC Flagged by Analyzer 0 % (0-5); Neutrophil # 4.77 X10^3/uL (2.7-7.7); Neutrophil % 61.7 % (47-70); Platelet Count 223 K/mm3 (150-450); RBC Distribution Width CV 15.4 % (11.6-14.6); RBC Distribution Width SD 50.9 fl (35.1-43.9); Red Blood Count 3.95 M/mm3 (4.2-5.4); White Blood Count 7.7 K/mm3 (4.4-11.0)
[2024-07-21] MEDS: 0.9% Saline Lock 10 ML Syringe IV ×2 (04:37→10:26)
[2024-07-21] MEDS: Morphine 2 MG/ML Syringe IV ×4 (04:37→23:09)
[2024-07-21 04:56] LABS: ALB/GLOB Ratio 1.4 RATIO (0.9-2.4); AST(SGOT) 12 U/L (<=31); Alanine Aminotransfer ALT/SGPT < 5 U/L (<=34); Albumin, Serum 3.5 g/dL (3.4-4.8); Alkaline Phosphatase 122 U/L (35-104); Anion Gap 9 (5-15); BUN 16 mg/dL (4-19); BUN/Creat Ratio 22.5 RATIO (10-20); Calcium,Total 10.1 mg/dL (7.6-11.0); Carbon Dioxide 26.1 mmol/L (21.0-32.0); Chloride 102 mmol/L (98-108); Creatinine, Serum 0.72 mg/dL (0.70-1.20); EST Glomerular Filtration Rate 91 (>60); Estimated Creatinine Clearance 62.89 ml/min (50-250); Globulin 2.5 g/dL (2.2-4.2); Glucose 167 mg/dL (70-99); Potassium 3.8 mmol/L (3.3-5.1); Sodium Level 137 mmol/L (133-145); Total Bilirubin 0.19 mg/dL (0.00-1.30)
--- NOTE | 2024-07-21 07:28 | PN.HOSP_ITS ---
Reason for Visit Reason for Visit: Diagnoses Other specified diseases of biliary tract (07/18/24) Other specified diseases of pancreas (07/18/24) Upper abdominal pain, unspecified (07/18/24) Diarrhea, unspecified (07/18/24) Subjective Subjective Abdominal pain improved, but still ongoing. Objective Data Objective Data Vital Signs: Vital Signs Temp Pulse Resp BP Pulse Ox O2 Del Method 36.6 C 78 18 129/51 H 92 Room Air 07/21/24 04:26 07/21/24 04:26 07/21/24 04:26 07/21/24 04:26 07/21/24 04:26 07/21/24 04:30 Oxygen Delivery Method Room Air Weight: 74.9 kg Body Mass Index (BMI) 30.2 Intake & Output: Intake and Output for Last 24 Hours 07/19/24 07/20/24 07/21/24 23:59 23:59 23:59 Intake Total 1599.17 / 1599.17 500 / 500 Output Total 200 / 200 Balance 1399.17 / 1399.17 500 / 500 Lab / Micro Data 07/21/24 03:41 07/21/24 03:41 Labs: Laboratory Results - last 24 hr 07/19/24 06:17: VIJAY-1 Antibody <0.2, SS-A/Ro IgG Antibody < 0.2, SS-B/La IgG Antibody < 0.2, Sm (Cano) Antibody <0.2, SPOT CLEANER Antibody <0.2, Scl-70 Scleroderma Ab <0.2, Double Strand DNA Ab <1, Antichromatin Antibodies <0.2, Centromere B Antibody <0.2 07/20/24 11:33: POC Glucose 154 H 07/20/24 16:35: POC Glucose 165 H 07/20/24 20:45: POC Glucose 149 H 07/21/24 03:41: WBC 7.7, RBC 3.95 L, Hgb 11.6 L, Hct 36.0 L, MCV 91.1, MCH 29.4, MCHC 32.2, RDW Std Deviation 50.9 H, RDW Coeff of Yeimi 15.4 H, Plt Count 223, MPV 9.4, Immature Gran % (Auto) 0.500, Neut % (Auto) 61.7, Lymph % (Auto) 21.2, [place] % (Auto) 12.7 H, Eos % (Auto) 3.1, Baso % (Auto) 0.8, Absolute Neuts (auto) 4.8, Absolute Lymphs (auto) 1.64, Nucleated RBC % 0, Sodium 137, Potassium 3.8, Chloride 102, Carbon Dioxide 26.1, Anion Gap 9, BUN 16, Creatinine 0.72, Estim Creat Clear Calc 62.89, Est GFR (MDRD) Non-Af 91, BUN/Creatinine Ratio 22.5 H, G lucose 167 H, Calcium 10.1, Total Bilirubin 0.19, AST 12, ALT < 5, Alkaline Phosphatase 122 H, Total Protein 6.0, Albumin 3.5, Globulin 2.5, Albumin/Globulin Ratio 1.4 Physical Exam Const alert and no apparent distress HEENT head/scalp atraumatic and moist oral mucous membranes Resp normal respiratory effort and no retractions GI non-tender and non-distended Assessment & Plan Assessment/Plan (1) Common bile duct dilatation: PLAN: 7mm on CT, 9mm on US. No choledocholithiasis noted GI consulted. MRCP mild intra and extrahepatic biliary dilation as well as mild pancreatic ductal dilation. GI following ERCP for 07/21 (2) Dilation of pancreatic duct: PLAN: as above. PLAN: Plan Chronic conditions: * frequent UTIs. UA here was negative for infection as well as UCx. Previously on nitrofurantoin. Follow up with Dr. Jessica as outpt * MCI: on donepezil, currently on hold. * reported h/o confusion: may be multifactorial given dementia/MCI plus medications. Currently no issues as pt is appropriate. * Depression/anxiety: quetiapine * RLS: Mirapex. * CAD: on ASA and statin. VTE prophylaxis: SCDs. Charges/Coding Visit Charges Inpatient E&M: 03168 Subs Hosp L2
[2024-07-21] MEDS: Carvedilol 12.5 MG Tablet PO ×2 (07:51→18:57)
[2024-07-21 07:55] LABS: Bedside Glucose 155 mg/dL (74-106)
[2024-07-21] MEDS: Fluorometholone 0.1% Susp 1 DRP DROPS OPHTHALMIC ×2 (10:14→20:44)
[2024-07-21] MEDS: Lidocaine 5% Patch 1 PATCH TOPICAL (10:14)
[2024-07-21] MEDS: Nystatin Powder 15gm Bottle 1 APPLIC TOPICAL ×2 (10:25→20:46)
[2024-07-21 12:37] LABS: Bedside Glucose 145 mg/dL (74-106)
--- NOTE | 2024-07-21 14:50 | NURSING ---
Pt to endo for ERCP
--- NOTE | 2024-07-21 15:04 | CASEMGMT ---
Social Work SW met with pt for emotional support. SW introduced self and SW role to pt. Pt accepting of SW visit. Pt talking openly and life review completed. SW provided active listening and support. Pt does state she had a suicide attempt in 2018 and spent 18 months after that in mental health facilities. Pt states she currently sees Dr. Sultana, psychiatrist every three months and Charlene Medina, counselor at [facility] every three weeks. Pt states she takes an anti depressant which is very helpful. Pt denies and current suicidal ideations and states she has not thought about harming herself since the event in 2018. Pt is able to restate coping techniques which she has learned in counseling. Pt lives at home alone. Pt discussing that she is lonely at home. SW explored options for pt to increase socialization. Pt does have test later today and pt is fearful of diagnosis and outcome. Support provided. SW will remain available for any further needs. Genesis Whiting, WILLIAN
--- NOTE | 2024-07-21 15:36 | PCM.PRE.AN2 ---
ASA Classification* ASA Classification ASA Classification: 3 Assessment & Plan Anesthesia* Anesthesia Assessment Anesthesia Assessment: Discussed sedation and/or anesthesia options, risks, benefits, and alternatives with patient/parents/legal guardian/POA. Questions invited. The patient/parents/legal guardian/POA seems to understand and agrees to proceed with anesthesia plan. Reviewed the physical assessment, medical history, allergy history and patient home medications list prior to surgery/procedure/anesthetic and documented any changes. Performed airway and anesthesia risk assessments. Anesthesia Type Anesthesia Type: General History Source History Obtained from:: Patient and Chart Anesthesia Focused Assessment* Temperature: 97.8 F Pulse Rate: 57 Blood Pressure: 136/54 Respiratory Rate: 16 Pulse Ox: 96 Oxygen Delivery Method: Room Air Airway Assessment Mouth opens: >3 cm Mallampati Score: I Teeth Condition: Missing (Patient is edentulous.) Neck Range of motion (ROM): Limited ROM (Somewhat decreased due 4 fused vertebrae.) Focused Labs Anesthesia Preop lab: CBC WBC 7.7 K/mm3 (4.4-11.0) 07/21/24 03:41 07/21/24 RBC 3.95 M/mm3 (4.2-5.4) L 07/21/24 03:41 07/21/24 Hgb 11.6 g/dL (12.0-15.0) L 07/21/24 03:41 07/21/24 Hct 36.0 % (37-47) L 07/21/24 03:41 07/21/24 Plt Count 223 K/mm3 (150-450) 07/21/24 03:41 07/21/24 CHEMISTRY Potassium 3.8 mmol/L (3.3-5.1) 07/21/24 03:41 07/21/24 Sodium 137 mmol/L (133-145) 07/21/24 03:41 07/21/24 Magnesium 2.0 mg/dL (1.6-2.6) 04/28/22 18:50 04/28/22 Phosphorus 2.2 mg/dL (2.5-4.9) L 04/14/18 22:30 04/14/18 BUN 16 mg/dL (4-19) 07/21/24 03:41 07/21/24 Creatinine 0.72 mg/dL (0.70-1.20) 07/21/24 03:41 07/21/24 Glucose 167 mg/dL (70-99) H 07/21/24 03:41 07/21/24 POC Glucose 145 mg/dL (74-106) H 07/21/24 12:18 07/21/24 TSH 1.440 uIU/mL (0.300-4.200) 07/19/24 06:17 07/19/24 COAG PT 14.1 SECONDS (11.7-14.9) 10/22/23 11:44 10/22/23 Urine Test Negative Negative 03/03/18 14:25 03/03/18 Pre-Assessment Diagnosis/Proposed Procedure Planned Operative Procedure(s): Endoscopic retrograde cholangiopancreatography Anesthesia History Anesthesia History - scientologist: Anesthesia History - scientologist Hx Hospitalization Yes: CHEST PAIN JUNE 2020 08/14/20 18:17 Any Problems With Anesthesia No 07/21/24 13:53 Cholinesterase deficiency No 07/21/24 13:53 You/Your Family Experience No 07/21/24 13:53 fever (hyperthermia) with Relationship Recent Exposure to Contagious No 07/21/24 13:53 Disease Does patient have nerve No 07/21/24 13:53 stimulator Patient instructed to have No 07/19/24 02:58 device shut off --Does patient have Pacemaker No 07/21/24 13:55 or ICD? When Was Last Pacemaker Check QUESTION #4 FULL TEXT: You/Your Family Experience fever (hyperthermia) with Anesthesia Last Oral Intake Last Oral intake: Last Oral Intake NPO since 00:00 07/21/24 13:55 Meds taken in AM with sips of Yes 07/21/24 13:55 water? Meds patient instructed to coreg 07/21/24 13:55 take am of surgery Any additional information?: Yes Meds taken in AM with sips of water?: Yes PONV PONV - scientologist: PONV - scientologist Female HX of Motion Sickness HX of N/V After Surgery Non-Smoker Duration of Surgery greater than 60 minutes Number of Risk Factors PONV Score Height & Weight Height & Weight: Anesthesia: Height & Weight Height 5 ft 1.81 in 07/21/24 13:55 Weight: 74.9 kg 07/21/24 13:55 Body Mass Index (BMI) 30.4 07/21/24 13:55 Respiratory Assessment Respiratory Assessment - scientologist: Respiratory Tract Infection Hx - scientologist Hx Respiratory Tract Infection No 07/21/24 13:53 STOP Sleep Apnea STOP Sleep Apnea - scientologist: STOP Sleep Apnea - scientologist Hx Hypertension Yes 07/18/24 19:43 Hx Sleep Apnea No 07/18/24 19:43 CPAP No 06/06/22 16:26 BIPAP Yes: doesn't have to wear 06/06/22 16:26 bipap anymore Do you snore loudly (louder No 07/18/24 19:43 than talking or can be heard Do you often feel tired/ No 07/18/24 19:43 fatigued/ sleepy during daytime? Has anyone observed you stop No 07/18/24 19:43 breathing during sleep? STOP Results Negative 07/18/24 19:43 QUESTION #5 FULL TEXT : Do you snore loudly (louder than talking or can be heard through closed doors)? Tobacco Use History Tobacco Use History - scientologist: Tobacco Use History - scientologist Tobacco Use Cigarettes 08/30/20 20:38 Smoking Status Current every day smoker 07/20/24 10:22 Hx Tobacco Use Yes 07/18/24 19:43 Years Smoking Packs Smoked per Day Smoking Cessation Date was within the last 15 years Hx Smoking Cessation Date Hx Smoking Cessation No 07/18/24 19:43 Counseling Hematologic Medial History Hematologic Hx - scientologist: Hematologic Medical Hx - hair spinner Hx of Blood Transfusion No 07/18/24 19:43 Hx of Transfusion in last 3 No 07/18/24 19:43 Months Date of Last Transfusion (if within last 3 months) Ever experience any problems No 07/18/24 19:43 with transfusion(s)? Specify any problems Hx of Preganancy in last 3 N/A 07/18/24 19:43 Months Nurse Filling Out Transfusion CSIGNORIN 07/18/24 19:43 & Questions: Date: 07/18/24 07/18/24 19:43 Time: 19:45 07/18/24 19:43 Patient unable to answer at this time (ie. confused, unrespo /Reproduction History /Reproductive History - scientologist: /Reproductive Hx- scientologist Hx Now No 07/21/24 13:53 Gestational Age (in weeks): EDC: Hx Hx Para Hx Section SAB No 07/21/24 13:53 Active Medications Active Medications: Current Medications Generic Name Dose Route Start Last Admin Trade Name Freq PRN Reason Stop Dose Admin Acetaminophen 650 mg 07/18/24 20:10 07/20/24 16:38 Acetaminophen 325 Mg Tablet PO 650 mg Q6H PRN PRN Administration Pain 1-10 Or Fever >100.7 Albuterol Sulfate 2.5 mg 07/18/24 20:10 Albuterol 2.5 Mg/3 Ml Vial.Neb. INHALATION Q2H PRN PRN SOB &/OR WHEEZING Aspirin 81 mg 07/19/24 08:00 07/20/24 09:30 Aspirin E.C. 81 Mg Tablet PO 81 mg BREAKFAST RANDI Administration Atorvastatin Calcium 40 mg 07/18/24 22:00 07/20/24 20:48 Atorvastatin Calcium 40 Mg Tablet PO 40 mg QHS RANDI Administration Carvedilol 12.5 mg 07/19/24 08:00 07/21/24 07:51 Carvedilol 12.5 Mg Tablet PO 12.5 mg BIDCM RANDI Administration Protocol Dicyclomine HCl 20 mg 07/18/24 22:00 07/20/24 20:46 Dicyclomine 10 Mg Capsule PO 20 mg BID RANDI Administration Donepezil HCl 20 mg 07/20/24 12:00 07/20/24 15:23 Donepezil Hcl 10 Mg Tablet PO 20 mg 1200 RANDI Administration Duloxetine HCl 30 mg 07/18/24 22:00 07/20/24 20:47 Duloxetine Hcl 30 Mg Capsule PO 30 mg BID RANDI Administration Ferrous Sulfate 325 mg 07/19/24 12:00 07/20/24 15:23 Ferrous Sulfate 325 Mg Tablet PO 325 mg DAILY@1200 RANDI Administration Fluorometholone 1 drp 07/18/24 22:00 07/21/24 10:14 Fluorometholone 0.1% Susp 1 Drp Drops OPHTHALMIC 1 drp BID RANDI Administration Glucagon 1 mg 07/18/24 20:04 Glucagon 1 Mg/Ml Syringe IM X1 PRN HYPOGLYCEMIA Protocol Hydroxyzine Pamoate 50 mg 07/20/24 10:00 07/20/24 20:59 Hydroxyzine [place] 25 Mg Capsule PO 50 mg BID RANDI Administration Hydroxyzine Pamoate 50 mg 07/20/24 11:02 Hydroxyzine [place] 25 Mg Capsule PO BID PRN PRN ITCHING Sodium Chloride 100 mls @ 15 mls/hr 07/18/24 19:09 IV .Q6H40M PRN Additional IVPB Infusion Sodium Chloride 100 mls @ 15 mls/hr 07/18/24 19:09 IV .Q6H40M PRN Saline Flush Dextrose 250 mls @ 0 mls/hr 07/18/24 20:04 Dextrose 10%-Water IV .Q0M PRN HYPOGLYCEMIA Protocol As Directed Insulin Human Lispro 0 unit 07/18/24 22:00 07/21/24 13:04 Insulin Lispro 100 Unit/Ml Insuln.Pen SC Not Given ACHS [facility] Protocol Isosorbide Mononitrate 30 mg 07/18/24 22:00 07/20/24 20:48 Isosorbide Mononitrate 30 Mg Tablet PO 30 mg BID [facility] Administration Protocol Lidocaine 1 patch 07/20/24 10:00 07/21/24 10:14 Lidocaine 5% Patch TOPICAL 1 patch DAILY [facility] Administration Protocol Losartan Potassium 50 mg 07/20/24 22:00 07/20/24 20:48 Losartan Potassium 50 Mg Tablet PO 50 mg BID [facility] Administration Protocol Melatonin 3 mg 07/18/24 20:10 07/20/24 20:49 Melatonin 3 Mg Tablet PO 3 mg QHS PRN PRN Administration INSOMNIA Modafinil 200 mg 07/19/24 10:00 07/20/24 10:50 Modafinil 200 Mg Tablet PO 200 mg DAILY RANDI Administration Morphine Sulfate 2 mg 07/19/24 09:44 07/21/24 10:26 Morphine 2 Mg/Ml Syringe IV 2 mg Q4H PRN PRN Administration Pain Score 6-10 Nitrofurantoin Macrocrystals 100 mg 07/19/24 08:00 07/20/24 16:37 Nitrofurantoin Macrocrystals 100 Mg Capsule PO 100 mg BIDCM [facility] Administration Nitroglycerin 0.4 mg 07/20/24 11:04 Nitroglycerin (Inpatient Use) 0.4 Mg Tab.Subl SL Q5M PRN CARDIAC/CHEST PAIN Nystatin 1 applic 07/18/24 22:00 07/21/24 10:25 Nystatin Powder 15gm Bottle TOPICAL 1 applic BID [facility] Administration Protocol Ondansetron HCl 4 mg 07/18/24 20:10 07/20/24 20:46 Ondansetron 4 Mg/2 Ml Vial IV 4 mg Q8H PRN PRN Administration NAUSEA/VOMITING Oxycodone HCl 5 mg 07/19/24 09:44 07/20/24 20:46 Oxycodone 5 Mg Tablet PO 5 mg Q4H PRN PRN Administration Pain Score 6-10 Pantoprazole Sodium 40 mg 07/19/24 10:00 07/20/24 09:30 Pantoprazole Sodium 40 Mg Tablet PO 40 mg DAILY RANDI Administration Pramipexole Dihydrochloride 0.5 mg 07/19/24 10:00 07/20/24 09:30 Pramipexole Di-Hcl 0.5 Mg Tablet PO 0.5 mg DAILY RANDI Administration Pramipexole Dihydrochloride 1 mg 07/18/24 22:00 07/20/24 20:50 Pramipexole Di-Hcl 1 Mg Tablet PO 1 mg QHS RANDI Administration Quetiapine Fumarate 100 mg 07/18/24 22:00 07/20/24 20:50 Quetiapine 100 Mg Tablet PO 100 mg QHS RANDI Administration Protocol Quetiapine Fumarate 25 mg 07/18/24 22:00 07/20/24 20:49 Quetiapine 25 Mg Tablet PO 25 mg QHS RANDI Administration Protocol Senna/Docusate Sodium 2 tablet 07/18/24 20:10 Senna/Docusate Sodium 1 Tablet PO BID PRN PRN Constipation Sodium Chloride 10 - 40 ml 07/18/24 19:09 07/21/24 10:26 0.9% Saline Lock 10 Ml Syringe IV 10 ml UD PRN Administration SALINE FLUSH Sucralfate 1 gm 07/18/24 22:00 07/21/24 04:33 Sucralfate 1 Gm Tablet PO Not Given 1HR_ACHS RANDI PFSH Medical History Dermatitis Vitamin deficiency Fatigue Headache Closed injury of head Insomnia CKD (chronic kidney disease) stage 3, GFR 30-59 ml/min Anxiety and depression Cataracts, both eyes Osteoporosis Type 2 diabetes mellitus Chronic neck pain with history of cervical spinal surgery Anemia Mural thrombus of heart Hiatal hernia History of peptic ulcer disease Essential (primary) hypertension History of ST elevation myocardial infarction (STEMI) BRYAN (obstructive sleep apnea) Multiple sclerosis Cervical spinal stenosis IBS (irritable bowel syndrome) RLS (restless legs syndrome) Takotsubo syndrome Atherosclerotic heart disease of [place] coronary artery without angina pectoris Paroxysmal atrial fibrillation Left ventricular hypertrophy Nicotine abuse Chronic systolic (congestive) heart failure Ischemic cardiomyopathy Diabetes mellitus type 2 in nonobese Apical mural thrombus with acute [place] Vitamin B12 deficiency Irritable bowel syndrome with diarrhea COPD (chronic obstructive pulmonary disease) Home Medications ?Medication ?Instructions ?Recorded ?Last Taken ?Type modafinil 200 mg tablet 200 mg PO DAILY to stay awake 12/12/19 07/18/24 History acetaminophen 500 mg tablet 1,000 mg (2 x 500 mg) PO TID PRN 07/29/20 07/18/24 Rx pain -02/03 #1 TAB cholecalciferol (vitamin D3) 125 125 mcg PO DAILY supplement 11/05/21 07/18/24 History mcg (5,000 unit) capsule ferrous sulfate 325 mg (65 mg 325 mg PO DAILY supplement 11/05/21 07/18/24 History iron) tablet aspirin 81 mg tablet,delayed 81 mg PO DAILY heart health 04/01/22 07/18/24 History release (Adult Aspirin Regimen) ascorbic acid (vitamin C) 500 mg 500 mg PO DAILY supplement 06/06/22 07/17/24 History chewable tablet atorvastatin 40 mg tablet 40 mg PO QHS cholesterol 06/06/22 07/17/24 History denosumab 60 mg/mL subcutaneous 60 mg subcut [id number] bone health 06/06/22 01/22/24 History syringe (Prolia) albuterol sulfate 2.5 mg/3 mL 2.5 mg (3 mL) inhalation Q8H PRN 07/21/22 Unknown Rx (0.083 %) solution for nebulization Dyspnea, wheezing #180 mL blood sugar diagnostic (Accu-Chek #100 ea 07/29/22 Unknown Rx Ada Plus test strips) pantoprazole 40 mg tablet,delayed 40 mg PO DAILY gerd #90 tabs 09/04/22 07/18/24 Rx release donepezil 10 mg tablet 20 mg PO DAILY 09/11/22 07/18/24 History insulin lispro 100 unit/mL 1 sliding scale dose subcut QAC 09/11/22 07/12/24 History subcutaneous pen nitroglycerin 0.4 mg sublingual 0.4 mg sublingual Q5-15M #25 tabs 09/11/22 Unknown Rx tablet hydrocortisone 2.5 % topical cream 1 applic topical BID PRN skin 09/12/22 Unknown Rx irritation #454 grams albuterol sulfate 90 mcg/actuation 2 puff inhalation Q6H PRN 10/29/22 07/18/24 Rx aerosol inhaler shortness of breath or wheezing #8.5 grams hydroxyzine HCl 50 mg tablet See Rx Instructions .Route 11/21/22 07/18/24 Rx .COMPLEX #60 tabs vibegron 75 mg tablet (Gemtesa) 75 mg PO DAILY 01/30/23 07/17/24 History isosorbide mononitrate 30 mg 30 mg PO BID heart #180 tabs 06/22/23 07/18/24 Rx tablet,extended release 24 hr lidocaine 5 % topical patch 1 patch topical DAILY 06/22/23 07/15/24 History (Lidoderm) oxycodone 5 mg capsule 5 mg PO DAILY PRN pain 06/22/23 Unknown History apixaban 5 mg tablet (Eliquis) 5 mg PO BID #180 tabs 10/02/23 07/18/24 Rx carvedilol 12.5 mg tablet 12.5 mg PO BID this is a dose 11/23/23 07/21/24 Rx increase #180 tabs losartan 50 mg tablet 50 mg PO BID #180 tabs 12/14/23 07/17/24 Rx ropinirole 2 mg tablet 2 mg PO QHS restless leg 03/01/24 07/17/24 History sucralfate 1 gram tablet 1 g PO 4X/DAY reflux 03/01/24 07/18/24 History duloxetine 30 mg capsule,delayed 30 mg PO BID mental health #180 05/03/24 07/18/24 Rx release (Cymbalta) caps ramelteon 8 mg tablet 8 mg PO QHS PRN sleep #90 tabs 05/03/24 07/17/24 Rx ropinirole 1 mg tablet 1 mg PO QDAY 05/03/24 07/18/24 History dicyclomine 20 mg tablet 20 mg PO BID 07/10/24 07/18/24 History fluorometholone 0.1 % eye 1 drp ophthalmic (eye) BID 07/10/24 07/18/24 History drops,suspension ondansetron HCl 4 mg tablet 4 mg PO Q8H PRN nausea and vomiting 07/10/24 07/18/24 History quetiapine 25 mg tablet 25 mg PO QHS #90 tabs 07/12/24 07/17/24 Rx clotrimazole-betamethasone 1 1 applic topical BID 07/18/24 07/17/24 History %-0.05 % topical cream nitrofurantoin 1 cap PO BID 07/18/24 07/18/24 History monohydrate/macrocrystals 100 mg capsule nystatin 100,000 unit/gram topical 1 applic topical BID 07/18/24 07/18/24 History powder (Nystop) quetiapine 100 mg tablet See Rx Instructions .Route .COMPLEX 07/18/24 07/17/24 History tirzepatide 10 mg/0.5 mL 10 mg subcut QWEEK 07/18/24 07/12/24 History subcutaneous pen injector (Aston) tizanidine 2 mg tablet 2 - 4 mg PO QHS PRN pain 07/18/24 07/17/24 History tizanidine 2 mg tablet 2 mg PO DAILY PRN pain 07/18/24 07/18/24 History Allergy/AdvReac Type Severity Reaction Status Date / Time vancomycin Allergy Severe Anaphylaxis Verified 07/21/24 15:11 indomethacin (From Indocin) Allergy Hives Verified 07/21/24 15:11 indomethacin sodium (From Allergy Hives Verified 07/21/24 15:11 Indocin) iodine Allergy Hives Verified 07/21/24 15:11 propoxyphene napsylate (From Allergy Out of Verified 07/21/24 15:11 Darvocet-N) control trazodone AdvReac Intermediate Other Verified 07/21/24 15:11 aripiprazole (From Abilify) AdvReac Other Verified 07/21/24 15:11 aspirin AdvReac Upset Verified 07/21/24 15:11 Stomach clindamycin AdvReac Nausea Verified 07/21/24 15:11 metformin AdvReac Other Verified 07/21/24 15:11 sumatriptan (From Imitrex) AdvReac Vomiting Verified 07/21/24 15:11 Family History Father Cancer Lung cancer Mother Cancer Pancreatic cancer Surgical History Hx of lumbosacral spine surgery Hx of bilateral cataract extraction (~03/2022) History of endoscopy History of left heart catheterization (09/25/20) History of loop recorder (06/2014) History of amputation of left great toe History of left knee surgery History of tonsillectomy and adenoidectomy History of back surgery History of cervical discectomy History of coronary artery stent placement (04/08/16) Social History household members: none housing: house Smoking Status: Current every day smoker tobacco type: cigarettes alcohol intake: never substance use type: does not use caffeine: Yes Type: coffee Number of servings: 1 what type of physical activity do you participate in: none and other details: Physical Therapy Review of Systems (Anesthesia) ROS Narrative System reviewed and no additional complaints, except as documented.
--- NOTE | 2024-07-21 16:00 | FLU_PTH ---
PATIENT: ELO HERNANDEZ LOC: [facility]3 U#:[id number] AGE/SX: 68/F ROOM: PA316 RE07/22/[address]: Dr. Yg Moreland DO : 1955 BED: 1 DIS: 07/24/2024 SPEC #: [id number] RECD: 07/21/24 19:33 STATUS: IAM REQ #: [id number] ADI: 07/21/24 16:[address]: Fabrice Jean DEPT: CYTOLOGY RECD BY: Sukhjinder Sprague ENTERED: 07/22/24 09:21 SP TYPE: Fluid OTHR DR: DO Dr. Florence Lyons MD Mark Yoder, EMERGENCY CARE ATTENDANT-C Tissues: A - Bile duct, NOS Procedures: Special Stain Group II Surgery Specimen Level III Surgery Specimen Level IV Cytospin Fluid Comments: @ Ordering doctor for SSII edited from to @ by LORA at 07/22/24 09 @ Ordering doctor for SUIII edited from to @ by LORA at 07/22/24923 @ Ordering doctor for SUIV edited from to @ by LORA at 07/22/24 09 @ Ordering doctor for CYSPIN edited from to @ by LORA at 07/22/24 09 @ Submitting doctor edited from to @ by LORA at 07/22/2424 HEADER OPERATION: ERCP with brushings, balloon sweep, and stent placement PRE-OP DIAGNOSIS: Dilation of pancreatic duct, common bile duct dilatation TISSUE SUBMITTED: A- Distal common bile duct brushings DIAGNOSIS CYTOLOGY A. Distal common bile duct, brushings: * Rare atypical cells. COMMENT The slides were reviewed in intradepartmental consultation by Dr Vitor Rodgers ([facility]). CYTOLOGY STUDY Slides are reviewed. CYTOLOGY GROSS A. Received is one brush tip with 0.5 ml of colorless fluid and 3 slides labeled with the patient's name and and designated per the requisition as Distal common bile duct brushings. Submitted for cytology preparation (cytospin x1, cellblock x1, pap stained slide x3). Mr 07/22/2024 CPT: 12886
--- NOTE | 2024-07-21 16:33 | PCM.PN.BLA ---
Progress Note Patient has been NPO for ERCP today. Physical Exam Const alert and no apparent distress HEENT head/scalp atraumatic and moist oral mucous membranes Resp normal respiratory effort and no retractions GI non-tender and non-distended Assessment & Plan Assessment/Plan (1) Dilation of pancreatic duct: (2) Common bile duct dilatation: PLAN: She underwent MRCP : FINDINGS: Lung bases: Trace bilateral pleural effusions are present.. Liver: Unremarkable. Gallbladder and bile ducts: Mild intra and extrahepatic biliary dilatation is present with the common bile duct measuring 9.5 mm. No obstructing lesion or choledocholithiasis is identified. The gallbladder is unremarkable. Spleen: Unremarkable. Pancreas: The main pancreatic duct is dilated measuring 6 mm in diameter at the pancreatic head, as seen on the previous exam. No obstructing lesion or filling defect is identified. Adrenals: Unremarkable. Kidneys and ureters: Unremarkable. Bowel: Unremarkable. Lymph nodes: Unremarkable. Peritoneum: Unremarkable. Vessels: Unremarkable. Retroperitoneum: Unremarkable. Abdominal wall: Unremarkable. Bones: Moderate multilevel degenerative changes are present with a S shaped scoliosis in the thoracolumbar spine.. MRI/MRCP Abdomen without Contrast IMPRESSION: 1. Mild intra and extrahepatic biliary dilatation as well as mild pancreatic ductal dilatation. No obstructing etiology is identified. Correlation with laboratory values is recommended. ERCP can be considered if clinically appropriate. 2. Trace bilateral pleural effusions. Differential diagnosis for this abnormality would be an ampullary lesion, biliary stricture, stricture involving the pancreatic head secondary to chronic pancreatitis. She will undergo ERCP with evaluation of the distal common bile duct and ampulla. We will do this on 07/21/2024. N.p.o. past midnight on 07/20/2024 (3) Acute upper abdominal pain: PLAN: 68-year-old with history of possible multiple sclerosis. She also has a history of coronary artery disease with stenting to her LAD and angioplasty of her second diagonal in March [address] elevation myocardial infarction.? She was noted to have a left ventricle apical thrombus and cardiomyopathy with an ejection fraction of 25-30%.? This was repeated in June 2016 and the ejection fraction had improved to 40% with no evidence of ventricular thrombus.? She had a stress echo done in August of 2019 this improved to 55%.? Because of continued chest discomfort, She did have a stress test in August 2020 which was negative for ischemia.? She then did continue to complain of chest discomfort she did undergo a diagnostic heart catheterization in September 2020 which demonstrated patent stents. She has unfortunately had multiple visits to the emergency room for chest discomfort as well as elevated blood pressure. She also complained of abdominal discomfort hematemesis and had a GI evaluation. I do not have any records of her GI evaluation at that time. On October 27, 2021 she was admitted to [facility] for hypertensive emergency, right-sided abdominal pain. Patient did have a mildly elevated troponin. Echocardiogram demonstrated an ejection fraction of 48%, grade 1 diastolic dysfunction, small LV apical transmural thrombus noted. Left atrial cavity is moderately dilated. Right atrial cavity dilated. No significant valvular abnormalities noted. Stress test was found to be abnormal. Patient underwent a diagnostic heart catheterization and this was noted to be normal. She has been to our institution 2 times this month. On previous imaging there was possible pancreatic calcifications indicating she may have chronic pancreatitis. She denies any history of alcohol abuse. She does have diarrhea which could be secondary to pancreatic insufficiency. The differential diagnosis for abdominal pain with dilated common bile duct and pancreatic duct would be an ampullary lesion, ampullary stricture, malignancy, complications of chronic pancreatitis. She should undergo MRCP and ERCP for evaluation of her ampulla and distal common bile duct along with pancreatic duct. (4) Diarrhea: PLAN: Differential diagnosis for her diarrhea does include infectious colitis, IBS with diarrhea, pancreatic insufficiency. Recommend stool studies for enteric pathogens, C. difficile, white blood cells, lactoferrin and fecal elastase. PLAN: Plan 07/20/2024-patient's autoimmune labs are pending. She is for ERCP tomorrow. N.p.o. past midnight. 07/21/2024- Further recommendations after ERCP Visit Charges Inpatient E&M: [id number] [facility] L[facility]
--- NOTE | 2024-07-21 16:50 | RAD_ITS ---
EXAM: Imaging from ERCP. CLINICAL HISTORY: Abdominal pain. COMPARISON: MRI abdomen dated 07/14/2024. TECHNIQUE: Limited intra procedural imaging from an ERCP procedure. FINDINGS: Limited examination were provided from an ERCP procedure. Please see fully dictated note by the platform consultant. There appears to be prominent right and left-sided bile ducts. Imaging of the common bile duct is not optimal on this examination. Please see note from the GI physician. RAD/ERCP Biliary/Pancreas IMPRESSION: Limited examination. As above. Reading Location: [id number]
--- NOTE | 2024-07-21 17:39 | OP.ERCP_ITS ---
Patient Name: Marisol Gray Procedure Date: 07/21/2024 3:53 PM Date of : 1955 Age: 68 Procedure: ERCP Indications: Common bile duct stone(s), Abdominal pain of suspected biliary origin, Abnormal MRCP, Elevated liver enzymes, Diagnostic sampling, Weight loss Providers: Fabrice Jean DO Medicines: Monitored Anesthesia Care Patient Profile: This is a 68 year old female. Refer to note in patient chart for documentation of history and physical. Patient has symptoms of acute abdominal cramping, acute right upper quadrant abdominal pain, chronic dyspepsia and acute nausea. This patient has no history of previous ERCP. Complications: No immediate complications. Procedure: Pre-Anesthesia Assessment: - Prior to the procedure, a History and Physical was performed, and patient medications and allergies were reviewed. The patient is competent. The risks and benefits of the procedure and the sedation options and risks were discussed with the patient. All questions were answered and informed consent was obtained. Patient identification and proposed procedure were verified by the physician in the pre-procedure area. Mental Status Examination: alert and oriented. Airway Examination: normal oropharyngeal airway and neck mobility. Respiratory Examination: clear to auscultation. CV Examination: normal. ASA Grade Assessment: II - A patient with mild systemic disease. After reviewing the risks and benefits, the patient was deemed in satisfactory condition to undergo the procedure. The anesthesia plan was to use monitored anesthesia care (MAC). Immediately prior to administration of medications, the patient was re-assessed for adequacy to receive sedatives. The heart rate, respiratory rate, oxygen saturations, blood pressure, adequacy of pulmonary ventilation, and response to care were monitored throughout the procedure. The physical status of the patient was re-assessed after the procedure. After obtaining informed consent, the scope was passed under direct vision. Throughout the procedure, the patient's blood pressure, pulse, and oxygen saturations were monitored continuously. The Duodenoscope was introduced through the mouth, and advanced to the duodenum and used to inject contrast into the bile duct. The ERCP was accomplished without difficulty. The patient tolerated the procedure well. Scope In: 4:57:02 PM Scope Out: 5:29:45 PM Total Procedure Duration Time 0 hours 32 minutes 43 seconds Findings: The ambulance mechanic film was normal. The esophagus was successfully intubated under direct vision. The scope was advanced to a normal major papilla in the descending duodenum without detailed examination of the pharynx, larynx and associated structures, and upper GI tract. The upper GI tract was grossly normal. A long 0.025 inch Jagwire was passed into the biliary tree. The short-nosed traction sphincterotome was passed over the guidewire and the bile duct was then deeply cannulated. Contrast was injected. I personally interpreted the bile duct images. Ductal flow of contrast was adequate. Image quality was adequate. Contrast extended to the main bile duct. Contrast extended to the bifurcation. Contrast extended to the hepatic ducts. Contrast extended to the entire biliary tree. Opacification of the entire biliary tree except for the cystic duct and gallbladder, entire biliary tree except for the gallbladder and entire biliary tree was successful. The maximum diameter of the ducts was 12 mm. The lower third of the main bile duct contained a single localized stenosis 6 mm in length. The entire biliary tree was diffusely dilated, uncertain etiology. The largest diameter was 12 mm. A 5 mm biliary sphincterotomy was made with a braided traction (standard) sphincterotome using ERBE electrocautery. There was no post-sphincterotomy bleeding. The biliary tree was swept with a 12 mm balloon starting at the upper third of the main bile duct, middle third of the main bile duct, lower third of the main duct, bifurcation, left intrahepatic duct(s), left main hepatic duct, right intrahepatic duct(s) and right main hepatic duct. Sludge was swept from the duct. All stones were removed. Cells for cytology were obtained by brushing in the lower third of the main bile duct and the left main hepatic duct. One 10 Fr by 5 cm temporary stent was placed 5 cm into the common bile duct. Bile flowed through the stent. The stent was in good position. Impression: - A single localized biliary stricture was found in the lower third of the main bile duct. The stricture was indeterminate. - The entire biliary tree was dilated, uncertain etiology. - Choledocholithiasis was found. Complete removal was accomplished by biliary sphincterotomy and balloon extraction. - A biliary sphincterotomy was performed. - The biliary tree was swept. - Cells for cytology obtained in the lower third of the main duct and in the left main hepatic duct. - One temporary stent was placed into the common bile duct. Procedure Code(s): --- Professional --- 05652, Endoscopic retrograde cholangiopancreatography (ERCP); with placement of endoscopic stent into biliary or pancreatic duct, including pre- and post-dilation and guide wire passage, when performed, including sphincterotomy, when performed, each stent 15607, Endoscopic retrograde cholangiopancreatography (ERCP); with removal of calculi/debris from biliary/pancreatic duct(s) 55692, 26, Endoscopic catheterization of the biliary ductal system, radiological supervision and interpretation CPT copyright 2021 [employer]. All rights reserved. The codes documented in this report are preliminary and upon child caregiver private home review may be revised to meet current compliance requirements. Fabrice Jean DO 07/21/2024 5:38:42 PM This report has been signed electronically. Number of Addenda: 0 Note Initiated On: 07/21/2024 3:53 PM
--- NOTE | 2024-07-21 17:57 | PCM.POST.ANE ---
Anesthesia: Postop Eval I Current Vital Signs Temperature: 97.7 F Pulse Rate: 97 Blood Pressure: 122/59 Respiratory Rate: 16 Pulse Ox: 95 Oxygen Delivery Method: Room Air Assessment Airway patent: Yes Spontaneous unlabored respirations: Yes Mental status: Awake and Calm nausea: No Vomiting: No Anesthesia Complication: No Fluid Hydration Crystalloid volume administer (ml): 500 Total IV fluid infused: 500 Progress Note Anesthesia document: Postop Eval 1 completed: Yes
[2024-07-21] MEDS: Aspirin E.C. 81 MG Tablet PO (18:50)
[2024-07-21] MEDS: Nitrofurantoin Macrocrystals 100 MG Capsule PO (18:51)
[2024-07-21] MEDS: Dicyclomine 10 MG Capsule 20 MG PO (18:51)
[2024-07-21] MEDS: DULoxetine Hcl 30 MG Capsule PO (18:52)
[2024-07-21] MEDS: Losartan Potassium 50 MG Tablet PO (18:52)
[2024-07-21] MEDS: Isosorbide Mononitrate 30 MG Tablet PO (18:53)
[2024-07-21] MEDS: Vibegron 75 MG TABLET PO (18:53)
[2024-07-21] MEDS: Pramipexole Di-HCl 0.5 MG Tablet PO (18:54)
[2024-07-21] MEDS: Donepezil HCl 10 MG Tablet 20 MG PO (18:55)
[2024-07-21] MEDS: Sucralfate 1 GM Tablet PO ×2 (18:55→20:47)
[2024-07-21] MEDS: Ferrous Sulfate 325 MG Tablet PO (18:56)
[2024-07-21] MEDS: Pantoprazole Sodium 40 MG Tablet PO (18:57)
[2024-07-21] MEDS: hydrOXYzine PAM 25 MG Capsule 50 MG PO ×2 (19:05→20:54)
[2024-07-21] MEDS: Ondansetron 4 MG/2 ML Vial IV (20:43)
[2024-07-21] MEDS: MELATONIN 3 MG TABLET PO (20:46)
[2024-07-21] MEDS: QUEtiapine 100 MG Tablet PO (20:46)
[2024-07-21] MEDS: Atorvastatin Calcium 40 MG Tablet PO (20:46)
[2024-07-21] MEDS: QUEtiapine 25 MG Tablet PO (20:46)
[2024-07-21] MEDS: Acetaminophen 325 MG Tablet 650 MG PO (20:46)
[2024-07-21] MEDS: oxyCODONE 5 MG Tablet PO (20:47)
[2024-07-21] MEDS: Pramipexole Di-HCl 1 MG Tablet PO (20:47)
[2024-07-21] MEDS: Insulin Lispro 100 UNIT/ML INSULN.PEN SC (20:49)
[2024-07-21 21:31] LABS: Bedside Glucose 203 mg/dL (74-106)
--- NOTE | 2024-07-21 22:30 | PCM.POSTANE2 ---
Anesthesia Postop Eval I Sum Postop Eval Completion status Anesthesia document: Postop Eval 1 completed: Yes Anesthesia Postop Eval I Summary Anesthesia Postop Eval I Summary: Anesthesia Postop Eval I: Assessment Summary Airway patent Yes 07/21/24 17:59 Spontaneous unlabored Yes 07/21/24 17:59 respirations Mental status Awake,Calm 07/21/24 17:59 nausea No 07/21/24 17:59 Vomiting No 07/21/24 17:59 Anesthesia Postop Eval I: Fluid Summary Crystalloid volume administer 500 07/21/24 17:59 (ml) Colloids volume administered ( ml) Blood Product volume administered (ml) Total IV fluid infused 500 07/21/24 17:59 Anesthesia Postop Eval I: Summary Notes Anesthesia Complication No 07/21/24 17:59 Anesthesia Complication Comment: Post-operative progress note Anesthesia: Postop Eval II Evaluation Mental status: Awake and Calm Pain Level: 0 nausea: No Vomiting: No Complications Anesthesia Complication: No
[2024-07-22 03:46] VITALS: BP 168/64; PULSE 66; RESP 18; TEMP 36.5; O2SAT 97
[2024-07-22] MEDS: Acetaminophen 325 MG Tablet 650 MG PO ×3 (03:50→19:45)
[2024-07-22] MEDS: oxyCODONE 5 MG Tablet PO ×4 (03:50→19:46)
[2024-07-22] MEDS: Ondansetron 4 MG/2 ML Vial IV ×2 (06:23→19:45)
[2024-07-22] MEDS: Morphine 2 MG/ML Syringe IV (06:25)
[2024-07-22] MEDS: Sucralfate 1 GM Tablet PO ×4 (06:26→23:03)
[2024-07-22] MEDS: Insulin Lispro 100 UNIT/ML INSULN.PEN SC ×4 (06:33→23:00)
--- NOTE | 2024-07-22 06:49 | PCM.PN.HOSP ---
Reason for Visit Reason for Visit: Diagnoses Other specified diseases of biliary tract (07/18/24) Other specified diseases of pancreas (07/18/24) Upper abdominal pain, unspecified (07/18/24) Diarrhea, unspecified (07/18/24) Subjective Subjective Complaining of worsening abdominal pain. Objective Data Objective Data Vital Signs: Vital Signs Temp Pulse Resp BP Pulse Ox O2 Del Method O2 Flow Rate 36.5 C L 66 18 168/64 H 97 Room Air 2 07/22/24 03:46 07/22/24 03:46 07/22/24 03:46 07/22/24 03:46 07/22/24 03:46 07/22/24 03:46 07/21/24 23:04 Oxygen Flow Rate (L/min) 2 Oxygen Delivery Method Room Air Weight: 74.9 kg Body Mass Index (BMI) 30.4 Intake & Output: Intake and Output for Last 24 Hours 07/20/24 07/21/24 07/22/24 23:59 23:59 23:59 Intake Total 500 / 500 Balance 500 / 500 Lab / Micro Data 07/21/24 03:41 07/21/24 03:41 Labs: Laboratory Results - last 24 hr 07/21/24 04:32: POC Glucose 155 H 07/21/24 12:18: POC Glucose 145 H 07/21/24 20:43: POC Glucose 203 H Micro: Microbiology 07/18/24 22:28 Urine, Clean Catch Urine Culture - Final GNR 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 As above. Reading Location: [facility] Physical Exam Const alert Constitutional Narrative: non-toxic. HEENT head/scalp atraumatic and moist oral mucous membranes Resp normal respiratory effort, no retractions, no use of accessory muscles and clear to auscultation bilaterally Cardio regular rate, regular rhythm, S1 normal heart sound and S2 normal heart sound GI normal to inspection, nondistended, normoactive bowel sounds and soft to palpation GI Narrative: TTP. slightly distended. Assessment & Plan Assessment/Plan (1) Common bile duct dilatation: PLAN: 7mm on CT, 9mm on US. No choledocholithiasis noted GI consulted. MRCP mild intra and extrahepatic biliary dilation as well as mild pancreatic ductal dilation. GI following ERCP single localized biliary stricture was found in the lower third of the main bile duct. Choledocholithiasis found. Biliary sphincterotomy. Stent placed in CBD. Abdominal pain worse today. Lipase up to 160. AXR showing ascending colon stool, pneumobilia. (2) Dilation of pancreatic duct: PLAN: as above. (3) Abdominal pain: PLAN: Unclear etiology. Lipase up slightly, so could be pancreatitis (possible post-ERCP). Pneumobilia noted on xray. Unclear significance at this time. Plan to continue to monitor for now. Consider CT if worse. PLAN: Plan Chronic conditions: frequent UTIs. UA here was negative for infection as well as UCx. Previously on nitrofurantoin. Follow up with Dr. Jessica as outpt MCI: on donepezil, currently on hold. reported h/o confusion: may be multifactorial given dementia/MCI plus medications. Currently no issues as pt is appropriate. Depression/anxiety: quetiapine RLS: Mirapex. CAD: on ASA and statin. VTE prophylaxis: SCDs. Charges/Coding Visit Charges Inpatient E&M: 44648 Subs Hosp L2
[2024-07-22 07:18] LABS: Bedside Glucose 167 mg/dL (74-106)
[2024-07-22 07:34] VITALS: BP 152/80; PULSE 70; RESP 16; TEMP 37; O2SAT 95
[2024-07-22] MEDS: Carvedilol 12.5 MG Tablet PO ×2 (07:49→16:36)
[2024-07-22] MEDS: Nitrofurantoin Macrocrystals 100 MG Capsule PO ×2 (07:49→16:35)
[2024-07-22] MEDS: Aspirin E.C. 81 MG Tablet PO (07:55)
--- NOTE | 2024-07-22 09:45 | RAD_ITS ---
PROCEDURE: ABDOMEN SINGLE VIEW (PORTABLE) 07/22/2024 REASON FOR EXAM: ABDOMINAL PAIN TECHNIQUE: Single view abdomen. COMPARISON: 07/21/2024; 07/19/2024 FINDINGS: No bowel distention. There is a moderate volume of stool in the ascending colon. No free air or pneumatosis identified. Interval placement of a common bile duct stent which is in its expected location. Pneumobilia and biliary dilatation is noted. The osseous and soft tissue structures are unremarkable. A loop recorder device is partially visualized in the lower chest. RAD/Abdomen Single View (Portable) IMPRESSION: 1. Moderate volume of stool in the ascending colon. 2. Interval placement of a common bile duct stent in its expected location. 3. Pneumobilia and biliary dilatation. Reading Location: [facility]
[2024-07-22] MEDS: Losartan Potassium 50 MG Tablet PO ×2 (10:31→23:04)
[2024-07-22] MEDS: DULoxetine Hcl 30 MG Capsule PO ×2 (10:31→23:04)
[2024-07-22] MEDS: Dicyclomine 10 MG Capsule 20 MG PO ×2 (10:31→22:58)
[2024-07-22] MEDS: Fluorometholone 0.1% Susp 1 DRP DROPS OPHTHALMIC ×2 (10:31→22:58)
[2024-07-22] MEDS: Nystatin Powder 15gm Bottle 1 APPLIC TOPICAL ×2 (10:32→23:03)
[2024-07-22] MEDS: Lidocaine 5% Patch 1 PATCH TOPICAL (10:32)
[2024-07-22] MEDS: Isosorbide Mononitrate 30 MG Tablet PO ×2 (10:32→22:59)
[2024-07-22] MEDS: Pramipexole Di-HCl 0.5 MG Tablet PO (10:41)
[2024-07-22] MEDS: hydrOXYzine PAM 25 MG Capsule 50 MG PO ×2 (10:41→22:59)
[2024-07-22] MEDS: Pantoprazole Sodium 40 MG Tablet PO (10:41)
[2024-07-22] MEDS: Modafinil 200 MG Tablet PO (10:42)
[2024-07-22 10:50] LABS: Lipase 160 U/L (13-75)
[2024-07-22 11:08] LABS: ACCA 31 units (0-90); ALCA 8 units (0-60); AMCA 21 units (0-100); Albumin 3.3 g/dL (2.9-4.4); Alpha-1-Globulins 0.3 g/dL (0.0-0.4); Alpha-2-Globulins 0.7 g/dL (0.4-1.0); Carbohydrate AG 19-9 24 U/mL (0-35); Gamma Globulin 0.7 g/dL (0.4-1.8); IMMUNOFIXATION RESULT,S Comment: (.); IgG, Quant 843 mg/dL (586-1602); Immunoglobulin A 140 mg/dL (87-352); Immunoglobulin G, Subclass 1 511 mg/dL (248-810); Immunoglobulin G, Subclass 2 123 mg/dL (130-555); Immunoglobulin G, Subclass 3 22 mg/dL (15-102); Immunoglobulin G, Subclass 4 1 mg/dL (2-96); Immunoglobulin M 44 mg/dL (26-217); PROEL- TOTAL PROTEIN 5.9 g/dL (6.0-8.5); Perinuclear Ab (P-ANCA) <1:20 titer (Neg:<1:20); gASCA 5 units (0-50)
[2024-07-22] MEDS: Polyethylene Glycol 3350 17 GM PACKET PO (11:43)
[2024-07-22] MEDS: Ferrous Sulfate 325 MG Tablet PO (11:52)
[2024-07-22] MEDS: Donepezil HCl 10 MG Tablet 20 MG PO (11:52)
[2024-07-22 12:06] LABS: Bedside Glucose 233 mg/dL (74-106)
[2024-07-22 13:43] VITALS: BP 144/74; PULSE 66; RESP 16; TEMP 36.8; O2SAT 95
[2024-07-22] MEDS: Vibegron 75 MG TABLET PO (13:54)
--- NOTE | 2024-07-22 14:44 | CASEMGMT ---
Spoke with pt nurse regarding need for therapy for pt. Pt is up every half hour to restroom with walker. No therapy needed at this point.
[2024-07-22] MEDS: Senna/Docusate Sodium 1 Tablet 2 TABLET PO (15:30)
--- NOTE | 2024-07-22 16:36 | PN_ITS ---
Progress Note Patient underwent ERCP yesterday. 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 She rates her pain at a 5 out of 10. When she came in hospital her pain was 10 out of 10. She she denies any chest pain or shortness of breath. She is tolerating a diet despite her abdominal pain. She has been afebrile. Physical Exam Const alert Constitutional Narrative: non-toxic. HEENT head/scalp atraumatic and moist oral mucous membranes Resp normal respiratory effort, no retractions, no use of accessory muscles and clear to auscultation bilaterally Cardio regular rate, regular rhythm, S1 normal heart sound and S2 normal heart sound GI normal to inspection, nondistended, normoactive bowel sounds and soft to palpation GI Narrative: TTP. slightly distended. Assessment & Plan Assessment/Plan (1) Dilation of pancreatic duct: (2) Common bile duct dilatation: PLAN: She underwent MRCP : FINDINGS: Lung bases: Trace bilateral pleural effusions are present.. Liver: Unremarkable. Gallbladder and bile ducts: Mild intra and extrahepatic biliary dilatation is present with the common bile duct measuring 9.5 mm. No obstructing lesion or choledocholithiasis is identified. The gallbladder is unremarkable. Spleen: Unremarkable. Pancreas: The main pancreatic duct is dilated measuring 6 mm in diameter at the pancreatic head, as seen on the previous exam. No obstructing lesion or filling defect is identified. Adrenals: Unremarkable. Kidneys and ureters: Unremarkable. Bowel: Unremarkable. Lymph nodes: Unremarkable. Peritoneum: Unremarkable. Vessels: Unremarkable. Retroperitoneum: Unremarkable. Abdominal wall: Unremarkable. Bones: Moderate multilevel degenerative changes are present with a S shaped scoliosis in the thoracolumbar spine.. MRI/MRCP Abdomen without Contrast IMPRESSION: 1. Mild intra and extrahepatic biliary dilatation as well as mild pancreatic ductal dilatation. No obstructing etiology is identified. Correlation with laboratory values is recommended. ERCP can be considered if clinically appropriate. 2. Trace bilateral pleural effusions. Differential diagnosis for this abnormality would be an ampullary lesion, biliary stricture, stricture involving the pancreatic head secondary to chronic pancreatitis. She will undergo ERCP with evaluation of the distal common bile duct and ampulla. ERCP revealed a dominant stricture in the setting of a dilated common bile duct and pancreatic duct. Brushings were taken and and CA 19-9 was ordered. Continue supportive care and schedule patient for follow-up with contrast (3) Acute upper abdominal pain: PLAN: 68-year-old with history of possible multiple sclerosis. She also has a history of coronary artery disease with stenting to her LAD and angioplasty of her second diagonal in March [address] elevation myocardial infarction.? She was noted to have a left ventricle apical thrombus and cardiomyopathy with an ejection fraction of 25-30%.? This was repeated in June 2016 and the ejection fraction had improved to 40% with no evidence of ventricular thrombus.? She had a stress echo done in August of 2019 this improved to 55%.? Because of continued chest discomfort, She did have a stress test in August 2020 which was negative for ischemia.? She then did continue to complain of chest discomfort she did undergo a diagnostic heart catheterization in September 2020 which demonstrated patent stents. She has unfortunately had multiple visits to the emergency room for chest discomfort as well as elevated blood pressure. She also complained of abdominal discomfort hematemesis and had a GI evaluation. I do not have any records of her GI evaluation at that time. On October 27, 2021 she was admitted to [facility] for hypertensive emergency, right-sided abdominal pain. Patient did have a mildly elevated troponin. Echocardiogram demonstrated an ejection fraction of 48%, grade 1 diastolic dysfunction, small LV apical transmural thrombus noted. Left atrial cavity is moderately dilated. Right atrial cavity dilated. No significant valvular abnormalities noted. Stress test was found to be abnormal. Patient underwent a diagnostic heart catheterization and this was noted to be normal. She has been to our institution 2 times this month. On previous imaging there was possible pancreatic calcifications indicating she may have chronic pa ncreatitis. She denies any history of alcohol abuse. She does have diarrhea which could be secondary to pancreatic insufficiency. The differential diagnosis for abdominal pain with dilated common bile duct and pancreatic duct would be an ampullary lesion, ampullary stricture, malignancy, complications of chronic pancreatitis. She should undergo MRCP and ERCP for evaluation of her ampulla and distal common bile duct along with pancreatic duct. (4) Diarrhea: PLAN: Differential diagnosis for her diarrhea does include infectious colitis, IBS with diarrhea, pancreatic insufficiency. Recommend stool studies for enteric pathogens, C. difficile, white blood cells, lactoferrin and fecal elastase. PLAN: Plan 07/20/2024-patient's autoimmune labs are pending. She is for ERCP tomorrow. N.p.o. past midnight. 07/21/2024- Further recommendations after ERCP Visit Charges Inpatient E&M: 01206 Subs Hosp L3
[2024-07-22 16:42] LABS: Bedside Glucose 201 mg/dL (74-106)
[2024-07-22 19:42] VITALS: BP 145/76; PULSE 72; RESP 18; TEMP 37.2; O2SAT 96
[2024-07-22] MEDS: 0.9% Saline Lock 10 ML Syringe IV (19:46)
[2024-07-22 22:57] VITALS: BP 147/72; PULSE 78; RESP 16; TEMP 37; O2SAT 95
[2024-07-22] MEDS: QUEtiapine 100 MG Tablet PO (22:59)
[2024-07-22] MEDS: Pramipexole Di-HCl 1 MG Tablet PO (22:59)
[2024-07-22] MEDS: QUEtiapine 25 MG Tablet PO (22:59)
[2024-07-22] MEDS: Atorvastatin Calcium 40 MG Tablet PO (23:06)
[2024-07-23 00:04] LABS: Bedside Glucose 195 mg/dL (74-106)
[2024-07-23 04:16] VITALS: BP 130/68; PULSE 78; RESP 18; TEMP 37.2; O2SAT 96
[2024-07-23] MEDS: Insulin Lispro 100 UNIT/ML INSULN.PEN SC ×4 (06:42→20:33)
[2024-07-23] MEDS: Sucralfate 1 GM Tablet PO ×4 (06:43→20:26)
[2024-07-23 07:05] LABS: Bedside Glucose 202 mg/dL (74-106)
--- NOTE | 2024-07-23 07:14 | PN.HOSP_ITS ---
Reason for Visit Reason for Visit: Diagnoses Other specified diseases of biliary tract (07/22/24) Other specified diseases of pancreas (07/22/24) Upper abdominal pain, unspecified (07/22/24) Unspecified abdominal pain (07/22/24) Diarrhea, unspecified (07/22/24) Subjective Subjective Feeling better. Constipated. Objective Data Objective Data Vital Signs: Vital Signs Temp Pulse Resp BP Pulse Ox O2 Del Method O2 Flow Rate 37.2 C 78 18 130/68 H 96 Room Air 2 07/23/24 04:16 07/23/24 04:16 07/23/24 04:16 07/23/24 04:16 07/23/24 04:16 07/23/24 04:16 07/21/24 23:04 Oxygen Flow Rate (L/min) 2 Oxygen Delivery Method Room Air Weight: 74.9 kg Body Mass Index (BMI) 30.4 Intake & Output: Intake and Output for Last 24 Hours 07/21/24 07/22/24 07/23/24 23:59 23:59 23:59 Intake Total 350 / 350 Balance 350 / 350 Lab / Micro Data 07/21/24 03:41 07/21/24 03:41 Labs: Laboratory Results - last 24 hr 07/18/24 19:05: Total Protein (PEP) 5.9 L, Globulin 2.6, CA 19-9 Antigen 24, IgG Total 843, IgG1 511, IgG2 123 L, IgG3 22, IgG4 1 L, IgA 140, IgM 44, Immunofixation Screen Comment:, Albumin (DULCE) 3.3, Albumin/Globulin (DULCE) 1.3, [id number] DULCE 0.3, Iyssl-[id number] DULCE 0.7, Beta-Globulins (DULCE) 0.8, Gamma Globulins (DULCE) 0.7, DULCE M-Wilder Not Observed, DULCE Comments Comment, c- ANCA Antibody Comment, Atypical p-ANCA <1:20, p-ANCA Antibody <1:20, ALCA IgG Ab 8, AMCA IgG Ab 21, ACCA IgA Ab 31, IBD Serology Comment Comment, S.cerevisiae (Macy)IgG 5 07/22/24 06:32: POC Glucose 167 H 07/22/24 10:08: Lipase 160 H 07/22/24 11:36: POC Glucose 233 H 07/22/24 16:23: POC Glucose 201 H 07/22/24 22:58: POC Glucose 195 H 07/23/24 06:41: POC Glucose 202 H Micro: Microbiology 07/18/24 22:28 Urine, Clean Catch Urine Culture - Final GNR 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 Moderate volume of stool in the ascending colon. 2. Interval placement of a common bile duct stent in its expected location. 3. Pneumobilia and biliary dilatation. Reading Location: [facility] Physical Exam Const alert and no apparent distress HEENT head/scalp atraumatic and moist oral mucous membranes Resp normal respiratory effort, no retractions, no use of accessory muscles and clear to auscultation bilaterally Cardio regular rate, regular rhythm, S1 normal heart sound and S2 normal heart sound GI normal to inspection, nondistended, normoactive bowel sounds, soft to palpation, non-tender and non-distended Assessment & Plan Assessment/Plan (1) Common bile duct dilatation: PLAN: 7mm on CT, 9mm on US. No choledocholithiasis noted GI consulted. MRCP mild intra and extrahepatic biliary dilation as well as mild pancreatic ductal dilation. GI following ERCP single localized biliary stricture was found in the lower third of the main bile duct. Choledocholithiasis found. Biliary sphincterotomy. Stent placed in CBD. Abdominal pain worse today. Lipase up to 160. AXR showing ascending colon stool, pneumobilia. (2) Dilation of pancreatic duct: PLAN: as above. (3) Abdominal pain: PLAN: Unclear etiology. Lipase up slightly, so could be pancreatitis (possible post-ERCP). Pneumobilia noted on xray. Unclear significance at this time. Plan to continue to monitor for now. Consider CT if worse. PLAN: Plan Constipation: given Magnesium citrate. Chronic conditions: * frequent UTIs. UA here was negative for infection as well as UCx. Previously on nitrofurantoin. Follow up with Dr. Jessica as outpt * MCI: on donepezil, currently on hold. * reported h/o confusion: may be multifactorial given dementia/MCI plus medications. Currently no issues as pt is appropriate. * Depression/anxiety: quetiapine * RLS: Mirapex. * CAD: on ASA and statin. VTE prophylaxis: SCDs. Charges/Coding Visit Charges Inpatient E&M: 54132 Subs Hosp L2
[2024-07-23 09:24] VITALS: BP 146/70; PULSE 77; RESP 16; TEMP 36.7; O2SAT 94
[2024-07-23] MEDS: Ondansetron 4 MG/2 ML Vial IV ×2 (09:32→20:24)
[2024-07-23] MEDS: 0.9% Saline Lock 10 ML Syringe IV ×2 (09:32→16:45)
[2024-07-23] MEDS: Morphine 2 MG/ML Syringe IV ×2 (09:33→16:45)
[2024-07-23] MEDS: Carvedilol 12.5 MG Tablet PO ×2 (09:34→16:41)
[2024-07-23] MEDS: Dicyclomine 10 MG Capsule 20 MG PO ×2 (09:34→20:25)
[2024-07-23] MEDS: Isosorbide Mononitrate 30 MG Tablet PO ×2 (09:34→20:27)
[2024-07-23] MEDS: Losartan Potassium 50 MG Tablet PO ×2 (09:34→20:26)
[2024-07-23] MEDS: DULoxetine Hcl 30 MG Capsule PO ×2 (09:34→20:28)
[2024-07-23] MEDS: Aspirin E.C. 81 MG Tablet PO (09:34)
[2024-07-23] MEDS: Pantoprazole Sodium 40 MG Tablet PO (09:35)
[2024-07-23] MEDS: Nystatin Powder 15gm Bottle 1 APPLIC TOPICAL ×2 (09:35→20:25)
[2024-07-23] MEDS: Lidocaine 5% Patch 1 PATCH TOPICAL (09:35)
[2024-07-23] MEDS: hydrOXYzine PAM 25 MG Capsule 50 MG PO ×2 (09:35→22:27)
[2024-07-23] MEDS: Nitrofurantoin Macrocrystals 100 MG Capsule PO ×2 (09:36→16:41)
[2024-07-23] MEDS: Pramipexole Di-HCl 0.5 MG Tablet PO (09:36)
[2024-07-23] MEDS: Vibegron 75 MG TABLET PO (09:37)
[2024-07-23] MEDS: Fluorometholone 0.1% Susp 1 DRP DROPS OPHTHALMIC ×2 (09:37→20:28)
[2024-07-23] MEDS: Magnesium Citrate 300 ML 150 ML PO ×2 (09:38→13:43)
[2024-07-23] MEDS: Modafinil 200 MG Tablet PO (10:06)
[2024-07-23] MEDS: Donepezil HCl 10 MG Tablet 20 MG PO (11:42)
[2024-07-23] MEDS: Ferrous Sulfate 325 MG Tablet PO (11:43)
[2024-07-23 12:03] LABS: Bedside Glucose 187 mg/dL (74-106)
[2024-07-23] MEDS: oxyCODONE 5 MG Tablet PO ×2 (13:42→20:24)
[2024-07-23] MEDS: Senna/Docusate Sodium 1 Tablet 2 TABLET PO (13:42)
[2024-07-23] MEDS: Acetaminophen 325 MG Tablet 650 MG PO ×2 (13:42→20:24)
[2024-07-23 14:53] VITALS: BP 167/76; PULSE 76; RESP 16; TEMP 36.4; O2SAT 94
[2024-07-23 17:00] LABS: Bedside Glucose 183 mg/dL (74-106)
[2024-07-23 20:18] VITALS: BP 154/78; PULSE 64; RESP 16; TEMP 36.7; O2SAT 95
[2024-07-23] MEDS: QUEtiapine 25 MG Tablet PO (20:28)
[2024-07-23] MEDS: Atorvastatin Calcium 40 MG Tablet PO (20:28)
[2024-07-23] MEDS: QUEtiapine 100 MG Tablet PO (20:30)
[2024-07-23] MEDS: Pramipexole Di-HCl 1 MG Tablet PO (20:31)
[2024-07-23 20:59] LABS: Bedside Glucose 242 mg/dL (74-106)
[2024-07-24] MEDS: Insulin Lispro 100 UNIT/ML INSULN.PEN SC ×3 (06:58→16:01)
[2024-07-24 07:38] VITALS: BP 124/63; PULSE 63; RESP 18; TEMP 36.6; O2SAT 95
[2024-07-24] MEDS: Senna/Docusate Sodium 1 Tablet 2 TABLET PO (07:41)
[2024-07-24] MEDS: Sucralfate 1 GM Tablet PO ×3 (07:41→16:01)
[2024-07-24] MEDS: 0.9% Saline Lock 10 ML Syringe IV (07:44)
[2024-07-24] MEDS: Nystatin Powder 15gm Bottle 1 APPLIC TOPICAL (07:44)
[2024-07-24] MEDS: Morphine 2 MG/ML Syringe IV (07:44)
[2024-07-24] MEDS: Ondansetron 4 MG/2 ML Vial IV (07:44)
[2024-07-24] MEDS: Isosorbide Mononitrate 30 MG Tablet PO (07:45)
[2024-07-24] MEDS: Dicyclomine 10 MG Capsule 20 MG PO (07:45)
--- NOTE | 2024-07-24 07:45 | PN.HOSP_ITS ---
Reason for Visit Reason for Visit: Diagnoses Other specified diseases of biliary tract (07/22/24) Other specified diseases of pancreas (07/22/24) Upper abdominal pain, unspecified (07/22/24) Unspecified abdominal pain (07/22/24) Diarrhea, unspecified (07/22/24) Subjective Subjective Feeling well. No BM despite the Mag Citrate. Objective Data Objective Data Vital Signs: Vital Signs Temp Pulse Resp BP Pulse Ox O2 Del Method O2 Flow Rate 36.6 C 63 18 124/63 H 95 Room Air 2 07/24/24 07:38 07/24/24 07:38 07/24/24 07:38 07/24/24 07:38 07/24/24 07:38 07/24/24 07:38 07/21/24 23:04 Oxygen Flow Rate (L/min) 2 Oxygen Delivery Method Room Air Weight: 75 kg Body Mass Index (BMI) 30.4 Intake & Output: Intake and Output for Last 24 Hours 07/22/24 07/23/24 07/24/24 23:59 23:59 23:59 Intake Total 350 / 350 100 / 100 Balance 350 / 350 100 / 100 Lab / Micro Data 07/21/24 03:41 07/21/24 03:41 Labs: Laboratory Results - last 24 hr 07/18/24 19:05: IgG Not Reportable 07/23/24 11:40: POC Glucose 187 H 07/23/24 16:36: POC Glucose 183 H 07/23/24 20:33: POC Glucose 242 H Micro: Microbiology 07/18/24 22:28 Urine, Clean Catch Urine Culture - Final GNR lactose 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 No choledocholithiasis noted GI consulted. MRCP mild intra and extrahepatic biliary dilation as well as mild pancreatic ductal dilation. GI following ERCP single localized biliary stricture was found in the lower third of the main bile duct. Choledocholithiasis found. Biliary sphincterotomy. Stent placed in CBD. Follow up with GI to have stent removal. (2) Dilation of pancreatic duct: PLAN: as above. PLAN: Plan Constipation: given Magnesium citrate x2. Will give another dose today Chronic conditions: * frequent UTIs. UA here was negative for infection as well as UCx. Previously on nitrofurantoin. Follow up with Dr. Jessica as outpt * MCI: on donepezil, currently on hold. * reported h/o confusion: may be multifactorial given dementia/MCI plus medications. Currently no issues as pt is appropriate. * Depression/anxiety: quetiapine * RLS: Mirapex. * CAD: on ASA and statin. VTE prophylaxis: SCDs. Charges/Coding Visit Charges Inpatient E&M: 68656 Subs Hosp L2
[2024-07-24] MEDS: Pramipexole Di-HCl 0.5 MG Tablet PO (07:46)
[2024-07-24] MEDS: DULoxetine Hcl 30 MG Capsule PO (07:46)
[2024-07-24] MEDS: Pantoprazole Sodium 40 MG Tablet PO (07:46)
[2024-07-24] MEDS: Nitrofurantoin Macrocrystals 100 MG Capsule PO ×2 (07:47→16:03)
[2024-07-24] MEDS: Fluorometholone 0.1% Susp 1 DRP DROPS OPHTHALMIC (07:47)
[2024-07-24] MEDS: Carvedilol 12.5 MG Tablet PO ×2 (07:47→16:01)
[2024-07-24] MEDS: Losartan Potassium 50 MG Tablet PO (07:47)
[2024-07-24] MEDS: Lidocaine 5% Patch 1 PATCH TOPICAL (07:48)
[2024-07-24] MEDS: Aspirin E.C. 81 MG Tablet PO (07:48)
[2024-07-24] MEDS: Vibegron 75 MG TABLET PO (07:48)
[2024-07-24] MEDS: Modafinil 200 MG Tablet PO (07:52)
[2024-07-24] MEDS: hydrOXYzine PAM 25 MG Capsule 50 MG PO (09:46)
--- NOTE | 2024-07-24 10:13 | NURSING ---
downtime documentation 07/24/24 12am until 7am
[2024-07-24 10:35] LABS: Bedside Glucose 180 mg/dL (74-106)
[2024-07-24] MEDS: Donepezil HCl 10 MG Tablet 20 MG PO (11:54)
[2024-07-24] MEDS: Ferrous Sulfate 325 MG Tablet PO (11:54)
[2024-07-24] MEDS: Magnesium Citrate 300 ML PO (12:03)
[2024-07-24 12:05] LABS: Bedside Glucose 218 mg/dL (74-106)
[2024-07-24] MEDS: Acetaminophen 325 MG Tablet 650 MG PO (12:05)
[2024-07-24] MEDS: oxyCODONE 5 MG Tablet PO (12:05)
[2024-07-24 14:08] VITALS: BP 134/70; PULSE 67; RESP 18; TEMP 36.6; O2SAT 95
[2024-07-24] MEDS: tiZANidine HCl 2 MG Tablet PO (16:19)
[2024-07-24] MEDS: Bisacodyl 10 MG Suppository RC (16:19)
--- NOTE | 2024-07-24 16:35 | DCINST_ITS ---
Discharge Instructions Diet Discharge Diet: No restrictions DC O2, CPAP, BIPAP needs Home O2 Discharge instructions: No Follow Up Care Test Results: Test results from this visit will be discussed in further detail at your follow- up appointment, if applicable. Discharge Plan Admission Admit Date/Time: 07/22/24 15:59 Primary Reason for Your Visit: biliary stricture Attending Provider: Yg Moreland Primary Care Provider: Carlton Rocha [facility] Consulting Providers: Florence Santos Discharge Orders/Prescriptions Prescriptions: Continued cholecalciferol (vitamin D3) 125 mcg (5,000 unit) capsule 125 mcg PO DAILY ferrous sulfate 325 mg (65 mg iron) tablet 325 mg PO DAILY aspirin [Adult Aspirin Regimen] 81 mg tablet,delayed release (DR/EC) 81 mg PO DAILY donepezil 10 mg tablet 20 mg PO DAILY Rx Instructions: with lunch insulin lispro 100 unit/mL insulin pen 1 sliding scale dose subcut [facility] Patient Comments: Use with meals based on PRE meal blood sugar SLIDING SCALE as needed #1 (1 unit for every 50 over 150) Max 20 units daily. nitroglycerin 0.4 mg tablet, sublingual 0.4 mg sublingual Q5-15M Qty: 25 3RF albuterol sulfate 2.5 mg /3 mL (0.083 %) solution for nebulization 2.5 mg inhalation Q8H PRN (Reason: Dyspnea, wheezing) Qty: 180 0RF hydrocortisone 2.5 % cream 1 applic topical BID PRN (Reason: skin irritation) Qty: 454 1RF Gemtesa 75 mg tablet 75 mg PO DAILY lidocaine [Lidoderm] 5 % adhesive patch,medicated 1 patch topical DAILY Rx Instructions: leave on most painful area for up to 12 hrs isosorbide mononitrate 30 mg tablet extended release 24 hr 30 mg PO BID Qty: 180 3RF ropinirole 1 mg tablet 1 mg PO QDAY Rx Instructions: 1mg at lunch and 2mg at HS duloxetine [Cymbalta] 30 mg capsule,delayed release(DR/EC) 30 mg PO BID Qty: 180 2RF ramelteon 8 mg tablet 8 mg PO QHS PRN (Reason: sleep) Qty: 90 1RF ropinirole 2 mg tablet 2 mg PO QHS Rx Instructions: 1mg at lunch and 2mg at HS sucralfate 1 gram tablet 1 g PO 4X/DAY modafinil 200 MG tablet 200 mg PO DAILY acetaminophen 500 MG tablet 1,000 mg PO TID PRN (Reason: pain 1-02/03) Qty: 1 0RF Rx Instructions: alternate with ibuprofen atorvastatin 40 mg tablet 40 mg PO QHS ascorbic acid (vitamin C) 500 mg tablet,chewable 500 mg PO DAILY Prolia 60 mg/mL syringe 60 mg subcut [id number] tizanidine 2 mg tablet 2 mg PO DAILY PRN (Reason: pain) Rx Instructions: TAKE 1 TABLET BY MOUTH EVERY MORNING and 1 to 2 TABLETS AT BEDTIME NEEDED FOR PAIN control clotrimazole-betamethasone 1-0.05 % cream 1 applic topical BID nystatin [Nystop] 100,000 unit/gram powder 1 applic topical BID nitrofurantoin monohyd/m-cryst 100 mg capsule 1 cap PO BID Mounjaro 10 mg/0.5 mL pen injector 10 mg subcut QWEEK tizanidine 2 mg tablet 2 - 4 mg PO QHS PRN (Reason: pain) Rx Instructions: TAKE 1 TABLET BY MOUTH EVERY MORNING and 1 to 2 TABLETS AT BEDTIME NEEDED FOR PAIN control quetiapine 100 mg tablet See Rx Instructions .ROUTE .COMPLEX Rx Instructions: To be taken with 100 mg tablet at bedtime for nightly dose of 125 mg qHS ondansetron HCl 4 mg tablet 4 mg PO Q8H PRN dicyclomine 20 mg tablet 20 mg PO BID fluorometholone 0.1 % drops,suspension 1 drp ophthalmic (eye) BID (DME) Accu-Chek Ada Plus test strp Strip See Rx Instructions .Route Qty: 100 6RF Rx Instructions: As directed pantoprazole 40 mg tablet,delayed release (DR/EC) 40 mg PO DAILY Qty: 90 1RF albuterol sulfate 90 mcg/actuation HFA aerosol inhaler 2 puff inhalation Q6H PRN (Reason: shortness of breath or wheezing) Qty: 8.5 2RF hydroxyzine HCl 50 mg tablet See Rx Instructions .ROUTE .COMPLEX Qty: 60 0RF Dose Instruction: TAKE 1 TABLET BY MOUTH TWICE DAILY NEEDED for itching Rx Instructions: TAKE 1 TABLET BY MOUTH TWICE DAILY NEEDED for itching Eliquis 5 mg tablet 5 mg PO BID Qty: 180 3RF carvedilol 12.5 mg tablet 12.5 mg PO BID Qty: 180 3RF Rx Instructions: must administer with a meal/food losartan 50 mg tablet 50 mg PO BID Qty: 180 3RF quetiapine 25 mg tablet 25 mg PO QHS Qty: 90 0RF Rx Instructions: To be taken with 100 mg tablet at bedtime for nightly dose of 125 mg qHS Discontinued oxycodone 5 mg capsule 5 mg PO DAILY PRN (Reason: pain) Referrals / Follow Up: Carlton Rocha Cassandra, RN FIELD-C [Primary Care Provider] - Disposition Disposition (needs filled in before D/C Order can be placed): Home, Self Care
[2024-07-24 16:39] LABS: Bedside Glucose 205 mg/dL (74-106)
--- NOTE | 2024-07-24 17:17 | DS.PCM_ITS ---
Providers Date of Admission: 07/22/24 Primary Care Physician: JAYRO Gonzalez Consultations 07/18/24 20:15 Consult: Gastroenterology Routine Consulting Provider: [facility] Reason for Consult: dilated cbd EMERGENT Consult: No MD Notified: Yes Date Notified: 07/18/24 Time Notified: 20:15 Method of Notification: ED Physician Initiated Reason For Visit: DILATED CBD Diagnosis Discharge Diagnosis (1) Common bile duct dilatation: Status: Acute Code(s): K83.8 - Other specified diseases of biliary tract Plan: 7mm on CT, 9mm on US. No choledocholithiasis noted GI consulted. MRCP mild intra and extrahepatic biliary dilation as well as mild pancreatic ductal dilation. GI following ERCP single localized biliary stricture was found in the lower third of the main bile duct. Choledocholithiasis found. Biliary sphincterotomy. Stent placed in CBD. Follow up with GI to have stent removal. (2) Dilation of pancreatic duct: Status: Acute Code(s): K86.89 - Other specified diseases of pancreas Plan: as above. Plan Constipation: given Magnesium citrate x2. Will give another dose today Chronic conditions: * frequent UTIs. UA here was negative for infection as well as UCx. Previously on nitrofurantoin. Follow up with Dr. Jessica as outpt * MCI: on donepezil, currently on hold. * reported h/o confusion: may be multifactorial given dementia/MCI plus medications. Currently no issues as pt is appropriate. * Depression/anxiety: quetiapine * RLS: Mirapex. * CAD: on ASA and statin. VTE prophylaxis: SCDs. Medications at Discharge Home Medications modafinil 200 mg tablet 200 mg PO DAILY to stay awake 12/12/19 acetaminophen 500 mg tablet 1,000 mg (2 x 500 mg) PO TID PRN pain -02/03 #1 TAB 07/29/20 cholecalciferol (vitamin D3) 125 mcg (5,000 unit) capsule 125 mcg PO DAILY supplement 11/05/21 ferrous sulfate 325 mg (65 mg iron) tablet 325 mg PO DAILY supplement 11/05/21 aspirin 81 mg tablet,delayed release (Adult Aspirin Regimen) 81 mg PO DAILY heart health 04/01/22 ascorbic acid (vitamin C) 500 mg chewable tablet 500 mg PO DAILY supplement 06/06/22 atorvastatin 40 mg tablet 40 mg PO QHS cholesterol 06/06/22 denosumab 60 mg/mL subcutaneous syringe (Prolia) 60 mg subcut [id number] bone health 06/06/22 albuterol sulfate 2.5 mg/3 mL (0.083 %) solution for nebulization 2.5 mg (3 mL) inhalation Q8H PRN Dyspnea, wheezing #180 mL 07/21/22 blood sugar diagnostic (Accu-Chek Ada Plus test strips) #100 ea 07/29/22 pantoprazole 40 mg tablet,delayed release 40 mg PO DAILY gerd #90 tabs 09/04/22 donepezil 10 mg tablet 20 mg PO DAILY 09/11/22 insulin lispro 100 unit/mL subcutaneous pen 1 sliding scale dose subcut QAC 09/11/22 nitroglycerin 0.4 mg sublingual tablet 0.4 mg sublingual Q5-15M #25 tabs 09/11/22 hydrocortisone 2.5 % topical cream 1 applic topical BID PRN skin irritation #454 grams 09/12/22 albuterol sulfate 90 mcg/actuation aerosol inhaler 2 puff inhalation Q6H PRN shortness of breath or wheezing #8.5 grams 10/29/22 hydroxyzine HCl 50 mg tablet See Rx Instructions .Route .COMPLEX #60 tabs 11/21/22 vibegron 75 mg tablet (Gemtesa) 75 mg PO DAILY 01/30/23 isosorbide mononitrate 30 mg tablet,extended release 24 hr 30 mg PO BID heart #180 tabs 06/22/23 lidocaine 5 % topical patch (Lidoderm) 1 patch topical DAILY 06/22/23 apixaban 5 mg tablet (Eliquis) 5 mg PO BID #180 tabs 10/02/23 carvedilol 12.5 mg tablet 12.5 mg PO BID this is a dose increase #180 tabs 11/23/23 losartan 50 mg tablet 50 mg PO BID #180 tabs 12/14/23 ropinirole 2 mg tablet 2 mg PO QHS restless leg 03/01/24 sucralfate 1 gram tablet 1 g PO 4X/DAY reflux 03/01/24 duloxetine 30 mg capsule,delayed release (Cymbalta) 30 mg PO BID mental health #180 caps 05/03/24 ramelteon 8 mg tablet 8 mg PO QHS PRN sleep #90 tabs 05/03/24 ropinirole 1 mg tablet 1 mg PO QDAY 05/03/24 dicyclomine 20 mg tablet 20 mg PO BID 07/10/24 fluorometholone 0.1 % eye drops,suspension 1 drp ophthalmic (eye) BID 07/10/24 ondansetron HCl 4 mg tablet 4 mg PO Q8H PRN nausea and vomiting 07/10/24 quetiapine 25 mg tablet 25 mg PO QHS #90 tabs 07/12/24 clotrimazole-betamethasone 1 %-0.05 % topical cream 1 applic topical BID 07/18/24 nitrofurantoin monohydrate/macrocrystals 100 mg capsule 1 cap PO BID 07/18/24 nystatin 100,000 unit/gram topical powder (Nystop) 1 applic topical BID 07/18/24 quetiapine 100 mg tablet See Rx Instructions .Route .COMPLEX 07/18/24 tirzepatide 10 mg/0.5 mL subcutaneous pen injector (Mounjaro) 10 mg subcut QWEEK 07/18/24 tizanidine 2 mg tablet 2 - 4 mg PO QHS PRN pain 07/18/24 tizanidine 2 mg tablet 2 mg PO DAILY PRN pain 07/18/24 Hospital Course Operations None Procedures - (ERCP) Summary of Care Provided Minutes Spent on Discharge: 40 Hospital Course: This is a 68-year-old female presents with abdominal pain. Patient had CAT scan that showed dilation of the pancreatic duct as well as common bile duct. MRCP showed mild intra and extrahepatic biliary duct dilation as well as mild pancreatic duct dilation. GI was consulted and patient underwent an ERCP which showed choledocholithiasis which had a complete removal as well as a single localized biliary stricture. Patient had a biliary sphincterotomy placed as well as stent placed. Patient did okay but then had some more belly pain the following day. Lipase was elevated. This may have been post ERCP pancreatitis. Patient did well from that standpoint. But then was having issues with constipation. Took a while with several doses of magnesium citrate and Dulcolax but she did start having a bowel movement. Patient is overall feeling well and will be discharged home. 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 * Patients 75 years or YOUNGER should receive HIGH intensity statin dose unless contraindicated. You will be required to document reason for non-treatment if statin daily dose does not meet guidelines. HIGH DOSE STATIN THERAPY DAILY Atorvastatin > than or = to 40 mg Rosuvastatin > than or = to 20 mg Amlodipine + Atorvastatin > than or = to 2.5/40 mg Ezetimibe + Simvastatin 10/80 mg Simvastatin 80mg Discharge Plan Admission Admit Date/Time: 07/22/24 15:59 Primary Reason for Your Visit: biliary stricture Attending Provider: Yg Moreland Primary Care Provider: Carlton Rocha Cass[facility] Consulting Providers: Florence Santos Discharge Orders/Prescriptions Prescriptions: Continued cholecalciferol (vitamin D3) 125 mcg (5,000 unit) capsule 125 mcg PO DAILY ferrous sulfate 325 mg (65 mg iron) tablet 325 mg PO DAILY aspirin [Adult Aspirin Regimen] 81 mg tablet,delayed release (DR/EC) 81 mg PO DAILY donepezil 10 mg tablet 20 mg PO DAILY Rx Instructions: with lunch insulin lispro 100 unit/mL insulin pen 1 sliding scale dose subcut [facility] Patient Comments: Use with meals based on PRE meal blood sugar SLIDING SCALE as needed #1 (1 unit for every 50 over 150) Max 20 units daily. nitroglycerin 0.4 mg tablet, sublingual 0.4 mg sublingual Q5-15M Qty: 25 3RF albuterol sulfate 2.5 mg /3 mL (0.083 %) solution for nebulization 2.5 mg inhalation Q8H PRN (Reason: Dyspnea, wheezing) Qty: 180 0RF hydrocortisone 2.5 % cream 1 applic topical BID PRN (Reason: skin irritation) Qty: 454 1RF Gemtesa 75 mg tablet 75 mg PO DAILY lidocaine [Lidoderm] 5 % adhesive patch,medicated 1 patch topical DAILY Rx Instructions: leave on most painful area for up to 12 hrs isosorbide mononitrate 30 mg tablet extended release 24 hr 30 mg PO BID Qty: 180 3RF ropinirole 1 mg tablet 1 mg PO QDAY Rx Instructions: 1mg at lunch and 2mg at HS duloxetine [Cymbalta] 30 mg capsule,delayed release(DR/EC) 30 mg PO BID Qty: 180 2RF ramelteon 8 mg tablet 8 mg PO QHS PRN (Reason: sleep) Qty: 90 1RF ropinirole 2 mg tablet 2 mg PO QHS Rx Instructions: 1mg at lunch and 2mg at HS sucralfate 1 gram tablet 1 g PO 4X/DAY modafinil 200 MG tablet 200 mg PO DAILY acetaminophen 500 MG tablet 1,000 mg PO TID PRN (Reason: pain -02/03) Qty: 1 0RF Rx Instructions: alternate with ibuprofen atorvastatin 40 mg tablet 40 mg PO QHS ascorbic acid (vitamin C) 500 mg tablet,chewable 500 mg PO DAILY Prolia 60 mg/mL syringe 60 mg subcut [id number] tizanidine 2 mg tablet 2 mg PO DAILY PRN (Reason: pain) Rx Instructions: TAKE 1 TABLET BY MOUTH EVERY MORNING and 1 to 2 TABLETS AT BEDTIME NEEDED FOR PAIN control clotrimazole-betamethasone 1-0.05 % cream 1 applic topical BID nystatin [Nystop] 100,000 unit/gram powder 1 applic topical BID nitrofurantoin monohyd/m-cryst 100 mg capsule 1 cap PO BID Mounjaro 10 mg/0.5 mL pen injector 10 mg subcut QWEEK tizanidine 2 mg tablet 2 - 4 mg PO QHS PRN (Reason: pain) Rx Instructions: TAKE 1 TABLET BY MOUTH EVERY MORNING and 1 to 2 TABLETS AT BEDTIME NEEDED FOR PAIN control quetiapine 100 mg tablet See Rx Instructions .ROUTE .COMPLEX Rx Instructions: To be taken with 100 mg tablet at bedtime for nightly dose of 125 mg qHS ondansetron HCl 4 mg tablet 4 mg PO Q8H PRN dicyclomine 20 mg tablet 20 mg PO BID fluorometholone 0.1 % drops,suspension 1 drp ophthalmic (eye) BID (DME) Accu-Chek Ada Plus test strp Strip See Rx Instructions .Route Qty: 100 6RF Rx Instructions: As directed pantoprazole 40 mg tablet,delayed release (DR/EC) 40 mg PO DAILY Qty: 90 1RF albuterol sulfate 90 mcg/actuation HFA aerosol inhaler 2 puff inhalation Q6H PRN (Reason: shortness of breath or wheezing) Qty: 8.5 2RF hydroxyzine HCl 50 mg tablet See Rx Instructions .ROUTE .COMPLEX Qty: 60 0RF Dose Instruction: TAKE 1 TABLET BY MOUTH TWICE DAILY NEEDED for itching Rx Instructions: TAKE 1 TABLET BY MOUTH TWICE DAILY NEEDED for itching Eliquis 5 mg tablet 5 mg PO BID Qty: 180 3RF carvedilol 12.5 mg tablet 12.5 mg PO BID Qty: 180 3RF Rx Instructions: must administer with a meal/food losartan 50 mg tablet 50 mg PO BID Qty: 180 3RF quetiapine 25 mg tablet 25 mg PO QHS Qty: 90 0RF Rx Instructions: To be taken with 100 mg tablet at bedtime for nightly dose of 125 mg qHS Discontinued oxycodone 5 mg capsule 5 mg PO DAILY PRN (Reason: pain) Referrals / Follow Up: [facility] [Provider Group] - Within 3 Months Carlton Rocha, [employer]ESSION[employer]-C [Primary Care Provider] - Within 2 Weeks Disposition Disposition (needs filled in before D/C Order can be placed): Home, Self Care Charges/Coding Visit Charges Inpatient E&M: 96360 Disch Hosp >30min
[2024-07-26 21:07] LABS: Deamidated Gliadin IgA 2 units (0-19); Deamidated Gliadin IgG 1 units (0-19); Endomysial Antibody IgA Negative (Negative); Immunoglobulin A 135 mg/dL (87-352); Immunoglobulin E 11 IU/mL (6-495); Immunoglobulin G 851 mg/dL (586-1602); Immunoglobulin M 43 mg/dL (26-217); t-Transglutaminase IgA <2 U/mL (0-3)
[2024-07-27 06:08] LABS: Beef <0.10 kU/L (Class 0); Chocolate <0.10 kU/L (Class 0); Codfish <0.10 kU/L (Class 0); Corn <0.10 kU/L (Class 0); Egg, Whole <0.10 kU/L (Class 0); Milk (Cow) <0.10 kU/L (Class 0); Mussels <0.10 kU/L (Class 0); Peanut <0.10 kU/L (Class 0); Pork <0.10 kU/L (Class 0); Salmon <0.10 kU/L (Class 0); Shrimp <0.10 kU/L (Class 0); Soybean <0.10 kU/L (Class 0); Tuna <0.10 kU/L (Class 0); Wheat <0.10 kU/L (Class 0)
== END 2024-07-24 19:45 | disposition home or self-care (01) | DRG 444 ==
LOC: ED 16:57 → MS3 20:22
PROVIDERS: Internal Medicine Gastroenterology; Admitting Provider Internal Medicine; Emergency Provider Emergency Medicine; PCP Nurse Practitioner Family
PROC: 0FC98ZZ Extirpation of Matter from Common Bile Duct, Via Natural or Artificial Opening Endoscopic (ICD-10-PCS; CPT 43260; principal; 2024-07-21 15:40)
DX: K83.8 Other specified diseases of biliary tract (principal); K85.30 Drug induced acute pancreatitis without necrosis or infection; I13.0 Hypertensive heart and chronic kidney disease with heart failure and stage 1 through stage 4 chronic kidney disease, or unspecified chronic kidney disease; F03.94 Unspecified dementia, unspecified severity, with anxiety; K86.1 Other chronic pancreatitis; I50.42 Chronic combined systolic (congestive) and diastolic (congestive) heart failure; F03.93 Unspecified dementia, unspecified severity, with mood disturbance; E11.22 Type 2 diabetes mellitus with diabetic chronic kidney disease; G25.81 Restless legs syndrome; I48.0 Paroxysmal atrial fibrillation; K86.89 Other specified diseases of pancreas; J44.9 Chronic obstructive pulmonary disease, unspecified; N18.30 Chronic kidney disease, stage 3 unspecified; K74.60 Unspecified cirrhosis of liver; F32.A Depression, unspecified; K80.51 Calculus of bile duct without cholangitis or cholecystitis with obstruction; E78.5 Hyperlipidemia, unspecified; F17.210 Nicotine dependence, cigarettes, uncomplicated; I25.5 Ischemic cardiomyopathy; Z79.4 Long term (current) use of insulin; G47.33 Obstructive sleep apnea (adult) (pediatric); K21.9 Gastro-esophageal reflux disease without esophagitis; I25.10 Atherosclerotic heart disease of native coronary artery without angina pectoris; K58.0 Irritable bowel syndrome with diarrhea; F41.9 Anxiety disorder, unspecified; M41.125 Adolescent idiopathic scoliosis, thoracolumbar region; K59.00 Constipation, unspecified; E11.65 Type 2 diabetes mellitus with hyperglycemia; G47.00 Insomnia, unspecified; Z95.5 Presence of coronary angioplasty implant and graft; Z79.85 Long-term (current) use of injectable non-insulin antidiabetic drugs; Z79.891 Long term (current) use of opiate analgesic; G89.29 Other chronic pain; Z79.01 Long term (current) use of anticoagulants; Z79.899 Other long term (current) drug therapy; Z86.19 Personal history of other infectious and parasitic diseases; Z87.440 Personal history of urinary (tract) infections; Z79.82 Long term (current) use of aspirin
CPT/HCPCS: 36415; 74018; 74181; 74330; 76000; 76705; 80053; 80307; 81001; 82653; 82784; 82785; 82787; 82962; 83516; 83690; 84165; 84443; 85025; 86003; 86005; 86036; 86037; 86225; 86235; 86255; 86301; 86334; 86671; 87086; 87088; 88108; 88304; 88305; 88313; 99285; 99406; C2625; A4216; J1610; J2405

== ENCOUNTER 2024-08-23 10:00 | Emergency (ER) | payer MEDICARE, MEDICAID, SELFPAY ==
[2016-07-13 11:45] VITALS: BMI 31.4
[2024-08-23] VITALS (10 sets, daily range): BP systolic 92–155; BP diastolic 45–77; PULSE 53–71; RESP 14–18; TEMP 36.4–37; O2SAT 96–99; BMI 29.2
--- NOTE | 2024-08-23 11:18 | EKG12_ITS ---
Test Reason : GENERAL Blood Pressure : */* mmHG Vent. Rate : 54 BPM Atrial Rate : 54 BPM P-R Int : 166 ms QRS Dur : 102 ms QT Int : 450 ms P-R-T Axes : 37 -26 88 degrees QTcB Int : 426 ms Sinus bradycardia Septal infarct , age undetermined Inferior infarct , age undetermined Abnormal ECG Confirmed by ALLAN WITT, DORYS ([id number]), art editor YUNG MUNGUIA ([id number]) on 08/24/2024 1:31:28 PM Referred By: Confirmed By: DORYS LEMUS MD
--- NOTE | 2024-08-23 11:19 | EDS_ITS ---
HPI History of Present Illness Chief Complaint: General Illness Informant: patient and EMS Narrative Narrative: 68-year-old female presenting to the emergency room with weakness. Patient with multiple medical problems recent admission for choledocholithiasis. Patient states that home health came this morning and she was feeling generally weak. She had her morning medications. She states that her blood pressure normally has a systolic of around 110 there is noted to be in the 90s. She states that her blood sugar was also elevated despite taking her insulin. Patient states that she is not experiencing any pain. She notes no bruising or falls or trauma . She denies any urinary symptoms. No vomiting or diarrhea. She states that she was on an antibiotic prescribed from her urologist (Dr. Jessica) but otherwise no new medications. She denies any change in the dosing of her medicines that she is aware of. She denies any urinary symptoms at the current time. 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) Major depression Typical atrial flutter Syncope Hyperlipemia Dermatitis Vitamin deficiency Fatigue Headache Closed injury of head Insomnia CKD (chronic kidney disease) stage 3, GFR 30-59 ml/min Anxiety and depression Cataracts, both eyes Osteoporosis Type 2 diabetes mellitus Chronic neck pain with history of cervical spinal surgery Anemia Mural thrombus of heart Hiatal hernia History of peptic ulcer disease Essential (primary) hypertension History of ST elevation myocardial infarction (STEMI) BRYAN (obstructive sleep apnea) Multiple sclerosis Cervical spinal stenosis IBS (irritable bowel syndrome) RLS (restless legs syndrome) Takotsubo syndrome Atherosclerotic heart disease of [place] coronary artery without angina pectoris Paroxysmal atrial fibrillation Left ventricular hypertrophy Nicotine abuse Chronic systolic (congestive) heart failure Ischemic cardiomyopathy Diabetes mellitus type 2 in nonobese Apical mural thrombus with acute ME Vitamin B12 deficiency Irritable bowel syndrome with diarrhea COPD (chronic obstructive pulmonary disease) Home Medications ?Medication ?Instructions ?Recorded ?Last Taken ?Type modafinil 200 mg tablet 200 mg PO DAILY to stay awak e 12/12/19 07/18/24 History acetaminophen 500 mg tablet 1,000 mg (2 x 500 mg) PO T ID PRN 07/29/20 07/18/24 Rx pain -02/03 #1 TAB cholecalciferol (vitamin D3) 125 125 mcg PO DAILY supp lement 11/05/21 07/18/24 History mcg (5,000 unit) capsule ferrous sulfate 325 mg (65 mg 325 mg PO DAILY suppleme nt 11/05/21 07/18/24 History iron) tablet aspirin 81 mg tablet,delayed 81 mg PO DAILY heart heal th 04/01/22 07/18/24 History release (Adult Aspirin Regimen) ascorbic acid (vitamin C) 500 mg 500 mg PO DAILY suppl ement 06/06/22 07/17/24 History chewable tablet atorvastatin 40 mg tablet 40 mg PO QHS cholesterol 02/1607/17/24 History denosumab 60 mg/mL subcutaneous 60 mg subcut [id number] bone health 06/06/22 01/22/24 History syringe (Prolia) albuterol sulfate 2.5 mg/3 mL 2.5 mg (3 mL) inhalation Q8H PRN 07/21/22 Unknown Rx (0.083 %) solution for nebulization Dyspnea, wheezing #180 mL blood sugar diagnostic (Accu-Chek #100 ea 07/29/22 Unk nown Rx Ada Plus test strips) pantoprazole 40 mg tablet,delayed 40 mg PO DAILY gerd #90 tabs 09/04/22 07/18/24 Rx release donepezil 10 mg tablet 20 mg PO DAILY 09/11/2206/26 History insulin lispro 100 unit/mL 1 sliding scale dose subcut QAC 09/11/22 07/12/24 History subcutaneous pen nitroglycerin 0.4 mg sublingual 0.4 mg sublingual Q5-1 5M #25 tabs 09/11/22 Unknown Rx tablet hydrocortisone 2.5 % topical cream 1 applic topical BI D PRN skin 09/12/22 Unknown Rx irritation #454 grams albuterol sulfate 90 mcg/actuation 2 puff inhalation Q 6H PRN 10/29/22 07/18/24 Rx aerosol inhaler shortness of breath or wheez ing #8.5 grams vibegron 75 mg tablet (Gemtesa) 75 mg PO DAILY 3 07/17/24 History isosorbide mononitrate 30 mg 30 mg PO BID heart #180 t abs 06/22/23 07/18/24 Rx tablet,extended release 24 hr lidocaine 5 % topical patch 1 patch topical DAILY 05/2907/15/24 History (Lidoderm) apixaban 5 mg tablet (Eliquis) 5 mg PO BID #180 tabs 0 10/02/23 07/18/24 Rx carvedilol 12.5 mg tablet 12.5 mg PO BID this is a dos e 11/23/23 07/21/24 Rx increase #180 tabs losartan 50 mg tablet 50 mg PO BID #180 tabs 12/1307/17/24 Rx ropinirole 2 mg tablet 2 mg PO QHS restless leg 09/1707/17/24 History sucralfate 1 gram tablet 1 g PO 4X/DAY reflux 4 07/18/24 History ramelteon 8 mg tablet 8 mg PO QHS PRN sleep #90 ta bs 05/03/24 07/17/24 Rx ropinirole 1 mg tablet 1 mg PO QDAY 05/03/24 History dicyclomine 20 mg tablet 20 mg PO BID 07/10/24 History fluorometholone 0.1 % eye 1 drp ophthalmic (eye) BID 0 07/10/24 07/18/24 History drops,suspension ondansetron HCl 4 mg tablet 4 mg PO Q8H PRN nausea and vomiting 07/10/24 07/18/24 History quetiapine 25 mg tablet 25 mg PO QHS #90 tabs 07/17/24 Rx clotrimazole-betamethasone 1 1 applic topical BID 06/2607/17/24 History %-0.05 % topical cream nitrofurantoin 1 cap PO BID 07/18/24 History monohydrate/macrocrystals 100 mg capsule nystatin 100,000 unit/gram topical 1 applic topical BI D 07/18/24 07/18/24 History powder (Nystop) quetiapine 100 mg tablet See Rx Instructions .Route . COMPLEX 07/18/24 07/17/24 History tirzepatide 10 mg/0.5 mL 10 mg subcut QWEEK 07/18/24 07/12/24 History subcutaneous pen injector (Mounjaro) tizanidine 2 mg tablet 2 - 4 mg PO QHS PRN pain 07/17/24 History tizanidine 2 mg tablet 2 mg PO DAILY PRN pain 07/1807/18/24 History duloxetine 30 mg capsule,delayed 30 mg PO BID mental h ealth #180 08/01/24 Unknown Rx release (Cymbalta) caps hydroxyzine HCl 50 mg tablet 50 mg PO BID PRN anxiety #60 tabs 08/01/24 Unknown
--- NOTE | 2024-08-23 11:19 | EX.ED.DYSGE1 ---
HPI History of Present Illness Chief Complaint: General Illness Informant: patient and EMS Narrative Narrative: 68-year-old female presenting to the emergency room with weakness. Patient with multiple medical problems recent admission for choledocholithiasis. Patient states that home health came this morning and she was feeling generally weak. She had her morning medications. She states that her blood pressure normally has a systolic of around 110 there is noted to be in the 90s. She states that her blood sugar was also elevated despite taking her insulin. Patient states that she is not experiencing any pain. She notes no bruising or falls or trauma. She denies any urinary symptoms. No vomiting or diarrhea. She states that she was on an antibiotic prescribed from her urologist (Dr. Jessica) but otherwise no new medications. She denies any change in the dosing of her medicines that she is aware of. She denies any urinary symptoms at the current time. 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) Major depression Typical atrial flutter Syncope Hyperlipemia Dermatitis Vitamin deficiency Fatigue Headache Closed injury of head Insomnia CKD (chronic kidney disease) stage 3, GFR 30-59 ml/min Anxiety and depression Cataracts, both eyes Osteoporosis Type 2 diabetes mellitus Chronic neck pain with history of cervical spinal surgery Anemia Mural thrombus of heart Hiatal hernia History of peptic ulcer disease Essential (primary) hypertension History of ST elevation myocardial infarction (STEMI) BRYAN (obstructive sleep apnea) Multiple sclerosis Cervical spinal stenosis IBS (irritable bowel syndrome) RLS (restless legs syndrome) Takotsubo syndrome Atherosclerotic heart disease of [place] coronary artery without angina pectoris Paroxysmal atrial fibrillation Left ventricular hypertrophy Nicotine abuse Chronic systolic (congestive) heart failure Ischemic cardiomyopathy Diabetes mellitus type 2 in nonobese Apical mural thrombus with acute MO Vitamin B12 deficiency Irritable bowel syndrome with diarrhea COPD (chronic obstructive pulmonary disease) Home Medications ?Medication ?Instructions ?Recorded ?Last Taken ?Type modafinil 200 mg tablet 200 mg PO DAILY to stay awake 12/12/19 07/18/24 History acetaminophen 500 mg tablet 1,000 mg (2 x 500 mg) PO TID PRN 07/29/20 07/18/24 Rx pain -02/03 #1 TAB cholecalciferol (vitamin D3) 125 125 mcg PO DAILY supplement 11/05/21 07/18/24 History mcg (5,000 unit) capsule ferrous sulfate 325 mg (65 mg 325 mg PO DAILY supplement 11/05/21 07/18/24 History iron) tablet aspirin 81 mg tablet,delayed 81 mg PO DAILY heart health 04/01/22 07/18/24 History release (Adult Aspirin Regimen) ascorbic acid (vitamin C) 500 mg 500 mg PO DAILY supplement 06/06/22 07/17/24 History chewable tablet atorvastatin 40 mg tablet 40 mg PO QHS cholesterol 06/06/22 07/17/24 History denosumab 60 mg/mL subcutaneous 60 mg subcut [id number] bone health 06/06/22 01/22/24 History syringe (Prolia) albuterol sulfate 2.5 mg/3 mL 2.5 mg (3 mL) inhalation Q8H PRN 07/21/22 Unknown Rx (0.083 %) solution for nebulization Dyspnea, wheezing #180 mL blood sugar diagnostic (Accu-Chek #100 ea 07/29/22 Unknown Rx Ada Plus test strips) pantoprazole 40 mg tablet,delayed 40 mg PO DAILY gerd #90 tabs 09/04/22 07/18/24 Rx release donepezil 10 mg tablet 20 mg PO DAILY 09/11/22 07/18/24 History insulin lispro 100 unit/mL 1 sliding scale dose subcut QAC 09/11/22 07/12/24 History subcutaneous pen nitroglycerin 0.4 mg sublingual 0.4 mg sublingual Q5-15M #25 tabs 09/11/22 Unknown Rx tablet hydrocortisone 2.5 % topical cream 1 applic topical BID PRN skin 09/12/22 Unknown Rx irritation #454 grams albuterol sulfate 90 mcg/actuation 2 puff inhalation Q6H PRN 10/29/22 07/18/24 Rx aerosol inhaler shortness of breath or wheezing #8.5 grams vibegron 75 mg tablet (Gemtesa) 75 mg PO DAILY 01/30/23 07/17/24 History isosorbide mononitrate 30 mg 30 mg PO BID heart #180 tabs 06/22/23 07/18/24 Rx tablet,extended release 24 hr lidocaine 5 % topical patch 1 patch topical DAILY 06/22/23 07/15/24 History (Lidoderm) apixaban 5 mg tablet (Eliquis) 5 mg PO BID #180 tabs 10/02/23 07/18/24 Rx carvedilol 12.5 mg tablet 12.5 mg PO BID this is a dose 11/23/23 07/21/24 Rx increase #180 tabs losartan 50 mg tablet 50 mg PO BID #180 tabs 12/14/23 07/17/24 Rx ropinirole 2 mg tablet 2 mg PO QHS restless leg 03/01/24 07/17/24 History sucralfate 1 gram tablet 1 g PO 4X/DAY reflux 03/01/24 07/18/24 History ramelteon 8 mg tablet 8 mg PO QHS PRN sleep #90 tabs 05/03/24 07/17/24 Rx ropinirole 1 mg tablet 1 mg PO QDAY 05/03/24 07/18/24 History dicyclomine 20 mg tablet 20 mg PO BID 07/10/24 07/18/24 History fluorometholone 0.1 % eye 1 drp ophthalmic (eye) BID 07/10/24 07/18/24 History drops,suspension ondansetron HCl 4 mg tablet 4 mg PO Q8H PRN nausea and vomiting 07/10/24 07/18/24 History quetiapine 25 mg tablet 25 mg PO QHS #90 tabs 07/12/24 07/17/24 Rx clotrimazole-betamethasone 1 1 applic topical BID 07/18/24 07/17/24 History %-0.05 % topical cream nitrofurantoin 1 cap PO BID 07/18/24 07/18/24 History monohydrate/macrocrystals 100 mg capsule nystatin 100,000 unit/gram topical 1 applic topical BID 07/18/24 07/18/24 History powder (Nystop) quetiapine 100 mg tablet See Rx Instructions .Route .COMPLEX 07/18/24 07/17/24 History tirzepatide 10 mg/0.5 mL 10 mg subcut QWEEK 07/18/24 07/12/24 History subcutaneous pen injector (Mounjaro) tizanidine 2 mg tablet 2 - 4 mg PO QHS PRN pain 07/18/24 07/17/24 History tizanidine 2 mg tablet 2 mg PO DAILY PRN pain 07/18/24 07/18/24 History duloxetine 30 mg capsule,delayed 30 mg PO BID mental health #180 08/01/24 Unknown Rx release (Cymbalta) caps hydroxyzine HCl 50 mg tablet 50 mg PO BID PRN anxiety #60 tabs 08/01/24 Unknown Rx Allergy/AdvReac Type Severity Reaction Status Date / Time vancomycin Allergy Severe Anaphylaxis Verified 08/23/24 10:02 indomethacin (From Indocin) Allergy Hives Verified 08/23/24 10:02 indomethacin sodium (From Allergy Hives Verified 08/23/24 10:02 Indocin) iodine Allergy Hives Verified 08/23/24 10:02 propoxyphene napsylate (From Allergy Out of Verified 08/23/24 10:02 Darvocet-N) control trazodone AdvReac Intermediate Other Verified 08/23/24 10:02 aripiprazole (From Abilify) AdvReac Other Verified 08/23/24 10:02 aspirin AdvReac Upset Verified 08/23/24 10:02 Stomach clindamycin AdvReac Nausea Verified 08/23/24 10:02 metformin AdvReac Other Verified 08/23/24 10:02 sumatriptan (From Imitrex) AdvReac Vomiting Verified 08/23/24 10:02 Family History Father Cancer Lung cancer Mother Cancer Pancreatic cancer Surgical History Hx of lumbosacral spine surgery Hx of bilateral cataract extraction (~03/2022) History of endoscopy History of left heart catheterization (09/25/20) History of loop recorder (06/2014) History of amputation of left great toe History of left knee surgery History of tonsillectomy and adenoidectomy History of back surgery History of cervical discectomy History of coronary artery stent placement (04/08/16) Social History household members: none housing: house Smoking Status: Current every day smoker tobacco type: cigarettes alcohol intake: never substance use type: does not use caffeine: Yes Type: coffee Number of servings: 1 what type of physical activity do you participate in: none and other details: Physical Therapy ROS ROS ED ROS Narrative Generalized weakness Constitutional Constitutional ED: Denies chills or weight loss Eyes Eyes: Denies change in vision or diplopia ENT ENT ED: Reports other Details: Dry mouth ; Denies ear pain, rhinorrhea or sore throat Cardiovascular Cardiovascular: Denies chest pain, orthopnea, palpitations or racing heartbeat Respiratory/Chest Respiratory/Chest: Denies cough, dyspnea or orthopnea Gastrointestinal Gastrointestinal: Denies abdominal pain, diarrhea, nausea or vomiting Genitourinary Genitourinary ED: Denies dysuria, hematuria or urinary frequency Musculoskeletal Musculoskeletal: Denies arthralgias or myalgias Integumentary Denies abscess or rash Neurologic Neurologic: Denies headache(s) or weakness Psychiatric Psychiatric: Denies anxiety, depression, suicidal ideation or suicidal thoughts Endocrine Endocrinology: Denies polydipsia, polyphagia or polyuria Allergic/Immunologic Allergic/Immunologic ED: Denies mouth swelling, tongue swelling or urticaria EXAM Physical Exam Const Vital Signs: 08/23/24 10:02 08/23/24 10:06 08/23/24 10:06 Temperature 98.6 F 97.6 F L Temperature Source Oral Oral Pulse Rate 61 62 Pulse Rate [Lying] Pulse Rate [Sitting (for 1 minute prior to obtaining)] Pulse Rate [Standing (for 1 minute prior to obtaining)] Respiratory Rate 18 18 Respiratory Effort Normal Respiratory Pattern Normal Blood Pressure 92/45 L 92/45 L Blood Pressure [Lying] Blood Pressure [Sitting (for 1 minute prior to obtaining)] Blood Pressure [Standing (for 1 minute prior to obtaining)] Blood Pressure Mean 60 60 Blood Pressure Mean [Lying] Blood Pressure Mean [Sitting (for 1 minute prior to obtaining)] Blood Pressure Mean [Standing (for 1 minute prior to obtaining)] Pulse Ox 96 96 Oxygen Delivery Method Room Air Room Air 08/23/24 11:06 08/23/24 11:47 08/23/24 12:01 Temperature 97.6 F L Temperature Source Oral Pulse Rate 55 L 53 L Pulse Rate [Lying] 55 L Pulse Rate [Sitting (for 1 minute prior to obtaining)] 55 L Pulse Rate [Standing (for 1 minute prior to obtaining)] 56 L Respiratory Rate 15 Respiratory Effort Respiratory Pattern Blood Pressure 127/58 H 134/75 H Blood Pressure [Lying] 107/58 L Blood Pressure [Sitting (for 1 minute prior to obtaining)] 147/77 H Blood Pressure [Standing (for 1 minute prior to obtaining)] 155/77 H Blood Pressure Mean 81 94 Blood Pressure Mean [Lying] 74 Blood Pressure Mean [Sitting (for 1 minute prior to obtaining)] 100 Blood Pressure Mean [Standing (for 1 minute prior to obtaining)] 103 Pulse Ox 98 99 Oxygen Delivery Method Room Air Room Air 08/23/24 12:06 08/23/24 13:00 08/23/24 14:00 Temperature 97.6 F L 97.6 F L Temperature Source Oral Oral Pulse Rate 54 L 57 L 55 L Pulse Rate [Lying] Pulse Rate [Sitting (for 1 minute prior to obtaining)] Pulse Rate [Standing (for 1 minute prior to obtaining)] Respiratory Rate 14 16 Respiratory Effort Respiratory Pattern Blood Pressure 134/75 H 118/59 L 133/75 H Blood Pressure [Lying] Blood Pressure [Sitting (for 1 minute prior to obtaining)] Blood Pressure [Standing (for 1 minute prior to obtaining)] Blood Pressure Mean 94 78 94 Blood Pressure Mean [Lying] Blood Pressure Mean [Sitting (for 1 minute prior to obtaining)] Blood Pressure Mean [Standing (for 1 minute prior to obtaining)] Pulse Ox 98 99 Oxygen Delivery Method Room Air Room Air 08/23/24 16:00 Temperature Temperature Source Pulse Rate 66 Pulse Rate [Lying] Pulse Rate [Sitting (for 1 minute prior to obtaining)] Pulse Rate [Standing (for 1 minute prior to obtaining)] Respiratory Rate Respiratory Effort Respiratory Pattern Blood Pressure 136/64 H Blood Pressure [Lying] Blood Pressure [Sitting (for 1 minute prior to obtaining)] Blood Pressure [Standing (for 1 minute prior to obtaining)] Blood Pressure Mean 88 Blood Pressure Mean [Lying] Blood Pressure Mean [Sitting (for 1 minute prior to obtaining)] Blood Pressure Mean [Standing (for 1 minute prior to obtaining)] Pulse Ox 96 Oxygen Delivery Method Room Air Positive well nourished and well developed General Appearance ED: well developed HEENT Reports normocephalic, head/scalp atraumatic and moist mucous membranes Eyes PERRL and EOMs intact bilaterally Neck no lymphadenopathy, supple and no JVD Resp normal respiratory effort and clear to auscultation bilaterally Cardio regular rate, regular rhythm and no murmurs GI normal to inspection, nondistended, normoactive bowel sounds and non-tender Palpation: soft Back/Spine no CVA tenderness and normal ROM Extremity normal to inspection General Extremety ED: Negative for edema General Extremity: Negative for edema Neuro oriented x3 and CN's II-XII intact bilaterally Sensorium / Orientation: alert Motor Exam: strength 5/5 throughout Psych mental status grossly normal Mood & Affect: Negative for depressed or tearful Skin no rashes or lesions noted Skin Narrative: Patient has numerous scabbed sores on her face and neck. These appear without secondary infection. MDM MDM MDM Narrative Medical decision making narrative: Differential diagnosis includes anemia blood loss anemia hypovolemia acute kidney injury medication-induced hypotension UTI or acute coronary syndrome sepsis White count is 8.6 hemoglobin is 11.3 platelet count of 402 BMP with a creatinine 0.73 BUN of 20 normal electrolytes. Normal LFTs except for an alk phos of 178. Lactic acid is 1.4. Urinalysis with no overt infection my independent interpretation of the chest x-ray is cardiomegaly no acute findings. Initial troponin is 15. Second troponin is 11 Patient received IV fluids. She is not orthostatic. Blood pressure has been stable following her first couple hypotensive readings. At this point I think the patient can be discharged home. I would encourage her to check her blood pressure again tomorrow before she takes her morning blood pressure pills. History & Record Review Discussion w/independent historian: Patient Additional record(s) reviewed:: Prior inpatient record, Prior ED visit and Prior labs Lab Data Attestation: I reviewed the patient's lab results. Labs: Laboratory Results - last 24 hr 08/23/24 08/23/24 08/23/24 11:45 12:17 12:31 WBC 8.6 RBC 4.01 L Hgb 11.3 L Hct 36.2 L MCV 90.3 MCH 28.2 MCHC 31.2 L RDW Std Deviation 46.5 H RDW Coeff of [place] 14.0 Plt Count 402 MPV 9.0 Immature Gran % (Auto) 0.400 Neut % (Auto) 71.8 H Lymph % (Auto) 16.0 L [place] % (Auto) 8.6 Eos % (Auto) 2.3 Baso % (Auto) 0.9 Absolute Neuts (auto) 6.2 Absolute Lymphs (auto) 1.37 Nucleated RBC % 0 PT 13.3 INR 1.0 APTT 26.7 Sodium 136 Potassium 3.8 Chloride 102 Carbon Dioxide 25.3 Anion Gap 9 BUN 20 H Creatinine 0.73 Estim Creat Clear Calc 61.92 Est GFR (MDRD) Non-Af 89 BUN/Creatinine Ratio 27.1 H Glucose 66 L Lactic Acid 1.4 Calcium 9.1 Total Bilirubin < 0.15 Direct Bilirubin 0.12 AST 17 ALT 12 Alkaline Phosphatase 178 H Troponin T High Sens Troponin T Hi Sens 2 Hr Total Protein 6.5 Albumin 3.4 Globulin 3.1 Urine Color Yellow Urine Clarity Clear Urine pH 6.5 Ur Specific [place] 1.010 Urine Protein 15 H Urine Glucose (UA) Normal Urine Ketones Negative Urine Occult Blood Negative Urine Nitrite Negative Urine Bilirubin Negative Urine Urobilinogen Normal Ur Leukocyte Esterase 500 H Urine RBC 0 SEEN Urine WBC 0-5 SEEN Ur Squamous Epith Cells 0-5 SEEN Urine Bacteria 0 SEEN Hyaline Casts 0-5 SEEN Urine Mucus 0 SEEN POC Glucose 84 08/23/24 08/23/24 13:50 15:44 WBC RBC Hgb Hct MCV MCH MCHC RDW Std Deviation RDW Coeff of [place] Plt Count MPV Immature Gran % (Auto) Neut % (Auto) Lymph % (Auto) [place] % (Auto) Eos % (Auto) Baso % (Auto) Absolute Neuts (auto) Absolute Lymphs (auto) Nucleated RBC % PT INR APTT Sodium Potassium Chloride Carbon Dioxide Anion Gap BUN Creatinine Estim Creat Clear Calc Est GFR (MDRD) Non-Af BUN/Creatinine Ratio Glucose Lactic Acid Calcium Total Bilirubin Direct Bilirubin AST ALT Alkaline Phosphatase Troponin T High Sens 15 H D Troponin T Hi Sens 2 Hr 11 Total Protein Albumin Globulin Urine Color Urine Clarity Urine pH Ur Specific [place] Urine Protein Urine Glucose (UA) Urine Ketones Urine Occult Blood Urine Nitrite Urine Bilirubin Urine Urobilinogen Ur Leukocyte Esterase Urine RBC Urine WBC Ur Squamous Epith Cells Urine Bacteria Hyaline Casts Urine Mucus POC Glucose Radiography Diagnostic Testing: Clinical Impression(s) from Imaging Studies Chest X-Ray 08/23/24 12:00 IMPRESSION: 1. Borderline mild cardiomegaly and central vascular prominence without overt pulmonary edema. 2. Additional description as above. Reading Location: [facility] EKG Initial EKG: Attestation: I personally reviewed and interpreted this EKG as follows: Comments: Sinus bradycardia ventricular to 54 bpm Discharge Plan Triage Chief Complaint: General Illness ED Provider: Cheko Ortiz Dx/Rx/DC Orders Clinical Impression: Acute hypotension, Weakness Instructions: Hypotension Dc Prescriptions: No Action cholecalciferol (vitamin D3) 125 mcg (5,000 unit) capsule 125 mcg PO DAILY ferrous sulfate 325 mg (65 mg iron) tablet 325 mg PO DAILY aspirin [Adult Aspirin Regimen] 81 mg tablet,delayed release (DR/EC) 81 mg PO DAILY donepezil 10 mg tablet 20 mg PO DAILY Rx Instructions: with lunch insulin lispro 100 unit/mL insulin pen 1 sliding scale dose subcut QA Patient Comments: Use with meals based on PRE meal blood sugar SLIDING SCALE as needed #1 (1 unit for every 50 over 150) Max 20 units daily. nitroglycerin 0.4 mg tablet, sublingual 0.4 mg sublingual Q5-15M Qty: 25 3RF albuterol sulfate 2.5 mg /3 mL (0.083 %) solution for nebulization 2.5 mg inhalation Q8H PRN (Reason: Dyspnea, wheezing) Qty: 180 0RF hydrocortisone 2.5 % cream 1 applic topical BID PRN (Reason: skin irritation) Qty: 454 1RF Gemtesa 75 mg tablet 75 mg PO DAILY lidocaine [Lidoderm] 5 % adhesive patch,medicated 1 patch topical DAILY Rx Instructions: leave on most painful area for up to 12 hrs isosorbide mononitrate 30 mg tablet extended release 24 hr 30 mg PO BID Qty: 180 3RF ropinirole 1 mg tablet 1 mg PO QDAY Rx Instructions: 1mg at lunch and 2mg at HS ramelteon 8 mg tablet 8 mg PO QHS PRN (Reason: sleep) Qty: 90 1RF ropinirole 2 mg tablet 2 mg PO QHS Rx Instructions: 1mg at lunch and 2mg at HS sucralfate 1 gram tablet 1 g PO 4X/DAY hydroxyzine HCl 50 mg tablet 50 mg PO BID PRN (Reason: anxiety) Qty: 60 1RF duloxetine [Cymbalta] 30 mg capsule,delayed release(DR/EC) 30 mg PO BID Qty: 180 2RF modafinil 200 MG tablet 200 mg PO DAILY acetaminophen 500 MG tablet 1,000 mg PO TID PRN (Reason: pain 1-02/03) Qty: 1 0RF Rx Instructions: alternate with ibuprofen atorvastatin 40 mg tablet 40 mg PO QHS ascorbic acid (vitamin C) 500 mg tablet,chewable 500 mg PO DAILY Prolia 60 mg/mL syringe 60 mg subcut [id number] tizanidine 2 mg tablet 2 mg PO DAILY PRN (Reason: pain) Rx Instructions: TAKE 1 TABLET BY MOUTH EVERY MORNING and 1 to 2 TABLETS AT BEDTIME NEEDED FOR PAIN control clotrimazole-betamethasone 1-0.05 % cream 1 applic topical BID nystatin [Nystop] 100,000 unit/gram powder 1 applic topical BID nitrofurantoin monohyd/m-cryst 100 mg capsule 1 cap PO BID Mounjaro 10 mg/0.5 mL pen injector 10 mg subcut QWEEK tizanidine 2 mg tablet 2 - 4 mg PO QHS PRN (Reason: pain) Rx Instructions: TAKE 1 TABLET BY MOUTH EVERY MORNING and 1 to 2 TABLETS AT BEDTIME NEEDED FOR PAIN control quetiapine 100 mg tablet See Rx Instructions .ROUTE .COMPLEX Rx Instructions: To be taken with 100 mg tablet at bedtime for nightly dose of 125 mg qHS ondansetron HCl 4 mg tablet 4 mg PO Q8H PRN dicyclomine 20 mg tablet 20 mg PO BID fluorometholone 0.1 % drops,suspension 1 drp ophthalmic (eye) BID (DME) Accu-Chek Ada Plus test strp Strip See Rx Instructions .Route Qty: 100 6RF Rx Instructions: As directed pantoprazole 40 mg tablet,delayed release (DR/EC) 40 mg PO DAILY Qty: 90 1RF albuterol sulfate 90 mcg/actuation HFA aerosol inhaler 2 puff inhalation Q6H PRN (Reason: shortness of breath or wheezing) Qty: 8.5 2RF Eliquis 5 mg tablet 5 mg PO BID Qty: 180 3RF carvedilol 12.5 mg tablet 12.5 mg PO BID Qty: 180 3RF Rx Instructions: must administer with a meal/food losartan 50 mg tablet 50 mg PO BID Qty: 180 3RF quetiapine 25 mg tablet 25 mg PO QHS Qty: 90 0RF Rx Instructions: To be taken with 100 mg tablet at bedtime for nightly dose of 125 mg qHS Primary Care Provider: Carlton Rocha Referrals: Carlton Rocha, [facility] [Primary Care Provider] - Activity Restrictions/Additional Instructions: Before taking your morning blood pressure medication would make sure that your blood pressure is not low. Please follow-up with your primary care doctor if you continue to have lower than expected blood pressure readings or return to emergency. Print Language: Romansh Disposition Disposition: Home, Self Care
[2024-08-23 12:00] LABS: Absolute Lymphocyte Count 1.37 X10^3/uL (0.83-4.51); Absolute Neutrophil Count 6.2 X10^3/uL (2.0-7.7); Basophil# 0.08 X10^3/uL; Basophil% 0.9 % (0-1); Eosinophils% 2.3 % (0-5); Hematocrit 36.2 % (37-47); Hemoglobin 11.3 g/dL (12.0-15.0); Lymphocyte # 1.37 X10^3/ul (0.83-4.51); Mean Corp Hgb Conc 31.2 g/dL (32-36); Mean Corpuscular Hgb 28.2 pg (27.0-32.0); Mean Corpuscular Volume 90.3 fL (81-99); Monocyte# 0.74 X10^3/uL; Monocyte% 8.6 % (0-10); NRBC Flagged by Analyzer 0 % (0-5); Neutrophil # 6.15 X10^3/uL (2.7-7.7); Neutrophil % 71.8 % (47-70); Platelet Count 402 K/mm3 (150-450); RBC Distribution Width SD 46.5 fl (35.1-43.9); Red Blood Count 4.01 M/mm3 (4.2-5.4); White Blood Count 8.6 K/mm3 (4.4-11.0)
--- NOTE | 2024-08-23 12:00 | RAD_ITS ---
PROCEDURE: CHEST 1 VIEW (PORTABLE) (RADCXPA_P), 08/23/2024 REASON FOR EXAM: HYPOTENSION TECHNIQUE: A single portable AP view of the chest was obtained. COMPARISON: 06/25/2024 FINDINGS: Patient is slightly RIGHT rotated. Heart: Borderline mild cardiomegaly. Mediastinum: Grossly similar contours allowing for slight rotation. Borderline mild central vascular prominence. Lungs/pleura: No focal consolidation. No sizeable pleural effusion or visible pneumothorax. Bones: Partially imaged cervical spinal fusion. Mild thoracic levoscoliosis.. Suspect demineralization. Lines and support devices: None. Other: None. RAD/Chest 1 View (Portable) IMPRESSION: 1. Borderline mild cardiomegaly and central vascular prominence without overt p ulmonary edema. 2. Additional description as above. Reading Location: [id number]
[2024-08-23 12:08] LABS: Prothrombin Time (Protime)PT. 13.3 SECONDS (11.7-14.9)
[2024-08-23 12:09] LABS: Partial Thromboplast Time 26.7 Seconds (24.1-36.2)
[2024-08-23] MEDS: 0.9% Normal Saline (1000mL) 1,000 ML 1000 ML IV ×2 (12:18→13:33)
[2024-08-23 12:23] LABS: Bacteria 0 SEEN /hpf (None Seen); Mucous, Urine 0 SEEN /hpf (<or=2+); Red Blood Cells-Urine 0 SEEN /hpf (0-5)
[2024-08-23 12:24] LABS: Color, Urine Yellow (Yellow); Glucose, Dipstick Normal (Normal); Ketone-Dipstick Negative (Negative); Leukocyte Esterase-Dipstick 500 /ul (Negative); Nitrite-Dipstick Negative (Negative); Occult Blood-Urine Negative /ul (Negative); Protein-Dipstick 15 mg/dl (Negative); Urine Bilirubin Dipstick Negative (Negative); Urine Clarity Clear (Clear); Urine Urobilinogen Normal (Normal); Urine pH 6.5 (5.0 - 8.0)
[2024-08-23 12:24] LABS: Lactic Acid 1.4 mmol/L (0.0-2.0)
[2024-08-23 12:26] LABS: AST(SGOT) 17 U/L (<=31); Alanine Aminotransfer ALT/SGPT 12 U/L (<=34); Albumin, Serum 3.4 g/dL (3.4-4.8); Alkaline Phosphatase 178 U/L (35-104); Anion Gap 9 (5-15); BUN 20 mg/dL (4-19); BUN/Creat Ratio 27.1 RATIO (10-20); Bilirubin, Direct 0.12 mg/dL (0.00-0.30); Calcium,Total 9.1 mg/dL (7.6-11.0); Carbon Dioxide 25.3 mmol/L (21.0-32.0); Chloride 102 mmol/L (98-108); Creatinine, Serum 0.73 mg/dL (0.70-1.20); EST Glomerular Filtration Rate 89 (>60); Estimated Creatinine Clearance 61.92 ml/min (50-250); Globulin 3.1 g/dL (2.2-4.2); Glucose 66 mg/dL (70-99); Potassium 3.8 mmol/L (3.3-5.1); Protein, Total 6.5 g/dL (5.9-8.4); Sodium Level 136 mmol/L (133-145); Total Bilirubin < 0.15 mg/dL (0.00-1.30)
[2024-08-23 12:52] LABS: Bedside Glucose 84 mg/dL (74-106)
[2024-08-23 13:05] LABS: Squamous Epithelial Cells - UA 0-5 SEEN /hpf (5-10); White Blood Cells 0-5 SEEN /hpf (0-5)
[2024-08-23 13:06] LABS: Hyaline Cast 0-5 SEEN /lpf (0-5)
[2024-08-23 14:20] LABS: Troponin T High Sensitivity 15 ng/L (<=14)
[2024-08-23 16:31] LABS: Troponin T High Sens 2 HR 11 ng/L (<=14)
== END 2024-08-23 17:12 | disposition home or self-care (01) ==
PROVIDERS: Emergency Provider Emergency Medicine; PCP Nurse Practitioner Family; Visit Provider Emergency Medicine
DX: I95.9 Hypotension, unspecified (principal); G35 Multiple sclerosis; I13.0 Hypertensive heart and chronic kidney disease with heart failure and stage 1 through stage 4 chronic kidney disease, or unspecified chronic kidney disease; I50.22 Chronic systolic (congestive) heart failure; J44.9 Chronic obstructive pulmonary disease, unspecified; I48.0 Paroxysmal atrial fibrillation; Z79.4 Long term (current) use of insulin; E11.22 Type 2 diabetes mellitus with diabetic chronic kidney disease; N18.30 Chronic kidney disease, stage 3 unspecified; R53.1 Weakness; I25.10 Atherosclerotic heart disease of native coronary artery without angina pectoris; I25.2 Old myocardial infarction; E78.5 Hyperlipidemia, unspecified; F17.210 Nicotine dependence, cigarettes, uncomplicated; Z95.5 Presence of coronary angioplasty implant and graft; Z79.01 Long term (current) use of anticoagulants; Z79.82 Long term (current) use of aspirin; Z79.85 Long-term (current) use of injectable non-insulin antidiabetic drugs; Z79.899 Other long term (current) drug therapy
CPT/HCPCS: 71045; 80048; 80076; 81001; 82962; 83605; 84484; 85025; 85610; 85730; 93005; 96360; 96361; 99285; A4216

== ENCOUNTER 2024-09-06 16:39 | Emergency (ER) | payer MEDICARE, MEDICAID, SELFPAY ==
[2016-07-13 11:45] VITALS: BMI 31.4
[2024-09-06] VITALS (19 sets, daily range): BP systolic 122–158; BP diastolic 58–98; PULSE 70–94; RESP 9–35; TEMP 37.1; O2SAT 80–100; BMI 27.0
--- NOTE | 2024-09-06 16:51 | EKG12_ITS ---
Test Reason : CP Blood Pressure : */* mmHG Vent. Rate : 79 BPM Atrial Rate : 79 BPM P-R Int : 154 ms QRS Dur : 94 ms QT Int : 364 ms P-R-T Axes : 60 -37 94 degrees QTcB Int : 417 ms Normal sinus rhythm Left axis deviation Septal infarct (cited on or before 21-Oct-2016) Inferior infarct (cited on or before 21-Oct-2016) Abnormal ECG Confirmed by Navdeep Rashid ([id number]), offline editor ARABELLA CHRISTIANSON ([id number]) on 09/08/2024 10:01:47 AM Referred By: Confirmed By: Navdeep Rashid
--- NOTE | 2024-09-06 17:02 | ED.VIS.CHEST ---
HPI History of Present Illness Chief Complaint: Chest Pain Informant: patient Onset/Context/Timing Onset: Today Activity at onset: sudden Timing: Intermittent Quality: Positive for Aching Location: Substernal Current Severity: Gone Maximum Severity: Mild Worsened By: Exertion Relieved By: Nothing Associated Symptoms: Positive for Nausea Narrative Narrative: 68-year-old female history of prior IA with stent, diabetes, CKD, A-fib on Eliquis, cardiomyopathy, MS pulm pancreatic stent. Patient states she was walking in her house going up a ramp. Around 3:10 PM developed some chest discomfort midsternal rating to both sides. She took 3 baby aspirin at home and 3 sublingual nitroglycerin. Currently is pain-free. Send her initial blood pressure was 189/101. Currently she is symptom-free. She did have associated nausea. No diarrhea or fever. She has had pain like this before. Prior Similar Symptoms: Yes Recent Illness/Hospitalization: No CVD Risk Factors: Positive for Diabetes PE Risk Factors: Negative for Recent Travel/Surgery, Recent Immobilization, Prior DVT or PE, Cancer or OCP + Smoking + >/=35 TAD Risk Factors: Negative for Marfan's Syndrome [facility] Medical History History of multiple sclerosis Hyperkalemia Chronic anticoagulation Hiatal hernia Chronic back pain Irritable bowel syndrome with diarrhea 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) Major depression Typical atrial flutter Syncope Hyperlipemia Dermatitis Vitamin deficiency Fatigue Headache Closed injury of head Insomnia CKD (chronic kidney disease) stage 3, GFR 30-59 ml/min Anxiety and depression Cataracts, both eyes Osteoporosis Type 2 diabetes mellitus Chronic neck pain with history of cervical spinal surgery Anemia Mural thrombus of heart Hiatal hernia History of peptic ulcer disease Essential (primary) hypertension History of ST elevation myocardial infarction (STEMI) BRYAN (obstructive sleep apnea) Multiple sclerosis Cervical spinal stenosis IBS (irritable bowel syndrome) RLS (restless legs syndrome) Takotsubo syndrome Atherosclerotic heart disease of hopi coronary artery without angina pectoris Paroxysmal atrial fibrillation Left ventricular hypertrophy Nicotine abuse Chronic systolic (congestive) heart failure Ischemic cardiomyopathy Diabetes mellitus type 2 in nonobese Apical mural thrombus with acute IA Vitamin B12 deficiency Irritable bowel syndrome with diarrhea COPD (chronic obstructive pulmonary disease) Home Medications ?Medication ?Instructions ?Recorded ?Last Taken ?Type modafinil 200 mg tablet 200 mg PO DAILY FATIGUE 12/12/19 09/06/24 History acetaminophen 500 mg tablet 1,000 mg (2 x 500 mg) PO TID PRN 07/29/20 07/18/24 Rx pain -02/03 #1 TAB cholecalciferol (vitamin D3) 125 125 mcg PO DAILY supplement 11/05/21 09/06/24 History mcg (5,000 unit) capsule ferrous sulfate 325 mg (65 mg 325 mg PO DAILY supplement 11/05/21 09/06/24 History iron) tablet aspirin 81 mg tablet,delayed 81 mg PO DAILY heart health 04/01/22 09/06/24 History release (Adult Aspirin Regimen) ascorbic acid (vitamin C) 500 mg 500 mg PO DAILY supplement 06/06/22 09/06/24 History chewable tablet atorvastatin 40 mg tablet 40 mg PO QHS cholesterol 06/06/22 09/05/24 History denosumab 60 mg/mL subcutaneous 60 mg subcut [id number] bone health 06/06/22 07/21/24 History syringe (Prolia) albuterol sulfate 2.5 mg/3 mL 2.5 mg (3 mL) inhalation Q8H PRN 07/21/22 Unknown Rx (0.083 %) solution for nebulization Dyspnea, wheezing #180 mL blood sugar diagnostic (Accu-Chek #100 ea 07/29/22 Unknown Rx Ada Plus test strips) pantoprazole 40 mg tablet,delayed 40 mg PO DAILY gerd #90 tabs 09/04/22 09/06/24 Rx release donepezil 10 mg tablet 20 mg PO DAILY 09/11/22 09/06/24 History insulin lispro 100 unit/mL 1 sliding scale dose subcut QAC 09/11/22 09/06/24 History subcutaneous pen nitroglycerin 0.4 mg sublingual 0.4 mg sublingual Q5-15M #25 tabs 09/11/22 Unknown Rx tablet hydrocortisone 2.5 % topical cream 1 applic topical BID PRN skin 09/12/22 Unknown Rx irritation #454 grams albuterol sulfate 90 mcg/actuation 2 puff inhalation Q6H PRN 10/29/22 07/18/24 Rx aerosol inhaler shortness of breath or wheezing #8.5 grams vibegron 75 mg tablet (Gemtesa) 75 mg PO DAILY 01/30/23 09/06/24 History isosorbide mononitrate 30 mg 30 mg PO BID heart #180 tabs 06/22/23 09/06/24 Rx tablet,extended release 24 hr lidocaine 5 % topical patch 1 patch topical DAILY 06/22/23 09/06/24 History (Lidoderm) carvedilol 12.5 mg tablet 12.5 mg PO BID this is a dose 11/23/23 09/06/24 Rx increase #180 tabs ropinirole 2 mg tablet 2 mg PO QHS restless leg 03/01/24 09/05/24 History sucralfate 1 gram tablet 1 g PO 4X/DAY reflux 03/01/24 09/06/24 History ramelteon 8 mg tablet 8 mg PO QHS PRN sleep #90 tabs 05/03/24 09/05/24 Rx ropinirole 1 mg tablet 1 mg PO QDAY 05/03/24 09/06/24 History dicyclomine 20 mg tablet 20 mg PO BID 07/10/24 09/06/24 History fluorometholone 0.1 % eye 1 drp ophthalmic (eye) BID 07/10/24 09/06/24 History drops,suspension ondansetron HCl 4 mg tablet 4 mg PO Q8H PRN nausea and vomiting 07/10/24 07/18/24 History quetiapine 25 mg tablet 25 mg PO QHS #90 tabs 07/12/24 09/05/24 Rx clotrimazole-betamethasone 1 1 applic topical BID 07/18/24 09/06/24 History %-0.05 % topical cream nystatin 100,000 unit/gram topical 1 applic topical BID 07/18/24 09/06/24 History powder (Nystop) quetiapine 100 mg tablet See Rx Instructions .Route .COMPLEX 07/18/24 09/05/24 History tizanidine 2 mg tablet 2 - 4 mg PO QHS PRN pain 07/18/24 09/05/24 History tizanidine 2 mg tablet 2 mg PO DAILY PRN pain 07/18/24 09/06/24 History duloxetine 30 mg capsule,delayed 30 mg PO BID mental health #180 08/01/24 09/06/24 Rx release (Cymbalta) caps hydroxyzine HCl 50 mg tablet 50 mg PO BID PRN anxiety #60 tabs 08/01/24 Unknown Rx losartan 50 mg tablet 50 mg PO QDAY #180 tabs 08/24/24 09/06/24 Rx apixaban 5 mg tablet (Eliquis) 5 mg PO BID #180 tabs 08/31/24 09/06/24 Rx pioglitazone 30 mg tablet 30 mg PO DAILY 09/06/24 09/06/24 History sulfamethoxazole 800 1 tab PO BID 09/06/24 09/06/24 History mg-trimethoprim 160 mg tablet tirzepatide 12.5 mg/0.5 mL 12.5 mg subcut TU 09/06/24 09/06/24 History subcutaneous pen injector (Aston) Allergy/AdvReac Type Severity Reaction Status Date / Time vancomycin Allergy Severe Anaphylaxis Verified 09/06/24 16:42 indomethacin (From Indocin) Allergy Hives Verified 09/06/24 16:42 indomethacin sodium (From Allergy Hives Verified 09/06/24 16:42 Indocin) iodine Allergy Hives Verified 09/06/24 16:42 propoxyphene napsylate (From Allergy Out of Verified 09/06/24 16:42 Darvocet-N) control trazodone AdvReac Intermediate Other Verified 09/06/24 16:42 aripiprazole (From Abilify) AdvReac Other Verified 09/06/24 16:42 aspirin AdvReac Upset Verified 09/06/24 16:42 Stomach clindamycin AdvReac Nausea Verified 09/06/24 16:42 metformin AdvReac Other Verified 09/06/24 16:42 sumatriptan (From Imitrex) AdvReac Vomiting Verified 09/06/24 16:42 Family History Father Cancer Lung cancer Mother Cancer Pancreatic cancer Surgical History Hx of lumbosacral spine surgery Hx of bilateral cataract extraction (~03/2022) History of endoscopy History of left heart catheterization (09/25/20) History of loop recorder (06/2014) History of amputation of left great toe History of left knee surgery History of tonsillectomy and adenoidectomy History of back surgery History of cervical discectomy History of coronary artery stent placement (12/13/16) Social History household members: none housing: house Smoking Status: Current every day smoker tobacco type: cigarettes alcohol intake: never substance use type: does not use caffeine: Yes Type: coffee Number of servings: 1 what type of physical activity do you participate in: none and other details: Physical Therapy ROS ROS ED ROS Narrative Chest pain. Nausea. Constitutional Constitutional ED: Denies chills or fever(s) Eyes Eyes: Reports none ENT ENT ED: Denies ear pain Cardiovascular Cardiovascular: Reports as per HPI and chest pain; Denies palpitations or racing heartbeat Respiratory/Chest Respiratory/Chest: Denies cough or dyspnea Gastrointestinal Gastrointestinal: Reports nausea and vomiting; Denies abdominal pain, constipation, diarrhea or melena Genitourinary Genitourinary ED: Denies dysuria or hematuria Musculoskeletal Musculoskeletal: Denies arthralgias Integumentary Denies abscess Neurologic Neurologic: Denies headache(s) Psychiatric Psychiatric: Denies anxiety Endocrine Endocrinology: Denies cold intolerance Hematologic/Lymphatic Hematologic/Lymphatic: Denies lymphadenopathy Allergic/Immunologic Allergic/Immunologic ED: Denies mouth swelling, tongue swelling or urticaria EXAM Physical Exam Narrative Exam Narrative: Well-appearing 68-year-old female sitting upright in bed. Vital signs are stable afebrile. Pulse ox 98% on room air no hypoxia. No distress. H EENT exam pupils round react to light. Moist mucous membranes. No trauma. Neck nontender no JVD. Lungs clear to auscultation bilaterally. Heart regular rhythm rate about 80 no murmur. Chest wall and ribs nontender. Abdomen soft nontender. Nondistended normal bowel sounds without peritoneal signs. Back nontender. Kyphotic. Moving all 4 extremities. 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 Equal symmetrical radial pulses. Dorsi plantarflexion intact. Calves nontender without edema or cords. Neurologically she is awake alert. Answering questions following commands. Const Vital Signs: 09/06/24 16:39 09/06/24 16:59 09/06/24 17:00 Temperature 98.7 F Temperature Source Oral Pulse Rate 83 76 78 Respiratory Rate 19 H 14 17 Blood Pressure 126/64 H 122/98 H Blood Pressure Mean 84 106 Pulse Ox 98 80 98 Oxygen Delivery Method Room Air Room Air 09/06/24 17:15 09/06/24 17:24 09/06/24 17:30 Temperature Temperature Source Pulse Rate 73 Respiratory Rate 18 Blood Pressure 139/65 H Blood Pressure Mean 87 Pulse Ox 95 98 Oxygen Delivery Method Room Air Room Air 09/06/24 17:39 09/06/24 17:45 09/06/24 18:00 Temperature Temperature Source Pulse Rate 74 72 74 Respiratory Rate 18 14 16 Blood Pressure 139/65 H Blood Pressure Mean 89 Pulse Ox 99 Oxygen Delivery Method 09/06/24 18:15 09/06/24 18:26 09/06/24 18:30 Temperature Temperature Source Pulse Rate 73 72 Respiratory Rate 9 L 18 Blood Pressure 158/73 H 140/72 H Blood Pressure Mean 99 89 Pulse Ox 100 Oxygen Delivery Method Room Air 09/06/24 18:45 09/06/24 19:00 09/06/24 19:15 Temperature Temperature Source Pulse Rate 73 86 72 Respiratory Rate 20 H 19 H 12 Blood Pressure 131/58 H Blood Pressure Mean 79 Pulse Ox 99 100 Oxygen Delivery Method 09/06/24 19:30 09/06/24 19:45 09/06/24 20:00 Temperature Temperature Source Pulse Rate 94 71 74 Respiratory Rate 35 H 12 12 Blood Pressure 146/69 H Blood Pressure Mean 88 Pulse Ox 98 Oxygen Delivery Method Room Air Positive well nourished and well developed; Negative for obese, cachectic, contractures or unkempt General Appearance ED: well developed; Negative for unkempt, cachectic, contractures or pallor Nutritional Appearance: Negative for cachectic or obese HEENT Reports moist mucous membranes normocephalic and atraumatic Eyes PERRL and EOMs intact bilaterally General Eye ED: Negative for pale conjunctiva or scleral icterus Neck no lymphadenopathy, supple and no JVD General: Negative for tenderness Chest Wall inspection of chest normal and palpation of chest normal Chest: Negative for tenderness Resp normal respiratory effort and clear to auscultation bilaterally Effort and Inspection: Negative for respiratory distress Auscultation: Negative for rales, rhonchi or wheezes Cardio regular rate, regular rhythm, S1 normal heart sound, S2 normal heart sound and no murmurs Peripheral Pulses: pulses 2+ throughout GI normal to inspection, nondistended, normoactive bowel sounds, soft to palpation, non-tender, non-distended and no masses Back/Spine no CVA tenderness and no thoracic nor lumbar tenderness General Back: Negative for CVA tenderness Cervical Spine: Negative for cervical spine tenderness Extremity normal to inspection General Extremety ED: Negative for edema, pulses abnormal or tenderness General Extremity: Negative for edema or pulses abnormal Neuro oriented x3 and CN's II-XII intact bilaterally Sensorium / Orientation: awake, alert, oriented to person, oriented to place and oriented to time; Negative for confused, lethargic or stuporous Motor Exam: strength 5/5 throughout Psych Appearance: Negative for unkempt Attitude: No agitated Mood & Affect: Negative for depressed, anxious or tearful Skin no rashes or lesions noted and no wounds General Skin Exam: Negative for jaundice or pallor Rashes: No rashes noted Trauma: Negative for abrasion or laceration MDM MDM MDM Narrative Medical decision making narrative: Patient with chest pain that resolved with sublingual nitroglycerin at home and aspirin. She is a history of known cardiomyopathy. She is on blood thinner Eliquis. Show negative cardiac workup. Also has a history of recent pancreatic surgery through upper endoscopy. Lipase to be obtained. Given Zofran for nausea. She has a care plan will not be given narcotic pain medication. Repeat exam patient is doing well. No distress. Will have her test results. She will be discharged home. Chest pain uncertain etiology. History & Record Review Discussion w/independent historian: Patient Additional record(s) reviewed:: Prior inpatient record, Prior outpatient record, Prior ED visit and Prior labs Lab Data Attestation: I reviewed the patient's lab results. Lab results narrative: CBC unremarkable. White count of 6. H&H 13 and 41. Platelets 308. Chemistry shows sodium 131. Gap 10. BUN 38 creatinine 1.0. Glucose 183. Troponin is 17. Lipase is normal at 63. 2-hour troponin is only 13. Labs: Laboratory Results - last 24 hr 09/06/24 09/06/24 16:58 18:48 WBC 6.9 RBC 4.71 Hgb 13.4 Hct 41.1 MCV 87.3 MCH 28.5 MCHC 32.6 RDW Std Deviation 44.6 H RDW Coeff of Yeimi 13.9 Plt Count 308 MPV 9.0 Immature Gran % (Auto) 0.300 Neut % (Auto) 71.5 H Lymph % (Auto) 17.3 L Coleman % (Auto) 8.0 Eos % (Auto) 1.9 Baso % (Auto) 1.0 Absolute Neuts (auto) 4.9 Absolute Lymphs (auto) 1.19 Nucleated RBC % 0 Sodium 131 L Potassium 4.4 Chloride 99 Carbon Dioxide 21.8 Anion Gap 10 BUN 38 H Creatinine 1.05 Estim Creat Clear Calc 45.42 L Est GFR (MDRD) Non-Af 58 L BUN/Creatinine Ratio 36.5 H Glucose 183 H Calcium 10.4 Troponin T High Sens 17 H D Troponin T Hi Sens 2 Hr 13 Lipase 63 Radiography Chest X-Ray - ED: 1 View, Read by ED Physician, Heart, Lungs, Mediastinum, Bony Structures, No Acute Disease and Chronic Changes Diagnostic Testing: Clinical Impression(s) from Imaging Studies Chest X-Ray 09/06/24 17:10 IMPRESSION: Lungs are hypoinflated. Generalized osteopenia is again seen. No acute osseous change is evident. Partially visualized prior cervical surgery again noted. Mild left basilar atelectasis is seen. No evidence of pulmonary edema. No pleural effusion or pneumothorax is seen. The cardiomediastinal silhouette is within the normal range; no evidence of cardiomegaly. Reading Location: [place] [address] Chest x-ray, portable, single view interpreted by myself shows no acute abnormality. Normal cardiac silhouette. Normal lung jeffery. Normal mediastinum. Chronic changes. Prior orthopedic hardware on the C-spine. No acute process. Rhythm Strip Rhythm Strip: Sinus Rhythm Rate: 79 Ectopy: None EKG Initial EKG: Attestation: I personally reviewed and interpreted this EKG as follows: Interpretation: Sinus Rhythm and No Acute Injury Pattern Comments: Normal sinus rhythm rate of 79 no acute signs of IA or ischemia. Old inferior IA. Discharge Plan Triage Chief Complaint: Chest Pain ED Provider: Mark Anthony Blackburn Dx/Rx/DC Orders Clinical Impression: Chest pain, History of diabetes mellitus, History of atrial fibrillation, Chronic anticoagulation Instructions: ED Chest Pain, Uncertain Cause Prescriptions: No Action cholecalciferol (vitamin D3) 125 mcg (5,000 unit) capsule 125 mcg PO DAILY ferrous sulfate 325 mg (65 mg iron) tablet 325 mg PO DAILY aspirin [Adult Aspirin Regimen] 81 mg tablet,delayed release (DR/EC) 81 mg PO DAILY donepezil 10 mg tablet 20 mg PO DAILY Rx Instructions: with lunch insulin lispro 100 unit/mL insulin pen 1 sliding scale dose subcut QAC Patient Comments: Use with meals based on PRE meal blood sugar SLIDING SCALE as needed #1 (1 unit for every 50 over 150) Max 20 units daily. nitroglycerin 0.4 mg tablet, sublingual 0.4 mg sublingual Q5-15M Qty: 25 3RF albuterol sulfate 2.5 mg /3 mL (0.083 %) solution for nebulization 2.5 mg inhalation Q8H PRN (Reason: Dyspnea, wheezing) Qty: 180 0RF hydrocortisone 2.5 % cream 1 applic topical BID PRN (Reason: skin irritation) Qty: 454 1RF Gemtesa 75 mg tablet 75 mg PO DAILY lidocaine [Lidoderm] 5 % adhesive patch,medicated 1 patch topical DAILY Rx Instructions: leave on most painful area for up to 12 hrs isosorbide mononitrate 30 mg tablet extended release 24 hr 30 mg PO BID Qty: 180 3RF ropinirole 1 mg tablet 1 mg PO QDAY Rx Instructions: 1mg at lunch and 2mg at HS ramelteon 8 mg tablet 8 mg PO QHS PRN (Reason: sleep) Qty: 90 1RF ropinirole 2 mg tablet 2 mg PO QHS Rx Instructions: 1mg at lunch and 2mg at HS sucralfate 1 gram tablet 1 g PO 4X/DAY hydroxyzine HCl 50 mg tablet 50 mg PO BID PRN (Reason: anxiety) Qty: 60 1RF duloxetine [Cymbalta] 30 mg capsule,delayed release(DR/EC) 30 mg PO BID Qty: 180 2RF modafinil 200 MG tablet 200 mg PO DAILY acetaminophen 500 MG tablet 1,000 mg PO TID PRN (Reason: pain 1-02/03) Qty: 1 0RF Rx Instructions: alternate with ibuprofen atorvastatin 40 mg tablet 40 mg PO QHS ascorbic acid (vitamin C) 500 mg tablet,chewable 500 mg PO DAILY Prolia 60 mg/mL syringe 60 mg subcut [id number] Patient Comments: PT STATES LAST GIVEN END OF JUNE tizanidine 2 mg tablet 2 mg PO DAILY PRN (Reason: pain) Rx Instructions: TAKE 1 TABLET BY MOUTH EVERY MORNING and 1 to 2 TABLETS AT BEDTIME NEEDED FOR PAIN control clotrimazole-betamethasone 1-0.05 % cream 1 applic topical BID nystatin [Nystop] 100,000 unit/gram powder 1 applic topical BID tizanidine 2 mg tablet 2 - 4 mg PO QHS PRN (Reason: pain) Rx Instructions: TAKE 1 TABLET BY MOUTH EVERY MORNING and 1 to 2 TABLETS AT BEDTIME NEEDED FOR PAIN control quetiapine 100 mg tablet See Rx Instructions .ROUTE .COMPLEX Rx Instructions: To be taken with 100 mg tablet at bedtime for nightly dose of 125 mg qHS pioglitazone 30 mg tablet 30 mg PO DAILY Mounjaro 12.5 mg/0.5 mL pen injector 12.5 mg subcut TU sulfamethoxazole-trimethoprim 800-160 mg tablet 1 tab PO BID Patient Comments: PT HAS 4 DOSES LEFT ondansetron HCl 4 mg tablet 4 mg PO Q8H PRN dicyclomine 20 mg tablet 20 mg PO BID fluorometholone 0.1 % drops,suspension 1 drp ophthalmic (eye) BID (DME) Accu-Chek Ada Plus test strp Strip See Rx Instructions .Route Qty: 100 6RF Rx Instructions: As directed pantoprazole 40 mg tablet,delayed release (DR/EC) 40 mg PO DAILY Qty: 90 1RF albuterol sulfate 90 mcg/actuation HFA aerosol inhaler 2 puff inhalation Q6H PRN (Reason: shortness of breath or wheezing) Qty: 8.5 2RF carvedilol 12.5 mg tablet 12.5 mg PO BID Qty: 180 3RF Rx Instructions: must administer with a meal/food quetiapine 25 mg tablet 25 mg PO QHS Qty: 90 0RF Rx Instructions: To be taken with 100 mg tablet at bedtime for nightly dose of 125 mg qHS losartan 50 mg tablet 50 mg PO QDAY Qty: 180 3RF Eliquis 5 mg tablet 5 mg PO BID Qty: 180 3RF Primary Care Provider: Carlton Rocha Referrals: Carlton Rocha, [facility]AL[facility] NURSE-C [Primary Care Provider] - 3-5 Days Activity Restrictions/Additional Instructions: Tests look good. Heart enzymes negative. Lipase was normal also. Outpatient follow-up with your primary care provider. Print Language: Yi Disposition Disposition: Home, Self Care
[2024-09-06 17:10] LABS: Absolute Lymphocyte Count 1.19 X10^3/uL (0.83-4.51); Absolute Neutrophil Count 4.9 X10^3/uL (2.0-7.7); Basophil# 0.07 X10^3/uL; Eosinophil# 0.13 X10^3/uL; Eosinophils% 1.9 % (0-5); Hematocrit 41.1 % (37-47); Hemoglobin 13.4 g/dL (12.0-15.0); Lymphocyte # 1.19 X10^3/ul (0.83-4.51); Lymphocyte % 17.3 % (19-41); Mean Corp Hgb Conc 32.6 g/dL (32-36); Mean Corpuscular Hgb 28.5 pg (27.0-32.0); Mean Corpuscular Volume 87.3 fL (81-99); Monocyte# 0.55 X10^3/uL; NRBC Flagged by Analyzer 0 % (0-5); Neutrophil % 71.5 % (47-70); Platelet Count 308 K/mm3 (150-450); RBC Distribution Width CV 13.9 % (11.6-14.6); RBC Distribution Width SD 44.6 fl (35.1-43.9); Red Blood Count 4.71 M/mm3 (4.2-5.4); White Blood Count 6.9 K/mm3 (4.4-11.0)
--- NOTE | 2024-09-06 17:10 | RAD_ITS ---
PROCEDURE: CHEST 1 VIEW (PORTABLE) 09/06/2024 REASON FOR EXAM: CHEST PAIN TECHNIQUE: Frontal view of the chest. COMPARISON: Chest x-ray of 08/23/2024. RAD/Chest 1 View (Portable) IMPRESSION: Lungs are hypoinflated. Generalized osteopenia is again seen. No acute osseous change is evident. Partially visualized prior cervical surgery again noted. Mild left basilar atelectasis is seen. No evidence of pulmonary edema. No pleural effusion or pneumothorax is seen. The cardiomediastinal silhouette is within the normal range; no evidence of car diomegaly. Reading Location: [place] [id number]
[2024-09-06] MEDS: Ondansetron 4 MG/2 ML Vial IV (17:23)
[2024-09-06 17:38] LABS: Anion Gap 10 (5-15); BUN 38 mg/dL (4-19); BUN/Creat Ratio 36.5 RATIO (10-20); Calcium,Total 10.4 mg/dL (7.6-11.0); Carbon Dioxide 21.8 mmol/L (21.0-32.0); Chloride 99 mmol/L (98-108); Creatinine, Serum 1.05 mg/dL (0.70-1.20); EST Glomerular Filtration Rate 58 (>60); Estimated Creatinine Clearance 45.42 ml/min (50-250); Glucose 183 mg/dL (70-99); Lipase 63 U/L (13-75); Potassium 4.4 mmol/L (3.3-5.1); Sodium Level 131 mmol/L (133-145); Troponin T High Sensitivity 17 ng/L (<=14)
[2024-09-06 20:09] LABS: Troponin T High Sens 2 HR 13 ng/L (<=14)
== END 2024-09-06 21:14 | disposition home or self-care (01) ==
PROVIDERS: Emergency Provider Emergency Medicine; PCP Nurse Practitioner Family; Visit Provider Emergency Medicine
DX: R07.9 Chest pain, unspecified (principal); I13.0 Hypertensive heart and chronic kidney disease with heart failure and stage 1 through stage 4 chronic kidney disease, or unspecified chronic kidney disease; I50.22 Chronic systolic (congestive) heart failure; J44.9 Chronic obstructive pulmonary disease, unspecified; I48.0 Paroxysmal atrial fibrillation; E11.22 Type 2 diabetes mellitus with diabetic chronic kidney disease; N18.30 Chronic kidney disease, stage 3 unspecified; E78.5 Hyperlipidemia, unspecified; I25.10 Atherosclerotic heart disease of native coronary artery without angina pectoris; Z95.5 Presence of coronary angioplasty implant and graft; F17.210 Nicotine dependence, cigarettes, uncomplicated; Z79.01 Long term (current) use of anticoagulants; I25.2 Old myocardial infarction; G25.81 Restless legs syndrome; Z79.899 Other long term (current) drug therapy; F41.8 Other specified anxiety disorders; Z98.41 Cataract extraction status, right eye; Z98.42 Cataract extraction status, left eye
CPT/HCPCS: 71045; 80048; 83690; 84484; 85025; 93005; 96374; 99285; A4216; J2405

== ENCOUNTER → 2024-09-12 | Outpatient (CLI) | payer MEDICARE, MEDICAID, SELFPAY ==
[2016-07-13 11:45] VITALS: BMI 31.4
--- NOTE | 2024-09-12 11:38 | SP.MBSS_ITS ---
Modified Barium Swallow Patient Information Study Date: 09/12/24 Study Time: 13:00 Direct Billable Minutes: 120 Total Minutes procedure & reportin Diagnosis: Dysphagia R13.10 Referring Physician: Jahaira Antonio Reason for Referral: 07/29/2024 the patient had follow-up GI visit after hospitalization for common bile duct stricture and pancreatic duct dilatation. During the visit, she reported concerns regarding difficulty swallowing. She is completely edentulous with poor-fitting dentures and prefers not to use them. She keeps her food moist and chews small bites well, but has started feeling like her food gets stuck at the top of her throat. She has MS and works with [employer], PT, and OT w/ [employer] recommending she have her swallowing difficulty investigated per GI office visit note. She was recommended for this MBSS to further assess swallowing concerns, as well as concern for pocketing. Upon arrival to MBSS, the patient reported feeling funny and asked JOURNEYMAN POWERHOUSE OPERATOR to take the patient's blood pressure. JOURNEYMAN POWERHOUSE OPERATOR had an RN attend to the patient, but vitals were all normal. Pt described to RN that she was feeling, out of body. She felt well enough to continue with the MBSS. Pt provided additional history stating that foods sometimes get caught in her throat. She denies hx of pocketing. She did report that at times she gags and foods come up 45min after she has consumed them. She has most difficulty w/ harder foods and sometimes breads. Of note, she eats a lot of sandwiches. She either consumes tender or chopped up meat due to her chewing difficulty. Medical History: Multiple sclerosis, Hiatal hernia, Chronic back pain, IBS with diarrhea, Old anterior wall RI (04/08/16), Major depression, Typical atrial flutter, Syncope, HLD, Closed injury of the head, CKD stage 3, Anxiety, Mural thrombus of heart, hx of STEMI, BRYAN, Cervical spinal stenosis, Takotsubo syndrome, A fib, Nicotine abuse, Chronic CHF, DM type 2 in nonobese, COPD - See EMR for full PMH. Current Diet Ordered: Easy to Chew textures, chopped meat / Thin liquids Dentition: Edentulous Mental Status: WNL Respiratory Status: Oxygenating on Room Air Penetration-Aspiration Scale Penetration-Aspiration Scale: OBJECTIVE ASSESSMENT OF SWALLOW FUNCTION (QUANTITATIVE ? PER TRIAL): PENETRATION / ASPIRATION SCALE (JACOB): 1 = does not enter airway 2 = enters airway/above vocal folds/ejected 3 = enters airway/above vocal folds/not ejected 4 = enters airway/contacts vocal folds/ejected 5 = enters airway/contacts vocal folds/not ejected 6 = enters airway/below vocal folds/ejected 7 = enters airway/below vocal folds/not ejected despite effort 8 = enters airway/below vocal folds/no effort VIDEOFLOROSCOPIC SCALE SCORE (JACOB): Grade I = aspiration of material that has penetrated into the laryngeal vestibule, intact cough reflex Grade II = aspiration < 10 % of the bolus, intact cough reflex Grade III = aspiration of < 10 % of the bolus, reduced cough reflex or aspiration of > 10 % of the bolus, intact cough reflex Grade IV = aspiration of > 10 % of the bolus, reduced cough reflex Penetration-Aspiration Scale Score Thin Liquid via teaspoon: Result: 1= does not enter airway Thin Liquid via teaspoon Trial 2: Result: 1= does not enter airway Thin Liquid via large single sip: cup: Result: 2= enter airway/above vocal folds/ejected Coleridge Thick Liquid via large single sip: cup: Result: 1= does not enter airway Pudding via teaspoon: Result: 1= does not enter airway Comment: Esophageal screen - Retention in the middle esophagus w/ retrograde flow, then retention in the lower esophagus. Thin Liquid via single sip: straw: Result: 7= enters airways/below vocal folds/not ejected despite effort Comment: Esophageal screen - Liquid wash mostly cleared esophageal retention of pudding. 1/2 Cookie: Result: 1= does not enter airway Comment: Esophageal screen - Retention throughout the esophagus. Thin Liquid via large single sip: cup Trial 2: Result: 2= enter airway/above vocal folds/ejected Comment: Esophageal screen - Liquid wash mostly cleared cookie retention through the LES; however, continued retention in the lower esophagus of cookie. Second liquid wash provided w/ retention of liquids in lower esophagus w/ retrograde flow. Oral Phase Labial Seal: No Labial Escape Tongue Control During Bolus Hold: Posterior escape of less than half of bolus (thin by straw spilled to the laryngeal vestibule prior to swallow onset, resulting in aspiration during the swallow) Bolus Preparation/Mastication: Disorganized chewing/mashing with solid pieces of bolus unchewed Bolus Transport/Lingual Motion: Repetitive/disorganized tongue motion Oral Residue: Majority of bolus remaining (~50% of bolus in the oral cavity, mostly cleared w/ independent initiation of a second swallow) Pharyngeal Phase Initiation of Pharyngeal Swallow: Bolus head at posterior laryngeal surgace of epiglottis Soft Palate Elevation: No bolus between soft palate and pharyngeal wall Laryngeal Elevation: Partial superior movement thyroid cart/partial apprx aryt- epig petiole Anterior Hyoid Excursion: Complete anterior movement Epiglottic Movement: Complete inversion Laryngeal Vestibule Closure at Height of Swallow: Incomplete; narrow column of air/contrast in laryngeal vestibule Pharyngeal Stripping Wave: Present - complete Pharyngoesophageal Segment Opening: Parital distension and partial duration; parital obstruction of flow Tongue Base Retraction: Trace column of contrast between tongue base & post. pharyngeal wall Pharyngeal Residue: Trace residue within or on pharyngeal structures Esophageal Phase Esophageal Clearance: Esophageal retention w/ retrograde flow below pharyngoesophageal seg. Diagnosis/Impression Diagnosis: Mild-moderate oropharyngeal dysphagia R13.12; Impression: The oral phase is primarily marked by... -Decreased bolus control. Thin by straw spilled to the laryngeal vestibule prior to swallow onset, resulting in aspiration during the swallow. -Piecemeal deglutition, especially w/ large sips. ~50% of bolus in the oral cavity after the first swallow, mostly cleared w/ independent initiation of a second swallow. -Prolonged and decreased mastication w/ small pieces of the cookie appearing un- chewed. The pharyngeal phase is primarily marked by... -Overall, good pharyngeal motility. Trace pharyngeal residues. -Complete anterior hyoid excursion; however, decreased laryngeal elevation w/ aspiration of thin liquids via straw during the swallow. The esophageal phase is primarily marked by... -Retention of pudding and cookie in the esophagus, which mostly cleared w/ thin liquid wash; however, retention of thin liquids in the lower esophagus as well after the cookie trial. -Retrograde flow of liquids in the lower esophagus. Recommendations Diet: Soft and Bite Sized Textures and Thin Liquids Comment: STOP meal if sensation of retention despite use of strategies listed below and resume meal at a later time. Compensatory Strategies: Small Bites (Chew thoroughly), Small Sips, No Straws, Slow Rate (Take one bite and sip at a time), Alternate bites/solids and sips/liquids (Take 1-2 sips after each bite) and Sitting upright (During and 60min after the meal) Recommend Repeat Modified Barium Swallow: TBD Need for Skilled Speech Therapy Services: Yes Comment: -Train the patient in use of strategies to decrease risk for aspiration and reflux aspiration. -Ongoing assessment of diet tolerance of recommended textures. Training in diet texture testing and preparation of soft and bite size (IDDSI Level 6) textures. -Train the patient in oropharyngeal exercise program to improve bolus control and laryngeal elevation (lingual resistance, lingual coordination, Alex). Recommended Referrals: GI Consult and Dental Evaluation (Recommend getting new dentures fitted to improve mastication abilities) Education Completed: 1. Described result of evaluation., 2. Pt understands evaluation & agrees with goals and treatment plan. and 7. Pt requires further education on strategies & risks. Status Active ST Patient: Active Contact Information [facility] Speech Therapy:: Maribell Cedeño M.A. [facility]-JOURNEYMAN POWERHOUSE OPERATOR Speech-Language Pathologist [facility] [address] [place] [address] [phone]
== END | disposition home or self-care (01) ==
LOC: RAD 13:02
PROVIDERS: PCP Nurse Practitioner Family
DX: R13.10 Dysphagia, unspecified (principal)
CPT/HCPCS: 74230; 92611

== ENCOUNTER → 2024-10-06 | Outpatient (CLI) | payer MEDICARE, MEDICAID, SELFPAY ==
[2016-07-13 11:45] VITALS: BMI 31.4
[2024-10-06 13:03] LABS: Color, Urine Yellow (Yellow); Glucose, Dipstick Normal (Normal); Ketone-Dipstick Negative (Negative); Leukocyte Esterase-Dipstick 100 /ul (Negative); Nitrite-Dipstick Negative (Negative); Occult Blood-Urine 10 /ul (Negative); Protein-Dipstick 30 mg/dl (Negative); Urine Bilirubin Dipstick Negative (Negative); Urine Clarity Sl. Cloudy (Clear); Urine Urobilinogen 1 mg/dl (Normal)
== END | disposition home or self-care (01) ==
LOC: LABSPEC 12:51
PROVIDERS: PCP Nurse Practitioner Family
DX: R30.0 Dysuria (principal); I10 Essential (primary) hypertension
CPT/HCPCS: 81002; 87086; 87088

== ENCOUNTER 2024-10-11 12:25 | Outpatient (CLI) | payer MEDICARE, MEDICAID, SELFPAY ==
[2016-07-13 11:45] VITALS: BMI 31.4
--- NOTE | 2024-10-11 07:32 | PAT.ANESEVAL ---
Pre-Assessment Diagnosis/Proposed Procedure Planned Operative Procedure(s): ERCP Anesthesia History Anesthesia History - operations lead: Anesthesia History - operations lead Hx Hospitalization Yes: 06/202410/10/24 16:32 Any Problems With Anesthesia No 10/10/24 16:32 Cholinesterase deficiency No 10/10/24 16:32 You/Your Family Experience No 10/10/24 16:32 fever (hyperthermia) with Relationship Recent Exposure to Contagious No 07/21/24 13:53 Disease Does patient have nerve No 10/10/24 16:32 stimulator Patient instructed to have device shut off --Does patient have Pacemaker or ICD? When Was Last Pacemaker Check QUESTION #4 FULL TEXT: You/Your Family Experience fever (hyperthermia) with Anesthesia Last Oral Intake Last Oral intake: Last Oral Intake NPO since Meds taken in AM with sips of water? Meds patient instructed to take am of surgery PONV PONV - operations lead: PONV - operations lead Female Yes 10/10/24 16:32 HX of Motion Sickness No 10/10/24 16:32 HX of N/V After Surgery No 10/10/24 16:32 Non-Smoker No 10/10/24 16:32 Duration of Surgery greater Yes 10/10/24 16:32 than 60 minutes Number of Risk Factors 2 10/10/24 16:32 PONV Score Moderate Risk 10/10/24 16:32 Height & Weight Height & Weight: Anesthesia: Height & Weight Height 5 ft 2 in 10/03/24 10:00 Respiratory Assessment Respiratory Assessment - operations lead: Respiratory Tract Infection Hx - operations lead Hx Respiratory Tract Infection No 10/10/24 16:32 STOP Sleep Apnea STOP Sleep Apnea - operations lead: STOP Sleep Apnea - operations lead Hx Hypertension Yes: CONTROLLED WITH MED 10/10/24 16:32 Hx Sleep Apnea No 10/10/24 16:32 CPAP No 07/21/24 17:55 BIPAP Yes: doesn't have to wear 06/06/22 16:26 bipap anymore Do you snore loudly (louder No 10/10/24 16:32 than talking or can be heard Do you often feel tired/ Yes 10/10/24 16:32 fatigued/ sleepy during daytime? Has anyone observed you stop No 10/10/24 16:32 breathing during sleep? STOP Results Positive 10/10/24 16:32 QUESTION #5 FULL TEXT : Do you snore loudly (louder than talking or can be heard through closed doors)? 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 Specify any problems Hx of Preganancy in last 3 No 10/10/24 16:32 Months Nurse Filling Out Transfusion DSCHRIBER 10/10/24 16:32 & Questions: Date: 10/10/24 10/10/24 16:32 Time: 16:33 10/10/24 16:32 Patient unable to answer at this time (ie. confused, unrespo /Reproduction History /Reproductive History - operations lead: /Reproductive Hx- operations lead Hx Now No 10/10/24 16:32 Gestational Age (in weeks): EDC: Hx Hx Para Hx Section SAB No 10/10/24 16:32 PFSH Medical History (Updated 10/10/24 @ 16:46 by Padmini Bullock) Restless legs Wears glasses Complete edentulism, class III Diabetes Walker as ambulation aid Bladder disease Low iron High cholesterol Dietary restriction History of hiatal hernia Gastric reflux Smoker Chronic bronchitis History of Holter monitoring History of echocardiogram History of stress test Cardiology follow-up encounter History of CHF (congestive heart failure) Chest pain PTSD (post-traumatic stress disorder) Vitamin deficiency Fatigue Headache Closed injury of head Insomnia Osteoporosis Chronic neck pain with history of cervical spinal surgery Chronic anticoagulation Mural thrombus of heart Hiatal hernia Chronic back pain History of peptic ulcer disease 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) Essential (primary) hypertension History of ST elevation myocardial infarction (STEMI) Major depression Multiple sclerosis Cervical spinal stenosis IBS (irritable bowel syndrome) RLS (restless legs syndrome) Takotsubo syndrome Atherosclerotic heart disease of [place] coronary artery without angina pectoris Typical atrial flutter Paroxysmal atrial fibrillation Left ventricular hypertrophy Chronic systolic (congestive) heart failure Ischemic cardiomyopathy Apical mural thrombus with acute PR Vitamin B12 deficiency Irritable bowel syndrome with diarrhea Home Medications ?Medication ?Instructions ?Recorded ?Last Taken ?Type modafinil 200 mg tablet 200 mg PO DAILY FATIGUE 12/12/19 09/06/24 History acetaminophen 500 mg tablet 1,000 mg (2 x 500 mg) PO TID PRN 07/29/20 07/18/24 Rx pain -02/03 #1 TAB cholecalciferol (vitamin D3) 125 125 mcg PO DAILY supplement 11/05/21 09/06/24 History mcg (5,000 unit) capsule ferrous sulfate 325 mg (65 mg 325 mg PO DAILY supplement 11/05/21 09/06/24 History iron) tablet aspirin 81 mg tablet,delayed 81 mg PO DAILY heart health 04/01/22 09/06/24 History release (Adult Aspirin Regimen) ascorbic acid (vitamin C) 500 mg 500 mg PO DAILY supplement 06/06/22 09/06/24 History chewable tablet atorvastatin 40 mg tablet 40 mg PO QHS cholesterol 06/06/22 09/05/24 History denosumab 60 mg/mL subcutaneous 60 mg subcut [id number] bone health 06/06/22 07/21/24 History syringe (Prolia) albuterol sulfate 2.5 mg/3 mL 2.5 mg (3 mL) inhalation Q8H PRN 07/21/22 Unknown Rx (0.083 %) solution for nebulization Dyspnea, wheezing #180 mL blood sugar diagnostic (Accu-Chek #100 ea 07/29/22 Unknown Rx Ada Plus test strips) pantoprazole 40 mg tablet,delayed 40 mg PO DAILY gerd #90 tabs 09/04/22 09/06/24 Rx release donepezil 10 mg tablet 20 mg PO DAILY 09/11/22 09/06/24 History insulin lispro 100 unit/mL 1 sliding scale dose subcut QAC 09/11/22 09/06/24 History subcutaneous pen hydrocortisone 2.5 % topical cream 1 applic topical BID PRN skin 09/12/22 Unknown Rx irritation #454 grams albuterol sulfate 90 mcg/actuation 2 puff inhalation Q6H PRN 10/29/22 07/18/24 Rx aerosol inhaler shortness of breath or wheezing #8.5 grams vibegron 75 mg tablet (Gemtesa) 75 mg PO DAILY 01/30/23 09/06/24 History lidocaine 5 % topical patch 1 patch topical DAILY 06/22/23 09/06/24 History (Lidoderm) ropinirole 2 mg tablet 2 mg PO QHS restless leg 03/01/24 09/05/24 History sucralfate 1 gram tablet 1 g PO 4X/DAY reflux 03/01/24 09/06/24 History ropinirole 1 mg tablet 1 mg PO 1200 05/03/24 09/06/24 History fluorometholone 0.1 % eye 1 drp ophthalmic (eye) BID 07/10/24 09/06/24 History drops,suspension nystatin 100,000 unit/gram topical 1 applic topical BID PRN SKIN 07/18/24 09/06/24 History powder (Nystop) tizanidine 2 mg tablet 2 mg PO DAILY PRN pain 07/18/24 09/06/24 History duloxetine 30 mg capsule,delayed 30 mg PO BID mental health #180 08/01/24 09/06/24 Rx release (Cymbalta) caps hydroxyzine HCl 50 mg tablet 50 mg PO BID PRN anxiety #60 tabs 08/01/24 Unknown Rx apixaban 5 mg tablet (Eliquis) 5 mg PO BID #180 tabs 08/31/24 10/07/24 Rx tirzepatide 12.5 mg/0.5 mL 12.5 mg subcut TU 09/06/24 10/04/24 History subcutaneous pen injector (Mounjaro) ondansetron HCl 4 mg tablet 4 mg PO Q8H PRN nausea and 09/26/24 Unknown Rx vomiting #30 tabs carvedilol 6.25 mg tablet 6.25 mg PO BID #180 tabs 09/29/24 Unknown Rx dicyclomine 20 mg tablet 20 mg PO BID PRN IBS 09/29/24 Unknown History isosorbide mononitrate 30 mg 30 mg PO BID heart #180 tabs 09/29/24 Unknown Rx tablet,extended release 24 hr losartan 25 mg tablet 25 mg PO QDAY #90 tabs 09/29/24 Unknown Rx nitroglycerin 0.4 mg sublingual 0.4 mg sublingual Q5-15M #25 tabs 09/29/24 Unknown Rx tablet oxycodone-acetaminophen 5 mg-325 0.5 - 1 tab PO QDAY PRN pain 09/29/24 Unknown History mg tablet quetiapine 100 mg tablet 100 mg PO QHS #90 tabs 10/03/24 Unknown Rx quetiapine 25 mg tablet 25 mg PO QHS #90 tabs 10/03/24 Unknown Rx ramelteon 8 mg tablet 8 mg PO QHS PRN sleep #90 tabs 10/03/24 Unknown Rx Allergy/AdvReac Type Severity Reaction Status Date / Time vancomycin Allergy Severe Anaphylaxis Verified 10/10/24 16:24 indomethacin (From Indocin) Allergy Hives Verified 10/10/24 16:24 indomethacin sodium (From Allergy Hives Verified 10/10/24 16:24 Indocin) iodine Allergy Hives Verified 10/10/24 16:24 propoxyphene napsylate (From Allergy Out of Verified 10/10/24 16:24 Darvocet-N) control trazodone AdvReac Intermediate Other Verified 10/10/24 16:24 aripiprazole (From Abilify) AdvReac Other Verified 10/10/24 16:24 aspirin AdvReac Upset Verified 10/10/24 16:24 Stomach clindamycin AdvReac Nausea Verified 10/10/24 16:24 metformin AdvReac Other Verified 10/10/24 16:24 sumatriptan (From Imitrex) AdvReac Vomiting Verified 10/10/24 16:24 Family History Father Cancer Lung cancer Mother Cancer Pancreatic cancer Surgical History (Updated 10/10/24 @ 16:46 by Padmini Bullock) Hx of lumbosacral spine surgery Hx of bilateral cataract extraction (~03/2022) History of left heart catheterization (09/25/20) History of loop recorder (06/2014) History of amputation of left great toe History of left knee surgery History of tonsillectomy and adenoidectomy History of back surgery History of cervical discectomy History of coronary artery stent placement (04/08/16) Social History household members: none housing: house Smoking Status: Current some day smoker tobacco type: cigarettes alcohol intake: never substance use type: does not use caffeine: Yes Type: coffee Number of servings: 1 what type of physical activity do you participate in: none and other details: Physical Therapy Audit: Pertinent Findings HISTORY of Pertinent Findings History of Pertinent Findings: 68 year old female with a history of coronary artery disease with stenting to her LAD and angioplasty of her second diagonal in March [address] elevation myocardial infarction.? She was noted to have a left ventricle apical thrombus and cardiomyopathy with an ejection fraction of 25-30%.? This was repeated in June 2016 and the ejection fraction had improved to 40% with no evidence of ventricular thrombus.? With stress echo done in August of 2019 this improved to 55%.? Because of continued chest discomfort, She did have a stress test in August 2020 which was negative for ischemia.? She then did continue to complain of chest discomfort she did undergo a diagnostic heart catheterization in September 2020 which demonstrated patent stents. She has unfortunately had multiple visits to the emergency room for chest discomfort as well as elevated blood pressure. She also complained of abdominal discomfort hematemesis and had a GI evaluation. On October 27, 2021 she was admitted to [facility] for hypertensive emergency, right-sided abdominal pain. Patient did have a mildly elevated troponin. Echocardiogram demonstrated an ejection fraction of 48%, grade 1 diastolic dysfunction, small LV apical transmural thrombus noted. Left atrial cavity is moderately dilated. Right atrial cavity dilated. No significant valvular abnormalities noted. Stress test was found to be abnormal. Patient underwent a diagnostic heart catheterization and this was noted to be normal. She was discharged home with a decrease in her Coreg and isosorbide was added. In September of this year she was admitted to the emergency room here was evaluated and discharged. She tells me that she has subsequently had 2 back surgeries for decompression of T10 as well as L3-L4. Pertinent Findings EKG Perinent findings: 08/2024: NSR LAD Stress test pertinent findings: Stress Test 05/08/21 Impression: 1. Rest and stress SPECT currently nuclear imaging demonstrate myocardial perfusion changes appearing compatible with the effects of a previous myocardial injury/infarction involving portions of the mid to distal anterior, distal anteroseptal, and apical segments with post-rest myocardial perfusion changes appearing compatible with mild pauline-infarct related myocardial ischemia. 2. The gated Cardiolite study reports an LVEF of 48%. Echo (EF%) pertinent findings: Echocardiogram 07/31/2021: Normal LV size. Left ventricular systolic function is lower limits of normal. The estimated ejection fraction is 50 %. Mild segmental systolic dysfunction (see wall motion). [place] : Hypokinetic. Pulmonary artery systolic pressure is 44 mmHg. Contrast injection was performed. Heart catheterization pertinent findings: Heart cath 09/25/2020: Cardiomyopathy: Dilated ischemic Previously placed stent in the LAD is patent. There is significant hypokinesis noted of the anterior wall apex consistent with a prior infarct. CORONARY ANGIOGRAPHY DOMINANCE: Co- Dominant LEFT HEART ASSESSMENT Left Ventricular Ejection Fraction: by LV Gram 37 % Anterior Hypokinesis - Severe. Apical Akinesis Depressed Left Ventricular systolic function LEFT MAIN: Mild luminal irregularities LEFT ANTERIOR DESCENDING ARTERY: MID LAD: Previously placed stent is patent CIRCUMFLEX ARTERY: Mild luminal irregularities RIGHT CORONARY ARTERY: Mild luminal irregularities Recommendation Anesthesia Recommendation Anesthesia recommendation: OPTIMIZED for anesthesia
--- NOTE | 2024-10-11 11:50 | EKG12_ITS ---
Test Reason : PREOP Blood Pressure : */* mmHG Vent. Rate : 65 BPM Atrial Rate : 65 BPM P-R Int : 156 ms QRS Dur : 98 ms QT Int : 400 ms P-R-T Axes : 46 -48 95 degrees QTcB Int : 416 ms Normal sinus rhythm Left axis deviation Septal infarct (cited on or before 21-Oct-2016) Inferior infarct (cited on or before 21-Oct-2016) Abnormal ECG When compared with ECG of 06-Sep-2024 16:56, Nonspecific T wave abnormality now evident in Anterior leads Confirmed by ALLAN WITT, DORYS ([id number]), story editor YUNG MUNGUIA ([id number]) on 10/12/2024 12:48:44 PM Referred By: Carlton Rocha Confirmed By: DORYS LEMUS MD
[2024-10-11 12:14] VITALS: BP 109/66; PULSE 71; RESP 16; TEMP 36.9; O2SAT 100; BMI 30.6
[2024-10-11 12:21] LABS: Bedside Glucose 138 mg/dL (74-106)
--- NOTE | 2024-10-11 12:22 | PCM.PRE.AN2 ---
ASA Classification* ASA Classification ASA Classification: 3 Assessment & Plan Anesthesia* Anesthesia Assessment Anesthesia Assessment: Discussed sedation and/or anesthesia options, risks, benefits, and alternatives with patient/parents/legal guardian/POA. Questions invited. The patient/parents/legal guardian/POA seems to understand and agrees to proceed with anesthesia plan. Reviewed the physical assessment, medical history, allergy history and patient home medications list prior to surgery/procedure/anesthetic and documented any changes. Performed airway and anesthesia risk assessments. Procedural Plan Procedural Plan:: NOT optimized for anesthesia Add'l anesthesia plan details: Patient has a long-standing history of multiple sclerosis, and unfortunately, on the day of the procedure is presenting with active MS symptoms, including what she describes as speech deficit which leads to weakness into her lower extremities and causes her to not be able to walk. I reviewed her neurology chart from [facility], and it seems this exacerbation may be due to her coming off of her MS medication. Regardless, for an elective procedure, we should not administer anesthesia as anesthesia can worsen MS symptoms, and given that her symptoms include the possibility of an inability to ambulate, I do not want to risk worsening her clinical course. I advised the patient that she should not have anesthesia today. The patient verbalized understanding and agreed with the decision. I recommended she speak with Dr. Jean regarding further course. Anesthesia Type Anesthesia Type: General (cancelled ) History Source History Obtained from:: Patient and Chart Anesthesia Focused Assessment* Temperature: 98.4 F Pulse Rate: 71 Blood Pressure: 109/66 Respiratory Rate: 16 Pulse Ox: 100 Airway Assessment Mouth opens: >3 cm Mallampati Score: III Labs Anesthesia Preop lab: CBC WBC 6.9 K/mm3 (4.4-11.0) 09/06/24 16:58 09/06/24 RBC 4.71 M/mm3 (4.2-5.4) 09/06/24 16:58 09/06/24 Hgb 13.4 g/dL (12.0-15.0) 09/06/24 16:58 09/06/24 Hct 41.1 % (37-47) 09/06/24 16:58 09/06/24 Plt Count 308 K/mm3 (150-450) 09/06/24 16:58 09/06/24 CHEMISTRY Potassium 4.4 mmol/L (3.3-5.1) 09/06/24 16:58 09/06/24 Sodium 131 mmol/L (133-145) L 09/06/24 16:58 09/06/24 Magnesium 2.0 mg/dL (1.6-2.6) 04/28/22 18:50 04/28/22 Phosphorus 2.2 mg/dL (2.5-4.9) L 04/14/18 22:30 04/14/18 BUN 38 mg/dL (4-19) H 09/06/24 16:58 09/06/24 Creatinine 1.05 mg/dL (0.70-1.20) 09/06/24 16:58 09/06/24 Glucose 183 mg/dL (70-99) H 09/06/24 16:58 09/06/24 POC Glucose 138 mg/dL (74-106) H 10/11/24 12:01 10/11/24 TSH 1.440 uIU/mL (0.300-4.200) 07/19/24 06:17 07/19/24 COAG PT 13.3 SECONDS (11.7-14.9) 08/23/24 11:45 08/23/24 Urine Test Negative Negative 03/03/18 14:25 03/03/18 Pre-Assessment Diagnosis/Proposed Procedure Planned Operative Procedure(s): ERCP Anesthesia History Anesthesia History - viscosity inspector: Anesthesia History - viscosity inspector Hx Hospitalization Yes: 06/202410/10/24 16:32 Any Problems With Anesthesia No 10/10/24 16:32 Cholinesterase deficiency No 10/10/24 16:32 You/Your Family Experience No 10/10/24 16:32 fever (hyperthermia) with Relationship Recent Exposure to Contagious No 10/11/24 12:14 Disease Does patient have nerve No 10/10/24 16:32 stimulator Patient instructed to have device shut off --Does patient have Pacemaker No 10/11/24 12:14 or ICD? When Was Last Pacemaker Check QUESTION #4 FULL TEXT: You/Your Family Experience fever (hyperthermia) with Anesthesia Last Oral Intake Last Oral intake: Last Oral Intake NPO since 08:00 10/11/24 12:14 Meds taken in AM with sips of Yes 10/11/24 12:14 water? Meds patient instructed to coreg,PROTONIX,LOSARTAN, 10/11/24 12:14 take am of surgery ISOSORBIDE,CYMBALTA, LIDOCAINE PATCH PONV PONV - viscosity inspector: PONV - viscosity inspector Female Yes 10/10/24 16:32 HX of Motion Sickness No 10/10/24 16:32 HX of N/V After Surgery No 10/10/24 16:32 Non-Smoker No 10/10/24 16:32 Duration of Surgery greater Yes 10/10/24 16:32 than 60 minutes Number of Risk Factors 2 10/10/24 16:32 PONV Score Moderate Risk 10/10/24 16:32 Height & Weight Height & Weight: Anesthesia: Height & Weight Height 5 ft 2 in 10/11/24 12:14 Weight: 76 kg 10/11/24 12:14 Body Mass Index (BMI) 30.6 10/11/24 12:14 Respiratory Assessment Respiratory Assessment - viscosity inspector: Respiratory Tract Infection Hx - viscosity inspector Hx Respiratory Tract Infection No 10/10/24 16:32 STOP Sleep Apnea STOP Sleep Apnea - viscosity inspector: STOP Sleep Apnea - viscosity inspector Hx Hypertension Yes: CONTROLLED WITH MED 10/10/24 16:32 Hx Sleep Apnea No 10/10/24 16:32 CPAP No 07/21/24 17:55 BIPAP Yes: doesn't have to wear 06/06/22 16:26 bipap anymore Do you snore loudly (louder No 10/10/24 16:32 than talking or can be heard Do you often feel tired/ Yes 10/10/24 16:32 fatigued/ sleepy during daytime? Has anyone observed you stop No 10/10/24 16:32 breathing during sleep? STOP Results Positive 10/10/24 16:32 QUESTION #5 FULL TEXT : Do you snore loudly (louder than talking or can be heard through closed doors)? 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 Specify any problems Hx of Preganancy in last 3 No 10/10/24 16:32 Months Nurse Filling Out Transfusion DSCHRIBER 10/10/24 16:32 & Questions: Date: 10/10/24 10/10/24 16:32 Time: 16:33 10/10/24 16:32 Patient unable to answer at this time (ie. confused, unrespo /Reproduction History /Reproductive History - viscosity inspector: /Reproductive Hx- viscosity inspector Hx Now No 10/10/24 16:32 Gestational Age (in weeks): EDC: Hx Hx Para Hx Section SAB No 10/10/24 16:32 Active Medications Active Medications: Current Medications Generic Name Dose Route Start Last Admin Trade Name Freq PRN Reason Stop Dose Admin Lactated Ringer's 1,000 mls @ 15 mls/hr 10/11/24 12:00 IV .Q48H [facility] Medical History (Updated 10/10/24 @ 16:46 by Padmini Bullock) Restless legs Wears glasses Complete edentulism, class III Diabetes Walker as ambulation aid Bladder disease Low iron High cholesterol Dietary restriction History of hiatal hernia Gastric reflux Smoker Chronic bronchitis History of Holter monitoring History of echocardiogram History of stress test Cardiology follow-up encounter History of CHF (congestive heart failure) Chest pain PTSD (post-traumatic stress disorder) Vitamin deficiency Fatigue Headache Closed injury of head Insomnia Osteoporosis Chronic neck pain with history of cervical spinal surgery Chronic anticoagulation Mural thrombus of heart Hiatal hernia Chronic back pain History of peptic ulcer disease 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) Essential (primary) hypertension History of ST elevation myocardial infarction (STEMI) Major depression Multiple sclerosis Cervical spinal stenosis IBS (irritable bowel syndrome) RLS (restless legs syndrome) Takotsubo syndrome Atherosclerotic heart disease of [place] coronary artery without angina pectoris Typical atrial flutter Paroxysmal atrial fibrillation Left ventricular hypertrophy Chronic systolic (congestive) heart failure Ischemic cardiomyopathy Apical mural thrombus with acute TX Vitamin B12 deficiency Irritable bowel syndrome with diarrhea Home Medications ?Medication ?Instructions ?Recorded ?Last Taken ?Type modafinil 200 mg tablet 200 mg PO DAILY FATIGUE 12/12/19 09/06/24 History acetaminophen 500 mg tablet 1,000 mg (2 x 500 mg) PO TID PRN 07/29/20 07/18/24 Rx pain -02/03 #1 TAB cholecalciferol (vitamin D3) 125 125 mcg PO DAILY supplement 11/05/21 09/06/24 History mcg (5,000 unit) capsule ferrous sulfate 325 mg (65 mg 325 mg PO DAILY supplement 11/05/21 09/06/24 History iron) tablet aspirin 81 mg tablet,delayed 81 mg PO DAILY heart health 04/01/22 10/09/24 History release (Adult Aspirin Regimen) ascorbic acid (vitamin C) 500 mg 500 mg PO DAILY supplement 06/06/22 09/06/24 History chewable tablet atorvastatin 40 mg tablet 40 mg PO QHS cholesterol 06/06/22 09/05/24 History denosumab 60 mg/mL subcutaneous 60 mg subcut [id number] bone health 06/06/22 07/21/24 History syringe (Prolia) albuterol sulfate 2.5 mg/3 mL 2.5 mg (3 mL) inhalation Q8H PRN 07/21/22 Unknown Rx (0.083 %) solution for nebulization Dyspnea, wheezing #180 mL blood sugar diagnostic (Accu-Chek #100 ea 07/29/22 Unknown Rx Ada Plus test strips) pantoprazole 40 mg tablet,delayed 40 mg PO DAILY gerd #90 tabs 09/04/22 10/11/24 Rx release donepezil 10 mg tablet 20 mg PO DAILY 09/11/22 09/06/24 History insulin lispro 100 unit/mL 1 sliding scale dose subcut QAC 09/11/22 09/06/24 History subcutaneous pen hydrocortisone 2.5 % topical cream 1 applic topical BID PRN skin 09/12/22 Unknown Rx irritation #454 grams albuterol sulfate 90 mcg/actuation 2 puff inhalation Q6H PRN 10/29/22 07/18/24 Rx aerosol inhaler shortness of breath or wheezing #8.5 grams vibegron 75 mg tablet (Gemtesa) 75 mg PO DAILY 01/30/23 09/06/24 History lidocaine 5 % topical patch 1 patch topical DAILY 06/22/23 09/06/24 History (Lidoderm) ropinirole 2 mg tablet 2 mg PO QHS restless leg 03/01/24 09/05/24 History sucralfate 1 gram tablet 1 g PO 4X/DAY reflux 03/01/24 09/06/24 History ropinirole 1 mg tablet 1 mg PO 1200 05/03/24 10/11/24 History fluorometholone 0.1 % eye 1 drp ophthalmic (eye) BID 07/10/24 09/06/24 History drops,suspension nystatin 100,000 unit/gram topical 1 applic topical BID PRN SKIN 07/18/24 09/06/24 History powder (Nystop) tizanidine 2 mg tablet 2 mg PO DAILY PRN pain 07/18/24 09/06/24 History duloxetine 30 mg capsule,delayed 30 mg PO BID mental health #180 08/01/24 09/06/24 Rx release (Cymbalta) caps hydroxyzine HCl 50 mg tablet 50 mg PO BID PRN anxiety #60 tabs 08/01/24 Unknown Rx apixaban 5 mg tablet (Eliquis) 5 mg PO BID #180 tabs 08/31/24 10/07/24 Rx tirzepatide 12.5 mg/0.5 mL 12.5 mg subcut TU 09/06/24 10/04/24 History subcutaneous pen injector (Jonathanro) ondansetron HCl 4 mg tablet 4 mg PO Q8H PRN nausea and 09/26/24 Unknown Rx vomiting #30 tabs carvedilol 6.25 mg tablet 6.25 mg PO BID #180 tabs 09/29/24 10/11/24 Rx dicyclomine 20 mg tablet 20 mg PO BID PRN IBS 09/29/24 Unknown History isosorbide mononitrate 30 mg 30 mg PO BID heart #180 tabs 09/29/24 10/11/24 Rx tablet,extended release 24 hr losartan 25 mg tablet 25 mg PO QDAY #90 tabs 09/29/24 10/11/24 Rx nitroglycerin 0.4 mg sublingual 0.4 mg sublingual Q5-15M #25 tabs 09/29/24 Unknown Rx tablet oxycodone-acetaminophen 5 mg-325 0.5 - 1 tab PO QDAY PRN pain 09/29/24 Unknown History mg tablet quetiapine 100 mg tablet 100 mg PO QHS #90 tabs 10/03/24 Unknown Rx quetiapine 25 mg tablet 25 mg PO QHS #90 tabs 10/03/24 Unknown Rx ramelteon 8 mg tablet 8 mg PO QHS PRN sleep #90 tabs 10/03/24 Unknown Rx Allergy/AdvReac Type Severity Reaction Status Date / Time vancomycin Allergy Severe Anaphylaxis Verified 10/11/24 12:10 indomethacin (From Indocin) Allergy Hives Verified 10/11/24 12:10 indomethacin sodium (From Allergy Hives Verified 10/11/24 12:10 Indocin) iodine Allergy Hives Verified 10/11/24 12:10 propoxyphene napsylate (From Allergy Out of Verified 10/11/24 12:10 Darvocet-N) control trazodone AdvReac Intermediate Other Verified 10/11/24 12:10 aripiprazole (From Abilify) AdvReac Other Verified 10/11/24 12:10 aspirin AdvReac Upset Verified 10/11/24 12:10 Stomach clindamycin AdvReac Nausea Verified 10/11/24 12:10 metformin AdvReac Other Verified 10/11/24 12:10 sumatriptan (From Imitrex) AdvReac Vomiting Verified 10/11/24 12:10 Family History Father Cancer Lung cancer Mother Cancer Pancreatic cancer Surgical History (Updated 10/10/24 @ 16:46 by Padmini Bullock) Hx of lumbosacral spine surgery Hx of bilateral cataract extraction (~03/2022) History of left heart catheterization (09/25/20) History of loop recorder (06/2014) History of amputation of left great toe History of left knee surgery History of tonsillectomy and adenoidectomy History of back surgery History of cervical discectomy History of coronary artery stent placement (04/08/16) Social History household members: none housing: house Smoking Status: Current some day smoker tobacco type: cigarettes alcohol intake: never substance use type: does not use caffeine: Yes Type: coffee Number of servings: 1 what type of physical activity do you participate in: none and other details: Physical Therapy Review of Systems (Anesthesia) ROS Narrative System reviewed and no additional complaints, except as documented.
[2024-10-11 12:25] VITALS: BP 109/66; PULSE 71; RESP 16; TEMP 36.9; O2SAT 100
--- NOTE | 2024-10-11 12:40 | NURSING ---
ANESTHESIA CANCELED CASE DUE TO PT HAVING A MS FLARE UP. MADE AWARE. PT EDUCATED TO CALL [facility] OFFICE TO RESCHEDULE.
== END 2024-10-11 19:00 | disposition home or self-care (01) ==
LOC: EN 03-08 16:08
PROVIDERS: PCP Nurse Practitioner Family; Referring Provider Nurse Practitioner Family; Visit Provider Internal Medicine Gastroenterology
DX: Z01.818 Encounter for other preprocedural examination (principal); E11.9 Type 2 diabetes mellitus without complications
CPT/HCPCS: 82962; 93005

== ENCOUNTER 2024-11-26 13:53 | Emergency (ER) | payer MEDICARE, MEDICAID, SELFPAY ==
[2016-07-13 11:45] VITALS: BMI 31.4
[2024-11-26 13:53] VITALS: BP 153/77; PULSE 72; RESP 18; TEMP 37; O2SAT 99; BMI 27.7
--- NOTE | 2024-11-26 13:57 | RAD_ITS ---
PROCEDURE: SHOULDER MIN 2 VIEWS 11/26/2024 REASON FOR EXAM: INJURY/PAIN TECHNIQUE: SHOULDER MIN 2 VIEWS, four views COMPARISON: None FINDINGS: The bones are diffusely demineralized. No demonstrated acute fracture. There is age consistent glenohumeral and acromioclavicular joint arthrosis without traumatic injury. There is a prominent spur in the undersurface of the acromion which could cause impingement in the right clinical setting. No upper rib fracture or pneumothorax RAD/Shoulder min 2 Views IMPRESSION: Age consistent degenerative changes, no acute findings Prominent spur in the undersurface of the acromion could cause impingement in t he right clinical setting Reading Location: [id number]
--- NOTE | 2024-11-26 14:08 | EX.ED.UPPERE ---
HPI History of Present Illness Chief Complaint: Upper Extremity Injury Detail of Chief Complaint: Injury right shoulder due to fall and direct trauma Informant: patient Occured/Mechanism Mechanism/Context: Yes injury, Yes blunt trauma, Yes fall and Yes same level fall Comment: HPI narrative Onset/Context/Timing Onset: Today and Hours Context: Sudden Onset Timing: Continuous Quality of Pain: Dull Location: Left shoulder region Current Severity: Mild Maximum Severity: Moderate Worsened by: Movement and palpation Relieved by: Remaining still Associated Symptoms Associated Symptoms: Negative for Parasthesia, Weakness or Loss of Funtion Narrative Narrative: Patient is a 68-year-old [id number] woman. When she got up this morning she slipped. She hit her left shoulder against the rail of a hospital bed. She denied head trauma. Denies neck pain. She denies paresthesia, anesthesia Medicus upper or lower extremities. She denies shortness of breath or difficulty breathing. She denies chest pain. Localized the pain to the scapula and proximal humerus region. Prior similar symptoms: No Recent Illness/Hospitalization: No PFSH PFSH Medical History Hx MRSA infection Alcohol use Restless legs Wears glasses Complete edentulism, class III Diabetes Walker as ambulation aid Bladder disease Low iron High cholesterol Dietary restriction History of hiatal hernia Gastric reflux Smoker Chronic bronchitis History of Holter monitoring History of echocardiogram History of stress test Cardiology follow-up encounter History of CHF (congestive heart failure) Chest pain PTSD (post-traumatic stress disorder) Vitamin deficiency Fatigue Headache Closed injury of head Insomnia Osteoporosis Chronic neck pain with history of cervical spinal surgery Chronic anticoagulation Mural thrombus of heart Hiatal hernia Chronic back pain History of peptic ulcer disease 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Instructions ?Recorded ?Last Taken ?Type modafinil 200 mg tablet 200 mg PO DAILY FATIGUE 12/12/19 09/06/24 History acetaminophen 500 mg tablet 1,000 mg (2 x 500 mg) PO TID PRN 07/29/20 07/18/24 Rx pain -02/03 #1 TAB cholecalciferol (vitamin D3) 125 125 mcg PO DAILY supplement 11/05/21 09/06/24 History mcg (5,000 unit) capsule ferrous sulfate 325 mg (65 mg 325 mg PO DAILY supplement 11/05/21 09/06/24 History iron) tablet aspirin 81 mg tablet,delayed 81 mg PO DAILY heart health 04/01/22 10/09/24 History release (Adult Aspirin Regimen) ascorbic acid (vitamin C) 500 mg 500 mg PO DAILY supplement 06/06/22 09/06/24 History chewable tablet atorvastatin 40 mg tablet 40 mg PO QHS cholesterol 06/06/22 09/05/24 History denosumab 60 mg/mL subcutaneous 60 mg subcut [id number] bone health 06/06/22 07/21/24 History syringe (Prolia) albuterol sulfate 2.5 mg/3 mL 2.5 mg (3 mL) inhalation Q8H PRN 07/21/22 Unknown Rx (0.083 %) solution for nebulization Dyspnea, wheezing #180 mL blood sugar diagnostic (Accu-Chek #100 ea 07/29/22 Unknown Rx Ada Plus test strips) pantoprazole 40 mg tablet,delayed 40 mg PO DAILY gerd #90 tabs 09/04/22 10/11/24 Rx release donepezil 10 mg tablet 20 mg PO DAILY 09/11/22 09/06/24 History insulin lispro 100 unit/mL 1 sliding scale dose subcut QAC 09/11/22 09/06/24 History subcutaneous pen hydrocortisone 2.5 % topical cream 1 applic topical BID PRN skin 09/12/22 Unknown Rx irritation #454 grams albuterol sulfate 90 mcg/actuation 2 puff inhalation Q6H PRN 10/29/22 07/18/24 Rx aerosol inhaler shortness of breath or wheezing #8.5 grams vibegron 75 mg tablet (Gemtesa) 75 mg PO DAILY 01/30/23 09/06/24 History lidocaine 5 % topical patch 1 patch topical DAILY 06/22/23 09/06/24 History (Lidoderm) ropinirole 2 mg tablet 2 mg PO QHS restless leg 03/01/24 09/05/24 History sucralfate 1 gram tablet 1 g PO 4X/DAY reflux 03/01/24 09/06/24 History ropinirole 1 mg tablet 1 mg PO 1200 05/03/24 10/11/24 History fluorometholone 0.1 % eye 1 drp ophthalmic (eye) BID 07/10/24 09/06/24 History drops,suspension nystatin 100,000 unit/gram topical 1 applic topical BID PRN SKIN 07/18/24 09/06/24 History powder (Nystop) tizanidine 2 mg tablet 2 mg PO DAILY PRN pain 07/18/24 09/06/24 History duloxetine 30 mg capsule,delayed 30 mg PO BID mental health #180 08/01/24 09/06/24 Rx release (Cymbalta) caps hydroxyzine HCl 50 mg tablet 50 mg PO BID PRN anxiety #60 tabs 08/01/24 Unknown Rx apixaban 5 mg tablet (Eliquis) 5 mg PO BID #180 tabs 08/31/24 10/07/24 Rx tirzepatide 12.5 mg/0.5 mL 15 mg subcut TU 09/06/24 10/04/24 History subcutaneous pen injector (Aston) ondansetron HCl 4 mg tablet 4 mg PO Q8H PRN nausea and 09/26/24 Unknown Rx vomiting #30 tabs carvedilol 6.25 mg tablet 6.25 mg PO BID #180 tabs 09/29/24 10/11/24 Rx dicyclomine 20 mg tablet 20 mg PO BID PRN IBS 09/29/24 Unknown History isosorbide mononitrate 30 mg 30 mg PO BID heart #180 tabs 09/29/24 10/11/24 Rx tablet,extended release 24 hr losartan 25 mg tablet 25 mg PO QDAY #90 tabs 09/29/24 10/11/24 Rx nitroglycerin 0.4 mg sublingual 0.4 mg sublingual Q5-15M #25 tabs 09/29/24 Unknown Rx tablet oxycodone-acetaminophen 5 mg-325 0.5 - 1 tab PO QDAY PRN pain 09/29/24 Unknown History mg tablet quetiapine 100 mg tablet 100 mg PO QHS #90 tabs 10/03/24 Unknown Rx quetiapine 25 mg tablet 25 mg PO QHS #90 tabs 10/03/24 Unknown Rx ramelteon 8 mg tablet 8 mg PO QHS PRN sleep #90 tabs 10/03/24 Unknown Rx Allergy/AdvReac Type Severity Reaction Status Date / Time vancomycin Allergy Severe Anaphylaxis Verified 10/11/24 12:10 indomethacin (From Indocin) Allergy Hives Verified 10/11/24 12:10 indomethacin sodium (From Allergy Hives Verified 10/11/24 12:10 Indocin) iodine Allergy Hives Verified 10/11/24 12:10 propoxyphene napsylate (From Allergy Out of Verified 10/11/24 12:10 Darvocet-N) control trazodone AdvReac Intermediate Other Verified 10/11/24 12:10 aripiprazole (From Abilify) AdvReac Other Verified 10/11/24 12:10 aspirin AdvReac Upset Verified 10/11/24 12:10 Stomach clindamycin AdvReac Nausea Verified 10/11/24 12:10 metformin AdvReac Other Verified 10/11/24 12:10 sumatriptan (From Imitrex) AdvReac Vomiting Verified 10/11/24 12:10 Family History Father Cancer Lung cancer Mother Cancer Pancreatic cancer Surgical History Hx of lumbosacral spine surgery Hx of bilateral cataract extraction (~03/2022) History of left heart catheterization (09/25/20) History of loop recorder (06/2014) History of amputation of left great toe History of left knee surgery History of tonsillectomy and adenoidectomy History of back surgery History of cervical discectomy History of coronary artery stent placement (04/08/16) Social History household members: none housing: house Smoking Status: Current some day smoker tobacco type: cigarettes alcohol intake: never substance use type: does not use caffeine: Yes Type: coffee Number of servings: 1 what type of physical activity do you participate in: none and other details: Physical Therapy ROS ROS ED Eyes Eyes: Denies blurry vision, change in vision or diplopia ENT ENT ED: Denies rhinorrhea or sore throat Cardiovascular Cardiovascular: Denies chest pain or palpitations Respiratory/Chest Respiratory/Chest: Denies cough, dyspnea or dyspnea on exertion Gastrointestinal Gastrointestinal: Denies abdominal pain, nausea or vomiting Musculoskeletal Musculoskeletal: Denies back pain, myalgias or neck pain Integumentary Denies rash Neurologic Neurologic: Denies headache(s), paresthesias or weakness Hematologic/Lymphatic Hematologic/Lymphatic: Denies easy bleeding or easy bruising EXAM Physical Exam Const Vital Signs: 11/26/24 13:53 Temperature 98.6 F Temperature Source Oral Pulse Rate 72 Respiratory Rate 18 Blood Pressure 153/77 H Blood Pressure Mean 102 Pulse Ox 99 Oxygen Delivery Method Room Air Positive well nourished and well developed General Appearance ED: well developed and NAD HEENT Reports moist mucous membranes HEENT Narrative: There is no septal deviation or hematoma. normocephalic and atraumatic Eyes PERRL and EOMs intact bilaterally Eyes Narrative: There is no subconjunctival hemorrhage. Neck full ROM and supple Chest Wall inspection of chest normal and palpation of chest normal Resp normal respiratory effort and clear to auscultation bilaterally Cardio regular rate, regular rhythm, S1 normal heart sound, S2 normal heart sound and no murmurs Extremity normal to inspection; Negative for full ROM Extremity Narrative: Patient has pain with abduction. There is pain ovation of the proximal humerus. There is no pain the patient with clavicle or AC joint. She does have pain ovation over the scapula superior to the spinous process. Axillary, median, radial and ulnar nerve function are intact. There is no pain ovation of the lateral medial epicondyle, olecranon process or radial head with supination pronation. There is no pain ovation over the distal radius or ulna, carpal bones, metacarpal bones or phalanges. Neuro oriented x3, CN's II-XII intact bilaterally and moves all extremities Sensorium / Orientation: alert Psych mental status grossly normal Skin Lesions: no lesions Rashes: no rashes Trauma: no lacerations or abrasions MDM MDM MDM Narrative Medical decision making narrative: With limited range of motion due to pain, pain ovation of the proximal humerus will obtain x-ray to evaluate for contusion versus fracture. Radiography Chest X-Ray - ED: Read by ED Physician (4 views of the left shoulder were obtained. There is no evidence of fracture, subluxation or dislocation. The clavicle and AC joint appear normal. The portion of the scapula that was seen is normal as well.) Diagnostic Testing: The radiology report was reviewed. He noted a prominent spur in the undersurface of the acromion. Since her symptoms are not that of impingement syndrome this is inconsequential. Discharge Plan Triage Chief Complaint: Upper Extremity Injury ED Provider: Michael Alford Dx/Rx/DC Orders Clinical Impression: Contusion of left shoulder, Essential (primary) hypertension, PTSD (post-traumatic stress disorder), Ischemic cardiomyopathy, Hyperlipemia, Injury due to fall Instructions: ED Contusion, Upper Extremity Prescriptions: No Action cholecalciferol (vitamin D3) 125 mcg (5,000 unit) capsule 125 mcg PO DAILY ferrous sulfate 325 mg (65 mg iron) tablet 325 mg PO DAILY aspirin [Adult Aspirin Regimen] 81 mg tablet,delayed release (DR/EC) 81 mg PO DAILY donepezil 10 mg tablet 20 mg PO DAILY Rx Instructions: with lunch insulin lispro 100 unit/mL insulin pen 1 sliding scale dose subcut QA Patient Comments: Use with meals based on PRE meal blood sugar SLIDING SCALE as needed #1 (1 unit for every 50 over 150) Max 20 units daily. albuterol sulfate 2.5 mg /3 mL (0.083 %) solution for nebulization 2.5 mg inhalation Q8H PRN (Reason: Dyspnea, wheezing) Qty: 180 0RF hydrocortisone 2.5 % cream 1 applic topical BID PRN (Reason: skin irritation) Qty: 454 1RF Gemtesa 75 mg tablet 75 mg PO DAILY lidocaine [Lidoderm] 5 % adhesive patch,medicated 1 patch topical DAILY Rx Instructions: leave on most painful area for up to 12 hrs ropinirole 1 mg tablet 1 mg PO 1200 Rx Instructions: 1mg at lunch and 2mg at HS ropinirole 2 mg tablet 2 mg PO QHS Rx Instructions: 1mg at lunch and 2mg at HS sucralfate 1 gram tablet 1 g PO 4X/DAY oxycodone-acetaminophen 5-325 mg tablet 0.5 - 1 tab PO QDAY PRN (Reason: pain) carvedilol 6.25 mg tablet 6.25 mg PO BID Qty: 180 3RF Rx Instructions: must administer with a meal/food isosorbide mononitrate 30 mg tablet extended release 24 hr 30 mg PO BID Qty: 180 3RF losartan 25 mg tablet 25 mg PO QDAY Qty: 90 3RF nitroglycerin 0.4 mg tablet, sublingual 0.4 mg sublingual Q5-15M Qty: 25 3RF hydroxyzine HCl 50 mg tablet 50 mg PO BID PRN (Reason: anxiety) Qty: 60 1RF duloxetine [Cymbalta] 30 mg capsule,delayed release(DR/EC) 30 mg PO BID Qty: 180 2RF ramelteon 8 mg tablet 8 mg PO QHS PRN (Reason: sleep) Qty: 90 1RF quetiapine 100 mg tablet 100 mg PO QHS Qty: 90 1RF quetiapine 25 mg tablet 25 mg PO QHS Qty: 90 1RF Rx Instructions: To be taken with 100 mg tablet at bedtime for nightly dose of 125 mg qHS ondansetron HCl 4 mg tablet 4 mg PO Q8H PRN Qty: 30 2RF modafinil 200 MG tablet 200 mg PO DAILY acetaminophen 500 MG tablet 1,000 mg PO TID PRN (Reason: pain -02/03) Qty: 1 0RF Rx Instructions: alternate with ibuprofen atorvastatin 40 mg tablet 40 mg PO QHS ascorbic acid (vitamin C) 500 mg tablet,chewable 500 mg PO DAILY Prolia 60 mg/mL syringe 60 mg subcut [id number] Patient Comments: PT STATES LAST GIVEN END OF JUNE tizanidine 2 mg tablet 2 mg PO DAILY PRN (Reason: pain) Rx Instructions: TAKE 1 TABLET BY MOUTH EVERY MORNING and 1 to 2 TABLETS AT BEDTIME NEEDED FOR PAIN control nystatin [Nystop] 100,000 unit/gram powder 1 applic topical BID PRN (Reason: SKIN) Mounjaro 12.5 mg/0.5 mL pen injector 15 mg subcut TU fluorometholone 0.1 % drops,suspension 1 drp ophthalmic (eye) BID dicyclomine 20 mg tablet 20 mg PO BID PRN (Reason: IBS) (DME) Accu-Chek Ada Plus test strp Strip See Rx Instructions .Route Qty: 100 6RF Rx Instructions: As directed pantoprazole 40 mg tablet,delayed release (DR/EC) 40 mg PO DAILY Qty: 90 1RF albuterol sulfate 90 mcg/actuation HFA aerosol inhaler 2 puff inhalation Q6H PRN (Reason: shortness of breath or wheezing) Qty: 8.5 2RF Eliquis 5 mg tablet 5 mg PO BID Qty: 180 3RF Primary Care Provider: Carlton Rocha Referrals: Carlton Rocha, [facility] [Primary Care Provider] - 1 Week if not improving Activity Restrictions/Additional Instructions: 1. Apply ice 6-8 times a day for the next 3 to 5 days. You may take Tylenol for your pain. Print Language: Persian Disposition Disposition: Home, Self Care
--- OUTSIDE RECORDS SUMMARY | 2024-11-26 14:37 | XMS RPT_ITS | CCD ---
Author Organization [facility] Care Team Providers Care Product Safety Head Name Role Phone No, Physician Unavailable Unavailable Enid Kirk Unavailable Unavailable Dayne Chapin Unavailable Unavailable Dayne Chapin Unavailable Unavailable Enid Kirk Unavailable Unavailable PCP, Unknown Unavailable Unavailable ISAKOV, LUIS ALBERTO Unavailable Unavailable Mas, Svetlana A. Unavailable Unavailable Mas, Svetlana A. Unavailable Unavailable Sringeri, Vijeth R Unavailable Unavailable Sringeri, Vijeth R Unavailable Unavailable Sringeri, Vijeth R Unavailable Unavailable Sringeri, Vijeth R Unavailable Unavailable Padival, Pradyumna K Unavailable Unavailable Padival, Pradyumna K Unavailable Unavailable Pike, Yeison K Unavailable Unavailable Pike, Yeison K Unavailable Unavailable Mas, Svetlana A. Unavailable Unavailable Annetta Ruiz E Unavailable Unavailable TJ MEDRANO Consulting Unavailable CHRISTA CASTANEDA DPM Admitting Unavailable CHRISTA CASTANEDA DPM Attending Unavailable CHRISTA CASTANEDA DPM Primary Care Unavailable No, Physician Primary Care Provider Unavailabl e REFERRING, PHY WO ID Primary Care Physician Unav ailable Dr. Tom Sherman Primary Care Provider Dr. Tom Sherman Referring Provider Elina LOPEZ, PA Fatuma Carrasco Attending Provider Dr. Artemio Leal Emergency Provider Dr. Shannan Cameron Admit Provider Dr. Shannan Cameron Attending Provider Dr. Shannan Cameron Other Provider Dr. Alessio Zapata Attending Provider Dr. Shannan Cameron Referring Provider Dr. Melodie Fisher Other Provider Dr. Gris Mason Attending Provider Marina JEWELRY BENCH WORKER, JEWELRY BENCH WORKER-C Melodie Attending Provider [phone] Dr. Tom Sherman Attending Provider [phone] Dr. Elias Butler Attending Provider [phone] Whit WITT[facility] Primary Care Provider Dr. Tom Sherman Primary Care Provider [phone] Dr. Tom Sherman Referring Provider [phone] Dr. Tom Sherman Primary Care Provider [phone] Dr. Tom Sherman Referring Provider [phone] Marina JEWELRY BENCH WORKER, JEWELRY BENCH WORKER-C Melodie Attending Provider [phone] Dr. Tom Sherman Attending Provider [phone] Dr. Elias Butler Attending Provider [phone] Tom Sherman Primary Care Provider [phone] Dr. Tom Sherman Referring Provider [phone] Marina JEWELRY BENCH WORKER, JEWELRY BENCH WORKER-C Melodie Attending Provider [phone] Dr. Tom Sherman Attending Provider [phone] Dr. Cheko Ortiz Emergency Provider Dr. Apolinar Zavala Admit Provider Dr. Apolinar Zavala Attending Provider Dr. Apolinar Zavala Other Provider Dr. Michelle Sawyer Attending Provider Dr. Michelle Sawyer Other Provider Dr. Melodie Fisher Attending Provider Dr. Melodie Fisher Other Provider Dr. Tom Sherman Primary Care Provider [phone] Dr. Tom Sherman Referring Provider [phone] Josefina JEWELRY BENCH WORKER, JEWELRY BENCH WORKER-C Melodie Attending Provider [phone] Dr. Elias Butler Attending Provider Dr. Apolinar Zavala Referring Provider Elina LOPEZ, PA Fatuma Carrasco Attending Provider Kaylah Sherman MD Primary Care Provider Carrie, Elias S Unavailable Dr. Tom Sherman Primary Care Provider [phone] Dr. Tom Sherman Referring Provider [phone] Josefina JEWELRY BENCH WORKER, JEWELRY BENCH WORKER-C Melodie Attending Provider [phone] Dr. Tom Sherman Attending Provider [phone] Elina LOPEZ, PA Fatuma Carrasco Attending Provider Kaylah Sherman MD Primary Care Provider Carrie, Elias S Unavailable Tom Sherman MD Primary Care Provider [phone] Carrie, [place] S Unavailable Tom Sherman MD Primary Care Provider [phone] Melodie Marina Primary Care Provider [phone] Carrie, [place] S Unavailable Melodie Marina MD Primary Care Provider [phone] Carrie WITT, Elias S Unavailable ROSA FLORES Referring Unavailable Melodie Marina CNP Primary Care Provider Melodie Marina CNP Primary Care Provider MELODIE MARINA Primary Care Unavailable JARRED DUARTE Attending Unavailable MEKA WEBB Referring Unavailable Cioce AMMONIUM NITRATE CRYSTALLIZER.PUBLIC RELATIONS WRITER, Rosa C Unavailable Melodie Marina MD Primary Care Provider AVRIL, CHLOE VALENCIAVES KATIA Attending Unavailable MARINA, MELODIE Primary Care Unavailable MARINA, MELODIE Primary Care Unavailable AVRIL, CHLOE WILLIAM KATIA Admitting Unavailable AVRIL, CHLOE WILLIAM KATIA Attending Unavailable MARINA, MELODIE Primary Care Unavailable AVRIL, CHLOE VALENCIAVES KATIA Referring Unavailable MARINA, MELODIE Primary Care Unavailable AVRIL, CHLOE WILLIAM KATIA Attending Unavailable MARINA, MELODIE Primary Care Unavailable AVRIL, CHLOE WILLIAM KATIA Attending Unavailable MARINA, MELODIE Primary Care Unavailable AVRIL, CHLOE VALENCIAVES KATIA Admitting Unavailable AVRIL, CHLOE WILLIAM KATIA Attending Unavailable AVRIL, CHLOE WILLIAM KATIA Referring Unavailable MARINA, MELODIE Primary Care Unavailable MELVA MARCH Consulting Unavailable AVRIL, CHLOE VALENCIAVES KATIA Referring Unavailable MARINA, MELODIE Primary Care Unavailable AVRIL, CHLOE WILLIAM KATIA Attending Unavailable MARINA, MELODIE Primary Care Unavailable AVRIL, CHLOE WILLIAM KATIA Referring Unavailable MARINA, MELODIE Primary Care Unavailable AVRIL, CHLOE WILLIAM KATIA Attending Unavailable MARINA, MELODIE Primary Care Unavailable AVRIL, CHLOE WILLIAM KATIA Referring Unavailable MARINA, MELODIE Primary Care Unavailable AVRIL, CHLOE WILLIAM KATIA Attending Unavailable AVRIL, CHLOE VALENCIAVES KATIA Referring Unavailable MARINA, MELODIE Primary Care Unavailable Marina VSC, Melodie Primary Care Unavailable Mark Anthony Blackburn Attending Unavailable Marina VSC, Melodie Primary Care Unavailable Jahaira Mario Referring Unavailable Jahaira Mario Attending Unavailable Florence Santos Consulting Unavailable Florence Santos Admitting Unavailable Fabrice Jean Attending Unavailable Yg Moreland Referring Unavailable Marina VSC, Melodie Primary Care Unavailable Yg Moreland Consulting Unavailable Marina VSC, Melodie Primary Care Unavailable Gin Carballo Attending Unavailable Marina VSC, Melodie Primary Care Unavailable Jacinto Hendrickson Attending Unavailabl e Marina VSC, Melodie Primary Care Unavailable Marina VSC, Melodie Referring Unavailable Friend, Fabrice Attending Unavailable Santos, Florence Admitting Unavailable Santos, Florence Consulting Unavailable Marina VSC, Melodie Primary Care Unavailable Alford, Michael Referring Unavailable Jopperi, Yg Attending Unavailable Beam VSC, Zebulun Attending Unavailable Marina VSC, Melodie Primary Care Unavailable Jopperi, Yg Attending Unavailable Santos, Florence Admitting Unavailable Santos, Florence Consulting Unavailable Marina VSC, Melodie Primary Care Unavailable Friend, Fabrice Attending Unavailable Jopperi, Yg Referring Unavailable Santos, Florence Admitting Unavailable Santos, Florence Attending Unavailable Marina VSC, Melodie Primary Care Unavailable Santos, Florence Consulting Unavailable Friend, Fabrice Attending Unavailable Jopperi, Yg Referring Unavailable Jopperi, Yg Consulting Unavailable Jopperi, Yg Attending Unavailable Marina VSC, Melodie Primary Care Unavailable Beam VSC, Zebulun Referring Unavailable Beam VSC, Zebulun Attending Unavailable Marina VSC, Melodie Primary Care Unavailable Aureliano Jiménez Attending Unavailable Aureliano Jiménez Referring Unavailable Marina VSC, Melodie Primary Care Unavailable Amy Rebolledo Attending Unavailable Marina VSC, Melodie Primary Care Unavailable Kancherla, Guy Referring Unavailable Carrie, [place] Attending Unavailable Beam VSC, Zebulun Referring Unavailable Beam VSC, Zebulun Attending Unavailable Marina VSC, Melodie Primary Care Unavailable Marina VSC, Melodie Primary Care Unavailable Friend, Fabrice Attending Unavailable Marina VSC, Melodie Primary Care Unavailable Juan Sultana Attending Unavailable Marina VSC, Melodie Referring Unavailable Marina VSC, Melodie Primary Care Unavailable Carrie, Elias Attending Unavailable Marina VSC, Melodie Primary Care Unavailable Juan Sultana Attending Unavailable Marina VSC, Melodie Referring Unavailable Jahaira Mario Attending Unavailable Marina VSC, Melodie Primary Care Unavailable Juan Sultana Attending Unavailable Marina VSC, Melodie Primary Care Unavailable Marina VSC, Melodie Primary Care Unavailable Marina VSC, Melodie Referring Unavailable Jahaira Mario Attending Unavailable Marina VSC, Melodie Primary Care Unavailable Marina VSC, Melodie Referring Unavailable Fatuma Simmons Attending Unavail able Marina VSC, Melodie Primary Care Unavailable Juan Sultana Attending Unavailable Marina VSC, Melodie Primary Care Unavailable Cheko Ortiz Attending Unavailable MEKA WEBB Attending Unavailable MARINA, MELODIE Primary Care Unavailable MINZTER, HEATHER H Referring Unavailable MINZTER, HEATHER H Attending Unavailable MARINA, MELODIE Primary Care Unavailable MARINA, MELODIE Primary Care Unavailable KOURTNEY PURDY Attending Unavailable SELF Referring Unavailable MARINA, MELODIE Primary Care Unavailable ROSA FLORES Attending Unavailable YOUNG, BILL Attending Unavailable MARINA, MELODIE Primary Care Unavailable VAISHNAVI SORIA Attending Unavailable MARINA, MELODIE Primary Care Unavailable YOUNGBILL Attending Unavailable SELF Referring Unavailable MARINA, MELODIE Primary Care Unavailable BILL WOODS Attending Unavailable MARINA, MELODIE Primary Care Unavailable MARINA, MELODIE Primary Care Unavailable BRANDI WOODSARY Referring Unavailable AMY FOWLER Attending Unavailable MARINA, MELODIE Primary Care Unavailable MARINA, MELODIE Primary Care Unavailable CIOCMILADYS ParedesE C Referring Unavailable FELECIA SORIAE Reggie Attending Unavailable MARINA, MELODIE Primary Care Unavailable MARINA, MELODIE Primary Care Unavailable JAVIER ROGERS Referring Unavailable MARINA, MELODIE Primary Care Unavailable MINZTER, HEATHER H Referring Unavailable MINZTER, HEATHER H Attending Unavailable YOUNG, BILL Attending Unavailable MARINA, MELODIE Primary Care Unavailable VAISHNAVI SORIA Attending Unavailable MARINA, MELODIE Primary Care Unavailable YOUNG, BILL Attending Unavailable MARINA, MELODIE Primary Care Unavailable SELF Referring Unavailable MARINA, MELODIE Primary Care Unavailable MINZTER, HEATHER H Attending Unavailable MARINA, MELODIE Primary Care Unavailable CIOCROSA Paredes Attending Unavailable MINZTER, HEATHER H Attending Unavailable MINZTER, HEATHER H Admitting Unavailable MARINA, MELODIE Primary Care Unavailable MARINA, MELODIE Primary Care Unavailable KEITH SQUIRES Attending Unavailable MARINA, MELODIE Primary Care Unavailable SELF Referring Unavailable FELECIA SORIAE E Attending Unavailable MARINA, MELODIE Primary Care Unavailable MARINA, MELODIE Primary Care Unavailable CIROSA BLANK Attending Unavailable MARINA, MELODIE Primary Care Unavailable MEKA WEBB Attending Unavailable MARINA, MELODIE Primary Care Unavailable MEKA WEBB Referring Unavailable MEKA WEBB Attending Unavailable MARINA, MELODIE Primary Care Unavailable Allergies Allergy Classification Reported Allergen(s) Allergy Type Date of Onset Reaction(s) Facility ARIPiprazole (2 sources) ARIPiprazole Drug Allergy 0 Other: See Comments [facility] Aspirin (2 sources) Aspirin Drug Allergy 4 Other: See Comments [facility] Iodine (and Iodine containting drugs) (2 sources) Iodine Drug Allergy 5 Intolerance [facility] Lincosamides (antibiotic) (2 sources) Clindamycin Drug Allergy 5 Intolerance [facility] metFORMIN (2 sources) metFORMIN Drug Allergy 0 GI Upset [facility] NSAIDs (2 sources) Indomethacin Drug Allergy 4 Other: See Comments [facility] Opioid Agonists (2 sources) Propoxyphene Drug Allergy 7 Other: See Comments [facility] Serotonin Reuptake Inhibitors (SSRIs) (2 sources) traZODone Drug Allergy 3 Intolerance [facility] Serotonin-1b and Serotonin-1d Receptor Agonists (2 sources) SUMAtriptan Drug Allergy 8 Vomiting [facility] (20 sources) Aspirin; Translations: [aspirin] Drug Allergy 4 Clindamycin (product), Other: See Comments [facility] (20 sources) Clindamycin; Translations: [clindamycin] Drug Allergy 5 Intolerance [facility] (20 sources) Indomethacin; Translations: [indomethacin] Drug Allergy 4 Other: See Comments [facility] (20 sources) Iodine; Translations: [iodine] Drug Allergy 5 Intolerance [facility] (20 sources) Propoxyphene; Translations: [propoxyphene] Drug Allergy 7 Other: See Comments [facility] (20 sources) SUMAtriptan; Translations: [sumatriptan] Drug Allergy 8 Vomiting [facility] (20 sources) ARIPiprazole; Translations: [ARIPIPRAZOLE] Drug Allergy 0 Other: See Comments [facility] (8 sources) Indomethacin; Translations: [indomethacin sodium] Drug Allergy 2 Hives [facility] (20 sources) metFORMIN; Translations: [METFORMIN] Drug Allergy 0 GI Upset [facility] (8 sources) Propoxyphene; Translations: [propoxyphene napsylate] Drug Allergy 2 Out of control [facility] (20 sources) Propoxyphene N-Acetaminophen; Translations: [PROPOXYPHENE N-ACETAMINOPHEN] Drug Intolerance 5 Intolerance [facility] (20 sources) Iodinated Contrast Media; Translations: [IODINATED CONTRAST MEDIA] Drug Allergy 0 Other: See Comments [facility] (20 sources) traZODone; Translations: [TRAZODONE] Drug Allergy 3 Intolerance [facility] (20 sources) Vancomycin; Translations: [VANCOMYCIN] Drug Allergy 4 Shortness of Breath [facility] (1 source) ARIPiprazole Drug Allergy 5 [facility] (1 source) Aspirin Drug Allergy 5 [facility] (1 source) Clindamycin Drug Allergy 5 [facility] (1 source) Indomethacin Drug Allergy 5 [facility] (1 source) Iodine Drug Allergy 5 [facility] (1 source) metFORMIN Drug Allergy 5 [facility] (1 source) SUMAtriptan Drug Allergy 5 [facility] (1 source) traZODone Drug Allergy 5 [facility] (1 source) Vancomycin Drug Allergy 5 [facility] Medications Current Medications Medication Drug Class(es) Dates Sig (Normalized) Sig (Original) acetaminophen 500 mg oral tablet (20 sources) Start: 08-05-2024 take 2 tablets by mouth every eight hours as needed acetaminophen (TYLENOL EXTRA STRENGTH) 500 mg tablet Take 2 tablets by mouth every 8 hours as needed for pain. FOR PAIN. 08/05/2024 Active Start: 07-29-2020 take 1000 mg by mout h three times daily Acetaminophen Active 1000 MG PO THREE TIMES A DAY July 29, 2020 11:16am alternate with ibuprofen End: 08-05-2024 take 2 tablets by mouth every six hours as needed acetaminophen (TYLENOL) 500 mg tablet Take 1,000 mg by mouth every 6 hours as needed for pain. 08/05/2024 Discontinued take 1 tablet by kemi th every six hours as needed acetaminophen (TYLENOL) 500 mg tablet Take 500 mg by mouth every 6 hours as needed for pain. Active Comment on above: Take 500 mg by mouth every 6 hours as needed for pain. acetaminophen 325 mg / HYDROcodone bitartrate 5 mg oral tablet (20 sources) Opioid Agonist Start: 11-05-2021 End: 11-20-2021 take 1 tablet by mouth every eight hours Hydrocodone-Acet aminophen Active 1 TABLET PO Q8H 10 November 20, 2021 Start: 08-07-2020 End: 08-14-2020 take 1 tablet by mouth twice daily Hydrocodone-Acetaminophen Discontinued 1 TABLET PO TWICE A DAY August 07, 2020 August 14, 2020 8:08am Start: 08-07-2020 End: 08-14-2020 Start: 06-21-2020 End: 06-24-2020 take 1 tablet by mouth every six hours as needed Hydrocodone-Acetaminophen Discontinued 1 TABLET PO EVERY 6 HOURS NEEDED 01 27June 21, 2020 June 24, 2020 12:03am Start: 06-21-2020 End: 06-24-2020 Start: 04-20-2020 End: 04-23-2020 Start: 04-20-2020 End: 04-23-2020 take 1 tablet by mouth every six hours as needed Hydrocodone-Acetaminophen Discontinued 1 TABLET PO EVERY 6 HOURS NEEDED 01 27April 20, 2020 April 23, 2020 12:02am Start: 01-02-2020 End: 01-05-2020 Start: 01-02-2020 End: 01-05-2020 take 1 tablet by mouth every six hours as needed Hydrocodone-Acetaminophen Discontinued 1 TABLET PO EVERY 6 HOURS NEEDED 01 27January 02, 2020 January 04, 2020 11:02pm End: 12-10-2022 take 1 tablet by mouth every eight hours as needed HYDROcodone-acetaminophen (NORCO) 5-325 mg per tablet Take 1 tablet by mouth every 8 hours as needed for pain. 0 12/10/2022 Discontinued (Course of therapy completed) Comment on above: Take 1 tablet by kemi every 8 hours as needed for pain. acetaminophen 325 mg / oxyCODONE hydrochloride 5 mg oral tablet (20 sources) Opioid Agonist Start: 11-15-2024 End: 12-15-2024 oxyCODONE-acetaminoph en (PERCOCET) 5-325 mg tablet Indications: Other chronic pain , Neck pain, chronic 1/2-1 tab po daily prn pain - 18 tablets total 18 tablet 11/15/2024 12/15/2024 Active Start: 08-17-2024 End: 09-16-2024 oxyCODONE-acetaminophen (PER COCET) 5-325 mg tablet Indications: Other chronic pain , Neck pain, chronic 1/2-1 tab po daily prn pain - 18 tablets total 18 tablet 08/17/2024 09/16/2024 Active Start: 04-08-2024 End: 05-08-2024 oxyCODONE-acetaminophen (PER COCET) 5-325 mg tablet Indications: Other chronic pain , Neck pain, chronic 1/2-1 tab po daily prn pain - 18 tablets total 18 tablet 04/08/2024 05/08/2024 Active Start: 12-16-2023 End: 01-07-2024 oxyCODONE-acetaminophen (PER COCET) 5-325 mg tablet Indications: Other chronic pain , Neck pain, chronic 1/2-1 tab po daily prn pain - 18 tablets total Patient should start on December 16, 2023. 18 tablet 12/16/2023 01/07/2024 Active Start: 09-15-2023 End: 10-15-2023 oxyCODONE-acetaminophen (PER COCET) 5-325 mg tablet Indications: Other chronic pain , Neck pain, chronic 1/2-1 tab po daily prn pain - 18 tablets total 18 tablet 0 09/15/2023 10/15/2023 Active Start: 12-10-2022 End: 07-16-2023 take 0.5 tablet by mouth once daily as needed for pain oxyCODONE-acetaminophen (PERCOCET) 5-325 mg tablet Indications: Other chronic pain 1/2 tab po daily prn pain 15 tablet 12/10/2022 03/11/2023 Discontinued Start: 08-04-2020 End: 08-07-2020 take 1 tablet by mouth every six hours as needed Oxycodone-Acetaminophen Discontinued 1 TABLET PO EVERY 6 HOURS NEEDED 03 29August 04, 2020 August 06, 2020 11:03pm Start: 08-04-2020 End: 08-07-2020 Start: 06-04-2017 End: 06-05-2017 Start: 06-04-2017 End: 06-05-2017 take 1 tablet by mouth twice daily Oxycodone-Acetaminophen Discontinued 1 TABLET PO TWICE A DAY June 04, 2017 12:00am June 05, 2017 11:27am Start: 10-21-2016 End: 01-28-2017 Start: 10-21-2016 End: 01-28-2017 Oxycodone-Acetaminophen Disc ontinued 1 EACH PO EVERY 4 HOURS NEEDED October 20, 2016 11:00pm January 28, 2017 8:45am Start: 03-27-2016 End: 05-12-2016 Start: 03-27-2016 End: 05-12-2016 take 1 tablet by mouth every four hours as needed Oxycodone-Acetaminophen Discontinued 1 - 2 TABLET PO EVERY 4 HOURS NEEDED April 11, 2016 11:49am May 12, 2016 1:38pm Start: 07-18-2015 End: 07-18-2015 Start: 07-18-2015 End: 07-18-2015 take 1 tablet by mouth every four hours as needed Oxycodone-Acetaminophen Discontinued 1 - 2 TABLET PO EVERY 4 HOURS NEEDED July 17, 2015 11:00pm July 18, 2015 9:41am Start: 06-29-2014 End: 01-26-2015 Start: 06-29-2014 End: 01-26-2015 take 1 tablet by mouth every eight hours as needed Oxycodone-Acetaminophen Discontinued 1 TABLET PO EVERY 8 HOURS NEEDED June 29, 2014 12:00am January 26, 2015 3:57pm Comment on above: 1/2 tab po daily prn pain 1/2-1 tab po daily p rn pain - 16 tablets total albuterol 0.83 mg/ml inhalation solution (20 sources) beta2-Adrenergic Agonist Start: 11-20-2021 take 2.5 mg by inhalation every two hours as needed Albuterol Sulfate Active 2.5 MG INHALATION EVERY 2 HOURS NEEDED November 19, 2021 11:00pm Start: 09-20-2021 End: 11-20-2021 take 1 puff(s) by inhalation every six hours as needed Albuterol Sulfate Discontinued 2 PUFF INHALATION EVERY 6 HOURS NEEDED 8.September 20, 2021 9:22am November 20, 2021 12:56pm Start: 09-20-2021 take 1 puff(s) by in halation every six hours as needed Albuterol Sulfate Active 2 PUFF INHALATION EVERY 6 HOURS NEEDED 8.September 20, 2021 10:22am Start: 10-23-2017 End: 09-20-2021 take 1 puff(s) by inhalation every six hours as needed Albuterol Sulfate Discontinued 2 PUFF INHALATION EVERY 6 HOURS NEEDED October 23, 2017 10:51pm September 20, 2021 10:25am Start: 10-23-2017 Start: 10-23-2017 End: 09-20-2021 take 1 puff(s) by inhalation every six hours as needed Albuterol Sulfate Discontinued 2 PUFF INHALATION EVERY 6 HOURS NEEDED October 22, 2017 11:00pm September 20, 2021 9:25am Start: 10-23-2017 End: 09-20-2021 take 1 puff(s) by inhalation every six hours as needed Albuterol Sulfate Discontinued 2 PUFF INHALATION EVERY 6 HOURS NEEDED October 23, 2017 12:00am September 20, 2021 10:25am Start: 06-13-2017 take 1 dose by inhal ation every two hours as needed albuterol 2.5 mg/3 mL (0.083%) inhalation solution Dose : 2.5 mg = 3 mL, Nebulized, q2h, PRN as needed for wheezing Start Date: 06/13/17 Status: Ordered take 2 puff(s) by in halation every four hours as needed for wheezing albuterol HFA (PROVENTIL HFA, VENTOLIN HFA) 90 mcg/actuation inhaler Inhale 2 Puffs as instructed every 4 hours as needed for wheezing/shortness of breath. Active ALBUTEROL SULFAT E (PROAIR HFA INHALATION) Inhale as instructed. 0 Active Comment on above: Inhale as instructed . Inhale 2 Puffs as in structed every 4 hours as needed for wheezing/shortness of breath. apixaban 5 mg oral tablet (20 sources) Factor Xa Inhibitor Start: 01-14-2022 End: 01-14-2022 take 1 tablet by mouth once daily Apixaban (Eliquis) 5 mg tablet Active 5 MG PO DAILY January 14, 2022 1:00pm Start: 11-19-2021 End: 01-14-2022 take 1 tablet by mouth twice daily Apixaban (Eliquis) 5 mg tablet Discontinued 5 MG PO TWICE A DAY November 18, 2021 11:00pm January 14, 2022 12:28pm Start: 03-19-2021 End: 04-04-2021 Start: 03-19-2021 End: 08-06-2021 take 1 tablet by mouth twice daily Apixaban (Eliquis) 5 mg tablet Discontinued 5 MG PO TWICE A DAY April 22, 2021 4:55pm August 06, 2021 2:04pm Comment on above: Take 5 mg by mouth o nce daily. Take 5 mg by mouth t wice daily. ascorbic acid 500 mg oral tablet (20 sources) Vitamin C Start: 10-23-2020 take 1 tablet by mouth once daily ascorbic acid, vitamin C, (VITAMIN C) 500 mg tablet Take 1 tablet by mouth once daily. 10/23/2020 Active Start: 08-17-2020 End: 09-12-2021 take 500 mg by mouth once daily Ascorbic Acid (Vitamin C) Active 500 MG PO DAILY September 12, 2021 2:20pm Comment on above: Take 1 tablet by kemi th once daily. aspirin 81 mg delayed release oral tablet (20 sources) Platelet Aggregation Inhibitor, Nonsteroidal Anti-inflammatory Drug Start: 04-01-2022 take 1 tablet by mouth once daily Aspirin (Adult Aspirin Regimen) 81 mg tablet,delayed release (DR/EC) Active 81 MG PO DAILY April 01, 2022 12:00am Start: 11-16-2021 End: 01-14-2022 take 1 tablet by mouth once daily Aspirin Discontinued 1 TABLET PO DAILY November 15, 2021 11:00pm January 14, 2022 12:26pm Start: 06-13-2017 aspirin 81 mg oral delayed release tablet Dose : 81 mg = 1 tab(s), Oral, Daily Start Date: 06/13/17 Status: Ordered Start: 10-21-2016 End: 11-07-2020 take 81 mg by mouth once daily Aspirin Discontinued 81 MG PO DAILY October 20, 2016 11:00pm November 07, 2020 3:56pm Start: 08-06-2013 End: 10-01-2013 take 81 mg by mouth once daily Aspirin Discontinued 81 MG PO DAILY@0800 August 05, 2013 11:00pm October 01, 2013 12:22pm Comment on above: Take 81 mg by mouth once daily. atorvastatin 40 mg oral tablet (20 sources) HMG-CoA Reductase Inhibitor Start: 1 End: 2 take 1 tablet by mouth once daily atorvastatin (LIPITOR) 40 mg tablet Take 40 mg by mouth once daily. 12/28/2020 Active Comment on above: Take 40 mg by mouth once daily. benoxinate hydrochloride 4 mg/ml / fluorescein sodium 3 mg/ml ophthalmic solution (3 sources) Diagnostic Dye Start: 5 End: 5 fluorescein-benoxina te 0.3-0.4 % 1 Drop (FLURESS) Start: 11-03-2023 End: 11-04-2023 fluorescein-benoxinate 0.3-0 .4 % 1 Drop (FLURESS) Blood-Glucose Meter (12 sources) Start: 09-21-2024 Blood-Glucose Meter DISPENSE ONE METER KIT 1 each 09/21/2024 Active buPROPion hydrochloride 100 mg oral tablet (1 source) Aminoketone Start: 06-13-2017 buPROPion 100 mg oral tablet Dose : 100 mg = 1 tab(s), Oral, BID, # 60 tab(s) Start Date: 06/13/17 Status: Ordered carvedilol 6.25 mg oral tablet (20 sources) alpha-Adrenergic Marielle, beta-Adrenergic Marielle Start: 01-14-2022 take 6.25 mg by mouth once daily at mealtime Carvedilol Active 6.25 MG PO DAILY January 14, 2022 12:20pm must administer with a meal/food Start: 11-05-2021 End: 11-08-2021 take 12.5 mg by mouth twice daily at mealtime Carvedilol Discontinued 12.5 MG PO TWICE A DAY November 04, 2021 11:00pm November 08, 2021 10:42am must administer with a meal/food Start: 10-26-2021 End: 02-11-2023 take 1 tablet by mouth twice daily at mealtime carvedilol (COREG) 6.25 mg tablet Take 1 tablet by mouth twice daily with meals for 14 days. 28 tablet 10/26/2021 02/11/2023 Discontinued Start: 02-05-2021 End: 11-05-2021 take 25 mg by mouth twice daily Carvedilol Discontinue d 25 MG PO TWICE A DAY 180 May 21, 2021 9:58am November 05, 2021 9:26am Start: 11-07-2020 End: 02-05-2021 take 12.5 mg by mouth twice daily Carvedilol Discontinued 12.5 MG PO TWICE A DAY 60 November 30, 2020 3:21pm February 05, 2021 2:23pm Start: 10-23-2020 take 4 tablets by mo uth twice daily at mealtime carvedilol (COREG) 3.125 mg tablet Take 4 tablets by mouth twice daily with meals. 0 10/23/2020 Active Start: 09-21-2019 End: 11-07-2020 take 12.5 mg by mouth twice daily Carvedilol Discontinued 12.5 MG PO TWICE A DAY 60 September 18, 2020 11:00am November 07, 2020 1:17pm Start: 09-21-2019 End: 08-28-2020 take 6.25 mg by mouth twice daily Carvedilol Discontinued 6.25 MG PO TWICE A DAY August 14, 2020 9:10pm August 28, 2020 2:55pm Start: 10-23-2017 End: 09-21-2019 Start: 10-23-2017 End: 09-21-2019 take 3.125 mg by mouth twice daily Carvedilol Discontinued 3.125 MG PO TWICE A DAY 60 November 10, 2018 3:53pm September 21, 2019 1:14pm Start: 06-13-2017 carvedilol 3.1 25 mg oral tablet Dose : 3.125 mg = 1 tab(s), Oral, BID, # 180 tab(s) Start Date: 06/13/17 Status: Ordered Start: 05-06-2017 End: 05-18-2017 take 3.125 mg by mouth twice daily Carvedilol Discontinued 3.125 MG PO TWICE A DAY 60 May 06, 2017 4:12pm May 18, 2017 7:31pm Start: 05-06-2017 End: 05-18-2017 Start: 11-16-2016 End: 05-06-2017 Start: 11-16-2016 End: 05-06-2017 take 3.125 mg by mouth twice daily Carvedilol Discontinued 3.125 MG PO TWICE A DAY November 15, 2016 11:00pm May 06, 2017 4:13pm Start: 04-11-2016 End: 08-04-2016 Start: 04-11-2016 End: 08-04-2016 take 3.125 mg by mouth twice daily Carvedilol Discontinued 3.125 MG PO TWICE A DAY April 11, 2016 12:00am August 04, 2016 11:29am Comment on above: Take 4 tablets by mo ut twice daily with meals. Take 1 tablet by kemi twice daily with meals for 14 days. Take 12.5 mg by mout twice daily with meals. cholecalciferol 0.125 mg oral capsule (20 sources) Vitamin D Start: take 125 ug by mouth once daily Cholecalciferol (Vitamin D3) Active 125 MCG PO DAILY November 04, 2021 11:00pm Start: 09-18-2020 End: 11-05-2021 take 50 ug by mouth once daily Cholecalciferol (Vitami n D3) Discontinued 50 MCG PO DAILY September 17, 2020 11:00pm November 05, 2021 9:28am Start: 10-15-2017 take 1 capsule by mo [facility] once daily Cholecalciferol, Vitamin D3, 5,000 unit cap Indications: vitamin D deficiency Take 1 capsule by mouth once daily. 90 capsule 3 10/15/2017 Active Comment on above: Take 1 capsule by mo [facility] once daily. citalopram 10 mg oral tablet (2 sources) Serotonin Reuptake Inhibitor Start: 06-13-2017 CeleXA 20 mg oral tablet Dose : 20 mg = 1 tab(s), Oral, qDay, # 30 tab(s) Start Date: 06/13/17 Status: Ordered Start: 06-13-2017 CeleXA 10 mg o ral tablet Dose : 10 mg = 1 tab(s), Oral, qDay, # 30 tab(s) Start Date: 06/13/17 Status: Ordered dicyclomine hydrochloride 20 mg oral tablet (20 sources) Anticholinergic Start: 02-13-2020 End: 10-10-2021 take 1 tablet by mouth every twelve hours as needed dicyclomine (BENTYL) 20 mg tablet Take 20 mg by mouth twice daily as needed. 11/06/2020 Active Start: 10-04-2014 End: 10-08-2014 take 20 mg by mouth three times daily before mealtime Dicyclomine Discontinued 20 MG PO THREE TIMES DAILY BEFORE MEALS October 03, 2014 11:40pm October 08, 2014 1:15am Comment on above: Take 20 mg by mouth as needed. Take 20 mg by mouth twice daily as needed. donepezil hydrochloride 10 mg oral tablet (20 sources) Start: End: take 1 tablet by mouth once daily Donepezil (Aricept) 10 mg tablet Discontinued 10 MG PO DAILY 90 September 18, 2020 7:41am September 23, 2020 4:16pm Start: 07-01-2017 End: 10-27-2024 take 2 tablets by mouth once daily donepezil (ARICEPT) 10 mg tablet Take 2 tablets by mouth once daily. 180 tablet 11 10/27/2024 Active Start: 06-13-2017 take 1 dose by mouth once daily at bedtime donepezil Dose : 20 mg =, Oral, qHS Start Date: 06/13/17 Status: Ordered Comment on above: Take 2 tablets by [facility] once daily. doxycycline monohydrate 100 mg oral capsule (20 sources) Tetracycline-clas s Drug Start: 02-18-2023 take 1 capsule by mouth twice daily doxycycline monohydrate (MONODOX) 100 mg capsule Indications: Folliculitis Take 1 capsule by mouth two times a day. When needed for a flare-up. 14 capsule 11 02/18/2023 Active Start: 01-23-2023 End: 01-30-2023 take 1 capsule by mouth twice daily doxycycline monohydrate (MONODOX) 100 mg capsule Indications: Folliculitis Take 1 capsule by mouth two times a day for 7 days. 14 capsule 0 01/23/2023 01/30/2023 End: 08-06-2023 take 1 capsule by mouth twice daily doxycycline hyclate (VIBRAMYCIN) 100 mg capsule Take 100 mg by mouth two times a day. starting 12/08/2023 Active Comment on above: [facility] a [facility] for 7 days. Take 1 capsule by mo [facility] two times a day. When needed for a flare-up. Take 100 mg by mouth two times a day. DULoxetine 30 mg delayed release oral capsule (20 sources) Serotonin and Norepinephrine Reuptake Inhibitor Start: 1 End: 2 take 1 capsule by mouth twice daily DULoxetine (CYMBALTA) 30 mg capsule Take 30 mg by mouth twice daily. 02/06/2021 Active Start: 10-06-2017 End: 10-06-2017 Start: 10-06-2017 End: 10-06-2017 take 30 mg by mouth once daily Duloxetine Discontinued 30 MG PO DAILY October 05, 2017 11:00pm October 06, 2017 8:29am Comment on above: Take 30 mg by mouth twice daily. eluxadoline 100 mg oral tablet (20 sources) mu-Opioid Receptor Agonist Start: 11-05-2021 End: 04-01-2022 take 100 mg by mouth once daily Eluxadoline Discontinued 100 MG PO DAILY November 05, 2021 9:31am April 01, 2022 10:45am Start: 06-13-2017 eluxadoline 75 mg oral tablet Dose : 75 mg = 1 tab(s), Oral, BID Start Date: 06/13/17 Status: Ordered Start: 10-21-2016 End: 06-16-2023 take 100 mg by mouth twice daily Eluxadoline Active 100 MG PO TWICE A DAY April 01, 2022 10:38am Start: 10-21-2016 End: 10-06-2017 take 75 mg by mouth twice daily Eluxadoline Discontinued 75 MG PO TWICE A DAY October 20, 2016 11:00pm October 06, 2017 8:29am Comment on above: Take 100 mg by mouth twice daily. Take 100 mg by mouth as needed. estradiol 1 mg oral tablet (11 sources) Estrogen Start: 06-13-2017 estradiol 1 mg oral tablet Dose : 1 mg = 1 tab(s), Oral, Daily, # 30 tab(s) Start Date: 06/13/17 Status: Ordered Start: 03-27-2016 End: 03-31-2016 take 1 mg by mouth once daily Estradiol Discontinued 1 MG PO DAILY March 27, 2016 12:00am March 31, 2016 1:18pm take 1 tablet by kemi th once daily Estradiol (ESTRACE) 0.5 mg tablet Take 0.5 mg by mouth once daily. 0 Active Comment on above: Take 0.5 mg by mouth once daily. ferrous sulfate 325 mg oral tablet (20 sources) Start: 01-22-2024 End: 06-21-2024 take 1 tablet by mouth once daily ferrous sulfate 325 mg (65 mg iron) tablet Take 1 tablet by mouth once daily. 30 tablet 3 02/22/2024 06/21/2024 Active Start: 11-05-2021 take 325 mg by mouth every other day Ferrous Sulfate Active 325 MG PO every other day November 05, 2021 9:29am Start: 10-26-2021 ferrous sulfat e 325 mg (65 mg iron) tablet Take 1 tablet by mouth every 48 hours. 10/26/2021 Active Start: 06-26-2021 End: 11-05-2021 take 325 mg by mouth once daily Ferrous Sulfate Discon tinued 325 MG PO DAILY June 26, 2021 12:00am November 05, 2021 9:38am Start: 08-17-2020 End: 01-30-2021 take 1 tablet by mouth once daily ferrous sulfate 325 mg (65 mg iron) tablet Take 1 tablet by mouth once daily. 0 10/23/2020 Active Start: 08-17-2020 End: 01-30-2021 take 325 mg by mouth once daily Ferrous Sulfate Discon tinued 325 MG PO DAILY August 16, 2020 11:00pm January 30, 2021 9:32am Comment on above: Take 1 tablet by kemi th once daily. Take 1 tablet by kemi th every 48 hours. flash glucose sensor (FREESTYLE JANAY 2 SENSOR) kit (20 sources) Start: 08-06-2022 flash glucose sensor (FREESTYLE JANAY 2 SENSOR) kit Change sensor every 14 days. USE FOR CONTINUOUS GLUCOSE MONITORING. MULTIPLE INSULIN INJECTIONS. E11.9 7 Kit 3 08/06/2022 Suspended Start: 08-06-2022 flash glucose sensor (FREESTYLE JANAY 2 SENSOR) kit Change sensor every 14 days. USE FOR CONTINUOUS GLUCOSE MONITORING. MULTIPLE INSULIN INJECTIONS. E11.9 7 Kit 3 08/06/2022 Active Comment on above: Change sensor every 14 days. USE FOR CONTINUOUS GLUCOSE MONITORING. MULTIPLE INSULIN INJECTIONS. E11.9 fluorometholone 1 mg/ml ophthalmic suspension (20 sources) Corticosteroid Start: End: fluorometholone (FML LIQUID FILM) 0.1 % ophthalmic suspension Instill 1 drop in both eyes twice a day 5 mL 2 11/03/2023 Active furosemide 20 mg oral tablet (20 sources) Loop Diuretic Start: take 1 tablet by mouth once daily as needed for edema furosemide (LASIX) 20 mg tablet Take 1 tablet by mouth once daily. PRN LE Edema 08/06/2023 Active Start: 12-24-2021 take 20 mg by mouth once daily in the morning Furosemide Active 20 MG PO EVERY MORNING December 23, 2021 11:00pm Start: 10-19-2017 End: 08-21-2019 take 40 mg by mouth once daily Furosemide Discontinued 40 MG PO DAILY October 18, 2017 11:00pm August 21, 2019 11:46am Start: 06-22-2017 End: 10-06-2017 take 20 mg by mouth once daily as needed Furosemide Discontinued 20 MG PO DAILY NEEDED June 22, 2017 12:00am October 06, 2017 8:28am Start: 04-01-2017 End: 05-18-2017 take 20 mg by mouth once daily in the morning Furosemide Discontinued 20 MG PO EVERY MORNING April 14, 2017 4:00pm May 18, 2017 7:31pm Start: 04-01-2017 End: 06-03-2017 take 40 mg by mouth once daily in the morning Furosemide Discontinued 40 MG PO EVERY MORNING May 18, 2017 7:31pm June 03, 2017 9:33am Start: 10-21-2016 End: 04-01-2017 take 40 mg by mouth once daily Furosemide Discontinued 40 MG PO DAILY October 20, 2016 11:00pm April 01, 2017 5:48pm Comment on above: Take 1 tablet by kemi th once daily. PRN LE Edema gabapentin 100 mg oral capsule (20 sources) Anti-epileptic Agent Start: 10-06-2024 gabapentin (NEURONTIN) 100 mg capsule TAKE 1 CAPSULE BY MOUTH at NIGHT for restless legs 10/06/2024 Active Start: 03-31-2016 End: 05-12-2016 take 600 mg by mouth three times daily Gabapentin Discontinued 600 MG PO THREE TIMES A DAY May 09, 2016 12:19am May 12, 2016 1:32pm Start: 03-27-2016 End: 03-31-2016 take 1 tablet by mouth once daily Gabapentin Enacarbil (Horizant) 600 MG Tablet.Er Discontinued 600 MG PO DAILY March 27, 2016 12:00am March 31, 2016 1:18pm glimepiride 4 mg oral tablet (20 sources) Sulfonylurea Start: 03-04-2022 End: 03-04-2022 take 4 mg by mouth once daily Glimepiride Active 4 MG PO DAILY 60 March 04, 2022 2:29pm Hold if glucose less than 130 mg/dl Start: 10-21-2016 End: 03-04-2022 take 4 mg by mouth twice daily Glimepiride Discontinue d 4 MG PO TWICE A DAY 60 September 12, 2021 7:49am March 04, 2022 2:17pm Hold if glucose less than 130 mg/dl Start: 05-07-2015 End: 06-24-2015 take 4 mg by mouth twice daily Glimepiride Discontinue d 4 MG PO TWICE A DAY May 07, 2015 12:00am June 24, 2015 11:34am Start: 06-29-2014 End: 08-06-2022 take 4 mg by mouth twice daily Glimepiride Discontinue d 4 MG PO TWICE A DAY June 29, 2014 12:00am January 26, 2015 3:47pm Comment on above: Take 4 mg by mouth t wice daily with meals. hydrOXYzine hydrochloride 50 mg oral tablet (20 sources) Antihistamine Start: 10-01-19 take 1 tablet by mouth every twelve hours hydrOXYzine HCl (ATARAX) 50 mg tablet Take 1 tablet by mouth every 12 hours. 09/30/2024 Active Start: 01-22-2024 End: 03-23-2024 take 1 tablet by mouth twice daily hydrOXYzine HCl (ATARAX) 50 mg tablet Take 1 tablet by mouth two times a day. 60 tablet 02/22/2024 03/23/2024 Active Start: 01-27-2022 End: 02-13-2022 take 50 mg by mouth twice daily Hydroxyzine Hcl Active 50 MG PO TWICE A DAY 60 February 13, 2022 1:50pm Start: 10-17-2021 End: 11-20-2021 take 50 mg by mouth four times daily Hydroxyzine Hcl Discontinued 50 MG PO .QID 120 October 17, 2021 5:39pm November 20, 2021 12:59pm Start: 12-26-2019 End: 08-17-2020 take 50 mg by mouth four times daily Hydroxyzine Hcl Discontinued 50 MG PO 4 TIMES DAILY December 25, 2019 11:00pm August 17, 2020 9:43am Start: 05-20-2019 End: 10-17-2021 take 1 tablet by mouth every eight hours as needed hydrOXYzine HCl (ATARAX) 50 mg tablet Take 1 tablet by mouth three times daily as needed. 05/20/2019 Active Comment on above: Take 1 tablet by kemi three times daily as needed. insulin detemir (8 sources) Insulin Analog Start: 06-13-2017 Levemir See Instructions, Subcutaneous, 0 Refill(s) Start Date: 06/13/17 Status: Ordered Start: 11-01-2014 End: 01-26-2015 Start: 11-01-2014 End: 01-26-2015 Insulin Detemir U-100 (Levem ir (Bkc)) 100 UNITS/ML Insuln.Pen Discontinued 30 UNITS SC DAILY October 31, 2014 11:00pm January 26, 2015 3:49pm 3 ml insulin lispro 100 unt/ml pen injector (20 sources) Insulin Analog Start: 08-07-2022 End: 09-21-2024 insulin lispro (HUMALOG KWIKPEN INSULIN) 100 unit/mL Use with meals based on PRE meal blood sugar SLIDING SCALE as needed #1 (1 for 50 over 150) ~20 units daily 18 mL 3 09/21/2024 Active Start: 07-14-2022 End: 08-06-2022 HUMALOG KWIKPEN INSULIN 100 unit/mL Start: 01-14-2022 End: 04-01-2022 Insulin Lispro (Humalog U-10 0 Insulin) 100 unit/mL solution Discontinued 1 sliding scale dose SC Use as Directed January 13, 2022 11:00pm April 01, 2022 11:21am 180-200=2u, 201-250=3u, 251-300=4u, 301-350=5u, 351-400=6u, 401-450=7u, >450 notify PCP Comment on above: Use with meals based on PRE meal blood sugar SLIDING SCALE as needed #1 (1 unit for every 50 over 150) TDD 20 units Use with meals based on PRE meal blood sugar SLIDING SCALE as needed #1 (1 for 50 over 150) ~20 units daily 24 hr isosorbide mononitrate 30 mg extended release oral tablet (20 sources) Nitrate Vasodilator Start: End: take 1 tablet by mouth twice daily isosorbide mononitrate ER (IMDUR) 30 mg 24 hr tablet Take 1 tablet by mouth two times a day. 60 tablet 3 01/22/2024 Active Start: 01-14-2022 take 30 mg by mouth twice rena y Isosorbide Mononitrate Active 30 MG PO TWICE A DAY January 14, 2022 12:42pm Start: 11-01-2021 End: 01-14-2022 take 1 tablet by mouth once daily isosorbide mononitrate ER (IMDUR) 30 mg 24 hr tablet Take 1 tablet by mouth once daily. 30 tablet 11/01/2021 Active Start: 10-23-2020 take 2 tablets by mo uth once daily isosorbide mononitrate ER (IMDUR) 30 mg 24 hr tablet Take 2 tablets by mouth once daily. 0 10/23/2020 Active Start: 08-06-2020 End: 11-05-2021 Isosorbide Mononitrate Disco ntinued 60 MG PO TWICE A DAY 360 July 09, 2021 11:56am November 05, 2021 9:24am two twice a day Start: 08-06-2020 End: 10-08-2020 take 30 mg by mouth once daily Isosorbide Mononitrate Discontinued 30 MG PO DAILY 30 August 05, 2020 11:00pm October 08, 2020 2:06pm Start: 10-06-2017 End: 08-17-2019 take 30 mg by mouth once daily Isosorbide Mononitrate Discontinued 30 MG PO DAILY 30 August 09, 2018 7:37pm August 17, 2019 4:25pm Start: 06-13-2017 End: 05-08-2021 take 30 mg by mouth twice daily Isosorbide Mononitrate Discontinued 30 MG PO TWICE A DAY 60 October 08, 2020 2:05pm May 08, 2021 10:53am Start: 10-21-2016 End: 06-02-2017 take 30 mg by mouth once daily Isosorbide Mononitrate Discontinued 30 MG PO DAILY April 14, 2017 4:01pm June 02, 2017 2:57pm Comment on above: Take 2 tablets by mo lah once daily. Take 1 tablet by kemi th once daily. lactobacillus acidophilus 10 [id number] unt / pectin 10 mg oral capsule (13 sources) Start: 09-23-2020 Start: 09-23-2020 End: 04-01-2022 take 1 capsule by mouth once daily Acidophilus-Pectin, Bacon Active 1 CAP PO DAILY April 01, 2022 11:24am lidocaine 0.05 mg/mg medicated patch (20 sources) Antiarrhythmic, Amide Local Anesthetic Start: 07-12-2024 End: 10-04-2024 lidocaine (LIDODERM) 5 % Apply 1-2 patches as directed once daily. TO AFFECTED AREA. REMOVE AFTER 12 HOURS. 60 patch 2 10/05/2024 Active Start: 04-13-2023 End: 07-08-2024 lidocaine (LIDODERM) 5 % Janice ly 1-2 Patches as directed once daily. TO AFFECTED AREA. REMOVE AFTER 12 HOURS. 60 Patch 2 04/12/2024 07/08/2024 Discontinued Comment on above: Apply 1 Patch as dir ected once daily. TO AFFECTED AREA. REMOVE AFTER 12 HOURS. lisinopril 20 mg oral tablet (20 sources) Angiotensin Converting Enzyme Inhibitor Start: 01-14-2022 take 20 mg by mouth once daily Lisinopril Active 20 MG PO DAILY January 14, 2022 12:59pm Start: 06-22-2021 End: 07-03-2021 Lisinopril Discontinued 40 M G PO TWICE A DAY June 22, 2021 12:07pm July 03, 2021 10:47am Hold for SBP less than 120 mmHg Start: 01-30-2021 End: 02-20-2021 Lisinopril Discontinued 20 M G PO DAILY January 30, 2021 9:45am February 20, 2021 12:54pm Hold for SBP less than 120 mmHg Start: 01-30-2021 End: 01-14-2022 Lisinopril Discontinued 20 M G PO TWICE A DAY April 02, 2021 3:18pm June 22, 2021 12:07pm Hold for SBP less than 120 mmHg Start: 12-25-2020 End: 01-30-2021 Lisinopril Discontinued 10 M G PO DAILY December 25, 2020 2:36pm January 30, 2021 9:46am Hold for SBP less than 120 mmHg Start: 08-17-2020 End: 12-25-2020 Lisinopril Discontinued 5 MG PO DAILY September 18, 2020 10:59am December 25, 2020 2:37pm Hold for SBP less than 120 mmHg Start: 10-21-2016 End: 12-25-2020 take 2.5 mg by mouth once daily Lisinopril Discontinued 2.5 MG PO DAILY August 16, 2019 1:16pm August 17, 2020 9:50am Start: 03-27-2016 End: 04-11-2016 Start: 03-27-2016 End: 04-11-2016 take 10 mg by mouth once daily Lisinopril Discontinued 10 MG PO DAILY March 27, 2016 12:00am April 11, 2016 11:48am take 2.5 mg by mouth once daily lisinopril (ZESTRIL, PRINIVIL) 5 mg tablet Take 2.5 mg by mouth once daily. 0 Active Comment on above: Take 2.5 mg by mouth once daily. loperamide hydrochloride 2 mg oral tablet (2 sources) Opioid Agonist Start: 2021 take 1 tablet by mouth every six hours Loperamide (Anti-Diarrheal (Loperamide)) 2 mg tablet Active 2 MG PO EVERY 6 HOURS December 23, 2021 11:00pm losartan potassium 50 mg oral tablet (20 sources) Angiotensin 2 Receptor Marielle Start: 2022 losartan (COZAAR) 50 mg tablet 50 mg twice daily. 01/06/2023 Active Comment on above: 50 mg twice daily. medroxyPROGESTERone acetate 2.5 mg oral tablet (18 sources) Progestin Start: 2017 medroxyPROGESTERone 2.5 mg oral tablet Dose : 2.5 mg = 1 tab(s), Oral, Daily, # 30 tab(s) Start Date: 06/13/17 Status: Ordered Start: 03-27-2016 End: 03-31-2016 take 2.5 mg by mouth once daily Medroxyprogesterone Ac etate Discontinued 2.5 MG PO DAILY March 27, 2016 12:00am March 31, 2016 1:19pm Start: 07-16-2015 End: 03-17-2016 Start: 07-16-2015 End: 03-17-2016 inject 2.5 mg by intramuscular injection once daily Medroxyprogesterone Discontinued 2.5 MG IM DAILY July 15, 2015 11:00pm March 17, 2016 9:49pm Comment on above: Take 2.5 mg by mouth once daily. melatonin 3 mg oral capsule (2 sources) Start: 2021 take 3 mg by mouth at bedtime Melatonin Active 3 MG PO BEDTIME December 23, 2021 11:00pm methylPREDNISolone (3 sources) Corticosteroid Start: 2022 End: 2022 methylPREDNISolone (MEDROL, JANEE,) 4 mg Dose-Pack Indications: Migraine without status migrainosus, not intractable, unspecified migraine type Follow taper instructions on package. 21 tablet 0 11/21/2022 11/26/2022 Active Comment on above: Follow taper instruc tions on package. modafinil 200 mg oral tablet (20 sources) Sympathomimetic-like Agent Start: 2019 End: 2024 take 1 tablet by mouth once daily modafinil (PROVIGIL) 200 mg tablet Indications: Chronic fatigue Take 1 tablet by mouth once daily for 180 days. 30 tablet 5 08/10/2024 02/06/2025 Active Start: 04-01-2017 End: 06-05-2017 take 200 mg by mouth once daily Modafinil Discontinued 200 MG PO DAILY 30 April 01, 2017 12:00am June 05, 2017 11:26am Start: 03-27-2016 End: 03-31-2016 Start: 03-27-2016 End: 03-31-2016 take 200 mg by mouth twice daily Modafinil Discontinued 200 MG PO TWICE A DAY March 27, 2016 12:00am March 31, 2016 1:19pm Comment on above: TAKE 1 TABLET DAILY Take 1 tablet by kemi th once daily for 180 days. Take 200 mg by mouth once daily. Take 1 tablet by kemi th once daily for 30 days. mupirocin 0.02 mg/mg topical ointment (20 sources) RNA Synthetase Inhibitor Antibacterial Start: 02-26-2024 mupirocin (BACTROBAN) 2 % ointment Indications: MRSA (methicillin resistant Staphylococcus aureus) carrier Apply to nostrils twice daily x 5 days once per month. 22 g 2 02/26/2024 Active Start: 01-23-2023 mupirocin (LOC TROBAN) 2 % ointment Indications: Folliculitis Apply to wound twice daily until healed. 22 g 1 01/23/2023 Active Comment on above: Apply to wound twice daily until healed. nicotine 21 mg/24 hr transdermal film, extended release (1 source) Start: 8 nicotine 21 mg/24 hr transdermal film, extended release Apply 1 patch(es), Transdermal, qDay, # 21 patch(es) Start Date: 06/13/17 Status: Ordered ondansetron 4 mg oral tablet (20 sources) Serotonin-3 Receptor Antagonist Start: take 1 tablet by mouth every eight hours as needed ondansetron (ZOFRAN) 4 mg tablet Take 1 tablet by mouth every 8 hours as needed for nausea/vomiting. 12 tablet 11/15/2021 6:56 PM EDT 11/15/2021 Active Start: 04-07-2021 End: 04-15-2021 take 4 mg by mouth every six hours Ondansetron Discontinued 4 MG PO EVERY 6 HOURS April 07, 2021 12:00am April 15, 2021 1:01pm Start: 03-05-2021 End: 04-04-2021 take 8 mg by mouth every eight hours as needed Ondansetron Discontinued 8 MG PO EVERY 8 HOURS NEEDED March 05, 2021 12:00am April 04, 2021 10:52am Start: 12-25-2020 End: 02-28-2021 take 8 mg by mouth every twelve hours Ondansetron Discontinued 8 MG PO Q12H December 24, 2020 11:00pm February 28, 2021 11:03am Start: 11-12-2020 End: 12-25-2020 take 8 mg by mouth every eight hours as needed Ondansetron Discontinued 8 MG PO EVERY 8 HOURS NEEDED November 11, 2020 11:00pm December 25, 2020 2:15pm Start: 08-04-2020 End: 01-26-2023 take 1 tablet by mouth every eight hours as needed ondansetron orally disintegrating (ZOFRAN ODT) 4 mg disintegrating tablet Take 4 mg by mouth every 8 hours as needed for nausea/vomiting. 12/25/2020 01/26/2023 Discontinued (Discontinued by Patient) Start: 07-29-2020 End: 10-02-2020 take 8 mg by mouth every eight hours as needed Ondansetron Hcl Discontinued 8 MG PO EVERY 8 HOURS NEEDED August 10, 2020 8:25am October 02, 2020 8:50am Start: 03-27-2016 End: 05-12-2016 take 4 mg by mouth three times daily Ondansetron Hcl Discontinued 4 MG PO THREE TIMES A DAY March 27, 2016 12:00am May 12, 2016 1:34pm Comment on above: Take 8 mg by mouth a s needed. Take 4 mg by mouth e very 8 hours as needed for nausea/vomiting. Take 1 tablet by kemi th every 8 hours as needed for nausea/vomiting. oxyCODONE hydrochloride 5 mg oral tablet (20 sources) Opioid Agonist Start: 03-30-2024 End: 04-06-2024 take 1 tablet by mouth every six hours as needed for pain oxyCODONE IR (ROXICODONE) 5 mg immediate release tablet Indications: Spinal stenosis, multiple sites in spine Take 1 tablet by mouth every 6 hours as needed for pain for up to 7 days. 28 tablet 03/30/2024 04/06/2024 Active Start: 03-21-2024 End: 03-28-2024 take 1 tablet by mouth every six hours as needed for pain oxyCODONE IR (ROXICODONE) 5 mg immediate release tablet Indications: Spinal stenosis, multiple sites in spine Take 1 tablet by mouth every 6 hours as needed for pain for up to 7 days. 28 tablet 03/21/2024 03/28/2024 Active Start: 03-04-2024 End: 03-18-2024 take 1 tablet by mouth every six hours as needed for pain oxyCODONE IR (ROXICODONE) 5 mg immediate release tablet Indications: Spinal stenosis, multiple sites in spine Take 1 tablet by mouth every 6 hours as needed for pain for up to 7 days. 28 tablet 03/11/2024 03/18/2024 Active Start: 02-22-2024 End: 02-29-2024 take 1 tablet by mouth every four hours as needed for pain oxyCODONE IR (ROXICODONE) 5 mg immediate release tablet Indications: Spinal stenosis, multiple sites in spine 1 tablet by ORAL/FEEDING TUBE route every 4 hours as needed for pain for up to 7 days. 28 tablet 02/22/2024 02/29/2024 Active Start: 02-11-2024 End: 02-18-2024 take 1 tablet by mouth every four hours as needed for pain oxyCODONE IR (ROXICODONE) 5 mg immediate release tablet Indications: Spinal stenosis, multiple sites in spine 1 tablet by ORAL/FEEDING TUBE route every 4 hours as needed for pain for up to 7 days. 28 tablet 02/11/2024 02/18/2024 Start: 01-28-2024 End: 02-04-2024 take 1 tablet by mouth every four hours as needed for pain oxyCODONE IR (ROXICODONE) 5 mg immediate release tablet Indications: Spinal stenosis, multiple sites in spine 1 tablet by ORAL/FEEDING TUBE route every 4 hours as needed for pain for up to 7 days. 28 tablet 01/28/2024 02/04/2024 Active Start: 01-22-2024 End: 01-29-2024 take 1 tablet by mouth every six hours as needed oxyCODONE IR (ROXICODONE) 5 mg immediate release tablet Indications: Spinal stenosis, multiple sites in spine 1 tablet by ORAL/FEEDING TUBE route every 6 hours as needed for up to 7 days. 7 tablet 01/22/2024 01/28/2024 Discontinued Start: 06-13-2017 oxyCODONE 5 mg oral tablet ( IMMEDIATE release ) Dose : 5 mg = 1 tab(s), Oral, q4h, 0 Refill(s) Start Date: 06/13/17 Status: Ordered pantoprazole 40 mg delayed release oral tablet (20 sources) Proton Pump Inhibitor Start: 11-05-2021 End: 11-20-2021 take 40 mg by mouth once daily Pantoprazole Discontinued 40 MG PO DAILY November 04, 2021 11:00pm November 20, 2021 1:00pm Start: 12-27-2019 End: 08-06-2021 take 1 tablet by mouth three times daily pantoprazole DR (PROTONIX) 40 mg tablet Take 40 mg by mouth three times daily. 0 12/28/2020 Active Start: 12-27-2019 End: 04-01-2022 take 1 tablet by mouth once daily pantoprazole DR (PROTONIX) 40 mg tablet Take 40 mg by mouth once daily. 12/28/2020 Active Comment on above: Take 40 mg by mouth three times daily. Take 40 mg by mouth once daily. phenylephrine hydrochloride 25 mg/ml ophthalmic solution (5 sources) alpha-1 Adrenergic Agonist Start: 10-10-2024 End: 10-11-2024 PHENYLephrine 2.5 % 1 drop (AK-DILATE, ALESSIA-SYNEPHRINE) Start: 10-10-2024 End: 10-11-2024 1 drop, BOTH EYES, DIRECT ED, Starting on Thu10/10/24 at 1530, Until Thu10/11/24 at 0329, Administer for dilation PROTECT FROM LIGHT Start: 05-04-2024 End: 05-04-2024 PHENYLephrine 2.5 % 1 Drop ( AK-DILATE, ALESSIA-SYNEPHRINE) Start: 11-03-2023 End: 11-04-2023 PHENYLephrine 2.5 % 1 Drop ( AK-DILATE, ALESSIA-SYNEPHRINE) potassium chloride 20 meq powder for oral solution (20 sources) Start: 08-06-2023 take 20 mEq by mouth once daily as needed for edema potassium chloride (KLOR-CON) 20 mEq packet Take 20 mEq by mouth once daily. PRN LE edema 08/06/2023 Active Start: 12-24-2021 take 20 mEq by mouth once rena y Potassium Chloride Active 20 MEQ PO DAILY December 23, 2021 11:00pm Start: 09-18-2020 End: 11-08-2021 take 20 mEq by mouth once daily Potassium Chloride Dis continued 20 MEQ PO DAILY July 16, 2021 2:40pm November 08, 2021 10:47am Start: 10-06-2017 End: 08-17-2020 take 20 mEq by mouth once daily Potassium Chloride Dis continued 20 MEQ PO DAILY October 05, 2017 11:00pm August 17, 2020 12:58pm Start: 10-21-2016 End: 06-03-2017 take 20 mEq by mouth twice daily Potassium Chloride Discontinued 20 MEQ PO TWICE A DAY October 20, 2016 11:00pm June 03, 2017 9:40am Start: 03-27-2016 End: 03-31-2016 take 20 mEq by mouth once daily Potassium Chloride Dis continued 20 MEQ PO DAILY March 27, 2016 12:00am March 31, 2016 1:16pm Start: 08-06-2013 End: 10-01-2013 Potassium Chloride (Klor-Con 10) 10 MEQ Tablet.Er Discontinued 60 MEQ PO DAILY August 05, 2013 11:00pm October 01, 2013 12:22pm take 1 tablet by kemi th three times daily potassium chloride 20 mEq TbER potassium chloride ER 20 mEq tablet,extended release Take 1 tablet 3 times a day by oral route. 0 Active Comment on above: potassium chloride E R 20 mEq tablet,extended release Take 1 tablet 3 times a day by oral route. Take 20 mEq by mouth once daily. PRN LE edema proparacaine hydrochloride 5 mg/ml ophthalmic solution (2 sources) Local Anesthetic Start: 10-10-2024 End: 10-11-2024 proparacaine 0.5 % 1 drop (ALCAINE) Start: 10-10-2024 End: 10-11-2024 1 drop, BOTH EYES, DIRECT ED, Starting on Thu10/10/24 at 1530, Until Thu10/11/24 at 0329, Administer for pneumo tonometry, tonopen tonometry, or pachymetry. In the event of a proparacaine shortage, administer tetracaine 0.5% ophthalmic drops 1 drop in the left eye as directed for pneumo tonometry, tonopen tonometry, or pachymetry QUEtiapine 25 mg oral tablet (20 sources) Atypical Antipsychotic Start: 10-15-2023 take 1 tablet by mouth once daily at bedtime QUEtiapine (SEROQUEL) 25 mg tablet Take 25 mg by mouth daily at bedtime. 10/15/2023 Active Start: 07-17-2022 take 1 tablet by kemi once daily at bedtime QUEtiapine (SEROQUEL) 100 mg tablet Take 100 mg by mouth daily at bedtime. 07/17/2022 Active Start: 07-17-2022 take 2 tablets by mo [facility] once daily at bedtime QUEtiapine (SEROQUEL) 50 mg tablet Take 100 mg by mouth daily at bedtime. 0 07/17/2022 Active Start: 07-17-2022 take 1 tablet by kemi th at bedtime QUEtiapine (SEROQUEL) 50 mg tablet TAKE 1 TABLET BY MOUTH AT BEDTIME for mood 0 07/17/2022 Active Comment on above: TAKE 1 TABLET BY KEMI TH AT BEDTIME for mood Take 100 mg by mouth daily at bedtime. ramelteon 8 mg oral tablet (20 sources) Melatonin Receptor Agonist Start: 02-11-2023 take 1 tablet by mouth every twenty-four hours as needed ramelteon (ROZEREM) 8 mg tablet Take 8 mg by mouth at bedtime as needed. 02/11/2023 Active Comment on above: Take 8 mg by mouth a t bedtime as needed. rOPINIRole 2 mg oral tablet (20 sources) Nonergot Dopamine Agonist Start: 08-08-2021 Start: 08-08-2021 End: 02-27-2022 take 2 mg by mouth at bedtime Ropinirole Active 2 MG P O AT BEDTIME February 27, 2022 9:28am administer 1-3 hours before bedtime Start: 12-25-2019 End: 08-08-2021 take 1 mg by mouth twice daily at lunch Ropinirole Discontinued 1 MG PO TWICE A DAY 180 August 01, 2021 7:10am August 08, 2021 9:17am 1 mg PO Lunch and Bedtime; Start: 06-22-2017 End: 08-21-2019 take 2 tablets by mouth at bedtime Ropinirole (Requip) 0.5 mg tablet Discontinued 2 MG PO AT BEDTIME June 22, 2017 12:00am August 21, 2019 11:47am o.5 MG, 2 Tabs PO .1hr prior to HS Start: 06-13-2017 End: 08-08-2021 take 1 mg by mouth once daily at lunch Ropinirole Active 1 MG PO DAILY August 08, 2021 9:14am 1 mg PO Lunch take 2 tablets by mo uth once daily at bedtime rOPINIRole (REQUIP) 1 mg tablet Take 2 mg by mouth daily at bedtime. Active Comment on above: Take 1 mg by mouth d aily at bedtime. Take 2 tabs in afternoon and 2 tabs at bedtime Take 1 mg by mouth d aily with lunch. Take 2 mg by mouth d aily at bedtime. sucralfate 1000 mg oral tablet (20 sources) Aluminum Complex Start: 2 End: 2 take 1 mL by mouth before mealtime Sucralfate Discontinued 10 ML PO before meals 1000 March 19, 2022 12:39pm April 01, 2022 11:24am Start: 05-20-2019 End: 11-20-2021 take 1 tablet by mouth four times daily sucralfate (CARAFATE) 1 gram tablet Take 1 tablet by mouth four times daily. 05/20/2019 Active Comment on above: Take 1 tablet by kemi th four times daily. sulfamethoxazole 800 mg / trimethoprim 160 mg oral tablet (13 sources) Dihydrofolate Reductase Inhibitor Antibacterial, Sulfonamide Antimicrobial Start: 08-30-19 End: 09-09-19 take 1 tablet by mouth twice daily sulfamethoxazole-tr imethoprim (BACTRIM DS) 800-160 mg per tablet Indications: Folliculitis Take 1 tablet by mouth two times a day for 10 days. 20 tablet 08/29/2024 09/08/2024 Active Start: 02-22-2024 End: 02-29-2024 take 1 tablet by mouth every twelve hours sulfamethoxazole-trimethoprim (BACTRIM D S) 800-160 mg per tablet Take 1 tablet by mouth every 12 hours for 14 doses. 14 tablet 02/22/2024 02/29/2024 Active Start: 08-03-2018 End: 08-21-2019 Start: 08-03-2018 End: 08-21-2019 take 1 tablet by mouth twice daily Sulfamethoxazole-Trimethoprim Discontinu ed 1 TABLET PO TWICE A DAY August 02, 2018 11:00pm August 21, 2019 11:47am suvorexant 20 mg oral tablet (1 source) Orexin Receptor Antagonist Start: 06-13-2017 suvorexant 20 mg oral tablet Dose : 20 mg = 1 tab(s), Oral, qHS, PRN sleep, # 30 tab(s), 0 Refill(s) Start Date: 06/13/17 Status: Ordered tirzepatide (MOUNJARO) 15 mg/0.5 mL pen injector (3 sources) Start: 11-03-2024 inject 15 mg by subcutaneous injection every week tirzepatide (MOUNJARO) 15 mg/0.5 mL pen injector Indications: Controlled type 2 diabetes mellitus without complication, 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 6 mL 3 11/03/2024 Active tirzepatide (MOUNJARO) 7.5 mg/0.5 mL pen injector (20 sources) Start: 02-24-2024 inject 7.5 mg by subcutaneous injection every week tirzepatide (MOUNJARO) 7.5 mg/0.5 mL pen injector Inject 7.5 mg subcutaneously one time a week. 4 Each 5 02/24/2024 Active tiZANidine 2 mg oral tablet (20 sources) Central alpha-2 Adrenergic Agonist Start: 09-23-2024 take 1 tablet by mouth once daily at bedtime as needed for pain tiZANidine (ZANAFLEX) 2 mg tablet 2 mg po qam and 2-4 mg qhs prn for pain control Patient should start on September 23, 2024. 270 tablet 1 09/23/2024 Active Start: 09-23-2024 take 1 tablet by kemi th once daily at bedtime as needed for pain tiZANidine (ZANAFLEX) 2 mg tablet 2 mg po qam and 2-4 mg qhs prn for pain control Patient should start on September 23, 2024. 270 tablet 1 09/23/2024 Active Start: 09-23-2024 take 1 tablet by kemi th once daily at bedtime as needed for pain tiZANidine (ZANAFLEX) 2 mg tablet 2 mg po qam and 2-4 mg qhs prn for pain control Patient should start on September 23, 2024. 270 tablet 1 09/23/2024 Active Start: 09-23-2024 take 1 tablet by kemi th once daily at bedtime as needed for pain tiZANidine (ZANAFLEX) 2 mg tablet 2 mg po qam and 2-4 mg qhs prn for pain control Patient should start on September 23, 2024. 270 tablet 1 09/23/2024 Active Start: 09-23-2024 take 1 tablet by kemi th once daily at bedtime as needed for pain tiZANidine (ZANAFLEX) 2 mg tablet 2 mg po qam and 2-4 mg qhs prn for pain control Patient should start on September 23, 2024. 270 tablet 1 09/23/2024 Active Start: 09-23-2024 take 1 tablet by kemi th once daily at bedtime as needed for pain tiZANidine (ZANAFLEX) 2 mg tablet 2 mg po qam and 2-4 mg qhs prn for pain control Patient should start on September 23, 2024. 270 tablet 1 09/23/2024 Active Start: 09-23-2024 take 1 tablet by kemi th once daily at bedtime as needed for pain tiZANidine (ZANAFLEX) 2 mg tablet 2 mg po qam and 2-4 mg qhs prn for pain control Patient should start on September 23, 2024. 270 tablet 1 09/23/2024 Active Start: 09-23-2024 take 1 tablet by kemi th once daily at bedtime as needed for pain tiZANidine (ZANAFLEX) 2 mg tablet 2 mg po qam and 2-4 mg qhs prn for pain control Patient should start on September 23, 2024. 270 tablet 1 09/23/2024 Active Start: 09-23-2024 take 1 tablet by kemi th once daily at bedtime as needed for pain tiZANidine (ZANAFLEX) 2 mg tablet 2 mg po qam and 2-4 mg qhs prn for pain control Patient should start on September 23, 2024. 270 tablet 1 09/23/2024 Active Start: 09-23-2024 take 1 tablet by kemi th once daily at bedtime as needed for pain tiZANidine (ZANAFLEX) 2 mg tablet 2 mg po qam and 2-4 mg qhs prn for pain control Patient should start on September 23, 2024. 270 tablet 1 09/23/2024 Active Start: 09-23-2024 take 1 tablet by kemi th once daily at bedtime as needed for pain tiZANidine (ZANAFLEX) 2 mg tablet 2 mg po qam and 2-4 mg qhs prn for pain control Patient should start on September 23, 2024. 270 tablet 1 09/23/2024 Active Start: 09-23-2024 take 1 tablet by kemi th once daily at bedtime as needed for pain tiZANidine (ZANAFLEX) 2 mg tablet 2 mg po qam and 2-4 mg qhs prn for pain control Patient should start on September 23, 2024. 270 tablet 1 09/23/2024 Active Start: 09-23-2024 take 1 tablet by kemi th once daily at bedtime as needed for pain tiZANidine (ZANAFLEX) 2 mg tablet 2 mg po qam and 2-4 mg qhs prn for pain control Patient should start on September 23, 2024. 270 tablet 1 09/23/2024 Active Start: 09-23-2024 take 1 tablet by kemi th once daily at bedtime as needed for pain tiZANidine (ZANAFLEX) 2 mg tablet 2 mg po qam and 2-4 mg qhs prn for pain control Patient should start on September 23, 2024. 270 tablet 1 09/23/2024 Active Start: 12-29-2023 End: 08-05-2024 take 1 tablet by mouth once daily at bedtime as needed for pain tiZANidine (ZANAFLEX) 2 mg tablet 2 mg po qam and 2-4 mg qhs prn for pain control 270 tablet 1 03/29/2024 08/05/2024 Discontinued Start: 09-15-2023 End: 12-29-2023 take 1 tablet by mouth every twelve hours as needed tiZANidine (ZANAFLEX) 2 mg tablet Take 1 tablet by mouth two times a day as needed (for spasticity). 60 tablet 2 11/25/2023 12/29/2023 Discontinued Start: 01-09-2023 End: 01-15-2023 take 1 tablet by mouth once daily as needed for muscle spasms tiZANidine (ZANAFLEX) 2 mg tablet TAKE 1 TABLET BY MOUTH ONCE DAILY NEEDED for muscle spasms 0 01/09/2023 01/15/2023 Discontinued Start: 12-25-2020 End: 11-05-2021 Start: 06-13-2017 tiZANidine 4 m g oral capsule Dose : 4 mg = 1 cap(s), Oral, TID, # 90 cap(s) Start Date: 06/13/17 Status: Ordered Start: 03-27-2016 End: 03-31-2016 take 4 mg by mouth three times daily Tizanidine Discontinued 4 MG PO THREE TIMES A DAY March 27, 2016 12:00am March 31, 2016 1:19pm Comment on above: Take 2 mg by mouth a s needed. TAKE 1 TABLET BY KEMI TH ONCE DAILY NEEDED for muscle spasms tropicamide 10 mg/ml ophthalmic solution (5 sources) Anticholinergic Start: 10-10-2024 End: 10-11-2024 tropicamide 1 % 1 drop (MYDRIACYL) Start: 10-10-2024 End: 10-11-2024 1 drop, BOTH EYES, DIRECT ED, Starting on Thu10/10/24 at 1530, Until Thu10/11/24 at 0329, Administer for dilation Start: 05-04-2024 End: 05-04-2024 tropicamide 1 % 1 Drop (MYDR IACYL) Start: 11-03-2023 End: 11-04-2023 tropicamide 1 % 1 Drop (MYDR IACYL) Vibegron (7 sources) Start: 07-03-2021 take 1 tablet by kemi th once daily Vibegron (Gemtesa) 75 mg tablet Active 75 MG PO DAILY July 03, 2021 11:30am Start: 07-03-2021 Start: 07-03-2021 take 75 mg by mouth once daily Vibegron Active 75 MG PO DAILY July 03, 2021 12:00am Start: 07-03-2021 take 75 mg by mouth once daily Vibegron Active 75 MG PO DAILY July 03, 2021 1:00am Start: 07-03-2021 take 1 tablet by mouth once da maximino Vibegron (Gemtesa) 75 mg tablet Active 75 MG PO DAILY July 03, 2021 1:00am vibegron (GEMTESA) 75 mg tablet (20 sources) take 1 tablet by kemi th once daily vibegron (GEMTESA) 75 mg tablet Take 75 mg by mouth once daily. Suspended take 1 tablet by mouth once rena y vibegron (GEMTESA) 75 mg tablet Take 75 mg by mouth once daily. Active take 1 tablet by mouth once rena y vibegron (GEMTESA) 75 mg tablet Take 75 mg by mouth once daily. 0 Active Comment on above: Take 75 mg by mouth once daily. (6 sources) Start: 08-10-2020 Start: 08-10-2020 End: 02-01-2021 Start: 10-08-2014 End: 01-26-2015 Completed/Discontinued Medications Medication Drug Class(es) Dates Sig (Normalized) Sig (Original) acidophilus-pectin , citrus 7.5 mg (30 mill cell)-100 mg cap (20 sources) Start: 10-23-2020 End: 01-14-2023 take 1 capsule by mouth once daily acidophilus-pectin, citrus 7.5 mg (30 mill cell)-100 mg cap Take 7.5 mg by mouth once daily. 10/23/2020 01/14/2023 Discontinued Start: 10-23-2020 End: 01-14-2023 take 1 capsule by mouth once daily acidophilus-pectin, citrus 7.5 mg (30 mill cell)-100 mg cap Take 7.5 mg by mouth once daily. 0 10/23/2020 01/14/2023 Discontinued Start: 10-23-2020 take 1 capsule by [facility] once daily acidophilus-pectin, citrus 7.5 mg (30 mill cell)-100 mg cap Take 7.5 mg by mouth once daily. 0 10/23/2020 Active Comment on above: Take 7.5 mg by mouth once daily. albuterol 0.833 mg/ml / ipratropium bromide 0.167 mg/ml inhalation solution (3 sources) Anticholinergic, beta2-Adrenergic Agonist ipratropium-albutero l (DUONEB) 0.5 mg-3 mg(2.5 mg base)/3 mL nebu 3 mL as needed. 0 Active Comment on above: 3 mL as needed. alosetron 0.5 mg oral tablet (20 sources) Serotonin-3 Receptor Antagonist Start: 06-26-19 End: 08-06-19 24 Alosetron HCl 0.5 mg tablet 06/25/2022 08/06/2023 Discontinued ALPRAZolam 0.25 mg oral tablet (20 sources) Benzodiazepine Start: 03-31-20 16 End: 05-12-19 17 take 0.25 mg by mouth twice daily as needed Alprazolam Discontinued 0.25 MG PO TWICE DAILY NEEDED April 11, 2016 11:49am May 12, 2016 1:31pm Start: 03-27-2016 End: 03-31-2016 take 0.5 mg by mouth twice daily Alprazolam Discontinued 0.5 MG PO TWICE A DAY March 27, 2016 12:00am March 31, 2016 1:16pm Start: 06-04-2014 End: 01-26-2015 Alprazolam Discontinued 0.5 MG PO NEEDED June 04, 2014 12:00am January 26, 2015 3:47pm amLODIPine 2.5 mg oral tablet (7 sources) Dihydropyridine Calcium Channel Marielle Start: 04-22-2021 End: 11-05-2021 take 1 tablet by mouth once daily Amlodipine (Norvasc) 2.5 mg tablet Discontinued 2.5 MG PO DAILY April 22, 2021 12:00am November 05, 2021 9:25am amoxicillin 875 mg / clavulanate 125 mg oral tablet (7 sources) Penicillin-class Antibacterial Start: 08-13-2023 End: 08-28-2023 take 1 tablet by mouth every twelve hours amoxicillin-clavul anate potassium (AUGMENTIN) 875-125 mg per tablet Take 1 tablet by mouth every 12 hours. 0 08/13/2023 08/28/2023 Discontinued (Course of therapy completed) benzonatate 100 mg oral capsule (20 sources) Non-narcotic Antitussive Start: 08-13-2023 End: 12-08-2023 take 1 tablet by mouth three times daily as needed for cough benzonatate (TESSALON PERLE) 100 mg capsule take 1 tab by mouth three times a day as needed for cough] 08/13/2023 12/08/2023 Discontinued (Other) bisacodyl 10 mg rectal suppository (7 sources) Stimulant Laxative Start: 08-28-2020 End: 09-18-2020 Start: 08-28-2020 End: 09-18-2020 Bisacodyl (Dulcolax (Bisacod yl)) 10 mg suppository Discontinued 10 MG RC DAILY August 27, 2020 11:00pm September 18, 2020 7:20am Blood-Glucose Meter (Accu-Ch ek Ada Plus Meter) misc (5 sources) Start: 08-10-2020 End: 02-01-2021 Blood-Glucose Meter (Accu-Ch ek Ada Plus Meter) misc Discontinued 0 .ROUTE .MEDSUPPLY August 10, 2020 9:25am February 01, 2021 12:12pm As directed, check daily type 2 DM Start: 08-10-2020 End: 02-01-2021 Blood-Glucose Meter (Accu-Ch ek Ada Plus Meter) misc Discontinued 0 .ROUTE .MEDSUPPLY August 09, 2020 11:00pm February 01, 2021 11:12am As directed, check daily type 2 DM Start: 08-10-2020 End: 02-01-2021 Blood-Glucose Meter (Accu-Ch ek Ada Plus Meter) misc Discontinued 0 .ROUTE .MEDSUPPLY August 10, 2020 12:00am February 01, 2021 12:12pm As directed, check daily type 2 DM Blood-Glucose Meter,Continuo us (FREESTYLE JANAY 3 READER) misc (20 sources) Start: 08-19-2023 End: 01-05-2024 Blood-Glucose Meter,Continuo us (FREESTYLE JANAY 3 READER) misc Dispense one reader. E11.9 1 Each 08/19/2023 01/05/2024 Discontinued (Other) Start: 08-19-2023 Blood-Glucose Meter,Continuous (FREESTYLE JANAY 3 READER) misc Dispense one reader. E11.9 1 Each 08/19/2023 Active Start: 08-19-2023 Blood-Glucose Meter,Continuous (FREESTYLE JANAY 3 READER) misc Dispense one reader. E11.9 1 Each 0 08/19/2023 Active Blood-Glucose Sensor (FREEST YLE JANAY 3 SENSOR) aubrey (20 sources) Start: 08-19-2023 End: 01-05-2024 Blood-Glucose Sensor (FREEST YLE JANAY 3 SENSOR) aubrey Change sensor every 14 days. USE FOR CONTINUOUS GLUCOSE MONITORING. Multiple insulin injections. E11.9 6 Each 3 08/19/2023 01/05/2024 Discontinued (Other) Start: 08-19-2023 Blood-Glucose Sensor (FREESTYLE JANAY 3 SENSOR) aubrey Change sensor every 14 days. USE FOR CONTINUOUS GLUCOSE MONITORING. Multiple insulin injections. E11.9 6 Each 3 08/19/2023 Active Start: 03-04-2023 End: 08-19-2023 Blood-Glucose Sensor (FREEST YLE JANAY 3 SENSOR) aubrey Change sensor every 14 days. USE FOR CONTINUOUS GLUCOSE MONITORING. Multiple insulin injections. E11.9 7 Each 3 03/04/2023 08/19/2023 Discontinued Start: 03-04-2023 End: 03-04-2023 Blood-Glucose Sensor (FREEST YLE JANAY 3 SENSOR) aubrey Change sensor every 14 days. USE FOR CONTINUOUS GLUCOSE MONITORING. Multiple insulin injections. E11.9 7 Each 3 03/04/2023 03/04/2023 Discontinued Start: 03-04-2023 Blood-Glucose Sensor (FREESTYLE JANAY 3 SENSOR) aubrey Change sensor every 14 days. USE FOR CONTINUOUS GLUCOSE MONITORING. Multiple insulin injections. E11.9 7 Each 3 03/04/2023 Active Comment on above: Change sensor every 14 days. USE FOR CONTINUOUS GLUCOSE MONITORING. Multiple insulin injections. E11.9 bumetanide 1 mg oral tablet (20 sources) Loop Diuretic Start: 6 End: 6 take 1 mg by mouth once daily Bumetanide Discontinued 1 MG PO DAILY March 27, 2016 12:00am March 31, 2016 1:16pm Start: 07-16-2015 End: 03-17-2016 take 1 mg by mouth once daily Bumetanide Discontinued 1 MG PO DAILY July 15, 2015 11:00pm March 17, 2016 9:49pm Start: 06-29-2014 End: 08-14-2014 take 1 mg by mouth once daily Bumetanide Discontinued 1 MG PO DAILY June 29, 2014 12:00am August 14, 2014 4:19pm Start: 08-06-2013 End: 10-01-2013 take 2 mg by mouth once daily Bumetanide Discontinued 2 MG PO DAILY August 05, 2013 11:00pm October 01, 2013 12:22pm calcium carbonate 1500 mg oral tablet (20 sources) Start: 12-25-2020 End: 08-06-2023 take 1 tablet by mouth once daily calcium carbonate (CALTRATE) 600 mg calcium (1,500 mg) tab Take 600 mg by mouth once daily. 12/25/2020 08/06/2023 Discontinued Start: 12-25-2020 calcium carbon ate (CALTRATE) 600 mg calcium (1,500 mg) tab calcium carbonate 1500 mg oral tablet (7 sources) Start: 12-25-2020 0 12/25/2020 Active Start: 12-25-2020 End: 11-05-2021 take 600 mg by mouth twice daily Calcium Carbonate Discontinued 600 MG PO TWICE A DAY 180 June 18, 2021 1:18pm November 05, 2021 9:38am Comment on above: calcium carbonate 15 00 mg oral tablet (7 sources) Start: 12-25-2020 Take 600 mg by mouth once daily. cefixime 400 mg oral capsule (7 sources) Cephalosporin Antibacterial Start: 1 End: 1 take 400 mg by mouth once daily Cefixime Discontinued 400 MG PO DAILY 14 August 06, 2020 11:00pm August 17, 2020 12:57pm states has 5 doses left cephalexin 500 mg oral capsule (20 sources) Cephalosporin Antibacterial Start: 2 End: 2 take 500 mg by mouth twice daily Cephalexin Discontinued 500 MG PO TWICE A DAY 14 February 06, 2022 11:00pm April 01, 2022 10:37am Start: 11-15-2021 End: 07-30-2022 take 1 capsule by mouth four times daily cephALEXin (KEFLEX) 500 mg capsule Take 1 capsule by mouth four times daily. 20 capsule 0 11/15/2021 07/30/2022 Discontinued Start: 01-06-2021 End: 02-01-2021 take 500 mg by mouth every six hours Cephalexin Discontinued 500 MG PO EVERY 6 HOURS January 05, 2021 11:00pm February 01, 2021 11:12am Start: 10-23-2020 take 1 capsule by [facility] once daily cephALEXin (KEFLEX) 250 mg capsule Take 1 capsule by mouth once daily. 0 10/23/2020 Active Start: 08-04-2020 End: 08-07-2020 take 500 mg by mouth every eight hours Cephalexin Discontinued 500 MG PO Q8H August 03, 2020 11:00pm August 07, 2020 12:29pm Comment on above: Take 1 capsule by mo ut once daily. Take 1 capsule by mo [facility] four times daily. clopidogrel 75 mg oral tablet (20 sources) [id number] Platelet Inhibitor Start: 10-21-2016 End: 11-07-2020 take 75 mg by mouth once daily Clopidogrel Discontinued 75 MG PO DAILY May 14, 2020 2:39pm November 07, 2020 3:56pm CPAP/BIPAP/OTHER (17 sources) Start: 03-06-2023 End: 08-06-2023 CPAP/BIPAP/OTHER Discontinue bilevel PAP 1 Each 0 03/06/2023 08/06/2023 Discontinued Start: 03-06-2023 End: 07-21-2050 CPAP/BIPAP/OTHER Discontinue bilevel PAP 1 Each 0 03/06/2023 07/21/2050 Active Comment on above: Discontinue bilevel PAP cranberry preparation 500 mg oral capsule (20 sources) Non-Standardized Food Allergenic Extract, Non-Standardized Plant Allergenic Extract End: take 1 capsule by mouth once daily in the morning Cranberry 500 mg cap Take by mouth every morning. STOPPING FOR SURGERY 01/06/24 SURGERY 01/20/24 08/05/2024 Discontinued (Course of therapy completed) take 1 capsule by mo uth once daily in the morning Cranberry 500 mg cap Take by mouth every morning. STOPPING FOR SURGERY 01/06/24 SURGERY 01/20/24 Suspended take 1 capsule by mo uth once daily in the morning Cranberry 500 mg cap Take by mouth every morning. STOPPING FOR SURGERY 01/06/24 SURGERY 01/20/24 Active cyclobenzaprine hydrochloride 5 mg oral tablet (20 sources) Muscle Relaxant Start: 05-15-2023 End: 09-15-2023 take 1 tablet by mouth every twelve hours as needed cyclobenzaprine (FLEXERIL) 5 mg tablet Take 1 tablet by mouth two times a day as needed for muscle spasm. 40 tablet 2 07/10/2023 09/15/2023 Discontinued Start: 01-15-2023 End: 02-27-2023 take 1 tablet by mouth every twelve hours as needed cyclobenzaprine (FLEXERIL) 5 mg tablet Take 1 tablet by mouth two times a day as needed for muscle spasm. 40 tablet 1 02/27/2023 Active Comment on above: Take 1 tablet by kemi th twice daily as needed for muscle spasm. Take 1 tablet by kemi th two times a day as needed for muscle spasm. dabigatran etexilate 75 mg oral capsule (7 sources) Start: 08-07-19 14 End: 10-02-19 14 take 1 capsule by mouth twice daily Dabigatran Etexilate (Pradaxa) 75 MG capsule Discontinued 75 MG PO BID@0600,1800 August 05, 2013 11:00pm October 01, 2013 12:21pm dapagliflozin 10 mg oral tablet (20 sources) Sodium-Glucose Cotransporter 2 Inhibitor Start: 07-21-19 End: 05-26-19 take 1 tablet by mouth once daily in the morning FARXIGA 10 mg tablet Take 1 tablet by mouth every morning. 90 tablet 3 11/05/2022 05/26/2024 Discontinued Start: 04-01-2022 take 1 tablet by kemi th once daily in the morning Dapagliflozin (Farxiga) 10 mg tablet Active 10 MG PO EVERY MORNING April 01, 2022 12:00am Comment on above: Take 10 mg by mouth every morning. Take 1 tablet by kemi th every morning. 1 ml denosumab 60 mg/ml prefilled syringe (20 sources) RANK Ligand Inhibitor Start: 2 End: inject 60 mg by subcutaneous injection once Prolia (denosumab) 60 mg/mL subcutaneous syringe Discontinued 60 MG SC ONCE July 03, 2021 11:19am July 03, 2021 12:56pm Start: 12-25-2020 Start: 12-25-2020 End: 07-03-2021 PROLIA 60 mg/mL Start: 12-25-2020 PROLIA 60 mg/m L once every 6 months. June and January per pt 12/25/2020 Active Comment on above: once every 6 months. diclofenac potassium 50 mg oral tablet (7 sources) Nonsteroidal Anti-inflammatory Drug Start: End: take 50 mg by mouth twice daily Diclofenac Potassium Discontinued 50 MG PO TWICE A DAY November 11, 2020 11:00pm November 05, 2021 9:29am docusate sodium 100 mg oral capsule (7 sources) Start: 021 End: take 100 mg by mouth once daily Docusate Sodium Discontinued 100 MG PO DAILY August 03, 2020 11:00pm August 14, 2020 8:07am doxepin hydrochloride 10 mg oral capsule (3 sources) Tricyclic Antidepressant Start: take 1 capsule by mouth once daily at bedtime doxepin capsule 10 mg Take 1 capsule by mouth daily at bedtime. 0 05/20/2019 Active Comment on above: Take 1 capsule by mo uth daily at bedtime. Estrogens, Conjugated ([facility]) / medroxyPROGESTERone (17 sources) Progestin, Estrogen Start: 021 take 1 tablet by mouth once daily PREMPRO 0.625-2.5 mg per tablet Take 1 tablet by mouth once daily. 0 01/09/2021 Active Start: 01-09-2021 End: 01-11-2021 take 1 tablet by mouth once daily Conj Estrog-Medroxyprogest Brian Discontinued 1 TABLET PO DAILY January 09, 2021 10:41am January 11, 2021 3:20pm Start: 01-09-2021 End: 01-11-2021 take 1 tablet by mouth once daily Conj Estrog-Medroxyprogest Brian Discontinued 1 TABLET PO DAILY January 09, 2021 11:41am January 11, 2021 4:20pm Start: 01-09-2021 End: 01-11-2021 Start: 09-20-2019 End: 01-09-2021 take 1 tablet by mouth once daily Conj Estrog-Medroxyprogest Brian Discontinued 1 TABLET PO DAILY September 20, 2019 12:54pm January 09, 2021 11:41am Start: 09-20-2019 End: 01-09-2021 Start: 09-20-2019 End: 01-09-2021 take 1 tablet by mouth once daily Conj Estrog-Medroxyprogest Brian Discontinued 1 TABLET PO DAILY September 19, 2019 11:00pm January 09, 2021 10:41am Start: 09-20-2019 End: 01-09-2021 take 1 tablet by mouth once daily Conj Estrog-Medroxyprogest Brian Discontinued 1 TABLET PO DAILY September 20, 2019 12:00am January 09, 2021 11:41am Comment on above: Take 1 tablet by [facility] once daily. Exenatide Microspheres (Bydureon) 2 MG Vial (5 sources) Start: 5 End: 5 inject 2 mg by subcutaneous injection every week Exenatide Microspheres (Bydureon) 2 MG Vial Discontinued 2 MG SQ EVERY WEEK October 08, 2014 3:07am January 26, 2015 4:47pm Start: 10-08-2014 End: 01-26-2015 inject 2 mg by subcutaneous injection every week Exenatide Microspheres (Bydureon) 2 MG Vial Discontinued 2 MG SQ EVERY WEEK October 07, 2014 11:00pm January 26, 2015 3:47pm Start: 10-08-2014 End: 01-26-2015 inject 2 mg by subcutaneous injection every week Exenatide Microspheres (Bydureon) 2 MG Vial Discontinued 2 MG SQ EVERY WEEK October 08, 2014 12:00am January 26, 2015 4:47pm flash glucose scanning reade r (FREESTYLE JANAY 3 READER) (20 sources) Start: 05-27-2023 End: 01-05-2024 flash glucose scanning reade r (FREESTYLE JANAY 3 READER) Dispense one reader kit. USE FOR CONTINUOUS GLUCOSE MONITORING. Multiple insulin injections. E11.9 1 Each 05/27/2023 01/05/2024 Discontinued (Other) Start: 05-27-2023 flash glucose scanning reader (FREESTYLE JANAY 3 READER) Dispense one reader kit. USE FOR CONTINUOUS GLUCOSE MONITORING. Multiple insulin injections. E11.9 1 Each 05/27/2023 Active Start: 05-27-2023 flash glucose scanning reader (FREESTYLE JANAY 3 READER) Dispense one reader kit. USE FOR CONTINUOUS GLUCOSE MONITORING. Multiple insulin injections. E11.9 1 Each 0 05/27/2023 Active Start: 03-04-2023 End: 03-04-2023 flash glucose scanning reade r (FREESTYLE JANAY 3 READER) Dispense one reader kit. USE FOR CONTINUOUS GLUCOSE MONITORING. Multiple insulin injections. E11.9 1 Each 0 03/04/2023 03/04/2023 Discontinued Start: 03-04-2023 flash glucose scanning reader (FREESTYLE JANAY 3 READER) Dispense one reader kit. USE FOR CONTINUOUS GLUCOSE MONITORING. Multiple insulin injections. E11.9 1 Each 0 03/04/2023 Active Comment on above: Dispense one reader kit. USE FOR CONTINUOUS GLUCOSE MONITORING. Multiple insulin injections. E11.9 Fluad Quad [id number](65yr up)(PF) 60 mcg (15 mcg x 4)/0.5mL IM syringe (flu vac (3 sources) Start: 01-30-2021 End: 01-30-2021 Fluad Quad [id number](65yr up)(PF) 60 mcg (15 mcg x 4)/0.5mL IM syringe (flu vac Discontinued 60 MCG IM ONCE 0.5 January 30, 2021 10:25am January 30, 2021 11:06am Start: 01-30-2021 End: 01-30-2021 FLUoxetine 10 mg oral capsule (7 sources) Serotonin Reuptake Inhibitor Start: 03-27-2016 End: 03-31-2016 take 30 mg by mouth once daily Fluoxetine Discontinued 30 MG PO DAILY March 27, 2016 12:00am March 31, 2016 1:18pm ibuprofen 600 mg oral tablet (20 sources) Nonsteroidal Anti-inflammatory Drug Start: 07-29-2020 End: 08-17-2020 take 600 mg by mouth four times daily Ibuprofen Discontinued 600 MG PO 4 TIMES DAILY July 29, 2020 11:16am August 17, 2020 9:42am alternate with acetaminophen Start: 06-02-2017 End: 06-05-2017 take 1 tablet by mouth three times daily as needed Ibuprofen (Motrin) 800 MG tablet Discontinued 800 MG PO 3 TIMES DAILY NEEDED June 02, 2017 12:00am June 05, 2017 11:27am Start: 03-27-2016 End: 03-31-2016 take 800 mg by mouth once daily Ibuprofen Discontinued 800 MG PO DAILY March 27, 2016 12:00am March 31, 2016 1:19pm Start: 06-04-2014 End: 08-14-2014 Start: 06-04-2014 End: 08-14-2014 take 1 tablet by mouth once daily Ibuprofen (Motrin) 800 MG tablet Discontinued 800 MG PO DAILY June 04, 2014 12:00am August 14, 2014 4:17pm Comment on above: Take 800 mg by mouth every 6 hours as needed for Pain (prn). 3 ml insulin glargine 100 unt/ml pen injector (7 sources) Insulin Analog Start: 10-07-19 End: 12-19-19 inject 18 [IU] by subcutaneous injection once daily Insulin Glargine Discontinued 18 UNIT SQ DAILY October 05, 2017 11:00pm December 18, 2017 9:53am iv contrast (will be provided with radiology test) (7 sources) Start: 09-15-19 End: 09-16-19 inject 1 dose intravenously once iv contrast (will be provided with radiology test) MRI TSP Inject, intravenously, once for 1 dose. No IV access, insert saline lock prior to the beginning of sedation, infusion, injection of imaging exam. Discontinue saline lock post exam. If Pt. has a central line or IVAD, may access for administration according to line specific nursing protocol. Once exam is complete flush line and de-access according to line specific nursing protocol in the MR contrast administration guidelines link. 1 Each 0 09/15/2023 09/16/2023 Start: 09-15-2023 End: 09-16-2023 inject 1 dose intravenously once iv contrast (will be provided with radiology test) MRI TSP Inject, intravenously, once for 1 dose. No IV access, insert saline lock prior to the beginning of sedation, infusion, injection of imaging exam. Discontinue saline lock post exam. If Pt. has a central line or IVAD, may access for administration according to line specific nursing protocol. Once exam is complete flush line and de-access according to line specific nursing protocol in the MR contrast administration guidelines link. 1 Each 0 09/15/2023 09/16/2023 Active Start: 10-02-2021 End: 10-03-2021 inject 1 dose intravenously once iv contrast (will be provided with radiology test) MRI Brain Inject, intravenously, once for 1 dose.No IV access, insert saline lock prior to beginning of sedation, infusion, injection of imaging exam.Discontinue saline lock post exam. If Pt. has a central line or IVAD, may access for administration according to line specific nursing protocol.Once exam is complete flush line and de-access according to line specific nursing protocol in the MR contrast administration guidelines link 1 Each 0 10/02/2021 10/03/2021 Start: 10-02-2021 End: 10-03-2021 iv contrast (will be provide d with radiology test) MRI CSP Inject, intravenously, once for 1 dose. No IV access, insert saline lock prior to the beginning of sedation, infusion, injection of imaging exam. Discontinue saline lock post exam. If Pt. has a central line or IVAD, may access for administration according to line specific nursing protocol. Once exam is complete flush line and de-access according to line specific nursing protocol in the MR contrast administration guidelines link. 1 Each 0 10/02/2021 10/03/2021 Start: 10-02-2021 End: 10-03-2021 inject 1 dose intravenously once iv contrast (will be provided with radiology test) MRI TSP Inject, intravenously, once for 1 dose. No IV access, insert saline lock prior to the beginning of sedation, infusion, injection of imaging exam. Discontinue saline lock post exam. If Pt. has a central line or IVAD, may access for administration according to line specific nursing protocol. Once exam is complete flush line and de-access according to line specific nursing protocol in the MR contrast administration guidelines link. 1 Each 0 10/02/2021 10/03/2021 Comment on above: MRI Brain Inject, in travenously, once for 1 dose.No IV access, insert saline lock prior to beginning of sedation, infusion, injection of imaging exam.Discontinue saline lock post exam. If Pt. has a central line or IVAD, may access for administration according to line specific nursing protocol.Once exam is complete flush line and de-access according to line specific nursing protocol in the MR contrast administration guidelines link MRI CSP Inject, intr avenously, once for 1 dose. No IV access, insert saline lock prior to the beginning of sedation, infusion, injection of imaging exam. Discontinue saline lock post exam. If Pt. has a central line or IVAD, may access for administration according to line specific nursing protocol. Once exam is complete flush line and de-access according to line specific nursing protocol in the MR contrast administration guidelines link. MRI TSP Inject, intr avenously, once for 1 dose. No IV access, insert saline lock prior to the beginning of sedation, infusion, injection of imaging exam. Discontinue saline lock post exam. If Pt. has a central line or IVAD, may access for administration according to line specific nursing protocol. Once exam is complete flush line and de-access according to line specific nursing protocol in the MR contrast administration guidelines link. levoFLOXacin 750 mg oral tablet (7 sources) Quinolone Antimicrobial Start: 10-11-19 14 End: 10-15-19 14 take 1 tablet by mouth once daily Levofloxacin (Levaquin) 750 MG tablet Discontinued 750 MG PO DAILY 4 October 09, 2013 11:00pm October 14, 2013 9:28am linagliptin 2.5 mg / metFORMIN hydrochloride 1000 mg oral tablet (7 sources) Biguanide, Dipeptidyl Peptidase 4 Inhibitor Start: 03-27-20 16 End: 03-31-20 16 Start: 03-27-2016 End: 03-31-2016 Linagliptin-Metformin (Jenta dueto) 1 EACH tablet Discontinued 1 TABLET PO TWICE DAILY WITH MEALS March 27, 2016 12:00am March 31, 2016 1:19pm magnesium oxide 400 mg oral tablet (3 sources) Start: 11-22-2019 take 1 tablet by mouth once daily magnesium oxide (MAG-OX) 400 mg (241.3 mg magnesium) tablet TAKE 1 TABLET BY MOUTH DAILY 30 tablet 5 11/22/2019 Active Comment on above: TAKE 1 TABLET BY KEMI TH DAILY mesalamine 800 mg delayed release oral tablet (14 sources) Aminosalicylate Start: 10-13-2014 End: 10-13-2014 take 1 capsule by mouth once daily Mesalamine (Apriso) 375 MG Cap.Er.24h Discontinued 1500 MG PO DAILY 120 October 12, 2014 11:00pm October 13, 2014 3:46pm Start: 10-13-2014 End: 10-13-2014 take 1 tablet by mouth three times daily Mesalamine (Asacol Hd) 800 MG Tablet.Dr Discontinued 800 MG PO THREE TIMES A DAY October 12, 2014 11:00pm October 13, 2014 10:13am metFORMIN hydrochloride 500 mg oral tablet (7 sources) Biguanide Start: 03-31-2016 End: 04-11-2016 take 500 mg by mouth three times daily at mealtime Metformin Discontinued 500 MG PO 3 TIMES DAILY WITH MEALS March 31, 2016 12:00am April 11, 2016 11:49am metFORMIN hydrochloride 1000 mg / SITagliptin 50 mg oral tablet (7 sources) Biguanide, Dipeptidyl Peptidase 4 Inhibitor Start: 06-04-2014 End: 01-26-2015 Start: 06-04-2014 End: 01-26-2015 take 1 tablet by mouth twice daily at mealtime Sitagliptin Phos-Metformin (Janumet) 1 TABLET tablet Discontinued 1 TABLET PO TWICE DAILY WITH MEALS June 04, 2014 12:00am January 26, 2015 3:38pm methadone hydrochloride 10 m g oral tablet (8 sources) Opioid Agonist Start: 10-06-2017 End: 10-06-2017 Start: 10-06-2017 End: 10-06-2017 take 10 mg by mouth at bedtime Methadone Discontinued 10 MG PO AT BEDTIME October 05, 2017 11:00pm October 06, 2017 8:28am Start: 06-13-2017 methadone 5 mg oral tablet Dose : 5 mg = 1 tab(s), Oral, qHS, 0 Refill(s) Start Date: 06/13/17 Status: Ordered metoprolol tartrate 50 mg oral tablet (7 sources) beta-Adrenergic Marielle Start: 08-06-2013 End: 10-01-2013 take 50 mg by mouth twice daily Metoprolol Tartrate Discontinued 50 MG PO TWICE A DAY August 05, 2013 11:00pm October 01, 2013 12:22pm 24 hr mirabegron 50 mg extended release oral tablet (17 sources) beta3-Adrenergic Agonist Start: 10-23-2020 take 2 tablets by mouth once daily mirabegron (MYRBETRIQ) 50 mg Tb24 Take 2 tablets by mouth once daily. 0 10/23/2020 Active Start: 09-18-2020 End: 02-20-2021 take 1 tablet by mouth every twenty-four hours Mirabegron (Myrbetriq) 25 mg tablet extended release 24 hr Discontinued 100 MG PO Q24H September 18, 2020 7:18am February 20, 2021 12:29pm takes 2-50 mg tablets Start: 05-11-2020 End: 02-20-2021 take 1 tablet by mouth every twenty-four hours Mirabegron (Myrbetriq) 25 mg tablet extended release 24 hr Discontinued 25 MG PO Q24H 60 May 11, 2020 12:00am September 18, 2020 7:21am Comment on above: Take 2 tablets by mo uth once daily. mirtazapine 15 mg oral table t (7 sources) Start: 10-06-2017 End: 12-18-2017 Start: 10-06-2017 End: 12-18-2017 take 30 mg by mouth at bedtime Mirtazapine Discontinue d 30 MG PO AT BEDTIME October 05, 2017 11:00pm December 18, 2017 9:51am MOUNJARO 5 mg/0.5 mL pen injector (20 sources) Start: 10-07-2023 End: 02-24-2024 inject 5 mg by subcutaneous injection every week MOUNJARO 5 mg/0.5 mL pen injector INJECT 5MG SUBCUTANEOUSLY EVERY WEEK 2 mL 11 10/07/2023 02/24/2024 Discontinued Start: 10-07-2023 inject 5 mg by subcu taneous injection every week MOUNJARO 5 mg/0.5 mL pen injector INJECT 5MG SUBCUTANEOUSLY EVERY WEEK 2 mL 10/07/2023 Suspended Start: 10-07-2023 inject 5 mg by subcu taneous injection every week MOUNJARO 5 mg/0.5 mL pen injector INJECT 5MG SUBCUTANEOUSLY EVERY WEEK 2 mL 10/07/2023 Active nitroglycerin 0.4 mg sublingual tablet (20 sources) Nitrate Vasodilator Start: 08-23-2019 End: 11-20-2021 Nitroglycerin Discontinued 0.4 MG SL every 5 to 15 minutes April 10, 2021 2:06pm August 06, 2021 2:06pm one tablet under the tongue for chest pain not to exceed 3 tablets, 5-15 minutes apart Start: 08-23-2019 End: 04-10-2021 Nitroglycerin Discontinued 0 .4 MG SL ONCE September 18, 2020 7:41am April 10, 2021 2:07pm one tablet under the tongue for chest pain not to exceed 3 tablets, 5-15 minutes apart nitroglycerin (N ITROLINGUAL) 400 mcg/spray spray Dissolve 1 [place] under the tongue every 5 minutes as needed. 0 Active Comment on above: Dissolve 1 [place] und er the tongue every 5 minutes as needed. Dissolve 0.4 mg unde r the tongue every 5 minutes as needed. 0.4 ml ofatumumab 50 mg/ml pen injector (20 sources) [id number] Cytolytic Antibody Start: 07-21-2023 End: 01-05-2024 ofatumumab (KESIMPTA PEN) 20 mg/0.4 mL injection Inject 1 pen (0.4mL) under the skin once monthly 1.2 mL 2 07/21/2023 01/05/2024 Discontinued (Other) Start: 04-01-2022 Ofatumumab (Ke simpta Pen) 20 mg/0.4 mL pen injector Active 20 MG SC EVERY MONTH April 01, 2022 12:00am begin at Week 4 of therapy Start: 10-03-2021 End: 07-17-2023 ofatumumab (KESIMPTA PEN) 20 mg/0.4 mL injection Inject 1 pen (0.4mL) under the skin once monthly 1.2 mL 2 10/08/2022 07/17/2023 Discontinued Start: 03-27-2021 ofatumumab (KE SIMPTA PEN) 20 mg/0.4 mL injection Inject 20mg (1 pen) at weeks 0, 1, 2, 4 and every 4 weeks thereafter 1.2 mL 1 03/27/2021 Active Comment on above: Inject 20mg (1 pen) at weeks 0, 1, 2, 4 and every 4 weeks thereafter Inject 1 pen (0.4mL) under the skin once monthly beginning on week 8. Inject 1 pen (0.4mL) under the skin once monthly OZEMPIC 0.25 mg or 0.5 mg (2 mg/3 mL) pen (18 sources) Start: 08-30-2022 End: 11-05-2022 OZEMPIC 0.25 mg or 0.5 mg (2 mg/3 mL) pen Inject 0.5 mg once weekly 3 mL 4 08/30/2022 11/05/2022 Discontinued Start: 08-30-2022 OZEMPIC 0.25 m g or 0.5 mg (2 mg/3 mL) pen Inject 0.5 mg once weekly 3 mL 4 08/30/2022 Active Start: 08-06-2022 End: 08-30-2022 OZEMPIC 0.25 mg or 0.5 mg (2 mg/3 mL) pen Inject 0.5 mg once weekly 0 08/06/2022 08/30/2022 Discontinued Start: 08-06-2022 OZEMPIC 0.25 m g or 0.5 mg (2 mg/3 mL) pen Inject 0.5 mg once weekly 0 08/06/2022 Active Start: 07-21-2022 End: 08-06-2022 inject 0.25 mg by subcutaneous injection every week, then inject 0.5 mg by subcutaneous injection every week OZEMPIC 0.25 mg or 0.5 mg (2 mg/3 mL) pen Inject 0.25 mg (0.4 mL) subcutaneously every week for 4 weeks, then increase to 0.5 mg weekly 0 07/21/2022 08/06/2022 Discontinued Start: 07-21-2022 inject 0.25 mg by finney bcutaneous injection every week, then inject 0.5 mg by subcutaneous injection every week OZEMPIC 0.25 mg or 0.5 mg (2 mg/3 mL) pen Inject 0.25 mg (0.4 mL) subcutaneously every week for 4 weeks, then increase to 0.5 mg weekly 0 07/21/2022 Active Comment on above: Inject 0.25 mg (0.4 mL) subcutaneously every week for 4 weeks, then increase to 0.5 mg weekly Inject 0.5 mg once w priyanka phenazopyridine hydrochloride 100 mg oral tablet (7 sources) Start: 2020 End: 2020 take 1 tablet by mouth three times daily Phenazopyridine (Pyridium) 100 mg tablet Discontinued 100 MG PO THREE TIMES A DAY 6 0 August 06, 2020 11:00pm August 17, 2020 9:42am will discolor urine pioglitazone 30 mg oral tablet (20 sources) Peroxisome Proliferator Receptor alpha Agonist, Peroxisome Proliferator Receptor gamma Agonist, Thiazolidinedione Start: 2019 End: 2024 take 1 tablet by mouth once daily pioglitazone (ACTOS) 30 mg tablet Take 30 mg by mouth once daily. 01/09/2021 08/05/2024 Discontinued (Course of therapy completed) Comment on above: Take 30 mg by mouth once daily. polyethylene glycol 3350 82855 mg powder for oral solution (7 sources) Osmotic Laxative Start: 2015 End: 2016 Polyethylene Glycol 3350 Discontinued 17 GM PO Q48H 1 March 31, 2016 12:00am May 09, 2016 12:19am polysaccharide iron complex 150 mg oral capsule (7 sources) Start: 2015 End: 2015 Polysaccharide Iron Complex (Ferrex 150) 150 MG capsule Discontinued 150 MG PO DAILY WITH MEALS March 27, 2016 12:00am March 31, 2016 1:21pm predniSONE 10 mg oral tablet (7 sources) Start: 2014 End: 2014 take 4 tablets by mouth once daily, then take 3 tablets by mouth once daily, then take 2 tablets by mouth once daily, then take 1 tablet by mouth once daily, then take 0.5 tablet by mouth once daily Prednisone Discontinued 10 MG PO DIRECTED 221 October 31, 2014 11:00pm January 26, 2015 3:38pm 4 TABLETS A DAY x 3 WEEKS, THEN 3 TABLETS A DAY x 3 WEEKS, THEN 2 TABLETS A DAY x3 WEEKS THEN 1 TABLET A DAY FOR 3 WEEKS, THEN 1/2 TABLET A DAY x3 WEEKS. promethazine hydrochloride 25 mg oral tablet (14 sources) Phenothiazine Start: 2020 End: 2020 take 25 mg by mouth every six hours as needed Promethazine Discontinued 25 MG PO EVERY 6 HOURS NEEDED August 07, 2020 11:00pm September 18, 2020 7:21am Start: 10-19-2017 End: 08-21-2019 take 25 mg by mouth four times daily Promethazine Discontinued 25 MG PO 4 TIMES DAILY October 18, 2017 11:00pm August 21, 2019 11:47am risperiDONE 1 mg oral tablet (14 sources) Atypical Antipsychotic Start: 02-23-2018 End: 08-21-2019 Start: 02-23-2018 End: 08-21-2019 take 1 mg by mouth at bedtime Risperidone Discontinued 1 MG PO AT BEDTIME February 22, 2018 11:00pm August 21, 2019 11:47am Start: 07-16-2015 End: 07-17-2015 take 0.125 mg by mouth three times daily Risperidone (Risperdal) 0.25 MG tablet Discontinued 0.125 MG PO THREE TIMES A DAY July 15, 2015 11:00pm July 17, 2015 2:41pm rosuvastatin calcium 20 mg oral tablet (20 sources) HMG-CoA Reductase Inhibitor Start: 04-16-2020 End: 08-28-2020 take 20 mg by mouth at bedtime Rosuvastatin Discontinued 20 MG PO AT BEDTIME April 16, 2020 1:16pm August 28, 2020 1:59pm Dose decrease- okay to do at next refill Start: 04-16-2020 End: 08-28-2020 Start: 06-13-2017 End: 04-16-2020 take 40 mg by mouth at bedtime Rosuvastatin Discontinu ed 40 MG PO AT BEDTIME January 05, 2018 11:00pm April 16, 2020 1:17pm Start: 10-21-2016 End: 04-01-2017 Start: 10-21-2016 End: 04-01-2017 take 40 mg by mouth at bedtime Rosuvastatin Discontinu ed 40 MG PO AT BEDTIME October 20, 2016 11:00pm April 01, 2017 5:49pm Start: 03-27-2016 End: 04-11-2016 Start: 03-27-2016 End: 04-11-2016 take 1 tablet by mouth at bedtime Rosuvastatin (Crestor) 10 MG tablet Discontinued 10 MG PO AT BEDTIME March 27, 2016 12:00am April 11, 2016 11:49am Comment on above: Take 40 mg by mouth once daily. semaglutide (OZEMPIC) 1 mg/dose (4 mg/3 mL) pen (20 sources) Start: 05-05-19 End: 08-19-19 inject 1 mg by subcutaneous injection every week semaglutide (OZEMPIC) 1 mg/dose (4 mg/3 mL) pen Inject 1 mg subcutaneously one time a week. 9 mL 3 05/05/2023 08/19/2023 Discontinued Start: 05-05-2023 inject 1 mg by subcu taneous injection every week semaglutide (OZEMPIC) 1 mg/dose (4 mg/3 mL) pen Inject 1 mg subcutaneously one time a week. 9 mL 3 05/05/2023 Active Start: 03-17-2023 inject 1 mg by subcu taneous injection every week semaglutide (OZEMPIC) 1 mg/dose (4 mg/3 mL) pen Inject 1 mg subcutaneously one time a week. 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 Inject two 1mg injections subcutaneously once a week. E11.9. 18 mL 3 02/23/2023 Active Comment on above: Inject 2 mg subcutan eously one time a week. Inject two 1mg injections subcutaneously once a week. E11.9. Inject 1 mg subcutan eously one time a week. semaglutide (OZEMPIC) 2 mg/dose (8 mg/3 mL) pen injector (20 sources) Start: 023 End: 023 inject 2 mg by subcutaneous injection every week semaglutide (OZEMPIC) 2 mg/dose (8 mg/3 mL) pen injector Inject 2 mg subcutaneously one time a week. 9 mL 3 11/05/2022 03/17/2023 Discontinued Start: 11-05-2022 inject 2 mg by subcu taneous injection every week semaglutide (OZEMPIC) 2 mg/dose (8 mg/3 mL) pen injector Inject 2 mg subcutaneously one time a week. 9 mL 3 11/05/2022 Active Comment on above: Inject 2 mg subcutan eously one time a week. sennosides, senior care 8.6 mg oral tablet (14 sources) Start: 10-06-2017 End: 12-18-2017 Start: 10-06-2017 End: 12-18-2017 take 1 tablet by mouth twice daily for diarrhea Sennosides Discontinued 1 TABLET PO TWICE A DAY October 23, 2017 9:55pm December 18, 2017 9:51am hold for diarrhea or bowel movements more than 3 times a day SITagliptin 100 mg oral tablet (20 sources) Dipeptidyl Peptidase 4 Inhibitor Start: 07-03-2021 End: 07-30-2022 take 100 mg by mouth once daily Sitagliptin Phosphate Discontinued 100 MG PO DAILY September 05, 2021 10:44am December 24, 2021 1:02pm Comment on above: Take 100 mg by mouth once daily. teriflunomide 14 mg oral tablet (20 sources) Pyrimidine Synthesis Inhibitor Start: 09-20-2019 End: 09-17-2022 take 14 mg by mouth once daily Teriflunomide Discontinued 14 MG PO DAILY September 19, 2019 11:00pm November 05, 2021 9:27am Start: 06-02-2017 End: 08-21-2019 teriflunomide 7 mg oral tabl et Dose : 7 mg = 1 tab(s), Oral, qDay, # 30 tab(s) Start Date: 06/13/17 Status: Ordered Start: 06-02-2017 End: 08-21-2019 take 14 mg by mouth once daily Teriflunomide Discontin ued 14 MG PO DAILY June 02, 2017 12:00am August 21, 2019 11:47am Start: 10-21-2016 End: 01-28-2017 take 1 tablet by mouth once daily Teriflunomide (Aubagio) 7 MG tablet Discontinued 14 MG PO DAILY October 20, 2016 11:00pm January 28, 2017 9:17am Comment on above: TAKE 1 TABLET BY KEMI TH ONCE DAILY. tirzepatide (MOUNJARO) 10 mg/0.5 mL pen injector (20 sources) Start: 04-19-20 End: 09-22-19 inject 10 mg by subcutaneous injection every week tirzepatide (MOUNJARO) 10 mg/0.5 mL pen injector Inject 10 mg subcutaneously one time a week. 6 mL 3 04/19/2024 09/21/2024 Discontinued Start: 04-19-2024 inject 10 mg by subc utaneous injection every week tirzepatide (MOUNJARO) 10 mg/0.5 mL pen injector Inject 10 mg subcutaneously one time a week. 6 mL 3 04/19/2024 Active tirzepatide (MOUNJARO) 12.5 mg/0.5 mL pen injector (11 sources) Start: 09-21-2024 End: 11-03-2024 inject 12.5 mg by subcutaneous injection every week tirzepatide (MOUNJARO) 12.5 mg/0.5 mL pen injector Inject 12.5 mg subcutaneously one time a week. 09/21/2024 11/03/2024 Discontinued Start: 09-21-2024 inject 12.5 mg by finney bcutaneous injection every week tirzepatide (MOUNJARO) 12.5 mg/0.5 mL pen injector Inject 12.5 mg subcutaneously one time a week. 09/21/2024 Active tirzepatide (MOUNJARO) 5 mg/0.5 mL pen injector (20 sources) Start: 03-27-2023 End: 10-07-2023 inject 5 mg by subcutaneous injection every week tirzepatide (MOUNJARO) 5 mg/0.5 mL pen injector Inject 5 mg subcutaneously one time a week. 4 Each 5 03/27/2023 10/07/2023 Discontinued Start: 03-27-2023 inject 5 mg by subcu taneous injection every week tirzepatide (MOUNJARO) 5 mg/0.5 mL pen injector Inject 5 mg subcutaneously one time a week. 4 Each 5 03/27/2023 Active Comment on above: Inject 5 mg subcutan eously one time a week. traMADol hydrochloride 50 mg oral tablet (20 sources) Opioid Agonist Start: 05-08-19 End: 07-04-19 take 50 mg by mouth four times daily as needed Tramadol Discontinued 50 MG PO 4 TIMES DAILY NEEDED 35 May 08, 2021 10:52am July 03, 2021 10:29am Start: 02-05-2021 End: 07-03-2021 take 50 mg by mouth every twelve hours Tramadol Discontinued 50 MG PO Q12H April 04, 2021 3:30pm May 08, 2021 12:06pm Comment on above: Take 50 mg by mouth as needed. TAKE 1 TABLET BY MOUTH EVERY 12 HOURS NEEDED FOR PAIN traZODone hydrochloride 50 m g oral tablet (7 sources) Serotonin Reuptake Inhibitor Start: 06-26-2020 End: 09-18-2020 Start: 06-26-2020 End: 09-18-2020 take 50 mg by mouth at bedtime Trazodone Discontinued 50 MG PO AT BEDTIME June 26, 2020 12:00am September 18, 2020 7:41am triamcinolone acetonide 10 mg/ml injectable suspension (20 sources) Corticosteroid Start: 10-12-2024 End: 10-12-2024 triamcinolone acetonide 5 mg injection (KeNALog 10) Start: 10-12-2024 End: 10-12-2024 5 mg, INTRALESIONAL, ONCE, 1 dose, On Thu10/12/24 at 1400, Intralesional kenalog given by Dr. Soria unless otherwise specified in progress note. Start: 08-29-2024 End: 08-29-2024 triamcinolone acetonide 5 mg injection (KeNALog 10) Start: 08-29-2024 End: 08-29-2024 5 mg, INTRALESIONAL, ONCE, 1 dose, On Thu08/29/24 at 1200, Intralesional kenalog given by Dr. Soria unless otherwise specified in progress note. Start: 10-14-2023 triamcinolone acetonide (KENALOG) 0.1 % cream Indications: Irritant dermatitis Apply thin film on right thigh once or twice daily as needed. No longer than 2 weeks in a row. 30 g 1 10/14/2023 Active Start: 10-14-2023 End: 10-14-2023 triamcinolone acetonide 5 mg injection (KeNALog 10) varenicline 0.5 mg oral tablet (20 sources) Partial Cholinergic Nicotinic Agonist End: 01-30-2025 take 1 tablet by mouth once daily at breakfast varenicline (CHANTIX) 0.5 mg tablet Take 0.5 mg by mouth daily with breakfast. 05/26/2024 Discontinued take 1 tablet by kemi th once daily at bedtime varenicline (CHANTIX) 1 mg tablet Take 1 mg by mouth daily at bedtime. Suspended 24 hr venlafaxine 37.5 mg extended release oral capsule (10 sources) Serotonin and Norepinephrine Reuptake Inhibitor Start: 05-20-2019 End: 05-11-2020 take 37.5 mg by mouth once daily Venlafaxine Discontinued 37.5 MG PO DAILY September 19, 2019 11:00pm May 11, 2020 1:25pm Comment on above: Take 1 capsule by mo [facility] once daily. 24 hr verapamil hydrochloride 180 mg extended release oral capsule (7 sources) Calcium Channel Marielle Start: 03-27-2016 End: 04-11-2016 take 180 mg by mouth once daily Verapamil Hcl (Verapamil Er) 180 MG Cap24h.Pel Discontinued 180 MG PO DAILY March 27, 2016 12:00am April 11, 2016 11:49am vitamin b12 1 mg oral tablet (20 sources) Vitamin B12 Start: 07-30-2022 End: 01-05-2024 take 1 tablet by mouth once daily cyanocobalamin (VITAMIN B-12) 1,000 mcg tab Take 1 tablet by mouth once daily. 07/30/2022 01/05/2024 Discontinued (Other) Comment on above: Take 1 tablet by kemi once daily. Walker (Ultra-Light Rollator) misc (4 sources) Start: 11-06-2021 End: 11-20-2021 Walker (Ultra-Light Rollator) misc Discontinued 0 .Route 1 November 05, 2021 11:00pm November 20, 2021 1:01pm As directed Start: 11-06-2021 End: 11-20-2021 Walker (Ultra-Light Rollator ) misc Discontinued 0 .Route 1 November 06, 2021 12:00am November 20, 2021 2:01pm As directed Start: 11-06-2021 Walker (Ultra- Light Rollator) misc Active 0 .Route 1 November 06, 2021 12:00am As directed warfarin sodium 5 mg oral tablet (7 sources) Vitamin K Antagonist Start: 04-11-2016 End: 05-14-2016 take 2 tablets by mouth once daily Warfarin (Jantoven) 5 MG tablet Discontinued 10 MG PO DAILY@1700 April 11, 2016 12:00am May 14, 2016 12:11am Problems Active Problems Problem Classification Problem Date Documented Da te Episodic/Chronic Abdominal hernia (14 sources) Hiatal hernia; Translations: [Diaphragmatic hernia without obstruction or gangrene] Episodic Acute and unspecified renal failure (7 sources) Acute renal failure syndrome; Translations: [Acute kidney failure, unspecified] Episodic Acute myocardial infarction (7 sources) Myocardial infarction; Translations: [ST elevation (STEMI) myocardial infarction of unspecified site] Chronic Allergic reactions (1 source) Inflammatory dermatosis; Translations: [Irritant contact dermatitis, unspecified cause] 10-14-2023 Episodic Anxiety disorders (20 sources) Anxiety; Translations: [Mixed anxiety and depressive disorder] Onset: 5 06-13-2017 Chronic Biliary tract disease (1 source) Other specified diseases of biliary tract; Translations: [Other specified diseases of biliary tract] Onset: 5 Chronic Blindness and vision defects (8 sources) Disorder of refraction; Translations: [Unspecified disorder of refraction] Onset: 5 11-03-2023 Episodic Calculus of urinary tract (6 sources) History of calculus of kidney; Translations: [Personal history of urinary calculi] Episodic Cardiac dysrhythmias (20 sources) Atrial fibrillation; Translations: [Typical atrial flutter] Onset: 8 Resolved: 2 06-13-2017 Chronic Cardiac dysrhythmias (7 sources) Tachycardia; Translations: [Tachycardia, unspecified] Episodic Cataract (4 sources) Artificial lens present; Translations: [Presence of intraocular lens] Onset: 5 11-03-2023 Chronic Chronic kidney disease (2 sources) Chronic kidney disease stage 3; Translations: [Stage 3 chronic kidney disease] Chronic Chronic obstructive pulmonary disease and bronchiectasis (20 sources) Chronic obstructive lung disease; Translations: [Chronic obstructive pulmonary disease, unspecified] Onset: 4 06-13-2017 Chronic Conditions associated with dizziness or vertigo (7 sources) Benign paroxysmal positional vertigo; Translations: [Benign paroxysmal vertigo, bilateral] Episodic Congestive heart failure; nonhypertensive (20 sources) Congestive heart failure; Translations: [Chronic systolic heart failure] Onset: 4 06-13-2017 Chronic Congestive heart failure; nonhypertensive (1 source) Congestive heart failure; nonhypertensive Onset: 8 Coronary atherosclerosis and other heart disease (20 sources) History of acute ST segment elevation myocardial infarction; Translations: [Old myocardial infarction] Onset: 6 Chronic Coronary atherosclerosis and other heart disease (1 source) Coronary atherosclerosis and other heart disease Onset: 8 Deficiency and other anemia (14 sources) Anemia; Translations: [Anemia, unspecified] Episodic Deficiency and other anemia (3 sources) Anemia, unspecified; Translations: [Anemia, unspecified] Episodic Delirium, dementia, and amnestic and other cognitive disorders (1 source) Alzheimer's disease 06-13-2017 Chronic Diabetes mellitus with complications (15 sources) Hyperglycemia due to type 2 diabetes mellitus; Translations: [Type 2 diabetes mellitus with hyperglycemia] Onset: 2 Chronic Diabetes mellitus with complications (1 source) Diabetes mellitus with complications Onset: 8 Diabetes mellitus without complication (20 sources) Diabetes mellitus; Translations: [Type 2 diabetes mellitus] Onset: 5 06-13-2017 Chronic Diabetes mellitus without complication (1 source) High hemoglobin A1c level; Translations: [Other abnormal glucose] 09-20-2023 Episodic Disorders of lipid metabolism (20 sources) Hyperlipidemia; Translations: [Hyperlipidemia, unspecified] Onset: 8 Chronic Esophageal disorders (20 sources) Gastroesophageal reflux disease; Translations: [Gastro-esophageal reflux disease without esophagitis] Onset: 4 01-05-2024 Chronic Esophageal disorders (7 sources) Albertina-Velasco tear; Translations: [Gastro-esophageal laceration-hemorrhage syndrome] Episodic Essential hypertension (20 sources) Essential hypertension; Translations: [Essential (primary) hypertension] Onset: 5 Chronic Fracture of lower limb (20 sources) Closed pilon fracture; Translations: [Nondisplaced pilon fracture of right tibia, initial encounter for closed fracture] Episodic Fracture of lower limb (7 sources) Closed fracture of distal fibula ; Translations: [Other fracture of upper and lower end of left fibula, initial encounter for closed fracture] Episodic Gastroduodenal ulcer (except hemorrhage) (7 sources) H/O: peptic ulcer; Translations: [Personal history of peptic ulcer disease] Episodic Headache; including migraine (7 sources) Headache; Translations: [Headache] Episodic Immunizations and screening for infectious disease (1 source) Methicillin resistant staphylococcus aureus carrier; Translations: [Carrier or suspected carrier of Methicillin resistant Staphylococcus aureus] 02-26-2024 Episodic Malaise and fatigue (20 sources) Fatigue; Translations: [Chronic fatigue, unspecified] Onset: 2 11-04-2021 Chronic Malaise and fatigue (8 sources) Malaise and fatigue; Translations: [Other malaise] Onset: 3 01-14-2023 Episodic Menopausal disorders (7 sources) Disorder associated with menstruation AND/OR menopause; Translations: [Unspecified menopausal and perimenopausal disorder] Chronic Mood disorders (16 sources) Depressive disorder; Translations: [Major depressive disorder] Onset: 5 06-13-2017 Chronic Mood disorders (1 source) Mood disorders Onset: 8 Multiple sclerosis (20 sources) Multiple sclerosis; Translations: [Multiple sclerosis] Onset: 5 06-13-2017 Chronic Nausea and vomiting (20 sources) Nausea, vomiting and diarrhea; Translations: [Nausea with vomiting, unspecified] Onset: Episodic Noninfectious gastroenteritis (20 sources) Colitis; Translations: [Noninfective gastroenteritis and colitis, unspecified] 10-12-2014 Episodic Nutritional deficiencies (14 sources) Cobalamin deficiency; Translations: [Deficiency of other specified B group vitamins] Episodic Osteoporosis (13 sources) Osteoporosis; Translations: [Age-related osteoporosis without current pathological fracture] Chronic Other acquired deformities (2 sources) Postural kyphosis; Translations: [Postural kyphosis, thoracic region] 01-15-2023 Chronic Other acquired deformities (2 sources) Acquired kyphosis; Translations: [Other kyphosis, thoracic region] 04-03-2023 Chronic Other acquired deformities (20 sources) Kyphosis deformity of spine; Translations: [Unspecified kyphosis, site unspecified] Onset: 4 06-18-2023 Chronic Other acquired deformities (1 source) Deformity of spine; Translations: [Other specified deforming dorsopathies, sacral and sacrococcygeal region] 08-05-2024 Episodic Other aftercare (9 sources) Long-term current use of anticoagulant; Translations: [care home (current) use of anticoagulants] 11-11-2022 Episodic Other aftercare (4 sources) Immunosuppression; Translations: [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)] 09-24-2023 Episodic Other aftercare (2 sources) Long-term current use of drug therapy; Translations: [Other prison (current) drug therapy] 12-14-2023 Episodic Other and ill-defined heart disease (7 sources) Mural thrombus of heart; Translations: [Intracardiac thrombosis, not elsewhere classified] Chronic Other and ill-defined heart disease (7 sources) Takotsubo cardiomyopathy; Translations: [Takotsubo syndrome] Chronic Other and ill-defined heart disease (3 sources) Intracardiac thrombosis, not elsewhere classified; Translations: [Acute myocardial infarction of unspecified site, episode of care unspecified] Chronic Other and ill-defined heart disease (20 sources) Mural thrombus of left ventricle; Translations: [Intracardiac thrombosis, not elsewhere classified] Onset: 10-26-2021 Chronic Other circulatory disease (7 sources) H/O: hypertension; Translations: [Personal history of other diseases of the circulatory system] Episodic Other circulatory disease (7 sources) H/O: heart disorder; Translations: [Personal history of other diseases of the circulatory system] Episodic Other circulatory disease (6 sources) H/O: atrial fibrillation; Translations: [Personal history of other diseases of the circulatory system] Episodic Other congenital anomalies (1 source) Bilateral congenital retroversion of femurs; Translations: [Other specified congenital deformities of hip] 11-11-2022 Chronic Other connective tissue disease (7 sources) Pain in right lower limb; Translations: [Pain in right leg] Episodic Other connective tissue disease (2 sources) History of lumbar fusion; Translations: [Arthrodesis status] 01-15-2023 Episodic Other connective tissue disease (5 sources) Myofascial pain; Translations: [Myalgia, other site] 03-11-2023 Episodic Other connective tissue disease (1 source) Muscle finding; Translations: [Other symptoms and signs involving the musculoskeletal system] 03-11-2023 Episodic Other connective tissue disease (1 source) History of cervical spine fusion; Translations: [Arthrodesis status] 03-16-2023 Episodic Other connective tissue disease (2 sources) Abnormal posture; Translations: [Abnormal posture] 04-03-2023 Episodic Other connective tissue disease (1 source) Increased muscle tone; Translations: [Other specified disorders of muscle] 04-03-2023 Episodic Other connective tissue disease (4 sources) Myofascial pain syndrome of lumbar spine; Translations: [Myalgia, other site] 06-16-2023 Episodic Other connective tissue disease (2 sources) Myofascial pain syndrome of neck; Translations: [Myalgia, other site] 08-11-2023 Episodic Other connective tissue disease (2 sources) Spasticity; Translations: [Cramp and spasm] 12-29-2023 Episodic Other connective tissue disease (1 source) Spasm; Translations: [Other muscle spasm] 10-25-2024 Episodic Other diseases of kidney and ureters (20 sources) Renal impairment; Translations: [Disorder of kidney and ureter, unspecified] 01-05-2024 Episodic Other eye disorders (3 sources) Bilateral optic atrophy of eyes; Translations: [Unspecified optic atrophy] 11-03-2023 Chronic Other eye disorders (3 sources) Bilateral vitreous degeneration of eyes; Translations: [Vitreous degeneration, bilateral] 11-03-2023 Chronic Other eye disorders (1 source) Unspecified optic atrophy; Translations: [Optic nerve atrophy, bilateral] Onset: 5 Chronic Other eye disorders (1 source) Vitreous degeneration, bilateral; Translations: [Vitreous degeneration of both eyes] Onset: 5 Chronic Other eye disorders (1 source) Disorder of lacrimal gland; Translations: [Dry eye syndrome of bilateral lacrimal glands] 10-10-2024 Episodic Other eye disorders (1 source) Dry eye syndrome of bilateral lacrimal glands; Translations: [Dry eye syndrome of bilateral lacrimal glands] Onset: 5 Episodic Other gastrointestinal disorders (1 source) Irritable bowel syndrome 06-13-2017 Chronic Other gastrointestinal disorders (14 sources) Irritable bowel syndrome with diarrhea; Translations: [Irritable bowel syndrome with diarrhea] Chronic Other gastrointestinal disorders (6 sources) Constipation; Translations: [Constipation, unspecified] Episodic Other gastrointestinal disorders (2 sources) Dysphagia, unspecified; Translations: [Dysphagia, unspecified] Onset: 5 Episodic Other hereditary and degenerative nervous system conditions (1 source) Restless legs; Translations: [Restless legs syndrome] 01-19-2023 Chronic Other inflammatory condition of skin (5 sources) Prurigo nodularis; 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] 10-14-2023 Episodic Other inflammatory condition of skin (1 source) Prurigo nodularis; 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] Onset: 5 Episodic Other injuries and conditions due to external causes (1 source) H/O: knee problem; Translations: [Personal history of other (healed) physical injury and trauma] 11-04-2022 Episodic Other injuries and conditions due to external causes (1 source) Excoriation of skin; Translations: [Unspecified multiple injuries, initial encounter] 01-05-2024 Episodic Other nervous system disorders (7 sources) Metabolic encephalopathy; Translations: [Metabolic encephalopathy] Chronic Other nervous system disorders (8 sources) Chronic pain; Translations: [Other chronic pain] 12-10-2022 Chronic Other nervous system disorders (1 source) Chronic pain syndrome; Translations: [Chronic pain syndrome] 04-08-2024 Chronic Other nervous system disorders (1 source) Cervical myelopathy; Translations: [Disease of spinal cord, unspecified] 08-05-2024 Chronic Other nervous system disorders (3 sources) Other chronic pain; Translations: [Other chronic pain] Onset: 5 Chronic Other nervous system disorders (1 source) Disease of spinal cord, unspecified; Translations: [Cervical myelopathy (HCC)] Onset: 5 Chronic Other nervous system disorders (4 sources) Dysarthria; Translations: [Dysarthria and anarthria] 12-03-2022 Episodic Other nervous system disorders (1 source) Impairment of balance; Translations: [Other abnormalities of gait and mobility] 03-29-2024 Episodic Other non-traumatic joint disorders (1 source) Pain in left knee; Translations: [Pain in joint, lower leg] 11-04-2022 Episodic Other nutritional; endocrine; and metabolic disorders (7 sources) Hypomagnesemia; Translations: [Hypomagnesemia] Chronic Other nutritional; endocrine; and metabolic disorders (20 sources) Obese class I; Translations: [Obesity, unspecified] Onset: 2 11-04-2021 Chronic Other nutritional; endocrine; and metabolic disorders (1 source) Body mass index 30+ - obesity; Translations: [Body mass index (BMI) 30.0-30.9, adult] 06-18-2023 Chronic Other nutritional; endocrine; and metabolic disorders (7 sources) H/O: diabetes mellitus; Translations: [Personal history of other endocrine, nutritional and metabolic disease] 12-14-2022 Episodic Other nutritional; endocrine; and metabolic disorders (2 sources) Overweight in adulthood with body mass index of 25 or more but less than 30; Translations: [Body mass index (BMI) 28.0-28.9, adult] 12-14-2022 Episodic Other skin disorders (1 source) Lesion of skin of face; Translations: [Disorder of the skin and subcutaneous tissue, unspecified] 01-14-2023 Episodic Other skin disorders (1 source) Skin lesion; Translations: [Disorder of the skin and subcutaneous tissue, unspecified] 01-14-2023 Episodic Other skin disorders (3 sources) Folliculitis; Translations: [Follicular disorder, unspecified] 01-23-2023 Episodic Other skin disorders (3 sources) Inflamed seborrheic keratosis; Translations: [Inflamed seborrheic keratosis] 10-14-2023 Episodic Other skin disorders (1 source) Inflamed seborrheic keratosis; Translations: [Inflamed seborrheic keratosis] Onset: Episodic Amy-; endo-; and myocarditis; cardiomyopathy (except that caused by tuberculosis or sexually transmitted disease) (20 sources) Cardiomyopathy; Translations: [Cardiomyopathy, unspecified] 10-15-2017 Chronic Regional enteritis and ulcerative colitis (20 sources) Ulcerative colitis; Translations: [Ulcerative colitis, unspecified, without complications] Onset: 5 02-21-2015 Chronic Residual codes; unclassified (9 sources) Obstructive sleep apnea syndrome; Translations: [Obstructive sleep apnea (adult) (pediatric)] 12-17-2022 Chronic Residual codes; unclassified (10 sources) Obstructive sleep apnea (adult) (pediatric); Translations: [Obstructive sleep apnea (adult)(pediatric)] Chronic Residual codes; unclassified (1 source) Sleep apnea; Translations: [Sleep apnea, unspecified] 12-03-2022 Chronic Residual codes; unclassified (1 source) Hypersomnia disorder related to a known organic factor; Translations: [Hypersomnia due to medical condition] 01-19-2023 Chronic Residual codes; unclassified (7 sources) Harmful pattern of use of nicotine; Translations: [Tobacco use] Episodic Residual codes; unclassified (7 sources) Past history of procedure; Translations: [Other specified postprocedural states] Episodic Residual codes; unclassified (2 sources) H/O Spinal surgery; Translations: [Other specified postprocedural states] 12-14-2022 Episodic Residual codes; unclassified (1 source) Insomnia; Translations: [Insomnia, unspecified] 01-19-2023 Episodic Residual codes; unclassified (4 sources) History of lumbar laminectomy; Translations: [Other specified postprocedural states] 01-26-2024 Episodic Residual codes; unclassified (2 sources) Memory impairment; Translations: [Other amnesia] 07-28-2024 Episodic Residual codes; unclassified (2 sources) Postprocedural state finding; Translations: [Other specified postprocedural states] 08-05-2024 Episodic Residual codes; unclassified (1 source) Insomnia, unspecified; Translations: [Insomnia, unspecified] Onset: 5 Episodic Retinal detachments; defects; vascular occlusion; and retinopathy (5 sources) Nonexudative age-related macular degeneration; Translations: [Nonexudative age-related macular degeneration, bilateral, early dry stage] Onset: 5 11-03-2023 Chronic Screening and history of mental health and substance abuse codes (1 source) Personal history of other mental and behavioral disorders; Translations: [Personal history of other mental disorders] 04-12-2024 Episodic Septicemia (except in labor) (4 sources) Sepsis; Translations: [Sepsis, unspecified organism] Episodic Spondylosis; intervertebral disc disorders; other back problems (20 sources) Degeneration of thoracic intervertebral disc; Translations: [Other intervertebral disc degeneration, thoracic region] Onset: 4 Chronic Substance-related disorders (20 sources) Tobacco dependence syndrome; Translations: [Nicotine dependence, unspecified, uncomplicated] Onset: 8 07-01-2017 Chronic Syncope (11 sources) Near syncope; Translations: [Syncope and collapse] Episodic Unclassified (1 source) Unknown / UNK(Unknown) Onset: 7 Unclassified (1 source) Primary generalized (osteo)arthritis / M15.0(ICD-10) Onset: 8 Unclassified (1 source) Nicotine dependence, cigarettes, uncomplicated / F17.210(ICD-10) Onset: 8 Unclassified (1 source) Auditory hallucinations / R44.0(ICD-10) Onset: 8 Unclassified (1 source) Hypertensive heart disease with heart failure / I11.0(ICD-10) Onset: 8 Unclassified (1 source) 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) Onset: 8 Unclassified (1 source) Old myocardial infarction / I25.2(ICD-10) Onset: 8 Unclassified (1 source) Suicidal ideations / R45.851(ICD-10) Onset: 8 Unclassified (3 sources) Other chest pain / R07.89(ICD-10) Onset: 8 Unclassified (1 source) Athscl heart disease of [place] coronary artery w/o ang pctrs / I25.10(ICD-10) Onset: 8 Unclassified (1 source) Multiple sclerosis / G35(ICD-10) Onset: 8 Unclassified (1 source) Presence of coronary angioplasty implant and graft / Z95.5(ICD-10) Onset: 8 Unclassified (1 source) 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/antipl atelets / Z79.02(ICD-10) Onset: 8 Unclassified (1 source) java sql developer (current) use of oral hypoglycemic drugs / Z79.84(ICD-10) Onset: 8 Unclassified (1 source) 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 / Z79.899(ICD-10) Onset: 8 Unclassified (1 source) Personal history of self-harm / Z91.5(ICD-10) Onset: 8 Unclassified (1 source) 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 / Z79.4(ICD-10) Onset: 8 Unclassified (1 source) java sql developer (current) use of opiate analgesic / Z79.891(ICD-10) Onset: 8 Unclassified (1 source) Low back pain, unspecified back pain laterality, unspecified chronicity, unspecified whether sciatica present; Translations: [Low back pain, unspecified back pain laterality, unspecified chronicity, unspecified whether sciatica present] Onset: 5 Unclassified (1 source) New Patient Onset: 4 Urinary tract infections (20 sources) Acute pyelonephritis; Translations: [Acute pyelonephritis] Episodic Past or Other Problems Problem Classification Problem Date Documented Da te Episodic/Chronic Abdominal pain (20 sources) Generalized abdominal pain; Translations: [Generalized abdominal pain] Onset: 10-28-2021 Resolved: 10-31-2021 10-31-2021 Episodic Complications of surgical procedures or medical care (20 sources) Postoperative wound infection; Translations: [Infection following a procedure, other surgical site, initial encounter] Onset: 02-18-2024 02-18-2024 Episodic Fluid and electrolyte disorders (18 sources) Hyponatremia; Translations: [Hypo-osmolality and hyponatremia] Onset: 07-22-2024 Episodic Gastrointestinal hemorrhage (20 sources) Hematemesis; Translations: [Hematemesis] Onset: 10-22-2021 Resolved: 10-31-2021 10-12-2014 Episodic Genitourinary symptoms and ill-defined conditions (11 sources) Dysuria; Translations: [Dysuria] Onset: 07-29-2024 Episodic Hypertension with complications and secondary hypertension (20 sources) Hypertensive emergency; Translations: [Hypertensive emergency] Onset: 10-28-2021 Resolved: 10-31-2021 10-31-2021 Chronic Nonspecific chest pain (20 sources) Other chest pain; Translations: [Chest pain] Onset: 01-19-2018 Resolved: 10-31-2021 Episodic Other acquired deformities (1 source) Other specified deforming dorsopathies, sacral and sacrococcygeal region; Translations: [Oth deforming dorsopathies, sacral and sacrococcygeal region] Onset: 08-05-2024 Episodic Other aftercare (1 source) 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; Translations: [Type 2 diabetes mellitus with other circulatory complication, with long-term current use of insulin (HCC)] Onset: 10-26-2021 Episodic Other aftercare (2 sources) Other prison (current) drug therapy; Translations: [Encounter for long-term (current) use of medications] Onset: 08-17-2024 Episodic Other connective tissue disease (20 sources) Myofascial pain syndrome; Translations: [Myalgia, other site] Onset: 08-11-2023 08-11-2023 Episodic Other connective tissue disease (1 source) Myalgia, other site; Translations: [Myofascial pain dysfunction syndrome] Onset: 08-17-2024 Episodic Other diseases of kidney and ureters (1 source) Disorder of kidney and ureter, unspecified; Translations: [Renal insufficiency] Onset: 01-05-2024 Episodic Other gastrointestinal disorders (20 sources) Diarrhea; Translations: [Diarrhea, unspecified] Onset: 02-28-2015 Resolved: 02-28-2015 02-28-2015 Episodic Other gastrointestinal disorders (1 source) Diarrhea, unspecified; Translations: [Diarrhea, unspecified] Onset: 07-29-2024 Episodic Other injuries and conditions due to external causes (1 source) Unspecified multiple injuries, initial encounter; Translations: [Multiple excoriations] Onset: 01-05-2024 Episodic Pancreatic disorders (not diabetes) (9 sources) Pancreatitis; Translations: [Acute pancreatitis without necrosis or infection, unspecified] Onset: 07-29-2024 Episodic Residual codes; unclassified (3 sources) Other specified postprocedural states; Translations: [Other postprocedural status] Onset: 02-11-2024 08-05-2024 Episodic Residual codes; unclassified (1 source) Other amnesia; Translations: [Memory impairment] Onset: 07-29-2024 Episodic Spondylosis; intervertebral disc disorders; other back problems (20 sources) Chronic neck pain; Translations: [Cervicalgia] Onset: 11-27-2023 Episodic Substance-related disorders (2 sources) Continuous opioid dependence; Translations: [Opioid use, unspecified, uncomplicated] Onset: 08-17-2024 04-08-2024 Episodic Unclassified (1 source) FOLLOW U[ Onset: 12-30-2016 Unclassified (1 source) LOW BP Onset: 06-02-2018 Results Test Name Value Interpretation Reference Range Facility [facility] 11-15-2024 CNPN Normal [facility] CNOVon 10-25-[address] [facility] XR LUMBAR 4V AP/LAT/ FLEX/EX Ton 10-25-2024 XR LUMBAR 4V AP/LAT/ FLEX/EXT Normal [facility] CNOVon 10-12-2024 CNOV Normal [facility] CRYOTHERAPY SKIN LESIONon Complexity: simple Destruction method: cryotherapy Destruction method comment: X1 Informed consent: discussed and consent obtained Informed consent comment: Risk of hypopigmentation and recurrence of lesion(s) discussed. Timeout: patient name, date of , surgical site, and procedure verified Lesion destroyed using liquid nitrogen: Yes Region frozen until ice ball extended beyond lesion: Yes Outcome: patient tolerated procedure well with no complications Post-procedure details: wound care instructions given [facility] OCT MACULA CIRRUS OU (BOTH E YES)on 10-10-2024 [facility] Radiology Study observation (narrative) [facility] OCT OPTIC NERVE CIRRUS OU (B OTH EYES)on 10-10-2024 [facility] Radiology Study observation (narrative) [facility] CNNURSEon 09-21-2024 CNNURSE Normal [facility] CNOVon 09-21-2024 CNOV Normal [facility] CNPNon 09-08-2024 CNPN Normal [facility] NURSING PROGon 09-01-2024 NURSING PROG Normal [facility] OPERATIVE NOon 09-01-2024 OPERATIVE NO Normal [facility] CNOVon 08-29-2024 CNOV Normal [facility] CNPNon 08-29-2024 CNPN Normal [facility] CNOVon 08-24-2024 CNOV Normal [facility] CNPNon 08-24-2024 CNPN Normal [facility] HISTORY PHYSICALon HISTORY PHYSICAL Normal [facility] CNPNon 08-22-2024 CNPN Normal [facility] CNOVon 08-17-2024 CNOV Normal [facility] CNPNon 08-17-2024 CNPN Normal [facility] MR Brain WO contraston 08-12 * * *Final Report* * * DATE OF EXAM: Aug 12 2024 10:10AM [facility] 0294 - MRI BRAIN WO IVCON / PROCEDURE REASON: Multiple sclerosis (HCC) * * * * Physician Interpretation * * * * EXAMINATION: MRI BRAIN WO IVCON, MRI CERVICAL SPINE WO IVCON HISTORY: Multiple sclerosis. Routine follow-up TECHNIQUE: Brain MRI with demyelinating disease protocol without gadolinium. Routine cervical spine protocol without gadolinium. MQ: [id number] COMPARISON: MR brain 07/27/2023, MR cervical spine 08/22/2022 RESULT: MR BRAIN: Parenchymal Findings: There are multiple foci of hyperintensity on FLAIR and T2 within the white matter, nonspecific, but compatible with the clinical diagnosis of multiple sclerosis. New T2 Lesions: None Site(s) of New/Larger T2 Lesion(s): Not applicable Interval Improvement: None. New Enhancing Lesions: N/A T2 [place] of Disease: Severe. Parenchymal Volume Loss: Moderate. Other Significant Findings: Remote lacunar infarct in the right cerebellar hemisphere. Minimal mucosal thickening in the right ethmoid air cells. MR CERVICAL: Counting reference: Craniocervical junction. Anatomic Variants: None. Alignment: Grade 1 degenerative retrolisthesis of C3 on C4, C5-C6, C6-C7, grade 1 degenerative anterolisthesis of C7-T1. Craniocervical Junction: Craniocervical junction is normal. Cord Findings: The visualized cord is within normal limits of signal intensity and morphology within limitations of the protocol performed due to artifact from with orthopedic hardware. Cord T2 Plaque [place]: None New T2 Lesions: None Interval Cord Improvement: None New Cord Enhancing Lesions: None Cord Volume Loss: Normal morphology for age Bone marrow signal/fracture: Postsurgical changes status post laminectomy from C4 through C7, with bilateral facet screws from C4 through C6. Type II degenerative change at C6-C7. No evidence of pathologic marrow infiltration. No evidence of prior fracture. Cervical soft tissues: Postsurgical changes in dorsal paraspinal soft tissues. Cervical Canal and foramina: C2-C3: Canal and foramina are patent. C3-C4: There is disc degeneration with disc osteophyte complex, uncovertebral spurring, and facet arthropathy causing mild canal narrowing without significant foraminal stenosis. C4-C5: Canal and foramina are patent. C5-C6: Canal and foramina are patent. C6-C7: There is disc degeneration with disc osteophyte complex, uncovertebral spurring, and facet arthropathy causing severe bilateral foraminal stenosis without significant canal narrowing. C7-T1: There is disc degeneration with disc osteophyte complex, uncovertebral spurring, and facet arthropathy causing mild canal narrowing without significant foraminal stenosis. *Note: The definition of new T2 Lesions includes both new and enlarging plaques on T2-weighted FLAIR images (new lesions greater than or equal to 5mm3 or an increase in diameter of an existing lesion by greater than or equal to 2mm). DIVISION OF RADIOLOGY Provider, [facility] - 08/12/2024 * * *Final Report* * * DATE OF EXAM: Aug 12 2024 10:10AM [facility] 0294 - MRI BRAIN WO IVCON / PROCEDURE REASON: Multiple sclerosis (HCC) * * * * Physician Interpretation * * * * EXAMINATION: MRI BRAIN WO IVCON, MRI CERVICAL SPINE WO IVCON HISTORY: Multiple sclerosis. Routine follow-up TECHNIQUE: Brain MRI with demyelinating disease protocol without gadolinium. Routine cervical spine protocol without gadolinium. MQ: [id number] COMPARISON: MR brain 07/27/2023, MR cervical spine 08/22/2022 RESULT: MR BRAIN: Parenchymal Findings: There are multiple foci of hyperintensity on FLAIR and T2 within the white matter, nonspecific, but compatible with the clinical diagnosis of multiple sclerosis. New T2 Lesions: None Site(s) of New/Larger T2 Lesion(s): Not applicable Interval Improvement: None. New Enhancing Lesions: N/A T2 [place] of Disease: Severe. Parenchymal Volume Loss: Moderate. Other Significant Findings: Remote lacunar infarct in the right cerebellar hemisphere. Minimal mucosal thickening in the right ethmoid air cells. MR CERVICAL: Counting reference: Craniocervical junction. Anatomic Variants: None. Alignment: Grade 1 degenerative retrolisthesis of C3 on C4, C5-C6, C6-C7, grade 1 degenerative anterolisthesis of C7-T1. Craniocervical Junction: Craniocervical junction is normal. Cord Findings: The visualized cord is within normal limits of signal intensity and morphology within limitations of the protocol performed due to artifact from with orthopedic hardware. Cord T2 Plaque [place]: None New T2 Lesions: None Interval Cord Improvement: None New Cord Enhancing Lesions: None Cord Volume Loss: Normal morphology for age Bone marrow signal/fracture: Postsurgical changes status post laminectomy from C4 through C7, with bilateral facet screws from C4 through C6. Type II degenerative change at C6-C7. No evidence of pathologic marrow infiltration. No evidence of prior fracture. Cervical soft tissues: Postsurgical changes in dorsal paraspinal soft tissues. Cervical Canal and foramina: C2-C3: Canal and foramina are patent. C3-C4: There is disc degeneration with disc osteophyte complex, uncovertebral spurring, and facet arthropathy causing mild canal narrowing without significant foraminal stenosis. C4-C5: Canal and foramina are patent. C5-C6: Canal and foramina are patent. C6-C7: There is disc degeneration with disc osteophyte complex, uncovertebral spurring, and facet arthropathy causing severe bilateral foraminal stenosis without significant canal narrowing. C7-T1: There is disc degeneration with disc osteophyte complex, uncovertebral spurring, and facet arthropathy causing mild canal narrowing without significant foraminal stenosis. *Note: The definition of new T2 Lesions includes both new and enlarging plaques on T2-weighted FLAIR images (new lesions greater than or equal to 5mm3 or an increase in diameter of an existing lesion by greater than or equal to 2mm). IMPRESSION IMPRESSION: Multiple intracranial white matter lesions compatible with multiple sclerosis. No new T2 lesions and N/A new enhancing lesions. Moderate parenchymal volume loss. Other Significant Intracranial Findings: None No evidence of demyelinating disease in the cervical and upper thoracic spinal cord. No new T2 intramedullary lesions and N/A new enhancing intramedullary lesions. No significant volume loss of the upper spinal cord for age. Other Significant Cervical Spine Findings: Postsurgical changes with residual cervical spondylosis as described without high-grade canal narrowing or cord compression. Cervical Anatomic Variant: None. Assume 7 cervical vertebrae with counting from the craniocervical junction. 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 Routine follow-up TECHNIQUE: Brain MRI with demyelinating disease protocol without gadolinium. Routine cervical spine protocol without gadolinium. MQ: [id number] COMPARISON: MR brain 07/27/2023, MR cervical spine 08/22/2022 RESULT: MR BRAIN: Parenchymal Findings: There are multiple foci of hyperintensity on FLAIR and T2 within the white matter, nonspecific, but compatible with the clinical diagnosis of multiple sclerosis. New T2 Lesions: None Site(s) of New/Larger T2 Lesion(s): Not applicable Interval Improvement: None. New Enhancing Lesions: N/A T2 [place] of Disease: Severe. Parenchymal Volume Loss: Moderate. Other Significant Findings: Remote lacunar infarct in the right cerebellar hemisphere. Minimal mucosal thickening in the right ethmoid air cells. MR CERVICAL: Counting reference: Craniocervical junction. Anatomic Variants: None. Alignment: Grade 1 degenerative retrolisthesis of C3 on C4, C5-C6, C6-C7, grade 1 degenerative anterolisthesis of C7-T1. Craniocervical Junction: Craniocervical junction is normal. Cord Findings: The visualized cord is within normal limits of signal intensity and morphology within limitations of the protocol performed due to artifact from with orthopedic hardware. Cord T2 Plaque [place]: None New T2 Lesions: None Interval Cord Improvement: None New Cord Enhancing Lesions: None Cord Volume Loss: Normal morphology for age Bone marrow signal/fracture: Postsurgical changes status post laminectomy from C4 through C7, with bilateral facet screws from C4 through C6. Type II degenerative change at C6-C7. No evidence of pathologic marrow infiltration. No evidence of prior fracture. Cervical soft tissues: Postsurgical changes in dorsal paraspinal soft tissues. Cervical Canal and foramina: C2-C3: Canal and foramina are patent. C3-C4: There is disc degeneration with disc osteophyte complex, uncovertebral spurring, and facet arthropathy causing mild canal narrowing without significant foraminal stenosis. C4-C5: Canal and foramina are patent. C5-C6: Canal and foramina are patent. C6-C7: There is disc degeneration with disc osteophyte complex, uncovertebral spurring, and facet arthropathy causing severe bilateral foraminal stenosis without significant canal narrowing. C7-T1: There is disc degeneration with disc osteophyte complex, uncovertebral spurring, and facet arthropathy causing mild canal narrowing without significant foraminal stenosis. *Note: The definition of new T2 Lesions includes both new and enlarging plaques on T2-weighted FLAIR images (new lesions greater than or equal to 5mm3 or an increase in diameter of an existing lesion by greater than or equal to 2mm). DIVISION OF RADIOLOGY Provider, [facility] - 08/12/2024 * * *Final Report* * * DATE OF EXAM: Aug 12 2024 10:10AM [facility] 0297 - MRI CERVICAL SPINE WO IVCON / PROCEDURE REASON: Multiple sclerosis (HCC) * * * * Physician Interpretation * * * * EXAMINATION: MRI BRAIN WO IVCON, MRI CERVICAL SPINE WO IVCON HISTORY: Multiple sclerosis. Routine follow-up TECHNIQUE: Brain MRI with demyelinating disease protocol without gadolinium. Routine cervical spine protocol without gadolinium. MQ: [id number] COMPARISON: MR brain 07/27/2023, MR cervical spine 08/22/2022 RESULT: MR BRAIN: Parenchymal Findings: There are multiple foci of hyperintensity on FLAIR and T2 within the white matter, nonspecific, but compatible with the clinical diagnosis of multiple sclerosis. New T2 Lesions: None Site(s) of New/Larger T2 Lesion(s): Not applicable Interval Improvement: None. New Enhancing Lesions: N/A T2 [place] of Disease: Severe. Parenchymal Volume Loss: Moderate. Other Significant Findings: Remote lacunar infarct in the right cerebellar hemisphere. Minimal mucosal thickening in the right ethmoid air cells. MR CERVICAL: Counting reference: Craniocervical junction. Anatomic Variants: None. Alignment: Grade 1 degenerative retrolisthesis of C3 on C4, C5-C6, C6-C7, grade 1 degenerative anterolisthesis of C7-T1. Craniocervical Junction: Craniocervical junction is normal. Cord Findings: The visualized cord is within normal limits of signal intensity and morphology within limitations of the protocol performed due to artifact from with orthopedic hardware. Cord T2 Plaque [place]: None New T2 Lesions: None Interval Cord Improvement: None New Cord Enhancing Lesions: None Cord Volume Loss: Normal morphology for age Bone marrow signal/fracture: Postsurgical changes status post laminectomy from C4 through C7, with bilateral facet screws from C4 through C6. Type II degenerative change at C6-C7. No evidence of pathologic marrow infiltration. No evidence of prior fracture. Cervical soft tissues: Postsurgical changes in dorsal paraspinal soft tissues. Cervical Canal and foramina: C2-C3: Canal and foramina are patent. C3-C4: There is disc degeneration with disc osteophyte complex, uncovertebral spurring, and facet arthropathy causing mild canal narrowing without significant foraminal stenosis. C4-C5: Canal and foramina are patent. C5-C6: Canal and foramina are patent. C6-C7: There is disc degeneration with disc osteophyte complex, uncovertebral spurring, and facet arthropathy causing severe bilateral foraminal stenosis without significant canal narrowing. C7-T1: There is disc degeneration with disc osteophyte complex, uncovertebral spurring, and facet arthropathy causing mild canal narrowing without significant foraminal stenosis. *Note: The definition of new T2 Lesions includes both new and enlarging plaques on T2-weighted FLAIR images (new lesions greater than or equal to 5mm3 or an increase in diameter of an existing lesion by greater than or equal to 2mm). IMPRESSION IMPRESSION: Multiple intracranial white matter lesions compatible with multiple sclerosis. No new T2 lesions and N/A new enhancing lesions. Moderate parenchymal volume loss. Other Significant Intracranial Findings: None No evidence of demyelinating disease in the cervical and upper thoracic spinal cord. No new T2 intramedullary lesions and N/A new enhancing intramedullary lesions. No significant volume loss of the upper spinal cord for age. Other Significant Cervical Spine Findings: Postsurgical changes with residual cervical spondylosis as described without high-grade canal narrowing or cord compression. Cervical Anatomic Variant: None. Assume 7 cervical vertebrae with counting from the craniocervical junction. 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 No new T2 lesions and N/A new enhancing lesions. Moderate parenchymal volume loss. Other Significant Intracranial Findings: None No evidence of demyelinating disease in the cervical and upper thoracic spinal cord. No new T2 intramedullary lesions and N/A new enhancing intramedullary lesions. No significant volume loss of the upper spinal cord for age. Other Significant Cervical Spine Findings: Postsurgical changes with residual cervical spondylosis as described without high-grade canal narrowing or cord compression. Cervical Anatomic Variant: None. Assume 7 cervical vertebrae with counting from the craniocervical junction. 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 XR LUMBAR 4V AP/LAT/ FLEX/EX Ton 08-04-2024 XR LUMBAR 4V AP/LAT/ FLEX/EXT Normal [facility] CNPNon 08-03-2024 CNPN Normal [facility] CNPNon 08-01-[address] [facility] ALBUMIN/CREATININE RATIO, UR INEon 07-29-2024 Albumin DL <= 20 mg/L (U) [Mass/Vol] mg/dL Normal [facility] Comment on above: Order Comment: Speci men Type: URINE SPECIMENOrdering Facility: [facility] Address: [address] [place] [address] Performed By: #### U ACR ####[facility] LABCLIA [id number] [place] [address] [place] Albumin/Creatinine (U) [Mass ratio] <10 Normal <30 [facility] Comment on above: Order Comment: Speci men Type: URINE SPECIMENOrdering Facility: [facility] Address: [address] [place] [address] Result Comment: Adul t Male and Female Nephrotic Criteria:<30 mg/g is considered normal to mildly kfdpljxar29-045 mg/g is considered moderately increased>300 mg/g is considered severely increasedKDIGO. (2013). KDIGO 2012 Clinical Practice Guideline for the Evaluation and Management of Chronic Kidney Disease. Official Journal of the International Society of Nephrology, 3(1), 1-150. Performed By: #### U ACR ####[facility] LABCLIA [id number] [place] [address] [place] Creatinine (U) [Mass/Vol] 119.0 mg/dL Normal 20.0-300.0 [facility] Comment on above: Order Comment: Speci men Type: URINE SPECIMENOrdering Facility: [facility] Address: [address] [place] [address] Performed By: #### U ACR ####[facility] LABCLIA [id number] [place] [address] [place] Bacteria Ur Culton Bacteria identified Cx Nom (U) Normal [facility] Comment on above: Performed By: #### 6 30-4 ####[facility] LABIA [id number] [place] [address] [place] CBC W Auto Differential pane l (Bld)on 07-29-2024 Basophils (Bld) [#/Vol] 0.07 10*3/uL Normal <0.11 [facility] Comment on above: Order Comment: Speci men Type: BLOOD SPECIMENOrdering Facility: [facility] Address: [address] [place] [address] Performed By: #### 5 7021-8 ####[facility] SYSTEMLIA [id number] [place] [address] [place] Basophils/100 WBC (Bld) 1.1 % Normal [facility] Comment on above: Order Comment: Speci men Type: BLOOD SPECIMENOrdering Facility: [facility] Address: [address] [place] [address] Performed By: #### 5 7021-8 ####[facility] SYSTEMLIA [id number] [place] [address] [place] Differential cell count method Nom (Bld) Auto Normal [facility] Comment on above: Order Comment: Speci men Type: BLOOD SPECIMENOrdering Facility: [facility] Address: [address] [place] [address] Performed By: #### 5 7021-8 ####[facility] [id number] [place] [address] [place] Eosinophils (Bld) [#/Vol] 0.23 10*3/uL Normal <0.46 [facility] Comment on above: Order Comment: Speci men Type: BLOOD SPECIMENOrdering Facility: [facility] Address: [address] [place] [address] Performed By: #### 5 7021-8 ####[facility] [id number] [place] [address] [place] Eosinophils/100 WBC (Bld) 3.6 % Normal [facility] Comment on above: Order Comment: Speci men Type: BLOOD SPECIMENOrdering Facility: [facility] Address: [address] [place] [address] Performed By: #### 5 7021-8 ####[facility] [id number] [place] [address] [place] Erythrocyte distribution width (RBC) [Ratio] 15.1 % High 11.5-15.0 [facility] Comment on above: Order Comment: Speci men Type: BLOOD SPECIMENOrdering Facility: [facility] Address: [address] [place] [address] Performed By: #### 5 7021-8 ####[facility]ITALNCLIA [id number] [place] [address] [place] Hematocrit (Bld) [Volume fraction] 35.2 % Low 36.0-46.0 [facility] Comment on above: Order Comment: Speci men Type: BLOOD SPECIMENOrdering Facility: [facility] Address: [address] [place] [address] Performed By: #### 5 7021-8 ####[facility]ITALNCMOUNT[facility] [id number] [place] [address] [place] Hemoglobin (Bld) [Mass/Vol] 11.1 g/dL Low 11.5-15.5 [facility] Comment on above: Order Comment: Speci men Type: BLOOD SPECIMENOrdering Facility: [facility] Address: [address] [place] [address] Performed By: #### 5 7021-8 ####[facility]ITALNCMOUNT[facility] [id number] [place] [address] [place] Immature granulocytes (Bld) [#/Vol] 10*3/uL Normal <0.10 [facility] Comment on above: Order Comment: Speci men Type: BLOOD SPECIMENOrdering Facility: [facility] Address: [address] [place] [address] Performed By: #### 5 7021-8 ####[facility] HOSPITALNCA [id number] [place] [address] [place] Immature granulocytes/100 WBC (Bld) 0.3 % Normal [facility] Comment on above: Order Comment: Speci men Type: BLOOD SPECIMENOrdering Facility: [facility] Address: [address] [place] [address] Performed By: #### 5 7021-8 ####[facility] HOSPITALNCA [id number] [place] [address] [place] Lymphocytes (Bld) [#/Vol] 1.50 10*3/uL Normal 1.00-4.00 [facility] Comment on above: Order Comment: Speci men Type: BLOOD SPECIMENOrdering Facility: [facility] Address: [address] [place] [address] Performed By: #### 5 7021-8 ####[facility] MALANCLIA [id number] [place] [address] [place] Lymphocytes/100 WBC (Bld) 23.4 % Normal [facility] Comment on above: Order Comment: Speci men Type: BLOOD SPECIMENOrdering Facility: [facility] Address: [address] [place] [address] Performed By: #### 5 7021-8 ####[facility] CRISTYBUTLERNCLUPEA [id number] [place] [address] [place] MCH (RBC) [Entitic mass] 28.9 pg Normal 26.0-34.0 [facility] Comment on above: Order Comment: Speci men Type: BLOOD SPECIMENOrdering Facility: [facility] Address: [address] [place] [address] Performed By: #### 5 7021-8 ####[facility]ITALNCLIA [id number] [place] [address] [place] MCHC (RBC) [Mass/Vol] 31.5 g/dL Normal 30.5-36.0 [facility] Comment on above: Order Comment: Speci men Type: BLOOD SPECIMENOrdering Facility: [facility] Address: [address] [place] [address] Performed By: #### 5 7021-8 ####[facility] CRISTYBUTLERNCLIA [id number] [place] [address] [place] MCV (RBC) [Entitic vol] 91.7 fL Normal 80.0-100.0 [facility] Comment on above: Order Comment: Speci men Type: BLOOD SPECIMENOrdering Facility: [facility] Address: [address] [place] [address] Performed By: #### 5 7021-8 ####[facility]ITALNCLIA [id number] [place] [address] [place] Monocytes (Bld) [#/Vol] 0.55 10*3/uL Normal <0.87 [facility] Comment on above: Order Comment: Speci men Type: BLOOD SPECIMENOrdering Facility: [facility] Address: [address] [place] [address] Performed By: #### 5 7021-8 ####[facility] SYSTEMLIA [id number] [place] [address] [place] Monocytes/100 WBC (Bld) 8.6 % Normal [facility] Comment on above: Order Comment: Speci men Type: BLOOD SPECIMENOrdering Facility: [facility] Address: [address] [place] [address] Performed By: #### 5 7021-8 ####[facility]ITALNCLIA [id number] [place] [address] [place] Neutrophils (Bld) [#/Vol] 4.04 10*3/uL Normal 1.45-7.50 [facility] Comment on above: Order Comment: Speci men Type: BLOOD SPECIMENOrdering Facility: [facility] Address: [address] [place] [address] Performed By: #### 5 7021-8 ####[facility] SYSTEMLIA [id number] [place] [address] [place] Neutrophils/100 WBC (Bld) 63.0 % Normal [facility] Comment on above: Order Comment: Speci men Type: BLOOD SPECIMENOrdering Facility: [facility] Address: [address] [place] [address] Performed By: #### 5 7021-8 ####[facility]ITALNCLIA [id number] [place] [address] [place] Nucleated RBC (Bld) [#/Vol] 10*3/uL Normal <0.01 [facility] Comment on above: Order Comment: Speci men Type: BLOOD SPECIMENOrdering Facility: [facility] Address: [address] [place] [address] Performed By: #### 5 7021-8 ####[facility] NNAMDI MALANCALEXIA [id number] [place] [address] [place] Nucleated RBC/100 WBC (Bld) [Ratio] 0.0 /100 WBC Normal [facility] Comment on above: Order Comment: Speci men Type: BLOOD SPECIMENOrdering Facility: [facility] Address: [address] [place] [address] Performed By: #### 5 7021-8 ####[facility] HOSPITALNCALEXIA [id number] [place] [address] [place] Platelet mean volume (Bld) [Entitic vol] 9.9 fL Normal 9.0-12.7 [facility] Comment on above: Order Comment: Speci men Type: BLOOD SPECIMENOrdering Facility: [facility] Address: [address] [place] [address] Performed By: #### 5 7021-8 ####[facility]ITALNCLIA [id number] [place] [address] [place] Platelets (Bld) [#/Vol] 260 10*3/uL Normal 150-400 [facility] Comment on above: Order Comment: Speci men Type: BLOOD SPECIMENOrdering Facility: [facility] Address: [address] [place] [address] Performed By: #### 5 7021-8 ####[facility]ITALNCLIA [id number] [place] [address] [place] RBC (Bld) [#/Vol] 3.84 10*6/uL Low 3.90-5.20 [facility] Comment on above: Order Comment: Speci men Type: BLOOD SPECIMENOrdering Facility: [facility] Address: [address] [place] [address] Performed By: #### 5 7021-8 ####[facility] MALANCALEXIA [id number] [place] [address] [place] WBC (Bld) [#/Vol] 6.41 10*3/uL Normal 3.70-11.00 [facility] Comment on above: Order Comment: Speci men Type: BLOOD SPECIMENOrdering Facility: [facility] Address: [address] [place] [address] Performed By: #### 5 7021-8 ####[facility] CRISTYBUTLERTARIKLUPEBarbara [id number] [place] [address] [place] CNPNon 07-29-2024 CNPN Normal [facility] metabolic 2000 panelon 07-29-2024 Albumin [Mass/Vol] 3.5 g/dL Low 3.9-4.9 [facility] Comment on above: Order Comment: Speci men Type: BLOOD SPECIMENOrdering Facility: [facility] Address: [address] [place] [address] Performed By: #### 2 4323-8 ####[facility]ITALNCLIA [id number] [place] [address] [place] ALP [Catalytic activity/Vol] 207 U/L High 34-123 [facility] Comment on above: Order Comment: Speci men Type: BLOOD SPECIMENOrdering Facility: [facility] Address: [address] [place] [address] Performed By: #### 2 4323-8 ####[facility]ITALNCLIA [id number] [place] [address] [place] ALT [Catalytic activity/Vol] 26 U/L Normal 7-38 [facility] Comment on above: Order Comment: Speci men Type: BLOOD SPECIMENOrdering Facility: [facility] Address: [address] [place] [address] Performed By: #### 2 4323-8 ####[facility] NNAMDI MILLTOWNCLIA [id number] [place] [address] [place] Anion gap [Moles/Vol] 6 mmol/L Low 8-15 [facility] Comment on above: Order Comment: Speci men Type: BLOOD SPECIMENOrdering Facility: [facility] Address: [address] [place] [address] Performed By: #### 2 4323-8 ####[facility] MILLTOWNCLIA [id number] [place] [address] [place] AST [Catalytic activity/Vol] 9 U/L Low 13-35 [facility] Comment on above: Order Comment: Speci men Type: BLOOD SPECIMENOrdering Facility: [facility] Address: [address] [place] [address] Performed By: #### 2 4323-8 ####[facility] DELANDWNCLIA [id number] [place] [address] [place] Bilirubin [Mass/Vol] 0.2 mg/dL Normal 0.2-1.3 [facility] Comment on above: Order Comment: Speci men Type: BLOOD SPECIMENOrdering Facility: [facility] Address: [address] [place] [address] Performed By: #### 2 4323-8 ####[facility] MILLTOWNCLIA [id number] [place] [address] [place] Calcium [Mass/Vol] 9.4 mg/dL Normal 8.5-10.2 [facility] Comment on above: Order Comment: Speci men Type: BLOOD SPECIMENOrdering Facility: [facility] Address: [address] [place] [address] Performed By: #### 2 4323-8 ####[facility] MILLTOWNCLIA [id number] [place] [address] [place] Chloride [Moles/Vol] 102 mmol/L Normal 98-107 [facility] Comment on above: Order Comment: Speci men Type: BLOOD SPECIMENOrdering Facility: [facility] Address: [address] [place] [address] Performed By: #### 2 4323-8 ####[facility] [id number] [place] [address] [place] CO2 [Moles/Vol] 27 mmol/L Normal 22-30 [facility] Comment on above: Order Comment: Speci men Type: BLOOD SPECIMENOrdering Facility: [facility] Address: [address] [place] [address] Performed By: #### 2 4323-8 ####[facility] [id number] [place] [address] [place] [facility] Creatinine [Mass/Vol] 0.64 mg/dL Normal 0.58-0.96 [facility] Comment on above: Order Comment: Speci men Type: BLOOD SPECIMENOrdering Facility: [facility] Address: [address] [place] [address] Performed By: #### 2 4323-8 ####[facility] [id number] [address] OF [facility] Creatinine and Glomerular filtration rate.predicted panel (S/P/Bld) 96 mL/min/1.73m??? Normal >=60 [facility] Comment on above: Order Comment: Speci men Type: BLOOD SPECIMENOrdering Facility: [facility] Address: [address] [place] [address] Result Comment: Julianne mated Glomerular Filtration Rate (eGFR) is calculated using the 2020 CKD-EPI creatinine equation. This equation utilizes serum creatinine, sex, and age as parameters. The creatinine assay has traceable calibration to isotope dilution-mass spectrometry. Refer to KDIGO guidelines for clinical interpretation. In patients with unstable renal function, e.g. those with acute kidney injury, the eGFR may not accurately reflect actual GFR. Performed By: #### 2 4323-8 ####[facility] CRISTYTOWNCLIA [id number] [place] [address] [place] Glucose [Mass/Vol] 171 mg/dL High 74-99 [facility] Comment on above: Order Comment: Speci men Type: BLOOD SPECIMENOrdering Facility: [facility] Address: [address] [place] [address] Result Comment: The [place] Diabetes Association (ADA) provides guidance for cutoff values for fasting glucose and random glucose. The ADA defines fasting as no caloric intake for at least 8 hours. Fasting plasma glucose results between 100 to 125 mg/dL indicate increased risk for diabetes (prediabetes).Fasting plasma glucose results greater than or equal to 126 mg/dL meet the criteria for diagnosis of diabetes. In the absence of unequivocal hyperglycemia, results should be confirmed by repeat testing. In a patient with classic symptoms of hyperglycemia or hyperglycemic crisis, random plasma glucose results greater than or equal to 200 mg/dL meet the criteria for diagnosis of diabetes.Reference: Standards of Medical Care in Diabetes 2016, [place] Diabetes Association. Diabetes Care. 2016.39(Suppl 1). Performed By: #### 2 4323-8 ####[facility]ITALNCLIA [id number] [place] [address] [place] Potassium [Moles/Vol] 3.8 mmol/L Normal 3.7-5.1 [facility] Comment on above: Order Comment: Speci men Type: BLOOD SPECIMENOrdering Facility: [facility] Address: [address] [place] [address] Performed By: #### 2 4323-8 ####[facility]ITALNCLIA [id number] [place] [address] [place] Protein [Mass/Vol] 6.3 g/dL Normal 6.3-8.0 [facility] Comment on above: Order Comment: Speci men Type: BLOOD SPECIMENOrdering Facility: [facility] Address: [address] [place], [place] [address] Performed By: #### 2 4323-8 ####[facility] [id number] [place] [address] [place] Sodium [Moles/Vol] 135 mmol/L Low 136-144 [facility] Comment on above: Order Comment: Speci men Type: BLOOD SPECIMENOrdering Facility: [facility] Address: [address] [place] [address] Performed By: #### 2 4323-8 ####[facility] [id number] [place] [address] [place] Urea nitrogen [Mass/Vol] 20 mg/dL Normal 7-21 [facility] Comment on above: Order Comment: Speci men Type: BLOOD SPECIMENOrdering Facility: [facility] Address: [address] [place] [address] Performed By: #### 2 4323-8 ####[facility] [id number] [place] [address] [place] HbA1c (Bld)on 07-29-2024 Average glucose Estimated from glycated hemoglobin (Bld) [Mass/Vol] 134 mg/dL Normal [facility] Comment on above: Order Comment: Speci men Type: BLOOD SPECIMENOrdering Facility: [facility] Address: [address] [place] [address] Result Comment: eAG: (Estimated average glucose) is a calculated value from HgbA1c and is airport representative of the average blood glucose level in the last 2-3 month period. Performed By: #### 5 5454-3 ####[facility] LABCLIA [id number] [place] [address] [place] HbA1c (Bld) [Mass fraction] 6.3 % High 4.3-5.6 [facility] Comment on above: Order Comment: Speci men Type: BLOOD SPECIMENOrdering Facility: [facility] Address: [address] [place] [address] Result Comment: [place] Diabetes Association guidelines indicate that patients with HgbA1c in the range 5.7-6.4% are at increased risk for development of diabetes, and intervention by lifestyle modification may be beneficial. HgbA1c greater or equal to 6.5% is considered diagnostic of diabetes. Performed By: #### 5 5454-3 ####[facility] LABCLIA [id number] [address] [place] LIPID PANEL, NONFASTINGon Cholesterol [Mass/Vol] 134 mg/dL Normal <200 [facility] Comment on above: Order Comment: Luis velez Type: BLOOD SPECIMENOrdering Facility: [facility] Address: [address] [place] [address] Result Comment: <200 mg/dL, Desirable 200-239 mg/dL, Borderline high>239 mg/dL, High Performed By: #### L IPNF ####[facility] LABIA [id number] [address] STATES OF [facility] HDL CHOLESTEROL, NF 72 mg/dL Normal >39 [facility] Comment on above: Order Comment: Luis velez Type: BLOOD SPECIMENOrdering Facility: [facility] Address: [address] [place] [address] Result Comment: 40-5 9 mg/dL, Acceptable>59 mg/dL, High: Negative risk factor for coronary heart disease<40 mg/dL, Low: Positive risk factor for coronary heart disease Performed By: #### L IPNF ####[facility] LABIA [id number] [address] [place] LDL CHOLESTEROL, NF 49 mg/dL Normal <100 [facility] Comment on above: Order Comment: Luis velez Type: BLOOD SPECIMENOrdering Facility: [facility] Address: [address] [place] [address] Result Comment: <100 mg/dL, Optimal 100-129 mg/dL, Near optimal/above optimal 130-159 mg/dL, Borderline high 160-189 mg/dL, High>189 mg/dL, Very highSecondary prevention optimal LDL Cholesterol levels are recommended to be < 70 mg/dL Performed By: #### L IPNF ####[facility] LABIA [id number] [address] OF [facility] LDL/HDL RATIO, NF 0.68 mg/dL Normal <2.54 [facility] Comment on above: Order Comment: Speci men Type: BLOOD SPECIMENOrdering Facility: [facility] Address: [address] [place] [address] Result Comment: Refe rence:1. National Cholesterol Education Program ATP III Guideline At-A-Glance Quick Desk Reference: National Heart, Lung, and Blood [place]. National Institutes of Health. 2001: NIH Publication No. 01-3305.2. An International Atherosclerosis Society position paper: global recommendations for the management of dyslipidemia: executive summary, Atherosclerosis. 2014: 232(2):410-413. Performed By: #### L IPNF ####[facility] LABGR[facility] [id number] [address] [place] NON HDL CHOL, NF 62 mg/dL Normal <130 [facility] Comment on above: Order Comment: Marii men Type: BLOOD SPECIMENOrdering Facility: [facility] Address: [address] [place] [address] Result Comment: <130 mg/dL, Optimal 130-159 mg/dL, Near optimal/above optimal 160-189 mg/dL, Borderline high 190-219 mg/dL, High>219 mg/dL, Very highSecondary prevention optimal non HDL Cholesterol levels are recommended to be <100 mg/dL Performed By: #### L IPNF ####[facility] LABIA [id number] [address] OF [facility] T CHOL/HDL RATIO NF 1.86 mg/dL Normal <5.10 [facility] Comment on above: Order Comment: Speci men Type: BLOOD SPECIMENOrdering Facility: [facility] Address: [address] [place] [address] Performed By: #### L IPNF ####[facility] LABCLIA [id number] [facility]ITALK [address] [place] [address] [place] TRIGLYCERIDES, NF 64 mg/dL Normal <150 [facility] Comment on above: Order Comment: Speci men Type: BLOOD SPECIMENOrdering Facility: [facility] Address: [address] [place] [address] Result Comment: <150 mg/dL, Normal 150-199 mg/dL, Borderline high 200-499 mg/dL, High>499 mg/dL, Very high Performed By: #### L IPNF ####[facility] LABCLIA [id number] [address], [place] [address] [place] VLDL CHOLESTEROL, NF 13 mg/dL Normal <30 [facility] Comment on above: Order Comment: Speci men Type: BLOOD SPECIMENOrdering Facility: [facility] Address: [address] [place] [address] Performed By: #### L [id number] ####[facility] LABCLIA [id number] [address], [place] [address] [place] Urinalysis complete panel (U )on 07-29-2024 BACTERIA UL 4010.0 uL High Negative [facility] Comment on above: Order Comment: Speci men Type: URINE SPECIMENOrdering Facility: [facility] Address: [address] [place] [address] Performed By: #### 2 4356-8 ####[facility] LABCLIA [id number] [place] [address] [place] Bilirubin Ql (U) Negative Normal Negative [facility] Comment on above: Order Comment: Speci men Type: URINE SPECIMENOrdering Facility: [facility] Address: [address] [place] [address] Performed By: #### 2 4356-8 ####[facility] LABCLIA [id number] [address], [facility] [place] Clarity (Unsp spec) Cloudy Abnormal Clear [facility] Comment on above: Order Comment: Speci men Type: URINE SPECIMENOrdering Facility: [facility] Address: [address] [place] [address] Performed By: #### 2 4356-8 ####[facility] LABCLIA [id number] [address] [place] [address] [place] Color (U) Dark Yellow Abnormal Yellow [facility] Comment on above: Order Comment: Speci men Type: URINE SPECIMENOrdering Facility: [facility] Address: [address] [place] [address] Performed By: #### 2 4356-8 ####[facility] LABCLIA [id number] [address] [place] [address] [place] Epithelial cells LM.HPF (Urine sed) [#/Area] Moderate Normal [facility] Comment on above: Order Comment: Speci men Type: URINE SPECIMENOrdering Facility: [facility] Address: [address] [place] [address] Performed By: #### 2 4356-8 ####[facility] LABCLIA [id number] [address] [place] [address] [place] Glucose Test strip (U) [Mass/Vol] Negative Normal Negative [facility] Comment on above: Order Comment: Speci men Type: URINE SPECIMENOrdering Facility: [facility] Address: [address] [place] [address] Performed By: #### 2 4356-8 ####[facility] LABCLIA [id number] [address] [place] [address] [place] Hemoglobin Ql (U) Negative Normal Negative [facility] Comment on above: Order Comment: Speci men Type: URINE SPECIMENOrdering Facility: [facility] Address: [address] [place] [address] Performed By: #### 2 4356-8 ####[facility] LABCLIA [id number] [place] [address] [place] Hyaline casts (Urine sed) [#/Area] 0 /[LPF] Normal 0 /LPF [facility] Comment on above: Order Comment: Speci men Type: URINE SPECIMENOrdering Facility: [facility] Address: [address] [place] [address] Performed By: #### 2 4356-8 ####[facility] LABCLIA [id number] [address], [place] [address] [place] Ketones Ql (U) Negative Normal Negative [facility] Comment on above: Order Comment: Speci men Type: URINE SPECIMENOrdering Facility: [facility] Address: [address] [place] [address] Performed By: #### 2 4356-8 ####[facility] LABCLIA [id number] [place] [address] [place] Leukocyte esterase Test strip Ql (U) 1+ Abnormal Negative [facility] Comment on above: Order Comment: Speci men Type: URINE SPECIMENOrdering Facility: [facility] Address: [address] [place] [address] Performed By: #### 2 4356-8 ####[facility] LABCLIA [id number] [address], [place] [address] [place] Nitrite Ql (U) Negative Normal Negative [facility] Comment on above: Order Comment: Speci men Type: URINE SPECIMENOrdering Facility: [facility] Address: [address] [place] [address] Performed By: #### 2 4356-8 ####[facility] LABCLIA [id number] [place] [address] [place] pH (U) 7.5 [pH] Normal <8.5 [facility] Comment on above: Order Comment: Speci men Type: URINE SPECIMENOrdering Facility: [facility] Address: [address] [place] [address] Performed By: #### 2 4356-8 ####[facility] LABIA [id number] [place] [address] [place] Protein (U) [Mass/Vol] 1+ Abnormal Negative [facility] Comment on above: Order Comment: Speci men Type: URINE SPECIMENOrdering Facility: [facility] Address: [address] [place] [address] Performed By: #### 2 4356-8 ####[facility] LABIA [id number] [place] [address] [place] RBC LM.HPF (Urine sed) [#/Area] 3-5 /HPF Abnormal 0-2 /HPF [facility] Comment on above: Order Comment: Speci men Type: URINE SPECIMENOrdering Facility: [facility] Address: [address] [place] [address] Performed By: #### 2 4356-8 ####[facility] [id number] [place] [address] [place] Specific gravity (U) [Rel density] 1.034 High 1.005-1.030 [facility] Comment on above: Order Comment: Speci men Type: URINE SPECIMENOrdering Facility: [facility] Address: [address] [place] [address] Performed By: #### 2 4356-8 ####[facility] [id number] [place] [address] [place] Urobilinogen Ql (U) 1.0 EU/dL Normal 0.2-1.0 EU/dL [facility] Comment on above: Order Comment: Speci men Type: URINE SPECIMENOrdering Facility: [facility] Address: [address] [place] [address] Performed By: #### 2 4356-8 ####[facility] LABIA [id number] [place] [address] [place] WBC LM.HPF (Urine sed) [#/Area] 0-5 /HPF Normal 0-5 /HPF [facility] Comment on above: Order Comment: Speci men Type: URINE SPECIMENOrdering Facility: [facility] Address: [address] [place] [address] Performed By: #### 2 4356-8 ####[facility] [id number] [place] [address] [place] CNPNon 07-27-2024 CNPN Normal [facility] CNPNon 07-19-2024 CNPN Normal [facility] CNPNon 07-06-2024 CNPN Normal [facility] CNPNon 05-26-2024 CNPN Normal [facility] OCT MACULA CIRRUS OU (BOTH E YES)on 05-04-2024 [facility] Radiology Study observation (narrative) [facility] VISUAL FIELD 30-2 OU (BOTH E YES)on 05-04-2024 [facility] Radiology Study observation (narrative) [facility] CNOVon 04-08-2024 CNOV Normal [facility] PAIN PANEL, UR QUANTon 04-08 2-Xifqtjmius-7,5-Dime thyl-3,3-Diphenylpyrr olidine (EDDP) Confirm (U) [Mass/Vol] <6 Normal <6 [facility] Comment on above: Order Comment: Speci men Type: URINE SPECIMENOrdering Facility: [facility] Address: [address] [place] [address] Result Comment: EDDP is a metabolite of methadone. Performed By: #### L [id number] ####[facility] LABIA [id number] [place] [address] [place] 6-Monoacetylmorphine (6-JANENE) (U) [Mass/Vol] <5 Normal <5 [facility] Comment on above: Order Comment: Speci men Type: URINE SPECIMENOrdering Facility: [facility] Address: [address] [place] [address] Result Comment: 6-MA M (6-monoacetylmorphine, also known as 6-acetylmorphine) is a unique metabolite of heroin. Presence of 6-JANENE indicates use of heroin. 6-JANENE is further metabolized to morphine and absence of 6-JANENE does not rule out the use of heroin. Performed By: #### L [id number] ####[facility] [id number] [place] [address] [place] Amphetamine Confirm (U) [Mass/Vol] <5 Normal <5 [facility] Comment on above: Order Comment: Speci men Type: URINE SPECIMENOrdering Facility: [facility] Address: [address] [place] [address] Performed By: #### L [id number] ####[facility] [id number] [place] [address] [place] Benzoylecgonine Confirm (U) [Mass/Vol] <24 Normal <24 [facility] Comment on above: Order Comment: Speci men Type: URINE SPECIMENOrdering Facility: [facility] Address: [address] [place] [address] Result Comment: Jim oylecgonine is a metabolite of cocaine. Performed By: #### L [id number] ####[facility] [id number] [place] [address] [place] Buprenorphine (U) [Mass/Vol] <20 Normal <20 [facility] Comment on above: Order Comment: Speci men Type: URINE SPECIMENOrdering Facility: [facility] Address: [address] [place] [address] Performed By: #### L [id number] ####[facility] [id number] [place] [address] [place] Cannabinoids Confirm (U) [Mass/Vol] <16 Normal <16 [facility] Comment on above: Order Comment: Speci men Type: URINE SPECIMENOrdering Facility: [facility] Address: [address] [place] [address] Result Comment: Tetr ahydrocannabinol carboxylic acid (THCA) is a metabolite of vipxx-7-rqrvfxqijmdewzuudwgg which is the main active component of marijuana. Performed By: #### L [id number] ####[facility] [id number] [address] STATES [facility] Codeine Confirm (U) [Mass/Vol] <11 Normal <11 [facility] Comment on above: Order Comment: Speci men Type: URINE SPECIMENOrdering Facility: [facility] Address: [address] [place] [address] Performed By: #### L [id number] ####[facility] [id number] [address] [place] Dihydrocodeine Confirm (U) [Mass/Vol] <5 Normal <5 [facility] Comment on above: Order Comment: Speci men Type: URINE SPECIMENOrdering Facility: [facility] Address: [address] [place] [address] Performed By: #### L [id number] ####[facility] [id number] [address] [place] fentaNYL Confirm (U) [Mass/Vol] <6 Normal <6 [facility] Comment on above: Order Comment: Speci men Type: URINE SPECIMENOrdering Facility: [facility] Address: [address] [place] [address] Performed By: #### L [id number] ####[facility] [id number] [address] [place] HYDROcodone Confirm (U) [Mass/Vol] <8 Normal <8 [facility] Comment on above: Order Comment: Speci men Type: URINE SPECIMENOrdering Facility: [facility] Address: [address] [place] [address] Result Comment: Hydr ocodone is a metabolite of dihydrocodeine. Performed By: #### L [id number] ####[facility] [id number] [address] STATES [facility] HYDROmorphone Confirm (U) [Mass/Vol] <5 Normal <5 [facility] Comment on above: Order Comment: Speci men Type: URINE SPECIMENOrdering Facility: [facility] Address: [address] [place] [address] Result Comment: Hydr omorphone is a metabolite of hydrocodone. Performed By: #### L [id number] ####[facility] LABCLIA [id number] [place] [address] [place] Methadone Confirm (U) [Mass/Vol] <16 Normal <16 [facility] Comment on above: Order Comment: Speci men Type: URINE SPECIMENOrdering Facility: [facility] Address: [address] [place] [address] Performed By: #### L [id number] ####[facility] LABIA [id number] [place] [address] [place] Methamphetamine Confirm (U) [Mass/Vol] <8 Normal <8 [facility] Comment on above: Order Comment: Speci men Type: URINE SPECIMENOrdering Facility: [facility] Address: [address] [place] [address] Performed By: #### L [id number] ####[facility] LABIA [id number] [place] [address] [place] Morphine Confirm (U) [Mass/Vol] <10 Normal <10 [facility] Comment on above: Order Comment: Speci men Type: URINE SPECIMENOrdering Facility: [facility] Address: [address] [place] [address] Result Comment: Morp yolis is a metabolite of codeine and heroin. Performed By: #### L [id number] ####[facility] LABIA [id number] [place] [address] [place] Norbuprenorphine (U) [Mass/Vol] <20 Normal <20 [facility] Comment on above: Order Comment: Speci men Type: URINE SPECIMENOrdering Facility: [facility] Address: [address] [place] [address] Result Comment: Norb uprenorphine is the primary active metabolite of buprenorphine. Performed By: #### L [id number] ####[facility] LABCLIA [id number] [place] [address] [place] Norfentanyl Confirm (U) [Mass/Vol] <6 Normal <6 [facility] Comment on above: Order Comment: Speci men Type: URINE SPECIMENOrdering Facility: [facility] Address: [address] [place] [address] Result Comment: Norf entanyl is a metabolite of fentanyl. Performed By: #### L [id number] ####[facility] LABCLIA [id number] [place] [address] [place] Nortramadol (U) [Mass/Vol] <20 Normal <20 [facility] Comment on above: Order Comment: Speci men Type: URINE SPECIMENOrdering Facility: [facility] Address: [address] [place] [address] Result Comment: Desm ethyltramadol is a metabolite of tramadol. Performed By: #### L [id number] ####[facility] LABIA [id number] [place] [address] [place] NOTE,UR PAIN CHU Normal [facility] Comment on above: Order Comment: Speci men Type: URINE SPECIMENOrdering Facility: [facility] Address: [address] [place] [address] Result Comment: This test is for medical use only.This test was developed, and its performance characteristics determined by the [facility] Department of Pathology and Laboratory Medicine. It has not been cleared or approved by the FDA. The [facility] Department of Pathology and Laboratory Medicine is regulated under CLIA as qualified to perform high-complexity testing. This test is used for clinical purposes. It should not be regarded as investigational or for research. Performed By: #### L [id number] ####[facility] LABCLIA [id number] [place] [address] [place] oxyCODONE Confirm (U) [Mass/Vol] <10 Normal <10 [facility] Comment on above: Order Comment: Speci men Type: URINE SPECIMENOrdering Facility: [facility] Address: [address] [place] [address] Performed By: #### L [id number] ####[facility] LABCLIA [id number] [place] [address] [place] oxyMORphone Confirm (U) [Mass/Vol] 17 ng/mL High <5 [facility] Comment on above: Order Comment: Speci men Type: URINE SPECIMENOrdering Facility: [facility] Address: [address] [place] [address] Result Comment: Oxym orphone may arise from oxymorphone containing drugs or by metabolism of oxycodone. Performed By: #### L [id number] ####[facility] LABCLIA [id number] [place] [address] [place] traMADol Confirm (U) [Mass/Vol] <25 Normal <25 [facility] Comment on above: Order Comment: Speci men Type: URINE SPECIMENOrdering Facility: [facility] Address: [address] [place] [address] Performed By: #### L [id number] ####[facility] LABIA [id number] [place] [address] [place] SPECIMEN VALIDITY, URINEon 1 06-09-2023 CHROMATE,URINE <10 Normal <50 [facility] Comment on above: Order Comment: Speci men Type: URINE SPECIMENOrdering Facility: [facility] Address: [address] [place] [address] Performed By: #### L [id number] ####[facility] LABIA [id number] [place] [address] [place] CREATININE,URINE 109.3 mg/dL Normal 20.0-300.0 [facility] Comment on above: Order Comment: Speci men Type: URINE SPECIMENOrdering Facility: [facility] Address: [address] [place] [address] Performed By: #### L [id number] ####[facility] LABCLIA [id number] [place] [address] [place] NITRITES,URINE 66 mg/L Normal <500 [facility] Comment on above: Order Comment: Speci men Type: URINE SPECIMENOrdering Facility: [facility] Address: [address] [place] [address] Performed By: #### L [id number] ####[facility] LABCLIA [id number] [place] [address] [place] OXIDANTS,URINE 84 mg/L Normal <200 [facility] Comment on above: Order Comment: Speci men Type: URINE SPECIMENOrdering Facility: [facility] Address: [address] [place] [address] Performed By: #### L [id number] ####[facility] LABCLIA [id number] [place] [address] [place] pH (U) 5.6 [pH] Normal 4.5-8.0 [facility] Comment on above: Order Comment: Speci men Type: URINE SPECIMENOrdering Facility: [facility] Address: [address] [place] [address] Performed By: #### L [id number] ####[facility] LABCLIA [id number] [place] [address] [place] SPEC GRAVITY,UR 1.016 Normal 1.003-1.035 [facility] Comment on above: Order Comment: Speci men Type: URINE SPECIMENOrdering Facility: [facility] Address: [address] [place], [place] [address] Performed By: #### L [id number] ####[facility] LABCLIA [id number] [address] [place] SPECIMEN VALIDITY QUALITY Specimen quality results within acceptable limits Normal [facility] Comment on above: Order Comment: Speci men Type: URINE SPECIMENOrdering Facility: [facility] Address: [address] [place] [address] Performed By: #### L [id number] ####[facility] LABCLIA [id number] [address] [place] TOXICOLOGY SCREEN, ROUTINE U RINEon 04-08-2024 Amphetamines Confirm (U) [Mass/Vol] Negative Negative [facility] Comment on above: Cutoff threshold at 1000 ng/mL. Barbiturates Urine Negative Negative [facility] Comment on above: Cutoff threshold at 200 ng/mL. Benzodiazepines Urine Negative Negative [facility] Comment on above: Cutoff threshold at 200 ng/mL. Cannabinoids Screen Ql (U) Negative Negative [facility] Comment on above: Cutoff threshold at 50 ng/mL. Cocaine Ql (U) Negative Negative [facility] Comment on above: Cutoff threshold at 300 ng/mL. Ethanol (U) [Mass/Vol] mg/dL NINF - 11 mg/dL [facility] Interpretation and review of laboratory results Normal [facility] Opiates Screen Ql (U) Negative Negative [facility] Comment on above: Cutoff threshold at 300 ng/mL. oxyCODONE cutoff Screen (U) [Mass/Vol] Negative Negative [facility] Comment on above: Cutoff threshold at 100 ng/mL. Phencyclidine Ql (U) Negative Negative [facility] Comment on above: Cutoff threshold at 25 ng/mL. Immunoassay screen o nly. Cross reactivity with other substances can occur with immunoassay screening. Detection of any drug(s) in this urine toxicology panel is presumptive only. These tests are for medical purposes only and should not be used for compliance monitoring, legal, or forensic use. Samples should be within normal physiological conditions (e.g. pH). This assay does not include adulteration/specimen validity testing. In clinical settings, confirmatory testing is at the practitioner's discretion [1]. If clinically indicated, confirmation by high specificity, quantitative methodology, which includes adulteration/specimen validity testing, may be requested on the same specimen through Client Services ([phone]) if contacted within 48 hours of initial testing. [1]Substance Abuse and Mental Health Services Administration (2012). Clinical Drug Testing in Primary Care Technical Assistance Publication Series 32. Department of Health and Human Services, [place], p.10. [facility] Amphetamines Confirm (U) [Mass/Vol] Negative Normal Negative [facility] Comment on above: Order Comment: Speci men Type: URINE SPECIMENOrdering Facility: [facility] Address: [address] [place] [address] Result Comment: Cuto ff threshold at 1000 ng/mL. Performed By: #### U TOX2 ####[facility] LABCLIA [id number] [place] [address] [place] BARBITURATES, URINE Negative Normal Negative [facility] Comment on above: Order Comment: Speci men Type: URINE SPECIMENOrdering Facility: [facility] Address: [address] [place] [address] Result Comment: Cuto ff threshold at 200 ng/mL. Performed By: #### U TOX2 ####[facility] LABIA [id number] [place] [address] [place] BENZODIAZEPINES, UR Negative Normal Negative [facility] Comment on above: Order Comment: Speci men Type: URINE SPECIMENOrdering Facility: [facility] Address: [address] [place] [address] Result Comment: Cuto ff threshold at 200 ng/mL. Performed By: #### U TOX2 ####[facility] LABCLIA [id number] [place] [address] [place] Cannabinoids Screen Ql (U) Negative Normal Negative [facility] Comment on above: Order Comment: Speci men Type: URINE SPECIMENOrdering Facility: [facility] Address: [address] [place] [address] Result Comment: Cuto ff threshold at 50 ng/mL. Performed By: #### U TOX2 ####[facility] LABCLIA [id number] [place] [address] [place] Cocaine Ql (U) Negative Normal Negative [facility] Comment on above: Order Comment: Speci men Type: URINE SPECIMENOrdering Facility: [facility] Address: [address] [place] [address] Result Comment: Cuto ff threshold at 300 ng/mL. Performed By: #### U TOX2 ####[facility] LABCLIA [id number] [place] [address] [place] Ethanol (U) [Mass/Vol] <11 Normal <11 [facility] Comment on above: Order Comment: Speci men Type: URINE SPECIMENOrdering Facility: [facility] Address: [address] [place] [address] Performed By: #### U TOX2 ####[facility] LABCLIA [id number] [place] [address] [place] Opiates Screen Ql (U) Negative Normal Negative [facility] Comment on above: Order Comment: Speci men Type: URINE SPECIMENOrdering Facility: [facility] Address: [address] [place] [address] Result Comment: Cuto ff threshold at 300 ng/mL. Performed By: #### U TOX2 ####[facility] LABCLIA [id number] [place] [address] [place] oxyCODONE cutoff Screen (U) [Mass/Vol] Negative Normal Negative [facility] Comment on above: Order Comment: Speci men Type: URINE SPECIMENOrdering Facility: [facility] Address: [address] [place] [address] Result Comment: Cuto ff threshold at 100 ng/mL. Performed By: #### U TOX2 ####[facility] LABCLIA [id number] [place] [address] [place] Phencyclidine Ql (U) Negative Normal Negative [facility] Comment on above: Order Comment: Speci men Type: URINE SPECIMENOrdering Facility: [facility] Address: [address] [place] [address] Result Comment: Cuto ff threshold at 25 ng/mL. Performed By: #### U TOX2 ####[facility] LABCLIA [id number] [facility] [id number] [address] [place] CNPNon 03-30-[address] [facility] CNOVon 03-29-2024 CNOV Normal [facility] CNPNon 03-28-[address] [facility] CNPNon 03-21-[address] [facility] CNPNon 03-11-[address] [facility] CNOVon 03-08-[address] [facility] XR LUMBAR 2V AP/LATon 2023 XR LUMBAR 2V AP/LAT Normal [facility] CNCOon 03-07-2024 CNCO Letter Text Normal [facility] CNPNon 03-04-[address] [facility] CNPNon 03-02-[address] [facility] CNOVon 02-26-2024 CNOV Normal [facility] CNOVon 02-24-2024 CNOV Normal [facility] Basic metabolic 2000 panelon 02-22-2024 Anion gap [Moles/Vol] 6 mmol/L Normal 5-16 [facility] Comment on above: Order Comment: Speci men Type: BLOOD SPECIMENOrdering Facility: [facility] Address: [address] [place] [address] Performed By: #### 2 4321-2 ####[facility] LABORATORYCLIA [id number] [place] [address] [place] Calcium [Mass/Vol] 9.6 mg/dL Normal 8.5-10.5 [facility] Comment on above: Order Comment: Speci men Type: BLOOD SPECIMENOrdering Facility: [facility] Address: [address] [place] [address] Performed By: #### 2 4321-2 ####[facility] LABORATORYCLIA [id number] [place] [id number] [place] Chloride [Moles/Vol] 108 mmol/L High 98-107 [facility] Comment on above: Order Comment: Speci men Type: BLOOD SPECIMENOrdering Facility: [facility] Address: [address] [place] [address] Performed By: #### 2 4321-2 ####[facility] LABORATORYCLIA [id number] [place] [id number] [place] CO2 [Moles/Vol] 25 mmol/L Normal 21-32 [facility] Comment on above: Order Comment: Speci men Type: BLOOD SPECIMENOrdering Facility: [facility] Address: [address] [place] [address] Performed By: #### 2 4321-2 ####[facility] LABORATORYCLIA [id number] [place] [address] [place] Creatinine [Mass/Vol] 0.48 mg/dL Low 0.51-0.95 [facility] Comment on above: Order Comment: Speci men Type: BLOOD SPECIMENOrdering Facility: [facility] Address: [address] [place] [address] Result Comment: Ramila ents receiving either N-Acetylcysteine (NAC) or Metamizole prior to venipuncture, may have falsely depressed results. Performed By: #### 2 4321-2 ####[facility] LABORATORYCLIA [id number] [place] [address] [facility] [place] Creatinine and Glomerular filtration rate.predicted panel (S/P/Bld) 103 mL/min/1.73m??? Normal >=60 [facility] Comment on above: Order Comment: Speci men Type: BLOOD SPECIMENOrdering Facility: [facility] Address: [address] [place] [address] Result Comment: Julianne mated Glomerular Filtration Rate (eGFR) is calculated using the 2020 CKD-EPI creatinine equation. This equation utilizes serum creatinine, sex, and age as parameters. The creatinine assay has traceable calibration to isotope dilution-mass spectrometry. Refer to KDIGO guidelines for clinical interpretation. In patients with unstable renal function, e.g. those with acute kidney injury, the eGFR may not accurately reflect actual GFR. Performed By: #### 2 4321-2 ####[facility] LABORATORYCLIA [id number] [place] [id number] [place] Glucose [Mass/Vol] 250 mg/dL High 70-100 [facility] Comment on above: Order Comment: Speci men Type: BLOOD SPECIMENOrdering Facility: [facility] Address: [address] [place], [place] [id number] Result Comment: The [place] Diabetes [employer] (ADA) provides guidance for cutoff values for fasting glucose and random glucose. The ADA defines fasting as no caloric intake for at least 8 hours. Fasting plasma glucose results between 100 to 125 mg/dL indicate increased risk for diabetes (prediabetes).Fasting plasma glucose results greater than or equal to 126 mg/dL meet the criteria for diagnosis of diabetes. In the absence of unequivocal hyperglycemia, results should be confirmed by repeat testing. In a patient with classic symptoms of hyperglycemia or hyperglycemic crisis, random plasma glucose results greater than or equal to 200 mg/dL meet the criteria for diagnosis of diabetes.Reference: Standards of Medical Care in Diabetes 2016, [place] [employer]. Diabetes Care. 2016.39(Suppl 1).Results may be falsely elevated after the administration of Sulfapyridine.Results may be falsely depressed after the administration of Sulfasalazine. Performed By: #### 2 4321-2 ####[facility] LABORATORYCLIA [id number] [place] [address] [place] Potassium [Moles/Vol] 4.0 mmol/L Normal 3.5-5.1 [facility] Comment on above: Order Comment: Speci men Type: BLOOD SPECIMENOrdering Facility: [facility] Address: [address] [place] [address] Performed By: #### 2 4321-2 ####[facility] LABORATORYCLIA [id number] [place] [id number] [place] Sodium [Moles/Vol] 139 mmol/L Normal 136-145 [facility] Comment on above: Order Comment: Speci men Type: BLOOD SPECIMENOrdering Facility: [facility] Address: [address] [place] [address] Performed By: #### 2 4321-2 ####[facility] LABORATORYCLIA [id number] [place] [id number] [place] Urea nitrogen [Mass/Vol] 10 mg/dL Normal 11-19 [facility] Comment on above: Order Comment: Speci men Type: BLOOD SPECIMENOrdering Facility: [facility] Address: [address] [place] [address] Performed By: #### 2 4321-2 ####[facility] LABORATORYCLIA [id number] [address] [place] CASE MANAGEMon 02-22-[address] [facility] CBC panel Auto (Bld)on 02-21 Erythrocyte distribution width (RBC) [Ratio] 13.2 % Normal 11.5-15.0 [facility] Comment on above: Order Comment: Speci men Type: BLOOD SPECIMENOrdering Facility: [facility] Address: [address] [place] [address] Performed By: #### 5 8410-2 ####[facility] LABORATORYCLIA [id number] [address] [place] Hematocrit (Bld) [Volume fraction] 33.0 % Low 36.0-46.0 [facility] Comment on above: Order Comment: Speci men Type: BLOOD SPECIMENOrdering Facility: [facility] Address: [address] [place] [address] Performed By: #### 5 8410-2 ####[facility] LABORATORYCLIA [id number] [address] [place] Hemoglobin (Bld) [Mass/Vol] 10.9 g/dL Low 11.5-15.5 [facility] Comment on above: Order Comment: Speci men Type: BLOOD SPECIMENOrdering Facility: [facility] Address: [address] [place] [address] Performed By: #### 5 8410-2 ####[facility] LABORATORYCLIA [id number] [place] [id number] [place] MCH (RBC) [Entitic mass] 31.1 pg Normal 26.0-34.0 [facility] Comment on above: Order Comment: Speci men Type: BLOOD SPECIMENOrdering Facility: [facility] Address: [address] [place] [address] Performed By: #### 5 8410-2 ####[facility] LABORATORYCLIA [id number] [address] [place] MCHC (RBC) [Mass/Vol] 33.0 g/dL Normal 30.5-36.0 [facility] Comment on above: Order Comment: Speci men Type: BLOOD SPECIMENOrdering Facility: [facility] Address: [address] [place] [address] Performed By: #### 5 8410-2 ####[facility] LABORATORYCLIA [id number] [place] [address] [place] MCV (RBC) [Entitic vol] 94.0 fL Normal 80.0-100.0 [facility] Comment on above: Order Comment: Speci men Type: BLOOD SPECIMENOrdering Facility: [facility] Address: [address] [place] [address] Performed By: #### 5 8410-2 ####[facility] LABORATORYCLIA [id number] [place] [address] [place] Nucleated RBC (Bld) [#/Vol] 10*3/uL Normal <0.01 [facility] Comment on above: Order Comment: Speci men Type: BLOOD SPECIMENOrdering Facility: [facility] Address: [address] [place] [address] Performed By: #### 5 8410-2 ####[facility] LABORATORYCLIA [id number] [place] [address] [place] Platelet mean volume (Bld) [Entitic vol] 9.4 fL Normal 9.0-12.7 [facility] Comment on above: Order Comment: Speci men Type: BLOOD SPECIMENOrdering Facility: [facility] Address: [address] [place] [address] Performed By: #### 5 8410-2 ####[facility] LABORATORYCLIA [id number] [place] [id number] [facility] [place] Platelets (Bld) [#/Vol] 263 10*3/uL Normal 150-400 [facility] Comment on above: Order Comment: Speci men Type: BLOOD SPECIMENOrdering Facility: [facility] Address: [address] [place] [address] Performed By: #### 5 8410-2 ####[facility] LABORATORYCLIA [id number] [place] [address] [facility] [place] RBC (Bld) [#/Vol] 3.51 10*6/uL Low 3.90-5.20 [facility] Comment on above: Order Comment: Speci men Type: BLOOD SPECIMENOrdering Facility: [facility] Address: [address] [place] [address] Performed By: #### 5 8410-2 ####[facility] LABORATORYCLIA [id number] [address] WBC (Bld) [#/Vol] 5.71 10*3/uL Normal 3.70-11.00 [facility] Comment on above: Order Comment: Speci men Type: BLOOD SPECIMENOrdering Facility: [facility] Address: [address] [place] [address] Performed By: #### 5 8410-2 ####[facility] LABORATORYCLIA [id number] [place] [id number] [facility] [place] CNDSon 02-22-[address] [facility] CONSULT PROGon 02-22-[address] [facility] Basic metabolic 2000 panelon 02-21-2024 Anion gap [Moles/Vol] 5 mmol/L Normal 5-16 [facility] Comment on above: Order Comment: Speci men Type: BLOOD SPECIMENOrdering Facility: [facility] Address: [address] [place] [address] Performed By: #### 2 4321-2 ####[facility] LABORATORYCLIA [id number] [place] [id number] [place] Calcium [Mass/Vol] 9.1 mg/dL Normal 8.5-10.5 [facility] Comment on above: Order Comment: Speci men Type: BLOOD SPECIMENOrdering Facility: [facility] Address: [address] [place] [address] Performed By: #### 2 4321-2 ####[facility] LABORATORYCLIA [id number] [place] [id number] [place] Chloride [Moles/Vol] 108 mmol/L High 98-107 [facility] Comment on above: Order Comment: Speci men Type: BLOOD SPECIMENOrdering Facility: [facility] Address: [address] [place] [address] Performed By: #### 2 4321-2 ####[facility] LABORATORYCLIA [id number] [place] [address] [place] CO2 [Moles/Vol] 26 mmol/L Normal 21-32 [facility] Comment on above: Order Comment: Speci men Type: BLOOD SPECIMENOrdering Facility: [facility] Address: [address] [place] [address] Performed By: #### 2 4321-2 ####[facility] LABORATORYCLIA [id number] [place] [address] [place] Creatinine [Mass/Vol] 0.54 mg/dL Normal 0.51-0.95 [facility] Comment on above: Order Comment: Speci men Type: BLOOD SPECIMENOrdering Facility: [facility] Address: [address] [place] [address] Result Comment: Ramila ents receiving either N-Acetylcysteine (NAC) or Metamizole prior to venipuncture, may have falsely depressed results. Performed By: #### 2 4321-2 ####[facility] LABORATORYCLIA [id number] [place] [address] [place] Creatinine and Glomerular filtration rate.predicted panel (S/P/Bld) 100 mL/min/1.73m??? Normal >=60 [facility] Comment on above: Order Comment: Speci men Type: BLOOD SPECIMENOrdering Facility: [facility] Address: [address] [place] [id number] Result Comment: Julianne mated Glomerular Filtration Rate (eGFR) is calculated using the 2020 CKD-EPI creatinine equation. This equation utilizes serum creatinine, sex, and age as parameters. The creatinine assay has traceable calibration to isotope dilution-mass spectrometry. Refer to KDIGO guidelines for clinical interpretation. In patients with unstable renal function, e.g. those with acute kidney injury, the eGFR may not accurately reflect actual GFR. Performed By: #### 2 4321-2 ####[facility] LABORATORYCLIA [id number] [place] [address] [place] Glucose [Mass/Vol] 101 mg/dL High 70-100 [facility] Comment on above: Order Comment: Luis velez Type: BLOOD SPECIMENOrdering Facility: [facility] Address: [address] [place] [address] Result Comment: The [place] Diabetes [employer] (ADA) provides guidance for cutoff values for fasting glucose and random glucose. The ADA defines fasting as no caloric intake for at least 8 hours. Fasting plasma glucose results between 100 to 125 mg/dL indicate increased risk for diabetes (prediabetes).Fasting plasma glucose results greater than or equal to 126 mg/dL meet the criteria for diagnosis of diabetes. In the absence of unequivocal hyperglycemia, results should be confirmed by repeat testing. In a patient with classic symptoms of hyperglycemia or hyperglycemic crisis, random plasma glucose results greater than or equal to 200 mg/dL meet the criteria for diagnosis of diabetes.Reference: Standards of Medical Care in Diabetes 2016, [place] [employer]. Diabetes Care. 2016.39(Suppl 1).Results may be falsely elevated after the administration of Sulfapyridine.Results may be falsely depressed after the administration of Sulfasalazine. Performed By: #### 2 4321-2 ####[facility] LABORATORYCLIA [id number] [place] [id number] [place] Potassium [Moles/Vol] 4.1 mmol/L Normal 3.5-5.1 [facility] Comment on above: Order Comment: Luis velez Type: BLOOD SPECIMENOrdering Facility: [facility] Address: [address] [place] [id number] Performed By: #### 2 4321-2 ####[facility] LABORATORYCLIA [id number] [place] [id number] [place] Sodium [Moles/Vol] 139 mmol/L Normal 136-145 [facility] Comment on above: Order Comment: Speci men Type: BLOOD SPECIMENOrdering Facility: [facility] Address: [address] [place] [address] Performed By: #### 2 4321-2 ####[facility] LABORATORYCLIA [id number] [place] [id number] [place] Urea nitrogen [Mass/Vol] 13 mg/dL Normal 7-26 [facility] Comment on above: Order Comment: Speci men Type: BLOOD SPECIMENOrdering Facility: [facility] Address: [address] [place] [address] Performed By: #### 2 4321-2 ####[facility] LABORATORYCLIA [id number] [place] [id number] [place] CASE MANAGEMon 02-21-[address] [facility] CBC panel Auto (Bld)on 02-20 Erythrocyte distribution width (RBC) [Ratio] 13.2 % Normal 11.5-15.0 [facility] Comment on above: Order Comment: Speci men Type: BLOOD SPECIMENOrdering Facility: [facility] Address: [address] [place] [address] Performed By: #### 5 8410-2 ####[facility] LABORATORYCLIA [id number] [address] [place] Hematocrit (Bld) [Volume fraction] 33.2 % Low 36.0-46.0 [facility] Comment on above: Order Comment: Speci men Type: BLOOD SPECIMENOrdering Facility: [facility] Address: [address] [place] [address] Performed By: #### 5 8410-2 ####[facility] LABORATORYCLIA [id number] [place] [id number] [place] Hemoglobin (Bld) [Mass/Vol] 10.4 g/dL Low 11.5-15.5 [facility] Comment on above: Order Comment: Speci men Type: BLOOD SPECIMENOrdering Facility: [facility] Address: [address] [place] [address] Performed By: #### 5 8410-2 ####[facility] LABORATORYCLIA [id number] [place] [id number] [facility] MCH (RBC) [Entitic mass] 30.3 pg Normal 26.0-34.0 [facility] Comment on above: Order Comment: Speci men Type: BLOOD SPECIMENOrdering Facility: [facility] Address: [address] [place] [address] Performed By: #### 5 8410-2 ####[facility] LABORATORYCLIA [id number] [address] [place] MCHC (RBC) [Mass/Vol] 31.3 g/dL Normal 30.5-36.0 [facility] Comment on above: Order Comment: Speci men Type: BLOOD SPECIMENOrdering Facility: [facility] Address: [address] [place] [address] Performed By: #### 5 8410-2 ####[facility] LABORATORYCLIA [id number] [address] [place] MCV (RBC) [Entitic vol] 96.8 fL Normal 80.0-100.0 [facility] Comment on above: Order Comment: Speci men Type: BLOOD SPECIMENOrdering Facility: [facility] Address: [address] [place] [address] Performed By: #### 5 8410-2 ####[facility] LABORATORYCLIA [id number] [address] [place] Nucleated RBC (Bld) [#/Vol] 10*3/uL Normal <0.01 [facility] Comment on above: Order Comment: Speci men Type: BLOOD SPECIMENOrdering Facility: [facility] Address: [address] [place] [address] Performed By: #### 5 8410-2 ####[facility] LABORATORYCLIA [id number] [place] [id number] [place] Platelet mean volume (Bld) [Entitic vol] 9.7 fL Normal 9.0-12.7 [facility] Comment on above: Order Comment: Speci men Type: BLOOD SPECIMENOrdering Facility: [facility] Address: [address] [place] [address] Performed By: #### 5 8410-2 ####[facility] LABORATORYCLIA [id number] [place] [id number] [place] Platelets (Bld) [#/Vol] 271 10*3/uL Normal 150-400 [facility] Comment on above: Order Comment: Speci men Type: BLOOD SPECIMENOrdering Facility: [facility] Address: [address] [place] [address] Performed By: #### 5 8410-2 ####[facility] LABORATORYCLIA [id number] [place] [address] [place] RBC (Bld) [#/Vol] 3.43 10*6/uL Low 3.90-5.20 [facility] Comment on above: Order Comment: Speci men Type: BLOOD SPECIMENOrdering Facility: [facility] Address: [address] [place] [address] Performed By: #### 5 8410-2 ####[facility] LABORATORYCLIA [id number] [place] [id number] [place] WBC (Bld) [#/Vol] 6.65 10*3/uL Normal 3.70-11.00 [facility] Comment on above: Order Comment: Speci men Type: BLOOD SPECIMENOrdering Facility: [facility] Address: [address] [place] [address] Performed By: #### 5 8410-2 ####[facility] LABORATORYCLIA [id number] [place] [id number] [facility] [place] CONSULT PROGon 02-21-[address] [facility] THERAPY NTon 02-21-[address] [facility] CBC panel Auto (Bld)on 02-19 Erythrocyte distribution width (RBC) [Ratio] 13.2 % Normal 11.5-15.0 [facility] Comment on above: Order Comment: Speci men Type: BLOOD SPECIMENOrdering Facility: [facility] Address: [address] [place] [address] Performed By: #### 5 8410-2 ####[facility] LABORATORYCLIA [id number] [address] OF [facility] Hematocrit (Bld) [Volume fraction] 32.5 % Low 36.0-46.0 [facility] Comment on above: Order Comment: Speci men Type: BLOOD SPECIMENOrdering Facility: [facility] Address: [address] [place] [address] Performed By: #### 5 8410-2 ####[facility] LABORATORYCLIA [id number] [address] [place] Hemoglobin (Bld) [Mass/Vol] 10.4 g/dL Low 11.5-15.5 [facility] Comment on above: Order Comment: Speci men Type: BLOOD SPECIMENOrdering Facility: [facility] Address: [address] [place] [address] Performed By: #### 5 8410-2 ####[facility] LABORATORYCLIA [id number] [place] [address] [place] MCH (RBC) [Entitic mass] 30.9 pg Normal 26.0-34.0 [facility] Comment on above: Order Comment: Speci men Type: BLOOD SPECIMENOrdering Facility: [facility] Address: [address] [place] [address] Performed By: #### 5 8410-2 ####[facility] LABORATORYCLIA [id number] [address] [place] MCHC (RBC) [Mass/Vol] 32.0 g/dL Normal 30.5-36.0 [facility] Comment on above: Order Comment: Speci men Type: BLOOD SPECIMENOrdering Facility: [facility] Address: [address] [place] [address] Performed By: #### 5 8410-2 ####[facility] LABORATORYCLIA [id number] [place] [id number] [place] MCV (RBC) [Entitic vol] 96.4 fL Normal 80.0-100.0 [facility] [facility] [place] Comment on above: Order Comment: Speci men Type: BLOOD SPECIMENOrdering Facility: [facility] Address: [address] [place] [address] Performed By: #### 5 8410-2 ####[facility]ORATORYCLIA [id number] [address] [place] Nucleated RBC (Bld) [#/Vol] 10*3/uL Normal <0.01 [facility] Comment on above: Order Comment: Speci men Type: BLOOD SPECIMENOrdering Facility: [facility] Address: [address] [place] [address] Performed By: #### 5 8410-2 ####[facility]ATORYCLIA [id number] [place] [address] [place] Platelet mean volume (Bld) [Entitic vol] 9.7 fL Normal 9.0-12.7 [facility] Comment on above: Order Comment: Speci men Type: BLOOD SPECIMENOrdering Facility: [facility] Address: [address] [place] [address] Performed By: #### 5 8410-2 ####[facility]ATORYCLIA [id number] [place] [address] [place] Platelets (Bld) [#/Vol] 251 10*3/uL Normal 150-400 [facility] Comment on above: Order Comment: Speci men Type: BLOOD SPECIMENOrdering Facility: [facility] Address: [address] [place] [address] Performed By: #### 5 8410-2 ####[facility]ATORYCLIA [id number] [place] [address] [place] RBC (Bld) [#/Vol] 3.37 10*6/uL Low 3.90-5.20 [facility] Comment on above: Order Comment: Speci men Type: BLOOD SPECIMENOrdering Facility: [facility] Address: [address] [place] [address] Performed By: #### 5 8410-2 ####[facility]ATORYCLIA [id number] [place] [id number] [place] WBC (Bld) [#/Vol] 6.60 10*3/uL Normal 3.70-11.00 [facility] Comment on above: Order Comment: Speci men Type: BLOOD SPECIMENOrdering Facility: [facility] Address: [address] [place] [address] Performed By: #### 5 8410-2 ####[facility]ATORYCLIA [id number] [address] OF [facility] CONSULT PROGon 02-20-[address] [facility] Comprehensive metabolic 2000 panelon 02-20-2024 Albumin [Mass/Vol] 2.5 g/dL Low 3.2-5.0 [facility] Comment on above: Order Comment: Speci men Type: BLOOD SPECIMENOrdering Facility: [facility] Address: [address] [place] [address] Performed By: #### 2 4323-8 ####[facility]ATORYCLIA [id number] [place] [address] [place] ALP [Catalytic activity/Vol] 116 U/L Normal 45-117 [facility] Comment on above: Order Comment: Speci men Type: BLOOD SPECIMENOrdering Facility: [facility] Address: [address] [place] [address] Performed By: #### 2 4323-8 ####[facility]ORYCLIA [id number] [address] [place] ALT [Catalytic activity/Vol] 9 U/L Low 13-61 [facility] Comment on above: Order Comment: Speci men Type: BLOOD SPECIMENOrdering Facility: [facility] Address: [facility] [place] [address] Result Comment: Resu lts may be falsely depressed after the administration of Sulfasalazine and/or Sulfapyridine. Performed By: #### 2 4323-8 ####[facility]ATORYCLIA [id number] [place] [id number] [place] Anion gap [Moles/Vol] 6 mmol/L Normal 5-16 [facility] Comment on above: Order Comment: Speci men Type: BLOOD SPECIMENOrdering Facility: [facility] Address: [address] [place] [address] Performed By: #### 2 4323-8 ####[facility]ORYCLIA [id number] [place] [id number] [place] AST [Catalytic activity/Vol] 21 U/L Normal 8-34 [facility] Comment on above: Order Comment: Speci men Type: BLOOD SPECIMENOrdering Facility: [facility] Address: [address] [place] [address] Result Comment: Resu lts may be falsely depressed after the administration of Sulfasalazine and/or Sulfapyridine. Performed By: #### 2 4323-8 ####[facility]ATORYCLIA [id number] [place] [address] [place] Bilirubin [Mass/Vol] 0.2 mg/dL Normal 0.2-1.0 [facility] Comment on above: Order Comment: Speci men Type: BLOOD SPECIMENOrdering Facility: [facility] Address: [address] [place] [address] Performed By: #### 2 4323-8 ####[facility]ATORYCLIA [id number] [place] [id number] [place] Calcium [Mass/Vol] 8.5 mg/dL Normal 8.5-10.5 [facility] Comment on above: Order Comment: Speci men Type: BLOOD SPECIMENOrdering Facility: [facility] Address: [address] [place] [address] Performed By: #### 2 4323-8 ####[facility]ORYCLIA [id number] [place] [address] [place] Chloride [Moles/Vol] 108 mmol/L High 98-107 [facility] Comment on above: Order Comment: Speci men Type: BLOOD SPECIMENOrdering Facility: [facility] Address: [address] [place] [address] Performed By: #### 2 4323-8 ####[facility]ORYCLIA [id number] [place] [address] [place] CO2 [Moles/Vol] 23 mmol/L Normal 21-32 [facility] Comment on above: Order Comment: Speci men Type: BLOOD SPECIMENOrdering Facility: [facility] Address: [address] [place] [address] Performed By: #### 2 4323-8 ####[facility]ORYCLIA [id number] [place] [address] [place] Creatinine [Mass/Vol] 0.64 mg/dL Normal 0.51-0.95 [facility] Comment on above: Order Comment: Speci men Type: BLOOD SPECIMENOrdering Facility: [facility] Address: [address] [place] [address] Result Comment: Ramila ents receiving either N-Acetylcysteine (NAC) or Metamizole prior to venipuncture, may have falsely depressed results. Performed By: #### 2 4323-8 ####[facility]ATORYCLIA [id number] [address] Creatinine and Glomerular filtration rate.predicted panel (S/P/Bld) 96 mL/min/1.73m??? Normal >=60 [facility] Comment on above: Order Comment: Speci men Type: BLOOD SPECIMENOrdering Facility: [facility] Address: [address] [place] [address] Result Comment: Julianne mated Glomerular Filtration Rate (eGFR) is calculated using the 2020 CKD-EPI creatinine equation. This equation utilizes serum creatinine, sex, and age as parameters. The creatinine assay has traceable calibration to isotope dilution-mass spectrometry. Refer to KDIGO guidelines for clinical interpretation. In patients with unstable renal function, e.g. those with acute kidney injury, the eGFR may not accurately reflect actual GFR. Performed By: #### 2 4323-8 ####[facility]ATORYCLIA [id number] [place] [id number] [place] Glucose [Mass/Vol] 174 mg/dL High 70-100 [facility] Comment on above: Order Comment: Luis velez Type: BLOOD SPECIMENOrdering Facility: [facility] Address: [address] [place] [address] Result Comment: The [place] [employer] (ADA) provides guidance for cutoff values for fasting glucose and random glucose. The ADA defines fasting as no caloric intake for at least 8 hours. Fasting plasma glucose results between 100 to 125 mg/dL indicate increased risk for diabetes (prediabetes).Fasting plasma glucose results greater than or equal to 126 mg/dL meet the criteria for diagnosis of diabetes. In the absence of unequivocal hyperglycemia, results should be confirmed by repeat testing. In a patient with classic symptoms of hyperglycemia or hyperglycemic crisis, random plasma glucose results greater than or equal to 200 mg/dL meet the criteria for diagnosis of diabetes.Reference: Standards of Medical Care in Diabetes 2016, [place] [employer]. Diabetes Care. 2016.39(Suppl 1).Results may be falsely elevated after the administration of Sulfapyridine.Results may be falsely depressed after the administration of Sulfasalazine. Performed By: #### 2 4323-8 ####[facility]ATORYCLIA [id number] [place] [id number] [place] Potassium [Moles/Vol] 3.9 mmol/L Normal 3.5-5.1 [facility] Comment on above: Order Comment: Luis velez Type: BLOOD SPECIMENOrdering Facility: [facility] Address: [address] [place] [address] Performed By: #### 2 4323-8 ####[facility]ATORYCLIA [id number] [place] [id number] [place] Protein [Mass/Vol] 5.4 g/dL Low 6.0-8.5 [facility] Comment on above: Order Comment: Luis velez Type: BLOOD SPECIMENOrdering Facility: [facility] Address: [address] [place] [address] Performed By: #### 2 4323-8 ####[facility]ATORYCLIA [id number] [place] [id number] [place] Sodium [Moles/Vol] 137 mmol/L Normal 136-145 [facility] Comment on above: Order Comment: Speci men Type: BLOOD SPECIMENOrdering Facility: [facility] Address: [facility] [address] Performed By: #### 2 4323-8 ####[facility]ATORYCLIA [id number] [place] [id number] [place] Urea nitrogen [Mass/Vol] 19 mg/dL Normal 11-19 [facility] Comment on above: Order Comment: Speci men Type: BLOOD SPECIMENOrdering Facility: [facility] Address: [address] [place] [address] Performed By: #### 2 4323-8 ####[facility]ATORYCLIA [id number] [place] [id number] [place] THERAPY NTon 02-20-[address] [facility] THERAPY NT [facility] ANES POSTPROC EVALon [address] [facility] ANES PRE-OPon 02-19-2024 ANES PRE-OP [facility] BRIEF OP NOTon 02-19-[address] NOT Normal [facility] Bacteria Bld Culton 02-19-20 24 Bacteria identified Cx Nom (Bld) CULTURE, BLOOD: No growth [address] [facility] Comment on above: Performed By: #### 6 00-7 ####[facility]ATORYCLIA [id number] [place] [address] [place] Bacteria identified Cx Nom (Bld) CULTURE, BLOOD: No growth [address] [facility] Comment on above: Performed By: #### 6 00-7 ####[facility]ORYCLIA [id number] [place] [id number] [place] Bacteria Spec Anaerobe Culto n 02-19-2024 Bacteria identified Anaer cx Nom (Unsp spec) Negative Normal [facility] Comment on above: Performed By: #### 6 462-6, 635-3 ####[facility]ATORYCLIA [id number] [place] [address] [place] Bacteria Wnd Culton 02-19-20 24 Bacteria identified Cx Nom (Wound) Abnormal [facility] Comment on above: Performed By: #### 6 462-6, 635-3 ####[facility]ATORYCLIA [id number] [place] [address] [place] CASE MANAGEMon 02-19-[address] [facility] CBC panel Auto (Bld)on 02-18 Erythrocyte distribution width (RBC) [Ratio] 13.2 % Normal 11.5-15.0 [facility] Comment on above: Order Comment: Speci men Type: BLOOD SPECIMENOrdering Facility: [facility] Address: [address] [place] [address] Performed By: #### 5 8410-2 ####[facility]ATORYCLIA [id number] [place] [address] [place] Hematocrit (Bld) [Volume fraction] 36.0 % Normal 36.0-46.0 [facility] Comment on above: Order Comment: Speci men Type: BLOOD SPECIMENOrdering Facility: [facility] Address: [address] [place] [address] Performed By: #### 5 8410-2 ####[facility]ATORYCLIA [id number] [place] [address] [place] Hemoglobin (Bld) [Mass/Vol] 11.4 g/dL Low 11.5-15.5 [facility] Comment on above: Order Comment: Speci men Type: BLOOD SPECIMENOrdering Facility: [facility] Address: [address] [place] [address] Performed By: #### 5 8410-2 ####[facility]ATORYCLIA [id number] [address] [place] MCH (RBC) [Entitic mass] 30.3 pg Normal 26.0-34.0 [facility] Comment on above: Order Comment: Speci men Type: BLOOD SPECIMENOrdering Facility: [facility] Address: [address] [place] [address] Performed By: #### 5 8410-2 ####[facility]ATORYCLIA [id number] [place] [address] [place] MCHC (RBC) [Mass/Vol] 31.7 g/dL Normal 30.5-36.0 [facility] Comment on above: Order Comment: Speci men Type: BLOOD SPECIMENOrdering Facility: [facility] Address: [address] [place] [address] Performed By: #### 5 8410-2 ####[facility]ATORYCLIA [id number] [address] [place] MCV (RBC) [Entitic vol] 95.7 fL Normal 80.0-100.0 [facility] Comment on above: Order Comment: Speci men Type: BLOOD SPECIMENOrdering Facility: [facility] Address: [address] [place] [address] Performed By: #### 5 8410-2 ####[facility]ATORYCLIA [id number] [address] [place] Nucleated RBC (Bld) [#/Vol] 10*3/uL Normal <0.01 [facility] Comment on above: Order Comment: Speci men Type: BLOOD SPECIMENOrdering Facility: [facility] Address: [address] [place] [address] Performed By: #### 5 8410-2 ####[facility]ATORYCLIA [id number] [address] [place] Platelet mean volume (Bld) [Entitic vol] 10.3 fL Normal 9.0-12.7 [facility] Comment on above: Order Comment: Speci men Type: BLOOD SPECIMENOrdering Facility: [facility] Address: [address] [place] [address] Performed By: #### 5 8410-2 ####[facility]ATORYCLIA [id number] [place] [id number] [facility] Platelets (Bld) [#/Vol] 238 10*3/uL Normal 150-400 [facility] Comment on above: Order Comment: Speci men Type: BLOOD SPECIMENOrdering Facility: [facility] Address: [address] [place] [address] Performed By: #### 5 8410-2 ####[facility]ATORYCLIA [id number] [place] [address] [place] RBC (Bld) [#/Vol] 3.76 10*6/uL Low 3.90-5.20 [facility] Comment on above: Order Comment: Speci men Type: BLOOD SPECIMENOrdering Facility: [facility] Address: [address] [place] [address] Performed By: #### 5 8410-2 ####[facility]ATORYCLIA [id number] [address] OF [facility] WBC (Bld) [#/Vol] 5.53 10*3/uL Normal 3.70-11.00 [facility] Comment on above: Order Comment: Speci men Type: BLOOD SPECIMENOrdering Facility: [facility] Address: [address] [place] [address] Performed By: #### 5 8410-2 ####[facility]ATORYCLIA [id number] [address] [place] CK SerPl-cCncon 02-19-2024 CK [Catalytic activity/Vol] 56 U/L Normal 28-152 [facility] Comment on above: Order Comment: Speci men Type: BLOOD SPECIMENOrdering Facility: [facility] Address: [address] [place] [address] Performed By: #### 2 4323-8, 2157-6 ####[facility]ATORYCLIA [id number] [address] [place] CNPNon 02-19-2024 CNPN Normal [facility] CONSULTon 02-19-[address] [facility] CONSULT PROGon 02-19-[address] [facility] CONSULT PROG Normal [facility] CONSULT PROG Normal [facility] Comprehensive metabolic 2000 panelon 02-19-2024 Albumin [Mass/Vol] 2.7 g/dL Low 3.2-5.0 [facility] Comment on above: Order Comment: Speci men Type: BLOOD SPECIMENOrdering Facility: [facility] Address: [address] [place] [address] Performed By: #### 2 4323-8, 2156-09 ####[facility]ATORYCLIA [id number] [place] [address] [place] ALP [Catalytic activity/Vol] 139 U/L High 45-117 [facility] Comment on above: Order Comment: Speci men Type: BLOOD SPECIMENOrdering Facility: [facility] Address: [address] [place] [address] Performed By: #### 2 4323-8, 2156-09 ####[facility]ATORYCLIA [id number] [place] [address] [place] ALT [Catalytic activity/Vol] 8 U/L Low 13-61 [facility] Comment on above: Order Comment: Speci men Type: BLOOD SPECIMENOrdering Facility: [facility] Address: [address] [place] [address] Result Comment: Resu lts may be falsely depressed after the administration of Sulfasalazine and/or Sulfapyridine. Performed By: #### 2 4323-8, 2156-09 ####[facility]ATORYCLIA [id number] [place] [id number] [place] Anion gap [Moles/Vol] 5 mmol/L Normal 5-16 [facility] Comment on above: Order Comment: Speci men Type: BLOOD SPECIMENOrdering Facility: [facility] Address: [address] [place] [address] Performed By: #### 2 4323-2156-09 ####[facility]ATORYCLIA [id number] [place] [address] [place] AST [Catalytic activity/Vol] 14 U/L Normal 8-34 [facility] Comment on above: Order Comment: Speci men Type: BLOOD SPECIMENOrdering Facility: [facility] Address: [address] [place] [address] Result Comment: Resu lts may be falsely depressed after the administration of Sulfasalazine and/or Sulfapyridine. Performed By: #### 2 43238, 2156-09 ####[facility]ATORYCLIA [id number] [place] [id number] [place] Bilirubin [Mass/Vol] 0.2 mg/dL Normal 0.2-1.0 [facility] Comment on above: Order Comment: Speci men Type: BLOOD SPECIMENOrdering Facility: [facility] Address: [address] [place] [address] Performed By: #### 2 43207-02, 2156-09 ####[facility]ATORYCLIA [id number] [place] [address] [place] Calcium [Mass/Vol] 9.2 mg/dL Normal 8.5-10.5 [facility] Comment on above: Order Comment: Speci men Type: BLOOD SPECIMENOrdering Facility: [facility] Address: [address] [place] [address] Performed By: #### 2 4328, 2156-09 ####[facility]ATORYCLIA [id number] [place] [id number] [place] Chloride [Moles/Vol] 109 mmol/L High 98-107 [facility] Comment on above: Order Comment: Speci men Type: BLOOD SPECIMENOrdering Facility: [facility] Address: [address] [place] [address] Performed By: #### 2 4323-8, 2156-09 ####[facility]ATORYCLIA [id number] [place] [id number] [place] CO2 [Moles/Vol] 24 mmol/L Normal 21-32 [facility] Comment on above: Order Comment: Speci rosie Type: BLOOD SPECIMENOrdering Facility: [facility] Address: [address] [place] [address] Performed By: #### 2 4323-8, 2156-09 ####[facility]ORATORYCLIA [id number] [place] [address] [place] Creatinine [Mass/Vol] 0.61 mg/dL Normal 0.51-0.95 [facility] Comment on above: Order Comment: Speci men Type: BLOOD SPECIMENOrdering Facility: [facility] Address: [address] [place] [address] Result Comment: Ramila ents receiving either N-Acetylcysteine (NAC) or Metamizole prior to venipuncture, may have falsely depressed results. Performed By: #### 2 4323-8, 2156-09 ####[facility]ORATORYCLIA [id number] [address] Creatinine and Glomerular filtration rate.predicted panel (S/P/Bld) 97 mL/min/1.73m??? Normal >=60 [facility] Comment on above: Order Comment: Luis velez Type: BLOOD SPECIMENOrdering Facility: [facility] Address: [address] [place] [address] Result Comment: Julianne mated Glomerular Filtration Rate (eGFR) is calculated using the 2020 CKD-EPI creatinine equation. This equation utilizes serum creatinine, sex, and age as parameters. The creatinine assay has traceable calibration to isotope dilution-mass spectrometry. Refer to KDIGO guidelines for clinical interpretation. In patients with unstable renal function, e.g. those with acute kidney injury, the eGFR may not accurately reflect actual GFR. Performed By: #### 2 4323-8, 2156-09 ####[facility]ATORYCLIA [id number] [place] [id number] [place] Glucose [Mass/Vol] 178 mg/dL High 70-100 [facility] Comment on above: Order Comment: Luis velez Type: BLOOD SPECIMENOrdering Facility: [facility] Address: [address] [place] [address] Result Comment: The [place] [employer] (ADA) provides guidance for cutoff values for fasting glucose and random glucose. The ADA defines fasting as no caloric intake for at least 8 hours. Fasting plasma glucose results between 100 to 125 mg/dL indicate increased risk for diabetes (prediabetes).Fasting plasma glucose results greater than or equal to 126 mg/dL meet the criteria for diagnosis of diabetes. In the absence of unequivocal hyperglycemia, results should be confirmed by repeat testing. In a patient with classic symptoms of hyperglycemia or hyperglycemic crisis, random plasma glucose results greater than or equal to 200 mg/dL meet the criteria for diagnosis of diabetes.Reference: Standards of Medical Care in Diabetes 2016, [place] [employer]. Diabetes Care. 2016.39(Suppl 1).Results may be falsely elevated after the administration of Sulfapyridine.Results may be falsely depressed after the administration of Sulfasalazine. Performed By: #### 2 4323-8, 2156-09 ####[facility]ATORYCLIA [id number] [place] [address] [place] Potassium [Moles/Vol] 4.0 mmol/L Normal 3.5-5.1 [facility] Comment on above: Order Comment: Speci men Type: BLOOD SPECIMENOrdering Facility: [facility] Address: [address] [place] [address] Performed By: #### 2 4323-8, 2156-09 ####[facility]ATORYCLIA [id number] [place] [address] [place] Protein [Mass/Vol] 5.7 g/dL Low 6.0-8.5 [facility] Comment on above: Order Comment: Speci men Type: BLOOD SPECIMENOrdering Facility: [facility] Address: [address] [place] [address] Performed By: #### 2 4323-8, 2156-09 ####[facility]ATORYCLIA [id number] [place] [id number] [place] Sodium [Moles/Vol] 138 mmol/L Normal 136-145 [facility] Comment on above: Order Comment: Speci men Type: BLOOD SPECIMENOrdering Facility: [facility] Address: [address] [place] [address] Performed By: #### 2 4323-8, 2156-09 ####[facility]ATORYCLIA [id number] [place] [address] [place] Urea nitrogen [Mass/Vol] 16 mg/dL Normal 7-26 [facility] Comment on above: Order Comment: Speci men Type: BLOOD SPECIMENOrdering Facility: [facility] Address: [address] [place] [address] Performed By: #### 2 4323-8, 2156-09 ####[facility] LABORATORYCLIA [id number] [place] [address] [place] OPERATIVE NOon 02-19-[address] [facility] STAPHYLOCOCCUS AUREUS AND MR SA SCREEN, PCR, NASALon 02-19-2024 S. aureus and MRSA panel VENANCIO+probe (Nose) Methicillin-RESISTANT Staphylococcus aureus (MRSA) Detected Abnormal Not Detected [facility] Comment on above: Order Comment: Speci men Type: SWABOrdering Facility: [facility] Address: [address] [place] [address] Performed By: #### S APCR ####[facility]ORATORYCLIA [id number] [place] [address] [place] AST SerPl-cCncon 02-18-2024 AST [Catalytic activity/Vol] 17 U/L Normal 8-34 [facility] Comment on above: Order Comment: Speci men Type: BLOOD SPECIMENOrdering Facility: [facility] Address: [address] [place] [address] Result Comment: Resu lts may be falsely depressed after the administration of Sulfasalazine and/or Sulfapyridine. Performed By: #### 1 920-8, K1 ####[facility] LABORATORYCLIA [id number] [place] [address] [place] Bacteria Wnd Culton 02-18-20 24 Bacteria identified Cx Nom (Wound) Abnormal [facility] Comment on above: Performed By: #### 6 462-6 ####[facility]ATORYCLIA [id number] [place] [id number] [facility] [place] CBC panel Auto (Bld)on 02-17 Erythrocyte distribution width (RBC) [Ratio] 13.3 % Normal 11.5-15.0 [facility] Comment on above: Order Comment: Speci men Type: BLOOD SPECIMENOrdering Facility: [facility] Address: [address] [place] [address] Performed By: #### 5 8410-2 ####[facility]ATORYCLIA [id number] [address] [place] Hematocrit (Bld) [Volume fraction] 35.5 % Low 36.0-46.0 [facility] Comment on above: Order Comment: Speci men Type: BLOOD SPECIMENOrdering Facility: [facility] Address: [address] [place] [address] Performed By: #### 5 8410-2 ####[facility]ATORYCLIA [id number] [address] [place] Hemoglobin (Bld) [Mass/Vol] 11.4 g/dL Low 11.5-15.5 [facility] Comment on above: Order Comment: Speci men Type: BLOOD SPECIMENOrdering Facility: [facility] Address: [address] [place] [address] Performed By: #### 5 8410-2 ####[facility]ATORYCLIA [id number] [address] [place] MCH (RBC) [Entitic mass] 31.0 pg Normal 26.0-34.0 [facility] Comment on above: Order Comment: Speci men Type: BLOOD SPECIMENOrdering Facility: [facility] Address: [address] [place] [address] Performed By: #### 5 8410-2 ####[facility]ORYCLIA [id number] [address] [place] MCHC (RBC) [Mass/Vol] 32.1 g/dL Normal 30.5-36.0 [facility] Comment on above: Order Comment: Speci men Type: BLOOD SPECIMENOrdering Facility: [facility] Address: [address] [place] [address] Performed By: #### 5 8410-2 ####[facility]ATORYCLIA [id number] [place] [id number] [place] MCV (RBC) [Entitic vol] 96.5 fL Normal 80.0-100.0 [facility] Comment on above: Order Comment: Speci men Type: BLOOD SPECIMENOrdering Facility: [facility] Address: [address] [place] [address] Performed By: #### 5 8410-2 ####[facility]ATORYCLIA [id number] [place] [address] [place] Nucleated RBC (Bld) [#/Vol] 10*3/uL Normal <0.01 [facility] Comment on above: Order Comment: Speci men Type: BLOOD SPECIMENOrdering Facility: [facility] Address: [address] [place] [address] Performed By: #### 5 8410-2 ####[facility]ATORYCLIA [id number] [place] [address] [place] Platelet mean volume (Bld) [Entitic vol] 9.9 fL Normal 9.0-12.7 [facility] Comment on above: Order Comment: Speci men Type: BLOOD SPECIMENOrdering Facility: [facility] Address: [address] [place] [address] Performed By: #### 5 8410-2 ####[facility]ATORYCLIA [id number] [place] [address] [place] Platelets (Bld) [#/Vol] 264 10*3/uL Normal 150-400 [facility] Comment on above: Order Comment: Speci men Type: BLOOD SPECIMENOrdering Facility: [facility] Address: [address] [place] [address] Performed By: #### 5 8410-2 ####[facility]ATORYCLIA [id number] [address] [place] RBC (Bld) [#/Vol] 3.68 10*6/uL Low 3.90-5.20 [facility] Comment on above: Order Comment: Speci men Type: BLOOD SPECIMENOrdering Facility: [facility] Address: [address] [place] [address] Performed By: #### 5 8410-2 ####[facility]ATORYCLIA [id number] [place] [address] [place] WBC (Bld) [#/Vol] 6.70 10*3/uL Normal 3.70-11.00 [facility] Comment on above: Order Comment: Speci men Type: BLOOD SPECIMENOrdering Facility: [facility] Address: [address] [place] [address] Performed By: #### 5 8410-2 ####[facility]ATORYCLIA [id number] [address] [place] CNOVon 02-18-[address] [facility] CONSULT PROGon 02-18-[address] [facility] CT LUMBAR SPINE WO IVCONon 1 CT LUMBAR SPINE WO IVCON Normal [facility] Comprehensive metabolic 2000 panelon 02-18-2024 Albumin [Mass/Vol] 2.9 g/dL Low 3.2-5.0 [facility] Comment on above: Order Comment: Speci men Type: BLOOD SPECIMENOrdering Facility: [facility] Address: [address] [place] [address] Performed By: #### 2 4323-8 ####[facility]ATORYCLIA [id number] [address] [place] ALP [Catalytic activity/Vol] 140 U/L High 45-117 [facility] Comment on above: Order Comment: Speci men Type: BLOOD SPECIMENOrdering Facility: [facility] Address: [address] [place] [address] Performed By: #### 2 4323-8 ####[facility]ATORYCLIA [id number] [place] [address] [place] ALT [Catalytic activity/Vol] 12 U/L Low 13-61 [facility] Comment on above: Order Comment: Speci men Type: BLOOD SPECIMENOrdering Facility: [facility] Address: [address] [place] [address] Result Comment: Resu lts may be falsely depressed after the administration of Sulfasalazine and/or Sulfapyridine. Performed By: #### 2 4323-8 ####[facility]ATORYCLIA [id number] [address] [place] Anion gap [Moles/Vol] 5 mmol/L Normal 5-16 [facility] Comment on above: Order Comment: Speci men Type: BLOOD SPECIMENOrdering Facility: [facility] Address: [address] [place] [address] Performed By: #### 2 4323-8 ####[facility]ATORYCLIA [id number] [address] [place] AST [Catalytic activity/Vol] Normal [facility] Comment on above: Order Comment: Speci men Type: BLOOD SPECIMENOrdering Facility: [facility] Address: [address] [place] [address] Result Comment: Unab le to assay due to interference from hemolysis. Suggest reorder as clinically indicated.Results may be falsely depressed after the administration of Sulfasalazine and/or Sulfapyridine. Performed By: #### 2 4323-8 ####[facility]ATORYCLIA [id number] [place] [address] [place] Bilirubin [Mass/Vol] 0.2 mg/dL Normal 0.2-1.0 [facility] Comment on above: Order Comment: Speci men Type: BLOOD SPECIMENOrdering Facility: [facility] Address: [address] [place] [address] Performed By: #### 2 4323-8 ####[facility]ATORYCLIA [id number] [place] [address] [place] Calcium [Mass/Vol] 9.2 mg/dL Normal 8.5-10.5 [facility] Comment on above: Order Comment: Speci men Type: BLOOD SPECIMENOrdering Facility: [facility] Address: [address] [place] [address] Performed By: #### 2 4323-8 ####[facility]ATORYCLIA [id number] [place] [id number] [place] Chloride [Moles/Vol] 107 mmol/L Normal 98-107 [facility] Comment on above: Order Comment: Speci men Type: BLOOD SPECIMENOrdering Facility: [facility] Address: [address] [place] [address] Performed By: #### 2 4323-8 ####[facility]ATORYCLIA [id number] [place] [address] [place] CO2 [Moles/Vol] 26 mmol/L Normal 21-32 [facility] Comment on above: Order Comment: Speci men Type: BLOOD SPECIMENOrdering Facility: [facility] Address: [address] [place] [address] Performed By: #### 2 4323-8 ####[facility]ATORYCLIA [id number] [place] [address] [place] Creatinine [Mass/Vol] 0.57 mg/dL Normal 0.51-0.95 [facility] Comment on above: Order Comment: Speci men Type: BLOOD SPECIMENOrdering Facility: [facility] Address: [address] [place] [address] Result Comment: Ramila ents receiving either N-Acetylcysteine (NAC) or Metamizole prior to venipuncture, may have falsely depressed results. Performed By: #### 2 4323-8 ####[facility]ATORYCLIA [id number] [place] [address] [place] Creatinine and Glomerular filtration rate.predicted panel (S/P/Bld) 99 mL/min/1.73m??? Normal >=60 [facility] Comment on above: Order Comment: Speci men Type: BLOOD SPECIMENOrdering Facility: [facility] Address: [address] [place] [address] Result Comment: Julianne mated Glomerular Filtration Rate (eGFR) is calculated using the 2020 CKD-EPI creatinine equation. This equation utilizes serum creatinine, sex, and age as parameters. The creatinine assay has traceable calibration to isotope dilution-mass spectrometry. Refer to KDIGO guidelines for clinical interpretation. In patients with unstable renal function, e.g. those with acute kidney injury, the eGFR may not accurately reflect actual GFR. Performed By: #### 2 4323-8 ####[facility]ATORYCLIA [id number] [place] [address] [place] Glucose [Mass/Vol] 140 mg/dL High 70-100 [facility] Comment on above: Order Comment: Luis velez Type: BLOOD SPECIMENOrdering Facility: [facility] Address: [address] [place] [address] Result Comment: The [place] [employer] (ADA) provides guidance for cutoff values for fasting glucose and random glucose. The ADA defines fasting as no caloric intake for at least 8 hours. Fasting plasma glucose results between 100 to 125 mg/dL indicate increased risk for diabetes (prediabetes).Fasting plasma glucose results greater than or equal to 126 mg/dL meet the criteria for diagnosis of diabetes. In the absence of unequivocal hyperglycemia, results should be confirmed by repeat testing. In a patient with classic symptoms of hyperglycemia or hyperglycemic crisis, random plasma glucose results greater than or equal to 200 mg/dL meet the criteria for diagnosis of diabetes.Reference: Standards of Medical Care in Diabetes 2016, [place] [employer]. Diabetes Care. 2016.39(Suppl 1).Results may be falsely elevated after the administration of Sulfapyridine.Results may be falsely depressed after the administration of Sulfasalazine. Performed By: #### 2 4323-8 ####[facility]ATORYCLIA [id number] [place] [address] [place] Potassium [Moles/Vol] Normal [facility] Comment on above: Order Comment: Luis velez Type: BLOOD SPECIMENOrdering Facility: [facility] Address: [address] [place] [address] Result Comment: Unab le to assay due to interference from hemolysis. Suggest reorder as clinically indicated. &XA&Notified Verito on 5B Performed By: #### 2 4323-8 ####[facility]ATORYCLIA [id number] [place] [id number] [place] Protein [Mass/Vol] 6.3 g/dL Normal 6.0-8.5 [facility] Comment on above: Order Comment: Speci men Type: BLOOD SPECIMENOrdering Facility: [facility] Address: [address] [place] [address] Performed By: #### 2 4323-8 ####[facility]ATORYCLIA [id number] [place] [address] [place] Sodium [Moles/Vol] 138 mmol/L Normal 136-145 [facility] Comment on above: Order Comment: Speci men Type: BLOOD SPECIMENOrdering Facility: [facility] Address: [address] [place] [address] Performed By: #### 2 4323-8 ####[facility]ATORYCLIA [id number] [place] [address] [place] Urea nitrogen [Mass/Vol] 15 mg/dL Normal 7-26 [facility] Comment on above: Order Comment: Speci men Type: BLOOD SPECIMENOrdering Facility: [facility] Address: [address] [place] [address] Performed By: #### 2 4323-8 ####[facility]ATORYCLIA [id number] [place] [id number] [place] HISTORY PHYSICALon HISTORY PHYSICAL Normal [facility] POTASSIUMon 02-18-2024 Potassium [Moles/Vol] 3.9 mmol/L Normal 3.5-5.1 [facility] Comment on above: Order Comment: Speci men Type: BLOOD SPECIMENOrdering Facility: [facility] Address: [address] [place] [address] Performed By: #### 1 920-8, K1 ####[facility]ATORYCLIA [id number] [place] [id number] [place] CNPNon 02-17-[address] [facility] CNOVon 02-11-[address] [facility] XR LUMBAR 2V AP/LATon 2023 XR LUMBAR 2V AP/LAT Normal [facility] CNPNon 02-09-[address] [facility] CNPNon 02-05-[address] [facility] CNPNon 02-02-[address] [facility] CNPNon 01-27-[address] [facility] CNPNon 01-25-[address] [facility] CASE MANAGEMon 01-22-[address] [facility] CASE MANAGEM Normal [facility] CBC panel Auto (Bld)on 01-21 Erythrocyte distribution width (RBC) [Ratio] 14.2 % Normal 11.5-15.0 [facility] Comment on above: Order Comment: Speci men Type: BLOOD SPECIMENOrdering Facility: [facility] Address: [address] [place] [address] Performed By: #### 5 8410-2 ####[facility]ORATORYCLIA [id number] [place] [address] [place] Hematocrit (Bld) [Volume fraction] 35.3 % Low 36.0-46.0 [facility] Comment on above: Order Comment: Speci men Type: BLOOD SPECIMENOrdering Facility: [facility] Address: [address] [place] [address] Performed By: #### 5 8410-2 ####[facility]ATORYCLIA [id number] [place] [address] [place] Hemoglobin (Bld) [Mass/Vol] 11.4 g/dL Low 11.5-15.5 [facility] Comment on above: Order Comment: Speci men Type: BLOOD SPECIMENOrdering Facility: [facility] Address: [facility] [place] [address] Performed By: #### 5 8410-2 ####[facility]ATORYCLIA [id number] [place] [address] [place] MCH (RBC) [Entitic mass] 31.1 pg Normal 26.0-34.0 [facility] Comment on above: Order Comment: Speci men Type: BLOOD SPECIMENOrdering Facility: [facility] Address: [address] [place] [address] Performed By: #### 5 8410-2 ####[facility]ATORYCLIA [id number] [address] OF [facility] MCHC (RBC) [Mass/Vol] 32.3 g/dL Normal 30.5-36.0 [facility] Comment on above: Order Comment: Speci men Type: BLOOD SPECIMENOrdering Facility: [facility] Address: [address] [place] [address] Performed By: #### 5 8410-2 ####[facility]ATORYCLIA [id number] [place] [address] [place] MCV (RBC) [Entitic vol] 96.2 fL Normal 80.0-100.0 [facility] Comment on above: Order Comment: Speci men Type: BLOOD SPECIMENOrdering Facility: [facility] Address: [address] [place] [address] Performed By: #### 5 8410-2 ####[facility]ATORYCLIA [id number] [place] [address] [place] Nucleated RBC (Bld) [#/Vol] 10*3/uL Normal <0.01 [facility] Comment on above: Order Comment: Speci men Type: BLOOD SPECIMENOrdering Facility: [facility] Address: [address] [place] [address] Performed By: #### 5 8410-2 ####[facility]ATORYCLIA [id number] [address] [place] Platelet mean volume (Bld) [Entitic vol] 10.3 fL Normal 9.0-12.7 [facility] Comment on above: Order Comment: Speci men Type: BLOOD SPECIMENOrdering Facility: [facility] Address: [address] [place] [address] Performed By: #### 5 8410-2 ####[facility]ATORYCLIA [id number] [place] [id number] [facility] [place] Platelets (Bld) [#/Vol] 159 10*3/uL Normal 150-400 [facility] Comment on above: Order Comment: Speci men Type: BLOOD SPECIMENOrdering Facility: [facility] Address: [address] [place] [address] Performed By: #### 5 8410-2 ####[facility]ATORYCLIA [id number] [place] [id number] [place] RBC (Bld) [#/Vol] 3.67 10*6/uL Low 3.90-5.20 [facility] Comment on above: Order Comment: Speci men Type: BLOOD SPECIMENOrdering Facility: [facility] Address: [address] [place] [address] Performed By: #### 5 8410-2 ####[facility]ATORYCLIA [id number] [address] WBC (Bld) [#/Vol] 10.43 10*3/uL Normal 3.70-11.00 [facility] Comment on above: Order Comment: Speci men Type: BLOOD SPECIMENOrdering Facility: [facility] Address: [address] [place] [address] Performed By: #### 5 8410-2 ####[facility]ATORYCLIA [id number] [place] [id number] [facility] [place] CNDSon 01-22-[address] [facility] Comprehensive metabolic 2000 panelon 01-22-2024 Albumin [Mass/Vol] 2.8 g/dL Low 3.2-5.0 [facility] Comment on above: Order Comment: Speci men Type: BLOOD SPECIMENOrdering Facility: [facility] Address: [address] [place] [address] Performed By: #### 2 4323-8, 35096-7, HSTROP ####[facility]ATORYCLIA [id number] [place] [id number] [facility] [place] ALP [Catalytic activity/Vol] 91 U/L Normal 45-117 [facility] Comment on above: Order Comment: Speci men Type: BLOOD SPECIMENOrdering Facility: [facility] Address: [address] [place] [address] Performed By: #### 2 4323-8, , HSTROP ####[facility]ATORYCLIA [id number] [place] [id number] [place] ALT [Catalytic activity/Vol] 8 U/L Low 13-61 [facility] Comment on above: Order Comment: Speci men Type: BLOOD SPECIMENOrdering Facility: [facility] Address: [address] [place] [address] Result Comment: Resu lts may be falsely depressed after the administration of Sulfasalazine and/or Sulfapyridine. Performed By: #### 2 4323-8, , HSTROP ####[facility]ATORYCLIA [id number] [address] [place] Anion gap [Moles/Vol] 7 mmol/L Normal 5-16 [facility] Comment on above: Order Comment: Speci men Type: BLOOD SPECIMENOrdering Facility: [facility] Address: [address] [place] [address] Performed By: #### 2 4323-8, , HSTROP ####[facility]ORATORYCLIA [id number] [place] [address] [place] AST [Catalytic activity/Vol] 15 U/L Normal 8-34 [facility] Comment on above: Order Comment: Speci men Type: BLOOD SPECIMENOrdering Facility: [facility] Address: [address] [place] [address] Result Comment: Resu lts may be falsely depressed after the administration of Sulfasalazine and/or Sulfapyridine. Performed By: #### 2 4323-8, , HSTROP ####[facility]ATORYCLIA [id number] [place] [id number] [place] Bilirubin [Mass/Vol] 0.5 mg/dL Normal 0.2-1.0 [facility] Comment on above: Order Comment: Speci men Type: BLOOD SPECIMENOrdering Facility: [facility] Address: [address] [facility] [place] [id number] Performed By: #### 2 4323-8, , HSTROP ####[facility]ORATORYCLIA [id number] [place] [id number] [place] Calcium [Mass/Vol] 10.1 mg/dL Normal 8.5-10.5 [facility] Comment on above: Order Comment: Speci men Type: BLOOD SPECIMENOrdering Facility: [facility] Address: [address] [place] [address] Performed By: #### 2 4323-8, , HSTROP ####[facility]ORATORYCLIA [id number] [place] [id number] [place] Chloride [Moles/Vol] 101 mmol/L Normal 98-107 [facility] Comment on above: Order Comment: Speci men Type: BLOOD SPECIMENOrdering Facility: [facility] Address: [address] [place] [address] Performed By: #### 2 4323-8, , HSTROP ####[facility]ATORYCLIA [id number] [place] [id number] [place] CO2 [Moles/Vol] 25 mmol/L Normal 21-32 [facility] Comment on above: Order Comment: Speci men Type: BLOOD SPECIMENOrdering Facility: [facility] Address: [address] [place] [address] Performed By: #### 2 4323-8, , HSTROP ####[facility]ORATORYCLIA [id number] [place] [id number] [place] Creatinine [Mass/Vol] 0.97 mg/dL High 0.51-0.95 [facility] Comment on above: Order Comment: Speci men Type: BLOOD SPECIMENOrdering Facility: [facility] Address: [address] [place] [address] Result Comment: Ramila ents receiving either N-Acetylcysteine (NAC) or Metamizole prior to venipuncture, may have falsely depressed results. Performed By: #### 2 4323-8, 40322-8, HSTROP ####[facility]ATORYCLIA [id number] [place] [id number] [place] Creatinine and Glomerular filtration rate.predicted panel (S/P/Bld) 63 mL/min/1.73m??? Normal >=60 [facility] Comment on above: Order Comment: Speci men Type: BLOOD SPECIMENOrdering Facility: [facility] [facility] Address: [address] [place] [address] Result Comment: Julianne mated Glomerular Filtration Rate (eGFR) is calculated using the 2020 CKD-EPI creatinine equation. This equation utilizes serum creatinine, sex, and age as parameters. The creatinine assay has traceable calibration to isotope dilution-mass spectrometry. Refer to KDIGO guidelines for clinical interpretation. In patients with unstable renal function, e.g. those with acute kidney injury, the eGFR may not accurately reflect actual GFR. Performed By: #### 2 4323-8, 01579-1, HSTROP ####[facility]ORATORYCLIA [id number] [place] [id number] [place] Glucose [Mass/Vol] 300 mg/dL High 70-100 [facility] Comment on above: Order Comment: Luis velez Type: BLOOD SPECIMENOrdering Facility: [facility] Address: [address] [place] [address] Result Comment: The [place] Diabetes Association (ADA) provides guidance for cutoff values for fasting glucose and random glucose. The ADA defines fasting as no caloric intake for at least 8 hours. Fasting plasma glucose results between 100 to 125 mg/dL indicate increased risk for diabetes (prediabetes).Fasting plasma glucose results greater than or equal to 126 mg/dL meet the criteria for diagnosis of diabetes. In the absence of unequivocal hyperglycemia, results should be confirmed by repeat testing. In a patient with classic symptoms of hyperglycemia or hyperglycemic crisis, random plasma glucose results greater than or equal to 200 mg/dL meet the criteria for diagnosis of diabetes.Reference: Standards of Medical Care in Diabetes 2016, [place] Diabetes Association. Diabetes Care. 2016.39(Suppl 1).Results may be falsely elevated after the administration of Sulfapyridine.Results may be falsely depressed after the administration of Sulfasalazine. Performed By: #### 2 4323-8, , HSTROP ####[facility]ATORYCLIA [id number] [place] [id number] [place] Potassium [Moles/Vol] 4.5 mmol/L Normal 3.5-5.1 [facility] Comment on above: Order Comment: Speci men Type: BLOOD SPECIMENOrdering Facility: [facility] Address: [address] [place] [address] Performed By: #### 2 4323-8, , HSTROP ####[facility]ATORYCLIA [id number] [place] [id number] [place] Protein [Mass/Vol] 5.6 g/dL Low 6.0-8.5 [facility] Comment on above: Order Comment: Speci men Type: BLOOD SPECIMENOrdering Facility: [facility] Address: [address] [place], [place] [address] Performed By: #### 2 4323-8, , HSTROP ####[facility]ATORYCLIA [id number] [place] [id number] [place] Sodium [Moles/Vol] 133 mmol/L Low 136-145 [facility] Comment on above: Order Comment: Speci men Type: BLOOD SPECIMENOrdering Facility: [facility] Address: [address] [place] [address] Performed By: #### 2 4323-8, , HSTROP ####[facility]ATORYCLIA [id number] [place] [id number] [place] Urea nitrogen [Mass/Vol] 35 mg/dL High 7-26 [facility] Comment on above: Order Comment: Speci men Type: BLOOD SPECIMENOrdering Facility: [facility] Address: [address] [place] [address] Performed By: #### 2 4323-8, , HSTROP ####[facility]ATORYCLIA [id number] [place] [address] [place] HIGH SENSITIVITY TROPONIN Io n 01-22-2024 Tropinin I.cardiac panel High sensitivity method 6.2 pg/mL Normal 0.0-34.0 [facility] Comment on above: Order Comment: Speci men Type: BLOOD SPECIMENOrdering Facility: [facility] Address: [address] [place] [address] Performed By: #### 2 4323-8, , HSTROP ####[facility]ORYCLIA [id number] [place] [id number] [place] Magnesium SerPl-mCncon 01-21 Magnesium [Mass/Vol] 1.7 mg/dL Normal 1.6-2.6 [facility] Comment on above: Order Comment: Speci men Type: BLOOD SPECIMENOrdering Facility: [facility] Address: [address] [place] [address] Performed By: #### 2 4323-8, , HSTROP ####[facility]ATORYCLIA [id number] [place] [id number] [facility] [place] THERAPY NTon 01-22-2024 THERAPY NT [facility] THERAPY NT Normal [facility] ALLIED HEALTHon 01-21-[address] [facility] ALLIED HEALTH Normal [facility] CASE MGT INIT ASSESon 2023 CASE MGT INIT [facility] HIGH SENSITIVITY TROPONIN Io n 01-21-2024 Tropinin I.cardiac panel High sensitivity method 5.7 pg/mL Normal 0.0-34.0 [facility] Comment on above: Order Comment: Speci men Type: BLOOD SPECIMENOrdering Facility: [facility] Address: [address] [place] [address] Performed By: #### H STROP ####[facility]ORYCLIA [id number] [place] [id number] [place] THERAPY NTon 09-26-[address] [facility] THERAPY NT Normal [facility] XR LUMBAR 2V AP/LATon 2023 XR LUMBAR 2V AP/LAT Normal [facility] XR THORACIC 2V AP/LATon 12-27 XR THORACIC 2V AP/LAT Normal [facility] ANES POSTPROC EVALon [address] [facility] ANES PRE-OPon 01-20-2024 ANES PRE-OP Normal [facility] BRIEF OP NOTon 01-20-[address] [facility] CONSULTon 01-20-[address] [facility] CREATININE BLDon 01-20-2024 Creatinine [Mass/Vol] 0.68 mg/dL Normal 0.51-0.95 [facility] Comment on above: Order Comment: Speci men Type: BLOOD SPECIMENOrdering Facility: [facility] Address: [address] [place] [address] Result Comment: Ramila ents receiving either N-Acetylcysteine (NAC) or Metamizole prior to venipuncture, may have falsely depressed results. Performed By: #### C RET1 ####[facility]ATORYCLIA [id number] [place] [address] [place] [facility] Creatinine and Glomerular filtration rate.predicted panel (S/P/Bld) 94 mL/min/1.73m??? Normal >=60 [facility] Comment on above: Order Comment: Speci men Type: BLOOD SPECIMENOrdering Facility: [facility] Address: [address] [place] [address] Result Comment: Julianne mated Glomerular Filtration Rate (eGFR) is calculated using the 2020 CKD-EPI creatinine equation. This equation utilizes serum creatinine, sex, and age as parameters. The creatinine assay has traceable calibration to isotope dilution-mass spectrometry. Refer to KDIGO guidelines for clinical interpretation. In patients with unstable renal function, e.g. those with acute kidney injury, the eGFR may not accurately reflect actual GFR. Performed By: #### C RET1 ####[facility]ATORYCLIA [id number] [place] [address] [place] ECG COMPLETEon 01-20-[address] [facility] HISTORY PHYSICALon HISTORY PHYSICAL Normal [facility] OPERATIVE NOon 01-20-[address] [facility] XR VERIFY LEVEL M-BMOKO-QUrz 01-20-2024 XR VERIFY LEVEL L-SPINE-NB Normal [facility] CNPNon 01-07-[address] [facility] Basic metabolic 2000 panelon 01-05-2024 Anion gap [Moles/Vol] 4 mmol/L Low 5 - 16 mmol/L [facility] Calcium [Mass/Vol] 10.4 mg/dL 8.5 - 10. 5 mg/dL [facility] Chloride [Moles/Vol] 107 mmol/L 98 - 10 7 mmol/L [facility] CO2 [Moles/Vol] 27 mmol/L 21 - 32 mmol/L [facility] Creatinine [Mass/Vol] 0.72 mg/dL 0.51 - 0.95 mg/dL [facility] Comment on above: Patients receiving e ither N-Acetylcysteine (NAC) or Metamizole prior to venipuncture, may have falsely depressed results. GFR/1.73 sq M.predicted among non-blacks MDRD (S/P/Bld) [Vol rate/Area] 91 mL/min/{1.73_m2} - PINF [facility] Comment on above: Estimated Glomerular Filtration Rate (eGFR) is calculated using the 2020 CKD-EPI creatinine equation. This equation utilizes serum creatinine, sex, and age as parameters. The creatinine assay has traceable calibration to isotope dilution-mass spectrometry. Refer to KDIGO guidelines for clinical interpretation. In patients with unstable renal function, e.g. those with acute kidney injury, the eGFR may not accurately reflect actual GFR. Glucose [Mass/Vol] 197 mg/dL High 70 - 100 mg/dL [facility] Comment on above: The [place] Diab[employer] s Association (ADA) provides guidance for cutoff values for fasting glucose and random glucose. The ADA defines fasting as no caloric intake for at least 8 hours. Fasting plasma glucose results between 100 to 125 mg/dL indicate increased risk for diabetes (prediabetes). Fasting plasma glucose results greater than or equal to 126 mg/dL meet the criteria for diagnosis of diabetes. In the absence of unequivocal hyperglycemia, results should be confirmed by repeat testing. In a patient with classic symptoms of hyperglycemia or hyperglycemic crisis, random plasma glucose results greater than or equal to 200 mg/dL meet the criteria for diagnosis of diabetes. Reference: Standards of Medical Care in Diabetes 2016, [place] Diabetes Association. Diabetes Care. 2016.39(Suppl 1). Results may be falsely elevated after the administration of Sulfapyridine. Results may be falsely depressed after the administration of Sulfasalazine. Interpretation and review of laboratory results Abnormal [facility] Potassium [Moles/Vol] 3.8 mmol/L 3.5 - 5.1 mmol/L [facility] Sodium [Moles/Vol] 138 mmol/L 136 - 145 mmol/L [facility] Urea nitrogen [Mass/Vol] 21 mg/dL 7 - 26 mg/dL [facility] Anion gap [Moles/Vol] 4 mmol/L Low 5-16 [facility] Comment on above: Order Comment: Luis velez Type: BLOOD SPECIMENOrdering Facility: [facility] Address: [address] [place] [address] Performed By: #### 2 4321-2, 2276-4, 59667-4 ####[facility]ATORYCLIA [id number] [place] [address] [place] Calcium [Mass/Vol] 10.4 mg/dL Normal 8.5-10.5 [facility] Comment on above: Order Comment: Luis velez Type: BLOOD SPECIMENOrdering Facility: [facility] Address: [address] [place] [address] Performed By: #### 2 4321-2, 2276-4, 49970-7 ####[facility]ATORYCLIA [id number] [place] [id number] [place] Chloride [Moles/Vol] 107 mmol/L Normal 98-107 [facility] Comment on above: Order Comment: Luis velez Type: BLOOD SPECIMENOrdering Facility: [facility] Address: [address] [place] [address] Performed By: #### 2 4321-2, 2276-4, 90826-6 ####[facility]ORYCLIA [id number] [place] [id number] [place] CO2 [Moles/Vol] 27 mmol/L Normal 21-32 [facility] Comment on above: Order Comment: Speci men Type: BLOOD SPECIMENOrdering Facility: [facility] Address: [address] [place] [address] Performed By: #### 2 4321-2, 2276-4, 17982-8 ####[facility]ORYCLIA [id number] [place] [id number] [place] Creatinine [Mass/Vol] 0.72 mg/dL Normal 0.51-0.95 [facility] Comment on above: Order Comment: Speci men Type: BLOOD SPECIMENOrdering Facility: [facility] Address: [address] [place] [address] Result Comment: Ramila ents receiving either N-Acetylcysteine (NAC) or Metamizole prior to venipuncture, may have falsely depressed results. Performed By: #### 2 4321-2, 2276-4, 25170-4 ####[facility]ATORYCLIA [id number] [address] Creatinine and Glomerular filtration rate.predicted panel (S/P/Bld) 91 mL/min/1.73m??? Normal >=60 [facility] Comment on above: Order Comment: Marii rosie Type: BLOOD SPECIMENOrdering Facility: [facility] Address: [address] [place] [address] Result Comment: Julianne mated Glomerular Filtration Rate (eGFR) is calculated using the 2020 CKD-EPI creatinine equation. This equation utilizes serum creatinine, sex, and age as parameters. The creatinine assay has traceable calibration to isotope dilution-mass spectrometry. Refer to KDIGO guidelines for clinical interpretation. In patients with unstable renal function, e.g. those with acute kidney injury, the eGFR may not accurately reflect actual GFR. Performed By: #### 2 4321-2, 2276-4, 91912-5 ####[facility]ORYCLIA [id number] [place] [id number] [place] Glucose [Mass/Vol] 197 mg/dL High 70-100 [facility] Comment on above: Order Comment: Marii men Type: BLOOD SPECIMENOrdering Facility: [facility] Address: [address] [place] [address] Result Comment: The [place] Diabetes Association (ADA) provides guidance for cutoff values for fasting glucose and random glucose. The ADA defines fasting as no caloric intake for at least 8 hours. Fasting plasma glucose results between 100 to 125 mg/dL indicate increased risk for diabetes (prediabetes).Fasting plasma glucose results greater than or equal to 126 mg/dL meet the criteria for diagnosis of diabetes. In the absence of unequivocal hyperglycemia, results should be confirmed by repeat testing. In a patient with classic symptoms of hyperglycemia or hyperglycemic crisis, random plasma glucose results greater than or equal to 200 mg/dL meet the criteria for diagnosis of diabetes.Reference: Standards of Medical Care in Diabetes 2016, [place] Diabetes Association. Diabetes Care. 2016.39(Suppl 1).Results may be falsely elevated after the administration of Sulfapyridine.Results may be falsely depressed after the administration of Sulfasalazine. Performed By: #### 2 4321-2, 2276-4, 76570-5 ####[facility]ATORYCLIA [id number] [place] [address] [place] Potassium [Moles/Vol] 3.8 mmol/L Normal 3.5-5.1 [facility] Comment on above: Order Comment: Luis velez Type: BLOOD SPECIMENOrdering Facility: [facility] Address: [address] [place] [address] Performed By: #### 2 4321-2, 2276-4, 37227-0 ####[facility]ATORYCLIA [id number] [place] [address] [place] Sodium [Moles/Vol] 138 mmol/L Normal 136-145 [facility] Comment on above: Order Comment: Marii men Type: BLOOD SPECIMENOrdering Facility: [facility] Address: [address] [place] [address] Performed By: #### 2 4321-2, 2276-4, 13775-7 ####[facility]ATORYCLIA [id number] [place] [id number] [place] Urea nitrogen [Mass/Vol] 21 mg/dL Normal 7-26 [facility] Comment on above: Order Comment: Speci men Type: BLOOD SPECIMENOrdering Facility: [facility] Address: [address] [place] [id number] Performed By: #### 2 4321-2, 2276-4, 20155-5 ####[facility]ATORYCLIA [id number] [address] OF [facility] CBC panel Auto (Bld)on 01-04 Erythrocyte distribution width (RBC) [Ratio] 14.0 % 11.5 - 15.0 % [facility] Hematocrit (Bld) [Volume fraction] 40.0 % 36.0 - 46.0 % [facility] Hemoglobin (Bld) [Mass/Vol] 12.9 g/dL 11.5 - 15.5 g/dL [facility] Interpretation and review of laboratory results Normal [facility] MCH (RBC) [Entitic mass] 31.3 pg 26.0 - 34.0 pg [facility] MCHC (RBC) [Mass/Vol] 32.3 g/dL 30.5 - 36.0 g/dL [facility] MCV (RBC) [Entitic vol] 97.1 fL 80.0 - 100.0 fL [facility] Nucleated RBC (Bld) [#/Vol] NINF [facility] Platelet mean volume (Bld) [Entitic vol] 9.8 fL 9.0 - 12.7 fL [facility] Platelets (Bld) [#/Vol] 171 10*3/uL [facility] RBC (Bld) [#/Vol] 4.12 10*6/uL 3.90 - 5.2 0 m/uL [facility] WBC (Bld) [#/Vol] 7.69 10*3/uL [facility] Erythrocyte distribution width (RBC) [Ratio] 14.0 % Normal 11.5-15.0 [facility] Comment on above: Order Comment: Speci men Type: BLOOD SPECIMENOrdering Facility: [facility] Address: [address] [place] [address] Performed By: #### 5 8410-2 ####[facility]ATORYCLIA [id number] [address] [place] Hematocrit (Bld) [Volume fraction] 40.0 % Normal 36.0-46.0 [facility] Comment on above: Order Comment: Speci men Type: BLOOD SPECIMENOrdering Facility: [facility] Address: [address] [place] [address] Performed By: #### 5 8410-2 ####[facility]ATORYCLIA [id number] [place] [address] [place] Hemoglobin (Bld) [Mass/Vol] 12.9 g/dL Normal 11.5-15.5 [facility] Comment on above: Order Comment: Speci men Type: BLOOD SPECIMENOrdering Facility: [facility] Address: [address] [place] [address] Performed By: #### 5 8410-2 ####[facility]ATORYCLIA [id number] [address] [place] MCH (RBC) [Entitic mass] 31.3 pg Normal 26.0-34.0 [facility] Comment on above: Order Comment: Speci men Type: BLOOD SPECIMENOrdering Facility: [facility] Address: [address] [place] [address] Performed By: #### 5 8410-2 ####[facility]ATORYCLIA [id number] [place] [address] [place] MCHC (RBC) [Mass/Vol] 32.3 g/dL Normal 30.5-36.0 [facility] Comment on above: Order Comment: Speci men Type: BLOOD SPECIMENOrdering Facility: [facility] Address: [address] [place] [address] Performed By: #### 5 8410-2 ####[facility]ATORYCLIA [id number] [place] [address] [place] MCV (RBC) [Entitic vol] 97.1 fL Normal 80.0-100.0 [facility] Comment on above: Order Comment: Speci men Type: BLOOD SPECIMENOrdering Facility: [facility] Address: [address] [place] [address] Performed By: #### 5 8410-2 ####[facility]ATORYCLIA [id number] [place] [id number] [place] Nucleated RBC (Bld) [#/Vol] 10*3/uL Normal <0.01 [facility] Comment on above: Order Comment: Speci men Type: BLOOD SPECIMENOrdering Facility: [facility] Address: [address] [place] [address] Performed By: #### 5 8410-2 ####[facility]ATORYCLIA [id number] [place] [address] [place] Platelet mean volume (Bld) [Entitic vol] 9.8 fL Normal 9.0-12.7 [facility] Comment on above: Order Comment: Speci men Type: BLOOD SPECIMENOrdering Facility: [facility] Address: [address] [place] [address] Performed By: #### 5 8410-2 ####[facility]ATORYCLIA [id number] [place] [address] [place] Platelets (Bld) [#/Vol] 171 10*3/uL Normal 150-400 [facility] Comment on above: Order Comment: Speci men Type: BLOOD SPECIMENOrdering Facility: [facility] Address: [address] [place] [address] Performed By: #### 5 8410-2 ####[facility]ATORYCLIA [id number] [place] [address] [place] RBC (Bld) [#/Vol] 4.12 10*6/uL Normal 3.90-5.20 [facility] Comment on above: Order Comment: Speci men Type: BLOOD SPECIMENOrdering Facility: [facility] Address: [address] [place] [address] Performed By: #### 5 8410-2 ####[facility]ORATORYCLIA [id number] [place] [id number] [place] WBC (Bld) [#/Vol] 7.69 10*3/uL Normal 3.70-11.00 [facility] Comment on above: Order Comment: Speci men Type: BLOOD SPECIMENOrdering Facility: [facility] Address: [address] [place] [address] Performed By: #### 5 8410-2 ####[facility]ATORYCLIA [id number] [place] [id number] [place] CNPNon 01-05-[address] [facility] FERRITINon 01-05-2024 Ferritin [Mass/Vol] 46.3 ng/mL 8.0 - 30 7.0 ng/mL [facility] Ferritin SerPl-mCncon 2023 Ferritin [Mass/Vol] 46.3 ng/mL Normal 8.0-307.0 [facility] Comment on above: Order Comment: Speci men Type: BLOOD SPECIMENOrdering Facility: [facility] Address: [address] [place] [address] Performed By: #### 2 4321-2, 2276-4, 08986-8 ####[facility]ORATORYCLIA [id number] [place] [address] [place] Ferritin [Mass/Vol]on 2023 Interpretation and review of laboratory results Normal [facility] HbA1c (Bld)on 01-05-2024 Average glucose Estimated from glycated hemoglobin (Bld) [Mass/Vol] 148 mg/dL Normal [facility] Comment on above: Order Comment: Speci men Type: BLOOD SPECIMENOrdering Facility: [facility] Address: [address] [place] [address] Result Comment: eAG: (Estimated average glucose) is a calculated value from HgbA1c and is airport representative of the average blood glucose level in the last 2-3 month period. Performed By: #### 5 5454-3 ####[facility] LABCLIA [id number] [address] [place] HbA1c (Bld) [Mass fraction] 6.8 % High 4.3-5.6 [facility] Comment on above: Order Comment: Speci men Type: BLOOD SPECIMENOrdering Facility: [facility] Address: [address] [place] [address] Result Comment: [place] Diabetes Association guidelines indicate that patients with HgbA1c in the range 5.7-6.4% are at increased risk for development of diabetes, and intervention by lifestyle modification may be beneficial. HgbA1c greater or equal to 6.5% is considered diagnostic of diabetes. Performed By: #### 5 5454-3 ####[facility] LABCLIA [id number] [place] [id number] [place] Iron and Iron binding capaci ty panelon 01-05-2024 Interpretation and review of laboratory results Abnormal [facility] Iron [Mass/Vol] 68 ug/dL 50 - 170 ug/dL [facility] Comment on above: Patients treated wit h metal-binding drugs (e.g.deferoxamine) may have depressed iron values, as chelated iron may not properly react in the Siemens iron assay. Iron binding capacity [Mass/Vol] 347 ug/dL 221 - 481 ug/dL [facility] Iron/TIBC [Molar ratio] 19.6 % Low 22.0 - 44.0 % [facility] Iron [Mass/Vol] 68 ug/dL Normal 50-170 [facility] Comment on above: Order Comment: Luis velez Type: BLOOD SPECIMENOrdering Facility: [facility] Address: [address] [place] [address] Result Comment: Ramila ents treated with metal-binding drugs (e.g.deferoxamine) may have depressed iron values, as chelated iron may not properly react in the Siemens iron assay. Performed By: #### 2 4321-2, 2276-4, 01905-0 ####[facility] LABORATORYCLIA [id number] [place] [address] [place] Iron binding capacity [Mass/Vol] 347 ug/dL Normal 221-481 [facility] Comment on above: Order Comment: Luis velez Type: BLOOD SPECIMENOrdering Facility: [facility] Address: [address] [place] [address] Performed By: #### 2 4321-2, 2276-4, 64388-8 ####[facility] LABORATORYCLIA [id number] [place] [address] [place] Iron/TIBC [Molar ratio] 19.6 % Low 22.0-44.0 [facility] Comment on above: Order Comment: Speci men Type: BLOOD SPECIMENOrdering Facility: [facility] Address: [address] [place] [address] Performed By: #### 2 4321-2, 2276-4, 27773-0 ####[facility] LABORATORYCLIA [id number] [place] [id number] [place] NT PRO BNPon 01-05-2024 Natriuretic peptide.B prohormone N-Terminal [Mass/Vol] 400 pg/mL High NINF - 125 pg/mL [facility] Comment on above: NT-proBNP results of less than 300 pg/mL likely rules out acute congestive heart failure with 99% predictive value. NOTE: These cutoff points are suggested for ACUTE CHF DIAGNOSIS only Less than 50 years Greater than 450 pg/mL 50 - 75 years Greater than 900 pg/mL Greater than 75 years Greater than 1800 pg/mL NT-proBNP SerPl-mCncon 01-04 Natriuretic peptide.B prohormone N-Terminal [Mass/Vol] 400 pg/mL High <125 [facility] Comment on above: Order Comment: Speci men Type: BLOOD SPECIMENOrdering Facility: [facility] Address: [address] [place] [address] Result Comment: NT-p roBNP results of less than 300 pg/mL likely rules out acute congestive heart failure with 99% predictive value.NOTE: These cutoff points are suggested for ACUTE CHF DIAGNOSIS onlyLess than 50 years\X09\ Greater than 450 pg/mL50 - 75 years\X09\\X09\ Greater than 900 pg/mLGreater than 75 years\X09\ Greater than 1800 pg/mL Performed By: #### 3 3762-6 ####[facility] LABORATORYCLIA [id number] [place] [id number] [place] Natriuretic peptide.B prohor kashmir N-Terminal [Mass/Vol]on 01-05-2024 Interpretation and review of laboratory results Abnormal [facility] No Panel Informationon 01-04 [facility] PT panel Coag (PPP)on 2023 INR Coag (PPP) [Relative time] 1.0 {INR} 0.9 - 1.3 [facility] Comment on above: Vitamin K Antagonist (VKA) Therapeutic Range: INR 2 to 3 (Target INR of 2.5) Note: For patients treated with VKA drugs, such as warfarin, the [place] [employer] 2012 Guideline recommends a therapeutic INR range of 2 to 3 (target INR of 2.5). This recommendation includes high-risk patients with antiphospholipid syndrome with previous arterial or venous thromboembolism, current-generation mechanical or bioprosthetic aortic heart valve replacement. Note: Patients with mechanical aortic valve replacement and additional risk factors for thromboembolic events (atrial fibrillation, previous thromboembolism, LV dysfunction, hypercoagulable conditions) or an older generation mechanical AVR (i.e., ball in-Cage) or any mechanical MVR should have a INR therapeutic range of 2.5 to 3.5 (target INR of 3). Grant GH, et al. Chest 2012, 141:7S-47S Ashley RA, et al. [facility] 2017, 70: 252-289 Interpretation and review of laboratory results Normal [facility] PT Coag (PPP) [Time] 11.0 s [facility] INR Coag (PPP) [Relative time] 1.0 {INR} Normal 0.9-1.3 [facility] Comment on above: Order Comment: Speci men Type: BLOOD SPECIMENOrdering Facility: [facility] Address: [address] [place] [address] Result Comment: Debbie min K Antagonist (VKA) Therapeutic Range: INR 2 to 3 (Target INR of 2.5)Note: For patients treated with VKA drugs, such as warfarin, the [place] [employer] 2012 Guideline recommends a therapeutic INR range of 2 to 3 (target INR of 2.5). This recommendation includes high-risk patients with antiphospholipid syndrome with previous arterial or venous thromboembolism, current-generation mechanical or bioprosthetic aortic heart valve replacement.Note: Patients with mechanical aortic valve replacement and additional risk factors for thromboembolic events (atrial fibrillation, previous thromboembolism, LV dysfunction, hypercoagulable conditions) or an older generation mechanical AVR (i.e., ball in-Cage) or any mechanical MVR should have a INR therapeutic range of 2.5 to 3.5 (target INR of 3).Grant GH, et al. Chest 2012, 141:7S-47SNishimura RA, et al. [facility] 2017, 70: 252-289 Performed By: #### 3 4528-0 ####[facility] LABORATORYCLIA [id number] [place] [id number] [place] PT Coag (PPP) [Time] 11.0 s Normal 9.7-13.0 [facility] Comment on above: Order Comment: Speci men Type: BLOOD SPECIMENOrdering Facility: [facility] Address: [address] [place] [address] Performed By: #### 3 4528-0 ####[facility] LABORATORYCLIA [id number] [address] STAPHYLOCOCCUS AUREUS AND MR SA SCREEN, PCR, NASALon 01-05-2024 S. aureus and MRSA panel VENANCIO+probe (Nose) Methicillin-RESISTANT Staphylococcus aureus (MRSA) Detected Abnormal Not Detected [facility] Comment on above: Order Comment: Speci men Type: SWABOrdering Facility: [facility] Address: [address] [place] [address] Performed By: #### S APCR ####[facility] LABORATORYCLIA [id number] [address] TYPE AND SCREEN,30 DAYon ABO group Nom (Bld) AB [facility] Blood group antibody screen Ql Negative [facility] HIstorical Ab Scr Status Negative [facility] Rh Nom (Bld) Positive [facility] ABO AB Normal [facility] Comment on above: Order Comment: Speci men Type: BLOOD SPECIMENOrdering Facility: [facility] Address: [address] [place] [address] Performed By: #### T SCR30 ####[facility] BLOOD BANKCLIA [id number] [address] OF [facility] HISTORICAL AB SCR STATUS Negative Normal [facility] Comment on above: Order Comment: Speci men Type: BLOOD SPECIMENOrdering Facility: [facility] Address: [address] [place] [address] Performed By: #### T SCR30 ####[facility] BLOOD BANKCLIA [id number] [address] OF [place] Rh Nom (Bld) Positive Normal [facility] Comment on above: Order Comment: Speci men Type: BLOOD SPECIMENOrdering Facility: [facility] Address: [address] [place], [place] [address] [address] Performed By: #### T SCR30 ####[facility] BLOOD BANKCLIA [id number] [address] OF [facility] CNCOon 01-04-2024 CNCO Letter Text [facility] CNPNon 12-30-2023 CNPN [facility] CNCOon 12-29-2023 CNCO Letter Text [facility] CNOVon 12-29-2023 CNOV Normal [facility] CNCOon 12-17-2023 CNCO Letter Text Normal [facility] CNOVon 12-17-[address] [facility] CNOVon 12-08-2023 CNOV Normal [facility] CT LUMBAR SPINE WO IVCONon 0 12-04-2023 CT LUMBAR SPINE WO IVCON Normal [facility] CT THORACIC SPINE WO IVCONon 12-04-2023 CT THORACIC SPINE WO IVCON Normal [facility] CNCOon 12-02-2023 CNCO Letter Text Normal [facility] CNPNon 11-30-2023 CNPN [facility] CNOVon 11-27-2023 CNOV Office Visit (SPSLUH ) ----- ELO GRAY ([id number]) 1955 F Date Time Provider Department 11/27/23 3:00 PM JARRED DUARTE During your visit today, we recorded the following information about you: Weight Height 72.6 kg 1.575 m Jarred Duarte MD 11/27/2023 4:05 PM Signed SPINE SURGERY NEW PATIENT This is an in-person visit. PCP: Melodie Marina PUBLIC RELATIONS WRITER REFERRING PROVIDER: Meka Webb MD SUBJECTIVE HISTORY OF PRESENT ILLNESS: Elo Gray is a 67 year old female w/ hx of MS and smoking and DMII presenting alone. She has had mid back pain and has trouble sitting in a chair with a back. Some worsening balance and some weakness and heaviness in her legs when walking longer distances. She is ambulatory at baseline with a walker. Hx of C4-6 lami fusion and hx of L4-5 and L5-1 decompression in 2015. Denies upper extremity symptoms. On Eliquis, prior hx of [place]. Smokes half a pack a day of cigarettes. Pt does not work and is independent at home. Reports that her back pain is so painful that even touching it causes pain she has to sit in a well-padded chair due to this. CHIEF COMPLAINT: mid back pain PRECIPITATING EVENT: None DURATION OF SYMPTOMS: Greater Than 3 Months PAIN EVALUATION 11/27/2023 1019 11/27/2023 1452 Pain Level: 7 7 Pain Location: Back-Middle Back-Middle Description: Aching;Dull;Radiating;Tin gling -- Duration Units: Minutes -- Frequency: Intermittent Continuous Intervention/Comfort measure: Medication;Cold;Heat;Pill ow support;Positioning -- Pain Radiation: to the right and left foot/feet Aggravating Factors: Extension, Walking Alleviating Factors: leaning forward Pain Ratio: Pain in the back is greater than in the leg DERMATOMAL DISTRIBUTION: No dermatomal distribution AMBULATORY STATUS: Impaired Community Distances ANTIPLATELET OR ANTICOAGULATION STATUS: Yes Previous [place], eliquis and aspirin PREVIOUS CONSERVATIVE TREATMENTS: Dates of PT 04/18 to present PREVIOUS SPINAL SURGERY: L4-5 decompression, L5-S1 decompression, C4-6 lami fusion 2015 ACTIVE PROBLEM LIST Colitis Htn (Hypertension) Ms (Multiple Sclerosis) (Hcc) Ulcerative Colitis (Hcc) Diabetes Mellitus (Hcc) Paroxysmal A-Fib (Hcc) Tobacco Dependence Dyslipidemia Anxiety and Depression Cardiomyopathy (Hcc) Lv (Left Ventricular) Mural Thrombus Obesity, Class I, Bmi 30-34.9 Chronic Fatigue Kyphosis Myofascial Pain Syndrome PAST MEDICAL HISTORY No date: Anxiety and depression No date: Anxiety and depression No date: Atrial fibrillation ([facility]) No date: Cardiomyopathy ([facility]) No date: Cervical myelopathy ([facility]) No date: CHF (congestive heart failure) ([facility]) No date: Cognitive impairment No date: Colitis No date: COPD (chronic obstructive pulmonary disease) ([facility]) No date: Diabetes ([facility]) No date: Dyslipidemia No date: GI bleed No date: History of loop recorder No date: Hypertension No date: IBS (irritable bowel syndrome) No date: Multiple sclerosis ([facility]) 03/2016: Myocardial infarct, old No date: Obesity 1977: Pancreatitis No date: Renal insufficiency No date: RLS (restless legs syndrome) No date: Tobacco dependence No date: Urinary incontinence PAST SURGICAL HISTORY No date: BACK SURGERY HX Comment: lower x3 No date: CARPAL TUNNEL Comment: lt and rt 10/12/2014: COLONOSCOPY FLX DX W/COLLJ SPEC WHEN PFRMD Comment: Colonoscopy in[facility] 02/28/2015: COLONOSCOPY FLX DX W/COLLJ SPEC WHEN PFRMD Comment: Colonoscopy No date: FINGER SURGERY HX Comment: thumb reconstructed No date: KNEE SURGERY HX Comment: lt x2 No date: PAST SURGICAL HISTORY OF Comment: partial amputation of big toe 01/25/2015: PAST SURGICAL HISTORY OF; Left Comment: great toe removal 08/2022: PAST SURGICAL HISTORY OF; Bilateral Comment: C3 and C6 nerve ablasions No date: TONSILLECTOMY HX No date: TUBAL LIGATION HX FAMILY HISTORY Problem Relation Age of Onset Cancer Father lung Cancer Mother pancreatic Multiple Sclerosis No Family History Social History Tobacco Use Smoking status: Every Day Packs/day: 0.50 Years: 30.00 Additional pack years: 0.00 Total pack years: 15.00 Types: Cigarettes Start date: 01/04/1973 Smokeless tobacco: Never Tobacco comments: Less than 10 Vaping Use Vaping Use: Never used Substance Use Topics Alcohol use: No Drug use: No ALLERGIES Allergen Reactions Aspirin Other: See Comments Indomethacin Other: See Comments Trazodone Intolerance Unable to wake up Imitrex [Sumatripta* Vomiting BP went down Abilify [Aripiprazo* Other: See Comments Excessive drooling Clindamycin Intolerance Darvocet A500 [Prop* Intolerance Iodinated Contrast * Other: See Comments Iodine Intolerance rash Metformin GI Upset Stomach spasms Propoxyphene Other: See Comments MEDICATIONS: tiZANidine (ZANAFLEX) 2 mg tablet Take 1 (more content not included)... [facility] CNOVon 11-19-2023 CNOV Normal [facility] CRYOTHERAPY SKIN LESIONon Complexity: simple Destruction method: cryotherapy Destruction method comment: X2 Informed consent: discussed and consent obtained Informed consent comment: Risk of hypopigmentation and recurrence of lesion(s) discussed. Timeout: patient name, date of , surgical site, and procedure verified Lesion destroyed using liquid nitrogen: Yes Region frozen until ice ball extended beyond lesion: Yes Outcome: patient tolerated procedure well with no complications Post-procedure details: wound care instructions given [facility] Cobalamin (Vitamin B12) [Mas s/Vol]on 11-10-2023 Interpretation and review of laboratory results Normal [facility] VITAMIN B12on 11-10-2023 Cobalamin (Vitamin B12) [Mass/Vol] 1047 pg/mL 232 - 1245 pg/mL [facility] CRYOTHERAPY SKIN LESIONon Complexity: simple Destruction method: cryotherapy Destruction method comment: X2 Informed consent: discussed and consent obtained Informed consent comment: Risk of hypopigmentation and recurrence of lesion(s) discussed. Timeout: patient name, date of , surgical site, and procedure verified Lesion destroyed using liquid nitrogen: Yes Region frozen until ice ball extended beyond lesion: Yes Outcome: patient tolerated procedure well with no complications Post-procedure details: wound care instructions given [facility] CBC W Auto Differential pane l (Bld)on 09-24-2023 Basophils (Bld) [#/Vol] 0.08 10*3/uL [facility] Basophils/100 WBC (Bld) 0.9 % [facility] Differential cell count method Nom (Bld) Auto [facility] Eosinophils (Bld) [#/Vol] 0.18 10*3/uL [facility] Eosinophils/100 WBC (Bld) 2.0 % [facility] Erythrocyte distribution width (RBC) [Ratio] 14.5 % 11.5 - 15.0 % [facility] Hematocrit (Bld) [Volume fraction] 46.0 % 36.0 - 46.0 % [facility] Hemoglobin (Bld) [Mass/Vol] 15.2 g/dL 11.5 - 15.5 g/dL [facility] Immature granulocytes (Bld) [#/Vol] 0.04 10*3/u[facility] Immature granulocytes/100 WBC (Bld) 0.5 % [facility] Lymphocytes (Bld) [#/Vol] 1.40 10*3/uL [facility] Lymphocytes/100 WBC (Bld) 15.9 % [facility] MCH (RBC) [Entitic mass] 31.7 pg 26.0 - 34.0 pg [facility] MCHC (RBC) [Mass/Vol] 33.0 g/dL 30.5 - 36.0 g/dL [facility] MCV (RBC) [Entitic vol] 95.8 fL 80.0 - 100.0 fL [facility] Monocytes (Bld) [#/Vol] 0.81 10*3/uL [facility] Monocytes/100 WBC (Bld) 9.2 % [facility] Neutrophils (Bld) [#/Vol] 6.28 10*3/uL [facility] Neutrophils/100 WBC (Bld) 71.5 % [facility] Nucleated RBC (Bld) [#/Vol] [facility] Nucleated RBC/100 WBC (Bld) [Ratio] 0.0 % /100 WBC [facility] Platelet mean volume (Bld) [Entitic vol] 10.1 fL 9.0 - 12.7 fL [facility] Platelets (Bld) [#/Vol] 241 10*3/uL [facility] RBC (Bld) [#/Vol] 4.80 10*6/uL 3.90 - 5.2 0 m/uL [facility] WBC (Bld) [#/Vol] 8.79 10*3/uL [facility] Cobalamin (Vitamin B12) [Mas s/Vol]on 09-24-2023 Interpretation and review of laboratory results Abnormal [facility] Comprehensive metabolic 2000 panelon 09-24-2023 Albumin [Mass/Vol] 4.2 g/dL 3.9 - 4.9 g/dL [facility] ALP [Catalytic activity/Vol] 92 U/L 34 - 123 U/L [facility] ALT [Catalytic activity/Vol] 12 U/L 7 - 38 U/L [facility] Anion gap [Moles/Vol] 12 mmol/L 9 - 18 mmol/L [facility] AST [Catalytic activity/Vol] 16 U/L 13 - 35 U/L [facility] Bilirubin [Mass/Vol] 0.4 mg/dL 0.2 - 1 .3 mg/dL [facility] Calcium [Mass/Vol] 10.5 mg/dL High 8.5 - 10. 2 mg/dL [facility] Chloride [Moles/Vol] 103 mmol/L 97 - 10 5 mmol/L [facility] CO2 [Moles/Vol] 21 mmol/L Low 22 - 30 mmol/L [facility] Creatinine [Mass/Vol] 0.61 mg/dL 0.58 - 0.96 mg/dL [facility] GFR/1.73 sq M.predicted among non-blacks MDRD (S/P/Bld) [Vol rate/Area] 98 mL/min/{1.73_m2} - PINF [facility] Comment on above: Estimated Glomerular Filtration Rate (eGFR) is calculated using the 2020 CKD-EPI creatinine equation. This equation utilizes serum creatinine, sex, and age as parameters. The creatinine assay has traceable calibration to isotope dilution-mass spectrometry. Refer to KDIGO guidelines for clinical interpretation. In patients with unstable renal function, e.g. those with acute kidney injury, the eGFR may not accurately reflect actual GFR. Glucose [Mass/Vol] 170 mg/dL High 74 - 99 mg/dL [facility] Comment on above: The [place] Di[employer] Association (ADA) provides guidance for cutoff values for fasting glucose and random glucose. The ADA defines fasting as no caloric intake for at least 8 hours. Fasting plasma glucose results between 100 to 125 mg/dL indicate increased risk for diabetes (prediabetes). Fasting plasma glucose results greater than or equal to 126 mg/dL meet the criteria for diagnosis of diabetes. In the absence of unequivocal hyperglycemia, results should be confirmed by repeat testing. In a patient with classic symptoms of hyperglycemia or hyperglycemic crisis, random plasma glucose results greater than or equal to 200 mg/dL meet the criteria for diagnosis of diabetes. Reference: Standards of Medical Care in Diabetes 2016, [place] [employer]. Diabetes Care. 2016.39(Suppl 1). Interpretation and review of laboratory results Abnormal [facility] Potassium [Moles/Vol] 4.7 mmol/L 3.7 - 5.1 mmol/L [facility] Protein [Mass/Vol] 6.3 g/dL 6.3 - 8.0 g/dL [facility] Sodium [Moles/Vol] 136 mmol/L 136 - 144 mmol/L [facility] Urea nitrogen [Mass/Vol] 20 mg/dL 7 - 21 mg/dL [facility] Laboratory - Chemistry and C hemistry - challengeon 09-24-2023 Cobalamin (Vitamin B12) [Mass/Vol] pg/mL High 232 - 1245 pg/mL [facility] MR Thoracic spine WO and W c ontrast Kayleen 09-16-2023 IMPRESSION: Multilevel degenerative changes throughout the thoracic spine most pronounced at T10-T11 with posterior broad-based disc bulge and degenerative facet hypertrophy with associated ligamentum flavum thickening resulting in moderate to advanced canal stenosis with focal cord compression, similar to prior. There is also advanced degenerative foraminal stenosis bilaterally at this level. Recommend neurosurgical evaluation. Mild edema and/or myelomalacia within the cord at T10-T11. No intramedullary enhancement. Anatomic Thoracic/Lumbar Variant: None. L4-5 is considered the level of the iliac crest and assume there are 5 lumbar-type vertebrae. Painter Tumbling Barrel: [facility] Transcribe Date/Time: Sep 16 2023 12:04P Dictated by : ZACH CALDWELL MD This examination was interpreted and the report reviewed and electronically signed by: ZACH CALDWELL MD on Sep 16 2023 12:12PM [facility] DIVISION OF RADIOLOGY * * *Final Report* * * DATE OF EXAM: Sep 16 2023 11:00AM [facility] 0326 - MRI THORACIC SPINE WO/W IVCON / PROCEDURE REASON: multiple diagnoses * * * * Physician Interpretation * * * * EXAMINATION: MRI THORACIC SPINE WO/W IVCON CLINICAL HISTORY: Thoracic myelopathy History of multiple sclerosis (HCC) TECHNIQUE: Routine thoracic spine MR protocol with and without intravenous gadolinium. MQ: [id number] COMPARISON: MRI thoracic spine 08/22/2022 RESULT: Counting reference: Craniocervical and lumbosacral junctions. Localizer images: No additional findings. Alignment: Mild S-shaped curvature of the thoracic spine without substantial listhesis. Cord: Mild edema and/or myelomalacia within the cord at T10-T11. Bone marrow signal/fracture: No evidence of pathologic marrow infiltration. No evidence of prior fracture. Thoracic paraspinal soft tissues: The paraspinal soft tissues are within normal limits. Canal and foramina: Multilevel degenerative changes throughout the thoracic spine most pronounced at T10-T11 with posterior broad-based disc bulge and degenerative facet hypertrophy with associated ligamentum flavum thickening resulting in moderate to advanced canal stenosis with focal cord compression. Degenerative foraminal stenosis is most pronounced and advanced bilaterally at T10-T11 as well as moderate bilaterally at T8-T9 and T9-T10. DIVISION OF RADIOLOGY Provider, [facility] - 09/16/2023 * * *Final Report* * * DATE OF EXAM: Sep 16 2023 11:00AM [facility] 0326 - MRI THORACIC SPINE WO/W IVCON / PROCEDURE REASON: multiple diagnoses * * * * Physician Interpretation * * * * EXAMINATION: MRI THORACIC SPINE WO/W IVCON CLINICAL HISTORY: Thoracic myelopathy History of multiple sclerosis (HCC) TECHNIQUE: Routine thoracic spine MR protocol with and without intravenous gadolinium. MQ: [email or web address] COMPARISON: MRI thoracic spine 08/22/2022 RESULT: Counting reference: Craniocervical and lumbosacral junctions. Localizer images: No additional findings. Alignment: Mild S-shaped curvature of the thoracic spine without substantial listhesis. Cord: Mild edema and/or myelomalacia within the cord at T10-T11. Bone marrow signal/fracture: No evidence of pathologic marrow infiltration. No evidence of prior fracture. Thoracic paraspinal soft tissues: The paraspinal soft tissues are within normal limits. Canal and foramina: Multilevel degenerative changes throughout the thoracic spine most pronounced at T10-T11 with posterior broad-based disc bulge and degenerative facet hypertrophy with associated ligamentum flavum thickening resulting in moderate to advanced canal stenosis with focal cord compression. Degenerative foraminal stenosis is most pronounced and advanced bilaterally at T10-T11 as well as moderate bilaterally at T8-T9 and T9-T10. IMPRESSION IMPRESSION: Multilevel degenerative changes throughout the thoracic spine most pronounced at T10-T11 with posterior broad-based disc bulge and degenerative facet hypertrophy with associated ligamentum flavum thickening resulting in moderate to advanced canal stenosis with focal cord compression, similar to prior. There is also advanced degenerative foraminal stenosis bilaterally at this level. Recommend neurosurgical evaluation. Mild edema and/or myelomalacia within the cord at T10-T11. No intramedullary enhancement. Anatomic Thoracic/Lumbar Variant: None. L4-5 is considered the level of the iliac crest and assume there are 5 lumbar-type vertebrae. Painter Tumbling Barrel: [facility] Transcribe Date/Time: Sep 16 2023 12:04P Dictated by : ZACH CALDWELL MD This examination was interpreted and the report reviewed and electronically signed by: ZACH CALDWELL MD on Sep 16 2023 12:12PM EST [facility] Radiology Study observation (narrative) [facility] MR Thoracic spine WO and W c ontrast IVOrdered By: [facility] Provider on 09-16-2023 [facility] BRAIN & CERVICAL SPINE MRI D ISCRETE DATAon 07-27-2023 Brain Enhancing Lesions Not applicable [facility] Brain Interval Improvement None [facility] Brain New T2 Lesions None Site [facility] Brain Other Significant MRI Findings None. [facility] Brain Parenchymal Volume Loss Mild [facility] Brain T2 [place] of Disease Moderate [facility] No Panel Informationon 07-26 [facility] CBC W Auto Differential pane l (Bld)on 06-24-2023 Basophils (Bld) [#/Vol] 0.09 10*3/uL <0.11 k/uL [facility] Basophils/100 WBC (Bld) 1.2 % [facility] Differential cell count method Nom (Bld) Auto [facility] Eosinophils (Bld) [#/Vol] 0.18 10*3/uL <0.46 k/uL [facility] Eosinophils/100 WBC (Bld) 2.4 % [facility] Erythrocyte distribution width (RBC) [Ratio] 13.8 % 11.5 - 15.0 % [facility] Hematocrit (Bld) [Volume fraction] 47.2 % High 36.0 - 46.0 % [facility] Hemoglobin (Bld) [Mass/Vol] 15.0 g/dL 11.5 - 15.5 g/dL [facility] Immature granulocytes (Bld) [#/Vol] <0.10 k/uL [facility] Immature granulocytes/100 WBC (Bld) 0.3 % [facility] Lymphocytes (Bld) [#/Vol] 1.91 10*3/uL 1.00 - 4.00 k/uL [facility] Lymphocytes/100 WBC (Bld) 25.5 % [facility] MCH (RBC) [Entitic mass] 31.3 pg 26.0 - 34.0 pg [facility] MCHC (RBC) [Mass/Vol] 31.8 g/dL 30.5 - 36.0 g/dL [facility] MCV (RBC) [Entitic vol] 98.5 fL 80.0 - 100.0 fL [facility] Monocytes (Bld) [#/Vol] 0.86 10*3/uL <0.87 k/uL [facility] Monocytes/100 WBC (Bld) 11.5 % [facility] Neutrophils (Bld) [#/Vol] 4.44 10*3/uL 1.45 - 7.50 k/uL [facility] Neutrophils/100 WBC (Bld) 59.1 % [facility] Nucleated RBC (Bld) [#/Vol] <0.01 k/uL [facility] Nucleated RBC/100 WBC (Bld) [Ratio] 0.0 /100 WBC [facility] Platelet mean volume (Bld) [Entitic vol] 9.7 fL 9.0 - 12.7 fL [facility] Platelets (Bld) [#/Vol] 208 10*3/uL 150 - 400 k/uL [facility] RBC (Bld) [#/Vol] 4.79 10*6/uL 3.90 - 5.2 0 m/uL [facility] WBC (Bld) [#/Vol] 7.50 10*3/uL 3.70 - 11.00 k/uL [facility] Comprehensive metabolic 2000 panelon 06-24-2023 Albumin [Mass/Vol] 4.1 g/dL 3.9 - 4.9 g/dL [facility] ALP [Catalytic activity/Vol] 83 U/L 34 - 123 U/L [facility] ALT [Catalytic activity/Vol] 12 U/L 7 - 38 U/L [facility] Anion gap [Moles/Vol] 15 mmol/L 9 - 18 mmol/L [facility] AST [Catalytic activity/Vol] 16 U/L 13 - 35 U/L [facility] Bilirubin [Mass/Vol] 0.4 mg/dL 0.2 - 1 .3 mg/dL [facility] Calcium [Mass/Vol] 11.2 mg/dL High 8.5 - 10. 2 mg/dL [facility] Chloride [Moles/Vol] 107 mmol/L High 97 - 10 5 mmol/L [facility] CO2 [Moles/Vol] 21 mmol/L Low 22 - 30 mmol/L [facility] Creatinine [Mass/Vol] 0.86 mg/dL 0.58 - 0.96 mg/dL [facility] Estimated Glomerular Filtration Rate 74 mL/min/1.73m >=60 mL/min/1.73 m [facility] Glucose [Mass/Vol] 177 mg/dL High 74 - 99 mg/dL [facility] Potassium [Moles/Vol] 4.7 mmol/L 3.7 - 5.1 mmol/L [facility] Protein [Mass/Vol] 6.6 g/dL 6.3 - 8.0 g/dL [facility] Sodium [Moles/Vol] 143 mmol/L 136 - 144 mmol/L [facility] Urea nitrogen [Mass/Vol] 26 mg/dL High 7 - 21 mg/dL [facility] IGGon 06-24-2023 IgG [Mass/Vol] 723 mg/dL 700 - 1,600 mg/dL [facility] IGMon 06-24-2023 IgM [Mass/Vol] 32 mg/dL Low 40 - 230 mg/dL [facility] No Panel Informationon 01-15 Radiology Study observation (narrative) [facility] IMPRESSION: SCOLIOSIS AND DEGENERATIVE DISC DISEASE Painter Tumbling Barrel: STEPHANIE Transcribe Date/Time: Jan 15 2023 12:54P Dictated by : PRITI JONES MD This examination was interpreted and the report reviewed and electronically signed by: PRITI JONES MD on Jan 15 2023 12:56PM EST DIVISION OF RADIOLOGY IMPRESSION: EXPECTED POSTOPERATIVE APPEARANCE Painter Tumbling Barrel: STEPHANIE Transcribe Date/Time: Jan 15 2023 12:52P Dictated by : PRITI JONES MD This examination was interpreted and the report reviewed and electronically signed by: PRITI JONES MD on Jan 15 2023 12:54PM EST DIVISION OF RADIOLOGY [facility] No Panel InformationOrdered By: Ccf Provider on 01-15-2023 [facility] XR Cervical spine 2 or 3 vie ws and (Views W flexion and W extension)on 01-15-2023 * * *Final Report* * * DATE OF EXAM: Jan 15 2023 12:27PM [id number] [id number] - XR CERVICAL 2V FLEX/EXT / PROCEDURE REASON: Cervical vertebral fusion * * * * Physician Interpretation * * * * HISTORY (as given from clinical provider): Cervical vertebral fusion . Additional history provided by the performing technologist (if any): CHRONIC PAIN AND FUSION TECHNIQUE: XR CERVICAL 4V AP/LAT/OBL, XR CERVICAL 2V FLEX/EXT COMPARISON: None RESULT: Counting reference: Craniocervical junction. Anatomic Variants: None. The C7 level is not well seen on the lateral view due to overlapping tissues. Posterior decompression C4-C6 and posterior fusion C4-C6 using rods and lateral mass screws. Intact hardware. No evidence of loosening. Alignment is maintained through flexion and extension. Severe disc narrowing C5-6 and C6-7 compatible with degenerative disc disease. No other significant abnormality. DIVISION OF RADIOLOGY Provider, [facility] - 01/15/2023 * * *Final Report* * * DATE OF EXAM: Jan 15 2023 12:27PM [id number] [id number] - XR CERVICAL 2V FLEX/EXT / PROCEDURE REASON: Cervical vertebral fusion * * * * Physician Interpretation * * * * HISTORY (as given from clinical provider): Cervical vertebral fusion . Additional history provided by the performing technologist (if any): CHRONIC PAIN AND FUSION TECHNIQUE: XR CERVICAL 4V AP/LAT/OBL, XR CERVICAL 2V FLEX/EXT COMPARISON: None RESULT: Counting reference: Craniocervical junction. Anatomic Variants: None. The C7 level is not well seen on the lateral view due to overlapping tissues. Posterior decompression C4-C6 and posterior fusion C4-C6 using rods and lateral mass screws. Intact hardware. No evidence of loosening. Alignment is maintained through flexion and extension. Severe disc narrowing C5-6 and C6-7 compatible with degenerative disc disease. No other significant abnormality. IMPRESSION IMPRESSION: EXPECTED POSTOPERATIVE APPEARANCE Painter Tumbling Barrel: STEPHANIE Transcribe Date/Time: Jan 15 2023 12:52P Dictated by : PRITI JONES MD This examination was interpreted and the report reviewed and electronically signed by: PRITI JONES MD on Jan 15 2023 12:54PM [facility] XR Cervical spine AP and Lat eral and obliqueon 01-15-2023 * * *Final Report* * * DATE OF EXAM: Jan 15 2023 12:27PM [id number] [id number] - XR CERVICAL 4V AP/LAT/OBL / PROCEDURE REASON: Cervical vertebral fusion * * * * Physician Interpretation * * * * HISTORY (as given from clinical provider): Cervical vertebral fusion . Additional history provided by the performing technologist (if any): CHRONIC PAIN AND FUSION TECHNIQUE: XR CERVICAL 4V AP/LAT/OBL, XR CERVICAL 2V FLEX/EXT COMPARISON: None RESULT: Counting reference: Craniocervical junction. Anatomic Variants: None. The C7 level is not well seen on the lateral view due to overlapping tissues. Posterior decompression C4-C6 and posterior fusion C4-C6 using rods and lateral mass screws. Intact hardware. No evidence of loosening. Alignment is maintained through flexion and extension. Severe disc narrowing C5-6 and C6-7 compatible with degenerative disc disease. No other significant abnormality. DIVISION OF RADIOLOGY Provider, [facility] - 01/15/2023 * * *Final Report* * * DATE OF EXAM: Jan 15 2023 12:27PM [id number] [id number] - XR CERVICAL 4V AP/LAT/OBL / PROCEDURE REASON: Cervical vertebral fusion * * * * Physician Interpretation * * * * HISTORY (as given from clinical provider): Cervical vertebral fusion . Additional history provided by the performing technologist (if any): CHRONIC PAIN AND FUSION TECHNIQUE: XR CERVICAL 4V AP/LAT/OBL, XR CERVICAL 2V FLEX/EXT COMPARISON: None RESULT: Counting reference: Craniocervical junction. Anatomic Variants: None. The C7 level is not well seen on the lateral view due to overlapping tissues. Posterior decompression C4-C6 and posterior fusion C4-C6 using rods and lateral mass screws. Intact hardware. No evidence of loosening. Alignment is maintained through flexion and extension. Severe disc narrowing C5-6 and C6-7 compatible with degenerative disc disease. No other significant abnormality. IMPRESSION IMPRESSION: EXPECTED POSTOPERATIVE APPEARANCE Painter Tumbling Barrel: STEPHANIE Transcribe Date/Time: Jan 15 2023 12:52P Dictated by : PRITI JONES MD This examination was interpreted and the report reviewed and electronically signed by: PRITI JONES MD on Jan 15 2023 12:54PM [facility] XR Lumbar spine Views W flex ion and W extensionon 01-15-2023 * * *Final Report* * * DATE OF EXAM: Jan 15 2023 12:27PM [id number] [id number] - XR LUMBAR 4V AP/LAT/ FLEX/EXT / PROCEDURE REASON: S/P lumbar fusion * * * * Physician Interpretation * * * * HISTORY (as given from clinical provider): Postural kyphosis of thoracic region . Additional history provided by the performing technologist (if any): KYPHOSIS (accession [id number]), S/P LUMBAR FUSION (accession [id number]) TECHNIQUE: XR THORACIC 3V AP/LAT/SWIMMERS, XR LUMBAR 4V AP/LAT/ FLEX/EXT COMPARISON: 08/14/2022 MRI RESULT: Counting reference: Lumbosacral junction. For the purposes of this report, L4-5 is considered the level of the iliac crest and there are 5 lumbar-type vertebrae. Anatomic Variants: None. Mild long segment levoscoliosis of the thoracic spine centered in the lower thoracic spine. Moderate increased kyphosis in the lower thoracic spine probably with a mild anterior wedge compression fracture deformity at T11, unchanged. Severe degenerative disc disease in the lower thoracic spine. [place] mild scoliosis centered in the upper lumbar spine with severe multilevel degenerative disc disease in the lumbar spine. Posterior decompression L4 and L5 and partial decompression L3. Mild osteoarthritis of the hips bilaterally. Incidental note of a cardiac loop recorder. No other significant abnormality. DIVISION OF RADIOLOGY Provider, [facility] - 01/15/2023 * * *Final Report* * * DATE OF EXAM: Jan 15 2023 12:27PM [id number] [id number] - XR LUMBAR 4V AP/LAT/ FLEX/EXT / PROCEDURE REASON: S/P lumbar fusion * * * * Physician Interpretation * * * * HISTORY (as given from clinical provider): Postural kyphosis of thoracic region . Additional history provided by the performing technologist (if any): KYPHOSIS (accession [id number]), S/P LUMBAR FUSION (accession [id number]) TECHNIQUE: XR THORACIC 3V AP/LAT/SWIMMERS, XR LUMBAR 4V AP/LAT/ FLEX/EXT COMPARISON: 08/14/2022 MRI RESULT: Counting reference: Lumbosacral junction. For the purposes of this report, L4-5 is considered the level of the iliac crest and there are 5 lumbar-type vertebrae. Anatomic Variants: None. Mild long segment levoscoliosis of the thoracic spine centered in the lower thoracic spine. Moderate increased kyphosis in the lower thoracic spine probably with a mild anterior wedge compression fracture deformity at T11, unchanged. Severe degenerative disc disease in the lower thoracic spine. [place] mild scoliosis centered in the upper lumbar spine with severe multilevel degenerative disc disease in the lumbar spine. Posterior decompression L4 and L5 and partial decompression L3. Mild osteoarthritis of the hips bilaterally. Incidental note of a cardiac loop recorder. No other significant abnormality. 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 Additional history provided by the performing technologist (if any): KYPHOSIS (accession [id number]), S/P LUMBAR FUSION (accession [id number]) TECHNIQUE: XR THORACIC 3V AP/LAT/SWIMMERS, XR LUMBAR 4V AP/LAT/ FLEX/EXT COMPARISON: 08/14/2022 MRI RESULT: Counting reference: Lumbosacral junction. For the purposes of this report, L4-5 is considered the level of the iliac crest and there are 5 lumbar-type vertebrae. Anatomic Variants: None. Mild long segment levoscoliosis of the thoracic spine centered in the lower thoracic spine. Moderate increased kyphosis in the lower thoracic spine probably with a mild anterior wedge compression fracture deformity at T11, unchanged. Severe degenerative disc disease in the lower thoracic spine. [place] mild scoliosis centered in the upper lumbar spine with severe multilevel degenerative disc disease in the lumbar spine. Posterior decompression L4 and L5 and partial decompression L3. Mild osteoarthritis of the hips bilaterally. Incidental note of a cardiac loop recorder. No other significant abnormality. DIVISION OF RADIOLOGY Provider, [facility] - 01/15/2023 * * *Final Report* * * DATE OF EXAM: Jan 15 2023 12:27PM CRX [id number] - XR THORACIC 3V AP/LAT/SWIMMERS / PROCEDURE REASON: Postural kyphosis of thoracic region * * * * Physician Interpretation * * * * HISTORY (as given from clinical provider): Postural kyphosis of thoracic region . Additional history provided by the performing technologist (if any): KYPHOSIS (accession [id number]), S/P LUMBAR FUSION (accession [id number]) TECHNIQUE: XR THORACIC 3V AP/LAT/SWIMMERS, XR LUMBAR 4V AP/LAT/ FLEX/EXT COMPARISON: 08/14/2022 MRI RESULT: Counting reference: Lumbosacral junction. For the purposes of this report, L4-5 is considered the level of the iliac crest and there are 5 lumbar-type vertebrae. Anatomic Variants: None. Mild long segment levoscoliosis of the thoracic spine centered in the lower thoracic spine. Moderate increased kyphosis in the lower thoracic spine probably with a mild anterior wedge compression fracture deformity at T11, unchanged. Severe degenerative disc disease in the lower thoracic spine. [place] mild scoliosis centered in the upper lumbar spine with severe multilevel degenerative disc disease in the lumbar spine. Posterior decompression L4 and L5 and partial decompression L3. Mild osteoarthritis of the hips bilaterally. Incidental note of a cardiac loop recorder. No other significant abnormality. IMPRESSION IMPRESSION: SCOLIOSIS AND DEGENERATIVE DISC DISEASE Painter Tumbling Barrel: PSCB Transcribe Date/Time: Jan 15 2023 12:54P Dictated by : PRITI JONES MD This examination was interpreted and the report reviewed and electronically signed by: PRITI JONES MD on Jan 15 2023 12:56PM [facility] metabolic 2000 panelon 01-14-2023 Albumin [Mass/Vol] 3.9 g/dL Normal 3.9-4.9 [facility] Comment on above: Order Comment: Speci men Type: BLOOD SPECIMEN Ordering Facility: [facility] Address: [address] Performed By: #### L IPNF, #### [facility] CLIA [id number] [address] [place] [address] [place] ALP [Catalytic activity/Vol] 78 U/L Normal 34-123 [facility] Comment on above: Order Comment: Speci men Type: BLOOD SPECIMEN Ordering Facility: [facility] Address: [address] Performed By: #### L IPNF, #### [facility] CLIA [id number] [address] [place] [address] [place] ALT [Catalytic activity/Vol] 9 U/L Normal 7-38 [facility] Comment on above: Order Comment: Speci men Type: BLOOD SPECIMEN Ordering Facility: [facility] Address: [address] Performed By: #### L IPNF, #### [facility] CLIA [id number] [address] [place] [address] [place] Anion gap [Moles/Vol] 9 mmol/L Normal 9-18 [facility] Comment on above: Order Comment: Speci men Type: BLOOD SPECIMEN Ordering Facility: [facility] Address: [address] Performed By: #### L IPNF, #### [facility] CLIA [id number] [address] [place] [address] [place] AST [Catalytic activity/Vol] 12 U/L Low 13-35 [facility] Comment on above: Order Comment: Speci men Type: BLOOD SPECIMEN Ordering Facility: [facility] Address: [address] Performed By: #### L IPNF, #### [facility] CLIA [id number] [address] [place] [address] [place] Bilirubin [Mass/Vol] 0.3 mg/dL Normal 0.2-1.3 [facility] Comment on above: Order Comment: Speci men Type: BLOOD SPECIMEN Ordering Facility: [facility] Address: [address] Performed By: #### L IPNF, #### [facility] CLIA [id number] [address] [place] [address] [place] Calcium [Mass/Vol] 10.1 mg/dL Normal 8.5-10.2 [facility] Comment on above: Order Comment: Speci men Type: BLOOD SPECIMEN Ordering Facility: [facility] Address: [address] Performed By: #### L IPNF, #### [facility] CLIA [id number] [address] [place] [address] [place] Chloride [Moles/Vol] 103 mmol/L Normal 97-105 [facility] Comment on above: Order Comment: Speci men Type: BLOOD SPECIMEN Ordering Facility: [facility] Address: [address] Performed By: #### L IPNF, #### [facility] CLIA [id number] [address] [place] [address] [place] CO2 [Moles/Vol] 25 mmol/L Normal 22-30 [facility] Comment on above: Order Comment: Speci men Type: BLOOD SPECIMEN Ordering Facility: [facility] Address: [address] Performed By: #### L IPNF, #### [facility] CLIA [id number] [address] [place] [address] [place] Creatinine [Mass/Vol] 0.63 mg/dL Normal 0.58-0.96 [facility] Comment on above: Order Comment: Speci men Type: BLOOD SPECIMEN Ordering Facility: [facility] Address: [address] Performed By: #### L IPNF, #### [facility] CLIA [id number] [address] [place] [address] [place] Creatinine and Glomerular filtration rate.predicted panel (S/P/Bld) 97 mL/min/1.73m??? Normal >=60 [facility] Comment on above: Order Comment: Luis velez Type: BLOOD SPECIMEN Ordering Facility: [facility] Address: [address] [place] [address] Result Comment: [facility] Glomerular Filtration Rate (eGFR) is calculated using the 2020 CKD-EPI creatinine equation. This equation utilizes serum creatinine, sex, and age as parameters. The creatinine assay has traceable calibration to isotope dilution-mass spectrometry. Refer to KDIGO guidelines for clinical interpretation. In patients with unstable renal function, e.g. those with acute kidney injury, the eGFR may not accurately reflect actual GFR. Performed By: #### L ROSAURA, 16642-6 #### [facility] CLIA [id number] [address] [place] [address] [place] Glucose [Mass/Vol] 171 mg/dL High 74-99 [facility] Comment on above: Order Comment: Luis velez Type: BLOOD SPECIMEN Ordering Facility: [facility] Address: [address] [place] [address] Result Comment: The [place] Diabetes Association (ADA) provides guidance for cutoff values for fasting glucose and random glucose. The ADA defines fasting as no caloric intake for at least 8 hours. Fasting plasma glucose results between 100 to 125 mg/dL indicate increased risk for diabetes (prediabetes). Fasting plasma glucose results greater than or equal to 126 mg/dL meet the criteria for diagnosis of diabetes. In the absence of unequivocal hyperglycemia, results should be confirmed by repeat testing. In a patient with classic symptoms of hyperglycemia or hyperglycemic crisis, random plasma glucose results greater than or equal to 200 mg/dL meet the criteria for diagnosis of diabetes. Reference: Standards of Medical Care in Diabetes 2016, [place] [employer]. Diabetes Care. 2016.39(Suppl 1). Performed By: #### L ROSAURA, 60696-6 #### [facility] CLIA [id number] [address] [place] [address] [place] Potassium [Moles/Vol] 4.5 mmol/L Normal 3.7-5.1 [facility] Comment on above: Order Comment: Speci men Type: BLOOD SPECIMEN Ordering Facility: [facility] Address: [address]ivam [address] Performed By: #### L IPNF, #### [facility] CLIA [id number] [address] [place] [address] [place] Protein [Mass/Vol] 5.8 g/dL Low 6.3-8.0 [facility] Comment on above: Order Comment: Speci men Type: BLOOD SPECIMEN Ordering Facility: [facility] Address: [address] [place] [address] Performed By: #### L IPNF, #### [facility] CLIA [id number] [address] [place] [address] [place] Sodium [Moles/Vol] 137 mmol/L Normal 136-144 [facility] Comment on above: Order Comment: Speci men Type: BLOOD SPECIMEN Ordering Facility: [facility] Address: [address] [place], [place] [address] Performed By: #### L IPNF, #### [facility] CLIA [id number] [address] [place] [address] [place] Urea nitrogen [Mass/Vol] 19 mg/dL Normal 7-21 [facility] Comment on above: Order Comment: Speci men Type: BLOOD SPECIMEN Ordering Facility: [facility] Address: Sh[address]am [address] Performed By: #### L IPNF, #### [facility] CLIA [id number] [address] [place] [address] [place] HbA1c (Bld)on 01-14-2023 Average glucose Estimated from glycated hemoglobin (Bld) [Mass/Vol] 157 mg/dL Normal [facility] Comment on above: Order Comment: Speci men Type: BLOOD SPECIMEN Ordering Facility: [facility] Address: [address] [place], [place] [address] Result Comment: eAG: (Estimated average glucose) is a calculated value from HgbA1c and is airport representative of the average blood glucose level in the last 2-3 month period. Performed By: #### 5 5454-3 #### [facility] CLIA [id number] [address] [place] [address] [place] HbA1c (Bld) [Mass fraction] 7.1 % High 4.3-5.6 [facility] Comment on above: Order Comment: Luis velez Type: BLOOD SPECIMEN Ordering Facility: [facility] Address: [address] [place] [address] Result Comment: [place] Diabetes Association guidelines indicate that patients with HgbA1c in the range 5.7-6.4% are at increased risk for development of diabetes, and intervention by lifestyle modification may be beneficial. HgbA1c greater or equal to 6.5% is considered diagnostic of diabetes. Performed By: #### 5 5454-3 #### [facility] CLIA [id number] [facility] [place] [address] [place] LIPID PANEL, NONFASTINGon Cholesterol [Mass/Vol] 109 mg/dL Normal <200 [facility] Comment on above: Order Comment: Luis velez Type: BLOOD SPECIMEN Ordering Facility: [facility] Address: [address] [place] [address] Result Comment: <200 mg/dL, Desirable 200-239 mg/dL, Borderline high >239 mg/dL, High Performed By: #### L IPNF, 81079-5 #### [facility] CLIA [id number] [address] [place] [address] [place] HDL CHOLESTEROL, NF 71 mg/dL Normal >39 [facility] Comment on above: Order Comment: Luis velez Type: BLOOD SPECIMEN Ordering Facility: [facility] Address: [address] [place], [place] [id number] Result Comment: 40-5 9 mg/dL, Acceptable >59 mg/dL, High: Negative risk factor for coronary heart disease <40 mg/dL, Low: Positive risk factor for coronary heart disease Performed By: #### L IPGEO, 45276-8 #### [facility] CLIA [id number] [address] [place] [address] OF [facility] LDL CHOLESTEROL, NF 22 mg/dL Normal <100 [facility] Comment on above: Order Comment: Luis rosie Type: BLOOD SPECIMEN Ordering Facility: [facility] Address: [address] [place] [address] Result Comment: <100 mg/dL, Optimal 100-129 mg/dL, Near optimal/above optimal 130-159 mg/dL, Borderline high 160-189 mg/dL, High >189 mg/dL, Very high Secondary prevention optimal LDL Cholesterol levels are recommended to be < 70 mg/dL Performed By: #### L ROSAURA, 51070-7 #### [facility] CLIA [id number] [address] [place] [address] LDL/HDL RATIO, NF 0.31 mg/dL Normal <2.54 [facility] Comment on above: Order Comment: Luis velez Type: BLOOD SPECIMEN Ordering Facility: [facility] Address: [address] [place] [address] Result Comment: Refe rence: 1. National Cholesterol Education Program ATP III Guideline At-A-Glance Quick Desk Reference: National Heart, Lung, and Blood [place]. National Institutes of Health. 2001: NIH Publication No. 01-3305. 2. An International Atherosclerosis Society position paper: global recommendations for the management of dyslipidemia: executive summary, Atherosclerosis. 2014: 232(2):410-413. Performed By: #### L ROSAURA, 35962-7 #### [facility] CLIA [id number] [address] [place] [address] OF [facility] NON HDL CHOL, NF 38 mg/dL Normal <130 [facility] Comment on above: Order Comment: Luis rosie Type: BLOOD SPECIMEN Ordering Facility: [facility] Address: [address] [place] [address] Result Comment: <130 mg/dL, Optimal 130-159 mg/dL, Near optimal/above optimal 160-189 mg/dL, Borderline high 190-219 mg/dL, High >219 mg/dL, Very high Secondary prevention optimal non HDL Cholesterol levels are recommended to be <100 mg/dL Performed By: #### L IPNF, 76462-6 #### [facility] CLIA [id number] [address] [place] [address] [place] T CHOL/HDL RATIO NF 1.54 mg/dL Normal <5.10 [facility] Comment on above: Order Comment: Speci men Type: BLOOD SPECIMEN Ordering Facility: [facility] Address: [address] [address] Performed By: #### L IPNF, 03942-1 #### [facility] CLIA [id number] [address] [place] [address] [place] TRIGLYCERIDES, NF 78 mg/dL Normal <150 [facility] Comment on above: Order Comment: Marii men Type: BLOOD SPECIMEN Ordering Facility: [facility] Address: [address] [place] [address] Result Comment: <150 mg/dL, Normal 150-199 mg/dL, Borderline high 200-499 mg/dL, High >499 mg/dL, Very high Performed By: #### L IPNF, 09463-2 #### [facility] CLIA [id number] [address] [place] [address] [place] VLDL CHOLESTEROL, NF 16 mg/dL Normal <30 [facility] Comment on above: Order Comment: Marii rosie Type: BLOOD SPECIMEN Ordering Facility: [facility] Address: [address] [place] [address] Performed By: #### L IPNF, 45670-5 #### [facility] CLIA [id number] [address] [place] [address] [place] Methylmalonate SerPl-sCncon 01-14-2023 Methylmalonate [Moles/Vol] 0.31 umol/L Normal <=0.40 [facility] Comment on above: Order Comment: Speci men Type: BLOOD SPECIMEN Ordering Facility: [facility] Address: [address] [place] [address] Result Comment: This test was developed and its performance characteristics determined by [facility] [place] ([facility] It has not been cleared or approved by the FDA. [facility] is regulated under CLIA as qualified to perform high-complexity testing. This test is used for clinical purposes. It should not be regarded as investigational or for research. Performed By: #### 1 [id number] #### [facility] CLIA [id number] [address] [facility] [id number] [place] [address] [place] VITAMIN B12 BLOODon 01-15-20 23 Cobalamin (Vitamin B12) [Mass/Vol] 324 pg/mL 232 - 1,245 pg/mL [facility] Vit B12 SerPl-mCncon 023 Cobalamin (Vitamin B12) [Mass/Vol] 324 pg/mL Normal 232-1245 [facility] Comment on above: Order Comment: Speci men Type: BLOOD SPECIMEN Ordering Facility: [facility] Address: [address] [place] [address] Performed By: #### 2 132-9 #### [facility] CLIA [id number] [address] [place] [address] [place] XR KNEE GENERAL 4V AP BOTH/P A BOTH/LAT/MERC BILATERALon 11-04-2022 [facility] No Panel Informationon 08-22 Brain Enhancing Lesions None [facility] Brain Interval Improvement None [facility] Brain New T2 Lesions None [facility] Brain Other Significant MRI Findings None. [facility] Brain Parenchymal Volume Loss Mild [facility] Brain T2 [place] of Disease Moderate [facility] Cervical spine enhancing lesions None [facility] Cervical Spine New T2 Lesions None [facility] Cervical Spine T2 [place] of Disease None [facility] HEMOGLOBIN A1C (POC)on 08-06 HbA1c (Bld) [Mass fraction] 8.5 % Abnormal 4.2 - 5.6 % [facility] Absolute lymphocyte counton 04-02-2022 Lymphocytes Auto (Unsp spec) [#/Vol] 1.16 10*3/uL 0.83-4.51 [facility] Work Phone: Basophil percentageon 2021 Basophil percentage 0 SEEN /hpf 0-5 [facility] Work Phone: Basophils/100 WBC (Bld) 0.7 % 0-1 [facility] Work Phone: Chloride [Moles/Vol] 106 mmol/L 98-107 [facility] Work Phone: Eosinophils/100 WBC (Bld) 3.9 % 0-5 [facility] Work Phone: Glucose [Mass/Vol] 240 mg/dL 74-106 [facility] Work Phone: Comment on above: Glucose result great er than or equal to 200 mg/dLsuggests DIABETES MELLITUS per A.D.A. criteria. Neutrophils (Bld) [#/Vol] 3.9 10*3/uL 2.0-7.7 [facility] Work Phone: Neutrophils/100 WBC (Bld) 65.4 % 47-70 [facility] Work Phone: Potassium [Moles/Vol] 4.2 mmol/L 3.5-5.1 [facility] Work Phone: Sodium [Moles/Vol] 136 mmol/L 136-145 [facility] Work Phone: WBC (Bld) [#/Vol] 5.9 10*3/uL 4.4-11.0 [facility] Work Phone: Bilirubin Test strip Ql (U)o n 04-02-2022 Bilirubin Ql (U) Negative Negative [facility] Work Phone: Blood erythrocytes count (nu mber/volume)on 04-02-2022 RBC (Bld) [#/Vol] 3.99 10*6/uL 4.2-5.4 [facility] Work Phone: Blood hemoglobin measurement (mass/volume)on 04-02-2022 Hemoglobin (Bld) [Mass/Vol] 12.1 g/dL 12.0-15.0 [facility] Work Phone: Blood lymphocytes/100 leukoc yteson 04-02-2022 Lymphocytes/100 WBC (Bld) 19.7 % 19-41 [facility] Work Phone: Blood monocytes/100 leukocyt eson 04-02-2022 Monocytes/100 WBC (Bld) 9.8 % 0-10 [facility] Work Phone: [phone] Blood platelet mean volumeon 04-02-2022 Platelet mean volume (Bld) [Entitic vol] 10.0 fL 6.2-12.0 [facility] Work Phone: Determination of erythrocyte mean corpuscular volume (MCV)on 04-02-2022 MCV (RBC) [Entitic vol] 94.2 fL 81-99 [facility] Work Phone: Hematocrit Auto (Bld) [Volum e fraction]on 04-02-2022 Hematocrit (Bld) [Volume fraction] 37.6 % 37-47 [facility] Work Phone: Ketones Test strip Ql (U)on 04-02-2022 Ketones Ql (U) Negative Negative [facility] Work Phone: Laboratory - Chemistry and C hemistry - challengeon 04-02-2022 Lipase [Catalytic activity/Vol] 120 U/L 73-393 [facility] Work Phone: CO2 [Moles/Vol] 25.0 mmol/L 21.0-32.0 [facility] Work Phone: Urea nitrogen/Creatinine [Mass ratio] 24.5 mg/mg 10-20 [facility] Work Phone: Laboratory - Hematology and Cell countson 04-02-2022 Erythrocyte distribution width (RBC) [Entitic vol] 58.1 fL 35.1-43.9 [facility] Work Phone: [phone] Erythrocyte distribution width (RBC) [Ratio] 16.6 % 11.6-14.6 [facility] Work Phone: Immature granulocytes/100 WBC (Bld) 0.500 % 0.0-0.9 [facility] Work Phone: Comment on above: IG% - Immature Granu locytes (promyelocytes, myelocytes and metamyelocytes) > 1% indicates that a LEFT SHIFT is Present. MCH (RBC) [Entitic mass] 30.3 pg 27.0-32.0 [facility] Work Phone: Nucleated RBC/100 WBC (Bld) [Ratio] 0 % 0-5 [facility] Work Phone: [phone] MCHC Auto (RBC) [Mass/Vol]on 04-02-2022 MCHC (RBC) [Mass/Vol] 32.2 g/dL 32-36 [facility] Work Phone: [phone] Mucus LM Ql (Urine sed)on Mucus Ql (Urine sed) 0 SEEN /hpf [facility] Work Phone: [phone] Nitrite Test strip Ql (U)on 04-02-2022 Nitrite Ql (U) Negative Negative [facility] Work Phone: No Panel Informationon 04-02 Troponin I High Sensitivity 9 pg/mL 3.0-54.0 [facility] Work Phone: Comment on above: Please Note: New Viviane t Units and Gender Specific Reference Ranges. For more information see Policy Stat Procedure Starr High Sensitivity Troponin (TNIH) and attachments. Estimated Creatinine Clearance Calc 47.97 ml/min [facility] Work Phone: Estimated GFR (MDRD) Amer 80 mL/min >60 [facility] Work Phone: [phone] Comment on above: GFR Calc Estimated GFR (MDRD) Non-Af Amer 66 mL/min >60 [facility] Work Phone: Comment on above: Non- GFR Calc Platelets bldon 04-02-2022 Platelets (Bld) [#/Vol] 216 10*3/uL 150-450 [facility] Work Phone: [phone] Protein Test strip Ql (U)on 04-02-2022 Protein Ql (U) Negative Negative [facility] Work Phone: [phone] Serum or plasma calcium chula urement (mass/volume)on 04-02-2022 Calcium [Mass/Vol] 9.5 mg/dL 8.5-10.1 [facility] Work Phone: Serum or plasma creatinine m easurement (mass/volume)on 04-02-2022 Creatinine [Mass/Vol] 0.90 mg/dL 0.55-1.02 [facility] Work Phone: Comment on above: The validity of the calculated GFR & GFRAA in patients over 70 years has not been determined. Clinical correlation is essential. Serum or plasma urea nitroge n measurement (mass/volume)on 04-02-2022 Urea nitrogen [Mass/Vol] 22 mg/dL 7-18 [facility] Work Phone: Squamous epithelial cells de tection in urine sediment by light microscopyon 04-02-2022 Epithelial cells.squamous LM Ql (Urine sed) 0 SEEN /hpf 5-10 [facility] Work Phone: Thin prep Papanicolaou smear with manual screeningon 04-02-2022 Thin prep Papanicolaou smear with manual screening 5 5-15 [facility] Work Phone: Urine blood detectionon RBC Ql (U) Negative Negative [facility] Work Phone: RBC Ql (U) 0 SEEN /hpf 0-5 [facility] Work Phone: Urine clarityon 04-02-2022 Clarity (U) Clear Clear [facility] Work Phone: Urine color determinationon 04-02-2022 Color (U) Yellow Yellow [facility] Work Phone: Urine glucose detectionon Glucose Ql (U) Normal mg/dl Normal [facility] Work Phone: Urine leukocyte esterase det ection by dipstickon 04-02-2022 Leukocyte esterase Test strip Ql (U) 25 /ul Negative [facility] Work Phone: Urine pHon 04-02-2022 pH (U) 7.0 [pH] 5.0 - 8.0 [facility] Work Phone: Urine sediment bacteria coun t by microscopy (number/high power field)on 04-02-2022 Bacteria LM.HPF (Urine sed) [#/Area] 0 /[HPF] None Seen [facility] Work Phone: Urine specific gravity measu rementon 04-02-2022 Specific gravity (U) [Rel density] 1.010 1.002-1.030 [facility] Work Phone: Urobilinogen Auto test strip Ql (U)on 04-02-2022 Urobilinogen Ql (U) Normal mg/dl Normal [facility] Work Phone: Absolute lymphocyte counton 02-07-2022 Lymphocytes Auto (Unsp spec) [#/Vol] 1.78 10*3/uL 0.83-4.51 [facility] Work Phone: Basophil percentageon 2021 Basophil percentage 10-25 SEEN /hpf 0-5 [facility] Work Phone: Basophils/100 WBC (Bld) 1.5 % 0-1 [facility] Work Phone: Bilirubin [Mass/Vol] 0.20 mg/dL 0.20-1.00 [facility] Work Phone: Comment on above: For patients on eltr ombopag therapy, use of Dimension Starr TBIL is not recommended. Chloride [Moles/Vol] 109 mmol/L 98-107 [facility] Work Phone: Eosinophils/100 WBC (Bld) 5.7 % 0-5 [facility] Work Phone: Glucose [Mass/Vol] 156 mg/dL 74-106 [facility] Work Phone: Comment on above: Fasting Glucose resu lt greater than or equal to 126 mg/dL suggests DIABETES MELLITUS per A.D.A. criteria. Neutrophils (Bld) [#/Vol] 3.2 10*3/uL 2.0-7.7 [facility] Work Phone: Neutrophils/100 WBC (Bld) 52.6 % 47-70 [facility] Work Phone: Potassium [Moles/Vol] 4.1 mmol/L 3.5-5.1 [facility] Work Phone: Protein [Mass/Vol] 6.2 g/dL 6.4-8.2 [facility] Work Phone: Sodium [Moles/Vol] 138 mmol/L 136-145 [facility] Work Phone: WBC (Bld) [#/Vol] 6.2 10*3/uL 4.4-11.0 [facility] Work Phone: Bilirubin Test strip Ql (U)o n 02-07-2022 Bilirubin Ql (U) Negative Negative [facility] Work Phone: Blood erythrocytes count (nu mber/volume)on 02-07-2022 RBC (Bld) [#/Vol] 3.88 10*6/uL 4.2-5.4 [facility] Work Phone: Blood hemoglobin measurement (mass/volume)on 02-07-2022 Hemoglobin (Bld) [Mass/Vol] 11.6 g/dL 12.0-15.0 [facility] Work Phone: Blood lymphocytes/100 leukoc yteson 02-07-2022 Lymphocytes/100 WBC (Bld) 28.9 % 19-41 [facility] Work Phone: Blood monocytes/100 leukocyt eson 02-07-2022 Monocytes/100 WBC (Bld) 11.0 % 0-10 [facility] Work Phone: Blood platelet mean volumeon 02-07-2022 Platelet mean volume (Bld) [Entitic vol] 9.1 fL 6.2-12.0 [facility] Work Phone: Determination of erythrocyte mean corpuscular volume (MCV)on 02-07-2022 MCV (RBC) [Entitic vol] 93.8 fL 81-99 [facility] Work Phone: Hematocrit Auto (Bld) [Volum e fraction]on 02-07-2022 Hematocrit (Bld) [Volume fraction] 36.4 % 37-47 [facility] Work Phone: [phone] Ketones Test strip Ql (U)on 02-07-2022 Ketones Ql (U) Negative Negative [facility] Work Phone: [phone] Laboratory - Chemistry and C hemistry - challengeon 02-07-2022 ALP [Catalytic activity/Vol] 89 U/L 45-117 [facility] Work Phone: [phone] ALT [Catalytic activity/Vol] 17 U/L 13-56 [facility] Work Phone: [phone] CO2 [Moles/Vol] 23.0 mmol/L 21.0-32.0 [facility] Work Phone: [phone] Globulin (S) [Mass/Vol] 3.1 g/dL 2.2-4.2 [facility] Work Phone: [phone] Urea nitrogen/Creatinine [Mass ratio] 20.6 mg/mg 10-20 [facility] Work Phone: [phone] Laboratory - Hematology and Cell countson 02-07-2022 Erythrocyte distribution width (RBC) [Entitic vol] 53.2 fL 35.1-43.9 [facility] Work Phone: [phone] Erythrocyte distribution width (RBC) [Ratio] 15.3 % 11.6-14.6 [facility] Work Phone: [phone] Immature granulocytes/100 WBC (Bld) 0.300 % 0.0-0.9 [facility] Work Phone: [phone] Comment on above: IG% - Immature Granu locytes (promyelocytes, myelocytes and metamyelocytes) > 1% indicates that a LEFT SHIFT is Present. MCH (RBC) [Entitic mass] 29.9 pg 27.0-32.0 [facility] Work Phone: [phone] Nucleated RBC/100 WBC (Bld) [Ratio] 0 % 0-5 [facility] Work Phone: [phone] MCHC Auto (RBC) [Mass/Vol]on 02-07-2022 MCHC (RBC) [Mass/Vol] 31.9 g/dL 32-36 [facility] Work Phone: [phone] Mucus LM Ql (Urine sed)on Mucus Ql (Urine sed) 0 SEEN /hpf [facility] Work Phone: [phone] Nitrite Test strip Ql (U)on 02-07-2022 Nitrite Ql (U) Negative Negative [facility] Work Phone: No Panel Informationon 02-07 Estimated Creatinine Clearance Calc 42.33 ml/min [facility] Work Phone: [phone] Estimated GFR (MDRD) Amer 70 mL/min >60 [facility] Work Phone: Comment on above: GFR Calc Estimated GFR (MDRD) Non-Af Amer 57 mL/min >60 [facility] Work Phone: Comment on above: Non- GFR Calc Troponin I High Sensitivity 7 pg/mL 3.0-54.0 [facility] Work Phone: Comment on above: Please Note: New [place]iane t Units and Gender Specific Reference Ranges. For more information see Policy Stat Procedure [place]arr High Sensitivity Troponin (TNIH) and attachments. Platelets bldon 02-07-2022 Platelets (Bld) [#/Vol] 223 10*3/uL 150-450 [facility] Work Phone: [phone] Protein Test strip Ql (U)on 02-07-2022 Protein Ql (U) 15 mg/dl Negative [facility] Work Phone: [phone] Serum or plasma albumin chula urement (mass/volume)on 02-07-2022 Albumin [Mass/Vol] 3.1 g/dL 3.2-5.0 [facility] Work Phone: [phone] Serum or plasma albumin/glob ulin mass ratioon 02-07-2022 Albumin/Globulin [Mass ratio] 1.0 {ratio} 0.9-2.4 [facility] Work Phone: [phone] Serum or plasma calcium chula urement (mass/volume)on 02-07-2022 Calcium [Mass/Vol] 9.2 mg/dL 8.5-10.1 [facility] Work Phone: Serum or plasma creatinine m easurement (mass/volume)on 02-07-2022 Creatinine [Mass/Vol] 1.02 mg/dL 0.55-1.02 [facility] Work Phone: Comment on above: The validity of the calculated GFR & GFRAA in patients over 70 years has not been determined. Clinical correlation is essential. Serum or plasma urea nitroge n measurement (mass/volume)on 02-07-2022 Urea nitrogen [Mass/Vol] 21 mg/dL 7-18 [facility] Work Phone: Squamous epithelial cells de tection in urine sediment by light microscopyon 02-07-2022 Epithelial cells.squamous LM Ql (Urine sed) 0-5 SEEN /hpf 5-10 [facility] Work Phone: Thin prep Papanicolaou smear with manual screeningon 02-07-2022 Thin prep Papanicolaou smear with manual screening 12 U/L 15-37 [facility] Work Phone: Thin prep Papanicolaou smear with manual screening 6 5-15 [facility] Work Phone: Urine blood detectionon 01-25 RBC Ql (U) Negative Negative [facility] Work Phone: RBC Ql (U) 0 SEEN /hpf 0-5 [facility] Work Phone: Urine clarityon 02-07-2022 Clarity (U) Clear Clear [facility] Work Phone: Urine color determinationon 02-07-2022 Color (U) Yellow Yellow [facility] Work Phone: Urine glucose detectionon Glucose Ql (U) Normal mg/dl Normal [facility] Work Phone: Urine leukocyte esterase det ection by dipstickon 02-07-2022 Leukocyte esterase Test strip Ql (U) 500 /ul Negative [facility] Work Phone: Urine pHon 02-07-2022 pH (U) 5.0 [pH] 5.0 - 8.0 [facility] Work Phone: Urine sediment bacteria coun t by microscopy (number/high power field)on 02-07-2022 Bacteria LM.HPF (Urine sed) [#/Area] 3 /[HPF] None Seen [facility] Work Phone: Urine specific gravity measu rementon 02-07-2022 Specific gravity (U) [Rel density] 1.020 1.002-1.030 [facility] Work Phone: Urobilinogen Auto test strip Ql (U)on 02-07-2022 Urobilinogen Ql (U) Normal mg/dl Normal [facility] Work Phone: Laboratory - Hematology and Cell countson 12-24-2021 HbA1c (Bld) [Mass fraction] 5.9 % 4.2-6.3 [facility] Work Phone: Glucose Glucometer (BldC) [M ass/Vol]on 11-20-2021 Glucose [Mass/Vol] 191 mg/dL 74-106 [facility] Work Phone: Comment on above: MANAGEMENT OF PATIEN T CARE PER NURSING PROTOCOL Absolute lymphocyte counton 11-17-2021 Lymphocytes Auto (Unsp spec) [#/Vol] 1.46 10*3/uL 0.83-4.51 [facility] Work Phone: Basophil percentageon 2021 Basophils/100 WBC (Bld) 0.6 % 0-1 [facility] Work Phone: Chloride [Moles/Vol] 110 mmol/L 98-107 [facility] Work Phone: Eosinophils/100 WBC (Bld) 1.4 % 0-5 [facility] Work Phone: Glucose [Mass/Vol] 168 mg/dL 74-106 [facility] Work Phone: Comment on above: Fasting Glucose resu lt greater than or equal to 126 mg/dL suggests DIABETES MELLITUS per A.D.A. criteria. Neutrophils (Bld) [#/Vol] 11.4 10*3/uL 2.0-7.7 [facility] Work Phone: Neutrophils/100 WBC (Bld) 80.8 % 47-70 [facility] Work Phone: Potassium [Moles/Vol] 3.8 mmol/L 3.5-5.1 [facility] Work Phone: Sodium [Moles/Vol] 138 mmol/L 136-145 [facility] Work Phone: WBC (Bld) [#/Vol] 14.1 10*3/uL 4.4-11.0 [facility] Work Phone: [phone] Lactate [Moles/Vol] 1.0 mmol/L 0.4-2.0 [facility] Work Phone: Blood erythrocytes count (nu mber/volume)on 11-17-2021 RBC (Bld) [#/Vol] 3.25 10*6/uL 4.2-5.4 [facility] Work Phone: Blood hemoglobin measurement (mass/volume)on 11-17-2021 Hemoglobin (Bld) [Mass/Vol] 9.1 g/dL 12.0-15.0 [facility] Work Phone: Blood lymphocytes/100 leukoc yteson 11-17-2021 Lymphocytes/100 WBC (Bld) 10.4 % 19-41 [facility] Work Phone: Blood manual differential co mment interpretation (narrative result)on 11-17-2021 Manual differential comment Blayne (Bld) [Interp] SCANNED [facility] Work Phone: Blood monocytes/100 leukocyt eson 11-17-2021 Monocytes/100 WBC (Bld) 6.2 % 0-10 [facility] Work Phone: Blood platelet mean volumeon 11-17-2021 Platelet mean volume (Bld) [Entitic vol] 9.5 fL 6.2-12.0 [facility] Work Phone: [phone] Determination of erythrocyte mean corpuscular volume (MCV)on 11-17-2021 MCV (RBC) [Entitic vol] 91.4 fL 81-99 [facility] Work Phone: [phone] Hematocrit Auto (Bld) [Volum e fraction]on 11-17-2021 Hematocrit (Bld) [Volume fraction] 29.7 % 37-47 [facility] Work Phone: [phone] Laboratory - Chemistry and C hemistry - challengeon 11-17-2021 CO2 [Moles/Vol] 22.0 mmol/L 21.0-32.0 [facility] Work Phone: [phone] Urea nitrogen/Creatinine [Mass ratio] 22.3 mg/mg 10-20 [facility] Work Phone: [phone] Laboratory - Hematology and Cell countson 11-17-2021 Anisocytosis Ql (Bld) 1+ [facility] Work Phone: [phone] Erythrocyte distribution width (RBC) [Entitic vol] 65.8 fL 35.1-43.9 [facility] Work Phone: [phone] Erythrocyte distribution width (RBC) [Ratio] 19.6 % 11.6-14.6 [facility] Work Phone: [phone] Immature granulocytes/100 WBC (Bld) 0.600 % 0.0-0.9 [facility] Work Phone: [phone] Comment on above: IG% - Immature Granu locytes (promyelocytes, myelocytes and metamyelocytes) > 1% indicates that a LEFT SHIFT is Present. MCH (RBC) [Entitic mass] 28.0 pg 27.0-32.0 [facility] Work Phone: [phone] Nucleated RBC/100 WBC (Bld) [Ratio] 0 % 0-5 [facility] Work Phone: [phone] MCHC Auto (RBC) [Mass/Vol]on 11-17-2021 MCHC (RBC) [Mass/Vol] 30.6 g/dL 32-36 [facility] Work Phone: Macrocytes detectionon 11-17 Macrocytes Ql (Bld) RARE [facility] Work Phone: No Panel Informationon 11-17 Estimated Creatinine Clearance Calc 36.17 ml/min [facility] Work Phone: [phone] Estimated GFR (MDRD) Amer 57 mL/min >60 [facility] Work Phone: [phone] Comment on above: GFR Calc Estimated GFR (MDRD) Non-Af Amer 47 mL/min >60 [facility] Work Phone: Comment on above: Non- GFR Calc Platelets bldon 11-17-2021 Platelets (Bld) [#/Vol] 213 10*3/uL 150-450 [facility] Work Phone: [phone] Serum or plasma calcium chula urement (mass/volume)on 11-17-2021 Calcium [Mass/Vol] 8.5 mg/dL 8.5-10.1 [facility] Work Phone: Serum or plasma creatinine m easurement (mass/volume)on 11-17-2021 Creatinine [Mass/Vol] 1.21 mg/dL 0.55-1.02 [facility] Work Phone: [phone] Comment on above: The validity of the calculated GFR & GFRAA in patients over 70 years has not been determined. Clinical correlation is essential. Serum or plasma urea nitroge n measurement (mass/volume)on 11-17-2021 Urea nitrogen [Mass/Vol] 27 mg/dL 7-18 [facility] Work Phone: [phone] Thin prep Papanicolaou smear with manual screeningon 11-17-2021 Thin prep Papanicolaou smear with manual screening RARE [facility] Work Phone: [phone] Thin prep Papanicolaou smear with manual screening 6 5-15 [facility] Work Phone: [phone] Absolute lymphocyte counton 11-16-2021 Lymphocytes Auto (Unsp spec) [#/Vol] 1.70 10*3/uL 0.83-4.51 [facility] Work Phone: Basophil percentageon 2021 Basophil percentage >100 SEEN /hpf 0-5 [facility] Work Phone: Basophils/100 WBC (Bld) 0.8 % 0-1 [facility] Work Phone: Bilirubin [Mass/Vol] 0.50 mg/dL 0.20-1.00 [facility] Work Phone: Comment on above: For patients on eltr ombopag therapy, use of Dimension Starr TBIL is not recommended. Chloride [Moles/Vol] 104 mmol/L 98-107 [facility] Work Phone: Eosinophils/100 WBC (Bld) 1.7 % 0-5 [facility] Work Phone: Glucose [Mass/Vol] 166 mg/dL 74-106 [facility] Work Phone: Comment on above: Fasting Glucose resu lt greater than or equal to 126 mg/dL suggests DIABETES MELLITUS per A.D.A. criteria. Lactate [Moles/Vol] 2.5 mmol/L 0.4-2.0 [facility] Work Phone: Comment on above: Critical Result(s) C alled at: 20:31:32 11/16/2021 by: Maira clifton TO MMARTIN2. Results read back by same. Neutrophils (Bld) [#/Vol] 8.4 10*3/uL 2.0-7.7 [facility] Work Phone: Neutrophils/100 WBC (Bld) 74.9 % 47-70 [facility] Work Phone: Potassium [Moles/Vol] 5.0 mmol/L 3.5-5.1 [facility] Work Phone: Comment on above: Slight Hemolysis, Re sult may be falsely increased. Protein [Mass/Vol] 6.8 g/dL 6.4-8.2 [facility] Work Phone: Sodium [Moles/Vol] 133 mmol/L 136-145 [facility] Work Phone: WBC (Bld) [#/Vol] 11.2 10*3/uL 4.4-11.0 [facility] Work Phone: Bilirubin Test strip Ql (U)o n 11-16-2021 Bilirubin Ql (U) Negative Negative [facility] Work Phone: Blood erythrocytes count (nu mber/volume)on 11-16-2021 RBC (Bld) [#/Vol] 4.06 10*6/uL 4.2-5.4 [facility] Work Phone: Blood hemoglobin measurement (mass/volume)on 11-16-2021 Hemoglobin (Bld) [Mass/Vol] 11.5 g/dL 12.0-15.0 [facility] Work Phone: Blood lymphocytes/100 leukoc yteson 11-16-2021 Lymphocytes/100 WBC (Bld) 15.2 % 19-41 [facility] Work Phone: Blood monocytes/100 leukocyt eson 11-16-2021 Monocytes/100 WBC (Bld) 7.0 % 0-10 [facility] Work Phone: Blood platelet mean volumeon 11-16-2021 Platelet mean volume (Bld) [Entitic vol] 9.6 fL 6.2-12.0 [facility] Work Phone: Determination of erythrocyte mean corpuscular volume (MCV)on 11-16-2021 MCV (RBC) [Entitic vol] 89.7 fL 81-99 [facility] Work Phone: Hematocrit Auto (Bld) [Volum e fraction]on 11-16-2021 Hematocrit (Bld) [Volume fraction] 36.4 % 37-47 [facility] Work Phone: Ketones Test strip Ql (U)on 11-16-2021 Ketones Ql (U) 5 mg/dl Negative [facility] Work Phone: Laboratory - Chemistry and C hemistry - challengeon 11-16-2021 ALP [Catalytic activity/Vol] 88 U/L 45-117 [facility] Work Phone: [phone] ALT [Catalytic activity/Vol] 20 U/L 13-56 [facility] Work Phone: [phone] CO2 [Moles/Vol] 21.0 mmol/L 21.0-32.0 [facility] Work Phone: [phone] Globulin (S) [Mass/Vol] 3.4 g/dL 2.2-4.2 [facility] Work Phone: [phone] Urea nitrogen/Creatinine [Mass ratio] 16.7 mg/mg 10-20 [facility] Work Phone: [phone] Laboratory - Hematology and Cell countson 11-16-2021 Erythrocyte distribution width (RBC) [Entitic vol] 64.3 fL 35.1-43.9 [facility] Work Phone: [phone] Erythrocyte distribution width (RBC) [Ratio] 19.7 % 11.6-14.6 [facility] Work Phone: [phone] Immature granulocytes/100 WBC (Bld) 0.400 % 0.0-0.9 [facility] Work Phone: [phone] Comment on above: IG% - Immature Granu locytes (promyelocytes, myelocytes and metamyelocytes) > 1% indicates that a LEFT SHIFT is Present. MCH (RBC) [Entitic mass] 28.3 pg 27.0-32.0 [facility] Work Phone: [phone] Nucleated RBC/100 WBC (Bld) [Ratio] 0 % 0-5 [facility] Work Phone: [phone] MCHC Auto (RBC) [Mass/Vol]on 11-16-2021 MCHC (RBC) [Mass/Vol] 31.6 g/dL 32-36 [facility] Work Phone: [phone] Mucus LM Ql (Urine sed)on Mucus Ql (Urine sed) 0 SEEN /hpf [facility] Work Phone: [phone] Nitrite Test strip Ql (U)on 11-16-2021 Nitrite Ql (U) Negative Negative [facility] Work Phone: No Panel Informationon 11-16 Estimated Creatinine Clearance Calc 31.64 ml/min [facility] Work Phone: [phone] Estimated GFR (MDRD) Amer 52 mL/min >60 [facility] Work Phone: [phone] Comment on above: GFR Calc Estimated GFR (MDRD) Non-Af Amer 43 mL/min >60 [facility] Work Phone: [phone] Comment on above: Non- GFR Calc Troponin I High Sensitivity 9 pg/mL 3.0-54.0 [facility] Work Phone: [phone] Comment on above: Please Note: New Viviane t Units and Gender Specific Reference Ranges. For more information see Policy Stat Procedure Starr High Sensitivity Troponin (TNIH) and attachments. Platelets bldon 11-16-2021 Platelets (Bld) [#/Vol] 266 10*3/uL 150-450 [facility] Work Phone: [phone] Protein Test strip Ql (U)on 11-16-2021 Protein Ql (U) 30 mg/dl Negative [facility] Work Phone: [phone] Serum or plasma albumin chula urement (mass/volume)on 11-16-2021 Albumin [Mass/Vol] 3.4 g/dL 3.2-5.0 [facility] Work Phone: [phone] Serum or plasma albumin/glob ulin mass ratioon 11-16-2021 Albumin/Globulin [Mass ratio] 1.0 {ratio} 0.9-2.4 [facility] Work Phone: [phone] Serum or plasma calcium chula urement (mass/volume)on 11-16-2021 Calcium [Mass/Vol] 9.8 mg/dL 8.5-10.1 [facility] Work Phone: [phone] Serum or plasma creatinine m easurement (mass/volume)on 11-16-2021 Creatinine [Mass/Vol] 1.32 mg/dL 0.55-1.02 [facility] Work Phone: [phone] Comment on above: The validity of the calculated GFR & GFRAA in patients over 70 years has not been determined. Clinical correlation is essential. Serum or plasma urea nitroge n measurement (mass/volume)on 11-16-2021 Urea nitrogen [Mass/Vol] 22 mg/dL 7-18 [facility] Work Phone: Squamous epithelial cells de tection in urine sediment by light microscopyon 11-16-2021 Epithelial cells.squamous LM Ql (Urine sed) 0-5 SEEN /hpf 5-10 [facility] Work Phone: Thin prep Papanicolaou smear with manual screeningon 11-16-2021 Thin prep Papanicolaou smear with manual screening 24 U/L 15-37 [facility] Work Phone: Comment on above: Slight Hemolysis, Re sult may be falsely increased. Thin prep Papanicolaou smear with manual screening 8 5-15 [facility] Work Phone: Urine blood detectionon 10-26 RBC Ql (U) 150 /ul Negative [facility] Work Phone: RBC Ql (U) 0 SEEN /hpf 0-5 [facility] Work Phone: [phone] Urine clarityon 11-16-2021 Clarity (U) Cloudy Clear [facility] Work Phone: Urine color determinationon 11-16-2021 Color (U) Yellow Yellow [facility] Work Phone: Urine glucose detectionon Glucose Ql (U) Normal mg/dl Normal [facility] Work Phone: Urine leukocyte esterase det ection by dipstickon 11-16-2021 Leukocyte esterase Test strip Ql (U) 500 /ul Negative [facility] Work Phone: [phone] Urine pHon 11-16-2021 pH (U) 5.0 [pH] 5.0 - 8.0 [facility] Work Phone: [phone] Urine sediment bacteria coun t by microscopy (number/high power field)on 11-16-2021 Bacteria LM.HPF (Urine sed) [#/Area] 0 /[HPF] None Seen [facility] Work Phone: Urine specific gravity measu rementon 11-16-2021 Specific gravity (U) [Rel density] 1.020 1.002-1.030 [facility] Work Phone: Urobilinogen Auto test strip Ql (U)on 11-16-2021 Urobilinogen Ql (U) Normal mg/dl Normal [facility]: Absolute lymphocyte counton 08-21-2021 Lymphocytes Auto (Unsp spec) [#/Vol] 1.62 10*3/uL 0.83-4.51 [facility] Work Phone: Basophil percentageon 2021 Basophil percentage 136 mg/dL 74-106 [facility] Work Phone: Basophil percentage 6.3 g/dL 6.4-8.2 [facility] Work Phone: Basophil percentage 0.20 mg/dL 0.20-1.00 [facility] Work Phone: Basophil percentage 138 mmol/L 136-145 [facility] Work Phone: Basophil percentage 3.9 mmol/L 3.5-5.1 [facility] Work Phone: Basophil percentage 107 mmol/L 98-107 [facility] Work Phone: Basophils (Bld) [#/Vol] 4.6 10*3/uL 4.4-11.0 [facility] Work Phone: Basophils (Bld) [#/Vol] 2.1 10*3/uL 2.0-7.7 [facility] Work Phone: Basophils/100 WBC (Bld) 45.0 % 47-70 [facility] Work Phone: Basophils/100 WBC (Bld) 4.6 % 0-5 [facility] Work Phone: Basophils/100 WBC (Bld) 1.7 % 0-1 [facility] Work Phone: Bilirubin [Mass/Vol] 0.20 mg/dL 0.20-1.00 [facility] Work Phone: Comment on above: For patients on eltr ombopag therapy, use of Dimension Starr TBIL is not recommended. Chloride [Moles/Vol] 107 mmol/L 98-107 [facility] Work Phone: Eosinophils/100 WBC (Bld) 4.6 % 0-5 [facility] Work Phone: Glucose [Mass/Vol] 136 mg/dL 74-106 [facility] Work Phone: Comment on above: Fasting Glucose resu lt greater than or equal to 126 mg/dL suggests DIABETES MELLITUS per A.D.A. criteria. Neutrophils (Bld) [#/Vol] 2.1 10*3/uL 2.0-7.7 [facility] Work Phone: Neutrophils/100 WBC (Bld) 45.0 % 47-70 [facility] Work Phone: Potassium [Moles/Vol] 3.9 mmol/L 3.5-5.1 [facility] Work Phone: Protein [Mass/Vol] 6.3 g/dL 6.4-8.2 [facility] Work Phone: Sodium [Moles/Vol] 138 mmol/L 136-145 [facility] Work Phone: WBC (Bld) [#/Vol] 4.6 10*3/uL 4.4-11.0 [facility] Work Phone: Basophil percentage 5-10 SEEN /hpf 0-5 [facility] Work Phone: Bilirubin Test strip Ql (U)o n 08-21-2021 Bilirubin Ql (U) Negative Negative [facility] Work Phone: Blood erythrocytes count (nu mber/volume)on 08-21-2021 RBC (Bld) [#/Vol] 4.08 10*6/uL 4.2-5.4 [facility] Work Phone: Blood hemoglobin measurement (mass/volume)on 08-21-2021 Hemoglobin (Bld) [Mass/Vol] 11.6 g/dL 12.0-15.0 [facility] Work Phone: Blood lymphocytes/100 leukoc yteson 08-21-2021 Lymphocytes/100 WBC (Bld) 35.1 % 19-41 [facility] Work Phone: [phone] Blood monocytes/100 leukocyt eson 08-21-2021 Monocytes/100 WBC (Bld) 13.4 % 0-10 [facility] Work Phone: [phone] Blood platelet mean volumeon 08-21-2021 Platelet mean volume (Bld) [Entitic vol] 9.7 fL 6.2-12.0 [facility] Work Phone: [phone] Determination of erythrocyte mean corpuscular volume (MCV)on 08-21-2021 MCV (RBC) [Entitic vol] 88.7 fL 81-99 [facility] Work Phone: [phone] Hematocrit Auto (Bld) [Volum e fraction]on 08-21-2021 Hematocrit (Bld) [Volume fraction] 36.2 % 37-47 [facility] Work Phone: [phone] Ketones Test strip Ql (U)on 08-21-2021 Ketones Ql (U) Negative Negative [facility] Work Phone: [phone] Laboratory - Chemistry and C hemistry - challengeon 08-21-2021 ALP [Catalytic activity/Vol] 76 U/L 45-117 [facility] Work Phone: [phone] ALT [Catalytic activity/Vol] 16 U/L 13-56 [facility] Work Phone: [phone] CO2 [Moles/Vol] 26.0 mmol/L 21.0-32.0 [facility] Work Phone: [phone] Globulin (S) [Mass/Vol] 3.2 g/dL 2.2-4.2 [facility] Work Phone: [phone] Urea nitrogen/Creatinine [Mass ratio] 17.6 mg/mg 10-20 [facility] Work Phone: [phone] Laboratory - Hematology and Cell countson 08-21-2021 Erythrocyte distribution width (RBC) [Entitic vol] 52.4 fL 35.1-43.9 [facility] Work Phone: [phone] Erythrocyte distribution width (RBC) [Ratio] 16.0 % 11.6-14.6 [facility] Work Phone: [phone] Immature granulocytes/100 WBC (Bld) 0.200 % 0.0-0.9 [facility] Work Phone: [phone] Comment on above: IG% - Immature Granu locytes (promyelocytes, myelocytes and metamyelocytes) > 1% indicates that a LEFT SHIFT is Present. MCH (RBC) [Entitic mass] 28.4 pg 27.0-32.0 [facility] Work Phone: [phone] Nucleated RBC/100 WBC (Bld) [Ratio] 0 % 0-5 [facility] Work Phone: [phone] MCHC Auto (RBC) [Mass/Vol]on 08-21-2021 MCHC (RBC) [Mass/Vol] 32.0 g/dL 32-36 [facility] Work Phone: [phone] Mucus LM Ql (Urine sed)on Mucus Ql (Urine sed) 0 SEEN /hpf [facility] Work Phone: [phone] Nitrite Test strip Ql (U)on 08-21-2021 Nitrite Ql (U) Negative Negative [facility] Work Phone: [phone] Panel Informationon 08-21 Estimated Creatinine Clearance Calc 62.24 ml/min [facility] Work Phone: [phone] Estimated GFR (MDRD) Amer 93 mL/min >60 [facility] Work Phone: [phone] Comment on above: GFR Calc Estimated GFR (MDRD) Non-Af Amer 76 mL/min >60 [facility] Work Phone: [phone] Comment on above: Non- GFR Calc 28.4 pg 27.0-32.0 [facility] Work Phone: [phone] 16.0 % 11.6-14.6 [facility] Work Phone: [phone] 52.4 fl 35.1-43.9 [facility] Work Phone: [phone] 0.200 % 0.0-0.9 [facility] Work Phone: [phone] 0 % 0-5 [facility] Work Phone: [phone] 76 mL/min >60 [facility] Work Phone: [phone] 93 mL/min >60 [facility] Work Phone: [phone] 62.24 ml/min [facility] Work Phone: [phone] 17.6 RATIO 10-20 [facility] Work Phone: [phone] 3.2 g/dL 2.2-4.2 [facility] Work Phone: [phone] 76 U/L 45-117 [facility] Work Phone: [phone] 16 U/L 13-56 [facility] Work Phone: [phone] 26.0 mmol/L 21.0-32.0 [facility] Work Phone: [phone] Platelets bldon 08-21-2021 Platelets (Bld) [#/Vol] 211 10*3/uL 150-450 [facility] Work Phone: [phone] Protein Test strip Ql (U)on 08-21-2021 Protein Ql (U) Negative Negative [facility] Work Phone: [phone] Serum or plasma albumin chula urement (mass/volume)on 08-21-2021 Albumin [Mass/Vol] 3.1 g/dL 3.2-5.0 [facility] Work Phone: [phone] Serum or plasma albumin/glob ulin mass ratioon 08-21-2021 Albumin/Globulin [Mass ratio] 1.0 {ratio} 0.9-2.4 [facility] Work Phone: [phone] Serum or plasma calcium chula urement (mass/volume)on 08-21-2021 Calcium [Mass/Vol] 9.9 mg/dL 8.5-10.1 [facility] Work Phone: Serum or plasma creatinine m easurement (mass/volume)on 08-21-2021 Creatinine [Mass/Vol] 0.80 mg/dL 0.55-1.02 [facility] Work Phone: Comment on above: The validity of the calculated GFR & GFRAA in patients over 70 years has not been determined. Clinical correlation is essential. Serum or plasma urea nitroge n measurement (mass/volume)on 08-21-2021 Urea nitrogen [Mass/Vol] 14 mg/dL 7-18 [facility] Work Phone: Squamous epithelial cells de tection in urine sediment by light microscopyon 08-21-2021 Epithelial cells.squamous LM Ql (Urine sed) 5-10 SEEN /hpf 5-10 [facility] Work Phone: Thin prep Papanicolaou smear with manual screeningon 08-21-2021 Thin prep Papanicolaou smear with manual screening 13 U/L 15-37 [facility] Work Phone: Thin prep Papanicolaou smear with manual screening 5 5-15 [facility] Work Phone: Urine blood detectionon 07-27 RBC Ql (U) 10 /ul Negative [facility] Work Phone: RBC Ql (U) 0 SEEN /hpf 0-5 [facility] Work Phone: Urine clarityon 08-21-2021 Clarity (U) Sl. Cloudy Clear [facility] Work Phone: Urine color determinationon 08-21-2021 Color (U) Yellow Yellow [facility] Work Phone: [phone] Urine glucose detectionon Glucose Ql (U) Normal mg/dl Normal [facility] Work Phone: Urine leukocyte esterase det ection by dipstickon 08-21-2021 Leukocyte esterase Test strip Ql (U) 500 /ul Negative [facility] Work Phone: Urine pHon 08-21-2021 pH (U) 6.0 [pH] 5.0 - 8.0 [facility] Work Phone: Urine sediment bacteria coun t by microscopy (number/high power field)on 08-21-2021 Bacteria LM.HPF (Urine sed) [#/Area] RARE /hpf None Seen [facility] Work Phone: Urine specific gravity measu rementon 08-21-2021 Specific gravity (U) [Rel density] 1.010 1.002-1.030 [facility] Work Phone: Urobilinogen Auto test strip Ql (U)on 08-21-2021 Urobilinogen Ql (U) Normal mg/dl Normal [facility] Work Phone: Basophil percentageon 2021 Basophil percentage 289 mg/dL 74-106 [facility] Work Phone: Basophil percentage 134 mmol/L 136-145 [facility] Work Phone: Basophil percentage 5.0 mmol/L 3.5-5.1 [facility] Work Phone: Basophil percentage 103 mmol/L 98-107 [facility] Work Phone: Chloride [Moles/Vol] 103 mmol/L 98-107 [facility] Work Phone: Glucose [Mass/Vol] 289 mg/dL 74-106 [facility] Work Phone: Comment on above: Glucose result great er than or equal to 200 mg/dLsuggests DIABETES MELLITUS per A.D.A. criteria. Potassium [Moles/Vol] 5.0 mmol/L 3.5-5.1 [facility] Work Phone: Sodium [Moles/Vol] 134 mmol/L 136-145 [facility] Work Phone: Laboratory - Chemistry and C hemistry - challengeon 07-03-2021 CO2 [Moles/Vol] 24.0 mmol/L 21.0-32.0 [facility] Work Phone: Urea nitrogen/Creatinine [Mass ratio] 21.2 mg/mg 10- [facility] Work Phone: [phone] Laboratory - Hematology and Cell countson 07-03-2021 HbA1c (Bld) [Mass fraction] 8.6 % [facility] Work Phone: No Panel Informationon 07-03 8.6 % [facility] Work Phone: [phone] Estimated GFR (MDRD) Amer 62 mL/min >60 [facility] Work Phone: [phone] Comment on above: GFR Calc Estimated GFR (MDRD) Non-Af Amer 51 mL/min >60 [facility] Work Phone: [phone] Comment on above: Non- GFR Calc 51 mL/min >60 [facility] Work Phone: mL/min >60 [facility] Work Phone: [phone] 21.2 RATIO 02-13 [facility] Work Phone: [phone] 24.0 mmol/L 21.0-32.0 [facility] Work Phone: [phone] Serum or plasma calcium chula urement (mass/volume)on 07-03-2021 Calcium [Mass/Vol] 11.0 mg/dL 8.5-10.1 [facility] Work Phone: Serum or plasma creatinine m easurement (mass/volume)on 07-03-2021 Creatinine [Mass/Vol] 1.13 mg/dL 0.55-1.02 [facility] Work Phone: Comment on above: The validity of the calculated GFR & GFRAA in patients over 70 years has not been determined. Clinical correlation is essential. Serum or plasma urea nitroge n measurement (mass/volume)on 07-03-2021 Urea nitrogen [Mass/Vol] 24 mg/dL 7-18 [facility] Work Phone: Thin prep Papanicolaou smear with manual screeningon 07-03-2021 Thin prep Papanicolaou smear with manual screening 7 5-15 [facility] Work Phone: Basophil percentageon 2021 Basophil percentage 289 mg/dL 74-106 [facility] Work Phone: Basophil percentage 133 mmol/L 136-145 [facility] Work Phone: Basophil percentage 5.2 mmol/L 3.5-5.1 [facility]: Basophil percentage 103 mmol/L 98-107 [facility] Work Phone: Chloride [Moles/Vol] 103 mmol/L 98-107 [facility] Work Phone: Glucose [Mass/Vol] 289 mg/dL 74-106 [facility] Work Phone: Comment on above: Glucose result great er than or equal to 200 mg/dLsuggests DIABETES MELLITUS per A.D.A. criteria. Potassium [Moles/Vol] 5.2 mmol/L 3.5-5.1 [facility] Work Phone: Sodium [Moles/Vol] 133 mmol/L 136-145 [facility] Work Phone: Iron measurement (mass/mass) on 06-25-2021 Iron (Unsp spec) [Mass/Mass] 57 ug/dL 50-170 [facility] Work Phone: Laboratory - Chemistry and C hemistry - challengeon 06-25-2021 CO2 [Moles/Vol] 24.0 mmol/L 21.0-32.0 [facility] Work Phone: Cobalamin (Vitamin B12) [Mass/Vol] 272 pg/mL 211-911 [facility] [facility] Work Phone: Urea nitrogen/Creatinine [Mass ratio] 29.3 mg/mg 10-20 [facility] Work Phone: No Panel Informationon 06-25 Estimated GFR (MDRD) Amer 75 mL/min >60 [facility] Work Phone: Comment on above: GFR Calc Estimated GFR (MDRD) Non-Af Amer 62 mL/min >60 [facility] Work Phone: [phone] Comment on above: Non- GFR Calc Thyroid Stimulating Hormone (TSH) 0.52 uIU/mL 0.358-3.74 [facility] Work Phone: [phone] Total Iron Binding Capacity 501 ug/dL 250-450 [facility] Work Phone: [phone] 62 mL/min >60 [facility] Work Phone: [phone] 75 mL/min >60 [facility] Work Phone: [phone] RATIO 10-20 [facility] Work Phone: [phone] 24.0 mmol/L 21.0-32.0 [facility] Work Phone: [phone] 0.52 uIU/mL 0.358-3.74 [facility] Work Phone: [phone] pg/mL 211-911 [facility] Work Phone: [phone] ug/dL 250-450 [facility] Work Phone: [phone] Serum or plasma calcium chula urement (mass/volume)on 06-25-2021 Calcium [Mass/Vol] 9.4 mg/dL 8.5-10.1 [facility] Work Phone: Serum or plasma creatinine m easurement (mass/volume)on 06-25-2021 Creatinine [Mass/Vol] 0.96 mg/dL 0.55-1.02 [facility] Work Phone: Comment on above: The validity of the calculated GFR & GFRAA in patients over 70 years has not been determined. Clinical correlation is essential. Serum or plasma ferritin sarah surement (mass/volume)on 06-25-2021 Ferritin [Mass/Vol] 12 ng/mL 8-252 [facility] Work Phone: Serum or plasma folate measu rement (mass/volume)on 06-25-2021 Folate [Mass/Vol] 6.70 ng/mL 3.1-55.4 [facility] Work Phone: Serum or plasma iron saturat ion measurement (mass fraction)on 06-25-2021 Iron saturation [Mass fraction] 11.4 % 15.0-55.0 [facility] Work Phone: Serum or plasma urea nitroge n measurement (mass/volume)on 06-25-2021 Urea nitrogen [Mass/Vol] 28 mg/dL 7-18 [facility] Work Phone: Thin prep Papanicolaou smear with manual screeningon 06-25-2021 Thin prep Papanicolaou smear with manual screening 6 5-15 [facility] Work Phone: Absolute lymphocyte counton 06-22-2021 Lymphocytes Auto (Unsp spec) [#/Vol] 1.27 10*3/uL 0.83-4.51 [facility] Work Phone: Basophil percentageon 2021 Basophil percentage 0-5 SEEN /hpf [facility] Work Phone: Basophil percentage 378 mg/dL 74-106 [facility] Work Phone: Basophil percentage 131 mmol/L 136-145 [facility] Work Phone: Basophil percentage 4.1 mmol/L 3.5-5.1 [facility] Work Phone: Basophil percentage 102 mmol/L 98-107 [facility] Work Phone: Basophils (Bld) [#/Vol] 6.0 10*3/uL 4.4-11.0 [facility] Work Phone: Basophils (Bld) [#/Vol] 3.7 10*3/uL 2.0-7.7 [facility] Work Phone: Basophils/100 WBC (Bld) 62.0 % 47-70 [facility] Work Phone: Basophils/100 WBC (Bld) 4.3 % 0-5 [facility] Work Phone: Basophils/100 WBC (Bld) 1.2 % 0-1 [facility] Work Phone: Chloride [Moles/Vol] 102 mmol/L 98-107 [facility] Work Phone: Eosinophils/100 WBC (Bld) 4.3 % 0-5 [facility] Work Phone: Glucose [Mass/Vol] 378 mg/dL 74-106 [facility] Work Phone: Comment on above: Glucose result great er than or equal to 200 mg/dLsuggests DIABETES MELLITUS per A.D.A. criteria. Neutrophils (Bld) [#/Vol] 3.7 10*3/uL 2.0-7.7 [facility] Work Phone: Neutrophils/100 WBC (Bld) 62.0 % 47-70 [facility] Work Phone: Potassium [Moles/Vol] 4.1 mmol/L 3.5-5.1 [facility] Work [facility]: Sodium [Moles/Vol] 131 mmol/L 136-145 [facility] Work Phone: WBC (Bld) [#/Vol] 6.0 10*3/uL 4.4-11.0 [facility] Work Phone: Bilirubin Test strip Ql (U)o n 06-22-2021 Bilirubin Ql (U) Negative Negative [facility] Work Phone: Blood erythrocytes count (nu mber/volume)on 06-22-2021 RBC (Bld) [#/Vol] 3.35 10*6/uL 4.2-5.4 [facility] Work Phone: Blood hemoglobin measurement (mass/volume)on 06-22-2021 Hemoglobin (Bld) [Mass/Vol] 9.8 g/dL 12.0-15.0 [facility] Work Phone: Blood lymphocytes/100 leukoc yteson 06-22-2021 Lymphocytes/100 WBC (Bld) 21.1 % 19-41 [facility] Work Phone: Blood monocytes/100 leukocyt eson 06-22-2021 Monocytes/100 WBC (Bld) 11.1 % 0-10 [facility] Work Phone: [phone] Blood platelet mean volumeon 06-22-2021 Platelet mean volume (Bld) [Entitic vol] 9.7 fL 6.2-12.0 [facility] Work Phone: [phone] Determination of erythrocyte mean corpuscular volume (MCV)on 06-22-2021 MCV (RBC) [Entitic vol] 88.7 fL 81-99 [facility] Work Phone: [phone] Hematocrit Auto (Bld) [Volum e fraction]on 06-22-2021 Hematocrit (Bld) [Volume fraction] 29.7 % 37-47 [facility] Work Phone: [phone] Ketones Test strip Ql (U)on 06-22-2021 Ketones Ql (U) Negative Negative [facility] Work Phone: Laboratory - Chemistry and C hemistry - challengeon 06-22-2021 CO2 [Moles/Vol] 24.0 mmol/L 21.0-32.0 [facility] Work Phone: [phone] Lipase [Catalytic activity/Vol] 131 U/L 73-393 [facility] Work Phone: [phone] Urea nitrogen/Creatinine [Mass ratio] 25.0 mg/mg 10-20 [facility] Work Phone: [phone] Laboratory - Hematology and Cell countson 06-22-2021 Erythrocyte distribution width (RBC) [Entitic vol] 44.5 fL 35.1-43.9 [facility] Work Phone: [phone] Erythrocyte distribution width (RBC) [Ratio] 13.7 % 11.6-14.6 [facility] Work Phone: [phone] Immature granulocytes/100 WBC (Bld) 0.300 % 0.0-0.9 [facility] Work Phone: [phone] Comment on above: IG% - Immature Granu locytes (promyelocytes, myelocytes and metamyelocytes) > 1% indicates that a LEFT SHIFT is Present. MCH (RBC) [Entitic mass] 29.3 pg 27.0-32.0 [facility] Work Phone: [phone] Nucleated RBC/100 WBC (Bld) [Ratio] 0 % 0-5 [facility] Work Phone: [phone] MCHC Auto (RBC) [Mass/Vol]on 06-22-2021 MCHC (RBC) [Mass/Vol] 33.0 g/dL 32-36 [facility] Work Phone: [phone] Mucus LM Ql (Urine sed)on Mucus Ql (Urine sed) 0 SEEN /hpf [facility] Work Phone: [phone] Nitrite Test strip Ql (U)on 06-22-2021 Nitrite Ql (U) Negative Negative [facility] Work Phone: [phone] Panel Informationon 06-22 Troponin I High Sensitivity 9 pg/mL 3.0-54.0 [facility] Work Phone: [phone] Comment on above: Please Note: New Viviane t Units and Gender Specific Reference Ranges. For more information see Policy Stat Procedure Starr High Sensitivity Troponin (TNIH) and attachments. 9 pg/mL 3.0-54.0 [facility] Work Phone: [phone] Estimated Creatinine Clearance Calc 47.88 ml/min [facility] Work Phone: [phone] Estimated GFR (MDRD) Amer 68 mL/min >60 [facility] Work Phone: [phone] Comment on above: GFR Calc Estimated GFR (MDRD) Non-Af Amer 56 mL/min >60 [facility] Work Phone: [phone] Comment on above: Non- GFR Calc 29.3 pg 27.0-32.0 [facility] Work Phone: [phone] 13.7 % 11.6-14.6 [facility] Work Phone: [phone] 44.5 fl 35.1-43.9 [facility] Work Phone: [phone] 0.300 % 0.0-0.9 [facility] Work Phone: [phone] 0 % 0-5 [facility] Work Phone: [phone] 56 mL/min >60 [facility] Work Phone: [phone] 68 mL/min >60 [facility] Work Phone: [phone] 47.88 ml/min [facility] Work Phone: [phone] 25.0 RATIO 10-20 [facility] Work Phone: [phone] 131 U/L 73-393 [facility] Work Phone: [phone] 24.0 mmol/L 21.0-32.0 [facility] Work Phone: [phone] Platelets bldon 06-22-2021 Platelets (Bld) [#/Vol] 210 10*3/uL 150-450 [facility] Work Phone: Protein Test strip Ql (U)on 06-22-2021 Protein Ql (U) Negative Negative [facility] Work Phone: Serum or plasma calcium chula urement (mass/volume)on 06-22-2021 Calcium [Mass/Vol] 9.1 mg/dL 8.5-10.1 [facility] Work Phone: Serum or plasma creatinine m easurement (mass/volume)on 06-22-2021 Creatinine [Mass/Vol] 1.04 mg/dL 0.55-1.02 [facility] Work Phone: Comment on above: The validity of the calculated GFR & GFRAA in patients over 70 years has not been determined. Clinical correlation is essential. Serum or plasma urea nitroge n measurement (mass/volume)on 06-22-2021 Urea nitrogen [Mass/Vol] 26 mg/dL 7-18 [facility] Work Phone: Squamous epithelial cells de tection in urine sediment by light microscopyon 06-22-2021 Epithelial cells.squamous LM Ql (Urine sed) 0-5 SEEN /hpf [facility] Work Phone: Thin prep Papanicolaou smear with manual screeningon 06-22-2021 Thin prep Papanicolaou smear with manual screening 5 5-15 [facility] Work Phone: Urine blood detectionon 05-29 RBC Ql (U) Negative Negative [facility] Work Phone: [phone] RBC Ql (U) 0 SEEN /hpf [facility] Work Phone: Urine clarityon 06-22-2021 Clarity (U) Sl. Cloudy Clear [facility] Work Phone: [phone] Urine color determinationon 06-22-2021 Color (U) Yellow Yellow [facility] Work Phone: Urine glucose detectionon Glucose Ql (U) 250 mg/dl Normal [facility] Work Phone: [phone] Urine leukocyte esterase det ection by dipstickon 06-22-2021 Leukocyte esterase Test strip Ql (U) 100 /ul Negative [facility] Work Phone: Urine pHon 06-22-2021 pH (U) 6.5 [pH] [facility] Work Phone: Urine sediment bacteria coun t by microscopy (number/high power field)on 06-22-2021 Bacteria LM.HPF (Urine sed) [#/Area] 0 /[HPF] None Seen [facility] Work Phone: Urine specific gravity measu rementon 06-22-2021 Specific gravity (U) [Rel density] 1.015 [facility] Work Phone: Urobilinogen Auto test strip Ql (U)on 06-22-2021 Urobilinogen Ql (U) Normal mg/dl Normal [facility] Work Phone: .Auto Diffon 06-15-2021 Basophil, Absolute 0.10 10 3/mcL Normal 0.00-0.19 [facility] ([place]) Comment on above: Performed By: #### C BC, ADIFF, ANEU, BMP, GFR, TROPHS #### [place] [address] [address] Basophils/100 WBC (Bld) 1.2 % Normal 0.0-2.5 [facility] ([place]) Comment on above: Performed By: #### C BC, ADIFF, ANEU, BMP, GFR, TROPHS #### [address] [address] Eosinophil, Absolute 0.20 10 3/mcL Normal 0.00-0.40 A [facility] ([place]) Comment on above: Performed By: #### C BC, ADIFF, ANEU, BMP, GFR, TROPHS #### [address] [address] Eosinophils/100 WBC (Bld) 3.7 % Normal 0.0-7.0 [facility] ([place]) Comment on above: Performed By: #### C BC, ADIFF, ANEU, BMP, GFR, TROPHS #### [address] [address] Lymphocyte, Absolute 1.60 10 3/mcL Normal 0.77-3.85 A [facility] ([place]) Comment on above: Performed By: #### C BC, ADIFF, ANEU, BMP, GFR, TROPHS #### [address] [address] Lymphocytes/100 WBC (Bld) 25.2 % Normal 10.0-50.0 [facility] ([place]) Comment on above: Performed By: #### C BC, ADIFF, ANEU, BMP, GFR, TROPHS #### [address] [address] Monocyte, Absolute 0.70 10 3/mcL Normal 0.15-1.00 [facility] ([place]) Comment on above: Performed By: #### C BC, ADIFF, ANEU, BMP, GFR, TROPHS #### [address] [address] Monocytes/100 WBC (Bld) 10.4 % Normal 1.7-13.0 [facility] ([place]) Comment on above: Performed By: #### C BC, ADIFF, ANEU, BMP, GFR, TROPHS #### [address] [address] Neutrophils/100 WBC (Bld) 59.5 % Normal 37.0-80.0 [facility] ([place]) Comment on above: Performed By: #### C BC, ADIFF, ANEU, BMP, GFR, TROPHS #### [address] [address] .GFRon 06-15-2021 GFR 65 ml/min/1.73sqm Normal [facility] ([place]) Comment on above: Result Comment: GFR Population mean for , Non- Americans Ages 20-29 = 116 mL/min/1.73 sq.m. Ages 30-39 = 107 mL/min/1.73 sq.m. Ages 40-49 = 99 mL/min/1.73 sq.m. Ages 50-59 = 93 mL/min/1.73 sq.m. Ages 60-69 = 85 mL/min/1.73 sq.m. Ages 70+ = 75 mL/min/1.73 sq.m. Chronic Kidney Disease: Less than 60 mL/min/1.73 square meters End Stage Renal Disease: Less than 15 mL/min/1.73 square meters Performed By: #### C BC, ADIFF, ANEU, BMP, GFR, TROPHS #### [address] [address] GFR Non- 54 ml/min/1.73sqm Normal [facility] ([place]) Comment on above: Result Comment: GFR Population mean for , Non- Americans Ages 20-29 = 116 mL/min/1.73 sq.m. Ages 30-39 = 107 mL/min/1.73 sq.m. Ages 40-49 = 99 mL/min/1.73 sq.m. Ages 50-59 = 93 mL/min/1.73 sq.m. Ages 60-69 = 85 mL/min/1.73 sq.m. Ages 70+ = 75 mL/min/1.73 sq.m. Chronic Kidney Disease: Less than 60 mL/min/1.73 square meters End Stage Renal Disease: Less than 15 mL/min/1.73 square meters Performed By: #### C BC, ADIFF, ANEU, BMP, GFR, TROPHS #### [address] [address] .NEUABSon 06-15-2021 Neutrophil, Absolute 3.90 10 3/mcL Normal 2.85-6.16 A [facility] ([place]) Comment on above: Performed By: #### C BC, ADIFF, ANEU, BMP, GFR, TROPHS #### [address] [address] BMPon 06-15-2021 BUN/Creatinine Ratio 29 ratio High 7-27 [facility] ([place]) Comment on above: Performed By: #### C BC, ADIFF, ANEU, BMP, GFR, TROPHS #### [address] [address] Calcium [Mass/Vol] 9.3 mg/dL Normal 8.4-10.2 [facility] ([place]) Comment on above: Performed By: #### C BC, ADIFF, ANEU, BMP, GFR, TROPHS #### [address] [address] Chloride [Moles/Vol] 104 mmol/L Normal 98-107 [facility] ([place]) Comment on above: Performed By: #### C BC, ADIFF, ANEU, BMP, GFR, TROPHS #### [address] [address] CO2 [Moles/Vol] 24 mmol/L Normal 23-31 [facility] ([place]) Comment on above: Performed By: #### C BC, ADIFF, ANEU, BMP, GFR, TROPHS #### [address] [address] Creatinine [Mass/Vol] 1.03 mg/dL High 0.55-1.02 [facility] ([place]) Comment on above: Performed By: #### C BC, ADIFF, ANEU, BMP, GFR, TROPHS #### [address] [address] Electrolyte Balance 13.0 mEq/L Normal 4.0-15.0 [facility] ([place]) Comment on above: Performed By: #### C BC, ADIFF, ANEU, BMP, GFR, TROPHS #### [address] [address] Glucose [Mass/Vol] 239 mg/dL High 80-115 [facility] ([place]) Comment on above: Performed By: #### C BC, ADIFF, ANEU, BMP, GFR, TROPHS #### [address] [address] Potassium [Moles/Vol] 4.8 mmol/L Normal 3.5-5.1 [facility] ([place]) Comment on above: Performed By: #### C BC, ADIFF, ANEU, BMP, GFR, TROPHS #### [address] [address] Sodium [Moles/Vol] 141 mmol/L Normal 136-145 [facility] ([place]) Comment on above: Performed By: #### C BC, ADIFF, ANEU, BMP, GFR, TROPHS #### [address] [address] Urea nitrogen [Mass/Vol] 30 mg/dL High 7-18 [facility] ([place]) Comment on above: Performed By: #### C BC, ADIFF, ANEU, BMP, GFR, TROPHS #### [address] [address] CBCon 06-15-2021 Erythrocyte distribution width (RBC) [Ratio] 14.7 % High 11.5-14.5 [facility] ([place]) Comment on above: Performed By: #### C BC, ADIFF, ANEU, BMP, GFR, TROPHS #### [address] [address] Hematocrit (Bld) [Volume fraction] 32.7 % Low 37.0-47.0 [facility] ([place]) Comment on above: Performed By: #### C BC, ADIFF, ANEU, BMP, GFR, TROPHS #### [address] [address] Hgb 10.6 G/dL Low 12.0-16.0 [facility] ([place]) Comment on above: Performed By: #### C BC, ADIFF, ANEU, BMP, GFR, TROPHS #### [address] [address] MCH (RBC) [Entitic mass] 28.2 pg Normal 27.0-31.2 [facility] ([place]) Comment on above: Performed By: #### C BC, ADIFF, ANEU, BMP, GFR, TROPHS #### [address] [address] MCHC 32.3 G/dL Low 33.0-37.0 [facility] ([place]) Comment on above: Performed By: #### C BC, ADIFF, ANEU, BMP, GFR, TROPHS #### [address] [address] MCV (RBC) [Entitic vol] 87.2 fL Normal 80.0-94.0 [facility] ([place]) Comment on above: Performed By: #### C BC, ADIFF, ANEU, BMP, GFR, TROPHS #### [address] [address] Platelet 250 10 3/mcL Normal 130-400 [facility] ([place]) Comment on above: Performed By: #### C BC, ADIFF, ANEU, BMP, GFR, TROPHS #### [address] [address] Platelet mean volume (Bld) [Entitic vol] 8.0 fL Normal 7.4-10.4 [facility] ([place]) Comment on above: Performed By: #### C BC, ADIFF, ANEU, BMP, GFR, TROPHS #### [address] [address] RBC 3.74 10 6/mcL Low 4.20-5.40 [facility] ([place]) Comment on above: Performed By: #### C BC, ADIFF, ANEU, BMP, GFR, TROPHS #### [address] [address] WBC 6.50 10 3/mcL Normal 4.60-10.80 [facility] ([place]) Comment on above: Performed By: #### C BC, ADIFF, ANEU, BMP, GFR, TROPHS #### [place] [address] [place] [id number] LABORATORYOrdered By: Hawa Yanes on 06-15-2021 Basophil, Absolute 0.10 103/mcL Invalid Interpretation Code 0.00 - 0.19 10^3/mcL AO Auto Heme SS Basophils/100 WBC (Bld) 1.2 % Invalid Interpretation Code 0.0 - 2.5 % AO Auto Heme SS Calcium [Mass/Vol] 9.3 mg/dL Invalid Interpretation Code 8.4 - 10.2 mg/dL AO ADM SS Chloride [Moles/Vol] 104 mmol/L Invalid Interpretation Code 98 - 107 mmol/L AO ADM SS CO2 [Moles/Vol] 24 mmol/L Invalid Interpretation Code 23 - 31 mmol/L AO ADM SS Creatinine [Mass/Vol] 1.03 mg/dL Invalid Interpretation Code 0.55 - 1.02 mg/dL AO ADM SS Electrolyte Balance 13.0 mEq/L Invalid Interpretation Code 4.0 - 15.0 mEq/L AO ADM SS Eosinophil, Absolute 0.20 103/mcL Invalid Interpretation Code 0.00 - 0.40 10^3/mcL AO Auto Heme SS Eosinophils/100 WBC (Bld) 3.7 % Invalid Interpretation Code 0.0 - 7.0 % AO Auto Heme SS Erythrocyte distribution width (RBC) [Ratio] 14.7 % Invalid Interpretation Code 11.5 - 14.5 % AO Auto Heme SS Glucose [Mass/Vol] 239 mg/dL Invalid Interpretation Code 80 - 115 mg/dL AO ADM SS Hematocrit (Bld) [Volume fraction] 32.7 % Invalid Interpretation Code 37.0 - 47.0 % AO Auto Heme SS Hemoglobin (Bld) [Mass/Vol] 10.6 G/dL Invalid Interpretation Code 12.0 - 16.0 G/dL AO Auto Heme SS Lymphocyte, Absolute 1.60 103/mcL Invalid Interpretation Code 0.77 - 3.85 10^3/mcL AO Auto Heme SS Lymphocytes/100 WBC (Bld) 25.2 % Invalid Interpretation Code 10.0 - 50.0 % AO Auto Heme SS MCH (RBC) [Entitic mass] 28.2 pg Invalid Interpretation Code 27.0 - 31.2 pg AO Auto Heme SS MCHC (RBC) [Mass/Vol] 32.3 G/dL Invalid Interpretation Code 33.0 - 37.0 G/dL AO Auto Heme SS MCV (RBC) [Entitic vol] 87.2 fL Invalid Interpretation Code 80.0 - 94.0 fL AO Auto Heme SS Monocyte, Absolute 0.70 103/mcL Invalid Interpretation Code 0.15 - 1.00 10^3/mcL AO Auto Heme SS Monocytes/100 WBC (Bld) 10.4 % Invalid Interpretation Code 1.7 - 13.0 % AO Auto Heme SS Neutrophil, Absolute 3.90 103/mcL Invalid Interpretation Code 2.85 - 6.16 10^3/mcL AO Auto Heme SS Neutrophils/100 WBC (Bld) 59.5 % Invalid Interpretation Code 37.0 - 80.0 % AO Auto Heme SS Platelet mean volume (Bld) [Entitic vol] 8.0 fL Invalid Interpretation Code 7.4 - 10.4 fL AO Auto Heme SS Platelets (Bld) [#/Vol] 250 103/mcL Invalid Interpretation Code 130 - 400 10^3/mcL AO Auto Heme SS Potassium [Moles/Vol] 4.8 mmol/L Invalid Interpretation Code 3.5 - 5.1 mmol/L AO ADM SS RBC (Bld) [#/Vol] 3.74 106/mcL Invalid Interpretation Code 4.20 - 5.40 10^6/mcL AO Auto Heme SS Sodium [Moles/Vol] 141 mmol/L Invalid Interpretation Code 136 - 145 mmol/L AO ADM SS Troponin I.cardiac DL <= 0.01 ng/mL [Mass/Vol] 9.3 ng/L Invalid Interpretation Code 0.0 - 51.4 ng/L AO ADM SS Urea nitrogen [Mass/Vol] 30 mg/dL Invalid Interpretation Code 7 - 18 mg/dL AO ADM SS Urea nitrogen/Creatinine [Mass ratio] 29 ratio Invalid Interpretation Code 7 - 27 ratio AO ADM SS WBC (Bld) [#/Vol] 6.50 103/mcL Invalid Interpretation Code 4.60 - 10.80 10^3/mcL AO Auto Heme SS LABORATORYOrdered By: SYSTEM SYSTEM on 06-15-2021 GFR 65 ml/min/1.73sqm Invalid Interpretation Code AO Chemistry S GFR Non- 54 ml/min/1.73sqm Invalid Interpretation Code AO Chemistry S TROPHSon 06-15-2021 Troponin I High Sensitivity 9.3 ng/L Normal 0.0-51.4 [facility] ([place]) Comment on above: Performed By: #### C BC, ADIFF, ANEU, BMP, GFR, TROPHS #### [place] [id number] [place], [place] [address] XR CHEST 1 VIEWon 06-15-2021 XR CHEST 1 VIEW ORIGINAL EXAMINATION: ONE XRAY VIEW OF THE CHEST06/15/2021 8:25 pm COMPARISON: None. HISTORY: ORDERING SYSTEM PROVIDED HISTORY: Reason for Exam: chest pain. FINDINGS: Lines and tubes: None. Mediastinum: Cardiomediastinal contours are normal. Coronary artery atherosclerosis/stent. No pneumomediastinum. Lungs & Pleura: No focal consolidation. Perihilar interstitial opacities are noted which may reflect bronchovascular crowding. No appreciable pleural effusion. No pneumothorax. Bones: Bony thorax is unremarkable. IMPRESSION: No acute radiographic cardiopulmonary findings. I have personally reviewed the images of this examination and agree with the resident's findings and interpretation. Interpreted by: Ruperto Woods DO Preliminary Report By: Carlos A Liu Electronically signed By Ruperto Woods DO Dictated Date: 06/15/2021 8:33:53 PM Prelim Date: 06/15/2021 8:35:31 PM Sign Date: 06/15/2021 8:54:53 PM Ordering Provider: VERITO Car [facility] ([place]) Absolute lymphocyte counton 05-16-2021 Lymphocytes Auto (Unsp spec) [#/Vol] 1.37 10*3/uL 0.83-4.51 [facility] Work Phone: [phone] Bacteria identified Cx Nom ( U)on 05-16-2021 Culture, urine Positive [facility] Work Phone: Basophil percentageon 2021 Basophil percentage 0-5 SEEN /hpf [facility] Work Phone: Basophil percentage 284 mg/dL 74-106 [facility] Work Phone: Basophil percentage 134 mmol/L 136-145 [facility] Work Phone: Basophil percentage 4.4 mmol/L 3.5-5.1 [facility] Work Phone: Basophil percentage 102 mmol/L 98-107 [facility] Work Phone: Basophils (Bld) [#/Vol] 6.6 10*3/uL 4.4-11.0 [facility] Work Phone: Basophils (Bld) [#/Vol] 4.3 10*3/uL 2.0-7.7 [facility] Work Phone: Basophils/100 WBC (Bld) 65.4 % 47-70 [facility] Work Phone: [phone] Basophils/100 WBC (Bld) 3.8 % 0-5 [facility] Work Phone: [phone] Basophils/100 WBC (Bld) 0.9 % 0-1 [facility] Work Phone: Bilirubin Test strip Ql (U)o n 05-16-2021 Bilirubin Ql (U) Negative Negative [facility] Work Phone: Blood erythrocytes count (nu mber/volume)on 05-16-2021 RBC (Bld) [#/Vol] 3.97 10*6/uL 4.2-5.4 [facility] Work Phone: Blood hemoglobin measurement (mass/volume)on 05-16-2021 Hemoglobin (Bld) [Mass/Vol] 11.3 g/dL 12.0-15.0 [facility] Work Phone: Blood lymphocytes/100 leukoc yteson 05-16-2021 Lymphocytes/100 WBC (Bld) 20.6 % 19-41 [facility] Work Phone: Blood monocytes/100 leukocyt eson 05-16-2021 Monocytes/100 WBC (Bld) 9.0 % 0-10 [facility] Work Phone: Blood platelet mean volumeon 05-16-2021 Platelet mean volume (Bld) [Entitic vol] 9.5 fL 6.2-12.0 [facility] Work Phone: Determination of erythrocyte mean corpuscular volume (MCV)on 05-16-2021 MCV (RBC) [Entitic vol] 92.4 fL 81-99 [facility] Work Phone: [phone] Hematocrit Auto (Bld) [Volum e fraction]on 05-16-2021 Hematocrit (Bld) [Volume fraction] 36.7 % 37-47 [facility] Work Phone: [phone] Ketones Test strip Ql (U)on 05-16-2021 Ketones Ql (U) Negative Negative [facility] Work Phone: [phone] MCHC Auto (RBC) [Mass/Vol]on 05-16-2021 MCHC (RBC) [Mass/Vol] 30.8 g/dL 32-36 [facility] Work Phone: [phone] Mucus LM Ql (Urine sed)on Mucus Ql (Urine sed) 0 SEEN /hpf [facility] Work Phone: [phone] Nitrite Test strip Ql (U)on 05-16-2021 Nitrite Ql (U) Negative Negative [facility] Work Phone: [phone] No Panel Informationon 05-16 12 pg/mL 3.0-54.0 [facility] Work Phone: [phone] 28.5 pg 27.0-32.0 [facility] Work Phone: [phone] 15.8 % 11.6-14.6 [facility] Work Phone: [phone] 53.1 fl 35.1-43.9 [facility] Work Phone: [phone] 0.300 % 0.0-0.9 [facility] Work Phone: [phone] 0 % 0-5 [facility] Work Phone: [phone] 64 mL/min >60 [facility] Work Phone: [phone] 77 mL/min >60 [facility] Work Phone: [phone] 53.54 ml/min [facility] Work Phone: [phone] 24.7 RATIO 10-20 [facility] Work Phone: 26.0 mmol/L 21.0-32.0 [facility] Work Phone: Platelets bldon 05-16-2021 Platelets (Bld) [#/Vol] 236 10*3/uL 150-450 [facility] Work Phone: Protein Test strip Ql (U)on 05-16-2021 Protein Ql (U) 15 mg/dl Negative [facility] Work Phone: Serum or plasma calcium chula urement (mass/volume)on 05-16-2021 Calcium [Mass/Vol] 9.9 mg/dL 8.5-10.1 [facility] Work Phone: Serum or plasma creatinine m easurement (mass/volume)on 05-16-2021 Creatinine [Mass/Vol] 0.93 mg/dL 0.55-1.02 [facility] Work Phone: Serum or plasma urea nitroge n measurement (mass/volume)on 05-16-2021 Urea nitrogen [Mass/Vol] 23 mg/dL 7-18 [facility] Work Phone: Squamous epithelial cells de tection in urine sediment by light microscopyon 05-16-2021 Epithelial cells.squamous LM Ql (Urine sed) 0-5 SEEN /hpf [facility] Work Phone: Thin prep Papanicolaou smear with manual screeningon 05-16-2021 Thin prep Papanicolaou smear with manual screening 6 5-15 [facility] Work Phone: Urine blood detectionon 04-28 RBC Ql (U) Negative Negative [facility] Work Phone: RBC Ql (U) 0 SEEN /hpf [facility] Work Phone: Urine clarityon 05-16-2021 Clarity (U) Sl. Cloudy Clear [facility] Work Phone: Urine color determinationon 05-16-2021 Color (U) Yellow Yellow [facility] Work Phone: Urine glucose detectionon Glucose Ql (U) 100 mg/dl Normal [facility] Work Phone: Urine leukocyte esterase det ection by dipstickon 05-16-2021 Leukocyte esterase Test strip Ql (U) 25 /ul Negative [facility] Work Phone: Urine pHon 05-16-2021 pH (U) 6.0 [pH] [facility] Work Phone: Urine sediment bacteria coun t by microscopy (number/high power field)on 05-16-2021 Bacteria LM.HPF (Urine sed) [#/Area] 1 /[HPF] None Seen [facility] Work Phone: Urine specific gravity measu rementon 05-16-2021 Specific gravity (U) [Rel density] 1.020 [facility] Work Phone: Urobilinogen Auto test strip Ql (U)on 05-16-2021 Urobilinogen Ql (U) Normal mg/dl Normal [facility] Work Phone: Absolute lymphocyte counton 05-11-2021 Lymphocytes Auto (Unsp spec) [#/Vol] 1.35 10*3/uL 0.83-4.51 [facility] Work Phone: Basophil percentageon 2021 Basophil percentage 219 mg/dL 74-106 [facility] Work Phone: Basophil percentage 133 mmol/L 136-145 [facility] Work Phone: Basophil percentage 5.0 mmol/L 3.5-5.1 [facility] Work Phone: Basophil percentage 103 mmol/L 98-107 [facility] Work Phone: Basophils (Bld) [#/Vol] 5.7 10*3/uL 4.4-11.0 [facility] Work Phone: Basophils (Bld) [#/Vol] 3.4 10*3/uL 2.0-7.7 [facility] Work Phone: Basophils/100 WBC (Bld) 59.7 % 47-70 [facility] Work Phone: [phone] Basophils/100 WBC (Bld) 5.3 % 0-5 [facility] Work Phone: [phone] Basophils/100 WBC (Bld) 1.2 % 0-1 [facility] Work Phone: Blood erythrocytes count (nu mber/volume)on 05-11-2021 RBC (Bld) [#/Vol] 3.69 10*6/uL 4.2-5.4 [facility] Work Phone: Blood hemoglobin measurement (mass/volume)on 05-11-2021 Hemoglobin (Bld) [Mass/Vol] 10.8 g/dL 12.0-15.0 [facility] Work Phone: Blood lymphocytes/100 leukoc yteson 05-11-2021 Lymphocytes/100 WBC (Bld) 23.6 % 19-41 [facility] Work Phone: [phone] Blood monocytes/100 leukocyt eson 05-11-2021 Monocytes/100 WBC (Bld) 10.0 % 0-10 [facility] Work Phone: Blood platelet mean volumeon 05-11-2021 Platelet mean volume (Bld) [Entitic vol] 10.9 fL 6.2-12.0 [facility] Work Phone: Determination of erythrocyte mean corpuscular volume (MCV)on 05-11-2021 MCV (RBC) [Entitic vol] 91.6 fL 81-99 [facility] Work Phone: Hematocrit Auto (Bld) [Volum e fraction]on 05-11-2021 Hematocrit (Bld) [Volume fraction] 33.8 % 37-47 [facility] Work Phone: MCHC Auto (RBC) [Mass/Vol]on 05-11-2021 MCHC (RBC) [Mass/Vol] 32.0 g/dL 32-36 [facility] Work Phone: No Panel Informationon 05-11 29.3 pg 27.0-32.0 [facility] Work Phone: [phone] 16.2 % 11.6-14.6 [facility] Work Phone: [phone] 54.2 fl 35.1-43.9 [facility] Work Phone: [phone] 0.200 % 0.0-0.9 [facility] Work Phone: [phone] 0 % 0-5 [facility] Work Phone: [phone] 86 mL/min >60 [facility] Work Phone: [phone] mL/min >60 [facility] Work Phone: [phone] 49.80 ml/min [facility] Work Phone: [phone] 26.4 RATIO 10-20 [facility] Work Phone: [phone] 12 pg/mL 3.0-54.0 [facility] Work Phone: [phone] 26.0 mmol/L 21.0-32.0 [facility] Work Phone: [phone] Platelets bldon 05-11-2021 Platelets (Bld) [#/Vol] 198 10*3/uL 150-450 [facility] Work Phone: [phone] Serum or plasma calcium chula urement (mass/volume)on 05-11-2021 Calcium [Mass/Vol] 9.2 mg/dL 8.5-10.1 [facility] Work Phone: [phone] Serum or plasma creatinine m easurement (mass/volume)on 05-11-2021 Creatinine [Mass/Vol] 0.72 mg/dL 0.55-1.02 [facility] Work Phone: [phone] Serum or plasma urea nitroge n measurement (mass/volume)on 05-11-2021 Urea nitrogen [Mass/Vol] 19 mg/dL 7-18 [facility] Work Phone: [phone] Thin prep Papanicolaou smear with manual screeningon 05-11-2021 Thin prep Papanicolaou smear with manual screening 4 5-15 [facility] Work Phone: Absolute lymphocyte counton 05-08-2021 Lymphocytes Auto (Unsp spec) [#/Vol] 2.07 10*3/uL 0.83-4.51 [facility] Work Phone: Amorphous sediment detection in urine sediment by light microscopyon 05-08-2021 Amorphous sediment LM Ql (Urine sed) 1+ [facility] Work Phone: Basophil percentageon 2021 Basophil percentage 257 mg/dL 74-106 [facility] Work Phone: Basophil percentage 5.6 g/dL 6.4-8.2 [facility] Work Phone: Basophil percentage 0.30 mg/dL 0.20-1.00 [facility] Work Phone: Basophil percentage 110 mg/dL <200 [facility] Work Phone: Basophil percentage 128 mg/dL [facility] Work Phone: Basophil percentage 136 mmol/L 136-145 [facility] Work Phone: Basophil percentage 3.6 mmol/L 3.5-5.1 [facility] Work Phone: Basophil percentage 105 mmol/L 98-107 [facility] Work Phone: Basophils (Bld) [#/Vol] 7.1 10*3/uL 4.4-11.0 [facility] Work Phone: Basophils (Bld) [#/Vol] 4.0 10*3/uL 2.0-7.7 [facility] Work Phone: Basophils/100 WBC (Bld) 56.7 % 47-70 [facility] Work Phone: Basophils/100 WBC (Bld) 4.2 % 0-5 [facility] Work Phone: Basophils/100 WBC (Bld) 1.0 % 0-1 [facility] Work Phone: Basophil percentage 10-25 SEEN /hpf [facility] Work Phone: Bilirubin Test strip Ql (U)o n 05-08-2021 Bilirubin Ql (U) Negative Negative [facility] Work Phone: Blood erythrocytes count (nu mber/volume)on 05-08-2021 RBC (Bld) [#/Vol] 3.74 10*6/uL 4.2-5.4 [facility] Work Phone: Blood hemoglobin measurement (mass/volume)on 05-08-2021 Hemoglobin (Bld) [Mass/Vol] 10.6 g/dL 12.0-15.0 [facility] Work Phone: Blood lymphocytes/100 leukoc yteson 05-08-2021 Lymphocytes/100 WBC (Bld) 29.1 % 19-41 [facility] Work Phone: Blood monocytes/100 leukocyt eson 05-08-2021 Monocytes/100 WBC (Bld) 8.7 % 0-10 [facility] Work Phone: Blood platelet mean volumeon 05-08-2021 Platelet mean volume (Bld) [Entitic vol] 9.6 fL 6.2-12.0 [facility] Work Phone: Determination of erythrocyte mean corpuscular volume (MCV)on 05-08-2021 MCV (RBC) [Entitic vol] 92.5 fL 81-99 [facility] Work Phone: Glucose Glucometer (BldC) [M ass/Vol]on 05-08-2021 Glucose [Mass/Vol] 263 mg/dL 70-110 [facility] Work Phone: Hematocrit Auto (Bld) [Volum e fraction]on 05-08-2021 Hematocrit (Bld) [Volume fraction] 34.6 % 37-47 [facility] Work Phone: Ketones Test strip Ql (U)on 05-08-2021 Ketones Ql (U) Negative Negative [facility] Work Phone: [phone] MCHC Auto (RBC) [Mass/Vol]on 05-08-2021 MCHC (RBC) [Mass/Vol] 30.6 g/dL 32-36 [facility] Work Phone: Mucus LM Ql (Urine sed)on Mucus Ql (Urine sed) 0 SEEN /hpf [facility] Work Phone: Nitrite Test strip Ql (U)on 05-08-2021 Nitrite Ql (U) Negative Negative [facility] Work Phone: No Panel Informationon 05-08 109 mL/min >60 [facility] Work Phone: [phone] 132 mL/min >60 [facility] Work Phone: [phone] 49.80 ml/min [facility] Work Phone: 29.1 RATIO 10-20 [facility] Work Phone: 2.9 g/dL 2.2-4.2 [facility] Work Phone: 15 pg/mL 3.0-54.0 [facility] Work Phone: 71 U/L 45-117 [facility] Work Phone: 14 U/L 13-56 [facility] Work Phone: 25.0 mmol/L 21.0-32.0 [facility] Work Phone: 28.3 pg 27.0-32.0 [facility] Work Phone: 16.6 % 11.6-14.6 [facility] Work Phone: 56.6 fl 35.1-43.9 [facility] Work Phone: 0.300 % 0.0-0.9 [facility] Work Phone: 0 % 0-5 [facility] Work Phone: Platelets bldon 05-08-2021 Platelets (Bld) [#/Vol] 223 10*3/uL 150-450 [facility] Work Phone: Protein Test strip Ql (U)on 05-08-2021 Protein Ql (U) 15 mg/dl Negative [facility] Work Phone: [phone] Serum or plasma albumin chula urement (mass/volume)on 05-08-2021 Albumin [Mass/Vol] 2.7 g/dL 3.2-5.0 [facility] Work Phone: [phone] Serum or plasma albumin/glob ulin mass ratioon 05-08-2021 Albumin/Globulin [Mass ratio] 0.9 {ratio} 0.9-2.4 [facility] Work Phone: [phone] Serum or plasma calcium chula urement (mass/volume)on 05-08-2021 Calcium [Mass/Vol] 8.6 mg/dL 8.5-10.1 [facility] Work Phone: [phone] Serum or plasma cholesterol in HDL measurement (mass/volume)on 05-08-2021 Cholesterol in HDL [Mass/Vol] 60 mg/dL [facility] Work Phone: [phone] Serum or plasma cholesterol in VLDL measurement (mass/volume)on 05-08-2021 Cholesterol in VLDL [Mass/Vol] 26 mg/dL 5-40 [facility] Work Phone: [phone] Serum or plasma creatinine m easurement (mass/volume)on 05-08-2021 Creatinine [Mass/Vol] 0.58 mg/dL 0.55-1.02 [facility] Work Phone: [phone] Serum or plasma low density lipoprotein (LDL) cholesterol measurement (mass/volume)on 05-08-2021 Cholesterol in LDL [Mass/Vol] 24 mg/dL 0-130 [facility] Work Phone: [phone] Serum or plasma urea nitroge n measurement (mass/volume)on 05-08-2021 Urea nitrogen [Mass/Vol] 17 mg/dL 7-18 [facility] Work Phone: [phone] Squamous epithelial cells de tection in urine sediment by light microscopyon 05-08-2021 Epithelial cells.squamous LM Ql (Urine sed) 0-5 SEEN /hpf [facility] Work Phone: Thin prep Papanicolaou smear with manual screeningon 05-08-2021 Thin prep Papanicolaou smear with manual screening 13 U/L 15-37 [facility] Work Phone: Thin prep Papanicolaou smear with manual screening 6 5-15 [facility] Work Phone: Urine blood detectionon 04-27 RBC Ql (U) Negative Negative [facility] Work Phone: RBC Ql (U) 0-5 SEEN /hpf [facility] Work Phone: Urine clarityon 05-08-2021 Clarity (U) Sl. Cloudy Clear [facility] Work Phone: Urine color determinationon 05-08-2021 Color (U) Yellow Yellow [facility] Work Phone: Urine glucose detectionon Glucose Ql (U) Normal mg/dl Normal [facility] Work Phone: Urine leukocyte esterase det ection by dipstickon 05-08-2021 Leukocyte esterase Test strip Ql (U) 100 /ul Negative [facility] Work Phone: Urine pHon 05-08-2021 pH (U) 7.0 [pH] [facility] Work Phone: Urine sediment bacteria coun t by microscopy (number/high power field)on 05-08-2021 Bacteria LM.HPF (Urine sed) [#/Area] 3 /[HPF] None Seen [facility] Work Phone: Urine specific gravity measu rementon 05-08-2021 Specific gravity (U) [Rel density] 1.010 [facility] Work Phone: Urobilinogen Auto test strip Ql (U)on 05-08-2021 Urobilinogen Ql (U) Normal mg/dl Normal [facility] Work Phone: Direct bilirubinon Bilirubin.direct [Mass/Vol] 0.07 mg/dL 0.00-0.30 [facility] Work Phone: No Panel Informationon 05-07 104 U/L 73-393 [facility] Work Phone: 1.8 mg/dL 1.6-2.6 [facility] Work Phone: Absolute lymphocyte counton 04-19-2021 Lymphocytes Auto (Unsp spec) [#/Vol] 1.78 10*3/uL 0.83-4.51 [facility] Work Phone: Basophil percentageon 2020 Basophil percentage 0-5 SEEN /hpf [facility] Work Phone: Basophil percentage 205 mg/dL 74-106 [facility] Work Phone: Basophil percentage 132 mmol/L 136-145 [facility] Work Phone: Basophil percentage 5.1 mmol/L 3.5-5.1 [facility] Work Phone: Basophil percentage 103 mmol/L 98-107 [facility] Work Phone: Basophils (Bld) [#/Vol] 9.6 10*3/uL 4.4-11.0 [facility] Work Phone: Basophils (Bld) [#/Vol] 6.2 10*3/uL 2.0-7.7 [facility] Work Phone: Basophils/100 WBC (Bld) 6.0 % 0-5 [facility] Work Phone: Bilirubin Test strip Ql (U)o n 04-19-2021 Bilirubin Ql (U) Negative Negative [facility] Work Phone: Blood erythrocytes count (nu mber/volume)on 04-19-2021 RBC (Bld) [#/Vol] 4.41 10*6/uL 4.2-5.4 [facility] Work Phone: Blood hemoglobin measurement (mass/volume)on 04-19-2021 Hemoglobin (Bld) [Mass/Vol] 12.5 g/dL 12.0-15.0 [facility] Work Phone: Blood lymphocytes/100 leukoc yteson 04-19-2021 Lymphocytes/100 WBC (Bld) 18.6 % 19-41 [facility] Work Phone: Blood monocytes/100 leukocyt eson 04-19-2021 Monocytes/100 WBC (Bld) 9.0 % 0-10 [facility] Work Phone: Blood platelet mean volumeon 04-19-2021 Platelet mean volume (Bld) [Entitic vol] 10.0 fL 6.2-12.0 [facility] Work Phone: Determination of erythrocyte mean corpuscular volume (MCV)on 04-19-2021 MCV (RBC) [Entitic vol] 89.1 fL 81-99 [facility] Work Phone: Hematocrit Auto (Bld) [Volum e fraction]on 04-19-2021 Hematocrit (Bld) [Volume fraction] 39.3 % 37-47 [facility] Work Phone: Ketones Test strip Ql (U)on 04-19-2021 Ketones Ql (U) Negative Negative [facility] Work Phone: Laboratory - Hematology and Cell countson 04-19-2021 Basophils/100 WBC (Unsp spec) 1.3 % 0-1 [facility] Work Phone: MCHC Auto (RBC) [Mass/Vol]on 04-19-2021 MCHC (RBC) [Mass/Vol] 31.8 g/dL 32-36 [facility] Work Phone: Mucus LM Ql (Urine sed)on Mucus Ql (Urine sed) 0 SEEN /hpf [facility] Work Phone: Nitrite Test strip Ql (U)on 04-19-2021 Nitrite Ql (U) Negative Negative [facility] Work Phone: No Panel Informationon 04-19 55 mL/min >60 [facility] Work Phone: 67 mL/min >60 [facility] Work Phone: [phone] 45.08 ml/min [facility] Work Phone: [phone] 19.8 RATIO 10-20 [facility] Work Phone: [phone] 10 pg/mL 3.0-54.0 [facility] Work Phone: [phone] 25.0 mmol/L 21.0-32.0 [facility] Work Phone: [phone] 28.3 pg 27.0-32.0 [facility] Work Phone: [phone] 17.4 % 11.6-14.6 [facility] Work Phone: [phone] 57.1 fl 35.1-43.9 [facility] Work Phone: [phone] 64.6 % 47-70 [facility] Work Phone: [phone] 0.500 % 0.0-0.9 [facility] Work Phone: [phone] 0 % 0-5 [facility] Work Phone: [phone] Platelets bldon 04-19-2021 Platelets (Bld) [#/Vol] 274 10*3/uL 150-450 [facility] Work Phone: [phone] Protein Test strip Ql (U)on 04-19-2021 Protein Ql (U) 15 mg/dl Negative [facility] Work Phone: [phone] Serum or plasma calcium chula urement (mass/volume)on 04-19-2021 Calcium [Mass/Vol] 10.0 mg/dL 8.5-10.1 [facility] Work Phone: [phone] Serum or plasma creatinine m easurement (mass/volume)on 04-19-2021 Creatinine [Mass/Vol] 1.06 mg/dL 0.55-1.02 [facility] Work Phone: [phone] Serum or plasma urea nitroge n measurement (mass/volume)on 04-19-2021 Urea nitrogen [Mass/Vol] 21 mg/dL 7-18 [facility] Work Phone: [phone] Squamous epithelial cells de tection in urine sediment by light microscopyon 04-19-2021 Epithelial cells.squamous LM Ql (Urine sed) 0-5 SEEN /hpf [facility] Work Phone: [phone] Thin prep Papanicolaou smear with manual screeningon 04-19-2021 Thin prep Papanicolaou smear with manual screening 4 5-15 [facility] Work Phone: Urine blood detectionon 03-28 RBC Ql (U) Negative Negative [facility] Work Phone: [phone] RBC Ql (U) 0 SEEN /hpf [facility] Work Phone: [phone] Urine clarityon 04-19-2021 Clarity (U) Clear Clear [facility] Work Phone: [phone] Urine color determinationon 04-19-2021 Color (U) Yellow Yellow [facility] Work Phone: Urine glucose detectionon Glucose Ql (U) Normal mg/dl Normal [facility] Work Phone: Urine leukocyte esterase det ection by dipstickon 04-19-2021 Leukocyte esterase Test strip Ql (U) 100 /ul Negative [facility] Work Phone: Urine pHon 04-19-2021 pH (U) 5.0 [pH] [facility] Work Phone: Urine sediment bacteria coun t by microscopy (number/high power field)on 04-19-2021 Bacteria LM.HPF (Urine sed) [#/Area] 0 /[HPF] None Seen [facility] Work Phone: Urine specific gravity measu rementon 04-19-2021 Specific gravity (U) [Rel density] 1.015 [facility] Work Phone: Urobilinogen Auto test strip Ql (U)on 04-19-2021 Urobilinogen Ql (U) Normal mg/dl Normal [facility] Work Phone: ANKLE COMPLETE LTon 01-31-20 20 ANKLE COMPLETE LT [address] [address] Patient: ELO GRAY Phone#: : [phone] Age: 64 Gender: F Pt. Type: Out Account: [id number] Location: Ordering: CHRISTA CASTANEDA Exam Date: 01/31/2020/10:51 Family Phys: Charge Code: [id number] Physician: Tunica Order #: [id number] DLP Dose#: PROCEDURE: X-RAY ANKLE COMPLETE LT MIN 3 VIEWS COMPARISON: None. INDICATIONS: Ankle Fracture. FINDINGS: BONES: There is a spiral fracture of the lateral malleolus above the level of the tibiotalar articulation. There is adjacent callus formation, consistent with a subacute fracture. The fracture line is visualized and measures 0.2 cm in thickness. SOFT TISSUES: There is mild overlying soft tissue swelling. EFFUSION: None visible. OTHER: Negative. CONCLUSION: 1. Healing callus formation adjacent to the oblique fracture, consistent with subacute fracture. The fracture line is visualized. Dictated by: Mylene Murry MD on 01/31/2020 at 12:20 Approved by: Mylene Murry MD on 01/31/2020 at 12:22 Normal [facility] EMERGENCY DEPARTMENT REPORTo n 06-04-2018 EMERGENCY [place]MENT [place] [address] [employer] [employer]FORMATION [employer]NAGEMENT EMERGENCY DEPARTMENT REPORT Patient: ELO GRAYTJ M.D. [id number] F Status: DEP ER ED Date of Service: 06/02/18 CHIEF COMPLAINT Reported to be needing medical evaluation. HISTORY OF PRESENT ILLNESS The patient is a 62-year-old white female who presents from [facility] psychiatric facility. The patient just had a recent admission to [facility] for hypothermia, urosepsis. She was discharged from their facility at approximately 1:30 in the morning and was transported to [facility] for inpatient psychiatric treatment for suicidal ideation. Their doctor, upon seeing the patient this morning, reviewed the labs from her admission at [facility] and apparently felt that she needed to be reevaluated from a medical standpoint. The patient presents here. She has no acute complaints. She just tells me that if she can, she is going to go home and eat all of her sleeping pills. She states she is feeling fine otherwise. PAST MEDICAL HISTORY Reviewed from the electronic medical record. It includes coronary artery disease, hypertension, diabetes mellitus, COPD, CHF, psychiatric history. PAST SURGICAL HISTORY None. SOCIAL HISTORY Positive tobacco use. MEDICATIONS Reviewed. Please see MRO. ALLERGIES Iodine, propoxyphene, indomethacin. REVIEW OF SYSTEMS General: No fever or chills. Head: No headache. Neck: No neck pain. Back: No back pain. Cardiac: No chest pain or palpitations. Pulmonary: No shortness of breath or cough. Abdomen: No abdominal pain, nausea or vomiting. Extremities: No edema, no weakness. Neurologic: No numbness or paresthesias. PHYSICAL EXAMINATION General examination reveals a well-developed, well-nourished female resting comfortably. Vital signs: Blood pressure 110/45, temperature 98.6, pulse 67, respirations 18, pulse oximetry 97% room air. Head is normocephalic and atraumatic. Ocular examination reveals pupils to be equal, round and react to light. Sclerae anicteric. Examination of the oropharynx reveals mucous membranes moist. No erythema or exudate, no lesions. Cardiovascular examination reveals normal S1, S2. Regular rate and rhythm. No murmurs, gallops, rubs. Pulmonary examination reveals breath sounds clear to auscultation. No wheezes, rales, rhonchi. Abdomen is soft, positive bowel sounds. No peritoneal signs. Examination of the extremities revealed no cyanosis, clubbing or edema. Neurological examination: The patient alert and oriented x3, no focal deficits appreciated. EMERGENCY DEPARTMENT COURSE I did review her discharge summary, most recent labs, as well as discharge medications from [facility] via the [facility] system. BUN and creatinine were normalized, as she had had some renal insufficiency upon her admission there. Her urine culture grew out E. coli. As she was supposed to be discharged on an additional 5-day course of antibiotic therapy I did not see where that had been done, I gave her a dose of Levaquin here and a prescription for additional doses. At this point otherwise, I do not see, based upon the history and physical or the most recent blood work to have any repeat laboratory evaluation at this point in time. I believe she is appropriate for discharge back to [facility]. IMPRESSION 1. Suicidal ideation. 2. Urinary tract infection. PLAN Discharge. 06/14/18 0630 TJ MEDRANO M.D. cc: TJ MEDRANO M.D. << Signature on File>> Reported By: TJ MEDRANO M.D. Signed By: TJ MEDRANO M.D. Tests performed at: [address] [address] [facility] URINE CULTUREon 01-22-2018 Bacteria identified Cx Nom (U) Specimen source XXX: CLEAN VOIDED MIDSTREAM Performed at [address] [address]Cxxpwpl Cmnt XXX-Imp: NONE Performed at [address] [address]GO Number Ur: >100,000 CFU/mLBacteria identified: ESCHERICHIA COLI ESCHERICHIA COLI 2ND TYPE 51,000-100,000 CFU/mL Performed at [address] [address]: FINAL 01/22/2018 ANTIBIOTIC ANTONIA/INTERPORGANISM: 1 ESCHERICHIA COLI ANTONIA ANTONIA AUGMENTIN <=8/4 SUSCEPTIBLE AMPICILLIN SULBACTAM 16/8 MODERATELY SUSCEPTIBLE NITROFURANTOIN <=32 SUSCEPTIBLE TETRACYCLINE >8 RESISTANT CEFAZOLIN <=8 SUSCEPTIBLE GENTAMICIN <=4 SUSCEPTIBLE TRIMETHOPRIM SULFAMETHOXAZOLE >2/38 RESISTANT CIPROFLOXACIN <=1 SUSCEPTIBLE AMPICILLIN >16 RESISTANT LEVOFLOXACIN <=2 SUSCEPTIBLE PIPERACILLIN/TAZOBACTAM <=16 SUSCEPTIBLE MEROPENEM <=4 SUSCEPTIBLE ANTIBIOTIC ANTONIA/INTERPORGANISM: 2 ESCHERICHIA COLI 2ND TYPE 51,000-100,000 CFU/mL ANTONIA ANTONIA AUGMENTIN <=8/4 SUSCEPTIBLE AMPICILLIN SULBACTAM >16/8 RESISTANT NITROFURANTOIN <=32 SUSCEPTIBLE TETRACYCLINE >8 RESISTANT CEFAZOLIN <=8 SUSCEPTIBLE GENTAMICIN <=4 SUSCEPTIBLE TRIMETHOPRIM SULFAMETHOXAZOLE >2/38 RESISTANT CIPROFLOXACIN <=1 SUSCEPTIBLE AMPICILLIN >16 RESISTANT LEVOFLOXACIN <=2 SUSCEPTIBLE PIPERACILLIN/TAZOBACTAM <=16 SUSCEPTIBLE MEROPENEM <=4 SUSCEPTIBLE [facility] Comment on above: Performed By: #### P TB ####[address] [place] [address] POCT GLUCOSEon 01-21-2018 Glucose mass conc 189 mg/dL High 65-99 [facility] Comment on above: Performed By: #### C JOINTER MACHINE ####[facility] LaboratoryNcke Cdrk[address] [place] [address] Glucose mass conc 277 mg/dL High 65-99 [facility] Comment on above: Performed By: #### C JOINTER MACHINE ####[facility] LaboratoryNcke Fczn[address]475 [place] [address] Glucose mass conc 104 mg/dL High 65-99 [facility] Comment on above: Performed By: #### C JOINTER MACHINE ####[facility] LaboratoryLake Hfot36289 [place] [address] Glucose mass conc 150 mg/dL High 65-99 [facility] Comment on above: Performed By: #### P TB ####[facility] Laboratory[facility] [place] [address] CBC with Diffon 01-20-2018 AB IMMATURE NEUT 0.04 K/UL Normal 0.0-0.1 [facility] Comment on above: Performed By: #### C BCD ####[facility] LaboratoryNcke Irks[address]374 [place] [address] ABS BASO 0.11 K/UL Normal 0.00-0.22 [facility] Comment on above: Performed By: #### C BCD ####[facility] LaboratoryNorth[facility] Center[address] [place] [address] ABS EOS 0.40 K/UL Normal 0-0.45 [facility] Comment on above: Performed By: #### C BCD ####[facility] LaboratoryNcke Vygu59968 [place] [address] ABS NEUTROPHILS 5.64 K/UL Normal 1.8-7.7 [facility] Comment on above: Performed By: #### C BCD ####[facility] LaboratoryNcke Sfwd81924 [place] [address] ABS.NEUT.CALCULATED Normal [facility] Comment on above: Result Comment: 5.64 Performed at [facility] [address] [place] [address] Performed By: #### C BCD ####[facility] LaboratoryLake Kxjb60781 [place] [address] Basophils/100 WBC Auto (Bld) 1.30 % High 0-1 [facility] Comment on above: Performed By: #### C BCD ####[facility] LaboratoryNcke Abcd[address]60 [place] [address] DIFF TYPE AUTO DIFF Normal [facility] Comment on above: Performed By: #### C BCD ####[facility] LaboratoryNcke Jgmi51430 [place] [address] Eosinophils/100 WBC Auto (Bld) 4.60 % High 0-3 [facility] Comment on above: Performed By: #### C BCD ####[facility] LaboratoryNcke Idiu[address]73 [place] [address] Erythrocyte distribution width Auto Ratio (RBC) 15.4 % High 11.7-15.0 [facility] Comment on above: Performed By: #### C BCD ####[facility] LaboratoryCathlamet Xsmo[address] [place] [address] Hematocrit Auto Volume Fraction (Bld) 36.4 % Normal 36-44 [facility] Comment on above: Performed By: #### C BCD ####[facility] LaboratoryNcbob Rjez50803 [place] [address] Hemoglobin mass conc (Bld) 11.3 g/dL Low 12.0-15.0 [facility] Comment on above: Performed By: #### C BCD ####[facility] LaboratoryN[facility] Zhzj[address]322 [place] [address] IMMATURE NEUT % 0.50 % Normal 0.0-1.0 [facility] Comment on above: Performed By: #### C BCD ####[facility] LaboratoryLake Ximt[address]291 [place] [address] Lymphocytes Auto #/vol (Bld) 1.44 10*3/uL Normal 1.2-3.2 [facility] Comment on above: Performed By: #### C BCD ####[facility] LaboratoryLake Crda[address]414 [place] [address] Lymphocytes/100 WBC Auto (Bld) 16.50 % Low 20-40 [facility] Comment on above: Performed By: #### C BCD ####[facility] LaboratoryLake Plks13747 [place] [address] MCH Auto Entitic mass (RBC) 27.0 pg Normal 26-34 [facility] Comment on above: Performed By: #### C BCD ####[facility] LaboratoryLake Ddws33299 [place] [address] MCHC Auto mass conc (RBC) 31.0 % Normal 31-37 [facility] Comment on above: Performed By: #### C BCD ####[facility] LaboratoryLake Fpof[address]114 [place] [address] MCV Auto Entitic volume (RBC) 86.9 fL Normal 80-100 [facility] Comment on above: Performed By: #### C BCD ####[facility] LaboratoryCathlamet Xbho66492 [place] [address] MEAN PLT VOL 10.0 CU Normal 7.0-12.6 [facility] Comment on above: Performed By: #### C BCD ####[facility] LaboratoryNcke Oxpq[address]602 [place] [address] Monocytes Auto #/vol (Bld) 1.09 10*3/uL High 0-0.8 [facility] Comment on above: Performed By: #### C BCD ####[facility] LaboratoryNcke Knkk[address]250 [place] [address] Monocytes/100 WBC Auto (Bld) 12.50 % High 0-8 [facility] Comment on above: Performed By: #### C BCD ####[facility] LaboratoryNcke Znxc46829 [place] [address] Neutrophils/100 WBC Auto (Bld) 64.60 % Normal 50-70 [facility] Comment on above: Performed By: #### C BCD ####[facility] LaboratoryLake Yite21695 [place] [address] NRBC'S 0 /100 WBC Normal 0 [facility] Comment on above: Performed By: #### C BCD ####[facility] LaboratoryLake Tknj20915 [place] [address] Platelets Auto #/vol (Bld) 236 10*3/uL Normal 150-450 [facility] Comment on above: Performed By: #### C BCD ####Main LaboratoryLake Xlir[address]145 [place] [address] RBC Auto #/vol (Bld) 4.19 M/UL Normal 4.0-4.9 [facility] Comment on above: Performed By: #### C BCD ####Main LaboratoryLake Jjfj[address]11 [place] [address] RDW-SD 48.9 FL Normal 37.0-54.0 [facility] Comment on above: Performed By: #### C BCD ####Main LaboratoryLake Qnkd56684 [place] [address] WBC Auto #/vol (Bld) 8.7 10*3/uL Normal 4.5-11.0 [facility] Comment on above: Performed By: #### C BCD ####[facility] LaboratoryLake Lczv07877 [place] [address] COMPREHENSIVE METABOLIC PANE Amarjit 01-20-2018 Albumin mass conc 3.4 g/dL Low 3.5-5.0 [facility] Comment on above: Performed By: #### C JOINTER MACHINE ####[facility] LaboratoryLake Nwtf83559 [place] [address] Albumin/Globulin mass ratio 1.4 {ratio} Low 1.5-3.0 [facility] Comment on above: Performed By: #### C JOINTER MACHINE ####Main LaboratoryLake Vxek[address]116 [place] [address] ALP enzyme act/vol 131 U/L High 35-[address] [facility] Comment on above: Performed By: #### C JOINTER MACHINE ####Main LaboratoryLake Pfvv[address]336 [place] [address] ALT enzyme act/vol 18 U/L Normal 5-40 [facility] Comment on above: Performed By: #### C JOINTER MACHINE ####Main LaboratoryLake Mjxv62577 [place] [address] Anion gap 3 molar conc 13 mmol/L Normal 0-19 [facility] Comment on above: Performed By: #### C JOINTER MACHINE ####[place] [address] [address] AvCenifyannaurora [place] [address] AST enzyme act/vol 15 U/L Normal 5-40 [facility] Comment on above: Performed By: #### C JOINTER MACHINE ####[facility]ke Xfjj11316 [place] [address] Bilirubin mass conc Normal 0.1-1.2 [facility] Comment on above: Result Comment: 0.2L ESS THAN Performed By: #### C JOINTER MACHINE ####[place] [id number] [place]annaurora [place] [address] Calcium mass conc 9.6 mg/dL Normal 8.5-10.4 [facility] Comment on above: Performed By: #### C JOINTER MACHINE ####[place] [id number] [place] [address] Chloride molar conc 99 mmol/L Normal 97-107 [facility] Comment on above: Performed By: #### C JOINTER MACHINE ####[place] [id number] Similar PagesMcCullough[place] [address] CO2 molar conc 22 mmol/L Low 24-31 [facility] Comment on above: Performed By: #### C JOINTER MACHINE ####[facility] CenterMyScienceWork Ssre[address]682 [address] AvMcC[place] [address] Creatinine mass conc 1.0 mg/dL Normal 0.4-1.6 [facility] Comment on above: Performed By: #### C JOINTER MACHINE ####[place] [address] [address] [place] [address] GFR/1.73 sq M.predicted MDRD vol rate/area Normal [facility] Comment on above: Result Comment: 60GF R ml/min/1.73m2 Stage -----90 160-89 230-59 315-29 4<15 5For -Americans, multiply EGFR result by 1.210Calculation not validated for patients under 18 years of age.Performed at [facility] [address] [place] [address] [place] [address] Performed By: #### C JOINTER MACHINE ####[facility] CenterMyScienceWork [place] [address] [place] [address] Globulin Calculated mass conc (S) 2.4 g/dL Normal 1.9-3.7 [facility] Comment on above: Performed By: #### C JOINTER MACHINE ####[facility] LaboratoryL[facility] Kwng25964 [place] [address] Glucose mass conc 124 mg/dL High 65-99 [facility] Comment on above: Performed By: #### C JOINTER MACHINE ####[facility] LaboratoryLake Npnt00285 [place] [address] Potassium molar conc 4.1 mmol/L Normal 3.4-5.1 [facility] Comment on above: Performed By: #### C JOINTER MACHINE ####[facility] LaboratoryLake Epde30725 [place] [address] Protein mass conc 5.8 g/dL Low 5.9-7.9 [facility] Comment on above: Performed By: #### C JOINTER MACHINE ####[facility] LaboratoryL[facility] Zwio55560 [place] [address] Sodium molar conc 134 mmol/L Normal 133-145 [facility] Comment on above: Performed By: #### C JOINTER MACHINE ####[facility] LaboratoryL[facility] Ndco40649 [place] [address] Urea nitrogen mass conc 34 mg/dL High 8-25 [facility] Comment on above: Performed By: #### C JOINTER MACHINE ####[facility] LaboratoryLake Dfkm53191 [place] [address] Urea nitrogen/Creatinine mass ratio 34.0 RATIO High 8-21 [facility] Comment on above: Performed By: #### C JOINTER MACHINE ####[facility] LaboratoryLake Yfho[address]34 [place] [address] HEMOGLOBIN A1con 01-20-2018 Hemoglobin A1c/Hemoglobin.total mass fraction (Bld) High 4.0-6.0 [facility] Comment on above: Result Comment: 6.9H emoglobin A1C levels are related to mean blood glucose during thepreceding 2-3 months. The relationship table below may be used as ageneral guide. Each 1% increase in HGB A1C is a reflection of anincrease in mean glucose of approximately 30 mg/dl.Reference: Diabetes Care, volume 29, supplement 1 2005HGB A1C ................. Approx. Mean Glucose 6% ............................... 120 mg/dl7% ............................... 150 mg/dl8% ............................... 180 mg/dl9% ............................... 210 mg/dl10% ............................... 240 mg/dlPerformed at [address] [address] Performed By: #### P TB ####[address] [address] LIPID PANELon 01-20-2018 CHOL HDL RATIO Normal [facility] Comment on above: Result Comment: 1.9A ccording to the [place] [employer], the goal is to maintainthe total cholesterol/HDL ratio at 5-to-1 or lower with an optimumratio of 3.5-to-1.Performed at [address] [place] [address] Performed By: #### P TB ####[address] [address] Cholesterol in HDL mass conc Normal >50 [facility] Comment on above: Result Comment: 60Na tional Cholesterol Education Program(NCFP)guidelines:<40 mg/dl:Low HDL-cholesterol(major risk factor for CHD)>60 mg/dl:High HDL-cholesterol(negativerisk factor for CHD)HDL-cholesterol is affected by a number of factors,e.g.,smoking,exercise,hormones,sex and age. Performed By: #### P TB ####Main LaboratoryLake Vvty65285 [place] [address] Cholesterol in LDL mass conc 35 mg/dL Low 65-130 [facility] Comment on above: Performed By: #### P TB ####Main LaboratoryLake Fpuv[address]893 [place] [address] Cholesterol mass conc 113 mg/dL Low 133-200 [facility] Comment on above: Performed By: #### P TB ####Main LaboratoryLake Lmzr[address]399 [place] [address] SERUM CLARITY CLEAR [facility] Comment on above: Performed By: #### P TB ####[facility] LaboratoryL[facility] Qzth70934 [place] [address] TRIGLYCERIDE G.B. 90 MG/DL Normal 40-150 [facility] Comment on above: Performed By: #### P TB ####[facility] LaboratoryL[facility] Qfja81499 [place] [address] PT. PREPARATION FASTING Normal [facility] Comment on above: Performed By: #### P TB ####[facility] LaboratoryL[facility] Xtuj[address]563 [place] [address] SERUM COLOR YELLOW [facility] Comment on above: Performed By: #### P TB ####[facility] LaboratoryLake Deiz72426 [place] [address] POCT GLUCOSEon 01-20-2018 Glucose mass conc 153 mg/dL High 65-99 [facility] Comment on above: Performed By: #### P TB ####Main LaboratoryLake Jvxg[address]700 [place] [address] Glucose mass conc 243 mg/dL High 65-99 [facility] Comment on above: Performed By: #### P TB ####Main LaboratoryLake Mggp54917 [place] [address] Glucose mass conc 118 mg/dL High 65-99 [facility] Comment on above: Performed By: #### P TB ####Main LaboratoryLake Tkxb27693 [place] [address] Glucose mass conc 238 mg/dL High 65-99 [facility] Comment on above: Performed By: #### P CGL ####[address] [address] TROPONIN Ton 01-20-2018 Troponin T.cardiac mass conc Normal 0.0-0.1 [facility] Comment on above: Result Comment: 0.01 LESS THANPerformed at [address] [place] [address] Performed By: #### P TB ####[address] [address] Troponin T.cardiac mass conc Normal 0.0-0.1 [facility] Comment on above: Result Comment: 0.01 LESS THANPerformed at [address] [place] [address] Performed By: #### T ROP ####[address] [place] [address] TSHon 01-20-2018 Thyrotropin Qn Normal 0.27-4.20 [facility] Comment on above: Result Comment: 2.54 Performed at [address] [address] Performed By: #### P TB ####[address] [address] CBC with Diffon 01-19-2018 AB IMMATURE NEUT 0.04 K/UL Normal 0.0-0.1 [facility] Comment on above: Performed By: #### C BCD ####[address] [place] [address] ABS BASO 0.11 K/UL Normal 0.00-0.22 [facility] Comment on above: Performed By: #### C BCD ####[place] [address] [place] [address] ABS EOS 0.40 K/UL Normal 0-0.45 [facility] Comment on above: Performed By: #### C BCD ####[address] [address] ABS NEUTROPHILS 4.50 K/UL Normal 1.8-7.7 [facility] Comment on above: Performed By: #### C BCD ####[place] [address] [address] [place] [address] ABS.NEUT.CALCULATED Normal [facility] Comment on above: Result Comment: 4.50 Performed at [facility] [address] [place] [address] [place] [address] Performed By: #### C BCD ####[place] [address] [address] [place] [address] Basophils/100 WBC Auto (Bld) 1.50 % High 0-1 [facility] Comment on above: Performed By: #### C BCD ####[place] [address] [facility] [place] [address] DIFF TYPE AUTO DIFF Normal [facility] Comment on above: Performed By: #### C BCD ####[place] [address] [address] [place] [address] Eosinophils/100 WBC Auto (Bld) 5.40 % High 0-3 [facility] Comment on above: Performed By: #### C BCD ####[place] [address] [facility] [place] [address] Erythrocyte distribution width Auto Ratio (RBC) 15.4 % High 11.7-15.0 [facility] Comment on above: Performed By: #### C BCD ####[place] [address] [address] [place] [address] Hematocrit Auto Volume Fraction (Bld) 38.5 % Normal 36-44 [facility] Comment on above: Performed By: #### C BCD ####[place] [address] [address] [place] [address] Hemoglobin mass conc (Bld) 12.0 g/dL Normal 12.0-15.0 [facility] Comment on above: Performed By: #### C BCD ####[place] [address] [address] [place] [address] IMMATURE NEUT % 0.50 % Normal 0.0-1.0 [facility] Comment on above: Performed By: #### C BCD ####[place] [address] [facility] [place] [address] Lymphocytes Auto #/vol (Bld) 1.45 10*3/uL Normal 1.2-3.2 [facility] Comment on above: Performed By: #### C BCD ####[facility] LaboratoryL[facility] Ielc[address]035 [place] [address] Lymphocytes/100 WBC Auto (Bld) 19.50 % Low 20-40 [facility] Comment on above: Performed By: #### C BCD ####[facility] LaboratoryL[facility] Npwc[address]49 [place] [address] MCH Auto Entitic mass (RBC) 27.1 pg Normal 26-34 [facility] Comment on above: Performed By: #### C BCD ####[facility] LaboratoryL[facility] Udxv[address]329 [place] [address] MCHC Auto mass conc (RBC) 31.2 % Normal 31-37 [facility] Comment on above: Performed By: #### C BCD ####[facility] LaboratoryL[facility] Heim[address] [place] [address] MCV Auto Entitic volume (RBC) 86.9 fL Normal 80-100 [facility] Comment on above: Performed By: #### C BCD ####[facility] LaboratoryNcke Cevj[address]900 [place] [address] MEAN PLT VOL 9.8 CU Normal 7.0-12.6 [facility] Comment on above: Performed By: #### C BCD ####[facility] LaboratoryL[facility] Qkuz[address]26 [place] [address] Monocytes Auto #/vol (Bld) 0.94 10*3/uL High 0-0.8 [facility] Comment on above: Performed By: #### C BCD ####[facility] LaboratoryL[facility] Bbfr[address]04 [place] [address] Monocytes/100 WBC Auto (Bld) 12.60 % High 0-8 [facility] Comment on above: Performed By: #### C BCD ####[facility] LaboratoryL[facility] Yvnp23325 [place] [address] Neutrophils/100 WBC Auto (Bld) 60.50 % Normal 50-70 [facility] Comment on above: Performed By: #### C BCD ####[facility] LaboratoryL[facility] Puqo[address]90 [place] [address] NRBC'S 0 /100 WBC Normal 0 [facility] Comment on above: Performed By: #### C BCD ####[place] [address] Platelets Auto #/vol (Bld) 260 10*3/uL Normal 150-450 [facility] Comment on above: Performed By: #### C BCD ####[place] [address] RBC Auto #/vol (Bld) 4.43 M/UL Normal 4.0-4.9 [facility] Comment on above: Performed By: #### C BCD ####[place] [address] RDW-SD 49.1 FL Normal 37.0-54.0 [facility] Comment on above: Performed By: #### C BCD ####[place] [address] WBC Auto #/vol (Bld) 7.4 10*3/uL Normal 4.5-11.0 [facility] Comment on above: Performed By: #### C BCD ####[place] [address] CHEST PORTABLEon 01-19-2018 CHEST PORTABLE *FINAL Date of Service: 01/19/2018 16:41 Adm #: [id number] Dr:AUBREE COOPER Signoff Dr: AUBREE COOPERPROCEDURE: CHEST PORTABLE - WXR 0018REASON FOR EXAM: chest pain, pain with deep breating RESULT: HISTORY: Chest pain with deep breathing Portable AP Chest xray at image time 1628 hours TECHNIQUE: Portable AP view of the chest was performed. Heart size and pulmonary vasculature are normal with no infiltrate or effusion. Minimal left base atelectasis present. Mediastinum appears unremarkable. No pneumothorax is seen. Postoperative change cervical spine noted. IMPRESSION: Minimal left base atelectasis. This report has been produced using speech recognition. Original Interpreting Physician: AUBREE COOPER M.D.Original Transcribed by/Date: PSCB Jan 19 2018 4:54POriginal Electronically Signed by/Date: AUBREE COOPER M.D. Jan 19 2018 4:54P Addendum Interpreting Physician: Addendum Transcribed by/Date: NO ADDENDUMAddendum Electronically Signed by/Date: Normal [facility] COMPREHENSIVE METABOLIC PANE Amarjit 01-19-2018 Albumin mass conc 3.7 g/dL Normal 3.5-5.0 [facility] [facility] Comment on above: Performed By: #### C JOINTER MACHINE ####[facility] Wwkn[address] [place] [address] Albumin/Globulin mass ratio 1.5 {ratio} Normal 1.5-3.0 [facility] Comment on above: Performed By: #### C JOINTER MACHINE ####[facility] Fdfa[address]64 [place] [address] ALP enzyme act/vol 159 U/L High 35-125 [facility] Comment on above: Performed By: #### C JOINTER MACHINE ####[facility] Jbod[address]42 [place] [address] ALT enzyme act/vol 22 U/L Normal 5-40 [facility] Comment on above: Performed By: #### C JOINTER MACHINE ####[facility] Ksui[address]14 [place] [address] Anion gap 3 molar conc 14 mmol/L Normal 0-19 [facility] Comment on above: Performed By: #### C JOINTER MACHINE ####[facility] Gasd[address]02 [place] [address] AST enzyme act/vol 21 U/L Normal 5-40 [facility] Comment on above: Performed By: #### C JOINTER MACHINE ####[facility] Wqlf[address]66 [place] [address] Bilirubin mass conc Normal 0.1-1.2 [facility] Comment on above: Result Comment: 0.2L ESS THAN Performed By: #### C JOINTER MACHINE ####[facility] Zwsj[address]01 [place] [address] Calcium mass conc 9.9 mg/dL Normal 8.5-10.4 [facility] Comment on above: Performed By: #### C JOINTER MACHINE ####[facility] Fvgf[address] [place] [address] Chloride molar conc 97 mmol/L Normal 97-107 [facility] Comment on above: Performed By: #### C JOINTER MACHINE ####[facility] Guyy[address]56 [address] [place] [place] [address] CO2 molar conc 25 mmol/L Normal 24-31 [facility] Comment on above: Performed By: #### C JOINTER MACHINE ####[facility] Ujrf[address] [place] [address] Creatinine mass conc 1.1 mg/dL Normal 0.4-1.6 [facility] Comment on above: Performed By: #### C JOINTER MACHINE ####[place] [id number] [place] [place] [address] GFR/1.73 sq M.predicted MDRD vol rate/area Normal [facility] Comment on above: Result Comment: 53GF R ml/min/1.73m2 Stage -----90 160-89 230-59 315-29 4<15 5For -Americans, multiply EGFR result by 1.210Calculation not validated for patients under 18 years of age.Performed at [facility] [address] [place] [address] Performed By: #### C JOINTER MACHINE ####[place] [address] [address] [place] [address] Globulin Calculated mass conc (S) 2.5 g/dL Normal 1.9-3.7 [facility] Comment on above: Performed By: #### C JOINTER MACHINE ####[facility] Hdbi[address] [place] [address] Glucose mass conc 163 mg/dL High 65-99 [facility] Comment on above: Performed By: #### C JOINTER MACHINE ####[facility] Ofmz[address]37 [address] [place] [place] [address] Potassium molar conc 4.1 mmol/L Normal 3.4-5.1 [facility] Comment on above: Performed By: #### C JOINTER MACHINE ####[facility] Gxcd[address]793 [address] [place] [address] Protein mass conc 6.2 g/dL Normal 5.9-7.9 [facility] Comment on above: Performed By: #### C JOINTER MACHINE ####[facility] Xkcy[address] [place] [address] Sodium molar conc 136 mmol/L Normal 133-145 [facility] Comment on above: Performed By: #### C JOINTER MACHINE ####[facility] Cqgi[address] [place] [address] Urea nitrogen mass conc 28 mg/dL High 8 [facility] Comment on above: Performed By: #### C JOINTER MACHINE ####[facility]cb[facility] Xbhi[address] [place] [address] Urea nitrogen/Creatinine mass ratio 25.5 RATIO [facility] 12-15 [facility] Comment on above: Performed By: #### C JOINTER MACHINE ####[facility] LaboratoryNcbob Tluk[address] [place] [address] Consulton 01-19-2018 Consult [facility] History and Physicalon 01-19 History and Physical Normal [facility] PROTHROMBIN TIMEon 8 ANTICOAGULANT INFORMATION NOT REPO RTED TO LABORATORY Normal [facility] Comment on above: Performed By: #### P TB ####[place] [address] [facility] [place] [address] INR Coag RelTime (PPP) Normal 0.86-1.16 [facility] Comment on above: Result Comment: 0.9I NR Theraputic Range: 2.0-3.5Performed at [address] [place] [address] Performed By: #### P TB ####[place] [address] [place] [address] Prothrombin time (PT) Coag time (PPP) 9.7 s Normal 9.3-12.7 [facility] Comment on above: Performed By: #### P TB ####[address] [place] [address] TROPONIN Ton 01-19-2018 Troponin T.cardiac mass conc Normal 0.0-0.1 [facility] Comment on above: Result Comment: 0.01 LESS THANPerformed at [address] [place] [address] Performed By: #### T ROP ####[facility] Ujzu[address] [place] [address] UA-REFLEX TO CULTUREon 01-19 BACT [facility] Comment on above: Result Comment: PRES ENTPerformed at [facility] [address] [place] [address] Performed By: #### U ACUL ####[facility] LaboratoryL[facility] Shxl[address] [place] [address] Bacteria identified Cx Nom (U) CULTURE BEING ORDERED BASED ON LEUKOCYTE ESTERASE [facility] Comment on above: Performed By: #### U ACUL ####[facility] LaboratoryL[facility] Fuev[address] [place] [address] [facility] Comment on above: Performed By: #### U ACUL ####[facility] LaboratoryL[facility] Jygr[address] [place] [address] [facility] Comment on above: Performed By: #### U ACUL ####[facility] LaboratoryL[facility] Dkmj[address] [place] [address] CAST Normal 0-3 [facility] Comment on above: Result Comment: OCCH YALINE Performed By: #### U ACUL ####[facility] LaboratoryL[facility] Bikj[address] [place] [address] Clarity Nom (U) CLEAR [facility] Comment on above: Performed By: #### U ACUL ####[facility] LaboratoryL[facility] Bzcz[address] [place] [address] Color Nom (U) YELLOW [facility] Comment on above: Performed By: #### U ACUL ####[facility] LaboratoryL[facility] Idsm[address] [place] [address] EPI [facility] Comment on above: Result Comment: MODE RATESQUAMOUS Performed By: #### U ACUL ####[facility] Zfzh[address] [place] [address] GLUC Negative Normal [facility] Comment on above: Performed By: #### U ACUL ####[facility] LaboratoryL[facility] Ithl[address]99 [place] [address] KET Negative Normal NEG [facility] Comment on above: Performed By: #### U ACUL ####[facility] Rqgv[address] [place] [address] LEUK LARGE Abnormal NEG [facility] Comment on above: Performed By: #### U ACUL ####[facility] Laio[address] [place] [address] MICROSCOPIC MANUAL MICROSCOPIC URINES Normal [facility] Comment on above: Performed By: #### U ACUL ####[facility] Dxmd[address] [place] [address] NIT Negative Normal NEG [facility] Comment on above: Performed By: #### U ACUL ####[facility] Msee[address] [place] [address] pH Test strip (U) 5.0 [pH] Normal 4.6-8.0 [facility] Comment on above: Performed By: #### U ACUL ####[facility] LaboratoryL[facility] Ryep[address] [place] [address] PROT Negative Normal NEG [facility] Comment on above: Performed By: #### U ACUL ####[facility] LaboratoryL[facility] Xtbz[address] [place] [address] RBC Test strip #/vol (U) NONE SEEN Normal 0-3 [facility] Comment on above: Performed By: #### U ACUL ####[facility] LaboratoryL[facility] Nrnk[address] [place] [address] SP GRAV,URINE 1.015 Normal 1.005-1.030 [facility] Comment on above: Performed By: #### U ACUL ####[facility] LaboratoryL[facility] Qzun[address] [place] [address] URO Negative Normal 0-1.0 [facility] Comment on above: Performed By: #### U ACUL ####[facility] Rxpv[address] [place] [address] WBC 2-4 Normal 0-3 [facility] Comment on above: Performed By: #### U ACUL ####[facility] LaboratoryL[facility] Ygsa[address]34 [place] [address] Glucose, POCon 12-31-2017 Glucose mass conc 182 mg/dL High 80[address] [place] [address] Comment on above: Performed By: #### L IPID, TSH ####Unless otherwise noted, all testing performed by [place] [id number]: [id number] Director: Melva Escamilla M.D. Glucose mass conc 365 mg/dL High 80-115 [facility] Comment on above: Performed By: #### L IPID, TSH ####Unless otherwise noted, all testing performed by [place] 817076-[address]CLIA: [id number] Director: Melva Escamilla M.D. Glucose mass conc 85 mg/dL Normal [address] [place] [address] Comment on above: Performed By: #### L IPID, TSH ####Unless otherwise noted, all testing performed by [place] 817076-[address]CLIA: [id number] Director: Melva Escamilla M.D. Glucose, POCon 12-30-2017 Glucose mass conc 173 mg/dL High [address] Comment on above: Performed By: #### L IPID, TSH ####Unless otherwise noted, all testing performed by [address] [id number]: [id number] Director: Melva Escamilla M.D. Glucose mass conc 175 mg/dL High [address] [place] [address] Comment on above: Performed By: #### L IPID, TSH ####Unless otherwise noted, all testing performed by [place] [id number]: [id number] Director: Melva Escamilla M.D. Glucose mass conc 419 mg/dL Critically high [address] [place] [address] Comment on above: Performed By: #### L IPID, TSH ####Unless otherwise noted, all testing performed by [place] [address]CLIA: [id number] Director: Melva Escamilla M.D. Glucose mass conc 83 mg/dL Normal [address] [place] [address] Comment on above: Performed By: #### L IPID, TSH ####Unless otherwise noted, all testing performed by [address]IA: [id number] Director: Melva Escamilla M.D. Glucose, POCon 12-29-2017 Glucose mass conc 249 mg/dL High [address] [place] [address] Comment on above: Performed By: #### L IPID, TSH ####Unless otherwise noted, all testing performed by [place] [address]CLIA: [id number] Director: Melva Escamilla M.D. Glucose mass conc 248 mg/dL High [address] [place] [address] Comment on above: Performed By: #### L IPID, TSH ####Unless otherwise noted, all testing performed by [address]IA: [id number] Director: Melva Escamilla M.D. Glucose mass conc 330 mg/dL High [address] [place] [address] Comment on above: Performed By: #### L IPID, TSH ####Unless otherwise noted, all testing performed by [address] [id number]: [id number] Director: Melva Escamilla M.D. Glucose mass conc 98 mg/dL Normal [address] Comment on above: Performed By: #### L IPID, TSH ####Unless otherwise noted, all testing performed by [place] 817076-[address]CLIA: [id number] Director: Melva Escamilla M.D. Glucose, POCon 12-28-2017 Glucose mass conc 316 mg/dL High [address] Comment on above: Performed By: #### L IPID, TSH ####Unless otherwise noted, all testing performed by [place] [address]CLIA: [id number] Director: Melva Escamilla M.D. Glucose mass conc 158 mg/dL High [address] [place] [address] Comment on above: Performed By: #### L IPID, TSH ####Unless otherwise noted, all testing performed by [place] [address]CLIA: [id number] Director: Melva Escamilla M.D. Glucose mass conc 324 mg/dL High [address] [place] [address] Comment on above: Performed By: #### L IPID, TSH ####Unless otherwise noted, all testing performed by [place] 817076-[address]CLIA: [id number] Director: Melva Escamilla M.D. Glucose mass conc 84 mg/dL Normal 80-115 [facility] Comment on above: Performed By: #### L IPID, TSH ####Unless otherwise noted, all testing performed by [address]IA: [id number] Director: Melva Escamilla M.D. Glucose, POCon 12-27-2017 Glucose mass conc 160 mg/dL High 80-[address] [place] [address] Comment on above: Performed By: #### L IPID, TSH ####Unless otherwise noted, all testing performed by [place] [address]CLIA: [id number] Director: Melva Escamilla M.D. Glucose mass conc 204 mg/dL High [address] Comment on above: Performed By: #### L IPID, TSH ####Unless otherwise noted, all testing performed by [place] [address]CLIA: [id number] Director: Melva Escamilla M.D. Glucose mass conc 164 mg/dL High [address] Comment on above: Performed By: #### L IPID, TSH ####Unless otherwise noted, all testing performed by [address]IA: [id number] Director: Melva Escamilla M.D. Glucose mass conc 123 mg/dL High [address] Comment on above: Performed By: #### L IPID, TSH ####Unless otherwise noted, all testing performed by [address] [place] [phone]: [id number] Director: Melva Escamilla M.D. Glucose, POCon 12-26-2017 Glucose mass conc 173 mg/dL High [address] Comment on above: Performed By: #### L IPID, TSH ####Unless otherwise noted, all testing performed by [address]CLIA: [id number] Director: Melva Escamilla M.D. Glucose mass conc 243 mg/dL High [address] [place] [address] Comment on above: Performed By: #### L IPID, TSH ####Unless otherwise noted, all testing performed by [address]CLIA: [id number] Director: Melva Escamilla M.D. Glucose mass conc 314 mg/dL High [address] [place] [address] Comment on above: Performed By: #### L IPID, TSH ####Unless otherwise noted, all testing performed by [address]CLIA: [id number] Director: Melva Escamilla M.D. Glucose mass conc 114 mg/dL Normal [address] [place] [address] Comment on above: Performed By: #### L IPID, TSH ####Unless otherwise noted, all testing performed by [address]CLIA: [id number] Director: Melva Escamilla M.D. Glucose, POCon 12-25-2017 Glucose mass conc 185 mg/dL High [address] Comment on above: Performed By: #### L IPID, TSH ####Unless otherwise noted, all testing performed by [address] [id number]: [id number] Director: Melva Escamilla M.D. Glucose mass conc 290 mg/dL High [address] Comment on above: Performed By: #### L IPID, TSH ####Unless otherwise noted, all testing performed by [address] [phone]: [id number] Director: Melva Ecsamilla M.D. Glucose mass conc 181 mg/dL High [address] [place] [address] Comment on above: Performed By: #### L IPID, TSH ####Unless otherwise noted, all testing performed by [address] [phone]: [id number] Director: Melva Escamilla M.D. Glucose mass conc 130 mg/dL High [address] [place] [address] Comment on above: Performed By: #### L IPID, TSH ####Unless otherwise noted, all testing performed by [address] [phone]: [id number] Director: Melva Escamilla M.D. Glucose, POCon 12-24-2017 Glucose mass conc 146 mg/dL High [address] Comment on above: Performed By: #### L IPID, TSH ####Unless otherwise noted, all testing performed by [place] 817076[address]CLIA: [id number] Director: Melva Escamilla M.D. Glucose mass conc 232 mg/dL High [address] Comment on above: Performed By: #### L IPID, TSH ####Unless otherwise noted, all testing performed by [address]CLIA: [id number] Director: Melva Escamilla M.D. Glucose mass conc 274 mg/dL High [address] Comment on above: Performed By: #### L IPID, TSH ####Unless otherwise noted, all testing performed by [address]CLIA: [id number] Director: Melva Escamilla M.D. Glucose mass conc 82 mg/dL Normal [address] [place] [address] Comment on above: Performed By: #### L IPID, TSH ####Unless otherwise noted, all testing performed by [place] [address]CLIA: [id number] Director: Melva Escamilla M.D. [facility] Glucose mass conc 156 mg/dL High [address] [place] [address] Comment on above: Performed By: #### L IPID, TSH ####Unless otherwise noted, all testing performed by [address]CLIA: [id number] Director: Melva Escamilla M.D. Glucose mass conc 154 mg/dL High [address] [place] [address] Comment on above: Performed By: #### L IPID, TSH ####Unless otherwise noted, all testing performed by [address] [phone]: [id number] Director: Melva Escamilla M.D. Glucose mass conc 251 mg/dL High [address] Comment on above: Performed By: #### L IPID, TSH ####Unless otherwise noted, all testing performed by [place] 8[address]076[address]CLIA: [id number] Director: Melva Escamilla M.D. Glucose mass conc 144 mg/dL High [address] [place] [address] Comment on above: Performed By: #### L IPID, TSH ####Unless otherwise noted, all testing performed by [place] [address]CLIA: [id number] Director: Melva Escamilla M.D. [facility] Glucose mass conc 215 mg/dL High [address] [place] [address] Comment on above: Performed By: #### L IPID, TSH ####Unless otherwise noted, all testing performed by [place] [address]CLIA: [id number] Director: Melva Escamilla M.D. Glucose mass conc 166 mg/dL [address] Comment on above: Performed By: #### L IPID, TSH ####Unless otherwise noted, all testing performed by [address] [phone]: [id number] Director: Melva Escamilla M.D. Glucose mass conc 289 mg/dL High [address] Comment on above: Performed By: #### L IPID, TSH ####Unless otherwise noted, all testing performed by [address]CLIA: [id number] Director: Melva Escamilla M.D. Glucose mass conc 142 mg/dL High [address] [place] [address] Comment on above: Performed By: #### L IPID, TSH ####Unless otherwise noted, all testing performed by [place] [address]CLIA: [id number] Director: Melva Escamilla M.D. Glucose, POCon 12-21-2017 Glucose mass conc 258 mg/dL [address] Comment on above: Performed By: #### L IPID, TSH ####Unless otherwise noted, all testing performed by [place] [address]CLIA: [id number] Director: Melva Escamilla M.D. Glucose mass conc 233 mg/dL [address] Comment on above: Performed By: #### L IPID, TSH ####Unless otherwise noted, all testing performed by [address]CLIA: [id number] Director: Melva Escamilla M.D. Glucose mass conc 285 mg/dL [address] Comment on above: Performed By: #### L IPID, TSH ####Unless otherwise noted, all testing performed by [place] [address]CLIA: [id number] Director: Melva Escamilla M.D. Glucose mass conc 131 mg/dL High 80-115 [facility] Comment on above: Performed By: #### L IPID, TSH ####Unless otherwise noted, all testing performed by [address] [phone]: [id number] Director: Melva Escamilla M.D. Hemoglobin A1Con 12-21-2017 Hemoglobin A1c/Hemoglobin.total mass fraction (Bld) 8.1 % High 4.1-6.5 [facility] Comment on above: Performed By: #### L IPID, TSH ####Unless otherwise noted, all testing performed by [place] 8[address]076[address]CLIA: [id number] Director: Melva Escamilla M.D. CBC with Diffon 12-20-2017 Basophils Auto #/vol (Bld) 0.1 K/mcL Normal 0-0.2 [facility] Comment on above: Performed By: #### L IPID, TSH ####Unless otherwise noted, all testing performed by [address] [phone]: [id number] Director: Melva Escamilla M.D. Basophils/100 WBC Auto (Bld) 1.1 % Normal [facility] Comment on above: Performed By: #### L IPID, TSH ####Unless otherwise noted, all testing performed by [address] [phone]: [id number] Director: Melva Escamilla M.D. Eosinophils Auto #/vol (Bld) 0.3 K/mcL Normal 0-0.5 [facility] Comment on above: Performed By: #### L IPID, TSH ####Unless otherwise noted, all testing performed by [address] [phone]: [id number] Director: Melva Escamilla M.D. Eosinophils/100 WBC Auto (Bld) 4.7 % Normal [facility] Comment on above: Performed By: #### L IPID, TSH ####Unless otherwise noted, all testing performed by [address]CLIA: [id number] Director: Melva Escamilla M.D. Erythrocyte distribution width Auto Ratio (RBC) 16.5 % High 10.0-14.4 [facility] Comment on above: Performed By: #### L IPID, TSH ####Unless otherwise noted, all testing performed by [address]CLIA: [id number] Director: Melva Escamilla M.D. Hematocrit Auto Volume Fraction (Bld) 33.3 % Low 34.4-44.8 [facility] Comment on above: Performed By: #### L IPID, TSH ####Unless otherwise noted, all testing performed by [address] [phone]: [id number] Director: Melva Escamilla M.D. Hemoglobin mass conc (Bld) 11.0 g/dL Low 11.6-15.4 [facility] Comment on above: Performed By: #### L IPID, TSH ####Unless otherwise noted, all testing performed by [address] [phone]: [id number] Director: Melva Escamilla M.D. Lymphocytes Auto #/vol (Bld) 1.5 K/mcL Normal 1.0-3.7 [facility] Comment on above: Performed By: #### L IPID, TSH ####Unless otherwise noted, all testing performed by [address] [phone]: [id number] Director: Melva Escamilla M.D. Lymphocytes/100 WBC Auto (Bld) 20.6 % Normal [facility] Comment on above: Performed By: #### L IPID, TSH ####Unless otherwise noted, all testing performed by [address]526-[address]CLIA: [id number] Director: Melva Escamilla M.D. MCH Auto Entitic mass (RBC) 27.9 pg Normal 27.9-33.9 [facility] Comment on above: Performed By: #### L IPID, TSH ####Unless otherwise noted, all testing performed by [address] [phone]: [id number] Director: Melva Escamilla M.D. MCHC Auto mass conc (RBC) 33.1 g/dL Normal 33.1-35.1 [facility] Comment on above: Performed By: #### L IPID, TSH ####Unless otherwise noted, all testing performed by [address] [phone]: [id number] Director: Melva Escamilla M.D. MCV Auto Entitic volume (RBC) 84.5 fL Normal 82.6-98.9 [facility] Comment on above: Performed By: #### L IPID, TSH ####Unless otherwise noted, all testing performed by [address]CLIA: [id number] Director: Melva Escamilla M.D. Monocytes Auto #/vol (Bld) 0.8 K/mcL High 0.1-0.6 [facility] Comment on above: Performed By: #### L IPID, TSH ####Unless otherwise noted, all testing performed by [address]CLIA: [id number] Director: Melva Escamilla M.D. Monocytes/100 WBC Auto (Bld) 11.4 % Normal [facility] Comment on above: Performed By: #### L IPID, TSH ####Unless otherwise noted, all testing performed by [place] [address]CLIA: [id number] Director: Melva Escamilla M.D. Neutrophils Auto #/vol (Bld) 4.5 K/mcL Normal 1.2-6.9 [facility] Comment on above: Performed By: #### L IPID, TSH ####Unless otherwise noted, all testing performed by [place] [address]CLIA: [id number] Director: Melva Escamlila M.D. Platelet mean volume Auto Entitic volume (Bld) 8.0 fL Normal 7.0-10.6 [facility] Comment on above: Performed By: #### L IPID, TSH ####Unless otherwise noted, all testing performed by [address] [phone]: [id number] Director: Melva Escamilla M.D. Platelets Auto #/vol (Bld) 266 K/mcL Normal 162-402 [facility] Comment on above: Performed By: #### L IPID, TSH ####Unless otherwise noted, all testing performed by [address] [phone]: [id number] Director: Melva Escamilla M.D. RBC Auto #/vol (Bld) 3.95 M/mcL Normal 3.7-5.0 [facility] Comment on above: Performed By: #### L IPID, TSH ####Unless otherwise noted, all testing performed by [address] [phone]: [id number] Director: Melva Escamilla M.D. Segmented Neut % 62.2 % Normal [place] Comment on above: Performed By: #### L IPID, TSH ####Unless otherwise noted, all testing performed by [address] [phone]: [id number] Director: Melva Escamilla M.D. WBC Auto #/vol (Bld) 7.3 K/mcL Normal 3.4-10.6 [facility] Comment on above: Performed By: #### L IPID, TSH ####Unless otherwise noted, all testing performed by [address] [phone]: [id number] Director: Melva Escamilla M.D. Comprehensive Metabolic Pane amarjit 12-20-2017 Albumin mass conc 2.8 g/dL Low 3.2-5.2 [facility] Comment on above: Performed By: #### L IPID, TSH ####Unless otherwise noted, all testing performed by [address] [phone]: [id number] Director: Melva Escamilla M.D. ALP enzyme act/vol 128 U/L Normal 40-150 [facility] Comment on above: Performed By: #### L IPID, TSH ####Unless otherwise noted, all testing performed by [address] [phone]: [id number] Director: Melva Escamilla M.D. ALT enzyme act/vol 18 U/L Normal 14-65 [facility] Comment on above: Result Comment: This test result might be falsely depressed or falsely elevated onsamples drawn from patients taking Sulfasalazine and Sulfapyridine.Venipuncture should occur prior to taking either of these drugs. Performed By: #### L IPID, TSH ####Unless otherwise noted, all testing performed by [address] [phone]: [id number] Director: Melva Escamilla M.D. AST enzyme act/vol 12 U/L Normal 0-45 [facility] Comment on above: Result Comment: This test result might be falsely depressed or falsely elevated onsamples drawn from patients taking Sulfasalazine and Sulfapyridine.Venipuncture should occur prior to taking either of these drugs. Performed By: #### L IPID, TSH ####Unless otherwise noted, all testing performed by [address], [place] [phone]: [id number] Director: Melva Escamilla M.D. Bilirubin mass conc 0.2 mg/dL Low 0.3-1.2 [facility] Comment on above: Performed By: #### L IPID, TSH ####Unless otherwise noted, all testing performed by [address] [phone]: [id number] Director: Melva Escamilla M.D. Calcium mass conc 9.4 mg/dL Normal 8.4-10.2 [facility] Comment on above: Performed By: #### L IPID, TSH ####Unless otherwise noted, all testing performed by [address] [phone]: [id number] Director: Melva Escamilla M.D. Chloride molar conc 108 mmol/L Normal 98-108 [facility] Comment on above: Performed By: #### L IPID, TSH ####Unless otherwise noted, all testing performed by [address] [phone]: [id number] Director: Melva Escamilla M.D. CO2 molar conc 23 mmol/L Normal 21-32 [facility] Comment on above: Performed By: #### L IPID, TSH ####Unless otherwise noted, all testing performed by [address] [phone]: [id number] Director: Melva Escamilla M.D. Creatinine mass conc 0.66 mg/dL Normal 0.60-1.20 [facility] Comment on above: Performed By: #### L IPID, TSH ####Unless otherwise noted, all testing performed by [address], [place] [phone]: [id number] Director: Melva Escamilla M.D. GFR/1.73 sq M predicted among blacks MDRD vol rate/area (S/P/Bld) mL/min/{1.73_m2} Normal [facility] Comment on above: Result Comment: Afri can Tongan GFR Calc Performed By: #### L IPID, TSH ####Unless otherwise noted, all testing performed by [address] [phone]: [id number] Director: Melva Escamilla M.D. GFR/1.73 sq M predicted among non-blacks MDRD vol rate/area (S/P/Bld) mL/min/{1.73_m2} Normal [facility] Comment on above: Result Comment: Non- GFR CalceGFR is an estimated Glomerular Filtration Rate based on the valueof the patient's serum creatinine. In outpatients, eGFR should be usedas a helpful tool in screening for CKD. In inpatients or patients withacute renal failure, eGFR represents the GFR at the moment of the drawand should be used with caution. Performed By: #### L IPID, TSH ####Unless otherwise noted, all testing performed by [address] [phone]: [id number] Director: Melva Escamilla M.D. Glucose mass conc 168 mg/dL High 70-99 [facility] Comment on above: Result Comment: This test result might be falsely depressed or falsely elevated onsamples drawn from patients taking Sulfasalazine and Sulfapyridine.Venipuncture should occur prior to taking either of these drugs. Performed By: #### L IPID, TSH ####Unless otherwise noted, all testing performed by [address] [phone]: [id number] Director: Melva Escamilla M.D. Potassium molar conc 4.0 mmol/L Normal 3.5-5.1 [facility] Comment on above: Performed By: #### L IPID, TSH ####Unless otherwise noted, all testing performed by [place] [phone]: [id number] Director: Melva Escamilla M.D. Protein mass conc 5.8 g/dL Low 6.0-8.0 [facility] Comment on above: Performed By: #### L IPID, TSH ####Unless otherwise noted, all testing performed by [place] [phone]: [id number] Director: Melva Escamilla M.D. Sodium molar conc 136 mmol/L Normal 135-145 [facility] Comment on above: Performed By: #### L IPID, TSH ####Unless otherwise noted, all testing performed by [place] [phone]: [id number] Director: Melva Escamilla M.D. Urea nitrogen mass conc 20 mg/dL Normal 8-25 [facility] Comment on above: Performed By: #### L IPID, TSH ####Unless otherwise noted, all testing performed by [place] [phone]: [id number] Director: Melva Escamilla M.D. Exception Noticeon 8 Exception Notice QNS REDRAWCMET,LIPID,TSH Normal [facility] Comment on above: Performed By: #### L IPID, TSH ####Unless otherwise noted, all testing performed by [address]8509CLIA: [id number] Director: Melva Escamilla M.D. Glucose, POCon 12-20-2017 Glucose mass conc 220 mg/dL High [address] [place] [address] Comment on above: Performed By: #### L IPID, TSH ####Unless otherwise noted, all testing performed by [address]8509CLIA: [id number] Director: Melva Escamilla M.D. Glucose mass conc 206 mg/dL High [address] [place] [address] Comment on above: Performed By: #### L IPID, TSH ####Unless otherwise noted, all testing performed by [address]8509CLIA: [id number] Director: Melva Escamilla M.D. Glucose mass conc 274 mg/dL High [address] Comment on above: Performed By: #### L IPID, TSH ####Unless otherwise noted, all testing performed by [address]8509CLIA: [id number] Director: Melva Escamilla M.D. Glucose mass conc 224 mg/dL High [address] Comment on above: Performed By: #### L IPID, TSH ####Unless otherwise noted, all testing performed by [place] [address] [address], [place] [phone]: [id number] Director: Melva Escamilla M.D. History And Physical-Dictate don 12-20-2017 History And Physical-Dictated [place] [address] [address], [place] [address]VVNE [facility] [id number] 5ADMIT 12/19/2017HISTORY AND PHYSICALPATIENT IDENTIFICATIONElijessica is a 62-year-old white female. She lives with a roommate.REASON FOR ADMISSIONShe is being seen, I am not doing well.HISTORY OF PRESENT ILLNESSElijessica has a history of depression. She reports her depression has beenworse over the past 2 years since her . She also has multiplechronic medical problems that are very stressful to her, and she reportsneurovegetative symptoms of depression including anhedonia, fatigue, and shereports that she has been isolating, unable to get out of bed, not necessarilybecause of her medical problems, but also from her depression. She deniescurrently having psychotic symptoms. Elo had overdosed on multiplemedications, and yesterday she ended up calling 911 and [facility] she was medically cleared beforebeing sent here for psychiatric treatment. She continues to report suicidethoughts that are passive with no current suicide plan. She does feel thattyrone could be safe if she was discharged from the hospital today.PAST PSYCHIATRIC HISTORYThis is Elo's 3rd inpatient psychiatric treatment. She was justdischarged from inpatient treatment here earlier this month. She had alsobeen admitted here in June of this year after a suicide attempt by overdose.FAMILY PSYCHIATRIC HISTORYShe denies known family history of mental illness.MEDICAL HISTORYShreggie has a peptic ulcer, multiple sclerosis, GERD, hypertension,hypercholest erolemia, atrial fibrillation, congestive heart failure, anddiabetes.ALLERGIESShe reports multiple allergies including allergy to clindamycin, Darvocet,Imitrex, iodine and iodine-containing products, IV dye, iodine containing.CURRENT MEDICATIONSReviewed in the electronic med reconciliation sheet. She takes albuterolinhaler p.r.n., aspirin 81 mg p.o. daily, atorvastatin 40 mg p.o. q.h.s.,carvedilol 3.125 mg p.o. twice daily, vitamin D3, clopidogrel 75 mg p.o.daily, docusate 100 mg twice daily, Aricept 10 mg p.o. q.p.m., Cymbalta 60 mgp.o. daily, ferrous sulfate 325 mg p.o. daily, Lasix 40 mg p.o. daily,glimepiride 4 mg p.o. 2 times daily before meals. She takes Lantus insulinsubcutaneously every morning 30 units. She takes isosorbide mononitrate 30 mgp.o. daily, lisinopril 5 mg p.o. daily, Latuda 20 mg p.o. daily, methadone 5mg p.o. at bedtime, Remeron 30 mg p.o. q.h.s., modafinil 100 mg p.o. twicedaily, oxycodone/acetaminophen 5 mg/325 mg p.o. q.4 hours p.r.n. for moderatepain, pantoprazole 40 mg p.o. daily, phenazopyridine 100 mg p.o. daily,potassium chloride 20 mEq p.o. daily, ropinirole 0.5 mg p.o. q.h.s.,sucralfate 1 g 4 times daily before meals and at bedtime. She takesteriflunomide 14 mg p.o. daily, hydroxyzine 50 mg p.o. 3 times daily p.r.n.for itching.SOCIAL HISTORYThe patient is . She lives with a roommate and she is not currentlyemployed. 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 She denies currentlegal problems. In the spring, she had legal problems due to trespassing.She reports her nephew and sister had pressed trespassing charge against her.MENTAL STATUS EXAMThe patient is a 62-year-old white female. She is dressed in hospital gown.She is disheveled. She looks older than her stated age. She makes adequateeye contact. She is somewhat cooperative. Seems easily agitated. Shereports depressed mood. Affect is dysphoric, tearful, and irritable. Herspeech is sometimes loud when upset. Her thought processes are preoccupiedwith somatic complaints. She continues to verbalize not wanting to be alive.No homicide thoughts. No hallucinations. No delusions. She is alert. Sheis oriented to time, place, and person. Attention and concentration areintact by interview. Fund of knowledge is average by interview. Insight islimited by interview. Judgment is limited by interview. Gait and station arenormal. No abnormal involuntary movements.ASSETS AND STRENGTHSGood communication skills. Average intelligence. There is contraindicationto restraint and seclusion due to multiple medical problems.DIAGNOSISMajor depressive disorder, recurrent, severe, without psychotic features.MEDICAL DIAGNOSESPeptic ulcer, multiple sclerosis, gastroesophageal reflux disease,hypertension, hypercholesterolemia, atrial fibrillation, congestive heartfailure, and diabetes.PSYCHOSOCIAL CONTEXTUAL FACTORSChronic multiple medical problems. The patient is a . Social isolationand questionable problems, legal problems, family problems.PRELIMINARY GOALSMaintain safety, obtain collateral information, improve mood, improve insightand coping skills, treatment changes, medication management, psychosocialtreatment, discharge planning.ESTIMATED LENGTH OF STAYAbout 3-5 days.TREATMENTShe meets criteria for inpatient treatment. She is started on her homemedication, and dosage adjustments will be made as clinically indicated.ALEJANDRO MCNAIR 12/19/2017 17:36 [id number] 12/19/2017 19:31 REO/MODLElectronically Signed By Annetta Ruiz M.D. on 20 Dec 2017 18:20:28 GMT Normal [facility] Protein mass conc [facility], [place] [address]WTBL [facility] [id number] 1954DATE 12/19/2017PROGRESS NOTEThe patient seen and chart reviewed. Patient discussed with nursing staff.Elo has been taking her medications. No reported side effects tomedications. She seems less irritable today. She also reports feeling morecontent; however, is reporting ongoing anxiety about her chronic medicalproblems and had depression. She reports not sleeping well last night withfrequent awakening. She is not currently having suicidal or homicidalideation today while in the hospital. No psychosis.REVIEW OF SYSTEMSNegative.MENTAL STATUS EXAMShe is casually dressed. She is sitting up in a hospital bed. She makesadequate eye contact. She seems calmer and more cooperative. Mood and affectare less irritable, but still dysphoric and anxious. Her speech is withinnormal limits. Her thought process is logical, coherent. Associationsintact. She currently denies suicide or homicide thoughts. She denieshallucinations or delusions. She is alert. She is oriented to time, place,and person. Attention and concentration are intact by interview. Fund ofknowledge is average. Insight and judgment are limited by interview. Gaitand station are normal. No abnormal involuntary movement.ASSESSMENT OF PROGRESSElizabeth has not made adequate improvement in her mood. She is not yetstable for discharge from the hospital. She will benefit from furtherinpatient treatment to improve mood, insight and coping skills further.TREATMENT CHANGESNo change. Continue medication and psychosocial treatment.DIAGNOSISMajor depressive disorder, recurrent, severe, without psychotic features.VITAL SIGNSBlood pressure 166/77, pulse is 98, respirations 16.ANNETTA RUIZ, ALEJANDRO 12/20/2017 14:18 [id number] 12/20/2017 14:49 REO/MODLElectronically Signed By Annetta Ruiz M.D. on 20 Dec 2017 19:37:56 GMT Normal [facility] Lipid Panelon 12-20-2017 Cholesterol in HDL mass conc 70 mg/dL High 40-59 [facility] Comment on above: Performed By: #### L IPID, TSH ####Unless otherwise noted, all testing performed by [facility].[place], [place] [phone]: [id number] Director: Melva Escamilla M.D. Cholesterol in LDL mass conc 17 mg/dL Normal 10-150 [facility] Comment on above: Performed By: #### L IPID, TSH ####Unless otherwise noted, all testing performed by [address] [phone]: [id number] Director: Melva Escamilla M.D. Cholesterol in VLDL mass conc 24 mg/dL Normal 5-40 [facility] Comment on above: Performed By: #### L IPID, TSH ####Unless otherwise noted, all testing performed by [address] [phone]: [id number] Director: Melva Escamilla M.D. Cholesterol mass conc 111 mg/dL Normal 100-[address] [facility] Comment on above: Performed By: #### L IPID, TSH ####Unless otherwise noted, all testing performed by [address] [phone]: [id number] Director: Melva Escamilla M.D. Cholesterol.total/Cho lesterol in HDL mass ratio 1.6 {ratio} Low 3.2-5.0 [facility] Comment on above: Result Comment: Richard cason Coronary Heart Disease Risk Factor (CHDRF):Average risk= 4.41/2 Average risk= 3.32 times Average risk= 7.1 Performed By: #### L IPID, TSH ####Unless otherwise noted, all testing performed by [address] [phone]: [id number] Director: Melva Escamilla M.D. Triglyceride mass conc 120 mg/dL Normal 25-120 [facility] Comment on above: Performed By: #### L IPID, TSH ####Unless otherwise noted, all testing performed by [address], [place] [phone]: [id number] Director: Melva Escamilla M.D. TSHon 12-20-2017 Thyrotropin Qn 0.77 uIU/mL Normal 0.320-5.000 [place] Comment on above: Result Comment: Samp les from patients routinely receiving high dose biotin therapy(100-300 mg/day) may show falsely decreased results. Please correlateclinically. Performed By: #### L IPID, TSH ####Unless otherwise noted, all testing performed by [address] [phone]: [id number] Director: Melva Escamilla M.D. Urinalysis, Routineon 2017 Bacteria LM.HPF #/area (Urine sed) Rare Normal NS;RARE [facility] Comment on above: Performed By: #### L IPID, TSH ####Unless otherwise noted, all testing performed by [address] [phone]: [id number] Director: Melva Escamilla M.D. Bilirubin,Urine Negative Normal NEG;NEGATIV E [facility] Comment on above: Performed By: #### L IPID, TSH ####Unless otherwise noted, all testing performed by [address] [phone]: [id number] Director: Melva Escamilla M.D. Blood,Urine Negative Normal NEG;NEGATIV E [facility] Comment on above: Performed By: #### L IPID, TSH ####Unless otherwise noted, all testing performed by [address] [phone]: [id number] Director: Melva Escamilla M.D. Character Clear Normal [facility] Comment on above: Performed By: #### L IPID, TSH ####Unless otherwise noted, all testing performed by [place] [phone]: [id number] Director: Melva Escamilla M.D. Color Nom (U) Altagracia Normal [facility] Comment on above: Performed By: #### L IPID, TSH ####Unless otherwise noted, all testing performed by [address]8[address]CLIA: [id number] Director: Melva Escamilla M.D. Glucose Ql (U) Negative Normal NEG;NEGATIV E [facility] Comment on above: Performed By: #### L IPID, TSH ####Unless otherwise noted, all testing performed by [place] [address]CLIA: [id number] Director: Melva Escamilla M.D. Ketone,Urine Negative Normal NEG;NEGATIV E [facility] Comment on above: Performed By: #### L IPID, TSH ####Unless otherwise noted, all testing performed by [address]8[address]CLIA: [id number] Director: Melva Escamilla M.D. Leuk.Esterase,Urine Small Abnormal Negative [facility] Comment on above: Performed By: #### L IPID, TSH ####Unless otherwise noted, all testing performed by [place] [phone]: [id number] Director: Melva Escamilla M.D. Nitrite,Urine CANNOT RESULT DUE TO COLOR INTERFERENCE. Normal [facility] Comment on above: Performed By: #### L IPID, TSH ####Unless otherwise noted, all testing performed by [address]8509CLIA: [id number] Director: Melva Escamilla M.D. pH Test strip (U) CANNOT RESULT DUE TO COLOR INTERFERENCE. Normal [facility] Comment on above: Performed By: #### L IPID, TSH ####Unless otherwise noted, all testing performed by [address]8[address]CLIA: [id number] Director: Melva Escamilla M.D. Protein,Urine Negative Normal NEG;NEGATIV E [facility] Comment on above: Performed By: #### L IPID, TSH ####Unless otherwise noted, all testing performed by [address]8509CLIA: [id number] Director: Melva Escamilla M.D. RBC LM.HPF #/area (Urine sed) /[HPF] Normal 0-5 [facility] Comment on above: Performed By: #### L IPID, TSH ####Unless otherwise noted, all testing performed by [address]8509CLIA: [id number] Director: Melva Escamilla M.D. Specific University,Urine 1.008 Normal 1.003-1.029 [facility] Comment on above: Performed By: #### L IPID, TSH ####Unless otherwise noted, all testing performed by [address] [phone]: [id number] Director: Melva Escamilla M.D. Squamous Epithelial 3 /HPF Normal 0-40 [facility] Comment on above: Performed By: #### L IPID, TSH ####Unless otherwise noted, all testing performed by [address] [phone]: [id number] Director: Melva Escamilla M.D. Urobilinogen,Urine CANNOT RESULT DUE TO COLOR INTERFERENCE. Normal [facility] Comment on above: Performed By: #### L IPID, TSH ####Unless otherwise noted, all testing performed by [address] [phone]: [id number] Director: Melav Escamilla M.D. WBC,Urine 3 /HPF Normal 0-5 [facility] Comment on above: Performed By: #### L IPID, TSH ####Unless otherwise noted, all testing performed by [address] [phone]: [id number] Director: Melva Escamilla M.D. Glucose, POCon 12-19-2017 Glucose mass conc 292 mg/dL High 80-115 [facility] Comment on above: Performed By: #### L IPID, TSH ####Unless otherwise noted, all testing performed by [address] [phone]: [id number] Director: Melva Escamilla M.D. Glucose mass conc 185 mg/dL High [address] Comment on above: Performed By: #### L IPID, TSH ####Unless otherwise noted, all testing performed by [address] [phone]: [id number] Director: Melva Escamilla M.D. Glucose mass conc 260 mg/dL High [address] [place] [address] Comment on above: Performed By: #### L IPID, TSH ####Unless otherwise noted, all testing performed by [address]8[address]CLIA: [id number] Director: Melva Escamilla M.D. Glucose, POCon 12-10-2017 Glucose mass conc 297 mg/dL [address] Comment on above: Performed By: #### L IPID, TSH ####Unless otherwise noted, all testing performed by [address]8[address]CLIA: [id number] Director: Melva Escamilla M.D. Glucose mass conc 118 mg/dL [address] Comment on above: Performed By: #### L IPID, TSH ####Unless otherwise noted, all testing performed by [address]8[address]CLIA: [id number] Director: Melva Escamilla M.D. Glucose, POCon 12-09-2017 Glucose mass conc 167 mg/dL [address] Comment on above: Performed By: #### L IPID, TSH ####Unless otherwise noted, all testing performed by [facility] [address] [phone]: [id number] Director: Melva Escamilla M.D. Glucose mass conc 224 mg/dL High 80-115 [facility] Comment on above: Performed By: #### L IPID, TSH ####Unless otherwise noted, all testing performed by [place] [address]CLIA: [id number] Director: Melva Escamilla M.D. Glucose mass conc 286 mg/dL High [address] Comment on above: Performed By: #### L IPID, TSH ####Unless otherwise noted, all testing performed by [address]8[address]CLIA: [id number] Director: Melva Escamilla M.D. Glucose mass conc 148 mg/dL High [address] [place] [address] Comment on above: Performed By: #### L IPID, TSH ####Unless otherwise noted, all testing performed by [place] [address]CLIA: [id number] Director: Melva Escamilla M.D. Ferritinon 12-08-2017 Ferritin [Mass/volume] in Serum or Plasma 12 ng/mL Low 13-150 [facility] Comment on above: Result Comment: Samp les from patients routinely receiving high dose biotin therapy(100-300 mg/day) may show falsely decreased results. Please correlateclinically. Performed By: #### G LUX ####Unless otherwise noted, all testing performed by [place] [address]CLIA: [id number] Director: Melva Escamilla M.D. Glucose, POCon 12-08-2017 Glucose mass conc 235 mg/dL High [address] [place] [address] Comment on above: Performed By: #### G LUX ####Unless otherwise noted, all testing performed by [address] [phone]: [id number] Director: Melva Escamilla M.D. Glucose mass conc 185 mg/dL High [address] Comment on above: Performed By: #### G LUX ####Unless otherwise noted, all testing performed by [address] [phone]: [id number] Director: Melva Escamilla M.D. Glucose mass conc 300 mg/dL High [address] [place] [address] Comment on above: Performed By: #### G LUX ####Unless otherwise noted, all testing performed by [address] [phone]: [id number] Director: Melva Escmailla M.D. Glucose mass conc 151 mg/dL High [address] [place] [address] Comment on above: Performed By: #### G LUX ####Unless otherwise noted, all testing performed by [address] [phone]: [id number] Director: Melva Escamilla M.D. History And Physical-Dictate don 12-08-2017 History And Physical-Dictated [address] [address]GXEYELO CAREY [id number] 5ADMIT 12/01/2017HISTORY AND PHYSICALIDENTIFYING INFORMATIONElo Gray is a 61-year-old female residing in [place], [place].HISTORY OF PRESENT ILLNESSPatient was brought to the [facility] after the patient wasseen by a therapist due to uncontrollable desire to commit suicide. Thepatient was admitted with application for emergency admission signed byemergency department physician from the [facility]. Thepatient was also seen by pre-screener from [facility] and had expressed concern about the patient's ongoing deterioratingemotional state and repeated statements of hurting herself by taking anoverdose of pills.The patient stated that since August, she had been under stress as medical andpsychiatric medication had been changed and that had a significant impact onher. The patient claimed that she has been feeling increasingly down,depressed, has been crying a lot, and has said her thoughts have been gettingincreasingly worse. She admitted disturbance in sleep and appetite patterns.She has been crying a lot and claimed that, I do not need to feel this way.The patient had been living in a mobile home with 's careprovider and stated that there was an issue about a pedophile living in [facility] and, when reported by the patient to the authorities, the patienthad received some threats and that made her depression get increasingly worse.The patient claimed that her medical problems had taken a toll on her and isfeeling useless.The patient stated that she had lost interest and motivation. She had noenergy and claimed that she had not been able to take care of the house andhas been lying on the couch all day. The patient had made the statement thatshe does not have much reason to live and that nobody would miss if she wasgone.The patient has a long history of psychiatric hospitalizations, treatment,and, considering her deteriorating emotional state and refusal to contract forthe safety, was admitted for further evaluation and treatment.PAST HISTORYPatient [facility] a [facility] per Psychiatry, inJune 2018. [facility] [place] [place].FAMILY HISTORYBiological mother from pancreatic cancer in 2010. Father of lungcancer in 2003. The patient has 1 biological brother living in [place] and abiological sister living in [place]. The patient stated that her husbanddied 2 years ago. The patient has 2 daughters residing in [facility].SOCIAL HISTORYPatient had worked for a [employer] for 10 years. She subsequently attended[employer] for 2 years, taking classes in [place], and had worked in [employer] for 4 years. She has been receiving Social SecurityDisability benefits since 2007.The patient denied street drug or alcohol abuse.PAST MEDICAL HISTORYThe patient has history of diabetes mellitus, coronary artery disease, COPD.MENTAL STATUS EXAMINATIONElo Gray is a 61-year-old female lying in the bed, was sad,tearful on approach. The patient looking somewhat older than stated age, asshe has no teeth or dentures. She admitted a suicidal plan, intent, andthought. No delusions or auditory or visual hallucinations noted. Her affectis flat. Speech is coherent, non spontaneous, somewhat goal directed. Shehad verbalized feelings of hopelessness, helplessness, worthlessness.Attention and concentration span poor. Memory of recent and remote eventsintact. Intelligence average.DIAGNOSTIC IMPRESSION1. Major depression, recurrent.2. Diabetes mellitus.3. Coronary artery disease.4. Chronic obstructive pulmonary disease.PHYSICAL EXAMINATIONConstitutional : Height 5 feet, weight 157 pounds, BMI 30.66.Vital signs: Temperature 98.7, pulse 66, blood pressure 124/74, fudlrrpnksjw94.LABORATORY DATAChemistry unremarkable. Hematology revealed low hemoglobin, hematocrit, MCH,MCHC.REVIEW OF SYSTEMSTen systems were reviewed. No significant findings.General appearance: Elo Gray is a 61-year-old female,ambulatory, alert, oriented.Skin and mucous membranes: No lesions.Lymphatics: No lymphadenopathy.Skeletal/ extremities: Normal range of motion.Head: Normocephalic, atraumatic.Ears: No discharge noted.Eyes: Pupils round, equal, regular.Nose: No discharge noted.Mouth/pharynx: Stem mucosa.Neck: Supple.Respiratory: Clear to auscultation.Cardiovascul ar: Normal heart sounds.Abdomen: Soft, nontender.Neurological: Unremarkable.PLANRoutine lab work. SP #2 for unpredictable behavior. She is explained indetail of the current diagnostic impression and the role of the prescribedmedications, known indication, adverse effects, contraindications, andalternatives to treatment. She will continue Cymbalta 60 mg in the morningwith Remeron 30 mg at bedtime. She will be seen in individual supportivetherapy. We will encourage her to participate in group therapy and activitiestherapy. We will monitor vital signs closely. We will monitor blood sugar.YEISON PIKE, ALEJANDRO 12/02/2017 19:45 [id number] 12/02/2017 20:54 YKD/MODLElectronically Signed By Yeison Pike M.D. on 04 Dec 2017 14:30:37 GMT Normal [facility] Protein mass conc [facility], [place] [address]BDIQ ELO GRAY [facility] [id number] 1954DATE 12/08/2017PROGRESS NOTEPatient was seen individually. Case discussed with the nursing staff.Medical records were reviewed.Patient states that she had been treated with mood stabilizers in the past andlately she had been experiencing mood swings, has difficulty controlling heranger, frustration.Patient is spending time in the dayroom area, is seclusive. She has angry-looking facial expression. She has poor impulse control, low frustrationtolerance.Disc ussed at length regarding use of mood stabilizer, Latuda 20 mg a.m. Shewas explained in detail the role of the prescribed medication, knownindication, adverse effect, contraindication, alternatives to treatment.Will continue supportive therapy. She is encouraged to take care of the ADLsand to participate in group therapy, activities therapy.PLANFurther observation.YEISON PIKE, ALEJANDRO 12/08/2017 12:02 [id number] 12/08/2017 12:31 YKD/MODLElectronically Signed By Yeison Pike M.D. on 19 Dec 2017 14:16:29 GMT Normal [facility] Iron, Totalon 12-08-2017 Iron, Total 34 mcg/dL Low 50-170 [facility] Comment on above: Performed By: #### G LUX ####Unless otherwise noted, all testing performed by [address] [phone]: [id number] Director: Melva Escamilla M.D. Transferrinon 12-08-2017 Transferrin mass conc 294.0 mg/dL Normal 212.0-360.0 [facility] Comment on above: Performed By: #### G LUX ####Unless otherwise noted, all testing performed by [address] [phone]: [id number] Director: Melva Escamilla M.D. Vitamin B12 and Folateson Cobalamin (Vitamin B12) mass conc 472 pg/mL Normal 193-986 [facility] Comment on above: Performed By: #### G LUX ####Unless otherwise noted, all testing performed by [address] [phone]: [id number] Director: Melva Escamilla M.D. Folate 9.9 ng/mL Normal 3.1-17.5 [facility] Comment on above: Performed By: #### G LUX ####Unless otherwise noted, all testing performed by [address] [phone]: [id number] Director: Melva Escamilla M.D. Culture, Urineon 12-07-2017 Culture, Urine Test Name: Culture, UrineCulture Status: FinalCulture Report: GrowthMicro Source: Urine - clean catchORGANISM ID: 1 - 50,000-75,000 CFU/ml STREPTOCOCCUS AGALACTIAE - (GROUP B)ANTIBIOTIC INTERPRETATION ANTONIA STATUSAmpicillin S <= 0.25 FBenzylpenicillin (other) S <= 0.06 FClindamycin R >= 1 FVancomycin S 0.5 F Normal [facility] Comment on above: Performed By: #### G LUX ####Unless otherwise noted, all testing performed by [place] [id number]: [id number] Director: Melva Escamilla M.D. Glucose, POCon 12-07-2017 Glucose mass conc 238 mg/dL High [address] Comment on above: Performed By: #### T 4TTL, FT4 ####Unless otherwise noted, all testing performed by [place] [address]CLIA: [id number] Director: Melva Escamilla M.D. Glucose mass conc 234 mg/dL High [address] [place] [address] Comment on above: Performed By: #### T 4TTL, FT4 ####Unless otherwise noted, all testing performed by [place] [address]CLIA: [id number] Director: Melva Escamilla M.D. Glucose mass conc 160 mg/dL [address] Comment on above: Performed By: #### T 4TTL, FT4 ####Unless otherwise noted, all testing performed by [place] [address]CLIA: [id number] Director: Melva Escamilla M.D. Glucose mass conc 387 mg/dL High [address] [place] [address] Comment on above: Performed By: #### T 4TTL, FT4 ####Unless otherwise noted, all testing performed by [address], [place] [phone]: [id number] Director: Melva Escamilla M.D. Glucose mass conc 190 mg/dL High 80-115 [facility] Comment on above: Performed By: #### T 4TTL, FT4 ####Unless otherwise noted, all testing performed by [address] [phone]: [id number] Director: Melva Escamilla M.D. Urinalysis, Routineon 2017 Bacteria LM.HPF #/area (Urine sed) Rare Normal NS;RARE [facility] Comment on above: Performed By: #### G LUX ####Unless otherwise noted, all testing performed by [address] [phone]: [id number] Director: Melva Escamilla M.D. Bilirubin,Urine Negative Normal NEG;NEGATIV E [facility] Comment on above: Performed By: #### G LUX ####Unless otherwise noted, all testing performed by [address] [phone]: [id number] Director: Melva Escamilla M.D. Blood,Urine Negative Normal NEG;NEGATIV E [facility] Comment on above: Performed By: #### G LUX ####Unless otherwise noted, all testing performed by [address] [phone]: [id number] Director: Melva Escamilla M.D. Character Clear Normal [facility] Comment on above: Performed By: #### G LUX ####Unless otherwise noted, all testing performed by [address] [phone]: [id number] Director: Melva Escamilla M.D. Color Nom (U) Yellow Normal [facility] Comment on above: Performed By: #### G LUX ####Unless otherwise noted, all testing performed by [place] [address]CLIA: [id number] Director: Melva Escamilla M.D. Glucose Ql (U) Negative Normal NEG;NEGATIV E [facility] Comment on above: Performed By: #### G LUX ####Unless otherwise noted, all testing performed by [address]8[address]CLIA: [id number] Director: Melva Escamilla M.D. Ketone,Urine Negative Normal NEG;NEGATIV E [facility] Comment on above: Performed By: #### G LUX ####Unless otherwise noted, all testing performed by [address]8[address]CLIA: [id number] Director: Melva Escamilla M.D. Leuk.Esterase,Urine Large Abnormal Negative [facility] Comment on above: Performed By: #### G LUX ####Unless otherwise noted, all testing performed by [address]8509CLIA: [id number] Director: Melva Escamilla M.D. Nitrite,Urine Negative Normal NEG;NEGATIV E [facility] Comment on above: Performed By: #### G LUX ####Unless otherwise noted, all testing performed by [address] [phone]: [id number] Director: Melva Escamilla M.D. pH Test strip (U) 5.0 [pH] Normal 4.5-8.0 [facility] Comment on above: Performed By: #### G LUX ####Unless otherwise noted, all testing performed by [address] [phone]: [id number] Director: Melva Escamilla M.D. Protein,Urine Negative Normal NEG;NEGATIV E [facility] Comment on above: Performed By: #### G LUX ####Unless otherwise noted, all testing performed by [address] [phone]: [id number] Director: Melva Escamilla M.D. RBC LM.HPF #/area (Urine sed) /[HPF] Normal 0-5 [facility] Comment on above: Performed By: #### G LUX ####Unless otherwise noted, all testing performed by [address] [phone]: [id number] Director: Melva Escamilla M.D. Specific University,Urine 1.012 Normal 1.003-1.029 [facility] Comment on above: Performed By: #### G LUX ####Unless otherwise noted, all testing performed by [address] [phone]: [id number] Director: Melva Escamilla M.D. Squamous Epithelial 1 /HPF Normal 0-40 [facility] Comment on above: Performed By: #### G LUX ####Unless otherwise noted, all testing performed by [address] [phone]: [id number] Director: Melva Escamilla M.D. Urobilinogen,Urine < 2.0 Normal <2 [facility] Comment on above: Performed By: #### G LUX ####Unless otherwise noted, all testing performed by [address] [phone]: [id number] Director: Melva Escamilla M.D. WBC,Urine 9 /HPF High 0-5 [facility] Comment on above: Performed By: #### G LUX ####Unless otherwise noted, all testing performed by [address] [phone]: [id number] Director: Melva Escamilla M.D. Glucose, POCon 12-06-2017 Glucose mass conc 267 mg/dL High 80-115 [facility] Comment on above: Performed By: #### T 4TTL, FT4 ####Unless otherwise noted, all testing performed by [address] [phone]: [id number] Director: Melva Escamilla M.D. Glucose mass conc 169 mg/dL High 80-115 [facility] Comment on above: Performed By: #### T 4TTL, FT4 ####Unless otherwise noted, all testing performed by [address] [phone]: [id number] Director: Melva Escamilla M.D. Glucose mass conc 330 mg/dL High [address] [place] [address] Comment on above: Performed By: #### T 4TTL, FT4 ####Unless otherwise noted, all testing performed by [address] [phone]: [id number] Director: Melva Escamilla M.D. Glucose mass conc 179 mg/dL High [address] [place] [address] Comment on above: Performed By: #### T 4TTL, FT4 ####Unless otherwise noted, all testing performed by [address]8509CLIA: [id number] Director: Melva Escamilla M.D. Glucose, POCon 12-05-2017 Glucose mass conc 233 mg/dL [address] Comment on above: Performed By: #### T 4TTL, FT4 ####Unless otherwise noted, all testing performed by [address] [phone]: [id number] Director: Melva Escamilla M.D. Glucose mass conc 170 mg/dL [address] Comment on above: Performed By: #### T 4TTL, FT4 ####Unless otherwise noted, all testing performed by [address]8509CLIA: [id number] Director: Melva Escamilla M.D. Glucose mass conc 242 mg/dL [address] Comment on above: Performed By: #### T 4TTL, FT4 ####Unless otherwise noted, all testing performed by [address] [phone]: [id number] Director: Melva Escamilla M.D. Glucose mass conc 113 mg/dL Normal 80-115 [facility] Comment on above: Performed By: #### T 4TTL, FT4 ####Unless otherwise noted, all testing performed by [address] [phone]: [id number] Director: Melva Escamilla M.D. Glucose, POCon 12-04-2017 Glucose mass conc 159 mg/dL High 80-115 [facility] Comment on above: Performed By: #### T 4TTL, FT4 ####Unless otherwise noted, all testing performed by [address] [phone]: [id number] Director: Melva Escamilla M.D. Glucose mass conc 176 mg/dL High 80-115 [facility] Comment on above: Performed By: #### T 4TTL, FT4 ####Unless otherwise noted, all testing performed by [address] [phone]: [id number] Director: Melva Escamilla M.D. Glucose mass conc 404 mg/dL Critically high 80-115 [facility] Comment on above: Performed By: #### T 4TTL, FT4 ####Unless otherwise noted, all testing performed by [address] [phone]: [id number] Director: Melva Escamilla M.D. Glucose mass conc 158 mg/dL High [address] [place] [address] Comment on above: Performed By: #### T 4TTL, FT4 ####Unless otherwise noted, all testing performed by [address] [phone]: [id number] Director: Melva Escamilla M.D. Glucose, POCon 12-03-2017 Glucose mass conc 167 mg/dL High [address] [place] [address] Comment on above: Performed By: #### T 4TTL, FT4 ####Unless otherwise noted, all testing performed by [address]8509CLIA: [id number] Director: Melva Escamilla M.D. Glucose mass conc 287 mg/dL High [address] [place] [address] Comment on above: Performed By: #### T 4TTL, FT4 ####Unless otherwise noted, all testing performed by [address] [phone]: [id number] Director: Melva Escamilla M.D. Glucose mass conc 354 mg/dL [address] Comment on above: Performed By: #### T 4TTL, FT4 ####Unless otherwise noted, all testing performed by [address]8509CLIA: [id number] Director: Melva Escamilla M.D. Glucose mass conc 236 mg/dL High [address] [place] [address] Comment on above: Performed By: #### G LUX ####Unless otherwise noted, all testing performed by [address] [phone]: [id number] Director: Melva Escamilla M.D. Glucose mass conc 213 mg/dL High 80-115 [facility] Comment on above: Performed By: #### G LUX ####Unless otherwise noted, all testing performed by [address] [phone]: [id number] Director: Melva Escamilla M.D. Urinalysis, Routineon 2017 Bacteria LM.HPF #/area (Urine sed) Rare Normal NS;RARE [facility] Comment on above: Performed By: #### G LUX ####Unless otherwise noted, all testing performed by [address] [phone]: [id number] Director: Melva Escamilla M.D. Bilirubin,Urine Negative Normal NEG;NEGATIV E [facility] Comment on above: Performed By: #### G LUX ####Unless otherwise noted, all testing performed by [address] [phone]: [id number] Director: Melva Escamilla M.D. Blood,Urine Negative Normal NEG;NEGATIV E [facility] Comment on above: Performed By: #### G LUX ####Unless otherwise noted, all testing performed by [address] [phone]: [id number] Director: Melva Escamilla M.D. Cast, Hyaline 1 /LPF Normal 0-5 [facility] Comment on above: Performed By: #### G LUX ####Unless otherwise noted, all testing performed by [address]8509CLIA: [id number] Director: Melva Escamilla M.D. Character Clear Normal [facility] Comment on above: Performed By: #### G LUX ####Unless otherwise noted, all testing performed by [address]8[address]CLIA: [id number] Director: Melva Escamilla M.D. Color Nom (U) Straw Normal [facility] Comment on above: Performed By: #### G LUX ####Unless otherwise noted, all testing performed by [address]8509CLIA: [id number] Director: Melva Escamilla M.D. Glucose Ql (U) Negative Normal NEG;NEGATIV E [facility] Comment on above: Performed By: #### G LUX ####Unless otherwise noted, all testing performed by [address]8509CLIA: [id number] Director: Melva Escamilla M.D. Ketone,Urine Negative Normal NEG;NEGATIV E [facility] Comment on above: Performed By: #### G LUX ####Unless otherwise noted, all testing performed by [address]8509CLIA: [id number] Director: Melva Escamilla M.D. Leuk.Esterase,Urine Small Abnormal Negative [facility] Comment on above: Performed By: #### G LUX ####Unless otherwise noted, all testing performed by [address] [phone]: [id number] Director: Melva Escamilla M.D. Nitrite,Urine Negative Normal NEG;NEGATIV E [facility] Comment on above: Performed By: #### G LUX ####Unless otherwise noted, all testing performed by [address] [phone]: [id number] Director: Melva Escamilla M.D. pH Test strip (U) 6.0 [pH] Normal 4.5-8.0 [facility] Comment on above: Performed By: #### G LUX ####Unless otherwise noted, all testing performed by [address] [phone]: [id number] Director: Melva Escamilla M.D. Protein,Urine Negative Normal NEG;NEGATIV E [facility] Comment on above: Performed By: #### G LUX ####Unless otherwise noted, all testing performed by [address] [phone]: [id number] Director: Melva Escamilla M.D. Specific University,Urine 1.005 Normal 1.003-1.029 [facility] Comment on above: Performed By: #### G LUX ####Unless otherwise noted, all testing performed by [address] [phone]: [id number] Director: Melva Escamilla M.D. Squamous Epithelial 1 /HPF Normal 0-40 [facility] Comment on above: Performed By: #### G LUX ####Unless otherwise noted, all testing performed by [address] [phone]: [id number] Director: Melva Escamilla M.D. Trans. Epithelial < 1 Normal 0-3 [facility] Comment on above: Performed By: #### G LUX ####Unless otherwise noted, all testing performed by [address] [phone]: [id number] Director: Melva Escamilla M.D. Urobilinogen,Urine < 2.0 Normal <2 [facility] Comment on above: Performed By: #### G LUX ####Unless otherwise noted, all testing performed by [address] [phone]: [id number] Director: Melva Escamilla M.D. WBC,Urine 4 /HPF Normal 0-5 [facility] Comment on above: Performed By: #### G LUX ####Unless otherwise noted, all testing performed by [address] [phone]: [id number] Director: Melva Escamilla M.D. CBC with Diffon 12-02-2017 Basophils Auto #/vol (Bld) 0.1 K/mcL Normal 0-0.2 [facility] Comment on above: Performed By: #### G LUX ####Unless otherwise noted, all testing performed by [place] [phone]: [id number] Director: Melva Escamilla M.D. Basophils/100 WBC Auto (Bld) 1.1 % Normal [facility] Comment on above: Performed By: #### G LUX ####Unless otherwise noted, all testing performed by [address] [phone]: [id number] Director: Melva Escamilla M.D. Eosinophils Auto #/vol (Bld) 0.2 K/mcL Normal 0-0.5 [facility] Comment on above: Performed By: #### G LUX ####Unless otherwise noted, all testing performed by [place] [address]CLIA: [id number] Director: Melva Escamilla M.D. Eosinophils/100 WBC Auto (Bld) 3.5 % Normal [facility] Comment on above: Performed By: #### G LUX ####Unless otherwise noted, all testing performed by [place] [address]CLIA: [id number] Director: Melva Escamilla M.D. Erythrocyte distribution width Auto Ratio (RBC) 16.0 % High 10.0-14.4 [facility] Comment on above: Performed By: #### G LUX ####Unless otherwise noted, all testing performed by [place] [id number]: [id number] Director: Melva Escamilla M.D. Hematocrit Auto Volume Fraction (Bld) 31.8 % Low 34.4-44.8 [facility] Comment on above: Performed By: #### G LUX ####Unless otherwise noted, all testing performed by [address] [phone]: [id number] Director: Melva Escamilla M.D. Hemoglobin mass conc (Bld) 10.4 g/dL Low 11.6-15.4 [facility] Comment on above: Performed By: #### G LUX ####Unless otherwise noted, all testing performed by [address] [phone]: [id number] Director: Melva Escamilla M.D. Lymphocytes Auto #/vol (Bld) 1.4 K/mcL Normal 1.0-3.7 [facility] Comment on above: Performed By: #### G LUX ####Unless otherwise noted, all testing performed by [address] [phone]: [id number] Director: Melva Escamilla M.D. Lymphocytes/100 WBC Auto (Bld) 23.1 % Normal [facility] Comment on above: Performed By: #### G LUX ####Unless otherwise noted, all testing performed by [address] [phone]: [id number] Director: Melva Escamilla M.D. MCH Auto Entitic mass (RBC) 27.4 pg Low 27.9-33.9 [facility] Comment on above: Performed By: #### G LUX ####Unless otherwise noted, all testing performed by [address] [phone]: [id number] Director: Melva Escamilla M.D. MCHC Auto mass conc (RBC) 32.6 g/dL Low 33.1-35.1 [facility] Comment on above: Performed By: #### G LUX ####Unless otherwise noted, all testing performed by [address] [phone]: [id number] Director: Melva Escamilla M.D. MCV Auto Entitic volume (RBC) 84.1 fL Normal 82.6-98.9 [facility] Comment on above: Performed By: #### G LUX ####Unless otherwise noted, all testing performed by [place] [phone]: [id number] Director: Melva Escamilla M.D. Monocytes Auto #/vol (Bld) 0.7 K/mcL High 0.1-0.6 [facility] Comment on above: Performed By: #### G LUX ####Unless otherwise noted, all testing performed by [place] [phone]: [id number] Director: Melva Escamilla M.D. Monocytes/100 WBC Auto (Bld) 12.3 % Normal [facility] Comment on above: Performed By: #### G LUX ####Unless otherwise noted, all testing performed by [place] [phone]: [id number] Director: Melva Escamilla M.D. Neutrophils Auto #/vol (Bld) 3.5 K/mcL Normal 1.2-6.9 [facility] Comment on above: Performed By: #### G LUX ####Unless otherwise noted, all testing performed by [facility] [address] [phone]: [id number] Director: Melva Escamilla M.D. Platelet mean volume Auto Entitic volume (Bld) 7.9 fL Normal 7.0-10.6 [facility] Comment on above: Performed By: #### G LUX ####Unless otherwise noted, all testing performed by [address] [phone]: [id number] Director: Melva Escamilla M.D. Platelets Auto #/vol (Bld) 212 K/mcL Normal 162-402 [facility] Comment on above: Performed By: #### G LUX ####Unless otherwise noted, all testing performed by [address] [phone]: [id number] Director: Melva Escamilla M.D. RBC Auto #/vol (Bld) 3.78 M/mcL Normal 3.7-5.0 [facility] Comment on above: Performed By: #### G LUX ####Unless otherwise noted, all testing performed by [address] [phone]: [id number] Director: Melva Escamilla M.D. Segmented Neut % 60.0 % Normal [place] Comment on above: Performed By: #### G LUX ####Unless otherwise noted, all testing performed by [address] [phone]: [id number] Director: Melva Escamilla M.D. WBC Auto #/vol (Bld) 5.9 K/mcL Normal 3.4-10.6 [facility] Comment on above: Performed By: #### G LUX ####Unless otherwise noted, all testing performed by [address] [phone]: [id number] Director: Melva Escamilla M.D. Comprehensive Metabolic Pane [facility] 12-02-2017 Albumin mass conc 2.7 g/dL Low 3.2-5.2 [facility] Comment on above: Performed By: #### G LUX ####Unless otherwise noted, all testing performed by [address] [phone]: [id number] Director: Melva Escamilla M.D. ALP enzyme act/vol 98 U/L Normal 40-150 [facility] Comment on above: Performed By: #### G LUX ####Unless otherwise noted, all testing performed by [address] [phone]: [id number] Director: Melva Escamilla M.D. ALT enzyme act/vol 22 U/L Normal 14-65 [facility] Comment on above: Result Comment: This test result might be falsely depressed or falsely elevated onsamples drawn from patients taking Sulfasalazine and Sulfapyridine.Venipuncture should occur prior to taking either of these drugs. Performed By: #### G LUX ####Unless otherwise noted, all testing performed by [address] [phone]: [id number] Director: Melva Escamilla M.D. AST enzyme act/vol 17 U/L Normal 0-45 [facility] Comment on above: Result Comment: This test result might be falsely depressed or falsely elevated onsamples drawn from patients taking Sulfasalazine and Sulfapyridine.Venipuncture should occur prior to taking either of these drugs. Performed By: #### G LUX ####Unless otherwise noted, all testing performed by [address] [phone]: [id number] Director: Melva Escamilla M.D. Bilirubin mass conc 0.3 mg/dL Normal 0.3-1.2 [facility] Comment on above: Performed By: #### G LUX ####Unless otherwise noted, all testing performed by [address]CLIA: [id number] Director: Melva Escamilla M.D. Calcium mass conc 9.2 mg/dL Normal 8.4-10.2 [facility] Comment on above: Performed By: #### G LUX ####Unless otherwise noted, all testing performed by [address]8509CLIA: [id number] Director: Melva Escamilla M.D. Chloride molar conc 107 mmol/L Normal 98-108 [facility] Comment on above: Performed By: #### G LUX ####Unless otherwise noted, all testing performed by [address]8[address]CLIA: [id number] Director: Melva Escamilla M.D. CO2 molar conc 25 mmol/L Normal 21-32 [facility] Comment on above: Performed By: #### G LUX ####Unless otherwise noted, all testing performed by [address] [phone]: [id number] Director: Melva Escamilla M.D. Creatinine mass conc 0.73 mg/dL Normal 0.60-1.20 [facility] Comment on above: Performed By: #### G LUX ####Unless otherwise noted, all testing performed by [address] [phone]: [id number] Director: Melva Escamilla M.D. GFR/1.73 sq M predicted among blacks MDRD vol rate/area (S/P/Bld) mL/min/{1.73_m2} Normal [facility] Comment on above: Result Comment: Afri can Tongan GFR Calc Performed By: #### G LUX ####Unless otherwise noted, all testing performed by [address] [phone]: [id number] Director: Melva Escamilla M.D. GFR/1.73 sq M predicted among non-blacks MDRD vol rate/area (S/P/Bld) mL/min/{1.73_m2} Normal [facility] Comment on above: Result Comment: Non- GFR CalceGFR is an estimated Glomerular Filtration Rate based on the valueof the patient's serum creatinine. In outpatients, eGFR should be usedas a helpful tool in screening for CKD. In inpatients or patients withacute renal failure, eGFR represents the GFR at the moment of the drawand should be used with caution. Performed By: #### G LUX ####Unless otherwise noted, all testing performed by [address] [phone]: [id number] Director: Melva Escamilla M.D. Glucose mass conc 132 mg/dL High 70-99 [facility] Comment on above: Result Comment: This test result might be falsely depressed or falsely elevated onsamples drawn from patients taking Sulfasalazine and Sulfapyridine.Venipuncture should occur prior to taking either of these drugs. Performed By: #### G LUX ####Unless otherwise noted, all testing performed by [place] [phone]: [id number] Director: Melva Escamilla M.D. Potassium molar conc 4.0 mmol/L Normal 3.5-5.1 [facility] Comment on above: Performed By: #### G LUX ####Unless otherwise noted, all testing performed by [address]8509CLIA: [id number] Director: Melva Escamilla M.D. Protein mass conc 5.7 g/dL Low 6.0-8.0 [facility] Comment on above: Performed By: #### G LUX ####Unless otherwise noted, all testing performed by [address]8[address]CLIA: [id number] Director: Melva Escamilla M.D. Sodium molar conc 139 mmol/L Normal 135-145 [facility] Comment on above: Performed By: #### G LUX ####Unless otherwise noted, all testing performed by [place] [phone]: [id number] Director: Melva Escamilla M.D. Urea nitrogen mass conc 22 mg/dL Normal 8-25 [facility] Comment on above: Performed By: #### G LUX ####Unless otherwise noted, all testing performed by [address], [place] [phone]: [id number] Director: Melva Escamilla M.D. Glucose, POCon 12-02-2017 Glucose mass conc 296 mg/dL High 80-115 [facility] Comment on above: Performed By: #### G LUX ####Unless otherwise noted, all testing performed by [phone]: [id number] Director: Melva Escamilla M.D. Glucose mass conc 144 mg/dL High 80-115 [facility] Comment on above: Performed By: #### G LUX ####Unless otherwise noted, all testing performed by [address]8509CLIA: [id number] Director: Melva Escamilla M.D. Lipid Panelon 12-02-2017 Cholesterol in HDL mass conc 61 mg/dL High 40-59 [facility] Comment on above: Performed By: #### G LUX ####Unless otherwise noted, all testing performed by [address]8509CLIA: [id number] Director: Melva Escamilla M.D. Cholesterol in LDL mass conc 24 mg/dL Normal 10-150 [facility] Comment on above: Performed By: #### G LUX ####Unless otherwise noted, all testing performed by [place] [phone]: [id number] Director: Melva Escamilla M.D. Cholesterol in VLDL mass conc 23 mg/dL Normal 5-40 [facility] Comment on above: Performed By: #### G LUX ####Unless otherwise noted, all testing performed by [address] [phone]: [id number] Director: Melva Escamilla M.D. Cholesterol mass conc 108 mg/dL Normal 100-[address] [facility] Comment on above: Performed By: #### G LUX ####Unless otherwise noted, all testing performed by [address] [phone]: [id number] Director: Melva Escamilla M.D. Cholesterol.total/Cho lesterol in HDL mass ratio 1.8 {ratio} Low 3.2-5.0 [facility] Comment on above: Result Comment: Fema le Coronary Heart Disease Risk Factor (CHDRF):Average risk= 4.41/2 Average risk= 3.32 times Average risk= 7.1 Performed By: #### G LUX ####Unless otherwise noted, all testing performed by [address] [phone]: [id number] Director: Melva Escamilla M.D. Triglyceride mass conc 114 mg/dL Normal 25-120 [facility] Comment on above: Performed By: #### G LUX ####Unless otherwise noted, all testing performed by [address] [phone]: [id number] Director: Melva Escamilla M.D. TSHon 12-02-2017 Thyrotropin Qn 0.59 uIU/mL Normal 0.320-5.000 [place] Comment on above: Result Comment: Samp les from patients routinely receiving high dose biotin therapy(100-300 mg/day) may show falsely decreased results. Please correlateclinically. Performed By: #### G LUX ####Unless otherwise noted, all testing performed by [address] [phone]: [id number] Director: Melva Escamilla M.D. Culture, Urineon 08-09-2017 Culture, Urine Test Name: Culture, UrineCulture Status: FinalMicro Source: Urine - clean catchORGANISM ID: 1 - 10,000-25,000 CFU/ml ESCHERICHIA COLI AVOID fluoroquinolone treatment whenever possible. Risk of serious side effects may outweigh benefit.ANTIBIOTIC INTERPRETATION ANTONIA STATUSAmpicillin S <= 2 FAmp/Sulbactam S <= 2 FCefazolin S <= 4 FCefepime S <= 1 FCeftazidime S <= 1 FCeftriaxone S <= 1 FCiprofloxacin S <= 0.25 FGentamicin S <= 1 FNitrofurantoin S <= 16 FPiperacillin/Tazo S <= 4 FTobramycin S <= 1 FTrimeth/Sulfa S <= 20 F Normal [facility] Comment on above: Performed By: #### G LUX ####Unless otherwise noted, all testing performed by [address] [phone]: [id number] Director: Melva Escamilla M.D. Urinalysis, Routineon 2017 Bacteria LM.HPF #/area (Urine sed) Rare Normal NS;RARE [facility] Comment on above: Performed By: #### G LUX ####Unless otherwise noted, all testing performed by [address] [phone]: [id number] Director: Melva Escamilla M.D. Bilirubin,Urine Negative Normal NEG;NEGATIV E [facility] Comment on above: Performed By: #### G LUX ####Unless otherwise noted, all testing performed by [address] [phone]: [id number] Director: Melva Escamilla M.D. Blood,Urine Small Abnormal NEG;NEGATIV E [facility] Comment on above: Performed By: #### G LUX ####Unless otherwise noted, all testing performed by [address] [phone]: [id number] Director: Melva Escamilla M.D. Character Clear Normal [facility] Comment on above: Performed By: #### G LUX ####Unless otherwise noted, all testing performed by [address] [phone]: [id number] Director: Melva Escamilla M.D. Color Nom (U) Straw Normal [facility] Comment on above: Result Comment: The specimen was collected in a tube with the additives ethyl paraben,sodium propionate and chlorhexidine preservative. Detection ofurobilinogen and bilirubin maybe decreased due to their instability at RTor when exposed to light. Performed By: #### G LUX ####Unless otherwise noted, all testing performed by [address] [phone]: [id number] Director: Melva Escamilla M.D. Glucose Ql (U) Negative Normal NEG;NEGATIV E [facility] Comment on above: Performed By: #### G LUX ####Unless otherwise noted, all testing performed by [address] [phone]: [id number] Director: Melva Escamilla M.D. Ketone,Urine Negative Normal NEG;NEGATIV E [facility] Comment on above: Performed By: #### G LUX ####Unless otherwise noted, all testing performed by [address] [phone]: [id number] Director: Melva Escamilla M.D. Leuk.Esterase,Urine Moderate Abnormal Negative [facility] Comment on above: Performed By: #### G LUX ####Unless otherwise noted, all testing performed by [place] [phone]: [id number] Director: Melva Escamilla M.D. Nitrite,Urine Negative Normal NEG;NEGATIV E [facility] Comment on above: Performed By: #### G LUX ####Unless otherwise noted, all testing performed by [place] [phone]: [id number] Director: Melva Escamilla M.D. pH Test strip (U) 6.0 [pH] Normal 4.5-8.0 [facility] Comment on above: Performed By: #### G LUX ####Unless otherwise noted, all testing performed by [place] [phone]: [id number] Director: Melva Escamilla M.D. Protein,Urine Negative Normal NEG;NEGATIV E [facility] Comment on above: Performed By: #### G LUX ####Unless otherwise noted, all testing performed by [place] [phone]: [id number] Director: Melva Escamilla M.D. RBC,Urine 2 /HPF Normal 0-5 [facility] Comment on above: Performed By: #### G LUX ####Unless otherwise noted, all testing performed by [place] [phone]: [id number] Director: Melva Escamilla M.D. Specific University,Urine 1.005 Normal 1.003-1.029 [facility] Comment on above: Performed By: #### G LUX ####Unless otherwise noted, all testing performed by [address]8509CLIA: [id number] Director: Melva Escamilla M.D. Squamous Epithelial 1 /HPF Normal 0-40 [facility] Comment on above: Performed By: #### G LUX ####Unless otherwise noted, all testing performed by [address]8509CLIA: [id number] Director: Melva Escamilla M.D. Urobilinogen,Urine < 2.0 Normal <2 [facility] Comment on above: Performed By: #### G LUX ####Unless otherwise noted, all testing performed by [address] [phone]: [id number] Director: Melva Escamilla M.D. WBC,Urine 13 /HPF High 0-5 [facility] Comment on above: Performed By: #### G LUX ####Unless otherwise noted, all testing performed by [address], [place] [phone]: [id number] Director: Melva Escamilla M.D. Basic Metabolic Panelon 04-0 Calcium mass conc 8.7 mg/dL Normal 8.4-10.2 [facility] Comment on above: Performed By: #### G LUX ####Unless otherwise noted, all testing performed by [address] [phone]: [id number] Director: Melva Escamilla M.D. Chloride molar conc 109 mmol/L High 98-108 [facility] Comment on above: Performed By: #### G LUX ####Unless otherwise noted, all testing performed by [address] [phone]: [id number] Director: Melva Escamilla M.D. CO2 molar conc 26 mmol/L Normal 21-32 [facility] Comment on above: Performed By: #### G LUX ####Unless otherwise noted, all testing performed by [address] [phone]: [id number] Director: Melva Escamilla M.D. Creatinine mass conc 0.70 mg/dL Normal 0.60-1.20 [facility] Comment on above: Performed By: #### G LUX ####Unless otherwise noted, all testing performed by [address] [phone]: [id number] Director: Melva Escamilla M.D. GFR/1.73 sq M predicted among blacks MDRD vol rate/area (S/P/Bld) mL/min/{1.73_m2} Normal [facility] Comment on above: Result Comment: Afri can Tongan GFR Calc Performed By: #### G LUX ####Unless otherwise noted, all testing performed by [address] [phone]: [id number] Director: Melva Escamilla M.D. GFR/1.73 sq M predicted among non-blacks MDRD vol rate/area (S/P/Bld) mL/min/{1.73_m2} Normal [facility] Comment on above: Result Comment: Non- GFR CalceGFR is an estimated Glomerular Filtration Rate based on the valueof the patient's serum creatinine. In outpatients, eGFR should be usedas a helpful tool in screening for CKD. In inpatients or patients withacute renal failure, eGFR represents the GFR at the moment of the drawand should be used with caution. Performed By: #### G LUX ####Unless otherwise noted, all testing performed by [address] [phone]: [id number] Director: Melva Escamilla M.D. Glucose mass conc 206 mg/dL High 70-99 [facility] Comment on above: Result Comment: This test result might be falsely depressed or falsely elevated onsamples drawn from patients taking Sulfasalazine and Sulfapyridine.Venipuncture should occur prior to taking either of these drugs. Performed By: #### G LUX ####Unless otherwise noted, all testing performed by [address] [phone]: [id number] Director: Melva Escamilla M.D. Potassium molar conc 3.5 mmol/L Normal 3.5-5.1 [facility] Comment on above: Performed By: #### G LUX ####Unless otherwise noted, all testing performed by [address] [phone]: [id number] Director: Melva Escamilla M.D. Sodium molar conc 141 mmol/L Normal 135-145 [facility] Comment on above: Performed By: #### G LUX ####Unless otherwise noted, all testing performed by [address] [phone]: [id number] Director: Melva Escamilla M.D. Urea nitrogen mass conc 17 mg/dL Normal 8-25 [facility] Comment on above: Performed By: #### G LUX ####Unless otherwise noted, all testing performed by [place] [phone]: [id number] Director: Melva Escamilla M.D. Glucose, POCon 07-28-2017 Glucose mass conc 227 mg/dL High 80-115 [facility] Comment on above: Performed By: #### G LUX ####Unless otherwise noted, all testing performed by [address] [phone]: [id number] Director: Melva Escamilla M.D. Glucose mass conc 34 mg/dL Critically low 80-[address] [facility] Comment on above: Performed By: #### G LUX ####Unless otherwise noted, all testing performed by [address] [phone]: [id number] Director: Melva Escamilla M.D. APTTon 07-27-2017 aPTT 25 s Normal 23.0-34.0 [facility] Comment on above: Result Comment: Hari guajardo therapeutic range for PTT is 68-104 sec. Performed By: #### G LUX ####Unless otherwise noted, all testing performed by [place] [phone]: [id number] Director: Melva Escamilla M.D. Basic Metabolic Panelon 04-0 Calcium 8.8 mg/dL Normal 8.4-10.2 [facility] Comment on above: Performed By: #### G LUX ####Unless otherwise noted, all testing performed by [place] [phone]: [id number] Director: Melva Escamilla M.D. Chloride 110 mmol/L High 98-108 [facility] Comment on above: Performed By: #### G LUX ####Unless otherwise noted, all testing performed by [place] [phone]: [id number] Director: Melva Escamilla M.D. CO2 24 mmol/L Normal 21-32 [facility] Comment on above: Performed By: #### G LUX ####Unless otherwise noted, all testing performed by [place] [phone]: [id number] Director: Melva Escamilla M.D. Creatinine 0.88 mg/dL Normal 0.60-1.20 [facility] Comment on above: Performed By: #### G LUX ####Unless otherwise noted, all testing performed by [place] [phone]: [id number] Director: Melva Escamilla M.D. eGFR (black) mL/min/{1.73_m2} Normal [facility] Comment on above: Result Comment: Afri can Tongan GFR Calc Performed By: #### G LUX ####Unless otherwise noted, all testing performed by [address] [phone]: [id number] Director: Melva Escamilla M.D. eGFR (non-black) mL/min/{1.73_m2} Normal [facility] Comment on above: Result Comment: Non- GFR CalceGFR is an estimated Glomerular Filtration Rate based on the valueof the patient's serum creatinine. In outpatients, eGFR should be usedas a helpful tool in screening for CKD. In inpatients or patients withacute renal failure, eGFR represents the GFR at the moment of the drawand should be used with caution. Performed By: #### G LUX ####Unless otherwise noted, all testing performed by [address] [phone]: [id number] Director: Melva Escamilla M.D. Glucose 301 mg/dL High 70 - 99 mg/dL [facility] Glucose mass conc 301 mg/dL High 70-99 [facility] Comment on above: Result Comment: This test result might be falsely depressed or falsely elevated onsamples drawn from patients taking Sulfasalazine and Sulfapyridine.Venipuncture should occur prior to taking either of these drugs. Performed By: #### G LUX ####Unless otherwise noted, all testing performed by [address] [phone]: [id number] Director: Melva Escamilla M.D. Interpretation and review of laboratory results Abnormal Invalid Interpretation Code [facility] Potassium 3.5 mmol/L Normal 3.5-5.1 [facility] Comment on above: Performed By: #### G LUX ####Unless otherwise noted, all testing performed by [address] [phone]: [id number] Director: Melva Escamilla M.D. Sodium 139 mmol/L Normal 135-145 [facility] Comment on above: Performed By: #### G LUX ####Unless otherwise noted, all testing performed by [address] [phone]: [id number] Director: Melva Escamilla M.D. Urea nitrogen 22 mg/dL Normal 8-25 [facility] Comment on above: Performed By: #### G LUX ####Unless otherwise noted, all testing performed by [address] [phone]: [id number] Director: Melva Escamilla M.D. CBCon 07-27-2017 Erythrocytes (RBC) 3.89 M/mcL Invalid Interpretation Code 3.7 - 5.0 [facility] Hematocrit (HCT) 34.8 % Normal 34.4-44.8 [facility] Comment on above: Performed By: #### G LUX ####Unless otherwise noted, all testing performed by [address] [phone]: [id number] Director: Melva Escamilla M.D. Hemoglobin (HGB) 11.1 g/dL Low 11.6-15.4 [facility] Comment on above: Performed By: #### G LUX ####Unless otherwise noted, all testing performed by [address] [phone]: [id number] Director: Melva Escamilla M.D. MCH 28.7 pg Normal 27.9-33.9 [facility] Comment on above: Performed By: #### G LUX ####Unless otherwise noted, all testing performed by [address] [phone]: [id number] Director: Melva Escamilla M.D. MCHC 32.0 g/dL Low 33.1-35.1 [facility] Comment on above: Performed By: #### G LUX ####Unless otherwise noted, all testing performed by [address] [phone]: [id number] Director: Melva Escamilla M.D. MCV 89.5 fL Normal 82.6-98.9 [facility] Comment on above: Performed By: #### G LUX ####Unless otherwise noted, all testing performed by [address] [phone]: [id number] Director: Melva Escamilla M.D. Platelet mean volume (PMV) 9 fL Invalid Interpretation Code 7.0 - 10.6 [facility] Platelets 225 K/mcL Invalid Interpretation Code 162 - 402 [facility] RDW-CA 14.6 % High 10.0-14.4 [facility] Comment on above: Performed By: #### G LUX ####Unless otherwise noted, all testing performed by [address] [phone]: [id number] Director: Melva Escamilla M.D. WBC (Leukocytes) 5.7 K/mcL Invalid Interpretation Code 3.4 - 10.6 [facility] CBC w/o Diffon 07-27-2017 Platelet mean volume Auto Entitic volume (Bld) 9.0 fL Normal 7.0-10.6 [facility] Comment on above: Performed By: #### G LUX ####Unless otherwise noted, all testing performed by [address] [phone]: [id number] Director: Melva Escamilla M.D. Platelets Auto #/vol (Bld) 225 K/mcL Normal 162-402 [facility] Comment on above: Performed By: #### G LUX ####Unless otherwise noted, all testing performed by [address] [phone]: [id number] Director: Melva Escamilla M.D. RBC Auto #/vol (Bld) 3.89 M/mcL Normal 3.7-5.0 [facility] Comment on above: Performed By: #### G LUX ####Unless otherwise noted, all testing performed by [address] [phone]: [id number] Director: Melva Escamilla M.D. WBC Auto #/vol (Bld) 5.7 K/mcL Normal 3.4-10.6 [facility] Comment on above: Performed By: #### G LUX ####Unless otherwise noted, all testing performed by [address] [phone]: [id number] Director: Melva Escamilla M.D. CBC with Diffon 07-27-2017 Basophils Auto #/vol (Bld) 0.0 K/mcL Normal 0-0.2 [facility] Comment on above: Performed By: #### G LUX ####Unless otherwise noted, all testing performed by [address] [phone]: [id number] Director: Melva Escamilla M.D. Basophils/100 WBC Auto (Bld) 0.8 % Normal [facility] Comment on above: Performed By: #### G LUX ####Unless otherwise noted, all testing performed by [address] [phone]: [id number] Director: Melva Escamilla M.D. Eosinophils Auto #/vol (Bld) 0.0 K/mcL Normal 0-0.5 [facility] Comment on above: Performed By: #### G LUX ####Unless otherwise noted, all testing performed by [address]CLIA: [id number] Director: Melva Escamilla M.D. Eosinophils/100 WBC Auto (Bld) 0.1 % Normal [facility] Comment on above: Performed By: #### G LUX ####Unless otherwise noted, all testing performed by [address] [phone]: [id number] Director: Melva Escamilla M.D. Erythrocyte distribution width Auto Ratio (RBC) 14.3 % Normal 10.0-14.4 [facility] Comment on above: Performed By: #### G LUX ####Unless otherwise noted, all testing performed by [address] [phone]: [id number] Director: Melva Escamilla M.D. Hematocrit Auto Volume Fraction (Bld) 38.7 % Normal 34.4-44.8 [facility] Comment on above: Performed By: #### G LUX ####Unless otherwise noted, all testing performed by [address] [phone]: [id number] Director: Melva Escamilla M.D. Hemoglobin mass conc (Bld) 12.5 g/dL Normal 11.6-15.4 [facility] Comment on above: Performed By: #### G LUX ####Unless otherwise noted, all testing performed by [address] [phone]: [id number] Director: Melva Escamilla M.D. Lymphocytes Auto #/vol (Bld) 0.3 K/mcL Low 1.0-3.7 [facility] Comment on above: Performed By: #### G LUX ####Unless otherwise noted, all testing performed by [address] [phone]: [id number] Director: Melva Escamilla M.D. Lymphocytes/100 WBC Auto (Bld) 6.8 % Normal [facility] Comment on above: Performed By: #### G LUX ####Unless otherwise noted, all testing performed by [address] [phone]: [id number] Director: Melva Escamilla M.D. MCH Auto Entitic mass (RBC) 28.9 pg Normal 27.9-33.9 [facility] Comment on above: Performed By: #### G LUX ####Unless otherwise noted, all testing performed by [address], [place] [phone]: [id number] Director: Melva Escamilla M.D. MCHC Auto mass conc (RBC) 32.2 g/dL Low 33.1-35.1 [facility] Comment on above: Performed By: #### G LUX ####Unless otherwise noted, all testing performed by [address] [phone]: [id number] Director: Melva Escamilla M.D. MCV Auto Entitic volume (RBC) 89.6 fL Normal 82.6-98.9 [facility] Comment on above: Performed By: #### G LUX ####Unless otherwise noted, all testing performed by [address] [phone]: [id number] Director: Melva Escamilla M.D. Monocytes Auto #/vol (Bld) 0.1 K/mcL Normal 0.1-0.6 [facility] Comment on above: Performed By: #### G LUX ####Unless otherwise noted, all testing performed by [address] [phone]: [id number] Director: Melva Escamilla M.D. Monocytes/100 WBC Auto (Bld) 1.4 % Normal [facility] Comment on above: Performed By: #### G LUX ####Unless otherwise noted, all testing performed by [address] [phone]: [id number] Director: Melva Escamilla M.D. Neutrophils Auto #/vol (Bld) 3.9 K/mcL Normal 1.2-6.9 [facility] Comment on above: Performed By: #### G LUX ####Unless otherwise noted, all testing performed by [address] [phone]: [id number] Director: Melva Escamilla M.D. Platelet mean volume Auto Entitic volume (Bld) 9.4 fL Normal 7.0-10.6 [facility] Comment on above: Performed By: #### G LUX ####Unless otherwise noted, all testing performed by [address] [phone]: [id number] Director: Melva Escamilla M.D. Platelets Auto #/vol (Bld) 263 K/mcL Normal 162-402 [facility] Comment on above: Performed By: #### G LUX ####Unless otherwise noted, all testing performed by [place] [phone]: [id number] Director: Melva Escamilla M.D. RBC Auto #/vol (Bld) 4.32 M/mcL Normal 3.7-5.0 [facility] Comment on above: Performed By: #### G LUX ####Unless otherwise noted, all testing performed by [address] [phone]: [id number] Director: Melva Escamilla M.D. Segmented Neut % 90.9 % Normal [place] Comment on above: Performed By: #### G LUX ####Unless otherwise noted, all testing performed by [place] [phone]: [id number] Director: Melva Escamilla M.D. WBC Auto #/vol (Bld) 4.3 K/mcL Normal 3.4-10.6 [facility] Comment on above: Performed By: #### G LUX ####Unless otherwise noted, all testing performed by [place] [phone]: [id number] Director: Melva Escamilla M.D. CHEMG (Basic Metabolic and M g)on 07-27-2017 Calcium mass conc 9.2 mg/dL Normal 8.4-10.2 [facility] Comment on above: Performed By: #### G LUX ####Unless otherwise noted, all testing performed by [place] [phone]: [id number] Director: Melva Escamilla M.D. Chloride molar conc 108 mmol/L Normal 98-108 [facility] Comment on above: Performed By: #### G LUX ####Unless otherwise noted, all testing performed by [address] [phone]: [id number] Director: Melva Escamilla M.D. CO2 molar conc 21 mmol/L Normal 21-32 [facility] Comment on above: Performed By: #### G LUX ####Unless otherwise noted, all testing performed by [address] [phone]: [id number] Director: Melva Escamilla M.D. Creatinine mass conc 0.89 mg/dL Normal 0.60-1.20 [facility] Comment on above: Performed By: #### G LUX ####Unless otherwise noted, all testing performed by [address] [phone]: [id number] Director: Melva Escamilla M.D. GFR/1.73 sq M predicted among blacks MDRD vol rate/area (S/P/Bld) mL/min/{1.73_m2} Normal [facility] Comment on above: Result Comment: Afri can Tongan GFR Calc Performed By: #### G LUX ####Unless otherwise noted, all testing performed by [address] [phone]: [id number] Director: Melva Escamilla M.D. GFR/1.73 sq M predicted among non-blacks MDRD vol rate/area (S/P/Bld) mL/min/{1.73_m2} [facility] Comment on above: Result Comment: Non- GFR CalceGFR is an estimated Glomerular Filtration Rate based on the valueof the patient's serum creatinine. In outpatients, eGFR should be usedas a helpful tool in screening for CKD. In inpatients or patients withacute renal failure, eGFR represents the GFR at the moment of the drawand should be used with caution. Performed By: #### G LUX ####Unless otherwise noted, all testing performed by [address] [phone]: [id number] Director: Melva Escamilla M.D. Glucose mass conc 375 mg/dL High 70-99 [facility] Comment on above: Result Comment: This test result might be falsely depressed or falsely elevated onsamples drawn from patients taking Sulfasalazine and Sulfapyridine.Venipuncture should occur prior to taking either of these drugs. Performed By: #### G LUX ####Unless otherwise noted, all testing performed by [address] [phone]: [id number] Director: Melva Escamilla M.D. Magnesium mass conc 2.0 mg/dL Normal 1.6-2.4 [facility] Comment on above: Performed By: #### G LUX ####Unless otherwise noted, all testing performed by [address] [phone]: [id number] Director: Melva Escamilla M.D. Potassium molar conc 4.4 mmol/L Normal 3.5-5.1 [facility] Comment on above: Performed By: #### G LUX ####Unless otherwise noted, all testing performed by [address] [phone]: [id number] Director: Melva Escamilla M.D. Sodium molar conc 139 mmol/L Normal 135-145 [facility] Comment on above: Performed By: #### G LUX ####Unless otherwise noted, all testing performed by [address] [phone]: [id number] Director: Melva Escamilla M.D. Urea nitrogen mass conc 18 mg/dL Normal 8-25 [facility] Comment on above: Performed By: #### G LUX ####Unless otherwise noted, all testing performed by [address] [phone]: [id number] Director: Melva Escamilla M.D. CHEST (ONE VIEW ONLY)on Protein mass conc Final ReportAccession No: [id number] Performed: Jul 27 2017 12:05AMExamination: CHEST (ONE VIEW ONLY)PROCEDURE: CHEST (ONE VIEW ONLY)REASON FOR STUDY/CLINICAL HISTORY: Chest Pain.COMPARISON STUDY: None available at time of dictation.Single frontal view(s) of the chest presented for interpretation.FINDINGS:T race haziness at the left costophrenic angle. Minimal atelectasis at theleftlateral base. Normal cardiomediastinal silhouette. No focal consolidation,edema, or effusion. No acute appearing focal significant bonyabnormality.Postsurgi barry changes are noted in the cervical spine. Electrical leadsoverliethe patient.IMPRESSION:Minima l left base atelectasis with a trace left pleural effusion notexcluded.No other acute localizing pulmonary pathology.Interpreting Physician: ZACH JOYCE D.O.Trans: sfalk : cc: Normal [facility] CT CHEST PE PROTOCOLon 07-27 Protein mass conc Final ReportAccession No: [id number] Performed: Jul 27 2017 1:45AMExamination: CT CHEST PE PROTOCOLCT CHEST POST CONTRAST, CTA PULMONARY ARTERIESCLINICAL HISTORY: MIDSTERNAL CHEST PAIN RADIATING UP INTO LT. NECK,ELEVATEDD-DIMER. SINCE 10PM. HX: CHF, HEART STENTCOMPARISON: None.TECHNIQUE: Following uneventful administration of 75 mL Isovue-370 IVintravenous contrast, helical imaging of the chest was performed using PEprotocol. Multiplanar reformatted images and MIP sequences arereconstructed.Addition al 3D post-processing was performed on a separate workstation.Dose reduction techniques were achieved by using: automated exposurecontroland/or adjustment of mA and /or kV according to patient size and/or use ofiterative reconstruction technique.FINDINGS:The contrast bolus is technically adequate. There is no acute or chronicpulmonary arterial embolism. Main pulmonary artery is mildly dilatedmeasuringup to 3.5 cm. Cardiac size is within normal limits. There is nopericardialeffusion. The thoracic aorta is intact with normal origins of the greatvessels. The imaged thyroid is unremarkable. The central airways arepatent.There is no adenopathy.Mild bilateral air trapping is present. No airway occlusion, bronchialwallthickening or airspace consolidation. There is no effusion, pneumothoraxorairspace disease. No suspicious pulmonary nodules are present. No acuteosseouslesions are seen.Imaging through the upper abdomen is unremarkable.IMPRESSION:1 . No acute or chronic pulmonary arterial embolism.2. Mild bilateral air trapping compatible with reactive airways disease.Noairway occlusion or bronchial wall thickening.3. Mild pulmonary arterial dilatation consistent with pulmonary arterialhypertension.Inte rpreting Physician: CARLITO MURO M.D.Trans: sfalk : cc: Normal [facility] Cardiac Troponin-Ion 018 Troponin I.cardiac mass conc No Biomarker evidence of myocardial injury within the past 14 hours. Normal [facility] Comment on above: Performed By: #### G LUX ####Unless otherwise noted, all testing performed by [address] [phone]: [id number] Director: Melva Escamilla M.D. Troponin I.cardiac mass conc ng/mL Normal < 45.0 [facility] Comment on above: Result Comment: Elev ation of troponin indicates some degree of myocardial necrosis butunless there is a significant rise and/or fall (if elevated) identified,it unlikely that an acute event has taken placeSamples from patients routinely receiving high dose biotin therapy(100-300 mg/day) may show falsely decreased results. Please correlateclinically. Performed By: #### G LUX ####Unless otherwise noted, all testing performed by [address] [phone]: [id number] Director: Melva Escamilla M.D. Troponin I.cardiac mass conc ng/mL Normal < 45.0 [facility] Comment on above: Result Comment: Elev ation of troponin indicates some degree of myocardial necrosis butunless there is a significant rise and/or fall (if elevated) identified,it unlikely that an acute event has taken placeSamples from patients routinely receiving high dose biotin therapy(100-300 mg/day) may show falsely decreased results. Please correlateclinically. Performed By: #### G LUX ####Unless otherwise noted, all testing performed by [address] [phone]: [id number] Director: Melva Escamilla M.D. Troponin I.cardiac mass conc No Biomarker evidence of myocardial injury within the past 14 hours. Normal [facility] Comment on above: Performed By: #### G LUX ####Unless otherwise noted, all testing performed by [address] [phone]: [id number] Director: Melva Escamilla M.D. D-Dimeron 07-27-2017 D-Dimer 0.63 mcg/ml (FEU) High < .5 [facility] Comment on above: Result Comment: This test is intended for use in conjunction with a clinical pretestprobability (PTP) assessment model to exclude pulmonary embolism (PE) anddeep vein thrombosis (DVT) in outpatients suspected of PE or DVT. Performed By: #### G LUX ####Unless otherwise noted, all testing performed by [address] [phone]: [id number] Director: Melva Escamilla M.D. D-Dimer, Quantitativeon D-Dimer 0.63 mcg/ml (FEU) High <0.5 [facility] Interpretation and review of laboratory results Abnormal Invalid Interpretation Code [facility] Cardiac Troponin-Ion Troponin I ng/mL Normal < 45 [facility] Comment on above: Result Comment: Elev ation of troponin indicates some degree of myocardial necrosis butunless there is a significant rise and/or fall (if elevated) identified,it unlikely that an acute event has taken placeSamples from patients routinely receiving high dose biotin therapy(100-300 mg/day) may show falsely decreased results. Please correlateclinically. Performed By: #### G LUX ####Unless otherwise noted, all testing performed by [address] [phone]: [id number] Director: Melva Escamilla M.D. Glucose, POCon 07-27-2017 Glucose mass conc 322 mg/dL High [address] Comment on above: Performed By: #### G LUX ####Unless otherwise noted, all testing performed by [address]8[address]CLIA: [id number] Director: Melva Escamilla M.D. Glucose mass conc 245 mg/dL High [address] [place] [address] Comment on above: Performed By: #### G LUX ####Unless otherwise noted, all testing performed by [address]8[address]CLIA: [id number] Director: Melva Escamilla M.D. Glucose mass conc 347 mg/dL [address] Comment on above: Performed By: #### G LUX ####Unless otherwise noted, all testing performed by [address]8[address]CLIA: [id number] Director: Melva Escamilla M.D. Glucose mass conc 310 mg/dL [address] Comment on above: Performed By: #### G LUX ####Unless otherwise noted, all testing performed by [place] [phone]: [id number] Director: Melva Escamilla M.D. Glucose mass conc 147 mg/dL High 80-115 [facility] Comment on above: Performed By: #### G LUX ####Unless otherwise noted, all testing performed by [address] [phone]: [id number] Director: Melva Escamilla M.D. Hepatic Function Panelon Albumin mass conc 3.1 g/dL Low 3.2-5.2 [facility] Comment on above: Performed By: #### G LUX ####Unless otherwise noted, all testing performed by [address] [phone]: [id number] Director: Melva Escamilla M.D. ALP enzyme act/vol 133 U/L Normal 40-150 [facility] Comment on above: Performed By: #### G LUX ####Unless otherwise noted, all testing performed by [address] [phone]: [id number] Director: Melva Escamilla M.D. ALT enzyme act/vol 28 U/L Normal 14-65 [facility] Comment on above: Result Comment: This test result might be falsely depressed or falsely elevated onsamples drawn from patients taking Sulfasalazine and Sulfapyridine.Venipuncture should occur prior to taking either of these drugs. Performed By: #### G LUX ####Unless otherwise noted, all testing performed by [address] [phone]: [id number] Director: Melva Escamilla M.D. AST enzyme act/vol 23 U/L Normal 0-45 [facility] Comment on above: Result Comment: This test result might be falsely depressed or falsely elevated onsamples drawn from patients taking Sulfasalazine and Sulfapyridine.Venipuncture should occur prior to taking either of these drugs. Performed By: #### G LUX ####Unless otherwise noted, all testing performed by [address] [phone]: [id number] Director: Melva Escamilla M.D. Bilirubin mass conc 0.2 mg/dL Low 0.3-1.2 [facility] Comment on above: Performed By: #### G LUX ####Unless otherwise noted, all testing performed by [address]8[address]CLIA: [id number] Director: Melva Escamilla M.D. Bilirubin.direct mass conc mg/dL Normal 0.0-0.4 [facility] Comment on above: Performed By: #### G LUX ####Unless otherwise noted, all testing performed by [address] [phone]: [id number] Director: Melva Escamilla M.D. Protein mass conc 6.3 g/dL Normal 6.0-8.0 [facility] Comment on above: Performed By: #### G LUX ####Unless otherwise noted, all testing performed by [address]8[address]CLIA: [id number] Director: Melva Escamilla M.D. PT/INRon 07-27-2017 Coagulation factor induced.INR assay in platelet poor plasma 0.96 {INR} Normal [facility] Comment on above: Result Comment: The [place] [employer] recommended therapeutic rangefor Warfarin (Coumadin) therapy goals:PROPHYLAXIS/TREATMENT of:INRVenous Thrombosis, Pulmonary Embolism2.0-3.0Prevention of VTE (Orthopedic Surgery)2.0-3.0Atrial Fibrillation2.0-3.0Myocardial Infarction2.0-3.0Mechanical Prosthetic Heart Valves (Aortic position)2.0-3.0Mechanical Prosthetic Heart Valves (Mitral Position)2.5-3.5American College of Chest Physicians evidence-based clinical practiceguidelines. CHEST. 2012 (9th ed) Performed By: #### G LUX ####Unless otherwise noted, all testing performed by [address] [phone]: [id number] Director: Melva Escamilla M.D. Coagulation tissue factor induced in platelet poor plasma 12.5 s Normal 11.8-14.3 [facility] Comment on above: Performed By: #### G LUX ####Unless otherwise noted, all testing performed by [address] [phone]: [id number] Director: Melva Escamilla M.D. Culture, Urineon 07-24-2017 Culture, Urine Test Name: Culture, Urine Culture Status: Final Culture Report: No Growth - Day 2 Micro Source: Urine - clean catch Normal [facility] Comment on above: Performed By: #### G LUX ####Unless otherwise noted, all testing performed by [address] [phone]: [id number] Director: eMlva Escamilla M.D. Urinalysison 07-24-2017 Bilirubin, Urine Negative Normal NEG;NEGATIV E [facility] Comment on above: Performed By: #### G LUX ####Unless otherwise noted, all testing performed by [address] [phone]: [id number] Director: Melva Escamilla M.D. Blood, Urine Negative Normal NEG;NEGATIV E [facility] Comment on above: Performed By: #### G LUX ####Unless otherwise noted, all testing performed by [address] [phone]: [id number] Director: Melva Escamilla M.D. Interpretation and review of laboratory results Abnormal Invalid Interpretation Code [facility] Nitrite, Urine Negative Normal NEG;NEGATIV E [facility] Comment on above: Performed By: #### G LUX ####Unless otherwise noted, all testing performed by [address] [phone]: [id number] Director: Melva Escamilla M.D. Protein, Urine Negative Normal NEG;NEGATIV E [facility] Comment on above: Performed By: #### G LUX ####Unless otherwise noted, all testing performed by [address] [phone]: [id number] Director: Melva Escamilla M.D. RBCs, Urine 1 /HPF Invalid Interpretation Code 0 - 5 [facility] Squamous Epithelial < 1 Normal 0-40 [facility] Comment on above: Performed By: #### G LUX ####Unless otherwise noted, all testing performed by [address] [phone]: [id number] Director: Melva Escamilla M.D. Urine, character Clear Invalid Interpretation Code [facility] Urine, color Yellow Normal [facility] Comment on above: Result Comment: The specimen was collected in a tube with the additives ethyl paraben,sodium propionate and chlorhexidine preservative. Detection ofurobilinogen and bilirubin maybe decreased due to their instability at RTor when exposed to light. Performed By: #### G LUX ####Unless otherwise noted, all testing performed by [address] [phone]: [id number] Director: Melva Escamilla M.D. Urine, glucose presence Negative Normal NEG;NEGATIV E [facility] Comment on above: Performed By: #### G LUX ####Unless otherwise noted, all testing performed by [address] [phone]: [id number] Director: Melva Escamilla M.D. Urine, ketones presence Negative Invalid Interpretation Code NEG;NEGATIV E mg/dL [facility] Urine, leukocyte esterase presence Negative Invalid Interpretation Code Negative [facility] Urine, pH 6.0 [pH] Normal 4.5-8.0 [facility] Comment on above: Performed By: #### G LUX ####Unless otherwise noted, all testing performed by [address] [phone]: [id number] Director: Melva Escamilla M.D. Urine, specific gravity 1.024 1 Invalid Interpretation Code 1.003 - 1.029 [facility] Urobilinogen, Urine 2.0 mg/dL High <2 [facility] Comment on above: Performed By: #### G LUX ####Unless otherwise noted, all testing performed by [address] [phone]: [id number] Director: Melva Escamilla M.D. WBCs, Urine < 1 Invalid Interpretation Code 0 - 5 /HPF [facility] Urinalysis, Routineon 2017 Character Clear Normal [facility] Comment on above: Performed By: #### G LUX ####Unless otherwise noted, all testing performed by [address] [phone]: [id number] Director: Melva Escamilla M.D. Ketone,Urine Negative Normal NEG;NEGATIV E [facility] Comment on above: Performed By: #### G LUX ####Unless otherwise noted, all testing performed by [address] [phone]: [id number] Director: Melva Escamilla M.D. Leuk.Esterase,Urine Negative Normal Negative [facility] Comment on above: Performed By: #### G LUX ####Unless otherwise noted, all testing performed by [address] [phone]: [id number] Director: Melva Escamilla M.D. RBC,Urine 1 /HPF Normal 0-5 [facility] Comment on above: Performed By: #### G LUX ####Unless otherwise noted, all testing performed by [place] [phone]: [id number] Director: Melva Escamilla M.D. Specific University,Urine 1.024 Normal 1.003-1.029 [facility] Comment on above: Performed By: #### G LUX ####Unless otherwise noted, all testing performed by [address], [place] [phone]: [id number] Director: Melva Escamilla M.D. WBC LM.HPF #/area (Urine sed) /[HPF] Normal 0-5 [facility] Comment on above: Performed By: #### G LUX ####Unless otherwise noted, all testing performed by [address] [phone]: [id number] Director: Melva Escamilla M.D. Hepatic Function Panelon Alanine aminotransferase (ALT) 41 U/L Normal 14-65 [facility] Comment on above: Result Comment: This test result might be falsely depressed or falsely elevated onsamples drawn from patients taking Sulfasalazine and Sulfapyridine.Venipuncture should occur prior to taking either of these drugs. Performed By: #### G LUX ####Unless otherwise noted, all testing performed by [address] [phone]: [id number] Director: Melva Escamilla M.D. Albumin 2.9 g/dL Low 3.2-5.2 [facility] Comment on above: Performed By: #### G LUX ####Unless otherwise noted, all testing performed by [address] [phone]: [id number] Director: Melva Escamilla M.D. Alkaline phosphatase (ALP) 121 U/L Normal 40-150 [facility] Comment on above: Performed By: #### G LUX ####Unless otherwise noted, all testing performed by [address] [phone]: [id number] Director: Melva Escamilla M.D. Aspartate aminotransferase (AST) 27 U/L Normal 0-45 [facility] Comment on above: Result Comment: This test result might be falsely depressed or falsely elevated onsamples drawn from patients taking Sulfasalazine and Sulfapyridine.Venipuncture should occur prior to taking either of these drugs. Performed By: #### G LUX ####Unless otherwise noted, all testing performed by [address] [phone]: [id number] Director: Melva Escamilla M.D. Bilirubin (total) mg/dL Invalid Interpretation Code 0 - 0.4 mg/dL [facility] Bilirubin mass conc 0.2 mg/dL Low 0.3-1.2 [facility] Comment on above: Performed By: #### G LUX ####Unless otherwise noted, all testing performed by [address] [phone]: [id number] Director: Melva Escamilla M.D. Bilirubin.direct mass conc mg/dL Normal 0.0-0.4 [facility] Comment on above: Performed By: #### G LUX ####Unless otherwise noted, all testing performed by [address] [phone]: [id number] Director: Melva Escamilla M.D. Interpretation and review of laboratory results Abnormal Invalid Interpretation Code [facility] Protein 5.9 g/dL Low 6.0-8.0 [facility] Comment on above: Performed By: #### G LUX ####Unless otherwise noted, all testing performed by [address] [phone]: [id number] Director: Melva Escamilla M.D. Urine, bilirubin presence 0.2 mg/dL Low 0.3 - 1.2 mg/dL [facility] Glucose, POCon 07-10-2017 Glucose mass conc 382 mg/dL High [address] [place] [address] Comment on above: Performed By: #### G LUX ####Unless otherwise noted, all testing performed by [address]8[address]CLIA: [id number] Director: Melva Escamilla M.D. Glucose mass conc 120 mg/dL High [address] [place] [address] Comment on above: Performed By: #### G LUX ####Unless otherwise noted, all testing performed by [address]: [id number] Director: Melva Escamilla M.D. Glucose, POCon 07-09-2017 Glucose mass conc 95 mg/dL Normal [address] [place] [address] Comment on above: Performed By: #### G LUX ####Unless otherwise noted, all testing performed by [address]: [id number] Director: Melva Escamilla M.D. Glucose mass conc 218 mg/dL High [address] Comment on above: Performed By: #### G LUX ####Unless otherwise noted, all testing performed by [address]8509CLIA: [id number] Director: Melva Escamilla M.D. Glucose mass conc 227 mg/dL High [address] Comment on above: Performed By: #### L IPID, TSH ####Unless otherwise noted, all testing performed by [address] [phone]: [id number] Director: Melva Escamilla M.D. Glucose mass conc 139 mg/dL High [address] [place] [address] Comment on above: Performed By: #### L IPID, TSH ####Unless otherwise noted, all testing performed by [address] [phone]: [id number] Director: Melva Escamilla M.D. Glucose, POCon 07-08-2017 Glucose mass conc 122 mg/dL High [address] [place] [address] Comment on above: Performed By: #### L IPID, TSH ####Unless otherwise noted, all testing performed by [place] [phone]: [id number] Director: Melva Escamilla M.D. Glucose mass conc 212 mg/dL High [address] [place] [address] Comment on above: Performed By: #### L IPID, TSH ####Unless otherwise noted, all testing performed by [address] [phone]: [id number] Director: Melva Escamilla M.D. Glucose mass conc 278 mg/dL [address] Comment on above: Performed By: #### L IPID, TSH ####Unless otherwise noted, all testing performed by [address] [phone]: [id number] Director: Melva Escamilla M.D. Glucose mass conc 186 mg/dL High 80-115 [facility] Comment on above: Performed By: #### L IPID, TSH ####Unless otherwise noted, all testing performed by [address]8509CLIA: [id number] Director: Melva Escamilla M.D. Glucose, POCon 07-07-2017 Glucose mass conc 223 mg/dL High 80-115 [facility] Comment on above: Performed By: #### L IPID, TSH ####Unless otherwise noted, all testing performed by [place] [address]CLIA: [id number] Director: Melva Escamilla M.D. Glucose mass conc 141 mg/dL High [address] [place] [address] Comment on above: Performed By: #### L IPID, TSH ####Unless otherwise noted, all testing performed by [place] [address]CLIA: [id number] Director: Melva Escamilla M.D. Glucose mass conc 358 mg/dL High 80[address] [place] [address] Comment on above: Performed By: #### L IPID, TSH ####Unless otherwise noted, all testing performed by [address]8509CLIA: [id number] Director: Melva Escamilla M.D. Glucose mass conc 112 mg/dL Normal [address] [place] [address] Comment on above: Performed By: #### L IPID, TSH ####Unless otherwise noted, all testing performed by [address], [place] [phone]: [id number] Director: Melva Escamilla M.D. Glucose, POCon 07-06-2017 Glucose mass conc 228 mg/dL High 80[address] [place] [address] Comment on above: Performed By: #### L IPID, TSH ####Unless otherwise noted, all testing performed by [address]8509CLIA: [id number] Director: Melva Escamilla M.D. Glucose mass conc 126 mg/dL High [address] Comment on above: Performed By: #### L IPID, TSH ####Unless otherwise noted, all testing performed by [address]8509CLIA: [id number] Director: Melva Escamilla M.D. Glucose mass conc 358 mg/dL High [address] Comment on above: Performed By: #### L IPID, TSH ####Unless otherwise noted, all testing performed by [address]8509CLIA: [id number] Director: Melva Escamilla M.D. Glucose mass conc 120 mg/dL High [address] Comment on above: Performed By: #### L IPID, TSH ####Unless otherwise noted, all testing performed by [address]8509CLIA: [id number] Director: Melva Escamilla M.D. Renal Function Panelon 07-06 Albumin mass conc 2.9 g/dL Low 3.2-5.2 [facility] Comment on above: Performed By: #### L IPID, TSH ####Unless otherwise noted, all testing performed by [place] [phone]: [id number] Director: Melva Escamilla M.D. Calcium mass conc 9.3 mg/dL Normal 8.4-10.2 [facility] Comment on above: Performed By: #### L IPID, TSH ####Unless otherwise noted, all testing performed by [place] [id number]: [id number] Director: Melva Escamilla M.D. Chloride molar conc 106 mmol/L Normal 98-108 [facility] Comment on above: Performed By: #### L IPID, TSH ####Unless otherwise noted, all testing performed by [place] [id number]: [id number] Director: Melva Escamilla M.D. CO2 molar conc 22 mmol/L Normal 21-32 [facility] Comment on above: Performed By: #### L IPID, TSH ####Unless otherwise noted, all testing performed by [place] [phone]: [id number] Director: Melva Escamilla M.D. Creatinine mass conc 0.92 mg/dL Normal 0.60-1.20 [facility] Comment on above: Performed By: #### L IPID, TSH ####Unless otherwise noted, all testing performed by [place] [id number]: [id number] Director: Melva Escamilla M.D. GFR/1.73 sq M predicted among blacks MDRD vol rate/area (S/P/Bld) mL/min/{1.73_m2} Normal [facility] Comment on above: Result Comment: Afri can Tongan GFR Calc Performed By: #### L IPID, TSH ####Unless otherwise noted, all testing performed by [address] [phone]: [id number] Director: Melva Escamilla M.D. GFR/1.73 sq M predicted among non-blacks MDRD vol rate/area (S/P/Bld) mL/min/{1.73_m2} Normal [facility] Comment on above: Result Comment: Non- GFR CalceGFR is an estimated Glomerular Filtration Rate based on the valueof the patient's serum creatinine. In outpatients, eGFR should be usedas a helpful tool in screening for CKD. In inpatients or patients withacute renal failure, eGFR represents the GFR at the moment of the drawand should be used with caution. Performed By: #### L IPID, TSH ####Unless otherwise noted, all testing performed by [address] [phone]: [id number] Director: Melva Escamilla M.D. Glucose mass conc 279 mg/dL High 70-99 [facility] Comment on above: Result Comment: This test result might be falsely depressed or falsely elevated onsamples drawn from patients taking Sulfasalazine and Sulfapyridine.Venipuncture should occur prior to taking either of these drugs. Performed By: #### L IPID, TSH ####Unless otherwise noted, all testing performed by [address] [phone]: [id number] Director: Melva Escamilla M.D. Phosphate mass conc 1.9 mg/dL Low 2.8-4.1 [facility] Comment on above: Performed By: #### L IPID, TSH ####Unless otherwise noted, all testing performed by [place] [phone]: [id number] Director: Melva Escamilla M.D. Potassium molar conc 3.7 mmol/L Normal 3.5-5.1 [facility] Comment on above: Performed By: #### L IPID, TSH ####Unless otherwise noted, all testing performed by [place] [address]CLIA: [id number] Director: Melva Escamilla M.D. Sodium molar conc 136 mmol/L Normal 135-145 [facility] Comment on above: Performed By: #### L IPID, TSH ####Unless otherwise noted, all testing performed by [place] [address]CLIA: [id number] Director: Melva Escamilla M.D. Urea nitrogen mass conc 18 mg/dL Normal 8-25 [facility] Comment on above: Performed By: #### L IPID, TSH ####Unless otherwise noted, all testing performed by [place] [address]CLIA: [id number] Director: Melva Escamilla M.D. Glucose, POCon 07-05-2017 Glucose mass conc 175 mg/dL High 80-115 [facility] Comment on above: Performed By: #### L IPID, TSH ####Unless otherwise noted, all testing performed by [address] [phone]: [id number] Director: Melva Escamilla M.D. Glucose mass conc 191 mg/dL High [address] [place] [address] Comment on above: Performed By: #### L IPID, TSH ####Unless otherwise noted, all testing performed by [place] [id number]: [id number] Director: Melva Escamilla M.D. Glucose mass conc 264 mg/dL High [address] [place] [address] Comment on above: Performed By: #### L IPID, TSH ####Unless otherwise noted, all testing performed by [address]8[address]CLIA: [id number] Director: Melva Escamilla M.D. Glucose mass conc 163 mg/dL [address] Comment on above: Performed By: #### L IPID, TSH ####Unless otherwise noted, all testing performed by [address]8[address]CLIA: [id number] Director: Melva Escamilla M.D. Glucose, POCon 07-04-2017 Glucose mass conc 141 mg/dL High [address] [place] [address] Comment on above: Performed By: #### L IPID, TSH ####Unless otherwise noted, all testing performed by [place] [id number]: [id number] Director: Melva Escamilla M.D. Glucose mass conc 331 mg/dL High 80-115 [facility] Comment on above: Performed By: #### G LUX ####Unless otherwise noted, all testing performed by [address] [phone]: [id number] Director: Melva Escamilla M.D. Glucose mass conc 117 mg/dL High 80-115 [facility] Comment on above: Performed By: #### G LUX ####Unless otherwise noted, all testing performed by [address] [phone]: [id number] Director: Melva Escamilla M.D. T4, Freeon 07-04-2017 T4 free mass conc 1.3 ng/dL Normal 0.76-1.79 [facility] Comment on above: Result Comment: Samp les from patients routinely receiving high dose biotin therapy(100-300 mg/day) may show falsely decreased results. Please correlateclinically. Performed By: #### T 4TTL, FT4 ####Unless otherwise noted, all testing performed by [address] [phone]: [id number] Director: Melva Escamilla M.D. T4, Totalon 07-04-2017 T4, Total 12.1 mcg/dL Normal 4.8-13.9 [facility] Comment on above: Result Comment: This test result might be falsely depressed or falsely elevated onsamples drawn from patients taking Sulfasalazine and Sulfapyridine.Venipuncture should occur prior to taking either of these drugs. Performed By: #### T 4TTL, FT4 ####Unless otherwise noted, all testing performed by [address] [phone]: [id number] Director: Melva Escamilla M.D. Glucose, POCon 07-03-2017 Glucose mass conc 228 mg/dL High [address] Comment on above: Performed By: #### G LUX ####Unless otherwise noted, all testing performed by [place] [address]CLIA: [id number] Director: Melva Escamilla M.D. Glucose mass conc 169 mg/dL High [address] Comment on above: Performed By: #### G LUX ####Unless otherwise noted, all testing performed by [address]: [id number] Director: Melva Escamilla M.D. Glucose mass conc 199 mg/dL High [address] Comment on above: Performed By: #### G LUX ####Unless otherwise noted, all testing performed by [place] [address]CLIA: [id number] Director: Melva Escamilla M.D. Glucose mass conc 128 mg/dL High [address] Comment on above: Performed By: #### G LUX ####Unless otherwise noted, all testing performed by [place] [address]CLIA: [id number] Director: Melva Escamilla M.D. Lipid Panelon 07-03-2017 Cholesterol in HDL mass conc 69 mg/dL High 40-59 [facility] Comment on above: Performed By: #### L IPID, TSH ####Unless otherwise noted, all testing performed by [address] [phone]: [id number] Director: Melva Escamilla M.D. Cholesterol in LDL mass conc 3 mg/dL Low 10-150 [facility] Comment on above: Performed By: #### L IPID, TSH ####Unless otherwise noted, all testing performed by [address] [phone]: [id number] Director: Melva Escamilla M.D. Cholesterol in VLDL mass conc 15 mg/dL Normal 5-40 [facility] Comment on above: Performed By: #### L IPID, TSH ####Unless otherwise noted, all testing performed by [address] [phone]: [id number] Director: Melva Escamilla M.D. Cholesterol mass conc 88 mg/dL Low 100-[address] [facility] Comment on above: Performed By: #### L IPID, TSH ####Unless otherwise noted, all testing performed by [address] [phone]: [id number] Director: Melva Escamilla M.D. Cholesterol.total/Cho lesterol in HDL mass ratio 1.3 {ratio} Low 3.2-5.0 [facility] Comment on above: Result Comment: [place] le Coronary Heart Disease Risk Factor (CHDRF):Average risk= 4.41/2 Average risk= 3.32 times Average risk= 7.1 Performed By: #### L IPID, TSH ####Unless otherwise noted, all testing performed by [address] [place] [phone]: [id number] Director: Melva Escamilla M.D. Triglyceride mass conc 76 mg/dL Normal 25-120 [facility] Comment on above: Performed By: #### L IPID, TSH ####Unless otherwise noted, all testing performed by [address] [phone]: [id number] Director: Melva Escamilla M.D. TSHon 07-03-2017 T4 free mass conc 1.3 ng/dL Normal 0.7-1.7 [facility] Comment on above: Result Comment: Samp les from patients routinely receiving high dose biotin therapy(100-300 mg/day) may show falsely decreased results. Please correlateclinically. Performed By: #### L IPID, TSH ####Unless otherwise noted, all testing performed by [address] [phone]: [id number] Director: Melva Escamilla M.D. Thyrotropin Qn 0.22 uIU/mL Low 0.320-5.000 [place] Comment on above: Result Comment: Samp les from patients routinely receiving high dose biotin therapy(100-300 mg/day) may show falsely decreased results. Please correlateclinically. Performed By: #### L IPID, TSH ####Unless otherwise noted, all testing performed by [address] [phone]: [id number] Director: Melva Escamilla M.D. COVID-19 virus antigen assay SARS-CoV-2 (COVID-19) Ag IA.rapid Ql (Resp) [facility] Work Phone: Culture, urine Bacteria identified Cx Nom (U) Negative [facility] Work Phone: Bacteria identified Cx Nom (U) GPC Poss Enterococcus sp [facility] Work Phone: [phone] Bacteria identified Cx Nom (U) Klebsiella pneumoniae sp pneum [facility] Work Phone: [phone] Laboratory - Microbiology an d Antimicrobial susceptibility Bacteria identified Cx Nom (Bld) No growth in 5 days. [facility] Work Phone: Vital Signs Date Time Vital Sign Value Performing Clinician Facility 10-25-2024 09:32-0400 Body height 157.5 cm Chloe Mackenzie MD Work Phone: [facility] 10-25-2024 09:32-0400 Body mass index (BMI) [Ratio] 28.35 kg/m2 Chloe Mackenzie MD Work Phone: [facility] 10-25-2024 09:32-0400 Body weight 70.31 kg Chloe Mackenzie MD Work Phone: [facility] 09-21-2024 07:14-0400 Body mass index (BMI) [Ratio] 27.69 kg/m2 Rosa Cioce AMMONIUM NITRATE 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 Phone: [facility] 09-21-2024 07:14-0400 Body temperature 96.91 [degF] Rosa Cioce AMMONIUM NITRATE 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 Phone: [facility] 09-21-2024 07:14-0400 Body weight 68.67 kg Rosa Cioce AMMONIUM NITRATE 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 Phone: [facility] 09-21-2024 07:14-0400 Diastolic blood pressure 76 mm[Hg] Rosa Cioce AMMONIUM NITRATE 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 Phone: [facility] 09-21-2024 07:14-0400 Heart rate 87 /min Rosa Cioce AMMONIUM NITRATE 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 Phone: [facility] 09-21-2024 07:14-0400 Respiratory rate 12 /min Rosa Cioce AMMONIUM NITRATE 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 Phone: [facility] 09-21-2024 07:14-0400 SaO2% (BldA) [Mass fraction] 97 % Rosa Cioce AMMONIUM NITRATE 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 Phone: [facility] 09-21-2024 07:14-0400 Systolic blood pressure 128 mm[Hg] Rosa Cioce AMMONIUM NITRATE 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 Phone: [facility] 09-01-2024 14:50-0400 Diastolic blood pressure 64 mm[Hg] Heather Davis MD Work Phone: [facility] 09-01-2024 14:50-0400 Heart rate 73 /min Heather Davis MD Work Phone: [facility] 09-01-2024 14:50-0400 Respiratory rate 20 /min Heather Davis MD Work Phone: [facility] 09-01-2024 14:50-0400 SaO2% (BldA) [Mass fraction] 97 % Heather Davis MD Work Phone: [facility] 09-01-2024 14:50-0400 Systolic blood pressure 136 mm[Hg] Heather Davis MD Work Phone: [facility] 09-01-2024 13:50-0400 Body mass index (BMI) [Ratio] 27.8 kg/m2 Heather Davis MD Work Phone: [facility] 09-01-2024 13:50-0400 Body temperature 97.2 [degF] Heather Davis MD Work Phone: [facility] 09-01-2024 13:50-0400 Body weight 68.95 kg Heather Davis MD Work Phone: [facility] 08-24-2024 10:41-0400 Body mass index (BMI) [Ratio] 30.12 kg/m2 Bill Woods PA-C Work Phone: [facility] 08-24-2024 10:41-0400 Body weight 74.7 kg Bill Woods PA-C Work Phone: [facility] 08-24-2024 10:41-0400 Diastolic blood pressure 64 mm[Hg] Bill Young PA-C Work Phone: [facility] 08-24-2024 10:41-0400 Heart rate 61 /min Bill Young PA-C Work Phone: [facility] 08-24-2024 10:41-0400 Systolic blood pressure 146 mm[Hg] Bill Young PA-C Work Phone: [facility] 08-05-2024 12:03-0400 Diastolic blood pressure 56 mm[Hg] Meka Webb MD Work Phone: [facility] Comment on above: manual 08-05-2024 12:03-0400 Heart rate 80 /min Meka Webb MD Work Phone: [facility] 08-05-2024 12:03-0400 Systolic blood pressure 110 mm[Hg] Meka Webb MD Work Phone: [facility] Comment on above: manual 08-05-2024 12:02-0400 Body height 157.5 cm Meka Webb MD Work Phone: [facility] 08-05-2024 12:02-0400 Body mass index (BMI) [Ratio] 28.72 kg/m2 Meka Webb MD Work Phone: [facility] 08-05-2024 12:02-0400 Body weight 71.22 kg Meka Webb MD Work Phone: [facility] 08-05-2024 12:02-0400 SaO2% (BldA) [Mass fraction] 98 % Meka Webb MD Work Phone: [facility] 08-04-2024 10:19-0400 Body height 157.5 cm Chloe Mackenzie MD Work Phone: [facility] 08-04-2024 10:19-0400 Body mass index (BMI) [Ratio] 28.72 kg/m2 Chloe Mackenzie MD Work Phone: [facility] 08-04-2024 10:19-0400 Body weight 71.22 kg Chloe Mackenzie MD Work Phone: [facility] 04-08-2024 12:24-0500 Body height 157.5 cm Heather Davis MD Work Phone: [facility] 04-08-2024 12:24-0500 Body mass index (BMI) [Ratio] 28.35 kg/m2 Heather Davis MD Work Phone: [facility] 04-08-2024 12:24-0500 Body temperature 96.4 [degF] Heather Davis MD Work Phone: [facility] 04-08-2024 12:24-0500 Body weight 70.31 kg Heather Davis MD Work Phone: [facility] 04-08-2024 12:24-0500 Diastolic blood pressure 70 mm[Hg] Heather Davis MD Work Phone: [facility] 04-08-2024 12:24-0500 Heart rate 80 /min Heather Davis MD Work Phone: [facility] 04-08-2024 12:24-0500 Respiratory rate 16 /min Heather Davis MD Work Phone: [facility] 04-08-2024 12:24-0500 SaO2% (BldA) [Mass fraction] 97 % Heather Davis MD Work Phone: [facility] 04-08-2024 12:24-0500 Systolic blood pressure 126 mm[Hg] Heather Davis MD Work Phone: [facility] 03-29-2024 09:19-0500 Body height 157.5 cm Meka Webb MD Work Phone: [facility] 03-29-2024 09:19-0500 Body mass index (BMI) [Ratio] 31.28 kg/m2 Meka Webb MD Work Phone: [facility] 03-29-2024 09:19-0500 Body weight 77.56 kg Meka Webb MD Work Phone: [facility] 03-29-2024 09:19-0500 Diastolic blood pressure 56 mm[Hg] Meka Webb MD Work Phone: [facility] 03-29-2024 09:19-0500 Heart rate 58 /min Meka Webb MD Work Phone: [facility] 03-29-2024 09:19-0500 Respiratory rate 20 /min Meka Webb MD Work Phone: [facility] 03-29-2024 09:19-0500 SaO2% (BldA) [Mass fraction] 97 % Meka Webb MD Work Phone: [facility] 03-29-2024 09:19-0500 Systolic blood pressure 100 mm[Hg] Meka Webb MD Work Phone: [facility] 03-08-2024 09:24-0500 Body height 157.5 cm Chloe Mackenzie MD Work Phone: [facility] 03-08-2024 09:24-0500 Body mass index (BMI) [Ratio] 31.28 kg/m2 Chloe Mackenzie MD Work Phone: [facility] 03-08-2024 09:24-0500 Body weight 77.56 kg Chloe Mackenzie MD Work Phone: [facility] 03-08-2024 09:24-0500 Diastolic blood pressure 59 mm[Hg] Chloe Mackenzie MD Work Phone: [facility] 03-08-2024 09:24-0500 Heart rate 70 /min Chloe Mackenzie MD Work Phone: [facility] 03-08-2024 09:24-0500 SaO2% (BldA) [Mass fraction] 97 % Chloe Mackenzie MD Work Phone: [facility] 03-08-2024 09:24-0500 Systolic blood pressure 125 mm[Hg] Chloe Mackenzie MD Work Phone: [facility] 02-24-2024 09:17-0400 Body height 157.5 cm Rosa Cioce AMMONIUM NITRATE 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 Phone: [facility] 02-24-2024 09:17-0400 Body mass index (BMI) [Ratio] 31.35 kg/m2 Rosa Cioce AMMONIUM NITRATE 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 Phone: [facility] 02-24-2024 09:17-0400 Body temperature 97.59 [degF] Rosa Cioce AMMONIUM NITRATE 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 Phone: [facility] 02-24-2024 09:17-0400 Body weight 77.75 kg Rosa Cioce AMMONIUM NITRATE 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 Phone: [facility] 02-24-2024 09:17-0400 Diastolic blood pressure 72 mm[Hg] Rosa Cioce AMMONIUM NITRATE 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 Phone: [facility] 02-24-2024 09:17-0400 Heart rate 67 /min Rosa Cioce AMMONIUM NITRATE 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 Phone: [facility] 02-24-2024 09:17-0400 SaO2% (BldA) [Mass fraction] 99 % Rosa Cioce AMMONIUM NITRATE 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 Phone: [facility] 02-24-2024 09:17-0400 Systolic blood pressure 126 mm[Hg] Rosa Cioce AMMONIUM NITRATE 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 Phone: [facility] 02-18-2024 13:32-0400 Body height 157.5 cm Chloe Mackenzie MD Work Phone: [facility] 02-18-2024 13:32-0400 Body mass index (BMI) [Ratio] 30.36 kg/m2 Chloe Mackenzie MD Work Phone: [facility] 02-18-2024 13:32-0400 Body weight 75.3 kg Chloe Mackenzie MD Work Phone: [facility] 02-11-2024 11:08-0400 Body height 157.5 cm Chloe Mackenzie MD Work Phone: [facility] 02-11-2024 11:08-0400 Body mass index (BMI) [Ratio] 30.36 kg/m2 Chloe Mackenzie MD Work Phone: [facility] 02-11-2024 11:08-0400 Body weight 75.3 kg Chloe Mackenzie MD Work Phone: [facility] 02-11-2024 11:08-0400 Heart rate 80 /min Chloe Mackenzie MD Work Phone: [facility] 02-11-2024 11:08-0400 SaO2% (BldA) [Mass fraction] 96 % Chloe Mackenzie MD Work Phone: [facility] 01-05-2024 08:09-0400 Diastolic blood pressure 46 mm[Hg] Pacc 2 Work Phone: [facility] 01-05-2024 08:09-0400 Systolic blood pressure 108 mm[Hg] Pacc 2 Work Phone: [facility] 01-05-2024 08:08-0400 Body height 157.5 cm Pacc 2 Work Phone: [facility] 01-05-2024 08:08-0400 Body mass index (BMI) [Ratio] 29.81 kg/m2 Pacc 2 Work Phone: [facility] 01-05-2024 08:08-0400 Body weight 73.94 kg Pacc 2 Work Phone: [facility] 01-05-2024 08:08-0400 Heart rate 57 /min Pacc 2 Work Phone: [facility] 01-05-2024 08:08-0400 Respiratory rate 18 /min Pacc 2 Work Phone: [facility] 01-05-2024 08:08-0400 SaO2% (BldA) [Mass fraction] 98 % Pacc 2 Work Phone: [facility] 12-29-2023 09:22-0400 Body height 157.5 cm Meka Webb MD Work Phone: [facility] 12-29-2023 09:22-0400 Body mass index (BMI) [Ratio] 28.9 kg/m2 Meka Webb MD Work Phone: [facility] 12-29-2023 09:22-0400 Body weight 71.67 kg Meka Webb MD Work Phone: [facility] 12-29-2023 09:22-0400 Diastolic blood pressure 61 mm[Hg] Meka Webb MD Work Phone: [facility] 12-29-2023 09:22-0400 Heart rate 56 /min Meka Webb MD Work Phone: [facility] 12-29-2023 09:22-0400 Respiratory rate 20 /min Meka Webb MD Work Phone: [facility] 12-29-2023 09:22-0400 SaO2% (BldA) [Mass fraction] 98 % Meka Webb MD Work Phone: [facility] 12-29-2023 09:22-0400 Systolic blood pressure 128 mm[Hg] Meka Webb MD Work Phone: [facility] 12-17-2023 09:32-0400 Body height 157.5 cm Chloe Mackenzie MD Work Phone: [facility] 12-17-2023 09:32-0400 Body mass index (BMI) [Ratio] 28.9 kg/m2 Chloe Mackenzie MD Work Phone: [facility] 12-17-2023 09:32-0400 Body weight 71.67 kg Chloe Mackenzie MD Work Phone: [facility] 12-17-2023 09:32-0400 Diastolic blood pressure 62 mm[Hg] Chloe Mackenzie MD Work Phone: [facility] 12-17-2023 09:32-0400 Heart rate 92 /min Chloe Mackenzie MD Work Phone: [facility] 12-17-2023 09:32-0400 SaO2% (BldA) [Mass fraction] 96 % Chloe Mackenzie MD Work Phone: [facility] 12-17-2023 09:32-0400 Systolic blood pressure 117 mm[Hg] Chloe Mackenzie MD Work Phone: [facility] 12-08-2023 11:05-0400 Body height 157.5 cm Heather Davis MD Work Phone: [facility] 12-08-2023 11:05-0400 Body mass index (BMI) [Ratio] 29.26 kg/m2 Heather Davis MD Work Phone: [facility] 12-08-2023 11:05-0400 Body temperature 96.49 [degF] Heather Davis MD Work Phone: [facility] 12-08-2023 11:05-0400 Body weight 72.58 kg Heather Davis MD Work Phone: [facility] 12-08-2023 11:05-0400 Diastolic blood pressure 69 mm[Hg] Heather Davis MD Work Phone: [facility] 12-08-2023 11:05-0400 Heart rate 59 /min Heather Davis MD Work Phone: [facility] 12-08-2023 11:05-0400 SaO2% (BldA) [Mass fraction] 98 % Heather Davis MD Work Phone: [facility] 12-08-2023 11:05-0400 Systolic blood pressure 112 mm[Hg] Heather Davis MD Work Phone: [facility] 11-27-2023 14:53-0400 Body height 157.5 cm Jarred Duarte MD Work Phone: [facility] 11-27-2023 14:53-0400 Body mass index (BMI) [Ratio] 29.26 kg/m2 Jarred Duarte MD Work Phone: [facility] 11-27-2023 14:53-0400 Body weight 72.58 kg Jarred Duarte MD Work Phone: [facility] 11-10-2023 06:48-0400 Body height 157.5 cm Bill Young PA-C Work Phone: [facility] 11-10-2023 06:48-0400 Body mass index (BMI) [Ratio] 29.08 kg/m2 Bill Young PA-C Work Phone: [facility] 11-10-2023 06:48-0400 Body weight 72.12 kg Bill Young PA-C Work Phone: [facility] 11-10-2023 06:48-0400 Diastolic blood pressure 63 mm[Hg] Bill Young PA-C Work Phone: [facility] 11-10-2023 06:48-0400 Heart rate 58 /min Bill Young PA-C Work Phone: [facility] 11-10-2023 06:48-0400 Systolic blood pressure 103 mm[Hg] Bill Young PA-C Work Phone: [facility] 09-24-2023 07:57-0400 Body height 158.5 cm Bill Young PA-C Work Phone: [facility] 09-24-2023 07:57-0400 Body mass index (BMI) [Ratio] 28.17 kg/m2 Bill Young PA-C Work Phone: [facility] 09-24-2023 07:57-0400 Body weight 70.76 kg Bill Young PA-C Work Phone: [facility] 09-24-2023 07:57-0400 Diastolic blood pressure 78 mm[Hg] Bill Woods PA-C Work Phone: [facility] 09-24-2023 07:57-0400 Heart rate 74 /min Bill Woods PA-C Work Phone: [facility] 09-24-2023 07:57-0400 Systolic blood pressure 143 mm[Hg] Bill Woods PA-C Work Phone: [facility] 09-15-2023 11:12-0400 Body height 160 cm Heather Davis MD Work Phone: [facility] 09-15-2023 11:12-0400 Body mass index (BMI) [Ratio] 27.63 kg/m2 Heather Davis MD Work Phone: [facility] 09-15-2023 11:12-0400 Body temperature 97.11 [degF] Heather Davis MD Work Phone: [facility] 09-15-2023 11:12-0400 Body weight 70.76 kg Heather Davis MD Work Phone: [facility] 09-15-2023 11:12-0400 Diastolic blood pressure 62 mm[Hg] Heather Davis MD Work Phone: [facility] 09-15-2023 11:12-0400 Heart rate 62 /min Heather Davis MD Work Phone: [facility] 09-15-2023 11:12-0400 Respiratory rate 16 /min Heather Davis MD Work Phone: [facility] 09-15-2023 11:12-0400 SaO2% (BldA) [Mass fraction] 97 % Heather Davis MD Work Phone: [facility] 09-15-2023 11:12-0400 Systolic blood pressure 115 mm[Hg] Heather Davis MD Work Phone: [facility] 09-15-2023 08:36-0400 Body height 160 cm Meka Webb MD Work Phone: [facility] 09-15-2023 08:36-0400 Body mass index (BMI) [Ratio] 27.63 kg/m2 Meka Webb MD Work Phone: [facility] 09-15-2023 08:36-0400 Body weight 70.76 kg Meka Webb MD Work Phone: [facility] 09-15-2023 08:36-0400 Diastolic blood pressure 60 mm[Hg] Meka Webb MD Work Phone: [facility] 09-15-2023 08:36-0400 Heart rate 69 /min Meka Webb MD Work Phone: [facility] 09-15-2023 08:36-0400 Respiratory rate 20 /min Meka Webb MD Work Phone: [facility] 09-15-2023 08:36-0400 SaO2% (BldA) [Mass fraction] 98 % Meka Webb MD Work Phone: [facility] 09-15-2023 08:36-0400 Systolic blood pressure 123 mm[Hg] Meka Webb MD Work Phone: [facility] 08-19-2023 09:16-0400 Body height 160 cm Rosa Cioce AMMONIUM NITRATE 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 Phone: [facility] 08-19-2023 09:16-0400 Body mass index (BMI) [Ratio] 27.63 kg/m2 Rosa Cioce AMMONIUM NITRATE 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 Phone: [facility] 08-19-2023 09:16-0400 Body temperature 98.1 [degF] Rosa Cioce AMMONIUM NITRATE 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 Phone: [facility] 08-19-2023 09:16-0400 Body weight 70.76 kg Rosa Cioce AMMONIUM NITRATE 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 Phone: [facility] 08-19-2023 09:16-0400 Diastolic blood pressure 66 mm[Hg] Rosa Cioce AMMONIUM NITRATE 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 Phone: [facility] 08-19-2023 09:16-0400 Heart rate 65 /min Rosa Cioce AMMONIUM NITRATE 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 Phone: [facility] 08-19-2023 09:16-0400 SaO2% (BldA) [Mass fraction] 95 % Rosa Cioce AMMONIUM NITRATE 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 Phone: [facility] 08-19-2023 09:16-0400 Systolic blood pressure 112 mm[Hg] Rosa Cioce AMMONIUM NITRATE 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 Phone: [facility] 08-11-2023 10:27-0400 Body temperature 98.29 [degF] Heather Davis MD Work Phone: [facility] 08-11-2023 10:27-0400 Diastolic blood pressure 54 mm[Hg] Heather Davis MD Work Phone: [facility] 08-11-2023 10:27-0400 Heart rate 57 /min Heather Davis MD Work Phone: [facility] 08-11-2023 10:27-0400 Respiratory rate 18 /min Heather Davis MD Work Phone: [facility] 08-11-2023 10:27-0400 SaO2% (BldA) [Mass fraction] 100 % Heather Davis MD Work Phone: [facility] 08-11-2023 10:27-0400 Systolic blood pressure 109 mm[Hg] Heathre Davis MD Work Phone: [facility] 08-06-2023 12:47-0400 Body height 157.5 cm Bill Woods PA-C Work Phone: [facility] 08-06-2023 12:47-0400 Body mass index (BMI) [Ratio] 28.35 kg/m2 Bill Woods PA-C Work Phone: [facility] 08-06-2023 12:47-0400 Body weight 70.31 kg Bill Young PA-C Work Phone: [facility] 08-06-2023 12:47-0400 Diastolic blood pressure 52 mm[Hg] Bill Young PA-C Work Phone: [facility] 08-06-2023 12:47-0400 Heart rate 70 /min Bill Young PA-C Work Phone: [facility] 08-06-2023 12:47-0400 Systolic blood pressure 107 mm[Hg] Bill Young PA-C Work Phone: [facility] 06-24-2023 09:20-0500 Body height 157.5 cm Bill Young PA-C Work Phone: [facility] 06-24-2023 09:20-0500 Body weight 68.04 kg Bill Young PA-C Work Phone: [facility] 06-24-2023 09:20-0500 Diastolic blood pressure 63 mm[Hg] Bill Young PA-C Work Phone: [facility] 06-24-2023 09:20-0500 Heart rate 74 /min Bill Young PA-C Work Phone: [facility] 06-24-2023 09:20-0500 Respiratory rate 18 /min Bill Young PA-C Work Phone: [facility] 06-24-2023 09:20-0500 Systolic blood pressure 111 mm[Hg] Bill Young PA-C Work Phone: [facility] 06-16-2023 13:59-0500 Body height 157.5 cm Heather Davis MD Work Phone: [facility] 06-16-2023 13:59-0500 Body temperature 97.7 [degF] Heather Davis MD Work Phone: [facility] 06-16-2023 13:59-0500 Body weight 74.39 kg Heather Davis MD Work Phone: [facility] 06-16-2023 13:59-0500 Diastolic blood pressure 53 mm[Hg] Heather Davis MD Work Phone: [facility] 06-16-2023 13:59-0500 Heart rate 69 /min Heather Davis MD Work Phone: [facility] 06-16-2023 13:59-0500 SaO2% (BldA) [Mass fraction] 98 % Heather Davis MD Work Phone: [facility] 06-16-2023 13:59-0500 Systolic blood pressure 128 mm[Hg] Heather Davis MD Work Phone: [facility] 04-03-2023 09:33-0500 Body height 157.5 cm Heather Davis MD Work Phone: [facility] 04-03-2023 09:33-0500 Body temperature 97.11 [degF] Heather Davis MD Work Phone: [facility] 04-03-2023 09:33-0500 Body weight 68.04 kg Heather Davis MD Work Phone: [facility] 04-03-2023 09:33-0500 Diastolic blood pressure 55 mm[Hg] Heather Davis MD Work Phone: [facility] 04-03-2023 09:33-0500 Heart rate 64 /min Heather Davis MD Work Phone: [facility] 04-03-2023 09:33-0500 Respiratory rate 16 /min Heather Davis MD Work Phone: [facility] 04-03-2023 09:33-0500 SaO2% (BldA) [Mass fraction] 94 % Heather Davis MD Work Phone: [facility] 04-03-2023 09:33-0500 Systolic blood pressure 138 mm[Hg] Heather Davis MD Work Phone: [facility] 03-11-2023 09:47-0500 Body height 157.5 cm Heather Davis MD Work Phone: [facility] 03-11-2023 09:47-0500 Body temperature 97.7 [degF] Heather Davis MD Work Phone: [facility] 03-11-2023 09:47-0500 Body weight 66.22 kg Heather Davis MD Work Phone: [facility] 03-11-2023 09:47-0500 Diastolic blood pressure 62 mm[Hg] Heather Davis MD Work Phone: [facility] 03-11-2023 09:47-0500 Heart rate 67 /min Heather Davis MD Work Phone: [facility] 03-11-2023 09:47-0500 SaO2% (BldA) [Mass fraction] 100 % Heather Davis MD Work Phone: [facility] 03-11-2023 09:47-0500 Systolic blood pressure 119 mm[Hg] Heather Davis MD Work Phone: [facility] 02-11-2023 08:36-0400 Body height 157.5 cm Rosa Cioce AMMONIUM NITRATE 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 Phone: [facility] 02-11-2023 08:36-0400 Body weight 66.95 kg Rosa Cioce AMMONIUM NITRATE 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 Phone: [facility] 02-11-2023 08:36-0400 Diastolic blood pressure 70 mm[Hg] Rosa Cioce AMMONIUM NITRATE 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 Phone: [facility] 02-11-2023 08:36-0400 Heart rate 65 /min Rosa Cioce AMMONIUM NITRATE 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 Phone: [facility] 02-11-2023 08:36-0400 SaO2% (BldA) [Mass fraction] 94 % Rosa Cioce AMMONIUM NITRATE 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 Phone: [facility] 02-11-2023 08:36-0400 Systolic blood pressure 142 mm[Hg] Rosa Cioce AMMONIUM NITRATE 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 Phone: [facility] 01-29-2023 12:38-0400 Body height 157.5 cm Bill Young PA-C Work Phone: [facility] 01-29-2023 12:38-0400 Body weight 66.22 kg Bill Young PA-C Work Phone: [facility] 01-29-2023 12:38-0400 Diastolic blood pressure 74 mm[Hg] Bill Young PA-C Work Phone: [facility] 01-29-2023 12:38-0400 Heart rate 63 /min Bill Young PA-C Work Phone: [facility] 01-29-2023 12:38-0400 Systolic blood pressure 136 mm[Hg] Bill Young PA-C Work Phone: [facility] 01-26-2023 08:34-0400 Body weight 66.22 kg Fawad Simmons AMMONIUM NITRATE 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 Phone: [facility] 01-26-2023 08:34-0400 Diastolic blood pressure 82 mm[Hg] Fawad Simmons AMMONIUM NITRATE 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 Phone: [facility] 01-26-2023 08:34-0400 Heart rate 58 /min Fawad Simmons AMMONIUM NITRATE 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 Phone: [facility] 01-26-2023 08:34-0400 Systolic blood pressure 138 mm[Hg] Fawad Simmons AMMONIUM NITRATE 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 Phone: [facility] 01-19-2023 07:59-0400 Body weight 72.58 kg Cameron Sher Jr., MD Work Phone: [facility] 01-19-2023 07:59-0400 Diastolic blood pressure 75 mm[Hg] Cameron Sher Jr., MD Work Phone: [facility] 01-19-2023 07:59-0400 Heart rate 64 /min Cameron Sher Jr., MD Work Phone: [facility] 01-19-2023 07:59-0400 Respiratory rate 18 /min Cameron Sher Jr., MD Work Phone: [facility] 01-19-2023 07:59-0400 SaO2% (BldA) [Mass fraction] 98 % Cameron Sher Jr., MD Work Phone: [facility] 01-19-2023 07:59-0400 Systolic blood pressure 124 mm[Hg] Cameron Sher Jr., MD Work Phone: [facility] 01-15-2023 10:50-0400 Diastolic blood pressure 72 mm[Hg] Meka Webb MD Work Phone: [facility] 01-15-2023 10:50-0400 Heart rate 59 /min Meka Webb MD Work Phone: [facility] 01-15-2023 10:50-0400 SaO2% (BldA) [Mass fraction] 98 % Meka Webb MD Work Phone: [facility] 01-15-2023 10:50-0400 Systolic blood pressure 141 mm[Hg] Meka Webb MD Work Phone: [facility] 01-14-2023 10:06-0400 Body height 157.5 cm Bill Young PA-C Work Phone: [facility] 01-14-2023 10:06-0400 Body weight 72.58 kg Bill Young PA-C Work Phone: [facility] 01-14-2023 10:06-0400 Diastolic blood pressure 63 mm[Hg] Bill Young PA-C Work Phone: [facility] 01-14-2023 10:06-0400 Heart rate 55 /min Bill Young PA-C Work Phone: [facility] 01-14-2023 10:06-0400 Respiratory rate 20 /min Bill Young PA-C Work Phone: [facility] 01-14-2023 10:06-0400 Systolic blood pressure 141 mm[Hg] Bill Woods PA-C Work Phone: [facility] 12-10-2022 10:25-0400 Body height 157.5 cm Heather Davis MD Work Phone: [facility] 12-10-2022 10:25-0400 Body temperature 98.2 [degF] Heather Davis MD Work Phone: [facility] 12-10-2022 10:25-0400 Body weight 70.31 kg Heather Davis MD Work Phone: [facility] 12-10-2022 10:25-0400 Diastolic blood pressure 77 mm[Hg] Heather Davis MD Work Phone: [facility] 12-10-2022 10:25-0400 Heart rate 56 /min Heather Davis MD Work Phone: [facility] 12-10-2022 10:25-0400 SaO2% (BldA) [Mass fraction] 95 % Heather Davis MD Work Phone: [facility] 12-10-2022 10:25-0400 Systolic blood pressure 161 mm[Hg] Heather Davis MD Work Phone: [facility] 12-03-2022 14:12-0400 Diastolic blood pressure 60 mm[Hg] Bill Woods PA-C Work Phone: [facility] 12-03-2022 14:12-0400 Heart rate 52 /min Bill Woods PA-C Work Phone: [facility] 12-03-2022 14:12-0400 Systolic blood pressure 122 mm[Hg] Bill Woods PA-C Work Phone: [facility] 11-04-2022 13:31-0400 Body height 157.5 cm Heather Davis MD Work Phone: [facility] 11-04-2022 13:31-0400 Body temperature 97.3 [degF] Heather Davis MD Work Phone: [facility] 11-04-2022 13:31-0400 Body weight 70.31 kg Heather Davis MD Work Phone: [facility] 11-04-2022 13:31-0400 Diastolic blood pressure 58 mm[Hg] Heather Davis MD Work Phone: [facility] 11-04-2022 13:31-0400 Heart rate 63 /min Heather Davis MD Work Phone: [facility] 11-04-2022 13:31-0400 Respiratory rate 16 /min Heather Davis MD Work Phone: [facility] 11-04-2022 13:31-0400 SaO2% (BldA) [Mass fraction] 97 % Heather Davis MD Work Phone: [facility] 11-04-2022 13:31-0400 Systolic blood pressure 106 mm[Hg] Heather Davis MD Work Phone: [facility] 09-03-2022 08:17-0400 Body weight 70.31 kg Bill Young PA-C Work Phone: [facility] 09-03-2022 08:17-0400 Diastolic blood pressure 73 mm[Hg] Bill Young PA-C Work Phone: [facility] 09-03-2022 08:17-0400 Heart rate 71 /min Bill Young PA-C Work Phone: [facility] 09-03-2022 08:17-0400 Systolic blood pressure 137 mm[Hg] Bill Young PA-C Work Phone: [facility] 08-06-2022 10:47-0400 Body weight 76.66 kg Rosa Cioce AMMONIUM NITRATE 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 Phone: [facility] 07-30-2022 10:20-0400 Body weight 73.94 kg Bill Young PA-C Work Phone: [facility] 07-30-2022 10:20-0400 Diastolic blood pressure 57 mm[Hg] Bill Carlos PA-C Work Phone: [facility] 07-30-2022 10:20-0400 Heart rate 57 /min Bill Carlos PA-C Work Phone: [facility] 07-30-2022 10:20-0400 Systolic blood pressure 123 mm[Hg] Bill Carlos PA-C Work Phone: [facility] 04-02-2022 23:57-0500 Diastolic blood pressure 74 mm[Hg] Dr. Tom Sherman Work Phone: [facility] Work Phone: 04-02-2022 23:57-0500 Heart rate 63 /min Dr. Tom Sherman Work Phone: [facility] Work Phone: 04-02-2022 23:57-0500 Respiratory rate 16 /min Dr. Tom Sherman Work Phone: [facility] Work Phone: 04-02-2022 23:57-0500 SaO2% (BldA) [Mass fraction] 97 % Dr. Tom Sherman Work Phone: [facility] Work Phone: 04-02-2022 23:57-0500 Systolic blood pressure 138 mm[Hg] Dr. Tom Sherman Work Phone: [facility] Work Phone: 04-02-2022 20:22-0500 Body height 157.[address] Tom Sherman Work Phone: [facility] Work Phone: 04-02-2022 20:22-0500 Body mass index (BMI) [Ratio] 31.4 kg/m2 Dr. Tom Sherman Work Phone: [facility] Work Phone: 04-02-2022 20:22-0500 Body temperature 98 [degF] Dr. Tom Sherman Work Phone: [facility] Work Phone: 04-02-2022 20:22-0500 Body weight 78.[address] Tom Sherman Work Phone: [facility] Work Phone: 04-01-2022 10:49-0500 Body temperature 96.3 [degF] Dr. Tom Sherman Work Phone: [facility] Work Phone: 04-01-2022 10:49-0500 Body weight 78.[address] Tom Sherman Work Phone: [facility] Work Phone: 04-01-2022 10:49-0500 Diastolic blood pressure 64 mm[Hg] Dr. Tom Sherman Work Phone: [facility] Work Phone: 04-01-2022 10:49-0500 Heart rate 56 /min Dr. Tom Sherman Work Phone: [facility] Work Phone: 04-01-2022 10:49-0500 Respiratory rate 18 /min Dr. Tom Sherman Work Phone: [facility] Work Phone: 04-01-2022 10:49-0500 SaO2% (BldA) [Mass fraction] 96 % Dr. Tom Sherman Work Phone: [facility] Work Phone: 04-01-2022 10:49-0500 Systolic blood pressure 114 mm[Hg] Dr. Tom Sherman Work Phone: [facility] Work Phone: 02-11-2022 10:32-0400 Body height 157.5 cm Bill Woods PA-C Work Phone: [facility] 02-11-2022 10:32-0400 Body weight 74.39 kg Bill Woods PA-C Work Phone: [facility] 02-11-2022 10:32-0400 Diastolic blood pressure 67 mm[Hg] Bill Woods PA-C Work Phone: [facility] 02-11-2022 10:32-0400 Heart rate 62 /min Bill Woods PA-C Work Phone: [facility] 02-11-2022 10:32-0400 Systolic blood pressure 106 mm[Hg] Bill Woods PA-C Work Phone: [facility] 02-07-2022 18:09-0400 Body temperature 98.5 [degF] Dr. Tom Sherman Work Phone: [facility] Work Phone: 02-07-2022 18:09-0400 Diastolic blood pressure 74 mm[Hg] Dr. Tom Sherman Work Phone: [facility] Work Phone: 02-07-2022 18:09-0400 Heart rate 78 /min Dr. Tom Sherman Work Phone: [facility] Work Phone: 02-07-2022 18:09-0400 Systolic blood pressure 102 mm[Hg] Dr. Tom Sherman Work Phone: [facility] Work Phone: 02-07-2022 18:05-0400 Respiratory rate 17 /min Dr. Tom Sherman Work Phone: [facility] Work Phone: 02-07-2022 18:05-0400 SaO2% (BldA) [Mass fraction] 98 % Dr. Tom Sherman Work Phone: [facility] Work Phone: 02-07-2022 14:22-0400 Body height 157.[address] Tom Sherman Work Phone: [facility] Work Phone: 02-07-2022 14:22-0400 Body mass index (BMI) [Ratio] 30.5 kg/m2 Dr. Tom Sherman Work Phone: [facility] Work Phone: 02-07-2022 14:22-0400 Body weight 75.[address] Tom Sherman Work Phone: [facility] Work Phone: 01-14-2022 13:17-0400 Body mass index (BMI) [Ratio] 28.5 kg/m2 Dr. Tom Sherman Work Phone: [facility] Work Phone: 01-14-2022 13:17-0400 Body weight 70.[address] Tom Sherman Work Phone: [facility] Work Phone: 01-14-2022 13:17-0400 Diastolic blood pressure 70 mm[Hg] Dr. Tom Sherman Work Phone: [facility] Work Phone: 01-14-2022 13:17-0400 Heart rate 90 /min Dr. Tom Sherman Work Phone: [facility] Work Phone: 01-14-2022 13:17-0400 Respiratory rate 16 /min Dr. Tom Sherman Work Phone: [facility] Work Phone: 01-14-2022 13:17-0400 Systolic blood pressure 108 mm[Hg] Dr. Tom Sherman Work Phone: [facility] Work Phone: 12-24-2021 13:34-0400 Body mass index (BMI) [Ratio] 30.5 kg/m2 Dr. Tom Sherman Work Phone: [facility] Work Phone: 12-24-2021 13:34-0400 Body temperature 98.6 [degF] Dr. Tom Sherman Work Phone: [facility] Work Phone: 12-24-2021 13:34-0400 Body weight 75.[address] Tom Sherman Work Phone: [facility] Work Phone: 12-24-2021 13:34-0400 Diastolic blood pressure 70 mm[Hg] Dr. Tom Sherman Work Phone: [facility] Work Phone: 12-24-2021 13:34-0400 Heart rate 74 /min Dr. Tom Sherman Work Phone: [facility] Work Phone: 12-24-2021 13:34-0400 Respiratory rate 14 /min Dr. Tom Sherman Work Phone: [facility] Work Phone: 12-24-2021 13:34-0400 SaO2% (BldA) [Mass fraction] 94 % Dr. Tom Sherman Work Phone: [facility] Work Phone: 12-24-2021 13:34-0400 Systolic blood pressure 136 mm[Hg] Dr. Tom Sherman Work Phone: [facility] Work Phone: 11-20-2021 14:30-0400 Body temperature 98.2 [degF] Dr. Tom Sherman Work Phone: [facility] Work Phone: 11-20-2021 14:30-0400 Diastolic blood pressure 65 mm[Hg] Dr. Tom Sherman Work Phone: [facility] Work Phone: 11-20-2021 14:30-0400 Heart rate 76 /min Dr. Tom Sherman Work Phone: [facility] Work Phone: 11-20-2021 14:30-0400 Respiratory rate 18 /min Dr. Tom Sherman Work Phone: [facility] Work Phone: 11-20-2021 14:30-0400 SaO2% (BldA) [Mass fraction] 100 % Dr. Tom Sherman Work Phone: [facility] Work Phone: 11-20-2021 14:30-0400 Systolic blood pressure 137 mm[Hg] Dr. Tom Sherman Work Phone: [facility] Work Phone: 11-17-2021 07:22-0400 Inhaled oxygen flow rate 2 L/min Dr. Tom Sherman Work Phone: [facility] Work Phone: 11-16-2021 23:28-0400 Body height 157.[address] Tom Sherman Work Phone: [facility] Work Phone: 11-16-2021 23:28-0400 Body mass index (BMI) [Ratio] 29.2 kg/m2 Dr. Tom Sherman Work Phone: [facility] Work Phone: 11-16-2021 23:28-0400 Body weight 72.[address] Tom Sherman Work Phone: [facility] Work Phone: 11-16-2021 22:25-0400 Body temperature 98.7 [degF] Dr. Tom Sherman Work Phone: [facility] Work Phone: 11-16-2021 22:25-0400 Diastolic blood pressure 78 mm[Hg] Dr. Tom Sherman Work Phone: [facility] Work Phone: 11-16-2021 22:25-0400 Heart rate 80 /min Dr. Tom Sherman Work Phone: [facility] Work Phone: 11-16-2021 22:25-0400 Respiratory rate 15 /min Dr. Tom Sherman Work Phone: [facility] Work Phone: 11-16-2021 22:25-0400 SaO2% (BldA) [Mass fraction] 97 % Dr. Tom Sherman Work Phone: [facility] Work Phone: 11-16-2021 22:25-0400 Systolic blood pressure 108 mm[Hg] Dr. Tom Sherman Work Phone: [facility] Work Phone: 11-16-2021 18:57-0400 Body height [address] Tom Sherman Work Phone: [facility] Work Phone: 11-16-2021 18:57-0400 Body mass index (BMI) [Ratio] 30.1 kg/m2 Dr. Tom Sherman Work Phone: [facility] Work Phone: 11-16-2021 18:57-0400 Body weight 74.[address] Tom Sherman Work Phone: [facility] Work Phone: 11-05-2021 10:18-0400 Body mass index (BMI) [Ratio] 29.9 kg/m2 Dr. Tom Sherman Work Phone: [facility] Work Phone: 11-05-2021 10:18-0400 Body temperature 97.6 [degF] Dr. Tom Sherman Work Phone: [facility] Work Phone: 11-05-2021 10:18-0400 Body weight 74.[address] Tom Sherman Work Phone: [facility] Work Phone: 11-05-2021 10:18-0400 Diastolic blood pressure 84 mm[Hg] Dr. Tom Sherman Work Phone: [facility] Work Phone: 11-05-2021 10:18-0400 Heart rate 96 /min Dr. Tom Sherman Work Phone: [facility] Work Phone: 11-05-2021 10:18-0400 Respiratory rate 18 /min Dr. Tom Sherman Work Phone: [facility] Work Phone: 11-05-2021 10:18-0400 SaO2% (BldA) [Mass fraction] 96 % Dr. Tom Sherman Work Phone: [facility] Work Phone: 11-05-2021 10:18-0400 Systolic blood pressure 154 mm[Hg] Dr. Tom Sherman Work Phone: [facility] Work Phone: 10-10-2021 13:52-0400 Body mass index (BMI) [Ratio] 29 kg/m2 Dr. Tom Sherman Work Phone: [facility] Work Phone: 10-10-2021 13:52-0400 Body temperature 97.6 [degF] Dr. Tom Sherman Work Phone: [facility] Work Phone: 10-10-2021 13:52-0400 Body weight 72.[address] Tom Sherman Work Phone: [facility] Work Phone: 10-10-2021 13:52-0400 Diastolic blood pressure 70 mm[Hg] Dr. Tom Sherman Work Phone: [facility] Work Phone: 10-10-2021 13:52-0400 Heart rate 91 /min Dr. Tom Sehrman Work Phone: [facility] Work Phone: 10-10-2021 13:52-0400 Respiratory rate 18 /min Dr. Tom Sherman Work Phone: [facility] Work Phone: 10-10-2021 13:52-0400 SaO2% (BldA) [Mass fraction] 92 % Dr. Tom Sherman Work Phone: [facility] Work Phone: 10-10-2021 13:52-0400 Systolic blood pressure 130 mm[Hg] Dr. Tom Sherman Work Phone: [facility] Work Phone: 10-07-2021 20:08-0400 Diastolic blood pressure 60 mm[Hg] Dr. Tom Sherman Work Phone: [facility] Work Phone: 10-07-2021 20:08-0400 Heart rate 82 /min Dr. Tom Sherman Work Phone: [facility] Work Phone: 10-07-2021 20:08-0400 Respiratory rate 16 /min Dr. Tom Sherman Work Phone: [facility] Work Phone: 10-07-2021 20:08-0400 SaO2% (BldA) [Mass fraction] 95 % Dr. Tom Sherman Work Phone: [facility] Work Phone: 10-07-2021 20:08-0400 Systolic blood pressure 108 mm[Hg] Dr. Tom Sherman Work Phone: [facility] Work Phone: 10-07-2021 17:45-0400 Body height 157.[address] Tom Sherman Work Phone: [facility] Work Phone: 10-07-2021 17:45-0400 Body mass index (BMI) [Ratio] 32.3 kg/m2 Dr. Tom Sherman Work Phone: [facility] Work Phone: 10-07-2021 17:45-0400 Body temperature 97.8 [degF] Dr. Tom Sherman Work Phone: [facility] Work Phone: 10-07-2021 17:45-0400 Body weight 80.[address] Tom Sherman Work Phone: [facility] Work Phone: 09-20-2021 10:14-0400 Body mass index (BMI) [Ratio] 27.4 kg/m2 Dr. Tom Sherman Work Phone: [facility] Work Phone: 09-20-2021 10:14-0400 Body temperature 97.6 [degF] Dr. Tom Sherman Work Phone: [facility] Work Phone: 09-20-2021 10:14-0400 Body weight 74.[address] Tom Sherman Work Phone: [facility] Work Phone: 09-20-2021 10:14-0400 Diastolic blood pressure 72 mm[Hg] Dr. Tom Sherman Work Phone: [facility] Work Phone: 09-20-2021 10:14-0400 Heart rate 62 /min Dr. Tom Sherman Work Phone: [facility] Work Phone: 09-20-2021 10:14-0400 Respiratory rate 14 /min Dr. Tom Sherman Work Phone: [facility] Work Phone: 09-20-2021 10:14-0400 SaO2% (BldA) [Mass fraction] 96 % Dr. Tom Sherman Work Phone: [facility] Work Phone: 09-20-2021 10:14-0400 Systolic blood pressure 136 mm[Hg] Dr. Tom Sherman Work Phone: [facility] Work Phone: 09-20-2021 10:14-0400 Body mass index (BMI) [Ratio] 27.4 kg/m2 Dr. Tom Sherman Work Phone: [facility] Work Phone: 09-20-2021 10:14-0400 Body temperature 97.6 [degF] Dr. oTm Sherman Work Phone: [facility] Work Phone: 09-20-2021 10:14-0400 Body weight 74.[address] Tom Sherman Work Phone: [facility] Work Phone: 09-20-2021 10:14-0400 Diastolic blood pressure 72 mm[Hg] Dr. Tom Sherman Work Phone: [facility] Work Phone: 09-20-2021 10:14-0400 Heart rate 62 /min Dr. Tom Sherman Work Phone: [facility] Work Phone: 09-20-2021 10:14-0400 Respiratory rate 14 /min Dr. Tom Sherman Work Phone: [facility] Work Phone: 09-20-2021 10:14-0400 SaO2% (BldA) [Mass fraction] 96 % Dr. Tom Sherman Work Phone: [facility] Work Phone: 09-20-2021 10:14-0400 Systolic blood pressure 136 mm[Hg] Dr. Tom Sherman Work Phone: [facility] Work Phone: 08-21-2021 20:42-0400 Diastolic blood pressure 76 mm[Hg] Dr. Tom Sherman Work Phone: [facility] Work Phone: 08-21-2021 20:42-0400 Heart rate 81 /min Dr. Tom Sherman Work Phone: [facility] Work Phone: 08-21-2021 20:42-0400 Respiratory rate 14 /min Dr. Tom Sherman Work Phone: [facility] Work Phone: 08-21-2021 20:42-0400 SaO2% (BldA) [Mass fraction] 98 % Dr. Tom Sherman Work Phone: [facility] Work Phone: 08-21-2021 20:42-0400 Systolic blood pressure 124 mm[Hg] Dr. Tom Sherman Work Phone: [facility] Work Phone: 08-21-2021 18:33-0400 Body height 165.[address] Tom Sherman Work Phone: [facility] Work Phone: 08-21-2021 18:33-0400 Body mass index (BMI) [Ratio] 29 kg/m2 Dr. Tom Sherman Work Phone: [facility] Work Phone: 08-21-2021 18:33-0400 Body temperature 97.7 [degF] Dr. Tom Sherman Work Phone: [facility] Work Phone: 08-21-2021 18:33-0400 Body weight 79.[address] Tom Sherman Work Phone: [facility] Work Phone: 08-08-2021 09:59-0400 Body mass index (BMI) [Ratio] 28.1 kg/m2 Dr. Tom Sherman Work Phone: [facility] Work Phone: 08-08-2021 09:59-0400 Body temperature 97.5 [degF] Dr. Tom Sherman Work Phone: [facility] Work Phone: 08-08-2021 09:59-0400 Body weight 76.[address] Tom Sherman Work Phone: [facility] Work Phone: 08-08-2021 09:59-0400 Diastolic blood pressure 74 mm[Hg] Dr. Tom Sherman Work Phone: [facility] Work Phone: 08-08-2021 09:59-0400 Heart rate 79 /min Dr. Tom Sherman Work Phone: [facility] Work Phone: 08-08-2021 09:59-0400 Respiratory rate 14 /min Dr. Tom Sherman Work Phone: [facility] Work Phone: 08-08-2021 09:59-0400 SaO2% (BldA) [Mass fraction] 96 % Dr. Tom Sherman Work Phone: [facility] Work Phone: 08-08-2021 09:59-0400 Systolic blood pressure 118 mm[Hg] Dr. Tom Sherman Work Phone: [facility] Work Phone: 08-08-2021 09:59-0400 Body height 165.[address] Tom Sherman Work Phone: [facility] Work Phone: 08-08-2021 09:59-0400 Body mass index (BMI) [Ratio] 28.1 kg/m2 Dr. Tom Sherman Work Phone: [facility] Work Phone: 08-08-2021 09:59-0400 Body temperature 97.5 [degF] Dr. Tom Sherman Work Phone: [facility] Work Phone: 08-08-2021 09:59-0400 Body weight 76.[address] Tom Sherman Work Phone: [facility] Work Phone: 08-08-2021 09:59-0400 Diastolic blood pressure 74 mm[Hg] Dr. Tom Sherman Work Phone: [facility] Work Phone: 08-08-2021 09:59-0400 Heart rate 79 /min Dr. Tom Sherman Work Phone: [facility] Work Phone: 08-08-2021 09:59-0400 Respiratory rate 14 /min Dr. Tom Sherman Work Phone: [facility] Work Phone: 08-08-2021 09:59-0400 SaO2% (BldA) [Mass fraction] 96 % Dr. Tom Sherman Work Phone: [facility] Work Phone: 08-08-2021 09:59-0400 Systolic blood pressure 118 mm[Hg] Dr. Tom Sherman Work Phone: [facility] Work Phone: 07-03-2021 09:38-0500 Body mass index (BMI) [Ratio] 27.6 kg/m2 Dr. oTm Sherman Work Phone: [facility] Work Phone: 07-03-2021 09:38-0500 Body temperature 97.5 [degF] Dr. Tom Sherman Work Phone: [facility] Work Phone: 07-03-2021 09:38-0500 Body weight 75.[address] Tom Sherman Work Phone: [facility] Work Phone: 07-03-2021 09:38-0500 Diastolic blood pressure 74 mm[Hg] Dr. Tom Sherman Work Phone: [facility] Work Phone: 07-03-2021 09:38-0500 Heart rate 76 /min Dr. Tom Sherman Work Phone: [facility] Work Phone: 07-03-2021 09:38-0500 Respiratory rate 14 /min Dr. Tom Sherman Work Phone: [facility] Work Phone: 07-03-2021 09:38-0500 SaO2% (BldA) [Mass fraction] 95 % Dr. Tom Sherman Work Phone: [facility] Work Phone: 07-03-2021 09:38-0500 Systolic blood pressure 138 mm[Hg] Dr. Tom Sherman Work Phone: [facility] Work Phone: 06-25-2021 12:21-0500 Body mass index (BMI) [Ratio] 30.4 kg/m2 Dr. Tom Sherman Work Phone: [facility] Work Phone: 06-25-2021 12:21-0500 Body temperature 983 [degF] Dr. Tom Sherman Work Phone: [facility] Work Phone: 06-25-2021 12:21-0500 Body weight [address] Tom Sherman Work Phone: [facility] Work Phone: 06-25-2021 12:21-0500 Diastolic blood pressure 68 mm[Hg] Dr. Tom Sherman Work Phone: [facility] Work Phone: 06-25-2021 12:21-0500 Heart rate 64 /min Dr. Tom Sherman Work Phone: [facility] Work Phone: 06-25-2021 12:21-0500 Respiratory rate 14 /min Dr. Tom Sherman Work Phone: [facility] Work Phone: 06-25-2021 12:21-0500 SaO2% (BldA) [Mass fraction] 96 % Dr. Tom Sherman Work Phone: [facility] Work Phone: 06-25-2021 12:21-0500 Systolic blood pressure 134 mm[Hg] Dr. Tom Sherman Work Phone: [facility] Work Phone: 06-22-2021 14:33-0500 Diastolic blood pressure 59 mm[Hg] Dr. Tom Sherman Work Phone: [facility] Work Phone: 06-22-2021 14:33-0500 Heart rate 78 /min Dr. Tom Sherman Work Phone: [facility] Work Phone: 06-22-2021 14:33-0500 Respiratory rate 18 /min Dr. Tom Sherman Work Phone: [facility] Work Phone: 06-22-2021 14:33-0500 SaO2% (BldA) [Mass fraction] 96 % Dr. Tom Sherman Work Phone: [facility] Work Phone: 06-22-2021 14:33-0500 Systolic blood pressure 120 mm[Hg] Dr. Tom Sherman Work Phone: [facility] Work Phone: 06-22-2021 10:41-0500 Body mass index (BMI) [Ratio] 30.5 kg/m2 Dr. Tom Sherman Work Phone: [facility] Work Phone: 06-22-2021 10:41-0500 Body temperature 97.8 [degF] Dr. Tom Sherman Work Phone: [facility] Work Phone: 06-22-2021 10:41-0500 Body weight 83.[address] Tom Sherman Work Phone: [facility] Work Phone: 06-15-2021 20:39-0500 Diastolic blood pressure 53 mm[Hg] VERITO TAM MD [facility] 06-15-2021 20:39-0500 Heart rate 77 /min VERITO TAM MD [facility] 06-15-2021 20:39-0500 Respiratory rate 16 /min VERITO TAM MD [facility] 06-15-2021 20:39-0500 Systolic blood pressure 108 mm[Hg] VERITO TAM MD [facility] 06-15-2021 19:54-0500 Body temperature 97.7 [degF] VERITO TAM MD [facility] 06-15-2021 19:54-0500 Diastolic blood pressure 72 mm[Hg] VERITO TAM MD [facility] 06-15-2021 19:54-0500 Heart rate 79 /min VERITO TAM MD [facility] 06-15-2021 19:54-0500 Respiratory rate 18 /min VERITO TAM MD [facility] 06-15-2021 19:54-0500 Systolic blood pressure 145 mm[Hg] VERITO TAM MD [facility] 05-16-2021 12:07-0500 Diastolic blood pressure 72 mm[Hg] Dr. Tom Sherman Work Phone: [facility] Work Phone: 05-16-2021 12:07-0500 Heart rate 80 /min Dr. Tom Sherman Work Phone: [facility] Work Phone: 05-16-2021 12:07-0500 Respiratory rate 16 /min Dr. Tom Sherman Work Phone: [facility] Work Phone: 05-16-2021 12:07-0500 SaO2% (BldA) [Mass fraction] 96 % Dr. Tom Sherman Work Phone: [facility] Work Phone: 05-16-2021 12:07-0500 Systolic blood pressure 139 mm[Hg] Dr. Tom Sherman Work Phone: [facility] Work Phone: 05-16-2021 08:53-0500 Body mass index (BMI) [Ratio] 29.9 kg/m2 Dr. Tom Sherman Work Phone: [facility] Work Phone: 05-16-2021 08:53-0500 Body temperature 98.4 [degF] Dr. Tom Sherman Work Phone: [facility] Work Phone: 05-16-2021 08:53-0500 Body weight 81.[address] Tom Sherman Work Phone: [facility] Work Phone: 05-11-2021 15:12-0500 Diastolic blood pressure 65 mm[Hg] Dr. Tom Sherman Work Phone: [facility] Work Phone: 05-11-2021 15:12-0500 Heart rate 60 /min Dr. Tom Sherman Work Phone: [facility] Work Phone: 05-11-2021 15:12-0500 Respiratory rate 16 /min Dr. Tom Sherman Work Phone: [facility] Work Phone: 05-11-2021 15:12-0500 SaO2% (BldA) [Mass fraction] 97 % Dr. Tom Sherman Work Phone: [facility] Work Phone: 05-11-2021 15:12-0500 Systolic blood pressure 137 mm[Hg] Dr. Tom Sherman Work Phone: [facility] Work Phone: 05-11-2021 13:06-0500 Body mass index (BMI) [Ratio] 28.3 kg/m2 Dr. Tom Sherman Work Phone: [facility] Work Phone: 05-11-2021 13:06-0500 Body temperature 97.9 [degF] Dr. Tom Sherman Work Phone: [facility] Work Phone: 05-11-2021 13:06-0500 Body weight 77.[address] Tom Sherman Work Phone: [facility] Work Phone: 05-08-2021 08:00-0500 SaO2% (BldA) [Mass fraction] 94 % Dr. Tom Sherman Work Phone: [facility] Work Phone: 05-08-2021 07:56-0500 Body temperature 98.6 [degF] Dr. Tom Sherman Work Phone: [facility] Work Phone: 05-08-2021 07:56-0500 Diastolic blood pressure 63 mm[Hg] Dr. Tom Sherman Work Phone: [facility] Work Phone: 05-08-2021 07:56-0500 Heart rate 74 /min Dr. Tom Sherman Work Phone: [facility] Work Phone: 05-08-2021 07:56-0500 Respiratory rate 18 /min Dr. Tom Sherman Work Phone: [facility] Work Phone: 05-08-2021 07:56-0500 Systolic blood pressure 119 mm[Hg] Dr. Tom Sherman Work Phone: [facility] Work Phone: 05-08-2021 04:22-0500 Body weight 77.[address] Tom Sherman Work Phone: [facility] Work Phone: 05-07-2021 23:51-0500 Body mass index (BMI) [Ratio] 28.3 kg/m2 Dr. Tom Sherman Work Phone: [facility] Work Phone: 04-24-2021 10:18-0500 Diastolic blood pressure 73 mm[Hg] Dr. Tom Sherman Work Phone: [facility] Work Phone: 04-24-2021 10:18-0500 Heart rate 70 /min Dr. Tom Sherman Work Phone: [facility] Work Phone: 04-24-2021 10:18-0500 Respiratory rate 20 /min Dr. Tom Sherman Work Phone: [facility] Work Phone: 04-24-2021 10:18-0500 SaO2% (BldA) [Mass fraction] 96 % Dr. Tom Sherman Work Phone: [facility] Work Phone: 04-24-2021 10:18-0500 Systolic blood pressure 113 mm[Hg] Dr. Tom Sherman Work Phone: [facility] Work Phone: 04-24-2021 07:51-0500 Body mass index (BMI) [Ratio] 30.9 kg/m2 Dr. Tom Sherman Work Phone: [facility] Work Phone: 04-24-2021 07:51-0500 Body temperature 98 [degF] Dr. Tom Sherman Work Phone: [facility] Work Phone: 04-24-2021 07:51-0500 Body weight 84.[address] Tom Sherman Work Phone: [facility] Work Phone: 04-19-2021 09:29-0500 Diastolic blood pressure 78 mm[Hg] Dr. Tom Sherman Work Phone: [facility] Work Phone: 04-19-2021 09:29-0500 Respiratory rate 16 /min Dr. Tom Sherman Work Phone: [facility] Work Phone: 04-19-2021 09:29-0500 SaO2% (BldA) [Mass fraction] 97 % Dr. Tom Sherman Work Phone: [facility] Work Phone: 04-19-2021 09:29-0500 Systolic blood pressure 132 mm[Hg] Dr. Tom Sherman Work Phone: [facility] Work Phone: 04-19-2021 06:54-0500 Body mass index (BMI) [Ratio] 30 kg/m2 Dr. Tom Sherman Work Phone: [facility] Work Phone: 04-19-2021 06:54-0500 Body temperature 97.8 [degF] Dr. Tom Sherman Work Phone: [facility] Work Phone: 04-19-2021 06:54-0500 Body weight 79.[address] Tom Sherman Work Phone: [facility] Work Phone: 04-19-2021 06:54-0500 Heart rate 68 /min Dr. Tom Sherman Work Phone: [facility] Work Phone: 04-10-2021 12:42-0500 Body mass index (BMI) [Ratio] 28.9 kg/m2 Dr. Tom Sherman Work Phone: [facility] Work Phone: 04-10-2021 12:42-0500 Body weight 78.[address] Tom Sherman Work Phone: [facility] Work Phone: 04-10-2021 12:42-0500 Diastolic blood pressure 72 mm[Hg] Dr. Tom Sherman Work Phone: [facility] Work Phone: 04-10-2021 12:42-0500 Heart rate 94 /min Dr. Tom Sherman Work Phone: [facility] Work Phone: 04-10-2021 12:42-0500 Respiratory rate 18 /min Dr. Tom Sherman Work Phone: [facility] Work Phone: 04-10-2021 12:42-0500 SaO2% (BldA) [Mass fraction] 93 % Dr. Tom Sherman Work Phone: [facility] Work Phone: 04-10-2021 12:42-0500 Systolic blood pressure 118 mm[Hg] Dr. Tom Sherman Work Phone: [facility] Work Phone: Encounters Encounter Date Encounter Type Care Provider Facility Start: 02-28-2025 ambulatory [facility] Facility :[facility] Start: 11-29-2024 ambulatory [facility] Facility :[facility] Start: 11-16-2024 End: 11-16-2024 ambulatory Bill VANCECassandra Work Phone: Neurology Comment on above: Multiple sclerosis ( HCC) (Primary Dx) Start: 11-16-2024 End: 11-16-2024 Telemedicine consultation with patient Bill Woods PA-C Work Phone: Neurology Start: 11-15-2024 End: 11-15-2024 Telephone encounter Heather Davis MD Work Phone: Pain Management Start: 10-31-2024 End: 11-03-2024 Get Medical Advice Rosa Flores AMMONIUM NITRATE 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 Phone: Endocrinology Comment on above: Refills please Start: 10-26-2024 End: 10-27-2024 Refill Amy Norwood AMMONIUM NITRATE 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 Phone: [facility] Comment on above: Refill Request Start: 10-25-2024 End: 10-25-2024 Office outpatient visit 10 minutes [facility] Comment on above: Muscle spasm (Primar y Dx); Nicotine dependence, cigarettes, uncomplicated; Postprocedural state; Spinal stenosis, multiple sites in spine Start: 10-25-2024 End: 10-25-2024 ambulatory CHLOE CRAIG Facility:[id number] Start: 10-25-2024 End: 10-25-2024 [facility] Comment on above: Low back pain, unspe cified back pain laterality, unspecified chronicity, unspecified whether sciatica present [M54.50] Start: 10-12-2024 End: 10-12-2024 Patient encounter procedure Vaishnavi Soria MD Work Phone: Dermatology Comment on above: Inflamed seborrheic keratosis (Primary Dx); Prurigo nodularis Start: 10-12-2024 End: 10-12-2024 ambulatory VAISHNAVI SORIA Facility:[facility] Start: 10-12-2024 End: 10-12-2024 ambulatory Bill Woods PA-C Work Phone: Neurology Comment on above: Multiple sclerosis ( HCC) (Primary Dx) Start: 10-12-2024 End: 10-12-2024 Telemedicine consultation with patient Bill Carlos INFANTE Work Phone: Neurology Start: 10-11-2024 End: 10-11-2024 ambulatory Melodie Marina [facility] Facility:[facility] Start: 10-10-2024 End: 10-10-2024 Patient encounter procedure Keith Squires OD Work Phone: Ophthalmology Comment on above: MS (multiple scleros is) (HCC) (Primary Dx); Optic nerve atrophy, bilateral; RPE mottling of macula; Vitreous degeneration of both eyes; Pseudophakia; Refractive error; Presbyopia; Dry eye syndrome of bilateral lacrimal glands; Type 2 diabetes mellitus without retinopathy (HCC) Start: 10-10-2024 End: 10-10-2024 ambulatory KEITH SQUIRES Facility:[facility] Start: 10-06-2024 End: 10-06-2024 ambulatory [facility] Facility:[facility] Start: 10-04-2024 End: 10-06-2024 Refill Meka Webb MD Work Phone: Rehab Medicine Comment on above: Refill Request Lidocaine patches Start: 10-03-2024 End: 10-03-2024 ambulatory Melodie [facility] Facility:[facility] Start: 09-29-2024 End: 09-29-2024 ambulatory [facility] Facility:[facility] Start: 09-26-2024 End: 09-26-2024 ambulatory [facility] Facility:[facility] Start: 09-21-2024 End: 09-21-2024 Nursing evaluation of patient and report Aubree Hylton RN Work Phone: Endocrinology Comment on above: Controlled type 2 di abetes mellitus without complication, 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) Start: 09-21-2024 End: 09-21-2024 Patient encounter procedure Rosa Flores APRN.PUBLIC RELATIONS WRITER Work Phone: Endocrinology Comment on above: Controlled type 2 di abetes mellitus without complication, 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) (Primary Dx) Start: 09-21-2024 End: 09-21-2024 ambulatory [facility] Facility:[facility] Start: 09-14-2024 [facility] Facility :[facility] Start: 09-12-2024 End: 09-12-2024 [facility] Facility:[facility] Start: 09-08-2024 End: 09-08-2024 Telephone encounter Heather Davis MD Work Phone: Pain Management Comment on above: Patient Update (Ramila ent called back to reply to post procedure questions./1. What was your pain score with the painful activity prior to the procedure? / Pain score was 7./ /2. What is your percentage of pain relief when doing the activities that previously caused you pain?/ 90% of pain relief/ /3. What is your pain level today?/ Pain level today is 1./ ) Start: 09-06-2024 End: 09-06-2024 Emergency department patient visit [facility] Facility:[facility] Start: 09-01-2024 ambulatory HEATHER DAVIS Facility :[facility] Start: 09-01-2024 End: 09-01-2024 Subsequent hospital visit by physician Heather Davis MD Work Phone: Pain Management Comment on above: Sacroiliitis [M46.1] , Chronic right sacroiliac joint pain [M53.3, G89.29] Start: 08-29-2024 End: 08-29-2024 E-mail encounter from caregiver Heather Davsi MD Work Phone: Pain Management Start: 08-29-2024 End: 08-29-2024 Telephone encounter Heather Davis MD Work Phone: Pain Management Comment on above: Nurse Triage Call Start: 08-29-2024 End: 08-29-2024 Patient encounter procedure Vaishnavi Soria MD Work Phone: Dermatology Comment on above: Prurigo nodularis (P rimary Dx); Folliculitis Start: 08-29-2024 End: 08-29-2024 ambulatory Heather Davis MD Work Phone: Pain Management Comment on above: Pre-Procedure Instru ctions and Arrival Time Start: 08-24-2024 End: 08-24-2024 Telephone encounter Bill Woods PA-C Work Phone: [facility] Comment on above: Appointment (Left vo icemail regarding scheduling Neuropysch testing and follow up in late September/early October respectively. [place] number included for call back.) Start: 08-24-2024 End: 08-24-2024 Patient encounter procedure Bill Woods PA-C Work Phone: Neurology Comment on above: Multiple sclerosis ( HCC) (Primary Dx) Start: 08-24-2024 End: 08-24-2024 ambulatory BILL WOODS Facility:[facility] Start: 08-23-2024 End: 08-23-2024 Emergency department patient visit Melodie Marina [facility] Facility:[facility] Start: 08-17-2024 End: 08-17-2024 ambulatory MELODIE MARINA Facility:[facility] Start: 08-16-2024 End: 10-16-2024 Follow-up encounter Bill Woods PA-C Work Phone: [facility] Start: 08-12-2024 ambulatory MELODIE MARINA Facility:[facility] Start: 08-12-2024 End: 08-12-2024 Subsequent hospital visit by physician Mri [facility] (I-Stat/1.5t) Work Phone: Radiology Comment on above: Multiple sclerosis ( HCC) [G35] Start: 08-09-2024 End: 08-10-2024 Refill Bill Woods PA-C Work Phone: [facility] Comment on above: Refill Request Start: 08-05-2024 End: 08-05-2024 Patient encounter procedure Meka Webb MD Work Phone: Rehab Medicine Comment on above: Cervical myelopathy (HCC) (Primary Dx); History of laminectomy; Sacroiliac joint pain; Oth deforming dorsopathies, sacral and sacrococcygeal region Start: 08-05-2024 End: 08-05-2024 ambulatory MEKA WEBB Facility:[facility] Start: 08-04-2024 End: 08-04-2024 Patient encounter procedure Chloe Craig MD Work Phone: [facility] Comment on above: Postprocedural state Start: 08-04-2024 End: 08-04-2024 ambulatory CHLOE CRAIG Facility:[id number] Start: 08-04-2024 End: 08-04-2024 Subsequent hospital visit by physician [facility] Comment on above: S/P lumbar laminecto my [Z98.890] Start: 08-03-2024 End: 08-03-2024 Telephone encounter Bill Woods PA-C Work Phone: [facility] Comment on above: Appointment ([facility] for patient to call so we can move her neuro test to september) Start: 08-03-2024 End: 08-03-2024 ambulatory Bill Woods PA-C Work Phone: Neurology Comment on above: Multiple sclerosis ( HCC) (Primary Dx) Start: 08-03-2024 End: 08-03-2024 Telemedicine consultation with patient Bill Woods PA-C Work Phone: Neurology Start: 08-02-2024 End: 08-02-2024 Refill Jake Kinsey MD, PhD Work Phone: [facility] Comment on above: Refill Request Start: 08-01-2024 End: 08-01-2024 Follow-up encounter Amy Fowler APRN.PUBLIC RELATIONS WRITER Work Phone: [facility] Comment on above: Results Start: 08-01-2024 End: 08-01-2024 Telephone encounter Chloe Craig MD Work Phone: [facility] Comment on above: Patient Update (Retu rning call) Start: 08-01-2024 End: 08-01-2024 ambulatory Juan Sultana Facility:[facility] Start: 07-29-2024 End: 07-29-2024 ambulatory MELODIE ELIASDER Facility:[facility] Start: 07-29-2024 End: 07-29-2024 Telephone encounter Bill Woods PA-C Work Phone: [facility] Comment on above: Appointment ([facility] for patient to call so we can get her scheduled for her mris,neuropsychological test and to push her follow up back 1-3 months) Start: 07-29-2024 End: 07-29-2024 ambulatory Melodie Marina [facility] Facility:[facility] Start: 07-28-2024 End: 07-28-2024 E-mail encounter from caregiver Amy Fowler APRN.PUBLIC RELATIONS WRITER Work Phone: [facility] Start: 07-28-2024 End: 07-28-2024 ambulatory Amy Fowler APRN.PUBLIC RELATIONS WRITER Work Phone: Neurology Comment on above: Multiple sclerosis ( HCC) (Primary Dx); Memory impairment; Dysarthria; Urinary frequency visit summary Start: 07-28-2024 End: 07-28-2024 Telemedicine consultation with patient Amy Fowler MIKE Work Phone: Neurology Start: 07-27-2024 End: 07-27-2024 Telephone encounter Bill Woods PA-C Work Phone: [facility] Comment on above: Appointment (Call we nt right to voicemail, left message regarding MyChart message requesting appointment with Bill Woods. Included in message was [place] number for call back and notification of appt date/time for patient.) Start: 07-26-2024 End: 08-10-2024 ambulatory Bill Woods PA-C Work Phone: [facility] Comment on above: I need your help Start: 07-22-2024 ambulatory Florence Santos [facility] Start: 07-22-2024 End: 07-24-2024 Evaluation and management of inpatient Florence Santos Facility:[facility] Start: 07-19-2024 End: 07-19-2024 Telephone encounter Rosa Flores APRN.PUBLIC RELATIONS WRITER Work Phone: Endocrinology Comment on above: Orders ([place]) Start: 07-18-2024 ambulatory Florence Santos [facility] Start: 07-18-2024 ambulatory Florence Santos [facility] Start: 07-13-2024 End: 07-13-2024 ambulatory Zebulun Beam [facility] Facility:[facility] Start: 07-10-2024 End: 07-10-2024 Emergency department patient visit Melodie Marina [facility] Facility:[facility] Start: 07-08-2024 End: 07-12-2024 Refill Meka Webb MD Work Phone: Rehab Medicine Comment on above: Refill Request Start: 07-06-2024 End: 07-07-2024 Telephone encounter Roas Flores APRN.PUBLIC RELATIONS WRITER Work Phone: Endocrinology Comment on above: Patient Update Start: 06-27-2024 End: 06-29-2024 ambulatory Meka Webb MD Work Phone: Rehab Medicine Start: 06-27-2024 End: 06-29-2024 Patient encounter procedure Meka Webb MD Work Phone: Rehab Medicine Comment on above: Appointment Start: 06-25-2024 End: 06-25-2024 Emergency department patient visit Melodie Marina [facility] Facility:[facility] Start: 06-21-2024 End: 06-21-2024 ambulatory Zebulugriselda Beam [facility] Facility:[facility] Start: 05-27-2024 End: 05-27-2024 ambulatory Rosa Mattaocreggie ALONZO.PUBLIC RELATIONS WRITER Work Phone: Endocrinology Comment on above: Librevietabitha jo Start: 05-27-2024 End: 05-27-2024 E-mail encounter from caregiver Rosa Flores APRN.[place] Work Phone: Endocrinology Start: 05-26-2024 End: 05-26-2024 ambulatory Rosa Mattaocreggie ALONZO.PUBLIC RELATIONS WRITER Work Phone: Endocrinology Comment on above: Controlled type 2 di abetes mellitus without complication, 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) (Primary Dx) Start: 05-26-2024 End: 05-26-2024 Telemedicine consultation with patient Rosa Mattaoce CHERI.PUBLIC RELATIONS WRITER Work Phone: Endocrinology Start: 05-26-2024 End: 05-27-2024 Telephone encounter Rosa Flores APRN.PUBLIC RELATIONS WRITER Work Phone: Endocrinology Comment on above: Patient Question Start: 05-04-2024 End: 05-04-2024 ambulatory MELODIE MARINA Facility:[facility] Start: 05-04-2024 End: 05-04-2024 Patient encounter procedure Kourtney Purdy OD Work Phone: Ophthalmology Comment on above: MS (multiple scleros is) (HCC) (Primary Dx); Optic nerve atrophy, bilateral; Nonexudative age-related macular degeneration, bilateral, early dry stage; Vitreous degeneration of both eyes; Pseudophakia; Refractive error; Presbyopia Start: 05-03-2024 End: 05-03-2024 ambulatory Melodie Marina [facility] Facility:[facility] Start: 04-18-2024 End: 04-18-2024 ambulatory Rosa Cassandra Flores AMMONIUM NITRATE 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 Phone: Endocrinology Comment on above: [place] Start: 04-12-2024 End: 04-13-2024 Refill Meka Webb MD Work Phone: Rehab Medicine Comment on above: Refill Request Lidocaine patches Start: 04-08-2024 End: 04-08-2024 ambulatory HEATHER DAVIS Facility:[facility] Start: 04-08-2024 End: 04-08-2024 Patient encounter procedure Heather Davis MD Work Phone: Pain Management Comment on above: Encounter for long-t erm (current) use of medications (Primary Dx); Chronic, continuous use of opioids; Chronic pain syndrome; Other chronic pain; Neck pain, chronic; Current smoker; History of recent stressful life event Start: 03-30-2024 End: 04-01-2024 Telephone encounter Chloe Craig MD Work Phone: [employer] [facility] Comment on above: Medication refill (O xycodone) Start: 03-29-2024 End: 03-29-2024 ambulatory MEKA WEBB Facility:[facility] Start: 03-29-2024 End: 03-29-2024 Patient encounter procedure Meka Webb MD Work Phone: Rehab Medicine Comment on above: Thoracic myelopathy (Primary Dx); H/O laminectomy; Spasticity; Impairment of balance Start: 03-28-2024 End: 05-04-2024 Telephone encounter Chloe Craig MD Work Phone: [employer] [facility] Comment on above: Patient Question Start: 03-23-2024 End: 03-25-2024 ambulatory MELODIE MARINA Facility:[facility] Start: 03-21-2024 End: 05-04-2024 Refill Chloe Craig MD Work Phone: [employer] [facility] Comment on above: Patient Question (Ox ycodone refill) Start: 03-11-2024 End: 03-14-2024 Telephone encounter Chloe Craig MD Work Phone: [facility] [employer] [facility] Comment on above: Patient Question (Pa tient requesting refill on Oxycodone. Returned call to patient, and left message notifying her that Dr. Mackenzie sent refill to pharmacy. Jazlyn Bermudez LPN/) Clinical Chart Notes to DME Start: 03-08-2024 End: 03-08-2024 Office outpatient visit 15 minutes Chloe Craig MD Work Phone: [employer] [facility] Comment on above: Spinal stenosis, mul tiple sites in spine (Primary Dx) Start: 03-08-2024 End: 03-08-2024 ambulatory [facility] Facility:[id number] Start: 03-08-2024 End: 03-08-2024 Subsequent hospital visit by physician [facility] Comment on above: S/P lumbar laminecto my [Z98.890] Start: 03-04-2024 End: 03-07-2024 Telephone encounter Chleo Craig MD Work Phone: [employer] [facility] Comment on above: Returning Patient's Call (Notified patient that refill on Oxycodone was sent to [facility]. Jazlyn Bermudez, ADEL[place]/) Refill Request Start: 03-04-2024 End: 03-04-2024 ambulatory Bill Woods PA-C Work Phone: [facility] Comment on above: Multiple sclerosis ( HCC) (Primary Dx) Start: 03-04-2024 End: 03-04-2024 Telemedicine consultation with patient Bill Woods PA-C Work Phone: [facility] Start: 03-02-2024 End: 03-08-2024 Telephone encounter Chloe Craig MD Work Phone: [facility] Comment on above: Patient Question (John garcia is requesting a refill on Oxycodone, she has 4 tablets left. ) Start: 03-01-2024 End: 03-01-2024 ambulatory Melodie Marina [facility] Facility:[facility] Start: 02-26-2024 End: 02-26-2024 Patient encounter procedure Vaishnavi Soria MD Work Phone: Dermatology Comment on above: Prurigo nodularis (P rimary Dx); MRSA (methicillin resistant Staphylococcus aureus) carrier Start: 02-26-2024 End: 02-26-2024 ambulatory VAISHNAVI SORIA Facility:[facility] Start: 02-24-2024 End: 02-24-2024 ambulatory MELODIE MARINA Facility:[facility] Start: 02-24-2024 End: 02-24-2024 Patient encounter procedure Rosa Flores AMMONIUM NITRATE CRYSTALLIZEREvinPUBLIC RELATIONS WRITER Work Phone: Endocrinology Comment on above: Controlled type 2 di abetes mellitus without complication, 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) (Primary Dx) Start: 02-19-2024 End: 02-19-2024 Telephone encounter Bill Woods PA-C Work Phone: [facility] Start: 02-18-2024 End: 02-22-2024 Evaluation and management of inpatient CHLOE CRAIG Facility:[id number] Start: 02-18-2024 End: 02-18-2024 Office outpatient visit 15 minutes Chloe Craig MD Work Phone: [facility] [employer] [facility] Comment on above: Spinal stenosis, mul tiple sites in spine (Primary Dx); Wound infection after surgery Start: 02-18-2024 End: 02-18-2024 ambulatory CHLOE CRAIG Facility:[id number] Start: 02-17-2024 End: 02-17-2024 Telephone encounter Chloe Craig MD Work Phone: [facility] [employer] [facility] Comment on above: Patient Update Start: 02-11-2024 End: 02-11-2024 Refill Chloe Craig MD Work Phone: [facility] [employer] [facility] Comment on above: S/P lumbar laminecto my [Z98.890] Start: 02-11-2024 End: 02-11-2024 Office outpatient visit 15 minutes Chloe Craig MD Work Phone: [facility] [employer] [facility] Comment on above: Spinal stenosis, mul tiple sites in spine (Primary Dx) Start: 02-10-2024 End: 02-10-2024 Refill Bill Woods PA-C Work Phone: [facility] Comment on above: Refill Request Start: 02-09-2024 End: 02-22-2024 Telephone encounter Miguelangel Singh MD Work Phone: [facility] Comment on above: Orders Start: 02-05-2024 End: 02-08-2024 Telephone encounter Chloe Craig MD Work Phone: [facility] [employer] [facility] Comment on above: Orders (Oxycodone 5 mg Q 4hrs) Start: 02-02-2024 End: 02-02-2024 Telephone encounter Chloe Craig MD Work Phone: [facility] [employer] [facility] Comment on above: Patient Update Start: 01-27-2024 End: 01-28-2024 Telephone encounter Miguelangel Singh MD Work Phone: [facility] [employer] [facility] Comment on above: Refill Request (Henao ge in Oxycodone instructions) Start: 01-26-2024 End: 02-05-2024 Orders Only Chloe Craig MD Work Phone: [facility] [employer] [facility] Comment on above: S/P lumbar laminecto my (Primary Dx) Start: 01-25-2024 End: 02-01-2024 Telephone encounter [facility] Craig MD [facility]: [facility] Comment on above: Returning Patient's Call (Returned call to patient. Left message with direct phone number to call back. Jazlyn Bermudez LPN/) Patient Question (Ox ycodone-change in dose) Start: 01-20-2024 End: 01-22-2024 ambulatory TRISTAN [facility] CRAIG Facility:[id number] Start: 01-07-2024 End: 01-07-2024 Telephone encounter Chloe Craig MD Work Phone: [facility] Comment on above: Results (MRSA) Results (Notified pa tient of +MRSA results. Explained to patient that Dr. Mackenzie will tx her with prophylactic antibiotics. Patient voiced understanding. Jazlyn Bermudez LPN/) Start: 01-06-2024 End: 01-22-2024 Patient encounter status Rosa Flores AMMONIUM NITRATE 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 Phone: [facility] Work Phone: Start: 01-06-2024 Encounter for other preprocedural examination [facility] Start: 01-05-2024 End: 01-06-2024 Admission to same day surgery center Rosa Flores AMMONIUM NITRATE 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 Phone: Endocrinology Comment on above: Upcoming surgery Start: 01-05-2024 End: 01-05-2024 Telephone encounter Chloe Craig MD Work [facility]: [facility] Comment on above: Preparations For Milly vicente (Anti-coagulant instructions) Start: 01-05-2024 End: 01-05-2024 [facility] Work Phone: Pre [facility] Comment on above: Preop testing (Prima ry Dx); Spinal stenosis of thoracic region; Spinal stenosis, lumbar region, with neurogenic claudication; Intervertebral thoracic disc disorder with myelopathy, thoracic region; Chronic congestive heart failure, unspecified heart failure type (HCC); Chronic obstructive pulmonary disease, unspecified COPD type (HCC); Gastroesophageal reflux disease without esophagitis; Renal insufficiency; Multiple excoriations; Type 2 diabetes mellitus with other circulatory complication, with long-term current use of insulin (HCC) Start: 01-05-2024 End: 01-05-2024 Patient encounter status Pac 2 Work Phone: [facility] Work Phone: Start: 01-05-2024 End: 01-06-2024 ambulatory Rosa Flores APRN.CNP Work Phone: Endocrinology Start: 01-04-2024 End: 01-04-2024 ambulatory Melodie Marina [facility] Facility:[facility] Start: 12-30-2023 End: 12-30-2023 Telephone encounter Chloe Craig MD Work Phone: [employer] Comment on above: Preparations For Milly vicente (T10-T11 laminectomy, L3-4 laminectomy) Preparations For Milly vicente (Anticoagulants) Start: 12-29-2023 End: 12-29-2023 ambulatory MEKA WEBB Facility:[facility] Start: 12-29-2023 End: 12-29-2023 Patient encounter procedure Meka Webb MD Work Phone: Rehab Medicine Comment on above: 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); Spinal stenosis of lumbar region with neurogenic claudication; Spasticity Start: 12-24-2023 End: 12-24-2023 ambulatory Bill Woods PA-C Work Phone: [facility] Comment on above: Multiple sclerosis ( HCC) (Primary Dx) Start: 12-24-2023 End: 12-24-2023 Telemedicine consultation with patient Bill Woods NARESH Work Phone: [facility] Start: 12-17-2023 End: 12-17-2023 Office outpatient new 45 minutes Chloe Craig MD Work Phone: [employer] [facility] Comment on above: Spinal stenosis of t horacic region (Primary Dx); Spinal stenosis, lumbar region with neurogenic claudication; Intervertebral thoracic disc disorder with myelopathy, thoracic region Start: 12-17-2023 End: 12-17-2023 ambulatory CHLOE CRAIG Facility:[id number] Start: 12-08-2023 End: 12-08-2023 ambulatory [facility] Facility:[facility] Start: 12-08-2023 End: 12-08-2023 Patient encounter procedure Heahter Davis MD Work Phone: Pain Management Comment on above: MS (multiple scleros is) (HCC) (Primary Dx); Myofascial pain syndrome; Tobacco dependence; Neck pain; Lumbar pain; Myofascial pain syndrome of lumbar spine; Myofascial pain syndrome, cervical; Other chronic pain; Neck pain, chronic; Encounter for long-term (current) use of medications Start: 12-04-2023 End: 12-04-2023 ambulatory MELODIE ROWES[place]LE Facility:[facility] Start: 12-04-2023 End: 12-04-2023 Subsequent hospital visit by physician [facility] (I-Stat) Work Phone: Cat Scan Comment on above: Thoracic myelopathy [M47.14] Start: 12-02-2023 ambulatory [facility] Comment on above: Prescription Update Start: 12-02-2023 E-mail encounter fro m caregiver [facility] Ke[facility] Start: 11-30-2023 Telephone encounter Chloe Craig MD Work Phone: [facility] Comment on above: Appointment Start: 11-27-2023 End: 11-27-2023 Office outpatient new 45 minutes Jarred Duarte MD Work Phone: [facility] Comment on above: Spinal stenosis of l umbar region with neurogenic claudication (Primary Dx); Thoracic myelopathy Start: 11-27-2023 End: 11-27-2023 ambulatory MELODIE MARINA Facility:[facility] Start: 11-24-2023 Refill Meka Webb MD Work Phone: Rehab Medicine Comment on above: Refill Request Start: 11-19-2023 End: 11-19-2023 ambulatory VAISHNAVI SORIA Facility:[facility] Start: 11-19-2023 End: 11-19-2023 Patient encounter procedure Vaishnavi Soria MD Work Phone: Dermatology Comment on above: Prurigo nodularis (P rimary Dx); Inflamed seborrheic keratosis Start: 11-10-2023 End: 11-10-2023 Patient encounter procedure [facility] Comment on above: Type 2 diabetes nadia itus with other specified complication, without long-term current use of insulin (HCC); 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); Malaise and fatigue Start: 11-10-2023 End: 11-10-2023 Patient encounter procedure Bill Woods PA-C Work Phone: [facility] Comment on above: Immunosuppression du e to drug therapy (HCC) (HCC) (Primary Dx); Malaise and fatigue; Multiple sclerosis (HCC) Start: 11-03-2023 End: 11-03-2023 Patient encounter procedure Kourtney Purdy OD Work Phone: [facility] Comment on above: MS (multiple scleros is) (HCC) (Primary Dx); Optic nerve atrophy, bilateral; Vitreous degeneration of both eyes; Pseudophakia; Refractive error; Presbyopia; Nonexudative age-related macular degeneration, bilateral, early dry stage Start: 10-27-2023 ambulatory Meka Webb MD Work Phone: Rehab Medicine Comment on above: Meds Start: 10-14-2023 ambulatory Meka Webb MD Work Phone: Rehab Medicine Comment on above: Concern Start: 10-14-2023 End: 10-14-2023 Patient encounter procedure Vaishnavi Soria MD Work Phone: Dermatology Comment on above: Irritant dermatitis (Primary Dx); Prurigo nodularis; Inflamed seborrheic keratosis Start: 10-09-2023 Telephone encounter Rosa martell AMMONIUM NITRATE CRYSTALLIZEREvinPUBLIC RELATIONS WRITER Work Phone: Endocrinology Comment on above: eye exam records Start: 10-07-2023 Refill Rosa Flores APRN.PUBLIC RELATIONS WRITER Work Phone: Endocrinology Comment on above: Refill Request Start: 09-24-2023 End: 09-24-2023 Patient encounter procedure [facility] Comment on above: Immunosuppression du e to drug therapy (HCC) (HCC); Malaise and fatigue; Multiple sclerosis (HCC) Immunosuppression du e to drug therapy (HCC) (HCC) (Primary Dx); Malaise and fatigue; Multiple sclerosis (HCC) Start: 09-16-2023 ambulatory Meka Webb MD Work Phone: Rehab Medicine Comment on above: Mri Start: 09-16-2023 End: 09-16-2023 Subsequent hospital visit by physician Mri [facility] (I-Stat/1.5t) Work Phone: Radiology Comment on above: Thoracic myelopathy [M47.14] Start: 09-15-2023 End: 09-15-2023 Patient encounter procedure Meka Webb MD Work Phone: Rehab Medicine Comment on above: Thoracic myelopathy (Primary Dx); History of multiple sclerosis (HCC); Spinal stenosis of lumbar region with neurogenic claudication; Lumbar foraminal stenosis Myofascial pain (Janeth gagan Dx); Other chronic pain; Neck pain, chronic; Myofascial pain syndrome of lumbar spine; MS (multiple sclerosis) (HCC); Myofascial pain syndrome; Elevated hemoglobin A1c; Current smoker Start: 09-09-2023 Telephone encounter Rosa martell AMMONIUM NITRATE 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 Phone: Endocrinology Comment on above: DWO Form Start: 09-07-2023 Telephone encounter Bill jo PA-C Work Phone: [facility] Comment on above: Patient Question (John garcia has MS related questions) Start: 08-28-2023 Refill Jake Kinsey MD, PhD Work Phone: [facility] Comment on above: Refill Request Patient Update (Pt c alling to follow up with her Demian with Coordinator) Start: 08-27-2023 ambulatory Rosa C Cioce AMMONIUM NITRATE 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 Phone: Endocrinology Comment on above: Janay three Meter Start: 08-24-2023 Specialty Pharmacy [facility] Comment on above: SPP Neurology - Medi cation Refill (Kesimpta) Start: 08-19-2023 Telephone encounter Rosa martell AMMONIUM NITRATE 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 Phone: Endocrinology Comment on above: Orders ([facility] ord er) Start: 08-19-2023 End: 08-19-2023 Patient encounter procedure Rosa Flores AMMONIUM NITRATE 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 Phone: Endocrinology Comment on above: Type 2 diabetes nadia itus with other specified complication, without long-term current use of insulin (HCC) (Primary Dx) Start: 08-12-2023 ambulatory Bill Arrington Work Phone: [facility] Comment on above: Slurred speech Start: 08-11-2023 Telephone encounter Bill jo PA-C Work Phone: [facility] Comment on above: Symptoms (Slurred sp eech) Start: 08-11-2023 End: 08-11-2023 Patient encounter procedure Haether Davis MD Work Phone: Pain Management Comment on above: MS (multiple scleros is) (HCC) (Primary Dx); Paroxysmal A-fib (HCC); Myofascial pain syndrome; Myofascial pain syndrome of lumbar spine; Myofascial pain syndrome, cervical; Myofascial pain; Current smoker; Lumbar back pain Start: 08-06-2023 End: 08-06-2023 Patient encounter procedure Bill Woods PA-C Work Phone: [facility] Comment on above: Multiple sclerosis ( HCC) (Primary Dx) Start: 07-31-2023 Telephone encounter Bill jo PA-C Work Phone: [facility] Comment on above: Medication Problem; Symptoms Start: 07-27-2023 End: 07-27-2023 Subsequent hospital visit by physician Mri [facility] (I-Stat/1.5t) Work Phone: Radiology Comment on above: Chronic midline low back pain without sciatica [M54.50, G89.29] Start: 07-22-2023 Specialty Pharmacy [facility] Comment on above: SPP Neurology - Medi cation Refill (Kesimpta) Start: 07-17-2023 Refill Jake Kinsey MD, PhD Work Phone: [facility] Comment on above: Refill Request Start: 07-09-2023 Refill Meka Webb MD Work Phone: Rehab Medicine Comment on above: Refill Request Refills Start: 06-24-2023 End: 06-24-2023 Patient encounter procedure Bill Woods PA-C Work Phone: Neurology Comment on above: Multiple sclerosis ( HCC) (Primary Dx) Start: 06-16-2023 End: 06-16-2023 Patient encounter procedure Heather Davis MD Work Phone: Pain Management Comment on above: Myofascial pain synd rosio of lumbar spine (Primary Dx); Other chronic pain; MS (multiple sclerosis) (HCC); Type 2 diabetes mellitus with other specified complication, without long-term current use of insulin (HCC); Myofascial pain; Lumbar pain; Abnormal posture; Neck pain, chronic; Thoracic spine pain; Other kyphosis of thoracic region; BMI 30.0-30.9,adult Start: 06-12-2023 Telephone encounter Bill jo PA-C Work Phone: [facility] Comment on above: Patient Question Start: 04-03-2023 End: 04-03-2023 Patient encounter procedure Heather Davis MD Work Phone: Pain Management Comment on above: Myofascial pain (Janeth gagan Dx); Current smoker; Other kyphosis of thoracic region; Abnormal posture; Abnormal increased muscle tightness; Tobacco dependence; Anxiety and depression Start: 03-18-2023 Specialty Pharmacy [facility] Comment on above: SPP Neurology - Medi cation Refill (Kesimpta ) Start: 03-12-2023 ambulatory Rosa Cassandra Flores AMMONIUM NITRATE 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 Phone: Endocrinology Comment on above: Medication Start: 03-12-2023 E-mail encounter juan pablo m caregiver Rosa Flores AMMONIUM NITRATE 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 Phone: [facility] Start: 03-12-2023 Telephone encounter Rosa martell AMMONIUM NITRATE 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 Phone: Endocrinology Comment on above: Ozempic Denial Medication Problem Start: 03-11-2023 End: 03-11-2023 Patient encounter procedure Heather Davis MD Work Phone: Pain Management Comment on above: Myofascial pain (Janeth ggaan Dx); Myofascial neck pain; Tight unbalanced muscles; Other chronic pain; History of fusion of cervical spine; MS (multiple sclerosis) (HCC); Current smoker; Chronic anticoagulation; BMI 26.0-26.9,adult Start: 03-10-2023 ambulatory Bill Arrington Work Phone: [facility] Comment on above: New med Start: 03-04-2023 Refill Bill Arrington Work Phone: [facility] Comment on above: Refill Request Refill Request (Pt i s requesting an early refill on her Modafinil to be picked up from pharmacy on 03/10/23 leaving state) Provigil Patient Request (For Janay 3) Start: 03-02-2023 Telephone encounter Bill jo PA-C Work Phone: [facility] Comment on above: Return Call Request Patient Update Start: 02-23-2023 ambulatory Rosa Flores AMMONIUM NITRATE 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 Phone: Endocrinology Comment on above: Ozempic Start: 02-18-2023 End: 02-18-2023 Patient encounter procedure Vaishnavi Soria MD Work Phone: Dermatology Comment on above: Folliculitis (Primar y Dx) Start: 02-16-2023 ambulatory Bill Arrington Work Phone: [facility] Comment on above: Skin lesions Start: 02-13-2023 Specialty Pharmacy [facility] Comment on above: SPP Neurology - Medi cation Refill (Kesimpta) Start: 02-11-2023 End: 02-11-2023 Patient encounter procedure Rosablake Flores APRN.PUBLIC RELATIONS WRITER Work Phone: Endocrinology Comment on above: Controlled type 2 di abetes mellitus without complication, unspecified whether prison insulin use (HCC) (Primary Dx) Start: 02-04-2023 Telephone encounter Bill jo PA-C Work Phone: [facility] Comment on above: Referral Information (Outcome of NMSS Referral) Start: 02-03-2023 Telephone encounter Bill Collin ng PA-C Work Phone: [facility] Comment on above: Patient Update Start: 01-30-2023 ambulatory Meka Webb MD Work Phone: [address] Start: 01-30-2023 Follow-up encounter Meka ruiz MD Work Phone: Spine Medicine Comment on above: Follow up appointmen t Start: 01-29-2023 End: 01-29-2023 Patient encounter procedure Bill Woods PA-C Work Phone: [facility] Comment on above: Multiple sclerosis ( HCC) (Primary Dx) Start: 01-28-2023 Telephone encounter Bill Polanco sandro PA-C Work Phone: [facility] Comment on above: Patient Question Start: 01-26-2023 End: 01-26-2023 Patient encounter procedure Fawad Simmons APRN.PUBLIC RELATIONS WRITER Work Phone: Neurology Comment on above: 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) Start: 01-23-2023 Refill Heather Davis MD Work Phone: Pain Management Comment on above: Refill Request Start: 01-23-2023 End: 01-23-2023 Patient encounter procedure Vaishnavi Soria MD Work Phone: Dermatology Comment on above: Folliculitis (Primar y Dx) Start: 01-20-2023 Telephone encounter Cameron Sher MD Work Phone: Neurology Comment on above: Appointment Start: 01-19-2023 Telephone encounter Cameron Sher MD Work Phone: Neurology Comment on above: Appointment Start: 01-19-2023 End: 01-19-2023 Patient encounter procedure Cameron Sher MD Work Phone: Neurology Comment on above: Obstructive sleep ap payton (Primary Dx); Insomnia, unspecified type; RLS (restless legs syndrome); Hypersomnia due to medical condition Start: 01-16-2023 Telephone encounter Neurology Provid er Neurology Comment on above: Patient Update Start: 01-15-2023 End: 01-15-2023 Subsequent hospital visit by physician Isaias Aguirre Work Phone: Radiology Comment on above: S/P lumbar fusion [Z 98.1] Start: 01-15-2023 End: 01-15-2023 Patient encounter procedure Meka Webb MD Work Phone: Spine Medicine Comment on above: Postural kyphosis of thoracic region (Primary Dx); 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; Cervical vertebral fusion; S/P lumbar fusion Start: 01-14-2023 End: 01-15-2023 ambulatory Efren Keen [facility] Start: 01-14-2023 End: 01-14-2023 Patient encounter procedure Bill Woods PA-C Work Phone: Neurology Comment on above: Malaise and fatigue (Primary Dx); Lesion of skin of face; Skin sore; Multiple sclerosis (HCC) SPP Neurology - Medi cation Refill (Kesimpta) Start: 01-13-2023 Telephone encounter Bill jo PA-C Work Phone: [facility] Comment on above: Returning Patient's Call Start: 01-07-2023 End: 01-07-2023 Subsequent hospital visit by physician Suraj Ann(Lg Bore/1.5t) Work Phone: Radiology Comment on above: Multiple sclerosis ( HCC) [G35] Start: 01-06-2023 ambulatory Bill EldridgeC Work Phone: Neurology Comment on above: L Losartan Start: 12-22-2022 Telephone encounter Jake adame MD, PhD Work Phone: [facility] Start: 12-19-2022 Specialty Pharmacy [facility] Comment on above: SPP Neurology - Medi cation Refill (Kesimpta) Symptoms Start: 2022 Telephone encounter Bill LOPEZ-C Work Phone: [facility] Comment on above: Medication Problem Start: 12-11-2022 Telephone encounter Neurology Provid er Neurology Start: 12-10-2022 ambulatory Rosa Flores AMMONIUM NITRATE 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 Phone: Endocrinology Comment on above: Ozempic Start: 12-10-2022 Telephone encounter Jake adame MD, PhD Work Phone: [facility] Comment on above: Appointment Start: 12-10-2022 End: 12-10-2022 Patient encounter procedure Heather Davis MD Work Phone: Pain Management Comment on above: Other chronic pain ( Primary Dx); MS (multiple sclerosis) (HCC); Paroxysmal A-fib (HCC); Tobacco dependence; BMI 28.0-28.9,adult; Personal history of spine surgery; H/O insulin dependent diabetes mellitus Start: 12-04-2022 Chart abstracting Bill Woods PA-C Work Phone: [facility] Comment on above: Orders (Speech Thera py) Start: 12-03-2022 End: 12-03-2022 Patient encounter procedure Bill LOPEZ-C Work Phone: Neurology Comment on above: Sleep apnea, unspeci fied type (Primary Dx); Multiple sclerosis (HCC); Dysarthria Start: 11-25-2022 ambulatory Bill Corbin A-C Work Phone: Neurology Comment on above: Eye scan Start: 11-24-2022 ambulatory [facility] Start: 11-24-2022 Telephone encounter Jake adame MD, PhD Work Phone: [facility] Comment on above: Symptoms SPP Neurology - Medi cation Refill (Kesimpta) Start: 11-21-2022 Telephone encounter Bill Collin LOPEZ-C Work Phone: [facility] Comment on above: Orders Start: 11-21-2022 End: 11-21-2022 Patient encounter procedure Oct Exam Tech [facility] Work Phone: [facility] Comment on above: Multiple sclerosis ( HCC) (Primary Dx) Start: 11-20-2022 Telephone encounter Bill Polanco sandro LOPEZ-C Work Phone: [facility] Comment on above: Symptoms Start: 11-04-2022 End: 11-04-2022 Patient encounter procedure Heather Davis MD Work Phone: Pain Management Comment on above: Chronic pain of left knee (Primary Dx); History of torn meniscus of left knee; History of medial meniscus repair of left knee; Congenital retroversion of both femurs; MS (multiple sclerosis) (HCC); Current smoker; 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 Start: 10-24-2022 ambulatory Bill Arrington Work Phone: Neurology Comment on above: Spine doctor Start: 10-16-2022 ambulatory Rosa C Cioce AMMONIUM NITRATE 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 Phone: Endocrinology Comment on above: Test results Start: 10-16-2022 Patient encounter procedure Bill Woods PA-C Work Phone: Neurology Comment on above: Referral to pain man agement Start: 10-13-2022 Telephone encounter Rosa C C ioce AMMONIUM NITRATE 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 Phone: Endocrinology Comment on above: [facility] ([facility]) Start: 10-08-2022 ambulatory Rosa C Cioce AMMONIUM NITRATE 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 Phone: Endocrinology Comment on above: Glucose Start: 09-23-2022 Specialty Pharmacy [facility] Comment on above: SPP Neurology - Medi cation Refill (Kesimpta) Start: 09-03-2022 End: 09-03-2022 Patient encounter procedure Bill Woods PA-C Work Phone: Neurology Comment on above: Multiple sclerosis ( HCC) (Primary Dx); DDD (degenerative disc disease), thoracic Start: 08-27-2022 ambulatory Rosa Cassandra Cioce AMMONIUM NITRATE 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 Phone: Endocrinology Comment on above: Osemptic Start: 08-27-2022 Telephone encounter Bill jo PA-C Work Phone: [facility] Comment on above: Results Start: 08-26-2022 ambulatory Bill Arrington Work Phone: Neurology Comment on above: Not feeling good Start: 08-22-2022 End: 08-22-2022 Subsequent hospital visit by physician Mri [facility] (I-Stat/1.5t) Work Phone: Radiology Comment on above: Multiple sclerosis ( HCC) [G35] Start: 08-06-2022 ambulatory Rosa C Cioce AMMONIUM NITRATE 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 Phone: Endocrinology Comment on above: blood sugars, or babar betic medicine Start: 08-06-2022 E-mail encounter fro m caregiver Rosa Mattaoce AMMONIUM NITRATE 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 Phone: [facility] Start: 08-06-2022 End: 08-06-2022 Patient encounter procedure Rosa Mattaoce AMMONIUM NITRATE 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 Phone: Endocrinology Comment on above: Type II diabetes serafin litus with manifestations (HCC) (Primary Dx); Type 2 diabetes mellitus with other specified complication, without long-term current use of insulin (HCC) Start: 08-04-2022 ambulatory Bill Arrington Work Phone: Neurology Comment on above: Lab results Start: 07-30-2022 End: 07-30-2022 Patient encounter procedure Bill Woods PA-C Work Phone: Neurology Comment on above: Multiple sclerosis ( HCC) (Primary Dx) Start: 04-04-2023 Telephone encounter Bill jo PA-C Work Phone: [facility] Comment on above: Results Start: 07-19-2022 ambulatory Bill Arrington Work Phone: [facility] Comment on above: Me Flare up Start: 07-15-2022 Specialty Pharmacy [facility] Comment on above: SPP Neurology - Medi cation Refill (Kesimpta) Start: 06-27-2022 End: 06-27-2022 Subsequent hospital visit by physician Mri [facility] (1.5t) Work Phone: Radiology Comment on above: Canceled (Pt cx: Res cheduled) Start: 05-23-2022 Chart abstracting Bill Woods PA-C Work Phone: [facility] Comment on above: Medication Preauthor ization (Modafinil 200 mg.) Start: 04-02-2022 End: 04-02-2022 Emergency department patient visit Dr. Tom Sherman Work Phone: [facility] Start: 04-01-2022 End: 04-01-[address] Tom Sherman Work Phone: [facility] Start: 03-05-2022 Specialty Pharmacy Hugo Porter [facility] Comment on above: SPP Neurology - Medi cation Refill (Kesimpta) Start: 02-11-2022 End: 02-11-2022 Patient encounter procedure Bill Woods PA-C Work Phone: [facility] Comment on above: Multiple sclerosis ( HCC) (Primary Dx) Start: 02-07-2022 End: 02-07-2022 Emergency department patient visit Dr. Tom Sherman Work Phone: [facility] Start: 01-14-2022 End: 01-14-[address] Tom Sherman Work Phone: [facility] Start: 01-07-2022 End: 01-07-[address] Tom Sherman Work Phone: [facility] Internal [facility] Start: 12-24-2021 End: 12-24-[address] Tom Sherman Work Phone: [facility] Start: 11-20-2021 Non-patient / Non-visit Dr. Shakir Sherman Work Phone: [facility] Start: 11-19-2021 Non-patient / Non-visit Dr. Shakir Sherman Work Phone: [facility] Start: 11-18-2021 Non-patient / Non-visit Dr. Shakir Sherman Work Phone: [facility] Start: 11-17-2021 Non-patient / Non-visit Dr. Shakir Sherman Work Phone: [facility] Start: 11-16-2021 End: 11-20-2021 Non-patient / Non-visit Dr. Tom Sherman Work Phone: [facility] Start: 11-16-2021 End: 11-20-2021 Evaluation and management of inpatient Dr. Tom Sherman Work Phone: [facility] Start: 11-08-2021 ambulatory Lisa Taylor [facility] Comment on above: SPP Neurology - Disc ontinuation Of Therapy (Aubagio) Start: 11-06-2021 Specialty Pharmacy Lisa [facility] Comment on above: SPP Neurology - Medi cation Refill (Kesimpta) Start: 11-05-2021 End: 11-05-[address] Tom Sherman Work Phone: [facility] Start: 10-10-2021 End: 10-10-[address] Tom Sherman Work Phone: [facility] Start: 10-07-2021 End: 10-07-2021 [facility] Start: 10-03-2021 Telephone encounter Bill jo PA-C Work Phone: [facility] Comment on above: [facility] FDO Start: 09-20-2021 End: 09-20-[address] Tom Sherman Work Phone: [facility] Internal [facility] Start: 09-11-2021 Telephone encounter Bill jo PA-C Work Phone: [facility] Comment on above: Medication Question Start: 08-21-2021 End: 08-21-2021 Emergency department patient [facility] Sherman [facility] Start: 08-21-2021 End: 08-21-2021 Dr. [facility] Sherman [facility] Start: 08-09-2021 Specialty Pharmacy Efren [facility] Comment on above: SPP Neurology - Medi cation Refill (Aubagio) Start: 08-08-2021 End: 08-08-[address] Tom Sherman Work Phone: [facility] Medicine Start: 08-08-2021 End: 08-08-2021 Dr. Tom Sherman Work Phone: [facility] Medicine Start: 07-31-2021 Non-patient / Non-visit Dr. Shakir Sherman Work Phone: [facility] Start: 07-31-2021 End: 07-31-[address] Tom Sherman Work Phone: [facility]Cardiovas[facility] Services Start: 07-31-2021 End: 07-31-2021 Dr. Tom Sherman Work Phone: [facility] Start: 07-30-2021 End: 07-30-[address] Tom Sherman Work Phone: [facility]-Sleep Lab Start: 07-30-2021 End: 07-30-2021 Dr. Tom Sherman Work Phone: [facility]Sleep [facility] Start: 07-03-2021 End: 07-03-[address] [facility] Start: 07-03-2021 End: 07-03-2021 Dr. [facility] Sherman [facility] Start: 06-25-2021 End: 06-25-[address] [facility] Sherman [facility] Start: 06-25-2021 End: 06-25-2021 Dr. Tom Sherman [facility] Start: 06-22-2021 End: 06-22-2021 Emergency department patient visit Dr. Tom Sherman Work Phone: [facility]-Emergency Department Start: 06-22-2021 End: 06-22-2021 Dr. Tom Sherman Work Phone: [facility]-Emergency Department Start: 06-15-2021 End: 06-15-2021 Emergency department patient visit VERITO TAM MD [facility] Start: 05-16-2021 End: 05-16-2021 Dr. Tom Sherman Work Phone: [facility]Emergency Department Start: 05-11-2021 End: 05-11-2021 Dr. Tom Sherman Work Phone: [facility]-Emergency Department Start: 05-08-2021 Dr. Tom Sherman Work Phone: [facility] Start: 05-08-2021 Dr. Tom Sherman Work Phone: [facility] Start: 05-07-2021 End: 05-08-2021 Dr. Tom Sherman Work Phone: [facility]-Progressive Care Unit Start: 04-24-2021 End: 04-24-2021 Dr. Tom Sherman Work Phone: [facility]-Emergency Department Start: 04-19-2021 End: 04-19-2021 Dr. Tom Sherman Work Phone: [facility]-Emergency Department Start: 04-10-2021 End: 04-10-2021 Dr. Tom Sherman Work Phone: [facility] Start: 06-04-2020 End: 06-04-2020 Orders Only Angela Fatuma Schwarz Work Phone: [facility] Start: 01-31-2020 End: 01-31-2020 Patient encounter procedure CHRISTA DPM [facility] Start: 06-02-2018 End: 06-02-2018 Emergency department patient visit TJ MEDRANO Facility:[facility] Start: 01-19-2018 End: 01-21-2018 Patient encounter Unknown PCP Facility:UNKNOWN Start: 12-19-2017 End: 12-31-2017 Evaluation and management of inpatient Svetlana Mas Facility:[facility] Start: 12-02-2017 End: 12-10-2017 Evaluation and management of inpatient Yeison Pike Facility:[facility] Start: 08-09-2017 Patient encounter procedure Anjana Welch Facility:[facility] Start: 07-27-2017 End: 07-27-2017 Emergency department patient visit Erik Hemphill Facility:[facility] Start: 07-26-2017 End: 07-26-2017 Ambulatory Eliseo Joyce Work Phone: [facility] Start: 07-23-2017 Patient encounter procedure Anjana Welch Facility:[facility] Start: 07-23-2017 End: 07-23-2017 Ambulatory Anjana Welch Work Phone: [facility] Start: 07-14-2017 End: 07-14-2017 Ambulatory Anjana Welch Work Phone: [facility] Start: 07-03-2017 End: 07-10-2017 Evaluation and management of inpatient Svetlana JimenezEvin Mas Facility:[facility] Start: 05-26-2017 Ambulatory Enid Kirk Facilit y:[facility] Start: 05-01-2017 Ambulatory Dayne Tenorioo Facilit y:[facility] Start: 03-31-2017 Ambulatory Dayne L Dari Facilit y:[facility] Start: 12-30-2016 Ambulatory Enid Reagan Facilit y:[facility] Procedures Date Procedure Procedure Detail Performing Clinician Start: 10-12-2024 CRYOTHERAPY SKIN LESION Vaishnavi Soria MD Work Phone: Start: 10-10-2024 End: 10-10-2024 Computerized ophthalmic imaging retina Keith Squires OD Work Phone: Start: 08-12-2024 Mri brain brain stem w/o contrast material Bill Woods PA-C Work Phone: Start: 05-04-2024 End: 05-04-2024 Computerized ophthalmic imaging retina Kourtney Purdy OD Work Phone: Start: 04-08-2024 Drug tst prsmv instr mnt chem analyzers pr date Heather Davis MD Work Phone: Start: 01-05-2024 Antibody screen CHLOE MACKENZIE Comment on above: Order Comment: Speci men Type: BLOOD SPECIMENOrdering Facility: [facility] Address: [facility] [place] [address] Performed By: #### T [id number] ####[facility] BLOOD BANKCLIA [id number] [place] [address] [place] Start: 01-05-2024 Antibody screen rbc each serum technique Chloe Craig MD Work Phone: Start: 01-05-2024 Basic metabolic pane l calcium total Chloe Craig MD Work Phone: Start: 11-19-2023 CRYOTHERAPY SKIN LESION Vaishnavi Soria MD Work Phone: Start: 10-14-2023 CRYOTHERAPY SKIN LESION Vaishnavi Soria MD Work Phone: Start: 09-24-2023 Blood count complete auto&auto difrntl wbc Bill Woods PA-C Work Phone: Start: 09-16-2023 Mri spinal canal tho racic w/o & w/contr matrl Meka Webb MD Work Phone: Start: 07-27-2023 Mri brain brain stem w/o contrast material Bill Woods PA-C Work Phone: Start: 07-27-2023 BRAIN & CERVICAL SPI NE MRI DISCRETE DATA [facility] Provider Start: 01-15-2023 Radex spine cervical 4 or 5 views Meka Webb MD Work Phone: Start: 08-22-2022 BRAIN & CERVICAL SPI NE MRI DISCRETE DATA [facility] Provider Start: 08-22-2022 Mri brain brain stem w/o w/contrast material Bill Woods PA-C Work Phone: Start: 08-06-2022 Hemoglobin A1c/Hemoglobin.total in Blood Rosa C Cioce AMMONIUM NITRATE 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 Phone: Start: 04-02-2022 Plain chest X-ray Dr. Reggie Sherman Work Phone: Start: 02-07-2022 Plain chest X-ray Dr. Reggie Sherman Work Phone: Start: 02-07-2022 CT of head without contrast Dr. Tom Sherman Work Phone: Start: 11-16-2021 Plain chest X-ray Dr. Reggie Sherman Work Phone: Start: 08-21-2021 CT of abdomen and pe lvis without contrast Dr. Tom Sherman Work Phone: Start: 06-22-2021 Plain chest X-ray Dr. Reggie Sherman Work Phone: Start: 06-22-2021 CT of head without contrast Dr. Tom Sherman Work Phone: Start: 05-16-[address] Simeon Sherman Work Phone: Start: 05-16-2021 Plain chest X-ray Dr. Reggie Sherman Work Phone: Start: 05-11-2021 Plain chest X-ray Dr. Reggie Sherman Work Phone: Start: 05-08-2021 Dr. Rufina Sherman Work Phone: Start: 05-07-2021 Plain chest X-ray Dr. Reggie Sherman Work Phone: Start: 04-24-2021 CT of head without contrast Dr. Tom Sherman Work Phone: Start: 04-19-2021 Plain chest X-ray Dr. Reggie Sherman Work Phone: Start: 01-20-2018 Electrocardiogram Unkno wn PCP Start: 01-19-2018 End: 01-19-2018 Electrocardiogram Unknown PCP Start: 04-08-2016 History of placement of stent for coronary artery disease Dr. Tom Sherman Work Phone: Start: 02-28-2015 Colonoscopy Efren Keen RPh Bacteria identified in Blood by Culture Dr. Tom Sherman Work Phone: Clostridium difficil e detection Dr. Tom Sherman Work Phone: History of operative procedure on knee History of medial meniscus repair of left knee Heather Davis MD Work Phone: Urine culture Dr. Tom Sherman Work Phone: Viral antigen assay Dr. Ankit Sherman Work Phone: Plan of Treatment Date Care Activity Detail Author Start: 10-10-2025 Glaucoma screening Dilated Retinal Exam [facility] Start: 09-21-2025 BP Controlled (<130/80) BP Controlled (<130/80) [facility] Start: 08-05-2025 BP Controlled (<130/80) BP Controlled (<130/80) [facility] Start: 07-29-2025 Hepatitis B screening Urine Albumin:Creatinine Ratio [facility] Start: 07-29-2025 Hepatitis B surface antibody level LDL Cholesterol [facility] Start: 05-12-2025 End: 05-12-2025 Patient encounter procedure 05/12/2025 10:30 AM EST Office Visit [facility] [address] [place] [address] Keith Squires, OD [address] [place] [address] 7 mth f/u for complete eye exam with 30-2, nerve/ mac OCT(30 min) Ophthalmology Comment on above: 7 mth f/u for complete eye exam with 30- 2, nerve/ mac OCT(30 min) Start: 05-09-2025 End: 05-09-2025 Patient encounter procedure 05/09/2025 10:00 AM EST Office Visit [facility] [address] [place] [address] Kourtney Purdy, OD [address] [place] [address] Return in about 1 year (around 05/04/2025) for comprehensive exam. Ophthalmology Comment on above: Return in about 1 year (around 05/04/2025) for comprehensive exam. Start: 05-04-2025 Glaucoma screening Dilated Retinal Exam [facility] Start: 04-08-2025 BP Controlled (<130/80) BP Controlled (<130/80) [facility] Start: 03-29-2025 BP Controlled (<130/80) BP Controlled (<130/80) [facility] Start: 03-29-2025 End: 03-29-2025 Patient encounter procedure 03/29/2025 9:15 AM EST Office Visit Endocrinology [address] [place] [address] Rosa Flores APRN.PUBLIC RELATIONS WRITER [address] [place] [address] 6 MO OV Endocrinology Comment on above: 6 MO OV Start: 03-08-2025 BP Controlled (<130/80) BP Controlled (<130/80) [facility] Start: 02-23-2025 BP Controlled (<130/80) BP Controlled (<130/80) [facility] Start: 01-28-2025 Hemoglobin A1c measurement HbA1C [facility] Start: 01-04-2025 BP Controlled (<130/80) BP Controlled (<130/80) [facility] Start: 12-28-2024 BP Controlled (<130/80) BP Controlled (<130/80) [facility] Start: 12-26-2024 Influenza vaccination [facility] Start: 12-23-2024 End: 12-23-2024 Patient encounter procedure 12/23/2024 4:30 PM EDT Office Visit Pain Management [address] [place] [address] Kellee Zapata PA-C [address] [place] [address] CONSULT TO PAIN MGT Pain Management Comment on above: CONSULT TO PAIN MGT Start: 12-16-2024 BP Controlled (<130/80) BP Controlled (<130/80) [facility] Start: 12-15-2024 End: 12-15-2024 Admission to same day surgery center 12/15/2024 8:52 AM EDT - 12/15/2024 9:41 AM EDT Surgery Pain Management [address] [place] [address] Heather Davis MD [address] [address] BLOCK SACROILIAC WITH C-ARM Pain Management Comment on above: BLOCK SACROILIAC WITH C-ARM Start: 12-15-2024 End: 12-15-2024 Inject si joint arthrgrphy&/anes/steroi d w/jany BLOCK SACROILIAC WITH C-ARM Chronic right sacroiliac joint pain Sacroiliitis 12/15/2024 8:52 AM EDT [facility] Start: 12-15-2024 Subsequent hospital visit by physician 12/15/2024 8:52 AM EDT Hospital Encounter Pain Management [address] [place] [address] Heather Davis MD [address] [id number] Chronic right sacroiliac joint pain [M53.3, G89.29], Sacroiliitis [M46.1] Pain Management Comment on above: Chronic right sacroiliac joint pain [M53 .3, G89.29], Sacroiliitis [M46.1] Start: 12-14-2024 End: 12-14-2024 Patient encounter procedure 12/14/2024 1:45 PM EDT Office Visit Dermatology [address] [place] [address] [place] [address] Vaishnavi Soria MD [address] [place] [address] [place] [address] 2 months (around 2024) for follow up. Dermatology Comment on above: 2 months (around 2024) for follow u p. Start: 12-07-2024 BP Controlled (<130/80) BP Controlled (<130/80) [facility] Start: 11-23-2024 End: 11-23-2024 Patient encounter procedure Neuropyschology Comment on above: Multiple sclerosis (HCC) [G35] Start: 11-16-2024 End: 11-16-2024 Follow-up encounter 11/16/2024 2:30 PM EDT [facility] [address] [place], [place] [id number] Bill Woods PA-C [address] [place] [address] MS follow up Neurology Comment on above: MS follow up Start: 11-09-2024 BP Controlled (<130/80) BP Controlled (<130/80) [facility] Start: 11-09-2024 Hepatitis B surface antibody level LDL Cholesterol [facility] Start: 11-02-2024 Glaucoma screening Dilated Retinal Exam [facility] Start: 10-12-2024 End: 10-12-2024 Patient encounter procedure 10/12/2024 1:30 PM EDT Office Visit Dermatology [address] [place], [place] [id number] Vaishnavi Soria MD [address] [place] [address] [address] [place], [place] [id number] Return in about 6 weeks (around 10/10/2024) Dermatology Comment on above: Return in about 6 weeks (around ) Start: 10-11-2024 End: 10-11-2024 ambulatory 10/11/2024 8:00 AM EDT [facility] [address] [address] Bill Woods PA-C [address] [place], [place] [id number] Trouble with vision [facility] Comment on above: Trouble with vision Start: 10-10-2024 End: 10-10-2024 Patient encounter procedure 10/10/2024 3:00 PM EDT Office Visit [facility] Ophthalmology [address] [place] [address] Keith Squires, OD [address] [place] [address] change in vision past 2 days(DR. 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 Purdy pt-) has dx optic nerve atrophy Wants to be seen locally Start: 09-30-2024 Glaucoma screening Dilated Retinal Exam [facility] Start: 09-21-2024 End: 09-21-2024 Patient encounter procedure 09/21/2024 7:15 AM EDT Office Visit Endocrinology [address] [place] [address] Rosa Flores, AMMONIUM NITRATE CRYSTALLIZER.PUBLIC RELATIONS WRITER [address] [place] [address] New diagnosis - Pancreatitis Endocrinology Comment on above: New diagnosis - Pancreatitis Start: 09-14-2024 BP Controlled (<130/80) BP Controlled (<130/80) [facility] Start: 09-01-2024 End: 09-01-2024 Admission to same day surgery center 09/01/2024 2:25 PM EDT - 09/01/2024 3:09 PM EDT Surgery Pain Management [address] [place] [address] Heather Davis MD [address] [facility] [address] [place] [address] BLOCK SACROILIAC WITH C-ARM Pain Management Comment on above: BLOCK SACROILIAC WITH C-ARM Start: 09-01-2024 End: 09-01-2024 Inject si joint arthrgrphy&/anes/steroi d w/jany BLOCK SACROILIAC WITH C-ARM Sacroiliitis Chronic right sacroiliac joint pain 09/01/2024 2:25 PM EDT [facility] Start: 09-01-2024 Subsequent hospital visit by physician 09/01/2024 2:25 PM EDT Hospital Encounter Pain Management [address] [place] [address] Heather Davis MD [address] [phone] Sacroiliitis [M46.1], Chronic right sacroiliac joint pain [M53.3, G89.29] Pain Management Comment on above: Sacroiliitis [M46.1], Chronic right sacr oiliac joint pain [M53.3, G89.29] Start: 08-29-2024 End: 08-29-2024 Patient encounter procedure 08/29/2024 11:45 AM EDT Office Visit Dermatology [address] [place] [address] [place] [address] Vaishnavi Soria MD [address] [place] [address] Return in about 6 months (around 08/25/2024) Dermatology Comment on above: Return in about 6 months (around ) Start: 08-25-2024 End: 08-25-2024 Admission to same day surgery center 08/25/2024 8:57 AM EDT - 08/25/2024 9:41 AM EDT Surgery Pain Management [address] [place] [address] Heather Davis MD [address] [address] BLOCK SACROILIAC WITH C-ARM Pain Management Comment on above: BLOCK SACROILIAC WITH C-ARM Start: 08-25-2024 End: 08-25-2024 Inject si joint arthrgrphy&/anes/steroi d w/jany BLOCK SACROILIAC WITH C-ARM Sacroiliitis Chronic right sacroiliac joint pain 08/25/2024 8:57 AM EDT [facility] Start: 08-25-2024 Subsequent hospital visit by physician 08/25/2024 8:57 AM EDT Hospital Encounter Pain Management [address] [place] [address] Heather Davis MD [address] [facility] [address] [place], [place] [id number] Sacroiliitis [M46.1], Chronic right sacroiliac joint pain [M53.3, G89.29] Pain Management Comment on above: Sacroiliitis [M46.1], Chronic right sacr oiliac joint pain [M53.3, G89.29] Start: 08-24-2024 End: 08-24-2024 Follow-up encounter 08/24/2024 11:00 AM EDT [facility] [address] [place], [place] [id number] Bill Woods PA-C [address] [place] [address] Follow Up Neurology Comment on above: Follow Up Start: 08-18-2024 BP Controlled (<130/80) BP Controlled (<130/80) [facility] Start: 08-17-2024 End: 08-17-2024 Patient encounter procedure Pain Management Comment on above: Discuss Pain NPT MS Start: 08-12-2024 End: 08-12-2024 Patient encounter procedure Radiology Comment on above: MRI BRAIN WO IVCON MRI CERVICAL SPINE W O IVCON Start: 08-10-2024 BP Controlled (<130/80) BP Controlled (<130/80) [facility] Start: 08-05-2024 End: 08-05-2024 Patient encounter procedure 08/05/2024 12:20 PM EDT Office Visit Rehab Medicine [address] [place] [address] Meka Webb MD [address] [place], [place] [phone] Follow up Rehab Medicine Comment on above: Follow up Start: 08-04-2024 End: 08-04-2024 Patient encounter procedure 08/04/2024 10:00 AM EDT Office Visit [facility] [address] [place] [address] Chloe Mackenzie MD [address] [place] [address] 6month F/U [facility] Comment on above: 6month F/U Start: 08-03-2024 End: 08-03-2024 Follow-up encounter 08/03/2024 11:00 AM EDT [facility] [address] [place] [address] Bill Woods PA-C [address] [place] [address] Follow Up Neurology Comment on above: Follow Up Start: 07-28-2024 End: 10-27-2024 Bacteria identified in Urine by Culture BACTERIAL CULTURE, URINE Microbiology Routine Multiple sclerosis ([facility]) Memory impairment Urinary frequency Expected: 07/28/2024, Expires: 10/27/2024 [facility] Work Phone: Comment on above: Expected: 07/28/2024, Expires: Start: 07-28-2024 End: 10-27-2024 CBC W Auto Differential panel - Blood COMPLETE BLOOD COUNT AND DIFFERENTIAL Lab Routine Multiple sclerosis (HCC) Memory impairment Urinary frequency Expected: 07/28/2024, Expires: 10/27/2024 [facility] Comment on above: Expected: 07/28/2024, Expires: Start: 07-28-2024 End: 10-27-2024 Comprehensive metabolic 2000 panel - Serum or Plasma COMPREHENSIVE METABOLIC PANEL Lab Routine Multiple sclerosis (HCC) Memory impairment Urinary frequency Expected: 07/28/2024, Expires: 10/27/2024 [facility] Comment on above: Expected: 07/28/2024, Expires: Start: 07-28-2024 End: 10-27-2024 Urinalysis complete panel - Urine URINALYSIS, WITH MICROSCOPIC Lab Routine Multiple sclerosis (HCC) Memory impairment Urinary frequency Expected: 07/28/2024, Expires: 10/27/2024 [facility] Comment on above: Expected: 07/28/2024, Expires: Start: 07-26-2024 End: 10-25-2024 Comprehensive metabolic 2000 panel - Serum or Plasma COMPREHENSIVE METABOLIC PANEL Lab Routine Controlled type 2 diabetes mellitus without complication, unspecified whether prison insulin use (HCC) Expected: 07/26/2024, Expires: 10/25/2024 [facility] Work Phone: Comment on above: Expected: 07/26/2024, Expires: Start: 07-26-2024 End: 10-25-2024 Hemoglobin A1c in Blood HEMOGLOBIN A1C Lab Routine Controlled type 2 diabetes mellitus without complication, 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) Expected: 07/26/2024, Expires: 10/25/2024 [facility] Comment on above: Expected: 07/26/2024, Expires: Start: 07-26-2024 Hepatitis B surface antibody level LDL Cholesterol [facility] Start: 07-26-2024 End: 10-25-2024 LIPID PANEL, NONFASTING LIPID PANEL, NONFASTING Lab Routine Controlled type 2 diabetes mellitus without complication, unspecified whether prison insulin use (HCC) Expected: 07/26/2024, Expires: 10/25/2024 [facility] Comment on above: Expected: 07/26/2024, Expires: Start: 07-26-2024 End: 10-25-2024 Microalbumin/Creatinine [Mass Ratio] in Urine ALBUMIN/CREATININE RATIO, URINE Lab Routine Controlled type 2 diabetes mellitus without complication, unspecified whether prison insulin use (HCC) Expected: 07/26/2024, Expires: 10/25/2024 [facility] Comment on above: Expected: 07/26/2024, Expires: Start: 07-05-2024 End: 07-05-2024 Patient encounter procedure 07/05/2024 10:15 AM EDT Office Visit [facility] [address] [place] [address] Chloe Mackenzie MD [address] [place] [address] 6 month follow up [facility] Comment on above: 6 month follow up Start: 07-04-2024 Hemoglobin A1c measurement HbA1C [facility] Start: 06-28-2024 End: 06-28-2024 Patient encounter procedure 06/28/2024 9:20 AM EST Office Visit Rehab Medicine [address] [place], [place] [phone] Meka Webb MD [address] [place], [place] [id number] f/u with provider Rehab Medicine Comment on above: f/u with provider Start: 06-24-2024 BP Controlled (<130/80) BP Controlled (<130/80) [facility] Start: 06-16-2024 BP Controlled (<130/80) BP Controlled (<130/80) [facility] Start: 05-25-2024 End: 05-25-2024 Patient encounter procedure 05/25/2024 9:45 AM EST Office Visit [facility]ocrinology [address] [address] [place] [place] [address] Rosa Flores, AMMONIUM NITRATE CRYSTALLIZER.PUBLIC RELATIONS WRITER [address] [place] [address] 3 month f/u Endocrinology Comment on above: 3 month f/u Start: 05-12-2024 Hemoglobin A1c measurement HbA1C [facility] Start: 05-04-2024 End: 05-04-2024 Patient encounter procedure [facility] Comment on above: Return in about 6 months (around ) for repeat DFE + mac OCT . letter sent to r/s - Return in about 6 months (around 05/05/2024) for repeat DFE + mac OCT . Start: 04-27-2024 Advance Directive Discussion Advance Directive Discussion [facility] Start: 04-27-2024 Medicare Advantage Annual Wellness Visit Medicare [facility] Annual Wellness Visit [facility] Start: 04-13-2024 BP Controlled (<130/80) BP Controlled (<130/80) [facility] Start: 04-08-2024 End: 07-08-2024 PAIN PANEL, UR QUANT [facility] Work Phone: Comment on above: Expected: 04/08/2024, Expires: Start: 04-08-2024 End: 04-08-2024 Patient encounter procedure 04/08/2024 1:00 PM EST Office Visit Pain Management [address] [place], [place] [phone] Heather Davis MD [address] [address] [facility] Pain Management Comment on above: TPIs Start: 03-29-2024 End: 03-29-2024 Patient encounter procedure 03/29/2024 10:00 AM EST Office Visit Rehab Medicine [address] [place] [address] Meka Webb MD [address] [place] [address] 3 month follow up Rehab Medicine Comment on above: 3 month follow up Start: 03-25-2024 End: 03-25-2024 Specialty Pharmacy [facility] Comment on above: REFILL- Kesimpta (8th of each month) - t esting first to determine if staying on med. did not take July's dose. still has 1 on hand. as of 12/02 med still on hold. [facility] 02/07 REFILL- Kesimpta (8t h of each month) - did not take July's dose. still has 1 on hand. as of 02/15 med still on hold. Start: 03-11-2024 BP Controlled (<130/80) BP Controlled (<130/80) [facility] Start: 03-08-2024 End: 03-08-2024 Patient encounter procedure 03/08/2024 10:15 AM EST Office Visit [facility] [address] [place] [address] Chloe Mackenzie MD [address] [place] [address] s/p Surgical wound incision and drainage 02/19/24 [facility] Comment on above: s/p Surgical wound incision and drainage 02/19/24 Start: 03-06-2024 BP Controlled (<130/80) BP Controlled (<130/80) [facility] in Start: 02-26-2024 End: 02-26-2024 Patient encounter procedure 02/26/2024 10:15 AM EDT Office Visit Dermatology [address] [place], [place] [phone] Vaishnavi Soria MD [address] [place] [address] [place], [place] [id number] 3 months (around 02/19/2024) for follow up. Dermatology Comment on above: 3 months (around 02/19/2024) for follow up. Start: 02-24-2024 End: 02-24-2024 Patient encounter procedure 02/24/2024 9:15 AM EDT Office Visit Endocrinology [address] [place] [address] Rosa Flores, AMMONIUM NITRATE CRYSTALLIZER.PUBLIC RELATIONS WRITER [address] [place] [address] 6 mo follow up Endocrinology Comment on above: 6 mo follow up Start: 02-19-2024 End: 02-19-2024 I&d deep abscess pst spine crv thrc/cervicothr INCISION AND DRAINAGE ABSCESS POSTERIOR SPINE; CERVICAL, THORACIC, OR CERVICOTHORACIC Wound infection after surgery 02/19/2024 12:30 PM EDT MR OR Start: 02-19-2024 End: 02-19-2024 I&d deep abscess pst spine crv thrc/cervicothr INCISION AND DRAINAGE ABSCESS POSTERIOR SPINE; CERVICAL, THORACIC, OR CERVICOTHORACIC Wound infection after surgery 02/19/2024 10:50 AM EDT MR OR Start: 02-18-2024 End: 02-18-2024 Patient encounter procedure [facility] Comment on above: FU-surgery consult wound check (back) p er Dr. Mackenzie, patient c/o blood tinged drainage x 3 days Start: 02-12-2024 End: 02-12-2024 Specialty Pharmacy 02/12/2024 10:00 AM EDT Specialty Pharmacy [facility] [address] [phone] Pharmacist, [facility] [address] [place] [address] [place] [address] REFILL- Kesimpta ( of each month) - testing first to determine if staying on med. did not take Karis's dose. still has 1 on hand. as of 12/02 med still on hold. [facility] 02/07 [facility] Comment on above: REFILL- Kesimpta ( of each month) - t esting first to determine if staying on med. did not take Karis's dose. still has 1 on hand. as of 12/02 med still on hold. [facility] 02/07 Start: 02-11-2024 End: 02-11-2024 Patient encounter procedure [facility] Comment on above: follow up S/p T10-T11 LAMINECT REINALDO, L3-4 LAMINECTOMY 01/20/24 REFILL- Kesimpta (8t h of each month) - testing first to determine if staying on med. did not take Karis's dose. still has 1 on hand. as of 12/02 med still on hold. [facility] 02/07 Start: 02-08-2024 End: 02-08-2024 Specialty Pharmacy 02/08/2024 10:00 AM EDT Specialty Pharmacy [facility] We [address] [address] Pharmacist, [facility] [address] [place] [address] [place] [address] REFILL- Kesimpta ( of each month) - testing first to determine if staying on med. did not take Karis's dose. still has 1 on hand. as of 12/02 med still on hold. follow up 02/07 [facility] Specialty Pharmacy Comment on above: REFILL- Bobsimpta ( of each month) - t esting first to determine if staying on med. did not take Karis's dose. still has 1 on hand. as of 12/02 med still on hold. follow up 02/07 Start: 01-26-2024 End: 04-26-2024 Comprehensive metabolic 2000 panel - Serum or Plasma COMPREHENSIVE METABOLIC PANEL Lab Routine Type 2 diabetes mellitus with other specified complication, without long-term current use of insulin (HCC) Expected: 01/26/2024, Expires: 04/26/2024 [facility] Work Phone: Comment on above: Expected: 01/26/2024, Expires: Start: 01-26-2024 End: 04-26-2024 Hemoglobin A1c in Blood HEMOGLOBIN A1C Lab Routine Type 2 diabetes mellitus with other specified complication, without long-term current use of insulin (HCC) Expected: 01/26/2024, Expires: 04/26/2024 [facility] Comment on above: Expected: 01/26/2024, Expires: Start: 01-26-2024 Hemoglobin A1c measurement HbA1C [facility] Start: 01-26-2024 End: 04-26-2024 LIPID PANEL, NONFASTING LIPID PANEL, NONFASTING Lab Routine Type 2 diabetes mellitus with other specified complication, without long-term current use of insulin (HCC) Expected: 01/26/2024, Expires: 04/26/2024 [facility] Comment on above: Expected: 01/26/2024, Expires: Start: 01-26-2024 End: 04-26-2024 Microalbumin/Creatinine [Mass Ratio] in Urine ALBUMIN/CREATININE RATIO, URINE Lab Routine Type 2 diabetes mellitus with other specified complication, without long-term current use of insulin (HCC) Expected: 01/26/2024, Expires: 04/26/2024 [facility] Comment on above: Expected: 01/26/2024, Expires: Start: 01-20-2024 BP Controlled (<130/80) BP Controlled (<130/80) [facility] Start: 01-20-2024 End: 01-20-2024 Admission to same day surgery center [facility] Surgery Comment on above: DECOMPRESSION LAMINECTOMY THORACIC, FACE TECTOMY AND FORAMINOTOMY, SPINAL OR LATERAL RECESS STENOSIS SINGLE LEVEL 1 Start: 01-20-2024 End: 01-20-2024 Brito facetectomy & foramotomy 1 segment lumbar MR OR Start: 01-20-2024 End: 01-20-2024 Brito facetectomy & foramotomy 1 segment thoracic MR OR Start: 01-20-2024 Subsequent hospital visit by physician [facility] Surgery Comment on above: Spinal stenosis of thoracic region [M48. 04] Start: 01-15-2024 Hepatitis B surface antibody level LDL Cholesterol [facility] Start: 01-11-2024 End: 01-11-2024 Patient encounter procedure 01/11/2024 2:00 PM EDT Office Visit [facility] [address] [phone] Meka Webb MD [address] [place] [address] MRI results/referral to neurosurgeon [facility] Comment on above: MRI results/referral to neurosurgeon Start: 01-05-2024 End: 04-05-2024 Hemoglobin A1c in Blood [facility] Work Phone: Comment on above: Expected: 01/05/2024, Expires: Start: 01-05-2024 End: 01-05-2024 Anesthesia consultation 01/05/2024 8:00 AM EDT PAT Pre Anesthesia [address] [place] [address] DECOMPRESSION LAMINECTOMY THORACIC, FACETECTOMY AND FORAMINOTOMY, SPINAL OR LATERAL RECESS STENOSIS SINGLE LEVEL 1 [[id number]] - Spine Thoracic - Bilateral Pre Anesthesia Comment on above: DECOMPRESSION LAMINECTOMY THORACIC, FACE TECTOMY AND FORAMINOTOMY, SPINAL OR LATERAL RECESS STENOSIS SINGLE LEVEL 1 [[id number]] - Spine Thoracic - Bilateral Start: 12-29-2023 End: 12-29-2023 Patient encounter procedure 12/29/2023 9:20 AM EDT Office Visit Rehab Medicine [address] [place] [address] Meka Webb MD [address] [place] [address] Follow up [facility] Comment on above: Follow up Start: 12-27-2023 Covid-19 Vaccine () Covid-19 Vaccine () [facility] Start: 12-27-2023 Covid-19 Vaccine () Covid-19 Vaccine () [facility] Start: 12-27-2023 Influenza vaccination [facility] Start: 12-25-2023 End: 12-25-2023 Patient encounter procedure 12/25/2023 10:30 AM EDT Office Visit [facility] [address] [address] Bill Woods PA-C [address] [place] [address] follow up [facility] Comment on above: follow up Start: 12-19-2023 Screening for malignant neoplasm of cervix Cervical Cancer Screening [facility] Start: 12-17-2023 End: 12-17-2023 Patient encounter procedure 12/17/2023 9:45 AM EDT Office Visit [facility] [address] [place] [address] Chloe Mackenzie MD [address] [place] [address] thoracic stenosis [facility] Comment on above: thoracic stenosis Start: 12-09-2023 End: 12-09-2023 Specialty Pharmacy 12/09/2023 10:00 AM EDT Specialty Pharmacy [facility] We [facility] [address] [place] [address] Pharmacist, [facility] [address] [place] [address] REFILL- Kesimpta ( of each month) - med on hold for 3 months. testing first to determine if staying on med. did not take Karis's dose. still has 1 on hand. multiple attempts to follow up [facility] Comment on above: REFILL- Kesimpta ( of each month) - m ed on hold for 3 months. testing first to determine if staying on med. did not take Karis's dose. still has 1 on hand. multiple attempts to follow up Start: 12-08-2023 End: 12-08-2023 Patient encounter procedure 12/08/2023 11:20 AM EDT Office Visit Pain Management [address] [place] [address] Heather Davis MD [address] [place] [address] [facility] Comment on above: TPI Start: 12-04-2023 BP CONTROLLED (<130/80) BP CONTROLLED (<130/80) [facility] Start: 12-04-2023 End: 12-04-2023 Patient encounter procedure 12/04/2023 11:40 AM EDT Appointment Cat Scan [address] [place] [address] CT THORACIC SPINE WO IVCON [facility] Comment on above: CT THORACIC SPINE WO IVCON Start: 12-02-2023 End: 12-02-2023 Specialty Pharmacy 12/02/2023 10:00 AM EDT Specialty Pharmacy [facility] [address] [place] [address] Drive [address] [place] [address] Pharmacist, [facility] [address] [place] [address] [place], [place] [id number] REFILL- Kesimpta ( of each month) - med on hold for 3 months. testing first to determine if staying on med. did not take Karis's dose. still has 1 on hand. lvm to follow up 11/23, 11/26 [facility] Comment on above: REFILL- Kesimpta (8th of each month) - m ed on hold for 3 months. testing first to determine if staying on med. did not take Karis's dose. still has 1 on hand. 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 testing first to determine if staying on med. did not take Karis's dose. still has 1 on hand. lvm to follow up 11/23 Start: 11-24-2023 End: 11-24-2023 Specialty Pharmacy 11/24/2023 10:00 AM EDT Specialty Pharmacy [facility] [address] [place] [address] [address] [place] [address] Pharmacist, [facility] [address] [place] [address] [place] [address] REFILL- Kesimpta (8th of each month) - med on hold for 3 months. follow up 11/23. testing first to determine if staying on med. did not take Karis's dose. still has 1 on hand. [facility] Comment on above: REFILL- Kesimpta (8th of each month) - m ed on hold for 3 months. follow up 11/23. testing first to determine if staying on med. did not take Karis's dose. still has 1 on hand. Start: 11-19-2023 End: 11-19-2023 Patient encounter procedure 11/19/2023 4:00 PM EDT Office Visit Dermatology [address] [place], [place] [phone] Vaishnavi Soria MD [address] [place], [place] [id number] 4 weeks (around 11/11/2023) for follow up. Dermatology Comment on above: 4 weeks (around 11/11/2023) for follow up . Start: 11-10-2023 End: 02-09-2024 CD19 ABSOLUTE COUNT [facility] Work Phone: Comment on above: Expected: 11/10/2023, Expires: Start: 11-06-2023 BP CONTROLLED (<130/80) BP CONTROLLED (<130/80) [facility] Start: 11-03-2023 End: 11-03-2023 Patient encounter procedure 11/03/2023 3:30 PM EDT Office Visit OP[facility] [address] [place] [address] Kourtney Purdy, CHRISTIE [address] [place] [address] [facility] Comment on above: [facility] Start: 10-26-2023 End: 10-26-2023 Specialty Pharmacy 10/26/2023 10:00 AM EDT Specialty Pharmacy [facility] [address] [place], [place] [address] [place] [address] Pharmacist, [facility] [address] [place] [phone] REFILL- Kesimpta ( of each month) - med on hold for 3 months. follow up in October. testing first to determine if staying on med. did not take Karis's dose. still has 1 on hand. [facility] Comment on above: REFILL- Kesimpta ( of each month) - m ed on hold for 3 months. follow up in October. testing first to determine if staying on med. did not take Karsi's dose. still has 1 on hand. Start: 10-20-2023 End: 10-20-2023 Patient encounter procedure 10/20/2023 10:00 AM EDT Office Visit Rehab Medicine [address] [place], [place] [phone] Meka Webb MD [address] [place] [address] follow up Rehab Medicine Comment on above: follow up Start: 10-14-2023 End: 10-14-2023 Patient encounter procedure 10/14/2023 10:00 AM EDT Office Visit Dermatology [address] [place] [address] [place] [address] Vaishnavi Soria MD [address] [place] [address] [place], [place] [phone] LESIONS ARE NOT RESPONDING TO ANTIBIOTIC Dermatology Comment on above: LESIONS ARE NOT RESPONDING TO ANTIBIOTIC Start: 10-08-2023 End: 10-08-2023 Patient encounter procedure 10/08/2023 11:15 AM EDT Office Visit [address] [address] Bill Woods PA-C [address] [place], [place] [phone] follow up [facility] Comment on above: follow up Start: 09-24-2023 End: 12-24-2023 CD19 ABSOLUTE COUNT [facility] Work Phone: Comment on above: Expected: 09/24/2023, Expires: Start: 09-24-2023 End: 09-24-2023 Patient encounter procedure 09/24/2023 8:45 AM EDT Office Visit [address] [address] Bill Woods PA-C [address] [place], [place] [phone] follow up [facility] Comment on above: follow up Start: 09-16-2023 End: 09-16-2023 Patient encounter procedure 09/16/2023 11:20 AM EDT Appointment Radiology [address] [place], [place] [phone] Thoracic myelopathy [M47.14] Radiology Comment on above: Thoracic myelopathy [M47.14] Start: 09-15-2023 End: 09-15-2023 Patient encounter procedure Pain Management Comment on above: tpi follow up Start: 08-31-2023 End: 08-31-2023 Patient encounter procedure 08/31/2023 3:40 PM EDT Office Visit [facility] [address] [place] [address] Meka Webb MD [address] [phone] Discuss MRI results [facility] Comment on above: Discuss MRI results Start: 08-27-2023 End: 08-27-2023 Specialty Pharmacy 08/27/2023 10:00 AM EDT Specialty Pharmacy [facility] [address] [place], [place] [phone] Pharmacist, [facility] [address] [place] [address] [place] [phone] REFILL- Kesimpta ( of each month) - lvm 08/23 [facility] Comment on above: REFILL- Kesimpta ( of each month) - l vm 08/23 Start: 08-24-2023 End: 08-24-2023 Specialty Pharmacy 08/24/2023 10:00 AM EDT Specialty Pharmacy [facility] [address] [place] [id number] Pharmacist, [facility] [address] [place] [address] [place], [place] [phone] REFILL- Kesimpta (8th of each month) - [facility] Specialty Pharmacy Comment on above: REFILL- Kesimpta ( of each month) - Start: 08-07-2023 BP CONTROLLED (<130/80) BP CONTROLLED (<130/80) [facility] Start: 07-31-2023 BP CONTROLLED (<130/80) BP CONTROLLED (<130/80) [facility] Start: 07-27-2023 End: 09-26-2023 ALBUMIN/CREAT RATIO RND UR ALBUMIN/CREAT RATIO RND UR Lab Routine Controlled type 2 diabetes mellitus without complication, 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) Expected: 07/27/2023, Expires: 09/26/2023 [facility] Work Phone: Comment on above: Expected: 07/27/2023, Expires: Start: 07-27-2023 End: 09-26-2023 Comprehensive metabolic 2000 panel - Serum or Plasma COMP METABOLIC PANEL Lab Routine Controlled type 2 diabetes mellitus without complication, 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) Expected: 07/27/2023, Expires: 09/26/2023 [facility] Work Phone: Comment on above: Expected: 07/27/2023, Expires: Start: 07-27-2023 End: 09-26-2023 Hemoglobin A1c in Blood HGB A1C Lab Routine Controlled type 2 diabetes mellitus without complication, unspecified whether prison insulin use (HCC) Expected: 07/27/2023, Expires: 09/26/2023 [facility] Work Phone: Comment on above: Expected: 07/27/2023, Expires: Start: 07-27-2023 End: 09-26-2023 LIPID PANEL, NONFASTING LIPID PANEL, NONFASTING Lab Routine Controlled type 2 diabetes mellitus without complication, 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) Expected: 07/27/2023, Expires: 09/26/2023 [facility] Work Phone: Comment on above: Expected: 07/27/2023, Expires: Start: 07-15-2023 Hemoglobin A1c measurement HbA1C [facility] Start: 07-15-2023 Hemoglobin A1c/Hemoglobin.total in Blood HbA1C [facility] Start: 04-27-2023 Advance Directive Discussion Advance Directive Discussion [facility] Start: 02-11-2023 BP CONTROLLED (<130/80) BP CONTROLLED (<130/80) [facility] Start: 01-25-2023 End: 03-27-2023 ALBUMIN/CREAT RATIO RND UR ALBUMIN/CREAT RATIO RND UR Lab Routine Type II diabetes mellitus with manifestations (HCC) Expected: 01/25/2023, Expires: 03/27/2023 [facility] Work Phone: Comment on above: Expected: 01/25/2023, Expires: 3 Start: 01-25-2023 End: 03-27-2023 Comprehensive metabolic 2000 panel - Serum or Plasma COMP METABOLIC PANEL Lab Routine Type II diabetes mellitus with manifestations (HCC) Expected: 01/25/2023, Expires: 03/27/2023 [facility] Work Phone: Comment on above: Expected: 01/25/2023, Expires: Start: 01-25-2023 End: 03-27-2023 Hemoglobin A1c in Blood HGB A1C Lab Routine Type II diabetes mellitus with manifestations (HCC) Expected: 01/25/2023, Expires: 03/27/2023 [facility] Work Phone: Comment on above: Expected: 01/25/2023, Expires: Start: 01-25-2023 End: 03-27-2023 LIPID PANEL, NONFASTING LIPID PANEL, NONFASTING Lab Routine Type II diabetes mellitus with manifestations (HCC) Expected: 01/25/2023, Expires: 03/27/2023 [facility] Work Phone: Comment on above: Expected: 01/25/2023, Expires: 3 Start: 01-19-2023 End: 03-21-2023 Ferritin [Mass/volume] in Serum or Plasma FERRITIN BLD Lab Routine Obstructive sleep apnea Insomnia, unspecified type RLS (restless legs syndrome) Hypersomnia due to medical condition Expected: 01/19/2023, Expires: 03/21/2023 [facility] Work Phone: Comment on above: Expected: 01/19/2023, Expires: 3 Start: 01-19-2023 End: 03-21-2023 Iron and Iron binding capacity panel - Serum or Plasma IRON + TIBC Lab Routine Obstructive sleep apnea Insomnia, unspecified type RLS (restless legs syndrome) Hypersomnia due to medical condition Expected: 01/19/2023, Expires: 03/21/2023 [facility] Work Phone: Comment on above: Expected: 01/19/2023, Expires: Start: 01-14-2023 End: 03-16-2023 Methylmalonate [Moles/volume] in Serum or Plasma [facility] Work Phone: Comment on above: Expected: 01/14/2023, Expires: 3 Start: 12-26-2022 Covid-19 Vaccine () Covid-19 Vaccine () [facility] Start: 12-26-2022 Influenza vaccination [facility] Start: 11-05-2022 Hemoglobin A1c/Hemoglobin.total in Blood HBA1C [facility] Start: 10-28-2022 Hepatitis B surface antibody level LDL CHOLESTEROL [facility] Start: 10-22-2022 BP CONTROLLED (<130/80) BP CONTROLLED (<130/80) [facility] Start: 07-23-2022 End: 09-22-2022 Bacteria identified in Urine by Culture URINE CULTURE Microbiology Routine Multiple sclerosis ([facility]) Urinary frequency Expected: 07/23/2022, Expires: 09/22/2022 [facility] Work Phone: Comment on above: Expected: 07/23/2022, Expires: 3 Start: 07-23-2022 End: 09-22-2022 CBC W Auto Differential panel - Blood CBC + DIFF Lab Routine Multiple sclerosis ([facility]) Urinary frequency Expected: 07/23/2022, Expires: 09/22/2022 [facility] Work Phone: Comment on above: Expected: 07/23/2022, Expires: 3 Start: 07-23-2022 End: 09-22-2022 CD19 ABSOLUTE COUNT CD19 ABSOLUTE COUNT Lab Routine Multiple sclerosis ([facility]) Urinary frequency Expected: 07/23/2022, Expires: 09/22/2022 [facility] Work Phone: Comment on above: Expected: 07/23/2022, Expires: 3 Start: 07-23-2022 End: 09-22-2022 Comprehensive metabolic 2000 panel - Serum or Plasma COMP METABOLIC PANEL Lab Routine Multiple sclerosis ([facility]) Urinary frequency Expected: 07/23/2022, Expires: 09/22/2022 [facility] Work Phone: Comment on above: Expected: 07/23/2022, Expires: 3 Start: 07-23-2022 End: 09-22-2022 IgG [Mass/volume] in Serum or Plasma IGG Lab Routine Multiple sclerosis ([facility]) Urinary frequency Expected: 07/23/2022, Expires: 09/22/2022 [facility] Work Phone: Comment on above: Expected: 07/23/2022, Expires: 3 Start: 07-23-2022 End: 09-22-2022 IgM [Mass/volume] in Serum or Plasma IGM Lab Routine Multiple sclerosis ([facility]) Urinary frequency Expected: 07/23/2022, Expires: 09/22/2022 [facility] Work Phone: Comment on above: Expected: 07/23/2022, Expires: 3 Start: 07-23-2022 End: 09-22-2022 Urinalysis complete panel - Urine URINALYSIS, WITH MICROSCOPIC Lab Routine Multiple sclerosis ([facility]) Urinary frequency Expected: 07/23/2022, Expires: 09/22/2022 [facility] Work Phone: Comment on above: Expected: 07/23/2022, Expires: 3 Start: 04-27-2022 ADVANCE DIRECTIVE DISCUSSION ADVANCE DIRECTIVE DISCUSSION [facility] Start: 04-02-2022 [facility] Work Phone: Start: 04-01-2022 Patient referral [facility] Work Phone: Start: 02-07-2022 End: 02-07-2022 [facility] Work Phone: Start: 01-22-2022 Hemoglobin A1c/Hemoglobin.total in Blood HBA1C [facility] Start: 12-29-2021 COVID-19 VACCINE (3 - Booster for Daniele series) COVID-19 VACCINE (3 - Booster for Daniele series) [facility] Start: 12-29-2021 COVID-19 VACCINE (3 - Daniele risk series) COVID-19 VACCINE (3 - Daniele risk series) [facility] Start: 12-26-2021 Influenza vaccination [facility] Start: 11-20-2021 Patient discharge [facility] Work Phone: Start: 11-19-2021 [facility] Work Phone: Start: 11-18-2021 Referral to occupational therapist [facility] Work Phone: Start: 11-18-2021 Referral to service [facility] Work Phone: Start: 11-17-2021 End: 11-18-2021 [facility] Work Phone: Start: 11-17-2021 Chart related administrative procedure [facility] Work Phone: Start: 11-17-2021 Care regimes management [facility] Work Phone: Start: 11-17-2021 Notification of physician [facility] Work Phone: Start: 11-16-2021 Following clinical pathway protocol [facility] Work Phone: Start: 11-16-2021 Assessment of risk of venous thromboembolism [facility] Work Phone: Start: 11-16-2021 Care regimes management [facility] Work Phone: Start: 11-16-2021 Inhalation therapy procedure [facility] Work Phone: Start: 11-16-2021 Insertion of catheter into peripheral vein [facility] Work Phone: Start: 11-16-2021 Measuring intake and output [facility] Work Phone: Start: 11-16-2021 Notification of physician [facility] Work Phone: Start: 11-16-2021 Patient education [facility] Work Phone: Start: 11-16-2021 Providing care according to standard [facility] Work Phone: Start: 11-16-2021 Provision of activity privileges [facility] Work Phone: Start: 11-16-2021 [facility] Work Phone: Start: 11-16-2021 Verification routine [facility] Work Phone: Start: 11-16-2021 Admission procedure [facility] Work Phone: Start: 11-16-2021 [facility] Work Phone: Start: 11-16-2021 End: 11-16-2021 Blood culture [facility] Work Phone: Start: 10-10-2021 Patient referral [facility] Work Phone: Start: 04-27-2021 ADVANCE DIRECTIVE DISCUSSION ADVANCE DIRECTIVE DISCUSSION [facility] Start: 01-08-2021 COVID-19 VACCINE (2 - Daniele risk 3-dose series) COVID-19 VACCINE (2 - Daniele risk 3-dose series) [facility] Start: 01-08-2021 COVID-19 VACCINE (2 - Daniele risk series) COVID-19 VACCINE (2 - Daniele risk series) [facility] Start: 12-13-2019 BONE DENSITY BONE DENSITY [facility] Start: 12-13-2019 Bone Density Screening Bone Density Screening [facility] Start: 12-13-2019 PNEUMOVAX AGE 65 AND OVER WITH 5YR LOOKBACK (#1) PNEUMOVAX AGE 65 AND OVER WITH 5YR LOOKBACK (#1) [facility] Start: 12-13-2019 Screening for osteoporosis Bone Density Screening [facility] Start: 06-23-2018 Hemoglobin A1c/Hemoglobin.total in Blood HBA1C [facility] Start: 02-29-2016 Colonoscopy COLONOSCOPY [facility] Start: 02-29-2016 COLORECTAL CANCER SCREENING COLORECTAL CANCER SCREENING [facility] Start: 02-29-2016 Screening for malignant neoplasm of colon [facility] Start: 2014 HEPATITIS B (1 of 3 - Risk 3-dose series) HEPATITIS B (1 of 3 - Risk 3-dose series) [facility] Start: 2014 Hepatitis B Vaccine (1 of 3 - Risk 3-dose series) Hepatitis B Vaccine (1 of 3 - Risk 3-dose series) [facility] Start: 2014 RSV Vaccine (1 - 1-dose 60+ series) RSV Vaccine (1 - 1-dose 60+ series) [facility] Start: 2014 RSV Vaccine (1 - Risk 60-74 years 1-dose series) RSV Vaccine (1 - Risk 60-74 years 1-dose series) [facility] Start: 02-25-2014 Pneumococcal Vaccine: 50+ (2 of 2 - PCV) Pneumococcal Vaccine: 50+ (2 of 2 - PCV) [facility] Start: 02-25-2014 Pneumococcal Vaccine: 65+ (2 - PCV) Pneumococcal Vaccine: 65+ (2 - PCV) [facility] Start: 02-25-2014 Pneumococcal Vaccine: 65+ (2 of 2 - PCV) Pneumococcal Vaccine: 65+ (2 of 2 - PCV) [facility] Start: 02-25-2014 PNEUMOCOCCAL: 65+ (2 - PCV) PNEUMOCOCCAL: 65+ (2 - PCV) [facility] Start: 2004 Screening for malignant neoplasm of lung Lung Cancer Screening [facility] Start: 2004 SHINGRIX VACCINE (1 of 2) SHINGRIX VACCINE (1 of 2) [facility] Start: 12-13-1999 COLOGUARD (FIT-DNA) COLOGUARD (FIT-DNA) [facility] Start: 12-13-[address] COLONOGRAPHY [facility] Start: 12-13-1999 FECAL OCCULT BLOOD FECAL OCCULT BLOOD [facility] Start: 12-13-1999 Screening for malignant neoplasm of colon [facility] Start: 12-13-1999 SIGMOIDOSCOPY SIGMOIDOSCOPY [facility] Start: 1994 Mammography [facility] Start: 1994 Screening for malignant neoplasm of breast Mammogram Screening [facility] Start: 1984 Zoledronic acid therapy Alpha-1 Antitrypsin Deficiency Screening [facility] Start: 1973 HEPATITIS A (1 of 2 - Risk 2-dose series) HEPATITIS A (1 of 2 - Risk 2-dose series) [facility] Start: 1973 Hepatitis A Vaccine (1 of 2 - Risk 2-dose series) Hepatitis A Vaccine (1 of 2 - Risk 2-dose series) [facility] Start: 1973 HEPATITIS B (1 of 3 - Risk 3-dose series) HEPATITIS B (1 of 3 - Risk 3-dose series) [facility] Start: 1973 SHINGRIX VACCINE (1 of 2) SHINGRIX VACCINE (1 of 2) [facility] Start: 1973 Urine microalbumin profile [facility] Start: 1972 ANNUAL PCP TEAM CHRONIC DISEASE VISIT ANNUAL PCP TEAM CHRONIC DISEASE VISIT [facility] Start: 1972 BP CONTROLLED (<130/80) BP CONTROLLED (<130/80) [facility] Start: 1972 Hepatitis B surface antibody level LDL CHOLESTEROL [facility] Start: 1972 MMR (1 of 2 - Risk 2-dose series) MMR (1 of 2 - Risk 2-dose series) [facility] Start: 1972 MMR Vaccine (1 of 2 - Risk 2-dose series) MMR Vaccine (1 of 2 - Risk 2-dose series) [facility] Start: 1972 Spirometry Spirometry [facility] Start: 1964 3 comp foot exam completed DIABETIC FOOT EXAM [facility] Start: 1964 Diabetic foot examination Diabetic Foot Exam [facility] Start: 1964 Glaucoma screening Dilated Retinal Exam [facility] Start: 1964 Hepatitis B screening URINE ALBUMIN:CREATININE RATIO [facility] Start: 1964 Hepatitis C antibody, confirmatory test DILATED RETINAL EXAM [facility] Start: 1964 Meningococcal B Vaccine: Consider Based On Risk (1 of 4 - Increased Risk) Meningococcal B Vaccine: Consider Based On Risk (1 of 4 - Increased Risk) [facility] Start: 1964 MENINGOCOCCAL B: Consider based on risk (1 of 4 - Increased Risk Bexsero 2-dose series) MENINGOCOCCAL B: Consider based on risk (1 of 4 - Increased Risk Bexsero 2-dose series) [facility] Start: 1964 MENINGOCOCCAL B: Consider based on risk (1 of 4 - Increased Risk) MENINGOCOCCAL B: Consider based on risk (1 of 4 - Increased Risk) [facility] Start: 1960 PNEUMOCOCCAL: 65+ (1 - PCV) PNEUMOCOCCAL: 65+ (1 - PCV) [facility] Start: 12-13-1955 HEPATITIS A (1 of 2 - Risk 2-dose series) HEPATITIS A (1 of 2 - Risk 2-dose series) [facility] Bacteria identified in Blood by Culture Blood Culture [facility] Work Phone: Bacteria identified in Urine by Culture Urine Culture [facility] Work Phone: Blood culture [facility] Work Phone: End: 12-26-2024 CT Lumbar spine WO contrast CT LUMBAR SPINE WO IVCON Radiology Routine Spinal stenosis of lumbar region with neurogenic claudication 1 Occurrences starting 11/27/2023 until 12/26/2024 [facility] Comment on above: 1 Occurrences starting 11/27/2023 until 12/26/2024 CT Lumbar spine WO contrast CT LUMBAR SPINE WO IVCON Radiology Routine Spinal stenosis of lumbar region with neurogenic claudication 12/04/2023 11:47 AM EDT [facility] End: 12-26-2024 CT Thoracic spine WO contrast CT THORACIC SPINE WO IVCON Radiology Routine Thoracic myelopathy 1 Occurrences starting 11/27/2023 until 12/26/2024 [facility] Work Phone: Comment on above: 1 Occurrences starting 11/27/2023 until 12/26/2024 CT Thoracic spine WO contrast CT THORACIC SPINE WO IVCON Radiology Routine Thoracic myelopathy 12/04/2023 11:47 AM EDT [facility] Work Phone: Injection single/surgery aide trigger point 3/> muscles TRIGGER POINT INJECTION MULTI 3+ MUSCLE GRP Procedures Routine Myofascial pain Myofascial neck pain Tight unbalanced muscles Ordered: 03/11/2023 [facility] Work Phone: Comment on above: Ordered: 03/11/2023 Injection single/surgery aide trigger point 3/> muscles TRIGGER POINT INJECTION MULTI 3+ MUSCLE GRP Procedures Routine Myofascial pain Abnormal posture Abnormal increased muscle tightness Ordered: 04/03/2023 [facility] Work Phone: Comment on above: Ordered: 04/03/2023 Injection single/surgery aide trigger point 3/> muscles TRIGGER POINT INJECTION MULTI 3+ MUSCLE GRP Procedures Routine Other chronic pain MS (multiple sclerosis) (HCC) Myofascial pain syndrome of lumbar spine Myofascial pain Lumbar pain Neck pain, chronic Ordered: 06/16/2023 [facility] Work Phone: Comment on above: Ordered: 06/16/2023 Injection single/surgery aide trigger point 3/> muscles TRIGGER POINT INJECTION MULTI 3+ MUSCLE GRP Procedures Routine MS (multiple sclerosis) (HCC) Myofascial pain syndrome Myofascial pain syndrome of lumbar spine Myofascial pain syndrome, cervical Myofascial pain Ordered: 08/11/2023 [facility] Work Phone: Comment on above: Ordered: 08/11/2023 Injection single/surgery aide trigger point 3/> muscles TRIGGER POINT INJECTION MULTI 3+ MUSCLE GRP Procedures Routine Myofascial pain Other chronic pain Myofascial pain syndrome of lumbar spine Ordered: 09/15/2023 [facility] Work Phone: Comment on above: Ordered: 09/15/2023 End: 07-23-2024 MR Brain WO contrast MRI BRAIN WO IVCON Radiology Routine Multiple sclerosis ([facility]) 1 Occurrences starting 06/24/2023 until 07/23/2024 [facility] Work Phone: Comment on above: 1 Occurrences starting 06/24/2023 until 07/23/2024 End: 04-03-2025 MR Brain WO contrast MRI BRAIN WO IVCON Radiology Routine Multiple sclerosis (HCC) 1 Occurrences starting 03/04/2024 until 04/03/2025 [facility] Work Phone: Comment on above: 1 Occurrences starting 03/04/2024 until 04/03/2025 End: 04-03-2025 MR Cervical spine WO contrast MRI CERVICAL SPINE WO IVCON Radiology Routine Multiple sclerosis (HCC) 1 Occurrences starting 03/04/2024 until 04/03/2025 [facility] Comment on above: 1 Occurrences starting 03/04/2024 until 04/03/2025 End: 10-14-2024 MR Thoracic spine WO and W contrast IV MRI THORACIC SPINE WO/W IVCON Radiology KASEY Thoracic myelopathy History of multiple sclerosis (HCC) 1 Occurrences starting 09/15/2023 until 10/14/2024 [facility] Comment on above: 1 Occurrences starting 09/15/2023 until 10/14/2024 OCT MACULA CIRRUS OU (BOTH EYES) OCT MACULA CIRRUS OU (BOTH EYES) OPHT Imaging Routine Nonexudative age-related macular degeneration, bilateral, early dry stage 11/03/2023 4:56 PM EDT [facility] Work Phone: PAIN PANEL, UR QUANT PAIN PANEL, UR QUANT Lab Routine Chronic pain syndrome Other chronic pain Neck pain, chronic 04/08/2024 1:20 PM EST [facility] Patient Education [facility] Work Phone: Patient referral [facility] Work Phone: End: 01-19-2024 Polysomnogram POLYSOMNOGRAM (PSG) Procedures Routine Obstructive sleep apnea Insomnia, unspecified type RLS (restless legs syndrome) 1 Occurrences starting 01/19/2023 until 01/19/2024 [facility] Work Phone: Comment on above: 1 Occurrences starting 01/19/2023 until 01/19/2024 SPECIMEN VALIDITY, URINE SPECIMEN VALIDITY, URINE Lab Routine Chronic pain syndrome Other chronic pain Neck pain, chronic 04/08/2024 1:20 PM EST [facility] SWALLOW EVALUATION SWALLOW EVALU ATION Procedures Routine Multiple sclerosis (HCC) Dysarthria Ordered: 07/28/2024 [facility] Comment on above: Ordered: 07/28/2024 End: 02-24-2025 XR Lumbar spine AP and Lateral XR LUMBAR LIMITED 2V AP/LAT Radiology Routine S/P lumbar laminectomy 1 Occurrences starting 02/05/2024 until 02/24/2025 [facility] Work Phone: Comment on above: 1 Occurrences starting 02/05/2024 until 02/24/2025 XR Lumbar spine AP a nd Lateral XR LUMBAR LIMITED 2V AP/LAT Radiology Routine S/P lumbar laminectomy 02/11/2024 11:00 AM EDT [facility] Work Phone: XR Lumbar spine AP a nd Lateral XR LUMBAR LIMITED 2V AP/LAT Radiology Routine S/P lumbar laminectomy 03/08/2024 9:02 AM EST [facility] Work Phone: XR Lumbar spine View s W flexion and W extension XR LUMBAR MOTION 4V AP/LAT/ FLEX/EXT Radiology Routine S/P lumbar laminectomy 08/04/2024 10:06 AM EDT [facility] Work Phone: XR Lumbar spine View s W flexion and W extension XR LUMBAR MOTION 4V AP/LAT/ FLEX/EXT Radiology Routine Low back pain, unspecified back pain laterality, unspecified chronicity, unspecified whether sciatica present 10/25/2024 9:01 AM EDT [facility] Work Phone: End: 10-14-2024 XR Thoracic spine AP and Lateral and Swimmers XR THORACIC GENERAL 3V AP/LAT/SWIMMERS Radiology Routine Thoracic myelopathy History of multiple sclerosis (HCC) 1 Occurrences starting 09/15/2023 until 10/14/2024 [facility] Work Phone: Comment on above: 1 Occurrences starting 09/15/2023 until 10/14/2024 XR Thoracic spine AP and Lateral and Swimmers XR THORACIC GENERAL 3V AP/LAT/SWIMMERS Radiology Routine Thoracic myelopathy History of multiple sclerosis (HCC) 09/16/2023 11:27 AM EDT [facility] Work Phone: [facility] Immunizations Immunization Date Immunization Notes Care Provider Fa bert 04-01-2022 influenza, seasonal, injectable Dr. Tom Sherman Work Phone: [facility] Work Phone: 04-01-2022 influenza virus vaccine, unspecified formulation Bill Woods PA-C Work Phone: [facility] 11-03-2021 COVID-19 vaccine, ag e 12+ yr (PFIZER-BIONTECH - PURPLE TOP) Lisa Taylor [facility] 08-16-2021 influenza, injectable,quadrivalent , preservative free, pediatric Dr. Tom Sherman Work Phone: [facility] Work Phone: 12-11-2020 Covid ([employer]ino [employer]) Dr. Tom Sherman Work Phone: [facility] Work Phone: 11-25-[address] Tom Sherman Work Phone: [facility] Work Phone: 11-25-2020 influenza, seasonal, injectable Lisa Taylor [facility] 12-21-2019 influenza, injectabl e, quadrivalent, contains preservative Lisa [facility] 12-20-[address] Tom Sherman Work Phone: [facility] Work Phone: 12-20-2019 influenza, seasonal, injectable Lisa Taylor [facility] 04-05-2019 influenza, injectabl e, quadrivalent, contains preservative Lisa Taylor [facility] 01-21-2018 influenza, injectabl e, quadrivalent, preservative free Lisa Taylor [facility] 01-02-2017 influenza, injectabl e, quadrivalent, contains preservative Lisa [facility] 12-15-[address] Tom Sherman Work Phone: [facility] Work Phone: 12-15-2016 influenza, seasonal, injectable Lisa Taylor [facility] 12-20-[address] Tom Sherman Work Phone: [facility] Work Phone: 12-20-2015 influenza, seasonal, injectable Lisa [facility] 12-10-2015 influenza, seasonal, injectable Lisa Taylor [facility] 12-26-[address] Tom Sherman Work Phone: [facility] Work Phone: 12-26-2014 influenza, seasonal, injectable Lisa [facility] 02-25-2013 pneumococcal polysaccharide vaccine, [address] [facility] 02-25-[address] Aly Sherman Work Phone: [facility] Work Phone: 02-25-2013 pneumococcal vaccine , unspecified formulation Dr. Tom Sherman Work Phone: [facility] Work Phone: NEGATED: Highlighted row has not occurred!01-21-2024 influenza, high dose seasonal, preservative-free Chloe Mackenzie MD Work Phone: [facility] Comment on above: Deferred: Patient Re fused NEGATED: Highlighted row has not occurred!01-21-2024 pneumococcal conjugate (PCV20) vaccine, 20 valent (PREVNAR 20) Chloe Mackenzie MD Work Phone: [facility] Comment on above: Deferred: Patient Re fused Payers Date Payer Category Payer Self-pay [id number] 2020 Medicaid [facility] MEDICAID MYC ARE [facility] MEDICAID [id number] 2020-Present [phone] [address] [place] [address] Medicaid [id number] 2020 Medicaid [id number] 2020 Unknown [id number] 2018 Medicare [id number] 2018 Medicare (Managed Care) [facility] DUAL COMPLETE HMO POS SNP Member Subscriber Plan / Payer (Effective 2018-Present) Name: Elo Gray Relation to Subscriber: Self Name: Elo Gray Payer ID: [id number] (NAIC) Group ID: [id number] Type: Medicare Address: [place] [id number] 2018 Private Health Insurance [id number] 2017 Medicare [id number] 2016 Medicaid [id number] 2007 Medicare [id number] 1955 Unknown [id number]. 693 1954 Unknown [id number]. 651 Medicare [id number] Medicare [id number] Unknown [id number]. 283 Unknown [id number] Unknown [id number] 2.16.840.1.223521.3.579.2. 462 Unknown [id number] 2.16.840.1.249215.3.579.2. 462 Unknown [id number] 2.16.840.1.683316.3.579.2. 462 Unknown [id number] 2..840.1.351028.3.579.2. 462 Unknown [id number] 2..840.1.487922.3.579.2. 462 Unknown [id number] 2.840.1.286215.3.579.2. 462 Unknown [id number] 2.840.1.273767.3.579.2. 462 Unknown [id number] 2.840.1.153148.3.579.2. 462 Unknown [id number] 2.840.1.386558.3.579.2. 462 Unknown [id number] 2.840.1.189360.3.579.2. 462 Unknown [id number] 2.840.1.057417.3.579.2. 462 Unknown [id number] 2.840.1.857573.3.579.2. 462 Unknown [id number] 2.840.1.307570.3.579.2. 462 Unknown [id number] 2.840.1.409788.3.579.2. 462 Unknown [id number] .840.1.362690.3.579.2. 462 Unknown [id number] 2.840.1.182056.3.579.2. 462 Unknown [id number] 2.840.1.869459.3.579.2. 462 Unknown [id number] 2.840.1.737405.3.579.2. 462 Unknown [id number] 2.840.1.545252.3.579.2. 462 Unknown [id number] 2.16.840.1.931731.3.579.2. 462 Unknown [id number] 2.16.840.1.924174.3.579.2. 462 Unknown [id number] 2.16.840.1.254158.3.579.2. 462 Unknown [id number] 2.16.840.1.604823.3.579.2. 462 Unknown [id number] 2.16.840.1.567388.3.579.2. 462 Unknown [id number] 2.16.840.1.615633.3.579.2. 462 Unknown [id number] 2.16.840.1.957445.3.579.2. 462 Unknown [id number] 2.16.840.1.349389.3.579.2. 462 Unknown [id number] 2.16.840.1.677698.3.579.2. 462 Unknown [id number] 2.16.840.1.330453.3.579.2. 462 Unknown [id number] 2.16.840.1.206686.3.579.2. 462 Unknown [id number] 2.16.840.1.097111.3.579.2. 462 Unknown [id number] 2.16.840.1.046115.3.579.2. 462 Unknown [id number] 2.16840.1.381585.3.579.2. 462 Unknown [id number] 2.16840.1.152580.3.579.2. 462 Social History Date Type Detail Facility Start: 07-27-2017 End: 04-02-2022 Tobacco smoking status KSIS Unknown if ever smoked [facility] Start: 1955 Sex Assigned At Not on file [facility] Start: 06-15-2021 Heavy tobacco smoker (finding) [facility] Start: 1955 Sex Assigned At Female [facility] Vamsi Rocío Start: 08-28-2020 Rare [facility] Work Phone: Start: 08-14-2020 None [facility] Work Phone: Start: 08-28-2020 Homeless [facility] Work Phone: Start: 08-30-2020 Cigarettes [facility] Work Phone: Start: 01-04-1973 End: 02-18-2024 Tobacco smoking status NHIS Smokes tobacco daily [facility] Start: 01-04-1973 End: 12-27-2023 History of tobacco use Cigarette Smoker [facility] Start: 10-15-2017 End: 09-03-2022 Cigarettes smoked current (pack per day) - Reported 0.5 [facility] Start: 10-15-2017 End: 02-18-2024 Tobacco use and exposure Smokeless tobacco non-user [facility] Start: 03-28-2020 End: 12-10-2022 Alcohol intake Current non-drinker of alcohol (finding) [facility] Start: 10-15-2017 End: 02-11-2022 Tobacco Comment Less than 10 [facility] Start: 09-01-2021 End: 02-11-2022 Exposure to SARS-CoV-2 (event) Not sure [facility] Start: 10-22-2021 History SDOH Financial 4 [facility] Start: 10-22-2021 History SDOH Food Worry 1 [facility] Start: 10-22-2021 History SDOH Transport Med 2 [facility] Start: 09-03-2022 End: 11-05-2022 Tobacco use panel [facility] How hard is it for y ou to pay for the very basics like food, housing, medical care, and heating Not very hard [facility] (I/We) worried ridge er (my/our) food would run out before (I/we) got money to buy more. Never true [facility] In the past 12 month s, has lack of transportation kept you from medical appointments or from getting medications? No [facility] In the past 12 month s, was there a time when you were not able to pay the mortgage or rent on time? No [facility] Start: 01-06-2023 Gender identity Identifies as female gender (finding) [facility] Start: 01-04-2024 Tobacco smoking status NHIS Ex-smoker [facility] Start: 01-04-1973 End: 12-27-2023 History of tobacco use Current smoker [facility] Start: 01-05-2024 End: 10-25-2024 Alcoholic beverage intake Current drinker of alcohol (finding) [facility] Start: 01-04-2024 Alcohol Comment 1-2 times per year flavored beer [facility] Medical Equipment Procedure Code Equipment Code Equipment Origin al Text Equipment Identifier Dates FDA Start: 07-17-2014 FDA Start: 07-17-2014 Reveal LINQ loop recorder FDA Start: 07-17-2014 Blood Sugar Diagnostic (Accu-Chek Ada Plus Test Strp) strip Start: 08-10-2020 Reveal LINQ loop recorder FDA Start: 07-17-2014 Blood Sugar Diagnostic (Accu-Chek Ada Plus Test Strp) strip Start: 08-10-2020 Reveal LINQ loop recorder FDA Start: 07-17-2014 Blood Sugar Diagnostic (Accu-Chek Ada Plus Test Strp) strip Start: 08-10-2020 End: 11-20-2021 Reveal LINQ loop recorder FDA Start: 07-17-2014 Blood Sugar Diagnostic (Accu-Chek Ada Plus Test Strp) strip Start: 08-10-2020 End: 11-20-2021 Reveal LINQ loop recorder FDA Start: 07-17-2014 Blood Sugar Diagnostic (Accu-Chek Ada Plus Test Strp) strip Start: 08-10-2020 End: 11-20-2021 [id number], [id number] Start: 08-14-2022 Comment on above: Uses 4 per day with insulin injection. Goals Date Patient Goal Desired Activity /State Functional Status Date Assessment Result Facility 02-22-2024 Are you deaf, or do you have serious difficulty hearing No 02/22/2024 3:24 PM EDMohit Mckeon, RN No [facility] 02-22-2024 Are you blind, or do you have serious difficulty seeing, even when wearing glasses No 02/22/2024 3:24 PM EDMohit Mckeon, RN No [facility] 02-22-2024 Do you have serious difficulty walking or climbing stairs No 02/22/2024 3:24 PM EDT Mohit Hamlin, RN No [facility] 02-22-2024 Do you have difficul ty dressing or bathing No 02/22/2024 3:24 PM EDT Mohit Hamlin, RN No [facility] 02-22-2024 Because of a physica l, mental, or emotional condition, do you have difficulty doing errands alone such as visiting a physician's office or shopping No 02/22/2024 3:24 PM EDMohit Mckeon, RN No [facility] 11-20-2021 Functional status Ambulates;Beds brittani [employer] [facility] Work Phone: 05-08-2021 Functional status Ambulates;Bath room Privilege [facility] Work Phone: Mental Status Date Assessment Result Facility 02-22-2024 Because of a physica l, mental, or emotional condition, do you have serious difficulty concentrating, remembering, or making decisions No 02/22/2024 3:24 PM EDMohit Mckeon, RN No [facility] 04-02-2022 Cognitive function Awake;Alert;A ppropriate;Fol lows Commands [facility] Work Phone: 02-07-2022 Cognitive function Level Of Cons ciousness Awake;Alert;Appropriate;Fol lows Commands [facility] Work Phone: 11-20-2021 Cognitive function Voice/Name [facility] Work Phone: 11-20-2021 Cognitive function Appropriate;Cooperativ e [facility] Work Phone: 11-16-2021 Cognitive function Voice/Name [facility] Work Phone: 10-07-2021 Cognitive function Level Of Cons ciousness Awake;Alert;Appropriate;Fol lows Commands [facility] Work Phone: 08-21-2021 Cognitive function Awake;Alert;Appropriat e [facility] Work Phone: 06-22-2021 Cognitive function Voice/Name [facility] Work Phone: 05-16-2021 Cognitive function Awake;Alert;A ppropriate;Fol lows Commands [facility] Work Phone: 05-11-2021 Cognitive function Awake;Alert;A ppropriate;Fol lows Commands [facility] Work Phone: 05-08-2021 Cognitive function Voice/Name [facility] Work Phone: 04-24-2021 Cognitive function Awake;Alert;A ppropriate;Fol lows Commands [facility] Work Phone: 04-19-2021 Cognitive function Awake;Alert;A ppropriate;Fol lows Commands [facility] Work Phone: Clinical Notes 02-28-2015 to 11-16-2024 Bill Woods PA-C - 11/16/2024 2:30 PM EDTTelephone Encounter - Heather Davis MD - 11/15/2024 9:02 AM EDTTelephone Encounter - Heather Davis MD - 11/15/2024 9:02 AM EDTPatient Instructions Note Date & Type Note Facility 11-16-2024 History of Present illness Narrative Images from the original note were not included. [facility] FOR MULTIPLE SCLEROSIS FOLLOWUP/ESTABLISHED PATIENT VIRTUAL VISIT PRINCIPAL NEUROLOGIC DIAGNOSIS: Multiple sclerosis DISEASE SUMMARY Date of onset: 12/1998 Date of diagnosis of MS: 1998 Disease course at onset: Progressive with relapses Current disease course: Progressive with relapses Previous disease therapies: Glatiramer acetate 2002, [id number], [id number] Fingolimod 07/2014-04/2016 (switched because of heart issues - had heart attack) Teriflunomide 7 mg 04/2016-10/2016 Prednisone x 10 days 03/2017 IVMP 01/25/17 x 1 dose Teriflunomide 14 mg daily Kesimpta (started 01/2022- stopped due to concerns of facial nodules/excoriation) Current disease therapy: None Most recent MRI brain: 08/12/24 Most recent MRI cervical spine: 08/12/24 Most recent MRI thoracic spine: 08/22/22 CSF: 1998 JCV serology result and date: NA CHIEF COMPLAINT: Follow-up off MS disease modifying therapy INTERVAL HISTORY: Usual treating team: Pako/Carlos I have communicated my name and active licensure. The patient's identity and physical location were verified at the time of this visit. Either the patient or their legal airport representative has been informed of the risks and benefits of -- and alternatives to -- treatment through a remote evaluation and consents to proceed with the evaluation remotely. Today's visit is being completed virtually; pt consented. Accompanied by self. Last seen 10/12/24. Currently not on DMT. I have a bump on my back - just appeared about 3 weeks ago Saw neurosurgery and x-rays ordered - suspected to be muscular contraction Was using 3 lidocaine patches per day PT just tried K tape and that has been helpful so far Repeat neuropsych scheduled for 11/23/24 Just increased Mounjaro this week to 15 mg Taking gabapentin 100 mg qhs Has only gone to [facility] 3 times due to back pain Sister coming up on Nov 30 (family reunion)- excited about this OT and PT and speech services coming to house - helpful REVIEW OF SYSTEMS: Mood: PHQ9 responses reviewed and appear below Pain:reviewed on nursing intake documentation Fatigue: mildly increased - benefit from Provigil Neuro-QoL Functions (higher=better functioning) Flowsheet Row [facility] from 10/12/2024 in Neurology [facility] from 07/28/2024 in Neurology [facility] from 12/24/2023 in [facility] Upper Extremity Domain T Score 36 38 34 Lower Extremity Domain T Score 39 37 37 Cognitive Function Domain T Score 34 26 35 Positive Affect Well Being T Score -- -- -- Ability To Participate In Social Roles T Score 42 41 42 Satisfaction With Social Roles T Score 41 42 43 Neuro-QoL Symptoms (higher=worse symptoms) Flowsheet Row [facility] from 10/12/2024 in Neurology [facility] from 07/28/2024 in Neurology [facility] from 12/24/2023 in [facility] Sleep Domain T Score 69 70 68 Fatigue Domain T Score 58 66 58 Anxiety Domain T Score 56 57 56 Depression Domain T Score 55 59 54 Stigma Domain T Score 63 61 63 Emotional Behavior Dyscontrol T Score -- -- -- PAST HISTORY was reviewed and updated: PAST MEDICAL HISTORY Diagnosis Date Anxiety and depression Atrial fibrillation (HCC) Dr. Butler following- pt states blood clot in heart Cardiomyopathy (HCC) Cervical myelopathy (HCC) CHF (congestive heart failure) (HCC) Cognitive impairment on aricept Colitis COPD (chronic obstructive pulmonary disease) (HCC) Diabetes (HCC) Dr. Flores following Dyslipidemia Full dentures GERD (gastroesophageal reflux disease) GI bleed 2020 History of loop recorder pt reports battery is PECHANGA (hard of hearing) Hypertension controlled with meds IBS (irritable bowel syndrome) Multiple sclerosis (HCC) Dr. Woods Myocardial infarct, old 03/2016 Obesity Pain management Pancreatitis ([facility]) [address] Greenfield RLS (restless legs syndrome) Sleep apnea no cpap since loosing 100lbs Tobacco dependence quit 12/26 Urinary incontinence Wears glasses PAST SURGICAL HISTORY Procedure Laterality Date BACK SURGERY HX lower x3 CARPAL TUNNEL lt and rt COLONOSCOPY FLX DX W/COLLJ SPEC WHEN PFRMD 10/12/2014 Colonoscopy inpt [facility] COLONOSCOPY FLX DX W/COLLJ SPEC WHEN PFRMD 02/28/2015 Colonoscopy EYE SURGERY HX Bilateral cataract FINGER SURGERY HX thumb reconstructed KNEE SURGERY HX lt x2 PANCREAS PAST SURGICAL HISTORY OF partial amputation of big toe PAST SURGICAL HISTORY OF Left 01/25/2015 great toe removal PAST SURGICAL HISTORY OF Bilateral 08/2022 C3 and C6 nerve ablasions PAST SURGICAL HISTORY OF calcium removed from breast TONSILLECTOMY HX TUBAL LIGATION HX MEDICATIONS and ALLERGIES were reviewed and updated. SOCIAL HISTORY was reviewed and updated: Current living situation: At home Current vocational status: On disabiltiy EXAM: General Appearance: well appearing, in no acute distress Mental status evaluation during the interview and examination showed normal level of consciousness, orientation, language, memory, praxis, and higher intellectual function Affect: Normal Speech: normal RESULTS: Monitoring labs: CBC + Diff Component Value Date WBC 6.41 07/29/2024 HB 11.1 (L) 07/29/2024 HCT 35.2 (L) 07/29/2024 PLT 260 07/29/2024 ABSLYMPH 1.50 07/29/2024 CMP Component Value Date AST 9 (L) 07/29/2024 GLUC 171 (H) 07/29/2024 BUN 20 07/29/2024 CREAT 0.64 07/29/2024 NA 135 (L) 07/29/2024 K 3.8 07/29/2024 CHLOR 102 07/29/2024 ALT 26 07/29/2024 MRI brain: No new brain MRI to review ASSESSMENT/PLAN: Elo Gray is a 68 year old female with multiple sclerosis. Patient is not currently DMT. She is following with PT, neurosurgery and pain management for back pain. Neuropsych testing scheduled for 11/23/24. Will follow-up after or sooner if needed. Continue to follow with specialists and PCP as directed. I spent a total of 30 minutes on the date of the service which included preparing to see the patient, [id number] patient care, completing clinical documentation, obtaining and/or reviewing separately obtained history, counseling and educating the patient/family/caregiver, ordering medications, tests, or procedures, and communicating results to the patient/family/caregiver. Bill Woods PA-C documented in this encounter [facility] 11-16-2024 Note [facility] 11-15-2024 Telephone encounter Note Patient called. Had received #18 Percocet back in July. Hurting and procedure is not scheduled until November. No SE reported. Patient would like prn Percocet - has used the 18 tablets. Script sent. Must last at least 90 days with prn use. Not for scheduled use. bhm [facility] 11-15-2024 Miscellaneous Notes Patient called. Had received #18 Percocet back in July. Hurting and procedure is not scheduled until November. No SE reported. Patient would like prn Percocet - has used the 18 tablets. Script sent. Must last at least 90 days with prn use. Not for scheduled use. bhm documented in this encounter [facility] 11-03-2024 Telephone encounter Note Images from the original note were not included. Pt asked for Zanaflex refill. This nurse updated Rosa Flores CNP does not fill for this. Updated pt to contact pharmacy and provider who ordered this in the past for refills/new prescription as needed. Pt asking to increase dose of Mounjaro from 12.5 mg to 15 mg once weekly. Most recent Endocrinology visit: Last encounter Visit on 09/21/2024 (with Rosa Trujillo Cioce) 11/05/2022 in [facility] with CIOCE, ROSA C for Type 2 diabetes mellitus with other specified complication, without long-term current use of insulin (HCC) 02/11/2023 in [facility] with CIOCE, ROSA C for Controlled type 2 diabetes mellitus without complication, 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) 08/19/2023 in [facility] with CIOCE, ROSA C for Type 2 diabetes mellitus with other specified complication, without long-term current use of insulin (HCC) 02/24/2024 in [facility] with CIOCE, ROSA C for Controlled type 2 diabetes mellitus without complication, unspecified whether prison insulin use (HCC) 05/26/2024 in [facility] with CIOCE, ROSA C for Controlled type 2 diabetes mellitus without complication, 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) 09/21/2024 in [facility] with CIOCE, ROSA C for Controlled type 2 diabetes mellitus without complication, 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) Upcoming Endocrinology Appointments - Next 365 Days Visit Type Date Time Department EST RICHARD PATIENT 03/29/2025 9:15 AM [facility] Requested Prescriptions No prescriptions requested or ordered in this encounter Latest Ref Rng & Units 07/29/2024 01/05/2024 11/10/2023 Hemoglobin A1C Hemoglobin A1C 4.3 - 5.6 % 6.3 6.8 7.2 TSH: None on file in the last 12 months Free T3: None on file in the last 12 months Free T4: None on file in the last 12 months Thyroglobulin: None on file in the last 12 months Vitamin D: None on file in the last 12 months Latest Ref Rng & Units 07/29/2024 02/22/2024 02/21/2024 Hematocrit Hematocrit 36.0 - 46.0 % 35.2 33.0 33.2 Latest Ref Rng & Units 07/29/2024 02/22/2024 02/21/2024 Creatinine Creatinine 0.58 - 0.96 mg/dL 0.64 0.48 0.54 Latest Ref Rng & Units 07/29/2024 02/22/2024 02/21/2024 eGFR EGFR >=60 mL/min/1.73m 96 103 100 Latest Ref Rng & Units 07/29/2024 02/22/2024 02/21/2024 Potassium Potassium 3.7 - 5.1 mmol/L 3.8 4.0 4.1 Testosterone: None on file in the last 12 months IGF: None on file in the last 12 months Prolactin: None on file in the last 12 months Please advise. [facility] 11-03-2024 Miscellaneous Notes Images from the original note were not included. Pt asked for Zanaflex refill. This nurse updated Rosa Flores CNP does not fill for this. Updated pt to contact pharmacy and provider who ordered this in the past for refills/new prescription as needed. Pt asking to increase dose of Mounjaro from 12.5 mg to 15 mg once weekly. Most recent Endocrinology visit: Last encounter Visit on 09/21/2024 (with Rosa Flores) 11/05/2022 in [facility] with CIOCE, ROSA C for Type 2 diabetes mellitus with other specified complication, without long-term current use of insulin (HCC) 02/11/2023 in [facility] with CIOCE, ROSA C for Controlled type 2 diabetes mellitus without complication, unspecified whether prison insulin use (HCC) 08/19/2023 in [facility] with CIOCE, ROSA C for Type 2 diabetes mellitus with other specified complication, without long-term current use of insulin (HCC) 02/24/2024 in [facility] with CIOCE, ROSA C for Controlled type 2 diabetes mellitus without complication, 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) 05/26/2024 in [facility] with ROSA FLORES C for Controlled type 2 diabetes mellitus without complication, 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) 09/21/2024 [facility] with ROSA FLORES C for Controlled type 2 diabetes mellitus without complication, 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) Upcoming Endocrinology Appointments - Next 365 Days Visit Type Date Time Department EST RICHARD PATIENT 03/29/2025 9:15 AM [facility] Requested Prescriptions No prescriptions requested or ordered in this encounter Latest Ref Rng & Units 07/29/2024 01/05/2024 11/10/2023 Hemoglobin A1C Hemoglobin A1C 4.3 - 5.6 % 6.3 6.8 7.2 TSH: None on file in the last 12 months Free T3: None on file in the last 12 months Free T4: None on file in the last 12 months Thyroglobulin: None on file in the last 12 months Vitamin D: None on file in the last 12 months Latest Ref Rng & Units 07/29/2024 02/22/2024 02/21/2024 Hematocrit Hematocrit 36.0 - 46.0 % 35.2 33.0 33.2 Latest Ref Rng & Units 07/29/2024 02/22/2024 02/21/2024 Creatinine Creatinine 0.58 - 0.96 mg/dL 0.64 0.48 0.54 Latest Ref Rng & Units 07/29/2024 02/22/2024 02/21/2024 eGFR EGFR >=60 mL/min/1.73m 96 103 100 Latest Ref Rng & Units 07/29/2024 02/22/2024 02/21/2024 Potassium Potassium 3.7 - 5.1 mmol/L 3.8 4.0 4.1 Testosterone: None on file in the last 12 months IGF: None on file in the last 12 months Prolactin: None on file in the last 12 months Please advise. documented in this encounter [facility] 10-27-2024 Telephone encounter Note The following approved medication requests have been transmitted electronically. Requested Prescriptions Signed Prescriptions Disp Refills donepezil (ARICEPT) 10 mg tablet 180 tablet 11 Sig: Take 2 tablets by mouth once daily. Authorizing Provider: BILL WOODS PA-C [facility] 10-27-2024 Miscellaneous Notes The following approved medication requests have been transmitted electronically. Requested Prescriptions Signed Prescriptions Disp Refills donepezil (ARICEPT) 10 mg tablet 180 tablet 11 Sig: Take 2 tablets by mouth once daily. Authorizing Provider: BILL WOODS PA-C Source : mychart from patient requesting refill. Delivery : e-script Requested Prescriptions Pending Prescriptions Disp Refills donepezil (ARICEPT) 10 mg tablet [Pharmacy Med Name: donepezil 10 mg tablet] 180 tablet 11 Sig: Take 2 tablets by mouth once daily. DX : Patient last seen 10/12/24 Next Appointment : Elizabeth Pearce documented in this encounter [facility] 10-26-2024 Telephone encounter Note Source : mychart from patient requesting refill. Delivery : e-script Requested Prescriptions Pending Prescriptions Disp Refills donepezil (ARICEPT) 10 mg tablet [Pharmacy Med Name: donepezil 10 mg tablet] 180 tablet 11 Sig: Take 2 tablets by mouth once daily. DX : Patient last seen 10/12/24 Next Appointment : Elizabeth Pearce [facility] 10-25-2024 Note [facility] Chloe cervantes 10-25-2024 History of Present illness Narrative Images from the original note were not included. [facility] Established Patient Consultation No referring provider defined for this encounter. CC: S/p T10-T11 Laminectomy followed by L3-4 Laminectomy Subjective History of Present Illness: Mrs. Gray is a pleasant 68yo lady who was referred to us by Dr. Duarte due to concerns of thoracic myelopathy. She has a PMH significant for MS and smoking and DMII. She has a history of chronic lower back pain and more recently started noticing worsening balance and some weakness and heaviness in her legs when walking longer distances. She is ambulatory at baseline with a walker. Hx of C4-6 lami fusion and hx of L4-5 and L5-1 decompression in 2016. Denies upper extremity symptoms. On , prior hx of [place]. Smokes half a pack a day of cigarettes. Patient does not work and is independent at home. Update 02/11/2024: Mrs. Gray returns today for a postop follow up. She refers that her lower extremities fell stronger and that her pain has improved. She is having PT daily at the nurse facility she is in. Denies other symptoms. Updates 02/18/2024: She is s/p T10-T11 and L3-L4 laminectomy 01/20/24 and presented our clinic today with wound dehiscence and signs of infection. She will be admitted for I&D tomorrow. Updates 03/08/2024: She returns today for a postop follow up. Denies any symptoms. Updates 08/04/2024: Kendra is a 68-year-old female presenting for follow-up after recent pancreatic surgery and wound washout. Kendra underwent pancreatic surgery on January 19 to remove a stone blocking the entrance to the pancreas. She reports a history of pancreatitis. On February 18, she had a wound washout procedure. She reports improvement in her walking and attributes this to the care she has received. She also mentions experiencing significant sciatica pain and is currently participating in physical therapy. Past Diagnostic Results: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 DMT. Last Kesimpta dose about 1 year ago. Brain and c-spine MRI reviewed from 08/12/24 and appears stable. Will continue to monitor off DMT at this time given ongoing infections and recurrence of facial rash. She is undergoing testing for UTI given increase in symptoms over the last week resulting in MRCP being held yesterday. She has also undergone an increase in stressors in personal life recently and is working with mental health providers (psychiatry/therapist). She started gabapentin about 1 week ago at night - continue to monitor. Encouraged follow-up with medical providers (PCP, endocrinology, urology, cardiology, GI, etc) as directed. She continued PT, OT, speech therapy with benefit and will schedule neuropsych testing once infections are ruled out. I spent a total of 30 minutes on the date of the service which included preparing to see the patient, pkdo-ai-pytt patient care, completing clinical documentation, obtaining and/or reviewing separately obtained history, performing a medically appropriate examination, counseling and educating the patient/family/caregiver, ordering medications, tests, or procedures, and communicating results to the patient/family/caregiver. Bill Woods PA-C documented in this encounter [facility] 10-12-2024 Note [facility] 10-10-2024 Note Date of Procedure 10/10/2024. Payroll Services Analyst Information Broom Stitcher: BP. Start time: 3:40 PM. Stop time: 3:47 PM. Quality Right Eye Borderline. Left Eye Borderline. NFL Interpretation Right Eye Diffuse loss. Left Eye Diffuse loss. Ganglion Cell Layer Thickness Right Eye Diffuse loss. Left Eye Diffuse loss. Interval Change Right Eye Stable. Left Eye Stable. [facility] 10-10-2024 Note [facility] 10-10-2024 History of Present illness Narrative 1. MS (multiple sclerosis) (HCC) (Primary) 2. Optic nerve atrophy, bilateral OCT nerve: 10/10/24, +diffuse GCA and RNFL loss- stable +stable pallor (-) optic neuritis Vision stable 3. RPE mottling of macula Minimal and little to no visual significance Educated pt Monitor +smoker 4. Vitreous degeneration of both eyes Stable Warned patient about signs/symptoms of retinal pathology and to call immediately with any sudden increase in flashes/floaters or curtain/veil over vision 5. Pseudophakia 6. Refractive error 7. Presbyopia Continue with current glasses 8. Dry eye syndrome of bilateral lacrimal glands Well controlled with FML Educated pt on risk of long-term steroid use and recommended minimal use (few times per week but no more than once daily without follow-up first) 9. Type 2 diabetes without retinopathy HbA1c reviewed Educated patient to continue care and current treatment regimen with primary care doctor and/or machine filler to maintain optimum levels as they are important to avoid ocular complications Encouraged patient to call the office immediately with any changes to vision or visual concerns Follow-up in 7 months for complete with OCT mac/nerve and 30-2 Keith Squires, OD October 10, 2024 4:03 PM documented in this encounter [facility] 10-10-2024 Note Date of Procedure 10/10/2024. Payroll Services Analyst Information Broom Stitcher: BP. Start time: 3:40 PM. Stop time: 3:42 PM. OCT Macula Interpretation Right Eye Normal without fluid. Left Eye Normal without fluid. Interval Change Right Eye Stable. Left Eye Stable. [facility] 10-06-[address] Webb e-prescribed Ms. Gray's refill for lidocaine patches to the pharmacy on 10/05/24. [facility] 10-06-[address] Webb e-prescribed Ms. Gray's refill for lidocaine patches to the pharmacy on 10/05/24. Ms. Gray's refill request will be sent to Dr. Webb in a separate refill encounter. documented in this encounter [facility] 10-05-2024 Telephone encounter Note Refilled. If prefers 90 day supply, let me know and can change [facility] 10-05-2024 Miscellaneous Notes Refilled. If prefers 90 day supply, let me know and can change Patient last seen on 08/05/24 Last refill on 07/12/24 Patient phones requesting refills as follows: Requested Prescriptions Pending Prescriptions Disp Refills lidocaine (LIDODERM) 5 % 60 patch 2 Sig: Apply 1-2 patches as directed once daily. TO AFFECTED AREA. REMOVE AFTER 12 HOURS. Please review and advise. Leandra Maguire documented in this encounter [facility] 10-04-2024 Telephone encounter Note Patient last seen on 08/05/24 Last refill on 07/12/24 Patient phones requesting refills as follows: Requested Prescriptions Pending Prescriptions Disp Refills lidocaine (LIDODERM) 5 % 60 patch 2 Sig: Apply 1-2 patches as directed once daily. TO AFFECTED AREA. REMOVE AFTER 12 HOURS. Please review and advise. Leandra Maguire [facility] 10-04-2024 Telephone encounter Note Ms. Gray's refill request will be sent to Dr. Webb in a separate refill encounter. [facility] 09-21-2024 Note [facility] 09-21-2024 History of Present illness Narrative DIABETES CARE AND EDUCATION VISIT Location: [place] Type of visit: In person individual PATIENT'S MAIN CONCERN TODAY: I just need help with getting this Janay on my phone Support person present for education today: none Cognitive ability: Alert and oriented Motivation to learn: Interested Learning barriers identified by educator: none Method of instruction: written, verbal, and demonstration DIABETES FINDINGS: Monitoring: Reviewed use of the Libre2 janice, patient was already attached to our account by PSS -Monitoring: CGM adhesion techniques, CGM basics & daily use, CGM insertion steps, CGM type: Libre2, and compression lows HANDOUTS: Healthy You: Survival Skills and Healthy You: Planning Healthy Meals LEARNING RESPONSE: Monitoring glucose: Demonstrated understanding/competency today or at previous visit POSSIBLE FUTURE TOPICS: 1. DIABETES CARE AND EDUCATION PLAN: Education completed and annual diabetes education follow-up visit recommended Time Spent (Minutes): 15 This visit note will be communicated to the healthcare provider via access to shared medical record. SIGNATURE: Aubree Hylton RN PATIENT NAME: Elo Gray DATE: September 21, 2024 TIME: 8:15 AM documented in this encounter [facility] 09-21-2024 Instructions Rosa Flores APRN.CNP - 09/21/2024 7:43 AM EDT SLIDING SCALE #1 -- USE WITH PRE MEAL BLOOD SUGARS ONLY Sliding Scale Insulin Dosing Sliding Scale 1 (1 unit for every 50 mg/dL > 150 mg/dL) SUPPLEMENTAL INSULIN If Blood Glucose (mg/dL) is < 150 Give 0 units 151-200 Give 1 unit 201-250 Give 2 units 251-300 Give 3 units 301-350 Give 4 units 351-400 Give 5 units >400 Give 6 units, call physician if blood glucose does not improve. documented in this encounter [facility] 09-21-2024 Note HNO ID: [id number] Author: AMY CAMPBELL MA Service: ? Author Type: Tube Turner Type: Progress Notes Filed: 09/21/2024 08:31 Note Text: [facility] 09-21-2024 History of Present illness Narrative Images from the original note were not included. Images from the original note were not included. OFFICE VISIT PROGRESS NOTE CC Elo Gray is a 68 year old who presents today for blood sugar review, dm med dose review, adjust. HPI Diagnosed with diabetes mellitus type II, ~ 1999 Last endocrine OV 05/26/2024 Some elements copied from my note 05/26/2024 which have been updated where appropriate, and all reflect current medical decision making from date of this visit. HPI 05/26/2024 Sts has the 'crud' Body aches, fatigue Started on Thursday night Had back surgery - 01/19 lumbar/thoracic surgery Had infected incision Had to have second surgery 02/18 HPI : 08/24/2024 Patient had pancreatitis, then sts 'stone' was found at entrance of pancreas Had stent placed Blood sugars 'have been crazy' HPI 09/21/2024 Was taken actos and farxiga by PCP PCP increased her GLP1 (2 mos) Had stent placed in pancreas (July) CURRENT DM MEDS Humalog SS #1 MOUNJARO 12.5 mg weekly injection SMBG Type of Monitor: Other FREESTYLE JANAY CGM Frequency of Monitorin times a day BG Values: Hypoglycemia: no Diet: none specific Exercise: PT 2 times per week DM REVIEW OF SYSTEMS Last Eye Exam : orbital MRI, at last eye exam, hx of optic neuritis, May 062024 - normal, new glasses Last Podiatry Exam: annual Cardiorespiratory: negative, denies chest pain, pressure Claudication: no Dyslipidemia: Yes, controlled on medication High Blood Pressure: Yes, controlled on medication CURRENT LABS Latest Ref Rng 01/05/2024 07/29/2024 Glucose 74 - 99 mg/dL 171 (H) BUN 7 - 21 mg/dL 20 Creatinine 0.58 - 0.96 mg/dL 0.64 Sodium 136 - 144 mmol/L 135 (L) Potassium 3.7 - 5.1 mmol/L 3.8 Chloride 98 - 107 mmol/L 102 CO2 22 - 30 mmol/L 27 Anion Gap 8 - 15 mmol/L 6 (L) eGFR >=60 mL/min/1.73m 96 Total Cholesterol, Nonfasting <200 mg/dL 134 Triglycerides, Nonfasting <150 mg/dL 64 HDL Cholesterol, Nonfasting >39 mg/dL 72 LDL Cholesterol Calculated, Nonfasting <100 mg/dL 49 Non HDL Cholesterol, Nonfasting <130 mg/dL 62 VLDL Cholesterol, Nonfasting <30 mg/dL 13 Total Chol/HDL Ratio, Nonfasting <5.10 mg/dL 1.86 LDL/HDL Ratio, Nonfasting <2.54 mg/dL 0.68 Creatinine, Ur Random (UCRR) 20.0 - 300.0 mg/dL 119.0 Albumin, Urine Random mg/L <12.0 Albumin/Creat Ratio <30 mg/g <10 Hemoglobin A1C 4.3 - 5.6 % 6.8 (H) 6.3 (H) Estimated Average Glucose mg/dL 148 134 Recent Labs 10/28/21 0139 10/28/21 0730 01/14/23 1106 06/24/23 1035 09/24/23 1007 11/10/23 0845 01/05/24 0832 01/20/24 1954 02/19/24 0604 02/20/24 0528 02/21/24 0944 02/22/24 0454 07/29/24 1501 ALT -- < > 9 < > 12 14 -- < > 8* 9* -- -- 26 AST -- < > 12* < > 16 14 -- < > 14 21 -- -- 9* UCRR -- -- -- -- -- -- -- -- -- -- -- -- 119.0 UALBR -- -- -- -- -- -- -- -- -- -- -- -- <12.0 UALBCR -- -- -- -- -- -- -- -- -- -- -- -- <10 TSH 1.393 -- -- -- -- -- -- -- -- -- -- -- -- TPROT -- < > 5.8* < > 6.3 6.1* -- < > 5.7* 5.4* -- -- 6.3 ALB -- < > 3.9 < > 4.2 3.7* -- < > 2.7* 2.5* -- -- 3.5* CA -- < > 10.1 < > 10.5* 9.7 10.4 < > 9.2 8.5 9.1 9.6 9.4 TBILI -- < > 0.3 < > 0.4 0.3 -- < > 0.2 0.2 -- -- 0.2 ALKPHOS -- < > 78 < > 92 89 -- < > 139* 116 -- -- 207* GLUC -- < > 171* < > 170* 142* 197* < > 178* 174* 101* 250* 171* BUN -- < > 19 < > 20 31* 21 < > 16 19 13 10 20 CREAT -- < > 0.63 < > 0.61 0.79 0.72 < > 0.61 0.64 0.54 0.48* 0.64 NA -- < > 137 < > 136 136 138 < > 138 137 139 139 135* K -- < > 4.5 < > 4.7 4.7 3.8 < > 4.0 3.9 4.1 4.0 3.8 CHLOR -- < > 103 < > 103 104 107 < > 109* 108* 108* 108* 102 CO2 -- < > 25 < > 21* 23 27 < > 24 23 26 25 27 ANION -- < > 9 < > 12 9 4* < > 5 6 5 6 6* EGFROTH -- < > 97 < > 98 82 91 < > 97 96 100 103 96 HBA1C -- < > 7.1* < > -- 7.2* 6.8* -- -- -- -- -- 6.3* B12 -- -- 324 -- >2,000* 1,047 -- -- -- -- -- -- -- < > = values in this interval not displayed. Recent Labs 10/28/21 0139 08/06/22 1059 01/14/23 1106 07/27/23 0932 09/24/23 1007 11/10/23 0845 01/05/24 0832 07/29/24 1501 TG 112 -- 78 62 -- 81 -- 64 CHOL 159 -- 109 131 -- 123 -- 134 HDL 69 -- 71 82 -- 74 -- 72 VLDL 22 -- 16 12 -- 16 -- 13 LDL 68 -- 22 37 -- 33 -- 49 FASTTIME 6 -- -- -- -- -- -- -- TCHDL 2.30 -- 1.54 1.60 -- 1.66 -- 1.86 LDLHDL 0.99 -- 0.31 0.45 -- 0.45 -- 0.68 NONHDL 90 -- 38 49 -- 49 -- 62 HBA1C -- < > 7.1* 6.7* -- 7.2* 6.8* 6.3* HBA0 -- -- 157 146 -- 160 148 134 B12 -- -- 324 -- >2,000* 1,047 -- -- < > = values in this interval not displayed. PAST MEDICAL HISTORY Diagnosis Date Anxiety and depression Atrial fibrillation ([facility]) Dr. Butler following- pt states blood clot in heart Cardiomyopathy ([facility]) Cervical myelopathy ([facility]) CHF (congestive heart failure) ([facility]) Cognitive impairment on aricept Colitis COPD (chronic obstructive pulmonary disease) ([facility]) Diabetes ([facility]) Dr. Flores following Dyslipidemia Full dentures GERD (gastroesophageal reflux disease) GI bleed 2020 History of loop recorder pt reports battery is [place]GA (hard of hearing) Hypertension controlled with meds IBS (irritable bowel syndrome) Multiple sclerosis ([facility]) Dr. Woods Myocardial infarct, old 03/2016 Obesity Pain management Pancreatitis ([facility]) [address] Greenfield RLS (restless legs syndrome) Sleep apnea no cpap since loosing 100lbs Tobacco dependence quit 12/26 Urinary incontinence Wears glasses PAST SURGICAL HISTORY Procedure Laterality Date BACK SURGERY HX lower x3 CARPAL TUNNEL lt and rt COLONOSCOPY FLX DX W/COLLJ SPEC WHEN PFRMD 10/12/2014 Colonoscopy inpt [facility] COLONOSCOPY FLX DX W/COLLJ SPEC WHEN PFRMD 02/28/2015 Colonoscopy EYE SURGERY HX Bilateral cataract FINGER SURGERY HX thumb reconstructed KNEE SURGERY HX lt x2 PAST SURGICAL HISTORY OF partial amputation of big toe PAST SURGICAL HISTORY OF Left 01/25/2015 great toe removal PAST SURGICAL HISTORY OF Bilateral 08/2022 C3 and C6 nerve ablasions PAST SURGICAL HISTORY OF calcium removed from breast TONSILLECTOMY HX TUBAL LIGATION HX FAMILY HISTORY Problem Relation Age of Onset No Ocular Disease Father Cancer Father lung No Ocular Disease Mother Cancer Mother pancreatic Multiple Sclerosis No Family History Social History Tobacco Use Smoking status: Every Day Current packs/day: 0.00 Average packs/day: 1 pack/day for 51.0 years (51.0 ttl pk-yrs) Types: Cigarettes Start date: 01/04/1973 Last attempt to quit: 12/27/2023 Years since quittin.6 Smokeless tobacco: Never Tobacco comments: Less than 10 Vaping Use Vaping status: Never Used Substance Use Topics Alcohol use: Yes Comment: 1-2 times per year flavored beer Drug use: No Current Outpatient Medications Medication Sig sulfamethoxazole-trimethoprim (BACTRIM DS) 800-160 mg per tablet Take 1 tablet by mouth two times a day for 10 days. oxyCODONE-acetaminophen (PERCOCET) 5-325 mg tablet 1/2-1 tab po daily prn pain - 18 tablets total modafinil (PROVIGIL) 200 mg tablet Take 1 tablet by mouth once daily for 180 days. acetaminophen (TYLENOL EXTRA STRENGTH) 500 mg tablet Take 2 tablets by mouth every 8 hours as needed for pain. FOR PAIN. [START ON 09/23/2024] tiZANidine (ZANAFLEX) 2 mg tablet 2 mg po qam and 2-4 mg qhs prn for pain control Patient should start on September 23, 2024. donepezil (ARICEPT) 10 mg tablet Take 2 tablets by mouth once daily. lidocaine (LIDODERM) 5 % Apply 1-2 Patches as directed once daily. TO AFFECTED AREA. REMOVE AFTER 12 HOURS. tirzepatide (MOUNJARO) 10 mg/0.5 mL pen injector Inject 10 mg subcutaneously one time a week. mupirocin (BACTROBAN) 2 % ointment Apply to nostrils twice daily x 5 days once per month. isosorbide mononitrate ER (IMDUR) 30 mg 24 hr tablet Take 1 tablet by mouth two times a day. QUEtiapine (SEROQUEL) 25 mg tablet Take 25 mg by mouth daily at bedtime. fluorometholone (FML LIQUID FILM) 0.1 % ophthalmic suspension Instill 1 drop in both eyes twice a day triamcinolone acetonide (KENALOG) 0.1 % cream Apply thin film on right thigh once or twice daily as needed. No longer than 2 weeks in a row. furosemide (LASIX) 20 mg tablet Take 1 tablet by mouth once daily. PRN LE Edema ramelteon (ROZEREM) 8 mg tablet Take 8 mg by mouth at bedtime as needed. losartan (COZAAR) 50 mg tablet 50 mg twice daily. carvedilol (COREG) 12.5 mg tablet Take 12.5 mg by mouth twice daily with meals. insulin lispro (HUMALOG KWIKPEN INSULIN) 100 unit/mL Use with meals based on PRE meal blood sugar SLIDING SCALE as needed #1 (1 for 50 over 150) ~20 units daily Insulin Scarbro, Disposable, (BD ULTRAFINE III MINI PEN) 31 gauge x 3/16 Uses 4 per day with insulin injection. flash glucose sensor ([employer] JANAY 2 SENSOR) kit Change sensor every 14 days. USE FOR CONTINUOUS GLUCOSE MONITORING. MULTIPLE INSULIN INJECTIONS. E11.9 QUEtiapine (SEROQUEL) 100 mg tablet Take 100 mg by mouth daily at bedtime. ondansetron (ZOFRAN) 4 mg tablet Take 1 tablet by mouth every 8 hours as needed for nausea/vomiting. rOPINIRole (REQUIP) 1 mg tablet Take 2 mg by mouth daily at bedtime. apixaban (ELIQUIS) 5 mg tab(s) Take 5 mg by mouth two times a day. 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 vibegron (GEMTESA) 75 mg tablet Take 75 mg by mouth once daily. nitroglycerin sublingual (NITROQUICK) 0.4 mg SL tablet Dissolve 0.4 mg under the tongue every 5 minutes as needed. pantoprazole DR (PROTONIX) 40 mg tablet Take 40 mg by mouth once daily. DULoxetine (CYMBALTA) 30 mg capsule Take 30 mg by mouth twice daily. dicyclomine (BENTYL) 20 mg tablet Take 20 mg by mouth twice daily as needed. PROLIA 60 mg/mL once every 6 months. June and January per pt atorvastatin (LIPITOR) 40 mg tablet Take 40 mg by mouth once daily. ascorbic acid, vitamin C, (VITAMIN C) 500 mg tablet Take 1 tablet by mouth once daily. sucralfate (CARAFATE) 1 gram tablet Take 1 tablet by mouth four times daily. Cholecalciferol, Vitamin D3, 5,000 unit cap Take 1 capsule by mouth once daily. rOPINIRole (REQUIP) 1 mg tablet Take 1 mg by mouth daily with lunch. aspirin, enteric coated (ASPIRIN, ENTERIC COATED) 81 mg EC tablet Take 81 mg by mouth once daily. 01/11 LAST DOSE -7 DAYS PRIOR TO SURGERY PER DRY HOUSE TENDER FOR SURGERY 01/20/24 No current facility-administered medications for this visit. ALLERGIES Allergen Reactions Aspirin Other: See Comments To high doses Indomethacin Other: See Comments Trazodone Intolerance Unable to wake up Vancomycin Shortness of Breath VANCO IV, during hospitalization Imitrex [Sumatripta* Vomiting BP went down Abilify [Aripiprazo* Other: See Comments Excessive drooling Clindamycin Intolerance Darvocet A500 [Prop* Intolerance Iodinated Contrast * Other: See Comments 30 yrs ago Iodine Intolerance rash Metformin GI Upset Stomach spasms Propoxyphene Other: See Comments REVIEW OF SYSTEMS - POSITIVES IN BOLD GENERAL:No weight loss, malaise or fevers HEENT:Negative for frequent or significant headaches, No changes in hearing or vision, no nose bleeds or other nasal problems NECK:Negative for lumps, goiter, pain and significant neck swelling RESPIRATORY: Negative for cough, hemoptysis, wheezing, COPD, dyspnea or shortness of breath CARDIOVASCULAR: Negative for chest pain, leg swelling, hypertension, CHF or palpitations PHYSICAL EXAMINATION: BP 128/76 (BP Site: Right Arm, BP Position: Sitting, BP Cuff Size: Regular Adult) Pulse 87 Temp 36.1 C (96.9 F) (Temporal Artery) Resp 12 Wt 68.7 kg (151 lb 6.4 oz) LMP 02/22/2000 (Approximate) SpO2 97% BMI 27.69 kg/m GENERAL: alert and appropriate, in no distress and well-hydrated, well nourished SKIN: no rash noted HEAD: normocephalic, no abnormality or lesion noted EYES: PERRL NECK: full ROM, no cervical LNs noted ACANTHOSIS: none noted EXTREMITIES: normal NEUROLOGIC: no obvious deficit ASSESSMENT/PLAN (E11.9) Controlled type 2 diabetes mellitus without complication, 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) (primary encounter diagnosis) Comment: CGM DOWNLOADED AND REVIEWED FOR OV RECOMMENDATIONS PER REVIEW FOLLOWS: Patient is compliant with CGM use and is benefiting from sensor use. Will cont per current, PCP increased GLP1 to 12.5 mg weekly injection Patient was starting SS at 200, recommend using the below SLIDING SCALE #1 -- USE WITH PRE MEAL BLOOD SUGARS ONLY Sliding Scale Insulin Dosing Sliding Scale 1 (1 unit for every 50 mg/dL > 150 mg/dL) SUPPLEMENTAL INSULIN If Blood Glucose (mg/dL) is < 150 Give 0 units 151-200 Give 1 unit 201-250 Give 2 units 251-300 Give 3 units 301-350 Give 4 units 351-400 Give 5 units >400 Give 6 units, call physician if blood glucose does not improve. Recommended diet: Low carbohydrate and Low saturated fat, low simple sugar, high fiber diet Exercise minimally 150 minutes per week, increase as tolerated. Adequate hydration - 1/2 body wgt in oz of water daily, unless fluid restriction applies. I instructed the patient to monitor blood sugars 4 times per day If blood sugars are persistently high or low, to call our office. Patient to continue to follow up with her PCP and with other consultants regarding her other medical problems. Plan: COMPREHENSIVE METABOLIC PANEL, LIPID PANEL, NONFASTING, ALBUMIN/CREATININE RATIO, URINE, HEMOGLOBIN A1C Rosa Flores CNP documented in this encounter [facility] 09-21-2024 Note [facility] 09-08-2024 Telephone encounter Note Patient called back to give answers to post procedure questions. 1. What was your pain score with the painful activity prior to the procedure? Pain score was 7. 2. What is your percentage of pain relief when doing the activities that previously caused you pain? 90% of pain relief 3. What is your pain level today? Pain level today is 1. Verified answers with patient and advised her that this information would be documented. [facility] Work Phone: 09-08-2024 Miscellaneous Notes Patient called back to give answers to post procedure questions. 1. What was your pain score with the painful activity prior to the procedure? Pain score was 7. 2. What is your percentage of pain relief when doing the activities that previously caused you pain? 90% of pain relief 3. What is your pain level today? Pain level today is 1. Verified answers with patient and advised her that this information would be documented. documented in this encounter [facility] 09-01-2024 Note HNO ID: [id number] Author: TAHIR BLANCHARD RN Service: ? Author Type: Registered Nurse Type: Nursing Progress Note Filed: 09/01/2024 15:50 Note Text: Continue to wait on Dr Davis. [facility] 09-01-2024 Nurse Note Continue to wait on Dr Davis. [facility] 09-01-2024 Nurse Note Continue to wait on Dr Davis. Waiting on Dr Davis to see patient. documented in this encounter [facility] 09-01-2024 Note HNO ID: [id number] Author: TAHIR BLANCHARD RN Service: ? Author Type: Registered Nurse Type: Nursing Progress Note Filed: 09/01/2024 15:30 Note Text: Waiting on Dr Davis to see patient. [facility] 09-01-2024 Nurse Note Waiting on Dr Davis to see patient. [facility] 08-29-2024 Telephone encounter Note Discussed with Dr. Davis. She will notify patient if she is able to have procedure. Tahir Alvarenga RN [facility] 08-29-2024 Miscellaneous Notes Discussed with Dr. Davis. She will notify patient if she is able to have procedure. Tahir Alvarenga RN Patient called stating that dermatology has placed her on a 10 day course of bactrim for skin infection. Patient would like to know if she can still have her procedure. Patient would also like to know if she needs to hold her monjaro for the procedure. Tahir Alvarenga RN documented in this encounter [facility] 08-29-2024 Telephone encounter Note Patient called stating that dermatology has placed her on a 10 day course of bactrim for skin infection. Patient would like to know if she can still have her procedure. Patient would also like to know if she needs to hold her monjaro for the procedure. Tahir Alvarenga RN [facility] 08-29-2024 Telephone encounter Note Summary: Medication Hold Called and left message to remind them to hold their Eliquis prior to their procedure at the [facility] Pain Management Department if approved by the prescribing physician. The last dose should have been taken on 08/28/2024 for their procedure on 09/01/2024. Instructed patient to call the number listed below if the Eliquis was not stopped on the date indicated. Instructed patient to please call [phone] Option #3 to speak with the Nurse with any questions. [facility] 08-29-2024 Miscellaneous Notes Summary: Medication Hold Called and left message to remind them to hold their Eliquis prior to their procedure at the [facility] Pain Management Department if approved by the prescribing physician. The last dose should have been taken on 08/28/2024 for their procedure on 09/01/2024. Instructed patient to call the number listed below if the Eliquis was not stopped on the date indicated. Instructed patient to please call [phone] Option #3 to speak with the Nurse with any questions. documented in this encounter [facility] 08-29-2024 Instructions Vaishnavi Soria MD - 08/29/2024 11:41 AM EDT Images from the original note were not included. documented in this encounter [facility] 08-29-2024 Note [facility] 08-29-2024 History of Present illness Narrative HPI: Patient returns for f/u of Prurigo nodularis. Patient reports flaring a week and a half ago. Reports new itchy spots across the face. Currently using mupirocin (BACTROBAN) 2 % ointment, triamcinolone acetonide (KENALOG) 0.1 % cream EXAM: Alert & oriented in no acute distress. Dorsum of Nose, Head - Anterior (Face), Mid Tip of Nose, Right Chin Several (10-12) scattered excoriated serous crusted papules. Left Buccal Cheek, Right Buccal Cheek IMPRESSION/PLAN: PRURIGO NODULARIS Dorsum of Nose, Head - Anterior (Face), Mid Tip of Nose, Right Chin Flaring at this time. Advised hydrocolloid patches to minimize picking. Patient in agreement. Intralesional kenalog 5 mg/ml x 3 lesions x 0.8 ml. Related Medications triamcinolone acetonide 5 mg injection (KeNALog 10) FOLLICULITIS Left Buccal Cheek, Right Buccal Cheek Underlying process causing nodules. Will treat with oral antibiotic. See orders. Related Medications sulfamethoxazole-trimethoprim (BACTRIM DS) 800-160 mg per tablet Take 1 tablet by mouth two times a day for 10 days. -F/u visit: 6 weeks The documentation for this note was completed by Rajan Bloom MA acting as scribe for Vaishnavi Soria MD. August 29, 2024 11:27 AM. The HPI, PMH, EXAM, Findings/plan that were documented by my power plant assistant, who was scribing during the encounter, were confirmed by me and I agree with the content of these sections. I have made any required additions or deletions to the HPI/PFSH/exam/findings/plan as needed. The physical exam and any procedures were performed by me, unless otherwise noted. Vaishnavi Soria MD Medical Decision Making: Problems: Moderate: 1+ chronic illnesses with change Risk: Moderate: Drug management Medical Decision Making Level: 4 - Moderate documented in this encounter [facility] 08-24-2024 Telephone encounter Note Left voicemail regarding scheduling Neuropysch testing and follow up in late September/early October respectively. [place] number included for call back. [facility] 08-24-2024 Miscellaneous Notes Left voicemail regarding scheduling Neuropysch testing and follow up in late September/early October respectively. [place] number included for call back. documented in this encounter [facility] 08-24-2024 History of Present illness Narrative Images from the original note were not included. [facility] MULTIPLE SCLEROSIS FOLLOWUP/ESTABLISHED PATIENT VISIT PRINCIPAL NEUROLOGIC DIAGNOSIS: Multiple sclerosis DISEASE SUMMARY Date of onset: 12/1998 Date of diagnosis of MS: 1998 Disease course at onset: Progressive with relapses Current disease course: Progressive with relapses Previous disease therapies: Glatiramer acetate 2002, [id number], [id number] Fingolimod 07/2014-04/2016 (switched because of heart issues - had heart attack) Teriflunomide 7 mg 04/2016-10/2016 Prednisone x 10 days 03/2017 IVMP 01/25/17 x 1 dose Teriflunomide 14 mg daily Kesimpta (started 01/2022- stopped due to concerns of facial nodules/excoriation) Current disease therapy: None Most recent MRI brain: 08/12/24 Most recent MRI cervical spine: 08/12/24 Most recent MRI thoracic spine: 08/22/22 CSF: 1998 JCV serology result and date: NA CHIEF COMPLAINT: Follow-up off MS disease modifying therapy INTERVAL HISTORY: Usual treating team: Pako/Carlos The patient is accompanied by self. The patient was last seen 08/03/24, currently taking Not on DMT. Since the patient's last visit the patient reports overall feeling stable. Kendra is a 68-year-old female with a history of multiple sclerosis (MS), presenting for follow-up. Kendra reports ongoing issues with urinary tract infections (UTIs). She completed a 14-day course of antibiotics last but continues to experience urinary symptoms. She plans to follow up with her urologist. Urology provider outside the [facility] She also reports a recurrence of a rash that began about a week ago. She has an appointment with her accessories repairer on Thursday. She was in the ED ([facility]) yesterday for low BP and elevated glucose- home health nurse came yesterday and took vitals and recommended ED eval. She monitors her blood pressure at home and has reached out to her in file operator for guidance on when to withhold medication. She also monitors her blood glucose levels, noting a reading of 201 mg/dL this morning before coffee and 345 mg/dL yesterday after taking insulin. She attributes her elevated blood glucose levels to a history of (MRCP with stenting) and plans to follow up with her machine filler. She notes a loss of endurance for walking, which she attributes to a recent hospital stay where she was mostly bedridden. She has been working on improving her strength and endurance. She is currently seeing a psychiatrist, Dr. Sultana, every four months, but most recent follow-up was recommended in two months and is scheduled to see her therapist next week. Dr. Sultana may be working up for PTSD? She has been working with a speech therapist and reports that her cognitive fog has improved. She is also planning to schedule neuropsychological testing in September. She mentions that her son, Paris, is currently incarcerated and awaiting sentencing. This situation has been a significant source of stress for her. SUBJECTIVE & REVIEW OF SYSTEMS: Neuro-QoL Functions (higher=better functioning) Flowsheet [facility] from 07/28/2024 in Neurology [facility] from 12/24/2023 in [facility] Office Visit from 11/10/2023 in [facility] Upper Extremity Domain T Score 38 34 38 Lower Extremity Domain T Score 37 37 37 Cognitive Function Domain T Score 26 35 35 Positive Affect Well Being T Score -- -- -- Ability To Participate In Social Roles T Score 41 42 42 Satisfaction With Social Roles T Score 42 43 42 Neuro-QoL Symptoms (higher=worse symptoms) Flowsheet [facility] from 07/28/2024 in [facility] from 12/24/2023 in [facility] Office Visit from 11/10/2023 in [facility] Sleep Domain T Score 70 68 69 Fatigue Domain T Score 66 58 56 Anxiety Domain T Score 57 56 52 Depression Domain T Score 59 54 51 Stigma Domain T Score 61 63 63 Emotional Behavior Dyscontrol T Score -- -- -- *NeuroQoL is a multi-domain patient-reported quality of life questionnaire. PHQ-9 [facility] from 07/28/2024 in [facility] from 12/24/2023 in [facility] PHQ-9 Score 16 12 *PHQ-9 is a questionnaire for depressive symptoms, with scores 0-4 indicating none, 5-9 mild, 10-14 moderate, 15-19 moderately severe, and 20-27 severe symptoms. PROMIS-10 Formerly [facility] from 07/28/2024 in Neurology Office Visit from 03/29/2024 in Rehab Medicine Global Physical Health T Score 32.4 37.4 Global Mental Health T Score 31.3 41.1 0-10 Standard Pain Scale 3 3 *PROMIS-10 is a patient-reported quality of life measure, typically reported as physical and mental domains. Here scores are expressed as percentiles, where the lowest possible score is one, the highest possible score is 99, and 50 is average. Refer to patient-entered data. Mood: PHQ9 responses reviewed and appear below Pain related to today's visit:reviewed on nursing intake documentation PAST HISTORY was reviewed and updated: PAST MEDICAL HISTORY Diagnosis Date Anxiety and depression Atrial fibrillation (HCC) Dr. Butler following- pt states blood clot in heart Cardiomyopathy (HCC) Cervical myelopathy (HCC) CHF (congestive heart failure) (HCC) Cognitive impairment on aricept Colitis COPD (chronic obstructive pulmonary disease) (HCC) Diabetes ([facility]) Dr. Flores following Dyslipidemia Full dentures GERD (gastroesophageal reflux disease) GI bleed 2020 History of loop recorder pt reports battery is [place]GA (hard of hearing) Hypertension controlled with meds IBS (irritable bowel syndrome) Multiple sclerosis ([facility]) Dr. Woods Myocardial infarct, old 03/2016 Obesity Pain management Pancreatitis ([facility]) [address] Greenfield RLS (restless legs syndrome) Sleep apnea no cpap since loosing 100lbs Tobacco dependence quit 12/26 Urinary incontinence Wears glasses PAST SURGICAL HISTORY Procedure Laterality Date BACK SURGERY HX lower x3 CARPAL TUNNEL lt and rt COLONOSCOPY FLX DX W/COLLJ SPEC WHEN PFRMD 10/12/2014 Colonoscopy inpt [facility] COLONOSCOPY FLX DX W/COLLJ SPEC WHEN PFRMD 02/28/2015 Colonoscopy EYE SURGERY HX Bilateral cataract FINGER SURGERY HX thumb reconstructed KNEE SURGERY HX lt x2 PAST SURGICAL HISTORY OF partial amputation of big toe PAST SURGICAL HISTORY OF Left 01/25/2015 great toe removal PAST SURGICAL HISTORY OF Bilateral 08/2022 C3 and C6 nerve ablasions PAST SURGICAL HISTORY OF calcium removed from breast TONSILLECTOMY HX TUBAL LIGATION HX MEDICATIONS and ALLERGIES were reviewed and updated. SOCIAL HISTORY was reviewed and updated: Social History Tobacco Use Smoking status: Every Day Packs/day: 0.00 Years: 1 pack/day for 51.0 years (51.0 ttl pk-yrs) Types: Cigarettes Start date: 01/04/1973 Last attempt to quit: 12/27/2023 Years since quittin.6 Smokeless tobacco: Never Tobacco comments: Less than 10 Living situation: Living at home with assistance Employment Status / Disability: Disabled, permanently or temporarily OBJECTIVE: VITALS & WELLNESS: LMP 02/22/2000 (Approximate) MSPT Results Flowsheet Row Office Visit from 11/10/2023 in [facility] Office Visit from 09/24/2023 in [facility] Office Visit from 01/29/2023 in [facility] Processing Speed Total Number Correct 33 41 34 Processing Speed Z score -- -- -- Dominant hand -- -- -- MDT Left Hand Time 47.9 52.61 34.09 MDT Right Hand Time 43.74 40.43 32.62 Walking Speed Test (25 feet) 12.66 10.86 12.8 Memory Z Score -- -- -- EXAM: General Appearance: well appearing, in no acute distress Mental status evaluation during the interview and examination showed Reported difficulties: memory word finding concentration / attention Affect: Normal Extraocular movements: full, without SAMINA Speech: normal Muscle strength (#/5): Right Left Upper Extremity: Deltoids 5 5 Biceps 5 5 Triceps 5 5 Safety Specialist 5 5 Dorsal interossei 4+ 4 Lower extremity: Iliopsoas 4+ 4+ Quadriceps 5 4 Hamstrings 4+ 4 Tibialis anterior 5 5 Gastrocnemius 5 5 Coordination: Upper extremity dexterity and rapid movements: Impaired left Finger-nose: no dysmetria; coordination intact Standing balance: Impaired Standard gait: wide-based, unsteady. Assistive device: rollator RESULTS: Monitoring labs: CBC + Diff Component Value Date WBC 6.41 07/29/2024 HB 11.1 (L) 07/29/2024 HCT 35.2 (L) 07/29/2024 PLT 260 07/29/2024 ABSLYMPH 1.50 07/29/2024 CMP Component Value Date AST 9 (L) 07/29/2024 GLUC 171 (H) 07/29/2024 BUN 20 07/29/2024 CREAT 0.64 07/29/2024 NA 135 (L) 07/29/2024 K 3.8 07/29/2024 CHLOR 102 07/29/2024 ALT 26 07/29/2024 No results found for: JCVAB, JCVIND Discrete MRI Results Component Value Date Brain New T2 Lesions None Site 08/12/2024 Brain New T2 Lesions None Site 08/12/2024 Brain Enhancing Lesions N 08/12/2024 Brain Enhancing Lesions N 08/12/2024 Cervical Spine New T2 Lesions None 08/12/2024 Cervical Spine New T2 Lesions None 08/12/2024 Cervical spine enhancing lesions None 08/12/2024 Cervical spine enhancing lesions None 08/12/2024 ASSESSMENT/PLAN: Elo Gray is a 68 year old female with Multiple Sclerosis. Patient is not currently on DMT. Last Kesimpta dose about 1 year ago. Brain and c-spine MRI reviewed from 08/12/24 and appears stable. Will continue to monitor off DMT at this time given ongoing infections and recurrence of facial rash. Encouraged follow-up with medical providers (PCP, endocrinology, urology, cardiology, GI, etc) for elevated glucose, low BP and UTI concerns. Consider repeat neuropsych testing but recommend waiting until health issues have resolved and feeling closer to baseline (tentatively end of September 2024). She notes improvement in cog fog since resuming speech therapy. Continue to work with psychiatry/therapist as directed. Patient Health Education Discussed at Visit: Aerobic exercise, Emotional Health/Wellness, Risks and Common side effects of MS medications, and Stretching Follow-up: In 2 months at [place], [place], or Virtual Visit with [facility] or sooner if needed I spent a total of 40 minutes on the date of the service which included preparing to see the patient, [id number] patient care, completing clinical documentation, obtaining and/or reviewing separately obtained history, performing a medically appropriate examination, counseling and educating the patient/family/caregiver, ordering medications, tests, or procedures, and communicating results to the patient/family/caregiver. Bill Woods PA-C The chart was reviewed for possible participation in the following studies:None Recording using [employer] software for draft documentation of the visit was discussed with the patient/authorized airport representative; all questions welcomed and answered. Patient/authorized airport representative agreed to proceed documented in this encounter [facility] 08-24-2024 Note [facility] 08-23-2024 History and physical note PROCEDURE EVALUATION & HISTORY AND PHYSICAL EXAM SUBJECTIVE: Elo Gray is a 68 year old woman who presents to [facility] for right SIJ injection. First time. Face lesions much better. No active infectious process. Afebrile. Ms. Gray denies any contraindications to the procedure including , coagulopathy, infection, recent cerebral/myocardial infarct, and hemodynamic instability. She states she is NPO and has a parts driver for return home. Last dose Eliquis Kali morning Instructed to take next dose not until tomorrow after 2;45 or 3 pm Iodine allergy - internal hives Will use [id number] or containing contrast today. Relevant medications in the EMR reviewed: Yes ALLERGIES Allergen Reactions Aspirin Other: See Comments To high doses Indomethacin Other: See Comments Trazodone Intolerance Unable to wake up Vancomycin Shortness of Breath VANCO IV, during hospitalization Imitrex [Sumatripta* Vomiting BP went down Abilify [Aripiprazo* Other: See Comments Excessive drooling Clindamycin Intolerance Darvocet A500 [Prop* Intolerance Iodinated Contrast * Other: See Comments 30 yrs ago Iodine Intolerance rash Metformin GI Upset Stomach spasms Propoxyphene Other: See Comments PAST ANESTHESIA HISTORY: No history of adverse event PAST MEDICAL HISTORY Diagnosis Date Anxiety and depression Atrial fibrillation ([facility]) Dr. Butler following- pt states blood clot in heart Cardiomyopathy ([facility]) Cervical myelopathy ([facility]) CHF (congestive heart failure) ([facility]) Cognitive impairment on aricept Colitis COPD (chronic obstructive pulmonary disease) ([facility]) Diabetes ([facility]) Dr. Flores following Dyslipidemia Full dentures GERD (gastroesophageal reflux disease) GI bleed 2020 History of loop recorder pt reports battery is [place] (hard of hearing) Hypertension controlled with meds IBS (irritable bowel syndrome) Multiple sclerosis ([facility]) Dr. Woods Myocardial infarct, old 03/2016 Obesity Pain management Pancreatitis ([facility]) [address] Greenfield RLS (restless legs syndrome) Sleep apnea no cpap since loosing 100lbs Tobacco dependence quit 12/26 Urinary incontinence Wears glasses PAST SURGICAL HISTORY Procedure Laterality Date BACK SURGERY HX lower x3 CARPAL TUNNEL lt and rt COLONOSCOPY FLX DX W/COLLJ SPEC WHEN PFRMD 10/12/2014 Colonoscopy inpt [facility] COLONOSCOPY FLX DX W/COLLJ SPEC WHEN PFRMD 02/28/2015 Colonoscopy EYE SURGERY HX Bilateral cataract FINGER SURGERY HX thumb reconstructed KNEE SURGERY HX lt x2 PAST SURGICAL HISTORY OF partial amputation of big toe PAST SURGICAL HISTORY OF Left 01/25/2015 great toe removal PAST SURGICAL HISTORY OF Bilateral 08/2022 C3 and C6 nerve ablasions PAST SURGICAL HISTORY OF calcium removed from breast TONSILLECTOMY HX TUBAL LIGATION HX No current facility-administered medications on file prior to encounter. Current Outpatient Medications on File Prior to Encounter Medication Sig oxyCODONE-acetaminophen (PERCOCET) 5-325 mg tablet 1/2-1 tab po daily prn pain - 18 tablets total modafinil (PROVIGIL) 200 mg tablet Take 1 tablet by mouth once daily for 180 days. acetaminophen (TYLENOL EXTRA STRENGTH) 500 mg tablet Take 2 tablets by mouth every 8 hours as needed for pain. FOR PAIN. [START ON 09/23/2024] tiZANidine (ZANAFLEX) 2 mg tablet 2 mg po qam and 2-4 mg qhs prn for pain control Patient should start on September 23, 2024. donepezil (ARICEPT) 10 mg tablet Take 2 tablets by mouth once daily. lidocaine (LIDODERM) 5 % Apply 1-2 Patches as directed once daily. TO AFFECTED AREA. REMOVE AFTER 12 HOURS. tirzepatide (MOUNJARO) 10 mg/0.5 mL pen injector Inject 10 mg subcutaneously one time a week. mupirocin (BACTROBAN) 2 % ointment Apply to nostrils twice daily x 5 days once per month. isosorbide mononitrate ER (IMDUR) 30 mg 24 hr tablet Take 1 tablet by mouth two times a day. QUEtiapine (SEROQUEL) 25 mg tablet Take 25 mg by mouth daily at bedtime. fluorometholone (FML LIQUID FILM) 0.1 % ophthalmic suspension Instill 1 drop in both eyes twice a day triamcinolone acetonide (KENALOG) 0.1 % cream Apply thin film on right thigh once or twice daily as needed. No longer than 2 weeks in a row. furosemide (LASIX) 20 mg tablet Take 1 tablet by mouth once daily. PRN LE Edema ramelteon (ROZEREM) 8 mg tablet Take 8 mg by mouth at bedtime as needed. losartan (COZAAR) 50 mg tablet 50 mg twice daily. carvedilol (COREG) 12.5 mg tablet Take 12.5 mg by mouth twice daily with meals. insulin lispro (HUMALOG KWIKPEN INSULIN) 100 unit/mL Use with meals based on PRE meal blood sugar SLIDING SCALE as needed #1 (1 for 50 over 150) ~20 units daily Insulin Scarbro, Disposable, (BD ULTRAFINE III MINI PEN) 31 gauge x 3/16 Uses 4 per day with insulin injection. flash glucose sensor (FREESTYLE JANAY 2 SENSOR) kit Change sensor every 14 days. USE FOR CONTINUOUS GLUCOSE MONITORING. MULTIPLE INSULIN INJECTIONS. E11.9 QUEtiapine (SEROQUEL) 100 mg tablet Take 100 mg by mouth daily at bedtime. ondansetron (ZOFRAN) 4 mg tablet Take 1 tablet by mouth every 8 hours as needed for nausea/vomiting. rOPINIRole (REQUIP) 1 mg tablet Take 2 mg by mouth daily at bedtime. apixaban (ELIQUIS) 5 mg tab(s) Take 5 mg by mouth two times a day. 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 vibegron (GEMTESA) 75 mg tablet Take 75 mg by mouth once daily. nitroglycerin sublingual (NITROQUICK) 0.4 mg SL tablet Dissolve 0.4 mg under the tongue every 5 minutes as needed. [DISCONTINUED] teriflunomide (AUBAGIO) 14 mg TAKE 1 TABLET BY MOUTH ONCE DAILY. pantoprazole DR (PROTONIX) 40 mg tablet Take 40 mg by mouth once daily. DULoxetine (CYMBALTA) 30 mg capsule Take 30 mg by mouth twice daily. dicyclomine (BENTYL) 20 mg tablet Take 20 mg by mouth twice daily as needed. PROLIA 60 mg/mL once every 6 months. June and January per pt atorvastatin (LIPITOR) 40 mg tablet Take 40 mg by mouth once daily. ascorbic acid, vitamin C, (VITAMIN C) 500 mg tablet Take 1 tablet by mouth once daily. sucralfate (CARAFATE) 1 gram tablet Take 1 tablet by mouth four times daily. Cholecalciferol, Vitamin D3, 5,000 unit cap Take 1 capsule by mouth once daily. rOPINIRole (REQUIP) 1 mg tablet Take 1 mg by mouth daily with lunch. aspirin, enteric coated (ASPIRIN, ENTERIC COATED) 81 mg EC tablet Take 81 mg by mouth once daily. 01/11 LAST DOSE -7 DAYS PRIOR TO SURGERY PER DRY HOUSE TENDER FOR SURGERY 01/20/24 FOCUSED ROS: CV: none RESP: none OBJECTIVE: BP 143/59 Temp 36.2 C (97.2 F) (Temporal) Resp 18 Wt 68.9 kg (152 lb) LMP 02/22/2000 (Approximate) SpO2 99% BMI 27.80 kg/m Significant changes in the patient's condition since the last C25 [facility] visit: No Provisional Diagnosis: Sacroiliitis [M46.1] Chronic right sacroiliac joint pain [M53.3, G89.29] Planned Procedure: right SIJ injection Heather Davis MD [facility] 08-23-2024 History and physical note PROCEDURE EVALUATION & HISTORY AND PHYSICAL EXAM SUBJECTIVE: Elo Gray is a 68 year old woman who presents to [facility] for right SIJ injection. First time. Face lesions much better. No active infectious process. Afebrile. Ms. Gray denies any contraindications to the procedure including , coagulopathy, infection, recent cerebral/myocardial infarct, and hemodynamic instability. She states she is NPO and has a parts driver for return home. Last dose Eliquis Thursday morning Instructed to take next dose not until tomorrow after 2;45 or 3 pm Iodine allergy - internal hives Will use [id number] or containing contrast today. Relevant medications in the EMR reviewed: Yes ALLERGIES Allergen Reactions Aspirin Other: See Comments To high doses Indomethacin Other: See Comments Trazodone Intolerance Unable to wake up Vancomycin Shortness of Breath VANCO IV, during hospitalization Imitrex [Sumatripta* Vomiting BP went down Abilify [Aripiprazo* Other: See Comments Excessive drooling Clindamycin Intolerance Darvocet A500 [Prop* Intolerance Iodinated Contrast * Other: See Comments 30 yrs ago Iodine Intolerance rash Metformin GI Upset Stomach spasms Propoxyphene Other: See Comments PAST ANESTHESIA HISTORY: No history of adverse event PAST MEDICAL HISTORY Diagnosis Date Anxiety and depression Atrial fibrillation (HCC) Dr. Butler following- pt states blood clot in heart Cardiomyopathy (HCC) Cervical myelopathy (HCC) CHF (congestive heart failure) (HCC) Cognitive impairment on aricept Colitis COPD (chronic obstructive pulmonary disease) (HCC) Diabetes (HCC) Dr. Flores following Dyslipidemia Full dentures GERD (gastroesophageal reflux disease) GI bleed 2020 History of loop recorder pt reports battery is [place] (hard of hearing) Hypertension controlled with meds IBS (irritable bowel syndrome) Multiple sclerosis ([facility]) Dr. Woods Myocardial infarct, old 03/2016 Obesity Pain management Pancreatitis ([facility]) [address] Greenfield RLS (restless legs syndrome) Sleep apnea no cpap since loosing 100lbs Tobacco dependence quit 12/26 Urinary incontinence Wears glasses PAST SURGICAL HISTORY Procedure Laterality Date BACK SURGERY HX lower x3 CARPAL TUNNEL lt and rt COLONOSCOPY FLX DX W/COLLJ SPEC WHEN PFRMD 10/12/2014 Colonoscopy inpt [facility] COLONOSCOPY FLX DX W/COLLJ SPEC WHEN PFRMD 02/28/2015 Colonoscopy EYE SURGERY HX Bilateral cataract FINGER SURGERY HX thumb reconstructed KNEE SURGERY HX lt x2 PAST SURGICAL HISTORY OF partial amputation of big toe PAST SURGICAL HISTORY OF Left 01/25/2015 great toe removal PAST SURGICAL HISTORY OF Bilateral 08/2022 C3 and C6 nerve ablasions PAST SURGICAL HISTORY OF calcium removed from breast TONSILLECTOMY HX TUBAL LIGATION HX No current facility-administered medications on file prior to encounter. Current Outpatient Medications on File Prior to Encounter Medication Sig oxyCODONE-acetaminophen (PERCOCET) 5-325 mg tablet 1/2-1 tab po daily prn pain - 18 tablets total modafinil (PROVIGIL) 200 mg tablet Take 1 tablet by mouth once daily for 180 days. acetaminophen (TYLENOL EXTRA STRENGTH) 500 mg tablet Take 2 tablets by mouth every 8 hours as needed for pain. FOR PAIN. [START ON 09/23/2024] tiZANidine (ZANAFLEX) 2 mg tablet 2 mg po qam and 2-4 mg qhs prn for pain control Patient should start on September 23, 2024. donepezil (ARICEPT) 10 mg tablet Take 2 tablets by mouth once daily. lidocaine (LIDODERM) 5 % Apply 1-2 Patches as directed once daily. TO AFFECTED AREA. REMOVE AFTER 12 HOURS. tirzepatide (MOUNJARO) 10 mg/0.5 mL pen injector Inject 10 mg subcutaneously one time a week. mupirocin (BACTROBAN) 2 % ointment Apply to nostrils twice daily x 5 days once per month. isosorbide mononitrate ER (IMDUR) 30 mg 24 hr tablet Take 1 tablet by mouth two times a day. QUEtiapine (SEROQUEL) 25 mg tablet Take 25 mg by mouth daily at bedtime. fluorometholone (FML LIQUID FILM) 0.1 % ophthalmic suspension Instill 1 drop in both eyes twice a day triamcinolone acetonide (KENALOG) 0.1 % cream Apply thin film on right thigh once or twice daily as needed. No longer than 2 weeks in a row. furosemide (LASIX) 20 mg tablet Take 1 tablet by mouth once daily. PRN LE Edema ramelteon (ROZEREM) 8 mg tablet Take 8 mg by mouth at bedtime as needed. losartan (COZAAR) 50 mg tablet 50 mg twice daily. carvedilol (COREG) 12.5 mg tablet Take 12.5 mg by mouth twice daily with meals. insulin lispro (HUMALOG KWIKPEN INSULIN) 100 unit/mL Use with meals based on PRE meal blood sugar SLIDING SCALE as needed #1 (1 for 50 over 150) ~20 units daily Insulin Scarbro, Disposable, (BD ULTRAFINE III MINI PEN) 31 gauge x 3/16 Uses 4 per day with insulin injection. flash glucose sensor (FREESTYLE JANAY 2 SENSOR) kit Change sensor every 14 days. USE FOR CONTINUOUS GLUCOSE MONITORING. MULTIPLE INSULIN INJECTIONS. E11.9 QUEtiapine (SEROQUEL) 100 mg tablet Take 100 mg by mouth daily at bedtime. ondansetron (ZOFRAN) 4 mg tablet Take 1 tablet by mouth every 8 hours as needed for nausea/vomiting. rOPINIRole (REQUIP) 1 mg tablet Take 2 mg by mouth daily at bedtime. apixaban (ELIQUIS) 5 mg tab(s) Take 5 mg by mouth two times a day. 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 vibegron (GEMTESA) 75 mg tablet Take 75 mg by mouth once daily. nitroglycerin sublingual (NITROQUICK) 0.4 mg SL tablet Dissolve 0.4 mg under the tongue every 5 minutes as needed. [DISCONTINUED] teriflunomide (AUBAGIO) 14 mg TAKE 1 TABLET BY MOUTH ONCE DAILY. pantoprazole DR (PROTONIX) 40 mg tablet Take 40 mg by mouth once daily. DULoxetine (CYMBALTA) 30 mg capsule Take 30 mg by mouth twice daily. dicyclomine (BENTYL) 20 mg tablet Take 20 mg by mouth twice daily as needed. PROLIA 60 mg/mL once every 6 months. June and January per pt atorvastatin (LIPITOR) 40 mg tablet Take 40 mg by mouth once daily. ascorbic acid, vitamin C, (VITAMIN C) 500 mg tablet Take 1 tablet by mouth once daily. sucralfate (CARAFATE) 1 gram tablet Take 1 tablet by mouth four times daily. Cholecalciferol, Vitamin D3, 5,000 unit cap Take 1 capsule by mouth once daily. rOPINIRole (REQUIP) 1 mg tablet Take 1 mg by mouth daily with lunch. aspirin, enteric coated (ASPIRIN, ENTERIC COATED) 81 mg EC tablet Take 81 mg by mouth once daily. 01/11 LAST DOSE -7 DAYS PRIOR TO SURGERY PER DRY HOUSE TENDER FOR SURGERY 01/20/24 FOCUSED ROS: CV: none RESP: none OBJECTIVE: BP 143/59 Temp 36.2 C (97.2 F) (Temporal) Resp 18 Wt 68.9 kg (152 lb) LMP 02/22/2000 (Approximate) SpO2 99% BMI 27.80 kg/m Significant changes in the patient's condition since the last C25 [facility] visit: No Provisional Diagnosis: Sacroiliitis [M46.1] Chronic right sacroiliac joint pain [M53.3, G89.29] Planned Procedure: right SIJ injection Heather Davis MD documented in this encounter [facility] 08-17-2024 Note [facility] 08-16-2024 Note [facility] 08-12-2024 History of Present illness Narrative Radiology Service Progress Note PATIENT NAME: Elo Gray DATE OF SERVICE: August 12, 2024 TIME: 9:00 AM PATIENT IDENTITY VERIFICATION COMPLETED USING TWO (2) IDENTIFIERS: Name and Date of confirmed by patient verbally. FALL SCREENING: Has the patient had 2 falls in the last year or 1 fall with injury or currently using an Ambulatory Assistive Device (Walker, Cane, Wheelchair, Crutches, etc.)? Yes, Patient High Risk for Falls What interventions were put in place to prevent falls during this visit? Instructed Patient to Call for Help if Needed, Offered Assistance with Transfers/Clothing, Instructed Patient to Remain Seated (Not on Exam Table) Until Exam, and Increased Observations by Caregivers PATIENT GENDER DATA: Assigned female at . status: : No status: NO. PATIENT RELEVANT IMPLANT DATA REVIEWED: Yes PATIENT PRESENTS WITH AN IMPLANTABLE OR ATTACHED MARKETING PROFESSOR: No RADIOLOGY DEPARTMENT: MR; Exam(s) Completed: Head: Routine Brain Spine: Cervical spine PERIPHERAL IV DATA: Not applicable SIGNED BY: RT True(R) August 12, 2024 9:00 AM documented in this encounter [facility] 08-12-2024 Note [facility] 08-10-2024 Telephone encounter Note The following approved medication requests have been transmitted electronically. Requested Prescriptions Signed Prescriptions Disp Refills modafinil (PROVIGIL) 200 mg tablet 30 tablet 5 Sig: Take 1 tablet by mouth once daily for 180 days. Authorizing Provider: BILL WOODS PA-C [facility] 08-10-2024 Miscellaneous Notes The following approved medication requests have been transmitted electronically. Requested Prescriptions Signed Prescriptions Disp Refills modafinil (PROVIGIL) 200 mg tablet 30 tablet 5 Sig: Take 1 tablet by mouth once daily for 180 days. Authorizing Provider: BILL WOODS PA-C Source : call from patient requesting refill. Delivery : e-script Requested Prescriptions Pending Prescriptions Disp Refills modafinil (PROVIGIL) 200 mg tablet 30 tablet 5 Sig: Take 1 tablet by mouth once daily for 180 days. DX : Patient last seen 08/03/24 Next Appointment FYI.... new script requested Elizabeth Pearec documented in this encounter [facility] 08-10-2024 Telephone encounter Note There is a separate refill encounter for modafinil and it was sent to provider [facility] 08-10-2024 Miscellaneous Notes There is a separate refill encounter for modafinil and it was sent to provider RN spoke with patient. Patient states she had a UTI and was treated with antibiotics a few weeks ago. Then she was having pain in her abdomen and side. Went to ER and was found to be dehydrated and had swollen pancreatic ducts. Underwent a MRCP with stenting and found stones. Does have a follow up with GI provider tomorrow. Since the MRCP she has had slurred speech, shaky hands, and increased confusion x 2 weeks. RN believes speech seems more garbled than slurred. These are all symptoms she has had in the past with MS flares. She does not have a headache, numbness, weakness, or facial drooping. Being that this has been ongoing for two weeks RN recommended sooner follow up visit to discuss symptoms. VV held for today at 1:45PM with first available [employer] JANICE. Patient verbalized understanding. No further questions at this time. JEAN MARIE Min RN called, no answer. Left VM to call office back. RN called listed contact: Aubree Haywood, friend. No answer. Left VM asking to have Kendra call our office. JEAN MARIE Min documented in this encounter [facility] 08-09-2024 Telephone encounter Note Source : call from patient requesting refill. Delivery : e-script Requested Prescriptions Pending Prescriptions Disp Refills modafinil (PROVIGIL) 200 mg tablet 30 tablet 5 Sig: Take 1 tablet by mouth once daily for 180 days. DX : Patient last seen 08/03/24 Next Appointment FYI.... new script requested Elizabeth Pearce [facility] 08-05-2024 Note [facility] 08-05-2024 History of Present illness Narrative Images from the original note were not included. [facility] Established Patient Consultation No referring provider defined for this encounter. CC: S/p T10-T11 Laminectomy followed by L3-4 Laminectomy Subjective History of Present Illness: Mrs. Gray is a pleasant 68yo lady who was referred to us by Dr. Duarte due to concerns of thoracic myelopathy. She has a PMH significant for MS and smoking and DMII. She has a history of chronic lower back pain and more recently started noticing worsening balance and some weakness and heaviness in her legs when walking longer distances. She is ambulatory at baseline with a walker. Hx of C4-6 lami fusion and hx of L4-5 and L5-1 decompression in 2015. Denies upper extremity symptoms. On Eliquis, prior hx of [place]. Smokes half a pack a day of cigarettes. Patient does not work and is independent at home. Update 02/11/2024: Mrs. Gray returns today for a postop follow up. She refers that her lower extremities fell stronger and that her pain has improved. She is having PT daily at the nurse facility she is in. Denies other symptoms. Updates 02/18/2024: She is s/p T10-T11 and L3-L4 laminectomy 01/20/24 and presented our clinic today with wound dehiscence and signs of infection. She will be admitted for I&D tomorrow. Updates 03/08/2024: She returns today for a postop follow up. Denies any symptoms. Updates 08/04/2024: Kendra is a 68-year-old female presenting for follow-up after recent pancreatic surgery and wound washout. Kendra underwent pancreatic surgery on January 19 to remove a stone blocking the entrance to the pancreas. She reports a history of pancreatitis. On February 18, she had a wound washout procedure. She reports improvement in her walking and attributes this to the care she has received. She also mentions experiencing significant sciatica pain and is currently participating in physical therapy. Past Diagnostic Results: Imaging - MRI: Decompression at T10, T11, L3, L4, L5, L9. Past Medical History: PAST MEDICAL HISTORY Diagnosis Date Anxiety and depression Atrial fibrillation ([facility]) Dr. Butler following- pt states blood clot in heart Cardiomyopathy (HCC) Cervical myelopathy (HCC) CHF (congestive heart failure) ([facility]) Cognitive impairment on aricept Colitis COPD (chronic obstructive pulmonary disease) ([facility]) Diabetes ([facility]) Dr. Flores following Dyslipidemia Full dentures GERD (gastroesophageal reflux disease) GI bleed 2020 History of loop recorder pt reports battery is [place]ANGA (hard of hearing) Hypertension controlled with meds IBS (irritable bowel syndrome) Multiple sclerosis ([facility]) Dr. Woods Myocardial infarct, old 03/2016 Obesity Pain management Pancreatitis ([facility]) [address] Greenfield RLS (restless legs syndrome) Sleep apnea no cpap since loosing 100lbs Tobacco dependence quit 12/26 Urinary incontinence Wears glasses Past Surgical History: PAST SURGICAL HISTORY Procedure Laterality Date BACK SURGERY HX lower x3 CARPAL TUNNEL lt and rt COLONOSCOPY FLX DX W/COLLJ SPEC WHEN PFRMD 10/12/2014 Colonoscopy inpt [facility] COLONOSCOPY FLX DX W/COLLJ SPEC WHEN PFRMD 02/28/2015 Colonoscopy EYE SURGERY HX Bilateral cataract FINGER SURGERY HX thumb reconstructed KNEE SURGERY HX lt x2 PAST SURGICAL HISTORY OF partial amputation of big toe PAST SURGICAL HISTORY OF Left 01/25/2015 great toe removal PAST SURGICAL HISTORY OF Bilateral 08/2022 C3 and C6 nerve ablasions PAST SURGICAL HISTORY OF calcium removed from breast TONSILLECTOMY HX TUBAL LIGATION HX Family History: FAMILY HISTORY Problem Relation Age of Onset No Ocular Disease Father Cancer Father lung No Ocular Disease Mother Cancer Mother pancreatic Multiple Sclerosis No Family History Social History Tobacco Use Smoking status: Every Day Current packs/day: 0.00 Average packs/day: 1 pack/day for 51.0 years (51.0 ttl pk-yrs) Types: Cigarettes Start date: 01/04/1973 Last attempt to quit: 12/27/2023 Years since quittin.6 Smokeless tobacco: Never Tobacco comments: Less than 10 Vaping Use Vaping status: Never Used Substance Use Topics Alcohol use: Yes Comment: 1-2 times per year flavored beer Drug use: No Allergies: Aspirin, Indomethacin, Trazodone, Vancomycin, Imitrex [Sumatriptan], Abilify [Aripiprazole], Clindamycin, Darvocet A500 [Propoxyphene N-Acetaminophen], Iodinated Contrast Media, Iodine, Metformin, and Propoxyphene Current Outpatient Medications Medication Sig donepezil (ARICEPT) 10 mg tablet Take 2 tablets by mouth once daily. lidocaine (LIDODERM) 5 % Apply 1-2 Patches as directed once daily. TO AFFECTED AREA. REMOVE AFTER 12 HOURS. tirzepatide (MOUNJARO) 10 mg/0.5 mL pen injector Inject 10 mg subcutaneously one time a week. mupirocin (BACTROBAN) 2 % ointment Apply to nostrils twice daily x 5 days once per month. QUEtiapine (SEROQUEL) 25 mg tablet Take 25 mg by mouth daily at bedtime. fluorometholone (FML LIQUID FILM) 0.1 % ophthalmic suspension Instill 1 drop in both eyes twice a day (Patient taking differently: Use 1 drop in both eyes two times a day. Instill 1 drop in both eyes twice a day) triamcinolone acetonide (KENALOG) 0.1 % cream Apply thin film on right thigh once or twice daily as needed. No longer than 2 weeks in a row. furosemide (LASIX) 20 mg tablet Take 1 tablet by mouth once daily. PRN LE Edema ramelteon (ROZEREM) 8 mg tablet Take 8 mg by mouth at bedtime as needed. losartan (COZAAR) 50 mg tablet 50 mg twice daily. carvedilol (COREG) 12.5 mg tablet Take 12.5 mg by mouth twice daily with meals. insulin lispro (HUMALOG KWIKPEN INSULIN) 100 unit/mL Use with meals based on PRE meal blood sugar SLIDING SCALE as needed #1 (1 for 50 over 150) ~20 units daily Insulin Scarbro, Disposable, (BD ULTRAFINE III MINI PEN) 31 gauge x 3/16 Uses 4 per day with insulin injection. flash glucose sensor (FREESTYLE JANAY 2 SENSOR) kit Change sensor every 14 days. USE FOR CONTINUOUS GLUCOSE MONITORING. MULTIPLE INSULIN INJECTIONS. E11.9 QUEtiapine (SEROQUEL) 100 mg tablet Take 100 mg by mouth daily at bedtime. ondansetron (ZOFRAN) 4 mg tablet Take 1 tablet by mouth every 8 hours as needed for nausea/vomiting. rOPINIRole (REQUIP) 1 mg tablet Take 2 mg by mouth daily at bedtime. apixaban (ELIQUIS) 5 mg tab(s) Take 5 mg by mouth two times a day. 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 vibegron (GEMTESA) 75 mg tablet Take 75 mg by mouth once daily. nitroglycerin sublingual (NITROQUICK) 0.4 mg SL tablet Dissolve 0.4 mg under the tongue every 5 minutes as needed. pantoprazole DR (PROTONIX) 40 mg tablet Take 40 mg by mouth once daily. DULoxetine (CYMBALTA) 30 mg capsule Take 30 mg by mouth twice daily. dicyclomine (BENTYL) 20 mg tablet Take 20 mg by mouth twice daily as needed. PROLIA 60 mg/mL once every 6 months. June and January per pt atorvastatin (LIPITOR) 40 mg tablet Take 40 mg by mouth once daily. ascorbic acid, vitamin C, (VITAMIN C) 500 mg tablet Take 1 tablet by mouth once daily. sucralfate (CARAFATE) 1 gram tablet Take 1 tablet by mouth four times daily. Cholecalciferol, Vitamin D3, 5,000 unit cap Take 1 capsule by mouth once daily. rOPINIRole (REQUIP) 1 mg tablet Take 1 mg by mouth daily with lunch. aspirin, enteric coated (ASPIRIN, ENTERIC COATED) 81 mg EC tablet Take 81 mg by mouth once daily. 01/11 LAST DOSE -7 DAYS PRIOR TO SURGERY PER [employer]Y HOUSE TENDER FOR SURGERY 01/20/24 acetaminophen (TYLENOL EXTRA STRENGTH) 500 mg tablet Take 2 tablets by mouth every 8 hours as needed for pain. FOR PAIN. [START ON 09/23/2024] tiZANidine (ZANAFLEX) 2 mg tablet 2 mg po qam and 2-4 mg qhs prn for pain control Patient should start on September 23, 2024. isosorbide mononitrate ER (IMDUR) 30 mg 24 hr tablet Take 1 tablet by mouth two times a day. Cranberry 500 mg cap Take by mouth every morning. STOPPING FOR SURGERY 01/06/24 SURGERY 01/20/24 pioglitazone (ACTOS) 30 mg tablet Take 30 mg by mouth once daily. No current facility-administered medications for this visit. Employed: No Review of systems: Constitutional: No recent fever or weight loss. Eyes: No history of glaucoma or cataracts. ENMT: No recent ear infection, nasal congestion, mouth sores or sore throat. CV: No history of chest pain, palpitations or leg swelling. Respiratory: No history of SOB, asthma or recent cough. Gastrointestinal: No history of nausea, vomiting, dysphagia or abdominal pain. Genitourinary: No history of hematuria or dysuria. Musculoskeletal: No complaint of arthritis, unstable gait or arm/leg weakness. Psychiatric: No history of hallucinations or depression or anxiety. ROS Neurological: No complaint of headache. No complaint of tinnitus. No complaint of decreased hearing. No complaint of diplopia. No complaints of decreased visual acuity. No complaint of arm/leg numbness. No problem with limb coordination. No complaint of syncope, seizures or disorientation. Objective Physical Exam: Ht 157.5 cm (5' 2) Wt 71.2 kg (157 lb) LMP 02/22/2000 (Approximate) BMI 28.72 kg/m Neurological: Higher integrative functions: Oriented to person, place & time. Memory: Good recent and remote. Attention Span and Concentration: Good. Language: Accurate naming of objects. Good comprehension. Fund of Knowledge: Good. 2nd CN: Full visual jeffery. 3rd,4th,6th CN: Pupils (=), round, react to light, full extraocular movements. 5th CN: No decrease in facial sensation. 7th CN: Facial muscles symmetric and strong. 8th CN: Hears finger rub well bilaterally. 9th CN: Good gag. 10th CN: Spontaneous palate movement, full and symmetric. 11th CN: Full strength in shoulder shrug. 12th CN: Tongue protrusion full and midline. Sensation: No decrease in sensation in upper or lower limbs to touch. Musculoskeletal: unsteady gait. Motor all limbs grade 3/5 in lower extremities. Myotatic reflexes: 4/4 on lower extremities. Babinski+, Clonus + Babinski reflexes: Absent. Coordination: Rapid alternating movements fast and smooth all limbs. SLR negative bilateral Paraspinal tenderness on a palpation of lower lumbar spine Incision: C/D/I Labs: Latest Ref Rng & Units 02/21/2024 02/22/2024 07/29/2024 CBC WBC 3.70 - 11.00 k/uL 6.65 5.71 6.41 RBC 3.90 - 5.20 m/uL 3.43 3.51 3.84 Hemoglobin 11.5 - 15.5 g/dL 10.4 10.9 11.1 Hematocrit 36.0 - 46.0 % 33.2 33.0 35.2 MCV 80.0 - 100.0 fL 96.8 94.0 91.7 MCH 26.0 - 34.0 pg 30.3 31.1 28.9 MCHC 30.5 - 36.0 g/dL 31.3 33.0 31.5 RDW-CV 11.5 - 15.0 % 13.2 13.2 15.1 Platelet Count 150 - 400 k/uL 271 263 260 MPV 9.0 - 12.7 fL 9.7 9.4 9.9 Baso% % 1.1 Abs Neut (ANC) 1.45 - 7.50 k/uL 4.04 Abs Lymph 1.00 - 4.00 k/uL 1.50 Abs Mcdowell <0.87 k/uL 0.55 Abs Eosin <0.46 k/uL 0.23 Abs Baso <0.11 k/uL 0.07 NRBC /100 WBC 0.0 Latest Ref Rng & Units 02/21/2024 02/22/2024 07/29/2024 CMP Sodium 136 - 144 mmol/L 139 139 135 Potassium 3.7 - 5.1 mmol/L 4.1 4.0 3.8 Chloride 98 - 107 mmol/L 108 108 102 CO2 22 - 30 mmol/L 26 25 27 Glucose 74 - 99 mg/dL 101 250 171 BUN 7 - 21 mg/dL 13 10 20 Creatinine 0.58 - 0.96 mg/dL 0.54 0.48 0.64 EGFR >=60 mL/min/1.73m 100 103 96 Protein, Total 6.3 - 8.0 g/dL 6.3 Albumin 3.9 - 4.9 g/dL 3.5 Albumin, Urine Random mg/L <12.0 Calcium 8.5 - 10.2 mg/dL 9.1 9.6 9.4 Bilirubin, Total 0.2 - 1.3 mg/dL 0.2 AST 13 - 35 U/L 9 ALT 7 - 38 U/L 26 Alkaline Phosphatase 34 - 123 U/L 207 Imaging: Lumbar and thoracic Xrs showed no signs of instability or deformities. Data Review: Personal review of medical records: I reviewed the [facility] chart. Personal review of image, tracing or specimen: Chloe Mackenzie MD Assessment & Plan 68 year old female who presents with a surgical wound infection. She is s/p T10-T11 and L3-L4 laminectomy 01/20/24 and presented our clinic with wound dehiscence and signs of infection, underwent I&D. Incision today is C/D/I. 1. Postprocedural state (Z98.890) - Recent pancreatic surgery on January 19 for stone removal; subsequent wound washout on February 18. - Spinal decompression performed at T10, T11, and from L3 to L5; incisions healing well, spine appears stable. - Experiencing sciatica pain; advised to continue physical therapy. - If sciatica pain persists beyond 6 weeks, instructed to return for evaluation and potential repeat imaging. I will see her in 6 months. Recommendations: As above Medicines: No Change Instructions: Continue present activity Physician [id number] time was 10 minutes with > 50% devoted to counseling or co-ordination of care. Approximately 10 minutes were spent reviewing medical records. No resident was available to participate in this visit. I saw and evaluated the patient. Medical Decision Making: Problems: Moderate: 2+ stable chronic illnesses Data: Unique source(s) for external note(s) reviewed: 2 Unique test result(s) reviewed: 2 Medical Decision Making Level: 4 - Moderate Chloe Mackenzie MD [facility] August 05, 2024 2:03 PM 68 y/o female presents to office for a routine 6 month follow up from sx that was completed 02/19/2024. She reports 3/10 pain where the incision was made but overall feeling much better. Xray obtained documented in this encounter [facility] 08-05-2024 Note [facility] 08-05-2024 History of Present illness Narrative D Physical Medicine and Rehabilitation F/u patient August 05, 2024 Last visit March 29, 2024 SUBJECTIVE HISTORY OF PRESENT ILLNESS: Elo Gray is a 68 year old woman for f/u back pain Folliowing with pain management, Dr. Heather Davis Prior 3 low back (unclear dates, completed in [place], [facility]) and 1 cervical surgeries (2016 in [place]) Since last eval, 2 weeks ago had pancreatic stone and removed and stent placed via MRCP Recent f/u with Dr. Mackenzie 08/04/24 Previous surgery 01/20/24 T10-T11 lami and L3-L4 lami, then readmitted for I & D from infection with Dr. Mackenzie NS. Was given IV vanco but had reaction and had to stop and then placed on bactrim and completed. Having some pain on the right side of low back Pain worse with sit to stand transfers Lumbar xr yesterday with very posterior sacrum and facetogenic changes Last visit with Dr. Buenrostro 04/08/24, next 08/17/24 Doing PT via [facility]- using [facility] in [place]- tolerating therapies. MRI L spine 07/27/23 completed showing: Anatomic variant: None. Localizer images: No additional findings. Alignment: Thoracolumbar dextroscoliosis with apex of the curvature at L3. Straightening of the normal lumbar lordosis. Severe disc space narrowing is noted throughout the visualized spine with sparing of the L2-3 level. Bone marrow signal/fracture: No evidence of pathologic marrow infiltration. Mild asymmetric wedge deformity of the T11 vertebral body with normal signal intensity characteristics of the marrow suggesting remote benign compression fracture. Apparent bony fusion of the L4 and L5 vertebral bodies. Laminectomy defect is noted at L4-S1 and a right inferior facetectomy at L4. There may be a partial left facetectomy at this same level.. Suspicion of right unilateral chronic pars fracture at L5-S1. Conus: Mild disc osteophyte complex and facet degenerative changes appear to cause mild cord compression at T10-11. Patchy hyperintensity is noted in the cord at this same level which may reflect myelomalacia or intramedullary plaque in view of the clinical history of multiple sclerosis but the cord compression would favor the former. Paraspinal soft tissues: Disruption of the dorsal soft tissue planes compatible with the prior surgery. Lower thoracic spine: Mild disc osteophyte complex and facet degenerative changes cause mild cord compression at T10-11. Facet degenerative changes at T11-12 and minimal disc bulging at T12-L1 only minimally impinges on the canal. Facet degenerative changes and rostrocaudal facet subluxation cause moderate left and severe right T10-11 and mild right T11-12 foraminal stenosis. L1-L2: Mild osteophyte formation and facet degenerative change cause mild canal and mild left foraminal stenosis.. L2-L3: Mild facet degenerative change. Canal and foramina widely patent. L3-L4: Mild disc osteophyte complex, facet degenerative changes and developmentally short pedicles cause severe canal stenosis, right subarticular recess stenosis, and mild bilateral foraminal stenosis. L4-L5: Prior laminectomy. Canal and right neural foramen are patent. Bony hypertrophic changes cause mild left foraminal stenosis. L5-S1: Prior laminectomy. The canal is widely patent. Bony hypertrophic changes only mildly impinge on the neural foramina.. Sacrum and iliac wings: The visualized sacrum and iliac wings are within normal limits. IMPRESSION: Postop changes following dorsal decompression procedure at L4-S1. Severe severe canal, right subarticular recess and mild bilateral bony foraminal stenosis at L3-4. Mild cord compression bilateral bony foraminal stenosis and suspicion of mild myelomalacia or intramedullary plaque at T10-11. Previous MRI C/T spine and brain 08/22/22: Multiple intracranial white matter lesions compatible with multiple sclerosis. No new T2 lesions and no new enhancing lesions. Mild parenchymal volume loss. Other Significant Intracranial Findings: None No evidence of demyelinating disease in the cervical and upper thoracic spinal cord. No new T2 intramedullary lesions and no new enhancing intramedullary lesions. Mild upper spinal cord volume loss for age. Other Significant Cervical Spine Findings: No significant cervical canal or foraminal stenosis. Stable postop changes of laminectomies at C4-C6 and posterior fusion. Cervical Anatomic Variant: None. Assume 7 cervical vertebrae with counting from the craniocervical junction. Alignment: Alignment is anatomic. Stable severe loss of disc height at C5-C6 and C6-C7 reflecting degeneration. Stable moderate loss of disc height at C7-T1 reflecting degeneration Again noted are postoperative changes of posterior spinal fixation rods and pedicle screws extending from C4 through C6. Stable laminectomies are identified at C4-C6. No pseudomeningocele. Craniocervical Junction: Craniocervical junction is normal. Cord Findings: The visualized cord is within normal limits of signal intensity and morphology. Cord T2 Plaque [place]: None New T2 Lesions: None Interval Cord Improvement: None New Cord Enhancing Lesions: None Cord Volume Loss: Mild Bone marrow signal/fracture: No evidence of pathologic marrow infiltration. No evidence of prior fracture. Cervical soft tissues: The paraspinal soft tissues are within normal limits. Cervical Canal and foramina: No significant canal or foraminal stenosis in the visualized spine. No clear evidence of demyelination on this study however there is mild chronic cord compression at T10-T11 due to combination of degenerative disc and facet disease. There is questionable increased signal within the cord at this level suggesting myelomalacia. No pathologic enhancement. Localizer images: Unremarkable. Alignment: Alignment is anatomic. Moderate loss of disc height at T5-T6 reflecting degeneration. Cord: There is mild chronic cord compression at T10-T11 due to the presence of a disc bulge and redundant ligamentum flavum (series 19 image 9 and series 21 image 9). There is questionable increased signal within the cord at this level raising the specter of myelomalacia. Bone marrow signal/fracture: Again noted are-type II endplate changes adjacent to T10-T11 and T11-T12 and T12-L1. No evidence of pathologic marrow infiltration. Chronic less than 30% anterior compression deformity of T11 without dorsal displacement the posterior wall. Thoracic paraspinal soft tissues: The paraspinal soft tissues are within normal limits. Canal and foramina: Mild canal stenosis due to bulges at T3-T4, T5-T6, T10-T11 and T11-T12. Prior Therapy: 11/11/22 - left genicular nerve blocks S/p RFA cervical x 2 (C7-T1) Fusion C3-6 in 2016 Lower back sx L4-S1 (discectomy) 1983 Left knee pain (s/p sx x 2; meniscal repair x 2) H/o b/l ankle fx about 4 years ago Smokes 3/4 ppd FUNCTIONAL STATUS: independent ACTIVE PROBLEM LIST Colitis Hypertension Multiple Sclerosis (Hcc) Ulcerative Colitis (Hcc) Diabetes Mellitus (Hcc) Paroxysmal A-Fib (Hcc) Tobacco Dependence Dyslipidemia Atrial Fibrillation (Hcc) Anxiety and Depression Cardiomyopathy (Hcc) Lv (Left Ventricular) Mural Thrombus Obesity, Class I, Bmi 30-34.9 Chronic Fatigue Kyphosis Myofascial Pain Syndrome Chf (Congestive Heart Failure) (Hcc) Copd (Chronic Obstructive Pulmonary Disease) (Hcc) Gerd (Gastroesophageal Reflux Disease) Renal Insufficiency Intervertebral Thoracic Disc Disorder With Myelopathy, Thoracic Region Spinal Stenosis, Multiple Sites in Spine Wound Infection After Surgery PAST MEDICAL HISTORY Diagnosis Date Anxiety and depression Atrial fibrillation (HCC) Dr. Butler following- pt states blood clot in heart Cardiomyopathy (HCC) Cervical myelopathy (HCC) CHF (congestive heart failure) (HCC) Cognitive impairment on aricept Colitis COPD (chronic obstructive pulmonary disease) (HCC) Diabetes (HCC) Dr. Flores following Dyslipidemia Full dentures GERD (gastroesophageal reflux disease) GI bleed 2020 History of loop recorder pt reports battery is [place] (hard of hearing) Hypertension controlled with meds IBS (irritable bowel syndrome) Multiple sclerosis ([facility]) Dr. Woods Myocardial infarct, old 03/2016 Obesity Pain management Pancreatitis ([facility]) [address] Greenfield RLS (restless legs syndrome) Sleep apnea no cpap since loosing 100lbs Tobacco dependence quit 12/26 Urinary incontinence Wears glasses PAST SURGICAL HISTORY Procedure Laterality Date BACK SURGERY HX lower x3 CARPAL TUNNEL lt and rt COLONOSCOPY FLX DX W/COLLJ SPEC WHEN PFRMD 10/12/2014 Colonoscopy inpt [facility] COLONOSCOPY FLX DX W/COLLJ SPEC WHEN PFRMD 02/28/2015 Colonoscopy EYE SURGERY HX Bilateral cataract FINGER SURGERY HX thumb reconstructed KNEE SURGERY HX lt x2 PAST SURGICAL HISTORY OF partial amputation of big toe PAST SURGICAL HISTORY OF Left 01/25/2015 great toe removal PAST SURGICAL HISTORY OF Bilateral 08/2022 C3 and C6 nerve ablasions PAST SURGICAL HISTORY OF calcium removed from breast TONSILLECTOMY HX TUBAL LIGATION HX Social History Tobacco Use Smoking status: Every Day Current packs/day: 0.00 Average packs/day: 1 pack/day for 51.0 years (51.0 ttl pk-yrs) Types: Cigarettes Start date: 01/04/1973 Last attempt to quit: 12/27/2023 Years since quittin.6 Smokeless tobacco: Never Tobacco comments: Less than 10 Vaping Use Vaping status: Never Used Substance Use Topics Alcohol use: Yes Comment: 1-2 times per year flavored beer Drug use: No FAMILY HISTORY Problem Relation Age of Onset No Ocular Disease Father Cancer Father lung No Ocular Disease Mother Cancer Mother pancreatic Multiple Sclerosis No Family History ALLERGIES Allergen Reactions Aspirin Other: See Comments To high doses Indomethacin Other: See Comments Trazodone Intolerance Unable to wake up Vancomycin Shortness of Breath VANCO IV, during hospitalization Imitrex [Sumatripta* Vomiting BP went down Abilify [Aripiprazo* Other: See Comments Excessive drooling Clindamycin Intolerance Darvocet A500 [Prop* Intolerance Iodinated Contrast * Other: See Comments 30 yrs ago Iodine Intolerance rash Metformin GI Upset Stomach spasms Propoxyphene Other: See Comments CURRENT MEDICATIONS: modafinil (PROVIGIL) 200 mg tablet Take 1 tablet by mouth once daily for 180 days. donepezil (ARICEPT) 10 mg tablet Take 2 tablets by mouth once daily. lidocaine (LIDODERM) 5 % Apply 1-2 Patches as directed once daily. TO AFFECTED AREA. REMOVE AFTER 12 HOURS. tirzepatide (MOUNJARO) 10 mg/0.5 mL pen injector Inject 10 mg subcutaneously one time a week. tiZANidine (ZANAFLEX) 2 mg tablet 2 mg po qam and 2-4 mg qhs prn for pain control mupirocin (BACTROBAN) 2 % ointment Apply to nostrils twice daily x 5 days once per month. QUEtiapine (SEROQUEL) 25 mg tablet Take 25 mg by mouth daily at bedtime. fluorometholone (FML LIQUID FILM) 0.1 % ophthalmic suspension Instill 1 drop in both eyes twice a day (Patient taking differently: Use 1 drop in both eyes two times a day. Instill 1 drop in both eyes twice a day) triamcinolone acetonide (KENALOG) 0.1 % cream Apply thin film on right thigh once or twice daily as needed. No longer than 2 weeks in a row. furosemide (LASIX) 20 mg tablet Take 1 tablet by mouth once daily. PRN LE Edema ramelteon (ROZEREM) 8 mg tablet Take 8 mg by mouth at bedtime as needed. losartan (COZAAR) 50 mg tablet 50 mg twice daily. carvedilol (COREG) 12.5 mg tablet Take 12.5 mg by mouth twice daily with meals. insulin lispro (HUMALOG KWIKPEN INSULIN) 100 unit/mL Use with meals based on PRE meal blood sugar SLIDING SCALE as needed #1 (1 for 50 over 150) ~20 units daily Insulin Scarbro, Disposable, (BD ULTRAFINE III MINI PEN) 31 gauge x 3/16 Uses 4 per day with insulin injection. flash glucose sensor (FREESTYLE JANAY 2 SENSOR) kit Change sensor every 14 days. USE FOR CONTINUOUS GLUCOSE MONITORING. MULTIPLE INSULIN INJECTIONS. E11.9 QUEtiapine (SEROQUEL) 100 mg tablet Take 100 mg by mouth daily at bedtime. ondansetron (ZOFRAN) 4 mg tablet Take 1 tablet by mouth every 8 hours as needed for nausea/vomiting. rOPINIRole (REQUIP) 1 mg tablet Take 2 mg by mouth daily at bedtime. acetaminophen (TYLENOL) 500 mg tablet Take 1,000 mg by mouth every 6 hours as needed for pain. apixaban (ELIQUIS) 5 mg tab(s) Take 5 mg by mouth two times a day. 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 vibegron (GEMTESA) 75 mg tablet Take 75 mg by mouth once daily. nitroglycerin sublingual (NITROQUICK) 0.4 mg SL tablet Dissolve 0.4 mg under the tongue every 5 minutes as needed. pantoprazole DR (PROTONIX) 40 mg tablet Take 40 mg by mouth once daily. DULoxetine (CYMBALTA) 30 mg capsule Take 30 mg by mouth twice daily. dicyclomine (BENTYL) 20 mg tablet Take 20 mg by mouth twice daily as needed. PROLIA 60 mg/mL once every 6 months. June and January per pt atorvastatin (LIPITOR) 40 mg tablet Take 40 mg by mouth once daily. ascorbic acid, vitamin C, (VITAMIN C) 500 mg tablet Take 1 tablet by mouth once daily. sucralfate (CARAFATE) 1 gram tablet Take 1 tablet by mouth four times daily. Cholecalciferol, Vitamin D3, 5,000 unit cap Take 1 capsule by mouth once daily. rOPINIRole (REQUIP) 1 mg tablet Take 1 mg by mouth daily with lunch. aspirin, enteric coated (ASPIRIN, ENTERIC COATED) 81 mg EC tablet Take 81 mg by mouth once daily. 01/11 LAST DOSE -7 DAYS PRIOR TO SURGERY PER DRY HOUSE TENDER FOR SURGERY 01/20/24 isosorbide mononitrate ER (IMDUR) 30 mg 24 hr tablet Take 1 tablet by mouth two times a day. Cranberry 500 mg cap Take by mouth every morning. STOPPING FOR SURGERY 01/06/24 SURGERY 01/20/24 [DISCONTINUED] teriflunomide (AUBAGIO) 14 mg TAKE 1 TABLET BY MOUTH ONCE DAILY. pioglitazone (ACTOS) 30 mg tablet Take 30 mg by mouth once daily. REVIEW OF SYSTEMS: GENERAL: Denies fever, chills malaise and weight loss. HEENT: No recent change in vision or hearing. CARDIOVASCULAR: Denies chest pain, history of A-fib, valvular disease, or pacemaker/ICD. RESPIRATORY: Denies SOB, sputum production, and hemoptysis. GI: Denies GI ulcers, inflammatory disease, or liver disease. : Denies change in frequency or urgency, kidney disease, and burning with urination. MUSCULOSKELETAL: see hpi SKIN: Denies rash or itching. PSYCHOLOGICAL: Denies uncontrolled depression or anxiety. NEURO:see hpi and below ENDOCRINE: see below HEMATOLOGY/LYMPHOLOGY: Denies cancer, bleeding or clotting disorders, anemia,and DVT's. ALLERGIC/IMMUNOLOGICAL: Denies risks for infection, or recent MRSA infections. OBJECTIVE: PHYSICAL EXAM BP 110/56 (BP Site: Left Arm, BP Position: Sitting, BP Cuff Size: Regular Adult) Pulse 80 Ht 157.5 cm (5' 2) Wt 71.2 kg (157 lb) LMP 02/22/2000 (Approximate) SpO2 98% BMI 28.72 kg/m GENERAL APPEARANCE: age appropriate appearance, no apparent distress. NEURO PSYCH: Mood pleasant. Benign affect. SKIN: post surgical changes MUSCULOSKELETAL VISUAL INSPECTION CERVICAL: WNL THORACIC: very kyphotic LUMBAR: reduced lordosis SPINE ROM: LUMBAR ROM: reduced ROM With Pain in extension (-) facet loading but TTP in the right L4L5S1 facets and right SIJ Wall walking with impaired balance if not using Rollator (-) JLUIS, + right Yunior's, + thigh thrust, (-) pelvic compression, +Gaenselen's,+ Mallory's Data Review: [facility] records independently reviewed ASSESSMENT/PLAN 68 yo woman with PMH anxiety, depression, afib on eliquis, CHrEF 2/2 CM, colitis, COPD, DM, HPL, h/o GIB, HTN, h/o [place], obesity, pancreatitis, RLS, MS, cognitive impairments, cervical myelopathy, h/o cervical fusion C3C6 x 1 and lumbar fusion x 3 with evident fusion at L4L5 (apparent graft) The cervical spine issues more likely myofascial and scar sensitivity. MRI L spine completed with severe canal stenosis at L3L4 and foraminal stenosis at L4L5 and L5S1 but also with localizer views showing likely severe canal stenosis at T10/T11 and possible myelomalacia. There is evidence of compression fx at T11 MRI T spine later completed showing T spine degenerative changes, worst at T10-T11 with severe canal stenosis and focal cord compression. S/p T10-T11 lami and L3-L4 lami 01/20/24 and later needs for I & D on 02/19/24 d/t wound dehis and signs of infection with Dr. Mackenzie/TIGIST She is continuing to work with [facility] at this point and should continue to keep working on strength, core and balance. Having right SIJ pain and + 4/5 loading manuvers (facet loading (-)) Given spasticity, on zanaflex 2mg qm and 2-4 mg pm- refilled for next batch Lidocaine 5% TD 1-2 patches daily prn- can use near scar as long as skin not open Add tylenol 1000mg tid for first week, then prn after that Would continue with PT. Yesterday lumbar xr with mild DJD right SIJ and very posterior sacrum - if need later SIJ injection would need to able to lay supine for procedure and today had bit of a hard time doing so. F/u 3 -6 months Sudden neuro decline - to ER Patient understands above plan; questions asked and answered. Medication options, including side effects, were discussed in detail. Education was given regarding signs and symptoms that would indicate a serious change in condition, and they were instructed to seek care immediately should these arise. Patient agrees to plan as noted above. These notes are used for the purpose of medical documentation and that for use for other medical providers. Jargon expressed here is intentioned for use under this context. Meka Webb MD. I spent a total of 35 minutes on the date of the service which included preparing to see the patient, [id number] patient care, completing clinical documentation, performing a medically appropriate examination, counseling and educating the patient/family/caregiver, and ordering medications, tests, or procedures. Patient presents with chief complaints of right hip and low back pain. Any new or significant change in pain? no Worst level of pain, 1-10, with 1 being mild discomfort is 8 PAIN INCREASED BY: OTHER moving PAIN DECREASED BY: MEDICATION THERAPEUTIC INTERVENTIONS: PHYSICAL THERAPY LAND, INJECTIONS, CHIROPRACTIC TREATMENT, and MEDICATION The following tests/records were reviewed: na. Do you need any refills today from the doctor?yes Courtney Schultz RN documented in this encounter [facility] 08-05-2024 Note [facility] 08-04-2024 Note [facility] 08-04-2024 History of Present illness Narrative Summary: xray Radiology Service Progress Note PATIENT NAME: Elo Gray DATE OF SERVICE: August 04, 2024 TIME: 10:08 AM PATIENT IDENTITY VERIFICATION COMPLETED USING TWO (2) IDENTIFIERS: Name and Date of confirmed by patient verbally. FALL SCREENING: Has the patient had 2 falls in the last year or 1 fall with injury or currently using an Ambulatory Assistive Device (Walker, Cane, Wheelchair, Crutches, etc.)? No PATIENT GENDER DATA: Assigned female at . status: : No status: N/A PATIENT RELEVANT IMPLANT DATA REVIEWED: Not Applicable PATIENT PRESENTS WITH AN IMPLANTABLE OR ATTACHED MARKETING PROFESSOR: No RADIOLOGY DEPARTMENT: General X-ray: Exam(s) Completed: Spine X-Ray(s): Lumbar AP / LAT / L5-S1 / FLEX-EXT PERIPHERAL IV DATA: Not applicable SIGNED BY: RT Chemo(R) August 04, 2024 10:08 AM documented in this encounter [facility] 08-04-2024 Note [facility] 08-03-2024 Telephone encounter Note Summary: appointment lvm for patient to call so we can move her neuro test to september [facility] 08-03-2024 Miscellaneous Notes Summary: appointment lvm for patient to call so we can move her neuro test to september documented in this encounter [facility] 08-03-2024 Note [facility] 08-03-2024 History of Present illness Narrative Images from the original note were not included. [facility] FOR MULTIPLE SCLEROSIS FOLLOWUP/ESTABLISHED PATIENT VIRTUAL VISIT PRINCIPAL NEUROLOGIC DIAGNOSIS: Multiple sclerosis DISEASE SUMMARY Date of onset: 12/1998 Date of diagnosis of MS: 1998 Disease course at onset: Progressive with relapses Current disease course: Progressive with relapses Previous disease therapies: Glatiramer acetate 2002, [id number], [id number] Fingolimod 07/2014-04/2016 (switched because of heart issues - had heart attack) Teriflunomide 7 mg 04/2016-10/2016 Prednisone x 10 days 03/2017 IVMP 01/25/17 x 1 dose Teriflunomide 14 mg daily Kesimpta (started 01/2022- stopped due to concerns of facial nodules/excoriation) Current disease therapy: None Most recent MRI brain: 07/27/23 Most recent MRI cervical spine: 08/22/22 Most recent MRI thoracic spine: 08/22/22 CSF: 1998 JCV serology result and date: NA CHIEF COMPLAINT: Follow-up off MS disease modifying therapy INTERVAL HISTORY: Usual treating team: Pako/Carlos I have communicated my name and active licensure. The patient's identity and physical location were verified at the time of this visit. Either the patient or their legal airport representative has been informed of the risks and benefits of -- and alternatives to -- treatment through a remote evaluation and consents to proceed with the evaluation remotely. Today's visit is being completed virtually; pt consented. Accompanied by self. Last seen 07/28/24. Currently not on DMT. Saw [place] 07/28/24 for urgent visit after hospitalizations for reported dx with H pylori, gastritis, swollen pancreatic ducts, hypokalemia, and dehydration. She was readmitted for MRCP, stenting and stone removal - urology rechecked urine yesterday for UTI - still having some urinary symptoms Feels exhausted/MS fog - maybe slightly improved She asked GI to send us records at follow-up - had follow-up last Thursday. Reports they ordered a swallowing test and then saw regular GI yesterday and ordered another swallow test (barium swallow she thinks is one of them but cannot recall) - September 12 and - she will have stents removed in September Considering repeat neuropsych testing Hoping to get back to [facility] on Thursday - hasn't been feeling well enough Had a PLASTICS FABRICATOR OR WELDER for a while until she quit. Doesn't have one currently REVIEW OF SYSTEMS: Mood: PHQ9 responses reviewed and appear below Pain:reviewed on nursing intake documentation Memory/Concentration: see HPI Neuro-QoL Functions (higher=better functioning) Flowsheet Row [facility] from 07/28/2024 in Neurology [facility] from 12/24/2023 in [facility] Office Visit from 11/10/2023 in [facility] Upper Extremity Domain T Score 38 34 38 Lower Extremity Domain T Score 37 37 37 Cognitive Function Domain T Score 26 35 35 Positive Affect Well Being T Score -- -- -- Ability To Participate In Social Roles T Score 41 42 42 Satisfaction With Social Roles T Score 42 43 42 Neuro-QoL Symptoms (higher=worse symptoms) Flowsheet Row [facility] from 07/28/2024 in Neurology [facility] from 12/24/2023 in [facility] Office Visit from 11/10/2023 in [facility] Sleep Domain T Score 70 68 69 Fatigue Domain T Score 66 58 56 Anxiety Domain T Score 57 56 52 Depression Domain T Score 59 54 51 Stigma Domain T Score 61 63 63 Emotional Behavior Dyscontrol T Score -- -- -- PAST HISTORY was reviewed and updated: PAST MEDICAL HISTORY Diagnosis Date Anxiety and depression Atrial fibrillation (HCC) Dr. Butler following- pt states blood clot in heart Cardiomyopathy (HCC) Cervical myelopathy (HCC) CHF (congestive heart failure) (HCC) Cognitive impairment on aricept Colitis COPD (chronic obstructive pulmonary disease) (HCC) Diabetes ([facility]) Dr. Flores following Dyslipidemia Full dentures GERD (gastroesophageal reflux disease) GI bleed 2020 History of loop recorder pt reports battery is [place] (hard of hearing) Hypertension controlled with meds IBS (irritable bowel syndrome) Multiple sclerosis ([facility]) Dr. Woods Myocardial infarct, old 03/2016 Obesity Pain management Pancreatitis [address] Greenfield RLS (restless legs syndrome) Sleep apnea no cpap since loosing 100lbs Tobacco dependence quit 12/26 Urinary incontinence Wears glasses PAST SURGICAL HISTORY Procedure Laterality Date BACK SURGERY HX lower x3 CARPAL TUNNEL lt and rt COLONOSCOPY FLX DX W/COLLJ SPEC WHEN PFRMD 10/12/2014 Colonoscopy inpt [facility] COLONOSCOPY FLX DX W/COLLJ SPEC WHEN PFRMD 02/28/2015 Colonoscopy EYE SURGERY HX Bilateral cataract FINGER SURGERY HX thumb reconstructed KNEE SURGERY HX lt x2 PAST SURGICAL HISTORY OF partial amputation of big toe PAST SURGICAL HISTORY OF Left 01/25/2015 great toe removal PAST SURGICAL HISTORY OF Bilateral 08/2022 C3 and C6 nerve ablasions PAST SURGICAL HISTORY OF calcium removed from breast TONSILLECTOMY HX TUBAL LIGATION HX MEDICATIONS and ALLERGIES were reviewed and updated. SOCIAL HISTORY was reviewed and updated: Current living situation: At home Current vocational status: On disabiltiy EXAM: General Appearance: well appearing, in no acute distress Mental status evaluation during the interview and examination showed Reported difficulties: memory word finding concentration / attention Affect: Normal Speech: normal RESULTS: Monitoring labs: CBC + Diff Component Value Date WBC 6.41 07/29/2024 HB 11.1 (L) 07/29/2024 HCT 35.2 (L) 07/29/2024 PLT 260 07/29/2024 ABSLYMPH 1.50 07/29/2024 CMP Component Value Date AST 9 (L) 07/29/2024 GLUC 171 (H) 07/29/2024 BUN 20 07/29/2024 CREAT 0.64 07/29/2024 NA 135 (L) 07/29/2024 K 3.8 07/29/2024 CHLOR 102 07/29/2024 ALT 26 07/29/2024 MRI brain: No new brain MRI to review ASSESSMENT: Elo Gray is a 68 year old female with multiple sclerosis. Patient is not currently on DMT. She is scheduled for updated MRIs 08/12/24. Disease activity in MS is often not immediately detectable on history or examination, but is sensitively identified on MRI. If identified, new or active MS lesions on MRI may represent suboptimal response to MS therapy, and would change medical management. Reports increase in symptoms after recent hospitalization/health changes (MRCP/stenting/UTI). Will continue to monitor and obtain MRI. Consider repeat neuropsych testing but recommend waiting until health issues have resolved and feeling closer to baseline. She will continue to follow with GI/urology and other specialists as directed. PLAN: 1. Continue to monitor off DMT 2. MRI as planned 3. Specialists as directed 4. Reschedule neuropsych testing tentatively for late September 5. Follow-up after MRI or sooner if needed I spent a total of 30 minutes on the date of the service which included preparing to see the patient, [id number] patient care, completing clinical documentation, obtaining and/or reviewing separately obtained history, counseling and educating the patient/family/caregiver, ordering medications, tests, or procedures, and communicating results to the patient/family/caregiver. Bill Woods PA-C documented in this encounter [facility] 08-02-2024 Telephone encounter Note [facility] office visit: 11/10/2023 [facility] virtual visit: 07/28/2024 Labs reviewed. ALT Date Value Ref Range Status 07/29/2024 26 7 - 38 U/L Final AST Date Value Ref Range Status 07/29/2024 9 (L) 13 - 35 U/L Final Creatinine Date Value Ref Range Status 07/29/2024 0.64 0.58 - 0.96 mg/dL Final 02/22/2024 0.48 (L) 0.51 - 0.95 mg/dL Final Comment: Patients receiving either N-Acetylcysteine (NAC) or Metamizole prior to venipuncture, may have falsely depressed results. 02/21/2024 0.54 0.51 - 0.95 mg/dL Final Comment: Patients receiving either N-Acetylcysteine (NAC) or Metamizole prior to venipuncture, may have falsely depressed results. 02/20/2024 0.64 0.51 - 0.95 mg/dL Final Comment: Patients receiving either N-Acetylcysteine (NAC) or Metamizole prior to venipuncture, may have falsely depressed results. CrCl cannot be calculated (Unknown ideal weight.). [facility] website checked and validated. All prescriptions have been APPROPRIATELY filled. No suspicious activity was identified. 08/02/2024 by Amy NORWOOD APRN.PUBLIC RELATIONS WRITER The following approved medication requests have been transmitted electronically. Requested Prescriptions Signed Prescriptions Disp Refills modafinil (PROVIGIL) 200 mg tablet 30 tablet 5 Sig: Take 1 tablet by mouth once daily for 180 days. Authorizing Provider: AMY NORWOOD APRN.PUBLIC RELATIONS WRITER [facility] 08-02-2024 Miscellaneous Notes [facility] office visit: 11/10/2023 [facility] virtual visit: 07/28/2024 Labs reviewed. ALT Date Value Ref Range Status 07/29/2024 26 7 - 38 U/L Final AST Date Value Ref Range Status 07/29/2024 9 (L) 13 - 35 U/L Final Creatinine Date Value Ref Range Status 07/29/2024 0.64 0.58 - 0.96 mg/dL Final 02/22/2024 0.48 (L) 0.51 - 0.95 mg/dL Final Comment: Patients receiving either N-Acetylcysteine (NAC) or Metamizole prior to venipuncture, may have falsely depressed results. 02/21/2024 0.54 0.51 - 0.95 mg/dL Final Comment: Patients receiving either N-Acetylcysteine (NAC) or Metamizole prior to venipuncture, may have falsely depressed results. 02/20/2024 0.64 0.51 - 0.95 mg/dL Final Comment: Patients receiving either N-Acetylcysteine (NAC) or Metamizole prior to venipuncture, may have falsely depressed results. CrCl cannot be calculated (Unknown ideal weight.). [facility] website checked and validated. All prescriptions have been APPROPRIATELY filled. No suspicious activity was identified. 08/02/2024 by Amy NORWOOD APRN.CNP The following approved medication requests have been transmitted electronically. Requested Prescriptions Signed Prescriptions Disp Refills modafinil (PROVIGIL) 200 mg tablet 30 tablet 5 Sig: Take 1 tablet by mouth once daily for 180 days. Authorizing Provider: AMY NORWOOD APRN.CNP Source : electronic from pharmacy requesting refill. Delivery : e-script Requested Prescriptions Pending Prescriptions Disp Refills modafinil (PROVIGIL) 200 mg tablet [Pharmacy Med Name: modafinil 200 mg tablet] 30 tablet 5 Sig: Take 1 tablet by mouth once daily. DX : Patient last seen: 07/28/2024 Next Appointment : 08/03/2024 Tiffanie Cline documented in this encounter [facility] 08-02-2024 Telephone encounter Note [facility] office visit: 11/10/2023 [facility] virtual visit: 03/04/2024 [facility] appt: Visit date not found Labs reviewed. ALT Date Value Ref Range Status 07/29/2024 26 7 - 38 U/L Final AST Date Value Ref Range Status 07/29/2024 9 (L) 13 - 35 U/L Final Creatinine Date Value Ref Range Status 07/29/2024 0.64 0.58 - 0.96 mg/dL Final 02/22/2024 0.48 (L) 0.51 - 0.95 mg/dL Final Comment: Patients receiving either N-Acetylcysteine (NAC) or Metamizole prior to venipuncture, may have falsely depressed results. 02/21/2024 0.54 0.51 - 0.95 mg/dL Final Comment: Patients receiving either N-Acetylcysteine (NAC) or Metamizole prior to venipuncture, may have falsely depressed results. 02/20/2024 0.64 0.51 - 0.95 mg/dL Final Comment: Patients receiving either N-Acetylcysteine (NAC) or Metamizole prior to venipuncture, may have falsely depressed results. CrCl cannot be calculated (Unknown ideal weight.). The following approved medication requests have been transmitted electronically. Requested Prescriptions Signed Prescriptions Disp Refills donepezil (ARICEPT) 10 mg tablet 180 tablet 0 Sig: Take 2 tablets by mouth once daily. Authorizing Provider: AMY NORWOOD APRN.PUBLIC RELATIONS WRITER [facility] 08-02-2024 Miscellaneous Notes [facility] office visit: 11/10/2023 [facility] virtual visit: 03/04/2024 [facility] appt: Visit date not found Labs reviewed. ALT Date Value Ref Range Status 07/29/2024 26 7 - 38 U/L Final AST Date Value Ref Range Status 07/29/2024 9 (L) 13 - 35 U/L Final Creatinine Date Value Ref Range Status 07/29/2024 0.64 0.58 - 0.96 mg/dL Final 02/22/2024 0.48 (L) 0.51 - 0.95 mg/dL Final Comment: Patients receiving either N-Acetylcysteine (NAC) or Metamizole prior to venipuncture, may have falsely depressed results. 02/21/2024 0.54 0.51 - 0.95 mg/dL Final Comment: Patients receiving either N-Acetylcysteine (NAC) or Metamizole prior to venipuncture, may have falsely depressed results. 02/20/2024 0.64 0.51 - 0.95 mg/dL Final Comment: Patients receiving either N-Acetylcysteine (NAC) or Metamizole prior to venipuncture, may have falsely depressed results. CrCl cannot be calculated (Unknown ideal weight.). The following approved medication requests have been transmitted electronically. Requested Prescriptions Signed Prescriptions Disp Refills donepezil (ARICEPT) 10 mg tablet 180 tablet 0 Sig: Take 2 tablets by mouth once daily. Authorizing Provider: AMY NORWOOD APRN.PUBLIC RELATIONS WRITER Source : electronic from pharmacy requesting refill. Delivery : e-script Requested Prescriptions Pending Prescriptions Disp Refills donepezil (ARICEPT) 10 mg tablet [Pharmacy Med Name: donepezil 10 mg tablet] 180 tablet 3 Sig: Take 2 tablets by mouth once daily. DX : Patient last seen: 07/28/2024 Next Appointment : 08/03/2024 Tiffanie Cline documented in this encounter [facility] 08-02-2024 Telephone encounter Note Source : electronic from pharmacy requesting refill. Delivery : e-script Requested Prescriptions Pending Prescriptions Disp Refills modafinil (PROVIGIL) 200 mg tablet [Pharmacy Med Name: modafinil 200 mg tablet] 30 tablet 5 Sig: Take 1 tablet by mouth once daily. DX : Patient last seen: 07/28/2024 Next Appointment : 08/03/2024 Tiffanie Cline [facility] Work Phone: 08-02-2024 Telephone encounter Note Source : electronic from pharmacy requesting refill. Delivery : e-script Requested Prescriptions Pending Prescriptions Disp Refills donepezil (ARICEPT) 10 mg tablet [Pharmacy Med Name: donepezil 10 mg tablet] 180 tablet 3 Sig: Take 2 tablets by mouth once daily. DX : Patient last seen: 07/28/2024 Next Appointment : 08/03/2024 Tiffanie Cline [facility] Work Phone: 08-01-2024 Telephone encounter Note JEWELRY BENCH WORKER introduced self to patient and verified patient identity. Discussed recent lab work results with patient. Urine culture showing mixed microbiota, likely contaminated specimen. Recommended she reach out to her local urologist for continued management of recurrent UTI despite various antibiotic therapies. Also discussed elevated ALP 207. Given recent GI procedure, recommend patient reach out to local GI provider to make aware. Patient states she has requested that her GI provider sends over medical records to [place] office. Patient is completing formal swallow evaluation through different hospital system (states her GI provider has written and order for it). Discussed follow up at [place] within 1-3 months with Derrick Kinsey. Patient states she wants to keep her appointment with Carlos INFANTE next week. Amy Fowler APRN.CNP [facility] 08-01-2024 Miscellaneous Notes JEWELRY BENCH WORKER introduced self to patient and verified patient identity. Discussed recent lab work results with patient. Urine culture showing mixed microbiota, likely contaminated specimen. Recommended she reach out to her local urologist for continued management of recurrent UTI despite various antibiotic therapies. Also discussed elevated ALP 207. Given recent GI procedure, recommend patient reach out to local GI provider to make aware. Patient states she has requested that her GI provider sends over medical records to [place] office. Patient is completing formal swallow evaluation through different hospital system (states her GI provider has written and order for it). Discussed follow up at [place] within 1-3 months with Derrick Kinsey. Patient states she wants to keep her appointment with Carlos INFANTE next week. Amy Fowler APRN.CNP [place] Call Name of caller : Elo Relationship to patient: Self Return call phone number : [phone] Reason for call : Patient returning your call. States her phone was locked and unable to answer; she will be waiting for your call. documented in this encounter [facility] 08-01-2024 Telephone encounter Note [place] Call Name of caller : Elo Relationship to patient: Self Return call phone number : [phone] Reason for call : Patient returning your call. States her phone was locked and unable to answer; she will be waiting for your call. [facility] 08-01-2024 Miscellaneous Notes Called patient to request him to have x-rays done before seeing Dr Bright on 08-04-24. I had to leave a detailed VM documented in this encounter [facility] 08-01-2024 Telephone encounter Note Called patient to request him to have x-rays done before seeing Dr Bright on 08-04-24. I had to leave a detailed VM [facility] 08-01-2024 Telephone encounter Note 1132: Attempted to call patient to discuss recent lab results. Left voice message with call back number. 1449: Attempted to call patient to discuss recent lab results again. Voice message with call back number provided. [facility] Work Phone: 08-01-2024 Miscellaneous Notes 1132: Attempted to call patient to discuss recent lab results. Left voice message with call back number. 1449: Attempted to call patient to discuss recent lab results again. Voice message with call back number provided. documented in this encounter [facility] 07-29-2024 Telephone encounter Note Summary: appointment lvm for patient to call so we can get her scheduled for her mris,neuropsychological test and to push her follow up back 1-3 months [facility] 07-29-2024 Miscellaneous Notes Summary: appointment lvm for patient to call so we can get her scheduled for her mris,neuropsychological test and to push her follow up back 1-3 months documented in this encounter [facility] 07-28-2024 Instructions Amy Fowler APRN.CNP - 07/28/2024 5:38 PM EDT PLAN: 1- Lab orders were placed to check for infection and electrolyte imbalances. Please go to the lab for urine specimen and blood work. 2- MRI brain and cervical, orders were previously placed. Our schedulers will call you to assist in scheduling these. 3- I placed orders for a swallow evaluation. I can fax these orders to your local speech therapist or you can get it done through out speech therapy at [facility]. Should you choose to do local speech therapy, please send me contact number/ fax number to send the orders to. 4- An order has been placed for repeat NPT testing for your reported cognitive decline over time. I will ask our schedulers to help you schedule this at [place] as well. 5- Please try to allow access for [facility] to see your outside hospital records. If they are unable to share it via [employer], you can see if they will fax them to us at # 6- Continue to monitor off MS disease modifying therapy at this time. 7- Follow up with Bill LOPEZ/ Pako WITT team in 1-3 months Go to the emergency room should your symptoms continue to worsen or you develop shortness of breath, chest pain, worsening of swallowing, disorientation, severe headaches, sudden weakness, sudden numbness or tingling, or facial droop. documented in this encounter [facility] 07-28-2024 History of Present illness Narrative Images from the original note were not included. [facility] FOLLOWUP/ESTABLISHED VIRTUAL PATIENT VISIT PRINCIPAL NEUROLOGIC DIAGNOSIS: Multiple sclerosis DISEASE SUMMARY Date of onset: 12/1998 Date of diagnosis of MS: 1998 Disease course at onset: Progressive with relapses Current disease course: Progressive with relapses Previous disease therapies: Glatiramer acetate 2002, 5275-4421, 6450-3730 Fingolimod 07/2014-04/2016 (switched because of heart issues - had heart attack) Teriflunomide 7 mg 04/2016-10/2016 Prednisone x 10 days 03/2017 IVMP 01/25/17 x 1 dose Teriflunomide 14 mg daily Kesimpta (started 01/2022- stopped due to concerns of facial nodules/excoriation) Current disease therapy: None Most recent MRI brain: 07/27/23 Most recent MRI cervical spine: 08/22/22 Most recent MRI thoracic spine: 08/22/22 CSF: 1998 JCV serology result and date: NA CHIEF COMPLAINT: urgent visit Usual treating team: Pako/Carlos Today's visit is being completed virtually over [employer]. I have communicated my name and active licensure. The patient's identity and physical location were verified at the time of this visit. Either the patient or their legal airport representative has been informed of the risks and benefits of -- and alternatives to -- treatment through a remote evaluation and consents to proceed with the evaluation remotely. Patient consented to proceed with virtual visit. The patient is unaccompanied. The patient was last seen 03/04/2025, currently taking Not on DMT. Since the patient's last visit the patient reports overall feeling worse. INTERVAL HISTORY: Patient reports that starting in May 2024, she thought she had the flu/ UTI, she was prescribed an antibiotic by JEWELRY BENCH WORKER at [facility]. After 7 day course she did not feel better so she contacted her PCP. PCP rechecked her urine and prescribed antibiotic for UTI. A few days later she went to the ED for chest heaviness that radiated down left arm. Patient states that the ED ran tests, told her that her heart was fine and they switched her antibiotics again for UTI treatment. After the ED visit, she followed up with urologist who ordered a repeat culture. While awaiting results she developed abdominal pain with worse UTI symptoms so she returned to the ED on 07/10/24. Patient reports she had ultrasound and lab work, and was subsequently told she had H pylori, gastritis, swollen pancreatic ducts, low potassium, and severe dehydration. It was at this time she feels that her speech and cognition began to worsen. She reports that she alerted staff of this but there was no other workup completed to help speech and cognition while hospitalized. She was discharged home with antibiotics. On 07/18/24 she felt very ill, stating that when she went to the bathroom, she had a hard time remembering which side the nozzle was on to flush. She felt her reaction time was very much slowed from her baseline. She went to [facility] and was admitted. Per patient during this admission she underwent MRCP with stenting and stone removal. She reports possible delirium episode while hospitalized, where she woke up and did not know where she was. Again, she states she let staff know of her increased confusion and no further workup was done. She does not remember CT head being completed at any point. She was discharged home and told that she did not need antibiotics anymore as she did not have a UTI. She has had worsened speech, cognition, shaky hands, and fatigue throughout the infections/ hospitalizations over past two weeks. Speech: - feeling more slurred/ garbled - able to clear her secretions but does endorse having 2-4 episodes in the past two weeks where she gagged and/or choked on mucus causing her to drool - has NOT choked on food or drink - increased dry mouth - follows with speech therapy ([facility]), last visit was on Thursday - interested in formal swallow evaluation Cognition: - having a harder time finding words, getting more confused - slower reaction time when completing tasks, citing that it takes a longer time when lighting a cigarette as compared to before - would like to have a repeat NPT Urinary symptoms: - have persisted despite various antibiotics - urgency and frequency present - denies cloudy color or malodor She denies any recent falls, LOC, headaches, unilateral weakness or numbness. Does report infrequent episodes of alternating upper limbs having cold sensation and tingling, not painful. Balance is somewhat worse but gait has not changed. Has [facility] nurse that came to house on Thursday. Neuro-Qol Functions (higher = better functioning) 07/28/2024 12/24/2023 -- Upper Extremity Domain T Score 38 34 Patient-reported 07/28/2024 12/24/2023 -- Lower Extremity Domain T Score 37 37 Patient-reported 07/28/2024 12/24/2023 -- Cognitive Function Domain T Score 26 35 Patient-reported 07/28/2024 12/24/2023 -- Ability To Participate In Social Roles T Score 41 42 Patient-reported 07/28/2024 12/24/2023 -- Satisfaction With Social Roles T Score 42 43 Patient-reported Neuro-Qol Symptoms (higher = worse symptoms) 07/28/2024 12/24/2023 -- Sleep Domain T Score 70 68 Patient-reported 07/28/2024 12/24/2023 -- Fatigue Domain T Score 66 58 Patient-reported 07/28/2024 12/24/2023 -- Anxiety Domain T Score 57 56 Patient-reported 07/28/2024 12/24/2023 -- Depression Domain T Score 59 54 Patient-reported 07/28/2024 12/24/2023 -- Stigma Domain T Score 61 63 Patient-reported *NeuroQoL is a multi-domain patient-reported quality of life questionnaire PHQ-9 [employer] [facility] [employer] from 07/28/2024 in Neurology [facility] from 12/24/2023 in [facility] PHQ-9 Score 16 12 *PHQ-9 is a questionnaire for depressive symptoms, with scores 0-4 indicating none, 5-9 mild, 10-14 moderate, 15-19 moderately severe, and 20-27 severe symptoms. PROMIS-10 [employer] [facility] from 07/28/2024 in Neurology Office Visit from 03/29/2024 in Rehab Medicine Global Physical Health T Score 32.4 37.4 Global Mental Health T Score 31.3 41.1 0-10 Standard Pain Scale 3 3 *PROMIS-10 is a patient-reported quality of life measure, typically reported as physical and mental domains. Here scores are expressed as percentiles, where the lowest possible score is one, the highest possible score is 99, and 50 is average. PAST HISTORY was reviewed and updated PAST MEDICAL HISTORY Diagnosis Date Anxiety and depression Atrial fibrillation (HCC) Dr. Butler following- pt states blood clot in heart Cardiomyopathy ([facility]) Cervical myelopathy (HCC) CHF (congestive heart failure) ([facility]) Cognitive impairment on aricept Colitis COPD (chronic obstructive pulmonary disease) ([facility]) Diabetes ([facility]) Dr. Flores following Dyslipidemia Full dentures GERD (gastroesophageal reflux disease) GI bleed 2020 History of loop recorder pt reports battery is [place] (hard of hearing) Hypertension controlled with meds IBS (irritable bowel syndrome) Multiple sclerosis ([facility]) Dr. Woods Myocardial infarct, old 03/2016 Obesity Pain management Pancreatitis [address] Greenfield RLS (restless legs syndrome) Sleep apnea no cpap since loosing 100lbs Tobacco dependence quit 12/26 Urinary incontinence Wears glasses PAST SURGICAL HISTORY Procedure Laterality Date BACK SURGERY HX lower x3 CARPAL TUNNEL lt and rt COLONOSCOPY FLX DX W/COLLJ SPEC WHEN PFRMD 10/12/2014 Colonoscopy inpt [facility] COLONOSCOPY FLX DX W/COLLJ SPEC WHEN PFRMD 02/28/2015 Colonoscopy EYE SURGERY HX Bilateral cataract FINGER SURGERY HX thumb reconstructed KNEE SURGERY HX lt x2 PAST SURGICAL HISTORY OF partial amputation of big toe PAST SURGICAL HISTORY OF Left 01/25/2015 great toe removal PAST SURGICAL HISTORY OF Bilateral 08/2022 C3 and C6 nerve ablasions PAST SURGICAL HISTORY OF calcium removed from breast TONSILLECTOMY HX TUBAL LIGATION HX MEDICATIONS and ALLERGIES were reviewed and updated. SOCIAL HISTORY was reviewed and updated: Social History Tobacco Use Smoking status: Every Day Packs/day: 0.00 Years: 1 pack/day for 51.0 years (51.0 ttl pk-yrs) Types: Cigarettes Start date: 01/04/1973 Last attempt to quit: 12/27/2023 Years since quittin.5 Smokeless tobacco: Never Tobacco comments: Less than 10 Living situation: Living at home with assistance Employment Status / Disability: Disabled, permanently or temporarily EXAM: LMP 02/22/2000 (Approximate) General Appearance: well appearing, in no acute distress A+Ox3, although mental status evaluation during the interview and examination showed poor historian. Reported difficulties: memory word finding concentration / attention Affect: Normal Speech: dysarthric: garbled, smoking cigarette during virtual visit RESULTS: Monitoring labs: CBC + Diff Component Value Date WBC 5.71 02/22/2024 HB 10.9 (L) 02/22/2024 HCT 33.0 (L) 02/22/2024 PLT 263 02/22/2024 ABSLYMPH 1.40 09/24/2023 CMP Component Value Date AST 21 02/20/2024 GLUC 250 (H) 02/22/2024 BUN 10 02/22/2024 CREAT 0.48 (L) 02/22/2024 NA 139 02/22/2024 K 4.0 02/22/2024 CHLOR 108 (H) 02/22/2024 ALT 9 (L) 02/20/2024 No results found for: VITD25 Vitamin B12 Date Value Ref Range Status 11/10/2023 1,047 232 - 1,245 pg/mL Final TSH Date Value Ref Range Status 10/28/2021 1.393 0.358 - 3.740 mIU/L Final Comment: 3rd generation ultra sensitive TSH. No results found for: JCVIND, JCVAB IgG Date Value Ref Range Status 06/24/2023 723 700 - 1,600 mg/dL Final IgM Date Value Ref Range Status 06/24/2023 32 (L) 40 - 230 mg/dL Final CD3-CD19+ B Cell # Date Value Ref Range Status 11/10/2023 37 (L) 75 - 660 cells/uL Final Discrete MRI Results Component Value Date Brain New T2 Lesions None Site 07/27/2023 Brain Enhancing Lesions Not applicable 07/27/2023 Cervical Spine New T2 Lesions None 08/22/2022 Cervical Spine New T2 Lesions None 08/22/2022 Cervical spine enhancing lesions None 08/22/2022 Cervical spine enhancing lesions None 08/22/2022 MRI Results Discrete MRI Results Component Value Date Brain New T2 Lesions None Site 07/27/2023 Brain Enhancing Lesions Not applicable 07/27/2023 Cervical Spine New T2 Lesions None 08/22/2022 Cervical Spine New T2 Lesions None 08/22/2022 Cervical spine enhancing lesions None 08/22/2022 Cervical spine enhancing lesions None 08/22/2022 ASSESSMENT: Elo Gray is a 68 year old female with Multiple Sclerosis. She remains off DMT at this time. Was previously on Kesimpta but stopped due to facial nodules and excoriation. Patient is due for updated MRI brain and cervical to monitor for interval disease activity since being off DMT. She presents today for urgent visit. Comprehensive physical exam limited given nature of virtual visit. Subjectively patient is worse. She denies new neurological symptoms but reports worsening of existing neurological symptoms, mainly speech and cognition. Speech is more garbled and she feels she is having episodes of choking on mucus. Patient reports her cognitive function has declined as it is more difficult to find words, complete tasks as timely as before, and she is getting more confused at times. Patient has recent history of recurrent UTI, seemingly resistant to antibiotics, and GI issues which have hospitalization over the past month (MRCP with stenting), although unable to verify this recent history as these visits occurred at outside facility. She continues to endorse urinary symptoms of frequency and urgency at today's visit. Suspect she is experiencing worsening of symptoms in setting of illness/ infection. Will obtain UA/UC, CBC, and CMP to check for infection and/ or electrolyte imbalances. Due to change in speech and cognition, will place orders for swallow evaluation and repeat NPT respectively. Patient stated she has appointments to follow up with local GI, PCP, and psychiatry next week. Encouraged patient to allow for shared access of medical records through [employer] assistant and/ or request medical records be faxed to [facility] for more comprehensive care. PLAN: - Continue to monitor off DMT - MRI brain and cervical, orders were previously placed - Lab orders placed: UA/UC, CBC, CMP - MBS/ swallow evaluation orders placed - Continue to work with DIRECTOR HUMAN SERVICES/PT/ OT as previously established - Follow up with primary team 1-3 months, sooner if needed [facility] on 07/28/24 SWALLOW EVALUATION URINALYSIS, WITH MICROSCOPIC COMPLETE BLOOD COUNT AND DIFFERENTIAL COMPREHENSIVE METABOLIC PANEL CONSULT TO SPEECH THERAPY NEUROPSYCHOLOGICAL TESTING CONSULT BACTERIAL CULTURE, URINE Patient Health Education Discussed at Visit: Emotional Health/Wellness, Need for PCP, and Smoking Cessation Follow-up: In 2 months at [place] or Virtual Visit with [facility] APC I spent a total of 45 minutes on the date of the service which included preparing to see the patient, [id number] patient care, completing clinical documentation, obtaining and/or reviewing separately obtained history, performing a medically appropriate examination, counseling and educating the patient/family/caregiver, and ordering medications, tests, or procedures. Amy Fowler APRN.[place] [facility] for Multiple Sclerosis documented in this encounter [facility] 07-28-2024 Note [facility] 07-28-2024 Telephone encounter Note RN spoke with patient. Patient states she had a UTI and was treated with antibiotics a few weeks ago. Then she was having pain in her abdomen and side. Went to ER and was found to be dehydrated and had swollen pancreatic ducts. Underwent a MRCP with stenting and found stones. Does have a follow up with GI provider tomorrow. Since the MRCP she has had slurred speech, shaky hands, and increased confusion x 2 weeks. RN believes speech seems more garbled than slurred. These are all symptoms she has had in the past with MS flares. She does not have a headache, numbness, weakness, or facial drooping. Being that this has been ongoing for two weeks RN recommended sooner follow up visit to discuss symptoms. VV held for today at 1:45PM with first available [employer] JANICE. Patient verbalized understanding. No further questions at this time. JEAN MARIE Min [facility] 07-27-2024 Telephone encounter Note RN called, no answer. Left VM to call office back. RN called listed contact: Aubree Haywood, friend. No answer. Left VM asking to have Kendra call our office. JEAN MARIE Min [facility] 07-27-2024 Telephone encounter Note Call went right to voicemail, left message regarding MyChart message requesting appointment with Bill Woods. Included in message was [place] number for call back and notification of appt date/time for patient. [facility] 07-27-2024 Miscellaneous Notes Call went right to voicemail, left message regarding MyChart message requesting appointment with Bill Woods. Included in message was [place] number for call back and notification of appt date/time for patient. documented in this encounter [facility] 07-19-2024 Telephone encounter Note Nichelle is requesting most recent OV notes. Printed electronically signed OV notes and faxed. Received confirmation. Filed in drawer Jayleen Roche MA [facility] 07-19-2024 Miscellaneous Notes Nichelle is requesting most recent OV notes. Printed electronically signed OV notes and faxed. Received confirmation. Filed in drawer Jayleen Roche MA documented in this encounter [facility] 07-12-2024 Telephone encounter Note Refilled. [facility] 07-12-2024 Miscellaneous Notes Refilled. Patient phones requesting refills as follows: Last seen: 03/29/24 Last refill: 04/12/24 Requested Prescriptions Pending Prescriptions Disp Refills lidocaine (LIDODERM) 5 % 60 Patch 2 Sig: Apply 1-2 Patches as directed once daily. TO AFFECTED AREA. REMOVE AFTER 12 HOURS. Please review and advise. Janell Garcia documented in this encounter [facility] 07-08-2024 Telephone encounter Note Patient phones requesting refills as follows: Last seen: 03/29/24 Last refill: 04/12/24 Requested Prescriptions Pending Prescriptions Disp Refills lidocaine (LIDODERM) 5 % 60 Patch 2 Sig: Apply 1-2 Patches as directed once daily. TO AFFECTED AREA. REMOVE AFTER 12 HOURS. Please review and advise. Janell Garcia [facility] 07-07-2024 Telephone encounter Note That is fine! Glad she is doing so well! Continue to monitor sugars! [facility] 07-07-2024 Miscellaneous Notes That is fine! Glad she is doing so well! Continue to monitor sugars! Patient called in to notify Joseline Flores CNP that her PCP took her off of her Actos today. Also her HA1C was 6.4. She is wanting to make sure this change is okay with Joseline. Please let patient know if this is okay or not. She states that a mychart response would be fine. documented in this encounter [facility] 07-06-2024 Telephone encounter Note Patient called in to notify Joseline Flores CNP that her PCP took her off of her Actos today. Also her HA1C was 6.4. She is wanting to make sure this change is okay with Joseline. Please let patient know if this is okay or not. She states that a [employer] response would be fine. [facility] 05-27-2024 Telephone encounter Note [employer] assistant message sent to Pt, as requested, with instructions on how to link her Libreview with the [facility] patient portal for data sharing. Tenisha Messer RN May 27, 2024 3:35 PM [facility] 05-27-2024 Miscellaneous Notes [employer] assistant message sent to Pt, as requested, with instructions on how to link her Libreview with the [facility] patient portal for data sharing. Tenisha Messer RN May 27, 2024 3:35 PM Patient is requesting instructions through [employer] assistant to ground support agent CGM to [place] office Patient has FREESTYLE JANAY 2 sensor/director of accounts payable Thank you! documented in this encounter [facility] 05-26-2024 Telephone encounter Note Patient is requesting instructions through SHERPA assistant to ground support agent CGM to [place] office Patient has FREESTYLE JANAY 2 sensor/director of accounts payable Thank you! [facility] 05-26-2024 History of Present illness Narrative VIRTUAL VISIT PROGRESS NOTE I have communicated my name and active licensure. The patient's identity and physical location were verified at the time of this visit. Either the patient or their legal airport representative has been informed of the risks and benefits of -- and alternatives to -- treatment through a remote evaluation and consents to proceed with the evaluation remotely. CC Elo Gray is a 68 year old who presents today for blood sugar review, dm med dose review, adjust. HPI Diagnosed with diabetes mellitus type II, ~ 1999 Last endocrine OV 02/24/2024 Some elements copied from my note 02/24/2024 which have been updated where appropriate, and all reflect current medical decision making from date of this visit. HPI 05/26/2024 Sts has the 'crud' Body aches, fatigue Started on Thursday night Had back surgery - 01/19 lumbar/thoracic surgery Had infected incision Had to have second surgery 02/18 CURRENT DM MEDS Humalog SS IF NEEDED - uses approx 1 time daily - uses very minimally MOUNJARO 10 mg weekly injection ACTOS 30 mg 1 tab daily SMBG Type of Monitor: Other [employer] CGM 2 NOT SHARED, PATIENT REPORTS Frequency of Monitorin times a day BG Values: Breakfast: 120-130 Lunch: 150 Dinner: 140 Bed-time: Values over past week: Highest ; Lowest Hypoglycemia: no Diet: none specific Exercise: PT 2 times per week DM REVIEW OF SYSTEMS Last Eye Exam : orbital MRI, at last eye exam, hx of optic neuritis, 2024 - normal, new glasses Last Podiatry Exam: sees podiatry, great toe L foot amputation (infected blister) sees for nails Dr. Castaneda - next Dizziness: No Headaches: Yes - MS Memory Loss: Yes - MS Seizures: No Cardiorespiratory: negative, denies chest pain, pressure Claudication: no Dyslipidemia: Yes, controlled on medication High Blood Pressure: Yes, controlled on medication CURRENT LABS PCP checked 02/2024 6.8% Recent Labs 10/28/21 0139 10/28/21 0730 01/14/23 1106 06/24/23 1035 07/27/23 0932 09/24/23 1007 11/10/23 0845 01/05/24 0832 01/20/24 1954 02/18/24 1732 02/18/24 2019 02/19/24 0604 02/20/24 0528 02/21/24 0944 02/22/24 0454 ALT -- < > 9 < > 10 12 14 -- < > 12* -- 8* 9* -- -- AST -- < > 12* < > 11* 16 14 -- < > -- 17 14 21 -- -- TSH 1.393 -- -- -- -- -- -- -- -- -- -- -- -- -- -- TPROT -- < > 5.8* < > 6.6 6.3 6.1* -- < > 6.3 -- 5.7* 5.4* -- -- ALB -- < > 3.9 < > 4.0 4.2 3.7* -- < > 2.9* -- 2.7* 2.5* -- -- CA -- < > 10.1 < > 10.1 10.5* 9.7 10.4 < > 9.2 -- 9.2 8.5 9.1 9.6 TBILI -- < > 0.3 < > 0.5 0.4 0.3 -- < > 0.2 -- 0.2 0.2 -- -- ALKPHOS -- < > 78 < > 115 92 89 -- < > 140* -- 139* 116 -- -- GLUC -- < > 171* < > 202* 170* 142* 197* < > 140* -- 178* 174* 101* 250* BUN -- < > 19 < > 17 20 31* 21 < > 15 -- 16 19 13 10 CREAT -- < > 0.63 < > 0.60 0.61 0.79 0.72 < > 0.57 -- 0.61 0.64 0.54 0.48* NA -- < > 137 < > 135* 136 136 138 < > 138 -- 138 137 139 139 K -- < > 4.5 < > 3.7 4.7 4.7 3.8 < > -- 3.9 4.0 3.9 4.1 4.0 CHLOR -- < > 103 < > 102 103 104 107 < > 107 -- 109* 108* 108* 108* CO2 -- < > 25 < > 24 21* 23 27 < > 26 -- 24 23 26 25 ANION -- < > 9 < > 9 12 9 4* < > 5 -- 5 6 5 6 EGFROTH -- < > 97 < > 98 98 82 91 < > 99 -- 97 96 100 103 HBA1C -- < > 7.1* -- 6.7* -- 7.2* 6.8* -- -- -- -- -- -- -- B12 -- -- 324 -- -- >2,000* 1,047 -- -- -- -- -- -- -- -- < > = values in this interval not displayed. Recent Labs 10/28/21 0139 08/06/22 1059 01/14/23 1106 07/27/23 0932 09/24/23 1007 11/10/23 0845 01/05/24 0832 TG 112 -- 78 62 -- 81 -- CHOL 159 -- 109 131 -- 123 -- HDL 69 -- 71 82 -- 74 -- VLDL 22 -- 16 12 -- 16 -- LDL 68 -- 22 37 -- 33 -- FASTTIME 6 -- -- -- -- -- -- TCHDL 2.30 -- 1.54 1.60 -- 1.66 -- LDLHDL 0.99 -- 0.31 0.45 -- 0.45 -- NONHDL 90 -- 38 49 -- 49 -- HBA1C -- < > 7.1* 6.7* -- 7.2* 6.8* HBA0 -- -- 157 146 -- 160 148 B12 -- -- 324 -- >2,000* 1,047 -- < > = values in this interval not displayed. PAST MEDICAL HISTORY Diagnosis Date Anxiety and depression Atrial fibrillation (HCC) Dr. Butler following- pt states blood clot in heart Cardiomyopathy (HCC) Cervical myelopathy (HCC) CHF (congestive heart failure) (HCC) Cognitive impairment on aricept Colitis COPD (chronic obstructive pulmonary disease) (HCC) Diabetes (HCC) Dr. Flores following Dyslipidemia Full dentures GERD (gastroesophageal reflux disease) GI bleed 2020 History of loop recorder pt reports battery is [place]ANGA (hard of hearing) Hypertension controlled with meds IBS (irritable bowel syndrome) Multiple sclerosis (HCC) Dr. Woods Myocardial infarct, old 03/2016 Obesity Pain management Pancreatitis [address] Greenfield RLS (restless legs syndrome) Sleep apnea no cpap since loosing 100lbs Tobacco dependence quit 12/26 Urinary incontinence Wears glasses PAST SURGICAL HISTORY Procedure Laterality Date BACK SURGERY HX lower x3 CARPAL TUNNEL lt and rt COLONOSCOPY FLX DX W/COLLJ SPEC WHEN PFRMD 10/12/2014 Colonoscopy inpt [facility] COLONOSCOPY FLX DX W/COLLJ SPEC WHEN PFRMD 02/28/2015 Colonoscopy EYE SURGERY HX Bilateral cataract FINGER SURGERY HX thumb reconstructed KNEE SURGERY HX lt x2 PAST SURGICAL HISTORY OF partial amputation of big toe PAST SURGICAL HISTORY OF Left 01/25/2015 great toe removal PAST SURGICAL HISTORY OF Bilateral 08/2022 C3 and C6 nerve ablasions PAST SURGICAL HISTORY OF calcium removed from breast TONSILLECTOMY HX TUBAL LIGATION HX FAMILY HISTORY Problem Relation Age of Onset No Ocular Disease Father Cancer Father lung No Ocular Disease Mother Cancer Mother pancreatic Multiple Sclerosis No Family History Social History Tobacco Use Smoking status: Every Day Current packs/day: 0.00 Average packs/day: 1 pack/day for 51.0 years (51.0 ttl pk-yrs) Types: Cigarettes Start date: 01/04/1973 Last attempt to quit: 12/27/2023 Years since quittin.4 Smokeless tobacco: Never Tobacco comments: Less than 10 Vaping Use Vaping status: Never Used Substance Use Topics Alcohol use: Yes Comment: 1-2 times per year flavored beer Drug use: No Current Outpatient Medications Medication Sig tirzepatide (MOUNJARO) 10 mg/0.5 mL pen injector Inject 10 mg subcutaneously one time a week. lidocaine (LIDODERM) 5 % Apply 1-2 Patches as directed once daily. TO AFFECTED AREA. REMOVE AFTER 12 HOURS. tiZANidine (ZANAFLEX) 2 mg tablet 2 mg po qam and 2-4 mg qhs prn for pain control mupirocin (BACTROBAN) 2 % ointment Apply to nostrils twice daily x 5 days once per month. ferrous sulfate 325 mg (65 mg iron) tablet Take 1 tablet by mouth once daily. modafinil (PROVIGIL) 200 mg tablet Take 1 tablet by mouth once daily for 180 days. isosorbide mononitrate ER (IMDUR) 30 mg 24 hr tablet Take 1 tablet by mouth two times a day. Cranberry 500 mg cap Take by mouth every morning. STOPPING FOR SURGERY 01/06/24 SURGERY 01/20/24 varenicline (CHANTIX) 0.5 mg tablet Take 0.5 mg by mouth daily with breakfast. QUEtiapine (SEROQUEL) 25 mg tablet Take 25 mg by mouth daily at bedtime. fluorometholone (FML LIQUID FILM) 0.1 % ophthalmic suspension Instill 1 drop in both eyes twice a day (Patient taking differently: Use 1 Drop in both eyes two times a day. Instill 1 drop in both eyes twice a day) triamcinolone acetonide (KENALOG) 0.1 % cream Apply thin film on right thigh once or twice daily as needed. No longer than 2 weeks in a row. (Patient taking differently: two times a day as needed. Apply thin film on right thigh once or twice daily as needed. No longer than 2 weeks in a row. OF 01/04 RESOLVED) donepezil (ARICEPT) 10 mg tablet Take 2 tablets by mouth once daily. furosemide (LASIX) 20 mg tablet Take 1 tablet by mouth once daily. PRN LE Edema ramelteon (ROZEREM) 8 mg tablet Take 8 mg by mouth at bedtime as needed. losartan (COZAAR) 50 mg tablet 50 mg twice daily. carvedilol (COREG) 12.5 mg tablet Take 12.5 mg by mouth twice daily with meals. insulin lispro (HUMALOG KWIKPEN INSULIN) 100 unit/mL Use with meals based on PRE meal blood sugar SLIDING SCALE as needed #1 (1 for 50 over 150) ~20 units daily FARXIGA 10 mg tablet Take 1 tablet by mouth every morning. Insulin Scarbro, Disposable, (BD ULTRAFINE III MINI PEN) 31 gauge x 3/16 Uses 4 per day with insulin injection. flash glucose sensor (FREESTYLE JANAY 2 SENSOR) kit Change sensor every 14 days. USE FOR CONTINUOUS GLUCOSE MONITORING. MULTIPLE INSULIN INJECTIONS. E11.9 QUEtiapine (SEROQUEL) 100 mg tablet Take 100 mg by mouth daily at bedtime. ondansetron (ZOFRAN) 4 mg tablet Take 1 tablet by mouth every 8 hours as needed for nausea/vomiting. rOPINIRole (REQUIP) 1 mg tablet Take 2 mg by mouth daily at bedtime. acetaminophen (TYLENOL) 500 mg tablet Take 1,000 mg by mouth every 6 hours as needed for pain. apixaban (ELIQUIS) 5 mg tab(s) Take 5 mg by mouth two times a day. 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 vibegron (GEMTESA) 75 mg tablet Take 75 mg by mouth once daily. nitroglycerin sublingual (NITROQUICK) 0.4 mg SL tablet Dissolve 0.4 mg under the tongue every 5 minutes as needed. pioglitazone (ACTOS) 30 mg tablet Take 30 mg by mouth once daily. pantoprazole DR (PROTONIX) 40 mg tablet Take 40 mg by mouth once daily. DULoxetine (CYMBALTA) 30 mg capsule Take 30 mg by mouth twice daily. dicyclomine (BENTYL) 20 mg tablet Take 20 mg by mouth twice daily as needed. PROLIA 60 mg/mL once every 6 months. June and January per pt atorvastatin (LIPITOR) 40 mg tablet Take 40 mg by mouth once daily. ascorbic acid, vitamin C, (VITAMIN C) 500 mg tablet Take 1 tablet by mouth once daily. sucralfate (CARAFATE) 1 gram tablet Take 1 tablet by mouth four times daily. Cholecalciferol, Vitamin D3, 5,000 unit cap Take 1 capsule by mouth once daily. rOPINIRole (REQUIP) 1 mg tablet Take 1 mg by mouth daily with lunch. (Patient not taking: Reported on 05/04/2024) aspirin, enteric coated (ASPIRIN, ENTERIC COATED) 81 mg EC tablet Take 81 mg by mouth once daily. 01/11 LAST DOSE -7 DAYS PRIOR TO SURGERY PER DRY HOUSE TENDER FOR SURGERY 01/20/24 No current facility-administered medications for this visit. ALLERGIES Allergen Reactions Aspirin Other: See Comments To high doses Indomethacin Other: See Comments Trazodone Intolerance Unable to wake up Vancomycin Shortness of Breath VANCO IV, during hospitalization Imitrex [Sumatripta* Vomiting BP went down Abilify [Aripiprazo* Other: See Comments Excessive drooling Clindamycin Intolerance Darvocet A500 [Prop* Intolerance Iodinated Contrast * Other: See Comments 30 yrs ago Iodine Intolerance rash Metformin GI Upset Stomach spasms Propoxyphene Other: See Comments REVIEW OF SYSTEMS - POSITIVES IN BOLD GENERAL:No weight loss, malaise or fevers HEENT:Negative for frequent or significant headaches, No changes in hearing or vision, no nose bleeds or other nasal problems NECK:Negative for lumps, goiter, pain and significant neck swelling RESPIRATORY: Negative for cough, hemoptysis, wheezing, COPD, dyspnea or shortness of breath CARDIOVASCULAR: Negative for chest pain, leg swelling, hypertension, CHF or palpitations PHYSICAL EXAMINATION: GENERAL: alert and appropriate, in no distress and well-hydrated, well nourished SKIN: no rash noted HEAD: normocephalic, no abnormality or lesion noted EYES: PERRL NECK: full ROM, no cervical LNs noted ACANTHOSIS: none noted EXTREMITIES: normal NEUROLOGIC: no obvious deficit ASSESSMENT/PLAN (E11.9) Controlled type 2 diabetes mellitus without complication, 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 Recommended diet: Low carbohydrate and Low saturated fat, low simple sugar, high fiber diet Exercise minimally 150 minutes per week, increase as tolerated. Adequate hydration - 1/2 body wgt in oz of water daily, unless fluid restriction applies. I instructed the patient to monitor blood sugars 4 times per day If blood sugars are persistently high or low, to call our office. Patient to continue to follow up with her PCP and with other consultants regarding her other medical problems. Plan: COMPREHENSIVE METABOLIC PANEL, LIPID PANEL, NONFASTING, ALBUMIN/CREATININE RATIO, URINE, HEMOGLOBIN A1C Rosa Flores CNP Answers submitted by the patient for this visit: Core Review of Systems (Submitted on 05/26/2024) Fever : No Night sweats: No Recent unintentional weight change: No Nasal Congestion: No Hearing Loss: Yes Vision Disturbance: Yes A cough: No Difficulty Breathing?: No Chest pain: No Irregular heartbeat: No Leg Swelling: No Nausea: Yes - ulcer/hiatal hernia - endoscopy 05/16 - H PYLORI negative Difficulty Urinating?: Yes - chronic Awaken at Night More Than Once to Urinate?: Yes Joint pain or stiffness: Yes Muscle aches: Yes Leg or Foot Discomfort at Night?: Yes A rash: No documented in this encounter [facility] 05-26-2024 Note [facility] 05-04-2024 Note Date of Procedure 05/04/2024. Payroll Services Analyst Information Broom Stitcher: [email or web address]. Start time: 8:43 AM. Stop time: 8:43 AM. OCT Macula Interpretation Right Eye Normal without fluid. Left Eye Normal without fluid. Interval Change Right Eye Stable. Left Eye Stable. [facility] 05-04-2024 Note Date of Procedure 05/04/2024. Payroll Services Analyst Information Broom Stitcher: [email or web address]. Start time: 7:55 AM. Stop time: 8:26 AM. Reliability Right Eye Good. Left Eye Poor. Interpretation Right Eye Circumferential constriction. Left Eye Circumferential constriction. Interval Change Right Eye Initial. Left Eye Initial. [facility] 05-04-2024 Note [facility] 05-04-2024 History of Present illness Narrative 1. MS (multiple sclerosis) (HCC) 2. Optic nerve atrophy, bilateral -reviewed neuro note 03/04/24; progressive MS with relapses Previous disease therapies: Glatiramer acetate 2002, 5532-9021, [id number] Fingolimod 07/2014-04/2016 (switched because of heart issues - had heart attack) Teriflunomide 7 mg 04/2016-10/2016 Prednisone x 10 days 03/2017 IVMP 01/25/17 x 1 dose Teriflunomide 14 mg daily Kesimpta (started 01/2022- stopped due to concerns of facial nodules/excoriation -per last neuro note, Kesimpta stopped in 06/2023, off DMT now -BCVA: 20/25 OD, 20/20 OS -HVF 05/04/24: OD reliable with peripheral constriction 30 OS unreliable, with peripheral constriction, encroaching central -OCT nerve: (+) significant RNFL and GCL thinning OU, likely reflecting past bouts of optic neuritis OU Overall patient is doing well with good functional best corrected acuity OD/OS Visual field shows some peripheral constriction OU, she reports she is not currently driving Difficult to assess exchange trouble shooter time given lack of past baseline data Recommend annual OCT nerve and HVF going forward. We discussed the s/s of optic neuritis. Continue to follow with neuro team 3. Nonexudative age-related macular degeneration, bilateral, early dry stage -stable mac OCT, very mild condition -(+) smoker -Okay to monitor annually, not visually significant at this time -mac OCT at next visit per provider discretion 4. Vitreous degeneration of both eyes -stable, without peripheral retinal pathology -recommend annual monitoring 5. Pseudophakia -stable, monitor annually 6. Refractive error 7. Presbyopia -she accepts trial in office -released new spec Rx RTC one year for comprehensive exam + OCT nerve + HVF (OCT mac per provider discretion) Kourtney Purdy, CHRISTIE documented in this encounter [facility] 04-13-[address] Webb e-prescribed the Rx to Ms. Gray's pharmacy yesterday, 04/12/24. Closing this encounter. [facility] 04-13-[address] Webb e-prescribed the Rx to Ms. Gray's pharmacy yesterday, 04/12/24. Closing this encounter. Dr. Webb was sent a separate refill encounter request for the lidocaine patches for Ms. Gray. documented in this encounter [facility] 04-12-2024 Telephone encounter Note Refilled. [facility] 04-12-2024 Miscellaneous Notes Refilled. Patient last seen on 03/29/24 Last refill on 12/29/23 Patient phones requesting refills as follows: Requested Prescriptions Pending Prescriptions Disp Refills lidocaine (LIDODERM) 5 % 60 Patch 2 Sig: Apply 1-2 Patches as directed once daily. TO AFFECTED AREA. REMOVE AFTER 12 HOURS. Please review and advise. Leandra Maguire documented in this encounter [facility] 04-12-2024 Telephone encounter Note Patient last seen on 03/29/24 Last refill on 12/29/23 Patient phones requesting refills as follows: Requested Prescriptions Pending Prescriptions Disp Refills lidocaine (LIDODERM) 5 % 60 Patch 2 Sig: Apply 1-2 Patches as directed once daily. TO AFFECTED AREA. REMOVE AFTER 12 HOURS. Please review and advise. Leandra Maguire [facility] 04-12-[address] Webb was sent a separate refill encounter request for the lidocaine patches for Ms. Gray. [facility] 04-08-2024 Note [facility] 04-08-2024 History of Present illness Narrative Images from the original note were not included. [facility] Pre-Procedure Note Room: 9 SUBJECTIVE: Elo Gray is a 68 year old woman who presents to [facility] for TPIs. Since the last appointment, Ms. Gray has had some personal issues. She had sx 01/20/24 c/b incisional infection -> I&D Has been off ABX for at least a month w/o problem Afebrile w/o any sx for > month Feels as though the sx was successful - improved pain; can stand up straight Neck pain - chronic - we've discussed b/f Reports that her surgeon sent her here... She appreciated not a good way to request more opioid We reviewed that she was prescribed Percocet for prn use from me for a specific reason. This Percocet should not have been taken during postop treatment, so she should have some left. From 11/2022 note when Percocet was initiated: Has stationary bike at home; rides 10 min a day at least 3 times a week. If we agree to judicious occasional opioids (Percocet), she agrees to aim for daily use of the bicycle rather than only 3 days a week Took pix for her of neck and thoracic spine kyphosis - explained importance and role of core to prevent further degernation Carton cigs (#214) lasts her 14 days now - she will aim to make them last 16.5 days. This will take her from 15. Cigs per day to 13 cigs per day maximum Based on that, will provide #5 Percocet per month = one script for 15 Percocet to last at least 90 days My last script #18 filled 12/17/23 to last until 03/18/24 Explained that she should still have November's medication from me (#6) left - she has none left despite Dr. Mackenzie' medication. Will make a one-time exception and review opioid agreement so that Ms. Gray understands that PM medication is for prn occasional chronic sx. All and any other treating physicians, etc. are responsible for treating their own pain with whatever medication is deemed standard of care and necessary. Son in snf for amphetamines Patient feels safe He doesn't know about her opioids and she will not tell him Urines today and opioid agreement discussed and signed No increase in Percocet script today Will make an exception and start date today. Explained that medication discussion should occur at est f/u visit, not procedure visit for TPIs. Will do both today Pain Pain Level: 4 Pain Location: (back-neck) Description: Aching Intervention/Comfort measure: (TPI) 03/29/2024 04/08/2024 INTAKE PAIN ASSESSMENT Are you having pain associated with your visit today? Yes, Provider notified Yes, Provider notified Pain Scales Verbal (Numeric Rating or Visual Analog Scale) Pain Level 5 4 Pain Location Back-Middle -- Description Aching Aching Duration Amount of Time 20 Duration Units Minutes Years Frequency Intermittent Intermittent Intervention/Comfort measure Medication;Cold;Positioning -- Patient Entered Questionnaires PROMIS Score Percentiles 09/15/2023 12/24/2023 03/29/2024 PROMIS Global Health Scale Physical Health Percentile 10 10 10 Mental Health Percentile 19* 9 19* 08/26/2023 11/27/2023 03/29/2024 Physical Health Physical Function Percentile 14 5 10 Pain Interference Percentile 18* 5 16* Percentiles provide an indication of how the patient's score ranks in relation to the general population. Higher percentile rankings indicate better function/quality of life. 50th percentile is the average of the general population and indicates half of respondents had a worse score. > 31st percentile is within normal limits or better * < 31st percentile is at least SD worse than population, which may be clinically relevant < 16th percentile is at least 1 SD worse than population and warrants attention Descriptive Summary for PROMIS Physical Function T-score = 37 (Percentile 10) Much difficulty - Carry a laundry basket up a flight of stairs. Some difficulty - Walk at a normal speed. Unable - Walk more than a mile (1.6 km). Patient denies any contraindications to the procedure including , coagulopathy, infection, recent cerebral/myocardial infarct, and hemodynamic instability. OBJECTIVE: BP 126/70 Pulse 80 Temp (!) 35.8 C (96.4 F) (Temporal Artery) Resp 16 Ht 157.5 cm (5' 2) Wt 70.3 kg (155 lb) LMP 02/22/2000 (Approximate) SpO2 97% BMI 28.35 kg/m Significant changes in the patient's condition since the History and Physical: No INFORMED CONSENT: The procedure, risks, benefits and options were discussed with patient. There are no contraindications to the procedure. The patient expressed understanding and agreed to proceed. The personnel performing the procedure was discussed. I verify that I personally obtained Elo Gray's consent prior to the start of the procedure and the signed consent can be found on the patient's chart. UNIVERSAL PROTOCOL / SAFETY CHECKLIST Procedure to be Performed: TPIs Sign In: A Moment of CARE was completed. Personnel directly involved with the procedure wore the appropriate PPE (Personal Protective Equipment). Patient/Surrogate Stated/Verified: PATIENT VERIFIED(optional for EMERGENT procedures): Patient name, Date of , Relevant allergies, and The intended procedure Time Out Communication: Intended patient and procedure match the source documents. Consent documented and matches the intended procedure. Sign Out: SIGN OUT (optional for EMERGENT procedures): No specimen collected. Heather Davis MD PROCEDURE: TRIGGER POINT INJECTIONS - SCM, splenius cervicalis, trapezius mm Position: sitting Sites of pain confirmed prior to procedure Skin prepped with alcohol Needle: 25g 5/8 Q Negative aspiration for heme, air, CSF at all times and depths LA: bupiv 0.25% Approximate total volume of local anesthetic: 19 ml No paresthesias elicited. No complications were evident. No specimens collected. She tolerated the procedure well without apparent complications. [facility] Post-Procedure Note Patient name: Elo Gray Pre Procedure diagnosis: Encounter for long-term (current) use of medications (primary encounter diagnosis) Chronic, continuous use of opioids Chronic pain syndrome Other chronic pain Neck pain, chronic Post-Procedure diagnosis: (Z79.899) Encounter for long-term (current) use of medications (primary encounter diagnosis) (F11.90) Chronic, continuous use of opioids (G89.4) Chronic pain syndrome (G89.29) Other chronic pain (M54.2, G89.29) Neck pain, chronic (F17.200) Current smoker (Z86.59) History of recent stressful life event ASSESSMENT: Purposeful response to verbal or tactile stimulation: yes Neurological Status: Alert and oriented x 3 Awake, moving all extremities Post Procedure Pain Level: 0 on a scale of 0-10. Much more comfortable after procedure - able to get dressed, move around, ambulate with improved ROM and comfort Postoperative Nausea/Vomiting (PONV): absent PLAN: 1) s/p trigger point injections. 2) RTC in 2-3 months for Percocet script (90 day script each time) 3) Opioid agreement reviewed and signed today 4) C/w PT for neck core and posture 5) Stop smoking 6) If desires TPIs sooner than return for meds, she will MyChart for a separate appointment. 7) Urine tox and pain panel 8) The treatment plan was discussed with the patient. 9) Post procedure instructions were reviewed and the patient voiced understanding. Heather Davis MD I spent a total of [id number] minutes on the date of the service which included TPIs and a 15-minute discussion - completely separate and distinct from TPIs - re: opioids, medication use, exercise and expectations, and recent stressors. Encouraged gentle exercise, meditation, smoking cessation, and physiotherapy for posture and core. 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 yes documented in this encounter [facility] 04-08-2024 Note [facility] 03-30-2024 Telephone encounter Note Notified patient that Dr. Mackenzie sent in refill on Oxycodone, and he stated that this will be the last time he will refill this medication. Explained that pain management will have to provide pain medication going forward. Patient voiced understanding, and confirmed that she is seeing Pain Management on 04/08. Jazlyn Bermudez LPN [facility] 03-30-2024 Miscellaneous Notes Notified patient that Dr. Mackenzie sent in refill on Oxycodone, and he stated that this will be the last time he will refill this medication. Explained that pain management will have to provide pain medication going forward. Patient voiced understanding, and confirmed that she is seeing Pain Management on 04/08. Jazlyn Bermudez LPN documented in this encounter [facility] 03-29-2024 Note [facility] 03-29-2024 History of Present illness Narrative d 03/29/2024 PROMIS Global Health Physical Health Summary Physical health: Fair Everyday physical activity, ability: Moderately Fatigue: Moderate Pain level: 5 General health: Fair Social activities/roles, ability: Fair Physical Health T-Score 37.4 (Fair) Physical Health Percentile 10 PROMIS Global Health Mental Health Summary Quality of life: Fair Mental health (mood,thinking): Good Social satisfaction: Fair Emotional problems (anxious,depressed): Rarely Mental Health T-Score 41.1 (Good) Mental Health Percentile 19 NEURO-QOL Cognitive Function T-Score 43(Mild Dysfunction) Neuro-Qol Cognitive Function Percentile 24 PROMIS Physical Function T-Score 37(Moderate Dysfunction) PROMIS Physical Function Percentile 10 (Mild) PROMIS Pain Interference Percentile 16 Percentiles provide an indication of how a patient's score ranks in relation to the [place] general population. > 31st percentile is within normal limits or better *< 31st percentile is at least SD worse than population, which may be clinically relevant < 16th percentile is at least 1 SD worse than population and warrants attention Physical Medicine and Rehabilitation F/u patient March 29, 2024 SUBJECTIVE HISTORY OF PRESENT ILLNESS: Elo Gray is a 67 year old woman for f/u back pain Folliowing with pain management, Dr. Heather Davis Prior 3 low back (unclear dates, completed in [place], fusions) and 1 cervical surgeries (2016 in [place]) Since last eval, had surgery 01/20/24 T10-T11 lami and L3-L4 lami, then readmitted for I & D from infection with Dr. Avril ESCOTO. Was given IV vanco but had reaction and had to stop and then placed on bactrim and completed. Having some discomfort with incision and if moving wrong Has f/u with Dr. Buenrostro soon. Pain 08/04 Doing PT via [facility]- using [facility] in [place]- tolerating therapies. MRI L spine completed showing: Anatomic variant: None. Localizer images: No additional findings. Alignment: Thoracolumbar dextroscoliosis with apex of the curvature at L3. Straightening of the normal lumbar lordosis. Severe disc space narrowing is noted throughout the visualized spine with sparing of the L2-3 level. Bone marrow signal/fracture: No evidence of pathologic marrow infiltration. Mild asymmetric wedge deformity of the T11 vertebral body with normal signal intensity characteristics of the marrow suggesting remote benign compression fracture. Apparent bony fusion of the L4 and L5 vertebral bodies. Laminectomy defect is noted at L4-S1 and a right inferior facetectomy at L4. There may be a partial left facetectomy at this same level.. Suspicion of right unilateral chronic pars fracture at L5-S1. Conus: Mild disc osteophyte complex and facet degenerative changes appear to cause mild cord compression at T10-11. Patchy hyperintensity is noted in the cord at this same level which may reflect myelomalacia or intramedullary plaque in view of the clinical history of multiple sclerosis but the cord compression would favor the former. Paraspinal soft tissues: Disruption of the dorsal soft tissue planes compatible with the prior surgery. Lower thoracic spine: Mild disc osteophyte complex and facet degenerative changes cause mild cord compression at T10-11. Facet degenerative changes at T11-12 and minimal disc bulging at T12-L1 only minimally impinges on the canal. Facet degenerative changes and rostrocaudal facet subluxation cause moderate left and severe right T10-11 and mild right T11-12 foraminal stenosis. L1-L2: Mild osteophyte formation and facet degenerative change cause mild canal and mild left foraminal stenosis.. L2-L3: Mild facet degenerative change. Canal and foramina widely patent. L3-L4: Mild disc osteophyte complex, facet degenerative changes and developmentally short pedicles cause severe canal stenosis, right subarticular recess stenosis, and mild bilateral foraminal stenosis. L4-L5: Prior laminectomy. Canal and right neural foramen are patent. Bony hypertrophic changes cause mild left foraminal stenosis. L5-S1: Prior laminectomy. The canal is widely patent. Bony hypertrophic changes only mildly impinge on the neural foramina.. Sacrum and iliac wings: The visualized sacrum and iliac wings are within normal limits. IMPRESSION: Postop changes following dorsal decompression procedure at L4-S1. Severe severe canal, right subarticular recess and mild bilateral bony foraminal stenosis at L3-4. Mild cord compression bilateral bony foraminal stenosis and suspicion of mild myelomalacia or intramedullary plaque at T10-11. Previous MRI C/T spine and brain 08/22/22: Multiple intracranial white matter lesions compatible with multiple sclerosis. No new T2 lesions and no new enhancing lesions. Mild parenchymal volume loss. Other Significant Intracranial Findings: None No evidence of demyelinating disease in the cervical and upper thoracic spinal cord. No new T2 intramedullary lesions and no new enhancing intramedullary lesions. Mild upper spinal cord volume loss for age. Other Significant Cervical Spine Findings: No significant cervical canal or foraminal stenosis. Stable postop changes of laminectomies at C4-C6 and posterior fusion. Cervical Anatomic Variant: None. Assume 7 cervical vertebrae with counting from the craniocervical junction. Alignment: Alignment is anatomic. Stable severe loss of disc height at C5-C6 and C6-C7 reflecting degeneration. Stable moderate loss of disc height at C7-T1 reflecting degeneration Again noted are postoperative changes of posterior spinal fixation rods and pedicle screws extending from C4 through C6. Stable laminectomies are identified at C4-C6. No pseudomeningocele. Craniocervical Junction: Craniocervical junction is normal. Cord Findings: The visualized cord is within normal limits of signal intensity and morphology. Cord T2 Plaque [place]: None New T2 Lesions: None Interval Cord Improvement: None New Cord Enhancing Lesions: None Cord Volume Loss: Mild Bone marrow signal/fracture: No evidence of pathologic marrow infiltration. No evidence of prior fracture. Cervical soft tissues: The paraspinal soft tissues are within normal limits. Cervical Canal and foramina: No significant canal or foraminal stenosis in the visualized spine. No clear evidence of demyelination on this study however there is mild chronic cord compression at T10-T11 due to combination of degenerative disc and facet disease. There is questionable increased signal within the cord at this level suggesting myelomalacia. No pathologic enhancement. Localizer images: Unremarkable. Alignment: Alignment is anatomic. Moderate loss of disc height at T5-T6 reflecting degeneration. Cord: There is mild chronic cord compression at T10-T11 due to the presence of a disc bulge and redundant ligamentum flavum (series 19 image 9 and series 21 image 9). There is questionable increased signal within the cord at this level raising the specter of myelomalacia. Bone marrow signal/fracture: Again noted are-type II endplate changes adjacent to T10-T11 and T11-T12 and T12-L1. No evidence of pathologic marrow infiltration. Chronic less than 30% anterior compression deformity of T11 without dorsal displacement the posterior wall. Thoracic paraspinal soft tissues: The paraspinal soft tissues are within normal limits. Canal and foramina: Mild canal stenosis due to bulges at T3-T4, T5-T6, T10-T11 and T11-T12. Since last eval, planning for NSGY with Dr. Mackenzie decompression and thoracic facetectomy 01/20/24- T10-11 laminectomy for decompression and a L3-[address] T/L spine since completed after the MRI She has since quit smoking- none for past 3 days as has to quit prior to surgery. Recent issues at house and having to clean more than more than normal and likely aggravating back. She feels safe at home- son had some recent legal issues- living at her house but she feels safe at home Her pain level is currently 7 on a scale of 0-10. The pain is located in the midline thoracic spine and midline lumbar (intermittent only with sitting in low back x 1 year, slowly worse over time) Going to PT and this is helping. Alleviating Factors: Ice heat Zanaflex hs helps with sleep, but cannot take during day Percocet - 5 doses a month Prn tylenol Prior Therapy: 11/11/22 - left genicular nerve blocks S/p RFA cervical x 2 (C7-T1) Fusion C3-6 in 2016 Lower back sx L4-S1 (discectomy) 1982 Left knee pain (s/p sx x 2; meniscal repair x 2) H/o b/l ankle fx about 4 years ago Smokes 3/4 ppd FUNCTIONAL STATUS: independent ACTIVE PROBLEM LIST Colitis Hypertension Multiple Sclerosis (Hcc) Ulcerative Colitis (Hcc) Diabetes Mellitus ([facility]) Paroxysmal A-Fib ([facility]) Tobacco Dependence Dyslipidemia Atrial Fibrillation (Hcc) Anxiety and Depression Cardiomyopathy ([facility]) Lv (Left Ventricular) Mural Thrombus Obesity, Class I, Bmi 30-34.9 Chronic Fatigue Kyphosis Myofascial Pain Syndrome Chf (Congestive Heart Failure) (Hcc) Copd (Chronic Obstructive Pulmonary Disease) (Hcc) Gerd (Gastroesophageal Reflux Disease) Renal Insufficiency Intervertebral Thoracic Disc Disorder With Myelopathy, Thoracic Region Spinal Stenosis, Multiple Sites in Spine Wound Infection After Surgery PAST MEDICAL HISTORY Diagnosis Date Anxiety and depression Atrial fibrillation (HCC) Dr. Butler following- pt states blood clot in heart Cardiomyopathy ([facility]) Cervical myelopathy (HCC) CHF (congestive heart failure) ([facility]) Cognitive impairment on aricept Colitis COPD (chronic obstructive pulmonary disease) ([facility]) Diabetes (HCC) Dr. Flores following Dyslipidemia Full dentures GERD (gastroesophageal reflux disease) GI bleed 2020 History of loop recorder pt reports battery is [place] (hard of hearing) Hypertension controlled with meds IBS (irritable bowel syndrome) Multiple sclerosis ([facility]) Dr. Woods Myocardial infarct, old 03/2016 Obesity Pain management Pancreatitis [address] Greenfield RLS (restless legs syndrome) Sleep apnea no cpap since loosing 100lbs Tobacco dependence quit 12/26 Urinary incontinence Wears glasses PAST SURGICAL HISTORY Procedure Laterality Date BACK SURGERY HX lower x3 CARPAL TUNNEL lt and rt COLONOSCOPY FLX DX W/COLLJ SPEC WHEN PFRMD 10/12/2014 Colonoscopy inpt [facility] COLONOSCOPY FLX DX W/COLLJ SPEC WHEN PFRMD 02/28/2015 Colonoscopy EYE SURGERY HX Bilateral cataract FINGER SURGERY HX thumb reconstructed KNEE SURGERY HX lt x2 PAST SURGICAL HISTORY OF partial amputation of big toe PAST SURGICAL HISTORY OF Left 01/25/2015 great toe removal PAST SURGICAL HISTORY OF Bilateral 08/2022 C3 and C6 nerve ablasions PAST SURGICAL HISTORY OF calcium removed from breast TONSILLECTOMY HX TUBAL LIGATION HX Social History Tobacco Use Smoking status: Every Day Current packs/day: 0.00 Average packs/day: 1 pack/day for 51.0 years (51.0 ttl pk-yrs) Types: Cigarettes Start date: 01/04/1973 Last attempt to quit: 12/27/2023 Years since quittin.2 Smokeless tobacco: Never Tobacco comments: Less than 10 Vaping Use Vaping status: Never Used Substance Use Topics Alcohol use: Yes Comment: 1-2 times per year flavored beer Drug use: No FAMILY HISTORY Problem Relation Age of Onset Cancer Father lung Cancer Mother pancreatic Multiple Sclerosis No Family History ALLERGIES Allergen Reactions Aspirin Other: See Comments To high doses Indomethacin Other: See Comments Trazodone Intolerance Unable to wake up Vancomycin Shortness of Breath VANCO IV, during hospitalization Imitrex [Sumatripta* Vomiting BP went down Abilify [Aripiprazo* Other: See Comments Excessive drooling Clindamycin Intolerance Darvocet A500 [Prop* Intolerance Iodinated Contrast * Other: See Comments 30 yrs ago Iodine Intolerance rash Metformin GI Upset Stomach spasms Propoxyphene Other: See Comments CURRENT MEDICATIONS: mupirocin (BACTROBAN) 2 % ointment Apply to nostrils twice daily x 5 days once per month. tirzepatide (MOUNJARO) 7.5 mg/0.5 mL pen injector Inject 7.5 mg subcutaneously one time a week. ferrous sulfate 325 mg (65 mg iron) tablet Take 1 tablet by mouth once daily. modafinil (PROVIGIL) 200 mg tablet Take 1 tablet by mouth once daily for 180 days. isosorbide mononitrate ER (IMDUR) 30 mg 24 hr tablet Take 1 tablet by mouth two times a day. Cranberry 500 mg cap Take by mouth every morning. STOPPING FOR SURGERY 01/06/24 SURGERY 01/20/24 varenicline (CHANTIX) 0.5 mg tablet Take 0.5 mg by mouth daily with breakfast. lidocaine (LIDODERM) 5 % Apply 1-2 Patches as directed once daily. TO AFFECTED AREA. REMOVE AFTER 12 HOURS. tiZANidine (ZANAFLEX) 2 mg tablet 2 mg po qam and 2-4 mg qhs prn for pain control (Patient taking differently: Take by mouth once daily as needed. 2 mg po qam and 2-4 mg qhs prn for pain control) QUEtiapine (SEROQUEL) 25 mg tablet Take 25 mg by mouth daily at bedtime. fluorometholone (FML LIQUID FILM) 0.1 % ophthalmic suspension Instill 1 drop in both eyes twice a day (Patient taking differently: Use 1 Drop in both eyes two times a day. Instill 1 drop in both eyes twice a day) triamcinolone acetonide (KENALOG) 0.1 % cream Apply thin film on right thigh once or twice daily as needed. No longer than 2 weeks in a row. (Patient taking differently: two times a day as needed. Apply thin film on right thigh once or twice daily as needed. No longer than 2 weeks in a row. OF 01/04 RESOLVED) donepezil (ARICEPT) 10 mg tablet Take 2 tablets by mouth once daily. furosemide (LASIX) 20 mg tablet Take 1 tablet by mouth once daily. PRN LE Edema ramelteon (ROZEREM) 8 mg tablet Take 8 mg by mouth at bedtime as needed. losartan (COZAAR) 50 mg tablet 50 mg twice daily. carvedilol (COREG) 12.5 mg tablet Take 12.5 mg by mouth twice daily with meals. insulin lispro (HUMALOG KWIKPEN INSULIN) 100 unit/mL Use with meals based on PRE meal blood sugar SLIDING SCALE as needed #1 (1 for 50 over 150) ~20 units daily FARXIGA 10 mg tablet Take 1 tablet by mouth every morning. Insulin Scarbro, Disposable, (BD ULTRAFINE III MINI PEN) 31 gauge x 3/16 Uses 4 per day with insulin injection. flash glucose sensor (FREESTYLE JANAY 2 SENSOR) kit Change sensor every 14 days. USE FOR CONTINUOUS GLUCOSE MONITORING. MULTIPLE INSULIN INJECTIONS. E11.9 QUEtiapine (SEROQUEL) 100 mg tablet Take 100 mg by mouth daily at bedtime. ondansetron (ZOFRAN) 4 mg tablet Take 1 tablet by mouth every 8 hours as needed for nausea/vomiting. rOPINIRole (REQUIP) 1 mg tablet Take 2 mg by mouth daily at bedtime. acetaminophen (TYLENOL) 500 mg tablet Take 1,000 mg by mouth every 6 hours as needed for pain. apixaban (ELIQUIS) 5 mg tab(s) Take 5 mg by mouth two times a day. 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 vibegron (GEMTESA) 75 mg tablet Take 75 mg by mouth once daily. nitroglycerin sublingual (NITROQUICK) 0.4 mg SL tablet Dissolve 0.4 mg under the tongue every 5 minutes as needed. pioglitazone (ACTOS) 30 mg tablet Take 30 mg by mouth once daily. pantoprazole DR (PROTONIX) 40 mg tablet Take 40 mg by mouth once daily. DULoxetine (CYMBALTA) 30 mg capsule Take 30 mg by mouth twice daily. dicyclomine (BENTYL) 20 mg tablet Take 20 mg by mouth twice daily as needed. PROLIA 60 mg/mL once every 6 months. June and January per pt atorvastatin (LIPITOR) 40 mg tablet Take 40 mg by mouth once daily. ascorbic acid, vitamin C, (VITAMIN C) 500 mg tablet Take 1 tablet by mouth once daily. sucralfate (CARAFATE) 1 gram tablet Take 1 tablet by mouth four times daily. Cholecalciferol, Vitamin D3, 5,000 unit cap Take 1 capsule by mouth once daily. aspirin, enteric coated (ASPIRIN, ENTERIC COATED) 81 mg EC tablet Take 81 mg by mouth once daily. 01/11 LAST DOSE -7 DAYS PRIOR TO SURGERY PER DRY HOUSE TENDER FOR SURGERY 01/20/24 [DISCONTINUED] teriflunomide (AUBAGIO) 14 mg TAKE 1 TABLET BY MOUTH ONCE DAILY. rOPINIRole (REQUIP) 1 mg tablet Take 1 mg by mouth daily with lunch. (Patient not taking: Reported on 02/24/2024) REVIEW OF SYSTEMS: GENERAL: Denies fever, chills malaise and weight loss. HEENT: No recent change in vision or hearing. CARDIOVASCULAR: Denies chest pain, history of A-fib, valvular disease, or pacemaker/ICD. RESPIRATORY: Denies SOB, sputum production, and hemoptysis. GI: Denies GI ulcers, inflammatory disease, or liver disease. : Denies change in frequency or urgency, kidney disease, and burning with urination. MUSCULOSKELETAL: Negative for joint pain or swelling, back pain or muscle pain. SKIN: Denies rash or itching. PSYCHOLOGICAL: Denies uncontrolled depression or anxiety. NEURO:see hpi and below ENDOCRINE: see below HEMATOLOGY/LYMPHOLOGY: Denies cancer, bleeding or clotting disorders, anemia,and DVT's. ALLERGIC/IMMUNOLOGICAL: Denies risks for infection, or recent MRSA infections. OBJECTIVE: PHYSICAL EXAM BP 100/56 (BP Site: Left Arm, BP Position: Sitting, BP Cuff Size: Regular Adult) Pulse (!) 58 Resp 20 Ht 157.5 cm (5' 2) Wt 77.6 kg (171 lb) LMP 02/22/2000 (Approximate) SpO2 97% BMI 31.28 kg/m GENERAL APPEARANCE: age appropriate appearance, no apparent distress. NEURO PSYCH: Mood pleasant. Benign affect. SKIN: post surgical changes MUSCULOSKELETAL VISUAL INSPECTION CERVICAL: WNL THORACIC: very kyphotic LUMBAR: reduced lordosis SPINE ROM: LUMBAR ROM: reduced ROM With mild Pain Wall walking with impaired balance if not using Rollator Data Review: [facility] records independently reviewed ASSESSMENT/PLAN 68 yo woman with PMH anxiety, depression, afib on eliquis, CHrEF 2/2 CM, colitis, COPD, DM, HPL, h/o GIB, HTN, h/o [place], obesity, pancreatitis, RLS, MS, cognitive impairments, cervical myelopathy, h/o cervical fusion C3C6 x 1 and lumbar fusion x 3 with evident fusion at L4L5 (apparent graft) Had developed tenderness at L3L4 and on closer review of lumbar flex ext views may have some degree of instability anterior disk , and had notable kyphosis with sig ddd in T spine but no notable compression fxs. The cervical spine issues more likely myofascial and scar sensitivity. MRI L spine completed with severe canal stenosis at L3L4 and foraminal stenosis at L4L5 and L5S1 but also with localizer views showing likely severe canal stenosis at T10/T11 and possible myelomalacia. There is evidence of compression fx at T11 MRI T spine later completed showing T spine degenerative changes, worst at T10-T11 with severe canal stenosis and focal cord compression. S/p T10-T11 lami and L3-L4 lami 01/20/24 with later needs for I & D on 02/19/24 d/t wound dehis and signs of infection with Dr. Mackenzie/TIGIST She is continuing to work with [facility] PT at this point and should continue to keep working on strength, core and balance. D/w her umbilicus to back core strengthening exercise and balance exercises that can work on while standing at counter Given spasticity, on zanaflex 2mg qm and 2-4 mg pm- refilled with #90 with refill for 6 months total Lidocaine 5% TD 1-2 patches daily prn- can use near scar as long as skin not open F/u 3 months Sudden neuro decline - to ER Patient understands above plan; questions asked and answered. Medication options, including side effects, were discussed in detail. Education was given regarding signs and symptoms that would indicate a serious change in condition, and they were instructed to seek care immediately should these arise. Patient agrees to plan as noted above. These notes are used for the purpose of medical documentation and that for use for other medical providers. Jargon expressed here is intentioned for use under this context. Meka Webb MD. I spent a total of 30 minutes on the date of the service which included preparing to see the patient, [id number] patient care, completing clinical documentation, performing a medically appropriate examination, counseling and educating the patient/family/caregiver, and ordering medications, tests, or procedures. documented in this encounter [facility] 03-29-2024 Nurse Note Images from the original note were not included. Patient presents with chief complaints of mid back pain Any new or significant change in pain? stated she had surgery Worst level of pain, 1-10, with 1 being mild discomfort is 8 PAIN INCREASED BY: OTHER moving the wrong way PAIN DECREASED BY: OTHER THERAPEUTIC INTERVENTIONS: PHYSICAL THERAPY LAND and MEDICATION The following tests/records were reviewed: testing at [facility]. Do you need any refills today from the doctor?no Courtney Schultz RN [facility] 03-29-2024 Nurse Note Images from the original note were not included. Patient presents with chief complaints of mid back pain Any new or significant change in pain? stated she had surgery Worst level of pain, 1-10, with 1 being mild discomfort is 8 PAIN INCREASED BY: OTHER moving the wrong way PAIN DECREASED BY: OTHER THERAPEUTIC INTERVENTIONS: PHYSICAL THERAPY LAND and MEDICATION The following tests/records were reviewed: testing at [facility]. Do you need any refills today from the doctor?no Courtney Schultz RN documented in this encounter [facility] 03-28-2024 Telephone encounter Note Patient is requesting a refill on Oxycodone. [facility] 03-28-2024 Miscellaneous Notes Patient is requesting a refill on Oxycodone. documented in this encounter [facility] 03-21-2024 Telephone encounter Note Patient is requesting a refill on Oxycodone. Jazlyn Bermudez LPN [facility] 03-21-2024 Miscellaneous Notes Patient is requesting a refill on Oxycodone. Jazlyn Bermudez LPN documented in this encounter [facility] 03-11-2024 Telephone encounter Note Updated clinical chart notes from most recent visit with Rosa Flores CNP on 02/24/2024 faxed to [facility] for existing DME Rx. Fax confirmation received. Tenisha Messer RN March 11, 2024 2:06 PM [facility] 03-11-2024 Miscellaneous Notes Updated clinical chart notes from most recent visit with Rosa Flores CNP on 02/24/2024 faxed to [facility] for existing DME Rx. Fax confirmation received. Tenisha Messer RN March 11, 2024 2:06 PM documented in this encounter [facility] 03-08-2024 Note [facility] 03-08-2024 History of Present illness Narrative Images from the original note were not included. [facility] Established Patient Consultation No referring provider defined for this encounter. CC: S/p T10-T11 Laminectomy followed by L3-4 Laminectomy Subjective History of Present Illness: Mrs. Gray is a pleasant 68yo lady who was referred to us by Dr. Duarte due to concerns of thoracic myelopathy. She has a PMH significant for MS and smoking and DMII. She has a history of chronic lower back pain and more recently started noticing worsening balance and some weakness and heaviness in her legs when walking longer distances. She is ambulatory at baseline with a walker. Hx of C4-6 lami fusion and hx of L4-5 and L5-1 decompression in 2016. Denies upper extremity symptoms. On Eliquis, prior hx of [place]. Smokes half a pack a day of cigarettes. Patient does not work and is independent at home. Update 02/11/2024: Mrs. Gray returns today for a postop follow up. She refers that her lower extremities fell stronger and that her pain has improved. She is having PT daily at the nurse facility she is in. Denies other symptoms. Updates 02/18/2024: She is s/p T10-T11 and L3-L4 laminectomy 01/20/24 and presented our clinic today with wound dehiscence and signs of infection. She will be admitted for I&D tomorrow. Updates 03/08/2024: She returns today for a postop follow up. Denies any symptoms. Past Medical History: PAST MEDICAL HISTORY Diagnosis Date Anxiety and depression Atrial fibrillation (HCC) Dr. Butler following- pt states blood clot in heart Cardiomyopathy (HCC) Cervical myelopathy (HCC) CHF (congestive heart failure) ([facility]) Cognitive impairment on aricept Colitis COPD (chronic obstructive pulmonary disease) (HCC) Diabetes ([facility]) Dr. Flores following Dyslipidemia Full dentures GERD (gastroesophageal reflux disease) GI bleed 2020 History of loop recorder pt reports battery is PECHANGA (hard of hearing) Hypertension controlled with meds IBS (irritable bowel syndrome) Multiple sclerosis ([facility]) Dr. Woods Myocardial infarct, old 03/2016 Obesity Pain management Pancreatitis [address] Greenfield RLS (restless legs syndrome) Sleep apnea no cpap since loosing 100lbs Tobacco dependence quit 12/26 Urinary incontinence Wears glasses Past Surgical History: PAST SURGICAL HISTORY Procedure Laterality Date BACK SURGERY HX lower x3 CARPAL TUNNEL lt and rt COLONOSCOPY FLX DX W/COLLJ SPEC WHEN PFRMD 10/12/2014 Colonoscopy inpt [facility] COLONOSCOPY FLX DX W/COLLJ SPEC WHEN PFRMD 02/28/2015 Colonoscopy EYE SURGERY HX Bilateral cataract FINGER SURGERY HX thumb reconstructed KNEE SURGERY HX lt x2 PAST SURGICAL HISTORY OF partial amputation of big toe PAST SURGICAL HISTORY OF Left 01/25/2015 great toe removal PAST SURGICAL HISTORY OF Bilateral 08/2022 C3 and C6 nerve ablasions PAST SURGICAL HISTORY OF calcium removed from breast TONSILLECTOMY HX TUBAL LIGATION HX Family History: FAMILY HISTORY Problem Relation Age of Onset Cancer Father lung Cancer Mother pancreatic Multiple Sclerosis No Family History Social History Tobacco Use Smoking status: Every Day Current packs/day: 0.00 Average packs/day: 1 pack/day for 51.0 years (51.0 ttl pk-yrs) Types: Cigarettes Start date: 01/04/1973 Last attempt to quit: 12/27/2023 Years since quittin.1 Smokeless tobacco: Never Tobacco comments: Less than 10 Vaping Use Vaping status: Never Used Substance Use Topics Alcohol use: Yes Comment: 1-2 times per year flavored beer Drug use: No Allergies: Aspirin, Indomethacin, Trazodone, Vancomycin, Imitrex [Sumatriptan], Abilify [Aripiprazole], Clindamycin, Darvocet A500 [Propoxyphene N-Acetaminophen], Iodinated Contrast Media, Iodine, Metformin, and Propoxyphene Current Outpatient Medications Medication Sig oxyCODONE IR (ROXICODONE) 5 mg immediate release tablet Take 1 tablet by mouth every 6 hours as needed for pain for up to 7 days. mupirocin (BACTROBAN) 2 % ointment Apply to nostrils twice daily x 5 days once per month. tirzepatide (MOUNJARO) 7.5 mg/0.5 mL pen injector Inject 7.5 mg subcutaneously one time a week. ferrous sulfate 325 mg (65 mg iron) tablet Take 1 tablet by mouth once daily. hydrOXYzine HCl (ATARAX) 50 mg tablet Take 1 tablet by mouth two times a day. modafinil (PROVIGIL) 200 mg tablet Take 1 tablet by mouth once daily for 180 days. Cranberry 500 mg cap Take by mouth every morning. STOPPING FOR SURGERY 01/06/24 SURGERY 01/20/24 varenicline (CHANTIX) 0.5 mg tablet Take 0.5 mg by mouth daily with breakfast. lidocaine (LIDODERM) 5 % Apply 1-2 Patches as directed once daily. TO AFFECTED AREA. REMOVE AFTER 12 HOURS. tiZANidine (ZANAFLEX) 2 mg tablet 2 mg po qam and 2-4 mg qhs prn for pain control (Patient taking differently: Take by mouth once daily as needed. 2 mg po qam and 2-4 mg qhs prn for pain control) QUEtiapine (SEROQUEL) 25 mg tablet Take 25 mg by mouth daily at bedtime. fluorometholone (FML LIQUID FILM) 0.1 % ophthalmic suspension Instill 1 drop in both eyes twice a day (Patient taking differently: Use 1 Drop in both eyes two times a day. Instill 1 drop in both eyes twice a day) triamcinolone acetonide (KENALOG) 0.1 % cream Apply thin film on right thigh once or twice daily as needed. No longer than 2 weeks in a row. (Patient taking differently: two times a day as needed. Apply thin film on right thigh once or twice daily as needed. No longer than 2 weeks in a row. OF 01/04 RESOLVED) donepezil (ARICEPT) 10 mg tablet Take 2 tablets by mouth once daily. furosemide (LASIX) 20 mg tablet Take 1 tablet by mouth once daily. PRN LE Edema ramelteon (ROZEREM) 8 mg tablet Take 8 mg by mouth at bedtime as needed. losartan (COZAAR) 50 mg tablet 50 mg twice daily. carvedilol (COREG) 12.5 mg tablet Take 12.5 mg by mouth twice daily with meals. insulin lispro (HUMALOG KWIKPEN INSULIN) 100 unit/mL Use with meals based on PRE meal blood sugar SLIDING SCALE as needed #1 (1 for 50 over 150) ~20 units daily FARXIGA 10 mg tablet Take 1 tablet by mouth every morning. Insulin Scarbro, Disposable, (BD ULTRAFINE III MINI PEN) 31 gauge x 3/16 Uses 4 per day with insulin injection. flash glucose sensor (FREESTYLE JANAY 2 SENSOR) kit Change sensor every 14 days. USE FOR CONTINUOUS GLUCOSE MONITORING. MULTIPLE INSULIN INJECTIONS. E11.9 QUEtiapine (SEROQUEL) 100 mg tablet Take 100 mg by mouth daily at bedtime. ondansetron (ZOFRAN) 4 mg tablet Take 1 tablet by mouth every 8 hours as needed for nausea/vomiting. rOPINIRole (REQUIP) 1 mg tablet Take 2 mg by mouth daily at bedtime. acetaminophen (TYLENOL) 500 mg tablet Take 1,000 mg by mouth every 6 hours as needed for pain. apixaban (ELIQUIS) 5 mg tab(s) Take 5 mg by mouth two times a day. 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 vibegron (GEMTESA) 75 mg tablet Take 75 mg by mouth once daily. nitroglycerin sublingual (NITROQUICK) 0.4 mg SL tablet Dissolve 0.4 mg under the tongue every 5 minutes as needed. pioglitazone (ACTOS) 30 mg tablet Take 30 mg by mouth once daily. pantoprazole DR (PROTONIX) 40 mg tablet Take 40 mg by mouth once daily. DULoxetine (CYMBALTA) 30 mg capsule Take 30 mg by mouth twice daily. dicyclomine (BENTYL) 20 mg tablet Take 20 mg by mouth twice daily as needed. PROLIA 60 mg/mL once every 6 months. June and January per pt atorvastatin (LIPITOR) 40 mg tablet Take 40 mg by mouth once daily. ascorbic acid, vitamin C, (VITAMIN C) 500 mg tablet Take 1 tablet by mouth once daily. sucralfate (CARAFATE) 1 gram tablet Take 1 tablet by mouth four times daily. Cholecalciferol, Vitamin D3, 5,000 unit cap Take 1 capsule by mouth once daily. aspirin, enteric coated (ASPIRIN, ENTERIC COATED) 81 mg EC tablet Take 81 mg by mouth once daily. 01/11 LAST DOSE -7 DAYS PRIOR TO SURGERY PER DRY HOUSE TENDER FOR SURGERY 01/20/24 isosorbide mononitrate ER (IMDUR) 30 mg 24 hr tablet Take 1 tablet by mouth two times a day. rOPINIRole (REQUIP) 1 mg tablet Take 1 mg by mouth daily with lunch. (Patient not taking: Reported on 02/24/2024) No current facility-administered medications for this visit. Employed: No Review of systems: Constitutional: No recent fever or weight loss. Eyes: No history of glaucoma or cataracts. ENMT: No recent ear infection, nasal congestion, mouth sores or sore throat. CV: No history of chest pain, palpitations or leg swelling. Respiratory: No history of SOB, asthma or recent cough. Gastrointestinal: No history of nausea, vomiting, dysphagia or abdominal pain. Genitourinary: No history of hematuria or dysuria. Musculoskeletal: No complaint of arthritis, unstable gait or arm/leg weakness. Psychiatric: No history of hallucinations or depression or anxiety. ROS Neurological: No complaint of headache. No complaint of tinnitus. No complaint of decreased hearing. No complaint of diplopia. No complaints of decreased visual acuity. No complaint of arm/leg numbness. No problem with limb coordination. No complaint of syncope, seizures or disorientation. Objective Physical Exam: BP 125/59 (BP Site: Left Arm, BP Position: Sitting, BP Cuff Size: Regular Adult) Pulse 70 Ht 157.5 cm (5' 2) Wt 77.6 kg (171 lb) LMP 02/22/2000 (Approximate) SpO2 97% BMI 31.28 kg/m Neurological: Higher integrative functions: Oriented to person, place & time. Memory: Good recent and remote. Attention Span and Concentration: Good. Language: Accurate naming of objects. Good comprehension. Fund of Knowledge: Good. 2nd CN: Full visual jeffery. 3rd,4th,6th CN: Pupils (=), round, react to light, full extraocular movements. 5th CN: No decrease in facial sensation. 7th CN: Facial muscles symmetric and strong. 8th CN: Hears finger rub well bilaterally. 9th CN: Good gag. 10th CN: Spontaneous palate movement, full and symmetric. 11th CN: Full strength in shoulder shrug. 12th CN: Tongue protrusion full and midline. Sensation: No decrease in sensation in upper or lower limbs to touch. Musculoskeletal: unsteady gait. Motor all limbs grade 3/5 in lower extremities. Myotatic reflexes: 4/4 on lower extremities. Babinski+, Clonus + Babinski reflexes: Absent. Coordination: Rapid alternating movements fast and smooth all limbs. SLR negative bilateral Paraspinal tenderness on a palpation of lower lumbar spine Incision: C/D/I Labs: Latest Ref Rng & Units 02/20/2024 02/21/2024 02/22/2024 CBC WBC 3.70 - 11.00 k/uL 6.60 6.65 5.71 RBC 3.90 - 5.20 m/uL 3.37 3.43 3.51 Hemoglobin 11.5 - 15.5 g/dL 10.4 10.4 10.9 Hematocrit 36.0 - 46.0 % 32.5 33.2 33.0 MCV 80.0 - 100.0 fL 96.4 96.8 94.0 MCH 26.0 - 34.0 pg 30.9 30.3 31.1 MCHC 30.5 - 36.0 g/dL 32.0 31.3 33.0 RDW-CV 11.5 - 15.0 % 13.2 13.2 13.2 Platelet Count 150 - 400 k/uL 251 271 263 MPV 9.0 - 12.7 fL 9.7 9.7 9.4 Latest Ref Rng & Units 02/20/2024 02/21/2024 02/22/2024 CMP Sodium 136 - 145 mmol/L 137 139 139 Potassium 3.5 - 5.1 mmol/L 3.9 4.1 4.0 Chloride 98 - 107 mmol/L 108 108 108 CO2 21 - 32 mmol/L 23 26 25 Glucose 70 - 100 mg/dL 174 101 250 BUN 7 - 26 mg/dL 19 13 10 Creatinine 0.51 - 0.95 mg/dL 0.64 0.54 0.48 EGFR >=60 mL/min/1.73m 96 100 103 Protein, Total 6.0 - 8.5 g/dL 5.4 Albumin 3.2 - 5.0 g/dL 2.5 Calcium 8.5 - 10.5 mg/dL 8.5 9.1 9.6 Bilirubin, Total 0.2 - 1.0 mg/dL 0.2 AST 8 - 34 U/L 21 ALT 13 - 61 U/L 9 Alkaline Phosphatase 45 - 117 U/L 116 Imaging: Lumbar and thoracic Xrs showed no signs of instability or deformities. Data Review: Personal review of medical records: I reviewed the [facility] chart. Personal review of image, tracing or specimen: Chloe Mackenzie MD Assessment & Plan 68 year old female who presents with a surgical wound infection. She is s/p T10-T11 and L3-L4 laminectomy 01/20/24 and presented our clinic with wound dehiscence and signs of infection, underwent I&D. Incision today is C/D/I. I will see her in 6 months. Recommendations: As above Medicines: No Change Instructions: Continue present activity Physician [id number] time was 10 minutes with > 50% devoted to counseling or co-ordination of care. Approximately 10 minutes were spent reviewing medical records. No resident was available to participate in this visit. I saw and evaluated the patient. Medical Decision Making: Problems: Moderate: 2+ stable chronic illnesses Data: Unique source(s) for external note(s) reviewed: 2 Unique test result(s) reviewed: 2 Medical Decision Making Level: 4 - Moderate Chloe Mackenzie MD [facility] March 08, 2024 11:11 AM documented in this encounter [facility] 03-08-2024 Nurse Note Patient is here today for a post-op appointment for her lowerback [facility] 03-08-2024 Nurse Note Patient is here today for a post-op appointment for her lowerback documented in this encounter [facility] 03-04-2024 History of Present illness Narrative Images from the original note were not included. [facility] MULTIPLE SCLEROSIS FOLLOWUP/ESTABLISHED PATIENT VIRTUAL VISIT PRINCIPAL NEUROLOGIC DIAGNOSIS: Multiple sclerosis DISEASE SUMMARY Date of onset: 12/1998 Date of diagnosis of MS: 1998 Disease course at onset: Progressive with relapses Current disease course: Progressive with relapses Previous disease therapies: Glatiramer acetate 2002, [id number], [id number] Fingolimod 07/2014-04/2016 (switched because of heart issues - had heart attack) Teriflunomide 7 mg 04/2016-10/2016 Prednisone x 10 days 03/2017 IVMP 01/25/17 x 1 dose Teriflunomide 14 mg daily Kesimpta (started 01/2022- stopped due to concerns of facial nodules/excoriation Current disease therapy: Most recent MRI brain: 07/27/23 Most recent MRI cervical spine: 08/22/22 Most recent MRI thoracic spine: 08/22/22 CSF: 1998 JCV serology result and date: NA CHIEF COMPLAINT: Follow-up on MS disease modifying therapy INTERVAL HISTORY: Usual treating team: Pako/Carlos I have communicated my name and active licensure. The patient's identity and physical location were verified at the time of this visit. Either the patient or their legal airport representative has been informed of the risks and benefits of -- and alternatives to -- treatment through a remote evaluation and consents to proceed with the evaluation remotely. . Today's visit is being completed virtually- switched to phone, unable to connect virtually or through doximity; pt consented. Accompanied by self. Last seen 12/24/23. Currently not on DMT. She underwent Elective T10-T11 laminectomy and L3-L4 laminectomy 01/20/24. Went to [facility] after surgery for rehab and noticed wound was leaky and reports she told rehab but was discharged and recommended to see surgeon as outpatient - complications with post-op infection requiring surgical wound washout 02/19/24 (admitted right from OV 02/17) - wound nurse comes three times per week - has homecare PT that comes twice per week. Slow improvements. Back to walking with rollator - finally has a homehealth aid (has been waiting 2 years) 3x per week Feels shaky since the surgery. Glucose around 140. Saw endo last week. A1C 6.7 Allergic reaction to Vancomycin after treated for MRSA infection in nose Reports Skin status quo - saw dermatology 02/25 Plans to go back to [facility] after Thanksgiving REVIEW OF SYSTEMS: Mood: PHQ9 responses reviewed and appear below Pain:reviewed on nursing intake documentation Neuro-QoL Functions (higher=better functioning) Flowsheet Row [facility] from 12/24/2023 in [facility] Office Visit from 11/10/2023 in [facility] Office Visit from 09/24/2023 in [facility] Upper Extremity Domain T Score 34 38 38 Lower Extremity Domain T Score 37 37 35 Cognitive Function Domain T Score 35 35 32 Positive Affect Well Being T Score -- -- -- Ability To Participate In Social Roles T Score 42 42 44 Satisfaction With Social Roles T Score 43 42 42 Neuro-QoL Symptoms (higher=worse symptoms) Flowsheet Row [facility] from 12/24/2023 in [facility] Office Visit from 11/10/2023 in [facility] Office Visit from 09/24/2023 in [facility] Sleep Domain T Score 68 69 71 Fatigue Domain T Score 58 56 60 Anxiety Domain T Score 56 52 52 Depression Domain T Score 54 51 52 Stigma Domain T Score 63 63 60 Emotional Behavior Dyscontrol T Score -- -- -- PAST HISTORY was reviewed and updated: PAST MEDICAL HISTORY Diagnosis Date Anxiety and depression Atrial fibrillation (HCC) Dr. Butler following- pt states blood clot in heart Cardiomyopathy (HCC) Cervical myelopathy (HCC) CHF (congestive heart failure) (HCC) Cognitive impairment on aricept Colitis COPD (chronic obstructive pulmonary disease) (HCC) Diabetes ([facility]) Dr. Flores following Dyslipidemia Full dentures GERD (gastroesophageal reflux disease) GI bleed 2020 History of loop recorder pt reports battery is PECHANGA (hard of hearing) Hypertension controlled with meds IBS (irritable bowel syndrome) Multiple sclerosis ([facility]) Dr. Woods Myocardial infarct, old 03/2016 Obesity Pain management Pancreatitis [address] Greenfield RLS (restless legs syndrome) Sleep apnea no cpap since loosing 100lbs Tobacco dependence quit 12/26 Urinary incontinence Wears glasses PAST SURGICAL HISTORY Procedure Laterality Date BACK SURGERY HX lower x3 CARPAL TUNNEL lt and rt COLONOSCOPY FLX DX W/COLLJ SPEC WHEN PFRMD 10/12/2014 Colonoscopy inpt [facility] COLONOSCOPY FLX DX W/COLLJ SPEC WHEN PFRMD 02/28/2015 Colonoscopy EYE SURGERY HX Bilateral cataract FINGER SURGERY HX thumb reconstructed KNEE SURGERY HX lt x2 PAST SURGICAL HISTORY OF partial amputation of big toe PAST SURGICAL HISTORY OF Left 01/25/2015 great toe removal PAST SURGICAL HISTORY OF Bilateral 08/2022 C3 and C6 nerve ablasions PAST SURGICAL HISTORY OF calcium removed from breast TONSILLECTOMY HX TUBAL LIGATION HX MEDICATIONS and ALLERGIES were reviewed and updated. SOCIAL HISTORY was reviewed and updated: Current living situation: At home Current vocational status: On disabiltiy EXAM: Mental status evaluation during the interview and examination showed normal level of consciousness, orientation, language, memory, praxis, and higher intellectual function Affect: Normal Speech: normal RESULTS: Monitoring labs: CBC + Diff Component Value Date WBC 5.71 02/22/2024 HB 10.9 (L) 02/22/2024 HCT 33.0 (L) 02/22/2024 PLT 263 02/22/2024 ABSLYMPH 1.40 09/24/2023 CMP Component Value Date AST 21 02/20/2024 GLUC 250 (H) 02/22/2024 BUN 10 02/22/2024 CREAT 0.48 (L) 02/22/2024 NA 139 02/22/2024 K 4.0 02/22/2024 CHLOR 108 (H) 02/22/2024 ALT 9 (L) 02/20/2024 MRI brain: No new brain MRI to review ASSESSMENT: Elo Gray is a 68 year old female with multiple sclerosis. Patient is not currently on DMT - Kesimpta held with last dose June 2023. Recommend updated brain and c-spine MRI between March-May 2024. Disease activity in MS is often not immediately detectable on history or examination, but is sensitively identified on MRI. If identified, new or active MS lesions on MRI may represent suboptimal response to MS therapy, and would change medical management. She recently underwent T10-T11 laminectomy and L3-L4 laminectomy 01/20/24 and develop wound infection required washout 02/19/24. She has a wound nurse monitoring 3x per week, PT coming to the house twice per week, and a home health aid 3x per week. She continues to follow with specialists as directed. PLAN: 1. Continue to monitor off DMT at present 2. Brain and c-spine MRI in 1-3 months if tolerated 3. Continue PT as directed 4. Specialists as directed 5. Follow-up after MRI or sooner if needed I spent a total of 20 minutes on the date of the service which included preparing to see the patient, completing clinical documentation, obtaining and/or reviewing separately obtained history, counseling and educating the patient/family/caregiver, ordering medications, tests, or procedures, and communicating results to the patient/family/caregiver. Bill Woods PA-C documented in this encounter [facility] 03-04-2024 Note [facility] 03-04-2024 Telephone encounter Note LVM reminding her of the appointment with Dr. Mackenzie. Also advised to complete xrays prior to the appointment. If she is unable to complete the xrays she will need to reschedule. Provided call back number. [facility] 03-04-2024 Miscellaneous Notes LVM reminding her of the appointment with Dr. Mackenzie. Also advised to complete xrays prior to the appointment. If she is unable to complete the xrays she will need to reschedule. Provided call back number. documented in this encounter [facility] 02-26-2024 History of Present illness Narrative HPI: Patient returns for f/u of Prurigo nodularis. Patient reports improvement but it keeps coming and going. Patient reports MRSA x 2 times January 19, February 18. Currently using mupirocin (BACTROBAN) 2 % ointment, triamcinolone acetonide (KENALOG) 0.1 % cream EXAM: Alert & oriented in no acute distress. Mid Chin, Right Malar Cheek Few scattered excoriated papules. Left Nasal Vestibule, Right Nasal Vestibule Per patient; had +MRSA in nostrils. IMPRESSION/PLAN: Prurigo nodularis Right Malar Cheek; Mid Chin Controlled currently. Continue to monitor areas. Advised hydrocolloid patches to minimize picking. Patient in agreement. MRSA (methicillin resistant Staphylococcus aureus) carrier (2) Left Nasal Vestibule; Right Nasal Vestibule Begin preventive treatment. See orders. Begin after finishing Bactrim. Related Medications mupirocin (BACTROBAN) 2 % ointment Apply to nostrils twice daily x 5 days once per month. F/u visit: 6 months. The documentation for this note was completed by Elo German LPN acting as scribe for Vaishnavi Soria MD. February 26, 2024 9:53 AM. The HPI, PMH, EXAM, Findings/plan that were documented by my power plant assistant, who was scribing during the encounter, were confirmed by me and I agree with the content of these sections. I have made any required additions or deletions to the HPI/PFSH/exam/findings/plan as needed. The physical exam and any procedures were performed by me, unless otherwise noted. Vaishnavi Soria MD Medical Decision Making: Problems: Low: 2+ self-limited or minor problems Risk: Low: Low risk from testing/treatment Medical Decision Making Level: 3 - Low documented in this encounter [facility] 02-26-2024 Note [facility] 02-24-2024 Note HNO ID: [id number] Author: AMY CAMPBELL MA Service: ? Author Type: Tube Turner Type: Progress Notes Filed: 02/24/2024 09:38 Note Text: [facility] 02-24-2024 History of Present illness Narrative Images from the original note were not included. Images from the original note were not included. OFFICE VISIT PROGRESS NOTE CC Elo Gray is a 68 year old who presents today for blood sugar review, DM med dose review, adjust. HPI Diagnosed with diabetes mellitus type II, ~ 2000 Last endocrine OV 08/19/2023 Some elements copied from my note 08/19/2023 which have been updated where appropriate, and all reflect current medical decision making from date of this visit. 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, pt is using her phone only for CGM HPI 02/24/2024 Is on antibiotics for infected back surgical incision Sugars have been higher Has been using her SS for elevated blood sugars Bactrim BID dosing at this time, one week, will finish by next Thursday Had been using anywhere from 2-4 units Having wound care visit this morning CURRENT DM MEDS Humalog SS IF NEEDED - uses approx 1 time daily - uses very minimally MOUNJARO 5 mg weekly injection FARXIGA 10 mg 1 tab daily ACTOS 30 mg 1 tab daily SMBG Type of Monitor: Other FREESTYLE JANAY CGM 2 Frequency of Monitoring Values over past week: Highest ; Lowest Hypoglycemia: no Diet: none specific Exercise: PT 2 times per week DM REVIEW OF SYSTEMS Last Eye Exam : orbital MRI, at last eye exam, hx of optic neuritis, nothing new. December 2022 Last Podiatry Exam: sees podiatry, great toe L foot amputation (infected blister) sees for nails Cardiorespiratory: negative, denies chest pain, pressure Claudication: no Dyslipidemia: Yes, controlled on medication High Blood Pressure: Yes, controlled on medication CURRENT LABS Latest Ref Rng 01/05/2024 Hemoglobin A1C 4.3 - 5.6 % 6.8 (H) Estimated Average Glucose mg/dL 148 HEMOGLOBIN A1C Component Ref Range & Units 01/05/2024 3 mo ago 7 mo ago 1 yr ago 2 yr ago Hemoglobin A1C 4.3 - 5.6 % 6.8 High 7.2 High CM Recent Labs 07/08/16 13810/28/2172901/14/23 1106 06/24/23 1035 07/27/23 0932 09/24/23 1007 11/10/23 0845 01/05/24 0832 01/20/24 1954 01/22/24 0441 ALT -- < > 9 < > 10 12 14 -- -- 8* AST -- < > 12* < > 11* 16 14 -- -- 15 TSH 1.393 -- -- -- -- -- -- -- -- -- TPROT -- < > 5.8* < > 6.6 6.3 6.1* -- -- 5.6* ALB -- < > 3.9 < > 4.0 4.2 3.7* -- -- 2.8* CA -- < > 10.1 < > 10.1 10.5* 9.7 10.4 -- 10.1 TBILI -- < > 0.3 < > 0.5 0.4 0.3 -- -- 0.5 ALKPHOS -- < > 78 < > 115 92 89 -- -- 91 GLUC -- < > 171* < > 202* 170* 142* 197* -- 300* BUN -- < > 19 < > 17 20 31* 21 -- 35* CREAT -- < > 0.63 < > 0.60 0.61 0.79 0.72 0.68 0.97* NA -- < > 137 < > 135* 136 136 138 -- 133* K -- < > 4.5 < > 3.7 4.7 4.7 3.8 -- 4.5 CHLOR -- < > 103 < > 102 103 104 107 -- 101 CO2 -- < > 25 < > 24 21* 23 27 -- 25 ANION -- < > 9 < > 9 12 9 4* -- 7 EGFROTH -- < > 97 < > 98 98 82 91 94 63 HBA1C -- < > 7.1* -- 6.7* -- 7.2* 6.8* -- -- B12 -- -- 324 -- -- >2,000* 1,047 -- -- -- < > = values in this interval not displayed. Recent Labs 10/28/2113808/06/22 1059 01/14/23 1106 07/27/23 0932 09/24/23 1007 11/10/23 0845 01/05/24 0832 TG 112 -- 78 62 -- 81 -- CHOL 159 -- 109 131 -- 123 -- HDL 69 -- 71 82 -- 74 -- VLDL 22 -- 16 12 -- 16 -- LDL 68 -- 22 37 -- 33 -- FASTTIME 6 -- -- -- -- -- -- TCHDL 2.30 -- 1.54 1.60 -- 1.66 -- LDLHDL 0.99 -- 0.31 0.45 -- 0.45 -- NONHDL 90 -- 38 49 -- 49 -- HBA1C -- < > 7.1* 6.7* -- 7.2* 6.8* HBA0 -- -- 157 146 -- 160 148 B12 -- -- 324 -- >2,000* 1,047 -- < > = values in this interval not displayed. PAST MEDICAL HISTORY Diagnosis Date Anxiety and depression Atrial fibrillation (HCC) Dr. Butler following- pt states blood clot in heart Cardiomyopathy (HCC) Cervical myelopathy (HCC) CHF (congestive heart failure) (HCC) Cognitive impairment on aricept Colitis COPD (chronic obstructive pulmonary disease) (HCC) Diabetes (HCC) Dr. Flores following Dyslipidemia Full dentures GERD (gastroesophageal reflux disease) GI bleed 2020 History of loop recorder pt reports battery is PECHANGA (hard of hearing) Hypertension controlled with meds IBS (irritable bowel syndrome) Multiple sclerosis ([facility]) Dr. Woods Myocardial infarct, old 03/2016 Obesity Pain management Pancreatitis [address] Greenfield RLS (restless legs syndrome) Sleep apnea no cpap since loosing 100lbs Tobacco dependence quit 12/26 Urinary incontinence Wears glasses PAST SURGICAL HISTORY Procedure Laterality Date BACK SURGERY HX lower x3 CARPAL TUNNEL lt and rt COLONOSCOPY FLX DX W/COLLJ SPEC WHEN PFRMD 10/12/2014 Colonoscopy inpt [facility] COLONOSCOPY FLX DX W/COLLJ SPEC WHEN PFRMD 02/28/2015 Colonoscopy EYE SURGERY HX Bilateral cataract FINGER SURGERY HX thumb reconstructed KNEE SURGERY HX lt x2 PAST SURGICAL HISTORY OF partial amputation of big toe PAST SURGICAL HISTORY OF Left 01/25/2015 great toe removal PAST SURGICAL HISTORY OF Bilateral 08/2022 C3 and C6 nerve ablasions PAST SURGICAL HISTORY OF calcium removed from breast TONSILLECTOMY HX TUBAL LIGATION HX FAMILY HISTORY Problem Relation Age of Onset Cancer Father lung Cancer Mother pancreatic Multiple Sclerosis No Family History Social History Tobacco Use Smoking status: Former Current packs/day: 0.00 Average packs/day: 1 pack/day for 51.0 years (51.0 ttl pk-yrs) Types: Cigarettes Start date: 01/04/1973 Quit date: 12/27/2023 Years since quittin.1 Smokeless tobacco: Never Tobacco comments: Less than 10 Vaping Use Vaping status: Never Used Substance Use Topics Alcohol use: Yes Comment: 1-2 times per year flavored beer Drug use: No Current Outpatient Medications Medication Sig hydrOXYzine HCl (ATARAX) 50 mg tablet Take 1 tablet by mouth two times a day. isosorbide mononitrate ER (IMDUR) 30 mg 24 hr tablet Take 1 tablet by mouth two times a day. ferrous sulfate 325 mg (65 mg iron) tablet Take 1 tablet by mouth once daily. Cranberry 500 mg cap Take by mouth every morning. STOPPING FOR SURGERY 01/06/24 SURGERY 01/20/24 varenicline (CHANTIX) 0.5 mg tablet Take 0.5 mg by mouth daily with breakfast. varenicline (CHANTIX) 1 mg tablet Take 1 mg by mouth daily at bedtime. lidocaine (LIDODERM) 5 % Apply 1-2 Patches as directed once daily. TO AFFECTED AREA. REMOVE AFTER 12 HOURS. tiZANidine (ZANAFLEX) 2 mg tablet 2 mg po qam and 2-4 mg qhs prn for pain control QUEtiapine (SEROQUEL) 25 mg tablet Take 25 mg by mouth once daily. fluorometholone (FML LIQUID FILM) 0.1 % ophthalmic suspension Instill 1 drop in both eyes twice a day (Patient taking differently: Use 1 Drop in both eyes two times a day. Instill 1 drop in both eyes twice a day) triamcinolone acetonide (KENALOG) 0.1 % cream Apply thin film on right thigh once or twice daily as needed. No longer than 2 weeks in a row. (Patient taking differently: two times a day as needed. Apply thin film on right thigh once or twice daily as needed. No longer than 2 weeks in a row. OF 01/04 RESOLVED) MOUNJARO 5 mg/0.5 mL pen injector INJECT 5MG SUBCUTANEOUSLY EVERY WEEK (Patient taking differently: Takes every Thu) modafinil (PROVIGIL) 200 mg tablet Take 1 tablet by mouth once daily for 30 days. donepezil (ARICEPT) 10 mg tablet Take 2 tablets by mouth once daily. furosemide (LASIX) 20 mg tablet Take 1 tablet by mouth once daily. PRN LE Edema ramelteon (ROZEREM) 8 mg tablet Take 8 mg by mouth at bedtime as needed. losartan (COZAAR) 50 mg tablet 50 mg twice daily. carvedilol (COREG) 12.5 mg tablet Take 12.5 mg by mouth twice daily with meals. insulin lispro (HUMALOG KWIKPEN INSULIN) 100 unit/mL Use with meals based on PRE meal blood sugar SLIDING SCALE as needed #1 (1 for 50 over 150) ~20 units daily FARXIGA 10 mg tablet Take 1 tablet by mouth every morning. Insulin Scarbro, Disposable, (BD ULTRAFINE III MINI PEN) 31 gauge x 3/16 Uses 4 per day with insulin injection. flash glucose sensor (FREESTYLE JANAY 2 SENSOR) kit Change sensor every 14 days. USE FOR CONTINUOUS GLUCOSE MONITORING. MULTIPLE INSULIN INJECTIONS. E11.9 QUEtiapine (SEROQUEL) 100 mg tablet Take 100 mg by mouth daily at bedtime. ondansetron (ZOFRAN) 4 mg tablet Take 1 tablet by mouth every 8 hours as needed for nausea/vomiting. rOPINIRole (REQUIP) 1 mg tablet Take 2 mg by mouth daily at bedtime. acetaminophen (TYLENOL) 500 mg tablet Take 500 mg by mouth every 6 hours as needed for pain. apixaban (ELIQUIS) 5 mg tab(s) Take 5 mg by mouth two times a day. 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 vibegron (GEMTESA) 75 mg tablet Take 75 mg by mouth once daily. nitroglycerin sublingual (NITROQUICK) 0.4 mg SL tablet Dissolve 0.4 mg under the tongue every 5 minutes as needed. pioglitazone (ACTOS) 30 mg tablet Take 30 mg by mouth once daily. pantoprazole DR (PROTONIX) 40 mg tablet Take 40 mg by mouth once daily. DULoxetine (CYMBALTA) 30 mg capsule Take 30 mg by mouth twice daily. dicyclomine (BENTYL) 20 mg tablet Take 20 mg by mouth twice daily as needed. PROLIA 60 mg/mL once every 6 months. June and January per pt atorvastatin (LIPITOR) 40 mg tablet Take 40 mg by mouth once daily. ascorbic acid, vitamin C, (VITAMIN C) 500 mg tablet Take 1 tablet by mouth once daily. sucralfate (CARAFATE) 1 gram tablet Take 1 tablet by mouth four times daily. Cholecalciferol, Vitamin D3, 5,000 unit cap Take 1 capsule by mouth once daily. rOPINIRole (REQUIP) 1 mg tablet Take 1 mg by mouth daily with lunch. aspirin, enteric coated (ASPIRIN, ENTERIC COATED) 81 mg EC tablet Take 81 mg by mouth once daily. 01/11 LAST DOSE -7 DAYS PRIOR TO SURGERY PER DRY HOUSE TENDER FOR SURGERY 01/20/24 No current facility-administered medications for this visit. ALLERGIES Allergen Reactions Aspirin Other: See Comments To high doses Indomethacin Other: See Comments Trazodone Intolerance Unable to wake up Imitrex [Sumatripta* Vomiting BP went down Abilify [Aripiprazo* Other: See Comments Excessive drooling Clindamycin Intolerance Darvocet A500 [Prop* Intolerance Iodinated Contrast * Other: See Comments 30 yrs ago Iodine Intolerance rash Metformin GI Upset Stomach spasms Propoxyphene Other: See Comments REVIEW OF SYSTEMS - POSITIVES IN BOLD GENERAL:No weight loss, malaise or fevers HEENT:Negative for frequent or significant headaches, No changes in hearing or vision, no nose bleeds or other nasal problems NECK:Negative for lumps, goiter, pain and significant neck swelling RESPIRATORY: Negative for cough, hemoptysis, wheezing, COPD, dyspnea or shortness of breath CARDIOVASCULAR: Negative for chest pain, leg swelling, hypertension, CHF or palpitations PHYSICAL EXAMINATION: BP 126/72 Pulse 67 Temp 36.4 C (97.6 F) (Temporal Artery) Ht 157.5 cm (5' 2) Wt 77.7 kg (171 lb 6.4 oz) LMP 02/22/2000 (Approximate) SpO2 99% BMI 31.35 kg/m GENERAL: alert and appropriate, in no distress and well-hydrated, well nourished SKIN: no rash noted HEAD: normocephalic, no abnormality or lesion noted EYES: PERRL NECK: full ROM, no cervical LNs noted ACANTHOSIS: none noted EXTREMITIES: normal NEUROLOGIC: no obvious deficit ASSESSMENT/PLAN (E11.9) Controlled type 2 diabetes mellitus without complication, unspecified whether prison insulin use (HCC) (primary encounter diagnosis) Comment: CGM DOWNLOADED AND REVIEWED FOR OV RECOMMENDATIONS PER REVIEW FOLLOWS Had been well controlled until recent back surgery and recent incision infection. Is on BACTRIM at this time for the past several days for one week duration Has noticed that her blood sugars have now increased significantly Has been using her SS Will increase MOUNJARO to 7.5 mg once weekly, with plan to stop ACTOS Patient has 5 mg pens at home, if tolerate her 7.5 mg weekly GLP1, will increase to 10 mg by using up her 8 remaining pens of 5 mg If tolerates, will send RX for 10 mg DURING BACTERIAL INFECTION increase to SS#2 Recommended diet: Low carbohydrate and Low saturated fat, low simple sugar, high fiber diet Exercise minimally 150 minutes per week, increase as tolerated. Adequate hydration - 1/2 body wgt in oz of water daily, unless fluid restriction applies. I instructed the patient to monitor blood sugars 4 times per day If blood sugars are persistently high or low, to call our office. Patient to continue to follow up with her PCP and with other consultants regarding her other medical problems. Plan: COMPREHENSIVE METABOLIC PANEL, LIPID PANEL, NONFASTING, ALBUMIN/CREATININE RATIO, URINE, HEMOGLOBIN A1C Rosa Flores CNP documented in this encounter [facility] 02-24-2024 Note [facility] 02-22-2024 Note [facility] 02-21-2024 Note HNO ID: [id number] Author: QUE COOK RN Service: Nursing Author Type: Registered Nurse Type: Nursing Progress Note Filed: 02/21/2024 18:13 Note Text: Charge nurse called ALIZA Lopez for ultrasound guided IV, [facility] 02-21-2024 Note [facility] 02-20-2024 Note [facility] 02-19-2024 Telephone encounter Note Images from the original note were not included. Bill Woods PA-C P Ne[facility] Nurse Mahajan Young Can you reach out to patient to check in on how she is doing? Thanks! Called patient. Left LVM to call office. Gaby Petersen RN February 19, 2024 4:32 PM [facility] 02-19-2024 Miscellaneous Notes Images from the original note were not included. Bill Woods PA-C P Ne[facility] Nurse Mahajan Young Can you reach out to patient to check in on how she is doing? Thanks! Called patient. Left LVM to call office. Gaby Petersen RN February 19, 2024 4:32 PM documented in this encounter [facility] 02-19-2024 Note [facility] 02-19-2024 Note [facility] 02-18-2024 Note [facility] 02-18-2024 History of Present illness Narrative Images from the original note were not included. [facility] Established Patient Consultation No referring provider defined for this encounter. CC: S/p T10-T11 Laminectomy followed by L3-4 Laminectomy Subjective History of Present Illness: Mrs. Gray is a pleasant 68yo lady who was referred to us by Dr. Duarte due to concerns of thoracic myelopathy. She has a PMH significant for MS and smoking and DMII. She has a history of chronic lower back pain and more recently started noticing worsening balance and some weakness and heaviness in her legs when walking longer distances. She is ambulatory at baseline with a walker. Hx of C4-6 lami fusion and hx of L4-5 and L5-1 decompression in 2016. Denies upper extremity symptoms. On Eliquis, prior hx of [place]. Smokes half a pack a day of cigarettes. Patient does not work and is independent at home. Update 02/11/2024: Mrs. Gray returns today for a postop follow up. She refers that her lower extremities fell stronger and that her pain has improved. She is having PT daily at the nurse facility she is in. Denies other symptoms. Updates 02/18/2024: She is s/p T10-T11 and L3-L4 laminectomy 01/20/24 and presented our clinic today with wound dehiscence and signs of infection. She will be admitted for I&D tomorrow. Past Medical History: PAST MEDICAL HISTORY Diagnosis Date Anxiety and depression Atrial fibrillation (HCC) Dr. Butler following- pt states blood clot in heart Cardiomyopathy ([facility]) Cervical myelopathy (HCC) CHF (congestive heart failure) ([facility]) Cognitive impairment on aricept Colitis COPD (chronic obstructive pulmonary disease) ([facility]) Diabetes ([facility]) Dr. Flores following Dyslipidemia Full dentures GERD (gastroesophageal reflux disease) GI bleed 2020 History of loop recorder pt reports battery is PECHANGA (hard of hearing) Hypertension controlled with meds IBS (irritable bowel syndrome) Multiple sclerosis ([facility]) Dr. Woods Myocardial infarct, old 03/2016 Obesity Pain management Pancreatitis [address] Greenfield RLS (restless legs syndrome) Sleep apnea no cpap since loosing 100lbs Tobacco dependence quit 12/26 Urinary incontinence Wears glasses Past Surgical History: PAST SURGICAL HISTORY Procedure Laterality Date BACK SURGERY HX lower x3 CARPAL TUNNEL lt and rt COLONOSCOPY FLX DX W/COLLJ SPEC WHEN PFRMD 10/12/2014 Colonoscopy inpt [facility] COLONOSCOPY FLX DX W/COLLJ SPEC WHEN PFRMD 02/28/2015 Colonoscopy EYE SURGERY HX Bilateral cataract FINGER SURGERY HX thumb reconstructed KNEE SURGERY HX lt x2 PAST SURGICAL HISTORY OF partial amputation of big toe PAST SURGICAL HISTORY OF Left 01/25/2015 great toe removal PAST SURGICAL HISTORY OF Bilateral 08/2022 C3 and C6 nerve ablasions PAST SURGICAL HISTORY OF calcium removed from breast TONSILLECTOMY HX TUBAL LIGATION HX Family History: FAMILY HISTORY Problem Relation Age of Onset Cancer Father lung Cancer Mother pancreatic Multiple Sclerosis No Family History Social History Tobacco Use Smoking status: Every Day Current packs/day: 0.00 Average packs/day: 1 pack/day for 51.0 years (51.0 ttl pk-yrs) Types: Cigarettes Start date: 01/04/1973 Last attempt to quit: 12/27/2023 Years since quittin.1 Smokeless tobacco: Never Tobacco comments: Less than 10 Vaping Use Vaping status: Never Used Substance Use Topics Alcohol use: Yes Comment: 1-2 times per year flavored beer Drug use: No Allergies: Aspirin, Indomethacin, Trazodone, Imitrex [Sumatriptan], Abilify [Aripiprazole], Clindamycin, Darvocet A500 [Propoxyphene N-Acetaminophen], Iodinated Contrast Media, Iodine, Metformin, and Propoxyphene No current facility-administered medications for this visit. No current outpatient medications on file. Facility-Administered Medications Ordered in Other Visits Medication Dose Route Frequency aspirin, enteric coated 81 mg tab(s) 81 mg ORAL DAILY [START ON 02/19/2024] rOPINIRole 1 mg tab(s) (REQUIP) 1 mg ORAL DAILY wLUNCH cholecalciferol 5,000 Units tab(s) (VITAMIN D3) 5,000 Units ORAL DAILY sucralfate 1 g tab(s) (CARAFATE) 1 g ORAL QID ascorbic acid (vitamin C) 500 mg tab(s) (VITAMIN C) 500 mg ORAL DAILY pioglitazone 30 mg tab(s) (ACTOS) 30 mg ORAL DAILY pantoprazole DR 40 mg tab(s) (PROTONIX) 40 mg ORAL DAILY DULoxetine 30 mg cap(s) (CYMBALTA) 30 mg ORAL BID dicyclomine 20 mg tab(s) (BENTYL) 20 mg ORAL BID PRN atorvastatin 40 mg tab(s) (LIPITOR) 40 mg ORAL DAILY albuterol HFA 90 mcg/actuation 2 Puff (PROVENTIL HFA, VENTOLIN HFA) 2 Puff INHALATION q 4 H PRN nitroglycerin sublingual 0.4 mg tab(s) (NITROQUICK) 0.4 mg SUBLINGUAL q 5 MIN PRN rOPINIRole 2 mg tab(s) (REQUIP) 2 mg ORAL AT BEDTIME acetaminophen 500 mg tab(s) (TYLENOL) 500 mg ORAL q 6 H PRN ondansetron 4 mg tab(s) (ZOFRAN) 4 mg ORAL q 8 H PRN QUEtiapine 100 mg tab(s) (SEROquel) 100 mg ORAL AT BEDTIME dapagliflozin propanediol 10 mg tab(s) (FARXIGA) 10 mg ORAL DAILY carvedilol 12.5 mg tab(s) (COREG) 12.5 mg ORAL BID w MEALS losartan 50 mg tab(s) (COZAAR) 50 mg ORAL BID donepezil 20 mg tab(s) (ARICEPT) 20 mg ORAL DAILY fluorometholone 0.1 % 1 Drop ophthalmic drop (FML LIQUID FILM) 1 Drop BOTH EYES BID QUEtiapine 25 mg tab(s) (SEROquel) 25 mg ORAL DAILY tiZANidine 4 mg tab(s) (ZANAFLEX) 4 mg ORAL TID PRN hydrOXYzine HCl 50 mg tab(s) (ATARAX) 50 mg ORAL BID isosorbide mononitrate ER 30 mg tab(s) (IMDUR) 30 mg ORAL BID ferrous sulfate 325 mg tab(s) 325 mg ORAL DAILY modafinil 200 mg tab(s) (PROVIGIL) 200 mg ORAL DAILY oxyCODONE IR 5 mg tab(s) (ROXICODONE) 5 mg ORAL/FEEDING TUBE q 4 H PRN trospium 20 mg tab(s) (SANCTURA) 20 mg ORAL BID AC melatonin 1 mg tab(s) 1 mg ORAL DAILY (8 PM) dextrose 40 % 15 g 15 g ORAL PRN Or glucagon 1 mg injection 1 mg INTRAMUSCULAR PRN Or dextrose 10% iv bolus 12.5 g INTRAVENOUS PRN insulin lispro injection (rapid acting) (ADMElog) SUBCUTANEOUS w MEALS Employed: No Review of systems: Constitutional: No recent fever or weight loss. Eyes: No history of glaucoma or cataracts. ENMT: No recent ear infection, nasal congestion, mouth sores or sore throat. CV: No history of chest pain, palpitations or leg swelling. Respiratory: No history of SOB, asthma or recent cough. Gastrointestinal: No history of nausea, vomiting, dysphagia or abdominal pain. Genitourinary: No history of hematuria or dysuria. Musculoskeletal: No complaint of arthritis, unstable gait or arm/leg weakness. Psychiatric: No history of hallucinations or depression or anxiety. ROS Neurological: No complaint of headache. No complaint of tinnitus. No complaint of decreased hearing. No complaint of diplopia. No complaints of decreased visual acuity. No complaint of arm/leg numbness. No problem with limb coordination. No complaint of syncope, seizures or disorientation. Objective Physical Exam: Ht 157.5 cm (5' 2) Wt 75.3 kg (166 lb) LMP 02/22/2000 (Approximate) BMI 30.36 kg/m Neurological: Higher integrative functions: Oriented to person, place & time. Memory: Good recent and remote. Attention Span and Concentration: Good. Language: Accurate naming of objects. Good comprehension. Fund of Knowledge: Good. 2nd CN: Full visual jeffery. 3rd,4th,6th CN: Pupils (=), round, react to light, full extraocular movements. 5th CN: No decrease in facial sensation. 7th CN: Facial muscles symmetric and strong. 8th CN: Hears finger rub well bilaterally. 9th CN: Good gag. 10th CN: Spontaneous palate movement, full and symmetric. 11th CN: Full strength in shoulder shrug. 12th CN: Tongue protrusion full and midline. Sensation: No decrease in sensation in upper or lower limbs to touch. Musculoskeletal: unsteady gait. Motor all limbs grade 3/5 in lower extremities. Myotatic reflexes: 4/4 on lower extremities. Babinski+, Clonus + Babinski reflexes: Absent. Coordination: Rapid alternating movements fast and smooth all limbs. SLR negative bilateral Paraspinal tenderness on a palpation of lower lumbar spine Incision: C/D/I Labs: Latest Ref Rng & Units 01/05/2024 01/22/2024 02/18/2024 CBC WBC 3.70 - 11.00 k/uL 7.69 10.43 6.70 RBC 3.90 - 5.20 m/uL 4.12 3.67 3.68 Hemoglobin 11.5 - 15.5 g/dL 12.9 11.4 11.4 Hematocrit 36.0 - 46.0 % 40.0 35.3 35.5 MCV 80.0 - 100.0 fL 97.1 96.2 96.5 MCH 26.0 - 34.0 pg 31.3 31.1 31.0 MCHC 30.5 - 36.0 g/dL 32.3 32.3 32.1 RDW-CV 11.5 - 15.0 % 14.0 14.2 13.3 Platelet Count 150 - 400 k/uL 171 159 264 MPV 9.0 - 12.7 fL 9.8 10.3 9.9 Latest Ref Rng & Units 01/22/2024 02/18/2024 02/18/2024 CMP Sodium 136 - 145 mmol/L 133 138 Potassium 3.5 - 5.1 mmol/L 4.5 -- 3.9 Chloride 98 - 107 mmol/L 101 107 CO2 21 - 32 mmol/L 25 26 Glucose 70 - 100 mg/dL 300 140 BUN 7 - 26 mg/dL 35 15 Creatinine 0.51 - 0.95 mg/dL 0.97 0.57 EGFR >=60 mL/min/1.73m 63 99 Protein, Total 6.0 - 8.5 g/dL 5.6 6.3 Albumin 3.2 - 5.0 g/dL 2.8 2.9 Calcium 8.5 - 10.5 mg/dL 10.1 9.2 Bilirubin, Total 0.2 - 1.0 mg/dL 0.5 0.2 AST 8 - 34 U/L 15 -- 17 ALT 13 - 61 U/L 8 12 Alkaline Phosphatase 45 - 117 U/L 91 140 Imaging: Lumbar and thoracic Xrs showed no signs of instability or deformities. Data Review: Personal review of medical records: I reviewed the [facility] chart. Personal review of image, tracing or specimen: Chloe Mackenzie MD Assessment & Plan 68 year old female who presents with a surgical wound infection. She is s/p T10-T11 and L3-L4 laminectomy 01/20/24 and presented our clinic today with wound dehiscence and signs of infection. She will be admitted for I&D tomorrow. Recommendations: As above Medicines: No Change Instructions: Continue present activity Physician [id number] time was 30 minutes with > 50% devoted to counseling or co-ordination of care. Approximately 10 minutes were spent reviewing medical records. No resident was available to participate in this visit. I saw and evaluated the patient. Medical Decision Making: Problems: Moderate: 2+ stable chronic illnesses Data: Unique source(s) for external note(s) reviewed: 2 Unique test result(s) reviewed: 2 Medical Decision Making Level: 4 - Moderate Chloe Mackenzie MD [facility] February 18, 2024 9:24 PM documented in this encounter [facility] 02-18-2024 Nurse Note 68 y/o female presents to office with concerns of a possible wound infection. She reports that there is seepage from the incision. Denies fever or chill. Ongoing for 4 days. Was informed by the facility she was in that it appeared infected but only given a bandaid. [facility] 02-18-2024 Nurse Note 68 y/o female presents to office with concerns of a possible wound infection. She reports that there is seepage from the incision. Denies fever or chill. Ongoing for 4 days. Was informed by the facility she was in that it appeared infected but only given a bandaid. documented in this encounter [facility] 02-17-2024 Telephone encounter Note Patient c/o having blood tinged drainage to small area of wound x 2 days. She denies any s/s of infection. Her nurse at the [facility] cleaned area and applied a dressing. Patient is scheduled to see PCP on and will have him check it at that time. Per Dr. Mackenzie, scheduled office visit tomorrow 02/17 for wound check. Jazlyn Bermudez LPN [facility] 02-17-2024 Miscellaneous Notes Patient c/o having blood tinged drainage to small area of wound x 2 days. She denies any s/s of infection. Her nurse at the [facility] cleaned area and applied a dressing. Patient is scheduled to see PCP on and will have him check it at that time. Per Dr. Mackenzie, scheduled office visit tomorrow 02/17 for wound check. Jazlyn Bermudez LPN documented in this encounter [facility] 02-11-2024 Note [facility] Chloe nt 02-11-2024 History of Present illness Narrative Images from the original note were not included. [facility] Established Patient Consultation No referring provider defined for this encounter. CC: S/p T10-T11 Laminectomy followed by L3-4 Laminectomy Subjective History of Present Illness: Mrs. Gray is a pleasant 68yo lady who was referred to us by Dr. Duarte due to concerns of thoracic myelopathy. She has a PMH significant for MS and smoking and DMII. She has a history of chronic lower back pain and more recently started noticing worsening balance and some weakness and heaviness in her legs when walking longer distances. She is ambulatory at baseline with a walker. Hx of C4-6 lami fusion and hx of L4-5 and L5-1 decompression in 2015. Denies upper extremity symptoms. On Eliquis, prior hx of WV. Smokes half a pack a day of cigarettes. Patient does not work and is independent at home. Update 02/11/2024: Mrs. Gray returns today for a postop follow up. She refers that her lower extremities fell stronger and that her pain has improved. She is having PT daily at the nurse facility she is in. Denies other symptoms. Past Medical History: PAST MEDICAL HISTORY Diagnosis Date Anxiety and depression Atrial fibrillation (HCC) Dr. Butler following- pt states blood clot in heart Cardiomyopathy (HCC) Cervical myelopathy (HCC) CHF (congestive heart failure) (HCC) Cognitive impairment on aricept Colitis COPD (chronic obstructive pulmonary disease) (HCC) Diabetes (HCC) Dr. Flores following Dyslipidemia Full dentures GERD (gastroesophageal reflux disease) GI bleed 2020 History of loop recorder pt reports battery is [place]ANGA (hard of hearing) Hypertension controlled with meds IBS (irritable bowel syndrome) Multiple sclerosis (HCC) Dr. Woods Myocardial infarct, old 03/2016 Obesity Pain management Pancreatitis [address] Greenfield RLS (restless legs syndrome) Sleep apnea no cpap since loosing 100lbs Tobacco dependence quit 12/26 Urinary incontinence Wears glasses Past Surgical History: PAST SURGICAL HISTORY Procedure Laterality Date BACK SURGERY HX lower x3 CARPAL TUNNEL lt and rt COLONOSCOPY FLX DX W/COLLJ SPEC WHEN PFRMD 10/12/2014 Colonoscopy in[facility] COLONOSCOPY FLX DX W/COLLJ SPEC WHEN PFRMD 02/28/2015 Colonoscopy EYE SURGERY HX Bilateral cataract FINGER SURGERY HX thumb reconstructed KNEE SURGERY HX lt x2 PAST SURGICAL HISTORY OF partial amputation of big toe PAST SURGICAL HISTORY OF Left 01/25/2015 great toe removal PAST SURGICAL HISTORY OF Bilateral 08/2022 C3 and C6 nerve ablasions PAST SURGICAL HISTORY OF calcium removed from breast TONSILLECTOMY HX TUBAL LIGATION HX Family History: FAMILY HISTORY Problem Relation Age of Onset Cancer Father lung Cancer Mother pancreatic Multiple Sclerosis No Family History Social History Tobacco Use Smoking status: Former Current packs/day: 0.00 Average packs/day: 1 pack/day for 51.0 years (51.0 ttl pk-yrs) Types: Cigarettes Start date: 01/04/1973 Quit date: 12/27/2023 Years since quittin.1 Smokeless tobacco: Never Tobacco comments: Less than 10 Vaping Use Vaping status: Never Used Substance Use Topics Alcohol use: Yes Comment: 1-2 times per year flavored beer Drug use: No Allergies: Aspirin, Indomethacin, Trazodone, Imitrex [Sumatriptan], Abilify [Aripiprazole], Clindamycin, Darvocet A500 [Propoxyphene N-Acetaminophen], Iodinated Contrast Media, Iodine, Metformin, and Propoxyphene Current Outpatient Medications Medication Sig modafinil (PROVIGIL) 200 mg tablet Take 1 tablet by mouth once daily for 180 days. hydrOXYzine HCl (ATARAX) 50 mg tablet Take 1 tablet by mouth two times a day. isosorbide mononitrate ER (IMDUR) 30 mg 24 hr tablet Take 1 tablet by mouth two times a day. ferrous sulfate 325 mg (65 mg iron) tablet Take 1 tablet by mouth once daily. Cranberry 500 mg cap Take by mouth every morning. STOPPING FOR SURGERY 01/06/24 SURGERY 01/20/24 varenicline (CHANTIX) 0.5 mg tablet Take 0.5 mg by mouth daily with breakfast. varenicline (CHANTIX) 1 mg tablet Take 1 mg by mouth daily at bedtime. lidocaine (LIDODERM) 5 % Apply 1-2 Patches as directed once daily. TO AFFECTED AREA. REMOVE AFTER 12 HOURS. tiZANidine (ZANAFLEX) 2 mg tablet 2 mg po qam and 2-4 mg qhs prn for pain control QUEtiapine (SEROQUEL) 25 mg tablet Take 25 mg by mouth once daily. fluorometholone (FML LIQUID FILM) 0.1 % ophthalmic suspension Instill 1 drop in both eyes twice a day (Patient taking differently: Use 1 Drop in both eyes two times a day. Instill 1 drop in both eyes twice a day) triamcinolone acetonide (KENALOG) 0.1 % cream Apply thin film on right thigh once or twice daily as needed. No longer than 2 weeks in a row. (Patient taking differently: two times a day as needed. Apply thin film on right thigh once or twice daily as needed. No longer than 2 weeks in a row. OF 01/04 RESOLVED) MOUNJARO 5 mg/0.5 mL pen injector INJECT 5MG SUBCUTANEOUSLY EVERY WEEK (Patient taking differently: Takes every Thu) donepezil (ARICEPT) 10 mg tablet Take 2 tablets by mouth once daily. furosemide (LASIX) 20 mg tablet Take 1 tablet by mouth once daily. PRN LE Edema ramelteon (ROZEREM) 8 mg tablet Take 8 mg by mouth at bedtime as needed. losartan (COZAAR) 50 mg tablet 50 mg twice daily. carvedilol (COREG) 12.5 mg tablet Take 12.5 mg by mouth twice daily with meals. insulin lispro (HUMALOG KWIKPEN INSULIN) 100 unit/mL Use with meals based on PRE meal blood sugar SLIDING SCALE as needed #1 (1 for 50 over 150) ~20 units daily FARXIGA 10 mg tablet Take 1 tablet by mouth every morning. Insulin Scarbro, Disposable, (BD ULTRAFINE III MINI PEN) 31 gauge x 3/16 Uses 4 per day with insulin injection. flash glucose sensor (FREESTYLE JANAY 2 SENSOR) kit Change sensor every 14 days. USE FOR CONTINUOUS GLUCOSE MONITORING. MULTIPLE INSULIN INJECTIONS. E11.9 QUEtiapine (SEROQUEL) 100 mg tablet Take 100 mg by mouth daily at bedtime. ondansetron (ZOFRAN) 4 mg tablet Take 1 tablet by mouth every 8 hours as needed for nausea/vomiting. rOPINIRole (REQUIP) 1 mg tablet Take 2 mg by mouth daily at bedtime. acetaminophen (TYLENOL) 500 mg tablet Take 500 mg by mouth every 6 hours as needed for pain. apixaban (ELIQUIS) 5 mg tab(s) Take 5 mg by mouth two times a day. Awaiting instructions from office Stop 3 days prior to surgery 01/16/24 for surgery 01/20/24 from in file operator per DR MCAKENZIE albuterol HFA (PROVENTIL HFA, VENTOLIN HFA) 90 mcg/actuation inhaler Inhale 2 Puffs as instructed every 4 hours as needed for wheezing/shortness of breath. vibegron (GEMTESA) 75 mg tablet Take 75 mg by mouth once daily. nitroglycerin sublingual (NITROQUICK) 0.4 mg SL tablet Dissolve 0.4 mg under the tongue every 5 minutes as needed. pioglitazone (ACTOS) 30 mg tablet Take 30 mg by mouth once daily. pantoprazole DR (PROTONIX) 40 mg tablet Take 40 mg by mouth once daily. DULoxetine (CYMBALTA) 30 mg capsule Take 30 mg by mouth twice daily. dicyclomine (BENTYL) 20 mg tablet Take 20 mg by mouth twice daily as needed. PROLIA 60 mg/mL once every 6 months. June and January per pt atorvastatin (LIPITOR) 40 mg tablet Take 40 mg by mouth once daily. ascorbic acid, vitamin C, (VITAMIN C) 500 mg tablet Take 1 tablet by mouth once daily. sucralfate (CARAFATE) 1 gram tablet Take 1 tablet by mouth four times daily. Cholecalciferol, Vitamin D3, 5,000 unit cap Take 1 capsule by mouth once daily. rOPINIRole (REQUIP) 1 mg tablet Take 1 mg by mouth daily with lunch. aspirin, enteric coated (ASPIRIN, ENTERIC COATED) 81 mg EC tablet Take 81 mg by mouth once daily. 01/11 LAST DOSE -7 DAYS PRIOR TO SURGERY PER DRY HOUSE TENDER FOR SURGERY 01/20/24 No current facility-administered medications for this visit. Employed: No Review of systems: Constitutional: No recent fever or weight loss. Eyes: No history of glaucoma or cataracts. ENMT: No recent ear infection, nasal congestion, mouth sores or sore throat. CV: No history of chest pain, palpitations or leg swelling. Respiratory: No history of SOB, asthma or recent cough. Gastrointestinal: No history of nausea, vomiting, dysphagia or abdominal pain. Genitourinary: No history of hematuria or dysuria. Musculoskeletal: No complaint of arthritis, unstable gait or arm/leg weakness. Psychiatric: No history of hallucinations or depression or anxiety. ROS Neurological: No complaint of headache. No complaint of tinnitus. No complaint of decreased hearing. No complaint of diplopia. No complaints of decreased visual acuity. No complaint of arm/leg numbness. No problem with limb coordination. No complaint of syncope, seizures or disorientation. Objective Physical Exam: Pulse 80 Ht 157.5 cm (5' 2) Wt 75.3 kg (166 lb) LMP 02/22/2000 (Approximate) SpO2 96% BMI 30.36 kg/m Neurological: Higher integrative functions: Oriented to person, place & time. Memory: Good recent and remote. Attention Span and Concentration: Good. Language: Accurate naming of objects. Good comprehension. Fund of Knowledge: Good. 2nd CN: Full visual jeffery. 3rd,4th,6th CN: Pupils (=), round, react to light, full extraocular movements. 5th CN: No decrease in facial sensation. 7th CN: Facial muscles symmetric and strong. 8th CN: Hears finger rub well bilaterally. 9th CN: Good gag. 10th CN: Spontaneous palate movement, full and symmetric. 11th CN: Full strength in shoulder shrug. 12th CN: Tongue protrusion full and midline. Sensation: No decrease in sensation in upper or lower limbs to touch. Musculoskeletal: unsteady gait. Motor all limbs grade 3/5 in lower extremities. Myotatic reflexes: 4/4 on lower extremities. Babinski+, Clonus + Babinski reflexes: Absent. Coordination: Rapid alternating movements fast and smooth all limbs. SLR negative bilateral Paraspinal tenderness on a palpation of lower lumbar spine Incision: C/D/I Labs: Latest Ref Rng & Units 09/24/2023 01/05/2024 01/22/2024 CBC WBC 3.70 - 11.00 k/uL 8.79 7.69 10.43 RBC 3.90 - 5.20 m/uL 4.80 4.12 3.67 Hemoglobin 11.5 - 15.5 g/dL 15.2 12.9 11.4 Hematocrit 36.0 - 46.0 % 46.0 40.0 35.3 MCV 80.0 - 100.0 fL 95.8 97.1 96.2 MCH 26.0 - 34.0 pg 31.7 31.3 31.1 MCHC 30.5 - 36.0 g/dL 33.0 32.3 32.3 RDW-CV 11.5 - 15.0 % 14.5 14.0 14.2 Platelet Count 150 - 400 k/uL 241 171 159 MPV 9.0 - 12.7 fL 10.1 9.8 10.3 Baso% % 0.9 Abs Neut (ANC) 1.45 - 7.50 k/uL 6.28 Abs Lymph 1.00 - 4.00 k/uL 1.40 Abs Mcdowell <0.87 k/uL 0.81 Abs Eosin <0.46 k/uL 0.18 Abs Baso <0.11 k/uL 0.08 NRBC /100 WBC 0.0 Latest Ref Rng & Units 01/05/2024 01/20/2024 01/22/2024 CMP Sodium 136 - 145 mmol/L 138 133 Potassium 3.5 - 5.1 mmol/L 3.8 4.5 Chloride 98 - 107 mmol/L 107 101 CO2 21 - 32 mmol/L 27 25 Glucose 70 - 100 mg/dL 197 300 BUN 7 - 26 mg/dL 21 35 Creatinine 0.51 - 0.95 mg/dL 0.72 0.68 0.97 EGFR >=60 mL/min/1.73m 91 94 63 Protein, Total 6.0 - 8.5 g/dL 5.6 Albumin 3.2 - 5.0 g/dL 2.8 Calcium 8.5 - 10.5 mg/dL 10.4 10.1 Bilirubin, Total 0.2 - 1.0 mg/dL 0.5 AST 8 - 34 U/L 15 ALT 13 - 61 U/L 8 Alkaline Phosphatase 45 - 117 U/L 91 Imaging: Lumbar and thoracic Xrs showed no signs of instability or deformities. Data Review: Personal review of medical records: I reviewed the [facility] chart. Personal review of image, tracing or specimen: Chloe Mackenzie MD Assessment & Plan 68yo lady with severe spinal cord compression at T10-T11 with signs of spinal cord impingement. She has signs of lower extremity myelopathy. She also has a L3-4 severe spinal stenosis. He is now s/o T10-T11 Laminectomy followed by L3-4 Laminectomy on 01/20/2024. She recoverd well from surgery and denies any new symptoms. Her gait and balance have improved with PT. Lumbar and thoracic spine Xrs showed no deformities. I will see her in 6 months with a new XR. Recommendations: As above Medicines: No Change Instructions: Continue present activity Physician [id number] time was 30 minutes with > 50% devoted to counseling or co-ordination of care. Approximately 10 minutes were spent reviewing medical records. No resident was available to participate in this visit. I saw and evaluated the patient. Medical Decision Making: Problems: Moderate: 2+ stable chronic illnesses Data: Unique source(s) for external note(s) reviewed: 2 Unique test result(s) reviewed: 2 Medical Decision Making Level: 4 - Moderate Chloe Craig MD 10:08 AM 12/18/2023 [facility] documented in this encounter [facility] 02-11-2024 Nurse Note 68 y/o female presents to office for a routine op appointment. She had a T10-T11 and L3-L4 laminectomy on 01/20/2024. States her pain is a 6/10 currently, but thinks this is due to increased activity with walking to xray and back up to the office. Denies fever, nausea or vomiting. [facility] 02-11-2024 Nurse Note 68 y/o female presents to office for a routine op appointment. She had a T10-T11 and L3-L4 laminectomy on 01/20/2024. States her pain is a 6/10 currently, but thinks this is due to increased activity with walking to xray and back up to the office. Denies fever, nausea or vomiting. documented in this encounter [facility] 02-11-2024 History of Present illness Narrative Summary: XR LUMBAR Radiology Service Progress Note PATIENT NAME: Elo Gray DATE OF SERVICE: February 11, 2024 TIME: 11:00 AM PATIENT IDENTITY VERIFICATION COMPLETED USING TWO (2) IDENTIFIERS: Name and Date of confirmed by patient verbally. FALL SCREENING: Has the patient had 2 falls in the last year or 1 fall with injury or currently using an Ambulatory Assistive Device (Walker, Cane, Wheelchair, Crutches, etc.)? No PATIENT GENDER DATA: Female. status: : No status: NO. PATIENT RELEVANT IMPLANT DATA REVIEWED: Not Applicable PATIENT PRESENTS WITH AN IMPLANTABLE OR ATTACHED MARKETING PROFESSOR: No RADIOLOGY DEPARTMENT: General X-ray: Exam(s) Completed: Spine X-Ray(s): Lumbar AP / LAT / L5-S1 PERIPHERAL IV DATA: Not applicable SIGNED BY: RT Gavin(R) February 11, 2024 11:00 AM documented in this encounter [facility] 02-11-2024 Note [facility] nt 02-10-2024 Telephone encounter Note The following approved medication requests have been transmitted electronically. Requested Prescriptions Signed Prescriptions Disp Refills modafinil (PROVIGIL) 200 mg tablet 30 tablet 5 Sig: Take 1 tablet by mouth once daily for 180 days. Authorizing Provider: BILL WOODS PA-C [facility] 02-10-2024 Miscellaneous Notes The following approved medication requests have been transmitted electronically. Requested Prescriptions Signed Prescriptions Disp Refills modafinil (PROVIGIL) 200 mg tablet 30 tablet 5 Sig: Take 1 tablet by mouth once daily for 180 days. Authorizing Provider: BILL WOODS PA-C Source : electronic from pharmacy requesting refill. Delivery : e-script Requested Prescriptions Pending Prescriptions Disp Refills modafinil (PROVIGIL) 200 mg tablet [Pharmacy Med Name: modafinil 200 mg tablet] 30 tablet 5 Sig: Take 1 tablet by mouth once daily for 30 days. DX : Patient last seen: 12/24/2023 Next Appointment : None Tiffanie Cline documented in this encounter [facility] 02-10-2024 Telephone encounter Note Source : electronic from pharmacy requesting refill. Delivery : e-script Requested Prescriptions Pending Prescriptions Disp Refills modafinil (PROVIGIL) 200 mg tablet [Pharmacy Med Name: modafinil 200 mg tablet] 30 tablet 5 Sig: Take 1 tablet by mouth once daily for 30 days. DX : Patient last seen: 12/24/2023 Next Appointment : None Tiffanie Cline [facility] Work Phone: 02-09-2024 Telephone encounter Note Per Ines patient is completely out of Oxycodone, and is requesting refill be sent to [facility] pharmacy listed in [place]. Patient is s/p T10-T11 Laminectomy followed by L3-4 Laminectomy on 01/20/[address] Mackenzie. Jazlyn Bermudez LPN [facility] 02-09-2024 Miscellaneous Notes Per Ines patient is completely out of Oxycodone, and is requesting refill be sent to [facility] pharmacy listed in [place]. Patient is s/p T10-T11 Laminectomy followed by L3-4 Laminectomy on 01/20/[address] Mackenzie. Jazlyn Bermudez LPN documented in this encounter [facility] 02-05-2024 Telephone encounter Note Patient has enough Oxycodone to last over the weekend, but will need a refill when Dr. Mackenzie returns to office on 02/09/24. RF needs to be sent to [facility] pharmacy listed in [facility]. Follow up appt is scheduled on 02/11/24. Jazlyn Bermudez LPN [facility] 02-05-2024 Miscellaneous Notes Patient has enough Oxycodone to last over the weekend, but will need a refill when Dr. Mackenzie returns to office on 02/09/24. RF needs to be sent to [facility] pharmacy listed in [facility]. Follow up appt is scheduled on 02/11/24. Jazlyn Bermudez LPN documented in this encounter [facility] 02-02-2024 Telephone encounter Note Spoke to the patient to let her know that Dr. Mackenzie would like her to have xrays done prior to her appointment on 02/11/24. She understood and said she will get those done prior to her appointment. [facility] 02-02-2024 Miscellaneous Notes Spoke to the patient to let her know that Dr. Mackenzie would like her to have xrays done prior to her appointment on 02/11/24. She understood and said she will get those done prior to her appointment. documented in this encounter [facility] 01-27-2024 Telephone encounter Note JEAN MARIE Chacon with [facility], calling with request for new Oxycodone 5 mg Rx be sent to [facility] with change from every 6 hrs to every 4 hrs. Pharmacy was added to patient's chart for electronic faxing. , Fx # [phone]. Jazlyn Bermudez LPN [facility] 01-27-2024 Miscellaneous Notes Ines RN with [facility], calling with request for new Oxycodone 5 mg Rx be sent to [facility] with change from every 6 hrs to every 4 hrs. Pharmacy was added to patient's chart for electronic faxing. , Fx # [phone]. Jazlyn Bermudez LPN documented in this encounter [facility] 01-25-2024 Miscellaneous Notes Patient is s/p T10-T11 Laminectomy followed by L3-4 Laminectomy on 01/20/[address] Mackenzie. Patient is asking if Oxycodone Rx can be increased in strength or changed to every 4 hr instead of every 6 hrs. Patient states that pain is quit intense by the time her next dose is due. Patient is currently inpatient at [facility] in [place], [place]. Patient reports that she is having PT without any difficulty and will be starting OT this afternoon. Rx would have to be sent to their facility. Jazlyn Bermudez LPN documented in this encounter [facility] 01-25-2024 Telephone encounter Note Patient is s/p T10-T11 Laminectomy followed by L3-4 Laminectomy on 01/20/[address] Mackenzie. Patient is asking if Oxycodone Rx can be increased in strength or changed to every 4 hr instead of every 6 hrs. Patient states that pain is quit intense by the time her next dose is due. Patient is currently inpatient at [facility] in [place], [place]. Patient reports that she is having PT without any difficulty and will be starting OT this afternoon. Rx would have to be sent to their facility. Jazlyn Bermudez LPN [facility] 01-22-2024 Note HNO ID: [id number] Author: BARRETT SAWYER RN Service: Nursing Author Type: Registered Nurse Type: Nursing Progress Note Filed: 01/22/2024 14:12 Note Text: RN gave N2N report to kishore at [facility] 01-21-2024 Note [facility] nt 01-20-2024 Note [facility] 01-20-2024 Note [facility] nt 01-20-2024 Note [facility] 01-20-2024 Note HNO ID: [id number] Author: CYNDI MARTINEZ RN Service: Nursing Author Type: Registered Nurse Type: Nursing Progress Note Filed: 01/20/2024 11:03 Note Text: Dr Pace notified of recheck blood sugar 211, to recheck in [address] [facility] 01-19-2024 Note [facility] 01-07-2024 Telephone encounter Note Called patient with + MRSA results. Left message to call office. Jazlyn Bermudez LPN [facility] 01-07-2024 Miscellaneous Notes Called patient with + MRSA results. Left message to call office. Jazlyn Bermudez LPN documented in this encounter [facility] 01-06-2024 Note HNO ID: [id number] Author: JANELL WEAVER RN Service: Nursing Author Type: Registered Nurse Type: Plan of Care Filed: 01/06/2024 11:25 Note Text: + MRSA results called to Jazlyn/ Dr. Mackenzie [facility] 01-06-2024 Telephone encounter Note Form signed by provider and faxed to [phone]. Confirmation received. Placed in file. Amy Campbell MA [facility] 01-06-2024 Miscellaneous Notes Form signed by provider and faxed to [phone]. Confirmation received. Placed in file. Amy Campbell MA A1C 6.8%, low risk for DM complications, cleared from ENDO Form completed documented in this encounter [facility] 01-06-2024 Telephone encounter Note A1C 6.8%, low risk for DM complications, cleared from ENDO Form completed [facility] 01-05-2024 Note Addended by: HEATHER MARIO on: 01/05/2024 12:16 PM Modules accepted: Orders [facility] 01-05-2024 Miscellaneous Notes Addended by: HEATHER MARIO on: 01/05/2024 12:16 PM Modules accepted: Orders documented in this encounter [facility] 01-05-2024 Note [facility] nt 01-05-2024 History of Present illness Narrative PACC Consult SERVICE DATE: 01/05/2024 SERVICE TIME: 9:18 AM PRIMARY CARE PHYSICIAN: Melodie Marina CNP REASON FOR VISIT: Elo Gray is a 68 year old female who is scheduled for T10-T11 lami, L3-4 lami at the request of Dr. Mackenzie for consultation. My final recommendation will be communicated back to the requesting physician by way of shared medical record or letter. The patient has the following: ACTIVE PROBLEM LIST Colitis Htn (Hypertension) Ms (Multiple Sclerosis) (Hcc) Ulcerative Colitis (Hcc) Diabetes Mellitus (Hcc) Paroxysmal A-Fib (Hcc) Tobacco Dependence Dyslipidemia Anxiety and Depression Cardiomyopathy (Hcc) Lv (Left Ventricular) Mural Thrombus Obesity, Class I, Bmi 30-34.9 Chronic Fatigue Kyphosis Myofascial Pain Syndrome Subjective CHIEF COMPLAINT: preop exam 68yo female, smoker. PMH: COPD, HTN, HLD, CHF, cardiomyopathy, CAD s/p [place] (ASA, Imdur), AF on eliquis ([facility]), IDDM (Mounjaro on Thu, ), RLS, renal insufficiency, IBS, GIB, GERD, colitis, pancreatitis, cognitive impairment, previous suicide attempt 2016, anxiety, depression, toe amputation due to infection, chronic back pain s/p cervical fusion/lumbar decompression 2015, recurrent UTI. Has c/o worsening balance and weakness/heaviness in her legs using Rolator. MS (JOHN Woods; Kesimpta on hold, Provigil, Aricept) Per neurology notes from October, Kesimpta has been held for the last 3 mos due to immunosuppression. Patient gets recurrent skin infections on her face. PA from Carrie's office provided cardiac clearance. Did not provide instructions on eliquis or ASA. MRI Brain 07/2023: Multiple intracranial white matter lesions compatible with multiple sclerosis. No new T2 lesions and indeterminate new enhancing lesions. Mild parenchymal volume loss. [facility] [facility]CP, ABN stress[facility] IMPRESSION: 1. Normal coronary anatomy. 2. Normal left ventricular systolic function, ejection fraction greater than 55%. 3. Normal aortic root angiogram. 4. Indwelling loop recorder. 5. Mild systolic arterial hypertension. No measurements provided ECHO 09/2021 - The left ventricle is mildly dilated. There is left ventricular hypertrophy. Left ventricular systolic function is mildly decreased. EF = 48 5% (2D biplane) Definity contrast used for endocardial border detection. Grade I left ventricular diastolic dysfunction. Cannot rule out small LV apical transmural thrombus- The right ventricle is normal in size. Right ventricular systolic function is normal. - The left atrial cavity is moderately dilated. - The right atrial cavity is dilated. - There are no significant valvular abnormalities. - Estimated right ventricular systolic pressure is not reported due to an insufficient tricuspid regurgitation signal. Estimated right atrial pressure is 3 mmHg based on IVC assessment. PAST MEDICAL HISTORY No date: Anxiety and depression No date: Atrial fibrillation ([facility]) Comment: Dr. Butler following- pt states blood clot in heart No date: Cardiomyopathy ([facility]) No date: Cervical myelopathy ([facility]) No date: CHF (congestive heart failure) ([facility]) No date: Cognitive impairment Comment: on aricept No date: Colitis No date: COPD (chronic obstructive pulmonary disease) ([facility]) No date: Diabetes ([facility]) Comment: Dr. Flores following No date: Dyslipidemia No date: Full dentures No date: GERD (gastroesophageal reflux disease) No date: GI bleed Comment: 2020 No date: History of loop recorder Comment: pt reports battery is No date: [place] (hard of hearing) No date: Hypertension Comment: controlled with meds No date: IBS (irritable bowel syndrome) No date: Multiple sclerosis ([facility]) Comment: Dr. Woods 03/2016: Myocardial infarct, old No date: Obesity No date: Pain management 1977: Pancreatitis No date: Renal insufficiency Comment: Dr. Greenfield No date: RLS (restless legs syndrome) No date: Sleep apnea Comment: no cpap since loosing 100lbs No date: Tobacco dependence Comment: quit 12/26 No date: Urinary incontinence No date: Wears glasses PAST SURGICAL HISTORY No date: BACK SURGERY HX Comment: lower x3 No date: CARPAL TUNNEL Comment: lt and rt 10/12/2014: COLONOSCOPY FLX DX W/COLLJ SPEC WHEN PFRMD Comment: Colonoscopy in[facility] 02/28/2015: COLONOSCOPY FLX DX W/COLLJ SPEC WHEN PFRMD Comment: Colonoscopy No date: EYE SURGERY HX; Bilateral Comment: cataract No date: FINGER SURGERY HX Comment: thumb reconstructed No date: KNEE SURGERY HX Comment: lt x2 No date: PAST SURGICAL HISTORY OF Comment: partial amputation of big toe 01/25/2015: PAST SURGICAL HISTORY OF; Left Comment: great toe removal 08/2022: PAST SURGICAL HISTORY OF; Bilateral Comment: C3 and C6 nerve ablasions No date: PAST SURGICAL HISTORY OF Comment: calcium removed from breast No date: TONSILLECTOMY HX No date: TUBAL LIGATION HX FAMILY HISTORY Problem Relation Age of Onset Cancer Father lung Cancer Mother pancreatic Multiple Sclerosis No Family History SOCIAL HISTORY: Social History Tobacco Use Smoking status: Former Current packs/day: 0.00 Average packs/day: 1 pack/day for 51.0 years (51.0 ttl pk-yrs) Types: Cigarettes Start date: 01/04/1973 Quit date: 12/27/2023 Years since quittin.0 Smokeless tobacco: Never Tobacco comments: Less than 10 Vaping Use Vaping status: Never Used Substance Use Topics Alcohol use: Yes Comment: 1-2 times per year flavored beer Drug use: No Prior to Admission medications as of 01/05/24 0822 Medication Sig Last Dose Taking varenicline (CHANTIX) 0.5 mg tablet Take 0.5 mg by mouth daily with breakfast. Taking Yes varenicline (CHANTIX) 1 mg tablet Take 1 mg by mouth daily at bedtime. Taking Yes lidocaine (LIDODERM) 5 % Apply 1-2 Patches as directed once daily. TO AFFECTED AREA. REMOVE AFTER 12 HOURS. Taking Yes tiZANidine (ZANAFLEX) 2 mg tablet 2 mg po qam and 2-4 mg qhs prn for pain control Taking Yes doxycycline hyclate (VIBRAMYCIN) 100 mg capsule Take 100 mg by mouth two times a day. starting 12/08/2023 Taking Yes oxyCODONE-acetaminophen (PERCOCET) 5-325 mg tablet 1/2-1 tab po daily prn pain - 18 tablets total Patient should start on December 16, 2023. Taking Yes QUEtiapine (SEROQUEL) 25 mg tablet Take 25 mg by mouth once daily. Taking Yes fluorometholone (FML LIQUID FILM) 0.1 % ophthalmic suspension Instill 1 drop in both eyes twice a day Patient taking differently: Use 1 Drop in both eyes two times a day. Instill 1 drop in both eyes twice a day Taking Yes triamcinolone acetonide (KENALOG) 0.1 % cream Apply thin film on right thigh once or twice daily as needed. No longer than 2 weeks in a row. Patient taking differently: two times a day as needed. Apply thin film on right thigh once or twice daily as needed. No longer than 2 weeks in a row. OF 01/04 RESOLVED Taking Yes MOUNJARO 5 mg/0.5 mL pen injector INJECT 5MG SUBCUTANEOUSLY EVERY WEEK Patient taking differently: Takes every Thu Taking Yes modafinil (PROVIGIL) 200 mg tablet Take 1 tablet by mouth once daily for 30 days. Taking Yes donepezil (ARICEPT) 10 mg tablet Take 2 tablets by mouth once daily. Taking Yes potassium chloride (KLOR-CON) 20 mEq packet Take 20 mEq by mouth once daily. PRN LE edema Taking Yes furosemide (LASIX) 20 mg tablet Take 1 tablet by mouth once daily. PRN LE Edema Taking Yes ramelteon (ROZEREM) 8 mg tablet Take 8 mg by mouth at bedtime as needed. Taking Yes doxycycline monohydrate (MONODOX) 100 mg capsule Take 1 capsule by mouth two times a day. When needed for a flare-up. Taking Yes mupirocin (BACTROBAN) 2 % ointment Apply to wound twice daily until healed. Taking Yes losartan (COZAAR) 50 mg tablet 50 mg twice daily. Taking Yes carvedilol (COREG) 12.5 mg tablet Take 12.5 mg by mouth twice daily with meals. Taking Yes insulin lispro (HUMALOG KWIKPEN INSULIN) 100 unit/mL Use with meals based on PRE meal blood sugar SLIDING SCALE as needed #1 (1 for 50 over 150) ~20 units daily Taking Yes FARXIGA 10 mg tablet Take 1 tablet by mouth every morning. Taking Yes Insulin Scarbro, Disposable, (BD ULTRAFINE III MINI PEN) 31 gauge x 3/16 Uses 4 per day with insulin injection. Taking Yes flash glucose sensor (FREESTYLE JANAY 2 SENSOR) kit Change sensor every 14 days. USE FOR CONTINUOUS GLUCOSE MONITORING. MULTIPLE INSULIN INJECTIONS. E11.9 Taking Yes QUEtiapine (SEROQUEL) 100 mg tablet Take 100 mg by mouth daily at bedtime. Taking Yes ondansetron (ZOFRAN) 4 mg tablet Take 1 tablet by mouth every 8 hours as needed for nausea/vomiting. Taking Yes isosorbide mononitrate ER (IMDUR) 30 mg 24 hr tablet Take 1 tablet by mouth once daily. Patient taking differently: Take 30 mg by mouth two times a day. Taking Yes ferrous sulfate 325 mg (65 mg iron) tablet Take 1 tablet by mouth every 48 hours. Patient taking differently: Take 325 mg by mouth once daily. Taking Yes rOPINIRole (REQUIP) 1 mg tablet Take 2 mg by mouth daily at bedtime. Taking Yes acetaminophen (TYLENOL) 500 mg tablet Take 500 mg by mouth every 6 hours as needed for pain. Taking Yes apixaban (ELIQUIS) 5 mg tab(s) Take 5 mg by mouth two times a day. Awaiting instructions from office Stop 3 days prior to surgery 01/16/24 for surgery 01/20/24 from in file operator per DR MACKENZIE Taking Yes albuterol HFA (PROVENTIL HFA, VENTOLIN HFA) 90 mcg/actuation inhaler Inhale 2 Puffs as instructed every 4 hours as needed for wheezing/shortness of breath. Taking Yes vibegron (GEMTESA) 75 mg tablet Take 75 mg by mouth once daily. Taking Yes nitroglycerin sublingual (NITROQUICK) 0.4 mg SL tablet Dissolve 0.4 mg under the tongue every 5 minutes as needed. Taking Yes pioglitazone (ACTOS) 30 mg tablet Take 30 mg by mouth once daily. Taking Yes pantoprazole DR (PROTONIX) 40 mg tablet Take 40 mg by mouth once daily. Taking Yes DULoxetine (CYMBALTA) 30 mg capsule Take 30 mg by mouth twice daily. Taking Yes dicyclomine (BENTYL) 20 mg tablet Take 20 mg by mouth twice daily as needed. Taking Yes PROLIA 60 mg/mL once every 6 months. June and January per pt Taking Yes atorvastatin (LIPITOR) 40 mg tablet Take 40 mg by mouth once daily. Taking Yes ascorbic acid, vitamin C, (VITAMIN C) 500 mg tablet Take 1 tablet by mouth once daily. Taking Yes sucralfate (CARAFATE) 1 gram tablet Take 1 tablet by mouth four times daily. Taking Yes hydrOXYzine HCl (ATARAX) 50 mg tablet Take 1 tablet by mouth three times daily as needed. Patient taking differently: Take 50 mg by mouth two times a day. Taking Yes Cholecalciferol, Vitamin D3, 5,000 unit cap Take 1 capsule by mouth once daily. Taking Yes rOPINIRole (REQUIP) 1 mg tablet Take 1 mg by mouth daily with lunch. Taking Yes aspirin, enteric coated (ASPIRIN, ENTERIC COATED) 81 mg EC tablet Take 81 mg by mouth once daily. 01/11 LAST DOSE -7 DAYS PRIOR TO SURGERY PER DRY HOUSE TENDER FOR SURGERY 01/20/24 Taking Yes Cranberry 500 mg cap Take by mouth every morning. STOPPING FOR SURGERY 01/06/24 SURGERY 01/20/24 teriflunomide (AUBAGIO) 14 mg TAKE 1 TABLET BY MOUTH ONCE DAILY. No medication comments found. ALLERGIES Allergen Reactions Aspirin Other: See Comments To high doses Indomethacin Other: See Comments Trazodone Intolerance Unable to wake up Imitrex [Sumatripta* Vomiting BP went down Abilify [Aripiprazo* Other: See Comments Excessive drooling Clindamycin Intolerance Darvocet A500 [Prop* Intolerance Iodinated Contrast * Other: See Comments 30 yrs ago Iodine Intolerance rash Metformin GI Upset Stomach spasms Propoxyphene Other: See Comments REVIEW OF SYSTEMS: PAIN ASSESSMENT: Pain Pain Level: 5 Frequency: Intermittent General: No weight loss, malaise or fevers. 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 No neurological symptoms or problems., See HPI Respiratory: Denies COPD, reports seeing pulm 7+ years ago and had PFT done. Uses albuterol inhaler when she gets a cold. Cardiovascular: See HPI GI: Positive for GERD, PUD, Hx pancreatitis : No history of dysuria, frequency or incontinence,, stones or chronic kidney disease, Positive for frequent UTI HUNTING AND FISHING GUIDE: Negative for abnormal vaginal bleeding, abnormal vaginal discharge. : , Patient's last menstrual period was 02/22/2000 (approximate). Endocrine: Diabetes Mellitus on insulin Hematology: Chronic anti-coagulation / platelet meds (Aspirin, DOAC) Oncology: No history of CA metastasis, chemo within 30 days, or radiotherapy within 90 days. Has not lost 10% of body wt in 6 months. No history of oncological symptoms or problems. Psych: No history of psychiatric symptoms or problems. Musculoskeletal: Back pain Skin: Negative for lesions, rash and itching. Objective PHYSICAL EXAM: VITALS: BP 108/46 Pulse 57 Resp 18 Ht 5' 2 (1.58m) Wt 163 lb (73.9kg) SpO2 98% LMP 02/22/2000 BMI 29.81 kg/(m^2). General: Alert and oriented Skin: excoriations on face, no cellulitis. Bandaid on bridge of nose from striking a cupboard. HEENT: EOM, pupils equal, round and reactive. Cardiovascular: Normal S1 & S2, no rubs, murmurs or gallops. No JVD. Pulse regular. Lungs: Normal breath sounds, no wheezes or crackles. Extremities: No deformity, no edema or tenderness, no joint swelling or clubbing. No edema Neurological: Normal cognition and motor skills. Pulses: Carotid and radial pulses normal +2. Diagnostic tests reviewed for today's visit: Lab Value Units Date High Low HB 12.9 g/dL 01/05/2024 15.5 11.5 HCT 40.0 % 01/05/2024 46.0 36.0 WBC 7.69 k/uL 01/05/2024 11.00 3.70 PLT 171 k/uL 01/05/2024 400 150 NA 138 mmol/L 01/05/2024 145 136 K 3.8 mmol/L 01/05/2024 5.1 3.5 GLUC 197 mg/dL 01/05/2024 100 70 BUN 21 mg/dL 01/05/2024 26 7 CREAT 0.72 mg/dL 01/05/2024 0.95 0.51 PTSEC 11.0 sec 01/05/2024 13.0 9.7 INR 1.0 no uni* 01/05/2024 1.3 0.9 APTT No results within date range. ALT 14 U/L 11/10/2023 38 7 AST 14 U/L 11/10/2023 35 13 TBILI 0.3 mg/dL 11/10/2023 1.3 0.2 TSH No results within date range. Lab Value Units Date High Low HCGQT No results within date range. UHCG No results within date range. HCG, BODY* No results within date range. Lab Value Units Date High Low ABORHD No results within date range. ABSCREEN No results within date range. Hemoglobin A1C (%) Date Value 11/10/2023 7.2 07/27/2023 6.7 01/14/2023 7.1 10/22/2021 8.0 Hemoglobin A1C (POCT) (%) Date Value 08/06/2022 8.5 PENDING Assessment/Plan ASSESSMENT/PLAN: 1. Preop testing - ICD9: V72.84, ICD10: Z01.818 (primary diagnosis) I had the pleasure of meeting Kendra in [place]. She has chronic low back pain but has developed myelopathy and she's coming in for lower thoracic and lumbar laminectomy. She's using a Rolator today and at home. She has a lift to go up 4 stairs at home. Her back has definitely affected her functional capacity. She denies loss of bowel or bladder control. She's already been cleared by cardiology (clearance in [facility]) who provided ASA and Eliquis instructions over the phone with the patient while Heather RN was rooming her. She denies any previous issues with anesthesia. - HEMOGLOBIN A1C - NT PRO BNP 2. Spinal stenosis of thoracic, lumbar region with myelopathy - surgery scheduled -no cauda equina symptoms 3. Chronic congestive heart failure, unspecified heart failure type (HCC) - ICD9: 428.0, ICD10: I50.9 - Euvolemic today -Uses Lasix PRN - not needed in last 4 months. Denies LE swelling, orthopnea/PND 4. Chronic obstructive pulmonary disease, unspecified COPD type (HCC) - ICD9: 496, ICD10: J44.9 -Patient says she saw pulm 7 years ago, had PFTs done and was told she does not have COPD. She has an inhaler she uses only when she gets an URI 5. Gastroesophageal reflux disease without esophagitis - ICD9: 530.81, ICD10: K21.9 -Controlled on meds - continue amy-op -Hx of PUD with upper GIB while on higher dose ASA.She can take 81mg ASA w/o any issues. -Follows with Dr. Jiménez 6. MS -Managed by Carlos INFANTE at [facility] -Recently taken off of Kesimpta due to skin breakout of face according to patient. -Patient has mild cognitive impairment on Aricept. 7. HTN -BP at goal today -Continue current medications. Losartan held DOS per guidelines 8. DM on insulin, Mounjaro and Farxiga -Patient reports good BS at home -A1C and BMP pending -Mounjaro dose the week before held. Farxiga held 3 days preop - no fast acting insulin DOS -Hx of neuropathy LE and had infected toe that became infected from mowing which required amputation. 9. CAD -Denies angina however functional capacity limited due to her back issues. She does PT twice weekly and denies CP with any activities -Carrie has provided cardiology clearance and directions for ASA 10. Afib - On Eliquis, amy-op instructions provided by Carrie's office while in [place]. 11. Excoriations on face - Patient was taken off of Kesimpta with the thought this may be contributing. The patient believes a spider bit her on the chin this past weekend at her son's. She takes Doxycycline PRN for breakouts and just finished 7 day course. She saw dermatology yesterday who put her on kenalog crm for the area on her chin. She is going directly to Dr. Mackenzie's office after leaving [place] so he is aware of the excoriations on her face and recent ATB use. The area on the chin does not appear to be cellulitic on my exam. 12. Renal insufficiency by Hx -renal function last 6 months in NML Cheko Bowling PA-C METS: Take care of self; that is eating, dressing, bathing, using the toilet (2.75 METs) Patient denies any chest pain or undue shortness of breath with the above physical activity. Limited most or all of the time (uses scooter, mobility device) ANESTHESIA FINDINGS: Intubation History: No history of difficult intubation Significant Anesthesia Considerations: None Airway History: No abnormal airway history Planned Anesthetic: General and Per anesthesia choice Instructions Given to Patient: Instructions located in the after visit summary. Patient given verbal and written preop instructions and voices comprehension and compliance. SIGNATURE: Cheko Bowling PA-C PATIENT NAME: Elo Gray DATE: January 05, 2024 TIME: 9:18 AM Summary: DOS meds MEDICATION INSTRUCTIONS PRIOR TO SURGERY Please read below carefully for your personalized instructions. Medications: If you are on blood thinner or anticoagulants including aspirin, please confirm with your surgical team on when to stop these medications. Unless instructed differently by your surgical team, stay on all of your medications until your surgery. Pre-Surgery Med Instructions Medication Instructions varenicline (CHANTIX) 0.5 mg tablet If you normally take this medication in the morning, it is ok to take the morning of surgery with a sip of water. varenicline (CHANTIX) 1 mg tablet lidocaine (LIDODERM) 5 % DO NOT TAKE MORNING OF SURGERY tiZANidine (ZANAFLEX) 2 mg tablet PRN if needed doxycycline hyclate (VIBRAMYCIN) 100 mg capsule DO NOT TAKE MORNING OF SURGERY oxyCODONE-acetaminophen (PERCOCET) 5-325 mg tablet PRN if needed QUEtiapine (SEROQUEL) 25 mg tablet fluorometholone (FML LIQUID FILM) 0.1 % ophthalmic suspension Use Day of Surgery triamcinolone acetonide (KENALOG) 0.1 % cream DO NOT TAKE MORNING OF SURGERY MOUNJARO 5 mg/0.5 mL pen injector Hold 1 week before surgery modafinil (PROVIGIL) 200 mg tablet DO NOT TAKE MORNING OF SURGERY donepezil (ARICEPT) 10 mg tablet Take morning of surgery with a sip of water, no other fluids potassium chloride (KLOR-CON) 20 mEq packet DO NOT TAKE MORNING OF SURGERY furosemide (LASIX) 20 mg tablet DO NOT TAKE MORNING OF SURGERY ramelteon (ROZEREM) 8 mg tablet mupirocin (BACTROBAN) 2 % ointment DO NOT TAKE MORNING OF SURGERY losartan (COZAAR) 50 mg tablet DO NOT TAKE MORNING OF SURGERY carvedilol (COREG) 12.5 mg tablet Take morning of surgery with a sip of water, no other fluids insulin lispro (HUMALOG KWIKPEN INSULIN) 100 unit/mL DO NOT TAKE MORNING OF SURGERY FARXIGA 10 mg tablet Hold 3 days preop QUEtiapine (SEROQUEL) 100 mg tablet ondansetron (ZOFRAN) 4 mg tablet PRN if needed isosorbide mononitrate ER (IMDUR) 30 mg 24 hr tablet If you normally take this medication in the morning, it is ok to take the morning of surgery with a sip of water. ferrous sulfate 325 mg (65 mg iron) tablet DO NOT TAKE MORNING OF SURGERY rOPINIRole (REQUIP) 1 mg tablet If you normally take this medication in the morning, it is ok to take the morning of surgery with a sip of water. acetaminophen (TYLENOL) 500 mg tablet PRN if needed apixaban (ELIQUIS) 5 mg tab(s) Follow Prescribers Instructions last dose 01/15 albuterol HFA (PROVENTIL HFA, VENTOLIN HFA) 90 mcg/actuation inhaler Use Day of Surgery vibegron (GEMTESA) 75 mg tablet If you normally take this medication in the morning, it is ok to take the morning of surgery with a sip of water. nitroglycerin sublingual (NITROQUICK) 0.4 mg SL tablet PRN if needed pioglitazone (ACTOS) 30 mg tablet DO NOT TAKE MORNING OF SURGERY pantoprazole DR (PROTONIX) 40 mg tablet Take morning of surgery with a sip of water, no other fluids DULoxetine (CYMBALTA) 30 mg capsule If you normally take this medication in the morning, it is ok to take the morning of surgery with a sip of water. dicyclomine (BENTYL) 20 mg tablet PRN if needed PROLIA 60 mg/mL atorvastatin (LIPITOR) 40 mg tablet If you normally take this medication in the morning, it is ok to take the morning of surgery with a sip of water. ascorbic acid, vitamin C, (VITAMIN C) 500 mg tablet Follow Surgeon's instructions - hold 2 weeks preop sucralfate (CARAFATE) 1 gram tablet Take morning of surgery with a sip of water, no other fluids hydrOXYzine HCl (ATARAX) 50 mg tablet PRN if needed Cholecalciferol, Vitamin D3, 5,000 unit cap Follow Surgeon's instructions - hold 2 weeks preop rOPINIRole (REQUIP) 1 mg tablet aspirin, enteric coated (ASPIRIN, ENTERIC COATED) 81 mg EC tablet Follow Prescribers Instructions hold 1 week preop last dose 01/12 - Accucheck day of surgery. - No oral diabetic medication the morning of surgery. - If you take Invokana, Farxiga or Jardiance, hold 3 day pre-op - If you take one of the following weekly injectable medications, skip your dose the week before surgery: tirzepatide, semaglutide, dulaglutide, liraglutide, exentatide If you have any medication changes between receiving these instructions and your surgery date, please provide this updated information with the nurse who calls you the week day prior to your surgical procedure so we can update your list and provide you with updated instructions for the morning of your procedure. Summary: PREANESTHESIA REVIEW T10-T11 lami, L3-4 lami 01/19 Avril (2hrs) 68yo female, smoker. PMH: COPD, HTN, HLD, CHF, cardiomyopathy, CAD s/p [place] (ASA, Imdur), AF on eliquis (Carrie), MS (JOHN Woods; Kesimpta), IDDM (Mounjaro on ), RLS, renal insufficiency, IBS, GIB, GERD, colitis, pancreatitis, cognitive impairment, previous suicide attempt, anxiety, depression, toe amputation, chronic back pain s/p cervical fusion/lumbar decompression 2015, recurrent UTI. Has c/o worsening balance and weakness/heaviness in her legs. On Provigil, aricept Per neurology notes from October, Kesimpta has been held for the last 3 mos due to immunosuppression. JOHN from [facility]'s office provided cardiac clearance. Did not provide instructions on eliquis or ASA. MRI Brain 07/2023: Multiple intracranial white matter lesions compatible with multiple sclerosis. No new T2 lesions and indeterminate new enhancing lesions. Mild parenchymal volume loss. [facility] 2021 (CP, ABN stress) IMPRESSION: 1. Normal coronary anatomy. 2. Normal left ventricular systolic function, ejection fraction greater than 55%. 3. Normal aortic root angiogram. 4. Indwelling loop recorder. 5. Mild systolic arterial hypertension. No measurements provided ECHO 09/2021 - The left ventricle is mildly dilated. There is left ventricular hypertrophy. Left ventricular systolic function is mildly decreased. EF = 48 5% (2D biplane) Definity contrast used for endocardial border detection. Grade I left ventricular diastolic dysfunction. Cannot rule out small LV apical transmural thrombus- The right ventricle is normal in size. Right ventricular systolic function is normal. - The left atrial cavity is moderately dilated. - The right atrial cavity is dilated. - There are no significant valvular abnormalities. - Estimated right ventricular systolic pressure is not reported due to an insufficient tricuspid regurgitation signal. Estimated right atrial pressure is 3 mmHg based on IVC assessment. documented in this encounter [facility] 01-05-2024 Instructions Cheko Bowling PA-C - 01/05/2024 8:47 AM EDT MEDICATION INSTRUCTIONS PRIOR TO SURGERY Please read below carefully for your personalized instructions. Medications: If you are on blood thinner or anticoagulants including aspirin, please confirm with your surgical team on when to stop these medications. Unless instructed differently by your surgical team, stay on all of your medications until your surgery. Pre-Surgery Med Instructions Medication Instructions varenicline (CHANTIX) 0.5 mg tablet If you normally take this medication in the morning, it is ok to take the morning of surgery with a sip of water. varenicline (CHANTIX) 1 mg tablet lidocaine (LIDODERM) 5 % DO NOT TAKE MORNING OF SURGERY tiZANidine (ZANAFLEX) 2 mg tablet PRN if needed doxycycline hyclate (VIBRAMYCIN) 100 mg capsule DO NOT TAKE MORNING OF SURGERY oxyCODONE-acetaminophen (PERCOCET) 5-325 mg tablet PRN if needed QUEtiapine (SEROQUEL) 25 mg tablet fluorometholone (FML LIQUID FILM) 0.1 % ophthalmic suspension Use Day of Surgery triamcinolone acetonide (KENALOG) 0.1 % cream DO NOT TAKE MORNING OF SURGERY MOUNJARO 5 mg/0.5 mL pen injector Hold 1 week before surgery modafinil (PROVIGIL) 200 mg tablet DO NOT TAKE MORNING OF SURGERY donepezil (ARICEPT) 10 mg tablet Take morning of surgery with a sip of water, no other fluids potassium chloride (KLOR-CON) 20 mEq packet DO NOT TAKE MORNING OF SURGERY furosemide (LASIX) 20 mg tablet DO NOT TAKE MORNING OF SURGERY ramelteon (ROZEREM) 8 mg tablet mupirocin (BACTROBAN) 2 % ointment DO NOT TAKE MORNING OF SURGERY losartan (COZAAR) 50 mg tablet DO NOT TAKE MORNING OF SURGERY carvedilol (COREG) 12.5 mg tablet Take morning of surgery with a sip of water, no other fluids insulin lispro (HUMALOG KWIKPEN INSULIN) 100 unit/mL DO NOT TAKE MORNING OF SURGERY FARXIGA 10 mg tablet Hold 3 days preop QUEtiapine (SEROQUEL) 100 mg tablet ondansetron (ZOFRAN) 4 mg tablet PRN if needed isosorbide mononitrate ER (IMDUR) 30 mg 24 hr tablet If you normally take this medication in the morning, it is ok to take the morning of surgery with a sip of water. ferrous sulfate 325 mg (65 mg iron) tablet DO NOT TAKE MORNING OF SURGERY rOPINIRole (REQUIP) 1 mg tablet If you normally take this medication in the morning, it is ok to take the morning of surgery with a sip of water. acetaminophen (TYLENOL) 500 mg tablet PRN if needed apixaban (ELIQUIS) 5 mg tab(s) Follow Prescribers Instructions last dose 01/15 albuterol HFA (PROVENTIL HFA, VENTOLIN HFA) 90 mcg/actuation inhaler Use Day of Surgery vibegron (GEMTESA) 75 mg tablet If you normally take this medication in the morning, it is ok to take the morning of surgery with a sip of water. nitroglycerin sublingual (NITROQUICK) 0.4 mg SL tablet PRN if needed pioglitazone (ACTOS) 30 mg tablet DO NOT TAKE MORNING OF SURGERY pantoprazole DR (PROTONIX) 40 mg tablet Take morning of surgery with a sip of water, no other fluids DULoxetine (CYMBALTA) 30 mg capsule If you normally take this medication in the morning, it is ok to take the morning of surgery with a sip of water. dicyclomine (BENTYL) 20 mg tablet PRN if needed PROLIA 60 mg/mL atorvastatin (LIPITOR) 40 mg tablet If you normally take this medication in the morning, it is ok to take the morning of surgery with a sip of water. ascorbic acid, vitamin C, (VITAMIN C) 500 mg tablet Follow Surgeon's instructions - hold 2 weeks preop sucralfate (CARAFATE) 1 gram tablet Take morning of surgery with a sip of water, no other fluids hydrOXYzine HCl (ATARAX) 50 mg tablet PRN if needed Cholecalciferol, Vitamin D3, 5,000 unit cap Follow Surgeon's instructions - hold 2 weeks preop rOPINIRole (REQUIP) 1 mg tablet aspirin, enteric coated (ASPIRIN, ENTERIC COATED) 81 mg EC tablet Follow Prescribers Instructions hold 1 week preop last dose 01/12 - Accucheck day of surgery. - No oral diabetic medication the morning of surgery. - If you take Invokana, Farxiga or Jardiance, hold 3 day pre-op - If you take one of the following weekly injectable medications, skip your dose the week before surgery: tirzepatide, semaglutide, dulaglutide, liraglutide, exentatide If you have any medication changes between receiving these instructions and your surgery date, please provide this updated information with the nurse who calls you the week day prior to your surgical procedure so we can update your list and provide you with updated instructions for the morning of your procedure. documented in this encounter [facility] 01-05-2024 Note [facility] nt 01-05-2024 Note [facility] 01-05-2024 Telephone encounter Note Received anti-coagulant instructions from Dr. Butler for surgery. Instructed patient to hold Eliquis for 3 days prior to surgery and ASA for 5 days prior and resume both medications after surgery. Patient voiced understanding. Jazlyn Bermudez LPN [facility] 01-05-2024 Miscellaneous Notes Received anti-coagulant instructions from Dr. Butler for surgery. Instructed patient to hold Eliquis for 3 days prior to surgery and ASA for 5 days prior and resume both medications after surgery. Patient voiced understanding. Jazlyn Bermudez LPN documented in this encounter [facility] 12-30-2023 Telephone encounter Note Refaxed Cardiac Clearance back to Dr. Butler with request for instructions on anticoagulants. Jazlyn Bermudez LPN [facility] 12-30-2023 Miscellaneous Notes Refaxed Cardiac Clearance back to Dr. Butler with request for instructions on anticoagulants. Jazlyn Bermudez LPN documented in this encounter [facility] 12-30-2023 Telephone encounter Note Scheduled surgery on 01/20/24, [facility]. Patient given instructions via phone call on 12/29/23. All questions answered. Medical/Cardiac/Endo clearances sent to care team. Surgery guide mailed to patient. Jazlyn Bermudez LPN [facility] 12-30-2023 Miscellaneous Notes Scheduled surgery on 01/20/24, [facility]. Patient given instructions via phone call on 12/29/23. All questions answered. Medical/Cardiac/Endo clearances sent to care team. Surgery guide mailed to patient. Jazlyn Bermudez LPN documented in this encounter [facility] 12-29-2023 Note [facility] 12-29-2023 History of Present illness Narrative 12/24/2023 PROMIS Global Health Physical Health Summary Physical health: Fair Everyday physical activity, ability: Moderately Fatigue: Moderate Pain level: 5 General health: Fair Social activities/roles, ability: Fair Physical Health T-Score 37.4 (Fair) Physical Health Percentile 10 PROMIS Global Health Mental Health Summary Quality of life: Fair Mental health (mood,thinking): Fair Social satisfaction: Fair Emotional problems (anxious,depressed): Sometimes Mental Health T-Score 36.3 (Fair) Mental Health Percentile 9 PHQ-9 Score: (Moderate Depression) PHQ-9 Self-Harm: NEURO-QOL Cognitive Function T-Score 35(Moderate Dysfunction) Percentiles provide an indication of how a patient's score ranks in relation to the [place] general population. > 31st percentile is within normal limits or better *< 31st percentile is at least SD worse than population, which may be clinically relevant < 16th percentile is at least 1 SD worse than population and warrants attention Physical Medicine and Rehabilitation F/u patient December 29, 2023 SUBJECTIVE HISTORY OF PRESENT ILLNESS: Elo Gray is a 67 year old woman for f/u back pain Folliowing with pain management, Dr. Heather Davis Prior 3 low back (unclear dates, completed in [place], fusions) and 1 cervical surgeries (2016 in [place]) Since last eval, MRI L spine completed showing: Anatomic variant: None. Localizer images: No additional findings. Alignment: Thoracolumbar dextroscoliosis with apex of the curvature at L3. Straightening of the normal lumbar lordosis. Severe disc space narrowing is noted throughout the visualized spine with sparing of the L2-3 level. Bone marrow signal/fracture: No evidence of pathologic marrow infiltration. Mild asymmetric wedge deformity of the T11 vertebral body with normal signal intensity characteristics of the marrow suggesting remote benign compression fracture. Apparent bony fusion of the L4 and L5 vertebral bodies. Laminectomy defect is noted at L4-S1 and a right inferior facetectomy at L4. There may be a partial left facetectomy at this same level.. Suspicion of right unilateral chronic pars fracture at L5-S1. Conus: Mild disc osteophyte complex and facet degenerative changes appear to cause mild cord compression at T10-11. Patchy hyperintensity is noted in the cord at this same level which may reflect myelomalacia or intramedullary plaque in view of the clinical history of multiple sclerosis but the cord compression would favor the former. Paraspinal soft tissues: Disruption of the dorsal soft tissue planes compatible with the prior surgery. Lower thoracic spine: Mild disc osteophyte complex and facet degenerative changes cause mild cord compression at T10-11. Facet degenerative changes at T11-12 and minimal disc bulging at T12-L1 only minimally impinges on the canal. Facet degenerative changes and rostrocaudal facet subluxation cause moderate left and severe right T10-11 and mild right T11-12 foraminal stenosis. L1-L2: Mild osteophyte formation and facet degenerative change cause mild canal and mild left foraminal stenosis.. L2-L3: Mild facet degenerative change. Canal and foramina widely patent. L3-L4: Mild disc osteophyte complex, facet degenerative changes and developmentally short pedicles cause severe canal stenosis, right subarticular recess stenosis, and mild bilateral foraminal stenosis. L4-L5: Prior laminectomy. Canal and right neural foramen are patent. Bony hypertrophic changes cause mild left foraminal stenosis. L5-S1: Prior laminectomy. The canal is widely patent. Bony hypertrophic changes only mildly impinge on the neural foramina.. Sacrum and iliac wings: The visualized sacrum and iliac wings are within normal limits. IMPRESSION: Postop changes following dorsal decompression procedure at L4-S1. Severe severe canal, right subarticular recess and mild bilateral bony foraminal stenosis at L3-4. Mild cord compression bilateral bony foraminal stenosis and suspicion of mild myelomalacia or intramedullary plaque at T10-11. Previous MRI C/T spine and brain 08/22/22: Multiple intracranial white matter lesions compatible with multiple sclerosis. No new T2 lesions and no new enhancing lesions. Mild parenchymal volume loss. Other Significant Intracranial Findings: None No evidence of demyelinating disease in the cervical and upper thoracic spinal cord. No new T2 intramedullary lesions and no new enhancing intramedullary lesions. Mild upper spinal cord volume loss for age. Other Significant Cervical Spine Findings: No significant cervical canal or foraminal stenosis. Stable postop changes of laminectomies at C4-C6 and posterior fusion. Cervical Anatomic Variant: None. Assume 7 cervical vertebrae with counting from the craniocervical junction. Alignment: Alignment is anatomic. Stable severe loss of disc height at C5-C6 and C6-C7 reflecting degeneration. Stable moderate loss of disc height at C7-T1 reflecting degeneration Again noted are postoperative changes of posterior spinal fixation rods and pedicle screws extending from C4 through C6. Stable laminectomies are identified at C4-C6. No pseudomeningocele. Craniocervical Junction: Craniocervical junction is normal. Cord Findings: The visualized cord is within normal limits of signal intensity and morphology. Cord T2 Plaque [place]: None New T2 Lesions: None Interval Cord Improvement: None New Cord Enhancing Lesions: None Cord Volume Loss: Mild Bone marrow signal/fracture: No evidence of pathologic marrow infiltration. No evidence of prior fracture. Cervical soft tissues: The paraspinal soft tissues are within normal limits. Cervical Canal and foramina: No significant canal or foraminal stenosis in the visualized spine. No clear evidence of demyelination on this study however there is mild chronic cord compression at T10-T11 due to combination of degenerative disc and facet disease. There is questionable increased signal within the cord at this level suggesting myelomalacia. No pathologic enhancement. Localizer images: Unremarkable. Alignment: Alignment is anatomic. Moderate loss of disc height at T5-T6 reflecting degeneration. Cord: There is mild chronic cord compression at T10-T11 due to the presence of a disc bulge and redundant ligamentum flavum (series 19 image 9 and series 21 image 9). There is questionable increased signal within the cord at this level raising the specter of myelomalacia. Bone marrow signal/fracture: Again noted are-type II endplate changes adjacent to T10-T11 and T11-T12 and T12-L1. No evidence of pathologic marrow infiltration. Chronic less than 30% anterior compression deformity of T11 without dorsal displacement the posterior wall. Thoracic paraspinal soft tissues: The paraspinal soft tissues are within normal limits. Canal and foramina: Mild canal stenosis due to bulges at T3-T4, T5-T6, T10-T11 and T11-T12. Since last eval, planning for NSGY with Dr. Mackenzie decompression and thoracic facetectomy 01/20/24- T10-11 laminectomy for decompression and a L3-[address] T/L spine since completed after the MRI She has since quit smoking- none for past 3 days as has to quit prior to surgery. Recent issues at house and having to clean more than more than normal and likely aggravating back. She feels safe at home- son had some recent legal issues- living at her house but she feels safe at home Her pain level is currently 7 on a scale of 0-10. The pain is located in the midline thoracic spine and midline lumbar (intermittent only with sitting in low back x 1 year, slowly worse over time) Going to PT and this is helping. Alleviating Factors: Ice heat Zanaflex hs helps with sleep, but cannot take during day Percocet - 5 doses a month Prn tylenol Prior Therapy: 11/11/22 - left genicular nerve blocks S/p RFA cervical x 2 (C7-T1) Fusion C3-6 in 2016 Lower back sx L4-S1 (discectomy) 1983 Left knee pain (s/p sx x 2; meniscal repair x 2) H/o b/l ankle fx about 4 years ago Smokes 3/4 ppd FUNCTIONAL STATUS: independent ACTIVE PROBLEM LIST Colitis Htn (Hypertension) Ms (Multiple Sclerosis) (Former[facility]) Ulcerative Colitis ([facility]) Diabetes Mellitus ([facility]) Paroxysmal A-Fib ([facility]) Tobacco Dependence Dyslipidemia Anxiety and Depression Cardiomyopathy ([facility]) Lv (Left Ventricular) Mural Thrombus Obesity, Class I, Bmi 30-34.9 Chronic Fatigue Kyphosis Myofascial Pain Syndrome PAST MEDICAL HISTORY No date: Anxiety and depression No date: Anxiety and depression No date: Atrial fibrillation ([facility]) No date: Cardiomyopathy ([facility]) No date: Cervical myelopathy ([facility]) No date: CHF (congestive heart failure) ([facility]) No date: Cognitive impairment No date: Colitis No date: COPD (chronic obstructive pulmonary disease) ([facility]) No date: Diabetes (HCC) No date: Dyslipidemia No date: GI bleed No date: History of loop recorder No date: Hypertension No date: IBS (irritable bowel syndrome) No date: Multiple sclerosis (HCC) 03/2016: Myocardial infarct, old No date: Obesity 1978: Pancreatitis No date: Renal insufficiency No date: RLS (restless legs syndrome) No date: Tobacco dependence No date: Urinary incontinence PAST SURGICAL HISTORY No date: BACK SURGERY HX Comment: lower x3 No date: CARPAL TUNNEL Comment: lt and rt 10/12/2014: COLONOSCOPY FLX DX W/COLLJ SPEC WHEN PFRMD Comment: Colonoscopy inpt H 02/28/2015: COLONOSCOPY FLX DX W/COLLJ SPEC WHEN PFRMD Comment: Colonoscopy No date: FINGER SURGERY HX Comment: thumb reconstructed No date: KNEE SURGERY HX Comment: lt x2 No date: PAST SURGICAL HISTORY OF Comment: partial amputation of big toe 01/25/2015: PAST SURGICAL HISTORY OF; Left Comment: great toe removal 08/2022: PAST SURGICAL HISTORY OF; Bilateral Comment: C3 and C6 nerve ablasions No date: TONSILLECTOMY HX No date: TUBAL LIGATION HX Social History Tobacco Use Smoking status: Every Day Current packs/day: 0.50 Average packs/day: 0.5 packs/day for 51.0 years (25.5 ttl pk-yrs) Types: Cigarettes Start date: 01/04/1973 Smokeless tobacco: Never Tobacco comments: Less than 10 Vaping Use Vaping status: Never Used Substance Use Topics Alcohol use: No Drug use: No FAMILY HISTORY Problem Relation Age of Onset Cancer Father lung Cancer Mother pancreatic Multiple Sclerosis No Family History ALLERGIES Allergen Reactions Aspirin Other: See Comments Indomethacin Other: See Comments Trazodone Intolerance Unable to wake up Imitrex [Sumatripta* Vomiting BP went down Abilify [Aripiprazo* Other: See Comments Excessive drooling Clindamycin Intolerance Darvocet A500 [Prop* Intolerance Iodinated Contrast * Other: See Comments Iodine Intolerance rash Metformin GI Upset Stomach spasms Propoxyphene Other: See Comments CURRENT MEDICATIONS: doxycycline hyclate (VIBRAMYCIN) 100 mg capsule Take 100 mg by mouth two times a day. starting 12/08/2023 oxyCODONE-acetaminophen (PERCOCET) 5-325 mg tablet 1/2-1 tab po daily prn pain - 18 tablets total Patient should start on December 16, 2023. tiZANidine (ZANAFLEX) 2 mg tablet Take 1 tablet by mouth two times a day as needed (for spasticity). lidocaine (LIDODERM) 5 % Apply 1 Patch as directed once daily. TO AFFECTED AREA. REMOVE AFTER 12 HOURS. QUEtiapine (SEROQUEL) 25 mg tablet Take 25 mg by mouth once daily. fluorometholone (FML LIQUID FILM) 0.1 % ophthalmic suspension Instill 1 drop in both eyes twice a day triamcinolone acetonide (KENALOG) 0.1 % cream Apply thin film on right thigh once or twice daily as needed. No longer than 2 weeks in a row. MOUNJARO 5 mg/0.5 mL pen injector INJECT 5MG SUBCUTANEOUSLY EVERY WEEK modafinil (PROVIGIL) 200 mg tablet Take 1 tablet by mouth once daily for 30 days. donepezil (ARICEPT) 10 mg tablet Take 2 tablets by mouth once daily. Blood-Glucose Meter,Continuous (FREESTYLE JANAY 3 READER) [facility] Dispense one reader. E11.9 Blood-Glucose Sensor (FREESTYLE JANAY 3 SENSOR) aubrey Change sensor every 14 days. USE FOR CONTINUOUS GLUCOSE MONITORING. Multiple insulin injections. E11.9 potassium chloride (KLOR-CON) 20 mEq packet Take 20 mEq by mouth once daily. PRN LE edema furosemide (LASIX) 20 mg tablet Take 1 tablet by mouth once daily. PRN LE Edema ofatumumab (KESIMPTA PEN) 20 mg/0.4 mL injection Inject 1 pen (0.4mL) under the skin once monthly flash glucose scanning reader (FREESTYLE JANAY 3 READER) Dispense one reader kit. USE FOR CONTINUOUS GLUCOSE MONITORING. Multiple insulin injections. E11.9 ramelteon (ROZEREM) 8 mg tablet Take 8 mg by mouth at bedtime as needed. doxycycline monohydrate (MONODOX) 100 mg capsule Take 1 capsule by mouth two times a day. When needed for a flare-up. mupirocin (BACTROBAN) 2 % ointment Apply to wound twice daily until healed. losartan (COZAAR) 50 mg tablet 50 mg twice daily. carvedilol (COREG) 12.5 mg tablet Take 12.5 mg by mouth twice daily with meals. insulin lispro (HUMALOG KWIKPEN INSULIN) 100 unit/mL Use with meals based on PRE meal blood sugar SLIDING SCALE as needed #1 (1 for 50 over 150) ~20 units daily FARXIGA 10 mg tablet Take 1 tablet by mouth every morning. Insulin Scarbro, Disposable, (BD ULTRAFINE III MINI PEN) 31 gauge x 3/16 Uses 4 per day with insulin injection. flash glucose sensor (FREESTYLE JANAY 2 SENSOR) kit Change sensor every 14 days. USE FOR CONTINUOUS GLUCOSE MONITORING. MULTIPLE INSULIN INJECTIONS. E11.9 cyanocobalamin (VITAMIN B-12) 1,000 mcg tab Take 1 tablet by mouth once daily. QUEtiapine (SEROQUEL) 100 mg tablet Take 100 mg by mouth daily at bedtime. ondansetron (ZOFRAN) 4 mg tablet Take 1 tablet by mouth every 8 hours as needed for nausea/vomiting. isosorbide mononitrate ER (IMDUR) 30 mg 24 hr tablet Take 1 tablet by mouth once daily. (Patient taking differently: Take 30 mg by mouth two times a day.) ferrous sulfate 325 mg (65 mg iron) tablet Take 1 tablet by mouth every 48 hours. rOPINIRole (REQUIP) 1 mg tablet Take 2 mg by mouth daily at bedtime. acetaminophen (TYLENOL) 500 mg tablet Take 500 mg by mouth every 6 hours as needed for pain. apixaban (ELIQUIS) 5 mg tab(s) Take 5 mg by mouth twice daily. albuterol HFA (PROVENTIL HFA, VENTOLIN HFA) 90 mcg/actuation inhaler Inhale 2 Puffs as instructed every 4 hours as needed for wheezing/shortness of breath. vibegron (GEMTESA) 75 mg tablet Take 75 mg by mouth once daily. nitroglycerin sublingual (NITROQUICK) 0.4 mg SL tablet Dissolve 0.4 mg under the tongue every 5 minutes as needed. pioglitazone (ACTOS) 30 mg tablet Take 30 mg by mouth once daily. pantoprazole DR (PROTONIX) 40 mg tablet Take 40 mg by mouth once daily. DULoxetine (CYMBALTA) 30 mg capsule Take 30 mg by mouth twice daily. dicyclomine (BENTYL) 20 mg tablet Take 20 mg by mouth twice daily as needed. PROLIA 60 mg/mL once every 6 months. atorvastatin (LIPITOR) 40 mg tablet Take 40 mg by mouth once daily. ascorbic acid, vitamin C, (VITAMIN C) 500 mg tablet Take 1 tablet by mouth once daily. sucralfate (CARAFATE) 1 gram tablet Take 1 tablet by mouth four times daily. hydrOXYzine HCl (ATARAX) 50 mg tablet Take 1 tablet by mouth three times daily as needed. (Patient taking differently: Take 50 mg by mouth two times a day.) Cholecalciferol, Vitamin D3, 5,000 unit cap Take 1 capsule by mouth once daily. rOPINIRole (REQUIP) 1 mg tablet Take 1 mg by mouth daily with lunch. aspirin, enteric coated (ASPIRIN, ENTERIC COATED) 81 mg EC tablet Take 81 mg by mouth once daily. [DISCONTINUED] teriflunomide (AUBAGIO) 14 mg TAKE 1 TABLET BY MOUTH ONCE DAILY. REVIEW OF SYSTEMS: GENERAL: Denies fever, chills malaise and weight loss. HEENT: No recent change in vision or hearing. CARDIOVASCULAR: Denies chest pain, history of A-fib, valvular disease, or pacemaker/ICD. RESPIRATORY: Denies SOB, sputum production, and hemoptysis. GI: Denies GI ulcers, inflammatory disease, or liver disease. : Denies change in frequency or urgency, kidney disease, and burning with urination. MUSCULOSKELETAL: Negative for joint pain or swelling, back pain or muscle pain. SKIN: Denies rash or itching. PSYCHOLOGICAL: Denies uncontrolled depression or anxiety. NEURO:see hpi and below ENDOCRINE: see below HEMATOLOGY/LYMPHOLOGY: Denies cancer, bleeding or clotting disorders, anemia,and DVT's. ALLERGIC/IMMUNOLOGICAL: Denies risks for infection, or recent MRSA infections. OBJECTIVE: PHYSICAL EXAM BP 128/61 (BP Site: Left Arm, BP Position: Sitting, BP Cuff Size: Large Adult) Pulse (!) 56 Resp 20 Ht 157.5 cm (5' 2) Wt 71.7 kg (158 lb) LMP 02/22/2000 (Approximate) SpO2 98% BMI 28.90 kg/m GENERAL APPEARANCE: age appropriate appearance, no apparent distress. NEURO PSYCH: Mood pleasant. Benign affect. MUSCULOSKELETAL VISUAL INSPECTION CERVICAL: WNL THORACIC: very kyphotic LUMBAR: reduced lordosis SPINE ROM: LUMBAR ROM: reduced ROM With mild Pain Wall walking with impaired balance if not using Rollator Data Review: [facility] records independently reviewed ASSESSMENT/PLAN 68 yo woman with PMH anxiety, depression, afib on eliquis, CHrEF 2/2 CM, colitis, COPD, DM, HPL, h/o GIB, HTN, h/o [place], obesity, pancreatitis, RLS, MS, cognitive impairments, cervical myelopathy, h/o cervical fusion C3C6 x 1 and lumbar fusion x 3 with evident fusion at L4L5 (apparent graft) SP tenderness at L3L4 and on closer review of lumbar flex ext views may have some degree of instability anterior disk , so now order for MRI L spine to r/o ligamentous instability. Also notable kyphosis with sig ddd in T spine but no notable compression fxs. The cervical spine issues more likely myofascial and scar sensitivity. MRI L spine completed with severe canal stenosis at L3L4 and foraminal stenosis at L4L5 and L5S1 but also with localizer views showing likely severe canal stenosis at T10/T11 and possible myelomalacia. There is evidence of compression fx at T11 MRI T spine later completed showing T spine degenerative changes, worst at T10-T11 with severe canal stenosis and focal cord compression. Upcoming plans for surgery T10-T11 lami and L3-L4 lami 01/20/24. Given spasticity, on zanaflex for now increased to 2mg qm and 2-4 mg pm- refilled. Lidocaine 5% TD refilled 1-2 patches F/u 3 months Sudden neuro decline - to ER Patient understands above plan; questions asked and answered. Medication options, including side effects, were discussed in detail. Education was given regarding signs and symptoms that would indicate a serious change in condition, and they were instructed to seek care immediately should these arise. Patient agrees to plan as noted above. These notes are used for the purpose of medical documentation and that for use for other medical providers. Jargon expressed here is intentioned for use under this context. Meka Webb MD. I spent a total of 30 minutes on the date of the service which included preparing to see the patient, [id number] patient care, completing clinical documentation, performing a medically appropriate examination, counseling and educating the patient/family/caregiver, and ordering medications, tests, or procedures. documented in this encounter [facility] 12-29-2023 Nurse Note Images from the original note were not included. Patient presents with chief complaints of back pain. stated she is scheduled for back surgery end of December Any new or significant change in pain? no Worst level of pain, 1-10, with 1 being mild discomfort is 10 PAIN INCREASED BY: OTHER trying to do stuff PAIN DECREASED BY: OTHER THERAPEUTIC INTERVENTIONS: PHYSICAL THERAPY LAND, INJECTIONS, and MEDICATION The following tests/records were reviewed:testing at [facility] Do you need any refills today from the doctor?no Courtney Schultz RN [facility]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 of complications related to fusion were discussed in detail. The risk of pseudoarthrosis was discussed. The risk of hardware failure including hardware pullout, mahendra breakage, screw breakage was discussed. The risk of screw loosening was discussed. The risk of need for further surgery for hardware failure, pseudoarthrosis was discussed. The risk of screw misplacement resulting in radiculopathy or neurological injury was discussed. The risk of need for further surgery to alter trajectory of hardware was discussed. The risk of needing to extend the fusion cephalad and/or caudad and the reasoning behind this was discussed. Adjacent segment breakdown that may or may not be symptomatic was discussed. The risk of instability status-post surgery was discussed, the risk of superficial and deep infection was discussed. No guarantees were offered nor implied regarding final outcome status post surgery or presence or absence of complication perioperatively. The risk of no improvement in symptoms despite technically adequate decompression of the compressed structures was discussed in extreme detail. The risk of need for further surgery for any reason was discussed. After a thorough discussion, the patient had many appropriate questions, all questions were answered to the patient's stated satisfaction. The patient voiced excellent understanding of both the reasoning for offering surgery, the potential complications regarding this particular surgery, and has elected to proceed. Discussed risks of smoking and strongly urged patient to quit as soon as possible. Unfortunately, due to to severity and progressive nature of her symptoms, we will have to proceed with surgery before the usual 6 weeks time for the cotinine test. Recommendations: As above Medicines: No Change Instructions: Continue present activity Physician [id number] time was 30 minutes with > 50% devoted to counseling or co-ordination of care. Approximately 10 minutes were spent reviewing medical records. No resident was available to participate in this visit. I saw and evaluated the patient. Medical Decision Making: Problems: Moderate: 2+ stable chronic illnesses Data: Unique source(s) for external note(s) reviewed: 2 Unique test result(s) reviewed: 2 Medical Decision Making Level: 4 - Moderate Chloe Craig MD 10:08 AM 12/18/2023 [facility] documented in this encounter [facility] 12-17-2023 Nurse Note 68 y/o female presents to office with concerns of thoracic pain that has been ongoing for years. She had MRI and Cts completed. This is not related to an accident or trauma. Takes Hydrocodone for pain. Is currently doing physical therapy and finding some relief. Also sees pain management. [facility] 12-17-2023 Nurse Note 68 y/o female presents to office with concerns of thoracic pain that has been ongoing for years. She had MRI and Cts completed. This is not related to an accident or trauma. Takes Hydrocodone for pain. Is currently doing physical therapy and finding some relief. Also sees pain management. documented in this encounter [facility] 12-08-2023 History of Present illness Narrative [facility] Pain Management Department Office Visit - Follow Up Evaluation Unaccompanied Room: 8 SUBJECTIVE: Pain Pain Level: 6 Pain Location: Neck Description: Aching, Dull, Radiating Intervention/Comfort measure: Medication, Cold, Pillow support 12/08/2023 12/08/2023 INTAKE PAIN ASSESSMENT Are you having pain associated with your visit today? Yes, Provider notified Yes, Provider notified Pain Scales Verbal (Numeric Rating or Visual Analog Scale) Pain Level 6 6 Pain Location Neck Neck Description Aching;Dull;Radiating Aching;Dull;Radiating Duration Units Minutes Years Frequency Intermittent Intermittent Intervention/Comfort measure Medication;Cold;Pillow support Medication;Cold;Pillow support Patient Entered Questionnaires PROMIS Score Percentiles 12/02/2022 03/01/2023 09/15/2023 PROMIS Global Health Scale Physical Health Percentile 10 10 10 Mental Health Percentile 34 53 19* 03/04/2023 08/26/2023 11/27/2023 Physical Health Physical Function Percentile 7 14 5 Pain Interference Percentile 16* 18* 5 Percentiles provide an indication of how the patient's score ranks in relation to the general population. Higher percentile rankings indicate better function/quality of life. 50th percentile is the average of the general population and indicates half of respondents had a worse score. > 31st percentile is within normal limits or better * < 31st percentile is at least SD worse than population, which may be clinically relevant < 16th percentile is at least 1 SD worse than population and warrants attention Descriptive Summary for PROMIS Physical Function T-score = 34 (Percentile 5) Much difficulty - Carry a laundry basket up a flight of stairs. Some difficulty - Walk at a normal speed. Unable - Walk more than a mile (1.6 km). Ms. Gray was last seen on 09/15/23 for myofascial pain and TPIs. The plan from that visit: PLAN: 1) s/p trigger point injections. 2) RTC 2-3 months for repeat if needed. Advised to make appointments further apart if on the same day for on-time arrival for appointments. 3) Percocet #18 today - to last at least three months. 4) No further increases at this point in script size 5) Ms. Gray thinks she may decrease # tabs once current stressors resolve - intention is to decrease and return to 15-16 tablets in 3 months. 6) Encouraged to stop smoking 7) Declined smoking cessation program 8) The treatment plan was discussed with the patient. Post procedure instructions were reviewed and the patient voiced understanding. Discussion was had re: medication and status update including opioids, smoking, dental care, her son, stress management, HgbA1c and healthier eating, thoracic imaging, MS, and overall health and well-being - this discussion was had for 16 minutes. Remainder of visit was spent discussing myofascial pain, non-pharmacologic and non-interventional approaches to improvement, and for TPIs. Interval history: Facial lesions - started Thursday Starting doxy 100 bid this afternoon No clear dx - possibly allergic rxn No TPIs today Last Percocet #12 Sep 2023 09/15/23 Still smoking ~ 1/2 ppd (one pack lasts 2 days) CT 12/04/23 Dr. Webb had her see Dr. Duarte Patient is seeing a partner of Dr. Duarte - partner is in [place] - 12/17/23 Postop pain per NSG/surgeon (not prn Percocet from me) Has to stop smoking 12 weeks b/f and 12 weeks after surgery Wants a second opinion (NSG) b/f considering surgery Bladder incontinence - worsened in last 2 months E. 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 Soria) No TPIs today given current rash and initiation of ABX today. Denies bowel incontinence, progressive neurologic deficits, fever/chills, or other concerning red flag symptoms or signs. Current Pain Management Treatment Pain medications (efficacy, side effects): Percocet prn ELIQUIS Procedures (%relief, duration): TPIs prn Active conservative therapy: currently Passive conservative therapy: None HISTORY FROM THE ELECTRONIC MEDICAL RECORD Allergies ALLERGIES Allergen Reactions Aspirin Other: See Comments Indomethacin Other: See Comments Trazodone Intolerance Unable to wake up Imitrex [Sumatripta* Vomiting BP went down Abilify [Aripiprazo* Other: See Comments Excessive drooling Clindamycin Intolerance Darvocet A500 [Prop* Intolerance Iodinated Contrast * Other: See Comments Iodine Intolerance rash Metformin GI Upset Stomach spasms Propoxyphene Other: See Comments Current Medications doxycycline hyclate (VIBRAMYCIN) 100 mg capsule Take 100 mg by mouth two times a day. starting 12/08/2023 tiZANidine (ZANAFLEX) 2 mg tablet Take 1 tablet by mouth two times a day as needed (for spasticity). lidocaine (LIDODERM) 5 % Apply 1 Patch as directed once daily. TO AFFECTED AREA. REMOVE AFTER 12 HOURS. QUEtiapine (SEROQUEL) 25 mg tablet Take 25 mg by mouth once daily. fluorometholone (FML LIQUID FILM) 0.1 % ophthalmic suspension Instill 1 drop in both eyes twice a day triamcinolone acetonide (KENALOG) 0.1 % cream Apply thin film on right thigh once or twice daily as needed. No longer than 2 weeks in a row. MOUNJARO 5 mg/0.5 mL pen injector INJECT 5MG SUBCUTANEOUSLY EVERY WEEK modafinil (PROVIGIL) 200 mg tablet Take 1 tablet by mouth once daily for 30 days. donepezil (ARICEPT) 10 mg tablet Take 2 tablets by mouth once daily. Blood-Glucose Meter,Continuous (FREESTYLE JANAY 3 READER) [facility] Dispense one reader. E11.9 Blood-Glucose Sensor (FREESTYLE JANAY 3 SENSOR) aubrey Change sensor every 14 days. USE FOR CONTINUOUS GLUCOSE MONITORING. Multiple insulin injections. E11.9 potassium chloride (KLOR-CON) 20 mEq packet Take 20 mEq by mouth once daily. PRN LE edema furosemide (LASIX) 20 mg tablet Take 1 tablet by mouth once daily. PRN LE Edema ofatumumab (KESIMPTA PEN) 20 mg/0.4 mL injection Inject 1 pen (0.4mL) under the skin once monthly flash glucose scanning reader (FREESTYLE JANAY 3 READER) Dispense one reader kit. USE FOR CONTINUOUS GLUCOSE MONITORING. Multiple insulin injections. E11.9 ramelteon (ROZEREM) 8 mg tablet Take 8 mg by mouth at bedtime as needed. doxycycline monohydrate (MONODOX) 100 mg capsule Take 1 capsule by mouth two times a day. When needed for a flare-up. mupirocin (BACTROBAN) 2 % ointment Apply to wound twice daily until healed. losartan (COZAAR) 50 mg tablet 50 mg twice daily. carvedilol (COREG) 12.5 mg tablet Take 12.5 mg by mouth twice daily with meals. insulin lispro (HUMALOG KWIKPEN INSULIN) 100 unit/mL Use with meals based on PRE meal blood sugar SLIDING SCALE as needed #1 (1 for 50 over 150) ~20 units daily FARXIGA 10 mg tablet Take 1 tablet by mouth every morning. Insulin Scarbro, Disposable, (BD ULTRAFINE III MINI PEN) 31 gauge x 3/16 Uses 4 per day with insulin injection. flash glucose sensor (FREESTYLE JANAY 2 SENSOR) kit Change sensor every 14 days. USE FOR CONTINUOUS GLUCOSE MONITORING. MULTIPLE INSULIN INJECTIONS. E11.9 QUEtiapine (SEROQUEL) 100 mg tablet Take 100 mg by mouth daily at bedtime. ondansetron (ZOFRAN) 4 mg tablet Take 1 tablet by mouth every 8 hours as needed for nausea/vomiting. isosorbide mononitrate ER (IMDUR) 30 mg 24 hr tablet Take 1 tablet by mouth once daily. (Patient taking differently: Take 30 mg by mouth two times a day.) ferrous sulfate 325 mg (65 mg iron) tablet Take 1 tablet by mouth every 48 hours. rOPINIRole (REQUIP) 1 mg tablet Take 2 mg by mouth daily at bedtime. acetaminophen (TYLENOL) 500 mg tablet Take 500 mg by mouth every 6 hours as needed for pain. apixaban (ELIQUIS) 5 mg tab(s) Take 5 mg by mouth twice daily. albuterol HFA (PROVENTIL HFA, VENTOLIN HFA) 90 mcg/actuation inhaler Inhale 2 Puffs as instructed every 4 hours as needed for wheezing/shortness of breath. vibegron (GEMTESA) 75 mg tablet Take 75 mg by mouth once daily. nitroglycerin sublingual (NITROQUICK) 0.4 mg SL tablet Dissolve 0.4 mg under the tongue every 5 minutes as needed. pioglitazone (ACTOS) 30 mg tablet Take 30 mg by mouth once daily. pantoprazole DR (PROTONIX) 40 mg tablet Take 40 mg by mouth once daily. DULoxetine (CYMBALTA) 30 mg capsule Take 30 mg by mouth twice daily. dicyclomine (BENTYL) 20 mg tablet Take 20 mg by mouth twice daily as needed. PROLIA 60 mg/mL once every 6 months. atorvastatin (LIPITOR) 40 mg tablet Take 40 mg by mouth once daily. ascorbic acid, vitamin C, (VITAMIN C) 500 mg tablet Take 1 tablet by mouth once daily. sucralfate (CARAFATE) 1 gram tablet Take 1 tablet by mouth four times daily. hydrOXYzine HCl (ATARAX) 50 mg tablet Take 1 tablet by mouth three times daily as needed. (Patient taking differently: Take 50 mg by mouth two times a day.) Cholecalciferol, Vitamin D3, 5,000 unit cap Take 1 capsule by mouth once daily. rOPINIRole (REQUIP) 1 mg tablet Take 1 mg by mouth daily with lunch. aspirin, enteric coated (ASPIRIN, ENTERIC COATED) 81 mg EC tablet Take 81 mg by mouth once daily. [START ON 12/16/2023] oxyCODONE-acetaminophen (PERCOCET) 5-325 mg tablet 1/2-1 tab po daily prn pain - 18 tablets total Patient should start on December 16, 2023. cyanocobalamin (VITAMIN B-12) 1,000 mcg tab Take 1 tablet by mouth once daily. [DISCONTINUED] teriflunomide (AUBAGIO) 14 mg TAKE 1 TABLET BY MOUTH ONCE DAILY. Past Medical History PAST MEDICAL HISTORY No date: Anxiety and depression No date: Anxiety and depression No date: Atrial fibrillation (HCC) No date: Cardiomyopathy (HCC) No date: Cervical myelopathy (HCC) No date: CHF (congestive heart failure) ([facility]) No date: Cognitive impairment No date: Colitis No date: COPD (chronic obstructive pulmonary disease) ([facility]) No date: Diabetes ([facility]) No date: Dyslipidemia No date: GI bleed No date: History of loop recorder No date: Hypertension No date: IBS (irritable bowel syndrome) No date: Multiple sclerosis ([facility]) 03/2016: Myocardial infarct, old No date: Obesity 1978: Pancreatitis No date: Renal insufficiency No date: RLS (restless legs syndrome) No date: Tobacco dependence No date: Urinary incontinence Past Surgical History PAST SURGICAL HISTORY No date: BACK SURGERY HX Comment: lower x3 No date: CARPAL TUNNEL Comment: lt and rt 10/12/2014: COLONOSCOPY FLX DX W/COLLJ SPEC WHEN PFRMD Comment: Colonoscopy [facility] 02/28/2015: COLONOSCOPY FLX DX W/COLLJ SPEC WHEN PFRMD Comment: Colonoscopy No date: FINGER SURGERY HX Comment: thumb reconstructed No date: KNEE SURGERY HX Comment: lt x2 No date: PAST SURGICAL HISTORY OF Comment: partial amputation of big toe 01/25/2015: PAST SURGICAL HISTORY OF; Left Comment: great toe removal 08/2022: PAST SURGICAL HISTORY OF; Bilateral Comment: C3 and C6 nerve ablasions No date: TONSILLECTOMY HX No date: TUBAL LIGATION HX Social History Alcohol Use: No Tobacco Use: .5 packs/day, for 30 years. Types: Cigarettes Drug Use: No Occupation: not working Family History FAMILY HISTORY Problem Relation Age of Onset Cancer Father lung Cancer Mother pancreatic Multiple Sclerosis No Family History OBJECTIVE BP 112/69 Pulse 59 Temp (Src) 96.5 (Temporal) Ht 5' 2 (1.58m) Wt 160 lb (72.6kg) SpO2 98% LMP 02/22/2000 BMI 29.26 kg/(m^2). General: well appearing, alert, and in no acute distress Psych: affect and mood appropriate Skin: facial lesions; not currently vesicular HEENT: normocephalic, atraumatic; edentulous Pulmonary: Unlabored breathing on room air. Symmetric chest expansion Kyphotic Neuro: AAOx3. Grossly intact Gait: Normal New or Pertinent Data: 09/16/2023 12:14 PM - Radiology, O[facility] In Impression IMPRESSION: Multilevel degenerative changes throughout the thoracic spine most pronounced at T10-T11 with posterior broad-based disc bulge and degenerative facet hypertrophy with associated ligamentum flavum thickening resulting in moderate to advanced canal stenosis with focal cord compression, similar to prior. There is also advanced degenerative foraminal stenosis bilaterally at this level. Recommend neurosurgical evaluation. Mild edema and/or myelomalacia within the cord at T10-T11. No intramedullary enhancement. Anatomic Thoracic/Lumbar Variant: None. L4-5 is considered the level of the iliac crest and assume there are 5 lumbar-type vertebrae. Painter Tumbling Barrel: STEPHANIE Transcribe Date/Time: Sep 16 2023 12:04P Dictated by : ZACH CALDWELL MD This examination was interpreted and the report reviewed and electronically signed by: ZACH CALDWELL MD on Sep 16 2023 12:12PM EST Results-Findings * * *Final Report* * * DATE OF EXAM: Sep 16 2023 11:00AM [facility] [id number] - MRI THORACIC SPINE WO/W IVCON / PROCEDURE REASON: multiple diagnoses * * * * Physician Interpretation * * * * EXAMINATION: MRI THORACIC SPINE WO/W IVCON CLINICAL HISTORY: Thoracic myelopathy History of multiple sclerosis (HCC) TECHNIQUE: Routine thoracic spine MR protocol with and without intravenous gadolinium. MQ: [id number] COMPARISON: MRI thoracic spine 08/22/2022 RESULT: Counting reference: Craniocervical and lumbosacral junctions. Localizer images: No additional findings. Alignment: Mild S-shaped curvature of the thoracic spine without substantial listhesis. Cord: Mild edema and/or myelomalacia within the cord at T10-T11. Bone marrow signal/fracture: No evidence of pathologic marrow infiltration. No evidence of prior fracture. Thoracic paraspinal soft tissues: The paraspinal soft tissues are within normal limits. Canal and foramina: Multilevel degenerative changes throughout the thoracic spine most pronounced at T10-T11 with posterior broad-based disc bulge and degenerative facet hypertrophy with associated ligamentum flavum thickening resulting in moderate to advanced canal stenosis with focal cord compression. Degenerative foraminal stenosis is most pronounced and advanced bilaterally at T10-T11 as well as moderate bilaterally at T8-T9 and T9-T10. 12/07/2023 8:33 AM - Radiology, O[facility] In Impression IMPRESSION: No acute thoracic or lumbar spine fracture or traumatic subluxation. Postsurgical changes in the lumbar spine with residual spondylosis worst at L3-L4 with moderate to severe canal narrowing. Thoracic spondylosis as described worst at T10-T11 with moderate canal narrowing. Anatomic Thoracic/Lumbar Variant: None. L4-5 is considered the level of the iliac crest and assume there are 5 lumbar-type vertebrae. Painter Tumbling Barrel: STEPHANIE Transcribe Date/Time: Dec 07 2023 8:15A Dictated by : MELVA GAUTHIER MD This examination was interpreted and the report reviewed and electronically signed by: MELVA GAUTHIER MD on Dec 07 2023 8:31AM EST Results-Findings * * *Final Report* * * DATE OF EXAM: Dec 04 2023 11:47AM [facility] [id number] - CT LUMBAR SPINE WO IVCON / PROCEDURE REASON: Spinal stenosis of lumbar region with neurogenic claudication * * * * Physician Interpretation * * * * EXAMINATION: CT LUMBAR SPINE WO IVCON, CT THORACIC SPINE WO IVCON CLINICAL HISTORY: Spinal stenosis of lumbar region with neurogenic claudication TECHNIQUE: Spiral, high resolution axial unenhanced images were obtained from the cervicothoracic junction to the sacrum with sagittal and coronal planar reconstructions. MQ: [id number] CT Radiation dose: Integrated Dose-Length Product (DLP) for this visit = 1710 mGy*cm. CT Dose Reduction Employed: Automated exposure control(AEC) and iterative recon COMPARISON: MR lumbar spine 07/27/2023, MR thoracic spine 09/16/2023 RESULT: THORACIC: Counting reference: Cervicothoracic and lumbosacral junctions. Assume first thoracic rib is the T1 level. For the purposes of this report, L4-5 is considered the level of the iliac crest and assume there are 5 lumbar-type vertebrae. Anatomic variant: None. Web Design Specialist (topogram) images: No significant findings. Alignment: Alignment is anatomic. Bone marrow / fracture: No acute thoracic spine fracture or traumatic subluxation. Mild chronic loss height of the right superior endplate of T7. Partially visualized postsurgical changes in the lower cervical spine. Thoracic soft tissues: The paraspinal soft tissues planes are maintained. Canal and foramina: No significant canal narrowing in the lower cervical spine status post dorsal decompression. Minimal disc osteophyte complexes at T1-T2 and T3-T4, and eccentric to the left at T5-T6 without significant canal or foraminal narrowing. T9-T10: There is disc degeneration with diffuse disc bulge and facet arthropathy causing mild canal narrowing and moderate bilateral foraminal stenosis. T10-T11: There is disc degeneration with diffuse disc bulge and facet arthropathy causing moderate canal narrowing, moderate severe left foraminal stenosis. T11-T12: Canal and foramina are patent. Facet arthropathy is noted. Otherwise, thoracic canal and foramina are patent. LUMBAR: Counting reference: Cervicothoracic and lumbosacral junctions. Assume first thoracic rib is the T1 level. For the purposes of this report, L4-5 is considered the level of the iliac crest and assume there are 5 lumbar-type vertebrae. Anatomic variant: None. Web Design Specialist (topogram) images: No significant findings. Alignment: Mild levocurvature centered at L4-5, and mild dextrocurvature at L1-L2. Minimal retrolisthesis of L4-5. Bone marrow / fracture: Status post laminectomies and right facetectomies at L4-5 and L5-S1. No acute lumbar spine fracture or traumatic subluxation. Bony fusion of the L4-L5 vertebral bodies. Paraspinal soft tissues: Postsurgical changes in dorsal paraspinal soft tissues. Atherosclerotic calcifications in the aorta and branch vessels. L1-L2: There is disc degeneration with diffuse disc bulge and facet arthropathy causing mild canal narrowing eccentric to the left and mild left foraminal stenosis. L2-L3: Canal and foramina are patent L3-L4: There is disc degeneration with diffuse disc bulge and facet arthropathy causing moderate to severe canal narrowing eccentric to the left, and moderate bilateral foraminal stenosis. L4-L5: No significant canal narrowing status post dorsal decompression. Disc osteophyte complex and facet arthropathy causes moderate right and severe left foraminal stenosis. L5-S1: No significant canal narrowing status post dorsal decompression. Facet arthropathy causes mild to moderate bilateral foraminal stenosis. Sacrum and iliac wings: The visualized sacrum and iliac wings are within normal limits. The presacral soft tissues are normal in appearance. ASSESSMENT Elo Gray is a 67 year old woman with hx that includes anxiety, depression, atrial fibrillation (Eliquis), cardiomyopathy, s/p lumbar decompression, CHF, cognitive impairment, COPD, diabetes, smoking, HLD, GIB, HTN, IBS, ulcerative colitis, pancreatitis (1977), RLS, and MS who presents in stable condition today with relatively new facial lesions of which Dermatology is aware. Starting doxycycline treatment today. Here for TPIs for myofascial pain. Given as yet unconfirmed dx of facial lesions and initiation today of antibiotic therapy, will hold off on TPIs and reschedule in several weeks. Ms. Gray agrees and understands. We discussed current status. She will c/w PT and f/u with other physicians. Ms. Gray is knows to seek urgent care (ED) should acute neurologic deficits develop. Q/C A/A and she will return when lesions have resolved. We reviewed prn opioid use for pain. Scripts are to last at least 3 months and are not intended for acute concerns. Script for #18 Percocet sent today not to start until 12/16/23. Script printed and provided (and e-scripted). (G35) MS (multiple sclerosis) (HCC) (primary encounter diagnosis) (M79.18) Myofascial pain syndrome (F17.200) Tobacco dependence (M54.2) Neck pain (M54.50) Lumbar pain (M79.18) Myofascial pain syndrome of lumbar spine (M79.18) Myofascial pain syndrome, cervical (G89.29) Other chronic pain (M54.2, G89.29) Neck pain, chronic (Z79.899) Encounter for long-term (current) use of medications PLAN : - C/w PT - No TPIs today - starting ABX tx - TPIs mid-December - Percocet #18 - to last at least 3 months - start 12/16/23 - Will f/u with Neuro, NSG, PMR as needed - ED if acute neurolgic deficits occur - Printed script and reviewed with patient I counseled the patient on the importance of health promotion and lifestyle modifications including tobacco cessation and PT/conditioning as tolerated. Medications may cause sedation and impairment of judgment. The patient is advised against driving or using heavy machinery if drowsy or impaired. The patient is also advised against using alcohol or other substances that may have an additive effect. Shared decision making utilized to continue current treatment plan and patient's questions were answered. The above plan and management options were discussed with patient. The patient is in agreement with the above and verbalized understanding. Heather Davis MD Medical Decision Making: Problems: Moderate: 2+ stable chronic illnesses Risk: Moderate: Drug management Medical Decision Making Level: 4 - Moderate 1. This office note may have been dictated. It also may contain minor typographic errors that escaped review 2. The nursing staff and advanced practice providers are a major part of YOUR TREATMENT TEAM and will be handling your phone calls and electronic inquiries, if any. Unless explicitly told otherwise at the time of your office visit, your study results and ensuing treatment plans will be discussed during your follow-up appointment. 3. If you do not have a follow-up appointment and wish to discuss any issues directly with me, please feel free to obtain one. Time allotted for procedure appointments will not allow for these follow-up discussions and the preoperative visit will not allow sufficient time for thorough discussion. 4. It is our practice not to fill disability, FCE, or any other insurance-related forms/documention. The office notes, study results, and other pertinent documentation generated as part of your evaluation will be available to you and to your Primary Care Physician (PCP). Use of this material to complete such forms will be at the discretion of your PCP/referring physician. 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 social security disablily documented in this encounter [facility] 12-04-2023 History of Present illness Narrative Radiology Service Progress Note PATIENT NAME: Elo Gray DATE OF SERVICE: December 04, 2023 TIME: 11:43 AM PATIENT IDENTITY VERIFICATION COMPLETED USING TWO (2) IDENTIFIERS: Name and Date of confirmed by patient verbally. FALL SCREENING: Has the patient had 2 falls in the last year or 1 fall with injury or currently using an Ambulatory Assistive Device (Walker, Cane, Wheelchair, Crutches, etc.)? Yes, Patient High Risk for Falls What interventions were put in place to prevent falls during this visit? Offered Assistance with Transfers/Clothing, Instructed Patient to Remain Seated (Not on Exam Table) Until Exam, and Increased Observations by Caregivers PATIENT GENDER DATA: Female. status: : No status: NO. 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 documented in this encounter [facility] 11-27-2023 Note HNO ID: [id number] Author: JARRED DUARTE MD Service: ? Author Type: Physician Type: Progress Notes Filed: 11/27/2023 16:05 Note Text: SPINE SURGERY NEW PATIENT This is an in-person visit. PCP: Melodie Marina CNP REFERRING PROVIDER: Meka Webb MD SUBJECTIVE HISTORY OF PRESENT ILLNESS: Elo Gray is a 67 year old female w/ hx of MS and smoking and DMII presenting alone. She has had mid back pain and has trouble sitting in a chair with a back. Some worsening balance and some weakness and heaviness in her legs when walking longer distances. She is ambulatory at baseline with a walker. Hx of C4-6 lami fusion and hx of L4-5 and L5-1 decompression in 2016. Denies upper extremity symptoms. On Eliquis, prior hx of [place]. Smokes half a pack a day of cigarettes. Pt does not work and is independent at home. Reports that her back pain is so painful that even touching it causes pain she has to sit in a well-padded chair due to this. CHIEF COMPLAINT: mid back pain PRECIPITATING EVENT: None DURATION OF SYMPTOMS: Greater Than 3 Months PAIN EVALUATION 11/27/2023 1019 11/27/2023 1452 Pain Level: 7 7 Pain Location: Back-Middle Back-Middle Description: Aching;Dull;Radiating;Tingling -- Duration Units: Minutes -- Frequency: Intermittent Continuous Intervention/Comfort measure: Medication;Cold;Heat;Pillow support;Positioning -- Pain Radiation: to the right and left foot/feet Aggravating Factors: Extension, Walking Alleviating Factors: leaning forward Pain Ratio: Pain in the back is greater than in the leg DERMATOMAL DISTRIBUTION: No dermatomal distribution AMBULATORY STATUS: Impaired Community Distances ANTIPLATELET OR ANTICOAGULATION STATUS: Yes Previous [place], eliquis and aspirin PREVIOUS CONSERVATIVE TREATMENTS: Dates of PT 04/18 to present PREVIOUS SPINAL SURGERY: L4-5 decompression, L5-S1 decompression, C4-6 lami fusion 2015 ACTIVE PROBLEM LIST Colitis Htn (Hypertension) Ms (Multiple Sclerosis) ([facility]) Ulcerative Colitis ([facility]) Diabetes Mellitus (Hcc) Paroxysmal A-Fib ([facility]) Tobacco Dependence Dyslipidemia Anxiety and Depression Cardiomyopathy ([facility]) Lv (Left Ventricular) Mural Thrombus Obesity, Class I, Bmi 30-34.9 Chronic Fatigue Kyphosis Myofascial Pain Syndrome PAST MEDICAL HISTORY No date: Anxiety and depression No date: Anxiety and depression No date: Atrial fibrillation ([facility]) No date: Cardiomyopathy ([facility]) No date: Cervical myelopathy ([facility]) No date: CHF (congestive heart failure) ([facility]) No date: Cognitive impairment No date: Colitis No date: COPD (chronic obstructive pulmonary disease) ([facility]) No date: Diabetes ([facility]) No date: Dyslipidemia No date: GI bleed No date: History of loop recorder No date: Hypertension No date: IBS (irritable bowel syndrome) No date: Multiple sclerosis (HCC) 03/2016: Myocardial infarct, old No date: Obesity 1978: Pancreatitis No date: Renal insufficiency No date: RLS (restless legs syndrome) No date: Tobacco dependence No date: Urinary incontinence PAST SURGICAL HISTORY No date: BACK SURGERY HX Comment: lower x3 No date: CARPAL TUNNEL Comment: lt and rt 10/12/2014: COLONOSCOPY FLX DX W/COLLJ SPEC WHEN PFRMD Comment: Colonoscopy inpt [facility] 02/28/2015: COLONOSCOPY FLX DX W/COLLJ SPEC WHEN PFRMD Comment: Colonoscopy No date: FINGER SURGERY HX Comment: thumb reconstructed No date: KNEE SURGERY HX Comment: lt x2 No date: PAST SURGICAL HISTORY OF Comment: partial amputation of big toe 01/25/2015: PAST SURGICAL HISTORY OF; Left Comment: great toe removal 08/2022: PAST SURGICAL HISTORY OF; Bilateral Comment: C3 and C6 nerve ablasions No date: TONSILLECTOMY HX No date: TUBAL LIGATION HX FAMILY HISTORY Problem Relation Age of Onset Cancer Father lung Cancer Mother pancreatic Multiple Sclerosis No Family History Social History Tobacco Use Smoking status: Every Day Packs/day: 0.50 Years: 30.00 Additional pack years: 0.00 Total pack years: 15.00 Types: Cigarettes Start date: 01/04/1973 Smokeless tobacco: Never Tobacco comments: Less than 10 Vaping Use Vaping Use: Never used Substance Use Topics Alcohol use: No Drug use: No ALLERGIES Allergen Reactions Aspirin Other: See Comments Indomethacin Other: See Comments Trazodone Intolerance Unable to wake up Imitrex [Sumatripta* Vomiting BP went down Abilify [Aripiprazo* Other: See Comments Excessive drooling Clindamycin Intolerance Darvocet A500 [Prop* Intolerance Iodinated Contrast * Other: See Comments Iodine Intolerance rash Metformin GI Upset Stomach spasms Propoxyphene Other: See Comments MEDICATIONS: tiZANidine (ZANAFLEX) 2 mg tablet Take 1 tablet by mouth two times a day as needed (for spasticity). lidocaine (LIDODERM) 5 % Apply 1 Patch as directed once daily. TO AFFECTED AREA. REMOVE AFTER 12 HOURS. QUEtiapine (SEROQUEL) 25 mg tablet Take 25 mg by mouth once eduardo (more content not included)... [facility] 11-27-2023 History of Present illness Narrative Images from the original note were not included. SPINE SURGERY NEW PATIENT This is an in-person visit. PCP: Melodie Marina CNP REFERRING PROVIDER: Meka Webb MD SUBJECTIVE HISTORY OF PRESENT ILLNESS: Elo Gray is a 67 year old female w/ hx of MS and smoking and DMII presenting alone. She has had mid back pain and has trouble sitting in a chair with a back. Some worsening balance and some weakness and heaviness in her legs when walking longer distances. She is ambulatory at baseline with a walker. Hx of C4-6 lami fusion and hx of L4-5 and L5-1 decompression in 2016. Denies upper extremity symptoms. On Eliquis, prior hx of [place]. Smokes half a pack a day of cigarettes. Pt does not work and is independent at home. Reports that her back pain is so painful that even touching it causes pain she has to sit in a well-padded chair due to this. CHIEF COMPLAINT: mid back pain PRECIPITATING EVENT: None DURATION OF SYMPTOMS: Greater Than 3 Months PAIN EVALUATION 11/27/2023 1019 11/27/2023 1452 Pain Level: 7 7 Pain Location: Back-Middle Back-Middle Description: Aching;Dull;Radiating;Tingling -- Duration Units: Minutes -- Frequency: Intermittent Continuous Intervention/Comfort measure: Medication;Cold;Heat;Pillow support;Positioning -- Pain Radiation: to the right and left foot/feet Aggravating Factors: Extension, Walking Alleviating Factors: leaning forward Pain Ratio: Pain in the back is greater than in the leg DERMATOMAL DISTRIBUTION: No dermatomal distribution AMBULATORY STATUS: Impaired Community Distances ANTIPLATELET OR ANTICOAGULATION STATUS: Yes Previous [place], eliquis and aspirin PREVIOUS CONSERVATIVE TREATMENTS: Dates of PT 04/18 to present PREVIOUS SPINAL SURGERY: L4-5 decompression, L5-S1 decompression, C4-6 lami fusion 2015 ACTIVE PROBLEM LIST Colitis Htn (Hypertension) Ms (Multiple Sclerosis) (Hcc) Ulcerative Colitis (Hcc) Diabetes Mellitus (Hcc) Paroxysmal A-Fib (Hcc) Tobacco Dependence Dyslipidemia Anxiety and Depression Cardiomyopathy (Hcc) Lv (Left Ventricular) Mural Thrombus Obesity, Class I, Bmi 30-34.9 Chronic Fatigue Kyphosis Myofascial Pain Syndrome PAST MEDICAL HISTORY No date: Anxiety and depression No date: Anxiety and depression No date: Atrial fibrillation (HCC) No date: Cardiomyopathy ([facility]) No date: Cervical myelopathy ([facility]) No date: CHF (congestive heart failure) ([facility]) No date: Cognitive impairment No date: Colitis No date: COPD (chronic obstructive pulmonary disease) ([facility]) No date: Diabetes ([facility]) No date: Dyslipidemia No date: GI bleed No date: History of loop recorder No date: Hypertension No date: IBS (irritable bowel syndrome) No date: Multiple sclerosis ([facility]) 03/2016: Myocardial infarct, old No date: Obesity 1978: Pancreatitis No date: Renal insufficiency No date: RLS (restless legs syndrome) No date: Tobacco dependence No date: Urinary incontinence PAST SURGICAL HISTORY No date: BACK SURGERY HX Comment: lower x3 No date: CARPAL TUNNEL Comment: lt and rt 10/12/2014: COLONOSCOPY FLX DX W/COLLJ SPEC WHEN PFRMD Comment: Colonoscopy inpt [facility] 02/28/2015: COLONOSCOPY FLX DX W/COLLJ SPEC WHEN PFRMD Comment: Colonoscopy No date: FINGER SURGERY HX Comment: thumb reconstructed No date: KNEE SURGERY HX Comment: lt x2 No date: PAST SURGICAL HISTORY OF Comment: partial amputation of big toe 01/25/2015: PAST SURGICAL HISTORY OF; Left Comment: great toe removal 08/2022: PAST SURGICAL HISTORY OF; Bilateral Comment: C3 and C6 nerve ablasions No date: TONSILLECTOMY HX No date: TUBAL LIGATION HX FAMILY HISTORY Problem Relation Age of Onset Cancer Father lung Cancer Mother pancreatic Multiple Sclerosis No Family History Social History Tobacco Use Smoking status: Every Day Packs/day: 0.50 Years: 30.00 Additional pack years: 0.00 Total pack years: 15.00 Types: Cigarettes Start date: 01/04/1973 Smokeless tobacco: Never Tobacco comments: Less than 10 Vaping Use Vaping Use: Never used Substance Use Topics Alcohol use: No Drug use: No ALLERGIES Allergen Reactions Aspirin Other: See Comments Indomethacin Other: See Comments Trazodone Intolerance Unable to wake up Imitrex [Sumatripta* Vomiting BP went down Abilify [Aripiprazo* Other: See Comments Excessive drooling Clindamycin Intolerance Darvocet A500 [Prop* Intolerance Iodinated Contrast * Other: See Comments Iodine Intolerance rash Metformin GI Upset Stomach spasms Propoxyphene Other: See Comments MEDICATIONS: tiZANidine (ZANAFLEX) 2 mg tablet Take 1 tablet by mouth two times a day as needed (for spasticity). lidocaine (LIDODERM) 5 % Apply 1 Patch as directed once daily. TO AFFECTED AREA. REMOVE AFTER 12 HOURS. QUEtiapine (SEROQUEL) 25 mg tablet Take 25 mg by mouth once daily. fluorometholone (FML LIQUID FILM) 0.1 % ophthalmic suspension Instill 1 drop in both eyes twice a day triamcinolone acetonide (KENALOG) 0.1 % cream Apply thin film on right thigh once or twice daily as needed. No longer than 2 weeks in a row. MOUNJARO 5 mg/0.5 mL pen injector INJECT 5MG SUBCUTANEOUSLY EVERY WEEK modafinil (PROVIGIL) 200 mg tablet Take 1 tablet by mouth once daily for 30 days. donepezil (ARICEPT) 10 mg tablet Take 2 tablets by mouth once daily. benzonatate (TESSALON PERLE) 100 mg capsule take 1 tab by mouth three times a day as needed for cough] Blood-Glucose Meter,Continuous (FREESTYLE JANAY 3 READER) [facility] Dispense one reader. E11.9 Blood-Glucose Sensor (FREESTYLE JANAY 3 SENSOR) aubrey Change sensor every 14 days. USE FOR CONTINUOUS GLUCOSE MONITORING. Multiple insulin injections. E11.9 potassium chloride (KLOR-CON) 20 mEq packet Take 20 mEq by mouth once daily. PRN LE edema furosemide (LASIX) 20 mg tablet Take 1 tablet by mouth once daily. PRN LE Edema ofatumumab (KESIMPTA PEN) 20 mg/0.4 mL injection Inject 1 pen (0.4mL) under the skin once monthly flash glucose scanning reader (FREESTYLE JANAY 3 READER) Dispense one reader kit. USE FOR CONTINUOUS GLUCOSE MONITORING. Multiple insulin injections. E11.9 ramelteon (ROZEREM) 8 mg tablet Take 8 mg by mouth at bedtime as needed. doxycycline monohydrate (MONODOX) 100 mg capsule Take 1 capsule by mouth two times a day. When needed for a flare-up. mupirocin (BACTROBAN) 2 % ointment Apply to wound twice daily until healed. losartan (COZAAR) 50 mg tablet 50 mg twice daily. carvedilol (COREG) 12.5 mg tablet Take 12.5 mg by mouth twice daily with meals. insulin lispro (HUMALOG KWIKPEN INSULIN) 100 unit/mL Use with meals based on PRE meal blood sugar SLIDING SCALE as needed #1 (1 for 50 over 150) ~20 units daily FARXIGA 10 mg tablet Take 1 tablet by mouth every morning. Insulin Scarbro, Disposable, (BD ULTRAFINE III MINI PEN) 31 gauge x 3/16 Uses 4 per day with insulin injection. flash glucose sensor (FREESTYLE JANAY 2 SENSOR) kit Change sensor every 14 days. USE FOR CONTINUOUS GLUCOSE MONITORING. MULTIPLE INSULIN INJECTIONS. E11.9 cyanocobalamin (VITAMIN B-12) 1,000 mcg tab Take 1 tablet by mouth once daily. QUEtiapine (SEROQUEL) 100 mg tablet Take 100 mg by mouth daily at bedtime. ondansetron (ZOFRAN) 4 mg tablet Take 1 tablet by mouth every 8 hours as needed for nausea/vomiting. isosorbide mononitrate ER (IMDUR) 30 mg 24 hr tablet Take 1 tablet by mouth once daily. (Patient taking differently: Take 30 mg by mouth two times a day.) ferrous sulfate 325 mg (65 mg iron) tablet Take 1 tablet by mouth every 48 hours. rOPINIRole (REQUIP) 1 mg tablet Take 2 mg by mouth daily at bedtime. acetaminophen (TYLENOL) 500 mg tablet Take 500 mg by mouth every 6 hours as needed for pain. apixaban (ELIQUIS) 5 mg tab(s) Take 5 mg by mouth twice daily. albuterol HFA (PROVENTIL HFA, VENTOLIN HFA) 90 mcg/actuation inhaler Inhale 2 Puffs as instructed every 4 hours as needed for wheezing/shortness of breath. vibegron (GEMTESA) 75 mg tablet Take 75 mg by mouth once daily. nitroglycerin sublingual (NITROQUICK) 0.4 mg SL tablet Dissolve 0.4 mg under the tongue every 5 minutes as needed. [DISCONTINUED] teriflunomide (AUBAGIO) 14 mg TAKE 1 TABLET BY MOUTH ONCE DAILY. pioglitazone (ACTOS) 30 mg tablet Take 30 mg by mouth once daily. pantoprazole DR (PROTONIX) 40 mg tablet Take 40 mg by mouth once daily. DULoxetine (CYMBALTA) 30 mg capsule Take 30 mg by mouth twice daily. dicyclomine (BENTYL) 20 mg tablet Take 20 mg by mouth twice daily as needed. PROLIA 60 mg/mL once every 6 months. atorvastatin (LIPITOR) 40 mg tablet Take 40 mg by mouth once daily. ascorbic acid, vitamin C, (VITAMIN C) 500 mg tablet Take 1 tablet by mouth once daily. sucralfate (CARAFATE) 1 gram tablet Take 1 tablet by mouth four times daily. hydrOXYzine HCl (ATARAX) 50 mg tablet Take 1 tablet by mouth three times daily as needed. (Patient taking differently: Take 50 mg by mouth two times a day.) Cholecalciferol, Vitamin D3, 5,000 unit cap Take 1 capsule by mouth once daily. rOPINIRole (REQUIP) 1 mg tablet Take 1 mg by mouth daily with lunch. aspirin, enteric coated (ASPIRIN, ENTERIC COATED) 81 mg EC tablet Take 81 mg by mouth once daily. REVIEW OF SYSTEMS: GENERAL: No weight loss or malaise MUSCULOSKELETAL: Negative for joint pain, swelling or muscle pain NEURO: No history of headaches, syncope, paralysis, seizures or tremors Patient Entered Questionnaires 01/15/2023 08/26/2023 11/27/2023 Spine Questions Pain Location: Upper back/torso Upper back/torso Upper back/torso Pain Duration: 1 to 5 years 1 to 5 years Pain over last 6 months: At least half the days in the past 6 months At least half the days in the past 6 months Symptoms from neck/cervical spine: Yes Yes No Employment Status: Disabled due to back pain, permanently or temporarily Disabled for reasons other than back pain Off work 1 month or more due to back/neck pain: Yes Applied for/receive disability/WC due to low back/neck pain Yes Involved in law suit/legal claim: No 01/15/2023 Spine Red Flags Any type of cancer: No Unexplained fever: No Bowel or bladder disfunction: No Unintentional weight loss: No Osteoporosis: Yes 01/15/2023 08/26/2023 Neck Questionnaires Benzel Modified DAYSI Score Incomplete 17 (Mild Myelopathy Symptoms) PROMIS Score Percentiles 03/04/2023 08/26/2023 11/27/2023 Physical Health Physical Function Percentile 7 14 5 Sleep Percentile 46 8 Fatigue Percentile 46 5 Pain Interference Percentile 16* 18* 5 01/08/2023 08/26/2023 11/27/2023 PROMIS SOCIAL ROLE SCORE Social Role Satisfaction Percentile 14 34 24* 12/02/2022 03/01/2023 09/15/2023 PROMIS Global Health Scale Physical Health Percentile 10 10 10 Mental Health Percentile 34 53 19* Percentiles provide an indication of how the patient's score ranks in relation to the general population. Higher percentile rankings indicate better function/quality of life. 50th percentile is the average of the general population and indicates half of respondents had a worse score. Descriptive Summary for PROMIS Physical Function T-score = 34 (Percentile 5) Much difficulty - Carry a laundry basket up a flight of stairs. Some difficulty - Walk at a normal speed. Unable - Walk more than a mile (1.6 km). Depression Screenin03/01/2023 09/24/2023 11/09/2023 PHQ-9 Score 4 9 7 03/01/2023 09/24/2023 11/09/2023 PHQ-9 Self-harm Question Question 9 Not at all Not at all Not at all PHQ-9 Self-Harm (Item 9) response options: 0 Not at all 1 Several days 2 More than half the days 3 Nearly every day PHQ-9 Levels: 0-4 No to mild depression 5-9 Mild depression 10-14 Moderate depression 15-19 Moderately severe depression 20-27 Severe depression OBJECTIVE: PHYSICAL EXAM Ht 157.5 cm (5' 2) Wt 72.6 kg (160 lb) LMP 02/22/2000 (Approximate) BMI 29.26 kg/m GENERAL APPEARANCE: Well nourished, well developed, and no apparent distress. NEURO PSYCH: Patient oriented to person, place, and time. Mood pleasant. Benign affect. MUSCULOSKELETAL VISUAL INSPECTION CERVICAL: WNL THORACIC: Hyperkyphosis LUMBAR: WNL MOTOR: Spine Exam Musculoskeletal: Motor: UE BICEPS TRICEPS DELTS Wrist Ext Wrist Flex Safety Specialist HI R 5/ 5/5 5/5 5/5 5/5 5/5 5/5 L 4/5 4/5 4/5 4/5 4/5 5/5 5/5 LE Hip Flex Knee Flex Knee Extend Plantarflex Dorsiflex EHL R 5/ 5/5 5/5 5/5 5/5 5/5 L 5/5 5/5 5/5 5/5 5/5 5/5 SENSORY: Normal sensory exam GAIT: Antalgic. REFLEXES: +2 to bilateral U/L extremities No clonus, no romano, down going babinski bilaterally NEURO TESTS: DATA REVIEW [facility] records independently reviewed MRI of thoracic spine reviewed demonstrating moderate stenosis at T11-12 due to ligamentous hypertrophy small anterior disc bulge MRI of lumbar spine with adjacent segment stenosis at L3-4 ASSESSMENT/PLAN (M48.062) Spinal stenosis of lumbar region with neurogenic claudication (primary encounter diagnosis) (M47.14) Thoracic myelopathy Elo Gray will continue with medical management of his/her condition. 1. Long discussion was had with Kendra regarding her clinical presentation and imaging. I am not fully convinced that her clinical presentation is consistent with thoracic myelopathy. I do believe she has a component of adjacent segment stenosis in her lumbar spine. She has no evidence of long track signs on exam. She does have multiple sclerosis she is very deconditioned she is an active smoker she is diabetic and she lives alone. She does desire treatment of her back pain closer to home. I can refer her to my partner who is at [facility] in [place]. She was in agreement with plan he will reach out for further discussion. I will order a CT scan of her thoracic and lumbar spine so that he can review with the patient. All questions were answered he was thankful for the encounter. 2. Follow up: Following above Imaging Ordered: Ct T and L spine The majority of the visit was spent counseling and/or coordinating care for the patient. The patient was counseled regarding thoracic stenosis . Total face to face time was 30 minutes. SIGNATURE: Jarred Duarte MD PATIENT NAME: Elo Gray DATE: November 27, 2023 TIME: 3:39 PM PAGER: documented in this encounter [facility] 11-25-2023 Telephone encounter Note Refilled. [facility] 11-25-2023 Miscellaneous Notes Refilled. Patient last seen on 09/15/23 Last refill on 09/15/23 Patient phones requesting refills as follows: Requested Prescriptions Pending Prescriptions Disp Refills tiZANidine (ZANAFLEX) 2 mg tablet 60 tablet 2 Sig: Take 1 tablet by mouth two times a day as needed (for spasticity). lidocaine (LIDODERM) 5 % 30 Patch 2 Sig: Apply 1 Patch as directed once daily. TO AFFECTED AREA. REMOVE AFTER 12 HOURS. Please review and advise. Leandra Maguire documented in this encounter [facility] 11-24-2023 Telephone encounter Note Patient last seen on 09/15/23 Last refill on 09/15/23 Patient phones requesting refills as follows: Requested Prescriptions Pending Prescriptions Disp Refills tiZANidine (ZANAFLEX) 2 mg tablet 60 tablet 2 Sig: Take 1 tablet by mouth two times a day as needed (for spasticity). lidocaine (LIDODERM) 5 % 30 Patch 2 Sig: Apply 1 Patch as directed once daily. TO AFFECTED AREA. REMOVE AFTER 12 HOURS. Please review and advise. Leandra Maguire [facility] 11-19-2023 Instructions Vaishnavi Soria MD - 11/19/2023 4:21 PM EDT SKIN CARE AFTER CRYOSURGERY The skin's response to cryosurgery (freezing) can be mild to more severe, depending on the depth of the freeze and the location of the area treated. You may have only mild redness and swelling with a little discomfort of significant discoloration and blistering with considerable discomfort. A burning sensation in the skin may last from several minutes to several hours after the procedure. Follow these instructions when caring for an area treated by cryosurgery: MINOR RESPONSE: 1. The area may sting or burn for a short time after treatment. 2. The treated area will be red in color at first then turn brown and flaky as it heals and the upper layer of skin sloughs off. 3. Gently cleanse the area with soap and water then use alcohol swab to remove extra bacteria. Pat dry and apply a thin film of Vaseline or Aquaphor ointment. Do this at least once a day to prevent infection. MAJOR RESPONSE: 1. Follow instructions as stated for minor response. 2. The area may sting and burn for several hours after treatment. 3. To relieve throbbing and pain, elevate the treatment area. 4. Acetaminophen (Tylenol) may be taken every 3 to 4 hours for discomfort. 5. A blister will form in the area of freezing. It may be filled with clear fluid or blood. This response is not unusual. 6. Do not break the blister unless it becomes uncomfortable. You may prick the blister with a sterile needle or pin to remove the fluid. Leave the skin intact. 7. Cleanse twice a day with soap and water and isopropyl alcohol and apply Vaseline to prevent infection and a thick scab from forming. 8. All treated areas usually heal within 3 to 4 weeks. If you have problems or questions, please call [facility] [place] [phone] documented in this encounter [facility] 11-19-2023 History of Present illness Narrative HPI: Patient returns for f/u of irritant dermatitis. Patient reports spots from last time are healing, Currently using mupirocin (BACTROBAN) 2 % ointment, triamcinolone acetonide (KENALOG) 0.1 % cream Last visit -Intralesional kenalog 5mg/ml x 3 lesions x 0.5 ml. Mainly trouble areas or on the chin EXAM: Alert & oriented in no acute distress. Mid Chin, Right Malar Cheek Fewl scattered erythematous excoriated nodules. Mid Chin, Right Forearm - Anterior Stuck-on flat-topped rough papule(s) with erythema IMPRESSION/PLAN: Prurigo nodularis Right Malar Cheek; Mid Chin Controlled currently. Patient declined intralesional kenalog. Continue to monitor areas. Inflamed seborrheic keratosis (2) Right Forearm - Anterior; Mid Chin Advised treatment to lesion due to pain from inflammation in addition to evaluation and management of other lesions on body. CRYOTHERAPY SKIN LESION - Mid Chin, Right Forearm - Anterior Complexity: simple Destruction method: cryotherapy Destruction method comment: X2 Informed consent: discussed and consent obtained Informed consent comment: Risk of hypopigmentation and recurrence of lesion(s) discussed. Timeout: patient name, date of , surgical site, and procedure verified Lesion destroyed using liquid nitrogen: Yes Region frozen until ice ball extended beyond lesion: Yes Outcome: patient tolerated procedure well with no complications Post-procedure details: wound care instructions given -F/u visit: 3 month The documentation for this note was completed by FRANCHESKA Mclaughlin acting as scribe for Vaishnavi Soria MD. November 19, 2023 3:53 PM. The HPI, PMH, EXAM, Findings/plan that were documented by my power plant assistant, who was scribing during the encounter, were confirmed by me and I agree with the content of these sections. I have made any required additions or deletions to the HPI/PFSH/exam/findings/plan as needed. The physical exam and any procedures were performed by me, unless otherwise noted. Vaishnavi Soria MD Medical Decision Making: Problems: Low: 2+ self-limited or minor problems Risk: Low: Low risk from testing/treatment Medical Decision Making Level: 3 - Low documented in this encounter [facility] 11-19-2023 Note [facility] 11-10-2023 History of Present illness Narrative Labs drawn documented in this encounter [facility] 11-10-2023 History of Present illness Narrative Images from the original note were not included. [facility] FOR MULTIPLE SCLEROSIS FOLLOWUP/ESTABLISHED PATIENT VISIT PRINCIPAL NEUROLOGIC DIAGNOSIS: Multiple sclerosis DISEASE SUMMARY Date of onset: 12/1998 Date of diagnosis of MS: 1998 Disease course at onset: Progressive with relapses Current disease course: Progressive with relapses Previous disease therapies: Glatiramer acetate 2002, [id number], [id number] Fingolimod 07/2014-04/2016 (switched because of heart issues - had heart attack) Teriflunomide 7 mg 04/2016-10/2016 Prednisone x 10 days 03/2017 IVMP 01/25/17 x 1 dose Teriflunomide 14 mg daily Current disease therapy: Kesimpta (started 01/2022) Most recent MRI brain: 07/27/23 Most recent MRI cervical spine: 08/22/22 Most recent MRI thoracic spine: 08/22/22 CSF: 1998 JCV serology result and date: NA CHIEF COMPLAINT: Follow-up on MS disease modifying therapy INTERVAL HISTORY: Usual treating team: Pako/Carlos The patient is accompanied by self. The patient was last seen 09/24/23, currently taking Not on DMT. Since the patient's last visit the patient reports overall feeling stable. Going to see neurosurgery November 26 - having back pain and legs don't want to cooperate when the back is in more pain Went to [facility] - in beginning stages macular degeneration Went to dermatology for follow-up on 10/13 - they froze a few spots on face - still has spots that come and go - has a follow-up on on 11/18 again 28 of October, tree fell on back of trailer - it needs repaired still Dealing with second UTI since September (increased frequency and urgency) - on Abx - second round - treated for 10 days first round, then next course she thinks 10 days In PT currently SUBJECTIVE & REVIEW OF SYSTEMS: Neuro-QoL Functions (higher=better functioning) Flowsheet [facility] Office Visit from 11/10/2023 in [facility] Office Visit from 09/24/2023 in [facility] Office Visit from 01/29/2023 in [facility] Upper Extremity Domain T Score 38 38 36.77 Lower Extremity Domain T Score 37 35 41.61 Cognitive Function Domain T Score 35 32 36.84 Positive Affect Well Being T Score -- -- -- Ability To Participate In Social Roles T Score 42 44 38.47 Satisfaction With Social Roles T Score 42 42 41.97 Neuro-QoL Symptoms (higher=worse symptoms) Flowsheet [facility] Office Visit from 11/10/2023 in [facility] Office Visit from 09/24/2023 in [facility] Office Visit from 01/29/2023 in [facility] Sleep Domain T Score 69 71 62 Fatigue Domain T Score 56 60 52.38 Anxiety Domain T Score 52 52 50.02 Depression Domain T Score 51 52 48.65 Stigma Domain T Score 63 60 58.51 Emotional Behavior Dyscontrol T Score -- -- -- *NeuroQoL is a multi-domain patient-reported quality of life questionnaire. PHQ-9 Flowsheet Row Office Visit from 11/10/2023 in [facility] Office Visit from 09/24/2023 in [facility] PHQ-9 Score 7 9 *PHQ-9 is a questionnaire for depressive symptoms, with scores 0-4 indicating none, 5-9 mild, 10-14 moderate, 15-19 moderately severe, and 20-27 severe symptoms. PROMIS-10 Flowsheet Row Office Visit from 09/15/2023 in Rehab Medicine Office Visit from 03/06/2023 in Neurology Global Physical Health T Score 37.4 37.4 Global Mental Health T Score 41.1 50.8 0-10 Standard Pain Scale 3 3 *PROMIS-10 is a patient-reported quality of life measure, typically reported as physical and mental domains. Here scores are expressed as percentiles, where the lowest possible score is one, the highest possible score is 99, and 50 is average. Refer to patient-entered data. Mood: PHQ9 responses reviewed and appear below - psychiatry increased Seroquel to 125 mg since last visit Pain related to today's visit:reviewed on nursing intake documentation Fatigue: Worse - on Provigil with benefit PAST HISTORY was reviewed and updated: PAST MEDICAL HISTORY Diagnosis Date Anxiety and depression Anxiety and depression Atrial fibrillation (HCC) Cardiomyopathy (HCC) Cervical myelopathy (HCC) CHF (congestive heart failure) (HCC) Cognitive impairment Colitis COPD (chronic obstructive pulmonary disease) (HCC) Diabetes (HCC) Dyslipidemia GI bleed History of loop recorder Hypertension IBS (irritable bowel syndrome) Multiple sclerosis (HCC) Myocardial infarct, old 03/2016 Obesity Pancreatitis 1978 Renal insufficiency RLS (restless legs syndrome) Tobacco dependence Urinary incontinence PAST SURGICAL HISTORY Procedure Laterality Date BACK SURGERY HX lower x3 CARPAL TUNNEL lt and rt COLONOSCOPY FLX DX W/COLLJ SPEC WHEN PFRMD 10/12/2014 Colonoscopy inpt [facility] COLONOSCOPY FLX DX W/COLLJ SPEC WHEN PFRMD 02/28/2015 Colonoscopy FINGER SURGERY HX thumb reconstructed KNEE SURGERY HX lt x2 PAST SURGICAL HISTORY OF partial amputation of big toe PAST SURGICAL HISTORY OF Left 01/25/2015 great toe removal PAST SURGICAL HISTORY OF Bilateral 08/2022 C3 and C6 nerve ablasions TONSILLECTOMY HX TUBAL LIGATION HX MEDICATIONS and ALLERGIES were reviewed and updated. SOCIAL HISTORY was reviewed and updated: Social History Tobacco Use Smoking status: Every Day Packs/day: 0.50 Years: 30.00 Additional pack years: 0.00 Total pack years: 15.00 Types: Cigarettes Start date: 01/04/1973 Smokeless tobacco: Never Tobacco comments: Less than 10 Living situation: Living at home with assistance Employment Status / Disability: Disabled, permanently or temporarily OBJECTIVE: VITALS & WELLNESS: BP 103/63 Pulse (!) 58 Ht 157.5 cm (5' 2) Wt 72.1 kg (159 lb) LMP 02/22/2000 (Approximate) BMI 29.08 kg/m PDDS: 6-Bilateral Support MSPT Results Flowsheet Row Office Visit from 11/10/2023 in [facility] Office Visit from 09/24/2023 in [facility] Office Visit from 01/29/2023 in [facility] Processing Speed Total Number Correct 33 41 34 Processing Speed Z score -- -- -- Dominant hand -- -- -- MDT Left Hand Time 47.9 52.61 34.09 MDT Right Hand Time 43.74 40.43 32.62 Walking Speed Test (25 feet) 12.66 10.86 12.8 EXAM: General Appearance: well appearing, in no acute distress Mental status evaluation during the interview and examination showed Reported difficulties: memory word finding concentration / attention Affect: Normal Extraocular movements: full, without SAMINA Speech: normal Muscle strength (#/5): Right Left Upper Extremity: Deltoids 5 5 Biceps 5 5 Triceps 5 5 Safety Specialist 5 5 Dorsal interossei 4+ 4+ Lower extremity: Iliopsoas 4+ 4+ Quadriceps 5 5 Hamstrings 5 5 Tibialis anterior 5 5 Gastrocnemius 5 5 Coordination: Upper extremity dexterity and rapid movements: Impaired left Finger-nose: no dysmetria; coordination intact Standing balance: Impaired Standard gait: wide-based, unsteady. Assistive device: rollator RESULTS: Monitoring labs: CBC + Diff Component Value Date WBC 8.79 09/24/2023 HB 15.2 09/24/2023 HCT 46.0 09/24/2023 PLT 241 09/24/2023 ABSLYMPH 1.40 09/24/2023 CMP Component Value Date AST 14 11/10/2023 GLUC 142 (H) 11/10/2023 BUN 31 (H) 11/10/2023 CREAT 0.79 11/10/2023 NA 136 11/10/2023 K 4.7 11/10/2023 CHLOR 104 11/10/2023 ALT 14 11/10/2023 No results found for: JCVAB, JCVIND Discrete MRI Results Component Value Date Brain New T2 Lesions None Site 07/27/2023 Brain Enhancing Lesions Not applicable 07/27/2023 Cervical Spine New T2 Lesions None 08/22/2022 Cervical Spine New T2 Lesions None 08/22/2022 Cervical spine enhancing lesions None 08/22/2022 Cervical spine enhancing lesions None 08/22/2022 ASSESSMENT/PLAN: Elo Gray is a 67 year old female with Multiple Sclerosis. Patient is not on DMT currently - last Kesimpta dose about 3.5 months ago. Will check labs today including CD19 count to see if B cells still depleted. Patient reports facial rash/lesions still cyclically present (improve/resolve as antibiotics and reoccur about 1 week after stopping). She saw dermatology and is scheduled to see again next week. Reports 2 UTI recently - this could be contributing to worsening neurological symptoms. Discussed importance of treating UTI and managing stress. Continues to follow with psychiatry and psychology. She is seeing neurosurgery in 3 weeks for evaluation of thoracic myelopathy. Patient Health Education Discussed at Visit: Aerobic exercise, Emotional Health/Wellness, Risks and Common side effects of MS medications, and Stretching Follow-up: In 3 months at [place] or Virtual Visit with [facility] or sooner if needed I spent a total of 40 minutes on the date of the service which included preparing to see the patient, [id number] patient care, completing clinical documentation, obtaining and/or reviewing separately obtained history, performing a medically appropriate examination, counseling and educating the patient/family/caregiver, ordering medications, tests, or procedures, and communicating results to the patient/family/caregiver. Bill Woods PA-C The chart was reviewed for possible participation in the following studies:None documented in this encounter [facility] 10-27-2023 Miscellaneous Notes addressed in another encounter. Courtney Schultz RN documented in this encounter [facility] 10-27-2023 Telephone encounter Note addressed in another encounter. Courtney Schultz RN [facility] Work Phone: 10-27-2023 Telephone encounter Note Images from the original note were not included. [facility] Work Phone: 10-27-2023 Miscellaneous Notes Images from the original note were not included. VEL: 09/15/23 ASSESSMENT/PLAN 67 yo woman with PMH anxiety, depression, afib on eliquis, CHrEF 2/2 CM, colitis, COPD, DM, HPL, h/o GIB, HTN, h/o [place], obesity, pancreatitis, RLS, MS, cognitive impairments, cervical myelopathy, h/o cervical fusion C3C6 x 1 and lumbar fusion x 3 with evident fusion at L4L5 (apparent graft) SP tenderness at L3L4 and on closer review of lumbar flex ext views may have some degree of instability anterior disk , so now order for MRI L spine to r/o ligamentous instability. Also notable kyphosis with sig ddd in T spine but no notable compression fxs. The cervical spine issues more likely myofascial and scar sensitivity. MRI L spine completed with severe canal stenosis at L3L4 and foraminal stenosis at L4L5 and L5S1 but also with localizer views showing likely severe canal stenosis at T10/T11 and possible myelomalacia. There is evidence of compression fx at T11 Next for thoracic xr then for MRI T spine wwo KASEY and adding contrast with MS hx- she has iodine allergy but not to corina and had previous MRI orbit w contrast wo issue Spasticity noted and d/w her options- she opted for low dose zanaflex for now. Lidocaine 5% TD refilled F/u after MRI Sudden neuro decline - to ER documented in this encounter [facility] 10-15-2023 Telephone encounter Note VEL: 09/15/23 ASSESSMENT/PLAN 67 yo woman with PMH anxiety, depression, afib on eliquis, CHrEF 2/2 CM, colitis, COPD, DM, HPL, h/o GIB, HTN, h/o [place], obesity, pancreatitis, RLS, MS, cognitive impairments, cervical myelopathy, h/o cervical fusion C3C6 x 1 and lumbar fusion x 3 with evident fusion at L4L5 (apparent graft) SP tenderness at L3L4 and on closer review of lumbar flex ext views may have some degree of instability anterior disk , so now order for MRI L spine to r/o ligamentous instability. Also notable kyphosis with sig ddd in T spine but no notable compression fxs. The cervical spine issues more likely myofascial and scar sensitivity. MRI L spine completed with severe canal stenosis at L3L4 and foraminal stenosis at L4L5 and L5S1 but also with localizer views showing likely severe canal stenosis at T10/T11 and possible myelomalacia. There is evidence of compression fx at T11 Next for thoracic xr then for MRI T spine wwo KASEY and adding contrast with MS hx- she has iodine allergy but not to corina and had previous MRI orbit w contrast wo issue Spasticity noted and d/w her options- she opted for low dose zanaflex for now. Lidocaine 5% TD refilled F/u after MRI Sudden neuro decline - to ER [facility] 10-14-2023 Instructions Vaishnavi Soria MD - 10/14/2023 10:19 AM EDT SKIN CARE AFTER CRYOSURGERY The skin's response to cryosurgery (freezing) can be mild to more severe, depending on the depth of the freeze and the location of the area treated. You may have only mild redness and swelling with a little discomfort of significant discoloration and blistering with considerable discomfort. A burning sensation in the skin may last from several minutes to several hours after the procedure. Follow these instructions when caring for an area treated by cryosurgery: MINOR RESPONSE: 1. The area may sting or burn for a short time after treatment. 2. The treated area will be red in color at first then turn brown and flaky as it heals and the upper layer of skin sloughs off. 3. Gently cleanse the area with soap and water then use alcohol swab to remove extra bacteria. Pat dry and apply a thin film of Vaseline or Aquaphor ointment. Do this at least once a day to prevent infection. MAJOR RESPONSE: 1. Follow instructions as stated for minor response. 2. The area may sting and burn for several hours after treatment. 3. To relieve throbbing and pain, elevate the treatment area. 4. Acetaminophen (Tylenol) may be taken every 3 to 4 hours for discomfort. 5. A blister will form in the area of freezing. It may be filled with clear fluid or blood. This response is not unusual. 6. Do not break the blister unless it becomes uncomfortable. You may prick the blister with a sterile needle or pin to remove the fluid. Leave the skin intact. 7. Cleanse twice a day with soap and water and isopropyl alcohol and apply Vaseline to prevent infection and a thick scab from forming. 8. All treated areas usually heal within 3 to 4 weeks. If you have problems or questions, please call [facility] [place] [phone] documented in this encounter [facility] 10-14-2023 History of Present illness Narrative Patient returns for follow up folliculitis. Current Treatment: doxycycline monohydrate (MONODOX) 100 mg capsule Take 1 capsule by mouth two times a day for 7 days. mupirocin (BACTROBAN) 2 % ointment Apply to wound twice daily until healed.. Kesimpta was discontinued in July - slightly worse since discontinuing Last visit was 02/18/2023 NEW COMPLAINTS: Location Right posterior lateral upper leg Present x 1 week Itches: Yes and also lorenzana Has tried mupirocin MEDICAL HX: New compression fracture on back PHYSICAL EXAM: The patient is pleasant, oriented x 3, in no acute distress. Right Thigh - lateral Patch of erythematous papules Left Chin, Left Malar Cheek, Mid Chin, Right Chin Several scattered erythematous excoriated nodules. Right Forehead, Right Upper Cutaneous Lip Stuck-on flat-topped rough papule(s) with erythema IMPRESSION/PLAN: Irritant dermatitis Right Thigh - lateral Begin Mid potent steroid as directed triamcinolone acetonide (KENALOG) 0.1 % cream - Right Thigh - lateral Apply thin film on right thigh once or twice daily as needed. No longer than 2 weeks in a row. Prurigo nodularis Left Malar Cheek; Left Chin; Right Chin; Mid Chin Intralesional kenalog 5mg/ml x 3 lesions x 0.5 ml. triamcinolone acetonide 5 mg injection (KeNALog 10) - Left Chin, Left Malar Cheek, Mid Chin, Right Chin Inflamed seborrheic keratosis (2) Right Upper Cutaneous Lip; Right Forehead Advised treatment to lesion due to pain from inflammation in addition to evaluation and management of other lesions on body. CRYOTHERAPY SKIN LESION - Right Forehead, Right Upper Cutaneous Lip Complexity: simple Destruction method: cryotherapy Destruction method comment: X2 Informed consent: discussed and consent obtained Informed consent comment: Risk of hypopigmentation and recurrence of lesion(s) discussed. Timeout: patient name, date of , surgical site, and procedure verified Lesion destroyed using liquid nitrogen: Yes Region frozen until ice ball extended beyond lesion: Yes Outcome: patient tolerated procedure well with no complications Post-procedure details: wound care instructions given FOLLOW UP: 1 month(s). The documentation for this note was completed by Stephanie You RN/ Elo German LPN acting as scribe for Vaishnavi Soria MD. October 14, 2023 10:02 AM. The HPI, PMH, EXAM, Findings/plan that were documented by my power plant assistant, who was scribing during the encounter, were confirmed by me and I agree with the content of these sections. I have made any required additions or deletions to the HPI/PFSH/exam/findings/plan as needed. The physical exam and any procedures were performed by me, unless otherwise noted. Vaishnavi Soria MD Medical Decision Making: Problems: Low: 2+ self-limited or minor problems Risk: Moderate: Drug management Medical Decision Making Level: 3 - Low documented in this encounter [facility] 10-09-2023 Telephone encounter Note Received Dilated eye exam records from [facility]. Sent for scanning. [facility] 10-09-2023 Miscellaneous Notes Received Dilated eye exam records from [facility]. Sent for scanning. documented in this encounter [facility] 10-07-2023 Telephone encounter Note Requester: Patient Patients last Endocrinology visit occurred 08/19/2023. Follow-up evaluation has been established Upcoming Endocrinology Appointments - Next 365 Days Visit Type Date Time Department EST RICHARD PATIENT 02/24/2024 9:15 AM ENDO [facility] . Requested Prescriptions Pending Prescriptions Disp Refills MOUNJARO 5 mg/0.5 mL pen injector [Pharmacy Med Name: Mounjaro 5 mg/0.5 mL subcutaneous pen injector] 2 mL 11 Sig: INJECT 5MG SUBCUTANEOUSLY EVERY WEEK Patient needs scheduled appointment No Jayleen Roche MA [facility] 10-07-2023 Miscellaneous Notes Requester: Patient Patients last Endocrinology visit occurred 08/19/2023. Follow-up evaluation has been established Upcoming Endocrinology Appointments - Next 365 Days Visit Type Date Time Department EST RICHARD PATIENT 02/24/2024 9:15 AM ENDO [facility] [place] . Requested Prescriptions Pending Prescriptions Disp Refills MOUNJARO 5 mg/0.5 mL pen injector [Pharmacy Med Name: Mounjaro 5 mg/0.5 mL subcutaneous pen injector] 2 mL 11 Sig: INJECT 5MG SUBCUTANEOUSLY EVERY WEEK Patient needs scheduled appointment No Jayleen Roche MA Prescription Refill Information The patient has been identified by name and date of : Yes Caregiver verified no other encounters exist for this prescription request: Yes Caregiver confirmed with patient/requestor that no other refills are due, in the near future, with this provider at this time: Yes The last office visit in the department: 08/19/23 Does the patient have a future office visit with this provider/department: Yes Requested Prescriptions Pending Prescriptions Disp Refills MOUNJARO 5 mg/0.5 mL pen injector [Pharmacy Med Name: Mounjaro 5 mg/0.5 mL subcutaneous pen injector] 2 mL 11 Sig: INJECT 5MG SUBCUTANEOUSLY EVERY WEEK Angelica Smith October 07, 2023 3:16 PM documented in this encounter [facility] [facility] Telephone encounter Note Prescription Refill Information The patient has been identified by name and date of : Yes Caregiver verified no other encounters exist for this prescription request: Yes Caregiver confirmed with patient/requestor that no other refills are due, in the near future, with this provider at this time: Yes The last office visit in the department: 08/19/23 Does the patient have a future office visit with this provider/department: Yes Requested Prescriptions Pending Prescriptions Disp Refills MOUNJARO 5 mg/0.5 mL pen injector [Pharmacy Med Name: Mounjaro 5 mg/0.5 mL subcutaneous pen injector] 2 mL 11 Sig: INJECT 5MG SUBCUTANEOUSLY EVERY WEEK Angelica Smith October 07, 2023 3:16 PM [facility] 09-25-2023 Telephone encounter Note [facility] audit indicates patient reviewed message about scheduling an appointment on 09/16/23. Courtney Schultz RN [facility] 09-25-2023 Miscellaneous Notes [employer] audit indicates patient reviewed message about scheduling an appointment on 09/16/23. Courtney Schultz, RN Ms. Gray never made a follow-up appointment with Dr. Webb to go over her test results. documented in this encounter [facility] 09-24-2023 Telephone encounter Note Ms. Gray never made a follow-up appointment with Dr. Webb to go over her test results. [facility] 09-24-2023 History of Present illness Narrative Labs drawn. documented in this encounter [facility] 09-24-2023 History of Present illness Narrative Images from the original note were not included. [facility] FOR MULTIPLE SCLEROSIS FOLLOWUP/ESTABLISHED PATIENT VISIT PRINCIPAL NEUROLOGIC DIAGNOSIS: Multiple sclerosis DISEASE SUMMARY Date of onset: 12/1998 Date of diagnosis of MS: 1998 Disease course at onset: Progressive with relapses Current disease course: Progressive with relapses Previous disease therapies: Glatiramer acetate 2002, [id number], [id number] Fingolimod 07/2014-04/2016 (switched because of heart issues - had heart attack) Teriflunomide 7 mg 04/2016-10/2016 Prednisone x 10 days 03/2017 IVMP 01/25/17 x 1 dose Teriflunomide 14 mg daily Current disease therapy: Kesimpta (started 01/2022) Most recent MRI brain: 07/27/23 Most recent MRI cervical spine: 08/22/22 Most recent MRI thoracic spine: 08/22/22 CSF: 1998 JCV serology result and date: NA CHIEF COMPLAINT: Follow-up on MS disease modifying therapy INTERVAL HISTORY: Usual treating team: Pako/Carlos The patient is accompanied by self. The patient was last seen 08/06/23, currently not on DMT -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 Laterality Date BACK SURGERY HX lower x3 CARPAL TUNNEL lt and rt COLONOSCOPY FLX DX W/COLLJ SPEC WHEN PFRMD 10/12/2014 Colonoscopy inpt [facility] COLONOSCOPY FLX DX W/COLLJ SPEC WHEN PFRMD 02/28/2015 Colonoscopy FINGER SURGERY HX thumb reconstructed KNEE SURGERY HX lt x2 PAST SURGICAL HISTORY OF partial amputation of big toe PAST SURGICAL HISTORY OF Left 01/25/2015 great toe removal PAST SURGICAL HISTORY OF Bilateral 08/2022 C3 and C6 nerve ablasions TONSILLECTOMY HX TUBAL LIGATION HX Social History Tobacco Use Smoking status: Every Day Packs/day: 0.50 Years: 30.00 Additional pack years: 0.00 Total pack years: 15.00 Types: Cigarettes Start date: 01/04/1973 Smokeless tobacco: Never Tobacco comments: Less than 10 Vaping Use Vaping Use: Never used Substance Use Topics Alcohol use: No Drug use: No FAMILY HISTORY Problem Relation Age of Onset Cancer Father lung Cancer Mother pancreatic Multiple Sclerosis No Family History ALLERGIES Allergen Reactions Aspirin Other: See Comments Indomethacin Other: See Comments Abilify [Aripiprazo* Other: See Comments Excessive drooling Clindamycin Intolerance Darvocet A500 [Prop* Intolerance Imitrex [Sumatripta* Vomiting BP went down Iodinated Contrast * Other: See Comments Iodine Intolerance Metformin GI Upset Stomach spasms Propoxyphene Other: See Comments Trazodone Intolerance Unable to wake up CURRENT MEDICATIONS: modafinil (PROVIGIL) 200 mg tablet Take 1 tablet by mouth once daily for 30 days. donepezil (ARICEPT) 10 mg tablet Take 2 tablets by mouth once daily. benzonatate (TESSALON PERLE) 100 mg capsule take 1 tab by mouth three times a day as needed for cough] Blood-Glucose Meter,Continuous (FREESTYLE JANAY 3 READER) [facility] Dispense one reader. E11.9 Blood-Glucose Sensor (FREESTYLE JANAY 3 SENSOR) aubrey Change sensor every 14 days. USE FOR CONTINUOUS GLUCOSE MONITORING. Multiple insulin injections. E11.9 potassium chloride (KLOR-CON) 20 mEq packet Take 20 mEq by mouth once daily. PRN LE edema furosemide (LASIX) 20 mg tablet Take 1 tablet by mouth once daily. PRN LE Edema cyclobenzaprine (FLEXERIL) 5 mg tablet Take 1 tablet by mouth two times a day as needed for muscle spasm. lidocaine (LIDODERM) 5 % Apply 1 Patch as directed once daily. TO AFFECTED AREA. REMOVE AFTER 12 HOURS. flash glucose scanning reader (FREESTYLE JANAY 3 READER) Dispense one reader kit. USE FOR CONTINUOUS GLUCOSE MONITORING. Multiple insulin injections. E11.9 tirzepatide (MOUNJARO) 5 mg/0.5 mL pen injector Inject 5 mg subcutaneously one time a week. ramelteon (ROZEREM) 8 mg tablet Take 8 mg by mouth at bedtime as needed. doxycycline monohydrate (MONODOX) 100 mg capsule Take 1 capsule by mouth two times a day. When needed for a flare-up. mupirocin (BACTROBAN) 2 % ointment Apply to wound twice daily until healed. losartan (COZAAR) 50 mg tablet 50 mg twice daily. carvedilol (COREG) 12.5 mg tablet Take 12.5 mg by mouth twice daily with meals. insulin lispro (HUMALOG KWIKPEN INSULIN) 100 unit/mL Use with meals based on PRE meal blood sugar SLIDING SCALE as needed #1 (1 for 50 over 150) ~20 units daily FARXIGA 10 mg tablet Take 1 tablet by mouth every morning. Insulin Scarbro, Disposable, (BD ULTRAFINE III MINI PEN) 31 gauge x 3/16 Uses 4 per day with insulin injection. flash glucose sensor (FREESTYLE JANAY 2 SENSOR) kit Change sensor every 14 days. USE FOR CONTINUOUS GLUCOSE MONITORING. MULTIPLE INSULIN INJECTIONS. E11.9 cyanocobalamin (VITAMIN B-12) 1,000 mcg tab Take 1 tablet by mouth once daily. QUEtiapine (SEROQUEL) 50 mg tablet Take 100 mg by mouth daily at bedtime. ondansetron (ZOFRAN) 4 mg tablet Take 1 tablet by mouth every 8 hours as needed for nausea/vomiting. isosorbide mononitrate ER (IMDUR) 30 mg 24 hr tablet Take 1 tablet by mouth once daily. (Patient taking differently: Take 30 mg by mouth two times a day.) ferrous sulfate 325 mg (65 mg iron) tablet Take 1 tablet by mouth every 48 hours. rOPINIRole (REQUIP) 1 mg tablet Take 2 mg by mouth daily at bedtime. acetaminophen (TYLENOL) 500 mg tablet Take 500 mg by mouth every 6 hours as needed for pain. apixaban (ELIQUIS) 5 mg tab(s) Take 5 mg by mouth twice daily. albuterol HFA (PROVENTIL HFA, VENTOLIN HFA) 90 mcg/actuation inhaler Inhale 2 Puffs as instructed every 4 hours as needed for wheezing/shortness of breath. vibegron (GEMTESA) 75 mg tablet Take 75 mg by mouth once daily. nitroglycerin sublingual (NITROQUICK) 0.4 mg SL tablet Dissolve 0.4 mg under the tongue every 5 minutes as needed. pioglitazone (ACTOS) 30 mg tablet Take 30 mg by mouth once daily. pantoprazole DR (PROTONIX) 40 mg tablet Take 40 mg by mouth once daily. DULoxetine (CYMBALTA) 30 mg capsule Take 30 mg by mouth twice daily. dicyclomine (BENTYL) 20 mg tablet Take 20 mg by mouth twice daily as needed. PROLIA 60 mg/mL once every 6 months. atorvastatin (LIPITOR) 40 mg tablet Take 40 mg by mouth once daily. ascorbic acid, vitamin C, (VITAMIN C) 500 mg tablet Take 1 tablet by mouth once daily. sucralfate (CARAFATE) 1 gram tablet Take 1 tablet by mouth four times daily. hydrOXYzine HCl (ATARAX) 50 mg tablet Take 1 tablet by mouth three times daily as needed. (Patient taking differently: Take 50 mg by mouth two times a day.) Cholecalciferol, Vitamin D3, 5,000 unit cap Take 1 capsule by mouth once daily. rOPINIRole (REQUIP) 1 mg tablet Take 1 mg by mouth daily with lunch. aspirin, enteric coated (ASPIRIN, ENTERIC COATED) 81 mg EC tablet Take 81 mg by mouth once daily. ofatumumab (KESIMPTA PEN) 20 mg/0.4 mL injection Inject 1 pen (0.4mL) under the skin once monthly (Patient not taking: Reported on 08/11/2023) [DISCONTINUED] teriflunomide (AUBAGIO) 14 mg TAKE 1 TABLET BY MOUTH ONCE DAILY. REVIEW OF SYSTEMS: GENERAL: Denies fever, chills malaise and weight loss. HEENT: No recent change in vision or hearing. CARDIOVASCULAR: Denies chest pain, history of A-fib, valvular disease, or pacemaker/ICD. RESPIRATORY: Denies SOB, sputum production, and hemoptysis. GI: Denies GI ulcers, inflammatory disease, or liver disease. : Denies change in frequency or urgency, kidney disease, and burning with urination. MUSCULOSKELETAL: Negative for joint pain or swelling, back pain or muscle pain. SKIN: Denies rash or itching. PSYCHOLOGICAL: Denies uncontrolled depression or anxiety. NEURO:see hpi and below ENDOCRINE: see below HEMATOLOGY/LYMPHOLOGY: Denies cancer, bleeding or clotting disorders, anemia,and DVT's. ALLERGIC/IMMUNOLOGICAL: Denies risks for infection, or recent MRSA infections. OBJECTIVE: PHYSICAL EXAM BP 123/60 (BP Site: Left Arm, BP Position: Sitting, BP Cuff Size: Regular Adult) Pulse 69 Resp 20 Ht 160 cm (5' 3) Wt 70.8 kg (156 lb) LMP 02/22/2000 (Approximate) SpO2 98% BMI 27.63 kg/m GENERAL APPEARANCE: age appropriate appearance, no apparent distress. NEURO PSYCH: Mood pleasant. Benign affect. CARDIOVASCULAR: Palpable pulses. No edema noted. No varicosities. SKIN: Head, neck, trunk, and extremities dry, healing scabs on face. Well healed posterior cervical and lumbar incisions MUSCULOSKELETAL VISUAL INSPECTION CERVICAL: WNL THORACIC: very kyphotic LUMBAR: reduced lordosis PALPATION: SPINOUS PROCESS: now TTP at L3L4 and prominent PARASPINALS: No pain. SPINE ROM: LUMBAR ROM: reduced ROM With Pain Wall walking with impaired balance if not using Rollator Data Review: [facility] records independently reviewed ASSESSMENT/PLAN 67 yo woman with PMH anxiety, depression, afib on eliquis, CHrEF 2/2 CM, colitis, COPD, DM, HPL, h/o GIB, HTN, h/o [place], obesity, pancreatitis, RLS, MS, cognitive impairments, cervical myelopathy, h/o cervical fusion C3C6 x 1 and lumbar fusion x 3 with evident fusion at L4L5 (apparent graft) SP tenderness at L3L4 and on closer review of lumbar flex ext views may have some degree of instability anterior disk , so now order for MRI L spine to r/o ligamentous instability. Also notable kyphosis with sig ddd in T spine but no notable compression fxs. The cervical spine issues more likely myofascial and scar sensitivity. MRI L spine completed with severe canal stenosis at L3L4 and foraminal stenosis at L4L5 and L5S1 but also with localizer views showing likely severe canal stenosis at T10/T11 and possible myelomalacia. There is evidence of compression fx at T11 Next for thoracic xr then for MRI T spine wwo KASEY and adding contrast with MS hx- she has iodine allergy but not to corina and had previous MRI orbit w contrast wo issue Spasticity noted and d/w her options- she opted for low dose zanaflex for now. Lidocaine 5% TD refilled F/u after MRI Sudden neuro decline - to ER Patient understands above plan; questions asked and answered. Medication options, including side effects, were discussed in detail. Education was given regarding signs and symptoms that would indicate a serious change in condition, and they were instructed to seek care immediately should these arise. Patient agrees to plan as noted above. These notes are used for the purpose of medical documentation and that for use for other medical providers. Jargon expressed here is intentioned for use under this context. Meka Webb MD. I spent a total of 30 minutes on the date of the service which included preparing to see the patient, [id number] patient care, completing clinical documentation, performing a medically appropriate examination, counseling and educating the patient/family/caregiver, and ordering medications, tests, or procedures. documented in this encounter [facility] 09-15-2023 Nurse Note Patient presents with chief complaints of MID BACK PAIN. Any new or significant change in pain?no Worst level of pain, 1-10, with 1 being mild discomfort is 7-8 PAIN INCREASED BY: SITTING and WALKING PAIN DECREASED BY: OTHER COLD AND HEAT THERAPEUTIC INTERVENTIONS: PHYSICAL THERAPY LAND, INJECTIONS, and MEDICATION The following tests/records were reviewed: testing at [facility]. Do you need any refills today from the doctor?unsure Courtney Schultz RN [facility] 09-15-2023 Nurse Note Patient presents with chief complaints of MID BACK PAIN. Any new or significant change in pain?no Worst level of pain, 1-10, with 1 being mild discomfort is 7-8 PAIN INCREASED BY: SITTING and WALKING PAIN DECREASED BY: OTHER COLD AND HEAT THERAPEUTIC INTERVENTIONS: PHYSICAL THERAPY LAND, INJECTIONS, and MEDICATION The following tests/records were reviewed: testing at [facility]. Do you need any refills today from the doctor?unsure Courtney Schultz RN documented in this encounter [facility] 09-09-2023 Telephone encounter Note Signed DWO form for CGM sensors faxed to [facility] Attn: Vitor Castano at . Fax confirmation received. Tenisha Messer RN September 09, 2023 10:21 AM [facility] 09-09-2023 Miscellaneous Notes Signed DWO form for CGM sensors faxed to [facility] Attn: Vitor Castano at . Fax confirmation received. Tenisha Messer RN September 09, 2023 10:21 AM documented in this encounter [facility] 09-07-2023 Telephone encounter Note Called patient, no answer. Message left to return call to office when able. Maribell Cunha RN [facility] 09-07-2023 Miscellaneous Notes Called patient, no answer. Message left to return call to office when able. Maribell Cunha RN Ramin Call Name of caller : Elo Relationship to patient: Self Return call phone number : [phone] Reason for call : Patient has MS related questions documented in this encounter [facility] 09-07-2023 Telephone encounter Note Ramin Call Name of caller : Elo Relationship to patient: Self Return call phone number : [phone] Reason for call : Patient has MS related questions [facility] 09-03-2023 Telephone encounter Note Images from the original note were not included. Called patient, notified of response from Bill below, she states she will contact Dr Soria, her Management Trainee [employer], to schedule an appointment. Encouraged patient to contact office for any other questions or needs. Bill Woods PA-C You6 days ago We aren't sure but she is still immunosuppressed since last dose of Kesimpta was only 1 month ago (07/23) so likely still B cell depleted. Would recommend follow-up with derm - they may need to bx to get more information Maribell Cunha RN [facility] 09-03-2023 Miscellaneous Notes Images from the original note were not included. Called patient, notified of response from Bill below, she states she will contact Dr Soria, her Management [employer], to schedule an appointment. Encouraged patient to contact office for any other questions or needs. Bill Woods PA-C You6 days ago We aren't sure but she is still immunosuppressed since last dose of Kesimpta was only 1 month ago (07/23) so likely still B cell depleted. Would recommend follow-up with derm - they may need to bx to get more information Maribell Cunha RN Called patient, no answer. Message left to return call to office when able. Maribell Cunha RN Called patient, verified name and . Patient states 1 week ago she was diagnosed with pneumonia. She was treated with Augmentin and Prednisone. She still has two days left of prednisone. She is feeling much improved today, her fatigue is better, speech is clearer than it has been for a long time, and cough is improved. While she was on Augmentin, she had to DC Doxycycline and her facial rash symptoms became significantly worse. She resumed Doxycycline after Augmentin completion and the facial rash is starting to clear up again. She is curious as to Bill's input if the facial rash may be occurring due to her immune system or other reason, and not Kesimpta related after all? She also started Speech Therapy and is pleased with her progress. She is on Kesimpta holiday for July, August, and September at this time. Maribell Cunha RN Called patient, no answer. Message left to return call to office when able. Maribell Cunha RN Ramin Call Name of caller : Elo Relationship to patient: Self Return call phone number : [phone] Reason for call : Pt calling to follow up with her Kesimpta with Coordinator documented in this encounter [facility] 08-31-2023 Telephone encounter Note Called patient, no answer. Message left to return call to office when able. Maribell Cunha RN [facility] 08-28-2023 Telephone encounter Note Called patient, verified name and . Patient states 1 week ago she was diagnosed with pneumonia. She was treated with Augmentin and Prednisone. She still has two days left of prednisone. She is feeling much improved today, her fatigue is better, speech is clearer than it has been for a long time, and cough is improved. While she was on Augmentin, she had to DC Doxycycline and her facial rash symptoms became significantly worse. She resumed Doxycycline after Augmentin completion and the facial rash is starting to clear up again. She is curious as to Bill's input if the facial rash may be occurring due to her immune system or other reason, and not Kesimpta related after all? She also started Speech Therapy and is pleased with her progress. She is on Kesimpta holiday for July, August, and September at this time. Maribell Cunha RN [facility] 08-28-2023 Telephone encounter Note Called patient, no answer. Message left to return call to office when able. Maribell Cunha RN [facility] 08-28-2023 Telephone encounter Note The following approved medication requests have been transmitted electronically. Requested Prescriptions Signed Prescriptions Disp Refills donepezil (ARICEPT) 10 mg tablet 180 tablet 3 Sig: Take 2 tablets by mouth once daily. Authorizing Provider: JAKE KINSEY Ordering User: BILL WOODS PA-C [facility] 08-28-2023 Miscellaneous Notes The following approved medication requests have been transmitted electronically. Requested Prescriptions Signed Prescriptions Disp Refills donepezil (ARICEPT) 10 mg tablet 180 tablet 3 Sig: Take 2 tablets by mouth once daily. Authorizing Provider: JAKE KINSEY Ordering User: BILL WOODS PA-C Source : electronic from pharmacy requesting refill. Delivery : e-script Requested Prescriptions Pending Prescriptions Disp Refills donepezil (ARICEPT) 10 mg tablet 180 tablet 3 Sig: Take 2 tablets by mouth once daily. DX : Patient last seen: 08/06/2023 Next Appointment : None Tiffanie Cline documented in this encounter [facility] 08-28-2023 Telephone encounter Note Source : electronic from pharmacy requesting refill. Delivery : e-script Requested Prescriptions Pending Prescriptions Disp Refills donepezil (ARICEPT) 10 mg tablet 180 tablet 3 Sig: Take 2 tablets by mouth once daily. DX : Patient last seen: 08/06/2023 Next Appointment : None Tiffanie Cline [facility] Work Phone: 08-28-2023 Telephone encounter Note Ramin Call Name of caller : Elo Relationship to patient: Self Return call phone number : [phone] Reason for call : Pt calling to follow up with her Demian with Coordinator [facility] 08-19-2023 Telephone encounter Note Faxed Freestyle Janay 3 prescription, along with OV notes to Vitor Castano. Confirmation received. Placed in files Amy Campbell MA [facility] 08-19-2023 Miscellaneous Notes Faxed Freestyle Janay 3 prescription, along with OV notes to Vitor Castano. Confirmation received. Placed in files Amy Campbell MA documented in this encounter [facility] 08-19-2023 History of Present illness Narrative OFFICE VISIT PROGRESS NOTE CC Elo Gray is a 67 year old female who presents today for blood sugar, dm med dose review, adjust. HPI Diagnosed with diabetes mellitus type II, ~ 1999 Last endocrine OV 02/11/2023 Some elements copied from my note 02/11/2023 which have been updated where appropriate, and all reflect current medical decision making from date of this visit. Pt increased herself to 1 mg OZEMPIC dosing Gets diabetic meals through [employer] Follows with [facility] for MS Will be re-evaluated for MS Had recent MRI and several changes were noted Recent issue with dehydration and lower blood sugar of 56 Squad to [facility] and she was rehydrated and sent home HPI - 02-11-2023 Doing well Had optic MRI for hx of neuritis, no new findings Loves the ozempic I 'lost more weight' Hardily using the SS HPI 08/19/2023 Treated for bronchitis at this time Is on antibiotics, no steroids Now running a temp (102) seeing express care tomorrow again I'm worried that I have pneumonia now, coughing a lot, 'sticky mucous' yellow, has been using nebulizer Sugars have not really elevated Freestyle 2 reader broke, pt is using her phone only for CGM CURRENT DM MEDS Humalog SS IF NEEDED - uses approx 1 time daily - uses very minimally MOUNJARO 5 mg weekly injection FARXIGA 10 mg 1 tab daily ACTOS 30 mg 1 tab daily SMBG Type of Monitor: Other [employer] JANAY CGM 2 Frequency of Monitoring MISSING DATA due to not having her reader -- Values over past week: Highest ; Lowest Hypoglycemia: no Diet: none specific Exercise: PT 2 times per week DM REVIEW OF SYSTEMS Last Eye Exam : orbital MRI, at last eye exam, hx of optic neuritis, nothing new. December 2022 Last Podiatry Exam: sees podiatry, great toe L foot amputation (infected blister) sees for nails Cardiorespiratory: negative, denies chest pain, pressure Claudication: no Dyslipidemia: Yes, controlled on medication High Blood Pressure: Yes, controlled on medication CURRENT LABS Latest Ref Rng 01/14/2023 07/27/2023 Glucose 74 - 99 mg/dL 202 (H) BUN 7 - 21 mg/dL 17 Creatinine 0.58 - 0.96 mg/dL 0.60 Sodium 136 - 144 mmol/L 135 (L) Potassium 3.7 - 5.1 mmol/L 3.7 Chloride 97 - 105 mmol/L 102 CO2 22 - 30 mmol/L 24 Anion Gap 9 - 18 mmol/L 9 eGFR >=60 mL/min/1.73m 98 Total Cholesterol, Nonfasting <200 mg/dL 131 Triglycerides, Nonfasting <150 mg/dL 62 HDL Cholesterol, Nonfasting >39 mg/dL 82 LDL Cholesterol, Nonfasting <100 mg/dL 37 Non HDL Cholesterol, Nonfasting <130 mg/dL 49 VLDL Cholesterol, Nonfasting <30 mg/dL 12 Total Chol/HDL Ratio, Nonfasting <5.10 mg/dL 1.60 LDL/HDL Ratio, Nonfasting <2.54 mg/dL 0.45 Hemoglobin A1C 4.3 - 5.6 % 7.1 (H) 6.7 (H) Estimated Average Glucose mg/dL 157 146 PAST MEDICAL HISTORY Diagnosis Date Anxiety and depression Anxiety and depression Atrial fibrillation (HCC) Cardiomyopathy (HCC) Cervical myelopathy (HCC) CHF (congestive heart failure) (HCC) Cognitive impairment Colitis COPD (chronic obstructive pulmonary disease) (HCC) Diabetes (HCC) Dyslipidemia GI bleed History of loop recorder Hypertension IBS (irritable bowel syndrome) Multiple sclerosis (HCC) Myocardial infarct, old 03/2016 Obesity Pancreatitis 1978 Renal insufficiency RLS (restless legs syndrome) Tobacco dependence Urinary incontinence PAST SURGICAL HISTORY Procedure Laterality Date BACK SURGERY HX lower x3 CARPAL TUNNEL lt and rt COLONOSCOPY FLX DX W/COLLJ SPEC WHEN PFRMD 10/12/2014 Colonoscopy inpt [facility] COLONOSCOPY FLX DX W/COLLJ SPEC WHEN PFRMD 02/28/2015 Colonoscopy FINGER SURGERY HX thumb reconstructed KNEE SURGERY HX lt x2 PAST SURGICAL HISTORY OF partial amputation of big toe PAST SURGICAL HISTORY OF Left 01/25/2015 great toe removal PAST SURGICAL HISTORY OF Bilateral 08/2022 C3 and C6 nerve ablasions TONSILLECTOMY HX TUBAL LIGATION HX FAMILY HISTORY Problem Relation Age of Onset Cancer Father lung Cancer Mother pancreatic Multiple Sclerosis No Family History Social History Tobacco Use Smoking status: Every Day Packs/day: 0.50 Years: 30.00 Additional pack years: 0.00 Total pack years: 15.00 Types: Cigarettes Start date: 01/04/1973 Smokeless tobacco: Never Tobacco comments: Less than 10 Vaping Use Vaping Use: Never used Substance Use Topics Alcohol use: No Drug use: No Current Outpatient Medications Medication Sig ofatumumab (KESIMPTA PEN) 20 mg/0.4 mL injection Inject 1 pen (0.4mL) under the skin once monthly cyclobenzaprine (FLEXERIL) 5 mg tablet Take 1 tablet by mouth two times a day as needed for muscle spasm. lidocaine (LIDODERM) 5 % Apply 1 Patch as directed once daily. TO AFFECTED AREA. REMOVE AFTER 12 HOURS. doxycycline hyclate (VIBRAMYCIN) 100 mg capsule Take 100 mg by mouth two times a day. flash glucose scanning reader (FREESTYLE JANAY 3 READER) Dispense one reader kit. USE FOR CONTINUOUS GLUCOSE MONITORING. Multiple insulin injections. E11.9 semaglutide (OZEMPIC) 1 mg/dose (4 mg/3 mL) pen Inject 1 mg subcutaneously one time a week. tirzepatide (MOUNJARO) 5 mg/0.5 mL pen injector Inject 5 mg subcutaneously one time a week. ramelteon (ROZEREM) 8 mg tablet Take 8 mg by mouth at bedtime as needed. CPAP/BIPAP/OTHER Discontinue bilevel PAP (Patient not taking: Reported on 06/24/2023) Blood-Glucose Sensor (FREESTYLE JANAY 3 SENSOR) aubrey Change sensor every 14 days. USE FOR CONTINUOUS GLUCOSE MONITORING. Multiple insulin injections. E11.9 modafinil (PROVIGIL) 200 mg tablet Take 1 tablet by mouth once daily for 180 days. doxycycline monohydrate (MONODOX) 100 mg capsule Take 1 capsule by mouth two times a day. When needed for a flare-up. mupirocin (BACTROBAN) 2 % ointment Apply to wound twice daily until healed. losartan (COZAAR) 50 mg tablet 50 mg twice daily. carvedilol (COREG) 12.5 mg tablet Take 12.5 mg by mouth twice daily with meals. insulin lispro (HUMALOG KWIKPEN INSULIN) 100 unit/mL Use with meals based on PRE meal blood sugar SLIDING SCALE as needed #1 (1 for 50 over 150) ~20 units daily FARXIGA 10 mg tablet Take 1 tablet by mouth every morning. donepezil (ARICEPT) 10 mg tablet Take 2 tablets by mouth once daily. Insulin Scarbro, Disposable, (BD ULTRAFINE III MINI PEN) 31 gauge x 3/16 Uses 4 per day with insulin injection. flash glucose sensor (FREESTYLE JANAY 2 SENSOR) kit Change sensor every 14 days. USE FOR CONTINUOUS GLUCOSE MONITORING. MULTIPLE INSULIN INJECTIONS. E11.9 Alosetron HCl 0.5 mg tablet (Patient not taking: Reported on 06/24/2023) cyanocobalamin (VITAMIN B-12) 1,000 mcg tab Take 1 tablet by mouth once daily. QUEtiapine (SEROQUEL) 50 mg tablet Take 100 mg by mouth daily at bedtime. ondansetron (ZOFRAN) 4 mg tablet Take 1 tablet by mouth every 8 hours as needed for nausea/vomiting. isosorbide mononitrate ER (IMDUR) 30 mg 24 hr tablet Take 1 tablet by mouth once daily. ferrous sulfate 325 mg (65 mg iron) tablet Take 1 tablet by mouth every 48 hours. rOPINIRole (REQUIP) 1 mg tablet Take 2 mg by mouth daily at bedtime. acetaminophen (TYLENOL) 500 mg tablet Take 500 mg by mouth every 6 hours as needed for pain. apixaban (ELIQUIS) 5 mg tab(s) Take 5 mg by mouth twice daily. albuterol HFA (PROVENTIL HFA, VENTOLIN HFA) 90 mcg/actuation inhaler Inhale 2 Puffs as instructed every 4 hours as needed for wheezing/shortness of breath. vibegron (GEMTESA) 75 mg tablet Take 75 mg by mouth once daily. nitroglycerin sublingual (NITROQUICK) 0.4 mg SL tablet Dissolve 0.4 mg under the tongue every 5 minutes as needed. pioglitazone (ACTOS) 30 mg tablet Take 30 mg by mouth once daily. pantoprazole DR (PROTONIX) 40 mg tablet Take 40 mg by mouth once daily. DULoxetine (CYMBALTA) 30 mg capsule Take 30 mg by mouth twice daily. dicyclomine (BENTYL) 20 mg tablet Take 20 mg by mouth twice daily as needed. PROLIA 60 mg/mL once every 6 months. calcium carbonate (CALTRATE) 600 mg calcium (1,500 mg) tab Take 600 mg by mouth once daily. atorvastatin (LIPITOR) 40 mg tablet Take 40 mg by mouth once daily. ascorbic acid, vitamin C, (VITAMIN C) 500 mg tablet Take 1 tablet by mouth once daily. sucralfate (CARAFATE) 1 gram tablet Take 1 tablet by mouth four times daily. hydrOXYzine HCl (ATARAX) 50 mg tablet Take 1 tablet by mouth three times daily as needed. (Patient taking differently: Take 50 mg by mouth two times a day.) Cholecalciferol, Vitamin D3, 5,000 unit cap Take 1 capsule by mouth once daily. rOPINIRole (REQUIP) 1 mg tablet Take 1 mg by mouth daily with lunch. aspirin, enteric coated (ASPIRIN, ENTERIC COATED) 81 mg EC tablet Take 81 mg by mouth once daily. No current facility-administered medications for this visit. ALLERGIES Allergen Reactions Aspirin Other: See Comments Indomethacin Other: See Comments Abilify [Aripiprazo* Other: See Comments Excessive drooling Clindamycin Intolerance Darvocet A500 [Prop* Intolerance Imitrex [Sumatripta* Vomiting BP went down Iodinated Contrast * Other: See Comments Iodine Intolerance Metformin GI Upset Stomach spasms Propoxyphene Other: See Comments Trazodone Intolerance Unable to wake up REVIEW OF SYSTEMS - POSITIVES IN BOLD GENERAL:No weight loss, malaise or fevers HEENT:Negative for frequent or significant headaches, No changes in hearing or vision, no nose bleeds or other nasal problems NECK:Negative for lumps, goiter, pain and significant neck swelling RESPIRATORY: Negative for cough, hemoptysis, wheezing, COPD, dyspnea or shortness of breath CARDIOVASCULAR: Negative for chest pain, leg swelling, hypertension, CHF or palpitations PHYSICAL EXAMINATION: BP 112/66 Pulse 65 Temp 36.7 C (98.1 F) (Temporal Artery) Ht 160 cm (5' 3) Wt 70.8 kg (156 lb) LMP 02/22/2000 (Approximate) SpO2 95% BMI 27.63 kg/m GENERAL: alert and appropriate, in no distress and well-hydrated, well nourished SKIN: no rash noted HEAD: normocephalic, no abnormality or lesion noted EYES: PERRL NECK: full ROM, no cervical LNs noted ACANTHOSIS: none noted EXTREMITIES: normal NEUROLOGIC: no obvious deficit ASSESSMENT: (E11.69) Type 2 diabetes mellitus with other specified complication, without long-term current use of insulin (HCC) (primary encounter diagnosis) Comment: overall very well controlled, no changes at this time Recommended diet: Low carbohydrate and Low saturated fat, low simple sugar, high fiber diet Exercise minimally 150 minutes per week, increase as tolerated. Adequate hydration - 1/2 body wgt in oz of water daily, unless fluid restriction applies. I instructed the patient to monitor blood sugars 4 times per day If blood sugars are persistently high or low, to call our office. Patient to continue to follow up with her PCP and with other consultants regarding her other medical problems. Plan: COMPREHENSIVE METABOLIC PANEL, LIPID PANEL, NONFASTING, ALBUMIN/CREATININE RATIO, URINE, HEMOGLOBIN A1C Rosa Flores CNP documented in this encounter [facility] 08-13-2023 Miscellaneous Notes Patient was told to call back and let us know what they found out at the doctor: Patient has bronchitis and she is now on 2 scripts - Augmentin and Teslon perls Order for Speech Therapy Eval and Treat faxed to [phone] [facility] location. Called patient, no answer. Message left indicating ST order has been faxed as requested with phone number of [facility] location for patient to call if she does not hear from them in 24-48 hours to schedule. Maribell Cunha RN Agree with plan by RN. Speech therapy orders entered. Lisa Morataya APRN.CNP Patient returned call to office, verified name and . Patient reports she does not feel good, and currently has come down with a cold. She reports she has a lot of nasal congestion and a moist non-productive cough. She has been using a nebulizer breathing treatment to help break up the cough and denies any SOB. Reports low grade fevers 99/100 the past few days. She has appt with PCP tomorrow for further evaluation. Patient states she saw her Pain Management provider yesterday and her speech was slurring again. She states unless she spoke very slowly, her provider was unable to understand her. Reviewed that illness/infection may cause a temporary worsening of her typical MS symptoms. She verbalized understanding. Patient's speech on this call is comprehendible and does not sound different than past interactions with patient, patient also feels her speech is at baseline today. Patient would like referral for Speech Therapy to pursue locally at [facility]. Order will need faxed to #[phone] and their phone number is [phone]. Routing to covering provider for Bill Woods PA-C. Maribell Cunha RN Called patient, no answer. Message left to return call to office when able. Maribell Cunha RN [place] Call Name of caller : Elo Relationship to patient: Self Return call phone number : [phone] Reason for call : Patient was told to contact office if her speech worsened. Patient is also requesting a order for Speech Therapy. documented in this encounter [facility] 08-12-2023 Miscellaneous Notes See phone encounter 08-11-2023 for further documentation. 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 yes documented in this encounter [facility] 08-11-2023 History of Present illness Narrative Images from the original note were not included. [facility] Pre-Procedure Note Patient Name: Elo Gray Room 21 SUBJECTIVE: Ms. Elo Gray is a 67 year old woman who presents to [facility] for TPIs. Reports that the last procedure in the neck provided 100% relief that persists. No need for repeat of these today. Lumbar TPIs provided 90% relief for the last month and now the myofascial pain is slowly returning (different from her new symptoms), so will repeat lumbar TPIs. New c/o: Can't sit in most straight chairs wo something b/h my back - if she does, the pain goes through the right lower back and then down her RLE toward the knee Lidoderm patches are extremely helpful to alleviate the pain and prevent its progression RLS has been more problematic lately. Patient reports she walks bent over until she relieves the pain RLE pain: posterior buttocks and thigh. Stops at the knee Not worse walking. Worse sitting but only if she leans back. If she leans back against the chair, will -> pain down the leg. Heating pad and Lidoderm help immensely. SMR equivocally helpful. Pain does not come on with walking or standing; comes on with rest (does not go away with rest) Cannot stand still for any length of time; needs to move around to maintain comfort Does not sound c/w neurogenic claudication Back and leg pain are not preciptated by defecation, coughing, flexion, etc. MS is fairly stable. Scans stable. Has had to take a break from Kesimpta 2/2 skin reaction, for which she is treated with ABX. She has also developed some slurred speech despite stable lesions, so thought may be that this sx is a SE from Kesimpta. Will f/u with them in the hopes that the Kesimpta can be restarted soon. Still smoking ~3/4 ppd Last visit 06/16/23: SUBJECTIVE: Elo Gray is a 67 year old woman who presents to [facility] for medication update, medications, and status encounter. TPIs have been helping immensely with pain and function as well as activity level and ability to decrease cigarette use. Knitting hats which keep her hands busy and have helped with efforts to stop smoking. Recently fell without serious injury except eschar on her knee. The pain is located in the upper back and trapezius muscles bilaterally and lower back pain on both sides and somewhat laterally. Ms. Gray has been compliant with medications and requires refill #16 Percocet x at least 3 months. Script sent and printed. She appreciates physiotherapy and wants to work on neck core, lower back strengthening and conditioning, and posture with hip girdle assessment and therapy and requires a new 2023 script. Script sent and printed for Ms. Gray. MS is stable although she was having some speech difficulties last week, possibly exacerbated by a UTI, now improved with doxycycline. Symptoms have resolved. Hgb A1c 6.4. Encouraged continued vigilance. Current pain intensity is 6 out of 10. ASSESSMENT: Patient has been compliant with opioids. Using medication as prescribed. For MS-related pain and spine pain, not for myofascial pain. No SE noted nor reported. Alert and oriented without any s/s disorientation nor sedation. No miosis. Medication allows patient to remain functional even on days with severe pain. Agree with continued judicious, prn use. R/b/a reviewed and agreed upon. Script sent for 3 months (at least). Wishes to c/w PT and needs a new script. Medication allows for her participation in PT as well. Script entered and printed for Ms Gray. Q/C A/A to Ms Gray's satisfaction. PLAN: 1) s/p trigger point injections. 2) Script sent for Percocet #16 to last at least 3 months. 3) PT script entered and printed. 4) RTC 6-8 weeks for upper and lower TPIs and status update on MS. 5) Encouraged smoking cessation. 6) The treatment plan was discussed with the patient. Post procedure instructions were reviewed and the patient voiced understanding. The pain is located in the lower back wo radiation. Bentyl, Protonix, Zofran - helps her tolerate the doxycycline. No SE reported or noted. 7-day course of tx Pain Pain Level: 7 Pain Location: Back-Lower Description: Aching, Burning, Dull, Radiating, Throbbing Intervention/Comfort measure: Reposition, Positioning, Other: See comment Patient denies any contraindications to the procedure including , coagulopathy, infection, recent cerebral/myocardial infarct, and hemodynamic instability. OBJECTIVE: BP 109/54 (BP Site: Left Arm, BP Position: Sitting, BP Cuff Size: Regular Adult) Pulse (!) 57 Temp 36.8 C (98.3 F) (Temporal) Resp 18 LMP 02/22/2000 (Approximate) SpO2 100% Significant changes in the patient's condition since the History and Physical: + Yunior's LEFT side -> left SIJ pain No pain with right Yunior's Neg supine SLR both sides + Kenisha's finger test right SIJ (not left) - may be myofascial ++ TTP over lumbar paraspinal mm -> addressed with TPIs today No pain with flexion or extension No TTP over facet joints Equivocal right LBP with right facet loading; nothing with left loading Sleeping with left knee bent and right leg similar to right Yunior's -> relieves right LBP. Supine (flat) -> right LBP pain Usually sleeps LLD for maximum comfort Jumpy with palpation over GTs bilaterally, but unimpressive for bursitis Negative compression test. INFORMED CONSENT: The procedure, risks, benefits and options were discussed with patient. There are no contraindications to the procedure. The patient expressed understanding and agreed to proceed. The personnel performing the procedure was discussed. I verify that I personally obtained Elo Gray's consent prior to the start of the procedure and the signed consent can be found on the patient's chart. UNIVERSAL PROTOCOL / SAFETY CHECKLIST Procedure to be Performed: TPIs Sign In: A Moment of CARE was completed. Personnel directly involved with the procedure wore the appropriate PPE (Personal Protective Equipment). Patient/Surrogate Stated/Verified: PATIENT VERIFIED(optional for EMERGENT procedures): Patient name, Date of , Relevant allergies, and The intended procedure Time Out Communication: Intended patient and procedure match the source documents. Consent documented and matches the intended procedure. Sign Out: SIGN OUT (optional for EMERGENT procedures): No specimen collected. Heather Davis MD PROCEDURE: TRIGGER POINT INJECTIONS - gluteus ranjith, erector spinae, and gluteus medius mm Position: sitting Sites of pain confirmed prior to procedure Skin prepped with alcohol Needle: 25g 1.5 Q Negative aspiration for heme, air, CSF at all times and depths LA: bupiv 0.25% Approximate total volume of local anesthetic: 20 ml No complications were evident. No specimens collected. No paresthesias elicited. [facility] Post-Procedure Note Patient name: Elo Gray Pre Procedure diagnosis: (G35) MS (multiple sclerosis) ([facility]) (primary encounter diagnosis) (I48.0) Paroxysmal A-fib (HCC) (M79.18) Myofascial pain syndrome (M79.18) Myofascial pain syndrome of lumbar spine (M79.18) Myofascial pain syndrome, cervical (M79.18) Myofascial pain Post-Procedure diagnosis: same NEW IMAGIN07/27/2023 10:05 AM - Radiology, [place] In Impression IMPRESSION: Postop changes following dorsal decompression procedure at L4-S1. Severe severe canal, right subarticular recess and mild bilateral bony foraminal stenosis at L3-4. Mild cord compression bilateral bony foraminal stenosis and suspicion of mild myelomalacia or intramedullary plaque at T10-11. Anatomic Lumbar Variant: None. L4-5 is considered the level of the iliac crest and assume there are 5 lumbar-type vertebrae. Since developmental variants may exist elsewhere in the spine, correlation with thoracic spine imaging would be helpful for accurate labeling of vertebral levels in the thoracic spine as clinically directed. 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 Chronic progressive midline low back pain. TECHNIQUE: Routine lumbosacral spine MR protocol without gadolinium. MQ: [id number] COMPARISON: None. RESULT: Counting reference: Lumbosacral junction. For the purposes of this report, L4-5 is considered the level of the iliac crest and assume there are 5 lumbar-type vertebrae. Anatomic variant: None. Localizer images: No additional findings. Alignment: Thoracolumbar dextroscoliosis with apex of the curvature at L3. Straightening of the normal lumbar lordosis. Severe disc space narrowing is noted throughout the visualized spine with sparing of the L2-3 level. Bone marrow signal/fracture: No evidence of pathologic marrow infiltration. Mild asymmetric wedge deformity of the T11 vertebral body with normal signal intensity characteristics of the marrow suggesting remote benign compression fracture. Apparent bony fusion of the L4 and L5 vertebral bodies. Laminectomy defect is noted at L4-S1 and a right inferior facetectomy at L4. There may be a partial left facetectomy at this same level.. Suspicion of right unilateral chronic pars fracture at L5-S1. Conus: Mild disc osteophyte complex and facet degenerative changes appear to cause mild cord compression at T10-11. Patchy hyperintensity is noted in the cord at this same level which may reflect myelomalacia or intramedullary plaque in view of the clinical history of multiple sclerosis but the cord compression would favor the former. Paraspinal soft tissues: Disruption of the dorsal soft tissue planes compatible with the prior surgery. Lower thoracic spine: Mild disc osteophyte complex and facet degenerative changes cause mild cord compression at T10-11. Facet degenerative changes at T11-12 and minimal disc bulging at T12-L1 only minimally impinges on the canal. Facet degenerative changes and rostrocaudal facet subluxation cause moderate left and severe right T10-11 and mild right T11-12 foraminal stenosis. L1-L2: Mild osteophyte formation and facet degenerative change cause mild canal and mild left foraminal stenosis.. L2-L3: Mild facet degenerative change. Canal and foramina widely patent. L3-L4: Mild disc osteophyte complex, facet degenerative changes and developmentally short pedicles cause severe canal stenosis, right subarticular recess stenosis, and mild bilateral foraminal stenosis. L4-L5: Prior laminectomy. Canal and right neural foramen are patent. Bony hypertrophic changes cause mild left foraminal stenosis. L5-S1: Prior laminectomy. The canal is widely patent. Bony hypertrophic changes only mildly impinge on the neural foramina.. Sacrum and iliac wings: The visualized sacrum and iliac wings are within normal limits. ASSESSMENT: Purposeful response to verbal or tactile stimulation: yes Neurological Status: Alert and oriented x 3 Awake, moving all extremities Post Procedure Pain Level: 0 on a scale of 0-10. Muscles less tender to palpation States muscle pain relieved and gone Postoperative Nausea/Vomiting (PONV): absent Long discussion was had regarding Ms. Gray's new back symptoms (see HPI above). Reviewed imaging with the patient. D'dx includes facet arthropathy, SIJ pathology, GTB, and/or myofascial pain. PE is slightly suggestive of facet or SIJ as the pain generator, but too equivocal to make a strong argument for either site as target for intervention(s) at this time. For now, would have her focus on gentle exercise, improvement in facial reaction, and resumption of MS medication. Encouraged smoking cessation. Lidoderm is extremely helpful for amelioration of back pain, especially bothersome right lower back pain. She will c/w this medication. PLAN: 1) s/p trigger point injections. 2) RTC 4-5 weeks for same and medication encounter. 3) C/w Lidoderm. 4) The treatment plan was discussed with the patient. 5) Post procedure instructions were reviewed and the patient voiced understanding. Heather Davis MD I spent a total of 24 minutes on the date of the service [id number] with the patient today to discuss new problem (separate from TPIs). Total FTFT [id number] + [id number] documentation documented in this encounter [facility] 08-06-2023 History of Present illness Narrative Images from the original note were not included. [facility] FOR MULTIPLE SCLEROSIS FOLLOWUP/ESTABLISHED PATIENT VISIT PRINCIPAL NEUROLOGIC DIAGNOSIS: Multiple sclerosis DISEASE SUMMARY Date of onset: 12/1998 Date of diagnosis of MS: 1998 Disease course at onset: Progressive with relapses Current disease course: Progressive with relapses Previous disease therapies: Glatiramer acetate 2002, [id number], [id number] Fingolimod 07/2014-04/2016 (switched because of heart issues - had heart attack) Teriflunomide 7 mg 04/2016-10/2016 Prednisone x 10 days 03/2017 IVMP 01/25/17 x 1 dose Teriflunomide 14 mg daily Current disease therapy: Kesimpta (started 01/2022) Most recent MRI brain: 07/27/23 Most recent MRI cervical spine: 08/22/22 Most recent MRI thoracic spine: 08/22/22 CSF: 1998 JCV serology result and date: NA CHIEF COMPLAINT: Follow-up on MS disease modifying therapy INTERVAL HISTORY: Usual treating team: Pako/Carlos The patient is accompanied by self. The patient was last seen 06/24/23, currently taking Kesimpta . Since the patient's last visit the patient reports overall feeling stable. stopped taking calcium pill after elevated labs in May - will see PCP next month Face continues to breakout - worse after each dose of Kesimpta - also gets slurred speech about 4-5 days after dose. Sounds like more of a lisp of words don't come out right. Not sure if it is a Kesimpta vs. MS thing? Did speech therapy for a couple months previously Goes to [facility] 4 days per week Follows with eye doctor q6 months SUBJECTIVE & REVIEW OF SYSTEMS: Neuro-QoL Functions (higher=better functioning) Flowsheet [facility] Office Visit from 01/29/2023 in [facility] Point Office Visit from 01/14/2023 in Neurology Office Visit from 09/03/2022 in Neurology Upper Extremity Domain T Score 36.77 41 43 Lower Extremity Domain T Score 41.61 39 39 Cognitive Function Domain T Score 36.84 40 40 Positive Affect Well Being T Score -- -- -- Ability To Participate In Social Roles T Score 38.47 42 42 Satisfaction With Social Roles T Score 41.97 45 46 Neuro-QoL Symptoms (higher=worse symptoms) Flowsheet [facility] Office Visit from 01/29/2023 in [facility] Office Visit from 01/14/2023 in Neurology Office Visit from 09/03/2022 in Neurology Sleep Domain T Score 62 61 63 Fatigue Domain T Score 52.38 54 60 Anxiety Domain T Score 50.02 49 50 Depression Domain T Score 48.65 45 46 Stigma Domain T Score 58.51 59 63 Emotional Behavior Dyscontrol T Score -- -- -- *NeuroQoL is a multi-domain patient-reported quality of life questionnaire. PHQ-9 Flowsheet [facility] Office Visit from 03/06/2023 in Neurology Office Visit from 01/26/2023 in Neurology PHQ-9 Score 4 6 *PHQ-9 is a questionnaire for depressive symptoms, with scores 0-4 indicating none, 5-9 mild, 10-14 moderate, 15-19 moderately severe, and 20-27 severe symptoms. PROMIS-10 Flowsheet [facility] Office Visit from 03/06/2023 in Neurology Office Visit from 12/03/2022 in Neurology Global Physical Health T Score 37.4 37.4 Global Mental Health T Score 50.8 45.8 0-10 Standard Pain Scale 3 3 *PROMIS-10 is a patient-reported quality of life measure, typically reported as physical and mental domains. Here scores are expressed as percentiles, where the lowest possible score is one, the highest possible score is 99, and 50 is average. Refer to patient-entered data. Mood: PHQ9 responses reviewed and appear below - stable graduating from counseling. Met all the goals. Still will be following with psychiatry Pain related to today's visit:reviewed on nursing intake documentation PAST HISTORY was reviewed and updated: PAST MEDICAL HISTORY Diagnosis Date Anxiety and depression Anxiety and depression Atrial fibrillation (HCC) Cardiomyopathy (HCC) Cervical myelopathy (HCC) CHF (congestive heart failure) (HCC) Cognitive impairment Colitis COPD (chronic obstructive pulmonary disease) (HCC) Diabetes (HCC) Dyslipidemia GI bleed History of loop recorder Hypertension IBS (irritable bowel syndrome) Multiple sclerosis (HCC) Myocardial infarct, old 03/2016 Obesity Pancreatitis 1978 Renal insufficiency RLS (restless legs syndrome) Tobacco dependence Urinary incontinence PAST SURGICAL HISTORY Procedure Laterality Date BACK SURGERY HX lower x3 CARPAL TUNNEL lt and rt COLONOSCOPY FLX DX W/COLLJ SPEC WHEN PFRMD 10/12/2014 Colonoscopy inpt [facility] COLONOSCOPY FLX DX W/COLLJ SPEC WHEN PFRMD 02/28/2015 Colonoscopy FINGER SURGERY HX thumb reconstructed KNEE SURGERY HX lt x2 PAST SURGICAL HISTORY OF partial amputation of big toe PAST SURGICAL HISTORY OF Left 01/25/2015 great toe removal PAST SURGICAL HISTORY OF Bilateral 08/2022 C3 and C6 nerve ablasions TONSILLECTOMY HX TUBAL LIGATION HX MEDICATIONS and ALLERGIES were reviewed and updated. SOCIAL HISTORY was reviewed and updated: Social History Tobacco Use Smoking status: Every Day Packs/day: 0.50 Years: 30.00 Additional pack years: 0.00 Total pack years: 15.00 Types: Cigarettes Start date: 01/04/1973 Smokeless tobacco: Never Tobacco comments: Less than 10 Living situation: Living at home without assistance Employment Status / Disability: Disabled, permanently or temporarily OBJECTIVE: VITALS & WELLNESS: BP 107/52 Pulse 70 Ht 157.5 cm (5' 2) Wt 70.3 kg (155 lb) LMP 02/22/2000 (Approximate) BMI 28.35 kg/m MSPT Performance Tests 01/29/2023 11/14/2021 -- Processing Speed Total Number Correct 34 31 Low-contrast letter acuity test-2.5 percent opacity 27 Low-contrast letter acuity test-100 percent opacity 60 MDT Left Hand Time 34.09 MDT Right Hand Time 32.62 Walking Speed Test (25 feet) 12.8 EXAM: General Appearance: well appearing, in no acute distress Mental status evaluation during the interview and examination showed Reported difficulties: memory word finding concentration / attention Affect: Normal Extraocular movements: full, without SAMINA Speech: normal Muscle strength (#/5): Right Left Upper Extremity: Deltoids 5 5 Biceps 5 5 Triceps 5 5 Safety Specialist 5 5 Dorsal interossei 4+ 4+ Lower extremity: Iliopsoas 4+ 4+ Quadriceps 5 5 Hamstrings 5 5 Tibialis anterior 5 5 Gastrocnemius 5 5 Coordination: Upper extremity dexterity and rapid movements: Impaired left Finger-nose: no dysmetria; coordination intact Standing balance: Impaired Standard gait: wide-based, unsteady. Assistive device: rollator RESULTS: Monitoring labs: CBC + Diff Component Value Date WBC 7.50 06/24/2023 HB 15.0 06/24/2023 HCT 47.2 (H) 06/24/2023 PLT 208 06/24/2023 ABSLYMPH 1.91 06/24/2023 CMP Component Value Date AST 11 (L) 07/27/2023 GLUC 202 (H) 07/27/2023 BUN 17 07/27/2023 CREAT 0.60 07/27/2023 NA 135 (L) 07/27/2023 K 3.7 07/27/2023 CHLOR 102 07/27/2023 ALT 10 07/27/2023 No results found for: JCVAB, JCVIND Discrete MRI Results Component Value Date Brain New T2 Lesions None Site 07/27/2023 Brain Enhancing Lesions Not applicable 07/27/2023 Cervical Spine New T2 Lesions None 08/22/2022 Cervical Spine New T2 Lesions None 08/22/2022 Cervical spine enhancing lesions None 08/22/2022 Cervical spine enhancing lesions None 08/22/2022 ASSESSMENT/PLAN: Elo Gray is a 67 year old female with Multiple Sclerosis. Patient is on Kesimpta for DMT. Reports increase in face rash (saw derm and felt to be folliculitis - treated with doxycycline). Will trial a drug holiday from Kesimpta x 3 months to see if any change/improvement in skin condition. Continue to follow with dermatology. Brain MRI from 07/27/23 reviewed and appears stable. Continue to monitor annually or sooner if needed. MRI of the brain and/or spinal cord is being ordered to evaluate for efficacy of multiple sclerosis (MS) disease modifying therapy. Disease activity in MS is often not immediately detectable on history or examination, but is sensitively identified on MRI. If identified, new or active MS lesions on MRI may represent suboptimal response to MS therapy, and would change medical management. Denies new MS symptoms. Patient stopped calcium supplement after labs in May showed elevated calcium. Results were forwarded to endocrinology and she will follow-up with PCP next month as well. Continue to follow with specialists as directed. Patient Health Education Discussed at Visit: Aerobic exercise, Emotional Health/Wellness, Risks and Common side effects of MS medications, Stretching, and Vitamin D supplementation Follow-up: In 3 months at [place] [facility], or Virtual Visit with [facility] I spent a total of 45 minutes on the date of the service which included preparing to see the patient, [id number] patient care, completing clinical documentation, obtaining and/or reviewing separately obtained history, performing a medically appropriate examination, counseling and educating the patient/family/caregiver, ordering medications, tests, or procedures, and communicating results to the patient/family/caregiver. The patient was seen with Dr. Kinsey. Bill Woods PA-C The chart was reviewed for possible participation in the following studies:None documented in this encounter [facility] 07-31-2023 Miscellaneous Notes Patient returned call to office, verified name and . Patient states she injected Kesimpta last Thursday and started Doxycycline Thursday. She has worse breakout on her face now, she indicates the breakout never clears between doses but significantly worsens for the week after each injection. She is inquiring if longer course of Doxycycline may be recommended and what [place] Care Team's thoughts are. She is scheduled for In Person follow up next 08-05-23 with Bill Woods PA-C. She also plans to schedule follow up visit with Management Tra[employer] Dr Soria who prescribes the Doxycycline. Patient also reports ongoing intermittent worse slurred speech that she can now correlate to the 4-5 days after each Kesimpta injection as well. She indicates slurred speech has resolved as of Thursday this week after her injection last Thursday. Encouraged patient to review further at office visit with Bill next week. Routing to Bill Woods PA-C to advise ahead of visit. Maribell Cunha RN Called patient, no answer. Message left to return call to office when able. Maribell Cunha RN [place] Call Name of caller : Elo Gardner Relationship to patient: Self Return call phone number : [phone] Reason for call : Medication : Name : Kesimpta Questions/concern : Patient says she is having a reaction to the Kesimpta. It is causing her face to break out. documented in this encounter [facility] 07-27-2023 History of Present illness Narrative Radiology Service Progress Note PATIENT NAME: Elo Gray DATE OF SERVICE: July 27, 2023 TIME: 8:43 AM PATIENT IDENTITY VERIFICATION COMPLETED USING TWO (2) IDENTIFIERS: Name and Date of confirmed by patient verbally. FALL SCREENING: Has the patient had 2 falls in the last year or 1 fall with injury or currently using an Ambulatory Assistive Device (Walker, Cane, Wheelchair, Crutches, etc.)? Yes, Patient High Risk for Falls What interventions were put in place to prevent falls during this visit? Instructed Patient to Call for Help if Needed, Offered Assistance with Transfers/Clothing, Instructed Patient to Remain Seated (Not on Exam Table) Until Exam, and Increased Observations by Caregivers PATIENT GENDER DATA: Female. status: : No status: NO. PATIENT RELEVANT IMPLANT DATA REVIEWED: Not Applicable PATIENT PRESENTS WITH AN IMPLANTABLE OR ATTACHED MARKETING PROFESSOR: No RADIOLOGY DEPARTMENT: MR; Exam(s) Completed: Head: Multiple Sclerosis Spine: Lumbar spine PERIPHERAL IV DATA: Not applicable SIGNED BY: RT Dann(R) July 27, 2023 8:43 AM documented in this encounter [facility] 07-22-2023 History of Present illness Narrative [facility] Refill Assessment Medication(s): Kesimpta Patient's current medication list and adherence status to current therapy were reviewed by Specialty Pharmacy clinical pharmacist to identify any new drug interactions or non-compliance to therapy. Therapy continues to be appropriate for disease, patient response, and medical condition. Verification of therapeutic benefit and effectiveness with current therapy was completed. Adverse events, barriers in adherence, and side effects were assessed and addressed if applicable. Will proceed with refill with no changes in therapy - patient progressing towards achieving therapeutic goals based on medication-specific laboratory parameters, disease state markers and outcomes. Payroll Services Analyst Assessment Patient confirmed: Yes Med/dose confirmed: Yes Supplies needed: No supplies needed Missed doses: No Estimated days supply on hand: 0 Next cycle/dose due: 08/03/23 Copay amount: 0 Payment confirmed: Yes Delivery method: FedEx Signature required: No Delivery address: [place] [address] Delivery date: 07/31/23 Questions or concerns for the pharmacist?: No Current Outpatient Medications on File Prior to Visit Medication Sig ofatumumab (KESIMPTA PEN) 20 mg/0.4 mL injection Inject 1 pen (0.4mL) under the skin once monthly cyclobenzaprine (FLEXERIL) 5 mg tablet Take 1 tablet by mouth two times a day as needed for muscle spasm. lidocaine (LIDODERM) 5 % Apply 1 Patch as directed once daily. TO AFFECTED AREA. REMOVE AFTER 12 HOURS. doxycycline hyclate (VIBRAMYCIN) 100 mg capsule Take 100 mg by mouth two times a day. flash glucose scanning reader (OnSwipe JANAY 3 READER) Dispense one reader kit. USE FOR CONTINUOUS GLUCOSE MONITORING. Multiple insulin injections. E11.9 semaglutide (OZEMPIC) 1 mg/dose (4 mg/3 mL) pen Inject 1 mg subcutaneously one time a week. tirzepatide (MOUNJARO) 5 mg/0.5 mL pen injector Inject 5 mg subcutaneously one time a week. ramelteon (ROZEREM) 8 mg tablet Take 8 mg by mouth at bedtime as needed. CPAP/BIPAP/OTHER Discontinue bilevel PAP (Patient not taking: Reported on 06/24/2023) Blood-Glucose Sensor (FREESTYLE JANAY 3 SENSOR) aubrey Change sensor every 14 days. USE FOR CONTINUOUS GLUCOSE MONITORING. Multiple insulin injections. E11.9 modafinil (PROVIGIL) 200 mg tablet Take 1 tablet by mouth once daily for 180 days. doxycycline monohydrate (MONODOX) 100 mg capsule Take 1 capsule by mouth two times a day. When needed for a flare-up. mupirocin (BACTROBAN) 2 % ointment Apply to wound twice daily until healed. losartan (COZAAR) 50 mg tablet 50 mg twice daily. carvedilol (COREG) 12.5 mg tablet Take 12.5 mg by mouth twice daily with meals. insulin lispro (HUMALOG KWIKPEN INSULIN) 100 unit/mL Use with meals based on PRE meal blood sugar SLIDING SCALE as needed #1 (1 for 50 over 150) ~20 units daily FARXIGA 10 mg tablet Take 1 tablet by mouth every morning. donepezil (ARICEPT) 10 mg tablet Take 2 tablets by mouth once daily. Insulin Scarbro, Disposable, (BD ULTRAFINE III MINI PEN) 31 gauge x 3/16 Uses 4 per day with insulin injection. flash glucose sensor (FREESTYLE JANAY 2 SENSOR) kit Change sensor every 14 days. USE FOR CONTINUOUS GLUCOSE MONITORING. MULTIPLE INSULIN INJECTIONS. E11.9 Alosetron HCl 0.5 mg tablet (Patient not taking: Reported on 06/24/2023) cyanocobalamin (VITAMIN B-12) 1,000 mcg tab Take 1 tablet by mouth once daily. QUEtiapine (SEROQUEL) 50 mg tablet Take 100 mg by mouth daily at bedtime. ondansetron (ZOFRAN) 4 mg tablet Take 1 tablet by mouth every 8 hours as needed for nausea/vomiting. isosorbide mononitrate ER (IMDUR) 30 mg 24 hr tablet Take 1 tablet by mouth once daily. ferrous sulfate 325 mg (65 mg iron) tablet Take 1 tablet by mouth every 48 hours. rOPINIRole (REQUIP) 1 mg tablet Take 2 mg by mouth daily at bedtime. acetaminophen (TYLENOL) 500 mg tablet Take 500 mg by mouth every 6 hours as needed for pain. apixaban (ELIQUIS) 5 mg tab(s) Take 5 mg by mouth twice daily. albuterol HFA (PROVENTIL HFA, VENTOLIN HFA) 90 mcg/actuation inhaler Inhale 2 Puffs as instructed every 4 hours as needed for wheezing/shortness of breath. vibegron (GEMTESA) 75 mg tablet Take 75 mg by mouth once daily. nitroglycerin sublingual (NITROQUICK) 0.4 mg SL tablet Dissolve 0.4 mg under the tongue every 5 minutes as needed. [DISCONTINUED] teriflunomide (AUBAGIO) 14 mg TAKE 1 TABLET BY MOUTH ONCE DAILY. pioglitazone (ACTOS) 30 mg tablet Take 30 mg by mouth once daily. pantoprazole DR (PROTONIX) 40 mg tablet Take 40 mg by mouth once daily. DULoxetine (CYMBALTA) 30 mg capsule Take 30 mg by mouth twice daily. dicyclomine (BENTYL) 20 mg tablet Take 20 mg by mouth twice daily as needed. PROLIA 60 mg/mL once every 6 months. calcium carbonate (CALTRATE) 600 mg calcium (1,500 mg) tab Take 600 mg by mouth once daily. atorvastatin (LIPITOR) 40 mg tablet Take 40 mg by mouth once daily. ascorbic acid, vitamin C, (VITAMIN C) 500 mg tablet Take 1 tablet by mouth once daily. sucralfate (CARAFATE) 1 gram tablet Take 1 tablet by mouth four times daily. hydrOXYzine HCl (ATARAX) 50 mg tablet Take 1 tablet by mouth three times daily as needed. (Patient taking differently: Take 50 mg by mouth two times a day.) Cholecalciferol, Vitamin D3, 5,000 unit cap Take 1 capsule by mouth once daily. rOPINIRole (REQUIP) 1 mg tablet Take 1 mg by mouth daily with lunch. aspirin, enteric coated (ASPIRIN, ENTERIC COATED) 81 mg EC tablet Take 81 mg by mouth once daily. No current facility-administered medications on file prior to visit. [facility] Visit Assessment - Neurology: Assessment to use: Refill Vaccination Assessment: Date of influenza vaccination reminder: 01/20/2023 Date of most recent vaccination assessment: 01/20/2023 Sarita Ramos CPhT Cardiology, Neurology & Infectious Disease [facility] documented in this encounter [facility] 07-21-2023 Miscellaneous Notes The following approved medication requests have been transmitted electronically. Requested Prescriptions Signed Prescriptions Disp Refills ofatumumab (KESIMPTA PEN) 20 mg/0.4 mL injection 1.2 mL 2 Sig: Inject 1 pen (0.4mL) under the skin once monthly Authorizing Provider: JAKE KINSEY Ordering User: BILL WOODS PA-C Patient is in need of a new prescription as follows: Requested Prescriptions Pending Prescriptions Disp Refills ofatumumab (KESIMPTA PEN) 20 mg/0.4 mL injection 1.2 mL 2 Sig: Inject 1 pen (0.4mL) under the skin once monthly Last office visit 06-24-23 Please review and advise. Efren Keen RPh documented in this encounter [facility] 07-13-2023 Miscellaneous Notes Ms. Gray's refill requests to Dr. Webb was completed and Dr. Webb e-prescribed them to her pharmacy on 07/10/23 at 6:00 PM. Ms. Gray's request for refills for flexeril and lidocaine patches was sent to Dr. Webb in a separate refill encounter. documented in this encounter [facility] 07-10-2023 Miscellaneous Notes Refilled wth total 3 monthnsupplyneach Patient last seen on 04/13/23 Last refill on 05/15/23 flexeril and 04/13/23 lidocaine patches. Patient phones requesting refills as follows: Requested Prescriptions Pending Prescriptions Disp Refills cyclobenzaprine (FLEXERIL) 5 mg tablet 40 tablet 1 Sig: Take 1 tablet by mouth two times a day as needed for muscle spasm. lidocaine (LIDODERM) 5 % 30 Patch 2 Sig: Apply 1 Patch as directed once daily. TO AFFECTED AREA. REMOVE AFTER 12 HOURS. Please review and advise. Leandra Maguire documented in this encounter [facility] 06-24-2023 History of Present illness Narrative Images from the original note were not included. [facility] FOR MULTIPLE SCLEROSIS FOLLOWUP/ESTABLISHED PATIENT VISIT PRINCIPAL NEUROLOGIC DIAGNOSIS: Multiple sclerosis DISEASE SUMMARY Date of onset: 12/1998 Date of diagnosis of MS: 1998 Disease course at onset: Progressive with relapses Current disease course: Progressive with relapses Previous disease therapies: Glatiramer acetate 2002, [id number], [id number] Fingolimod 07/2014-04/2016 (switched because of heart issues - had heart attack) Teriflunomide 7 mg 04/2016-10/2016 Prednisone x 10 days 03/2017 IVMP 01/25/17 x 1 dose Teriflunomide 14 mg daily Current disease therapy: Kesimpta (started 01/2022) Most recent MRI brain: 08/22/22 Most recent MRI cervical spine: 08/22/22 Most recent MRI thoracic spine: 08/22/22 CSF: 1998 JCV serology result and date: NA CHIEF COMPLAINT: Follow-up on MS disease modifying therapy INTERVAL HISTORY: Usual treating team: Pako/Carlos The patient is accompanied by self. The patient was last seen 01/29/23, currently taking Kesimpta . Reports 3 falls recently - 2 falls in April (one over air and the other when trying to sit in a recliner at [facility]) - most recent fall on Thursday (hit forehead), called squad (has alert necklace). Thursday went to cardiology for follow-up. They ordered/completed CT head because she is on blood thinners Was having slurred speech, urinary frequency when called office on 06/12. She was evaluated by PCP later that day - urine dipstick checked in office and urine cultured - urine culture was normal but was also on doxycycline for face at that time Frequency has improved Reports feeling very depressed on Thursday Called 988 but put on hold and hung up after 5 mins Right as she hung up other SHELLI called her and they talked for a while which helped SHELLI on Thursday which she feels triggered the worsening mood Does have psychiatry and counseling (July 05 follow-up) who she routinely follows with Feeling better today, denies SI Was on Ozempic, backordered so switched to Mounjaro. Switches back and forth based on availability Last saw Dr. Soria (derm) in January. Takes doxycycline when face sores occur. May need longer course according to nurse at [facility]? Plans to schedule follow-up with dermatology to discuss Doesn't need CPAP anymore because she has lost weight. Did a repeat sleep study and has been assessed by sleep medicine (Dr. Sher) Knitting to try to quit smoking - back down to less than 1 pack a day (was up to almost 2 packs per day) Still in PT and works on strengthening SUBJECTIVE & REVIEW OF SYSTEMS: Neuro-QoL Functions (higher=better functioning) Flowsheet [facility] Office Visit from 01/29/2023 in [facility] Office Visit from 01/14/2023 in Neurology Office Visit from 09/03/2022 in Neurology Upper Extremity Domain T Score 36.77 41 43 Lower Extremity Domain T Score 41.61 39 39 Cognitive Function Domain T Score 36.84 40 40 Positive Affect Well Being T Score -- -- -- Ability To Participate In Social Roles T Score 38.47 42 42 Satisfaction With Social Roles T Score 41.97 45 46 Neuro-QoL Symptoms (higher=worse symptoms) Flowsheet [facility] Office Visit from 01/29/2023 in [facility] Office Visit from 01/14/2023 in Neurology Office Visit from 09/03/2022 in Neurology Sleep Domain T Score 62 61 63 Fatigue Domain T Score 52.38 54 60 Anxiety Domain T Score 50.02 49 50 Depression Domain T Score 48.65 45 46 Stigma Domain T Score 58.51 59 63 Emotional Behavior Dyscontrol T Score -- -- -- *NeuroQoL is a multi-domain patient-reported quality of life questionnaire. PHQ-9 Flowsheet [facility] Office Visit from 03/06/2023 in Neurology Office Visit from 01/26/2023 in Neurology PHQ-9 Score 4 6 *PHQ-9 is a questionnaire for depressive symptoms, with scores 0-4 indicating none, 5-9 mild, 10-14 moderate, 15-19 moderately severe, and 20-27 severe symptoms. PROMIS-10 Flowsheet [facility] Office Visit from 03/06/2023 in Neurology Office Visit from 12/03/2022 in Neurology Global Physical Health T Score 37.4 37.4 Global Mental Health T Score 50.8 45.8 0-10 Standard Pain Scale 3 3 *PROMIS-10 is a patient-reported quality of life measure, typically reported as physical and mental domains. Here scores are expressed as percentiles, where the lowest possible score is one, the highest possible score is 99, and 50 is average. Refer to patient-entered data. Mood: PHQ9 responses reviewed and appear below Bladder: See HPI Pain related to today's visit:reviewed on nursing intake documentation PAST HISTORY was reviewed and updated: PAST MEDICAL HISTORY Diagnosis Date Anxiety and depression Anxiety and depression Atrial fibrillation (HCC) Cardiomyopathy (HCC) Cervical myelopathy (HCC) CHF (congestive heart failure) (HCC) Cognitive impairment Colitis COPD (chronic obstructive pulmonary disease) (HCC) Diabetes (HCC) Dyslipidemia GI bleed History of loop recorder Hypertension IBS (irritable bowel syndrome) Multiple sclerosis (HCC) Myocardial infarct, old 03/2016 Obesity Pancreatitis 1978 Renal insufficiency RLS (restless legs syndrome) Tobacco dependence Urinary incontinence PAST SURGICAL HISTORY Procedure Laterality Date BACK SURGERY HX lower x3 CARPAL TUNNEL lt and rt COLONOSCOPY FLX DX W/COLLJ SPEC WHEN PFRMD 10/12/2014 Colonoscopy inpt [facility] COLONOSCOPY FLX DX W/COLLJ SPEC WHEN PFRMD 02/28/2015 Colonoscopy FINGER SURGERY HX thumb reconstructed KNEE SURGERY HX lt x2 PAST SURGICAL HISTORY OF partial amputation of big toe PAST SURGICAL HISTORY OF Left 01/25/2015 great toe removal PAST SURGICAL HISTORY OF Bilateral 08/2022 C3 and C6 nerve ablasions TONSILLECTOMY HX TUBAL LIGATION HX MEDICATIONS and ALLERGIES were reviewed and updated. SOCIAL HISTORY was reviewed and updated: Social History Tobacco Use Smoking status: Every Day Packs/day: 0.50 Years: 30.00 Additional pack years: 0.00 Total pack years: 15.00 Types: Cigarettes Start date: 01/04/1973 Smokeless tobacco: Never Tobacco comments: Less than 10 Living situation: Living at home without assistance Employment Status / Disability: Disabled, permanently or temporarily OBJECTIVE: VITALS & WELLNESS: BP 111/63 Pulse 74 Resp 18 Ht 157.5 cm (5' 2) Wt 68 kg (150 lb) LMP 02/22/2000 (Approximate) BMI 27.44 kg/m MSPT Performance Tests 01/29/2023 11/14/2021 Processing Speed Total Number Correct 34 31 Low-contrast letter acuity test-2.5 percent opacity 27 - Low-contrast letter acuity test-100 percent opacity 60 - Dominant hand - - MDT Left Hand Time 34.09 - MDT Right Hand Time 32.62 - Walking Speed Test (25 feet) 12.8 - EXAM: General Appearance: well appearing, in no acute distress Mental status evaluation during the interview and examination showed Reported difficulties: memory word finding concentration / attention Affect: Normal Extraocular movements: full, without SAMINA Speech: normal Muscle strength (#/5): Right Left Upper Extremity: Deltoids 5 5 Biceps 5 5 Triceps 5 5 Safety Specialist 5 5 Dorsal interossei 4+ 4+ Lower extremity: Iliopsoas 4+ 4+ Quadriceps 5 5 Hamstrings 5 5 Tibialis anterior 5 5 Gastrocnemius 5 5 Coordination: Upper extremity dexterity and rapid movements: Impaired left Finger-nose: no dysmetria; coordination intact Standing balance: Impaired Standard gait: wide-based, unsteady. Assistive device: rollator RESULTS: Monitoring labs: CBC + Diff Component Value Date WBC 7.50 06/24/2023 HB 15.0 06/24/2023 HCT 47.2 (H) 06/24/2023 PLT 208 06/24/2023 ABSLYMPH 1.91 06/24/2023 CMP Component Value Date AST 16 06/24/2023 GLUC 177 (H) 06/24/2023 BUN 26 (H) 06/24/2023 CREAT 0.86 06/24/2023 NA 143 06/24/2023 K 4.7 06/24/2023 CHLOR 107 (H) 06/24/2023 ALT 12 06/24/2023 No results found for: JCVAB, JCVIND Discrete MRI Results Component Value Date Brain New T2 Lesions None 08/22/2022 Brain New T2 Lesions None 08/22/2022 Brain Enhancing Lesions None 08/22/2022 Brain Enhancing Lesions None 08/22/2022 Cervical Spine New T2 Lesions None 08/22/2022 Cervical Spine New T2 Lesions None 08/22/2022 Cervical spine enhancing lesions None 08/22/2022 Cervical spine enhancing lesions None 08/22/2022 ASSESSMENT/PLAN: Elo Gray is a 67 year old female with Multiple Sclerosis. Patient is on Kesimpta for DMT. Reports good tolerance and compliance. Will obtain labs today. Recommend updated brain MRI in about 2-3 months (or can coordinate with lumbar spine MRI ordered by Dr. Webb). MRI of the brain and/or spinal cord is being ordered to evaluate for efficacy of multiple sclerosis (MS) disease modifying therapy. Disease activity in MS is often not immediately detectable on history or examination, but is sensitively identified on MRI. If identified, new or active MS lesions on MRI may represent suboptimal response to MS therapy, and would change medical management. Continues to follow with specialists (machine filler, pain management, dermatology, cardiology, spine) and PCP. Discussed recent mental health/depression. Encouraged continuing with psychiatry and sooner counseling session if needed. Discussed can call or text [phone] number in the future if needed. Encouraged continued efforts with health and wellness and smoking cessation. Continue PT. Exam is:Stable, continue with current IMDT. The prescribed disease modifying therapy for MS is having the expected benefit in this patient based on imaging and clinical criteria, and will be continued or refilled, with planned follow-up at approximately 6-month intervals to continue to assess response on an ongoing basis. Patient Health Education Discussed at Visit: Aerobic exercise, Emotional Health/Wellness, Risks and Common side effects of MS medications, Smoking Cessation, and Stretching Follow-up: In 3 months at [facility] I spent a total of 35 minutes on the date of the service which included preparing to see the patient, [id number] patient care, completing clinical documentation, obtaining and/or reviewing separately obtained history, performing a medically appropriate examination, counseling and educating the patient/family/caregiver, ordering medications, tests, or procedures, and communicating results to the patient/family/caregiver. Bill Woods PA-C The chart was reviewed for possible participation in the following studies:None documented in this encounter [facility] 06-16-2023 History of Present illness Narrative Images from the original note were not included. [facility] Pre-Procedure Note Patient Name: Elo Gray Room 9 SUBJECTIVE: Elo Gray is a 67 year old woman who presents to [facility] for medication update, medications, and status encounter. TPIs have been helping immensely with pain and function as well as activity level and ability to decrease cigarette use. Knitting hats which keep her hands busy and have helped with efforts to stop smoking. Recently fell without serious injury except eschar on her knee. The pain is located in the upper back and trapezius muscles bilaterally and lower back pain on both sides and somewhat laterally. Ms. Gray has been compliant with medications and requires refill #16 Percocet x at least 3 months. Script sent and printed. She appreciates physiotherapy and wants to work on neck core, lower back strengthening and conditioning, and posture with hip girdle assessment and therapy and requires a new 2023 script. Script sent and printed for Ms. Gray. MS is stable although she was having some speech difficulties last week, possibly exacerbated by a UTI, now improved with doxycycline. Symptoms have resolved. Hgb A1c 6.4. Encouraged continued vigilance. Current pain intensity is 6 out of 10. INTAKE PAIN ASSESSMENT 04/13/2023 06/16/2023 Are you having pain associated with your visit today? No Yes, Provider notified Pain Scales Verbal (Numeric Rating or Visual Analog Scale) Verbal (Numeric Rating or Visual Analog Scale) Pain Level 5 (No Data) Pain Location Back-Middle Neck Description Aching Aching Duration Amount of Time 3 - Duration Units Months Years Frequency Continuous Continuous Intervention/Comfort measure Medication;Cold;Exercise;Heat;Mas shireen;Therapeutic techniques-CPRP Medication Comments - - Pain Assessment - - Breathing Independent of Vocalization - - Negative Vocalization - - Facial Expression - - Body Language - - Consolability - - PAINAD Score - - Patient denies any contraindications to the procedure including , coagulopathy, infection, recent cerebral/myocardial infarct, and hemodynamic instability. Pain medications reviewed: Yes OBJECTIVE: BP 128/53 Pulse 69 Temp 36.5 C (97.7 F) (Temporal) Ht 157.5 cm (5' 2) Wt 74.4 kg (164 lb) LMP 02/22/2000 (Approximate) SpO2 98% BMI 30.00 kg/m Significant changes in the patient's condition since the History and Physical: No INFORMED CONSENT: The procedure, risks, benefits and options were discussed with patient. There are no contraindications to the procedure. The patient expressed understanding and agreed to proceed. The personnel performing the procedure was discussed. I verify that I personally obtained Elo Gray's consent prior to the start of the procedure and the signed consent can be found on the patient's chart. UNIVERSAL PROTOCOL / SAFETY CHECKLIST Procedure to be Performed: TPIs Sign In: A Moment of CARE was completed. Personnel directly involved with the procedure wore the appropriate PPE (Personal Protective Equipment). Patient/Surrogate Stated/Verified: PATIENT VERIFIED(optional for EMERGENT procedures): Patient name, Date of , Relevant allergies, and The intended procedure Time Out Communication: Intended patient and procedure match the source documents. Consent documented and matches the intended procedure. Sign Out: SIGN OUT (optional for EMERGENT procedures): No specimen collected. Heather Davis MD PROCEDURE: TRIGGER POINT INJECTIONS - lumbar paraspinal mm, trapezius mm, gluteus minimus muscles Position: sitting Sites of pain confirmed prior to procedure Skin prepped with alcohol Needle: 25g 1.5 Q and 25g 5/8 Q Negative aspiration for heme, air, CSF at all times and depths LA: bupiv 0.25% Approximate total volume of local anesthetic: 20 ml No complications were evident. No specimens collected. No paresthesias elicited. No heme She tolerated the procedure well without apparent complications. [facility] Post-Procedure Note Patient name: Elo Gray Pre Procedure diagnosis: (M79.18) Myofascial pain syndrome of lumbar spine (primary encounter diagnosis) (G89.29) Other chronic pain (G35) MS (multiple sclerosis) ([facility]) (E11.69) Type 2 diabetes mellitus with other specified complication, without long-term current use of insulin (HCC) (M79.18) Myofascial pain (M54.50) Lumbar pain (R29.3) Abnormal posture (M54.2, G89.29) Neck pain, chronic (M54.6) Thoracic spine pain (M40.294) Other kyphosis of thoracic region Post-Procedure diagnosis: same ASSESSMENT: Purposeful response to verbal or tactile stimulation: yes Neurological Status: Alert and oriented x 3 Awake, moving all extremities Post Procedure Pain Level: 0 on a scale of 0-10. Postoperative Nausea/Vomiting (PONV): absent ASSESSMENT: Patient has been compliant with opioids. Using medication as prescribed. For MS-related pain and spine pain, not for myofascial pain. No SE noted nor reported. Alert and oriented without any s/s disorientation nor sedation. No miosis. Medication allows patient to remain functional even on days with severe pain. Agree with continued judicious, prn use. R/b/a reviewed and agreed upon. Script sent for 3 months (at least). Wishes to c/w PT and needs a new script. Medication allows for her participation in PT as well. Script entered and printed for Ms Gray. Q/C A/A to Ms Gray's satisfaction. PLAN: 1) s/p trigger point injections. 2) Script sent for Percocet #16 to last at least 3 months. 3) PT script entered and printed. 4) RTC 6-8 weeks for upper and lower TPIs and status update on MS. 5) Encouraged smoking cessation. 6) The treatment plan was discussed with the patient. Post procedure instructions were reviewed and the patient voiced understanding. 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 yes documented in this encounter [facility] 06-12-2023 Miscellaneous Notes Patient returned call to office, verified name and . Patient reports she has noticed worsening speech, increased fatigue, and unsteady gait the past 2 days typical of past MS symptoms. She also fell twice, denies injury. She has urinary frequency and believes she may have UTI. Reviewed that typical MS symptoms can temporarily worsen in the setting of an infection such as a UTI. She is scheduled to see her PCP today at 2:30. Encouraged patient to increase hydration and void every 4 hours minimum while awake, she states that's no problem, I am going every hour right now anyway. Encouraged patient to update office on outcome of visit especially if negative for UTI for further guidance. She reports she took her maintenance dose of Kesimpta on Thursday06-08-23 and felt especially crappy Thursday and Thursday. Routing to Bill Woods PA-C to update. Maribell Cunha RN Called patient, no answer. Message left to return call to office when able. Maribell Cunha RN Ramin Call Name of caller : Elo Relationship to patient: Self Return call phone number : [phone] Reason for call : Patient would like a call back. Did not specify the reason. 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 yes documented in this encounter [facility] 04-03-2023 History of Present illness Narrative Images from the original note were not included. [facility] Pre-Procedure Note Patient Name: Elo Gray Room 20 SUBJECTIVE: Elo Gray is a 67 year old woman who presents to [facility] for evaluation, status update, discussion about medications, and persistent myofascial pain. Returned a week ago yesterday from [facility]. Had a wonderful time with great weather. Overall she's doing better except for neck pain. Myofascial pain persists in neck and we will proceed with TPIs today. Takes Eliquis - hasn't taken it for 3 days (patient decision; stopped on her own). 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 Reports only used 2 Percocet while in [place]. Cut them in half and used judiciously. Helped with pain and function and allowed her to enjoy vacation. Reports she smoked only 6 packs (120 cigarettes) during the 14 days she was in [facility]. Getting dentures in April 2023. FHP is severe with extremely exaggerated thoracic kyphosis and straightening of cervical lordosis. Would like PT script to work on improvement. Will repeat as/if needed with TPIs for extreme muscle strain and asymmetry due to posture abnormality. Patient went to Dr. Sevilla's office 03/27/23 and signed for release of records. None as of today in scanned documents. Patient reports she does NOT have sleep apnea - scanned polysomnogram in chart. Encouraged again to stop smoking completely. The myofascial pain is located in the neck, upper back, and trapezius area without radiation. Patient denies any contraindications to the procedure including , coagulopathy, infection, recent cerebral/myocardial infarct, and hemodynamic instability. OBJECTIVE: BP 138/55 Pulse 64 Temp 36.2 C (97.1 F) (Temporal Artery) Resp 16 Ht 157.5 cm (5' 2) Wt 68 kg (150 lb) LMP 02/22/2000 (Approximate) SpO2 94% BMI 27.44 kg/m Significant changes in the patient's condition since the History and Physical: No INFORMED CONSENT: The procedure, risks, benefits and options were discussed with patient. There are no contraindications to the procedure. The patient expressed understanding and agreed to proceed. The personnel performing the procedure was discussed. I verify that I personally obtained Elo Neiger's consent prior to the start of the procedure and the signed consent can be found on the patient's chart. UNIVERSAL PROTOCOL / SAFETY CHECKLIST Procedure to be Performed: TPIs Sign In: A Moment of CARE was completed. Personnel directly involved with the procedure wore the appropriate PPE (Personal Protective Equipment). Patient/Surrogate Stated/Verified: PATIENT VERIFIED(optional for EMERGENT procedures): Patient name, Date of , Relevant allergies, and The intended procedure Time Out Communication: Intended patient and procedure match the source documents. Consent documented and matches the intended procedure. Sign Out: SIGN OUT (optional for EMERGENT procedures): No specimen collected. Heather Davis MD PROCEDURE: TRIGGER POINT INJECTIONS - trapezius, SCM, splenius capitus, and occipitalis Position: sitting Sites of pain confirmed prior to procedure Skin prepped with alcohol Needle: 25g 5/8 Q Negative aspiration for heme, air, CSF at all times and depths LA: bupivacaine 0.25% Approximate total volume of local anesthetic: 28 ml No complications were evident. No specimens collected. She tolerated the procedure well without apparent complications. [facility] Post-Procedure Note Patient name: Elo Gray Pre Procedure diagnosis: (M79.18) Myofascial pain (primary encounter diagnosis) (F17.200) Current smoker (M40.294) Other kyphosis of thoracic region (R29.3) Abnormal posture (M62.89) Abnormal increased muscle tightness (F17.200) Tobacco dependence (F41.9, F32.A) Anxiety and depression Post-Procedure diagnosis: same ASSESSMENT: Purposeful response to verbal or tactile stimulation: yes, no Neurological Status: Alert and oriented x 3 Awake, moving all extremities Post Procedure Pain Level: 0 on a scale of 0-10. 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 2) Physiotherapy script entered and provided (printed) 3) RTC 4-6 weeks for repeat as/if needed. 4) Consider CPRP IOP as adjuvant in the future 5) The treatment plan was discussed with the patient. Post procedure instructions were reviewed and the patient voiced understanding. Heather Davis MD documented in this encounter [facility] 03-12-2023 Miscellaneous Notes Notified Pt that her rx for Ozempic was denied by insurance due to national shortage of the ordered dose. Pt states that I am pretty sure Mounjaro is covered, but I will check with my insurance and let you know next week. Pt will be out of town for the next 2 weeks for the holiday. She has enough Ozempic to get her through until she gets back. Tenisha Messer RN documented in this encounter [facility] 03-12-2023 Miscellaneous Notes Spoke to Gabriella @ [facility] Prior Auth department. Pt's rx for Ozempic was denied. Gabriella states that there is a national shortage and ordered dose is unable to be filled at this time. Will speak to Pt re: switching medications per Rosa. 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 No documented in this encounter [facility] 03-11-2023 History of Present illness Narrative [facility] Office Visit - Follow Up Evaluation Reason for visit today: medication discussion, back pain, neck pain, questions Unaccompanied Room: 8 SUBJECTIVE: Patient Entered Questionnaires PROMIS Score Percentiles PROMIS Global Health Scale 07/01/2017 12/02/202203/01/2023 Physical Health Percentile 1 10 10 Mental Health Percentile 2 34 53 Physical Health 01/08/2023 01/15/2023 03/04/2023 Physical Function Percentile 12 - 7 Pain Interference Percentile - 27* 16* Percentiles provide an indication of how the patient's score ranks in relation to the general population. Higher percentile rankings indicate better function/quality of life. 50th percentile is the average of the general population and indicates half of respondents had a worse score. > 31st percentile is within normal limits or better * < 31st percentile is at least SD worse than population, which may be clinically relevant < 16th percentile is at least 1 SD worse than population and warrants attention Ms. Gray was last seen on 12/10/22. The plan from that visit: ASSESSMENT Elo Gray is a 66 year old woman with h/o MS, CTS, CHF, smoking (current), diabetes, paroxysmal atrial fibrillation (Eliquis), RLS, IBS, GIB, lumbar decompression, and cervical fusion who presents with persistent back, knee, and neck pain. Reviewed imaging with Ms. Gray. Strongly encouraged tobacco cessation. Ms. Gray is using her stationary bicycle a couple of times a week. She reports that low-dose and occasional Percocet helps immensely with her pain and allows her to maintain function and QOL. We discussed goals if she is to receive Percocet (prn only) for pain. Ms. Gray agrees to more regular exercise including daily stationary bike use and to cut down on cigarette smoking with eventual cessation. She will continue to f/u for her MS and to continue with other appointments. She is excited to get dentures in February and hearing aids this Thursday. she's getting new glasses. Neurology f/u in January. Many questions addressed and answered to her satisfaction. PLAN : Agreed to 5 Perc per month (15 for 90 days) Earlier use will -> breach of agreement and no more opioids Script for Percocet #15 sent to pharmacy. Copy printed and given to patient. R/b/a re: opioids reviewed carefully. Ms. Gray articulated understanding and agreement. #15 must last at least 90 days. RTC prn with KK. Interval history: Tried to move a [employer] dresser to get to her kitten behind the dresser Her leg hurt She used wheelchair, heat, ice - got better. Mid-back hurts PMR f/u in March Still smoking Reports has been riding bicycle 15 minutes a day and has lost ~ 15 pounds; sleep apnea has resolved A1c dropped from 8.5 to 7.0 Got hearing aids - still working on teeth Going to [facility] [employer]) tomorrow She's here today re: her neck Reports MBBs in the past and RFAs in [place] (no procedure notes) S/p posterior fusion C4-6 2016 Relief x 6 weeks with MBBs RFA May - started hurting ~ 2 weeks ago Doesn't want to go back to them b/c she felt she was just pushed through without adequate time Pain has returned on the left side only; no pain on the right. She will get [facility] records faxed to office b/f next visit. Denies bladder/bowel incontinence, progressive neurologic deficits, fever/chills, or other concerning red flag symptoms or signs. Current Pain Management Treatment Pain medications (efficacy, side effects): Percocet - no more than 5 per month (15 to last at least 3 months) Seroquel; Requip - at night Procedures (%relief, duration): Reported cervical MBBs; RFA - records not in Epic S/p C4-6 posterior fusion Active conservative therapy: No recent PT Riding bicycle daily per patient report Passive conservative therapy: none HISTORY FROM THE ELECTRONIC MEDICAL RECORD Allergies ALLERGIES Allergen Reactions Aspirin Other: See Comments Indomethacin Other: See Comments Abilify [Aripiprazo* Other: See Comments Excessive drooling Clindamycin Intolerance Darvocet A500 [Prop* Intolerance Imitrex [Sumatripta* Vomiting BP went down Iodinated Contrast * Other: See Comments Iodine Intolerance Metformin GI Upset Stomach spasms Propoxyphene Other: See Comments Trazodone Intolerance Unable to wake up Current Medications ramelteon (ROZEREM) 8 mg tablet Take 8 mg by mouth at bedtime as needed. CPAP/BIPAP/OTHER Discontinue bilevel PAP flash glucose scanning reader ([employer] JANAY 3 READER) Dispense one reader kit. USE FOR CONTINUOUS GLUCOSE MONITORING. Multiple insulin injections. E11.9 Blood-Glucose Sensor (FREESTYLE JANAY 3 SENSOR) aubrey Change sensor every 14 days. USE FOR CONTINUOUS GLUCOSE MONITORING. Multiple insulin injections. E11.9 modafinil (PROVIGIL) 200 mg tablet Take 1 tablet by mouth once daily for 180 days. cyclobenzaprine (FLEXERIL) 5 mg tablet Take 1 tablet by mouth two times a day as needed for muscle spasm. semaglutide (OZEMPIC) 1 mg/dose (4 mg/3 mL) pen Inject 2 mg subcutaneously one time a week. Inject two 1mg injections subcutaneously once a week. E11.9. doxycycline monohydrate (MONODOX) 100 mg capsule Take 1 capsule by mouth two times a day. When needed for a flare-up. mupirocin (BACTROBAN) 2 % ointment Apply to wound twice daily until healed. losartan (COZAAR) 50 mg tablet 50 mg twice daily. carvedilol (COREG) 12.5 mg tablet Take 12.5 mg by mouth twice daily with meals. oxyCODONE-acetaminophen (PERCOCET) 5-325 mg tablet 1/2 tab po daily prn pain insulin lispro (HUMALOG KWIKPEN INSULIN) 100 unit/mL Use with meals based on PRE meal blood sugar SLIDING SCALE as needed #1 (1 for 50 over 150) ~20 units daily FARXIGA 10 mg tablet Take 1 tablet by mouth every morning. semaglutide (OZEMPIC) 2 mg/dose (8 mg/3 mL) pen injector Inject 2 mg subcutaneously one time a week. ofatumumab (KESIMPTA PEN) 20 mg/0.4 mL injection Inject 1 pen (0.4mL) under the skin once monthly donepezil (ARICEPT) 10 mg tablet Take 2 tablets by mouth once daily. Insulin Scarbro, Disposable, (BD ULTRAFINE III MINI PEN) 31 gauge x 3/16 Uses 4 per day with insulin injection. flash glucose sensor (FREESTYLE JANAY 2 SENSOR) kit Change sensor every 14 days. USE FOR CONTINUOUS GLUCOSE MONITORING. MULTIPLE INSULIN INJECTIONS. E11.9 Alosetron HCl 0.5 mg tablet (Patient not taking: Reported on 02/18/2023) cyanocobalamin (VITAMIN B-12) 1,000 mcg tab Take 1 tablet by mouth once daily. QUEtiapine (SEROQUEL) 50 mg tablet Take 100 mg by mouth daily at bedtime. ondansetron (ZOFRAN) 4 mg tablet Take 1 tablet by mouth every 8 hours as needed for nausea/vomiting. isosorbide mononitrate ER (IMDUR) 30 mg 24 hr tablet Take 1 tablet by mouth once daily. ferrous sulfate 325 mg (65 mg iron) tablet Take 1 tablet by mouth every 48 hours. rOPINIRole (REQUIP) 1 mg tablet Take 2 mg by mouth daily at bedtime. eluxadoline (VIBERZI) 100 mg tab Take 100 mg by mouth as needed. acetaminophen (TYLENOL) 500 mg tablet Take 500 mg by mouth every 6 hours as needed for pain. apixaban (ELIQUIS) 5 mg tab(s) Take 5 mg by mouth twice daily. albuterol HFA (PROVENTIL HFA, VENTOLIN HFA) 90 mcg/actuation inhaler Inhale 2 Puffs as instructed every 4 hours as needed for wheezing/shortness of breath. vibegron (GEMTESA) 75 mg tablet Take 75 mg by mouth once daily. nitroglycerin sublingual (NITROQUICK) 0.4 mg SL tablet Dissolve 0.4 mg under the tongue every 5 minutes as needed. [DISCONTINUED] teriflunomide (AUBAGIO) 14 mg TAKE 1 TABLET BY MOUTH ONCE DAILY. pioglitazone (ACTOS) 30 mg tablet Take 30 mg by mouth once daily. pantoprazole DR (PROTONIX) 40 mg tablet Take 40 mg by mouth once daily. DULoxetine (CYMBALTA) 30 mg capsule Take 30 mg by mouth twice daily. dicyclomine (BENTYL) 20 mg tablet Take 20 mg by mouth twice daily as needed. PROLIA 60 mg/mL once every 6 months. calcium carbonate (CALTRATE) 600 mg calcium (1,500 mg) tab Take 600 mg by mouth once daily. atorvastatin (LIPITOR) 40 mg tablet Take 40 mg by mouth once daily. ascorbic acid, vitamin C, (VITAMIN C) 500 mg tablet Take 1 tablet by mouth once daily. sucralfate (CARAFATE) 1 gram tablet Take 1 tablet by mouth four times daily. hydrOXYzine HCl (ATARAX) 50 mg tablet Take 1 tablet by mouth three times daily as needed. (Patient taking differently: Take 50 mg by mouth two times a day.) Cholecalciferol, Vitamin D3, 5,000 unit cap Take 1 capsule by mouth once daily. rOPINIRole (REQUIP) 1 mg tablet Take 1 mg by mouth daily with lunch. aspirin, enteric coated (ASPIRIN, ENTERIC COATED) 81 mg EC tablet Take 81 mg by mouth once daily. Past Medical History PAST MEDICAL HISTORY Diagnosis Date Anxiety and depression Anxiety and depression Atrial fibrillation (HCC) Cardiomyopathy (HCC) Cervical myelopathy (HCC) CHF (congestive heart failure) (HCC) Cognitive impairment Colitis COPD (chronic obstructive pulmonary disease) (HCC) Diabetes (HCC) Dyslipidemia GI bleed History of loop recorder Hypertension IBS (irritable bowel syndrome) Multiple sclerosis (HCC) Myocardial infarct, old 03/2016 Obesity Pancreatitis 1978 Renal insufficiency RLS (restless legs syndrome) Tobacco dependence Urinary incontinence Past Surgical History PAST SURGICAL HISTORY Procedure Laterality Date BACK SURGERY HX lower x3 CARPAL TUNNEL lt and rt COLONOSCOPY FLX DX W/COLLJ SPEC WHEN PFRMD 10/12/2014 Colonoscopy inpt [facility] COLONOSCOPY FLX DX W/COLLJ SPEC WHEN PFRMD 02/28/2015 Colonoscopy FINGER SURGERY HX thumb reconstructed KNEE SURGERY HX lt x2 PAST SURGICAL HISTORY OF partial amputation of big toe PAST SURGICAL HISTORY OF Left 01/25/2015 great toe removal PAST SURGICAL HISTORY OF Bilateral 08/2022 C3 and C6 nerve ablasions TONSILLECTOMY HX TUBAL LIGATION HX Social History Alcohol Use: No Tobacco Use: .5 packs/day, for 30 years. Types: Cigarettes - still smokes - she's working on it Drug Use: No Occupation: worked at [employer] for 10 years Family History FAMILY HISTORY Problem Relation Age of Onset Cancer Father lung Cancer Mother pancreatic Multiple Sclerosis No Family History OBJECTIVE BP 119/62 (BP Site: Left Arm) Pulse 67 Temp 36.5 C (97.7 F) Ht 157.5 cm (5' 2) Wt 66.2 kg (146 lb) LMP 02/22/2000 (Approximate) SpO2 100% BMI 26.70 kg/m General: well appearing, alert, and in no acute distress Psych: affect and mood appropriate Skin: skin turgor normal HEENT: normocephalic, atraumatic Pulmonary: Unlabored breathing on room air. Symmetric chest expansion Neck: +++ TTP quite lateral to facet line ~ C6 and C7 or C5 and C6. Likely myofascial Neuro: AAOx3. Grossly intact Gait: Normal New or Pertinent Data: Impression IMPRESSION: EXPECTED POSTOPERATIVE APPEARANCE Painter Tumbling Barrel: STEPHANIE Transcribe Date/Time: Jan 15 2023 12:52P Dictated by : PRITI JONES MD This examination was interpreted and the report reviewed and electronically signed by: PRITI JONES MD on Jan 15 2023 12:54PM EST Results-Findings * * *Final Report* * * DATE OF EXAM: Jan 15 2023 12:27PM CRX [id number] - XR CERVICAL 2V FLEX/EXT / PROCEDURE REASON: Cervical vertebral fusion * * * * Physician Interpretation * * * * HISTORY (as given from clinical provider): Cervical vertebral fusion . Additional history provided by the performing technologist (if any): CHRONIC PAIN AND FUSION TECHNIQUE: XR CERVICAL 4V AP/LAT/OBL, XR CERVICAL 2V FLEX/EXT COMPARISON: None RESULT: Counting reference: Craniocervical junction. Anatomic Variants: None. The C7 level is not well seen on the lateral view due to overlapping tissues. Posterior decompression C4-C6 and posterior fusion C4-C6 using rods and lateral mass screws. Intact hardware. No evidence of loosening. Alignment is maintained through flexion and extension. Severe disc narrowing C5-6 and C6-7 compatible with degenerative disc disease. No other significant abnormality. Impression IMPRESSION: No clear evidence of demyelination on this study however there is mild chronic cord compression at T10-T11 due to combination of degenerative disc and facet disease. There is questionable increased signal within the cord at this level suggesting myelomalacia. No pathologic enhancement. Anatomic Thoracic/Lumbar Variant: None. L4-5 is considered the level of the iliac crest and assume there are 5 lumbar-type vertebrae. Painter Tumbling Barrel: [facility] Transcribe Date/Time: Aug 22 2022 12:23P Dictated by : NELDA SADLER MD This examination was interpreted and the report reviewed and electronically signed by: NELDA SADLER MD on Aug 22 2022 12:28PM EST Results-Findings * * *Final Report* * * DATE OF EXAM: Aug 22 2022 11:44AM [facility] [id number] - MRI THORACIC SPINE WO/W IVCON / PROCEDURE REASON: Multiple sclerosis (HCC) * * * * Physician Interpretation * * * * EXAMINATION: MRI THORACIC SPINE WO/W IVCON CLINICAL HISTORY: Multiple sclerosis (HCC) TECHNIQUE: Routine thoracic spine MR protocol with and without intravenous gadolinium. MQ: [id number] COMPARISON: MRI thoracic spine from 07/16/2017. RESULT: Counting reference: Craniocervical and lumbosacral junctions. For the purposes of this report, Assume the first normal thoracic rib is at the T1 level. Localizer images: Unremarkable. Alignment: Alignment is anatomic. Moderate loss of disc height at T5-T6 reflecting degeneration. Cord: There is mild chronic cord compression at T10-T11 due to the presence of a disc bulge and redundant ligamentum flavum (series 19 image 9 and series 21 image 9). There is questionable increased signal within the cord at this level raising the specter of myelomalacia. Bone marrow signal/fracture: Again noted are-type II endplate changes adjacent to T10-T11 and T11-T12 and T12-L1. No evidence of pathologic marrow infiltration. Chronic less than 30% anterior compression deformity of T11 without dorsal displacement the posterior wall. Thoracic paraspinal soft tissues: The paraspinal soft tissues are within normal limits. Canal and foramina: Mild canal stenosis due to bulges at T3-T4, T5-T6, T10-T11 and T11-T12. Impression IMPRESSION: Multiple intracranial white matter lesions compatible with multiple sclerosis. No new T2 lesions and no new enhancing lesions. Mild parenchymal volume loss. Other Significant Intracranial Findings: None No evidence of demyelinating disease in the cervical and upper thoracic spinal cord. No new T2 intramedullary lesions and no new enhancing intramedullary lesions. Mild upper spinal cord volume loss for age. Other Significant Cervical Spine Findings: No significant cervical canal or foraminal stenosis. Stable postop changes of laminectomies at C4-C6 and posterior fusion. Cervical Anatomic Variant: None. Assume 7 cervical vertebrae with counting from the craniocervical junction. *Note: The definition of new T2 Lesions includes both new and enlarging plaques on T2-weighted FLAIR images (new lesions greater than or equal to 5mm3 or an increase in diameter of an existing lesion by greater than or equal to 2mm). Painter Tumbling Barrel: [facility] Transcribe Date/Time: Aug 22 2022 12:16P Dictated by : NELDA SADLER MD This examination was interpreted and the report reviewed and electronically signed by: NELDA SADLER MD on Aug 22 2022 12:28PM EST Results-Findings * * *Final Report* * * DATE OF EXAM: Aug 22 2022 11:44AM [facility] [id number] - MRI CERVICAL SPINE WO/W IVCON / PROCEDURE REASON: Multiple sclerosis (HCC) * * * * Physician Interpretation * * * * EXAMINATION: MRI BRAIN WO/W IVCON, MRI CERVICAL SPINE WO/W IVCON HISTORY: Multiple sclerosis. Routine follow-up TECHNIQUE: Brain MRI with demyelinating disease protocol with and without gadolinium. Routine cervical spine protocol with and without gadolinium. MQ: [id number] Contrast: 15 mL Dotarem IV COMPARISON: MRI of the brain from 02/11/2021 MRI cervical spine from 07/16/2017. RESULT: MR BRAIN: Parenchymal Findings: There are confluent areas of hyperintensity on FLAIR and T2 within the white matter, compatible with the clinical diagnosis of multiple sclerosis. New T2 Lesions: None Interval Improvement: None. New Enhancing Lesions: None T2 [place] of Disease: Moderate. Parenchymal Volume Loss: Mild. Other Significant Findings/Site(s) of New T2 Lesions(s): None. MR CERVICAL: Counting reference: Craniocervical junction. Anatomic Variants: None. Alignment: Alignment is anatomic. Stable severe loss of disc height at C5-C6 and C6-C7 reflecting degeneration. Stable moderate loss of disc height at C7-T1 reflecting degeneration Again noted are postoperative changes of posterior spinal fixation rods and pedicle screws extending from C4 through C6. Stable laminectomies are identified at C4-C6. No pseudomeningocele. Craniocervical Junction: Craniocervical junction is normal. Cord Findings: The visualized cord is within normal limits of signal intensity and morphology. Cord T2 Plaque [place]: None New T2 Lesions: None Interval Cord Improvement: None New Cord Enhancing Lesions: None Cord Volume Loss: Mild Bone marrow signal/fracture: No evidence of pathologic marrow infiltration. No evidence of prior fracture. Cervical soft tissues: The paraspinal soft tissues are within normal limits. Cervical Canal and foramina: No significant canal or foraminal stenosis in the visualized spine. ASSESSMENT Elo Gray is a 67 year old woman with hx that includes Eliquis anticoagulation, anxiety, depression, atrial fibrillation, posterior cervical fusion C4-6, COPD, diabetes, GI bleed, IBS, MS, old [place], pancreatitis, RLS, and current smoking who presents for medication encounter, discussion re: Percocet, and questions about her neck pain and previous procedures. Reports MBBs/RFA in the past. No records available, so she will get them. Aware of myelomalacia Karis MRI; follows with [facility]. Trip planned for [facility]; requesting additional Percocet. Also reports she hurt her back moving dresser ~ 4 weeks ago; now better. Agreed to #16 for this script to last at least 3 months. Last script 12/10/22 #15. Plan back to #15 in the future. Understands no early scripts. Ms. Gray reports that she is riding the bike ~ 15 minutes per day with associated weight loss. Hgb A1c down to 7 from over 8. Lauded this activity and encouraged smoking cessation as well. PE today is with e/o TTP over cervical musculature and myofascial tissues. Will proceed with TPIs next available and determine further POC based on outcome. R/b/a reviewed and understood. Multiple questions and concerns were addressed and answered at length to Ms. Gray's satisfaction. (M79.18) Myofascial pain (primary encounter diagnosis) (M54.2) Myofascial neck pain (R29.898) Tight unbalanced muscles (G89.29) Other chronic pain (Z98.1) History of fusion of cervical spine (G35) MS (multiple sclerosis) (HCC) (F17.200) Current smoker (Z79.01) Chronic anticoagulation PLAN : RTC for TPIs (40 min if procedure + review of notes) Discuss notes if rec'd. Percocet #16 - one script - to last at least 90 days. Stop smoking Continue exercise as tolerated FTFT: 0632-2745 I counseled the patient on the importance of health promotion and lifestyle modifications including smoking cessation, healthy eating, and continued exercise as tolerated. Medications may cause sedation and impairment of judgment. The patient is advised against driving or using heavy machinery if drowsy. The patient is also advised against using alcohol or other substances that may have a further additive effect. Shared decision making utilized to continue current treatment plan and patient's questions were answered. The above plan and management options were discussed with patient. The patient is in agreement with the above and verbalized understanding. Heather Davis MD Medical Decision Making: Problems: Moderate: 2+ stable chronic illnesses Data: Unique test result(s) reviewed: 1 Risk: Moderate: Drug management Medical Decision Making Level: 4 - Moderate 1. This office note may have been dictated. It also may contain minor typographic errors that escaped review 2. The nursing staff and advanced practice providers are a major part of YOUR TREATMENT TEAM and will be handling your phone calls and electronic inquiries, if any. Unless explicitly told otherwise at the time of your office visit, your study results and ensuing treatment plans will be discussed during your follow-up appointment. 3. If you do not have a follow-up appointment and wish to discuss any issues directly with me, please feel free to obtain one. Time allotted for procedure appointments will not allow for these follow-up discussions and the preoperative visit will not allow sufficient time for thorough discussion. 4. It is our practice not to fill disability, FCE, or any other insurance-related forms/documention. The office notes, study results, and other pertinent documentation generated as part of your evaluation will be available to you and to your Primary Care Physician (PCP). Use of this material to complete such forms will be at the discretion of your PCP/referring physician. documented in this encounter [facility] 03-05-2023 Miscellaneous Notes Prior Auth denied by [employer] thru [employer]. Explanation and denial printout placed on providers desk for review. Amy Campbell MA Pa Started with [employer]. Amy Campbell MA documented in this encounter [facility] 03-05-2023 Miscellaneous Notes Duplicate encounter Patient also called and sent mc message She was looking for early refill on provigil This was completed yesterday Closing Ramin Call Name of caller : Elo Gray Relationship to patient: Self Return call phone number : [phone] Reason for call : Other : Brief description of concern : Per the patient, she is returning Maribell's call documented in this encounter [facility] 03-05-2023 Miscellaneous Notes Refill was sent yesterday, responded to patient's [employer] message Closing Ramin Call Name of caller : Elo Relationship to patient: Self Return call phone number : [phone] Reason for call : Pt is requesting an early refill on her Modafinil to be picked up from pharmacy on 03/10/23 leaving state documented in this encounter [facility] 03-05-2023 Miscellaneous Notes Freestyle prescription sent to [facility] thru [employer] as per provider. See seperate note. Amy Campbell MA FREESTYLE JANAY 3 sensor/reader kit, printed, please FAX to patient DME see message below RX PRINTED, please process Patient's request for medication is as follows Requested Prescriptions Signed Prescriptions Disp Refills flash glucose scanning reader (FREESTYLE JANAY 3 READER) 1 Each 0 Sig: Dispense one reader kit. USE FOR CONTINUOUS GLUCOSE MONITORING. Multiple insulin injections. E11.9 Authorizing Provider: ROSA FLORES Blood-Glucose Sensor (FREESTYLE JANAY 3 SENSOR) aubrey 7 Each 3 Sig: Change sensor every 14 days. USE FOR CONTINUOUS GLUCOSE MONITORING. Multiple insulin injections. E11.9 Authorizing Provider: ROSA FLORES Order entered - please phone pharmacy and notify patient. Rosa Flores APRN.[place] Pt states her Janay 2 came form [email or web address] ([facility]). Pt also mentioned [facility]. See 09/17/22 MyChart encounter. Previous Janay looks like it had to have a prior auth-see 09/13/22 first MyChart msg and 09/15/22 TE. We need to know WHICH DME the patient uses for her FREESTYLE JANAY CGM fills The script was printed and she is medicare so must go through [facility] as medicare requires this. Please advise Pt calling in and states someone called her to let her know that the new [place] Janay 3 meter is out. She states she gave permission for the company to call us as she is requesting to get this new meter. (pt stated [place]-even spelled it to me. Guessing Freestyle is what it should be?) documented in this encounter [facility] 03-05-2023 Miscellaneous Notes ESCRIPTED CGM supplies to [facility] documented in this encounter [facility] 03-04-2023 Miscellaneous Notes The following approved medication requests have been transmitted electronically. Requested Prescriptions Signed Prescriptions Disp Refills modafinil (PROVIGIL) 200 mg tablet 30 tablet 5 Sig: Take 1 tablet by mouth once daily for 180 days. Authorizing Provider: BILL WOODS PA-C Per patient sending [employer] assistant message about going on vacation on the 16 for 2 weeks and needs a little early for that reason because she will be out. Source : [employer] from patient requesting refill. Delivery : e-script Requested Prescriptions Pending Prescriptions Disp Refills modafinil (PROVIGIL) 200 mg tablet 30 tablet 5 Sig: Take 1 tablet by mouth once daily for 30 days. DX : Patient last seen: 01/29/2023 Next Appointment : None Tiffanie Cline documented in this encounter [facility] 02-23-2023 Miscellaneous Notes Faxed over to [facility] notes. Updated pt via [employer] message. Pt asking for Ozempic 1mg to be ordered as once again the certified scrum master is out of the 2mg dose. Requester: Patient Patients last Endocrinology visit occurred 02/11/2023. Follow-up evaluation has been established 08/19/2023. Upcoming Endocrinology Appointments - Next 365 Days Visit Type Date Time Department EST RICHARD PATIENT 08/19/2023 9:15 AM [facility] Requested Prescriptions Pending Prescriptions Disp Refills semaglutide (OZEMPIC) 1 mg/dose (4 mg/3 mL) pen 18 mL 3 Sig: Inject 2 mg subcutaneously one time a week. Inject two 1mg injections subcutaneously once a week. Please advise. documented in this encounter [facility] 02-18-2023 History of Present illness Narrative HPI: Patient returns for f/u of folliculitis. Patient reports improvement. Patient took Kesimpta Thursday. Took photos documenting what she looked like before and after the shot. doxycycline monohydrate (MONODOX) 100 mg capsule Take 1 capsule by mouth two times a day for 7 days. mupirocin (BACTROBAN) 2 % ointment Apply to wound twice daily until healed.. Doxycycline 100 mg, Mupirocin 2% ointment EXAM: Alert & oriented in no acute distress. Left Buccal Cheek, Right Buccal Cheek Few erythematous excoriated papules. IMPRESSION/PLAN: Folliculitis Left Buccal Cheek; Right Buccal Cheek Related to Kesimpta, but not allergic. Much improved and less severe after last injection. Continue to treat with doxycycline as needed with monthly injections. Follow up if not able to control folliculitis with current plan. Doxycycline script for 7 days with refills as needed. Advised to only fill as needed because old doxycycline can harm the kidneys if past expiration date. Related Medications mupirocin (BACTROBAN) 2 % ointment Apply to wound twice daily until healed. doxycycline monohydrate (MONODOX) 100 mg capsule Take 1 capsule by mouth two times a day. When needed for a flare-up. -F/u visit: as needed The documentation for this note was completed by Rajan Bloom MA acting as scribe for Vaishnavi Soria MD. February 18, 2023 10:29 AM. I agree with the Chief Complaint, ROS, and Past Histories independently gathered by the clinical application support analyst and the remaining scribed note accurately describes my personal service to the patient. Vaishnavi Soria MD Medical Decision Making: Problems: Low: Stable chronic illness Risk: Minimal: Minimal risk from testing/treatment Medical Decision Making Level: 2 - Straightforward documented in this encounter [facility] 02-11-2023 History of Present illness Narrative Images from the original note were not included. Images from the original note were not included. OFFICE VISIT PROGRESS NOTE AQUILES rGay is a 67 year old female who presents today for blood sugar review, insulin dose adjust. HPI Diagnosed with diabetes mellitus type II, ~ 1999 Last endocrine OV 11/05/2022 Some elements copied from my note 11/05/2022 which have been updated where appropriate, and all reflect current medical decision making from date of this visit. Pt increased herself to 1 mg OZEMPIC dosing Gets diabetic meals through [employer] Follows with [facility] for MS Will be re-evaluated for MS Had recent MRI and several changes were noted Recent issue with dehydration and lower blood sugar of 56 Squad to [facility] and she was rehydrated and sent home [facility] - 02-11-2023 Doing well Had optic MRI for hx of neuritis, no new findings Loves the ozempic I 'lost more weight' Hardily using the SS CURRENT DM MEDS Humalog SS IF NEEDED - uses approx 1 time daily - uses very minimally OZEMPIC 2 mg weekly injection FARXIGA 10 mg 1 tab daily ACTOS 30 mg 1 tab daily SMBG Type of Monitor: Other BloompopE CGM 2 Frequency of Monitorin times a day BG Values: Hypoglycemia: no Diet: none specific Exercise: exercise by cycling and PT 2 times per week DM REVIEW OF SYSTEMS Last Eye Exam : orbital MRI, at last eye exam, hx of optic neuritis, nothing new. December 2022 Last Podiatry Exam: sees podiatry, great toe L foot amputation (infected blister) sees for nails Cardiorespiratory: negative, denies chest pain, pressure Claudication: no Dyslipidemia: Yes, controlled on medication High Blood Pressure: Yes, controlled on medication CURRENT LABS Component Latest Ref Rng & Units 08/06/2022 01/14/2023 Hemoglobin A1C 4.3 - 5.6 % 7.1 (H) Estimated Average Glucose mg/dL 157 Hemoglobin A1C (POCT) 4.2 - 5.6 % 8.5 (A) Component Latest Ref Rng & Units 01/14/2023 Protein, Total 6.3 - 8.0 g/dL 5.8 (L) Albumin 3.9 - 4.9 g/dL 3.9 Calcium 8.5 - 10.2 mg/dL 10.1 Bilirubin, Total 0.2 - 1.3 mg/dL 0.3 Alkaline Phosphatase 34 - 123 U/L 78 AST 13 - 35 U/L 12 (L) ALT 7 - 38 U/L 9 Glucose 74 - 99 mg/dL 171 (H) BUN 7 - 21 mg/dL 19 Creatinine 0.58 - 0.96 mg/dL 0.63 Sodium 136 - 144 mmol/L 137 Potassium 3.7 - 5.1 mmol/L 4.5 Chloride 97 - 105 mmol/L 103 CO2 22 - 30 mmol/L 25 Anion Gap 9 - 18 mmol/L 9 eGFR >=60 mL/min/1.73m 97 Hemoglobin A1C 4.3 - 5.6 % 7.1 (H) Estimated Average Glucose mg/dL 157 PAST MEDICAL HISTORY Diagnosis Date Anxiety and depression Anxiety and depression Atrial fibrillation (HCC) Cardiomyopathy (HCC) Cervical myelopathy (HCC) CHF (congestive heart failure) (HCC) Cognitive impairment Colitis COPD (chronic obstructive pulmonary disease) (HCC) Diabetes (HCC) Dyslipidemia GI bleed History of loop recorder Hypertension IBS (irritable bowel syndrome) Multiple sclerosis (HCC) Myocardial infarct, old 03/2016 Obesity Pancreatitis 1978 Renal insufficiency RLS (restless legs syndrome) Tobacco dependence Urinary incontinence PAST SURGICAL HISTORY Procedure Laterality Date BACK SURGERY HX lower x3 CARPAL TUNNEL lt and rt COLONOSCOPY FLX DX W/COLLJ SPEC WHEN PFRMD 10/12/2014 Colonoscopy inpt [facility] COLONOSCOPY FLX DX W/COLLJ SPEC WHEN PFRMD 02/28/2015 Colonoscopy FINGER SURGERY HX thumb reconstructed KNEE SURGERY HX lt x2 PAST SURGICAL HISTORY OF partial amputation of big toe PAST SURGICAL HISTORY OF Left 01/25/2015 great toe removal PAST SURGICAL HISTORY OF Bilateral 08/2022 C3 and C6 nerve ablasions TONSILLECTOMY HX TUBAL LIGATION HX FAMILY HISTORY Problem Relation Age of Onset Cancer Father lung Cancer Mother pancreatic Multiple Sclerosis No Family History Social History Tobacco Use Smoking status: Every Day Packs/day: 0.50 Years: 30.00 Additional pack years: 0.00 Total pack years: 15.00 Types: Cigarettes Start date: 01/04/1973 Smokeless tobacco: Never Tobacco comments: Less than 10 Vaping Use Vaping Use: Never used Substance Use Topics Alcohol use: No Drug use: No Current Outpatient Medications Medication Sig cyclobenzaprine (FLEXERIL) 5 mg tablet Take 1 tablet by mouth twice daily as needed for muscle spasm. losartan (COZAAR) 50 mg tablet 50 mg twice daily. carvedilol (COREG) 12.5 mg tablet Take 12.5 mg by mouth twice daily with meals. oxyCODONE-acetaminophen (PERCOCET) 5-325 mg tablet 1/2 tab po daily prn pain insulin lispro (HUMALOG KWIKPEN INSULIN) 100 unit/mL Use with meals based on PRE meal blood sugar SLIDING SCALE as needed #1 (1 for 50 over 150) ~20 units daily FARXIGA 10 mg tablet Take 1 tablet by mouth every morning. semaglutide (OZEMPIC) 2 mg/dose (8 mg/3 mL) pen injector Inject 2 mg subcutaneously one time a week. ofatumumab (KESIMPTA PEN) 20 mg/0.4 mL injection Inject 1 pen (0.4mL) under the skin once monthly modafinil (PROVIGIL) 200 mg tablet Take 1 tablet by mouth once daily for 30 days. donepezil (ARICEPT) 10 mg tablet Take 2 tablets by mouth once daily. Insulin Scarbro, Disposable, (BD ULTRAFINE III MINI PEN) 31 gauge x 3/16 Uses 4 per day with insulin injection. flash glucose sensor (FREESTYLE JANAY 2 SENSOR) kit Change sensor every 14 days. USE FOR CONTINUOUS GLUCOSE MONITORING. MULTIPLE INSULIN INJECTIONS. E11.9 Alosetron HCl 0.5 mg tablet (Patient not taking: Reported on 01/14/2023) cyanocobalamin (VITAMIN B-12) 1,000 mcg tab Take 1 tablet by mouth once daily. QUEtiapine (SEROQUEL) 50 mg tablet Take 100 mg by mouth daily at bedtime. ondansetron (ZOFRAN) 4 mg tablet Take 1 tablet by mouth every 8 hours as needed for nausea/vomiting. isosorbide mononitrate ER (IMDUR) 30 mg 24 hr tablet Take 1 tablet by mouth once daily. ferrous sulfate 325 mg (65 mg iron) tablet Take 1 tablet by mouth every 48 hours. carvedilol (COREG) 6.25 mg tablet Take 1 tablet by mouth twice daily with meals for 14 days. (Patient taking differently: Take 12.5 mg by mouth twice daily with meals.) rOPINIRole (REQUIP) 1 mg tablet Take 2 mg by mouth daily at bedtime. eluxadoline (VIBERZI) 100 mg tab Take 100 mg by mouth as needed. acetaminophen (TYLENOL) 500 mg tablet Take 500 mg by mouth every 6 hours as needed for pain. apixaban (ELIQUIS) 5 mg tab(s) Take 5 mg by mouth twice daily. albuterol HFA (PROVENTIL HFA, VENTOLIN HFA) 90 mcg/actuation inhaler Inhale 2 Puffs as instructed every 4 hours as needed for wheezing/shortness of breath. vibegron (GEMTESA) 75 mg tablet Take 75 mg by mouth once daily. nitroglycerin sublingual (NITROQUICK) 0.4 mg SL tablet Dissolve 0.4 mg under the tongue every 5 minutes as needed. pioglitazone (ACTOS) 30 mg tablet Take 30 mg by mouth once daily. pantoprazole DR (PROTONIX) 40 mg tablet Take 40 mg by mouth once daily. ondansetron orally disintegrating (ZOFRAN ODT) 4 mg disintegrating tablet Take 4 mg by mouth every 8 hours as needed for nausea/vomiting. DULoxetine (CYMBALTA) 30 mg capsule Take 30 mg by mouth twice daily. dicyclomine (BENTYL) 20 mg tablet Take 20 mg by mouth twice daily as needed. PROLIA 60 mg/mL once every 6 months. calcium carbonate (CALTRATE) 600 mg calcium (1,500 mg) tab Take 600 mg by mouth once daily. atorvastatin (LIPITOR) 40 mg tablet Take 40 mg by mouth once daily. ascorbic acid, vitamin C, (VITAMIN C) 500 mg tablet Take 1 tablet by mouth once daily. sucralfate (CARAFATE) 1 gram tablet Take 1 tablet by mouth four times daily. hydrOXYzine HCl (ATARAX) 50 mg tablet Take 1 tablet by mouth three times daily as needed. (Patient taking differently: Take 50 mg by mouth twice daily.) Cholecalciferol, Vitamin D3, 5,000 unit cap Take 1 capsule by mouth once daily. rOPINIRole (REQUIP) 1 mg tablet Take 1 mg by mouth daily with lunch. aspirin, enteric coated (ASPIRIN, ENTERIC COATED) 81 mg EC tablet Take 81 mg by mouth once daily. No current facility-administered medications for this visit. ALLERGIES Allergen Reactions Aspirin Other: See Comments Indomethacin Other: See Comments Abilify [Aripiprazo* Other: See Comments Excessive drooling Clindamycin Intolerance Darvocet A500 [Prop* Intolerance Imitrex [Sumatripta* Vomiting BP went down Iodinated Contrast * Other: See Comments Iodine Intolerance Metformin GI Upset Stomach spasms Propoxyphene Other: See Comments Trazodone Intolerance Unable to wake up REVIEW OF SYSTEMS - POSITIVES IN BOLD GENERAL:No weight loss, malaise or fevers HEENT:Negative for frequent or significant headaches, No changes in hearing or vision, no nose bleeds or other nasal problems NECK:Negative for lumps, goiter, pain and significant neck swelling RESPIRATORY: Negative for cough, hemoptysis, wheezing, COPD, dyspnea or shortness of breath CARDIOVASCULAR: Negative for chest pain, leg swelling, hypertension, CHF or palpitations PHYSICAL EXAMINATION: BP 142/70 Pulse 65 Ht 157.5 cm (5' 2) Wt 67 kg (147 lb 9.6 oz) LMP 02/22/2000 (Approximate) SpO2 94% BMI 27.00 kg/m GENERAL: alert and appropriate, in no distress and well-hydrated, well nourished SKIN: no rash noted HEAD: normocephalic, no abnormality or lesion noted EYES: PERRL NECK: full ROM, no cervical LNs noted ACANTHOSIS: none noted EXTREMITIES: normal NEUROLOGIC: no obvious deficit ASSESSMENT: (E11.9) Controlled type 2 diabetes mellitus without complication, unspecified whether prison insulin use (HCC) (primary encounter diagnosis) Comment: CGM downloaded and reviewed for OV Recommendations as per below: very well controlled per current A1C 7.1% No changes to current medications and/or SS dosing - pt uses SS very minimally Recommended diet: Low carbohydrate and Low saturated fat, low simple sugar, high fiber diet Exercise minimally 150 minutes per week, increase as tolerated. Adequate hydration - 1/2 body wgt in oz of water daily, unless fluid restriction applies. I instructed the patient to monitor blood sugars 4 times per day If blood sugars are persistently high or low, to call our office. Patient to continue to follow up with her PCP and with other consultants regarding her other medical problems. Plan: COMP METABOLIC PANEL, LIPID PANEL, NONFASTING, ALBUMIN/CREAT RATIO RND UR, HGB A1C Rosa Flores CNP documented in this encounter [facility] 02-04-2023 Miscellaneous Notes Dear Maribell, Thank you for your referral to the National MS Society. We appreciate your efforts to connect this individual affected by MS to our resources. Please see the below Referral Summary for Elo. HCP REFERRAL SUMMARY: Elo Gray was referred to the Society for the following needs: Equipment Needs, Patient is interested in obtaining assistance for a Cooling Vest. Full assessment was completed, which revealed need for cooling vest and shower modification. Navigator approved assistance for cooling vest and shower modification. Impact: Elo can now stay cool all year round as well as being safer and more independent in her bathroom. Elo is encouraged to reach back out with any future questions or concerns. Shana Fox Ext [phone] It was my total pleasure working with Kendra and her son! I just got off the phone with Kendra and the bathroom is 90% done and her son will finish up the small details (trim and painting) before the end of the weekend. Hopefully, I get before and after photos, those are always the best! Sincerely, Shana Fox MA, NTP Sound Equipment Mechanic, MS Navigator Services Delivery MS Navigator Experience Team National MS Society tel [phone] fax [phone] [email or web address] documented in this encounter [facility] 02-03-2023 Miscellaneous Notes Patient called office, verified name and . Patient indicates she completed sleep study yesterday and was told she does not have sleep apnea, just RLS. Routing to Bill Woods PA-C to update. Maribell Cunha RN documented in this encounter [facility] 01-29-2023 Miscellaneous Notes Patient has arrived for visit with Bill Woods PA-C today at 1:00. Routing to Billtoño Woods PA-C. Maribell Cunha RN Ramin Call Name of caller : Elo Relationship to patient: Self Return call phone number : [phone] Reason for call : Patient would like a call back from certified nursing attendant regarding test results. documented in this encounter [facility] 01-29-2023 History of Present illness Narrative Images from the original note were not included. [facility] FOR MULTIPLE SCLEROSIS FOLLOWUP/ESTABLISHED PATIENT VISIT PRINCIPAL NEUROLOGIC DIAGNOSIS: Multiple sclerosis DISEASE SUMMARY Date of onset: 12/1998 Date of diagnosis of MS: 1998 Disease course at onset: Progressive with relapses Current disease course: Progressive with relapses Previous disease therapies: Glatiramer acetate 2002, [id number], [id number] Fingolimod 07/2014-04/2016 (switched because of heart issues - had heart attack) Teriflunomide 7 mg 04/2016-10/2016 Prednisone x 10 days 03/2017 IVMP 01/25/17 x 1 dose Teriflunomide 14 mg daily Current disease therapy: Kesimpta (started 01/2022) Most recent MRI brain: 08/22/22 Most recent MRI cervical spine: 08/22/22 Most recent MRI thoracic spine: 08/22/22 CSF: 1998 JCV serology result and date: NA CHIEF COMPLAINT: Follow-up on MS disease modifying therapy INTERVAL HISTORY: Usual treating team: Pako/Carlos The patient is accompanied by self. The patient was last seen 01/14/23, currently taking Kesimpta . Since the patient's last visit the patient reports overall feeling stable. Dermatology for facial rash eval - needs to follow-up 3 days after next Kesimpta - given antibiotics Saw [facility] for eval - recommended cardiology complete EKG - seeing cardiology tomorrow tomorrow Son working on bathroom update - laying ector yesterday Excited to go to [place] to visit sister for Thanksgiving Lost 13 lbs over the last couple weeks? - mammogram tomorrow - pap done - bacteria noted? - colonoscopy 3 years ago - endoscopy - a couple ulcers - 149 lbs today - has increased Ozempic dose Sleep study Thursday night Went to see eye doctor for follow-up. Should be sending results Has been doing PT still SUBJECTIVE & REVIEW OF SYSTEMS: Neuro-QoL Functions (higher=better functioning) Flowsheet [facility] Office Visit from 01/29/2023 in [facility] Office Visit from 01/14/2023 in Neurology Office Visit from 09/03/2022 in Neurology Upper Extremity Domain T Score 36.77 41 43 Lower Extremity Domain T Score 41.61 39 39 Cognitive Function Domain T Score 36.84 40 40 Positive Affect Well Being T Score -- -- -- Ability To Participate In Social Roles T Score 38.47 42 42 Satisfaction With Social Roles T Score 41.97 45 46 Neuro-QoL Symptoms (higher=worse symptoms) Flowsheet [facility] Office Visit from 01/29/2023 in [facility] Office Visit from 01/14/2023 in Neurology Office Visit from 09/03/2022 in Neurology Sleep Domain T Score 62 61 63 Fatigue Domain T Score 52.38 54 60 Anxiety Domain T Score 50.02 49 50 Depression Domain T Score 48.65 45 46 Stigma Domain T Score 58.51 59 63 Emotional Behavior Dyscontrol T Score -- -- -- *NeuroQoL is a multi-domain patient-reported quality of life questionnaire. PHQ-9 Flowsheet Row Office Visit from 01/26/2023 in Neurology Office Visit from 01/15/2023 in Spine Medicine PHQ-9 Score 6 4 *PHQ-9 is a questionnaire for depressive symptoms, with scores 0-4 indicating none, 5-9 mild, 10-14 moderate, 15-19 moderately severe, and 20-27 severe symptoms. PROMIS-10 Flowsheet Row Office Visit from 12/03/2022 in Neurology Office Visit from 07/01/2017 in [facility] Global Physical Health T Score 37.4 26.7 Global Mental Health T Score 45.8 28.4 0-10 Standard Pain Scale 3 2 *PROMIS-10 is a patient-reported quality of life measure, typically reported as physical and mental domains. Here scores are expressed as percentiles, where the lowest possible score is one, the highest possible score is 99, and 50 is average. Refer to patient-entered data. Mood: PHQ9 responses reviewed and appear below Pain related to today's visit:reviewed on nursing intake documentation PAST HISTORY was reviewed and updated: PAST MEDICAL HISTORY Diagnosis Date Anxiety and depression Anxiety and depression Atrial fibrillation (HCC) Cardiomyopathy (HCC) Cervical myelopathy (HCC) CHF (congestive heart failure) (HCC) Cognitive impairment Colitis COPD (chronic obstructive pulmonary disease) (HCC) Diabetes (HCC) Dyslipidemia GI bleed History of loop recorder Hypertension IBS (irritable bowel syndrome) Multiple sclerosis (HCC) Myocardial infarct, old 03/2016 Obesity Pancreatitis 1978 Renal insufficiency RLS (restless legs syndrome) Tobacco dependence Urinary incontinence PAST SURGICAL HISTORY Procedure Laterality Date BACK SURGERY HX lower x3 CARPAL TUNNEL lt and rt COLONOSCOPY FLX DX W/COLLJ SPEC WHEN PFRMD 10/12/2014 Colonoscopy inpt [facility] COLONOSCOPY FLX DX W/COLLJ SPEC WHEN PFRMD 02/28/2015 Colonoscopy FINGER SURGERY HX thumb reconstructed KNEE SURGERY HX lt x2 PAST SURGICAL HISTORY OF partial amputation of big toe PAST SURGICAL HISTORY OF Left 01/25/2015 great toe removal PAST SURGICAL HISTORY OF Bilateral 08/2022 C3 and C6 nerve ablasions TONSILLECTOMY HX TUBAL LIGATION HX MEDICATIONS and ALLERGIES were reviewed and updated. SOCIAL HISTORY was reviewed and updated: Social History Tobacco Use Smoking status: Every Day Packs/day: 0.50 Years: 30.00 Additional pack years: 0.00 Total pack years: 15.00 Types: Cigarettes Start date: 01/04/1973 Smokeless tobacco: Never Tobacco comments: Less than 10 Living situation: Living at home without assistance Employment Status / Disability: Disabled, permanently or temporarily OBJECTIVE: VITALS & WELLNESS: BP 136/74 Pulse 63 Ht 157.5 cm (5' 2) Wt 66.2 kg (146 lb) LMP 02/22/2000 (Approximate) BMI 26.70 kg/m MSPT Performance Tests 01/29/2023 11/14/2021 Processing Speed Total Number Correct 34 31 Low-contrast letter acuity test-2.5 percent opacity 27 - Low-contrast letter acuity test-100 percent opacity 60 - Dominant hand - - MDT Left Hand Time 34.09 - MDT Right Hand Time 32.62 - Walking Speed Test (25 feet) 12.8 - EXAM: Refer to patient-entered performance data RESULTS: Monitoring labs: CBC + Diff Component Value Date WBC 6.37 07/25/2022 HB 13.9 07/25/2022 HCT 43.0 07/25/2022 PLT 247 07/25/2022 ABSLYMPH 1.41 07/25/2022 CMP Component Value Date AST 12 (L) 01/14/2023 GLUC 171 (H) 01/14/2023 BUN 19 01/14/2023 CREAT 0.63 01/14/2023 NA 137 01/14/2023 K 4.5 01/14/2023 CHLOR 103 01/14/2023 ALT 9 01/14/2023 Lab Results Component Value Date JCV Antibody Positive (A) 02/27/2021 JCV Index Value 3.46 (H) 02/27/2021 Discrete MRI Results Component Value Date Brain New T2 Lesions None 08/22/2022 Brain New T2 Lesions None 08/22/2022 Brain Enhancing Lesions None 08/22/2022 Brain Enhancing Lesions None 08/22/2022 Cervical Spine New T2 Lesions None 08/22/2022 Cervical Spine New T2 Lesions None 08/22/2022 Cervical spine enhancing lesions None 08/22/2022 Cervical spine enhancing lesions None 08/22/2022 ASSESSMENT/PLAN: Elo Gray is a 67 year old female with Multiple Sclerosis. Patient is on Kesimpta for DMT. She is working with dermatology to determine if any relationship to facial rash. Reports improvement since starting antibiotics. Continue to follow with specialists as directed. Patient reports weight loss but also notes Ozempic titration - reviewed the possible side effect with this medication. Continue to follow with PCP/endocrinology for routine health maintenance and weight monitoring. Patient needs age appropriate cancer screenings and vigilance due to smoking habit. Follow-up with in file operator about Aricept use as directed. Exam is:Stable, continue with current IMDT. The prescribed disease modifying therapy for MS is having the expected benefit in this patient based on imaging and clinical criteria, and will be continued or refilled, with planned follow-up at approximately 6-month intervals to continue to assess response on an ongoing basis. Patient Health Education Discussed at Visit: Aerobic exercise, Emotional Health/Wellness, and Risks and Common side effects of MS medications Follow-up: In 6 months at [facility] I spent a total of 45 minutes on the date of the service which included preparing to see the patient, [id number] patient care, completing clinical documentation, obtaining and/or reviewing separately obtained history, counseling and educating the patient/family/caregiver, ordering medications, tests, or procedures, and communicating results to the patient/family/caregiver. The patient was discussed with Dr. Kinsey. Bill Woods PA-C The chart was reviewed for possible participation in the following studies:None documented in this encounter [facility] 01-26-2023 Instructions Fawad Simmons, [facility] - 01/26/2023 9:47 AM EDT Thank you for meeting with me today, Kendra. We discussed that your word finding difficulties and thinking issues appear to be related to your MS and other health issues may be contributing. It is important to continue to follow up with your health providers to control your medical conditions and limited their impact on your cognition. If it is safe from a cardiology perspective it is Ok to continue the Aricept 20 mg once daily dose due to your reported good response and that you are tolerating it well without side effects. Here is the plan we discussed. Continue Aricept 20 mg once daily with lunch and review this dose with your Health Care Liaison. Repeat EKG with Health Care Liaison to monitor your QTc interval and your risk for cardiac arrhythmia. Cognitively healthy lifestyle. See the section below Ways to keep your brain healthy If cognitive symptoms/concerns worsen request Neuropsychological testing with Stacia Garcias through Bill Woods PA-C or Dr. Kinsey and consider re-evaluation here at [facility]. If you need to cancel/reschedule appointments please call [phone]. If you need to reach our office for any reason prior to your next visit, please contact us through SHERPA assistant or call [phone]. Armen Simmons RN-MSN, PUBLIC RELATIONS WRITER Psychiatric Mental Health Nurse Practitioner [facility] Ways to keep your brain healthy: Follow up regularly with your primary care and other providers to ensure your vascular risk factors (blood pressure, blood sugar, sleep apnea, and cholesterol levels, etc.) are well controlled. Eat a healthy diet, foods that are good for your heart are also good for your brain. It is also important to drink plenty of water to stay hydrated. Exercise - as little as 20 minutes of exercise per day (150 minutes per week) - has been shown to have a positive effect on memory and cognitive function. Maintain an active social life. Get 7-8 hours of sleep per night. If you nap during the day, try to keep napping to a regular schedule. Maintain a predictable and regular daily routine. Try learning new hobbies, games, or skills. Keep your brain active with reading, puzzles, and games. Please refer to [email or web address].[email or web address] website. It provides evidence based education on diet, exercise and activities that have benefit for memory. documented in this encounter [facility] 01-26-2023 Nurse Note Elo Gray is a 67 year old year old right handed woman Accompanied by: patient. 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 See what's going on with my brain. Vital Signs: BP 138/82 Pulse (!) 58 Wt 66.2 kg (146 lb) LMP 02/22/2000 (Approximate) BMI 26.70 kg/m documented in this encounter [facility] 01-26-2023 History of Present illness Narrative Reason for Consult: Cognitive changes (On Aricept 20 mg daily) I had the pleasure of seeing this 67 year old year old female at [facility]. The patient is referred by Bill Woods [address] [facility] [address] Patient is accompanied by and information obtained from patient and available records in the system. Background and History of Present Illness: Patient has a PMHx of MS since 1998 (established with referring providers, Dr. Kinsey and Bill Woods PA-C at the [facility]), BRYAN, cardiomyopathy, CHF, A-fib (Eliquis), COPD, DM2, HLD, HTN, [place] (2015), CAD s/p stents in 03/2016, RLS, Smoker, Anxiety and Depression (Cymbalta 30 mg BID and Seroquel 50 mg qHS). CC: She reports she has confusion, not Alzheimer's or dementia. She notes that when she does not take 20 mg Aricept she feels the confusion comes back. She has been prescribed 20 mg Aricept for past 6 years but when living in a skilled nursing previously the skilled nursing provider would not prescribe it due to being a high dose. In the mean time Bill Woods PA-C is prescribing but asked for [facility] provider input on her cognitive abilities per patient and Aricept dose. She reports positive response to Aricept at 20 mg dose, ie. Increased energy and alertness, less confusion. She reports cardiology is aware of her Aricept use and dose. [facility], follows up with them this Thursday. 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 Takes longer to do tasks or get motivated to do things. Not a major decline a little bit with fluctuations correlating with MS flare ups. She reports she had increase speech issues a few months ago during an MS flare. Previous and Current treatment: Aricept 20 mg at lunch. She describes primarily Word finding difficulty and issues She reports she's had NPT twice previously but these were done in [place], last in 2001. She previously used to be able to take computers apart and put them back together but can no longer. She went through period of isolation and had suicide attempt (2018) grieving after spouse in 2016. She's been more active and attending senior center which has been helpful for her mental health. She also has a psychiatric provider in ([place]) Dr. Aubree Sultana also goes to counseling as of two months ago. Family History of Dementia: Mother had Bipolar Disorder and Mild Dementia was on Aricept Has a CT scan or MRI of the brain been done? Yes (MRI Brain, 08/22/22) Social History: Marital Status: 7 years Housing: [employer] in double wide mobile home with her adopted son (supportive). Moved in with patient after spouse in 2016 Agencies involved: MS Society, [employer]ging, [facility] Activities of Daily Living [employer] [place] in Activities of Daily Living (A.D.L.) Bathing: Bathes self completely or needs help in bathing only a single part of the body such as the back, genital area or disabled extremity. (1 POINT) Dressing: Get clothes from closets and drawers and puts on clothes and outer garments complete with fasteners. May have help tying shoes. (1 POINT) Toileting: Goes to toilet, gets on and off, arranges clothes, cleans genital area without help. (1 POINT) Transferring: Moves in and out of bed or chair unassisted. Mechanical transfer aids are acceptable. (1 POINT) Continence: Exercises complete self-control over urination and defecation. (1 POINT) Feeding: Gets food from plate into mouth without help. Preparation of food may be done by another person. (1 POINT) -Score: 6 (higher is more independent, 0-7) [place] - [place] Instrumental Activities of Daily Living Scale (I.A.D.L.) Ability to Use Telephone: Operates telephone on own initiative-looks up and dials numbers, etc. (1 POINT) Shopping: Takes care of all shopping needs independently (1 POINT) Food Preparation: Prepares adequate meals if supplied with ingredients (0 POINTS) Housekeeping: Performs light daily tasks such as dish washing, bed making (1 POINT) Laundry: Does personal laundry completely (1 POINT) Mode of Transportation: Arranges own travel via taxi, but does not otherwise use public transportation (1 POINT) Responsibility for Own Medications: Takes responsibility if medication is prepared in advance in separate dosage (0 POINTS) Ability to Handle Finances: Manages financial matters independently (budgets, writes checks, pays rent, bills, goes to bank), collects and keeps track of income (1 POINT) -Score: 6 (higher is more independent, 0-8) *stopped driving in 2016, no longer has a vehicle, had fallen asleep while driving at times or had difficulty thinking. *reliant on lists at store *has a meal delivery service but cooks ~ 6 times/month, more difficulty planning meals (may make sauce but not have spaghetti.) *nurse comes weekly to fill her Pill Minder (Automated pill dispenser) Fall: Yes, fractured her tailbone and hit head in April. ED eval/imaging was negative for ICH. (No loss of consciousness) Have you ever been told, or suspected yourself, that you seem to act out your dreams while asleep (for example, punching, flailing your arms in the air, making running movements, etc.)? Yells out but is unsure of physical dream enactment behaviors. 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 Stopped working in 2000, On disability since 2010 Education level: 14 DPOA health Yes, on file in EMR DPOA finance None Guardian NA Fawad Simmons APRN.PUBLIC RELATIONS WRITER I have personally reviewed and verified the above information. PAST MEDICAL HISTORY Diagnosis Date Anxiety and depression Anxiety and depression Atrial fibrillation (HCC) Cardiomyopathy (HCC) Cervical myelopathy (HCC) CHF (congestive heart failure) (HCC) Cognitive impairment Colitis COPD (chronic obstructive pulmonary disease) (HCC) Diabetes (HCC) Dyslipidemia GI bleed History of loop recorder Hypertension IBS (irritable bowel syndrome) Multiple sclerosis (HCC) Myocardial infarct, old 03/2016 Obesity Pancreatitis 1978 Renal insufficiency RLS (restless legs syndrome) Tobacco dependence Urinary incontinence ALLERGIES Allergen Reactions Aspirin Other: See Comments Indomethacin Other: See Comments Abilify [Aripiprazo* Other: See Comments Excessive drooling Clindamycin Intolerance Darvocet A500 [Prop* Intolerance Imitrex [Sumatripta* Vomiting BP went down Iodinated Contrast * Other: See Comments Iodine Intolerance Metformin GI Upset Stomach spasms Propoxyphene Other: See Comments Trazodone Intolerance Unable to wake up Current Outpatient Medications on File Prior to Visit Medication Sig doxycycline monohydrate (MONODOX) 100 mg capsule Take 1 capsule by mouth two times a day for 7 days. mupirocin (BACTROBAN) 2 % ointment Apply to wound twice daily until healed. cyclobenzaprine (FLEXERIL) 5 mg tablet Take 1 tablet by mouth twice daily as needed for muscle spasm. losartan (COZAAR) 50 mg tablet 50 mg twice daily. carvedilol (COREG) 12.5 mg tablet Take 12.5 mg by mouth twice daily with meals. oxyCODONE-acetaminophen (PERCOCET) 5-325 mg tablet 1/2 tab po daily prn pain insulin lispro (HUMALOG KWIKPEN INSULIN) 100 unit/mL Use with meals based on PRE meal blood sugar SLIDING SCALE as needed #1 (1 for 50 over 150) ~20 units daily FARXIGA 10 mg tablet Take 1 tablet by mouth every morning. semaglutide (OZEMPIC) 2 mg/dose (8 mg/3 mL) pen injector Inject 2 mg subcutaneously one time a week. ofatumumab (KESIMPTA PEN) 20 mg/0.4 mL injection Inject 1 pen (0.4mL) under the skin once monthly modafinil (PROVIGIL) 200 mg tablet Take 1 tablet by mouth once daily for 30 days. donepezil (ARICEPT) 10 mg tablet Take 2 tablets by mouth once daily. Insulin Scarbro, Disposable, (BD ULTRAFINE III MINI PEN) 31 gauge x 3/16 Uses 4 per day with insulin injection. flash glucose sensor (FREESTYLE JANAY 2 SENSOR) kit Change sensor every 14 days. USE FOR CONTINUOUS GLUCOSE MONITORING. MULTIPLE INSULIN INJECTIONS. E11.9 Alosetron HCl 0.5 mg tablet cyanocobalamin (VITAMIN B-12) 1,000 mcg tab Take 1 tablet by mouth once daily. QUEtiapine (SEROQUEL) 50 mg tablet Take 100 mg by mouth daily at bedtime. ondansetron (ZOFRAN) 4 mg tablet Take 1 tablet by mouth every 8 hours as needed for nausea/vomiting. isosorbide mononitrate ER (IMDUR) 30 mg 24 hr tablet Take 1 tablet by mouth once daily. ferrous sulfate 325 mg (65 mg iron) tablet Take 1 tablet by mouth every 48 hours. carvedilol (COREG) 6.25 mg tablet Take 1 tablet by mouth twice daily with meals for 14 days. (Patient taking differently: Take 12.5 mg by mouth twice daily with meals.) rOPINIRole (REQUIP) 1 mg tablet Take 2 mg by mouth daily at bedtime. eluxadoline (VIBERZI) 100 mg tab Take 100 mg by mouth as needed. acetaminophen (TYLENOL) 500 mg tablet Take 500 mg by mouth every 6 hours as needed for pain. apixaban (ELIQUIS) 5 mg tab(s) Take 5 mg by mouth twice daily. albuterol HFA (PROVENTIL HFA, VENTOLIN HFA) 90 mcg/actuation inhaler Inhale 2 Puffs as instructed every 4 hours as needed for wheezing/shortness of breath. vibegron (GEMTESA) 75 mg tablet Take 75 mg by mouth once daily. nitroglycerin sublingual (NITROQUICK) 0.4 mg SL tablet Dissolve 0.4 mg under the tongue every 5 minutes as needed. [DISCONTINUED] teriflunomide (AUBAGIO) 14 mg TAKE 1 TABLET BY MOUTH ONCE DAILY. pioglitazone (ACTOS) 30 mg tablet Take 30 mg by mouth once daily. pantoprazole DR (PROTONIX) 40 mg tablet Take 40 mg by mouth once daily. ondansetron orally disintegrating (ZOFRAN ODT) 4 mg disintegrating tablet Take 4 mg by mouth every 8 hours as needed for nausea/vomiting. DULoxetine (CYMBALTA) 30 mg capsule Take 30 mg by mouth twice daily. dicyclomine (BENTYL) 20 mg tablet Take 20 mg by mouth twice daily as needed. PROLIA 60 mg/mL once every 6 months. calcium carbonate (CALTRATE) 600 mg calcium (1,500 mg) tab Take 600 mg by mouth once daily. atorvastatin (LIPITOR) 40 mg tablet Take 40 mg by mouth once daily. ascorbic acid, vitamin C, (VITAMIN C) 500 mg tablet Take 1 tablet by mouth once daily. sucralfate (CARAFATE) 1 gram tablet Take 1 tablet by mouth four times daily. hydrOXYzine HCl (ATARAX) 50 mg tablet Take 1 tablet by mouth three times daily as needed. (Patient taking differently: Take 50 mg by mouth two times a day.) Cholecalciferol, Vitamin D3, 5,000 unit cap Take 1 capsule by mouth once daily. rOPINIRole (REQUIP) 1 mg tablet Take 1 mg by mouth daily with lunch. aspirin, enteric coated (ASPIRIN, ENTERIC COATED) 81 mg EC tablet Take 81 mg by mouth once daily. No current facility-administered medications on file prior to visit. FAMILY HISTORY Problem Relation Age of Onset Cancer Father lung Cancer Mother pancreatic Multiple Sclerosis No Family History Social History Tobacco Use Smoking status: Every Day Packs/day: 0.50 Years: 30.00 Additional pack years: 0.00 Total pack years: 15.00 Types: Cigarettes Start date: 01/04/1973 Smokeless tobacco: Never Tobacco comments: Less than 10 Vaping Use Vaping Use: Never used Substance Use Topics Alcohol use: No Drug use: No REVIEW OF SYSTEMS: Weight change/Appetite: no issues reported Hearing: [place], partially corrected by hearing aids Vision: recent cataract surgery in March 2022 Change in memory problems: see HPI Constipation, Diarrhea: None currently Incontinence: stress incontinence of urine Chest pain, PND, orthopnea: none Edema: none Dyspnea: none Presence of pain and effect on function? Mid back and cervical pain (multiple spine surgeries). She reports minimal use of Percocet. Prescribed but has not started Flexeril. Falls/injuries/accidents: Yes, see above PSYCH: SEE HPI NEURO: SEE HPI Neurological Exam Brief Neuropsychiatric Evaluation: Herb Cognitive Assessment (MoCA) Version 1 Total Score: / Visuospatial/Executive: 4/5 Namin/3 Attention: 6/6 Language: 3/3 Abstraction: / Delayed Recall: / Orientation: / Education less than or equal to 12th grade: + PHQ-9 Score: 6 (01/25/2023 11:00 AM) (0-4) minimal depression, (5-9) mild depression, (10-14) moderate depression, (15-19) moderately severe depression, (20-27) severe depression Current and previous president and president during [employer] scandal: Yes Aware of 01/05/2001, date of elizabeth Mcdowell: yes Parable interpretation: Good TSH (mIU/L) Date Value 10/28/2021 1.393 Vitamin B12 (pg/mL) Date Value 01/14/2023 324 Vitamin D 25 Hydroxy (ng/mL) Date Value 05/20/2019 34.2 Most recent MRI/CT brain: MRI Report - Impression Only MRI BRAIN WO/W IVCON Exam End: 08/22/2022 11:44 AM (Final result) Impression: IMPRESSION: Multiple intracranial white matter lesions compatible with multiple sclerosis. No new T2 lesions and no new enhancing lesions. Mild parenchymal volume loss. Other Significant Intracranial Findings: None No evidence of demyelinating disease in the cervical and upper thoracic spinal cord. No new T2 intramedullary lesions and no new enhancing intramedullary lesions. Mild upper spinal cord volume loss for age. Other Significant Cervical Spine Findings: No significant cervical canal or foraminal stenosis. Stable postop changes of laminectomies at C4-C6 and posterior fusion. Cervical Anatomic Variant: None. Assume 7 cervical vertebrae with counting from the craniocervical junction. *Note: The definition of new T2 Lesions includes both new and enlarging plaques on T2-weighted FLAIR images (new lesions greater than or equal to 5mm3 or an increase in diameter of an existing lesion by greater than or equal to 2mm). Painter Tumbling Barrel: [facility] Transcribe Date/Time: Aug 22 2022 12:16P Dictated by : NELDA SADLER MD This examination was interpreted and the report reviewed and electronically signed by: NELDA SADLER MD on Aug 22 2022 12:28PM EST Assessment and Recommendation: This is a 67 year old female with history of MS who presented for cognitive evaluation and input on Aricept dose which she reports she's tolerating well without side effects and has had good cognitive response to. Subjective cognitive inefficiencies sound c/w MS, MoCA score was 28/30. Some functional impairment with MS and is well connected to resources such as MS Society. We discussed the following impression and plan Word finding difficulties and thinking issues appear to be related to your MS and other health issues may be contributing. It is important to continue to follow up with your health providers to control your medical conditions and limited their impact on your cognition. If it is safe from a cardiology perspective it is Ok to continue the Aricept 20 mg once daily dose due to your reported good response and that you are tolerating it well without side effects. 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 Repeat EKG with Health Care Liaison to monitor your QTc interval and your risk for cardiac arrhythmia. Cognitively healthy lifestyle. See the section below Ways to keep your brain healthy If cognitive symptoms/concerns worsen request Neuropsychological testing with Stacia Garcias through Bill Woods PA-C or Dr. Kinsey and consider re-evaluation here at [facility]. I spent a total of 75 minutes on the date of service which included preparing to see the patient, [id number] patient care, performing a medically appropriate examination, completing clinical documentation, and on counseling/ eductaing the patient and the family. Armen Simmons RN-MSN, PUBLIC RELATIONS WRITER Psychiatric Mental Health Nurse Practitioner [facility] January 26, 2023 documented in this encounter [facility] 01-23-2023 History of Present illness Narrative DERMATOLOGY / NEW PATIENT CONSULT Consultation/Referral requested by Bill Woods PA-C for an opinion regarding lesion of skin on face [L98.9]. My final recommendations will be communicated back to the requesting physician by way of shared Medical record or letter to requesting physician via [place] mail. HPI: The patient is a 67 year old female presenting with a request for a check of a specific area on the skin as follows: -Pt states when she takes her Kesimpta her face breaks out. When she stops taking the break out goes away but will come back when restart of medication Off and on for 9 months DERM HISTORY: no cancer PAST MEDICAL HISTORY Diagnosis Date Anxiety and depression Anxiety and depression Atrial fibrillation (HCC) Cardiomyopathy (HCC) Cervical myelopathy (HCC) CHF (congestive heart failure) (HCC) Cognitive impairment Colitis COPD (chronic obstructive pulmonary disease) (HCC) Diabetes (HCC) Dyslipidemia GI bleed History of loop recorder Hypertension IBS (irritable bowel syndrome) Multiple sclerosis (HCC) Myocardial infarct, old 03/2016 Obesity Pancreatitis 1978 Renal insufficiency RLS (restless legs syndrome) Tobacco dependence Urinary incontinence PAST SURGICAL HISTORY Procedure Laterality Date BACK SURGERY HX lower x3 CARPAL TUNNEL lt and rt COLONOSCOPY FLX DX W/COLLJ SPEC WHEN PFRMD 10/12/2014 Colonoscopy inpt [facility] COLONOSCOPY FLX DX W/COLLJ SPEC WHEN PFRMD 02/28/2015 Colonoscopy FINGER SURGERY HX thumb reconstructed KNEE SURGERY HX lt x2 PAST SURGICAL HISTORY OF partial amputation of big toe PAST SURGICAL HISTORY OF Left 01/25/2015 great toe removal PAST SURGICAL HISTORY OF Bilateral 08/2022 C3 and C6 nerve ablasions TONSILLECTOMY HX TUBAL LIGATION HX Medications and Allergies reviewed. PHYSICAL EXAM: The patient is pleasant, oriented x 3, in no acute distress. Exam performed of the face. Significant findings noted below, otherwise no suspicious lesions noted at this time. Head - Anterior (Face) Several excoriated papules scattered on face. IMPRESSION/PLAN: Folliculitis Head - Anterior (Face) Similar appearance to neurotic excoriations. Unable to determine original lesion. All areas have been scratched and opened. Advised to follow up 2-3 days after next injection of Kesimpta to determine an association and see any new lesions that aren't scabbed and scratched open. Will treat current episode with oral and topical antibiotics. See orders. Related Medications doxycycline monohydrate (MONODOX) 100 mg capsule Take 1 capsule by mouth two times a day for 7 days. mupirocin (BACTROBAN) 2 % ointment Apply to wound twice daily until healed. Other Procedures Placed This Encounter CONSULT TO DERMATOLOGY FOLLOW UP: approx 1 month The documentation for this note was completed by Connie Bustamante MA acting as scribe for Vaihsnavi Soria MD. January 23, 2023 4:42 PM. I agree with the Chief Complaint, ROS, and Past Histories independently gathered by the clinical application support analyst and the remaining scribed note accurately describes my personal service to the patient. Vaishnavi Soria MD Medical Decision Making: Problems: Low: Acute, uncomplicated illness or injury Risk: Moderate: Drug management Medical Decision Making Level: 3 - Low documented in this encounter [facility] 01-20-2023 Miscellaneous Notes Phone call placed follow up appointment scheduled, 03/06/2023 at 3:00 PM. Tashia Painting LPN documented in this encounter [facility] 01-19-2023 Miscellaneous Notes Phone call placed rang, clicked, call returned rang busy. Contacting patient to scheduled follow up with Viridiana Solorio. Tashia Painting LPN documented in this encounter [facility] 01-19-2023 Instructions Cameron Sher Jr., MD - 01/19/2023 9:00 AM EDT Your most recent body mass index (BMI) that we have on record is 29.26 kg/m2. Obstructive sleep apnea (BRYAN) worsens with an increase in weight; reduction in weight may improve or resolve your BRYAN. If you are not already seeking treatment, there are resources available at the [facility] such as a nutrition consultation or referral to weight management programs at our [facility]. Please let us know if we can assist with a referral. documented in this encounter [facility] 01-19-2023 History of Present illness Narrative NEW PATIENT (CONSULT) HISTORY AND PHYSICAL EXAM FIRST EVAL IN [facility] DEPT IN [facility] OVER 3 YEARS PRIMARY CARE PHYSICIAN: AUBREE MARINA MD (Inactive) REASON FOR CONSULT: BRYAN REFERRING PHYSICIAN: Bill Woods PA-C CHIEF COMPLAINT: BRYAN Consultation requested by Bill Woods PA-C for an opinion regarding chief complaint of Patient presents with: New Patient Evaluation and my final recommendations will be communicated back to the requesting physician by way of shared medical record or letter via US mail. HISTORY OF PRESENT ILLNESS: Elo Gray is a 67 year old female, BMI 29.26 kg/m2 with a PMH significant for MS for which patient is followed at the [facility] as well as BRYAN diagnosed in 2017 at [facility] with study showing AHI of 27 by CMS guidelines. PAP titration recommended CPAP at 14 cmH2O with EPR of 3 per review of records. Of note, pt also on Modafinil as Rx'd by the [facility].Pt appears to have had 30-40 pound weight loss since sleep studies above. Pt states had sleep study 8 months ago at [facility], and was placed on bilevel PAP therapy. I do not have study at initiation of visit. States she did not get the mask that was used during that study but did receive the bilevel PAP. Pt states someone told her about the Inspire so now she has couple questions. Pt requesting evaluation for Inspire device. She would also like a change in equipment (new mask) as well as DME closer to home. Pt has had PAP for 6 months but only used about half dozen time and states all do to the mask. Pt did not use PAP device Rx'd in 2018. Pt reports since I last saw her, lost , son moved in with her, had [place], attempted suicide and has afib for which she is on anticoagulation. States of late, health is doing pretty ok (both physical and mental). Pt states cannot unwind at night and her mind is running. Saw psychiatry and started on Seroquel which has helped. Currently falling asleep in about 30 minutes. Wakes during the night due to overactive bladder. Last night slept for 3.5 hours before first waking up. Wakes at 6AM with bedtime of about 10PM. When wakes in AM feels like wants to go back to sleep. Did eventually get most recent sleep study which was only a PAP titration with no baseline on 07/30/21. Pt was titraed on bilevel PAP at 14/8 through 20/14 cmH2O with AHI normalized or near normalized throughout the night. No baseline was performed despite prior study being 5+ years earlier. Pt does have RLS, and is taking Requip 1mg in afternoon and 2mg at bedtime. States no RLS with current meds. PLMI was 216.9 on 2021 sleep study. Pt on Percoet as well as Rx'd by PCP office per pt. States might doze off during arts and craft - states that her craft is rolling cigarettes. Depression Screening 01/11/2023 01/11/2023 01/15/2023 PHQ-2 Score 0 0 - PHQ-9 Score 4 4 - PED PHQ-9 01/11/2023 01/11/2023 01/15/2023 Little interest or pleasure in doing things - Not at all - Feeling down, depressed, or hopeless - Not at all - Trouble falling or staying asleep, or sleeping too much - Several days - Feeling tired or having little energy - Several days - Poor appetite or overeating - Not at all - Feeling bad about yourself - or that you are a failure or have let yourself or your family down - Not at all - Trouble concentrating on things, such as reading the newspaper or watching television - Several days - Moving or speaking so slowly that other people could have noticed. Or the opposite - being so fidgety or restless that you have been moving around a lot more than usual - Several days - Thoughts that you would be better off , or of hurting yourself in some way - Not at all - If you checked off any problems, how difficult have these problems made it for you to do your work, take care of things at home, or get along with other people? - Somewhat difficult - PHQ-9 Score - 4 (None-Minimal Depression) - [place] Sleepiness Scale 01/11/2023 01/11/2023 01/15/2023 Score - - Incomplete Insomnia Severity Index 01/11/2023 01/11/2023 01/15/2023 Score - - 13 ESS=12 per pt (with Modafinil) REVIEW OF SYSTEMS GENERAL:No weight loss, malaise or fevers. HEENT:Negative for frequent or significant headaches, No changes in hearing or vision, no nose bleeds or other nasal problems RESPIRATORY: Negative for cough, wheezing or shortness of breath. CARDIOVASCULAR: Negative for chest pain, leg swelling or palpitations. GASTROINTESTINAL: Negative for abdominal discomfort, blood in stools or black stools or change in bowel habits GENITOURINARY: No history of dysuria, frequency or incontinence MUSCULOSKELETAL: Chronic cervicalgia. NEUROLOGIC:See HPI. SKIN:Negative for lesions, rash, and itching. PSYCHIATRIC: See HPI. HEMATOLOGIC/LYMPHATIC/IMMUNOLOGIC :Negative for prolonged bleeding, bruising easily or swollen nodes. ENDOCRINE: Negative for cold or heat intolerance, polyuria, polydipsia and goiter. The remainder of the ROS was reviewed and is negative. LAB/IMAGING: Reviewed and include: WBC (k/uL) Date Value 07/25/2022 6.37 RBC (m/uL) Date Value 07/25/2022 4.42 Hemoglobin (g/dL) Date Value 07/25/2022 13.9 Hematocrit (%) Date Value 07/25/2022 43.0 MCV (fL) Date Value 07/25/2022 97.3 MCH (pg) Date Value 07/25/2022 31.4 MCHC (g/dL) Date Value 07/25/2022 32.3 RDW-CV (%) Date Value 07/25/2022 13.2 Platelet Count (k/uL) Date Value 07/25/2022 247 MPV (fL) Date Value 07/25/2022 9.9 Glucose (mg/dL) Date Value 01/14/2023 171 (H) BUN (mg/dL) Date Value 01/14/2023 19 Creatinine (mg/dL) Date Value 01/14/2023 0.63 Sodium (mmol/L) Date Value 01/14/2023 137 Potassium (mmol/L) Date Value 01/14/2023 4.5 Chloride (mmol/L) Date Value 01/14/2023 103 CO2 (mmol/L) Date Value 01/14/2023 25 Protein, Total (g/dL) Date Value 01/14/2023 5.8 (L) Albumin (g/dL) Date Value 01/14/2023 3.9 Calcium, Total (mg/dL) Date Value 01/14/2023 10.1 Alkaline Phosphatase (U/L) Date Value 01/14/2023 78 Bilirubin, Total (mg/dL) Date Value 01/14/2023 0.3 AST (U/L) Date Value 01/14/2023 12 (L) ALT (U/L) Date Value 01/14/2023 9 Hep C Antibody IA (no units) Date Value 02/27/2021 Negative MEDICATIONS: cyclobenzaprine (FLEXERIL) 5 mg tablet Take 1 tablet by mouth twice daily as needed for muscle spasm. losartan (COZAAR) 50 mg tablet 50 mg twice daily. carvedilol (COREG) 12.5 mg tablet Take 12.5 mg by mouth twice daily with meals. oxyCODONE-acetaminophen (PERCOCET) 5-325 mg tablet 1/2 tab po daily prn pain insulin lispro (HUMALOG KWIKPEN INSULIN) 100 unit/mL Use with meals based on PRE meal blood sugar SLIDING SCALE as needed #1 (1 for 50 over 150) ~20 units daily FARXIGA 10 mg tablet Take 1 tablet by mouth every morning. semaglutide (OZEMPIC) 2 mg/dose (8 mg/3 mL) pen injector Inject 2 mg subcutaneously one time a week. ofatumumab (KESIMPTA PEN) 20 mg/0.4 mL injection Inject 1 pen (0.4mL) under the skin once monthly donepezil (ARICEPT) 10 mg tablet Take 2 tablets by mouth once daily. Insulin Scarbro, Disposable, (BD ULTRAFINE III MINI PEN) 31 gauge x 3/16 Uses 4 per day with insulin injection. flash glucose sensor (FREESTYLE JANAY 2 SENSOR) kit Change sensor every 14 days. USE FOR CONTINUOUS GLUCOSE MONITORING. MULTIPLE INSULIN INJECTIONS. E11.9 cyanocobalamin (VITAMIN B-12) 1,000 mcg tab Take 1 tablet by mouth once daily. QUEtiapine (SEROQUEL) 50 mg tablet Take 100 mg by mouth daily at bedtime. ondansetron (ZOFRAN) 4 mg tablet Take 1 tablet by mouth every 8 hours as needed for nausea/vomiting. ferrous sulfate 325 mg (65 mg iron) tablet Take 1 tablet by mouth every 48 hours. rOPINIRole (REQUIP) 1 mg tablet Take 2 mg by mouth daily at bedtime. eluxadoline (VIBERZI) 100 mg tab Take 100 mg by mouth as needed. acetaminophen (TYLENOL) 500 mg tablet Take 500 mg by mouth every 6 hours as needed for pain. apixaban (ELIQUIS) 5 mg tab(s) Take 5 mg by mouth twice daily. albuterol HFA (PROVENTIL HFA, VENTOLIN HFA) 90 mcg/actuation inhaler Inhale 2 Puffs as instructed every 4 hours as needed for wheezing/shortness of breath. vibegron (GEMTESA) 75 mg tablet Take 75 mg by mouth once daily. nitroglycerin sublingual (NITROQUICK) 0.4 mg SL tablet Dissolve 0.4 mg under the tongue every 5 minutes as needed. pioglitazone (ACTOS) 30 mg tablet Take 30 mg by mouth once daily. pantoprazole DR (PROTONIX) 40 mg tablet Take 40 mg by mouth once daily. ondansetron orally disintegrating (ZOFRAN ODT) 4 mg disintegrating tablet Take 4 mg by mouth every 8 hours as needed for nausea/vomiting. DULoxetine (CYMBALTA) 30 mg capsule Take 30 mg by mouth twice daily. dicyclomine (BENTYL) 20 mg tablet Take 20 mg by mouth twice daily as needed. PROLIA 60 mg/mL once every 6 months. calcium carbonate (CALTRATE) 600 mg calcium (1,500 mg) tab Take 600 mg by mouth once daily. atorvastatin (LIPITOR) 40 mg tablet Take 40 mg by mouth once daily. ascorbic acid, vitamin C, (VITAMIN C) 500 mg tablet Take 1 tablet by mouth once daily. sucralfate (CARAFATE) 1 gram tablet Take 1 tablet by mouth four times daily. hydrOXYzine HCl (ATARAX) 50 mg tablet Take 1 tablet by mouth three times daily as needed. (Patient taking differently: Take 50 mg by mouth twice daily.) Cholecalciferol, Vitamin D3, 5,000 unit cap Take 1 capsule by mouth once daily. rOPINIRole (REQUIP) 1 mg tablet Take 1 mg by mouth daily with lunch. aspirin, enteric coated (ASPIRIN, ENTERIC COATED) 81 mg EC tablet Take 81 mg by mouth once daily. modafinil (PROVIGIL) 200 mg tablet Take 1 tablet by mouth once daily for 30 days. Alosetron HCl 0.5 mg tablet (Patient not taking: Reported on 01/14/2023) isosorbide mononitrate ER (IMDUR) 30 mg 24 hr tablet Take 1 tablet by mouth once daily. carvedilol (COREG) 6.25 mg tablet Take 1 tablet by mouth twice daily with meals for 14 days. (Patient taking differently: Take 12.5 mg by mouth twice daily with meals.) [DISCONTINUED] teriflunomide (AUBAGIO) 14 mg TAKE 1 TABLET BY MOUTH ONCE DAILY. HISTORIES PAST MEDICAL HISTORY Diagnosis Date Anxiety and depression Anxiety and depression Atrial fibrillation (HCC) Cardiomyopathy (HCC) Cervical myelopathy (HCC) CHF (congestive heart failure) (HCC) Cognitive impairment Colitis COPD (chronic obstructive pulmonary disease) (HCC) Diabetes (HCC) Dyslipidemia GI bleed History of loop recorder Hypertension IBS (irritable bowel syndrome) Multiple sclerosis (HCC) Myocardial infarct, old 03/2016 Obesity Pancreatitis 1978 Renal insufficiency RLS (restless legs syndrome) Tobacco dependence Urinary incontinence FAMILY HISTORY Problem Relation Age of Onset Cancer Father lung Cancer Mother pancreatic Multiple Sclerosis No Family History SOCIAL HISTORY Social History Tobacco Use Smoking status: Every Day Packs/day: 0.50 Years: 30.00 Additional pack years: 0.00 Total pack years: 15.00 Types: Cigarettes Start date: 01/04/1973 Smokeless tobacco: Never Tobacco comments: Less than 10 Vaping Use Vaping Use: Never used Substance Use Topics Alcohol use: No Drug use: No PHYSICAL EXAMINATION BP 124/75 Pulse 64 Resp 18 Wt 72.6 kg (160 lb) LMP 02/22/2000 (Approximate) SpO2 98% BMI 29.26 kg/m GENERAL EXAM: General appearance: NAD, pleasant. HEENT: NC/AT, nasal congestion absent, no oral lesions, membranes moist. Daley III NECK: ROM nml. Lungs: Mild scattered wheezes. CV: S1S2 appears RRR with suspected PVCs but cannot rule out afib. Extr: No cyanosis, clubbing or edema. Skin: Cool to touch. NEUROLOGICAL EXAM: General: Awake, alert, oriented x3 (person,place,time), speech fluent, no dysarthria; comprehension, naming, repetition intact. CN: PERRL, EOMI and without nystagmus, VFF to confrontation, facial sensation and strength are normal and symmetric, hearing is intact to finger rub bilaterally, palate and tongue movements are intact and symmetric. SCM and trapezius strength normal. Motor: Normal tone, bulk and strength (5/5) bilaterally (throughout extremities x4). Coordination: FNF, KAILEE intact. No tremors. Sensation: Light touch intact throughout. No evidence of neglect. Gait: Stable with normal stride and arm swing. Assessment and Plan: ASSESSMENT/PLAN: 1. Obstructive sleep apnea - ICD9: 327.23, ICD10: G47.33 (primary diagnosis) Patient with history of BRYAN as confirmed on sleep study in 2017. However, weight loss since then and no repeat baseline sleep study since that time. Instead PAP titration performed despite PAP non-compliance for the 5 years leading up to that study (PAP was discontinued by insurance for lack of use). Pt has lost weight over that time period and it is possible that BRYAN is not even present, but also possible that it is worse. Either way, cannot determine from bilevel PAP titration of 2021 as AHI was normalized on all tested PAP settings. Thus, at this time, recommending an in lab baseline PSG to attempt to confirm dx of BRYAN. If confirmed can continue bilevel PAP and will send Rx to new local DME ([employer] or [employer]) per pt request (pt also wanting [employer] [facility] as worn during the last titration). If not BRYAN, will d/c therapy. Note, pt has been non-compliant with PAP since receiving following 2021 sleep study. Discussed with patient: the physiology of OSAS, medical conditions associated with OSAS (DM, HTN, CAD, Depression, Stroke, Headache...) and treatment options (UPPP, Dental appliances, CPAP...). Advised patient to avoid activities that could harm self or others when tired/sleepy, including driving and/or operating heavy machinery. Encouraged weight loss, and continued compliance with other medications. 2. Insomnia, unspecified type - ICD9: 780.52, ICD10: G47.00 Multifactorial including underlying depression and anxiety for which pt is following with psychiatry. Improved on Seroquel. Defer treatment to psychiatry. 3. RLS (restless legs syndrome) - ICD9: 333.94, ICD10: G25.81 Elevated PLMs during sleep studies as above. Pt currently without RLS symptoms but also taking Requip 3mg daily as Rx'd by PCP. Pt not wanting to change meds. 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 Defer future adjustments to dosing to PCP at this time. Note pt never had Fe studies and will order with next labs. If low, would recommend supplementation as likely contributing factor for RLS. 4. Hypersomnia due to medical condition - ICD9: 327.14, ICD10: G47.14 On Provigil through [facility]. Defer further adjustments to them. However, if BRYAN confirmed, would not recommend continuation of Provigil without PAP compliance. Cameron Sher MD I spent a total of 45+ minutes on the date of the service which included preparing to see the patient, [id number] patient care, completing clinical documentation, obtaining and/or reviewing separately obtained history, performing a medically appropriate examination, counseling and educating the patient/family/caregiver, ordering medications, tests, or procedures, independently interpreting results (not separately reported), and communicating results to the patient/family/caregiver. 12/02/2022 PROMIS Global Health Physical Health Summary Physical health: Fair Everyday physical activity, ability: Moderately Fatigue: Moderate Pain level: 5 General health: Fair Social activities/roles, ability: Good Physical Health T-Score (Fair) Physical Health Percentile PROMIS Global Health Mental Health Summary Quality of life: Fair Mental health (mood,thinking): Good Social satisfaction: Good Emotional problems (anxious,depressed): Never Mental Health T-Score (Good) Mental Health Percentile (Minimal Depression) PHQ-9 Self-Harm: PROMIS PHYSICAL FUNCTION SCORE 01/08/2023 12/03/2022 Promis Physical Function Percentile 12 8 PROMIS PAIN INTERFERENCE SCORE 01/15/2023 12/03/2022 Promis Pain Interference Percentile 27* 16* Percentiles provide an indication of how a patient's score ranks in relation to the [place] general population. > 31st percentile is within normal limits or better *< 31st percentile is at least SD worse than population, which may be clinically relevant < 16th percentile is at least 1 SD worse than population and warrants attention Sleep Apnea Probability Snores loudly: Tired, fatigued or sleepy in daytime: Stops breathing or choking/gasping during sleep: High blood pressure: Sleep Apnea Probability Score: (Sleep study not recommended) documented in this encounter [facility] 01-16-2023 Miscellaneous Notes Phone call placed to update patient's DME company for BiPAP machine, reported not currently using. Tashia Painting LPN documented in this encounter [facility] 01-15-2023 History of Present illness Narrative Radiology Service Progress Note PATIENT NAME: Elo Gray DATE OF SERVICE: January 15, 2023 TIME: 12:01 PM PATIENT IDENTITY VERIFICATION COMPLETED USING TWO (2) IDENTIFIERS: Name and Date of confirmed by patient verbally. FALL SCREENING: Has the patient had 2 falls in the last year or 1 fall with injury or currently using an Ambulatory Assistive Device (Walker, Cane, Wheelchair, Crutches, etc.)? Yes, Patient High Risk for Falls What interventions were put in place to prevent falls during this visit? Instructed Patient to Call for Help if Needed, Offered Assistance with Transfers/Clothing, Instructed Patient to Remain Seated (Not on Exam Table) Until Exam, and Increased Observations by Caregivers PATIENT GENDER DATA: Female. status: : No status: NO. PATIENT RELEVANT IMPLANT DATA REVIEWED: Not Applicable RADIOLOGY DEPARTMENT: General X-ray: Exam(s) Completed: Spine X-Ray(s): Cervical AP / LAT / OBL / FLEX-EXT and Thoracic and AP/LAT/FLEX/EXT LUMBAR PERIPHERAL IV DATA: Not applicable SIGNED BY: RT Loulou(R) January 15, 2023 12:01 PM documented in this encounter [facility] 01-15-2023 History of Present illness Narrative Physical Medicine and Rehabilitation New patient January 15, 2023 SUBJECTIVE HISTORY OF PRESENT ILLNESS: Elo Gray is a 67 year old woman evaluated for back pain Folliowing with pain management, Dr. Heather Davis Prior 3 low back (unclear dates, completed in [place], [facility]) and 1 cervical surgeries (2016 in [place]) Previous MRI C/T spine and brain 08/22/22: Multiple intracranial white matter lesions compatible with multiple sclerosis. No new T2 lesions and no new enhancing lesions. Mild parenchymal volume loss. Other Significant Intracranial Findings: None No evidence of demyelinating disease in the cervical and upper thoracic spinal cord. No new T2 intramedullary lesions and no new enhancing intramedullary lesions. Mild upper spinal cord volume loss for age. Other Significant Cervical Spine Findings: No significant cervical canal or foraminal stenosis. Stable postop changes of laminectomies at C4-C6 and posterior fusion. Cervical Anatomic Variant: None. Assume 7 cervical vertebrae with counting from the craniocervical junction. Alignment: Alignment is anatomic. Stable severe loss of disc height at C5-C6 and C6-C7 reflecting degeneration. Stable moderate loss of disc height at C7-T1 reflecting degeneration Again noted are postoperative changes of posterior spinal fixation rods and pedicle screws extending from C4 through C6. Stable laminectomies are identified at C4-C6. No pseudomeningocele. Craniocervical Junction: Craniocervical junction is normal. Cord Findings: The visualized cord is within normal limits of signal intensity and morphology. Cord T2 Plaque [place]: None New T2 Lesions: None Interval Cord Improvement: None New Cord Enhancing Lesions: None Cord Volume Loss: Mild Bone marrow signal/fracture: No evidence of pathologic marrow infiltration. No evidence of prior fracture. Cervical soft tissues: The paraspinal soft tissues are within normal limits. Cervical Canal and foramina: No significant canal or foraminal stenosis in the visualized spine. No clear evidence of demyelination on this study however there is mild chronic cord compression at T10-T11 due to combination of degenerative disc and facet disease. There is questionable increased signal within the cord at this level suggesting myelomalacia. No pathologic enhancement. Localizer images: Unremarkable. Alignment: Alignment is anatomic. Moderate loss of disc height at T5-T6 reflecting degeneration. Cord: There is mild chronic cord compression at T10-T11 due to the presence of a disc bulge and redundant ligamentum flavum (series 19 image 9 and series 21 image 9). There is questionable increased signal within the cord at this level raising the specter of myelomalacia. Bone marrow signal/fracture: Again noted are-type II endplate changes adjacent to T10-T11 and T11-T12 and T12-L1. No evidence of pathologic marrow infiltration. Chronic less than 30% anterior compression deformity of T11 without dorsal displacement the posterior wall. Thoracic paraspinal soft tissues: The paraspinal soft tissues are within normal limits. Canal and foramina: Mild canal stenosis due to bulges at T3-T4, T5-T6, T10-T11 and T11-T12. Her pain level is currently 5 on a scale of 0-10. The pain is located in the midline C spine and midline lumbar (intermittent only with sitting in low back x 1 year, slowly worse over time) She suspects neuropathy in feet with N/T Going to PT and this is helping. Alleviating Factors: Ice heat Zanaflex hs helps with sleep, but cannot take during day Percocet - 5 doses a month Prn tylenol Prior Therapy: 11/11/22 - left genicular nerve blocks S/p RFA cervical x 2 (C7-T1) Fusion C3-6 in 2016 Lower back sx L4-S1 (discectomy) 1983 Left knee pain (s/p sx x 2; meniscal repair x 2) H/o b/l ankle fx about 4 years ago Smokes 3/4 ppd FUNCTIONAL STATUS: independent YELLOW & BLUE FLAGS No-Neg Attitude; Back Pain is Disabling No-Avoiding Activity (for Fear of Pain) No-Depression or Anxiety Disorders No-Social Problems No-Substance Use Disorder No-Job Dissatisfaction No-Financial Disincentives Patient Entered Questionnaires PROMIS Score Percentiles Physical Health 12/03/2022 01/08/2023 Physical Function Percentile 8 12 Fatigue Percentile - 24* Pain Interference Percentile 16* - PROMIS SOCIAL ROLE SCORE 01/08/2023 Social Role Satisfaction Percentile 14 PROMIS Global Health Scale 07/01/2017 12/02/2022 Physical Health Percentile 1 10 Mental Health Percentile 2 34 Percentiles provide an indication of how the patient's score ranks in relation to the general population. Higher percentile rankings indicate better function/quality of life. 50th percentile is the average of the general population and indicates half of respondents had a worse score. Depression Screening: PHQ-9 07/01/2017 01/11/2023 01/11/2023 Score 22 4 4 PHQ-9 Self Harm 01/11/2023 Question 9 Not at all PHQ-9 Self-Harm (Item 9) response options: 0 Not at all 1 Several days 2 More than half the days 3 Nearly every day PHQ-9 Levels: 0-4 No - mild depression 5-9 Mild depression 10-14 Moderate depression 15-19 Moderately severe depression 20-27 Severe depression ACTIVE PROBLEM LIST Colitis Htn (Hypertension) Ms (Multiple Sclerosis) (Hcc) Ulcerative Colitis (Hcc) Diabetes Mellitus (Hcc) Paroxysmal A-Fib (Hcc) Tobacco Dependence Dyslipidemia Anxiety and Depression Cardiomyopathy (Hcc) Lv (Left Ventricular) Mural Thrombus Obesity, Class I, Bmi 30-34.9 Chronic Fatigue PAST MEDICAL HISTORY Diagnosis Date Anxiety and depression Anxiety and depression Atrial fibrillation (HCC) Cardiomyopathy (HCC) Cervical myelopathy (HCC) CHF (congestive heart failure) (HCC) Cognitive impairment Colitis COPD (chronic obstructive pulmonary disease) (HCC) Diabetes (HCC) Dyslipidemia GI bleed History of loop recorder Hypertension IBS (irritable bowel syndrome) Multiple sclerosis (HCC) Myocardial infarct, old 03/2016 Obesity Pancreatitis 1978 Renal insufficiency RLS (restless legs syndrome) Tobacco dependence Urinary incontinence PAST SURGICAL HISTORY Procedure Laterality Date BACK SURGERY HX lower x3 CARPAL TUNNEL lt and rt COLONOSCOPY FLX DX W/COLLJ SPEC WHEN PFRMD 10/12/2014 Colonoscopy inpt [facility] COLONOSCOPY FLX DX W/COLLJ SPEC WHEN PFRMD 02/28/2015 Colonoscopy FINGER SURGERY HX thumb reconstructed KNEE SURGERY HX lt x2 PAST SURGICAL HISTORY OF partial amputation of big toe PAST SURGICAL HISTORY OF Left 01/25/2015 great toe removal PAST SURGICAL HISTORY OF Bilateral 08/2022 C3 and C6 nerve ablasions TONSILLECTOMY HX TUBAL LIGATION HX Social History Tobacco Use Smoking status: Every Day Packs/day: 0.50 Years: 30.00 Additional pack years: 0.00 Total pack years: 15.00 Types: Cigarettes Start date: 01/04/1973 Smokeless tobacco: Never Tobacco comments: Less than 10 Vaping Use Vaping Use: Never used Substance Use Topics Alcohol use: No Drug use: No FAMILY HISTORY Problem Relation Age of Onset Cancer Father lung Cancer Mother pancreatic Multiple Sclerosis No Family History ALLERGIES Allergen Reactions Aspirin Other: See Comments Indomethacin Other: See Comments Abilify [Aripiprazo* Other: See Comments Excessive drooling Clindamycin Intolerance Darvocet A500 [Prop* Intolerance Imitrex [Sumatripta* Vomiting BP went down Iodinated Contrast * Other: See Comments Iodine Intolerance Metformin GI Upset Stomach spasms Propoxyphene Other: See Comments Trazodone Intolerance Unable to wake up CURRENT MEDICATIONS: tiZANidine (ZANAFLEX) 2 mg tablet TAKE 1 TABLET BY MOUTH ONCE DAILY NEEDED for muscle spasms losartan (COZAAR) 50 mg tablet 50 mg twice daily. carvedilol (COREG) 12.5 mg tablet Take 12.5 mg by mouth twice daily with meals. oxyCODONE-acetaminophen (PERCOCET) 5-325 mg tablet 1/2 tab po daily prn pain insulin lispro (HUMALOG KWIKPEN INSULIN) 100 unit/mL Use with meals based on PRE meal blood sugar SLIDING SCALE as needed #1 (1 for 50 over 150) ~20 units daily FARXIGA 10 mg tablet Take 1 tablet by mouth every morning. semaglutide (OZEMPIC) 2 mg/dose (8 mg/3 mL) pen injector Inject 2 mg subcutaneously one time a week. ofatumumab (KESIMPTA PEN) 20 mg/0.4 mL injection Inject 1 pen (0.4mL) under the skin once monthly modafinil (PROVIGIL) 200 mg tablet Take 1 tablet by mouth once daily for 30 days. donepezil (ARICEPT) 10 mg tablet Take 2 tablets by mouth once daily. Insulin Scarbro, Disposable, (BD ULTRAFINE III MINI PEN) 31 gauge x 3/16 Uses 4 per day with insulin injection. flash glucose sensor (FREESTYLE JANAY 2 SENSOR) kit Change sensor every 14 days. USE FOR CONTINUOUS GLUCOSE MONITORING. MULTIPLE INSULIN INJECTIONS. E11.9 Alosetron HCl 0.5 mg tablet (Patient not taking: Reported on 01/14/2023) cyanocobalamin (VITAMIN B-12) 1,000 mcg tab Take 1 tablet by mouth once daily. QUEtiapine (SEROQUEL) 50 mg tablet Take 100 mg by mouth daily at bedtime. ondansetron (ZOFRAN) 4 mg tablet Take 1 tablet by mouth every 8 hours as needed for nausea/vomiting. isosorbide mononitrate ER (IMDUR) 30 mg 24 hr tablet Take 1 tablet by mouth once daily. ferrous sulfate 325 mg (65 mg iron) tablet Take 1 tablet by mouth every 48 hours. carvedilol (COREG) 6.25 mg tablet Take 1 tablet by mouth twice daily with meals for 14 days. (Patient taking differently: Take 12.5 mg by mouth twice daily with meals.) rOPINIRole (REQUIP) 1 mg tablet Take 2 mg by mouth daily at bedtime. eluxadoline (VIBERZI) 100 mg tab Take 100 mg by mouth as needed. acetaminophen (TYLENOL) 500 mg tablet Take 500 mg by mouth every 6 hours as needed for pain. apixaban (ELIQUIS) 5 mg tab(s) Take 5 mg by mouth twice daily. albuterol HFA (PROVENTIL HFA, VENTOLIN HFA) 90 mcg/actuation inhaler Inhale 2 Puffs as instructed every 4 hours as needed for wheezing/shortness of breath. vibegron (GEMTESA) 75 mg tablet Take 75 mg by mouth once daily. nitroglycerin sublingual (NITROQUICK) 0.4 mg SL tablet Dissolve 0.4 mg under the tongue every 5 minutes as needed. [DISCONTINUED] teriflunomide (AUBAGIO) 14 mg TAKE 1 TABLET BY MOUTH ONCE DAILY. pioglitazone (ACTOS) 30 mg tablet Take 30 mg by mouth once daily. pantoprazole DR (PROTONIX) 40 mg tablet Take 40 mg by mouth once daily. ondansetron orally disintegrating (ZOFRAN ODT) 4 mg disintegrating tablet Take 4 mg by mouth every 8 hours as needed for nausea/vomiting. DULoxetine (CYMBALTA) 30 mg capsule Take 30 mg by mouth twice daily. dicyclomine (BENTYL) 20 mg tablet Take 20 mg by mouth twice daily as needed. PROLIA 60 mg/mL once every 6 months. calcium carbonate (CALTRATE) 600 mg calcium (1,500 mg) tab Take 600 mg by mouth once daily. atorvastatin (LIPITOR) 40 mg tablet Take 40 mg by mouth once daily. ascorbic acid, vitamin C, (VITAMIN C) 500 mg tablet Take 1 tablet by mouth once daily. sucralfate (CARAFATE) 1 gram tablet Take 1 tablet by mouth four times daily. hydrOXYzine HCl (ATARAX) 50 mg tablet Take 1 tablet by mouth three times daily as needed. (Patient taking differently: Take 50 mg by mouth twice daily.) Cholecalciferol, Vitamin D3, 5,000 unit cap Take 1 capsule by mouth once daily. rOPINIRole (REQUIP) 1 mg tablet Take 1 mg by mouth daily with lunch. aspirin, enteric coated (ASPIRIN, ENTERIC COATED) 81 mg EC tablet Take 81 mg by mouth once daily. REVIEW OF SYSTEMS: GENERAL: Denies fever, chills malaise and weight loss. HEENT: No recent change in vision or hearing. CARDIOVASCULAR: Denies chest pain, history of A-fib, valvular disease, or pacemaker/ICD. RESPIRATORY: Denies SOB, sputum production, and hemoptysis. GI: Denies GI ulcers, inflammatory disease, or liver disease. : Denies change in frequency or urgency, kidney disease, and burning with urination. MUSCULOSKELETAL: Negative for joint pain or swelling, back pain or muscle pain. SKIN: Denies rash or itching. PSYCHOLOGICAL: Denies uncontrolled depression or anxiety. NEURO: Denies CVA, seizures, headaches. ENDOCRINE: Denies diabetes, thyroid disease. HEMATOLOGY/LYMPHOLOGY: Denies cancer, bleeding or clotting disorders, anemia,and DVT's. ALLERGIC/IMMUNOLOGICAL: Denies risks for infection, or recent MRSA infections. OBJECTIVE: PHYSICAL EXAM BP 141/72 (BP Site: Left Arm, BP Position: Sitting, BP Cuff Size: Large Adult) Pulse (!) 59 LMP 02/22/2000 (Approximate) SpO2 98% GENERAL APPEARANCE: age appropriate appearance, no apparent distress. Smells of smoke NEURO PSYCH: Mood pleasant. Benign affect. CARDIOVASCULAR: Palpable pulses. No edema noted. No varicosities. SKIN: Head, neck, trunk, and extremities dry, intact and without lesions. Well healed posterior cervical and lumbar incisions MUSCULOSKELETAL VISUAL INSPECTION CERVICAL: WNL THORACIC: very kyphotic LUMBAR: reduced lordosis PALPATION: SPINOUS PROCESS: No pain. PARASPINALS: No pain. SPINE ROM: LUMBAR ROM: reduced ROM Without Pain CERVICAL ROM: Full ROM Without Pain MUSCLE BULK: Normal and symmetrical in the upper & lower extremities. MUSCLE TONE: Normal. MOTOR: 5/5 in all muscle groups. SAB/EF/EE/FF/HF/KE/DF/PFs SENSORY: Normal sensory exam to LT in limbs GAIT:slow rui, stooped, antalgic REFLEXES: +2 to bilateral bi, br, knees PROPRIOCEPTION: Normal. LONG TRACT SIGNS: No clonus. No Hoffmans. STRAIGHT LEG TEST: Ipsilateral: Negative. PERIPHERAL JOINT ROM: HIP ROM: ROM Without Pain (-) JLUIS + patricks Data Review: [facility] records independently reviewed ASSESSMENT/PLAN 67 yo woman with PMH anxiety, depression, afib on eliquis, CHrEF 2/2 CM, colitis, COPD, DM, HPL, h/o GIB, HTN, h/o [place], obesity, pancreatitis, RLS, MS, cervical myelopathy, h/o cervical fusion C3C6 x 1 and lumbar fusion x 3 with evident fusion at L4L5 (apparent graft) Cervical , thoracic, lumbar xr to r/o any fusion issues/sublux and to look at kyphosis in T spine, which above the lumbar fusion but suspect the kyphosis developed with positioning above the lumbar fusion and the back pain a product of kyphosis and thinning of soft tissue in low back from aging that is making upper lumbar SP more prominent and should cushion with chair cushion. The cervical spine issues more likely myofascial and scar sensitivity. Lidocaine TD and muscle relaxers- prn zanaflex but making her sleepy and so will switch to skelaxin but cannot use with cymbalta, she has tolerated flexeril in the past Patient understands above plan; questions asked and answered. Medication options, including side effects, were discussed in detail. Education was given regarding signs and symptoms that would indicate a serious change in condition, and they were instructed to seek care immediately should these arise. Patient agrees to plan as noted above. These notes are used for the purpose of medical documentation and that for use for other medical providers. Jargon expressed here is intentioned for use under this context. Meka Webb MD. I spent a total of 55 minutes on the date of the service which included preparing to see the patient, [id number] patient care, completing clinical documentation, performing a medically appropriate examination, counseling and educating the patient/family/caregiver, and ordering medications, tests, or procedures. Consultation requested by JOHN Echavarria for an opinion regarding back pain. My final recommendations will be communicated back to the requesting physician by way of shared medical record or letter via US mail documented in this encounter [facility] 01-14-2023 History of Present illness Narrative [facility] Refill Assessment Medication(s): Kesimpta Patient's current medication list and adherence status to current therapy were reviewed by Specialty Pharmacy clinical pharmacist to identify any new drug interactions or non-compliance to therapy. Therapy continues to be appropriate for disease, patient response, and medical condition. Verification of therapeutic benefit and effectiveness with current therapy was completed. Adverse events, barriers in adherence, and side effects were assessed and addressed if applicable. Will proceed with refill with no changes in therapy - patient progressing towards achieving therapeutic goals based on medication-specific laboratory parameters, disease state markers and outcomes. Payroll Services Analyst Assessment Patient confirmed: Yes Med/dose confirmed: Yes Supplies needed: No supplies needed Estimated days supply on hand: 0 Copay amount: 0 Payment confirmed: Yes Delivery method: FedEx Signature required: No Delivery address: [address], [place] [address] Delivery date: 01/22/23 Questions or concerns for the pharmacist?: No [facility] Specialty Pharmacy Visit Assessment - Neurology: Assessment to use: Refill Vaccination Assessment: Date of influenza vaccination reminder: 06/23/2022 Date of most recent vaccination assessment: 06/23/2022 Fatuma Vásquez documented in this encounter [facility] 01-14-2023 History of Present illness Narrative Images from the original note were not included. [facility] MULTIPLE SCLEROSIS FOLLOWUP/ESTABLISHED PATIENT VISIT PRINCIPAL NEUROLOGIC DIAGNOSIS: Multiple sclerosis DISEASE SUMMARY Date of onset: 12/1998 Date of diagnosis of MS: 1998 Disease course at onset: Progressive with relapses Current disease course: Progressive with relapses Previous disease therapies: Glatiramer acetate 2002, [id number], 1819-5107 Fingolimod 07/2014-04/2016 (switched because of heart issues - had heart attack) Teriflunomide 7 mg 04/2016-10/2016 Prednisone x 10 days 03/2017 IVMP 01/25/17 x 1 dose Teriflunomide 14 mg daily Current disease therapy: Kesimpta (started 01/2022) Most recent MRI brain: 08/22/22 Most recent MRI cervical spine: 08/22/22 Most recent MRI thoracic spine: 08/22/22 CSF: 1998 JCV serology result and date: NA CHIEF COMPLAINT: Follow-up on MS disease modifying therapy INTERVAL HISTORY: Usual treating team: Pako/Carlos The patient is accompanied by self. The patient was last seen 12/03/22, currently taking Kesimpta . Since the patient's last visit the patient reports overall feeling stable. Thinks the Kesimpta is making her face blister and then turns into sores. Only gets them on her face though (no where else on body) Diabetes under better control. Following with endocrinology Started counseling again, which has been helpful [employer] society helping with cooling vest/head scarf. Also helping cover cost of bathroom renovation Seeing cardiology for follow-up and mammogram in January SUBJECTIVE & REVIEW OF SYSTEMS: Neuro-QoL Functions (higher=better functioning) Flowsheet Row Office Visit from 01/14/2023 in Neurology Office Visit from 09/03/2022 in Neurology Office Visit from 11/14/2021 in [facility] Upper Extremity Domain T Score 41 43 33.84 Lower Extremity Domain T Score 39 39 38.83 Cognitive Function Domain T Score 40 40 39.53 Positive Affect Well Being T Score -- -- -- Ability To Participate In Social Roles T Score 42 42 42.88 Satisfaction With Social Roles T Score 45 46 42.46 Neuro-QoL Symptoms (higher=worse symptoms) Flowsheet Row Office Visit from 01/14/2023 in Neurology Office Visit from 09/03/2022 in Neurology Office Visit from 11/14/2021 in [facility] Sleep Domain T Score 61 63 63.25 Fatigue Domain T Score 54 60 56.18 Anxiety Domain T Score 49 50 54.39 Depression Domain T Score 45 46 52.59 Stigma Domain T Score 59 63 59.93 Emotional Behavior Dyscontrol T Score -- -- -- *NeuroQoL is a multi-domain patient-reported quality of life questionnaire. PHQ-9 Flowsheet [facility] Office Visit from 01/14/2023 in Neurology Office Visit from 07/01/2017 in [facility] PHQ-9 Score 4 22 *PHQ-9 is a questionnaire for depressive symptoms, with scores 0-4 indicating none, 5-9 mild, 10-14 moderate, 15-19 moderately severe, and 20-27 severe symptoms. PROMIS-10 Flowsheet Row Office Visit from 12/03/2022 in Neurology Office Visit from 07/01/2017 in [facility] Global Physical Health T Score 37.4 26.7 Global Mental Health T Score 45.8 28.4 0-10 Standard Pain Scale 3 2 *PROMIS-10 is a patient-reported quality of life measure, typically reported as physical and mental domains. Here scores are expressed as percentiles, where the lowest possible score is one, the highest possible score is 99, and 50 is average. Refer to patient-entered data. Mood: PHQ9 responses reviewed and appear below Pain related to today's visit:reviewed on nursing intake documentation PAST HISTORY was reviewed and updated: PAST MEDICAL HISTORY Diagnosis Date Anxiety and depression Anxiety and depression Atrial fibrillation (HCC) Cardiomyopathy (HCC) Cervical myelopathy (HCC) CHF (congestive heart failure) (HCC) Cognitive impairment Colitis COPD (chronic obstructive pulmonary disease) (HCC) Diabetes (HCC) Dyslipidemia GI bleed History of loop recorder Hypertension IBS (irritable bowel syndrome) Multiple sclerosis (HCC) Myocardial infarct, old 03/2016 Obesity Pancreatitis 1978 Renal insufficiency RLS (restless legs syndrome) Tobacco dependence Urinary incontinence PAST SURGICAL HISTORY Procedure Laterality Date BACK SURGERY HX lower x3 CARPAL TUNNEL lt and rt COLONOSCOPY FLX DX W/COLLJ SPEC WHEN PFRMD 10/12/2014 Colonoscopy inpt [facility] COLONOSCOPY FLX DX W/COLLJ SPEC WHEN PFRMD 02/28/2015 Colonoscopy FINGER SURGERY HX thumb reconstructed KNEE SURGERY HX lt x2 PAST SURGICAL HISTORY OF partial amputation of big toe PAST SURGICAL HISTORY OF Left 01/25/2015 great toe removal PAST SURGICAL HISTORY OF Bilateral 08/2022 C3 and C6 nerve ablasions TONSILLECTOMY HX TUBAL LIGATION HX MEDICATIONS and ALLERGIES were reviewed and updated. SOCIAL HISTORY was reviewed and updated: Social History Tobacco Use Smoking status: Every Day Packs/day: 0.50 Years: 30.00 Additional pack years: 0.00 Total pack years: 15.00 Types: Cigarettes Start date: 01/04/1973 Smokeless tobacco: Never Tobacco comments: Less than 10 Living situation: Living at home without assistance Employment Status / Disability: Disabled, permanently or temporarily OBJECTIVE: VITALS & WELLNESS: BP 141/63 Pulse (!) 55 Resp 20 Ht 157.5 cm (5' 2) Wt 72.6 kg (160 lb) LMP 02/22/2000 (Approximate) BMI 29.26 kg/m MSPT Performance Tests 11/14/2021 07/01/2017 Processing Speed Total Number Correct 31 - Dominant hand - Right hand MDT Left Hand Time - 56.04 MDT Right Hand Time - 42.93 Walking Speed Test (25 feet) - 43.25 EXAM: Refer to patient-entered performance data RESULTS: Monitoring labs: CBC + Diff Component Value Date WBC 6.37 07/25/2022 HB 13.9 07/25/2022 HCT 43.0 07/25/2022 PLT 247 07/25/2022 ABSLYMPH 1.41 07/25/2022 CMP Component Value Date AST 12 (L) 01/14/2023 GLUC 171 (H) 01/14/2023 BUN 19 01/14/2023 CREAT 0.63 01/14/2023 NA 137 01/14/2023 K 4.5 01/14/2023 CHLOR 103 01/14/2023 ALT 9 01/14/2023 Lab Results Component Value Date JCV Antibody Positive (A) 02/27/2021 JCV Index Value 3.46 (H) 02/27/2021 Discrete MRI Results Component Value Date Brain New T2 Lesions None 08/22/2022 Brain New T2 Lesions None 08/22/2022 Brain Enhancing Lesions None 08/22/2022 Brain Enhancing Lesions None 08/22/2022 Cervical Spine New T2 Lesions None 08/22/2022 Cervical Spine New T2 Lesions None 08/22/2022 Cervical spine enhancing lesions None 08/22/2022 Cervical spine enhancing lesions None 08/22/2022 ASSESSMENT/PLAN: Elo Gray is a 67 year old female with Multiple Sclerosis. Patient in [facility] for DMT. Reports good compliance. Will obtain labs today. Will refer to dermatology for unclear etiology of skin sores only on face. MRI orbit reviewed with Dr. Kinsey from 01/07/23 and appears stable. Repeat brain MRI in 1 year or sooner if needed. Continue to follow with ophthalmology as directed. MRI of the brain and/or spinal cord is being ordered to evaluate for efficacy of multiple sclerosis (MS) disease modifying therapy. Disease activity in MS is often not immediately detectable on history or examination, but is sensitively identified on MRI. If identified, new or active MS lesions on MRI may represent suboptimal response to MS therapy, and would change medical management. Strongly encouraged continuing to follow with counselor. Exam is:Stable, continue with current IMDT. The prescribed disease modifying therapy for MS is having the expected benefit in this patient based on imaging and clinical criteria, and will be continued or refilled, with planned follow-up at approximately 6-month intervals to continue to assess response on an ongoing basis. Continue [facility] Labs today MRI annually Consult dermatology Specialists as directed Patient Health Education Discussed at Visit: Aerobic exercise, Emotional Health/Wellness, and Risks and Common side effects of MS medications Follow-up: as planned I spent a total of 30 minutes on the date of the service which included preparing to see the patient, [id number] patient care, completing clinical documentation, obtaining and/or reviewing separately obtained history, performing a medically appropriate examination, counseling and educating the patient/family/caregiver, ordering medications, tests, or procedures, and communicating results to the patient/family/caregiver. Bill Woods PA-C The chart was reviewed for possible participation in the following studies:None documented in this encounter [facility] 01-13-2023 Miscellaneous Notes Returned call to patient, verified name and . Patient states she is scheduled to see her eye ing Dr John Claudio next week, eye doctor. They would like Orbital MRI results to them. , phone [phone]. Faxed with confirmation. Patient would like to note she had a difficulty time completing the Orbital MRI at the [facility] location. She indicates she was not positioned with two cages/wedges to stabilize her head and they had to keep stopping the study to tell her not to move. She has excessive saliva so she was having difficulty remaining still because she had to keep swallowing. She feels better support around her head would have made the MRI an easier time. She does not wish to have future MRIs completed at this location. Patient also has heard from the [facility] and they are helping her convert her bathroom to be more accessible and she is thrilled. She will keep follow up appointment as scheduled with Bill Woods PA-C tomorrow. Maribell Cunha RN documented in this encounter [facility] 01-07-2023 History of Present illness Narrative Radiology Service Progress Note DATE OF SERVICE: January 07, 2023 TIME: 2:22 PM PATIENT IDENTITY VERIFICATION COMPLETED USING TWO (2) STANDARD IDENTIFIERS: Name and Date of confirmed by patient verbally. FALL SCREENING: Has the patient had 2 falls in the last year or 1 fall with injury or currently using an Ambulatory Assistive Device (Walker, Cane, Wheelchair, Crutches, etc.)? Yes, Patient High Risk for Falls What interventions were put in place to prevent falls during this visit? Non-Skid Socks Used, Yellow Falls Risk Wristband Applied, Instructed Patient to Call for Help if Needed, Offered Assistance with Transfers/Clothing, Instructed Patient to Remain Seated (Not on Exam Table) Until Exam, and Increased Observations by Caregivers PATIENT GENDER DATA: Female. status: : No status: NO. PATIENT RELEVANT IMPLANT DATA REVIEWED: Yes ALLERGIES: Reviewed and unchanged CONTRAST ALLERGY: NO. EXAM: MRI - CONTRAST TYPE: GROUP II PERIPHERAL IV DATA: Ambulatory: A peripheral IV was started in the Right antecubital site with a Butterfly: 23 gauge. RADIOLOGY DEPARTMENT: MR; Exam(s) Completed: Head: Orbit/Sinus SIGNATURE: Gracie Moran PATIENT NAME: Elo Gray DATE: January 07, 2023 TIME: 2:22 PM documented in this encounter [facility] 12-22-2022 Miscellaneous Notes Returned call to patient, verified name and . Reviewed new date/time of MRI at [facility] location 9-14. She indicates she is willing to drive 1.5 hours because she wants the testing completed KASEY. Patient reports onset of itchy red rash all over face about 2 weeks ago. The rash is on both right and left sides of face, across forehead, bilateral cheeks, chin and around lips. She states it is improving, and she saw her PCP who gave her tubes of Safetek Cream which have really improved the appearance of the rash. She will contact office if rash returns or worsens. Routing to care team to update. Maribell Cunha RN Ramin Call Name of caller : Elo Gray Relationship to patient: Self Return call phone number : Reason for call : Returning call documented in this encounter [facility] 12-22-2022 Miscellaneous Notes Images from the original note were not included. Bill Woods PA-C You 3 days ago Okay to move up MRI orbit. Uncontrolled BP can possibly be a factor in vision fluctuations. Would recommend close monitoring of BP at home. Called patient, verified name and . Notified of above. She states she as able to get more sleep this weekend and feels much improved since last week. She will call [facility] later today to try to move up MRI Orbit date. She will contact office for any other questions or needs. Maribell Cunha RN Patient called office. Verified name and . Patient reports onset of worsening symptoms again. She had visit at end of October with Lisa Morataya CNP and was prescribed Medrol Dose Pack. Patient indicates it is hard to think, speech is worse, she is word finding. Patient reports her balance is off but denies falls. She reports ongoing vision issues, most recently episodes of blurred vision that resolve when she stops doing whatever she is doing when the episode occurs. She indicates her eye doctor told her to follow back up with us. MRI Orbits not scheduled until 01-27-23. Of note, she received new bilateral hearing aids and her hearing is now excellent, too good. Patient is unsure if this is related to her worse symptoms, but earlier this week she had a new nurse fill her pill minder and multiple medications were filled incorrectly or missing: Coreg, 1 Aricept instead of 2 and also Viberzi. She missed or took alternate doses of medication for 2.5 days before it was discovered. She had a hypertensive episode yesterday morning and had to take a SL Nitro to reduce her blood pressure. missed 2.5 days Thursday, Thursday, yesterday morning then fixed. Routing to Bill Woods PA-C to review and advise. Maribell Cunha RN documented in this encounter [facility] 12-19-2022 History of Present illness Narrative [facility] Refill Assessment Medication(s): Demian Patient's current medication list and adherence status to current therapy were reviewed by Specialty Pharmacy clinical pharmacist to identify any new drug interactions or non-compliance to therapy. Therapy continues to be appropriate for disease, patient response, and medical condition. Verification of therapeutic benefit and effectiveness with current therapy was completed. Adverse events, barriers in adherence, and side effects were assessed and addressed if applicable. Will proceed with refill with no changes in therapy - patient progressing towards achieving therapeutic goals based on medication-specific laboratory parameters, disease state markers and outcomes. Payroll Services Analyst Assessment Patient confirmed: Yes Med/dose confirmed: Yes Supplies needed: No supplies needed Missed doses: No Estimated days supply on hand: 0 Next cycle/dose due: 12/29/22 Copay amount: 0 Payment confirmed: Yes Delivery method: FedEx Signature required: Required (, Medicaid, patient preference) Delivery address: [address]; [place], [place] Delivery date: 12/23/22 Questions or concerns for the pharmacist?: No [facility] Specialty Pharmacy Visit Assessment - Neurology: Assessment to use: Refill Vaccination Assessment: Date of influenza vaccination reminder: 06/23/2022 Date of most recent vaccination assessment: 06/23/2022 Deja Hendrix ([employer]) documented in this encounter [facility] 12-18-2022 Miscellaneous Notes Spoke with pt. She would like to keep the Sleep appointment with Christos on 01/19. She is unsure if she wants this device and wants to talk further about a CPAP. Consult signed. Bill Woods PA-C General Dentistry does these procedure's. Consult pended - please file if agreeable. Stacia Martins MA Called and spoke with patient who is on Dr. Sher's schedule for BRYAN as a new patient on 01/19/23. Patient is wanting to discuss the use of an Inspire Device for sleep apnea. This device is managed and implanted by a Sleep Surgeon. Dr. Sher is not a surgeon. Please contact patient and assist in re-scheduling with a Sleep Surgeon. Thank you. FRANCHESKA Parham documented in this encounter [facility] 12-15-2022 Miscellaneous Notes Called [facility] , option 1 for Sami. Spoke with Kellee, she indicates Mark is secondary and to call Medicare at [phone] to obtain PA under Medicare Part D plan. Called patient, she states her Medicare Number is [id number]. She states she received a message from [employer] that her Modafinil is approved and ready for pickup. She will call office for any other questions or needs. Maribell Cunha RN Received call from patient. She attempted to pickup refill of Modafinil but the pharmacy indicated it required Prior Authorization. PA marked urgent/expedited submitted via Covermymeds. Elo Gray (Sims: [id number]) Modafinil 200MG tablets Status: Sent To Plan Created: 2022 Sent: 2022 Maribell Cunha RN documented in this encounter [facility] 12-10-2022 Miscellaneous Notes Patient returned call to office. Verified name and . Notified of need for MRI Orbits. She verbalized understanding and is aware a golf course laborer from [place] should be contacting her soon to help coordinate with follow up same day with Bill Woods PA-C in January. Patient is inquiring if she is still correctly scheduled for [facility] visit. She initially had two appointments back to back, one with Fawad Simmons CNP and one with Tali OSBORNE. She states someone from scheduling recently called her to cancel the visit with Tali Hannah CNP because she is not yet age 69. Routing to Fawad Simmons CNP to review and advise. If patient needs second appointment with [facility] rescheduled, she needs it to be on the same day as the visit with Fawad Simmons CNP due to transportation needs. Maribell Cunha RN Called patient, no answer. Message left indicating below and that golf course laborer will be reaching out to help schedule or coordinate MRI with next visit. Phone number to return call to office for any questions provided. Maribell Cunha RN ----- Message from Bill Woods PA-C sent at 12/05/2022 3:58 PM EDT ----- Regarding: FW: Eye Exam Report We are still waiting for OCT to be read officially but Dr. Kinsey suggested getting MRI orbit with next appointment. Can you let her know I placed orders? Next week is fine ----- Message ----- From: Delia Mcgarry Sent: 12/05/2022 3:22 PM EDT To: Bill Woods PA-C Subject: Eye Exam Report Report scanned into [employer]. 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 yes Jennifer Mas RN documented in this encounter [facility] 12-10-2022 History of Present illness Narrative [facility] Pain Management Department Office Visit - Follow Up Evaluation Reason for visit today: pain; discussion re: Percocet Unaccompanied Room: 8 SUBJECTIVE: Patient Entered Questionnaires PROMIS Score Percentiles PROMIS Global Health Scale 07/01/2017 12/02/2022 Physical Health Percentile 1 10 Mental Health Percentile 2 34 Physical Health 12/03/2022 Physical Function Percentile 8 Pain Interference Percentile 16* Percentiles provide an indication of how the patient's score ranks in relation to the general population. Higher percentile rankings indicate better function/quality of life. 50th percentile is the average of the general population and indicates half of respondents had a worse score. > 31st percentile is within normal limits or better * < 31st percentile is at least SD worse than population, which may be clinically relevant < 16th percentile is at least 1 SD worse than population and warrants attention Ms. Gray was last seen on 11/04/22 for the chief complaints of chronic pain including back, knee, and neck pain. The plan from that visit: ASSESSMENT: Elo Gray is a 66 year old pleasant woman with h/o atrial fibrillation (Eliquis), MS, COPD, CHF, and [place] who presents with chronic left knee pain (primarily medial), worse recently since she began to walk and aim to become more active. Continues to smoke approximately a ppd. No recent imaging, so xrays of both knees were ordered. Ms. Gray will discuss Eliquis cessation for procedure with her in file operator to see if OK. If so, d/c 75 hours prior to procedure and restart at least 24 hours afterwards. R/b/a genicular nerve blocks reviewed as well as IA injections. Ms. Gray prefers genicular nerve blocks, so will proceed. Depending upon efficacy and duration of relief (it it helps), will repeat or will try IA injection instead (if OA is evidenced on imaging). Strongly encouraged smoking cessation. Given femoral retroversion, have suggest physiotherapy for gait evaluation, conditioning, strengthening, etc. Per PT expertise. Ms. Gray mentioned opioids for prn use, as she used to take Percocet for chronic pain. I explained that we do not ascribe to COT for chronic back or benign joint pain, as the evidence suggests that it does not provide adequate or useful functional relief, especially long-term. Moreover such treatment lends itself to additional problems in the future. Finally, there is strong evidence that patients who smoke do not respond successfully to pharmacologic or interventional treatments and, in fact, they their pain worsens with time. As she is aiming to exercise more, use the bicycle, walk, and increase her activity level, we can discuss at a future visit the potential for occasional prn use up to 10 tablets per month. Ms. Gray expressed her understanding and satisfaction with the visit. Q/C A/A. (M25.562, G89.29) Chronic pain of left knee (primary encounter diagnosis) (Z87.828) History of torn meniscus of left knee (Z98.890) History of medial meniscus repair of left knee (Q65.89) Congenital retroversion of both femurs (G35) MS (multiple sclerosis) ([facility]) (F17.200) Current smoker (Z79.01) Current use of prison anticoagulation PLAN: - left genicular nerve blocks next available (or knee injection after xrays and discussion) - will stop Eliquis per in file operator - xrays knees bilaterally - PT script after genicular nerve blocks Interval history: MS - reports an MS flare since last visit Knee is doing better today Overall good spirits and doing well Still smoking Loves her physiotherapist Doing specified knee exercises Continues with MS surveillance Denies bladder/bowel incontinence, progressive neurologic deficits, fever/chills, or other concerning red flag symptoms or signs. Functional goals: stand to sit exercises Leg and knee exercises Arm strengthening Has stationary bike at home; rides 10 min a day at least 3 times a week. If we agree to judicious occasional opioids (Percocet), she agrees to aim for daily use of the bicycle rather than only 3 days a week Took pix for her of neck and thoracic spine kyphosis - explained importance and role of core to prevent further degernation Cartogriselda cigs (#214) lasts her 14 days now - she will aim to make them last 16.5 days. This will take her from 15. Cigs per day to 13 cigs per day maximum Based on that, will provide #5 Percocet per month = one script for 15 Percocet to last at least 90 days Pain Management Treatment Pain Medications: Last Percocet - from [facility] #30 08/27/22 and 09/11/22 Had been regular #30 scripts before August (#60 per month in 2 divided scripts, each written as bid) Procedures (%relief, duration): 11/11/22 - left genicular nerve blocks Surgery: S/p ablation on neck x 2 (C7-T1) Fusion C3-6 2016 Lower back sx L4-S1 (discectomy) 1982 Left knee pain (s/p sx x 2; meniscal repair x 2) 4 years ago fell and broke both ankles Smokes 3/4 ppd Active conservative therapy: Aims to ride bicycle every day (stationary) HISTORY FROM THE ELECTRONIC MEDICAL RECORD Allergies ALLERGIES Allergen Reactions Aspirin Other: See Comments Indomethacin Other: See Comments Abilify [Aripiprazo* Other: See Comments Excessive drooling Clindamycin Intolerance Darvocet A500 [Prop* Intolerance Imitrex [Sumatripta* Vomiting BP went down Iodinated Contrast * Other: See Comments Iodine Intolerance Metformin GI Upset Stomach spasms Propoxyphene Other: See Comments Trazodone Intolerance Unable to wake up Current Medications insulin lispro (HUMALOG KWIKPEN INSULIN) 100 unit/mL Use with meals based on PRE meal blood sugar SLIDING SCALE as needed #1 (1 for 50 over 150) ~20 units daily FARXIGA 10 mg tablet Take 1 tablet by mouth every morning. semaglutide (OZEMPIC) 2 mg/dose (8 mg/3 mL) pen injector Inject 2 mg subcutaneously one time a week. ofatumumab (KESIMPTA PEN) 20 mg/0.4 mL injection Inject 1 pen (0.4mL) under the skin once monthly modafinil (PROVIGIL) 200 mg tablet Take 1 tablet by mouth once daily for 30 days. donepezil (ARICEPT) 10 mg tablet Take 2 tablets by mouth once daily. Insulin Scarbro, Disposable, (BD ULTRAFINE III MINI PEN) 31 gauge x 3/16 Uses 4 per day with insulin injection. flash glucose sensor (FREESTYLE JANAY 2 SENSOR) kit Change sensor every 14 days. USE FOR CONTINUOUS GLUCOSE MONITORING. MULTIPLE INSULIN INJECTIONS. E11.9 Alosetron HCl 0.5 mg tablet cyanocobalamin (VITAMIN B-12) 1,000 mcg tab Take 1 tablet by mouth once daily. QUEtiapine (SEROQUEL) 50 mg tablet Take 100 mg by mouth daily at bedtime. ondansetron (ZOFRAN) 4 mg tablet Take 1 tablet by mouth every 8 hours as needed for nausea/vomiting. isosorbide mononitrate ER (IMDUR) 30 mg 24 hr tablet Take 1 tablet by mouth once daily. ferrous sulfate 325 mg (65 mg iron) tablet Take 1 tablet by mouth every 48 hours. carvedilol (COREG) 6.25 mg tablet Take 1 tablet by mouth twice daily with meals for 14 days. rOPINIRole (REQUIP) 1 mg tablet Take 2 mg by mouth daily at bedtime. eluxadoline (VIBERZI) 100 mg tab Take 100 mg by mouth twice daily. HYDROcodone-acetaminophen (NORCO) 5-325 mg per tablet Take 1 tablet by mouth every 8 hours as needed for pain. (Patient not taking: Reported on 11/05/2022) acetaminophen (TYLENOL) 500 mg tablet Take 500 mg by mouth every 6 hours as needed for pain. apixaban (ELIQUIS) 5 mg tab(s) Take 5 mg by mouth once daily. albuterol HFA (PROVENTIL HFA, VENTOLIN HFA) 90 mcg/actuation inhaler Inhale 2 Puffs as instructed every 4 hours as needed for wheezing/shortness of breath. vibegron (GEMTESA) 75 mg tablet Take 75 mg by mouth once daily. nitroglycerin sublingual (NITROQUICK) 0.4 mg SL tablet Dissolve 0.4 mg under the tongue every 5 minutes as needed. [DISCONTINUED] teriflunomide (AUBAGIO) 14 mg TAKE 1 TABLET BY MOUTH ONCE DAILY. pioglitazone (ACTOS) 30 mg tablet Take 30 mg by mouth once daily. pantoprazole DR (PROTONIX) 40 mg tablet Take 40 mg by mouth once daily. ondansetron orally disintegrating (ZOFRAN ODT) 4 mg disintegrating tablet Take 4 mg by mouth every 8 hours as needed for nausea/vomiting. DULoxetine (CYMBALTA) 30 mg capsule Take 30 mg by mouth twice daily. dicyclomine (BENTYL) 20 mg tablet Take 20 mg by mouth twice daily as needed. PROLIA 60 mg/mL once every 6 months. calcium carbonate (CALTRATE) 600 mg calcium (1,500 mg) tab Take 600 mg by mouth once daily. atorvastatin (LIPITOR) 40 mg tablet Take 40 mg by mouth once daily. acidophilus-pectin, citrus 7.5 mg (30 mill cell)-100 mg cap Take 7.5 mg by mouth once daily. ascorbic acid, vitamin C, (VITAMIN C) 500 mg tablet Take 1 tablet by mouth once daily. sucralfate (CARAFATE) 1 gram tablet Take 1 tablet by mouth four times daily. hydrOXYzine HCl (ATARAX) 50 mg tablet Take 1 tablet by mouth three times daily as needed. (Patient taking differently: Take 50 mg by mouth twice daily.) Cholecalciferol, Vitamin D3, 5,000 unit cap Take 1 capsule by mouth once daily. rOPINIRole (REQUIP) 1 mg tablet Take 1 mg by mouth daily with lunch. aspirin, enteric coated (ASPIRIN, ENTERIC COATED) 81 mg EC tablet Take 81 mg by mouth once daily. Past Medical History PAST MEDICAL HISTORY Diagnosis Date Anxiety and depression Anxiety and depression Atrial fibrillation (HCC) Cardiomyopathy (HCC) Cervical myelopathy (HCC) CHF (congestive heart failure) (HCC) Cognitive impairment Colitis COPD (chronic obstructive pulmonary disease) (HCC) Diabetes (HCC) Dyslipidemia GI bleed History of loop recorder Hypertension IBS (irritable bowel syndrome) Multiple sclerosis (HCC) Myocardial infarct, old 03/2016 Obesity Pancreatitis 1978 Renal insufficiency RLS (restless legs syndrome) Tobacco dependence Urinary incontinence Past Surgical History PAST SURGICAL HISTORY Procedure Laterality Date BACK SURGERY HX lower x3 CARPAL TUNNEL lt and rt COLONOSCOPY FLX DX W/COLLJ SPEC WHEN PFRMD 10/12/2014 Colonoscopy inpt [facility] COLONOSCOPY FLX DX W/COLLJ SPEC WHEN PFRMD 02/28/2015 Colonoscopy FINGER SURGERY HX thumb reconstructed KNEE SURGERY HX lt x2 PAST SURGICAL HISTORY OF partial amputation of big toe PAST SURGICAL HISTORY OF Left 01/25/2015 great toe removal PAST SURGICAL HISTORY OF Bilateral 08/2022 C3 and C6 nerve ablasions TONSILLECTOMY HX TUBAL LIGATION HX Social History Alcohol Use: No (once in a blue sadler) Tobacco Use: .5 packs/day, for 30 years. Types: Cigarettes Drug Use: No (no h/o illicit drugs) Edentulous b/c dental caries (didn't brush) Family History FAMILY HISTORY Problem Relation Age of Onset Cancer Father lung Cancer Mother pancreatic Multiple Sclerosis No Family History OBJECTIVE BP 161/77 (BP Site: Right Arm, BP Position: Sitting, BP Cuff Size: Regular Adult) Pulse (!) 56 Temp 36.8 C (98.2 F) (Temporal) Ht 157.5 cm (5' 2) Wt 70.3 kg (155 lb) LMP 02/22/2000 (Approximate) SpO2 95% BMI 28.35 kg/m General: well appearing, alert, and in no acute distress Psych: affect and mood appropriate Skin: skin turgor normal HEENT: normocephalic, atraumatic; edentulous Pulmonary: Unlabored breathing on room air. Symmetric chest expansion Back: thoracic kyphosis Neuro: AAOx3. Grossly intact Gait: Normal New or Pertinent Data: 11/04/2022 3:10 PM - Radiology, [place] In Impression IMPRESSION: Degenerative changes greater in the lateral compartment of the left knee. Painter Tumbling Barrel: STEPHANIE Transcribe Date/Time: Nov 04 2022 3:05P Dictated by : CJ BOO MD This examination was interpreted and the report reviewed and electronically signed by: CJ BOO MD on Nov 04 2022 3:07PM EST Results-Findings * * *Final Report* * * DATE OF EXAM: Nov 04 2022 2:57PM YOSEPH [id number] - XR KNEE 4V AP/PA/LAT/MERCH INDIA / PROCEDURE REASON: multiple diagnoses * * * * Physician Interpretation * * * * HISTORY: . Chronic pain of left knee Chronic pain of left knee History of torn meniscus of left knee History of medial meniscus repair of left knee. TECHNIQUE: XR KNEE 4V AP/PA/LAT/MERCH INDIA Laterality: Number of different views (projections): 5 COMPARISON: None RESULT: No gross effusion. Bilateral knee chondrocalcinosis. Bilateral degenerative changes with greater narrowing in the lateral compartment of the left knee. No other significant findings. ASSESSMENT Elo Gray is a 66 year old woman with h/o MS, CTS, CHF, smoking (current), diabetes, paroxysmal atrial fibrillation (Eliquis), RLS, IBS, GIB, lumbar decompression, and cervical fusion who presents with persistent back, knee, and neck pain. Reviewed imaging with Ms. Gray. Strongly encouraged tobacco cessation. Ms. Gray is using her stationary bicycle a couple of times a week. She reports that low-dose and occasional Percocet helps immensely with her pain and allows her to maintain function and QOL. We discussed goals if she is to receive Percocet (prn only) for pain. Ms. Gray agrees to more regular exercise including daily stationary bike use and to cut down on cigarette smoking with eventual cessation. She will continue to f/u for her MS and to continue with other appointments. She is excited to get dentures in February and hearing aids this Thursday. she's getting new glasses. Neurology f/u in January. Many questions addressed and answered to her satisfaction. (G89.29) Other chronic pain (primary encounter diagnosis) (G35) MS (multiple sclerosis) ([facility]) (I48.0) Paroxysmal A-fib (HCC) (F17.200) Tobacco dependence (Z68.28) BMI 28.0-28.9,adult (Z98.890) Personal history of spine surgery (Z86.39) H/O insulin dependent diabetes mellitus PLAN : Agreed to 5 Perc per month (15 for 90 days) Earlier use will -> breach of agreement and no more opioids Script for Percocet #15 sent to pharmacy. Copy printed and given to patient. R/b/a re: opioids reviewed carefully. Ms. Gray articulated understanding and agreement. #15 must last at least 90 days. RTC prn with KK. FTFT: [id number] I counseled the patient on the importance of health promotion and lifestyle modifications including tobacco cessation and healthy eating with optimized glucose control. Daily exercise in moderation encouraged. Medications may cause sedation and impairment of judgment. The patient is advised against driving or using heavy machinery when taking Percocet. The patient is also advised against using alcohol or other substances that may have a further additive effect. Shared decision making utilized to continue current treatment plan and patient's questions were answered. The above plan and management options were discussed with patient. The patient is in agreement with the above and verbalized understanding. Heather Davis MD 1. This office note may have been dictated. It also may contain minor typographic errors that escaped review 2. The nursing staff and advanced practice providers are a major part of YOUR TREATMENT TEAM and will be handling your phone calls and electronic inquiries, if any. Unless explicitly told otherwise at the time of your office visit, your study results and ensuing treatment plans will be discussed during your follow-up appointment. 3. If you do not have a follow-up appointment and wish to discuss any issues directly with me, please feel free to obtain one. Time allotted for procedure appointments will not allow for these follow-up discussions and the preoperative visit will not allow sufficient time for thorough discussion. 4. It is our practice not to fill disability, FCE, or any other insurance-related forms/documention. The office notes, study results, and other pertinent documentation generated as part of your evaluation will be available to you and to your Primary Care Physician (PCP). Use of this material to complete such forms will be at the discretion of your PCP/referring physician. documented in this encounter [facility] 12-04-2022 History of Present illness Narrative Faxed over orders as directed to [facility] at fax #[phone]. The . documented in this encounter [facility] 12-03-2022 History of Present illness Narrative Images from the original note were not included. [facility] FOR MULTIPLE SCLEROSIS FOLLOWUP/ESTABLISHED PATIENT VISIT PRINCIPAL NEUROLOGIC DIAGNOSIS: Multiple sclerosis DISEASE SUMMARY Date of onset: 12/1998 Date of diagnosis of MS: 1998 Disease course at onset: Progressive with relapses Current disease course: Progressive with relapses Previous disease therapies: Glatiramer acetate 2002, [id number], [id number] Fingolimod 07/2014-04/2016 (switched because of heart issues - had heart attack) Teriflunomide 7 mg 04/2016-10/2016 Prednisone x 10 days 03/2017 IVMP 01/25/17 x 1 dose Teriflunomide 14 mg daily Current disease therapy: Kesimpta (started 01/2022) Most recent MRI brain: 08/22/22 Most recent MRI cervical spine: 08/22/22 Most recent MRI thoracic spine: 08/22/22 CSF: 1998 JCV serology result and date: NA CHIEF COMPLAINT: Follow-up on MS disease modifying therapy INTERVAL HISTORY: Usual treating team: Pako/Carlos The patient is accompanied by self. The patient was last seen 11/21/22, currently taking Kesimpta . Since the patient's last visit the patient reports overall feeling improved. Symptoms improving since she was here last - attributes to heat wave (--headache, cervicalgia, vision changes, drooling, word finding difficulty.) - seen by [place] urgent visit 11/21. Rx Medrol dose janee - tolerance was poor (had diarrhea since taking) Went to ED on 11/24/22 due to facial weakness and tongue swelling - CT scan reportedly negative and labs completed Evaluated by ophthalmology 11/28/22 - visual field testing completed No swelling, hemorrhage or pallor of either optic nerve noted today. No obvious defect from MS on formal visual field testing, no homonymous defect noted on visual field testing, although explained this does not definitively rule out a stroke. Unclear etiology of 'blobs' in vision. Recommend continue to follow with neurologist Dr. Kinsey at [facility]. Getting hearing aids next week Also getting new glasses Seeing Heather Davsi MD for pain management Sleep apnea - issues with Bipap. Can't wear the nasal pillow she has Lift added to porch. Working with MS society for modifications to bathroom and cooling products SUBJECTIVE & REVIEW OF SYSTEMS: Neuro-QoL Functions (higher=better functioning) Flowsheet Row Office Visit from 09/03/2022 in Neurology Office Visit from 11/14/2021 in [facility] Upper Extremity Domain T Score 43 33.84 Lower Extremity Domain T Score 39 38.83 Cognitive Function Domain T Score 40 39.53 Positive Affect Well Being T Score -- -- Ability To Participate In Social Roles T Score 42 42.88 Satisfaction With Social Roles T Score 46 42.46 Neuro-QoL Symptoms (higher=worse symptoms) Flowsheet Row Office Visit from 09/03/2022 in Neurology Office Visit from 11/14/2021 in [facility] Sleep Domain T Score 63 63.25 Fatigue Domain T Score 60 56.18 Anxiety Domain T Score 50 54.39 Depression Domain T Score 46 52.59 Stigma Domain T Score 63 59.93 Emotional Behavior Dyscontrol T Score -- -- *NeuroQoL is a multi-domain patient-reported quality of life questionnaire. PHQ-9 Flowsheet [facility] Office Visit from 07/01/2017 in [facility] PHQ-9 Score 22 *PHQ-9 is a questionnaire for depressive symptoms, with scores 0-4 indicating none, 5-9 mild, 10-14 moderate, 15-19 moderately severe, and 20-27 severe symptoms. PROMIS-10 Flowsheet Row Office Visit from 12/03/2022 in Neurology Office Visit from 07/01/2017 in [facility] Global Physical Health T Score 37.4 26.7 Global Mental Health T Score 45.8 28.4 0-10 Standard Pain Scale 3 2 *PROMIS-10 is a patient-reported quality of life measure, typically reported as physical and mental domains. Here scores are expressed as percentiles, where the lowest possible score is one, the highest possible score is 99, and 50 is average. Refer to patient-entered data. Mood: PHQ9 responses reviewed and appear below Pain related to today's visit:reviewed on nursing intake documentation Sleep: See HPI PAST HISTORY was reviewed and updated: PAST MEDICAL HISTORY Diagnosis Date Anxiety and depression Anxiety and depression Atrial fibrillation (HCC) Cardiomyopathy (HCC) Cervical myelopathy (HCC) CHF (congestive heart failure) (HCC) Cognitive impairment Colitis COPD (chronic obstructive pulmonary disease) (HCC) Diabetes (HCC) Dyslipidemia GI bleed History of loop recorder Hypertension IBS (irritable bowel syndrome) Multiple sclerosis (HCC) Myocardial infarct, old 03/2016 Obesity Pancreatitis 1978 Renal insufficiency RLS (restless legs syndrome) Tobacco dependence Urinary incontinence PAST SURGICAL HISTORY Procedure Laterality Date BACK SURGERY HX lower x3 CARPAL TUNNEL lt and rt COLONOSCOPY FLX DX W/COLLJ SPEC WHEN PFRMD 10/12/2014 Colonoscopy inpt [facility] COLONOSCOPY FLX DX W/COLLJ SPEC WHEN PFRMD 02/28/2015 Colonoscopy FINGER SURGERY HX thumb reconstructed KNEE SURGERY HX lt x2 PAST SURGICAL HISTORY OF partial amputation of big toe PAST SURGICAL HISTORY OF Left 01/25/2015 great toe removal PAST SURGICAL HISTORY OF Bilateral 08/2022 C3 and C6 nerve ablasions TONSILLECTOMY HX TUBAL LIGATION HX MEDICATIONS and ALLERGIES were reviewed and updated. SOCIAL HISTORY was reviewed and updated: Social History Tobacco Use Smoking status: Every Day Packs/day: 0.50 Years: 30.00 Total pack years: 15 Types: Cigarettes Start date: 01/04/1973 Smokeless tobacco: Never Tobacco comments: Less than 10 Living situation: Living at home without assistance Employment Status / Disability: Disabled, permanently or temporarily OBJECTIVE: VITALS & WELLNESS: BP 122/60 Pulse (!) 52 LMP 02/22/2000 (Approximate) MSPT Performance Tests 11/14/2021 07/01/2017 Processing Speed Total Number Correct 31 - Dominant hand - Right hand MDT Left Hand Time - 56.04 MDT Right Hand Time - 42.93 Walking Speed Test (25 feet) - 43.25 EXAM: General Appearance: slightly disheveled. Facial hair. Absent dentition Mental status evaluation during the interview and examination showed normal level of consciousness, orientation, language, memory, praxis, and higher intellectual function Affect: Normal Extraocular movements: full, without SAMINA Facial sensation: Intact bilaterally Speech: normal Muscle strength (#/5): Right Left Upper Extremity: Deltoids 5 5 Biceps 5 5 Triceps 5 5 Safety Specialist 5 5 Lower extremity: Iliopsoas 4+ 4 Quadriceps 5 5 Hamstrings 5 5 Tibialis anterior 5 5 Gastrocnemius 5 5 Coordination: Upper extremity dexterity and rapid movements: decreased left Finger-nose: no dysmetria; coordination intact Standing balance: Impaired Standard gait: unsteady, wide-based. Assistive device: rollator Results: Lab Results Component Value Date JCV Antibody Positive (A) 02/27/2021 JCV Index Value 3.46 (H) 02/27/2021 Discrete MRI Results Component Value Date Brain New T2 Lesions None 08/22/2022 Brain New T2 Lesions None 08/22/2022 Brain Enhancing Lesions None 08/22/2022 Brain Enhancing Lesions None 08/22/2022 Cervical Spine New T2 Lesions None 08/22/2022 Cervical Spine New T2 Lesions None 08/22/2022 Cervical spine enhancing lesions None 08/22/2022 Cervical spine enhancing lesions None 08/22/2022 ASSESSMENT/PLAN: Elo Gray is a 66 year old female with Multiple Sclerosis. Patient is on Kesimpta for DMT. Reports good compliance. Presents for follow-up after ED visit. Completed Medrol dose janee with side effects of diarrhea. Reports improvement in symptoms since 11/21/22. Reviewed ophthalmology records and they will continue to monitor vision. Discussed speech therapy for speech concerns (dysarthria) and brain fog. [facility] in [place] (phone: [phone]) - PT receiving homecare through them currently and will send speech therapy orders. She [facility] also [facility] for further evaluation. Encouraged continued follow-up with specialists (endocrinology, cardiology, spine, pain management) and PCP. Will refer to sleep medicine for sleep apnea/biPAP assistance. Exam is:Stable, continue with current IMDT. The prescribed disease modifying therapy for MS is having the expected benefit in this patient based on imaging and clinical criteria, and will be continued or refilled, with planned follow-up at approximately 6-month intervals to continue to assess response on an ongoing basis. Patient Health Education Discussed at Visit: Emotional Health/Wellness and Risks and Common side effects of MS medications Follow-up: In 2 months at [facility], or Virtual Visit with [facility] I spent a total of 30 minutes on the date of the service which included preparing to see the patient, [id number] patient care, completing clinical documentation, obtaining and/or reviewing separately obtained history, performing a medically appropriate examination, counseling and educating the patient/family/caregiver, ordering medications, tests, or procedures, independently interpreting results (not separately reported), and communicating results to the patient/family/caregiver. Bill Woods PA-C The chart was reviewed for possible participation in the following studies:None documented in this encounter [facility] 11-24-2022 Miscellaneous Notes Called patient to obtain update, verified name and . Patient states she arrived to ER around 9:50 am. She indicates she has had CT Head, Lab, Urine, and stool testing. She is waiting for results and plan of care at this time. Will plan to contact patient tomorrow morning for update on condition. Maribell Cunha RN Encounter reviewed; agree with plan. Lisa Morataya APRN.[place] Patient called office, verified name and . Patient states over the weekend her left eye seems to be swollen, and she cannot hold her left eye open without thinking about it. She is able to open the eye and can keep it open when she is thinking about it. Patient states the vision in her left eye is more blurry and she continues to have excessive tearing. Patient states the increased drooling has improved back to baseline level. She states both eye brows raise equally in the mirror. She states her smile appears even and her tongue comes out the middle although she indicates it seems the right side of her tongue is physically larger than the left side of her tongue. Speech remains slightly slurred but is comprehensible. Patient denies headache or one sided body weakness. Patient states she lives with her son, but he is only there with her at night. He is not at home right now. She indicates her home PARTS DRIVER Aubree Laura is coming to see her today at 10:15 am. His contact information is . Patient reports also she has been having diarrhea since starting medrol dose pack on Thursday. She has had three episodes of diarrhea this morning so far. She states she has IBS and has been taking Bentyl, imodium, and Viberzi. She states she is trying to stay hydrated and when she eats it immediately comes out. Spoke with Lisa Morataya CNP, provider patient saw on 11-21. She recommends patient contact eye doctor for sooner appointment and to reiterate stroke symptoms to patient and when to seek emergency care. Called Aubree Laura PARTS DRIVER scheduled to see patient this morning at 10:15, notified of patient's call this morning with symptoms. He states he also just spoke with patient who indicated she is having drooping at her mouth. Called patient back, she states since we spoke that her right side of her mouth seems to be drooping when looking in the mirror. She indicates she is also having tingling on the left side of her face now. Advised patient call 911, she verbalized understanding. Routing with high priority to Lisa Morataya CNP, covering JANICE, and Bill Woods PA-C to notify. Maribell Cunha RN documented in this encounter [facility] 11-24-2022 History of Present illness Narrative [facility] Refill Assessment Medication(s): Kesimpta Patient's current medication list and adherence status to current therapy were reviewed by Specialty Pharmacy clinical pharmacist to identify any new drug interactions or non-compliance to therapy. Therapy continues to be appropriate for disease, patient response, and medical condition. Verification of therapeutic benefit and effectiveness with current therapy was completed. Adverse events, barriers in adherence, and side effects were assessed and addressed if applicable. Will proceed with refill with no changes in therapy - patient progressing towards achieving therapeutic goals based on medication-specific laboratory parameters, disease state markers and outcomes. Payroll Services Analyst Assessment Patient confirmed: Yes Med/dose confirmed: Yes Supplies needed: No supplies needed Missed doses: No Estimated days supply on hand: 0 Next cycle/dose due: 12/01/22 Copay amount: 0 Delivery method: FedEx Signature required: No Delivery address: [address] [place] [address] Delivery date: 11/28/22 Questions or concerns for the pharmacist?: No [facility] Specialty Pharmacy Visit Assessment - Neurology: Assessment to use: Refill Vaccination Assessment: Date of influenza vaccination reminder: 06/23/2022 Date of most recent vaccination assessment: 06/23/2022 Valerie Hendricks CPhT [facility], Neurology, Cardiology, & Infectious Disease P: [phone] F: [phone] documented in this encounter [facility] 11-21-2022 Miscellaneous Notes Referral placed to [facility] for Cooling Vest per request from Lisa Morataya CNP who had visit with patient today. Maribell Cunha RN documented in this encounter [facility] 11-21-2022 History of Present illness Narrative [facility] OCT OU At best attempt. Per Pt she is having an MS flair up. Can not sit still. Performed by Teri Rojas MA on November 21, 2022 11:03 AM documented in this encounter [facility] 11-20-2022 Miscellaneous Notes Patient returned call to office. She states on Thursday she noticed she wasn't feeling well. She developed pain in joints of bilateral shoulders, felt a little off balance, had runny nose, and felt like it was hard to focus her vision moving from light room to dark room. She called her [facility] at [facility] ([phone]) and they indicated they thought it was her MS. She continued to monitor through today and noticed onset of orange spots in bilateral eyes in random places. She denies loss of vision, eye pain, dulling/color change to vision, double vision. She reports she is still having trouble focusing her vision especially when going from light room to dark room. Both eyes are also tearing excessively. Patient states she feels she is having difficulty putting words together and she has been drooling excessively. These are not new symptoms but are worse than usual. She looked in a mirror during call and denies facial drooping, states her tongue comes out the middle when she sticks it out. Speech sounds slightly slurred but is comprehensible. Patient states she is scheduled to see eye doctor next week. She is also scheduled for urgent visit tomorrow morning with Lisa Morataya CNP. Denies fever, reports BP has been stable, and denies any swelling in her ankles. Paged Bill Woods PA-C, she indicates vision changes do not sound MS in nature and recommends patient call her eye doctor due to worsening changes since initial call on Thursday. Called patient, she contacted her eye doctor and reviewed progressing symptoms. They indicated still ok to keep appointment as scheduled with them next week. She will keep appointment with Lisa Morataya CNP tomorrow. She will seek emergency care should s/s stroke or significant vision changes occur between now and tomorrow. Maribell Cunha RN Called patient, no answer. Message left to return call to office when able. Of note, patient is now scheduled for visit tomorrow, 11-21-22 with Lisa Morataya CNP. Maribell Cunha RN Ramin Call Name of caller : Elo Relationship to patient: Self Return call phone number : [phone] Reason for call : Other : Brief description of concern : Having flare up .... Speech is slurred at times, it is affecting her walking, eyes are not working right at times. [facility]. documented in this encounter [facility] 11-04-2022 Nurse Note Patient accompanied by: self What do/did you do for work? 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 yes documented in this encounter [facility] 11-04-2022 History of Present illness Narrative [facility] Pain Management Department Office Visit Elo Marina is Unique Woods PA-C. Unaccompanied Room: 21 Chief Complaint: chronic pain, back pain, knee pain, neck pain HISTORY OF PRESENT ILLNESS Elo Gray presents to [facility] for the evaluation of knee pain. S/p ablation on neck x 2 (C7-T1) Fusion C3-6 2016 Lower back sx L4-S1 (discectomy) 1983 Left knee pain (s/p sx x 2; meniscal repair x 2) Onset: 4 years ago - fell and broke both ankles Precipitating event: fell and broke both ankles s/p knee gave out Location: medial anterior left knee (knee crunches) Radiation: no Quality: aching, burning, crunching (doesn't hurt); hurts at night; pillow under knees at night - helps a lot Progression: worsening Severity: 6 on a scale of 0-10. Frequency: waxes and wanes; sometimes no pain Alleviating factors: Salonpas; sometimes a pain pill, Tylenol; ice; pillow under knee Exacerbating factors: walking; vacuuming, standing in front of sink doing dishes Symptoms interfere with: standing, walking, doing chores. Just started walking a lot (/april was very sedentary) - started going to [employer]; lift next to her porch (can avoid porch stairs and can go outside) and started to walk - hurts her when she walks a lot Upright bicycle at home - bothers her knee Patient goal(s) for visit: gel implants - establish herself with me and start a discussion about various pain problems and get suggestions for improvement 2016 - 28 years Has MS - pretty well-controlled Remitting and relapsing IM Kesimpta q month Denies bladder/bowel incontinence, progressive neurologic deficits, fever/chills, or other concerning red flag symptoms or signs. Review of Systems:The remainder of the ROS was negative. 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) Single mom for a long time Smokes - 3/4 ppd At most smoked > 2 ppd Started smoking 17 yo Previous/Current Treatment Pain medications (efficacy, side effects): Can't take NSAIDs - ulcer Procedures: None for knees Surgeries: Meniscal repair x 2 in the past (1994; 1996) Active conservative therapy: PT - really likes her therapist Has had ultrasound for knees Passive conservative therapy: TENS unit - didn't help Current anticoagulation: Eliquis (knows to stop x 3 days for procedures); in file operator is aware and has told her it's OK (per patient report) OARRS: PDMP website checked and validated and is consistent with medication report. HISTORY FROM THE ELECTRONIC MEDICAL RECORD Allergies ALLERGIES Allergen Reactions Aspirin Other: See Comments Indomethacin Other: See Comments Abilify [Aripiprazo* Other: See Comments Excessive drooling Clindamycin Intolerance Darvocet A500 [Prop* Intolerance Imitrex [Sumatripta* Vomiting BP went down Iodinated Contrast * Other: See Comments Iodine Intolerance Metformin GI Upset Stomach spasms Propoxyphene Other: See Comments Trazodone Intolerance Unable to wake up Current Medications ofatumumab (KESIMPTA PEN) 20 mg/0.4 mL injection Inject 1 pen (0.4mL) under the skin once monthly modafinil (PROVIGIL) 200 mg tablet Take 1 tablet by mouth once daily for 30 days. donepezil (ARICEPT) 10 mg tablet Take 2 tablets by mouth once daily. OZEMPIC 0.25 mg or 0.5 mg (2 mg/3 mL) pen Inject 0.5 mg once weekly Insulin Scarbro, Disposable, (BD ULTRAFINE III MINI PEN) 31 gauge x 3/16 Uses 4 per day with insulin injection. insulin lispro (HUMALOG KWIKPEN INSULIN) 100 unit/mL Use with meals based on PRE meal blood sugar SLIDING SCALE as needed #1 (1 unit for every 50 over 150) TDD 20 units flash glucose sensor (FREESTYLE JANAY 2 SENSOR) kit Change sensor every 14 days. USE FOR CONTINUOUS GLUCOSE MONITORING. MULTIPLE INSULIN INJECTIONS. E11.9 Alosetron HCl 0.5 mg tablet cyanocobalamin (VITAMIN B-12) 1,000 mcg tab Take 1 tablet by mouth once daily. QUEtiapine (SEROQUEL) 50 mg tablet TAKE 1 TABLET BY MOUTH AT BEDTIME for mood FARXIGA 10 mg tablet Take 10 mg by mouth every morning. ondansetron (ZOFRAN) 4 mg tablet Take 1 tablet by mouth every 8 hours as needed for nausea/vomiting. isosorbide mononitrate ER (IMDUR) 30 mg 24 hr tablet Take 1 tablet by mouth once daily. ferrous sulfate 325 mg (65 mg iron) tablet Take 1 tablet by mouth every 48 hours. carvedilol (COREG) 6.25 mg tablet Take 1 tablet by mouth twice daily with meals for 14 days. rOPINIRole (REQUIP) 1 mg tablet Take 2 mg by mouth daily at bedtime. eluxadoline (VIBERZI) 100 mg tab Take 100 mg by mouth twice daily. HYDROcodone-acetaminophen (NORCO) 5-325 mg per tablet Take 1 tablet by mouth every 8 hours as needed for pain. acetaminophen (TYLENOL) 500 mg tablet Take 500 mg by mouth every 6 hours as needed for pain. apixaban (ELIQUIS) 5 mg tab(s) Take 5 mg by mouth once daily. albuterol HFA (PROVENTIL HFA, VENTOLIN HFA) 90 mcg/actuation inhaler Inhale 2 Puffs as instructed every 4 hours as needed for wheezing/shortness of breath. vibegron (GEMTESA) 75 mg tablet Take 75 mg by mouth once daily. nitroglycerin sublingual (NITROQUICK) 0.4 mg SL tablet Dissolve 0.4 mg under the tongue every 5 minutes as needed. [DISCONTINUED] teriflunomide (AUBAGIO) 14 mg TAKE 1 TABLET BY MOUTH ONCE DAILY. pioglitazone (ACTOS) 30 mg tablet Take 30 mg by mouth once daily. pantoprazole DR (PROTONIX) 40 mg tablet Take 40 mg by mouth once daily. ondansetron orally disintegrating (ZOFRAN ODT) 4 mg disintegrating tablet Take 4 mg by mouth every 8 hours as needed for nausea/vomiting. DULoxetine (CYMBALTA) 30 mg capsule Take 30 mg by mouth twice daily. dicyclomine (BENTYL) 20 mg tablet Take 20 mg by mouth twice daily as needed. PROLIA 60 mg/mL once every 6 months. calcium carbonate (CALTRATE) 600 mg calcium (1,500 mg) tab Take 600 mg by mouth once daily. atorvastatin (LIPITOR) 40 mg tablet Take 40 mg by mouth once daily. acidophilus-pectin, citrus 7.5 mg (30 mill cell)-100 mg cap Take 7.5 mg by mouth once daily. ascorbic acid, vitamin C, (VITAMIN C) 500 mg tablet Take 1 tablet by mouth once daily. sucralfate (CARAFATE) 1 gram tablet Take 1 tablet by mouth four times daily. hydrOXYzine HCl (ATARAX) 50 mg tablet Take 1 tablet by mouth three times daily as needed. (Patient taking differently: Take 50 mg by mouth four times daily.) Cholecalciferol, Vitamin D3, 5,000 unit cap Take 1 capsule by mouth once daily. rOPINIRole (REQUIP) 1 mg tablet Take 1 mg by mouth daily with lunch. aspirin, enteric coated (ASPIRIN, ENTERIC COATED) 81 mg EC tablet Take 81 mg by mouth once daily. Past Medical History PAST MEDICAL HISTORY Diagnosis Date Anxiety and depression Anxiety and depression Atrial fibrillation (HCC) Cardiomyopathy (HCC) Cervical myelopathy (HCC) CHF (congestive heart failure) (HCC) Cognitive impairment Colitis COPD (chronic obstructive pulmonary disease) (HCC) Diabetes (HCC) Dyslipidemia GI bleed History of loop recorder Hypertension IBS (irritable bowel syndrome) Multiple sclerosis (HCC) Myocardial infarct, old 03/2016 Obesity Pancreatitis 1978 Renal insufficiency RLS (restless legs syndrome) Tobacco dependence Urinary incontinence Past Surgical History PAST SURGICAL HISTORY Procedure Laterality Date BACK SURGERY HX lower x3 CARPAL TUNNEL lt and rt COLONOSCOPY FLX DX W/COLLJ SPEC WHEN PFRMD 10/12/14 Colonoscopy inpt [facility] COLONOSCOPY FLX DX W/COLLJ SPEC WHEN PFRMD 02/28/15 Colonoscopy FINGER SURGERY HX thumb reconstructed KNEE SURGERY HX lt x2 PAST SURGICAL HISTORY OF partial amputation of big toe PAST SURGICAL HISTORY OF Left 01/25/2015 great toe removal TONSILLECTOMY HX TUBAL LIGATION HX Social History Alcohol Use: No Tobacco Use: .75 packs/day, for 30 years. Types: Cigarettes Drug Use: No Family History FAMILY HISTORY Problem Relation Age of Onset Cancer Father lung Cancer Mother pancreatic Multiple Sclerosis No Family History OBJECTIVE BP 106/58 Pulse 63 Temp 36.3 C (97.3 F) (Temporal Artery) Resp 16 Ht 157.5 cm (5' 2) Wt 70.3 kg (155 lb) LMP 02/22/2000 (Approximate) SpO2 97% BMI 28.35 kg/m General: well appearing, alert, and in no acute distress Psych: affect and mood appropriate Skin: skin turgor normal HEENT: normocephalic, atraumatic Pulmonary: Unlabored breathing on room air. Symmetric chest expansion Left knee: No warmth, redness, edema noted Small ecchymosis medial knee s/p fall No pain with palpation No allodynia Well-healed trochar scar (scope) medial left kneep Neuro: AAOx3. Grossly intact Gait: mildly antalgic to both sides; extreme femoral retroversion New or Pertinent Data: Imaging: None of knees Labs: BMP Latest Ref Rng & Units 07/25/2022 12/16/2021 11/15/2021 GLUCOSE 74 - 99 mg/dL 216(H) 141(H) 270(H) BUN 7 - 21 mg/dL 19 17 27(H) CREATININE 0.58 - 0.96 mg/dL 0.75 0.64 0.84 SODIUM 136 - 144 mmol/L 135(L) 139 134(L) POTASSIUM 3.7 - 5.1 mmol/L 4.0 3.8 4.5 CHLORIDE 97 - 105 mmol/L 101 106 106 CO2 22 - 30 mmol/L 24 27 23 ANION GAP 9 - 18 mmol/L 10 6 5 CALCIUM, TOTAL 8.5 - 10.2 mg/dL 9.9 9.7 10.3 eGFR >=60 mL/min/1.73m 87 97 77 EGFR- - - - - EGFR-ALL OTHER RACES . - - - CBC Latest Ref Rng & Units 11/15/2021 12/16/2021 07/25/2022 WBC 3.70 - 11.00 k/uL 12.53(H) 4.66 6.37 RBC 3.90 - 5.20 m/uL 3.97 3.58(L) 4.42 HGB 11.7 - 14.7 g/dL - - - HEMOGLOBIN 11.5 - 15.5 g/dL 10.9(L) 10.0(L) 13.9 HEMOGLOBIN TOTAL, WHOLE BLOOD 11.5 - 15.5 g/dL - - - HEMATOCRIT 36.0 - 46.0 % 34.6(L) 32.6(L) 43.0 MCV 80.0 - 100.0 fL 87.2 91.1 97.3 MCH 26.0 - 34.0 pg 27.5 27.9 31.4 MCHC 30.5 - 36.0 g/dL 31.5 30.7 32.3 RDW 11.8 - 14.5 % - - - RDW-CV 11.5 - 15.0 % 19.6(H) 17.2(H) 13.2 PLATELETS 150 - 400 k/uL 268 196 247 MPV 9.0 - 12.7 fL 9.6 10.4 9.9 BASO% % 0.7 - 1.3 ABS NEUT (ANC) 1.45 - 7.50 k/uL 10.85(H) - 4.15 ABS LYMPH 1.00 - 4.00 k/uL 1.05 - 1.41 ABS MONO <0.87 k/uL 0.42 - 0.50 ABS EOSIN <0.46 k/uL 0.08 - 0.22 ABS BASO <0.11 k/uL 0.09 - 0.08 NRBC /100 WBC 0.0 - 0.0 DIFF TYPE - - - - ASSESSMENT: Elo Gray is a 66 year old pleasant woman with h/o atrial fibrillation (Eliquis), MS, COPD, CHF, and [place] who presents with chronic left knee pain (primarily medial), worse recently since she began to walk and aim to become more active. Continues to smoke approximately a ppd. No recent imaging, so xrays of both knees were ordered. Ms. Gray will discuss Eliquis cessation for procedure with her in file operator to see if OK. If so, d/c 75 hours prior to procedure and restart at least 24 hours afterwards. R/b/a genicular nerve blocks reviewed as well as IA injections. Ms. Gray prefers genicular nerve blocks, so will proceed. Depending upon efficacy and duration of relief (it it helps), will repeat or will try IA injection instead (if OA is evidenced on imaging). Strongly encouraged smoking cessation. Given femoral retroversion, have suggest physiotherapy for gait evaluation, conditioning, strengthening, etc. Per PT expertise. Ms. Gray mentioned opioids for prn use, as she used to take Percocet for chronic pain. I explained that we do not ascribe to COT for chronic back or benign joint pain, as the evidence suggests that it does not provide adequate or useful functional relief, especially long-term. Moreover such treatment lends itself to additional problems in the future. Finally, there is strong evidence that patients who smoke do not respond successfully to pharmacologic or interventional treatments and, in fact, they their pain worsens with time. As she is aiming to exercise more, use the bicycle, walk, and increase her activity level, we can discuss at a future visit the potential for occasional prn use up to 10 tablets per month. Ms. Gray expressed her understanding and satisfaction with the visit. Q/C A/A. (M25.562, G89.29) Chronic pain of left knee (primary encounter diagnosis) (Z87.828) History of torn meniscus of left knee (Z98.890) History of medial meniscus repair of left knee (Q65.89) Congenital retroversion of both femurs (G35) MS (multiple sclerosis) (HCC) (F17.200) Current smoker (Z79.01) Current use of prison anticoagulation PLAN: - left genicular nerve blocks next available (or knee injection after xrays and discussion) - will stop Eliquis per in file operator - xrays knees bilaterally - PT script after genicular nerve blocks I counseled the patient on the importance of health promotion and lifestyle modifications including general health improvement, healthy eating, smoking cessation, and gentle exercise as tolerated. Shared decision making utilized to continue current treatment plan and patient's questions were answered. The above plan and management options were discussed with patient. The patient is in agreement with the above and verbalized understanding. Heather Davis MD Medical Decision Making: Problems: Moderate: 2+ stable chronic illnesses Risk: Moderate: Decision on minor surgery w/ risk factors Medical Decision Making Level: 4 - Moderate 1. This office note may have been dictated. As such, or if not, it may contain minor typographic errors that escaped review 2. The nursing staff and advanced practice providers are a major part of YOUR TREATMENT TEAM and will be handling your phone calls and electronic inquiries, if any. Unless explicitly told otherwise at the time of your office visit, your study results and ensuing treatment plans will be discussed during your follow-up appointment. 3. If you do not have a follow-up appointment and wish to discuss any issues directly with me, please feel free to obtain an appointment for follow-up visit in the office. Time allotted for procedure appointments will not allow for these follow-up discussions and the preoperative visit will not allow sufficient time for thorough discussion. 4. It is our practice not to fill disability, FCE, or any other insurance-related forms/documention. The office notes, study results, and other pertinent documentation generated as part of your evaluation will be available to you and to your Primary Care Physician (PCP). Use of this material to complete such forms will be at the discretion of your PCP/referring physician. documented in this encounter [facility] 10-13-2022 Miscellaneous Notes Sent to scanning lab and UA from [facility]. Radha Morillo MA documented in this encounter [facility] 09-03-2022 History of Present illness Narrative Images from the original note were not included. [facility] FOR MULTIPLE SCLEROSIS FOLLOWUP/ESTABLISHED PATIENT VISIT PRINCIPAL NEUROLOGIC DIAGNOSIS: Multiple sclerosis DISEASE SUMMARY Date of onset: 12/1998 Date of diagnosis of MS: 1998 Disease course at onset: Progressive with relapses Current disease course: Progressive with relapses Previous disease therapies: Glatiramer acetate 2002, 9610-5029, 6021-1009 Fingolimod 07/2014-04/2016 (switched because of heart issues - had heart attack) Teriflunomide 7 mg 04/2016-10/2016 Prednisone x 10 days 03/2017 IVMP 01/25/17 x 1 dose Teriflunomide 14 mg daily Current disease therapy: Kesimpta (started 01/2023) Most recent MRI brain: 08/22/22 Most recent MRI cervical spine: 08/22/22 Most recent MRI thoracic spine: 08/22/22 CSF: 1998 JCV serology result and date: NA CHIEF COMPLAINT: Follow-up on MS disease modifying therapy INTERVAL HISTORY: Usual treating team: Pako/Carlos The patient is accompanied by self. The patient was last seen 07/30/22, currently taking Kesimpta . Was completely off Aricept when in the SNF and felt a difference in cognition. Now resumed but only once daily dosing (? Unclear why) and notes she has been feeling more confused since taking Aricept only once daily. Resumed BID dosing on her own the last 3-4 days and feeling better - our care coordinators called and spoke with psychiatry and they did not recommend changing Aricept dosing - our office did not recommend changing Aricept dosing Nerve burn on her neck on right. Has been effective for pain - it is gone. Planning to do ablation on the left as well due to pain radiating to left shoulder. Has been wearing lidoderm patch. Has had 2 nerve blocks already Went to urology to check out for UTI, UA/culture completed and reportedly tested negative for UTI Blood sugars have been improving (still high but in the 150 and 160, which is better than the 200s) - has cut back on drinking raspberry tea, drinking more low sugar cranberry juice Has been going to [facility] 3 times per week recently SUBJECTIVE & REVIEW OF SYSTEMS: Neuro-QoL Functions (higher=better functioning) Flowsheet Row Office Visit from 09/03/2022 in Neurology Office Visit from 11/14/2021 in [facility] Upper Extremity Domain T Score 43 33.84 Lower Extremity Domain T Score 39 38.83 Cognitive Function Domain T Score 40 39.53 Positive Affect Well Being T Score -- -- Ability To Participate In Social Roles T Score 42 42.88 Satisfaction With Social Roles T Score 46 42.46 Neuro-QoL Symptoms (higher=worse symptoms) Flowsheet Row Office Visit from 09/03/2022 in Neurology Office Visit from 11/14/2021 in [facility] Sleep Domain T Score 63 63.25 Fatigue Domain T Score 60 56.18 Anxiety Domain T Score 50 54.39 Depression Domain T Score 46 52.59 Stigma Domain T Score 63 59.93 Emotional Behavior Dyscontrol T Score -- -- *NeuroQoL is a multi-domain patient-reported quality of life questionnaire. PHQ-9 Flowsheet Row Office Visit from 07/01/2017 in [facility] PHQ-9 Score 22 *PHQ-9 is a questionnaire for depressive symptoms, with scores 0-4 indicating none, 5-9 mild, 10-14 moderate, 15-19 moderately severe, and 20-27 severe symptoms. PROMIS-10 Flowsheet Row Office Visit from 07/01/2017 in [facility] Global Physical Health T Score 26.7 Global Mental Health T Score 28.4 0-10 Standard Pain Scale 2 *PROMIS-10 is a patient-reported quality of life measure, typically reported as physical and mental domains. Here scores are expressed as percentiles, where the lowest possible score is one, the highest possible score is 99, and 50 is average. Refer to patient-entered data. Mood: PHQ9 responses reviewed and appear below Pain related to today's visit:reviewed on nursing intake documentation PAST HISTORY was reviewed and updated: PAST MEDICAL HISTORY Diagnosis Date Anxiety and depression Anxiety and depression Atrial fibrillation (HCC) Cardiomyopathy (HCC) Cervical myelopathy (HCC) CHF (congestive heart failure) (HCC) Cognitive impairment Colitis COPD (chronic obstructive pulmonary disease) (HCC) Diabetes (HCC) Dyslipidemia GI bleed History of loop recorder Hypertension IBS (irritable bowel syndrome) Multiple sclerosis ([facility]) Myocardial infarct, old 03/2016 Obesity Pancreatitis 1978 Renal insufficiency RLS (restless legs syndrome) Tobacco dependence Urinary incontinence PAST SURGICAL HISTORY Procedure Laterality Date BACK SURGERY HX lower x3 CARPAL TUNNEL lt and rt COLONOSCOPY FLX DX W/COLLJ SPEC WHEN PFRMD 10/12/14 Colonoscopy inpt [facility] COLONOSCOPY FLX DX W/COLLJ SPEC WHEN PFRMD 02/28/15 Colonoscopy FINGER SURGERY HX thumb reconstructed KNEE SURGERY HX lt x2 PAST SURGICAL HISTORY OF partial amputation of big toe PAST SURGICAL HISTORY OF Left 01/25/2015 great toe removal TONSILLECTOMY HX TUBAL LIGATION HX MEDICATIONS and ALLERGIES were reviewed and updated. SOCIAL HISTORY was reviewed and updated: Social History Tobacco Use Smoking status: Every Day Packs/day: 0.50 Years: 30.00 Pack years: 15 Types: Cigarettes Start date: 01/04/1973 Smokeless tobacco: Never Tobacco comments: Less than 10 Living situation: Living at home without assistance Employment Status / Disability: Disabled, permanently or temporarily OBJECTIVE: VITALS & WELLNESS: BP 137/73 Pulse 71 Wt 70.3 kg (155 lb) LMP 02/22/2000 (Approximate) BMI 28.35 kg/m MSPT Performance Tests 11/14/2021 07/01/2017 Processing Speed Total Number Correct 31 - Dominant hand - Right hand MDT Left Hand Time - 56.04 MDT Right Hand Time - 42.93 Walking Speed Test (25 feet) - 43.25 EXAM: Refer to patient-entered performance data RESULTS: Monitoring labs: CBC + Diff Component Value Date WBC 6.37 07/25/2022 HB 13.9 07/25/2022 HCT 43.0 07/25/2022 PLT 247 07/25/2022 ABSLYMPH 1.41 07/25/2022 CMP Component Value Date AST 13 07/25/2022 GLUC 216 (H) 07/25/2022 BUN 19 07/25/2022 CREAT 0.75 07/25/2022 NA 135 (L) 07/25/2022 K 4.0 07/25/2022 CHLOR 101 07/25/2022 ALT 10 07/25/2022 Lab Results Component Value Date JCV Antibody Positive (A) 02/27/2021 JCV Index Value 3.46 (H) 02/27/2021 Discrete MRI Results Component Value Date Brain New T2 Lesions None 08/22/2022 Brain New T2 Lesions None 08/22/2022 Brain Enhancing Lesions None 08/22/2022 Brain Enhancing Lesions None 08/22/2022 Cervical Spine New T2 Lesions None 08/22/2022 Cervical Spine New T2 Lesions None 08/22/2022 Cervical spine enhancing lesions None 08/22/2022 Cervical spine enhancing lesions None 08/22/2022 ASSESSMENT/PLAN: Elo Gray is a 66 year old female with Multiple Sclerosis. Patient is on Kesimpta for DMT. Reports good tolerance and compliance. Labs reviewed and acceptable. Brain, cervical and thoracic spine MRI reviewed and appears stable from MS standpoint. Reviewed degenerative changes more prominent in the thoracic spine and recommend referral to medical spine center for evaluation. Repeat brain MRI in 1 year. MRI of the brain and/or spinal cord is being ordered to evaluate for efficacy of multiple sclerosis (MS) disease modifying therapy. Disease activity in MS is often not immediately detectable on history or examination, but is sensitively identified on MRI. If identified, new or active MS lesions on MRI may represent suboptimal response to MS therapy, and would change medical management. Patient reports confusion in Aricept dosing since her stay in SNF. Reviewed with patient our office did not communicate any change in dosing to PCP and we spoke with psychiatry office who also did not recommend any changes in dosing. She has been taking Aricept 10 mg BID since 2018 per our records. Discussed monitoring for any extrapyramidal SE with addition of Seroquel (psychiatry is aware she is taking both medications) such as generalized rigidity, shuffling gait, facial grimacing. Continue to follow with specialists as directed and work towards tight diabetic control. Patient Health Education Discussed at Visit: Emotional Health/Wellness, Risks and Common side effects of MS medications, and Vitamin D supplementation Follow-up: In 6 months at [facility] I spent a total of 30 minutes on the date of the service which included preparing to see the patient, [id number] patient care, completing clinical documentation, obtaining and/or reviewing separately obtained history, counseling and educating the patient/family/caregiver, ordering medications, tests, or procedures, and communicating results to the patient/family/caregiver. Bill Woods PA-C The chart was reviewed for possible participation in the following studies:None documented in this encounter [facility] 09-01-2022 Miscellaneous Notes Received message from Maribell AJ with Dr Sultana's office. They did not recommend or discuss any dosage changes for Donepezil and suggest following up with PCPs office for further input. Routing to Bill Woods PA-C to review further at visit on 09-03-22. Maribell Cunha RN Received return call from JEAN MARIE Reyna with Dr Sultana's office. Provided clarification that we were looking to see if Dr Sultana had requested any dose changes to Aricept due to interactions with Seroquel. She will check with him and return call to office. She believes patient has been prescribed once daily dosing of Aricept from PCP office for quite some time, as far back as April 2022. Maribell Cunha RN Called patient, verified name and . Patient states she started to feel a little bit better yesterday but now had an episode of vomiting this morning. She feels it was a one and done. She is able to drink water and she will try to eat something, reviewed BRAT diet to start. She denies diarrhea or loose stool but states her stomach does ache a little bit. Patient states she has been so tired she is spending most of the day in bed. She believes this correlates to a recent dose reduction in Donepezil prescribed by PCP to just 10 mg a day, and she was previously on 20 mg a day since at least 2017. When she questioned her PCP office about the dose reduction when she picked up a refill, the nurse indicated they spoke with our office and we told them she was just on once daily. Notified patient this RN cannot see documentation of that conversation. She would like office to reach out to her psychiatrist Dr Juan Sultana in the [facility] to determine if the interaction between Seroquel. He placed her on Seroquel in April due to patient's difficulty sleeping and night terrors and it has been working well for her. Attempted to move up appointment with Bill Woods PA-C but patient declined, she has to use transportation services and she prefers to keep appointment next Thursday with Bill as scheduled. Relayed MRI results per Telephone encounter dated 08-27-22 from Bill Woods PA-C. She verbalized understanding of need for Spine Medicine Consult. Called Dr Juan Sultana office at , had to leave message requesting return call. Routing to Bill Woods PA-C to review and advise ahead of appointment next Thursday. Maribell Cunha RN documented in this encounter [facility] 08-28-2022 Miscellaneous Notes See 08-26-22 MyChart for documentation that message below has been relayed to patient. Maribell Cunha RN Please let patient know Dr. Kinsey and I reviewed MRI. Recommend spine center eval based on T-spine MRI degenerative findings. MRI looked stable from MS standpoint (no new lesions). Bill Woods PA-C documented in this encounter [facility] 08-22-2022 History of Present illness Narrative Radiology Service Progress Note DATE OF SERVICE: August 22, 2022 TIME: 9:47 AM PATIENT IDENTITY VERIFICATION COMPLETED USING TWO (2) STANDARD IDENTIFIERS: Name and Date of confirmed by patient verbally. FALL SCREENING: Has the patient had 2 falls in the last year or 1 fall with injury or currently using an Ambulatory Assistive Device (Walker, Cane, Wheelchair, Crutches, etc.)? Yes, Patient High Risk for Falls What interventions were put in place to prevent falls during this visit? Instructed Patient to Call for Help if Needed, Offered Assistance with Transfers/Clothing, Instructed Patient to Remain Seated (Not on Exam Table) Until Exam, and Increased Observations by Caregivers PATIENT GENDER DATA: Female. status: : No status: NO. PATIENT RELEVANT IMPLANT DATA REVIEWED: Yes ALLERGIES: Reviewed and unchanged CONTRAST ALLERGY: NO. EXAM: MRI - CONTRAST TYPE: GROUP II PERIPHERAL IV DATA: Ambulatory: A peripheral IV was started in the Right antecubital site with a Angio cath: 22 gauge. RADIOLOGY DEPARTMENT: MR; Exam(s) Completed: Head: Multiple Sclerosis Spine: Cervical spine and Thoracic spine SIGNATURE: RT Dann(Shea) PATIENT NAME: Elo Gray DATE: August 22, 2022 TIME: 9:47 AM documented in this encounter [facility] 08-07-2022 Miscellaneous Notes . documented in this encounter [facility] 08-06-2022 Instructions Rosa Flores APRN.CNP - 08/06/2022 11:11 AM EDT Sliding Scale Insulin Dosing Sliding Scale 2 (2 units for every 50 mg/dL > 150 mg/dL) SUPPLEMENTAL INSULIN If Blood Glucose (mg/dL) is < 150 Give 0 units 151-200 Give 2 units 201-250 Give 4 units 251-300 Give 6 units 301-350 Give 8 units 351-400 Give 10 units >400 Give 12 units, call physician if blood glucose does not improve. OZEMPIC 0.5 weekly injection FARXIGA 10 mg 1 tab daily ACTOS (PIOGLITAZONE) 30 mg 1 tab daily documented in this encounter [facility] 08-06-2022 History of Present illness Narrative NEW CONSULT OFFICE PROGRESS NOTE Reason for Consultation: DM Type 2 Referring Physician: SELF My final recommendations will be communicated back to the requesting physician by way of shared Medical record or letter via [place] mail. HISTORY OF PRESENT ILLNESS; Elo Gray is a 66 year old FEMALE is presenting as a new patient to me regarding DM Type 2. She was initially diagnosed with diabetes in 20 years Sts was in a skilled nursing for rehab for 6 weeks 'Cracked tailbone' - episodes of syncopy Physical therapy for 6 weeks Feeling better now COVID infection July 08 - day quarantined at [place] mild cold symptoms and bone aches Hx of MS Hx of remote pancreatitis (40 yrs ago) Sts dx was by [facility], she states im not that fond or confident of their decision) Ozempic started by PCP, patient tolerating well She does have a family history of diabetes mellitus in her Mother. The patient has no known microvascular complications of diabetes. Elo has no know macrovascular complications of diabetes.. DM Education Yes: Date: yes Knows how to carb count Yes//uses janice if needed DIETARY HISTORY: Breakfast: ensure shake most mornings, coffee or will skip altogether and just have coffee Lunch sandwich and non sweetened cranberry juice Dinner meal delivery - healthy choice, or other prepped meals or sandwich OR pizza OR burger fast food Snacks after supper - yellow raisins OR cheerios dry OR townhouse crackers Drinks coffee, cranberry juice, water occasionally raspberry juice sweetened (snapple) Exercise: previously PT, still following exercises from [facility] 3 times per week CURRENT DM MEDS Humalog SS IF NEEDED OZEMPIC 0.25 weekly injection (2 weeks) FARXIGA 10 mg 1 tab daily ACTOS 30 mg 1 tab daily SMBG Type of Monitor: Other Frequency of Monitorin times a day BG Values: Breakfast: 180-210 Lunch: Dinner: Bed-time: Values over past week: Highest ; Lowest Hypoglycemia: no Diet: as per above Exercise: PT exercises DM REVIEW OF SYSTEMS Last Eye Exam : 03/2022 - bilateral cataract surgery, scheduled again in several weeks Last Podiatry Exam: sees podiatry, great toe L foot amputation (infected blister) sees for nails Cardiorespiratory: negative, denies chest pain, pressure Claudication: no Dyslipidemia: Yes, controlled on medication High Blood Pressure: Yes, controlled on medication CURRENT LABS Component Latest Ref Rng & Units 07/25/2022 Protein, Total 6.3 - 8.0 g/dL 6.7 Albumin 3.9 - 4.9 g/dL 4.2 Calcium 8.5 - 10.2 mg/dL 9.9 Bilirubin, Total 0.2 - 1.3 mg/dL 0.3 Alkaline Phosphatase 34 - 123 U/L 108 AST 13 - 35 U/L 13 ALT 7 - 38 U/L 10 Glucose 74 - 99 mg/dL 216 (H) BUN 7 - 21 mg/dL 19 Creatinine 0.58 - 0.96 mg/dL 0.75 Sodium 136 - 144 mmol/L 135 (L) Potassium 3.7 - 5.1 mmol/L 4.0 Chloride 97 - 105 mmol/L 101 CO2 22 - 30 mmol/L 24 Anion Gap 9 - 18 mmol/L 10 eGFR >=60 mL/min/1.73m 87 PAST MEDICAL HISTORY Diagnosis Date Anxiety and depression Anxiety and depression Atrial fibrillation (HCC) Cardiomyopathy (HCC) Cervical myelopathy (HCC) CHF (congestive heart failure) (HCC) Cognitive impairment Colitis COPD (chronic obstructive pulmonary disease) (HCC) Diabetes (HCC) Dyslipidemia GI bleed History of loop recorder Hypertension IBS (irritable bowel syndrome) Multiple sclerosis (HCC) Myocardial infarct, old 03/2016 Obesity Pancreatitis 1978 Renal insufficiency RLS (restless legs syndrome) Tobacco dependence Urinary incontinence PAST SURGICAL HISTORY Procedure Laterality Date BACK SURGERY HX lower x3 CARPAL TUNNEL lt and rt COLONOSCOPY FLX DX W/COLLJ SPEC WHEN PFRMD 10/12/14 Colonoscopy inpt [facility] COLONOSCOPY FLX DX W/COLLJ SPEC WHEN PFRMD 02/28/15 Colonoscopy FINGER SURGERY HX thumb reconstructed KNEE SURGERY HX lt x2 PAST SURGICAL HISTORY OF partial amputation of big toe PAST SURGICAL HISTORY OF Left 01/25/2015 great toe removal TONSILLECTOMY HX TUBAL LIGATION HX FAMILY HISTORY Problem Relation Age of Onset Cancer Father lung Cancer Mother pancreatic Multiple Sclerosis No Family History Social History Tobacco Use Smoking status: Every Day Packs/day: 0.50 Years: 30.00 Pack years: 15.00 Types: Cigarettes Start date: 01/04/1973 Smokeless tobacco: Never Tobacco comments: Less than 10 Vaping Use Vaping Use: Never used Substance Use Topics Alcohol use: No Drug use: No Current Outpatient Medications Medication Sig HUMALOG KWIKPEN INSULIN 100 unit/mL Alosetron HCl 0.5 mg tablet cyanocobalamin (VITAMIN B-12) 1,000 mcg tab Take 1 tablet by mouth once daily. QUEtiapine (SEROQUEL) 50 mg tablet TAKE 1 TABLET BY MOUTH AT BEDTIME for mood OZEMPIC 0.25 mg or 0.5 mg (2 mg/3 mL) pen Inject 0.25 mg (0.4 mL) subcutaneously every week for 4 weeks, then increase to 0.5 mg weekly FARXIGA 10 mg tablet Take 10 mg by mouth every morning. modafinil (PROVIGIL) 200 mg tablet Take 1 tablet by mouth once daily for 180 days. ondansetron (ZOFRAN) 4 mg tablet Take 1 tablet by mouth every 8 hours as needed for nausea/vomiting. isosorbide mononitrate ER (IMDUR) 30 mg 24 hr tablet Take 1 tablet by mouth once daily. ferrous sulfate 325 mg (65 mg iron) tablet Take 1 tablet by mouth every 48 hours. carvedilol (COREG) 6.25 mg tablet Take 1 tablet by mouth twice daily with meals for 14 days. rOPINIRole (REQUIP) 1 mg tablet Take 2 mg by mouth daily at bedtime. eluxadoline (VIBERZI) 100 mg tab Take 100 mg by mouth twice daily. HYDROcodone-acetaminophen (NORCO) 5-325 mg per tablet Take 1 tablet by mouth every 8 hours as needed for pain. acetaminophen (TYLENOL) 500 mg tablet Take 500 mg by mouth every 6 hours as needed for pain. apixaban (ELIQUIS) 5 mg tab(s) Take 5 mg by mouth once daily. albuterol HFA (PROVENTIL HFA, VENTOLIN HFA) 90 mcg/actuation inhaler Inhale 2 Puffs as instructed every 4 hours as needed for wheezing/shortness of breath. vibegron (GEMTESA) 75 mg tablet Take 75 mg by mouth once daily. nitroglycerin sublingual (NITROQUICK) 0.4 mg SL tablet Dissolve 0.4 mg under the tongue every 5 minutes as needed. ofatumumab (KESIMPTA PEN) 20 mg/0.4 mL injection Inject 1 pen (0.4mL) under the skin once monthly beginning on week 8. pioglitazone (ACTOS) 30 mg tablet Take 30 mg by mouth once daily. pantoprazole DR (PROTONIX) 40 mg tablet Take 40 mg by mouth once daily. ondansetron orally disintegrating (ZOFRAN ODT) 4 mg disintegrating tablet Take 4 mg by mouth every 8 hours as needed for nausea/vomiting. DULoxetine (CYMBALTA) 30 mg capsule Take 30 mg by mouth twice daily. dicyclomine (BENTYL) 20 mg tablet Take 20 mg by mouth twice daily as needed. PROLIA 60 mg/mL once every 6 months. calcium carbonate (CALTRATE) 600 mg calcium (1,500 mg) tab Take 600 mg by mouth once daily. atorvastatin (LIPITOR) 40 mg tablet Take 40 mg by mouth once daily. acidophilus-pectin, citrus 7.5 mg (30 mill cell)-100 mg cap Take 7.5 mg by mouth once daily. ascorbic acid, vitamin C, (VITAMIN C) 500 mg tablet Take 1 tablet by mouth once daily. sucralfate (CARAFATE) 1 gram tablet Take 1 tablet by mouth four times daily. hydrOXYzine HCl (ATARAX) 50 mg tablet Take 1 tablet by mouth three times daily as needed. (Patient taking differently: Take 50 mg by mouth four times daily.) Cholecalciferol, Vitamin D3, 5,000 unit cap Take 1 capsule by mouth once daily. donepezil (ARICEPT) 10 mg tablet Take 2 tablets by mouth once daily. rOPINIRole (REQUIP) 1 mg tablet Take 1 mg by mouth daily with lunch. aspirin, enteric coated (ASPIRIN, ENTERIC COATED) 81 mg EC tablet Take 81 mg by mouth once daily. glimepiride (AMARYL) 4 mg tablet Take 4 mg by mouth twice daily with meals. No current facility-administered medications for this visit. ALLERGIES Allergen Reactions Aspirin Other: See Comments Indomethacin Other: See Comments Abilify [Aripiprazo* Other: See Comments Excessive drooling Clindamycin Intolerance Darvocet A500 [Prop* Intolerance Imitrex [Sumatripta* Vomiting BP went down Iodinated Contrast * Other: See Comments Iodine Intolerance Metformin GI Upset Stomach spasms Propoxyphene Other: See Comments REVIEW OF SYSTEMS - POSITIVES IN BOLD GENERAL:No weight loss, malaise or fevers HEENT:Negative for frequent or significant headaches, No changes in hearing or vision, no nose bleeds or other nasal problems NECK:Negative for lumps, goiter, pain and significant neck swelling RESPIRATORY: Negative for cough, hemoptysis, wheezing, COPD, dyspnea or shortness of breath CARDIOVASCULAR: Negative for chest pain, leg swelling, hypertension, CHF or palpitations PHYSICAL EXAMINATION: BP (P) 122/68 (BP Site: Left Arm, BP Position: Sitting, BP Cuff Size: Regular Adult) Pulse (P) 84 Wt 76.7 kg (169 lb) LMP 02/22/2000 (Approximate) BMI 30.91 kg/m General appearance: Well appearing, alert, in no acute distress, well-hydrated, well nourished. and Skin: Skin color, texture, turgor normal, no suspicious rashes or lesions Head: Normocephalic, no masses, lesions, tenderness or abnormalities Eyes: INCOLASA Neck: thyroid symmetric to inspection Acanthosis: none noted Extremities: Edema: none Neuro: Negative., Oriented X 3 ASSESSMENT: (E11.8) Type II diabetes mellitus with manifestations (HCC) (primary encounter diagnosis) Comment: STRONGLY RECOMMEND CGM to improve ability to monitor blood sugars, patient has some grasp changes due to her MS making it difficult to finger stick FREESTYLE JANAY CGM RECOMMEND INCREASE OZEMPIC TO 0.5 weekly injection ADD SS insulin #2 No changes to oral DM meds actos and farxiga. Sliding Scale Insulin Dosing Sliding Scale 2 (2 units for every 50 mg/dL > 150 mg/dL) SUPPLEMENTAL INSULIN If Blood Glucose (mg/dL) is < 150 Give 0 units 151-200 Give 2 units 201-250 Give 4 units 251-300 Give 6 units 301-350 Give 8 units 351-400 Give 10 units >400 Give 12 units, call physician if blood glucose does not improve. OZEMPIC 0.5 weekly injection FARXIGA 10 mg 1 tab daily ACTOS (PIOGLITAZONE) 30 mg 1 tab daily Recommended diet: Low carbohydrate and Low saturated fat, low simple sugar, high fiber diet Exercise minimally 150 minutes per week, increase as tolerated. Adequate hydration - 1/2 body wgt in oz of water daily, unless fluid restriction applies. I instructed the patient to monitor blood sugars 4 times per day If blood sugars are persistently high or low, to call our office. Patient to continue to follow up with her PCP and with other consultants regarding her other medical problems. Plan: COMP METABOLIC PANEL, LIPID PANEL, NONFASTING, ALBUMIN/CREAT RATIO RND UR, HGB A1C Rosa Flores CNP documented in this encounter [facility] 07-30-2022 History of Present illness Narrative Images from the original note were not included. [facility] FOR MULTIPLE SCLEROSIS FOLLOWUP/ESTABLISHED PATIENT VISIT PRINCIPAL NEUROLOGIC DIAGNOSIS: Multiple sclerosis DISEASE SUMMARY Date of onset: 12/1998 Date of diagnosis of MS: 1998 Disease course at onset: Progressive with relapses Current disease course: Progressive with relapses Previous disease therapies: Glatiramer acetate 2002, [id number], [id number] Fingolimod 07/2014-04/2016 (switched because of heart issues - had heart attack) Teriflunomide 7 mg 04/2016-10/2016 Prednisone x 10 days 03/2017 IVMP 01/25/17 x 1 dose Teriflunomide 14 mg daily Current disease therapy: Kesimpta (started 01/2023) Most recent MRI brain: 02/11/21 Most recent MRI cervical spine: 07/16/17 Most recent MRI thoracic spine: 07/16/17 CSF: 1998 JCV serology result and date: NA CHIEF COMPLAINT: Follow-up on MS disease modifying therapy INTERVAL HISTORY: Usual treating team: Mila The patient is accompanied by self. The patient was last seen 02/11/22, currently taking Kesimpta . Was 2 weeks late for Kesimpta dose when in SNF. Since the patient's last visit the patient reports overall feeling worse. Was in SNF for rehab x 6 weeks after fall (bruised tailbone) - was experiencing syncope. 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 Noticed a difference in cognition without it. Discussed interaction with Seroquel and Aricept with PCP and psychiatrist. Has been taking Provigil 200 mg qam, 100 qam. Running out of medication since taking more than Rx. Tested positive for Covid in the skilled nursing - July 08 - was supposed to go home on . Yunior's day but stayed longer due to mandatory quarantine - achy and head stuffed up for a couple days Went to a psychiatrist - they started her on Seroquel at the end of the year. Has helped her sleep - wasn't being given that in the SNF for about 3-4 days. Mood and sleep worse. They gave her Remeron instead? Cataract surgery in March on both eyes, new glasses Will be going back to the [facility] on Thursday Has PT once per week now SUBJECTIVE & REVIEW OF SYSTEMS: Neuro-QoL Functions (higher=better functioning) Flowsheet Row Office Visit from 11/14/2021 in [facility] Upper Extremity Domain T Score 33.84 Lower Extremity Domain T Score 38.83 Cognitive Function Domain T Score 39.53 Positive Affect Well Being T Score -- Ability To Participate In Social Roles T Score 42.88 Satisfaction With Social Roles T Score 42.46 Neuro-QoL Symptoms (higher=worse symptoms) Flowsheet Row Office Visit from 11/14/2021 in [facility] Sleep Domain T Score 63.25 Fatigue Domain T Score 56.18 Anxiety Domain T Score 54.39 Depression Domain T Score 52.59 Stigma Domain T Score 59.93 Emotional Behavior Dyscontrol T Score -- *NeuroQoL is a multi-domain patient-reported quality of life questionnaire. PHQ-9 Flowsheet Row Office Visit from 07/01/2017 in [facility] PHQ-9 Score 22 *PHQ-9 is a questionnaire for depressive symptoms, with scores 0-4 indicating none, 5-9 mild, 10-14 moderate, 15-19 moderately severe, and 20-27 severe symptoms. PROMIS-10 Flowsheet Row Office Visit from 07/01/2017 in [facility] Global Physical Health T Score 26.7 Global Mental Health T Score 28.4 0-10 Standard Pain Scale 2 *PROMIS-10 is a patient-reported quality of life measure, typically reported as physical and mental domains. Here scores are expressed as percentiles, where the lowest possible score is one, the highest possible score is 99, and 50 is average. Refer to patient-entered data. Mood: PHQ9 responses reviewed and appear below Pain related to today's visit:reviewed on nursing intake documentation Fatigue: Worse Memory/Concentration: See HPI PAST HISTORY was reviewed and updated: PAST MEDICAL HISTORY Diagnosis Date Anxiety and depression Anxiety and depression Atrial fibrillation (HCC) Cardiomyopathy (HCC) Cervical myelopathy (HCC) CHF (congestive heart failure) (HCC) Cognitive impairment Colitis COPD (chronic obstructive pulmonary disease) (HCC) Diabetes (HCC) Dyslipidemia GI bleed History of loop recorder Hypertension IBS (irritable bowel syndrome) Multiple sclerosis (HCC) Myocardial infarct, old 03/2016 Obesity Pancreatitis 1978 Renal insufficiency RLS (restless legs syndrome) Tobacco dependence Urinary incontinence PAST SURGICAL HISTORY Procedure Laterality Date BACK SURGERY HX lower x3 CARPAL TUNNEL lt and rt COLONOSCOPY FLX DX W/COLLJ SPEC WHEN PFRMD 10/12/14 Colonoscopy inpt [facility] COLONOSCOPY FLX DX W/COLLJ SPEC WHEN PFRMD 02/28/15 Colonoscopy FINGER SURGERY HX thumb reconstructed KNEE SURGERY HX lt x2 PAST SURGICAL HISTORY OF partial amputation of big toe PAST SURGICAL HISTORY OF Left 01/25/2015 great toe removal TONSILLECTOMY HX TUBAL LIGATION HX MEDICATIONS and ALLERGIES were reviewed and updated. SOCIAL HISTORY was reviewed and updated: Social History Tobacco Use Smoking status: Every Day Packs/day: 0.50 Years: 30.00 Pack years: 15 Types: Cigarettes Start date: 01/04/1973 Smokeless tobacco: Never Tobacco comments: Less than 10 Living situation: Living at home without assistance Employment Status / Disability: Disabled, permanently or temporarily OBJECTIVE: VITALS & WELLNESS: BP 123/57 Pulse (!) 57 Wt 73.9 kg (163 lb) LMP 02/22/2000 (Approximate) BMI 29.81 kg/m MSPT Performance Tests 11/14/2021 07/01/2017 Processing Speed Total Number Correct 31 - Dominant hand - Right hand MDT Left Hand Time - 56.04 MDT Right Hand Time - 42.93 Walking Speed Test (25 feet) - 43.25 EXAM: Refer to patient-entered performance data General Appearance: slightly disheveled. Facial hair. Absent dentition Mental status evaluation during the interview and examination showed normal level of consciousness, orientation, language, memory, praxis, and higher intellectual function. Reports memory issues Affect: Normal Extraocular movements: full, without SAMINA Facial sensation: Intact bilaterally Speech: dysarthric Muscle strength (#/5): Right Left Upper Extremity: Deltoids 5 5 Biceps 5 5 Triceps 5 5 Safety Specialist 5 5 Lower extremity: Iliopsoas 4+ 4 Quadriceps 5 5 Hamstrings 5 4+ Tibialis anterior 5 5 Gastrocnemius 5 5 Coordination: Upper extremity dexterity and rapid movements: decreased left Finger-nose: no dysmetria; coordination intact Standing balance: Impaired Standard gait: unsteady, wide-based. Assistive device: rollator RESULTS: Monitoring labs: CBC + Diff Component Value Date WBC 6.37 07/25/2022 HB 13.9 07/25/2022 HCT 43.0 07/25/2022 PLT 247 07/25/2022 ABSLYMPH 1.41 07/25/2022 CMP Component Value Date AST 13 07/25/2022 GLUC 216 (H) 07/25/2022 BUN 19 07/25/2022 CREAT 0.75 07/25/2022 NA 135 (L) 07/25/2022 K 4.0 07/25/2022 CHLOR 101 07/25/2022 ALT 10 07/25/2022 Lab Results Component Value Date JCV Antibody Positive (A) 02/27/2021 JCV Index Value 3.46 (H) 02/27/2021 Discrete MRI Results Component Value Date Brain New T2 Lesions None 05/26/2019 Brain Enhancing Lesions None 02/11/2021 ASSESSMENT/PLAN: Elo Gray is a 66 year old female with Multiple Sclerosis. Patient is on Kesimpta for DMT. Reports good tolerance and compliance - 2 weeks late for injection when in SNF. Also tested positive for COVID July 08. Notes increase in cognitive symptoms, fatigue, dysarthria, and sensory symptoms. Suspect this is multifactorial due to recent COVID infection, changes in medications while in SNF, and stress with change in environment being away from home. She reports symptoms have improved already since resuming typical medication regimen. We have referred her to endrocrinology for an opinion on diabetes management given elevated glucose and glucosuria on recent labs (A1C also reportedly 7.6 recently and just started on Ozempic). Will change Provigil to 100 mg BID. Continue PT outpatient and consider speech therapy for cognitive rehab/dysarthria. She has MRI scheduled for 08/22/22 to serve as new baseline for Kesimpta. MRI of the brain and/or spinal cord is being ordered to evaluate for efficacy of multiple sclerosis (MS) disease modifying therapy. Disease activity in MS is often not immediately detectable on history or examination, but is sensitively identified on MRI. If identified, new or active MS lesions on MRI may represent suboptimal response to MS therapy, and would change medical management. Continue to follow with specialists as directed (urology, cardiology, psychiatry, pain management). Encouraged smoking cessation. Continue Kesimpta Labs q6 months MRI as scheduled Provigil 100 mg BID Continue PT and consider speech therapy Patient Health Education Discussed at Visit: Aerobic exercise, Emotional Health/Wellness, Risks and Common side effects of MS medications, Smoking Cessation, Stretching, and Vitamin D supplementation Follow-up: after MRI I spent a total of 30 minutes on the date of the service which included preparing to see the patient, [id number] patient care, completing clinical documentation, obtaining and/or reviewing separately obtained history, performing a medically appropriate examination, counseling and educating the patient/family/caregiver, ordering medications, tests, or procedures, and communicating results to the patient/family/caregiver. Bill Woods PA-C The chart was reviewed for possible participation in the following studies:None documented in this encounter [facility] 07-29-2022 Miscellaneous Notes Called patient, notified of below. Provided scheduling phone number for Endocrine at [facility]. Patient is rescheduled for MRIs 08-22-22. She will keep follow up as scheduled with Bill Woods PA-C tomorrow. Maribell Cunha RN Please let patient know Dr. Kinsey and I reviewed her labs. Her glucose was elevated and she had glucose in the urine (4+). Recommend establishing with endocrinology. She is a known diabetic but if glucose is still persistently high, could explain why she is feeling poorly. Diabetes can also contribute to numbness/tingling in feet. B cell levels are still depleted despite missed Kesimpta doses. Bill Woods PA-C documented in this encounter [facility] 07-23-2022 Miscellaneous Notes Called patient, notified of message below. She saw PCP on Thursday for a checkup and reports BP was stable. Reviewed reasons to seek emergency care such as s/s stroke, CP, SOB. Patient verbalized understanding. She plans to obtain labs and urine testing tomorrow, but may need to be Thursday due to need to find transportation. Maribell Cunha RN Lab and urine orders placed. Recommend seeing PCP as well to evaluate for underlying medical contributors/illness/cardiac issues. Can move up MRI if scheduling allows. Please review signs and symptoms requiring emergent evaluation. Bill Woods PA-C Called patient, verified name and . Assisted to schedule patient for In Person appointment next Thursday07-30-22 at 10:15 with Bill Woods PA-C. Patient declined sooner appt due to need to arrange transportation. Patient reports she just came home from 6 weeks in an [facility] SNF for Physical Therapy after a fall that resulted in a fractured tailbone. She was also having syncope episodes at the time. Patient noticed onset of speech changes, slow speech, difficulty saying what she is thinking about 1 month ago. She had onset of numbness in the bottom of her feet bilaterally like gel pads for the past two months. Patient states she had cataract surgery in March which went well. She has had burning in her eyes and some foggy vision that resolves with blinking and using dry eye eye drops. Denies eye pain, double vision, loss of vision, or color change to vision. Patient reports generalized weakness. Patient states the speech changes/thinking changes and weakness are all symptoms she has experienced when she was initially diagnosed with MS. Patient reports urinary frequency, unsure if she has UTI but indicates she has had them frequently in the past. She is able to submit specimen to local [facility] needed. Patient states she was 6 weeks late on her last Kesimpta dose due to the stay at the SNF. She would like to move her MRI sooner if possible, message sent to scheduling to contact patient. Routing to Bill Woods PA-C to review and advise ahead of appointment next week. Length of call: 13 minutes Maribell Cunha RN documented in this encounter [facility] 07-23-2022 Miscellaneous Notes Duplicate. See other [facility] dated 07-19-22 for documentation/response. Maribell Cunha RN documented in this encounter [facility] 07-15-2022 History of Present illness Narrative [facility] Refill Assessment Medication(s): Kesimpta Patient's current medication list and adherence status to current therapy were reviewed by Specialty Pharmacy clinical pharmacist to identify any new drug interactions or non-compliance to therapy. Therapy continues to be appropriate for disease, patient response, and medical condition. Verification of therapeutic benefit and effectiveness with current therapy was completed. Adverse events, barriers in adherence, and side effects were assessed and addressed if applicable. Will proceed with refill with no changes in therapy - patient progressing towards achieving therapeutic goals based on medication-specific laboratory parameters, disease state markers and outcomes. Payroll Services Analyst Assessment Patient confirmed: Yes Med/dose confirmed: Yes Supplies needed: No supplies needed Missed doses: No Estimated days supply on hand: 0 Next cycle/dose due: 07/27/22 Copay amount: 0 Delivery method: FedEx Signature required: No Delivery address: [address] [place] [address] Delivery date: 07/23/22 Questions or concerns for the pharmacist?: No [facility] Visit Assessment - Neurology: Assessment to use: Refill Vaccination Assessment: Date of influenza vaccination reminder: 06/23/2022 Date of most recent vaccination assessment: 06/23/2022 Valerie Hendricks CPhT [facility] P: [phone] F: [phone] documented in this encounter [facility] 05-23-2022 History of Present illness Narrative Requested by: Other - CoverMyMeds ([place]: [id number])2 Medication Requested: Modafinil 200 mg. Tablets Insurance Name: Insurance PA phone #: Patient ID#: APPROVED from 05/23/2022 thru 11/20/2022, [id number]. documented in this encounter [facility] 03-05-2022 History of Present illness Narrative [facility] Assessment Medication(s): Bobsimpta Patient's current medication list and adherence status to current therapy were reviewed by Specialty Pharmacy clinical pharmacist to identify any new drug interactions or non-compliance to therapy. Therapy continues to be appropriate for disease, patient response, and medical condition. Verification of therapeutic benefit and effectiveness with current therapy was completed. Adverse events, barriers in adherence, and side effects were assessed and addressed if applicable. Will proceed with refill with no changes in therapy - patient progressing towards achieving therapeutic goals based on medication-specific laboratory parameters, disease state markers and outcomes. Payroll Services Analyst Assessment Patient confirmed: Yes Med/dose confirmed: Yes Supplies needed: No supplies needed Missed doses: No Estimated days supply on hand: 1 Next cycle/dose due: 03/06/22 (Per patient, 03/06/22 is her 3rd dose of the loading dose) Copay amount: 0 Payment confirmed: Yes Delivery method: FedEx Signature required: No Delivery address: [address], [facility] [facility] [address] Delivery date: 03/11/22 Questions or concerns for the pharmacist?: No [facility] Visit Assessment - Neurology: Assessment to use: Refill Vaccination Assessment: Date of influenza vaccination reminder: 03/29/2021 Date of most recent vaccination assessment: 03/29/2021 Fatuma Vásquez (Shop Fitter) documented in this encounter [facility] 02-11-2022 History of Present illness Narrative Images from the original note were not included. [facility] FOR MULTIPLE SCLEROSIS FOLLOWUP/ESTABLISHED PATIENT VISIT PRINCIPAL NEUROLOGIC DIAGNOSIS: Multiple sclerosis DISEASE SUMMARY Date of onset: 12/1998 Date of diagnosis of MS: 1998 Disease course at onset: Progressive with relapses Current disease course: Progressive with relapses Previous disease therapies: Glatiramer acetate 2002, [id number], [id number] Fingolimod 07/2014-04/2016 (switched because of heart issues - had heart attack) Teriflunomide 7 mg 04/2016-10/2016 Prednisone x 10 days 03/2017 IVMP 01/25/17 x 1 dose Current disease therapy: Teriflunomide 14 mg daily Most recent MRI brain: 02/11/21 Most recent MRI cervical spine: 07/16/17 Most recent MRI thoracic spine: 07/16/17 CSF: 1998 JCV serology result and date: NA CHIEF COMPLAINT: Follow-up on MS disease modifying therapy INTERVAL HISTORY: Usual treating team: Pako/Carlos The patient was last seen 11/14/21, currently not on DMT - awaiting Kesimpta start. Since the patient's last visit the patient reports overall feeling worse. Fall at [facility] - BP low - admitted for 4 days - then sent to inpatient rehab for PT (November 22-December 20) - also had a UTI then. Still seeing urology locally Currently has a UTI - ended up in ED on Thursday - being treated for it currently - on Keflex since Thursday night. Symptoms improved - has 3 days left Dizzy, lightheaded, wobbly, confused [place] hard to walk Eyes hard to focus Going to have cataract surgery in March SUBJECTIVE & REVIEW OF SYSTEMS: Neuro-QoL Functions (higher=better functioning) Flowsheet Row Office Visit from 11/14/2021 in [facility] Upper Extremity Domain T Score 33.84 Lower Extremity Domain T Score 38.83 Cognitive Function Domain T Score 39.53 Positive Affect Well Being T Score -- Ability To Participate In Social Roles T Score 42.88 Satisfaction With Social Roles T Score 42.46 Neuro-QoL Symptoms (higher=worse symptoms) Flowsheet Row Office Visit from 11/14/2021 in [facility] Sleep Domain T Score 63.25 Fatigue Domain T Score 56.18 Anxiety Domain T Score 54.39 Depression Domain T Score 52.59 Stigma Domain T Score 59.93 Emotional Behavior Dyscontrol T Score -- *NeuroQoL is a multi-domain patient-reported quality of life questionnaire. PHQ-9 Flowsheet Row Office Visit from 07/01/2017 in [facility] PHQ-9 Score 22 *PHQ-9 is a questionnaire for depressive symptoms, with scores 0-4 indicating none, 5-9 mild, 10-14 moderate, 15-19 moderately severe, and 20-27 severe symptoms. PROMIS-10 Flowsheet Row Office Visit from 07/01/2017 in [facility] Global Physical Health T Score 26.7 Global Mental Health T Score 28.4 0-10 Standard Pain Scale 2 *PROMIS-10 is a patient-reported quality of life measure, typically reported as physical and mental domains. Here scores are expressed as percentiles, where the lowest possible score is one, the highest possible score is 99, and 50 is average. Refer to patient-entered data. Mood: PHQ9 responses reviewed and appear below - stable Bladder: see HPI. Bowel: taking Viberzii for IBS Pain related to today's visit:reviewed on nursing intake documentation Fall risk: see HPI denies other falls Vision: see HPI PAST HISTORY was reviewed and updated: PAST MEDICAL HISTORY Diagnosis Date Anxiety and depression Anxiety and depression Atrial fibrillation (HCC) Cardiomyopathy (HCC) Cervical myelopathy (HCC) CHF (congestive heart failure) (HCC) Cognitive impairment Colitis COPD (chronic obstructive pulmonary disease) (HCC) Diabetes (HCC) Dyslipidemia GI bleed History of loop recorder Hypertension IBS (irritable bowel syndrome) Multiple sclerosis (HCC) Myocardial infarct, old 03/2016 Obesity Pancreatitis 1978 Renal insufficiency RLS (restless legs syndrome) Tobacco dependence Urinary incontinence PAST SURGICAL HISTORY Procedure Laterality Date BACK SURGERY HX lower x3 CARPAL TUNNEL lt and rt COLONOSCOPY FLX DX W/COLLJ SPEC WHEN PFRMD 10/12/14 Colonoscopy inpt [facility] COLONOSCOPY FLX DX W/COLLJ SPEC WHEN PFRMD 02/28/15 Colonoscopy FINGER SURGERY HX thumb reconstructed KNEE SURGERY HX lt x2 PAST SURGICAL HISTORY OF partial amputation of big toe PAST SURGICAL HISTORY OF Left 01/25/2015 great toe removal TONSILLECTOMY HX TUBAL LIGATION HX MEDICATIONS and ALLERGIES were reviewed and updated. SOCIAL HISTORY was reviewed and updated: Social History Tobacco Use Smoking status: Every Day Packs/day: 0.50 Years: 30.00 Pack years: 15 Types: Cigarettes Start date: 01/04/1973 Smokeless tobacco: Never Tobacco comments: Less than 10 Living situation: Living at home without assistance Employment Status / Disability: Disabled, permanently or temporarily OBJECTIVE: VITALS & WELLNESS: BP 106/67 Pulse 62 Ht 157.5 cm (5' 2) Wt 74.4 kg (164 lb) LMP 02/22/2000 (Approximate) BMI 30.00 kg/m MSPT Performance Tests 11/14/2021 07/01/2017 Processing Speed Total Number Correct 31 - Dominant hand - Right hand MDT Left Hand Time - 56.04 MDT Right Hand Time - 42.93 Walking Speed Test (25 feet) - 43.25 EXAM: Refer to patient-entered performance data General Appearance: slightly disheveled. Facial hair. Absent dentition Mental status evaluation during the interview and examination showed normal level of consciousness, orientation, language, memory, praxis, and higher intellectual function Affect: Normal Extraocular movements: full, without SAMINA Facial sensation: Intact bilaterally Speech: normal Muscle strength (#/5): Right Left Upper Extremity: Deltoids 5 5 Biceps 5 5 Triceps 5 5 Safety Specialist 5 5 Lower extremity: Iliopsoas 4+ 4 Quadriceps 5 5 Hamstrings 5 5- Tibialis anterior 5 5 Gastrocnemius 5 5 Coordination: Upper extremity dexterity and rapid movements: decreased left Finger-nose: no dysmetria; coordination intact Standing balance: Impaired Standard gait: unsteady, wide-based. Assistive device: rollator RESULTS: Monitoring labs: CBC + Diff Component Value Date WBC 4.66 12/16/2021 HB 10.0 (L) 12/16/2021 HCT 32.6 (L) 12/16/2021 PLT 196 12/16/2021 ABSLYMPH 1.05 11/15/2021 CMP Component Value Date AST 15 12/16/2021 GLUC 141 (H) 12/16/2021 BUN 17 12/16/2021 CREAT 0.64 12/16/2021 NA 139 12/16/2021 K 3.8 12/16/2021 CHLOR 106 12/16/2021 ALT 11 (L) 12/16/2021 Lab Results Component Value Date JCV Antibody Positive (A) 02/27/2021 JCV Index Value 3.46 (H) 02/27/2021 Discrete MRI Results Component Value Date Brain New T2 Lesions None 05/26/2019 Brain Enhancing Lesions None 02/11/2021 ASSESSMENT/PLAN: Elo Gray is a 66 year old female with Multiple Sclerosis. Patient is not on DMT - awaiting Kesimpta start. Was planning to start today but advised to wait until UTI has cleared up (still has 3 days remaining on Abx). Will plan for brain, cervical and thoracic spine MRI In about 3 months. MRI of the brain and/or spinal cord is being ordered to evaluate for efficacy of multiple sclerosis (MS) disease modifying therapy. Disease activity in MS is often not immediately detectable on history or examination, but is sensitively identified on MRI. If identified, new or active MS lesions on MRI may represent suboptimal response to MS therapy, and would change medical management. Encouraged smoking cessation. Continue PT exercises at home. Continues to follow with urology and cardiology. Patient Health Education Discussed at Visit: Emotional Health/Wellness and Risks and Common side effects of MS medications Follow-up: In 3 months at [facility] I spent a total of 25 minutes on the date of the service which included preparing to see the patient, [id number] patient care, completing clinical documentation, obtaining and/or reviewing separately obtained history, performing a medically appropriate examination, counseling and educating the patient/family/caregiver, ordering medications, tests, or procedures, and communicating results to the patient/family/caregiver. Bill Woods PA-C The chart was reviewed for possible participation in the following studies:None documented in this encounter [facility] 11-08-2021 History of Present illness Narrative [facility] Discontinuation Assessment: Disease group: Neurology Medication: AUBAGIO 14 MG TABLET Discontinue reason: Changing therapy Patient is switching from Aubagio to Kesimpta. Has appt scheduled on 11/19/21 for first dose observation of Kesimpta. Sophia Taylor PharmD Clinical Pharmacist, Biologics, Neurology, and Hepatology [facility] ; Pool: [facility] Pool #: [id number] UPDATE 11/08/21 12:51PM: THIS SHIPMENT IS NOT BEING SENT OUT. Per Dr. Kinsey, patient should stop Aubagio at this time in anticipation of having her first dose of Kesimpta on 11/19/21. Sophia Taylor PharmD Clinical Pharmacist, Biologics, Neurology, and Hepatology [facility] ; Pool: [facility] Pool #: [id number] [facility] Refill Assessment Medication(s): Aubagio Therapy continues to be appropriate for disease, patient response, and medical condition. Verification of therapeutic benefit and effectiveness with current therapy. Adverse events, barriers in adherence, and side effects assessed and addressed. Will proceed with refill with no changes. [facility] Visit Assessment - Neurology: Assessment to use: Refill Non-Clinical Assessment: Patient confirmed: Yes Med/dose confirmed: Yes Supplies needed: N/A Missed doses: No Estimated days supply on hand: 2 Next cycle/dose due: 11/09/2021 Copay amount: 0 Payment confirmed: Yes Address confirmed: Yes Delivery method: FedEx Delivery address: [address]; [place], [place] - fedex to knock to let pt know where pkg is Delivery date: 11/11/2021 Patient has questions: No Additional questions, comments, concerns: Pt indicated she has not yet started the kesimpta, appt isn't until 11/19 & needs to continue with Aubagio until then Vaccination Assessment: Date of influenza vaccination reminder: 03/29/2021 Date of most recent vaccination assessment: 03/29/2021 Deja Hendrix (Shop Fitter) documented in this encounter [facility] 11-06-2021 History of Present illness Narrative Patient was supposed to have first dose of Kesimpta in office on 10/22/21 for first dose observation, but she was feeling unwell when she was in the office so they did NOT administer. As of 11/06/21, patient still has not yet started Kesimpta. Will continue to follow her chart and will contact patient to set up Kesimpta refill accordingly once first dose observation is complete. Sophia Taylor, ChikaD Clinical Pharmacist, Biologics, Neurology, and Hepatology [facility] ; Pool: [facility] Pool #: [id number] documented in this encounter [facility] 10-28-2021 History of Past i llness Narrative Problem Noted Date Resolved Date Hypertensive emergency 10/28/2021 Right flank pain 10/28/2021 10/31/2021 RUQ pain 10/28/2021 10/31/2021 Chest pain 10/24/2021 10/31/2021 Gastrointestinal hemorrhage with melena 10/23/19 22 10/26/2021 Diarrhea 02/28/2015 02/28/2015 GI bleed 10/31/2021 Atrial fibrillation 10/24/2021 documented as of this encounter (statuses as of 11/06/2021) [facility] History of Past illness Narrative* Problem Noted Date Resolved Date Hypertensive emergency 10/28/2021 2 Right flank pain 10/28/2021 10/31/2021 RUQ pain 10/28/2021 10/31/2021 Chest pain 10/24/2021 10/31/2021 Gastrointestinal hemorrhage with melena 10/23/19 22 10/26/2021 Diarrhea 02/28/2015 02/28/2015 GI bleed 10/31/2021 Atrial fibrillation 10/24/2021 documented as of this encounter (statuses as of 11/08/2021) [facility] History of Past illness Narrative* Problem Noted Date Resolved Date Hypertensive emergency 10/28/2021 Right flank pain 10/28/2021 10/31/2021 RUQ pain 10/28/2021 10/31/2021 Chest pain 10/24/2021 10/31/2021 Gastrointestinal hemorrhage with melena 10/23/19 22 10/26/2021 Diarrhea 02/28/2015 02/28/2015 GI bleed 10/31/2021 Atrial fibrillation 10/24/2021 documented as of this encounter (statuses as of 02/11/2022) [facility] [facility] History of Past illness Narrative* Problem Noted Date Resolved Date Hypertensive emergency 10/28/2021 Right flank pain 10/28/2021 10/31/2021 RUQ pain 10/28/2021 10/31/2021 Chest pain 10/24/2021 10/31/2021 Gastrointestinal hemorrhage with melena 10/23/19 22 10/26/2021 Diarrhea 02/28/2015 02/28/2015 GI bleed 10/31/2021 Atrial fibrillation 10/24/2021 documented as of this encounter (statuses as of 03/05/2022) [facility]07-04-[facility]22 History of Past illness Narrative* Problem Noted Date Resolved Date Hypertensive emergency 10/28/2021 Right flank pain 10/28/2021 10/31/2021 RUQ pain 10/28/2021 10/31/2021 Chest pain 10/24/2021 10/31/2021 Gastrointestinal hemorrhage with melena 10/23/19 22 10/26/2021 Diarrhea 02/28/2015 02/28/2015 GI bleed 10/31/2021 Atrial fibrillation 10/24/2021 documented as of this encounter (statuses as of 06/26/2022) [facility] History of Past illness Narrative* Problem Noted Date Resolved Date Hypertensive emergency 10/28/2021 Right flank pain 10/28/2021 10/31/2021 RUQ pain 10/28/2021 10/31/2021 Chest pain 10/24/2021 10/31/2021 Gastrointestinal hemorrhage with melena 10/23/19 22 10/26/2021 Diarrhea 02/28/2015 02/28/2015 GI bleed 10/31/2021 Atrial fibrillation 10/24/2021 documented as of this encounter (statuses as of 06/30/2022) [facility] History of Past illness Narrative* Problem Noted Date Resolved Date Hypertensive emergency 10/28/2021 2 Right flank pain 10/28/2021 10/31/2021 RUQ pain 10/28/2021 10/31/2021 Chest pain 10/24/2021 10/31/2021 Gastrointestinal hemorrhage with melena 10/23/19 22 10/26/2021 Diarrhea 02/28/2015 02/28/2015 GI bleed 10/31/2021 Atrial fibrillation 10/24/2021 documented as of this encounter (statuses as of 07/15/2022) [facility] History of Past illness Narrative* Problem Noted Date Resolved Date Hypertensive emergency 10/28/2021 Right flank pain 10/28/2021 10/31/2021 RUQ pain 10/28/2021 10/31/2021 Chest pain 10/24/2021 10/31/2021 Gastrointestinal hemorrhage with melena 10/23/19 22 10/26/2021 Diarrhea 02/28/2015 02/28/2015 GI bleed 10/31/2021 Atrial fibrillation 10/24/2021 documented as of this encounter (statuses as of 07/23/2022) [facility] History of Past illness Narrative* Problem Noted Date Resolved Date Hypertensive emergency 10/28/2021 2 Right flank pain 10/28/2021 10/31/2021 RUQ pain 10/28/2021 10/31/2021 Chest pain 10/24/2021 10/31/2021 Gastrointestinal hemorrhage with melena 10/23/19 22 10/26/2021 Diarrhea 02/28/2015 02/28/2015 GI bleed 10/31/2021 Atrial fibrillation 10/24/2021 documented as of this encounter (statuses as of 07/23/2022) [facility] History of Past illness Narrative* Problem Noted Date Resolved Date Hypertensive emergency 10/28/2021 2 Right flank pain 10/28/2021 10/31/2021 RUQ pain 10/28/2021 10/31/2021 Chest pain 10/24/2021 10/31/2021 Gastrointestinal hemorrhage with melena 10/23/19 22 10/26/2021 Diarrhea 02/28/2015 02/28/2015 GI bleed 10/31/2021 Atrial fibrillation 10/24/2021 documented as of this encounter (statuses as of 07/30/2022) [facility] History of Past illness Narrative* Problem Noted Date Resolved Date Hypertensive emergency 10/28/2021 2 Right flank pain 10/28/2021 10/31/2021 RUQ pain 10/28/2021 10/31/2021 Chest pain 10/24/2021 10/31/2021 Gastrointestinal hemorrhage with melena 10/23/19 22 10/26/2021 Diarrhea 02/28/2015 02/28/2015 GI bleed 10/31/2021 Atrial fibrillation 10/24/2021 documented as of this encounter (statuses as of 07/30/2022) [facility] History of Past illness Narrative* Problem Noted Date Resolved Date Hypertensive emergency 10/28/2021 2 Right flank pain 10/28/2021 10/31/2021 RUQ pain 10/28/2021 10/31/2021 Chest pain 10/24/2021 10/31/2021 Gastrointestinal hemorrhage with melena 10/23/19 22 10/26/2021 Diarrhea 02/28/2015 02/28/2015 GI bleed 10/31/2021 Atrial fibrillation 10/24/2021 documented as of this encounter (statuses as of 08/04/2022) [facility] History of Past illness Narrative* Problem Noted Date Resolved Date Hypertensive emergency 10/28/2021 Right flank pain 10/28/2021 10/31/2021 RUQ pain 10/28/2021 10/31/2021 Chest pain 10/24/2021 10/31/2021 Gastrointestinal hemorrhage with melena 10/23/19 22 10/26/2021 Diarrhea 02/28/2015 02/28/2015 GI bleed 10/31/2021 Atrial fibrillation 10/24/2021 documented as of this encounter (statuses as of 08/07/2022) [facility] History of Past illness Narrative* Problem Noted Date Resolved Date Hypertensive emergency 10/28/2021 Right flank pain 10/28/2021 10/31/2021 RUQ pain 10/28/2021 10/31/2021 Chest pain 10/24/2021 10/31/2021 Gastrointestinal hemorrhage with melena 10/23/19 22 10/26/2021 Diarrhea 02/28/2015 02/28/2015 GI bleed 10/31/2021 Atrial fibrillation 10/24/2021 documented as of this encounter (statuses as of 08/08/2022) [facility] History of Past illness Narrative* Problem Noted Date Resolved Date Hypertensive emergency 10/28/2021 Right flank pain 10/28/2021 10/31/2021 RUQ pain 10/28/2021 10/31/2021 Chest pain 10/24/2021 10/31/2021 Gastrointestinal hemorrhage with melena 10/23/19 22 10/26/2021 Diarrhea 02/28/2015 02/28/2015 GI bleed 10/31/2021 Atrial fibrillation 10/24/2021 documented as of this encounter (statuses as of 08/28/2022) [facility] History of Past illness Narrative* Problem Noted Date Resolved Date Hypertensive emergency 10/28/2021 2 Right flank pain 10/28/2021 10/31/2021 RUQ pain 10/28/2021 10/31/2021 Chest pain 10/24/2021 10/31/2021 Gastrointestinal hemorrhage with melena 10/23/19 22 10/26/2021 Diarrhea 02/28/2015 02/28/2015 GI bleed 10/31/2021 Atrial fibrillation 10/24/2021 documented as of this encounter (statuses as of 08/30/2022) [facility] History of Past illness Narrative* Problem Noted Date Resolved Date Hypertensive emergency 10/28/2021 2 Right flank pain 10/28/2021 10/31/2021 RUQ pain 10/28/2021 10/31/2021 Chest pain 10/24/2021 10/31/2021 Gastrointestinal hemorrhage with melena 10/23/19 22 10/26/2021 Diarrhea 02/28/2015 02/28/2015 GI bleed 10/31/2021 Atrial fibrillation 10/24/2021 documented as of this encounter (statuses as of 09/01/2022) [facility] History of Past illness Narrative* Problem Noted Date Resolved Date Hypertensive emergency 10/28/2021 2 Right flank pain 10/28/2021 10/31/2021 RUQ pain 10/28/2021 10/31/2021 Chest pain 10/24/2021 10/31/2021 Gastrointestinal hemorrhage with melena 10/23/19 22 10/26/2021 Diarrhea 02/28/2015 02/28/2015 GI bleed 10/31/2021 Atrial fibrillation 10/24/2021 documented as of this encounter (statuses as of 09/03/2022) [facility] History of Past illness Narrative* Problem Noted Date Resolved Date Hypertensive emergency 10/28/2021 2 Right flank pain 10/28/2021 10/31/2021 RUQ pain 10/28/2021 10/31/2021 Chest pain 10/24/2021 10/31/2021 Gastrointestinal hemorrhage with melena 10/23/19 22 10/26/2021 Diarrhea 02/28/2015 02/28/2015 GI bleed 10/31/2021 Atrial fibrillation 10/24/2021 documented as of this encounter (statuses as of 09/24/2022) [facility] History of Past illness Narrative* Problem Noted Date Resolved Date Hypertensive emergency 10/28/2021 Right flank pain 10/28/2021 10/31/2021 RUQ pain 10/28/2021 10/31/2021 Chest pain 10/24/2021 10/31/2021 Gastrointestinal hemorrhage with melena 10/23/19 22 10/26/2021 Diarrhea 02/28/2015 02/28/2015 GI bleed 10/31/2021 Atrial fibrillation 10/24/2021 documented as of this encounter (statuses as of 10/10/2022) [facility] History of Past illness Narrative* Problem Noted Date Resolved Date Hypertensive emergency 10/28/2021 2 Right flank pain 10/28/2021 10/31/2021 RUQ pain 10/28/2021 10/31/2021 Chest pain 10/24/2021 10/31/2021 Gastrointestinal hemorrhage with melena 10/23/19 22 10/26/2021 Diarrhea 02/28/2015 02/28/2015 GI bleed 10/31/2021 Atrial fibrillation 10/24/2021 documented as of this encounter (statuses as of 10/13/2022) [facility] History of Past illness Narrative* Problem Noted Date Resolved Date Hypertensive emergency 10/28/2021 2 Right flank pain 10/28/2021 10/31/2021 RUQ pain 10/28/2021 10/31/2021 Chest pain 10/24/2021 10/31/2021 Gastrointestinal hemorrhage with melena 10/23/19 22 10/26/2021 Diarrhea 02/28/2015 02/28/2015 GI bleed 10/31/2021 Atrial fibrillation 10/24/2021 documented as of this encounter (statuses as of 10/17/2022) [facility] History of Past illness Narrative* Problem Noted Date Resolved Date Hypertensive emergency 10/28/2021 2 Right flank pain 10/28/2021 10/31/2021 RUQ pain 10/28/2021 10/31/2021 Chest pain 10/24/2021 10/31/2021 Gastrointestinal hemorrhage with melena 10/23/19 22 10/26/2021 Diarrhea 02/28/2015 02/28/2015 GI bleed 10/31/2021 Atrial fibrillation 10/24/2021 documented as of this encounter (statuses as of 10/23/2022) [facility] History of Past illness Narrative* Problem Noted Date Resolved Date Hypertensive emergency 10/28/2021 Right flank pain 10/28/2021 10/31/2021 RUQ pain 10/28/2021 10/31/2021 Chest pain 10/24/2021 10/31/2021 Gastrointestinal hemorrhage with melena 10/23/19 22 10/26/2021 Diarrhea 02/28/2015 02/28/2015 GI bleed 10/31/2021 Atrial fibrillation 10/24/2021 documented as of this encounter (statuses as of 10/24/2022) [facility] History of Past illness Narrative* Problem Noted Date Diagnosed Date Resolved Date Hypertensive emergency 10/28/202110/31 Right flank pain 10/28/2021 10/31/2021 RUQ pain 10/28/2021 10/31/2021 Chest pain 10/24/2021 10/31/2021 Gastrointestinal hemorrhage with melena 10/22/2021 10/26/2021 Diarrhea 02/28/2015 02/28/2015 GI bleed 10/31/2021 Atrial fibrillation 10/25/19 22 documented as of this encounter (statuses as of 11/11/2022) [facility] History of Past illness Narrative* Problem Noted Date Diagnosed Date Resolved Date Hypertensive emergency 10/28/202110/31 Right flank pain 10/28/2021 10/31/2021 RUQ pain 10/28/2021 10/31/2021 Chest pain 10/24/2021 10/31/2021 Gastrointestinal hemorrhage with melena 10/22/2021 10/26/2021 Diarrhea 02/28/2015 02/28/2015 GI bleed 10/31/2021 Atrial fibrillation 10/25/19 22 documented as of this encounter (statuses as of 11/20/2022) [facility] History of Past illness Narrative* Problem Noted Date Diagnosed Date Resolved Date Hypertensive emergency 10/28/202110/31 Right flank pain 10/28/2021 10/31/2021 RUQ pain 10/28/2021 10/31/2021 Chest pain 10/24/2021 10/31/2021 Gastrointestinal hemorrhage with melena 10/22/2021 10/26/2021 Diarrhea 02/28/2015 02/28/2015 GI bleed 10/31/2021 Atrial fibrillation 10/25/19 22 documented as of this encounter (statuses as of 11/21/2022) [facility] History of Past illness Narrative* Problem Noted Date Diagnosed Date Resolved Date Hypertensive emergency 10/28/202110/31 Right flank pain 10/28/2021 10/31/2021 RUQ pain 10/28/2021 10/31/2021 Chest pain 10/24/2021 10/31/2021 Gastrointestinal hemorrhage with melena 10/22/2021 10/26/2021 Diarrhea 02/28/2015 02/28/2015 GI bleed 10/31/2021 Atrial fibrillation 10/25/19 22 documented as of this encounter (statuses as of 11/24/2022) [facility] History of Past illness Narrative* Problem Noted Date Diagnosed Date Resolved Date Hypertensive emergency 10/28/202110/31 Right flank pain 10/28/2021 10/31/2021 RUQ pain 10/28/2021 10/31/2021 Chest pain 10/24/2021 10/31/2021 Gastrointestinal hemorrhage with melena 10/22/2021 10/26/2021 Diarrhea 02/28/2015 02/28/2015 GI bleed 10/31/2021 Atrial fibrillation 10/25/19 22 documented as of this encounter (statuses as of 11/24/2022) [facility] History of Past illness Narrative* Problem Noted Date Diagnosed Date Resolved Date Hypertensive emergency 10/28/202110/31 Right flank pain 10/28/2021 10/31/2021 RUQ pain 10/28/2021 10/31/2021 Chest pain 10/24/2021 10/31/2021 Gastrointestinal hemorrhage with melena 10/22/2021 10/26/2021 Diarrhea 02/28/2015 02/28/2015 GI bleed 10/31/2021 Atrial fibrillation 10/25/19 22 documented as of this encounter (statuses as of 12/02/2022) [facility] History of Past illness Narrative* Problem Noted Date Diagnosed Date Resolved Date Hypertensive emergency 10/28/202110/31 Right flank pain 10/28/2021 10/31/2021 RUQ pain 10/28/2021 10/31/2021 Chest pain 10/24/2021 10/31/2021 Gastrointestinal hemorrhage with melena 10/22/2021 10/26/2021 Diarrhea 02/28/2015 02/28/2015 GI bleed 10/31/2021 Atrial fibrillation 10/25/19 22 documented as of this encounter (statuses as of 12/04/2022) [facility] History of Past illness Narrative* Problem Noted Date Diagnosed Date Resolved Date Hypertensive emergency 10/28/202110/31 Right flank pain 10/28/2021 10/31/2021 RUQ pain 10/28/2021 10/31/2021 Chest pain 10/24/2021 10/31/2021 Gastrointestinal hemorrhage with melena 10/22/2021 10/26/2021 Diarrhea 02/28/2015 02/28/2015 GI bleed 10/31/2021 Atrial fibrillation 10/25/19 22 documented as of this encounter (statuses as of 12/04/2022) [facility] History of Past illness Narrative* Problem Noted Date Diagnosed Date Resolved Date Hypertensive emergency 10/28/202110/31 Right flank pain 10/28/2021 10/31/2021 RUQ pain 10/28/2021 10/31/2021 Chest pain 10/24/2021 10/31/2021 Gastrointestinal hemorrhage with melena 10/22/2021 10/26/2021 Diarrhea 02/28/2015 02/28/2015 GI bleed 10/31/2021 Atrial fibrillation 10/25/19 22 documented as of this encounter (statuses as of 12/11/2022) [facility] History of Past illness Narrative* Problem Noted Date Diagnosed Date Resolved Date Hypertensive emergency 10/28/202110/31 Right flank pain 10/28/2021 10/31/2021 RUQ pain 10/28/2021 10/31/2021 Chest pain 10/24/2021 10/31/2021 Gastrointestinal hemorrhage with melena 10/22/2021 10/26/2021 Diarrhea 02/28/2015 02/28/2015 GI bleed 10/31/2021 Atrial fibrillation 10/25/19 22 documented as of this encounter (statuses as of 2022) [facility] History of Past illness Narrative* Problem Noted Date Diagnosed Date Resolved Date Hypertensive emergency 10/28/202110/31 Right flank pain 10/28/2021 10/31/2021 RUQ pain 10/28/2021 10/31/2021 Chest pain 10/24/2021 10/31/2021 Gastrointestinal hemorrhage with melena 10/22/2021 10/26/2021 Diarrhea 02/28/2015 02/28/2015 GI bleed 10/31/2021 Atrial fibrillation 10/25/19 22 documented as of this encounter (statuses as of 2022) [facility] History of Past illness Narrative* Problem Noted Date Diagnosed Date Resolved Date Hypertensive emergency 10/28/202110/31 Right flank pain 10/28/2021 10/31/2021 RUQ pain 10/28/2021 10/31/2021 Chest pain 10/24/2021 10/31/2021 Gastrointestinal hemorrhage with melena 10/22/2021 10/26/2021 Diarrhea 02/28/2015 02/28/2015 GI bleed 10/31/2021 Atrial fibrillation 10/25/19 22 documented as of this encounter (statuses as of 12/14/2022) [facility] History of Past illness Narrative* Problem Noted Date Diagnosed Date Resolved Date Hypertensive emergency 10/28/202110/31 Right flank pain 10/28/2021 10/31/2021 RUQ pain 10/28/2021 10/31/2021 Chest pain 10/24/2021 10/31/2021 Gastrointestinal hemorrhage with melena 10/22/2021 10/26/2021 Diarrhea 02/28/2015 02/28/2015 GI bleed 10/31/2021 Atrial fibrillation 10/25/19 22 documented as of this encounter (statuses as of 12/15/2022) [facility] History of Past illness Narrative* Problem Noted Date Diagnosed Date Resolved Date Hypertensive emergency 10/28/202110/31 Right flank pain 10/28/2021 10/31/2021 RUQ pain 10/28/2021 10/31/2021 Chest pain 10/24/2021 10/31/2021 Gastrointestinal hemorrhage with melena 10/22/2021 10/26/2021 Diarrhea 02/28/2015 02/28/2015 GI bleed 10/31/2021 Atrial fibrillation 10/25/19 22 documented as of this encounter (statuses as of 12/19/2022) [facility] History of Past illness Narrative* Problem Noted Date Diagnosed Date Resolved Date Hypertensive emergency 10/28/202110/31 Right flank pain 10/28/2021 10/31/2021 RUQ pain 10/28/2021 10/31/2021 Chest pain 10/24/2021 10/31/2021 Gastrointestinal hemorrhage with melena 10/22/2021 10/26/2021 Diarrhea 02/28/2015 02/28/2015 GI bleed 10/31/2021 Atrial fibrillation 10/25/19 22 documented as of this encounter (statuses as of 12/22/2022) [facility] History of Past illness Narrative* Problem Noted Date Diagnosed Date Resolved Date Hypertensive emergency 10/28/202110/31 Right flank pain 10/28/2021 10/31/2021 RUQ pain 10/28/2021 10/31/2021 Chest pain 10/24/2021 10/31/2021 Gastrointestinal hemorrhage with melena 10/22/2021 10/26/2021 Diarrhea 02/28/2015 02/28/2015 GI bleed 10/31/2021 Atrial fibrillation 10/25/19 22 documented as of this encounter (statuses as of 12/22/2022) [facility] History of Past illness Narrative* Problem Noted Date Diagnosed Date Resolved Date Hypertensive emergency 10/28/202110/31 Right flank pain 10/28/2021 10/31/2021 RUQ pain 10/28/2021 10/31/2021 Chest pain 10/24/2021 10/31/2021 Gastrointestinal hemorrhage with melena 10/22/2021 10/26/2021 Diarrhea 02/28/2015 02/28/2015 GI bleed 10/31/2021 Atrial fibrillation 10/25/19 22 documented as of this encounter (statuses as of 12/31/2022) [facility] History of Past illness Narrative* Problem Noted Date Diagnosed Date Resolved Date Hypertensive emergency 10/28/202110/31 Right flank pain 10/28/2021 10/31/2021 RUQ pain 10/28/2021 10/31/2021 Chest pain 10/24/2021 10/31/2021 Gastrointestinal hemorrhage with melena 10/22/2021 10/26/2021 Diarrhea 02/28/2015 02/28/2015 GI bleed 10/31/2021 Atrial fibrillation 10/25/19 22 documented as of this encounter (statuses as of 01/09/2023) [facility] History of Past illness Narrative* Problem Noted Date Diagnosed Date Resolved Date Hypertensive emergency 10/28/202110/31 Right flank pain 10/28/2021 10/31/2021 RUQ pain 10/28/2021 10/31/2021 Chest pain 10/24/2021 10/31/2021 Gastrointestinal hemorrhage with melena 10/22/2021 10/26/2021 Diarrhea 02/28/2015 02/28/2015 GI bleed 10/31/2021 Atrial fibrillation 10/25/19 22 documented as of this encounter (statuses as of 01/13/2023) [facility] History of Past illness Narrative* Problem Noted Date Diagnosed Date Resolved Date Hypertensive emergency 10/28/202110/31 Right flank pain 10/28/2021 10/31/2021 RUQ pain 10/28/2021 10/31/2021 Chest pain 10/24/2021 10/31/2021 Gastrointestinal hemorrhage with melena 10/22/2021 10/26/2021 Diarrhea 02/28/2015 02/28/2015 GI bleed 10/31/2021 Atrial fibrillation 10/25/19 22 documented as of this encounter (statuses as of 01/15/2023) [facility] History of Past illness Narrative* Problem Noted Date Diagnosed Date Resolved Date Hypertensive emergency 10/28/202110/31 Right flank pain 10/28/2021 10/31/2021 RUQ pain 10/28/2021 10/31/2021 Chest pain 10/24/2021 10/31/2021 Gastrointestinal hemorrhage with melena 10/22/2021 10/26/2021 Diarrhea 02/28/2015 02/28/2015 GI bleed 10/31/2021 Atrial fibrillation 10/25/19 22 documented as of this encounter (statuses as of 01/15/2023) [facility] History of Past illness Narrative* Problem Noted Date Diagnosed Date Resolved Date Hypertensive emergency 10/28/202110/31 Right flank pain 10/28/2021 10/31/2021 RUQ pain 10/28/2021 10/31/2021 Chest pain 10/24/2021 10/31/2021 Gastrointestinal hemorrhage with melena 10/22/2021 10/26/2021 Diarrhea 02/28/2015 02/28/2015 GI bleed 10/31/2021 Atrial fibrillation 10/25/19 22 documented as of this encounter (statuses as of 01/16/2023) [facility] History of Past illness Narrative* Problem Noted Date Diagnosed Date Resolved Date Hypertensive emergency 10/28/202110/31 Right flank pain 10/28/2021 10/31/2021 RUQ pain 10/28/2021 10/31/2021 Chest pain 10/24/2021 10/31/2021 Gastrointestinal hemorrhage with melena 10/22/2021 10/26/2021 Diarrhea 02/28/2015 02/28/2015 GI bleed 10/31/2021 Atrial fibrillation 10/25/19 22 documented as of this encounter (statuses as of 01/16/2023) [facility] History of Past illness Narrative* Problem Noted Date Diagnosed Date Resolved Date Hypertensive emergency 10/28/202110/31 Right flank pain 10/28/2021 10/31/2021 RUQ pain 10/28/2021 10/31/2021 Chest pain 10/24/2021 10/31/2021 Gastrointestinal hemorrhage with melena 10/22/2021 10/26/2021 Diarrhea 02/28/2015 02/28/2015 GI bleed 10/31/2021 Atrial fibrillation 10/25/19 22 documented as of this encounter (statuses as of 01/19/2023) [facility] History of Past illness Narrative* Problem Noted Date Diagnosed Date Resolved Date Hypertensive emergency 10/28/202110/31 Right flank pain 10/28/2021 10/31/2021 RUQ pain 10/28/2021 10/31/2021 Chest pain 10/24/2021 10/31/2021 Gastrointestinal hemorrhage with melena 10/22/2021 10/26/2021 Diarrhea 02/28/2015 02/28/2015 GI bleed 10/31/2021 Atrial fibrillation 10/25/19 22 documented as of this encounter (statuses as of 01/20/2023) [facility] History of Past illness Narrative* Problem Noted Date Diagnosed Date Resolved Date Hypertensive emergency 10/28/202110/31 Right flank pain 10/28/2021 10/31/2021 RUQ pain 10/28/2021 10/31/2021 Chest pain 10/24/2021 10/31/2021 Gastrointestinal hemorrhage with melena 10/22/2021 10/26/2021 Diarrhea 02/28/2015 02/28/2015 GI bleed 10/31/2021 Atrial fibrillation 10/25/19 22 documented as of this encounter (statuses as of 01/24/2023) [facility] History of Past illness Narrative* Problem Noted Date Diagnosed Date Resolved Date Hypertensive emergency 10/28/202110/31 Right flank pain 10/28/2021 10/31/2021 RUQ pain 10/28/2021 10/31/2021 Chest pain 10/24/2021 10/31/2021 Gastrointestinal hemorrhage with melena 10/22/2021 10/26/2021 Diarrhea 02/28/2015 02/28/2015 GI bleed 10/31/2021 Atrial fibrillation 10/25/19 22 documented as of this encounter (statuses as of 01/25/2023) [facility] History of Past illness Narrative* Problem Noted Date Diagnosed Date Resolved Date Hypertensive emergency 10/28/202110/31 Right flank pain 10/28/2021 10/31/2021 RUQ pain 10/28/2021 10/31/2021 Chest pain 10/24/2021 10/31/2021 Gastrointestinal hemorrhage with melena 10/22/2021 10/26/2021 Diarrhea 02/28/2015 02/28/2015 GI bleed 10/31/2021 Atrial fibrillation 10/25/19 22 documented as of this encounter (statuses as of 01/28/2023) [facility] History of Past illness Narrative* Problem Noted Date Diagnosed Date Resolved Date Hypertensive emergency 10/28/202110/31 Right flank pain 10/28/2021 10/31/2021 RUQ pain 10/28/2021 10/31/2021 Chest pain 10/24/2021 10/31/2021 Gastrointestinal hemorrhage with melena 10/22/2021 10/26/2021 Diarrhea 02/28/2015 02/28/2015 GI bleed 10/31/2021 Atrial fibrillation 10/25/19 22 documented as of this encounter (statuses as of 01/31/2023) [facility] History of Past illness Narrative* Problem Noted Date Diagnosed Date Resolved Date Hypertensive emergency 10/28/202110/31 Right flank pain 10/28/2021 10/31/2021 RUQ pain 10/28/2021 10/31/2021 Chest pain 10/24/2021 10/31/2021 Gastrointestinal hemorrhage with melena 10/22/2021 10/26/2021 Diarrhea 02/28/2015 02/28/2015 GI bleed 10/31/2021 Atrial fibrillation 10/25/19 22 documented as of this encounter (statuses as of 01/31/2023) [facility] History of Past illness Narrative* Problem Noted Date Diagnosed Date Resolved Date Hypertensive emergency 10/28/202110/31 Right flank pain 10/28/2021 10/31/2021 RUQ pain 10/28/2021 10/31/2021 Chest pain 10/24/2021 10/31/2021 Gastrointestinal hemorrhage with melena 10/22/2021 10/26/2021 Diarrhea 02/28/2015 02/28/2015 GI bleed 10/31/2021 Atrial fibrillation 10/25/19 22 documented as of this encounter (statuses as of 02/03/2023) [facility] History of Past illness Narrative* Problem Noted Date Diagnosed Date Resolved Date Hypertensive emergency 10/28/202110/31 Right flank pain 10/28/2021 10/31/2021 RUQ pain 10/28/2021 10/31/2021 Chest pain 10/24/2021 10/31/2021 Gastrointestinal hemorrhage with melena 10/22/2021 10/26/2021 Diarrhea 02/28/2015 02/28/2015 GI bleed 10/31/2021 Atrial fibrillation 10/25/19 22 documented as of this encounter (statuses as of 02/04/2023) [facility]-04-2022 History of Past illness Narrative* Problem Noted Date Diagnosed Date Resolved Date Hypertensive emergency 10/28/202110/31 Right flank pain 10/28/2021 10/31/2021 RUQ pain 10/28/2021 10/31/2021 Chest pain 10/24/2021 10/31/2021 Gastrointestinal hemorrhage with melena 10/22/2021 10/26/2021 Diarrhea 02/28/2015 02/28/2015 GI bleed 10/31/2021 Atrial fibrillation 10/25/19 22 documented as of this encounter (statuses as of 02/06/2023) [facility]2022 History of Past illness Narrative* Problem Noted Date Diagnosed Date Resolved Date Hypertensive emergency 10/28/202110/31 Right flank pain 10/28/2021 10/31/2021 RUQ pain 10/28/2021 10/31/2021 Chest pain 10/24/2021 10/31/2021 Gastrointestinal hemorrhage with melena 10/22/2021 10/26/2021 Diarrhea 02/28/2015 02/28/2015 GI bleed 10/31/2021 Atrial fibrillation 10/25/19 22 documented as of this encounter (statuses as of 02/11/2023) [facility]20[facility] History of Past illness Narrative* Problem Noted Date Diagnosed Date Resolved Date Hypertensive emergency 10/28/202110/31 Right flank pain 10/28/2021 10/31/2021 RUQ pain 10/28/2021 10/31/2021 Chest pain 10/24/2021 10/31/2021 Gastrointestinal hemorrhage with melena 10/22/2021 10/26/2021 Diarrhea 02/28/2015 02/28/2015 GI bleed 10/31/2021 Atrial fibrillation 10/25/19 22 documented as of this encounter (statuses as of 02/13/2023) [facility]20[facility] History of Past illness Narrative* Problem Noted Date Diagnosed Date Resolved Date Hypertensive emergency 10/28/202110/31 Right flank pain 10/28/2021 10/31/2021 RUQ pain 10/28/2021 10/31/2021 Chest pain 10/24/2021 10/31/2021 Gastrointestinal hemorrhage with melena 10/22/2021 10/26/2021 Diarrhea 02/28/2015 02/28/2015 GI bleed 10/31/2021 Atrial fibrillation 10/25/19 22 documented as of this encounter (statuses as of 02/18/2023) [facility]20[facility] History of Past illness Narrative* Problem Noted Date Diagnosed Date Resolved Date Hypertensive emergency 10/28/202110/31 Right flank pain 10/28/2021 10/31/2021 RUQ pain 10/28/2021 10/31/2021 Chest pain 10/24/2021 10/31/2021 Gastrointestinal hemorrhage with melena 10/22/2021 10/26/2021 Diarrhea 02/28/2015 02/28/2015 GI bleed 10/31/2021 Atrial fibrillation 10/25/19 22 documented as of this encounter (statuses as of 02/18/2023) [address]04-2022 History of Past illness Narrative* Problem Noted Date Diagnosed Date Resolved Date Hypertensive emergency 10/28/202110/31 Right flank pain 10/28/2021 10/31/2021 RUQ pain 10/28/2021 10/31/2021 Chest pain 10/24/2021 10/31/2021 Gastrointestinal hemorrhage with melena 10/22/2021 10/26/2021 Diarrhea 02/28/2015 02/28/2015 GI bleed 10/31/2021 Atrial fibrillation 10/25/19 22 documented as of this encounter (statuses as of 02/23/2023) [facility]20[facility] History of Past illness Narrative* Problem Noted Date Diagnosed Date Resolved Date Hypertensive emergency 10/28/202110/31 Right flank pain 10/28/2021 10/31/2021 RUQ pain 10/28/2021 10/31/2021 Chest pain 10/24/2021 10/31/2021 Gastrointestinal hemorrhage with melena 10/22/2021 10/26/2021 Diarrhea 02/28/2015 02/28/2015 GI bleed 10/31/2021 Atrial fibrillation 10/25/19 22 documented as of this encounter (statuses as of 03/02/2023) [facility]04[facility]2022 History of Past illness Narrative* Problem Noted Date Diagnosed Date Resolved Date Hypertensive emergency 10/28/202110/31 Right flank pain 10/28/2021 10/31/2021 RUQ pain 10/28/2021 10/31/2021 Chest pain 10/24/2021 10/31/2021 Gastrointestinal hemorrhage with melena 10/22/2021 10/26/2021 Diarrhea 02/28/2015 02/28/2015 GI bleed 10/31/2021 Atrial fibrillation 10/25/19 22 documented as of this encounter (statuses as of 03/05/2023) [facility]04[facility]2022 History of Past illness Narrative* Problem Noted Date Diagnosed Date Resolved Date Hypertensive emergency 10/28/202110/31 Right flank pain 10/28/2021 10/31/2021 RUQ pain 10/28/2021 10/31/2021 Chest pain 10/24/2021 10/31/2021 Gastrointestinal hemorrhage with melena 10/22/2021 10/26/2021 Diarrhea 02/28/2015 02/28/2015 GI bleed 10/31/2021 Atrial fibrillation 10/25/19 22 documented as of this encounter (statuses as of 03/05/2023) [facility]20[facility] History of Past illness Narrative* Problem Noted Date Diagnosed Date Resolved Date Hypertensive emergency 10/28/202110/31 Right flank pain 10/28/2021 10/31/2021 RUQ pain 10/28/2021 10/31/2021 Chest pain 10/24/2021 10/31/2021 Gastrointestinal hemorrhage with melena 10/22/2021 10/26/2021 Diarrhea 02/28/2015 02/28/2015 GI bleed 10/31/2021 Atrial fibrillation 10/25/19 22 documented as of this encounter (statuses as of 03/05/2023) [facility]2022 History of Past illness Narrative* Problem Noted Date Diagnosed Date Resolved Date Hypertensive emergency 10/28/202110/31 Right flank pain 10/28/2021 10/31/2021 RUQ pain 10/28/2021 10/31/2021 Chest pain 10/24/2021 10/31/2021 Gastrointestinal hemorrhage with melena 10/22/2021 10/26/2021 Diarrhea 02/28/2015 02/28/2015 GI bleed 10/31/2021 Atrial fibrillation 10/25/19 22 documented as of this encounter (statuses as of 03/05/2023) [facility]2022 History of Past illness Narrative* Problem Noted Date Diagnosed Date Resolved Date Hypertensive emergency 10/28/202110/31 Right flank pain 10/28/2021 10/31/2021 RUQ pain 10/28/2021 10/31/2021 Chest pain 10/24/2021 10/31/2021 Gastrointestinal hemorrhage with melena 10/22/2021 10/26/2021 Diarrhea 02/28/2015 02/28/2015 GI bleed 10/31/2021 Atrial fibrillation 10/25/19 22 documented as of this encounter (statuses as of 03/05/2023) [facility]04[facility]2022 History of Past illness Narrative* Problem Noted Date Diagnosed Date Resolved Date Hypertensive emergency 10/28/202110/31 Right flank pain 10/28/2021 10/31/2021 RUQ pain 10/28/2021 10/31/2021 Chest pain 10/24/2021 10/31/2021 Gastrointestinal hemorrhage with melena 10/22/2021 10/26/2021 Diarrhea 02/28/2015 02/28/2015 GI bleed 10/31/2021 Atrial fibrillation 10/25/19 22 documented as of this encounter (statuses as of 03/11/2023) [facility]2022 History of Past illness Narrative* Problem Noted Date Diagnosed Date Resolved Date Hypertensive emergency 10/28/202110/31 Right flank pain 10/28/2021 10/31/2021 RUQ pain 10/28/2021 10/31/2021 Chest pain 10/24/2021 10/31/2021 Gastrointestinal hemorrhage with melena 10/22/2021 10/26/2021 Diarrhea 02/28/2015 02/28/2015 GI bleed 10/31/2021 Atrial fibrillation 10/25/19 22 documented as of this encounter (statuses as of 03/12/2023) [facility]2022 History of Past illness Narrative* Problem Noted Date Diagnosed Date Resolved Date Hypertensive emergency 10/28/202110/31 Right flank pain 10/28/2021 10/31/2021 RUQ pain 10/28/2021 10/31/2021 Chest pain 10/24/2021 10/31/2021 Gastrointestinal hemorrhage with melena 10/22/2021 10/26/2021 Diarrhea 02/28/2015 02/28/2015 GI bleed 10/31/2021 Atrial fibrillation 10/25/19 22 documented as of this encounter (statuses as of 03/12/2023) [facility]2022 History of Past illness Narrative* Problem Noted Date Diagnosed Date Resolved Date Hypertensive emergency 10/28/202110/31 Right flank pain 10/28/2021 10/31/2021 RUQ pain 10/28/2021 10/31/2021 Chest pain 10/24/2021 10/31/2021 Gastrointestinal hemorrhage with melena 10/22/2021 10/26/2021 Diarrhea 02/28/2015 02/28/2015 GI bleed 10/31/2021 Atrial fibrillation 10/25/19 22 documented as of this encounter (statuses as of 03/16/2023) [facility]2022 History of Past illness Narrative* Problem Noted Date Diagnosed Date Resolved Date Hypertensive emergency 10/28/202110/31 Right flank pain 10/28/2021 10/31/2021 RUQ pain 10/28/2021 10/31/2021 Chest pain 10/24/2021 10/31/2021 Gastrointestinal hemorrhage with melena 10/22/2021 10/26/2021 Diarrhea 02/28/2015 02/28/2015 GI bleed 10/31/2021 Atrial fibrillation 10/25/19 22 documented as of this encounter (statuses as of 03/18/2023) [facility]2022 History of Past illness Narrative* Problem Noted Date Diagnosed Date Resolved Date Hypertensive emergency 10/28/202110/31 Right flank pain 10/28/2021 10/31/2021 RUQ pain 10/28/2021 10/31/2021 Chest pain 10/24/2021 10/31/2021 Gastrointestinal hemorrhage with melena 10/22/2021 10/26/2021 Diarrhea 02/28/2015 02/28/2015 GI bleed 10/31/2021 Atrial fibrillation 10/25/19 22 documented as of this encounter (statuses as of 04/05/2023) [facility]2022 History of Past illness Narrative* Problem Noted Date Diagnosed Date Resolved Date Hypertensive emergency 10/28/202110/31 Right flank pain 10/28/2021 10/31/2021 RUQ pain 10/28/2021 10/31/2021 Chest pain 10/24/2021 10/31/2021 Gastrointestinal hemorrhage with melena 10/22/2021 10/26/2021 Diarrhea 02/28/2015 02/28/2015 GI bleed 10/31/2021 Atrial fibrillation 10/25/19 22 documented as of this encounter (statuses as of 06/12/2023) [facility]2022 History of Past illness Narrative* Problem Noted Date Diagnosed Date Resolved Date Hypertensive emergency 10/28/202110/31 Right flank pain 10/28/2021 10/31/2021 RUQ pain 10/28/2021 10/31/2021 Chest pain 10/24/2021 10/31/2021 Gastrointestinal hemorrhage with melena 10/22/2021 10/26/2021 Diarrhea 02/28/2015 02/28/2015 GI bleed 10/31/2021 Atrial fibrillation 10/25/19 22 documented as of this encounter (statuses as of 06/18/2023) [facility]2022 History of Past illness Narrative* Problem Noted Date Diagnosed Date Resolved Date Hypertensive emergency 10/28/202110/31 Right flank pain 10/28/2021 10/31/2021 RUQ pain 10/28/2021 10/31/2021 Chest pain 10/24/2021 10/31/2021 Gastrointestinal hemorrhage with melena 10/22/2021 10/26/2021 Diarrhea 02/28/2015 02/28/2015 GI bleed 10/31/2021 Atrial fibrillation 10/25/19 22 documented as of this encounter (statuses as of 06/25/2023) [facility]2022 History of Past illness Narrative* Problem Noted Date Diagnosed Date Resolved Date Hypertensive emergency 10/28/202110/31 Right flank pain 10/28/2021 10/31/2021 RUQ pain 10/28/2021 10/31/2021 Chest pain 10/24/2021 10/31/2021 Gastrointestinal hemorrhage with melena 10/22/2021 10/26/2021 Diarrhea 02/28/2015 02/28/2015 GI bleed 10/31/2021 Atrial fibrillation 10/25/19 22 documented as of this encounter (statuses as of 07/10/2023) [facility] History of Past illness Narrative* Problem Noted Date Diagnosed Date Resolved Date Hypertensive emergency 10/28/202110/31 Right flank pain 10/28/2021 10/31/2021 RUQ pain 10/28/2021 10/31/2021 Chest pain 10/24/2021 10/31/2021 Gastrointestinal hemorrhage with melena 10/22/2021 10/26/2021 Diarrhea 02/28/2015 02/28/2015 GI bleed 10/31/2021 Atrial fibrillation 10/25/19 22 documented as of this encounter (statuses as of 07/13/2023) [facility]20[facility] History of Past illness Narrative* Problem Noted Date Diagnosed Date Resolved Date Hypertensive emergency 10/28/202110/31 Right flank pain 10/28/2021 10/31/2021 RUQ pain 10/28/2021 10/31/2021 Chest pain 10/24/2021 10/31/2021 Gastrointestinal hemorrhage with melena 10/22/2021 10/26/2021 Diarrhea 02/28/2015 02/28/2015 GI bleed 10/31/2021 Atrial fibrillation 10/25/19 22 documented as of this encounter (statuses as of 07/21/2023) [facility] History of Past illness Narrative* Problem Noted Date Diagnosed Date Resolved Date Hypertensive emergency 10/28/202110/31 Right flank pain 10/28/2021 10/31/2021 RUQ pain 10/28/2021 10/31/2021 Chest pain 10/24/2021 10/31/2021 Gastrointestinal hemorrhage with melena 10/22/2021 10/26/2021 Diarrhea 02/28/2015 02/28/2015 GI bleed 10/31/2021 Atrial fibrillation 10/25/19 22 documented as of this encounter (statuses as of 07/22/2023) [facility] History of Past illness Narrative* Problem Noted Date Diagnosed Date Resolved Date Hypertensive emergency 10/28/202110/31 Right flank pain 10/28/2021 10/31/2021 RUQ pain 10/28/2021 10/31/2021 Chest pain 10/24/2021 10/31/2021 Gastrointestinal hemorrhage with melena 10/22/2021 10/26/2021 Diarrhea 02/28/2015 02/28/2015 GI bleed 10/31/2021 Atrial fibrillation 10/25/19 22 documented as of this encounter (statuses as of 07/28/2023) [facility] History of Past illness Narrative* Problem Noted Date Diagnosed Date Resolved Date Hypertensive emergency 10/28/202110/31 Right flank pain 10/28/2021 10/31/2021 RUQ pain 10/28/2021 10/31/2021 Chest pain 10/24/2021 10/31/2021 Gastrointestinal hemorrhage with melena 10/22/2021 10/26/2021 Diarrhea 02/28/2015 02/28/2015 GI bleed 10/31/2021 Atrial fibrillation 10/25/19 22 documented as of this encounter (statuses as of 08/06/2023) [facility] History of Past illness Narrative* Problem Noted Date Diagnosed Date Resolved Date Hypertensive emergency 10/28/202110/31 Right flank pain 10/28/2021 10/31/2021 RUQ pain 10/28/2021 10/31/2021 Chest pain 10/24/2021 10/31/2021 Gastrointestinal hemorrhage with melena 10/22/2021 10/26/2021 Diarrhea 02/28/2015 02/28/2015 GI bleed 10/31/2021 Atrial fibrillation 10/25/19 22 documented as of this encounter (statuses as of 08/12/2023) [facility] History of Past illness Narrative* Problem Noted Date Diagnosed Date Resolved Date Hypertensive emergency 10/28/202110/31 Right flank pain 10/28/2021 10/31/2021 RUQ pain 10/28/2021 10/31/2021 Chest pain 10/24/2021 10/31/2021 Gastrointestinal hemorrhage with melena 10/22/2021 10/26/2021 Diarrhea 02/28/2015 02/28/2015 GI bleed 10/31/2021 Atrial fibrillation 10/25/19 22 documented as of this encounter (statuses as of 08/12/2023) [facility] History of Past illness Narrative* Problem Noted Date Diagnosed Date Resolved Date Hypertensive emergency 10/28/202110/31 Right flank pain 10/28/2021 10/31/2021 RUQ pain 10/28/2021 10/31/2021 Chest pain 10/24/2021 10/31/2021 Gastrointestinal hemorrhage with melena 10/22/2021 10/26/2021 Diarrhea 02/28/2015 02/28/2015 GI bleed 10/31/2021 Atrial fibrillation 10/25/19 22 documented as of this encounter (statuses as of 08/13/2023) [facility]22 Miscellaneous Notes* Telephone Encounter - Maribell Cunha RN - 10/04/2021 8:54 AM EDT Called patient, no answer. Message left on identified VM indicating ok to stop Aubagio 1 week priorto Kesimpta FDO and to notify office if there is any issue obtaining a ride to the office on 10-22-21, as she then might need to have Aubagio refilled again if Kesimpta FDO has to be scheduled out further. Maribell Cunha RN * Telephone Encounter - Bill Woods PA-C - 10/03/2021 2:11 PM EDT Okay if she stops Aubagio 1 week prior to Kesimpta FDO. Bill Woods PA-C * Telephone Encounter - Maribell Cunha RN - 10/03/2021 1:04 PM EDT Called patient, verified name and . Patient received first three doses of Kesimpta back in March and has kept in her refrigerator. She has approximately 2 weeks of Aubagio remaining and is scheduled for Kesimpta FDO 10-22-21. Routing to Bill Woods PA-C. Maribell Cunha RN documented in this encounter[facility] Miscellaneous Notes* Telephone Encounter - Maribell Cunha RN - 09/12/2021 8:24 AM EDT Called Gloria with [facility]. Notified of message from Bill Woods PA-C that it is ok to take Modafinil PRN. She verbalized understanding and will contact office for any other needs or concerns. Maribell Cunha RN * Telephone Encounter - Bill Woods PA-C - 09/11/2021 5:54 PM EDT Okay to take modafinil PRN. No need to take every day if she doesn t want to. Bill * Telephone Encounter - Maribell Cunha RN - 09/11/2021 4:47 PM EDT Called patient, verified name and . Patient states she doesn't always take Modafinil every day. She recently knocked her pill bottle over by the sink and some tablets were lost because there was dish water in the sink, so when they were counted she was short some medication. 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 She doesn't have any questions or needs at this time. Maribell Cunha RN * Telephone Encounter - Maribell Cunha RN - 09/11/2021 3:54 PM EDT Called patient at mobile number, no answer. Message left for patient to return call to office when able. Maribell Cunha RN * Telephone Encounter - Tiffanie Cline - 09/11/2021 2:35 PM EDT Ramin Call Name of caller : Juliet CastroFare Enforcement OfficerFire Officer to patient: [facility] Return call phone number : [phone] Reason for call : Medication : Name : Modafinil Questions/concern : Juliet Castro Mgr. is calling because she was [facility] today and [facility] and patient states does not take it every day, takes its PRN and wondering if that should change to like it says, 1 a day. Please call to discuss further. PHARMACY name : N/A documented in this encounterOur [facility] Hospital Discharge instructions Patient Education 06/15/2021 21:02:05 Diabetes and Heart Disease Diabetes and Heart Disease If you have diabetes, you are 2 to 4 times more likely to have heart disease than someone without diabetes. And you are likely to get it at a younger age. This higher risk is because of diabetes. Butit's also because of other risk factors for heart disease that happen in people with diabetes. But there s good news. You can help control your health risks by making some changes in your life. You can take steps to cut your risk for heart disease by half. This is similar to the risk in people who don't have diabetes. Your main risk factors Three major risk factors for heart disease are high blood sugar, high blood pressure, and high levels of fat in the blood (lipids). By controlling these things, you can help keep your heart and arteries healthy. This may cut your chances of a heart attack. Blood sugar. High blood sugar can make artery [place] tough and rough. Plaque is waxy material in theblood. It can then build up along the artery [place]. This makes it harder for blood to flow through the arteries. High blood sugar also raises the chances of having high blood pressure and high cholesterol. Blood pressure. When blood pressure is high all the time, it causes your heart to work harder to pump blood. Artery [place] become damaged. This makes it more likely for plaque to build up. Lipids. Your body needs some blood fats (lipids) to stay healthy. But lipid levels that are too high can harm artery [place]. Lipids include cholesterol and triglycerides. There are two kinds of cholesterol. LDL ( bad ) cholesterol can damage the arteries. But HDL ( good ) cholesterol helps clear LDLfrom the blood vessels. This helps keep the arteries healthy. When blood sugar is high, the level of triglycerides in the blood may also be high. This can also cause plaque to form. Other risk factors Certain lifestyle factors can raise levels of your blood sugar, blood pressure, and lipids. Higher levels raise your risk for heart disease: Smoking. Smoking damages the lining of your arteries. This allows plaque to build up in the artery [place]. It also narrows the arteries. This can raise blood pressure and cause chest pain (angina). Smoking also raises your risk of getting type 2 diabetes. Not being active. Not being active makes it harder for your heart to do its work. Inactivity is linked to many other problems, such as high blood pressure and high cholesterol levels. Inactivity alsoincreases your risk of getting type 2 diabetes. Being overweight. Being overweight makes it harder for your body to use insulin. It also makes yourheart work too hard. Being overweight is also the main thing leading to type 2 diabetes, Changes you can make The simple steps below can help keep your risk factors under control. Work with your healthcare team to reach your goals. Quit smoking. Quitting smoking could save your life. Smoking harms the lining of the blood vessels and raises blood pressure. It also affects how your body uses insulin. This makes it harder to keep blood sugar under control. If you smoke and need help quitting, talk with your healthcare team. Test your blood sugar. Checking your blood sugar is the only way to know if it's under control. Test your blood sugar yourself. Also get your it tested in the lab, as directed. Check your blood pressure and lipids. Monitoring your blood pressure and lipid levels can help you stay at safe levels. Visit your healthcare team as scheduled. Take medicines as directed. This can help control blood sugar, blood pressure, blood clotting, and cholesterol levels. Eat healthy. Eating right can cut your risk factors and help you lose weight. Try to limit the amount of processed or refined carbohydrates you eat at one time. Cut back on your total calories. Eat foods low in saturated fat and cholesterol. Eat fiber, including vegetables and whole grains, and cutdown on salt. A dietitian or parent educator can help make a meal plan that works for you even ifyou are on a limited budget. Limit alcohol. Drinking alcohol even in low or moderate amounts can increase your body's sensitivity to insulin. Be active. can help reduce your weight, strengthen your heart, and lower your lipid levels and blood pressure. Exercise and activity are good for your whole body. Talk to your healthcare team about increasing your activity safely over time. Keep your appointments. with your healthcare provider helps you stay healthy. Go in for checkups and lab tests as scheduled. [id number] [employer]. [address] [place] [address], [place] [address]. All rights reserved. This information is not intended as a substitute for professional medical care. Always follow yourhealthcare professional's instructions. Follow Up Care 06/15/2021 19:52:40 With:[facility] Address: [phone] When:2-4 days [facility] 11-04-2015 History of Past illness Narrative* Problem Noted Date Resolved Date Diarrhea 02/28/2015 02/28/2015 documented as of this encounter (statuses as of 08/09/2021) [facility] of Past illness Narrative* Problem Noted Date Resolved Date Diarrhea 02/28/2015 02/28/2015 documented as of this encounter (statuses as of 09/12/2021) [facility] of Past illness Narrative* Problem Noted Date Resolved Date Diarrhea 02/28/2015 02/28/2015 documented as of this encounter (statuses as of 10/04/2021) [facility] No data available for this section [facility] Evaluation note* Diagnosis Onset Date Resolution Status Mural thrombus of heart acut e Atherosclerotic heart diseas e of [place] coronary artery without angina pectoris chronic Essential (primary) hypertension chronic Hyperlipemia chronic Ischemic cardiomyopathy 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[place] Paroxysmal atrial fibrillation chronic Chest pain resolved Anemia chronic Chronic neck pain with histo ry of cervical spinal surgery chronic Essential (primary) hypertension chronic Hyperkalemia acute BRYAN (obstructive sleep apnea) chronic Osteoporosis chronic Type 2 diabetes mellitus chr [facility] Work Phone: Evaluation note* Diagnosis Onset Date Resolution Status Chest pain resolved Anemia chronic Chronic neck pain with histo ry of cervical spinal surgery chronic Essential (primary) hypertension chronic Hyperkalemia acute BRYAN (obstructive sleep apnea) chronic Osteoporosis chronic Type 2 diabetes mellitus chr onic BRYAN (obstructive sleep apnea) [facility] Work Phone: Evaluation note* Diagnosis Onset Date Resolution Status Anemia chronic Chronic neck pain with histo ry of cervical spinal surgery chronic Essential (primary) hypertension chronic Hyperkalemia acute BRYAN (obstructive sleep apnea) chronic Type 2 diabetes mellitus chr onic BRYAN (obstructive sleep apnea) chronic BRYAN (obstructive sleep apnea) chronic [facility] Work Phone: Evaluation note* Diagnosis MS (multiple sclerosis) (HCC)- Primary [facility] Diagnosis Onset Date Resolution Status BRYAN (obstructive sleep apnea) chronic BRYAN (obstructive sleep apnea) chronic Essential (primary) hypertension chronic Paroxysmal atrial fibrillation chronic Type 2 diabetes mellitus chr onic Acute UTI acute Near syncope acute Sepsis acute [facility] Work Phone: Evaluation note* Diagnosis Onset Date Resolution Status BRYAN (obstructive sleep apnea) chronic BRYAN (obstructive sleep apnea) chronic Essential (primary) hypertension chronic Paroxysmal atrial fibrillation chronic Type 2 diabetes mellitus chr onic Acute UTI acute Near syncope acute Sepsis acute Chronic neck pain with histo ry of cervical spinal surgery chronic [facility] Work Phone: Evaluation note* Diagnosis Onset Date Resolution Status Essential (primary) hypertension chronic Paroxysmal atrial fibrillation chronic Type 2 diabetes mellitus chr onic Chronic neck pain with histo ry of cervical spinal surgery chronic Near syncope resolved Syncope acute Chronic systolic (congestive) heart failure chronic Essential (primary) hypertension chronic Type 2 diabetes mellitus chr onic Osteoporosis chronic Atherosclerotic heart diseas e of [place] coronary artery without angina pectoris chronic Essential (primary) hypertension chronic Hyperlipemia chronic Ischemic cardiomyopathy 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[place] Mural thrombus of heart 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[place] Paroxysmal atrial fibrillation chronic [facility] Work Phone: Evaluation note* Diagnosis Multiple sclerosis (HCC)- Primary [facility] sclerosis [facility] Diagnosis Onset Date Resolution Status Syncope acute Chronic systolic (congestive) heart failure chronic Essential (primary) hypertension chronic Type 2 diabetes mellitus chr onic Osteoporosis chronic Atherosclerotic heart diseas e of [place] coronary artery without angina pectoris chronic Essential (primary) hypertension chronic Hyperlipemia chronic Ischemic cardiomyopathy 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[place] Mural thrombus of heart 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[place] Paroxysmal atrial fibrillation chronic Anxiety and depression chron ic Chronic systolic (congestive) heart failure chronic CKD (chronic kidney disease) stage 3, GFR 30-59 ml/min chronic Type 2 diabetes mellitus chr onic [facility] Work Phone: Evaluation note* Diagnosis MS (multiple sclerosis) (HCC)- Primary Multiple sclerosis documented in this encounter [facility] note* Diagnosis Multiple sclerosis (HCC)- Primary Multiple sclerosis [facility] Diagnosis Type 2 diabetes mellitus with other specified complication, without long-term current use of insulin (HCC)- [facility] ([facility])- Primary [facility] Diagnosis Type 2 diabetes mellitus with other specified complication, without long-term current use of insulin (HCC) [facility] Diagnosis Multiple sclerosis (HCC)- Primary Multiple sclerosis DDD (degenerative disc disease), thoracic Degeneration of thoracic or thoracolumbar intervertebral disc [facility] Diagnosis Multiple sclerosis (HCC)- Primary [facility] sclerosis [facility] Diagnosis DDD (degenerative disc disease), thoracic- Primary Degeneration of thoracic or thoracolumbar intervertebral disc Multiple sclerosis (HCC) [facility] Diagnosis Chronic pain of left knee- Primary Pain in joint, lower leg History of torn meniscus of left knee Personal history of other musculoskeletal disorders History of medial meniscus repair of left knee Congenital retroversion of both femurs MS (multiple sclerosis) (HCC) Multiple sclerosis Current smoker Tobacco use disorder Current use of prison anticoagulation Long-term (current) use of anticoagulants [facility] Diagnosis Multiple sclerosis (HCC)- Primary [facility] sclerosis [facility] Diagnosis Multiple [facility] (HCC)- Primary [facility] Diagnosis Sleep apnea, unspecified type- Primary Multiple sclerosis (HCC) Multiple sclerosis Dysarthria [facility] Diagnosis Other chronic pain- Primary MS (multiple sclerosis) (HCC) Multiple sclerosis Paroxysmal A-fib (HCC) Atrial fibrillation Tobacco dependence Tobacco use disorder BMI 28.0-28.9,adult Body Mass Index 28.0-28.9, adult Personal history of spine surgery Other postprocedural status H/O insulin dependent diabetes mellitus Personal history of other endocrine, metabolic, and immunity disorders [facility] Diagnosis Multiple [facility] (HCC)- Primary [facility] Diagnosis BRYAN (obstructive sleep apnea)- Primary Obstructive sleep apnea (adult) (pediatric) [facility] Diagnosis Malaise and fatigue- Primary Other malaise and fatigue Lesion of skin of face Unspecified disorder of skin and subcutaneous tissue Skin sore Unspecified disorder of skin and subcutaneous tissue Multiple sclerosis (HCC) [facility] Diagnosis Multiple sclerosis (HCC)- Primary [facility] sclerosis [facility] Diagnosis Postural kyphosis of thoracic region- Primary Kyphosis (acquired) (postural) 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 Cervical vertebral fusion Other unspecified back disorder S/P lumbar fusion Arthrodesis status [facility]* Diagnosis Obstructive sleep apnea- Primary Obstructive sleep apnea (adult) (pediatric) Insomnia, unspecified type RLS (restless legs syndrome) Restless legs syndrome (RLS) Hypersomnia due to medical condition Hypersomnia due to medical condition classified elsewhere [facility] Diagnosis Folliculitis- Primary Other specified disease of hair and hair follicles [facility] Diagnosis Other chronic pain [facility]* Diagnosis 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)- Primary [facility]* Diagnosis Multiple sclerosis (HCC)- Primary Multiple sclerosis [facility]* Diagnosis Controlled type 2 diabetes mellitus without complication, 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)- Primary [facility]* Diagnosis Folliculitis- Primary Other specified disease of hair and hair follicles [facility]* Diagnosis Controlled type 2 diabetes mellitus without complication, 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)- Primary [facility]* Diagnosis Multiple sclerosis (HCC) Multiple sclerosis [facility]* Diagnosis Chronic fatigue Other malaise and fatigue [facility]* Diagnosis Myofascial pain- Primary Mylagia and myositis, unspecified Myofascial neck pain Tight unbalanced muscles Unspecified disorder of muscle, ligament, and fascia Other chronic pain History of fusion of cervical spine Arthrodesis status MS (multiple sclerosis) (HCC) Multiple sclerosis Current smoker Tobacco use disorder Chronic anticoagulation Long-term (current) use of anticoagulants BMI 26.0-26.9,adult Body Mass Index 26.0-26.9, adult [facility] Diagnosis Multiple sclerosis (HCC)- Primary Multiple sclerosis [facility]* Diagnosis Myofascial pain- Primary Mylagia and myositis, unspecified Current smoker Tobacco use disorder Other kyphosis of thoracic region Abnormal posture Abnormal increased muscle tightness Spasm of muscle Tobacco dependence Tobacco use disorder Anxiety and depression Dysthymic disorder [facility]* Diagnosis Myofascial pain syndrome of lumbar spine- Primary Other chronic pain MS (multiple sclerosis) (HCC) Multiple sclerosis Type 2 diabetes mellitus with other specified complication, without long-term current use of insulin (HCC) Myofascial pain Mylagia and myositis, unspecified Lumbar pain Lumbago Abnormal posture Neck pain, chronic Cervicalgia Thoracic spine pain Pain in thoracic spine Other kyphosis of thoracic region BMI 30.0-30.9,adult Body Mass Index 30.0-30.9, adult [facility] Diagnosis Multiple sclerosis (HCC)- Primary Multiple sclerosis [facility]* Diagnosis Multiple sclerosis (HCC)- Primary Multiple sclerosis [facility]* Diagnosis Chronic midline low back pain without sciatica Multiple sclerosis (HCC) Multiple sclerosis [facility]* Diagnosis MS (multiple sclerosis) (HCC)- Primary Multiple sclerosis Paroxysmal A-fib (HCC) Atrial fibrillation Myofascial pain syndrome Mylagia and myositis, unspecified Myofascial pain syndrome of lumbar spine Myofascial pain syndrome, cervical Mylagia and myositis, unspecified Myofascial pain Mylagia and myositis, unspecified Current smoker Tobacco use disorder Lumbar back pain Lumbago Type 2 diabetes mellitus with other specified complication, without long-term current use of insulin (HCC)- Primary [facility]* Diagnosis Multiple sclerosis (HCC)- Primary Multiple sclerosis Dysarthria Type 2 diabetes mellitus with other specified complication, without long-term current use of insulin (HCC)- Primary [facility]* Diagnosis Multiple sclerosis (HCC)- Primary [facility] sclerosis [facility] Diagnosis Type 2 diabetes mellitus with other specified complication, without long-term current use of insulin (HCC)- Primary [facility] Diagnosis Multiple sclerosis (HCC)- Primary Multiple sclerosis [facility]* Diagnosis Chronic fatigue Other malaise and fatigue [facility] Diagnosis Thoracic myelopathy- Primary Spondylosis with myelopathy, thoracic region History of multiple sclerosis (HCC) Personal history of other disorders of nervous system and sense organs Spinal stenosis of lumbar region with neurogenic claudication Spinal stenosis, lumbar region, with neurogenic claudication Lumbar foraminal stenosis Spinal stenosis, lumbar region, without neurogenic claudication [facility] Diagnosis Thoracic myelopathy Spondylosis with myelopathy, thoracic region History of multiple sclerosis (HCC) Personal history of other disorders of nervous system and sense organs [facility] Diagnosis Thoracic myelopathy Spondylosis with myelopathy, thoracic region History of multiple sclerosis (HCC) Personal history of other disorders of nervous system and sense organs [facility] Diagnosis Myofascial pain- Primary Mylagia and myositis, unspecified Other chronic pain Neck pain, chronic Cervicalgia Myofascial pain syndrome of lumbar spine MS (multiple sclerosis) (HCC) Multiple sclerosis Myofascial pain syndrome Mylagia and myositis, unspecified Elevated hemoglobin A1c Other abnormal blood chemistry Current smoker Tobacco use disorder [facility] Diagnosis 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) Malaise and fatigue Other malaise and fatigue Multiple sclerosis (HCC) Multiple sclerosis [facility] Diagnosis 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)- Primary Malaise and fatigue Other malaise and fatigue Multiple sclerosis (HCC) Multiple sclerosis [facility] Diagnosis Irritant dermatitis- Primary Contact dermatitis and other eczema, due to unspecified cause Prurigo nodularis Lichenification and lichen simplex chronicus Inflamed seborrheic keratosis [facility]* Diagnosis Thoracic myelopathy- Primary Spondylosis with myelopathy, thoracic region [facility]* Diagnosis MS (multiple sclerosis) (HCC)- Primary Multiple sclerosis Optic nerve atrophy, bilateral Optic atrophy, unspecified Vitreous degeneration of both eyes Vitreous degeneration Pseudophakia Lens replaced by other means Refractive error Unspecified disorder of refraction and accommodation Presbyopia Nonexudative age-related macular degeneration, bilateral, early dry stage [facility]* Diagnosis Type 2 diabetes mellitus with other specified complication, without long-term current use of insulin (HCC) 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) Malaise and fatigue Other malaise and fatigue [facility]* Diagnosis 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 Inflamed seborrheic keratosis [facility]* Diagnosis Spinal stenosis of lumbar region with neurogenic claudication- Primary Spinal stenosis, lumbar region, with neurogenic claudication Thoracic myelopathy Spondylosis with myelopathy, thoracic region [facility]* Diagnosis Multiple sclerosis (HCC)- Primary Multiple sclerosis [facility]* Diagnosis Thoracic myelopathy Spondylosis with myelopathy, thoracic region Spinal stenosis of lumbar region with neurogenic claudication Spinal stenosis, lumbar region, with neurogenic claudication [facility]* Diagnosis MS (multiple sclerosis) (HCC)- Primary Multiple sclerosis Myofascial pain syndrome Mylagia and myositis, unspecified Tobacco dependence Tobacco use disorder Neck pain Cervicalgia Lumbar pain Lumbago Myofascial pain syndrome of lumbar spine Myofascial pain syndrome, cervical Mylagia and myositis, unspecified Other chronic pain Neck pain, chronic Cervicalgia Encounter for long-term (current) use of medications Encounter for long-term (current) use of other medications [facility] Diagnosis Spinal stenosis of thoracic region- Primary Spinal stenosis, lumbar region with neurogenic claudication Intervertebral thoracic disc disorder with myelopathy, thoracic region [facility]* Diagnosis Multiple sclerosis (HCC)- Primary Multiple sclerosis [facility]* Diagnosis 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- Primary Spondylosis with myelopathy, thoracic region Spinal stenosis of lumbar region with neurogenic claudication Spinal stenosis, lumbar region, with neurogenic claudication Spasticity Abnormal involuntary movements Spinal stenosis of thoracic region Spinal stenosis, lumbar region, with neurogenic claudication Intervertebral thoracic disc disorder with myelopathy, thoracic region [facility]* Diagnosis Preop testing- Primary Preoperative examination, unspecified Spinal stenosis of thoracic region Spinal stenosis, lumbar region, with neurogenic claudication Intervertebral thoracic disc disorder with myelopathy, thoracic region Chronic congestive heart failure, unspecified heart failure type (HCC) Chronic obstructive pulmonary disease, unspecified COPD type (HCC) Gastroesophageal reflux disease without esophagitis Esophageal reflux Renal insufficiency Unspecified disorder of kidney and ureter Multiple excoriations Other and unspecified superficial injury of other, multiple, and unspecified sites, without mention of infection Type 2 diabetes mellitus with other circulatory complication, with long-term current use of insulin (HCC) Spinal stenosis of thoracic region Spinal stenosis, lumbar region, with neurogenic claudication Intervertebral thoracic disc disorder with myelopathy, thoracic region [facility]* Diagnosis S/P lumbar fusion Arthrodesis status Cervical vertebral fusion Other unspecified back disorder Postural kyphosis of thoracic region Kyphosis (acquired) (postural) Spinal stenosis of thoracic region Spinal stenosis, lumbar region, with neurogenic claudication Intervertebral thoracic disc disorder with myelopathy, thoracic region [facility]* Diagnosis Multiple sclerosis (HCC) Multiple sclerosis Spinal stenosis of thoracic region Spinal stenosis, lumbar region, with neurogenic claudication Intervertebral thoracic disc disorder with myelopathy, thoracic region [facility]* Diagnosis Spinal stenosis, multiple sites in spine Spinal stenosis, other region [facility]* Diagnosis S/P lumbar laminectomy- Primary Other postprocedural status [facility]* Diagnosis Chronic fatigue Other malaise and fatigue [facility]* Diagnosis Spinal stenosis, multiple sites in spine- Primary Spinal stenosis, other region [facility]* Diagnosis Spinal stenosis, multiple sites in spine Spinal stenosis, other region [facility]* Diagnosis S/P lumbar laminectomy Other postprocedural status [facility]* Diagnosis Spinal stenosis, multiple sites in spine- Primary Spinal stenosis, other region Wound infection after surgery Other postoperative infection Controlled type 2 diabetes mellitus without complication, 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 ([facility])- Primary [facility]* Diagnosis Controlled type 2 diabetes mellitus without complication, unspecified whether prison insulin use (HCC)- Primary [facility] Diagnosis 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 Carrier or suspected carrier of Methicillin resistant Staphylococcus aureus [facility] Diagnosis Multiple sclerosis (HCC)- Primary Multiple sclerosis [facility]* Diagnosis Spinal stenosis, multiple sites in spine- Primary Spinal stenosis, other region [facility] Diagnosis Spinal stenosis, multiple sites in spine- Primary Spinal stenosis, other region [facility] Diagnosis S/P lumbar laminectomy Other postprocedural status [facility]* Diagnosis Spinal stenosis, multiple sites in spine Spinal stenosis, other region [facility]* Diagnosis Spinal stenosis, multiple sites in spine Spinal stenosis, other region [facility]* Diagnosis Thoracic myelopathy- Primary Spondylosis with myelopathy, thoracic region H/O laminectomy Other postprocedural status Spasticity Abnormal involuntary movements Impairment of balance Abnormality of gait [facility]* Diagnosis Spinal stenosis, multiple sites in spine Spinal stenosis, other region [facility]* Diagnosis Encounter for long-term (current) use of medications- Primary Encounter for long-term (current) use of other medications Chronic, continuous use of opioids Opioid type dependence, continuous Chronic pain syndrome Other chronic pain Neck pain, chronic Cervicalgia Current smoker Tobacco use disorder History of recent stressful life event [facility] Diagnosis MS (multiple sclerosis) (HCC)- Primary Multiple sclerosis Optic nerve atrophy, bilateral Optic atrophy, unspecified Nonexudative age-related macular degeneration, bilateral, early dry stage Vitreous degeneration of both eyes Vitreous degeneration Pseudophakia Lens replaced by other means Refractive error Unspecified disorder of refraction and accommodation Presbyopia [facility]* Diagnosis Controlled type 2 diabetes mellitus without complication, unspecified whether prison insulin use (HCC)- Primary [facility] Diagnosis Multiple sclerosis (HCC)- Primary Multiple sclerosis Memory impairment Memory loss Dysarthria Urinary frequency [facility] Diagnosis Multiple sclerosis (HCC)- Primary Multiple sclerosis [facility] Diagnosis Chronic fatigue Other malaise and fatigue [facility] Diagnosis S/P lumbar laminectomy Other postprocedural status [facility]* Diagnosis Cervical myelopathy (HCC)- Primary Cervical spondylosis with myelopathy History of laminectomy Other postprocedural status Sacroiliac joint pain Disorders of sacrum Oth deforming dorsopathies, sacral and sacrococcygeal region [facility] Diagnosis Postprocedural state Other postprocedural status [facility] Diagnosis Chronic fatigue Other malaise and fatigue [facility]* Diagnosis Multiple sclerosis (HCC) Multiple sclerosis [facility] Diagnosis Multiple sclerosis (HCC) Multiple sclerosis [facility] Diagnosis Multiple sclerosis (HCC)- Primary Multiple sclerosis Sacroiliitis Sacroiliitis, not elsewhere classified Chronic right sacroiliac joint pain Disorders of sacrum [facility] Diagnosis 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 Folliculitis Other specified disease of hair and hair follicles Sacroiliitis Sacroiliitis, not elsewhere classified Chronic right sacroiliac joint pain Disorders of sacrum [facility]* Diagnosis Controlled type 2 diabetes mellitus without complication, 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) [facility] Diagnosis Controlled type 2 diabetes mellitus without complication, 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)- Primary [facility] Diagnosis MS (multiple sclerosis) (HCC)- Primary Multiple sclerosis Optic nerve atrophy, bilateral Optic atrophy, unspecified RPE mottling of macula Other retinal disorders Vitreous degeneration of both eyes Vitreous degeneration Pseudophakia Lens replaced by other means Refractive error Unspecified disorder of refraction and accommodation Presbyopia Dry eye syndrome of bilateral lacrimal glands Tear film insufficiency, unspecified Type 2 diabetes mellitus without retinopathy (HCC) Type II or unspecified type diabetes mellitus without mention of complication, not stated as uncontrolled [facility] Diagnosis Multiple sclerosis (HCC)- Primary Multiple sclerosis [facility] Diagnosis Inflamed seborrheic keratosis- Primary Prurigo nodularis Lichenification and lichen simplex chronicus [facility] Diagnosis Muscle spasm- Primary Spasm of muscle Nicotine dependence, cigarettes, uncomplicated Postprocedural state Other postprocedural status Spinal stenosis, multiple sites in spine Spinal stenosis, other region [facility]* Diagnosis Low back pain, unspecified back pain laterality, unspecified chronicity, unspecified whether sciatica present [facility] Diagnosis Controlled type 2 diabetes mellitus without complication, unspecified whether prison insulin use (HCC)- Primary [facility] Diagnosis Other chronic pain Neck pain, chronic Cervicalgia Chronic right sacroiliac joint pain Disorders of sacrum Sacroiliitis Sacroiliitis, not elsewhere classified [facility] Diagnosis Multiple sclerosis (HCC)- Primary Multiple sclerosis Chronic right sacroiliac joint pain Disorders of sacrum Sacroiliitis Sacroiliitis, not elsewhere classified [facility] Additional Instructions You have a UTI. Take the antibiotics and follow up with your doctor next week. If symptoms worsen return to the emergency room.[facility] Work Phone: Hospital Discharge instructions Additional Instructions Your test tonight were unremarkable. Do not have a specific cause for your pain. Call and follow-up with your primary care physician. Return if worse.[facility] Work Phone: Reason for referral (narrative)* Diagnostic Procedure Only (Routine) - Closed Specialty Diagnoses / Procedures Referred By Contac t Referred To Contact XR IMAGING Diagnoses Chronic pain of left knee History of torn meniscus of left knee History of medial meniscus repair of left knee Procedures XR KNEE GENERAL 4V AP BOTH/PA BOTH/LAT/MERC BILATERAL RADIOLOGIC EXAM KNEE COMPLETE 4/MORE VIEWS Heather Davis MD [address] [facility] [address] [address] Xr Imaging Referral ID Status Reason Start Date Expiration Date V isits Requested Visits Authorized [id number] Closed Auto-Generate d Referral 11/04/2022 12/04/2023 1 1 [facility] for referral (narrative)* Diagnostic Procedure Only (Routine) - Closed Specialty Diagnoses / Procedures Referred By Contac t Referred To Contact XR IMAGING Diagnoses Postural kyphosis of thoracic region Procedures XR THORACIC GENERAL 3V AP/LAT/SWIMMERS RADEX SPINE THORACIC 3 VIEWS Meka Webb MD [address] [phone] [place] [address] Referral ID Status Reason Start Date Expiration Date V isits Requested Visits Authorized [id number] Closed Auto-Generate d Referral 01/15/2023 02/14/2024 1 1 * Diagnostic Procedure Only (Routine) - Closed Specialty Diagnoses / Procedures Referred By Contac t Referred To Contact XR IMAGING Diagnoses Cervical vertebral fusion Procedures XR CERVICAL 2V FLEX/EXT RADEX SPINE CERVICAL 2 OR 3 VIEWS Meka Webb MD [address] [place] [address] Xr Imaging [facility]95 Referral ID Status Reason Start Date Expiration Date V isits Requested Visits Authorized [id number] Closed Auto-Generate d Referral 01/15/2023 02/14/2024 1 1 * Diagnostic Procedure Only (Routine) - Closed Specialty Diagnoses / Procedures Referred By Contac t Referred To Contact XR IMAGING Diagnoses Cervical vertebral fusion Procedures XR CERV OTHER 4V AP/LAT/OBL RADEX SPINE CERVICAL 4 OR 5 VIEWS Meka Webb MD [address] [place] [address] Xr Imaging [facility]95 Referral ID Status Reason Start Date Expiration Date V isits Requested Visits Authorized [id number] Closed Auto-Generate d Referral 01/15/2023 02/14/2024 1 1 * Diagnostic Procedure Only (Routine) - Closed Specialty Diagnoses / Procedures Referred By Contac t Referred To Contact XR IMAGING Diagnoses S/P lumbar fusion Procedures XR LUMBAR MOTION 4V AP/LAT/ FLEX/EXT RADEX SPINE LUMBOSACRAL MINIMUM 4 VIEWS Meka Webb MD [address] [place] [address] [place] [address] Referral ID Status Reason Start Date Expiration Date V isits Requested Visits Authorized [id number] Closed Auto-Generate d Referral 01/15/2023 02/14/2024 1 1 [facility] for referral (narrative)* Diagnostic Procedure Only (Routine) - Closed Specialty Diagnoses / Procedures Referred By Contac t Referred To Contact XR IMAGING Diagnoses Postural kyphosis of thoracic region Procedures XR THORACIC GENERAL 3V AP/LAT/SWIMMERS RADEX SPINE THORACIC 3 VIEWS Meka Webb MD [address] [phone] [place] [address] Referral ID Status Reason Start Date Expiration Date V isits Requested Visits Authorized [id number] Closed Auto-Generate d Referral 01/15/2023 02/14/2024 1 1 * Diagnostic Procedure Only (Routine) - Closed Specialty Diagnoses / Procedures Referred By Contac t Referred To Contact XR IMAGING Diagnoses Cervical vertebral fusion Procedures XR CERVICAL 2V FLEX/EXT RADEX SPINE CERVICAL 2 OR 3 VIEWS Meka Webb MD [address] [place] [address] [place] [address] Referral ID Status Reason Start Date Expiration Date V isits Requested Visits Authorized [id number] Closed Auto-Generate d Referral 01/15/2023 02/14/2024 1 1 * Diagnostic Procedure Only (Routine) - Closed Specialty Diagnoses / Procedures Referred By Contac t Referred To Contact XR IMAGING Diagnoses Cervical vertebral fusion Procedures XR CERV OTHER 4V AP/LAT/OBL RADEX SPINE CERVICAL 4 OR 5 VIEWS Meka Webb MD [address] [phone] [place] [address] Referral ID Status Reason Start Date Expiration Date V isits Requested Visits Authorized [id number] Closed Auto-Generate d Referral 01/15/2023 02/14/2024 1 1 * Diagnostic Procedure Only (Routine) - Closed Specialty Diagnoses / Procedures Referred By Contac t Referred To Contact XR IMAGING Diagnoses S/P lumbar fusion Procedures XR LUMBAR MOTION 4V AP/LAT/ FLEX/EXT RADEX SPINE LUMBOSACRAL MINIMUM 4 VIEWS Meka Webb MD [address] [place] [address] Xr Imaging [place] [address] Referral ID Status Reason Start Date Expiration Date V isits Requested Visits Authorized [id number] Closed Auto-Generate d Referral 01/15/2023 02/14/2024 1 1 [facility] for referral (narrative)* Diagnostic Procedure Only (Routine) - New Request Specialty Diagnoses / Procedures Referred By Contac t Referred To Contact XR IMAGING Diagnoses S/P lumbar laminectomy Procedures XR LUMBAR LIMITED 2V AP/LAT RADEX SPINE LUMBOSACRAL 2/3 VIEWS Chloe Mackenzie MD [address] [facility] [address] [place] [address] [place] [address] Referral ID Status Reason Start Date Expiration Date Visits Requested Visits Authorized [id number] New Request Auto-Generat ed Referral 02/24/2025 1 1 [facility] for visit Narrative* Diagnostic Procedure Only (Routine) - Closed Specialty Diagnoses / Procedures Referred By Contac t Referred To Contact XR IMAGING Diagnoses Thoracic myelopathy History of multiple sclerosis (HCC) Procedures XR THORACIC GENERAL 3V AP/LAT/SWIMMERS RADEX SPINE THORACIC 3 VIEWS Meka Webb MD [address] [place] [address] [place] [address] Referral ID Status Reason Start Date Expiration Date V isits Requested Visits Authorized [id number] Closed Auto-Generate d Referral 09/15/2023 10/14/2024 1 1 [facility] for visit Narrative* Diagnostic Procedure Only (Routine) - Closed Specialty Diagnoses / Procedures Referred By Contac t Referred To Contact XR IMAGING Diagnoses Postural kyphosis of thoracic region Procedures XR THORACIC GENERAL 3V AP/LAT/SWIMMERS RADEX SPINE THORACIC 3 VIEWS Meka Webb MD [address] [phone] [place] [address] Referral ID Status Reason Start Date Expiration Date V isits Requested Visits Authorized [id number] Closed Auto-Generate d Referral 01/15/2023 02/14/2024 1 1 [facility] for visit Narrative* Diagnostic Procedure Only (Routine) - Closed Specialty Diagnoses / Procedures Referred By Contac t Referred To Contact XR IMAGING Diagnoses S/P lumbar laminectomy Procedures XR LUMBAR LIMITED 2V AP/LAT RADEX SPINE LUMBOSACRAL 2/3 VIEWS Chloe Mackenzie MD [employer] [address] [place] [address] [place] [address] Referral ID Status Reason Start Date Expiration Date V isits Requested Visits Authorized [id number] Closed Auto-Generate d Referral 02/05/2024 02/24/2025 1 1 [facility] for visit Narrative* Diagnostic Procedure Only (Routine) - Closed Specialty Diagnoses / Procedures Referred By Contac t Referred To Contact XR IMAGING Diagnoses S/P lumbar laminectomy Procedures XR LUMBAR LIMITED 2V AP/LAT RADEX SPINE LUMBOSACRAL 2/3 VIEWS Chloe Mackenzie MD [employer] [address] [place] [phone] [place] [address] Referral ID Status Reason Start Date Expiration Date V isits Requested Visits Authorized [id number] Closed Auto-Generate d Referral 03/02/2024 04/01/2025 1 1 [facility] for visit Narrative* Diagnostic Procedure Only (Routine) - Closed Specialty Diagnoses / Procedures Referred By Contac t Referred To Contact XR IMAGING Diagnoses S/P lumbar laminectomy Procedures XR LUMBAR MOTION 4V AP/LAT/ FLEX/EXT RADEX SPINE LUMBOSACRAL MINIMUM 4 VIEWS Chloe Mackenzie MD [address] [facility] [address] [place] [address] Phone: tel: fax: [place] [address] Referral ID Status Reason Start Date Expiration Date V isits Requested Visits Authorized [id number] Closed Auto-Generate d Referral 07/27/2024 08/26/2025 1 1 [facility] for visit Narrative* MRI/CT (Routine) - Closed Specialty Diagnoses / Procedures Referred By Contac t Referred To Contact MR IMAGING Diagnoses Multiple sclerosis (HCC) Procedures MRI BRAIN WO IVCON MRI BRAIN BRAIN STEM W/O CONTRAST MATERIAL Bill Woods PA-C [address] [place] [address] Phone: tel: fax: MR IMAGING [place] [address] Referral ID Status Reason Start Date Expiration Date V isits Requested Visits Authorized [id number] Closed Auto-Generate d Referral 03/04/2024 04/03/2025 1 1 [facility] for visit Narrative* MRI/CT (Routine) - Closed Specialty Diagnoses / Procedures Referred By Contac t Referred To Contact MR IMAGING Diagnoses Multiple sclerosis (HCC) Procedures MRI CERVICAL SPINE WO IVCON MRI SPINAL CANAL CERVICAL W/O CONTRAST MATRL Bill Woods PA-C [address] [place] [address] Phone: tel: fax: MR IMAGING [facility]95 Referral ID Status Reason Start Date Expiration Date V isits Requested Visits Authorized [id number] Closed Auto-Generate d Referral 03/04/2024 04/03/2025 1 1 [facility] for visit Narrative* Auth/Cert (Routine) Specialty Diagnoses / Procedures Referred By Louise mayo Referred To Contact PAIN MANAGEMENT Diagnoses Sacroiliitis Chronic right sacroiliac joint pain Sacroiliitis [M46.1] Chronic right sacroiliac joint pain [M53.3, G89.29] Procedures INJECT SI JOINT ARTHRGRPHY&/ANES/STEROID W/JANY BLOCK SACROILIAC WITH C-ARM Pain Management [address] [place] [address] Phone: tel: Referral ID Status Reason Start Date Expiration Date Visits Re quested Visits Authorized [id number] 1 1 [facility] for visit Narrative* Consult, Test, Treat (Routine) - Closed Specialty Diagnoses / Procedures Referred By Louise mayo Referred To Contact Diagnoses Controlled type 2 diabetes mellitus without complication, unspecified whether prison insulin use (HCC) Procedures CONSULT TO DIABETES EDUCATION DSME MEDICAL NUTRITION ASSMT&IVNTJ INDIV EACH 15 W[place] MEDICAL NUTRITION ASSMT&IVNTJ INDIV EACH 15 [place] MEDICAL NUTRITION ASSMT&IVNTJ INDIV EACH 15 [place] MEDICAL NUTRITION ASSMT&IVNTJ INDIV EACH 15 W[place] Rosa Flores, AMMONIUM NITRATE CRYSTALLIZER.PUBLIC RELATIONS WRITER [address] [place] [address] Phone: tel: fax: Referral ID Status Reason Start Date Expiration Date V isits Requested Visits Authorized [id number] Closed PCP Requested Referral 09/21/2024 09/21/2025 1 1 [facility] for visit Narrative* Diagnostic Procedure Only (Routine) - Closed Specialty Diagnoses / Procedures Referred By Louise mayo Referred To Contact XR IMAGING Diagnoses Low back pain, unspecified back pain laterality, unspecified chronicity, unspecified whether sciatica present Procedures XR LUMBAR MOTION 4V AP/LAT/ FLEX/EXT RADEX SPINE LUMBOSACRAL MINIMUM 4 VIEWS Chloe Mackenzie MD [address] [place] [address] Phone: tel: fax: [place] [address] Referral ID Status Reason Start Date Expiration Date V isits Requested Visits Authorized [id number] Closed Auto-Generate d Referral 10/20/2024 11/19/2025 1 1 [facility] Summary Purpose Family History No Family History Records Found Relationship Condition Age at Onset Recorded Date/T loly father Malignant neoplasm Unknown mother Malignant neoplasm Unknown Advance Directives No Advanced Directives Records FoundDocuments on File Type Date 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 Advance Directive(s) 10/23/2021 8:31 PM Date Activated Date Inactivated Comments 10/22/2021 6:57 PM 10/26/2021 6:45 PM Question Answer Comments Full Code Order Discussed With: Patient Latest Code Status on File Code Status Date Activated Date Inactivated Comments Full Code 10/22/2021 6:57 PM 10/26/2021 6:45 PM Full Code Order Discussed With: Patient Advance Directive Response Recorded Date/ Time Name of Medical Power of Linen Aide paris mtz May 16, 2021 10:58am Advance Directives No June 02, 2017 12:18pm Living Will Yes June 22 12:48pm Power of Linen Aide Yes June 22, 2021 12:48pm Advance Directive Response Recorded Date/ Time Name of Medical Power of Linen Aide paris mtz May 16, 2021 10:58am Name of Medical Power of Linen Aide PARIS SHAH A LCORN June 22, 2021 12:48pm Advance Directives No June 02, 2017 12:18pm Living Will No August 21, 2021 6:39pm Power of Linen Aide No August 21 6:39pm Advance Directive Response Recorded Date/ Time Name of Medical Power of Linen Aide PAR[place] SHAH A LCORN June 22, 2021 12:48pm Advance Directives No June 02, 2017 12:18pm Living Will No October 07, 2021 5:57pm Power of Linen Aide No October 07 5:57pm Documents on File Type Date Recorded 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 Quan Burns November 16, 2021 11:28pm Advance Directives No June 02, 2017 12:18pm Living Will Yes November 16, 2021 11:28pm Power of Linen Aide Yes November 16 11:28pm Advance Directive Response Recorded Date/ Time Name of Medical Power of Linen Aide PARIS Edouard. 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 Advance Directive(s) 10/23/2021 8:31 PM Latest Code Status on File Code Status Date Activated Date Inactivated Comments Full Code 10/22/2021 6:57 PM 10/26/2021 6:45 PM Latest Code Status on File Code Status Date Activated Date Inactivated Comments Full Code 10/22/2021 6:57 PM 10/26/2021 6:45 PM Question Answer Comments Full Code Order Discussed With: Patient Latest Code Status on File Code Status Date Activated Date Inactivated Comments Full Code 10/22/2021 6:57 PM 10/26/2021 6:45 PM Question Answer Comments Full Code Order Discussed With: Patient Date Activated Date Inactivated Comments 10/22/2021 6:57 PM 10/26/2021 6:45 PM Question Answer Comments Full Code Order Discussed With: Patient Date Activated Date Inactivated Comments 01/20/2024 7:12 PM 01/22/2024 7:12 PM Date Activated Date Inactivated Comments 10/22/2021 6:57 PM 10/26/2021 6:45 PM Question Answer Comments Full Code Order Discussed With: Patient Date Activated Date Inactivated Comments 01/20/2024 7:12 PM 01/22/2024 7:12 PM Date Activated Date Inactivated Comments 10/22/2021 6:57 PM 10/26/2021 6:45 PM Question Answer Comments Full Code Order Discussed With: Patient Date Activated Date Inactivated Comments 02/18/2024 5:18 PM Date Activated Date Inactivated Comments 01/20/2024 7:12 PM 01/22/2024 7:12 PM Date Activated Date Inactivated Comments 10/22/2021 6:57 PM 10/26/2021 6:45 PM Question Answer Comments Full Code Order Discussed With: Patient Date Activated Date Inactivated Comments 02/18/2024 5:18 PM 02/22/2024 7:00 PM Date Activated Date Inactivated Comments 02/18/2024 5:18 PM 02/22/2024 7:00 PM Date Activated Date Inactivated Comments 01/20/2024 7:12 PM 01/22/2024 7:12 PM Date Activated Date Inactivated Comments 10/22/2021 6:57 PM 10/26/2021 6:45 PM Question Answer Comments Full Code Order Discussed With: Patient Chief Complaint and Reason for Visit Chief Complaint S/P HOSP ([facility] SCANN[facility])) CP hypertension chest pain chest pain chest pain chest pain chest pain chest pain chest pain CHEST PAIN AND HEADACHE ER F/U, BP ISSUES 3 M FU BRYAN; LM 07/25 ISCHEMIC CARDIOMYOPATHY 1 M FU Reason for Visit Mural thrombus 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 Essential (primary) hypertension Hyperlipemia Ischemic cardiomyopathy Paroxysmal atrial fibrillation Chest pain Anemia Chronic neck pain with history of cervical spinal surgery Essential (primary) hypertension Hyperkalemia BRYAN (obstructive sleep apnea) Osteoporosis Type 2 diabetes mellitus Chief Complaint hypertension chest pain chest pain chest pain chest pain chest pain chest pain chest pain CHEST PAIN AND HEADACHE ER F/U, BP ISSUES 3 M FU BRYAN; LM 07/25 ISCHEMIC CARDIOMYOPATHY 1 M FU HTN, FLANK PAIN, HEMATURIA Reason for Visit Chest pain Anemia Chronic neck pain with history of cervical spinal surgery Essential (primary) hypertension Hyperkalemia BRYAN (obstructive sleep apnea) Osteoporosis Type 2 diabetes mellitus BRYAN (obstructive sleep apnea) Chief Complaint CHEST PAIN AND HEADA SHIV ER F/U, BP ISSUES 3 M FU BRYAN; LM 07/25 ISCHEMIC CARDIOMYOPATHY 1 M FU HTN, FLANK PAIN, HEMATURIA 6 wk FU dizzy Reason for Visit Anemia Chronic neck pain with history of cervical spinal surgery Essential (primary) hypertension Hyperkalemia BRYAN (obstructive sleep apnea) Type 2 diabetes mellitus BRYAN (obstructive sleep apnea) BRYAN (obstructive sleep apnea) Chief Complaint BRYAN; LM 07/25 ISCHEMIC CARDIOMYOPATHY 1 M FU HTN, FLANK PAIN, HEMATURIA 6 wk FU dizzy ER FU VERTIGO - NNAMDI ER - [facility] Reason for Visit BRYAN (obstructive sle ep apnea) BRYAN (obstructive sleep apnea) Essential (primary) hypertension Paroxysmal atrial fibrillation Type 2 diabetes mellitus Acute UTI Near syncope Sepsis Chief Complaint BRYAN; LM 07/25 ISCHEMIC CARDIOMYOPATHY 1 M FU HTN, FLANK PAIN, HEMATURIA 6 wk FU dizzy ER FU [facility]IGO - NNAMDI ER [facility] PRES[facility]NC[facility] PRESYNCOPE PRESYNCOPE PRESYNCOPE PRESYNCOPE Reason for Visit BRYAN (obstructive sle ep apnea) BRYAN (obstructive sleep apnea) Essential (primary) hypertension Paroxysmal atrial fibrillation Type 2 diabetes mellitus Acute UTI Near syncope Sepsis Chronic neck pain with history of cervical spinal surgery Chief Complaint ER FU VERTIGO - WOOS TER ER [facility] PRESYNCOPE PRESYNCOPE PRESYNCOPE PRESYNCOPE PRESYNCOPE PRESYNCOPE WC AND DM RODNEY FU PROLIA s/p hosp weakness, dizzy, confused Reason for Visit Essential (primary) hypertension Paroxysmal atrial fibrillation Type 2 diabetes mellitus Chronic neck pain with history of cervical spinal surgery Near syncope Syncope Chronic systolic (congestive) heart failure Essential (primary) hypertension Type 2 diabetes mellitus Osteoporosis Atherosclerotic heart disease of [place] coronary artery without angina pectoris Essential (primary) hypertension Hyperlipemia Ischemic cardiomyopathy Mural thrombus of heart Paroxysmal atrial fibrillation Chief Complaint WC AND DM RODNEY F U PROLIA s/p hosp weakness, dizzy, confused 3 M FU/FLU SHOT CHEST PAIN Reason for Visit Syncope Chronic systolic (congestive) heart failure Essential (primary) hypertension Type 2 diabetes mellitus Osteoporosis Atherosclerotic heart disease of [place] coronary artery without angina pectoris Essential (primary) hypertension Hyperlipemia Ischemic cardiomyopathy Mural thrombus of heart Paroxysmal atrial fibrillation Anxiety and depression Chronic systolic (congestive) heart failure CKD (chronic kidney disease) stage 3, GFR 30-59 ml/min Type 2 diabetes mellitus Reason for Referral Specialty Diagnoses / Procedures Referred By Contac t Referred To Contact CT IMAGING Diagnoses Spinal stenosis of lumbar region with neurogenic claudication Procedures CT LUMBAR SPINE WO IVCON CT LUMBAR SPINE W/O CONTRAST MATERIAL Javier Rogers MD [facility] [place] [address] Ct Imaging [place] [address] Referral ID Status Reason Start Date Expiration Date Visits Requested Visits Authorized [id number] New Request Auto-Generat ed Referral 11/27/2023 12/26/2024 1 1 Specialty Diagnoses / Procedures Referred By Contac t Referred To Contact CT IMAGING Diagnoses Thoracic myelopathy Procedures CT THORACIC SPINE WO IVCON CT THORACIC SPINE W/O CONTRAST MATERIAL Javier Rogers MD [address] [place] [address] Ct Imaging [place] [address] Referral ID Status Reason Start Date Expiration Date Visits Requested Visits Authorized [id number] New Request Auto-Generat ed Referral 11/27/2023 12/26/2024 1 1 Specialty Diagnoses / Procedures Referred By Contac t Referred To Contact Diagnoses Thoracic myelopathy Procedures CONSULT TO SPINE SURGERY OFFICE/OUTPATIENT NEW HIGH MDM 60 MINUTES Meka Webb MD [facility] [place] [id number] Referral ID Status Reason Start Date Expiration Date Visits Requested Visits Authorized [id number] Authorized PCP Requested Referral 10/28/2023 10/27/2024 1 1 Specialty Diagnoses / Procedures Referred By Contac t Referred To Contact MR IMAGING Diagnoses Thoracic myelopathy History of multiple sclerosis (HCC) Procedures MRI THORACIC SPINE WO/W IVCON MRI SPINAL CANAL THORACIC W/O & W/CONTR MATRL Meka Webb MD [address] [place] [address] [facility] [place] [address] Referral ID Status Reason Start Date Expiration Date Visits Requested Visits Authorized [id number] Authorized Auto-Generat ed Referral 09/15/2023 10/14/2024 1 1 Specialty Diagnoses / Procedures Referred By Contac t Referred To Contact XR IMAGING Diagnoses Thoracic myelopathy History of multiple sclerosis (HCC) Procedures XR THORACIC GENERAL 3V AP/LAT/SWIMMERS RADEX SPINE THORACIC 3 VIEWS Meka Webb MD [address] [place] [address] Xr Imaging [place] [address] Referral ID Status Reason Start Date Expiration Date Visits Requested Visits Authorized [id number] Pending Review Auto-Generat ed Referral 09/15/2023 10/14/2024 1 1 Specialty Diagnoses / Procedures Referred By Contac t Referred To Contact [facility] Diagnoses Other kyphosis of thoracic region Abnormal posture Abnormal increased muscle tightness Procedures CONSULT TO PHYSICAL THERAPY PHYSICAL THERAPY EVALUATION HIGH COMPLEX 45 MINS Heather Davis MD [address] [place] [address] [facility] [place] [address] Referral ID Status Reason Start Date Expiration Date Visits Requested Visits Authorized [id number] Pending Review Auto-Generat ed Referral 04/03/2023 04/02/2024 1 1 Specialty Diagnoses / Procedures Referred By Contac t Referred To Contact MR IMAGING Diagnoses Multiple sclerosis (HCC) Procedures MRI THORACIC SPINE WO/W IVCON MRI SPINAL CANAL THORACIC W/O & W/CONTR Blil Leahy PA-C [address] [place] [phone] [facility] [place] [address] Referral ID Status Reason Start Date Expiration Date V isits Requested Visits Authorized [id number] Closed Auto-Generate d Referral 10/02/2021 11/01/2022 1 1 Specialty Diagnoses / Procedures Referred By Contac t Referred To Contact MR IMAGING Diagnoses Multiple sclerosis (HCC) Procedures MRI CERVICAL SPINE WO/W IVCON MRI SPINAL CANAL CERVICAL W/O & W/CONTR Bill Leahy PA-C [address] [place] [phone] Mr [facility]95 Referral ID Status Reason Start Date Expiration Date V isits Requested Visits Authorized [id number] Closed Auto-Generate d Referral 10/02/2021 11/01/2022 1 1 Specialty Diagnoses / Procedures Referred By Contac t Referred To Contact MR IMAGING Diagnoses Multiple sclerosis (HCC) Procedures MRI BRAIN WO/W IVCON MRI BRAIN BRAIN STEM W/O W/CONTRAST MATERIAL Bill Woods PA-C [address] [facility] [place] [phone] [facility] [place] [address] Referral ID Status Reason Start Date Expiration Date V isits Requested Visits Authorized [id number] Closed Auto-Generate d Referral 10/02/2021 11/01/2022 1 1 Specialty Diagnoses / Procedures Referred By Kevac t Referred To Contact Dermatology Diagnoses Lesion of skin of face Skin sore Procedures CONSULT TO DERMATOLOGY OFFICE/OUTPATIENT [facility] 60-74 MINUTES Bill Woods PA-C [address] [place] [address] Referral ID Status Reason Start Date Expiration Date Visits Requested Visits Authorized [id number] Pending Review PCP Requested Referral 01/14/2023 01/14/2024 1 1 Specialty Diagnoses / Procedures Referred By Kevac t Referred To Contact Dentistry Diagnoses BRYAN (obstructive sleep apnea) Procedures CONSULT TO DENTISTRY OFFICE/OUTPATIENT [facility] 60-74 MINUTES Bill Woods PA-C [address] [facility] [place] [address] Referral ID Status Reason Start Date Expiration Date Visits Requested Visits Authorized [id number] Pending Review PCP Requested Referral 12/17/2022 12/16/2023 1 1 Specialty Diagnoses / Procedures Referred By Contac t Referred To Contact [facility] Diagnoses Multiple sclerosis (HCC) Procedures CONSULT TO SPEECH THERAPY OFFICE/OUTPATIENT [facility] 60-74 MINUTES Bill Woods PA-C [address] [place] [address] [facility] [place] [address] [place] [id number] Referral ID Status Reason Start Date Expiration Date Visits Requested Visits Authorized [id number] Pending Review Auto-Generat ed Referral 12/03/2022 12/03/2023 1 1 Specialty Diagnoses / Procedures Referred By Contac t Referred To Contact Diagnoses Sleep apnea, unspecified type Procedures CONSULT TO SLEEP MEDICINE - ADULT OFFICE/OUTPATIENT [facility] 60-74 MINUTES Bill Woods PA-C [address] [place] [address] Referral ID Status Reason Start Date Expiration Date Visits Requested Visits Authorized [id number] Pending Review PCP Requested Referral 12/03/2022 12/03/2023 1 1 Specialty Diagnoses / Procedures Referred By Contac t Referred To Contact Pain Management Diagnoses DDD (degenerative disc disease), thoracic Multiple sclerosis (HCC) Procedures CONSULT TO PAIN MGT OFFICE/OUTPATIENT [facility] MDM 60-74 MINUTES Bill Woods PA-C [address] [place] [address] Referral ID Status Reason Start Date Expiration Date Visits Requested Visits Authorized [id number] Pending Review PCP Requested Referral 10/21/2022 10/21/2023 1 1 Specialty Diagnoses / Procedures Referred By Louise t Referred To Contact Endocrinology Diagnoses Type 2 diabetes mellitus with other specified complication, without long-term current use of insulin (HCC) Procedures CONSULT TO ENDOCRINOLOGY OFFICE/OUTPATIENT [facility] 60-74 MINUTES Bill Woods PA-C [address] [place] [address] Referral ID Status Reason Start Date Expiration Date Visits Requested Visits Authorized [id number] Pending Review PCP Requested Referral 07/29/2022 07/29/2023 1 1 Additional Source Comments INFORMATION SOURCE (unrecogn ized section and content) DATE CREATED AUTHOR 10/19/2017 [facility] Chloe Caro DATE CREATED AUTHOR AUTHOR'S ORGANIZ ATION 02/25/2018 [facility] DATE CREATED AUTHOR AUTHOR'S ORGANIZ ATION 04/09/2018 [facility] DATE CREATED AUTHOR AUTHOR'S ORGANIZ ATION 06/15/2018 [facility] DATE CREATED AUTHOR AUTHOR'S ORGANIZ ATION 01/31/2020 [facility] DATE CREATED AUTHOR AUTHOR'S ORGANIZ ATION 06/29/2021 [facility] ([place]) DATE CREATED AUTHOR AUTHOR'S ORGANIZ ATION 01/18/2023 [facility] DATE CREATED AUTHOR AUTHOR'S ORGANIZ ATION 11/30/2023 [facility] DATE CREATED AUTHOR AUTHOR'S ORGANIZ ATION 11/07/2024 [facility] DATE CREATED AUTHOR AUTHOR'S ORGANIZ ATION 11/15/2024 [facility] DATE CREATED AUTHOR AUTHOR'S ORGANIZ ATION 11/18/2024 [facility] Chen Goals (unrecognized section and content) Goals may be documented in a n alternate section Source Comments (unrecognize d section and content) In the event this informatio n is protected by the Federal Confidentiality of Alcohol and Drug Abuse Patient Records regulations: The Federal rules restrict any use of the information to criminally investigate or prosecute any alcohol or drug abuse patient.[facility] the event this information is protected by the Federal Confidentiality of Alcohol and Drug Abuse Patient Records regulations: The Federal rules restrict any use of the information to criminally investigate or prosecute any alcohol or drug abuse patient.[facility] the event this information is protected by the Federal Confidentiality of Alcohol and Drug Abuse Patient Records regulations: The Federal rules restrict any use of the information to criminally investigate or prosecute any alcohol or drug abuse patient.[facility]In the event this information is protected by the Federal Confidentiality of Alcohol and Drug Abuse Patient Records regulations: The Federal rules restrict any use of the information to criminally investigate or prosecute any alcohol or drug abuse patient.[facility]In the event this information is protected by the Federal Confidentiality of Alcohol and Drug Abuse Patient Records regulations: The Federal rules restrict any use of the information to criminally investigate or prosecute any alcohol or drug abuse patient.[facility]In the event this information is protected by the Federal Confidentiality of Alcohol and Drug Abuse Patient Records regulations: The Federal rules restrict any use of the information to criminally investigate or prosecute any alcohol or drug abuse patient.[facility] HospitalIn the event this information is protected by the Federal Confidentiality of Alcohol and Drug Abuse Patient Records regulations: The Federal rules restrict any use of the information to criminally investigate or prosecute any alcohol or drug abuse patient.[facility] HospitalIn the event this information is protected by the Federal Confidentiality of Alcohol and Drug Abuse Patient Records regulations: The Federal rules restrict any use of the information to criminally investigate or prosecute any alcohol or drug abuse patient.[facility] HospitalIn the event this information is protected by the Federal Confidentiality of Alcohol and Drug Abuse Patient Records regulations: The Federal rules restrict any use of the information to criminally investigate or prosecute any alcohol or drug abuse patient.[facility] HospitalIn the event this information is protected by the Federal Confidentiality of Alcohol and Drug Abuse Patient Records regulations: The Federal rules restrict any use of the information to criminally investigate or prosecute any alcohol or drug abuse patient.[facility] HospitalIn the event this information is protected by the Federal Confidentiality of Alcohol and Drug Abuse Patient Records regulations: The Federal rules restrict any use of the information to criminally investigate or prosecute any alcohol or drug abuse patient.[facility] HospitalIn the event this information is protected by the Federal Confidentiality of Alcohol and Drug Abuse Patient Records regulations: The Federal rules restrict any use of the information to criminally investigate or prosecute any alcohol or drug abuse patient.[facility] HospitalIn the event this information is protected by the Federal Confidentiality of Alcohol and Drug Abuse Patient Records regulations: The Federal rules restrict any use of the information to criminally investigate or prosecute any alcohol or drug abuse patient.[facility] HospitalIn the event this information is protected by the Federal Confidentiality of Alcohol and Drug Abuse Patient Records regulations: The Federal rules restrict any use of the information to criminally investigate or prosecute any alcohol or drug abuse patient.[facility] HospitalIn the event this information is protected by the Federal Confidentiality of Alcohol and Drug Abuse Patient Records regulations: The Federal rules restrict any use of the information to criminally investigate or prosecute any alcohol or drug abuse patient.[facility] HospitalIn the event this information is protected by the Federal Confidentiality of Alcohol and Drug Abuse Patient Records regulations: The Federal rules restrict any use of the information to criminally investigate or prosecute any alcohol or drug abuse patient.[facility] HospitalIn the event this information is protected by the Federal Confidentiality of Alcohol and Drug Abuse Patient Records regulations: The Federal rules restrict any use of the information to criminally investigate or prosecute any alcohol or drug abuse patient.[facility] HospitalIn the event this information is protected by the Federal Confidentiality of Alcohol and Drug Abuse Patient Records regulations: The Federal rules restrict any use of the information to criminally investigate or prosecute any alcohol or drug abuse patient.[facility] HospitalIn the event this information is protected by the Federal Confidentiality of Alcohol and Drug Abuse Patient Records regulations: The Federal rules restrict any use of the information to criminally investigate or prosecute any alcohol or drug abuse patient.[facility] HospitalIn the event this information is protected by the Federal Confidentiality of Alcohol and Drug Abuse Patient Records regulations: The Federal rules restrict any use of the information to criminally investigate or prosecute any alcohol or drug abuse patient.[facility] HospitalIn the event this information is protected by the Federal Confidentiality of Alcohol and Drug Abuse Patient Records regulations: The Federal rules restrict any use of the information to criminally investigate or prosecute any alcohol or drug abuse patient.[facility] HospitalIn the event this information is protected by the Federal Confidentiality of Alcohol and Drug Abuse Patient Records regulations: The Federal rules restrict any use of the information to criminally investigate or prosecute any alcohol or drug abuse patient.[facility] HospitalIn the event this information is protected by the Federal Confidentiality of Alcohol and Drug Abuse Patient Records regulations: The Federal rules restrict any use of the information to criminally investigate or prosecute any alcohol or drug abuse patient.[facility] HospitalIn the event this information is protected by the Federal Confidentiality of Alcohol and Drug Abuse Patient Records regulations: The Federal rules restrict any use of the information to criminally investigate or prosecute any alcohol or drug abuse patient.[facility] HospitalIn the event this information is protected by the Federal Confidentiality of Alcohol and Drug Abuse Patient Records regulations: The Federal rules restrict any use of the information to criminally investigate or prosecute any alcohol or drug abuse patient.[facility] HospitalIn the event this information is protected by the Federal Confidentiality of Alcohol and Drug Abuse Patient Records regulations: The Federal rules restrict any use of the information to criminally investigate or prosecute any alcohol or drug abuse patient.[facility] HospitalIn the event this information is protected by the Federal Confidentiality of Alcohol and Drug Abuse Patient Records regulations: The Federal rules restrict any use of the information to criminally investigate or prosecute any alcohol or drug abuse patient.[facility] HospitalIn the event this information is protected by the Federal Confidentiality of Alcohol and Drug Abuse Patient Records regulations: The Federal rules restrict any use of the information to criminally investigate or prosecute any alcohol or drug abuse patient.[facility] HospitalIn the event this information is protected by the Federal Confidentiality of Alcohol and Drug Abuse Patient Records regulations: The Federal rules restrict any use of the information to criminally investigate or prosecute any alcohol or drug abuse patient.[facility] HospitalIn the event this information is protected by the Federal Confidentiality of Alcohol and Drug Abuse Patient Records regulations: The Federal rules restrict any use of the information to criminally investigate or prosecute any alcohol or drug abuse patient.[facility] HospitalIn the event this information is protected by the Federal Confidentiality of Alcohol and Drug Abuse Patient Records regulations: The Federal rules restrict any use of the information to criminally investigate or prosecute any alcohol or drug abuse patient.[facility] HospitalIn the event this information is protected by the Federal Confidentiality of Alcohol and Drug Abuse Patient Records regulations: The Federal rules restrict any use of the information to criminally investigate or prosecute any alcohol or drug abuse patient.[facility] HospitalIn the event this information is protected by the Federal Confidentiality of Alcohol and Drug Abuse Patient Records regulations: The Federal rules restrict any use of the information to criminally investigate or prosecute any alcohol or drug abuse patient.[facility] HospitalIn the event this information is protected by the Federal Confidentiality of Alcohol and Drug Abuse Patient Records regulations: The Federal rules restrict any use of the information to criminally investigate or prosecute any alcohol or drug abuse patient.[facility] HospitalIn the event this information is protected by the Federal Confidentiality of Alcohol and Drug Abuse Patient Records regulations: The Federal rules restrict any use of the information to criminally investigate or prosecute any alcohol or drug abuse patient.[facility] HospitalIn the event this information is protected by the Federal Confidentiality of Alcohol and Drug Abuse Patient Records regulations: The Federal rules restrict any use of the information to criminally investigate or prosecute any alcohol or drug abuse patient.[facility] HospitalIn the event this information is protected by the Federal Confidentiality of Alcohol and Drug Abuse Patient Records regulations: The Federal rules restrict any use of the information to criminally investigate or prosecute any alcohol or drug abuse patient.[facility] HospitalIn the event this information is protected by the Federal Confidentiality of Alcohol and Drug Abuse Patient Records regulations: The Federal rules restrict any use of the information to criminally investigate or prosecute any alcohol or drug abuse patient.[facility] HospitalIn the event this information is protected by the Federal Confidentiality of Alcohol and Drug Abuse Patient Records regulations: The Federal rules restrict any use of the information to criminally investigate or prosecute any alcohol or drug abuse patient.[facility] HospitalIn the event this information is protected by the Federal Confidentiality of Alcohol and Drug Abuse Patient Records regulations: The Federal rules restrict any use of the information to criminally investigate or prosecute any alcohol or drug abuse patient.[facility] HospitalIn the event this information is protected by the Federal Confidentiality of Alcohol and Drug Abuse Patient Records regulations: The Federal rules restrict any use of the information to criminally investigate or prosecute any alcohol or drug abuse patient.[facility] HospitalIn the event this information is protected by the Federal Confidentiality of Alcohol and Drug Abuse Patient Records regulations: The Federal rules restrict any use of the information to criminally investigate or prosecute any alcohol or drug abuse patient.[facility] HospitalIn the event this information is protected by the Federal Confidentiality of Alcohol and Drug Abuse Patient Records regulations: The Federal rules restrict any use of the information to criminally investigate or prosecute any alcohol or drug abuse patient.[facility] HospitalIn the event this information is protected by the Federal Confidentiality of Alcohol and Drug Abuse Patient Records regulations: The Federal rules restrict any use of the information to criminally investigate or prosecute any alcohol or drug abuse patient.[facility] HospitalIn the event this information is protected by the Federal Confidentiality of Alcohol and Drug Abuse Patient Records regulations: The Federal rules restrict any use of the information to criminally investigate or prosecute any alcohol or drug abuse patient.[facility] HospitalIn the event this information is protected by the Federal Confidentiality of Alcohol and Drug Abuse Patient Records regulations: The Federal rules restrict any use of the information to criminally investigate or prosecute any alcohol or drug abuse patient.[facility] HospitalIn the event this information is protected by the Federal Confidentiality of Alcohol and Drug Abuse Patient Records regulations: The Federal rules restrict any use of the information to criminally investigate or prosecute any alcohol or drug abuse patient.[facility] HospitalIn the event this information is protected by the Federal Confidentiality of Alcohol and Drug Abuse Patient Records regulations: The Federal rules restrict any use of the information to criminally investigate or prosecute any alcohol or drug abuse patient.[facility] HospitalIn the event this information is protected by the Federal Confidentiality of Alcohol and Drug Abuse Patient Records regulations: The Federal rules restrict any use of the information to criminally investigate or prosecute any alcohol or drug abuse patient.[facility] HospitalIn the event this information is protected by the Federal Confidentiality of Alcohol and Drug Abuse Patient Records regulations: The Federal rules restrict any use of the information to criminally investigate or prosecute any alcohol or drug abuse patient.[facility] HospitalIn the event this information is protected by the Federal Confidentiality of Alcohol and Drug Abuse Patient Records regulations: The Federal rules restrict any use of the information to criminally investigate or prosecute any alcohol or drug abuse patient.[facility] HospitalIn the event this information is protected by the Federal Confidentiality of Alcohol and Drug Abuse Patient Records regulations: The Federal rules restrict any use of the information to criminally investigate or prosecute any alcohol or drug abuse patient.[facility] HospitalIn the event this information is protected by the Federal Confidentiality of Alcohol and Drug Abuse Patient Records regulations: The Federal rules restrict any use of the information to criminally investigate or prosecute any alcohol or drug abuse patient.[facility] HospitalIn the event this information is protected by the Federal Confidentiality of Alcohol and Drug Abuse Patient Records regulations: The Federal rules restrict any use of the information to criminally investigate or prosecute any alcohol or drug abuse patient.[facility] HospitalIn the event this information is protected by the Federal Confidentiality of Alcohol and Drug Abuse Patient Records regulations: The Federal rules restrict any use of the information to criminally investigate or prosecute any alcohol or drug abuse patient.[facility] HospitalIn the event this information is protected by the Federal Confidentiality of Alcohol and Drug Abuse Patient Records regulations: The Federal rules restrict any use of the information to criminally investigate or prosecute any alcohol or drug abuse patient.[facility] HospitalIn the event this information is protected by the Federal Confidentiality of Alcohol and Drug Abuse Patient Records regulations: The Federal rules restrict any use of the information to criminally investigate or prosecute any alcohol or drug abuse patient.[facility] HospitalIn the event this information is protected by the Federal Confidentiality of Alcohol and Drug Abuse Patient Records regulations: The Federal rules restrict any use of the information to criminally investigate or prosecute any alcohol or drug abuse patient.[facility] HospitalIn the event this information is protected by the Federal Confidentiality of Alcohol and Drug Abuse Patient Records regulations: The Federal rules restrict any use of the information to criminally investigate or prosecute any alcohol or drug abuse patient.[facility] HospitalIn the event this information is protected by the Federal Confidentiality of Alcohol and Drug Abuse Patient Records regulations: The Federal rules restrict any use of the information to criminally investigate or prosecute any alcohol or drug abuse patient.[facility] HospitalIn the event this information is protected by the Federal Confidentiality of Alcohol and Drug Abuse Patient Records regulations: The Federal rules restrict any use of the information to criminally investigate or prosecute any alcohol or drug abuse patient.[facility]In the event this information is protected by the Federal Confidentiality of Alcohol and Drug Abuse Patient Records regulations: The Federal rules restrict any use of the information to criminally investigate or prosecute any alcohol or drug abuse patient.[facility] HospitalIn the event this information is protected by the Federal Confidentiality of Alcohol and Drug Abuse Patient Records regulations: The Federal rules restrict any use of the information to criminally investigate or prosecute any alcohol or drug abuse patient.[facility] HospitalIn the event this information is protected by the Federal Confidentiality of Alcohol and Drug Abuse Patient Records regulations: The Federal rules restrict any use of the information to criminally investigate or prosecute any alcohol or drug abuse patient.[facility] HospitalIn the event this information is protected by the Federal Confidentiality of Alcohol and Drug Abuse Patient Records regulations: The Federal rules restrict any use of the information to criminally investigate or prosecute any alcohol or drug abuse patient.[facility] HospitalIn the event this information is protected by the Federal Confidentiality of Alcohol and Drug Abuse Patient Records regulations: The Federal rules restrict any use of the information to criminally investigate or prosecute any alcohol or drug abuse patient.[facility] HospitalIn the event this information is protected by the Federal Confidentiality of Alcohol and Drug Abuse Patient Records regulations: The Federal rules restrict any use of the information to criminally investigate or prosecute any alcohol or drug abuse patient.[facility] HospitalIn the event this information is protected by the Federal Confidentiality of Alcohol and Drug Abuse Patient Records regulations: The Federal rules restrict any use of the information to criminally investigate or prosecute any alcohol or drug abuse patient.[facility] HospitalIn the event this information is protected by the Federal Confidentiality of Alcohol and Drug Abuse Patient Records regulations: The Federal rules restrict any use of the information to criminally investigate or prosecute any alcohol or drug abuse patient.[facility] HospitalIn the event this information is protected by the Federal Confidentiality of Alcohol and Drug Abuse Patient Records regulations: The Federal rules restrict any use of the information to criminally investigate or prosecute any alcohol or drug abuse patient.[facility] HospitalIn the event this information is protected by the Federal Confidentiality of Alcohol and Drug Abuse Patient Records regulations: The Federal rules restrict any use of the information to criminally investigate or prosecute any alcohol or drug abuse patient.[facility] HospitalIn the event this information is protected by the Federal Confidentiality of Alcohol and Drug Abuse Patient Records regulations: The Federal rules restrict any use of the information to criminally investigate or prosecute any alcohol or drug abuse patient.[facility] HospitalIn the event this information is protected by the Federal Confidentiality of Alcohol and Drug Abuse Patient Records regulations: The Federal rules restrict any use of the information to criminally investigate or prosecute any alcohol or drug abuse patient.[facility] HospitalIn the event this information is protected by the Federal Confidentiality of Alcohol and Drug Abuse Patient Records regulations: The Federal rules restrict any use of the information to criminally investigate or prosecute any alcohol or drug abuse patient.[facility] HospitalIn the event this information is protected by the Federal Confidentiality of Alcohol and Drug Abuse Patient Records regulations: The Federal rules restrict any use of the information to criminally investigate or prosecute any alcohol or drug abuse patient.[facility] HospitalIn the event this information is protected by the Federal Confidentiality of Alcohol and Drug Abuse Patient Records regulations: The Federal rules restrict any use of the information to criminally investigate or prosecute any alcohol or drug abuse patient.[facility] HospitalIn the event this information is protected by the Federal Confidentiality of Alcohol and Drug Abuse Patient Records regulations: The Federal rules restrict any use of the information to criminally investigate or prosecute any alcohol or drug abuse patient.[facility] HospitalIn the event this information is protected by the Federal Confidentiality of Alcohol and Drug Abuse Patient Records regulations: The Federal rules restrict any use of the information to criminally investigate or prosecute any alcohol or drug abuse patient.[facility] HospitalIn the event this information is protected by the Federal Confidentiality of Alcohol and Drug Abuse Patient Records regulations: The Federal rules restrict any use of the information to criminally investigate or prosecute any alcohol or drug abuse patient.[facility] HospitalIn the event this information is protected by the Federal Confidentiality of Alcohol and Drug Abuse Patient Records regulations: The Federal rules restrict any use of the information to criminally investigate or prosecute any alcohol or drug abuse patient.[facility] HospitalIn the event this information is protected by the Federal Confidentiality of Alcohol and Drug Abuse Patient Records regulations: The Federal rules restrict any use of the information to criminally investigate or prosecute any alcohol or drug abuse patient.[facility] HospitalIn the event this information is protected by the Federal Confidentiality of Alcohol and Drug Abuse Patient Records regulations: The Federal rules restrict any use of the information to criminally investigate or prosecute any alcohol or drug abuse patient.[facility] HospitalIn the event this information is protected by the Federal Confidentiality of Alcohol and Drug Abuse Patient Records regulations: The Federal rules restrict any use of the information to criminally investigate or prosecute any alcohol or drug abuse patient.[facility] HospitalIn the event this information is protected by the Federal Confidentiality of Alcohol and Drug Abuse Patient Records regulations: The Federal rules restrict any use of the information to criminally investigate or prosecute any alcohol or drug abuse patient.[facility] HospitalIn the event this information is protected by the Federal Confidentiality of Alcohol and Drug Abuse Patient Records regulations: The Federal rules restrict any use of the information to criminally investigate or prosecute any alcohol or drug abuse patient.[facility] HospitalIn the event this information is protected by the Federal Confidentiality of Alcohol and Drug Abuse Patient Records regulations: The Federal rules restrict any use of the information to criminally investigate or prosecute any alcohol or drug abuse patient.[facility] HospitalIn the event this information is protected by the Federal Confidentiality of Alcohol and Drug Abuse Patient Records regulations: The Federal rules restrict any use of the information to criminally investigate or prosecute any alcohol or drug abuse patient.[facility] HospitalIn the event this information is protected by the Federal Confidentiality of Alcohol and Drug Abuse Patient Records regulations: The Federal rules restrict any use of the information to criminally investigate or prosecute any alcohol or drug abuse patient.[facility] HospitalIn the event this information is protected by the Federal Confidentiality of Alcohol and Drug Abuse Patient Records regulations: The Federal rules restrict any use of the information to criminally investigate or prosecute any alcohol or drug abuse patient.[facility] HospitalIn the event this information is protected by the Federal Confidentiality of Alcohol and Drug Abuse Patient Records regulations: The Federal rules restrict any use of the information to criminally investigate or prosecute any alcohol or drug abuse patient.[facility] HospitalIn the event this information is protected by the Federal Confidentiality of Alcohol and Drug Abuse Patient Records regulations: The Federal rules restrict any use of the information to criminally investigate or prosecute any alcohol or drug abuse patient.[facility] HospitalIn the event this information is protected by the Federal Confidentiality of Alcohol and Drug Abuse Patient Records regulations: The Federal rules restrict any use of the information to criminally investigate or prosecute any alcohol or drug abuse patient.[facility] HospitalIn the event this information is protected by the Federal Confidentiality of Alcohol and Drug Abuse Patient Records regulations: The Federal rules restrict any use of the information to criminally investigate or prosecute any alcohol or drug abuse patient.[facility] HospitalIn the event this information is protected by the Federal Confidentiality of Alcohol and Drug Abuse Patient Records regulations: The Federal rules restrict any use of the information to criminally investigate or prosecute any alcohol or drug abuse patient.[facility] HospitalIn the event this information is protected by the Federal Confidentiality of Alcohol and Drug Abuse Patient Records regulations: The Federal rules restrict any use of the information to criminally investigate or prosecute any alcohol or drug abuse patient.[facility] HospitalIn the event this information is protected by the Federal Confidentiality of Alcohol and Drug Abuse Patient Records regulations: The Federal rules restrict any use of the information to criminally investigate or prosecute any alcohol or drug abuse patient.[facility] HospitalIn the event this information is protected by the Federal Confidentiality of Alcohol and Drug Abuse Patient Records regulations: The Federal rules restrict any use of the information to criminally investigate or prosecute any alcohol or drug abuse patient.[facility] HospitalIn the event this information is protected by the Federal Confidentiality of Alcohol and Drug Abuse Patient Records regulations: The Federal rules restrict any use of the information to criminally investigate or prosecute any alcohol or drug abuse patient.[facility] HospitalIn the event this information is protected by the Federal Confidentiality of Alcohol and Drug Abuse Patient Records regulations: The Federal rules restrict any use of the information to criminally investigate or prosecute any alcohol or drug abuse patient.[facility] HospitalIn the event this information is protected by the Federal Confidentiality of Alcohol and Drug Abuse Patient Records regulations: The Federal rules restrict any use of the information to criminally investigate or prosecute any alcohol or drug abuse patient.[facility] HospitalIn the event this information is protected by the Federal Confidentiality of Alcohol and Drug Abuse Patient Records regulations: The Federal rules restrict any use of the information to criminally investigate or prosecute any alcohol or drug abuse patient.[facility] HospitalIn the event this information is protected by the Federal Confidentiality of Alcohol and Drug Abuse Patient Records regulations: The Federal rules restrict any use of the information to criminally investigate or prosecute any alcohol or drug abuse patient.[facility] HospitalIn the event this information is protected by the Federal Confidentiality of Alcohol and Drug Abuse Patient Records regulations: The Federal rules restrict any use of the information to criminally investigate or prosecute any alcohol or drug abuse patient.[facility] HospitalIn the event this information is protected by the Federal Confidentiality of Alcohol and Drug Abuse Patient Records regulations: The Federal rules restrict any use of the information to criminally investigate or prosecute any alcohol or drug abuse patient.[facility] HospitalIn the event this information is protected by the Federal Confidentiality of Alcohol and Drug Abuse Patient Records regulations: The Federal rules restrict any use of the information to criminally investigate or prosecute any alcohol or drug abuse patient.[facility] HospitalIn the event this information is protected by the Federal Confidentiality of Alcohol and Drug Abuse Patient Records regulations: The Federal rules restrict any use of the information to criminally investigate or prosecute any alcohol or drug abuse patient.[facility] HospitalIn the event this information is protected by the Federal Confidentiality of Alcohol and Drug Abuse Patient Records regulations: The Federal rules restrict any use of the information to criminally investigate or prosecute any alcohol or drug abuse patient.[facility] HospitalIn the event this information is protected by the Federal Confidentiality of Alcohol and Drug Abuse Patient Records regulations: The Federal rules restrict any use of the information to criminally investigate or prosecute any alcohol or drug abuse patient.[facility] HospitalIn the event this information is protected by the Federal Confidentiality of Alcohol and Drug Abuse Patient Records regulations: The Federal rules restrict any use of the information to criminally investigate or prosecute any alcohol or drug abuse patient.[facility] HospitalIn the event this information is protected by the Federal Confidentiality of Alcohol and Drug Abuse Patient Records regulations: The Federal rules restrict any use of the information to criminally investigate or prosecute any alcohol or drug abuse patient.[facility] HospitalIn the event this information is protected by the Federal Confidentiality of Alcohol and Drug Abuse Patient Records regulations: The Federal rules restrict any use of the information to criminally investigate or prosecute any alcohol or drug abuse patient.[facility] HospitalIn the event this information is protected by the Federal Confidentiality of Alcohol and Drug Abuse Patient Records regulations: The Federal rules restrict any use of the information to criminally investigate or prosecute any alcohol or drug abuse patient.[facility] HospitalIn the event this information is protected by the Federal Confidentiality of Alcohol and Drug Abuse Patient Records regulations: The Federal rules restrict any use of the information to criminally investigate or prosecute any alcohol or drug abuse patient.[facility] HospitalIn the event this information is protected by the Federal Confidentiality of Alcohol and Drug Abuse Patient Records regulations: The Federal rules restrict any use of the information to criminally investigate or prosecute any alcohol or drug abuse patient.[facility] HospitalIn the event this information is protected by the Federal Confidentiality of Alcohol and Drug Abuse Patient Records regulations: The Federal rules restrict any use of the information to criminally investigate or prosecute any alcohol or drug abuse patient.[facility] HospitalIn the event this information is protected by the Federal Confidentiality of Alcohol and Drug Abuse Patient Records regulations: The Federal rules restrict any use of the information to criminally investigate or prosecute any alcohol or drug abuse patient.[facility] HospitalIn the event this information is protected by the Federal Confidentiality of Alcohol and Drug Abuse Patient Records regulations: The Federal rules restrict any use of the information to criminally investigate or prosecute any alcohol or drug abuse patient.[facility] HospitalIn the event this information is protected by the Federal Confidentiality of Alcohol and Drug Abuse Patient Records regulations: The Federal rules restrict any use of the information to criminally investigate or prosecute any alcohol or drug abuse patient.[facility] HospitalIn the event this information is protected by the Federal Confidentiality of Alcohol and Drug Abuse Patient Records regulations: The Federal rules restrict any use of the information to criminally investigate or prosecute any alcohol or drug abuse patient.[facility] HospitalIn the event this information is protected by the Federal Confidentiality of Alcohol and Drug Abuse Patient Records regulations: The Federal rules restrict any use of the information to criminally investigate or prosecute any alcohol or drug abuse patient.[facility] HospitalIn the event this information is protected by the Federal Confidentiality of Alcohol and Drug Abuse Patient Records regulations: The Federal rules restrict any use of the information to criminally investigate or prosecute any alcohol or drug abuse patient.[facility] HospitalIn the event this information is protected by the Federal Confidentiality of Alcohol and Drug Abuse Patient Records regulations: The Federal rules restrict any use of the information to criminally investigate or prosecute any alcohol or drug abuse patient.[facility] HospitalIn the event this information is protected by the Federal Confidentiality of Alcohol and Drug Abuse Patient Records regulations: The Federal rules restrict any use of the information to criminally investigate or prosecute any alcohol or drug abuse patient.[facility] HospitalIn the event this information is protected by the Federal Confidentiality of Alcohol and Drug Abuse Patient Records regulations: The Federal rules restrict any use of the information to criminally investigate or prosecute any alcohol or drug abuse patient.[facility] HospitalIn the event this information is protected by the Federal Confidentiality of Alcohol and Drug Abuse Patient Records regulations: The Federal rules restrict any use of the information to criminally investigate or prosecute any alcohol or drug abuse patient.[facility] HospitalIn the event this information is protected by the Federal Confidentiality of Alcohol and Drug Abuse Patient Records regulations: The Federal rules restrict any use of the information to criminally investigate or prosecute any alcohol or drug abuse patient.[facility] HospitalIn the event this information is protected by the Federal Confidentiality of Alcohol and Drug Abuse Patient Records regulations: The Federal rules restrict any use of the information to criminally investigate or prosecute any alcohol or drug abuse patient.[facility] HospitalIn the event this information is protected by the Federal Confidentiality of Alcohol and Drug Abuse Patient Records regulations: The Federal rules restrict any use of the information to criminally investigate or prosecute any alcohol or drug abuse patient.[facility] HospitalIn the event this information is protected by the Federal Confidentiality of Alcohol and Drug Abuse Patient Records regulations: The Federal rules restrict any use of the information to criminally investigate or prosecute any alcohol or drug abuse patient.[facility] HospitalIn the event this information is protected by the Federal Confidentiality of Alcohol and Drug Abuse Patient Records regulations: The Federal rules restrict any use of the information to criminally investigate or prosecute any alcohol or drug abuse patient.[facility] HospitalIn the event this information is protected by the Federal Confidentiality of Alcohol and Drug Abuse Patient Records regulations: The Federal rules restrict any use of the information to criminally investigate or prosecute any alcohol or drug abuse patient.[facility] HospitalIn the event this information is protected by the Federal Confidentiality of Alcohol and Drug Abuse Patient Records regulations: The Federal rules restrict any use of the information to criminally investigate or prosecute any alcohol or drug abuse patient.[facility] HospitalIn the event this information is protected by the Federal Confidentiality of Alcohol and Drug Abuse Patient Records regulations: The Federal rules restrict any use of the information to criminally investigate or prosecute any alcohol or drug abuse patient.[facility] HospitalIn the event this information is protected by the Federal Confidentiality of Alcohol and Drug Abuse Patient Records regulations: The Federal rules restrict any use of the information to criminally investigate or prosecute any alcohol or drug abuse patient.[facility] HospitalIn the event this information is protected by the Federal Confidentiality of Alcohol and Drug Abuse Patient Records regulations: The Federal rules restrict any use of the information to criminally investigate or prosecute any alcohol or drug abuse patient.[facility] HospitalIn the event this information is protected by the Federal Confidentiality of Alcohol and Drug Abuse Patient Records regulations: The Federal rules restrict any use of the information to criminally investigate or prosecute any alcohol or drug abuse patient.[facility] HospitalIn the event this information is protected by the Federal Confidentiality of Alcohol and Drug Abuse Patient Records regulations: The Federal rules restrict any use of the information to criminally investigate or prosecute any alcohol or drug abuse patient.[facility] HospitalIn the event this information is protected by the Federal Confidentiality of Alcohol and Drug Abuse Patient Records regulations: The Federal rules restrict any use of the information to criminally investigate or prosecute any alcohol or drug abuse patient.[facility] HospitalIn the event this information is protected by the Federal Confidentiality of Alcohol and Drug Abuse Patient Records regulations: The Federal rules restrict any use of the information to criminally investigate or prosecute any alcohol or drug abuse patient.[facility] HospitalIn the event this information is protected by the Federal Confidentiality of Alcohol and Drug Abuse Patient Records regulations: The Federal rules restrict any use of the information to criminally investigate or prosecute any alcohol or drug abuse patient.[facility] HospitalIn the event this information is protected by the Federal Confidentiality of Alcohol and Drug Abuse Patient Records regulations: The Federal rules restrict any use of the information to criminally investigate or prosecute any alcohol or drug abuse patient.[facility] HospitalIn the event this information is protected by the Federal Confidentiality of Alcohol and Drug Abuse Patient Records regulations: The Federal rules restrict any use of the information to criminally investigate or prosecute any alcohol or drug abuse patient.[facility] HospitalIn the event this information is protected by the Federal Confidentiality of Alcohol and Drug Abuse Patient Records regulations: The Federal rules restrict any use of the information to criminally investigate or prosecute any alcohol or drug abuse patient.[facility] HospitalIn the event this information is protected by the Federal Confidentiality of Alcohol and Drug Abuse Patient Records regulations: The Federal rules restrict any use of the information to criminally investigate or prosecute any alcohol or drug abuse patient.[facility] HospitalIn the event this information is protected by the Federal Confidentiality of Alcohol and Drug Abuse Patient Records regulations: The Federal rules restrict any use of the information to criminally investigate or prosecute any alcohol or drug abuse patient.[facility] HospitalIn the event this information is protected by the Federal Confidentiality of Alcohol and Drug Abuse Patient Records regulations: The Federal rules restrict any use of the information to criminally investigate or prosecute any alcohol or drug abuse patient.[facility] HospitalIn the event this information is protected by the Federal Confidentiality of Alcohol and Drug Abuse Patient Records regulations: The Federal rules restrict any use of the information to criminally investigate or prosecute any alcohol or drug abuse patient.[facility] HospitalIn the event this information is protected by the Federal Confidentiality of Alcohol and Drug Abuse Patient Records regulations: The Federal rules restrict any use of the information to criminally investigate or prosecute any alcohol or drug abuse patient.[facility] HospitalIn the event this information is protected by the Federal Confidentiality of Alcohol and Drug Abuse Patient Records regulations: The Federal rules restrict any use of the information to criminally investigate or prosecute any alcohol or drug abuse patient.[facility] HospitalIn the event this information is protected by the Federal Confidentiality of Alcohol and Drug Abuse Patient Records regulations: The Federal rules restrict any use of the information to criminally investigate or prosecute any alcohol or drug abuse patient.[facility] HospitalIn the event this information is protected by the Federal Confidentiality of Alcohol and Drug Abuse Patient Records regulations: The Federal rules restrict any use of the information to criminally investigate or prosecute any alcohol or drug abuse patient.[facility] HospitalIn the event this information is protected by the Federal Confidentiality of Alcohol and Drug Abuse Patient Records regulations: The Federal rules restrict any use of the information to criminally investigate or prosecute any alcohol or drug abuse patient.[facility] HospitalIn the event this information is protected by the Federal Confidentiality of Alcohol and Drug Abuse Patient Records regulations: The Federal rules restrict any use of the information to criminally investigate or prosecute any alcohol or drug abuse patient.[facility] HospitalIn the event this information is protected by the Federal Confidentiality of Alcohol and Drug Abuse Patient Records regulations: The Federal rules restrict any use of the information to criminally investigate or prosecute any alcohol or drug abuse patient.[facility] HospitalIn the event this information is protected by the Federal Confidentiality of Alcohol and Drug Abuse Patient Records regulations: The Federal rules restrict any use of the information to criminally investigate or prosecute any alcohol or drug abuse patient.[facility] HospitalIn the event this information is protected by the Federal Confidentiality of Alcohol and Drug Abuse Patient Records regulations: The Federal rules restrict any use of the information to criminally investigate or prosecute any alcohol or drug abuse patient.[facility] HospitalIn the event this information is protected by the Federal Confidentiality of Alcohol and Drug Abuse Patient Records regulations: The Federal rules restrict any use of the information to criminally investigate or prosecute any alcohol or drug abuse patient.[facility] HospitalIn the event this information is protected by the Federal Confidentiality of Alcohol and Drug Abuse Patient Records regulations: The Federal rules restrict any use of the information to criminally investigate or prosecute any alcohol or drug abuse patient.[facility] HospitalIn the event this information is protected by the Federal Confidentiality of Alcohol and Drug Abuse Patient Records regulations: The Federal rules restrict any use of the information to criminally investigate or prosecute any alcohol or drug abuse patient.[facility] HospitalIn the event this information is protected by the Federal Confidentiality of Alcohol and Drug Abuse Patient Records regulations: The Federal rules restrict any use of the information to criminally investigate or prosecute any alcohol or drug abuse patient.[facility] HospitalIn the event this information is protected by the Federal Confidentiality of Alcohol and Drug Abuse Patient Records regulations: The Federal rules restrict any use of the information to criminally investigate or prosecute any alcohol or drug abuse patient.[facility] HospitalIn the event this information is protected by the Federal Confidentiality of Alcohol and Drug Abuse Patient Records regulations: The Federal rules restrict any use of the information to criminally investigate or prosecute any alcohol or drug abuse patient.[facility] HospitalIn the event this information is protected by the Federal Confidentiality of Alcohol and Drug Abuse Patient Records regulations: The Federal rules restrict any use of the information to criminally investigate or prosecute any alcohol or drug abuse patient.[facility] HospitalIn the event this information is protected by the Federal Confidentiality of Alcohol and Drug Abuse Patient Records regulations: The Federal rules restrict any use of the information to criminally investigate or prosecute any alcohol or drug abuse patient.[facility] HospitalIn the event this information is protected by the Federal Confidentiality of Alcohol and Drug Abuse Patient Records regulations: The Federal rules restrict any use of the information to criminally investigate or prosecute any alcohol or drug abuse patient.[facility] HospitalIn the event this information is protected by the Federal Confidentiality of Alcohol and Drug Abuse Patient Records regulations: The Federal rules restrict any use of the information to criminally investigate or prosecute any alcohol or drug abuse patient.[facility] HospitalIn the event this information is protected by the Federal Confidentiality of Alcohol and Drug Abuse Patient Records regulations: The Federal rules restrict any use of the information to criminally investigate or prosecute any alcohol or drug abuse patient.[facility] HospitalIn the event this information is protected by the Federal Confidentiality of Alcohol and Drug Abuse Patient Records regulations: The Federal rules restrict any use of the information to criminally investigate or prosecute any alcohol or drug abuse patient.[facility] HospitalIn the event this information is protected by the Federal Confidentiality of Alcohol and Drug Abuse Patient Records regulations: The Federal rules restrict any use of the information to criminally investigate or prosecute any alcohol or drug abuse patient.[facility] HospitalIn the event this information is protected by the Federal Confidentiality of Alcohol and Drug Abuse Patient Records regulations: The Federal rules restrict any use of the information to criminally investigate or prosecute any alcohol or drug abuse patient.[facility] HospitalIn the event this information is protected by the Federal Confidentiality of Alcohol and Drug Abuse Patient Records regulations: The Federal rules restrict any use of the information to criminally investigate or prosecute any alcohol or drug abuse patient.[facility] HospitalIn the event this information is protected by the Federal Confidentiality of Alcohol and Drug Abuse Patient Records regulations: The Federal rules restrict any use of the information to criminally investigate or prosecute any alcohol or drug abuse patient.[facility] HospitalIn the event this information is protected by the Federal Confidentiality of Alcohol and Drug Abuse Patient Records regulations: The Federal rules restrict any use of the information to criminally investigate or prosecute any alcohol or drug abuse patient.[facility] HospitalIn the event this information is protected by the Federal Confidentiality of Alcohol and Drug Abuse Patient Records regulations: The Federal rules restrict any use of the information to criminally investigate or prosecute any alcohol or drug abuse patient.[facility] HospitalIn the event this information is protected by the Federal Confidentiality of Alcohol and Drug Abuse Patient Records regulations: The Federal rules restrict any use of the information to criminally investigate or prosecute any alcohol or drug abuse patient.[facility] HospitalIn the event this information is protected by the Federal Confidentiality of Alcohol and Drug Abuse Patient Records regulations: The Federal rules restrict any use of the information to criminally investigate or prosecute any alcohol or drug abuse patient.[facility] HospitalIn the event this information is protected by the Federal Confidentiality of Alcohol and Drug Abuse Patient Records regulations: The Federal rules restrict any use of the information to criminally investigate or prosecute any alcohol or drug abuse patient.[facility] HospitalIn the event this information is protected by the Federal Confidentiality of Alcohol and Drug Abuse Patient Records regulations: The Federal rules restrict any use of the information to criminally investigate or prosecute any alcohol or drug abuse patient.[facility] HospitalIn the event this information is protected by the Federal Confidentiality of Alcohol and Drug Abuse Patient Records regulations: The Federal rules restrict any use of the information to criminally investigate or prosecute any alcohol or drug abuse patient.[facility] HospitalIn the event this information is protected by the Federal Confidentiality of Alcohol and Drug Abuse Patient Records regulations: The Federal rules restrict any use of the information to criminally investigate or prosecute any alcohol or drug abuse patient.[facility] HospitalIn the event this information is protected by the Federal Confidentiality of Alcohol and Drug Abuse Patient Records regulations: The Federal rules restrict any use of the information to criminally investigate or prosecute any alcohol or drug abuse patient.[facility] HospitalIn the event this information is protected by the Federal Confidentiality of Alcohol and Drug Abuse Patient Records regulations: The Federal rules restrict any use of the information to criminally investigate or prosecute any alcohol or drug abuse patient.[facility] HospitalIn the event this information is protected by the Federal Confidentiality of Alcohol and Drug Abuse Patient Records regulations: The Federal rules restrict any use of the information to criminally investigate or prosecute any alcohol or drug abuse patient.[facility] HospitalIn the event this information is protected by the Federal Confidentiality of Alcohol and Drug Abuse Patient Records regulations: The Federal rules restrict any use of the information to criminally investigate or prosecute any alcohol or drug abuse patient.[facility] HospitalIn the event this information is protected by the Federal Confidentiality of Alcohol and Drug Abuse Patient Records regulations: The Federal rules restrict any use of the information to criminally investigate or prosecute any alcohol or drug abuse patient.[facility] HospitalIn the event this information is protected by the Federal Confidentiality of Alcohol and Drug Abuse Patient Records regulations: The Federal rules restrict any use of the information to criminally investigate or prosecute any alcohol or drug abuse patient.[facility] HospitalIn the event this information is protected by the Federal Confidentiality of Alcohol and Drug Abuse Patient Records regulations: The Federal rules restrict any use of the information to criminally investigate or prosecute any alcohol or drug abuse patient.[facility] HospitalIn the event this information is protected by the Federal Confidentiality of Alcohol and Drug Abuse Patient Records regulations: The Federal rules restrict any use of the information to criminally investigate or prosecute any alcohol or drug abuse patient.[facility] HospitalIn the event this information is protected by the Federal Confidentiality of Alcohol and Drug Abuse Patient Records regulations: The Federal rules restrict any use of the information to criminally investigate or prosecute any alcohol or drug abuse patient.[facility] HospitalIn the event this information is protected by the Federal Confidentiality of Alcohol and Drug Abuse Patient Records regulations: The Federal rules restrict any use of the information to criminally investigate or prosecute any alcohol or drug abuse patient.[facility] HospitalIn the event this information is protected by the Federal Confidentiality of Alcohol and Drug Abuse Patient Records regulations: The Federal rules restrict any use of the information to criminally investigate or prosecute any alcohol or drug abuse patient.[facility] HospitalIn the event this information is protected by the Federal Confidentiality of Alcohol and Drug Abuse Patient Records regulations: The Federal rules restrict any use of the information to criminally investigate or prosecute any alcohol or drug abuse patient.[facility] HospitalIn the event this information is protected by the Federal Confidentiality of Alcohol and Drug Abuse Patient Records regulations: The Federal rules restrict any use of the information to criminally investigate or prosecute any alcohol or drug abuse patient.[facility] HospitalIn the event this information is protected by the Federal Confidentiality of Alcohol and Drug Abuse Patient Records regulations: The Federal rules restrict any use of the information to criminally investigate or prosecute any alcohol or drug abuse patient.[facility] HospitalIn the event this information is protected by the Federal Confidentiality of Alcohol and Drug Abuse Patient Records regulations: The Federal rules restrict any use of the information to criminally investigate or prosecute any alcohol or drug abuse patient.[facility] HospitalIn the event this information is protected by the Federal Confidentiality of Alcohol and Drug Abuse Patient Records regulations: The Federal rules restrict any use of the information to criminally investigate or prosecute any alcohol or drug abuse patient.[facility] HospitalIn the event this information is protected by the Federal Confidentiality of Alcohol and Drug Abuse Patient Records regulations: The Federal rules restrict any use of the information to criminally investigate or prosecute any alcohol or drug abuse patient.[facility] HospitalIn the event this information is protected by the Federal Confidentiality of Alcohol and Drug Abuse Patient Records regulations: The Federal rules restrict any use of the information to criminally investigate or prosecute any alcohol or drug abuse patient.[facility] HospitalIn the event this information is protected by the Federal Confidentiality of Alcohol and Drug Abuse Patient Records regulations: The Federal rules restrict any use of the information to criminally investigate or prosecute any alcohol or drug abuse patient.[facility] HospitalIn the event this information is protected by the Federal Confidentiality of Alcohol and Drug Abuse Patient Records regulations: The Federal rules restrict any use of the information to criminally investigate or prosecute any alcohol or drug abuse patient.[facility] HospitalIn the event this information is protected by the Federal Confidentiality of Alcohol and Drug Abuse Patient Records regulations: The Federal rules restrict any use of the information to criminally investigate or prosecute any alcohol or drug abuse patient.[facility] HospitalIn the event this information is protected by the Federal Confidentiality of Alcohol and Drug Abuse Patient Records regulations: The Federal rules restrict any use of the information to criminally investigate or prosecute any alcohol or drug abuse patient.[facility] HospitalIn the event this information is protected by the Federal Confidentiality of Alcohol and Drug Abuse Patient Records regulations: The Federal rules restrict any use of the information to criminally investigate or prosecute any alcohol or drug abuse patient.[facility] HospitalIn the event this information is protected by the Federal Confidentiality of Alcohol and Drug Abuse Patient Records regulations: The Federal rules restrict any use of the information to criminally investigate or prosecute any alcohol or drug abuse patient.[facility] HospitalIn the event this information is protected by the Federal Confidentiality of Alcohol and Drug Abuse Patient Records regulations: The Federal rules restrict any use of the information to criminally investigate or prosecute any alcohol or drug abuse patient.[facility] HospitalIn the event this information is protected by the Federal Confidentiality of Alcohol and Drug Abuse Patient Records regulations: The Federal rules restrict any use of the information to criminally investigate or prosecute any alcohol or drug abuse patient.[facility] HospitalIn the event this information is protected by the Federal Confidentiality of Alcohol and Drug Abuse Patient Records regulations: The Federal rules restrict any use of the information to criminally investigate or prosecute any alcohol or drug abuse patient.[facility] HospitalIn the event this information is protected by the Federal Confidentiality of Alcohol and Drug Abuse Patient Records regulations: The Federal rules restrict any use of the information to criminally investigate or prosecute any alcohol or drug abuse patient.[facility] HospitalIn the event this information is protected by the Federal Confidentiality of Alcohol and Drug Abuse Patient Records regulations: The Federal rules restrict any use of the information to criminally investigate or prosecute any alcohol or drug abuse patient.[facility] HospitalIn the event this information is protected by the Federal Confidentiality of Alcohol and Drug Abuse Patient Records regulations: The Federal rules restrict any use of the information to criminally investigate or prosecute any alcohol or drug abuse patient.[facility] HospitalIn the event this information is protected by the Federal Confidentiality of Alcohol and Drug Abuse Patient Records regulations: The Federal rules restrict any use of the information to criminally investigate or prosecute any alcohol or drug abuse patient.[facility] HospitalIn the event this information is protected by the Federal Confidentiality of Alcohol and Drug Abuse Patient Records regulations: The Federal rules restrict any use of the information to criminally investigate or prosecute any alcohol or drug abuse patient.[facility] HospitalIn the event this information is protected by the Federal Confidentiality of Alcohol and Drug Abuse Patient Records regulations: The Federal rules restrict any use of the information to criminally investigate or prosecute any alcohol or drug abuse patient.[facility] HospitalIn the event this information is protected by the Federal Confidentiality of Alcohol and Drug Abuse Patient Records regulations: The Federal rules restrict any use of the information to criminally investigate or prosecute any alcohol or drug abuse patient.[facility] HospitalIn the event this information is protected by the Federal Confidentiality of Alcohol and Drug Abuse Patient Records regulations: The Federal rules restrict any use of the information to criminally investigate or prosecute any alcohol or drug abuse patient.[facility] HospitalIn the event this information is protected by the Federal Confidentiality of Alcohol and Drug Abuse Patient Records regulations: The Federal rules restrict any use of the information to criminally investigate or prosecute any alcohol or drug abuse patient.[facility] HospitalIn the event this information is protected by the Federal Confidentiality of Alcohol and Drug Abuse Patient Records regulations: The Federal rules restrict any use of the information to criminally investigate or prosecute any alcohol or drug abuse patient.[facility] HospitalIn the event this information is protected by the Federal Confidentiality of Alcohol and Drug Abuse Patient Records regulations: The Federal rules restrict any use of the information to criminally investigate or prosecute any alcohol or drug abuse patient.[facility] HospitalIn the event this information is protected by the Federal Confidentiality of Alcohol and Drug Abuse Patient Records regulations: The Federal rules restrict any use of the information to criminally investigate or prosecute any alcohol or drug abuse patient.[facility] HospitalIn the event this information is protected by the Federal Confidentiality of Alcohol and Drug Abuse Patient Records regulations: The Federal rules restrict any use of the information to criminally investigate or prosecute any alcohol or drug abuse patient.[facility] Reason for Visit (unrecogniz ed section and content) Reason Onset Date Comments [facility] - Medication Refill 08/09/2021 Aubagio Reason Comments Medication Question Reason Comments Kesim[facility] FDO Reason Onset Date Comments [facility] - Medication Refill 11/06/2021 Kesimpta Reason Onset Date Comments [facility] - Discontinuation Of Therapy 11/08 Aubagio Reason Comments Established Patient Follow-Up Reason Onset Date Comments [facility] - Medication Refill 03/05/2022 Kesimpta Reason Comments Medication Preauthorization Modafinil 20 0 mg. Reason Onset Date Comments [facility] - Medication Refill 07/15/2022 Kesimpta Reason Comments Results Reason Comments Established Patient Specialty Diagnoses / Procedures Referred By Contac t Referred To Contact Endocrinology Diagnoses Type 2 diabetes mellitus with other specified complication, without long-term current use of insulin (HCC) Procedures CONSULT TO ENDOCRINOLOGY OFFICE/OUTPATIENT NEW HIGH MDM 60-74 MINUTES Bill Woods PA-C [id number] [place] [address] Referral ID Status Reason Start Date Expiration Date Visits Requested Visits Authorized [id number] Pending Review PCP Requested Referral 07/29/2022 07/29/2023 1 1 Reason Comments Results Reason Onset Date Comments [facility] - Medication Refill 09/23/2022 Kesimpta Reason Comments [facility] Reason Comments New Patient Evaluation Medication Update Reason Comments Symptoms Reason Comments Orders Reason Onset Date Comments [facility] - Medication Refill 11/24/2022 Kesimpta Reason Comments Established Patient Reason Comments Orders Speech Therapy Reason Comments Appointment Reason Comments Follow Up Medication Update Reason Comments Medication Problem Reason Onset Date Comments [facility] - Medication Refill 12/19/2022 Kesimpta Reason Comments Returning Patient's Call Reason Comments Established Patient Follow Up Reason Onset Date Comments [facility] - Medication Refill 01/14/2023 Kesimpta Reason Comments New Patient Sent over by [email or web address]. Hx neck surgery Mar 02, 2016. Neck pain X since 2015, the surgery. Mid back pain X 1 year. Specialty Diagnoses / Procedures Referred By Louise mayo Referred To Contact [facility] Diagnoses 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 Procedures [facility]SULT TO [facility] OFFICE/OUTPATIENT [facility] 60-74 MINUTES Bill Woods PA-C [address] [id number] Referral ID Status Reason Start Date Expiration Date V isits Requested Visits Authorized [id number] Closed PCP Requested Referral 08/27/2022 08/27/2023 1 1 Reason Comments Patient Update Reason Comments New Patient Evaluation Specialty Diagnoses / Procedures Referred By Louise mayo Referred To Contact Diagnoses Sleep apnea, unspecified type Procedures CONSULT TO SLEEP MEDICINE - ADULT OFFICE/OUTPATIENT [facility] 60-74 MINUTES Bill Woods PA-C [address] [id number] Referral ID Status Reason Start Date Expiration Date Visits Requested Visits Authorized [id number] Pending Review PCP Requested Referral 12/03/2022 12/03/2023 1 1 Reason Comments New Patient Specialty Diagnoses / Procedures Referred By Louise mayo Referred To Contact Dermatology Diagnoses Lesion of skin of face Skin sore Procedures CONSULT TO DERMATOLOGY OFFICE/OUTPATIENT [facility] 60-74 MINUTES Bill Woods PA-C [address] [id number] Referral ID Status Reason Start Date Expiration Date V isits Requested Visits Authorized [id number] Closed PCP Requested Referral 01/14/2023 01/14/2024 1 1 Reason Comments Refill Request Reason Comments Consult Reason Comments Patient Question Reason Comments Referral Information Outcome of NMSS Ref erral Reason Onset Date Comments SPP Neurology - Medication Refill 02/13/2023 Kesimpta Reason Comments Follow Up Specialty Diagnoses / Procedures Referred By Contac t Referred To Contact MR IMAGING Diagnoses Multiple sclerosis (HCC) Procedures MRI BRAIN WO/W IVCON MRI BRAIN BRAIN STEM W/O W/CONTRAST MATERIAL Bill Woods PA-C [address] [place] [address] Mr Imaging [place] [address] Referral ID Status Reason Start Date Expiration Date V isits Requested Visits Authorized [id number] Closed Auto-Generate d Referral 10/02/2021 11/01/2022 1 1 Reason Onset Date Comments Refill Request 03/04/2023 Reason Comments Refill Request Pt is requesting an early refill on her Modafinil to be picked up from pharmacy on 03/10/23 leaving state Reason Comments Return Call Request Reason Comments Patient Request For Janay 3 Reason Comments Ozempic Denial Reason Comments Medication Update 175 Established Patient Reason Onset Date Comments SPP Neurology - Medication Refill 03/18/2023 Kesimpta Reason Comments Follow Up Medication Update Specialty Diagnoses / Procedures Referred By Contac t Referred To Contact Pain Management / PAIN MANAGEMENT Diagnoses Myofascial pain Myofascial neck pain Tight unbalanced muscles TPI Procedures TRIGGER POINT INJECTION MULTI 3+ MUSCLE GRP TRIGGER POINT INJECTION Heather Davis MD [address] [place] [address] Heather Davis MD [address] [place] [address] Referral ID Status Reason Start Date Expiration Date Visits Re quested Visits Authorized [id number] Closed 04/03/2023 07/02/2023 1 1 Reason Comments Established Patient Medication Update Specialty Diagnoses / Procedures Referred By Contac t Referred To Contact Pain Management / PAIN MANAGEMENT Diagnoses Myofascial pain Abnormal posture Abnormal increased muscle tightness tpi Procedures TRIGGER POINT INJECTION MULTI 3+ MUSCLE GRP TRIGGER POINT INJECTION Heather Davis MD [address] [place] [address] Heather Davis MD [address] [place] [address] Referral ID Status Reason Start Date Expiration Date Visits Re quested Visits Authorized [id number] Closed 05/29/2023 04/26/2024 1 1 Reason Onset Date Comments Refill Request 07/09/2023 Reason Onset Date Comments SPP Neurology - Medication Refill 07/22/2023 Kesimpta Specialty Diagnoses / Procedures Referred By Contac t Referred To Contact MR IMAGING Diagnoses Chronic midline low back pain without sciatica Procedures MRI LUMBAR SPINE WO IVCON MRI SPINAL CANAL LUMBAR W/O CONTRAST MATERIAL Meka Webb MD [address] [place] [address] Mr [facility] [place] [address] Referral ID Status Reason Start Date Expiration Date V isits Requested Visits Authorized [id number] Closed Auto-Generate d Referral 04/13/2023 05/12/2024 1 1 Reason Comments Medication Problem Symptoms Reason Comments Established Patient Medication Update Specialty Diagnoses / Procedures Referred By Contcarmelo t Referred To Contact Pain Management / PAIN MANAGEMENT Diagnoses Myalgia, other site Other chronic pain Low back pain, unspecified Cervicalgia Multiple sclerosis trigger point lower back and neck myofascial pain Procedures TRIGGER POINT INJECTION MULTI 3+ MUSCLE GRP TRIGGER POINT INJECTION Heather Davis MD [address] [place] [address] Heather Davis MD [address] [place] [address] Referral ID Status Reason Start Date Expiration Date Visits Re quested Visits Authorized [id number] Closed 08/11/2023 11/09/2023 1 1 Reason Comments Symptoms Slurred speech Reason Comments type 2 diabetes Reason Comments Orders [facility] order Reason Onset Date Comments SPP Neurology - Medication Refill 08/24/2023 Kesimpta Reason Onset Date Comments Refill Request 08/28/2023 Reason Comments Patient Update Pt calling to follow up with her Demian with Coordinator Reason Comments Patient Question Patient has MS relat ed questions Reason Comments DWO Form Specialty Diagnoses / Procedures Referred By Contac t Referred To Contact MR IMAGING Diagnoses Thoracic myelopathy History of multiple sclerosis (HCC) Procedures MRI THORACIC SPINE WO/W IVCON MRI SPINAL CANAL THORACIC W/O & W/CONTR MATRL Meka Webb MD [address] [place] [address] Mr Imaging [place] [address] Referral ID Status Reason Start Date Expiration Date V isits Requested Visits Authorized [id number] Closed Auto-Generate d Referral 09/15/2023 10/14/2024 1 1 Specialty Diagnoses / Procedures Referred By Contac t Referred To Contact Pain Management / PAIN MANAGEMENT Diagnoses Multiple sclerosis Myalgia, other site tpi Procedures TRIGGER POINT INJECTION MULTI 3+ MUSCLE GRP TRIGGER POINT INJECTION muliple areas leg pain Heather Davis MD [address] [place] [address] Heather Davis MD [address] [place] [address] Referral ID Status Reason Start Date Expiration Date Visits Re quested Visits Authorized [id number] Closed 08/24/2023 04/26/2024 1 1 Reason Comments Lab Orders Reason Comments eye exam records Reason Comments Blurred Vision Both Eyes Floaters Both Eyes Reason Onset Date Comments Refill Request 11/24/2023 Reason Comments Back Pain New Patient Specialty Diagnoses / Procedures Referred By Contac t Referred To Contact Diagnoses Thoracic myelopathy Procedures CONSULT TO SPINE SURGERY OFFICE/OUTPATIENT NEW HIGH MDM 60 MINUTES Meka Webb MD [address] [place] [address] Referral ID Status Reason Start Date Expiration Date V isits Requested Visits Authorized [id number] Closed PCP Requested Referral 10/28/2023 10/27/2024 1 1 Specialty Diagnoses / Procedures Referred By Contac t Referred To Contact CT IMAGING Diagnoses Thoracic myelopathy Procedures CT THORACIC SPINE WO IVCON CT THORACIC SPINE W/O CONTRAST MATERIAL Javier Rogers MD [address] [place] [address] Ct Imaging [place] [address] Referral ID Status Reason Start Date Expiration Date V isits Requested Visits Authorized [id number] Closed Auto-Generate d Referral 11/27/2023 12/26/2024 1 1 Specialty Diagnoses / Procedures Referred By Contac t Referred To Contact Pain Management / PAIN MANAGEMENT Diagnoses Myofascial pain Other chronic pain Myofascial pain syndrome of lumbar spine TPI - 40 mins - medication encounter, status update, and TPIs Procedures TRIGGER POINT INJECTION MULTI 3+ MUSCLE GRP TRIGGER POINT INJECTION Heather Davis MD [address] [place] [address] Heather Davis MD [address] [place] [address] Referral ID Status Reason Start Date Expiration Date Visits Re quested Visits Authorized [id number] Closed 11/16/2023 04/26/2024 1 1 Reason Comments New Patient Thoracic stenosis Reason Comments Preparations For Surgery T10-T11 laminec crissy, L3-4 laminectomy Reason Comments Preparations For Surgery Anticoagulants Reason Comments Preparations For Surgery Anti-coagulant instructions Reason Comments Results MRSA Reason Comments Results Notified patient of +MRSA results. Explained to patient that Dr. Mackenzie will tx her with prophylactic antibiotics. Patient voiced understanding. Jazlyn Bermudez LPN Reason Comments Radiology MRI Specialty Diagnoses / Procedures Referred By Contac t Referred To Contact MR IMAGING Diagnoses Multiple sclerosis (HCC) Procedures MRI ORBIT WO/W IVCON MRI ORBIT FACE & NECK W/O & W/CONTRAST Jake Gay MD, PhD [address] [place] [address] Mr Imaging [place] [address] Referral ID Status Reason Start Date Expiration Date V isits Requested Visits Authorized [id number] Closed Auto-Generate d Referral 12/05/2022 01/04/2024 1 1 Reason Comments Returning Patient's Call Returned call t o patient. Left message with direct phone number to call back. Jazlyn Bermudez LPN Reason Comments Refill Request Change in Oxycodone instructions Reason Comments Patient Question Oxycodone-change in dose Reason Comments Orders Oxycodone 5 mg Q 4hr s Reason Comments Post Op Sx 01/19-laminectomy Reason Comments Established Patient Wound check Reason Comments Returning Patient's Call Notified patien t that refill on Oxycodone was sent to [facility]. Jazlyn Bremudez LPN Reason Comments Established Patient Follow-Up Reason Onset Date Comments Refill Request 03/04/2024 Reason Comments Pain, Back Reason Comments Patient Question Patient is requestin g a refill on Oxycodone, she has 4 tablets left. Reason Comments Patient Question Patient requesting r efill on Oxycodone. Returned call to patient, and left message notifying her that Dr. Mackenzie sent refill to pharmacy. Jazlyn Bermudez LPN Reason Comments Clinical Chart Notes to DME Reason Comments Medication refill Oxycodone Referral ID Status Reason Start Date Expiration Date Visits Re quested Visits Authorized [id number] Closed 11/10/2023 04/26/2024 1 1 Reason Onset Date Comments Refill Request 04/12/2024 Reason Comments MS Non-exudative ARMD Both Eyes Diabetes Reason Comments Patient Question Oxycodone refill Reason Comments Non-insulin Dependent Diabetes Mellitus Reason Onset Date Comments Refill Request 07/08/2024 Reason Comments Orders [facility] Reason Comments Appointment Call went right to jonna ed leon, left message regarding MyChart message requesting appointment with Bill Woods. Included in message was Ramin number for call back and notification of appt date/time for patient. Reason Comments Appointment lvm for patient to c all so we can get her scheduled for her mris,neuropsychological test and to push her follow up back 1-3 months Reason Onset Date Comments Results 08/01/2024 Reason Comments Patient Update Returning call Reason Comments Appointment lvm for patient to c all so we can move her neuro test to september Reason Comments Established Patient Sx 02/19/2024 Reason Onset Date Comments Refill Request 08/09/2024 Reason Comments Established Patient Follow Up Reason Comments Appointment Left trudi ramirez scheduling Neuropysch testing and follow up in late September/early October respectively. Ramin number included for call back. Reason Comments Nurse Triage Call Reason Comments Patient Update Patient called back to reply to post procedure questions.1. What was your pain score with the painful activity prior to the procedure? Pain score was 7. 2. What is your percentage of pain relief when doing the activities that previously caused you pain? 90% of pain relief 3. What is your pain level today? Pain level today is 1. Reason Comments Pancreatitis S/p stone Reason Onset Date Comments Refill Request 10/04/2024 Reason Comments Visual Changes Both Eyes Reason Comments Established Patient Follow-Up Reason Comments Back Pain Bump in middle of ba ck Care Teams (unrecognized sec tion and content) Product Safety Head Relationship Specialty Start Date End Date Kaylah Sherman MD [facility] [address] [place] [address] PCP - General Internal Medicine 03/28/20 Product Safety Head Relationship Specialty Start Date End Date Kaylah Sherman MD [facility] [address] [place] [address] PCP - General Internal Medicine 03/28/20 Product Safety Head Relationship Specialty Start Date End Date Kaylah Sherman MD [facility] [address] [place] [address]83 PCP - General Internal Medicine 03/28/20 Product Safety Head Relationship Specialty Start Date End Date Kaylah Sherman MD [facility] [address] [place] [address] PCP - General Internal Medicine 03/28/20 Product Safety Head Relationship Specialty Start Date End Date Kaylah Sherman MD [facility] [address] [place] [address]39 PCP - General Internal Medicine 03/28/20 Product Safety Head Relationship Specialty Start Date End Date Kaylah Sherman MD [facility] [address] [place] [address] 387[address] PCP - General Internal Medicine 03/28/20 Carrie, Elias S [address] [place] [address] Health Care Liaison Cardiology 11/15/21 Product Safety Head Relationship Specialty Start Date End Date Kaylah Sherman MD [facility] [address] [place] [address] PCP - General Internal Medicine 03/28/20 Carrie, Elias S [address] [address] Health Care Liaison Cardiology 11/15/21 Product Safety Head Relationship Specialty Start Date End Date Kaylah Sherman MD [facility] [address] [place] [address] PCP - General Internal Medicine 03/28/20 Carrie, Elias S [address] [address] Health Care Liaison Cardiology 11/15/21 Product Safety Head Relationship Specialty Start Date End Date Kaylah Sherman MD [facility] [address] [place] [address] PCP - General Internal Medicine 03/28/20 Carrie, [place] S [address] [place] [address] Health Care Liaison Cardiology 11/15/21 Product Safety Head Relationship Specialty Start Date End Date Kaylah Sherman MD [facility] [address] [place] [address] PCP - General Internal Medicine 03/28/20 Carrie, [place] S [address] [place] [address] Health Care Liaison Cardiology 11/15/21 Product Safety Head Relationship Specialty Start Date End Date Kaylah Sherman MD [facility] [address] [place] [address] PCP - General Internal Medicine 03/28/20 Carrie, [place] S [address] [address] Health Care Liaison Cardiology 11/15/21 Product Safety Head Relationship Specialty Start Date End Date Kaylah Sherman MD [facility] [address] [place] [address] PCP - General Internal Medicine 03/28/20 Carrie, [place] S [address] [address] Health Care Liaison Cardiology 11/15/21 Product Safety Head Relationship Specialty Start Date End Date Kaylah Sherman MD [facility] [address] [place] [address] PCP - General Internal Medicine 03/28/20 Carrie, Elias S [address] [place] [address] Health Care Liaison Cardiology 11/15/21 Product Safety Head Relationship Specialty Start Date End Date Tom Sherman MD [address] [place] [address] PCP - General Internal Medicine 08/06/22 Carrie, [place] S [address] [place] [address] Health Care Liaison Cardiology 11/15/21 Product Safety Head Relationship Specialty Start Date End Date Tom Sherman MD [address] [address] PCP - General Internal Medicine 08/06/22 Carrie, Elias S [address] [place] [address] Health Care Liaison Cardiology 11/15/21 Product Safety Head Relationship Specialty Start Date End Date Tom Sherman MD [address] [place] [address] PCP - General Internal Medicine 08/06/22 Carrie, Elias S [address] [place] [address] Health Care Liaison Cardiology 11/15/21 Product Safety Head Relationship Specialty Start Date End Date Tom Sherman MD [address] [place] [address] PCP - General Internal Medicine 08/06/22 Carrie, [place] S [address] [place] [address] Health Care Liaison Cardiology 11/15/21 Product Safety Head Relationship Specialty Start Date End Date Tom Sherman MD [address] [place] [address] PCP - General Internal Medicine 08/06/22 Carrie, [place] S [address] [place] [address] Health Care Liaison Cardiology 11/15/21 Product Safety Head Relationship Specialty Start Date End Date Tom Sherman MD [address] [place] [address] PCP - General Internal Medicine 08/06/22 Carrie, Elias S [address] [place] [address] Health Care Liaison Cardiology 11/15/21 Product Safety Head Relationship Specialty Start Date End Date Tom Sherman MD [address] [place] [address] PCP - General Internal Medicine 08/06/22 Carrie, [place] S [address] [place] [address] Health Care Liaison Cardiology 11/15/21 Product Safety Head Relationship Specialty Start Date End Date Tom Sherman MD [address] [place] [address] PCP - General Internal Medicine 08/06/22 Carrie, Elias S [address] [place] [address] Health Care Liaison Cardiology 11/15/21 Product Safety Head Relationship Specialty Start Date End Date Tom Sherman MD [address] [place] [address] PCP - General Internal Medicine 08/06/22 11/04/22 Carrie, Elias S [address] [place] [address] Health Care Liaison Cardiology 11/15/21 Product Safety Head Relationship Specialty Start Date End Date Melodie [place] [address] PCP - General 11/05/22 Carrie, Elias S [address] [place] [address] Health Care Liaison Cardiology 11/15/21 Product Safety Head Relationship Specialty Start Date End Date Melodie [place] [address] PCP - General 11/05/22 Carrie, [place] S [address] [place] [address] Health Care Liaison Cardiology 11/15/21 Product Safety Head Relationship Specialty Start Date End Date Melodie [place] [address] PCP - General 11/05/22 Carrie, [place] S [address] [place] [address] Health Care Liaison Cardiology 11/15/21 Product Safety Head Relationship Specialty Start Date End Date Melodie [place] [address] PCP - General 11/05/22 Carrie, Elias S [address] [place] [address] Health Care Liaison Cardiology 11/15/21 Product Safety Head Relationship Specialty Start Date End Date Melod[place] [address] PCP - General 11/05/22 Carrie, Elias S [address] [place] [address] Health Care Liaison Cardiology 11/15/21 Product Safety Head Relationship Specialty Start Date End Date Melod[place] [address] PCP - General 11/05/22 Carrie, Elias S [address] [place] [address] Health Care Liaison Cardiology 11/15/21 Product Safety Head Relationship Specialty Start Date End Date Melodie [place] [address] PCP - General 11/05/22 Carrie, Elias S [address] [place] [address] Health Care Liaison Cardiology 11/15/21 Product Safety Head Relationship Specialty Start Date End Date Melod[place] [address] PCP - General 11/05/22 Carrie, Elias S [address] [place] [address] Health Care Liaison Cardiology 11/15/21 Product Safety Head Relationship Specialty Start Date End Date Melod[place] [address] PCP - General 11/05/22 Carrie, Elias S [address] [place] [address] Health Care Liaison Cardiology 11/15/21 Product Safety Head Relationship Specialty Start Date End Date Melod[place] [address] PCP - General 11/05/22 Carrie, Elias S [address] [place] [address] Health Care Liaison Cardiology 11/15/21 Product Safety Head Relationship Specialty Start Date End Date Melodie [place] [address] PCP - General 11/05/22 Carrie, Elias S [address] [place] [address] Health Care Liaison Cardiology 11/15/21 Product Safety Head Relationship Specialty Start Date End Date Melodie Marina MD [address] [place] [address] PCP - General 11/05/22 Carrie, Elias S [address] [place] [address] Health Care Liaison Cardiology 11/15/21 Product Safety Head Relationship Specialty Start Date End Date Melodie Marina MD [address] [place] [address] PCP - General 11/05/22 [place]isha[place] S [address] [place] [address] Health Care Liaison Cardiology 11/15/21 Product Safety Head Relationship Specialty Start Date End Date Melodie Marina MD [address] [place] [address] PCP - General 11/05/22 Carrie, [place] S [address] [place] [address] Health Care Liaison Cardiology 11/15/21 Product Safety Head Relationship Specialty Start Date End Date Melodie Marina MD [address] [place] [address] PCP - General 11/05/22 Elias Butler MD [address] [place] [address] Health Care Liaison Cardiology 11/15/21 Product Safety Head Relationship Specialty Start Date End Date Melodie Marina MD [address] [place] [address] PCP - General 11/05/22 Elias Butler MD [address] [place] [address] Health Care Liaison Cardiology 11/15/21 Product Safety Head Relationship Specialty Start Date End Date Melodie Marina MD [address] [place] [address] PCP - General 11/05/22 Elias Butler MD [address] [place] [address] Health Care Liaison Cardiology 11/15/21 Product Safety Head Relationship Specialty Start Date End Date Melodie Marina MD [address] [place] [address] PCP - General 11/05/22 Elias Butler MD [address] [place] [address] Health Care Liaison Cardiology 11/15/21 Product Safety Head Relationship Specialty Start Date End Date Melodei Marina MD [address] [place] [address] PCP - General 11/05/22 Elias Butler MD [address] [place] [address] Health Care Liaison Cardiology 11/15/21 Product Safety Head Relationship Specialty Start Date End Date Melodie Marina MD [address] [place] [address] PCP - General 11/05/22 Elias Butler MD [address] [place] [address] Health Care Liaison Cardiology 11/15/21 Product Safety Head Relationship Specialty Start Date End Date Melodie Marina MD [address] [place] [address] PCP - General 11/05/22 Elias Butler MD [address] [place] [address] Health Care Liaison Cardiology 11/15/21 Product Safety Head Relationship Specialty Start Date End Date Melodie Marina MD [address] [place] [address] PCP - General 11/05/22 Elias Butler MD [address] [place] [address] Health Care Liaison Cardiology 11/15/21 Product Safety Head Relationship Specialty Start Date End Date Melodie Marina MD [address] [place] [address] PCP - General 11/05/22 Elias Butler MD [address] [place] [address] Health Care Liaison Cardiology 11/15/21 Product Safety Head Relationship Specialty Start Date End Date Melodie Marina MD [address] [place] [address] PCP - General 11/05/22 Elias Butler MD [address] [place] [address] Health Care Liaison Cardiology 11/15/21 Product Safety Head Relationship Specialty Start Date End Date Melodie Marina MD [address] [place] [address] PCP - General 11/05/22 Elias Butler MD [address] [place] [address] Health Care Liaison Cardiology 11/15/21 Product Safety Head Relationship Specialty Start Date End Date Melodie Marina MD [address] [place] [address] PCP - General 11/05/22 Elias Butler MD [address] [place] [address] Health Care Liaison Cardiology 11/15/21 Product Safety Head Relationship Specialty Start Date End Date Tom Sherman MD [address] [place] [address] PCP - General Internal Medicine 08/06/22 11/04/22 Elias Butler MD [address] [place] [address] Health Care Liaison Cardiology 11/15/21 Product Safety Head Relationship Specialty Start Date End Date Melodie Marina MD [address] [place] [address] PCP - General 11/05/22 Elias Butler MD [address] [place] [address] Health Care Liaison Cardiology 11/15/21 Product Safety Head Relationship Specialty Start Date End Date Melodie Marina MD [address] [place] [address] PCP - General 11/05/22 Elias Butler MD [address] [address] [place] [address] Health Care Liaison Cardiology 11/15/21 Product Safety Head Relationship Specialty Start Date End Date Melodie Marina CNP [address] [facility] [place] [address] PCP - General Family Medicine 03/06/23 Elias Butler MD [address] [place] [address] Health Care Liaison Cardiology 11/15/21 Product Safety Head Relationship Specialty Start Date End Date Melodie Marina CNP [address] [place] [address] PCP - General Family Medicine 03/06/23 Elias Butler MD [address] [address] Health Care Liaison Cardiology 11/15/21 Product Safety Head Relationship Specialty Start Date End Date Melodie Marina CNP [address] [place] [address] PCP - General Family Medicine 03/06/23 Elias Butler MD [address] [address] Health Care Liaison Cardiology 11/15/21 Product Safety Head Relationship Specialty Start Date End Date Melodie Marina CNP [address] [place] [address] PCP - General Family Medicine 03/06/23 Elias Butler MD [address] [facility] [address] [address] Health Care Liaison Cardiology 11/15/21 Product Safety Head Relationship Specialty Start Date End Date Melodie Marina CNP [address] [place] [address] PCP - General Family Medicine 03/06/23 Elias Butler MD [address] [place] [address] Health Care Liaison Cardiology 11/15/21 Product Safety Head Relationship Specialty Start Date End Date Melodie Marina CNP [address] [place] [address] PCP - General Family Medicine 03/06/23 Elias Butler MD [address] [place] [address] Health Care Liaison Cardiology 11/15/21 Product Safety Head Relationship Specialty Start Date End Date Melodie Marina CNP [address] [place] [address] PCP - General Family Medicine 03/06/23 Elias Butler MD [address] [place] [address] Health Care Liaison Cardiology 11/15/21 Product Safety Head Relationship Specialty Start Date End Date Melodie Marina CNP [address] [place] [address] PCP - General Family Medicine 03/06/23 Elias Butler MD [address] [address] Health Care Liaison Cardiology 11/15/21 Product Safety Head Relationship Specialty Start Date End Date Melodie Marina CNP [address] [place] [address] PCP - General Family Medicine 03/06/23 Elias Butler MD [address] [place] [address] Health Care Liaison Cardiology 11/15/21 Product Safety Head Relationship Specialty Start Date End Date Melodie Marina CNP [address] [place] [address] PCP - General Family Medicine 03/06/23 Elias Butler MD [address] [place] [address] Health Care Liaison Cardiology 11/15/21 Product Safety Head Relationship Specialty Start Date End Date Melodie Marina CNP [address] [place] [address] PCP - General Family Medicine 03/06/23 Elias Butler MD [address] [address] Health Care Liaison Cardiology 11/15/21 Product Safety Head Relationship Specialty Start Date End Date Melodie Marina CNP [address] [place] [address] PCP - General Family Medicine 03/06/23 Elias Butler MD [address] [address] Health Care Liaison Cardiology 11/15/21 Product Safety Head Relationship Specialty Start Date End Date Melodie Marina CNP [address] [place] [address] PCP - General Family Medicine 03/06/23 Elias Butler MD [address] [address] Health Care Liaison Cardiology 11/15/21 Product Safety Head Relationship Specialty Start Date End Date Melodie Marina CNP [address] [place] [address] PCP - General Family Medicine 03/06/23 Elias Butler MD [address] [address] Health Care Liaison Cardiology 11/15/21 Product Safety Head Relationship Specialty Start Date End Date Melodie Marina CNP [address] [place] [address] PCP - General Family Medicine 03/06/23 Elias Butler MD [address] [address] Health Care Liaison Cardiology 11/15/21 Product Safety Head Relationship Specialty Start Date End Date Melodie Marina CNP [address] [place] [address] PCP - General Family Medicine 03/06/23 Elias Butler MD [address] [address] Health Care Liaison Cardiology 11/15/21 Product Safety Head Relationship Specialty Start Date End Date Melodie Marina CNP [address] [place] [address] PCP - General Family Medicine 03/06/23 Elias Butler MD [address] [address] Health Care Liaison Cardiology 11/15/21 Product Safety Head Relationship Specialty Start Date End Date Melodie Marina CNP [address] [place] [address] PCP - General Family Medicine 03/06/23 Elias Butler MD [address] [place] [address] Health Care Liaison Cardiology 11/15/21 Product Safety Head Relationship Specialty Start Date End Date Melodie Marina CNP [address] [place] [address] PCP - General Family Medicine 03/06/23 Elias Butler MD [address] [address] Health Care Liaison Cardiology 11/15/21 Product Safety Head Relationship Specialty Start Date End Date Melodie Marina CNP [address] [place] [address] PCP - General Family Medicine 03/06/23 Elias Butler MD [address] [address] Health Care Liaison Cardiology 11/15/21 Product Safety Head Relationship Specialty Start Date End Date Melodie Marina CNP [address] [place] [address] PCP - General Family Medicine 03/06/23 Elias Butler MD [address] [address] Health Care Liaison Cardiology 11/15/21 Product Safety Head Relationship Specialty Start Date End Date Melodie Marina CNP [address] [place] [address] PCP - General Family Medicine 03/06/23 Elias Butler MD [address] [place] [address] Health Care Liaison Cardiology 11/15/21 Product Safety Head Relationship Specialty Start Date End Date Melodie Marina CNP [address] [place] [address] PCP - General Family Medicine 03/06/23 Elias Butler MD [address] [place] [address] Health Care Liaison Cardiology 11/15/21 Product Safety Head Relationship Specialty Start Date End Date Melodie Marina CNP [address] [place] [address] PCP - General Family Medicine 03/06/23 Elias Butler MD [address] [place] [address] Health Care Liaison Cardiology 11/15/21 Product Safety Head Relationship Specialty Start Date End Date Melodie Marina CNP [address] [place] [address] PCP - General Family Medicine 03/06/23 Elias Butler MD [address] [place] [address] Health Care Liaison Cardiology 11/15/21 Product Safety Head Relationship Specialty Start Date End Date Melodie Marina CNP [address] [place] [address] PCP - General Family Medicine 03/06/23 Elias Butler MD [address] [place] [address] Health Care Liaison Cardiology 11/15/21 Rosa Flores AMMONIUM NITRATE CRYSTALLIZER.PUBLIC RELATIONS WRITER [address] [place] [address] Endocrinology 12/29/23 Product Safety Head Relationship Specialty Start Date End Date Melodie Marina CNP [address] [place] [address] PCP - General Family Medicine 03/06/23 Elias Butler MD [address] [place] [address] Health Care Liaison Cardiology 11/15/21 Rosa Flores, AMMONIUM NITRATE CRYSTALLIZER.PUBLIC RELATIONS WRITER [address] [place] [address] Endocrinology 12/29/23 Product Safety Head Relationship Specialty Start Date End Date Melodie MarinaINDIANA [address] [place] [address] PCP - General Family Medicine 03/06/23 Elias Butler MD [address] [place] [address] Health Care Liaison Cardiology 11/15/21 Rosa Flores AMMONIUM NITRATE CRYSTALLIZER.PUBLIC RELATIONS WRITER [address] [place] [address] Endocrinology 12/29/23 Product Safety Head Relationship Specialty Start Date End Date MarinaMelodie riveraINDIANA [address] [facility] [place] [address] PCP - General Family Medicine 03/06/23 Elias Butler MD [address] [place] [address] Health Care Liaison Cardiology 11/15/21 Rosa Flores AMMONIUM NITRATE CRYSTALLIZER.PUBLIC RELATIONS WRITER [address] [place] [address] Endocrinology 12/29/23 Product Safety Head Relationship Specialty Start Date End Date Melodie MarinaINDIANA [address] [facility] [place] [address] PCP - General Family Medicine 03/06/23 Elias Butler MD [address] [place] [address] Health Care Liaison Cardiology 11/15/21 Rosa Flores AMMONIUM NITRATE CRYSTALLIZER.PUBLIC RELATIONS WRITER [address] [place] [address] Endocrinology 12/29/23 Product Safety Head Relationship Specialty Start Date End Date Melodie MarinaINDIANA [address] [facility] [place] [address] PCP - General Family Medicine 03/06/23 Elias Butler MD [address] [place] [address] Health Care Liaison Cardiology 11/15/21 Rosa Flores AMMONIUM NITRATE CRYSTALLIZER.PUBLIC RELATIONS WRITER [address] [place] [address] Endocrinology 12/29/23 Product Safety Head Relationship Specialty Start Date End Date Melodie Marina MD [address] [place] [address] PCP - General 11/05/22 03/05/23 Elias Butler MD [address] [place] [address] Health Care Liaison Cardiology 11/15/21 Product Safety Head Relationship Specialty Start Date End Date Melodie Marina MD [address] [place] [address] PCP - General 11/05/22 03/05/23 Elias Butler MD [address] [facility] [address] [place] [address] Health Care Liaison Cardiology 11/15/21 Product Safety Head Relationship Specialty Start Date End Date Melodie Marina CNP [address] [place] [address] PCP - General Family Medicine 03/06/23 Elias Butler MD [address] [facility] [address] [place] [address] Health Care Liaison Cardiology 11/15/21 Rosa Flores APRN.PUBLIC RELATIONS WRITER [address] [place] [address] Endocrinology 12/29/23 Product Safety Head Relationship Specialty Start Date End Date Melodie Marina CNP [address] [place] [address] PCP - General Family Medicine 03/06/23 Elias Butler MD [address] [place] [address] Health Care Liaison Cardiology 11/15/21 Rosa Flores AMMONIUM NITRATE CRYSTALLIZER.PUBLIC RELATIONS WRITER [address] [place] [address] Endocrinology 12/29/23 Product Safety Head Relationship Specialty Start Date End Date Melodie Marina CNP [address] [place] [address] PCP - General Family Medicine 03/06/23 Elias Butler MD [address] [place] [address] Health Care Liaison Cardiology 11/15/21 Rosa Flores AMMONIUM NITRATE CRYSTALLIZER.PUBLIC RELATIONS WRITER [address] [place] [address] Endocrinology 12/29/23 Product Safety Head Relationship Specialty Start Date End Date Melodie Marina CNP [address] [place] [address] PCP - General Family Medicine 03/06/23 Elias Butler MD [address] [place] [address] Health Care Liaison Cardiology 11/15/21 Rosa Flores AMMONIUM NITRATE CRYSTALLIZER.PUBLIC RELATIONS WRITER [address] [place] [address] Endocrinology 12/29/23 Product Safety Head Relationship Specialty Start Date End Date Melodie Marina CNP [address] [place] [address] PCP - General Family Medicine 03/06/23 Elias Butler MD [address] [place] [address] Health Care Liaison Cardiology 11/15/21 Rosa Flores APRN.PUBLIC RELATIONS WRITER [address] [place] [address] Endocrinology 12/29/23 Product Safety Head Relationship Specialty Start Date End Date Melodie Marina CNP [address] [place] [address] PCP - General Family Medicine 03/06/23 Elias Butler MD [address] [place] [address] Health Care Liaison Cardiology 11/15/21 Rosa Flores AMMONIUM NITRATE CRYSTALLIZER.PUBLIC RELATIONS WRITER [address] [place] [address] Endocrinology 12/29/23 Product Safety Head Relationship Specialty Start Date End Date Melodie Marina CNP [address] [place] [address] PCP - General Family Medicine 03/06/23 Elias Butler MD [address] [place] [address] Health Care Liaison Cardiology 11/15/21 Rosa Flores AMMONIUM NITRATE CRYSTALLIZER.PUBLIC RELATIONS WRITER [address] [place] [address] Endocrinology 12/29/23 Product Safety Head Relationship Specialty Start Date End Date Melodie Marina CNP [address] [place] [address] PCP - General Family Medicine 03/06/23 Elias Butler MD [address] [place] [address] Health Care Liaison Cardiology 11/15/21 Rosa Flores, AMMONIUM NITRATE CRYSTALLIZER.PUBLIC RELATIONS WRITER [address] [place] [address] Endocrinology 12/29/23 Product Safety Head Relationship Specialty Start Date End Date Melodie Marina CNP [address] [place] [address] PCP - General Family Medicine 03/06/23 Elias Butler MD [address] [place] [address] Health Care Liaison Cardiology 11/15/21 Rosa Flores, AMMONIUM NITRATE CRYSTALLIZER.PUBLIC RELATIONS WRITER [address] [place] [address] Endocrinology 12/29/23 Product Safety Head Relationship Specialty Start Date End Date Melodie Marina CNP [address] [facility] [place] [address] PCP - General Family Medicine 03/06/23 Elias Butler MD [address] [place] [address] Health Care Liaison Cardiology 11/15/21 Rosa Flores, AMMONIUM NITRATE CRYSTALLIZER.PUBLIC RELATIONS WRITER [address] [place] [address] Endocrinology 12/29/23 Product Safety Head Relationship Specialty Start Date End Date Melodie Marina CNP [address] [place] [address] PCP - General Family Medicine 03/06/23 Elias Butler MD [address] [place] [address] Health Care Liaison Cardiology 11/15/21 Rosa Flores AMMONIUM NITRATE CRYSTALLIZER.PUBLIC RELATIONS WRITER [address] [place] [address] Endocrinology 12/29/23 Product Safety Head Relationship Specialty Start Date End Date Melodie Marina CNP [address] [place] [address] PCP - General Family Medicine 03/06/23 Elias Butler MD [address] [place] [address] Health Care Liaison Cardiology 11/15/21 Rosa Flores AMMONIUM NITRATE CRYSTALLIZER.PUBLIC RELATIONS WRITER [address] [place] [address] Endocrinology 12/29/23 Product Safety Head Relationship Specialty Start Date End Date Melodie Marina CNP [address] [facility] [place] [address] PCP - General Family Medicine 03/06/23 Elias Butler MD [address] [place] [address] Health Care Liaison Cardiology 11/15/21 Rosa Flores AMMONIUM NITRATE CRYSTALLIZER.PUBLIC RELATIONS WRITER [address] [place] [address] Endocrinology 12/29/23 Product Safety Head Relationship Specialty Start Date End Date Melodie Marina CNP [address] [place] [address] PCP - General Family Medicine 03/06/23 Elias Butler MD [address] [place] [address] Health Care Liaison Cardiology 11/15/21 Rosa Flores AMMONIUM NITRATE CRYSTALLIZER.PUBLIC RELATIONS WRITER [address] [place] [address] Endocrinology 12/29/23 Product Safety Head Relationship Specialty Start Date End Date Melodie Marina CNP [address] [place] [address] PCP - General Family Medicine 03/06/23 Elias Butler MD [address] [place] [address] Health Care Liaison Cardiology 11/15/21 Rosa Flores, AMMONIUM NITRATE CRYSTALLIZER.PUBLIC RELATIONS WRITER [address] [place] [address] Endocrinology 12/29/23 Product Safety Head Relationship Specialty Start Date End Date Melodie MarinaINDIANA [address] [place] [address] PCP - General Family Medicine 03/06/23 Elias Butler MD [address] [place] [address] Health Care Liaison Cardiology 11/15/21 Rosa Flores, AMMONIUM NITRATE CRYSTALLIZER.PUBLIC RELATIONS WRITER [address] [place] [address] Endocrinology 12/29/23 Product Safety Head Relationship Specialty Start Date End Date MarinaMelodie riveraINDIANA [address] [facility] [place] [address] PCP - General Family Medicine 03/06/23 Elias Butler MD [address] [place] [address] Health Care Liaison Cardiology 11/15/21 Rosa Flores AMMONIUM NITRATE CRYSTALLIZER.PUBLIC RELATIONS WRITER [address] [place] [address] Endocrinology 12/29/23 Product Safety Head Relationship Specialty Start Date End Date Melodie MarinaINDIANA [address] [facility] [place] [address] PCP - General Family Medicine 03/06/23 Elias Butler MD [address] [place] [address] Health Care Liaison Cardiology 11/15/21 Rosa Flores AMMONIUM NITRATE CRYSTALLIZER.PUBLIC RELATIONS WRITER [address] [place] [address] Endocrinology 12/29/23 Product Safety Head Relationship Specialty Start Date End Date Melodie MarinaINDIANA [address] [facility] [place] [address] PCP - General Family Medicine 03/06/23 Elias Butler MD [address] [place] [address] Health Care Liaison Cardiology 11/15/21 Rosa Flores AMMONIUM NITRATE CRYSTALLIZER.PUBLIC RELATIONS WRITER [address] [place] [address] Endocrinology 12/29/23 Product Safety Head Relationship Specialty Start Date End Date Melodie MarinaINDIANA [address] [place] [address] PCP - General Family Medicine 03/06/23 Elias Butler MD [address] [place] [address] Health Care Liaison Cardiology 11/15/21 Rosa Flores AMMONIUM NITRATE CRYSTALLIZER.PUBLIC RELATIONS WRITER [address] [place] [address] Endocrinology 12/29/23 Product Safety Head Relationship Specialty Start Date End Date Marina MelodieINDIANA [address] [place] [address] PCP - General Family Medicine 03/06/23 Elias Butler MD [address] [place] [address] Health Care Liaison Cardiology 11/15/21 Rosa Flores AMMONIUM NITRATE CRYSTALLIZER.PUBLIC RELATIONS WRITER [address] [place] [address] Endocrinology 12/29/23 Product Safety Head Relationship Specialty Start Date End Date Melodie MarinaINDIANA [address] [place] [address] PCP - General Family Medicine 03/06/23 Elias Butler MD [address] [place] [address] Health Care Liaison Cardiology 11/15/21 Rosa Flores AMMONIUM NITRATE CRYSTALLIZER.PUBLIC RELATIONS WRITER [address] [place] [address] Endocrinology 12/29/23 Product Safety Head Relationship Specialty Start Date End Date Melodie MarinaINDIANA [address] [place] [address] PCP - General Family Medicine 03/06/23 Elias Butler MD [address] [place] [address] Health Care Liaison Cardiology 11/15/21 Rosa Flores AMMONIUM NITRATE CRYSTALLIZER.PUBLIC RELATIONS WRITER [address] [place] [address] Endocrinology 12/29/23 Product Safety Head Relationship Specialty Start Date End Date Josefina MelodieINDIANA [address] [place] [address] PCP - General Family Medicine 03/06/23 Elias Butler MD [address] [place] [address] Health Care Liaison Cardiology 11/15/21 Rosa Flores AMMONIUM NITRATE CRYSTALLIZER.PUBLIC RELATIONS WRITER [address] [place] [address] Endocrinology 12/29/23 Product Safety Head Relationship Specialty Start Date End Date Melodie Marina CNP [address] [place] [address] PCP - General Family Medicine 03/06/23 Elias Butler MD [address] [place] [address] Health Care Liaison Cardiology 11/15/21 Rosa Flores AMMONIUM NITRATE CRYSTALLIZER.PUBLIC RELATIONS WRITER [address] [place] [address] Endocrinology 12/29/23 Product Safety Head Relationship Specialty Start Date End Date Melodie Marina PUBLIC RELATIONS WRITER [address] [place] [address] PCP - General Family Medicine 03/06/23 Elias Butler MD [address] [place] [address] Health Care Liaison Cardiology 11/15/21 Rosa Flores AMMONIUM NITRATE CRYSTALLIZER.PUBLIC RELATIONS WRITER [address] [place] [address] Endocrinology 12/29/23 Product Safety Head Relationship Specialty Start Date End Date Josefina MelodieINDIANA [address] [place] [address] PCP - General Family Medicine 03/06/23 Elias Butler MD [address] [place] [address] Health Care Liaison Cardiology 11/15/21 Rosa Flores AMMONIUM NITRATE CRYSTALLIZER.PUBLIC RELATIONS WRITER [address] [place] [address] Endocrinology 12/29/23 Product Safety Head Relationship Specialty Start Date End Date Marina MelodieINDIANA [address] [place] [address] PCP - General Family Medicine 03/06/23 Elias Butler MD [address] [place] [address] Health Care Liaison Cardiology 11/15/21 Rosa Flores APRN.PUBLIC RELATIONS WRITER [address] [place] [address] Endocrinology 12/29/23 Product Safety Head Relationship Specialty Start Date End Date Melodie Marina CNP [address] [place] [address] PCP - General Family Medicine 03/06/23 Elias Butler MD [address] [place] [address] Health Care Liaison Cardiology 11/15/21 Rosa Flores AMMONIUM NITRATE CRYSTALLIZER.PUBLIC RELATIONS WRITER [address] [place] [address] Endocrinology 12/29/23 Product Safety Head Relationship Specialty Start Date End Date Melodie Marina CNP [address] [place] [address] PCP - General Family Medicine 03/06/23 Elias Butler MD [address] [facility] [place] [address] Health Care Liaison Cardiology 11/15/21 Rosa Flores AMMONIUM NITRATE CRYSTALLIZER.PUBLIC RELATIONS WRITER [address] [place] [address] Endocrinology 12/29/23 Product Safety Head Relationship Specialty Start Date End Date Melodie Marina CNP [address] [place] [address] PCP - General Family Medicine 03/06/23 Elias Butler MD [address] [place] [address] Health Care Liaison Cardiology 11/15/21 Rsoa Flores AMMONIUM NITRATE CRYSTALLIZER.PUBLIC RELATIONS WRITER [address] [place] [address] Endocrinology 12/29/23 Product Safety Head Relationship Specialty Start Date End Date Melodie Marina CNP [address] [place] [address] PCP - General Family Medicine 03/06/23 Elias Butler MD [address] [place] [address] Health Care Liaison Cardiology 11/15/21 Rosa Flores AMMONIUM NITRATE CRYSTALLIZER.PUBLIC RELATIONS WRITER [address] [place] [address] Endocrinology 12/29/23 Product Safety Head Relationship Specialty Start Date End Date Melodie Marina CNP [address] [place] [address] PCP - General Family Medicine 03/06/23 Elias Butler MD [address] [place] [address] Health Care Liaison Cardiology 11/15/21 Rosa Flores AMMONIUM NITRATE CRYSTALLIZER.PUBLIC RELATIONS WRITER [address] [place] [address] Endocrinology 12/29/23 Product Safety Head Relationship Specialty Start Date End Date Melodie Marina CNP [address] [place] [address] PCP - General Family Medicine 03/06/23 Elias Butler MD [address] [place] [address] Health Care Liaison Cardiology 11/15/21 Rosa Flores AMMONIUM NITRATE CRYSTALLIZER.PUBLIC RELATIONS WRITER [address] [place] [address] Endocrinology 12/29/23 Product Safety Head Relationship Specialty Start Date End Date MarinaMelodie riveraINDIANA [address] [place] [address] PCP - General Family Medicine 03/06/23 Elias Butler MD [address] [place] [address] Health Care Liaison Cardiology 11/15/21 Rosa Flores AMMONIUM NITRATE CRYSTALLIZER.PUBLIC RELATIONS WRITER [address] [place] [address] Endocrinology 12/29/23 Product Safety Head Relationship Specialty Start Date End Date Marina MelodieINDIANA [address] [place] [address] PCP - General Family Medicine 03/06/23 Elias Butler MD [address] [place] [address] Health Care Liaison Cardiology 11/15/21 Rosa Flores AMMONIUM NITRATE CRYSTALLIZER.PUBLIC RELATIONS WRITER [address] [place] [address] Endocrinology 12/29/23 PRN Active and Recently Administ ered Medications (unrecognized section and content) Medication Order 08/30/2024 08/31/2024 09/01/2024 bupivacaine 0.5 % injection (MARCAINE MDV) (CANCELED) X (OR/PROCEDURE) PRN, Starting on Brigitte 09/01/24 at 1439, Until Brigitte 5 at 1507, Intraprocedure 1439 (Given - Provid er: Heather Davis MD - Comment: see op note) gadoterate meglumine 0.5 mmol/mL injection (DOTAREM) (CANCELED) X (OR/PROCEDURE) PRN, Starting on Brigitte 09/01/24 at 1452, Until Brigitte 5 at 1507, Intraprocedure 1452 (Given - Provid er: Heather Davis MD - Comment: see op note) lidocaine 5 mg/mL (0.5 %) injection (XYLOCAINE) (CANCELED) X (OR/PROCEDURE) PRN, Starting on Brigitte 09/01/24 at 1440, Until Brigitte 5 at 1507, Intraprocedure 1440 (Given - Provid er: Heather Davis MD - Comment: The Lido is buffered with 10 ml Lido: 1 mEq NaHCO3 prior to use.) triamcinolone acetonide injection (KeNALog 40) (CANCELED) X (OR/PROCEDURE) PRN, Starting on Brigitte 09/01/24 at 1440, Until Brigitte 5 at 1507, Intraprocedure 1440 (Given - Provid er: Heather Davis MD - Comment: see op note) FOR RECORDS PERTAINING TO PATIENTS WHO ARE OR HAVE BEEN ENROLLED IN A CHEMICAL DEPENDENCY/SUBSTANCEABUSE PROGRAM, SOME INFORMATION MAY BE OMITTED. This clinical summary was aggregated from multiple sources. Caution should be exercised in using it in the provision of clinical care. This summary normalizes information from multiple sources, and as a consequence, information in this document may materially change the coding, format and clinical context of patient data. In addition, data may be omitted in some cases. CLINICAL DECISIONS SHOULD BE BASED ON THE PRIMARY CLINICAL RECORDS. [employer] [facility]. provides no warranty or guarantee of the accuracy or completeness of information in this document.
[2024-11-26 14:50] VITALS: BP 141/79; PULSE 98; RESP 16; TEMP 36.6; O2SAT 97
== END 2024-11-26 14:52 | disposition home or self-care (01) ==
PROVIDERS: Emergency Provider Emergency Medicine; PCP Nurse Practitioner Family; Visit Provider Emergency Medicine
DX: S40.012A Contusion of left shoulder, initial encounter (principal); G35 Multiple sclerosis; I11.0 Hypertensive heart disease with heart failure; I50.22 Chronic systolic (congestive) heart failure; I48.0 Paroxysmal atrial fibrillation; E11.9 Type 2 diabetes mellitus without complications; Z79.4 Long term (current) use of insulin; W01.190A Fall on same level from slipping, tripping and stumbling with subsequent striking against furniture, initial encounter; I25.10 Atherosclerotic heart disease of native coronary artery without angina pectoris; E78.5 Hyperlipidemia, unspecified; F43.10 Post-traumatic stress disorder, unspecified; I25.5 Ischemic cardiomyopathy; I25.2 Old myocardial infarction; F17.210 Nicotine dependence, cigarettes, uncomplicated; Z95.5 Presence of coronary angioplasty implant and graft; Z79.01 Long term (current) use of anticoagulants; Z79.82 Long term (current) use of aspirin; Z79.899 Other long term (current) drug therapy
CPT/HCPCS: 73030; 99284

== ENCOUNTER 2024-11-27 12:21 | Emergency (ER) | payer MEDICARE, MEDICAID, SELFPAY ==
[2016-07-13 11:45] VITALS: BMI 31.4
[2024-11-27 12:23] VITALS: BP 156/77; PULSE 75; RESP 18; TEMP 36.9; O2SAT 98
[2024-11-27 12:25] VITALS: BMI 28.1
--- NOTE | 2024-11-27 13:07 | CT_ITS ---
PROCEDURE: SPINE CERVICAL WITHOUT CONTRAS 11/27/2024 REASON FOR EXAM: FALL TECHNIQUE: SPINE CERVICAL WITHOUT CONTRAS Coronal and Sagittal reconstruction series were provided. One or more dose reduction techniques were used (e.g., Automated exposure control, adjustment of the mA and/or kV according to patient size, use of iterative reconstruction technique. RADIATION DOSE SUMMARY: Dose reduction techniques utilized. COMPARISON: Reviewed FINDINGS: Osseous structures intact. Prominent multilevel degenerative changes. Extensive multilevel posterior spinal fusion hardware is intact. Paravertebral soft tissues are normal. Alignment is grossly maintained. CT/Spine Cervical without Contras IMPRESSION: No acute CT process in the cervical spine. Reading [facility]
--- NOTE | 2024-11-27 13:07 | CT_ITS ---
EXAM: BRAIN/HEAD WITHOUT CONTRAST CLINICAL HISTORY: 68 y/o F with FALL. COMPARISON: CT head 06/22/2023. TECHNIQUE: Routine CT imaging of the head without IV contrast. Additional multiplanar reformats were obtained. Dose reduction techniques were used including intermediate exposure control (AEC),iterative reconstruction technique, and/or mA and/or KV dose adjustments based on patient's size. FINDINGS: The ventricles, sulci and cisterns are mildly prominent,, compatible with mild cerebral atrophy. There is no evidence of acute intracranial hemorrhage or herniation. There is no midline shift, mass effect, or extra-axial collection. Severe patchy and confluent supratentorial white matter hypodensities. The goins and white matter interfaces are otherwise maintained. Prior ocular lens replacements. The visualized paranasal sinuses and mastoids are unremarkable. No acute calvarial fracture or scalp hematoma. CT/Brain/Head without Contrast IMPRESSION: No acute intracranial finding. Reading Location: [id number]
--- OUTSIDE RECORDS SUMMARY | 2024-11-27 13:22 | XMS RPT_ITS | CCD ---
Author Organization [facility] Care Team Providers Care Buffing Wheel Presser Name Role Phone No, Physician Unavailable Unavailable [...] Sherman Referring Provider Elina LOPEZ, PA Fatuma Hidalgo Attending Provider Dr. Artemio Leal Emergency Provider Dr. Shannan Cameron Admit Provider Dr. Shannan Cameron Attending Provider Dr. Shannan Cameron Other Provider Dr. Alessio Zapata Attending Provider Dr. Shannan Cameron Referring Provider Dr. Melodie Fisher Other Provider Dr. Gris Mason Attending Provider Marina CERTIFIED NURSES AIDE, CERTIFIED NURSES AIDE-C Melodie Attending Provider [phone] Dr. Tom Sherman Attending Provider [phone] Dr. Elias Butler Attending Provider [phone] Whit [facility] Care Provider Dr. Tom Sherman Primary Care Provider [phone] Dr. Tom Sherman Referring Provider [phone] Dr. Tom Sherman Primary Care Provider [phone] Dr. Tom Sherman Referring Provider [phone] Marina CERTIFIED NURSES AIDE, CERTIFIED NURSES AIDE-C Melodie Attending Provider [phone] Dr. Tom Sherman Attending Provider [phone] Dr. Elias Butler Attending Provider [phone] Tom Sherman Primary Care Provider [phone] Dr. Tom Sherman Referring Provider [phone] Marina CERTIFIED NURSES AIDE, CERTIFIED NURSES AIDE-C Melodie Attending Provider [phone] Dr. Tom Sherman Attending Provider [phone] Dr. Cheko Ortiz Emergency Provider Dr. Apolinar Zavala Admit Provider Dr. Apolniar Zavala Attending Provider Dr. Apolinar Zavala Other Provider Dr. Michelle Sawyer Attending Provider Dr. Michelle Sawyer Other Provider Dr. Melodie Fisher Attending Provider Dr. Melodie Fisher Other Provider Dr. Tom Sherman Primary Care Provider [phone] Dr. Tom Sherman Referring Provider [phone] Josefina CERTIFIED NURSES AIDE, CERTIFIED NURSES AIDE-C Melodie Attending Provider [phone] Dr. Elias Butler Attending Provider Dr. Apolinar Zavala Referring Provider Elina LOPEZ, PA Fatuma Hidalgo Attending Provider Kaylah Sherman MD Primary Care Provider Carrie, Elias S Unavailable Dr. Tom Sherman Primary Care Provider [phone] Dr. Tom Sherman Referring Provider [phone] Josefina CERTIFIED NURSES AIDE, CERTIFIED NURSES AIDE-C Melodie Attending Provider [phone] Dr. Tom Sherman Attending Provider [phone] Elina LOPEZ, PA aFtuma Hidalgo Attending Provider Kaylah Sherman MD Primary Care Provider Carrie, Elias S Unavailable Tom Sherman MD Primary Care Provider [phone] Carrie, [place] S Unavailable Tom Sherman MD Primary Care Provider [phone] Melodie Marina Primary Care Provider [phone] Carrie, [place] S Unavailable Melodie Marina MD Primary Care Provider [phone] Carrie WITT, Elias S Unavailable ROSA FLORES Referring Unavailable Melodie Marina CNP Primary Care Provider Melodie Marina CNP Primary Care Provider MELODIE MARINA Primary Care Unavailable JARRED DUARTE Attending Unavailable MEKA WEBB Referring Unavailable Cioce TUNNEL KILN FIRER.LARD MIXER, Rosa C Unavailable [phone] Melodie Marina MD Primary Care Provider AVRIL, [...] MARINA, MELODIE Primary Care Unavailable MELVA MARCH Unavailable AVRIL, CHLOE VALENCIAVES KATIA Referring Unavailable [...] Referring Unavailable MARINA, MELODIE Primary Care Unavailable MEKA WEBB Attending Unavailable MARINA, MELODIE Primary Care Unavailable MINZTER, HEATHER H Referring Unavailable MINZTER, HEATHER H Attending Unavailable MARINA, MELOIDE Primary Care Unavailable MARINA, MELODIE Primary Care Unavailable KOURTNEY PURDY Attending Unavailable SELF Referring Unavailable MARINA, MELODIE Primary Care Unavailable CIOCE, ROSA C Attending Unavailable BILL WOODS Attending Unavailable MARINA, MELODIE Primary Care Unavailable VAISHNAVI SORIA Attending Unavailable MARINA, MELODIE Primary Care Unavailable BILL WOODS Attending Unavailable SELF Referring Unavailable MARINA, MELODIE Primary Care Unavailable YOUNG, BILL Attending Unavailable MARINA, MELODIE Primary Care Unavailable MARINA, MELODIE Primary Care Unavailable YOUNG, BILL Referring Unavailable AMY FOWLER Attending Unavailable MARINA, MELODIE Primary Care Unavailable MARINA, MELODIE Primary Care Unavailable CIOCE ROSA C Referring Unavailable FELECIA SORIAE E Attending Unavailable MARINA, MELODIE Primary Care Unavailable MARINA, MELODIE Primary Care Unavailable REBECCA JAVIER Referring Unavailable MARINA, MELODIE Primary Care Unavailable MINZTER, HEATHER H Referring Unavailable MINZTER, HEATHER H Attending Unavailable YOUNG, BILL Attending Unavailable MARINA, MELODIE Primary Care Unavailable YANG, VAISHNAVI E Attending Unavailable MARINA, MELODIE Primary Care Unavailable YOUNG, BILL Attending Unavailable MARINA, MELODIE Primary Care Unavailable SELF Referring Unavailable MARINA, MELODIE Primary Care Unavailable MINZTER, HEATHER H Attending Unavailable MARINA, MELODIE Primary Care Unavailable CIOCEGAVIROSA C Attending Unavailable MINZTER, HEATHER H Attending Unavailable MINZTER, HEATHER H Admitting Unavailable MARINA, MELODIE Primary Care Unavailable MARINA, MELODIE Primary Care Unavailable KEITH SQUIRES Attending Unavailable MARINA, MELODIE Primary Care Unavailable SELF Referring Unavailable VAISHNAVI SORIA Attending Unavailable MARINA, MELODIE Primary Care Unavailable MARINA, MELODIE Primary Care Unavailable CIOCE, ROSA C Attending Unavailable MARINA, MELODIE Primary Care Unavailable MEKA WEBB Attending Unavailable MARINA, MELODIE Primary Care Unavailable MEKA WEBB Referring Unavailable MEKA WEBB Attending Unavailable MARINA, MELODIE Primary Care Unavailable Yg Moreland Attending Unavailable Florence Santos Admitting Unavailable Florence Santos Consulting Unavailable Marina VSC, Melodie Primary Care Unavailable Yg Moreland Consulting Unavailable Miranda, Fabrice Attending Unavailable Yg Moreland Referring Unavailable Marina VSC, Melodie Primary Care Unavailable Jahaira Mario Attending Unavailable Marina VSC, Melodie Referring Unavailable Florence Santos Attending Unavailable Gin Carballo Attending Unavailable Marina VSC, Melodie Primary Care Unavailable Jacinto Hendrickson Attending Unavailabl e Marina VSC, Melodie Primary Care Unavailable Marina VSC, Melodie Primary Care Unavailable Cheko Ortiz Attending Unavailable Marina VSC, Melodie Primary Care Unavailable Jahaira Mario Attending Unavailable Marina VSC, Melodie Referring Unavailable Marina VSC, Melodie Primary Care Unavailable Marina VSC, Melodie Referring Unavailable Fatuma Simmons Attending Unavail able Marina VSC, Melodie Primary Care Unavailable Juan Sultana Attending Unavailable Marina VSC, Melodie Primary Care Unavailable Juan Sultana Attending Unavailable Marina VSC, Melodie Referring Unavailable Marina VSC, Melodie Primary Care Unavailable Carrie, [place] Attending Unavailable Marina VSC, Melodie Primary Care Unavailable Jahaira Mario Attending Unavailable Mario, Jahaira Referring Unavailable Marina VSC, Melodie Primary Care Unavailable Beam VSC, Zebulun Attending Unavailable Beam VSC, Zebulun Referring Unavailable Marina VSC, Melodie Primary Care Unavailable FriendGeoFabrice Attending Unavailable Marina VSC, Melodie Referring Unavailable Jopperi, Yg Attending Unavailable Marina VSC, Melodie Primary Care Unavailable Alford, Michael Referring Unavailable Santos, Florence Consulting Unavailable Santos, Florence Admitting Unavailable Marina VSC, Melodie Primary Care Unavailable Friend, Fabrice Attending Unavailable Jopperi, Yg Referring Unavailable Santos, Florence Admitting Unavailable Santos, Florence Consulting Unavailable Jopperi, Yg Consulting Unavailable Jopperi, Yg Attending Unavailable Friend, Fabrice Attending Unavailable Jopperi, Yg Referring Unavailable Marina VSC, Melodie Primary Care Unavailable Santos, Florence Consulting Unavailable Santos, Florence Admitting Unavailable Marina VSC, Melodie Primary Care Unavailable Mark Anthony Blackburn Attending Unavailable Marina VSC, Melodie Primary Care Unavailable Juan Sultana Attending Unavailable Marina VSC, Melodie Primary Care Unavailable Juan Sultana Attending Unavailable Marina VSC, Melodie Primary Care Unavailable Carrie, [place] Attending Unavailable Guy Gonzalez Referring Unavailable Marina VSC, Melodie Primary Care Unavailable Amy Rebolledo Attending Unavailable Marina VSC, Melodie Primary Care Unavailable Alford, Michael Attending Unavailable Marina VSC, Melodie Primary Care Unavailable Warren Jiménezent Attending Unavailable Jabour, Vincent Referring Unavailable Marina VSC, Melodie Primary Care Unavailable Friend, Fabrice Attending Unavailable Marina VSC, Melodie Referring Unavailable Marina VSC, Melodie Primary Care Unavailable Beam VSC, Zebulun Attending Unavailable Marina VSC, Melodie Primary Care Unavailable Beam VSC, Zebulun Attending Unavailable Beam VSC, Zebulun Referring Unavailable Allergies Allergy Classification Reported Allergen(s) Allergy Type Date of Onset Reaction(s) Facility ARIPiprazole (2 sources) ARIPiprazole Drug Allergy 01-24-202 0 Other: See Comments [facility] Aspirin (2 sources) Aspirin Drug Allergy 4 Other: See Comments [facility] Iodine (and Iodine containting drugs) (2 sources) Iodine Drug Allergy 5 Intolerance [facility] Lincosamides (antibiotic) (2 sources) Clindamycin Drug Allergy 5 Intolerance [facility] metFORMIN (2 sources) metFORMIN Drug Allergy 0 GI Upset [facility] NSAIDs (2 sources) Indomethacin Drug Allergy 4 Other: See Comments [facility] Opioid Agonists (2 sources) Propoxyphene Drug Allergy 7 Other: See Comments [facility] Serotonin Reuptake Inhibitors (SSRIs) (2 sources) traZODone Drug Allergy 3 Intolerance [facility] Serotonin-1b and Serotonin-1d Receptor Agonists (2 sources) SUMAtriptan Drug Allergy 8 Vomiting [facility] (20 sources) Aspirin; Translations: [aspirin] Drug Allergy 4 Clindamycin (product), Other: See Comments [facility] (20 sources) Clindamycin; Translations: [clindamycin] Drug Allergy 5 Intolerance [facility] (20 sources) Indomethacin; Translations: [indomethacin] Drug Allergy 4 Other: See Comments [facility] (20 sources) Iodine; Translations: [iodine] Drug Allergy 5 Intolerance [facility] (20 sources) Propoxyphene; Translations: [propoxyphene] Drug Allergy 7 Other: See Comments [facility] (20 sources) SUMAtriptan; Translations: [sumatriptan] Drug Allergy 8 Vomiting [facility] (20 sources) ARIPiprazole; Translations: [ARIPIPRAZOLE] Drug Allergy 0 Other: See Comments [facility] (8 sources) Indomethacin; Translations: [indomethacin sodium] Drug Allergy 2 Hives [facility] Repository (20 sources) metFORMIN; Translations: [METFORMIN] Drug Allergy 0 GI Upset [facility] (8 sources) Propoxyphene; Translations: [propoxyphene napsylate] Drug Allergy 2 Out of control [facility] Repository (20 sources) Propoxyphene N-Acetaminophen; Translations: [PROPOXYPHENE N-ACETAMINOPHEN] Drug Intolerance 5 Intolerance [facility] (20 sources) Iodinated Contrast Media; Translations: [IODINATED CONTRAST MEDIA] Drug Allergy 0 Other: See Comments [facility] (20 sources) traZODone; Translations: [TRAZODONE] Drug Allergy 3 Intolerance [facility] (20 sources) Vancomycin; Translations: [VANCOMYCIN] Drug Allergy 4 Shortness of Breath [facility] (1 source) ARIPiprazole Drug Allergy 5 [facility] (1 source) Aspirin Drug Allergy 5 [facility] (1 source) Clindamycin Drug Allergy 5 [facility] (1 source) Indomethacin Drug Allergy 5 [facility] (1 source) Iodine Drug Allergy 5 [facility] (1 source) metFORMIN Drug Allergy 5 [facility] (1 source) SUMAtriptan Drug Allergy 5 [facility] (1 source) traZODone Drug Allergy 5 [facility] (1 source) Vancomycin Drug Allergy 5 [facility] Medications Current Medications Medication Drug Class(es) Dates [...] above: Take 1 tablet by kemi th every 8 hours as needed for pain. [...] 2.5 MG INHALATION EVERY 2 HOURS NEEDED 0 November 19, 2021 11:00pm Start: 09-20-2021 End: [...] mg tablet Active 5 MG PO DAILY 180 January 14, 2022 1:00pm Start: 11-19-2021 End: 01-14-2022 take 1 tablet by mouth twice daily Apixaban (Eliquis) 5 mg tablet Discontinued 5 MG PO TWICE A DAY November 18, 2021 11:00pm January 14, 2022 12:28pm Start: 03-19-2021 End: 04-04-2021 Start: 03-19-2021 End: 08-06-2021 take 1 tablet by mouth twice daily Apixaban (Eliquis) 5 mg tablet Discontinued 5 MG PO TWICE A DAY 180 April 22, 2021 4:55pm August 06, 2021 [...] Take 1 tablet by kemi once daily. aspirin 81 mg delayed release [...] ophthalmic solution (3 sources) Diagnostic Dye Start: End: fluorescein-benoxina te 0.3-0.4 % 1 Drop (FLURESS) [...] Start: 10-15-2017 take 1 capsule by mo [facility] once daily Cholecalciferol, Vitamin D3, 5,000 unit cap Indications: vitamin D deficiency Take 1 capsule by mouth once daily. 90 capsule 3 10/15/2017 Active Comment on above: Take 1 capsule by mo ut once daily. citalopram 10 mg oral tablet [...] Comment on above: Take 2 tablets by [facility] once daily. doxycycline monohydrate 100 mg oral [...] above: Take 1 capsule by mo uth two times a day for 7 days. Take 1 capsule by mo uth two times a day. When needed for [...] above: Take 1 tablet by kemi th three times daily as needed. insulin detemir [...] ntinued 60 MG PO TWICE A DAY July 09, 2021 11:56am November 05, 2021 9:24am two twice a day Start: 08-06-2020 End: 10-08-2020 take 30 mg by mouth once daily Isosorbide Mononitrate Discontinued 30 MG PO DAILY August 05, 2020 11:00pm October 08, 2020 2:06pm Start: 10-06-2017 End: 08-17-2019 take 30 mg by mouth once daily Isosorbide Mononitrate Discontinued 30 MG PO DAILY August 09, 2018 7:37pm August 17, 2019 4:25pm Start: 06-13-2017 End: 05-08-2021 take 30 mg by mouth twice daily Isosorbide Mononitrate Discontinued 30 MG PO TWICE A DAY 60 Helen 14th, 2021 2:05pm May 08, 2021 10:53am Start: 10-21-2016 End: 06-02-2017 take 30 mg by mouth once daily Isosorbide Mononitrate Discontinued 30 MG PO DAILY April 14, 2017 4:01pm June 02, 2017 2:57pm Comment on above: Take 2 tablets by mo [facility] once daily. Take 1 tablet by kemi once daily. lactobacillus acidophilus 10 [id number] unt / pectin 10 mg oral capsule (13 sources) Start: 09-23-2020 Start: 09-23-2020 End: 04-01-2022 take 1 capsule by mouth once daily Acidophilus-Pectin, [place] Active 1 CAP PO DAILY April 01, [...] 20 M G PO TWICE A DAY 180 April 02, 2021 3:18pm June 22, 2021 [...] for nausea/vomiting. Take 1 tablet by kemi every 8 hours as needed for nausea/vomiting. [...] Start: 07-17-2022 take 2 tablets by mo [facility] once daily at bedtime QUEtiapine (SEROQUEL) 50 [...] mg/0.5 mL pen injector (3 sources) Start: 07-10-2025 inject 15 mg by subcutaneous injection every week tirzepatide (MOUNJARO) 15 mg/0.5 mL pen injector Indications: Controlled type 2 diabetes mellitus without complication, unspecified whether terminologist insulin use (HCC) Inject 15 mg subcutaneously [...] Discontinued Start: 10-23-2020 take 1 capsule by [facility] once daily acidophilus-pectin, citrus 7.5 mg (30 [...] (20 sources) Serotonin-3 Receptor Antagonist Start: 06-26-19 23 End: 08-06-19 24 Alosetron HCl 0.5 mg [...] oral capsule (7 sources) Cephalosporin Antibacterial Start: End: 1 take 400 mg by mouth [...] 11:12am Start: 10-23-2020 take 1 capsule by [facility] once daily cephALEXin (KEFLEX) 250 mg capsule Take 1 capsule by mouth once daily. 0 10/23/2020 Active Start: 08-04-2020 End: 08-07-2020 take 500 mg by mouth every eight hours Cephalexin Discontinued 500 MG PO Q8H August 03, 2020 11:00pm August 07, 2020 12:29pm Comment on above: Take 1 capsule by mo [facility] once daily. Take 1 capsule by [facility] four times daily. clopidogrel 75 mg oral [...] mg oral capsule (7 sources) Start: 08-07-19 End: 10-02-19 14 take 1 capsule by [...] subcutaneous syringe Discontinued 60 MG SC ONCE 1 July 03, 2021 11:19am July 03, 2021 [...] 100 mg oral capsule (7 sources) Start: End: take 100 mg by mouth once [...] on above: Take 1 capsule by mo [facility] daily at bedtime. Estrogens, Conjugated (FDC) / medroxyPROGESTERone (17 sources) Progestin, Estrogen Start: [...] Take 1 tablet by kemi once daily. Exenatide Microspheres (Bydureon) 2 MG [...] MONITORING. Multiple insulin injections. E11.9 Fluad Quad [id number](65yr up)(PF) 60 mcg (15 mcg x 4)/0.5mL IM syringe (flu vac (3 sources) Start: 01-30-2021 End: 01-30-2021 Fluad Quad (65yr up)(PF) 60 mcg (15 mcg x 4)/0.5mL [...] Biguanide, Dipeptidyl Peptidase 4 Inhibitor Start: 03-27-20 End: 03-31-20 Start: 03-27-2016 End: 03-31-2016 Linagliptin-Metformin (Jenta dueto) [...] 800 MG PO THREE TIMES A DAY 90 October 12, 2014 11:00pm October 13, 2014 [...] (N ITROLINGUAL) 400 mcg/spray spray Dissolve 1 [place] under the tongue every 5 minutes as needed. 0 Active Comment on above: Dissolve 1 [place] und er the tongue every 5 minutes as needed. Dissolve 0.4 mg unde r the tongue every 5 minutes as needed. 0.4 ml ofatumumab 50 mg/ml pen injector (20 sources) [id number] Cytolytic Antibody Start: 07-21-2023 End: 01-05-2024 ofatumumab [...] mg weekly Inject 0.5 mg once w eekly phenazopyridine hydrochloride 100 mg oral tablet (7 [...] by mouth once daily. polyethylene glycol [id number] [id number] mg powder for oral solution (7 sources) [...] mg/3 mL) pen (20 sources) Start: 05-05-19 24 End: 08-19-19 24 inject 1 mg by subcutaneous injection every [...] 2 diabetes mellitus without complication, unspecified whether terminologist insulin use (HCC) Inject 2 mg subcutaneously [...] subcutan eously one time a week. sennosides, half-way 8.6 mg oral tablet (14 sources) Start: [...] hours Tramadol Discontinued 50 MG PO Q12H 14 April 04, 2021 3:30pm May 08, 2021 [...] (20 sources) Partial Cholinergic Nicotinic Agonist End: 05-26-2024 take 1 tablet by mouth once daily [...] on above: Take 1 capsule by mo [facility] once daily. 24 hr verapamil hydrochloride 180 [...] 2 tablets by mouth once daily Warfarin (Pankajven) 5 MG tablet Discontinued 10 MG PO [...] [Personal history of peptic ulcer disease] Episodic Genitourinary symptoms and ill-defined conditions (11 sources) Dysuria; Translations: [Dysuria] Onset: 5 Episodic Headache; including migraine (7 sources) Headache; [...] diarrhea; Translations: [Nausea with vomiting, unspecified] Onset: 5 Episodic Noninfectious gastroenteritis (20 sources) Colitis; Translations: [Noninfective gastroenteritis and colitis, unspecified] 10-12-2014 Episodic Nonspecific chest pain (20 sources) Other chest pain; Translations: [Chest pain] Onset: 8 Resolved: 2 Episodic Nutritional deficiencies (14 sources) Cobalamin deficiency; [...] sources) Long-term current use of anticoagulant; Translations: [terminologist (current) use of anticoagulants] 11-11-2022 Episodic Other aftercare (4 sources) Immunosuppression; Translations: [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)] 09-24-2023 Episodic Other aftercare (2 sources) Long-term current use of drug therapy; Translations: [Other mcfp (current) drug therapy] 12-14-2023 Episodic Other and [...] Translations: [Intracardiac thrombosis, not elsewhere classified] Onset: 2 10-26-2021 Chronic Other circulatory disease (7 sources) [...] seborrheic keratosis; Translations: [Inflamed seborrheic keratosis] Onset: 5 Episodic Amy-; endo-; and myocarditis; cardiomyopathy (except [...] Unclassified (1 source) 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) Onset: 8 Unclassified (1 source) Multiple sclerosis / G35(ICD-10) Onset: 8 Unclassified (1 source) Presence of coronary angioplasty implant and graft / Z95.5(ICD-10) Onset: 8 Unclassified (1 source) terminologist (current) use of 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/antipl atelets / Z79.02(ICD-10) Onset: 8 Unclassified (1 source) FDC (current) use of oral hypoglycemic drugs / Z79.84(ICD-10) Onset: 8 Unclassified (1 source) Other terminologist (current) drug therapy / Z79.899(ICD-10) Onset: 8 Unclassified (1 source) Personal history of self-harm / Z91.5(ICD-10) Onset: 8 Unclassified (1 source) terminologist (current) use of insulin / Z79.4(ICD-10) Onset: 8 Unclassified (1 source) FDC (current) use of opiate analgesic / Z79.891(ICD-10) [...] [Hematemesis] Onset: 10-22-2021 Resolved: 10-31-2021 10-12-2014 Episodic Hypertension with complications and secondary hypertension (20 sources) Hypertensive emergency; Translations: [Hypertensive emergency] Onset: 10-28-2021 Resolved: 10-31-2021 10-31-2021 Chronic Other acquired deformities (1 source) Other specified deforming dorsopathies, sacral and sacrococcygeal region; Translations: [Oth deforming dorsopathies, sacral and sacrococcygeal region] Onset: 08-05-2024 Episodic Other aftercare (1 source) terminologist (current) use of insulin; Translations: [Type 2 diabetes mellitus with other circulatory complication, with long-term current use of insulin (HCC)] Onset: 10-26-2021 Episodic Other aftercare (2 sources) Other terminologist (current) drug therapy; Translations: [Encounter for long-term [...] Test Name Value Interpretation Reference Range Facility CNPNon 11-15-2024 CNPN [facility] CNOVon 10-25-2024 CNOV [facility] XR LUMBAR 4V AP/LAT/ FLEX/EX Ton 10-25-2024 XR LUMBAR 4V AP/LAT/ FLEX/EXT [facility] CNOVon 10-12-2024 CNOV [facility] CRYOTHERAPY SKIN LESIONon Complexity: simple Destruction [...] complications Post-procedure details: wound care instructions given [facility] OCT MACULA CIRRUS OU (BOTH E YES)on 10-10-2024 [facility] Radiology Study observation (narrative) [facility] OCT OPTIC NERVE CIRRUS OU (B OTH EYES)on 10-10-2024 [facility] Radiology Study observation (narrative) [facility] CNNURSEon 09-21-2024 CNNURSE [facility] CNOVon 09-21-2024 CNOV [facility] CNPNon 09-08-2024 CNPN [facility] NURSING PROGon 09-01-2024 NURSING PROG [facility] OPERATIVE NOon 09-01-2024 OPERATIVE NO [facility] CNOVon 08-29-2024 CNOV [facility] CNPNon 08-29-2024 CNPN [facility] CNOVon 08-24-2024 CNOV [facility] CNPNon 08-24-2024 CNPN [facility] HISTORY PHYSICALon HISTORY PHYSICAL [facility] CNPNon 08-22-2024 CNPN [facility] CNOVon 08-17-2024 CNOV [facility] CNPNon 08-17-2024 CNPN [facility] MR Brain WO contraston 08-12 * * *Final Report* * * DATE OF EXAM: Aug 12 2024 10:10AM M [id number] - MRI BRAIN WO IVCON / [...] Improvement: None. New Enhancing Lesions: N/A T2 [place] of Disease: Severe. Parenchymal Volume Loss: Moderate. [...] from with orthopedic hardware. Cord T2 Plaque [place]: None New T2 Lesions: None Interval Cord [...] equal to 2mm). DIVISION OF RADIOLOGY Provider, [facility] - 08/12/2024 * * *Final Report* * * DATE OF EXAM: Aug 12 2024 10:10AM [id number] - MRI BRAIN WO IVCON / [...] Improvement: None. New Enhancing Lesions: N/A T2 [place] of Disease: Severe. Parenchymal Volume Loss: Moderate. [...] from with orthopedic hardware. Cord T2 Plaque [place]: None New T2 Lesions: None Interval Cord [...] vertebrae with counting from the craniocervical junction. Film Maker: PSCB Transcribe Date/Time: Aug 12 2024 10:13A Dictated by : MELVA GAUTHIER MD This examination was interpreted and the report reviewed and electronically signed by: MELVA GAUTHIER MD on Aug 12 2024 10:24AM [facility] MR Cervical spine WO contras ton 08-12-2024 * * *Final Report* * * DATE OF EXAM: Aug 12 2024 10:10AM [facility] 0297 - MRI CERVICAL SPINE WO [...] Improvement: None. New Enhancing Lesions: N/A T2 [place] of Disease: Severe. Parenchymal Volume Loss: Moderate. [...] from with orthopedic hardware. Cord T2 Plaque [place]: None New T2 Lesions: None Interval Cord [...] equal to 2mm). DIVISION OF RADIOLOGY Provider, [facility] - 08/12/2024 * * *Final Report* * * DATE OF EXAM: Aug 12 2024 10:10AM [facility] 0297 - MRI CERVICAL SPINE WO [...] Improvement: None. New Enhancing Lesions: N/A T2 [place] of Disease: Severe. Parenchymal Volume Loss: Moderate. [...] from with orthopedic hardware. Cord T2 Plaque [place]: None New T2 Lesions: None Interval Cord [...] vertebrae with counting from the craniocervical junction. Film Maker: PSCB Transcribe Date/Time: Aug 12 2024 10:13A Dictated by : MELVA GAUTHIER MD This examination was interpreted and the report reviewed and electronically signed by: MELVA GAUTHIER MD on Aug 12 2024 10:24AM EST [facility] MRI BRAIN WO IVCONon 025 MRI BRAIN WO IVCON Normal [facility] MRI CERVICAL SPINE WO IVCONo n 08-12-2024 MRI CERVICAL SPINE WO IVCON Normal [facility] No Panel Informationon 08-12 IMPRESSION: Multiple [...] vertebrae with counting from the craniocervical junction. Film Maker: PSCB Transcribe Date/Time: Aug 12 2024 10:13A Dictated by : MELVA GAUTHIER MD This examination was interpreted and the report reviewed and electronically signed by: MELVA GAUTHIER MD on Aug 12 2024 10:24AM [facility] DIVISION OF RADIOLOGY Radiology Study observation (narrative) [facility] No Panel InformationOrdered By: Ccf Provider on 08-12-2024 [facility] CNOVon 08-05-2024 CNOV Normal [facility] CNOVon 08-04-2024 CNOV Normal [facility] XR LUMBAR 4V AP/LAT/ FLEX/EX Ton 08-04-2024 XR LUMBAR 4V AP/LAT/ FLEX/EXT Normal [facility] CNPNon 08-03-2024 CNPN Normal [facility] CNPNon 08-01-2024 CNPN Normal [facility] ALBUMIN/CREATININE RATIO, UR INEon 07-29-2024 Albumin DL <= 20 mg/L (U) [Mass/Vol] mg/dL Normal [facility] Comment on above: Order Comment: Speci men Type: URINE SPECIMENOrdering Facility: [facility] Address: [address] [place] [address] Performed By: #### U ACR ####[facility] LABCLIA [id number] [place] [address] [place] Albumin/Creatinine (U) [Mass ratio] <10 Normal <30 [facility] Comment on above: Order Comment: Speci men Type: URINE SPECIMENOrdering Facility: [facility] Address: [address] [place] [address] Result Comment: Adul t Male and Female Nephrotic Criteria:<30 mg/g is considered normal to mildly rwdagxcwy39-663 mg/g is considered moderately increased>300 mg/g is considered severely increasedKDIGO. (2013). KDIGO 2012 Clinical Practice Guideline for the Evaluation and Management of Chronic Kidney Disease. Official Journal of the International Society of Nephrology, 3(1), 1-150. Performed By: #### U ACR ####[facility] LABIA [id number] [address] [place] Creatinine (U) [Mass/Vol] 119.0 mg/dL Normal 20.0-300.0 [facility] Comment on above: Order Comment: Speci men Type: URINE SPECIMENOrdering Facility: [facility] Address: [address] [place] [address] Performed By: #### U ACR ####[facility] LABIA [id number] [place] [address] [place] Bacteria Ur Culton Bacteria identified Cx Nom (U) Normal [facility] Comment on above: Performed By: #### 6 30-4 ####[facility] LABIA [id number] [address] [place] CBC W Auto Differential pane l (Bld)on 07-29-2024 Basophils (Bld) [#/Vol] 0.07 10*3/uL Normal <0.11 [facility] Comment on above: Order Comment: Speci men Type: BLOOD SPECIMENOrdering Facility: [facility] Address: [address] [place] [address] Performed By: #### 5 7021-8 ####[facility] [id number] [place], [place] [address] [place] [address] [place] Basophils/100 WBC (Bld) 1.1 % Normal [facility] Comment on above: Order Comment: Speci men Type: BLOOD SPECIMENOrdering Facility: [facility] Address: [address] [place] [address] Performed By: #### 5 7021-8 ####[facility] MILLWTARIKLIA [id number] [place] [address] [place] Differential cell count method Nom (Bld) Auto Normal [facility] Comment on above: Order Comment: Speci men Type: BLOOD SPECIMENOrdering Facility: [facility] Address: [address] [place] [address] Performed By: #### 5 7021-8 ####[facility] SYSTEMTARIKLIA [id number] [place] [address] [place] Eosinophils (Bld) [#/Vol] 0.23 10*3/uL Normal <0.46 [facility] Comment on above: Order Comment: Speci men Type: BLOOD SPECIMENOrdering Facility: [facility] Address: [address] [place] [address] Performed By: #### 5 7021-8 ####[facility] [place] SYSTEMTARIKLIA [id number] [place] [address] [place] Eosinophils/100 WBC (Bld) 3.6 % Normal [facility] Comment on above: Order Comment: Speci men Type: BLOOD SPECIMENOrdering Facility: [facility] Address: [address] [place] [address] Performed By: #### 5 7021-8 ####[facility] [place] SYSTEMTARIKLIA [id number] [place] [address] [place] Erythrocyte distribution width (RBC) [Ratio] 15.1 % High 11.5-15.0 [facility] Comment on above: Order Comment: Speci men Type: BLOOD SPECIMENOrdering Facility: [facility] Address: [address] [place] [address] Performed By: #### 5 7021-8 ####[facility] SYSTEMNCLIA [id number] [place] [address] [place] Hematocrit (Bld) [Volume fraction] 35.2 % Low 36.0-46.0 [facility] Comment on above: Order Comment: Speci men Type: BLOOD SPECIMENOrdering Facility: [facility] Address: [address] [place] [address] Performed By: #### 5 7021-8 ####[facility] [id number] [place] [address] [place] Hemoglobin (Bld) [Mass/Vol] 11.1 g/dL Low 11.5-15.5 [facility] Comment on above: Order Comment: Speci men Type: BLOOD SPECIMENOrdering Facility: [facility] Address: [address] [place] [address] Performed By: #### 5 7021-8 ####[facility]TARIK[facility] [id number] [place] [address] [place] Immature granulocytes (Bld) [#/Vol] 10*3/uL Normal <0.10 [facility] Comment on above: Order Comment: Speci men Type: BLOOD SPECIMENOrdering Facility: [facility] Address: [address] [place] [address] Performed By: #### 5 7021-8 ####[facility] [id number] [place] [address] [place] Immature granulocytes/100 WBC (Bld) 0.3 % Normal [facility] Comment on above: Order Comment: Speci men Type: BLOOD SPECIMENOrdering Facility: [facility] Address: [address] [place] [address] Performed By: #### 5 7021-8 ####[facility] [id number] [place] [address] [place] Lymphocytes (Bld) [#/Vol] 1.50 10*3/uL Normal 1.00-4.00 [facility] Comment on above: Order Comment: Speci men Type: BLOOD SPECIMENOrdering Facility: [facility] Address: [address] [place] [address] Performed By: #### 5 7021-8 ####[facility] CRISTYBHANU [id number] [place] [address] [place] Lymphocytes/100 WBC (Bld) 23.4 % Normal [facility] Comment on above: Order Comment: Speci men Type: BLOOD SPECIMENOrdering Facility: [facility] Address: [address] [place] [address] Performed By: #### 5 7021-8 ####[facility] [place] [facility] SYSTEMNCALEXIA [id number] [place] [address] [place] MCH (RBC) [Entitic mass] 28.9 pg Normal 26.0-34.0 [facility] Comment on above: Order Comment: Speci men Type: BLOOD SPECIMENOrdering Facility: [facility] Address: [address] [place] [address] Performed By: #### 5 7021-8 ####[facility] [place] SYSTEMNCBarbara [id number] [place] [address] [place] MCHC (RBC) [Mass/Vol] 31.5 g/dL Normal 30.5-36.0 [facility] Comment on above: Order Comment: Speci men Type: BLOOD SPECIMENOrdering Facility: [facility] Address: [address] [place] [address] Performed By: #### 5 7021-8 ####[facility] SYSTEMNCLIA [id number] [place] [address] [place] MCV (RBC) [Entitic vol] 91.7 fL Normal 80.0-100.0 [facility] Comment on above: Order Comment: Speci men Type: BLOOD SPECIMENOrdering Facility: [facility] Address: [address] [place] [address] Performed By: #### 5 7021-8 ####[facility] MILLWNCLIA [id number] [place] [address] [place] Monocytes (Bld) [#/Vol] 0.55 10*3/uL Normal <0.87 [facility] Comment on above: Order Comment: Speci men Type: BLOOD SPECIMENOrdering Facility: [facility] Address: [address] [place] [address] Performed By: #### 5 7021-8 ####[facility] MEDICAL CENTERLIA [id number] [place] [address] [place] Monocytes/100 WBC (Bld) 8.6 % Normal [facility] Comment on above: Order Comment: Speci men Type: BLOOD SPECIMENOrdering Facility: [facility] Address: [address] [place] [address] Performed By: #### 5 7021-8 ####[facility] MEDICAL CENTERLIA [id number] [place] [address] [place] Neutrophils (Bld) [#/Vol] 4.04 10*3/uL Normal 1.45-7.50 [facility] Comment on above: Order Comment: Speci men Type: BLOOD SPECIMENOrdering Facility: [facility] Address: [address] [place] [address] Performed By: #### 5 7021-8 ####[facility] MEDICAL CENTERLIA [id number] [place] [address] [place] Neutrophils/100 WBC (Bld) 63.0 % Normal [facility] Comment on above: Order Comment: Speci men Type: BLOOD SPECIMENOrdering Facility: [facility] Address: [address] [place] [address] Performed By: #### 5 7021-8 ####[facility] [place] [facility] SYSTEMNCLIA [id number] [place] [address] [place] Nucleated RBC (Bld) [#/Vol] 10*3/uL Normal <0.01 [facility] Comment on above: Order Comment: Speci men Type: BLOOD SPECIMENOrdering Facility: [facility] Address: [address] [place] [address] Performed By: #### 5 7021-8 ####[facility] [id number] [place] [address] [place] Nucleated RBC/100 WBC (Bld) [Ratio] 0.0 /100 WBC Normal [facility] Comment on above: Order Comment: Speci men Type: BLOOD SPECIMENOrdering Facility: [facility] Address: [address] [place] [address] Performed By: #### 5 7021-8 ####[facility] [id number] [place] [address] [place] Platelet mean volume (Bld) [Entitic vol] 9.9 fL Normal 9.0-12.7 [facility] Comment on above: Order Comment: Speci men Type: BLOOD SPECIMENOrdering Facility: [facility] Address: [address] [place] [address] Performed By: #### 5 7021-8 ####[facility] [id number] [place] [address] [place] Platelets (Bld) [#/Vol] 260 10*3/uL Normal 150-400 [facility] Comment on above: Order Comment: Speci men Type: BLOOD SPECIMENOrdering Facility: [facility] Address: [address] [place] [address] Performed By: #### 5 7021-8 ####[facility] [id number] [place] [address] [place] RBC (Bld) [#/Vol] 3.84 10*6/uL Low 3.90-5.[address] [facility] Comment on above: Order Comment: Speci men Type: BLOOD SPECIMENOrdering Facility: [facility] Address: [address] [place] [address] Performed By: #### 5 7021-8 ####[facility] EASTWNCLIA [id number] [place] [address] [place] WBC (Bld) [#/Vol] 6.41 10*3/uL Normal 3.70-11.[address] [facility] Comment on above: Order Comment: Speci men Type: BLOOD SPECIMENOrdering Facility: [facility] Address: [address] [place] [address] Performed By: #### 5 7021-8 ####[facility] [place] [facility] SYSTEMNCLIA [id number] [place] [address] [place] CNPNon 07-29-2024 CNPN Normal [facility] Comprehensive metabolic 2000 panelon 07-29-2024 Albumin [Mass/Vol] 3.5 g/dL Low 3.9-4.9 [facility] Comment on above: Order Comment: Speci men Type: BLOOD SPECIMENOrdering Facility: [facility] Address: [address] [place] [address] Performed By: #### 2 4323-8 ####[facility] [place] [facility] SYSTEMNCLIA [id number] [place] [address] [place] ALP [Catalytic activity/Vol] 207 U/L High 34-123 [facility] Comment on above: Order Comment: Speci men Type: BLOOD SPECIMENOrdering Facility: [facility] Address: [address] [place] [address] Performed By: #### 2 4323-8 ####[facility] [facility] SYSTEMNCLIA [id number] [place] [address] [place] ALT [Catalytic activity/Vol] 26 U/L Normal 7-38 [facility] Comment on above: Order Comment: Speci men Type: BLOOD SPECIMENOrdering Facility: [facility] Address: [address] [place] [address] Performed By: #### 2 4323-8 ####[facility] MILLTOWNCLIA [id number] [place] [address] [place] Anion gap [Moles/Vol] 6 mmol/L Low 8-15 [facility] Comment on above: Order Comment: Speci men Type: BLOOD SPECIMENOrdering Facility: [facility] Address: [address] [place] [address] Performed By: #### 2 4323-8 ####[facility] MILLTOWNCLIA [id number] [place] [address] [place] AST [Catalytic activity/Vol] 9 U/L Low 13-35 [facility] Comment on above: Order Comment: Speci men Type: BLOOD SPECIMENOrdering Facility: [facility] Address: [address] [place] [address] Performed By: #### 2 4323-8 ####[facility] MILLTOWNCLIA [id number] [place] [address] [place] Bilirubin [Mass/Vol] 0.2 mg/dL Normal 0.2-1.3 [facility] Comment on above: Order Comment: Speci men Type: BLOOD SPECIMENOrdering Facility: [facility] Address: [address] [place] [address] Performed By: #### 2 4323-8 ####[facility] MILLTOWNCLIA [id number] [place] [address] [place] Calcium [Mass/Vol] 9.4 mg/dL Normal 8.5-10.2 [facility] Comment on above: Order Comment: Speci men Type: BLOOD SPECIMENOrdering Facility: [facility] Address: [address] [place] [address] Performed By: #### 2 4323-8 ####[facility]ENTERLI [id number] [place] [address] [place] Chloride [Moles/Vol] 102 mmol/L Normal 98-107 [facility] Comment on above: Order Comment: Speci men Type: BLOOD SPECIMENOrdering Facility: [facility] Address: [address] [place] [address] Performed By: #### 2 4323-8 ####[facility] [id number] [place] [address] [place] CO2 [Moles/Vol] 27 mmol/L Normal 22-30 [facility] Comment on above: Order Comment: Speci men Type: BLOOD SPECIMENOrdering Facility: [facility] Address: [address] [place] [address] Performed By: #### 2 4323-8 ####[facility] [id number] [place] [address] [place] Creatinine [Mass/Vol] 0.64 mg/dL Normal 0.58-0.96 [facility] Comment on above: Order Comment: Speci men Type: BLOOD SPECIMENOrdering Facility: [facility] Address: [address] [place] [address] Performed By: #### 2 4323-8 ####[facility] CENTERLI [id number] [place] [address] [place] [facility] Creatinine and Glomerular filtration rate.predicted panel (S/P/Bld) 96 mL/min/1.73m??? Normal >=60 [facility] Comment on above: Order Comment: Speci men Type: BLOOD SPECIMENOrdering Facility: [facility] Address: [address] [place] [address] Result Comment: Julianne mated Glomerular Filtration Rate [...] actual GFR. Performed By: #### 2 4323-8 ####[facility] [place] SYSTEMNCLIA [id number] [place] [address] [place] Glucose [Mass/Vol] 171 mg/dL High 74-99 [facility] Comment on above: Order Comment: Speci men Type: BLOOD SPECIMENOrdering Facility: [facility] Address: [address] [place], [place] [id number] Result Comment: The [place] Diabetes Association (ADA) provides guidance for cutoff [...] Standards of Medical Care in Diabetes 2016, [place] Diabetes Association. Diabetes Care. 2016.39(Suppl 1). Performed By: #### 2 4323-8 ####[facility] SYSTEMNCLIA [id number] [place] [address] [place] Potassium [Moles/Vol] 3.8 mmol/L Normal 3.7-5.1 [facility] Comment on above: Order Comment: Marii men Type: BLOOD SPECIMENOrdering Facility: [facility] Address: [address] [place] [address] Performed By: #### 2 4323-8 ####[facility] MED[facility] CENTERLIA [id number] [place] [address] [place] Protein [Mass/Vol] 6.3 g/dL Normal 6.3-8.0 [facility] Comment on above: Order Comment: Marii men Type: BLOOD SPECIMENOrdering Facility: [facility] Address: [address] [place] [address] Performed By: #### 2 4323-8 ####[facility] [id number] [place] [address] [place] Sodium [Moles/Vol] 135 mmol/L Low 136-144 [facility] Comment on above: Order Comment: Speci men Type: BLOOD SPECIMENOrdering Facility: [facility] Address: [address] [place] [address] Performed By: #### 2 4323-8 ####[facility] [id number] [place] [address] [place] Urea nitrogen [Mass/Vol] 20 mg/dL Normal 7-21 [facility] Comment on above: Order Comment: Speci men Type: BLOOD SPECIMENOrdering Facility: [facility] Address: [address] [place] [address] Performed By: #### 2 4323-8 ####[facility] [id number] [place] [address] [place] HbA1c (Bld)on 07-29-2024 Average glucose Estimated from glycated hemoglobin (Bld) [Mass/Vol] 134 mg/dL Normal [facility] Comment on above: Order Comment: Speci men Type: BLOOD SPECIMENOrdering Facility: [facility] Address: [address] [place] [address] Result Comment: eAG: (Estimated average glucose) is a calculated value from HgbA1c and is client services representative of the average blood glucose level in the last 2-3 month period. Performed By: #### 5 5454-3 ####[facility] LABCLIA [id number] [place] [address] [place] HbA1c (Bld) [Mass fraction] 6.3 % High 4.3-5.6 [facility] Comment on above: Order Comment: Speci men Type: BLOOD SPECIMENOrdering Facility: [facility] Address: [address] [place] [address] Result Comment: [place] Diabetes Association guidelines indicate that patients with HgbA1c in the range 5.7-6.4% are at increased risk for development of diabetes, and intervention by lifestyle modification may be beneficial. HgbA1c greater or equal to 6.5% is considered diagnostic of diabetes. Performed By: #### 5 5454-3 ####[facility] LABCLIA [id number] [address] [place] LIPID PANEL, NONFASTINGon Cholesterol [Mass/Vol] 134 mg/dL Normal <200 [facility] Comment on above: Order Comment: Marii men Type: BLOOD SPECIMENOrdering Facility: [facility] Address: [address] [place] [address] Result Comment: <200 mg/dL, Desirable 200-239 mg/dL, Borderline high>239 mg/dL, High Performed By: #### L IPNF ####[facility] LABCLIA [id number] [place] [address] [place] HDL CHOLESTEROL, NF 72 mg/dL Normal >[address] [facility] Comment on above: Order Comment: Luis velez Type: BLOOD SPECIMENOrdering Facility: [facility] Address: [address] [place] [address] Result Comment: 40-5 9 mg/dL, Acceptable>59 mg/dL, High: Negative risk factor for coronary heart disease<40 mg/dL, Low: Positive risk factor for coronary heart disease Performed By: #### L IPNF ####[facility] LABIA [id number] [place] [address] [place] LDL CHOLESTEROL, NF 49 mg/dL Normal <[address] [facility] Comment on above: Order Comment: Luis velez Type: BLOOD SPECIMENOrdering Facility: [facility] Address: [address] [place] [address] Result Comment: <100 mg/dL, Optimal 100-129 mg/dL, Near optimal/above optimal 130-159 mg/dL, Borderline high 160-189 mg/dL, High>189 mg/dL, Very highSecondary prevention optimal LDL Cholesterol levels are recommended to be < 70 mg/dL Performed By: #### L IPNF ####[facility] LABCLIA [id number] [address] OF [facility] LDL/HDL RATIO, NF 0.68 mg/dL Normal <2.54 [facility] Comment on above: Order Comment: Speci men Type: BLOOD SPECIMENOrdering Facility: [facility] Address: [address] [place] [address] Result Comment: Refe rence:1. National Cholesterol Education Program ATP III Guideline At-A-Glance Quick Desk Reference: National Heart, Lung, and Blood [place]. National Institutes of Health. 2001: NIH Publication No. 01-3305.2. An International Atherosclerosis Society position paper: global recommendations for the management of dyslipidemia: executive summary, Atherosclerosis. 2014: 232(2):410-413. Performed By: #### L IPNF ####[facility] LABCLIA [id number] [address] [place] [facility] NON HDL CHOL, NF 62 mg/dL Normal <130 [facility] Comment on above: Order Comment: Luis men Type: BLOOD SPECIMENOrdering Facility: [facility] Address: [address] [place] [address] Result Comment: <130 mg/dL, Optimal 130-159 mg/dL, Near optimal/above optimal 160-189 mg/dL, Borderline high 190-219 mg/dL, High>219 mg/dL, Very highSecondary prevention optimal non HDL Cholesterol levels are recommended to be <100 mg/dL Performed By: #### L IPNF ####[facility] LABCLIA [id number] [address] OF [facility] T CHOL/HDL RATIO NF 1.86 mg/dL Normal <5.[address] [facility] Comment on above: Order Comment: Marii men Type: BLOOD SPECIMENOrdering Facility: [facility] Address: [address] [place] [address] Performed By: #### L IPNF ####[facility] LABCLIA [id number] [place] [address] [place] TRIGLYCERIDES, NF 64 mg/dL Normal <150 [facility] Comment on above: Order Comment: Speci men Type: BLOOD SPECIMENOrdering Facility: [facility] Address: [address] [place] [address] Result Comment: <150 mg/dL, Normal 150-199 mg/dL, Borderline high 200-499 mg/dL, High>499 mg/dL, Very high Performed By: #### L IPNF ####[facility] LABCLIA [id number] [place] [address] [place] VLDL CHOLESTEROL, NF 13 mg/dL Normal <30 [facility] Comment on above: Order Comment: Speci men Type: BLOOD SPECIMENOrdering Facility: [facility] Address: [address] [place] [address] Performed By: #### L IPNF ####[facility] LABCLIA [id number] [place] [address] [place] Urinalysis complete panel (U )on 07-29-2024 BACTERIA UL 4010.0 uL High Negative [facility] Comment on above: Order Comment: Speci men Type: URINE SPECIMENOrdering Facility: [facility] Address: [address] [place] [address] Performed By: #### 2 4356-8 ####[facility] LABCLIA [id number] [place] [id number] [place] Bilirubin Ql (U) Negative Normal Negative [facility] Comment on above: Order Comment: Speci men Type: URINE SPECIMENOrdering Facility: [facility] Address: [address] [place] [address] Performed By: #### 2 4356-8 ####[facility] LABCLIA [id number] [address] [place] [address] [place] Clarity (Unsp spec) Cloudy Abnormal Clear [place] Comment on above: Order Comment: Speci men Type: URINE SPECIMENOrdering Facility: [facility] Address: [address] [place] [address] Performed By: #### 2 4356-8 ####[facility] LABCLIA [id number] [address] [place] [address] [place] Color (U) Dark Yellow Abnormal Yellow [facility] Comment on above: Order Comment: Speci men Type: URINE SPECIMENOrdering Facility: [facility] Address: [address] [place] [address] Performed By: #### 2 4356-8 ####[facility] LABCLIA [id number] [address] [place] [address] [place] Epithelial cells LM.HPF (Urine sed) [#/Area] Moderate Normal [facility] Comment on above: Order Comment: Speci men Type: URINE SPECIMENOrdering Facility: [facility] Address: [address] [place] [address] Performed By: #### 2 4356-8 ####[facility] LABCLIA [id number] [address] [place] [address] [place] Glucose Test strip (U) [Mass/Vol] Negative Normal Negative [facility] Comment on above: Order Comment: Speci men Type: URINE SPECIMENOrdering Facility: [facility] Address: [address] [place] [address] Performed By: #### 2 4356-8 ####[facility] LABCLIA [id number] [address] [place] [address] [place] Hemoglobin Ql (U) Negative Normal Negative [facility] Comment on above: Order Comment: Speci men Type: URINE SPECIMENOrdering Facility: [facility] Address: [address] [place] [address] Performed By: #### 2 4356-8 ####[facility] LABCLIA [id number] [address] [place] [address] [place] Hyaline casts (Urine sed) [#/Area] 0 /[LPF] Normal 0 /LPF [facility] Comment on above: Order Comment: Speci men Type: URINE SPECIMENOrdering Facility: [facility] Address: [address] [place] [address] Performed By: #### 2 4356-8 ####[facility] LABCLIA [id number] [address] [place] [address] [place] Ketones Ql (U) Negative Normal Negative [facility] Comment on above: Order Comment: Speci men Type: URINE SPECIMENOrdering Facility: [facility] Address: [address] [place] [address] Performed By: #### 2 4356-8 ####[facility] LABCLIA [id number] [address], [place] [address] [place] Leukocyte esterase Test strip Ql (U) 1+ Abnormal Negative [facility] Comment on above: Order Comment: Speci men Type: URINE SPECIMENOrdering Facility: [facility] Address: [address] [place] [address] Performed By: #### 2 4356-8 ####[facility] LABCLIA [id number] [address], [facility]95 [place] Nitrite Ql (U) Negative Normal Negative [facility] Comment on above: Order Comment: Speci men Type: URINE SPECIMENOrdering Facility: [facility] Address: [address] [place] [address] Performed By: #### 2 4356-8 ####[facility] LABCLIA [id number] [address], [facility]95 [place] pH (U) 7.5 [pH] Normal <8.5 [facility] Comment on above: Order Comment: Speci men Type: URINE SPECIMENOrdering Facility: [facility] Address: [address] [place] [address] Performed By: #### 2 4356-8 ####[facility] LABIA [id number] [place] [address] [place] Protein (U) [Mass/Vol] 1+ Abnormal Negative [facility] Comment on above: Order Comment: Speci men Type: URINE SPECIMENOrdering Facility: [facility] Address: [address] [place] [address] Performed By: #### 2 4356-8 ####[facility] [id number] [place] [address] [place] RBC LM.HPF (Urine sed) [#/Area] 3-5 /HPF Abnormal 0-2 /HPF [facility] Comment on above: Order Comment: Speci men Type: URINE SPECIMENOrdering Facility: [facility] Address: [address] [place] [address] Performed By: #### 2 4356-8 ####[facility] [id number] [place] [address] [place] Specific gravity (U) [Rel density] 1.034 High 1.005-1.030 [facility] Comment on above: Order Comment: Speci men Type: URINE SPECIMENOrdering Facility: [facility] Address: [address] [place] [address] Performed By: #### 2 4356-8 ####[facility] LABIA [id number] [place] [address] [place] Urobilinogen Ql (U) 1.0 EU/dL Normal 0.2-1.0 EU/dL [facility] Comment on above: Order Comment: Speci men Type: URINE SPECIMENOrdering Facility: [facility] Address: [address] [place] [address] Performed By: #### 2 4356-8 ####[facility] LABIA [id number] [place] [address] [place] WBC LM.HPF (Urine sed) [#/Area] 0-5 /HPF Normal 0-5 /HPF [facility] Comment on above: Order Comment: Speci men Type: URINE SPECIMENOrdering Facility: [facility] Address: [address] [place] [address] Performed By: #### 2 4356-8 ####[facility] LABIA [id number] [place] [address] [place] CNPNon 07-27-2024 CNPN Normal [facility] CNPNon 07-19-2024 CNPN Normal [facility] CNPNon 07-06-2024 CNPN Normal [facility] CNPNon 05-26-2024 CNPN Normal [facility] OCT MACULA CIRRUS OU (BOTH E YES)on 05-04-2024 [facility] Radiology Study observation (narrative) [facility] VISUAL FIELD 30-2 OU (BOTH E YES)on 05-04-2024 [facility] Radiology Study observation (narrative) [facility] CNOVon 04-08-2024 CNOV Normal [facility] PAIN PANEL, UR QUANTon 04-08 1-Jpoiocrkuu-8,5-Dime thyl-3,3-Diphenylpyrr olidine (EDDP) Confirm (U) [Mass/Vol] <6 Normal <6 [facility] Comment on above: Order Comment: Speci men Type: URINE SPECIMENOrdering Facility: [facility] Address: [address] [place] [address] Result Comment: EDDP is a metabolite of methadone. Performed By: #### L [id number] ####[facility] LABIA [id number] [place] [address] [place] 6-Monoacetylmorphine (6-JANENE) (U) [Mass/Vol] <5 Normal <5 [facility] Comment on above: Order Comment: Speci men Type: URINE SPECIMENOrdering Facility: [facility] Address: [address] [place] [address] Result Comment: 6-MA M (6-monoacetylmorphine, also known as 6-acetylmorphine) is a unique metabolite of heroin. Presence of 6-JANENE indicates use of heroin. 6-JANENE is further metabolized to morphine and absence of 6-JANENE does not rule out the use of heroin. Performed By: #### L [id number] ####[facility] LABIA [id number] [place] [address] [place] Amphetamine Confirm (U) [Mass/Vol] <5 Normal <5 [facility] Comment on above: Order Comment: Speci men Type: URINE SPECIMENOrdering Facility: [facility] Address: [address] [place] [address] Performed By: #### L [id number] ####[facility] LABIA [id number] [place] [address] [place] Benzoylecgonine Confirm (U) [Mass/Vol] <24 Normal <24 [facility] Comment on above: Order Comment: Speci men Type: URINE SPECIMENOrdering Facility: [facility] Address: [address] [place] [address] Result Comment: Jim oylecgonine is a metabolite of cocaine. Performed By: #### L [id number] ####[facility] LABIA [id number] [place] [address] [place] Buprenorphine (U) [Mass/Vol] <20 Normal <20 [facility] Comment on above: Order Comment: Speci men Type: URINE SPECIMENOrdering Facility: [facility] Address: [address] [place] [address] Performed By: #### L [id number] ####[facility] LABIA [id number] [place] [address] [place] Cannabinoids Confirm (U) [Mass/Vol] <16 Normal <16 [facility] Comment on above: Order Comment: Speci men Type: URINE SPECIMENOrdering Facility: [facility] Address: [address] [place] [address] Result Comment: Tetr ahydrocannabinol carboxylic acid (THCA) is a metabolite of vknna-6-rnyzkxqjrtyuuawdtegx which is the main active component of marijuana. Performed By: #### L [id number] ####[facility] [id number] [place] [address] [place] Codeine Confirm (U) [Mass/Vol] <11 Normal <11 [facility] Comment on above: Order Comment: Speci men Type: URINE SPECIMENOrdering Facility: [facility] Address: [address] [place] [address] Performed By: #### L [id number] ####[facility] [id number] [place] [address] [place] Dihydrocodeine Confirm (U) [Mass/Vol] <5 Normal <5 [facility] Comment on above: Order Comment: Speci men Type: URINE SPECIMENOrdering Facility: [facility] Address: [address] [place] [address] Performed By: #### L [id number] ####[facility] [id number] [place] [address] [place] fentaNYL Confirm (U) [Mass/Vol] <6 Normal <6 [facility] Comment on above: Order Comment: Speci men Type: URINE SPECIMENOrdering Facility: [facility] Address: [address] [place] [address] Performed By: #### L [id number] ####[facility] [id number] [place] [address] [place] HYDROcodone Confirm (U) [Mass/Vol] <8 Normal <8 [facility] Comment on above: Order Comment: Speci men Type: URINE SPECIMENOrdering Facility: [facility] Address: [address] [place] [address] Result Comment: Hydr ocodone is a metabolite of dihydrocodeine. Performed By: #### L [id number] ####[facility] LABIA [id number] [place] [address] [place] HYDROmorphone Confirm (U) [Mass/Vol] <5 Normal <5 [facility] Comment on above: Order Comment: Speci men Type: URINE SPECIMENOrdering Facility: [facility] Address: [address] [place] [address] Result Comment: Hydr omorphone is a metabolite of hydrocodone. Performed By: #### L [id number] ####[facility] [id number] [place] [address] [place] Methadone Confirm (U) [Mass/Vol] <16 Normal <16 [facility] Comment on above: Order Comment: Speci men Type: URINE SPECIMENOrdering Facility: [facility] Address: [address] [place] [address] Performed By: #### L [id number] ####[facility] [id number] [place] [address] [place] Methamphetamine Confirm (U) [Mass/Vol] <8 Normal <8 [facility] Comment on above: Order Comment: Speci men Type: URINE SPECIMENOrdering Facility: [facility] Address: [address] [place] [address] Performed By: #### L [id number] ####[facility] [id number] [place] [address] [place] Morphine Confirm (U) [Mass/Vol] <10 Normal <10 [facility] Comment on above: Order Comment: Speci men Type: URINE SPECIMENOrdering Facility: [facility] Address: [address] [place] [address] Result Comment: Morp yolis is a metabolite of codeine and heroin. Performed By: #### L [id number] ####[facility] [id number] [place] [address] [place] Norbuprenorphine (U) [Mass/Vol] <20 Normal <20 [facility] Comment on above: Order Comment: Speci men Type: URINE SPECIMENOrdering Facility: [facility] Address: [address] [place] [address] Result Comment: Norb uprenorphine is the primary active metabolite of buprenorphine. Performed By: #### L [id number] ####[facility] [id number] [address] [place] Norfentanyl Confirm (U) [Mass/Vol] <6 Normal <6 [facility] Comment on above: Order Comment: Speci men Type: URINE SPECIMENOrdering Facility: [facility] Address: [address] [place] [address] Result Comment: Norf entanyl is a metabolite of fentanyl. Performed By: #### L [id number] ####[facility] [id number] [address] [place] Nortramadol (U) [Mass/Vol] <20 Normal <20 [facility] Comment on above: Order Comment: Speci men Type: URINE SPECIMENOrdering Facility: [facility] Address: [address] [place] [address] Result Comment: Desm ethyltramadol is a metabolite of tramadol. Performed By: #### L [id number] ####[facility] [id number] [place] [address] [place] NOTE,UR PAIN CHU Normal [facility] Comment on above: Order Comment: Speci men Type: URINE SPECIMENOrdering Facility: [facility] Address: [address] [place] [address] Result Comment: This test is for medical use only.This test was developed, and its performance characteristics determined by the [facility] Department of Pathology and Laboratory Medicine. It has not been cleared or approved by the FDA. The [facility] Department of Pathology and Laboratory Medicine is regulated under CLIA as qualified to perform high-complexity testing. This test is used for clinical purposes. It should not be regarded as investigational or for research. Performed By: #### L [id number] ####[facility] LABCLIA [id number] [address] [place] oxyCODONE Confirm (U) [Mass/Vol] <10 Normal <10 [facility] Comment on above: Order Comment: Speci men Type: URINE SPECIMENOrdering Facility: [facility] Address: [address] [place] [address] Performed By: #### L [id number] ####[facility] LABIA [id number] [place] [address] [place] oxyMORphone Confirm (U) [Mass/Vol] 17 ng/mL High <5 [facility] Comment on above: Order Comment: Speci men Type: URINE SPECIMENOrdering Facility: [facility] Address: [address] [place] [address] Result Comment: Oxym orphone may arise from oxymorphone containing drugs or by metabolism of oxycodone. Performed By: #### L [id number] ####[facility] LABIA [id number] [place] [address] [place] traMADol Confirm (U) [Mass/Vol] <25 Normal <25 [facility] Comment on above: Order Comment: Speci men Type: URINE SPECIMENOrdering Facility: [facility] Address: [address] [place] [address] Performed By: #### L [id number] ####[facility] LABCLIA [id number] [place] [address] [place] SPECIMEN VALIDITY, URINEon 1 06-09-2023 CHROMATE,URINE <10 Normal <50 [facility] Comment on above: Order Comment: Speci men Type: URINE SPECIMENOrdering Facility: [facility] Address: [address] [place] [address] Performed By: #### L [id number] ####[facility] LABCLIA [id number] [place] [address] [place] CREATININE,URINE 109.3 mg/dL Normal 20.0-300.0 [facility] Comment on above: Order Comment: Speci men Type: URINE SPECIMENOrdering Facility: [facility] Address: [address] [place] [address] Performed By: #### L [id number] ####[facility] LABCLIA [id number] [place] [address] [place] NITRITES,URINE 66 mg/L Normal <500 [facility] Comment on above: Order Comment: Speci men Type: URINE SPECIMENOrdering Facility: [facility] Address: [address] [place] [address] Performed By: #### L [id number] ####[facility] LABCLIA [id number] [place] [address] [place] OXIDANTS,URINE 84 mg/L Normal <200 [facility] Comment on above: Order Comment: Speci men Type: URINE SPECIMENOrdering Facility: [facility] Address: [address] [place] [address] Performed By: #### L [id number] ####[facility] LABCLIA [id number] [place] [address] [place] pH (U) 5.6 [pH] Normal 4.5-8.0 [facility] Comment on above: Order Comment: Speci men Type: URINE SPECIMENOrdering Facility: [facility] Address: [address] [place] [address] Performed By: #### L [id number] ####[facility] LABCLIA [id number] [place] [address] [place] SPEC GRAVITY,UR 1.016 Normal 1.003-1.035 [facility] Comment on above: Order Comment: Speci men Type: URINE SPECIMENOrdering Facility: [facility] Address: [address] [place] [address] Performed By: #### L [id number] ####[facility] LABCLIA [id number] [place] [address] [place] SPECIMEN VALIDITY QUALITY Specimen quality results within acceptable limits Normal [facility] Comment on above: Order Comment: Speci men Type: URINE SPECIMENOrdering Facility: [facility] Address: [address] [place] [address] Performed By: #### L [id number] ####[facility] LABIA [id number] [address] [place] TOXICOLOGY SCREEN, ROUTINE U RINEon 04-08-2024 Amphetamines Confirm (U) [Mass/Vol] Negative Negative [facility] Comment on above: Cutoff threshold at 1000 ng/mL. Barbiturates Urine Negative Negative [facility] Comment on above: Cutoff threshold at 200 ng/mL. Benzodiazepines Urine Negative Negative [facility] Comment on above: Cutoff threshold at 200 ng/mL. Cannabinoids Screen Ql (U) Negative Negative [facility] Comment on above: Cutoff threshold at 50 ng/mL. Cocaine Ql (U) Negative Negative [facility] Comment on above: Cutoff threshold at 300 ng/mL. Ethanol (U) [Mass/Vol] mg/dL NINF - 11 mg/dL [facility] Interpretation and review of laboratory results Normal [facility] Opiates Screen Ql (U) Negative Negative [facility] Comment on above: Cutoff threshold at 300 ng/mL. oxyCODONE cutoff Screen (U) [Mass/Vol] Negative Negative [facility] Comment on above: Cutoff threshold at 100 ng/mL. Phencyclidine Ql (U) Negative Negative [facility] Comment on above: Cutoff threshold at 25 [...] on the same specimen through Client Services ([phone]) if contacted within 48 hours of initial testing. [1]Substance Abuse and Mental Health Services Administration (2012). Clinical Drug Testing in Primary Care Technical Assistance Publication Series 32. Department of Health and Human Services, [place], p.10. [facility] Amphetamines Confirm (U) [Mass/Vol] Negative Normal Negative [facility] Comment on above: Order Comment: Speci men Type: URINE SPECIMENOrdering Facility: [facility] Address: [address] [place] [address] Result Comment: Cuto ff threshold at 1000 ng/mL. Performed By: #### U TOX2 ####[facility] LABIA [id number] [place] [address] [place] BARBITURATES, URINE Negative Normal Negative [facility] Comment on above: Order Comment: Speci men Type: URINE SPECIMENOrdering Facility: [facility] Address: [address] [place] [address] Result Comment: Cuto ff threshold at 200 ng/mL. Performed By: #### U TOX2 ####[facility] LABCLIA [id number] [place] [address] [place] BENZODIAZEPINES, UR Negative Normal Negative [facility] Comment on above: Order Comment: Speci men Type: URINE SPECIMENOrdering Facility: [facility] Address: [address] [place] [address] Result Comment: Cuto ff threshold at 200 ng/mL. Performed By: #### U TOX2 ####[facility] LABCLIA [id number] [place] [address] [place] Cannabinoids Screen Ql (U) Negative Normal Negative [facility] Comment on above: Order Comment: Speci men Type: URINE SPECIMENOrdering Facility: [facility] Address: [address] [place] [address] Result Comment: Cuto ff threshold at 50 ng/mL. Performed By: #### U TOX2 ####[facility] LABCLIA [id number] [place] [address] [place] Cocaine Ql (U) Negative Normal Negative [facility] Comment on above: Order Comment: Speci men Type: URINE SPECIMENOrdering Facility: [facility] Address: [address] [place] [address] Result Comment: Cuto ff threshold at 300 ng/mL. Performed By: #### U TOX2 ####[facility] LABCLIA [id number] [place] [address] [place] Ethanol (U) [Mass/Vol] <11 Normal <11 [facility] Comment on above: Order Comment: Speci men Type: URINE SPECIMENOrdering Facility: [facility] Address: [address] [place] [address] Performed By: #### U TOX2 ####[facility] LABCLIA [id number] [place] [address] [place] Opiates Screen Ql (U) Negative Normal Negative [facility] Comment on above: Order Comment: Speci men Type: URINE SPECIMENOrdering Facility: [facility] Address: [address] [place] [address] Result Comment: Cuto ff threshold at 300 ng/mL. Performed By: #### U TOX2 ####[facility] LABCLIA [id number] [place] [address] [place] oxyCODONE cutoff Screen (U) [Mass/Vol] Negative Normal Negative [facility] Comment on above: Order Comment: Speci men Type: URINE SPECIMENOrdering Facility: [facility] Address: [address] [place] [address] Result Comment: Cuto ff threshold at 100 ng/mL. Performed By: #### U TOX2 ####[facility] LABCLIA [id number] [place] [address] [place] Phencyclidine Ql (U) Negative Normal Negative [facility] Comment on above: Order Comment: Speci men Type: URINE SPECIMENOrdering Facility: [facility] Address: [address] [place] [address] Result Comment: Cuto ff threshold at 25 ng/mL. Performed By: #### U TOX2 ####[facility] LABCLIA [id number] [facility] [place] [address] [place] CNPNon 03-30-2024 CNPN Normal [facility] CNOVon 03-29-2024 CNOV Normal [facility] CNPNon 03-28-2024 CNPN Normal [facility] CNPNon 03-21-2024 CNPN Normal [facility] CNPNon 03-11-2024 CNPN Normal [facility] CNOVon 03-08-2024 CNOV Normal [facility] XR LUMBAR 2V AP/LATon 2023 XR LUMBAR 2V AP/LAT Normal [facility] CNCOon 03-07-2024 CNCO Letter Text Normal [facility] CNPNon 03-04-2024 CNPN Normal [facility] CNPNon 03-02-2024 CNPN Normal [facility] CNOVon 02-26-2024 CNOV Normal [facility] CNOVon 02-24-2024 CNOV Normal [facility] Basic metabolic 2000 panelon 02-22-2024 Anion gap [Moles/Vol] 6 mmol/L Normal 5-16 [facility] Comment on above: Order Comment: Speci men Type: BLOOD SPECIMENOrdering Facility: [facility] Address: [address] [place] [address] Performed By: #### 2 4321-2 ####[facility] LABORATORYCLIA [id number] [place] [address] [place] Calcium [Mass/Vol] 9.6 mg/dL Normal 8.5-10.5 [facility] Comment on above: Order Comment: Speci men Type: BLOOD SPECIMENOrdering Facility: [facility] Address: [address] [place] [address] Performed By: #### 2 4321-2 ####[facility] LABORATORYCLIA [id number] [place] [address] [place] Chloride [Moles/Vol] 108 mmol/L High 98-107 [facility] Comment on above: Order Comment: Speci men Type: BLOOD SPECIMENOrdering Facility: [facility] Address: [address] [place] [address] Performed By: #### 2 4321-2 ####[facility] LABORATORYCLIA [id number] [place] [address] [place] CO2 [Moles/Vol] 25 mmol/L Normal 21-32 [facility] Comment on above: Order Comment: Speci men Type: BLOOD SPECIMENOrdering Facility: [facility] Address: [address] [place] [address] Performed By: #### 2 4321-2 ####[facility] LABORATORYCLIA [id number] [place] [address] [place] Creatinine [Mass/Vol] 0.48 mg/dL Low 0.51-0.95 [facility] Comment on above: Order Comment: Speci men Type: BLOOD SPECIMENOrdering Facility: [facility] Address: [address] [place] [address] Result Comment: Ramila ents receiving either N-Acetylcysteine (NAC) or Metamizole prior to venipuncture, may have falsely depressed results. Performed By: #### 2 4321-2 ####[facility] LABORATORYCLIA [id number] [address] [place] Creatinine and Glomerular filtration rate.predicted panel (S/P/Bld) 103 mL/min/1.73m??? Normal >=60 [facility] Comment on above: Order Comment: Speci men Type: BLOOD SPECIMENOrdering Facility: [facility] Address: [address] [place] [address] Result Comment: Julianne mated Glomerular Filtration Rate [...] actual GFR. Performed By: #### 2 4321-2 ####[facility] LABORATORYCLIA [id number] [place] [id number] [place] Glucose [Mass/Vol] 250 mg/dL High 70-100 [facility] Comment on above: Order Comment: Luis velez Type: BLOOD SPECIMENOrdering Facility: [facility] Address: [address] [place] [address] Result Comment: The [place] Diabetes Association (ADA) provides guidance for cutoff [...] Standards of Medical Care in Diabetes 2016, [place] [employer]. Diabetes Care. 2016.39(Suppl 1).Results may be falsely elevated after the administration of Sulfapyridine.Results may be falsely depressed after the administration of Sulfasalazine. Performed By: #### 2 4321-2 ####[facility] LABORATORYCLIA [id number] [place] [id number] [place] Potassium [Moles/Vol] 4.0 mmol/L Normal 3.5-5.1 [facility] Comment on above: Order Comment: Luis velez Type: BLOOD SPECIMENOrdering Facility: [facility] Address: [address] [place] [address] Performed By: #### 2 4321-2 ####[facility] LABORATORYCLIA [id number] [place] [id number] [place] Sodium [Moles/Vol] 139 mmol/L Normal 136-145 [facility] Comment on above: Order Comment: Luis velez Type: BLOOD SPECIMENOrdering Facility: [facility] Address: [address] [facility] [address] [id number] Performed By: #### 2 4321-2 ####[facility] LABORATORYCLIA [id number] [place] [id number] [place] Urea nitrogen [Mass/Vol] 10 mg/dL Normal 11-19 [facility] Comment on above: Order Comment: Speci men Type: BLOOD SPECIMENOrdering Facility: [facility] Address: [address] [place] [address] Performed By: #### 2 4321-2 ####[facility] LABORATORYCLIA [id number] [place] [id number] [facility] [place] CASE MANAGEMon 02-22-2024 CASE MANAGEM Normal [facility] CBC panel Auto (Bld)on 02-21 Erythrocyte distribution width (RBC) [Ratio] 13.2 % Normal 11.5-15.0 [facility] Comment on above: Order Comment: Speci men Type: BLOOD SPECIMENOrdering Facility: [facility] Address: [address] [place] [address] Performed By: #### 5 8410-2 ####[facility] LABORATORYCLIA [id number] [place] [address] [place] Hematocrit (Bld) [Volume fraction] 33.0 % Low 36.0-46.0 [facility] Comment on above: Order Comment: Speci men Type: BLOOD SPECIMENOrdering Facility: [facility] Address: [address] [facility] [place] [address] Performed By: #### 5 8410-2 ####[facility] LABORATORYCLIA [id number] [place] [id number] [place] Hemoglobin (Bld) [Mass/Vol] 10.9 g/dL Low 11.5-15.5 [facility] Comment on above: Order Comment: Speci men Type: BLOOD SPECIMENOrdering Facility: [facility] Address: [address] [place] [address] Performed By: #### 5 8410-2 ####[facility] LABORATORYCLIA [id number] [address] [place] MCH (RBC) [Entitic mass] 31.1 pg Normal 26.0-34.0 [facility] Comment on above: Order Comment: Speci men Type: BLOOD SPECIMENOrdering Facility: [facility] Address: [address] [place], [place] [address] Performed By: #### 5 8410-2 ####[facility] LABORATORYCLIA [id number] [place] [address] [place] MCHC (RBC) [Mass/Vol] 33.0 g/dL Normal 30.5-36.0 [facility] Comment on above: Order Comment: Speci men Type: BLOOD SPECIMENOrdering Facility: [facility] Address: [address] [place] [address] Performed By: #### 5 8410-2 ####[facility] LABORATORYCLIA [id number] [address] [place] MCV (RBC) [Entitic vol] 94.0 fL Normal 80.0-100.0 [facility] Comment on above: Order Comment: Speci men Type: BLOOD SPECIMENOrdering Facility: [facility] Address: [address] [place] [address] Performed By: #### 5 8410-2 ####[facility] LABORATORYCLIA [id number] [address] [place] Nucleated RBC (Bld) [#/Vol] 10*3/uL Normal <0.01 [facility] Comment on above: Order Comment: Speci men Type: BLOOD SPECIMENOrdering Facility: [facility] Address: [address] [place], [place] [address] Performed By: #### 5 8410-2 ####[facility] LABORATORYCLIA [id number] [address] [place] Platelet mean volume (Bld) [Entitic vol] 9.4 fL Normal 9.0-12.7 [facility] Comment on above: Order Comment: Speci men Type: BLOOD SPECIMENOrdering Facility: [facility] Address: [address] [place] [address] Performed By: #### 5 8410-2 ####[facility] LABORATORYCLIA [id number] [place] [id number] [facility] Platelets (Bld) [#/Vol] 263 10*3/uL Normal 150-400 [facility] Comment on above: Order Comment: Speci men Type: BLOOD SPECIMENOrdering Facility: [facility] Address: [address] [place] [address] Performed By: #### 5 8410-2 ####[facility] LABORATORYCLIA [id number] [place] [id number] [place] RBC (Bld) [#/Vol] 3.51 10*6/uL Low 3.90-5.20 [facility] Comment on above: Order Comment: Speci men Type: BLOOD SPECIMENOrdering Facility: [facility] Address: [address] [place] [address] Performed By: #### 5 8410-2 ####[facility] LABORATORYCLIA [id number] [place] [id number] [facility] [place] WBC (Bld) [#/Vol] 5.71 10*3/uL Normal 3.70-11.00 [facility] Comment on above: Order Comment: Speci men Type: BLOOD SPECIMENOrdering Facility: [facility] Address: [address] [place], [place] [address] Performed By: #### 5 8410-2 ####[facility] LABORATORYCLIA [id number] [place] [id number] [facility] [place] CNDSon 02-22-2024 CNDS Normal [facility] CONSULT PROGon 02-22-2024 CONSULT PROG Normal [facility] Basic metabolic 2000 panelon 02-21-2024 Anion gap [Moles/Vol] 5 mmol/L Normal 5-16 [facility] Comment on above: Order Comment: Speci men Type: BLOOD SPECIMENOrdering Facility: [facility] Address: [address] [place] [address] Performed By: #### 2 4321-2 ####[facility] LABORATORYCLIA [id number] [place] [id number] [place] Calcium [Mass/Vol] 9.1 mg/dL Normal 8.5-10.5 [facility] Comment on above: Order Comment: Speci men Type: BLOOD SPECIMENOrdering Facility: [facility] Address: [address] [place] [address] Performed By: #### 2 4321-2 ####[facility] LABORATORYCLIA [id number] [place] [id number] [place] Chloride [Moles/Vol] 108 mmol/L High 98-107 [facility] Comment on above: Order Comment: Speci men Type: BLOOD SPECIMENOrdering Facility: [facility] Address: [address] [place] [address] Performed By: #### 2 4321-2 ####[facility] LABORATORYCLIA [id number] [place] [id number] [place] CO2 [Moles/Vol] 26 mmol/L Normal 21-32 [facility] Comment on above: Order Comment: Speci men Type: BLOOD SPECIMENOrdering Facility: [facility] Address: [address] [place] [address] Performed By: #### 2 4321-2 ####[facility] LABORATORYCLIA [id number] [place] [id number] [place] Creatinine [Mass/Vol] 0.54 mg/dL Normal 0.51-0.95 [facility] Comment on above: Order Comment: Speci men Type: BLOOD SPECIMENOrdering Facility: [facility] Address: [address] [place] [address] Result Comment: Ramila ents receiving either N-Acetylcysteine (NAC) or Metamizole prior to venipuncture, may have falsely depressed results. Performed By: #### 2 4321-2 ####[facility] LABORATORYCLIA [id number] [place] [id number] [place] Creatinine and Glomerular filtration rate.predicted panel (S/P/Bld) 100 mL/min/1.73m??? Normal >=60 [facility] Comment on above: Order Comment: Luis velez Type: BLOOD SPECIMENOrdering Facility: [facility] Address: [address] [place] [address] [place] [address] Result Comment: Julianne mated Glomerular Filtration Rate [...] actual GFR. Performed By: #### 2 4321-2 ####[facility] LABORATORYCLIA [id number] [place] [id number] [place] Glucose [Mass/Vol] 101 mg/dL High 70-100 [facility] Comment on above: Order Comment: Luis velez Type: BLOOD SPECIMENOrdering Facility: [facility] Address: [address] [place], [place] [address] [address] Result Comment: The [place] Diabetes Association (ADA) provides guidance for cutoff [...] Standards of Medical Care in Diabetes 2016, [place] [employer]. Diabetes Care. 2016.39(Suppl 1).Results may be falsely elevated after the administration of Sulfapyridine.Results may be falsely depressed after the administration of Sulfasalazine. Performed By: #### 2 4321-2 ####[facility] LABORATORYCLIA [id number] [place] [id number] [place] Potassium [Moles/Vol] 4.1 mmol/L Normal 3.5-5.1 [facility] Comment on above: Order Comment: Speci men Type: BLOOD SPECIMENOrdering Facility: [facility] Address: [address] [place] [address] Performed By: #### 2 4321-2 ####[facility] LABORATORYCLIA [id number] [place] [id number] [place] Sodium [Moles/Vol] 139 mmol/L Normal 136-145 [facility] Comment on above: Order Comment: Speci men Type: BLOOD SPECIMENOrdering Facility: [facility] Address: [address] [place] [address] Performed By: #### 2 4321-2 ####[facility] LABORATORYCLIA [id number] [place] [id number] [place] Urea nitrogen [Mass/Vol] 13 mg/dL Normal 7- [facility] Comment on above: Order Comment: Speci men Type: BLOOD SPECIMENOrdering Facility: [facility] Address: [address] [place] [address] Performed By: #### 2 4321-2 ####[facility] LABORATORYCLIA [id number] [place] [id number] [place] CASE MANAGEMon 02-21-2024 CASE MANAGEM Normal [facility] CBC panel Auto (Bld)on 02-20 Erythrocyte distribution width (RBC) [Ratio] 13.2 % Normal 11.5-15.0 [facility] Comment on above: Order Comment: Speci men Type: BLOOD SPECIMENOrdering Facility: [facility] Address: [address] [place] [address] Performed By: #### 5 8410-2 ####[facility] LABORATORYCLIA [id number] [place] [id number] [place] Hematocrit (Bld) [Volume fraction] 33.2 % Low 36.0-46.0 [facility] Comment on above: Order Comment: Speci men Type: BLOOD SPECIMENOrdering Facility: [facility] Address: [address] [place] [address] Performed By: #### 5 8410-2 ####[facility] LABORATORYCLIA [id number] [address] [place] Hemoglobin (Bld) [Mass/Vol] 10.4 g/dL Low 11.5-15.5 [facility] Comment on above: Order Comment: Speci men Type: BLOOD SPECIMENOrdering Facility: [facility] Address: [address] [place] [address] Performed By: #### 5 8410-2 ####[facility] LABORATORYCLIA [id number] [address] MCH (RBC) [Entitic mass] 30.3 pg Normal 26.0-34.0 [facility] Comment on above: Order Comment: Speci men Type: BLOOD SPECIMENOrdering Facility: [facility] Address: [address] [place] [address] Performed By: #### 5 8410-2 ####[facility] LABORATORYCLIA [id number] [address] MCHC (RBC) [Mass/Vol] 31.3 g/dL Normal 30.5-36.0 [facility] Comment on above: Order Comment: Speci men Type: BLOOD SPECIMENOrdering Facility: [facility] Address: [address] [place] [address] Performed By: #### 5 8410-2 ####[facility] LABORATORYCLIA [id number] [address] [place] MCV (RBC) [Entitic vol] 96.8 fL Normal 80.0-100.0 [facility] Comment on above: Order Comment: Speci men Type: BLOOD SPECIMENOrdering Facility: [facility] Address: [address] [place] [address] Performed By: #### 5 8410-2 ####[facility] LABORATORYCLIA [id number] [address] Nucleated RBC (Bld) [#/Vol] 10*3/uL Normal <0.01 [facility] Comment on above: Order Comment: Speci men Type: BLOOD SPECIMENOrdering Facility: [facility] Address: [address] [place] [id number] Performed By: #### 5 8410-2 ####[facility] LABORATORYCLIA [id number] [place] [id number] [place] Platelet mean volume (Bld) [Entitic vol] 9.7 fL Normal 9.0-12.7 [facility] Comment on above: Order Comment: Speci men Type: BLOOD SPECIMENOrdering Facility: [facility] Address: [address] [place] [address] Performed By: #### 5 8410-2 ####[facility] LABORATORYCLIA [id number] [place] [id number] [facility] [place] Platelets (Bld) [#/Vol] 271 10*3/uL Normal 150-400 [facility] Comment on above: Order Comment: Speci men Type: BLOOD SPECIMENOrdering Facility: [facility] Address: [address] [place] [address] Performed By: #### 5 8410-2 ####[facility] LABORATORYCLIA [id number] [place] [address] [place] RBC (Bld) [#/Vol] 3.43 10*6/uL Low 3.90-5.20 [facility] Comment on above: Order Comment: Speci men Type: BLOOD SPECIMENOrdering Facility: [facility] Address: [address] [place] [address] Performed By: #### 5 8410-2 ####[facility] LABORATORYCLIA [id number] [place] [address] [place] WBC (Bld) [#/Vol] 6.65 10*3/uL Normal 3.70-11.00 [facility] Comment on above: Order Comment: Speci men Type: BLOOD SPECIMENOrdering Facility: [facility] Address: [address] [place] [address] Performed By: #### 5 8410-2 ####[facility] LABORATORYCLIA [id number] [place] [id number] [place] CONSULT PROGon 10-27-2024 CONSULT PROG Normal [facility] THERAPY NTon 02-21-2024 THERAPY NT Normal [facility] CBC panel Auto (Bld)on 02-19 Erythrocyte distribution width (RBC) [Ratio] 13.2 % Normal 11.5-15.0 [facility] Comment on above: Order Comment: Speci men Type: BLOOD SPECIMENOrdering Facility: [facility] Address: [address] [place] [address] Performed By: #### 5 8410-2 ####[facility] LABORATORYCLIA [id number] [address] [place] Hematocrit (Bld) [Volume fraction] 32.5 % Low 36.0-46.0 [facility] Comment on above: Order Comment: Speci men Type: BLOOD SPECIMENOrdering Facility: [facility] Address: [address] [place] [address] Performed By: #### 5 8410-2 ####[facility] LABORATORYCLIA [id number] [address] [place] Hemoglobin (Bld) [Mass/Vol] 10.4 g/dL Low 11.5-15.5 [facility] Comment on above: Order Comment: Speci men Type: BLOOD SPECIMENOrdering Facility: [facility] Address: [address] [place] [address] Performed By: #### 5 8410-2 ####[facility] LABORATORYCLIA [id number] [place] [address] [place] MCH (RBC) [Entitic mass] 30.9 pg Normal 26.0-34.0 [facility] Comment on above: Order Comment: Speci men Type: BLOOD SPECIMENOrdering Facility: [facility] Address: [address] [place] [address] Performed By: #### 5 8410-2 ####[facility] LABORATORYCLIA [id number] [place] [id number] [place] MCHC (RBC) [Mass/Vol] 32.0 g/dL Normal 30.5-36.0 [facility] Comment on above: Order Comment: Speci men Type: BLOOD SPECIMENOrdering Facility: [facility] Address: [address] [place] [address] Performed By: #### 5 8410-2 ####[facility] LABORATORYCLIA [id number] [place] [id number] [place] MCV (RBC) [Entitic vol] 96.4 fL Normal 80.0-100.0 [facility] Comment on above: Order Comment: Speci men Type: BLOOD SPECIMENOrdering Facility: [facility] Address: [address] [place] [address] Performed By: #### 5 8410-2 ####[facility] LABORATORYCLIA [id number] [place] [address] [place] Nucleated RBC (Bld) [#/Vol] 10*3/uL Normal <0.01 [facility] Comment on above: Order Comment: Speci men Type: BLOOD SPECIMENOrdering Facility: [facility] Address: [address] [place] [address] Performed By: #### 5 8410-2 ####[facility] LABORATORYCLIA [id number] [place] [address] [place] Platelet mean volume (Bld) [Entitic vol] 9.7 fL Normal 9.0-12.7 [facility] Comment on above: Order Comment: Speci men Type: BLOOD SPECIMENOrdering Facility: [facility] Address: [address] [place] [address] Performed By: #### 5 8410-2 ####[facility] LABORATORYCLIA [id number] [place] [address] [place] Platelets (Bld) [#/Vol] 251 10*3/uL Normal 150-400 [facility] Comment on above: Order Comment: Speci men Type: BLOOD SPECIMENOrdering Facility: [facility] Address: [address] [place] [address] Performed By: #### 5 8410-2 ####[facility] LABORATORYCLIA [id number] [place] [address] [place] [facility] [place] RBC (Bld) [#/Vol] 3.37 10*6/uL Low 3.90-5.20 [facility] Comment on above: Order Comment: Speci men Type: BLOOD SPECIMENOrdering Facility: [facility] Address: [address] [place] [address] Performed By: #### 5 8410-2 ####[facility] LABORATORYCLIA [id number] [address] WBC (Bld) [#/Vol] 6.60 10*3/uL Normal 3.70-11.00 [facility] Comment on above: Order Comment: Speci men Type: BLOOD SPECIMENOrdering Facility: [facility] Address: [address] [place] [address] Performed By: #### 5 8410-2 ####[facility] LABORATORYCLIA [id number] [address] CONSULT PROGon 02-20-2024 CONSULT PROG Normal [facility] Comprehensive metabolic 2000 panelon 02-20-2024 Albumin [Mass/Vol] 2.5 g/dL Low 3.2-5.0 [facility] Comment on above: Order Comment: Speci men Type: BLOOD SPECIMENOrdering Facility: [facility] Address: [address] [place] [address] Performed By: #### 2 4323-8 ####[facility] LABORATORYCLIA [id number] [place] [address] [place] ALP [Catalytic activity/Vol] 116 U/L Normal 45-117 [facility] Comment on above: Order Comment: Speci men Type: BLOOD SPECIMENOrdering Facility: [facility] Address: [address] [place] [address] Performed By: #### 2 4323-8 ####[facility] LABORATORYCLIA [id number] [address] [place] ALT [Catalytic activity/Vol] 9 U/L Low 13-61 [facility] Comment on above: Order Comment: Speci men Type: BLOOD SPECIMENOrdering Facility: [facility] Address: [address] [place] [address] Result Comment: Resu lts may be falsely depressed after the administration of Sulfasalazine and/or Sulfapyridine. Performed By: #### 2 4323-8 ####[facility] LABORATORYCLIA [id number] [place] [id number] [place] Anion gap [Moles/Vol] 6 mmol/L Normal 5-16 [facility] Comment on above: Order Comment: Speci men Type: BLOOD SPECIMENOrdering Facility: [facility] Address: [address] [place] [address] Performed By: #### 2 4323-8 ####[facility] LABORATORYCLIA [id number] [place] [id number] [place] AST [Catalytic activity/Vol] 21 U/L Normal 8-34 [facility] Comment on above: Order Comment: Speci men Type: BLOOD SPECIMENOrdering Facility: [facility] Address: [address] [place] [address] Result Comment: Resu lts may be falsely depressed after the administration of Sulfasalazine and/or Sulfapyridine. Performed By: #### 2 4323-8 ####[facility] LAB[facility]ATORYCLIA [id number] [place] [address] [place] Bilirubin [Mass/Vol] 0.2 mg/dL Normal 0.2-1.0 [facility] Comment on above: Order Comment: Speci men Type: BLOOD SPECIMENOrdering Facility: [facility] Address: [address] [place] [address] Performed By: #### 2 4323-8 ####[facility] LABORATORYCLIA [id number] [place] [address] [place] Calcium [Mass/Vol] 8.5 mg/dL Normal 8.5-10.5 [facility] Comment on above: Order Comment: Speci men Type: BLOOD SPECIMENOrdering Facility: [facility] Address: [address] [place] [address] Performed By: #### 2 4323-8 ####[facility] LABORATORYCLIA [id number] [place] [address] [place] Chloride [Moles/Vol] 108 mmol/L High 98-107 [facility] Comment on above: Order Comment: Speci men Type: BLOOD SPECIMENOrdering Facility: [facility] Address: [address] [place] [address] Performed By: #### 2 4323-8 ####[facility] LABORATORYCLIA [id number] [place] [address] [place] CO2 [Moles/Vol] 23 mmol/L Normal 21-32 [facility] Comment on above: Order Comment: Speci men Type: BLOOD SPECIMENOrdering Facility: [facility] Address: [address] [place] [address] Performed By: #### 2 4323-8 ####[facility] LABORATORYCLIA [id number] [place] [address] [place] Creatinine [Mass/Vol] 0.64 mg/dL Normal 0.51-0.95 [facility] Comment on above: Order Comment: Speci men Type: BLOOD SPECIMENOrdering Facility: [facility] Address: [address] [place] [address] Result Comment: Ramila ents receiving either N-Acetylcysteine (NAC) or Metamizole prior to venipuncture, may have falsely depressed results. Performed By: #### 2 4323-8 ####[facility] LAB[facility]ATORYCLIA [id number] [place] [address] [place] Creatinine and Glomerular filtration rate.predicted panel (S/P/Bld) 96 mL/min/1.73m??? Normal >=60 [facility] Comment on above: Order Comment: Speci men Type: BLOOD SPECIMENOrdering Facility: [facility] Address: [address] [place] [address] Result Comment: Julianne mated Glomerular Filtration Rate [...] actual GFR. Performed By: #### 2 4323-8 ####[facility] LAB[facility]ATORYCLIA [id number] [place] [id number] [place] Glucose [Mass/Vol] 174 mg/dL High 70-100 [facility] Comment on above: Order Comment: Luis velez Type: BLOOD SPECIMENOrdering Facility: [facility] Address: [address] [place] [address] Result Comment: The [place] [employer] (ADA) provides guidance for cutoff [...] Standards of Medical Care in Diabetes 2016, [place] [employer]. Diabetes Care. 2016.39(Suppl 1).Results may be falsely elevated after the administration of Sulfapyridine.Results may be falsely depressed after the administration of Sulfasalazine. Performed By: #### 2 4323-8 ####[facility] LAB[facility]ATORYCLIA [id number] [place] [address] [place] Potassium [Moles/Vol] 3.9 mmol/L Normal 3.5-5.1 [facility] Comment on above: Order Comment: Luis velez Type: BLOOD SPECIMENOrdering Facility: [facility] Address: [address] [place] [address] Performed By: #### 2 4323-8 ####[facility] LABORATORYCLIA [id number] [place] [id number] [place] Protein [Mass/Vol] 5.4 g/dL Low 6.0-8.5 [facility] Comment on above: Order Comment: Speci men Type: BLOOD SPECIMENOrdering Facility: [facility] Address: [address] [place] [address] Performed By: #### 2 4323-8 ####[facility] LABORATORYCLIA [id number] [place] [id number] [place] Sodium [Moles/Vol] 137 mmol/L Normal 136-145 [facility] Comment on above: Order Comment: Speci men Type: BLOOD SPECIMENOrdering Facility: [facility] Address: [address] [place] [address] Performed By: #### 2 4323-8 ####[facility] LABORATORYCLIA [id number] [place] [address] [place] Urea nitrogen [Mass/Vol] 19 mg/dL Normal 11-19 [facility] Comment on above: Order Comment: Speci men Type: BLOOD SPECIMENOrdering Facility: [facility] Address: [address] [place] [address] Performed By: #### 2 4323-8 ####[facility] LABORATORYCLIA [id number] [address] [place] THERAPY NTon 02-20-2024 THERAPY NT [facility] THERAPY NT [facility] ANES POSTPROC EVALon 024 ANES POSTPROC EVAL Normal [facility] ANES PRE-OPon 02-19-2024 ANES PRE-OP [facility] BRIEF OP NOTon 02-19-2024 BRIEF OP NOT Normal [facility] Bacteria Bld Culton 02-19-20 24 Bacteria identified Cx Nom (Bld) CULTURE, BLOOD: No growth 5 days Normal [facility] Comment on above: Performed By: #### 6 00-7 ####[facility] LABORATORYCLIA [id number] [address] [place] Bacteria identified Cx Nom (Bld) CULTURE, BLOOD: No growth 5 days Normal [facility] Comment on above: Performed By: #### 6 00-7 ####[facility] LABORATORYCLIA [id number] [address] [place] Bacteria Spec Anaerobe Culto n 02-19-2024 Bacteria identified Anaer cx Nom (Unsp spec) Negative Normal [facility] Comment on above: Performed By: #### 6 462-6, 635-3 ####[facility] LAB[facility]ATORYCLIA [id number] [place] [id number] [facility] [place] Bacteria Wnd Culton 02-19-20 24 Bacteria identified Cx Nom (Wound) Abnormal [facility] Comment on above: Performed By: #### 6 462-6, 635-3 ####[facility] LAB[facility]ATORYCLIA [id number] [address] [place] CASE MANAGEMon 02-19-2024 CASE MANAGEM Normal [facility] CBC panel Auto (Bld)on 02-18 Erythrocyte distribution width (RBC) [Ratio] 13.2 % Normal 11.5-15.0 [facility] Comment on above: Order Comment: Speci men Type: BLOOD SPECIMENOrdering Facility: [facility] Address: [address] [place] [address] Performed By: #### 5 8410-2 ####[facility] LAB[facility]ATORYCLIA [id number] [address] [place] Hematocrit (Bld) [Volume fraction] 36.0 % Normal 36.0-46.0 [facility] Comment on above: Order Comment: Speci men Type: BLOOD SPECIMENOrdering Facility: [facility] Address: [address] [place] [address] Performed By: #### 5 8410-2 ####[facility] LAB[facility]ATORYCLIA [id number] [place] [id number] [place] Hemoglobin (Bld) [Mass/Vol] 11.4 g/dL Low 11.5-15.5 [facility] Comment on above: Order Comment: Speci men Type: BLOOD SPECIMENOrdering Facility: [facility] Address: [address] [place] [address] Performed By: #### 5 8410-2 ####[facility] LABORATORYCLIA [id number] [place] [id number] [facility] MCH (RBC) [Entitic mass] 30.3 pg Normal 26.0-34.0 [facility] Comment on above: Order Comment: Speci men Type: BLOOD SPECIMENOrdering Facility: [facility] Address: [address] [place] [address] Performed By: #### 5 8410-2 ####[facility] LABORATORYCLIA [id number] [address] [place] MCHC (RBC) [Mass/Vol] 31.7 g/dL Normal 30.5-36.0 [facility] Comment on above: Order Comment: Speci men Type: BLOOD SPECIMENOrdering Facility: [facility] Address: [address] [place] [address] Performed By: #### 5 8410-2 ####[facility] LABORATORYCLIA [id number] [address] MCV (RBC) [Entitic vol] 95.7 fL Normal 80.0-100.0 [facility] Comment on above: Order Comment: Speci men Type: BLOOD SPECIMENOrdering Facility: [facility] Address: [address] [place] [address] Performed By: #### 5 8410-2 ####[facility] LABORATORYCLIA [id number] [address] [place] Nucleated RBC (Bld) [#/Vol] 10*3/uL Normal <0.01 [facility] Comment on above: Order Comment: Speci men Type: BLOOD SPECIMENOrdering Facility: [facility] Address: [address] [place] [address] Performed By: #### 5 8410-2 ####[facility] LABORATORYCLIA [id number] [address] [place] Platelet mean volume (Bld) [Entitic vol] 10.3 fL Normal 9.0-12.7 [facility] Comment on above: Order Comment: Speci men Type: BLOOD SPECIMENOrdering Facility: [facility] Address: [address] [place] [address] Performed By: #### 5 8410-2 ####[facility] LABORATORYCLIA [id number] [place] [id number] [facility] Platelets (Bld) [#/Vol] 238 10*3/uL Normal 150-400 [facility] Comment on above: Order Comment: Speci men Type: BLOOD SPECIMENOrdering Facility: [facility] Address: [address] [place] [address] Performed By: #### 5 8410-2 ####[facility] LABORATORYCLIA [id number] [place] [address] [place] RBC (Bld) [#/Vol] 3.76 10*6/uL Low 3.90-5.20 [facility] Comment on above: Order Comment: Speci men Type: BLOOD SPECIMENOrdering Facility: [facility] Address: [address] [place] [address] Performed By: #### 5 8410-2 ####[facility] LABORATORYCLIA [id number] [address] [place] WBC (Bld) [#/Vol] 5.53 10*3/uL Normal 3.70-11.00 [facility] Comment on above: Order Comment: Speci men Type: BLOOD SPECIMENOrdering Facility: [facility] Address: [address] [place] [address] Performed By: #### 5 8410-2 ####[facility] LABORATORYCLIA [id number] [place] [id number] [facility] [place] CK SerPl-cCncon 02-19-2024 CK [Catalytic activity/Vol] 56 U/L Normal 28-152 [facility] Comment on above: Order Comment: Speci men Type: BLOOD SPECIMENOrdering Facility: [facility] Address: [address] [place] [address] Performed By: #### 2 4323-8, 2157-6 ####[facility] LABORATORYCLIA [id number] [place] [id number] [place] CNPNon 02-19-2024 CNPN Normal [facility] CONSULTon 02-19-2024 CONSULT Normal [facility] CONSULT PROGon 02-19-2024 CONSULT PROG Normal [facility] CONSULT PROG Normal [facility] CONSULT PROG Normal [facility] Comprehensive metabolic 2000 panelon 02-19-2024 Albumin [Mass/Vol] 2.7 g/dL Low 3.2-5.0 [facility] Comment on above: Order Comment: Speci men Type: BLOOD SPECIMENOrdering Facility: [facility] Address: [address] [place] [address] Performed By: #### 2 4323-8, 2156-09 ####[facility] LABORATORYCLIA [id number] [place] [address] [place] ALP [Catalytic activity/Vol] 139 U/L High 45-117 [facility] Comment on above: Order Comment: Speci men Type: BLOOD SPECIMENOrdering Facility: [facility] Address: [address] [place] [address] Performed By: #### 2 4323-8, 2156-09 ####[facility] LABORATORYCLIA [id number] [place] [address] [place] ALT [Catalytic activity/Vol] 8 U/L Low 13-61 [facility] Comment on above: Order Comment: Speci men Type: BLOOD SPECIMENOrdering Facility: [facility] Address: [address] [place] [address] Result Comment: Resu lts may be falsely depressed after the administration of Sulfasalazine and/or Sulfapyridine. Performed By: #### 2 4323-8, 2156-09 ####[facility] LABORATORYCLIA [id number] [place] [address] [place] Anion gap [Moles/Vol] 5 mmol/L Normal 5-16 [facility] Comment on above: Order Comment: Speci men Type: BLOOD SPECIMENOrdering Facility: [facility] Address: [address] [place] [address] Performed By: #### 2 4323-8, 2156-09 ####[facility] LABORATORYCLIA [id number] [place] [address] [place] AST [Catalytic activity/Vol] 14 U/L Normal 8-34 [facility] Comment on above: Order Comment: Speci men Type: BLOOD SPECIMENOrdering Facility: [facility] Address: [address] [place] [address] Result Comment: Resu lts may be falsely depressed after the administration of Sulfasalazine and/or Sulfapyridine. Performed By: #### 2 4323-8, 2156-09 ####[facility] LABORATORYCLIA [id number] [place] [address] [place] Bilirubin [Mass/Vol] 0.2 mg/dL Normal 0.2-1.0 [facility] Comment on above: Order Comment: Speci men Type: BLOOD SPECIMENOrdering Facility: [facility] Address: [address] [place] [address] Performed By: #### 2 4323-8, 2156-09 ####[facility] LABORATORYCLIA [id number] [place] [address] [place] Calcium [Mass/Vol] 9.2 mg/dL Normal 8.5-10.5 [facility] Comment on above: Order Comment: Speci men Type: BLOOD SPECIMENOrdering Facility: [facility] Address: [address] [place] [address] Performed By: #### 2 4323-8, 2156-09 ####[facility] LABORATORYCLIA [id number] [place] [id number] [place] Chloride [Moles/Vol] 109 mmol/L High 98-107 [facility] Comment on above: Order Comment: Speci men Type: BLOOD SPECIMENOrdering Facility: [facility] Address: [address] [place] [address] Performed By: #### 2 4323-8, 2156-09 ####[facility] LABORATORYCLIA [id number] [place] [address] [place] CO2 [Moles/Vol] 24 mmol/L Normal 21-32 [facility] Comment on above: Order Comment: Luis velez Type: BLOOD SPECIMENOrdering Facility: [facility] Address: [address] [place] [address] Performed By: #### 2 4323-8, 2156-09 ####[facility] LABORATORYCLIA [id number] [place] [address] [place] Creatinine [Mass/Vol] 0.61 mg/dL Normal 0.51-0.95 [facility] Comment on above: Order Comment: Luis men Type: BLOOD SPECIMENOrdering Facility: [facility] Address: [address] [place] [address] Result Comment: Ramila ents receiving either N-Acetylcysteine (NAC) or Metamizole prior to venipuncture, may have falsely depressed results. Performed By: #### 2 4323-8, 2156-09 ####[facility] LABORATORYCLIA [id number] [address] Creatinine and Glomerular filtration rate.predicted panel (S/P/Bld) 97 mL/min/1.73m??? Normal >=60 [facility] Comment on above: Order Comment: Marii rosie Type: BLOOD SPECIMENOrdering Facility: [facility] Address: [address] [place] [address] Result Comment: Julianne mated Glomerular Filtration Rate [...] GFR. Performed By: #### 2 4323-8, 2156-09 ####[facility] LAB[facility]ATORYCLIA [id number] [place] [id number] [place] Glucose [Mass/Vol] 178 mg/dL High 70-100 [facility] Comment on above: Order Comment: Speci men Type: BLOOD SPECIMENOrdering Facility: [facility] Address: [address] [place], [place] [id number] Result Comment: The [place] [employer] (ADA) provides guidance for cutoff [...] Standards of Medical Care in Diabetes 2016, [place] [employer]. Diabetes Care. 2016.39(Suppl 1).Results may be falsely elevated after the administration of Sulfapyridine.Results may be falsely depressed after the administration of Sulfasalazine. Performed By: #### 2 4323-8, 2156-09 ####[facility] LABORATORYCLIA [id number] [place] [address] [place] Potassium [Moles/Vol] 4.0 mmol/L Normal 3.5-5.1 [facility] Comment on above: Order Comment: Luis velez Type: BLOOD SPECIMENOrdering Facility: [facility] Address: [address] [place], [place] [id number] Performed By: #### 2 4323-8, 2156-09 ####[facility] LABORATORYCLIA [id number] [place] [address] [place] Protein [Mass/Vol] 5.7 g/dL Low 6.0-8.5 [facility] Comment on above: Order Comment: Luis velez Type: BLOOD SPECIMENOrdering Facility: [facility] Address: [address] [place], [place] [id number] Performed By: #### 2 4323-8, 2156-09 ####[facility] LABORATORYCLIA [id number] [place] [address] [place] Sodium [Moles/Vol] 138 mmol/L Normal 136-145 [facility] Comment on above: Order Comment: Speci men Type: BLOOD SPECIMENOrdering Facility: [facility] Address: [address] [place], [place] [id number] Performed By: #### 2 4323-8, 2156-09 ####[facility] LABORATORYCLIA [id number] [place] [id number] [place] Urea nitrogen [Mass/Vol] 16 mg/dL Normal 7- [facility] Comment on above: Order Comment: Speci men Type: BLOOD SPECIMENOrdering Facility: [facility] Address: [address] [place] [address] Performed By: #### 2 4323-8, 2156-09 ####[facility] LABORATORYCLIA [id number] [place] [id number] [place] OPERATIVE NOon 02-19-2024 OPERATIVE NO Normal [facility] STAPHYLOCOCCUS AUREUS AND MR SA SCREEN, PCR, NASALon 02-19-2024 S. aureus and MRSA panel VENANCIO+probe (Nose) Methicillin-RESISTANT Staphylococcus aureus (MRSA) Detected Abnormal Not Detected [facility] Comment on above: Order Comment: Speci men Type: SWABOrdering Facility: [facility] Address: [address] [place] [address] Performed By: #### S APCR ####[facility] LABORATORYCLIA [id number] [place] [address] [place] AST SerPl-cCncon 02-18-2024 AST [Catalytic activity/Vol] 17 U/L Normal 8-34 [facility] Comment on above: Order Comment: Speci men Type: BLOOD SPECIMENOrdering Facility: [facility] Address: [address] [place] [address] Result Comment: Resu lts may be falsely depressed after the administration of Sulfasalazine and/or Sulfapyridine. Performed By: #### 1 920-8, K1 ####[facility] LABORATORYCLIA [id number] [place] [address] [place] Bacteria Wnd Culton 02-18-20 24 Bacteria identified Cx Nom (Wound) Abnormal [facility] Comment on above: Performed By: #### 6 462-6 ####[facility] LABORATORYCLIA [id number] [address] [place] CBC panel Auto (Bld)on 02-17 Erythrocyte distribution width (RBC) [Ratio] 13.3 % Normal 11.5-15.0 [facility] Comment on above: Order Comment: Speci men Type: BLOOD SPECIMENOrdering Facility: [facility] Address: [address] [place] [address] Performed By: #### 5 8410-2 ####[facility] LABORATORYCLIA [id number] [address] [place] Hematocrit (Bld) [Volume fraction] 35.5 % Low 36.0-46.0 [facility] Comment on above: Order Comment: Speci men Type: BLOOD SPECIMENOrdering Facility: [facility] Address: [address] [place] [address] Performed By: #### 5 8410-2 ####[facility] LABORATORYCLIA [id number] [address] [place] Hemoglobin (Bld) [Mass/Vol] 11.4 g/dL Low 11.5-15.5 [facility] Comment on above: Order Comment: Speci men Type: BLOOD SPECIMENOrdering Facility: [facility] Address: [address] [place] [address] Performed By: #### 5 8410-2 ####[facility] LABORATORYCLIA [id number] [address] [place] MCH (RBC) [Entitic mass] 31.0 pg Normal 26.0-34.0 [facility] Comment on above: Order Comment: Speci men Type: BLOOD SPECIMENOrdering Facility: [facility] Address: [address] [place] [address] Performed By: #### 5 8410-2 ####[facility] LABORATORYCLIA [id number] [address] [place] MCHC (RBC) [Mass/Vol] 32.1 g/dL Normal 30.5-36.0 [facility] Comment on above: Order Comment: Speci men Type: BLOOD SPECIMENOrdering Facility: [facility] Address: [address] [place] [address] Performed By: #### 5 8410-2 ####[facility] LABORATORYCLIA [id number] [place] [address] [place] MCV (RBC) [Entitic vol] 96.5 fL Normal 80.0-100.0 [facility] Comment on above: Order Comment: Speci men Type: BLOOD SPECIMENOrdering Facility: [facility] Address: [address] [place] [address] Performed By: #### 5 8410-2 ####[facility] LABORATORYCLIA [id number] [address] [place] Nucleated RBC (Bld) [#/Vol] 10*3/uL Normal <0.01 [facility] Comment on above: Order Comment: Speci men Type: BLOOD SPECIMENOrdering Facility: [facility] Address: [address] [place] [address] Performed By: #### 5 8410-2 ####[facility] LABORATORYCLIA [id number] [place] [address] [place] Platelet mean volume (Bld) [Entitic vol] 9.9 fL Normal 9.0-12.7 [facility] Comment on above: Order Comment: Speci men Type: BLOOD SPECIMENOrdering Facility: [facility] Address: [address] [place] [address] Performed By: #### 5 8410-2 ####[facility] LABORATORYCLIA [id number] [place] [address] [place] Platelets (Bld) [#/Vol] 264 10*3/uL Normal 150-400 [facility] Comment on above: Order Comment: Speci men Type: BLOOD SPECIMENOrdering Facility: [facility] Address: [address] [place] [address] Performed By: #### 5 8410-2 ####[facility] LABORATORYCLIA [id number] [place] [id number] [facility] [place] RBC (Bld) [#/Vol] 3.68 10*6/uL Low 3.90-5.20 [facility] Comment on above: Order Comment: Speci men Type: BLOOD SPECIMENOrdering Facility: [facility] Address: [address] [place] [address] Performed By: #### 5 8410-2 ####[facility] LABORATORYCLIA [id number] [place] [id number] [facility] WBC (Bld) [#/Vol] 6.70 10*3/uL Normal 3.70-11.00 [facility] Comment on above: Order Comment: Speci men Type: BLOOD SPECIMENOrdering Facility: [facility] Address: [address] [place] [address] Performed By: #### 5 8410-2 ####[facility] LABORATORYCLIA [id number] [place] [id number] [facility] [place] CNOVon 02-18-2024 CNOV Normal [facility] CONSULT PROGon 02-18-2024 CONSULT PROG Normal [facility] CT LUMBAR SPINE WO IVCONon 1 CT LUMBAR SPINE WO IVCON Normal [facility] Comprehensive metabolic 2000 panelon 02-18-2024 Albumin [Mass/Vol] 2.9 g/dL Low 3.2-5.0 [facility] Comment on above: Order Comment: Speci men Type: BLOOD SPECIMENOrdering Facility: [facility] Address: [address] [place] [address] Performed By: #### 2 4323-8 ####[facility] LABORATORYCLIA [id number] [address] [place] ALP [Catalytic activity/Vol] 140 U/L High 45-117 [facility] Comment on above: Order Comment: Speci men Type: BLOOD SPECIMENOrdering Facility: [facility] Address: [address] [place] [address] Performed By: #### 2 4323-8 ####[facility] LABORATORYCLIA [id number] [place] [address] [place] ALT [Catalytic activity/Vol] 12 U/L Low 13-61 [facility] Comment on above: Order Comment: Speci men Type: BLOOD SPECIMENOrdering Facility: [facility] Address: [address] [place] [address] Result Comment: Resu lts may be falsely depressed after the administration of Sulfasalazine and/or Sulfapyridine. Performed By: #### 2 4323-8 ####[facility] LABORATORYCLIA [id number] [place] [address] [place] Anion gap [Moles/Vol] 5 mmol/L Normal 5-16 [facility] Comment on above: Order Comment: Speci men Type: BLOOD SPECIMENOrdering Facility: [facility] Address: [address] [place] [address] Performed By: #### 2 4323-8 ####[facility] LABORATORYCLIA [id number] [address] [place] [facility] AST [Catalytic activity/Vol] Normal [facility] Comment on above: Order Comment: Speci men Type: BLOOD SPECIMENOrdering Facility: [facility] Address: [address] [place] [address] Result Comment: Unab le to assay due to interference from hemolysis. Suggest reorder as clinically indicated.Results may be falsely depressed after the administration of Sulfasalazine and/or Sulfapyridine. Performed By: #### 2 4323-8 ####[facility] LABORATORYCLIA [id number] [place] [address] [place] Bilirubin [Mass/Vol] 0.2 mg/dL Normal 0.2-1.0 [facility] Comment on above: Order Comment: Speci men Type: BLOOD SPECIMENOrdering Facility: [facility] Address: [address] [place] [address] Performed By: #### 2 4323-8 ####[facility] LABORATORYCLIA [id number] [place] [address] [place] Calcium [Mass/Vol] 9.2 mg/dL Normal 8.5-10.5 [facility] Comment on above: Order Comment: Speci men Type: BLOOD SPECIMENOrdering Facility: [facility] Address: [address] [place] [address] Performed By: #### 2 4323-8 ####[facility] LABORATORYCLIA [id number] [place] [address] [place] Chloride [Moles/Vol] 107 mmol/L Normal 98-107 [facility] Comment on above: Order Comment: Speci men Type: BLOOD SPECIMENOrdering Facility: [facility] Address: [address] [place] [address] Performed By: #### 2 4323-8 ####[facility] LABORATORYCLIA [id number] [place] [address] [place] CO2 [Moles/Vol] 26 mmol/L Normal 21-32 [facility] Comment on above: Order Comment: Speci men Type: BLOOD SPECIMENOrdering Facility: [facility] Address: [address] [place] [address] Performed By: #### 2 4323-8 ####[facility] LABORATORYCLIA [id number] [place] [address] [place] Creatinine [Mass/Vol] 0.57 mg/dL Normal 0.51-0.95 [facility] Comment on above: Order Comment: Speci men Type: BLOOD SPECIMENOrdering Facility: [facility] Address: [address] [place] [address] Result Comment: Ramila ents receiving either N-Acetylcysteine (NAC) or Metamizole prior to venipuncture, may have falsely depressed results. Performed By: #### 2 4323-8 ####[facility] LABORATORYCLIA [id number] [place] [address] [place] Creatinine and Glomerular filtration rate.predicted panel (S/P/Bld) 99 mL/min/1.73m??? Normal >=60 [facility] Comment on above: Order Comment: Speci men Type: BLOOD SPECIMENOrdering Facility: [facility] Address: [address] [place] [id number] Result Comment: Julianne mated Glomerular Filtration Rate [...] actual GFR. Performed By: #### 2 4323-8 ####[facility] LABORATORYCLIA [id number] [place] [address] [place] Glucose [Mass/Vol] 140 mg/dL High 70-100 [facility] Comment on above: Order Comment: Luis velez Type: BLOOD SPECIMENOrdering Facility: [facility] Address: [address] [place] [address] Result Comment: The [place] [employer] (ADA) provides guidance for cutoff [...] Standards of Medical Care in Diabetes 2016, [place] [employer]. Diabetes Care. 2016.39(Suppl 1).Results may be falsely elevated after the administration of Sulfapyridine.Results may be falsely depressed after the administration of Sulfasalazine. Performed By: #### 2 4323-8 ####[facility] LABORATORYCLIA [id number] [place] [id number] [place] Potassium [Moles/Vol] Normal [facility] Comment on above: Order Comment: Luis velez Type: BLOOD SPECIMENOrdering Facility: [facility] Address: [address] [place] [id number] Result Comment: Unab le to assay due to interference from hemolysis. Suggest reorder as clinically indicated. &XA&Notified Verito on 5B Performed By: #### 2 4323-8 ####[facility] LABORATORYCLIA [id number] [address] [place] Protein [Mass/Vol] 6.3 g/dL Normal 6.0-8.5 [facility] Comment on above: Order Comment: Speci men Type: BLOOD SPECIMENOrdering Facility: [facility] Address: [address] [place] [address] Performed By: #### 2 4323-8 ####[facility] LABORATORYCLIA [id number] [address] [place] Sodium [Moles/Vol] 138 mmol/L Normal 136-145 [facility] Comment on above: Order Comment: Speci men Type: BLOOD SPECIMENOrdering Facility: [facility] Address: [address] [place] [address] Performed By: #### 2 4323-8 ####[facility] LABORATORYCLIA [id number] [address] [place] Urea nitrogen [Mass/Vol] 15 mg/dL Normal 7-26 [facility] Comment on above: Order Comment: Speci men Type: BLOOD SPECIMENOrdering Facility: [facility] Address: [address] [place] [address] Performed By: #### 2 4323-8 ####[facility] LABORATORYCLIA [id number] [place] [address] [place] HISTORY PHYSICALon HISTORY PHYSICAL Normal [facility] POTASSIUMon 02-18-2024 Potassium [Moles/Vol] 3.9 mmol/L Normal 3.5-5.1 [facility] Comment on above: Order Comment: Speci men Type: BLOOD SPECIMENOrdering Facility: [facility] Address: [address] [place] [address] Performed By: #### 1 920-8, K1 ####[facility] LABORATORYCLIA [id number] [address] [place] CNPNon 02-17-2024 CNPN Normal [facility] CNOVon 02-11-2024 CNOV Normal [facility] XR LUMBAR 2V AP/LATon 2023 XR LUMBAR 2V AP/LAT Normal [facility] CNPNon 02-09-2024 CNPN Normal [facility] CNPNon 02-05-2024 CNPN Normal [facility] CNPNon 02-02-2024 CNPN Normal [facility] CNPNon 01-27-2024 CNPN Normal [facility] CNPNon 01-25-2024 CNPN Normal [facility] CASE MANAGEMon 01-22-2024 CASE MANAGEM Normal [facility] CASE MANAGEM [facility] CBC panel Auto (Bld)on 01-21 Erythrocyte distribution width (RBC) [Ratio] 14.2 % Normal 11.5-15.0 [facility] Comment on above: Order Comment: Speci men Type: BLOOD SPECIMENOrdering Facility: [facility] Address: [address] [place] [address] Performed By: #### 5 8410-2 ####[facility] LABORATORYCLIA [id number] [address] [place] Hematocrit (Bld) [Volume fraction] 35.3 % Low 36.0-46.0 [facility] Comment on above: Order Comment: Speci men Type: BLOOD SPECIMENOrdering Facility: [facility] Address: [address] [place] [address] Performed By: #### 5 8410-2 ####[facility] LABORATORYCLIA [id number] [place] [address] [place] Hemoglobin (Bld) [Mass/Vol] 11.4 g/dL Low 11.5-15.5 [facility] Comment on above: Order Comment: Speci men Type: BLOOD SPECIMENOrdering Facility: [facility] Address: [address] [place] [address] Performed By: #### 5 8410-2 ####[facility] LABORATORYCLIA [id number] [address] MCH (RBC) [Entitic mass] 31.1 pg Normal 26.0-34.0 [facility] Comment on above: Order Comment: Speci men Type: BLOOD SPECIMENOrdering Facility: [facility] Address: [address] [place] [address] Performed By: #### 5 8410-2 ####[facility] LABORATORYCLIA [id number] [place] [address] [place] MCHC (RBC) [Mass/Vol] 32.3 g/dL Normal 30.5-36.0 [facility] Comment on above: Order Comment: Speci men Type: BLOOD SPECIMENOrdering Facility: [facility] Address: [address] [place] [address] Performed By: #### 5 8410-2 ####[facility] LABORATORYCLIA [id number] [address] [place] MCV (RBC) [Entitic vol] 96.2 fL Normal 80.0-100.0 [facility] Comment on above: Order Comment: Speci men Type: BLOOD SPECIMENOrdering Facility: [facility] Address: [address] [place] [address] Performed By: #### 5 8410-2 ####[facility] LABORATORYCLIA [id number] [address] [place] Nucleated RBC (Bld) [#/Vol] 10*3/uL Normal <0.01 [facility] Comment on above: Order Comment: Speci men Type: BLOOD SPECIMENOrdering Facility: [facility] Address: [address] [place] [address] Performed By: #### 5 8410-2 ####[facility] LABORATORYCLIA [id number] [address] [place] Platelet mean volume (Bld) [Entitic vol] 10.3 fL Normal 9.0-12.7 [facility] Comment on above: Order Comment: Speci men Type: BLOOD SPECIMENOrdering Facility: [facility] Address: [address] [place] [address] Performed By: #### 5 8410-2 ####[facility] LABORATORYCLIA [id number] [place] [id number] [facility] Platelets (Bld) [#/Vol] 159 10*3/uL Normal 150-400 [facility] Comment on above: Order Comment: Speci men Type: BLOOD SPECIMENOrdering Facility: [facility] Address: [address] [place] [address] Performed By: #### 5 8410-2 ####[facility] LABORATORYCLIA [id number] [address] [place] RBC (Bld) [#/Vol] 3.67 10*6/uL Low 3.90-5.20 [facility] Comment on above: Order Comment: Speci men Type: BLOOD SPECIMENOrdering Facility: [facility] Address: [address] [place] [address] Performed By: #### 5 8410-2 ####[facility] LABORATORYCLIA [id number] [address] WBC (Bld) [#/Vol] 10.43 10*3/uL Normal 3.70-11.00 [facility] Comment on above: Order Comment: Speci men Type: BLOOD SPECIMENOrdering Facility: [facility] Address: [address] [place] [address] Performed By: #### 5 8410-2 ####[facility] LABORATORYCLIA [id number] [address] [place] CNDSon 01-22-2024 CNDS Normal [facility] Comprehensive metabolic 2000 panelon 01-22-2024 Albumin [Mass/Vol] 2.8 g/dL Low 3.2-5.0 [facility] Comment on above: Order Comment: Speci men Type: BLOOD SPECIMENOrdering Facility: [facility] Address: [address] [place] [address] Performed By: #### 2 4323-8, 76835-0, HSTROP ####[facility] LABORATORYCLIA [id number] [place] [address] [place] ALP [Catalytic activity/Vol] 91 U/L Normal 45-117 [facility] Comment on above: Order Comment: Speci men Type: BLOOD SPECIMENOrdering Facility: [facility] Address: [address] [place] [address] Performed By: #### 2 4323-8, 95800-3, HSTROP ####[facility] LABORATORYCLIA [id number] [place] [address] [place] ALT [Catalytic activity/Vol] 8 U/L Low 13-61 [facility] Comment on above: Order Comment: Speci men Type: BLOOD SPECIMENOrdering Facility: [facility] Address: [address] [place] [address] Result Comment: Resu lts may be falsely depressed after the administration of Sulfasalazine and/or Sulfapyridine. Performed By: #### 2 4323-8, 46018-0, HSTROP ####[facility] LABORATORYCLIA [id number] [address] [place] [facility] Anion gap [Moles/Vol] 7 mmol/L Normal 5-16 [facility] Comment on above: Order Comment: Speci men Type: BLOOD SPECIMENOrdering Facility: [facility] Address: [address] [place] [address] Performed By: #### 2 4323-8, 79297-7, HSTROP ####[facility] LABORATORYCLIA [id number] [place] [address] [place] AST [Catalytic activity/Vol] 15 U/L Normal 8-34 [facility] Comment on above: Order Comment: Speci men Type: BLOOD SPECIMENOrdering Facility: [facility] Address: [address] [place] [address] Result Comment: Resu lts may be falsely depressed after the administration of Sulfasalazine and/or Sulfapyridine. Performed By: #### 2 4323-8, 66046-9, HSTROP ####[facility] LABORATORYCLIA [id number] [place] [id number] [place] Bilirubin [Mass/Vol] 0.5 mg/dL Normal 0.2-1.0 [facility] Comment on above: Order Comment: Speci men Type: BLOOD SPECIMENOrdering Facility: [facility] Address: [address] [place] [address] Performed By: #### 2 4323-8, , HSTROP ####[facility] LABORATORYCLIA [id number] [place] [id number] [place] Calcium [Mass/Vol] 10.1 mg/dL Normal 8.5-10.5 [facility] Comment on above: Order Comment: Speci men Type: BLOOD SPECIMENOrdering Facility: [facility] Address: [address] [place] [address] Performed By: #### 2 4323-8, , HSTROP ####[facility] LABORATORYCLIA [id number] [place] [address] [place] Chloride [Moles/Vol] 101 mmol/L Normal 98-107 [facility] Comment on above: Order Comment: Speci men Type: BLOOD SPECIMENOrdering Facility: [facility] Address: [address] [place] [address] Performed By: #### 2 4323-8, , HSTROP ####[facility] LABORATORYCLIA [id number] [place] [address] [place] CO2 [Moles/Vol] 25 mmol/L Normal 21-32 [facility] Comment on above: Order Comment: Speci men Type: BLOOD SPECIMENOrdering Facility: [facility] Address: [address] [place] [address] Performed By: #### 2 4323-8, , HSTROP ####[facility] LABORATORYCLIA [id number] [place] [id number] [place] Creatinine [Mass/Vol] 0.97 mg/dL High 0.51-0.95 [facility] Comment on above: Order Comment: Speci men Type: BLOOD SPECIMENOrdering Facility: [facility] Address: [address] [place] [address] Result Comment: Ramila ents receiving either N-Acetylcysteine (NAC) or Metamizole prior to venipuncture, may have falsely depressed results. Performed By: #### 2 4323-8, , HSTROP ####[facility] LABORATORYCLIA [id number] [place] [id number] [place] Creatinine and Glomerular filtration rate.predicted panel (S/P/Bld) 63 mL/min/1.73m??? Normal >=60 [facility] Comment on above: Order Comment: Speci men Type: BLOOD SPECIMENOrdering Facility: [facility] Address: [address] [place] [address] Result Comment: Julianne mated Glomerular Filtration Rate [...] actual GFR. Performed By: #### 2 4323-8, , HSTROP ####[facility] LABORATORYCLIA [id number] [place] [id number] [place] Glucose [Mass/Vol] 300 mg/dL High 70-100 [facility] Comment on above: Order Comment: Marii men Type: BLOOD SPECIMENOrdering Facility: [facility] Address: [address] [place] [id number] Result Comment: The [place] Diabetes Association (ADA) provides guidance for cutoff [...] Standards of Medical Care in Diabetes 2016, [place] Diabetes Association. Diabetes Care. 2016.39(Suppl 1).Results may be falsely elevated after the administration of Sulfapyridine.Results may be falsely depressed after the administration of Sulfasalazine. Performed By: #### 2 4323-8, , HSTROP ####[facility] LABORATORYCLIA [id number] [place] [id number] [place] Potassium [Moles/Vol] 4.5 mmol/L Normal 3.5-5.1 [facility] Comment on above: Order Comment: Speci men Type: BLOOD SPECIMENOrdering Facility: [facility] Address: [address] [place] [phone] Performed By: #### 2 4323-8, , HSTROP ####[facility] LABORATORYCLIA [id number] [place] [id number] [place] Protein [Mass/Vol] 5.6 g/dL Low 6.0-8.5 [facility] Comment on above: Order Comment: Speci men Type: BLOOD SPECIMENOrdering Facility: [facility] Address: [address] [place] [address] Performed By: #### 2 4323-8, , HSTROP ####[facility] LABORATORYCLIA [id number] [place] [id number] [place] Sodium [Moles/Vol] 133 mmol/L Low 136-145 [facility] Comment on above: Order Comment: Speci men Type: BLOOD SPECIMENOrdering Facility: [facility] Address: [address] [place] [address] Performed By: #### 2 4323-8, , HSTROP ####[facility] LABORATORYCLIA [id number] [place] [id number] [place] Urea nitrogen [Mass/Vol] 35 mg/dL High 7-26 [facility] Comment on above: Order Comment: Speci men Type: BLOOD SPECIMENOrdering Facility: [facility] Address: [address] [place] [address] Performed By: #### 2 4323-8, 32971-0, HSTROP ####[facility] LABORATORYCLIA [id number] [place] [id number] [place] HIGH SENSITIVITY TROPONIN Io n 01-22-2024 Tropinin I.cardiac panel High sensitivity method 6.2 pg/mL Normal 0.0-34.0 [facility] Comment on above: Order Comment: Speci men Type: BLOOD SPECIMENOrdering Facility: [facility] Address: [address] [place], [place] [address] [address] Performed By: #### 2 4323-8, , HSTROP ####[facility] LABORATORYCLIA [id number] [place] [id number] [place] Magnesium SerPl-mCncon 01-21 Magnesium [Mass/Vol] 1.7 mg/dL Normal 1.6-2.6 [facility] Comment on above: Order Comment: Speci men Type: BLOOD SPECIMENOrdering Facility: [facility] Address: [address] [place], [place] [address] [address] Performed By: #### 2 4323-8, , HSTROP ####[facility] LABORATORYCLIA [id number] [place] [id number] [place] THERAPY NTon 01-22-2024 THERAPY NT [facility] THERAPY NT Normal [facility] ALLIED HEALTHon 01-21-2024 ALLIED HEALTH Normal [facility] ALLIED HEALTH Normal [facility] CASE MGT INIT ASSESon 2023 CASE MGT INIT [facility] HIGH SENSITIVITY TROPONIN Io n 01-21-2024 Tropinin I.cardiac panel High sensitivity method 5.7 pg/mL Normal 0.0-34.0 [facility] Comment on above: Order Comment: Speci men Type: BLOOD SPECIMENOrdering Facility: [facility] Address: [address] [place] [address] Performed By: #### H STROP ####[facility] LABORATORYCLIA [id number] [place] [address] [place] THERAPY NTon 01-21-2024 THERAPY NT Normal [facility] THERAPY NT Normal [facility] XR LUMBAR 2V AP/LATon 2023 XR LUMBAR 2V AP/LAT Normal [facility] XR THORACIC 2V AP/LATon 12-27 XR THORACIC 2V AP/LAT Normal [facility] ANES POSTPROC EVALon 024 ANES POSTPROC EVAL Normal [facility] ANES PRE-OPon 01-20-2024 ANES PRE-OP Normal [facility] BRIEF OP NOTon 01-20-2024 BRIEF OP NOT Normal [facility] CONSULTon 01-20-2024 CONSULT Normal [facility] CREATININE BLDon 01-20-2024 Creatinine [Mass/Vol] 0.68 mg/dL Normal 0.51-0.95 [facility] Comment on above: Order Comment: Speci men Type: BLOOD SPECIMENOrdering Facility: [facility] Address: [address] [place] [address] Result Comment: Ramila ents receiving either N-Acetylcysteine (NAC) or Metamizole prior to venipuncture, may have falsely depressed results. Performed By: #### C RET1 ####[facility] LABORATORYCLIA [id number] [address] Creatinine and Glomerular filtration rate.predicted panel (S/P/Bld) 94 mL/min/1.73m??? Normal >=60 [facility] Comment on above: Order Comment: Speci men Type: BLOOD SPECIMENOrdering Facility: [facility] Address: [address] [place] [address] Result Comment: Julianne mated Glomerular Filtration Rate [...] actual GFR. Performed By: #### C RET1 ####[facility] LABORATORYCLIA [id number] [facility] [place] [address] [place] ECG COMPLETEon 01-20-2024 ECG COMPLETE Normal [facility] HISTORY PHYSICALon HISTORY PHYSICAL Normal [facility] OPERATIVE NOon 01-20-2024 OPERATIVE NO Normal [facility] XR VERIFY LEVEL [id number] 01-20-2024 XR VERIFY LEVEL L-SPINE-NB [facility] CNPNon 01-07-2024 CNPN Normal [facility] Basic metabolic 2000 panelon 01-05-2024 Anion gap [Moles/Vol] 4 mmol/L Low 5 - 16 mmol/L [facility] Calcium [Mass/Vol] 10.4 mg/dL 8.5 - 10. 5 mg/dL [facility] Chloride [Moles/Vol] 107 mmol/L 98 - 10 7 mmol/L [facility] CO2 [Moles/Vol] 27 mmol/L 21 - 32 mmol/L [facility] Creatinine [Mass/Vol] 0.72 mg/dL 0.51 - 0.95 mg/dL [facility] Comment on above: Patients receiving e ither N-Acetylcysteine (NAC) or Metamizole prior to venipuncture, may have falsely depressed results. GFR/1.73 sq M.predicted among non-blacks MDRD (S/P/Bld) [Vol rate/Area] 91 mL/min/{1.73_m2} - PINF [facility] Comment on above: Estimated Glomerular Filtration [...] 197 mg/dL High 70 - 100 mg/dL [facility] Comment on above: The [place] Diabete s Association (ADA) provides guidance for [...] Standards of Medical Care in Diabetes 2016, [place] Diabetes [employer]. Diabetes Care. 2016.39(Suppl 1). Results may be falsely elevated after the administration of Sulfapyridine. Results may be falsely depressed after the administration of Sulfasalazine. Interpretation and review of laboratory results Abnormal [facility] Potassium [Moles/Vol] 3.8 mmol/L 3.5 - 5.1 mmol/L [facility] Sodium [Moles/Vol] 138 mmol/L 136 - 145 mmol/L [facility] Urea nitrogen [Mass/Vol] 21 mg/dL 7 - 26 mg/dL [facility] Anion gap [Moles/Vol] 4 mmol/L Low 5-16 [facility] Comment on above: Order Comment: Luis velez Type: BLOOD SPECIMENOrdering Facility: [facility] Address: [address] [place] [address] Performed By: #### 2 4321-2, 2276-4, 10409-0 ####[facility] LABORATORYCLIA [id number] [place] [address] [place] Calcium [Mass/Vol] 10.4 mg/dL Normal 8.5-10.5 [facility] Comment on above: Order Comment: Luis velez Type: BLOOD SPECIMENOrdering Facility: [facility] Address: [address] [place] [address] Performed By: #### 2 4321-2, 2276-4, 97136-0 ####[facility] LABORATORYCLIA [id number] [place] [address] [place] Chloride [Moles/Vol] 107 mmol/L Normal 98-107 [facility] Comment on above: Order Comment: Luis velez Type: BLOOD SPECIMENOrdering Facility: [facility] Address: [address] [place] [address] Performed By: #### 2 4321-2, 2276-4, 61863-9 ####[facility] LABORATORYCLIA [id number] [place] [address] [place] CO2 [Moles/Vol] 27 mmol/L Normal 21-32 [facility] Comment on above: Order Comment: Speci men Type: BLOOD SPECIMENOrdering Facility: [facility] Address: [address] [place] [address] Performed By: #### 2 4321-2, 2276-4, 32674-6 ####[facility] LABORATORYCLIA [id number] [place] [id number] [place] Creatinine [Mass/Vol] 0.72 mg/dL Normal 0.51-0.95 [facility] Comment on above: Order Comment: Speci men Type: BLOOD SPECIMENOrdering Facility: [facility] Address: [address] [place] [address] Result Comment: Ramila ents receiving either N-Acetylcysteine (NAC) or Metamizole prior to venipuncture, may have falsely depressed results. Performed By: #### 2 4321-2, 2276-4, 78976-6 ####[facility] LAB[facility]ATORYCLIA [id number] [place] [address] [place] Creatinine and Glomerular filtration rate.predicted panel (S/P/Bld) 91 mL/min/1.73m??? Normal >=60 [facility] Comment on above: Order Comment: Speci men Type: BLOOD SPECIMENOrdering Facility: [facility] Address: [address] [place] [address] Result Comment: Julianne mated Glomerular Filtration Rate [...] GFR. Performed By: #### 2 4321-2, 2276-4, 37586-1 ####[facility] LAB[facility]ATORYCLIA [id number] [place] [id number] [place] Glucose [Mass/Vol] 197 mg/dL High 70-100 [facility] Comment on above: Order Comment: Luis velez Type: BLOOD SPECIMENOrdering Facility: [facility] Address: [address] [place] [phone] Result Comment: The [place] Diabetes Association (ADA) provides guidance for cutoff [...] Standards of Medical Care in Diabetes 2016, [place] Diabetes Association. Diabetes Care. 2016.39(Suppl 1).Results may be falsely elevated after the administration of Sulfapyridine.Results may be falsely depressed after the administration of Sulfasalazine. Performed By: #### 2 4321-2, 2276-4, 49520-3 ####[facility] LABORATORYCLIA [id number] [place] [address] [place] Potassium [Moles/Vol] 3.8 mmol/L Normal 3.5-5.1 [facility] Comment on above: Order Comment: Luis velez Type: BLOOD SPECIMENOrdering Facility: [facility] Address: [address] [place] [address] Performed By: #### 2 4321-2, 2276-4, 75068-3 ####[facility] LABORATORYCLIA [id number] [place] [address] [place] Sodium [Moles/Vol] 138 mmol/L Normal 136-145 [facility] Comment on above: Order Comment: Luis velez Type: BLOOD SPECIMENOrdering Facility: [facility] Address: [address] [place] [address] Performed By: #### 2 4321-2, 2276-4, 33265-3 ####[facility] LABORATORYCLIA [id number] [place] [address] [place] Urea nitrogen [Mass/Vol] 21 mg/dL Normal 7-26 [facility] Comment on above: Order Comment: Speci men Type: BLOOD SPECIMENOrdering Facility: [facility] Address: [address] [place] [address] Performed By: #### 2 4321-2, 2276-4, 88189-7 ####[facility] LABORATORYCLIA [id number] [place] [id number] [place] CBC panel Auto (Bld)on 01-04 Erythrocyte distribution width (RBC) [Ratio] 14.0 % 11.5 - 15.0 % [facility] Hematocrit (Bld) [Volume fraction] 40.0 % 36.0 - 46.0 % [facility] Hemoglobin (Bld) [Mass/Vol] 12.9 g/dL 11.5 - 15.5 g/dL [facility] Interpretation and review of laboratory results Normal [facility] MCH (RBC) [Entitic mass] 31.3 pg 26.0 - 34.0 pg [facility] MCHC (RBC) [Mass/Vol] 32.3 g/dL 30.5 - 36.0 g/dL [facility] MCV (RBC) [Entitic vol] 97.1 fL 80.0 - 100.0 fL [facility] Nucleated RBC (Bld) [#/Vol] NINF [facility] Platelet mean volume (Bld) [Entitic vol] 9.8 fL 9.0 - 12.7 fL [facility] Platelets (Bld) [#/Vol] 171 10*3/uL [facility] RBC (Bld) [#/Vol] 4.12 10*6/uL 3.90 - 5.2 0 m/uL [facility] WBC (Bld) [#/Vol] 7.69 10*3/uL [facility] Erythrocyte distribution width (RBC) [Ratio] 14.0 % Normal 11.5-15.0 [facility] Comment on above: Order Comment: Speci men Type: BLOOD SPECIMENOrdering Facility: [facility] Address: [address] [place] [address] Performed By: #### 5 8410-2 ####[facility] LABORATORYCLIA [id number] [address] [place] Hematocrit (Bld) [Volume fraction] 40.0 % Normal 36.0-46.0 [facility] Comment on above: Order Comment: Speci men Type: BLOOD SPECIMENOrdering Facility: [facility] Address: [address] [place] [address] Performed By: #### 5 8410-2 ####[facility] LABORATORYCLIA [id number] [place] [address] [place] Hemoglobin (Bld) [Mass/Vol] 12.9 g/dL Normal 11.5-15.5 [facility] Comment on above: Order Comment: Speci men Type: BLOOD SPECIMENOrdering Facility: [facility] Address: [address] [place] [address] Performed By: #### 5 8410-2 ####[facility] LABORATORYCLIA [id number] [address] [place] MCH (RBC) [Entitic mass] 31.3 pg Normal 26.0-34.0 [facility] Comment on above: Order Comment: Speci men Type: BLOOD SPECIMENOrdering Facility: [facility] Address: [address] [place] [address] Performed By: #### 5 8410-2 ####[facility] LABORATORYCLIA [id number] [place] [address] [place] MCHC (RBC) [Mass/Vol] 32.3 g/dL Normal 30.5-36.0 [facility] Comment on above: Order Comment: Speci men Type: BLOOD SPECIMENOrdering Facility: [facility] Address: [address] [place], [place] [address] Performed By: #### 5 8410-2 ####[facility] LABORATORYCLIA [id number] [address] [place] MCV (RBC) [Entitic vol] 97.1 fL Normal 80.0-100.0 [facility] Comment on above: Order Comment: Speci men Type: BLOOD SPECIMENOrdering Facility: [facility] Address: [address] [place] [address] Performed By: #### 5 8410-2 ####[facility] LABORATORYCLIA [id number] [place] [id number] [place] Nucleated RBC (Bld) [#/Vol] 10*3/uL Normal <0.01 [facility] Comment on above: Order Comment: Speci men Type: BLOOD SPECIMENOrdering Facility: [facility] Address: [address] [place] [address] Performed By: #### 5 8410-2 ####[facility] LABORATORYCLIA [id number] [place] [id number] [place] Platelet mean volume (Bld) [Entitic vol] 9.8 fL Normal 9.0-12.7 [facility] Comment on above: Order Comment: Speci men Type: BLOOD SPECIMENOrdering Facility: [facility] Address: [address] [place] [address] Performed By: #### 5 8410-2 ####[facility] LABORATORYCLIA [id number] [place] [address] [place] Platelets (Bld) [#/Vol] 171 10*3/uL Normal 150-400 [facility] Comment on above: Order Comment: Speci men Type: BLOOD SPECIMENOrdering Facility: [facility] Address: [address] [place] [address] Performed By: #### 5 8410-2 ####[facility] LABORATORYCLIA [id number] [place] [id number] [place] RBC (Bld) [#/Vol] 4.12 10*6/uL Normal 3.90-5.20 [facility] Comment on above: Order Comment: Speci men Type: BLOOD SPECIMENOrdering Facility: [facility] Address: [address] [place] [address] Performed By: #### 5 8410-2 ####[facility] LABORATORYCLIA [id number] [place] [id number] [place] WBC (Bld) [#/Vol] 7.69 10*3/uL Normal 3.70-11.00 [facility] Comment on above: Order Comment: Luis velez Type: BLOOD SPECIMENOrdering Facility: [facility] Address: [address] [place] [address] Performed By: #### 5 8410-2 ####[facility] LABORATORYCLIA [id number] [place] [id number] [place] CNPNon 01-05-2024 CNPN Normal [facility] FERRITINon 01-05-2024 Ferritin [Mass/Vol] 46.3 ng/mL 8.0 - 30 7.0 ng/mL [facility] Ferritin SerPl-mCncon 2023 Ferritin [Mass/Vol] 46.3 ng/mL Normal 8.0-307.0 [facility] Comment on above: Order Comment: Speci rosie Type: BLOOD SPECIMENOrdering Facility: [facility] Address: [address] [place] [address] Performed By: #### 2 4321-2, 2276-4, 71317-9 ####[facility] LABORATORYCLIA [id number] [place] [address] [place] Ferritin [Mass/Vol]on 2023 Interpretation and review of laboratory results Normal [facility] HbA1c (Bld)on 01-05-2024 Average glucose Estimated from glycated hemoglobin (Bld) [Mass/Vol] 148 mg/dL Normal [facility] Comment on above: Order Comment: Luis velez Type: BLOOD SPECIMENOrdering Facility: [facility] Address: [address] [place] [address] Result Comment: eAG: (Estimated average glucose) is a calculated value from HgbA1c and is client services representative of the average blood glucose level in the last 2-3 month period. Performed By: #### 5 5454-3 ####[facility] LABCLIA [id number] [facility] [id number] [place] [address] [place] HbA1c (Bld) [Mass fraction] 6.8 % High 4.3-5.6 [facility] Comment on above: Order Comment: Luis velez Type: BLOOD SPECIMENOrdering Facility: [facility] Address: [address] [place] [id number] Result Comment: [place] Diabetes Association guidelines indicate that patients with HgbA1c in the range 5.7-6.4% are at increased risk for development of diabetes, and intervention by lifestyle modification may be beneficial. HgbA1c greater or equal to 6.5% is considered diagnostic of diabetes. Performed By: #### 5 5454-3 ####[facility] LABCLIA [id number] [facility] [id number] [place] [id number] [place] [employer] binding capaci ty panelon 01-05-2024 Interpretation and review of laboratory results Abnormal [facility] Iron [Mass/Vol] 68 ug/dL 50 - 170 ug/dL [facility] Comment on above: Patients treated wit h metal-binding drugs (e.g.deferoxamine) may have depressed iron values, as chelated iron may not properly react in the Siemens iron assay. Iron binding capacity [Mass/Vol] 347 ug/dL 221 - 481 ug/dL [facility] Iron/TIBC [Molar ratio] 19.6 % Low 22.0 - 44.0 % [facility] Iron [Mass/Vol] 68 ug/dL Normal 50-170 [facility] Comment on above: Order Comment: Luis velez Type: BLOOD SPECIMENOrdering Facility: [facility] Address: [address] [place] [address] Result Comment: Ramila ents treated with metal-binding drugs (e.g.deferoxamine) may have depressed iron values, as chelated iron may not properly react in the Siemens iron assay. Performed By: #### 2 4321-2, 2276-4, 47898-7 ####[facility] LABORATORYCLIA [id number] [place] [address] [place] Iron binding capacity [Mass/Vol] 347 ug/dL Normal 221-481 [facility] Comment on above: Order Comment: Luis [facility] Type: BLOOD SPECIMENOrdering Facility: [facility] Address: [address] [place] [address] Performed By: #### 2 4321-2, 2276-4, 55335-5 ####[facility] LABORATORYCLIA [id number] [place] [id number] [place] Iron/TIBC [Molar ratio] 19.6 % Low 22.0-44.0 [facility] Comment on above: Order Comment: Speci men Type: BLOOD SPECIMENOrdering Facility: [facility] Address: [address] [place] [address] Performed By: #### 2 4321-2, 2276-4, 84388-8 ####[facility] LABORATORYCLIA [id number] [place] [id number] [place] NT PRO BNPon 01-05-2024 Natriuretic peptide.B prohormone N-Terminal [Mass/Vol] 400 pg/mL High NINF - 125 pg/mL [facility] Comment on above: NT-proBNP results of [...] prohormone N-Terminal [Mass/Vol] 400 pg/mL High <125 [facility] Comment on above: Order Comment: Speci men Type: BLOOD SPECIMENOrdering Facility: [facility] Address: [address] [place] [address] Result Comment: NT-p roBNP results of less than 300 pg/mL likely rules out acute congestive heart failure with 99% predictive value.NOTE: These cutoff points are suggested for ACUTE CHF DIAGNOSIS onlyLess than 50 years\X09\ Greater than 450 pg/mL50 - 75 years\X09\\X09\ Greater than 900 pg/mLGreater than 75 years\X09\ Greater than 1800 pg/mL Performed By: #### 3 3762-6 ####[facility] LABORATORYCLIA [id number] [place] [id number] [place] Natriuretic peptide.B prohor kashmir N-Terminal [Mass/Vol]on 01-05-2024 Interpretation and review of laboratory results Abnormal [facility] No Panel Informationon 01-04 [facility] PT panel Coag (PPP)on 2023 INR Coag (PPP) [Relative time] 1.0 {INR} 0.9 - 1.3 [facility] Comment on above: Vitamin K Antagonist (VKA) Therapeutic Range: INR 2 to 3 (Target INR of 2.5) Note: For patients treated with VKA drugs, such as warfarin, the [place] [employer] 2012 Guideline recommends [...] to 3.5 (target INR of 3). Grant KC, et al. Chest 2012, 141:7S-47S Ashley RA, et al. [facility] 2017, 70: 252-289 Interpretation and review of laboratory results Normal [facility] PT Coag (PPP) [Time] 11.0 s [facility] INR Coag (PPP) [Relative time] 1.0 {INR} Normal 0.9-1.3 [facility] Comment on above: Order Comment: Speci men Type: BLOOD SPECIMENOrdering Facility: [facility] Address: [address] [place] [address] Result Comment: Debbie min K Antagonist (VKA) Therapeutic Range: INR 2 to 3 (Target INR of 2.5)Note: For patients treated with VKA drugs, such as warfarin, the [place] [employer] 2012 Guideline recommends [...] 2.5 to 3.5 (target INR of 3).Grant KC, et al. Chest 2012, 141:7S-47SAshley RA, et al. [facility] 2017, 70: 252-289 Performed By: #### 3 4528-0 ####[facility] LABORATORYCLIA [id number] [address] OF [facility] PT Coag (PPP) [Time] 11.0 s Normal 9.7-13.0 [facility] Comment on above: Order Comment: Speci men Type: BLOOD SPECIMENOrdering Facility: [facility] Address: [address] [place] [address] Performed By: #### 3 4528-0 ####[facility] LABORATORYCLIA [id number] [address] STAPHYLOCOCCUS AUREUS AND MR SA SCREEN, PCR, NASALon 01-05-2024 S. aureus and MRSA panel VENANCIO+probe (Nose) Methicillin-RESISTANT Staphylococcus aureus (MRSA) Detected Abnormal Not Detected [facility] Comment on above: Order Comment: Luis velez Type: SWABOrdering Facility: [facility] Address: [address] [place] [address] Performed By: #### S APCR ####[facility] LABORATORYCLIA [id number] [address] TYPE AND SCREEN,30 DAYon ABO group Nom (Bld) AB [facility] Blood group antibody screen Ql Negative [facility] HIstorical Ab Scr Status Negative [facility] Rh Nom (Bld) Positive [facility] ABO AB Normal [facility] Comment on above: Order Comment: Speci men Type: BLOOD SPECIMENOrdering Facility: [facility] Address: [address] [place] [address] Performed By: #### T SCR30 ####[facility] BLOOD BANKCLIA [id number] [address] [place] HISTORICAL AB SCR STATUS Negative Normal [facility] Comment on above: Order Comment: Speci men Type: BLOOD SPECIMENOrdering Facility: [facility] Address: [address] [place] [address] Performed By: #### T SCR30 ####[facility] BLOOD BANKCLIA [id number] [place] [address] [place] Rh Nom (Bld) Positive Normal [facility] Comment on above: Order Comment: Speci men Type: BLOOD SPECIMENOrdering Facility: [facility] Address: [address] [place] [address] Performed By: #### T SCR30 ####[facility] BLOOD BANKCLIA [id number] [address] [place] CNCOon 01-04-2024 CNCO Letter Text Normal [facility] CNPNon 12-30-2023 CNPN Normal [facility] CNCOon 12-29-2023 CNCO Letter Text Normal [facility] CNOVon 12-29-2023 CNOV Normal [facility] CNCOon 12-17-2023 CNCO Letter Text Normal [facility] CNOVon 12-17-2023 CNOV Normal [facility] CNOVon 12-08-2023 CNOV Normal [facility] CT LUMBAR SPINE WO IVCONon 0 12-04-2023 CT LUMBAR SPINE WO IVCON Normal [facility] CT THORACIC SPINE WO IVCONon 12-04-2023 CT THORACIC SPINE WO IVCON Normal [facility] CNCOon 12-02-2023 CNCO Letter Text Normal [facility] CNPNon 11-30-2023 CNPN Normal [facility] CNOVon 11-27-2023 CNOV Office Visit (SPSLUH ) ----- ELO GRAY ([id number]) 1955 F Date Time Provider Department 11/27/23 3:00 PM JARRED DUARTE During your visit today, we recorded the following information about you: Weight Height 72.6 kg 1.575 m Jarred Duarte MD 11/27/2023 4:05 PM Signed SPINE SURGERY NEW PATIENT This is an in-person visit. PCP: Melodie Marina, LARD MIXER REFERRING PROVIDER: Meka Webb MD SUBJECTIVE HISTORY [...] extremity symptoms. On Eliquis, prior hx of TN. Smokes half a pack a day of [...] Distances ANTIPLATELET OR ANTICOAGULATION STATUS: Yes Previous TN, eliquis and aspirin PREVIOUS CONSERVATIVE TREATMENTS: Dates of PT 04/18 to present PREVIOUS SPINAL SURGERY: L4-5 decompression, L5-S1 decompression, C4-6 lami fusion 2015 ACTIVE PROBLEM LIST Colitis Htn (Hypertension) Ms (Multiple Sclerosis) (Hcc) Ulcerative Colitis (Hcc) Diabetes Mellitus (Hcc) Paroxysmal A-Fib (Hcc) Tobacco Dependence Dyslipidemia Anxiety and Depression Cardiomyopathy ([facility]) Lv (Left Ventricular) Mural Thrombus Obesity, Class I, Bmi 30-34.9 Chronic Fatigue Kyphosis Myofascial Pain Syndrome PAST MEDICAL HISTORY No date: Anxiety and depression No date: Anxiety and depression No date: Atrial fibrillation ([facility]) No date: Cardiomyopathy ([facility]) No date: Cervical myelopathy ([facility]) No date: CHF (congestive heart failure) ([facility]) No date: Cognitive impairment No date: Colitis No date: COPD (chronic obstructive pulmonary disease) ([facility]) No date: Diabetes ([facility]) No date: Dyslipidemia No date: GI bleed No date: History of loop recorder No date: Hypertension No date: IBS (irritable bowel syndrome) No date: Multiple sclerosis ([facility]) 03/2016: Myocardial infarct, old No date: Obesity 1978: Pancreatitis No date: Renal insufficiency No date: RLS (restless legs syndrome) No date: Tobacco dependence No date: Urinary incontinence PAST SURGICAL HISTORY No date: BACK SURGERY HX Comment: lower x3 No date: CARPAL TUNNEL Comment: lt and rt 10/12/2014: COLONOSCOPY FLX DX W/COLLJ SPEC WHEN PFRMD Comment: Colonoscopy inpt [facility] 02/28/2015: COLONOSCOPY FLX DX W/COLLJ SPEC [...] tablet Take 1 (more content not included)... [facility] CNOVon 11-19-2023 CNOV Normal [facility] CRYOTHERAPY SKIN LESIONon Complexity: simple Destruction [...] complications Post-procedure details: wound care instructions given [facility] Cobalamin (Vitamin B12) [Mas s/Vol]on 11-10-2023 Interpretation and review of laboratory results Normal [facility] VITAMIN B12on 11-10-2023 Cobalamin (Vitamin B12) [Mass/Vol] 1047 pg/mL 232 - 1245 pg/mL [facility] CRYOTHERAPY SKIN LESIONon Complexity: simple Destruction [...] complications Post-procedure details: wound care instructions given [facility] CBC W Auto Differential pane l (Bld)on 09-24-2023 Basophils (Bld) [#/Vol] 0.08 10*3/uL [facility] Basophils/100 WBC (Bld) 0.9 % [facility] Differential cell count method Nom (Bld) Auto [facility] Eosinophils (Bld) [#/Vol] 0.18 10*3/uL [facility] Eosinophils/100 WBC (Bld) 2.0 % [facility] Erythrocyte distribution width (RBC) [Ratio] 14.5 % 11.5 - 15.0 % [facility] Hematocrit (Bld) [Volume fraction] 46.0 % 36.0 - 46.0 % [facility] Hemoglobin (Bld) [Mass/Vol] 15.2 g/dL 11.5 - 15.5 g/dL [facility] Immature granulocytes (Bld) [#/Vol] 0.04 10*3/uL [facility] Immature granulocytes/100 WBC (Bld) 0.5 % [facility] Lymphocytes (Bld) [#/Vol] 1.40 10*3/uL [facility] Lymphocytes/100 WBC (Bld) 15.9 % [facility] MCH (RBC) [Entitic mass] 31.7 pg 26.0 - 34.0 pg [facility] MCHC (RBC) [Mass/Vol] 33.0 g/dL 30.5 - 36.0 g/dL [facility] MCV (RBC) [Entitic vol] 95.8 fL 80.0 - 100.0 fL [facility] Monocytes (Bld) [#/Vol] 0.81 10*3/uL [facility] Monocytes/100 WBC (Bld) 9.2 % [facility] Neutrophils (Bld) [#/Vol] 6.28 10*3/uL [facility] Neutrophils/100 WBC (Bld) 71.5 % [facility] Nucleated RBC (Bld) [#/Vol] [facility] Nucleated RBC/100 WBC (Bld) [Ratio] 0.0 % /100 WBC [facility] Platelet mean volume (Bld) [Entitic vol] 10.1 fL 9.0 - 12.7 fL [facility] Platelets (Bld) [#/Vol] 241 10*3/uL [facility] RBC (Bld) [#/Vol] 4.80 10*6/uL 3.90 - 5.2 0 m/uL [facility] WBC (Bld) [#/Vol] 8.79 10*3/uL [facility] Cobalamin (Vitamin B12) [Mas s/Vol]on 09-24-2023 Interpretation and review of laboratory results Abnormal [facility] Comprehensive metabolic 2000 panelon 09-24-2023 Albumin [Mass/Vol] 4.2 g/dL 3.9 - 4.9 g/dL [facility] ALP [Catalytic activity/Vol] 92 U/L 34 - 123 U/L [facility] ALT [Catalytic activity/Vol] 12 U/L 7 - 38 U/L [facility] Anion gap [Moles/Vol] 12 mmol/L 9 - 18 mmol/L [facility] AST [Catalytic activity/Vol] 16 U/L 13 - 35 U/L [facility] Bilirubin [Mass/Vol] 0.4 mg/dL 0.2 - 1 .3 mg/dL [facility] Calcium [Mass/Vol] 10.5 mg/dL High 8.5 - 10. 2 mg/dL [facility] Chloride [Moles/Vol] 103 mmol/L 97 - 10 5 mmol/L [facility] CO2 [Moles/Vol] 21 mmol/L Low 22 - 30 mmol/L [facility] Creatinine [Mass/Vol] 0.61 mg/dL 0.58 - 0.96 mg/dL [facility] GFR/1.73 sq M.predicted among non-blacks MDRD (S/P/Bld) [Vol rate/Area] 98 mL/min/{1.73_m2} - PINF [facility] Comment on above: Estimated Glomerular Filtration [...] 170 mg/dL High 74 - 99 mg/dL [facility] Comment on above: The [place] Diabete s Association (ADA) provides guidance for [...] Standards of Medical Care in Diabetes 2016, [place] Diabetes Association. Diabetes Care. 2016.39(Suppl 1). Interpretation and review of laboratory results Abnormal [facility] Potassium [Moles/Vol] 4.7 mmol/L 3.7 - 5.1 mmol/L [facility] Protein [Mass/Vol] 6.3 g/dL 6.3 - 8.0 g/dL [facility] Sodium [Moles/Vol] 136 mmol/L 136 - 144 mmol/L [facility] Urea nitrogen [Mass/Vol] 20 mg/dL 7 - 21 mg/dL [facility] Laboratory - Chemistry and C hemistry - challengeon 09-24-2023 Cobalamin (Vitamin B12) [Mass/Vol] pg/mL High 232 - 1245 pg/mL [facility] MR Thoracic spine WO and W [...] and assume there are 5 lumbar-type vertebrae. Film Maker: [facility] Transcribe Date/Time: Sep 16 2023 12:04P Dictated by : ZACH CALDWELL MD This examination was interpreted and the report reviewed and electronically signed by: ZACH CALDWELL MD on Sep 16 2023 12:12PM [facility] DIVISION OF RADIOLOGY * * *Final Report* * * DATE OF EXAM: Sep 16 2023 11:00AM [facility] 0326 - MRI THORACIC SPINE WO/W [...] T8-T9 and T9-T10. DIVISION OF RADIOLOGY Provider, [facility] - 09/16/2023 * * *Final Report* * * DATE OF EXAM: Sep 16 2023 11:00AM [facility] 0326 - MRI THORACIC SPINE WO/W [...] and assume there are 5 lumbar-type vertebrae. Film Maker: [employer] Transcribe Date/Time: Sep 16 2023 12:04P Dictated by : ZACH CALDWELL MD This examination was interpreted and the report reviewed and electronically signed by: ZACH CALDWELL MD on Sep 16 2023 12:12PM EST [facility] Radiology Study observation (narrative) [facility] MR Thoracic spine WO and W c ontrast IVOrdered By: Ccf Provider on 09-16-2023 [facility] BRAIN & CERVICAL SPINE MRI D ISCRETE DATAon 07-27-2023 Brain Enhancing Lesions Not applicable [facility] Brain Interval Improvement None [facility] Brain New T2 Lesions None Site [facility] Brain Other Significant MRI Findings None. [facility] Brain Parenchymal Volume Loss Mild [facility] Brain T2 [place] of Disease Moderate [facility] No Panel Informationon 07-26 [facility] CBC W Auto Differential pane l (Bld)on 06-24-2023 Basophils (Bld) [#/Vol] 0.09 10*3/uL <0.11 k/uL [facility] Basophils/100 WBC (Bld) 1.2 % [facility] Differential cell count method Nom (Bld) Auto [facility] Eosinophils (Bld) [#/Vol] 0.18 10*3/uL <0.46 k/uL [facility] Eosinophils/100 WBC (Bld) 2.4 % [facility] Erythrocyte distribution width (RBC) [Ratio] 13.8 % 11.5 - 15.0 % [facility] Hematocrit (Bld) [Volume fraction] 47.2 % High 36.0 - 46.0 % [facility] Hemoglobin (Bld) [Mass/Vol] 15.0 g/dL 11.5 - 15.5 g/dL [facility] Immature granulocytes (Bld) [#/Vol] <0.10 k/uL [facility] Immature granulocytes/100 WBC (Bld) 0.3 % [facility] Lymphocytes (Bld) [#/Vol] 1.91 10*3/uL 1.00 - 4.00 k/uL [facility] Lymphocytes/100 WBC (Bld) 25.5 % [facility] MCH (RBC) [Entitic mass] 31.3 pg 26.0 - 34.0 pg [facility] MCHC (RBC) [Mass/Vol] 31.8 g/dL 30.5 - 36.0 g/dL [facility] MCV (RBC) [Entitic vol] 98.5 fL 80.0 - 100.0 fL [facility] Monocytes (Bld) [#/Vol] 0.86 10*3/uL <0.87 k/uL [facility] Monocytes/100 WBC (Bld) 11.5 % [facility] Neutrophils (Bld) [#/Vol] 4.44 10*3/uL 1.45 - 7.50 k/uL [facility] Neutrophils/100 WBC (Bld) 59.1 % [facility] Nucleated RBC (Bld) [#/Vol] <0.01 k/uL [facility] Nucleated RBC/100 WBC (Bld) [Ratio] 0.0 /100 WBC [facility] Platelet mean volume (Bld) [Entitic vol] 9.7 fL 9.0 - 12.7 fL [facility] Platelets (Bld) [#/Vol] 208 10*3/uL 150 - 400 k/uL [facility] RBC (Bld) [#/Vol] 4.79 10*6/uL 3.90 - 5.2 0 m/uL [facility] WBC (Bld) [#/Vol] 7.50 10*3/uL 3.70 - 11.00 k/uL [facility] Comprehensive metabolic 2000 panelon 06-24-2023 Albumin [Mass/Vol] 4.1 g/dL 3.9 - 4.9 g/dL [facility] ALP [Catalytic activity/Vol] 83 U/L 34 - 123 U/L [facility] ALT [Catalytic activity/Vol] 12 U/L 7 - 38 U/L [facility] Anion gap [Moles/Vol] 15 mmol/L 9 - 18 mmol/L [facility] AST [Catalytic activity/Vol] 16 U/L 13 - 35 U/L [facility] Bilirubin [Mass/Vol] 0.4 mg/dL 0.2 - 1 .3 mg/dL [facility] Calcium [Mass/Vol] 11.2 mg/dL High 8.5 - 10. 2 mg/dL [facility] Chloride [Moles/Vol] 107 mmol/L High 97 - 10 5 mmol/L [facility] CO2 [Moles/Vol] 21 mmol/L Low 22 - 30 mmol/L [facility] Creatinine [Mass/Vol] 0.86 mg/dL 0.58 - 0.96 mg/dL [facility] Estimated Glomerular Filtration Rate 74 mL/min/1.73m >=60 mL/min/1.73 m [facility] Glucose [Mass/Vol] 177 mg/dL High 74 - 99 mg/dL [facility] Potassium [Moles/Vol] 4.7 mmol/L 3.7 - 5.1 mmol/L [facility] Protein [Mass/Vol] 6.6 g/dL 6.3 - 8.0 g/dL [facility] Sodium [Moles/Vol] 143 mmol/L 136 - 144 mmol/L [facility] Urea nitrogen [Mass/Vol] 26 mg/dL High 7 - 21 mg/dL [facility] IGGon 06-24-2023 IgG [Mass/Vol] 723 mg/dL 700 - 1,600 mg/dL [facility] IGMon 06-24-2023 IgM [Mass/Vol] 32 mg/dL Low 40 - 230 mg/dL [facility] No Panel Informationon 01-15 Radiology Study observation (narrative) [facility] IMPRESSION: SCOLIOSIS AND DEGENERATIVE DISC DISEASE Film Maker: STEPHANIE Transcribe Date/Time: Jan 15 2023 12:54P Dictated by : PRITI JONES MD This examination was interpreted and the report reviewed and electronically signed by: PRITI JONES MD on Jan 15 2023 12:56PM EST DIVISION OF RADIOLOGY IMPRESSION: EXPECTED POSTOPERATIVE APPEARANCE Film Maker: STEPHANIE Transcribe Date/Time: Jan 15 2023 12:52P Dictated by : PRITI JONES MD This examination was interpreted and the report reviewed and electronically signed by: PRITI JONES MD on Jan 15 2023 12:54PM EST DIVISION OF RADIOLOGY [facility] No Panel InformationOrdered By: Ccf Provider on 01-15-2023 [facility] XR Cervical spine 2 or 3 [...] other significant abnormality. DIVISION OF RADIOLOGY Provider, [facility] - 01/15/2023 * * *Final Report* * [...] significant abnormality. IMPRESSION IMPRESSION: EXPECTED POSTOPERATIVE APPEARANCE Film Maker: STEPHANIE Transcribe Date/Time: Jan 15 2023 12:52P Dictated by : PRITI JONES MD This examination was interpreted and the report reviewed and electronically signed by: PRITI JONES MD on Jan 15 2023 12:54PM [facility] XR Cervical spine AP and Lat [...] other significant abnormality. DIVISION OF RADIOLOGY Provider, [facility] - 01/15/2023 * * *Final Report* * [...] significant abnormality. IMPRESSION IMPRESSION: EXPECTED POSTOPERATIVE APPEARANCE Film Maker: STEPHANIE Transcribe Date/Time: Jan 15 2023 12:52P Dictated by : PRITI JONES MD This examination was interpreted and the report reviewed and electronically signed by: PRITI JONES MD on Jan 15 2023 12:54PM [facility] XR Lumbar spine Views W flex [...] the performing technologist (if any): KYPHOSIS (accession [id number]), S/P LUMBAR FUSION (accession [id number]) TECHNIQUE: XR THORACIC 3V AP/LAT/SWIMMERS, XR LUMBAR [...] disc disease in the lower thoracic spine. [place] mild scoliosis centered in the upper lumbar spine with severe multilevel degenerative disc disease in the lumbar spine. Posterior decompression L4 and L5 and partial decompression L3. Mild osteoarthritis of the hips bilaterally. Incidental note of a cardiac loop recorder. No other significant abnormality. DIVISION OF RADIOLOGY Provider, [facility] - 01/15/2023 * * *Final Report* * * DATE OF EXAM: Jan 15 2023 12:27PM CRX [id number] - XR LUMBAR 4V AP/LAT/ FLEX/EXT / PROCEDURE REASON: S/P lumbar fusion * * * * Physician Interpretation * * * * HISTORY (as given from clinical provider): Postural kyphosis of thoracic region . Additional history provided by the performing technologist (if any): KYPHOSIS (accession [id number]), S/P LUMBAR FUSION (accession [id number]) TECHNIQUE: XR THORACIC 3V AP/LAT/SWIMMERS, XR LUMBAR [...] disc disease in the lower thoracic spine. [place] mild scoliosis centered in the upper lumbar spine with severe multilevel degenerative disc disease in the lumbar spine. Posterior decompression L4 and L5 and partial decompression L3. Mild osteoarthritis of the hips bilaterally. Incidental note of a cardiac loop recorder. No other significant abnormality. IMPRESSION IMPRESSION: SCOLIOSIS AND DEGENERATIVE DISC DISEASE Film [facility]: [facility] Transcribe Date/Time: Jan 15 2023 12:54P Dictated by : PRITI JONES MD This examination was interpreted and the report reviewed and electronically signed by: PRITI JONES MD on Jan 15 2023 12:56PM [facility] XR Thoracic spine AP and Lat [...] the performing technologist (if any): KYPHOSIS (accession [id number]), S/P LUMBAR FUSION (accession [id number]) TECHNIQUE: XR THORACIC 3V AP/LAT/SWIMMERS, XR LUMBAR [...] disc disease in the lower thoracic spine. [place] mild scoliosis centered in the upper lumbar spine with severe multilevel degenerative disc disease in the lumbar spine. Posterior decompression L4 and L5 and partial decompression L3. Mild osteoarthritis of the hips bilaterally. Incidental note of a cardiac loop recorder. No other significant abnormality. DIVISION OF RADIOLOGY [facility] * * *Final Report* * * DATE OF EXAM: Jan 15 2023 12:27PM CRX [id number] - XR THORACIC 3V AP/LAT/SWIMMERS / PROCEDURE REASON: Postural kyphosis of thoracic region * * * * Physician Interpretation * * * * HISTORY (as given from clinical provider): Postural kyphosis of thoracic region . Additional history provided by the performing technologist (if any): KYPHOSIS (accession [id number]), S/P LUMBAR FUSION (accession [id number]) TECHNIQUE: XR THORACIC 3V AP/LAT/SWIMMERS, XR LUMBAR [...] disc disease in the lower thoracic spine. [place] mild scoliosis centered in the upper lumbar spine with severe multilevel degenerative disc disease in the lumbar spine. Posterior decompression L4 and L5 and partial decompression L3. Mild osteoarthritis of the hips bilaterally. Incidental note of a cardiac loop recorder. No other significant abnormality. IMPRESSION IMPRESSION: SCOLIOSIS AND DEGENERATIVE DISC DISEASE Film Maker: STEPHANIE Transcribe Date/Time: Jan 15 2023 12:54P Dictated by : PRITI JONES MD This examination was interpreted and the report reviewed and electronically signed by: PRITI JONES MD on Jan 15 2023 12:56PM [facility] metabolic 2000 panelon 01-14-2023 Albumin [Mass/Vol] 3.9 g/dL Normal 3.9-4.9 [facility] Comment on above: Order Comment: Speci men Type: BLOOD SPECIMEN Ordering Facility: [facility] Address: [address] Performed By: #### L IPNF, #### [facility] CLIA [id number] [address] [place] [address] [place] ALP [Catalytic activity/Vol] 78 U/L Normal 34-123 [facility] Comment on above: Order Comment: Speci men Type: BLOOD SPECIMEN Ordering Facility: [facility] Address: [address] [address] Performed By: #### L IPNF, #### [facility] CLIA [id number] [address] [place] [address] [place] ALT [Catalytic activity/Vol] 9 U/L Normal 7-38 [facility] Comment on above: Order Comment: Speci men Type: BLOOD SPECIMEN Ordering Facility: [facility] Address: [address] Performed By: #### L IPNF, #### [facility] CLIA [id number] [address] [place] [address] [place] Anion gap [Moles/Vol] 9 mmol/L Normal 9-18 [facility] Comment on above: Order Comment: Speci men Type: BLOOD SPECIMEN Ordering Facility: [facility] Address: [address] Performed By: #### L IPNF, #### [facility] CLIA [id number] [address] [place] [address] [place] AST [Catalytic activity/Vol] 12 U/L Low 13-35 [facility] Comment on above: Order Comment: Speci men Type: BLOOD SPECIMEN Ordering Facility: [facility] Address: [address] Performed By: #### L IPNF, #### [facility] CLIA [id number] [address] [place] [address] [place] Bilirubin [Mass/Vol] 0.3 mg/dL Normal 0.2-1.3 [facility] Comment on above: Order Comment: Speci men Type: BLOOD SPECIMEN Ordering Facility: [facility] Address: [address] [place] [address] Performed By: #### L IPNF, #### [facility] CLIA [id number] [address] [place] [address] [place] Calcium [Mass/Vol] 10.1 mg/dL Normal 8.5-10.2 [facility] Comment on above: Order Comment: Speci men Type: BLOOD SPECIMEN Ordering Facility: [facility] Address: [address] [place] [address] Performed By: #### L IPNF, #### [facility] CLIA [id number] [address] [place] [address] [place] Chloride [Moles/Vol] 103 mmol/L Normal 97-105 [facility] Comment on above: Order Comment: Speci men Type: BLOOD SPECIMEN Ordering Facility: [facility] Address: [address] [place] [address] Performed By: #### L IPNF, #### [facility] CLIA [id number] [address] [place] [address] [place] CO2 [Moles/Vol] 25 mmol/L Normal 22-30 [facility] Comment on above: Order Comment: Speci men Type: BLOOD SPECIMEN Ordering Facility: [facility] Address: [address] [place] [address] Performed By: #### L IPNF, 33578-9 #### [facility] CLIA [id number] [address] [place] [address] [place] Creatinine [Mass/Vol] 0.63 mg/dL Normal 0.58-0.96 [facility] Comment on above: Order Comment: Speci men Type: BLOOD SPECIMEN Ordering Facility: [facility] Address: [address] [place] [address] Performed By: #### [place], 50110-1 #### [facility] CLIA [id number] [address] [place] [address] [place] Creatinine and Glomerular filtration rate.predicted panel (S/P/Bld) 97 mL/min/1.73m??? Normal >=60 [facility] Comment on above: Order Comment: Luis velez Type: BLOOD SPECIMEN Ordering Facility: [facility] Address: [address] [place] [address] Result Comment: [facility] Glomerular Filtration Rate (eGFR) is calculated using the 2020 CKD-EPI creatinine equation. This equation utilizes serum creatinine, sex, and age as parameters. The creatinine assay has traceable calibration to isotope dilution-mass spectrometry. Refer to KDIGO guidelines for clinical interpretation. In patients with unstable renal function, e.g. those with acute kidney injury, the eGFR may not accurately reflect actual GFR. Performed By: #### [place], 03660-5 #### [facility] CLIA [id number] [address] [place] [address] [place] Glucose [Mass/Vol] 171 mg/dL High 74-99 [facility] Comment on above: Order Comment: Luis velez Type: BLOOD SPECIMEN Ordering Facility: [facility] Address: [address] [place] [address] Result Comment: The [place] Diabetes Association (ADA) provides guidance for cutoff [...] Standards of Medical Care in Diabetes 2016, [place] Diabetes Association. Diabetes Care. 2016.39(Suppl 1). Performed By: #### [place], 65277-2 #### [facility] CLIA [id number] [address] [place] [address] [place] Potassium [Moles/Vol] 4.5 mmol/L Normal 3.7-5.1 [facility] Comment on above: Order Comment: Speci men Type: BLOOD SPECIMEN Ordering Facility: [facility] Address: [address] [place] [address] Performed By: #### L IPNF, 16741-8 #### [facility] CLIA [id number] [address] [place] [address] [place] Protein [Mass/Vol] 5.8 g/dL Low 6.3-8.0 [facility] Comment on above: Order Comment: Speci men Type: BLOOD SPECIMEN Ordering Facility: [facility] Address: [address] [place] [address] Performed By: #### L IPNF, 48541-5 #### [facility] CLIA [id number] [address] [place] [address] [place] Sodium [Moles/Vol] 137 mmol/L Normal 136-144 [facility] Comment on above: Order Comment: Speci men Type: BLOOD SPECIMEN Ordering Facility: [facility] Address: [address] [place] [address] Performed By: #### L IPNF, #### [facility] CLIA [id number] [address] [place] [address] [place] Urea nitrogen [Mass/Vol] 19 mg/dL Normal 7-21 [facility] Comment on above: Order Comment: Speci men Type: BLOOD SPECIMEN Ordering Facility: [facility] Address: [address] [place] [address] Performed By: #### L IPNF, 33157-1 #### [facility] CLIA [id number] [address] [place] [address] [place] HbA1c (Bld)on 01-14-2023 Average glucose Estimated from glycated hemoglobin (Bld) [Mass/Vol] 157 mg/dL Normal [facility] Comment on above: Order Comment: Speci men Type: BLOOD SPECIMEN Ordering Facility: [facility] Address: [address] [id number] Result Comment: eAG: (Estimated average glucose) is a calculated value from HgbA1c and is client services representative of the average blood glucose level in the last 2-3 month period. Performed By: #### 5 5454-3 #### [facility] CLIA [id number] [address] [place] [address] [place] HbA1c (Bld) [Mass fraction] 7.1 % High 4.3-5.6 [facility] Comment on above: Order Comment: Luis rosie Type: BLOOD SPECIMEN Ordering Facility: [facility] Address: [address] [place] [address] Result Comment: [place] Diabetes Association guidelines indicate that patients with HgbA1c in the range 5.7-6.4% are at increased risk for development of diabetes, and intervention by lifestyle modification may be beneficial. HgbA1c greater or equal to 6.5% is considered diagnostic of diabetes. Performed By: #### 5 5454-3 #### [facility] CLIA [id number] [facility] [place] [address] [place] LIPID PANEL, NONFASTINGon Cholesterol [Mass/Vol] 109 mg/dL Normal <200 [facility] Comment on above: Order Comment: Luis rosie Type: BLOOD SPECIMEN Ordering Facility: [facility] Address: [address] [place] [address] Result Comment: <200 mg/dL, Desirable 200-239 mg/dL, Borderline high >239 mg/dL, High Performed By: #### L IPNF, 47301-5 #### [facility] CLIA [id number] [address] [place] [address] [place] HDL CHOLESTEROL, NF 71 mg/dL Normal >39 [facility] Comment on above: Order Comment: Luis rosie Type: BLOOD SPECIMEN Ordering Facility: [facility] Address: [address] [address] Result Comment: 40-5 9 mg/dL, Acceptable >59 mg/dL, High: Negative risk factor for coronary heart disease <40 mg/dL, Low: Positive risk factor for coronary heart disease Performed By: #### L IPNF, 87730-4 #### [facility] CLIA [id number] [address] [place] [address] LDL CHOLESTEROL, NF 22 mg/dL Normal <100 [facility] Comment on above: Order Comment: Luis rosie Type: BLOOD SPECIMEN Ordering Facility: [facility] Address: [address] [place] [address] Result Comment: <100 mg/dL, Optimal 100-129 mg/dL, Near optimal/above optimal 130-159 mg/dL, Borderline high 160-189 mg/dL, High >189 mg/dL, Very high Secondary prevention optimal LDL Cholesterol levels are recommended to be < 70 mg/dL Performed By: #### L IPNF, 60505-8 #### [facility] CLIA [id number] [address] [place] [address] LDL/HDL RATIO, NF 0.31 mg/dL Normal <2.54 [facility] Comment on above: Order Comment: Luis rosie Type: BLOOD SPECIMEN Ordering Facility: [facility] Address: [address] [place] [address] Result Comment: Refe rence: 1. National Cholesterol Education Program ATP III Guideline At-A-Glance Quick Desk Reference: National Heart, Lung, and Blood [place]. National Institutes of Health. 2001: NIH Publication No. 01-3305. 2. An International Atherosclerosis Society position paper: global recommendations for the management of dyslipidemia: executive summary, Atherosclerosis. 2014: 232(2):410-413. Performed By: #### L IPNF, 95375-4 #### [facility] CLIA [id number] [address] [place] [address] NON HDL CHOL, NF 38 mg/dL Normal <130 [facility] Comment on above: Order Comment: Luis rosie Type: BLOOD SPECIMEN Ordering Facility: [facility] Address: [address] [address] Result Comment: <130 mg/dL, Optimal 130-159 mg/dL, Near optimal/above optimal 160-189 mg/dL, Borderline high 190-219 mg/dL, High >219 mg/dL, Very high Secondary prevention optimal non HDL Cholesterol levels are recommended to be <100 mg/dL Performed By: #### L ROSAURA, #### [facility] CLIA [id number] [address] [place] [address] [place] T CHOL/HDL RATIO NF 1.54 mg/dL Normal <5.10 [facility] Comment on above: Order Comment: Speci men Type: BLOOD SPECIMEN Ordering Facility: [facility] Address: [address] [address] Performed By: #### L ROSAURA, #### [facility] CLIA [id number] [address] [place] [address] [place] TRIGLYCERIDES, NF 78 mg/dL Normal <150 [facility] Comment on above: Order Comment: Marii men Type: BLOOD SPECIMEN Ordering Facility: [facility] Address: [address] [place] [address] Result Comment: <150 mg/dL, Normal 150-199 mg/dL, Borderline high 200-499 mg/dL, High >499 mg/dL, Very high Performed By: #### L ROSAURA, #### [facility] CLIA [id number] [address] [place] [address] [place] VLDL CHOLESTEROL, NF 16 mg/dL Normal <30 [facility] Comment on above: Order Comment: Marii men Type: BLOOD SPECIMEN Ordering Facility: [facility] Address: [address] [address] Performed By: #### L ROSAURA, #### [facility] CLIA [id number] [address] [place] [address] [place] Methylmalonate SerPl-sCncon 01-14-2023 Methylmalonate [Moles/Vol] 0.31 umol/L Normal <=0.40 [facility] Comment on above: Order Comment: Speci men Type: BLOOD SPECIMEN Ordering Facility: [facility] Address: [address] [place] [address] Result Comment: This test was developed and its performance characteristics determined by [facility]'s [facility] [place] ([facility]). It has not been cleared or approved by the FDA. [facility] is regulated under CLIA as qualified to perform high-complexity testing. This test is used for clinical purposes. It should not be regarded as investigational or for research. Performed By: #### 1 3964-2 #### [facility] CLIA [id number] [address] [facility] [id number] [place] [address] [place] VITAMIN B12 BLOODon 01-15-20 23 Cobalamin (Vitamin B12) [Mass/Vol] 324 pg/mL 232 - 1,245 pg/mL [facility] Vit B12 SerPl-mCncon 023 Cobalamin (Vitamin B12) [Mass/Vol] 324 pg/mL Normal 232-1245 [facility] Comment on above: Order Comment: Speci men Type: BLOOD SPECIMEN Ordering Facility: [facility] Address: [address] [place] [id number] Performed By: #### 2 132-9 #### [facility] CLIA [id number] [address] [place] [address] [place] XR KNEE GENERAL 4V AP BOTH/P A BOTH/LAT/MERC BILATERALon 11-04-2022 [facility] No Panel Informationon 08-22 Brain Enhancing Lesions None [facility] Brain Interval Improvement None [facility] Brain New T2 Lesions None [facility] Brain Other Significant MRI Findings None. [facility] Brain Parenchymal Volume Loss Mild [facility] Brain T2 [place] of Disease Moderate [facility] Cervical spine enhancing lesions None [facility] Cervical Spine New T2 Lesions None [facility] Cervical Spine T2 [place] of Disease None [facility] HEMOGLOBIN A1C (POC)on 08-06 HbA1c (Bld) [Mass fraction] 8.5 % Abnormal 4.2 - 5.6 % [facility] Absolute lymphocyte counton 04-02-2022 Lymphocytes Auto (Unsp spec) [#/Vol] 1.16 10*3/uL 0.83-4.51 [facility] Work Phone: Basophil percentageon 2021 Basophil percentage 0 SEEN /hpf 0-5 [facility] Work Phone: Basophils/100 WBC (Bld) 0.7 % 0-1 [facility] Work Phone: Chloride [Moles/Vol] 106 mmol/L 98-107 [facility] Work Phone: Eosinophils/100 WBC (Bld) 3.9 % 0-5 [facility] Work Phone: Glucose [Mass/Vol] 240 mg/dL 74-106 [facility] Work Phone: Comment on above: Glucose result great er than or equal to 200 mg/dLsuggests DIABETES MELLITUS per A.D.A. criteria. Neutrophils (Bld) [#/Vol] 3.9 10*3/uL 2.0-7.7 [facility] Work Phone: Neutrophils/100 WBC (Bld) 65.4 % 47-70 [facility] Work Phone: Potassium [Moles/Vol] 4.2 mmol/L 3.5-5.[address] [facility] Work Phone: Sodium [Moles/Vol] 136 mmol/L 136-145 [facility] Work Phone: WBC (Bld) [#/Vol] 5.9 10*3/uL 4.4-11.0 [facility] Work Phone: Bilirubin Test strip Ql (U)o n 04-02-2022 Bilirubin Ql (U) Negative Negative [facility] Work Phone: Blood erythrocytes count (nu mber/volume)on 04-02-2022 RBC (Bld) [#/Vol] 3.99 10*6/uL 4.2-5.4 [facility] Work Phone: Blood hemoglobin measurement (mass/volume)on 04-02-2022 Hemoglobin (Bld) [Mass/Vol] 12.1 g/dL 12.0-15.0 [facility] Work Phone: Blood lymphocytes/100 leukoc yteson 04-02-2022 Lymphocytes/100 WBC (Bld) 19.7 % 19-41 [facility] Work Phone: Blood monocytes/100 leukocyt eson 04-02-2022 Monocytes/100 WBC (Bld) 9.8 % 0-10 [facility] Work Phone: Blood platelet mean volumeon 04-02-2022 Platelet mean volume (Bld) [Entitic vol] 10.0 fL 6.2-12.0 [facility] Work Phone: Determination of erythrocyte mean corpuscular volume (MCV)on 04-02-2022 MCV (RBC) [Entitic vol] 94.2 fL 81-99 [facility] Work Phone: Hematocrit Auto (Bld) [Volum e fraction]on 04-02-2022 Hematocrit (Bld) [Volume fraction] 37.6 % 37-47 [facility] Work Phone: Ketones Test strip Ql (U)on 04-02-2022 Ketones Ql (U) Negative Negative [facility] Work Phone: [phone] Laboratory - Chemistry and C hemistry - challengeon 04-02-2022 Lipase [Catalytic activity/Vol] 120 U/L 73-393 [facility] Work Phone: CO2 [Moles/Vol] 25.0 mmol/L 21.0-32.0 [facility] Work Phone: Urea nitrogen/Creatinine [Mass ratio] 24.5 mg/mg 10-20 [facility] Work Phone: Laboratory - Hematology and Cell countson 04-02-2022 Erythrocyte distribution width (RBC) [Entitic vol] 58.1 fL 35.1-43.9 [facility] Work Phone: Erythrocyte distribution width (RBC) [Ratio] 16.6 % 11.6-14.6 [facility] Work Phone: Immature granulocytes/100 WBC (Bld) 0.500 % 0.0-0.9 [facility] Work Phone: Comment on above: IG% - Immature Granu locytes (promyelocytes, myelocytes and metamyelocytes) > 1% indicates that a LEFT SHIFT is Present. MCH (RBC) [Entitic mass] 30.3 pg 27.0-32.0 [facility] Work Phone: Nucleated RBC/100 WBC (Bld) [Ratio] 0 % 0-5 [facility] Work Phone: [phone] MCHC Auto (RBC) [Mass/Vol]on 04-02-2022 MCHC (RBC) [Mass/Vol] 32.2 g/dL 32-[address] [facility] Work Phone: [phone] Mucus LM Ql (Urine sed)on Mucus Ql (Urine sed) 0 SEEN /hpf [facility] Work Phone: [phone] Nitrite Test strip Ql (U)on 04-02-2022 Nitrite Ql (U) Negative Negative [facility] Work Phone: No Panel Informationon 04-02 Troponin I High Sensitivity 9 pg/mL 3.0-54.0 [facility] Work Phone: Comment on above: Please Note: New Viviane t Units and Gender Specific Reference Ranges. For more information see Policy Stat Procedure [place] High Sensitivity Troponin (TNIH) and attachments. Estimated Creatinine Clearance Calc 47.97 ml/min [facility] Work Phone: Estimated GFR (MDRD) Amer 80 mL/min >60 [facility] Work Phone: [phone] Comment on above: GFR Calc Estimated GFR (MDRD) Non-Af Amer 66 mL/min >60 [facility] Work Phone: [phone] Comment on above: Non- GFR Calc Platelets bldon 04-02-2022 Platelets (Bld) [#/Vol] 216 10*3/uL 150-450 [facility] Work Phone: [phone] Protein Test strip Ql (U)on 04-02-2022 Protein Ql (U) Negative Negative [facility] Work Phone: Serum or plasma calcium chula urement (mass/volume)on 04-02-2022 Calcium [Mass/Vol] 9.5 mg/dL 8.5-10.1 [facility] Work Phone: Serum or plasma creatinine m easurement (mass/volume)on 04-02-2022 Creatinine [Mass/Vol] 0.90 mg/dL 0.55-1.[address] [facility] Work Phone: Comment on above: The validity of the calculated GFR & GFRAA in patients over 70 years has not been determined. Clinical correlation is essential. Serum or plasma urea nitroge n measurement (mass/volume)on 04-02-2022 Urea nitrogen [Mass/Vol] 22 mg/dL 7-18 [facility] Work Phone: Squamous epithelial cells de tection in urine sediment by light microscopyon 04-02-2022 Epithelial cells.squamous LM Ql (Urine sed) 0 SEEN /hpf 5-10 [facility] Work Phone: Thin prep Papanicolaou smear with manual screeningon 04-02-2022 Thin prep Papanicolaou smear with manual screening 5 5-15 [facility] Work Phone: Urine blood detectionon RBC Ql (U) Negative Negative [facility] Work Phone: RBC Ql (U) 0 SEEN /hpf 0-5 [facility] Work Phone: Urine clarityon 04-02-2022 Clarity (U) Clear Clear [facility] Work Phone: Urine color determinationon 04-02-2022 Color (U) Yellow Yellow [facility] Work Phone: Urine glucose detectionon Glucose Ql (U) Normal mg/dl Normal [facility] Work Phone: Urine leukocyte esterase det ection by dipstickon 04-02-2022 Leukocyte esterase Test strip Ql (U) 25 /ul Negative [facility] Work Phone: Urine pHon 04-02-2022 pH (U) 7.0 [pH] 5.0 - 8.0 [facility] Work Phone: Urine sediment bacteria coun t by microscopy (number/high power field)on 04-02-2022 Bacteria LM.HPF (Urine sed) [#/Area] 0 /[HPF] None Seen [facility] Work Phone: Urine specific gravity measu rementon 04-02-2022 Specific gravity (U) [Rel density] 1.010 1.002-1.030 [facility] Work Phone: Urobilinogen Auto test strip Ql (U)on 04-02-2022 Urobilinogen Ql (U) Normal mg/dl Normal [facility] Work Phone: Absolute lymphocyte counton 02-07-2022 Lymphocytes Auto (Unsp spec) [#/Vol] 1.78 10*3/uL 0.83-4.51 [facility] Work Phone: Basophil percentageon 2021 Basophil percentage 10-25 SEEN /hpf 0-5 [facility] Work Phone: Basophils/100 WBC (Bld) 1.5 % 0-1 [facility] Work Phone: Bilirubin [Mass/Vol] 0.20 mg/dL 0.20-1.00 [facility] Work Phone: Comment on above: For patients on eltr ombopag therapy, use of Dimension [place] TBIL is not recommended. Chloride [Moles/Vol] 109 mmol/L 98-107 [facility] Work Phone: Eosinophils/100 WBC (Bld) 5.7 % 0-5 [facility] Work Phone: Glucose [Mass/Vol] 156 mg/dL 74-106 [facility] Work Phone: Comment on above: Fasting Glucose resu lt greater than or equal to 126 mg/dL suggests DIABETES MELLITUS per A.D.A. criteria. Neutrophils (Bld) [#/Vol] 3.2 10*3/uL 2.0-7.7 [facility] Work Phone: Neutrophils/100 WBC (Bld) 52.6 % 47-70 [facility] Work Phone: Potassium [Moles/Vol] 4.1 mmol/L 3.5-5.1 [facility] Work [facility]: Protein [Mass/Vol] 6.2 g/dL 6.4-8.2 [facility] Work Phone: Sodium [Moles/Vol] 138 mmol/L 136-145 [facility] Work Phone: WBC (Bld) [#/Vol] 6.2 10*3/uL 4.4-11.0 [facility] Work Phone: Bilirubin Test strip Ql (U)o n 02-07-2022 Bilirubin Ql (U) Negative Negative [facility] Work Phone: Blood erythrocytes count (nu mber/volume)on 02-07-2022 RBC (Bld) [#/Vol] 3.88 10*6/uL 4.2-5.4 [facility] Work Phone: Blood hemoglobin measurement (mass/volume)on 02-07-2022 Hemoglobin (Bld) [Mass/Vol] 11.6 g/dL 12.0-15.0 [facility] Work Phone: Blood lymphocytes/100 leukoc yteson 02-07-2022 Lymphocytes/100 WBC (Bld) 28.9 % 19-41 [facility] Work Phone: Blood monocytes/100 leukocyt eson 02-07-2022 Monocytes/100 WBC (Bld) 11.0 % 0-10 [facility] Work Phone: Blood platelet mean volumeon 02-07-2022 Platelet mean volume (Bld) [Entitic vol] 9.1 fL 6.2-12.0 [facility] Work Phone: Determination of erythrocyte mean corpuscular volume (MCV)on 02-07-2022 MCV (RBC) [Entitic vol] 93.8 fL 81-99 [facility] Work Phone: [phone] Hematocrit Auto (Bld) [Volum e fraction]on 02-07-2022 Hematocrit (Bld) [Volume fraction] 36.4 % 37-47 [facility] Work Phone: [phone] Ketones Test strip Ql (U)on 02-07-2022 Ketones Ql (U) Negative Negative [facility] Work Phone: [phone] Laboratory - Chemistry and C hemistry - challengeon 02-07-2022 ALP [Catalytic activity/Vol] 89 U/L 45-117 [facility] Work Phone: [phone] ALT [Catalytic activity/Vol] 17 U/L 13-56 [facility] Work Phone: [phone] CO2 [Moles/Vol] 23.0 mmol/L 21.0-32.0 [facility] Work Phone: [phone] Globulin (S) [Mass/Vol] 3.1 g/dL 2.2-4.2 [facility] Work Phone: [phone] Urea nitrogen/Creatinine [Mass ratio] 20.6 mg/mg 10-20 [facility] Work Phone: [phone] Laboratory - Hematology and Cell countson 02-07-2022 Erythrocyte distribution width (RBC) [Entitic vol] 53.2 fL 35.1-43.9 [facility] Work Phone: [phone] Erythrocyte distribution width (RBC) [Ratio] 15.3 % 11.6-14.6 [facility] Work Phone: [phone] Immature granulocytes/100 WBC (Bld) 0.300 % 0.0-0.9 [facility] Work Phone: [phone] Comment on above: IG% - Immature Granu locytes (promyelocytes, myelocytes and metamyelocytes) > 1% indicates that a LEFT SHIFT is Present. MCH (RBC) [Entitic mass] 29.9 pg 27.0-32.0 [facility] Work Phone: Nucleated RBC/100 WBC (Bld) [Ratio] 0 % 0-5 [facility] Work Phone: MCHC Auto (RBC) [Mass/Vol]on 02-07-2022 MCHC (RBC) [Mass/Vol] 31.9 g/dL 32-[address] [facility] Work Phone: Mucus LM Ql (Urine sed)on Mucus Ql (Urine sed) 0 SEEN /hpf [facility] Work Phone: [phone] Nitrite Test strip Ql (U)on 02-07-2022 Nitrite Ql (U) Negative Negative [facility] Work Phone: No Panel Informationon 02-07 Estimated Creatinine Clearance Calc 42.33 ml/min [facility] Work Phone: Estimated GFR (MDRD) Amer 70 mL/min >60 [facility] Work Phone: Comment on above: GFR Calc Estimated GFR (MDRD) Non-Af Amer 57 mL/min >60 [facility] Work Phone: Comment on above: Non- GFR Calc Troponin I High Sensitivity 7 pg/mL 3.0-54.0 [facility] Work Phone: Comment on above: Please Note: New [place]iane t Units and Gender Specific Reference Ranges. For more information see Policy Stat Procedure [place] High Sensitivity Troponin (TNIH) and attachments. Platelets bldon 02-07-2022 Platelets (Bld) [#/Vol] 223 10*3/uL 150-450 [facility] Work Phone: [phone] Protein Test strip Ql (U)on 02-07-2022 Protein Ql (U) 15 mg/dl Negative [facility] Work Phone: [phone] Serum or plasma albumin chula urement (mass/volume)on 02-07-2022 Albumin [Mass/Vol] 3.1 g/dL 3.2-5.0 [facility] Work Phone: [phone] Serum or plasma albumin/glob ulin mass ratioon 02-07-2022 Albumin/Globulin [Mass ratio] 1.0 {ratio} 0.9-2.4 [facility] Work Phone: Serum or plasma calcium chula urement (mass/volume)on 02-07-2022 Calcium [Mass/Vol] 9.2 mg/dL 8.5-10.1 [facility] Work Phone: Serum or plasma creatinine m easurement (mass/volume)on 02-07-2022 Creatinine [Mass/Vol] 1.02 mg/dL 0.55-1.[address] [facility] Work Phone: Comment on above: The validity of the calculated GFR & GFRAA in patients over 70 years has not been determined. Clinical correlation is essential. Serum or plasma urea nitroge n measurement (mass/volume)on 02-07-2022 Urea nitrogen [Mass/Vol] 21 mg/dL 7-18 [facility] Work Phone: Squamous epithelial cells de tection in urine sediment by light microscopyon 02-07-2022 Epithelial cells.squamous LM Ql (Urine sed) 0-5 SEEN /hpf 5-10 [facility] Work Phone: Thin prep Papanicolaou smear with manual screeningon 02-07-2022 Thin prep Papanicolaou smear with manual screening 12 U/L 15-37 [facility] Work Phone: Thin prep Papanicolaou smear with manual screening 6 5-15 [facility] Work Phone: Urine blood detectionon 01-25 RBC Ql (U) Negative Negative [facility] Work Phone: RBC Ql (U) 0 SEEN /hpf 0-5 [facility] Work Phone: Urine clarityon 02-07-2022 Clarity (U) Clear Clear [facility] Work Phone: Urine color determinationon 02-07-2022 Color (U) Yellow Yellow [facility] Work Phone: Urine glucose detectionon Glucose Ql (U) Normal mg/dl Normal [facility] Work Phone: Urine leukocyte esterase det ection by dipstickon 02-07-2022 Leukocyte esterase Test strip Ql (U) 500 /ul Negative [facility] Work Phone: Urine pHon 02-07-2022 pH (U) 5.0 [pH] 5.0 - 8.0 [facility] Work Phone: Urine sediment bacteria coun t by microscopy (number/high power field)on 02-07-2022 Bacteria LM.HPF (Urine sed) [#/Area] 3 /[HPF] None Seen [facility] Work Phone: Urine specific gravity measu rementon 02-07-2022 Specific gravity (U) [Rel density] 1.020 1.002-1.030 [facility] Work Phone: Urobilinogen Auto test strip Ql (U)on 02-07-2022 Urobilinogen Ql (U) Normal mg/dl Normal [facility] Work Phone: Laboratory - Hematology and Cell countson 12-24-2021 HbA1c (Bld) [Mass fraction] 5.9 % 4.2-6.3 [facility] Work Phone: Glucose Glucometer (BldC) [M ass/Vol]on 11-20-2021 Glucose [Mass/Vol] 191 mg/dL 74-106 [facility] Work Phone: Comment on above: MANAGEMENT OF PATIEN T CARE PER NURSING PROTOCOL Absolute lymphocyte counton 11-17-2021 Lymphocytes Auto (Unsp spec) [#/Vol] 1.46 10*3/uL 0.83-4.51 [facility] Work Phone: Basophil percentageon 2021 Basophils/100 WBC (Bld) 0.6 % 0-1 [facility] Work Phone: Chloride [Moles/Vol] 110 mmol/L 98-107 [facility] Work Phone: Eosinophils/100 WBC (Bld) 1.4 % 0-5 [facility] Work Phone: Glucose [Mass/Vol] 168 mg/dL 74-106 [facility] Work Phone: Comment on above: Fasting Glucose resu lt greater than or equal to 126 mg/dL suggests DIABETES MELLITUS per A.D.A. criteria. Neutrophils (Bld) [#/Vol] 11.4 10*3/uL 2.0-7.7 [facility] Work Phone: Neutrophils/100 WBC (Bld) 80.8 % 47-70 [facility] Work Phone: [phone] Potassium [Moles/Vol] 3.8 mmol/L 3.5-5.[address] [facility] Work Phone: Sodium [Moles/Vol] 138 mmol/L 136-145 [facility] Work Phone: [phone] WBC (Bld) [#/Vol] 14.1 10*3/uL 4.4-11.0 [facility] Work Phone: [phone] Lactate [Moles/Vol] 1.0 mmol/L 0.4-2.0 [facility] Work Phone: [phone] Blood erythrocytes count (nu mber/volume)on 11-17-2021 RBC (Bld) [#/Vol] 3.25 10*6/uL 4.2-5.4 [facility] Work Phone: Blood hemoglobin measurement (mass/volume)on 11-17-2021 Hemoglobin (Bld) [Mass/Vol] 9.1 g/dL 12.0-15.0 [facility] Work Phone: [phone] Blood lymphocytes/100 leukoc yteson 11-17-2021 Lymphocytes/100 WBC (Bld) 10.4 % 19-41 [facility] Work Phone: Blood manual differential co mment interpretation (narrative result)on 11-17-2021 Manual differential comment Blayne (Bld) [Interp] SCANNED [facility] Work Phone: Blood monocytes/100 leukocyt eson 11-17-2021 Monocytes/100 WBC (Bld) 6.2 % 0-10 [facility] Work Phone: [phone] Blood platelet mean volumeon 11-17-2021 Platelet mean volume (Bld) [Entitic vol] 9.5 fL 6.2-12.0 [facility] Work Phone: [phone] Determination of erythrocyte mean corpuscular volume (MCV)on 11-17-2021 MCV (RBC) [Entitic vol] 91.4 fL 81-99 [facility] Work Phone: [phone] Hematocrit Auto (Bld) [Volum e fraction]on 11-17-2021 Hematocrit (Bld) [Volume fraction] 29.7 % 37-47 [facility] Work Phone: [phone] Laboratory - Chemistry and C hemistry - challengeon 11-17-2021 CO2 [Moles/Vol] 22.0 mmol/L 21.0-32.0 [facility] Work Phone: [phone] nitrogen/Creatinine [Mass ratio] 22.3 mg/mg 10-20 [facility] Work Phone: [phone] Laboratory - Hematology and Cell countson 11-17-2021 Anisocytosis [facility]l (Bld) [facility]: [phone] Erythrocyte distribution width (RBC) [Entitic vol] 65.8 fL 35.1-43.9 [facility] Work Phone: [phone] Erythrocyte distribution width (RBC) [Ratio] 19.6 % 11.6-14.6 [facility] Work Phone: [phone] Immature granulocytes/100 WBC (Bld) 0.600 % 0.0-0.9 [facility] Work Phone: [phone] Comment on above: IG% - Immature Granu locytes (promyelocytes, myelocytes and metamyelocytes) > 1% indicates that a LEFT SHIFT is Present. MCH (RBC) [Entitic mass] 28.0 pg 27.0-32.0 [facility] Work Phone: [phone] Nucleated RBC/100 WBC (Bld) [Ratio] 0 % 0-5 [facility] Work Phone: [phone] MCHC Auto (RBC) [Mass/Vol]on 11-17-2021 MCHC (RBC) [Mass/Vol] 30.6 g/dL 32-[address] [facility] Work Phone: Macrocytes detectionon 11-17 Macrocytes Ql (Bld) RARE [facility] Work Phone: No Panel Informationon 11-17 Estimated Creatinine Clearance Calc 36.17 ml/min [facility] Work Phone: Estimated GFR (MDRD) Amer 57 mL/min >60 [facility] Work Phone: Comment on above: GFR Calc Estimated GFR (MDRD) Non-Af Amer 47 mL/min >60 [facility] Work Phone: Comment on above: Non- GFR Calc Platelets bldon 11-17-2021 Platelets (Bld) [#/Vol] 213 10*3/uL 150-450 [facility] Work Phone: Serum or plasma calcium chula urement (mass/volume)on 11-17-2021 Calcium [Mass/Vol] 8.5 mg/dL 8.5-10.1 [facility] Work Phone: Serum or plasma creatinine m easurement (mass/volume)on 11-17-2021 Creatinine [Mass/Vol] 1.21 mg/dL 0.55-1.[address] [facility] Work Phone: Comment on above: The validity of the calculated GFR & GFRAA in patients over 70 years has not been determined. Clinical correlation is essential. Serum or plasma urea nitroge n measurement (mass/volume)on 11-17-2021 Urea nitrogen [Mass/Vol] 27 mg/dL 7-18 [facility] Work Phone: [phone] Thin prep Papanicolaou smear with manual screeningon 11-17-2021 Thin prep Papanicolaou smear with manual screening RARE [facility] Work Phone: [phone] Thin prep Papanicolaou smear with manual screening 6 5-15 [facility] Work Phone: [phone] Absolute lymphocyte counton 11-16-2021 Lymphocytes Auto (Unsp spec) [#/Vol] 1.70 10*3/uL 0.83-4.51 [facility] Work Phone: Basophil percentageon 2021 Basophil percentage >100 SEEN /hpf 0-5 [facility] Work Phone: Basophils/100 WBC (Bld) 0.8 % 0-1 [facility] Work Phone: Bilirubin [Mass/Vol] 0.50 mg/dL 0.20-1.00 [facility] Work Phone: Comment on above: For patients on eltr ombopag therapy, use of Dimension [place] TBIL is not recommended. Chloride [Moles/Vol] 104 mmol/L 98-107 [facility] Work Phone: Eosinophils/100 WBC (Bld) 1.7 % 0-5 [facility] Work Phone: [phone] Glucose [Mass/Vol] 166 mg/dL 74-106 [facility] Work Phone: Comment on above: Fasting Glucose resu lt greater than or equal to 126 mg/dL suggests DIABETES MELLITUS per A.D.A. criteria. Lactate [Moles/Vol] 2.5 mmol/L 0.4-2.0 [facility] Work Phone: Comment on above: Critical Result(s) C alled at: 20:31:32 11/16/2021 by: Maira clifton TO [email or web address]. Results read back by same. Neutrophils (Bld) [#/Vol] 8.4 10*3/uL 2.0-7.7 [facility] Work Phone: Neutrophils/100 WBC (Bld) 74.9 % 47-70 [facility] Work Phone: [phone] Potassium [Moles/Vol] 5.0 mmol/L 3.5-5.[address] [facility] Work Phone: [phone] Comment on above: Slight Hemolysis, Re sult may be falsely increased. Protein [Mass/Vol] 6.8 g/dL 6.4-8.2 [facility] Work Phone: Sodium [Moles/Vol] 133 mmol/L 136-145 [facility] Work Phone: WBC (Bld) [#/Vol] 11.2 10*3/uL 4.4-11.0 [facility] Work Phone: Bilirubin Test strip Ql (U)o n 11-16-2021 Bilirubin Ql (U) Negative Negative [facility] Work Phone: [phone] Blood erythrocytes count (nu mber/volume)on 11-16-2021 RBC (Bld) [#/Vol] 4.06 10*6/uL 4.2-5.4 [facility] Work Phone: Blood hemoglobin measurement (mass/volume)on 11-16-2021 Hemoglobin (Bld) [Mass/Vol] 11.5 g/dL 12.0-15.0 [facility] Work Phone: [phone] Blood lymphocytes/100 leukoc yteson 11-16-2021 Lymphocytes/100 WBC (Bld) 15.2 % 19-41 [facility] Work Phone: [phone] Blood monocytes/100 leukocyt eson 11-16-2021 Monocytes/100 WBC (Bld) 7.0 % 0-10 [facility] Work Phone: Blood platelet mean volumeon 11-16-2021 Platelet mean volume (Bld) [Entitic vol] 9.6 fL 6.2-12.0 [facility] Work Phone: Determination of erythrocyte mean corpuscular volume (MCV)on 11-16-2021 MCV (RBC) [Entitic vol] 89.7 fL 81-99 [facility] Work Phone: [phone] Hematocrit Auto (Bld) [Volum e fraction]on 11-16-2021 Hematocrit (Bld) [Volume fraction] 36.4 % 37-47 [facility] Work Phone: Ketones Test strip Ql (U)on 11-16-2021 Ketones Ql (U) 5 mg/dl Negative [facility] Work Phone: [phone] Laboratory - Chemistry and C hemistry - challengeon 11-16-2021 ALP [Catalytic activity/Vol] 88 U/L 45-117 [facility] Work Phone: [phone] ALT [Catalytic activity/Vol] 20 U/L 13-56 [facility] Work Phone: [phone] CO2 [Moles/Vol] 21.0 mmol/L 21.0-32.0 [facility] Work Phone: [phone] Globulin (S) [Mass/Vol] 3.4 g/dL 2.2-4.2 [facility] Work Phone: [phone] Urea nitrogen/Creatinine [Mass ratio] 16.7 mg/mg 10-20 [facility] Work Phone: [phone] Laboratory - Hematology and Cell countson 11-16-2021 Erythrocyte distribution width (RBC) [Entitic vol] 64.3 fL 35.1-43.9 [facility] Work Phone: [phone] Erythrocyte distribution width (RBC) [Ratio] 19.7 % 11.6-14.6 [facility] Work Phone: [phone] Immature granulocytes/100 WBC (Bld) 0.400 % 0.0-0.9 [facility] Work Phone: [phone] Comment on above: IG% - Immature Granu locytes (promyelocytes, myelocytes and metamyelocytes) > 1% indicates that a LEFT SHIFT is Present. MCH (RBC) [Entitic mass] 28.3 pg 27.0-32.0 [facility] Work Phone: [phone] Nucleated RBC/100 WBC (Bld) [Ratio] 0 % 0-5 [facility] Work Phone: [phone] MCHC Auto (RBC) [Mass/Vol]on 11-16-2021 MCHC (RBC) [Mass/Vol] 31.6 g/dL 32-[address] [facility] Work Phone: [phone] Mucus LM Ql (Urine sed)on Mucus Ql (Urine sed) 0 SEEN /hpf [facility] Work Phone: Nitrite Test strip Ql (U)on 11-16-2021 Nitrite Ql (U) Negative Negative [facility] Work Phone: No Panel Informationon 11-16 Estimated Creatinine Clearance Calc 31.64 ml/min [facility] Work Phone: Estimated GFR (MDRD) Amer 52 mL/min >60 [facility] Work Phone: Comment on above: GFR Calc Estimated GFR (MDRD) Non-Af Amer 43 mL/min >60 [facility] Work Phone: Comment on above: Non- GFR Calc Troponin I High Sensitivity 9 pg/mL 3.0-54.0 [facility] Work Phone: Comment on above: Please Note: New Viviane t Units and Gender Specific Reference Ranges. For more information see Policy Stat Procedure [place] High Sensitivity Troponin (TNIH) and attachments. Platelets bldon 11-16-2021 Platelets (Bld) [#/Vol] 266 10*3/uL 150-450 [facility] Work Phone: Protein Test strip Ql (U)on 11-16-2021 Protein Ql (U) 30 mg/dl Negative [facility] Work Phone: [phone] Serum or plasma albumin chula urement (mass/volume)on 11-16-2021 Albumin [Mass/Vol] 3.4 g/dL 3.2-5.0 [facility] Work Phone: [phone] Serum or plasma albumin/glob ulin mass ratioon 11-16-2021 Albumin/Globulin [Mass ratio] 1.0 {ratio} 0.9-2.4 [facility] Work Phone: [phone] Serum or plasma calcium chula urement (mass/volume)on 11-16-2021 Calcium [Mass/Vol] 9.8 mg/dL 8.5-10.1 [facility] Work Phone: [phone] Serum or plasma creatinine m easurement (mass/volume)on 11-16-2021 Creatinine [Mass/Vol] 1.32 mg/dL 0.55-1.[address] [facility] Work Phone: Comment on above: The validity of the calculated GFR & GFRAA in patients over 70 years has not been determined. Clinical correlation is essential. Serum or plasma urea nitroge n measurement (mass/volume)on 11-16-2021 Urea nitrogen [Mass/Vol] 22 mg/dL 7-18 [facility] Work Phone: Squamous epithelial cells de tection in urine sediment by light microscopyon 11-16-2021 Epithelial cells.squamous LM Ql (Urine sed) 0-5 SEEN /hpf 5-10 [facility] Work Phone: Thin prep Papanicolaou smear with manual screeningon 11-16-2021 Thin prep Papanicolaou smear with manual screening 24 U/L 15-37 [facility] Work Phone: Comment on above: Slight Hemolysis, Re sult may be falsely increased. Thin prep Papanicolaou smear with manual screening 8 5-15 [facility] Work Phone: Urine blood detectionon 10-26 RBC Ql (U) 150 /ul Negative [facility] Work Phone: RBC Ql (U) 0 SEEN /hpf 0-5 [facility] Work Phone: Urine clarityon 11-16-2021 Clarity (U) Cloudy Clear [facility] Work Phone: Urine color determinationon 11-16-2021 Color (U) Yellow Yellow [facility] Work Phone: Urine glucose detectionon Glucose Ql (U) Normal mg/dl Normal [facility] Work Phone: Urine leukocyte esterase det ection by dipstickon 11-16-2021 Leukocyte esterase Test strip Ql (U) 500 /ul Negative [facility] Work Phone: Urine pHon 11-16-2021 pH (U) 5.0 [pH] 5.0 - 8.0 [facility] Work Phone: Urine sediment bacteria coun t by microscopy (number/high power field)on 11-16-2021 Bacteria LM.HPF (Urine sed) [#/Area] 0 /[HPF] None Seen [facility] Work Phone: Urine specific gravity measu rementon 11-16-2021 Specific gravity (U) [Rel density] 1.020 1.002-1.030 [facility] Work Phone: Urobilinogen Auto test strip Ql (U)on 11-16-2021 Urobilinogen Ql (U) Normal mg/dl [facility] Work [facility]: Absolute lymphocyte counton 08-21-2021 Lymphocytes Auto (Unsp spec) [#/Vol] 1.62 10*3/uL 0.83-4.51 [facility] Work Phone: Basophil percentageon 2021 Basophil percentage 136 mg/dL 74-106 [facility] Work Phone: Basophil percentage 6.3 g/dL 6.4-8.2 [facility] Work Phone: Basophil percentage 0.20 mg/dL 0.20-1.00 [facility] Work Phone: Basophil percentage 138 mmol/L 136-145 [facility] Work Phone: Basophil percentage 3.9 mmol/L 3.5-5.1 [facility] Work Phone: Basophil percentage 107 mmol/L 98-107 [facility] Work Phone: Basophils (Bld) [#/Vol] 4.6 10*3/uL 4.4-11.0 [facility] Work Phone: Basophils (Bld) [#/Vol] 2.1 10*3/uL 2.0-7.7 [facility] Work Phone: Basophils/100 WBC (Bld) 45.0 % 47-70 [facility] Work Phone: Basophils/100 WBC (Bld) 4.6 % 0-5 [facility] Work Phone: Basophils/100 WBC (Bld) 1.7 % 0-1 [facility] Work Phone: Bilirubin [Mass/Vol] 0.20 mg/dL 0.20-1.00 [facility] Work Phone: Comment on above: For patients on eltr ombopag therapy, use of Dimension [place] TBIL is not recommended. Chloride [Moles/Vol] 107 mmol/L 98-107 [facility] Work Phone: Eosinophils/100 WBC (Bld) 4.6 % 0-5 [facility] Work Phone: [phone] Glucose [Mass/Vol] 136 mg/dL 74-106 [facility] Work Phone: Comment on above: Fasting Glucose resu lt greater than or equal to 126 mg/dL suggests DIABETES MELLITUS per A.D.A. criteria. Neutrophils (Bld) [#/Vol] 2.1 10*3/uL 2.0-7.7 [facility] Work Phone: Neutrophils/100 WBC (Bld) 45.0 % 47-70 [facility] Work Phone: [phone] Potassium [Moles/Vol] 3.9 mmol/L 3.5-5.[address] [facility] Work Phone: Protein [Mass/Vol] 6.3 g/dL 6.4-8.2 [facility] Work Phone: Sodium [Moles/Vol] 138 mmol/L 136-145 [facility] Work Phone: WBC (Bld) [#/Vol] 4.6 10*3/uL 4.4-11.0 [facility] Work Phone: Basophil percentage 5-10 SEEN /hpf 0-5 [facility] Work Phone: Bilirubin Test strip Ql (U)o n 08-21-2021 Bilirubin Ql (U) Negative Negative [facility] Work Phone: Blood erythrocytes count (nu mber/volume)on 08-21-2021 RBC (Bld) [#/Vol] 4.08 10*6/uL 4.2-5.4 [facility] Work Phone: Blood hemoglobin measurement (mass/volume)on 08-21-2021 Hemoglobin (Bld) [Mass/Vol] 11.6 g/dL 12.0-15.0 [facility] Work Phone: [phone] Blood lymphocytes/100 leukoc yteson 08-21-2021 Lymphocytes/100 WBC (Bld) 35.1 % 19-41 [facility] Work Phone: [phone] Blood monocytes/100 leukocyt eson 08-21-2021 Monocytes/100 WBC (Bld) 13.4 % 0-10 [facility] Work Phone: [phone] Blood platelet mean volumeon 08-21-2021 Platelet mean volume (Bld) [Entitic vol] 9.7 fL 6.2-12.0 [facility] Work Phone: [phone] Determination of erythrocyte mean corpuscular volume (MCV)on 08-21-2021 MCV (RBC) [Entitic vol] 88.7 fL 81-99 [facility] Work Phone: [phone] Hematocrit Auto (Bld) [Volum e fraction]on 08-21-2021 Hematocrit (Bld) [Volume fraction] 36.2 % 37-47 [facility] Work Phone: [phone] Ketones Test strip Ql (U)on 08-21-2021 Ketones Ql (U) Negative Negative [facility] Work Phone: [phone] Laboratory - Chemistry and C hemistry - challengeon 08-21-2021 ALP [Catalytic activity/Vol] 76 U/L 45-117 [facility] Work Phone: ALT [Catalytic activity/Vol] 16 U/L 13-56 [facility] Work Phone: [phone] CO2 [Moles/Vol] 26.0 mmol/L 21.0-32.0 [facility] Work Phone: [phone] Globulin (S) [Mass/Vol] 3.2 g/dL 2.2-4.2 [facility] Work Phone: [phone] Urea nitrogen/Creatinine [Mass ratio] 17.6 mg/mg 10-20 [facility] Work Phone: [phone] Laboratory - Hematology and Cell countson 08-21-2021 Erythrocyte distribution width (RBC) [Entitic vol] 52.4 fL 35.1-43.9 [facility] Work Phone: [phone] Erythrocyte distribution width (RBC) [Ratio] 16.0 % 11.6-14.6 [facility] Work Phone: [phone] Immature granulocytes/100 WBC (Bld) 0.200 % 0.0-0.9 [facility] Work Phone: [phone] Comment on above: IG% - Immature Granu locytes (promyelocytes, myelocytes and metamyelocytes) > 1% indicates that a LEFT SHIFT is Present. MCH (RBC) [Entitic mass] 28.4 pg 27.0-32.0 [facility] Work Phone: [phone] Nucleated RBC/100 WBC (Bld) [Ratio] 0 % 0-5 [facility] Work Phone: [phone] MCHC Auto (RBC) [Mass/Vol]on 08-21-2021 MCHC (RBC) [Mass/Vol] 32.0 g/dL 32-[address] [facility] Work Phone: [phone] Mucus LM Ql (Urine sed)on Mucus Ql (Urine sed) 0 SEEN /hpf [facility] Work Phone: [phone] Nitrite Test strip Ql (U)on 08-21-2021 Nitrite Ql (U) Negative Negative [facility] Work Phone: [phone] No Panel Informationon 08-21 Estimated Creatinine Clearance Calc 62.24 ml/min [facility] Work Phone: [phone] Estimated GFR (MDRD) Amer 93 mL/min >60 [facility] Work Phone: [phone] Comment on above: GFR Calc Estimated GFR (MDRD) Non-Af Amer 76 mL/min >60 [facility] Work Phone: Comment on above: Non- GFR Calc 28.4 pg 27.0-32.0 [facility] Work Phone: [phone] 16.0 % 11.6-14.6 [facility] Work Phone: [phone] 52.4 fl 35.1-43.9 [facility] Work Phone: [phone] 0.200 % 0.0-0.9 [facility] Work Phone: [phone] 0 % 0-5 [facility] Work Phone: 76 mL/min >60 [facility] Work Phone: [phone] 93 mL/min >60 [facility] Work Phone: 62.24 ml/min [facility] Work Phone: 17.6 RATIO 10-20 [facility] Work Phone: [phone] 3.2 g/dL 2.2-4.2 [facility] Work Phone: 76 U/L 45-117 [facility] Work Phone: 16 U/L 13-56 [facility] Work Phone: 26.0 mmol/L 21.0-32.0 [facility] Work Phone: Platelets bldon 08-21-2021 Platelets (Bld) [#/Vol] 211 10*3/uL 150-450 [facility] Work Phone: Protein Test strip Ql (U)on 08-21-2021 Protein Ql (U) Negative Negative [facility] Work Phone: [phone] Serum or plasma albumin chula urement (mass/volume)on 08-21-2021 Albumin [Mass/Vol] 3.1 g/dL 3.2-5.0 [facility] Work Phone: Serum or plasma albumin/glob ulin mass ratioon 08-21-2021 Albumin/Globulin [Mass ratio] 1.0 {ratio} 0.9-2.4 [facility] Work Phone: Serum or plasma calcium chula urement (mass/volume)on 08-21-2021 Calcium [Mass/Vol] 9.9 mg/dL 8.5-10.1 [facility] Work Phone: Serum or plasma creatinine m easurement (mass/volume)on 08-21-2021 Creatinine [Mass/Vol] 0.80 mg/dL 0.55-1.[address] [facility] Work Phone: Comment on above: The validity of the calculated GFR & GFRAA in patients over 70 years has not been determined. Clinical correlation is essential. Serum or plasma urea nitroge n measurement (mass/volume)on 08-21-2021 Urea nitrogen [Mass/Vol] 14 mg/dL 7-18 [facility] Work Phone: Squamous epithelial cells de tection in urine sediment by light microscopyon 08-21-2021 Epithelial cells.squamous LM Ql (Urine sed) 5-10 SEEN /hpf 5-10 [facility] Work Phone: Thin prep Papanicolaou smear with manual screeningon 08-21-2021 Thin prep Papanicolaou smear with manual screening 13 U/L 15-37 [facility] Work Phone: Thin prep Papanicolaou smear with manual screening 5 5-15 [facility] Work Phone: Urine blood detectionon 07-27 RBC Ql (U) 10 /ul Negative [facility] Work Phone: [phone] RBC Ql (U) 0 SEEN /hpf 0-5 [facility] Work Phone: Urine clarityon 08-21-2021 Clarity (U) Sl. Cloudy Clear [facility] Work Phone: Urine color determinationon 08-21-2021 Color (U) Yellow Yellow [facility] Work Phone: [phone] Urine glucose detectionon Glucose Ql (U) Normal mg/dl Normal [facility] Work Phone: [phone] Urine leukocyte esterase det ection by dipstickon 08-21-2021 Leukocyte esterase Test strip Ql (U) 500 /ul Negative [facility] Work Phone: Urine pHon 08-21-2021 pH (U) 6.0 [pH] 5.0 - 8.0 [facility] Work Phone: Urine sediment bacteria coun t by microscopy (number/high power field)on 08-21-2021 Bacteria LM.HPF (Urine sed) [#/Area] RARE /hpf None Seen [facility] Work Phone: Urine specific gravity measu rementon 08-21-2021 Specific gravity (U) [Rel density] 1.010 1.002-1.030 [facility] Work Phone: Urobilinogen Auto test strip Ql (U)on 08-21-2021 Urobilinogen Ql (U) Normal mg/dl Normal [facility] Work Phone: Basophil percentageon 2021 Basophil percentage 289 mg/dL 74-106 [facility] Work Phone: Basophil percentage 134 mmol/L 136-145 [facility] Work Phone: Basophil percentage 5.0 mmol/L 3.5-5.1 [facility] Work Phone: Basophil percentage 103 mmol/L 98-107 [facility] Work Phone: Chloride [Moles/Vol] 103 mmol/L 98-107 [facility] Work Phone: Glucose [Mass/Vol] 289 mg/dL 74-106 [facility] Work Phone: Comment on above: Glucose result great er than or equal to 200 mg/dLsuggests DIABETES MELLITUS per A.D.A. criteria. Potassium [Moles/Vol] 5.0 mmol/L 3.5-5.[address] [facility] Work Phone: Sodium [Moles/Vol] 134 mmol/L 136-145 [facility] Work Phone: Laboratory - Chemistry and C hemistry - challengeon 07-03-2021 CO2 [Moles/Vol] 24.0 mmol/L 21.0-32.0 [facility] Work Phone: [phone] Urea nitrogen/Creatinine [Mass ratio] 21.2 mg/mg 10-20 [facility] Work Phone: [phone] Laboratory - Hematology and Cell countson 07-03-2021 HbA1c (Bld) [Mass fraction] 8.6 % [facility] Work Phone: [phone] No Panel Informationon 07-03 8.6 % [facility] Work Phone: [phone] Estimated GFR (MDRD) Amer 62 mL/min >60 [facility] Work Phone: [phone] Comment on above: GFR Calc Estimated GFR (MDRD) Non-Af Amer 51 mL/min >60 [facility] Work Phone: [phone] Comment on above: Non- GFR Calc 51 mL/min >60 [facility] Work Phone: [phone] 62 mL/min >60 [facility] Work Phone: [phone] 21.2 RATIO 02-13 [facility] Work Phone: [phone] 24.0 mmol/L 21.0-32.0 [facility] Work Phone: [phone] Serum or plasma calcium chula urement (mass/volume)on 07-03-2021 Calcium [Mass/Vol] 11.0 mg/dL 8.5-10.1 [facility] Work Phone: [phone] Serum or plasma creatinine m easurement (mass/volume)on 07-03-2021 Creatinine [Mass/Vol] 1.13 mg/dL 0.55-1.02 [facility] ster [facility] Work Phone: Comment on above: The validity of the calculated GFR & GFRAA in patients over 70 years has not been determined. Clinical correlation is essential. Serum or plasma urea nitroge n measurement (mass/volume)on 07-03-2021 Urea nitrogen [Mass/Vol] 24 mg/dL 7-18 [facility] Work Phone: Thin prep Papanicolaou smear with manual screeningon 07-03-2021 Thin prep Papanicolaou smear with manual screening 7 5-15 [facility] Work Phone: Basophil percentageon 2021 Basophil percentage 289 mg/dL 74-106 [facility] Work Phone: Basophil percentage 133 mmol/L 136-145 [facility] Work Phone: Basophil percentage 5.2 mmol/L 3.5-5.1 [facility] Work Phone: Basophil percentage 103 mmol/L 98-107 [facility] Work Phone: Chloride [Moles/Vol] 103 mmol/L 98-107 [facility] Work Phone: Glucose [Mass/Vol] 289 mg/dL 74-106 [facility] Work Phone: Comment on above: Glucose result great er than or equal to 200 mg/dLsuggests DIABETES MELLITUS per A.D.A. criteria. Potassium [Moles/Vol] 5.2 mmol/L 3.5-5.[address] [facility] Work Phone: Sodium [Moles/Vol] 133 mmol/L 136-145 [facility] Work Phone: Iron measurement (mass/mass) on 06-25-2021 Iron (Unsp spec) [Mass/Mass] 57 ug/dL 50-170 [facility] Work Phone: Laboratory - Chemistry and C hemistry - challengeon 06-25-2021 CO2 [Moles/Vol] 24.0 mmol/L 21.0-32.0 [facility] Work Phone: Cobalamin (Vitamin B12) [Mass/Vol] 272 pg/mL 211-911 [facility] Work Phone: Urea nitrogen/Creatinine [Mass ratio] 29.3 mg/mg 10-20 [facility] Work Phone: No Panel Informationon 06-25 Estimated GFR (MDRD) Amer 75 mL/min >60 [facility] Work Phone: Comment on above: GFR Calc Estimated GFR (MDRD) Non-Af Amer 62 mL/min >60 [facility] Work Phone: Comment on above: Non- GFR Calc Thyroid Stimulating Hormone (TSH) 0.52 uIU/mL 0.358-3.74 [facility] Work Phone: [phone] Total Iron Binding Capacity 501 ug/dL 250-450 [facility] Work Phone: [phone] 62 mL/min >60 [facility] Work Phone: [phone] 75 mL/min >60 [facility] Work Phone: [phone] 29.3 RATIO 10-20 [facility] Work Phone: [phone] 24.0 mmol/L 21.0-32.0 [facility] Work Phone: [phone] 0.52 uIU/mL 0.358-3.74 [facility] Work Phone: [phone] 272 pg/mL 211-911 [facility] Work Phone: [phone] 501 ug/dL 250-450 [facility] Work Phone: [phone] Serum or plasma calcium chula urement (mass/volume)on 06-25-2021 Calcium [Mass/Vol] 9.4 mg/dL 8.5-10.1 [facility] r [facility] Work Phone: [phone] Serum or plasma creatinine m easurement (mass/volume)on 06-25-2021 Creatinine [Mass/Vol] 0.96 mg/dL 0.55-1.02 [place] [facility] Work Phone: [phone] Comment on above: The validity of the calculated GFR & GFRAA in patients over 70 years has not been determined. Clinical correlation is essential. Serum or plasma ferritin sarah surement (mass/volume)on 06-25-2021 Ferritin [Mass/Vol] 12 ng/mL 8-252 [facility] Work Phone: [phone] Serum or plasma folate measu rement (mass/volume)on 06-25-2021 Folate [Mass/Vol] 6.70 ng/mL 3.1-55.4 [facility] Work Phone: Serum or plasma iron saturat ion measurement (mass fraction)on 06-25-2021 Iron saturation [Mass fraction] 11.4 % 15.0-55.0 [facility] Work Phone: Serum or plasma urea nitroge n measurement (mass/volume)on 06-25-2021 Urea nitrogen [Mass/Vol] 28 mg/dL 7-18 [facility] Work Phone: Thin prep Papanicolaou smear with manual screeningon 06-25-2021 Thin prep Papanicolaou smear with manual screening 6 5-15 [facility] Work Phone: Absolute lymphocyte counton 06-22-2021 Lymphocytes Auto (Unsp spec) [#/Vol] 1.27 10*3/uL 0.83-4.51 [facility] Work Phone: Basophil percentageon 2021 Basophil percentage 0-5 SEEN /hpf [facility] Work Phone: Basophil percentage 378 mg/dL 74-106 [facility] Work Phone: Basophil percentage 131 mmol/L 136-145 [facility] Work Phone: Basophil percentage 4.1 mmol/L 3.5-5.1 [facility] Work Phone: Basophil percentage 102 mmol/L 98-107 [facility] Work Phone: Basophils (Bld) [#/Vol] 6.0 10*3/uL 4.4-11.0 [facility] Work Phone: Basophils (Bld) [#/Vol] 3.7 10*3/uL 2.0-7.7 [facility] Work Phone: Basophils/100 WBC (Bld) 62.0 % 47-70 [facility] Work Phone: Basophils/100 WBC (Bld) 4.3 % 0-5 [facility] Work Phone: Basophils/100 WBC (Bld) 1.2 % 0-1 [facility] Work Phone: Chloride [Moles/Vol] 102 mmol/L 98-107 [facility] Work Phone: Eosinophils/100 WBC (Bld) 4.3 % 0-5 [facility] Work Phone: Glucose [Mass/Vol] 378 mg/dL 74-106 [facility] Work Phone: Comment on above: Glucose result great er than or equal to 200 mg/dLsuggests DIABETES MELLITUS per A.D.A. criteria. Neutrophils (Bld) [#/Vol] 3.7 10*3/uL 2.0-7.7 [facility] Work Phone: Neutrophils/100 WBC (Bld) 62.0 % 47-70 [facility] Work Phone: Potassium [Moles/Vol] 4.1 mmol/L 3.5-5.[address] [facility] Work Phone: Sodium [Moles/Vol] 131 mmol/L 136-145 [facility] Work Phone: WBC (Bld) [#/Vol] 6.0 10*3/uL 4.4-11.0 [facility] Work Phone: [phone] Bilirubin Test strip Ql (U)o n 06-22-2021 Bilirubin Ql (U) Negative Negative [facility] Work Phone: Blood erythrocytes count (nu mber/volume)on 06-22-2021 RBC (Bld) [#/Vol] 3.35 10*6/uL 4.2-5.4 [facility] Work Phone: Blood hemoglobin measurement (mass/volume)on 06-22-2021 Hemoglobin (Bld) [Mass/Vol] 9.8 g/dL 12.0-15.0 [facility] Work Phone: Blood lymphocytes/100 leukoc yteson 06-22-2021 Lymphocytes/100 WBC (Bld) 21.1 % 19-41 [facility] Work Phone: Blood monocytes/100 leukocyt eson 06-22-2021 Monocytes/100 WBC (Bld) 11.1 % 0-10 [facility] Work Phone: Blood platelet mean volumeon 06-22-2021 Platelet mean volume (Bld) [Entitic vol] 9.7 fL 6.2-12.0 [facility] Work Phone: Determination of erythrocyte mean corpuscular volume (MCV)on 06-22-2021 MCV (RBC) [Entitic vol] 88.7 fL 81-99 [facility] Work Phone: Hematocrit Auto (Bld) [Volum e fraction]on 06-22-2021 Hematocrit (Bld) [Volume fraction] 29.7 % 37-47 [facility] Work Phone: Ketones Test strip Ql (U)on 06-22-2021 Ketones Ql (U) Negative Negative [facility] Work Phone: Laboratory - Chemistry and C hemistry - challengeon 06-22-2021 CO2 [Moles/Vol] 24.0 mmol/L 21.0-32.0 [facility] Work Phone: Lipase [Catalytic activity/Vol] 131 U/L 73-393 [facility] Work Phone: Urea nitrogen/Creatinine [Mass ratio] 25.0 mg/mg 10-20 [facility] Work Phone: Laboratory - Hematology and Cell countson 06-22-2021 Erythrocyte distribution width (RBC) [Entitic vol] 44.5 fL 35.1-43.9 [facility] Work Phone: [phone] Erythrocyte distribution width (RBC) [Ratio] 13.7 % 11.6-14.6 [facility] Work Phone: Immature granulocytes/100 WBC (Bld) 0.300 % 0.0-0.9 [facility] Work Phone: Comment on above: IG% - Immature Granu locytes (promyelocytes, myelocytes and metamyelocytes) > 1% indicates that a LEFT SHIFT is Present. MCH (RBC) [Entitic mass] 29.3 pg 27.0-32.0 [facility] Work Phone: [phone] Nucleated RBC/100 WBC (Bld) [Ratio] 0 % 0-5 [facility] Work Phone: [phone] MCHC Auto (RBC) [Mass/Vol]on 06-22-2021 MCHC (RBC) [Mass/Vol] 33.0 g/dL 32-[address] [facility] Work Phone: [phone] Mucus LM Ql (Urine sed)on Mucus Ql (Urine sed) 0 SEEN /hpf [facility] Work Phone: [phone] Nitrite Test strip Ql (U)on 06-22-2021 Nitrite Ql (U) Negative Negative [facility] Work Phone: [phone] Panel Informationon 06-22 Troponin I High Sensitivity 9 pg/mL 3.0-54.0 [facility] Work Phone: [phone] Comment on above: Please Note: New Viviane t Units and Gender Specific Reference Ranges. For more information see Policy Stat Procedure [place] High Sensitivity Troponin (TNIH) and attachments. 9 pg/mL 3.0-54.0 [facility] Work Phone: [phone] Estimated Creatinine Clearance Calc 47.88 ml/min [facility] Work Phone: [phone] Estimated GFR (MDRD) Amer 68 mL/min >60 [facility] Work Phone: [phone] Comment on above: GFR Calc Estimated GFR (MDRD) Non-Af Amer 56 mL/min >60 [facility] Work Phone: [phone] Comment on above: Non- GFR Calc 29.3 pg 27.0-32.0 [facility] Work Phone: [phone] 13.7 % 11.6-14.6 [facility] Work Phone: [phone] 44.5 fl 35.1-43.9 [facility] Work Phone: 0.300 % 0.0-0.9 [facility] Work Phone: [phone] 0 % 0-5 [facility] Work Phone: [phone] 56 mL/min >60 [facility] Work Phone: [phone] 68 mL/min >60 [facility] Work Phone: [phone] 47.88 ml/min [facility] Work Phone: [phone] 25.0 RATIO 10-20 [facility] Work Phone: [phone] 131 U/L 73-393 [facility] Work Phone: [phone] 24.0 mmol/L 21.0-32.0 [facility] Work Phone: [phone] Platelets bldon 06-22-2021 Platelets (Bld) [#/Vol] 210 10*3/uL 150-450 [facility] Work Phone: [phone] Protein Test strip Ql (U)on 06-22-2021 Protein Ql (U) Negative Negative [facility] Work Phone: [phone] Serum or plasma calcium chula urement (mass/volume)on 06-22-2021 Calcium [Mass/Vol] 9.1 mg/dL 8.5-10.1 [facility] Work Phone: [phone] Serum or plasma creatinine m easurement (mass/volume)on 06-22-2021 Creatinine [Mass/Vol] 1.04 mg/dL 0.55-1.[address] [facility] Work Phone: [phone] Comment on above: The validity of the calculated GFR & GFRAA in patients over 70 years has not been determined. Clinical correlation is essential. Serum or plasma urea nitroge n measurement (mass/volume)on 06-22-2021 Urea nitrogen [Mass/Vol] 26 mg/dL 7-18 [facility] Work Phone: Squamous epithelial cells de tection in urine sediment by light microscopyon 06-22-2021 Epithelial cells.squamous LM Ql (Urine sed) 0-5 SEEN /hpf [facility] Work Phone: Thin prep Papanicolaou smear with manual screeningon 06-22-2021 Thin prep Papanicolaou smear with manual screening 5 5-15 [facility] Work Phone: Urine blood detectionon 05-29 RBC Ql (U) Negative Negative [facility] Work Phone: [phone] RBC Ql (U) 0 SEEN /hpf [facility] Work Phone: Urine clarityon 06-22-2021 Clarity (U) Sl. Cloudy Clear [facility] Work Phone: Urine color determinationon 06-22-2021 Color (U) Yellow Yellow [facility] Work Phone: Urine glucose detectionon Glucose Ql (U) 250 mg/dl Normal [facility] Work Phone: Urine leukocyte esterase det ection by dipstickon 06-22-2021 Leukocyte esterase Test strip Ql (U) 100 /ul Negative [facility] Work Phone: Urine pHon 06-22-2021 pH (U) 6.5 [pH] [facility] Work Phone: Urine sediment bacteria coun t by microscopy (number/high power field)on 06-22-2021 Bacteria LM.HPF (Urine sed) [#/Area] 0 /[HPF] None Seen [facility] Work Phone: Urine specific gravity measu rementon 06-22-2021 Specific gravity (U) [Rel density] 1.015 [facility] Work Phone: Urobilinogen Auto test strip Ql (U)on 06-22-2021 Urobilinogen Ql (U) Normal mg/dl Normal [facility] Work Phone: .Auto Diffon 06-15-2021 Basophil, Absolute 0.10 10 3/mcL Normal 0.00-0.19 [facility] ([place]) Comment on above: Performed By: #### C BC, ADIFF, ANEU, BMP, GFR, TROPHS #### [address] [address] Basophils/100 WBC (Bld) 1.2 % Normal 0.0-2.5 [facility] ([place]) Comment on above: Performed By: #### C BC, ADIFF, ANEU, BMP, GFR, TROPHS #### [address] [address] Eosinophil, Absolute 0.20 10 3/mcL Normal 0.00-0.40 A [facility] ([place]) Comment on above: Performed By: #### C BC, ADIFF, ANEU, BMP, GFR, TROPHS #### [address] [address] Eosinophils/100 WBC (Bld) 3.7 % Normal 0.0-7.0 [facility] ([place]) Comment on above: Performed By: #### C BC, ADIFF, ANEU, BMP, GFR, TROPHS #### [address] [address] Lymphocyte, Absolute 1.60 10 3/mcL Normal 0.77-3.85 A [facility] ([place]) Comment on above: Performed By: #### C BC, ADIFF, ANEU, BMP, GFR, TROPHS #### [address] [address] Lymphocytes/100 WBC (Bld) 25.2 % Normal 10.0-50.0 [facility] ([place]) Comment on above: Performed By: #### C BC, ADIFF, ANEU, BMP, GFR, TROPHS #### [address] [address] Monocyte, Absolute 0.70 10 3/mcL Normal 0.15-1.00 [facility] ([place]) Comment on above: Performed By: #### C BC, ADIFF, ANEU, BMP, GFR, TROPHS #### [address] [address] Monocytes/100 WBC (Bld) 10.4 % Normal 1.7-13.0 [facility] ([place]) Comment on above: Performed By: #### C BC, ADIFF, ANEU, BMP, GFR, TROPHS #### [address] [address] Neutrophils/100 WBC (Bld) 59.5 % Normal 37.0-80.0 [facility] ([place] Comment on above: Performed By: #### C BC, ADIFF, ANEU, BMP, GFR, TROPHS #### [address] [address] .GFRon 06-15-2021 GFR 65 ml/min/1.73sqm Normal [facility] ([place] Comment on above: Result Comment: GFR Population [...] BC, ADIFF, ANEU, BMP, GFR, TROPHS #### [address] [address] GFR Non- 54 ml/min/1.73sqm Normal [facility] ([place] Comment on above: Result Comment: GFR Population [...] BC, ADIFF, ANEU, BMP, GFR, TROPHS #### [address] [address] .NEUABSon 06-15-2021 Neutrophil, Absolute 3.90 10 3/mcL Normal 2.85-6.16 A [facility] ([place]) Comment on above: Performed By: #### C BC, ADIFF, ANEU, BMP, GFR, TROPHS #### [address] [address] BMPon 06-15-2021 BUN/Creatinine Ratio 29 ratio High 7-27 [facility] ([place]) Comment on above: Performed By: #### C BC, ADIFF, ANEU, BMP, GFR, TROPHS #### [address] [address] Calcium [Mass/Vol] 9.3 mg/dL Normal 8.4-10.2 [facility] ([place]) Comment on above: Performed By: #### C BC, ADIFF, ANEU, BMP, GFR, TROPHS #### [address] [address] Chloride [Moles/Vol] 104 mmol/L Normal 98-107 [facility] ([place]) Comment on above: Performed By: #### C BC, ADIFF, ANEU, BMP, GFR, TROPHS #### [address] [address] CO2 [Moles/Vol] 24 mmol/L Normal 23-31 [facility] ([place] Comment on above: Performed By: #### C BC, ADIFF, ANEU, BMP, GFR, TROPHS #### [address] [address] Creatinine [Mass/Vol] 1.03 mg/dL High 0.55-1.02 [facility] ([place]) Comment on above: Performed By: #### C BC, ADIFF, ANEU, BMP, GFR, TROPHS #### [address] [address] Electrolyte Balance 13.0 mEq/L Normal 4.0-15.0 [facility] ([place]) Comment on above: Performed By: #### C BC, ADIFF, ANEU, BMP, GFR, TROPHS #### [address] [address] Glucose [Mass/Vol] 239 mg/dL High 80-115 [facility] ([place]) Comment on above: Performed By: #### C BC, ADIFF, ANEU, BMP, GFR, TROPHS #### [address] [address] Potassium [Moles/Vol] 4.8 mmol/L Normal 3.5-5.1 [facility] ([place] Comment on above: Performed By: #### C BC, ADIFF, ANEU, BMP, GFR, TROPHS #### [address] [address] Sodium [Moles/Vol] 141 mmol/L Normal 136-145 [facility] ([place] Comment on above: Performed By: #### C BC, ADIFF, ANEU, BMP, GFR, TROPHS #### [address] [address] Urea nitrogen [Mass/Vol] 30 mg/dL High 7-18 [facility] ([place] Comment on above: Performed By: #### C BC, ADIFF, ANEU, BMP, GFR, TROPHS #### [address] [address] CBCon 06-15-2021 Erythrocyte distribution width (RBC) [Ratio] 14.7 % High 11.5-14.5 [facility] ([place] Comment on above: Performed By: #### C BC, ADIFF, ANEU, BMP, GFR, TROPHS #### [address] [address] Hematocrit (Bld) [Volume fraction] 32.7 % Low 37.0-47.0 [facility] ([place] Comment on above: Performed By: #### C BC, ADIFF, ANEU, BMP, GFR, TROPHS #### [address] [address] Hgb 10.6 G/dL Low 12.0-16.0 [facility] ([place] Comment on above: Performed By: #### C BC, ADIFF, ANEU, BMP, GFR, TROPHS #### [place] [address] MCH (RBC) [Entitic mass] 28.2 pg Normal 27.0-31.2 [facility] ([place] Comment on above: Performed By: #### C BC, ADIFF, ANEU, BMP, GFR, TROPHS #### [place] [address] MCHC 32.3 G/dL Low 33.0-37.0 [facility] ([place] Comment on above: Performed By: #### C BC, ADIFF, ANEU, BMP, GFR, TROPHS #### [place] [address] MCV (RBC) [Entitic vol] 87.2 fL Normal 80.0-94.0 [facility] ([place] Comment on above: Performed By: #### C BC, ADIFF, ANEU, BMP, GFR, TROPHS #### [place] [address] Platelet 250 10 3/mcL Normal 130-400 [facility] ([place] Comment on above: Performed By: #### C BC, ADIFF, ANEU, BMP, GFR, TROPHS #### [place] [address] Platelet mean volume (Bld) [Entitic vol] 8.0 fL Normal 7.4-10.4 [facility] ([place] Comment on above: Performed By: #### C BC, ADIFF, ANEU, BMP, GFR, TROPHS #### [place] [address] RBC 3.74 10 6/mcL Low 4.20-5.40 [facility] ([place] Comment on above: Performed By: #### C BC, ADIFF, ANEU, BMP, GFR, TROPHS #### [place] [address] WBC 6.50 10 3/mcL Normal 4.60-10.80 [facility] ([place] Comment on above: Performed By: #### C BC, ADIFF, ANEU, BMP, GFR, TROPHS #### [facility] [address], [place] [address] LABORATORYOrdered By: Hawa Yanes on 06-15-2021 Basophil, [...] I High Sensitivity 9.3 ng/L Normal 0.0-51.4 [facility] ([place]) Comment on above: Performed By: #### C BC, ADIFF, ANEU, BMP, GFR, TROPHS #### [address] [place], [place] [address] XR CHEST 1 VIEWon 06-15-2021 XR CHEST [...] 06/15/2021 8:54:53 PM Ordering Provider: VERITO Car [facility] ([place]) Absolute lymphocyte counton 05-16-2021 Lymphocytes Auto (Unsp spec) [#/Vol] 1.37 10*3/uL 0.83-4.51 [facility] Work Phone: [phone] Bacteria identified Cx Nom ( U)on 05-16-2021 Culture, urine Positive [facility] Work Phone: Basophil percentageon 2021 Basophil percentage 0-5 SEEN /hpf [facility] Work Phone: Basophil percentage 284 mg/dL 74-106 [facility] Work Phone: Basophil percentage 134 mmol/L 136-145 [facility] Work Phone: Basophil percentage 4.4 mmol/L 3.5-5.1 [facility] Work Phone: Basophil percentage 102 mmol/L 98-107 [facility] Work Phone: Basophils (Bld) [#/Vol] 6.6 10*3/uL 4.4-11.0 [facility] Work Phone: Basophils (Bld) [#/Vol] 4.3 10*3/uL 2.0-7.7 [facility] Work Phone: Basophils/100 WBC (Bld) 65.4 % 47-70 [facility] Work Phone: Basophils/100 WBC (Bld) 3.8 % 0-5 [facility] Work Phone: Basophils/100 WBC (Bld) 0.9 % 0-1 [facility] Work Phone: Bilirubin Test strip Ql (U)o n 05-16-2021 Bilirubin Ql (U) Negative Negative [facility] Work Phone: Blood erythrocytes count (nu mber/volume)on 05-16-2021 RBC (Bld) [#/Vol] 3.97 10*6/uL 4.2-5.4 [facility] Work Phone: Blood hemoglobin measurement (mass/volume)on 05-16-2021 Hemoglobin (Bld) [Mass/Vol] 11.3 g/dL 12.0-15.0 [facility] Work Phone: Blood lymphocytes/100 leukoc yteson 05-16-2021 Lymphocytes/100 WBC (Bld) 20.6 % 19-41 [facility] Work Phone: Blood monocytes/100 leukocyt eson 05-16-2021 Monocytes/100 WBC (Bld) 9.0 % 0-10 [facility] Work Phone: Blood platelet mean volumeon 05-16-2021 Platelet mean volume (Bld) [Entitic vol] 9.5 fL 6.2-12.0 [facility] Work Phone: [phone] Determination of erythrocyte mean corpuscular volume (MCV)on 05-16-2021 MCV (RBC) [Entitic vol] 92.4 fL 81-99 [facility] Work Phone: [phone] Hematocrit Auto (Bld) [Volum e fraction]on 05-16-2021 Hematocrit (Bld) [Volume fraction] 36.7 % 37-47 [facility] Work Phone: [phone] Ketones Test strip Ql (U)on 05-16-2021 Ketones Ql (U) Negative Negative [facility] Work Phone: [phone] MCHC Auto (RBC) [Mass/Vol]on 05-16-2021 MCHC (RBC) [Mass/Vol] 30.8 g/dL 32-[address] [facility] Work Phone: [phone] Mucus LM Ql (Urine sed)on Mucus Ql (Urine sed) 0 SEEN /hpf [facility] Work Phone: [phone] Nitrite Test strip Ql (U)on 05-16-2021 Nitrite Ql (U) Negative Negative [facility] Work Phone: [phone] Panel Informationon 05-16 12 pg/mL 3.0-54.0 [facility] Work Phone: [phone] 28.5 pg 27.0-32.0 [facility] Work Phone: [phone] 15.8 % 11.6-14.6 [facility] Work Phone: [phone] 53.1 fl 35.1-43.9 [facility] Work Phone: [phone] 0.300 % 0.0-0.9 [facility] Work Phone: [phone] % 0-5 [facility] Work Phone: [phone] 64 mL/min >60 [facility] Work Phone: [phone] 77 mL/min >60 [facility] Work Phone: [phone] 53.54 ml/min [facility] Work Phone: 24.7 RATIO 10-20 [facility] Work Phone: 26.0 mmol/L 21.0-32.0 [facility] Work Phone: Platelets bldon 05-16-2021 Platelets (Bld) [#/Vol] 236 10*3/uL 150-450 [facility] Work Phone: Protein Test strip Ql (U)on 05-16-2021 Protein Ql (U) 15 mg/dl Negative [facility] Work Phone: [phone] Serum or plasma calcium chula urement (mass/volume)on 05-16-2021 Calcium [Mass/Vol] 9.9 mg/dL 8.5-10.1 [facility] Work Phone: Serum or plasma creatinine m easurement (mass/volume)on 05-16-2021 Creatinine [Mass/Vol] 0.93 mg/dL 0.55-1.[address] [facility] Work Phone: Serum or plasma urea nitroge n measurement (mass/volume)on 05-16-2021 Urea nitrogen [Mass/Vol] 23 mg/dL 7-18 [facility] Work Phone: Squamous epithelial cells de tection in urine sediment by light microscopyon 05-16-2021 Epithelial cells.squamous LM Ql (Urine sed) 0-5 SEEN /hpf [facility] Work Phone: Thin prep Papanicolaou smear with manual screeningon 05-16-2021 Thin prep Papanicolaou smear with manual screening 6 5-15 [facility] Work Phone: Urine blood detectionon 04-28 RBC Ql (U) Negative Negative [facility] Work Phone: [phone] RBC Ql (U) 0 SEEN /hpf [facility] Work Phone: [phone] Urine clarityon 05-16-2021 Clarity (U) Sl. Cloudy Clear [facility] Work Phone: Urine color determinationon 05-16-2021 Color (U) Yellow Yellow [facility] Work Phone: Urine glucose detectionon Glucose Ql (U) 100 mg/dl Normal [facility] Work Phone: Urine leukocyte esterase det ection by dipstickon 05-16-2021 Leukocyte esterase Test strip Ql (U) 25 /ul Negative [facility] Work Phone: Urine pHon 05-16-2021 pH (U) 6.0 [pH] [facility] Work Phone: [phone] Urine sediment bacteria coun t by microscopy (number/high power field)on 05-16-2021 Bacteria LM.HPF (Urine sed) [#/Area] 1 /[HPF] None Seen [facility] Work Phone: Urine specific gravity measu rementon 05-16-2021 Specific gravity (U) [Rel density] 1.020 [facility] Work Phone: Urobilinogen Auto test strip Ql (U)on 05-16-2021 Urobilinogen Ql (U) Normal mg/dl Normal [facility] Work Phone: Absolute lymphocyte counton 05-11-2021 Lymphocytes Auto (Unsp spec) [#/Vol] 1.35 10*3/uL 0.83-4.51 [facility] Work Phone: Basophil percentageon 2021 Basophil percentage 219 mg/dL 74-106 [facility] Work Phone: Basophil percentage 133 mmol/L 136-145 [facility] Work Phone: Basophil percentage 5.0 mmol/L 3.5-5.1 [facility] Work Phone: Basophil percentage 103 mmol/L 98-107 [facility] Work Phone: Basophils (Bld) [#/Vol] 5.7 10*3/uL 4.4-11.0 [facility] Work Phone: Basophils (Bld) [#/Vol] 3.4 10*3/uL 2.0-7.7 [facility] Work Phone: Basophils/100 WBC (Bld) 59.7 % 47-70 [facility] Work Phone: Basophils/100 WBC (Bld) 5.3 % 0-5 [facility] Work Phone: Basophils/100 WBC (Bld) 1.2 % 0-1 [facility] Work Phone: Blood erythrocytes count (nu mber/volume)on 05-11-2021 RBC (Bld) [#/Vol] 3.69 10*6/uL 4.2-5.4 [facility] Work Phone: Blood hemoglobin measurement (mass/volume)on 05-11-2021 Hemoglobin (Bld) [Mass/Vol] 10.8 g/dL 12.0-15.0 [facility] Work Phone: Blood lymphocytes/100 leukoc yteson 05-11-2021 Lymphocytes/100 WBC (Bld) 23.6 % 19-41 [facility] Work Phone: Blood monocytes/100 leukocyt eson 05-11-2021 Monocytes/100 WBC (Bld) 10.0 % 0-10 [facility] Work Phone: Blood platelet mean volumeon 05-11-2021 Platelet mean volume (Bld) [Entitic vol] 10.9 fL 6.2-12.0 [facility] Work Phone: Determination of erythrocyte mean corpuscular volume (MCV)on 05-11-2021 MCV (RBC) [Entitic vol] 91.6 fL 81-99 [facility] Work Phone: Hematocrit Auto (Bld) [Volum e fraction]on 05-11-2021 Hematocrit (Bld) [Volume fraction] 33.8 % 37-47 [facility] Work Phone: MCHC Auto (RBC) [Mass/Vol]on 05-11-2021 MCHC (RBC) [Mass/Vol] 32.0 g/dL 32-[address] [facility] Work Phone: [phone] No Panel Informationon 05-11 29.3 pg 27.0-32.0 [facility] Work Phone: [phone] 16.2 % 11.6-14.6 [facility] Work Phone: [phone] 54.2 fl 35.1-43.9 [facility] Work Phone: [phone] 0.200 % 0.0-0.9 [facility] Work Phone: [phone] 0 % 0-5 [facility] Work Phone: [phone] 86 mL/min >60 [facility] Work Phone: [phone] mL/min >60 [facility] Work Phone: [phone] 49.80 ml/min [facility] Work Phone: [phone] 26.4 RATIO 10-20 [facility] Work Phone: [phone] 12 pg/mL 3.0-54.0 [facility] Work Phone: [phone] 26.0 mmol/L 21.0-32.0 [facility] Work Phone: [phone] Platelets bldon 05-11-2021 Platelets (Bld) [#/Vol] 198 10*3/uL 150-450 [facility] Work Phone: [phone] Serum or plasma calcium chula urement (mass/volume)on 05-11-2021 Calcium [Mass/Vol] 9.2 mg/dL 8.5-10.1 [facility] Work Phone: [phone] Serum or plasma creatinine m easurement (mass/volume)on 05-11-2021 Creatinine [Mass/Vol] 0.72 mg/dL 0.55-1.[address] [facility] Work Phone: [phone] Serum or plasma urea nitroge n measurement (mass/volume)on 05-11-2021 Urea nitrogen [Mass/Vol] 19 mg/dL 7-18 [facility] Work Phone: [phone] Thin prep Papanicolaou smear with manual screeningon 05-11-2021 Thin prep Papanicolaou smear with manual screening 4 5-15 [facility] Work Phone: Absolute lymphocyte counton 05-08-2021 Lymphocytes Auto (Unsp spec) [#/Vol] 2.07 10*3/uL 0.83-4.51 [facility] Work Phone: Amorphous sediment detection in urine sediment by light microscopyon 05-08-2021 Amorphous sediment LM Ql (Urine sed) 1+ [facility] Work Phone: Basophil percentageon 2021 Basophil percentage 257 mg/dL 74-106 [facility] Work Phone: Basophil percentage 5.6 g/dL 6.4-8.2 [facility] Work Phone: Basophil percentage 0.30 mg/dL 0.20-1.00 [facility] Work Phone: Basophil percentage 110 mg/dL <200 [facility] Work Phone: Basophil percentage 128 mg/dL [facility] Work Phone: Basophil percentage 136 mmol/L 136-145 [facility] Work Phone: Basophil percentage 3.6 mmol/L 3.5-5.1 [facility] Work Phone: Basophil percentage 105 mmol/L 98-107 [facility] Work Phone: Basophils (Bld) [#/Vol] 7.1 10*3/uL 4.4-11.0 [facility] Work Phone: Basophils (Bld) [#/Vol] 4.0 10*3/uL 2.0-7.7 [facility] Work Phone: Basophils/100 WBC (Bld) 56.7 % 47-70 [facility] Work Phone: Basophils/100 WBC (Bld) 4.2 % 0-5 [facility] Work Phone: Basophils/100 WBC (Bld) 1.0 % 0-1 [facility] Work Phone: Basophil percentage 10-25 SEEN /hpf [facility] Work Phone: Bilirubin Test strip Ql (U)o n 05-08-2021 Bilirubin Ql (U) Negative Negative [facility] Work Phone: Blood erythrocytes count (nu mber/volume)on 05-08-2021 RBC (Bld) [#/Vol] 3.74 10*6/uL 4.2-5.4 [facility] Work Phone: Blood hemoglobin measurement (mass/volume)on 05-08-2021 Hemoglobin (Bld) [Mass/Vol] 10.6 g/dL 12.0-15.0 [facility] Work Phone: Blood lymphocytes/100 leukoc yteson 05-08-2021 Lymphocytes/100 WBC (Bld) 29.1 % 19-41 [facility] Work Phone: Blood monocytes/100 leukocyt eson 05-08-2021 Monocytes/100 WBC (Bld) 8.7 % 0-10 [facility] Work Phone: Blood platelet mean volumeon 05-08-2021 Platelet mean volume (Bld) [Entitic vol] 9.6 fL 6.2-12.0 [facility] Work Phone: Determination of erythrocyte mean corpuscular volume (MCV)on 05-08-2021 MCV (RBC) [Entitic vol] 92.5 fL 81-99 [facility] Work Phone: Glucose Glucometer (BldC) [M ass/Vol]on 05-08-2021 Glucose [Mass/Vol] 263 mg/dL 70-110 [facility] Work Phone: Hematocrit Auto (Bld) [Volum e fraction]on 05-08-2021 Hematocrit (Bld) [Volume fraction] 34.6 % 37-47 [facility] Work Phone: Ketones Test strip Ql (U)on 05-08-2021 Ketones Ql (U) Negative Negative [facility] Work Phone: MCHC Auto (RBC) [Mass/Vol]on 05-08-2021 MCHC (RBC) [Mass/Vol] 30.6 g/dL 32-[address] [facility] Work Phone: Mucus LM Ql (Urine sed)on Mucus Ql (Urine sed) 0 SEEN /hpf [facility] Work Phone: Nitrite Test strip Ql (U)on 05-08-2021 Nitrite Ql (U) Negative Negative [facility] Work Phone: No Panel Informationon 05-08 109 mL/min >60 [facility] Work Phone: 132 mL/min >60 [facility] Work Phone: 49.80 ml/min [facility] Work Phone: 29.1 RATIO 10-20 [facility] Work Phone: 2.9 g/dL 2.2-4.2 [facility] Work Phone: 15 pg/mL 3.0-54.0 [facility] Work Phone: 71 U/L 45-117 [facility] Work Phone: 14 U/L 13-56 [facility] Work Phone: 25.0 mmol/L 21.0-32.0 [facility] Work Phone: 28.3 pg 27.0-32.0 [facility] Work Phone: 16.6 % 11.6-14.6 [facility] Work Phone: 56.6 fl 35.1-43.9 [facility] Work Phone: 0.300 % 0.0-0.9 [facility] Work Phone: 0 % 0-5 [facility] Work Phone: Platelets bldon 01-12-2022 Platelets (Bld) [#/Vol] 223 10*3/uL 150-450 [facility] Work Phone: Protein Test strip Ql (U)on 05-08-2021 Protein Ql (U) 15 mg/dl Negative [facility] Work Phone: [phone] Serum or plasma albumin chula urement (mass/volume)on 05-08-2021 Albumin [Mass/Vol] 2.7 g/dL 3.2-5.0 [facility] Work Phone: [phone] Serum or plasma albumin/glob ulin mass ratioon 05-08-2021 Albumin/Globulin [Mass ratio] 0.9 {ratio} 0.9-2.4 [facility] Work Phone: [phone] Serum or plasma calcium chula urement (mass/volume)on 05-08-2021 Calcium [Mass/Vol] 8.6 mg/dL 8.5-10.1 [facility] Work Phone: [phone] Serum or plasma cholesterol in HDL measurement (mass/volume)on 05-08-2021 Cholesterol in HDL [Mass/Vol] 60 mg/dL [facility] Work Phone: [phone] Serum or plasma cholesterol in VLDL measurement (mass/volume)on 05-08-2021 Cholesterol in VLDL [Mass/Vol] 26 mg/dL 5-40 [facility] Work Phone: [phone] Serum or plasma creatinine m easurement (mass/volume)on 05-08-2021 Creatinine [Mass/Vol] 0.58 mg/dL 0.55-1.[address] [facility] Work Phone: [phone] Serum or plasma low density lipoprotein (LDL) cholesterol measurement (mass/volume)on 05-08-2021 Cholesterol in LDL [Mass/Vol] 24 mg/dL 0-130 [facility] Work Phone: [phone] Serum or plasma urea nitroge n measurement (mass/volume)on 05-08-2021 Urea nitrogen [Mass/Vol] 17 mg/dL 7-18 [facility] Work Phone: [phone] Squamous epithelial cells de tection in urine sediment by light microscopyon 05-08-2021 Epithelial cells.squamous LM Ql (Urine sed) 0-5 SEEN /hpf [facility] Work Phone: Thin prep Papanicolaou smear with manual screeningon 05-08-2021 Thin prep Papanicolaou smear with manual screening 13 U/L 15-37 [facility] Work Phone: Thin prep Papanicolaou smear with manual screening 6 5-15 [facility] Work Phone: Urine blood detectionon 04-27 RBC Ql (U) Negative Negative [facility] Work Phone: RBC Ql (U) 0-5 SEEN /hpf [facility] Work Phone: Urine clarityon 05-08-2021 Clarity (U) Sl. Cloudy Clear [facility] Work Phone: Urine color determinationon 05-08-2021 Color (U) Yellow Yellow [facility] Work Phone: Urine glucose detectionon Glucose Ql (U) Normal mg/dl Normal [facility] Work Phone: Urine leukocyte esterase det ection by dipstickon 05-08-2021 Leukocyte esterase Test strip Ql (U) 100 /ul Negative [facility] Work Phone: Urine pHon 05-08-2021 pH (U) 7.0 [pH] [facility] Work Phone: Urine sediment bacteria coun t by microscopy (number/high power field)on 05-08-2021 Bacteria LM.HPF (Urine sed) [#/Area] 3 /[HPF] None Seen [facility] Work Phone: Urine specific gravity measu rementon 05-08-2021 Specific gravity (U) [Rel density] 1.010 [facility] Work Phone: Urobilinogen Auto test strip Ql (U)on 05-08-2021 Urobilinogen Ql (U) Normal mg/dl Normal [facility] Work Phone: [phone] Direct bilirubinon 2 Bilirubin.direct [Mass/Vol] 0.07 mg/dL 0.00-0.30 [facility] Work Phone: No Panel Informationon 05-07 104 U/L 73-393 [facility] Work Phone: 1.8 mg/dL 1.6-2.6 [facility] Work Phone: Absolute lymphocyte counton 04-19-2021 Lymphocytes Auto (Unsp spec) [#/Vol] 1.78 10*3/uL 0.83-4.51 [facility] Work Phone: Basophil percentageon 2020 Basophil percentage 0-5 SEEN /hpf [facility] Work Phone: Basophil percentage 205 mg/dL 74-106 [facility] Work Phone: Basophil percentage 132 mmol/L 136-145 [facility] Work Phone: Basophil percentage 5.1 mmol/L 3.5-5.1 [facility] Work Phone: Basophil percentage 103 mmol/L 98-107 [facility] Work Phone: Basophils (Bld) [#/Vol] 9.6 10*3/uL 4.4-11.0 [facility] Work Phone: Basophils (Bld) [#/Vol] 6.2 10*3/uL 2.0-7.7 [facility] Work Phone: Basophils/100 WBC (Bld) 6.0 % 0-5 [facility] Work Phone: Bilirubin Test strip Ql (U)o n 04-19-2021 Bilirubin Ql (U) Negative Negative [facility] Work Phone: Blood erythrocytes count (nu mber/volume)on 04-19-2021 RBC (Bld) [#/Vol] 4.41 10*6/uL 4.2-5.4 [facility] Work Phone: Blood hemoglobin measurement (mass/volume)on 04-19-2021 Hemoglobin (Bld) [Mass/Vol] 12.5 g/dL 12.0-15.0 [facility] Work Phone: Blood lymphocytes/100 leukoc yteson 04-19-2021 Lymphocytes/100 WBC (Bld) 18.6 % 19-41 [facility] Work Phone: Blood monocytes/100 leukocyt eson 04-19-2021 Monocytes/100 WBC (Bld) 9.0 % 0-10 [facility] Work Phone: Blood platelet mean volumeon 04-19-2021 Platelet mean volume (Bld) [Entitic vol] 10.0 fL 6.2-12.0 [facility] Work Phone: Determination of erythrocyte mean corpuscular volume (MCV)on 04-19-2021 MCV (RBC) [Entitic vol] 89.1 fL 81-99 [facility] Work Phone: Hematocrit Auto (Bld) [Volum e fraction]on 04-19-2021 Hematocrit (Bld) [Volume fraction] 39.3 % 37-47 [facility] Work Phone: Ketones Test strip Ql (U)on 04-19-2021 Ketones Ql (U) Negative Negative [facility] Work Phone: Laboratory - Hematology and Cell countson 04-19-2021 Basophils/100 WBC (Unsp spec) 1.3 % 0-1 [facility] Work Phone: MCHC Auto (RBC) [Mass/Vol]on 04-19-2021 MCHC (RBC) [Mass/Vol] 31.8 g/dL 32-[address] [facility] Work Phone: Mucus LM Ql (Urine sed)on Mucus Ql (Urine sed) 0 SEEN /hpf [facility] Work Phone: Nitrite Test strip Ql (U)on 04-19-2021 Nitrite Ql (U) Negative Negative [facility] Work Phone: No Panel Informationon 04-19 55 mL/min >60 [facility] Work Phone: [phone] 67 mL/min >60 [facility] Work Phone: [phone] 45.08 ml/min [facility] Work Phone: [phone] 19.8 RATIO 10-20 [facility] Work Phone: [phone] 10 pg/mL 3.0-54.0 [facility] Work Phone: [phone] 25.0 mmol/L 21.0-32.0 [facility] Work Phone: [phone] 28.3 pg 27.0-32.0 [facility] Work Phone: [phone] 17.4 % 11.6-14.6 [facility] Work Phone: [phone] 57.1 fl 35.1-43.9 [facility] Work Phone: [phone] 64.6 % 47-70 [facility] Work Phone: [phone] 0.500 % 0.0-0.9 [facility] Work Phone: [phone] 0 % 0-5 [facility] Work Phone: [phone] Platelets bldon 04-19-2021 Platelets (Bld) [#/Vol] 274 10*3/uL 150-450 [facility] Work Phone: [phone] Protein Test strip Ql (U)on 04-19-2021 Protein Ql (U) 15 mg/dl Negative [facility] Work Phone: [phone] Serum or plasma calcium chula urement (mass/volume)on 04-19-2021 Calcium [Mass/Vol] 10.0 mg/dL 8.5-10.1 [facility] Work Phone: [phone] Serum or plasma creatinine m easurement (mass/volume)on 04-19-2021 Creatinine [Mass/Vol] 1.06 mg/dL 0.55-1.02 [place] [facility] Work Phone: [phone] Serum or plasma urea nitroge n measurement (mass/volume)on 04-19-2021 Urea nitrogen [Mass/Vol] 21 mg/dL 7-18 [facility] Work Phone: Squamous epithelial cells de tection in urine sediment by light microscopyon 04-19-2021 Epithelial cells.squamous LM Ql (Urine sed) 0-5 SEEN /hpf [facility] Work Phone: Thin prep Papanicolaou smear with manual screeningon 04-19-2021 Thin prep Papanicolaou smear with manual screening 4 5-15 [facility] Work Phone: Urine blood detectionon - RBC Ql (U) Negative Negative [facility] Work Phone: RBC Ql (U) 0 SEEN /hpf [facility] Work Phone: Urine clarityon 04-19-2021 Clarity (U) Clear Clear [facility] Work Phone: Urine color determinationon 04-19-2021 Color (U) Yellow Yellow [facility] Work Phone: Urine glucose detectionon Glucose Ql (U) Normal mg/dl Normal [facility] Work Phone: Urine leukocyte esterase det ection by dipstickon 04-19-2021 Leukocyte esterase Test strip Ql (U) 100 /ul Negative [facility] Work Phone: Urine pHon 04-19-2021 pH (U) 5.0 [pH] [facility] Work Phone: Urine sediment bacteria coun t by microscopy (number/high power field)on 04-19-2021 Bacteria LM.HPF (Urine sed) [#/Area] 0 /[HPF] None Seen [facility] Work Phone: Urine specific gravity measu rementon 04-19-2021 Specific gravity (U) [Rel density] 1.015 [facility] Work Phone: Urobilinogen Auto test strip Ql (U)on 04-19-2021 Urobilinogen Ql (U) Normal mg/dl Normal [facility] Work Phone: ANKLE COMPLETE LTon 01-31-20 20 ANKLE COMPLETE LT [address] [place], [place] [address] Patient: ELO GRAY Phone#: : [phone] Age: 64 Gender: F Pt. Type: Out Account: [id number] Location: Ordering: CHRISTA CASTANEDA Exam Date: 01/31/2020/10:51 Family Phys: Charge Code: [id number] Physician: [place] Order #: [id number] DLP Dose#: PROCEDURE: X-RAY ANKLE COMPLETE LT [...] Murry MD on 01/31/2020 at 12:22 Normal [facility] EMERGENCY DEPARTMENT REPORTo n 06-04-2018 EMERGENC[place] [address] HEALTH INFORMATION MANAGEMENT EMERGENCY DEPARTMENT REPORT Patient: ELO GRAYTJ M.D. [id number] F Status: DEP ER ED Date of Service: 06/02/18 CHIEF COMPLAINT Reported to be needing medical evaluation. HISTORY OF PRESENT ILLNESS The patient is a 62-year-old white female who presents from [facility] psychiatric facility. The patient just had a recent admission to [facility] for hypothermia, urosepsis. She was discharged from their facility at approximately 1:30 in the morning and was transported to [facility] for inpatient psychiatric treatment for suicidal ideation. Their doctor, upon seeing the patient this morning, reviewed the labs from her admission at [facility] and apparently felt that she needed to [...] labs, as well as discharge medications from [facility] via the [employer] system. BUN and creatinine were normalized, as [...] she is appropriate for discharge back to [facility]. IMPRESSION 1. Suicidal ideation. 2. Urinary tract infection. PLAN Discharge. 06/14/18 0630 TJ MEDRANO M.D. cc: TJ MEDRANO M.D. << Signature on File>> Reported By: TJ MEDRANO M.D. Signed By: TJ MEDRANO M.D. Tests performed at: [address] [address] [facility] URINE CULTUREon 01-22-2018 Bacteria identified Cx Nom (U) Specimen source XXX: CLEAN VOIDED MIDSTREAM Performed at [address] [address] XXX-Imp: NONE Performed at [address] [address]RT Number Ur: >100,000 CFU/mLBacteria identified: ESCHERICHIA COLI ESCHERICHIA COLI 2ND TYPE 51,000-100,000 CFU/mL Performed at [address] [address]: FINAL 01/22/2018 ANTIBIOTIC ANTONIA/INTERPORGANISM: 1 ESCHERICHIA COLI [...] SUSCEPTIBLE PIPERACILLIN/TAZOBACTAM <=16 SUSCEPTIBLE MEROPENEM <=4 SUSCEPTIBLE Normal [facility] Comment on above: Performed By: #### P TB ####[facility] LaboratoryLake Qvve[address] [place] [address] POCT GLUCOSEon 01-21-2018 Glucose mass conc 189 mg/dL High 65-99 [facility] Comment on above: Performed By: #### C FACILITIES ENGINEER ####[facility] LaboratoryLake Ysul[address] [place] [address] Glucose mass conc 277 mg/dL High 65-99 [facility] Comment on above: Performed By: #### C FACILITIES ENGINEER ####[facility] LaboratoryLake Smwk18468 [place] [address] Glucose mass conc 104 mg/dL High 65-99 [facility] Comment on above: Performed By: #### C FACILITIES ENGINEER ####[facility] LaboratoryLake Dfbe[address]42 [place] [address] Glucose mass conc 150 mg/dL High 65-99 [facility] Comment on above: Performed By: #### P TB ####[facility] LaboratoryNhke Dsyy[address] [place] [address] CBC with Diffon 01-20-2018 AB IMMATURE NEUT 0.04 K/UL Normal 0.0-0.1 [facility] Comment on above: Performed By: #### C BCD ####[facility] LaboratoryLake Nocf[address] [place] [address] ABS BASO 0.11 K/UL Normal 0.00-0.22 [facility] Comment on above: Performed By: #### C BCD ####[facility] LaboratoryLake Gmtz[address] [place] [address] ABS EOS 0.40 K/UL Normal 0-0.45 [facility] Comment on above: Performed By: #### C BCD ####[facility] LaboratoryLake Lbwp[address] [place] [address] ABS NEUTROPHILS 5.64 K/UL Normal 1.8-7.7 [facility] Comment on above: Performed By: #### C BCD ####[facility] LaboratoryLake Itcs[address] [place] [address] ABS.NEUT.CALCULATED Normal [facility] Comment on above: Result Comment: 5.64 Performed at [facility] [address] [place] [address] Performed By: #### C BCD ####[place] [address] [place] [address] Basophils/100 WBC Auto (Bld) 1.30 % High 0-1 [facility] Comment on above: Performed By: #### C BCD ####[place] [address] [place] [address] DIFF TYPE AUTO DIFF Normal [facility] Comment on above: Performed By: #### C BCD ####[place] [address] [place] [address] Eosinophils/100 WBC Auto (Bld) 4.60 % High 0-3 [facility] Comment on above: Performed By: #### C BCD ####[place] [address] [place] [address] Erythrocyte distribution width Auto Ratio (RBC) 15.4 % High 11.7-15.0 [facility] Comment on above: Performed By: #### C BCD ####[place] [address] [place] [address] Hematocrit Auto Volume Fraction (Bld) 36.4 % Normal 36-44 [facility] Comment on above: Performed By: #### C BCD ####[place] [address] [place] [address] Hemoglobin mass conc (Bld) 11.3 g/dL Low 12.0-15.0 [facility] Comment on above: Performed By: #### C BCD ####[place] [address] [place] [address] IMMATURE NEUT % 0.50 % Normal 0.0-1.0 [facility] Comment on above: Performed By: #### C BCD ####[place] [id number] [place] [address] Lymphocytes Auto #/vol (Bld) 1.44 10*3/uL Normal 1.2-3.2 [facility] Comment on above: Performed By: #### C BCD ####Main LaboratoryLake Rhso[address] [place] [address] Lymphocytes/100 WBC Auto (Bld) 16.50 % Low 20-40 [facility] Comment on above: Performed By: #### C BCD ####[facility] LaboratoryNhke Gcgz[address] [place] [address] MCH Auto Entitic mass (RBC) 27.0 pg Normal 26-34 [facility] Comment on above: Performed By: #### C BCD ####[facility] LaboratoryNhke Onra[address] [place] [address] MCHC Auto mass conc (RBC) 31.0 % Normal 31-37 [facility] Comment on above: Performed By: #### C BCD ####[facility] LaboratorySuzanne V[place] [id number] [place] [address] MCV Auto Entitic volume (RBC) 86.9 fL Normal 80-100 [facility] Comment on above: Performed By: #### C BCD ####[place] [address] [place] [address] MEAN PLT VOL 10.0 CU Normal 7.0-12.6 [facility] Comment on above: Performed By: #### C BCD ####[facility] LaboratorySuzanne V[place] [id number] [place] [address] Monocytes Auto #/vol (Bld) 1.09 10*3/uL High 0-0.8 [facility] Comment on above: Performed By: #### C BCD ####[facility] LaboratorySuzanne V[place] [id number] [place] [address] Monocytes/100 WBC Auto (Bld) 12.50 % High 0-8 [facility] Comment on above: Performed By: #### C BCD ####[facility] LaboratoryNhke Rhyc[address] [place] [address] Neutrophils/100 WBC Auto (Bld) 64.60 % Normal 50-70 [facility] Comment on above: Performed By: #### C BCD ####[facility] LaboratoryNhke Blik[address] [place] [address] NRBC'S 0 /100 WBC Normal 0 [facility] Comment on above: Performed By: #### C BCD ####[facility] Kuhp[address] [place] [address] Platelets Auto #/vol (Bld) 236 10*3/uL Normal 150-450 [facility] Comment on above: Performed By: #### C BCD ####[facility] Trfa[address] [place] [address] RBC Auto #/vol (Bld) 4.19 M/UL Normal 4.0-4.9 [facility] Comment on above: Performed By: #### C BCD ####[facility] Eocs[address] [place] [address] RDW-SD 48.9 FL Normal 37.0-54.0 [facility] Comment on above: Performed By: #### C BCD ####[facility] Zllu[address]365 [place] [address] WBC Auto #/vol (Bld) 8.7 10*3/uL Normal 4.5-11.0 [facility] Comment on above: Performed By: #### C BCD ####[facility] Skdx[address] [place] [address] COMPREHENSIVE METABOLIC PANE Amarjit 01-20-2018 Albumin mass conc 3.4 g/dL Low 3.5-5.0 [facility] Comment on above: Performed By: #### C FACILITIES ENGINEER ####[facility] Tuea[address] [place] [address] Albumin/Globulin mass ratio 1.4 {ratio} Low 1.5-3.0 [facility] Comment on above: Performed By: #### C FACILITIES ENGINEER ####[facility] LaboratoryNhbob Ayge[address] [place] [address] ALP enzyme act/vol 131 U/L High 35-125 [facility] Comment on above: Performed By: #### C FACILITIES ENGINEER ####[facility] LaboratoryLake Rpnu[address] [place] [address] ALT enzyme act/vol 18 U/L Normal 5-40 [facility] Comment on above: Performed By: #### C FACILITIES ENGINEER ####[facility] LaboratoryNhke Gbsw[address] [place] [address] Anion gap 3 molar conc 13 mmol/L Normal 0-19 [facility] Comment on above: Performed By: #### C FACILITIES ENGINEER ####[facility] LaboratoryLake Imqg[address] [place] [address] AST enzyme act/vol 15 U/L Normal 5-40 [facility] Comment on above: Performed By: #### C FACILITIES ENGINEER ####[facility] LaboratoryLake Ixbs[address] [place] [address] Bilirubin mass conc Normal 0.1-1.2 [facility] Comment on above: Result Comment: 0.2L ESS THAN Performed By: #### C FACILITIES ENGINEER ####[facility] LaboratoryNhke Lscp[address] [place] [address] Calcium mass conc 9.6 mg/dL Normal 8.5-10.4 [facility] Comment on above: Performed By: #### C FACILITIES ENGINEER ####[facility] LaboratoryNhke Azsz[address] [place] [address] Chloride molar conc 99 mmol/L Normal 97-107 [facility] Comment on above: Performed By: #### C FACILITIES ENGINEER ####[facility] LaboratoryNhDatanyze Dxov[address] [place] [address] CO2 molar conc 22 mmol/L Low 24-31 [facility] Comment on above: Performed By: #### C FACILITIES ENGINEER ####[facility] LaboratoryNhke Ldrr[address] [place] [address] Creatinine mass conc 1.0 mg/dL Normal 0.4-1.6 [facility] Comment on above: Performed By: #### C FACILITIES ENGINEER ####[facility] LaboratoryNhDatanyze Nylz[address] [place] [address] GFR/1.73 sq M.predicted MDRD vol rate/area Normal [facility] Comment on above: Result Comment: 60GF R ml/min/1.73m2 Stage -----90 160-89 230-59 315-29 4<15 5For -Americans, multiply EGFR result by 1.210Calculation not validated for patients under 18 years of age.Performed at [facility] [address] [place] [address] Performed By: #### C FACILITIES ENGINEER ####[facility] LaboratoryLake Mxrl[address]326 [place] [address] Globulin Calculated mass conc (S) 2.4 g/dL Normal 1.9-3.7 [facility] Comment on above: Performed By: #### C FACILITIES ENGINEER ####[facility] LaboratoryLake Pzxp[address]15 [place] [address] Glucose mass conc 124 mg/dL High 65-99 [facility] Comment on above: Performed By: #### C FACILITIES ENGINEER ####[facility] LaboratoryLake Fafi[address] [place] [address] Potassium molar conc 4.1 mmol/L Normal 3.4-5.1 [facility] Comment on above: Performed By: #### C FACILITIES ENGINEER ####[facility] LaboratoryLake Fjrh[address] [place] [address] Protein mass conc 5.8 g/dL Low 5.9-7.9 [facility] Comment on above: Performed By: #### C FACILITIES ENGINEER ####[facility] LaboratoryLake Tagz[address] [place] [address] Sodium molar conc 134 mmol/L Normal 133-145 [facility] Comment on above: Performed By: #### C FACILITIES ENGINEER ####[facility] LaboratoryLake Uqml[address] [place] [address] Urea nitrogen mass conc 34 mg/dL High 8-25 [facility] Comment on above: Performed By: #### C FACILITIES ENGINEER ####[facility] LaboratoryLake Uagi[address] [place] [address] Urea nitrogen/Creatinine mass ratio 34.0 RATIO High 8-21 [facility] Comment on above: Performed By: #### C FACILITIES ENGINEER ####[facility] LaboratoryLake Zlga[address] [place] [address] HEMOGLOBIN A1con 01-20-2018 Hemoglobin A1c/Hemoglobin.total mass fraction (Bld) High 4.0-6.0 [facility] Comment on above: Result Comment: 6.9H [...] ............................... 210 mg/dl10% ............................... 240 mg/dlPerformed at [address] [address] Performed By: #### P TB ####Main [address] [address] LIPID PANELon 01-20-2018 CHOL HDL RATIO Normal [facility] Comment on above: Result Comment: 1.9A ccording to the [place] [employer], the goal is to maintainthe total cholesterol/HDL ratio at 5-to-1 or lower with an optimumratio of 3.5-to-1.Performed at [address] [address] Performed By: #### P TB ####Main [address] [address] Cholesterol in HDL mass conc Normal >50 [facility] Comment on above: Result Comment: 60Na tional Cholesterol Education Program(NCFP)guidelines:<40 mg/dl:Low HDL-cholesterol(major risk factor for CHD)>60 mg/dl:High HDL-cholesterol(negativerisk factor for CHD)HDL-cholesterol is affected by a number of factors,e.g.,smoking,exercise,hormones,sex and age. Performed By: #### P TB ####Main LaboratoryLake Zjiq[address] [place] [address] Cholesterol in LDL mass conc 35 mg/dL Low 65-130 [facility] Comment on above: Performed By: #### P TB ####Main LaboratoryLake Ltal[address] [place] [address] Cholesterol mass conc 113 mg/dL Low 133-200 [facility] Comment on above: Performed By: #### P TB ####[facility] LaboratoryLake Mvtf[address]275 [place] [address] SERUM CLARITY CLEAR [facility] Comment on above: Performed By: #### P TB ####[facility] LaboratoryLake Hjwc[address] [place] [address] TRIGLYCERIDE G.B. 90 MG/DL Normal 40-150 [facility] Comment on above: Performed By: #### P TB ####[facility] LaboratoryLake Qyoj[address] [place] [address] PT. PREPARATION FASTING [facility] Comment on above: Performed By: #### P TB ####[facility] LaboratoryLake Vtbb[address] [place] [address] SERUM COLOR YELLOW [facility] Comment on above: Performed By: #### P TB ####[facility] LaboratoryLake Ulya[address] [place] [address] POCT GLUCOSEon 01-20-2018 Glucose mass conc 153 mg/dL High 65-99 [facility] Comment on above: Performed By: #### P TB ####Main LaboratoryLake Ejtd[address] [place] [address] Glucose mass conc 243 mg/dL High 65-99 [facility] Comment on above: Performed By: #### P TB ####[facility] LaboratoryLake Uiaw[address] [place] [address] Glucose mass conc 118 mg/dL High 65-99 [facility] Comment on above: Performed By: #### P TB ####[address] [address] Glucose mass conc 238 mg/dL High 65-99 [facility] Comment on above: Performed By: #### P CGL ####[address] [address] TROPONIN Ton 01-20-2018 Troponin T.cardiac mass conc Normal 0.0-0.1 [facility] Comment on above: Result Comment: 0.01 LESS THANPerformed at [address] [address] Performed By: #### P TB ####[address] [address] Troponin T.cardiac mass conc Normal 0.0-0.1 [facility] Comment on above: Result Comment: 0.01 LESS THANPerformed at [address] [address] Performed By: #### T ROP ####[address] [address] TSHon 01-20-2018 Thyrotropin Qn Normal 0.27-4.20 [facility] Comment on above: Result Comment: 2.54 Performed at [address] [address] Performed By: #### P TB ####[address] [address] CBC with Diffon 01-19-2018 AB IMMATURE NEUT 0.04 K/UL Normal 0.0-0.1 [facility] Comment on above: Performed By: #### C BCD ####[address] [address] ABS BASO 0.11 K/UL Normal 0.00-0.22 [facility] Comment on above: Performed By: #### C BCD ####[address] [address] ABS EOS 0.40 K/UL Normal 0-0.45 [facility] Comment on above: Performed By: #### C BCD ####[address] [address] ABS NEUTROPHILS 4.50 K/UL Normal 1.8-7.7 [facility] Comment on above: Performed By: #### C BCD ####[facility] LaboratoryNhke Cnax[address] [place] [address] ABS.NEUT.CALCULATED Normal [facility] Comment on above: Result Comment: 4.50 Performed at [facility] [address] [place] [address] Performed By: #### C BCD ####[facility] LaboratoryNhke Dtdm[address] [place] [address] Basophils/100 WBC Auto (Bld) 1.50 % High 0-1 [facility] Comment on above: Performed By: #### C BCD ####[facility] LaboratoryNhke Cifk[address] [place] [address] DIFF TYPE AUTO DIFF Normal [facility] Comment on above: Performed By: #### C BCD ####[facility] LaboratoryAnita Ville [address] [place] [address] Eosinophils/100 WBC Auto (Bld) 5.40 % High 0-3 [facility] Comment on above: Performed By: #### C BCD ####[facility] LaboratoryNhke Azso[address] [place] [address] Erythrocyte distribution width Auto Ratio (RBC) 15.4 % High 11.7-15.0 [facility] Comment on above: Performed By: #### C BCD ####[facility] LaboratoryNhke Dsuv[address] [place] [address] Hematocrit Auto Volume Fraction (Bld) 38.5 % Normal 36-44 [facility] Comment on above: Performed By: #### C BCD ####[facility] LaboratoryNhke Ktdq[address] [place] [address] Hemoglobin mass conc (Bld) 12.0 g/dL Normal 12.0-15.0 [facility] Comment on above: Performed By: #### C BCD ####[facility] LaboratoryLake Zzwz[address] [place] [address] IMMATURE NEUT % 0.50 % Normal 0.0-1.0 [facility] Comment on above: Performed By: #### C BCD ####[facility] [place] [id number] [place] [address] Lymphocytes Auto #/vol (Bld) 1.45 10*3/uL Normal 1.2-3.2 [facility] Comment on above: Performed By: #### C BCD ####[facility] Piio30985Magnus [place] [address] Lymphocytes/100 WBC Auto (Bld) 19.50 % Low 20-40 [facility] Comment on above: Performed By: #### C BCD ####[place] [address] [address] MCH Auto Entitic mass (RBC) 27.1 pg Normal 26-34 [facility] Comment on above: Performed By: #### C BCD ####[facility] Temw[address]ne[address] [place] [address] MCHC Auto mass conc (RBC) 31.2 % Normal 31-37 [facility] Comment on above: Performed By: #### C BCD ####[place] [address] [place] [address] MCV Auto Entitic volume (RBC) 86.9 fL Normal 80-100 [facility] Comment on above: Performed By: #### C BCD ####[facility] Knbr76004Magnus [place] [address] MEAN PLT VOL 9.8 CU Normal 7.0-12.6 [facility] Comment on above: Performed By: #### C BCD ####[place] [address] Mcwilliamsl[place] [address] Monocytes Auto #/vol (Bld) 0.94 10*3/uL High 0-0.8 [facility] Comment on above: Performed By: #### C BCD ####[facility] Becw[address] AvJess[place] [address] Monocytes/100 WBC Auto (Bld) 12.60 % High 0-8 [facility] Comment on above: Performed By: #### C BCD ####[place] [id number] AvJessme[place] [address] Neutrophils/100 WBC Auto (Bld) 60.50 % Normal 50-70 [facility] Comment on above: Performed By: #### C BCD ####[place] Uewf[address] [place] [address] NRBC'S 0 /100 WBC Normal 0 [facility] Comment on above: Performed By: #### C BCD ####[place] Dwsw[address] [place] [address] Platelets Auto #/vol (Bld) 260 10*3/uL Normal 150-450 [facility] Comment on above: Performed By: #### C BCD ####[place] Hayb[address] [place] [address] RBC Auto #/vol (Bld) 4.43 M/UL Normal 4.0-4.9 [facility] Comment on above: Performed By: #### C BCD ####[place] [address] [place] [address] RDW-SD 49.1 FL Normal 37.0-54.0 [facility] Comment on above: Performed By: #### C BCD ####[place] JohnNhbob Pf[address] [place] [address] WBC Auto #/vol (Bld) 7.4 10*3/uL Normal 4.5-11.0 [facility] Comment on above: Performed By: #### C BCD ####[facility] [address] [place] [address] CHEST PORTABLEon 01-19-2018 CHEST PORTABLE *FINAL Date of Service: 01/19/2018 16:41 Adm #: [id number] Dr:AUBREE COOPER Signoff Dr: AUBREE COOPERPROCEDURE: CHEST [...] Interpreting Physician: AUBREE COOPER M.D.Original Transcribed [facility] Jan [facility] 2018 4:54POriginal Electronically Signed by/Date: AUBREE COOPER M.D. Jan 19 2018 4:54P Addendum Interpreting Physician: Addendum Transcribed by/Date: NO ADDENDUMAddendum Electronically Signed by/Date: Normal [facility] COMPREHENSIVE METABOLIC PANE Amarjit 01-19-2018 Albumin mass conc 3.7 g/dL Normal 3.5-5.0 [facility] Comment on above: Performed By: #### C FACILITIES ENGINEER ####Main LaboratoryLake Xwsg[address] [place] [address] Albumin/Globulin mass ratio 1.5 {ratio} Normal 1.5-3.0 [facility] Comment on above: Performed By: #### C FACILITIES ENGINEER ####Main LaboratoryLake Rchx[address] [place] [address] ALP enzyme act/vol 159 U/L High 35-125 [facility] Comment on above: Performed By: #### C FACILITIES ENGINEER ####Main LaboratoryLake Hqmg[address] [place] [address] ALT enzyme act/vol 22 U/L Normal 5-40 [facility] Comment on above: Performed By: #### C FACILITIES ENGINEER ####Main LaboratoryLake Mwvl[address] [place] [address] Anion gap 3 molar conc 14 mmol/L Normal 0-19 [facility] Comment on above: Performed By: #### C FACILITIES ENGINEER ####Main LaboratoryLake Zqvs[address] [place] [address] AST enzyme act/vol 21 U/L Normal 5-40 [facility] Comment on above: Performed By: #### C FACILITIES ENGINEER ####Main LaboratoryLake Aaag[address] [place] [address] Bilirubin mass conc Normal 0.1-1.2 [facility] Comment on above: Result Comment: 0.2L ESS THAN Performed By: #### C FACILITIES ENGINEER ####Main LaboratoryLake Vecw[address] [place] [address] Calcium mass conc 9.9 mg/dL Normal 8.5-10.4 [facility] Comment on above: Performed By: #### C FACILITIES ENGINEER ####[facility] LaboratoryNhke Ftix[address] [place] [address] Chloride molar conc 97 mmol/L Normal 97-107 [facility] Comment on above: Performed By: #### C FACILITIES ENGINEER ####[facility] LaboratoryTur[facility] Center[address] [place] [address] CO2 molar conc 25 mmol/L Normal 24-31 [facility] Comment on above: Performed By: #### C FACILITIES ENGINEER ####[facility] LaboratoryNhke Syrs[address] [place] [address] Creatinine mass conc 1.1 mg/dL Normal 0.4-1.6 [facility] Comment on above: Performed By: #### C FACILITIES ENGINEER ####[facility] [place] [address] GFR/1.73 sq M.predicted MDRD vol rate/area Normal [facility] Comment on above: Result Comment: 53GF R ml/min/1.73m2 Stage -----90 160-89 230-59 315-29 4<15 5For -Americans, multiply EGFR result by 1.210Calculation not validated for patients under 18 years of age.Performed at [facility] [id number] [place] [address] [place] [address] Performed By: #### C FACILITIES ENGINEER ####[facility] LaboratoryAnita Ville [address] [address] Globulin Calculated mass conc (S) 2.5 g/dL Normal 1.9-3.7 [facility] Comment on above: Performed By: #### C FACILITIES ENGINEER ####[facility] LaboratoryNhke Ydht[address] [place] [address] Glucose mass conc 163 mg/dL High 65-99 [facility] Comment on above: Performed By: #### C FACILITIES ENGINEER ####[facility] LaboratoryNhke Xozc[address] [place] [address] Potassium molar conc 4.1 mmol/L Normal 3.4-5.1 [facility] Comment on above: Performed By: #### C FACILITIES ENGINEER ####[facility] Ydzh[address] [place] [address] Protein mass conc 6.2 g/dL Normal 5.9-7.9 [facility] Comment on above: Performed By: #### C FACILITIES ENGINEER ####[facility] JohnNhbob Dqnz[address] [place] [address] Sodium molar conc 136 mmol/L Normal 133-145 [facility] Comment on above: Performed By: #### C FACILITIES ENGINEER ####[facility] [id number] [place] [address] Urea nitrogen mass conc 28 mg/dL High 8-25 [facility] Comment on above: Performed By: #### C FACILITIES ENGINEER ####[facility] [address] [place] [address] Urea nitrogen/Creatinine mass ratio 25.5 RATIO [facility] 8-21 [facility] Comment on above: Performed By: #### C FACILITIES ENGINEER ####[place] [address] [place] [address] Consulton 01-19-2018 Consult Normal [facility] History and Physicalon 01-19 History and Physical Normal [facility] PROTHROMBIN TIMEon 8 ANTICOAGULANT INFORMATION NOT REPO RTED TO LABORATORY Normal [facility] Comment on above: Performed By: #### P TB ####[facility] [place] [address] [place] [address] INR Coag RelTime (PPP) Normal 0.86-1.16 [facility] Comment on above: Result Comment: 0.9I NR Theraputic Range: 2.0-3.5Performed at [facility] [id number] [place] [address] [place] [address] Performed By: #### P TB ####[facility] [place] [address] [place] [address] Prothrombin time (PT) Coag time (PPP) 9.7 s Normal 9.3-12.7 [facility] Comment on above: Performed By: #### P TB ####[facility] [place] [address] [place] [address] TROPONIN Ton 01-19-2018 Troponin T.cardiac mass conc Normal 0.0-0.1 [facility] Comment on above: Result Comment: 0.01 LESS THANPerformed at [place] [address] [place] [address] Performed By: #### T ROP ####[facility] Yhrk[address] [place] [address] UA-REFLEX TO CULTUREon 01-19 BACT [facility] Comment on above: Result Comment: PRES ENTPerformed at [place] [address] [address] Performed By: #### U ACUL ####[facility] Mnko[address] [place] [address] Bacteria identified Cx Nom (U) CULTURE BEING ORDERED BASED ON LEUKOCYTE ESTERASE [facility] Comment on above: Performed By: #### U ACUL ####[facility] Awrz[address] [place] [address] BILI Negative [facility] Comment on above: Performed By: #### U ACUL ####[facility] Dzqj[address] [place] [address] BLOOD Negative [facility] Comment on above: Performed By: #### U ACUL ####[facility] LaboratoryL[facility] Emfg[address] [place] [address] CAST Normal 0-3 [facility] Comment on above: Result Comment: OCCH YALINE Performed By: #### U ACUL ####[facility] Laboratory[facility] Bksw[address] [place] [address] Clarity Nom (U) CLEAR [facility] Comment on above: Performed By: #### U ACUL ####[facility] Laboratory[facility] Wzam[address] [place] [address] Color Nom (U) YELLOW [facility] Comment on above: Performed By: #### U ACUL ####[facility] Srea[address] [place] [address] EPI [facility] Comment on above: Result Comment: MODE RATESQUAMOUS Performed By: #### U ACUL ####[facility] Oevk[address] [place] [address] GLUC Negative Normal [facility] Comment on above: Performed By: #### U ACUL ####[facility] Iisi[address] [place] [address] KET Negative Normal NEG [facility] Comment on above: Performed By: #### U ACUL ####[facility] Laboratory[facility] Qmze[address] [place] [address] LEUK LARGE Abnormal NEG [facility] Comment on above: Performed By: #### U ACUL ####[facility] LaboratoryL[facility] Nbrf[address] [place] [address] MICROSCOPIC MANUAL MICROSCOPIC URINES Normal [facility] Comment on above: Performed By: #### U ACUL ####[facility] Laboratory[facility] Qraw[address] [place] [address] NIT Negative Normal NEG [facility] Comment on above: Performed By: #### U ACUL ####[facility] Laboratory[facility] Pbrm[address] [place] [address] pH Test strip (U) 5.0 [pH] Normal 4.6-8.0 [facility] Comment on above: Performed By: #### U ACUL ####[facility] LaboratoryL[facility] Naor[address] [place] [address] PROT Negative Normal NEG [facility] Comment on above: Performed By: #### U ACUL ####[facility] Zwol[address] [place] [address] RBC Test strip #/vol (U) NONE SEEN Normal 0-3 [facility] Comment on above: Performed By: #### U ACUL ####[facility] LaboratoryL[facility] Dsne[address] [place] [address] SP GRAV,URINE 1.015 Normal 1.005-1.030 [facility] Comment on above: Performed By: #### U ACUL ####[facility] LaboratoryL[facility] Wtwc[address] [place] [address] URO Negative Normal 0-1.0 [facility] Comment on above: Performed By: #### U ACUL ####[facility] Laboratory[facility] Tfif[address] [place] [address] WBC 2-4 Normal 0-3 [facility] Comment on above: Performed By: #### U ACUL ####[facility] LaboratoryL[facility] Ehoe[address] [place] [address] Glucose, POCon 12-31-2017 Glucose mass conc 182 mg/dL High [address] [place] [address] Comment on above: Performed By: #### L IPID, TSH ####Unless otherwise noted, all testing performed by [address]CLIA: [id number] Director: Melva Escamilla M.D. Glucose mass conc 365 mg/dL High [address] [place] [address] Comment on above: Performed By: #### L IPID, TSH ####Unless otherwise noted, all testing performed by [address]8509CLIA: [id number] Director: Melva Escamilla M.D. Glucose mass conc 85 mg/dL Normal [address] [place] [address] Comment on above: Performed By: #### L IPID, TSH ####Unless otherwise noted, all testing performed by [address]IA: [id number] Director: Melva Escamilla M.D. Glucose, POCon 12-30-2017 Glucose mass conc 173 mg/dL High [address] Comment on above: Performed By: #### L IPID, TSH ####Unless otherwise noted, all testing performed by [address]IA: [id number] Director: Melva Escamilla M.D. Glucose mass conc 175 mg/dL High [address] Comment on above: Performed By: #### L IPID, TSH ####Unless otherwise noted, all testing performed by [address] [phone]: [id number] Director: Melva Escamilla M.D. Glucose mass conc 419 mg/dL Critically high [address] Comment on above: Performed By: #### L IPID, TSH ####Unless otherwise noted, all testing performed by [address] [phone]: [id number] Director: Melva Escamilla M.D. Glucose mass conc 83 mg/dL Normal [address] [place] [address] Comment on above: Performed By: #### L IPID, TSH ####Unless otherwise noted, all testing performed by [place] [id number]: [id number] Director: Melva Escamilla M.D. Glucose, POCon 12-29-2017 Glucose mass conc 249 mg/dL High [address] [place] [address] Comment on above: Performed By: #### L IPID, TSH ####Unless otherwise noted, all testing performed by [place] [id number]: [id number] Director: Melva Escamilla M.D. Glucose mass conc 248 mg/dL High [address] Comment on above: Performed By: #### L IPID, TSH ####Unless otherwise noted, all testing performed by [address] [phone]: [id number] Director: Melva Escamilla M.D. Glucose mass conc 330 mg/dL High 80-115 [facility] Comment on above: Performed By: #### L IPID, TSH ####Unless otherwise noted, all testing performed by [address] [phone]: [id number] Director: Melva Escamilla M.D. Glucose mass conc 98 mg/dL Normal [address] Comment on above: Performed By: #### L IPID, TSH ####Unless otherwise noted, all testing performed by [address]509[address]IA: [id number] Director: Melva Escamilla M.D. Glucose, POCon 12-28-2017 Glucose mass conc 316 mg/dL High [address] [place] [address] Comment on above: Performed By: #### L IPID, TSH ####Unless otherwise noted, all testing performed by [place] [address]CLIA: [id number] Director: Melva Escamilla M.D. Glucose mass conc 158 mg/dL High [address] [place] [address] Comment on above: Performed By: #### L IPID, TSH ####Unless otherwise noted, all testing performed by [address] [id number]: [id number] Director: Melva Escamilla M.D. Glucose mass conc 324 mg/dL High [address] [place] [address] Comment on above: Performed By: #### L IPID, TSH ####Unless otherwise noted, all testing performed by [place] [address]CLIA: [id number] Director: Melva Escamilla M.D. Glucose mass conc 84 mg/dL Normal 80-115 [facility] Comment on above: Performed By: #### L IPID, TSH ####Unless otherwise noted, all testing performed by [address]509[address]IA: [id number] Director: Melva Escamilla M.D. Glucose, POCon 12-27-2017 Glucose mass conc 160 mg/dL High [address] Comment on above: Performed By: #### L IPID, TSH ####Unless otherwise noted, all testing performed by [address]IA: [id number] Director: Melva Escamilla M.D. Glucose mass conc 204 mg/dL High [address] [place] [address] Comment on above: Performed By: #### L IPID, TSH ####Unless otherwise noted, all testing performed by [address]509[address]IA: [id number] Director: Melva Escamilla M.D. Glucose mass conc 164 mg/dL High [address] Comment on above: Performed By: #### L IPID, TSH ####Unless otherwise noted, all testing performed by [address]509[address]IA: [id number] Director: Melva Escamilla M.D. Glucose mass conc 123 mg/dL High [address] Comment on above: Performed By: #### L IPID, TSH ####Unless otherwise noted, all testing performed by [address] [phone]: [id number] Director: Melva Escamilla M.D. Glucose, POCon 12-26-2017 Glucose mass conc 173 mg/dL High [address] [place] [address] Comment on above: Performed By: #### L IPID, TSH ####Unless otherwise noted, all testing performed by [place] [id number]: [id number] Director: Melva Escamilla M.D. Glucose mass conc 243 mg/dL High 80-115 [facility] Comment on above: Performed By: #### L IPID, TSH ####Unless otherwise noted, all testing performed by [address]526-8509CLIA: [id number] Director: Melva Escamilla M.D. Glucose mass conc 314 mg/dL High 80-115 [facility] Comment on above: Performed By: #### L IPID, TSH ####Unless otherwise noted, all testing performed by [address]526-8509CLIA: [id number] Director: Melva Escamilla M.D. Glucose mass conc 114 mg/dL Normal [address] [place] [address] Comment on above: Performed By: #### L IPID, TSH ####Unless otherwise noted, all testing performed by [address] [phone]: [id number] Director: Melva Escamilla M.D. Glucose, POCon 12-25-2017 Glucose mass conc 185 mg/dL High [address] Comment on above: Performed By: #### L IPID, TSH ####Unless otherwise noted, all testing performed by [address] [phone]: [id number] Director: Melva Escamilla M.D. Glucose mass conc 290 mg/dL High [address] Comment on above: Performed By: #### L IPID, TSH ####Unless otherwise noted, all testing performed by [address]IA: [id number] Director: Melva Escamilla M.D. Glucose mass conc 181 mg/dL High [address] [place] [address] Comment on above: Performed By: #### L IPID, TSH ####Unless otherwise noted, all testing performed by [address]IA: [id number] Director: Melva Escamilla M.D. Glucose mass conc 130 mg/dL High [address] [place] [address] Comment on above: Performed By: #### L IPID, TSH ####Unless otherwise noted, all testing performed by [address]IA: [id number] Director: Melva Escamilla M.D. Glucose, POCon 12-24-2017 Glucose mass conc 146 mg/dL High [address] [place] [address] Comment on above: Performed By: #### L IPID, TSH ####Unless otherwise noted, all testing performed by [address], [place] [phone]: [id number] Director: Melva Escamilla M.D. Glucose mass conc 232 mg/dL High 80[address] [place] [address] Comment on above: Performed By: #### L IPID, TSH ####Unless otherwise noted, all testing performed by [address] [phone]: [id number] Director: Melva Escamilal M.D. Glucose mass conc 274 mg/dL High [address] [place] [address] Comment on above: Performed By: #### L IPID, TSH ####Unless otherwise noted, all testing performed by [address]509[address]IA: [id number] Director: Melva Escamilla M.D. Glucose mass conc 82 mg/dL Normal [address] [place] [address] Comment on above: Performed By: #### L IPID, TSH ####Unless otherwise noted, all testing performed by [address] [phone]: [id number] Director: Melva Escamilla M.D. Glucose, POCon 12-23-2017 Glucose mass conc 156 mg/dL High [address] Comment on above: Performed By: #### L IPID, TSH ####Unless otherwise noted, all testing performed by [address]IA: [id number] Director: Melva Escamilla M.D. Glucose mass conc 154 mg/dL High [address] Comment on above: Performed By: #### L IPID, TSH ####Unless otherwise noted, all testing performed by [address] [phone]: [id number] Director: Melva Escamilla M.D. Glucose mass conc 251 mg/dL High [address] Comment on above: Performed By: #### L IPID, TSH ####Unless otherwise noted, all testing performed by [address] [phone]: [id number] Director: Melva Escamilla M.D. Glucose mass conc 144 mg/dL High [address] [place] [address] Comment on above: Performed By: #### L IPID, TSH ####Unless otherwise noted, all testing performed by [address] [phone]: [id number] Director: Melva Escamilla M.D. Glucose, POCon 12-22-2017 Glucose mass conc 215 mg/dL High [address] [place] [address] Comment on above: Performed By: #### L IPID, TSH ####Unless otherwise noted, all testing performed by [address] [phone]: [id number] Director: Melva Escamilla M.D. Glucose mass conc 166 mg/dL High [address] [place] [address] Comment on above: Performed By: #### L IPID, TSH ####Unless otherwise noted, all testing performed by [address]526-8509CLIA: [id number] Director: Melva Escamilla M.D. Glucose mass conc 289 mg/dL High [address] [place] [address] Comment on above: Performed By: #### L IPID, TSH ####Unless otherwise noted, all testing performed by [address]IA: [id number] Director: Melva Escamilla M.D. Glucose mass conc 142 mg/dL High [address] [place] [address] Comment on above: Performed By: #### L IPID, TSH ####Unless otherwise noted, all testing performed by [place] [address]CLIA: [id number] Director: Melva Escamilla M.D. Glucose, POCon 12-21-2017 Glucose mass conc 258 mg/dL High [address] [place] [address] Comment on above: Performed By: #### L IPID, TSH ####Unless otherwise noted, all testing performed by [place] [address]CLIA: [id number] Director: Melva Escamilla M.D. Glucose mass conc 233 mg/dL [address] Comment on above: Performed By: #### L IPID, TSH ####Unless otherwise noted, all testing performed by [address]IA: [id number] Director: Melva Escamilla M.D. Glucose mass conc 285 mg/dL High [address] [place] [address] Comment on above: Performed By: #### L IPID, TSH ####Unless otherwise noted, all testing performed by [address] [phone]: [id number] Director: Melva Escamilla M.D. Glucose mass conc 131 mg/dL High 80-115 [facility] Comment on above: Performed By: #### L IPID, TSH ####Unless otherwise noted, all testing performed by [address] [phone]: [id number] Director: Melva Escamilla M.D. Hemoglobin A1Con 12-21-2017 Hemoglobin A1c/Hemoglobin.total mass fraction (Bld) 8.1 % High 4.1-6.5 [facility] Comment on above: Performed By: #### L IPID, TSH ####Unless otherwise noted, all testing performed by [address] [phone]: [id number] Director: Melva Escamilla M.D. CBC with Diffon 12-20-2017 Basophils Auto #/vol (Bld) 0.1 K/mcL Normal 0-0.2 [facility] Comment on above: Performed By: #### L IPID, TSH ####Unless otherwise noted, all testing performed by [address] [phone]: [id number] Director: Melva Escamilla M.D. Basophils/100 WBC Auto (Bld) 1.1 % Normal [facility] Comment on above: Performed By: #### L IPID, TSH ####Unless otherwise noted, all testing performed by [address] [phone]: [id number] Director: Melva Escamilla M.D. Eosinophils Auto #/vol (Bld) 0.3 K/mcL Normal 0-0.5 [facility] Comment on above: Performed By: #### L IPID, TSH ####Unless otherwise noted, all testing performed by [address]: [id number] Director: Melva Escamilla M.D. Eosinophils/100 WBC Auto (Bld) 4.7 % Normal [facility] Comment on above: Performed By: #### L IPID, TSH ####Unless otherwise noted, all testing performed by [address]IA: [id number] Director: Melva Escamilla M.D. Erythrocyte distribution width Auto Ratio (RBC) 16.5 % High 10.0-14.4 [facility] Comment on above: Performed By: #### L IPID, TSH ####Unless otherwise noted, all testing performed by [place] [id number]: [id number] Director: Melva Escamilla M.D. Hematocrit Auto Volume Fraction (Bld) 33.3 % Low 34.4-44.8 [facility] Comment on above: Performed By: #### L IPID, TSH ####Unless otherwise noted, all testing performed by [place] [id number]: [id number] Director: Melva Escamilla M.D. Hemoglobin mass conc (Bld) 11.0 g/dL Low 11.6-15.4 [facility] Comment on above: Performed By: #### L IPID, TSH ####Unless otherwise noted, all testing performed by [address] [phone]: [id number] Director: Melva Escamilla M.D. Lymphocytes Auto #/vol (Bld) 1.5 K/mcL Normal 1.0-3.7 [facility] Comment on above: Performed By: #### L IPID, TSH ####Unless otherwise noted, all testing performed by [address] [phone]: [id number] Director: Melva Escamilla M.D. Lymphocytes/100 WBC Auto (Bld) 20.6 % Normal [facility] Comment on above: Performed By: #### L IPID, TSH ####Unless otherwise noted, all testing performed by [address] [phone]: [id number] Director: Melva Escamilla M.D. MCH Auto Entitic mass (RBC) 27.9 pg Normal 27.9-33.9 [facility] Comment on above: Performed By: #### L IPID, TSH ####Unless otherwise noted, all testing performed by [address] [phone]: [id number] Director: Melva Escamilla M.D. MCHC Auto mass conc (RBC) 33.1 g/dL Normal 33.1-35.1 [facility] Comment on above: Performed By: #### L IPID, TSH ####Unless otherwise noted, all testing performed by [place] [phone]: [id number] Director: Melva Escamilla M.D. MCV Auto Entitic volume (RBC) 84.5 fL Normal 82.6-98.9 [facility] Comment on above: Performed By: #### L IPID, TSH ####Unless otherwise noted, all testing performed by [address]IA: [id number] Director: Melva Escamilla M.D. Monocytes Auto #/vol (Bld) 0.8 K/mcL High 0.1-0.6 [facility] Comment on above: Performed By: #### L IPID, TSH ####Unless otherwise noted, all testing performed by [place] [address]CLIA: [id number] Director: Melva Escamilla M.D. Monocytes/100 WBC Auto (Bld) 11.4 % Normal [facility] Comment on above: Performed By: #### L IPID, TSH ####Unless otherwise noted, all testing performed by [place] [address]CLIA: [id number] Director: Melva Escamilla M.D. Neutrophils Auto #/vol (Bld) 4.5 K/mcL Normal 1.2-6.9 [facility] Comment on above: Performed By: #### L IPID, TSH ####Unless otherwise noted, all testing performed by [address]IA: [id number] Director: Melva Escamilla M.D. Platelet mean volume Auto Entitic volume (Bld) 8.0 fL Normal 7.0-10.6 [facility] Comment on above: Performed By: #### L IPID, TSH ####Unless otherwise noted, all testing performed by [address] [phone]: [id number] Director: Melva Escamilla M.D. Platelets Auto #/vol (Bld) 266 K/mcL Normal 162-402 [facility] Comment on above: Performed By: #### L IPID, TSH ####Unless otherwise noted, all testing performed by [address] [phone]: [id number] Director: Melva Escamilla M.D. RBC Auto #/vol (Bld) 3.95 M/mcL Normal 3.7-5.0 [facility] Comment on above: Performed By: #### L IPID, TSH ####Unless otherwise noted, all testing performed by [address] [phone]: [id number] Director: Melva Escamilla M.D. Segmented Neut % 62.2 % Normal [facility] Comment on above: Performed By: #### L IPID, TSH ####Unless otherwise noted, all testing performed by [address] [phone]: [id number] Director: Melva Escamilla M.D. WBC Auto #/vol (Bld) 7.3 K/mcL Normal 3.4-10.6 [facility] Comment on above: Performed By: #### L IPID, TSH ####Unless otherwise noted, all testing performed by [address], [place] [phone]: [id number] Director: Melva Escamilla M.D. Comprehensive Metabolic Pane amarjit 12-20-2017 Albumin mass conc 2.8 g/dL Low 3.2-5.2 [facility] Comment on above: Performed By: #### L IPID, TSH ####Unless otherwise noted, all testing performed by [address] [phone]: [id number] Director: Melva Escamilla M.D. ALP enzyme act/vol 128 U/L Normal 40-150 [facility] Comment on above: Performed By: #### L IPID, TSH ####Unless otherwise noted, all testing performed by [address] [phone]: [id number] Director: Melva Escamilla M.D. ALT enzyme act/vol 18 U/L Normal 14-65 [facility] Comment on above: Result Comment: This test result might be falsely depressed or falsely elevated onsamples drawn from patients taking Sulfasalazine and Sulfapyridine.Venipuncture should occur prior to taking either of these drugs. Performed By: #### L IPID, TSH ####Unless otherwise noted, all testing performed by [address] [phone]: [id number] Director: Melva Escamilla M.D. AST enzyme act/vol 12 U/L Normal 0-45 [facility] Comment on above: Result Comment: This test result might be falsely depressed or falsely elevated onsamples drawn from patients taking Sulfasalazine and Sulfapyridine.Venipuncture should occur prior to taking either of these drugs. Performed By: #### L IPID, TSH ####Unless otherwise noted, all testing performed by [address] [phone]: [id number] Director: Melva Escamilla M.D. Bilirubin mass conc 0.2 mg/dL Low 0.3-1.[address] [facility] Comment on above: Performed By: #### L IPID, TSH ####Unless otherwise noted, all testing performed by [address] [id number]: [id number] Director: Melva Escamilla M.D. Calcium mass conc 9.4 mg/dL Normal 8.4-10.2 [facility] Comment on above: Performed By: #### L IPID, TSH ####Unless otherwise noted, all testing performed by [place] [id number]: [id number] Director: Melva Escamilla M.D. Chloride molar conc 108 mmol/L Normal 98-[address] [facility] Comment on above: Performed By: #### L IPID, TSH ####Unless otherwise noted, all testing performed by [address] [phone]: [id number] Director: Melva Escamilla M.D. CO2 molar conc 23 mmol/L Normal 21-32 [facility] Comment on above: Performed By: #### L IPID, TSH ####Unless otherwise noted, all testing performed by [address] [phone]: [id number] Director: Melva Escamilla M.D. Creatinine mass conc 0.66 mg/dL Normal 0.60-1.20 [facility] Comment on above: Performed By: #### L IPID, TSH ####Unless otherwise noted, all testing performed by [address] [phone]: [id number] Director: Melva Escamilla M.D. GFR/1.73 sq M predicted among blacks MDRD vol rate/area (S/P/Bld) mL/min/{1.73_m2} Normal [facility] Comment on above: Result Comment: Afri can Mauritian GFR Calc Performed By: #### L IPID, TSH ####Unless otherwise noted, all testing performed by [address] [phone]: [id number] Director: Melva Escamilla M.D. GFR/1.73 sq M predicted among non-blacks MDRD vol rate/area (S/P/Bld) mL/min/{1.73_m2} Normal [facility] Comment on above: Result Comment: Non- [...] ####Unless otherwise noted, all testing performed by [address] [phone]: [id number] Director: Melva Escamilla M.D. Glucose mass conc 168 mg/dL High 70-99 [facility] Comment on above: Result Comment: This test result might be falsely depressed or falsely elevated onsamples drawn from patients taking Sulfasalazine and Sulfapyridine.Venipuncture should occur prior to taking either of these drugs. Performed By: #### L IPID, TSH ####Unless otherwise noted, all testing performed by [address] [phone]: [id number] Director: Melva Escamilla M.D. Potassium molar conc 4.0 mmol/L Normal 3.5-5.1 [facility] Comment on above: Performed By: #### L IPID, TSH ####Unless otherwise noted, all testing performed by [address]8[address]CLIA: [id number] Director: Melva Escamilla M.D. Protein mass conc 5.8 g/dL Low 6.0-8.0 [facility] Comment on above: Performed By: #### L IPID, TSH ####Unless otherwise noted, all testing performed by [address]8509CLIA: [id number] Director: Melva Escamilla M.D. Sodium molar conc 136 mmol/L Normal 135-145 [facility] Comment on above: Performed By: #### L IPID, TSH ####Unless otherwise noted, all testing performed by [place] [id number]: [id number] Director: Melva Escamilla M.D. Urea nitrogen mass conc 20 mg/dL Normal 8-25 [facility] Comment on above: Performed By: #### L IPID, TSH ####Unless otherwise noted, all testing performed by [address], [place] [phone]: [id number] Director: Melva Escamilla M.D. Exception Noticeon 8 Exception Notice QNS REDRAWCMET,LIPID,TSH Normal [facility] Comment on above: Performed By: #### L IPID, TSH ####Unless otherwise noted, all testing performed by [phone]: [id number] Director: Melva Escamilla M.D. Glucose, POCon 12-20-2017 Glucose mass conc 220 mg/dL High [address] [place] [address] Comment on above: Performed By: #### L IPID, TSH ####Unless otherwise noted, all testing performed by [place] [address]CLIA: [id number] Director: Melva Escamilla M.D. Glucose mass conc 206 mg/dL High [address] [place] [address] Comment on above: Performed By: #### L IPID, TSH ####Unless otherwise noted, all testing performed by [address] [phone]: [id number] Director: Melva Escamilla M.D. Glucose mass conc 274 mg/dL High [address] Comment on above: Performed By: #### L IPID, TSH ####Unless otherwise noted, all testing performed by [address] [phone]: [id number] Director: Melva Escamilla M.D. Glucose mass conc 224 mg/dL High [address] [place] [address] Comment on above: Performed By: #### L IPID, TSH ####Unless otherwise noted, all testing performed by [facility] [address] [address], [place] [phone]: [id number] Director: Melva Escamilla M.D. History And Physical-Dictate don 12-20-2017 History And Physical-Dictated [place] [address], [place] [address]OWKN ELO GRAY [facility] [id number] [id number] 5ADMIT 12/19/2017HISTORY AND PHYSICALPATIENT IDENTIFICATIONElijessica is a [...] and [facility] medically cleared beforebeing sent [...] denies known family history of mental illness.MEDICAL HISTORYShe has a peptic ulcer, multiple sclerosis, GERD, [...] made as clinically indicated.ALEJANDRO MCNAIR 12/19/2017 17:36 [id number] 12/19/2017 19:31 REO/MODLElectronically Signed By Annetta Ruiz M.D. on 20 Dec 2017 18:20:28 GMT Normal [facility] Protein mass conc [facility], [place] [address]BFUM ELO RGAY Barbara [facility] [id number] 1955DATE 12/19/2017PROGRESS NOTEThe patient seen and chart [...] 98, respirations 16.ANNETTA RUIZ, ALEJANDRO 12/20/2017 14:18 [id number] 12/20/2017 14:49 REO/MODLElectronically Signed By Annetta Ruiz M.D. on 20 Dec 2017 19:37:56 GMT Normal [facility] Lipid Panelon 12-20-2017 Cholesterol in HDL mass conc 70 mg/dL High 40-59 [facility] Comment on above: Performed By: #### L IPID, TSH ####Unless otherwise noted, all testing performed by [facility], [place] [phone]: [id number] Director: Melva Escamilla M.D. Cholesterol in LDL mass conc 17 mg/dL Normal 10-150 [facility] Comment on above: Performed By: #### L IPID, TSH ####Unless otherwise noted, all testing performed by [address] [phone]: [id number] Director: Melva Escamilla M.D. Cholesterol in VLDL mass conc 24 mg/dL Normal 5-40 [facility] Comment on above: Performed By: #### L IPID, TSH ####Unless otherwise noted, all testing performed by [place] [address]CLIA: [id number] Director: Melva Escamilla M.D. Cholesterol mass conc 111 mg/dL Normal 100-199 [facility] Comment on above: Performed By: #### L IPID, TSH ####Unless otherwise noted, all testing performed by [address]526-8[address]CLIA: [id number] Director: Melva Escamilla M.D. Cholesterol.total/Cho lesterol in HDL mass ratio 1.6 {ratio} Low 3.2-5.0 [facility] Comment on above: Result Comment: Fema le Coronary Heart Disease Risk Factor (CHDRF):Average risk= 4.41/2 Average risk= 3.32 times Average risk= 7.1 Performed By: #### L IPID, TSH ####Unless otherwise noted, all testing performed by [address] [phone]: [id number] Director: Melva Escamilla M.D. Triglyceride mass conc 120 mg/dL Normal 25-120 [facility] Comment on above: Performed By: #### L IPID, TSH ####Unless otherwise noted, all testing performed by [address] [phone]: [id number] Director: Melva Escamilla M.D. TSHon 12-20-2017 Thyrotropin Qn 0.77 uIU/mL Normal 0.320-5.000 [facility] Comment on above: Result Comment: Samp les from patients routinely receiving high dose biotin therapy(100-300 mg/day) may show falsely decreased results. Please correlateclinically. Performed By: #### L IPID, TSH ####Unless otherwise noted, all testing performed by [address] [phone]: [id number] Director: Melva Escamilla M.D. Urinalysis, Routineon 2017 Bacteria LM.HPF #/area (Urine sed) Rare Normal NS;RARE [facility] Comment on above: Performed By: #### L IPID, TSH ####Unless otherwise noted, all testing performed by [address] [phone]: [id number] Director: Melva Escamilla M.D. Bilirubin,Urine Negative Normal NEG;NEGATIV E [facility] Comment on above: Performed By: #### L IPID, TSH ####Unless otherwise noted, all testing performed by [address] [phone]: [id number] Director: Melva Escamilla M.D. Blood,Urine Negative Normal NEG;NEGATIV E [facility] Comment on above: Performed By: #### L IPID, TSH ####Unless otherwise noted, all testing performed by [address] [phone]: [id number] Director: Melva Escamilla M.D. Character Clear Normal [facility] Comment on above: Performed By: #### L IPID, TSH ####Unless otherwise noted, all testing performed by [address]8509CLIA: [id number] Director: Melva Escamilla M.D. Color Nom (U) Altagracia Normal [facility] Comment on above: Performed By: #### L IPID, TSH ####Unless otherwise noted, all testing performed by [address]8509CLIA: [id number] Director: Melva Escamilla M.D. Glucose Ql (U) Negative Normal NEG;NEGATIV E [facility] Comment on above: Performed By: #### L IPID, TSH ####Unless otherwise noted, all testing performed by [address]8509CLIA: [id number] Director: Melva Escamilla M.D. Ketone,Urine Negative Normal NEG;NEGATIV E [facility] Comment on above: Performed By: #### L IPID, TSH ####Unless otherwise noted, all testing performed by [address]8509CLIA: [id number] Director: Melva Escamilla M.D. Leuk.Esterase,Urine Small Abnormal Negative [facility] Comment on above: Performed By: #### L IPID, TSH ####Unless otherwise noted, all testing performed by [address] [phone]: [id number] Director: Melva Escamilla M.D. Nitrite,Urine CANNOT RESULT DUE TO COLOR INTERFERENCE. Normal [facility] Comment on above: Performed By: #### L IPID, TSH ####Unless otherwise noted, all testing performed by [place] [address]CLIA: [id number] Director: Melva Escamilla M.D. pH Test strip (U) CANNOT RESULT DUE TO COLOR INTERFERENCE. Normal [facility] Comment on above: Performed By: #### L IPID, TSH ####Unless otherwise noted, all testing performed by [place] [address]CLIA: [id number] Director: Melva Escamilla M.D. Protein,Urine Negative Normal NEG;NEGATIV E [facility] Comment on above: Performed By: #### L IPID, TSH ####Unless otherwise noted, all testing performed by [place] [phone]: [id number] Director: Melva Escamilla M.D. RBC LM.HPF #/area (Urine sed) /[HPF] Normal 0-5 [facility] Comment on above: Performed By: #### L IPID, TSH ####Unless otherwise noted, all testing performed by [address] [phone]: [id number] Director: Melva Escamilla M.D. Specific [place],Urine 1.008 Normal 1.003-1.029 [facility] Comment on above: Performed By: #### L IPID, TSH ####Unless otherwise noted, all testing performed by [address] [phone]: [id number] Director: Melva Escamilla M.D. Squamous Epithelial 3 /HPF Normal 0-[address] [facility] Comment on above: Performed By: #### L IPID, TSH ####Unless otherwise noted, all testing performed by [place] [address]CLIA: [id number] Director: Melva Escamilla M.D. Urobilinogen,Urine CANNOT RESULT DUE TO COLOR INTERFERENCE. Normal [facility] Comment on above: Performed By: #### L IPID, TSH ####Unless otherwise noted, all testing performed by [place] [address]CLIA: [id number] Director: Melva Escamilla M.D. WBC,Urine 3 /HPF Normal 0-5 [facility] Comment on above: Performed By: #### L IPID, TSH ####Unless otherwise noted, all testing performed by [place] [phone]: [id number] Director: Melva Escamilla M.D. Glucose, POCon 12-19-2017 Glucose mass conc 292 mg/dL High 80-115 [facility] Comment on above: Performed By: #### L IPID, TSH ####Unless otherwise noted, all testing performed by [place] [phone]: [id number] Director: Melva Escamilla M.D. Glucose mass conc 185 mg/dL [address] Comment on above: Performed By: #### L IPID, TSH ####Unless otherwise noted, all testing performed by [address]8509CLIA: [id number] Director: Melva Escamilla M.D. Glucose mass conc 260 mg/dL High [address] [place] [address] Comment on above: Performed By: #### L IPID, TSH ####Unless otherwise noted, all testing performed by [address]8509CLIA: [id number] Director: Melva Escamilla M.D. Glucose, POCon 12-10-2017 Glucose mass conc 297 mg/dL [address] Comment on above: Performed By: #### L IPID, TSH ####Unless otherwise noted, all testing performed by [address]8509CLIA: [id number] Director: Melva Escamilla M.D. Glucose mass conc 118 mg/dL [address] Comment on above: Performed By: #### L IPID, TSH ####Unless otherwise noted, all testing performed by [address]8509CLIA: [id number] Director: Melva Escamilla M.D. Glucose, POCon 12-09-2017 Glucose mass conc 167 mg/dL [address] Comment on above: Performed By: #### L IPID, TSH ####Unless otherwise noted, all testing performed by [address] [phone]: [id number] Director: Melva Escamilla M.D. Glucose mass conc 224 mg/dL High [address] [facility] Comment on above: Performed By: #### L IPID, TSH ####Unless otherwise noted, all testing performed by [address] [phone]: [id number] Director: Melva Escamilla M.D. Glucose mass conc 286 mg/dL High [address] Comment on above: Performed By: #### L IPID, TSH ####Unless otherwise noted, all testing performed by [address] [phone]: [id number] Director: Melva Escamilla M.D. Glucose mass conc 148 mg/dL High [address] Comment on above: Performed By: #### L IPID, TSH ####Unless otherwise noted, all testing performed by [place] [id number]: [id number] Director: Melva Escamilla M.D. Ferritinon 12-08-2017 Ferritin [Mass/volume] in Serum or Plasma 12 ng/mL Low 13-150 [facility] Comment on above: Result Comment: Samp les from patients routinely receiving high dose biotin therapy(100-300 mg/day) may show falsely decreased results. Please correlateclinically. Performed By: #### G LUX ####Unless otherwise noted, all testing performed by [address], [place] [phone]: [id number] Director: Melva Escamilla M.D. Glucose, POCon 12-08-2017 Glucose mass conc 235 mg/dL High [address] Comment on above: Performed By: #### G LUX ####Unless otherwise noted, all testing performed by [address] [phone]: [id number] Director: Melva Escamilla M.D. Glucose mass conc 185 mg/dL High [address] [place] [address] Comment on above: Performed By: #### G LUX ####Unless otherwise noted, all testing performed by [address] [phone]: [id number] Director: Melva Escamilla M.D. Glucose mass conc 300 mg/dL High [address] [place] [address] Comment on above: Performed By: #### G LUX ####Unless otherwise noted, all testing performed by [address] [phone]: [id number] Director: Melva Escamilla M.D. Glucose mass conc 151 mg/dL High [address] [place] [address] Comment on above: Performed By: #### G LUX ####Unless otherwise noted, all testing performed by [address] [phone]: [id number] Director: Melva Escamilla M.D. History And Physical-Dictate don 12-08-2017 History And Physical-Dictated [address] [address]XBFA ELO GRAY [facility] [id number] 5ADMIT 12/01/2017HISTORY AND PHYSICALIDENTIFYING INFORMATIONElo Gray is a 61-year-old female residing in [place], [place].HISTORY OF PRESENT ILLNESSPatient was brought to the [facility] after the patient wasseen by a therapist due to uncontrollable desire to commit suicide. Thepatient was admitted with application for emergency admission signed byemergency department physician from the [facility]. Thepatient was also seen by pre-screener from [facility] and had expressed concern about the patient's [...] an issue about a pedophile living in [facility] and, when reported by the patient [...] [facility]ry, inJune 2018. She has been followed at [facility], [place].FAMILY HISTORYBiological mother from pancreatic cancer in 2010. Father of lungcancer in 2003. The patient has 1 biological brother living in [place] and abiological sister living in [place]. The patient stated that her husbanddied 2 years ago. The patient has 2 daughters residing in [facility].SOCIAL HISTORYPatient had worked for a [employer] for 10 years. She subsequently [employer] for 2 years, taking classes in [employer], and had worked in [employer] for 4 years. She has been receiving [...] Temperature 98.7, pulse 66, blood pressure 124/74, dpltbecgitqh16.LABORATORY DATAChemistry unremarkable. Hematology revealed low hemoglobin, hematocrit, MCH,MCHC.REVIEW OF SYSTEMSTen systems were reviewed. No significant findings.General appearance: Elo Gray is a 61-year-old female,ambulatory, alert, oriented.Skin and mucous membranes: No lesions.Lymphatics: No lymphadenopathy.Skeletal/ extremities: Normal range of motion.Head: Normocephalic, atraumatic.Ears: No discharge noted.Eyes: Pupils round, equal, regular.Nose: No discharge noted.Mouth/pharynx: [place] mucosa.Neck: Supple.Respiratory: Clear to auscultation.Cardiovascul ar: Normal [...] monitor blood sugar.YEISON PIKE, ALEJANDRO 12/02/2017 19:45 [id number] 12/02/2017 20:54 YKD/MODLElectronically Signed By Yeison Pike M.D. on 04 Dec 2017 14:30:37 GMT Normal [facility] Protein mass conc [facility], [place] [address]YZAK ELO GRAY [facility] [id number] 1954DATE 12/08/2017PROGRESS NOTEPatient was seen individually. Case [...] to participate in group therapy, activities therapy.PLANFurther observation.ALEJANDRO SIDHU 12/08/2017 12:02 [id number] 12/08/2017 12:31 YKD/MODLElectronically Signed By Yeison Pike M.D. on 19 Dec 2017 14:16:29 GMT Normal [facility] Iron, Totalon 12-08-2017 Iron, Total 34 mcg/dL Low 50-170 [facility] Comment on above: Performed By: #### G LUX ####Unless otherwise noted, all testing performed by [address] [phone]: [id number] Director: Melva Escamilla M.D. Transferrinon 12-08-2017 Transferrin mass conc 294.0 mg/dL Normal 212.0-360.0 [facility] Comment on above: Performed By: #### G LUX ####Unless otherwise noted, all testing performed by [address] [phone]: [id number] Director: Melva Escamilla M.D. Vitamin B12 and Folateson Cobalamin (Vitamin B12) mass conc 472 pg/mL Normal 193-986 [facility] Comment on above: Performed By: #### G LUX ####Unless otherwise noted, all testing performed by [address] [phone]: [id number] Director: Melva Escamilla M.D. Folate 9.9 ng/mL Normal 3.1-17.5 [facility] Comment on above: Performed By: #### G LUX ####Unless otherwise noted, all testing performed by [address] [phone]: [id number] Director: Melva Escamilla M.D. Culture, Urineon 12-07-2017 Culture, Urine Test Name: Culture, UrineCulture Status: FinalCulture Report: GrowthMicro Source: Urine - clean catchORGANISM ID: 1 - 50,000-75,000 CFU/ml STREPTOCOCCUS AGALACTIAE - (GROUP B)ANTIBIOTIC INTERPRETATION ANTONIA STATUSAmpicillin S <= 0.25 FBenzylpenicillin (other) S <= 0.06 FClindamycin R >= 1 FVancomycin S 0.5 F Normal [facility] Comment on above: Performed By: #### G LUX ####Unless otherwise noted, all testing performed by [address] [phone]: [id number] Director: Melva Escamilla M.D. Glucose, POCon 12-07-2017 Glucose mass conc 238 mg/dL High [address] [place] [address] Comment on above: Performed By: #### T 4TTL, FT4 ####Unless otherwise noted, all testing performed by [place] [address]50[address]CLIA: [id number] Director: Melva Escamilla M.D. Glucose mass conc 234 mg/dL High [address] Comment on above: Performed By: #### T 4TTL, FT4 ####Unless otherwise noted, all testing performed by [address] [phone]: [id number] Director: Melva Escamilla M.D. Glucose mass conc 160 mg/dL [address] Comment on above: Performed By: #### T 4TTL, FT4 ####Unless otherwise noted, all testing performed by [place] [address]CLIA: [id number] Director: Melva Escamilla M.D. Glucose mass conc 387 mg/dL [address] Comment on above: Performed By: #### T 4TTL, FT4 ####Unless otherwise noted, all testing performed by [address] [phone]: [id number] Director: Melva Escamilla M.D. Glucose mass conc 190 mg/dL High 80-115 [facility] Comment on above: Performed By: #### T 4TTL, FT4 ####Unless otherwise noted, all testing performed by [address] [phone]: [id number] Director: Melva Escamilla M.D. Urinalysis, Routineon 2017 Bacteria LM.HPF #/area (Urine sed) Rare Normal NS;RARE [facility] Comment on above: Performed By: #### G LUX ####Unless otherwise noted, all testing performed by [address] [phone]: [id number] Director: Melva Escamilla M.D. Bilirubin,Urine Negative Normal NEG;NEGATIV E [facility] Comment on above: Performed By: #### G LUX ####Unless otherwise noted, all testing performed by [address] [phone]: [id number] Director: Melva Escamilla M.D. Blood,Urine Negative Normal NEG;NEGATIV E [facility] Comment on above: Performed By: #### G LUX ####Unless otherwise noted, all testing performed by [address] [phone]: [id number] Director: Melva Escamilla M.D. Character Clear Normal [facility] Comment on above: Performed By: #### G LUX ####Unless otherwise noted, all testing performed by [address] [phone]: [id number] Director: Melva Escamilla M.D. Color Nom (U) Yellow Normal [facility] Comment on above: Performed By: #### G LUX ####Unless otherwise noted, all testing performed by [address]8509CLIA: [id number] Director: Melva Escamilla M.D. Glucose Ql (U) Negative Normal NEG;NEGATIV E [facility] Comment on above: Performed By: #### G LUX ####Unless otherwise noted, all testing performed by [address] [phone]: [id number] Director: Melva Escamilla M.D. Ketone,Urine Negative Normal NEG;NEGATIV E [facility] Comment on above: Performed By: #### G LUX ####Unless otherwise noted, all testing performed by [place] [phone]: [id number] Director: Melva Escamilla M.D. Leuk.Esterase,Urine Large Abnormal Negative [facility] Comment on above: Performed By: #### G LUX ####Unless otherwise noted, all testing performed by [address] [phone]: [id number] Director: Melva Escamilla M.D. Nitrite,Urine Negative Normal NEG;NEGATIV E [facility] Comment on above: Performed By: #### G LUX ####Unless otherwise noted, all testing performed by [address] [phone]: [id number] Director: Melva Escamilla M.D. pH Test strip (U) 5.0 [pH] Normal 4.5-8.0 [facility] Comment on above: Performed By: #### G LUX ####Unless otherwise noted, all testing performed by [address] [phone]: [id number] Director: Melva Escamilla M.D. Protein,Urine Negative Normal NEG;NEGATIV E [facility] Comment on above: Performed By: #### G LUX ####Unless otherwise noted, all testing performed by [address] [phone]: [id number] Director: Melva Escamilla M.D. RBC LM.HPF #/area (Urine sed) /[HPF] Normal 0-5 [facility] Comment on above: Performed By: #### G LUX ####Unless otherwise noted, all testing performed by [address] [phone]: [id number] Director: Melva Escamilla M.D. Specific [place],Urine 1.012 Normal 1.003-1.029 [facility] Comment on above: Performed By: #### G LUX ####Unless otherwise noted, all testing performed by [address] [phone]: [id number] Director: Melva Escamilla M.D. Squamous Epithelial 1 /HPF Normal 0-[address] [facility] Comment on above: Performed By: #### G LUX ####Unless otherwise noted, all testing performed by [address] [phone]: [id number] Director: Melva Escamilla M.D. Urobilinogen,Urine < 2.0 Normal <2 [facility] Comment on above: Performed By: #### G LUX ####Unless otherwise noted, all testing performed by [address] [phone]: [id number] Director: Melva Escamilla M.D. WBC,Urine 9 /HPF High 0-5 [facility] Comment on above: Performed By: #### G LUX ####Unless otherwise noted, all testing performed by [place] [phone]: [id number] Director: Melva Escamilla M.D. Glucose, POCon 12-06-2017 Glucose mass conc 267 mg/dL High 80-115 [facility] Comment on above: Performed By: #### T 4TTL, FT4 ####Unless otherwise noted, all testing performed by [address] [phone]: [id number] Director: Melva Escamilla M.D. Glucose mass conc 169 mg/dL High 80-115 [facility] Comment on above: Performed By: #### T 4TTL, FT4 ####Unless otherwise noted, all testing performed by [facility] [phone]: [id number] Director: Melva Escamilla M.D. Glucose mass conc 330 mg/dL High [address] [place] [address] Comment on above: Performed By: #### T 4TTL, FT4 ####Unless otherwise noted, all testing performed by [address] [phone]: [id number] Director: Melva Escamilla M.D. Glucose mass conc 179 mg/dL High [address] [place] [address] Comment on above: Performed By: #### T 4TTL, FT4 ####Unless otherwise noted, all testing performed by [place] [phone]: [id number] Director: Melva Escamilla M.D. Glucose, POCon 12-05-2017 Glucose mass conc 233 mg/dL [address] Comment on above: Performed By: #### T 4TTL, FT4 ####Unless otherwise noted, all testing performed by [address] [phone]: [id number] Director: Melva Escamilla M.D. Glucose mass conc 170 mg/dL [address] Comment on above: Performed By: #### T 4TTL, FT4 ####Unless otherwise noted, all testing performed by [address] [phone]: [id number] Director: Melva Escamilla M.D. Glucose mass conc 242 mg/dL High [address] [facility] Comment on above: Performed By: #### T 4TTL, FT4 ####Unless otherwise noted, all testing performed by [address] [phone]: [id number] Director: Melva Escamilla M.D. Glucose mass conc 113 mg/dL Normal 80-115 [facility] Comment on above: Performed By: #### T 4TTL, FT4 ####Unless otherwise noted, all testing performed by [place] [address]CLIA: [id number] Director: Melva Escamilla M.D. Glucose, POCon 12-04-2017 Glucose mass conc 159 mg/dL High [address] [facility] Comment on above: Performed By: #### T 4TTL, FT4 ####Unless otherwise noted, all testing performed by [place] [address]CLIA: [id number] Director: Melva Escamilla M.D. Glucose mass conc 176 mg/dL High 80-[address] [place] [address] Comment on above: Performed By: #### T 4TTL, FT4 ####Unless otherwise noted, all testing performed by [address] [phone]: [id number] Director: Melva Escamilla M.D. Glucose mass conc 404 mg/dL Critically high 80-115 [facility] Comment on above: Performed By: #### T 4TTL, FT4 ####Unless otherwise noted, all testing performed by [address] [phone]: [id number] Director: Melva Escamilla M.D. Glucose mass conc 158 mg/dL High [address] [place] [address] Comment on above: Performed By: #### T 4TTL, FT4 ####Unless otherwise noted, all testing performed by [address] [phone]: [id number] Director: Melva Escamilla M.D. Glucose, POCon 12-03-2017 Glucose mass conc 167 mg/dL High [address] [place] [address] Comment on above: Performed By: #### T 4TTL, FT4 ####Unless otherwise noted, all testing performed by [address]CLIA: [id number] Director: Melva Escamilla M.D. Glucose mass conc 287 mg/dL High [address] [place] [address] Comment on above: Performed By: #### T 4TTL, FT4 ####Unless otherwise noted, all testing performed by [address] [phone]: [id number] Director: Melva Escamilla M.D. Glucose mass conc 354 mg/dL High [address] [place] [address] Comment on above: Performed By: #### T 4TTL, FT4 ####Unless otherwise noted, all testing performed by [address] [phone]: [id number] Director: Melva Escamilla M.D. Glucose mass conc 236 mg/dL High [address] [place] [address] Comment on above: Performed By: #### G LUX ####Unless otherwise noted, all testing performed by [address] [phone]: [id number] Director: Melva Escamilla M.D. Glucose mass conc 213 mg/dL High 80-115 [facility] Comment on above: Performed By: #### G LUX ####Unless otherwise noted, all testing performed by [address] [phone]: [id number] Director: Melva Escamilla M.D. Urinalysis, Routineon 2017 Bacteria LM.HPF #/area (Urine sed) Rare Normal NS;RARE [facility] Comment on above: Performed By: #### G LUX ####Unless otherwise noted, all testing performed by [address] [phone]: [id number] Director: Melva Escamilla M.D. Bilirubin,Urine Negative Normal NEG;NEGATIV E [facility] Comment on above: Performed By: #### G LUX ####Unless otherwise noted, all testing performed by [address] [phone]: [id number] Director: Melva Escamilla M.D. Blood,Urine Negative Normal NEG;NEGATIV E [facility] Comment on above: Performed By: #### G LUX ####Unless otherwise noted, all testing performed by [address] [phone]: [id number] Director: Melva Escamilla M.D. Cast, Hyaline 1 /LPF Normal 0-5 [facility] Comment on above: Performed By: #### G LUX ####Unless otherwise noted, all testing performed by [place] [phone]: [id number] Director: Melva Escamilla M.D. Character Clear Normal [facility] Comment on above: Performed By: #### G LUX ####Unless otherwise noted, all testing performed by [place] [phone]: [id number] Director: Melva Escamilla M.D. Color Nom (U) Straw Normal [facility] Comment on above: Performed By: #### G LUX ####Unless otherwise noted, all testing performed by [address] [phone]: [id number] Director: Melva Escamilla M.D. Glucose Ql (U) Negative Normal NEG;NEGATIV E [facility] Comment on above: Performed By: #### G LUX ####Unless otherwise noted, all testing performed by [place] [phone]: [id number] Director: Melva Escamilla M.D. Ketone,Urine Negative Normal NEG;NEGATIV E [facility] Comment on above: Performed By: #### G LUX ####Unless otherwise noted, all testing performed by [address] [phone]: [id number] Director: Melva Escamilla M.D. Leuk.Esterase,Urine Small Abnormal Negative [facility] Comment on above: Performed By: #### G LUX ####Unless otherwise noted, all testing performed by [address] [phone]: [id number] Director: Melva Escamilla M.D. Nitrite,Urine Negative Normal NEG;NEGATIV E [facility] Comment on above: Performed By: #### G LUX ####Unless otherwise noted, all testing performed by [address] [phone]: [id number] Director: Melva Escamilla M.D. pH Test strip (U) 6.0 [pH] Normal 4.5-8.0 [facility] Comment on above: Performed By: #### G LUX ####Unless otherwise noted, all testing performed by [address] [phone]: [id number] Director: Melva Escamilla M.D. Protein,Urine Negative Normal NEG;NEGATIV E [facility] Comment on above: Performed By: #### G LUX ####Unless otherwise noted, all testing performed by [address] [phone]: [id number] Director: Melva Escamilla M.D. Specific [place],Urine 1.005 Normal 1.003-1.029 [facility] Comment on above: Performed By: #### G LUX ####Unless otherwise noted, all testing performed by [address] [phone]: [id number] Director: Melva Escamilla M.D. Squamous Epithelial 1 /HPF Normal 0-[address] [facility] Comment on above: Performed By: #### G LUX ####Unless otherwise noted, all testing performed by [address] [phone]: [id number] Director: Melva Escamilla M.D. Trans. Epithelial < 1 Normal 0-3 [facility] Comment on above: Performed By: #### G LUX ####Unless otherwise noted, all testing performed by [address] [phone]: [id number] Director: Melva Escamilla M.D. Urobilinogen,Urine < 2.0 Normal <2 [facility] Comment on above: Performed By: #### G LUX ####Unless otherwise noted, all testing performed by [address] [phone]: [id number] Director: Melva Escamilla M.D. WBC,Urine 4 /HPF Normal 0-5 [facility] Comment on above: Performed By: #### G LUX ####Unless otherwise noted, all testing performed by [address] [phone]: [id number] Director: Melva Escamilla M.D. CBC with Diffon 12-02-2017 Basophils Auto #/vol (Bld) 0.1 K/mcL Normal 0-0.2 [facility] Comment on above: Performed By: #### G LUX ####Unless otherwise noted, all testing performed by [address], [place] [phone]: [id number] Director: Melva Escamilla M.D. Basophils/100 WBC Auto (Bld) 1.1 % Normal [facility] Comment on above: Performed By: #### G LUX ####Unless otherwise noted, all testing performed by [address] [phone]: [id number] Director: Melva Escamilla M.D. Eosinophils Auto #/vol (Bld) 0.2 K/mcL Normal 0-0.5 [facility] Comment on above: Performed By: #### G LUX ####Unless otherwise noted, all testing performed by [address]CLIA: [id number] Director: Melva Escamilla M.D. Eosinophils/100 WBC Auto (Bld) 3.5 % Normal [facility] Comment on above: Performed By: #### G LUX ####Unless otherwise noted, all testing performed by [address] [phone]: [id number] Director: Melva Escamilla M.D. Erythrocyte distribution width Auto Ratio (RBC) 16.0 % High 10.0-14.4 [facility] Comment on above: Performed By: #### G LUX ####Unless otherwise noted, all testing performed by [address] [phone]: [id number] Director: Melva Escamilla M.D. Hematocrit Auto Volume Fraction (Bld) 31.8 % Low 34.4-44.8 [facility] Comment on above: Performed By: #### G LUX ####Unless otherwise noted, all testing performed by [address] [phone]: [id number] Director: Melva Escamilla M.D. Hemoglobin mass conc (Bld) 10.4 g/dL Low 11.6-15.4 [facility] Comment on above: Performed By: #### G LUX ####Unless otherwise noted, all testing performed by [address] [phone]: [id number] Director: Melva Escamilla M.D. Lymphocytes Auto #/vol (Bld) 1.4 K/mcL Normal 1.0-3.7 [facility] Comment on above: Performed By: #### G LUX ####Unless otherwise noted, all testing performed by [address] [phone]: [id number] Director: Melva Escamilla M.D. Lymphocytes/100 WBC Auto (Bld) 23.1 % Normal [facility] Comment on above: Performed By: #### G LUX ####Unless otherwise noted, all testing performed by [address] [phone]: [id number] Director: Melva Escamilla M.D. MCH Auto Entitic mass (RBC) 27.4 pg Low 27.9-33.9 [facility] Comment on above: Performed By: #### G LUX ####Unless otherwise noted, all testing performed by [address] [phone]: [id number] Director: Melva Escamilla M.D. MCHC Auto mass conc (RBC) 32.6 g/dL Low 33.1-35.1 [facility] Comment on above: Performed By: #### G LUX ####Unless otherwise noted, all testing performed by [address] [phone]: [id number] Director: Melva Escamilla M.D. MCV Auto Entitic volume (RBC) 84.1 fL Normal 82.6-98.9 [facility] Comment on above: Performed By: #### G LUX ####Unless otherwise noted, all testing performed by [address]CLIA: [id number] Director: Melva Escamilla M.D. Monocytes Auto #/vol (Bld) 0.7 K/mcL High 0.1-0.6 [facility] Comment on above: Performed By: #### G LUX ####Unless otherwise noted, all testing performed by [place] [phone]: [id number] Director: Melva Escamilla M.D. Monocytes/100 WBC Auto (Bld) 12.3 % Normal [facility] Comment on above: Performed By: #### G LUX ####Unless otherwise noted, all testing performed by [place] [phone]: [id number] Director: Melva Escamilla M.D. Neutrophils Auto #/vol (Bld) 3.5 K/mcL Normal 1.2-6.9 [facility] Comment on above: Performed By: #### G LUX ####Unless otherwise noted, all testing performed by [address] [phone]: [id number] Director: Melva Escamilla M.D. Platelet mean volume Auto Entitic volume (Bld) 7.9 fL Normal 7.0-10.6 [facility] Comment on above: Performed By: #### G LUX ####Unless otherwise noted, all testing performed by [address] [phone]: [id number] Director: Melva Escamilla M.D. Platelets Auto #/vol (Bld) 212 K/mcL Normal 162-402 [facility] Comment on above: Performed By: #### G LUX ####Unless otherwise noted, all testing performed by [address] [phone]: [id number] Director: Melva Escamilla M.D. RBC Auto #/vol (Bld) 3.78 M/mcL Normal 3.7-5.0 [facility] Comment on above: Performed By: #### G LUX ####Unless otherwise noted, all testing performed by [address] [phone]: [id number] Director: Melva Escamilla M.D. Segmented Neut % 60.0 % Normal [facility] Comment on above: Performed By: #### G LUX ####Unless otherwise noted, all testing performed by [address] [phone]: [id number] Director: Melva Escamilla M.D. WBC Auto #/vol (Bld) 5.9 K/mcL Normal 3.4-10.6 [facility] Comment on above: Performed By: #### G LUX ####Unless otherwise noted, all testing performed by [address] [phone]: [id number] Director: Melva Escamilla M.D. Comprehensive Metabolic Pane [facility] 12-02-2017 Albumin mass conc 2.7 g/dL Low 3.2-5.2 [facility] Comment on above: Performed By: #### G LUX ####Unless otherwise noted, all testing performed by [address] [phone]: [id number] Director: Melva Escamilla M.D. ALP enzyme act/vol 98 U/L Normal 40-150 [facility] Comment on above: Performed By: #### G LUX ####Unless otherwise noted, all testing performed by [address] [phone]: [id number] Director: Melva Escamilla M.D. ALT enzyme act/vol 22 U/L Normal 14-65 [facility] Comment on above: Result Comment: This test result might be falsely depressed or falsely elevated onsamples drawn from patients taking Sulfasalazine and Sulfapyridine.Venipuncture should occur prior to taking either of these drugs. Performed By: #### G LUX ####Unless otherwise noted, all testing performed by [address] [phone]: [id number] Director: Melva Escamilla M.D. AST enzyme act/vol 17 U/L Normal 0-45 [facility] Comment on above: Result Comment: This test result might be falsely depressed or falsely elevated onsamples drawn from patients taking Sulfasalazine and Sulfapyridine.Venipuncture should occur prior to taking either of these drugs. Performed By: #### G LUX ####Unless otherwise noted, all testing performed by [place] [phone]: [id number] Director: Melva Escamilla M.D. Bilirubin mass conc 0.3 mg/dL Normal 0.3-1.[address] [facility] Comment on above: Performed By: #### G LUX ####Unless otherwise noted, all testing performed by [address]CLIA: [id number] Director: Melva Escamilla M.D. Calcium mass conc 9.2 mg/dL Normal 8.4-10.2 [facility] Comment on above: Performed By: #### G LUX ####Unless otherwise noted, all testing performed by [address]8[address]CLIA: [id number] Director: Melva Escamilla M.D. Chloride molar conc 107 mmol/L Normal 98-[address] [facility] Comment on above: Performed By: #### G LUX ####Unless otherwise noted, all testing performed by [address]8[address]CLIA: [id number] Director: Melva Escamilla M.D. CO2 molar conc 25 mmol/L Normal 21-32 [facility] Comment on above: Performed By: #### G LUX ####Unless otherwise noted, all testing performed by [address] [phone]: [id number] Director: Melva Escamilla M.D. Creatinine mass conc 0.73 mg/dL Normal 0.60-1.20 [facility] Comment on above: Performed By: #### G LUX ####Unless otherwise noted, all testing performed by [address], [place] [phone]: [id number] Director: Melva Escamilla M.D. GFR/1.73 sq M predicted among blacks MDRD vol rate/area (S/P/Bld) mL/min/{1.73_m2} Normal [facility] Comment on above: Result Comment: Afri can Mauritian GFR Calc Performed By: #### G LUX ####Unless otherwise noted, all testing performed by [address] [phone]: [id number] Director: Melva Escamilla M.D. GFR/1.73 sq M predicted among non-blacks MDRD vol rate/area (S/P/Bld) mL/min/{1.73_m2} Normal [facility] Comment on above: Result Comment: Non- [...] ####Unless otherwise noted, all testing performed by [address] [phone]: [id number] Director: Melva Escamilla M.D. Glucose mass conc 132 mg/dL High 70-99 [facility] Comment on above: Result Comment: This test result might be falsely depressed or falsely elevated onsamples drawn from patients taking Sulfasalazine and Sulfapyridine.Venipuncture should occur prior to taking either of these drugs. Performed By: #### G LUX ####Unless otherwise noted, all testing performed by [place] [phone]: [id number] Director: Melva Escamilla M.D. Potassium molar conc 4.0 mmol/L Normal 3.5-5.1 [facility] Comment on above: Performed By: #### G LUX ####Unless otherwise noted, all testing performed by [address]8[address]CLIA: [id number] Director: Melva Escamilla M.D. Protein mass conc 5.7 g/dL Low 6.0-8.0 [facility] Comment on above: Performed By: #### G LUX ####Unless otherwise noted, all testing performed by [place] [phone]: [id number] Director: Melva Escamilla M.D. Sodium molar conc 139 mmol/L Normal 135-145 [facility] Comment on above: Performed By: #### G LUX ####Unless otherwise noted, all testing performed by [place] [phone]: [id number] Director: Melva Escamilla M.D. Urea nitrogen mass conc 22 mg/dL Normal 8-25 [facility] Comment on above: Performed By: #### G LUX ####Unless otherwise noted, all testing performed by [address] [phone]: [id number] Director: Melva Escamilla M.D. Glucose, POCon 12-02-2017 Glucose mass conc 296 mg/dL High 80-115 [facility] Comment on above: Performed By: #### G LUX ####Unless otherwise noted, all testing performed by [address] [phone]: [id number] Director: Melva Escamilla M.D. Glucose mass conc 144 mg/dL High 80-115 [facility] Comment on above: Performed By: #### G LUX ####Unless otherwise noted, all testing performed by [address] [phone]: [id number] Director: Melva Escamilla M.D. Lipid Panelon 12-02-2017 Cholesterol in HDL mass conc 61 mg/dL High 40-59 [facility] Comment on above: Performed By: #### G LUX ####Unless otherwise noted, all testing performed by [address] [phone]: [id number] Director: Melva Escamilla M.D. Cholesterol in LDL mass conc 24 mg/dL Normal 10-150 [facility] Comment on above: Performed By: #### G LUX ####Unless otherwise noted, all testing performed by [address] [phone]: [id number] Director: Melva Escamilla M.D. Cholesterol in VLDL mass conc 23 mg/dL Normal 5-40 [facility] Comment on above: Performed By: #### G LUX ####Unless otherwise noted, all testing performed by [address] [phone]: [id number] Director: Melva Escamilla M.D. Cholesterol mass conc 108 mg/dL Normal 100-199 [facility] Comment on above: Performed By: #### G LUX ####Unless otherwise noted, all testing performed by [place] [phone]: [id number] Director: Melva Escamilla M.D. Cholesterol.total/Cho lesterol in HDL mass ratio 1.8 {ratio} Low 3.2-5.0 [facility] Comment on above: Result Comment: Richard cason Coronary Heart Disease Risk Factor (CHDRF):Average risk= 4.41/2 Average risk= 3.32 times Average risk= 7.1 Performed By: #### G LUX ####Unless otherwise noted, all testing performed by [address] [phone]: [id number] Director: Melva Escamilla M.D. Triglyceride mass conc 114 mg/dL Normal 25-120 [facility] Comment on above: Performed By: #### G LUX ####Unless otherwise noted, all testing performed by [place] [phone]: [id number] Director: Melva Escamilla M.D. TSHon 12-02-2017 Thyrotropin Qn 0.59 uIU/mL Normal 0.320-5.000 [facility] Comment on above: Result Comment: Samp les from patients routinely receiving high dose biotin therapy(100-300 mg/day) may show falsely decreased results. Please correlateclinically. Performed By: #### G LUX ####Unless otherwise noted, all testing performed by [address] [phone]: [id number] Director: Melva Escamilla M.D. Culture, Urineon 08-09-2017 [...] 1 FTrimeth/Sulfa S <= 20 F Normal [facility] Comment on above: Performed By: #### G LUX ####Unless otherwise noted, all testing performed by [address] [phone]: [id number] Director: Melva Escamilla M.D. Urinalysis, Routineon 2017 Bacteria LM.HPF #/area (Urine sed) Rare Normal NS;RARE [facility] Comment on above: Performed By: #### G LUX ####Unless otherwise noted, all testing performed by [address] [phone]: [id number] Director: Melva Escamilla M.D. Bilirubin,Urine Negative Normal NEG;NEGATIV E [facility] Comment on above: Performed By: #### G LUX ####Unless otherwise noted, all testing performed by [address] [phone]: [id number] Director: Melva Escamilla M.D. Blood,Urine Small Abnormal NEG;NEGATIV E [facility] Comment on above: Performed By: #### G LUX ####Unless otherwise noted, all testing performed by [address] [phone]: [id number] Director: Melva Escamilla M.D. Character Clear Normal [facility] Comment on above: Performed By: #### G LUX ####Unless otherwise noted, all testing performed by [address] [phone]: [id number] Director: Melva Escamilla M.D. Color Nom (U) Straw Normal [facility] Comment on above: Result Comment: The specimen was collected in a tube with the additives ethyl paraben,sodium propionate and chlorhexidine preservative. Detection ofurobilinogen and bilirubin maybe decreased due to their instability at RTor when exposed to light. Performed By: #### G LUX ####Unless otherwise noted, all testing performed by [address] [phone]: [id number] Director: Melva Escamilla M.D. Glucose Ql (U) Negative Normal NEG;NEGATIV E [facility] Comment on above: Performed By: #### G LUX ####Unless otherwise noted, all testing performed by [address], [place] [phone]: [id number] Director: Melva Escamilla M.D. Ketone,Urine Negative Normal NEG;NEGATIV E [facility] Comment on above: Performed By: #### G LUX ####Unless otherwise noted, all testing performed by [address] [phone]: [id number] Director: Melva Escamilla M.D. Leuk.Esterase,Urine Moderate Abnormal Negative [facility] Comment on above: Performed By: #### G LUX ####Unless otherwise noted, all testing performed by [address] [phone]: [id number] Director: Melva Escamilla M.D. Nitrite,Urine Negative Normal NEG;NEGATIV E [facility] Comment on above: Performed By: #### G LUX ####Unless otherwise noted, all testing performed by [address] [phone]: [id number] Director: Melva Escamilla M.D. pH Test strip (U) 6.0 [pH] Normal 4.5-8.0 [facility] Comment on above: Performed By: #### G LUX ####Unless otherwise noted, all testing performed by [address] [phone]: [id number] Director: Melva Escamilla M.D. Protein,Urine Negative Normal NEG;NEGATIV E [facility] Comment on above: Performed By: #### G LUX ####Unless otherwise noted, all testing performed by [address] [phone]: [id number] Director: Melva Escamilla M.D. RBC,Urine 2 /HPF Normal 0-5 [facility] Comment on above: Performed By: #### G LUX ####Unless otherwise noted, all testing performed by [place] [phone]: [id number] Director: Melva Escamilla M.D. Specific [place],Urine 1.005 Normal 1.003-1.029 [facility] Comment on above: Performed By: #### G LUX ####Unless otherwise noted, all testing performed by [address]8[address]CLIA: [id number] Director: Melva Escamilla M.D. Squamous Epithelial 1 /HPF Normal 0-[address] [facility] Comment on above: Performed By: #### G LUX ####Unless otherwise noted, all testing performed by [address]8[address]CLIA: [id number] Director: Melva Escamilla M.D. Urobilinogen,Urine < 2.0 Normal <2 [facility] Comment on above: Performed By: #### G LUX ####Unless otherwise noted, all testing performed by [address] [phone]: [id number] Director: Melva Escamilla M.D. WBC,Urine 13 /HPF High 0-5 [facility] Comment on above: Performed By: #### G LUX ####Unless otherwise noted, all testing performed by [address] [phone]: [id number] Director: Melva Escamilla M.D. Basic Metabolic Panelon 04-0 Calcium mass conc 8.7 mg/dL Normal 8.4-10.2 [facility] Comment on above: Performed By: #### G LUX ####Unless otherwise noted, all testing performed by [address] [phone]: [id number] Director: Melva Escamilla M.D. Chloride molar conc 109 mmol/L High 98-[address] [facility] Comment on above: Performed By: #### G LUX ####Unless otherwise noted, all testing performed by [address] [phone]: [id number] Director: Melva Escamilla M.D. CO2 molar conc 26 mmol/L Normal 21-32 [facility] Comment on above: Performed By: #### G LUX ####Unless otherwise noted, all testing performed by [address] [phone]: [id number] Director: Melva Escamilla M.D. Creatinine mass conc 0.70 mg/dL Normal 0.60-1.20 [facility] Comment on above: Performed By: #### G LUX ####Unless otherwise noted, all testing performed by [address] [phone]: [id number] Director: Melva Escamilla M.D. GFR/1.73 sq M predicted among blacks MDRD vol rate/area (S/P/Bld) mL/min/{1.73_m2} Normal [facility] Comment on above: Result Comment: Afri can Mauritian GFR Calc Performed By: #### G LUX ####Unless otherwise noted, all testing performed by [address] [phone]: [id number] Director: Melva Escamilla M.D. GFR/1.73 sq M predicted among non-blacks MDRD vol rate/area (S/P/Bld) mL/min/{1.73_m2} Normal [facility] Comment on above: Result Comment: Non- [...] ####Unless otherwise noted, all testing performed by [address] [phone]: [id number] Director: Melva Escamilla M.D. Glucose mass conc 206 mg/dL High 70-99 [facility] Comment on above: Result Comment: This test result might be falsely depressed or falsely elevated onsamples drawn from patients taking Sulfasalazine and Sulfapyridine.Venipuncture should occur prior to taking either of these drugs. Performed By: #### G LUX ####Unless otherwise noted, all testing performed by [address] [phone]: [id number] Director: Melva Escamilla M.D. Potassium molar conc 3.5 mmol/L Normal 3.5-5.1 [facility] Comment on above: Performed By: #### G LUX ####Unless otherwise noted, all testing performed by [address] [phone]: [id number] Director: Melva Escamilla M.D. Sodium molar conc 141 mmol/L Normal 135-145 [facility] Comment on above: Performed By: #### G LUX ####Unless otherwise noted, all testing performed by [address] [phone]: [id number] Director: Melva Escamilla M.D. Urea nitrogen mass conc 17 mg/dL Normal 8-25 [facility] Comment on above: Performed By: #### G LUX ####Unless otherwise noted, all testing performed by [address] [phone]: [id number] Director: Melva Escamilla M.D. Glucose, POCon 07-28-2017 Glucose mass conc 227 mg/dL High 80-115 [facility] Comment on above: Performed By: #### G LUX ####Unless otherwise noted, all testing performed by [address] [phone]: [id number] Director: Melva Escamilla M.D. Glucose mass conc 34 mg/dL Critically low 80-115 [facility] Comment on above: Performed By: #### G LUX ####Unless otherwise noted, all testing performed by [address] [phone]: [id number] Director: Melva Escamilla M.D. APTTon 07-27-2017 aPTT 25 s Normal 23.0-34.0 [facility] Comment on above: Result Comment: Hari guajardo therapeutic range for PTT is 68-104 sec. Performed By: #### G LUX ####Unless otherwise noted, all testing performed by [place] [phone]: [id number] Director: Melva Escamilla M.D. Basic Metabolic Panelon Calcium 8.8 mg/dL Normal 8.4-10.2 [facility] Comment on above: Performed By: #### G LUX ####Unless otherwise noted, all testing performed by [place] [phone]: [id number] Director: Melva Escamilla M.D. Chloride 110 mmol/L High 98-108 [facility] Comment on above: Performed By: #### G LUX ####Unless otherwise noted, all testing performed by [place] [phone]: [id number] Director: Melva Escamilla M.D. CO2 24 mmol/L Normal 21-32 [facility] Comment on above: Performed By: #### G LUX ####Unless otherwise noted, all testing performed by [place] [phone]: [id number] Director: Melva Escamilla M.D. Creatinine 0.88 mg/dL Normal 0.60-1.20 [facility] Comment on above: Performed By: #### G LUX ####Unless otherwise noted, all testing performed by [address], [place] [phone]: [id number] Director: Melva Escamilla M.D. eGFR (black) mL/min/{1.73_m2} Normal [facility] Comment on above: Result Comment: Afri can Mauritian GFR Calc Performed By: #### G LUX ####Unless otherwise noted, all testing performed by [address] [phone]: [id number] Director: Melva Escamilla M.D. eGFR (non-black) mL/min/{1.73_m2} Normal [facility] Comment on above: Result Comment: Non- [...] ####Unless otherwise noted, all testing performed by [address] [phone]: [id number] Director: Melva Escamilla M.D. Glucose 301 mg/dL High 70 - 99 mg/dL [facility] Glucose mass conc 301 mg/dL High 70-99 [facility] Comment on above: Result Comment: This test result might be falsely depressed or falsely elevated onsamples drawn from patients taking Sulfasalazine and Sulfapyridine.Venipuncture should occur prior to taking either of these drugs. Performed By: #### G LUX ####Unless otherwise noted, all testing performed by [address] [phone]: [id number] Director: Melva Escamilla M.D. Interpretation and review of laboratory results Abnormal Invalid Interpretation Code [facility] Potassium 3.5 mmol/L Normal 3.5-5.1 [facility] Comment on above: Performed By: #### G LUX ####Unless otherwise noted, all testing performed by [address] [phone]: [id number] Director: Melva Escamilla M.D. Sodium 139 mmol/L Normal 135-145 [facility] Comment on above: Performed By: #### G LUX ####Unless otherwise noted, all testing performed by [address] [phone]: [id number] Director: Melva Escamilla M.D. Urea nitrogen 22 mg/dL Normal 8-25 [facility] Comment on above: Performed By: #### G LUX ####Unless otherwise noted, all testing performed by [address] [phone]: [id number] Director: Melva Escamilla M.D. CBCon 07-27-2017 Erythrocytes (RBC) 3.89 M/mcL Invalid Interpretation Code 3.7 - 5.0 [facility] Hematocrit (HCT) 34.8 % Normal 34.4-44.8 [facility] Comment on above: Performed By: #### G LUX ####Unless otherwise noted, all testing performed by [address] [phone]: [id number] Director: Melva Escamilla M.D. Hemoglobin (HGB) 11.1 g/dL Low 11.6-15.4 [facility] Comment on above: Performed By: #### G LUX ####Unless otherwise noted, all testing performed by [address], [place] [phone]: [id number] Director: Melva Escamilla M.D. MCH 28.7 pg Normal 27.9-33.9 [facility] Comment on above: Performed By: #### G LUX ####Unless otherwise noted, all testing performed by [address] [phone]: [id number] Director: Melva Escamilla M.D. MCHC 32.0 g/dL Low 33.1-35.1 [facility] Comment on above: Performed By: #### G LUX ####Unless otherwise noted, all testing performed by [address] [phone]: [id number] Director: Melva Escamilla M.D. MCV 89.5 fL Normal 82.6-98.9 [facility] Comment on above: Performed By: #### G LUX ####Unless otherwise noted, all testing performed by [address] [phone]: [id number] Director: Melva Escamilla M.D. Platelet mean volume (PMV) 9 fL Invalid Interpretation Code 7.0 - 10.6 [facility] Platelets 225 K/mcL Invalid Interpretation Code 162 - 402 [facility] RDW-CA 14.6 % High 10.0-14.4 [facility] Comment on above: Performed By: #### G LUX ####Unless otherwise noted, all testing performed by [address] [phone]: [id number] Director: Melva Escamilla M.D. WBC (Leukocytes) 5.7 K/mcL Invalid Interpretation Code 3.4 - 10.6 [facility] CBC w/o Diffon 07-27-2017 Platelet mean volume Auto Entitic volume (Bld) 9.0 fL Normal 7.0-10.6 [facility] Comment on above: Performed By: #### G LUX ####Unless otherwise noted, all testing performed by [address] [phone]: [id number] Director: Melva Escamilla M.D. Platelets Auto #/vol (Bld) 225 K/mcL Normal 162-402 [facility] Comment on above: Performed By: #### G LUX ####Unless otherwise noted, all testing performed by [address] [phone]: [id number] Director: Melva Escamilla M.D. RBC Auto #/vol (Bld) 3.89 M/mcL Normal 3.7-5.0 [facility] Comment on above: Performed By: #### G LUX ####Unless otherwise noted, all testing performed by [address] [phone]: [id number] Director: Melva Escamilla M.D. WBC Auto #/vol (Bld) 5.7 K/mcL Normal 3.4-10.6 [facility] Comment on above: Performed By: #### G LUX ####Unless otherwise noted, all testing performed by [address] [phone]: [id number] Director: Melva Escamilla M.D. CBC with Diffon 07-27-2017 Basophils Auto #/vol (Bld) 0.0 K/mcL Normal 0-0.2 [facility] Comment on above: Performed By: #### G LUX ####Unless otherwise noted, all testing performed by [address] [phone]: [id number] Director: Melva Escamilla M.D. Basophils/100 WBC Auto (Bld) 0.8 % Normal [facility] Comment on above: Performed By: #### G LUX ####Unless otherwise noted, all testing performed by [address]8[address]CLIA: [id number] Director: Melva Escamilla M.D. Eosinophils Auto #/vol (Bld) 0.0 K/mcL Normal 0-0.5 [facility] Comment on above: Performed By: #### G LUX ####Unless otherwise noted, all testing performed by [address]8[address]CLIA: [id number] Director: Melva Escamilla M.D. Eosinophils/100 WBC Auto (Bld) 0.1 % Normal [facility] Comment on above: Performed By: #### G LUX ####Unless otherwise noted, all testing performed by [place] [phone]: [id number] Director: Melva Escamilla M.D. Erythrocyte distribution width Auto Ratio (RBC) 14.3 % Normal 10.0-14.4 [facility] Comment on above: Performed By: #### G LUX ####Unless otherwise noted, all testing performed by [place] [phone]: [id number] Director: Melva Escamilla M.D. Hematocrit Auto Volume Fraction (Bld) 38.7 % Normal 34.4-44.8 [facility] Comment on above: Performed By: #### G LUX ####Unless otherwise noted, all testing performed by [address] [phone]: [id number] Director: Melva Escamilla M.D. Hemoglobin mass conc (Bld) 12.5 g/dL Normal 11.6-15.4 [facility] Comment on above: Performed By: #### G LUX ####Unless otherwise noted, all testing performed by [place] [phone]: [id number] Director: Melva Escamilla M.D. Lymphocytes Auto #/vol (Bld) 0.3 K/mcL Low 1.0-3.7 [facility] Comment on above: Performed By: #### G LUX ####Unless otherwise noted, all testing performed by [address] [phone]: [id number] Director: Melva Escamilla M.D. Lymphocytes/100 WBC Auto (Bld) 6.8 % Normal [facility] Comment on above: Performed By: #### G LUX ####Unless otherwise noted, all testing performed by [address] [phone]: [id number] Director: Melva Escamilla M.D. MCH Auto Entitic mass (RBC) 28.9 pg Normal 27.9-33.9 [facility] Comment on above: Performed By: #### G LUX ####Unless otherwise noted, all testing performed by [address] [phone]: [id number] Director: Melva Escamilla M.D. MCHC Auto mass conc (RBC) 32.2 g/dL Low 33.1-35.1 [facility] Comment on above: Performed By: #### G LUX ####Unless otherwise noted, all testing performed by [address] [phone]: [id number] Director: Melva Escamilla M.D. MCV Auto Entitic volume (RBC) 89.6 fL Normal 82.6-98.9 [facility] Comment on above: Performed By: #### G LUX ####Unless otherwise noted, all testing performed by [address] [phone]: [id number] Director: Melva Escamilla M.D. Monocytes Auto #/vol (Bld) 0.1 K/mcL Normal 0.1-0.6 [facility] Comment on above: Performed By: #### G LUX ####Unless otherwise noted, all testing performed by [address] [phone]: [id number] Director: Melva Escamilla M.D. Monocytes/100 WBC Auto (Bld) 1.4 % Normal [facility] Comment on above: Performed By: #### G LUX ####Unless otherwise noted, all testing performed by [address] [phone]: [id number] Director: Melva Escamilla M.D. Neutrophils Auto #/vol (Bld) 3.9 K/mcL Normal 1.2-6.9 [facility] Comment on above: Performed By: #### G LUX ####Unless otherwise noted, all testing performed by [address] [phone]: [id number] Director: Melva Escamilla M.D. Platelet mean volume Auto Entitic volume (Bld) 9.4 fL Normal 7.0-10.6 [facility] Comment on above: Performed By: #### G LUX ####Unless otherwise noted, all testing performed by [address]8509CLIA: [id number] Director: Melva Escamilla M.D. Platelets Auto #/vol (Bld) 263 K/mcL Normal 162-402 [facility] Comment on above: Performed By: #### G LUX ####Unless otherwise noted, all testing performed by [address] [phone]: [id number] Director: Melva Escamilla M.D. RBC Auto #/vol (Bld) 4.32 M/mcL Normal 3.7-5.0 [facility] Comment on above: Performed By: #### G LUX ####Unless otherwise noted, all testing performed by [address] [phone]: [id number] Director: Melva Escamilal M.D. Segmented Neut % 90.9 % Normal [facility] Comment on above: Performed By: #### G LUX ####Unless otherwise noted, all testing performed by [address] [phone]: [id number] Director: Melva Escamilla M.D. WBC Auto #/vol (Bld) 4.3 K/mcL Normal 3.4-10.6 [facility] Comment on above: Performed By: #### G LUX ####Unless otherwise noted, all testing performed by [address] [phone]: [id number] Director: Melva Escamilla M.D. CHEMG (Basic Metabolic and M g)on 07-27-2017 Calcium mass conc 9.2 mg/dL Normal 8.4-10.2 [facility] Comment on above: Performed By: #### G LUX ####Unless otherwise noted, all testing performed by [address] [phone]: [id number] Director: Melva Escamilla M.D. Chloride molar conc 108 mmol/L Normal 98-[address] [facility] Comment on above: Performed By: #### G LUX ####Unless otherwise noted, all testing performed by [address] [phone]: [id number] Director: Melva Escamilla M.D. CO2 molar conc 21 mmol/L Normal 21-32 [facility] Comment on above: Performed By: #### G LUX ####Unless otherwise noted, all testing performed by [address] [phone]: [id number] Director: Melva Escamilla M.D. Creatinine mass conc 0.89 mg/dL Normal 0.60-1.20 [facility] Comment on above: Performed By: #### G LUX ####Unless otherwise noted, all testing performed by [address] [phone]: [id number] Director: Melva Escamilla M.D. GFR/1.73 sq M predicted among blacks MDRD vol rate/area (S/P/Bld) mL/min/{1.73_m2} Normal [facility] Comment on above: Result Comment: Afri can Mauritian GFR Calc Performed By: #### G LUX ####Unless otherwise noted, all testing performed by [address] [phone]: [id number] Director: Melva Escamilla M.D. GFR/1.73 sq M predicted among non-blacks MDRD vol rate/area (S/P/Bld) mL/min/{1.73_m2} Normal [facility] Comment on above: Result Comment: Non- [...] ####Unless otherwise noted, all testing performed by [address] [phone]: [id number] Director: Melva Escamilla M.D. Glucose mass conc 375 mg/dL High 70-99 [facility] Comment on above: Result Comment: This test result might be falsely depressed or falsely elevated onsamples drawn from patients taking Sulfasalazine and Sulfapyridine.Venipuncture should occur prior to taking either of these drugs. Performed By: #### G LUX ####Unless otherwise noted, all testing performed by [address] [phone]: [id number] Director: Melva Escamilla M.D. Magnesium mass conc 2.0 mg/dL Normal 1.6-2.[address] [facility] Comment on above: Performed By: #### G LUX ####Unless otherwise noted, all testing performed by [address]8[address]CLIA: [id number] Director: Melva Escamilla M.D. Potassium molar conc 4.4 mmol/L Normal 3.5-5.1 [facility] Comment on above: Performed By: #### G LUX ####Unless otherwise noted, all testing performed by [address]8509CLIA: [id number] Director: Melva Escamilla M.D. Sodium molar conc 139 mmol/L Normal 135-145 [facility] Comment on above: Performed By: #### G LUX ####Unless otherwise noted, all testing performed by [place] [phone]: [id number] Director: Melva Escamilla M.D. Urea nitrogen mass conc 18 mg/dL Normal 8-25 [facility] Comment on above: Performed By: #### G LUX ####Unless otherwise noted, all testing performed by [place] [phone]: [id number] Director: Melva Escamilla M.D. CHEST (ONE VIEW ONLY)on Protein mass conc Final ReportAccession No: [id number] Performed: Jul 27 2017 12:05AMExamination: CHEST [...] ZACH JOYCE D.O.Trans: sfalk : cc: Normal [facility] CT CHEST PE PROTOCOLon 07-27 Protein mass conc Final ReportAccession No: [id number] Performed: Jul 27 2017 1:45AMExamination: CT [...] pulmonary arterialhypertension.Inte rpreting Physician: CARLITO MURO M.D.Trans: sfak : cc: Normal [facility] Cardiac Troponin-Ion 018 Troponin I.cardiac mass conc No Biomarker evidence of myocardial injury within the past 14 hours. Normal [facility] Comment on above: Performed By: #### G LUX ####Unless otherwise noted, all testing performed by [address] [phone]: [id number] Director: Melva Escamilla M.D. Troponin I.cardiac mass conc ng/mL Normal < 45.0 [facility] Comment on above: Result Comment: Elev ation of troponin indicates some degree of myocardial necrosis butunless there is a significant rise and/or fall (if elevated) identified,it unlikely that an acute event has taken placeSamples from patients routinely receiving high dose biotin therapy(100-300 mg/day) may show falsely decreased results. Please correlateclinically. Performed By: #### G LUX ####Unless otherwise noted, all testing performed by [address] [phone]: [id number] Director: Melva Escamilla M.D. Troponin I.cardiac mass conc ng/mL Normal < 45.0 [facility] Comment on above: Result Comment: Elev ation of troponin indicates some degree of myocardial necrosis butunless there is a significant rise and/or fall (if elevated) identified,it unlikely that an acute event has taken placeSamples from patients routinely receiving high dose biotin therapy(100-300 mg/day) may show falsely decreased results. Please correlateclinically. Performed By: #### G LUX ####Unless otherwise noted, all testing performed by [address] [phone]: [id number] Director: Melva Escamilla M.D. Troponin I.cardiac mass conc No Biomarker evidence of myocardial injury within the past 14 hours. Normal [facility] Comment on above: Performed By: #### G LUX ####Unless otherwise noted, all testing performed by [address] [phone]: [id number] Director: Melva Escamilla M.D. D-Dimeron 07-27-2017 D-Dimer 0.63 mcg/ml (FEU) High < .5 [facility] Comment on above: Result Comment: This test is intended for use in conjunction with a clinical pretestprobability (PTP) assessment model to exclude pulmonary embolism (PE) anddeep vein thrombosis (DVT) in outpatients suspected of PE or DVT. Performed By: #### G LUX ####Unless otherwise noted, all testing performed by [address] [phone]: [id number] Director: Melva Escamilla M.D. D-Dimer, Quantitativeon D-Dimer 0.63 mcg/ml (FEU) High <0.5 [facility] Interpretation and review of laboratory results Abnormal Invalid Interpretation Code [facility] Cardiac Troponin-Ion Troponin I ng/mL Normal < 45 [facility] Comment on above: Result Comment: Elev ation of troponin indicates some degree of myocardial necrosis butunless there is a significant rise and/or fall (if elevated) identified,it unlikely that an acute event has taken placeSamples from patients routinely receiving high dose biotin therapy(100-300 mg/day) may show falsely decreased results. Please correlateclinically. Performed By: #### G LUX ####Unless otherwise noted, all testing performed by [place] [phone]: [id number] Director: Melva Escamilla M.D. Glucose, POCon 07-27-2017 Glucose mass conc 322 mg/dL High [address] [place] [address] Comment on above: Performed By: #### G LUX ####Unless otherwise noted, all testing performed by [address]8[address]CLIA: [id number] Director: Melva Escamilla M.D. Glucose mass conc 245 mg/dL High [address] [place] [address] Comment on above: Performed By: #### G LUX ####Unless otherwise noted, all testing performed by [address] [phone]: [id number] Director: Melva Escamilla M.D. Glucose mass conc 347 mg/dL [address] Comment on above: Performed By: #### G LUX ####Unless otherwise noted, all testing performed by [address]8509CLIA: [id number] Director: Melva Escamilla M.D. Glucose mass conc 310 mg/dL High [address] [place] [address] Comment on above: Performed By: #### G LUX ####Unless otherwise noted, all testing performed by [address] [phone]: [id number] Director: Melva Escamilla M.D. Glucose mass conc 147 mg/dL High 80-115 [facility] Comment on above: Performed By: #### G LUX ####Unless otherwise noted, all testing performed by [address] [phone]: [id number] Director: Melva Escamilla M.D. Hepatic Function Panelon Albumin mass conc 3.1 g/dL Low 3.2-5.2 [facility] Comment on above: Performed By: #### G LUX ####Unless otherwise noted, all testing performed by [address] [phone]: [id number] Director: Melva Escamilla M.D. ALP enzyme act/vol 133 U/L Normal 40-150 [facility] Comment on above: Performed By: #### G LUX ####Unless otherwise noted, all testing performed by [address] [phone]: [id number] Director: Melva Escamilla M.D. ALT enzyme act/vol 28 U/L Normal 14-65 [facility] Comment on above: Result Comment: This test result might be falsely depressed or falsely elevated onsamples drawn from patients taking Sulfasalazine and Sulfapyridine.Venipuncture should occur prior to taking either of these drugs. Performed By: #### G LUX ####Unless otherwise noted, all testing performed by [address] [phone]: [id number] Director: Melva Escamilla M.D. AST enzyme act/vol 23 U/L Normal 0-45 [facility] Comment on above: Result Comment: This test result might be falsely depressed or falsely elevated onsamples drawn from patients taking Sulfasalazine and Sulfapyridine.Venipuncture should occur prior to taking either of these drugs. Performed By: #### G LUX ####Unless otherwise noted, all testing performed by [address] [phone]: [id number] Director: Melva Escamilla M.D. Bilirubin mass conc 0.2 mg/dL Low 0.3-1.[address] [facility] Comment on above: Performed By: #### G LUX ####Unless otherwise noted, all testing performed by [address] [phone]: [id number] Director: Melva Escamilla M.D. Bilirubin.direct mass conc mg/dL Normal 0.0-0.4 [facility] Comment on above: Performed By: #### G LUX ####Unless otherwise noted, all testing performed by [address] [phone]: [id number] Director: Melva Escamilla M.D. Protein mass conc 6.3 g/dL Normal 6.0-8.0 [facility] Comment on above: Performed By: #### G LUX ####Unless otherwise noted, all testing performed by [address] [phone]: [id number] Director: Melva Escamilla M.D. PT/INRon 07-27-2017 Coagulation factor induced.INR assay in platelet poor plasma 0.96 {INR} Normal [facility] Comment on above: Result Comment: The [place] [employer] recommended therapeutic rangefor Warfarin (Coumadin) therapy goals:PROPHYLAXIS/TREATMENT of:INRVenous Thrombosis, Pulmonary Embolism2.0-3.0Prevention of VTE (Orthopedic Surgery)2.0-3.0Atrial Fibrillation2.0-3.0Myocardial Infarction2.0-3.0Mechanical Prosthetic Heart Valves (Aortic position)2.0-3.0Mechanical Prosthetic Heart Valves (Mitral Position)2.5-3.5American College of Chest [employer]icians evidence-based clinical practiceguidelines. CHEST. 2012 (9th ed) Performed By: #### G LUX ####Unless otherwise noted, all testing performed by [address] [phone]: [id number] Director: Melva Escamilla M.D. Coagulation tissue factor induced in platelet poor plasma 12.5 s Normal 11.8-14.3 [facility] Comment on above: Performed By: #### G LUX ####Unless otherwise noted, all testing performed by [address] [phone]: [id number] Director: Melva Escamilla M.D. Culture, Urineon 07-24-2017 Culture, Urine Test Name: Culture, Urine Culture Status: Final Culture Report: No Growth - Day 2 Micro Source: Urine - clean catch Normal [facility] Comment on above: Performed By: #### G LUX ####Unless otherwise noted, all testing performed by [address] [phone]: [id number] Director: Melva Escamilla M.D. Urinalysison 07-24-2017 Bilirubin, Urine Negative Normal NEG;NEGATIV E [facility] Comment on above: Performed By: #### G LUX ####Unless otherwise noted, all testing performed by [address] [phone]: [id number] Director: Melva Escamilla M.D. Blood, Urine Negative Normal NEG;NEGATIV E [facility] Comment on above: Performed By: #### G LUX ####Unless otherwise noted, all testing performed by [address] [phone]: [id number] Director: Melva Escamilla M.D. Interpretation and review of laboratory results Abnormal Invalid Interpretation Code [facility] Nitrite, Urine Negative Normal NEG;NEGATIV E [facility] Comment on above: Performed By: #### G LUX ####Unless otherwise noted, all testing performed by [address] [phone]: [id number] Director: Melva Escamilla M.D. Protein, Urine Negative Normal NEG;NEGATIV E [facility] Comment on above: Performed By: #### G LUX ####Unless otherwise noted, all testing performed by [address] [phone]: [id number] Director: Melva Escamilla M.D. RBCs, Urine 1 /HPF Invalid Interpretation Code 0 - 5 [facility] Squamous Epithelial < 1 Normal 0-40 [facility] Comment on above: Performed By: #### G LUX ####Unless otherwise noted, all testing performed by [address] [phone]: [id number] Director: Melva Escamilla M.D. Urine, character Clear Invalid Interpretation Code [facility] Urine, color Yellow Normal [facility] Comment on above: Result Comment: The specimen was collected in a tube with the additives ethyl paraben,sodium propionate and chlorhexidine preservative. Detection ofurobilinogen and bilirubin maybe decreased due to their instability at RTor when exposed to light. Performed By: #### G LUX ####Unless otherwise noted, all testing performed by [address] [phone]: [id number] Director: Melva Escamilla M.D. Urine, glucose presence Negative Normal NEG;NEGATIV E [facility] Comment on above: Performed By: #### G LUX ####Unless otherwise noted, all testing performed by [address] [phone]: [id number] Director: Melva Escamilla M.D. Urine, ketones presence Negative Invalid Interpretation Code NEG;NEGATIV E mg/dL [facility] Urine, leukocyte esterase presence Negative Invalid Interpretation Code Negative [facility] Urine, pH 6.0 [pH] Normal 4.5-8.0 [facility] Comment on above: Performed By: #### G LUX ####Unless otherwise noted, all testing performed by [address] [phone]: [id number] Director: Melva Escamilla M.D. Urine, specific gravity 1.024 1 Invalid Interpretation Code 1.003 - 1.029 [facility] Urobilinogen, Urine 2.0 mg/dL High <2 [facility] Comment on above: Performed By: #### G LUX ####Unless otherwise noted, all testing performed by [address] [phone]: [id number] Director: Melva Escamilla M.D. WBCs, Urine < 1 Invalid Interpretation Code 0 - 5 /HPF [facility] Urinalysis, Routineon 2017 Character Clear Normal [facility] Comment on above: Performed By: #### G LUX ####Unless otherwise noted, all testing performed by [address] [phone]: [id number] Director: Melva Escamilla M.D. Ketone,Urine Negative Normal NEG;NEGATIV E [facility] Comment on above: Performed By: #### G LUX ####Unless otherwise noted, all testing performed by [place] [phone]: [id number] Director: Melva Escamilla M.D. Leuk.Esterase,Urine Negative Normal Negative [facility] Comment on above: Performed By: #### G LUX ####Unless otherwise noted, all testing performed by [address] [phone]: [id number] Director: Melva Escamilla M.D. RBC,Urine 1 /HPF Normal 0-5 [facility] Comment on above: Performed By: #### G LUX ####Unless otherwise noted, all testing performed by [address] [phone]: [id number] Director: Melva Escamilla M.D. Specific [place],Urine 1.024 Normal 1.003-1.029 [facility] Comment on above: Performed By: #### G LUX ####Unless otherwise noted, all testing performed by [address] [phone]: [id number] Director: Melva Escamilla M.D. WBC LM.HPF #/area (Urine sed) /[HPF] Normal 0-5 [facility] Comment on above: Performed By: #### G LUX ####Unless otherwise noted, all testing performed by [address] [phone]: [id number] Director: Melva Escamilla M.D. Hepatic Function Panelon Alanine aminotransferase (ALT) 41 U/L Normal 14-65 [facility] Comment on above: Result Comment: This test result might be falsely depressed or falsely elevated onsamples drawn from patients taking Sulfasalazine and Sulfapyridine.Venipuncture should occur prior to taking either of these drugs. Performed By: #### G LUX ####Unless otherwise noted, all testing performed by [address] [phone]: [id number] Director: Melva Escamilla M.D. Albumin 2.9 g/dL Low 3.2-5.2 [facility] Comment on above: Performed By: #### G LUX ####Unless otherwise noted, all testing performed by [address] [phone]: [id number] Director: Melva Escamilla M.D. Alkaline phosphatase (ALP) 121 U/L Normal 40-150 [facility] Comment on above: Performed By: #### G LUX ####Unless otherwise noted, all testing performed by [address] [phone]: [id number] Director: Melva Escamilla M.D. Aspartate aminotransferase (AST) 27 U/L Normal 0-45 [facility] Comment on above: Result Comment: This test result might be falsely depressed or falsely elevated onsamples drawn from patients taking Sulfasalazine and Sulfapyridine.Venipuncture should occur prior to taking either of these drugs. Performed By: #### G LUX ####Unless otherwise noted, all testing performed by [address] [phone]: [id number] Director: Melva Escamilla M.D. Bilirubin (total) mg/dL Invalid Interpretation Code 0 - 0.4 mg/dL [facility] Bilirubin mass conc 0.2 mg/dL Low 0.3-1.[address] [facility] Comment on above: Performed By: #### G LUX ####Unless otherwise noted, all testing performed by [address] [phone]: [id number] Director: Melva Escamilla M.D. Bilirubin.direct mass conc mg/dL Normal 0.0-0.4 [facility] Comment on above: Performed By: #### G LUX ####Unless otherwise noted, all testing performed by [address] [phone]: [id number] Director: Melva Escamilla M.D. Interpretation and review of laboratory results Abnormal Invalid Interpretation Code [facility] Protein 5.9 g/dL Low 6.0-8.0 [facility] Comment on above: Performed By: #### G LUX ####Unless otherwise noted, all testing performed by [address] [phone]: [id number] Director: Melva Escamilla M.D. Urine, bilirubin presence 0.2 mg/dL Low 0.3 - 1.2 mg/dL [facility] Glucose, POCon 07-10-2017 Glucose mass conc 382 mg/dL High [address] [place] [address] Comment on above: Performed By: #### G LUX ####Unless otherwise noted, all testing performed by [address] [phone]: [id number] Director: Melva Escamilla M.D. Glucose mass conc 120 mg/dL High [address] [place] [address] Comment on above: Performed By: #### G LUX ####Unless otherwise noted, all testing performed by [place] [phone]: [id number] Director: Melva Escamilla M.D. Glucose, POCon 07-09-2017 Glucose mass conc 95 mg/dL Normal [address] Comment on above: Performed By: #### G LUX ####Unless otherwise noted, all testing performed by [address] [phone]: [id number] Director: Melva Escamilla M.D. Glucose mass conc 218 mg/dL High [address] Comment on above: Performed By: #### G LUX ####Unless otherwise noted, all testing performed by [address] [phone]: [id number] Director: Melva Escamilla M.D. Glucose mass conc 227 mg/dL High [address] Comment on above: Performed By: #### L IPID, TSH ####Unless otherwise noted, all testing performed by [place] [phone]: [id number] Director: Melva Escamilla M.D. Glucose mass conc 139 mg/dL High [address] [place] [address] Comment on above: Performed By: #### L IPID, TSH ####Unless otherwise noted, all testing performed by [address]8509CLIA: [id number] Director: Melva Escamilla M.D. Glucose, POCon 07-08-2017 Glucose mass conc 122 mg/dL [address] Comment on above: Performed By: #### L IPID, TSH ####Unless otherwise noted, all testing performed by [address]8509CLIA: [id number] Director: Melva Escamilla M.D. Glucose mass conc 212 mg/dL [address] Comment on above: Performed By: #### L IPID, TSH ####Unless otherwise noted, all testing performed by [address] [phone]: [id number] Director: Melva Escamilla M.D. Glucose mass conc 278 mg/dL [address] Comment on above: Performed By: #### L IPID, TSH ####Unless otherwise noted, all testing performed by [place] [id number]: [id number] Director: Melva Escamilla M.D. Glucose mass conc 186 mg/dL High [address] [place] [address] Comment on above: Performed By: #### L IPID, TSH ####Unless otherwise noted, all testing performed by [address]8509CLIA: [id number] Director: Melva Escamilla M.D. Glucose, POCon 07-07-2017 Glucose mass conc 223 mg/dL High [address] [place] [address] Comment on above: Performed By: #### L IPID, TSH ####Unless otherwise noted, all testing performed by [address]8509CLIA: [id number] Director: Melva Escamilla M.D. Glucose mass conc 141 mg/dL High [address] Comment on above: Performed By: #### L IPID, TSH ####Unless otherwise noted, all testing performed by [address] [phone]: [id number] Director: Melva Escamilla M.D. Glucose mass conc 358 mg/dL High [address] [place] [address] Comment on above: Performed By: #### L IPID, TSH ####Unless otherwise noted, all testing performed by [address]8509CLIA: [id number] Director: Melva Escamilla M.D. Glucose mass conc 112 mg/dL Normal [address] [place] [address] Comment on above: Performed By: #### L IPID, TSH ####Unless otherwise noted, all testing performed by [address] [phone]: [id number] Director: Melva Escamilla M.D. Glucose, POCon 07-06-2017 Glucose mass conc 228 mg/dL High [address] Comment on above: Performed By: #### L IPID, TSH ####Unless otherwise noted, all testing performed by [place] [id number]: [id number] Director: Melva Escamilla M.D. Glucose mass conc 126 mg/dL High [address] Comment on above: Performed By: #### L IPID, TSH ####Unless otherwise noted, all testing performed by [address] [phone]: [id number] Director: Melva Escamilla M.D. Glucose mass conc 358 mg/dL High [address] Comment on above: Performed By: #### L IPID, TSH ####Unless otherwise noted, all testing performed by [phone]: [id number] Director: Melva Escamilla M.D. Glucose mass conc 120 mg/dL High [address] Comment on above: Performed By: #### L IPID, TSH ####Unless otherwise noted, all testing performed by [address] [phone]: [id number] Director: Melva Escamilla M.D. Renal Function Panelon 07-06 Albumin mass conc 2.9 g/dL Low 3.2-5.2 [facility] Comment on above: Performed By: #### L IPID, TSH ####Unless otherwise noted, all testing performed by [place] [phone]: [id number] Director: Melva Escamilla M.D. Calcium mass conc 9.3 mg/dL Normal 8.4-10.2 [facility] Comment on above: Performed By: #### L IPID, TSH ####Unless otherwise noted, all testing performed by [place] [id number]: [id number] Director: Melva Escamilla M.D. Chloride molar conc 106 mmol/L Normal 98-[address] [facility] Comment on above: Performed By: #### L IPID, TSH ####Unless otherwise noted, all testing performed by [place] [id number]: [id number] Director: Melva Escamilla M.D. CO2 molar conc 22 mmol/L Normal 21-32 [facility] Comment on above: Performed By: #### L IPID, TSH ####Unless otherwise noted, all testing performed by [place] [phone]: [id number] Director: Melva Escamilla M.D. Creatinine mass conc 0.92 mg/dL Normal 0.60-1.20 [facility] Comment on above: Performed By: #### L IPID, TSH ####Unless otherwise noted, all testing performed by [place] [address], [place] [phone]: [id number] Director: Melva Escamilla M.D. GFR/1.73 sq M predicted among blacks MDRD vol rate/area (S/P/Bld) mL/min/{1.73_m2} Normal [facility] Comment on above: Result Comment: Afri can [place] GFR Calc Performed By: #### L IPID, TSH ####Unless otherwise noted, all testing performed by [address], [place] [phone]: [id number] Director: Melva Escamilla M.D. GFR/1.73 sq M predicted among non-blacks MDRD vol rate/area (S/P/Bld) mL/min/{1.73_m2} Normal [facility] Comment on above: Result Comment: Non- [...] ####Unless otherwise noted, all testing performed by [address], [place] [phone]: [id number] Director: Melva Escamilla M.D. Glucose mass conc 279 mg/dL High 70-99 [facility] Comment on above: Result Comment: This test result might be falsely depressed or falsely elevated onsamples drawn from patients taking Sulfasalazine and Sulfapyridine.Venipuncture should occur prior to taking either of these drugs. Performed By: #### L IPID, TSH ####Unless otherwise noted, all testing performed by [address], [place] [phone]: [id number] Director: Melva Escamilla M.D. Phosphate mass conc 1.9 mg/dL Low 2.8-4.[address] [facility] Comment on above: Performed By: #### L IPID, TSH ####Unless otherwise noted, all testing performed by [phone]: [id number] Director: Melva Escamilla M.D. Potassium molar conc 3.7 mmol/L Normal 3.5-5.1 [facility] Comment on above: Performed By: #### L IPID, TSH ####Unless otherwise noted, all testing performed by [place] [address]CLIA: [id number] Director: Melva Escamilla M.D. Sodium molar conc 136 mmol/L Normal 135-145 [facility] Comment on above: Performed By: #### L IPID, TSH ####Unless otherwise noted, all testing performed by [place] [phone]: [id number] Director: Melva Escamilla M.D. Urea nitrogen mass conc 18 mg/dL Normal 8-25 [facility] Comment on above: Performed By: #### L IPID, TSH ####Unless otherwise noted, all testing performed by [place] [phone]: [id number] Director: Melva Escamilla M.D. Glucose, POCon 07-05-2017 Glucose mass conc 175 mg/dL High [address] [place] [address] Comment on above: Performed By: #### L IPID, TSH ####Unless otherwise noted, all testing performed by [place] [id number]: [id number] Director: Melva Escamilla M.D. Glucose mass conc 191 mg/dL High [address] [place] [address] Comment on above: Performed By: #### L IPID, TSH ####Unless otherwise noted, all testing performed by [address]8509CLIA: [id number] Director: Melva Escamilla M.D. Glucose mass conc 264 mg/dL [address] Comment on above: Performed By: #### L IPID, TSH ####Unless otherwise noted, all testing performed by [place] [address]CLIA: [id number] Director: Melva Escamilla M.D. Glucose mass conc 163 mg/dL [address] Comment on above: Performed By: #### L IPID, TSH ####Unless otherwise noted, all testing performed by [place] [id number]: [id number] Director: Melva Escamilla M.D. Glucose, POCon 07-04-2017 Glucose mass conc 141 mg/dL [address] Comment on above: Performed By: #### L IPID, TSH ####Unless otherwise noted, all testing performed by [place] [id number]: [id number] Director: Melva Escamilla M.D. Glucose mass conc 331 mg/dL High 80-115 [facility] Comment on above: Performed By: #### G LUX ####Unless otherwise noted, all testing performed by [address] [phone]: [id number] Director: Melva Escamilla M.D. Glucose mass conc 117 mg/dL High 80-115 [facility] Comment on above: Performed By: #### G LUX ####Unless otherwise noted, all testing performed by [address] [id number]: [id number] Director: Melva Escamilla M.D. T4, Freeon 07-04-2017 T4 free mass conc 1.3 ng/dL Normal 0.76-1.79 [facility] Comment on above: Result Comment: Samp les from patients routinely receiving high dose biotin therapy(100-300 mg/day) may show falsely decreased results. Please correlateclinically. Performed By: #### T 4TTL, FT4 ####Unless otherwise noted, all testing performed by [address] [id number]: [id number] Director: Melva Escamilla M.D. T4, Totalon 07-04-2017 T4, Total 12.1 mcg/dL Normal 4.8-13.9 [facility] Comment on above: Result Comment: This test result might be falsely depressed or falsely elevated onsamples drawn from patients taking Sulfasalazine and Sulfapyridine.Venipuncture should occur prior to taking either of these drugs. Performed By: #### T 4TTL, FT4 ####Unless otherwise noted, all testing performed by [address] [id number]: [id number] Director: Melva Escamilla M.D. Glucose, POCon 07-03-2017 Glucose mass conc 228 mg/dL High 80-115 [facility] Comment on above: Performed By: #### G LUX ####Unless otherwise noted, all testing performed by [address] [id number]: [id number] Director: Melva Escamilla M.D. Glucose mass conc 169 mg/dL High 80115 [facility] Comment on above: Performed By: #### G LUX ####Unless otherwise noted, all testing performed by [address] [id number]: [id number] Director: Melva Escamilla M.D. Glucose mass conc 199 mg/dL High 80115 [facility] Comment on above: Performed By: #### G LUX ####Unless otherwise noted, all testing performed by [address] [id number]: [id number] Director: Melva Escamilla M.D. Glucose mass conc 128 mg/dL High 80115 [facility] Comment on above: Performed By: #### G LUX ####Unless otherwise noted, all testing performed by [address] [id number]: [id number] Director: Melva Escamilla M.D. Lipid Panelon 07-03-2017 Cholesterol in HDL mass conc 69 mg/dL High 40-59 [facility] Comment on above: Performed By: #### L IPID, TSH ####Unless otherwise noted, all testing performed by [address] [id number]: [id number] Director: Melva Escamilla M.D. Cholesterol in LDL mass conc 3 mg/dL Low 10-150 [facility] Comment on above: Performed By: #### L IPID, TSH ####Unless otherwise noted, all testing performed by [address] [id number]: [id number] Director: Melva Escamilla M.D. Cholesterol in VLDL mass conc 15 mg/dL Normal 5-40 [facility] Comment on above: Performed By: #### L IPID, TSH ####Unless otherwise noted, all testing performed by [address] [id number]: [id number] Director: Melva Escamilla M.D. Cholesterol mass conc 88 mg/dL Low 100-199 [facility] Comment on above: Performed By: #### L IPID, TSH ####Unless otherwise noted, all testing performed by [address] [id number]: [id number] Director: Melva Escamilla M.D. Cholesterol.total/Cho lesterol in HDL mass ratio 1.3 {ratio} Low 3.2-5.0 [facility] Comment on above: Result Comment: Richard le Coronary Heart Disease Risk Factor (CHDRF):Average risk= 4.41/2 Average risk= 3.32 times Average risk= 7.1 Performed By: #### L IPID, TSH ####Unless otherwise noted, all testing performed by [address] [id number]: [id number] Director: Melva Escamilla M.D. Triglyceride mass conc 76 mg/dL Normal 25-120 [facility] Comment on above: Performed By: #### L IPID, TSH ####Unless otherwise noted, all testing performed by [address] [phone]: [id number] Director: Melva Escamilla M.D. TSHon 07-03-2017 T4 free mass conc 1.3 ng/dL Normal 0.7-1.7 [facility] Comment on above: Result Comment: Samp les from patients routinely receiving high dose biotin therapy(100-300 mg/day) may show falsely decreased results. Please correlateclinically. Performed By: #### L IPID, TSH ####Unless otherwise noted, all testing performed by [address] [id number]: [id number] Director: Melva Escamilla M.D. Thyrotropin Qn 0.22 uIU/mL Low 0.320-5.000 [facility] Comment on above: Result Comment: Samp les from patients routinely receiving high dose biotin therapy(100-300 mg/day) may show falsely decreased results. Please correlateclinically. Performed By: #### L IPID, TSH ####Unless otherwise noted, all testing performed by [address] [id number]: [id number] Director: Melva Escamilla M.D. COVID-19 virus antigen assay SARS-CoV-2 (COVID-19) Ag IA.rapid Ql (Resp) [facility] Work Phone: [phone] Culture, urine Bacteria identified Cx Nom (U) Negative [facility] Work Phone: [phone] Bacteria identified Cx Nom (U) GPC Poss Enterococcus sp [facility] Work Phone: [phone] Bacteria identified Cx Nom (U) Klebsiella pneumoniae sp pneum [facility] Work Phone: [phone] Laboratory - Microbiology an d Antimicrobial susceptibility Bacteria identified Cx Nom (Bld) No growth in 5 days. [facility] Work Phone: Vital Signs Date Time Vital Sign Value Performing Clinician Facility 10-25-2024 09:32-0400 Body height 157.5 cm Chloe Mackenzie MD Work Phone: [facility] 10-25-2024 09:32-0400 Body mass index (BMI) [Ratio] 28.35 kg/m2 Chloe Mackenzie MD Work Phone: [facility] 10-25-2024 09:32-0400 Body weight 70.31 kg Chloe Mackenzie MD Work Phone: [facility] 09-21-2024 07:14-0400 Body mass index (BMI) [Ratio] 27.69 kg/m2 Rosa Cioce [employer] Work Phone: [facility] 09-21-2024 07:14-0400 Body temperature 96.91 [degF] Rosa Cioce [employer] Work Phone: [facility] 09-21-2024 07:14-0400 Body weight 68.67 kg Rosa Cioce [employer] Work Phone: [facility] 09-21-2024 07:14-0400 Diastolic blood pressure 76 mm[Hg] Rosa Cioce [employer] Work Phone: [facility] 09-21-2024 07:14-0400 Heart rate 87 /min Rosa Cioce [employer] Work Phone: [facility] 09-21-2024 07:14-0400 Respiratory rate 12 /min Rosa Cioce [employer] Work Phone: [facility] 09-21-2024 07:14-0400 SaO2% (BldA) [Mass fraction] 97 % Rosa Cioce [employer] Work Phone: [facility] 09-21-2024 07:14-0400 Systolic blood pressure 128 mm[Hg] Rosa Cioce [employer] Work Phone: [facility] 09-01-2024 14:50-0400 Diastolic blood pressure 64 mm[Hg] Heather Davis MD Work Phone: [facility] 09-01-2024 14:50-0400 Heart rate 73 /min Heather Davis MD Work Phone: [facility] 09-01-2024 14:50-0400 Respiratory rate 20 /min Heather Davis MD Work Phone: [facility] 09-01-2024 14:50-0400 SaO2% (BldA) [Mass fraction] 97 % Heather Davis MD Work Phone: [facility] 09-01-2024 14:50-0400 Systolic blood pressure 136 mm[Hg] Heather Davis MD Work Phone: [facility] 09-01-2024 13:50-0400 Body mass index (BMI) [Ratio] 27.8 kg/m2 Heather Davis MD Work Phone: [facility] 09-01-2024 13:50-0400 Body temperature 97.2 [degF] Heather Davis MD Work Phone: [facility] 09-01-2024 13:50-0400 Body weight 68.95 kg Heather Davis MD Work Phone: [facility] 08-24-2024 10:41-0400 Body mass index (BMI) [Ratio] 30.12 kg/m2 Bill Woods PA-C Work Phone: [facility] 08-24-2024 10:41-0400 Body weight 74.7 kg Bill Young PA-C Work Phone: [facility] 08-24-2024 10:41-0400 Diastolic blood pressure 64 mm[Hg] Bill Young PA-C Work Phone: [facility] 08-24-2024 10:41-0400 Heart rate 61 /min Bill Young PA-C Work Phone: [facility] 08-24-2024 10:41-0400 Systolic blood pressure 146 mm[Hg] Bill Young PA-C Work Phone: [facility] 08-05-2024 12:03-0400 Diastolic blood pressure 56 mm[Hg] Meka Webb MD Work Phone: [facility] Comment on above: manual 08-05-2024 12:03-0400 Heart rate 80 /min Meka Webb MD Work Phone: [facility] 08-05-2024 12:03-0400 Systolic blood pressure 110 mm[Hg] Meka Webb MD Work Phone: [facility] Comment on above: manual 08-05-2024 12:02-0400 Body height 157.5 cm Meka Webb MD Work Phone: [facility] 08-05-2024 12:02-0400 Body mass index (BMI) [Ratio] 28.72 kg/m2 Meka Webb MD Work Phone: [facility] 08-05-2024 12:02-0400 Body weight 71.22 kg Meka Webb MD Work Phone: [facility] 08-05-2024 12:02-0400 SaO2% (BldA) [Mass fraction] 98 % Meka Webb MD Work Phone: [facility] 08-04-2024 10:19-0400 Body height 157.5 cm Chloe Mackenzie MD Work Phone: [facility] 08-04-2024 10:19-0400 Body mass index (BMI) [Ratio] 28.72 kg/m2 Chloe Mackenzie MD Work Phone: [facility] 08-04-2024 10:19-0400 Body weight 71.22 kg Chloe Mackenzie MD Work Phone: [facility] 04-08-2024 12:24-0500 Body height 157.5 cm Heather Davis MD Work Phone: [facility] 04-08-2024 12:24-0500 Body mass index (BMI) [Ratio] 28.35 kg/m2 Heather Davis MD Work Phone: [facility] 04-08-2024 12:24-0500 Body temperature 96.4 [degF] Heather Davis MD Work Phone: [facility] 04-08-2024 12:24-0500 Body weight 70.31 kg Heather Davis MD Work Phone: [facility] 04-08-2024 12:24-0500 Diastolic blood pressure 70 mm[Hg] Heather Davis MD Work Phone: [facility] 04-08-2024 12:24-0500 Heart rate 80 /min Heather Davis MD Work Phone: [facility] 04-08-2024 12:24-0500 Respiratory rate 16 /min Heather Davis MD Work Phone: [facility] 04-08-2024 12:24-0500 SaO2% (BldA) [Mass fraction] 97 % Heather Davis MD Work Phone: [facility] 04-08-2024 12:24-0500 Systolic blood pressure 126 mm[Hg] Heather Davis MD Work Phone: [facility] 03-29-2024 09:19-0500 Body height 157.5 cm Meka Webb MD Work Phone: [facility] 03-29-2024 09:19-0500 Body mass index (BMI) [Ratio] 31.28 kg/m2 Meka Webb MD Work Phone: [facility] 03-29-2024 09:19-0500 Body weight 77.56 kg Meka Webb MD Work Phone: [facility] 03-29-2024 09:19-0500 Diastolic blood pressure 56 mm[Hg] Meka Webb MD Work Phone: [facility] 03-29-2024 09:19-0500 Heart rate 58 /min Meka Webb MD Work Phone: [facility] 03-29-2024 09:19-0500 Respiratory rate 20 /min Meka Webb MD Work Phone: [facility] 03-29-2024 09:19-0500 SaO2% (BldA) [Mass fraction] 97 % Meka Webb MD Work Phone: [facility] 03-29-2024 09:19-0500 Systolic blood pressure 100 mm[Hg] Meka Webb MD Work Phone: [facility] 03-08-2024 09:24-0500 Body height 157.5 cm Chloe Mackenzie MD Work Phone: [facility] 03-08-2024 09:24-0500 Body mass index (BMI) [Ratio] 31.28 kg/m2 Chloe Mackenzie MD Work Phone: [facility] 03-08-2024 09:24-0500 Body weight 77.56 kg Chloe Mackenzie MD Work Phone: [facility] 03-08-2024 09:24-0500 Diastolic blood pressure 59 mm[Hg] Chloe Mackenzie MD Work Phone: [facility] 03-08-2024 09:24-0500 Heart rate 70 /min Chloe Mackenzie MD Work Phone: [facility] 03-08-2024 09:24-0500 SaO2% (BldA) [Mass fraction] 97 % Chloe Mackenzie MD Work Phone: [facility] 03-08-2024 09:24-0500 Systolic blood pressure 125 mm[Hg] Chloe Mackenzie MD Work Phone: [facility] 02-24-2024 09:17-0400 Body height 157.5 cm Rosa Cioce [employer] Work Phone: [facility] 02-24-2024 09:17-0400 Body mass index (BMI) [Ratio] 31.35 kg/m2 Rosa Cioce [employer] Work Phone: [facility] 02-24-2024 09:17-0400 Body temperature 97.59 [degF] Rosa Cioce [employer] Work Phone: [facility] 02-24-2024 09:17-0400 Body weight 77.75 kg Rosa Cioce [employer] Work Phone: [facility] 02-24-2024 09:17-0400 Diastolic blood pressure 72 mm[Hg] Rosa Cioce [employer] Work Phone: [facility] 02-24-2024 09:17-0400 Heart rate 67 /min Rosa Cioce [employer] Work Phone: [facility] 02-24-2024 09:17-0400 SaO2% (BldA) [Mass fraction] 99 % Rosa Cioce [employer] Work Phone: [facility] 02-24-2024 09:17-0400 Systolic blood pressure 126 mm[Hg] Rosa Cioce [employer] Work Phone: [facility] 02-18-2024 13:32-0400 Body height 157.5 cm Chloe Mackenzie MD Work Phone: [facility] 02-18-2024 13:32-0400 Body mass index (BMI) [Ratio] 30.36 kg/m2 Chloe Mackenzie MD Work Phone: [facility] 02-18-2024 13:32-0400 Body weight 75.3 kg Chloe Mackenzie MD Work Phone: [facility] 02-11-2024 11:08-0400 Body height 157.5 cm Chloe Mackenzie MD Work Phone: [facility] 02-11-2024 11:08-0400 Body mass index (BMI) [Ratio] 30.36 kg/m2 Chloe Mackenzie MD Work Phone: [facility] 02-11-2024 11:08-0400 Body weight 75.3 kg Chloe Mackenzie MD Work Phone: [facility] 02-11-2024 11:08-0400 Heart rate 80 /min Chloe Mackenzie MD Work Phone: [facility] 02-11-2024 11:08-0400 SaO2% (BldA) [Mass fraction] 96 % Chloe Mackenzie MD Work Phone: [facility] 01-05-2024 08:09-0400 Diastolic blood pressure 46 mm[Hg] Pacc 2 Work Phone: [facility] 01-05-2024 08:09-0400 Systolic blood pressure 108 mm[Hg] Pacc 2 Work Phone: [facility] 01-05-2024 08:08-0400 Body height 157.5 cm Pacc 2 Work Phone: [facility] 01-05-2024 08:08-0400 Body mass index (BMI) [Ratio] 29.81 kg/m2 Pacc 2 Work Phone: [facility] 01-05-2024 08:08-0400 Body weight 73.94 kg Pacc 2 Work Phone: [facility] 01-05-2024 08:08-0400 Heart rate 57 /min Pacc 2 Work Phone: [facility] 01-05-2024 08:08-0400 Respiratory rate 18 /min Pacc 2 Work Phone: [facility] 01-05-2024 08:08-0400 SaO2% (BldA) [Mass fraction] 98 % Pacc 2 Work Phone: [facility] 12-29-2023 09:22-0400 Body height 157.5 cm Meka Webb MD Work Phone: [facility] 12-29-2023 09:22-0400 Body mass index (BMI) [Ratio] 28.9 kg/m2 Meka Webb MD Work Phone: [facility] 12-29-2023 09:22-0400 Body weight 71.67 kg Meka Webb MD Work Phone: [facility] 12-29-2023 09:22-0400 Diastolic blood pressure 61 mm[Hg] Meka Webb MD Work Phone: [facility] 12-29-2023 09:22-0400 Heart rate 56 /min Meka Webb MD Work Phone: [facility] 12-29-2023 09:22-0400 Respiratory rate 20 /min Meka Webb MD Work Phone: [facility] 12-29-2023 09:22-0400 SaO2% (BldA) [Mass fraction] 98 % Meka Webb MD Work Phone: [facility] 12-29-2023 09:22-0400 Systolic blood pressure 128 mm[Hg] Meka Webb MD Work Phone: [facility] 12-17-2023 09:32-0400 Body height 157.5 cm Chloe Mackenzie MD Work Phone: [facility] 12-17-2023 09:32-0400 Body mass index (BMI) [Ratio] 28.9 kg/m2 Chloe Mackenzie MD Work Phone: [facility] 12-17-2023 09:32-0400 Body weight 71.67 kg Chloe Mackenzie MD Work Phone: [facility] 12-17-2023 09:32-0400 Diastolic blood pressure 62 mm[Hg] Chloe Mackenzie MD Work Phone: [facility] 12-17-2023 09:32-0400 Heart rate 92 /min Chloe Mackenzie MD Work Phone: [facility] 12-17-2023 09:32-0400 SaO2% (BldA) [Mass fraction] 96 % Chloe Mackenzie MD Work Phone: [facility] 12-17-2023 09:32-0400 Systolic blood pressure 117 mm[Hg] Chloe Mackenzie MD Work Phone: [facility] 12-08-2023 11:05-0400 Body height 157.5 cm Heather Davis MD Work Phone: [facility] 12-08-2023 11:05-0400 Body mass index (BMI) [Ratio] 29.26 kg/m2 Heather Davis MD Work Phone: [facility] 12-08-2023 11:05-0400 Body temperature 96.49 [degF] Heather Davis MD Work Phone: [facility] 12-08-2023 11:05-0400 Body weight 72.58 kg Heather Davis MD Work Phone: [facility] 12-08-2023 11:05-0400 Diastolic blood pressure 69 mm[Hg] Heather Davis MD Work Phone: [facility] 12-08-2023 11:05-0400 Heart rate 59 /min Heather Davis MD Work Phone: [facility] 12-08-2023 11:05-0400 SaO2% (BldA) [Mass fraction] 98 % Heather Davis MD Work Phone: [facility] 12-08-2023 11:05-0400 Systolic blood pressure 112 mm[Hg] Heather Davis MD Work Phone: [facility] 11-27-2023 14:53-0400 Body height 157.5 cm Jarred Duarte MD Work Phone: [facility] 11-27-2023 14:53-0400 Body mass index (BMI) [Ratio] 29.26 kg/m2 Jarred Duarte MD Work Phone: [facility] 11-27-2023 14:53-0400 Body weight 72.58 kg Jarred Duarte MD Work Phone: [facility] 11-10-2023 06:48-0400 Body height 157.5 cm Bill Young PA-C Work Phone: [facility] 11-10-2023 06:48-0400 Body mass index (BMI) [Ratio] 29.08 kg/m2 Bill Young PA-C Work Phone: [facility] 11-10-2023 06:48-0400 Body weight 72.12 kg Bill Young PA-C Work Phone: [facility] 11-10-2023 06:48-0400 Diastolic blood pressure 63 mm[Hg] Bill Young PA-C Work Phone: [facility] 11-10-2023 06:48-0400 Heart rate 58 /min Bill Young PA-C Work Phone: [facility] 11-10-2023 06:48-0400 Systolic blood pressure 103 mm[Hg] Bill Young PA-C Work Phone: [facility] 09-24-2023 07:57-0400 Body height 158.5 cm Bill Young PA-C Work Phone: [facility] 09-24-2023 07:57-0400 Body mass index (BMI) [Ratio] 28.17 kg/m2 Bill Young PA-C Work Phone: [facility] 05-30-2024 07:57-0400 Body weight 70.76 kg Bill Young PA-C Work Phone: [facility] 09-24-2023 07:57-0400 Diastolic blood pressure 78 mm[Hg] Bill Young PA-C Work Phone: [facility] 09-24-2023 07:57-0400 Heart rate 74 /min Bill Young PA-C Work Phone: [facility] 09-24-2023 07:57-0400 Systolic blood pressure 143 mm[Hg] Bill Young PA-C Work Phone: [facility] 09-15-2023 11:12-0400 Body height 160 cm Heather Davis MD Work Phone: [facility] 09-15-2023 11:12-0400 Body mass index (BMI) [Ratio] 27.63 kg/m2 Heather Davis MD Work Phone: [facility] 09-15-2023 11:12-0400 Body temperature 97.11 [degF] Heather Davis MD Work Phone: [facility] 09-15-2023 11:12-0400 Body weight 70.76 kg Heather Davis MD Work Phone: [facility] 09-15-2023 11:12-0400 Diastolic blood pressure 62 mm[Hg] Heather Davis MD Work Phone: [facility] 09-15-2023 11:12-0400 Heart rate 62 /min Heather Davis MD Work Phone: [facility] 09-15-2023 11:12-0400 Respiratory rate 16 /min Heather Davis MD Work Phone: [facility] 09-15-2023 11:12-0400 SaO2% (BldA) [Mass fraction] 97 % Heather Davis MD Work Phone: [facility] 09-15-2023 11:12-0400 Systolic blood pressure 115 mm[Hg] Heather Davis MD Work Phone: [facility] 09-15-2023 08:36-0400 Body height 160 cm Meka Webb MD Work Phone: [facility] 09-15-2023 08:36-0400 Body mass index (BMI) [Ratio] 27.63 kg/m2 Meka Webb MD Work Phone: [facility] 09-15-2023 08:36-0400 Body weight 70.76 kg Meka Webb MD Work Phone: [facility] 09-15-2023 08:36-0400 Diastolic blood pressure 60 mm[Hg] Meka Webb MD Work Phone: [facility] 09-15-2023 08:36-0400 Heart rate 69 /min Meka Webb MD Work Phone: [facility] 09-15-2023 08:36-0400 Respiratory rate 20 /min Meka Webb MD Work Phone: [facility] 09-15-2023 08:36-0400 SaO2% (BldA) [Mass fraction] 98 % Meka Webb MD Work Phone: [facility] 09-15-2023 08:36-0400 Systolic blood pressure 123 mm[Hg] Meka Webb MD Work Phone: [facility] 08-19-2023 09:16-0400 Body height 160 cm Rosa Cioce [employer] Work Phone: [facility] 08-19-2023 09:16-0400 Body mass index (BMI) [Ratio] 27.63 kg/m2 Rosa Cioce [employer] Work Phone: [facility] 08-19-2023 09:16-0400 Body temperature 98.1 [degF] Rosa Cioce [employer] Work Phone: [facility] 08-19-2023 09:16-0400 Body weight 70.76 kg Rosa Cioce [employer] Work Phone: [facility] 08-19-2023 09:16-0400 Diastolic blood pressure 66 mm[Hg] Rosa Cioce [employer] Work Phone: [facility] 08-19-2023 09:16-0400 Heart rate 65 /min Rosa Cioce [employer] Work Phone: [facility] 08-19-2023 09:16-0400 SaO2% (BldA) [Mass fraction] 95 % Rosa Cioce [employer] Work Phone: [facility] 08-19-2023 09:16-0400 Systolic blood pressure 112 mm[Hg] Rosa Cioce [employer] Work Phone: [facility] 08-11-2023 10:27-0400 Body temperature 98.29 [degF] Heather Davis MD Work Phone: [facility] 08-11-2023 10:27-0400 Diastolic blood pressure 54 mm[Hg] Heather Davis MD Work Phone: [facility] 08-11-2023 10:27-0400 Heart rate 57 /min Heather Davis MD Work Phone: [facility] 08-11-2023 10:27-0400 Respiratory rate 18 /min Heather Davis MD Work Phone: [facility] 08-11-2023 10:27-0400 SaO2% (BldA) [Mass fraction] 100 % Heather Davis MD Work Phone: [facility] 08-11-2023 10:27-0400 Systolic blood pressure 109 mm[Hg] Heather Davis MD Work Phone: [facility] 08-06-2023 12:47-0400 Body height 157.5 cm Bill Woods PA-C Work Phone: [facility] 08-06-2023 12:47-0400 Body mass index (BMI) [Ratio] 28.35 kg/m2 Bill VANCEC Work Phone: [facility] 08-06-2023 12:47-0400 Body weight 70.31 kg Bill Young PA-C Work Phone: [facility] 08-06-2023 12:47-0400 Diastolic blood pressure 52 mm[Hg] Bill Young PA-C Work Phone: [facility] 08-06-2023 12:47-0400 Heart rate 70 /min Bill Young PA-C Work Phone: [facility] 08-06-2023 12:47-0400 Systolic blood pressure 107 mm[Hg] Bill Young PA-C Work Phone: [facility] 06-24-2023 09:20-0500 Body height 157.5 cm Bill Young PA-C Work Phone: [facility] 06-24-2023 09:20-0500 Body weight 68.04 kg Bill Young PA-C Work Phone: [facility] 06-24-2023 09:20-0500 Diastolic blood pressure 63 mm[Hg] Bill Young PA-C Work Phone: [facility] 06-24-2023 09:20-0500 Heart rate 74 /min Bill Young PA-C Work Phone: [facility] 06-24-2023 09:20-0500 Respiratory rate 18 /min Bill Young PA-C Work Phone: [facility] 06-24-2023 09:20-0500 Systolic blood pressure 111 mm[Hg] Bill Young PA-C Work Phone: [facility] 06-16-2023 13:59-0500 Body height 157.5 cm Heather Davis MD Work Phone: [facility] 06-16-2023 13:59-0500 Body temperature 97.7 [degF] Heather Davis MD Work Phone: [facility] 06-16-2023 13:59-0500 Body weight 74.39 kg Heather Davis MD Work Phone: [facility] 06-16-2023 13:59-0500 Diastolic blood pressure 53 mm[Hg] Heather Davis MD Work Phone: [facility] 06-16-2023 13:59-0500 Heart rate 69 /min Heather Davis MD Work Phone: [facility] 06-16-2023 13:59-0500 SaO2% (BldA) [Mass fraction] 98 % Heather Davis MD Work Phone: [facility] 06-16-2023 13:59-0500 Systolic blood pressure 128 mm[Hg] Heather Davis MD Work Phone: [facility] 04-03-2023 09:33-0500 Body height 157.5 cm Heather Davis MD Work Phone: [facility] 04-03-2023 09:33-0500 Body temperature 97.11 [degF] Heather Davis MD Work Phone: [facility] 04-03-2023 09:33-0500 Body weight 68.04 kg Heather Davis MD Work Phone: [facility] 04-03-2023 09:33-0500 Diastolic blood pressure 55 mm[Hg] Heather Davis MD Work Phone: [facility] 04-03-2023 09:33-0500 Heart rate 64 /min Heather Davis MD Work Phone: [facility] 04-03-2023 09:33-0500 Respiratory rate 16 /min Heather Davis MD Work Phone: [facility] 04-03-2023 09:33-0500 SaO2% (BldA) [Mass fraction] 94 % Heather Davis MD Work Phone: [facility] 04-03-2023 09:33-0500 Systolic blood pressure 138 mm[Hg] Heather Davis MD Work Phone: [facility] 03-11-2023 09:47-0500 Body height 157.5 cm Heather Davis MD Work Phone: [facility] 03-11-2023 09:47-0500 Body temperature 97.7 [degF] Heather Davis MD Work Phone: [facility] 03-11-2023 09:47-0500 Body weight 66.22 kg Heather Davis MD Work Phone: [facility] 03-11-2023 09:47-0500 Diastolic blood pressure 62 mm[Hg] Heather Davis MD Work Phone: [facility] 03-11-2023 09:47-0500 Heart rate 67 /min Heather Davis MD Work Phone: [facility] 03-11-2023 09:47-0500 SaO2% (BldA) [Mass fraction] 100 % Heather Davis MD Work Phone: [facility] 03-11-2023 09:47-0500 Systolic blood pressure 119 mm[Hg] Heather Davis MD Work Phone: [facility] 02-11-2023 08:36-0400 Body height 157.5 cm Rosa Cioce [employer] Work Phone: [facility] 02-11-2023 08:36-0400 Body weight 66.95 kg Rosa Cioce [employer] Work Phone: [facility] 02-11-2023 08:36-0400 Diastolic blood pressure 70 mm[Hg] Rosa Cioce [employer] Work Phone: [facility] 02-11-2023 08:36-0400 Heart rate 65 /min Rosa Cioce [employer] Work Phone: [facility] 02-11-2023 08:36-0400 SaO2% (BldA) [Mass fraction] 94 % Rosa Cioce [employer] Work Phone: [facility] 02-11-2023 08:36-0400 Systolic blood pressure 142 mm[Hg] Rosa Flores [employer] Work Phone: [facility] 01-29-2023 12:38-0400 Body height 157.5 cm Bill Young PA-C Work Phone: [facility] 01-29-2023 12:38-0400 Body weight 66.22 kg Bill Young PA-C Work Phone: [facility] 01-29-2023 12:38-0400 Diastolic blood pressure 74 mm[Hg] Bill Young PA-C Work Phone: [facility] 01-29-2023 12:38-0400 Heart rate 63 /min Bill Young PA-C Work Phone: [facility] 01-29-2023 12:38-0400 Systolic blood pressure 136 mm[Hg] Bill Young PA-C Work Phone: [facility] 01-26-2023 08:34-0400 Body weight 66.22 kg Fawad Simmons [employer] Work Phone: [facility] 01-26-2023 08:34-0400 Diastolic blood pressure 82 mm[Hg] Fawad Simmons [employer] Work Phone: [facility] 01-26-2023 08:34-0400 Heart rate 58 /min Fawad Simmons APRN.[employer] Work Phone: [facility] 01-26-2023 08:34-0400 Systolic blood pressure 138 mm[Hg] Fawad Simmons [employer] Work Phone: [facility] 01-19-2023 07:59-0400 Body weight 72.58 kg Cameron Sher Jr., MD Work Phone: [facility] 01-19-2023 07:59-0400 Diastolic blood pressure 75 mm[Hg] Cameron Sher Jr., MD Work Phone: [facility] 01-19-2023 07:59-0400 Heart rate 64 /min Cmaeron Sher Jr., MD Work Phone: [facility] 01-19-2023 07:59-0400 Respiratory rate 18 /min Cameron Sher Jr., MD Work Phone: [facility] 01-19-2023 07:59-0400 SaO2% (BldA) [Mass fraction] 98 % Cameron Sher Jr., MD Work Phone: [facility] 01-19-2023 07:59-0400 Systolic blood pressure 124 mm[Hg] Cameron Sher Jr., MD Work Phone: [facility] 01-15-2023 10:50-0400 Diastolic blood pressure 72 mm[Hg] Meka Webb MD Work Phone: [facility] 01-15-2023 10:50-0400 Heart rate 59 /min Meka Webb MD Work Phone: [facility] 01-15-2023 10:50-0400 SaO2% (BldA) [Mass fraction] 98 % Meka Webb MD Work Phone: [facility] 01-15-2023 10:50-0400 Systolic blood pressure 141 mm[Hg] Meka Webb MD Work Phone: [facility] 01-14-2023 10:06-0400 Body height 157.5 cm Bill Woods PA-C Work Phone: [facility] 01-14-2023 10:06-0400 Body weight 72.58 kg Bill Young PA-C Work Phone: [facility] 01-14-2023 10:06-0400 Diastolic blood pressure 63 mm[Hg] Bill Young PA-C Work Phone: [facility] 01-14-2023 10:06-0400 Heart rate 55 /min Bill Young PA-C Work Phone: [facility] 01-14-2023 10:06-0400 Respiratory rate 20 /min Bill Young PA-C Work Phone: [facility] 01-14-2023 10:06-0400 Systolic blood pressure 141 mm[Hg] Bill Young PA-C Work Phone: [facility] 12-10-2022 10:25-0400 Body height 157.5 cm Heather Davis MD Work Phone: [facility] 12-10-2022 10:25-0400 Body temperature 98.2 [degF] Heather Davis MD Work Phone: [facility] 12-10-2022 10:25-0400 Body weight 70.31 kg Heather Davis MD Work Phone: [facility] 12-10-2022 10:25-0400 Diastolic blood pressure 77 mm[Hg] Heather Davis MD Work Phone: [facility] 12-10-2022 10:25-0400 Heart rate 56 /min Heather Davis MD Work Phone: [facility] 12-10-2022 10:25-0400 SaO2% (BldA) [Mass fraction] 95 % Heather Davis MD Work Phone: [facility] 12-10-2022 10:25-0400 Systolic blood pressure 161 mm[Hg] Heather Davis MD Work Phone: [facility] 12-03-2022 14:12-0400 Diastolic blood pressure 60 mm[Hg] Bill Young PA-C Work Phone: [facility] 12-03-2022 14:12-0400 Heart rate 52 /min Bill Young PA-C Work Phone: [facility] 12-03-2022 14:12-0400 Systolic blood pressure 122 mm[Hg] Bill Young PA-C Work Phone: [facility] 11-04-2022 13:31-0400 Body height 157.5 cm Heather Davis MD Work Phone: [facility] 11-04-2022 13:31-0400 Body temperature 97.3 [degF] Heather Davis MD Work Phone: [facility] 11-04-2022 13:31-0400 Body weight 70.31 kg Heather Davis MD Work Phone: [facility] 11-04-2022 13:31-0400 Diastolic blood pressure 58 mm[Hg] Heather Davis MD Work Phone: [facility] 11-04-2022 13:31-0400 Heart rate 63 /min Heather Davis MD Work Phone: [facility] 11-04-2022 13:31-0400 Respiratory rate 16 /min Heather Davis MD Work Phone: [facility] 11-04-2022 13:31-0400 SaO2% (BldA) [Mass fraction] 97 % Heather Davis MD Work Phone: [facility] 11-04-2022 13:31-0400 Systolic blood pressure 106 mm[Hg] Heather Davis MD Work Phone: [facility] 09-03-2022 08:17-0400 Body weight 70.31 kg Bill Young PA-C Work Phone: [facility] 09-03-2022 08:17-0400 Diastolic blood pressure 73 mm[Hg] Bill Young PA-C Work Phone: [facility] 09-03-2022 08:17-0400 Heart rate 71 /min Bill Young PA-C Work Phone: [facility] 09-03-2022 08:17-0400 Systolic blood pressure 137 mm[Hg] Bill Young PA-C Work Phone: [facility] 08-06-2022 10:47-0400 Body weight 76.66 kg Rosa Flores APRN.CNP Work Phone: [facility] 07-30-2022 10:20-0400 Body weight 73.94 kg Bill Young PA-C Work Phone: [facility] 07-30-2022 10:20-0400 Diastolic blood pressure 57 mm[Hg] Bill Woods PA-C Work Phone: [facility] 07-30-2022 10:20-0400 Heart rate 57 /min Bill Woods PA-C Work Phone: [facility] 07-30-2022 10:20-0400 Systolic blood pressure 123 mm[Hg] Bill Woods PA-C Work Phone: [facility] 04-02-2022 23:57-0500 Diastolic blood pressure 74 mm[Hg] Dr. Tom Sherman Work Phone: [facility] Work Phone: 04-02-2022 23:57-0500 Heart rate 63 /min Dr. Tom Sherman Work Phone: [facility] Work Phone: 04-02-2022 23:57-0500 Respiratory rate 16 /min Dr. Tom Sherman Work Phone: [facility] Work Phone: 04-02-2022 23:57-0500 SaO2% (BldA) [Mass fraction] 97 % Dr. Tom Sherman Work Phone: [facility] Work Phone: 04-02-2022 23:57-0500 Systolic blood pressure 138 mm[Hg] Dr. Tom Sherman Work Phone: [facility] Work Phone: 04-02-2022 20:22-0500 Body height 157.[address] Tom Sherman Work Phone: [facility] Work Phone: 04-02-2022 20:22-0500 Body mass index (BMI) [Ratio] 31.4 kg/m2 Dr. Tom Sherman Work Phone: [facility] Work Phone: 04-02-2022 20:22-0500 Body temperature 98 [degF] Dr. Tom Sherman Work Phone: [facility] Work Phone: 04-02-2022 20:22-0500 Body weight 78.[address] Tom Sherman Work Phone: [facility] Work Phone: 04-01-2022 10:49-0500 Body temperature 96.3 [degF] Dr. Tom Sherman Work Phone: [facility] Work Phone: 04-01-2022 10:49-0500 Body weight 78.[address] Tom Sherman Work Phone: [facility] Work Phone: 04-01-2022 10:49-0500 Diastolic blood pressure 64 mm[Hg] Dr. Tom Sherman Work Phone: [facility] Work Phone: 04-01-2022 10:49-0500 Heart rate 56 /min Dr. Tom Sherman Work Phone: [facility] Work Phone: 04-01-2022 10:49-0500 Respiratory rate 18 /min Dr. Tom Sherman Work Phone: [facility] Work Phone: 04-01-2022 10:49-0500 SaO2% (BldA) [Mass fraction] 96 % Dr. Tom Sherman Work Phone: [facility] Work Phone: 04-01-2022 10:49-0500 Systolic blood pressure 114 mm[Hg] Dr. Tom Sherman Work Phone: [facility] Work Phone: 02-11-2022 10:32-0400 Body height 157.5 cm Bill Young PA-C Work Phone: [facility] 02-11-2022 10:32-0400 Body weight 74.39 kg Bill Young PA-C Work Phone: [facility] 02-11-2022 10:32-0400 Diastolic blood pressure 67 mm[Hg] Bill Young PA-C Work Phone: [facility] 02-11-2022 10:32-0400 Heart rate 62 /min Bill Young PA-C Work Phone: [facility] 02-11-2022 10:32-0400 Systolic blood pressure 106 mm[Hg] Bill Young PA-C Work Phone: [facility] 02-07-2022 18:09-0400 Body temperature 98.5 [degF] Dr. Tom Sherman Work Phone: [facility] Work Phone: 02-07-2022 18:09-0400 Diastolic blood pressure 74 mm[Hg] Dr. Tom Sherman Work Phone: [facility] Work Phone: 02-07-2022 18:09-0400 Heart rate 78 /min Dr. Tom Sherman Work Phone: [facility] Work Phone: 02-07-2022 18:09-0400 Systolic blood pressure 102 mm[Hg] Dr. Tom Sherman Work Phone: [facility] Work Phone: 02-07-2022 18:05-0400 Respiratory rate 17 /min Dr. Tom Sherman Work Phone: [facility] Work Phone: 02-07-2022 18:05-0400 SaO2% (BldA) [Mass fraction] 98 % Dr. Tom Sherman Work Phone: [facility] Work Phone: 02-07-2022 14:22-0400 Body height 157.[address] Tom Sherman Work Phone: [facility] Work Phone: 02-07-2022 14:22-0400 Body mass index (BMI) [Ratio] 30.5 kg/m2 Dr. Tom Sherman Work Phone: [facility] Work Phone: 02-07-2022 14:22-0400 Body weight 75.[address] Tom Sherman Work Phone: [facility] Work Phone: 01-14-2022 13:17-0400 Body mass index (BMI) [Ratio] 28.5 kg/m2 Dr. Tom Sherman Work Phone: [facility] Work Phone: 01-14-2022 13:17-0400 Body weight 70.[address] Tom Sherman Work Phone: [facility] Work Phone: 01-14-2022 13:17-0400 Diastolic blood pressure 70 mm[Hg] Dr. Tom Sherman Work Phone: [facility] Work Phone: 01-14-2022 13:17-0400 Heart rate 90 /min Dr. Tom Sherman Work Phone: [facility] Work Phone: 01-14-2022 13:17-0400 Respiratory rate 16 /min Dr. Tom Sherman Work Phone: [facility] Work Phone: 01-14-2022 13:17-0400 Systolic blood pressure 108 mm[Hg] Dr. Tom Sherman Work Phone: [facility] Work Phone: 12-24-2021 13:34-0400 Body mass index (BMI) [Ratio] 30.5 kg/m2 Dr. Tom Sherman Work Phone: [facility] Work Phone: 12-24-2021 13:34-0400 Body temperature 98.6 [degF] Dr. Tom Sherman Work Phone: [facility] Work Phone: 12-24-2021 13:34-0400 Body weight 75.[address] Tom Sherman Work Phone: [facility] Work Phone: 12-24-2021 13:34-0400 Diastolic blood pressure 70 mm[Hg] Dr. Tom Sherman Work Phone: [facility] Work Phone: 12-24-2021 13:34-0400 Heart rate 74 /min Dr. Tom Sherman Work Phone: [facility] Work Phone: 12-24-2021 13:34-0400 Respiratory rate 14 /min Dr. Tom Sherman Work Phone: [facility] Work Phone: 12-24-2021 13:34-0400 SaO2% (BldA) [Mass fraction] 94 % Dr. Tom Sherman Work Phone: [facility] Work Phone: 12-24-2021 13:34-0400 Systolic blood pressure 136 mm[Hg] Dr. Tom Sherman Work Phone: [facility] Work Phone: 11-20-2021 14:30-0400 Body temperature 98.2 [degF] Dr. Tom Sherman Work Phone: [facility] Work Phone: 11-20-2021 14:30-0400 Diastolic blood pressure 65 mm[Hg] Dr. Tom Sherman Work Phone: [facility] Work Phone: 11-20-2021 14:30-0400 Heart rate 76 /min Dr. Tom Sherman Work Phone: [facility] Work Phone: 11-20-2021 14:30-0400 Respiratory rate 18 /min Dr. Tom Sherman Work Phone: [facility] Work Phone: 11-20-2021 14:30-0400 SaO2% (BldA) [Mass fraction] 100 % Dr. Tom Sherman Work Phone: [facility] Work Phone: 11-20-2021 14:30-0400 Systolic blood pressure 137 mm[Hg] Dr. Tom Sherman Work Phone: [facility] Work Phone: 11-17-2021 07:22-0400 Inhaled oxygen flow rate 2 L/min Dr. Tom Sherman Work Phone: [facility] Work Phone: 11-16-2021 23:28-0400 Body height 157.[address] Tom Sherman Work Phone: [facility] Work Phone: 11-16-2021 23:28-0400 Body mass index (BMI) [Ratio] 29.2 kg/m2 Dr. Tom Sherman Work Phone: [facility] Work Phone: 11-16-2021 23:28-0400 Body weight 72.[address] Tom Sherman Work Phone: [facility] Work Phone: 11-16-2021 22:25-0400 Body temperature 98.7 [degF] Dr. Tom Sherman Work Phone: [facility] Work Phone: 11-16-2021 22:25-0400 Diastolic blood pressure 78 mm[Hg] Dr. Tom Sherman Work Phone: [facility] Work Phone: 11-16-2021 22:25-0400 Heart rate 80 /min Dr. Tom Sherman Work Phone: [facility] Work Phone: 11-16-2021 22:25-0400 Respiratory rate 15 /min Dr. Tom Sherman Work Phone: [facility] Work Phone: 11-16-2021 22:25-0400 SaO2% (BldA) [Mass fraction] 97 % Dr. Tom Sherman Work Phone: [facility] Work Phone: 11-16-2021 22:25-0400 Systolic blood pressure 108 mm[Hg] Dr. Tom Sherman Work Phone: [facility] Work Phone: 11-16-2021 18:57-0400 Body height [address] Tom Sherman Work Phone: [facility] Work Phone: 11-16-2021 18:57-0400 Body mass index (BMI) [Ratio] 30.1 kg/m2 Dr. Tom Sherman Work Phone: [facility] Work Phone: 11-16-2021 18:57-0400 Body weight 74.[address] Tom Sherman Work Phone: [facility] Work Phone: 11-05-2021 10:18-0400 Body mass index (BMI) [Ratio] 29.9 kg/m2 Dr. Tom Sherman Work Phone: [facility] Work Phone: 11-05-2021 10:18-0400 Body temperature 97.6 [degF] Dr. Tom Sherman Work Phone: [facility] Work Phone: 11-05-2021 10:18-0400 Body weight 74.[address] Tom Sherman Work Phone: [facility] Work Phone: 11-05-2021 10:18-0400 Diastolic blood pressure 84 mm[Hg] Dr. Tom Sherman Work Phone: [facility] Work Phone: 11-05-2021 10:18-0400 Heart rate 96 /min Dr. Tom Sherman Work Phone: [facility] Work Phone: 11-05-2021 10:18-0400 Respiratory rate 18 /min Dr. Tom Sherman Work Phone: [facility] Work Phone: 11-05-2021 10:18-0400 SaO2% (BldA) [Mass fraction] 96 % Dr. Tom Sherman Work Phone: [facility] Work Phone: 11-05-2021 10:18-0400 Systolic blood pressure 154 mm[Hg] Dr. Tom Sherman Work Phone: [facility] Work Phone: 10-10-2021 13:52-0400 Body mass index (BMI) [Ratio] 29 kg/m2 Dr. Tom Sherman Work Phone: [facility] Work Phone: 10-10-2021 13:52-0400 Body temperature 97.6 [degF] Dr. Tom Sherman Work Phone: [facility] Work Phone: 10-10-2021 13:52-0400 Body weight 72.[address] Tom Sherman Work Phone: [facility] Work Phone: 10-10-2021 13:52-0400 Diastolic blood pressure 70 mm[Hg] Dr. Tom Sherman Work Phone: [facility] Work Phone: 10-10-2021 13:52-0400 Heart rate 91 /min Dr. Tom Sherman Work Phone: [facility] Work Phone: 10-10-2021 13:52-0400 Respiratory rate 18 /min Dr. Tom Sherman Work Phone: [facility] Work Phone: 10-10-2021 13:52-0400 SaO2% (BldA) [Mass fraction] 92 % Dr. Tom Sherman Work Phone: [facility] Work Phone: 10-10-2021 13:52-0400 Systolic blood pressure 130 mm[Hg] Dr. Tom Sherman Work Phone: [facility] Work Phone: 10-07-2021 20:08-0400 Diastolic blood pressure 60 mm[Hg] Dr. Tom Sherman Work Phone: [facility] Work Phone: 10-07-2021 20:08-0400 Heart rate 82 /min Dr. Tom Sherman Work Phone: [facility] Work Phone: 10-07-2021 20:08-0400 Respiratory rate 16 /min Dr. Tom Sherman Work Phone: [facility] Work Phone: 10-07-2021 20:08-0400 SaO2% (BldA) [Mass fraction] 95 % Dr. Tom Sherman Work Phone: [facility] Work Phone: 10-07-2021 20:08-0400 Systolic blood pressure 108 mm[Hg] Dr. Tom Sherman Work Phone: [facility] Work Phone: 10-07-2021 17:45-0400 Body height 157.[address] Tom Sherman Work Phone: [facility] Work Phone: 10-07-2021 17:45-0400 Body mass index (BMI) [Ratio] 32.3 kg/m2 Dr. Tom Sherman Work Phone: [facility] Work Phone: 10-07-2021 17:45-0400 Body temperature 97.8 [degF] Dr. Tom Sherman Work Phone: [facility] Work Phone: 10-07-2021 17:45-0400 Body weight 80.[address] Tom Sherman Work Phone: [facility] Work Phone: 09-20-2021 10:14-0400 Body mass index (BMI) [Ratio] 27.4 kg/m2 Dr. Tom Sherman Work Phone: [facility] Work Phone: 09-20-2021 10:14-0400 Body temperature 97.6 [degF] Dr. Tom Sherman Work Phone: [facility] Work Phone: 09-20-2021 10:14-0400 Body weight 74.[address] Tom Sherman Work Phone: [facility] Work Phone: 09-20-2021 10:14-0400 Diastolic blood pressure 72 mm[Hg] Dr. Tom Sherman Work Phone: [facility] Work Phone: 09-20-2021 10:14-0400 Heart rate 62 /min Dr. Tom Sherman Work Phone: [facility] Work Phone: 09-20-2021 10:14-0400 Respiratory rate 14 /min Dr. Tom Sherman Work Phone: [facility] Work Phone: 09-20-2021 10:14-0400 SaO2% (BldA) [Mass fraction] 96 % Dr. Tom Sherman Work Phone: [facility] Work Phone: 09-20-2021 10:14-0400 Systolic blood pressure 136 mm[Hg] Dr. Tom Sherman Work Phone: [facility] Work Phone: 09-20-2021 10:14-0400 Body mass index (BMI) [Ratio] 27.4 kg/m2 Dr. Tom Sherman Work Phone: [facility] Work Phone: 09-20-2021 10:14-0400 Body temperature 97.6 [degF] Dr. Tom Sherman Work Phone: [facility] Work Phone: 09-20-2021 10:14-0400 Body weight 74.[address] Tom Sherman Work Phone: [facility] Work Phone: 09-20-2021 10:14-0400 Diastolic blood pressure 72 mm[Hg] Dr. Tom Sherman Work Phone: [facility] Work Phone: 09-20-2021 10:14-0400 Heart rate 62 /min Dr. Tom Sherman Work Phone: [facility] Work Phone: 09-20-2021 10:14-0400 Respiratory rate 14 /min Dr. Tom Sherman Work Phone: [facility] Work Phone: 09-20-2021 10:14-0400 SaO2% (BldA) [Mass fraction] 96 % Dr. Tom Sherman Work Phone: [facility] Work Phone: 09-20-2021 10:14-0400 Systolic blood pressure 136 mm[Hg] Dr. Tom Sherman Work Phone: [facility] Work Phone: 08-21-2021 20:42-0400 Diastolic blood pressure 76 mm[Hg] Dr. Tom Sherman Work Phone: [facility] Work Phone: 08-21-2021 20:42-0400 Heart rate 81 /min Dr. Tom Sherman Work Phone: [facility] Work Phone: 08-21-2021 20:42-0400 Respiratory rate 14 /min Dr. Tom Sherman Work Phone: [facility] Work Phone: 08-21-2021 20:42-0400 SaO2% (BldA) [Mass fraction] 98 % Dr. Tom Sherman Work Phone: [facility] Work Phone: 08-21-2021 20:42-0400 Systolic blood pressure 124 mm[Hg] Dr. Tom Sherman Work Phone: [facility] Work Phone: 08-21-2021 18:33-0400 Body height 165.[address] Tom Sherman Work Phone: [facility] Work Phone: 08-21-2021 18:33-0400 Body mass index (BMI) [Ratio] 29 kg/m2 Dr. Tom Sherman Work Phone: [facility] Work Phone: 08-21-2021 18:33-0400 Body temperature 97.7 [degF] Dr. Tom Sherman Work Phone: [facility] Work Phone: 08-21-2021 18:33-0400 Body weight 79.[address] Tom Sherman Work Phone: [facility] Work Phone: 08-08-2021 09:59-0400 Body mass index (BMI) [Ratio] 28.1 kg/m2 Dr. Tom Sherman Work Phone: [facility] Work Phone: 08-08-2021 09:59-0400 Body temperature 97.5 [degF] Dr. Tom Sherman Work Phone: [facility] Work Phone: 08-08-2021 09:59-0400 Body weight 76.[address] Tom Sherman Work Phone: [facility] Work Phone: 08-08-2021 09:59-0400 Diastolic blood pressure 74 mm[Hg] Dr. Tom Sherman Work Phone: [facility] Work Phone: 08-08-2021 09:59-0400 Heart rate 79 /min Dr. Tom Sherman Work Phone: [facility] Work Phone: 08-08-2021 09:59-0400 Respiratory rate 14 /min Dr. Tom Sherman Work Phone: [facility] Work Phone: 08-08-2021 09:59-0400 SaO2% (BldA) [Mass fraction] 96 % Dr. Tom Sherman Work Phone: [facility] Work Phone: 08-08-2021 09:59-0400 Systolic blood pressure 118 mm[Hg] Dr. Tom Sherman Work Phone: [facility] Work Phone: 08-08-2021 09:59-0400 Body height 165.[address] Tom Sherman Work Phone: [facility] Work Phone: 08-08-2021 09:59-0400 Body mass index (BMI) [Ratio] 28.1 kg/m2 Dr. Tom Sherman Work Phone: [facility] Work Phone: 08-08-2021 09:59-0400 Body temperature 97.5 [degF] Dr. Tom Sherman Work Phone: [facility] Work Phone: 08-08-2021 09:59-0400 Body weight 76.[address] Tom Sherman Work Phone: [facility] Work Phone: 08-08-2021 09:59-0400 Diastolic blood pressure 74 mm[Hg] Dr. Tom Sherman Work Phone: [facility] Work Phone: 08-08-2021 09:59-0400 Heart rate 79 /min Dr. Tom Sherman Work Phone: [facility] Work Phone: 08-08-2021 09:59-0400 Respiratory rate 14 /min Dr. Tom Sherman Work Phone: [facility] Work Phone: 08-08-2021 09:59-0400 SaO2% (BldA) [Mass fraction] 96 % Dr. Tom Sherman Work Phone: [facility] Work Phone: 08-08-2021 09:59-0400 Systolic blood pressure 118 mm[Hg] Dr. Tom Sherman Work Phone: [facility] Work Phone: 07-03-2021 09:38-0500 Body mass index (BMI) [Ratio] 27.6 kg/m2 Dr. Tom Sherman Work Phone: [facility] Work Phone: 07-03-2021 09:38-0500 Body temperature 97.5 [degF] Dr. Tom Sherman Work Phone: [facility] Work Phone: 07-03-2021 09:38-0500 Body weight 75.[address] Tom Sherman Work Phone: [facility] Work Phone: 07-03-2021 09:38-0500 Diastolic blood pressure 74 mm[Hg] Dr. Tom Sherman Work Phone: [facility] Work Phone: 07-03-2021 09:38-0500 Heart rate 76 /min Dr. Tom Sherman Work Phone: [facility] Work Phone: 07-03-2021 09:38-0500 Respiratory rate 14 /min Dr. Tom Sherman Work Phone: [facility] Work Phone: 07-03-2021 09:38-0500 SaO2% (BldA) [Mass fraction] 95 % Dr. Tom Sherman Work Phone: [facility] Work Phone: 07-03-2021 09:38-0500 Systolic blood pressure 138 mm[Hg] Dr. Tom Sherman Work Phone: [facility] Work Phone: 06-25-2021 12:21-0500 Body mass index (BMI) [Ratio] 30.4 kg/m2 Dr. Tom Sherman Work Phone: [facility] Work Phone: 06-25-2021 12:21-0500 Body temperature 983 [degF] Dr. Tom Sherman Work Phone: [facility] Work Phone: 06-25-2021 12:21-0500 Body weight [address] Tom Sherman Work Phone: [facility] Work Phone: 06-25-2021 12:21-0500 Diastolic blood pressure 68 mm[Hg] Dr. Tom Sherman Work Phone: [facility] Work Phone: 06-25-2021 12:21-0500 Heart rate 64 /min Dr. Tom Sherman Work Phone: [facility] Work Phone: 06-25-2021 12:21-0500 Respiratory rate 14 /min Dr. Tom Sherman Work Phone: [facility] Work Phone: 06-25-2021 12:21-0500 SaO2% (BldA) [Mass fraction] 96 % Dr. Tom Sherman Work Phone: [facility] Work Phone: 06-25-2021 12:21-0500 Systolic blood pressure 134 mm[Hg] Dr. Tom Sherman Work Phone: [facility] Work Phone: 06-22-2021 14:33-0500 Diastolic blood pressure 59 mm[Hg] Dr. Tom Sherman Work Phone: [facility] Work Phone: 06-22-2021 14:33-0500 Heart rate 78 /min Dr. Tom Sherman Work Phone: [facility] Work Phone: 06-22-2021 14:33-0500 Respiratory rate 18 /min Dr. Tom Sherman Work Phone: [facility] Work Phone: 06-22-2021 14:33-0500 SaO2% (BldA) [Mass fraction] 96 % Dr. Tom Sherman Work Phone: [facility] Work Phone: 06-22-2021 14:33-0500 Systolic blood pressure 120 mm[Hg] Dr. Tom Sherman Work Phone: [facility] Work Phone: 06-22-2021 10:41-0500 Body mass index (BMI) [Ratio] 30.5 kg/m2 Dr. Tom Sherman Work Phone: [facility] Work Phone: 06-22-2021 10:41-0500 Body temperature 97.8 [degF] Dr. Tom Sherman Work Phone: [facility] Work Phone: 06-22-2021 10:41-0500 Body weight 83.[address] Tom Sherman Work Phone: [facility] Work Phone: 06-15-2021 20:39-0500 Diastolic blood pressure 53 mm[Hg] VERITO TAM MD [facility] 06-15-2021 20:39-0500 Heart rate 77 /min VERITO TAM MD [facility] 06-15-2021 20:39-0500 Respiratory rate 16 /min VERITO TAM MD [facility] 06-15-2021 20:39-0500 Systolic blood pressure 108 mm[Hg] VERITO TAM MD [facility] 06-15-2021 19:54-0500 Body temperature 97.7 [degF] VERITO TAM MD [facility] 06-15-2021 19:54-0500 Diastolic blood pressure 72 mm[Hg] VERITO TAM MD [facility] 06-15-2021 19:54-0500 Heart rate 79 /min VERITO TAM MD [facility] 06-15-2021 19:54-0500 Respiratory rate 18 /min VERITO TAM MD [facility] 06-15-2021 19:54-0500 Systolic blood pressure 145 mm[Hg] VERITO TAM MD [facility] 05-16-2021 12:07-0500 Diastolic blood pressure 72 mm[Hg] Dr. Tom Sherman Work Phone: [facility] Work Phone: 05-16-2021 12:07-0500 Heart rate 80 /min Dr. Tom Sherman Work Phone: [facility] Work Phone: 05-16-2021 12:07-0500 Respiratory rate 16 /min Dr. Tom Sherman Work Phone: [facility] Work Phone: 05-16-2021 12:07-0500 SaO2% (BldA) [Mass fraction] 96 % Dr. Tom Sherman Work Phone: [facility] Work Phone: 05-16-2021 12:07-0500 Systolic blood pressure 139 mm[Hg] Dr. Tom Sherman Work Phone: [facility] Work Phone: 05-16-2021 08:53-0500 Body mass index (BMI) [Ratio] 29.9 kg/m2 Dr. Tom Sherman Work Phone: [facility] Work Phone: 05-16-2021 08:53-0500 Body temperature 98.4 [degF] Dr. Tom Sherman Work Phone: [facility] Work Phone: 05-16-2021 08:53-0500 Body weight 81.[address] Tom Sherman Work Phone: [facility] Work Phone: 05-11-2021 15:12-0500 Diastolic blood pressure 65 mm[Hg] Dr. Tom Sherman Work Phone: [facility] Work Phone: 05-11-2021 15:12-0500 Heart rate 60 /min Dr. Tom Sherman Work Phone: [facility] Work Phone: 05-11-2021 15:12-0500 Respiratory rate 16 /min Dr. Tom Sherman Work Phone: [facility] Work Phone: 05-11-2021 15:12-0500 SaO2% (BldA) [Mass fraction] 97 % Dr. Tom Sherman Work Phone: [facility] Work Phone: 05-11-2021 15:12-0500 Systolic blood pressure 137 mm[Hg] Dr. Tom Sherman Work Phone: [facility] Work Phone: 05-11-2021 13:06-0500 Body mass index (BMI) [Ratio] 28.3 kg/m2 Dr. Tom Sherman Work Phone: [facility] Work Phone: 05-11-2021 13:06-0500 Body temperature 97.9 [degF] Dr. Tom Sherman Work Phone: [facility] Work Phone: 05-11-2021 13:06-0500 Body weight 77.[address] Tom Sherman Work Phone: [facility] Work Phone: 05-08-2021 08:00-0500 SaO2% (BldA) [Mass fraction] 94 % Dr. Tom Sherman Work Phone: [facility] Work Phone: 05-08-2021 07:56-0500 Body temperature 98.6 [degF] Dr. Tom Sherman Work Phone: [facility] Work Phone: 05-08-2021 07:56-0500 Diastolic blood pressure 63 mm[Hg] Dr. Tom Sherman Work Phone: [facility] Work Phone: 05-08-2021 07:56-0500 Heart rate 74 /min Dr. Tom Sherman Work Phone: [facility] Work Phone: 05-08-2021 07:56-0500 Respiratory rate 18 /min Dr. Tom Sherman Work Phone: [facility] Work Phone: 05-08-2021 07:56-0500 Systolic blood pressure 119 mm[Hg] Dr. Tom Sherman Work Phone: [facility] Work Phone: 05-08-2021 04:22-0500 Body weight 77.[address] Tom Sherman Work Phone: [facility] Work Phone: 05-07-2021 23:51-0500 Body mass index (BMI) [Ratio] 28.3 kg/m2 Dr. Tom Sherman Work Phone: [facility] Work Phone: 04-24-2021 10:18-0500 Diastolic blood pressure 73 mm[Hg] Dr. Tom Sherman Work Phone: [facility] Work Phone: 04-24-2021 10:18-0500 Heart rate 70 /min Dr. Tom Sherman Work Phone: [facility] Work Phone: 04-24-2021 10:18-0500 Respiratory rate 20 /min Dr. Tom Sherman Work Phone: [facility] Work Phone: 04-24-2021 10:18-0500 SaO2% (BldA) [Mass fraction] 96 % Dr. Tom Sherman Work Phone: [facility] Work Phone: 04-24-2021 10:18-0500 Systolic blood pressure 113 mm[Hg] Dr. Tom Sherman Work Phone: [facility] Work Phone: 04-24-2021 07:51-0500 Body mass index (BMI) [Ratio] 30.9 kg/m2 Dr. Tom Sherman Work Phone: [facility] Work Phone: 04-24-2021 07:51-0500 Body temperature 98 [degF] Dr. Tom Sherman Work Phone: [facility] Work Phone: 04-24-2021 07:51-0500 Body weight 84.[address] Tom Sherman Work Phone: [facility] Work Phone: 04-19-2021 09:29-0500 Diastolic blood pressure 78 mm[Hg] Dr. Tom Sherman Work Phone: [facility] Work Phone: 04-19-2021 09:29-0500 Respiratory rate 16 /min Dr. Tom Sherman Work Phone: [facility] Work Phone: 04-19-2021 09:29-0500 SaO2% (BldA) [Mass fraction] 97 % Dr. Tom Sherman Work Phone: [facility] Work Phone: 04-19-2021 09:29-0500 Systolic blood pressure 132 mm[Hg] Dr. Tom Sherman Work Phone: [facility] Work Phone: 04-19-2021 06:54-0500 Body mass index (BMI) [Ratio] 30 kg/m2 Dr. Tom Sherman Work Phone: [facility] Work Phone: 04-19-2021 06:54-0500 Body temperature 97.8 [degF] Dr. Tom Sherman Work Phone: [facility] Work Phone: 04-19-2021 06:54-0500 Body weight 79.[address] Tom Sherman Work Phone: [facility] Work Phone: 04-19-2021 06:54-0500 Heart rate 68 /min Dr. Tom Sherman Work Phone: [facility] Work Phone: 04-10-2021 12:42-0500 Body mass index (BMI) [Ratio] 28.9 kg/m2 Dr. Tom Sherman Work Phone: [facility] Work Phone: 04-10-2021 12:42-0500 Body weight 78.[address] Tom Sherman Work Phone: [facility] Work Phone: 04-10-2021 12:42-0500 Diastolic blood pressure 72 mm[Hg] Dr. Tom Sherman Work Phone: [facility] Work Phone: 04-10-2021 12:42-0500 Heart rate 94 /min Dr. Tom Sherman Work Phone: [facility] Work Phone: 04-10-2021 12:42-0500 Respiratory rate 18 /min Dr. Tom Sherman Work Phone: [facility] Work Phone: 04-10-2021 12:42-0500 SaO2% (BldA) [Mass fraction] 93 % Dr. Tom Sherman Work Phone: [facility] Work Phone: 04-10-2021 12:42-0500 Systolic blood pressure 118 mm[Hg] Dr. Tom Sherman Work Phone: [facility] Work Phone: Encounters Encounter Date Encounter Type Care Provider Facility Start: 11-26-2024 End: 11-26-2024 Emergency department patient visit Melodie Marian [facility] Facility:[facility] Start: 11-16-2024 End: 11-16-2024 ambulatory Bill Carlos INFANTE Work Phone: Neurology Comment on above: Multiple sclerosis ( HCC) (Primary Dx) Start: 11-16-2024 End: 11-16-2024 Telemedicine consultation with patient Bill Woods NARESH Work Phone: Neurology Start: 11-15-2024 End: 11-15-2024 Telephone encounter Heather Davis MD Work Phone: Pain Management Start: 10-31-2024 End: 11-03-2024 Get Medical Advice Rosa Flores [employer] Work Phone: Endocrinology Comment on above: Refills please Start: 10-26-2024 End: 10-27-2024 Refill Amy Norwood APRN.[employer]ARD MIXER Work Phone: [facility] Comment on above: Refill Request Start: 10-25-2024 End: 10-25-2024 Office outpatient visit 10 minutes Chloe Craig MD Work Phone: [facility] Comment on above: Muscle spasm (Primar y Dx); Nicotine dependence, cigarettes, uncomplicated; Postprocedural state; Spinal stenosis, multiple sites in spine Start: 10-25-2024 End: 10-25-2024 ambulatory CHLOE CRAIG Facility:[id number] Start: 10-25-2024 End: 10-25-2024 Subsequent hospital visit by physician Xr [facility] Comment on above: Low back pain, unspe cified back pain laterality, unspecified chronicity, unspecified whether sciatica present [M54.50] Start: 10-12-2024 End: 10-12-2024 Patient encounter procedure Vaishnavi Soria MD Work Phone: Dermatology Comment on above: Inflamed seborrheic keratosis (Primary Dx); Prurigo nodularis Start: 10-12-2024 End: 10-12-2024 ambulatory VAISHNAVI SORIA Facility:[facility] Start: 10-12-2024 End: 10-12-2024 ambulatory Bill Woods PA-C Work Phone: Neurology Comment on above: Multiple sclerosis ( HCC) (Primary Dx) Start: 10-12-2024 End: 10-12-2024 Telemedicine consultation with patient Bill Woods NARESH Work Phone: Neurology Start: 10-11-2024 End: 10-11-2024 ambulatory Melodie Marina [facility] Facility:[facility] Start: 10-10-2024 End: 10-10-2024 Patient encounter procedure Keith Squires OD Work Phone: Ophthalmology Comment on above: MS (multiple scleros is) (HCC) (Primary Dx); Optic nerve atrophy, bilateral; RPE mottling of macula; Vitreous degeneration of both eyes; Pseudophakia; Refractive error; Presbyopia; Dry eye syndrome of bilateral lacrimal glands; Type 2 diabetes mellitus without retinopathy (HCC) Start: 10-10-2024 End: 10-10-2024 ambulatory KEITH SQUIRES Facility:[facility] Start: 10-06-2024 End: 10-06-2024 [facility] Start: 10-04-2024 End: 10-06-2024 Refill Meka Webb MD Work Phone: Rehab Medicine Comment on above: Refill Request Lidocaine patches Start: 10-03-2024 End: 10-03-2024 ambulatory Melodie [facility] Facility:[facility] Start: 09-29-2024 End: 09-29-2024 ambulatory Melodie [facility] Facility:[facility] Start: 09-26-2024 End: 09-26-2024 ambulatory Melodie [facility] Facility:[facility] Start: 09-21-2024 End: 09-21-2024 Nursing evaluation of patient and report Aubree Hylton RN Work Phone: Endocrinology Comment on above: Controlled type 2 di abetes mellitus without complication, unspecified whether mcfp insulin use (HCC) Start: 09-21-2024 End: 09-21-2024 Patient encounter procedure Rosa Flores [employer] Work Phone: Endocrinology Comment on above: Controlled type 2 di abetes mellitus without complication, unspecified whether mcfp insulin use (HCC) (Primary Dx) Start: 09-21-2024 End: 09-21-2024 major hospital MELODIE LENZBURG Facility:[facility] Start: 09-14-2024 ambulatory [facility] Facility [facility] Start: 09-12-2024 End: 09-12-2024 ambulatory [facility] Facility[facility] Start: 09-08-2024 End: 09-08-2024 Telephone encounter Heather [...] 09-06-2024 End: 09-06-2024 Emergency department patient visit Melodie Marina [facility] Facility:[facility] Start: 09-01-2024 ambulatory HEATHER DAVIS Facility :[facility] Start: 09-01-2024 End: 09-01-2024 Subsequent hospital visit by physician Heather Davis MD Work Phone: Pain Management Comment on above: Sacroiliitis [M46.1] , Chronic right sacroiliac joint pain [M53.3, G89.29] Start: 08-29-2024 End: 08-29-2024 E-mail encounter from caregiver Heather Davis MD Work Phone: Pain Management Start: 08-29-2024 [...] Telephone encounter Bill Woods PA-C Work Phone: [facility] Comment on above: Appointment (Left vo icemail regarding scheduling Neuropysch testing and follow up in late September/early October respectively. [place] number included for call back.) Start: 08-24-2024 End: 08-24-2024 Patient encounter procedure Bill Woods PA-C Work Phone: Neurology Comment on above: Multiple sclerosis ( HCC) (Primary Dx) Start: 08-24-2024 End: 08-24-2024 ambulatory BILL WOODS Facility:[facility] Start: 08-23-2024 End: 08-23-2024 Emergency department patient visit Melodie Marina [facility] Facility:[facility] Start: 08-17-2024 End: 08-17-2024 ambulatory MELODIE MARINA Facility:[facility] Start: 08-16-2024 End: 10-16-2024 Follow-up encounter Bill Woods PA-C Work Phone: [facility] Start: 08-12-2024 ambulatory MELODIE MARINA Facility:[facility] Start: 08-12-2024 End: 08-12-2024 Subsequent hospital visit by physician Mri Radio [facility] (I-Stat/1.5t) Work Phone: Radiology Comment on above: Multiple sclerosis ( HCC) [G35] Start: 08-09-2024 End: 08-10-2024 Refill Bill Woods PA-C Work Phone: [facility] Comment on above: Refill Request Start: 08-05-2024 End: 08-05-2024 Patient encounter procedure Meka Webb MD Work Phone: Rehab Medicine Comment on above: Cervical myelopathy (HCC) (Primary Dx); History of laminectomy; Sacroiliac joint pain; Oth deforming dorsopathies, sacral and sacrococcygeal region Start: 08-05-2024 End: 08-05-2024 ambulatory MEKA WEBB Facility:[facility] Start: 08-04-2024 End: 08-04-2024 Patient encounter procedure Chloe Craig MD Work Phone: [facility] Comment on above: Postprocedural state Start: 08-04-2024 End: 08-04-2024 ambulatory CHLOE CRAIG Facility:[id number] Start: 08-04-2024 End: 08-04-2024 Subsequent hospital visit by physician [facility] Comment on above: S/P lumbar laminecto my [Z98.890] Start: 08-03-2024 End: 08-03-2024 Telephone encounter Bill Woods PA-C Work Phone: [facility] Comment on above: Appointment [facility] so we can move her neuro test to september) Start: 08-03-2024 End: 08-03-2024 ambulatory Bill Woods PA-C Work Phone: Neurology Comment on above: Multiple sclerosis ( HCC) (Primary Dx) Start: 08-03-2024 End: 08-03-2024 Telemedicine consultation with patient Bill Woods PA-C Work Phone: Neurology Start: 08-02-2024 End: 08-02-2024 Refill Jake Kinsey MD, PhD Work Phone: [facility] Comment on above: Refill Request Start: 08-01-2024 End: 08-01-2024 Follow-up encounter Amy Fowler APRN.CNP Work Phone: [facility] Comment on above: Results Start: 08-01-2024 End: 08-01-2024 Telephone encounter Chloe Craig MD Work Phone: [facility] Comment on above: Patient Update (Retu rning call) Start: 08-01-2024 End: 08-01-2024 ambulatory Melodie Marina [facility] Facility:[facility] Start: 07-29-2024 End: 07-29-2024 ambulatory MELODIE MARINA Facility:[facility] Start: 07-29-2024 End: 07-29-2024 Telephone encounter Bill Woods PA-C Work Phone: [facility] Comment on above: Appointment ([facility] so we can get her scheduled for her mris,neuropsychological test and to push her follow up back 1-3 months) Start: 07-29-2024 End: 07-29-2024 ambulatory Melodie Marina [facility] Facility:[facility] Start: 07-28-2024 End: 07-28-2024 E-mail encounter from caregiver Amy Fowler APRN.CNP Work Phone: [facility] Start: 07-28-2024 End: 07-28-2024 ambulatory Amy Fowler APRN.CNP Work Phone: Neurology Comment on above: Multiple sclerosis ( HCC) (Primary Dx); Memory impairment; Dysarthria; Urinary frequency visit summary Start: 07-28-2024 End: 07-28-2024 Telemedicine consultation with patient Amy Fowler MIKE Work Phone: Neurology Start: 07-27-2024 End: 07-27-2024 Telephone encounter Bill Woods PA-C Work Phone: [facility] Comment on above: Appointment (Call we nt right to voicemail, left message regarding MyChart message requesting appointment with Bill Woods. Included in message was [employer] number for call back and notification of appt date/time for patient.) Start: 07-26-2024 End: 08-10-2024 ambulatory Bill Woods PA-C Work Phone: [facility] Comment on above: I need your help Start: 07-22-2024 ambulatory [facility] Facility [facility] Start: 07-22-2024 End: 07-24-2024 Evaluation and management of inpatient [facility] Facility:[facility] Start: 07-19-2024 End: 07-19-2024 Telephone encounter Rosa Flores APRN.LARD MIXER Work Phone: Endocrinology Comment on above: Orders ([place]) Start: 07-18-2024 ambulatory [facility] Start: 07-18-2024 ambulatory Fabriceedd Jean Facility :[facility] Start: 07-13-2024 End: 07-13-2024 ambulatory [facility] Facility:[facility] Start: 07-10-2024 End: 07-10-2024 Emergency department patient visit Jacinto De LunaTamika Facility:[facility] Start: 07-08-2024 End: 07-12-2024 Refill Meka Webb MD Work Phone: Rehab Medicine Comment on above: Refill Request Start: 07-06-2024 End: 07-07-2024 Telephone encounter Rosa Flores APRN.LARD MIXER Work Phone: Endocrinology Comment on above: Patient Update Start: 06-27-2024 End: 06-29-2024 ambulatory Meka Webb MD Work Phone: Rehab Medicine Start: 06-27-2024 End: 06-29-2024 Patient encounter procedure Meka Webb MD Work Phone: Rehab Medicine Comment on above: Appointment Start: 06-25-2024 End: 06-25-2024 Emergency department patient visit Gin Carballo Facility:[facility] Start: 06-21-2024 End: 06-21-2024 ambulatory Melodie Marina [facility] Facility:[facility] Start: 05-27-2024 End: 05-27-2024 ambulatory Rosa Trujillo Cioce [employer] M[employer] Work Phone: Endocrinology Comment on above: Namtabitha Akhtar sandro Start: 05-27-2024 End: 05-27-2024 E-mail encounter from caregiver Rosa Mattaoce [employer] M[employer]ER Work Phone: Endocrinology Start: 05-26-2024 End: 05-26-2024 ambulatory Rosa C Cioce [employer] M[employer] Work Phone: Endocrinology Comment on above: Controlled type 2 di abetes mellitus without complication, unspecified whether terminologist insulin use (HCC) (Primary Dx) Start: 05-26-2024 End: 05-26-2024 Telemedicine consultation with patient Rosa Mattaoce T[employer] M[employer]ER Work Phone: Endocrinology Start: 05-26-2024 End: 05-27-2024 Telephone encounter Rosa Mattaoce T[employer]ARD M[employer]ER Work Phone: Endocrinology Comment on above: Patient Question Start: 05-04-2024 End: 05-04-2024 ambulatory MELODIE MARINA Facility:[facility] Start: 05-04-2024 End: 05-04-2024 Patient encounter procedure Kourtney Purdy OD Work Phone: Ophthalmology Comment on above: MS (multiple scleros is) (HCC) (Primary Dx); Optic nerve atrophy, bilateral; Nonexudative age-related macular degeneration, bilateral, early dry stage; Vitreous degeneration of both eyes; Pseudophakia; Refractive error; Presbyopia Start: 05-03-2024 End: 05-03-2024 ambulatory Melodie Marina [facility] Facility:[facility] Start: 04-18-2024 End: 04-18-2024 ambulatory Rosa Cassandra Flores [employer] M[employer] Work Phone: Endocrinology Comment on above: [place] Start: 04-12-2024 End: 04-13-2024 Refill Meka Webb MD Work Phone: Rehab Medicine Comment on above: Refill Request Lidocaine patches Start: 04-08-2024 End: 04-08-2024 ambulatory HEATHER DAVIS Facility:[facility] Start: 04-08-2024 End: 04-08-2024 Patient encounter procedure Heather Davis MD Work Phone: Pain Management Comment on above: Encounter for long-t erm (current) use of medications (Primary Dx); Chronic, continuous use of opioids; Chronic pain syndrome; Other chronic pain; Neck pain, chronic; Current smoker; History of recent stressful life event Start: 03-30-2024 End: 04-01-2024 Telephone encounter Chloe Craig MD Work Phone: [facility] [employer] Comment on above: Medication refill (O xycodone) Start: 03-29-2024 End: 03-29-2024 ambulatory MEKA WEBB Facility:[facility] Start: 03-29-2024 End: 03-29-2024 Patient encounter procedure Meka Webb MD Work Phone: Rehab Medicine Comment on above: Thoracic myelopathy (Primary Dx); H/O laminectomy; Spasticity; Impairment of balance Start: 03-28-2024 End: 05-04-2024 Telephone encounter Chloe Craig MD Work Phone: [facility] [employer] Comment on above: Patient Question Start: 03-23-2024 End: 03-25-2024 ambulatory MELODIE MARINA Facility:[facility] Start: 03-21-2024 End: 05-04-2024 Refill Chloe Craig MD Work Phone: [facility] [employer] Comment on above: Patient Question (Ox ycodone refill) Start: 03-11-2024 End: 03-14-2024 Telephone encounter Chloe Craig MD Work Phone: [facility] [employer] Comment on above: Patient Question (Pa tient requesting refill on Oxycodone. Returned call to patient, and left message notifying her that Dr. Mackenzie sent refill to pharmacy. Jazlyn Bermudez, ADELFO/) Clinical Chart Notes to DME Start: 03-08-2024 End: 03-08-2024 Office outpatient visit 15 minutes Chloe Craig MD Work Phone: [facility] [employer] Comment on above: Spinal stenosis, mul tiple sites in spine (Primary Dx) Start: 03-08-2024 End: 03-08-2024 ambulatory CHLOE CRAIG Facility:[id number] Start: 03-08-2024 End: 03-08-2024 Subsequent hospital visit by [facility] Comment on above: S/P lumbar laminecto my [Z98.890] Start: 03-04-2024 End: 03-07-2024 Telephone encounter Chloe Craig MD Work Phone: [facility] [employer] Comment on above: Returning Patient's Call (Notified patient that refill on Oxycodone was sent to [facility]. Jazlyn Bermudez, GARAGE DOOR SERVICE TECHNICIAN/) Refill Request Start: 03-04-2024 End: 03-04-2024 ambulatory Bill Woods PA-C Work Phone: [facility] Comment on above: Multiple sclerosis ( HCC) (Primary Dx) Start: 03-04-2024 End: 03-04-2024 Telemedicine consultation with patient Bill Woods PA-C Work Phone: [facility] Start: 03-02-2024 End: 03-08-2024 Telephone encounter Chloe Craig MD Work Phone: [employer] Comment on above: Patient Question (John garcia is requesting a refill on Oxycodone, she has 4 tablets left. ) Start: 03-01-2024 End: 03-01-2024 ambulatory Melodie Marina [facility] Facility[facility] Start: 02-26-2024 End: 02-26-2024 Patient encounter procedure Vaishnavi Soria MD Work Phone: Dermatology Comment on above: Prurigo nodularis (P rimary Dx); MRSA (methicillin resistant Staphylococcus aureus) carrier Start: 02-26-2024 End: 02-26-2024 ambulatory VAISHNAVI SORIA Facility:[facility] Start: 02-24-2024 End: 02-24-2024 ambulatory MELODIE MARINA Facility:[facility] Start: 02-24-2024 End: 02-24-2024 Patient encounter procedure Rosa Flores TUNNEL KILN FIREREvinLARD MIXER Work Phone: Endocrinology Comment on above: Controlled type 2 di abetes mellitus without complication, unspecified whether terminologist insulin use (HCC) (Primary Dx) Start: 02-19-2024 End: 02-19-2024 Telephone encounter Bill Woods PA-C Work Phone: [facility] Start: 02-18-2024 End: 02-22-2024 Evaluation and management of inpatient PANDA CRAIG Facility:[id number] Start: 02-18-2024 End: 02-18-2024 Office outpatient visit 15 minutes Chloe Craig MD Work Phone: [employer] Comment on above: Spinal stenosis, mul tiple sites in spine (Primary Dx); Wound infection after surgery Start: 02-18-2024 End: 02-18-2024 ambulatory CHLOE CRAIG Facility:[id number] Start: 02-17-2024 End: 02-17-2024 Telephone encounter Chloe Craig MD Work Phone: [facility] Comment on above: Patient Update Start: 02-11-2024 End: 02-11-2024 Refill Chloe Craig MD Work Phone: [facility] Comment on above: S/P lumbar laminecto my [Z98.890] Start: 02-11-2024 End: 02-11-2024 Office outpatient visit 15 minutes Chloe Craig MD Work Phone: [facility] Comment on above: Spinal stenosis, mul tiple sites in spine (Primary Dx) Start: 02-10-2024 End: 02-10-2024 Refill Bill Woods PA-C Work Phone: [facility] Comment on above: Refill Request Start: 02-09-2024 End: 02-22-2024 Telephone encounter Miguelangel Singh MD Work Phone: [facility] Comment on above: Orders Start: 02-05-2024 End: 02-08-2024 Telephone encounter Chloe Craig MD Work Phone: [facility] Comment on above: Orders (Oxycodone 5 mg Q 4hrs) Start: 02-02-2024 End: 02-02-2024 Telephone encounter Chloe Craig MD Work Phone: [facility] Comment on above: Patient Update Start: 01-27-2024 End: 01-28-2024 Telephone encounter Miguelangel Singh MD Work Phone: [facility] Comment on above: Refill Request (Juliano boyd in Oxycodone instructions) Start: 01-26-2024 End: 02-05-2024 Orders Only Chloe Craig MD Work Phone: [facility] Comment on above: S/P lumbar laminecto my (Primary Dx) Start: 01-25-2024 End: 02-01-2024 Telephone encounter Chloe Craig MD Work Phone: [facility] Comment on above: Returning Patient's Call (Returned call to patient. Left message with direct phone number to call back. Jazlyn Bermudez LPN/) Patient Question (Ox ycodone-change in dose) Start: 01-20-2024 End: 01-22-2024 [facility] Facility:[id number] Start: 01-07-2024 End: 01-07-2024 Telephone encounter Chloe Craig MD Work Phone: [facility] Comment on above: Results (MRSA) Results (Notified pa tient of +MRSA results. Explained to patient that Dr. Mackenzie will tx her with prophylactic antibiotics. Patient voiced understanding. Jazlyn Bermudez LPN/) Start: 01-06-2024 End: 01-22-2024 Patient encounter status Rosa Flores TUNNEL KILN FIRER.LARD MIXER Work Phone: [facility] Work Phone: Start: 01-06-2024 Encounter for other preprocedural examination [facility] Start: 01-05-2024 End: 01-06-2024 Admission to same day surgery center Rosa Flores TUNNEL KILN FIRER.LARD MIXER Work Phone: Endocrinology Comment on above: Upcoming surgery Start: 01-05-2024 End: 01-05-2024 Telephone encounter Chloe Craig MD Work Phone: [facility] Comment on above: Preparations For Milly vicente (Anti-coagulant instructions) Start: 01-05-2024 End: 01-05-2024 [facility] [address] [facility] Work Phone: Pre Anest[facility] Comment on [...] Patient encounter status Pac 2 Work Phone: [facility] Work Phone: Start: 01-05-2024 End: 01-06-2024 ambulatory Rosa Flores TUNNEL KILN FIRER.[employer]ARD M[employer] Work Phone: Endocrinology Start: 01-04-2024 End: 01-04-2024 ambulatory Melodie Marina [facility] Facility:[facility] Start: 12-30-2023 End: 12-30-2023 Telephone encounter Chloe Craig MD Work Phone: [facility] [employer] [facility] Comment on above: Preparations For Milly vicente (T10-T11 laminectomy, L3-4 laminectomy) Preparations For Milly vicente (Anticoagulants) Start: 12-29-2023 End: 12-29-2023 ambulatory MEKA WEBB Facility:[facility] Start: 12-29-2023 End: 12-29-2023 Patient encounter procedure Meka Webb MD Work Phone: Rehab Medicine Comment on above: 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); Spinal stenosis of lumbar region with neurogenic claudication; Spasticity Start: 12-24-2023 End: 12-24-2023 ambulatory Bill Woods PA-C Work Phone: [facility] Comment on above: Multiple sclerosis ( HCC) (Primary Dx) Start: 12-24-2023 End: 12-24-2023 Telemedicine consultation with patient Bill Woods PA-C Work Phone: [facility] Start: 12-17-2023 End: 12-17-2023 Office outpatient new 45 minutes Chloe Craig MD Work Phone: [facility] [employer] [facility] Comment on above: Spinal stenosis of t horacic region (Primary Dx); Spinal stenosis, lumbar region with neurogenic claudication; Intervertebral thoracic disc disorder with myelopathy, thoracic region Start: 12-17-2023 End: 12-17-2023 ambulatory CHLOE CRAIG Facility:[id number] Start: 12-08-2023 End: 12-08-2023 ambulatory MELODIE MARINA Facility:[facility] Start: 12-08-2023 End: 12-08-2023 Patient encounter procedure Heather Davis MD Work Phone: Pain Management Comment on above: MS (multiple scleros is) (HCC) (Primary Dx); Myofascial pain syndrome; Tobacco dependence; Neck pain; Lumbar pain; Myofascial pain syndrome of lumbar spine; Myofascial pain syndrome, cervical; Other chronic pain; Neck pain, chronic; Encounter for long-term (current) use of medications Start: 12-04-2023 End: 12-04-2023 ambulatory MELODIE MARINA Facility:[facility] Start: 12-04-2023 End: 12-04-2023 Subsequent hospital visit by physician [facility] (I-Stat) Work Phone: Cat Scan Comment on above: Thoracic myelopathy [M47.14] Start: 12-02-2023 ambulatory [facility] Keen [facility] Comment on above: Prescription Update Start: 12-02-2023 E-mail encounter fro m caregiver Efren Keen [facility] Start: 11-30-2023 Telephone encounter Chloe Craig MD Work Phone: [facility] Comment on above: Appointment Start: 11-27-2023 End: 11-27-2023 Office outpatient new 45 minutes Jarred Duarte MD Work Phone: [facility] Comment on above: Spinal stenosis of l umbar region with neurogenic claudication (Primary Dx); Thoracic myelopathy Start: 11-27-2023 End: 11-27-2023 ambulatory MELODIE MARINA Facility:[facility] Start: 11-24-2023 Refill Meka Webb MD Work Phone: Rehab Medicine Comment on above: Refill Request Start: 11-19-2023 End: 11-19-2023 ambulatory VAISHNVAI SORIA Facility:[facility] Start: 11-19-2023 End: 11-19-2023 Patient encounter procedure Vaishnavi Soria MD Work Phone: Dermatology Comment on above: Prurigo nodularis (P rimary Dx); Inflamed seborrheic keratosis Start: 11-10-2023 End: 11-10-2023 Patient encounter procedure [facility] Comment on above: Type 2 diabetes nadia itus with other specified complication, without long-term current use of insulin (HCC); 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); Malaise and fatigue Start: 11-10-2023 End: 11-10-2023 Patient encounter procedure Bill Woods PA-C Work Phone: [facility] Comment on above: Immunosuppression du e to drug therapy (HCC) (HCC) (Primary Dx); Malaise and fatigue; Multiple sclerosis (HCC) Start: 11-03-2023 End: 11-03-2023 Patient encounter procedure Kourt[facility] Purdy OD [facility] Comment on above: MS (multiple scleros is) [...] keratosis Start: 10-09-2023 Telephone encounter Rosa martell APRN.LARD MIXER Work Phone: Endocrinology Comment on above: eye exam records Start: 10-07-2023 Refill Rosa Flores TUNNEL KILN FIRER.[place] Work Phone: Endocrinology Comment on above: Refill Request Start: 09-24-2023 End: 09-24-2023 Patient encounter procedure Lab Neur [facility] Comment on above: Immunosuppression du e to drug therapy (HCC) (HCC); Malaise and fatigue; Multiple sclerosis (HCC) Immunosuppression du e to drug therapy (HCC) (HCC) (Primary Dx); Malaise and fatigue; Multiple sclerosis (HCC) Start: 09-16-2023 ambulatory Meka Webb MD Work Phone: Rehab Medicine Comment on above: Mri Start: 09-16-2023 End: 09-16-2023 Subsequent hospital visit by physician Mri [facility] (I-Stat/1.5t) Work Phone: Radiology Comment on [...] smoker Start: 09-09-2023 Telephone encounter Rosa martell TUNNEL KILN FIRER.[place] Work Phone: Endocrinology Comment on above: DWO Form Start: 09-07-2023 Telephone encounter Bill jo PA-C Work Phone: [facility] Comment on above: Patient Question (John garcia has MS related questions) Start: 08-28-2023 Refill Jake Kinsey MD, PhD Work Phone: [facility] Comment on above: Refill Request Patient Update (Pt c alling to follow up with her Demian with Coordinator) Start: 08-27-2023 ambulatory Rosa Flores APRN.[place] Work Phone: Endocrinology Comment on above: Janay three Meter Start: 08-24-2023 Specialty Pharmacy Lauren Hanley [facility] Comment on above: SPP Neurology - Medi cation Refill (Kesimpta) Start: 08-19-2023 Telephone encounter Rosa martell TUNNEL KILN FIRER.[place] Work Phone: Endocrinology Comment on above: Orders ([facility] ord er) Start: 08-19-2023 End: 08-19-2023 Patient encounter procedure Rosa Flores TUNNEL KILN FIRER.LARD MIXER Work Phone: Endocrinology Comment on above: Type 2 diabetes nadia itus with other specified complication, without long-term current use of insulin (HCC) (Primary Dx) Start: 08-12-2023 ambulatory Bill Arrington Work Phone: [facility] Comment on above: Slurred speech Start: 08-11-2023 Telephone encounter Bill jo PA-C Work Phone: [facility] Comment on above: Symptoms (Slurred sp eech) Start: 08-11-2023 End: 08-11-2023 Patient encounter procedure Heather Davis MD Work Phone: Pain Management Comment on above: MS (multiple scleros is) (HCC) (Primary Dx); Paroxysmal A-fib (HCC); Myofascial pain syndrome; Myofascial pain syndrome of lumbar spine; Myofascial pain syndrome, cervical; Myofascial pain; Current smoker; Lumbar back pain Start: 08-06-2023 End: 08-06-2023 Patient encounter procedure Bill Woods PA-C Work Phone: [facility] Comment on above: Multiple sclerosis ( HCC) (Primary Dx) Start: 07-31-2023 Telephone encounter Bill jo PA-C Work Phone: [facility] Comment on above: Medication Problem; Symptoms Start: 07-27-2023 End: 07-27-2023 Subsequent hospital visit by physician Mri Radio [facility] (I-Stat/1.5t) Work Phone: Radiology Comment on above: Chronic midline low back pain without sciatica [M54.50, G89.29] Start: 07-22-2023 Specialty Pharmacy Lauren Hanley [facility] Comment on above: SPP Neurology - Medi cation Refill (Kesimpta) Start: 07-17-2023 Refill Jake Kinsey MD, PhD Work Phone: [facility] Comment on above: Refill Request Start: 07-09-2023 [...] Telephone encounter Bill jo PA-C Work Phone: [facility] Comment on above: Patient Question Start: 04-03-2023 End: 04-03-2023 Patient encounter procedure Heather Davis MD Work Phone: Pain Management Comment on above: Myofascial pain (Janeth gagan Dx); Current smoker; Other kyphosis of thoracic region; Abnormal posture; Abnormal increased muscle tightness; Tobacco dependence; Anxiety and depression Start: 03-18-2023 Specialty Pharmacy E[facility]ren Keen [facility] Comment on above: SPP Neurology - Medi cation Refill (Kesimpta ) Start: 03-12-2023 ambulatory Rosa Flores TUNNEL KILN FIRER.LARD MIXER Work Phone: Endocrinology Comment on above: Medication Start: 03-12-2023 E-mail encounter juan pablo hidalgo caregiver Rosa Flores TUNNEL KILN FIRER.LARD MIXER Work Phone: [facility] Start: 03-12-2023 Telephone encounter Rosa martell TUNNEL KILN FIRER.LARD MIXER Work Phone: Endocrinology Comment on above: Ozempic Denial Medication Problem Start: 03-11-2023 End: 03-11-2023 Patient encounter procedure Heather Davis MD Work Phone: Pain Management Comment on above: Myofascial pain (Janeth gagan Dx); Myofascial neck pain; Tight unbalanced muscles; Other chronic pain; History of fusion of cervical spine; MS (multiple sclerosis) ([facility]); Current smoker; Chronic anticoagulation; BMI 26.0-26.9,adult Start: 03-10-2023 ambulatory Bill Arrington Work Phone: [facility] Comment on above: New med Start: 03-04-2023 Refill Bill Arrington Work Phone: [facility] Comment on above: Refill Request Refill Request (Pt i s requesting an early refill on her Modafinil to be picked up from pharmacy on 03/10/23 leaving state) Provigil Patient Request (For Janay 3) Start: 03-02-2023 Telephone encounter Bill jo PA-C Work Phone: [facility] Comment on above: Return Call Request Patient Update Start: 02-23-2023 ambulatory oRsa Flores TUNNEL KILN FIRER.LARD MIXER Work Phone: Endocrinology Comment on above: Ozempic Start: 02-18-2023 End: 02-18-2023 Patient encounter procedure Vaishnavi Soria MD Work Phone: Dermatology Comment on above: Folliculitis (Primar y Dx) Start: 02-16-2023 ambulatory Bill Arrington Work Phone: [facility] Comment on above: Skin lesions Start: 02-13-2023 Specialty Pharmacy [facility] Keen [facility] Comment on above: SPP Neurology - Medi cation Refill (Kesimpta) Start: 02-11-2023 End: 02-11-2023 Patient encounter procedure Rosa Flores TUNNEL KILN FIRER.LARD MIXER Work Phone: Endocrinology Comment on above: Controlled type 2 di abetes mellitus without complication, unspecified whether mcfp insulin use (HCC) (Primary Dx) Start: 02-04-2023 Telephone encounter Bill jo PA-C Work Phone: [facility] Comment on above: Referral Information (Outcome of NMSS Referral) Start: 02-03-2023 Telephone encounter Bill jo PA-C Work Phone: [facility] Comment on above: Patient Update Start: 01-30-2023 ambulatory Meka Webb MD Work Phone: [facility] Start: 01-30-2023 Follow-up encounter Meka ruiz MD Work Phone: Spine Medicine Comment on above: Follow up appointmen t Start: 01-29-2023 End: 01-29-2023 Patient encounter procedure Bill LOPEZ-C Work Phone: [facility] Comment on above: Multiple sclerosis ( HCC) (Primary Dx) Start: 01-28-2023 Telephone encounter Bill jo PA-C Work Phone: [facility] Comment on above: Patient Question Start: 01-26-2023 End: 01-26-2023 Patient encounter procedure Fawad Simmons TUNNEL KILN FIRER.LARD MIXER Work Phone: Neurology Comment on above: Cognitive [...] 01-15-2023 Subsequent hospital visit by physician Isaias Parrish Bldg Work Phone: Radiology Comment on above: S/P lumbar fusion [Z 98.1] Start: 01-15-2023 End: 01-15-2023 Patient encounter procedure Meka Webb MD Work Phone: Spine Medicine Comment on above: Postural kyphosis of thoracic region (Primary Dx); 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; Cervical vertebral fusion; S/P lumbar fusion Start: 01-14-2023 End: 01-15-2023 ambulatory Efren Keen [facility] Start: 01-14-2023 End: 01-14-2023 Patient encounter procedure Bill Woods PA-C Work Phone: Neurology Comment on above: Malaise and fatigue (Primary Dx); Lesion of skin of face; Skin sore; Multiple sclerosis (HCC) SPP Neurology - Medi cation Refill (Kesimpta) Start: 01-13-2023 Telephone encounter Bill jo PA-C Work Phone: [facility] Comment on above: Returning Patient's Call Start: 01-07-2023 End: 01-07-2023 [facility] Work Phone: Radiology Comment on above: Multiple sclerosis ( HCC) [G35] Start: 01-06-2023 ambulatory Bill Corbin A-C Work Phone: Neurology Comment on above: L Losartan Start: 12-22-2022 Telephone encounter Jake adame MD, PhD Work Phone: [facility] Start: 12-19-2022 Specialty Pharmacy E[facility] Keen [facility] Comment on above: SPP Neurology - Medi cation Refill (Kesimpta) Symptoms Start: 2022 Telephone encounter Bill jo PA-C Work Phone: [facility] Comment on above: Medication Problem Start: 12-11-2022 Telephone encounter Neurology Provid er Neurology Start: 12-10-2022 ambulatory Rosa Flores TUNNEL KILN FIRER.LARD MIXER Work Phone: Endocrinology Comment on above: Ozempic Start: 12-10-2022 Telephone encounter Jake adame MD, PhD Work Phone: [facility] Comment on above: Appointment Start: 12-10-2022 End: 12-10-2022 Patient encounter procedure Heather Davis MD Work Phone: Pain Management Comment on above: Other chronic pain ( Primary Dx); MS (multiple sclerosis) (HCC); Paroxysmal A-fib (HCC); Tobacco dependence; BMI 28.0-28.9,adult; Personal history of spine surgery; H/O insulin dependent diabetes mellitus Start: 12-04-2022 Chart abstracting Bill Woods PA-C Work Phone: [facility] Comment on above: Orders (Speech Thera py) Start: 12-03-2022 End: 12-03-2022 Patient encounter procedure Bill Woods PA-C Work Phone: Neurology Comment on above: Sleep apnea, unspeci fied type (Primary Dx); Multiple sclerosis (HCC); Dysarthria Start: 11-25-2022 ambulatory Bill Jimenez-C Work Phone: Neurology Comment on above: Eye scan Start: 11-24-2022 ambulatory [facility] Start: 11-24-2022 Telephone encounter Jake adame MD, PhD Work Phone: [facility] Comment on above: Symptoms SPP Neurology - Medi cation Refill (Kesimpta) Start: 11-21-2022 Telephone encounter Billtoño jo PA-C Work Phone: [facility] Comment on above: Orders Start: 11-21-2022 End: 11-21-2022 Patient encounter procedure Oct Exam Tech [facility] Work Phone: [facility] Comment on above: Multiple sclerosis ( HCC) (Primary Dx) Start: 11-20-2022 Telephone encounter Billtoño jo PA-C Work Phone: [facility] Comment on above: Symptoms Start: 11-04-2022 End: 11-04-2022 Patient encounter procedure Heather Davis MD Work Phone: Pain Management Comment on above: Chronic pain of left knee (Primary Dx); History of torn meniscus of left knee; History of medial meniscus repair of left knee; Congenital retroversion of both femurs; MS (multiple sclerosis) (HCC); Current smoker; Current use of terminologist anticoagulation Start: 10-24-2022 ambulatory Bill Jimenez-Cassandra Work Phone: Neurology Comment on above: Spine doctor Start: 10-16-2022 ambulatory Rosa Trujillo Cioce TUNNEL KILN FIRER.LARD MIXER Work Phone: Endocrinology Comment on above: Test results Start: 10-16-2022 Patient encounter procedure Bill Woods PA-C Work Phone: Neurology Comment on above: Referral to pain man agement Start: 10-13-2022 Telephone encounter Rosa Trujillo C ioce TUNNEL KILN FIRER.LARD MIXER Work Phone: Endocrinology Comment on above: [facility] Start: 10-08-2022 ambulatory Rosa C Cioce TUNNEL KILN FIRER.LARD MIXER Work Phone: Endocrinology Comment on above: Glucose Start: 05-30-2023 Specialty Pharmacy E[facility]ren Keen [facility] Comment on above: SPP Neurology - Medi cation Refill (Kesimpta) Start: 09-03-2022 End: 09-03-2022 Patient encounter procedure Bill Woods PA-C Work Phone: Neurology Comment on above: Multiple sclerosis ( HCC) (Primary Dx); DDD (degenerative disc disease), thoracic Start: 08-27-2022 ambulatory Rosa Mattaoce TUNNEL KILN FIRER.LARD MIXER Work Phone: Endocrinology Comment on above: Osemptic Start: 08-27-2022 Telephone encounter Bill jo PA-C Work Phone: [facility] Comment on above: Results Start: 08-26-2022 ambulatory Bill Arrington Work Phone: Neurology Comment on above: Not feeling good Start: 08-22-2022 End: 08-22-2022 Subsequent hospital visit by physician Mri Radio [facility] (I-Stat/1.5t) Work Phone: Radiology Comment on above: Multiple sclerosis ( HCC) [G35] Start: 08-06-2022 ambulatory Rosa C Cioce TUNNEL KILN FIRER.LARD MIXER Work Phone: Endocrinology Comment on above: blood sugars, or gavi betic medicine Start: 08-06-2022 E-mail encounter juan pablo m caregiver Rosa Mattaoce TUNNEL KILN FIRER.LARD MIXER Work Phone: [facility] Start: 08-06-2022 End: 08-06-2022 Patient encounter procedure Rosa C Cioce TUNNEL KILN FIRER.LARD MIXER Work Phone: Endocrinology Comment on above: Type [...] Multiple sclerosis ( HCC) (Primary Dx) Start: 07-29-2022 Telephone encounter Bill jo PA-C Work Phone: [facility] Comment on above: Results Start: 07-19-2022 ambulatory Bill Arrington Work Phone: [facility] Comment on above: Me Flare up Start: 07-15-2022 Specialty Pharmacy E[facility] Keen [facility] Comment on above: SPP Neurology - Medi cation Refill (Kesimpta) Start: 06-27-2022 End: 06-27-2022 Subsequent hospital visit by physician Mri Main [facility] (1.5t) Work Phone: Radiology Comment on above: Canceled (Pt cx: Res cheduled) Start: 05-23-2022 Chart abstracting Bill Woods PA-C Work Phone: [facility] Comment on above: Medication Preauthor ization (Modafinil 200 mg.) Start: 04-02-2022 End: 04-02-2022 Emergency department patient [facility]. Tom Sherman [facility] Start: 04-01-2022 End: 04-01-[address] Tom Sherman Work Phone: [facility] Start: 03-05-2022 Specialty Pharmacy Hugo Porter [facility] Comment on above: SPP Neurology - Medi cation Refill (Kesimpta) Start: 02-11-2022 End: 02-11-2022 Patient encounter procedure Bill Woods PA-C Work Phone: [facility] Comment on above: Multiple sclerosis ( HCC) (Primary Dx) Start: 02-07-2022 End: 02-07-2022 Emergency department patient visit Dr. Tom Sherman [facility] Start: 01-14-2022 End: 01-14-[address] Tom Sherman Work Phone: [facility] Start: 01-07-2022 End: 01-07-[address] Tom Sherman Work Phone: [facility] Start: 12-24-2021 End: 12-24-[address] Tom Sherman Work Phone: [facility] Start: 11-20-2021 Non-patient / Non-visit Dr. Shakir Sherman Work Phone: [facility] Start: 11-19-2021 Non-patient / Non-visit Dr. Shakir Sherman Work Phone: [facility] Start: 11-18-2021 Non-patient / Non-visit Dr. Shakir Sherman Work Phone: [facility] Start: 11-17-2021 Non-patient / Non-visit Dr. Shakir Sherman Work Phone: [facility] Start: 11-16-2021 End: 11-20-2021 Non-patient / Non-visit Dr. Tom Sherman Work Phone: [facility] Start: 11-16-2021 End: 11-20-2021 Evaluation and management of inpatient Dr. Tom Sherman Work Phone: [facility] Start: 11-08-2021 ambulatory Lisa Taylor [facility] Comment on above: SPP Neurology - Disc ontinuation Of Therapy (Aubagio) Start: 11-06-2021 [facility] Comment on above: SPP Neurology - Medi cation Refill (Kesimpta) Start: 11-05-2021 End: 11-05-[address] Tom Sherman Work Phone: [facility] Start: 10-10-2021 End: 10-10-[address] Tom Sherman Work Phone: [facility] Start: 10-07-2021 End: 10-07-2021 Emergency department patient visit Dr. Tom Sherman Work Phone: [facility] Start: 10-03-2021 Telephone encounter Bill jo PA-C Work Phone: [facility] Comment on above: Kesimpta FDO Start: 09-20-2021 End: 09-20-[address] Tom Sherman Work Phone: [facility] Start: 09-11-2021 Telephone encounter Bill LOPEZ-Cassandra Work Phone: [facility] Comment on above: Medication Question Start: 08-21-2021 End: 08-21-2021 Emergency department patient visit Dr. Tom Sherman Work Phone: [facility] Start: 08-21-2021 End: 08-21-2021 Dr. [facility] Start: 08-09-2021 Specialty Pharmacy Efren Keen [facility] Comment on above: SPP Neurology - Medi cation Refill (Aubagio) Start: 08-08-2021 End: 08-08-[address] Tom Sherman Work Phone: [facility] Start: 08-08-2021 End: 08-08-2021 Dr. Tom Sherman Work Phone: [facility] Start: 07-31-2021 Non-patient / Non-visit Dr. Shakir Sherman Work Phone: [facility] Start: 07-31-2021 End: 07-31-[address] Tom Sherman Work Phone: [facility] Start: 07-31-2021 End: 07-31-2021 Dr. Tom Sherman Work Phone: [facility] Start: 07-30-2021 End: 07-30-[address] Tom Sherman Work Phone: [facility] Start: 07-30-2021 End: 07-30-2021 Dr. Tom Sherman Work Phone: [facility] Start: 07-03-2021 End: 07-03-[address] [facility] Start: 07-03-2021 End: 07-03-2021 Dr. [facility] Sherman [facility] Start: 06-25-2021 End: 06-25-[address] [facility] Sherman [facility] Start: 06-25-2021 End: 06-25-2021 Dr. [facility] Sherman [facility] Start: 06-22-2021 End: 06-22-2021 Emergency department patient visit Dr. Tom Sherman Work Phone: [facility] Start: 06-22-2021 End: 06-22-2021 Dr. Tom Sherman Work Phone: [facility] Start: 06-15-2021 End: 06-15-2021 Emergency department patient visit VERITO TAM MD [facility] Start: 05-16-2021 End: 05-16-2021 Dr. Tom Sherman Work Phone: [facility] Start: 05-11-2021 End: 05-11-2021 Dr. Tom Sherman Work Phone: [facility] Start: 05-08-2021 Dr. Tom Sherman Work Phone: [facility] Start: 05-08-2021 Dr. Tom Sherman Work Phone: [facility] Start: 05-07-2021 End: 05-08-2021 Dr. Tom Sherman Work Phone: [facility] Start: 04-24-2021 End: 04-24-2021 Dr. Tom Sherman Work Phone: [facility] Start: 04-19-2021 End: 04-19-2021 Dr. Tom Sherman Work Phone: [facility] Start: 04-10-2021 End: 04-10-2021 Dr. Tom Sherman Work Phone: [facility] Start: 06-04-2020 End: 06-04-2020 Orders Only Angela Fatuma Schwarz Work Phone: [facility] Start: 01-31-2020 End: 01-31-2020 Patient encounter procedure CHRISTA GUPTA [facility] Start: 06-02-2018 End: 06-02-2018 Emergency department patient visit TJ MEDRANO Facility:[facility] Start: 01-19-2018 End: 01-21-2018 Patient encounter Unknown PCP Facility:UNKNOWN Start: 12-19-2017 End: 12-31-2017 Evaluation and management of inpatient Svetlana Mas Facility:[facility] Start: 12-02-2017 End: 12-10-2017 Evaluation and management of inpatient Yeison Pike Facility:[facility] Start: 08-09-2017 Patient encounter procedure Anjana Welch Facility:[facility] Start: 07-27-2017 End: 07-27-2017 Emergency department patient visit Erik Hemphill Facility:[facility] Start: 07-26-2017 End: 07-26-2017 Ambulatory Eliseo Joyce Work Phone: [facility] Start: 07-23-2017 Patient encounter procedure Anjana Welch Facility:[place] Start: 07-23-2017 End: 07-23-2017 Ambulatory Anjana Welch Work Phone: [facility] Start: 07-14-2017 End: 07-14-2017 [facility] Work Phone: [facility] Start: 07-03-2017 End: 07-10-2017 Evaluation and management of inpatient Svetlana Mas Facility:[facility] Start: 05-26-2017 Ambulatory Enid Reagan Facilit y:[facility] Start: 05-01-2017 Ambulatory Dayne L Dari Facilit y:[facility] Start: 03-31-2017 Ambulatory Dayne L Dari Facilit y:[facility] Start: 12-30-2016 Ambulatory Gautametta Reagan Facilit y:[facility] Procedures Date Procedure Procedure Detail Performing Clinician [...] Comment: Speci men Type: BLOOD SPECIMENOrdering Facility: [facility] Address: [address] [place] [address] Performed By: #### T [id number] ####[facility] BLOOD BANKCLIA [id number] [address] OF [place] Start: 01-05-2024 Antibody screen rbc [...] brain brain stem w/o w/contrast material Bill Young PA-C Work Phone: Start: 08-06-2022 Hemoglobin A1c/Hemoglobin.total in Blood Rosa C Cioce TUNNEL KILN FIRER.LARD MIXER Work Phone: Start: 04-02-2022 Plain chest X-ray [...] Electrocardiogram Unkno wn PCP Start: 01-19-2018 End: 09-25-2018 Electrocardiogram Unknown PCP Start: 04-08-2016 History of [...] Start: 10-10-2025 Glaucoma screening Dilated Retinal Exam [facility] Start: 09-21-2025 BP Controlled (<130/80) BP Controlled (<130/80) [facility] Start: 08-05-2025 BP Controlled (<130/80) BP Controlled (<130/80) [facility] Start: 07-29-2025 Hepatitis B screening Urine Albumin:Creatinine Ratio [facility] Start: 07-29-2025 Hepatitis B surface antibody level LDL Cholesterol [facility] Start: 05-12-2025 End: 05-12-2025 Patient encounter procedure 05/12/2025 10:30 AM EST Office Visit [facility] Ophthalmology [address] [place], [place] [id number] Keith Squires, OD [address] [place] [address] 7 mth f/u for complete eye exam with 30-2, nerve/ mac OCT(30 min) Ophthalmology Comment on above: 7 mth f/u for complete eye exam with 30- 2, nerve/ mac OCT(30 min) Start: 05-09-2025 End: 05-09-2025 Patient encounter procedure 05/09/2025 10:00 AM EST Office Visit [facility] Ophthalmology [address] [place] [address] DannytremaineKourtney ríos, OD [address] [place] [address] Return in about 1 year (around 05/04/2025) for comprehensive exam. Ophthalmology Comment on above: Return in about 1 year (around 05/04/2025) for comprehensive exam. Start: 05-04-2025 Glaucoma screening Dilated Retinal Exam [facility] Start: 04-08-2025 BP Controlled (<130/80) BP Controlled (<130/80) [facility] Start: 03-29-2025 BP Controlled (<130/80) BP Controlled (<130/80) [facility] Start: 03-29-2025 End: 03-29-2025 Patient encounter procedure 03/29/2025 9:15 AM EST Office Visit Endocrinology [address] [place] [address] Rosa Flores, CHERI.LARD MIXER [address] [place] [address] 6 MO OV Endocrinology Comment on above: 6 MO OV Start: 03-08-2025 BP Controlled (<130/80) BP Controlled (<130/80) [facility] Start: 02-28-2025 ambulatory Ambulatory Facility:[facility] Start: 02-23-2025 BP Controlled (<130/80) BP Controlled (<130/80) [facility] Start: 01-28-2025 Hemoglobin A1c measurement HbA1C [facility] Start: 01-04-2025 BP Controlled (<130/80) BP Controlled (<130/80) [facility] Start: 12-28-2024 BP Controlled (<130/80) BP Controlled (<130/80) [facility] Start: 12-26-2024 Influenza vaccination [facility] Start: 12-23-2024 End: 12-23-2024 Patient encounter procedure 12/23/2024 4:30 PM EDT Office Visit Pain Management [address] [place] [address] Kellee Zapata PA-C [address] [place] [address] CONSULT TO PAIN MGT Pain Management Comment on above: CONSULT TO PAIN MGT Start: 12-16-2024 BP Controlled (<130/80) BP Controlled (<130/80) [facility] Start: 12-15-2024 End: 12-15-2024 Admission to same day surgery center 12/15/2024 8:52 AM EDT - 12/15/2024 9:41 AM EDT Surgery Pain Management [address] [place] [address] Heather Davis MD [address] [address] BLOCK SACROILIAC WITH C-ARM Pain Management Comment on above: BLOCK SACROILIAC WITH C-ARM Start: 12-15-2024 End: 12-15-2024 Inject si joint arthrgrphy&/anes/steroi d w/jany BLOCK SACROILIAC WITH C-ARM Chronic right sacroiliac joint pain Sacroiliitis 12/15/2024 8:52 AM EDT [facility] Start: 12-15-2024 Subsequent hospital visit by physician 12/15/2024 8:52 AM EDT Hospital Encounter Pain Management [address] [place] [address] Heather Davis MD [address] [facility] [address] [address] Chronic right sacroiliac joint pain [M53.3, G89.29], Sacroiliitis [M46.1] Pain Management Comment on above: Chronic right sacroiliac joint pain [M53 .3, G89.29], Sacroiliitis [M46.1] Start: 12-14-2024 End: 12-14-2024 Patient encounter procedure 12/14/2024 1:45 PM EDT Office Visit Dermatology [address] [place], [place] [id number] Vaishnavi Soria MD [address] [place] [address] [address] [place], [place] [id number] 2 months (around 2024) for follow up. Dermatology Comment on above: 2 months (around 2024) for follow u p. Start: 12-07-2024 BP Controlled (<130/80) BP Controlled (<130/80) [facility] Start: 11-29-2024 ambulatory Ambulatory Facility:[facility] Start: 11-23-2024 End: 11-23-2024 Patient encounter procedure Neuropyschology Comment on above: Multiple sclerosis (HCC) [G35] Start: 11-16-2024 End: 11-16-2024 Follow-up encounter 11/16/2024 2:30 PM EDT [facility] [address] [place], [place] [id number] Bill Woods PA-C [address] [place] [address] MS follow up Neurology Comment on above: MS follow up Start: 11-09-2024 BP Controlled (<130/80) BP Controlled (<130/80) [facility] Start: 11-09-2024 Hepatitis B surface antibody level LDL Cholesterol [facility] Start: 11-02-2024 Glaucoma screening Dilated Retinal Exam [facility] Start: 10-12-2024 End: 10-12-2024 Patient encounter procedure 10/12/2024 1:30 PM EDT Office Visit Dermatology [address] [place] [address] [address] [place], [place] [id number] Vaishnavi Soria MD [address] [place] [address] [address] [place], [place] [id number] Return in about 6 weeks (around 10/10/2024) Dermatology Comment on above: Return in about 6 weeks (around ) Start: 10-11-2024 End: 10-11-2024 ambulatory 10/11/2024 8:00 AM EDT [facility] [address] [address] Bill Woods PA-C [address] [place] [address] Trouble with vision [facility] Comment on above: Trouble with vision Start: 10-10-2024 End: 10-10-2024 Patient encounter procedure 10/10/2024 3:00 PM EDT Office Visit [facility] Ophthalmology [address] [place] [address] Keith Squires, OD [address] [place] [address] change in vision past 2 days(DR. 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 Purdy pt-) has dx optic nerve atrophy Wants to be seen locally Start: 09-30-2024 Glaucoma screening Dilated Retinal Exam [facility] Start: 09-21-2024 End: 09-21-2024 Patient encounter procedure 09/21/2024 7:15 AM EDT Office Visit Endocrinology [address] [place] [address] Rosa Flores, TUNNEL KILN FIRER.LARD MIXER [address] [place] [address] New diagnosis - Pancreatitis Endocrinology Comment on above: New diagnosis - Pancreatitis Start: 09-14-2024 BP Controlled (<130/80) BP Controlled (<130/80) [facility] Start: 09-01-2024 End: 09-01-2024 Admission to same day surgery center 09/01/2024 2:25 PM EDT - 09/01/2024 3:09 PM EDT Surgery Pain Management [address] [place] [address] Heather Davis MD [address] [facility] [address] [place], [place] [id number] BLOCK SACROILIAC WITH C-ARM Pain Management Comment on above: BLOCK SACROILIAC WITH C-ARM Start: 09-01-2024 End: 09-01-2024 Inject si joint arthrgrphy&/anes/steroi d w/jany BLOCK SACROILIAC WITH C-ARM Sacroiliitis Chronic right sacroiliac joint pain 09/01/2024 2:25 PM EDT [facility] Start: 09-01-2024 Subsequent hospital visit by physician 09/01/2024 2:25 PM EDT Hospital Encounter Pain Management [address] [place] [address] Heather Davis MD [address] [address] Sacroiliitis [M46.1], Chronic right sacroiliac joint pain [M53.3, G89.29] Pain Management Comment on above: Sacroiliitis [M46.1], Chronic right sacr oiliac joint pain [M53.3, G89.29] Start: 08-29-2024 End: 08-29-2024 Patient encounter procedure 08/29/2024 11:45 AM EDT Office Visit Dermatology [address] [place] [address] [address] [place], [place] [phone] Vaishnavi Soria MD [address] [place] [address] [address] [place], [place] [phone] Return in about 6 months (around 08/25/2024) Dermatology Comment on above: Return in about 6 months (around ) Start: 08-25-2024 End: 08-25-2024 Admission to same day surgery center 08/25/2024 8:57 AM EDT - 08/25/2024 9:41 AM EDT Surgery Pain Management [address] [place] [address] Heather Davis MD [address] [facility] [address] [address] BLOCK SACROILIAC WITH C-ARM Pain Management Comment on above: BLOCK SACROILIAC WITH C-ARM Start: 08-25-2024 End: 08-25-2024 Inject si joint arthrgrphy&/anes/steroi d w/jany BLOCK SACROILIAC WITH C-ARM Sacroiliitis Chronic right sacroiliac joint pain 08/25/2024 8:57 AM EDT [facility] Start: 08-25-2024 Subsequent hospital visit by physician 08/25/2024 8:57 AM EDT Hospital Encounter Pain Management [address] [place] [address] Heather Davis MD [address] [facility] [address] [place] [address] Sacroiliitis [M46.1], Chronic right sacroiliac joint pain [M53.3, G89.29] Pain Management Comment on above: Sacroiliitis [M46.1], Chronic right sacr oiliac joint pain [M53.3, G89.29] Start: 08-24-2024 End: 08-24-2024 Follow-up encounter 08/24/2024 11:00 AM EDT [facility] Neurology [address] [place] [address] Bill Woods PA-C [address] [place] [address] Follow Up Neurology Comment on above: Follow Up Start: 08-18-2024 BP Controlled (<130/80) BP Controlled (<130/80) [facility] Start: 08-17-2024 End: 08-17-2024 Patient encounter procedure Pain Management Comment on above: Discuss Pain NPT MS Start: 08-12-2024 End: 08-12-2024 Patient encounter procedure Radiology Comment on above: MRI BRAIN WO IVCON MRI CERVICAL SPINE W O IVCON Start: 08-10-2024 BP Controlled (<130/80) BP Controlled (<130/80) [facility] Start: 08-05-2024 End: 08-05-2024 Patient encounter procedure 08/05/2024 12:20 PM EDT Office Visit Rehab Medicine [address] [place] [address] Meka Webb MD [address] [place] [address] Follow up Rehab Medicine Comment on above: Follow up Start: 08-04-2024 End: 08-04-2024 Patient encounter procedure 08/04/2024 10:00 AM EDT Office Visit [facility] [address] [place] [address] Chloe Mackenzie MD [address] [place] [address] 6month F/U [facility] Comment on above: 6month F/U Start: 08-03-2024 End: 08-03-2024 Follow-up encounter 08/03/2024 11:00 AM EDT [facility] Neu[facility] [address] [place], [place] [id number] Bill Woods PA-C [address] [place] [address] Follow Up Neurology Comment on above: Follow Up Start: 07-28-2024 End: 10-27-2024 Bacteria identified in Urine by Culture BACTERIAL CULTURE, URINE Microbiology Routine Multiple sclerosis (HCC) Memory impairment Urinary frequency Expected: 07/28/2024, Expires: 10/27/2024 [facility] Work Phone: Comment on above: Expected: 07/28/2024, Expires: Start: 07-28-2024 End: 10-27-2024 CBC W Auto Differential panel - Blood COMPLETE BLOOD COUNT AND DIFFERENTIAL Lab Routine Multiple sclerosis (HCC) Memory impairment Urinary frequency Expected: 07/28/2024, Expires: 10/27/2024 [facility] Comment on above: Expected: 07/28/2024, Expires: Start: 07-28-2024 End: 10-27-2024 Comprehensive metabolic 2000 panel - Serum or Plasma COMPREHENSIVE METABOLIC PANEL Lab Routine Multiple sclerosis (HCC) Memory impairment Urinary frequency Expected: 07/28/2024, Expires: 10/27/2024 [facility] Comment on above: Expected: 07/28/2024, Expires: Start: 07-28-2024 End: 10-27-2024 Urinalysis complete panel - Urine URINALYSIS, WITH MICROSCOPIC Lab Routine Multiple sclerosis (HCC) Memory impairment Urinary frequency Expected: 07/28/2024, Expires: 10/27/2024 [facility] Comment on above: Expected: 07/28/2024, Expires: Start: 07-26-2024 End: 10-25-2024 Comprehensive metabolic 2000 panel - Serum or Plasma COMPREHENSIVE METABOLIC PANEL Lab Routine Controlled type 2 diabetes mellitus without complication, unspecified whether terminologist insulin use (HCC) Expected: 07/26/2024, Expires: 10/25/2024 [facility] Work Phone: Comment on above: Expected: 07/26/2024, Expires: Start: 07-26-2024 End: 10-25-2024 Hemoglobin A1c in Blood HEMOGLOBIN A1C Lab Routine Controlled type 2 diabetes mellitus without complication, unspecified whether mcfp insulin use (HCC) Expected: 07/26/2024, Expires: 10/25/2024 [facility] Comment on above: Expected: 07/26/2024, Expires: Start: 07-26-2024 Hepatitis B surface antibody level LDL Cholesterol [facility] Start: 07-26-2024 End: 10-25-2024 LIPID PANEL, NONFASTING LIPID PANEL, NONFASTING Lab Routine Controlled type 2 diabetes mellitus without complication, unspecified whether terminologist insulin use (HCC) Expected: 07/26/2024, Expires: 10/25/2024 [facility] Comment on above: Expected: 07/26/2024, Expires: Start: 07-26-2024 End: 10-25-2024 Microalbumin/Creatinine [Mass Ratio] in Urine ALBUMIN/CREATININE RATIO, URINE Lab Routine Controlled type 2 diabetes mellitus without complication, unspecified whether mcfp insulin use (HCC) Expected: 07/26/2024, Expires: 10/25/2024 [facility] Comment on above: Expected: 07/26/2024, Expires: Start: 07-05-2024 End: 07-05-2024 Patient encounter procedure 07/05/2024 10:15 AM EDT Office Visit [facility] [address] [place] [address] Chloe Mackenzie MD [address] [place] [address] 6 month follow up [facility] Comment on above: 6 month follow up Start: 07-04-2024 Hemoglobin A1c measurement HbA1C [facility] Start: 06-28-2024 End: 06-28-2024 Patient encounter procedure 06/28/2024 9:20 AM EST Office Visit Rehab Medicine [address] [place] [address] Meka Webb MD [address] [place], [place] [id number] f/u with provider Rehab Medicine Comment on above: f/u with provider Start: 06-24-2024 BP Controlled (<130/80) BP Controlled (<130/80) [facility] Start: 06-16-2024 BP Controlled (<130/80) BP Controlled (<130/80) [facility] Start: 05-25-2024 End: 05-25-2024 Patient encounter procedure 05/25/2024 9:45 AM EST Office Visit Endocrin[place] [address] Rosa Flores, TUNNEL KILN FIRER.LARD MIXER [address] [place] [address] 3 month f/u Endocrinology Comment on above: 3 month f/u Start: 05-12-2024 Hemoglobin A1c measurement HbA1C [facility] Start: 05-04-2024 End: 05-04-2024 Patient encounter procedure [facility] Comment on above: Return in about 6 months (around ) for repeat DFE + mac OCT . letter sent to r/s - Return in about 6 months (around 05/05/2024) for repeat DFE + mac OCT . Start: 04-27-2024 Advance Directive Discussion Advance Directive Discussion [facility] Start: 04-27-2024 Medicare Advantage Annual Wellness Visit Medicare [facility] Annual Wellness Visit [facility] Start: 04-13-2024 BP Controlled (<130/80) BP Controlled (<130/80) [facility] Start: 04-08-2024 End: 07-08-2024 PAIN PANEL, UR QUANT [facility] Work Phone: Comment on above: Expected: 04/08/2024, Expires: Start: 04-08-2024 End: 04-08-2024 Patient encounter procedure 04/08/2024 1:00 PM EST Office Visit Pain Management [address] [place] [address] Heather Davis MD [address] [address] [facility] Pain Management Comment on above: TPIs Start: 03-29-2024 End: 03-29-2024 Patient encounter procedure 03/29/2024 10:00 AM EST Office Visit Rehab Medicine [address] [place] [address] Meka Webb MD [address] [place] [address] 3 month follow up Rehab Medicine Comment on above: 3 month follow up Start: 03-25-2024 End: 03-25-2024 Specialty Pharmacy [facility] Comment on above: REFILL- Kesimpta (8th of each month) - t esting first to determine if staying on med. did not take Karis's dose. still has 1 on hand. as of 12/02 med still on hold. lv 02/07 REFILL- Kesimpta (8t h of each month) - did not take Karis's dose. still has 1 on hand. as of 02/15 med still on hold. Start: 03-11-2024 BP Controlled (<130/80) BP Controlled (<130/80) [facility] Start: 03-08-2024 End: 03-08-2024 Patient encounter procedure 03/08/2024 10:15 AM EST Office Visit [facility] [address] [place] [address] Chloe Mackenzie MD [address] [place] [address] s/p Surgical wound incision and drainage 02/19/24 [facility] Comment on above: s/p Surgical wound incision and drainage 02/19/24 Start: 03-06-2024 BP Controlled (<130/80) BP Controlled (<130/80) [facility] Start: 02-26-2024 End: 02-26-2024 Patient encounter procedure 02/26/2024 10:15 AM EDT Office Visit Dermatology [address] [place], [place] [phone] Vaishnavi Soria MD [address] [place] [address] [address] [place], [place] [id number] 3 months (around 02/19/2024) for follow up. Dermatology Comment on above: 3 months (around 02/19/2024) for follow up. Start: 02-24-2024 End: 02-24-2024 Patient encounter procedure 02/24/2024 9:15 AM EDT Office Visit Endocrinology [address] [place] [address] Rosa Flores, TUNNEL KILN FIRER.LARD MIXER [address] [place] [address] 6 mo follow up Endocrinology Comment on [...] Start: 02-18-2024 End: 02-18-2024 Patient encounter procedure [facility] Comment on above: FU-surgery consult wound check (back) p er Dr. Mackenzie, patient c/o blood tinged drainage x 3 days Start: 02-12-2024 End: 02-12-2024 Specialty Pharmacy 02/12/2024 10:00 AM EDT Specialty Pharmacy [facility] [place] [address] Pharmacist, [facility] [employer] [place] [address] REFILL- Kesimpta (8th of each month) - testing first to determine if staying on med. did not take Karis's dose. still has 1 on hand. as of 12/02 med still on hold. [facility] 02[facility] Comment on above: REFILL- Kesimpta ( of each month) - t esting first to determine if staying on med. did not take Karis's dose. still has 1 on hand. as of 12/02 med still on hold. [facility] 02/07 Start: 02-11-2024 End: 02-11-2024 Patient encounter procedure [facility] Comment on above: follow up S/p T10-T11 LAMINECT REINALDO, L3-4 LAMINECTOMY 01/20/24 REFILL- Kesimpta (8t h of each month) - testing first to determine if staying on med. did not take Karis's dose. still has 1 on hand. as of 12/02 med still on hold. [facility] 02/07 Start: 02-08-2024 End: 02-08-2024 Specialty Pharmacy 02/08/2024 10:00 AM EDT Specialty Pharmacy [facility] [place] [address] Pharmacist, [facility] [address] [place] [address] REFILL- Kesimpta ( of each month) - testing first to determine if staying on med. did not take Karis's dose. still has 1 on hand. as of 12/02 med still on hold. follow up 02/07 [facility] Comment on above: [...] of insulin (HCC) Expected: 01/26/2024, Expires: 04/26/2024 [facility] Work Phone: Comment on above: Expected: 01/26/2024, Expires: Start: 01-26-2024 End: 04-26-2024 Hemoglobin A1c in Blood HEMOGLOBIN A1C Lab Routine Type 2 diabetes mellitus with other specified complication, without long-term current use of insulin (HCC) Expected: 01/26/2024, Expires: 04/26/2024 [facility] Comment on above: Expected: 01/26/2024, Expires: 4 Start: 01-26-2024 Hemoglobin A1c measurement HbA1C [facility] Start: 01-26-2024 End: 04-26-2024 LIPID PANEL, NONFASTING LIPID PANEL, NONFASTING Lab Routine Type 2 diabetes mellitus with other specified complication, without long-term current use of insulin (HCC) Expected: 01/26/2024, Expires: 04/26/2024 [facility] Comment on above: Expected: 01/26/2024, Expires: 4 Start: 01-26-2024 End: 04-26-2024 Microalbumin/Creatinine [Mass Ratio] in Urine ALBUMIN/CREATININE RATIO, URINE Lab Routine Type 2 diabetes mellitus with other specified complication, without long-term current use of insulin (HCC) Expected: 01/26/2024, Expires: 04/26/2024 [facility] Comment on above: Expected: 01/26/2024, Expires: Start: 01-20-2024 BP Controlled (<130/80) BP Controlled (<130/80) [facility] Start: 01-20-2024 End: 01-20-2024 Admission to same day surgery center [facility] Surgery Comment on above: DECOMPRESSION LAMINECTOMY THORACIC, FACE TECTOMY AND FORAMINOTOMY, SPINAL OR LATERAL RECESS STENOSIS SINGLE LEVEL 1 Start: 01-20-2024 End: 01-20-2024 Brito facetectomy & foramotomy 1 segment lumbar MR OR Start: 01-20-2024 End: 01-20-2024 Brito facetectomy & foramotomy 1 segment thoracic MR OR Start: 01-20-2024 Subsequent hospital visit by physician [facility] Surgery Comment on above: Spinal stenosis of thoracic region [M48. 04] Start: 01-15-2024 Hepatitis B surface antibody level LDL Cholesterol [facility] Start: 01-11-2024 End: 01-11-2024 Patient encounter procedure 01/11/2024 2:00 PM EDT Office Visit [facility] [address] [place] [address] Meka Webb MD [address] [id number] MRI results/referral to neurosurgeon [facility] Comment on above: MRI results/referral to neurosurgeon Start: 01-05-2024 End: 04-05-2024 Hemoglobin A1c in Blood [facility] Work Phone: Comment on above: Expected: 01/05/2024, Expires: Start: 01-05-2024 End: 01-05-2024 Anesthesia consultation 01/05/2024 8:00 AM EDT PAT Pre Anesthesia [address] [place] [address] DECOMPRESSION LAMINECTOMY THORACIC, FACETECTOMY AND FORAMINOTOMY, SPINAL OR LATERAL RECESS STENOSIS SINGLE LEVEL 1 [[id number]] - Spine Thoracic - Bilateral Pre Anesthesia Comment on above: DECOMPRESSION LAMINECTOMY THORACIC, FACE TECTOMY AND FORAMINOTOMY, SPINAL OR LATERAL RECESS STENOSIS SINGLE LEVEL 1 [[id number]] - Spine Thoracic - Bilateral Start: 12-29-2023 End: 12-29-2023 Patient encounter procedure 12/29/2023 9:20 AM EDT Office Visit Rehab Medicine [address] [place] [address] Meka Webb MD [address] [place] [address] Follow up Rehab Medicine Comment on above: Follow up Start: 12-27-2023 Covid-19 Vaccine () Covid-19 Vaccine () [facility] Start: 12-27-2023 Covid-19 Vaccine () Covid-19 Vaccine () [facility] Start: 12-27-2023 Influenza vaccination [facility] Start: 12-25-2023 End: 12-25-2023 Patient encounter procedure 12/25/2023 10:30 AM EDT Office Visit [facility] [address] [address] Bill Woods PA-C [address] [place] [address] follow up [facility] Comment on above: follow up Start: 12-19-2023 Screening for malignant neoplasm of cervix Cervical Cancer Screening [facility] Start: 12-17-2023 End: 12-17-2023 Patient encounter procedure 12/17/2023 9:45 AM EDT Office Visit [facility] [address] [place] [address] Chloe Mackenzie MD [address] [place] [address] thoracic stenosis [facility] Comment on above: thoracic stenosis Start: 12-09-2023 End: 12-09-2023 Specialty Pharmacy 12/09/2023 10:00 AM EDT Specialty Pharmacy [facility] [address] [place] [address] [place] [address] Pharmacist, [facility]ty[facility] [address] [place] [address] [place] [address] REFILL- Kesimpta ( of each month) - med on hold for 3 months. testing first to determine if staying on med. did not take Karis's dose. still has 1 on hand. multiple attempts to follow up [facility] Comment on above: REFILL- Kesimpta ( of each month) - m ed on hold for 3 months. testing first to determine if staying on med. did not take Karis's dose. still has 1 on hand. multiple attempts to follow up Start: 12-08-2023 End: 12-08-2023 Patient encounter procedure 12/08/2023 11:20 AM EDT Office Visit Pain Management [address] [place] [address] Heather Davis MD [address] [place] [address] [facility] Comment on above: TPI Start: 12-04-2023 BP CONTROLLED (<130/80) BP CONTROLLED (<130/80) [facility] Start: 12-04-2023 End: 12-04-2023 Patient encounter procedure 12/04/2023 11:40 AM EDT Appointment Cat Scan [address] [place] [address] CT THORACIC SPINE WO IVCON Cat Scan Comment on above: CT THORACIC SPINE WO IVCON Start: 12-02-2023 End: 12-02-2023 Specialty Pharmacy 12/02/2023 10:00 AM EDT Specialty Pharmacy [facility] [address] [place] [phone] Pharmacist, [facility]ty[facility]3 [address] [place] [address] [place] [address] REFILL- Kesimpta ( of each month) - med on hold for 3 months. testing first to determine if staying on med. did not take Karis's dose. still has 1 on hand. lvm to follow up 11/23, 11/26 [facility] Comment on above: REFILL- Kesimpta (8th of each month) - m ed on hold for 3 months. testing first to determine if staying on med. did not take Karis's dose. still has 1 on hand. lvm to follow up 11/23, 11/26 Start: 11-27-2023 End: 11-27-2023 Patient encounter procedure [facility] Comment on above: Thoracic myelopathy [M47.14] REFILL- Kesimpta (8t h of each month) - med on hold for 3 months. testing first to determine if staying on med. did not take Karis's dose. still has 1 on hand. lvm to follow up 11/23 Start: 11-24-2023 End: 11-24-2023 Specialty Pharmacy 11/24/2023 10:00 AM EDT Specialty [facility]acy [facility] [address] [place] [address] [id number] [place] [address] [facility]ist, [facility] [address] [place] [address] [place] [address] REFILL- Kesimpta (8th of each month) - med on hold for 3 months. follow up 11/23. testing first to determine if staying on med. did not take Karis's dose. still has 1 on hand. [facility] Specialty Pharmacy Comment on above: REFILL- Kesimpta (8th of each month) - m ed on hold for 3 months. follow up 11/23. testing first to determine if staying on med. did not take Karis's dose. still has 1 on hand. Start: 11-19-2023 End: 11-19-2023 Patient encounter procedure 11/19/2023 4:00 PM EDT Office Visit Dermatology [address] [place], [place] [phone] Vaishnavi Soria MD [address] [place], [place] [id number] 4 weeks (around 11/11/2023) for follow up. Dermatology Comment on above: 4 weeks (around 11/11/2023) for follow up . Start: 11-10-2023 End: 02-09-2024 CD19 ABSOLUTE COUNT [facility] Work Phone: Comment on above: Expected: 11/10/2023, Expires: Start: 11-06-2023 BP CONTROLLED (<130/80) BP CONTROLLED (<130/80) [facility] Start: 11-03-2023 End: 11-03-2023 Patient encounter procedure 11/03/2023 3:30 PM EDT Office Visit [facility] [address] [place] [address] Kourtney Purdy OD [address] [place] [address] [facility] Comment on above: [facility] Start: 10-26-2023 End: 10-26-2023 Specialty Pharmacy 10/26/2023 10:00 AM EDT Specialty Pharmacy [facility] Special[facility] Pharmacy [address] [place] [address] [address] [place] [address] Pharmacist, [facility]ty[facility]3 [address] [place] [address] REFILL- Kesimpta ( of each month) [...] AM EDT Office Visit Rehab Medicine [address] [place] [address] Meka Webb MD [address] [place] [address] follow up Rehab Medicine Comment on above: follow up Start: 10-14-2023 End: 10-14-2023 Patient encounter procedure 10/14/2023 10:00 AM EDT Office Visit Dermatology [address] [place] [address] [place], [place] [phone] Vaishnavi Soria MD [address] [place] [address] [place], [place] [phone] [facility] ARE NOT RESPONDING TO ANTIBIOTIC Dermatology Comment on above: [facility] ARE NOT RESPONDING TO ANTIBIOTIC Start: 10-08-2023 End: 10-08-2023 Patient encounter procedure 10/08/2023 11:15 AM EDT Office Visit [address] [address] Bill Woods PA-C [address] [phone] follow up [facility] Comment on above: follow up Start: 09-24-2023 End: 12-24-2023 CD19 ABSOLUTE COUNT [facility] Work Phone: Comment on above: Expected: 09/24/2023, Expires: Start: 09-24-2023 End: 09-24-2023 Patient encounter procedure 09/24/2023 8:45 AM EDT Office Visit [address] [address] Bill Woods PA-C [address] [place] [address] follow up [facility] Comment on above: follow up Start: 09-16-2023 End: 09-16-2023 Patient encounter procedure 09/16/2023 11:20 AM EDT Appointment Radiology [address] [place], [place] [phone] Thoracic myelopathy [M47.14] Radiology Comment on above: Thoracic myelopathy [M47.14] Start: 09-15-2023 End: 09-15-2023 Patient encounter procedure Pain Management Comment on above: tpi follow up Start: 08-31-2023 End: 08-31-2023 Patient encounter procedure 08/31/2023 3:40 PM EDT Office Visit [facility] [address] [place] [address] Meka Webb MD [address] [place], [place] [phone] Discuss MRI results [facility] Comment on above: Discuss MRI results Start: 08-27-2023 End: 08-27-2023 Specialty Pharmacy 08/27/2023 10:00 AM EDT Specialty Pharmacy [facility] [address] [place] [address] Pharmacist, [facility]ty[facility]3 [address] [place] [address] [place] [address] REFILL- Kesimpta ( of each month) - lvm 08/23 [facility] Comment on above: REFILL- Kesimpta ( of each month) - l vm 08/23 Start: 08-24-2023 End: 08-24-2023 Specialty Pharmacy 08/24/2023 10:00 AM EDT Specialty Pharmacy [facility] [address] [place] [phone] Pharmacist, [facility]ty[facility]3 [address] [place] [address] [place] [address] REFILL- Kesimpta ( of each month) - [facility] Comment on above: REFILL- Kesimpta ( of each month) - Start: 08-07-2023 BP CONTROLLED (<130/80) BP CONTROLLED (<130/80) [facility] Start: 07-31-2023 BP CONTROLLED (<130/80) BP CONTROLLED (<130/80) [facility] Start: 07-27-2023 End: 09-26-2023 ALBUMIN/CREAT RATIO RND UR ALBUMIN/CREAT RATIO RND UR Lab Routine Controlled type 2 diabetes mellitus without complication, unspecified whether terminologist insulin use (HCC) Expected: 07/27/2023, Expires: 09/26/2023 [facility] Work Phone: Comment on above: Expected: 07/27/2023, Expires: 4 Start: 07-27-2023 End: 09-26-2023 Comprehensive metabolic 2000 panel - Serum or Plasma COMP METABOLIC PANEL Lab Routine Controlled type 2 diabetes mellitus without complication, unspecified whether terminologist insulin use (HCC) Expected: 07/27/2023, Expires: 09/26/2023 [facility] Work Phone: Comment on above: Expected: 07/27/2023, Expires: 4 Start: 07-27-2023 End: 09-26-2023 Hemoglobin A1c in Blood HGB A1C Lab Routine Controlled type 2 diabetes mellitus without complication, unspecified whether terminologist insulin use (HCC) Expected: 07/27/2023, Expires: 09/26/2023 [facility] Work Phone: Comment on above: Expected: 07/27/2023, Expires: 4 Start: 07-27-2023 End: 09-26-2023 LIPID PANEL, NONFASTING LIPID PANEL, NONFASTING Lab Routine Controlled type 2 diabetes mellitus without complication, unspecified whether terminologist insulin use (HCC) Expected: 07/27/2023, Expires: 09/26/2023 [facility] Work Phone: Comment on above: Expected: 07/27/2023, Expires: 4 Start: 07-15-2023 Hemoglobin A1c measurement HbA1C [facility] Start: 07-15-2023 Hemoglobin A1c/Hemoglobin.total in Blood HbA1C [facility] Start: 04-27-2023 Advance Directive Discussion Advance Directive Discussion [facility] Start: 02-11-2023 BP CONTROLLED (<130/80) BP CONTROLLED (<130/80) [facility] Start: 01-25-2023 End: 03-27-2023 ALBUMIN/CREAT RATIO RND UR ALBUMIN/CREAT RATIO RND UR Lab Routine Type II diabetes mellitus with manifestations (HCC) Expected: 01/25/2023, Expires: 03/27/2023 [facility] Work Phone: Comment on above: Expected: 01/25/2023, Expires: 3 Start: 01-25-2023 End: 03-27-2023 Comprehensive metabolic 2000 panel - Serum or Plasma COMP METABOLIC PANEL Lab Routine Type II diabetes mellitus with manifestations (HCC) Expected: 01/25/2023, Expires: 03/27/2023 [facility] Work Phone: Comment on above: Expected: 01/25/2023, Expires: 3 Start: 01-25-2023 End: 03-27-2023 Hemoglobin A1c in Blood HGB A1C Lab Routine Type II diabetes mellitus with manifestations (HCC) Expected: 01/25/2023, Expires: 03/27/2023 [facility] Work Phone: Comment on above: Expected: 01/25/2023, Expires: Start: 01-25-2023 End: 03-27-2023 LIPID PANEL, NONFASTING LIPID PANEL, NONFASTING Lab Routine Type II diabetes mellitus with manifestations (HCC) Expected: 01/25/2023, Expires: 03/27/2023 [facility] Work Phone: Comment on above: Expected: 01/25/2023, Expires: 3 Start: 01-19-2023 End: 03-21-2023 Ferritin [Mass/volume] in Serum or Plasma FERRITIN BLD Lab Routine Obstructive sleep apnea Insomnia, unspecified type RLS (restless legs syndrome) Hypersomnia due to medical condition Expected: 01/19/2023, Expires: 03/21/2023 [facility] Work Phone: Comment on above: Expected: 01/19/2023, Expires: Start: 01-19-2023 End: 03-21-2023 Iron and Iron binding capacity panel - Serum or Plasma IRON + TIBC Lab Routine Obstructive sleep apnea Insomnia, unspecified type RLS (restless legs syndrome) Hypersomnia due to medical condition Expected: 01/19/2023, Expires: 03/21/2023 [facility] Work Phone: Comment on above: Expected: 01/19/2023, Expires: 3 Start: 01-14-2023 End: 03-16-2023 Methylmalonate [Moles/volume] in Serum or Plasma [facility] Work Phone: Comment on above: Expected: 01/14/2023, Expires: 3 Start: 12-26-2022 Covid-19 Vaccine () Covid-19 Vaccine () [facility] Start: 12-26-2022 Influenza vaccination [facility] Start: 11-05-2022 Hemoglobin A1c/Hemoglobin.total in Blood HBA1C [facility] Start: 10-28-2022 Hepatitis B surface antibody level LDL CHOLESTEROL [facility] Start: 10-22-2022 BP CONTROLLED (<130/80) BP CONTROLLED (<130/80) [facility] Start: 07-23-2022 End: 09-22-2022 Bacteria identified in Urine by Culture URINE CULTURE Microbiology Routine Multiple sclerosis ([facility]) Urinary frequency Expected: 07/23/2022, Expires: 09/22/2022 [facility] Work Phone: Comment on above: Expected: 07/23/2022, Expires: 3 Start: 07-23-2022 End: 09-22-2022 CBC W Auto Differential panel - Blood CBC + DIFF Lab Routine Multiple sclerosis ([facility]) Urinary frequency Expected: 07/23/2022, Expires: 09/22/2022 [facility] Work Phone: Comment on above: Expected: 07/23/2022, Expires: 3 Start: 07-23-2022 End: 09-22-2022 CD19 ABSOLUTE COUNT CD19 ABSOLUTE COUNT Lab Routine Multiple sclerosis ([facility]) Urinary frequency Expected: 07/23/2022, Expires: 09/22/2022 [facility] Work Phone: Comment on above: Expected: 07/23/2022, Expires: 3 Start: 07-23-2022 End: 09-22-2022 Comprehensive metabolic 2000 panel - Serum or Plasma COMP METABOLIC PANEL Lab Routine Multiple sclerosis ([facility]) Urinary frequency Expected: 07/23/2022, Expires: 09/22/2022 [facility] Work Phone: Comment on above: Expected: 07/23/2022, Expires: 3 Start: 07-23-2022 End: 09-22-2022 IgG [Mass/volume] in Serum or Plasma IGG Lab Routine Multiple sclerosis ([facility]) Urinary frequency Expected: 07/23/2022, Expires: 09/22/2022 [facility] Work Phone: Comment on above: Expected: 07/23/2022, Expires: 3 Start: 07-23-2022 End: 09-22-2022 IgM [Mass/volume] in Serum or Plasma IGM Lab Routine Multiple sclerosis ([facility]) Urinary frequency Expected: 07/23/2022, Expires: 09/22/2022 [facility] Work Phone: Comment on above: Expected: 07/23/2022, Expires: 3 Start: 07-23-2022 End: 09-22-2022 Urinalysis complete panel - Urine URINALYSIS, WITH MICROSCOPIC Lab Routine Multiple sclerosis ([facility]) Urinary frequency Expected: 07/23/2022, Expires: 09/22/2022 [facility] Work Phone: Comment on above: Expected: 07/23/2022, Expires: 3 Start: 04-27-2022 ADVANCE DIRECTIVE DISCUSSION ADVANCE DIRECTIVE DISCUSSION [facility] Start: 04-02-2022 [facility] Work Phone: Start: 04-01-2022 Patient referral [facility] Work Phone: Start: 02-07-2022 End: 02-07-2022 [facility] Work Phone: Start: 01-22-2022 Hemoglobin A1c/Hemoglobin.total in Blood HBA1C [facility] Start: 12-29-2021 COVID-19 VACCINE (3 - Booster for Daniele series) COVID-19 VACCINE (3 - Booster for Daniele series) [facility] Start: 12-29-2021 COVID-19 VACCINE (3 - Daniele risk series) COVID-19 VACCINE (3 - Daniele risk series) [facility] Start: 12-26-2021 Influenza vaccination [facility] Start: 11-20-2021 Patient discharge [facility] Work Phone: Start: 11-19-2021 [facility] Work Phone: Start: 11-18-2021 Referral to occupational therapist [facility] Work Phone: Start: 11-18-2021 Referral to service [facility] Work Phone: Start: 11-17-2021 End: 11-18-2021 [facility] Work Phone: Start: 11-17-2021 Chart related administrative procedure [facility] Work Phone: Start: 11-17-2021 Care regimes management [facility] Work Phone: Start: 11-17-2021 Notification of physician [facility] Work Phone: Start: 11-16-2021 Following clinical pathway protocol [facility] Work Phone: Start: 11-16-2021 Assessment of risk of venous thromboembolism [facility] Work Phone: Start: 11-16-2021 Care regimes management [facility] Work Phone: Start: 11-16-2021 Inhalation therapy procedure [facility] Work Phone: Start: 11-16-2021 Insertion of catheter into peripheral vein [facility] Work Phone: Start: 11-16-2021 Measuring intake and output [facility] Work Phone: Start: 11-16-2021 Notification of physician [facility] Work Phone: Start: 11-16-2021 Patient education [facility] Work Phone: Start: 11-16-2021 Providing care according to standard [facility] Work Phone: Start: 11-16-2021 Provision of activity privileges [facility] Work Phone: Start: 11-16-2021 [facility] Work Phone: Start: 11-16-2021 Verification routine [facility] Work Phone: Start: 11-16-2021 Admission procedure [facility] Work Phone: Start: 11-16-2021 [facility] Work Phone: Start: 11-16-2021 End: 11-16-2021 Blood culture [facility] Work Phone: Start: 10-10-2021 Patient referral [facility] Work Phone: Start: 04-27-2021 ADVANCE DIRECTIVE DISCUSSION ADVANCE DIRECTIVE DISCUSSION [facility] Start: 01-08-2021 COVID-19 VACCINE (2 - Daniele risk 3-dose series) COVID-19 VACCINE (2 - Daniele risk 3-dose series) [facility] Start: 01-08-2021 COVID-19 VACCINE (2 - Daniele risk series) COVID-19 VACCINE (2 - Daniele risk series) [facility] Start: 12-13-2019 BONE DENSITY BONE DENSITY [facility] Start: 12-13-2019 Bone Density Screening Bone Density Screening [facility] Start: 12-13-2019 PNEUMOVAX AGE 65 AND OVER WITH 5YR LOOKBACK (#1) PNEUMOVAX AGE 65 AND OVER WITH 5YR LOOKBACK (#1) [facility] Start: 12-13-2019 Screening for osteoporosis Bone Density Screening [facility] Start: 06-23-2018 Hemoglobin A1c/Hemoglobin.total in Blood HBA1C [facility] Start: 02-29-2016 Colonoscopy COLONOSCOPY [facility] Start: 02-29-2016 COLORECTAL CANCER SCREENING COLORECTAL CANCER SCREENING [facility] Start: 02-29-2016 Screening for malignant neoplasm of colon [facility] Start: 2014 HEPATITIS B (1 of 3 - Risk 3-dose series) HEPATITIS B (1 of 3 - Risk 3-dose series) [facility] Start: 2014 Hepatitis B Vaccine (1 of 3 - Risk 3-dose series) Hepatitis B Vaccine (1 of 3 - Risk 3-dose series) [facility] Start: 2014 RSV Vaccine (1 - 1-dose 60+ series) RSV Vaccine (1 - 1-dose 60+ series) [facility] Start: 2014 RSV Vaccine (1 - Risk 60-74 years 1-dose series) RSV Vaccine (1 - Risk 60-74 years 1-dose series) [facility] Start: 02-25-2014 Pneumococcal Vaccine: 50+ (2 of 2 - PCV) Pneumococcal Vaccine: 50+ (2 of 2 - PCV) [facility] Start: 02-25-2014 Pneumococcal Vaccine: 65+ (2 - PCV) Pneumococcal Vaccine: 65+ (2 - PCV) [facility] Start: 02-25-2014 Pneumococcal Vaccine: 65+ (2 of 2 - PCV) Pneumococcal Vaccine: 65+ (2 of 2 - PCV) [facility] Start: 02-25-2014 PNEUMOCOCCAL: 65+ (2 - PCV) PNEUMOCOCCAL: 65+ (2 - PCV) [facility] Start: 2004 Screening for malignant neoplasm of lung Lung Cancer Screening [facility] Start: 2004 SHINGRIX VACCINE (1 of 2) SHINGRIX VACCINE (1 of 2) [facility] Start: 12-13-1999 COLOGUARD (FIT-DNA) COLOGUARD (FIT-DNA) [facility] Start: 12-13-[address] COLONOGRAPHY [facility] Start: 12-13-1999 FECAL OCCULT BLOOD FECAL OCCULT BLOOD [facility] Start: 12-13-1999 Screening for malignant neoplasm of colon [facility] Start: 12-13-1999 SIGMOIDOSCOPY SIGMOIDOSCOPY [facility] Start: 1994 Mammography [facility] Start: 1994 Screening for malignant neoplasm of breast Mammogram Screening [facility] Start: 1984 Zoledronic acid therapy Alpha-1 Antitrypsin Deficiency Screening [facility] Start: 1973 HEPATITIS A (1 of 2 - Risk 2-dose series) HEPATITIS A (1 of 2 - Risk 2-dose series) [facility] Start: 1973 Hepatitis A Vaccine (1 of 2 - Risk 2-dose series) Hepatitis A Vaccine (1 of 2 - Risk 2-dose series) [facility] Start: 1973 HEPATITIS B (1 of 3 - Risk 3-dose series) HEPATITIS B (1 of 3 - Risk 3-dose series) [facility] Start: 1973 SHINGRIX VACCINE (1 of 2) SHINGRIX VACCINE (1 of 2) [facility] Start: 1973 Urine microalbumin profile [facility] Start: 1972 ANNUAL PCP TEAM CHRONIC DISEASE VISIT ANNUAL PCP TEAM CHRONIC DISEASE VISIT [facility] Start: 1972 BP CONTROLLED (<130/80) BP CONTROLLED (<130/80) [facility] in Start: 1972 Hepatitis B surface antibody level LDL CHOLESTEROL [facility] Start: 1972 MMR (1 of 2 - Risk 2-dose series) MMR (1 of 2 - Risk 2-dose series) [facility] Start: 1972 MMR Vaccine (1 of 2 - Risk 2-dose series) MMR Vaccine (1 of 2 - Risk 2-dose series) [facility] Start: 1972 Spirometry Spirometry [facility] Start: 1964 3 comp foot exam completed DIABETIC FOOT EXAM [facility] Start: 1964 Diabetic foot examination Diabetic Foot Exam [facility] Start: 1964 Glaucoma screening Dilated Retinal Exam [facility] Start: 1964 Hepatitis B screening URINE ALBUMIN:CREATININE RATIO [facility] Start: 1964 Hepatitis C antibody, confirmatory test DILATED RETINAL EXAM [facility] Start: 1964 Meningococcal B Vaccine: Consider Based On Risk (1 of 4 - Increased Risk) Meningococcal B Vaccine: Consider Based On Risk (1 of 4 - Increased Risk) [facility] Start: 1964 MENINGOCOCCAL B: Consider based on risk (1 of 4 - Increased Risk Bexsero 2-dose series) MENINGOCOCCAL B: Consider based on risk (1 of 4 - Increased Risk Bexsero 2-dose series) [facility] Start: 1964 MENINGOCOCCAL B: Consider based on risk (1 of 4 - Increased Risk) MENINGOCOCCAL B: Consider based on risk (1 of 4 - Increased Risk) [facility] Start: 1960 PNEUMOCOCCAL: 65+ (1 - PCV) PNEUMOCOCCAL: 65+ (1 - PCV) [facility] Start: 12-13-1955 HEPATITIS A (1 of 2 - Risk 2-dose series) HEPATITIS A (1 of 2 - Risk 2-dose series) [facility] Bacteria identified in Blood by Culture Blood Culture [facility] Work Phone: Bacteria identified in Urine by Culture Urine Culture [facility] Work Phone: Blood culture [facility] Work Phone: End: 12-26-2024 CT Lumbar spine WO contrast CT LUMBAR SPINE WO IVCON Radiology Routine Spinal stenosis of lumbar region with neurogenic claudication 1 Occurrences starting 11/27/2023 until 12/26/2024 [facility] Comment on above: 1 Occurrences starting 11/27/2023 until 12/26/2024 CT Lumbar spine WO contrast CT LUMBAR SPINE WO IVCON Radiology Routine Spinal stenosis of lumbar region with neurogenic claudication 12/04/2023 11:47 AM EDT [facility] End: 12-26-2024 CT Thoracic spine WO contrast CT THORACIC SPINE WO IVCON Radiology Routine Thoracic myelopathy 1 Occurrences starting 11/27/2023 until 12/26/2024 [facility] Work Phone: Comment on above: 1 Occurrences starting 11/27/2023 until 12/26/2024 CT Thoracic spine WO contrast CT THORACIC SPINE WO IVCON Radiology Routine Thoracic myelopathy 12/04/2023 11:47 AM EDT [facility] Work Phone: Injection single/sr. director trigger point 3/> muscles TRIGGER POINT INJECTION MULTI 3+ MUSCLE GRP Procedures Routine Myofascial pain Myofascial neck pain Tight unbalanced muscles Ordered: 03/11/2023 [facility] Work Phone: Comment on above: Ordered: 03/11/2023 Injection single/sr. director trigger point 3/> muscles TRIGGER POINT INJECTION MULTI 3+ MUSCLE GRP Procedures Routine Myofascial pain Abnormal posture Abnormal increased muscle tightness Ordered: 04/03/2023 [facility] Work Phone: Comment on above: Ordered: 04/03/2023 Injection single/sr. director trigger point 3/> muscles TRIGGER POINT INJECTION MULTI 3+ MUSCLE GRP Procedures Routine Other chronic pain MS (multiple sclerosis) (HCC) Myofascial pain syndrome of lumbar spine Myofascial pain Lumbar pain Neck pain, chronic Ordered: 06/16/2023 [facility] Work Phone: Comment on above: Ordered: 06/16/2023 Injection single/sr. director trigger point 3/> muscles TRIGGER POINT INJECTION MULTI 3+ MUSCLE GRP Procedures Routine MS (multiple sclerosis) (HCC) Myofascial pain syndrome Myofascial pain syndrome of lumbar spine Myofascial pain syndrome, cervical Myofascial pain Ordered: 08/11/2023 [facility] Work Phone: Comment on above: Ordered: 08/11/2023 Injection single/sr. director trigger point 3/> muscles TRIGGER POINT INJECTION MULTI 3+ MUSCLE GRP Procedures Routine Myofascial pain Other chronic pain Myofascial pain syndrome of lumbar spine Ordered: 09/15/2023 [facility] Work Phone: Comment on above: Ordered: 09/15/2023 End: 07-23-2024 MR Brain WO contrast MRI BRAIN WO IVCON Radiology Routine Multiple sclerosis (HCC) 1 Occurrences starting 06/24/2023 until 07/23/2024 [facility] Work Phone: Comment on above: 1 Occurrences starting 06/24/2023 until 07/23/2024 End: 04-03-2025 MR Brain WO contrast MRI BRAIN WO IVCON Radiology Routine Multiple sclerosis (HCC) 1 Occurrences starting 03/04/2024 until 04/03/2025 [facility] Work Phone: Comment on above: 1 Occurrences starting 03/04/2024 until 04/03/2025 End: 04-03-2025 MR Cervical spine WO contrast MRI CERVICAL SPINE WO IVCON Radiology Routine Multiple sclerosis (HCC) 1 Occurrences starting 03/04/2024 until 04/03/2025 [facility] Comment on above: 1 Occurrences starting 03/04/2024 until 04/03/2025 End: 10-14-2024 MR Thoracic spine WO and W contrast IV MRI THORACIC SPINE WO/W IVCON Radiology KASEY Thoracic myelopathy History of multiple sclerosis (HCC) 1 Occurrences starting 09/15/2023 until 10/14/2024 [facility] Comment on above: 1 Occurrences starting 09/15/2023 until 10/14/2024 OCT MACULA CIRRUS OU (BOTH EYES) OCT MACULA CIRRUS OU (BOTH EYES) OPHT Imaging Routine Nonexudative age-related macular degeneration, bilateral, early dry stage 11/03/2023 4:56 PM EDT [facility] Work Phone: PAIN PANEL, UR QUANT PAIN PANEL, UR QUANT Lab Routine Chronic pain syndrome Other chronic pain Neck pain, chronic 04/08/2024 1:20 PM EST [facility] Patient Education [facility] Work Phone: Patient referral [facility] Work Phone: End: 01-19-2024 Polysomnogram POLYSOMNOGRAM (PSG) Procedures Routine Obstructive sleep apnea Insomnia, unspecified type RLS (restless legs syndrome) 1 Occurrences starting 01/19/2023 until 01/19/2024 [facility] Work Phone: Comment on above: 1 Occurrences starting 01/19/2023 until 01/19/2024 SPECIMEN VALIDITY, URINE SPECIMEN VALIDITY, URINE Lab Routine Chronic pain syndrome Other chronic pain Neck pain, chronic 04/08/2024 1:20 PM EST [facility] SWALLOW EVALUATION SWALLOW EVALU ATION Procedures Routine Multiple sclerosis (HCC) Dysarthria Ordered: 07/28/2024 [facility] Comment on above: Ordered: 07/28/2024 End: 02-24-2025 XR Lumbar spine AP and Lateral XR LUMBAR LIMITED 2V AP/LAT Radiology Routine S/P lumbar laminectomy 1 Occurrences starting 02/05/2024 until 02/24/2025 [facility] Work Phone: Comment on above: 1 Occurrences starting 02/05/2024 until 02/24/2025 XR Lumbar spine AP a nd Lateral XR LUMBAR LIMITED 2V AP/LAT Radiology Routine S/P lumbar laminectomy 02/11/2024 11:00 AM EDT [facility] Work Phone: XR Lumbar spine AP a nd Lateral XR LUMBAR LIMITED 2V AP/LAT Radiology Routine S/P lumbar laminectomy 03/08/2024 9:02 AM EST [facility] Work Phone: XR Lumbar spine View s W flexion and W extension XR LUMBAR MOTION 4V AP/LAT/ FLEX/EXT Radiology Routine S/P lumbar laminectomy 08/04/2024 10:06 AM EDT [facility] Work Phone: XR Lumbar spine View s W flexion and W extension XR LUMBAR MOTION 4V AP/LAT/ FLEX/EXT Radiology Routine Low back pain, unspecified back pain laterality, unspecified chronicity, unspecified whether sciatica present 10/25/2024 9:01 AM EDT [facility] Work Phone: End: 10-14-2024 XR Thoracic spine AP and Lateral and Swimmers XR THORACIC GENERAL 3V AP/LAT/SWIMMERS Radiology Routine Thoracic myelopathy History of multiple sclerosis (HCC) 1 Occurrences starting 09/15/2023 until 10/14/2024 [facility] Work Phone: Comment on above: 1 Occurrences starting 09/15/2023 until 10/14/2024 XR Thoracic spine AP and Lateral and Swimmers XR THORACIC GENERAL 3V AP/LAT/SWIMMERS Radiology Routine Thoracic myelopathy History of multiple sclerosis (HCC) 09/16/2023 11:27 AM EDT [facility] Work Phone: [facility] Immunizations Immunization Date Immunization Notes Care Provider Sukumar momin 04-01-2022 influenza, seasonal, injectable Dr. Tom Sherman Work Phone: [facility] Work Phone: 04-01-2022 influenza virus vaccine, unspecified formulation Bill Woods PA-C Work Phone: [facility] 11-03-2021 COVID-19 vaccine, ag e 12+ yr ([employer] - PURPLE TOP) Lisa Taylor [facility] 08-16-2021 influenza, injectable,quadrivalent , preservative free, pediatric Dr. Tom Sherman Work Phone: [facility] Work Phone: 12-11-2020 Covid ([employer] M[employer]) Dr. Tom Sherman Work Phone: [facility] Work Phone: 11-25-[address] Tom Sherman Work Phone: [facility] Work Phone: 11-25-2020 influenza, seasonal, injectable Lisa Taylor [facility] 12-21-2019 influenza, injectabl e, quadrivalent, contains preservative Lisa Taylor [facility] 12-20-[address] Tom Sherman Work Phone: [facility] Work Phone: 12-20-2019 influenza, seasonal, injectable Lisa Taylor [facility] 04-05-2019 influenza, injectabl e, quadrivalent, contains preservative Lisa Taylor [facility] 01-21-2018 influenza, injectabl e, quadrivalent, preservative free Lisa Taylor [facility] 01-02-2017 influenza, injectabl e, quadrivalent, contains preservative Lisa Taylor [facility] 12-15-[address] Tom Sherman Work Phone: [facility] Work Phone: 12-15-2016 influenza, seasonal, injectable Lisa Taylor [facility] 12-20-[address] Tom Sherman Work Phone: [facility] Work Phone: 12-20-2015 influenza, seasonal, injectable Lisa Taylor [facility] 12-10-2015 influenza, seasonal, injectable Lisa Taylor [facility] 12-26-[address] Tom Sherman Work Phone: [facility] Work Phone: 12-26-2014 influenza, seasonal, injectable Lisa Taylor [facility] 02-25-2013 pneumococcal polysaccharide vaccine, 23 valent Lisa Taylor [facility] 02-25-[address] Aly Sherman Work Phone: [facility] Work Phone: 02-25-2013 pneumococcal vaccine , unspecified formulation Dr. Tom Sherman Work Phone: [facility] Work Phone: NEGATED: Highlighted row has not occurred!01-21-2024 influenza, high dose seasonal, preservative-free Chloe Mackenzie MD Work Phone: [facility] Comment on above: Deferred: Patient Re fused NEGATED: Highlighted row has not occurred!01-21-2024 pneumococcal conjugate (PCV20) vaccine, 20 valent (PREVNAR 20) Chloe Mackenzie MD Work Phone: [facility] Comment on above: Deferred: Patient Re fused Payers Date Payer Category Payer Self-pay [id number] 2020 Medicaid UHC MEDICAID [facility] MEDICAID [id number] 2020-Present [phone] [address] [place] [address] Medicaid [id number] 2020 Medicaid [id number] 2020 Unknown [id number] 2018 Medicare [id number]. [id number] 2018 Medicare (Managed Care) [facility] DUAL COMPLETE HMO POS SNP [id number] 2018 Private Health Insurance [id number] 2017 Medicare [id number] 2016 Medicaid [id number] 2007 Medicare [id number] 1954 Unknown [id number] .840.1.313334.3.579.2. 693 1954 Unknown [id number] .840.1.041671.3.579.2. 651 Medicare [id number] .[id number] Medicare [id number] Unknown [id number] 2.16.840.1.728289.3.579.2. 283 Unknown [id number] Unknown [id number] 2.16.840.1.344457.3.579.2. 462 Unknown [id number] 2.16.840.1.048949.3.579.2. 462 Unknown [id number] 2.16840.1.779300.3.579.2. 462 Unknown [id number] 2.840.1.301970.3.579.2. 462 Unknown [id number] 2.840.1.875047.3.579.2. 462 Unknown [id number] 2.840.1.789242.3.579.2. 462 Unknown [id number] 2.840.1.921086.3.579.2. 462 Unknown [id number] 2.840.1.194988.3.579.2. 462 Unknown [id number] 2.840.1.382765.3.579.2. 462 Unknown [id number] 2..840.1.950084.3.579.2. 462 Unknown [id number] 2.840.1.553058.3.579.2. 462 Unknown [id number] .840.1.509590.3.579.2. 462 Unknown [id number] .840.1.381608.3.579.2. 462 Unknown [id number] 2.16840.1.873372.3.579.2. 462 Unknown [id number] 2.16.840.1.878416.3.579.2. 462 Unknown [id number] 2.16.840.1.709787.3.579.2. 462 Unknown [id number] 2.840.1.465795.3.579.2. 462 Unknown [id number] 2.16.840.1.221037.3.579.2. 462 Unknown [id number] 2.16.840.1.720043.3.579.2. 462 Unknown [id number] 2.16.840.1.699411.3.579.2. 462 Unknown [id number] 2.16.840.1.632650.3.579.2. 462 Unknown [id number] 2.16.840.1.331030.3.579.2. 462 Unknown [id number] 2.16.840.1.688656.3.579.2. 462 Unknown [id number] 2.16.840.1.115705.3.579.2. 462 Unknown [id number] 2.16.840.1.346488.3.579.2. 462 Unknown [id number] 2.840.1.351675.3.579.2. 462 Unknown [id number] 2.16840.1.733141.3.579.2. 462 Unknown [id number] 2.840.1.001743.3.579.2. 462 Unknown [id number] 2.16.840.1.667958.3.579.2. 462 Unknown [id number] 2.16.840.1.753482.3.579.2. 462 Unknown [id number] 2.16840.1.733130.3.579.2. 462 Unknown [id number] 2.16840.1.824198.3.579.2. 462 Unknown [id number] 2.16840.1.819633.3.579.2. 462 Unknown [id number] 2.16840.1.019151.3.579.2. 462 Unknown [id number] 2.16840.1.028809.3.579.2. 462 Social History Date Type Detail Facility Start: 07-27-2017 End: 04-02-2022 Tobacco smoking status NHIS Unknown if ever smoked [facility] Start: 1955 Sex Assigned At Not on file [facility] Start: 06-15-2021 Heavy tobacco smoker (finding) [facility] Start: 1955 Sex Assigned At Female [facility] Start: 08-28-2020 Rare [facility] Work Phone: Start: 08-14-2020 None [facility] Work Phone: Start: 08-28-2020 Homeless [facility] Work Phone: Start: 08-30-2020 Cigarettes [facility] Work Phone: Start: 01-04-1973 End: 02-18-2024 Tobacco smoking status NHIS Smokes tobacco daily [facility] Start: 01-04-1973 End: 12-27-2023 History of tobacco use Cigarette Smoker [facility] Start: 10-15-2017 End: 09-03-2022 Cigarettes smoked current (pack per day) - Reported 0.5 [facility] Start: 10-15-2017 End: 02-18-2024 Tobacco use and exposure Smokeless tobacco non-user [facility] Start: 03-28-2020 End: 12-10-2022 Alcohol intake Current non-drinker of alcohol (finding) [facility] Start: 10-15-2017 End: 02-11-2022 Tobacco Comment Less than 10 [facility] Start: 09-01-2021 End: 02-11-2022 Exposure to SARS-CoV-2 (event) Not sure [facility] Start: 10-22-2021 History SDOH Financial 4 [facility] Start: 10-22-2021 History SDOH Food Worry 1 [facility] Start: 10-22-2021 History SDOH Transport Med 2 [facility] Start: 09-03-2022 End: 11-05-2022 Tobacco use panel [facility] How hard is it for y ou to pay for the very basics like food, housing, medical care, and heating Not very hard [facility] (I/We) worried [place] (my/our) food would run out before (I/we) got money to buy more. Never true [facility] In the past 12 month s, has lack of transportation kept you from medical appointments or from getting medications? No [facility] In the past 12 month s, was there a time when you were not able to pay the mortgage or rent on time? No [facility] Start: 01-06-2023 Gender identity Identifies as female gender (finding) [facility] Start: 01-04-2024 Tobacco smoking status NHIS Ex-smoker [facility] Start: 01-04-1973 End: 12-27-2023 History of tobacco use Current smoker [facility] Start: 01-05-2024 End: 10-25-2024 Alcoholic beverage intake Current drinker of alcohol (finding) [facility] Start: 01-04-2024 Alcohol Comment 1-2 times per year flavored beer [facility] Medical Equipment Procedure Code Equipment Code [...] Test Strp) strip Start: 08-10-2020 End: 11-20-2021 [id number], [id number] Start: 08-14-2022 Comment on above: Uses 4 per day with insulin injection. Goals Date Patient Goal Desired Activity /State Functional Status Date Assessment Result Facility 02-22-2024 Are you deaf, or do you have serious difficulty hearing No 02/22/2024 3:24 PM EDT Mohit Hamlin, RN No [facility] 02-22-2024 Are you blind, or do you have serious difficulty seeing, even when wearing glasses No 02/22/2024 3:24 PM EDT Mohit Hamlin, RN No [facility] 02-22-2024 Do you have serious difficulty walking or climbing stairs No 02/22/2024 3:24 PM EDT Mohit Hamlin, RN No [facility] 02-22-2024 Do you have difficul ty dressing or bathing No 02/22/2024 3:24 PM EDT Mohit Hamlin, RN No [facility] 02-22-2024 Because of a physica l, mental, or emotional condition, do you have difficulty doing errands alone such as visiting a physician's office or shopping No 02/22/2024 3:24 PM EDT Mohit Hamlin, RN No [facility] 11-20-2021 Functional status Ambulates;Beds brittani [employer] [facility] Work Phone: 05-08-2021 Functional status Ambulates;Bath room Privilege [facility] Work Phone: Mental Status Date Assessment Result Facility 02-22-2024 Because of a physica l, mental, or emotional condition, do you have serious difficulty concentrating, remembering, or making decisions No 02/22/2024 3:24 PM EDT Mohit Hamlin, RN No [facility] 04-02-2022 Cognitive function Awake;Alert;A ppropriate;Fol lows Commands [facility] Work Phone: 02-07-2022 Cognitive function Level Of Cons ciousness Awake;Alert;Appropriate;Fol lows Commands [facility] Work Phone: 11-20-2021 Cognitive function Voice/Name [facility] Work Phone: 11-20-2021 Cognitive function Appropriate;Cooperativ e [facility] Work Phone: 11-16-2021 Cognitive function Voice/Name [facility] Work Phone: 10-07-2021 Cognitive function Level Of Cons ciousness Awake;Alert;Appropriate;Fol lows Commands [facility] Work Phone: 08-21-2021 Cognitive function Awake;Alert;Appropriat e [facility] Work Phone: 06-22-2021 Cognitive function Voice/Name [facility] Work Phone: 05-16-2021 Cognitive function Awake;Alert;A ppropriate;Fol lows Commands [facility] Work Phone: 05-11-2021 Cognitive function Awake;Alert;A ppropriate;Fol lows Commands [facility] Work Phone: 05-08-2021 Cognitive function Voice/Name [facility] Work Phone: 04-24-2021 Cognitive function Awake;Alert;A ppropriate;Fol lows Commands [facility] Work Phone: 04-19-2021 Cognitive function Awake;Alert;A ppropriate;Fol lows Commands [facility] Work Phone: Clinical Notes 02-28-2015 to 11-16-2024 Bill Woods PA-C - 11/16/2024 2:30 PM EDTTelephone Encounter - Heather Davis MD - 11/15/2024 9:02 AM EDTTelephone Encounter - Heather Davis MD - 11/15/2024 9:02 AM EDTPatient Instructions Note Date & Type Note Facility 11-16-2024 History of Present illness Narrative Images from the original note were not included. [facility] FOLLOWUP/ESTABLISHED PATIENT VIRTUAL VISIT PRINCIPAL NEUROLOGIC DIAGNOSIS: Multiple sclerosis DISEASE SUMMARY Date of onset: 12/1998 Date of diagnosis of MS: 1998 Disease course at onset: Progressive with relapses Current disease course: Progressive with relapses Previous disease therapies: Glatiramer acetate 2002, [id number], [id number] Fingolimod 07/2014-04/2016 (switched because of heart issues [...] visit. Either the patient or their legal client services representative has been informed of the risks [...] 100 mg qhs Has only gone to [facility] 3 times due to back pain Sister coming up on Nov 30 (family reunion)- excited about this OT and PT and speech services coming to house - helpful REVIEW OF SYSTEMS: Mood: PHQ9 responses reviewed and appear below Pain:reviewed on nursing intake documentation Fatigue: mildly increased - benefit from [employer] Neuro-QoL Functions (higher=better functioning) Flowsheet Row [facility] from 10/12/2024 in [facility] from 07/28/2024 in [facility] from 12/24/2023 in [facility] Upper Extremity Domain T Score 36 38 [...] Row [facility] from 10/12/2024 in [facility] from 07/28/2024 in [facility] from 12/24/2023 in [facility] Sleep Domain T Score 69 70 68 Fatigue Domain T Score 58 66 58 Anxiety Domain T Score 56 57 56 Depression Domain T Score 55 59 54 Stigma Domain T Score 63 61 63 Emotional Behavior Dyscontrol T Score -- -- -- PAST HISTORY was reviewed and updated: PAST MEDICAL HISTORY Diagnosis Date Anxiety and depression Atrial fibrillation ([facility]) Dr. Butler following- pt states blood clot in heart Cardiomyopathy ([facility]) Cervical myelopathy (HCC) CHF (congestive heart failure) ([facility]) Cognitive impairment on aricept Colitis COPD (chronic obstructive pulmonary disease) ([facility]) Diabetes ([facility]) Dr. Flores following Dyslipidemia Full dentures GERD (gastroesophageal reflux disease) GI bleed 2020 History of loop recorder pt reports battery is [place] (hard of hearing) Hypertension controlled with meds IBS (irritable bowel syndrome) Multiple sclerosis ([facility]) Dr. Woods Myocardial infarct, old 03/2016 Obesity Pain management Pancreatitis ([facility]) 1977 Renal insufficiency Dr. Greenfield RLS (restless legs syndrome) Sleep apnea no cpap since loosing 100lbs Tobacco dependence quit 12/26 Urinary incontinence Wears glasses PAST SURGICAL HISTORY Procedure Laterality Date BACK SURGERY HX lower x3 CARPAL TUNNEL lt and rt COLONOSCOPY FLX DX W/COLLJ SPEC WHEN PFRMD 10/12/2014 Colonoscopy inpt [facility] COLONOSCOPY FLX DX W/COLLJ SPEC WHEN [...] which included preparing to see the patient, [id number] patient care, completing clinical documentation, obtaining and/or reviewing separately obtained history, counseling and educating the patient/family/caregiver, ordering medications, tests, or procedures, and communicating results to the patient/family/caregiver. Bill Woods PA-C documented in this encounter [facility] 11-16-2024 Note [facility] 11-15-2024 Telephone encounter Note Patient called. Had received #18 Percocet back in July. Hurting and procedure is not scheduled until November. No SE reported. Patient would like prn Percocet - has used the 18 tablets. Script sent. Must last at least 90 days with prn use. Not for scheduled use. bhm [facility] 11-15-2024 Miscellaneous Notes Patient called. Had received #18 Percocet back in July. Hurting and procedure is not scheduled until November. No SE reported. Patient would like prn Percocet - has used the 18 tablets. Script sent. Must last at least 90 days with prn use. Not for scheduled use. bhm documented in this encounter [facility] 11-03-2024 Telephone encounter Note Images from the original note were not included. Pt asked for Zanaflex refill. This nurse updated Rosa Flores, LARD MIXER does not fill for this. Updated pt to contact pharmacy and provider who ordered this in the past for refills/new prescription as needed. Pt asking to increase dose of Mounjaro from 12.5 mg to 15 mg once weekly. Most recent Endocrinology visit: Last encounter Visit on 09/21/2024 (with Rosa Cassandra Cioce) 11/05/2022 in [facility] with CIOCE, ROSA C for Type 2 diabetes mellitus with other specified complication, without long-term current use of insulin (HCC) 02/11/2023 in [facility] with CIOCE, ROSA C for Controlled type 2 diabetes mellitus without complication, unspecified whether terminologist insulin use (HCC) 08[facility] CIOCE, ROSA C for Type 2 diabetes mellitus with other specified complication, without long-term current use of insulin (HCC) 02/[facility]/2024 [facility] with CIOCE, ROSA C for Controlled type 2 diabetes mellitus without complication, unspecified whether terminologist insulin use (HCC) 05/26/2024 in [facility] with CIOCE, ROSA C for Controlled type 2 diabetes mellitus without complication, unspecified whether terminologist insulin use (HCC) 09/21/2024 in [facility] [place] with CIOCE, ROSA C for Controlled type 2 diabetes mellitus without complication, unspecified whether mcfp insulin use (HCC) Upcoming Endocrinology Appointments - Next 365 Days Visit Type Date Time Department EST RICHARD PATIENT 03/29/2025 9:15 AM [facility] [place] Requested Prescriptions No prescriptions requested or ordered [...] in the last 12 months Please advise. [facility] 11-03-2024 Miscellaneous Notes Images from the [...] on 09/21/2024 (with Rosa Flores) 11/05/2022 in [facility] with ROSA FLORES for Type 2 diabetes mellitus with other specified complication, without long-term current use of insulin (HCC) 02/11/2023 in [facility] with CIOCE, ROSA C for Controlled type 2 diabetes mellitus without complication, unspecified whether mcfp insulin use (HCC) 08/19/2023 [facility] with EDUAREGAVIROSA C for Type 2 diabetes mellitus with other specified complication, without long-term current use of insulin (HCC) 02/[facility]/2024 [facility] with CIOCE ROSA C for Controlled type 2 diabetes mellitus without complication, unspecified whether mcfp insulin use (HCC) 05/26/2024 in [facility] with CIOCE ROSA C for Controlled type 2 diabetes mellitus without complication, unspecified whether mcfp insulin use (HCC) 09/21/2024 in [facility] [place] with CIKIPE ROSA C for Controlled type 2 diabetes mellitus without complication, unspecified whether mcfp insulin use (HCC) Upcoming Endocrinology Appointments - Next 365 Days Visit Type Date Time Department EST RICHARD PATIENT 03/29/2025 9:15 AM [facility] Prescriptions No prescriptions requested or [...] months Please advise. documented in this encounter [facility] 10-27-2024 Telephone encounter Note The following approved medication requests have been transmitted electronically. Requested Prescriptions Signed Prescriptions Disp Refills donepezil (ARICEPT) 10 mg tablet 180 tablet 11 Sig: Take 2 tablets by mouth once daily. Authorizing Provider: BILL WOODS PA-C [facility] 10-27-2024 Miscellaneous Notes The following approved [...] : Elizabeth Pearce documented in this encounter [facility] 10-26-2024 Telephone encounter Note Source : mychart from patient requesting refill. Delivery : e-script Requested Prescriptions Pending Prescriptions Disp Refills donepezil (ARICEPT) 10 mg tablet [Pharmacy Med Name: donepezil 10 mg tablet] 180 tablet 11 Sig: Take 2 tablets by mouth once daily. DX : Patient last seen 10/12/24 Next Appointment : Elizabeth Pearce [facility] 10-25-2024 Note [facility] 10-25-2024 History of Present illness Narrative Images from the original note were not included. [facility] Established Patient Consultation No referring provider [...] in 2015. Denies upper extremity symptoms. On , prior hx of [place]. Smokes half a pack a day of [...] is currently under the care of a body painter at the main campus but expresses dissatisfaction with the care provided. She continues to smoke and is working on reducing her tobacco use. Past Medical History: PAST MEDICAL HISTORY Diagnosis Date Anxiety and depression Atrial fibrillation ([facility]) Dr. Butler following- pt states blood clot in heart Cardiomyopathy ([facility]) Cervical myelopathy ([facility]) CHF (congestive heart failure) ([facility]) Cognitive impairment on aricept Colitis COPD (chronic obstructive pulmonary disease) ([facility]) Diabetes ([facility]) Dr. Flores following Dyslipidemia Full dentures GERD (gastroesophageal reflux disease) GI bleed 2020 History of loop recorder pt reports battery is [place] (hard of hearing) Hypertension controlled with meds IBS (irritable bowel syndrome) Multiple sclerosis ([facility]) Dr. Woods Myocardial infarct, old 03/2016 Obesity Pain management Pancreatitis ([facility]) [address] Greenfield RLS (restless legs syndrome) Sleep apnea no cpap since loosing 100lbs Tobacco dependence quit 12/26 Urinary incontinence Wears glasses Past Surgical History: PAST SURGICAL HISTORY Procedure Laterality Date BACK SURGERY HX lower x3 CARPAL TUNNEL lt and rt COLONOSCOPY FLX DX W/COLLJ SPEC WHEN PFRMD 10/12/2014 Colonoscopy inpt [facility] COLONOSCOPY FLX DX W/COLLJ SPEC WHEN [...] by mouth twice daily with meals. Insulin [place], Disposable, (BD ULTRAFINE III MINI PEN) 31 [...] to surgery 01/16/24 for surgery 01/20/24 from [address] spotter per DR MACKENZIE albuterol HFA (PROVENTIL HFA, [...] DOSE -7 DAYS PRIOR TO SURGERY PER PILOT BOAT CAPTAIN FOR SURGERY 01/20/24 isosorbide mononitrate ER (IMDUR) [...] Lymph 1.00 - 4.00 k/uL 1.50 Abs [place] <0.87 k/uL 0.55 Abs Eosin <0.46 k/uL [...] review of medical records: I reviewed the [facility] chart. Personal review of image, tracing or [...] No Change Instructions: Continue present activity Physician [id number] time was 10 minutes with > 50% [...] 4 - Moderate Chloe Mackenzie MD Neurosurgery [facility] October 25, 2024 12:15 PM 68 y/o female presents to office with concerns of a new lump on her back that started about 1 week ago. Pain is constant 5/10. Hx of lumbar laminectomy documented in this encounter [facility] 10-25-2024 Note [facility] 10-25-2024 History of Present illness Narrative Radiology [...] PATIENT PRESENTS WITH AN IMPLANTABLE OR ATTACHED UNDERCOAT SPRAYER: No RADIOLOGY DEPARTMENT: General X-ray: Exam(s) Completed: Spine X-Ray(s): Lumbar AP/LAT/ FLEX/EXT PERIPHERAL IV DATA: Not applicable SIGNED BY: RT Roberth(R) October 25, 2024 9:01 AM documented in this encounter [facility] 10-25-2024 Note [facility] nt 10-12-2024 Instructions Vaishnavi Soria MD - 10/12/2024 [...] you have problems or questions, please call [facility] [place] [phone] documented in this encounter [facility] 10-12-2024 Note [facility] 10-12-2024 History of Present illness Narrative [...] note was completed by Jessi Dick LPN/ Eol German LPN acting as scribe for Vaishnavi Soria MD. October 12, 2024 1:20 PM. The HPI, PMH, EXAM, Findings/plan that were documented by my nutritional assistant, who was scribing during the encounter, were confirmed by me and I agree with the content of these sections. I have made any required additions or deletions to the HPI/PFSH/exam/findings/plan as needed. The physical exam and any procedures were performed by me, unless otherwise noted. Vaishnavi Soria MD documented in this encounter [facility] 10-12-2024 Instructions Bill Woods PA-C - 10/12/2024 9:58 AM EDT Dry Mouth Suggestions: Chew sugar-free gum or suck on sugar-free hard candies (helps stimulate the flow of saliva) Limit caffeine intake Don't use mouthwashes that contain alcohol Stop all tobacco use Sip water regularly Try rxce-rfl-ivkijls saliva substitutes -- look for products containing xylitol, such as Mouth Kote or [place] Moisturizing Mouth [place], or hydroxyethyl cellulose, such as Biotene Oral Balance Try a mouthwash designed for dry mouth -- especially one that contains xylitol, such as Biotene Dry Mouth Oral Rinse or ACT Total Care Dry Mouth Rinse Avoid using fdmd-qry-pzwrimc antihistamines and decongestants because they can make your symptoms worse. Breathe through your nose, not your mouth Add moisture to the air at night with a room humidifier documented in this encounter [facility] 10-12-2024 History of Present illness Narrative Images from the original note were not included. [facility] MULTIPLE SCLEROSIS FOLLOWUP/ESTABLISHED PATIENT VIRTUAL VISIT PRINCIPAL NEUROLOGIC DIAGNOSIS: Multiple sclerosis DISEASE SUMMARY Date of onset: 12/1998 Date of diagnosis of MS: 1998 Disease course at onset: Progressive with relapses Current disease course: Progressive with relapses Previous disease therapies: Glatiramer acetate 2002, 9734-3160, 5824-7657 Fingolimod 07/2014-04/2016 (switched because of heart issues [...] visit. Either the patient or their legal client services representative has been informed of the risks [...] better Had a mild headache recently - dull Went to eye doctor on 10/10 Thinks [...] once per week Nurse once per week FIELD CHECKER 8 hours per day REVIEW OF SYSTEMS: Mood: PHQ9 responses reviewed and appear below Bladder: see HPI Pain:reviewed on nursing intake documentation Fatigue: worse Neuro-QoL Functions (higher=better functioning) Flowsheet Row [facility] from 10/12/2024 in [facility] 07/28/2024 in [facility] from 12/24/2023 in [facility] Upper Extremity Domain T Score 36 38 [...] Row [facility] from 10/12/2024 in [facility]rology [facility] from 07/28/2024 in [facility] from 12/24/2023 in [facility] Sleep Domain T Score 69 70 68 [...] Cervical myelopathy (HCC) CHF (congestive heart failure) ([facility]) Cognitive impairment on aricept Colitis COPD (chronic obstructive pulmonary disease) ([facility]) Diabetes ([facility]) Dr. Flores following Dyslipidemia Full dentures GERD (gastroesophageal reflux disease) GI bleed 2020 History of loop recorder pt reports battery is [place] (hard of hearing) Hypertension controlled with meds IBS (irritable bowel syndrome) Multiple sclerosis ([facility]) Dr. Woods Myocardial infarct, old 03/2016 Obesity Pain management Pancreatitis ([facility]) [address] Greenfield RLS (restless legs syndrome) Sleep apnea no cpap since loosing 100lbs Tobacco dependence quit 12/26 Urinary incontinence Wears glasses PAST SURGICAL HISTORY Procedure Laterality Date BACK SURGERY HX lower x3 CARPAL TUNNEL lt and rt COLONOSCOPY FLX DX W/COLLJ SPEC WHEN PFRMD 10/12/2014 Colonoscopy inpt [facility] COLONOSCOPY FLX DX W/COLLJ SPEC WHEN [...] which included preparing to see the patient, ezhe-ct-koxy patient care, completing clinical documentation, obtaining and/or reviewing separately obtained history, performing a medically appropriate examination, counseling and educating the patient/family/caregiver, ordering medications, tests, or procedures, and communicating results to the patient/family/caregiver. Bill Woods PA-C documented in this encounter [facility] 10-12-2024 Note [facility] 10-10-2024 Note Date of Procedure 10/10/2024. Agriculturist Information Special Delivery Carrier: BP. Start time: 3:40 PM. Stop time: 3:47 PM. Quality Right Eye Borderline. Left Eye Borderline. NFL Interpretation Right Eye Diffuse loss. Left Eye Diffuse loss. Ganglion Cell Layer Thickness Right Eye Diffuse loss. Left Eye Diffuse loss. Interval Change Right Eye Stable. Left Eye Stable. [facility] 10-10-2024 Note [facility] 10-10-2024 History of Present illness Narrative [...] treatment regimen with primary care doctor and/or toilet products molder to maintain optimum levels as they are important to avoid ocular complications Encouraged patient to call the office immediately with any changes to vision or visual concerns Follow-up in 7 months for complete with OCT mac/nerve and 30-2 Keith Squires, OD October 10, 2024 4:03 PM documented in this encounter [facility] 10-10-2024 Note Date of Procedure 10/10/2024. Agriculturist Information Special Delivery Carrier: BP. Start time: 3:40 PM. Stop time: 3:42 PM. OCT Macula Interpretation Right Eye Normal without fluid. Left Eye Normal without fluid. Interval Change Right Eye Stable. Left Eye Stable. [facility] 10-06-[address] Webb e-prescribed Ms. Gray's refill for lidocaine patches to the pharmacy on 10/05/24. [facility] 10-06-[address] Webb e-prescribed Ms. Gray's refill for lidocaine patches to the pharmacy on 10/05/24. Ms. Gray's refill request will be sent to Dr. Webb in a separate refill encounter. documented in this encounter [facility] 10-05-2024 Telephone encounter Note Refilled. If prefers 90 day supply, let me know and can change [facility] 10-05-2024 Miscellaneous Notes Refilled. If prefers [...] advise. Leandra Maguire documented in this encounter [facility] 10-04-2024 Telephone encounter Note Patient last seen on 08/05/24 Last refill on 07/12/24 Patient phones requesting refills as follows: Requested Prescriptions Pending Prescriptions Disp Refills lidocaine (LIDODERM) 5 % 60 patch 2 Sig: Apply 1-2 patches as directed once daily. TO AFFECTED AREA. REMOVE AFTER 12 HOURS. Please review and advise. Leandra Maguire [facility] 10-04-2024 Telephone encounter Note Ms. Gray's refill request will be sent to Dr. Webb in a separate refill encounter. [facility] 09-21-2024 Note [facility] 09-21-2024 History of Present illness Narrative DIABETES CARE AND EDUCATION VISIT Location: [place] Type of visit: In person individual PATIENT'S [...] TIME: 8:15 AM documented in this encounter [facility] 09-21-2024 Instructions Rosa Flores APRN.CNP - [...] does not improve. documented in this encounter [facility] 09-21-2024 Note HNO ID: [id number] Author: AMY CAMPBELL MA Service: ? Author Type: Hvac Engineer Type: Progress Notes Filed: 09/21/2024 08:31 Note Text: [facility] 09-21-2024 History of Present illness Narrative [...] Cervical myelopathy (HCC) CHF (congestive heart failure) ([facility]) Cognitive impairment on aricept Colitis COPD (chronic obstructive pulmonary disease) (HCC) Diabetes ([facility]) Dr. Flores following Dyslipidemia Full dentures GERD (gastroesophageal reflux disease) GI bleed 2020 History of loop recorder pt reports battery is [place] (hard of hearing) Hypertension controlled with meds IBS (irritable bowel syndrome) Multiple sclerosis ([facility]) Dr. Woods Myocardial infarct, old 03/2016 Obesity Pain management Pancreatitis ([facility]) [address] Greenfield RLS (restless legs syndrome) Sleep apnea no cpap since loosing 100lbs Tobacco dependence quit 12/26 Urinary incontinence Wears glasses PAST SURGICAL HISTORY Procedure Laterality Date BACK SURGERY HX lower x3 CARPAL TUNNEL lt and rt COLONOSCOPY FLX DX W/COLLJ SPEC WHEN PFRMD 10/12/2014 Colonoscopy inpt [facility] COLONOSCOPY FLX DX W/COLLJ SPEC WHEN [...] 50 over 150) ~20 units daily Insulin [place], Disposable, (BD ULTRAFINE III MINI PEN) 31 [...] to surgery 01/16/24 for surgery 01/20/24 from potato spotter per DR MACKENZIE albuterol HFA (PROVENTIL HFA, [...] DOSE -7 DAYS PRIOR TO SURGERY PER PILOT BOAT CAPTAIN FOR SURGERY 01/20/24 No current facility-administered medications [...] 2 diabetes mellitus without complication, unspecified whether terminologist insulin use (HCC) (primary encounter diagnosis) Comment: [...] Rosa Flores CNP documented in this encounter [facility] 09-21-2024 Note [facility] 09-08-2024 Telephone encounter Note Patient called [...] her that this information would be documented. [facility] Work Phone: 09-08-2024 Miscellaneous Notes Patient [...] would be documented. documented in this encounter [facility] 09-01-2024 Note HNO ID: [id number] Author: TAHIR BLANCHARD RN Service: ? Author Type: Registered Nurse Type: Nursing Progress Note Filed: 09/01/2024 15:50 Note Text: Continue to wait on Dr Davis. [facility] 09-01-2024 Nurse Note Continue to wait on Dr Davis. [facility] 09-01-2024 Nurse Note Continue to wait on Dr Davis. Waiting on Dr Davis to see patient. documented in this encounter [facility] 09-01-2024 Note HNO ID: [id number] Author: TAHIR BLANCHARD RN Service: ? Author Type: Registered Nurse Type: Nursing Progress Note Filed: 09/01/2024 15:30 Note Text: Waiting on Dr Davis to see patient. [facility] 09-01-2024 Nurse Note [address] on Dr Davis to see patient. [facility] 08-29-2024 Telephone encounter Note Discussed with Dr. Davis. She will notify patient if she is able to have procedure. Tahir Alvarenga RN [facility] 08-29-2024 Miscellaneous Notes Discussed with Dr. [...] Tahir Alvarenga RN documented in this encounter [facility] 08-29-2024 Telephone encounter Note Patient called stating that dermatology has placed her on a 10 day course of bactrim for skin infection. Patient would like to know if she can still have her procedure. Patient would also like to know if she needs to hold her monjaro for the procedure. Tahir Alvarenga RN [facility] 08-29-2024 Telephone encounter Note Summary: Medication Hold Called and left message to remind them to hold their Eliquis prior to their procedure at the [facility] Pain Management Department if approved by the prescribing physician. The last dose should have been taken on 08/28/2024 for their procedure on 09/01/2024. Instructed patient to call the number listed below if the Eliquis was not stopped on the date indicated. Instructed patient to please call [phone] Option #3 to speak with the Nurse with any questions. [facility] 08-29-2024 Miscellaneous Notes Summary: Medication Hold Called and left message to remind them to hold their Eliquis prior to their procedure at the [facility] Pain Management Department if approved by the prescribing physician. The last dose should have been taken on 08/28/2024 for their procedure on 09/01/2024. Instructed patient to call the number listed below if the Eliquis was not stopped on the date indicated. Instructed patient to please call [phone] Option #3 to speak with the Nurse with any questions. documented in this encounter [facility] 08-29-2024 Instructions Vaishnavi Soria MD - 08/29/2024 11:41 AM EDT Images from the original note were not included. documented in this encounter [facility] 08-29-2024 Note [facility] 08-29-2024 History of Present illness Narrative [...] EXAM, Findings/plan that were documented by my nutritional assistant, who was scribing during the encounter, [...] 4 - Moderate documented in this encounter [facility] 08-24-2024 Telephone encounter Note Left voicemail regarding scheduling Neuropysch testing and follow up in late September/early October respectively. Crystal number included for call back. [facility] 08-24-2024 Miscellaneous Notes Left voicemail regarding scheduling Neuropysch testing and follow up in late September/early October respectively. Crystal number included for call back. documented in this encounter [facility] 08-24-2024 History of Present illness Narrative Images from the original note were not included. [facility] FOLLOWUP/ESTABLISHED PATIENT VISIT PRINCIPAL NEUROLOGIC DIAGNOSIS: Multiple sclerosis DISEASE SUMMARY Date of onset: 12/1998 Date of diagnosis of MS: 1998 Disease course at onset: Progressive with relapses Current disease course: Progressive with relapses Previous disease therapies: Glatiramer acetate 2002, 4843-4318, 7474-4349 Fingolimod 07/2014-04/2016 (switched because of heart issues [...] with her urologist. Urology provider outside the [facility] She also reports a recurrence of a rash that began about a week ago. She has an appointment with her treatment manager on Thursday. She was in the ED ([facility]) yesterday for low BP and elevated glucose- home health nurse came yesterday and took vitals and recommended ED eval. She monitors her blood pressure at home and has reached out to her potato spotter for guidance on when to withhold medication. She also monitors her blood glucose levels, noting a reading of 201 mg/dL this morning before coffee and 345 mg/dL yesterday after taking insulin. She attributes her elevated blood glucose levels to a history of (MRCP with stenting) and plans to follow up with her toilet products molder. She notes a loss of endurance for [...] REVIEW OF SYSTEMS: Neuro-QoL Functions (higher=better functioning) [facility] from 07/28/2024 in [facility] from 12/24/2023 in [facility] Office Visit from 11/10/2023 in [facility] Upper Extremity Domain T Score 38 34 38 Lower Extremity Domain T Score 37 37 37 Cognitive Function Domain T Score 26 35 35 Positive Affect Well Being T Score -- -- -- Ability To Participate In Social Roles T Score 41 42 42 Satisfaction With Social Roles T Score 42 43 42 Neuro-QoL Symptoms (higher=worse symptoms) [facility] from 07/28/2024 in [facility] from 12/24/2023 in [facility] Office Visit from 11/10/2023 in [facility] Sleep Domain T Score 70 68 69 Fatigue Domain T Score 66 58 56 Anxiety Domain T Score 57 56 52 Depression Domain T Score 59 54 51 Stigma Domain T Score 61 63 63 Emotional Behavior Dyscontrol T Score -- -- -- *NeuroQoL is a multi-domain patient-reported quality of life questionnaire. PHQ-[address] [facility] from 07/28/2024 in [facility] from 12/24/2023 in [facility] PHQ-9 Score 16 12 *PHQ-9 is a questionnaire for depressive symptoms, with scores 0-4 indicating none, 5-9 mild, 10-14 moderate, 15-19 moderately severe, and 20-27 severe symptoms. PROMIS-[address] [facility] from 07/28/2024 in Neurology Office Visit from [...] Cervical myelopathy (HCC) CHF (congestive heart failure) ([facility]) Cognitive impairment on aricept Colitis COPD (chronic obstructive pulmonary disease) (HCC) Diabetes ([facility]) Dr. Flores following Dyslipidemia Full dentures GERD (gastroesophageal reflux disease) GI bleed 2020 History of loop recorder pt reports battery is [place] (hard of hearing) Hypertension controlled with meds IBS (irritable bowel syndrome) Multiple sclerosis ([facility]) Dr. Woods Myocardial infarct, old 03/2016 Obesity Pain management Pancreatitis ([facility]) [address] Greenfield RLS (restless legs syndrome) Sleep apnea no cpap since loosing 100lbs Tobacco dependence quit 12/26 Urinary incontinence Wears glasses PAST SURGICAL HISTORY Procedure Laterality Date BACK SURGERY HX lower x3 CARPAL TUNNEL lt and rt COLONOSCOPY FLX DX W/COLLJ SPEC WHEN PFRMD 10/12/2014 Colonoscopy inpt [facility] COLONOSCOPY FLX DX W/COLLJ SPEC WHEN [...] Flowsheet Row Office Visit from 11/10/2023 in [facility] Office Visit from 09/24/2023 in [facility] Office Visit from 01/29/2023 in [facility] Processing Speed Total Number Correct 33 41 [...] 5 Biceps 5 5 Triceps 5 5 Kindergarten Instructional Assistant 5 5 Dorsal interossei 4+ 4 Lower [...] and Stretching Follow-up: In 2 months at [facility] [place], or Virtual Visit with [facility] or sooner if needed I spent a total of 40 minutes on the date of the service which included preparing to see the patient, [id number] patient care, completing clinical documentation, obtaining and/or reviewing separately obtained history, performing a medically appropriate examination, counseling and educating the patient/family/caregiver, ordering medications, tests, or procedures, and communicating results to the patient/family/caregiver. Bill Woods PA-C The chart was reviewed for possible participation in the following studies:None Recording using [employer] software for draft documentation of the visit was discussed with the patient/authorized client services representative; all questions welcomed and answered. Patient/authorized client services representative agreed to proceed documented in this encounter [facility] 08-24-2024 Note [facility] 08-23-2024 History and physical note PROCEDURE EVALUATION & HISTORY AND PHYSICAL EXAM SUBJECTIVE: Elo Gray is a 68 year old woman who presents to [facility] for right SIJ injection. First time. Face lesions much better. No active infectious process. Afebrile. Ms. Gray denies any contraindications to the procedure including , coagulopathy, infection, recent cerebral/myocardial infarct, and hemodynamic instability. She states she is NPO and has a river driver for return home. Last dose Eliquis Thursday morning Instructed to take next dose not until tomorrow after 2;45 or 3 pm Iodine allergy - internal hives Will use [id number]-ojnyov-qdnlc or containing contrast today. Relevant medications in [...] COPD (chronic obstructive pulmonary disease) (HCC) Diabetes ([facility]) Dr. Flores following Dyslipidemia Full dentures GERD (gastroesophageal reflux disease) GI bleed 2020 History of loop recorder pt reports battery is [place] (hard of hearing) Hypertension controlled with meds IBS (irritable bowel syndrome) Multiple sclerosis ([facility]) Dr. Woods Myocardial infarct, old 03/2016 Obesity Pain management Pancreatitis ([facility]) [address] Greenfield RLS (restless legs syndrome) Sleep apnea no cpap since loosing 100lbs Tobacco dependence quit 12/26 Urinary incontinence Wears glasses PAST SURGICAL HISTORY Procedure Laterality Date BACK SURGERY HX lower x3 CARPAL TUNNEL lt and rt COLONOSCOPY FLX DX W/COLLJ SPEC WHEN PFRMD 10/12/2014 Colonoscopy inpt [facility] COLONOSCOPY FLX DX W/COLLJ SPEC WHEN [...] 50 over 150) ~20 units daily Insulin [place], Disposable, (BD ULTRAFINE III MINI PEN) 31 [...] to surgery 01/16/24 for surgery 01/20/24 from potato spotter per DR MACKENZIE albuterol HFA (PROVENTIL HFA, [...] DOSE -7 DAYS PRIOR TO SURGERY PER PILOT BOAT CAPTAIN FOR SURGERY 01/20/24 FOCUSED ROS: CV: none RESP: none OBJECTIVE: BP 143/59 Temp 36.2 C (97.2 F) (Temporal) Resp 18 Wt 68.9 kg (152 lb) LMP 02/22/2000 (Approximate) SpO2 99% BMI 27.80 kg/m Significant changes in the patient's condition since the last [facility] visit: No Provisional Diagnosis: Sacroiliitis [M46.1] Chronic right sacroiliac joint pain [M53.3, G89.29] Planned Procedure: right SIJ injection Heather Davis MD [facility] 08-23-2024 History and physical note PROCEDURE EVALUATION & HISTORY AND PHYSICAL EXAM SUBJECTIVE: Elo Gray is a 68 year old woman who presents to [facility] for right SIJ injection. First time. Face lesions much better. No active infectious process. Afebrile. Ms. Gray denies any contraindications to the procedure including , coagulopathy, infection, recent cerebral/myocardial infarct, and hemodynamic instability. She states she is NPO and has a river driver for return home. Last dose Eliquis Thursday morning Instructed to take next dose not until tomorrow after 2;45 or 3 pm Iodine allergy - internal hives Will use [id number]-[id number]-abvei or containing contrast today. Relevant medications in [...] of loop recorder pt reports battery is [place] (hard of hearing) Hypertension controlled with meds IBS (irritable bowel syndrome) Multiple sclerosis ([facility]) Dr. Woods Myocardial infarct, old 03/2016 Obesity Pain management Pancreatitis ([facility]) [address] Greenfield RLS (restless legs syndrome) Sleep apnea no cpap since loosing 100lbs Tobacco dependence quit 12/26 Urinary incontinence Wears glasses PAST SURGICAL HISTORY Procedure Laterality Date BACK SURGERY HX lower x3 CARPAL TUNNEL lt and rt COLONOSCOPY FLX DX W/COLLJ SPEC WHEN PFRMD 10/12/2014 Colonoscopy inpt [facility] COLONOSCOPY FLX DX W/COLLJ SPEC WHEN [...] 50 over 150) ~20 units daily Insulin [place], Disposable, (BD ULTRAFINE III MINI PEN) 31 [...] to surgery 01/16/24 for surgery 01/20/24 from potato [address]ter per DR MACKENZIE albuterol HFA (PROVENTIL HFA, [...] DOSE -7 DAYS PRIOR TO SURGERY PER PILOT BOAT CAPTAIN FOR SURGERY 01/20/24 FOCUSED ROS: CV: none RESP: none OBJECTIVE: BP 143/59 Temp 36.2 C (97.2 F) (Temporal) Resp 18 Wt 68.9 kg (152 lb) LMP 02/22/2000 (Approximate) SpO2 99% BMI 27.80 kg/m Significant changes in the patient's condition since the last [facility] visit: No Provisional Diagnosis: Sacroiliitis [M46.1] Chronic right sacroiliac joint pain [M53.3, G89.29] Planned Procedure: right SIJ injection Heather Davis MD documented in this encounter [facility] 08-17-2024 Note [facility] 08-16-2024 Note [facility] 08-12-2024 History of Present illness Narrative [...] PATIENT PRESENTS WITH AN IMPLANTABLE OR ATTACHED UNDERCOAT SPRAYER: No RADIOLOGY DEPARTMENT: MR; Exam(s) Completed: Head: Routine Brain Spine: Cervical spine PERIPHERAL IV DATA: Not applicable SIGNED BY: RT True(R) August 12, 2024 9:00 AM documented in this encounter [facility] 08-12-2024 Note [facility] 08-10-2024 Telephone encounter Note The following approved medication requests have been transmitted electronically. Requested Prescriptions Signed Prescriptions Disp Refills modafinil (PROVIGIL) 200 mg tablet 30 tablet 5 Sig: Take 1 tablet by mouth once daily for 180 days. Authorizing Provider: BILL WOODS PA-C [facility] 08-10-2024 Miscellaneous Notes The following approved [...] Appointment FYI.... new script requested Elizabeth Pearce documented in this encounter [facility] 08-10-2024 Telephone encounter Note There is a separate refill encounter for modafinil and it was sent to provider [facility] 08-10-2024 Miscellaneous Notes There is a [...] for today at 1:45PM with first available [employer] JANICE. Patient verbalized understanding. No further questions at this time. JEAN MARIE Min RN called, no answer. Left VM to call office back. RN called listed contact: Aubree Chastity, friend. No answer. Left VM asking to have Kendra call our office. JEAN MARIE Min documented in this encounter [facility] 08-09-2024 Telephone encounter Note Source : call from patient requesting refill. Delivery : e-script Requested Prescriptions Pending Prescriptions Disp Refills modafinil (PROVIGIL) 200 mg tablet 30 tablet 5 Sig: Take 1 tablet by mouth once daily for 180 days. DX : Patient last seen 08/03/24 Next Appointment FYI.... new script requested Elizabeth Pearce [facility] 08-05-2024 Note [facility] ntkrishna 08-05-2024 History of Present illness Narrative Images from the original note were not included. [facility] Established Patient Consultation No referring provider [...] extremity symptoms. On Eliquis, prior hx of [place]. Smokes half a pack a day of [...] Diagnosis Date Anxiety and depression Atrial fibrillation ([facility]) Dr. Butler following- pt states blood clot in heart Cardiomyopathy ([facility]) Cervical myelopathy ([facility]) CHF (congestive heart failure) ([facility]) Cognitive impairment on aricept Colitis COPD (chronic obstructive pulmonary disease) ([facility]) Diabetes ([facility]) Dr. Flores following Dyslipidemia Full dentures GERD (gastroesophageal reflux disease) GI bleed 2020 History of loop recorder pt reports battery is [place] (hard of hearing) Hypertension controlled with meds IBS (irritable bowel syndrome) Multiple sclerosis ([facility]) Dr. Woods Myocardial infarct, old 03/2016 Obesity Pain management Pancreatitis ([facility]) [address] Greenfield RLS (restless legs syndrome) Sleep apnea no cpap since loosing 100lbs Tobacco dependence quit 12/26 Urinary incontinence Wears glasses Past Surgical History: PAST SURGICAL HISTORY Procedure Laterality Date BACK SURGERY HX lower x3 CARPAL TUNNEL lt and rt COLONOSCOPY FLX DX W/COLLJ SPEC WHEN PFRMD 10/12/2014 Colonoscopy inpt [facility] COLONOSCOPY FLX DX W/COLLJ SPEC WHEN [...] 50 over 150) ~20 units daily Insulin [place], Disposable, (BD ULTRAFINE III MINI PEN) 31 [...] to surgery 01/16/24 for surgery 01/20/24 [address] DR MACKENZIE albuterol HFA (PROVENTIL HFA, [...] DOSE -7 DAYS PRIOR TO SURGERY PER PILOT BOAT CAPTAIN FOR SURGERY 01/20/24 acetaminophen (TYLENOL EXTRA STRENGTH) [...] Lymph 1.00 - 4.00 k/uL 1.50 Abs [place] <0.87 k/uL 0.55 Abs Eosin <0.46 k/uL 0.23 Abs Baso <0.11 k/uL 0.07 NRBC /100 WBC 0.0 Latest Ref Rng & Units 02/21/2024 02/22/202407/2907/29/2024 CMP Sodium 136 - 144 mmol/L 139 [...] review of medical records: I reviewed the [facility] chart. Personal review of image, tracing or [...] No Change Instructions: Continue present activity Physician nict-ka-hwmo time was 10 minutes with > 50% [...] 4 - Moderate Chloe Mackenzie MD Neurosurgery [facility] August 05, 2024 2:03 PM 68 y/o female presents to office for a routine 6 month follow up from sx that was completed 02/19/2024. She reports 3/10 pain where the incision was made but overall feeling much better. Xray obtained documented in this encounter [facility] 08-05-2024 Note [facility] 08-05-2024 History of Present illness Narrative D Physical Medicine and Rehabilitation F/u patient August 05, 2024 Last visit March 29, 2024 SUBJECTIVE HISTORY OF PRESENT ILLNESS: Elo Gray is a 68 year old woman for f/u back pain Folliowing with pain management, Dr. Heather Davis Prior 3 low back (unclear dates, completed in [place], fusions) and 1 cervical surgeries (2016 in [place]) Since last eval, 2 weeks ago had pancreatic stone and removed and stent placed via MRCP Recent f/u with Dr. Mackenzie 08/04/24 Previous surgery 01/20/24 T10-T11 lami and L3-L4 lami, then readmitted for I & D from infection with Dr. Mackenzie NSGY. Was given IV vanco but had reaction and had to stop and then placed on bactrim and completed. Having some pain on the right side of low back Pain worse with sit to stand transfers Lumbar xr yesterday with very posterior sacrum and facetogenic changes Last visit with Dr. Buenrostro 04/08/24, next 08/17/24 Doing PT via [facility]- using [facility] in [place]- tolerating therapies. MRI L spine 07/27/23 completed [...] signal intensity and morphology. Cord T2 Plaque [place]: None New T2 Lesions: None Interval Cord [...] of loop recorder pt reports battery is [place] (hard of hearing) Hypertension controlled with meds IBS (irritable bowel syndrome) Multiple sclerosis ([facility]) Dr. Woods Myocardial infarct, old 03/2016 Obesity Pain management Pancreatitis ([facility]) [address] Greenfield RLS (restless legs syndrome) Sleep apnea no cpap since loosing 100lbs Tobacco dependence quit 12/26 Urinary incontinence Wears glasses PAST SURGICAL HISTORY Procedure Laterality Date BACK SURGERY HX lower x3 CARPAL TUNNEL lt and rt COLONOSCOPY FLX DX W/COLLJ SPEC WHEN PFRMD 10/12/2014 Colonoscopy inpt [facility] COLONOSCOPY FLX DX W/COLLJ SPEC WHEN [...] 50 over 150) ~20 units daily Insulin [place], Disposable, (BD ULTRAFINE III MINI PEN) 31 [...] to surgery 01/16/24 for surgery 01/20/24 from [address] per DR MACKENZIE albuterol HFA (PROVENTIL HFA, [...] DOSE -7 DAYS PRIOR TO SURGERY PER PILOT BOAT CAPTAIN FOR SURGERY 01/20/24 isosorbide mononitrate ER (IMDUR) [...] + thigh thrust, (-) pelvic compression, +Gaenselen's,+ Haiku's Data Review: [facility] records independently reviewed ASSESSMENT/PLAN 68 yo woman with PMH anxiety, depression, afib on eliquis, CHrEF 2/2 CM, colitis, COPD, DM, HPL, h/o GIB, HTN, h/o TN, obesity, pancreatitis, RLS, MS, cognitive impairments, cervical [...] Mackenzie/TIGIST She is continuing to work with [facility] PT at this point and should continue [...] which included preparing to see the patient, omig-ji-orzu patient care, completing clinical documentation, performing a [...] Courtney Schultz RN documented in this encounter [facility] 08-05-2024 Note [facility] 08-04-2024 Note [facility] 08-04-2024 History of Present illness Narrative Summary: [...] PATIENT PRESENTS WITH AN IMPLANTABLE OR ATTACHED UNDERCOAT SPRAYER: No RADIOLOGY DEPARTMENT: General X-ray: Exam(s) Completed: Spine X-Ray(s): Lumbar AP / LAT / L5-S1 / FLEX-EXT PERIPHERAL IV DATA: Not applicable SIGNED BY: RT Chemo(R) August 04, 2024 10:08 AM documented in this encounter [facility] 08-04-2024 Note [facility] Chloe cervantes 08-03-2024 Telephone encounter Note Summary: appointment lvm for patient to call so we can move her neuro test to september [facility] 08-03-2024 Miscellaneous Notes Summary: appointment lvm for patient to call so we can move her neuro test to september documented in this encounter [facility] 08-03-2024 Note [facility] 08-03-2024 History of Present illness Narrative Images from the original note were not included. [facility] FOLLOWUP/ESTABLISHED PATIENT VIRTUAL VISIT PRINCIPAL NEUROLOGIC DIAGNOSIS: Multiple sclerosis DISEASE SUMMARY Date of onset: 12/1998 Date of diagnosis of MS: 1998 Disease course at onset: Progressive with relapses Current disease course: Progressive with relapses Previous disease therapies: Glatiramer acetate 2002, [id number], 4350-8213 Fingolimod 07/2014-04/2016 (switched because of heart issues [...] visit. Either the patient or their legal client services representative has been informed of the risks and benefits of -- and alternatives to -- treatment through a remote evaluation and consents to proceed with the evaluation remotely. Today's visit is being completed virtually; pt consented. Accompanied by self. Last seen 07/28/24. Currently not on DMT. Saw [place] 07/28/24 for urgent visit after hospitalizations for [...] neuropsych testing Hoping to get back to [facility] on Thursday - hasn't been feeling well enough Had a FIELD CHECKER for a while until she quit. Doesn't have one currently REVIEW OF SYSTEMS: Mood: PHQ9 responses reviewed and appear below Pain:reviewed on nursing intake documentation Memory/Concentration: see HPI Neuro-QoL Functions (higher=better functioning) Flowsheet Row [facility] from 07/28/2024 in Neurology [facility] from 12/24/2023 in [facility] Office Visit from 11/10/2023 in [facility] Upper Extremity Domain T Score 38 34 [...] Row Distance [facility] from 07/28/2024 in Neurology [facility] from 12/24/2023 in [facility] Office Visit from 11/10/2023 in [facility] Sleep Domain T Score 70 68 69 [...] Cervical myelopathy (HCC) CHF (congestive heart failure) ([facility]) Cognitive impairment on aricept Colitis COPD (chronic obstructive pulmonary disease) ([facility]) Diabetes ([facility]) Dr. Flores following Dyslipidemia Full dentures GERD (gastroesophageal reflux disease) GI bleed 2020 History of loop recorder pt reports battery is [place] (hard of hearing) Hypertension controlled with meds IBS (irritable bowel syndrome) Multiple sclerosis ([facility]) Dr. Woods Myocardial infarct, old 03/2016 Obesity Pain management Pancreatitis [address] Greenfield RLS (restless legs syndrome) Sleep apnea no cpap since loosing 100lbs Tobacco dependence quit 12/26 Urinary incontinence Wears glasses PAST SURGICAL HISTORY Procedure Laterality Date BACK SURGERY HX lower x3 CARPAL TUNNEL lt and rt COLONOSCOPY FLX DX W/COLLJ SPEC WHEN PFRMD 10/12/2014 Colonoscopy inpt [facility] COLONOSCOPY FLX DX W/COLLJ SPEC WHEN [...] which included preparing to see the patient, [id number] patient care, completing clinical documentation, obtaining and/or reviewing separately obtained history, counseling and educating the patient/family/caregiver, ordering medications, tests, or procedures, and communicating results to the patient/family/caregiver. Bill Woods PA-C documented in this encounter [facility] 08-02-2024 Telephone encounter Note [facility] office visit: 11/10/2023 [facility] virtual visit: 07/28/2024 Labs reviewed. ALT Date [...] CrCl cannot be calculated (Unknown ideal weight.). PDMP website checked and validated. All prescriptions have been APPROPRIATELY filled. No suspicious activity was identified. 08/02/2024 by Amy NORWOOD APRN.CNP The following approved medication requests have been transmitted electronically. Requested Prescriptions Signed Prescriptions Disp Refills modafinil (PROVIGIL) 200 mg tablet 30 tablet 5 Sig: Take 1 tablet by mouth once daily for 180 days. Authorizing Provider: AMY NORWOOD APRN.CNP [facility] 08-02-2024 Miscellaneous Notes [facility] office visit: 11/10/2023 [facility] virtual visit: 07/28/2024 Labs reviewed. ALT Date [...] CrCl cannot be calculated (Unknown ideal weight.). [facility] website checked and validated. All [...] 08/03/2024 Tiffanie Cline documented in this encounter [facility] 08-02-2024 Telephone encounter Note [facility] office visit: 11/10/2023 [facility] virtual visit: 03/04/2024 [facility] appt: Visit date not found Labs reviewed. [...] mouth once daily. Authorizing Provider: AMY NORWOOD APRN.LARD MIXER [facility] 08-02-2024 Miscellaneous Notes [facility] office visit: 11/10/2023 [facility] virtual visit: 03/04/2024 [facility] appt: Visit date not found Labs reviewed. [...] mouth once daily. Authorizing Provider: AMY NORWOOD APRN.LARD MIXER Source : electronic from pharmacy requesting refill. Delivery : e-script Requested Prescriptions Pending Prescriptions Disp Refills donepezil (ARICEPT) 10 mg tablet [Pharmacy Med Name: donepezil 10 mg tablet] 180 tablet 3 Sig: Take 2 tablets by mouth once daily. DX : Patient last seen: 07/28/2024 Next Appointment : 08/03/2024 Tiffanie Cline documented in this encounter [facility] 08-02-2024 Telephone encounter Note Source : electronic from pharmacy requesting refill. Delivery : e-script Requested Prescriptions Pending Prescriptions Disp Refills modafinil (PROVIGIL) 200 mg tablet [Pharmacy Med Name: modafinil 200 mg tablet] 30 tablet 5 Sig: Take 1 tablet by mouth once daily. DX : Patient last seen: 07/28/2024 Next Appointment : 08/03/2024 Tiffanie Cline [facility] Work Phone: 08-02-2024 Telephone encounter Note Source : electronic from pharmacy requesting refill. Delivery : e-script Requested Prescriptions Pending Prescriptions Disp Refills donepezil (ARICEPT) 10 mg tablet [Pharmacy Med Name: donepezil 10 mg tablet] 180 tablet 3 Sig: Take 2 tablets by mouth once daily. DX : Patient last seen: 07/28/2024 Next Appointment : 08/03/2024 Tiffanie Cline T [facility] Work Phone: 08-01-2024 Telephone encounter Note CERTIFIED NURSES AIDE introduced self to patient and verified patient [...] GI provider sends over medical records to [place] office. Patient is completing formal swallow evaluation through different hospital system (states her GI provider has written and order for it). Discussed follow up at [place] within 1-3 months with Derrick Kinsey. Patient states she wants to keep her appointment with Carlos INFANTE next week. Amy Fowler APRN.[place] [facility] 08-01-2024 Miscellaneous Notes CERTIFIED NURSES AIDE introduced self to patient and verified patient [...] GI provider sends over medical records to [place] office. Patient is completing formal swallow evaluation through different hospital system (states her GI provider has written and order for it). Discussed follow up at [place] within 1-3 months with Derrick Kinsey. Patient states she wants to keep her appointment with Carlos INFANTE next week. Amy Fowler APRN.CNP Crystal Call Name of caller : Elo Relationship to patient: Self Return call phone number : [phone] Reason for call : Patient returning your call. States her phone was locked and unable to answer; she will be waiting for your call. documented in this encounter [facility] 08-01-2024 Telephone encounter Note Crystal Call Name of caller : Elo Relationship to patient: Self Return call phone number : [phone] Reason for call : Patient returning your call. States her phone was locked and unable to answer; she will be waiting for your call. [facility] 08-01-2024 Miscellaneous Notes Called patient to request him to have x-rays done before seeing Dr Bright on 08-04-24. I had to leave a detailed VM documented in this encounter [facility] 08-01-2024 Telephone encounter Note Called patient to request him to have x-rays done before seeing Dr Bright on 08-04-24. I had to leave a detailed VM [facility] 08-01-2024 Telephone encounter Note 1132: Attempted to call patient to discuss recent lab results. Left voice message with call back number. 1449: Attempted to call patient to discuss recent lab results again. Voice message with call back number provided. [facility] Work Phone: 08-01-2024 Miscellaneous Notes 1132: Attempted to call patient to discuss recent lab results. Left voice message with call back number. 1449: Attempted to call patient to discuss recent lab results again. Voice message with call back number provided. documented in this encounter [facility] 07-29-2024 Telephone encounter Note Summary: appointment lvm for patient to call so we can get her scheduled for her mris,neuropsychological test and to push her follow up back 1-3 months [facility] 07-29-2024 Miscellaneous Notes Summary: appointment lvm for patient to call so we can get her scheduled for her mris,neuropsychological test and to push her follow up back 1-3 months documented in this encounter [facility] 07-28-2024 Instructions Amy Fowler APRN.CNP - [...] it done through out speech therapy at [facility]. Should you choose to do local speech therapy, please send me contact number/ fax number to send the orders to. 4- An order has been placed for repeat NPT testing for your reported cognitive decline over time. I will ask our schedulers to help you schedule this at [place] as well. 5- Please try to allow access for [facility] to see your outside hospital records. If they are unable to share it via [employer], you can see if they will fax them to us at # [phone] 6- Continue to monitor off MS disease modifying therapy at this time. 7- Follow up with Bill LOPEZ/ Pako WITT team in 1-3 months Go to the emergency room should your symptoms continue to worsen or you develop shortness of breath, chest pain, worsening of swallowing, disorientation, severe headaches, sudden weakness, sudden numbness or tingling, or facial droop. documented in this encounter [facility] 07-28-2024 History of Present illness Narrative Images from the original note were not included. [facility] FOLLOWUP/ESTABLISHED VIRTUAL PATIENT VISIT PRINCIPAL NEUROLOGIC DIAGNOSIS: Multiple sclerosis DISEASE SUMMARY Date of onset: 12/1998 Date of diagnosis of MS: 1998 Disease course at onset: Progressive with relapses Current disease course: Progressive with relapses Previous disease therapies: Glatiramer acetate 2002, 4355-7005, 8216-0276 Fingolimod 07/2014-04/2016 (switched because of heart issues [...] Today's visit is being completed virtually over [employer]. I have communicated my name and active licensure. The patient's identity and physical location were verified at the time of this visit. Either the patient or their legal client services representative has been informed of the risks [...] UTI, she was prescribed an antibiotic by CERTIFIED NURSES AIDE at [facility]. After 7 day course she did not [...] slowed from her baseline. She went to [place] ED and was admitted. Per patient during [...] dry mouth - follows with speech therapy ([facility]), last visit was on Thursday - interested [...] worse but gait has not changed. Has [facility] nurse that came to house on Thursday. [...] multi-domain patient-reported quality of life questionnaire PHQ-9 Flowsheet Row [place] [facility] from 07/28/2024 in Neurology [facility] from 12/24/2023 in [facility] PHQ-9 Score 16 12 *PHQ-9 is a questionnaire for depressive symptoms, with scores 0-4 indicating none, 5-9 mild, 10-14 moderate, 15-19 moderately severe, and 20-27 severe symptoms. PROMIS-10 Flowsheet Row [facility] from 07/28/2024 in Neurology Office Visit [...] Diagnosis Date Anxiety and depression Atrial fibrillation ([facility]) Dr. Butler following- pt states blood clot in heart Cardiomyopathy ([facility]) Cervical myelopathy ([facility]) CHF (congestive heart failure) ([facility]) Cognitive impairment on aricept Colitis COPD (chronic obstructive pulmonary disease) ([facility]) Diabetes ([facility]) Dr. Flores following Dyslipidemia Full dentures GERD (gastroesophageal reflux disease) GI bleed 2020 History of loop recorder pt reports battery is [place] (hard of hearing) Hypertension controlled with meds IBS (irritable bowel syndrome) Multiple sclerosis ([facility]) Dr. Woods Myocardial infarct, old 03/2016 Obesity Pain management Pancreatitis [address] Greenfield RLS (restless legs syndrome) Sleep apnea no cpap since loosing 100lbs Tobacco dependence quit 12/26 Urinary incontinence Wears glasses PAST SURGICAL HISTORY Procedure Laterality Date BACK SURGERY HX lower x3 CARPAL TUNNEL lt and rt COLONOSCOPY FLX DX W/COLLJ SPEC WHEN PFRMD 10/12/2014 Colonoscopy inpt [facility] COLONOSCOPY FLX DX W/COLLJ SPEC WHEN [...] for shared access of medical records through [employer] and/ or request medical records be faxed to [facility] for more comprehensive care. PLAN: - Continue to monitor off DMT - MRI brain and cervical, orders were previously placed - Lab orders placed: UA/UC, CBC, CMP - MBS/ swallow evaluation orders placed - Continue to work with [facility] LABELER/PT/ OT as previously established - Follow up with primary team 1-3 months, sooner if needed [facility] on 07/28/24 SWALLOW EVALUATION URINALYSIS, WITH MICROSCOPIC COMPLETE BLOOD COUNT AND DIFFERENTIAL COMPREHENSIVE METABOLIC PANEL CONSULT TO SPEECH THERAPY NEUROPSYCHOLOGICAL TESTING CONSULT BACTERIAL CULTURE, URINE Patient Health Education Discussed at Visit: Emotional Health/Wellness, Need for PCP, and Smoking Cessation Follow-up: In 2 months at [place] or Virtual Visit with [facility] I spent a total of 45 minutes on the date of the service which included preparing to see the patient, [id number] patient care, completing clinical documentation, obtaining and/or reviewing separately obtained history, performing a medically appropriate examination, counseling and educating the patient/family/caregiver, and ordering medications, tests, or procedures. Amy Fowler APRN.[place] [facility] for Multiple Sclerosis documented in this encounter [facility] 07-28-2024 Note [facility] 07-28-2024 Telephone encounter Note RN spoke [...] for today at 1:45PM with first available [employer] JANICE. Patient verbalized understanding. No further questions at this time. JEAN MARIE Min [facility] 07-27-2024 Telephone encounter Note RN called, no answer. Left VM to call office back. RN called listed contact: Aubree Haywood, friend. No answer. Left VM asking to have Kendra call our office. Mechelle, RN [facility] 07-27-2024 Telephone encounter Note Call went right to voicemail, left message regarding MyChart message requesting appointment with Bill Woods. Included in message was Crystal number for call back and notification of appt date/time for patient. [facility] 07-27-2024 Miscellaneous Notes Call went right to voicemail, left message regarding MyChart message requesting appointment with Bill Woods. Included in message was [place] number for call back and notification of appt date/time for patient. documented in this encounter [facility] 07-19-2024 Telephone encounter Note [place] is requesting most recent OV notes. Printed electronically signed OV notes and faxed. Received confirmation. Filed in drawer Jayleen Roche MA [facility] 07-19-2024 Miscellaneous Notes Nichelle is requesting most recent OV notes. Printed electronically signed OV notes and faxed. Received confirmation. Filed in drawer Jayleen Roche MA documented in this encounter [facility] 07-12-2024 Telephone encounter Note Refilled. [facility] 07-12-2024 Miscellaneous Notes Refilled. Patient phones requesting refills as follows: Last seen: 03/29/24 Last refill: 04/12/24 Requested Prescriptions Pending Prescriptions Disp Refills lidocaine (LIDODERM) 5 % 60 Patch 2 Sig: Apply 1-2 Patches as directed once daily. TO AFFECTED AREA. REMOVE AFTER 12 HOURS. Please review and advise. Janell Garcia documented in this encounter [facility] 07-08-2024 Telephone encounter Note Patient phones requesting refills as follows: Last seen: 03/29/24 Last refill: 04/12/24 Requested Prescriptions Pending Prescriptions Disp Refills lidocaine (LIDODERM) 5 % 60 Patch 2 Sig: Apply 1-2 Patches as directed once daily. TO AFFECTED AREA. REMOVE AFTER 12 HOURS. Please review and advise. Janell Garcia [facility] 07-07-2024 Telephone encounter Note That is fine! Glad she is doing so well! Continue to monitor sugars! [facility] 07-07-2024 Miscellaneous Notes That is fine! [...] would be fine. documented in this encounter [facility] 07-06-2024 Telephone encounter Note Patient called in to notify Joseline Flores CNP that her PCP took her off of her Actos today. Also her HA1C was 6.4. She is wanting to make sure this change is okay with Joseline. Please let patient know if this is okay or not. She states that a mychart response would be fine. [facility] 05-27-2024 Telephone encounter Note [employer] message sent to Pt, as requested, with instructions on how to link her Libreview with the [facility] patient portal for data sharing. Tenisha Messer RN May 27, 2024 3:35 PM [facility] 05-27-2024 Miscellaneous Notes [employer] message sent to Pt, as requested, with instructions on how to link her Libreview with the [facility] patient portal for data sharing. Tenisha Messer RN May 27, 2024 3:35 PM Patient is requesting instructions through [employer] to supply clerk CGM to JERORD office Patient has FREESTYLE JANAY 2 sensor/air surveillance operator Thank you! documented in this encounter [facility] 05-26-2024 Telephone encounter Note Patient is requesting instructions through [employer] to supply clerk CGM to JERROD office Patient has FREESTYLE JANAY 2 sensor/air surveillance operator Thank you! [facility] 05-26-2024 History of Present illness Narrative VIRTUAL VISIT PROGRESS NOTE I have communicated my name and active licensure. The patient's identity and physical location were verified at the time of this visit. Either the patient or their legal client services representative has been informed of the risks [...] tab daily SMBG Type of Monitor: Other Meal MantraE CGM 2 NOT SHARED, PATIENT REPORTS Frequency [...] 0845 01/05/24 0832 01/20/24 1954 02/18/24 1732 02/18/24201802/19/24 0604 02/20/24 0528 02/21/24 0944 02/22/24 0454 [...] of loop recorder pt reports battery is [place] (hard of hearing) Hypertension controlled with meds [...] W/COLLJ SPEC WHEN PFRMD 10/12/2014 Colonoscopy inpt [facility] COLONOSCOPY FLX DX W/COLLJ SPEC WHEN [...] 1 tablet by mouth every morning. Insulin Kendalia, Disposable, (BD ULTRAFINE III MINI PEN) 31 [...] to surgery 01/16/24 for surgery 01/20/24 from potato spotter per DR MACKENZIE albuterol HFA (PROVENTIL HFA, [...] DOSE -7 DAYS PRIOR TO SURGERY PER PILOT BOAT CAPTAIN FOR SURGERY 01/20/24 No current facility-administered medications [...] 2 diabetes mellitus without complication, unspecified whether terminologist insulin use (HCC) (primary encounter diagnosis) Comment: well controlled per current No changes to MOUNJARO or ACTOS F/U July in office with [...] A rash: No documented in this encounter [facility] 05-26-2024 Note [facility] 05-04-2024 Note Date of Procedure 05/04/2024. Agriculturist Information Special Delivery Carrier: edwige. Start time: 8:43 AM. Stop time: 8:43 AM. OCT Macula Interpretation Right Eye Normal without fluid. Left Eye Normal without fluid. Interval Change Right Eye Stable. Left Eye Stable. [facility] 05-04-2024 Note Date of Procedure 05/04/2024. Agriculturist Information Special Delivery Carrier: edwige. Start time: 7:55 AM. Stop time: 8:26 AM. Reliability Right Eye Good. Left Eye Poor. Interpretation Right Eye Circumferential constriction. Left Eye Circumferential constriction. Interval Change Right Eye Initial. Left Eye Initial. [facility] 05-04-2024 Note [facility] 05-04-2024 History of Present illness Narrative 1. MS (multiple sclerosis) (HCC) 2. Optic nerve atrophy, bilateral -reviewed neuro note 03/04/24; progressive MS with relapses Previous disease therapies: Glatiramer acetate 2002, 4182-9447, 2596-0749 Fingolimod 07/2014-04/2016 (switched because of heart issues [...] is not currently driving Difficult to assess change director time given lack of past baseline data [...] (OCT mac per provider discretion) Kourtney Purdy, OD documented in this encounter [facility] 04-13-[address] Webb e-prescribed the Rx to Ms. Gray's pharmacy yesterday, 04/12/24. Closing this encounter. [facility] 04-13-[address] Webb e-prescribed the Rx to Ms. Gray's pharmacy yesterday, 04/12/24. Closing this encounter. Dr. Webb was sent a separate refill encounter request for the lidocaine patches for Ms. Gray. documented in this encounter [facility] 04-12-2024 Telephone encounter Note Refilled. [facility] 04-12-2024 Miscellaneous Notes Refilled. Patient last seen on 03/29/24 Last refill on 12/29/23 Patient phones requesting refills as follows: Requested Prescriptions Pending Prescriptions Disp Refills lidocaine (LIDODERM) 5 % 60 Patch 2 Sig: Apply 1-2 Patches as directed once daily. TO AFFECTED AREA. REMOVE AFTER 12 HOURS. Please review and advise. Leandra Maguire documented in this encounter [facility] 04-12-2024 Telephone encounter Note Patient last seen on 03/29/24 Last refill on 12/29/23 Patient phones requesting refills as follows: Requested Prescriptions Pending Prescriptions Disp Refills lidocaine (LIDODERM) 5 % 60 Patch 2 Sig: Apply 1-2 Patches as directed once daily. TO AFFECTED AREA. REMOVE AFTER 12 HOURS. Please review and advise. Leandra Maguire [facility] 04-12-[address] Webb was sent a separate refill encounter request for the lidocaine patches for Ms. Gary. [facility] 04-08-2024 Note [facility] 04-08-2024 History of Present illness Narrative Images from the original note were not included. [facility] Pre-Procedure Note Room: 9 SUBJECTIVE: Elo Gray is a 68 year old woman who presents to [facility] for TPIs. Since [...] standard of care and necessary. Son in senior living for amphetamines Patient feels safe He doesn't [...] tolerated the procedure well without apparent complications. [facility] Post-Procedure Note Patient [...] Davis MD I spent a total of 5555-7144 minutes on the date of the service which included TPIs and a 15-minute discussion - completely separate and distinct from TPIs - re: opioids, medication use, exercise and expectations, and recent stressors. Encouraged gentle exercise, meditation, smoking cessation, and physiotherapy for posture and core. 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 yes documented in this encounter [facility] 04-08-2024 Note [facility] 03-30-2024 Telephone encounter Note Notified patient that Dr. Mackenzie sent in refill on Oxycodone, and he stated that this will be the last time he will refill this medication. Explained that pain management will have to provide pain medication going forward. Patient voiced understanding, and confirmed that she is seeing Pain Management on 04/08. Jazlyn Bermudez LPN [facility] 03-30-2024 Miscellaneous Notes Notified patient that Dr. Mackenzie sent in refill on Oxycodone, and he stated that this will be the last time he will refill this medication. Explained that pain management will have to provide pain medication going forward. Patient voiced understanding, and confirmed that she is seeing Pain Management on 04/08. Jazlyn Bermudez LPN documented in this encounter [facility] 03-29-2024 Note [facility] 03-29-2024 History of Present illness Narrative [...] 3 low back (unclear dates, completed in [place], fusions) and 1 cervical surgeries (2016 in [place]) Since last eval, had surgery 01/20/24 T10-T11 lami and L3-L4 lami, then readmitted for I & D from infection with Dr. Avril ESCOTO. Was given IV vanco but had reaction and had to stop and then placed on bactrim and completed. Having some discomfort with incision and if moving wrong Has f/u with Dr. Porter garcia. Pain 08/04 Doing PT via [facility]- using [facility] in [place]- tolerating therapies. MRI L spine completed showing: [...] signal intensity and morphology. Cord T2 Plaque [place]: None New T2 Lesions: None Interval Cord [...] of loop recorder pt reports battery is [place] (hard of hearing) Hypertension controlled with meds [...] W/COLLJ SPEC WHEN PFRMD 10/12/2014 Colonoscopy inpt [facility] COLONOSCOPY FLX DX W/COLLJ SPEC WHEN [...] 1 tablet by mouth every morning. Insulin Kendalia, Disposable, (BD ULTRAFINE III MINI PEN) 31 [...] to surgery 01/16/24 for surgery 01/20/24 from potato spotter per DR MACKENZIE albuterol HFA (PROVENTIL HFA, [...] DOSE -7 DAYS PRIOR TO SURGERY PER PILOT BOAT CAPTAIN FOR SURGERY 01/20/24 [DISCONTINUED] teriflunomide (AUBAGIO) 14 [...] COPD, DM, HPL, h/o GIB, HTN, h/o TN, obesity, pancreatitis, RLS, MS, cognitive impairments, cervical [...] Mackenzie/TIGIST She is continuing to work with [facility] PT at this point and should continue [...] which included preparing to see the patient, [id number] patient care, completing clinical documentation, performing a medically appropriate examination, counseling and educating the patient/family/caregiver, and ordering medications, tests, or procedures. documented in this encounter [facility] 03-29-2024 Nurse Note Images from the [...] The following tests/records were reviewed: testing at [facility]. Do you need any refills today from the doctor?no Courtney Schultz RN [facility] 03-29-2024 Nurse Note Images from the [...] The following tests/records were reviewed: testing at [facility]. Do you need any refills today from the doctor?no Courtney Schultz RN documented in this encounter [facility] 03-28-2024 Telephone encounter Note Patient is requesting a refill on Oxycodone. [facility] 03-28-2024 Miscellaneous Notes Patient is requesting a refill on Oxycodone. documented in this encounter [facility] 03-21-2024 Telephone encounter Note Patient is requesting a refill on Oxycodone. Jazlyn Bermudez LPN [facility] 03-21-2024 Miscellaneous Notes Patient is requesting a refill on Oxycodone. Jazlyn Bermudez LPN documented in this encounter [facility] 03-11-2024 Telephone encounter Note Updated clinical chart notes from most recent visit with Rosa Flores CNP on 02/24/2024 faxed to [facility] for existing DME Rx. Fax confirmation received. Tenisha Messer RN March 11, 2024 2:06 PM [facility] 03-11-2024 Miscellaneous Notes Updated clinical chart notes from most recent visit with Rosa Flores CNP on 02/24/20[facility]. Fax confirmation received. Tenisha Messer RN March 11, 2024 2:06 PM documented in this encounter [facility] 03-08-2024 Note [facility] 03-08-2024 History of Present illness Narrative Images from the original note were not included. [facility] Established Patient Consultation No referring provider [...] extremity symptoms. On Eliquis, prior hx of TN. Smokes half a pack a day of [...] Diagnosis Date Anxiety and depression Atrial fibrillation ([facility]) Dr. Butler following- pt states blood clot in heart Cardiomyopathy (HCC) Cervical myelopathy (HCC) CHF (congestive heart failure) ([facility]) Cognitive impairment on aricept Colitis COPD (chronic obstructive pulmonary disease) ([facility]) Diabetes ([facility]) Dr. Flores following Dyslipidemia Full dentures GERD (gastroesophageal reflux disease) GI bleed 2020 History of loop recorder pt reports battery is [place] (hard of hearing) Hypertension controlled with meds IBS (irritable bowel syndrome) Multiple sclerosis ([facility]) Dr. Woods Myocardial infarct, old 03/2016 Obesity Pain management Pancreatitis [address] Greenfield RLS (restless legs syndrome) Sleep apnea no cpap since loosing 100lbs Tobacco dependence quit 12/26 Urinary incontinence Wears glasses Past Surgical History: PAST SURGICAL HISTORY Procedure Laterality Date BACK SURGERY HX lower x3 CARPAL TUNNEL lt and rt COLONOSCOPY FLX DX W/COLLJ SPEC WHEN PFRMD 10/12/2014 Colonoscopy inpt [facility] COLONOSCOPY FLX DX W/COLLJ SPEC WHEN [...] 1 tablet by mouth every morning. Insulin Kend[place], Disposable, (BD ULTRAFINE III MINI PEN) 31 [...] to surgery 01/16/24 for surgery 01/20/24 [address] DR MACKENZIE albuterol HFA (PROVENTIL HFA, [...] DOSE -7 DAYS PRIOR TO SURGERY PER PILOT BOAT CAPTAIN FOR SURGERY 01/20/24 isosorbide mononitrate ER (IMDUR) [...] review of medical records: I reviewed the [facility] chart. Personal review of image, tracing or [...] No Change Instructions: Continue present activity Physician [id number] time was 10 minutes with > 50% [...] 4 - Moderate Chloe Mackenzie MD Neurosurgery [facility] March 08, 2024 11:11 AM documented in this encounter [facility] 03-08-2024 Nurse Note Patient is here today for a post-op appointment for her lowerback [facility] 03-08-2024 Nurse Note Patient is here today for a post-op appointment for her lowerback documented in this encounter [facility] 03-04-2024 History of Present illness Narrative Images from the original note were not included. [facility] MULTIPLE SCLEROSIS FOLLOWUP/ESTABLISHED PATIENT VIRTUAL VISIT PRINCIPAL NEUROLOGIC DIAGNOSIS: Multiple sclerosis DISEASE SUMMARY Date of onset: 12/1998 Date of diagnosis of MS: 1998 Disease course at onset: Progressive with relapses Current disease course: Progressive with relapses Previous disease therapies: Glatiramer acetate 2002, 4327-7149, 3500-3067 Fingolimod 07/2014-04/2016 (switched because of heart issues [...] visit. Either the patient or their legal client services representative has been informed of the risks [...] laminectomy and L3-L4 laminectomy 01/20/24. Went to [facility] after surgery for rehab and noticed [...] dermatology 02/25 Plans to go back to [facility] after Thanksgiving REVIEW OF SYSTEMS: Mood: PHQ9 responses reviewed and appear below Pain:reviewed on nursing intake documentation Neuro-QoL Functions (higher=better functioning) Flowsheet Row [facility] from 12/24/2023 in [facility] Office Visit from 11/10/2023 in [facility] Office Visit from 09/24/2023 in [facility] Upper Extremity Domain T Score 34 38 [...] Flowsheet Row Distance Health from 12/24/2023 in [facility] Office Visit from 11/10/2023 in [facility] Office Visit from 09/24/2023 in [facility] Sleep Domain T Score 68 69 71 [...] aricept Colitis COPD (chronic obstructive pulmonary disease) ([facility]) Diabetes ([facility]) Dr. Flores following Dyslipidemia Full dentures GERD (gastroesophageal reflux disease) GI bleed 2020 History of loop recorder pt reports battery is [place] (hard of hearing) Hypertension controlled with meds IBS (irritable bowel syndrome) Multiple sclerosis ([facility]) Dr. Woods Myocardial infarct, old 03/2016 Obesity Pain management Pancreatitis [address] Greenfield RLS (restless legs syndrome) Sleep apnea no cpap since loosing 100lbs Tobacco dependence quit 12/26 Urinary incontinence Wears glasses PAST SURGICAL HISTORY Procedure Laterality Date BACK SURGERY HX lower x3 CARPAL TUNNEL lt and rt COLONOSCOPY FLX DX W/COLLJ SPEC WHEN PFRMD 10/12/2014 Colonoscopy inpt [facility] COLONOSCOPY FLX DX W/COLLJ SPEC WHEN [...] Bill Woods PA-C documented in this encounter [facility] 03-04-2024 Note [facility] 03-04-2024 Telephone encounter Note LVM reminding her of the appointment with Dr. Mackenzie. Also advised to complete xrays prior to the appointment. If she is unable to complete the xrays she will need to reschedule. Provided call back number. [facility] 03-04-2024 Miscellaneous Notes LVM reminding her of the appointment with Dr. Mackenzie. Also advised to complete xrays prior to the appointment. If she is unable to complete the xrays she will need to reschedule. Provided call back number. documented in this encounter [facility] 02-26-2024 History of Present illness Narrative [...] EXAM, Findings/plan that were documented by my nutritional assistant, who was scribing during the encounter, [...] 3 - Low documented in this encounter [facility] 02-26-2024 Note [facility] 02-24-2024 Note HNO ID: [id number] Author: AMY CAMPBELL MA Service: ? Author Type: Hvac Engineer Type: Progress Notes Filed: 02/24/2024 09:38 Note Text: [facility] 02-24-2024 History of Present illness Narrative Images from the original note were not included. Images from the original note were not included. OFFICE VISIT PROGRESS NOTE CC Elo Gray is a 68 year old who presents today for blood sugar review, DM med dose review, adjust. HPI Diagnosed with diabetes mellitus type II, ~ 1999 Last endocrine OV 08/19/2023 Some elements copied [...] tab daily SMBG Type of Monitor: Other [employer] JANAY CGM 2 Frequency of Monitoring Values [...] 6.8 High 7.2 High CM Recent Labs 10/28/21 0139 10/28/21 0730 01/14/23 [...] Cervical myelopathy (HCC) CHF (congestive heart failure) ([facility]) Cognitive impairment on aricept Colitis COPD (chronic obstructive pulmonary disease) (HCC) Diabetes ([facility]) Dr. Flores following Dyslipidemia Full dentures GERD (gastroesophageal reflux disease) GI bleed 2020 History of loop recorder pt reports battery is [place] (hard of hearing) Hypertension controlled with meds IBS (irritable bowel syndrome) Multiple sclerosis ([facility]) Dr. Woods Myocardial infarct, old 03/2016 Obesity Pain management Pancreatitis [address] Greenfield RLS (restless legs syndrome) Sleep apnea no cpap since loosing 100lbs Tobacco dependence quit 12/26 Urinary incontinence Wears glasses PAST SURGICAL HISTORY Procedure Laterality Date BACK SURGERY HX lower x3 CARPAL TUNNEL lt and rt COLONOSCOPY FLX DX W/COLLJ SPEC WHEN PFRMD 10/12/2014 Colonoscopy inpt [facility] COLONOSCOPY FLX DX W/COLLJ SPEC WHEN [...] 1 tablet by mouth every morning. Insulin Kend[place], Disposable, (BD ULTRAFINE III MINI PEN) 31 [...] to surgery 01/16/24 for surgery 01/20/24 from potato [address]ter [address] DR MACKENZIE albuterol HFA (PROVENTIL HFA, [...] DOSE -7 DAYS PRIOR TO SURGERY PER PILOT BOAT CAPTAIN FOR SURGERY 01/20/24 No current facility-administered medications [...] 2 diabetes mellitus without complication, unspecified whether terminologist insulin use (HCC) (primary encounter diagnosis) Comment: [...] Rosa Flores CNP documented in this encounter [facility] 02-24-2024 Note [facility] 02-22-2024 Note [facility] 02-21-2024 Note HNO ID: [id number] Author: QUE COOK RN Service: Nursing Author Type: Registered Nurse Type: Nursing Progress Note Filed: 02/21/2024 18:13 Note Text: Charge nurse called ALIZA Lopez for ultrasound guided IV, [facility] 02-21-2024 Note [facility] 02-20-2024 Note [facility] 02-19-2024 Telephone encounter Note Images from the original note were not included. Bill Woods PA-C P Neur Mellen Nurse Pako Woods Can you reach out to patient to check in on how she is doing? Thanks! Called patient. Left LVM to call office. Gaby Petersen RN February 19, 2024 4:32 PM [facility] 02-19-2024 Miscellaneous Notes Images from the original note were not included. Bill Woods PA-C P Neur Mellen Nurse Pako Woods Can you reach out to patient to check in on how she is doing? Thanks! Called patient. Left LVM to call office. Gaby Petersen RN February 19, 2024 4:32 PM documented in this encounter [facility] 02-19-2024 Note [facility] 02-19-2024 Note [facility] 02-18-2024 Note [facility] 02-18-2024 History of Present illness Narrative Images from the original note were not included. [facility] Established Patient Consultation No referring provider [...] extremity symptoms. On Eliquis, prior hx of [place]. Smokes half a pack a day of [...] COPD (chronic obstructive pulmonary disease) (HCC) Diabetes ([facility]) Dr. Flores following Dyslipidemia Full dentures GERD (gastroesophageal reflux disease) GI bleed 2020 History of loop recorder pt reports battery is [place] (hard of hearing) Hypertension controlled with meds IBS (irritable bowel syndrome) Multiple sclerosis ([facility]) Dr. Woods Myocardial infarct, old 03/2016 Obesity Pain management Pancreatitis [address] Greenfield RLS (restless legs syndrome) Sleep apnea no cpap since loosing 100lbs Tobacco dependence quit 12/26 Urinary incontinence Wears glasses Past Surgical History: PAST SURGICAL HISTORY Procedure Laterality Date BACK SURGERY HX lower x3 CARPAL TUNNEL lt and rt COLONOSCOPY FLX DX W/COLLJ SPEC WHEN PFRMD 10/12/2014 Colonoscopy inpt [facility] COLONOSCOPY FLX DX W/COLLJ SPEC WHEN [...] review of medical records: I reviewed the [facility] chart. Personal review of image, tracing or specimen: Chloe Mackenzie MD Assessment & Plan 68 year old female who presents with a surgical wound infection. She is s/p T10-T11 and L3-L4 laminectomy 01/20/24 and presented our clinic today with wound dehiscence and signs of infection. She will be admitted for I&D tomorrow. Recommendations: As above Medicines: No Change Instructions: Continue present activity Physician hwny-mj-cptg time was 30 minutes with > 50% [...] Medical Decision Making Level: 4 - Moderate Dhiego Avril, MD [facility] February 18, 2024 9:24 PM documented in this encounter [facility] 02-18-2024 Nurse Note 68 y/o female presents to office with concerns of a possible wound infection. She reports that there is seepage from the incision. Denies fever or chill. Ongoing for 4 days. Was informed by the facility she was in that it appeared infected but only given a bandaid. [facility] 02-18-2024 Nurse Note 68 y/o female presents to office with concerns of a possible wound infection. She reports that there is seepage from the incision. Denies fever or chill. Ongoing for 4 days. Was informed by the facility she was in that it appeared infected but only given a bandaid. documented in this encounter [facility] 02-17-2024 Telephone encounter Note Patient c/o having blood tinged drainage to small area of wound x 2 days. She denies any s/s of infection. Her nurse at the [facility] cleaned area and applied a dressing. Patient is scheduled to see PCP on and will have him check it at that time. Per Dr. Mackenzie, scheduled office visit tomorrow 02/17 for wound check. Jazlyn Bermudez LPN [facility] 02-17-2024 Miscellaneous Notes Patient c/o having blood tinged drainage to small area of wound x 2 days. She denies any s/s of infection. Her nurse at the [facility] cleaned area and applied a dressing. Patient is scheduled to see PCP on and will have him check it at that time. Per Dr. Mackenzie, scheduled office visit tomorrow 02/17 for wound check. Jazlyn Bermudez LPN documented in this encounter [facility] 02-11-2024 Note [facility] 02-11-2024 History of Present illness Narrative Images from the original note were not included. [facility] Established Patient Consultation No referring provider [...] extremity symptoms. On Eliquis, prior hx of [place]. Smokes half a pack a day of [...] of loop recorder pt reports battery is [place] (hard of hearing) Hypertension controlled with meds [...] W/COLLJ SPEC WHEN PFRMD 10/12/2014 Colonoscopy inpt [facility] COLONOSCOPY FLX DX W/COLLJ SPEC WHEN [...] 1 tablet by mouth every morning. Insulin Kend[place], Disposable, (BD ULTRAFINE III MINI PEN) 31 [...] to surgery 01/16/24 for surgery 01/20/24 from [address]ter per DR MACKENZIE albuterol HFA (PROVENTIL HFA, [...] DOSE -7 DAYS PRIOR TO SURGERY PER PILOT BOAT CAPTAIN FOR SURGERY 01/20/24 No current facility-administered medications [...] Lymph 1.00 - 4.00 k/uL 1.40 Abs [place] <0.87 k/uL 0.81 Abs Eosin <0.46 k/uL [...] review of medical records: I reviewed the [facility] chart. Personal review of image, tracing or [...] No Change Instructions: Continue present activity Physician ijas-gd-rdxp time was 30 minutes with > 50% [...] Moderate Chloe Craig MD 10:08 AM 12/18/2023 [facility] documented in this encounter [facility] 02-11-2024 Nurse Note 68 y/o female presents to office for a routine op appointment. She had a T10-T11 and L3-L4 laminectomy on 01/20/2024. States her pain is a 6/10 currently, but thinks this is due to increased activity with walking to xray and back up to the office. Denies fever, nausea or vomiting. [facility] 02-11-2024 Nurse Note 68 y/o female presents to office for a routine op appointment. She had a T10-T11 and L3-L4 laminectomy on 01/20/2024. States her pain is a 6/10 currently, but thinks this is due to increased activity with walking to xray and back up to the office. Denies fever, nausea or vomiting. documented in this encounter [facility] 02-11-2024 History of Present illness Narrative [...] PATIENT PRESENTS WITH AN IMPLANTABLE OR ATTACHED UNDERCOAT SPRAYER: No RADIOLOGY DEPARTMENT: General X-ray: Exam(s) Completed: Spine X-Ray(s): Lumbar AP / LAT / L5-S1 PERIPHERAL IV DATA: Not applicable SIGNED BY: RT Gavin(R) February 11, 2024 11:00 AM documented in this encounter [facility] 02-11-2024 Note [facility] nt 02-10-2024 Telephone encounter Note The following approved medication requests have been transmitted electronically. Requested Prescriptions Signed Prescriptions Disp Refills modafinil (PROVIGIL) 200 mg tablet 30 tablet 5 Sig: Take 1 tablet by mouth once daily for 180 days. Authorizing Provider: BILL WOODS PA-C [facility] 02-10-2024 Miscellaneous Notes The following approved [...] None Tiffanie Cline documented in this encounter [facility] 02-10-2024 Telephone encounter Note Source : electronic from pharmacy requesting refill. Delivery : e-script Requested Prescriptions Pending Prescriptions Disp Refills modafinil (PROVIGIL) 200 mg tablet [Pharmacy Med Name: modafinil 200 mg tablet] 30 tablet 5 Sig: Take 1 tablet by mouth once daily for 30 days. DX : Patient last seen: 12/24/2023 Next Appointment : None Tiffanie Cline [facility] Work Phone: 02-09-2024 Telephone encounter Note Per Ines patient is completely out of Oxycodone, and is requesting refill be sent to [facility] pharmacy listed in [facility]. Patient is s/p T10-T11 Laminectomy followed by L3-4 Laminectomy on 01/20/[address] Mackenzie. Jazlyn Bermudez LPN [facility] 02-09-2024 Miscellaneous Notes Per Ines patient is completely out of Oxycodone, and is requesting refill be sent to [facility] pharmacy listed in [facility]. Patient is s/p T10-T11 Laminectomy followed by L3-4 Laminectomy on 01/20/[address] Mackenzie. Jazlyn Bermudez LPN documented in this encounter [facility] 02-05-2024 Telephone encounter Note Patient has enough Oxycodone to last over the weekend, but will need a refill when Dr. Mackenzie returns to office on 02/09/24. RF needs to be sent to [facility] pharmacy listed in [facility]. Follow up appt is scheduled on 02/11/24. Jazlyn Bermudez LPN [facility] 02-05-2024 Miscellaneous Notes Patient has enough Oxycodone to last over the weekend, but will need a refill when Dr. Mackenzie returns to office on 02/09/24. RF needs to be sent to [facility] pharmacy listed in [facility]. Follow up appt is scheduled on 02/11/24. Jazlyn Bermudez LPN documented in this encounter [facility] 02-02-2024 Telephone encounter Note Spoke to the patient to let her know that Dr. Mackenzie would like her to have xrays done prior to her appointment on 02/11/24. She understood and said she will get those done prior to her appointment. [facility] 02-02-2024 Miscellaneous Notes Spoke to the patient to let her know that Dr. Mackenzie would like her to have xrays done prior to her appointment on 02/11/24. She understood and said she will get those done prior to her appointment. documented in this encounter [facility] 01-27-2024 Telephone encounter Note JEAN MARIE Chacon with [facility], calling with request for new Oxycodone 5 mg Rx be sent to [facility] with change from every 6 hrs to every 4 hrs. Pharmacy was added to patient's chart for electronic faxing. , Fx # [phone]. Jazlyn Bermudez LPN [facility] 01-27-2024 Miscellaneous Notes [facility] with request for new Oxycodone 5 mg Rx be sent to [facility] with change from every 6 hrs to every 4 hrs. Pharmacy was added to patient's chart for electronic faxing. , Fx # [phone]. Jazlyn Bermudez LPN documented in this encounter [facility] 01-25-2024 Miscellaneous Notes Patient is s/p T10-T11 Laminectomy followed by L3-4 Laminectomy on 01/20/[address] Mackenzie. Patient is asking if Oxycodone Rx can be increased in strength or changed to every 4 hr instead of every 6 hrs. Patient states that pain is quit intense by the time her next dose is due. Patient is currently inpatient at [facility] in [place], [place]. Patient reports that she is having PT without any difficulty and will be starting OT this afternoon. Rx would have to be sent to their facility. Jazlyn Bermudez LPN documented in this encounter [facility] 01-25-2024 Telephone encounter Note Patient is s/p T10-T11 Laminectomy followed by L3-4 Laminectomy on 01/20/[address] Mackenzie. Patient is asking if Oxycodone Rx can be increased in strength or changed to every 4 hr instead of every 6 hrs. Patient states that pain is quit intense by the time her next dose is due. Patient is currently inpatient at [facility] in [place], [place]. Patient reports that she is having PT without any difficulty and will be starting OT this afternoon. Rx would have to be sent to their facility. Jazlyn Bermudez LPN [facility] 01-22-2024 Note HNO ID: [id number] Author: BARRETT SAWYER RN Service: Nursing Author Type: Registered Nurse Type: Nursing Progress Note Filed: 01/22/2024 14:12 Note Text: RN gave N2N report to crystal at [facility] 01-21-2024 Note [facility] 01-20-2024 Note [facility] 01-20-2024 Note [facility] 01-20-2024 Note [facility] 01-20-2024 Note HNO ID: [id number] Author: CYNDI MARTINEZ RN Service: Nursing Author Type: Registered Nurse Type: Nursing Progress Note Filed: 01/20/2024 11:03 Note Text: Dr Pace notified of recheck blood sugar 211, to recheck in 30 minutes [facility] 01-19-2024 Note [facility] 01-07-2024 Telephone encounter Note Called patient with + MRSA results. Left message to call office. Jazlyn Bermudez LPN [facility] 01-07-2024 Miscellaneous Notes Called patient with + MRSA results. Left message to call office. Jazlyn Bermudez LPN documented in this encounter [facility] 01-06-2024 Note HNO ID: [id number] Author: JANELL WEAVER RN Service: Nursing Author Type: Registered Nurse Type: Plan of Care Filed: 01/06/2024 11:25 Note Text: + MRSA results called to Jazlyn/ Dr. Mackenzie [facility] 01-06-2024 Telephone encounter Note Form signed by provider and faxed to [phone]. Confirmation received. Placed in file. Amy Campbell MA [facility] 01-06-2024 Miscellaneous Notes Form signed by provider and faxed to [phone]. Confirmation received. Placed in file. Amy Campbell MA A1C 6.8%, low risk for DM complications, cleared from ENDO Form completed documented in this encounter [facility] 01-06-2024 Telephone encounter Note A1C 6.8%, low risk for DM complications, cleared from ENDO Form completed [facility] 01-05-2024 Note Addended by: HEATHER MARIO on: 01/05/2024 12:16 PM Modules accepted: Orders [facility] 01-05-2024 Miscellaneous Notes Addended by: HEATHER MARIO on: 01/05/2024 12:16 PM Modules accepted: Orders documented in this encounter [facility] 01-05-2024 Note [facility] nter 01-05-2024 History of Present illness Narrative PACC [...] COPD, HTN, HLD, CHF, cardiomyopathy, CAD s/p [place] (ASA, Imdur), AF on eliquis ([facility]), IDDM ([facility] on ), RLS, renal insufficiency, [...] new enhancing lesions. Mild parenchymal volume loss. [facility] 2021 (CP, ABN stress) IMPRESSION: 1. [...] Anxiety and depression No date: Atrial fibrillation ([facility]) Comment: Dr. Butler following- pt states blood clot in heart No date: Cardiomyopathy ([facility]) No date: Cervical myelopathy ([facility]) No date: CHF (congestive heart failure) ([facility]) No date: Cognitive impairment Comment: on aricept No date: Colitis No date: COPD (chronic obstructive pulmonary disease) ([facility]) No date: Diabetes ([facility]) Comment: Dr. Flores following No date: Dyslipidemia No date: Full dentures No date: GERD (gastroesophageal reflux disease) No date: GI bleed Comment: 2020 No date: History of loop recorder Comment: pt reports battery is No date: [place] (hard of hearing) No date: Hypertension Comment: controlled with meds No date: IBS (irritable bowel syndrome) No date: Multiple sclerosis ([facility]) Comment: Dr. Woods 03/2016: Myocardial infarct, old [...] W/COLLJ SPEC WHEN PFRMD Comment: Colonoscopy inpt [facility] 02/28/2015: COLONOSCOPY FLX DX W/COLLJ SPEC WHEN [...] by mouth every morning. Taking Yes Insulin [place], Disposable, (BD ULTRAFINE III MINI PEN) 31 [...] to surgery 01/16/24 for surgery 01/20/24 [address] potato [address] DR MACKENZIE Taking Yes albuterol HFA [...] DOSE -7 DAYS PRIOR TO SURGERY PER PILOT BOAT CAPTAIN FOR SURGERY 01/20/24 Taking Yes Cranberry 500 [...] fevers. 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 No neurological symptoms or problems., See HPI Respiratory: Denies COPD, reports seeing pulm 7+ years ago and had PFT done. Uses albuterol inhaler when she gets a cold. Cardiovascular: See HPI GI: Positive for GERD, PUD, Hx pancreatitis : No history of dysuria, frequency or incontinence,, stones or chronic kidney disease, Positive for frequent UTI PLANT PATHOLOGIST: Negative for abnormal vaginal bleeding, abnormal vaginal [...] already been cleared by cardiology (clearance in [facility]) who provided ASA and Eliquis instructions over the phone with the patient while Heather AJ was rooming her. She denies any previous [...] 6. MS -Managed by Carlos INFANTE at [facility] -Recently taken off of Kesimpta due to [...] saw dermatology yesterday who put her on kenContactually crm for the area on her chin. [...] COPD, HTN, HLD, CHF, cardiomyopathy, CAD s/p [place] (ASA, Imdur), AF on eliquis ([facility]), MS (JOHN Woods; Kesimpta), IDDM ([facility] ), RLS, renal insufficiency, IBS, GIB, GERD, colitis, pancreatitis, cognitive impairment, previous suicide attempt, anxiety, depression, toe amputation, chronic back pain s/p cervical fusion/lumbar decompression 2015, recurrent UTI. Has c/o worsening balance and weakness/heaviness in her legs. On Provigil, aricept Per neurology notes from October, Kekarlampta has been held for the last 3 mos due to immunosuppression. JOHN from [facility]'s office provided cardiac clearance. Did not provide instructions on eliquis or ASA. MRI Brain 07/2023: Multiple intracranial white matter lesions compatible with multiple sclerosis. No new T2 lesions and indeterminate new enhancing lesions. Mild parenchymal volume loss. [facility] 2021 (CP, ABN stress) IMPRESSION: 1. [...] on IVC assessment. documented in this encounter [facility] 01-05-2024 Instructions Cheko Bowling PA-C - [...] of your procedure. documented in this encounter [facility] 01-05-2024 Note [facility] 01-05-2024 Note [facility] nt 01-05-2024 Telephone encounter Note Received anti-coagulant instructions from Dr. Butler for surgery. Instructed patient to hold Eliquis for 3 days prior to surgery and ASA for 5 days prior and resume both medications after surgery. Patient voiced understanding. Jazlyn Bermudez LPN [facility] 01-05-2024 Miscellaneous Notes Received anti-coagulant instructions from Dr. Butler for surgery. Instructed patient to hold Eliquis for 3 days prior to surgery and ASA for 5 days prior and resume both medications after surgery. Patient voiced understanding. Jazlyn Bermudez LPN documented in this encounter [facility] 12-30-2023 Telephone encounter Note Refaxed Cardiac Clearance back to Dr. Butler with request for instructions on anticoagulants. Jazlyn Bermudez LPN [facility] 12-30-2023 Miscellaneous Notes Refaxed Cardiac Clearance back to Dr. Butler with request for instructions on anticoagulants. Jazlyn Bermudez LPN documented in this encounter [facility] 12-30-2023 Telephone encounter Note Scheduled surgery on 01/20/24, [facility]. Patient given instructions via phone call on 12/29/23. All questions answered. Medical/Cardiac/Endo clearances sent to care team. Surgery guide mailed to patient. Jazlyn Bermudez LPN [facility] 12-30-2023 Miscellaneous Notes Scheduled surgery on 01/20/24, [facility]. Patient given instructions via phone call on 12/29/23. All questions answered. Medical/Cardiac/Endo clearances sent to care team. Surgery guide mailed to patient. Jazlyn Bermudez LPN documented in this encounter [facility] 12-29-2023 Note [facility] 12-29-2023 History of Present illness Narrative [...] 3 low back (unclear dates, completed in [place], fusions) and 1 cervical surgeries (2016 in [place]) Since last eval, MRI L spine completed [...] signal intensity and morphology. Cord T2 Plaque [place]: None New T2 Lesions: None Interval Cord [...] Anxiety and depression No date: Atrial fibrillation ([facility]) No date: Cardiomyopathy ([facility]) No date: Cervical myelopathy ([facility]) No date: CHF (congestive heart failure) ([facility]) No date: Cognitive impairment No date: Colitis No date: COPD (chronic obstructive pulmonary disease) ([facility]) No date: Diabetes ([facility]) No date: Dyslipidemia No date: GI bleed No date: History of loop recorder No date: Hypertension No date: IBS (irritable bowel syndrome) No date: Multiple sclerosis ([facility]) 03/2016: Myocardial infarct, old No date: Obesity 1977: Pancreatitis No date: Renal insufficiency No date: RLS (restless legs syndrome) No date: Tobacco dependence No date: Urinary incontinence PAST SURGICAL HISTORY No date: BACK SURGERY HX Comment: lower x3 No date: CARPAL TUNNEL Comment: lt and rt 10/12/2014: COLONOSCOPY FLX DX W/COLLJ SPEC WHEN PFRMD Comment: Colonoscopy inpt WC 02/28/2015: COLONOSCOPY FLX DX W/COLLJ SPEC WHEN [...] daily. Blood-Glucose Meter,Continuous (FREESTYLE JANAY 3 READER) [facility] [place] one reader. E11.9 Blood-Glucose Sensor (FREESTYLE [...] 1 tablet by mouth every morning. Insulin [place], Disposable, (BD ULTRAFINE III MINI PEN) 31 [...] COPD, DM, HPL, h/o GIB, HTN, h/o TN, obesity, pancreatitis, RLS, MS, cognitive impairments, cervical [...] which included preparing to see the patient, [id number] patient care, completing clinical documentation, performing a medically appropriate examination, counseling and educating the patient/family/caregiver, and ordering medications, tests, or procedures. documented in this encounter [facility] 12-29-2023 Nurse Note Images from the [...] MEDICATION The following tests/records were reviewed:testing at [facility] Do you need any refills today from the doctor?no Courtney Schultz RN [facility] 12-29-2023 Nurse Note Images from the [...] MEDICATION The following tests/records were reviewed:testing at [facility] Do you need any refills today from the doctor?no Courtney Schultz RN documented in this encounter [facility] 12-24-2023 Note [facility] 12-24-2023 History of Present illness Narrative Images from the original note were not included. [facility] FOR MULTIPLE SCLEROSIS FOLLOWUP/ESTABLISHED PATIENT VIRTUAL VISIT PRINCIPAL NEUROLOGIC DIAGNOSIS: Multiple sclerosis DISEASE SUMMARY Date of onset: 12/1998 Date of diagnosis of MS: 1998 Disease course at onset: Progressive with relapses Current disease course: Progressive with relapses Previous disease therapies: Glatiramer acetate 2002, 6788-4233, 2190-9488 Fingolimod 07/2014-04/2016 (switched because of heart issues [...] visit. Either the patient or their legal client services representative has been informed of the risks [...] high speed lisa, drugs and now in senior living A1C checked by PCP - 6.7 BP has been ok REVIEW OF SYSTEMS: Mood: PHQ9 responses reviewed and appear below Pain:reviewed on nursing intake documentation Neuro-QoL Functions (higher=better functioning) Flowsheet Row [facility] from 12/24/2023 in [facility] Office Visit from 11/10/2023 in [facility] Office Visit from 09/24/2023 in [facility] Upper Extremity Domain T Score 34 38 [...] Flowsheet Row [facility] from 12/24/2023 in [facility] Office Visit from 11/10/2023 in [facility] Office Visit from 09/24/2023 in [facility] Sleep Domain T Score 68 69 71 [...] Anxiety and depression No date: Atrial fibrillation ([facility]) No date: Cardiomyopathy ([facility]) No date: Cervical myelopathy ([facility]) No date: CHF (congestive heart failure) ([facility]) No date: Cognitive impairment No date: Colitis No date: COPD (chronic obstructive pulmonary disease) ([facility]) No date: Diabetes ([facility]) No date: Dyslipidemia No date: GI bleed No date: History of loop recorder No date: Hypertension No date: IBS (irritable bowel syndrome) No date: Multiple sclerosis ([facility]) 03/2016: Myocardial infarct, old No date: Obesity 1978: Pancreatitis No date: Renal insufficiency No date: RLS (restless legs syndrome) No date: Tobacco dependence No date: Urinary incontinence PAST SURGICAL HISTORY No date: BACK SURGERY HX Comment: lower x3 No date: CARPAL TUNNEL Comment: lt and rt 10/12/2014: COLONOSCOPY FLX DX W/COLLJ SPEC WHEN PFRMD Comment: Colonoscopy inpt [facility] 02/28/2015: COLONOSCOPY FLX DX W/COLLJ SPEC [...] which included preparing to see the patient, [id number] patient care, completing clinical documentation, obtaining and/or reviewing separately obtained history, counseling and educating the patient/family/caregiver, ordering medications, tests, or procedures, and communicating results to the patient/family/caregiver. The patient was discussed with Dr. Kinsey prior to appointment Bill Woods PA-C documented in this encounter [facility] 12-18-2023 Note [facility] ntkrishna 12-18-2023 History of Present illness Narrative Images from the original note were not included. [facility] New Patient Consultation No referring provider [...] extremity symptoms. On Eliquis, prior hx of TN. Smokes half a pack a day of cigarettes. Patient does not work and is independent at home. Past Medical History: PAST MEDICAL HISTORY No date: Anxiety and depression No date: Anxiety and depression No date: Atrial fibrillation ([facility]) No date: Cardiomyopathy ([facility]) No date: Cervical myelopathy ([facility]) No date: CHF (congestive heart failure) ([facility]) No date: Cognitive impairment No date: Colitis No date: COPD (chronic obstructive pulmonary disease) ([facility]) No date: Diabetes ([facility]) No date: Dyslipidemia No date: GI bleed No date: History of loop recorder No date: Hypertension No date: IBS (irritable bowel syndrome) No date: Multiple sclerosis ([facility]) 03/2016: Myocardial infarct, old No date: Obesity 1978: Pancreatitis No date: Renal insufficiency No date: RLS (restless legs syndrome) No date: Tobacco dependence No date: Urinary incontinence Past Surgical History: PAST SURGICAL HISTORY No date: BACK SURGERY HX Comment: lower x3 No date: CARPAL TUNNEL Comment: lt and rt 10/12/2014: COLONOSCOPY FLX DX W/COLLJ SPEC WHEN PFRMD Comment: Colonoscopy inpt [facility] 02/28/2015: COLONOSCOPY FLX DX W/COLLJ SPEC [...] daily. Blood-Glucose Meter,Continuous (FREESTYLE JANAY 3 READER) [facility] [place]pense one reader. E11.9 Blood-Glucose Sensor (FREESTYLE [...] 1 tablet by mouth every morning. Insulin [place], Disposable, (BD ULTRAFINE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 Miscellaneous Notes Images from the original note were not included. Called patient, notified of response from Bill below, she states she will contact Dr Soria, her Magneto Repairer, to schedule an appointment. Encouraged patient to [...] to office when able. Maribell Cunha RN [place] Call Name of caller : Elo Relationship to patient: Self Return call phone number : [phone] Reason for call : Pt calling to follow up with her Kesimpta with Coordinator documented in this encounter [facility] 08-31-2023 Telephone encounter Note Called patient, no answer. Message left to return call to office when able. Maribell Cunha RN T [facility] 08-28-2023 Telephone encounter Note Called patient, [...] September at this time. Maribell Cunha RN T [facility] 08-28-2023 Telephone encounter Note Called patient, no answer. Message left to return call to office when able. Maribell Cunha RN T [facility] 08-28-2023 Telephone encounter Note The following approved medication requests have been transmitted electronically. Requested Prescriptions Signed Prescriptions Disp Refills donepezil (ARICEPT) 10 mg tablet 180 tablet 3 Sig: Take 2 tablets by mouth once daily. Authorizing Provider: JAKE KINSEY Ordering User: BILL WOODS PA-C T [facility] 08-28-2023 Miscellaneous Notes The following approved [...] None Tiffanie Cline documented in this encounter [facility] 08-28-2023 Telephone encounter Note Source : electronic from pharmacy requesting refill. Delivery : e-script Requested Prescriptions Pending Prescriptions Disp Refills donepezil (ARICEPT) 10 mg tablet 180 tablet 3 Sig: Take 2 tablets by mouth once daily. DX : Patient last seen: 08/06/2023 Next Appointment : None Tiffanie Cline [facility] Work Phone: 08-28-2023 Telephone encounter Note Crystal Call Name of caller : Elo Relationship to patient: Self Return call phone number : [phone] Reason for call : Pt calling to follow up with her Demian with Coordinator [facility] 08-19-2023 Telephone encounter Note Faxed Freestyle Janay 3 prescription, along with OV notes to Vitor Castano. Confirmation received. Placed in files Amy Campbell MA [facility] 08-19-2023 Miscellaneous Notes Faxed Freestyle Janay 3 prescription, along with OV notes to Vitor Castano. Confirmation received. Placed in files Amy Campbell MA documented in this encounter [facility] 08-19-2023 History of Present illness Narrative [...] Gets diabetic meals through [employer] Follows with [facility] for MS Will be re-evaluated for MS Had recent MRI and several changes were noted Recent issue with dehydration and lower blood sugar of 56 Squad to [facility] and she was rehydrated and sent home [...] FREESTYLE JANAY CGM 2 Frequency of Monitoring MISSING [...] W/COLLJ SPEC WHEN PFRMD 10/12/2014 Colonoscopy inpt [facility] COLONOSCOPY FLX DX W/COLLJ SPEC WHEN [...] times a day. flash glucose scanning reader (PlextronicsSTYLE JANAY 3 READER) Dispense one reader kit. [...] 2 tablets by mouth once daily. Insulin Kendalia, Disposable, (BD ULTRAFINE III MINI PEN) 31 [...] complication, without long-term current use of insulin ([facility]) (primary encounter diagnosis) Comment: overall very well [...] Rosa Flores CNP documented in this encounter [facility] 08-13-2023 Miscellaneous Notes Patient was told to call back and let us know what they found out at the doctor: Patient has bronchitis and she is now on 2 scripts - Augmentin and Teslon perls Order for Speech Therapy Eval and Treat faxed to [phone] [facility] location. Called patient, no answer. Message left indicating ST order has been faxed as requested with phone number of [facility] location for patient to call if she does not hear from them in 24-48 hours to schedule. Maribell Cunha RN Agree with plan by RN. Speech therapy orders entered. Lisa Morataya APRN.[place] Patient returned call to office, verified name [...] for Speech Therapy to pursue locally at [facility]. Order will need faxed to #[phone] and their phone number is [phone]. Routing to covering provider for Bill Woods PA-C. Maribell Cunha RN Called patient, no answer. Message left to return call to office when able. Maribell Cunha RN [place] Call Name of caller : Elo Relationship to patient: Self Return call phone number : [phone] Reason for call : Patient was told to contact office if her speech worsened. Patient is also requesting a order for Speech Therapy. documented in this encounter [facility] 08-12-2023 Miscellaneous Notes See phone encounter 08-11-2023 for further documentation. 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 yes documented in this encounter [facility] 08-11-2023 History of Present illness Narrative Images from the original note were not included. [facility] Pre-Procedure Note Patient Name: Elo Gray Room 21 SUBJECTIVE: Ms. Elo Gray is a 67 year old woman who presents to [facility] for TPIs. Reports [...] year old woman who presents to [facility] for medication update, [...] evident. No specimens collected. No paresthesias elicited. [facility] Post-Procedure Note Patient name: Elo Gray Pre Procedure diagnosis: (G35) MS (multiple sclerosis) ([facility]) (primary encounter diagnosis) (I48.0) Paroxysmal A-fib ([facility]) (M79.18) Myofascial pain syndrome (M79.18) Myofascial pain [...] in the thoracic spine as clinically directed. Film Maker: [email or web address] Transcribe Date/Time: Jul 27 2023 9:50A Dictated by : GRIS LOWERY MD This examination was interpreted and the report reviewed and electronically signed by: GRIS LOWERY MD on Jul 27 2023 10:03AM EST Results-Findings * * *Final Report* * * DATE OF EXAM: Jul 27 2023 9:05AM [facility] 0303 - MRI LUMBAR SPINE WO [...] minutes on the date of the service [id number] with the patient today to discuss new problem (separate from TPIs). Total FTFT [id number] + [phone] documentation documented in this encounter [facility] 08-06-2023 History of Present illness Narrative Images from the original note were not included. [facility] FOLLOWUP/ESTABLISHED PATIENT VISIT PRINCIPAL NEUROLOGIC DIAGNOSIS: Multiple sclerosis DISEASE SUMMARY Date of onset: 12/1998 Date of diagnosis of MS: 1998 Disease course at onset: Progressive with relapses Current disease course: Progressive with relapses Previous disease therapies: Glatiramer acetate 2002, 4388-0323, 0156-1537 Fingolimod 07/2014-04/2016 (switched because of heart issues [...] for a couple months previously Goes to [facility] 4 days per week Follows with eye doctor q6 months SUBJECTIVE & REVIEW OF SYSTEMS: Neuro-QoL Functions (higher=better functioning) Flowsheet [facility] Office Visit from 01/29/2023 in [facility] Office Visit from 01/14/2023 in Neurology Office [...] [age] Neuro-QoL Symptoms (higher=worse symptoms) Flowsheet [facility] Office Visit from 01/29/2023 in [facility] Office Visit from 01/14/2023 in Neurology Office [...] W/COLLJ SPEC WHEN PFRMD 10/12/2014 Colonoscopy inpt [facility] COLONOSCOPY FLX DX W/COLLJ SPEC WHEN [...] 5 Biceps 5 5 Triceps 5 5 Kindergarten Instructional Assistant 5 5 Dorsal interossei 4+ 4+ Lower [...] D supplementation Follow-up: In 3 months at [facility], or Virtual Visit with [facility] I spent a total of 45 minutes on the date of the service which included preparing to see the patient, jzad-[id number] patient care, completing clinical documentation, obtaining and/or reviewing separately obtained history, performing a medically appropriate examination, counseling and educating the patient/family/caregiver, ordering medications, tests, or procedures, and communicating results to the patient/family/caregiver. The patient was seen with Dr. Kinsey. Bill Woods PA-C The chart was reviewed for possible participation in the following studies:None documented in this encounter [facility] 07-31-2023 Miscellaneous Notes Patient returned call to office, verified name and . Patient states she injected Kesimpta last Thursday and started Doxycycline Thursday. She has worse breakout on her face now, she indicates the breakout never clears between doses but significantly worsens for the week after each injection. She is inquiring if longer course of Doxycycline may be recommended and what [place] Care Team's thoughts are. She is scheduled for In Person follow up next 08-05-23 with Bill Woods PA-C. She also plans to schedule follow up visit with Magneto Repairer Dr Soria who prescribes the Doxycycline. Patient [...] to office when able. Maribell Cunha RN [place] Call Name of caller : Elo Gardner Relationship to patient: Self Return call phone number : [phone] Reason for call : Medication : Name : Kesimpta Questions/concern : Patient says she is having a reaction to the Kesimpta. It is causing her face to break out. documented in this encounter [facility] 07-27-2023 History of Present illness Narrative [...] PATIENT PRESENTS WITH AN IMPLANTABLE OR ATTACHED UNDERCOAT SPRAYER: No RADIOLOGY DEPARTMENT: MR; Exam(s) Completed: Head: Multiple Sclerosis Spine: Lumbar spine PERIPHERAL IV DATA: Not applicable SIGNED BY: RT Dann(R) July 27, 2023 8:43 AM documented in this encounter [facility] 07-22-2023 History of Present illness Narrative [...] laboratory parameters, disease state markers and outcomes. Agriculturist Assessment Patient confirmed: Yes Med/dose confirmed: Yes Supplies needed: No supplies needed Missed doses: No Estimated days supply on hand: 0 Next cycle/dose due: 08/03/23 Copay amount: 0 Payment confirmed: Yes Delivery method: FedEx Signature required: No Delivery address: [place] [place] [address] Delivery date: 07/31/23 Questions or concerns for [...] 2 tablets by mouth once daily. Insulin Kendalia, Disposable, (BD ULTRAFINE III MINI PEN) 31 [...] facility-administered medications on file prior to visit. [facility] Visit Assessment - Neurology: Assessment to use: Refill Vaccination Assessment: Date of influenza vaccination reminder: 01/20/2023 Date of most recent vaccination assessment: 01/20/2023 Sarita Ramos CPhT Cardiology, Neurology & Infectious Disease [facility] documented in this encounter [facility] 07-21-2023 Miscellaneous Notes The following approved [...] Efren Keen RPh documented in this encounter [facility] 07-13-2023 Miscellaneous Notes Ms. Gray's refill requests to Dr. Webb was completed and Dr. Webb e-prescribed them to her pharmacy on 07/10/23 at 6:00 PM. Ms. Gray's request for refills for flexeril and lidocaine patches was sent to Dr. Webb in a separate refill encounter. documented in this encounter [facility] 07-10-2023 Miscellaneous Notes Refilled wth total [...] advise. Leandra Maguire documented in this encounter [facility] 06-24-2023 History of Present illness Narrative Images from the original note were not included. [facility] FOLLOWUP/ESTABLISHED PATIENT VISIT PRINCIPAL NEUROLOGIC DIAGNOSIS: Multiple sclerosis DISEASE SUMMARY Date of onset: 12/1998 Date of diagnosis of MS: 1998 Disease course at onset: Progressive with relapses Current disease course: Progressive with relapses Previous disease therapies: Glatiramer acetate 2002, 1610-6690, 3480-4740 Fingolimod 07/2014-04/2016 (switched because of heart issues [...] trying to sit in a recliner at [facility]) - most recent fall on Thursday [...] need longer course according to nurse at [facility]? Plans to schedule follow-up with dermatology [...] (higher=better functioning) Flowsheet Row Office Visit from 01/29/2023 in [facility] Office Visit from 01/14/2023 in Neurology Office [...] 45 46 Neuro-QoL Symptoms (higher=worse symptoms) Flowsheet [facility] Office Visit from 01/29/2023 in [facility] Office Visit from 01/14/2023 in Neurology Office [...] W/COLLJ SPEC WHEN PFRMD 10/12/2014 Colonoscopy inpt [facility] COLONOSCOPY FLX DX W/COLLJ SPEC WHEN [...] 5 Biceps 5 5 Triceps 5 5 Kindergarten Instructional Assistant 5 5 Dorsal interossei 4+ 4+ Lower [...] medical management. Continues to follow with specialists (toilet products molder, pain management, dermatology, cardiology, spine) and PCP. Discussed recent mental health/depression. Encouraged continuing with psychiatry and sooner counseling session if needed. Discussed can call or text [phone] number in the future if needed. Encouraged [...] and Stretching Follow-up: In 3 months at [place] with [facility] I spent a total of 35 minutes on the date of the service which included preparing to see the patient, [id number] patient care, completing clinical documentation, obtaining and/or reviewing separately obtained history, performing a medically appropriate examination, counseling and educating the patient/family/caregiver, ordering medications, tests, or procedures, and communicating results to the patient/family/caregiver. Bill Woods PA-C The chart was reviewed for possible participation in the following studies:None documented in this encounter [facility] 06-16-2023 History of Present illness Narrative Images from the original note were not included. [facility] Pre-Procedure Note Patient Name: Elo Gray Room 9 SUBJECTIVE: Elo Gray is a 67 year old woman who presents to [facility] for medication update, medications, and status encounter. [...] tolerated the procedure well without apparent complications. 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 yes documented in this encounter [facility] 06-12-2023 Miscellaneous Notes Patient returned call [...] to office when able. Maribell Cunha RN Crystal Call Name of caller : Elo Relationship to patient: Self Return call phone number : [phone] Reason for call : Patient would like a call back. Did not specify the reason. 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 yes documented in this encounter [facility] 04-03-2023 History of Present illness Narrative Images from the original note were not included. [facility] Pre-Procedure Note Patient Name: Elo Gray Room 20 SUBJECTIVE: Elo Gray is a 67 year old woman who presents to [facility] for evaluation, status update, discussion about medications, and persistent myofascial pain. Returned a week ago yesterday from [facility]. Had a wonderful time with great weather. Overall she's doing better except for neck pain. Myofascial pain persists in neck and we will proceed with TPIs today. Takes Eliquis - hasn't taken it for 3 days (patient decision; stopped on her own). OK with potato spotter. Reports only used 2 Percocet while in [place]. Cut them in half and used judiciously. Helped with pain and function and allowed her to enjoy vacation. Reports she smoked only 6 packs (120 cigarettes) during the 14 days she was in [facility]. Getting dentures in April 2023. FHP is [...] tolerated the procedure well without apparent complications. [facility] Post-Procedure Note Patient [...] Heather Davis MD documented in this encounter [facility] 03-12-2023 Miscellaneous Notes Notified Pt that [...] Tenisha Messer RN documented in this encounter [facility] 03-12-2023 Miscellaneous Notes Spoke to Gabriella @ [facility] Prior Auth department. Pt's rx for Ozempic was denied. Gabriella states that there is a national shortage and ordered dose is unable to be filled at this time. Will speak to Pt re: switching medications per Rosa. 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 No documented in this encounter [facility] 03-11-2023 History of Present illness Narrative [facility] Office Visit - Follow Up Evaluation Reason for visit today: medication discussion, back pain, neck pain, questions Unaccompanied Room: 8 SUBJECTIVE: Patient Entered Questionnaires PROMIS Score Percentiles PROMIS Global Health Scale 07/01/2017 12/02/2022 03/01/2023 Physical Health Percentile 1 10 10 Mental [...] - still working on teeth Going to [employer]) tomorrow She's here today re: her neck Reports MBBs in the past and RFAs in [facility] (no procedure notes) S/p posterior fusion C4-6 2015 Relief x 6 weeks with MBBs RFA May - started hurting ~ 2 weeks ago Doesn't want to go back to them b/c she felt she was just pushed through without adequate time Pain has returned on the left side only; no pain on the right. She will get [facility] records faxed to office b/f next visit. [...] Discontinue bilevel PAP flash glucose scanning reader (FREESTYLE JANAY 3 [...] 2 tablets by mouth once daily. Insulin Kendalia, Disposable, (BD ULTRAFINE III MINI PEN) 31 [...] W/COLLJ SPEC WHEN PFRMD 10/12/2014 Colonoscopy inpt [facility] COLONOSCOPY FLX DX W/COLLJ SPEC WHEN [...] it Drug Use: No Occupation: worked at [employer] for 10 years Family History FAMILY HISTORY [...] Pertinent Data: Impression IMPRESSION: EXPECTED POSTOPERATIVE APPEARANCE Film Maker: STEPHANIE Transcribe Date/Time: Jan 15 2023 12:52P [...] and assume there are 5 lumbar-type vertebrae. Film Maker: [facility] Transcribe Date/Time: Aug 22 2022 12:23P Dictated by : NELDA SADLER MD This examination was interpreted and the report reviewed and electronically signed by: NELDA SADLER MD on Aug 22 2022 12:28PM EST Results-Findings * * *Final Report* * * DATE OF EXAM: Aug 22 2022 11:44AM [facility] 0326 - MRI THORACIC SPINE WO/W [...] by greater than or equal to 2mm). Film Maker: STEPHANIE Transcribe Date/Time: Aug 22 2022 12:16P Dictated by : NELDA SADLER MD This examination was interpreted and the report reviewed and electronically signed by: NELDA SADLER MD on Aug 22 2022 12:28PM EST Results-Findings * * *Final Report* * * DATE OF EXAM: Aug 22 2022 11:44AM [facility] 0298 - MRI CERVICAL SPINE WO/W IVCON [...] Improvement: None. New Enhancing Lesions: None T2 Walworth of Disease: Moderate. Parenchymal Volume Loss: Mild. [...] signal intensity and morphology. Cord T2 Plaque Walworth: None New T2 Lesions: None Interval Cord [...] COPD, diabetes, GI bleed, IBS, MS, old TN, pancreatitis, RLS, and current smoking who presents for medication encounter, discussion re: Percocet, and questions about her neck pain and previous procedures. Reports MBBs/RFA in the past. No records available, so she will get them. Aware of myelomalacia July MRI; follows with [facility]. Trip planned for [facility]; requesting additional Percocet. Also reports she hurt [...] Stop smoking Continue exercise as tolerated FTFT: [id number] I counseled the patient on the importance [...] your PCP/referring physician. documented in this encounter [facility] 03-05-2023 Miscellaneous Notes Prior Auth denied by [facility] thru [employer]. Explanation and denial printout placed on providers desk for review. Amy Campbell MA Pa Started with [employer]. Amy Campbell MA documented in this encounter [facility] 03-05-2023 Miscellaneous Notes Duplicate encounter Patient also called and sent mc message She was looking for early refill on provigil This was completed yesterday Closing Crystal Call Name of caller : Elo Gray Relationship to patient: Self Return call phone number : [phone] Reason for call : Other : Brief description of concern : Per the patient, she is returning Maribell's call documented in this encounter [facility] 03-05-2023 Miscellaneous Notes Refill was sent yesterday, responded to patient's [employer] message Closing Crystal Call Name of caller : Elo Relationship to patient: Self Return call phone number : [phone] Reason for call : Pt is requesting an early refill on her Modafinil to be picked up from pharmacy on 03/10/23 [facility] documented in this encounter [facility] 03-05-2023 Miscellaneous Notes Freestyle prescription sent to [facility] thru [facility] as per provider. See seperate note. Amy [...] phone pharmacy and notify patient. Rosa Flores APRN.CNP Pt states her Janay 2 came form [facility] ([employer]). Pt also mentioned [facility]. See 09/17/22 MyChart encounter. Previous Janay looks like it had to have a prior auth-see 09/13/22 first MyChart msg and 09/15/22 TE. We need to know WHICH DME the patient uses for her FREESTYLE JANAY CGM fills The script was printed and she is medicare so must go through medical supply co as medicare requires this. Please advise Pt calling in and states someone called her to let her know that the new [place] Janay 3 meter is out. She states she gave permission for the company to call us as she is requesting to get this new meter. (pt stated [place]-even spelled it to me. Guessing Freestyle is what it should be?) documented in this encounter [facility] 03-05-2023 Miscellaneous Notes ESCRIPTED CGM supplies to [facility] documented in this encounter [facility] 03-04-2023 Miscellaneous Notes The following approved medication requests have been transmitted electronically. Requested Prescriptions Signed Prescriptions Disp Refills modafinil (PROVIGIL) 200 mg tablet 30 tablet 5 Sig: Take 1 tablet by mouth once daily for 180 days. Authorizing Provider: BILL WOODS PA-C Per patient sending [employer] message about going on vacation on the for 2 weeks and needs a little early for that reason because she will be out. Source : mychart from patient requesting refill. Delivery : e-script Requested Prescriptions Pending Prescriptions Disp Refills modafinil (PROVIGIL) 200 mg tablet 30 tablet 5 Sig: Take 1 tablet by mouth once daily for 30 days. DX : Patient last seen: 01/29/2023 Next Appointment : None Tiffanie Cline documented in this encounter [facility] 02-23-2023 Miscellaneous Notes Faxed over to [facility] notes. Updated pt via [employer] message. Pt asking for Ozempic 1mg to be ordered as once again the lathe hand is out of the 2mg dose. Requester: Patient Patients last Endocrinology visit occurred 02/11/2023. Follow-up evaluation has been established 08/19/2023. Upcoming Endocrinology Appointments - Next 365 Days Visit Type Date Time Department EST RICHARD PATIENT 08/19/2023 9:15 AM ENDO [facility] . Requested Prescriptions Pending Prescriptions Disp Refills semaglutide (OZEMPIC) 1 mg/dose (4 mg/3 mL) pen 18 mL 3 Sig: Inject 2 mg subcutaneously one time a week. Inject two 1mg injections subcutaneously once a week. Please advise. documented in this encounter [facility] 02-18-2023 History of Present illness Narrative [...] Past Histories independently gathered by the clinical practice support specialist and the remaining scribed note accurately describes my personal service to the patient. Vaishnavi Soria MD Medical Decision Making: Problems: Low: Stable chronic illness Risk: Minimal: Minimal risk from testing/treatment Medical Decision Making Level: 2 - Straightforward documented in this encounter [facility] 02-11-2023 History of Present illness Narrative Images from the original note were not included. Images from the original note were not included. OFFICE VISIT PROGRESS NOTE AQUILES Gray is a 67 year old female [...] Gets diabetic meals through [employer] Follows with [facility] for MS Will be re-evaluated for MS Had recent MRI and several changes were noted Recent issue with dehydration and lower blood sugar of 56 Squad to [facility] and she was rehydrated and sent home [facility] - 02-11-2023 Doing well Had optic MRI [...] tab daily SMBG Type of Monitor: Other Meal MantraE CGM 2 Frequency of Monitorin times a [...] W/COLLJ SPEC WHEN PFRMD 10/12/2014 Colonoscopy inpt [facility] COLONOSCOPY FLX DX W/COLLJ SPEC WHEN [...] 2 tablets by mouth once daily. Insulin Kendalia, Disposable, (BD ULTRAFINE III MINI PEN) 31 [...] 2 diabetes mellitus without complication, unspecified whether mcfp insulin use (HCC) (primary encounter diagnosis) Comment: [...] Rosa Flores CNP documented in this encounter [facility] 02-04-2023 Miscellaneous Notes Dear Maribell, Thank [...] future questions or concerns. Shana Fox Ext [phone] It was my total pleasure working with Kendra and her son! I just got off the phone with Kendra and the bathroom is 90% done and her son will finish up the small details (trim and painting) before the end of the weekend. Hopefully, I get before and after photos, those are always the best! Sincerely, Shana Fox MA, NTP Sustainability Executive Director, MS Navigator Services Delivery MS Navigator Experience Team National MS Society tel [phone] fax [phone] [email or web address] documented in this encounter [facility] 02-03-2023 Miscellaneous Notes Patient called office, verified name and . Patient indicates she completed sleep study yesterday and was told she does not have sleep apnea, just RLS. Routing to Bill Woods PA-C to update. Maribell Cunha RN documented in this encounter [facility] 01-29-2023 Miscellaneous Notes Patient has arrived for visit with Bill Woods PA-C today at 1:00. Routing to Bill Carlos INFANTE. Maribell Cunha RN Crystal Call Name of caller : Elo Relationship to patient: Self Return call phone number : [phone] Reason for call : Patient would like a call back from clinical nursing intern regarding test results. documented in this encounter [facility] 01-29-2023 History of Present illness Narrative Images from the original note were not included. [facility] FOLLOWUP/ESTABLISHED PATIENT VISIT PRINCIPAL NEUROLOGIC DIAGNOSIS: Multiple sclerosis DISEASE SUMMARY Date of onset: 12/1998 Date of diagnosis of MS: 1998 Disease course at onset: Progressive with relapses Current disease course: Progressive with relapses Previous disease therapies: Glatiramer acetate 2002, 7147-9508, 0766-7568 Fingolimod 07/2014-04/2016 (switched because of heart issues [...] next Kesimpta - given antibiotics Saw brain health for eval - recommended cardiology complete EKG - seeing cardiology tomorrow tomorrow Son working on bathroom update - laying ector yesterday Excited to go to [place] to visit sister for Thanksgiving Lost 13 [...] (higher=better functioning) Flowsheet Row Office Visit from 01/29/2023 in [facility] Office Visit from 01/14/2023 in Neurology Office [...] 45 46 Neuro-QoL Symptoms (higher=worse symptoms) Flowsheet Row Office Visit from 01/29/2023 in [facility] Office Visit from 01/14/2023 in Neurology Office [...] in Neurology Office Visit from 07/01/2017 in [facility] Global Physical Health T Score 37.4 26.7 [...] W/COLLJ SPEC WHEN PFRMD 10/12/2014 Colonoscopy inpt [facility] COLONOSCOPY FLX DX W/COLLJ SPEC WHEN [...] vigilance due to smoking habit. Follow-up with potato spotter about Aricept use as directed. Exam is:Stable, [...] MS medications Follow-up: In 6 months at [facility] I spent a total of 45 minutes on the date of the service which included preparing to see the patient, [id number] patient care, completing clinical documentation, obtaining and/or reviewing separately obtained history, counseling and educating the patient/family/caregiver, ordering medications, tests, or procedures, and communicating results to the patient/family/caregiver. The patient was discussed with Dr. Kinsey. Bill Woods PA-C The chart was reviewed for possible participation in the following studies:None documented in this encounter [facility] 01-26-2023 Instructions Fawad Simmons APRN.LARD MIXER - 01/26/2023 9:47 AM EDT Thank you [...] lunch and review this dose with your Major Assembly Lineman. Repeat EKG with Major Assembly Lineman to monitor your QTc interval and your risk for cardiac arrhythmia. Cognitively healthy lifestyle. See the section below Ways to keep your brain healthy If cognitive symptoms/concerns worsen request Neuropsychological testing with Stacia Garcias through Bill Woods PA-C or Dr. Kinsey and consider re-evaluation here at [facility]. If you need to cancel/reschedule appointments please call [phone]. If you need to reach our office for any reason prior to your next visit, please contact us through [employer] or call [phone]. Armen Simmons RN-MSN, LARD MIXER Psychiatric Mental Health Nurse Practitioner [facility] Ways to keep your brain healthy: [...] benefit for memory. documented in this encounter [facility] 01-26-2023 Nurse Note Elo Gray is a 67 year old year old right handed woman Accompanied by: patient. 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 See what's going on with my brain. Vital Signs: BP 138/82 Pulse (!) 58 Wt 66.2 kg (146 lb) LMP 02/22/2000 (Approximate) BMI 26.70 kg/m documented in this encounter [facility] 01-26-2023 History of Present illness Narrative Reason for Consult: Cognitive changes (On Aricept 20 mg daily) I had the pleasure of seeing this 67 year old year old [facility]. The patient is referred by Bill Coburn [facility] [id number] Patient is accompanied by and information obtained from patient and available records in the system. Background and History of Present Illness: Patient has a PMHx of MS since 1998 (established with referring providers, Dr. Kinsey and Bill Woods PA-C at the [facility]), BRYAN, cardiomyopathy, CHF, A-fib (Eliquis), COPD, DM2, HLD, HTN, TN (2015), CAD s/p stents in 03/2016, RLS, Smoker, Anxiety and Depression (Cymbalta 30 mg BID and Seroquel 50 mg qHS). CC: She reports she has confusion, not Alzheimer's or dementia. She notes that when she does not take 20 mg Aricept she feels the confusion comes back. She has been prescribed 20 mg Aricept for past 6 years but when living in a [facility] previously the [facility] provider would not prescribe it due to being a high dose. In the mean time Bill Woods PA-C is prescribing but asked for [facility] provider input on her cognitive abilities per patient and Aricept dose. She reports positive response to Aricept at 20 mg dose, ie. Increased energy and alertness, less confusion. She reports cardiology is aware of her Aricept use and [facility], follows up with them this [...] twice previously but these were done in [place], last in 2001. She previously used to be able to take computers apart and put them back together but can no longer. She went through period of isolation and had suicide attempt (2018) grieving after spouse in 2015. She's been more active and attending senior center which has been helpful for her mental health. She also has a psychiatric provider in ([place]) Dr. Aubree Sultana also goes to counseling as of two months ago. Family History of Dementia: Mother had Bipolar Disorder and Mild Dementia was on Aricept Has a CT scan or MRI of the brain been done? Yes (MRI Brain, 08/22/22) Social History: Marital Status: 7 years Housing: [place] in double wide mobile home with her adopted son (supportive). Moved in with patient after spouse in 2016 Agencies involved: MS Society, [place] [employer] on Aging, [facility] the [facility]. 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 Stopped working in 2000, On disability since 2010 Education level: 14 DP health Yes, on file in EMR DPOA finance None Guardian NA Fawad Simmons, CHERI.LARD MIXER I have personally reviewed and verified the [...] 2 tablets by mouth once daily. Insulin Kendalia, Disposable, (BD ULTRAFINE III MINI PEN) 31 [...] SYSTEMS: Weight change/Appetite: no issues reported Hearing: [place], partially corrected by hearing aids Vision: recent [...] Current and previous president and president during [place] scandal: Yes Aware of 01/05/2001, date of elizabeth [place]: yes Parable interpretation: Good TSH (mIU/L) Date [...] by greater than or equal to 2mm). Film Maker: STEPHANIE Transcribe Date/Time: Aug 22 2022 12:16P Dictated [...] lunch and review this dose with your Major Assembly Lineman. Repeat EKG with Major Assembly Lineman to monitor your QTc interval and your risk for cardiac arrhythmia. Cognitively healthy lifestyle. See the section below Ways to keep your brain healthy If cognitive symptoms/concerns worsen request Neuropsychological testing with Staica Garcias through Bill Woods PA-C or Dr. Kinsey and consider re-evaluation here at [facility]. I spent a total of 75 minutes on the date of service which included preparing to see the patient, [id number] patient care, performing a medically appropriate examination, completing clinical documentation, and on counseling/ eductaing the patient and the family. Armen Simmons RN-MSN, LARD MIXER Psychiatric Mental Health Nurse Practitioner [facility] January 26, 2023 documented in this encounter [facility] 01-23-2023 History of Present illness Narrative [...] W/COLLJ SPEC WHEN PFRMD 10/12/2014 [facility] [facility] W/COLLJ SPEC WHEN [...] Connie Bustamante MA acting as scribe for Vaishnavi Soria MD. January 23, 2023 4:42 PM. I agree with the Chief Complaint, ROS, and Past Histories independently gathered by the clinical practice support specialist and the remaining scribed note accurately describes my personal service to the patient. Vaishnavi Soria MD Medical Decision Making: Problems: Low: Acute, uncomplicated illness or injury Risk: Moderate: Drug management Medical Decision Making Level: 3 - Low documented in this encounter [facility] 01-20-2023 Miscellaneous Notes Phone call placed follow up appointment scheduled, 03/06/2023 at 3:00 PM. Tashia Painting LPN documented in this encounter [facility] 01-19-2023 Miscellaneous Notes Phone call placed rang, clicked, call returned rang busy. Contacting patient to scheduled follow up with Viridiana Solorio. Tashia Painting LPN documented in this encounter [facility] 01-19-2023 Instructions Cameron Sher Jr., MD - 01/19/2023 9:00 AM EDT Your most recent body mass index (BMI) that we have on record is 29.26 kg/m2. Obstructive sleep apnea (BRYAN) worsens with an increase in weight; reduction in weight may improve or resolve your BRYAN. If you are not already seeking treatment, there are resources available at the [facility] such as a nutrition consultation or referral to weight management programs at our [facility]. Please let us know if we can assist with a referral. documented in this encounter [facility] 01-19-2023 History of Present illness Narrative NEW PATIENT (CONSULT) HISTORY AND PHYSICAL EXAM FIRST EVAL IN [facility] OVER 3 YEARS PRIMARY CARE PHYSICIAN: AUBREE [...] for which patient is followed at the [facility] as well as BRYAN diagnosed in 2017 at [facility] with study showing AHI of 27 by CMS guidelines. PAP titration recommended CPAP at 14 cmH2O with EPR of 3 per review of records. Of note, pt also on Modafinil as Rx'd by the [facility].Pt appears to have had 30-40 pound weight loss since sleep studies above. Pt states had sleep study 8 months ago at [facility], and was placed on bilevel PAP [...] , son moved in with her, had TN, attempted suicide and has afib for which [...] PHQ-9 Score - 4 (None-Minimal Depression) - [place] Sleepiness Scale 01/11/2023 01/11/2023 01/15/2023 Score - [...] 2 tablets by mouth once daily. Insulin Kendalia, Disposable, (BD ULTRAFINE III MINI PEN) 31 [...] (HCC) Myocardial infarct, old 03/2016 Obesity Pancreatitis 1977 Renal insufficiency RLS (restless legs syndrome) Tobacco [...] BRYAN as confirmed on sleep study in 2016. However, weight loss since then and no [...] will send Rx to new local DME ([employer]) per pt request (pt also wanting [employer] [...] explained to pt risk of augmentation with terminologist use of high dose Requip. Defer future adjustments to dosing to PCP at this time. Note pt never had Fe studies and will order with next labs. If low, would recommend supplementation as likely contributing factor for RLS. 4. Hypersomnia due to medical condition - ICD9: 327.14, ICD10: G47.14 On Provigil through [facility]. Defer further adjustments to them. However, if BRYAN confirmed, would not recommend continuation of Provigil without PAP compliance. Cameron Sher MD I spent a total of 45+ minutes on the date of the service which included preparing to see the patient, [id number] patient care, completing clinical documentation, obtaining and/or [...] study not recommended) documented in this encounter [facility] 01-16-2023 Miscellaneous Notes Phone call placed to update patient's DME company for BiPAP machine, reported not currently using. Tashia Painting LPN documented in this encounter [facility] 01-15-2023 History of Present illness Narrative [...] 2023 12:01 PM documented in this encounter [facility] 01-15-2023 History of Present illness Narrative Physical Medicine and Rehabilitation New patient January 15, 2023 SUBJECTIVE HISTORY OF PRESENT ILLNESS: Elo Gray is a 67 year old woman evaluated for back pain Folliowing with pain management, Dr. Heather Davis Prior 3 low back (unclear dates, completed in [place], fusions) and 1 cervical surgeries (2016 in [place]) Previous MRI C/T spine and brain 08/22/22: [...] signal intensity and morphology. Cord T2 Plaque [place]: None New T2 Lesions: None Interval Cord [...] W/COLLJ SPEC WHEN PFRMD 10/12/2014 Colonoscopy inpt [facility] COLONOSCOPY FLX DX W/COLLJ SPEC WHEN [...] 2 tablets by mouth once daily. Insulin Kendalia, Disposable, (BD ULTRAFINE III MINI PEN) 31 [...] ROM: ROM Without Pain (-) JLUIS + fabricericks Data Review: [facility] records independently reviewed ASSESSMENT/PLAN 67 yo woman with PMH anxiety, depression, afib on eliquis, CHrEF 2/2 CM, colitis, COPD, DM, HPL, h/o GIB, HTN, h/o TN, obesity, pancreatitis, RLS, MS, cervical myelopathy, h/o [...] intentioned for use under this context. Meka eWbb MD. I spent a total of 55 minutes on the date of the service which included preparing to see the patient, [id number] patient care, completing clinical documentation, performing a medically appropriate examination, counseling and educating the patient/family/caregiver, and ordering medications, tests, or procedures. Consultation requested by JOHN Echavarria for an opinion regarding back pain. My final recommendations will be communicated back to the requesting physician by way of shared medical record or letter via US mail documented in this encounter [facility] 01-14-2023 History of Present illness Narrative [...] laboratory parameters, disease state markers and outcomes. Agriculturist Assessment Patient confirmed: Yes Med/dose confirmed: Yes Supplies needed: No supplies needed Estimated days supply on hand: 0 Copay amount: 0 Payment confirmed: Yes Delivery method: FedEx Signature required: No Delivery address: [address], [facility] [address] Delivery date: 01/22/23 Questions or concerns for the pharmacist?: No [facility] Specialty Pharmacy Visit Assessment - Neurology: Assessment to use: Refill Vaccination Assessment: Date of influenza vaccination reminder: 06/23/2022 Date of most recent vaccination assessment: 06/23/2022 Fatuma Vásquez documented in this encounter [facility] 01-14-2023 History of Present illness Narrative Images from the original note were not included. [facility] FOLLOWUP/ESTABLISHED PATIENT VISIT PRINCIPAL NEUROLOGIC DIAGNOSIS: Multiple sclerosis DISEASE SUMMARY Date of onset: 12/1998 Date of diagnosis of MS: 1998 Disease course at onset: Progressive with relapses Current disease course: Progressive with relapses Previous disease therapies: Glatiramer acetate 2002, 0030-8924, 0625-0882 Fingolimod 07/2014-04/2016 (switched because of heart issues [...] in Neurology Office Visit from 11/14/2021 in [facility] Upper Extremity Domain T Score 41 43 [...] in Neurology Office Visit from 11/14/2021 in [facility] Sleep Domain T Score 61 63 63.25 Fatigue Domain T Score 54 60 56.18 Anxiety Domain T Score 49 50 54.39 Depression Domain T Score 45 46 52.59 Stigma Domain T Score 59 63 59.93 Emotional Behavior Dyscontrol T Score -- -- -- *NeuroQoL is a multi-domain patient-reported quality of life questionnaire. PHQ-9 Flowsheet Row Office Visit from 01/14/2023 in Neurology Office Visit from 07/01/2017 in [facility] PHQ-9 Score 4 22 *PHQ-9 is a questionnaire for depressive symptoms, with scores 0-4 indicating none, 5-9 mild, 10-14 moderate, 15-19 moderately severe, and 20-27 severe symptoms. PROMIS-10 Flowsheet Row Office Visit from 12/03/2022 in Neurology Office Visit from 07/01/2017 in [facility] Global Physical Health T Score 37.4 26.7 [...] W/COLLJ SPEC WHEN PFRMD 10/12/2014 Colonoscopy inpt [facility] COLONOSCOPY FLX DX W/COLLJ SPEC WHEN [...] old female with Multiple Sclerosis. Patient in [facility] for DMT. Reports good compliance. Will [...] assess response on an ongoing basis. Continue [facility] Labs today MRI annually Consult dermatology Specialists as directed Patient Health Education Discussed at Visit: Aerobic exercise, Emotional Health/Wellness, and Risks and Common side effects of MS medications Follow-up: as planned I spent a total of 30 minutes on the date of the service which included preparing to see the patient, qidt-oh-mcan patient care, completing clinical documentation, obtaining and/or reviewing separately obtained history, performing a medically appropriate examination, counseling and educating the patient/family/caregiver, ordering medications, tests, or procedures, and communicating results to the patient/family/caregiver. Bill Woods PA-C The chart was reviewed for possible participation in the following studies:None documented in this encounter [facility] 01-13-2023 Miscellaneous Notes Returned call to patient, verified name and . Patient states she is scheduled to see her eye ing Dr John Claudio next week, eye doctor. They would like Orbital MRI results to them. , phone [phone]. Faxed with confirmation. Patient would like to note she had a difficulty time completing the Orbital MRI at the [facility] location. She indicates she was not positioned [...] Maribell Cunha RN documented in this encounter [facility] 01-07-2023 History of Present illness Narrative [...] TIME: 2:22 PM documented in this encounter [facility] 12-22-2022 Miscellaneous Notes Returned call to patient, verified name and . Reviewed new date/time of MRI at [facility] location 9-14. She indicates she is willing [...] care team to update. Maribell Cunha RN Crystal Call Name of caller : Elo Gray Relationship to patient: Self Return call phone number : Reason for call : Returning call documented in this encounter [facility] 12-22-2022 Miscellaneous Notes Images from the [...] improved since last week. She will call [place] [facility] later today to try to move [...] Maribell Cunha RN documented in this encounter [facility] 12-19-2022 History of Present illness Narrative [...] laboratory parameters, disease state markers and outcomes. Agriculturist Assessment Patient confirmed: Yes Med/dose confirmed: Yes Supplies needed: No supplies needed Missed doses: No Estimated days supply on hand: 0 Next cycle/dose due: 12/29/22 Copay amount: 0 Payment confirmed: Yes Delivery method: FedEx Signature required: Required (, Medicaid, patient preference) Delivery address: [address]; [place], [place] Delivery date: 12/23/22 Questions or concerns for the pharmacist?: No [facility] Specialty Pharmacy Visit Assessment - Neurology: Assessment to use: Refill Vaccination Assessment: Date of influenza vaccination reminder: 06/23/2022 Date of most recent vaccination assessment: 06/23/2022 Deja Hendrix ([employer]) documented in this encounter [facility] 12-18-2022 Miscellaneous Notes Spoke with pt. [...] and implanted by a Sleep Surgeon. Dr. hSer is not a surgeon. Please contact patient and assist in re-scheduling with a Sleep Surgeon. Thank you. FRANCHESKA Parham documented in this encounter [facility] 12-15-2022 Miscellaneous Notes Called [facility] , option 1 for Filipino. Spoke with Kellee, she indicates [employer] is secondary and to call Medicare at [phone] to obtain PA under Medicare Part D plan. Called patient, she states her Medicare Number is [id number]. She states she received a message from [employer] that her Modafinil is approved and ready for pickup. She will call office for any other questions or needs. Maribell Cunha RN Received call from patient. She attempted to pickup refill of Modafinil but the pharmacy indicated it required Prior Authorization. PA marked urgent/expedited submitted via Covermymeds. Elo Gray (Sims: [id number]) Modafinil 200MG tablets Status: Sent To Plan Created: 2022 Sent: 2022 Maribell Cunha RN documented in this encounter [facility] 12-10-2022 Miscellaneous Notes Patient returned call to office. Verified name and . Notified of need for MRI Orbits. She verbalized understanding and is aware a laundry press operator from [place] should be contacting her soon to help [...] advise. If patient needs second appointment with [facility] rescheduled, she needs it to be on the same day as the visit with Fawad Simmons CNP due to transportation needs. Maribell Cunha RN Called patient, no answer. Message left indicating below and that laundry press operator will be reaching out to help schedule [...] Subject: Eye Exam Report Report scanned into Epic. 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 yes Jennifer Mas RN documented in this encounter [facility] 12-10-2022 History of Present illness Narrative [facility] Pain Management Department Office Visit - [...] atrial fibrillation (Eliquis), MS, COPD, CHF, and TN who presents with chronic left knee pain (primarily medial), worse recently since she began to walk and aim to become more active. Continues to smoke approximately a ppd. No recent imaging, so xrays of both knees were ordered. Ms. Gray will discuss Eliquis cessation for procedure with her potato spotter to see if OK. If so, d/c [...] of both femurs (G35) MS (multiple sclerosis) ([facility]) (F17.200) Current smoker (Z79.01) Current use of [facility]p anticoagulation PLAN: - left genicular nerve blocks next available (or knee injection after xrays and discussion) - will stop Eliquis per potato spotter - xrays knees bilaterally - PT script [...] Last Percocet - from [facility] #30 5/3/23 and 09/11/22 Had been regular #30 scripts before August (#60 per month in 2 divided scripts, each written as bid) Procedures (%relief, duration): 11/11/22 - left genicular nerve blocks Surgery: S/p ablation on neck x 2 (C7-T1) Fusion C3-6 2015 Lower back sx L4-S1 (discectomy) 1982 Left [...] 2 tablets by mouth once daily. Insulin Kendalia, Disposable, (BD ULTRAFINE III MINI PEN) 31 [...] W/COLLJ SPEC WHEN PFRMD 10/12/2014 Colonoscopy inpt [facility] COLONOSCOPY FLX DX W/COLLJ SPEC WHEN [...] the lateral compartment of the left knee. Film Maker: STEPHANIE Transcribe Date/Time: Nov 04 2022 3:05P [...] (primary encounter diagnosis) (G35) MS (multiple sclerosis) ([facility]) (I48.0) Paroxysmal A-fib ([facility]) (F17.200) Tobacco dependence (Z68.28) BMI 28.0-28.9,adult (Z98.890) [...] 90 days. RTC prn with KK. FTFT: [phone] I counseled the patient on the importance [...] your PCP/referring physician. documented in this encounter [facility] 12-04-2022 History of Present illness Narrative Faxed over orders as directed to [facility] at fax #[phone]. The . documented in this encounter [facility] 12-03-2022 History of Present illness Narrative Images from the original note were not included. [facility] FOLLOWUP/ESTABLISHED PATIENT VISIT PRINCIPAL NEUROLOGIC DIAGNOSIS: Multiple sclerosis DISEASE SUMMARY Date of onset: 12/1998 Date of diagnosis of MS: 1998 Disease course at onset: Progressive with relapses Current disease course: Progressive with relapses Previous disease therapies: Glatiramer acetate 2002, 9714-2987, 8569-0967 Fingolimod 07/2014-04/2016 (switched because of heart issues [...] drooling, word finding difficulty.) - seen by [place] urgent visit 11/21. Rx Medrol dose janee [...] to follow with neurologist Dr. Kinsey at [facility]. Getting hearing aids next week Also getting new glasses Seeing Heather Davis MD for pain management Sleep apnea - issues with Bipap. Can't wear the nasal pillow she has Lift added to porch. Working with MS society for modifications to bathroom and cooling products SUBJECTIVE & REVIEW OF SYSTEMS: Neuro-QoL Functions (higher=better functioning) Flowsheet Row Office Visit from 09/03/2022 in Neurology Office Visit from 11/14/2021 in [facility] Upper Extremity Domain T Score 43 33.84 [...] in Neurology Office Visit from 11/14/2021 in [facility] Sleep Domain T Score 63 63.25 Fatigue Domain T Score 60 56.18 Anxiety Domain T Score 50 54.39 Depression Domain T Score 46 52.59 Stigma Domain T Score 63 59.93 Emotional Behavior Dyscontrol T Score -- -- *NeuroQoL is a multi-domain patient-reported quality of life questionnaire. PHQ-9 Flowsheet Row Office Visit from 07/01/2017 in [facility] PHQ-9 Score 22 *PHQ-9 is a questionnaire for depressive symptoms, with scores 0-4 indicating none, 5-9 mild, 10-14 moderate, 15-19 moderately severe, and 20-27 severe symptoms. PROMIS-10 Flowsheet Row Office Visit from 12/03/2022 in Neurology Office Visit from 07/01/2017 in [facility] Global Physical Health T Score 37.4 26.7 [...] W/COLLJ SPEC WHEN PFRMD 10/12/2014 Colonoscopy inpt [facility] COLONOSCOPY FLX DX W/COLLJ SPEC WHEN [...] 5 Biceps 5 5 Triceps 5 5 Kindergarten Instructional Assistant 5 5 Lower extremity: Iliopsoas 4+ 4 [...] for speech concerns (dysarthria) and brain fog. [facility] in [place] (phone: [phone]) - PT receiving homecare through them currently [...] MS medications Follow-up: In 2 months at [facility], or Virtual Visit with [facility] APC I spent a total of 30 minutes on the date of the service which included preparing to see the patient, [id number]-zi-[id number] patient care, completing clinical documentation, obtaining and/or reviewing separately obtained history, performing a medically appropriate examination, counseling and educating the patient/family/caregiver, ordering medications, tests, or procedures, independently interpreting results (not separately reported), and communicating results to the patient/family/caregiver. Bill Woods PA-C The chart was reviewed for possible participation in the following studies:None documented in this encounter [facility] 11-24-2022 Miscellaneous Notes Called patient to [...] Encounter reviewed; agree with plan. Lisa Morataya APRN.CNP Patient called office, verified name and . [...] home right now. She indicates her home SCHOOL TREASURER Aubree Laura is coming to see her [...] to seek emergency care. Called Aubree Laura SCHOOL TREASURER scheduled to see patient this morning at [...] Maribell Cunha RN documented in this encounter [facility] 11-24-2022 History of Present illness Narrative [...] laboratory parameters, disease state markers and outcomes. Agriculturist Assessment Patient confirmed: Yes Med/dose confirmed: Yes Supplies needed: No supplies needed Missed doses: No Estimated days supply on hand: 0 Next cycle/dose due: 12/01/22 Copay amount: 0 Delivery method: FedEx Signature required: No Delivery address: [address] [place] [address] [address] [id number] Delivery date: 11/28/22 Questions or concerns for the pharmacist?: No [facility] Specialty Pharmacy Visit Assessment - Neurology: Assessment to use: Refill Vaccination Assessment: Date of influenza vaccination reminder: 06/23/2022 Date of most recent vaccination assessment: 06/23/2022 Valerie Hendricks CPhT [facility], Neurology, Cardiology, & Infectious Disease P: [phone] F: [phone] documented in this encounter [facility] 11-21-2022 Miscellaneous Notes Referral placed to [facility] for Cooling Vest per request from Lisa Morataya CNP who had visit with patient today. Maribell Cunha RN documented in this encounter [facility] 11-21-2022 History of Present illness Narrative [facility] OCT OU At best attempt. Per Pt she is having an MS flair up. Can not sit still. Performed by Teri Rojas MA on November 21, 2022 11:03 AM documented in this encounter [facility] 11-20-2022 Miscellaneous Notes Patient returned call to office. She states on Thursday she noticed she wasn't feeling well. She developed pain in joints of bilateral shoulders, felt a little off balance, had runny nose, and felt like it was hard to focus her vision moving from light room to dark room. She called her [facility] Dr González at [facility] ([phone]) and they indicated they thought it was [...] with Lisa Morataya CNP. Maribell Cunha RN [place] Call Name of caller : Elo Relationship to patient: Self Return call phone number : [phone] Reason for call : Other : Brief description of concern : Having flare up .... Speech is slurred at times, it is affecting her walking, eyes are not working right at times. Trans to [facility] to [facility] with any provider. documented in this encounter [facility] 11-04-2022 Nurse Note Patient accompanied by: self What do/did you do for work? 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 yes documented in this encounter [facility] 11-04-2022 History of Present illness Narrative [facility] Pain Management Department Office Visit Elo CharitoCharan Isabelmary beth is Unique Woods PA-C. Unaccompanied Room: 21 Chief Complaint: chronic pain, back pain, knee pain, neck pain HISTORY OF PRESENT ILLNESS Elo Gray presents to [facility] for the evaluation [...] was very sedentary) - started going to senior center; lift next to her porch (can avoid porch stairs and can go outside) and started to walk - hurts her when she walks a lot Upright bicycle at home - bothers her knee Patient goal(s) for visit: gel implants - establish herself with me and start a discussion about various pain problems and get suggestions for improvement 2015 - 27 years Has MS - pretty well-controlled Remitting and relapsing IM Kesimpta q month Denies bladder/bowel incontinence, progressive neurologic deficits, fever/chills, or other concerning red flag symptoms or signs. Review of Systems:The remainder of the ROS was negative. 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 Continues to smoke approximately a ppd. No recent imaging, so xrays of both knees were ordered. Ms. Gray will discuss Eliquis cessation for procedure with her potato spotter to see if OK. If so, d/c [...] (F17.200) Current smoker (Z79.01) Current use of terminologist anticoagulation PLAN: - left genicular nerve blocks next available (or knee injection after xrays and discussion) - will stop Eliquis per potato spotter - xrays knees bilaterally - PT script [...] your PCP/referring physician. documented in this encounter [facility] 10-13-2022 Miscellaneous Notes Sent to scanning lab and UA from [facility]. Radha Morillo MA documented in this encounter [facility] 09-03-2022 History of Present illness Narrative Images from the original note were not included. [facility] FOR MULTIPLE SCLEROSIS FOLLOWUP/ESTABLISHED PATIENT VISIT PRINCIPAL NEUROLOGIC DIAGNOSIS: Multiple sclerosis DISEASE SUMMARY Date of onset: 12/1998 Date of diagnosis of MS: 1998 Disease course at onset: Progressive with relapses Current disease course: Progressive with relapses Previous disease therapies: Glatiramer acetate 2002, 5282-3903, 6716-9890 Fingolimod 07/2014-04/2016 (switched because of heart issues [...] sugar cranberry juice Has been going to [facility] 3 times per week recently SUBJECTIVE & REVIEW OF SYSTEMS: Neuro-QoL Functions (higher=better functioning) Flowsheet Row Office Visit from 09/03/2022 in Neurology Office Visit from 11/14/2021 in [facility] Upper Extremity Domain T Score 43 33.84 [...] in Neurology Office Visit from 11/14/2021 in [facility] Sleep Domain T Score 63 63.25 Fatigue Domain T Score 60 56.18 Anxiety Domain T Score 50 54.39 Depression Domain T Score 46 52.59 Stigma Domain T Score 63 59.93 Emotional Behavior Dyscontrol T Score -- -- *NeuroQoL is a multi-domain patient-reported quality of life questionnaire. PHQ-9 Flowsheet Row Office Visit from 07/01/2017 in [facility] PHQ-9 Score 22 *PHQ-9 is a questionnaire for depressive symptoms, with scores 0-4 indicating none, 5-9 mild, 10-14 moderate, 15-19 moderately severe, and 20-27 severe symptoms. PROMIS-10 Flowsheet Row Office Visit from 07/01/2017 in [facility] Global Physical Health T Score 26.7 Global [...] W/COLLJ SPEC WHEN PFRMD 10/12/14 Colonoscopy inpt [facility] COLONOSCOPY FLX DX W/COLLJ SPEC WHEN [...] D supplementation Follow-up: In 6 months at [facility] I spent a total of 30 minutes on the date of the service which included preparing to see the patient, [id number] patient care, completing clinical documentation, obtaining and/or reviewing separately obtained history, counseling and educating the patient/family/caregiver, ordering medications, tests, or procedures, and communicating results to the patient/family/caregiver. Bill Woods PA-C The chart was reviewed for possible participation in the following studies:None documented in this encounter [facility] 09-01-2022 Miscellaneous Notes Received message from [...] her psychiatrist Dr Juan Sultana in the [facility] to determine if the interaction between Seroquel. [...] Maribell Cunha RN documented in this encounter [facility] 08-28-2022 Miscellaneous Notes [facility] that message below has been relayed to patient. Maribell Cunha RN Please let patient know Dr. Kinsey and I reviewed MRI. Recommend spine center eval based on T-spine MRI degenerative findings. MRI looked stable from MS standpoint (no new lesions). Bill Woods PA-C documented in this encounter [facility] 08-22-2022 History of Present illness Narrative [...] Spine: Cervical spine and Thoracic spine SIGNATURE: Selene Reyez RT(R) PATIENT NAME: Elo Gray DATE: August 22, 2022 TIME: 9:47 AM documented in this encounter [facility] 08-07-2022 Miscellaneous Notes . documented in this encounter [facility] 08-06-2022 Instructions Rosa Flores APRN.CNP - [...] 1 tab daily documented in this encounter [facility] 08-06-2022 History of Present illness Narrative [...] in 20 years Sts was in a [facility] for [facility] 6 weeks 'Cracked tailbone' - episodes of syncopy Physical therapy for 6 weeks Feeling better now COVID infection July 08 - day quarantined at [facility] [place] mild cold symptoms and bone aches Hx of MS Hx of remote pancreatitis (40 yrs ago) Sts dx was by [facility], she states im not that fond or [...] PT, still following exercises from NH/PT and [facility] 3 times per week CURRENT DM MEDS [...] W/COLLJ SPEC WHEN PFRMD 10/12/14 Colonoscopy inpt [facility] COLONOSCOPY FLX DX W/COLLJ SPEC WHEN [...] no masses, lesions, tenderness or abnormalities Eyes: NICOLASA Neck: thyroid symmetric to inspection Acanthosis: none [...] Rosa Flores CNP documented in this encounter [facility] 07-30-2022 History of Present illness Narrative Images from the original note were not included. [facility] MULTIPLE SCLEROSIS FOLLOWUP/ESTABLISHED PATIENT VISIT PRINCIPAL NEUROLOGIC DIAGNOSIS: Multiple sclerosis DISEASE SUMMARY Date of onset: 12/1998 Date of diagnosis of MS: 1998 Disease course at onset: Progressive with relapses Current disease course: Progressive with relapses Previous disease therapies: Glatiramer acetate 2002, 3663-1623, 2742-8284 Fingolimod 07/2014-04/2016 (switched because of heart issues [...] symptoms have improved - follows routinely with potato spotter A1C 7.6 a couple weeks ago. 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 Tested positive for Covid in the [facility] - July 08 - was supposed to go home on [facility] day but stayed longer due to [...] glasses Will be going back to the [facility] on Thursday Has PT once per week now SUBJECTIVE & REVIEW OF SYSTEMS: Neuro-QoL Functions (higher=better functioning) Flowsheet [facility] Office Visit from 11/14/2021 in [facility] Upper Extremity Domain T Score 33.84 Lower Extremity Domain T Score 38.83 Cognitive Function Domain T Score 39.53 Positive Affect Well Being T Score -- Ability To Participate In Social Roles T Score 42.88 Satisfaction With Social Roles T Score 42.46 Neuro-QoL Symptoms (higher=worse symptoms) Flowsheet [facility] Office Visit from 11/14/2021 in [facility] Sleep Domain T Score 63.25 Fatigue Domain T Score 56.18 Anxiety Domain T Score 54.39 Depression Domain T Score 52.59 Stigma Domain T Score 59.93 Emotional Behavior Dyscontrol T Score -- *NeuroQoL is a multi-domain patient-reported quality of life questionnaire. PHQ-9 Flowsheet [facility] Office Visit from 07/01/2017 in [facility] PHQ-9 Score 22 *PHQ-9 is a questionnaire for depressive symptoms, with scores 0-4 indicating none, 5-9 mild, 10-14 moderate, 15-19 moderately severe, and 20-27 severe symptoms. PROMIS-10 Flowsheet [facility] Office Visit from 07/01/2017 in [facility] Global Physical Health T Score 26.7 Global [...] W/COLLJ SPEC WHEN PFRMD 10/12/14 Colonoscopy inpt [facility] COLONOSCOPY FLX DX W/COLLJ SPEC WHEN PFRMD [...] 5 Biceps 5 5 Triceps 5 5 Kindergarten Instructional Assistant 5 5 Lower extremity: Iliopsoas 4+ 4 [...] Brain Enhancing Lesions None 02/11/2021 ASSESSMENT/PLAN: Elo Grya is a 66 year old female with [...] which included preparing to see the patient, [id number] patient care, completing clinical documentation, obtaining and/or reviewing separately obtained history, performing a medically appropriate examination, counseling and educating the patient/family/caregiver, ordering medications, tests, or procedures, and communicating results to the patient/family/caregiver. Bill Woods PA-C The chart was reviewed for possible participation in the following studies:None documented in this encounter [facility] 07-29-2022 Miscellaneous Notes Called patient, notified of below. Provided scheduling phone number for Endocrine at [facility]. Patient is rescheduled for MRIs 08-22-22. She [...] Bill Woods PA-C documented in this encounter [facility] 07-23-2022 Miscellaneous Notes Called patient, notified [...] is able to submit specimen to local [facility] if needed. Patient states she was [...] Maribell Cunha RN documented in this encounter [facility] 07-23-2022 Miscellaneous Notes Duplicate. See other MyChart dated 07-19-22 for documentation/response. Maribell Cunha RN documented in this encounter [facility] 07-15-2022 History of Present illness Narrative [facility] Refill Assessment Medication(s): [place] Patient's current medication list and adherence status [...] laboratory parameters, disease state markers and outcomes. Agriculturist Assessment Patient confirmed: Yes Med/dose confirmed: Yes Supplies needed: No supplies needed Missed doses: No Estimated days supply on hand: 0 Next cycle/dose due: 07/27/22 Copay amount: 0 Delivery method: FedEx Signature required: No Delivery address: [address] [place] [address] [address] [place] [id number] Delivery date: 07/23/22 Questions or concerns for the pharmacist?: No [facility] Visit Assessment - Neurology: Assessment to use: Refill Vaccination Assessment: Date of influenza vaccination reminder: 06/23/2022 Date of most recent vaccination assessment: 06/23/2022 Valerie Hendricks CPhT [facility] P: [phone] F: [phone] documented in this encounter [facility] 05-23-2022 History of Present illness Narrative Requested by: Other - CoverMyMeds (Sims: [id number])2 Medication Requested: Modafinil 200 mg. Tablets Insurance Name: Insurance PA phone #: Patient ID#: APPROVED from 05/23/2022 thru 11/20/2022, [id number]. documented in this encounter [facility] 03-05-2022 History of Present illness Narrative [...] laboratory parameters, disease state markers and outcomes. Agriculturist Assessment Patient confirmed: Yes Med/dose confirmed: Yes Supplies needed: No supplies needed Missed doses: No Estimated days supply on hand: 1 Next cycle/dose due: 03/06/22 (Per patient, 03/06/22 is her 3rd dose of the loading dose) Copay amount: 0 Payment confirmed: Yes Delivery method: FedEx Signature required: No [facility] [address] Delivery date: 03/11/22 Questions or concerns for the pharmacist?: No [facility] Visit Assessment - Neurology: Assessment to use: Refill Vaccination Assessment: Date of influenza vaccination reminder: 03/29/2021 Date of most recent vaccination assessment: 03/29/2021 Fatuma Vásquez (Patient Advocate) documented in this encounter [facility] 02-11-2022 History of Present illness Narrative Images from the original note were not included. [facility] MULTIPLE SCLEROSIS FOLLOWUP/ESTABLISHED PATIENT VISIT PRINCIPAL NEUROLOGIC DIAGNOSIS: Multiple sclerosis DISEASE SUMMARY Date of onset: 12/1998 Date of diagnosis of MS: 1998 Disease course at onset: Progressive with relapses Current disease course: Progressive with relapses Previous disease therapies: Glatiramer acetate 2002, 1100-0660, 1271-1812 Fingolimod 07/2014-04/2016 (switched because of heart issues [...] patient reports overall feeling worse. Fall at [facility] - BP low - admitted for 4 days - then sent to inpatient rehab for PT (November 22-December 20) - also had a UTI then. Still seeing urology locally Currently has a UTI - ended up in ED on Thursday - being treated for it currently - on Keflex since Thursday night. Symptoms improved - has 3 days left Dizzy, lightheaded, wobbly, confused [place] hard to walk Eyes hard to focus Going to have cataract surgery in March SUBJECTIVE & REVIEW OF SYSTEMS: Neuro-QoL Functions (higher=better functioning) Flowsheet Row Office Visit from 11/14/2021 in [facility] Upper Extremity Domain T Score 33.84 Lower Extremity Domain T Score 38.83 Cognitive Function Domain T Score 39.53 Positive Affect Well Being T Score -- Ability To Participate In Social Roles T Score 42.88 Satisfaction With Social Roles T Score 42.46 Neuro-QoL Symptoms (higher=worse symptoms) Flowsheet Row Office Visit from 11/14/2021 in [facility] Sleep Domain T Score 63.25 Fatigue Domain T Score 56.18 Anxiety Domain T Score 54.39 Depression Domain T Score 52.59 Stigma Domain T Score 59.93 Emotional Behavior Dyscontrol T Score -- *NeuroQoL is a multi-domain patient-reported quality of life questionnaire. PHQ-9 Flowsheet Row Office Visit from 07/01/2017 in [facility] PHQ-9 Score 22 *PHQ-9 is a questionnaire for depressive symptoms, with scores 0-4 indicating none, 5-9 mild, 10-14 moderate, 15-19 moderately severe, and 20-27 severe symptoms. PROMIS-10 Flowsheet Row Office Visit from 07/01/2017 in [facility] Global Physical Health T Score 26.7 Global [...] W/COLLJ SPEC WHEN PFRMD 10/12/14 Colonoscopy inpt [facility] COLONOSCOPY FLX DX W/COLLJ SPEC WHEN [...] 5 Biceps 5 5 Triceps 5 5 Kindergarten Instructional Assistant 5 5 Lower extremity: Iliopsoas 4+ 4 [...] MS medications Follow-up: In 3 months at [facility] I spent a total of 25 minutes on the date of the service which included preparing to see the patient, [id number] patient care, completing clinical documentation, obtaining and/or reviewing separately obtained history, performing a medically appropriate examination, counseling and educating the patient/family/caregiver, ordering medications, tests, or procedures, and communicating results to the patient/family/caregiver. Bill Woods PA-C The chart was reviewed for possible participation in the following studies:None documented in this encounter [facility] 11-08-2021 History of Present illness Narrative [facility] Discontinuation Assessment: Disease group: Neurology Medication: AUBAGIO 14 MG TABLET Discontinue reason: Changing therapy Patient is switching from Aubagio to Kesimpta. Has appt scheduled on 11/19/21 for first dose observation of Kesimpta. Sophia Taylor PharmD Clinical Pharmacist, Biologics, Neurology, and Hepatology [facility] ; Pool: [facility] Pool #: [id number] UPDATE 11/08/21 12:51PM: THIS SHIPMENT IS NOT BEING SENT OUT. Per Dr. Kinsey, patient should stop Aubagio at this time in anticipation of having her first dose of Kesimpta on 11/19/21. Sophia Taylor PharmD Clinical Pharmacist, Biologics, Neurology, and Hepatology [facility] ; Pool: [facility] Pool #: [id number] [facility] Refill Assessment Medication(s): Aubagio Therapy continues to be appropriate for disease, patient response, and medical condition. Verification of therapeutic benefit and effectiveness with current therapy. Adverse events, barriers in adherence, and side effects assessed and addressed. Will proceed with refill with no changes. [facility] Visit Assessment - Neurology: Assessment to use: Refill Non-Clinical Assessment: Patient confirmed: Yes Med/dose confirmed: Yes Supplies needed: N/A Missed doses: No Estimated days supply on hand: 2 Next cycle/dose due: 11/09/2021 Copay amount: 0 Payment confirmed: Yes Address confirmed: Yes Delivery method: FedEx Delivery address: [address] [place], [place] - fedex to knock to let pt know where pkg is Delivery date: 11/11/2021 Patient has questions: No Additional questions, comments, concerns: Pt indicated she has not yet started the kesimpta, appt isn't until 11/19 & needs to continue with Aubagio until then Vaccination Assessment: Date of influenza vaccination reminder: 03/29/2021 Date of most recent vaccination assessment: 03/29/2021 Deja Hendrix (Patient Advocate) documented in this encounter [facility] 11-06-2021 History of Present illness Narrative [...] ChikaD Clinical Pharmacist, Biologics, Neurology, and Hepatology [facility] ; Pool: [facility] Pool #: [id number] documented in this encounter [facility] 10-28-2021 History of Past i llness Narrative Problem Noted Date Resolved Date Hypertensive emergency 10/28/2021 Right flank pain 10/28/2021 10/31/2021 RUQ pain 10/28/2021 10/31/2021 Chest pain 10/24/2021 10/31/2021 Gastrointestinal hemorrhage with melena 10/23/19 22 10/26/2021 Diarrhea 02/28/2015 02/28/2015 GI bleed 10/31/2021 Atrial fibrillation 10/24/2021 documented as of this encounter (statuses as of 11/06/2021) [facility] History of Past illness Narrative* Problem Noted Date Resolved Date Hypertensive emergency 10/28/2021 Right flank pain 10/28/2021 10/31/2021 RUQ pain 10/28/2021 10/31/2021 Chest pain 10/24/2021 10/31/2021 Gastrointestinal hemorrhage with melena 10/23/19 22 10/26/2021 Diarrhea 02/28/2015 02/28/2015 GI bleed 10/31/2021 Atrial fibrillation 10/24/2021 documented as of this encounter (statuses as of 11/08/2021) [facility] History of Past illness Narrative* Problem Noted Date Resolved Date Hypertensive emergency 10/28/2021 2 Right flank pain 10/28/2021 10/31/2021 RUQ pain 10/28/2021 10/31/2021 Chest pain 10/24/2021 10/31/2021 Gastrointestinal hemorrhage with melena 10/23/19 22 10/26/2021 Diarrhea 02/28/2015 02/28/2015 GI bleed 10/31/2021 Atrial fibrillation 10/24/2021 documented as of this encounter (statuses as of 02/11/2022) [facility] History of Past illness Narrative* Problem Noted Date Resolved Date Hypertensive emergency 10/28/2021 2 Right flank pain 10/28/2021 10/31/2021 RUQ pain 10/28/2021 10/31/2021 Chest pain 10/24/2021 10/31/2021 Gastrointestinal hemorrhage with melena 10/23/19 22 10/26/2021 Diarrhea 02/28/2015 02/28/2015 GI bleed 10/31/2021 Atrial fibrillation 10/24/2021 documented as of this encounter (statuses as of 03/05/2022) [facility] History of Past illness Narrative* Problem Noted Date Resolved Date Hypertensive emergency 10/28/2021 Right flank pain 10/28/2021 10/31/2021 RUQ pain 10/28/2021 10/31/2021 Chest pain 10/24/2021 10/31/2021 Gastrointestinal hemorrhage with melena 10/23/19 22 10/26/2021 Diarrhea 02/28/2015 02/28/2015 GI bleed 10/31/2021 Atrial fibrillation 10/24/2021 documented as of this encounter (statuses as of 06/26/2022) [facility] History of Past illness Narrative* Problem Noted Date Resolved Date Hypertensive emergency 10/28/2021 Right flank pain 10/28/2021 10/31/2021 RUQ pain 10/28/2021 10/31/2021 Chest pain 10/24/2021 10/31/2021 Gastrointestinal hemorrhage with melena 10/23/19 22 10/26/2021 Diarrhea 02/28/2015 02/28/2015 GI bleed 10/31/2021 Atrial fibrillation 10/24/2021 documented as of this encounter (statuses as of 06/30/2022) [facility] History of Past illness Narrative* Problem Noted Date Resolved Date Hypertensive emergency 10/28/2021 Right flank pain 10/28/2021 10/31/2021 RUQ pain 10/28/2021 10/31/2021 Chest pain 10/24/2021 10/31/2021 Gastrointestinal hemorrhage with melena 10/23/19 22 10/26/2021 Diarrhea 02/28/2015 02/28/2015 GI bleed 10/31/2021 Atrial fibrillation 10/24/2021 documented as of this encounter (statuses as of 07/15/2022) [facility] History of Past illness Narrative* Problem Noted Date Resolved Date Hypertensive emergency 10/28/2021 Right flank pain 10/28/2021 10/31/2021 RUQ pain 10/28/2021 10/31/2021 Chest pain 10/24/2021 10/31/2021 Gastrointestinal hemorrhage with melena 10/23/19 22 10/26/2021 Diarrhea 02/28/2015 02/28/2015 GI bleed 10/31/2021 Atrial fibrillation 10/24/2021 documented as of this encounter (statuses as of 07/23/2022) [facility] History of Past illness Narrative* Problem Noted Date Resolved Date Hypertensive emergency 10/28/2021 Right flank pain 10/28/2021 10/31/2021 RUQ pain 10/28/2021 10/31/2021 Chest pain 10/24/2021 10/31/2021 Gastrointestinal hemorrhage with melena 10/23/19 22 10/26/2021 Diarrhea 02/28/2015 02/28/2015 GI bleed 10/31/2021 Atrial fibrillation 10/24/2021 documented as of this encounter (statuses as of 07/23/2022) [facility] History of Past illness Narrative* Problem Noted Date Resolved Date Hypertensive emergency 10/28/2021 Right flank pain 10/28/2021 10/31/2021 RUQ pain 10/28/2021 10/31/2021 Chest pain 10/24/2021 10/31/2021 Gastrointestinal hemorrhage with melena 10/23/19 22 10/26/2021 Diarrhea 02/28/2015 02/28/2015 GI bleed 10/31/2021 Atrial fibrillation 10/24/2021 documented as of this encounter (statuses as of 07/30/2022) [facility] History of Past illness Narrative* Problem Noted Date Resolved Date Hypertensive emergency 10/28/2021 Right flank pain 10/28/2021 10/31/2021 RUQ pain 10/28/2021 10/31/2021 Chest pain 10/24/2021 10/31/2021 Gastrointestinal hemorrhage with melena 10/23/19 22 10/26/2021 Diarrhea 02/28/2015 02/28/2015 GI bleed 10/31/2021 Atrial fibrillation 10/24/2021 documented as of this encounter (statuses as of 07/30/2022) [facility] of Past illness Narrative* Problem Noted Date Resolved Date Hypertensive emergency 10/28/2021 2 Right flank pain 10/28/2021 10/31/2021 RUQ pain 10/28/2021 10/31/2021 Chest pain 10/24/2021 10/31/2021 Gastrointestinal hemorrhage with melena 10/23/19 22 10/26/2021 Diarrhea 02/28/2015 02/28/2015 GI bleed 10/31/2021 Atrial fibrillation 10/24/2021 documented as of this encounter (statuses as of 08/04/2022) [facility] History of Past illness Narrative* Problem Noted Date Resolved Date Hypertensive emergency 10/28/2021 2 Right flank pain 10/28/2021 10/31/2021 RUQ pain 10/28/2021 10/31/2021 Chest pain 10/24/2021 10/31/2021 Gastrointestinal hemorrhage with melena 10/23/19 22 10/26/2021 Diarrhea 02/28/2015 02/28/2015 GI bleed 10/31/2021 Atrial fibrillation 10/24/2021 documented as of this encounter (statuses as of 08/07/2022) [facility] of Past illness Narrative* Problem Noted Date Resolved Date Hypertensive emergency 10/28/2021 2 Right flank pain 10/28/2021 10/31/2021 RUQ pain 10/28/2021 10/31/2021 Chest pain 10/24/2021 10/31/2021 Gastrointestinal hemorrhage with melena 10/23/19 22 10/26/2021 Diarrhea 02/28/2015 02/28/2015 GI bleed 10/31/2021 Atrial fibrillation 10/24/2021 documented as of this encounter (statuses as of 08/08/2022) [facility] of Past illness Narrative* Problem Noted Date Resolved Date Hypertensive emergency 10/28/2021 Right flank pain 10/28/2021 10/31/2021 RUQ pain 10/28/2021 10/31/2021 Chest pain 10/24/2021 10/31/2021 Gastrointestinal hemorrhage with melena 10/23/19 22 10/26/2021 Diarrhea 02/28/2015 02/28/2015 GI bleed 10/31/2021 Atrial fibrillation 10/24/2021 documented as of this encounter (statuses as of 08/28/2022) [facility] of Past illness Narrative* Problem Noted Date Resolved Date Hypertensive emergency 10/28/2021 Right flank pain 10/28/2021 10/31/2021 RUQ pain 10/28/2021 10/31/2021 Chest pain 10/24/2021 10/31/2021 Gastrointestinal hemorrhage with melena 10/23/19 22 10/26/2021 Diarrhea 02/28/2015 02/28/2015 GI bleed 10/31/2021 Atrial fibrillation 10/24/2021 documented as of this encounter (statuses as of 08/30/2022) [facility] of Past illness Narrative* Problem Noted Date Resolved Date Hypertensive emergency 10/28/2021 Right flank pain 10/28/2021 10/31/2021 RUQ pain 10/28/2021 10/31/2021 Chest pain 10/24/2021 10/31/2021 Gastrointestinal hemorrhage with melena 10/23/19 22 10/26/2021 Diarrhea 02/28/2015 02/28/2015 GI bleed 10/31/2021 Atrial fibrillation 10/24/2021 documented as of this encounter (statuses as of 09/01/2022) [facility] History of Past illness Narrative* Problem Noted Date Resolved Date Hypertensive emergency 10/28/2021 Right flank pain 10/28/2021 10/31/2021 RUQ pain 10/28/2021 10/31/2021 Chest pain 10/24/2021 10/31/2021 Gastrointestinal hemorrhage with melena 10/23/19 22 10/26/2021 Diarrhea 02/28/2015 02/28/2015 GI bleed 10/31/2021 Atrial fibrillation 10/24/2021 documented as of this encounter (statuses as of 09/03/2022) [facility]22 History of Past illness Narrative* Problem Noted Date Resolved Date Hypertensive emergency 10/28/2021 2 Right flank pain 10/28/2021 10/31/2021 RUQ pain 10/28/2021 10/31/2021 Chest pain 10/24/2021 10/31/2021 Gastrointestinal hemorrhage with melena 10/23/19 22 10/26/2021 Diarrhea 02/28/2015 02/28/2015 GI bleed 10/31/2021 Atrial fibrillation 10/24/2021 documented as of this encounter (statuses as of 09/24/2022) [facility] History of Past illness Narrative* Problem Noted Date Resolved Date Hypertensive emergency 10/28/2021 2 Right flank pain 10/28/2021 10/31/2021 RUQ pain 10/28/2021 10/31/2021 Chest pain 10/24/2021 10/31/2021 Gastrointestinal hemorrhage with melena 10/23/19 22 10/26/2021 Diarrhea 02/28/2015 02/28/2015 GI bleed 10/31/2021 Atrial fibrillation 10/24/2021 documented as of this encounter (statuses as of 10/10/2022) [facility] History of Past illness Narrative* Problem Noted Date Resolved Date Hypertensive emergency 10/28/2021 2 Right flank pain 10/28/2021 10/31/2021 RUQ pain 10/28/2021 10/31/2021 Chest pain 10/24/2021 10/31/2021 Gastrointestinal hemorrhage with melena 10/23/19 22 10/26/2021 Diarrhea 02/28/2015 02/28/2015 GI bleed 10/31/2021 Atrial fibrillation 10/24/2021 documented as of this encounter (statuses as of 10/13/2022) [facility] History of Past illness Narrative* Problem Noted Date Resolved Date Hypertensive emergency 10/28/2021 2 Right flank pain 10/28/2021 10/31/2021 RUQ pain 10/28/2021 10/31/2021 Chest pain 10/24/2021 10/31/2021 Gastrointestinal hemorrhage with melena 10/23/19 22 10/26/2021 Diarrhea 02/28/2015 02/28/2015 GI bleed 10/31/2021 Atrial fibrillation 10/24/2021 documented as of this encounter (statuses as of 10/17/2022) [facility] History of Past illness Narrative* Problem Noted Date Resolved Date Hypertensive emergency 10/28/2021 Right flank pain 10/28/2021 10/31/2021 RUQ pain 10/28/2021 10/31/2021 Chest pain 10/24/2021 10/31/2021 Gastrointestinal hemorrhage with melena 10/23/19 22 10/26/2021 Diarrhea 02/28/2015 02/28/2015 GI bleed 10/31/2021 Atrial fibrillation 10/24/2021 documented as of this encounter (statuses as of 10/23/2022) [facility] History of Past illness Narrative* Problem Noted Date Resolved Date Hypertensive emergency 10/28/2021 Right flank pain 10/28/2021 10/31/2021 RUQ pain 10/28/2021 10/31/2021 Chest pain 10/24/2021 10/31/2021 Gastrointestinal hemorrhage with melena 10/23/19 22 10/26/2021 Diarrhea 02/28/2015 02/28/2015 GI bleed 10/31/2021 Atrial fibrillation 10/24/2021 documented as of this encounter (statuses as of 10/24/2022) [facility] History of Past illness Narrative* Problem Noted Date Diagnosed Date Resolved Date Hypertensive emergency 10/28/202110/31 Right flank pain 10/28/2021 10/31/2021 RUQ pain 10/28/2021 10/31/2021 Chest pain 10/24/2021 10/31/2021 Gastrointestinal hemorrhage with melena 10/22/2021 10/26/2021 Diarrhea 02/28/2015 02/28/2015 GI bleed 10/31/2021 Atrial fibrillation 10/25/19 22 documented as of this encounter (statuses as of 11/11/2022) [facility] History of Past illness Narrative* Problem Noted Date Diagnosed Date Resolved Date Hypertensive emergency 10/28/202110/31 Right flank pain 10/28/2021 10/31/2021 RUQ pain 10/28/2021 10/31/2021 Chest pain 10/24/2021 10/31/2021 Gastrointestinal hemorrhage with melena 10/22/2021 10/26/2021 Diarrhea 02/28/2015 02/28/2015 GI bleed 10/31/2021 Atrial fibrillation 10/25/19 22 documented as of this encounter (statuses as of 11/20/2022) [facility] History of Past illness Narrative* Problem Noted Date Diagnosed Date Resolved Date Hypertensive emergency 10/28/202110/31 Right flank pain 10/28/2021 10/31/2021 RUQ pain 10/28/2021 10/31/2021 Chest pain 10/24/2021 10/31/2021 Gastrointestinal hemorrhage with melena 10/22/2021 10/26/2021 Diarrhea 02/28/2015 02/28/2015 GI bleed 10/31/2021 Atrial fibrillation 10/25/19 22 documented as of this encounter (statuses as of 11/21/2022) [facility] History of Past illness Narrative* Problem Noted Date Diagnosed Date Resolved Date Hypertensive emergency 10/28/202110/31 Right flank pain 10/28/2021 10/31/2021 RUQ pain 10/28/2021 10/31/2021 Chest pain 10/24/2021 10/31/2021 Gastrointestinal hemorrhage with melena 10/22/2021 10/26/2021 Diarrhea 02/28/2015 02/28/2015 GI bleed 10/31/2021 Atrial fibrillation 10/25/19 22 documented as of this encounter (statuses as of 11/24/2022) [facility] History of Past illness Narrative* Problem Noted Date Diagnosed Date Resolved Date Hypertensive emergency 10/28/202110/31 Right flank pain 10/28/2021 10/31/2021 RUQ pain 10/28/2021 10/31/2021 Chest pain 10/24/2021 10/31/2021 Gastrointestinal hemorrhage with melena 10/22/2021 10/26/2021 Diarrhea 02/28/2015 02/28/2015 GI bleed 10/31/2021 Atrial fibrillation 10/25/19 22 documented as of this encounter (statuses as of 11/24/2022) [facility] History of Past illness Narrative* Problem Noted Date Diagnosed Date Resolved Date Hypertensive emergency 10/28/202110/31 Right flank pain 10/28/2021 10/31/2021 RUQ pain 10/28/2021 10/31/2021 Chest pain 10/24/2021 10/31/2021 Gastrointestinal hemorrhage with melena 10/22/2021 10/26/2021 Diarrhea 02/28/2015 02/28/2015 GI bleed 10/31/2021 Atrial fibrillation 10/25/19 22 documented as of this encounter (statuses as of 12/02/2022) [facility] History of Past illness Narrative* Problem Noted Date Diagnosed Date Resolved Date Hypertensive emergency 10/28/202110/31 Right flank pain 10/28/2021 10/31/2021 RUQ pain 10/28/2021 10/31/2021 Chest pain 10/24/2021 10/31/2021 Gastrointestinal hemorrhage with melena 10/22/2021 10/26/2021 Diarrhea 02/28/2015 02/28/2015 GI bleed 10/31/2021 Atrial fibrillation 10/25/19 22 documented as of this encounter (statuses as of 12/04/2022) [facility] History of Past illness Narrative* Problem Noted Date Diagnosed Date Resolved Date Hypertensive emergency 10/28/202110/31 Right flank pain 10/28/2021 10/31/2021 RUQ pain 10/28/2021 10/31/2021 Chest pain 10/24/2021 10/31/2021 Gastrointestinal hemorrhage with melena 10/22/2021 10/26/2021 Diarrhea 02/28/2015 02/28/2015 GI bleed 10/31/2021 Atrial fibrillation 10/25/19 22 documented as of this encounter (statuses as of 12/04/2022) [facility] History of Past illness Narrative* Problem Noted Date Diagnosed Date Resolved Date Hypertensive emergency 10/28/202110/31 Right flank pain 10/28/2021 10/31/2021 RUQ pain 10/28/2021 10/31/2021 Chest pain 10/24/2021 10/31/2021 Gastrointestinal hemorrhage with melena 10/22/2021 10/26/2021 Diarrhea 02/28/2015 02/28/2015 GI bleed 10/31/2021 Atrial fibrillation 10/25/19 22 documented as of this encounter (statuses as of 12/11/2022) [facility] History of Past illness Narrative* Problem Noted Date Diagnosed Date Resolved Date Hypertensive emergency 10/28/202110/31 Right flank pain 10/28/2021 10/31/2021 RUQ pain 10/28/2021 10/31/2021 Chest pain 10/24/2021 10/31/2021 Gastrointestinal hemorrhage with melena 10/22/2021 10/26/2021 Diarrhea 02/28/2015 02/28/2015 GI bleed 10/31/2021 Atrial fibrillation 10/25/19 22 documented as of this encounter (statuses as of 2022) [facility] History of Past illness Narrative* Problem Noted Date Diagnosed Date Resolved Date Hypertensive emergency 10/28/202110/31 Right flank pain 10/28/2021 10/31/2021 RUQ pain 10/28/2021 10/31/2021 Chest pain 10/24/2021 10/31/2021 Gastrointestinal hemorrhage with melena 10/22/2021 10/26/2021 Diarrhea 02/28/2015 02/28/2015 GI bleed 10/31/2021 Atrial fibrillation 10/25/19 22 documented as of this encounter (statuses as of 2022) [facility] History of Past illness Narrative* Problem Noted Date Diagnosed Date Resolved Date Hypertensive emergency 10/28/202110/31 Right flank pain 10/28/2021 10/31/2021 RUQ pain 10/28/2021 10/31/2021 Chest pain 10/24/2021 10/31/2021 Gastrointestinal hemorrhage with melena 10/22/2021 10/26/2021 Diarrhea 02/28/2015 02/28/2015 GI bleed 10/31/2021 Atrial fibrillation 10/25/19 22 documented as of this encounter (statuses as of 12/14/2022) [facility] History of Past illness Narrative* Problem Noted Date Diagnosed Date Resolved Date Hypertensive emergency 10/28/202110/31 Right flank pain 10/28/2021 10/31/2021 RUQ pain 10/28/2021 10/31/2021 Chest pain 10/24/2021 10/31/2021 Gastrointestinal hemorrhage with melena 10/22/2021 10/26/2021 Diarrhea 02/28/2015 02/28/2015 GI bleed 10/31/2021 Atrial fibrillation 10/25/19 22 documented as of this encounter (statuses as of 12/15/2022) [facility] History of Past illness Narrative* Problem Noted Date Diagnosed Date Resolved Date Hypertensive emergency 10/28/202110/31 Right flank pain 10/28/2021 10/31/2021 RUQ pain 10/28/2021 10/31/2021 Chest pain 10/24/2021 10/31/2021 Gastrointestinal hemorrhage with melena 10/22/2021 10/26/2021 Diarrhea 02/28/2015 02/28/2015 GI bleed 10/31/2021 Atrial fibrillation 10/25/19 22 documented as of this encounter (statuses as of 12/19/2022) [facility] History of Past illness Narrative* Problem Noted Date Diagnosed Date Resolved Date Hypertensive emergency 10/28/202110/31 Right flank pain 10/28/2021 10/31/2021 RUQ pain 10/28/2021 10/31/2021 Chest pain 10/24/2021 10/31/2021 Gastrointestinal hemorrhage with melena 10/22/2021 10/26/2021 Diarrhea 02/28/2015 02/28/2015 GI bleed 10/31/2021 Atrial fibrillation 10/25/19 22 documented as of this encounter (statuses as of 12/22/2022) [facility] History of Past illness Narrative* Problem Noted Date Diagnosed Date Resolved Date Hypertensive emergency 10/28/202110/31 Right flank pain 10/28/2021 10/31/2021 RUQ pain 10/28/2021 10/31/2021 Chest pain 10/24/2021 10/31/2021 Gastrointestinal hemorrhage with melena 10/22/2021 10/26/2021 Diarrhea 02/28/2015 02/28/2015 GI bleed 10/31/2021 Atrial fibrillation 10/25/19 22 documented as of this encounter (statuses as of 12/22/2022) [facility] History of Past illness Narrative* Problem Noted Date Diagnosed Date Resolved Date Hypertensive emergency 10/28/202110/31 Right flank pain 10/28/2021 10/31/2021 RUQ pain 10/28/2021 10/31/2021 Chest pain 10/24/2021 10/31/2021 Gastrointestinal hemorrhage with melena 10/22/2021 10/26/2021 Diarrhea 02/28/2015 02/28/2015 GI bleed 10/31/2021 Atrial fibrillation 10/25/19 22 documented as of this encounter (statuses as of 12/31/2022) [facility] History of Past illness Narrative* Problem Noted Date Diagnosed Date Resolved Date Hypertensive emergency 10/28/202110/31 Right flank pain 10/28/2021 10/31/2021 RUQ pain 10/28/2021 10/31/2021 Chest pain 10/24/2021 10/31/2021 Gastrointestinal hemorrhage with melena 10/22/2021 10/26/2021 Diarrhea 02/28/2015 02/28/2015 GI bleed 10/31/2021 Atrial fibrillation 10/25/19 22 documented as of this encounter (statuses as of 01/09/2023) [facility] History of Past illness Narrative* Problem Noted Date Diagnosed Date Resolved Date Hypertensive emergency 10/28/202110/31 Right flank pain 10/28/2021 10/31/2021 RUQ pain 10/28/2021 10/31/2021 Chest pain 10/24/2021 10/31/2021 Gastrointestinal hemorrhage with melena 10/22/2021 10/26/2021 Diarrhea 02/28/2015 02/28/2015 GI bleed 10/31/2021 Atrial fibrillation 10/25/19 22 documented as of this encounter (statuses as of 01/13/2023) [facility] History of Past illness Narrative* Problem Noted Date Diagnosed Date Resolved Date Hypertensive emergency 10/28/202110/31 Right flank pain 10/28/2021 10/31/2021 RUQ pain 10/28/2021 10/31/2021 Chest pain 10/24/2021 10/31/2021 Gastrointestinal hemorrhage with melena 10/22/2021 10/26/2021 Diarrhea 02/28/2015 02/28/2015 GI bleed 10/31/2021 Atrial fibrillation 10/25/19 22 documented as of this encounter (statuses as of 01/15/2023) [facility] History of Past illness Narrative* Problem Noted Date Diagnosed Date Resolved Date Hypertensive emergency 10/28/202110/31 Right flank pain 10/28/2021 10/31/2021 RUQ pain 10/28/2021 10/31/2021 Chest pain 10/24/2021 10/31/2021 Gastrointestinal hemorrhage with melena 10/22/2021 10/26/2021 Diarrhea 02/28/2015 02/28/2015 GI bleed 10/31/2021 Atrial fibrillation 10/25/19 22 documented as of this encounter (statuses as of 01/15/2023) [facility] History of Past illness Narrative* Problem Noted Date Diagnosed Date Resolved Date Hypertensive emergency 10/28/202110/31 Right flank pain 10/28/2021 10/31/2021 RUQ pain 10/28/2021 10/31/2021 Chest pain 10/24/2021 10/31/2021 Gastrointestinal hemorrhage with melena 10/22/2021 10/26/2021 Diarrhea 02/28/2015 02/28/2015 GI bleed 10/31/2021 Atrial fibrillation 10/25/19 22 documented as of this encounter (statuses as of 01/16/2023) [facility] History of Past illness Narrative* Problem Noted Date Diagnosed Date Resolved Date Hypertensive emergency 10/28/202110/31 Right flank pain 10/28/2021 10/31/2021 RUQ pain 10/28/2021 10/31/2021 Chest pain 10/24/2021 10/31/2021 Gastrointestinal hemorrhage with melena 10/22/2021 10/26/2021 Diarrhea 02/28/2015 02/28/2015 GI bleed 10/31/2021 Atrial fibrillation 10/25/19 22 documented as of this encounter (statuses as of 01/16/2023) [facility] History of Past illness Narrative* Problem Noted Date Diagnosed Date Resolved Date Hypertensive emergency 10/28/202110/31 Right flank pain 10/28/2021 10/31/2021 RUQ pain 10/28/2021 10/31/2021 Chest pain 10/24/2021 10/31/2021 Gastrointestinal hemorrhage with melena 10/22/2021 10/26/2021 Diarrhea 02/28/2015 02/28/2015 GI bleed 10/31/2021 Atrial fibrillation 10/25/19 22 documented as of this encounter (statuses as of 01/19/2023) [facility] History of Past illness Narrative* Problem Noted Date Diagnosed Date Resolved Date Hypertensive emergency 10/28/202110/31 Right flank pain 10/28/2021 10/31/2021 RUQ pain 10/28/2021 10/31/2021 Chest pain 10/24/2021 10/31/2021 Gastrointestinal hemorrhage with melena 10/22/2021 10/26/2021 Diarrhea 02/28/2015 02/28/2015 GI bleed 10/31/2021 Atrial fibrillation 10/25/19 22 documented as of this encounter (statuses as of 01/20/2023) [facility] History of Past illness Narrative* Problem Noted Date Diagnosed Date Resolved Date Hypertensive emergency 10/28/202110/31 Right flank pain 10/28/2021 10/31/2021 RUQ pain 10/28/2021 10/31/2021 Chest pain 10/24/2021 10/31/2021 Gastrointestinal hemorrhage with melena 10/22/2021 10/26/2021 Diarrhea 02/28/2015 02/28/2015 GI bleed 10/31/2021 Atrial fibrillation 10/25/19 22 documented as of this encounter (statuses as of 01/24/2023) [facility] History of Past illness Narrative* Problem Noted Date Diagnosed Date Resolved Date Hypertensive emergency 10/28/202110/31 Right flank pain 10/28/2021 10/31/2021 RUQ pain 10/28/2021 10/31/2021 Chest pain 10/24/2021 10/31/2021 Gastrointestinal hemorrhage with melena 10/22/2021 10/26/2021 Diarrhea 02/28/2015 02/28/2015 GI bleed 10/31/2021 Atrial fibrillation 10/25/19 22 documented as of this encounter (statuses as of 01/25/2023) [facility] History of Past illness Narrative* Problem Noted Date Diagnosed Date Resolved Date Hypertensive emergency 10/28/202110/31 Right flank pain 10/28/2021 10/31/2021 RUQ pain 10/28/2021 10/31/2021 Chest pain 10/24/2021 10/31/2021 Gastrointestinal hemorrhage with melena 10/22/2021 10/26/2021 Diarrhea 02/28/2015 02/28/2015 GI bleed 10/31/2021 Atrial fibrillation 10/25/19 22 documented as of this encounter (statuses as of 01/28/2023) [facility] History of Past illness Narrative* Problem Noted Date Diagnosed Date Resolved Date Hypertensive emergency 10/28/202110/31 Right flank pain 10/28/2021 10/31/2021 RUQ pain 10/28/2021 10/31/2021 Chest pain 10/24/2021 10/31/2021 Gastrointestinal hemorrhage with melena 10/22/2021 10/26/2021 Diarrhea 02/28/2015 02/28/2015 GI bleed 10/31/2021 Atrial fibrillation 10/25/19 22 documented as of this encounter (statuses as of 01/31/2023) [facility] History of Past illness Narrative* Problem Noted Date Diagnosed Date Resolved Date Hypertensive emergency 10/28/202110/31 Right flank pain 10/28/2021 10/31/2021 RUQ pain 10/28/2021 10/31/2021 Chest pain 10/24/2021 10/31/2021 Gastrointestinal hemorrhage with melena 10/22/2021 10/26/2021 Diarrhea 02/28/2015 02/28/2015 GI bleed 10/31/2021 Atrial fibrillation 10/25/19 22 documented as of this encounter (statuses as of 01/31/2023) [facility] History of Past illness Narrative* Problem Noted Date Diagnosed Date Resolved Date Hypertensive emergency 10/28/202110/31 Right flank pain 10/28/2021 10/31/2021 RUQ pain 10/28/2021 10/31/2021 Chest pain 10/24/2021 10/31/2021 Gastrointestinal hemorrhage with melena 10/22/2021 10/26/2021 Diarrhea 02/28/2015 02/28/2015 GI bleed 10/31/2021 Atrial fibrillation 10/25/19 22 documented as of this encounter (statuses as of 02/03/2023) [facility] History of Past illness Narrative* Problem Noted Date Diagnosed Date Resolved Date Hypertensive emergency 10/28/202110/31 Right flank pain 10/28/2021 10/31/2021 RUQ pain 10/28/2021 10/31/2021 Chest pain 10/24/2021 10/31/2021 Gastrointestinal hemorrhage with melena 10/22/2021 10/26/2021 Diarrhea 02/28/2015 02/28/2015 GI bleed 10/31/2021 Atrial fibrillation 10/25/19 22 documented as of this encounter (statuses as of 02/04/2023) [facility] History of Past illness Narrative* Problem Noted Date Diagnosed Date Resolved Date Hypertensive emergency 10/28/202110/31 Right flank pain 10/28/2021 10/31/2021 RUQ pain 10/28/2021 10/31/2021 Chest pain 10/24/2021 10/31/2021 Gastrointestinal hemorrhage with melena 10/22/2021 10/26/2021 Diarrhea 02/28/2015 02/28/2015 GI bleed 10/31/2021 Atrial fibrillation 10/25/19 22 documented as of this encounter (statuses as of 02/06/2023) [facility] History of Past illness Narrative* Problem Noted Date Diagnosed Date Resolved Date Hypertensive emergency 10/28/202110/31 Right flank pain 10/28/2021 10/31/2021 RUQ pain 10/28/2021 10/31/2021 Chest pain 10/24/2021 10/31/2021 Gastrointestinal hemorrhage with melena 10/22/2021 10/26/2021 Diarrhea 02/28/2015 02/28/2015 GI bleed 10/31/2021 Atrial fibrillation 10/25/19 22 documented as of this encounter (statuses as of 02/11/2023) [facility] History of Past illness Narrative* Problem Noted Date Diagnosed Date Resolved Date Hypertensive emergency 10/28/202110/31 Right flank pain 10/28/2021 10/31/2021 RUQ pain 10/28/2021 10/31/2021 Chest pain 10/24/2021 10/31/2021 Gastrointestinal hemorrhage with melena 10/22/2021 10/26/2021 Diarrhea 02/28/2015 02/28/2015 GI bleed 10/31/2021 Atrial fibrillation 10/25/19 22 documented as of this encounter (statuses as of 02/13/2023) [facility] History of Past illness Narrative* Problem Noted Date Diagnosed Date Resolved Date Hypertensive emergency 10/28/202110/31 Right flank pain 10/28/2021 10/31/2021 RUQ pain 10/28/2021 10/31/2021 Chest pain 10/24/2021 10/31/2021 Gastrointestinal hemorrhage with melena 10/22/2021 10/26/2021 Diarrhea 02/28/2015 02/28/2015 GI bleed 10/31/2021 Atrial fibrillation 10/25/19 22 documented as of this encounter (statuses as of 02/18/2023) [facility] History of Past illness Narrative* Problem Noted Date Diagnosed Date Resolved Date Hypertensive emergency 10/28/202110/31 Right flank pain 10/28/2021 10/31/2021 RUQ pain 10/28/2021 10/31/2021 Chest pain 10/24/2021 10/31/2021 Gastrointestinal hemorrhage with melena 10/22/2021 10/26/2021 Diarrhea 02/28/2015 02/28/2015 GI bleed 10/31/2021 Atrial fibrillation 10/25/19 22 documented as of this encounter (statuses as of 02/18/2023) [facility] History of Past illness Narrative* Problem Noted Date Diagnosed Date Resolved Date Hypertensive emergency 10/28/202110/31 Right flank pain 10/28/2021 10/31/2021 RUQ pain 10/28/2021 10/31/2021 Chest pain 10/24/2021 10/31/2021 Gastrointestinal hemorrhage with melena 10/22/2021 10/26/2021 Diarrhea 02/28/2015 02/28/2015 GI bleed 10/31/2021 Atrial fibrillation 10/25/19 22 documented as of this encounter (statuses as of 02/23/2023) [facility] History of Past illness Narrative* Problem Noted Date Diagnosed Date Resolved Date Hypertensive emergency 10/28/202110/31 Right flank pain 10/28/2021 10/31/2021 RUQ pain 10/28/2021 10/31/2021 Chest pain 10/24/2021 10/31/2021 Gastrointestinal hemorrhage with melena 10/22/2021 10/26/2021 Diarrhea 02/28/2015 02/28/2015 GI bleed 10/31/2021 Atrial fibrillation 10/25/19 22 documented as of this encounter (statuses as of 03/02/2023) [facility] History of Past illness Narrative* Problem Noted Date Diagnosed Date Resolved Date Hypertensive emergency 10/28/202110/31 Right flank pain 10/28/2021 10/31/2021 RUQ pain 10/28/2021 10/31/2021 Chest pain 10/24/2021 10/31/2021 Gastrointestinal hemorrhage with melena 10/22/2021 10/26/2021 Diarrhea 02/28/2015 02/28/2015 GI bleed 10/31/2021 Atrial fibrillation 10/25/19 22 documented as of this encounter (statuses as of 03/05/2023) [facility] History of Past illness Narrative* Problem Noted Date Diagnosed Date Resolved Date Hypertensive emergency 10/28/202110/31 Right flank pain 10/28/2021 10/31/2021 RUQ pain 10/28/2021 10/31/2021 Chest pain 10/24/2021 10/31/2021 Gastrointestinal hemorrhage with melena 10/22/2021 10/26/2021 Diarrhea 02/28/2015 02/28/2015 GI bleed 10/31/2021 Atrial fibrillation 10/25/19 22 documented as of this encounter (statuses as of 03/05/2023) [facility] History of Past illness Narrative* Problem Noted Date Diagnosed Date Resolved Date Hypertensive emergency 10/28/202110/31 Right flank pain 10/28/2021 10/31/2021 RUQ pain 10/28/2021 10/31/2021 Chest pain 10/24/2021 10/31/2021 Gastrointestinal hemorrhage with melena 10/22/2021 10/26/2021 Diarrhea 02/28/2015 02/28/2015 GI bleed 10/31/2021 Atrial fibrillation 10/25/19 22 documented as of this encounter (statuses as of 03/05/2023) [facility] History of Past illness Narrative* Problem Noted Date Diagnosed Date Resolved Date Hypertensive emergency 10/28/202110/31 Right flank pain 10/28/2021 10/31/2021 RUQ pain 10/28/2021 10/31/2021 Chest pain 10/24/2021 10/31/2021 Gastrointestinal hemorrhage with melena 10/22/2021 10/26/2021 Diarrhea 02/28/2015 02/28/2015 GI bleed 10/31/2021 Atrial fibrillation 10/25/19 22 documented as of this encounter (statuses as of 03/05/2023) [facility] History of Past illness Narrative* Problem Noted Date Diagnosed Date Resolved Date Hypertensive emergency 10/28/202110/31 Right flank pain 10/28/2021 10/31/2021 RUQ pain 10/28/2021 10/31/2021 Chest pain 10/24/2021 10/31/2021 Gastrointestinal hemorrhage with melena 10/22/2021 10/26/2021 Diarrhea 02/28/2015 02/28/2015 GI bleed 10/31/2021 Atrial fibrillation 10/25/19 22 documented as of this encounter (statuses as of 03/05/2023) [facility] History of Past illness Narrative* Problem Noted Date Diagnosed Date Resolved Date Hypertensive emergency 10/28/202110/31 Right flank pain 10/28/2021 10/31/2021 RUQ pain 10/28/2021 10/31/2021 Chest pain 10/24/2021 10/31/2021 Gastrointestinal hemorrhage with melena 10/22/2021 10/26/2021 Diarrhea 02/28/2015 02/28/2015 GI bleed 10/31/2021 Atrial fibrillation 10/25/19 22 documented as of this encounter (statuses as of 03/11/2023) [facility]07-04-2022 History of Past illness Narrative* Problem Noted Date Diagnosed Date Resolved Date Hypertensive emergency 10/28/202110/31 Right flank pain 10/28/2021 10/31/2021 RUQ pain 10/28/2021 10/31/2021 Chest pain 10/24/2021 10/31/2021 Gastrointestinal hemorrhage with melena 10/22/2021 10/26/2021 Diarrhea 02/28/2015 02/28/2015 GI bleed 10/31/2021 Atrial fibrillation 10/25/19 22 documented as of this encounter (statuses as of 03/12/2023) [facility]20[facility] History of Past illness Narrative* Problem Noted Date Diagnosed Date Resolved Date Hypertensive emergency 10/28/202110/31 Right flank pain 10/28/2021 10/31/2021 RUQ pain 10/28/2021 10/31/2021 Chest pain 10/24/2021 10/31/2021 Gastrointestinal hemorrhage with melena 10/22/2021 10/26/2021 Diarrhea 02/28/2015 02/28/2015 GI bleed 10/31/2021 Atrial fibrillation 10/25/19 22 documented as of this encounter (statuses as of 03/12/2023) [address]04-2022 History of Past illness Narrative* Problem Noted Date Diagnosed Date Resolved Date Hypertensive emergency 10/28/202110/31 Right flank pain 10/28/2021 10/31/2021 RUQ pain 10/28/2021 10/31/2021 Chest pain 10/24/2021 10/31/2021 Gastrointestinal hemorrhage with melena 10/22/2021 10/26/2021 Diarrhea 02/28/2015 02/28/2015 GI bleed 10/31/2021 Atrial fibrillation 10/25/19 22 documented as of this encounter (statuses as of 03/16/2023) [facility]20[facility] History of Past illness Narrative* Problem Noted Date Diagnosed Date Resolved Date Hypertensive emergency 10/28/202110/31 Right flank pain 10/28/2021 10/31/2021 RUQ pain 10/28/2021 10/31/2021 Chest pain 10/24/2021 10/31/2021 Gastrointestinal hemorrhage with melena 10/22/2021 10/26/2021 Diarrhea 02/28/2015 02/28/2015 GI bleed 10/31/2021 Atrial fibrillation 10/25/19 22 documented as of this encounter (statuses as of 03/18/2023) [facility] History of Past illness Narrative* Problem Noted Date Diagnosed Date Resolved Date Hypertensive emergency 10/28/202110/31 Right flank pain 10/28/2021 10/31/2021 RUQ pain 10/28/2021 10/31/2021 Chest pain 10/24/2021 10/31/2021 Gastrointestinal hemorrhage with melena 10/22/2021 10/26/2021 Diarrhea 02/28/2015 02/28/2015 GI bleed 10/31/2021 Atrial fibrillation 10/25/19 22 documented as of this encounter (statuses as of 04/05/2023) [facility] History of Past illness Narrative* Problem Noted Date Diagnosed Date Resolved Date Hypertensive emergency 10/28/202110/31 Right flank pain 10/28/2021 10/31/2021 RUQ pain 10/28/2021 10/31/2021 Chest pain 10/24/2021 10/31/2021 Gastrointestinal hemorrhage with melena 10/22/2021 10/26/2021 Diarrhea 02/28/2015 02/28/2015 GI bleed 10/31/2021 Atrial fibrillation 10/25/19 22 documented as of this encounter (statuses as of 06/12/2023) [facility] History of Past illness Narrative* Problem Noted Date Diagnosed Date Resolved Date Hypertensive emergency 10/28/202110/31 Right flank pain 10/28/2021 10/31/2021 RUQ pain 10/28/2021 10/31/2021 Chest pain 10/24/2021 10/31/2021 Gastrointestinal hemorrhage with melena 10/22/2021 10/26/2021 Diarrhea 02/28/2015 02/28/2015 GI bleed 10/31/2021 Atrial fibrillation 10/25/19 22 documented as of this encounter (statuses as of 06/18/2023) [facility] History of Past illness Narrative* Problem Noted Date Diagnosed Date Resolved Date Hypertensive emergency 10/28/202110/31 Right flank pain 10/28/2021 10/31/2021 RUQ pain 10/28/2021 10/31/2021 Chest pain 10/24/2021 10/31/2021 Gastrointestinal hemorrhage with melena 10/22/2021 10/26/2021 Diarrhea 02/28/2015 02/28/2015 GI bleed 10/31/2021 Atrial fibrillation 10/25/19 22 documented as of this encounter (statuses as of 06/25/2023) [facility] History of Past illness Narrative* Problem Noted Date Diagnosed Date Resolved Date Hypertensive emergency 10/28/202110/31 Right flank pain 10/28/2021 10/31/2021 RUQ pain 10/28/2021 10/31/2021 Chest pain 10/24/2021 10/31/2021 Gastrointestinal hemorrhage with melena 10/22/2021 10/26/2021 Diarrhea 02/28/2015 02/28/2015 GI bleed 10/31/2021 Atrial fibrillation 10/25/19 22 documented as of this encounter (statuses as of 07/10/2023) [facility] History of Past illness Narrative* Problem Noted Date Diagnosed Date Resolved Date Hypertensive emergency 10/28/202110/31 Right flank pain 10/28/2021 10/31/2021 RUQ pain 10/28/2021 10/31/2021 Chest pain 10/24/2021 10/31/2021 Gastrointestinal hemorrhage with melena 10/22/2021 10/26/2021 Diarrhea 02/28/2015 02/28/2015 GI bleed 10/31/2021 Atrial fibrillation 10/25/19 22 documented as of this encounter (statuses as of 07/13/2023) [facility] History of Past illness Narrative* Problem Noted Date Diagnosed Date Resolved Date Hypertensive emergency 10/28/202110/31 Right flank pain 10/28/2021 10/31/2021 RUQ pain 10/28/2021 10/31/2021 Chest pain 10/24/2021 10/31/2021 Gastrointestinal hemorrhage with melena 10/22/2021 10/26/2021 Diarrhea 02/28/2015 02/28/2015 GI bleed 10/31/2021 Atrial fibrillation 10/25/19 22 documented as of this encounter (statuses as of 07/21/2023) [facility] History of Past illness Narrative* Problem Noted Date Diagnosed Date Resolved Date Hypertensive emergency 10/28/202110/31 Right flank pain 10/28/2021 10/31/2021 RUQ pain 10/28/2021 10/31/2021 Chest pain 10/24/2021 10/31/2021 Gastrointestinal hemorrhage with melena 10/22/2021 10/26/2021 Diarrhea 02/28/2015 02/28/2015 GI bleed 10/31/2021 Atrial fibrillation 10/25/19 22 documented as of this encounter (statuses as of 07/22/2023) [facility] History of Past illness Narrative* Problem Noted Date Diagnosed Date Resolved Date Hypertensive emergency 10/28/202110/31 Right flank pain 10/28/2021 10/31/2021 RUQ pain 10/28/2021 10/31/2021 Chest pain 10/24/2021 10/31/2021 Gastrointestinal hemorrhage with melena 10/22/2021 10/26/2021 Diarrhea 02/28/2015 02/28/2015 GI bleed 10/31/2021 Atrial fibrillation 10/25/19 22 documented as of this encounter (statuses as of 07/28/2023) [facility]04[facility]20[facility] History of Past illness Narrative* Problem Noted Date Diagnosed Date Resolved Date Hypertensive emergency 10/28/202110/31 Right flank pain 10/28/2021 10/31/2021 RUQ pain 10/28/2021 10/31/2021 Chest pain 10/24/2021 10/31/2021 Gastrointestinal hemorrhage with melena 10/22/2021 10/26/2021 Diarrhea 02/28/2015 02/28/2015 GI bleed 10/31/2021 Atrial fibrillation 10/25/19 22 documented as of this encounter (statuses as of 08/06/2023) [facility] History of Past illness Narrative* Problem Noted Date Diagnosed Date Resolved Date Hypertensive emergency 10/28/202110/31 Right flank pain 10/28/2021 10/31/2021 RUQ pain 10/28/2021 10/31/2021 Chest pain 10/24/2021 10/31/2021 Gastrointestinal hemorrhage with melena 10/22/2021 10/26/2021 Diarrhea 02/28/2015 02/28/2015 GI bleed 10/31/2021 Atrial fibrillation 10/25/19 22 documented as of this encounter (statuses as of 08/12/2023) [facility] History of Past illness Narrative* Problem Noted Date Diagnosed Date Resolved Date Hypertensive emergency 10/28/202110/31 Right flank pain 10/28/2021 10/31/2021 RUQ pain 10/28/2021 10/31/2021 Chest pain 10/24/2021 10/31/2021 Gastrointestinal hemorrhage with melena 10/22/2021 10/26/2021 Diarrhea 02/28/2015 02/28/2015 GI bleed 10/31/2021 Atrial fibrillation 10/25/19 22 documented as of this encounter (statuses as of 08/12/2023) [facility] History of Past illness Narrative* Problem Noted Date Diagnosed Date Resolved Date Hypertensive emergency 10/28/202110/31 Right flank pain 10/28/2021 10/31/2021 RUQ pain 10/28/2021 10/31/2021 Chest pain 10/24/2021 10/31/2021 Gastrointestinal hemorrhage with melena 10/22/2021 10/26/2021 Diarrhea 02/28/2015 02/28/2015 GI bleed 10/31/2021 Atrial fibrillation 10/25/19 22 documented as of this encounter (statuses as of 08/13/2023) [facility] Miscellaneous Notes* Telephone Encounter - Maribell [...] PA-C. Maribell Cunha RN documented [facility] Miscellaneous Notes* Telephone Encounter - Maribell Cunha RN - 09/12/2021 8:24 AM EDT Called Gloria with [facility]. Notified of message from Bill Woods [...] she was short some medication. 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 She doesn't have any questions or needs at this time. Maribell Cunha RN * Telephone Encounter - Maribell Cunha RN - 09/11/2021 3:54 PM EDT Called patient at mobile number, no answer. Message left for patient to return call to office when able. Maribell Cunha RN * Telephone Encounter - Tiffanie Cline - 09/11/2021 2:35 PM EDT Crystal Call Name of caller : Gloria, Director Correctional AgencyMeal Grinder Tender to patient: [facility] Return call phone number : [phone] Reason for call : Medication : Name : Modafinil Questions/concern : Juliet Castro Mgr. is calling because she was with patient today and [facility] in her pill box and patient states does not take it every day, takes its PRN and wondering if that should change to like it says, 1 a day. Please call to discuss further. PHARMACY name : N/A [facility] Hospital Discharge instructions Patient Education 06/15/2021 [...] and cutdown on salt. A dietitian or environmental educator can help make a meal plan [...] for checkups and lab tests as scheduled. [phone] [employer] [place] [phone]. All rights reserved. This information is not intended as a substitute for professional medical care. Always follow yourhealthcare professional's instructions. Follow Up Care 06/15/2021 19:52:40 With:SAMANTHA CHOPRA [facility] Address: [phone] When:2-4 days [facility] 11-04-2015 History of Past illness Narrative* Problem Noted Date Resolved Date Diarrhea 02/28/2015 02/28/2015 documented as of this encounter (statuses as of 08/09/2021) [facility] History of Past illness Narrative* Problem Noted Date Resolved Date Diarrhea 02/28/2015 02/28/2015 documented as of this encounter (statuses as of 09/12/2021) [facility] History of Past illness Narrative* Problem Noted Date Resolved Date Diarrhea 02/28/2015 02/28/2015 documented as of this encounter (statuses as of 10/04/2021) [facility] No data available for this section [facility] Evaluation note* Diagnosis Onset Date Resolution Status Mural thrombus of heart acut e Atherosclerotic heart diseas e of [place] coronary artery without angina pectoris chronic Essential (primary) hypertension chronic Hyperlipemia chronic Ischemic cardiomyopathy coil taper vernon Paroxysmal atrial fibrillation chronic Chest pain resolved Anemia chronic Chronic neck pain with histo ry of cervical spinal surgery chronic Essential (primary) hypertension chronic Hyperkalemia acute BRYAN (obstructive sleep apnea) chronic Osteoporosis chronic Type 2 diabetes mellitus [facility] Work Phone: Evaluation note* Diagnosis Onset Date Resolution Status Chest pain resolved Anemia chronic Chronic neck pain with histo ry of cervical spinal surgery chronic Essential (primary) hypertension chronic Hyperkalemia acute BRYAN (obstructive sleep apnea) chronic Osteoporosis chronic Type 2 diabetes mellitus [facility] BRYAN (obstructive sleep apnea) chronic [facility] Work Phone: Evaluation note* Diagnosis Onset Date Resolution Status Anemia chronic Chronic neck pain with histo ry of cervical spinal surgery chronic Essential (primary) hypertension chronic Hyperkalemia acute BRYAN (obstructive sleep apnea) chronic Type 2 diabetes mellitus chr onic BRYAN (obstructive sleep apnea) chronic BRYAN (obstructive sleep apnea) chronic [facility] Work Phone: Evaluation note* Diagnosis MS (multiple sclerosis) ([facility])- Primary Multiple sclerosis [facility] Diagnosis Onset Date Resolution Status BRYAN (obstructive sleep apnea) chronic BRYAN (obstructive sleep apnea) chronic Essential (primary) hypertension chronic Paroxysmal atrial fibrillation chronic Type 2 diabetes mellitus chr onic Acute UTI acute Near syncope acute Sepsis acute [facility] Work Phone: Evaluation note* Diagnosis Onset Date Resolution Status BRYAN (obstructive sleep apnea) chronic BRYAN (obstructive sleep apnea) chronic Essential (primary) hypertension chronic Paroxysmal atrial fibrillation chronic Type 2 diabetes mellitus chr onic Acute UTI acute Near syncope acute Sepsis acute Chronic neck pain with histo ry of cervical spinal surgery chronic [facility] Work Phone: Evaluation note* Diagnosis Onset Date Resolution Status Essential (primary) hypertension chronic Paroxysmal atrial fibrillation chronic Type 2 diabetes mellitus chr onic Chronic neck pain with histo ry of cervical spinal surgery chronic Near syncope resolved Syncope acute Chronic systolic (congestive) heart failure chronic Essential (primary) hypertension chronic Type 2 diabetes mellitus chr onic Osteoporosis chronic Atherosclerotic heart diseas e of [place] coronary artery without angina pectoris chronic Essential (primary) hypertension chronic Hyperlipemia chronic Ischemic cardiomyopathy coil taper vernon Mural thrombus of heart coil taper vernon Paroxysmal atrial fibrillation chronic [facility] Work Phone: Evaluation note* Diagnosis Multiple sclerosis (HCC)- Primary Multiple sclerosis [facility] Diagnosis Onset Date Resolution Status Syncope acute Chronic systolic (congestive) heart failure chronic Essential (primary) hypertension chronic Type 2 diabetes mellitus chr onic Osteoporosis chronic Atherosclerotic heart diseas e of [place] coronary artery without angina pectoris chronic Essential (primary) hypertension chronic Hyperlipemia chronic Ischemic cardiomyopathy coil taper vernon Mural thrombus of heart coil taper vernon Paroxysmal atrial fibrillation chronic Anxiety and depression chron ic Chronic systolic (congestive) heart failure chronic CKD (chronic kidney disease) stage 3, GFR 30-59 ml/min chronic Type 2 diabetes mellitus [facility] Work Phone: Evaluation note* Diagnosis MS (multiple sclerosis) (HCC)- Primary [facility] Multiple [facility] ([facility]CC)- Primary Multiple sclerosis Urinary frequency [facility] Diagnosis Type 2 diabetes mellitus with other specified complication, without long-term current use of insulin (HCC)- Primary [facility] Diagnosis Multiple sclerosis (HCC)- Primary Multiple sclerosis [facility] Diagnosis Type 2 diabetes mellitus with other specified complication, without long-term current use of insulin (HCC) [facility] Diagnosis Multiple sclerosis (HCC)- Primary Multiple sclerosis DDD (degenerative disc disease), thoracic Degeneration of thoracic or thoracolumbar intervertebral disc [facility] Diagnosis Multiple [facility] (HCC)- Primary Multiple sclerosis [facility] Diagnosis DDD (degenerative disc disease), thoracic- Primary Degeneration of thoracic or thoracolumbar intervertebral disc Multiple sclerosis (HCC) Multiple sclerosis [facility] Diagnosis Chronic pain of left knee- Primary Pain in joint, lower leg History of torn meniscus of left knee Personal history of other musculoskeletal disorders History of medial meniscus repair of left knee Congenital retroversion of both femurs MS (multiple sclerosis) (HCC) Multiple sclerosis Current smoker Tobacco use disorder Current use of mcfp anticoagulation Long-term (current) use of anticoagulants [facility] Multiple [facility] (HCC)- Primary Multiple sclerosis [facility] Diagnosis Multiple sclerosis (HCC)- Primary Multiple sclerosis [facility] Diagnosis Sleep apnea, unspecified type- Primary Multiple sclerosis (HCC) Multiple sclerosis Dysarthria [facility] Diagnosis Other chronic pain- Primary MS (multiple sclerosis) (HCC) Multiple sclerosis Paroxysmal A-fib (HCC) Atrial fibrillation Tobacco dependence Tobacco use disorder BMI 28.0-28.9,adult Body Mass Index 28.0-28.9, adult Personal history of spine surgery Other postprocedural status H/O insulin dependent diabetes mellitus Personal history of other endocrine, metabolic, and immunity disorders [facility] ([facility])- Primary Multiple sclerosis [facility]* Diagnosis BRYAN (obstructive sleep apnea)- Primary Obstructive sleep apnea (adult) (pediatric) [facility] Diagnosis Malaise and fatigue- Primary Other malaise and fatigue Lesion of skin of face Unspecified disorder of skin and subcutaneous tissue Skin sore Unspecified disorder of skin and subcutaneous tissue Multiple sclerosis (HCC) Multiple sclerosis [facility] Diagnosis Multiple sclerosis (HCC)- Primary Multiple sclerosis [facility] Diagnosis Postural kyphosis of thoracic region- Primary Kyphosis (acquired) (postural) 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 Cervical vertebral fusion Other unspecified back disorder S/P lumbar fusion Arthrodesis status [facility]* Diagnosis Obstructive sleep apnea- Primary Obstructive sleep apnea (adult) (pediatric) Insomnia, unspecified type RLS (restless legs syndrome) Restless legs syndrome (RLS) Hypersomnia due to medical condition Hypersomnia due to medical condition classified elsewhere [facility]* Diagnosis Folliculitis- Primary Other specified disease of hair and hair follicles [facility] Diagnosis Other chronic pain [facility]* Diagnosis 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)- Primary [facility] Diagnosis Multiple sclerosis (HCC)- Primary Multiple sclerosis [facility]* Diagnosis Controlled type 2 diabetes mellitus without complication, unspecified whether mcfp insulin use (HCC)- Primary [facility] Diagnosis Folliculitis- Primary Other specified disease of hair and hair follicles [facility] Diagnosis Controlled type 2 diabetes mellitus without complication, unspecified whether terminologist insulin use (HCC)- Primary documented in this [...] Index 26.0-26.9, adult [facility] Diagnosis Multiple sclerosis (HCC)- Primary Multiple sclerosis [facility]* Diagnosis Myofascial pain- Primary Mylagia and myositis, unspecified Current smoker Tobacco use disorder Other kyphosis of thoracic region Abnormal posture Abnormal increased muscle tightness Spasm of muscle Tobacco dependence Tobacco use disorder Anxiety and depression Dysthymic disorder [facility] Diagnosis Myofascial pain syndrome of lumbar [...] Index 30.0-30.9, adult [facility] Diagnosis Multiple sclerosis (HCC)- Primary Multiple sclerosis [facility] Diagnosis Multiple sclerosis (HCC)- Primary Multiple sclerosis [facility] Diagnosis Chronic midline low back pain without sciatica Multiple sclerosis (HCC) Multiple sclerosis [facility] Diagnosis MS (multiple sclerosis) (HCC)- Primary [...] insulin (HCC)- Primary [facility] Diagnosis Multiple sclerosis (HCC)- Primary Multiple sclerosis Dysarthria Type 2 diabetes mellitus with other specified complication, without long-term current use of insulin (HCC)- Primary [facility]* Diagnosis Multiple sclerosis (HCC)- Primary Multiple sclerosis [facility]* Diagnosis Type 2 diabetes mellitus with other specified complication, without long-term current use of insulin (HCC)- Primary [facility]* Diagnosis Multiple sclerosis (HCC)- Primary Multiple sclerosis [facility] Diagnosis Chronic fatigue Other malaise and fatigue [facility] Diagnosis Thoracic myelopathy- Primary Spondylosis with myelopathy, thoracic region History of multiple sclerosis (HCC) Personal history of other disorders of nervous system and sense organs Spinal stenosis of lumbar region with neurogenic claudication Spinal stenosis, lumbar region, with neurogenic claudication Lumbar foraminal stenosis Spinal stenosis, lumbar region, without neurogenic claudication [facility] Diagnosis Thoracic myelopathy Spondylosis with myelopathy, thoracic region History of multiple sclerosis (HCC) Personal history of other disorders of nervous system and sense organs [facility] Diagnosis Thoracic myelopathy Spondylosis with myelopathy, thoracic region History of multiple sclerosis (HCC) Personal history of other disorders of nervous system and sense organs [facility] Diagnosis Myofascial pain- Primary Mylagia and myositis, unspecified Other chronic pain Neck pain, chronic Cervicalgia Myofascial pain syndrome of lumbar spine MS (multiple sclerosis) (HCC) Multiple sclerosis Myofascial pain syndrome Mylagia and myositis, unspecified Elevated hemoglobin A1c Other abnormal blood chemistry Current smoker Tobacco use disorder [facility] Diagnosis 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) Malaise and fatigue Other malaise and fatigue Multiple sclerosis (HCC) Multiple sclerosis [facility] Diagnosis 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)- Primary Malaise and fatigue Other malaise and fatigue Multiple sclerosis (HCC) Multiple sclerosis [facility] Diagnosis Irritant dermatitis- Primary Contact dermatitis and other eczema, due to unspecified cause Prurigo nodularis Lichenification and lichen simplex chronicus Inflamed seborrheic keratosis [facility] Diagnosis Thoracic myelopathy- Primary Spondylosis [...] Inflamed seborrheic keratosis [facility] Diagnosis Spinal stenosis of lumbar [...] with neurogenic claudication [facility] Diagnosis MS (multiple sclerosis) (HCC)- [...] of other medications [facility] Diagnosis Spinal stenosis of thoracic [...] Other postprocedural status [facility] Diagnosis Spinal stenosis, multiple sites in spine- Primary Spinal stenosis, other region Wound infection after surgery Other postoperative infection Controlled type 2 diabetes mellitus without complication, unspecified whether terminologist insulin use (HCC)- [facility] Diagnosis Controlled type 2 diabetes mellitus without complication, unspecified whether mcfp insulin use (HCC)- Primary [facility] Diagnosis 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 Carrier or suspected carrier of Methicillin resistant Staphylococcus aureus [facility] Diagnosis Multiple sclerosis (HCC)- Primary Multiple sclerosis [facility] Diagnosis Spinal stenosis, multiple sites [...] [facility] Diagnosis Thoracic myelopathy- Primary Spondylosis with myelopathy, thoracic region H/O laminectomy Other postprocedural status Spasticity Abnormal involuntary movements Impairment of balance Abnormality of gait [facility] Diagnosis Spinal stenosis, multiple sites in spine Spinal stenosis, other region [facility] Diagnosis Encounter for long-term (current) use of medications- Primary Encounter for long-term (current) use of other medications Chronic, continuous use of opioids Opioid type dependence, continuous Chronic pain syndrome Other chronic pain Neck pain, chronic Cervicalgia Current smoker Tobacco use disorder History of recent stressful life event [facility] Diagnosis MS (multiple sclerosis) (HCC)- Primary Multiple sclerosis Optic nerve atrophy, bilateral Optic atrophy, unspecified Nonexudative age-related macular degeneration, bilateral, early dry stage Vitreous degeneration of both eyes Vitreous degeneration Pseudophakia Lens replaced by other means Refractive error Unspecified disorder of refraction and accommodation Presbyopia [facility] Diagnosis Controlled type 2 diabetes mellitus without complication, unspecified whether terminologist insulin use (HCC)- [facility] Multiple [facility] (HCC)- Primary Multiple sclerosis Memory impairment Memory loss Dysarthria Urinary frequency [facility] Diagnosis Multiple sclerosis (HCC)- Primary Multiple sclerosis [facility] Diagnosis Chronic fatigue Other malaise and fatigue [facility] Diagnosis S/P lumbar laminectomy Other postprocedural status [facility] Diagnosis Cervical myelopathy (HCC)- Primary Cervical spondylosis with myelopathy History of laminectomy Other postprocedural status Sacroiliac joint pain Disorders of sacrum Oth deforming dorsopathies, sacral and sacrococcygeal region [facility] Diagnosis Postprocedural state Other postprocedural status [facility]* Diagnosis Chronic fatigue Other malaise and fatigue [facility]* Diagnosis Multiple sclerosis (HCC) Multiple sclerosis [facility] Diagnosis Multiple sclerosis (HCC) Multiple sclerosis [facility] Diagnosis Multiple sclerosis (HCC)- Primary Multiple sclerosis Sacroiliitis Sacroiliitis, not elsewhere classified Chronic right sacroiliac joint pain Disorders of sacrum [facility] Diagnosis 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 Folliculitis Other specified disease of hair and hair follicles Sacroiliitis Sacroiliitis, not elsewhere classified Chronic right sacroiliac joint pain Disorders of sacrum [facility] Diagnosis Controlled type 2 diabetes mellitus without complication, unspecified whether mcfp insulin use (HCC) [facility] Diagnosis Controlled type 2 diabetes mellitus without complication, unspecified whether terminologist insulin use (HCC)- Primary [facility] Diagnosis MS (multiple sclerosis) (HCC)- [...] stated as uncontrolled [facility] Diagnosis Multiple sclerosis (HCC)- Primary Multiple sclerosis [facility] Diagnosis Inflamed seborrheic keratosis- Primary Prurigo nodularis Lichenification and lichen simplex chronicus [facility]* Diagnosis Muscle spasm- Primary Spasm of muscle Nicotine dependence, cigarettes, uncomplicated Postprocedural state Other postprocedural status Spinal stenosis, multiple sites in spine Spinal stenosis, other region [facility] Diagnosis Low back pain, unspecified back pain laterality, unspecified chronicity, unspecified whether sciatica present [facility] Diagnosis Controlled type 2 diabetes mellitus without complication, unspecified whether terminologist insulin use (HCC)- Primary [facility]* Diagnosis Other chronic pain Neck pain, chronic Cervicalgia Chronic right sacroiliac joint pain Disorders of sacrum Sacroiliitis Sacroiliitis, not elsewhere classified [facility]* Diagnosis Multiple sclerosis (HCC)- Primary Multiple sclerosis Chronic right sacroiliac joint pain Disorders of sacrum Sacroiliitis Sacroiliitis, not elsewhere classified [facility] Additional Instructions You have a UTI. Take the antibiotics and follow up with your doctor next week. If symptoms worsen return to the emergency room.[facility] Work Phone: Hospital Discharge instructions Additional Instructions Your test tonight were unremarkable. Do not have a specific cause for your pain. Call and follow-up with your primary care physician. Return if worse.[facility] Work Phone: Reason for referral (narrative)* Diagnostic Procedure Only (Routine) - Closed Specialty Diagnoses / Procedures Referred By Louise t Referred To Contact XR IMAGING Diagnoses Chronic pain of left knee History of torn meniscus of left knee History of medial meniscus repair of left knee Procedures XR KNEE GENERAL 4V AP BOTH/PA BOTH/LAT/MERC BILATERAL RADIOLOGIC EXAM KNEE COMPLETE 4/MORE VIEWS Heather Davis MD [address] [address] [place] [address] Xr Imaging Referral ID Status Reason Start Date Expiration Date V isits Requested Visits Authorized [id number] Closed Auto-Generate d Referral 11/04/2022 12/04/2023 1 1 [facility] for referral (narrative)* Diagnostic Procedure Only (Routine) - Closed Specialty Diagnoses / Procedures Referred By Contac t Referred To Contact XR IMAGING Diagnoses Postural kyphosis of thoracic region Procedures XR THORACIC GENERAL 3V AP/LAT/SWIMMERS RADEX SPINE THORACIC 3 VIEWS Meka Webb MD [address] [place] [address] Xr Imaging [place] [address] Referral ID Status Reason Start Date Expiration Date V isits Requested Visits Authorized [id number] Closed Auto-Generate d Referral 01/15/2023 02/14/2024 1 1 * Diagnostic Procedure Only (Routine) - Closed Specialty Diagnoses / Procedures Referred By Contac t Referred To Contact XR IMAGING Diagnoses Cervical vertebral fusion Procedures XR CERVICAL 2V FLEX/EXT RADEX SPINE CERVICAL 2 OR 3 VIEWS Meka Webb MD [address] [place] [address] Xr Imaging [place] [address] Referral ID Status Reason Start Date Expiration Date V isits Requested Visits Authorized [id number] Closed Auto-Generate d Referral 01/15/2023 02/14/2024 1 1 * Diagnostic Procedure Only (Routine) - Closed Specialty Diagnoses / Procedures Referred By Contac t Referred To Contact XR IMAGING Diagnoses Cervical vertebral fusion Procedures XR CERV OTHER 4V AP/LAT/OBL RADEX SPINE CERVICAL 4 OR 5 VIEWS Meka Webb MD [address] [facility] [place] [id number] [place] [address] Referral ID Status Reason Start Date Expiration Date V isits Requested Visits Authorized [id number] Closed Auto-Generate d Referral 01/15/2023 02/14/2024 1 1 * Diagnostic Procedure Only (Routine) - Closed Specialty Diagnoses / Procedures Referred By Contac t Referred To Contact XR IMAGING Diagnoses S/P lumbar fusion Procedures XR LUMBAR MOTION 4V AP/LAT/ FLEX/EXT RADEX SPINE LUMBOSACRAL MINIMUM 4 VIEWS Meka Webb MD [address] [place] [address] Xr Imaging [place] [address] Referral ID Status Reason Start Date Expiration Date V isits Requested Visits Authorized [id number] Closed Auto-Generate d Referral 01/15/2023 02/14/2024 1 1 [facility] for referral (narrative)* Diagnostic Procedure Only (Routine) - Closed Specialty Diagnoses / Procedures Referred By Contac t Referred To Contact XR IMAGING Diagnoses Postural kyphosis of thoracic region Procedures XR THORACIC GENERAL 3V AP/LAT/SWIMMERS RADEX SPINE THORACIC 3 VIEWS Meka Webb MD [address] [place] [address] Xr Imaging [facility] Referral ID Status Reason Start Date Expiration Date V isits Requested Visits Authorized [id number] Closed Auto-Generate d Referral 01/15/2023 02/14/2024 1 1 * Diagnostic Procedure Only (Routine) - Closed Specialty Diagnoses / Procedures Referred By Contac t Referred To Contact XR IMAGING Diagnoses Cervical vertebral fusion Procedures XR CERVICAL 2V FLEX/EXT RADEX SPINE CERVICAL 2 OR 3 VIEWS Meka Webb MD [address] [place] [address] [place] [address] Referral ID Status Reason Start Date Expiration Date V isits Requested Visits Authorized [id number] Closed Auto-Generate d Referral 01/15/2023 02/14/2024 1 1 * Diagnostic Procedure Only (Routine) - Closed Specialty Diagnoses / Procedures Referred By Contac t Referred To Contact XR IMAGING Diagnoses Cervical vertebral fusion Procedures XR CERV OTHER 4V AP/LAT/OBL RADEX SPINE CERVICAL 4 OR 5 VIEWS Meka Webb MD [address] [place] [address] [place] [address] Referral ID Status Reason Start Date Expiration Date V isits Requested Visits Authorized [id number] Closed Auto-Generate d Referral 01/15/2023 02/14/2024 1 1 * Diagnostic Procedure Only (Routine) - Closed Specialty Diagnoses / Procedures Referred By Contac t Referred To Contact XR IMAGING Diagnoses S/P lumbar fusion Procedures XR LUMBAR MOTION 4V AP/LAT/ FLEX/EXT RADEX SPINE LUMBOSACRAL MINIMUM 4 VIEWS Meka Webb MD [address] [place] [address] [place] [address] Referral ID Status Reason Start Date Expiration Date V isits Requested Visits Authorized [id number] Closed Auto-Generate d Referral 01/15/2023 02/14/2024 1 1 [facility] for referral (narrative)* Diagnostic Procedure Only (Routine) - New Request Specialty Diagnoses / Procedures Referred By Contac t Referred To Contact XR IMAGING Diagnoses S/P lumbar laminectomy Procedures XR LUMBAR LIMITED 2V AP/LAT RADEX SPINE LUMBOSACRAL 2/3 VIEWS Chloe Mackenzie MD [address] [place] [address] [place] [address] Referral ID Status Reason Start Date Expiration Date Visits Requested Visits Authorized [id number] New Request Auto-Generat ed Referral 02/24/2025 1 1 [facility] for visit Narrative* Diagnostic Procedure Only (Routine) - Closed Specialty Diagnoses / Procedures Referred By Contac t Referred To Contact XR IMAGING Diagnoses Thoracic myelopathy History of multiple sclerosis (HCC) Procedures XR THORACIC GENERAL 3V AP/LAT/SWIMMERS RADEX SPINE THORACIC 3 VIEWS Meka Webb MD [address] [place] [address] [place] [address] Referral ID Status Reason Start Date Expiration Date V isits Requested Visits Authorized [id number] Closed Auto-Generate d Referral 09/15/2023 10/14/2024 1 1 [facility] for visit Narrative* Diagnostic Procedure Only (Routine) - Closed Specialty Diagnoses / Procedures Referred By Contac t Referred To Contact XR IMAGING Diagnoses Postural kyphosis of thoracic region Procedures XR THORACIC GENERAL 3V AP/LAT/SWIMMERS RADEX SPINE THORACIC 3 VIEWS Meka Webb MD [address] [place] [address] [place] [address] Referral ID Status Reason Start Date Expiration Date V isits Requested Visits Authorized [id number] Closed Auto-Generate d Referral 01/15/2023 02/14/2024 1 1 [facility] for visit Narrative* Diagnostic Procedure Only (Routine) - Closed Specialty Diagnoses / Procedures Referred By Contac t Referred To Contact XR IMAGING Diagnoses S/P lumbar laminectomy Procedures XR LUMBAR LIMITED 2V AP/LAT RADEX SPINE LUMBOSACRAL 2/3 VIEWS Chloe Mackenzie MD [address] [facility] [address] [place] [address] [place] [address] Referral ID Status Reason Start Date Expiration Date V isits Requested Visits Authorized [id number] Closed Auto-Generate d Referral 02/05/2024 02/24/2025 1 1 [facility] for visit Narrative* Diagnostic Procedure Only (Routine) - Closed Specialty Diagnoses / Procedures Referred By Contac t Referred To Contact XR IMAGING Diagnoses S/P lumbar laminectomy Procedures XR LUMBAR LIMITED 2V AP/LAT RADEX SPINE LUMBOSACRAL 2/3 VIEWS Chloe Mackenzie MD [address] [facility] [address] [place] [address] [place] [address] Referral ID Status Reason Start Date Expiration Date V isits Requested Visits Authorized [id number] Closed Auto-Generate d Referral 03/02/2024 04/01/2025 1 1 [facility] for visit Narrative* Diagnostic Procedure Only (Routine) - Closed Specialty Diagnoses / Procedures Referred By Contac t Referred To Contact XR IMAGING Diagnoses S/P lumbar laminectomy Procedures XR LUMBAR MOTION 4V AP/LAT/ FLEX/EXT RADEX SPINE LUMBOSACRAL MINIMUM 4 VIEWS Chloe Mackenzie MD [facility] [facility] [address] [place] [address] Phone: tel: fax: [place] [address] Referral ID Status Reason Start Date Expiration Date V isits Requested Visits Authorized [id number] Closed Auto-Generate d Referral 07/27/2024 08/26/2025 1 1 [facility] for visit Narrative* MRI/CT (Routine) - Closed Specialty Diagnoses / Procedures Referred By Contac t Referred To Contact MR IMAGING Diagnoses Multiple sclerosis (HCC) Procedures MRI BRAIN WO IVCON MRI BRAIN BRAIN STEM W/O CONTRAST MATERIAL Bill Woods PA-C [address] [facility] [place] [address] Phone: tel: fax: [place] [address] Referral ID Status Reason Start Date Expiration Date V isits Requested Visits Authorized [id number] Closed Auto-Generate d Referral 03/04/2024 04/03/2025 1 1 [facility] for visit Narrative* MRI/CT (Routine) - Closed Specialty Diagnoses / Procedures Referred By Contac t Referred To Contact MR IMAGING Diagnoses Multiple sclerosis (HCC) Procedures MRI CERVICAL SPINE WO IVCON MRI SPINAL CANAL CERVICAL W/O CONTRAST MATRL Young, Bill, PA-C [address] [place] [address] Phone: tel: fax: [place] [address] Referral ID Status Reason Start Date Expiration Date V isits Requested Visits Authorized [id number] Closed Auto-Generate d Referral 03/04/2024 04/03/2025 1 1 [facility] for visit Narrative* Auth/Cert (Routine) Specialty Diagnoses / Procedures Referred By Contac t Referred To Contact PAIN MANAGEMENT Diagnoses Sacroiliitis Chronic right sacroiliac joint pain Sacroiliitis [M46.1] Chronic right sacroiliac joint pain [M53.3, G89.29] Procedures INJECT SI JOINT ARTHRGRPHY&/ANES/STEROID W/JANY BLOCK SACROILIAC WITH C-ARM [facility] [address] [place] [address] Phone: tel: Referral ID Status Reason Start Date Expiration Date Visits Re quested Visits Authorized [id number] 1 1 [facility] for visit Narrative* Consult, Test, Treat (Routine) - Closed Specialty Diagnoses / Procedures Referred By Contac t Referred To Contact Diagnoses Controlled type 2 diabetes mellitus without complication, unspecified whether mcfp insulin use (HCC) Procedures CONSULT TO DIABETES EDUCATION DSME MEDICAL NUTRITION ASSMT&IVNTJ INDIV EACH 15 TN MEDICAL NUTRITION ASSMT&IVNTJ INDIV EACH 15 TN MEDICAL NUTRITION ASSMT&IVNTJ INDIV EACH 15 TN MEDICAL NUTRITION ASSMT&IVNTJ INDIV EACH 15 TN Rosa Flores, [employer] [address] [place] [address] Phone: tel: fax: Referral ID Status Reason Start Date Expiration Date V isits Requested Visits Authorized [id number] Closed PCP Requested Referral 09/21/2024 09/21/2025 1 1 [facility] for visit Narrative* Diagnostic Procedure Only (Routine) - Closed Specialty Diagnoses / Procedures Referred By Contac t Referred To Contact XR IMAGING Diagnoses Low back pain, unspecified back pain laterality, unspecified chronicity, unspecified whether sciatica present Procedures XR LUMBAR MOTION 4V AP/LAT/ FLEX/EXT RADEX SPINE LUMBOSACRAL MINIMUM 4 VIEWS Chloe Mackenzie MD [address] [facility] [address] [place] [address] Phone: tel: fax: [place] [address] Referral ID Status Reason Start Date Expiration Date V isits Requested Visits Authorized [id number] Closed Auto-Generate d Referral 10/20/2024 11/19/2025 1 1 [facility] Summary Purpose Family History No Family History Records Found Relationship Condition Age at Onset Recorded Date/T loly father Malignant neoplasm Unknown mother Malignant neoplasm Unknown Advance Directives No Advanced Directives Records FoundDocuments on File Type Date Recorded 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 Advance Directive(s) 10/23/2021 8:31 PM [...] Date/ Time Name of Medical Power of Burial Needs Salesperson paris mtz May 16, 2021 10:58am Advance Directives No June 02, 2017 12:18pm Living Will Yes June 22 12:48pm Power of Burial Needs Salesperson Yes June 22, 2021 12:48pm Advance Directive Response Recorded Date/ Time Name of Medical Power of Burial Needs Salesperson paris mtz May 16, 2021 10:58am Name of Medical Power of Burial Needs Salesperson Barbara RHODES LCORN June 22, 2021 12:48pm Advance Directives No June 02, 2017 12:18pm Living Will No August 21, 2021 6:39pm Power of Burial Needs Salesperson No August 21 6:39pm Advance Directive Response Recorded Date/ Time Name of Medical Power of Burial Needs Salesperson Barbara RHODES LCORN June 22, 2021 12:48pm Advance Directives No June 02, 2017 12:18pm Living Will No October 07, 2021 5:57pm Power of Burial Needs Salesperson No October 07 5:57pm Documents on File Type Date Recorded 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 Quan Burns November 16, 2021 11:28pm Advance Directives No June 02, 2017 12:18pm Living Will Yes November 16, 2021 11:28pm Power of Burial Needs Salesperson Yes November 16 11:28pm Advance Directive Response Recorded Date/ Time Name of Medical Power of Burial Needs Salesperson PARIS Edourad. Quan Burns November 16, 2021 11:28pm Name of Medical Power of Burial Needs Salesperson goldy VERGARA February 07, 2022 2:29pm Advance Directives No June 02, 2017 12:18pm Living Will Yes February 07 2:29pm Power of Burial Needs Salesperson Yes February 07, 2022 2:29pm Advance Directive Response Recorded Date/ Time Name of Medical Power of Burial Needs Salesperson goldy VERGARA February 07, 2022 1:29pm Name of Medical Power of Burial Needs Salesperson PARIS BUENO April 02, 2022 8:25pm Advance Directives No June 02, 2017 11:18am Living Will Yes April 02 8:25pm Power of Burial Needs Salesperson Yes April 02, 2022 8:25pm Documents on File Type Date Recorded 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 Advance Directive(s) 10/23/2021 8:31 PM [...] Reason for Visit Chief Complaint S/P HOSP ([facility] CP hypertension chest pain chest pain chest pain chest pain chest pain chest pain chest pain CHEST PAIN AND HEADACHE ER F/U, BP ISSUES 3 M FU BRYAN; LM 07/25 ISCHEMIC CARDIOMYOPATHY 1 M FU Reason for Visit Mural thrombus of he art Atherosclerotic heart disease of [place] coronary artery without angina pectoris Essential (primary) [...] wk FU dizzy ER FU VERTIGO - JERROD ER [facility] Reason for Visit BRYAN (obstructive sle ep apnea) BYRAN (obstructive sleep apnea) Essential (primary) hypertension Paroxysmal atrial fibrillation Type 2 diabetes mellitus Acute UTI Near syncope Sepsis Chief Complaint BRYAN; LM 07/25 ISCHEMIC CARDIOMYOPATHY 1 M FU HTN, FLANK PAIN, HEMATURIA 6 wk FU dizzy ER FU VERTIGO - JERROD ER [facility] Reason for Visit BRYAN (obstructive sle ep apnea) BRYAN (obstructive sleep apnea) Essential (primary) hypertension Paroxysmal atrial fibrillation Type 2 diabetes mellitus Acute UTI Near syncope Sepsis Chronic neck pain with history of cervical spinal surgery Chief Complaint ER FU VERTIGO - WOOS TER ER [facility] PRESYNCOPE PRESYNCOPE PRESYNCOPE PRESYNCOPE PRESYNCOPE PRESYNCOPE [facility] PROLIA s/p hosp weakness, dizzy, confused Reason for Visit Essential (primary) hypertension Paroxysmal atrial fibrillation Type 2 diabetes mellitus Chronic neck pain with history of cervical spinal surgery Near syncope Syncope Chronic systolic (congestive) heart failure Essential (primary) hypertension Type 2 diabetes mellitus Osteoporosis Atherosclerotic heart disease of [place] coronary artery without angina pectoris Essential (primary) hypertension Hyperlipemia Ischemic cardiomyopathy Mural thrombus of heart Paroxysmal atrial fibrillation Chief Complaint WC AND DM RODNEY F U PROLIA s/p hosp weakness, dizzy, confused 3 M FU/FLU SHOT CHEST PAIN Reason for Visit Syncope Chronic systolic (congestive) heart failure Essential (primary) hypertension Type 2 diabetes mellitus Osteoporosis Atherosclerotic heart disease of [place] coronary artery without angina pectoris Essential (primary) [...] SPINE W/O CONTRAST MATERIAL Javier Rogers MD [address] [place] [address] Ct Imaging [place] [address] Referral ID Status Reason Start Date Expiration Date Visits Requested Visits Authorized [id number] New Request Auto-Generat ed Referral 11/27/2023 12/26/2024 1 1 Specialty Diagnoses / Procedures Referred By Contac t Referred To Contact CT IMAGING Diagnoses Thoracic myelopathy Procedures CT THORACIC SPINE WO IVCON CT THORACIC SPINE W/O CONTRAST MATERIAL Javier Rogers MD [address] [place] [address] [address] [facility] [place] [address] Referral ID Status Reason Start Date Expiration Date Visits Requested Visits Authorized [id number] New Request Auto-Generat ed Referral 11/27/2023 12/26/2024 1 1 Specialty Diagnoses / Procedures Referred By Contac t Referred To Contact Diagnoses Thoracic myelopathy Procedures CONSULT TO SPINE SURGERY OFFICE/OUTPATIENT [facility] 60 MINUTES Meka Webb MD [address] [place] [address] Referral ID Status Reason Start Date Expiration Date Visits Requested Visits Authorized [id number] Authorized PCP Requested Referral 10/28/2023 10/27/2024 1 1 Specialty Diagnoses / Procedures Referred By Contac t Referred To Contact MR IMAGING Diagnoses Thoracic myelopathy History of multiple sclerosis (HCC) Procedures MRI THORACIC SPINE WO/W IVCON MRI SPINAL CANAL THORACIC W/O & W/CONTR MATRL Meka Webb MD [address] [place] [address] Mr [facility] [place] [address] Referral ID Status Reason Start Date Expiration Date Visits Requested Visits Authorized [id number] Authorized Auto-Generat ed Referral 09/15/2023 10/14/2024 1 1 Specialty Diagnoses / Procedures Referred By Contac t Referred To Contact XR IMAGING Diagnoses Thoracic myelopathy History of multiple sclerosis (HCC) Procedures XR THORACIC GENERAL 3V AP/LAT/SWIMMERS RADEX SPINE THORACIC 3 VIEWS Meka Webb MD [address] [place] [address] Xr Imaging [place] [address] Referral ID Status Reason Start Date Expiration Date Visits Requested Visits Authorized [id number] Pending Review Auto-Generat ed Referral 09/15/2023 10/14/2024 1 1 Specialty Diagnoses / Procedures Referred By Contac t Referred To Contact [facility] Diagnoses Other kyphosis of thoracic region Abnormal posture Abnormal increased muscle tightness Procedures CONSULT TO PHYSICAL THERAPY PHYSICAL THERAPY EVALUATION HIGH COMPLEX 45 MINS Heather Davis MD [address] [place] [address] [facility] [place] [address] Referral ID Status Reason Start Date Expiration Date Visits Requested Visits Authorized [id number] Pending Review Auto-Generat ed Referral 04/03/2023 04/02/2024 1 1 Specialty Diagnoses / Procedures Referred By Contac t Referred To Contact MR IMAGING Diagnoses Multiple sclerosis (HCC) Procedures MRI THORACIC SPINE WO/W IVCON MRI SPINAL CANAL THORACIC W/O & W/CONTR Bill Leahy PA-C [address] [place] [phone] [facility] [place] [address] Referral ID Status Reason Start Date Expiration Date V isits Requested Visits Authorized [id number] Closed Auto-Generate d Referral 10/02/2021 11/01/2022 1 1 Specialty Diagnoses / Procedures Referred By Contac t Referred To Contact MR IMAGING Diagnoses Multiple sclerosis (HCC) Procedures MRI CERVICAL SPINE WO/W IVCON MRI SPINAL CANAL CERVICAL W/O & W/CONTR Bill Leahy PA-C [address] [place] [phone] [facility] [place] [address] Referral ID Status Reason Start Date Expiration Date V isits Requested Visits Authorized [id number] Closed Auto-Generate d Referral 10/02/2021 11/01/2022 1 1 Specialty Diagnoses / Procedures Referred By Contac t Referred To Contact MR IMAGING Diagnoses Multiple sclerosis (HCC) Procedures MRI BRAIN WO/W IVCON MRI BRAIN BRAIN STEM W/O W/CONTRAST MATERIAL Bill Woods PA-C [address] [place] [phone] [facility] [place] [address] Referral ID Status Reason Start Date Expiration Date V isits Requested Visits Authorized [id number] Closed Auto-Generate d Referral 10/02/2021 11/01/2022 1 1 Specialty Diagnoses / Procedures Referred By Contac t Referred To Contact Dermatology Diagnoses Lesion of skin of face Skin sore Procedures CONSULT TO DERMATOLOGY OFFICE/OUTPATIENT [facility] 60-74 MINUTES Bill Woods PA-C [address] [place] [phone] Referral ID Status Reason Start Date Expiration Date Visits Requested Visits Authorized [id number] Pending Review PCP Requested Referral 01/14/2023 01/14/2024 1 1 Specialty Diagnoses / Procedures Referred By Contac t Referred To Contact Dentistry Diagnoses BRYAN (obstructive sleep apnea) Procedures CONSULT TO DENTISTRY OFFICE/OUTPATIENT [facility] 60-74 MINUTES Bill Woods PA-C [address] [facility] [place] [phone] Referral ID Status Reason Start Date Expiration Date Visits Requested Visits Authorized [id number] Pending Review PCP Requested Referral 12/17/2022 12/16/2023 1 1 Specialty Diagnoses / Procedures Referred By Contac t Referred To Contact [facility] Diagnoses Multiple sclerosis (HCC) Procedures CONSULT TO SPEECH THERAPY OFFICE/OUTPATIENT [facility] MDM 60-74 MINUTES Bill Woods PA-C [address] [place] [phone] [facility] [place] [address] [place] [address] Referral ID Status Reason Start Date Expiration Date Visits Requested Visits Authorized [id number] Pending Review Auto-Generat ed Referral 12/03/2022 12/03/2023 1 1 Specialty Diagnoses / Procedures Referred By Kevac t Referred To Contact Diagnoses Sleep apnea, unspecified type Procedures CONSULT TO SLEEP MEDICINE - ADULT OFFICE/OUTPATIENT NEW [facility] 60-74 MINUTES Bill Woods PA-C [address] [place] [phone] Referral ID Status Reason Start Date Expiration Date Visits Requested Visits Authorized [id number] Pending Review PCP Requested Referral 12/03/2022 12/03/2023 1 1 Specialty Diagnoses / Procedures Referred By Kevac t Referred To Contact Pain Management Diagnoses DDD (degenerative disc disease), thoracic Multiple sclerosis (HCC) Procedures CONSULT TO PAIN MGT OFFICE/OUTPATIENT [facility] 60-74 MINUTES Bill Woods PA-C [address] [place] [phone] Referral ID Status Reason Start Date Expiration Date Visits Requested Visits Authorized [id number] Pending Review PCP Requested Referral 10/21/2022 10/21/2023 1 1 Specialty Diagnoses / Procedures Referred By Louise t Referred To Contact Endocrinology Diagnoses Type 2 diabetes mellitus with other specified complication, without long-term current use of insulin (HCC) Procedures CONSULT TO ENDOCRINOLOGY OFFICE/OUTPATIENT [facility] 60-74 MINUTES Bill Woods PA-C [address] [place] [address] Referral ID Status Reason Start Date Expiration Date Visits Requested Visits Authorized [id number] Pending Review PCP Requested Referral 07/29/2022 07/29/2023 1 1 Additional Source Comments INFORMATION SOURCE (unrecogn ized section and content) DATE CREATED AUTHOR 10/19/2017 [facility] Chloe Caro DATE CREATED AUTHOR AUTHOR'S ORGANIZ ATION 02/25/2018 [facility] DATE CREATED AUTHOR AUTHOR'S ORGANIZ ATION 04/09/2018 [facility] DATE CREATED AUTHOR AUTHOR'S ORGANIZ ATION 06/15/2018 [facility] DATE CREATED AUTHOR AUTHOR'S ORGANIZ ATION 01/31/2020 [facility] DATE CREATED AUTHOR AUTHOR'S ORGANIZ ATION 06/29/2021 [facility] ([place]) DATE CREATED AUTHOR AUTHOR'S ORGANIZ ATION 01/18/2023 [facility] DATE CREATED AUTHOR AUTHOR'S ORGANIZ ATION 11/30/2023 [facility] DATE CREATED AUTHOR AUTHOR'S ORGANIZ ATION 11/07/2024 [facility] DATE CREATED AUTHOR AUTHOR'S ORGANIZ ATION 11/18/2024 [facility] DATE CREATED AUTHOR AUTHOR'S ORGANIZ ATION 11/26/2024 [facility] Goals (unrecognized section and content) Goals may be documented in a n alternate section Source Comments (unrecognize d section and content) In the event this informatio n is protected by the Federal Confidentiality of Alcohol and Drug Abuse Patient Records regulations: The Federal rules restrict any use of the information to criminally investigate or prosecute any alcohol or drug abuse patient.[facility] the event this information is protected by the Federal Confidentiality of Alcohol and Drug Abuse Patient Records regulations: The Federal rules restrict any use of the information to criminally investigate or prosecute any alcohol or drug abuse patient.[facility] the event this information is protected by the Federal Confidentiality of Alcohol and Drug Abuse Patient Records regulations: The Federal rules restrict any use of the information to criminally investigate or prosecute any alcohol or drug abuse patient.[facility] the event this information is protected by the Federal Confidentiality of Alcohol and Drug Abuse Patient Records regulations: The Federal rules restrict any use of the information to criminally investigate or prosecute any alcohol or drug abuse patient.[facility]In the event this information is protected by the Federal Confidentiality of Alcohol and Drug Abuse Patient Records regulations: The Federal rules restrict any use of the information to criminally investigate or prosecute any alcohol or drug abuse patient.[facility] the event this information is protected by the Federal Confidentiality of Alcohol and Drug Abuse Patient Records regulations: The Federal rules restrict any use of the information to criminally investigate or prosecute any alcohol or drug abuse patient.[facility] the event this information is protected by the Federal Confidentiality of Alcohol and Drug Abuse Patient Records regulations: The Federal rules restrict any use of the information to criminally investigate or prosecute any alcohol or drug abuse patient.[facility] HospitalIn the event this information is protected by the Federal Confidentiality of Alcohol and Drug Abuse Patient Records regulations: The Federal rules restrict any use of the information to criminally investigate or prosecute any alcohol or drug abuse patient.[facility] HospitalIn the event this information is protected by the Federal Confidentiality of Alcohol and Drug Abuse Patient Records regulations: The Federal rules restrict any use of the information to criminally investigate or prosecute any alcohol or drug abuse patient.[facility] HospitalIn the event this information is protected by the Federal Confidentiality of Alcohol and Drug Abuse Patient Records regulations: The Federal rules restrict any use of the information to criminally investigate or prosecute any alcohol or drug abuse patient.[facility] HospitalIn the event this information is protected by the Federal Confidentiality of Alcohol and Drug Abuse Patient Records regulations: The Federal rules restrict any use of the information to criminally investigate or prosecute any alcohol or drug abuse patient.[facility] HospitalIn the event this information is protected by the Federal Confidentiality of Alcohol and Drug Abuse Patient Records regulations: The Federal rules restrict any use of the information to criminally investigate or prosecute any alcohol or drug abuse patient.[facility] HospitalIn the event this information is protected by the Federal Confidentiality of Alcohol and Drug Abuse Patient Records regulations: The Federal rules restrict any use of the information to criminally investigate or prosecute any alcohol or drug abuse patient.[facility] HospitalIn the event this information is protected by the Federal Confidentiality of Alcohol and Drug Abuse Patient Records regulations: The Federal rules restrict any use of the information to criminally investigate or prosecute any alcohol or drug abuse patient.[facility] HospitalIn the event this information is protected by the Federal Confidentiality of Alcohol and Drug Abuse Patient Records regulations: The Federal rules restrict any use of the information to criminally investigate or prosecute any alcohol or drug abuse patient.[facility] HospitalIn the event this information is protected by the Federal Confidentiality of Alcohol and Drug Abuse Patient Records regulations: The Federal rules restrict any use of the information to criminally investigate or prosecute any alcohol or drug abuse patient.[facility] HospitalIn the event this information is protected by the Federal Confidentiality of Alcohol and Drug Abuse Patient Records regulations: The Federal rules restrict any use of the information to criminally investigate or prosecute any alcohol or drug abuse patient.[facility] HospitalIn the event this information is protected by the Federal Confidentiality of Alcohol and Drug Abuse Patient Records regulations: The Federal rules restrict any use of the information to criminally investigate or prosecute any alcohol or drug abuse patient.[facility] HospitalIn the event this information is protected by the Federal Confidentiality of Alcohol and Drug Abuse Patient Records regulations: The Federal rules restrict any use of the information to criminally investigate or prosecute any alcohol or drug abuse patient.[facility] HospitalIn the event this information is protected by the Federal Confidentiality of Alcohol and Drug Abuse Patient Records regulations: The Federal rules restrict any use of the information to criminally investigate or prosecute any alcohol or drug abuse patient.[facility] HospitalIn the event this information is protected by the Federal Confidentiality of Alcohol and Drug Abuse Patient Records regulations: The Federal rules restrict any use of the information to criminally investigate or prosecute any alcohol or drug abuse patient.[facility] HospitalIn the event this information is protected by the Federal Confidentiality of Alcohol and Drug Abuse Patient Records regulations: The Federal rules restrict any use of the information to criminally investigate or prosecute any alcohol or drug abuse patient.[facility] HospitalIn the event this information is protected by the Federal Confidentiality of Alcohol and Drug Abuse Patient Records regulations: The Federal rules restrict any use of the information to criminally investigate or prosecute any alcohol or drug abuse patient.[facility] HospitalIn the event this information is protected by the Federal Confidentiality of Alcohol and Drug Abuse Patient Records regulations: The Federal rules restrict any use of the information to criminally investigate or prosecute any alcohol or drug abuse patient.[facility] HospitalIn the event this information is protected by the Federal Confidentiality of Alcohol and Drug Abuse Patient Records regulations: The Federal rules restrict any use of the information to criminally investigate or prosecute any alcohol or drug abuse patient.[facility] HospitalIn the event this information is protected by the Federal Confidentiality of Alcohol and Drug Abuse Patient Records regulations: The Federal rules restrict any use of the information to criminally investigate or prosecute any alcohol or drug abuse patient.[facility] HospitalIn the event this information is protected by the Federal Confidentiality of Alcohol and Drug Abuse Patient Records regulations: The Federal rules restrict any use of the information to criminally investigate or prosecute any alcohol or drug abuse patient.[facility] HospitalIn the event this information is protected by the Federal Confidentiality of Alcohol and Drug Abuse Patient Records regulations: The Federal rules restrict any use of the information to criminally investigate or prosecute any alcohol or drug abuse patient.[facility] HospitalIn the event this information is protected by the Federal Confidentiality of Alcohol and Drug Abuse Patient Records regulations: The Federal rules restrict any use of the information to criminally investigate or prosecute any alcohol or drug abuse patient.[facility] HospitalIn the event this information is protected by the Federal Confidentiality of Alcohol and Drug Abuse Patient Records regulations: The Federal rules restrict any use of the information to criminally investigate or prosecute any alcohol or drug abuse patient.[facility] HospitalIn the event this information is protected by the Federal Confidentiality of Alcohol and Drug Abuse Patient Records regulations: The Federal rules restrict any use of the information to criminally investigate or prosecute any alcohol or drug abuse patient.[facility] HospitalIn the event this information is protected by the Federal Confidentiality of Alcohol and Drug Abuse Patient Records regulations: The Federal rules restrict any use of the information to criminally investigate or prosecute any alcohol or drug abuse patient.[facility] HospitalIn the event this information is protected by the Federal Confidentiality of Alcohol and Drug Abuse Patient Records regulations: The Federal rules restrict any use of the information to criminally investigate or prosecute any alcohol or drug abuse patient.[facility] HospitalIn the event this information is protected by the Federal Confidentiality of Alcohol and Drug Abuse Patient Records regulations: The Federal rules restrict any use of the information to criminally investigate or prosecute any alcohol or drug abuse patient.[facility] HospitalIn the event this information is protected by the Federal Confidentiality of Alcohol and Drug Abuse Patient Records regulations: The Federal rules restrict any use of the information to criminally investigate or prosecute any alcohol or drug abuse patient.[facility] HospitalIn the event this information is protected by the Federal Confidentiality of Alcohol and Drug Abuse Patient Records regulations: The Federal rules restrict any use of the information to criminally investigate or prosecute any alcohol or drug abuse patient.[facility] HospitalIn the event this information is protected by the Federal Confidentiality of Alcohol and Drug Abuse Patient Records regulations: The Federal rules restrict any use of the information to criminally investigate or prosecute any alcohol or drug abuse patient.[facility] HospitalIn the event this information is protected by the Federal Confidentiality of Alcohol and Drug Abuse Patient Records regulations: The Federal rules restrict any use of the information to criminally investigate or prosecute any alcohol or drug abuse patient.[facility] HospitalIn the event this information is protected by the Federal Confidentiality of Alcohol and Drug Abuse Patient Records regulations: The Federal rules restrict any use of the information to criminally investigate or prosecute any alcohol or drug abuse patient.[facility] HospitalIn the event this information is protected by the Federal Confidentiality of Alcohol and Drug Abuse Patient Records regulations: The Federal rules restrict any use of the information to criminally investigate or prosecute any alcohol or drug abuse patient.[facility] HospitalIn the event this information is protected by the Federal Confidentiality of Alcohol and Drug Abuse Patient Records regulations: The Federal rules restrict any use of the information to criminally investigate or prosecute any alcohol or drug abuse patient.[facility] HospitalIn the event this information is protected by the Federal Confidentiality of Alcohol and Drug Abuse Patient Records regulations: The Federal rules restrict any use of the information to criminally investigate or prosecute any alcohol or drug abuse patient.[facility] HospitalIn the event this information is protected by the Federal Confidentiality of Alcohol and Drug Abuse Patient Records regulations: The Federal rules restrict any use of the information to criminally investigate or prosecute any alcohol or drug abuse patient.[facility] HospitalIn the event this information is protected by the Federal Confidentiality of Alcohol and Drug Abuse Patient Records regulations: The Federal rules restrict any use of the information to criminally investigate or prosecute any alcohol or drug abuse patient.[facility] HospitalIn the event this information is protected by the Federal Confidentiality of Alcohol and Drug Abuse Patient Records regulations: The Federal rules restrict any use of the information to criminally investigate or prosecute any alcohol or drug abuse patient.[facility] HospitalIn the event this information is protected by the Federal Confidentiality of Alcohol and Drug Abuse Patient Records regulations: The Federal rules restrict any use of the information to criminally investigate or prosecute any alcohol or drug abuse patient.[facility] HospitalIn the event this information is protected by the Federal Confidentiality of Alcohol and Drug Abuse Patient Records regulations: The Federal rules restrict any use of the information to criminally investigate or prosecute any alcohol or drug abuse patient.[facility] HospitalIn the event this information is protected by the Federal Confidentiality of Alcohol and Drug Abuse Patient Records regulations: The Federal rules restrict any use of the information to criminally investigate or prosecute any alcohol or drug abuse patient.[facility] HospitalIn the event this information is protected by the Federal Confidentiality of Alcohol and Drug Abuse Patient Records regulations: The Federal rules restrict any use of the information to criminally investigate or prosecute any alcohol or drug abuse patient.[facility] HospitalIn the event this information is protected by the Federal Confidentiality of Alcohol and Drug Abuse Patient Records regulations: The Federal rules restrict any use of the information to criminally investigate or prosecute any alcohol or drug abuse patient.[facility] HospitalIn the event this information is protected by the Federal Confidentiality of Alcohol and Drug Abuse Patient Records regulations: The Federal rules restrict any use of the information to criminally investigate or prosecute any alcohol or drug abuse patient.[facility] HospitalIn the event this information is protected by the Federal Confidentiality of Alcohol and Drug Abuse Patient Records regulations: The Federal rules restrict any use of the information to criminally investigate or prosecute any alcohol or drug abuse patient.[facility] HospitalIn the event this information is protected by the Federal Confidentiality of Alcohol and Drug Abuse Patient Records regulations: The Federal rules restrict any use of the information to criminally investigate or prosecute any alcohol or drug abuse patient.[facility] HospitalIn the event this information is protected by the Federal Confidentiality of Alcohol and Drug Abuse Patient Records regulations: The Federal rules restrict any use of the information to criminally investigate or prosecute any alcohol or drug abuse patient.[facility] HospitalIn the event this information is protected by the Federal Confidentiality of Alcohol and Drug Abuse Patient Records regulations: The Federal rules restrict any use of the information to criminally investigate or prosecute any alcohol or drug abuse patient.[facility] HospitalIn the event this information is protected by the Federal Confidentiality of Alcohol and Drug Abuse Patient Records regulations: The Federal rules restrict any use of the information to criminally investigate or prosecute any alcohol or drug abuse patient.[facility] HospitalIn the event this information is protected by the Federal Confidentiality of Alcohol and Drug Abuse Patient Records regulations: The Federal rules restrict any use of the information to criminally investigate or prosecute any alcohol or drug abuse patient.[facility] HospitalIn the event this information is protected by the Federal Confidentiality of Alcohol and Drug Abuse Patient Records regulations: The Federal rules restrict any use of the information to criminally investigate or prosecute any alcohol or drug abuse patient.[facility] HospitalIn the event this information is protected by the Federal Confidentiality of Alcohol and Drug Abuse Patient Records regulations: The Federal rules restrict any use of the information to criminally investigate or prosecute any alcohol or drug abuse patient.[facility] HospitalIn the event this information is protected by the Federal Confidentiality of Alcohol and Drug Abuse Patient Records regulations: The Federal rules restrict any use of the information to criminally investigate or prosecute any alcohol or drug abuse patient.[facility]In the event this information is protected by the Federal Confidentiality of Alcohol and Drug Abuse Patient Records regulations: The Federal rules restrict any use of the information to criminally investigate or prosecute any alcohol or drug abuse patient.[facility]In the event this information is protected by the Federal Confidentiality of Alcohol and Drug Abuse Patient Records regulations: The Federal rules restrict any use of the information to criminally investigate or prosecute any alcohol or drug abuse patient.[facility] HospitalIn the event this information is protected by the Federal Confidentiality of Alcohol and Drug Abuse Patient Records regulations: The Federal rules restrict any use of the information to criminally investigate or prosecute any alcohol or drug abuse patient.[facility] HospitalIn the event this information is protected by the Federal Confidentiality of Alcohol and Drug Abuse Patient Records regulations: The Federal rules restrict any use of the information to criminally investigate or prosecute any alcohol or drug abuse patient.[facility] HospitalIn the event this information is protected by the Federal Confidentiality of Alcohol and Drug Abuse Patient Records regulations: The Federal rules restrict any use of the information to criminally investigate or prosecute any alcohol or drug abuse patient.[facility] HospitalIn the event this information is protected by the Federal Confidentiality of Alcohol and Drug Abuse Patient Records regulations: The Federal rules restrict any use of the information to criminally investigate or prosecute any alcohol or drug abuse patient.[facility] HospitalIn the event this information is protected by the Federal Confidentiality of Alcohol and Drug Abuse Patient Records regulations: The Federal rules restrict any use of the information to criminally investigate or prosecute any alcohol or drug abuse patient.[facility] HospitalIn the event this information is protected by the Federal Confidentiality of Alcohol and Drug Abuse Patient Records regulations: The Federal rules restrict any use of the information to criminally investigate or prosecute any alcohol or drug abuse patient.[facility] HospitalIn the event this information is protected by the Federal Confidentiality of Alcohol and Drug Abuse Patient Records regulations: The Federal rules restrict any use of the information to criminally investigate or prosecute any alcohol or drug abuse patient.[facility] HospitalIn the event this information is protected by the Federal Confidentiality of Alcohol and Drug Abuse Patient Records regulations: The Federal rules restrict any use of the information to criminally investigate or prosecute any alcohol or drug abuse patient.[facility] HospitalIn the event this information is protected by the Federal Confidentiality of Alcohol and Drug Abuse Patient Records regulations: The Federal rules restrict any use of the information to criminally investigate or prosecute any alcohol or drug abuse patient.[facility] HospitalIn the event this information is protected by the Federal Confidentiality of Alcohol and Drug Abuse Patient Records regulations: The Federal rules restrict any use of the information to criminally investigate or prosecute any alcohol or drug abuse patient.[facility] HospitalIn the event this information is protected by the Federal Confidentiality of Alcohol and Drug Abuse Patient Records regulations: The Federal rules restrict any use of the information to criminally investigate or prosecute any alcohol or drug abuse patient.[facility] HospitalIn the event this information is protected by the Federal Confidentiality of Alcohol and Drug Abuse Patient Records regulations: The Federal rules restrict any use of the information to criminally investigate or prosecute any alcohol or drug abuse patient.[facility] HospitalIn the event this information is protected by the Federal Confidentiality of Alcohol and Drug Abuse Patient Records regulations: The Federal rules restrict any use of the information to criminally investigate or prosecute any alcohol or drug abuse patient.[facility] HospitalIn the event this information is protected by the Federal Confidentiality of Alcohol and Drug Abuse Patient Records regulations: The Federal rules restrict any use of the information to criminally investigate or prosecute any alcohol or drug abuse patient.[facility] HospitalIn the event this information is protected by the Federal Confidentiality of Alcohol and Drug Abuse Patient Records regulations: The Federal rules restrict any use of the information to criminally investigate or prosecute any alcohol or drug abuse patient.[facility] HospitalIn the event this information is protected by the Federal Confidentiality of Alcohol and Drug Abuse Patient Records regulations: The Federal rules restrict any use of the information to criminally investigate or prosecute any alcohol or drug abuse patient.[facility] HospitalIn the event this information is protected by the Federal Confidentiality of Alcohol and Drug Abuse Patient Records regulations: The Federal rules restrict any use of the information to criminally investigate or prosecute any alcohol or drug abuse patient.[facility] HospitalIn the event this information is protected by the Federal Confidentiality of Alcohol and Drug Abuse Patient Records regulations: The Federal rules restrict any use of the information to criminally investigate or prosecute any alcohol or drug abuse patient.[facility] HospitalIn the event this information is protected by the Federal Confidentiality of Alcohol and Drug Abuse Patient Records regulations: The Federal rules restrict any use of the information to criminally investigate or prosecute any alcohol or drug abuse patient.[facility] HospitalIn the event this information is protected by the Federal Confidentiality of Alcohol and Drug Abuse Patient Records regulations: The Federal rules restrict any use of the information to criminally investigate or prosecute any alcohol or drug abuse patient.[facility] HospitalIn the event this information is protected by the Federal Confidentiality of Alcohol and Drug Abuse Patient Records regulations: The Federal rules restrict any use of the information to criminally investigate or prosecute any alcohol or drug abuse patient.[facility] HospitalIn the event this information is protected by the Federal Confidentiality of Alcohol and Drug Abuse Patient Records regulations: The Federal rules restrict any use of the information to criminally investigate or prosecute any alcohol or drug abuse patient.[facility] HospitalIn the event this information is protected by the Federal Confidentiality of Alcohol and Drug Abuse Patient Records regulations: The Federal rules restrict any use of the information to criminally investigate or prosecute any alcohol or drug abuse patient.[facility] HospitalIn the event this information is protected by the Federal Confidentiality of Alcohol and Drug Abuse Patient Records regulations: The Federal rules restrict any use of the information to criminally investigate or prosecute any alcohol or drug abuse patient.[facility] HospitalIn the event this information is protected by the Federal Confidentiality of Alcohol and Drug Abuse Patient Records regulations: The Federal rules restrict any use of the information to criminally investigate or prosecute any alcohol or drug abuse patient.[facility] HospitalIn the event this information is protected by the Federal Confidentiality of Alcohol and Drug Abuse Patient Records regulations: The Federal rules restrict any use of the information to criminally investigate or prosecute any alcohol or drug abuse patient.[facility] HospitalIn the event this information is protected by the Federal Confidentiality of Alcohol and Drug Abuse Patient Records regulations: The Federal rules restrict any use of the information to criminally investigate or prosecute any alcohol or drug abuse patient.[facility] HospitalIn the event this information is protected by the Federal Confidentiality of Alcohol and Drug Abuse Patient Records regulations: The Federal rules restrict any use of the information to criminally investigate or prosecute any alcohol or drug abuse patient.[facility] HospitalIn the event this information is protected by the Federal Confidentiality of Alcohol and Drug Abuse Patient Records regulations: The Federal rules restrict any use of the information to criminally investigate or prosecute any alcohol or drug abuse patient.[facility] HospitalIn the event this information is protected by the Federal Confidentiality of Alcohol and Drug Abuse Patient Records regulations: The Federal rules restrict any use of the information to criminally investigate or prosecute any alcohol or drug abuse patient.[facility] HospitalIn the event this information is protected by the Federal Confidentiality of Alcohol and Drug Abuse Patient Records regulations: The Federal rules restrict any use of the information to criminally investigate or prosecute any alcohol or drug abuse patient.[facility] HospitalIn the event this information is protected by the Federal Confidentiality of Alcohol and Drug Abuse Patient Records regulations: The Federal rules restrict any use of the information to criminally investigate or prosecute any alcohol or drug abuse patient.[facility] HospitalIn the event this information is protected by the Federal Confidentiality of Alcohol and Drug Abuse Patient Records regulations: The Federal rules restrict any use of the information to criminally investigate or prosecute any alcohol or drug abuse patient.[facility] HospitalIn the event this information is protected by the Federal Confidentiality of Alcohol and Drug Abuse Patient Records regulations: The Federal rules restrict any use of the information to criminally investigate or prosecute any alcohol or drug abuse patient.[facility] HospitalIn the event this information is protected by the Federal Confidentiality of Alcohol and Drug Abuse Patient Records regulations: The Federal rules restrict any use of the information to criminally investigate or prosecute any alcohol or drug abuse patient.[facility] HospitalIn the event this information is protected by the Federal Confidentiality of Alcohol and Drug Abuse Patient Records regulations: The Federal rules restrict any use of the information to criminally investigate or prosecute any alcohol or drug abuse patient.[facility] HospitalIn the event this information is protected by the Federal Confidentiality of Alcohol and Drug Abuse Patient Records regulations: The Federal rules restrict any use of the information to criminally investigate or prosecute any alcohol or drug abuse patient.[facility] HospitalIn the event this information is protected by the Federal Confidentiality of Alcohol and Drug Abuse Patient Records regulations: The Federal rules restrict any use of the information to criminally investigate or prosecute any alcohol or drug abuse patient.[facility] HospitalIn the event this information is protected by the Federal Confidentiality of Alcohol and Drug Abuse Patient Records regulations: The Federal rules restrict any use of the information to criminally investigate or prosecute any alcohol or drug abuse patient.[facility] HospitalIn the event this information is protected by the Federal Confidentiality of Alcohol and Drug Abuse Patient Records regulations: The Federal rules restrict any use of the information to criminally investigate or prosecute any alcohol or drug abuse patient.[facility] HospitalIn the event this information is protected by the Federal Confidentiality of Alcohol and Drug Abuse Patient Records regulations: The Federal rules restrict any use of the information to criminally investigate or prosecute any alcohol or drug abuse patient.[facility] HospitalIn the event this information is protected by the Federal Confidentiality of Alcohol and Drug Abuse Patient Records regulations: The Federal rules restrict any use of the information to criminally investigate or prosecute any alcohol or drug abuse patient.[facility] HospitalIn the event this information is protected by the Federal Confidentiality of Alcohol and Drug Abuse Patient Records regulations: The Federal rules restrict any use of the information to criminally investigate or prosecute any alcohol or drug abuse patient.[facility] HospitalIn the event this information is protected by the Federal Confidentiality of Alcohol and Drug Abuse Patient Records regulations: The Federal rules restrict any use of the information to criminally investigate or prosecute any alcohol or drug abuse patient.[facility] HospitalIn the event this information is protected by the Federal Confidentiality of Alcohol and Drug Abuse Patient Records regulations: The Federal rules restrict any use of the information to criminally investigate or prosecute any alcohol or drug abuse patient.[facility] HospitalIn the event this information is protected by the Federal Confidentiality of Alcohol and Drug Abuse Patient Records regulations: The Federal rules restrict any use of the information to criminally investigate or prosecute any alcohol or drug abuse patient.[facility] HospitalIn the event this information is protected by the Federal Confidentiality of Alcohol and Drug Abuse Patient Records regulations: The Federal rules restrict any use of the information to criminally investigate or prosecute any alcohol or drug abuse patient.[facility] HospitalIn the event this information is protected by the Federal Confidentiality of Alcohol and Drug Abuse Patient Records regulations: The Federal rules restrict any use of the information to criminally investigate or prosecute any alcohol or drug abuse patient.[facility] HospitalIn the event this information is protected by the Federal Confidentiality of Alcohol and Drug Abuse Patient Records regulations: The Federal rules restrict any use of the information to criminally investigate or prosecute any alcohol or drug abuse patient.[facility] HospitalIn the event this information is protected by the Federal Confidentiality of Alcohol and Drug Abuse Patient Records regulations: The Federal rules restrict any use of the information to criminally investigate or prosecute any alcohol or drug abuse patient.[facility] HospitalIn the event this information is protected by the Federal Confidentiality of Alcohol and Drug Abuse Patient Records regulations: The Federal rules restrict any use of the information to criminally investigate or prosecute any alcohol or drug abuse patient.[facility] HospitalIn the event this information is protected by the Federal Confidentiality of Alcohol and Drug Abuse Patient Records regulations: The Federal rules restrict any use of the information to criminally investigate or prosecute any alcohol or drug abuse patient.[facility] HospitalIn the event this information is protected by the Federal Confidentiality of Alcohol and Drug Abuse Patient Records regulations: The Federal rules restrict any use of the information to criminally investigate or prosecute any alcohol or drug abuse patient.[facility] HospitalIn the event this information is protected by the Federal Confidentiality of Alcohol and Drug Abuse Patient Records regulations: The Federal rules restrict any use of the information to criminally investigate or prosecute any alcohol or drug abuse patient.[facility] HospitalIn the event this information is protected by the Federal Confidentiality of Alcohol and Drug Abuse Patient Records regulations: The Federal rules restrict any use of the information to criminally investigate or prosecute any alcohol or drug abuse patient.[facility] HospitalIn the event this information is protected by the Federal Confidentiality of Alcohol and Drug Abuse Patient Records regulations: The Federal rules restrict any use of the information to criminally investigate or prosecute any alcohol or drug abuse patient.[facility] HospitalIn the event this information is protected by the Federal Confidentiality of Alcohol and Drug Abuse Patient Records regulations: The Federal rules restrict any use of the information to criminally investigate or prosecute any alcohol or drug abuse patient.[facility] HospitalIn the event this information is protected by the Federal Confidentiality of Alcohol and Drug Abuse Patient Records regulations: The Federal rules restrict any use of the information to criminally investigate or prosecute any alcohol or drug abuse patient.[facility] HospitalIn the event this information is protected by the Federal Confidentiality of Alcohol and Drug Abuse Patient Records regulations: The Federal rules restrict any use of the information to criminally investigate or prosecute any alcohol or drug abuse patient.[facility] HospitalIn the event this information is protected by the Federal Confidentiality of Alcohol and Drug Abuse Patient Records regulations: The Federal rules restrict any use of the information to criminally investigate or prosecute any alcohol or drug abuse patient.[facility] HospitalIn the event this information is protected by the Federal Confidentiality of Alcohol and Drug Abuse Patient Records regulations: The Federal rules restrict any use of the information to criminally investigate or prosecute any alcohol or drug abuse patient.[facility] HospitalIn the event this information is protected by the Federal Confidentiality of Alcohol and Drug Abuse Patient Records regulations: The Federal rules restrict any use of the information to criminally investigate or prosecute any alcohol or drug abuse patient.[facility] HospitalIn the event this information is protected by the Federal Confidentiality of Alcohol and Drug Abuse Patient Records regulations: The Federal rules restrict any use of the information to criminally investigate or prosecute any alcohol or drug abuse patient.[facility] HospitalIn the event this information is protected by the Federal Confidentiality of Alcohol and Drug Abuse Patient Records regulations: The Federal rules restrict any use of the information to criminally investigate or prosecute any alcohol or drug abuse patient.[facility] HospitalIn the event this information is protected by the Federal Confidentiality of Alcohol and Drug Abuse Patient Records regulations: The Federal rules restrict any use of the information to criminally investigate or prosecute any alcohol or drug abuse patient.[facility] HospitalIn the event this information is protected by the Federal Confidentiality of Alcohol and Drug Abuse Patient Records regulations: The Federal rules restrict any use of the information to criminally investigate or prosecute any alcohol or drug abuse patient.[facility] HospitalIn the event this information is protected by the Federal Confidentiality of Alcohol and Drug Abuse Patient Records regulations: The Federal rules restrict any use of the information to criminally investigate or prosecute any alcohol or drug abuse patient.[facility] HospitalIn the event this information is protected by the Federal Confidentiality of Alcohol and Drug Abuse Patient Records regulations: The Federal rules restrict any use of the information to criminally investigate or prosecute any alcohol or drug abuse patient.[facility] HospitalIn the event this information is protected by the Federal Confidentiality of Alcohol and Drug Abuse Patient Records regulations: The Federal rules restrict any use of the information to criminally investigate or prosecute any alcohol or drug abuse patient.[facility] HospitalIn the event this information is protected by the Federal Confidentiality of Alcohol and Drug Abuse Patient Records regulations: The Federal rules restrict any use of the information to criminally investigate or prosecute any alcohol or drug abuse patient.[facility] HospitalIn the event this information is protected by the Federal Confidentiality of Alcohol and Drug Abuse Patient Records regulations: The Federal rules restrict any use of the information to criminally investigate or prosecute any alcohol or drug abuse patient.[facility] HospitalIn the event this information is protected by the Federal Confidentiality of Alcohol and Drug Abuse Patient Records regulations: The Federal rules restrict any use of the information to criminally investigate or prosecute any alcohol or drug abuse patient.[facility] HospitalIn the event this information is protected by the Federal Confidentiality of Alcohol and Drug Abuse Patient Records regulations: The Federal rules restrict any use of the information to criminally investigate or prosecute any alcohol or drug abuse patient.[facility] HospitalIn the event this information is protected by the Federal Confidentiality of Alcohol and Drug Abuse Patient Records regulations: The Federal rules restrict any use of the information to criminally investigate or prosecute any alcohol or drug abuse patient.[facility] HospitalIn the event this information is protected by the Federal Confidentiality of Alcohol and Drug Abuse Patient Records regulations: The Federal rules restrict any use of the information to criminally investigate or prosecute any alcohol or drug abuse patient.[facility] HospitalIn the event this information is protected by the Federal Confidentiality of Alcohol and Drug Abuse Patient Records regulations: The Federal rules restrict any use of the information to criminally investigate or prosecute any alcohol or drug abuse patient.[facility] HospitalIn the event this information is protected by the Federal Confidentiality of Alcohol and Drug Abuse Patient Records regulations: The Federal rules restrict any use of the information to criminally investigate or prosecute any alcohol or drug abuse patient.[facility] HospitalIn the event this information is protected by the Federal Confidentiality of Alcohol and Drug Abuse Patient Records regulations: The Federal rules restrict any use of the information to criminally investigate or prosecute any alcohol or drug abuse patient.[facility] HospitalIn the event this information is protected by the Federal Confidentiality of Alcohol and Drug Abuse Patient Records regulations: The Federal rules restrict any use of the information to criminally investigate or prosecute any alcohol or drug abuse patient.[facility] HospitalIn the event this information is protected by the Federal Confidentiality of Alcohol and Drug Abuse Patient Records regulations: The Federal rules restrict any use of the information to criminally investigate or prosecute any alcohol or drug abuse patient.[facility] HospitalIn the event this information is protected by the Federal Confidentiality of Alcohol and Drug Abuse Patient Records regulations: The Federal rules restrict any use of the information to criminally investigate or prosecute any alcohol or drug abuse patient.[facility] HospitalIn the event this information is protected by the Federal Confidentiality of Alcohol and Drug Abuse Patient Records regulations: The Federal rules restrict any use of the information to criminally investigate or prosecute any alcohol or drug abuse patient.[facility] HospitalIn the event this information is protected by the Federal Confidentiality of Alcohol and Drug Abuse Patient Records regulations: The Federal rules restrict any use of the information to criminally investigate or prosecute any alcohol or drug abuse patient.[facility] HospitalIn the event this information is protected by the Federal Confidentiality of Alcohol and Drug Abuse Patient Records regulations: The Federal rules restrict any use of the information to criminally investigate or prosecute any alcohol or drug abuse patient.[facility] HospitalIn the event this information is protected by the Federal Confidentiality of Alcohol and Drug Abuse Patient Records regulations: The Federal rules restrict any use of the information to criminally investigate or prosecute any alcohol or drug abuse patient.[facility] HospitalIn the event this information is protected by the Federal Confidentiality of Alcohol and Drug Abuse Patient Records regulations: The Federal rules restrict any use of the information to criminally investigate or prosecute any alcohol or drug abuse patient.[facility] HospitalIn the event this information is protected by the Federal Confidentiality of Alcohol and Drug Abuse Patient Records regulations: The Federal rules restrict any use of the information to criminally investigate or prosecute any alcohol or drug abuse patient.[facility] HospitalIn the event this information is protected by the Federal Confidentiality of Alcohol and Drug Abuse Patient Records regulations: The Federal rules restrict any use of the information to criminally investigate or prosecute any alcohol or drug abuse patient.[facility] HospitalIn the event this information is protected by the Federal Confidentiality of Alcohol and Drug Abuse Patient Records regulations: The Federal rules restrict any use of the information to criminally investigate or prosecute any alcohol or drug abuse patient.[facility] HospitalIn the event this information is protected by the Federal Confidentiality of Alcohol and Drug Abuse Patient Records regulations: The Federal rules restrict any use of the information to criminally investigate or prosecute any alcohol or drug abuse patient.[facility] HospitalIn the event this information is protected by the Federal Confidentiality of Alcohol and Drug Abuse Patient Records regulations: The Federal rules restrict any use of the information to criminally investigate or prosecute any alcohol or drug abuse patient.[facility] HospitalIn the event this information is protected by the Federal Confidentiality of Alcohol and Drug Abuse Patient Records regulations: The Federal rules restrict any use of the information to criminally investigate or prosecute any alcohol or drug abuse patient.[facility] HospitalIn the event this information is protected by the Federal Confidentiality of Alcohol and Drug Abuse Patient Records regulations: The Federal rules restrict any use of the information to criminally investigate or prosecute any alcohol or drug abuse patient.[facility] HospitalIn the event this information is protected by the Federal Confidentiality of Alcohol and Drug Abuse Patient Records regulations: The Federal rules restrict any use of the information to criminally investigate or prosecute any alcohol or drug abuse patient.[facility] HospitalIn the event this information is protected by the Federal Confidentiality of Alcohol and Drug Abuse Patient Records regulations: The Federal rules restrict any use of the information to criminally investigate or prosecute any alcohol or drug abuse patient.[facility] HospitalIn the event this information is protected by the Federal Confidentiality of Alcohol and Drug Abuse Patient Records regulations: The Federal rules restrict any use of the information to criminally investigate or prosecute any alcohol or drug abuse patient.[facility] HospitalIn the event this information is protected by the Federal Confidentiality of Alcohol and Drug Abuse Patient Records regulations: The Federal rules restrict any use of the information to criminally investigate or prosecute any alcohol or drug abuse patient.[facility] HospitalIn the event this information is protected by the Federal Confidentiality of Alcohol and Drug Abuse Patient Records regulations: The Federal rules restrict any use of the information to criminally investigate or prosecute any alcohol or drug abuse patient.[facility] HospitalIn the event this information is protected by the Federal Confidentiality of Alcohol and Drug Abuse Patient Records regulations: The Federal rules restrict any use of the information to criminally investigate or prosecute any alcohol or drug abuse patient.[facility] HospitalIn the event this information is protected by the Federal Confidentiality of Alcohol and Drug Abuse Patient Records regulations: The Federal rules restrict any use of the information to criminally investigate or prosecute any alcohol or drug abuse patient.[facility] HospitalIn the event this information is protected by the Federal Confidentiality of Alcohol and Drug Abuse Patient Records regulations: The Federal rules restrict any use of the information to criminally investigate or prosecute any alcohol or drug abuse patient.[facility] HospitalIn the event this information is protected by the Federal Confidentiality of Alcohol and Drug Abuse Patient Records regulations: The Federal rules restrict any use of the information to criminally investigate or prosecute any alcohol or drug abuse patient.[facility] HospitalIn the event this information is protected by the Federal Confidentiality of Alcohol and Drug Abuse Patient Records regulations: The Federal rules restrict any use of the information to criminally investigate or prosecute any alcohol or drug abuse patient.[facility] HospitalIn the event this information is protected by the Federal Confidentiality of Alcohol and Drug Abuse Patient Records regulations: The Federal rules restrict any use of the information to criminally investigate or prosecute any alcohol or drug abuse patient.[facility] HospitalIn the event this information is protected by the Federal Confidentiality of Alcohol and Drug Abuse Patient Records regulations: The Federal rules restrict any use of the information to criminally investigate or prosecute any alcohol or drug abuse patient.[facility] HospitalIn the event this information is protected by the Federal Confidentiality of Alcohol and Drug Abuse Patient Records regulations: The Federal rules restrict any use of the information to criminally investigate or prosecute any alcohol or drug abuse patient.[facility] HospitalIn the event this information is protected by the Federal Confidentiality of Alcohol and Drug Abuse Patient Records regulations: The Federal rules restrict any use of the information to criminally investigate or prosecute any alcohol or drug abuse patient.[facility] HospitalIn the event this information is protected by the Federal Confidentiality of Alcohol and Drug Abuse Patient Records regulations: The Federal rules restrict any use of the information to criminally investigate or prosecute any alcohol or drug abuse patient.[facility] HospitalIn the event this information is protected by the Federal Confidentiality of Alcohol and Drug Abuse Patient Records regulations: The Federal rules restrict any use of the information to criminally investigate or prosecute any alcohol or drug abuse patient.[facility] HospitalIn the event this information is protected by the Federal Confidentiality of Alcohol and Drug Abuse Patient Records regulations: The Federal rules restrict any use of the information to criminally investigate or prosecute any alcohol or drug abuse patient.[facility] HospitalIn the event this information is protected by the Federal Confidentiality of Alcohol and Drug Abuse Patient Records regulations: The Federal rules restrict any use of the information to criminally investigate or prosecute any alcohol or drug abuse patient.[facility] HospitalIn the event this information is protected by the Federal Confidentiality of Alcohol and Drug Abuse Patient Records regulations: The Federal rules restrict any use of the information to criminally investigate or prosecute any alcohol or drug abuse patient.[facility] HospitalIn the event this information is protected by the Federal Confidentiality of Alcohol and Drug Abuse Patient Records regulations: The Federal rules restrict any use of the information to criminally investigate or prosecute any alcohol or drug abuse patient.[facility] HospitalIn the event this information is protected by the Federal Confidentiality of Alcohol and Drug Abuse Patient Records regulations: The Federal rules restrict any use of the information to criminally investigate or prosecute any alcohol or drug abuse patient.[facility] HospitalIn the event this information is protected by the Federal Confidentiality of Alcohol and Drug Abuse Patient Records regulations: The Federal rules restrict any use of the information to criminally investigate or prosecute any alcohol or drug abuse patient.[facility] HospitalIn the event this information is protected by the Federal Confidentiality of Alcohol and Drug Abuse Patient Records regulations: The Federal rules restrict any use of the information to criminally investigate or prosecute any alcohol or drug abuse patient.[facility] HospitalIn the event this information is protected by the Federal Confidentiality of Alcohol and Drug Abuse Patient Records regulations: The Federal rules restrict any use of the information to criminally investigate or prosecute any alcohol or drug abuse patient.[facility] HospitalIn the event this information is protected by the Federal Confidentiality of Alcohol and Drug Abuse Patient Records regulations: The Federal rules restrict any use of the information to criminally investigate or prosecute any alcohol or drug abuse patient.[facility] HospitalIn the event this information is protected by the Federal Confidentiality of Alcohol and Drug Abuse Patient Records regulations: The Federal rules restrict any use of the information to criminally investigate or prosecute any alcohol or drug abuse patient.[facility] HospitalIn the event this information is protected by the Federal Confidentiality of Alcohol and Drug Abuse Patient Records regulations: The Federal rules restrict any use of the information to criminally investigate or prosecute any alcohol or drug abuse patient.[facility] HospitalIn the event this information is protected by the Federal Confidentiality of Alcohol and Drug Abuse Patient Records regulations: The Federal rules restrict any use of the information to criminally investigate or prosecute any alcohol or drug abuse patient.[facility] HospitalIn the event this information is protected by the Federal Confidentiality of Alcohol and Drug Abuse Patient Records regulations: The Federal rules restrict any use of the information to criminally investigate or prosecute any alcohol or drug abuse patient.[facility] HospitalIn the event this information is protected by the Federal Confidentiality of Alcohol and Drug Abuse Patient Records regulations: The Federal rules restrict any use of the information to criminally investigate or prosecute any alcohol or drug abuse patient.[facility] HospitalIn the event this information is protected by the Federal Confidentiality of Alcohol and Drug Abuse Patient Records regulations: The Federal rules restrict any use of the information to criminally investigate or prosecute any alcohol or drug abuse patient.[facility] HospitalIn the event this information is protected by the Federal Confidentiality of Alcohol and Drug Abuse Patient Records regulations: The Federal rules restrict any use of the information to criminally investigate or prosecute any alcohol or drug abuse patient.[facility] HospitalIn the event this information is protected by the Federal Confidentiality of Alcohol and Drug Abuse Patient Records regulations: The Federal rules restrict any use of the information to criminally investigate or prosecute any alcohol or drug abuse patient.[facility] HospitalIn the event this information is protected by the Federal Confidentiality of Alcohol and Drug Abuse Patient Records regulations: The Federal rules restrict any use of the information to criminally investigate or prosecute any alcohol or drug abuse patient.[facility] HospitalIn the event this information is protected by the Federal Confidentiality of Alcohol and Drug Abuse Patient Records regulations: The Federal rules restrict any use of the information to criminally investigate or prosecute any alcohol or drug abuse patient.[facility] HospitalIn the event this information is protected by the Federal Confidentiality of Alcohol and Drug Abuse Patient Records regulations: The Federal rules restrict any use of the information to criminally investigate or prosecute any alcohol or drug abuse patient.[facility] HospitalIn the event this information is protected by the Federal Confidentiality of Alcohol and Drug Abuse Patient Records regulations: The Federal rules restrict any use of the information to criminally investigate or prosecute any alcohol or drug abuse patient.[facility] HospitalIn the event this information is protected by the Federal Confidentiality of Alcohol and Drug Abuse Patient Records regulations: The Federal rules restrict any use of the information to criminally investigate or prosecute any alcohol or drug abuse patient.[facility] HospitalIn the event this information is protected by the Federal Confidentiality of Alcohol and Drug Abuse Patient Records regulations: The Federal rules restrict any use of the information to criminally investigate or prosecute any alcohol or drug abuse patient.[facility] HospitalIn the event this information is protected by the Federal Confidentiality of Alcohol and Drug Abuse Patient Records regulations: The Federal rules restrict any use of the information to criminally investigate or prosecute any alcohol or drug abuse patient.[facility] HospitalIn the event this information is protected by the Federal Confidentiality of Alcohol and Drug Abuse Patient Records regulations: The Federal rules restrict any use of the information to criminally investigate or prosecute any alcohol or drug abuse patient.[facility] HospitalIn the event this information is protected by the Federal Confidentiality of Alcohol and Drug Abuse Patient Records regulations: The Federal rules restrict any use of the information to criminally investigate or prosecute any alcohol or drug abuse patient.[facility] HospitalIn the event this information is protected by the Federal Confidentiality of Alcohol and Drug Abuse Patient Records regulations: The Federal rules restrict any use of the information to criminally investigate or prosecute any alcohol or drug abuse patient.[facility] HospitalIn the event this information is protected by the Federal Confidentiality of Alcohol and Drug Abuse Patient Records regulations: The Federal rules restrict any use of the information to criminally investigate or prosecute any alcohol or drug abuse patient.[facility] HospitalIn the event this information is protected by the Federal Confidentiality of Alcohol and Drug Abuse Patient Records regulations: The Federal rules restrict any use of the information to criminally investigate or prosecute any alcohol or drug abuse patient.[facility] HospitalIn the event this information is protected by the Federal Confidentiality of Alcohol and Drug Abuse Patient Records regulations: The Federal rules restrict any use of the information to criminally investigate or prosecute any alcohol or drug abuse patient.[facility] HospitalIn the event this information is protected by the Federal Confidentiality of Alcohol and Drug Abuse Patient Records regulations: The Federal rules restrict any use of the information to criminally investigate or prosecute any alcohol or drug abuse patient.[facility] HospitalIn the event this information is protected by the Federal Confidentiality of Alcohol and Drug Abuse Patient Records regulations: The Federal rules restrict any use of the information to criminally investigate or prosecute any alcohol or drug abuse patient.[facility] HospitalIn the event this information is protected by the Federal Confidentiality of Alcohol and Drug Abuse Patient Records regulations: The Federal rules restrict any use of the information to criminally investigate or prosecute any alcohol or drug abuse patient.[facility] HospitalIn the event this information is protected by the Federal Confidentiality of Alcohol and Drug Abuse Patient Records regulations: The Federal rules restrict any use of the information to criminally investigate or prosecute any alcohol or drug abuse patient.[facility] HospitalIn the event this information is protected by the Federal Confidentiality of Alcohol and Drug Abuse Patient Records regulations: The Federal rules restrict any use of the information to criminally investigate or prosecute any alcohol or drug abuse patient.[facility] HospitalIn the event this information is protected by the Federal Confidentiality of Alcohol and Drug Abuse Patient Records regulations: The Federal rules restrict any use of the information to criminally investigate or prosecute any alcohol or drug abuse patient.[facility] HospitalIn the event this information is protected by the Federal Confidentiality of Alcohol and Drug Abuse Patient Records regulations: The Federal rules restrict any use of the information to criminally investigate or prosecute any alcohol or drug abuse patient.[facility] HospitalIn the event this information is protected by the Federal Confidentiality of Alcohol and Drug Abuse Patient Records regulations: The Federal rules restrict any use of the information to criminally investigate or prosecute any alcohol or drug abuse patient.[facility] HospitalIn the event this information is protected by the Federal Confidentiality of Alcohol and Drug Abuse Patient Records regulations: The Federal rules restrict any use of the information to criminally investigate or prosecute any alcohol or drug abuse patient.[facility] HospitalIn the event this information is protected by the Federal Confidentiality of Alcohol and Drug Abuse Patient Records regulations: The Federal rules restrict any use of the information to criminally investigate or prosecute any alcohol or drug abuse patient.[facility] HospitalIn the event this information is protected by the Federal Confidentiality of Alcohol and Drug Abuse Patient Records regulations: The Federal rules restrict any use of the information to criminally investigate or prosecute any alcohol or drug abuse patient.[facility] HospitalIn the event this information is protected by the Federal Confidentiality of Alcohol and Drug Abuse Patient Records regulations: The Federal rules restrict any use of the information to criminally investigate or prosecute any alcohol or drug abuse patient.[facility] HospitalIn the event this information is protected by the Federal Confidentiality of Alcohol and Drug Abuse Patient Records regulations: The Federal rules restrict any use of the information to criminally investigate or prosecute any alcohol or drug abuse patient.[facility] HospitalIn the event this information is protected by the Federal Confidentiality of Alcohol and Drug Abuse Patient Records regulations: The Federal rules restrict any use of the information to criminally investigate or prosecute any alcohol or drug abuse patient.[facility] HospitalIn the event this information is protected by the Federal Confidentiality of Alcohol and Drug Abuse Patient Records regulations: The Federal rules restrict any use of the information to criminally investigate or prosecute any alcohol or drug abuse patient.[facility] HospitalIn the event this information is protected by the Federal Confidentiality of Alcohol and Drug Abuse Patient Records regulations: The Federal rules restrict any use of the information to criminally investigate or prosecute any alcohol or drug abuse patient.[facility] HospitalIn the event this information is protected by the Federal Confidentiality of Alcohol and Drug Abuse Patient Records regulations: The Federal rules restrict any use of the information to criminally investigate or prosecute any alcohol or drug abuse patient.[facility] HospitalIn the event this information is protected by the Federal Confidentiality of Alcohol and Drug Abuse Patient Records regulations: The Federal rules restrict any use of the information to criminally investigate or prosecute any alcohol or drug abuse patient.[facility] HospitalIn the event this information is protected by the Federal Confidentiality of Alcohol and Drug Abuse Patient Records regulations: The Federal rules restrict any use of the information to criminally investigate or prosecute any alcohol or drug abuse patient.[facility] Reason for Visit (unrecogniz ed section [...] HIGH MDM 60-74 MINUTES Bill Woods PA-C [address] [place] [address] Referral ID Status Reason Start Date Expiration Date Visits Requested Visits Authorized [id number] Pending Review PCP Requested Referral 07/29/2022 07/29/2023 1 1 Reason Comments Results Reason Onset Date Comments [facility] - Medication Refill 09/23/2022 Kesimpta Reason Comments [facility] Reason Comments New [...] Reason Comments New Patient Sent over by neurolo gist. Hx neck surgery Mar 02, 2016. Neck pain X since 2015, the surgery. Mid back pain X 1 year. 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 Procedures [facility]ULT TO [facility] OFFICE/OUTPATIENT [facility] MDM 60-74 MINUTES Bill Woods PA-C [address] [place] [address] Referral ID Status Reason Start Date Expiration Date V isits Requested Visits Authorized [id number] Closed PCP Requested Referral 08/27/2022 08/27/2023 1 1 Reason Comments Patient Update Reason Comments New Patient Evaluation Specialty Diagnoses / Procedures Referred By Louise t Referred To Contact Diagnoses Sleep apnea, unspecified type Procedures CONSULT TO SLEEP MEDICINE - ADULT OFFICE/OUTPATIENT [facility] MDM 60-74 MINUTES Bill Woods PA-C [address] [place] [address] Referral ID Status Reason Start Date Expiration Date Visits Requested Visits Authorized [id number] Pending Review PCP Requested Referral 12/03/2022 12/03/2023 1 1 Reason Comments New Patient Specialty Diagnoses / Procedures Referred By Contcarmelo t Referred To Contact Dermatology Diagnoses Lesion of skin of face Skin sore Procedures CONSULT TO DERMATOLOGY OFFICE/OUTPATIENT [facility] MDM 60-74 MINUTES Bill Woods PA-C [address] [place] [address] Referral ID Status Reason Start Date Expiration Date V isits Requested Visits Authorized [id number] Closed PCP Requested Referral 01/14/2023 01/14/2024 1 1 Reason Comments Refill Request Reason Comments Consult Reason Comments Patient Question Reason Comments Referral Information Outcome of NMSS Ref erral Reason Onset Date Comments [facility] - Medication Refill 02/13/2023 Kesimpta Reason Comments Follow Up Specialty Diagnoses / Procedures Referred By Louise mayo Referred To Contact [facility] IMAGING Diagnoses Multiple sclerosis (HCC) Procedures MRI BRAIN WO/W IVCON MRI BRAIN BRAIN STEM W/O W/CONTRAST MATERIAL Bill Woods PA-C [address] [place] [address] [facility] [place] [id number] Referral ID Status Reason Start Date Expiration Date V isits Requested Visits Authorized [id number] Closed Auto-Generate d Referral 10/02/2021 11/01/2022 1 [...] Update Specialty Diagnoses / Procedures Referred By Louise mayo Referred To Contact Pain Management / PAIN MANAGEMENT Diagnoses Myofascial pain Myofascial neck pain Tight unbalanced muscles TPI Procedures TRIGGER POINT INJECTION MULTI 3+ MUSCLE GRP TRIGGER POINT INJECTION Heather Davis MD [address] [place] [address] Heather Davis MD [address] [place] [address] Referral ID Status Reason Start Date Expiration Date Visits Re quested Visits Authorized [id number] Closed 04/03/2023 07/02/2023 1 1 Reason Comments Established Patient Medication Update Specialty Diagnoses / Procedures Referred By Contac t Referred To Contact Pain Management / PAIN MANAGEMENT Diagnoses Myofascial pain Abnormal posture Abnormal increased muscle tightness tpi Procedures TRIGGER POINT INJECTION MULTI 3+ MUSCLE GRP TRIGGER POINT INJECTION Heather Davis MD [address] [place] [address] Heather Davis MD [address] [place] [place] [address] Referral ID Status Reason Start Date Expiration Date Visits Re quested Visits Authorized [id number] Closed 05/29/2023 04/26/2024 1 1 Reason Onset Date Comments Refill Request 07/09/2023 Reason Onset Date Comments SPP Neurology - Medication Refill 07/22/2023 Kesimpta Specialty Diagnoses / Procedures Referred By Contac t Referred To Contact MR IMAGING Diagnoses Chronic midline low back pain without sciatica Procedures MRI LUMBAR SPINE WO IVCON MRI SPINAL CANAL LUMBAR W/O CONTRAST MATERIAL Meka Webb MD [address] [place] [address] Mr [facility] [place] [address] Referral ID Status Reason Start Date Expiration Date V isits Requested Visits Authorized [id number] Closed Auto-Generate d Referral 04/13/2023 05/12/2024 1 [...] GRP TRIGGER POINT INJECTION Heather Davis MD [address] [place] [address] Heather Davis MD [address] [place] [address] Referral ID Status Reason Start Date Expiration Date Visits Re quested Visits Authorized [id number] Closed 08/11/2023 11/09/2023 1 1 Reason Comments Symptoms Slurred speech Reason Comments type 2 diabetes Reason Comments Orders [facility] order Reason Onset Date Comments SPP Neurology - Medication Refill 08/24/2023 Kesimpta Reason Onset Date Comments Refill Request 08/28/2023 Reason Comments Patient Update Pt calling to follow up with her Bobjacques with Coordinator Reason Comments Patient Question Patient has MS relat ed questions Reason Comments DWO Form Specialty Diagnoses / Procedures Referred By Contac t Referred To Contact MR IMAGING Diagnoses Thoracic myelopathy History of multiple sclerosis (HCC) Procedures MRI THORACIC SPINE WO/W IVCON MRI SPINAL CANAL THORACIC W/O & W/CONTR MATRL Meka Webb MD [address] [place] [address] Mr Imaging [place] [address] Referral ID Status Reason Start Date Expiration Date V isits Requested Visits Authorized [id number] Closed Auto-Generate d Referral 09/15/2023 10/14/2024 1 1 Specialty Diagnoses / Procedures Referred By Contac t Referred To Contact Pain Management / PAIN MANAGEMENT Diagnoses Multiple sclerosis Myalgia, other site tpi Procedures TRIGGER POINT INJECTION MULTI 3+ MUSCLE GRP TRIGGER POINT INJECTION muliple areas leg pain Heather Davis MD [address] [place] [id number] Heather Davis MD [address] [place] [address] Referral ID Status Reason Start Date Expiration Date Visits Re quested Visits Authorized [id number] Closed 08/24/2023 04/26/2024 1 1 Reason Comments [...] HIGH MDM 60 MINUTES Meka Webb MD [address] [place] [address] Referral ID Status Reason Start Date Expiration Date V isits Requested Visits Authorized [id number] Closed PCP Requested Referral 10/28/2023 10/27/2024 1 1 Specialty Diagnoses / Procedures Referred By Contac t Referred To Contact CT IMAGING Diagnoses Thoracic myelopathy Procedures CT THORACIC SPINE WO IVCON CT THORACIC SPINE W/O CONTRAST MATERIAL Javier Rogers MD [address] [place] [address] Ct Imaging [place] [address] Referral ID Status Reason Start Date Expiration Date V isits Requested Visits Authorized [id number] Closed Auto-Generate d Referral 11/27/2023 12/26/2024 1 1 Specialty Diagnoses / Procedures Referred By Contac t Referred To Contact Pain Management / PAIN MANAGEMENT Diagnoses Myofascial pain Other chronic pain Myofascial pain syndrome of lumbar spine TPI - 40 mins - medication encounter, status update, and TPIs Procedures TRIGGER POINT INJECTION MULTI 3+ MUSCLE GRP TRIGGER POINT INJECTION Heather Davis MD [facility] [place] [address] Heather Davis MD [address] [place] [address] Referral ID Status Reason Start Date Expiration Date Visits Re quested Visits Authorized [id number] Closed 11/16/2023 04/26/2024 1 1 Reason Comments [...] W/O & W/CONTRAST Jake Gay MD, PhD [address] [place] [address] [place] [address] [place] [id number] Referral ID Status Reason Start Date Expiration Date V isits Requested Visits Authorized [id number] Closed Auto-Generate d Referral 12/05/2022 01/04/2024 1 [...] check Reason Comments Returning Patient's Call Notified patifermin mayo that refill on Oxycodone was sent to [facility]. Jazlyn Bermudez LPN Reason Comments Established Patient Follow-Up Reason [...] Expiration Date Visits Re quested Visits Authorized [id number] Closed 11/10/2023 04/26/2024 1 1 Reason Onset Date Comments Refill Request 04/12/2024 Reason Comments MS Non-exudative ARMD Both Eyes Diabetes Reason Comments Patient Question Oxycodone refill Reason Comments Non-insulin Dependent Diabetes Mellitus Reason Onset Date Comments Refill Request 07/08/2024 Reason Comments Orders [facility] Reason Comments Appointment Call went right to jonna de leon left message regarding MyChart message requesting appointment with Bill Woods. Included in message was [place] number for call back and notification of [...] Patient Follow Up Reason Comments Appointment Left voicemail duane ashley scheduling Neuropysch testing and follow up in late September/early October respectively. [place] number included for call back. Reason Comments [...] Care Teams (unrecognized sec tion and content) Buffing Wheel Presser Relationship Specialty Start Date End Date Kaylah Sherman MD [facility] [address] [place] [address] PCP - General Internal Medicine 03/28/20 Buffing Wheel Presser Relationship Specialty Start Date End Date Kaylah Sherman MD [facility] [address] [place] [address] PCP - General Internal Medicine 03/28/20 Buffing Wheel Presser Relationship Specialty Start Date End Date Kaylah Sherman MD [facility] [address] [place] [address] PCP - General Internal Medicine 03/28/20 Buffing Wheel Presser Relationship Specialty Start Date End Date Kaylah Sherman MD [facility] [address] [place] [address] PCP - General Internal Medicine 03/28/20 Buffing Wheel Presser Relationship Specialty Start Date End Date Kaylah Sherman MD [facility] [address] [place] [address] PCP - General Internal Medicine 03/28/20 Buffing Wheel Presser Relationship Specialty Start Date End Date Kaylah Sherman MD [facility] [address] [place] [address] PCP - General Internal Medicine 03/28/20 Elias Butler S [address] [place] [address] Major Assembly Lineman Cardiology 11/15/21 Buffing Wheel Presser Relationship Specialty Start Date End Date Kaylah Sherman MD [facility] [address] [place] [address] PCP - General Internal Medicine 03/28/20 Elias Butler S [address] [address] Major Assembly Lineman Cardiology 11/15/21 Buffing Wheel Presser Relationship Specialty Start Date End Date Kaylah Sherman MD [facility] [address] [place] [address] PCP - General Internal Medicine 03/28/20 Elias uBtler S [address] [address] Major Assembly Lineman Cardiology 11/15/21 Buffing Wheel Presser Relationship Specialty Start Date End Date Kaylah Sherman MD [facility] [address] [place] [address] PCP - General Internal Medicine 03/28/20 Carrie, Elias S [address] [address] Major Assembly Lineman Cardiology 11/15/21 Buffing Wheel Presser Relationship Specialty Start Date End Date Kaylah Sherman MD [facility] [address] [place] [address] PCP - General Internal Medicine 03/28/20 Carrie, Elias S [address] [address] Major Assembly Lineman Cardiology 11/15/21 Buffing Wheel Presser Relationship Specialty Start Date End Date Kaylah Sherman MD [facility] [address] [place] [address] PCP - General Internal Medicine 03/28/20 Carrie, Elias S [address] [address] Major Assembly Lineman Cardiology 11/15/21 Buffing Wheel Presser Relationship Specialty Start Date End Date Kaylah Sherman MD [facility] [address] [place] [address] PCP - General Internal Medicine 03/28/20 Carrie, Elias S [address] [address] Major Assembly Lineman Cardiology 11/15/21 Buffing Wheel Presser Relationship Specialty Start Date End Date Kaylah Sherman MD [facility] [address] [place] [address] PCP - General Internal Medicine 03/28/20 Carrie, Elias S [address] [place] [address] Major Assembly Lineman Cardiology 11/15/21 Buffing Wheel Presser Relationship Specialty Start Date End Date Tom Sherman MD [address] [place] [address] PCP - General Internal Medicine 08/06/22 Carrie, [place] S [address] [place] [address] Major Assembly Lineman Cardiology 11/15/21 Buffing Wheel Presser Relationship Specialty Start Date End Date Tom Sherman MD [address] [place] [address] PCP - General Internal Medicine 08/06/22 Carrie, Elias S [address] [place] [address] Major Assembly Lineman Cardiology 11/15/21 Buffing Wheel Presser Relationship Specialty Start Date End Date Tom Sherman MD [address] [place] [address] PCP - General Internal Medicine 08/06/22 Carrie, Elias S [address] [place] [address] Major Assembly Lineman Cardiology 11/15/21 Buffing Wheel Presser Relationship Specialty Start Date End Date Tom Sherman MD [address] [place] [address] PCP - General Internal Medicine 08/06/22 Carrie, Elias S [address] [place] [address] Major Assembly Lineman Cardiology 11/15/21 Buffing Wheel Presser Relationship Specialty Start Date End Date Tom Sherman MD [address] [place] [address] PCP - General Internal Medicine 08/06/22 Carrie, [place] S [address] [place] [address] Major Assembly Lineman Cardiology 11/15/21 Buffing Wheel Presser Relationship Specialty Start Date End Date Tom Sherman MD [address] [place] [address] PCP - General Internal Medicine 08/06/22 Carrie, [place] S [address] [place] [address] Major Assembly Lineman Cardiology 11/15/21 Buffing Wheel Presser Relationship Specialty Start Date End Date Tom Sherman MD [address] [place] [address] PCP - General Internal Medicine 08/06/22 Carrie, [place] S [address] [place] [address] Major Assembly Lineman Cardiology 11/15/21 Buffing Wheel Presser Relationship Specialty Start Date End Date Tom Sherman MD [address] [place] [address] PCP - General Internal Medicine 08/06/22 Carrie, [place] S [address] [place] [address] Major Assembly Lineman Cardiology 11/15/21 Buffing Wheel Presser Relationship Specialty Start Date End Date Tom Sherman MD [address] [place] [address] PCP - General Internal Medicine 08/06/22 11/04/22 Carrie, [place] S [address] [place] [address] Major Assembly Lineman Cardiology 11/15/21 Buffing Wheel Presser Relationship Specialty Start Date End Date Melodie Marina [address] [place] [address] PCP - General 11/05/22 Carrie, Elias S [address] [place] [address] Major Assembly Lineman Cardiology 11/15/21 Buffing Wheel Presser Relationship Specialty Start Date End Date Melodie Marina [place] [address] PCP - General 11/05/22 Carrie, Elias S [address] [place] [address] Major Assembly Lineman Cardiology 11/15/21 Buffing Wheel Presser Relationship Specialty Start Date End Date Melodie Marina[address] [place] [address] PCP - General 11/05/22 Carrie, Elias S [address] [place] [address] Major Assembly Lineman Cardiology 11/15/21 Buffing Wheel Presser Relationship Specialty Start Date End Date Melodie Marina[address] [place] [address] PCP - General 11/05/22 Carrie, Elais S [address] [place] [address] Major Assembly Lineman Cardiology 11/15/21 Buffing Wheel Presser Relationship Specialty Start Date End Date Melodie Marina [address] [place] [address] PCP - General 11/05/22 Carrie, Elias S [address] [place] [address] Major Assembly Lineman Cardiology 11/15/21 Buffing Wheel Presser Relationship Specialty Start Date End Date Melodie Marina [place] [address] PCP - General 11/05/22 Carrie, [place] S [address] [place] [address] Major Assembly Lineman Cardiology 11/15/21 Buffing Wheel Presser Relationship Specialty Start Date End Date Melodie Marina [place] [address] PCP - General 11/05/22 Carrie, Elias S [address] [place] [address] Major Assembly Lineman Cardiology 11/15/21 Buffing Wheel Presser Relationship Specialty Start Date End Date Melodie Marina [place] [address] PCP - General 11/05/22 Carrie, Elias S [address] [place] [address] Major Assembly Lineman Cardiology 11/15/21 Buffing Wheel Presser Relationship Specialty Start Date End Date Melodie Marina [place] [address] PCP - General 11/05/22 Carrie, [place] S [address] [place] [address] Major Assembly Lineman Cardiology 11/15/21 Buffing Wheel Presser Relationship Specialty Start Date End Date Melodie Marina [place] [address] PCP - General 11/05/22 Carrie, Elias S [address] [place] [address] Major Assembly Lineman Cardiology 11/15/21 Buffing Wheel Presser Relationship Specialty Start Date End Date Melodie Marina [address] [place] [address] PCP - General 11/05/22 Carrie, [place] S [address] [place] [address] Major Assembly Lineman Cardiology 11/15/21 Buffing Wheel Presser Relationship Specialty Start Date End Date Melodie Marina MD [address] [place] [address] PCP - General 11/05/22 Carrie, Elias S [address] [place] [address] Major Assembly Lineman Cardiology 11/15/21 Buffing Wheel Presser Relationship Specialty Start Date End Date Melodie Marina MD [address] [place] [address] PCP - General 11/05/22 Carrie, [place] S [address] [place] [address] Major Assembly Lineman Cardiology 11/15/21 Buffing Wheel Presser Relationship Specialty Start Date End Date Melodie Marina MD [address] [place] [address] PCP - General 11/05/22 Carrie, [place] S [address] [place] [address] Major Assembly Lineman Cardiology 11/15/21 Buffing Wheel Presser Relationship Specialty Start Date End Date Melodie Marina MD [address] [place] [address] PCP - General 11/05/22 Elias Butler MD [address] [place] [address] Major Assembly Lineman Cardiology 11/15/21 Buffing Wheel Presser Relationship Specialty Start Date End Date Melodie Marina MD [address] [place] [address] PCP - General 11/05/22 Elias Butler MD [address] [place] [address] Major Assembly Lineman Cardiology 11/15/21 Buffing Wheel Presser Relationship Specialty Start Date End Date Melodie Marina MD [address] [place] [address] PCP - General 11/05/22 Elias Butler MD [address] [place] [address] Major Assembly Lineman Cardiology 11/15/21 Buffing Wheel Presser Relationship Specialty Start Date End Date Melodie Marina MD [address] [place] [address] PCP - General 11/05/22 Elias Butler MD [address] [place] [address] Major Assembly Lineman Cardiology 11/15/21 Buffing Wheel Presser Relationship Specialty Start Date End Date Melodie Marina MD [address] [place] [address] PCP - General 11/05/22 Elias Butler MD [address] [place] [address] Major Assembly Lineman Cardiology 11/15/21 Buffing Wheel Presser Relationship Specialty Start Date End Date Melodie Marina MD [address] [place] [address] PCP - General 11/05/22 Elias Butler MD [address] [place] [address] Major Assembly Lineman Cardiology 11/15/21 Buffing Wheel Presser Relationship Specialty Start Date End Date Melodie Marina MD [address] [place] [address] PCP - General 11/05/22 Elias Butler MD [address] [place] [address] Major Assembly Lineman Cardiology 11/15/21 Buffing Wheel Presser Relationship Specialty Start Date End Date Melodie Marina MD [address] [place] [address] PCP - General 11/05/22 Elias Butler MD [address] [place] [address] Major Assembly Lineman Cardiology 11/15/21 Buffing Wheel Presser Relationship Specialty Start Date End Date Melodie Marina MD [address] [place] [address] PCP - General 11/05/22 Elias Butler MD [address] [place] [address] Major Assembly Lineman Cardiology 11/15/21 Buffing Wheel Presser Relationship Specialty Start Date End Date Melodie Marina MD [address] [place] [address] PCP - General 11/05/22 Elias Butler MD [address] [place] [address] Major Assembly Lineman Cardiology 11/15/21 Buffing Wheel Presser Relationship Specialty Start Date End Date Melodie Marina MD [address] [place] [address] PCP - General 11/05/22 Elias Butler MD [address] [place] [address] Major Assembly Lineman Cardiology 11/15/21 Buffing Wheel Presser Relationship Specialty Start Date End Date Melodie Marina MD [address] [place] [address] PCP - General 11/05/22 Elias Butler MD [address] [place] [address] Major Assembly Lineman Cardiology 11/15/21 Buffing Wheel Presser Relationship Specialty Start Date End Date Tom Sherman MD [address] [place] [address] PCP - General Internal Medicine 08/06/22 11/04/22 Elias Butler MD [address] [place] [address] Major Assembly Lineman Cardiology 11/15/21 Buffing Wheel Presser Relationship Specialty Start Date End Date Melodie Marina MD [address] [place] [address] PCP - General 11/05/22 Elias Butler MD [address] [place] [address] Major Assembly Lineman Cardiology 11/15/21 Buffing Wheel Presser Relationship Specialty Start Date End Date Melodie Marina MD [address] [place] [address] PCP - General 11/05/22 Elias Butler MD [address] [place] [address] Major Assembly Lineman Cardiology 11/15/21 Buffing Wheel Presser Relationship Specialty Start Date End Date Melodie Marina CNP [address] [place] [address] PCP - General Family Medicine 03/06/23 Elias Butler MD [address] [place] [address] Major Assembly Lineman Cardiology 11/15/21 Buffing Wheel Presser Relationship Specialty Start Date End Date Melodie Marina CNP [address] [place] [address] PCP - General Family Medicine 03/06/23 Elias Butler MD [address] [place] [address] Major Assembly Lineman Cardiology 11/15/21 Buffing Wheel Presser Relationship Specialty Start Date End Date Melodie Marina CNP [address] [place] [address] PCP - General Family Medicine 03/06/23 Elias Butler MD [address] [address] Major Assembly Lineman Cardiology 11/15/21 Buffing Wheel Presser Relationship Specialty Start Date End Date Melodie Marina CNP [address] [place] [address] PCP - General Family Medicine 03/06/23 Elias Butler MD [address] [address] Major Assembly Lineman Cardiology 11/15/21 Buffing Wheel Presser Relationship Specialty Start Date End Date Melodie Marina CNP [address] [place], [place] [phone] PCP - General Family Medicine 03/06/23 Elias Butler MD [address] [address] Major Assembly Lineman Cardiology 11/15/21 Buffing Wheel Presser Relationship Specialty Start Date End Date Melodie Marina CNP [address] [place] [address] PCP - General Family Medicine 03/06/23 Elias Butler MD [address] [address] Major Assembly Lineman Cardiology 11/15/21 Buffing Wheel Presser Relationship Specialty Start Date End Date Melodie Marina CNP [address] [place] [address] PCP - General Family Medicine 03/06/23 Elias Butler MD [address] [address] Major Assembly Lineman Cardiology 11/15/21 Buffing Wheel Presser Relationship Specialty Start Date End Date Melodie Marina CNP [address] [place] [address] PCP - General Family Medicine 03/06/23 Elias Butler MD [address] [address] Major Assembly Lineman Cardiology 11/15/21 Buffing Wheel Presser Relationship Specialty Start Date End Date Melodie Marina CNP [address] [place] [address] PCP - General Family Medicine 03/06/23 Elias Butler MD [address] [place] [address] Major Assembly Lineman Cardiology 11/15/21 Buffing Wheel Presser Relationship Specialty Start Date End Date Melodie Marina CNP [address] [place] [address] PCP - General Family Medicine 03/06/23 Elias Butler MD [address] [place] [address] Major Assembly Lineman Cardiology 11/15/21 Buffing Wheel Presser Relationship Specialty Start Date End Date Melodie Marina CNP [address] [place] [address] PCP - General Family Medicine 03/06/23 Elias Butler MD [address] [place] [address] Major Assembly Lineman Cardiology 11/15/21 Buffing Wheel Presser Relationship Specialty Start Date End Date Melodie Marina CNP [address] [place] [address] PCP - General Family Medicine 03/06/23 Elias Butler MD [address] [place] [address] Major Assembly Lineman Cardiology 11/15/21 Buffing Wheel Presser Relationship Specialty Start Date End Date Melodie Marina CNP [address] [place] [address] PCP - General Family Medicine 03/06/23 Elias Butler MD [address] [place] [address] Major Assembly Lineman Cardiology 11/15/21 Buffing Wheel Presser Relationship Specialty Start Date End Date Melodie Marina CNP [address] [place] [address] PCP - General Family Medicine 03/06/23 Elias Butler MD [address] [place] [address] Major Assembly Lineman Cardiology 11/15/21 Buffing Wheel Presser Relationship Specialty Start Date End Date Melodie Marina CNP [address] [place] [address] PCP - General Family Medicine 03/06/23 Elias Butler MD [address] [place] [address] Major Assembly Lineman Cardiology 11/15/21 Buffing Wheel Presser Relationship Specialty Start Date End Date Melodie Marina CNP [address] [place] [address] PCP - General Family Medicine 03/06/23 lEias Butler MD [address] [address] Major Assembly Lineman Cardiology 11/15/21 Buffing Wheel Presser Relationship Specialty Start Date End Date Melodie Marina CNP [address] [place] [address] PCP - General Family Medicine 03/06/23 Elias Butler MD [address] [address] Major Assembly Lineman Cardiology 11/15/21 Buffing Wheel Presser Relationship Specialty Start Date End Date Melodie Marina CNP [address] [place] [address] PCP - General Family Medicine 03/06/23 Elias Butler MD [address] [address] Major Assembly Lineman Cardiology 11/15/21 Buffing Wheel Presser Relationship Specialty Start Date End Date Melodie Marina CNP [address] [place] [address] PCP - General Family Medicine 03/06/23 Elias Butler MD [address] [address] Major Assembly Lineman Cardiology 11/15/21 Buffing Wheel Presser Relationship Specialty Start Date End Date Melodie Marina CNP [address] [place] [address] PCP - General Family Medicine 03/06/23 Elias Butler MD [address] [address] Major Assembly Lineman Cardiology 11/15/21 Buffing Wheel Presser Relationship Specialty Start Date End Date Melodie Marina CNP [address] [place] [address] PCP - General Family Medicine 03/06/23 Elias Butler MD [address] [place] [address] Major Assembly Lineman Cardiology 11/15/21 Buffing Wheel Presser Relationship Specialty Start Date End Date Melodie Marina CNP [address] [place] [address] PCP - General Family Medicine 03/06/23 Elias Butler MD [address] [place] [address] Major Assembly Lineman Cardiology 11/15/21 Buffing Wheel Presser Relationship Specialty Start Date End Date Melodie Marina CNP [address] [place] [address] PCP - General Family Medicine 03/06/23 Elias Butler MD [address] [address] Major Assembly Lineman Cardiology 11/15/21 Buffing Wheel Presser Relationship Specialty Start Date End Date Melodie Marina CNP [address] [place] [address] PCP - General Family Medicine 03/06/23 Elias Butler MD [address] [place] [address] Major Assembly Lineman Cardiology 11/15/21 Buffing Wheel Presser Relationship Specialty Start Date End Date Melodie Marina CNP [address] [place] [address] PCP - General Family Medicine 03/06/23 Elias Butler MD [address] [place] [address] Major Assembly Lineman Cardiology 11/15/21 Buffing Wheel Presser Relationship Specialty Start Date End Date Melodie Marina CNP [address] [facility] [place] [address] PCP - General Family Medicine 03/06/23 Elias Butler MD [address] [place] [address] Major Assembly Lineman Cardiology 11/15/21 Rosa Flores, TUNNEL KILN FIRER.LARD MIXER [address] [facility] [place] [address] Endocrinology 12/29/23 Buffing Wheel Presser Relationship Specialty Start Date End Date Melodie Marina CNP [address] [facility] [place] [address] PCP - General Family Medicine 03/06/23 Elias Butler MD [address] [facility] [address] [place] [address] Major Assembly Lineman Cardiology 11/15/21 Rosa Flores, TUNNEL KILN FIRER.LARD MIXER [address] [place] [address] Endocrinology 12/29/23 Buffing Wheel Presser Relationship Specialty Start Date End Date Melodie Marina CNP [address] [place] [address] PCP - General Family Medicine 03/06/23 Elias Butler MD [address] [place] [address] Major Assembly Lineman Cardiology 11/15/21 Rosa Flores TUNNEL KILN FIRER.LARD MIXER [address] [place] [address] Endocrinology 12/29/23 Buffing Wheel Presser Relationship Specialty Start Date End Date Melodie Marina CNP [address] [place] [address] PCP - General Family Medicine 03/06/23 Elias Butler MD [address] [place] [address] Major Assembly Lineman Cardiology 11/15/21 Rosa Flores TUNNEL KILN FIRER.LARD MIXER [address] [place] [address] Endocrinology 12/29/23 Buffing Wheel Presser Relationship Specialty Start Date End Date Melodie Marina CNP [address] [place] [address] PCP - General Family Medicine 03/06/23 Elias Butler MD [address] [place] [address] Major Assembly Lineman Cardiology 11/15/21 Rosa Flores TUNNEL KILN FIRER.LARD MIXER [address] [place] [address] Endocrinology 12/29/23 Buffing Wheel Presser Relationship Specialty Start Date End Date Melodie Marina CNP [address] [place] [address] PCP - General Family Medicine 03/06/23 Elias uBtler MD [address] [place] [address] Major Assembly Lineman Cardiology 11/15/21 Rosa Flores APRN.LARD MIXER [address] [place] [address] Endocrinology 12/29/23 Buffing Wheel Presser Relationship Specialty Start Date End Date Melodie Marina MD [address] [place] [address] PCP - General 11/05/22 03/05/23 Elias Butler MD [address] [place] [address] Major Assembly Lineman Cardiology 11/15/21 Buffing Wheel Presser Relationship Specialty Start Date End Date Melodie Marina MD [address] [place] [address] PCP - General 11/05/22 03/05/23 Elias Butler MD [address] [place] [address] Major Assembly Lineman Cardiology 11/15/21 Buffing Wheel Presser Relationship Specialty Start Date End Date Melodie Marina CNP [address] [place] [address] PCP - General Family Medicine 03/06/23 Elias Butler MD [address] [place] [address] Major Assembly Lineman Cardiology 11/15/21 Rosa Flores APRN.LARD MIXER [address] [place] [address] Endocrinology 12/29/23 Buffing Wheel Presser Relationship Specialty Start Date End Date Melodie Marina CNP [address] [place] [address] PCP - General Family Medicine 03/06/23 Elias Butler MD [address] [place] [address] Major Assembly Lineman Cardiology 11/15/21 Rosa Flores TUNNEL KILN FIRER.LARD MIXER [address] [place] [address] Endocrinology 12/29/23 Buffing Wheel Presser Relationship Specialty Start Date End Date Melodie Marina CNP [address] [place] [address] PCP - General Family Medicine 03/06/23 Elias Butler MD [address] [place] [address] Major Assembly Lineman Cardiology 11/15/21 Rosa Flores, TUNNEL KILN FIRER.LARD MIXER [address] [place] [address] Endocrinology 12/29/23 Buffing Wheel Presser Relationship Specialty Start Date End Date Melodie Marina CNP [address] [place] [address] PCP - General Family Medicine 03/06/23 Elias Butler MD [address] [place] [address] Major Assembly Lineman Cardiology 11/15/21 Rosa Flores TUNNEL KILN FIRER.LARD MIXER [address] [place] [address] Endocrinology 12/29/23 Buffing Wheel Presser Relationship Specialty Start Date End Date MarinaMelodie riveraINDIANA [address] [place] [address] PCP - General Family Medicine 03/06/23 Elias Butler MD [address] [place] [address] Major Assembly Lineman Cardiology 11/15/21 Rosa Flores TUNNEL KILN FIRER.LARD MIXER [address] [place] [address] Endocrinology 12/29/23 Buffing Wheel Presser Relationship Specialty Start Date End Date Josefina MelodieINDIANA [address] [place] [address] PCP - General Family Medicine 03/06/23 Elias Butler MD [address] [place] [address] Major Assembly Lineman Cardiology 11/15/21 Rosa Flores TUNNEL KILN FIRER.LARD MIXER [address] [place] [address] Endocrinology 12/29/23 Buffing Wheel Presser Relationship Specialty Start Date End Date Josefina MelodieINDIANA [address] [facility] [place] [address] PCP - General Family Medicine 03/06/23 Elias Butler MD [address] [place] [address] Major Assembly Lineman Cardiology 11/15/21 Rosa Flores TUNNEL KILN FIRER.LARD MIXER [address] [place] [address] Endocrinology 12/29/23 Buffing Wheel Presser Relationship Specialty Start Date End Date Melodie MarinaINDIANA [address] [place] [address] PCP - General Family Medicine 03/06/23 Elias Butler MD [address] [place] [address] Major Assembly Lineman Cardiology 11/15/21 Rosa Flores TUNNEL KILN FIRER.LARD MIXER [address] [place] [address] Endocrinology 12/29/23 Buffing Wheel Presser Relationship Specialty Start Date End Date Marina MelodieINDIANA [address] [place] [address] PCP - General Family Medicine 03/06/23 Elias Butler MD [address] [place] [address] Major Assembly Lineman Cardiology 11/15/21 Rosa Flores TUNNEL KILN FIRER.LARD MIXER [address] [place] [address] Endocrinology 12/29/23 Buffing Wheel Presser Relationship Specialty Start Date End Date Melodie MarinaINDIANA [address] [place] [address] PCP - General Family Medicine 03/06/23 Elias Butler MD [address] [place] [address] Major Assembly Lineman Cardiology 11/15/21 Rosa Flores TUNNEL KILN FIRER.LARD MIXER [address] [place] [address] Endocrinology 12/29/23 Buffing Wheel Presser Relationship Specialty Start Date End Date Marina MelodieINDIANA [address] [place] [address] PCP - General Family Medicine 03/06/23 Elias Butler MD [address] [place] [address] Major Assembly Lineman Cardiology 11/15/21 Rosa Flores TUNNEL KILN FIRER.LARD MIXER [address] [place] [address] Endocrinology 12/29/23 Buffing Wheel Presser Relationship Specialty Start Date End Date Josefina MelodieINDIANA [address] [place] [address] PCP - General Family Medicine 03/06/23 Elias Butler MD [address] [place] [address] Major Assembly Lineman Cardiology 11/15/21 Rosa Flores TUNNEL KILN FIRER.LARD MIXER [address] [place] [address] Endocrinology 12/29/23 Buffing Wheel Presser Relationship Specialty Start Date End Date Josefina MelodieINDIANA [address] [place] [address] PCP - General Family Medicine 03/06/23 Elias Butler MD [address] [place] [address] Major Assembly Lineman Cardiology 11/15/21 Rosa Flores TUNNEL KILN FIRER.LARD MIXER [address] [place] [address] Endocrinology 12/29/23 Buffing Wheel Presser Relationship Specialty Start Date End Date Josefina MelodieINDIANA [address] [place] [address] PCP - General Family Medicine 03/06/23 Elias Butler MD [address] [place] [address] Major Assembly Lineman Cardiology 11/15/21 Rosa Flores, TUNNEL KILN FIRER.LARD MIXER [address] [place] [address] Endocrinology 12/29/23 Buffing Wheel Presser Relationship Specialty Start Date End Date Josefina MelodieINDIANA [address] [place] [address] PCP - General Family Medicine 03/06/23 Elias Butler MD [address] [facility] [address] [place] [address] Major Assembly Lineman Cardiology 11/15/21 Rosa Flores TUNNEL KILN FIRER.LARD MIXER [address] [place] [address] Endocrinology 12/29/23 Buffing Wheel Presser Relationship Specialty Start Date End Date Josefina MelodieINDIANA [address] [place] [address] PCP - General Family Medicine 03/06/23 Elias Butler MD [address] [place] [address] Major Assembly Lineman Cardiology 11/15/21 Rosa Flores TUNNEL KILN FIRER.LARD MIXER [address] [place] [address] Endocrinology 12/29/23 Buffing Wheel Presser Relationship Specialty Start Date End Date Melodie Marina CNP [address] [place] [address] PCP - General Family Medicine 03/06/23 Elias Butler MD [address] [place] [address] Major Assembly Lineman Cardiology 11/15/21 Rosa Flores TUNNEL KILN FIRER.LARD MIXER [address] [place] [address] Endocrinology 12/29/23 Buffing Wheel Presser Relationship Specialty Start Date End Date Melodie Marina CNP [address] [place] [address] PCP - General Family Medicine 03/06/23 Elias Butler MD [address] [place] [address] Major Assembly Lineman Cardiology 11/15/21 Rosa Flores TUNNEL KILN FIRER.LARD MIXER [address] [place] [address] Endocrinology 12/29/23 Buffing Wheel Presser Relationship Specialty Start Date End Date Melodie Marina CNP [address] [place] [address] PCP - General Family Medicine 03/06/23 Elias Butler MD [address] [place] [address] Major Assembly Lineman Cardiology 11/15/21 Rosa Flores TUNNEL KILN FIRER.LARD MIXER [address] [place] [address] Endocrinology 12/29/23 Buffing Wheel Presser Relationship Specialty Start Date End Date Melodie Marina CNP [address] [place] [address] PCP - General Family Medicine 03/06/23 Elias Butler MD [address] [place] [address] Major Assembly Lineman Cardiology 11/15/21 oRsa Flores TUNNEL KILN FIRER.LARD MIXER [address] [place] [address] Endocrinology 12/29/23 Buffing Wheel Presser Relationship Specialty Start Date End Date Melodie Marina CNP [address] [place] [address] PCP - General Family Medicine 03/06/23 Elias Butler MD [address] [place] [address] Major Assembly Lineman Cardiology 11/15/21 Rosa Flores TUNNEL KILN FIRER.LARD MIXER [address] [place] [address] Endocrinology 12/29/23 Buffing Wheel Presser Relationship Specialty Start Date End Date Melodie Marina CNP [address] [place] [address] PCP - General Family Medicine 03/06/23 Elias Butler MD [address] [place] [address] Major Assembly Lineman Cardiology 11/15/21 Rosa Flores TUNNEL KILN FIRER.LARD MIXER [address] [place] [address] Endocrinology 12/29/23 Buffing Wheel Presser Relationship Specialty Start Date End Date Melodie Marina CNP [address] [place] [address] PCP - General Family Medicine 03/06/23 Elias Butler MD [address] [place] [address] Major Assembly Lineman Cardiology 11/15/21 Rosa Flores TUNNEL KILN FIRER.LARD MIXER [address] [place] [address] Endocrinology 12/29/23 Buffing Wheel Presser Relationship Specialty Start Date End Date Melodie Marina CNP [address] [place] [address] PCP - General Family Medicine 03/06/23 Elias Butler MD [address] [place] [address] Major Assembly Lineman Cardiology 11/15/21 Rosa Flores TUNNEL KILN FIRER.LARD MIXER [address] [place] [address] Endocrinology 12/29/23 Buffing Wheel Presser Relationship Specialty Start Date End Date Melodie Marina CNP [address] [place] [address] PCP - General Family Medicine 03/06/23 Elias Butler MD [address] [place] [address] Major Assembly Lineman Cardiology 11/15/21 Rosa Flores TUNNEL KILN FIRER.LARD MIXER [address] [place] [address] Endocrinology 12/29/23 Buffing Wheel Presser Relationship Specialty Start Date End Date Melodie MarinaINDIANA [address] [place] [address] PCP - General Family Medicine 03/06/23 Elias Butler MD [address] [place] [address] Major Assembly Lineman Cardiology 11/15/21 Rosa Flores TUNNEL KILN FIRER.LARD MIXER [address] [place] [address] Endocrinology 12/29/23 Buffing Wheel Presser Relationship Specialty Start Date End Date Marina MelodieINDIANA [address] [place] [address] PCP - General Family Medicine 03/06/23 Elias Butler MD [address] [place] [address] Major Assembly Lineman Cardiology 11/15/21 Rosa Flores TUNNEL KILN FIRER.LARD MIXER [address] [place] [address] Endocrinology 12/29/23 Buffing Wheel Presser Relationship Specialty Start Date End Date Melodie Marina CNP [address] [place] [address] PCP - General Family Medicine 03/06/23 Elias Butler MD [address] [place] [address] Major Assembly Lineman Cardiology 11/15/21 Rosa Flores TUNNEL KILN FIRER.LARD MIXER [address] [place] [address] Endocrinology 12/29/23 Buffing Wheel Presser Relationship Specialty Start Date End Date Melodie Marina CNP [address] [place] [address] PCP - General Family Medicine 03/06/23 Elias Butler MD [address] [place] [address] Major Assembly Lineman Cardiology 11/15/21 Rosa Flores, TUNNEL KILN FIRER.LARD MIXER [address] [place] [address] Endocrinology 12/29/23 Buffing Wheel Presser Relationship Specialty Start Date End Date Melodie MarinaINDIANA [address] [place] [address] PCP - General Family Medicine 03/06/23 Elias Butler MD [address] [place] [address] Major Assembly Lineman Cardiology 11/15/21 Rosa Flores, TUNNEL KILN FIRER.LARD MIXER [address] [place] [address] Endocrinology 12/29/23 Buffing Wheel Presser Relationship Specialty Start Date End Date Melodie Marina LARD MIXER [address] [place] [address] PCP - General Family Medicine 03/06/23 Elias Butler MD [address] [place] [address] Major Assembly Lineman Cardiology 11/15/21 Rosa Flores TUNNEL KILN FIRER.LARD MIXER [address] [place] [address] Endocrinology 12/29/23 Buffing Wheel Presser Relationship Specialty Start Date End Date Melodie MarinaINDIANA [address] [place] [address] PCP - General Family Medicine 03/06/23 Elias Butler MD [address] [place] [address] Major Assembly Lineman Cardiology 11/15/21 Rosa Flores TUNNEL KILN FIRER.LARD MIXER [address] [place] [address] Endocrinology 12/29/23 Buffing Wheel Presser Relationship Specialty Start Date End Date Melodie MarinaINDIANA [address] [place] [address] PCP - General Family Medicine 03/06/23 Elias Butler MD [address] [place] [address] Major Assembly Lineman Cardiology 11/15/21 Rosa Flores TUNNEL KILN FIRER.LARD MIXER [address] [place] [address] Endocrinology 12/29/23 Buffing Wheel Presser Relationship Specialty Start Date End Date Melodie MarinaINDIANA [address] [place] [address] PCP - General Family Medicine 03/06/23 Elias Butler MD [address] [place] [address] Major Assembly Lineman Cardiology 11/15/21 Rosa Flores TUNNEL KILN FIRER.LARD MIXER [address] [place] [address] Endocrinology 12/29/23 Buffing Wheel Presser Relationship Specialty Start Date End Date Marina MelodieINDIANA [address] [place] [address] PCP - General Family Medicine 03/06/23 Elias Butler MD [address] [place] [address] Major Assembly Lineman Cardiology 11/15/21 Rosa Flores, TUNNEL KILN FIRER.LARD MIXER [address] [place] [address] Endocrinology 12/29/23 Buffing Wheel Presser Relationship Specialty Start Date End Date Melodie MarinaINDIANA [address] [place] [address] PCP - General Family Medicine 03/06/23 Elias Butler MD [address] [place] [address] Major Assembly Lineman Cardiology 11/15/21 Rosa Flores APRN.LARD MIXER [address] [place] [address] Endocrinology 12/29/23 PRN Active and Recently Administ ered Medications (unrecognized section and content) Medication Order 08/30/2024 08/31/2024 09/01/2024 bupivacaine 0.5 % injection (MARCAINE V) (CANCELED) X (OR/PROCEDURE) PRN, Starting on Brigitte 09/01/24 at 1439, Until Brigitte 09/01/24 at 1507, Intraprocedure 1439 (Given - Provid er: Heather Davis MD - Comment: see op note) gadoterate meglumine 0.5 mmol/mL injection (DOTAREM) (CANCELED) X (OR/PROCEDURE) PRN, Starting on Brigitte 09/01/24 at 1452, Until Brigitte 09/01/24 at 1507, Intraprocedure 1452 (Given - Provid [...] on Brigitte 09/01/24 at 1440, Until Brigitte 09/01/24 at 1507, Intraprocedure 1440 (Given - Provid [...] BE BASED ON THE PRIMARY CLINICAL RECORDS. [facility] provides no warranty or guarantee of the accuracy or completeness of information in this document.
--- NOTE | 2024-11-27 13:23 | EDS_ITS ---
HPI <JOHN Orourke - Last Filed: 11/27/24 15:46> History of Present Illness Chief Complaint: Other, Pain/Inj Narrative Narrative: 68-year-old female slipped while getting out of her home hospital bed yesterday and hit her left shoulder on the railing. She was seen here and had negative shoulder x-rays. She woke up this morning and has neck pain that is worse on the left and limited range of motion. She does not recall hitting her head or neck on the bed. She denies pain radiating to her arms or legs, no weakness, numbness or tingling. She is usually on Eliquis but stopped it 2 days ago because she has a procedure scheduled next week. She had a cervical fusion about 10 years ago. [facility] <JOHN Orourke - Last Filed: 11/27/24 15:46> [facility] Medical History Hx MRSA infection Alcohol use Restless legs Wears glasses Complete edentulism, class III Diabetes Walker as ambulation aid Bladder disease Low iron High cholesterol Dietary restriction History of hiatal hernia Gastric reflux Smoker Chronic bronchitis History of Holter monitoring History of echocardiogram History of stress test Cardiology follow-up encounter History of CHF (congestive heart failure) Chest pain PTSD (post-traumatic stress disorder) Vitamin deficiency Fatigue Headache Closed injury of head Insomnia Osteoporosis Chronic neck pain with history of cervical spinal surgery Chronic anticoagulation Mural thrombus of heart Hiatal hernia Chronic back pain History of peptic ulcer disease 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) Essential (primary) hypertension History of ST elevation myocardial infarction (STEMI) Major depression Multiple sclerosis Cervical spinal stenosis IBS (irritable bowel syndrome) RLS (restless legs syndrome) Takotsubo syndrome Atherosclerotic heart disease of [place] coronary artery without angina pectoris Typical atrial flutter Paroxysmal atrial fibrillation Left ventricular hypertrophy Chronic systolic (congestive) heart failure Ischemic cardiomyopathy Apical mural thrombus with acute VA Vitamin B12 deficiency Irritable bowel syndrome with diarrhea Home Medications ?Medication ?Instructions ?Recorded ?Last Taken ?Type modafinil 200 mg tablet 200 mg PO DAILY FATIGUE 11/2509/06/24 History acetaminophen 500 mg tablet 1,000 mg (2 x 500 mg) PO T ID PRN 07/29/20 07/18/24 Rx pain -02/03 #1 TAB cholecalciferol (vitamin D3) 125 125 mcg PO DAILY supp lement 11/05/21 09/06/24 History mcg (5,000 unit) capsule ferrous sulfate 325 mg (65 mg 325 mg PO DAILY suppleme nt 11/05/21 09/06/24 History iron) tablet aspirin 81 mg tablet,delayed 81 mg PO DAILY heart heal th 04/01/22 10/09/24 Histo ry release (Adult Aspirin Regimen) ascorbic acid (vitamin C) 500 mg 500 mg PO DAILY suppl ement 06/06/22 09/06/24 History chewable tablet atorvastatin 40 mg tablet 40 mg PO QHS cholesterol 02/1609/05/24 History denosumab 60 mg/mL subcutaneous 60 mg subcut [id number] bone health 06/06/22 07/21/24 History syringe (Prolia) albuterol sulfate 2.5 mg/3 mL 2.5 mg (3 mL) inhalation Q8H PRN 07/21/22 Unknown Rx (0.083 %) solution for nebulization Dyspnea, wheezing #180 mL blood sugar diagnostic (Accu-Chek #100 ea 07/29/22 Unk nown Rx Ada Plus test strips) pantoprazole 40 mg tablet,delayed 40 mg PO DAILY gerd #90 tabs 09/04/22 10/11/24 Rx release donepezil 10 mg tablet 20 mg PO DAILY 09/11/2208/25 History insulin lispro 100 unit/mL 1 sliding scale dose subcut QAC 09/11/22 09/06/24 History subcutaneous pen hydrocortisone 2.5 % topical cream 1 applic topical BI D PRN skin 09/12/22 Unknown Rx irritation #454 grams albuterol sulfate 90 mcg/actuation 2 puff inhalation Q 6H PRN 10/29/22 07/18/24 Rx aerosol inhaler shortness of breath or wheez ing #8.5 grams vibegron 75 mg tablet (Gemtesa) 75 mg PO DAILY 3 09/06/24 History lidocaine 5 % topical patch 1 patch topical DAILY 05/2909/06/24 History (Lidoderm) ropinirole 2 mg tablet 2 mg PO QHS restless leg 09/1709/05/24 History sucralfate 1 gram tablet 1 g PO 4X/DAY reflux 4 09/06/24 History ropinirole 1 mg tablet 1 mg PO 1200 05/03/24 History fluorometholone 0.1 % eye 1 drp ophthalmic (eye) BID 0 07/10/24 09/06/24 History drops,suspension nystatin 100,000 unit/gram topical 1 applic topical BI D PRN SKIN 07/18/24 09/06/24 History powder (Nystop) tizanidine 2 mg tablet 2 mg PO DAILY PRN pain 07/1809/06/24 History duloxetine 30 mg capsule,delayed 30 mg PO BID mental h ealth #180 08/01/24 09/06/24 Rx release (Cymbalta) caps hydroxyzine HCl 50 mg tablet 50 mg PO BID PRN anxiety #60 tabs 08/01/24 Unknown Rx apixaban 5 mg tablet (Eliquis) 5 mg PO BID #180 tabs 0 08/31/24 10/07/24 Rx tirzepatide 12.5 mg/0.5 mL 15 mg subcut TU 09/06/24 History subcutaneous pen injector (Aston) ondansetron HCl 4 mg tablet 4 mg PO Q8H PRN nausea and 09/26/24 Unknown Rx vomiting #30 tabs carvedilol 6.25 mg tablet 6.25 mg PO BID #180 tabs 09/1810/11/24 Rx dicyclomine 20 mg tablet 20 mg PO BID PRN IBS 5 Unknown History isosorbide mononitrate 30 mg 30 mg PO BID heart #180 t abs 09/29/24 10/11/24 Rx tablet,extended release 24 hr losartan 25 mg tablet 25 mg PO QDAY #90 tabs 09/2910/11/24 Rx nitroglycerin 0.4 mg sublingual 0.4 mg sublingual Q5-1 5M #25 tabs 09/29/24 Unknown Rx tablet oxycodone-acetaminophen 5 mg-325 0.5 - 1 tab PO QDAY P RN pain 09/29/24 Unknown History mg tablet quetiapine 100 mg tablet 100 mg PO QHS #90 tabs 10/03 Unknown Rx quetiapine 25 mg tablet 25 mg PO QHS #90 tabs Unknown Rx ramelteon 8 mg tablet 8 mg PO QHS PRN sleep #90 ta bs 10/03/24 Unknown Rx Allergy/AdvReac Type Severity Reaction Status Date / Time vancomycin Allergy Severe Anaphylaxis Verified 11/27/24 12:26 indomethacin (From Indocin) Allergy Hives Verified 11/27/24 12:26 indomethacin sodium (From Allergy Hives Verified 11/27/24 12:26 Indocin) iodine Allergy Hives Verified 11/27/24 12:26 propoxyphene napsylate (From Allergy Out of Verified 11/27/24 12:26 Darvocet-N) control trazodone AdvReac Intermediate Other Verified 11/27/24 12:26 aripiprazole (From Abilify) AdvReac Other Verified 11/27/24 12:26 aspirin AdvReac Upset Verified 11/27/24 12:26 Stomach clindamycin AdvReac Nausea Verified 11/27/24 12:26 metformin AdvReac Other Verified 11/27/24 12:26 sumatriptan (From Imitrex) AdvReac Vomiting Verified 11/27/24 12:26 Family History Father Cancer Lung cancer Mother Cancer Pancreatic cancer Surgical History Hx of lumbosacral spine surgery Hx of bilateral cataract extraction (~03/2022) History of left heart catheterization (09/25/20) History of loop recorder (06/2014) History of amputation of left great toe History of left knee surgery History of tonsillectomy and adenoidectomy History of back surgery History of cervical discectomy History of coronary artery stent placement (04/08/16) Social History household members: none housing: house Smoking Status: Current every day smoker tobacco type: cigarettes alcohol intake: never substance use type: does not use caffeine: Yes Type: coffee Number of servings: 1 what type of physical activity do you participate in: none and other details: Physical Therapy ROS <JOHN Orourke - Last Filed: 11/27/24 15:46> ROS ED ROS Narrative GI: Negative for nausea, vomiting. Neuro: Negative for headache, motor/sensory dysfunction. EXAM <JOHN Orourke - Last Filed: 11/27/24 15:46> Physical Exam Narrative Exam Narrative: CONST: Patient sitting in no acute distress. EYES: Normal inspection. NECK: Normal inspection. Significant tenderness over left cervical paraspinals, mild midline tenderness without step-offs. RESP: No respiratory distress, CTAB. CVS: Regular rate and rhythm, no murmur, no gallop. Back: Normal inspection, no midline tenderness. SKIN: Color normal, no rash, warm, dry, intact. EXTREMITIES: Normal appearance, moving all extremities, 2+ radial and PT pulses. NEURO: Alert and answering questions appropriately. PSYCH: Normal affect. Const Vital Signs: 11/27/24 12:23 11/27/24 13:27 11/27/24 14:27 Temperature 98.5 F 98.1 F Temperature Source Oral Pulse Rate 75 55 L Respiratory Rate 18 18 Respiratory Effort Normal Respiratory Pattern Normal Blood Pressure 156/77 H 122/56 H Blood Pressure Mean 103 78 Pulse Ox 98 96 Oxygen Delivery Method Room Air <Dr. Jacinto Hendrickson DO - Last Filed: 11/27/24 21:46> Physical Exam Const Vital Signs: 11/27/24 12:23 11/27/24 13:27 11/27/24 14:27 Temperature 98.5 F 98.1 F Temperature Source Oral Pulse Rate 75 55 L Respiratory Rate 18 18 Respiratory Effort Normal Respiratory Pattern Normal Blood Pressure 156/77 H 122/56 H Blood Pressure Mean 103 78 Pulse Ox 98 96 Oxygen Delivery Method Room Air [facility] <JOHN Orourke - Last Filed: 11/27/24 15:46> [facility] Narrative Medical decision making narrative: Differential: Cervical strain, fracture 68-year-old female had a mechanical fall yesterday injuring her left shoulder. Initially presented with shoulder pain and had a negative x-ray but now has developed neck pain and stiffness. She does not recall directly hitting her head or neck. She has pain over the C-spine without step-offs but more so has left cervical paraspinal pain and I think this is musculoskeletal. However, with history of trauma and remote cervical fusion I ordered CT scans of the head and neck to rule out occult fracture. Scans were negative for acute findings and her fusion hardware is intact. She was treated with ibuprofen and [place] with improvement and I advise she use [id number] analgesia and follow-up with her primary care doctor. She was discharged in stable condition. Radiography Diagnostic Testing: Clinical Impression(s) from Imaging Studies Brain CT 11/27/24 13:07 IMPRESSION: No acute intracranial finding. Reading Location: [id number] Cervical Spine CT 11/27/24 13:07 IMPRESSION: No acute CT process in the cervical spine. Reading Location[facility] <Dr. Jacinto Hendrickson, DO - Last Filed: 11/27/24 21:46> [facility] Narrative Medical decision making narrative: Differential: Cervical strain, fracture 68-year-old female had a mechanical fall yesterday injuring her left shoulder. Initially presented with shoulder pain and had a negative x-ray but now has developed neck pain and stiffness. She does not recall directly hitting her head or neck. She has pain over the C-spine without step-offs but more so has l eft cervical paraspinal pain and I think this is musculoskeletal. However, with history of trauma and remote cervical fusion I ordered CT scans of the head and neck to rule out occult fracture. Scans were negative for acute findings and her fusion hardware is intact. She was treated with ibuprofen and [place] with improvement and I advise she use [id number] analgesia and follow-up with her primary care doctor. She was discharged in stable condition. Supervisory Physician Note Patient was seen and examined with the Advanced Practice Provider. Nursing notes and vital signs have been reviewed. Pertinent old records have been reviewed. I agree with the essential elements of the DAJUAN's history, physical exam, assessment, and plan. The differential diagnosis and management options were discussed with the DAJUAN. I participated in determining and agree with the management, procedures, final impression and disposition as documented. See changes noted by me. Please see addendum or separate note for any additional details. Gen: A&O x3, NAD Head: Normocephalic, atraumatic
--- NOTE | 2024-11-27 13:23 | EX.ED.GENINJ ---
HPI <JOHN Orourke - Last Filed: 11/27/24 15:46> History of Present Illness Chief Complaint: Other, Pain/Inj Narrative Narrative: 68-year-old female slipped while getting out of her home hospital bed yesterday and hit her left shoulder on the railing. She was seen here and had negative shoulder x-rays. She woke up this morning and has neck pain that is worse on the left and limited range of motion. She does not recall hitting her head or neck on the bed. She denies pain radiating to her arms or legs, no weakness, numbness or tingling. She is usually on Eliquis but stopped it 2 days ago because she has a procedure scheduled next week. She had a cervical fusion about 10 years ago. [facility] <JOHN Orourke - Last Filed: 11/27/24 15:46> [facility] Medical History Hx MRSA infection Alcohol use Restless legs Wears glasses Complete edentulism, class III Diabetes Walker as ambulation aid Bladder disease Low iron High cholesterol Dietary restriction History of hiatal hernia Gastric reflux Smoker Chronic bronchitis History of Holter monitoring History of echocardiogram History of stress test Cardiology follow-up encounter History of CHF (congestive heart failure) Chest pain PTSD (post-traumatic stress disorder) Vitamin deficiency Fatigue Headache Closed injury of head Insomnia Osteoporosis Chronic neck pain with history of cervical spinal surgery Chronic anticoagulation Mural thrombus of heart Hiatal hernia Chronic back pain History of peptic ulcer disease 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) Essential (primary) hypertension History of ST elevation myocardial infarction (STEMI) Major depression Multiple sclerosis Cervical spinal stenosis IBS (irritable bowel syndrome) RLS (restless legs syndrome) Takotsubo syndrome Atherosclerotic heart disease of [place] coronary artery without angina pectoris Typical atrial flutter Paroxysmal atrial fibrillation Left ventricular hypertrophy Chronic systolic (congestive) heart failure Ischemic cardiomyopathy Apical mural thrombus with acute [place] Vitamin B12 deficiency Irritable bowel syndrome with diarrhea Home Medications ?Medication ?Instructions ?Recorded ?Last Taken ?Type modafinil 200 mg tablet 200 mg PO DAILY FATIGUE 12/12/19 09/06/24 History acetaminophen 500 mg tablet 1,000 mg (2 x 500 mg) PO TID PRN 07/29/20 07/18/24 Rx pain #1 TAB cholecalciferol (vitamin D3) 125 125 mcg PO DAILY supplement 11/05/21 09/06/24 History mcg (5,000 unit) capsule ferrous sulfate 325 mg (65 mg 325 mg PO DAILY supplement 11/05/21 09/06/24 History iron) tablet aspirin 81 mg tablet,delayed 81 mg PO DAILY heart health 04/01/22 10/09/24 History release (Adult Aspirin Regimen) ascorbic acid (vitamin C) 500 mg 500 mg PO DAILY supplement 06/06/22 09/06/24 History chewable tablet atorvastatin 40 mg tablet 40 mg PO QHS cholesterol 06/06/22 09/05/24 History denosumab 60 mg/mL subcutaneous 60 mg subcut [id number] bone health 06/06/22 07/21/24 History syringe (Prolia) albuterol sulfate 2.5 mg/3 mL 2.5 mg (3 mL) inhalation Q8H PRN 07/21/22 Unknown Rx (0.083 %) solution for nebulization Dyspnea, wheezing #180 mL blood sugar diagnostic (Accu-Chek #100 ea 07/29/22 Unknown Rx Ada Plus test strips) pantoprazole 40 mg tablet,delayed 40 mg PO DAILY gerd #90 tabs 09/04/22 10/11/24 Rx release donepezil 10 mg tablet 20 mg PO DAILY 09/11/22 09/06/24 History insulin lispro 100 unit/mL 1 sliding scale dose subcut QAC 09/11/22 09/06/24 History subcutaneous pen hydrocortisone 2.5 % topical cream 1 applic topical BID PRN skin 09/12/22 Unknown Rx irritation #454 grams albuterol sulfate 90 mcg/actuation 2 puff inhalation Q6H PRN 10/29/22 07/18/24 Rx aerosol inhaler shortness of breath or wheezing #8.5 grams vibegron 75 mg tablet (Gemtesa) 75 mg PO DAILY 01/30/23 09/06/24 History lidocaine 5 % topical patch 1 patch topical DAILY 06/22/23 09/06/24 History (Lidoderm) ropinirole 2 mg tablet 2 mg PO QHS restless leg 03/01/24 09/05/24 History sucralfate 1 gram tablet 1 g PO 4X/DAY reflux 03/01/24 09/06/24 History ropinirole 1 mg tablet 1 mg PO 1200 01/07/25 06/17/25 History fluorometholone 0.1 % eye 1 drp ophthalmic (eye) BID 07/10/24 09/06/24 History drops,suspension nystatin 100,000 unit/gram topical 1 applic topical BID PRN SKIN 07/18/24 09/06/24 History powder (Nystop) tizanidine 2 mg tablet 2 mg PO DAILY PRN pain 07/18/24 09/06/24 History duloxetine 30 mg capsule,delayed 30 mg PO BID mental health #180 08/01/24 09/06/24 Rx release (Cymbalta) caps hydroxyzine HCl 50 mg tablet 50 mg PO BID PRN anxiety #60 tabs 08/01/24 Unknown Rx apixaban 5 mg tablet (Eliquis) 5 mg PO BID #180 tabs 08/31/24 10/07/24 Rx tirzepatide 12.5 mg/0.5 mL 15 mg subcut TU 09/06/24 10/04/24 History subcutaneous pen injector (Aston) ondansetron HCl 4 mg tablet 4 mg PO Q8H PRN nausea and 09/26/24 Unknown Rx vomiting #30 tabs carvedilol 6.25 mg tablet 6.25 mg PO BID #180 tabs 09/29/24 10/11/24 Rx dicyclomine 20 mg tablet 20 mg PO BID PRN IBS 09/29/24 Unknown History isosorbide mononitrate 30 mg 30 mg PO BID heart #180 tabs 09/29/24 10/11/24 Rx tablet,extended release 24 hr losartan 25 mg tablet 25 mg PO QDAY #90 tabs 09/29/24 10/11/24 Rx nitroglycerin 0.4 mg sublingual 0.4 mg sublingual Q5-15M #25 tabs 09/29/24 Unknown Rx tablet oxycodone-acetaminophen 5 mg-325 0.5 - 1 tab PO QDAY PRN pain 09/29/24 Unknown History mg tablet quetiapine 100 mg tablet 100 mg PO QHS #90 tabs 10/03/24 Unknown Rx quetiapine 25 mg tablet 25 mg PO QHS #90 tabs 10/03/24 Unknown Rx ramelteon 8 mg tablet 8 mg PO QHS PRN sleep #90 tabs 10/03/24 Unknown Rx Allergy/AdvReac Type Severity Reaction Status Date / Time vancomycin Allergy Severe Anaphylaxis Verified 11/27/24 12:26 indomethacin (From Indocin) Allergy Hives Verified 11/27/24 12:26 indomethacin sodium (From Allergy Hives Verified 11/27/24 12:26 Indocin) iodine Allergy Hives Verified 11/27/24 12:26 propoxyphene napsylate (From Allergy Out of Verified 11/27/24 12:26 Darvocet-N) control trazodone AdvReac Intermediate Other Verified 11/27/24 12:26 aripiprazole (From Abilify) AdvReac Other Verified 11/27/24 12:26 aspirin AdvReac Upset Verified 11/27/24 12:26 Stomach clindamycin AdvReac Nausea Verified 11/27/24 12:26 metformin AdvReac Other Verified 11/27/24 12:26 sumatriptan (From Imitrex) AdvReac Vomiting Verified 11/27/24 12:26 Family History Father Cancer Lung cancer Mother Cancer Pancreatic cancer Surgical History Hx of lumbosacral spine surgery Hx of bilateral cataract extraction (~03/2022) History of left heart catheterization (09/25/20) History of loop recorder (06/2014) History of amputation of left great toe History of left knee surgery History of tonsillectomy and adenoidectomy History of back surgery History of cervical discectomy History of coronary artery stent placement (04/08/16) Social History household members: none housing: house Smoking Status: Current every day smoker tobacco type: cigarettes alcohol intake: never substance use type: does not use caffeine: Yes Type: coffee Number of servings: 1 what type of physical activity do you participate in: none and other details: Physical Therapy ROS <JOHN Orourke - Last Filed: 11/27/24 15:46> ROS ED ROS Narrative GI: Negative for nausea, vomiting. Neuro: Negative for headache, motor/sensory dysfunction. EXAM <JOHN Orourke - Last Filed: 11/27/24 15:46> Physical Exam Narrative Exam Narrative: CONST: Patient sitting in no acute distress. EYES: Normal inspection. NECK: Normal inspection. Significant tenderness over left cervical paraspinals, mild midline tenderness without step-offs. RESP: No respiratory distress, CTAB. CVS: Regular rate and rhythm, no murmur, no gallop. Back: Normal inspection, no midline tenderness. SKIN: Color normal, no rash, warm, dry, intact. EXTREMITIES: Normal appearance, moving all extremities, 2+ radial and PT pulses. NEURO: Alert and answering questions appropriately. PSYCH: Normal affect. Const Vital Signs: 11/27/24 12:23 11/27/24 13:27 11/27/24 14:27 Temperature 98.5 F 98.1 F Temperature Source Oral Pulse Rate 75 55 L Respiratory Rate 18 18 Respiratory Effort Normal Respiratory Pattern Normal Blood Pressure 156/77 H 122/56 H Blood Pressure Mean 103 78 Pulse Ox 98 96 Oxygen Delivery Method Room Air <Dr. Jacinto Hendrickson DO - Last Filed: 11/27/24 21:46> Physical Exam Const Vital Signs: 11/27/24 12:23 11/27/24 13:27 11/27/24 14:27 Temperature 98.5 F 98.1 F Temperature Source Oral Pulse Rate 75 55 L Respiratory Rate 18 18 Respiratory Effort Normal Respiratory Pattern Normal Blood Pressure 156/77 H 122/56 H Blood Pressure Mean 103 78 Pulse Ox 98 96 Oxygen Delivery Method Room Air [facility] <Selene Gatica, PA - Last Filed: 11/27/24 15:46> [facility] Narrative Medical decision making narrative: Differential: Cervical strain, fracture 68-year-old female had a mechanical fall yesterday injuring her left shoulder. Initially presented with shoulder pain and had a negative x-ray but now has developed neck pain and stiffness. She does not recall directly hitting her head or neck. She has pain over the C-spine without step-offs but more so has left cervical paraspinal pain and I think this is musculoskeletal. However, with history of trauma and remote cervical fusion I ordered CT scans of the head and neck to rule out occult fracture. Scans were negative for acute findings and her fusion hardware is intact. She was treated with ibuprofen and [place] with improvement and I advise she use [id number] analgesia and follow-up with her primary care doctor. She was discharged in stable condition. Radiography Diagnostic Testing: Clinical Impression(s) from Imaging Studies Brain CT 11/27/24 13:07 IMPRESSION: No acute intracranial finding. Reading Location: [id number] Cervical Spine CT 11/27/24 13:07 IMPRESSION: No acute CT process in the cervical spine. Reading [facility] <Dr. Jacinto Hendrickson, DO - Last Filed: 11/27/24 21:46> [facility] MDM Narrative Medical decision making narrative: Differential: Cervical strain, fracture 68-year-old female had a mechanical fall yesterday injuring her left shoulder. Initially presented with shoulder pain and had a negative x-ray but now has developed neck pain and stiffness. She does not recall directly hitting her head or neck. She has pain over the C-spine without step-offs but more so has left cervical paraspinal pain and I think this is musculoskeletal. However, with history of trauma and remote cervical fusion I ordered CT scans of the head and neck to rule out occult fracture. Scans were negative for acute findings and her fusion hardware is intact. She was treated with ibuprofen and [place] with improvement and I advise she use [id number] analgesia and follow-up with her primary care doctor. She was discharged in stable condition. Supervisory Physician Note Patient was seen and examined with the Advanced Practice Provider. Nursing notes and vital signs have been reviewed. Pertinent old records have been reviewed. I agree with the essential elements of the DAJUAN's history, physical exam, assessment, and plan. The differential diagnosis and management options were discussed with the DAJUAN. I participated in determining and agree with the management, procedures, final impression and disposition as documented. See changes noted by me. Please see addendum or separate note for any additional details. Gen: A&O x3, NAD Head: Normocephalic, atraumatic Eyes: No sclera icterus, conjunctiva clear, PERRL, EOMI ENT: Atraumatic without tenderness Neck: Trachea midline, No JVD, full range of motion, no midline spinal tenderness, no bony step-offs, tenderness to palpation over the left paraspinal musculature of the cervical spine CV: RRR, no murmurs, no chest wall TTP Resp: Lungs CTA BL, no w/r/c GI: Abd soft, non-distended, non-tender, no r/r/g Musc: Full ROM, no deformity, no spinal TTP, no mary step-offs, radia/D/ PT pulses +2 bilaterally Skin: Warm, dry, intact Neuro: Alert, oriented, grossly intact, sensation intact Psych: Cooperative, appropriate mood and affect Impression: 1. Cervical strain 2. History of mechanical fall Radiography Diagnostic Testing: Clinical Impression(s) from Imaging Studies Brain CT 11/27/24 13:07 IMPRESSION: No acute intracranial finding. Reading Location: [facility] Cervical Spine CT 11/27/24 13:07 IMPRESSION: No acute CT process in the cervical spine. Reading Location: [facility] Discharge Plan Triage Chief Complaint: Other, Pain/Inj ED Midlevel Provider: Selene Gatica ED Provider: Jacinto Hendrickson Dx/Rx/DC Orders Clinical Impression: Fall, Acute cervical myofascial strain, History of fusion of cervical spine Instructions: ED Neck Sprain or Strain Prescriptions: No Action cholecalciferol (vitamin D3) 125 mcg (5,000 unit) capsule 125 mcg PO DAILY ferrous sulfate 325 mg (65 mg iron) tablet 325 mg PO DAILY aspirin [Adult Aspirin Regimen] 81 mg tablet,delayed release (DR/EC) 81 mg PO DAILY donepezil 10 mg tablet 20 mg PO DAILY Rx Instructions: with lunch insulin lispro 100 unit/mL insulin pen 1 sliding scale dose subcut QAC Patient Comments: Use with meals based on PRE meal blood sugar SLIDING SCALE as needed #1 (1 unit for every 50 over 150) Max 20 units daily. albuterol sulfate 2.5 mg /3 mL (0.083 %) solution for nebulization 2.5 mg inhalation Q8H PRN (Reason: Dyspnea, wheezing) Qty: 180 0RF hydrocortisone 2.5 % cream 1 applic topical BID PRN (Reason: skin irritation) Qty: 454 1RF Gemtesa 75 mg tablet 75 mg PO DAILY lidocaine [Lidoderm] 5 % adhesive patch,medicated 1 patch topical DAILY Rx Instructions: leave on most painful area for up to 12 hrs ropinirole 1 mg tablet 1 mg PO 1200 Rx Instructions: 1mg at lunch and 2mg at HS ropinirole 2 mg tablet 2 mg PO QHS Rx Instructions: 1mg at lunch and 2mg at HS sucralfate 1 gram tablet 1 g PO 4X/DAY oxycodone-acetaminophen 5-325 mg tablet 0.5 - 1 tab PO QDAY PRN (Reason: pain) carvedilol 6.25 mg tablet 6.25 mg PO BID Qty: 180 3RF Rx Instructions: must administer with a meal/food isosorbide mononitrate 30 mg tablet extended release 24 hr 30 mg PO BID Qty: 180 3RF losartan 25 mg tablet 25 mg PO QDAY Qty: 90 3RF nitroglycerin 0.4 mg tablet, sublingual 0.4 mg sublingual Q5-15M Qty: 25 3RF hydroxyzine HCl 50 mg tablet 50 mg PO BID PRN (Reason: anxiety) Qty: 60 1RF duloxetine [Cymbalta] 30 mg capsule,delayed release(DR/EC) 30 mg PO BID Qty: 180 2RF ramelteon 8 mg tablet 8 mg PO QHS PRN (Reason: sleep) Qty: 90 1RF quetiapine 100 mg tablet 100 mg PO QHS Qty: 90 1RF quetiapine 25 mg tablet 25 mg PO QHS Qty: 90 1RF Rx Instructions: To be taken with 100 mg tablet at bedtime for nightly dose of 125 mg qHS ondansetron HCl 4 mg tablet 4 mg PO Q8H PRN Qty: 30 2RF modafinil 200 MG tablet 200 mg PO DAILY acetaminophen 500 MG tablet 1,000 mg PO TID PRN (Reason: pain -02/03) Qty: 1 0RF Rx Instructions: alternate with ibuprofen atorvastatin 40 mg tablet 40 mg PO QHS ascorbic acid (vitamin C) 500 mg tablet,chewable 500 mg PO DAILY Prolia 60 mg/mL syringe 60 mg subcut [id number] Patient Comments: PT STATES LAST GIVEN END OF JUNE tizanidine 2 mg tablet 2 mg PO DAILY PRN (Reason: pain) Rx Instructions: TAKE 1 TABLET BY MOUTH EVERY MORNING and 1 to 2 TABLETS AT BEDTIME NEEDED FOR PAIN control nystatin [Nystop] 100,000 unit/gram powder 1 applic topical BID PRN (Reason: SKIN) Mounjaro 12.5 mg/0.5 mL pen injector 15 mg subcut TU fluorometholone 0.1 % drops,suspension 1 drp ophthalmic (eye) BID dicyclomine 20 mg tablet 20 mg PO BID PRN (Reason: IBS) (DME) Accu-Chek Ada Plus test strp Strip See Rx Instructions .Route Qty: 100 6RF Rx Instructions: As directed pantoprazole 40 mg tablet,delayed release (DR/EC) 40 mg PO DAILY Qty: 90 1RF albuterol sulfate 90 mcg/actuation HFA aerosol inhaler 2 puff inhalation Q6H PRN (Reason: shortness of breath or wheezing) Qty: 8.5 2RF Eliquis 5 mg tablet 5 mg PO BID Qty: 180 3RF Primary Care Provider: Carlton Rocha Referrals: Carlton Rocha, SAFETY INVESTIGATOR/CAUSE ANALYST-C [Primary Care Provider] - Activity Restrictions/Additional Instructions: The CT scan showed no broken bones and your fusion hardware is intact. I think you strained your neck muscles. Ice and take Tylenol or ibuprofen as needed. Print Language: Hungarian Disposition Disposition: Home, Self Care Discharge Date/Time: 11/27/24 14:29
[2024-11-27] MEDS: HYDROcodone Bitartrate/Apap 5/325 Tablet PO (13:24)
[2024-11-27 14:27] VITALS: BP 122/56; PULSE 55; RESP 18; TEMP 36.7; O2SAT 96
== END 2024-11-27 14:29 | disposition home or self-care (01) ==
PROVIDERS: Emergency Provider Surgery; PCP Nurse Practitioner Family; Visit Provider Surgery
DX: S16.1XXA Strain of muscle, fascia and tendon at neck level, initial encounter (principal); G35 Multiple sclerosis; I11.0 Hypertensive heart disease with heart failure; I50.22 Chronic systolic (congestive) heart failure; I48.0 Paroxysmal atrial fibrillation; E11.9 Type 2 diabetes mellitus without complications; Z79.4 Long term (current) use of insulin; W01.190A Fall on same level from slipping, tripping and stumbling with subsequent striking against furniture, initial encounter; E78.00 Pure hypercholesterolemia, unspecified; F17.210 Nicotine dependence, cigarettes, uncomplicated; Z98.1 Arthrodesis status; Z79.01 Long term (current) use of anticoagulants; Z79.82 Long term (current) use of aspirin; Z79.85 Long-term (current) use of injectable non-insulin antidiabetic drugs; Z79.899 Other long term (current) drug therapy
CPT/HCPCS: 70450; 72125; 99285

== ENCOUNTER 2024-11-29 13:27 | Day surgery (SDC) | payer MEDICARE, MEDICAID, SELFPAY ==
[2016-07-13 11:45] VITALS: BMI 31.4
--- NOTE | 2024-11-24 16:37 | PAT.ANESEVAL ---
Pre-Assessment Diagnosis/Proposed Procedure Planned Operative Procedure(s): ercp Anesthesia History Anesthesia History - industrial psychologist: Anesthesia History - industrial psychologist Hx Hospitalization Yes: 01-19 back surgery/ 11/24/24 16:04 pancreatitis Any Problems With Anesthesia No 11/24/24 16:04 Cholinesterase deficiency No 11/24/24 16:04 You/Your Family Experience No 11/24/24 16:04 fever (hyperthermia) with Relationship Recent Exposure to Contagious No 10/11/24 12:14 Disease Does patient have nerve No 11/24/24 16:04 stimulator Patient instructed to have device shut off --Does patient have Pacemaker or ICD? When Was Last Pacemaker Check QUESTION #4 FULL TEXT: You/Your Family Experience fever (hyperthermia) with Anesthesia Last Oral Intake Last Oral intake: Last Oral Intake NPO since Meds taken in AM with sips of water? Meds patient instructed to take am of surgery PONV PONV - industrial psychologist: PONV - industrial psychologist Female Yes 11/24/24 16:04 HX of Motion Sickness No 11/24/24 16:04 HX of N/V After Surgery No 11/24/24 16:04 Non-Smoker No 11/24/24 16:04 Duration of Surgery greater No 11/24/24 16:04 than 60 minutes Number of Risk Factors 1 11/24/24 16:04 PONV Score Low Risk 11/24/24 16:04 Height & Weight Height & Weight: Anesthesia: Height & Weight Height 5 ft 2 in 10/11/24 12:14 Respiratory Assessment Respiratory Assessment - industrial psychologist: Respiratory Tract Infection Hx - industrial psychologist Hx Respiratory Tract Infection No 11/24/24 16:04 STOP Sleep Apnea STOP Sleep Apnea - industrial psychologist: STOP Sleep Apnea - industrial psychologist Hx Hypertension Yes 11/24/24 16:04 Hx Sleep Apnea No 11/24/24 16:04 CPAP No 07/21/24 17:55 BIPAP Yes: doesn't have to wear 06/06/22 16:26 bipap anymore Do you snore loudly (louder No 11/24/24 16:04 than talking or can be heard Do you often feel tired/ No 11/24/24 16:04 fatigued/ sleepy during daytime? Has anyone observed you stop No 11/24/24 16:04 breathing during sleep? STOP Results Negative 11/24/24 16:04 QUESTION #5 FULL TEXT : Do you snore loudly (louder than talking or can be heard through closed doors)? Tobacco Use History Tobacco Use History - industrial psychologist: Tobacco Use History - industrial psychologist Tobacco Use Cigarettes 08/30/20 20:38 Smoking Status Current some day smoker 11/24/24 16:04 Hx Tobacco Use Yes 11/24/24 16:04 Years Smoking 50 11/24/24 16:04 Packs Smoked per Day Smoking Cessation Date was within the last 15 years Hx Smoking Cessation Date Hx Smoking Cessation No 11/24/24 16:04 Counseling Hematologic Medial History Hematologic Hx - industrial psychologist: Hematologic Medical Hx - slabber light Hx of Blood Transfusion No 11/24/24 16:04 Hx of Transfusion in last 3 No 11/24/24 16:04 Months Date of Last Transfusion (if within last 3 months) Ever experience any problems No 11/24/24 16:04 with transfusion(s)? Specify any problems Hx of Preganancy in last 3 No 11/24/24 16:04 Months Nurse Filling Out Transfusion JZOLLINGE 11/24/24 16:04 & Questions: Date: 11/24/24 11/24/24 16:04 Time: 16:07 11/24/24 16:04 Patient unable to answer at this time (ie. confused, unrespo /Reproduction History /Reproductive History - industrial psychologist: /Reproductive Hx- industrial psychologist Hx Now No 11/24/24 16:04 Gestational Age (in weeks): EDC: Hx Hx Para Hx Section SAB No 11/24/24 16:04 [facility] Medical History (Updated 11/24/24 @ 16:12 by Bobbi Lao) Hx MRSA infection Alcohol use Restless legs Wears glasses Complete edentulism, class III Diabetes Walker as ambulation aid Bladder disease Low iron High cholesterol Dietary restriction History of hiatal hernia Gastric reflux Smoker Chronic bronchitis History of Holter monitoring History of echocardiogram History of stress test Cardiology follow-up encounter History of CHF (congestive heart failure) Chest pain PTSD (post-traumatic stress disorder) Vitamin deficiency Fatigue Headache Closed injury of head Insomnia Osteoporosis Chronic neck pain with history of cervical spinal surgery Chronic anticoagulation Mural thrombus of heart Hiatal hernia Chronic back pain History of peptic ulcer disease 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) Essential (primary) hypertension History of ST elevation myocardial infarction (STEMI) Major depression Multiple sclerosis Cervical spinal stenosis IBS (irritable bowel syndrome) RLS (restless legs syndrome) Takotsubo syndrome Atherosclerotic heart disease of [place] coronary artery without angina pectoris Typical atrial flutter Paroxysmal atrial fibrillation Left ventricular hypertrophy Chronic systolic (congestive) heart failure Ischemic cardiomyopathy Apical mural thrombus with acute VT Vitamin B12 deficiency Irritable bowel syndrome with diarrhea Home Medications ?Medication ?Instructions ?Recorded ?Last Taken ?Type modafinil 200 mg tablet 200 mg PO DAILY FATIGUE 12/12/19 09/06/24 History acetaminophen 500 mg tablet 1,000 mg (2 x 500 mg) PO TID PRN 07/29/20 07/18/24 Rx pain -02/03 #1 TAB cholecalciferol (vitamin D3) 125 125 mcg PO DAILY supplement 11/05/21 09/06/24 History mcg (5,000 unit) capsule ferrous sulfate 325 mg (65 mg 325 mg PO DAILY supplement 11/05/21 09/06/24 History iron) tablet aspirin 81 mg tablet,delayed 81 mg PO DAILY heart health 04/01/22 10/09/24 History release (Adult Aspirin Regimen) ascorbic acid (vitamin C) 500 mg 500 mg PO DAILY supplement 06/06/22 09/06/24 History chewable tablet atorvastatin 40 mg tablet 40 mg PO QHS cholesterol 06/06/22 09/05/24 History denosumab 60 mg/mL subcutaneous 60 mg subcut [id number] bone health 06/06/22 07/21/24 History syringe (Prolia) albuterol sulfate 2.5 mg/3 mL 2.5 mg (3 mL) inhalation Q8H PRN 07/21/22 Unknown Rx (0.083 %) solution for nebulization Dyspnea, wheezing #180 mL blood sugar diagnostic (Accu-Chek #100 ea 07/29/22 Unknown Rx Ada Plus test strips) pantoprazole 40 mg tablet,delayed 40 mg PO DAILY gerd #90 tabs 09/04/22 10/11/24 Rx release donepezil 10 mg tablet 20 mg PO DAILY 09/11/22 09/06/24 History insulin lispro 100 unit/mL 1 sliding scale dose subcut QAC 09/11/22 09/06/24 History subcutaneous pen hydrocortisone 2.5 % topical cream 1 applic topical BID PRN skin 05/19/23 Unknown Rx irritation #454 grams albuterol sulfate 90 mcg/actuation 2 puff inhalation Q6H PRN 10/29/22 07/18/24 Rx aerosol inhaler shortness of breath or wheezing #8.5 grams vibegron 75 mg tablet (Gemtesa) 75 mg PO DAILY 01/30/23 09/06/24 History lidocaine 5 % topical patch 1 patch topical DAILY 06/22/23 09/06/24 History (Lidoderm) ropinirole 2 mg tablet 2 mg PO QHS restless leg 03/01/24 09/05/24 History sucralfate 1 gram tablet 1 g PO 4X/DAY reflux 03/01/24 09/06/24 History ropinirole 1 mg tablet 1 mg PO 1200 05/03/24 10/11/24 History fluorometholone 0.1 % eye 1 drp ophthalmic (eye) BID 07/10/24 09/06/24 History drops,suspension nystatin 100,000 unit/gram topical 1 applic topical BID PRN SKIN 07/18/24 09/06/24 History powder (Nystop) tizanidine 2 mg tablet 2 mg PO DAILY PRN pain 07/18/24 09/06/24 History duloxetine 30 mg capsule,delayed 30 mg PO BID mental health #180 08/01/24 09/06/24 Rx release (Cymbalta) caps hydroxyzine HCl 50 mg tablet 50 mg PO BID PRN anxiety #60 tabs 08/01/24 Unknown Rx apixaban 5 mg tablet (Eliquis) 5 mg PO BID #180 tabs 08/31/24 10/07/24 Rx tirzepatide 12.5 mg/0.5 mL 15 mg subcut TU 09/06/24 10/04/24 History subcutaneous pen injector (Mounjaro) ondansetron HCl 4 mg tablet 4 mg PO Q8H PRN nausea and 09/26/24 Unknown Rx vomiting #30 tabs carvedilol 6.25 mg tablet 6.25 mg PO BID #180 tabs 09/29/24 10/11/24 Rx dicyclomine 20 mg tablet 20 mg PO BID PRN IBS 09/29/24 Unknown History isosorbide mononitrate 30 mg 30 mg PO BID heart #180 tabs 09/29/24 10/11/24 Rx tablet,extended release 24 hr losartan 25 mg tablet 25 mg PO QDAY #90 tabs 09/29/24 10/11/24 Rx nitroglycerin 0.4 mg sublingual 0.4 mg sublingual Q5-15M #25 tabs 09/29/24 Unknown Rx tablet oxycodone-acetaminophen 5 mg-325 0.5 - 1 tab PO QDAY PRN pain 09/29/24 Unknown History mg tablet quetiapine 100 mg tablet 100 mg PO QHS #90 tabs 10/03/24 Unknown Rx quetiapine 25 mg tablet 25 mg PO QHS #90 tabs 10/03/24 Unknown Rx ramelteon 8 mg tablet 8 mg PO QHS PRN sleep #90 tabs 10/03/24 Unknown Rx Allergy/AdvReac Type Severity Reaction Status Date / Time vancomycin Allergy Severe Anaphylaxis Verified 10/11/24 12:10 indomethacin (From Indocin) Allergy Hives Verified 10/11/24 12:10 indomethacin sodium (From Allergy Hives Verified 10/11/24 12:10 Indocin) iodine Allergy Hives Verified 10/11/24 12:10 propoxyphene napsylate (From Allergy Out of Verified 10/11/24 12:10 Darvocet-N) control trazodone AdvReac Intermediate Other Verified 10/11/24 12:10 aripiprazole (From Abilify) AdvReac Other Verified 10/11/24 12:10 aspirin AdvReac Upset Verified 10/11/24 12:10 Stomach clindamycin AdvReac Nausea Verified 10/11/24 12:10 metformin AdvReac Other Verified 10/11/24 12:10 sumatriptan (From Imitrex) AdvReac Vomiting Verified 10/11/24 12:10 Family History Father Cancer Lung cancer Mother Cancer Pancreatic cancer Surgical History (Updated 10/10/24 @ 16:46 by Padmini Bullock) Hx of lumbosacral spine surgery Hx of bilateral cataract extraction (~03/2022) History of left heart catheterization (09/25/20) History of loop recorder (06/2014) History of amputation of left great toe History of left knee surgery History of tonsillectomy and adenoidectomy History of back surgery History of cervical discectomy History of coronary artery stent placement (04/08/16) Social History household members: none housing: house Smoking Status: Current some day smoker tobacco type: cigarettes alcohol intake: never substance use type: does not use caffeine: Yes Type: coffee Number of servings: 1 what type of physical activity do you participate in: none and other details: Physical Therapy Audit: Pertinent Findings Pertinent Findings EKG Perinent findings: 10/11/2024. Normal sinus rhythm. Left axis deviation. Consult pertinent findings: Cardiology visit 09/29/2024. 68-year-old female with history of CAD with stenting to her LAD and angioplasty of her second diagonal in March [address] elevation myocardial infarction. Noted to have a left ventricular apical thrombus and cardiomyopathy with an ejection fraction of 25 to 30%. This was repeated in June 2016 and the ejection fraction had improved to 40% with no evidence of ventricular thrombus. Stress echo August 2019 improved to EF 55%. Stress test in September 14 was negative for ischemia. Diagnostic heart cath in October 15 demonstrated patent stents. On October 27, 2021 she was admitted to [facility] for hypertensive emergency. Echo demonstrated EF 48%, grade 1 diastolic dysfunction, small LV apical transmural thrombus noted. Stress test was found to be normal. Diagnostic heart cath and this was noted to be normal. We discharged home with a decrease in her Coreg and isosorbide was added. Recommendation Anesthesia Recommendation Anesthesia recommendation: OPTIMIZED for anesthesia
[2024-11-29] VITALS (7 sets, daily range): BP systolic 140–167; BP diastolic 51–78; PULSE 52–71; RESP 16; TEMP 36.3–36.6; O2SAT 97–100; BMI 29.0
--- NOTE | 2024-11-29 13:30 | RAD_ITS ---
PROCEDURE: ERCP BILIARY/PANCREAS; O.R. FLUORO FOR C-ARM 11/29/2024 REASON FOR EXAM: ERCP TECHNIQUE: ERCP BILIARY/PANCREAS; O.R. FLUORO FOR C-ARM Fluoroscopy performed for ERCP. A total of 6 fluoroscopic images were also obtained. RAD/O.R. Fluoro for C-Arm IMPRESSION: Intraoperative fluoroscopy performed for ERCP. A total of 6 fluoroscopic image s were also obtained. Reading Location: [place] [id number]
--- NOTE | 2024-11-29 13:30 | RAD_ITS ---
PROCEDURE: ERCP BILIARY/PANCREAS; O.R. FLUORO FOR C-ARM 11/29/2024 REASON FOR EXAM: ERCP TECHNIQUE: ERCP BILIARY/PANCREAS; O.R. FLUORO FOR C-ARM Fluoroscopy performed for ERCP. A total of 6 fluoroscopic images were also obtained. RAD/ERCP Biliary/Pancreas IMPRESSION: Intraoperative fluoroscopy performed for ERCP. A total of 6 fluoroscopic image s were also obtained. Reading Location: [place] [id number]
[2024-11-29] MEDS: Lactated Ringers 1,000 ML 15 ML IV (13:58)
--- NOTE | 2024-11-29 14:11 | PCM.PRE.AN2 ---
ASA Classification* ASA Classification ASA Classification: 2 Assessment & Plan Anesthesia* Anesthesia Assessment Anesthesia Assessment: Discussed sedation and/or anesthesia options, risks, benefits, and alternatives with patient/parents/legal guardian/POA. Questions invited. The patient/parents/legal guardian/POA seems to understand and agrees to proceed with anesthesia plan. Reviewed the physical assessment, medical history, allergy history and patient home medications list prior to surgery/procedure/anesthetic and documented any changes. Performed airway and anesthesia risk assessments. Anesthesia Type Anesthesia Type: General and MAC History Source History Obtained from:: Patient and Chart Anesthesia Focused Assessment* Temperature: 97.9 F Pulse Rate: 52 Blood Pressure: 140/51 Respiratory Rate: 16 Pulse Ox: 100 Airway Assessment Mouth opens: >3 cm Mallampati Score: II Teeth Condition: Dentures (Edentulous) Neck Range of motion (ROM): Limited ROM Labs Anesthesia Preop lab: CBC WBC 6.9 K/mm3 (4.4-11.0) 09/06/24 16:58 09/06/24 RBC 4.71 M/mm3 (4.2-5.4) 09/06/24 16:58 09/06/24 Hgb 13.4 g/dL (12.0-15.0) 09/06/24 16:58 09/06/24 Hct 41.1 % (37-47) 09/06/24 16:58 09/06/24 Plt Count 308 K/mm3 (150-450) 09/06/24 16:58 09/06/24 CHEMISTRY Potassium 4.4 mmol/L (3.3-5.1) 09/06/24 16:58 09/06/24 Sodium 131 mmol/L (133-145) L 09/06/24 16:58 09/06/24 Magnesium 2.0 mg/dL (1.6-2.6) 04/28/22 18:50 04/28/22 Phosphorus 2.2 mg/dL (2.5-4.9) L 04/14/18 22:30 04/14/18 BUN 38 mg/dL (4-19) H 09/06/24 16:58 09/06/24 Creatinine 1.05 mg/dL (0.70-1.20) 09/06/24 16:58 09/06/24 Glucose 183 mg/dL (70-99) H 09/06/24 16:58 09/06/24 POC Glucose 138 mg/dL (74-106) H 10/11/24 12:01 10/11/24 TSH 1.440 uIU/mL (0.300-4.200) 07/19/24 06:17 07/19/24 COAG PT 13.3 SECONDS (11.7-14.9) 08/23/24 11:45 08/23/24 Urine Test Negative Negative 03/03/18 14:25 03/03/18 Pre-Assessment Diagnosis/Proposed Procedure Planned Operative Procedure(s): ercp Anesthesia History 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 When Was Last Pacemaker Check QUESTION #4 FULL TEXT: You/Your Family Experience fever (hyperthermia) with Anesthesia Last Oral Intake Last Oral intake: Last Oral Intake NPO since 08:30 11/29/24 13:58 Meds taken in AM with sips of Yes 11/29/24 13:58 water? Meds patient instructed to take am of surgery PONV PONV - dispatcher radioactive waste disposal: PONV - dispatcher radioactive waste disposal Female Yes 11/24/24 16:04 HX of Motion Sickness No 11/24/24 16:04 HX of N/V After Surgery No 11/24/24 16:04 Non-Smoker No 11/24/24 16:04 Duration of Surgery greater No 11/24/24 16:04 than 60 minutes Number of Risk Factors 1 11/24/24 16:04 PONV Score Low Risk 11/24/24 16:04 Height & Weight Height & Weight: Anesthesia: Height & Weight Height 5 ft 2 in 11/29/24 13:58 Weight: 72 kg 11/29/24 13:58 Body Mass Index (BMI) 29.0 11/29/24 13:58 Respiratory Assessment Respiratory Assessment - dispatcher radioactive waste disposal: Respiratory Tract Infection Hx - dispatcher radioactive waste disposal Hx Respiratory Tract Infection No 11/24/24 16:04 STOP Sleep Apnea STOP Sleep Apnea - dispatcher radioactive waste disposal: STOP Sleep Apnea - dispatcher radioactive waste disposal Hx Hypertension Yes 11/24/24 16:04 Hx Sleep Apnea No 11/24/24 16:04 CPAP No 07/21/24 17:55 BIPAP Yes: doesn't have to wear 06/06/22 16:26 bipap anymore Do you snore loudly (louder No 11/24/24 16:04 than talking or can be heard Do you often feel tired/ No 11/24/24 16:04 fatigued/ sleepy during daytime? Has anyone observed you stop No 11/24/24 16:04 breathing during sleep? STOP Results Negative 11/24/24 16:04 QUESTION #5 FULL TEXT : Do you snore loudly (louder than talking or can be heard through closed doors)? 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 Specify any problems Hx of Preganancy in last 3 No 11/24/24 16:04 Months Nurse Filling Out Transfusion JZOLLINGE 11/24/24 16:04 & Questions: Date: 11/24/24 11/24/24 16:04 Time: 16:07 11/24/24 16:04 Patient unable to answer at this time (ie. confused, unrespo /Reproduction History /Reproductive History - dispatcher radioactive waste disposal: /Reproductive Hx- dispatcher radioactive waste disposal Hx Now No 11/24/24 16:04 Gestational Age (in weeks): EDC: Hx Hx Para Hx Section SAB No 11/24/24 16:04 Active Medications Active Medications: Current Medications Generic Name Dose Route Start Last Admin Trade Name Freq PRN Reason Stop Dose Admin Lactated Ringer's 1,000 mls @ 15 mls/hr 11/29/24 13:45 11/29/24 13:58 IV 15 mls/hr .Q48H RANDI Administration PFSH Medical History Hx MRSA infection Alcohol use Restless legs Wears glasses Complete edentulism, class III Diabetes Walker as ambulation aid Bladder disease Low iron High cholesterol Dietary restriction History of hiatal hernia Gastric reflux Smoker Chronic bronchitis History of Holter monitoring History of echocardiogram History of stress test Cardiology follow-up encounter History of CHF (congestive heart failure) Chest pain PTSD (post-traumatic stress disorder) Vitamin deficiency Fatigue Headache Closed injury of head Insomnia Osteoporosis Chronic neck pain with history of cervical spinal surgery Chronic anticoagulation Mural thrombus of heart Hiatal hernia Chronic back pain History of peptic ulcer disease 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) Essential (primary) hypertension History of ST elevation myocardial infarction (STEMI) Major depression Multiple sclerosis Cervical spinal stenosis IBS (irritable bowel syndrome) RLS (restless legs syndrome) Takotsubo syndrome Atherosclerotic heart disease of [place] coronary artery without angina pectoris Typical atrial flutter Paroxysmal atrial fibrillation Left ventricular hypertrophy Chronic systolic (congestive) heart failure Ischemic cardiomyopathy Apical mural thrombus with acute [place] Vitamin B12 deficiency Irritable bowel syndrome with diarrhea Home Medications ?Medication ?Instructions ?Recorded ?Last Taken ?Type modafinil 200 mg tablet 200 mg PO DAILY FATIGUE 12/12/19 09/06/24 History acetaminophen 500 mg tablet 1,000 mg (2 x 500 mg) PO TID PRN 07/29/20 07/18/24 Rx pain -02/03 #1 TAB cholecalciferol (vitamin D3) 125 125 mcg PO DAILY supplement 11/05/21 09/06/24 History mcg (5,000 unit) capsule ferrous sulfate 325 mg (65 mg 325 mg PO DAILY supplement 11/05/21 09/06/24 History iron) tablet aspirin 81 mg tablet,delayed 81 mg PO DAILY heart health 04/01/22 10/09/24 History release (Adult Aspirin Regimen) ascorbic acid (vitamin C) 500 mg 500 mg PO DAILY supplement 06/06/22 09/06/24 History chewable tablet atorvastatin 40 mg tablet 40 mg PO QHS cholesterol 06/06/22 09/05/24 History denosumab 60 mg/mL subcutaneous 60 mg subcut [id number] bone health 06/06/22 07/21/24 History syringe (Prolia) albuterol sulfate 2.5 mg/3 mL 2.5 mg (3 mL) inhalation Q8H PRN 07/21/22 Unknown Rx (0.083 %) solution for nebulization Dyspnea, wheezing #180 mL blood sugar diagnostic (Accu-Chek #100 ea 07/29/22 Unknown Rx Ada Plus test strips) pantoprazole 40 mg tablet,delayed 40 mg PO DAILY gerd #90 tabs 09/04/22 11/29/24 Rx release donepezil 10 mg tablet 20 mg PO DAILY 09/11/22 09/06/24 History insulin lispro 100 unit/mL 1 sliding scale dose subcut QAC 09/11/22 09/06/24 History subcutaneous pen hydrocortisone 2.5 % topical cream 1 applic topical BID PRN skin 09/12/22 Unknown Rx irritation #454 grams albuterol sulfate 90 mcg/actuation 2 puff inhalation Q6H PRN 10/29/22 07/18/24 Rx aerosol inhaler shortness of breath or wheezing #8.5 grams vibegron 75 mg tablet (Gemtesa) 75 mg PO DAILY 01/30/23 09/06/24 History lidocaine 5 % topical patch 1 patch topical DAILY 06/22/23 09/06/24 History (Lidoderm) ropinirole 2 mg tablet 2 mg PO QHS restless leg 03/01/24 09/05/24 History sucralfate 1 gram tablet 1 g PO 4X/DAY reflux 03/01/24 09/06/24 History ropinirole 1 mg tablet 1 mg PO 1200 05/03/24 10/11/24 History fluorometholone 0.1 % eye 1 drp ophthalmic (eye) BID 07/10/24 09/06/24 History drops,suspension nystatin 100,000 unit/gram topical 1 applic topical BID PRN SKIN 03/24/25 05/13/25 History powder (Nystop) tizanidine 2 mg tablet 2 mg PO DAILY PRN pain 07/18/24 09/06/24 History duloxetine 30 mg capsule,delayed 30 mg PO BID mental health #180 08/01/24 09/06/24 Rx release (Cymbalta) caps hydroxyzine HCl 50 mg tablet 50 mg PO BID PRN anxiety #60 tabs 08/01/24 Unknown Rx apixaban 5 mg tablet (Eliquis) 5 mg PO BID #180 tabs 08/31/24 11/25/24 Rx tirzepatide 12.5 mg/0.5 mL 15 mg subcut TU 09/06/24 10/04/24 History subcutaneous pen injector (Mounjaro) ondansetron HCl 4 mg tablet 4 mg PO Q8H PRN nausea and 09/26/24 Unknown Rx vomiting #30 tabs carvedilol 6.25 mg tablet 6.25 mg PO BID #180 tabs 09/29/24 11/29/24 08:30 Rx dicyclomine 20 mg tablet 20 mg PO BID PRN IBS 09/29/24 Unknown History isosorbide mononitrate 30 mg 30 mg PO BID heart #180 tabs 09/29/24 11/29/24 Rx tablet,extended release 24 hr losartan 25 mg tablet 25 mg PO QDAY #90 tabs 09/29/24 11/29/24 Rx nitroglycerin 0.4 mg sublingual 0.4 mg sublingual Q5-15M #25 tabs 09/29/24 Unknown Rx tablet oxycodone-acetaminophen 5 mg-325 0.5 - 1 tab PO QDAY PRN pain 09/29/24 Unknown History mg tablet quetiapine 100 mg tablet 100 mg PO QHS #90 tabs 10/03/24 Unknown Rx quetiapine 25 mg tablet 25 mg PO QHS #90 tabs 10/03/24 Unknown Rx ramelteon 8 mg tablet 8 mg PO QHS PRN sleep #90 tabs 10/03/24 Unknown Rx Allergy/AdvReac Type Severity Reaction Status Date / Time vancomycin Allergy Severe Anaphylaxis Verified 11/27/24 12:26 indomethacin (From Indocin) Allergy Hives Verified 11/27/24 12:26 indomethacin sodium (From Allergy Hives Verified 11/27/24 12:26 Indocin) iodine Allergy Hives Verified 11/27/24 12:26 propoxyphene napsylate (From Allergy Out of Verified 11/27/24 12:26 Darvocet-N) control trazodone AdvReac Intermediate Other Verified 11/27/24 12:26 aripiprazole (From Abilify) AdvReac Other Verified 11/27/24 12:26 aspirin AdvReac Upset Verified 11/27/24 12:26 Stomach clindamycin AdvReac Nausea Verified 11/27/24 12:26 metformin AdvReac Other Verified 11/27/24 12:26 sumatriptan (From Imitrex) AdvReac Vomiting Verified 11/27/24 12:26 Family History Father Cancer Lung cancer Mother Cancer Pancreatic cancer Surgical History Hx of lumbosacral spine surgery Hx of bilateral cataract extraction (~03/2022) History of left heart catheterization (09/25/20) History of loop recorder (06/2014) History of amputation of left great toe History of left knee surgery History of tonsillectomy and adenoidectomy History of back surgery History of cervical discectomy History of coronary artery stent placement (04/08/16) Social History household members: none housing: house Smoking Status: Current every day smoker tobacco type: cigarettes alcohol intake: never substance use type: does not use caffeine: Yes Type: coffee Number of servings: 1 what type of physical activity do you participate in: none and other details: Physical Therapy Review of Systems (Anesthesia) ROS Narrative System reviewed and no additional complaints, except as documented.
--- NOTE | 2024-11-29 14:30 | FLU_PTH ---
PATIENT: ELO HERNANDEZ LOC: EN U#:[id number] AGE/SX: 68/F ROOM: RE11/29/[address]: Dr. Fabrice Jean DO : 1955 BED: DIS: 11/29/2024 SPEC #: [id number] RECD: 11/29/24 18:41 STATUS: IAM REEduardo #: [id number] ADI: 11/29/24 14:[address]: Fabrice Jean DEPT: CYTOLOGY RECD BY: Dean Pettit ENTERED: 11/30/24 09:23 SP TYPE: Fluid OTHR DR: Carlton Rocha, SAFETY ASSISTANT-C Tissues: A - Biliary tract, NOS Procedures: Special Stain Group II Surgery Specimen Level IV Cytospin Fluid HEADER OPERATION: ERCP PRE-OP DIAGNOSIS: Common bile duct stricture, dysphagia TISSUE SUBMITTED: A- Biliary stent for cytology DIAGNOSIS CYTOLOGY A. Biliary stent, common bile duct stricture (cytospin, cellblock): - Essentially acellular specimen. CYTOLOGY STUDY Slides are reviewed. CYTOLOGY GROSS A. Received is 10cm green stent labeled with the patient's name and and designated per the requisition as Biliary stent. Submitted for cytology and cell block preparation. Mr 11/30/2024 CPT: 64958.33000
--- NOTE | 2024-11-29 15:03 | PCM.HP.STD ---
HPI - General General Date of Admission: 11/29/24 Date of Service: 11/29/24 Chief Complaint: Biliary stent removal or exchange HPI Narrative ELO HERNANDEZ, is a 68 F who presents for follow-up ERCP with stent removal 08.01.24 OV [facility] consultation for CBD stricture and pancreatic duct dilatation. She had an MRCP and then ERCP with stent placement to CBD. FU ERCP scheduled for stent removal on 10.11.24. She reports that her abdominal pain is much more tolerable and rates pain 3/10. She presents today with concerns regarding difficulty swallowing. She is completely edentulous with poor-fitting dentures and prefers not to use them. She keeps her food moist and chews small bites well, but has started feeling like her food gets stuck at the top of her throat. She has MS and works with ST, PT, and OT. ST prompted her to have this new difficulty investigated. She denies sinus drainage, cough, reflux, abdominal bloating, hematochezia, and melena. She reports having to get multiple doses of magnesium citrate and rectal suppositories for constipation while an inpatient. She was finally able to have a BM at home and the stool transitioned to watery diarrhea. After 3 days of watery stool, she took an Imodium. ERCP repeat scheduled for 10.11.24 for stent removal. She wishes to transfer all of her GI care to [facility], from . She reports progressive generalized weakening from her MS and believes her swallowing is now affected. She is to continue working with ST and taking pantoprazole. 09.12.24 MBSS Impression: The oral phase is primarily marked by... -Decreased bolus control. Thin by straw spilled to the laryngeal vestibule prior to swallow onset, resulting in aspiration during the swallow. -Piecemeal deglutition, especially w/ large sips. ~50% of bolus in the oral cavity after the first swallow, mostly cleared w/ independent initiation of a second swallow. -Prolonged and decreased mastication w/ small pieces of the cookie appearing un-chewed. The pharyngeal phase is primarily marked by... -Overall, good pharyngeal motility. Trace pharyngeal residues. -Complete anterior hyoid excursion; however, decreased laryngeal elevation w/ aspiration of thin liquids via straw during the swallow. The esophageal phase is primarily marked by... -Retention of pudding and cookie in the esophagus, which mostly cleared w/ thin liquid wash; however, retention of thin liquids in the lower esophagus as well after the cookie trial. -Retrograde flow of liquids in the lower esophagus. Recommendations Diet: Soft and Bite Sized Textures and Thin Liquids Comment: STOP meal if sensation of retention despite use of strategies listed below and resume meal at a later time. Compensatory Strategies: Small Bites (Chew thoroughly), Small Sips, No Straws, Slow Rate (Take one bite and sip at a time), Alternate bites/solids and sips/liquids (Take 1-2 sips after each bite) and Sitting upright (During and 60min after the meal) Recommend Repeat Modified Barium Swallow: TBD Need for Skilled Speech Therapy Services: Yes 6.2.25 OV She reports an increase in abdominal pain, nausea, and gas. She is asking for recommendations on how to eat with and manage a hiatal hernia. She denies current concerns regarding her BMs. States that she still wants to transfer complete GI care over from to [facility]. [facility] Medical History Hx MRSA infection Alcohol use Restless legs Wears glasses Complete edentulism, class III Diabetes Walker as ambulation aid Bladder disease Low iron High cholesterol Dietary restriction History of hiatal hernia Gastric reflux Smoker Chronic bronchitis History of Holter monitoring History of echocardiogram History of stress test Cardiology follow-up encounter History of CHF (congestive heart failure) Chest pain PTSD (post-traumatic stress disorder) Vitamin deficiency Fatigue Headache Closed injury of head Insomnia Osteoporosis Chronic neck pain with history of cervical spinal surgery Chronic anticoagulation Mural thrombus of heart Hiatal hernia Chronic back pain History of peptic ulcer disease 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) Essential (primary) hypertension History of ST elevation myocardial infarction (STEMI) Major depression Multiple sclerosis Cervical spinal stenosis IBS (irritable bowel syndrome) RLS (restless legs syndrome) Takotsubo syndrome Atherosclerotic heart disease of [place] coronary artery without angina pectoris Typical atrial flutter Paroxysmal atrial fibrillation Left ventricular hypertrophy Chronic systolic (congestive) heart failure Ischemic cardiomyopathy Apical mural thrombus with acute AL Vitamin B12 deficiency Irritable bowel syndrome with diarrhea Home Medications ?Medication ?Instructions ?Recorded ?Last Taken ?Type modafinil 200 mg tablet 200 mg PO DAILY FATIGUE 12/12/19 09/06/24 History acetaminophen 500 mg tablet 1,000 mg (2 x 500 mg) PO TID PRN 07/29/20 07/18/24 Rx pain #1 TAB cholecalciferol (vitamin D3) 125 125 mcg PO DAILY supplement 11/05/21 09/06/24 History mcg (5,000 unit) capsule ferrous sulfate 325 mg (65 mg 325 mg PO DAILY supplement 11/05/21 09/06/24 History iron) tablet aspirin 81 mg tablet,delayed 81 mg PO DAILY heart health 04/01/22 10/09/24 History release (Adult Aspirin Regimen) ascorbic acid (vitamin C) 500 mg 500 mg PO DAILY supplement 06/06/22 09/06/24 History chewable tablet atorvastatin 40 mg tablet 40 mg PO QHS cholesterol 06/06/22 09/05/24 History denosumab 60 mg/mL subcutaneous 60 mg subcut [id number] bone health 06/06/22 07/21/24 History syringe (Prolia) albuterol sulfate 2.5 mg/3 mL 2.5 mg (3 mL) inhalation Q8H PRN 07/21/22 Unknown Rx (0.083 %) solution for nebulization Dyspnea, wheezing #180 mL blood sugar diagnostic (Accu-Chek #100 ea 07/29/22 Unknown Rx Ada Plus test strips) pantoprazole 40 mg tablet,delayed 40 mg PO DAILY gerd #90 tabs 09/04/22 11/29/24 Rx release donepezil 10 mg tablet 20 mg PO DAILY 09/11/22 09/06/24 History insulin lispro 100 unit/mL 1 sliding scale dose subcut QAC 09/11/22 09/06/24 History subcutaneous pen hydrocortisone 2.5 % topical cream 1 applic topical BID PRN skin 09/12/22 Unknown Rx irritation #454 grams albuterol sulfate 90 mcg/actuation 2 puff inhalation Q6H PRN 10/29/22 07/18/24 Rx aerosol inhaler shortness of breath or wheezing #8.5 grams vibegron 75 mg tablet (Gemtesa) 75 mg PO DAILY 01/30/23 09/06/24 History lidocaine 5 % topical patch 1 patch topical DAILY 06/22/23 09/06/24 History (Lidoderm) ropinirole 2 mg tablet 2 mg PO QHS restless leg 03/01/24 09/05/24 History sucralfate 1 gram tablet 1 g PO 4X/DAY reflux 03/01/24 09/06/24 History ropinirole 1 mg tablet 1 mg PO 1200 05/03/24 10/11/24 History fluorometholone 0.1 % eye 1 drp ophthalmic (eye) BID 07/10/24 09/06/24 History drops,suspension nystatin 100,000 unit/gram topical 1 applic topical BID PRN SKIN 07/18/24 09/06/24 History powder (Nystop) tizanidine 2 mg tablet 2 mg PO DAILY PRN pain 07/18/24 09/06/24 History duloxetine 30 mg capsule,delayed 30 mg PO BID mental health #180 08/01/24 09/06/24 Rx release (Cymbalta) caps hydroxyzine HCl 50 mg tablet 50 mg PO BID PRN anxiety #60 tabs 08/01/24 Unknown Rx apixaban 5 mg tablet (Eliquis) 5 mg PO BID #180 tabs 08/31/24 11/25/24 Rx tirzepatide 12.5 mg/0.5 mL 15 mg subcut TU 09/06/24 10/04/24 History subcutaneous pen injector (Aston) ondansetron HCl 4 mg tablet 4 mg PO Q8H PRN nausea and 09/26/24 Unknown Rx vomiting #30 tabs carvedilol 6.25 mg tablet 6.25 mg PO BID #180 tabs 09/29/24 11/29/24 08:30 Rx dicyclomine 20 mg tablet 20 mg PO BID PRN IBS 09/29/24 Unknown History isosorbide mononitrate 30 mg 30 mg PO BID heart #180 tabs 09/29/24 11/29/24 Rx tablet,extended release 24 hr losartan 25 mg tablet 25 mg PO QDAY #90 tabs 09/29/24 11/29/24 Rx nitroglycerin 0.4 mg sublingual 0.4 mg sublingual Q5-15M #25 tabs 09/29/24 Unknown Rx tablet oxycodone-acetaminophen 5 mg-325 0.5 - 1 tab PO QDAY PRN pain 09/29/24 Unknown History mg tablet quetiapine 100 mg tablet 100 mg PO QHS #90 tabs 10/03/24 Unknown Rx quetiapine 25 mg tablet 25 mg PO QHS #90 tabs 10/03/24 Unknown Rx ramelteon 8 mg tablet 8 mg PO QHS PRN sleep #90 tabs 10/03/24 Unknown Rx Allergy/AdvReac Type Severity Reaction Status Date / Time vancomycin Allergy Severe Anaphylaxis Verified 11/27/24 12:26 indomethacin (From Indocin) Allergy Hives Verified 11/27/24 12:26 indomethacin sodium (From Allergy Hives Verified 11/27/24 12:26 Indocin) iodine Allergy Hives Verified 11/27/24 12:26 propoxyphene napsylate (From Allergy Out of Verified 11/27/24 12:26 Darvocet-N) control trazodone AdvReac Intermediate Other Verified 11/27/24 12:26 aripiprazole (From Abilify) AdvReac Other Verified 11/27/24 12:26 aspirin AdvReac Upset Verified 11/27/24 12:26 Stomach clindamycin AdvReac Nausea Verified 11/27/24 12:26 metformin AdvReac Other Verified 11/27/24 12:26 sumatriptan (From Imitrex) AdvReac Vomiting Verified 11/27/24 12:26 Family History Father Cancer Lung cancer Mother Cancer Pancreatic cancer Surgical History Hx of lumbosacral spine surgery Hx of bilateral cataract extraction (~03/2022) History of left heart catheterization (09/25/20) History of loop recorder (06/2014) History of amputation of left great toe History of left knee surgery History of tonsillectomy and adenoidectomy History of back surgery History of cervical discectomy History of coronary artery stent placement (04/08/16) Social History household members: none housing: house Smoking Status: Current every day smoker tobacco type: cigarettes alcohol intake: never substance use type: does not use caffeine: Yes Type: coffee Number of servings: 1 what type of physical activity do you participate in: none and other details: Physical Therapy ROS Constitutional Constitutional: Denies fatigue, fever(s), poor appetite, weight gain or weight loss Gastrointestinal Gastrointestinal: Denies belching, bloating, change in bowel habits, change in stool character, chewing difficulty, coffee ground emesis, constipation, cramping, diarrhea, dyspepsia, dysphagia, early satiety, excessive flatus, fecal incontinence, heartburn, hematemesis, hematochezia, hemorrhoids, loose stools, melena, nausea, odynophagia, rectal bleeding, tenesmus, vomiting or weight changes Vital Signs Vital Signs Vital Signs: 11/29/24 13:58 11/29/24 13:58 11/29/24 14:17 Temperature 97.9 F 97.9 F Temperature Source Temporal Pulse Rate 52 L 52 L Respiratory Rate 16 16 Respiratory Pattern Normal Blood Pressure 140/51 H 140/51 H Blood Pressure Mean 80 Blood Pressure Source Monitor Blood Pressure Position Semi-Fowlers Blood Pressure Location Left Arm Pulse Ox 100 100 Oxygen Delivery Method Room Air Weight Weight: 158 lb 11.725 oz Body Mass Index (BMI) 29.0 Physical Exam Const alert, oriented x3, no apparent distress and healthy appearing General Appearance: cooperative GI normal to inspection, nondistended, normoactive bowel sounds, soft to palpation, non-tender and non-distended Percussion: normal to percussion Rectal Exam: deferred Results Lab / Micro Data Labs: Laboratory Results - last 24 hr 11/29/24 13:52: POC Glucose 166 H Assessment & Plan Assessment/Plan (1) Biliary stricture: PLAN: Assessment and Plan Assessment and Plan (1) Common bile duct stricture: Status: Acute (2) Dysphagia: Status: Acute Qualifiers: Dysphagia type: unspecified Qualified Code(s): R13.10 - Dysphagia, unspecified Medications: New ondansetron HCl 4 mg PO Q8H PRN 30 tabs 2RF nausea and vomiting Plan ELO HERNANDEZ, is a 68 F who presents to the office today for FU. She reports an increase in abdominal pain, nausea, and gas. She is asking for recommendations on how to eat with and manage a hiatal hernia. Discussed care plan with her. Reviewed results of MBSS and reinforced dietary recommendations. september scheduled ERCP to remove biliary stent continue pantoprazole 40mg PO daily refill ondansetron PRN continue ST eat small frequent meals, low to moderate fiber content continue to limit fatty and fried foods sign release of medical records in order to obtain all GI records from office [facility], in to see
--- NOTE | 2024-11-29 15:57 | OP.ERCP_ITS ---
Patient Name: Marisol Gray Procedure Date: 11/29/2024 3:10 PM Date of : 1955 Age: 68 Procedure: ERCP Indications: Biliary stent removal Providers: Fabrice Jean DO Referring MD: Carlton Rocha [facility], Asphalt Spreader Operator-c Medicines: Monitored Anesthesia Care Patient Profile: This is a 68 year old female. Refer to note in patient chart for documentation of history and physical. Patient has symptoms. Complications: No immediate complications. Procedure: Pre-Anesthesia Assessment: - Prior to the procedure, a History and Physical was performed, and patient medications and allergies were reviewed. The patient is competent. The risks and benefits of the procedure and the sedation options and risks were discussed with the patient. All questions were answered and informed consent was obtained. Patient identification and proposed procedure were verified by the physician in the pre-procedure area. Mental Status Examination: alert and oriented. Airway Examination: normal oropharyngeal airway and neck mobility. Respiratory Examination: clear to auscultation. CV Examination: normal. Prophylactic Antibiotics: The patient does not require prophylactic antibiotics. Prior Anticoagulants: The patient has taken no anticoagulant or antiplatelet agents. ASA Grade Assessment: III - A patient with severe systemic disease. After reviewing the risks and benefits, the patient was deemed in satisfactory condition to undergo the procedure. The anesthesia plan was to use monitored anesthesia care (MAC). Immediately prior to administration of medications, the patient was re-assessed for adequacy to receive sedatives. The heart rate, respiratory rate, oxygen saturations, blood pressure, adequacy of pulmonary ventilation, and response to care were monitored throughout the procedure. The physical status of the patient was re-assessed after the procedure. After obtaining informed consent, the scope was passed under direct vision. Throughout the procedure, the patient's blood pressure, pulse, and oxygen saturations were monitored continuously. The Duodenoscope was introduced through the mouth, and advanced to the duodenum and used to inject contrast into the bile duct. The ERCP was accomplished without difficulty. The patient tolerated the procedure well. Scope In: 3:26:44 PM Scope Out: 3:46:11 PM Total Procedure Duration Time 0 hours 19 minutes 27 seconds Findings: A biliary stent was visible on the financial processing clerk film. The esophagus was successfully intubated under direct vision. The scope was advanced to a normal major papilla in the descending duodenum without detailed examination of the pharynx, larynx and associated structures, and upper GI tract. The upper GI tract was grossly normal. A long 0.025 inch Jagwire was passed into the biliary tree. The short-nosed traction sphincterotome was passed over the guidewire and the bile duct was then deeply cannulated. Contrast was injected. I personally interpreted the bile duct images. There was brisk flow of contrast through the ducts. Image quality was adequate. Contrast extended to the entire biliary tree. Opacification of the entire biliary tree except for the gallbladder, entire opacified area and entire biliary tree was successful. The maximum diameter of the ducts was 12 mm. The lower third of the main bile duct contained a single moderate segmental stenosis less than 5 mm in length. The entire opacified area and entire biliary tree were diffusely dilated, acquired. The largest diameter was 12 mm. A cholecystectomy had been performed. A 5 mm biliary sphincterotomy was made with a braided traction (standard) sphincterotome using ERBE electrocautery. There was no post-sphincterotomy bleeding. The biliary tree was swept with a 12 mm balloon starting at the upper third of the main bile duct, middle third of the main bile duct, lower third of the main duct, bifurcation, left intrahepatic duct(s), left main hepatic duct, right intrahepatic duct(s) and right main hepatic duct. Sludge was swept from the duct. All stones were removed. One stent was removed from the biliary tree using a snare and sent for cytology. The stent was found to be partially occluded via the water column test. Impression: - A single segmental moderate biliary stricture was found in the lower third of the main bile duct. The stricture was benign appearing. - The entire biliary tree was dilated, acquired. - The patient has had a cholecystectomy. - Choledocholithiasis was found. Complete removal was accomplished by biliary sphincterotomy and balloon extraction. - A biliary sphincterotomy was performed. - The biliary tree was swept. - One stent was removed from the biliary tree. Procedure Code(s): --- Professional --- 21119, Endoscopic retrograde cholangiopancreatography (ERCP); with removal of foreign body(s) or stent(s) from biliary/pancreatic duct(s) 32629, Endoscopic retrograde cholangiopancreatography (ERCP); with removal of calculi/debris from biliary/pancreatic duct(s) 73240, Endoscopic retrograde cholangiopancreatography (ERCP); with sphincterotomy/papillotomy 15024, 26, Endoscopic catheterization of the biliary ductal system, radiological supervision and interpretation CPT copyright 2021 [employer]. All rights reserved. The codes documented in this report are preliminary and upon bowling alley refinisher review may be revised to meet current compliance requirements. Fabrice Jean DO 11/29/2024 3:57:17 PM This report has been signed electronically. Number of Addenda: 0 Note Initiated On: 11/29/2024 3:10 PM
--- NOTE | 2024-11-29 15:57 | PCM.POST.ANE ---
Anesthesia: Postop Eval I Current Vital Signs Temperature: 97.3 F Pulse Rate: 71 Blood Pressure: 153/78 Respiratory Rate: 16 Pulse Ox: 97 Assessment Airway patent: Yes Spontaneous unlabored respirations: Yes nausea: No Vomiting: No Anesthesia Complication: No Fluid Hydration Crystalloid volume administer (ml): 300 Total IV fluid infused: 300 Progress Note Anesthesia document: Postop Eval 1 completed: Yes
--- NOTE | 2024-11-29 15:58 | OP.PROVAT_ITS ---
11/29/2024 Carlton Rocha [facility], Cylinder Worker-c Re : ERCP procedure for Marisol Gray Dear Rocha This procedure was performed on Friday, November 29, 2024. My impressions and recommendations are as follows: Impressions : - A single segmental moderate biliary stricture was found in the lower third of the main bile duct. The stricture was benign appearing. - The entire biliary tree was dilated, acquired. - The patient has had a cholecystectomy. - Choledocholithiasis was found. Complete removal was accomplished by biliary sphincterotomy and balloon extraction. - A biliary sphincterotomy was performed. - The biliary tree was swept. - One stent was removed from the biliary tree. Recommendations : My findings are described in the full procedure note, which is enclosed. If I can be of further assistance, please feel free to contact me at . Sincerely, Fabrice Jean, 11/29/2024 3:57:17 PM This report has been signed electronically.
--- NOTE | 2024-11-29 20:13 | POSTOPAN2_ITS ---
Anesthesia Postop Eval I Sum Postop Eval Completion status Anesthesia document: Postop Eval 1 completed: Yes Anesthesia Postop Eval I Summary Anesthesia Postop Eval I Summary: Anesthesia Postop Eval I: Assessment Summary Airway patent Yes 11/29/24 15:57 CRIMINAL INTELLIGENCE SPECIALIST.[email or web address] Spontaneous unlabored Yes 11/29/24 15:57 CRIMINAL INTELLIGENCE SPECIALIST.TNES respirations Mental status nausea No 11/29/24 15:57 CRIMINAL INTELLIGENCE SPECIALIST.TNES Vomiting No 11/29/24 15:57 CRIMINAL INTELLIGENCE SPECIALIST.TNES Anesthesia Postop Eval I: Fluid Summary Crystalloid volume administer 300 11/29/24 15:57 CRIMINAL INTELLIGENCE SPECIALIST.TNES (ml) Colloids volume administered ( ml) Blood Product volume administered (ml) Total IV fluid infused 300 11/29/24 15:57 CRIMINAL INTELLIGENCE SPECIALIST.TNES Anesthesia Postop Eval I: Summary Notes Anesthesia Complication No 11/29/24 15:57 CRIMINAL INTELLIGENCE SPECIALIST.TNES Anesthesia Complication Comment: Post-operative progress note Anesthesia: Postop Eval II Evaluation Mental status: Awake and Calm Pain Level: 1 nausea: No Vomiting: No Complications Anesthesia Complication: No
--- NOTE | 2024-11-29 20:13 | PCM.POSTANE2 ---
Anesthesia Postop Eval I Sum Postop Eval Completion status Anesthesia document: Postop Eval 1 completed: Yes Anesthesia Postop Eval I Summary Anesthesia Postop Eval I Summary: Anesthesia Postop Eval I: Assessment Summary Airway patent Yes 11/29/24 15:57 MANAGER CORPORATE COMMUNICATIONS.TNES Spontaneous unlabored Yes 11/29/24 15:57 MANAGER CORPORATE COMMUNICATIONS.TNES respirations Mental status nausea No 11/29/24 15:57 MANAGER CORPORATE COMMUNICATIONS.TNES Vomiting No 11/29/24 15:57 MANAGER CORPORATE COMMUNICATIONS.TNES Anesthesia Postop Eval I: Fluid Summary Crystalloid volume administer 300 11/29/24 15:57 MANAGER CORPORATE COMMUNICATIONS.TNES (ml) Colloids volume administered ( ml) Blood Product volume administered (ml) Total IV fluid infused 300 11/29/24 15:57 MANAGER CORPORATE COMMUNICATIONS.TNES Anesthesia Postop Eval I: Summary Notes Anesthesia Complication No 11/29/24 15:57 MANAGER CORPORATE COMMUNICATIONS.TNES Anesthesia Complication Comment: Post-operative progress note Anesthesia: Postop Eval II Evaluation Mental status: Awake and Calm Pain Level: 1 nausea: No Vomiting: No Complications Anesthesia Complication: No
== END 2024-11-29 17:03 | disposition home or self-care (01) ==
LOC: EN 13:28 → AC 13:31
PROVIDERS: PCP Nurse Practitioner Family; Referring Provider Nurse Practitioner Family; Visit Provider Internal Medicine Gastroenterology
PROC: (CPT 43260; principal; 2024-11-29 14:10)
DX: K80.51 Calculus of bile duct without cholangitis or cholecystitis with obstruction (principal); Z79.4 Long term (current) use of insulin; E11.9 Type 2 diabetes mellitus without complications; Z79.01 Long term (current) use of anticoagulants; K86.89 Other specified diseases of pancreas; I25.10 Atherosclerotic heart disease of native coronary artery without angina pectoris; F17.210 Nicotine dependence, cigarettes, uncomplicated; E78.00 Pure hypercholesterolemia, unspecified; K21.9 Gastro-esophageal reflux disease without esophagitis; G89.29 Other chronic pain; R13.10 Dysphagia, unspecified; I25.5 Ischemic cardiomyopathy; Z79.85 Long-term (current) use of injectable non-insulin antidiabetic drugs; I25.2 Old myocardial infarction; Z86.14 Personal history of Methicillin resistant Staphylococcus aureus infection; I10 Essential (primary) hypertension; Z95.5 Presence of coronary angioplasty implant and graft; Z90.49 Acquired absence of other specified parts of digestive tract
CPT/HCPCS: 43275; 43262; 43264; 74330; 76000; 82962; 88108; 88305; 88313; J2405

== ENCOUNTER 2024-12-20 17:34 | Emergency (ER) | payer MEDICARE, MEDICAID, SELFPAY ==
[2016-07-13 11:45] VITALS: BMI 31.4
[2024-12-20 17:34] VITALS: BP 181/69; PULSE 62; PULSE 79; RESP 14; TEMP 36.8; O2SAT 100; O2SAT 97; BMI 27.7
--- NOTE | 2024-12-20 18:28 | EKG12_ITS ---
Test Reason : DYSRHYTHMIA Blood Pressure : */* mmHG Vent. Rate : 50 BPM Atrial Rate : 50 BPM P-R Int : 172 ms QRS Dur : 100 ms QT Int : 464 ms P-R-T Axes : 29 -35 68 degrees QTcB Int : 423 ms Sinus bradycardia Left axis deviation Septal infarct (cited on or before 21-Oct-2016) Inferior infarct (cited on or before 21-Oct-2016) Abnormal ECG Confirmed by MARJORIE VALENCIA ([id number]), desk editor ARABELLA CHRISTIANSON ([id number]) on 12/21/2024 1:52:19 PM Referred By: TB Confirmed By: MARJORIE VALENCIA
[2024-12-20 18:33] VITALS: BP 169/72; PULSE 56; RESP 12; O2SAT 99
--- NOTE | 2024-12-20 18:52 | EX.ED.DYSGE1 ---
HPI History of Present Illness Chief Complaint: Headache Narrative Narrative: Patient is a 69-year-old female with past medical history of diabetes, hypercholesteremia, GERD, congestive heart failure, PTSD, headaches, IBS, Takotsubo cardiomyopathy, paroxysmal atrial fibrillation on Eliquis, IBS who presents to the emergency department the chief complaint of elevated blood pressure and headache. Patient states that starting yesterday she developed a headache and notes that her blood pressure has been running high she states that she called the cardiology team and they increased her losartan from 25 mg once a day to twice a day. She states that she checked her blood pressure this evening and noted that it was high called EMS and noted that it is even higher. Patient states that she has been taking Tylenol at home for headache without any relief. [facility] Medical History Post-tubal ligation syndrome Hx MRSA infection Alcohol use Restless legs Wears glasses Complete edentulism, class III Diabetes Walker as ambulation aid Bladder disease Low iron High cholesterol Dietary restriction History of hiatal hernia Gastric reflux Smoker Chronic bronchitis History of Holter monitoring History of echocardiogram History of stress test Cardiology follow-up encounter History of CHF (congestive heart failure) Chest pain PTSD (post-traumatic stress disorder) Vitamin deficiency Fatigue Headache Closed injury of head Insomnia Osteoporosis Chronic neck pain with history of cervical spinal surgery Chronic anticoagulation Mural thrombus of heart Hiatal hernia Chronic back pain History of peptic ulcer disease 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) Essential (primary) hypertension History of ST elevation myocardial infarction (STEMI) Major depression Multiple sclerosis Cervical spinal stenosis IBS (irritable bowel syndrome) RLS (restless legs syndrome) Takotsubo syndrome Atherosclerotic heart disease of [place] coronary artery without angina pectoris Typical atrial flutter Paroxysmal atrial fibrillation Left ventricular hypertrophy Chronic systolic (congestive) heart failure Ischemic cardiomyopathy Apical mural thrombus with acute [place] Vitamin B12 deficiency Irritable bowel syndrome with diarrhea Home Medications ?Medication ?Instructions ?Recorded ?Last Taken ?Type modafinil 200 mg tablet 200 mg PO DAILY FATIGUE 12/12/19 09/06/24 History acetaminophen 500 mg tablet 1,000 mg (2 x 500 mg) PO TID PRN 07/29/20 07/18/24 Rx pain -02/03 #1 TAB cholecalciferol (vitamin D3) 125 125 mcg PO DAILY supplement 11/05/21 09/06/24 History mcg (5,000 unit) capsule ferrous sulfate 325 mg (65 mg 325 mg PO DAILY supplement 11/05/21 09/06/24 History iron) tablet aspirin 81 mg tablet,delayed 81 mg PO DAILY heart health 04/01/22 10/09/24 History release (Adult Aspirin Regimen) ascorbic acid (vitamin C) 500 mg 500 mg PO DAILY supplement 06/06/22 09/06/24 History chewable tablet atorvastatin 40 mg tablet 40 mg PO QHS cholesterol 06/06/22 09/05/24 History denosumab 60 mg/mL subcutaneous 60 mg subcut [id number] bone health 06/06/22 07/21/24 History syringe (Prolia) albuterol sulfate 2.5 mg/3 mL 2.5 mg (3 mL) inhalation Q8H PRN 07/21/22 Unknown Rx (0.083 %) solution for nebulization Dyspnea, wheezing #180 mL blood sugar diagnostic (Accu-Chek #100 ea 07/29/22 Unknown Rx Ada Plus test strips) pantoprazole 40 mg tablet,delayed 40 mg PO DAILY gerd #90 tabs 09/04/22 11/29/24 Rx release donepezil 10 mg tablet 20 mg PO DAILY 09/11/22 09/06/24 History insulin lispro 100 unit/mL 1 sliding scale dose subcut QAC 09/11/22 09/06/24 History subcutaneous pen hydrocortisone 2.5 % topical cream 1 applic topical BID PRN skin 09/12/22 Unknown Rx irritation #454 grams albuterol sulfate 90 mcg/actuation 2 puff inhalation Q6H PRN 10/29/22 07/18/24 Rx aerosol inhaler shortness of breath or wheezing #8.5 grams vibegron 75 mg tablet (Gemtesa) 75 mg PO DAILY 01/30/23 09/06/24 History lidocaine 5 % topical patch 1 patch topical DAILY 06/22/23 09/06/24 History (Lidoderm) ropinirole 2 mg tablet 2 mg PO QHS restless leg 03/01/24 09/05/24 History sucralfate 1 gram tablet 1 g PO 4X/DAY reflux 03/01/24 09/06/24 History ropinirole 1 mg tablet 1 mg PO 1200 05/03/24 10/11/24 History fluorometholone 0.1 % eye 1 drp ophthalmic (eye) BID 07/10/24 09/06/24 History drops,suspension nystatin 100,000 unit/gram topical 1 applic topical BID PRN SKIN 07/18/24 09/06/24 History powder (Nystop) tizanidine 2 mg tablet 2 mg PO DAILY PRN pain 07/18/24 09/06/24 History duloxetine 30 mg capsule,delayed 30 mg PO BID mental health #180 08/01/24 09/06/24 Rx release (Cymbalta) caps hydroxyzine HCl 50 mg tablet 50 mg PO BID PRN anxiety #60 tabs 08/01/24 Unknown Rx apixaban 5 mg tablet (Eliquis) 5 mg PO BID #180 tabs 08/31/24 11/25/24 Rx ondansetron HCl 4 mg tablet 4 mg PO Q8H PRN nausea and 09/26/24 Unknown Rx vomiting #30 tabs carvedilol 6.25 mg tablet 6.25 mg PO BID #180 tabs 09/29/24 11/29/24 08:30 Rx dicyclomine 20 mg tablet 20 mg PO BID PRN IBS 09/29/24 Unknown History isosorbide mononitrate 30 mg 30 mg PO BID heart #180 tabs 09/29/24 11/29/24 Rx tablet,extended release 24 hr nitroglycerin 0.4 mg sublingual 0.4 mg sublingual Q5-15M #25 tabs 09/29/24 Unknown Rx tablet oxycodone-acetaminophen 5 mg-325 0.5 - 1 tab PO QDAY PRN pain 09/29/24 Unknown History mg tablet quetiapine 100 mg tablet 100 mg PO QHS #90 tabs 10/03/24 Unknown Rx quetiapine 25 mg tablet 25 mg PO QHS #90 tabs 10/03/24 Unknown Rx ramelteon 8 mg tablet 8 mg PO QHS PRN sleep #90 tabs 10/03/24 Unknown Rx gabapentin 100 mg capsule 100 mg PO TID PRN 12/20/24 Unknown History losartan 25 mg tablet 25 mg PO BID #90 tabs 12/20/24 Unknown Rx tirzepatide 15 mg/0.5 mL 15 mg subcut QWEEK 12/20/24 Unknown History subcutaneous pen injector (Mounjaro) Allergy/AdvReac Type Severity Reaction Status Date / Time vancomycin Allergy Severe Anaphylaxis Verified 11/27/24 12:26 indomethacin (From Indocin) Allergy Hives Verified 11/27/24 12:26 indomethacin sodium (From Allergy Hives Verified 11/27/24 12:26 Indocin) iodine Allergy Hives Verified 11/27/24 12:26 propoxyphene napsylate (From Allergy Out of Verified 11/27/24 12:26 Darvocet-N) control trazodone AdvReac Intermediate Other Verified 11/27/24 12:26 aripiprazole (From Abilify) AdvReac Other Verified 11/27/24 12:26 aspirin AdvReac Upset Verified 11/27/24 12:26 Stomach clindamycin AdvReac Nausea Verified 11/27/24 12:26 metformin AdvReac Other Verified 11/27/24 12:26 sumatriptan (From Imitrex) AdvReac Vomiting Verified 11/27/24 12:26 Family History Father Cancer Lung cancer Mother Cancer Pancreatic cancer Surgical History History of carpal tunnel surgery Hx of lumbosacral spine surgery Hx of bilateral cataract extraction (~03/2022) History of left heart catheterization (09/25/20) History of loop recorder (06/2014) History of amputation of left great toe History of left knee surgery History of tonsillectomy and adenoidectomy History of back surgery History of cervical discectomy History of coronary artery stent placement (04/08/16) Social History household members: none housing: house Smoking Status: Current every day smoker tobacco type: cigarettes alcohol intake: never substance use type: does not use caffeine: Yes Type: coffee Number of servings: 1 what type of physical activity do you participate in: none and other details: Physical Therapy ROS ROS ED ROS Narrative Constitutional: Complains headache as noted above denies any lightness or dizziness Eyes: Denies double vision blurry vision Cardiovascular: Denies chest pain Respiratory: Denies shortness of breath Abdomen: Denies abdominal pain nausea vomit diarrhea : Denies any urinary symptoms Neurological: Denies any numbness, weakness, tingling Musculoskeletal: Denies back pain Skin: Denies any rashes or lesions EXAM Physical Exam Narrative Exam Narrative: General: Patient was lying in bed rest comfortably did not appear to be acute distress Head: Atraumatic, normocephalic Eyes: PERRL bilaterally, EOMI bilaterally, no conjunctival injection noted Neck: Soft, supple, trachea midline Cardiovascular: Regular rate and rhythm Respiratory: Clear to auscultation bilaterally Abdomen: No tenderness to palpation Extremities: +5/5 strength noted in the bilateral lower extremity, radial pulses +2/4 in the bilateral extremities Neurological: Patient follow commands knew that she was at [facility] years 2024. NIH of 0 GCS 15 Skin: Warm, dry, intact no rashes lesions noted Const Vital Signs: 12/20/24 17:34 12/20/24 17:34 12/20/24 18:33 Temperature 98.2 F Temperature Source Oral Pulse Rate 62 79 56 L Respiratory Rate 14 14 12 Blood Pressure 181/69 H 181/69 H 169/72 H Blood Pressure Mean 106 106 104 Pulse Ox 100 97 99 Oxygen Delivery Method Room Air Room Air Room Air 12/20/24 18:52 12/20/24 19:00 Temperature Temperature Source Pulse Rate 58 L Respiratory Rate 19 H Blood Pressure 169/72 H Blood Pressure Mean 104 Pulse Ox 100 Oxygen Delivery Method Room Air Room Air MDM MDM MDM Narrative Medical decision making narrative: Patient is a 69-year-old female who presents to the emergency department chief complaint of hypertension and headache. On the differential diagnose includes but not limited to migraine headache, tension headache, cluster headache, headache secondary to her hypertension, hypertensive emergency. Once workup is obtained reviewed she will be reevaluated. Patient given IV fluids and Reglan. Patient CBC reviewed showed no evidence leukocytosis white blood count normal at 6.9, hemoglobin 12.4, platelet count was noted be 194. Patient's sodium was 141, potassium mildly low at 3 should be given 40 mill equivalents of supplementation in the emergency department, creatinine normal at 0.73. Patient calcium level 10.4. Patient's EKG showed sinus bradycardia with a rate of 50 bpm. I reevaluated the patient and she is resting comfortably and feeling much better she would like to go home at this point time. Patient advised to follow-up with her primary care physician outpatient and return with worsening symptoms or any concerns. She is agreeable spinal course concerns answered she is discharged home in stable condition Lab Data Labs: Laboratory Results - last 24 hr 12/20/24 17:40 WBC 6.9 RBC 4.28 Hgb 12.4 Hct 37.2 MCV 86.9 MCH 29.0 MCHC 33.3 RDW Std Deviation 41.9 RDW Coeff of Ye[place] 13.3 Plt Count 194 MPV 9.6 Immature Gran % (Auto) 0.300 Neut % (Auto) 64.9 Lymph % (Auto) 24.0 [place] % (Auto) 7.1 Eos % (Auto) 3.0 Baso % (Auto) 0.7 Absolute Neuts (auto) 4.5 Absolute Lymphs (auto) 1.66 Nucleated RBC % 0 Sodium 141 Potassium 3.0 L Chloride 102 Carbon Dioxide 26.3 Anion Gap 13 BUN 18 Creatinine 0.73 Estim Creat Clear Calc 59.48 Est GFR (MDRD) Non-Af 88 BUN/Creatinine Ratio 24.7 H Glucose 231 H Calcium 10.4 Discharge Plan Triage Chief Complaint: Headache ED Provider: Kodi Kramer Dx/Rx/DC Orders Clinical Impression: Essential (primary) hypertension, Headache, Hypercholesteremia Prescriptions: No Action cholecalciferol (vitamin D3) 125 mcg (5,000 unit) capsule 125 mcg PO DAILY ferrous sulfate 325 mg (65 mg iron) tablet 325 mg PO DAILY aspirin [Adult Aspirin Regimen] 81 mg tablet,delayed release (DR/EC) 81 mg PO DAILY donepezil 10 mg tablet 20 mg PO DAILY Rx Instructions: with lunch insulin lispro 100 unit/mL insulin pen 1 sliding scale dose subcut QAC Patient Comments: Use with meals based on PRE meal blood sugar SLIDING SCALE as needed #1 (1 unit for every 50 over 150) Max 20 units daily. albuterol sulfate 2.5 mg /3 mL (0.083 %) solution for nebulization 2.5 mg inhalation Q8H PRN (Reason: Dyspnea, wheezing) Qty: 180 0RF hydrocortisone 2.5 % cream 1 applic topical BID PRN (Reason: skin irritation) Qty: 454 1RF Gemtesa 75 mg tablet 75 mg PO DAILY lidocaine [Lidoderm] 5 % adhesive patch,medicated 1 patch topical DAILY Rx Instructions: leave on most painful area for up to 12 hrs ropinirole 1 mg tablet 1 mg PO 1200 Rx Instructions: 1mg at lunch and 2mg at HS ropinirole 2 mg tablet 2 mg PO QHS Rx Instructions: 1mg at lunch and 2mg at HS sucralfate 1 gram tablet 1 g PO 4X/DAY oxycodone-acetaminophen 5-325 mg tablet 0.5 - 1 tab PO QDAY PRN (Reason: pain) carvedilol 6.25 mg tablet 6.25 mg PO BID Qty: 180 3RF Rx Instructions: must administer with a meal/food isosorbide mononitrate 30 mg tablet extended release 24 hr 30 mg PO BID Qty: 180 3RF nitroglycerin 0.4 mg tablet, sublingual 0.4 mg sublingual Q5-15M Qty: 25 3RF hydroxyzine HCl 50 mg tablet 50 mg PO BID PRN (Reason: anxiety) Qty: 60 1RF duloxetine [Cymbalta] 30 mg capsule,delayed release(DR/EC) 30 mg PO BID Qty: 180 2RF ramelteon 8 mg tablet 8 mg PO QHS PRN (Reason: sleep) Qty: 90 1RF quetiapine 100 mg tablet 100 mg PO QHS Qty: 90 1RF quetiapine 25 mg tablet 25 mg PO QHS Qty: 90 1RF Rx Instructions: To be taken with 100 mg tablet at bedtime for nightly dose of 125 mg qHS ondansetron HCl 4 mg tablet 4 mg PO Q8H PRN Qty: 30 2RF modafinil 200 MG tablet 200 mg PO DAILY acetaminophen 500 MG tablet 1,000 mg PO TID PRN (Reason: pain 1-02/03) Qty: 1 0RF Rx Instructions: alternate with ibuprofen atorvastatin 40 mg tablet 40 mg PO QHS ascorbic acid (vitamin C) 500 mg tablet,chewable 500 mg PO DAILY Prolia 60 mg/mL syringe 60 mg subcut [id number] Patient Comments: PT STATES LAST GIVEN END OF JUNE tizanidine 2 mg tablet 2 mg PO DAILY PRN (Reason: pain) Rx Instructions: TAKE 1 TABLET BY MOUTH EVERY MORNING and 1 to 2 TABLETS AT BEDTIME NEEDED FOR PAIN control nystatin [Nystop] 100,000 unit/gram powder 1 applic topical BID PRN (Reason: SKIN) gabapentin 100 mg capsule 100 mg PO TID PRN Mounjaro 15 mg/0.5 mL pen injector 15 mg subcut QWEEK fluorometholone 0.1 % drops,suspension 1 drp ophthalmic (eye) BID dicyclomine 20 mg tablet 20 mg PO BID PRN (Reason: IBS) (DME) Accu-Chek Ada Plus test strp Strip See Rx Instructions .Route Qty: 100 6RF Rx Instructions: As directed pantoprazole 40 mg tablet,delayed release (DR/EC) 40 mg PO DAILY Qty: 90 1RF albuterol sulfate 90 mcg/actuation HFA aerosol inhaler 2 puff inhalation Q6H PRN (Reason: shortness of breath or wheezing) Qty: 8.5 2RF Eliquis 5 mg tablet 5 mg PO BID Qty: 180 3RF losartan 25 mg tablet 25 mg PO BID Qty: 90 3RF Primary Care Provider: Carlton Rocha Referrals: Carlton Rocha, [employer] [Primary Care Provider] - Activity Restrictions/Additional Instructions: Follow-up with your doctor in the outpatient setting in regards to your blood pressure. Continue to use Tylenol for pain control and ensure adequate hydration. Return with worsening symptoms or any concerns. Your blood work here today not show any acute findings. Print Language: [place]og[place]ese Disposition Disposition: Home, Self Care
[2024-12-20 18:54] LABS: Hematocrit 37.2 % (37-47); Hemoglobin 12.4 g/dL (12.0-15.0); Immature Granulocytes Count 0.020 X10^3/uL (0.0-0.0); Mean Corp Hgb Conc 33.3 g/dL (32-36); Mean Corpuscular Volume 86.9 fL (81-99); Mean Platelet Vol. 9.6 fl (6.2-12.0); NRBC Flagged by Analyzer 0 % (0-5); Platelet Count 194 K/mm3 (150-450); RBC Distribution Width CV 13.3 % (11.6-14.6); RBC Distribution Width SD 41.9 fl (35.1-43.9); Red Blood Count 4.28 M/mm3 (4.2-5.4); White Blood Count 6.9 K/mm3 (4.4-11.0)
[2024-12-20 19:00] VITALS: BP 169/72; PULSE 58; RESP 19; O2SAT 100
[2024-12-20 19:27] LABS: Anion Gap 13 (5-15); BUN 18 mg/dL (4-19); BUN/Creat Ratio 24.7 RATIO (10-20); Calcium,Total 10.4 mg/dL (7.6-11.0); Carbon Dioxide 26.3 mmol/L (21.0-32.0); Chloride 102 mmol/L (98-108); Estimated Creatinine Clearance 59.48 ml/min (50-250); Glucose 231 mg/dL (70-99); Potassium 3.0 mmol/L (3.3-5.1)
[2024-12-20 21:00] VITALS: BP 218/106; PULSE 69; RESP 20; O2SAT 94
--- NOTE | 2024-12-20 21:10 | ED.RN ---
RN to bedside for D/C, BP over 200s systolic. Dr. Kramer notified, ordered home meds. pt stated that she had a COTTRE[place] and that she would have to call for a ride home. RN in to room to give home BP medications, pt is unresponsive, will open eyes to sternal rub. pupils pinpoint. Angelica Rn to bedside for further assessment since this RN just came back from lunch break. Angelica AJ stated this was a change from when pt walked to bathroom approx. 20 minutes prior to episode, blood sugar obtained. Dr. Kramer called to room, verbal order for narcan 1mg IV push. Given by Angelica AJ. Shortly after pt started to become more responsive, pupils more round and reactive. Taken to CT, pt sitting upright in bed unassisted.
--- NOTE | 2024-12-20 21:25 | CT_ITS ---
PROCEDURE: BRAIN/HEAD WITHOUT CONTRAST 12/20/2024 REASON FOR EXAM: AMS TECHNIQUE: BRAIN/HEAD WITHOUT CONTRAST Coronal and Sagittal reconstruction series were provided. One or more dose reduction techniques were used (e.g., Automated exposure control, adjustment of the mA and/or kV according to patient size, use of iterative reconstruction technique. RADIATION DOSE SUMMARY: CTDlvol: 45 mGy DLP: 846 mGycm COMPARISON: 11/27/2024 FINDINGS: The brainstem and cerebellum demonstrate no hemorrhage. Prior lacunar infarct right cerebellar hemisphere. Mild atrophy with compensatory ventricular enlargement. Extensive chronic small-vessel ischemic change. CT/Brain/Head without Contrast IMPRESSION: No acute abnormality Reading Location: [facility]
[2024-12-20 22:00] VITALS: BP 192/87; PULSE 49; RESP 20; O2SAT 95
[2024-12-20 23:00] VITALS: BP 170/84; PULSE 60; RESP 18; O2SAT 95
[2024-12-21 00:08] VITALS: BP 140/101; PULSE 87; RESP 15; TEMP 36.8; O2SAT 96
--- NOTE | 2024-12-21 00:08 | ED.RN ---
pt had this RN call for [facility] ETA 20 min.
== END 2024-12-21 00:02 | disposition home or self-care (01) ==
PROVIDERS: Emergency Provider Emergency Medicine; PCP Nurse Practitioner Family; Visit Provider Emergency Medicine
DX: I11.0 Hypertensive heart disease with heart failure (principal); I50.9 Heart failure, unspecified; I48.0 Paroxysmal atrial fibrillation; E11.9 Type 2 diabetes mellitus without complications; Z79.4 Long term (current) use of insulin; E78.00 Pure hypercholesterolemia, unspecified; I25.10 Atherosclerotic heart disease of native coronary artery without angina pectoris; F17.210 Nicotine dependence, cigarettes, uncomplicated; R51.9 Headache, unspecified; Z98.51 Tubal ligation status; I25.2 Old myocardial infarction; Z79.82 Long term (current) use of aspirin; Z79.899 Other long term (current) drug therapy; K21.9 Gastro-esophageal reflux disease without esophagitis; G25.81 Restless legs syndrome; Z79.01 Long term (current) use of anticoagulants; F32.9 Major depressive disorder, single episode, unspecified; Z98.41 Cataract extraction status, right eye; Z98.42 Cataract extraction status, left eye; Z95.5 Presence of coronary angioplasty implant and graft
CPT/HCPCS: 70450; 80048; 82962; 85025; 93005; 96374; 96375; 99285; A4216

== ENCOUNTER 2025-01-12 09:49 | Inpatient (IN) | payer MEDICARE, MEDICAID, SELFPAY ==
[2016-07-13 11:45] VITALS: BMI 31.4
[2025-01-12] VITALS (24 sets, daily range): BP systolic 132–193; BP diastolic 74–109; PULSE 86–98; RESP 10–31; TEMP 36.6–37.3; O2SAT 94–100; BMI 27.9; BMI 26.8
--- NOTE | 2025-01-12 11:14 | EKG12_ITS ---
Test Reason : CP Blood Pressure : */* mmHG Vent. Rate : 92 BPM Atrial Rate : 92 BPM P-R Int : 84 ms QRS Dur : 112 ms QT Int : 274 ms P-R-T Axes : 42 -56 173 degrees QTcB Int : 338 ms Sinus rhythm with short MT Left axis deviation Minimal voltage criteria for LVH, may be normal variant ( Rory product ) Confirmed by ALLAN WITT, DORYS ([id number]), senior editor ARABELLA CHRISTIANSON ([id number]) on 01/13/2025 10:46:22 AM Referred By: PK/THOMAS Confirmed By: DORYS LEMUS MD
[2025-01-12 11:31] LABS: Hematocrit 41.8 % (37-47); Hemoglobin 14.3 g/dL (12.0-15.0); Immature Granulocytes Count 0.080 X10^3/uL (0.0-0.0); Mean Corp Hgb Conc 34.2 g/dL (32-36); Mean Corpuscular Volume 86.0 fL (81-99); Mean Platelet Vol. 10.1 fl (6.2-12.0); NRBC Flagged by Analyzer 0 % (0-5); Platelet Count 212 K/mm3 (150-450); RBC Distribution Width CV 13.2 % (11.6-14.6); RBC Distribution Width SD 41.5 fl (35.1-43.9); Red Blood Count 4.86 M/mm3 (4.2-5.4); White Blood Count 14.3 K/mm3 (4.4-11.0)
--- NOTE | 2025-01-12 11:40 | RAD_ITS ---
PROCEDURE: CHEST PA AND LATERAL 01/12/2025 REASON FOR EXAM: CHEST PAIN TECHNIQUE: Procedure Code: RADCXR Modality: DX Procedure: CHEST PA AND LATERAL COMPARISON: Chest x-ray 09/06/24 FINDINGS: Hardware: Monitoring electrodes overlying chest wall. Loop recorder overlying left lower chest. Heart: Heart size is mildly enlarged. Mediastinum: The mediastinal contour is unremarkable. Lungs: Bilateral pulmonary vascular congestion. Bones: Age-related degenerative changes. Partially visualized ACDF within cervical neck. RAD/Chest PA and Lateral IMPRESSION: Bilateral pulmonary vascular congestion. Reading Location: [id number]
--- NOTE | 2025-01-12 11:40 | RAD_ITS ---
PROCEDURE: CERV SPINE 2 OR 3 VIEWS 01/12/2025 REASON FOR EXAM: PAIN TECHNIQUE: Procedure Code: RADSPCL Modality: DX Procedure: CERV SPINE 2 OR 3 VIEWS COMPARISON: March 12, 2021 FINDINGS: There is posterior fusion hardware from C 4-6, unchanged. There is loss of the lordosis. Soft tissues are unremarkable. Mineralization is normal. RAD/Cerv Spine 2 or 3 Views IMPRESSION: Hardware in position, with no significant interval change. Reading Location: [facility]
--- NOTE | 2025-01-12 11:40 | RAD_ITS ---
PROCEDURE: SHOULDER MIN 2 VIEWS 01/12/2025 REASON FOR EXAM: PAIN TECHNIQUE: Procedure Code: RADSH Modality: DX Procedure: SHOULDER MIN 2 VIEWS Laterality: Left shoulder COMPARISON: Comparison is made with prior study dated November 26, 2024. FINDINGS: Bones: No fracture seen. Joints: Normal alignment of the acromioclavicular and glenohumeral joints. Soft tissues: Soft tissues are unremarkable. Other: RAD/Shoulder min 2 Views IMPRESSION: NO ACUTE FRACTURE OR DISLOCATION. Reading Location: [place] [id number]
[2025-01-12 11:52] LABS: Troponin T High Sensitivity 32 ng/L (<=14)
[2025-01-12 11:54] LABS: Anion Gap 14 (5-15); BUN 10 mg/dL (4-19); BUN/Creat Ratio 16.7 RATIO (10-20); Calcium,Total 10.6 mg/dL (7.6-11.0); Carbon Dioxide 27.1 mmol/L (21.0-32.0); Chloride 97 mmol/L (98-108); Estimated Creatinine Clearance 59.69 ml/min (50-250); Glucose 186 mg/dL (70-99); Potassium 2.3 mmol/L (3.3-5.1)
--- NOTE | 2025-01-12 11:55 | ED.RN ---
Critical K+ of 2.[address] Carballo notified.
[2025-01-12] MEDS: 0.9% Normal Saline (1000mL) 1,000 ML 150 ML IV (11:57)
[2025-01-12 13:10] LABS: Magnesium 1.6 mg/dL (1.5-2.2)
[2025-01-12] MEDS: Potassium Chloride 10mEq/100mL 10 MEQ/100 ML IV.SOLN. 100 MEQ IV BOLUS (13:45)
[2025-01-12 13:57] LABS: Troponin T High Sens 2 HR 33 ng/L (<=14)
[2025-01-12] MEDS: Potassium Chloride Oral Soln 20 MEQ/15 ML UDC PO (14:01)
[2025-01-12 15:01] LABS: Pro- Brain NATRIURETIC PEPTIDE 2237 pg/mL (<=900)
--- NOTE | 2025-01-12 15:29 | ED.VIS.CHEST ---
HPI History of Present Illness Chief Complaint: Chest Pain Informant: patient Narrative Narrative: Patient is a 69-year-old female with history of ischemic cardiomyopathy, PTSD, hyperlipidemia, coronary artery disease and hypertension as well as chronic anticoagulation on Eliquis (for atrial fibrillation) presenting with chest pain. Patient states she has been having pain in the left side of her chest that goes to her shoulder and into her neck since yesterday. She notes she does have some ongoing left shoulder pain and x-ray to PT evaluation yesterday. They put kinetic tape on her shoulder. She states that the pain is worsening and she does not feel she can move her arm or neck because of the pain. She also notes her blood pressure has been elevated. She took Tylenol and a half of baclofen this morning with no relief of her symptoms. She denies any associate injuries. She denies any swelling. She denies any fever or chills. Denies any URI symptoms. Denies any cough or shortness of breath. Denies any associate abdominal pain or nausea or vomiting. No other complaints or concerns at this time. [facility] Medical History Post-tubal ligation syndrome Hx MRSA infection Alcohol use Restless legs Wears glasses Complete edentulism, class III Diabetes Walker as ambulation aid Bladder disease Low iron High cholesterol Dietary restriction History of hiatal hernia Gastric reflux Smoker Chronic bronchitis History of Holter monitoring History of echocardiogram History of stress test Cardiology follow-up encounter History of CHF (congestive heart failure) Chest pain PTSD (post-traumatic stress disorder) Vitamin deficiency Fatigue Headache Closed injury of head Insomnia Osteoporosis Chronic neck pain with history of cervical spinal surgery Chronic anticoagulation Mural thrombus of heart Hiatal hernia Chronic back pain History of peptic ulcer disease 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) Essential (primary) hypertension History of ST elevation myocardial infarction (STEMI) Major depression Multiple sclerosis Cervical spinal stenosis IBS (irritable bowel syndrome) RLS (restless legs syndrome) Takotsubo syndrome Atherosclerotic heart disease of [place] coronary artery without angina pectoris Typical atrial flutter Paroxysmal atrial fibrillation Left ventricular hypertrophy Chronic systolic (congestive) heart failure Ischemic cardiomyopathy Apical mural thrombus with acute NV Vitamin B12 deficiency Irritable bowel syndrome with diarrhea Home Medications ?Medication ?Instructions ?Recorded ?Last Taken ?Type modafinil 200 mg tablet 200 mg PO DAILY FATIGUE 12/12/19 09/06/24 History acetaminophen 500 mg tablet 1,000 mg (2 x 500 mg) PO TID PRN 07/29/20 07/18/24 Rx pain -02/03 #1 TAB cholecalciferol (vitamin D3) 125 125 mcg PO DAILY supplement 11/05/21 09/06/24 History mcg (5,000 unit) capsule ferrous sulfate 325 mg (65 mg 325 mg PO DAILY supplement 11/05/21 09/06/24 History iron) tablet aspirin 81 mg tablet,delayed 81 mg PO DAILY heart health 04/01/22 10/09/24 History release (Adult Aspirin Regimen) ascorbic acid (vitamin C) 500 mg 500 mg PO DAILY supplement 06/06/22 09/06/24 History chewable tablet atorvastatin 40 mg tablet 40 mg PO QHS cholesterol 06/06/22 09/05/24 History denosumab 60 mg/mL subcutaneous 60 mg subcut [id number] bone health 06/06/22 07/21/24 History syringe (Prolia) albuterol sulfate 2.5 mg/3 mL 2.5 mg (3 mL) inhalation Q8H PRN 07/21/22 Unknown Rx (0.083 %) solution for nebulization Dyspnea, wheezing #180 mL blood sugar diagnostic (Accu-Chek #100 ea 07/29/22 Unknown Rx Ada Plus test strips) pantoprazole 40 mg tablet,delayed 40 mg PO DAILY gerd #90 tabs 09/04/22 11/29/24 Rx release donepezil 10 mg tablet 20 mg PO DAILY 09/11/22 09/06/24 History insulin lispro 100 unit/mL 1 sliding scale dose subcut QAC 09/11/22 09/06/24 History subcutaneous pen hydrocortisone 2.5 % topical cream 1 applic topical BID PRN skin 09/12/22 Unknown Rx irritation #454 grams albuterol sulfate 90 mcg/actuation 2 puff inhalation Q6H PRN 10/29/22 07/18/24 Rx aerosol inhaler shortness of breath or wheezing #8.5 grams vibegron 75 mg tablet (Gemtesa) 75 mg PO DAILY 01/30/23 09/06/24 History lidocaine 5 % topical patch 1 patch topical DAILY 06/22/23 09/06/24 History (Lidoderm) ropinirole 2 mg tablet 2 mg PO QHS restless leg 03/01/24 09/05/24 History sucralfate 1 gram tablet 1 g PO 4X/DAY reflux 03/01/24 09/06/24 History ropinirole 1 mg tablet 1 mg PO 1200 05/03/24 10/11/24 History fluorometholone 0.1 % eye 1 drp ophthalmic (eye) BID 07/10/24 09/06/24 History drops,suspension nystatin 100,000 unit/gram topical 1 applic topical BID PRN SKIN 07/18/24 09/06/24 History powder (Nystop) tizanidine 2 mg tablet 2 mg PO DAILY PRN pain 07/18/24 09/06/24 History hydroxyzine HCl 50 mg tablet 50 mg PO BID PRN anxiety #60 tabs 08/01/24 Unknown Rx apixaban 5 mg tablet (Eliquis) 5 mg PO BID #180 tabs 08/31/24 11/25/24 Rx ondansetron HCl 4 mg tablet 4 mg PO Q8H PRN nausea and 09/26/24 Unknown Rx vomiting #30 tabs carvedilol 6.25 mg tablet 6.25 mg PO BID #180 tabs 09/29/24 11/29/24 08:30 Rx dicyclomine 20 mg tablet 20 mg PO BID PRN IBS 09/29/24 Unknown History isosorbide mononitrate 30 mg 30 mg PO BID heart #180 tabs 09/29/24 11/29/24 Rx tablet,extended release 24 hr nitroglycerin 0.4 mg sublingual 0.4 mg sublingual Q5-15M #25 tabs 09/29/24 Unknown Rx tablet oxycodone-acetaminophen 5 mg-325 0.5 - 1 tab PO QDAY PRN pain 09/29/24 Unknown History mg tablet quetiapine 100 mg tablet 100 mg PO QHS #90 tabs 10/03/24 Unknown Rx ramelteon 8 mg tablet 8 mg PO QHS PRN sleep #90 tabs 10/03/24 Unknown Rx tirzepatide 15 mg/0.5 mL 15 mg subcut QWEEK 12/20/24 Unknown History subcutaneous pen injector (Mounjaro) losartan 50 mg tablet 50 mg PO BID Dose increased after 12/21/24 Unknown Rx ER visit last night #180 tabs duloxetine 30 mg capsule,delayed 30 mg PO BID mental health #180 01/10/25 Unknown Rx release caps gabapentin 300 mg capsule 300 mg PO QDAY 01/10/25 Unknown History baclofen 10 mg tablet 10 mg PO TID 01/12/25 Unknown History Allergy/AdvReac Type Severity Reaction Status Date / Time vancomycin Allergy Severe Anaphylaxis Verified 01/12/25 09:50 indomethacin (From Indocin) Allergy Hives Verified 01/12/25 09:50 indomethacin sodium (From Allergy Hives Verified 01/12/25 09:50 Indocin) iodine Allergy Hives Verified 01/12/25 09:50 propoxyphene napsylate (From Allergy Out of Verified 01/12/25 09:50 Darvocet-N) control trazodone AdvReac Intermediate Other Verified 01/12/25 09:50 aripiprazole (From Abilify) AdvReac Other Verified 01/12/25 09:50 aspirin AdvReac Upset Verified 01/12/25 09:50 Stomach clindamycin AdvReac Nausea Verified 01/12/25 09:50 metformin AdvReac Other Verified 01/12/25 09:50 sumatriptan (From Imitrex) AdvReac Vomiting Verified 01/12/25 09:50 Family History Father Cancer Lung cancer Mother Cancer Pancreatic cancer Surgical History History of carpal tunnel surgery Hx of lumbosacral spine surgery Hx of bilateral cataract extraction (~03/2022) History of left heart catheterization (09/25/20) History of loop recorder (06/2014) History of amputation of left great toe History of left knee surgery History of tonsillectomy and adenoidectomy History of back surgery History of cervical discectomy History of coronary artery stent placement (04/08/16) Social History household members: none housing: house Smoking Status: Current every day smoker tobacco type: cigarettes alcohol intake: never substance use type: does not use caffeine: Yes Type: coffee Number of servings: 1 what type of physical activity do you participate in: none and other details: Physical Therapy ROS ROS ED Constitutional Constitutional ED: Denies chills or fever(s) ENT ENT ED: Denies sore throat Cardiovascular Cardiovascular: Reports as per HPI and chest pain; Denies palpitations or racing heartbeat Respiratory/Chest Respiratory/Chest: Denies cough or dyspnea Gastrointestinal Gastrointestinal: Denies abdominal pain, nausea or vomiting Musculoskeletal Musculoskeletal: Reports arthralgias, neck pain and other Details: left shoulder pain Integumentary Denies rash Neurologic Neurologic: Denies paresthesias or weakness Psychiatric Psychiatric: Reports anxiety Hematologic/Lymphatic Hematologic/Lymphatic: Reports easy bleeding and easy bruising EXAM Physical Exam Const Vital Signs: 01/12/25 09:49 01/12/25 10:25 01/12/25 10:50 Temperature 98 F Temperature Source Temporal Pulse Rate 94 89 Respiratory Rate 14 26 H Respiratory Effort Normal Non-Labored Blood Pressure 175/92 H Blood Pressure Mean 119 Pulse Ox 98 94 Oxygen Delivery Method Room Air 01/12/25 11:00 01/12/25 11:13 01/12/25 11:15 Temperature Temperature Source Pulse Rate 89 98 87 Respiratory Rate 23 H 19 H 18 Respiratory Effort Blood Pressure 185/89 H 188/94 H 193/93 H Blood Pressure Mean 116 120 121 Pulse Ox 96 98 95 Oxygen Delivery Method 01/12/25 11:23 01/12/25 11:30 01/12/25 11:37 Temperature Temperature Source Pulse Rate Respiratory Rate Respiratory Effort Blood Pressure 183/88 H Blood Pressure Mean 115 Pulse Ox 98 Oxygen Delivery Method Room Air 01/12/25 11:45 01/12/25 11:48 01/12/25 12:00 Temperature Temperature Source Pulse Rate 91 Respiratory Rate 13 Respiratory Effort Blood Pressure 132/89 H 189/93 H Blood Pressure Mean 103 120 Pulse Ox 97 97 Oxygen Delivery Method 01/12/25 12:15 01/12/25 12:30 01/12/25 12:45 Temperature Temperature Source Pulse Rate 87 88 Respiratory Rate 19 H 16 Respiratory Effort Blood Pressure 163/90 H 163/86 H 156/83 H Blood Pressure Mean 106 106 102 Pulse Ox 100 100 Oxygen Delivery Method 01/12/25 13:00 01/12/25 13:15 01/12/25 13:30 Temperature Temperature Source Pulse Rate 89 87 86 Respiratory Rate 11 L 10 L 12 Respiratory Effort Blood Pressure 167/85 H 161/89 H 166/86 H Blood Pressure Mean 107 108 109 Pulse Ox 99 96 99 Oxygen Delivery Method 01/12/25 13:45 01/12/25 14:00 01/12/25 14:45 Temperature Temperature Source Pulse Rate 88 91 95 Respiratory Rate 15 18 31 H Respiratory Effort Blood Pressure 168/81 H 174/86 H 157/109 H Blood Pressure Mean 109 111 120 Pulse Ox 100 97 Oxygen Delivery Method 01/12/25 15:00 01/12/25 15:55 01/12/25 16:00 Temperature 97.9 F Temperature Source Pulse Rate 94 89 91 Respiratory Rate 13 22 H 11 L Respiratory Effort Blood Pressure 176/87 H 161/79 H 157/84 H Blood Pressure Mean 112 106 104 Pulse Ox 98 99 99 Oxygen Delivery Method Positive well nourished and well developed General Appearance ED: well developed and NAD HEENT Reports dry mucous membranes normocephalic and atraumatic Mouth ED: Yes dry mucous membranes Mouth: dry mucous membranes Eyes PERRL Neck supple and no JVD Chest Wall inspection of chest normal Chest Narrative: left anterior superior chest wall tenderness Resp normal respiratory effort and clear to auscultation bilaterally Cardio regular rate, regular rhythm and no murmurs GI GI Narrative: 2+ radial DP pulses Extremity normal to inspection Extremity Narrative: No obvious deformity. Pain with palpation of the left trapezius as well as the left shoulder relatively diffusely. No short arc range of motion pain in the shoulder. No effusion present. No deformity of the shoulder. 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 General Extremety ED: Negative for edema General Extremity: Negative for edema Neuro oriented x3 Sensorium / Orientation: awake and alert Motor Exam: general weakness Psych mental status grossly normal Skin no rashes or lesions noted and no wounds Heart Score History: Slightly/Non-Suspicious ECG: Nonspecific Repolarization Age: >/= 65 years Risk Factors: >/= 3 Risk Factors or History of CAD Troponin: >1 - <3 Normal Limit Score: 6 MDM MDM MDM Narrative Medical decision making narrative: Patient evaluated for left-sided chest pain that radiates to her shoulder and neck. This pain is all seems to be more muscle skeletal and highly reproducible with movements of the neck, palpation of the trapezius and shoulder movement. She does not have any short arc range of motion pain of the shoulder concerning for septic arthritis. Lab work is obtained looking for cause of her pain including structural abnormalities, ACS, pleural effusion, pneumothorax, pneumonia. She does have a leukocytosis of 14.3 of uncertain clinical significance. No obvious or so infection on her workup. High sensitive troponin is elevated at 32 which is above her baseline however it is stable in the emergency room on repeat it is 33 and 31 respectively. Her proBNP is elevated at 2237 which is significantly elevated from earlier this year when she was in the 300s. She is significantly hypokalemic with potassium of 2.3. Magnesium is added on which is normal. Remainder of her labs largely normal. Chest x-ray, shoulder x-ray and neck x-ray reviewed by myself do not show any acute pathology explain her presentation. She does have some bilateral pulmonary vascular congestion. She does not have any increased O2 demands and clinically does not appear fluid overloaded with peripheral edema, crackles or JVD. She is given oral and IV potassium replacement in the emergency room. Due to patient's elevated heart score, hypertension (is given a dose of labetalol in the emergency room), leukocytosis, hypokalemia and underlying cardiac risk factors will be admitted for further cardiac monitoring and evaluation. Case discussed with hospitalist, Dr. Santos for admission. Lab Data Attestation: I reviewed the patient's lab results. Labs: Laboratory Results - last 24 hr 01/12/25 01/12/25 01/12/25 10:28 12:56 15:20 WBC 14.3 H RBC 4.86 Hgb 14.3 Hct 41.8 MCV 86.0 MCH 29.4 MCHC 34.2 RDW Std Deviation 41.5 RDW Coeff of [place] 13.2 Plt Count 212 MPV 10.1 Immature Gran % (Auto) 0.600 Neut % (Auto) 84.2 H Lymph % (Auto) 6.5 L [place] % (Auto) 7.7 Eos % (Auto) 0.6 Baso % (Auto) 0.4 Absolute Neuts (auto) 12.0 H Absolute Lymphs (auto) 0.93 Nucleated RBC % 0 Sodium 138 Potassium 2.3 L* Chloride 97 L Carbon Dioxide 27.1 Anion Gap 14 BUN 10 Creatinine 0.59 L Estim Creat Clear Calc 59.69 Est GFR (MDRD) Non-Af 97 BUN/Creatinine Ratio 16.7 Glucose 186 H Calcium 10.6 Magnesium 1.6 Troponin T High Sens 32 H D Troponin T Hi Sens 2 Hr 33 H Troponin T Hi Sens 4Hr 31 H NT pro BNP II 2237 H Radiography Chest X-Ray - ED: 2 View, Read by ED Physician, Read by Radiologist and CHF Diagnostic Testing: Clinical Impression(s) from Imaging Studies Cervical Spine X-Ray 01/12/25 11:40 IMPRESSION: Hardware in position, with no significant interval change. Reading Location: [facility] Chest X-Ray 01/12/25 11:40 IMPRESSION: Bilateral pulmonary vascular congestion. Reading Location: [id number] Shoulder X-Ray 01/12/25 11:40 IMPRESSION: NO ACUTE FRACTURE OR DISLOCATION. Reading Location: [place] [id number] Rhythm Strip Rhythm Strip: Sinus Rhythm Rate: 92 Ectopy: None EKG Initial EKG: Attestation: I personally reviewed and interpreted this EKG as follows: Comments: Sinus rhythm at a rate of 92 beats per minutes with shortened PA interval of 84 Minimal voltage criteria for LVH Nonspecific T wave changes however difficult to interpret due to motion artifact Prior EKG tracings: available for review Follow-up EKG: Attestation: I personally reviewed and interpreted this EKG as follows: Interpretation: Sinus Rhythm Comments: Normal sinus rhythm at a rate of 95 bpm Left axis deviation Normal intervals Nonspecific ST segment changes most pronounced in the precordial leads, no significant change compared to prior EKG Differential Diagnosis Chest pain/SOB: pulmonary embolism Reason(s) PE less likely: Positive for not tachycardic, not hypoxic and patient taking oral anticoagulants Management Discussion w/another healthcare provider: Hospitalist Discharge Plan Dx/Rx/DC Orders Clinical Impression: Ischemic cardiomyopathy, Acute hypokalemia, Chest pain, Shoulder pain Disposition Disposition: Acute Care Hospital [facility]
--- NOTE | 2025-01-12 15:32 | EKG12_ITS ---
Test Reason : REPEAT Blood Pressure : */* mmHG Vent. Rate : 95 BPM Atrial Rate : 95 BPM P-R Int : 112 ms QRS Dur : 104 ms QT Int : 406 ms P-R-T Axes : -11 -56 -62 degrees QTcB Int : 510 ms Normal sinus rhythm Left axis deviation Possible Lateral infarct , age undetermined Inferior infarct , age undetermined ST & T wave abnormality, consider anterior ischemia Abnormal ECG Confirmed by DORYS LEMUS MD ([id number]), book or script editor ARABELLA CHRISTIANSON ([id number]) on 01/13/2025 10:46:32 AM Referred By: Confirmed By: DORYS LEMUS MD
[2025-01-12 15:49] LABS: Troponin T High Sens 4 HR 31 ng/L (<=14)
[2025-01-12] MEDS: HYDROcodone Bitartrate/Apap 5/325 Tablet PO (15:54)
--- NOTE | 2025-01-12 16:14 | PCM.HP.STD ---
[facility] - General General Date of Admission: 01/12/25 Date of Service: 01/12/25 Chief Complaint: Left upper chest and shoulder pain, poor p.o. intake [facility] Narrative ELO HERNANDEZ, is a 69-year-old female with history of diabetes, GERD, hx hf w/ recovered EF, fatigue, restless leg syndrome, depression, A-fib, hypertension, coronary artery disease presented [facility] ED 01/12/2025 for chest pain for the past 3 days. In the ED patient afebrile, heart rate 94, blood pressure 175/92, respiratory rate 14 and pulse ox 98% on room air. White blood cell count 14.3 hemoglobin 14.3. BMP showed potassium of 2.3, normal kidney function, glucose of 186. Noted to have a troponin of 32 with a repeat of 33. Magnesium 1.6. Chest x-ray with bilateral pulmonary vascular congestion. cervical spine x-ray and shoulder x-ray no acute process. Symptoms seemed most consistent with musculoskeletal pain as pain was reproducible and initially had been improving with lidocaine patches and supportive care however patient has elevated heart score and has elevated BNP, that in combination with unclear reason for increased white blood cell count and patient's potassium of 2.3 ED physician contacted hospitalist for admission. Patient evaluated at bedside, reports that she has had some pain in the left side of her chest and left shoulder for 3 days, initially was responding to ice and topical measures but today it seemed worse prompting her to come to the ED to verify there was no underlying cardiac etiology. Patient denies cough or shortness of breath, does note that the pain is reproducible and is worsened with movement, did not respond to nitro, is stabbing in nature. Patient reports she drinks enough water but has had poor p.o. intake as she has felt anxious and depressed so has not been eating well, denies any abdominal pain, nausea or vomiting, no changes in bowel or bladder, no swelling in extremities. [facility] Medical History Post-tubal ligation syndrome Hx MRSA infection Alcohol use Restless legs Wears glasses Complete edentulism, class III Diabetes Walker as ambulation aid Bladder disease Low iron High cholesterol Dietary restriction History of hiatal hernia Gastric reflux Smoker Chronic bronchitis History of Holter monitoring History of echocardiogram History of stress test Cardiology follow-up encounter History of CHF (congestive heart failure) Chest pain PTSD (post-traumatic stress disorder) Vitamin deficiency Fatigue Headache Closed injury of head Insomnia Osteoporosis Chronic neck pain with history of cervical spinal surgery Chronic anticoagulation Mural thrombus of heart Hiatal hernia Chronic back pain History of peptic ulcer disease 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) Essential (primary) hypertension History of ST elevation myocardial infarction (STEMI) Major depression Multiple sclerosis Cervical spinal stenosis IBS (irritable bowel syndrome) RLS (restless legs syndrome) Takotsubo syndrome Atherosclerotic heart disease of [place] coronary artery without angina pectoris Typical atrial flutter Paroxysmal atrial fibrillation Left ventricular hypertrophy Chronic systolic (congestive) heart failure Ischemic cardiomyopathy Apical mural thrombus with acute IN Vitamin B12 deficiency Irritable bowel syndrome with diarrhea Home Medications ?Medication ?Instructions ?Recorded ?Last Taken ?Type modafinil 200 mg tablet 200 mg PO DAILY FATIGUE 12/12/19 09/06/24 History acetaminophen 500 mg tablet 1,000 mg (2 x 500 mg) PO TID PRN 07/29/20 07/18/24 Rx pain -02/03 #1 TAB cholecalciferol (vitamin D3) 125 125 mcg PO DAILY supplement 11/05/21 09/06/24 History mcg (5,000 unit) capsule ferrous sulfate 325 mg (65 mg 325 mg PO DAILY supplement 11/05/21 09/06/24 History iron) tablet aspirin 81 mg tablet,delayed 81 mg PO DAILY heart health 04/01/22 10/09/24 History release (Adult Aspirin Regimen) ascorbic acid (vitamin C) 500 mg 500 mg PO DAILY supplement 06/06/22 09/06/24 History chewable tablet atorvastatin 40 mg tablet 40 mg PO QHS cholesterol 06/06/22 09/05/24 History denosumab 60 mg/mL subcutaneous 60 mg subcut [id number] bone health 06/06/22 07/21/24 History syringe (Prolia) albuterol sulfate 2.5 mg/3 mL 2.5 mg (3 mL) inhalation Q8H PRN 07/21/22 Unknown Rx (0.083 %) solution for nebulization Dyspnea, wheezing #180 mL blood sugar diagnostic (Accu-Chek #100 ea 07/29/22 Unknown Rx Ada Plus test strips) pantoprazole 40 mg tablet,delayed 40 mg PO DAILY gerd #90 tabs 09/04/22 11/29/24 Rx release donepezil 10 mg tablet 20 mg PO DAILY 09/11/22 09/06/24 History insulin lispro 100 unit/mL 1 sliding scale dose subcut QAC 09/11/22 09/06/24 History subcutaneous pen hydrocortisone 2.5 % topical cream 1 applic topical BID PRN skin 09/12/22 Unknown Rx irritation #454 grams albuterol sulfate 90 mcg/actuation 2 puff inhalation Q6H PRN 10/29/22 07/18/24 Rx aerosol inhaler shortness of breath or wheezing #8.5 grams vibegron 75 mg tablet (Gemtesa) 75 mg PO DAILY 01/30/23 09/06/24 History lidocaine 5 % topical patch 1 patch topical DAILY 06/22/23 09/06/24 History (Lidoderm) ropinirole 2 mg tablet 2 mg PO QHS restless leg 03/01/24 09/05/24 History sucralfate 1 gram tablet 1 g PO 4X/DAY reflux 03/01/24 09/06/24 History ropinirole 1 mg tablet 1 mg PO 1200 05/03/24 10/11/24 History fluorometholone 0.1 % eye 1 drp ophthalmic (eye) BID 07/10/24 09/06/24 History drops,suspension nystatin 100,000 unit/gram topical 1 applic topical BID PRN SKIN 07/18/24 09/06/24 History powder (Nystop) tizanidine 2 mg tablet 2 mg PO DAILY PRN pain 07/18/24 09/06/24 History hydroxyzine HCl 50 mg tablet 50 mg PO BID PRN anxiety #60 tabs 08/01/24 Unknown Rx apixaban 5 mg tablet (Eliquis) 5 mg PO BID #180 tabs 08/31/24 11/25/24 Rx ondansetron HCl 4 mg tablet 4 mg PO Q8H PRN nausea and 09/26/24 Unknown Rx vomiting #30 tabs carvedilol 6.25 mg tablet 6.25 mg PO BID #180 tabs 09/29/24 11/29/24 08:30 Rx dicyclomine 20 mg tablet 20 mg PO BID PRN IBS 09/29/24 Unknown History isosorbide mononitrate 30 mg 30 mg PO BID heart #180 tabs 09/29/24 11/29/24 Rx tablet,extended release 24 hr nitroglycerin 0.4 mg sublingual 0.4 mg sublingual Q5-15M #25 tabs 09/29/24 Unknown Rx tablet oxycodone-acetaminophen 5 mg-325 0.5 - 1 tab PO QDAY PRN pain 09/29/24 Unknown History mg tablet quetiapine 100 mg tablet 100 mg PO QHS #90 tabs 10/03/24 Unknown Rx ramelteon 8 mg tablet 8 mg PO QHS PRN sleep #90 tabs 10/03/24 Unknown Rx tirzepatide 15 mg/0.5 mL 15 mg subcut QWEEK 12/20/24 Unknown History subcutaneous pen injector (Mounjaro) losartan 50 mg tablet 50 mg PO BID Dose increased after 12/21/24 Unknown Rx ER visit last night #180 tabs duloxetine 30 mg capsule,delayed 30 mg PO BID mental health #180 01/10/25 Unknown Rx release caps gabapentin 300 mg capsule 300 mg PO QDAY 01/10/25 Unknown History baclofen 10 mg tablet 10 mg PO TID 01/12/25 Unknown History Allergy/AdvReac Type Severity Reaction Status Date / Time vancomycin Allergy Severe Anaphylaxis Verified 01/12/25 09:50 indomethacin (From Indocin) Allergy Hives Verified 01/12/25 09:50 indomethacin sodium (From Allergy Hives Verified 01/12/25 09:50 Indocin) iodine Allergy Hives Verified 01/12/25 09:50 propoxyphene napsylate (From Allergy Out of Verified 01/12/25 09:50 Darvocet-N) control trazodone AdvReac Intermediate Other Verified 01/12/25 09:50 aripiprazole (From Abilify) AdvReac Other Verified 01/12/25 09:50 aspirin AdvReac Upset Verified 01/12/25 09:50 Stomach clindamycin AdvReac Nausea Verified 01/12/25 09:50 metformin AdvReac Other Verified 01/12/25 09:50 sumatriptan (From Imitrex) AdvReac Vomiting Verified 01/12/25 09:50 Family History Father Cancer Lung cancer Mother Cancer Pancreatic cancer Surgical History History of carpal tunnel surgery Hx of lumbosacral spine surgery Hx of bilateral cataract extraction (~03/2022) History of left heart catheterization (09/25/20) History of loop recorder (06/2014) History of amputation of left great toe History of left knee surgery History of tonsillectomy and adenoidectomy History of back surgery History of cervical discectomy History of coronary artery stent placement (04/08/16) Social History household members: none housing: house Smoking Status: Current every day smoker tobacco type: cigarettes alcohol intake: never substance use type: does not use caffeine: Yes Type: coffee Number of servings: 1 what type of physical activity do you participate in: none and other details: Physical Therapy ROS ROS Narrative General: Denies fever/chills HENT: Denies headache, denies stuffy nose, denies sore throat EYES: Denies changes in vision Resp: Denies cough, denies shortness of breath Cardiac: Pain on left side of chest and shoulder that is sharp and worsened with palpation GI: Denies abdominal pain, denies changes in bowel, denies nausea/vomiting : Denies changes in urination Extremity: Denies swelling MSK: Denies weakness Neuro: Denies any numbness/tingling Heme: Denies any bleeding or bruising Skin: Denies rashes Psychiatric: No complaints voiced Vital Signs Vital Signs Vital Signs: 01/12/25 09:49 01/12/25 10:25 01/12/25 10:50 Temperature 98 F Temperature Source Temporal Pulse Rate 94 89 Respiratory Rate 14 26 H Respiratory Effort Normal Non-Labored Blood Pressure 175/92 H Blood Pressure Mean 119 Pulse Ox 98 94 Oxygen Delivery Method Room Air 01/12/25 11:00 01/12/25 11:13 01/12/25 11:15 Temperature Temperature Source Pulse Rate 89 98 87 Respiratory Rate 23 H 19 H 18 Respiratory Effort Blood Pressure 185/89 H 188/94 H 193/93 H Blood Pressure Mean 116 120 121 Pulse Ox 96 98 95 Oxygen Delivery Method 01/12/25 11:23 01/12/25 11:30 01/12/25 11:37 Temperature Temperature Source Pulse Rate Respiratory Rate Respiratory Effort Blood Pressure 183/88 H Blood Pressure Mean 115 Pulse Ox 98 Oxygen Delivery Method Room Air 01/12/25 11:45 01/12/25 11:48 01/12/25 12:00 Temperature Temperature Source Pulse Rate 91 Respiratory Rate 13 Respiratory Effort Blood Pressure 132/89 H 189/93 H Blood Pressure Mean 103 120 Pulse Ox 97 97 Oxygen Delivery Method 01/12/25 12:15 01/12/25 12:30 01/12/25 12:45 Temperature Temperature Source Pulse Rate 87 88 Respiratory Rate 19 H 16 Respiratory Effort Blood Pressure 163/90 H 163/86 H 156/83 H Blood Pressure Mean 106 106 102 Pulse Ox 100 100 Oxygen Delivery Method 01/12/25 13:00 01/12/25 13:15 01/12/25 13:30 Temperature Temperature Source Pulse Rate 89 87 86 Respiratory Rate 11 L 10 L 12 Respiratory Effort Blood Pressure 167/85 H 161/89 H 166/86 H Blood Pressure Mean 107 108 109 Pulse Ox 99 96 99 Oxygen Delivery Method 01/12/25 13:45 01/12/25 14:00 01/12/25 14:45 Temperature Temperature Source Pulse Rate 88 91 95 Respiratory Rate 15 18 31 H Respiratory Effort Blood Pressure 168/81 H 174/86 H 157/109 H Blood Pressure Mean 109 111 120 Pulse Ox 100 97 Oxygen Delivery Method 01/12/25 15:00 01/12/25 15:55 01/12/25 16:00 Temperature 97.9 F Temperature Source Pulse Rate 94 89 91 Respiratory Rate 13 22 H 11 L Respiratory Effort Blood Pressure 176/87 H 161/79 H 157/84 H Blood Pressure Mean 112 106 104 Pulse Ox 98 99 99 Oxygen Delivery Method Weight Weight: 69.3 kg Body Mass Index (BMI) 27.9 Physical Exam Narrative General: Alert, oriented, no apparent distress HEENT: normocephalic Eyes: Anicteric, normal conjunctiva, extraocular movements grossly intact Neck: Supple Respiratory: Clear to auscultation bilaterally, no overt wheezes, rhonchi, crackles, normal respiratory effort Cardiovascular: Regular rate and rhythm GI: Soft, nontender, nondistended Extremities: No edema Musculoskeletal: Moving all extremities Neuro: No overt focal neurological deficits Skin: No rashes appreciated Psych: Cooperative Results Lab / Micro Data 01/12/25 10:28 01/12/25 10:28 Labs: Laboratory Results - last 24 hr 01/12/25 10:28: WBC 14.3 H, RBC 4.86, Hgb 14.3, Hct 41.8, MCV 86.0, MCH 29.4, MCHC 34.2, RDW Std Deviation 41.5, RDW Coeff of [place] 13.2, Plt Count 212, MPV 10.1, Immature Gran % (Auto) 0.600, Neut % (Auto) 84.2 H, Lymph % (Auto) 6.5 L, [place] % (Auto) 7.7, Eos % (Auto) 0.6, Baso % (Auto) 0.4, Absolute Neuts (auto) 12.0 H, Absolute Lymphs (auto) 0.93, Nucleated RBC % 0, Sodium 138, Potassium 2.3 L*, Chloride 97 L, Carbon Dioxide 27.1, Anion Gap 14, BUN 10, Creatinine 0.59 L, Estim Creat Clear Calc 59.69, Est GFR (MDRD) Non-Af 97, BUN/Creatinine Ratio 16.7, Glucose 186 H, Calcium 10.6, Magnesium 1.6, Troponin T High Sens 32 H D, NT pro BNP II 2237 H 01/12/25 12:56: Troponin T Hi Sens 2 Hr 33 H 01/12/25 15:20: Troponin T Hi Sens 4Hr 31 H Imaging Radiology Impression Cervical Spine X-Ray 01/12/25 11:40 IMPRESSION: Hardware in position, with no significant interval change. Reading Location: [facility] Chest X-Ray 01/12/25 11:40 IMPRESSION: Bilateral pulmonary vascular congestion. Reading Location: [id number] Shoulder X-Ray 01/12/25 11:40 IMPRESSION: NO ACUTE FRACTURE OR DISLOCATION. Reading Location: [facility] Assessment & Plan Assessment/Plan (1) Elevated brain natriuretic peptide (BNP) level: (2) Shoulder pain: PLAN: Plan # Elevated BNP -Patient's chest x-ray with bilateral pulmonary vascular congestion and proBNP 2200 up from 347 earlier this year -Presently denying shortness of breath or leg swelling and clinically actually appears dry -Unclear etiology, has history of heart failure but most recently had recovered EF the last echo was in 2021 -Will obtain echocardiogram -Daily weights, I's and O's -Given patient is vitally stable will hold off on empiric IV Lasix while undergoing workup -Patient being admitted to telemetry # Shoulder pain -Pain is in the left upper chest and shoulder and is reproducible on palpation, worse with movement and has been improved with topical/supportive care -Highly suspicious for musculoskeletal pain and not cardiac pain -Troponins flat -EKG overall nonspecific -X-ray with no acute process left shoulder -PT/OT -Arthritis pain compound topical -Scheduled Tylenol -Low-dose as needed oxycodone -Continue home baclofen #Hypokalemia -Replace - Will repeat after replacement -Magnesium also 1.6 which is on the lower limit of normal so we will give magnesium replacement #Hypertension - Continue home antihypertensives, may need to adjust pending blood pressure, presently 157/84 in the ED # Restless leg syndrome -continue patient's home medication regimen #Hx of CAD -w/ previous stenting to LAD and angioplasty of second diagonal March 2016 following a STEMI -Continue home medications -Heart healthy diet #GERD -Continue PPI #Type 2 diabetes mellitus -Glucose checks and sliding scale insulin #Chronic heart failure with recovered ejection fraction -Daily weights -I's and O's - After patient's STEMI in 2015 she had an EF of 25-30 percent, stress echo done in August 2019 showed improved EF to 55% -Continue patients home medications - Repeat echo as above # Restless leg syndrome -continue patient's home medication regimen #Depression/anxiety -Continue home medications -Reports more depressed and anxious recently causing poor p.o. however saw her psychiatrist Dr. Sultana yesterday and her Seroquel was decreased, reports feeling better today #Paroxysmal Atrial Fibrillation -Rate control: Carvedilol -Anticoagulation: Eliquis #DVT ppx: Patient already on full dose anticoagulation Florence Santos MD Charges/Coding Visit Charges Inpatient E&M: 66224 Init Hosp L2
--- NOTE | 2025-01-12 17:09 | ECHOD_ITS ---
Reason For Study Reason For Study: ELEVATED BNP Procedure This was a 2D Doppler, Color Flow transthoracic echocardiogram. Exam performed portable in patient room. Left Ventricle Normal LV size. Mild concentric left ventricular hypertrophy. The left ventricular ejection fraction is 45 %. Moderate segmental systolic dysfunction (see wall motion). Benoit : Akinetic. Lateral [place] : Severely Hypokinetic. Septal [place] : Severely Hypokinetic. Anterior [place] : Hypokinetic. The rest of the wall segments are normal. Right Ventricle Normal RV size. Normal systolic function. Atria The left atrium is mildly enlarged. Normal right atrium. Mitral Valve Normal mitral valve. Tricuspid Valve Normal tricuspid valve. Aortic Valve Trisinus/trileaflet aortic valve. Pulmonic Valve Normal pulmonic valve. Great Vessels Normal aortic root. The pulmonary artery is normal size. Inferior vena cava collapse with respiration. Pericardium/Pleural No pericardial effusion. MMode/2D Measurements & Calculations LVIDd: 4.9 cm IVSd: 1.3 cm Ao root diam: 3.8 cm LVIDs: 3.8 cm LVPWd: 1.2 cm RVDd: 3.2 cm FS: 22.3 % asc Aorta Diam: 4.4 cm LAV(MOD-bp): 80.4 ml LVAd ap4: 29.9 cm2 LAV(MOD-bp) Indexed: 47.1 ml/m2 LVLd ap4: 8.3 cm LAV(MOD-sp2): 79.9 ml EDV(MOD-sp4): 87.6 ml LAV(MOD-sp4): 74.1 ml EDV(sp4-el): 91.5 ml LVAs ap4: 20.6 cm2 LVLs ap4: 7.5 cm ESV(MOD-sp4): 47.0 ml ESV(sp4-el): 48.0 ml EF(MOD-sp4): 46.3 % EF(sp4-el): 47.6 % LVAd ap2: 29.3 cm2 SV(MOD-sp4): 40.6 ml SV(MOD-sp2): 42.5 ml LVLd ap2: 8.1 cm SI(MOD-sp4): 23.8 ml/m2 SI(MOD-sp2): 24.9 ml/m2 EDV(MOD-sp2): 86.6 ml EDV(sp2-el): 89.8 ml LVAs ap2: 20.5 cm2 LVLs ap2: 7.7 cm ESV(MOD-sp2): 44.1 ml ESV(sp2-el): 46.3 ml EF(MOD-sp2): 49.0 % SV(sp4-el): 43.5 ml LA dimension(2D): 5.5 cm LA A4 area: 23.4 cm2 TAPSE: 1.7 cm Doppler Measurements & Calculations MV E max arturo: 91.5 cm/sec Lat Peak E' Arturo: 8.2 cm/sec Med Peak E' Arturo: 4.3 cm/sec E/E' lat: 11.2 E/E' med: 21.5 Ao V2 max: 113.4 cm/sec LV V1 max: 99.5 cm/sec PA V2 max: 79.2 cm/sec Ao max P.1 mmHg LV V1 max P.0 mmHg Ao V2 mean: 74.0 cm/sec LV V1 mean P.8 mmHg Ao mean P.5 mmHg LV V1 mean: 63.5 cm/sec Ao V2 VTI: 19.7 cm LV V1 VTI: 18.2 cm AV (velocity ratio): 0.93 ECHO/Echo Complete Interpretation Summary Normal LV size. The left ventricular ejection fraction is 45 %. Moderate segmental systolic dysfunction (see wall motion). Mild concentric left ventricular hypertrophy. Ordering Physician: Florence Santos Referring Physician: Carlton Rocha Performed By: yJoti Gomez, MIKE, RVT
--- NOTE | 2025-01-12 17:09 | CASEMGMT ---
Care Management Face to Face with patient for initial transition planning/care coordination assessment in the ED. This jingle writer introduced self and role at [facility]. Patient alert and oriented. Patient willing to participate in assessment and is able to answer all questions appropriately. Care providers, pharmacy, and demographics verified. Admitting Diagnosis: Elevated brain natriuretic peptide (BNP) level, Shoulder pain Other diagnosis history: GERD, restless leg syndrome, depression, A-fib, hypertension, coronary artery disease PCP: Carlton Rocha/[facility] Specialists: Kayla, podiatry. Rd, psychiatry. Fatuma Antoine, cardiology. Carlos, neurology. Mark, endocrinology. Kellee Zapata, pain management. emr specialist. Back surgeon. Preferred Pharmacy: [facility] Insurance: [facility] Medicare Dual (primary). [facility] Community Plan (secondary). Prescription Benefit: yes Living Will/HPOA: sonLazaro and sisterRobina. Of note, son is currently in alf. LNOK: sister Robina. Son Lazaro. Daughter Gabby. Living Arrangements: lives alone in a 1 story home with a lift. Has an aide through [employer] to help with all ADLs/IADLs. Transportation: patient does not drive and uses friends or [employer] DME: rollator, wheelchair, walk in shower with a seat, hospital bed, lift chair HHC: [facility] currently (for ST, PT, OT, and RN). Clothes Shaker in past. SNF/Rehab: [facility] [place], [facility], [facility] Community Resources: [facility], [employer] , [place], [employer], [facility] peanut cleaner Patient goals: Patient wishes to discharge home, denies need for home health care at this time. Patient denies any further needs or concerns at this time. Disposition Plan: admission to acute; RN CM/SW to follow for discharge planning needs that may arise. Maribeth Staples, STEREO EQUIPMENT REPAIRER, MAINTENANCE PLANNER
[2025-01-12 18:06] LABS: Anion Gap 14 (5-15); BUN 9 mg/dL (4-19); BUN/Creat Ratio 15.2 RATIO (10-20); Calcium,Total 9.8 mg/dL (7.6-11.0); Carbon Dioxide 23.5 mmol/L (21.0-32.0); Chloride 100 mmol/L (98-108); Estimated Creatinine Clearance 58.51 ml/min (50-250); Glucose 141 mg/dL (70-99); Potassium 3.0 mmol/L (3.3-5.1)
[2025-01-12] MEDS: 0.9% Normal Saline (250mL Bag) 250 ML 15 ML IV (18:13)
[2025-01-12] MEDS: Magnesium Sulfate 4gm/100mL 4 GM/100 ML IV.SOLN. IV (18:13)
[2025-01-12] MEDS: 0.9% Saline Lock 10 ML Syringe IV (18:13)
[2025-01-12 18:19] LABS: Mucous, Urine 0 SEEN /hpf (<or=2+)
[2025-01-12 18:24] LABS: Color, Urine Yellow (Yellow); Glucose, Dipstick Normal (Normal); Ketone-Dipstick 5 mg/dl (Negative); Leukocyte Esterase-Dipstick Negative /ul (Negative); Nitrite-Dipstick Negative (Negative); Occult Blood-Urine Negative /ul (Negative); Protein-Dipstick 15 mg/dl (Negative); Specific Gravity, Urine 1.010 (1.002-1.030); Urine Bilirubin Dipstick Negative (Negative)
[2025-01-12 18:53] LABS: Red Blood Cells-Urine 0-5 SEEN /hpf (0-5)
[2025-01-12 18:54] LABS: Squamous Epithelial Cells - UA 5-10 SEEN /hpf (5-10)
[2025-01-12 18:55] LABS: Yeast-Urine 2+ /hpf (None Seen)
[2025-01-12] MEDS: APIXABAN 5 MG TABLET PO (22:42)
[2025-01-12] MEDS: Arthritis Pain Compound 60 CLICK TUBE TOPICAL (22:44)
[2025-01-13] VITALS (8 sets, daily range): BP systolic 144–187; BP diastolic 71–96; PULSE 78–93; RESP 16–18; TEMP 36.6–37.1; O2SAT 93–99; BMI 26.8
[2025-01-13 05:58] LABS: Hematocrit 35.5 % (37-47); Hemoglobin 11.9 g/dL (12.0-15.0); Immature Granulocytes Count 0.020 X10^3/uL (0.0-0.0); Mean Corp Hgb Conc 33.5 g/dL (32-36); Mean Corpuscular Volume 86.0 fL (81-99); Mean Platelet Vol. 9.6 fl (6.2-12.0); NRBC Flagged by Analyzer 0 % (0-5); Platelet Count 145 K/mm3 (150-450); RBC Distribution Width CV 13.2 % (11.6-14.6); RBC Distribution Width SD 40.9 fl (35.1-43.9); Red Blood Count 4.13 M/mm3 (4.2-5.4); White Blood Count 7.7 K/mm3 (4.4-11.0)
[2025-01-13 06:35] LABS: Magnesium 2.0 mg/dL (1.5-2.2)
[2025-01-13 06:37] LABS: Anion Gap 11 (5-15); BUN 9 mg/dL (4-19); BUN/Creat Ratio 17.8 RATIO (10-20); Calcium,Total 10.0 mg/dL (7.6-11.0); Carbon Dioxide 24.0 mmol/L (21.0-32.0); Chloride 101 mmol/L (98-108); Estimated Creatinine Clearance 58.53 ml/min (50-250); Glucose 159 mg/dL (70-99); Potassium 2.3 mmol/L (3.3-5.1)
--- NOTE | 2025-01-13 06:38 | PCM.HOSP.N ---
Hospitalist Note Potassium 2.3, supplementation ordered, repeat level this afternoon.
[2025-01-13] MEDS: Potassium Chloride 10mEq/100mL 10 MEQ/100 ML IV.SOLN. 100 MEQ IV BOLUS ×2 (06:53→08:35)
[2025-01-13] MEDS: Potassium Chloride Oral Tablet 20 MEQ 40 MEQ PO ×3 (06:53→16:33)
--- NOTE | 2025-01-13 07:56 | PCM.PN.HOSP ---
Reason for Visit Chief Complaint: Left upper chest and shoulder pain, poor p.o. intake Objective Data Objective Data Vital Signs: Vital Signs Temp Pulse Resp BP Pulse Ox O2 Del Method 98.8 F 83 16 152/71 H 93 Room Air 01/13/25 06:29 01/13/25 06:29 01/13/25 06:29 01/13/25 06:29 01/13/25 06:29 01/13/25 06:29 Oxygen Delivery Method Room Air Weight: 146 lb 9.718 oz Body Mass Index (BMI) 26.8 Intake & Output: Intake and Output for Last 24 Hours 01/11/25 01/12/25 01/13/25 23:59 23:59 23:59 Intake Total 1200.25 / 1200.25 Balance 1200.25 / 1200.25 Lab / Micro Data 01/13/25 05:39 01/13/25 05:39 Labs: Laboratory Results - last 24 hr 01/12/25 10:28: WBC 14.3 H, RBC 4.86, Hgb 14.3, Hct 41.8, MCV 86.0, MCH 29.4, MCHC 34.2, RDW Std Deviation 41.5, RDW Coeff of Yeimi 13.2, Plt Count 212, MPV 10.1, Immature Gran % (Auto) 0.600, Neut % (Auto) 84.2 H, Lymph % (Auto) 6.5 L, [place] % (Auto) 7.7, Eos % (Auto) 0.6, Baso % (Auto) 0.4, Absolute Neuts (auto) 12.0 H, Absolute Lymphs (auto) 0.93, Nucleated RBC % 0, Sodium 138, Potassium 2.3 L*, Chloride 97 L, Carbon Dioxide 27.1, Anion Gap 14, BUN 10, Creatinine 0.59 L, Estim Creat Clear Calc 59.69, Est GFR (MDRD) Non-Af 97, BUN/Creatinine Ratio 16.7, Glucose 186 H, Calcium 10.6, Magnesium 1.6, Troponin T High Sens 32 H D, NT pro BNP II 2237 H 01/12/25 12:56: Troponin T Hi Sens 2 Hr 33 H 01/12/25 15:20: Sodium 138, Potassium 3.0 L, Chloride 100, Carbon Dioxide 23.5, Anion Gap 14, BUN 9, Creatinine 0.57 L, Estim Creat Clear Calc 58.51, Est GFR (MDRD) Non-Af 98, BUN/Creatinine Ratio 15.2, Glucose 141 H, Calcium 9.8, Troponin T Hi Sens 4Hr 31 H 01/12/25 18:14: Urine Color Yellow, Urine Clarity Clear, Urine pH 7.0, Ur Specific Bowman 1.010, Urine Protein 15 H, Urine Glucose (UA) Normal, Urine Ketones 5 H, Urine Occult Blood Negative, Urine Nitrite Negative, Urine Bilirubin Negative, Urine Urobilinogen Normal, Ur Leukocyte Esterase Negative, Urine RBC 0-5 SEEN, Urine WBC 0-5 SEEN, Ur Squamous Epith Cells 5-10 SEEN, Urine Bacteria RARE, Urine Mucus 0 SEEN, Urine Yeast 2+ 01/12/25 22:29: POC Glucose 181 H 01/13/25 05:39: WBC 7.7, RBC 4.13 L, Hgb 11.9 L, Hct 35.5 L, MCV 86.0, MCH 28.8, MCHC 33.5, RDW Std Deviation 40.9, RDW Coeff of Yeimi 13.2, Plt Count 145 L, MPV 9.6, Immature Gran % (Auto) 0.300, Neut % (Auto) 61.7, Lymph % (Auto) 21.3, [place] % (Auto) 11.7 H, Eos % (Auto) 4.5, Baso % (Auto) 0.5, Absolute Neuts (auto) 4.8, Absolute Lymphs (auto) 1.64, Nucleated RBC % 0, Sodium 136, Potassium 2.3 L*, Chloride 101, Carbon Dioxide 24.0, Anion Gap 11, BUN 9, Creatinine 0.52 L, Estim Creat Clear Calc 58.53, Est GFR (MDRD) Non-Af 100, BUN/Creatinine Ratio 17.8, Glucose 159 H, Calcium 10.0, Magnesium 2.0 01/13/25 06:33: POC Glucose 157 H Radiography Diagnostic Testing: Radiology Impression Cervical Spine X-Ray 01/12/25 11:40 IMPRESSION: Hardware in position, with no significant interval change. Reading [facility] Chest X-Ray 01/12/25 11:40 IMPRESSION: Bilateral pulmonary vascular congestion. Reading Location: [id number] Shoulder X-Ray 01/12/25 11:40 IMPRESSION: NO ACUTE FRACTURE OR DISLOCATION. Reading Location: [facility] Rhythm Strip Rhythm Strip: Sinus Rhythm Rate: 92 Ectopy: None Physical Exam Narrative Seen and examined Patient has chronic left shoulder pain. She said she hurt her left shoulder when she lost balance and fell on the bed at home. Complaint of left upper chest pain with radiation to left shoulder. Denies shortness of breath. Hypokalemia present Physical exam General: Alert, Oriented x3, Cooperative HEENT: Atraumatic, PERRLA, EOMI, Normocephalic. Oral: No Gingival or Mucosal Lesions/ Ulcerations Neck: Supple, No JVD, Negative Carotid Bruits Chest wall/Lungs: Air entry diminished in bilateral lung bases. No crepitation/rhonchi Cardiovascular: Sinus rhythm. S1-S2 regular. No murmur gallop or rub Abdomen: Bowel Sounds Present, Soft, Non Tender, Non-Distended : No dysuria. No renal angle tenderness. No suprapubic tenderness. Extremities: No edema, Capillary Refill Less than 3 Seconds Skin: No rashes, No breakdown Musculoskeletal: No Tenderness to Palpation of Joints or Extremities. ROM restricted. Neurological: Cranial nerves II-XII grossly intact, DTR 2+/4. No acute focal neurological deficit. Psych/Mental Status: Flat affect Assessment & Plan Assessment/Plan (1) Elevated brain natriuretic peptide (BNP) level: (2) Shoulder pain: PLAN: Plan 69-year-old female admitted with chest pain not relieved with nitro. Left chest pain with radiation to left shoulder pain, neck for last 1 day. She also has chronic left shoulder pain. Denies cough shortness of breath associated abdominal pain or nausea or vomiting. # Elevated BNP and chest x-ray findings suggestive of pulmonary venous congestion chronic HFrEF -Patient's chest x-ray with bilateral pulmonary vascular congestion and proBNP 2200 up from 347 earlier this year -Presently denying shortness of breath or leg swelling and clinically actually appears dry -Unclear etiology, has history of heart failure but most recently had recovered EF the last echo was in 2021, EF 50% mild segmental systolic dysfunction. [place] hypokinetic PASP 44 mmHg. 2D echo 01/12 shows normal LV size EF 45% moderate systolic segmental dysfunction. Normal mitral and tricuspid valve. No pericardial effusion. -Patient hypokalemic and clinically euvolemic therefore does not need diuretic Clinical Impression(s) from Imaging Studies Cervical Spine X-Ray 01/12/25 11:40 IMPRESSION: Hardware in position, with no significant interval change. Reading [facility] Chest X-Ray 01/12/25 11:40 IMPRESSION: Bilateral pulmonary vascular congestion. Reading Location: [id number] Shoulder X-Ray 01/12/25 11:40 IMPRESSION: NO ACUTE FRACTURE OR DISLOCATION. Reading Location: [facility] Echocardiogram 01/12/25 17:09 Interpretation Summary Normal LV size. The left ventricular ejection fraction is 45 %. Moderate segmental systolic dysfunction (see wall motion). Mild concentric left ventricular hypertrophy. # Left shoulder pain -Pain is in the left upper chest and shoulder and is reproducible on palpation, worse with movement and has been improved with topical/supportive care X-ray does not show any acute dislocation or fracture -Troponins flat -EKG overall nonspecific -PT/OT -Arthritis pain compound topical -Scheduled Tylenol -Low-dose as needed oxycodone -Continue home baclofen #Hypokalemia -Replace - Mild hypomagnesemia, magnesium was replaced. Repeat magnesium normal. Repeat BMP and phosphorus pending. 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 however saw her psychiatrist Dr. Sultana yesterday and her Seroquel was decreased, reports feeling better today #Paroxysmal Atrial Fibrillation -Rate control: Carvedilol -Anticoagulation: Eliquis #DVT ppx: Patient already on full dose anticoagulation Charges/Coding Visit Charges Inpatient E&M: 94726 Subs Hosp L2
[2025-01-13] MEDS: APIXABAN 5 MG TABLET PO (08:38)
[2025-01-13] MEDS: Aspirin E.C. 81 MG Tablet PO (08:39)
[2025-01-13] MEDS: Arthritis Pain Compound 60 CLICK TUBE TOPICAL (08:39)
--- NOTE | 2025-01-13 10:30 | CASEMGMT ---
Social Work PRAVIN spoke with the patient. Patient lives at home alone. Patient is set up with [employer] PIPP and HEAP programs for her utilities. Patient has services through [facility]. Patient reported she does not have family in the area. Patient reported she uses [employer] for transportation. She reported gets HH services. She reported her aids help her with getting groceries. SW called [facility] and spoke with the coverage tram. She reported the patient receives 8 hours of HH aids a week, 13 meals a week and a life line button. Her CM is Juliette Miller [phone]. PRAVIN left her a message. DANIEL Mcadams
[2025-01-13] MEDS: Senna/Docusate Sodium 1 Tablet 2 TABLET PO (13:33)
[2025-01-13] MEDS: Polyethylene Glycol 3350 17 GM PACKET PO (13:34)
--- NOTE | 2025-01-13 13:58 | CASEMGMT ---
Social Work SW spoke with the patient and she wants to discharge home. SW made the resumption of HH [facility]. Patient also has services with [facility]. Patient can use [employer] for transportation during the week. Patient reported her aid maybe able to transport her home if discharge occurs on the weekend. DANIEL Mcadams
--- NOTE | 2025-01-13 14:41 | CASEMGMT ---
SADLER Met with patient to complete SADLER form. SADLER form and its content were verbally explained and patient's questions were answered to the best of my ability.? Patient voiced understanding and signed SADLER form.? Patient provided a copy of signed SADLER form and original placed in patient's chart.? Patient had no further questions. Francisca Ortiz, Discharge Planning Asst
[2025-01-13 17:05] LABS: Anion Gap 11 (5-15); BUN 11 mg/dL (4-19); BUN/Creat Ratio 17.0 RATIO (10-20); Calcium,Total 10.7 mg/dL (7.6-11.0); Carbon Dioxide 24.7 mmol/L (21.0-32.0); Chloride 100 mmol/L (98-108); Estimated Creatinine Clearance 58.53 ml/min (50-250); Glucose 228 mg/dL (70-99); Potassium 3.1 mmol/L (3.3-5.1)
--- NOTE | 2025-01-13 21:30 | PCM.HOSP.N ---
Hospitalist Note STROKE ALERT: Stroke alert initiated at 9:30 PM with last known well approximately 8 to 8:30 PM with upon evaluation per nursing staff patient with difficulty expressing herself with no other specific neurological deficits. Vital signs were appropriate as well as blood sugar. Patient was transition to the CT scanner with chronic changes with no obvious acute findings. Given allergy CTA was deferred. Discussed case and exam was performed with [facility] neurologist who recommended temporarily holding the Eliquis until MRI of the brain obtained just in case size was notable and continue baby aspirin only with normal stroke workup including MRI as well as MRI of the head and carotid ultrasound given her allergy history. Will transition patient back to the PCU with his workup in mind. Of note patient had several pills in her purse including also what appeared to be a cannabis joint therefore UDS will also be requested.
--- NOTE | 2025-01-13 21:30 | CT_ITS ---
EXAM: CT Head Without Intravenous Contrast CLINICAL INDICATION: NEW ONSET AMS TECHNIQUE: Axial computed tomography images of the head/brain without intravenous contrast. This CT exam was performed using one or more of the following dose reduction techniques: automated exposure control, adjustment of the mA and/or kV according to patient size, and/or use of iterative reconstruction technique. COMPARISON: CT Head dated 12/20/2024 FINDINGS: BRAIN AND EXTRA-AXIAL SPACES: The cerebral and cerebellar sulci are prominent consistent with brain atrophy. Areas of decreased attenuation in the deep cerebral white matter are consistent with small vessel ischemic/degenerative changes. No acute intracranial hemorrhage, midline shift or mass effect. If symptoms persist, further evaluation with MRI is recommended. BONES/JOINTS: Unremarkable. No acute fracture. SOFT TISSUES: Unremarkable. SINUSES: Unremarkable as visualized. No acute sinusitis. MASTOID AIR CELLS: Unremarkable as visualized. No mastoid effusion. CT/STROKE Brain/Head without Cont IMPRESSION: 1. Generalized brain atrophy. 2. Small vessel ischemic/degenerative changes. 3. No acute intracranial hemorrhage, midline shift or mass effect. If symptoms persist, further evaluation with MRI is recommended. Stroke Alert: No acute intracranial hemorrhage The critical findings in the findings and impression above were relayed directl y by me by telephone to Jahaira Antonio on 01/13/2025 at 10:01 pm with readback verification. Reading Location: [id number]
--- NOTE | 2025-01-13 22:10 | CDU_ITS ---
Reason For Study Reason For Study: TIA/CVA Rt. Velocities/BP Lt. Velocities/BP Prox CCA 73/9.7 cm/sec. Prox CCA 55.7/5.2 cm/sec. Mid CCA 60.7/5 cm/sec. Mid CCA 57.1/7.3 cm/sec. Dist CCA 45.6/8.8 cm/sec. Dist CCA 48.6/7.3 cm/sec. Prox ICA 39/6.9 cm/sec. Prox ICA 45.6/12.6 cm/sec. Mid ICA 54.3/12.9 cm/sec. Mid ICA 43.7/11.7 cm/sec. Dist ICA 51/11.6 cm/sec. Dist ICA 36/10.6 cm/sec. Rt. ICA/CCA = 0.89. Lt. ICA/CCA = 0.80. Prox ECA 82.5/4.1 cm/sec. Prox ECA 81.5/6 cm/sec. Rt. Vert. 35.1/3.1 cm/sec. Lt. Vert. 33.3/6.9 cm/sec. Right Extracranial There is homogeneous, smooth atherosclerotic plaque noted in the right common carotid artery. There is heterogeneous, irregular atherosclerotic plaque noted in the right internal carotid artery. There is intimal thickening but no significant atherosclerotic plaque noted in the right external carotid artery. Antegrade flow is noted in the right vertebral artery. Left Extracranial There is homogeneous, smooth atherosclerotic plaque noted in the left common carotid artery. There is homogeneous, smooth atherosclerotic plaque noted in the left internal carotid artery. There is intimal thickening but no significant atherosclerotic plaque noted in the left external carotid artery. Antegrade flow is noted in the left vertebral artery. Procedure Carotid Duplex [id number]. This is a Carotid Duplex examination using B-mode, color flow and specral Doppler. Exam performed portable in patient room. VL/Carotid Duplex Ultrasound Interpretation Summary Mild (<50%) stenosis right extracranial internal carotid. Mild (<50%) stenosis left extracranial internal carotid. Patent and antegrade vertebrals bilaterally. Ordering Physician: Shannan Cameron Referring Physician: Carlton Willett Performed By: Valerie Lewis RVT
[2025-01-14 02:00] VITALS: BP 185/92; PULSE 90; RESP 18; TEMP 36.7; O2SAT 98
--- NOTE | 2025-01-14 02:00 | NURSING ---
NIH assessment difficult to complete due to patients difficulty following commands. Dr. Cameron aware. No new obvious deficits
[2025-01-14 03:12] VITALS: BMI 26.8
[2025-01-14 05:05] LABS: Barbiturate Urine NEGATIVE (< 200 ng/mL); Benzodiazepine Urine NEGATIVE (< 200 ng/mL); PCP Urine NEGATIVE (< 25 ng/mL); THC Urine NEGATIVE (< 50 ng/mL)
[2025-01-14 05:45] VITALS: BMI 25.7
[2025-01-14 06:00] VITALS: BP 180/90; PULSE 90; RESP 16; TEMP 36.6; O2SAT 95
--- NOTE | 2025-01-14 06:00 | MRI_ITS ---
PROCEDURE: BRAIN WITHOUT CONTRAST 01/14/2025 REASON FOR EXAM: TIA/CVA TECHNIQUE: Procedure Code: MRIBR Modality: MR Procedure: BRAIN WITHOUT CONTRAST Multiplanar and multisequence images were obtained. COMPARISON: CT head 01/13/2025. FINDINGS: Brain: Severe cerebral atrophy and chronic periventricular white matter disease. No restricted diffusion. No hemorrhage. No mass-effect or midline shift. The orbits are unremarkable without acute findings. Status post cataract surgery. The craniocervical junction is unremarkable. Ventricles: No ventriculomegaly. Major Intracranial Vessels: Patent. Sinuses: Clear. Mastoids: Clear. MRI/Brain without Contrast IMPRESSION: No acute brain abnormalities. Brain atrophy and white matter changes which are most likely due to chronic sma ll-vessel ischemia. Reading Location: [id number]
--- NOTE | 2025-01-14 06:22 | NURSING ---
pts daughter called last night during shift to get an update on her mom. Coworker nurse wrote down name and number for this nurse to call back. This nurse then looked at patients chart and daugther is not on patients contact list to share information with. Pt not coherent enough at this time to state whether or not she would like daughter on her contact list.
[2025-01-14 07:30] LABS: Cholesterol 137 mg/dL (<=200); Low Density Lipoprotein Calc. 38 mg/dL; Magnesium 1.5 mg/dL (1.5-2.2); Triglycerides 76 mg/dL; Very Low Density Lipoprotein 15 mg/dL (5-40); cholesterol:hdl ratio screen 1.63
[2025-01-14 07:37] VITALS: BP 178/96; PULSE 94; RESP 27; TEMP 36.4; O2SAT 98
--- NOTE | 2025-01-14 09:00 | PCM.PN.HOSP ---
Reason for Visit Chief Complaint: Left upper chest and shoulder pain, poor p.o. intake Objective Data Objective Data Vital Signs: Vital Signs Temp Pulse Resp BP Pulse Ox O2 Del Method 97.6 F L 94 27 H 178/96 H 98 Room Air 01/14/25 07:37 01/14/25 07:37 01/14/25 07:37 01/14/25 07:37 01/14/25 07:37 01/14/25 07:37 Oxygen Delivery Method Room Air Weight: 140 lb 14.006 oz Body Mass Index (BMI) 25.7 Intake & Output: Intake and Output for Last 24 Hours 01/12/25 01/13/25 01/14/25 23:59 23:59 23:59 Intake Total 1200.25 / 1200.25 200 / 200 Output Total 150 / 150 Balance 1200.25 / 1200.25 200 / 200 -150 / -150 Lab / Micro Data 01/13/25 05:39 01/13/25 15:09 Labs: Laboratory Results - last 24 hr 01/13/25 12:19: POC Glucose 186 H 01/13/25 15:09: Sodium 136, Potassium 3.1 L, Chloride 100, Carbon Dioxide 24.7, Anion Gap 11, BUN 11, Creatinine 0.62 L, Estim Creat Clear Calc 58.53, Est GFR (MDRD) Non-Af 96, BUN/Creatinine Ratio 17.0, Glucose 228 H, Calcium 10.7, Phosphorus 2.8 01/13/25 16:33: POC Glucose 173 H 01/13/25 21:09: POC Glucose 173 H 01/13/25 23:48: POC Glucose 164 H 01/14/25 04:07: Urine Opiates Screen NEGATIVE, U Buprenorphine Qual NEGATIVE, Ur Oxycodone Screen PRESUMPTIVE POSITIVE, Urine Methadone Screen NEGATIVE, Urine Fentanyl Screen NEGATIVE, Ur Barbiturates Screen NEGATIVE, Ur Phencyclidine Scrn NEGATIVE, Ur Amphetamines Screen NEGATIVE, U Benzodiazepines Scrn NEGATIVE, Urine Cocaine Screen NEGATIVE, U Cannabinoids Screen NEGATIVE 01/14/25 05:56: Hemoglobin A1c 6.6 H, Magnesium 1.5, Triglycerides 76, Cholesterol 137, LDL Cholesterol, Calc 38, VLDL Cholesterol 15, HDL Cholesterol 84, Cholesterol/HDL Ratio 1.63, TSH 1.020 01/14/25 06:54: POC Glucose 149 H Radiography Diagnostic Testing: Radiology Impression Echocardiogram 01/12/25 17:09 Interpretation Summary Normal LV size. The left ventricular ejection fraction is 45 %. Moderate segmental systolic dysfunction (see wall motion). Mild concentric left ventricular hypertrophy. Ordering Physician: Florence Santos Referring Physician: Carlton Rocha Performed By: Jyoti Gomez, RDCS, RVT Brain CT 01/13/25 21:30 IMPRESSION: 1. Generalized brain atrophy. 2. Small vessel ischemic/degenerative changes. 3. No acute intracranial hemorrhage, midline shift or mass effect. If symptoms persist, further evaluation with MRI is recommended. Stroke Alert: No acute intracranial hemorrhage The critical findings in the findings and impression above were relayed directly by me by telephone to Jahaira Antonio on 01/13/2025 at 10:01 pm with readback verification. Reading Location: [facility] Rhythm Strip Rhythm Strip: Sinus Rhythm Rate: 92 Ectopy: None Physical Exam Narrative Seen and examined Overnight events noted. A stroke alert was called at 9:30 PM with LKW approximately 8 to 8:30 PM. Patient had difficulty in expressing herself with no other specific neurological deficits. Patient had CT head which did not show any acute intercranial abnormality. Patient was seen by neurologist and did not find candidate for thrombolytic as she is on Eliquis. MRI head, MRA head and neck were ordered. Stroke workup ordered. Patient has chronic left shoulder pain. She said she hurt her left shoulder when she lost balance and fell on the bed at home. She was admitted with left upper chest pain with radiation to left shoulder. Denies shortness of breath. Hypokalemia present Physical exam General: Awake, looks confused disoriented. Altered mental status HEENT: Atraumatic, PERRLA, EOMI, Normocephalic. Oral: No Gingival or Mucosal Lesions/ Ulcerations Neck: Supple, No JVD, Negative Carotid Bruits Chest wall/Lungs: Air entry diminished in bilateral lung bases. No crepitation/rhonchi Cardiovascular: Sinus rhythm. S1-S2 regular. No murmur gallop or rub Abdomen: Bowel Sounds Present, Soft, Non Tender, Non-Distended : No dysuria. No renal angle tenderness. No suprapubic tenderness. Extremities: No edema, Capillary Refill Less than 3 Seconds Skin: No rashes, No breakdown Musculoskeletal: No Tenderness to Palpation of Joints or Extremities. ROM restricted. Neurological: Cranial nerves II-XII grossly intact, DTR 2+/4. No acute focal neurological deficit. Psych/Mental Status: Flat affect, inattention, possible delirium Assessment & Plan Assessment/Plan (1) Elevated brain natriuretic peptide (BNP) level: (2) Shoulder pain: PLAN: Plan 69-year-old female admitted with chest pain not relieved with nitro. Left chest pain with radiation to left shoulder pain, neck for last 1 day. She also has chronic left shoulder pain. Denies cough shortness of breath associated abdominal pain or nausea or vomiting. 1. Acute encephalopathy probably due to polypharmacy/metabolic/toxic encephalopathy or both: Stroke alert on 2024: Stroke alert was called for perceived expressive language deficit. Patient looked confused and disoriented in the morning. CT head and then MRI brain does not show acute intracranial abnormality but chronic changes of brain atrophy and white matter changes. Patient takes a lot of medications including opioids/Percocet, muscle relaxant baclofen, cannabis joint, modafinil, lidocaine patch and quetiapine. Baclofen dose decreased. Was on benazepril 20 mg will decrease to 10 mg daily. Quetiapine dose decreased to 50 mg nightly. Continue modafinil, patient probably has history of ADHD. UTOX was positive for oxycodone 2.5 mg for moderate pain and 5 mg for severe pain respectively. And patient is on [place], 5/325 mg 1 tablet for moderate pain and 2 tablets for severe pain respectively. at home. Discussed with the pharmacist and neurologist. Neurologist recommended continue Mirapex. Acute stroke ruled out. # Elevated BNP and chest x-ray findings suggestive of pulmonary venous congestion chronic HFrEF -Patient's chest x-ray with bilateral pulmonary vascular congestion and proBNP 2200 up from 347 earlier this year -Presently denying shortness of breath or leg swelling and clinically actually appears dry -Unclear etiology, has history of heart failure but most recently had recovered EF the last echo was in 2021, EF 50% mild segmental systolic dysfunction. [place] hypokinetic PASP 44 mmHg. 2D echo 01/12 shows normal LV size EF 45% moderate systolic segmental dysfunction. Normal mitral and tricuspid valve. No pericardial effusion. -Patient hypokalemic and clinically euvolemic therefore does not need diuretic 01/14 will repeat labs shows mild hypokalemia K3.1. Potassium replacement ordered. # Left shoulder pain -Pain is in the left upper chest and shoulder and is reproducible on palpation, worse with movement and has been improved with topical/supportive care X-ray does not show any acute dislocation or fracture -Troponins flat -EKG overall nonspecific -PT/OT -Arthritis pain compound topical -Scheduled Tylenol -Low-dose as needed oxycodone -Continue home baclofen #Hypokalemia -Replace - Mild hypomagnesemia, magnesium was replaced. Repeat magnesium normal. Repeat BMP and phosphorus pending. 01/14 mild hypokalemia potassium getting replaced. #Hypertension - Continue home antihypertensives, may need to adjust pending blood pressure, presently 157/84 in the ED # Restless leg syndrome -continue patient's home medication regimen #Hx of CAD -w/ previous stenting to LAD and angioplasty of second diagonal March 2016 following a STEMI -Continue home medications -Heart healthy diet #GERD -Continue PPI #Type 2 diabetes mellitus -Glucose checks and sliding scale insulin 01/14: A1c 6.6%. 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 however saw her psychiatrist Dr. Sultana yesterday and her Seroquel was decreased, reports feeling better today #Paroxysmal Atrial Fibrillation -Rate control: Carvedilol -Anticoagulation: Eliquis #DVT ppx: Patient already on full dose anticoagulation Clinical Impression(s) from Imaging Studies Cervical Spine X-Ray 01/12/25 11:40 IMPRESSION: Hardware in position, with no significant interval change. [facility] Chest X-Ray 01/12/25 11:40 IMPRESSION: Bilateral pulmonary vascular congestion. Reading Location: [id number] Shoulder X-Ray 01/12/25 11:40 IMPRESSION: NO ACUTE FRACTURE OR DISLOCATION. Reading Location: [facility] Echocardiogram 01/12/25 17:09 Interpretation Summary Normal LV size. The left ventricular ejection fraction is 45 %. Moderate segmental systolic dysfunction (see wall motion). Mild concentric left ventricular hypertrophy. Ordering Physician: Florence Santos Referring Physician: Carlton Rocha Performed By: Jyoti Gomez, MIKE, RVT Brain CT 01/13/25 21:30 IMPRESSION: 1. Generalized brain atrophy. 2. Small vessel ischemic/degenerative changes. 3. No acute intracranial hemorrhage, midline shift or mass effect. If symptoms persist, further evaluation with MRI is recommended. Stroke Alert: No acute intracranial hemorrhage The critical findings in the findings and impression above were relayed directly by me by telephone to Jahaira Antonio on 01/13/2025 at 10:01 pm with readback verification. Reading Location: [id number] Brain MRI 01/14/25 06:00 IMPRESSION: No acute brain abnormalities. Brain atrophy and white matter changes which are most likely due to chronic small-vessel ischemia. Reading Location: [facility] Charges/Coding Addendum Addendum: Total time of the visit including total time spent in counseling or coordination of care, (more than 50% of the total time, spent in obtaining medical information from nurses and other ancillary care providers ,explaining to the patient about labs, imaging, diagnosis and management of active complex medical conditions), discussion with neurologist DIANE Renner, review of labs and imaging is 35 minutes. Visit Charges Inpatient E&M: 60652 Subs Hosp L3 NIHSS NIHSS Nursing Documentation NIHSS Nursing Documentation: NIHSS: Ischemic Stroke/TIA Start: 01/13/25 22:12 Text: For PCU Patients: NIH and Neuro Check every 4 Status: Active hours, PRN and with change in RN caregiver. Freq: [id number] Protocol: Activity Type Activity Date Activity User E-sign Co-sign Detail Recorded Client Recorded Date Recorded By Document 01/14/25 07:22 [facility] [id number] 01/14/25 07:37 [facility] 01/14/25 07:22 NIH Stroke Scale [NIHSS] A score of 0 is normal or asymptomatic . Total possible score is 42. Inpatient: RN or Physician to activate a stroke alert for onset of new stroke symptoms or with NIHSS increase >/= 3 points. Following change in neurological status, NIHSS will be performed per physician order or more frequently PRN. -1a. Level of Consciousness 0 - Alert; keenly responsive -1b. LOC Questions 1 - Answers ONE question correctly -1c. LOC Commands 2 - Performs NEITHER task correctly -2. Best Gaze 0 - Normal -3. Visual 0 - No visual loss -4. Facial Palsy 0 - Normal symmetrical movements -5a. Left Arm 0 - No drift; arm holds 90 ( or 45) degrees for full 10 seconds -5b. Right Arm 0 - No drift; arm holds 90 ( or 45) degrees for full 10 seconds -6a. Left Leg 0 - No drift; leg holds 30- degree position for full 5 seconds -6b. Right Leg 0 - No drift; leg holds 30- degree position for full 5 seconds -7. Limb Ataxia 0 - Absent -8. Sensory 0 - Normal; no sensory loss -9. Best Language 1 - Mild-to- moderate aphasia; -10. Dysarthria 0 - Normal -11. Extinction and Inattention 0 - No abnormality -Total 4 Query Text:A score of 0 is normal or asymptomatic. Total possible score is 42 . ED: Notify Physician for NIHSS increase by > / = 3 points. Inpatient: RN or Physician to activate a stroke alert for NIHSS increase of > / = 3 points. Coma Scale [Assess] -Eye Opening Spontaneous -Motor Obeys Commands -Verbal Confused [Total] -Coma Scale Total 14
--- NOTE | 2025-01-14 11:06 | NEURO.PNOTE ---
Assessment and Plan: Neuro Assessment/Plan Telestroke (Audio/video interface) Attending Progress Note 69 y/o woman with h/o DM, GERD, hx HR w/ reduced EF, fatigue, restless leg syndrome, depression, A-fib, hypertension, coronary artery disease, chronic pain in multiple pain and psych meds p/w chest pain for past 3 days.Patient reports she drinks enough water but has had poor p.o. intake as she has felt anxious and depressed so has not been eating well, denies any abdominal pain, nausea or vomiting, no changes in bowel or bladder, no swelling in extremities. Yesterday, noticed to have difficulty talking so stroke alert was called. CT head- no acute intracranial process. CTA deferred due to contrast allergy. LDL-38. A1c-6.6. Today, she seems to be restless and in generalized pain with moderate aphasia. Able to move all extremities. After taking to bedside RN who discussed with patient's sister, there is a concern for drug use and use of non-prescription meds. Diagnosis: Stroke vs Metabolic/infectious/toxic encephalopathy Plan: Continue eliquis and statin. If unable to obtain MRI and MRA then obtain CT head tomorrrow morning along with carotid duplex. Discussed with hospitalist about polypharmacy, would defer to primary team. Check tox screen. general production worker consult as concern is raised by bedside RN. OT/PT/RECEIVING MANAGER. Control of vascular risk factors. I personally attended this patient and spent a total time of 40 minutes evaluating this patient including clinical assessment, review of chart, medical history imaging, and determining appropriate treatment and workup. Subject: Neurology Subjective 69 y/o woman with h/o DM, GERD, hx HR w/ reduced EF, fatigue, restless leg syndrome, depression, A-fib, hypertension, coronary artery disease, chronic pain in multiple pain and psych meds p/w chest pain for past 3 days.Patient reports she drinks enough water but has had poor p.o. intake as she has felt anxious and depressed so has not been eating well, denies any abdominal pain, nausea or vomiting, no changes in bowel or bladder, no swelling in extremities. Yesterday, noticed to have difficulty talking so stroke alert was called. CT head- no acute intracranial process. CTA deferred due to contrast allergy. LDL-38. A1c-6.6. Today, she seems to be restless and in generalized pain with moderate aphasia. Able to move all extremities. After taking to bedside RN who discussed with patient's sister, there is a concern for drug use and use of non-prescription meds. EEG Results Procedure Details EEG Procedure Details: ELO HERNANDEZ is a 69 year old F with a past medical history of , who presents for evaluation of Electroencephalogram on DATE at TIME Objective Data Objective Data Vital Signs: Vital Signs Temp Pulse Resp BP Pulse Ox O2 Del Method 97.6 F L 94 27 H 178/96 H 98 Room Air 01/14/25 07:37 01/14/25 07:37 01/14/25 07:37 01/14/25 07:37 01/14/25 07:37 01/14/25 07:37 Oxygen Delivery Method Room Air Weight: 63.9 kg Body Mass Index (BMI) 25.7 Intake & Output: Intake and Output for Last 24 Hours 01/12/25 01/13/25 01/14/25 23:59 23:59 23:59 Intake Total 1200.25 / 1200.25 200 / 200 Output Total 150 / 150 Balance 1200.25 / 1200.25 200 / 200 -150 / -150 Lab / Micro Data 01/13/25 05:39 01/13/25 15:09 Labs: Laboratory Results - last 24 hr 01/13/25 12:19: POC Glucose 186 H 01/13/25 15:09: Sodium 136, Potassium 3.1 L, Chloride 100, Carbon Dioxide 24.7, Anion Gap 11, BUN 11, Creatinine 0.62 L, Estim Creat Clear Calc 58.53, Est GFR (MDRD) Non-Af 96, BUN/Creatinine Ratio 17.0, Glucose 228 H, Calcium 10.7, Phosphorus 2.8 01/13/25 16:33: POC Glucose 173 H 01/13/25 21:09: POC Glucose 173 H 01/13/25 23:48: POC Glucose 164 H 01/14/25 04:07: Urine Opiates Screen NEGATIVE, U Buprenorphine Qual NEGATIVE, Ur Oxycodone Screen PRESUMPTIVE POSITIVE, Urine Methadone Screen NEGATIVE, Urine Fentanyl Screen NEGATIVE, Ur Barbiturates Screen NEGATIVE, Ur Phencyclidine Scrn NEGATIVE, Ur Amphetamines Screen NEGATIVE, U Benzodiazepines Scrn NEGATIVE, Urine Cocaine Screen NEGATIVE, U Cannabinoids Screen NEGATIVE 01/14/25 05:56: Hemoglobin A1c 6.6 H, Magnesium 1.5, Triglycerides 76, Cholesterol 137, LDL Cholesterol, Calc 38, VLDL Cholesterol 15, HDL Cholesterol 84, Cholesterol/HDL Ratio 1.63, TSH 1.020 01/14/25 06:54: POC Glucose 149 H Micro: Microbiology 01/12/25 18:14 Urine, Clean Catch Urine Culture - Preliminary Mixed Gram Positive Organisms GNR lactose pre owned sales consultant Radiography Diagnostic Testing: Radiology Impression Echocardiogram 01/12/25 17:09 Interpretation Summary Normal LV size. The left ventricular ejection fraction is 45 %. Moderate segmental systolic dysfunction (see wall motion). Mild concentric left ventricular hypertrophy. Ordering Physician: Florence Santos Referring Physician: Carlton Rocha Performed By: Jyoti Gomez, RDCS, RVT Brain CT 01/13/25 21:30 IMPRESSION: 1. Generalized brain atrophy. 2. Small vessel ischemic/degenerative changes. 3. No acute intracranial hemorrhage, midline shift or mass effect. If symptoms persist, further evaluation with MRI is recommended. Stroke Alert: No acute intracranial hemorrhage The critical findings in the findings and impression above were relayed directly by me by telephone to Jahaira Antonio on 01/13/2025 at 10:01 pm with readback verification. Reading Location: [facility] Rhythm Strip Rhythm Strip: Sinus Rhythm Rate: 92 Ectopy: None Physical Exam Narrative General: The patient appears restless and in generalized pain. Mental Status:? Moderate aphasia noticed. Cranial nerves:? Visual jeffery full, and extra-ocular motion was intact. Symmetric face. Motor: Normal strength in all extremities. Sensation: Intact to touch in all extremities.? Coordination:? Bilateral finger to nose was normal.? There was no dysmetria. Gait:? deferred. NIHSS NIHSS Nursing Documentation NIHSS Nursing Documentation: NIHSS: Ischemic Stroke/TIA Start: 01/13/25 22:12 Text: For PCU Patients: NIH and Neuro Check every 4 Status: Active hours, PRN and with change in RN caregiver. Freq: [id number] Protocol: Activity Type Activity Date Activity User E-sign Co-sign Detail Recorded Client Recorded Date Recorded By Document 01/14/25 07:22 [facility] [id number] 01/14/25 07:37 [facility] 01/14/25 07:22 NIH Stroke Scale [NIHSS] A score of 0 is normal or asymptomatic . Total possible score is 42. Inpatient: RN or Physician to activate a stroke alert for onset of new stroke symptoms or with NIHSS increase >/= 3 points. Following change in neurological status, NIHSS will be performed per physician order or more frequently PRN. -1a. Level of Consciousness 0 - Alert; keenly responsive -1b. LOC Questions 1 - Answers ONE question correctly -1c. LOC Commands 2 - Performs NEITHER task correctly -2. Best Gaze 0 - Normal -3. Visual 0 - No visual loss -4. Facial Palsy 0 - Normal symmetrical movements -5a. Left Arm 0 - No drift; arm holds 90 ( or 45) degrees for full 10 seconds -5b. Right Arm 0 - No drift; arm holds 90 ( or 45) degrees for full 10 seconds -6a. Left Leg 0 - No drift; leg holds 30- degree position for full 5 seconds -6b. Right Leg 0 - No drift; leg holds 30- degree position for full 5 seconds -7. Limb Ataxia 0 - Absent -8. Sensory 0 - Normal; no sensory loss -9. Best Language 1 - Mild-to- moderate aphasia; -10. Dysarthria 0 - Normal -11. Extinction and Inattention 0 - No abnormality -Total 4 Query Text:A score of 0 is normal or asymptomatic. Total possible score is 42 . ED: Notify Physician for NIHSS increase by > / = 3 points. Inpatient: RN or Physician to activate a stroke alert for NIHSS increase of > / = 3 points. Coma Scale [Assess] -Eye Opening Spontaneous -Motor Obeys Commands -Verbal Confused [Total] -Coma Scale Total 14 NIHSS 1a. Level of Consciousness: 0 - Alert; keenly responsive 1b. LOC Questions: 1 - Answers ONE question correctly 1c. LOC Commands: 0 - Performs BOTH tasks correctly 2. Best Gaze: 0 - Normal 3. Visual: 0 - No visual loss 4. Facial Palsy: 0 - Normal symmetrical movements 5a. Left Arm: 0 - No drift; arm holds 90 (or 45) degrees for full 10 seconds 5b. Right Arm: 0 - No drift; arm holds 90 (or 45) degrees for full 10 seconds 6a. Left Le - No drift; leg holds 30-degree position for full 5 seconds 6b. Right Le - No drift; leg holds 30-degree position for full 5 seconds 7. Limb Ataxia: 0 - Absent 8. Sensory: 0 - Normal; no sensory loss 9. Best Language: 1 - [id number] aphasia; 10. Dysarthria: 0 - Normal 11. Extinction and Inattention: 0 - No abnormality Total: 2
[2025-01-14] MEDS: Aspirin E.C. 81 MG Tablet PO (12:03)
[2025-01-14] MEDS: Senna/Docusate Sodium 1 Tablet 2 TABLET PO ×2 (12:05→21:35)
[2025-01-14] MEDS: Cholecalciferol (Vit D3) 125 MCG CAPSULE (5,000 UNITS) PO (12:30)
[2025-01-14 16:23] VITALS: BP 171/94; PULSE 98; RESP 18; TEMP 36.7; O2SAT 96; BMI 25.7
[2025-01-14 19:37] VITALS: O2SAT 97
[2025-01-14 21:20] VITALS: BP 173/86; PULSE 97; RESP 18; TEMP 37.1; O2SAT 97
--- NOTE | 2025-01-14 21:58 | PCM.HOSP.N ---
Hospitalist Note MRI negative, will restart eliquis and also her HTN regimen.
[2025-01-14] MEDS: APIXABAN 5 MG TABLET PO (22:14)
[2025-01-15 00:11] VITALS: BP 111/69
[2025-01-15 03:50] VITALS: BP 123/83; PULSE 95; RESP 16; TEMP 36.3; O2SAT 94
[2025-01-15 05:28] VITALS: BMI 25.3
[2025-01-15 06:38] LABS: Hematocrit 39.2 % (37-47); Hemoglobin 13.5 g/dL (12.0-15.0); Immature Granulocytes Count 0.020 X10^3/uL (0.0-0.0); Mean Corp Hgb Conc 34.4 g/dL (32-36); Mean Corpuscular Volume 84.8 fL (81-99); Mean Platelet Vol. 9.5 fl (6.2-12.0); NRBC Flagged by Analyzer 0 % (0-5); Platelet Count 187 K/mm3 (150-450); RBC Distribution Width CV 12.9 % (11.6-14.6); RBC Distribution Width SD 39.4 fl (35.1-43.9); Red Blood Count 4.62 M/mm3 (4.2-5.4); White Blood Count 7.7 K/mm3 (4.4-11.0)
[2025-01-15 07:15] LABS: Anion Gap 16 (5-15); BUN 11 mg/dL (4-19); BUN/Creat Ratio 20.6 RATIO (10-20); Calcium,Total 11.2 mg/dL (7.6-11.0); Carbon Dioxide 22.5 mmol/L (21.0-32.0); Chloride 100 mmol/L (98-108); Estimated Creatinine Clearance 56.88 ml/min (50-250); Glucose 175 mg/dL (70-99); Potassium 2.5 mmol/L (3.3-5.1)
[2025-01-15 07:29] VITALS: O2SAT 95
[2025-01-15 09:51] VITALS: BP 149/88; PULSE 101; RESP 18; TEMP 36.7; O2SAT 98
[2025-01-15] MEDS: Cholecalciferol (Vit D3) 125 MCG CAPSULE (5,000 UNITS) PO (09:54)
[2025-01-15] MEDS: Aspirin E.C. 81 MG Tablet PO (09:56)
[2025-01-15] MEDS: APIXABAN 5 MG TABLET PO ×2 (09:59→21:44)
[2025-01-15] MEDS: Senna/Docusate Sodium 1 Tablet 2 TABLET PO ×2 (09:59→21:47)
--- NOTE | 2025-01-15 11:49 | PN.HOSP_ITS ---
Subjective Subjective Continues to be altered, she is alert but does not respond to my questions appropriately Objective Data Objective Data Vital Signs: Vital Signs Temp Pulse Resp BP Pulse Ox O2 Del Method 98.1 F 101 H 18 149/88 H 98 Room Air 01/15/25 09:51 01/15/25 09:51 01/15/25 09:51 01/15/25 09:51 01/15/25 09:51 01/15/25 09:51 Oxygen Delivery Method Room Air Weight: 137 lb 12.623 oz Body Mass Index (BMI) 25.3 Intake & Output: Intake and Output for Last 24 Hours 01/14/25 01/15/25 01/16/25 03:59 03:59 03:59 Intake Total 200 / 200 50 / 50 Output Total 150 / 150 Balance 200 / 200 -100 / -100 Lab / Micro Data 01/15/25 05:45 01/15/25 05:45 Labs: Laboratory Results - last 24 hr 01/14/25 12:01: POC Glucose 174 H 01/14/25 16:25: POC Glucose 150 H 01/14/25 21:29: POC Glucose 138 H 01/15/25 05:45: WBC 7.7, RBC 4.62, Hgb 13.5, Hct 39.2, MCV 84.8, MCH 29.2, MCHC 34.4, RDW Std Deviation 39.4, RDW Coeff of Yeimi 12.9, Plt Count 187, MPV 9.5, Immature Gran % (Auto) 0.300, Neut % (Auto) 66.4, Lymph % (Auto) 17.9 L, [place] % (Auto) 12.0 H, Eos % (Auto) 3.0, Baso % (Auto) 0.4, Absolute Neuts (auto) 5.1, Absolute Lymphs (auto) 1.37, Nucleated RBC % 0, Sodium 138, Potassium 2.5 L*, Chloride 100, Carbon Dioxide 22.5, Anion Gap 16 H, BUN 11, Creatinine 0.55 L, Estim Creat Clear Calc 56.88, Est GFR (MDRD) Non-Af 98, BUN/Creatinine Ratio 20.6 H, Glucose 175 H, Calcium 11.2 H 01/15/25 06:36: POC Glucose 176 H Micro: Microbiology 01/12/25 18:14 Urine, Clean Catch Urine Culture - Final Mixed Gram Positive Organisms 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 Brain atrophy and white matter changes which are most likely due to chronic small-vessel ischemia. Reading Location: [facility] Rhythm Strip Rhythm Strip: Sinus Rhythm Rate: 92 Ectopy: None Physical Exam Narrative General: Alert, Oriented x1, Cooperative, No apparent distress HEENT: Atraumatic, PERRLA, EOMI, Normocephalic Oral: Moist Mucosa Neck: Supple, No JVD Lungs: Diminished, Normal air movement, No rhonchi, No wheeze, No rales Cardiovascular: Regular rate, Regular Rhythm, Normal S1, Normal S2, No murmurs Abdomen: Soft, Non Tender, Non-Distended, No Hepato-splenomegaly Extremities: No edema, Capillary Refill Less than 3 Seconds Skin: No rashes, No breakdown Musculoskeletal: No Tenderness to Palpation of Joints or Extremities Neurological: No focal neurological deficits, moves all extremities Psych/Mental Status: Flat Assessment & Plan Assessment/Plan (1) Elevated brain natriuretic peptide (BNP) level: (2) Shoulder pain: PLAN: Plan 1. Acute encephalopathy probably due to polypharmacy/metabolic/toxic encephalopathy or both: Stroke alert on 2024: Stroke alert was called for perceived expressive language deficit. Patient looked confused and disoriented in the morning. CT head and then MRI brain does not show acute intracranial abnormality but chronic changes of brain atrophy and white matter changes. Patient takes a lot of medications including opioids/Percocet, muscle relaxant baclofen, cannabis joint, modafinil, lidocaine patch and quetiapine. Baclofen dose decreased. Was on benazepril 20 mg will decrease to 10 mg daily. Quetiapine dose decreased to 50 mg nightly. Continue modafinil, patient probably has history of ADHD. UTOX was positive for oxycodone 2.5 mg for moderate pain and 5 mg for severe pain respectively. And patient is on [place], 5/325 mg 1 tablet for moderate pain and 2 tablets for severe pain respectively. at home. Discussed with the pharmacist and neurologist. Neurologist recommended continue Mirapex. Acute stroke ruled out. 01/15/2025: Presumption is that this is polypharmacy versus drug abuse though urine tox was negative for anything other than oxycodone. Appreciate neurology's assistance. Imaging was negative for stroke # Elevated BNP and chest x-ray findings suggestive of pulmonary venous congestion chronic HFrEF -Patient's chest x-ray with bilateral pulmonary vascular congestion and proBNP 2200 up from 347 earlier this year -Presently denying shortness of breath or leg swelling and clinically actually appears dry -Unclear etiology, has history of heart failure but most recently had recovered EF the last echo was in 2021, EF 50% mild segmental systolic dysfunction. [place] hypokinetic PASP 44 mmHg. 2D echo 01/12 shows normal LV size EF 45% moderate systolic segmental dysfunction. Normal mitral and tricuspid valve. No pericardial effusion. -Patient hypokalemic and clinically euvolemic therefore does not need diuretic 01/14 will repeat labs shows mild hypokalemia K3.1. Potassium replacement ordered. 01/15/2025: She has persistent hypokalemia, will recheck magnesium and phosphorus as well and then replace as indicated # Left shoulder pain -Pain is in the left upper chest and shoulder and is reproducible on palpation, worse with movement and has been improved with topical/supportive care X-ray does not show any acute dislocation or fracture -Troponins flat -EKG overall nonspecific -PT/OT -Arthritis pain compound topical -Scheduled Tylenol -Low-dose as needed oxycodone -Continue home baclofen #Hypertension - Continue home antihypertensives, may need to adjust pending blood pressure, presently 157/84 in the ED # Restless leg syndrome -continue patient's home medication regimen #Hx of CAD -w/ previous stenting to LAD and angioplasty of second diagonal March 2016 following a STEMI -Continue home medications -Heart healthy diet #GERD -Continue PPI #Type 2 diabetes mellitus -Glucose checks and sliding scale insulin 01/14: A1c 6.6%. 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 however saw her psychiatrist Dr. Sultana yesterday and her Seroquel was decreased, reports feeling better today #Paroxysmal Atrial Fibrillation -Rate control: Carvedilol -Anticoagulation: Eliquis DVT: Eliquis Charges/Coding Visit Charges Inpatient E&M: 15338 Subs Hosp L2 NIHSS NIHSS Nursing Documentation NIHSS Nursing Documentation: NIHSS: Ischemic Stroke/TIA Start: 01/13/25 22:12 Text: For PCU Patients: NIH and Neuro Check every 4 Status: Complete hours, PRN and with change in RN caregiver. Freq: Q4H Protocol: Activity Type Activity Date Activity User E-sign Co-sign Detail Recorded Client Recorded Date Recorded By Document 01/14/25 16:00 MIGUEL [id number] 01/14/25 16:23 TSTIKA 01/14/25 16:00 NIH Stroke Scale [NIHSS] A score of 0 is normal or asymptomatic . Total possible score is 42. Inpatient: RN or Physician to activate a stroke alert for onset of new stroke symptoms or with NIHSS increase >/= 3 points. Following change in neurological status, NIHSS will be performed per physician order or more frequently PRN. -1a. Level of Consciousness 0 - Alert; keenly responsive -1b. LOC Questions 1 - Answers ONE question correctly -1c. LOC Commands 0 - Performs BOTH tasks correctly -2. Best Gaze 0 - Normal -3. Visual 0 - No visual loss -4. Facial Palsy 0 - Normal symmetrical movements -5a. Left Arm 0 - No drift; arm holds 90 ( or 45) degrees for full 10 seconds -5b. Right Arm 0 - No drift; arm holds 90 ( or 45) degrees for full 10 seconds -6a. Left Leg 0 - No drift; leg holds 30- degree position for full 5 seconds -6b. Right Leg 0 - No drift; leg holds 30- degree position for full 5 seconds -7. Limb Ataxia 0 - Absent -8. Sensory 0 - Normal; no sensory loss -9. Best Language 1 - Mild-to- moderate aphasia; -10. Dysarthria 0 - Normal -11. Extinction and Inattention 0 - No abnormality -Total 2 Query Text:A score of 0 is normal or asymptomatic. Total possible score is 42 . ED: Notify Physician for NIHSS increase by > / = 3 points. Inpatient: RN or Physician to activate a stroke alert for NIHSS increase of > / = 3 points. Coma Scale [Assess] -Eye Opening Spontaneous -Motor Obeys Commands -Verbal Confused [Total] -Coma Scale Total 14
[2025-01-15 12:31] LABS: Magnesium 1.4 mg/dL (1.5-2.2)
[2025-01-15] MEDS: Magnesium Sulfate 2 GM in Dextrose 5%-Water (100mL Bag) 100 ML IV (16:22)
[2025-01-15] MEDS: Potassium Chloride 10mEq/100mL 10 MEQ/100 ML IV.SOLN. 100 MEQ IV BOLUS (16:22)
[2025-01-15 16:39] VITALS: BMI 25.3
[2025-01-15 16:40] VITALS: BP 146/90; PULSE 70; RESP 18; TEMP 36.8; O2SAT 98
[2025-01-15] MEDS: Potassium Chloride 10mEq/100mL 10 MEQ/100 ML IV.SOLN. 25 MEQ IV BOLUS ×2 (18:36→21:21)
[2025-01-15 21:27] VITALS: BP 140/84; PULSE 104; RESP 16; TEMP 36.2; O2SAT 100
[2025-01-15] MEDS: Arthritis Pain Compound 60 CLICK TUBE TOPICAL (22:48)
[2025-01-16] MEDS: Potassium Chloride 10mEq/100mL 10 MEQ/100 ML IV.SOLN. 35 MEQ IV BOLUS (00:24)
[2025-01-16 03:27] VITALS: BMI 25.3
[2025-01-16 03:29] VITALS: BP 144/80; PULSE 99; RESP 18; TEMP 36.9; O2SAT 95
[2025-01-16 05:46] LABS: Hematocrit 36.9 % (37-47); Hemoglobin 12.5 g/dL (12.0-15.0); Immature Granulocytes Count 0.030 X10^3/uL (0.0-0.0); Mean Corp Hgb Conc 33.9 g/dL (32-36); Mean Corpuscular Volume 85.8 fL (81-99); Mean Platelet Vol. 9.5 fl (6.2-12.0); NRBC Flagged by Analyzer 0 % (0-5); Platelet Count 211 K/mm3 (150-450); RBC Distribution Width CV 12.8 % (11.6-14.6); RBC Distribution Width SD 39.8 fl (35.1-43.9); Red Blood Count 4.30 M/mm3 (4.2-5.4); White Blood Count 7.0 K/mm3 (4.4-11.0)
[2025-01-16 06:11] LABS: Magnesium 1.7 mg/dL (1.5-2.2)
[2025-01-16 06:14] LABS: Anion Gap 13 (5-15); BUN 13 mg/dL (4-19); BUN/Creat Ratio 21.7 RATIO (10-20); Calcium,Total 11.0 mg/dL (7.6-11.0); Carbon Dioxide 24.3 mmol/L (21.0-32.0); Chloride 101 mmol/L (98-108); Estimated Creatinine Clearance 56.83 ml/min (50-250); Glucose 160 mg/dL (70-99); Potassium 2.7 mmol/L (3.3-5.1)
--- NOTE | 2025-01-16 06:23 | PCM.HOSP.N ---
Hospitalist Note Potassium 2.7, will given 40 mEq x 1 now and given this has been serially low will place BID 20 mEq regimen.
[2025-01-16] MEDS: Potassium Chloride Oral Soln 20 MEQ/15 ML UDC 40 MEQ PO (06:44)
[2025-01-16 08:18] VITALS: BMI 25.3
[2025-01-16 09:41] VITALS: BP 148/77; PULSE 105; RESP 18; TEMP 36.3; O2SAT 95
[2025-01-16] MEDS: Polyethylene Glycol 3350 17 GM PACKET PO (09:46)
[2025-01-16] MEDS: Lidocaine 5% Patch 1 PATCH TOPICAL (09:47)
[2025-01-16] MEDS: Arthritis Pain Compound 60 CLICK TUBE TOPICAL ×2 (09:47→21:31)
[2025-01-16] MEDS: Potassium Chloride Oral Soln 20 MEQ/15 ML UDC PO ×2 (09:49→21:37)
[2025-01-16] MEDS: APIXABAN 5 MG TABLET PO ×2 (09:55→21:40)
[2025-01-16] MEDS: Senna/Docusate Sodium 1 Tablet 2 TABLET PO ×2 (09:56→21:34)
[2025-01-16] MEDS: Cholecalciferol (Vit D3) 125 MCG CAPSULE (5,000 UNITS) PO (09:56)
[2025-01-16] MEDS: Aspirin E.C. 81 MG Tablet PO (09:57)
[2025-01-16 15:06] VITALS: BP 116/67; PULSE 99; RESP 18; TEMP 36.4; O2SAT 96
--- NOTE | 2025-01-16 15:41 | PCM.PN.HOSP ---
Subjective Subjective No issues overnight, no change from yesterday Objective Data Objective Data Vital Signs: Vital Signs Temp Pulse Resp BP Pulse Ox O2 Del Method 97.5 F L 99 18 116/67 96 Room Air 01/16/25 15:06 01/16/25 15:06 01/16/25 15:06 01/16/25 15:06 01/16/25 15:06 01/16/25 15:06 Oxygen Delivery Method Room Air Weight: 137 lb 9.095 oz Body Mass Index (BMI) 25.3 Intake & Output: Intake and Output for Last 24 Hours 01/15/25 01/16/25 01/17/25 03:59 03:59 03:59 Intake Total 50 / 50 549.00 / 549.00 50 / 50 Output Total 150 / 150 Balance -100 / -100 549.00 / 549.00 50 / 50 Lab / Micro Data 01/16/25 05:12 01/16/25 05:12 Labs: Laboratory Results - last 24 hr 01/15/25 10:14: POC Glucose 208 H 01/15/25 16:35: POC Glucose 147 H 01/15/25 21:37: POC Glucose 141 H 01/16/25 05:12: WBC 7.0, RBC 4.30, Hgb 12.5, Hct 36.9 L, MCV 85.8, MCH 29.1, MCHC 33.9, RDW Std Deviation 39.8, RDW Coeff of Yeimi 12.8, Plt Count 211, MPV 9.5, Immature Gran % (Auto) 0.400, Neut % (Auto) 58.6, Lymph % (Auto) 23.2, [place] % (Auto) 12.7 H, Eos % (Auto) 4.2, Baso % (Auto) 0.9, Absolute Neuts (auto) 4.1, Absolute Lymphs (auto) 1.61, Nucleated RBC % 0, Sodium 138, Potassium 2.7 L*, Chloride 101, Carbon Dioxide 24.3, Anion Gap 13, BUN 13, Creatinine 0.58 L, Estim Creat Clear Calc 56.83, Est GFR (MDRD) Non-Af 97, BUN/Creatinine Ratio 21.7 H, Glucose 160 H, Calcium 11.0, Magnesium 1.7 01/16/25 06:02: POC Glucose 178 H 01/16/25 10:54: POC Glucose 175 H Micro: Microbiology 01/12/25 18:14 Urine, Clean Catch Urine Culture - Final Mixed Gram Positive Organisms 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 Mild (<50%) stenosis left extracranial internal carotid. Patent and antegrade vertebrals bilaterally. Ordering Physician: Shannan Cameron Referring Physician: Carlton Willett Performed By: Valerie Lewis RVT Rhythm Strip Rhythm Strip: Sinus Rhythm Rate: 92 Ectopy: None Physical Exam Narrative General: Alert, Oriented x1, Cooperative, No apparent distress HEENT: Atraumatic, PERRLA, EOMI, Normocephalic Oral: Moist Mucosa Neck: Supple, No JVD Lungs: Diminished, Normal air movement, No rhonchi, No wheeze, No rales Cardiovascular: Regular rate, Regular Rhythm, Normal S1, Normal S2, No murmurs Abdomen: Soft, Non Tender, Non-Distended, No Hepato-splenomegaly Extremities: No edema, Capillary Refill Less than 3 Seconds Skin: No rashes, No breakdown Musculoskeletal: No Tenderness to Palpation of Joints or Extremities Neurological: No focal neurological deficits, moves all extremities Psych/Mental Status: Flat Assessment & Plan Assessment/Plan (1) Elevated brain natriuretic peptide (BNP) level: (2) Shoulder pain: PLAN: Plan 1. Acute encephalopathy probably due to polypharmacy/metabolic/toxic encephalopathy or both: Stroke alert on 2024: Stroke alert was called for perceived expressive language deficit. Patient looked confused and disoriented in the morning. CT head and then MRI brain does not show acute intracranial abnormality but chronic changes of brain atrophy and white matter changes. Patient takes a lot of medications including opioids/Percocet, muscle relaxant baclofen, cannabis joint, modafinil, lidocaine patch and quetiapine. Baclofen dose decreased. Was on benazepril 20 mg will decrease to 10 mg daily. Quetiapine dose decreased to 50 mg nightly. Continue modafinil, patient probably has history of ADHD. UTOX was positive for oxycodone 2.5 mg for moderate pain and 5 mg for severe pain respectively. And patient is on [place], 5/325 mg 1 tablet for moderate pain and 2 tablets for severe pain respectively. at home. Discussed with the pharmacist and neurologist. Neurologist recommended continue Mirapex. Acute stroke ruled out. 01/15/2025: Presumption is that this is polypharmacy versus drug abuse though urine tox was negative for anything other than oxycodone. Appreciate neurology's assistance. Imaging was negative for stroke 01/16/2025: Unclear as to the cause of her encephalopathy at this time. All workup so far has been negative # Elevated BNP and chest x-ray findings suggestive of pulmonary venous congestion chronic HFrEF -Patient's chest x-ray with bilateral pulmonary vascular congestion and proBNP 2200 up from 347 earlier this year -Presently denying shortness of breath or leg swelling and clinically actually appears dry -Unclear etiology, has history of heart failure but most recently had recovered EF the last echo was in 2021, EF 50% mild segmental systolic dysfunction. [place] hypokinetic PASP 44 mmHg. 2D echo 01/12 shows normal LV size EF 45% moderate systolic segmental dysfunction. Normal mitral and tricuspid valve. No pericardial effusion. -Patient hypokalemic and clinically euvolemic therefore does not need diuretic 01/14 will repeat labs shows mild hypokalemia K3.1. Potassium replacement ordered. 01/15/2025: She has persistent hypokalemia, will recheck magnesium and phosphorus as well and then replace as indicated 01/16/2025: She remains hypokalemic, will replace as well as will replace her magnesium level # Left shoulder pain -Pain is in the left upper chest and shoulder and is reproducible on palpation, worse with movement and has been improved with topical/supportive care X-ray does not show any acute dislocation or fracture -Troponins flat -EKG overall nonspecific -PT/OT -Arthritis pain compound topical -Scheduled Tylenol -Low-dose as needed oxycodone -Continue home baclofen #Hypertension - Continue home antihypertensives, may need to adjust pending blood pressure, presently 157/84 in the ED # Restless leg syndrome -continue patient's home medication regimen #Hx of CAD -w/ previous stenting to LAD and angioplasty of second diagonal March 2016 following a STEMI -Continue home medications -Heart healthy diet #GERD -Continue PPI #Type 2 diabetes mellitus -Glucose checks and sliding scale insulin 01/14: A1c 6.6%. 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 however saw her psychiatrist Dr. Sultana yesterday and her Seroquel was decreased, reports feeling better today #Paroxysmal Atrial Fibrillation -Rate control: Carvedilol -Anticoagulation: Eliquis DVT: Eliquis Charges/Coding Visit Charges Inpatient E&M: 23335 Subs Hosp L2 NIHSS NIHSS Nursing Documentation NIHSS Nursing Documentation: NIHSS: Ischemic Stroke/TIA Start: 01/13/25 22:12 Text: For PCU Patients: NIH and Neuro Check every 4 Status: Complete hours, PRN and with change in RN caregiver. Freq: Q4H Protocol: Activity Type Activity Date Activity User E-sign Co-sign Detail Recorded Client Recorded Date Recorded By Document 01/14/25 16:00 [facility] [id number] 01/14/25 16:23 TSTIKA 01/14/25 16:00 NIH Stroke Scale [NIHSS] A score of 0 is normal or asymptomatic . Total possible score is 42. Inpatient: RN or Physician to activate a stroke alert for onset of new stroke symptoms or with NIHSS increase >/= 3 points. Following change in neurological status, NIHSS will be performed per physician order or more frequently PRN. -1a. Level of Consciousness 0 - Alert; keenly responsive -1b. LOC Questions 1 - Answers ONE question correctly -1c. LOC Commands 0 - Performs BOTH tasks correctly -2. Best Gaze 0 - Normal -3. Visual 0 - No visual loss -4. Facial Palsy 0 - Normal symmetrical movements -5a. Left Arm 0 - No drift; arm holds 90 ( or 45) degrees for full 10 seconds -5b. Right Arm 0 - No drift; arm holds 90 ( or 45) degrees for full 10 seconds -6a. Left Leg 0 - No drift; leg holds 30- degree position for full 5 seconds -6b. Right Leg 0 - No drift; leg holds 30- degree position for full 5 seconds -7. Limb Ataxia 0 - Absent -8. Sensory 0 - Normal; no sensory loss -9. Best Language 1 - Mild-to- moderate aphasia; -10. Dysarthria 0 - Normal -11. Extinction and Inattention 0 - No abnormality -Total 2 Query Text:A score of 0 is normal or asymptomatic. Total possible score is 42 . ED: Notify Physician for NIHSS increase by > / = 3 points. Inpatient: RN or Physician to activate a stroke alert for NIHSS increase of > / = 3 points. Coma Scale [Assess] -Eye Opening Spontaneous -Motor Obeys Commands -Verbal Confused [Total] -Coma Scale Total 14
[2025-01-16] MEDS: Magnesium Sulfate 2 GM in Dextrose 5%-Water (100mL Bag) 100 ML IV (16:15)
[2025-01-16] MEDS: Potassium Chloride 10mEq/100mL 10 MEQ/100 ML IV.SOLN. 100 MEQ IV BOLUS ×4 (16:22→21:30)
[2025-01-16 20:01] LABS: Vitamin B12 2314 pg/mL (180-914); Vitamin D,25 Hydroxy 47.5 ng/mL (30-100)
[2025-01-16 21:06] VITALS: BP 145/107; PULSE 91; RESP 18; TEMP 36.3; O2SAT 98
[2025-01-17 00:15] VITALS: BMI 25.3
[2025-01-17 03:00] VITALS: BP 131/76; PULSE 91; RESP 16; TEMP 35.7; O2SAT 96
[2025-01-17 03:10] VITALS: BMI 25.3
[2025-01-17 05:49] LABS: Hematocrit 39.2 % (37-47); Hemoglobin 13.0 g/dL (12.0-15.0); Immature Granulocytes Count 0.010 X10^3/uL (0.0-0.0); Mean Corp Hgb Conc 33.2 g/dL (32-36); Mean Corpuscular Volume 86.9 fL (81-99); Mean Platelet Vol. 9.5 fl (6.2-12.0); NRBC Flagged by Analyzer 0 % (0-5); Platelet Count 245 K/mm3 (150-450); RBC Distribution Width CV 12.8 % (11.6-14.6); RBC Distribution Width SD 40.5 fl (35.1-43.9); Red Blood Count 4.51 M/mm3 (4.2-5.4); White Blood Count 5.9 K/mm3 (4.4-11.0)
[2025-01-17 06:26] LABS: Anion Gap 12 (5-15); BUN 12 mg/dL (4-19); BUN/Creat Ratio 21.0 RATIO (10-20); Calcium,Total 11.4 mg/dL (7.6-11.0); Carbon Dioxide 23.4 mmol/L (21.0-32.0); Chloride 104 mmol/L (98-108); Estimated Creatinine Clearance 56.88 ml/min (50-250); Glucose 158 mg/dL (70-99); Potassium 3.6 mmol/L (3.3-5.1)
[2025-01-17 10:17] VITALS: BP 138/86; PULSE 93; RESP 16; TEMP 36.3; O2SAT 98
[2025-01-17] MEDS: Cholecalciferol (Vit D3) 125 MCG CAPSULE (5,000 UNITS) PO (10:20)
[2025-01-17] MEDS: Aspirin E.C. 81 MG Tablet PO (10:20)
[2025-01-17] MEDS: Arthritis Pain Compound 60 CLICK TUBE TOPICAL ×2 (10:21→23:11)
[2025-01-17] MEDS: APIXABAN 5 MG TABLET PO ×2 (10:21→23:11)
[2025-01-17] MEDS: Polyethylene Glycol 3350 17 GM PACKET PO (10:22)
[2025-01-17] MEDS: Lidocaine 5% Patch 1 PATCH TOPICAL (10:22)
[2025-01-17] MEDS: Potassium Chloride Oral Soln 20 MEQ/15 ML UDC PO ×2 (10:22→23:10)
[2025-01-17] MEDS: Senna/Docusate Sodium 1 Tablet 2 TABLET PO ×2 (10:23→23:11)
--- NOTE | 2025-01-17 13:03 | CASEMGMT ---
Discharge Planning CHN verified that pt is active with their agency and receives PT/OT/SN/ST. SW's updated. Francisca Ortiz DC Planning Asst.
[2025-01-17 14:22] VITALS: BP 115/87; PULSE 102; RESP 16; TEMP 36.4; O2SAT 100
--- NOTE | 2025-01-17 14:40 | PCM.PN.HOSP ---
Subjective Subjective Talking again today and communicative depending on how she is talking to. She is oriented x 2-3 and apparently was having full sentence conversations with her son who called her from [facility] Objective Data Objective Data Vital Signs: Vital Signs Temp Pulse Resp BP Pulse Ox O2 Del Method 97.6 F L 102 H 16 115/87 H 100 Room Air 01/17/25 14:22 01/17/25 14:22 01/17/25 14:22 01/17/25 14:22 01/17/25 14:22 01/17/25 14:22 Oxygen Delivery Method Room Air Weight: 137 lb 12.623 oz Body Mass Index (BMI) 25.3 Intake & Output: Intake and Output for Last 24 Hours 01/16/25 01/17/25 01/18/25 03:59 03:59 03:59 Intake Total 549.00 / 549.00 654 / 654 Balance 549.00 / 549.00 654 / 654 Lab / Micro Data 01/17/25 05:26 01/17/25 05:26 Labs: Laboratory Results - last 24 hr 01/16/25 05:12: Vitamin B12 2314 H, Vitamin D 25-Hydroxy 47.5 01/16/25 16:14: POC Glucose 148 H 01/16/25 21:46: POC Glucose 143 H 01/17/25 05:26: WBC 5.9, RBC 4.51, Hgb 13.0, Hct 39.2, MCV 86.9, MCH 28.8, MCHC 33.2, RDW Std Deviation 40.5, RDW Coeff of [place] 12.8, Plt Count 245, MPV 9.5, Immature Gran % (Auto) 0.200, Neut % (Auto) 50.4, Lymph % (Auto) 31.3, [place] % (Auto) 11.7 H, Eos % (Auto) 5.2 H, Baso % (Auto) 1.2 H, Absolute Neuts (auto) 3.0, Absolute Lymphs (auto) 1.85, Nucleated RBC % 0, Sodium 140, Potassium 3.6, Chloride 104, Carbon Dioxide 23.4, Anion Gap 12, BUN 12, Creatinine 0.59 L, Estim Creat Clear Calc 56.88, Est GFR (MDRD) Non-Af 97, BUN/Creatinine Ratio 21.0 H, Glucose 158 H, Calcium 11.4 H 09/23/25 06:21: POC Glucose 160 H 01/17/25 11:10: POC Glucose 190 H Micro: Microbiology 01/12/25 18:14 Urine, Clean Catch Urine Culture - Final Mixed Gram Positive Organisms GNR lactose manager infrastructure Rhythm Strip Rhythm Strip: Sinus Rhythm Rate: 92 Ectopy: None Physical Exam Narrative General: Alert, Oriented x2-3, Cooperative, No apparent distress HEENT: Atraumatic, PERRLA, EOMI, Normocephalic Oral: Moist Mucosa Neck: Supple, No JVD Lungs: Diminished, Normal air movement, No rhonchi, No wheeze, No rales Cardiovascular: Regular rate, Regular Rhythm, Normal S1, Normal S2, No murmurs Abdomen: Soft, Non Tender, Non-Distended, No Hepato-splenomegaly Extremities: No edema, Capillary Refill Less than 3 Seconds Skin: No rashes, No breakdown Musculoskeletal: No Tenderness to Palpation of Joints or Extremities Neurological: No focal neurological deficits, moves all extremities Psych/Mental Status: Normal affect, appropriate Assessment & Plan Assessment/Plan (1) Elevated brain natriuretic peptide (BNP) level: (2) Shoulder pain: PLAN: Plan 1. Acute encephalopathy probably due to polypharmacy/metabolic/toxic encephalopathy or both: Stroke alert on 2024: Stroke alert was called for perceived expressive language deficit. Patient looked confused and disoriented in the morning. CT head and then MRI brain does not show acute intracranial abnormality but chronic changes of brain atrophy and white matter changes. Patient takes a lot of medications including opioids/Percocet, muscle relaxant baclofen, cannabis joint, modafinil, lidocaine patch and quetiapine. Baclofen dose decreased. Was on benazepril 20 mg will decrease to 10 mg daily. Quetiapine dose decreased to 50 mg nightly. Continue modafinil, patient probably has history of ADHD. UTOX was positive for oxycodone 2.5 mg for moderate pain and 5 mg for severe pain respectively. And patient is on [place], 5/325 mg 1 tablet for moderate pain and 2 tablets for severe pain respectively. at home. Discussed with the pharmacist and neurologist. Neurologist recommended continue Mirapex. Acute stroke ruled out. 01/15/2025: Presumption is that this is polypharmacy versus drug abuse though urine tox was negative for anything other than oxycodone. Appreciate neurology's assistance. Imaging was negative for stroke 01/16/2025: Unclear as to the cause of her encephalopathy at this time. All workup so far has been negative 01/17/2025: In discussion with her daughter yesterday evening they were concerned because she is nonverbal however today she is verbal and only thing that is changed is her potassium level is now 3.6, will have her evaluated by PT/OT to determine disposition. B12 was high and vitamin D was normal. Thiamine is pending # Elevated BNP and chest x-ray findings suggestive of pulmonary venous congestion chronic HFrEF -Patient's chest x-ray with bilateral pulmonary vascular congestion and proBNP 2200 up from 347 earlier this year -Presently denying shortness of breath or leg swelling and clinically actually appears dry -Unclear etiology, has history of heart failure but most recently had recovered EF the last echo was in 2021, EF 50% mild segmental systolic dysfunction. [place] hypokinetic PASP 44 mmHg. 2D echo 01/12 shows normal LV size EF 45% moderate systolic segmental dysfunction. Normal mitral and tricuspid valve. No pericardial effusion. -Patient hypokalemic and clinically euvolemic therefore does not need diuretic 01/14 will repeat labs shows mild hypokalemia K3.1. Potassium replacement ordered. 01/15/2025: She has persistent hypokalemia, will recheck magnesium and phosphorus as well and then replace as indicated 01/16/2025: She remains hypokalemic, will replace as well as will replace her magnesium level 01/17/2025: Calcium level is normalized # Left shoulder pain -Pain is in the left upper chest and shoulder and is reproducible on palpation, worse with movement and has been improved with topical/supportive care X-ray does not show any acute dislocation or fracture -Troponins flat -EKG overall nonspecific -PT/OT -Arthritis pain compound topical -Scheduled Tylenol -Low-dose as needed oxycodone -Continue home baclofen #Hypertension - Continue home antihypertensives, may need to adjust pending blood pressure, presently 157/84 in the ED # Restless leg syndrome -continue patient's home medication regimen #Hx of CAD -w/ previous stenting to LAD and angioplasty of second diagonal March 2016 following a STEMI -Continue home medications -Heart healthy diet #GERD -Continue PPI #Type 2 diabetes mellitus -Glucose checks and sliding scale insulin 01/14: A1c 6.6%. 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 however saw her psychiatrist Dr. Sultana yesterday and her Seroquel was decreased, reports feeling better today #Paroxysmal Atrial Fibrillation -Rate control: Carvedilol -Anticoagulation: Eliquis DVT: Eliquis Charges/Coding Visit Charges Inpatient E&M: 88560 Subs Hosp L2 NIHSS NIHSS Nursing Documentation NIHSS Nursing Documentation: NIHSS: Ischemic Stroke/TIA Start: 01/13/25 22:12 Text: For PCU Patients: NIH and Neuro Check every 4 Status: Complete hours, PRN and with change in RN caregiver. Freq: Q4H Protocol: Activity Type Activity Date Activity User E-sign Co-sign Detail Recorded Client Recorded Date Recorded By Document 01/14/25 16:00 [facility] [id number] 01/14/25 16:23 TSTIKA 01/14/25 16:00 NIH Stroke Scale [NIHSS] A score of 0 is normal or asymptomatic . Total possible score is 42. Inpatient: RN or Physician to activate a stroke alert for onset of new stroke symptoms or with NIHSS increase >/= 3 points. Following change in neurological status, NIHSS will be performed per physician order or more frequently PRN. -1a. Level of Consciousness 0 - Alert; keenly responsive -1b. LOC Questions 1 - Answers ONE question correctly -1c. LOC Commands 0 - Performs BOTH tasks correctly -2. Best Gaze 0 - Normal -3. Visual 0 - No visual loss -4. Facial Palsy 0 - Normal symmetrical movements -5a. Left Arm 0 - No drift; arm holds 90 ( or 45) degrees for full 10 seconds -5b. Right Arm 0 - No drift; arm holds 90 ( or 45) degrees for full 10 seconds -6a. Left Leg 0 - No drift; leg holds 30- degree position for full 5 seconds -6b. Right Leg 0 - No drift; leg holds 30- degree position for full 5 seconds -7. Limb Ataxia 0 - Absent -8. Sensory 0 - Normal; no sensory loss -9. Best Language 1 - Mild-to- moderate aphasia; -10. Dysarthria 0 - Normal -11. Extinction and Inattention 0 - No abnormality -Total 2 Query Text:A score of 0 is normal or asymptomatic. Total possible score is 42 . ED: Notify Physician for NIHSS increase by > / = 3 points. Inpatient: RN or Physician to activate a stroke alert for NIHSS increase of > / = 3 points. Coma Scale [Assess] -Eye Opening Spontaneous -Motor Obeys Commands -Verbal Confused [Total] -Coma Scale Total 14
[2025-01-17 23:04] VITALS: BP 145/81; PULSE 99; RESP 16; TEMP 36.9; O2SAT 98
[2025-01-18] VITALS (7 sets, daily range): BP systolic 130–170; BP diastolic 75–90; PULSE 79–100; RESP 16–18; TEMP 36.1–36.6; O2SAT 94–100; BMI 25.3; BMI 25.1
[2025-01-18] MEDS: 0.9% Saline Lock 10 ML Syringe IV (04:28)
[2025-01-18 07:47] LABS: Anion Gap 12 (5-15); BUN 14 mg/dL (4-19); BUN/Creat Ratio 23.5 RATIO (10-20); Calcium,Total 11.0 mg/dL (7.6-11.0); Carbon Dioxide 21.6 mmol/L (21.0-32.0); Chloride 105 mmol/L (98-108); Estimated Creatinine Clearance 56.67 ml/min (50-250); Glucose 176 mg/dL (70-99); Potassium 3.4 mmol/L (3.3-5.1)
--- NOTE | 2025-01-18 09:06 | CASEMGMT ---
Social Work SW spoke with the patient regarding DC plans. SW spoke with the patient regarding going to a rehab facility for more rehab. Patient reported she was at [facility] before. Patient was okay with going to a rehab facility if needed at [place]. Patient reported her son called her yesterday and she also had visitors. SW called PT/OT and left a message asking for updated evaluations for the patient. DANIEL Mcadams
[2025-01-18] MEDS: Polyethylene Glycol 3350 17 GM PACKET PO (09:23)
[2025-01-18] MEDS: Potassium Chloride Oral Soln 20 MEQ/15 ML UDC PO ×2 (09:23→20:19)
[2025-01-18] MEDS: Senna/Docusate Sodium 1 Tablet 2 TABLET PO ×2 (09:24→20:17)
[2025-01-18] MEDS: APIXABAN 5 MG TABLET PO ×2 (09:24→20:17)
[2025-01-18] MEDS: Cholecalciferol (Vit D3) 125 MCG CAPSULE (5,000 UNITS) PO (09:25)
[2025-01-18] MEDS: Aspirin E.C. 81 MG Tablet PO (09:25)
[2025-01-18] MEDS: Lidocaine 5% Patch 1 PATCH TOPICAL (09:38)
[2025-01-18] MEDS: Arthritis Pain Compound 60 CLICK TUBE TOPICAL ×2 (09:40→20:16)
--- NOTE | 2025-01-18 10:12 | PN.HOSP_ITS ---
Subjective Subjective Communicative and alert today indicating a nonorganic cause of her issues over the weekend Objective Data Objective Data Vital Signs: Vital Signs Temp Pulse Resp BP Pulse Ox O2 Del Method 97.8 F 100 17 130/77 H 100 Room Air 01/18/25 09:17 01/18/25 09:17 01/18/25 09:17 01/18/25 09:17 01/18/25 09:17 01/18/25 09:46 Oxygen Delivery Method Room Air Weight: 136 lb 10.986 oz Body Mass Index (BMI) 25.1 Intake & Output: Intake and Output for Last 24 Hours 01/17/25 01/18/25 01/19/25 03:59 03:59 03:59 Intake Total 654 / 654 Balance 654 / 654 Lab / Micro Data 01/17/25 05:26 01/18/25 06:55 Labs: Laboratory Results - last 24 hr 01/17/25 11:10: POC Glucose 190 H 01/17/25 16:17: POC Glucose 210 H 01/17/25 23:06: POC Glucose 124 H 01/18/25 06:31: POC Glucose 173 H 01/18/25 06:55: Sodium 138, Potassium 3.4, Chloride 105, Carbon Dioxide 21.6, Anion Gap 12, BUN 14, Creatinine 0.58 L, Estim Creat Clear Calc 56.67, Est GFR (MDRD) Non-Af 97, BUN/Creatinine Ratio 23.5 H, Glucose 176 H, Calcium 11.0 Micro: Microbiology 01/12/25 18:14 Urine, Clean Catch Urine Culture - Final Mixed Gram Positive Organisms GNR lactose student recruiter Rhythm Strip Rhythm Strip: Sinus Rhythm Rate: 92 Ectopy: None Physical Exam Narrative General: Alert, Oriented x2-3, Cooperative, No apparent distress HEENT: Atraumatic, PERRLA, EOMI, Normocephalic Oral: Moist Mucosa Neck: Supple, No JVD Lungs: Diminished, Normal air movement, No rhonchi, No wheeze, No rales Cardiovascular: Regular rate, Regular Rhythm, Normal S1, Normal S2, No murmurs Abdomen: Soft, Non Tender, Non-Distended, No Hepato-splenomegaly Extremities: No edema, Capillary Refill Less than 3 Seconds Skin: No rashes, No breakdown Musculoskeletal: No Tenderness to Palpation of Joints or Extremities Neurological: No focal neurological deficits, moves all extremities Psych/Mental Status: Normal affect, appropriate Assessment & Plan Assessment/Plan (1) Elevated brain natriuretic peptide (BNP) level: (2) Shoulder pain: PLAN: Plan 1. Acute encephalopathy probably due to polypharmacy/metabolic/toxic encephalopathy or both: Stroke alert on 2024: Stroke alert was called for perceived expressive language deficit. Patient looked confused and disoriented in the morning. CT head and then MRI brain does not show acute intracranial abnormality but chronic changes of brain atrophy and white matter changes. Patient takes a lot of medications including opioids/Percocet, muscle relaxant baclofen, cannabis joint, modafinil, lidocaine patch and quetiapine. Baclofen dose decreased. Was on benazepril 20 mg will decrease to 10 mg daily. Quetiapine dose decreased to 50 mg nightly. Continue modafinil, patient probably has history of ADHD. UTOX was positive for oxycodone 2.5 mg for moderate pain and 5 mg for severe pain respectively. And patient is on [place], 5/325 mg 1 tablet for moderate pain and 2 tablets for severe pain respectively. at home. Discussed with the pharmacist and neurologist. Neurologist recommended continue Mirapex. Acute stroke ruled out. 01/15/2025: Presumption is that this is polypharmacy versus drug abuse though urine tox was negative for anything other than oxycodone. Appreciate neurology's assistance. Imaging was negative for stroke 01/16/2025: Unclear as to the cause of her encephalopathy at this time. All workup so far has been negative 01/17/2025: In discussion with her daughter yesterday evening they were concerned because she is nonverbal however today she is verbal and only thing that is changed is her potassium level is now 3.6, will have her evaluated by PT/OT to determine disposition. B12 was high and vitamin D was normal. Thiamine is pending 01/18/2025: Can likely start her on thiamine given her poor p.o. intake, would likely benefit from placement # Elevated BNP and chest x-ray findings suggestive of pulmonary venous congestion chronic HFrEF -Patient's chest x-ray with bilateral pulmonary vascular congestion and proBNP 2200 up from 347 earlier this year -Presently denying shortness of breath or leg swelling and clinically actually appears dry -Unclear etiology, has history of heart failure but most recently had recovered EF the last echo was in 2021, EF 50% mild segmental systolic dysfunction. [place] hypokinetic PASP 44 mmHg. 2D echo 01/12 shows normal LV size EF 45% moderate systolic segmental dysfunction. Normal mitral and tricuspid valve. No pericardial effusion. -Patient hypokalemic and clinically euvolemic therefore does not need diuretic 01/14 will repeat labs shows mild hypokalemia K3.1. Potassium replacement ordered. 01/15/2025: She has persistent hypokalemia, will recheck magnesium and phosphorus as well and then replace as indicated 01/16/2025: She remains hypokalemic, will replace as well as will replace her magnesium level 01/17/2025: Calcium level is normalized # Left shoulder pain -Pain is in the left upper chest and shoulder and is reproducible on palpation, worse with movement and has been improved with topical/supportive care X-ray does not show any acute dislocation or fracture -Troponins flat -EKG overall nonspecific -PT/OT -Arthritis pain compound topical -Scheduled Tylenol -Low-dose as needed oxycodone -Continue home baclofen #Hypertension - Continue home antihypertensives, may need to adjust pending blood pressure, presently 157/84 in the ED # Restless leg syndrome -continue patient's home medication regimen #Hx of CAD -w/ previous stenting to LAD and angioplasty of second diagonal March 2016 following a STEMI -Continue home medications -Heart healthy diet #GERD -Continue PPI #Type 2 diabetes mellitus -Glucose checks and sliding scale insulin 01/14: A1c 6.6%. 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 however saw her psychiatrist Dr. Sultana yesterday and her Seroquel was decreased, reports feeling better today #Paroxysmal Atrial Fibrillation -Rate control: Carvedilol -Anticoagulation: Eliquis DVT: Eliquis Charges/Coding Visit Charges Inpatient E&M: 85968 Subs Hosp L2 NIHSS NIHSS Nursing Documentation NIHSS Nursing Documentation: NIHSS: Ischemic Stroke/TIA Start: 01/13/25 22:12 Text: For PCU Patients: NIH and Neuro Check every 4 Status: Complete hours, PRN and with change in RN caregiver. Freq: Q4H Protocol: Activity Type Activity Date Activity User E-sign Co-sign Detail Recorded Client Recorded Date Recorded By Document 01/14/25 16:00 MIGUEL [id number] 01/14/25 16[facility]23 [facility]/14/[facility] 16[facility]00 NIH Stroke Scale [NIHSS] A score of 0 is normal or asymptomatic . Total possible score is 42. Inpatient: RN or Physician to activate a stroke alert for onset of new stroke symptoms or with NIHSS increase >/= 3 points. Following change in neurological status, NIHSS will be performed per physician order or more frequently PRN. -1a. Level of Consciousness 0 - Alert; keenly responsive -1b. LOC Questions 1 - Answers ONE question correctly -1c. LOC Commands 0 - Performs BOTH tasks correctly -2. Best Gaze 0 - Normal -3. Visual 0 - No visual loss -4. Facial Palsy 0 - Normal symmetrical movements -5a. Left Arm 0 - No drift; arm holds 90 ( or 45) degrees for full 10 seconds -5b. Right Arm 0 - No drift; arm holds 90 ( or 45) degrees for full 10 seconds -6a. Left Leg 0 - No drift; leg holds 30- degree position for full 5 seconds -6b. Right Leg 0 - No drift; leg holds 30- degree position for full 5 seconds -7. Limb Ataxia 0 - Absent -8. Sensory 0 - Normal; no sensory loss -9. Best Language 1 - Mild-to- moderate aphasia; -10. Dysarthria 0 - Normal -11. Extinction and Inattention 0 - No abnormality -Total 2 Query Text:A score of 0 is normal or asymptomatic. Total possible score is 42 . ED: Notify Physician for NIHSS increase by > / = 3 points. Inpatient: RN or Physician to activate a stroke alert for NIHSS increase of > / = 3 points. Coma Scale [Assess] -Eye Opening Spontaneous -Motor Obeys Commands -Verbal Confused [Total] -Coma Scale Total 14
--- NOTE | 2025-01-18 10:46 | CASEMGMT ---
Discharge Planning A list of SNF providers including quality and resource use data and consistent with the patient's preferred geographic region, medical needs, and insurance network was created in [employer] Guide.? This list was provided to the SW. Francisca Ortiz Discharge Planning Asst.
--- NOTE | 2025-01-18 10:59 | CASEMGMT ---
Addendum entered by Opal Fang 01/18/25 13:32: PRAVIN A list of?SNF providers including quality and resource use data and consistent with the patient's preferred geographic region, medical needs, and insurance network was created in [employer] Guide.? This list was provided to the patient. DANIEL Dawn Original Note: Social Work SW spoke with the patient regarding which skilled rehab facility she wants to go to at discharge. Patient chose [facility]. Patient reported SW can call her sister and update her. DANIEL Mcadams
[2025-01-18] MEDS: Thiamine Hydrochloride 100 MG Tablet PO (11:03)
[2025-01-18] MEDS: Potassium Chloride Oral Tablet 20 MEQ 40 MEQ PO (11:03)
--- NOTE | 2025-01-18 11:04 | CASEMGMT ---
Social Work SW called the sister and informed her that the patient is going to discharge to a skilled rehab facility to receive more therapy. PARVIN informed her that the patient wants to go to [facility]. The sister is okay with her going there. DANIEL Mcadams
--- NOTE | 2025-01-18 15:35 | CASEMGMT ---
Social Work [facility] accepted the patient and started precert. DANIEL Mcadams
[2025-01-19] VITALS (7 sets, daily range): BP systolic 136–142; BP diastolic 70–85; PULSE 81–95; RESP 14–17; TEMP 35.5–37; O2SAT 95–99; BMI 25.1; BMI 25.9
[2025-01-19] MEDS: Senna/Docusate Sodium 1 Tablet 2 TABLET PO ×2 (10:30→22:12)
[2025-01-19] MEDS: Aspirin E.C. 81 MG Tablet PO (10:31)
[2025-01-19] MEDS: Thiamine Hydrochloride 100 MG Tablet PO (10:31)
[2025-01-19] MEDS: Lidocaine 5% Patch 1 PATCH TOPICAL (10:31)
[2025-01-19] MEDS: Potassium Chloride Oral Soln 20 MEQ/15 ML UDC PO ×2 (10:32→22:09)
[2025-01-19] MEDS: Cholecalciferol (Vit D3) 125 MCG CAPSULE (5,000 UNITS) PO (10:32)
[2025-01-19] MEDS: Arthritis Pain Compound 60 CLICK TUBE TOPICAL ×2 (10:32→22:02)
[2025-01-19] MEDS: APIXABAN 5 MG TABLET PO ×2 (10:32→22:04)
[2025-01-19] MEDS: 0.9% Saline Lock 10 ML Syringe IV ×2 (10:58→22:48)
--- NOTE | 2025-01-19 14:55 | PCM.PN.HOSP ---
Subjective Subjective no issues overnight, Feeling better and appears to be back to her baseline Objective Data Objective Data Vital Signs: Vital Signs Temp Pulse Resp BP Pulse Ox O2 Del Method 98.6 F 95 16 136/81 H 96 Room Air 01/19/25 08:50 01/19/25 10:23 01/19/25 10:23 01/19/25 10:23 01/19/25 10:23 01/19/25 10:23 Oxygen Delivery Method Room Air Weight: 141 lb 8.588 oz Body Mass Index (BMI) 25.9 Intake & Output: Intake and Output for Last 24 Hours 01/18/25 01/19/25 01/20/25 03:59 03:59 03:59 Intake Total 300 / 300 0 / 0 Balance 300 / 300 0 / 0 Medical Nutrition Assessment Dietitian: Malnutrition Criteria Met Start: 01/18/25 15:17 Freq: Status: Active Protocol: Document 01/18/25 15:17 RMA (Rec: 01/18/25 15:17 RMA [id number]) Nutrition Malnutrition Evidence of Yes Malnutrition Exists Malnutrition ( Chronic moderate): Evidenced By Suboptimal Energy Intake (Moderate),Weight Loss ( Moderate) Intake Problem Inadequate Oral Intake Etiology related to swallowing/chewing difficulty Signs/Symptoms as evidenced by failed dysphagia screening and need for mechanically altered food; PO less than 50% meals since admit Status Active Problem Clinical Problem Chronic Disease or Condition Related Malnutrition Etiology moderate protein-calorie malnutrition in the context of chronic disease and debility related to inadequate energy/oral intake and swallowing difficulty Signs/Symptoms as evidenced by ~7% unintentional weight loss x past 3- 4 months, PO meeting less than 75% estimated nutrition needs and need for mechanically altered diet to minced/ moist food Status Active Problem Recommendation Dietitian Will liberalize diet to Carbohydrate Controlled with Recommendations/ consistency/texture as per STRIP MILL OPERATOR. Changes Will continue 120mL ensure plus HP 3 times per day w/ meals. Will add fortified pudding with lunch and dinner. Lab / Micro Data 01/17/25 05:26 01/18/25 06:55 Labs: Laboratory Results - last 24 hr 01/18/25 16:05: POC Glucose 120 H 01/18/25 20:35: POC Glucose 202 H 01/19/25 06:44: POC Glucose 152 H 01/19/25 10:56: POC Glucose 247 H Micro: Microbiology 01/12/25 18:14 Urine, Clean Catch Urine Culture - Final Mixed Gram Positive Organisms GNR lactose social media content manager Rhythm Strip Rhythm Strip: Sinus Rhythm Rate: 92 Ectopy: None Physical Exam Narrative General: Alert, Oriented x3, Cooperative, No apparent distress HEENT: Atraumatic, PERRLA, EOMI, Normocephalic Oral: Moist Mucosa Neck: Supple, No JVD Lungs: Diminished, Normal air movement, No rhonchi, No wheeze, No rales Cardiovascular: Regular rate, Regular Rhythm, Normal S1, Normal S2, No murmurs Abdomen: Soft, Non Tender, Non-Distended, No Hepato-splenomegaly Extremities: No edema, Capillary Refill Less than 3 Seconds Skin: No rashes, No breakdown Musculoskeletal: No Tenderness to Palpation of Joints or Extremities Neurological: No focal neurological deficits, moves all extremities Psych/Mental Status: Normal affect, appropriate Assessment & Plan Assessment/Plan (1) Elevated brain natriuretic peptide (BNP) level: (2) Shoulder pain: PLAN: Plan 1. Acute encephalopathy probably due to polypharmacy/metabolic/toxic encephalopathy or both: Stroke alert on 2024: Stroke alert was called for perceived expressive language deficit. Patient looked confused and disoriented in the morning. CT head and then MRI brain does not show acute intracranial abnormality but chronic changes of brain atrophy and white matter changes. Patient takes a lot of medications including opioids/Percocet, muscle relaxant baclofen, cannabis joint, modafinil, lidocaine patch and quetiapine. Baclofen dose decreased. Was on benazepril 20 mg will decrease to 10 mg daily. Quetiapine dose decreased to 50 mg nightly. Continue modafinil, patient probably has history of ADHD. UTOX was positive for oxycodone 2.5 mg for moderate pain and 5 mg for severe pain respectively. And patient is on [place], 5/325 mg 1 tablet for moderate pain and 2 tablets for severe pain respectively. at home. Discussed with the pharmacist and neurologist. Neurologist recommended continue Mirapex. Acute stroke ruled out. 01/15/2025: Presumption is that this is polypharmacy versus drug abuse though urine tox was negative for anything other than oxycodone. Appreciate neurology's assistance. Imaging was negative for stroke 01/16/2025: Unclear as to the cause of her encephalopathy at this time. All workup so far has been negative 01/17/2025: In discussion with her daughter yesterday evening they were concerned because she is nonverbal however today she is verbal and only thing that is changed is her potassium level is now 3.6, will have her evaluated by PT/OT to determine disposition. B12 was high and vitamin D was normal. Thiamine is pending 01/18/2025: Can likely start her on thiamine given her poor p.o. intake, would likely benefit from placement 01/19/2025: Awaiting for pre-CERT # Elevated BNP and chest x-ray findings suggestive of pulmonary venous congestion chronic HFrEF -Patient's chest x-ray with bilateral pulmonary vascular congestion and proBNP 2200 up from 347 earlier this year -Presently denying shortness of breath or leg swelling and clinically actually appears dry -Unclear etiology, has history of heart failure but most recently had recovered EF the last echo was in 2021, EF 50% mild segmental systolic dysfunction. [place] hypokinetic PASP 44 mmHg. 2D echo 01/12 shows normal LV size EF 45% moderate systolic segmental dysfunction. Normal mitral and tricuspid valve. No pericardial effusion. -Patient hypokalemic and clinically euvolemic therefore does not need diuretic 01/14 will repeat labs shows mild hypokalemia K3.1. Potassium replacement ordered. 01/15/2025: She has persistent hypokalemia, will recheck magnesium and phosphorus as well and then replace as indicated 01/16/2025: She remains hypokalemic, will replace as well as will replace her magnesium level 01/17/2025: Calcium level is normalized # Left shoulder pain -Pain is in the left upper chest and shoulder and is reproducible on palpation, worse with movement and has been improved with topical/supportive care X-ray does not show any acute dislocation or fracture -Troponins flat -EKG overall nonspecific -PT/OT -Arthritis pain compound topical -Scheduled Tylenol -Low-dose as needed oxycodone -Continue home baclofen #Hypertension - Continue home antihypertensives, may need to adjust pending blood pressure, presently 157/84 in the ED 01/19/2025: Will not make any adjustments in the hospital blood pressure so far. Be stabilized # Restless leg syndrome -continue patient's home medication regimen #Hx of CAD -w/ previous stenting to LAD and angioplasty of second diagonal March 2016 following a STEMI -Continue home medications -Heart healthy diet #GERD -Continue PPI #Type 2 diabetes mellitus -Glucose checks and sliding scale insulin 01/14: A1c 6.6%. 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 however saw her psychiatrist Dr. Sultana yesterday and her Seroquel was decreased, reports feeling better today #Paroxysmal Atrial Fibrillation -Rate control: Carvedilol -Anticoagulation: Eliquis DVT: Eliquis Charges/Coding Visit Charges Inpatient E&M: 52543 Subs Hosp L2 NIHSS NIHSS Nursing Documentation NIHSS Nursing Documentation: NIHSS: Ischemic Stroke/TIA Start: 01/13/25 22:12 Text: For PCU Patients: NIH and Neuro Check every 4 Status: Complete hours, PRN and with change in RN caregiver. Freq: Q4H Protocol: Activity Type Activity Date Activity User E-sign Co-sign Detail Recorded Client Recorded Date Recorded By Document 01/14/25 16[facility]00 [id number] 01/14/25 16:23 TSTIKA 01/14/25 16:00 NIH Stroke Scale [NIHSS] A score of 0 is normal or asymptomatic . Total possible score is 42. Inpatient: RN or Physician to activate a stroke alert for onset of new stroke symptoms or with NIHSS increase >/= 3 points. Following change in neurological status, NIHSS will be performed per physician order or more frequently PRN. -1a. Level of Consciousness 0 - Alert; keenly responsive -1b. LOC Questions 1 - Answers ONE question correctly -1c. LOC Commands 0 - Performs BOTH tasks correctly -2. Best Gaze 0 - Normal -3. Visual 0 - No visual loss -4. Facial Palsy 0 - Normal symmetrical movements -5a. Left Arm 0 - No drift; arm holds 90 ( or 45) degrees for full 10 seconds -5b. Right Arm 0 - No drift; arm holds 90 ( or 45) degrees for full 10 seconds -6a. Left Leg 0 - No drift; leg holds 30- degree position for full 5 seconds -6b. Right Leg 0 - No drift; leg holds 30- degree position for full 5 seconds -7. Limb Ataxia 0 - Absent -8. Sensory 0 - Normal; no sensory loss -9. Best Language 1 - Mild-to- moderate aphasia; -10. Dysarthria 0 - Normal -11. Extinction and Inattention 0 - No abnormality -Total 2 Query Text:A score of 0 is normal or asymptomatic. Total possible score is 42 . ED: Notify Physician for NIHSS increase by > / = 3 points. Inpatient: RN or Physician to activate a stroke alert for NIHSS increase of > / = 3 points. Coma Scale [Assess] -Eye Opening Spontaneous -Motor Obeys Commands -Verbal Confused [Total] -Coma Scale Total 14
[2025-01-20 03:25] VITALS: BP 138/63; PULSE 79; RESP 18; TEMP 36.1; O2SAT 98
[2025-01-20 05:46] VITALS: BMI 25.9
[2025-01-20 06:19] LABS: Hematocrit 36.7 % (37-47); Hemoglobin 12.3 g/dL (12.0-15.0); Immature Granulocytes Count 0.020 X10^3/uL (0.0-0.0); Mean Corp Hgb Conc 33.5 g/dL (32-36); Mean Corpuscular Volume 88.2 fL (81-99); Mean Platelet Vol. 9.6 fl (6.2-12.0); NRBC Flagged by Analyzer 0 % (0-5); Platelet Count 240 K/mm3 (150-450); RBC Distribution Width CV 12.9 % (11.6-14.6); RBC Distribution Width SD 41.6 fl (35.1-43.9); Red Blood Count 4.16 M/mm3 (4.2-5.4); White Blood Count 5.4 K/mm3 (4.4-11.0)
[2025-01-20 07:58] LABS: Anion Gap 10 (5-15); BUN 17 mg/dL (4-19); BUN/Creat Ratio 23.9 RATIO (10-20); Calcium,Total 10.7 mg/dL (7.6-11.0); Carbon Dioxide 21.4 mmol/L (21.0-32.0); Chloride 102 mmol/L (98-108); Estimated Creatinine Clearance 57.66 ml/min (50-250); Glucose 151 mg/dL (70-99); Potassium 4.1 mmol/L (3.3-5.1)
[2025-01-20 08:03] VITALS: BP 110/77; PULSE 72; RESP 18; TEMP 36.6; O2SAT 100
[2025-01-20] MEDS: Thiamine Hydrochloride 100 MG Tablet PO (08:22)
[2025-01-20] MEDS: Aspirin E.C. 81 MG Tablet PO (08:22)
[2025-01-20] MEDS: Cholecalciferol (Vit D3) 125 MCG CAPSULE (5,000 UNITS) PO (08:22)
[2025-01-20] MEDS: Lidocaine 5% Patch 1 PATCH TOPICAL (08:22)
[2025-01-20] MEDS: APIXABAN 5 MG TABLET PO (08:23)
[2025-01-20] MEDS: Potassium Chloride Oral Soln 20 MEQ/15 ML UDC PO (08:23)
[2025-01-20] MEDS: Senna/Docusate Sodium 1 Tablet 2 TABLET PO (08:24)
[2025-01-20] MEDS: Polyethylene Glycol 3350 17 GM PACKET PO (08:25)
[2025-01-20] MEDS: Arthritis Pain Compound 60 CLICK TUBE TOPICAL (08:25)
--- NOTE | 2025-01-20 08:47 | CASEMGMT ---
Discharge Planning Updates sent to [facility]. [place] remains pending. Francisca Ortiz DC Planning Asst.
--- NOTE | 2025-01-20 10:48 | CASEMGMT ---
Dm Rodney has obtained auth to admit. Auth is good until 01/23. SWs updated. Francisca Ortiz DC Planning Asst.
--- NOTE | 2025-01-20 10:52 | PCM.TXEXTCAR ---
Diet Diet Order/Speech Therapy: INPATIENT Hospital Diet / Speech Therapy Order(s) 01/18/25 15:18 Diet: Carbohydrate Controlled Food consistency:: Mechanical (Minced/Moist) Liquid Consistency:: Regular/Thin Type of Dietary Supplement:: 4oz Ensure+HP w/ meals Diet Comments: fortified pudding w/ lunch and dinner tray Speech Therapy Comments: TOTAL FEED, alternate bites/sips 1:1 ratio Routine Orders/Code Status Routine Lab Work: CBC and BMP Code Status: Full Code DC O2, CPAP, BIPAP needs Home O2 Discharge instructions: No Therapies Physical Therapy: Eval and Treat Occupational Therapy: Eval and Treat Speech Therapy: Eval and Treat Problem/Diagnosis (1) Elevated brain natriuretic peptide (BNP) level: Status: Acute Code(s): R79.89 - Other specified abnormal findings of blood chemistry (2) Shoulder pain: Status: Acute Code(s): M25.519 - Pain in unspecified shoulder Plan 1. Acute encephalopathy probably due to polypharmacy/metabolic/toxic encephalopathy or both: Stroke alert on 2024: Stroke alert was called for perceived expressive language deficit. Patient looked confused and disoriented in the morning. CT head and then MRI brain does not show acute intracranial abnormality but chronic changes of brain atrophy and white matter changes. Patient takes a lot of medications including opioids/Percocet, muscle relaxant baclofen, cannabis joint, modafinil, lidocaine patch and quetiapine. Baclofen dose decreased. Was on benazepril 20 mg will decrease to 10 mg daily. Quetiapine dose decreased to 50 mg nightly. Continue modafinil, patient probably has history of ADHD. UTOX was positive for oxycodone 2.5 mg for moderate pain and 5 mg for severe pain respectively. And patient is on [place], 5/325 mg 1 tablet for moderate pain and 2 tablets for severe pain respectively. at home. Discussed with the pharmacist and neurologist. Neurologist recommended continue Mirapex. Acute stroke ruled out. 01/15/2025: Presumption is that this is polypharmacy versus drug abuse though urine tox was negative for anything other than oxycodone. Appreciate neurology's assistance. Imaging was negative for stroke 01/16/2025: Unclear as to the cause of her encephalopathy at this time. All workup so far has been negative 01/17/2025: In discussion with her daughter yesterday evening they were concerned because she is nonverbal however today she is verbal and only thing that is changed is her potassium level is now 3.6, will have her evaluated by PT/OT to determine disposition. B12 was high and vitamin D was normal. Thiamine is pending 01/18/2025: Can likely start her on thiamine given her poor p.o. intake, would likely benefit from placement 01/19/2025: Awaiting for pre-CERT # Elevated BNP and chest x-ray findings suggestive of pulmonary venous congestion chronic HFrEF -Patient's chest x-ray with bilateral pulmonary vascular congestion and proBNP 2200 up from 347 earlier this year -Presently denying shortness of breath or leg swelling and clinically actually appears dry -Unclear etiology, has history of heart failure but most recently had recovered EF the last echo was in 2021, EF 50% mild segmental systolic dysfunction. [place] hypokinetic PASP 44 mmHg. 2D echo 01/12 shows normal LV size EF 45% moderate systolic segmental dysfunction. Normal mitral and tricuspid valve. No pericardial effusion. -Patient hypokalemic and clinically euvolemic therefore does not need diuretic 01/14 will repeat labs shows mild hypokalemia K3.1. Potassium replacement ordered. 01/15/2025: She has persistent hypokalemia, will recheck magnesium and phosphorus as well and then replace as indicated 01/16/2025: She remains hypokalemic, will replace as well as will replace her magnesium level 01/17/2025: Calcium level is normalized # Left shoulder pain -Pain is in the left upper chest and shoulder and is reproducible on palpation, worse with movement and has been improved with topical/supportive care X-ray does not show any acute dislocation or fracture -Troponins flat -EKG overall nonspecific -PT/OT -Arthritis pain compound topical -Scheduled Tylenol -Low-dose as needed oxycodone -Continue home baclofen #Hypertension - Continue home antihypertensives, may need to adjust pending blood pressure, presently 157/84 in the ED 01/19/2025: Will not make any adjustments in the hospital blood pressure so far. Be stabilized # Restless leg syndrome -continue patient's home medication regimen #Hx of CAD -w/ previous stenting to LAD and angioplasty of second diagonal March 2016 following a STEMI -Continue home medications -Heart healthy diet #GERD -Continue PPI #Type 2 diabetes mellitus -Glucose checks and sliding scale insulin 01/14: A1c 6.6%. 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 however saw her psychiatrist Dr. Sultana yesterday and her Seroquel was decreased, reports feeling better today #Paroxysmal Atrial Fibrillation -Rate control: Carvedilol -Anticoagulation: Eliquis DVT: Eliquis Allergies/Procedures Done in Hospital Allergies vancomycin Allergy (Severe, Verified 01/12/25 09:50) Anaphylaxis indomethacin (From Indocin) Allergy (Verified 01/12/25 09:50) Hives indomethacin sodium (From Indocin) Allergy (Verified 01/12/25 09:50) Hives iodine Allergy (Verified 01/12/25 09:50) Hives propoxyphene napsylate (From Darvocet-N) Allergy (Verified 01/12/25 09:50) Out of control trazodone Adverse Reaction (Intermediate, Verified 01/12/25 09:50) Other can't wake up aripiprazole (From Abilify) Adverse Reaction (Verified 01/12/25 09:50) Other drool uncontrollably aspirin Adverse Reaction (Verified 01/12/25 09:50) Upset Stomach when taken in high doses clindamycin Adverse Reaction (Verified 01/12/25 09:50) Nausea metformin Adverse Reaction (Verified 01/12/25 09:50) Other IT CAUSES MY KIDNEYS TO DO WEIRD THINGS sumatriptan (From Imitrex) Adverse Reaction (Verified 01/12/25 09:50) Vomiting Type of Care/Length of Stay Estimated LOS: Convalescent Care Less Than 30 days Type of Care Needed: Skilled Rehab Potential: Good Prognosis: Good Additional Orders/Day of Discharge Day of Discharge: 01/20/25 Dietary and Speech Recommendations Dietitian Recommendations/Changes: Will liberalize diet to Carbohydrate Controlled with consistency/texture as per HAMMER MILL OPERATOR. Will continue 120mL ensure plus HP 3 times per day w/ meals. Will add fortified pudding with lunch and dinner. Discharge Plan Admission Admit Date/Time: 01/15/25 15:01 Attending Provider: Filiberto Lin Primary Care Provider: Carlton Rocha [facility] Consulting Providers: Florence Santos; Ivan Schwartz; Gabriel Yeung; Adelaida Viramontes; Kandy Rueda; Dayana Woods; Suhas Renner; Amalia Porras; Reymundo Sands; Gautam Childers; Daniel Barboza; Carmen Rivera; Katharina Valentine; Eliseo Valdviia; Mónica Whitley; Laurel Marinelli; Chapin Naranjo; Fawad Nolan; Alex Allen; Fidel Rosario; Lily Benitez; Christine Reynolds; Mikhail Aquino Discharge Orders/Prescriptions Prescriptions: New Arthritis Pain Compound 3 click topical BID Qty: 0 0RF donepezil 10 mg Tablet 10 mg PO 1200 Qty: 0 0RF baclofen 10 mg Tablet 10 mg PO BID Qty: 0 0RF gabapentin 100 mg Capsule 100 mg PO DAILY Qty: 0 0RF quetiapine 25 mg Tablet 50 mg PO QHS Qty: 0 0RF pramipexole 1 mg Tablet 1 mg PO QHS Qty: 0 0RF thiamine HCl (vitamin B1) 100 mg Tablet 100 mg PO BREAKFAST Qty: 0 0RF potassium chloride 20 mEq/15 mL Liquid 20 meq PO BID Qty: 0 0RF pramipexole 0.5 mg Tablet 0.5 mg PO 1200 Qty: 0 0RF Continued cholecalciferol (vitamin D3) 125 mcg (5,000 unit) capsule 125 mcg PO DAILY ferrous sulfate 325 mg (65 mg iron) tablet 325 mg PO DAILY aspirin [Adult Aspirin Regimen] 81 mg tablet,delayed release (DR/EC) 81 mg PO DAILY insulin lispro 100 unit/mL insulin pen 1 sliding scale dose subcut [facility] Patient Comments: Use with meals based on PRE meal blood sugar SLIDING SCALE as needed #1 (1 unit for every 50 over 150) Max 20 units daily. albuterol sulfate 2.5 mg /3 mL (0.083 %) solution for nebulization 2.5 mg inhalation Q8H PRN (Reason: Dyspnea, wheezing) Qty: 180 0RF hydrocortisone 2.5 % cream 1 applic topical BID PRN (Reason: skin irritation) Qty: 454 1RF Gemtesa 75 mg tablet 75 mg PO DAILY lidocaine [Lidoderm] 5 % adhesive patch,medicated 1 patch topical DAILY Rx Instructions: leave on most painful area for up to 12 hrs sucralfate 1 gram tablet 1 g PO 4X/DAY carvedilol 6.25 mg tablet 6.25 mg PO BID Qty: 180 3RF Rx Instructions: must administer with a meal/food isosorbide mononitrate 30 mg tablet extended release 24 hr 30 mg PO BID Qty: 180 3RF nitroglycerin 0.4 mg tablet, sublingual 0.4 mg sublingual Q5-15M Qty: 25 3RF ramelteon 8 mg tablet 8 mg PO QHS PRN (Reason: sleep) Qty: 90 1RF ondansetron HCl 4 mg tablet 4 mg PO Q8H PRN Qty: 30 2RF duloxetine 30 mg capsule,delayed release(DR/EC) 30 mg PO BID Qty: 180 2RF modafinil 200 MG tablet 200 mg PO DAILY acetaminophen 500 MG tablet 1,000 mg PO TID PRN (Reason: pain 1-02/03) Qty: 1 0RF Rx Instructions: alternate with ibuprofen atorvastatin 40 mg tablet 40 mg PO QHS ascorbic acid (vitamin C) 500 mg tablet,chewable 500 mg PO DAILY Prolia 60 mg/mL syringe 60 mg subcut [id number] Patient Comments: PT STATES LAST GIVEN END OF JUNE tizanidine 2 mg tablet 2 mg PO DAILY PRN (Reason: pain) Rx Instructions: TAKE 1 TABLET BY MOUTH EVERY MORNING and 1 to 2 TABLETS AT BEDTIME NEEDED FOR PAIN control nystatin [Nystop] 100,000 unit/gram powder 1 applic topical BID PRN (Reason: SKIN) Mounjaro 15 mg/0.5 mL pen injector 15 mg subcut QWEEK fluorometholone 0.1 % drops,suspension 1 drp ophthalmic (eye) BID dicyclomine 20 mg tablet 20 mg PO BID PRN (Reason: IBS) oxycodone-acetaminophen 5-325 mg tablet 0.5 - 1 tab PO QDAY PRN (Reason: pain) 3 Days Qty: 10 0RF (DME) Accu-Chek Ada Plus test strp Strip See Rx Instructions .Route Qty: 100 6RF Rx Instructions: As directed pantoprazole 40 mg tablet,delayed release (DR/EC) 40 mg PO DAILY Qty: 90 1RF albuterol sulfate 90 mcg/actuation HFA aerosol inhaler 2 puff inhalation Q6H PRN (Reason: shortness of breath or wheezing) Qty: 8.5 2RF Eliquis 5 mg tablet 5 mg PO BID Qty: 180 3RF losartan 50 mg tablet 50 mg PO BID Qty: 180 3RF Discontinued donepezil 10 mg tablet 20 mg PO DAILY Rx Instructions: with lunch ropinirole 1 mg tablet 1 mg PO 1200 Rx Instructions: 1mg at lunch and 2mg at HS ropinirole 2 mg tablet 2 mg PO QHS Rx Instructions: 1mg at lunch and 2mg at HS hydroxyzine HCl 50 mg tablet 50 mg PO BID PRN (Reason: anxiety) Qty: 60 1RF quetiapine 100 mg tablet 100 mg PO QHS Qty: 90 1RF gabapentin 300 mg capsule 300 mg PO QDAY baclofen 10 mg tablet 10 mg PO TID PRN (Reason: for pain) Referrals / Follow Up: Carlton Rocha [facility], [facility] [Primary Care Provider, Family Practice] Disposition Disposition (needs filled in before D/C Order can be placed): [facility]
[2025-01-20 11:00] VITALS: PULSE 69
[2025-01-20 11:09] VITALS: BP 128/71; PULSE 72; RESP 18; TEMP 36.6; O2SAT 100; BMI 25.9
--- NOTE | 2025-01-20 11:12 | PHA.DC.MR.R ---
Pharmacy MA Med Reconciliation Pharmacy Service has performed discharge medication reconciliation for this patient. The patient's discharge medication list was reviewed for discrepancies and discrepancies were resolved. Medications at Discharge Home Medications modafinil 200 mg tablet 200 mg PO DAILY FATIGUE 12/12/19 acetaminophen 500 mg tablet 1,000 mg (2 x 500 mg) PO TID PRN pain -02/03 #1 TAB 07/29/20 cholecalciferol (vitamin D3) 125 mcg (5,000 unit) capsule 125 mcg PO DAILY supplement 11/05/21 ferrous sulfate 325 mg (65 mg iron) tablet 325 mg PO DAILY supplement 11/05/21 aspirin 81 mg tablet,delayed release (Adult Aspirin Regimen) 81 mg PO DAILY heart health 04/01/22 ascorbic acid (vitamin C) 500 mg chewable tablet 500 mg PO DAILY supplement 06/06/22 atorvastatin 40 mg tablet 40 mg PO QHS cholesterol 06/06/22 denosumab 60 mg/mL subcutaneous syringe (Prolia) 60 mg subcut [id number] bone health 06/06/22 albuterol sulfate 2.5 mg/3 mL (0.083 %) solution for nebulization 2.5 mg (3 mL) inhalation Q8H PRN Dyspnea, wheezing #180 mL 07/21/22 blood sugar diagnostic (Accu-Chek Ada Plus test strips) #100 ea 07/29/22 pantoprazole 40 mg tablet,delayed release 40 mg PO DAILY gerd #90 tabs 09/04/22 insulin lispro 100 unit/mL subcutaneous pen 1 sliding scale dose subcut QAC 09/11/22 hydrocortisone 2.5 % topical cream 1 applic topical BID PRN skin irritation #454 grams 09/12/22 albuterol sulfate 90 mcg/actuation aerosol inhaler 2 puff inhalation Q6H PRN shortness of breath or wheezing #8.5 grams 10/29/22 vibegron 75 mg tablet (Gemtesa) 75 mg PO DAILY 01/30/23 lidocaine 5 % topical patch (Lidoderm) 1 patch topical DAILY 06/22/23 sucralfate 1 gram tablet 1 g PO 4X/DAY reflux 03/01/24 fluorometholone 0.1 % eye drops,suspension 1 drp ophthalmic (eye) BID 07/10/24 nystatin 100,000 unit/gram topical powder (Nystop) 1 applic topical BID PRN SKIN 07/18/24 tizanidine 2 mg tablet 2 mg PO DAILY PRN pain 07/18/24 apixaban 5 mg tablet (Eliquis) 5 mg PO BID blood thinn #180 tabs 08/31/24 ondansetron HCl 4 mg tablet 4 mg PO Q8H PRN nausea and vomiting #30 tabs 09/26/24 carvedilol 6.25 mg tablet 6.25 mg PO BID heart rate #180 tabs 09/29/24 dicyclomine 20 mg tablet 20 mg PO BID PRN IBS 09/29/24 isosorbide mononitrate 30 mg tablet,extended release 24 hr 30 mg PO BID heart #180 tabs 09/29/24 nitroglycerin 0.4 mg sublingual tablet 0.4 mg sublingual Q5-15M #25 tabs 09/29/24 ramelteon 8 mg tablet 8 mg PO QHS PRN sleep #90 tabs 10/03/24 tirzepatide 15 mg/0.5 mL subcutaneous pen injector (Mounjaro) 15 mg subcut QWEEK 12/20/24 losartan 50 mg tablet 50 mg PO BID Dose increased after ER visit last night #180 tabs 12/21/24 duloxetine 30 mg capsule,delayed release 30 mg PO BID mental health #180 caps 01/10/25 Arthritis Pain Compound 3 click topical BID ##0 01/20/25 baclofen 10 mg tablet 10 mg PO BID #0 tabs 01/20/25 donepezil 10 mg tablet 10 mg PO 1200 #0 tabs 01/20/25 gabapentin 100 mg capsule 100 mg PO DAILY #0 caps 01/20/25 oxycodone-acetaminophen 5 mg-325 mg tablet 0.5 - 1 tab PO QDAY PRN pain 3 days #10 tabs 01/20/25 potassium chloride 20 mEq/15 mL oral liquid 20 meq (15 mL) PO BID #0 mL 01/20/25 pramipexole 0.5 mg tablet 0.5 mg PO 1200 #0 tabs 01/20/25 pramipexole 1 mg tablet 1 mg PO QHS #0 tabs 01/20/25 quetiapine 25 mg tablet 50 mg (2 x 25 mg) PO QHS #0 tabs 01/20/25 thiamine HCl (vitamin B1) 100 mg tablet 100 mg PO BREAKFAST #0 tabs 01/20/25
--- NOTE | 2025-01-20 11:58 | CASEMGMT ---
Addendum entered by Opal Fang 01/20/25 12:05: Patients pre-cert approved received. 7000s completed. Original Note: Social Work Physician completed the DC orders and signed med list. 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 Patient is DC to [facility]. PRAVIN called [facility] and left a message about DC to [facility]. PRAVIN spoke with Marisol at [facility] and informed her regarding the DC to [facility]. PRAVIN notified the patients nurse, the patient and her sister regarding the DC to [facility] and patient being picked up 100pm. DANIEL Mcadams
--- NOTE | 2025-01-20 12:28 | NURSING ---
[facility] [place] [phone]. Pt to be picked up at 13:00.
--- NOTE | 2025-01-20 12:43 | DS.PCM_ITS ---
Providers Date of Admission: 01/15/25 Primary Care Physician: JAYRO Gonzalez Consultations 01/13/25 22:12 Consult: Tele-Neurology Routine Consulting Provider: [facility] Reason for Consult: Acute Ischemic Stroke/TIA EMERGENT Consult: No MD Notified: Yes Date Notified: 01/13/25 Time Notified: 23:30 Method of Notification: Answering Service Nursing Unit Staff Notify [facility] of Tele-Neurology Consult: Yes Reason For Visit: HYPOKALEMIA, ELEVATED BNP Diagnosis Discharge Diagnosis (1) Elevated brain natriuretic peptide (BNP) level: Status: Acute Code(s): R79.89 - Other specified abnormal findings of blood chemistry (2) Shoulder pain: Status: Acute Code(s): M25.519 - Pain in unspecified shoulder Medications at Discharge Home Medications modafinil 200 mg tablet 200 mg PO DAILY FATIGUE 12/12/19 acetaminophen 500 mg tablet 1,000 mg (2 x 500 mg) PO TID PRN pain -02/03 #1 TAB 07/29/20 cholecalciferol (vitamin D3) 125 mcg (5,000 unit) capsule 125 mcg PO DAILY supplement 11/05/21 ferrous sulfate 325 mg (65 mg iron) tablet 325 mg PO DAILY supplement 11/05/21 aspirin 81 mg tablet,delayed release (Adult Aspirin Regimen) 81 mg PO DAILY heart health 04/01/22 ascorbic acid (vitamin C) 500 mg chewable tablet 500 mg PO DAILY supplement 06/06/22 atorvastatin 40 mg tablet 40 mg PO QHS cholesterol 06/06/22 denosumab 60 mg/mL subcutaneous syringe (Prolia) 60 mg subcut [id number] bone health 06/06/22 albuterol sulfate 2.5 mg/3 mL (0.083 %) solution for nebulization 2.5 mg (3 mL) inhalation Q8H PRN Dyspnea, wheezing #180 mL 07/21/22 blood sugar diagnostic (Accu-Chek Ada Plus test strips) #100 ea 07/29/22 pantoprazole 40 mg tablet,delayed release 40 mg PO DAILY gerd #90 tabs 09/04/22 insulin lispro 100 unit/mL subcutaneous pen 1 sliding scale dose subcut QAC 09/11/22 hydrocortisone 2.5 % topical cream 1 applic topical BID PRN skin irritation #454 grams 09/12/22 albuterol sulfate 90 mcg/actuation aerosol inhaler 2 puff inhalation Q6H PRN shortness of breath or wheezing #8.5 grams 10/29/22 vibegron 75 mg tablet (Gemtesa) 75 mg PO DAILY 01/30/23 lidocaine 5 % topical patch (Lidoderm) 1 patch topical DAILY 06/22/23 sucralfate 1 gram tablet 1 g PO 4X/DAY reflux 03/01/24 fluorometholone 0.1 % eye drops,suspension 1 drp ophthalmic (eye) BID 07/10/24 nystatin 100,000 unit/gram topical powder (Nystop) 1 applic topical BID PRN SKIN 07/18/24 tizanidine 2 mg tablet 2 mg PO DAILY PRN pain 07/18/24 apixaban 5 mg tablet (Eliquis) 5 mg PO BID blood thinn #180 tabs 08/31/24 ondansetron HCl 4 mg tablet 4 mg PO Q8H PRN nausea and vomiting #30 tabs 09/26/24 carvedilol 6.25 mg tablet 6.25 mg PO BID heart rate #180 tabs 09/29/24 dicyclomine 20 mg tablet 20 mg PO BID PRN IBS 09/29/24 isosorbide mononitrate 30 mg tablet,extended release 24 hr 30 mg PO BID heart #180 tabs 09/29/24 nitroglycerin 0.4 mg sublingual tablet 0.4 mg sublingual Q5-15M #25 tabs 09/29/24 ramelteon 8 mg tablet 8 mg PO QHS PRN sleep #90 tabs 10/03/24 tirzepatide 15 mg/0.5 mL subcutaneous pen injector (Mounjaro) 15 mg subcut QWEEK 12/20/24 losartan 50 mg tablet 50 mg PO BID Dose increased after ER visit last night #180 tabs 12/21/24 duloxetine 30 mg capsule,delayed release 30 mg PO BID mental health #180 caps 01/10/25 Arthritis Pain Compound 3 click topical BID ##0 01/20/25 baclofen 10 mg tablet 10 mg PO BID #0 tabs 01/20/25 donepezil 10 mg tablet 10 mg PO 1200 #0 tabs 01/20/25 gabapentin 100 mg capsule 100 mg PO DAILY #0 caps 01/20/25 oxycodone-acetaminophen 5 mg-325 mg tablet 0.5 - 1 tab PO QDAY PRN pain 3 days #10 tabs 01/20/25 potassium chloride 20 mEq/15 mL oral liquid 20 meq (15 mL) PO BID #0 mL 01/20/25 pramipexole 0.5 mg tablet 0.5 mg PO 1200 #0 tabs 01/20/25 pramipexole 1 mg tablet 1 mg PO QHS #0 tabs 01/20/25 quetiapine 25 mg tablet 50 mg (2 x 25 mg) PO QHS #0 tabs 01/20/25 thiamine HCl (vitamin B1) 100 mg tablet 100 mg PO BREAKFAST #0 tabs 01/20/25 Hospital Course Operations None Procedures 2-D Echocardiogram Summary of Care Provided Minutes Spent on Discharge: 36 Hospital Course: Per HPI: ELO HERNANDEZ, is a 69-year-old female with history of diabetes, GERD, hx hf w/ recovered EF, fatigue, restless leg syndrome, depression, A-fib, hypertension, coronary artery disease presented [facility] ED 01/12/2025 for chest pain for the past 3 days. In the ED patient afebrile, heart rate 94, blood pressure 175/92, respiratory rate 14 and pulse ox 98% on room air. White blood cell count 14.3 hemoglobin 14.3. BMP showed potassium of 2.3, normal kidney function, glucose of 186. Noted to have a troponin of 32 with a repeat of 33. Magnesium 1.6. Chest x-ray with bilateral pulmonary vascular congestion. cervical spine x-ray and shoulder x-ray no acute process. Symptoms seemed most consistent with musculoskeletal pain as pain was reproducible and initially had been improving with lidocaine patches and supportive care however patient has elevated heart score and has elevated BNP, that in combination with unclear reason for increased white blood cell count and patient's potassium of 2.3 ED physician contacted hospitalist for admission. Patient evaluated at bedside, reports that she has had some pain in the left side of her chest and left shoulder for 3 days, initially was responding to ice and topical measures but today it seemed worse prompting her to come to the ED to verify there was no underlying cardiac etiology. Patient denies cough or shortness of breath, does note that the pain is reproducible and is worsened with movement, did not respond to nitro, is stabbing in nature. Patient reports she drinks enough water but has had poor p.o. intake as she has felt anxious and depressed so has not been eating well, denies any abdominal pain, nausea or vomiting, no changes in bowel or bladder, no swelling in extremities. Hospital course: 1. Acute toxic encephalopathy secondary to polypharmacy as well as nutritional deficiency in the setting of mild dementia?69-year-old female presents to the hospital with confusion. Her home medications were decreased by about 50% as she was on multiple medications that could lead to sedation and encephalopathy. She was also started on thiamine as there is concern for possible alcohol use as well as nutritional deficiency. Unfortunately we cannot get a thiamine level back quickly so she was just started on treatment. Over the weekend she was unresponsive verbally though she was alert and she started talking again on Thursday with full conversations today. She does have a history of chronic pain which also makes management of her toxic encephalopathy challenging. Workup for stroke was unremarkable, echocardiogram with an EF of 45% and mild concentric left ventricular hypertrophy and she is on multiple medications for this. MRI was negative for stroke and carotid duplex was unremarkable. I discussed with her the plan for discharge today and she expressed understanding the risks and benefits of going to a fdc and she would like to go today. 2. Chronic systolic CHF, essential hypertension, CAD status post stent, hyperlipidemia, type 2 diabetes, GERD, restless leg syndrome, anxiety, depression, paroxysmal A-fib are all chronic medical conditions which complicate her care. Her home medications were continued where appropriate. Physical Exam Narrative General: Alert, Oriented x3, Cooperative, No apparent distress HEENT: Atraumatic, PERRLA, EOMI, Normocephalic Oral: Moist Mucosa Neck: Supple, No JVD Lungs: Diminished, Normal air movement, No rhonchi, No wheeze, No rales Cardiovascular: Regular rate, Regular Rhythm, Normal S1, Normal S2, No murmurs Abdomen: Soft, Non Tender, Non-Distended, No Hepato-splenomegaly Extremities: No edema, Capillary Refill Less than 3 Seconds Skin: No rashes, No breakdown Musculoskeletal: No Tenderness to Palpation of Joints or Extremities Neurological: No focal neurological deficits, moves all extremities Psych/Mental Status: Normal affect, appropriate Medical Records Data Medical Nutrition Assessment Dietitian: Malnutrition Criteria Met Start: 01/18/25 15:17 Freq: Status: Active Protocol: Document 01/18/25 15:17 RMA (Rec: 01/18/25 15:17 RMA [id number]) Nutrition Malnutrition Evidence of Yes Malnutrition Exists Malnutrition ( Chronic moderate): Evidenced By Suboptimal Energy Intake (Moderate),Weight Loss ( Moderate) Intake Problem Inadequate Oral Intake Etiology related to swallowing/chewing difficulty Signs/Symptoms as evidenced by failed dysphagia screening and need for mechanically altered food; PO less than 50% meals since admit Status Active Problem Clinical Problem Chronic Disease or Condition Related Malnutrition Etiology moderate protein-calorie malnutrition in the context of chronic disease and debility related to inadequate energy/oral intake and swallowing difficulty Signs/Symptoms as evidenced by ~7% unintentional weight loss x past 3- 4 months, PO meeting less than 75% estimated nutrition needs and need for mechanically altered diet to minced/ moist food Status Active Problem Recommendation Dietitian Will liberalize diet to Carbohydrate Controlled with Recommendations/ consistency/texture as per PLATEMAN. Changes Will continue 120mL ensure plus HP 3 times per day w/ meals. Will add fortified pudding with lunch and dinner. Weight / BMI Weight Weight: 141 lb 15.643 oz Body Mass Index (BMI) 25.9 ABG / Lab / Microbiology Data 01/20/25 06:07 01/20/25 06:07 Laboratory: Laboratory Results - last 24 hr 01/19/25 15:42: POC Glucose 125 H 01/19/25 21:48: POC Glucose 239 H 01/20/25 06:07: WBC 5.4, RBC 4.16 L, Hgb 12.3, Hct 36.7 L, MCV 88.2, MCH 29.6, MCHC 33.5, RDW Std Deviation 41.6, RDW Coeff of Yeimi 12.9, Plt Count 240, MPV 9.6, Immature Gran % (Auto) 0.400, Neut % (Auto) 39.2 L, Lymph % (Auto) 42.1 H, [place] % (Auto) 11.4 H, Eos % (Auto) 5.4 H, Baso % (Auto) 1.5 H, Absolute Neuts (auto) 2.1, Absolute Lymphs (auto) 2.26, Nucleated RBC % 0, Sodium 134, Potassium 4.1, Chloride 102, Carbon Dioxide 21.4, Anion Gap 10, BUN 17, Creatinine 0.71, Estim Creat Clear Calc 57.66, Est GFR (MDRD) Non-Af 92, B UN/Creatinine Ratio 23.9 H, Glucose 151 H, Calcium 10.7 01/20/25 06:36: POC Glucose 139 H 01/20/25 11:31: POC Glucose 196 H Microbiology: Microbiology 01/12/25 18:14 Urine, Clean Catch Urine Culture - Final Mixed Gram Positive Organisms 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 D/C Instructions DC O2, CPAP, BIPAP Needs Home O2 Discharge instructions: No Meaningful Use Info Meaningful Use Meaningful Use Diagnoses (Choose all that apply): None applicable Discharge Plan Admission Admit Date/Time: 01/15/25 15:01 Attending Provider: Filiberto Lin Primary Care Provider: Carlton Rocha [facility] Consulting Providers: Florence Santos; Ivan Schwartz; Gabriel Yeung; Adelaida Viramontes; Kandy Rueda; Dayana Woods; Suhas Renner; Amalia Porras; Reymundo Sands; Gautam Childers; Daniel Barboza; Carmen Rivera; Katharina Valentine; Eliseo Valdivia; Mónica Whitley; Laurel Marinelli; Chapin Naranjo; Fawad Nolan; Alex Allen; Fidel Rosario; Lily Benitez; Christine Reynolds; Mikhail Aquino Discharge Orders/Prescriptions Prescriptions: New Arthritis Pain Compound 3 click topical BID Qty: 0 0RF donepezil 10 mg Tablet 10 mg PO 1200 Qty: 0 0RF baclofen 10 mg Tablet 10 mg PO BID Qty: 0 0RF gabapentin 100 mg Capsule 100 mg PO DAILY Qty: 0 0RF quetiapine 25 mg Tablet 50 mg PO QHS Qty: 0 0RF pramipexole 1 mg Tablet 1 mg PO QHS Qty: 0 0RF thiamine HCl (vitamin B1) 100 mg Tablet 100 mg PO BREAKFAST Qty: 0 0RF potassium chloride 20 mEq/15 mL Liquid 20 meq PO BID Qty: 0 0RF pramipexole 0.5 mg Tablet 0.5 mg PO 1200 Qty: 0 0RF Continued cholecalciferol (vitamin D3) 125 mcg (5,000 unit) capsule 125 mcg PO DAILY ferrous sulfate 325 mg (65 mg iron) tablet 325 mg PO DAILY aspirin [Adult Aspirin Regimen] 81 mg tablet,delayed release (DR/EC) 81 mg PO DAILY insulin lispro 100 unit/mL insulin pen 1 sliding scale dose subcut QAC Patient Comments: Use with meals based on PRE meal blood sugar SLIDING SCALE as needed #1 (1 unit for every 50 over 150) Max 20 units daily. albuterol sulfate 2.5 mg /3 mL (0.083 %) solution for nebulization 2.5 mg inhalation Q8H PRN (Reason: Dyspnea, wheezing) Qty: 180 0RF hydrocortisone 2.5 % cream 1 applic topical BID PRN (Reason: skin irritation) Qty: 454 1RF Gemtesa 75 mg tablet 75 mg PO DAILY lidocaine [Lidoderm] 5 % adhesive patch,medicated 1 patch topical DAILY Rx Instructions: leave on most painful area for up to 12 hrs sucralfate 1 gram tablet 1 g PO 4X/DAY carvedilol 6.25 mg tablet 6.25 mg PO BID Qty: 180 3RF Rx Instructions: must administer with a meal/food isosorbide mononitrate 30 mg tablet extended release 24 hr 30 mg PO BID Qty: 180 3RF nitroglycerin 0.4 mg tablet, sublingual 0.4 mg sublingual Q5-15M Qty: 25 3RF ramelteon 8 mg tablet 8 mg PO QHS PRN (Reason: sleep) Qty: 90 1RF ondansetron HCl 4 mg tablet 4 mg PO Q8H PRN Qty: 30 2RF duloxetine 30 mg capsule,delayed release(DR/EC) 30 mg PO BID Qty: 180 2RF modafinil 200 MG tablet 200 mg PO DAILY acetaminophen 500 MG tablet 1,000 mg PO TID PRN (Reason: pain 1-02/03) Qty: 1 0RF Rx Instructions: alternate with ibuprofen atorvastatin 40 mg tablet 40 mg PO QHS ascorbic acid (vitamin C) 500 mg tablet,chewable 500 mg PO DAILY Prolia 60 mg/mL syringe 60 mg subcut [id number] Patient Comments: PT STATES LAST GIVEN END OF JUNE tizanidine 2 mg tablet 2 mg PO DAILY PRN (Reason: pain) Rx Instructions: TAKE 1 TABLET BY MOUTH EVERY MORNING and 1 to 2 TABLETS AT BEDTIME NEEDED FOR PAIN control nystatin [Nystop] 100,000 unit/gram powder 1 applic topical BID PRN (Reason: SKIN) Mounjaro 15 mg/0.5 mL pen injector 15 mg subcut QWEEK fluorometholone 0.1 % drops,suspension 1 drp ophthalmic (eye) BID dicyclomine 20 mg tablet 20 mg PO BID PRN (Reason: IBS) oxycodone-acetaminophen 5-325 mg tablet 0.5 - 1 tab PO QDAY PRN (Reason: pain) 3 Days Qty: 10 0RF (DME) Accu-Chek Ada Plus test strp Strip See Rx Instructions .Route Qty: 100 6RF Rx Instructions: As directed pantoprazole 40 mg tablet,delayed release (DR/EC) 40 mg PO DAILY Qty: 90 1RF albuterol sulfate 90 mcg/actuation HFA aerosol inhaler 2 puff inhalation Q6H PRN (Reason: shortness of breath or wheezing) Qty: 8.5 2RF Eliquis 5 mg tablet 5 mg PO BID Qty: 180 3RF losartan 50 mg tablet 50 mg PO BID Qty: 180 3RF Discontinued donepezil 10 mg tablet 20 mg PO DAILY Rx Instructions: with lunch ropinirole 1 mg tablet 1 mg PO 1200 Rx Instructions: 1mg at lunch and 2mg at HS ropinirole 2 mg tablet 2 mg PO QHS Rx Instructions: 1mg at lunch and 2mg at HS hydroxyzine HCl 50 mg tablet 50 mg PO BID PRN (Reason: anxiety) Qty: 60 1RF quetiapine 100 mg tablet 100 mg PO QHS Qty: 90 1RF gabapentin 300 mg capsule 300 mg PO QDAY baclofen 10 mg tablet 10 mg PO TID PRN (Reason: for pain) Referrals / Follow Up: Carlton Rocha Cassandra, [facility] [Primary Care Provider, Family Practice] Disposition Disposition (needs filled in before D/C Order can be placed): Detention Facility Charges/Coding Visit Charges Inpatient E&M: 78155 Disch Hosp >30min
[2025-01-21 18:08] LABS: Vitamin B1, Thiamine 114.2 nmol/L (66.5-200.0)
== END 2025-01-20 15:14 | disposition skilled nursing facility (03) | DRG 92 ==
LOC: ED 16:15 → PCU 16:17
PROVIDERS: Family Medicine; Internal Medicine; Admitting Provider Internal Medicine; Emergency Provider Emergency Medicine; PCP Nurse Practitioner Family; Visit Provider Family Medicine
DX: G92.8 Other toxic encephalopathy (principal); E44.0 Moderate protein-calorie malnutrition; I50.32 Chronic diastolic (congestive) heart failure; R47.01 Aphasia; I11.0 Hypertensive heart disease with heart failure; I48.0 Paroxysmal atrial fibrillation; E11.9 Type 2 diabetes mellitus without complications; F03.A0 Unspecified dementia, mild, without behavioral disturbance, psychotic disturbance, mood disturbance, and anxiety; G25.81 Restless legs syndrome; F32.A Depression, unspecified; E78.00 Pure hypercholesterolemia, unspecified; Z79.4 Long term (current) use of insulin; I25.10 Atherosclerotic heart disease of native coronary artery without angina pectoris; E87.6 Hypokalemia; K21.9 Gastro-esophageal reflux disease without esophagitis; M25.512 Pain in left shoulder; I25.5 Ischemic cardiomyopathy; F41.9 Anxiety disorder, unspecified; F17.210 Nicotine dependence, cigarettes, uncomplicated; I25.2 Old myocardial infarction; E83.42 Hypomagnesemia; T50.915A Adverse effect of multiple unspecified drugs, medicaments and biological substances, initial encounter; G89.29 Other chronic pain; R79.89 Other specified abnormal findings of blood chemistry; Z68.27 Body mass index [BMI] 27.0-27.9, adult; Z91.041 Radiographic dye allergy status; Z79.01 Long term (current) use of anticoagulants; Z79.82 Long term (current) use of aspirin; Z79.85 Long-term (current) use of injectable non-insulin antidiabetic drugs; Z79.899 Other long term (current) drug therapy; Z95.5 Presence of coronary angioplasty implant and graft
CPT/HCPCS: 36415; 70450; 70551; 71046; 72040; 73030; 80048; 80061; 80307; 81001; 82306; 82607; 82962; 83036; 83735; 83880; 84100; 84425; 84443; 84484; 85025; 87086; 87088; 92526; 92610; 93005; 93306; 93880; 94762; 97116; 97162; 97166; 97168; 97530; 97535; 97802; 97803; 99285; 99406; Q9957; A4216

== ENCOUNTER → 2025-02-22 | Outpatient (CLI) | payer MEDICARE, MEDICAID, SELFPAY ==
[2016-07-13 11:45] VITALS: BMI 31.4
[2025-02-22 13:08] LABS: AST(SGOT) 20 U/L (<=31); Alanine Aminotransfer ALT/SGPT 21 U/L (<=34); Albumin, Serum 3.7 g/dL (3.4-4.8); Alkaline Phosphatase 174 U/L (35-104); Anion Gap 8 (5-15); BUN 22 mg/dL (4-19); BUN/Creat Ratio 30.7 RATIO (10-20); Calcium,Total 10.4 mg/dL (7.6-11.0); Carbon Dioxide 25.8 mmol/L (21.0-32.0); Chloride 102 mmol/L (98-108); Ferritin 73 ng/mL (22-378); Globulin 2.2 g/dL (2.2-4.2); Glucose 188 mg/dL (70-99); Iron 65 ug/dL (50-170); Iron Binding Capacity,Total 286 ug/dL (250-450); Iron Binding Capacity,Unsat 221 ug/dL (228-428); Magnesium 1.7 mg/dL (1.5-2.2); Potassium 4.2 mmol/L (3.3-5.1); Vitamin B12 1785 pg/mL (180-914); Vitamin D,25 Hydroxy 48.2 ng/mL (30-100)
== END | disposition home or self-care (01) ==
LOC: LAB.FUTURE 10:04
PROVIDERS: PCP Nurse Practitioner Family; Referring Provider Family Medicine; Visit Provider Family Medicine
DX: E56.9 Vitamin deficiency, unspecified (principal); E87.6 Hypokalemia
CPT/HCPCS: 36415; 80053; 82306; 82607; 82728; 83540; 83550; 83735

== ENCOUNTER → 2025-04-05 | Outpatient (CLI) | payer MEDICARE, MEDICAID, SELFPAY ==
[2016-07-13 11:45] VITALS: BMI 31.4
[2025-04-05 16:58] LABS: Hematocrit 39.1 % (37-47); Hemoglobin 12.4 g/dL (12.0-15.0); Immature Granulocytes Count 0.040 X10^3/uL (0.0-0.0); Mean Corp Hgb Conc 31.7 g/dL (32-36); Mean Corpuscular Volume 93.3 fL (81-99); Mean Platelet Vol. 10.1 fl (6.2-12.0); NRBC Flagged by Analyzer 0 % (0-5); Platelet Count 232 K/mm3 (150-450); RBC Distribution Width CV 14.3 % (11.6-14.6); RBC Distribution Width SD 48.9 fl (35.1-43.9); Red Blood Count 4.19 M/mm3 (4.2-5.4); White Blood Count 7.3 K/mm3 (4.4-11.0)
[2025-04-05 17:15] LABS: AST(SGOT) 27 U/L (<=31); Alanine Aminotransfer ALT/SGPT 31 U/L (<=34); Albumin, Serum 3.6 g/dL (3.4-4.8); Alkaline Phosphatase 155 U/L (35-104); Anion Gap 10 (5-15); BUN 23 mg/dL (4-19); BUN/Creat Ratio 37.1 RATIO (10-20); Calcium,Total 11.0 mg/dL (7.6-11.0); Carbon Dioxide 26.8 mmol/L (21.0-32.0); Chloride 100 mmol/L (98-108); Globulin 2.6 g/dL (2.2-4.2); Glucose 183 mg/dL (70-99); Potassium 4.7 mmol/L (3.3-5.1)
[2025-04-05 17:35] LABS: Iron 46 ug/dL (50-170); Iron Binding Capacity,Total 251 ug/dL (250-450); Iron Binding Capacity,Unsat 205 ug/dL (228-428); Magnesium 1.6 mg/dL (1.5-2.2)
== END | disposition home or self-care (01) ==
LOC: VSLAB 11:07
PROVIDERS: PCP Nurse Practitioner Family; Referring Provider Nurse Practitioner Family; Visit Provider Nurse Practitioner Family
DX: I10 Essential (primary) hypertension (principal)
CPT/HCPCS: 36415; 80053; 83540; 83550; 83735; 85025